=== PATIENT | female | born 1960 | race Two or more races ===

== ENCOUNTER 2020-02-29 15:39 | Inpatient (IN) | payer MEDICAID ==
[~2020-02-29] VITALS: Ht 154.9 cm; Wt 129.8 kg
[2020-02-29 15:54] VITALS: BP 136/92
--- NOTE | 2020-02-29 16:16 | Emergency Room Report ---
History of Present Illness General Chief Complaint: Skin Rash/Abscess Source: Patient, EMS Present Illness HPI Patient presents with complaints of increased swelling and redness to both of her feet and legs Patient is a poor historian reports that she has been having increased weakness over the past several days she tried to stand up and felt too weak Denies any fevers Denies any vomiting or diarrhea Patient reports recent hospitalization for similar Allergies: Coded Allergies: No Known Allergies (Unverified , 02/29/20) COVID-19 Screening Contact w/high risk pt: No Recent Travel to affected area: No Experienced COVID-19 symptoms?: No Patient History Past Medical History: see triage record Reviewed Nursing Documentation: PMH: Agreed; PSxH: Agreed Nursing Documentation-PMH Past Medical History: No History, Except For Review of Systems All Other Systems: negative except mentioned in HPI Physical Exam Vital Signs Date Time Temp Pulse Resp B/P (MAP) Pulse Ox O2 Delivery O2 Flow Rate FiO2 02/29/20 15:40 99.0 89 16 136/92 (107) 99 Room Air Sp02 EP Interpretation: reviewed, normal General Appearance: no apparent distress Head: normocephalic, atraumatic Eyes: bilateral eye PERRL, bilateral eye EOMI ENT: EOM grossly intact Neck: supple Respiratory: lungs clear, no respiratory distress, no retraction Cardiovascular #1: regular rate, rhythm Gastrointestinal: non tender, soft Musculoskeletal: other - Significant edema and erythema bilateral lower extremity, patient also has blistering on both feet given the edema Neurologic: alert, oriented x3 Skin: other - As above Lymphatic: no adenopathy Medical Decision Making Diagnostic Impression: Primary Impression: Cellulitis ER Course Given the patient's exam and presentation multiple differentials and consideration including but not limited to venous stasis Cellulitis, DVT, abscess Patient also on the work-up reveals no signs of anemia Started on IV antibiotics And will require further inpatient care Labs Test 02/29/20 16:32 White Blood Count 8.2 K/UL (4.8-10.8) Red Blood Count 2.26 M/UL (4.20-5.40) Hemoglobin 7.9 G/DL (12.0-16.0) Hematocrit 24.1 % (37.0-47.0) Mean Corpuscular Volume 107 FL (80-99) Mean Corpuscular Hemoglobin 35.1 PG (27.0-31.0) Mean Corpuscular Hemoglobin Concent 32.9 G/DL (32.0-36.0) Red Cell Distribution Width 16.0 % (11.6-14.8) Platelet Count 155 K/UL (150-450) Mean Platelet Volume 7.2 FL (6.5-10.1) Neutrophils (%) (Auto) % (45.0-75.0) Lymphocytes (%) (Auto) % (20.0-45.0) Monocytes (%) (Auto) % (1.0-10.0) Eosinophils (%) (Auto) % (0.0-3.0) Basophils (%) (Auto) % (0.0-2.0) Differential Total Cells Counted 100 Neutrophils % (Manual) 77 % (45-75) Lymphocytes % (Manual) 13 % (20-45) Monocytes % (Manual) 7 % (1-10) Eosinophils % (Manual) 3 % (0-3) Basophils % (Manual) 0 % (0-2) Band Neutrophils 0 % (0-8) Nucleated Red Blood Cells 10 /100 WBC Platelet Estimate Adequate Platelet Morphology Normal Hypochromasia 2+ Anisocytosis 1+ Macrocytosis 1+ Urine Color Yellow Urine Appearance Clear Urine pH 7 (4.5-8.0) Urine Specific [place] 1.010 (1.005-1.035) Urine Protein 2+ (NEGATIVE) Urine Glucose (UA) Negative (NEGATIVE) Urine Ketones 1+ (NEGATIVE) Urine Blood 1+ (NEGATIVE) Urine Nitrite Negative (NEGATIVE) Urine Bilirubin 2+ (NEGATIVE) Urine Ictotest Negative (NEGATIVE) Urine Urobilinogen 12 MG/DL (0.0-1.0) Urine Leukocyte Esterase 1+ (NEGATIVE) Urine RBC 2-4 /HPF (0 - 2) Urine WBC 5-10 /HPF (0 - 2) Urine Squamous Epithelial Cells Moderate /LPF (NONE/OCC) Urine Bacteria Few /HPF (NONE) Sodium Level 139 MMOL/L (136-145) Potassium Level 3.7 MMOL/L (3.5-5.1) Chloride Level 105 MMOL/L (98-107) Carbon Dioxide Level 28 MMOL/L (21-32) Anion Gap 6 mmol/L (5-15) Blood Urea Nitrogen 5 mg/dL (7-18) Creatinine 0.7 MG/DL (0.55-1.30) Estimat Glomerular Filtration Rate > 60 mL/min (>60) Glucose Level 97 MG/DL (74-106) Lactic Acid Level 1.80 mmol/L (0.4-2.0) Calcium Level 8.6 MG/DL (8.5-10.1) Total Bilirubin 1.1 MG/DL (0.2-1.0) Direct Bilirubin 0.5 MG/DL (0.0-0.3) Aspartate Amino Transf (AST/SGOT) 48 U/L (15-37) Alanine Aminotransferase (ALT/SGPT) 21 U/L (12-78) Alkaline Phosphatase 137 U/L (46-116) Total Creatine Kinase 244 U/L (26-308) Creatine Kinase MB 5.2 NG/ML (0.0-3.6) Creatine Kinase MB Relative Index 2.1 Troponin I 0.015 ng/mL (0.000-0.056) Pro-B-Type Natriuretic Peptide 968 pg/mL (0-125) Total Protein 7.7 G/DL (6.4-8.2) Albumin 2.0 G/DL (3.4-5.0) Globulin 5.7 g/dL Albumin/Globulin Ratio 0.4 (1.0-2.7) Lipase 99 U/L (73-393) Rhythm Strip Diag. Results EP Interpretation: yes Rate: 66 Rhythm: NSR, no PVC's, no ectopy Chest X-Ray Diagnostic Results Chest X-Ray Diagnostic Results : Chest X-Ray Ordered: Yes # of Views/Limited/Complete: 1 View Indication: Chest Pain EP Interpretation: Yes Interpretation: no pneumothorax, other - Cardiomegaly left lower lobe atelectasis versus effusion Impression: Other - Cardiomegaly left lower lobe atelectasis versus effusion Last Vital Signs Date Time Temp Pulse Resp B/P (MAP) Pulse Ox O2 Delivery O2 Flow Rate FiO2 02/29/20 15:54 99.0 87 16 136/92 99 Room Air Status: improved Disposition: ADMITTED INPATIENT Condition: Serious Celso Escalante Feb 29, 2020 16:16
[2020-02-29 16:48] LABS: APPEARANCE,URINE CLEAR; BILIRUBIN, URINE 2+ (NEGATIVE); GLUCOSE, URINE (UA) NEGATIVE (NEGATIVE); HEMATOCRIT 24.1 % (37.0-47.0); HEMOGLOBIN 7.9 G/DL (12.0-16.0); KETONES,URINE 1+ (NEGATIVE); MEAN CORPUSCULAR VOLUME 107 FL (80-99); NITRITE,URINE NEGATIVE (NEGATIVE); PH,URINE 7 (4.5-8.0); PLATELET COUNT 155 K/UL (150-450); PROTEIN,URINE 2+ (NEGATIVE); RED BLOOD COUNT 2.26 M/UL (4.20-5.40); UROBILINOGEN,URINE 12 MG/DL (0.0-1.0); WHITE BLOOD COUNT 8.2 K/UL (4.8-10.8)
--- NOTE | 2020-02-29 16:58 | Diagnostic Imaging Report ---
Indication: Chest pain Technique: One view of the chest Comparison: none Findings: Body habitus limits evaluation. The heart is enlarged. Before meals opacity at the left lung base may indicate some hazy infiltrate, although possibly exaggerated by overlying soft tissue. Impression: Cardiomegaly Possible left basilar infiltrate versus edema. Correlate with clinical findings
[2020-02-29 17:04] LABS: ANION GAP 6 mmol/L (5-15); BLOOD UREA NITROGEN 5 mg/dL (7-18); CALCIUM 8.6 MG/DL (8.5-10.1); CARBON DIOXIDE 28 MMOL/L (21-32); CHLORIDE 105 MMOL/L (98-107); CREATININE 0.7 MG/DL (0.55-1.30); POTASSIUM 3.7 MMOL/L (3.5-5.1); SODIUM 139 MMOL/L (136-145)
[2020-02-29 17:07] LABS: COLOR,URINE YELLOW
[2020-02-29 17:08] LABS: LEUKOCYTE ESTERASE ,URINE 1+ (NEGATIVE)
[2020-02-29 17:18] LABS: ALANINE AMINOTRANSFERASE 21 U/L (12-78); ALBUMIN/GLOBULIN RATIO 0.4 (1.0-2.7); ALKALINE PHOSPHATASE 137 U/L (46-116); ASPARTATE AMINO TRANSFERASE 48 U/L (15-37); BILIRUBIN,TOTAL 1.1 MG/DL (0.2-1.0); CKMB 5.2 NG/ML (0.0-3.6); CREATINE KINASE 244 U/L (26-308)
[2020-02-29 17:19] LABS: BILIRUBIN,DIRECT 0.5 MG/DL (0.0-0.3)
[2020-02-29] MEDS ORDERED: cefTRIAXone 1 GM in D5W 55 ML IVPB ONE (18:15)
[2020-02-29] MEDS ORDERED: Vancomycin 1.5gm/NS Premix 275 ML IVPB SCH (18:15)
[2020-02-29] MEDS ORDERED: Vancomycin 1.5 GM in NS 275 ML IVPB SCH (18:17)
[2020-02-29 18:34] VITALS: BP 135/90
[2020-02-29] MEDS ORDERED: SYNTHROID75 MCG ORAL (20:21)
[2020-02-29 20:36] VITALS: BP 103/53
[2020-03-01] VITALS: BP 92/57
[2020-03-01 04:20] VITALS: BP 107/44
[2020-03-01 06:26] LABS: HEMATOCRIT 19.4 % (37.0-47.0); MEAN CORPUSCULAR VOLUME 100 FL (80-99); PLATELET COUNT 136 K/UL (150-450); RED BLOOD COUNT 1.94 M/UL (4.20-5.40); RED CELL DISTRIBUTION WIDTH 14.7 % (11.6-14.8); WHITE BLOOD COUNT 6.5 K/UL (4.8-10.8)
[2020-03-01 06:46] LABS: ANION GAP 9 mmol/L (5-15); BLOOD UREA NITROGEN 5 mg/dL (7-18); CARBON DIOXIDE 25 MMOL/L (21-32); CHLORIDE 108 MMOL/L (98-107); CREATININE 0.9 MG/DL (0.55-1.30); POTASSIUM 3.6 MMOL/L (3.5-5.1); SODIUM 142 MMOL/L (136-145)
[2020-03-01 08:00] VITALS: BP 101/49
[2020-03-01 08:11] LABS: CALCIUM 8.1 MG/DL (8.5-10.1)
--- NOTE | 2020-03-01 09:30 | General Progress Note ---
Assessment/Plan Assessment/Plan: macrocytic anemia elevated LFTS ?cirrhosis cellulitis abd us anemia work up abx per id hepatitis panel will fu Subjective Allergies: Coded Allergies: No Known Allergies (Unverified , 02/29/20) Objective Last 24 Hour Vital Signs Date Time Temp Pulse Resp B/P (MAP) Pulse Ox O2 Delivery O2 Flow Rate FiO2 03/01/20 08:00 98.4 83 20 101/49 (66) 93 03/01/20 04:20 98.1 90 20 107/44 (65) 94 02/29/20 20:36 97.3 80 20 103/53 (70) 96 02/29/20 20:32 Nasal Cannula 2.0 02/29/20 20:03 Nasal Cannula 2.0 02/29/20 20:02 Nasal Cannula 2.0 02/29/20 18:42 98.9 89 18 140/90 99 Room Air 02/29/20 18:34 99.0 86 18 135/90 99 Room Air 02/29/20 15:54 99.0 87 16 136/92 99 Room Air 02/29/20 15:40 99.0 89 16 136/92 (107) 99 Room Air Intake and Output 02/29/20 03/01/20 19:00 07:00 Intake Total 275.0 ml Balance 275.0 ml Intake IV Total 275.0 ml # Voids 1 1 Laboratory Tests 02/29/20 16:32: White Blood Count 8.2, Red Blood Count 2.26L, Hemoglobin 7.9L, Hematocrit 24.1L , Mean Corpuscular Volume 107H, Mean Corpuscular Hemoglobin 35.1H, Mean Corpuscular Hemoglobin Concent 32.9, Red Cell Distribution Width 16.0H, Platelet Count 155, Mean Platelet Volume 7.2, Neutrophils (%) (Auto) , Lymphocytes (%) (Auto) , Monocytes (%) (Auto) , Eosinophils (%) (Auto) , Basophils (%) (Auto) , Differential Total Cells Counted 100, Neutrophils % ( Manual) 77H, Lymphocytes % (Manual) 13L, Monocytes % (Manual) 7, Eosinophils % ( Manual) 3, Basophils % (Manual) 0, Band Neutrophils 0, Nucleated Red Blood Cells 10, Platelet Estimate Adequate, Platelet Morphology Normal, Hypochromasia 2+, Anisocytosis 1+, Macrocytosis 1+, Urine Color Yellow, Urine Appearance Clear , Urine pH 7, Urine Specific [place] 1.010, Urine Protein 2+H, Urine Glucose (UA ) Negative, Urine Ketones 1+H, Urine Blood 1+H, Urine Nitrite Negative, Urine Bilirubin 2+H, Urine Ictotest Negative, Urine Urobilinogen 12H, Urine Leukocyte Esterase 1+H, Urine RBC 2-4H, Urine WBC 5-10H, Urine Squamous Epithelial Cells ModerateH, Urine Bacteria Few, Sodium Level 139, Potassium Level 3.7, Chloride Level 105, Carbon Dioxide Level 28, Anion Gap 6, Blood Urea Nitrogen 5L, Creatinine 0.7, Estimat Glomerular Filtration Rate > 60, Glucose Level 97, Lactic Acid Level 1.80, Calcium Level 8.6, Total Bilirubin 1.1H, Direct Bilirubin 0.5H, Aspartate Amino Transf (AST/SGOT) 48H, Alanine Aminotransferase (ALT/SGPT) 21, Alkaline Phosphatase 137H, Total Creatine Kinase 244, Creatine Kinase MB 5.2H, Creatine Kinase MB Relative Index 2.1, Troponin I 0.015, Pro-B- Type Natriuretic Peptide 968H, Total Protein 7.7, Albumin 2.0L, Globulin 5.7, Albumin/Globulin Ratio 0.4L, Lipase 99 03/01/20 05:20: White Blood Count 6.5, Red Blood Count 1.94L, Hemoglobin 7.0L, Hematocrit 19.4L , Mean Corpuscular Volume 100H, Mean Corpuscular Hemoglobin 36.0H, Mean Corpuscular Hemoglobin Concent 36.0, Red Cell Distribution Width 14.7, Platelet Count 136L, Mean Platelet Volume 6.2L, Neutrophils (%) (Auto) , Lymphocytes (%) (Auto) , Monocytes (%) (Auto) , Eosinophils (%) (Auto) , Basophils (%) (Auto) , Differential Total Cells Counted 100, Neutrophils % (Manual) 73, Lymphocytes % ( Manual) 13L, Monocytes % (Manual) 12H, Eosinophils % (Manual) 2, Basophils % ( Manual) 0, Band Neutrophils 0, Platelet Estimate DecreasedL, Platelet Morphology Normal, Hypochromasia 3+, Anisocytosis 1+, Sodium Level 142, Potassium Level 3.6, Chloride Level 108H, Carbon Dioxide Level 25, Anion Gap 9, Blood Urea Nitrogen 5L, Creatinine 0.9, Estimat Glomerular Filtration Rate > 60 , Glucose Level 106, Calcium Level 8.1L, Spherocytes 2+ Height (Feet): 5 Height (Inches): 1.00 Weight (Pounds): 289 General Appearance: alert EENT: normal ENT inspection Neck: supple Cardiovascular: normal rate Respiratory/Chest: decreased breath sounds Abdomen: normal bowel sounds, non tender, soft Extremities: non-tender Tam Spicer MD Mar 01, 2020 09:30
--- NOTE | 2020-03-01 11:58 | Consultation ---
History of Present Illness General Date patient seen: Mar 01, 2020 Reason for Hospitalization: Skin Rash/Abscess Present Illness HPI 59 year old morbidly obese female with multiple medical comorbidities presents to [facility] ED with complaints of increased swelling and redness to both of her feet and legs. Patient is a poor historian reports that she has been having increased weakness over the past several days she tried to stand up and felt too weak. Denies any fevers. Denies any vomiting or diarrhea. states pain in both legs as burning pain. no n/v/f/c. labs abnormal. admitted for care and management. surgery called to evaluate and assist with care. patient seen, chart reviewed patient examined. Allergies: Coded Allergies: No Known Allergies (Unverified , 02/29/20) COVID-19 Screening Contact w/high risk pt: No Recent Travel to affected area: No Experienced COVID-19 symptoms?: No Medication History Scheduled Levothyroxine Sodium* (Synthroid*), 75 MCG ORAL DAILY, (Reported) Patient History Limited by: medical condition History Provided By: Patient, Medical Record, PMD Healthcare decision maker Resuscitation status Advanced Directive on File No Past Medical/Surgical History Past Medical/Surgical History: (1) Cellulitis Review of Systems Review of Symptoms General ROS: no weight loss or fever Psychological ROS: no depression or mood changes, no memory loss Ophthalmic ROS: no visual changes or eye irritation ENT ROS: no nasal congestion, hearing loss, dizziness Allergy and Immunology ROS: no allergic symptoms or urticaria Hematological and Lymphatic ROS: no swollen glands, unusual bleeding or bruising Endocrine ROS: no polyuria, polydipsia, weight changes, temperature intolerance Respiratory ROS: no cough, shortness of breath, or wheezing Cardiovascular ROS: no chest pain or dyspnea on exertion Gastrointestinal ROS: denies abdominal pain, bright red blood in stool. Musculoskeletal ROS: ++ LE myalgias or arthralgias Neurological ROS: no TIA or stroke symptoms Dermatological ROS: no new or changing skin lesions, rashes or pruritis Physical Exam Physical Exam General appearance: alert, cooperative, no distress, appears stated age Head: Normocephalic, without obvious abnormality, atraumatic Eyes: conjunctivae/corneas clear. PERRL, EOM's intact. Fundi benign Throat: Lips, mucosa, and tongue normal. Teeth and gums normal Neck: supple, symmetrical, trachea midline, no adenopathy, thyroid: not enlarged, symmetric, no tenderness/mass/nodules, no carotid bruit and no JVD Lungs: clear to auscultation bilaterally Heart: regular rate and rhythm, S1, S2 normal, no murmur, click, rub or gallop Abdomen: soft, non-tender. Bowel sounds normal. No masses, no organomegaly Extremities: extremities normal, atraumatic, no cyanosis or edema Pulses: 2+ and symmetric Skin: Skin color, texture, turgor normal. No rashes or lesions Neurologic: Grossly normal Last 24 Hour Vital Signs Date Time Temp Pulse Resp B/P (MAP) Pulse Ox O2 Delivery O2 Flow Rate FiO2 03/01/20 09:00 Nasal Cannula 2.0 03/01/20 08:00 98.4 83 20 101/49 (66) 93 03/01/20 04:20 98.1 90 20 107/44 (65) 94 02/29/20 20:36 97.3 80 20 103/53 (70) 96 02/29/20 20:32 Nasal Cannula 2.0 02/29/20 20:03 Nasal Cannula 2.0 02/29/20 20:02 Nasal Cannula 2.0 02/29/20 18:42 98.9 89 18 140/90 99 Room Air 02/29/20 18:34 99.0 86 18 135/90 99 Room Air 02/29/20 15:54 99.0 87 16 136/92 99 Room Air 02/29/20 15:40 99.0 89 16 136/92 (107) 99 Room Air Intake and Output 02/29/20 03/01/20 19:00 07:00 Intake Total 275.0 ml Balance 275.0 ml Intake IV Total 275.0 ml # Voids 1 1 Laboratory Tests Test 02/29/20 16:32 03/01/20 05:20 White Blood Count 8.2 K/UL (4.8-10.8) 6.5 K/UL (4.8-10.8) Red Blood Count 2.26 M/UL (4.20-5.40) L 1.94 M/UL (4.20-5.40) L Hemoglobin 7.9 G/DL (12.0-16.0) L 7.0 G/DL (12.0-16.0) L Hematocrit 24.1 % (37.0-47.0) L 19.4 % (37.0-47.0) L Mean Corpuscular Volume 107 FL (80-99) H 100 FL (80-99) H Mean Corpuscular Hemoglobin 35.1 PG (27.0-31.0) H 36.0 PG (27.0-31.0) H Mean Corpuscular Hemoglobin Concent 32.9 G/DL (32.0-36.0) 36.0 G/DL (32.0-36.0) Red Cell Distribution Width 16.0 % (11.6-14.8) H 14.7 % (11.6-14.8) Platelet Count 155 K/UL (150-450) 136 K/UL (150-450) L Mean Platelet Volume 7.2 FL (6.5-10.1) 6.2 FL (6.5-10.1) L Neutrophils (%) (Auto) % (45.0-75.0) % (45.0-75.0) Lymphocytes (%) (Auto) % (20.0-45.0) % (20.0-45.0) Monocytes (%) (Auto) % (1.0-10.0) % (1.0-10.0) Eosinophils (%) (Auto) % (0.0-3.0) % (0.0-3.0) Basophils (%) (Auto) % (0.0-2.0) % (0.0-2.0) Differential Total Cells Counted 100 100 Neutrophils % (Manual) 77 % (45-75) H 73 % (45-75) Lymphocytes % (Manual) 13 % (20-45) L 13 % (20-45) L Monocytes % (Manual) 7 % (1-10) 12 % (1-10) H Eosinophils % (Manual) 3 % (0-3) 2 % (0-3) Basophils % (Manual) 0 % (0-2) 0 % (0-2) Band Neutrophils 0 % (0-8) 0 % (0-8) Nucleated Red Blood Cells 10 /100 WBC Platelet Estimate Adequate Decreased L Platelet Morphology Normal Normal Hypochromasia 2+ 3+ Anisocytosis 1+ 1+ Macrocytosis 1+ Urine Color Yellow Urine Appearance Clear Urine pH 7 (4.5-8.0) Urine Specific [place] 1.010 (1.005-1.035) Urine Protein 2+ (NEGATIVE) H Urine Glucose (UA) Negative (NEGATIVE) Urine Ketones 1+ (NEGATIVE) H Urine Blood 1+ (NEGATIVE) H Urine Nitrite Negative (NEGATIVE) Urine Bilirubin 2+ (NEGATIVE) H Urine Ictotest Negative (NEGATIVE) Urine Urobilinogen 12 MG/DL (0.0-1.0) H Urine Leukocyte Esterase 1+ (NEGATIVE) H Urine RBC 2-4 /HPF (0 - 2) H Urine WBC 5-10 /HPF (0 - 2) H Urine Squamous Epithelial Cells Moderate /LPF (NONE/OCC) H Urine Bacteria Few /HPF (NONE) Sodium Level 139 MMOL/L (136-145) 142 MMOL/L (136-145) Potassium Level 3.7 MMOL/L (3.5-5.1) 3.6 MMOL/L (3.5-5.1) Chloride Level 105 MMOL/L (98-107) 108 MMOL/L (98-107) H Carbon Dioxide Level 28 MMOL/L (21-32) 25 MMOL/L (21-32) Anion Gap 6 mmol/L (5-15) 9 mmol/L (5-15) Blood Urea Nitrogen 5 mg/dL (7-18) L 5 mg/dL (7-18) L Creatinine 0.7 MG/DL (0.55-1.30) 0.9 MG/DL (0.55-1.30) Estimat Glomerular Filtration Rate > 60 mL/min (>60) > 60 mL/min (>60) Glucose Level 97 MG/DL (74-106) 106 MG/DL (74-106) Lactic Acid Level 1.80 mmol/L (0.4-2.0) Calcium Level 8.6 MG/DL (8.5-10.1) 8.1 MG/DL (8.5-10.1) L Total Bilirubin 1.1 MG/DL (0.2-1.0) H Direct Bilirubin 0.5 MG/DL (0.0-0.3) H Aspartate Amino Transf (AST/SGOT) 48 U/L (15-37) H Alanine Aminotransferase (ALT/SGPT) 21 U/L (12-78) Alkaline Phosphatase 137 U/L (46-116) H Total Creatine Kinase 244 U/L (26-308) Creatine Kinase MB 5.2 NG/ML (0.0-3.6) H Creatine Kinase MB Relative Index 2.1 Troponin I 0.015 ng/mL (0.000-0.056) Pro-B-Type Natriuretic Peptide 968 pg/mL (0-125) H Total Protein 7.7 G/DL (6.4-8.2) Albumin 2.0 G/DL (3.4-5.0) L Globulin 5.7 g/dL Albumin/Globulin Ratio 0.4 (1.0-2.7) L Lipase 99 U/L (73-393) Spherocytes 2+ Height (Feet): 5 Height (Inches): 1.00 Weight (Pounds): 289 Medications Current Medications Medications (Trade) Dose Ordered Sig/Dolores Route PRN Reason Start Time Stop Time Status Last Admin Dose Admin Acetaminophen (Tylenol) 650 mg Q4H PRN ORAL Mild Pain (Pain Scale 1-3) 02/29/20 20:00 03/30/20 19:59 Diphenhydramine HCl (Benadryl) 25 mg Q4H PRN ORAL moderate itching 02/29/20 20:00 03/30/20 19:59 Diphenhydramine HCl (Benadryl) 50 mg Q4H PRN ORAL SEVERE ITCHING 02/29/20 20:00 03/30/20 19:59 Vancomycin HCl (Vanco rx to dose) 1 ea DAILY PRN MISC Per rx protocol 03/01/20 11:00 03/31/20 10:59 Vancomycin HCl 1 gm/Dextrose 275 ml @ 183.708 mls/hr Q12H IVPB 03/01/20 13:00 03/06/20 12:59 Assessment/Plan Problem List: (1) Cellulitis Assessment & Plan: bilateral lower extremity cellulitis / edema chronic venous status changes dermatitis no abscess no purulent drainage ulcerations forming. keep lower extremity elevated while in bed apply skin protectant / moisturizing cream daily okay to shower okay to wrap soft after cream abx as per ID for cellulitis okay for diet duplex ordered trend labs will follow with recs thank you ICD Codes: L03.90 - Cellulitis, unspecified SNOMED: [id number] Qualifiers: Qualified Codes: L03.119 - Cellulitis of unspecified part of limb Theron Sotomayor Mar 01, 2020 11:58
[2020-03-01 12:00] VITALS: BP 115/53
--- NOTE | 2020-03-01 12:50 | Diagnostic Imaging Report ---
Indication: Abdominal pain Technique: Multiplanar grayscale and duplex Doppler imaging of the abdomen Comparison: None Findings: Coarsened and increased hepatic echotexture with a subtle nodular contour suggesting cirrhotic change. There is trace free fluid/ascites about the liver. No focal hepatic mass lesion is appreciated sonographically. Imaged hepatic veins appear patent. Main portal vein appears patent with normal direction of flow. Gallbladder is not visualized and may be surgically absent. No appreciable intrahepatic biliary ductal dilatation. Common bile duct measures 4 mm diameter. Pancreas is suboptimally evaluated however the imaged portions of the pancreatic head appears grossly unremarkable. Kidneys demonstrate normal echogenicity. There is no hydronephrosis or sonographically appreciable renal stone. Spleen is mildly enlarged measuring 14 cm in length. The aorta is obscured by overlying bowel gas. IMPRESSION: * Coarsened liver echotexture and nodular contour suggesting cirrhosis. * Sequela of portal hypertension including mild splenomegaly and trace perihepatic ascites. * Gallbladder is not visualized and likely surgically absent. Correlate with surgical history. No biliary ductal dilatation.
[2020-03-01] MEDS: Vancomycin 1gm/D5W 275ml IVPB SCH ×2 (13:18)
--- NOTE | 2020-03-01 13:25 | Diagnostic Imaging Report ---
Indication:Leg pain and swelling Technique: Grayscale and duplex Doppler imaging of the veins in both lower extremities performed in real time utilizing compression and augmentation. Note that patient refused imaging of the right calf and left leg Comparison: None Findings: Duplex Doppler interrogation of the veins in right lower extremity is performed from the common femoral vein to the popliteal vein. Normal venous compressibility demonstrated throughout. No thrombus identified. Waveform analysis shows good respiratory phasicity and augmentation. Patient refused evaluation of the left leg. IMPRESSION: No evidence of deep venous thrombosis involving the visualized veins of the RIGHT lower extremity. Per ct technologist patient refused evaluation of the left leg.
--- NOTE | 2020-03-01 14:00 | Consultation ---
History of Present Illness General Chief Complaint: Skin Rash/Abscess Present Illness Allergies: Coded Allergies: No Known Allergies (Unverified , 02/29/20) Medication History Scheduled Levothyroxine Sodium* (Synthroid*), 75 MCG ORAL DAILY, (Reported) Patient History Healthcare decision maker Resuscitation status Advanced Directive on File No Physical Exam Last 24 Hour Vital Signs Date Time Temp Pulse Resp B/P (MAP) Pulse Ox O2 Delivery O2 Flow Rate FiO2 03/01/20 12:00 98.1 81 20 115/53 (73) 96 03/01/20 09:00 Nasal Cannula 2.0 03/01/20 08:00 98.4 83 20 101/49 (66) 93 03/01/20 04:20 98.1 90 20 107/44 (65) 94 02/29/20 20:36 97.3 80 20 103/53 (70) 96 02/29/20 20:32 Nasal Cannula 2.0 02/29/20 20:03 Nasal Cannula 2.0 02/29/20 20:02 Nasal Cannula 2.0 02/29/20 18:42 98.9 89 18 140/90 99 Room Air 02/29/20 18:34 99.0 86 18 135/90 99 Room Air 02/29/20 15:54 99.0 87 16 136/92 99 Room Air 02/29/20 15:40 99.0 89 16 136/92 (107) 99 Room Air Intake and Output 02/29/20 03/01/20 19:00 07:00 Intake Total 275.0 ml Balance 275.0 ml Intake IV Total 275.0 ml # Voids 1 1 Laboratory Tests Test 02/29/20 16:32 03/01/20 05:20 White Blood Count 8.2 K/UL (4.8-10.8) 6.5 K/UL (4.8-10.8) Red Blood Count 2.26 M/UL (4.20-5.40) L 1.94 M/UL (4.20-5.40) L Hemoglobin 7.9 G/DL (12.0-16.0) L 7.0 G/DL (12.0-16.0) L Hematocrit 24.1 % (37.0-47.0) L 19.4 % (37.0-47.0) L Mean Corpuscular Volume 107 FL (80-99) H 100 FL (80-99) H Mean Corpuscular Hemoglobin 35.1 PG (27.0-31.0) H 36.0 PG (27.0-31.0) H Mean Corpuscular Hemoglobin Concent 32.9 G/DL (32.0-36.0) 36.0 G/DL (32.0-36.0) Red Cell Distribution Width 16.0 % (11.6-14.8) H 14.7 % (11.6-14.8) Platelet Count 155 K/UL (150-450) 136 K/UL (150-450) L Mean Platelet Volume 7.2 FL (6.5-10.1) 6.2 FL (6.5-10.1) L Neutrophils (%) (Auto) % (45.0-75.0) % (45.0-75.0) Lymphocytes (%) (Auto) % (20.0-45.0) % (20.0-45.0) Monocytes (%) (Auto) % (1.0-10.0) % (1.0-10.0) Eosinophils (%) (Auto) % (0.0-3.0) % (0.0-3.0) Basophils (%) (Auto) % (0.0-2.0) % (0.0-2.0) Differential Total Cells Counted 100 100 Neutrophils % (Manual) 77 % (45-75) H 73 % (45-75) Lymphocytes % (Manual) 13 % (20-45) L 13 % (20-45) L Monocytes % (Manual) 7 % (1-10) 12 % (1-10) H Eosinophils % (Manual) 3 % (0-3) 2 % (0-3) Basophils % (Manual) 0 % (0-2) 0 % (0-2) Band Neutrophils 0 % (0-8) 0 % (0-8) Nucleated Red Blood Cells 10 /100 WBC Platelet Estimate Adequate Decreased L Platelet Morphology Normal Normal Hypochromasia 2+ 3+ Anisocytosis 1+ 1+ Macrocytosis 1+ Urine Color Yellow Urine Appearance Clear Urine pH 7 (4.5-8.0) Urine Specific Mcneal 1.010 (1.005-1.035) Urine Protein 2+ (NEGATIVE) H Urine Glucose (UA) Negative (NEGATIVE) Urine Ketones 1+ (NEGATIVE) H Urine Blood 1+ (NEGATIVE) H Urine Nitrite Negative (NEGATIVE) Urine Bilirubin 2+ (NEGATIVE) H Urine Ictotest Negative (NEGATIVE) Urine Urobilinogen 12 MG/DL (0.0-1.0) H Urine Leukocyte Esterase 1+ (NEGATIVE) H Urine RBC 2-4 /HPF (0 - 2) H Urine WBC 5-10 /HPF (0 - 2) H Urine Squamous Epithelial Cells Moderate /LPF (NONE/OCC) H Urine Bacteria Few /HPF (NONE) Sodium Level 139 MMOL/L (136-145) 142 MMOL/L (136-145) Potassium Level 3.7 MMOL/L (3.5-5.1) 3.6 MMOL/L (3.5-5.1) Chloride Level 105 MMOL/L (98-107) 108 MMOL/L (98-107) H Carbon Dioxide Level 28 MMOL/L (21-32) 25 MMOL/L (21-32) Anion Gap 6 mmol/L (5-15) 9 mmol/L (5-15) Blood Urea Nitrogen 5 mg/dL (7-18) L 5 mg/dL (7-18) L Creatinine 0.7 MG/DL (0.55-1.30) 0.9 MG/DL (0.55-1.30) Estimat Glomerular Filtration Rate > 60 mL/min (>60) > 60 mL/min (>60) Glucose Level 97 MG/DL (74-106) 106 MG/DL (74-106) Lactic Acid Level 1.80 mmol/L (0.4-2.0) Calcium Level 8.6 MG/DL (8.5-10.1) 8.1 MG/DL (8.5-10.1) L Total Bilirubin 1.1 MG/DL (0.2-1.0) H Direct Bilirubin 0.5 MG/DL (0.0-0.3) H Aspartate Amino Transf (AST/SGOT) 48 U/L (15-37) H Alanine Aminotransferase (ALT/SGPT) 21 U/L (12-78) Alkaline Phosphatase 137 U/L (46-116) H Total Creatine Kinase 244 U/L (26-308) Creatine Kinase MB 5.2 NG/ML (0.0-3.6) H Creatine Kinase MB Relative Index 2.1 Troponin I 0.015 ng/mL (0.000-0.056) Pro-B-Type Natriuretic Peptide 968 pg/mL (0-125) H Total Protein 7.7 G/DL (6.4-8.2) Albumin 2.0 G/DL (3.4-5.0) L Globulin 5.7 g/dL Albumin/Globulin Ratio 0.4 (1.0-2.7) L Lipase 99 U/L (73-393) Spherocytes 2+ Height (Feet): 5 Height (Inches): 1.00 Weight (Pounds): 289 Medications Current Medications Medications (Trade) Dose Ordered Sig/Dolores Route PRN Reason Start Time Stop Time Status Last Admin Dose Admin Acetaminophen (Tylenol) 650 mg Q4H PRN ORAL Mild Pain (Pain Scale 1-3) 02/29/20 20:00 03/30/20 19:59 Diphenhydramine HCl (Benadryl) 25 mg Q4H PRN ORAL moderate itching 02/29/20 20:00 03/30/20 19:59 Diphenhydramine HCl (Benadryl) 50 mg Q4H PRN ORAL SEVERE ITCHING 02/29/20 20:00 03/30/20 19:59 Vancomycin HCl (Vanco rx to dose) 1 ea DAILY PRN MISC Per rx protocol 03/01/20 11:00 03/31/20 10:59 Vancomycin HCl 1 gm/Dextrose 275 ml @ 183.708 mls/hr Q12H IVPB 03/01/20 13:00 03/06/20 12:59 03/01/20 13:18 Assessment/Plan Assessment/Plan: Hematology Consultation REQ : Sindi Blevins RFC: Pancytopenia, Anemia severe DOS: 03/01/2020 ID Patient presents with complaints of increased swelling and redness to both of her feet and legs Patient is a poor historian reports that she has been having increased weakness over the past several days she tried to stand up and felt too weak Denies any fevers Denies any vomiting or diarrhea Has been seen by gi and surg Patient reports recent hospitalization for similar Allergies: Coded Allergies: No Known Allergies (Unverified , 02/29/20) COVID-19 Screening Contact w/high risk pt: No Recent Travel to affected area: No Experienced COVID-19 symptoms?: No Patient History Past Medical History: see triage record Reviewed Nursing Documentation: PMH: Agreed; PSxH: Agreed Social hx: 6 kids, no Noris, is single Nursing Documentation-PMH Past Medical History: No History, Except For ROS (review of systems): Constitutional: No fever, no chills, no night sweats, no fatigue Skin: No rashes, lumps, itchiness, dryness HEENT: No CEDILLO, ear ache, visual changes, double vision, nosebleeds Breasts: No lumps, pain, discharge Pulmonary: No cough, sputum, shortness of breath, coughing up blood Cardiovascular: No chest pain, tightness, palpitations, syncope, PND GI: No nausea, vomiting, diarrhea, melena, hematochezia, change in appetite, : No dysuria, frequency, urgency, urinary incontinence, foamy urine Musculoskeletal: No joint swelling or muscle pain, trauma, back pain Neurologic: No dizziness, fainting, seizures, changes in smell or taste Psychiatric: No nervousness, stress, or depression, anxiety, hallucinations Endocrine: No weight change, heat or cold intolerance, tremor, insomnia Physical Exam: Vitals: reviewed General: NAD HEENT: nc, at Neck: supple Chest: clear breath sounds bilaterally Cardiovascular: RRR, no s3, s4 EXT ++ Significant edema and erythema bilateral lower extremity, patient also has blistering on both feet given the edema, whittish overcrust/crusting++ Neurologic: alert, oriented x3 Skin: other - As above labs: noted Imaging: reviewed Assessment and Recs # Pancytopenia -- multiple etiologies could be related to underlying liver disease, medication-induced, infection versus viral syndrome versus underlying bone marrow cause, in this case, has severe liver disease and cirrhosis --> peripheral smear has been ordered and does not show significant abnormalities --> Medications have been reviewed --> Continue to monitor for improvement, trend cbc --> Hep panel and HIV have been ordered --> US abd ordered to r/o cirrhosis and hepatosplenomegaly ->CIRRHOSIS IS NOTED , LARGE SPLEEN --> reverse isolation if ANC is <2000 --> Give neupogen if ANC <1000 --> Transfuse if hgb <7, with 1 unit prbc --> consider bone marrow biopsy if no other causes are found --> anemia panel ordered as well # Cellulitis of the lower extremitiies --> continue abx as needed as per id --> Started on IV antibiotics --> as per surg recs, wound care # Elevated LFTS The timing of this note does not necessarily reflect the time of the patient was seen. Greatly appreciate consultation. rBett Mcclain MD Mar 01, 2020 14:00
[2020-03-01 14:46] LABS: FERRITIN 792 NG/ML (8-388)
[2020-03-01 16:00] VITALS: BP 100/52
--- NOTE | 2020-03-01 19:30 | Consultation ---
DATE OF CONSULTATION: 03/01/2020 INFECTIOUS DISEASES CONSULTATION CONSULTING PHYSICIAN: Jonathon Shah MD. PRIMARY ATTENDING PHYSICIAN: Celso Moreno MD. REASON FOR CONSULTATION: Cellulitis of legs. HISTORY OF PRESENT ILLNESS: This is a 59-year-old female admitted yesterday complaining of pain in bilateral foot, cannot walk, has also swelling of the legs, developed blister in the area, some of them are broken. PAST MEDICAL HISTORY: The patient is obese, anemia. ALLERGIES: No known drug allergies. MEDICATIONS: Get a dose of vancomycin and ceftriaxone. In the ER getting Tylenol and diphenhydramine in the floor. SOCIAL HISTORY: Single. Says is homeless. Denies alcohol, drug abuse, smoking. REVIEW OF SYSTEMS: No fever. No chills. No shortness of breath. No coughing. No nausea. No vomiting. She has pain in the legs. PHYSICAL EXAMINATION: VITAL SIGNS: Temperature 98.4, pulse 83, blood pressure 101/49. GENERAL APPEARANCE: Seems obese. HEAD AND NECK: Pale conjunctiva. HEART: Normal rate. LUNGS: Clear. ABDOMEN: Obese and soft. EXTREMITIES: Edema of legs, likely chronic lymphedema. SKIN: Erythema in both lower extremities below-knee associated with chronic skin changes, has blisters in both feet, some of them are open. LABORATORY AND DIAGNOSTIC DATA: Sodium 142, potassium 3.6, chloride 108, bicarbonate 25, BUN 5, creatinine 0.9, glucose 106. WBC 6.5, hemoglobin 7, hematocrit 19.4, and platelets is 136. Chest x-ray showed cardiomegaly, possible left basilar infiltrate versus edema. IMPRESSION: 1. Bilateral leg cellulitis, seems to be purulent. 2. Anemia. 3. Slight elevation in transaminase level. 4. Thrombocytopenia. 5. Homeless 6. Morbid obesity. RECOMMENDATION: We will continue with IV vancomycin. We will ask for wound culture. We will check HIV status. At the end of my exam, I thank Dr. Moreno, for involving me in the care of this patient. Jonathon Shah M.D. : Jessica JOB#: [id number] CC: ROMAN
[2020-03-01 20:00] VITALS: BP 107/60
[2020-03-01] MEDS: Morphine Sulfate 2mg/ml Inj(IV/IM USE ONLY) IVP PRN (20:48)
[2020-03-02] VITALS (8 sets, daily range): BP systolic 92–118; BP diastolic 52–71
[2020-03-02] MEDS: Vancomycin 1gm/D5W 275ml IVPB SCH ×4 (01:21→15:58)
--- NOTE | 2020-03-02 04:14 | History and Physical Report ---
DATE OF ADMISSION: 02/29/2020 HISTORY OF PRESENT ILLNESS: The patient is here for bilateral leg cellulitis and anemia. The patient does have some leg pain as well. Denies nausea, vomiting, or diarrhea. The patient had increased swelling in the legs and redness of both legs, and is a poor historian, and is complaining of weakness. Denies shortness of breath. Denies cough. Admitted for lower extremity cellulitis as well as anemia. PAST MEDICAL HISTORY: None. PAST SURGICAL HISTORY: None. ALLERGIES: No known allergies. MEDICATIONS: None. FAMILY HISTORY: Noncontributory. SOCIAL HISTORY: Denies alcohol or illicit drugs. Has a history of smoking. REVIEW OF SYSTEMS: HEENT: Denies headaches. Respiratory: Denies shortness of breath. Denies cough. Cardiovascular: Denies chest pain. Gastrointestinal: Denies nausea, vomiting, or diarrhea. Extremities: Reports worsening leg edema and redness as well as weakness. Central Nervous System: No change in speech pattern. PHYSICAL EXAMINATION: VITAL SIGNS: Temperature is 98.1, pulse is 90, blood pressure 107/44. HEENT: PERRLA. NECK: Supple. No lymphadenopathy. CHEST: Clear to auscultation. CARDIOVASCULAR: Regular rate and rhythm. No murmurs or extra sounds. GASTROINTESTINAL: Soft, nontender, nondistended. No organomegaly. EXTREMITIES: Does have edema and redness. Warm to touch in the lower extremities. Able to moves all extremities. Reflexes equal on both sides. LABORATORY DATA: WBC of 8.3, hemoglobin 7.9, platelets of 155. Sodium 139, potassium 3.7. Troponin 0.015. ASSESSMENT AND PLAN: Cellulitis of lower extremities and anemia. I have consulted Dr. Brett Mcclain and Dr. Jonathon Shah as well as Dr. Barrientos and Dr. Case for leg pain as well as elevated LFTs as well as for anemia workup. Consult with those doctors for those reasons. We need to know why the patient is anemic as well. I have consulted Dr. Barrientos and Dr. Brett Mcclain for anemia workup as well as for possible transfusion. Antibiotics per Dr. Jonathon Shah. Ali Hadadz, M.D. DR: Cem JOB#: [id number] CC:
[2020-03-02 06:48] LABS: INR 1.5 (0.9-1.1)
[2020-03-02 06:58] LABS: ALANINE AMINOTRANSFERASE 26 U/L (12-78); ALBUMIN/GLOBULIN RATIO 0.4 (1.0-2.7); ALKALINE PHOSPHATASE 125 U/L (46-116); ANION GAP 9 mmol/L (5-15); ASPARTATE AMINO TRANSFERASE 53 U/L (15-37); BILIRUBIN,TOTAL 0.8 MG/DL (0.2-1.0); BLOOD UREA NITROGEN 6 mg/dL (7-18); CALCIUM 7.5 MG/DL (8.5-10.1); CARBON DIOXIDE 25 MMOL/L (21-32); CHLORIDE 106 MMOL/L (98-107); CREATININE 0.9 MG/DL (0.55-1.30); POTASSIUM 3.3 MMOL/L (3.5-5.1); SODIUM 140 MMOL/L (136-145)
[2020-03-02 06:59] LABS: HEMATOCRIT 20.5 % (37.0-47.0); HEMOGLOBIN 7.1 G/DL (12.0-16.0); MEAN CORPUSCULAR VOLUME 102 FL (80-99); PLATELET COUNT 137 K/UL (150-450); RED BLOOD COUNT 2.02 M/UL (4.20-5.40); RED CELL DISTRIBUTION WIDTH 16.5 % (11.6-14.8); WHITE BLOOD COUNT 3.3 K/UL (4.8-10.8)
[2020-03-02 07:11] LABS: AMMONIA 68 umol/L (11-32)
[2020-03-02 07:32] LABS: % IRON SATURATION 17 % (15-50); IRON 33 ug/dL (50-175); TOTAL IRON BINDING CAPACITY 194 ug/dL (250-450)
--- NOTE | 2020-03-02 10:15 | General Progress Note ---
Assessment/Plan Assessment/Plan: macrocytic anemia elevated LFTS cirrhosis cellulitis elevated Ammonia levels abd us>> reviewed add lactulose and Xifaxan fu stool ob GI procedures if needed abx per id hepatitis panel will fu Subjective Allergies: Coded Allergies: No Known Allergies (Unverified , 02/29/20) Objective Last 24 Hour Vital Signs Date Time Temp Pulse Resp B/P (MAP) Pulse Ox O2 Delivery O2 Flow Rate FiO2 03/02/20 08:00 98.0 75 18 107/59 (75) 95 03/02/20 04:00 98.2 74 18 96/63 (74) 93 03/02/20 00:00 98.6 72 20 92/57 (69) 95 03/01/20 21:00 Nasal Cannula 2.0 03/01/20 20:07 98.5 03/01/20 20:00 99.5 83 20 107/60 (76) 93 03/01/20 16:00 98.1 83 20 100/52 (68) 93 03/01/20 12:00 98.1 81 20 115/53 (73) 96 Intake and Output 03/01/20 03/02/20 19:00 07:00 Intake Total 635 ml 631.000 ml Balance 635 ml 631.000 ml Intake Oral 360 ml IV Total 275 ml 281.000 ml Other 350 ml # Voids 2 2 # Bowel Movements 1 Laboratory Tests 03/01/20 13:45: Reticulocyte Count 0.9, Ferritin 792H, Vitamin B12 Level 1784H 03/01/20 14:30: Stool Occult Blood [Pending] 03/02/20 05:50: White Blood Count 3.3L, Red Blood Count 2.02L, Hemoglobin 7.1L, Hematocrit 20.5L , Mean Corpuscular Volume 102H, Mean Corpuscular Hemoglobin 34.9H, Mean Corpuscular Hemoglobin Concent 34.4, Red Cell Distribution Width 16.5H, Platelet Count 137L, Mean Platelet Volume 6.2L, Neutrophils (%) (Auto) , Lymphocytes (%) (Auto) , Monocytes (%) (Auto) , Eosinophils (%) (Auto) , Basophils (%) (Auto) , Neutrophils % (Manual) [Pending], Lymphocytes % (Manual) [Pending], Platelet Estimate [Pending], Platelet Morphology [Pending], Prothrombin Time 15.7H, Prothromb Time International Ratio 1.5H, Sodium Level 140, Potassium Level 3.3L, Chloride Level 106, Carbon Dioxide Level 25, Anion Gap 9, Blood Urea Nitrogen 6L, Creatinine 0.9, Estimat Glomerular Filtration Rate > 60, Glucose Level 99, Calcium Level 7.5L, Iron Level 33L, Total Iron Binding Capacity 194L, Percent Iron Saturation 17, Unsaturated Iron Binding 161 , Total Bilirubin 0.8, Aspartate Amino Transf (AST/SGOT) 53H, Alanine Aminotransferase (ALT/SGPT) 26, Alkaline Phosphatase 125H, Ammonia 68H, Total Protein 7.7, Albumin 2.0L, Globulin 5.7, Albumin/Globulin Ratio 0.4L, Folate 15.4, Hepatitis A IgM Antibody [Pending], Hepatitis B Surface Antigen [Pending] , Hepatitis B Core IgM Antibody [Pending], Hepatitis C Antibody [Pending], HIV ( 1&2) Antibody Rapid Negative Height (Feet): 5 Height (Inches): 1.00 Weight (Pounds): 289 General Appearance: alert EENT: normal ENT inspection Neck: supple Cardiovascular: normal rate Respiratory/Chest: decreased breath sounds Abdomen: normal bowel sounds, non tender, soft Extremities: non-tender Tam Spicer MD Mar 02, 2020 10:15
--- NOTE | 2020-03-02 11:39 | Hematology/Onc Progress Note ---
Assessment/Plan Assessment/Plan Assessment and Recs # Pancytopenia -- multiple etiologies could be related to underlying liver disease, medication-induced, infection versus viral syndrome versus underlying bone marrow cause, in this case, has severe liver disease and cirrhosis --> peripheral smear has been ordered and does not show significant abnormalities and none noted --> Medications have been reviewed --> Continue to monitor for improvement, trend cbc --> Hep panel and HIV have been ordered --> US abd ordered to r/o cirrhosis and hepatosplenomegaly ->CIRRHOSIS IS NOTED , LARGE SPLEEN --> reverse isolation if ANC is <2000 --> Give neupogen if ANC <1000 --> Transfuse if hgb <7, with 1 unit prbc --> anemia panel ordered as well-->CW acd --> hgb trend 7-->7.1 # Cellulitis of the lower extremitiies --> continue abx as needed as per id --> Started on IV antibiotics --> as per surg recs, wound care # Elevated LFTS The timing of this note does not necessarily reflect the time of the patient was seen. Greatly appreciate consultation. Subjective HEENT: Denies: no symptoms, eye pain, blurred vision, tearing, double vision, ear pain, ear discharge, nose pain, nose congestion, throat pain, throat swelling, mouth pain, mouth swelling, other Cardiovascular: Denies: no symptoms, chest pain, edema, irregular heart rate, lightheadedness, palpitations, syncope, other Respiratory: Denies: no symptoms, cough, shortness of breath, SOB with excertion, SOB at rest, sputum, wheezing, other Gastrointestinal/Abdominal: Denies: no symptoms, abdomen distended, abdominal pain, black stools, tarry stools, blood in stool, constipated, diarrhea, difficulty swallowing, nausea, poor appetite, poor fluid intake, rectal bleeding , vomiting, other Genitourinary: Denies: no symptoms, burning, discharge, frequency, flank pain, hematuria, incontinence, pain, urgency, other Neurologic/Psychiatric: Denies: no symptoms, anxiety, depressed, emotional problems, headache, numbness, paresthesia, pre-existing deficit, seizure, tingling, tremors, weakness, other Endocrine: Denies: no symptoms, excessive sweating, flushing, intolerance to cold, intolerance to heat, increased hunger, increased thirst, increased urine, unexplained weight gain, unexplained weight loss, other Hematologic/Lymphatic: Denies: no symptoms, anemia, easy bleeding, easy bruising, adenopathy, other Allergies: Coded Allergies: No Known Allergies (Unverified , 02/29/20) Subjective 03/02 no events, no bleeding, hgb 7.1, no hemolysis Objective Objective Current Medications Medications (Trade) Dose Ordered Sig/Dolores Route PRN Reason Start Time Stop Time Status Last Admin Dose Admin Acetaminophen (Tylenol) 650 mg Q4H PRN ORAL Mild Pain (Pain Scale 1-3) 02/29/20 20:00 03/30/20 19:59 03/01/20 19:37 Diphenhydramine HCl (Benadryl) 25 mg Q4H PRN ORAL moderate itching 02/29/20 20:00 03/30/20 19:59 Diphenhydramine HCl (Benadryl) 50 mg Q4H PRN ORAL SEVERE ITCHING 02/29/20 20:00 03/30/20 19:59 Lactulose (Cephulac) 10 gm THREE TIMES A DAY ORAL 03/02/20 13:00 04/01/20 12:59 Morphine Sulfate (Morphine Sulfate) 2 mg Q4H PRN IVP For Pain 4-03/01/20 20:24 03/08/20 20:23 03/01/20 20:48 Phytonadione 1 mg/ Dextrose 55.5 ml @ 222 mls/hr ONCE ONCE IVPB 03/02/20 12:00 03/02/20 12:14 Potassium Chloride (K-Dur) 20 meq ONCE ORAL 03/02/20 10:15 03/02/20 12:00 Rifaximin (Xifaxan) 550 mg EVERY 12 HOURS ORAL 03/02/20 21:00 03/09/20 20:59 Vancomycin HCl (Vanco rx to dose) 1 ea DAILY PRN MISC Per rx protocol 03/01/20 11:00 03/31/20 10:59 Vancomycin HCl 1 gm/Dextrose 275 ml @ 183.708 mls/hr Q12H IVPB 03/01/20 13:00 03/06/20 12:59 03/02/20 01:21 Last 24 Hour Vital Signs Date Time Temp Pulse Resp B/P (MAP) Pulse Ox O2 Delivery O2 Flow Rate FiO2 03/02/20 08:00 98.0 75 18 107/59 (75) 95 03/02/20 04:00 98.2 74 18 96/63 (74) 93 03/02/20 00:00 98.6 72 20 92/57 (69) 95 03/01/20 21:00 Nasal Cannula 2.0 03/01/20 20:07 98.5 03/01/20 20:00 99.5 83 20 107/60 (76) 93 03/01/20 16:00 98.1 83 20 100/52 (68) 93 03/01/20 12:00 98.1 81 20 115/53 (73) 96 03/01/20 09:00 Nasal Cannula 2.0 03/01/20 08:00 98.4 83 20 101/49 (66) 93 03/01/20 04:20 98.1 90 20 107/44 (65) 94 03/01/20 00:00 98.6 72 20 92/57 (69) 95 02/29/20 20:36 97.3 80 20 103/53 (70) 96 02/29/20 20:32 Nasal Cannula 2.0 02/29/20 20:03 Nasal Cannula 2.0 02/29/20 20:02 Nasal Cannula 2.0 02/29/20 18:42 98.9 89 18 140/90 99 Room Air 02/29/20 18:34 99.0 86 18 135/90 99 Room Air 02/29/20 15:54 99.0 87 16 136/92 99 Room Air 02/29/20 15:40 99.0 89 16 136/92 (107) 99 Room Air Intake and Output 03/01/20 03/02/20 19:00 07:00 Intake Total 635 ml 631.000 ml Balance 635 ml 631.000 ml Intake Oral 360 ml IV Total 275 ml 281.000 ml Other 350 ml # Voids 2 2 # Bowel Movements 1 Labs Test 02/29/20 16:32 03/01/20 05:20 03/01/20 13:45 03/01/20 14:30 White Blood Count 8.2 K/UL (4.8-10.8) 6.5 K/UL (4.8-10.8) Red Blood Count 2.26 M/UL (4.20-5.40) 1.94 M/UL (4.20-5.40) Hemoglobin 7.9 G/DL (12.0-16.0) 7.0 G/DL (12.0-16.0) Hematocrit 24.1 % (37.0-47.0) 19.4 % (37.0-47.0) Mean Corpuscular Volume 107 FL (80-99) 100 FL (80-99) Mean Corpuscular Hemoglobin 35.1 PG (27.0-31.0) 36.0 PG (27.0-31.0) Mean Corpuscular Hemoglobin Concent 32.9 G/DL (32.0-36.0) 36.0 G/DL (32.0-36.0) Red Cell Distribution Width 16.0 % (11.6-14.8) 14.7 % (11.6-14.8) Platelet Count 155 K/UL (150-450) 136 K/UL (150-450) Mean Platelet Volume 7.2 FL (6.5-10.1) 6.2 FL (6.5-10.1) Neutrophils (%) (Auto) % (45.0-75.0) % (45.0-75.0) Lymphocytes (%) (Auto) % (20.0-45.0) % (20.0-45.0) Monocytes (%) (Auto) % (1.0-10.0) % (1.0-10.0) Eosinophils (%) (Auto) % (0.0-3.0) % (0.0-3.0) Basophils (%) (Auto) % (0.0-2.0) % (0.0-2.0) Differential Total Cells Counted 100 100 Neutrophils % (Manual) 77 % (45-75) 73 % (45-75) Lymphocytes % (Manual) 13 % (20-45) 13 % (20-45) Monocytes % (Manual) 7 % (1-10) 12 % (1-10) Eosinophils % (Manual) 3 % (0-3) 2 % (0-3) Basophils % (Manual) 0 % (0-2) 0 % (0-2) Band Neutrophils 0 % (0-8) 0 % (0-8) Nucleated Red Blood Cells 10 /100 WBC Platelet Estimate Adequate Decreased Platelet Morphology Normal Normal Hypochromasia 2+ 3+ Anisocytosis 1+ 1+ Macrocytosis 1+ Urine Color Yellow Urine Appearance Clear Urine pH 7 (4.5-8.0) Urine Specific [place] 1.010 (1.005-1.035) Urine Protein 2+ (NEGATIVE) Urine Glucose (UA) Negative (NEGATIVE) Urine Ketones 1+ (NEGATIVE) Urine Blood 1+ (NEGATIVE) Urine Nitrite Negative (NEGATIVE) Urine Bilirubin 2+ (NEGATIVE) Urine Ictotest Negative (NEGATIVE) Urine Urobilinogen 12 MG/DL (0.0-1.0) Urine Leukocyte Esterase 1+ (NEGATIVE) Urine RBC 2-4 /HPF (0 - 2) Urine WBC 5-10 /HPF (0 - 2) Urine Squamous Epithelial Cells Moderate /LPF (NONE/OCC) Urine Bacteria Few /HPF (NONE) Sodium Level 139 MMOL/L (136-145) 142 MMOL/L (136-145) Potassium Level 3.7 MMOL/L (3.5-5.1) 3.6 MMOL/L (3.5-5.1) Chloride Level 105 MMOL/L (98-107) 108 MMOL/L (98-107) Carbon Dioxide Level 28 MMOL/L (21-32) 25 MMOL/L (21-32) Anion Gap 6 mmol/L (5-15) 9 mmol/L (5-15) Blood Urea Nitrogen 5 mg/dL (7-18) 5 mg/dL (7-18) Creatinine 0.7 MG/DL (0.55-1.30) 0.9 MG/DL (0.55-1.30) Estimat Glomerular Filtration Rate > 60 mL/min (>60) > 60 mL/min (>60) Glucose Level 97 MG/DL (74-106) 106 MG/DL (74-106) Lactic Acid Level 1.80 mmol/L (0.4-2.0) Calcium Level 8.6 MG/DL (8.5-10.1) 8.1 MG/DL (8.5-10.1) Total Bilirubin 1.1 MG/DL (0.2-1.0) Direct Bilirubin 0.5 MG/DL (0.0-0.3) Aspartate Amino Transf (AST/SGOT) 48 U/L (15-37) Alanine Aminotransferase (ALT/SGPT) 21 U/L (12-78) Alkaline Phosphatase 137 U/L (46-116) Total Creatine Kinase 244 U/L (26-308) Creatine Kinase MB 5.2 NG/ML (0.0-3.6) Creatine Kinase MB Relative Index 2.1 Troponin I 0.015 ng/mL (0.000-0.056) Pro-B-Type Natriuretic Peptide 968 pg/mL (0-125) Total Protein 7.7 G/DL (6.4-8.2) Albumin 2.0 G/DL (3.4-5.0) Globulin 5.7 g/dL Albumin/Globulin Ratio 0.4 (1.0-2.7) Lipase 99 U/L (73-393) Spherocytes 2+ Reticulocyte Count 0.9 % (0.5-2.0) Ferritin 792 NG/ML (8-388) Vitamin B12 Level 1784 PG/ML (193-986) Test 03/02/20 05:50 White Blood Count 3.3 K/UL (4.8-10.8) Red Blood Count 2.02 M/UL (4.20-5.40) Hemoglobin 7.1 G/DL (12.0-16.0) Hematocrit 20.5 % (37.0-47.0) Mean Corpuscular Volume 102 FL (80-99) Mean Corpuscular Hemoglobin 34.9 PG (27.0-31.0) Mean Corpuscular Hemoglobin Concent 34.4 G/DL (32.0-36.0) Red Cell Distribution Width 16.5 % (11.6-14.8) Platelet Count 137 K/UL (150-450) Mean Platelet Volume 6.2 FL (6.5-10.1) Neutrophils (%) (Auto) % (45.0-75.0) Lymphocytes (%) (Auto) % (20.0-45.0) Monocytes (%) (Auto) % (1.0-10.0) Eosinophils (%) (Auto) % (0.0-3.0) Basophils (%) (Auto) % (0.0-2.0) Differential Total Cells Counted 100 Neutrophils % (Manual) 73 % (45-75) Lymphocytes % (Manual) 14 % (20-45) Monocytes % (Manual) 10 % (1-10) Eosinophils % (Manual) 2 % (0-3) Basophils % (Manual) 0 % (0-2) Band Neutrophils 1 % (0-8) Nucleated Red Blood Cells 3 /100 WBC Platelet Estimate Decreased Platelet Morphology Normal Hypochromasia 3+ Macrocytosis 1+ Spherocytes 2+ Prothrombin Time 15.7 SEC (9.30-11.50) Prothromb Time International Ratio 1.5 (0.9-1.1) Sodium Level 140 MMOL/L (136-145) Potassium Level 3.3 MMOL/L (3.5-5.1) Chloride Level 106 MMOL/L (98-107) Carbon Dioxide Level 25 MMOL/L (21-32) Anion Gap 9 mmol/L (5-15) Blood Urea Nitrogen 6 mg/dL (7-18) Creatinine 0.9 MG/DL (0.55-1.30) Estimat Glomerular Filtration Rate > 60 mL/min (>60) Glucose Level 99 MG/DL (74-106) Calcium Level 7.5 MG/DL (8.5-10.1) Iron Level 33 ug/dL (50-175) Total Iron Binding Capacity 194 ug/dL (250-450) Percent Iron Saturation 17 % (15-50) Unsaturated Iron Binding 161 ug/dL (112-346) Total Bilirubin 0.8 MG/DL (0.2-1.0) Aspartate Amino Transf (AST/SGOT) 53 U/L (15-37) Alanine Aminotransferase (ALT/SGPT) 26 U/L (12-78) Alkaline Phosphatase 125 U/L (46-116) Ammonia 68 umol/L (11-32) Total Protein 7.7 G/DL (6.4-8.2) Albumin 2.0 G/DL (3.4-5.0) Globulin 5.7 g/dL Albumin/Globulin Ratio 0.4 (1.0-2.7) Folate 15.4 NG/ML (8.6-58.9) HIV (1&2) Antibody Rapid Negative (NEGATIVE) Height (Feet): 5 Height (Inches): 1.00 Weight (Pounds): 289 Objective Physical Exam: Vitals: reviewed General: NAD HEENT: nc, at Neck: supple Chest: clear breath sounds bilaterally Cardiovascular: RRR, no s3, s4 EXT ++ Significant edema and erythema bilateral lower extremity, patient also has blistering on both feet given the edema, whittish overcrust/crusting++ Neurologic: alert, oriented x3 Skin: other - As above Brett Mcclain MD Mar 02, 2020 11:39
[2020-03-02] MEDS ORDERED: Phytonadione 1 MG in D5W 55 ML IVPB ONE (12:00)
--- NOTE | 2020-03-02 13:24 | Infectious Diseases Prog Note ---
Assessment/Plan Assessment/Plan IMPRESSION: 1. Bilateral leg cellulitis, seems to be purulent. 2. Anemia. 3. Slight elevation in transaminase level. 4. Thrombocytopenia. 5. Homeless 6. Morbid obesity. 7. Cirrhosis RECOMMENDATION: We will continue with IV vancomycin. Add IV Cefepime Will f/u wound culture. Subjective ROS Limited/Unobtainable: No Constitutional: Reports: no symptoms, other - feels better Respiratory: Reports: no symptoms Gastrointestinal/Abdominal: Reports: no symptoms Genitourinary: Reports: no symptoms Allergies: Coded Allergies: No Known Allergies (Unverified , 02/29/20) Objective Vital Signs Last 24 Hour Vital Signs Date Time Temp Pulse Resp B/P (MAP) Pulse Ox O2 Delivery O2 Flow Rate FiO2 03/02/20 08:00 98.0 75 18 107/59 (75) 95 03/02/20 04:00 98.2 74 18 96/63 (74) 93 03/02/20 00:00 98.6 72 20 92/57 (69) 95 03/01/20 21:00 Nasal Cannula 2.0 03/01/20 20:07 98.5 03/01/20 20:00 99.5 83 20 107/60 (76) 93 03/01/20 16:00 98.1 83 20 100/52 (68) 93 Height (Feet): 5 Height (Inches): 1.00 Weight (Pounds): 289 General Appearance: no acute distress HEENT: mucous membranes moist Respiratory/Chest: lungs clear Cardiovascular: normal rate Abdomen: soft, non tender, other - obese Extremities: other - edema of legs Skin: other - chronic skin changes of legs, pedal ulcerated blister Neurologic/Psychiatric: alert, oriented x 3, responsive Microbiology Date/Time Source Procedure Growth Status 02/29/20 16:32 Blood Blood Culture - Preliminary NO GROWTH AFTER 24 HOURS Resulted 02/29/20 16:17 Blood Blood Culture - Preliminary NO GROWTH AFTER 24 HOURS Resulted 03/01/20 11:15 Foot Left Gram Stain Pending Resulted 03/01/20 11:15 Foot Left Wound Culture - Preliminary NO GROWTH Resulted 03/01/20 11:15 Foot Right Gram Stain Pending Resulted 03/01/20 11:15 Wound Culture - Preliminary Gram Negative Bacillus 1 Resulted Laboratory Tests Test 03/01/20 13:45 4/15/20 14:30 03/02/20 05:50 Reticulocyte Count 0.9 % (0.5-2.0) Ferritin 792 NG/ML (8-388) H Vitamin B12 Level 1784 PG/ML (193-986) H Stool Occult Blood Negative (NEGATIVE) White Blood Count 3.3 K/UL (4.8-10.8) L Red Blood Count 2.02 M/UL (4.20-5.40) L Hemoglobin 7.1 G/DL (12.0-16.0) L Hematocrit 20.5 % (37.0-47.0) L Mean Corpuscular Volume 102 FL (80-99) H Mean Corpuscular Hemoglobin 34.9 PG (27.0-31.0) H Mean Corpuscular Hemoglobin Concent 34.4 G/DL (32.0-36.0) Red Cell Distribution Width 16.5 % (11.6-14.8) H Platelet Count 137 K/UL (150-450) L Mean Platelet Volume 6.2 FL (6.5-10.1) L Neutrophils (%) (Auto) % (45.0-75.0) Lymphocytes (%) (Auto) % (20.0-45.0) Monocytes (%) (Auto) % (1.0-10.0) Eosinophils (%) (Auto) % (0.0-3.0) Basophils (%) (Auto) % (0.0-2.0) Differential Total Cells Counted 100 Neutrophils % (Manual) 73 % (45-75) Lymphocytes % (Manual) 14 % (20-45) L Monocytes % (Manual) 10 % (1-10) Eosinophils % (Manual) 2 % (0-3) Basophils % (Manual) 0 % (0-2) Band Neutrophils 1 % (0-8) Nucleated Red Blood Cells 3 /100 WBC Platelet Estimate Decreased L Platelet Morphology Normal Hypochromasia 3+ Macrocytosis 1+ Spherocytes 2+ Prothrombin Time 15.7 SEC (9.30-11.50) H Prothromb Time International Ratio 1.5 (0.9-1.1) H Sodium Level 140 MMOL/L (136-145) Potassium Level 3.3 MMOL/L (3.5-5.1) L Chloride Level 106 MMOL/L (98-107) Carbon Dioxide Level 25 MMOL/L (21-32) Anion Gap 9 mmol/L (5-15) Blood Urea Nitrogen 6 mg/dL (7-18) L Creatinine 0.9 MG/DL (0.55-1.30) Estimat Glomerular Filtration Rate > 60 mL/min (>60) Glucose Level 99 MG/DL (74-106) Calcium Level 7.5 MG/DL (8.5-10.1) L Iron Level 33 ug/dL (50-175) L Total Iron Binding Capacity 194 ug/dL (250-450) L Percent Iron Saturation 17 % (15-50) Unsaturated Iron Binding 161 ug/dL (112-346) Total Bilirubin 0.8 MG/DL (0.2-1.0) Aspartate Amino Transf (AST/SGOT) 53 U/L (15-37) H Alanine Aminotransferase (ALT/SGPT) 26 U/L (12-78) Alkaline Phosphatase 125 U/L (46-116) H Ammonia 68 umol/L (11-32) H Total Protein 7.7 G/DL (6.4-8.2) Albumin 2.0 G/DL (3.4-5.0) L Globulin 5.7 g/dL Albumin/Globulin Ratio 0.4 (1.0-2.7) L Folate 15.4 NG/ML (8.6-58.9) Hepatitis A IgM Antibody Pending Hepatitis B Surface Antigen Pending Hepatitis B Core IgM Antibody Pending Hepatitis C Antibody Pending HIV (1&2) Antibody Rapid Negative (NEGATIVE) Current Medications Medications (Trade) Dose Ordered Sig/Dolores Route PRN Reason Start Time Stop Time Status Last Admin Dose Admin Acetaminophen (Tylenol) 650 mg Q4H PRN ORAL Mild Pain (Pain Scale 1-3) 02/29/20 20:00 03/30/20 19:59 03/01/20 19:37 Diphenhydramine HCl (Benadryl) 25 mg Q4H PRN ORAL moderate itching 02/29/20 20:00 03/30/20 19:59 Diphenhydramine HCl (Benadryl) 50 mg Q4H PRN ORAL SEVERE ITCHING 02/29/20 20:00 03/30/20 19:59 Lactulose (Cephulac) 10 gm THREE TIMES A DAY ORAL 03/02/20 13:00 04/01/20 12:59 Morphine Sulfate (Morphine Sulfate) 2 mg Q4H PRN IVP For Pain 4-10 03/01/20 20:24 03/08/20 20:23 03/01/20 20:48 Rifaximin (Xifaxan) 550 mg EVERY 12 HOURS ORAL 03/02/20 21:00 03/09/20 20:59 Vancomycin HCl (Vanco rx to dose) 1 ea DAILY PRN MISC Per rx protocol 03/01/20 11:00 03/31/20 10:59 Vancomycin HCl 1 gm/Dextrose 275 ml @ 183.708 mls/hr Q12H IVPB 03/01/20 13:00 03/06/20 12:59 03/02/20 01:21 Jonathon Shah MD Mar 02, 2020 13:24
[2020-03-02] MEDS ORDERED: Cefepime HCl 1 GM in D5W 55 ML IVPB ONE (13:45)
[2020-03-02] MEDS: Lactulose 10gm/15ml UDC ORAL SCH ×2 (14:19→18:11)
--- NOTE | 2020-03-02 14:34 | Surgery Progress Note ---
Surgery Progress Note Subjective Additional Comments gunjan cute events comfortable appearing US noted labs reviewed Objective Last 24 Hour Vital Signs Date Time Temp Pulse Resp B/P (MAP) Pulse Ox O2 Delivery O2 Flow Rate FiO2 03/02/20 08:00 98.0 75 18 107/59 (75) 95 03/02/20 04:00 98.2 74 18 96/63 (74) 93 03/02/20 00:00 98.6 72 20 92/57 (69) 95 03/01/20 21:00 Nasal Cannula 2.0 03/01/20 20:07 98.5 03/01/20 20:00 99.5 83 20 107/60 (76) 93 03/01/20 16:00 98.1 83 20 100/52 (68) 93 I&O Intake and Output 03/01/20 03/02/20 19:00 07:00 Intake Total 635 ml 631.000 ml Balance 635 ml 631.000 ml Intake Oral 360 ml IV Total 275 ml 281.000 ml Other 350 ml # Voids 2 2 # Bowel Movements 1 Dressing: dry Wound: clean Cardiovascular: RSR Respiratory: clear Abdomen: soft, flat, non-tender, present bowel sounds Extremities: edema, no tenderness, no cyanosis, other Laboratory Tests Test 03/02/20 05:50 White Blood Count 3.3 K/UL (4.8-10.8) L Red Blood Count 2.02 M/UL (4.20-5.40) L Hemoglobin 7.1 G/DL (12.0-16.0) L Hematocrit 20.5 % (37.0-47.0) L Mean Corpuscular Volume 102 FL (80-99) H Mean Corpuscular Hemoglobin 34.9 PG (27.0-31.0) H Mean Corpuscular Hemoglobin Concent 34.4 G/DL (32.0-36.0) Red Cell Distribution Width 16.5 % (11.6-14.8) H Platelet Count 137 K/UL (150-450) L Mean Platelet Volume 6.2 FL (6.5-10.1) L Neutrophils (%) (Auto) % (45.0-75.0) Lymphocytes (%) (Auto) % (20.0-45.0) Monocytes (%) (Auto) % (1.0-10.0) Eosinophils (%) (Auto) % (0.0-3.0) Basophils (%) (Auto) % (0.0-2.0) Differential Total Cells Counted 100 Neutrophils % (Manual) 73 % (45-75) Lymphocytes % (Manual) 14 % (20-45) L Monocytes % (Manual) 10 % (1-10) Eosinophils % (Manual) 2 % (0-3) Basophils % (Manual) 0 % (0-2) Band Neutrophils 1 % (0-8) Nucleated Red Blood Cells 3 /100 WBC Platelet Estimate Decreased L Platelet Morphology Normal Hypochromasia 3+ Macrocytosis 1+ Spherocytes 2+ Prothrombin Time 15.7 SEC (9.30-11.50) H Prothromb Time International Ratio 1.5 (0.9-1.1) H Sodium Level 140 MMOL/L (136-145) Potassium Level 3.3 MMOL/L (3.5-5.1) L Chloride Level 106 MMOL/L (98-107) Carbon Dioxide Level 25 MMOL/L (21-32) Anion Gap 9 mmol/L (5-15) Blood Urea Nitrogen 6 mg/dL (7-18) L Creatinine 0.9 MG/DL (0.55-1.30) Estimat Glomerular Filtration Rate > 60 mL/min (>60) Glucose Level 99 MG/DL (74-106) Calcium Level 7.5 MG/DL (8.5-10.1) L Iron Level 33 ug/dL (50-175) L Total Iron Binding Capacity 194 ug/dL (250-450) L Percent Iron Saturation 17 % (15-50) Unsaturated Iron Binding 161 ug/dL (112-346) Total Bilirubin 0.8 MG/DL (0.2-1.0) Aspartate Amino Transf (AST/SGOT) 53 U/L (15-37) H Alanine Aminotransferase (ALT/SGPT) 26 U/L (12-78) Alkaline Phosphatase 125 U/L (46-116) H Ammonia 68 umol/L (11-32) H Total Protein 7.7 G/DL (6.4-8.2) Albumin 2.0 G/DL (3.4-5.0) L Globulin 5.7 g/dL Albumin/Globulin Ratio 0.4 (1.0-2.7) L Folate 15.4 NG/ML (8.6-58.9) Hepatitis A IgM Antibody Pending Hepatitis B Surface Antigen Pending Hepatitis B Core IgM Antibody Pending Hepatitis C Antibody Pending HIV (1&2) Antibody Rapid Negative (NEGATIVE) Plan Problems: (1) Cellulitis Assessment & Plan: bilateral lower extremity cellulitis / edema chronic venous status changes dermatitis no abscess no purulent drainage ulcerations forming. keep lower extremity elevated while in bed apply skin protectant / moisturizing cream daily okay to shower okay to wrap soft after cream abx as per ID for cellulitis okay for diet duplex ordered trend labs will follow with recs thank you No evidence of deep venous thrombosis involving the visualized veins of the RIGHT lower extremity. refused eval of left Theron Sotomayor Mar 02, 2020 14:34
[2020-03-02] MEDS: Morphine Sulfate 2mg/ml Inj(IV/IM USE ONLY) IVP PRN (16:11)
[2020-03-02] MEDS ORDERED: LORazepam 1mg tab ORAL SCH (18:00)
[2020-03-02] MEDS ORDERED: LORazepam 1mg tab ORAL PRN (18:15)
--- NOTE | 2020-03-02 20:35 | General Progress Note ---
Assessment/Plan Problem List: (1) Cellulitis ICD Codes: L03.90 - Cellulitis, unspecified SNOMED: [id number] Qualifiers: Qualified Codes: L03.119 - Cellulitis of unspecified part of limb Assessment/Plan: bilat cellulitis leg pain afebrile abx per id Subjective ROS Limited/Unobtainable: Yes Allergies: Coded Allergies: No Known Allergies (Unverified , 02/29/20) Objective Last 24 Hour Vital Signs Date Time Temp Pulse Resp B/P (MAP) Pulse Ox O2 Delivery O2 Flow Rate FiO2 03/02/20 18:54 101.5 03/02/20 18:50 101.5 77 18 115/66 (82) 92 03/02/20 18:16 101.8 78 18 116/71 (86) 92 03/02/20 16:00 98.5 80 20 104/60 (75) 91 03/02/20 12:00 100.4 82 17 108/52 (70) 95 03/02/20 09:00 Nasal Cannula 2.0 03/02/20 08:00 98.0 75 18 107/59 (75) 95 03/02/20 04:00 98.2 74 18 96/63 (74) 93 03/02/20 00:00 98.6 72 20 92/57 (69) 95 03/01/20 21:00 Nasal Cannula 2.0 Intake and Output 03/01/20 03/02/20 19:00 07:00 Intake Total 635 ml 631.000 ml Balance 635 ml 631.000 ml Intake Oral 360 ml IV Total 275 ml 281.000 ml Other 350 ml # Voids 2 2 # Bowel Movements 1 Laboratory Tests 03/02/20 05:50: White Blood Count 3.3L, Red Blood Count 2.02L, Hemoglobin 7.1L, Hematocrit 20.5L , Mean Corpuscular Volume 102H, Mean Corpuscular Hemoglobin 34.9H, Mean Corpuscular Hemoglobin Concent 34.4, Red Cell Distribution Width 16.5H, Platelet Count 137L, Mean Platelet Volume 6.2L, Neutrophils (%) (Auto) , Lymphocytes (%) (Auto) , Monocytes (%) (Auto) , Eosinophils (%) (Auto) , Basophils (%) (Auto) , Differential Total Cells Counted 100, Neutrophils % ( Manual) 73, Lymphocytes % (Manual) 14L, Monocytes % (Manual) 10, Eosinophils % ( Manual) 2, Basophils % (Manual) 0, Band Neutrophils 1, Nucleated Red Blood Cells 3, Platelet Estimate DecreasedL, Platelet Morphology Normal, Hypochromasia 3+, Macrocytosis 1+, Spherocytes 2+, Prothrombin Time 15.7H, Prothromb Time International Ratio 1.5H, Sodium Level 140, Potassium Level 3.3L , Chloride Level 106, Carbon Dioxide Level 25, Anion Gap 9, Blood Urea Nitrogen 6L, Creatinine 0.9, Estimat Glomerular Filtration Rate > 60, Glucose Level 99, Calcium Level 7.5L, Iron Level 33L, Total Iron Binding Capacity 194L, Percent Iron Saturation 17, Unsaturated Iron Binding 161, Total Bilirubin 0.8, Aspartate Amino Transf (AST/SGOT) 53H, Alanine Aminotransferase (ALT/SGPT) 26, Alkaline Phosphatase 125H, Ammonia 68H, Total Protein 7.7, Albumin 2.0L, Globulin 5.7, Albumin/Globulin Ratio 0.4L, Folate 15.4, Hepatitis A IgM Antibody [Pending], Hepatitis B Surface Antigen [Pending], Hepatitis B Core IgM Antibody [Pending], Hepatitis C Antibody [Pending], HIV (1&2) Antibody Rapid Negative Height (Feet): 5 Height (Inches): 1.00 Weight (Pounds): 289 Celso Moreno MD Mar 02, 2020 20:35
[2020-03-03] VITALS: BP 105/49
[2020-03-03] MEDS ORDERED: Cefepime HCl 1 GM in D5W 55 ML IVPB SCH (02:00)
[2020-03-03 04:00] VITALS: BP 127/72
[2020-03-03 06:36] LABS: BASOPHILS % (AUTO) 1.3 % (0.0-2.0); EOSINOPHILS % (AUTO) 2.6 % (0.0-3.0); HEMATOCRIT 24.6 % (37.0-47.0); MEAN CORPUSCULAR VOLUME 100 FL (80-99); MONOCYTES % (AUTO) 12.7 % (1.0-10.0); NEUTROPHILS % (AUTO) 61.4 % (45.0-75.0); PLATELET COUNT 132 K/UL (150-450); RED BLOOD COUNT 2.47 M/UL (4.20-5.40); RED CELL DISTRIBUTION WIDTH 17.1 % (11.6-14.8); WHITE BLOOD COUNT 3.5 K/UL (4.8-10.8)
[2020-03-03 06:58] LABS: HEMOGLOBIN 8.4 G/DL (12.0-16.0)
[2020-03-03 07:23] LABS: ALANINE AMINOTRANSFERASE 26 U/L (12-78); ALBUMIN/GLOBULIN RATIO 0.3 (1.0-2.7); ALKALINE PHOSPHATASE 120 U/L (46-116); ANION GAP 9 mmol/L (5-15); ASPARTATE AMINO TRANSFERASE 52 U/L (15-37); BILIRUBIN,TOTAL 0.8 MG/DL (0.2-1.0); BLOOD UREA NITROGEN 7 mg/dL (7-18); CARBON DIOXIDE 26 MMOL/L (21-32); CHLORIDE 104 MMOL/L (98-107); CREATININE 0.8 MG/DL (0.55-1.30); POTASSIUM 3.5 MMOL/L (3.5-5.1); SODIUM 138 MMOL/L (136-145)
[2020-03-03 08:00] VITALS: BP 119/69
--- NOTE | 2020-03-03 08:03 | General Progress Note ---
Assessment/Plan Assessment/Plan: macrocytic anemia elevated LFTS cirrhosis cellulitis elevated Ammonia levels abd us>> reviewed lactulose and Xifaxan fu stool ob>>>neg s/p one unit PRBC GI procedures if needed abx per id hepatitis panel>>>>>positive for hep C>>> needs out patient fu will fu Subjective Allergies: Coded Allergies: No Known Allergies (Unverified , 02/29/20) Objective Last 24 Hour Vital Signs Date Time Temp Pulse Resp B/P (MAP) Pulse Ox O2 Delivery O2 Flow Rate FiO2 03/03/20 04:00 97.5 71 20 127/72 (90) 97 03/03/20 00:00 97.5 72 19 105/49 (67) 97 03/02/20 21:00 Nasal Cannula 2.0 03/02/20 20:00 98.4 77 21 118/55 (76) 91 03/02/20 18:54 101.5 03/02/20 18:50 101.5 77 18 115/66 (82) 92 03/02/20 18:16 101.8 78 18 116/71 (86) 92 03/02/20 16:00 98.5 80 20 104/60 (75) 91 03/02/20 12:00 100.4 82 17 108/52 (70) 95 03/02/20 09:00 Nasal Cannula 2.0 Intake and Output 03/02/20 03/03/20 19:00 07:00 Intake Total 260 ml 300 ml Balance 260 ml 300 ml Intake Oral 260 ml 300 ml # Voids 3 1 Laboratory Tests 03/03/20 00:15: Vancomycin Level Trough 27.2H 03/03/20 05:35: White Blood Count 3.5L, Red Blood Count 2.47L, Hemoglobin 8.4L, Hematocrit 24.6L , Mean Corpuscular Volume 100H, Mean Corpuscular Hemoglobin 34.0H, Mean Corpuscular Hemoglobin Concent 34.1, Red Cell Distribution Width 17.1H, Platelet Count 132L, Mean Platelet Volume 5.4L, Neutrophils (%) (Auto) 61.4, Lymphocytes (%) (Auto) 22.0, Monocytes (%) (Auto) 12.7H, Eosinophils (%) (Auto) 2.6, Basophils (%) (Auto) 1.3, Sodium Level 138, Potassium Level 3.5, Chloride Level 104, Carbon Dioxide Level 26, Anion Gap 9, Blood Urea Nitrogen 7, Creatinine 0.8, Estimat Glomerular Filtration Rate > 60, Glucose Level 110H, Calcium Level 7.0L, Total Bilirubin 0.8, Aspartate Amino Transf (AST/SGOT) 52H, Alanine Aminotransferase (ALT/SGPT) 26, Alkaline Phosphatase 120H, Total Protein 7.8, Albumin 2.0L, Globulin 5.8, Albumin/Globulin Ratio 0.3L Height (Feet): 5 Height (Inches): 1.00 Weight (Pounds): 289 General Appearance: no apparent distress EENT: normal ENT inspection Neck: supple Cardiovascular: normal rate Respiratory/Chest: decreased breath sounds Abdomen: normal bowel sounds, non tender, soft Extremities: normal range of motion, non-tender Tam Spicer MD Mar 03, 2020 08:03
--- NOTE | 2020-03-03 08:44 | Consultation ---
DATE OF CONSULTATION: HISTORY OF PRESENT ILLNESS: The patient is a 59-year-old female with a history of depression and anxiety, who has been admitted to the hospital for medical stabilization. The patient is having history of cellulitis. The patient has been more emotional, depressed, and anxious today. The patient is denying any suicidal or homicidal ideation. PAST PSYCHIATRIC HISTORY: Anxiety, depression. PAST MEDICAL HISTORY: Significant for cellulitis. ALLERGIES: No known drug allergies. SUBSTANCE ABUSE HISTORY: No history of illicit drug use or alcohol. MENTAL STATUS EXAMINATION: Alert and oriented to time, self, place, situation. Mood is anxious. Affect is constricted. Congruent mood. Thought process is concrete. Thought content, no suicidal or homicidal ideation. Cognition is intact. Insight and judgment fair. ASSESSMENT: [place] I: Anxiety disorder. AXIS II: Deferred. AXIS III: As above. AXIS IV: Low. AXIS V: 20. PLAN: 1. We will continue Ativan p.r.n. 2. We will reassess and readjust the medications. Justice Manriquez M.D. DR: Jessenia JOB#: [id number] CC: ROMAN
[2020-03-03] MEDS: Lactulose 10gm/15ml UDC ORAL SCH ×3 (09:52→17:47)
[2020-03-03 12:00] VITALS: BP 114/67
--- NOTE | 2020-03-03 12:48 | Infectious Diseases Prog Note ---
Assessment/Plan Assessment/Plan IMPRESSION: 1. Bilateral leg cellulitis,Pseudomonas in culture 2. Anemia. 3. Slight elevation in transaminase level. 4. Thrombocytopenia. 5. Homeless 6. Morbid obesity. 7. Cirrhosis RECOMMENDATION: Discontinue with IV vancomycin & IV Cefepime Start on Meropenem Will f/u wound culture. Subjective ROS Limited/Unobtainable: Yes Constitutional: Reports: fever, other - Dj=[id number] Allergies: Coded Allergies: No Known Allergies (Unverified , 02/29/20) Objective Vital Signs Last 24 Hour Vital Signs Date Time Temp Pulse Resp B/P (MAP) Pulse Ox O2 Delivery O2 Flow Rate FiO2 03/03/20 04:00 97.5 71 20 127/72 (90) 97 03/03/20 00:00 97.5 72 19 105/49 (67) 97 03/02/20 21:00 Nasal Cannula 2.0 03/02/20 20:00 98.4 77 21 118/55 (76) 91 03/02/20 18:54 101.5 03/02/20 18:50 101.5 77 18 115/66 (82) 92 03/02/20 18:16 101.8 78 18 116/71 (86) 92 03/02/20 16:00 98.5 80 20 104/60 (75) 91 Height (Feet): 5 Height (Inches): 1.00 Weight (Pounds): 289 General Appearance: no acute distress HEENT: mucous membranes moist Respiratory/Chest: lungs clear Cardiovascular: normal rate Abdomen: soft, non tender Extremities: other - edema of legs Skin: other - ulcers on feet Neurologic/Psychiatric: other - sleeping Microbiology Date/Time Source Procedure Growth Status 02/29/20 16:32 Blood Blood Culture - Preliminary NO GROWTH AFTER 24 HOURS Resulted 02/29/20 16:17 Blood Blood Culture - Preliminary NO GROWTH AFTER 24 HOURS Resulted 02/29/20 16:50 Nasal Nares MRSA Culture - Final NO METHICILLIN RESISTANT STAPH AUREUS... Complete 03/01/20 11:15 Foot Left Gram Stain - Final Resulted 03/01/20 11:15 Foot Left Wound Culture - Preliminary NO GROWTH AFTER 48 HOURS Resulted 03/01/20 11:15 Foot Right Gram Stain - Final Resulted 03/01/20 11:15 Wound Culture - Preliminary Pseudomonas Aeruginosa Resulted 02/29/20 16:50 Rectum - Final NO CARBAPENEM-RESISTANT ENTEROBACTERI... Complete 02/29/20 16:50 Rectum VRE Culture - Final NO VANCOMYCIN RESISTANT ENTEROCOCCUS ... Complete Laboratory Tests Test 03/03/20 00:15 03/03/20 05:35 Vancomycin Level Trough 27.2 ug/mL (5.0-12.0) H White Blood Count 3.5 K/UL (4.8-10.8) L Red Blood Count 2.47 M/UL (4.20-5.40) L Hemoglobin 8.4 G/DL (12.0-16.0) L Hematocrit 24.6 % (37.0-47.0) L Mean Corpuscular Volume 100 FL (80-99) H Mean Corpuscular Hemoglobin 34.0 PG (27.0-31.0) H Mean Corpuscular Hemoglobin Concent 34.1 G/DL (32.0-36.0) Red Cell Distribution Width 17.1 % (11.6-14.8) H Platelet Count 132 K/UL (150-450) L Mean Platelet Volume 5.4 FL (6.5-10.1) L Neutrophils (%) (Auto) 61.4 % (45.0-75.0) Lymphocytes (%) (Auto) 22.0 % (20.0-45.0) Monocytes (%) (Auto) 12.7 % (1.0-10.0) H Eosinophils (%) (Auto) 2.6 % (0.0-3.0) Basophils (%) (Auto) 1.3 % (0.0-2.0) Sodium Level 138 MMOL/L (136-145) Potassium Level 3.5 MMOL/L (3.5-5.1) Chloride Level 104 MMOL/L (98-107) Carbon Dioxide Level 26 MMOL/L (21-32) Anion Gap 9 mmol/L (5-15) Blood Urea Nitrogen 7 mg/dL (7-18) Creatinine 0.8 MG/DL (0.55-1.30) Estimat Glomerular Filtration Rate > 60 mL/min (>60) Glucose Level 110 MG/DL (74-106) H Calcium Level 7.0 MG/DL (8.5-10.1) L Total Bilirubin 0.8 MG/DL (0.2-1.0) Aspartate Amino Transf (AST/SGOT) 52 U/L (15-37) H Alanine Aminotransferase (ALT/SGPT) 26 U/L (12-78) Alkaline Phosphatase 120 U/L (46-116) H Total Protein 7.8 G/DL (6.4-8.2) Albumin 2.0 G/DL (3.4-5.0) L Globulin 5.8 g/dL Albumin/Globulin Ratio 0.3 (1.0-2.7) L Current Medications Medications (Trade) Dose Ordered Sig/Dolores Route PRN Reason Start Time Stop Time Status Last Admin Dose Admin Acetaminophen (Tylenol) 650 mg Q4H PRN ORAL Mild Pain (Pain Scale 1-3) 02/29/20 20:00 03/30/20 19:59 03/02/20 18:24 Acetaminophen (Tylenol) 650 mg Q4H PRN ORAL Temp >100 03/02/20 22:30 04/01/20 22:29 Cefepime HCl 1 gm/ Dextrose 55 ml @ 110 mls/hr Q24H IVPB 03/03/20 02:00 03/10/20 01:59 03/03/20 03:00 Diphenhydramine HCl (Benadryl) 25 mg Q4H PRN ORAL moderate itching 02/29/20 20:00 03/30/20 19:59 Diphenhydramine HCl (Benadryl) 50 mg Q4H PRN ORAL SEVERE ITCHING 02/29/20 20:00 03/30/20 19:59 Lactulose (Cephulac) 10 gm THREE TIMES A DAY ORAL 03/02/20 13:00 04/01/20 12:59 03/03/20 09:52 Lorazepam (Ativan) 2 mg Q6H PRN ORAL Anxiety 03/02/20 18:15 03/09/20 18:14 03/02/20 21:01 Mirtazapine (Remeron) 7.5 mg BEDTIME PRN ORAL SLEEP 03/02/20 18:00 05/31/20 17:59 Morphine Sulfate (Morphine Sulfate) 2 mg Q4H PRN IVP For Pain 4-10 03/01/20 20:24 03/08/20 20:23 03/02/20 16:11 Rifaximin (Xifaxan) 550 mg EVERY 12 HOURS ORAL 03/02/20:00 03/09/20 20:59 03/03/20 09:52 Vancomycin HCl (Vanco rx to dose) 1 ea DAILY PRN MISC Per rx protocol 03/01/20 11:00 03/31/20 10:59 Vancomycin HCl 1 gm/Dextrose 275 ml @ 183.708 mls/hr Q24H IVPB 03/03/20 16:00 03/08/20 15:59 Jonathon Shah MD Mar 03, 2020 12:48
--- NOTE | 2020-03-03 13:18 | Hematology/Onc Progress Note ---
Assessment/Plan Assessment/Plan Assessment and Recs # Pancytopenia -- multiple etiologies could be related to underlying liver disease, medication-induced, infection versus viral syndrome versus underlying bone marrow cause, in this case, has severe liver disease and cirrhosis --> peripheral smear has been ordered and does not show significant abnormalities and none noted --> Medications have been reviewed --> Continue to monitor for improvement, trend cbc --> Hep panel and HIV are both negative --> US abd ordered to r/o cirrhosis and hepatosplenomegaly ->CIRRHOSIS IS NOTED , LARGE SPLEEN --> reverse isolation if ANC is <2000 --> Give neupogen if ANC <1000 --> Transfuse if hgb <7, with 1 unit prbc --> anemia panel ordered as well-->CW acd --> hgb trend 7-->7.1-->8.4 --> abx: sameer/rifaximin # Cellulitis of the lower extremitiies --> continue abx as needed as per id --> Started on IV antibiotics --> as per surg recs, wound care # Elevated LFTS The timing of this note does not necessarily reflect the time of the patient was seen. Greatly appreciate consultation. Subjective Allergies: Coded Allergies: No Known Allergies (Unverified , 02/29/20) Subjective 03/02 no events, no bleeding, hgb 7.1, no hemolysis 03/03 s/p blood, hgb improved to 8.4, stool ob negtive, on abx Objective Objective Current Medications Medications (Trade) Dose Ordered Sig/Dolores Route PRN Reason Start Time Stop Time Status Last Admin Dose Admin Acetaminophen (Tylenol) 650 mg Q4H PRN ORAL Mild Pain (Pain Scale 1-3) 02/29/20 20:00 03/30/20 19:59 03/02/20 18:24 Acetaminophen (Tylenol) 650 mg Q4H PRN ORAL Temp >100 03/02/20 22:30 04/01/20 22:29 Diphenhydramine HCl (Benadryl) 25 mg Q4H PRN ORAL moderate itching 02/29/20 20:00 03/30/20 19:59 Diphenhydramine HCl (Benadryl) 50 mg Q4H PRN ORAL SEVERE ITCHING 02/29/20 20:00 03/30/20 19:59 Lactulose (Cephulac) 10 gm THREE TIMES A DAY ORAL 03/02/20 13:00 04/01/20 12:59 03/03/20 09:52 Lorazepam (Ativan) 2 mg Q6H PRN ORAL Anxiety 03/02/20 18:15 03/09/20 18:14 03/02/20 21:01 Meropenem 1 gm/ Sodium Chloride 55 ml @ 110 mls/hr Q8HR IVPB 03/03/20 14:00 03/08/20 13:59 Mirtazapine (Remeron) 7.5 mg BEDTIME PRN ORAL SLEEP 03/02/20 18:00 05/31/20 17:59 Morphine Sulfate (Morphine Sulfate) 2 mg Q4H PRN IVP For Pain 4-03/01/20 20:24 03/08/20 20:23 03/02/20 16:11 Rifaximin (Xifaxan) 550 mg EVERY 12 HOURS ORAL 03/02/20 21:00 03/09/20 20:59 03/03/20 09:52 Last 24 Hour Vital Signs Date Time Temp Pulse Resp B/P (MAP) Pulse Ox O2 Delivery O2 Flow Rate FiO2 03/03/20 04:00 97.5 71 20 127/72 (90) 97 03/03/20 00:00 97.5 72 19 105/49 (67) 97 03/02/20 21:00 Nasal Cannula 2.0 03/02/20 20:00 98.4 77 21 118/55 (76) 91 03/02/20 18:54 101.5 03/02/20 18:50 101.5 77 18 115/66 (82) 92 03/02/20 18:16 101.8 78 18 116/71 (86) 92 03/02/20 16:00 98.5 80 20 104/60 (75) 91 03/02/20 12:00 100.4 82 17 108/52 (70) 95 03/02/20 09:00 Nasal Cannula 2.0 03/02/20 08:00 98.0 75 18 107/59 (75) 95 03/02/20 04:00 98.2 74 18 96/63 (74) 93 03/02/20 00:00 98.6 72 20 92/57 (69) 95 03/01/20 21:00 Nasal Cannula 2.0 03/01/20 20:00 99.5 83 20 107/60 (76) 93 03/01/20 16:00 98.1 83 20 100/52 (68) 93 Intake and Output 03/02/20 03/03/20 19:00 07:00 Intake Total 260 ml 300 ml Balance 260 ml 300 ml Intake Oral 260 ml 300 ml # Voids 3 1 Labs Test 02/29/20 16:32 03/01/20 05:20 03/01/20 13:45 03/01/20 14:30 White Blood Count 8.2 K/UL (4.8-10.8) 6.5 K/UL (4.8-10.8) Red Blood Count 2.26 M/UL (4.20-5.40) 1.94 M/UL (4.20-5.40) Hemoglobin 7.9 G/DL (12.0-16.0) 7.0 G/DL (12.0-16.0) Hematocrit 24.1 % (37.0-47.0) 19.4 % (37.0-47.0) Mean Corpuscular Volume 107 FL (80-99) 100 FL (80-99) Mean Corpuscular Hemoglobin 35.1 PG (27.0-31.0) 36.0 PG (27.0-31.0) Mean Corpuscular Hemoglobin Concent 32.9 G/DL (32.0-36.0) 36.0 G/DL (32.0-36.0) Red Cell Distribution Width 16.0 % (11.6-14.8) 14.7 % (11.6-14.8) Platelet Count 155 K/UL (150-450) 136 K/UL (150-450) Mean Platelet Volume 7.2 FL (6.5-10.1) 6.2 FL (6.5-10.1) Neutrophils (%) (Auto) % (45.0-75.0) % (45.0-75.0) Lymphocytes (%) (Auto) % (20.0-45.0) % (20.0-45.0) Monocytes (%) (Auto) % (1.0-10.0) % (1.0-10.0) Eosinophils (%) (Auto) % (0.0-3.0) % (0.0-3.0) Basophils (%) (Auto) % (0.0-2.0) % (0.0-2.0) Differential Total Cells Counted 100 100 Neutrophils % (Manual) 77 % (45-75) 73 % (45-75) Lymphocytes % (Manual) 13 % (20-45) 13 % (20-45) Monocytes % (Manual) 7 % (1-10) 12 % (1-10) Eosinophils % (Manual) 3 % (0-3) 2 % (0-3) Basophils % (Manual) 0 % (0-2) 0 % (0-2) Band Neutrophils 0 % (0-8) 0 % (0-8) Nucleated Red Blood Cells 10 /100 WBC Platelet Estimate Adequate Decreased Platelet Morphology Normal Normal Hypochromasia 2+ 3+ Anisocytosis 1+ 1+ Macrocytosis 1+ Urine Color Yellow Urine Appearance Clear Urine pH 7 (4.5-8.0) Urine Specific [place] 1.010 (1.005-1.035) Urine Protein 2+ (NEGATIVE) Urine Glucose (UA) Negative (NEGATIVE) Urine Ketones 1+ (NEGATIVE) Urine Blood 1+ (NEGATIVE) Urine Nitrite Negative (NEGATIVE) Urine Bilirubin 2+ (NEGATIVE) Urine Ictotest Negative (NEGATIVE) Urine Urobilinogen 12 MG/DL (0.0-1.0) Urine Leukocyte Esterase 1+ (NEGATIVE) Urine RBC 2-4 /HPF (0 - 2) Urine WBC 5-10 /HPF (0 - 2) Urine Squamous Epithelial Cells Moderate /LPF (NONE/OCC) Urine Bacteria Few /HPF (NONE) Sodium Level 139 MMOL/L (136-145) 142 MMOL/L (136-145) Potassium Level 3.7 MMOL/L (3.5-5.1) 3.6 MMOL/L (3.5-5.1) Chloride Level 105 MMOL/L (98-107) 108 MMOL/L (98-107) Carbon Dioxide Level 28 MMOL/L (21-32) 25 MMOL/L (21-32) Anion Gap 6 mmol/L (5-15) 9 mmol/L (5-15) Blood Urea Nitrogen 5 mg/dL (7-18) 5 mg/dL (7-18) Creatinine 0.7 MG/DL (0.55-1.30) 0.9 MG/DL (0.55-1.30) Estimat Glomerular Filtration Rate > 60 mL/min (>60) > 60 mL/min (>60) Glucose Level 97 MG/DL (74-106) 106 MG/DL (74-106) Lactic Acid Level 1.80 mmol/L (0.4-2.0) Calcium Level 8.6 MG/DL (8.5-10.1) 8.1 MG/DL (8.5-10.1) Total Bilirubin 1.1 MG/DL (0.2-1.0) Direct Bilirubin 0.5 MG/DL (0.0-0.3) Aspartate Amino Transf (AST/SGOT) 48 U/L (15-37) Alanine Aminotransferase (ALT/SGPT) 21 U/L (12-78) Alkaline Phosphatase 137 U/L (46-116) Total Creatine Kinase 244 U/L (26-308) Creatine Kinase MB 5.2 NG/ML (0.0-3.6) Creatine Kinase MB Relative Index 2.1 Troponin I 0.015 ng/mL (0.000-0.056) Pro-B-Type Natriuretic Peptide 968 pg/mL (0-125) Total Protein 7.7 G/DL (6.4-8.2) Albumin 2.0 G/DL (3.4-5.0) Globulin 5.7 g/dL Albumin/Globulin Ratio 0.4 (1.0-2.7) Lipase 99 U/L (73-393) Spherocytes 2+ Reticulocyte Count 0.9 % (0.5-2.0) Ferritin 792 NG/ML (8-388) Vitamin B12 Level 1784 PG/ML (193-986) Stool Occult Blood Negative (NEGATIVE) Test 03/02/20 05:50 03/03/20 00:15 03/03/20 05:35 White Blood Count 3.3 K/UL (4.8-10.8) 3.5 K/UL (4.8-10.8) Red Blood Count 2.02 M/UL (4.20-5.40) 2.47 M/UL (4.20-5.40) Hemoglobin 7.1 G/DL (12.0-16.0) 8.4 G/DL (12.0-16.0) Hematocrit 20.5 % (37.0-47.0) 24.6 % (37.0-47.0) Mean Corpuscular Volume 102 FL (80-99) 100 FL (80-99) Mean Corpuscular Hemoglobin 34.9 PG (27.0-31.0) 34.0 PG (27.0-31.0) Mean Corpuscular Hemoglobin Concent 34.4 G/DL (32.0-36.0) 34.1 G/DL (32.0-36.0) Red Cell Distribution Width 16.5 % (11.6-14.8) 17.1 % (11.6-14.8) Platelet Count 137 K/UL (150-450) 132 K/UL (150-450) Mean Platelet Volume 6.2 FL (6.5-10.1) 5.4 FL (6.5-10.1) Neutrophils (%) (Auto) % (45.0-75.0) 61.4 % (45.0-75.0) Lymphocytes (%) (Auto) % (20.0-45.0) 22.0 % (20.0-45.0) Monocytes (%) (Auto) % (1.0-10.0) 12.7 % (1.0-10.0) Eosinophils (%) (Auto) % (0.0-3.0) 2.6 % (0.0-3.0) Basophils (%) (Auto) % (0.0-2.0) 1.3 % (0.0-2.0) Differential Total Cells Counted 100 Neutrophils % (Manual) 73 % (45-75) Lymphocytes % (Manual) 14 % (20-45) Monocytes % (Manual) 10 % (1-10) Eosinophils % (Manual) 2 % (0-3) Basophils % (Manual) 0 % (0-2) Band Neutrophils 1 % (0-8) Nucleated Red Blood Cells 3 /100 WBC Platelet Estimate Decreased Platelet Morphology Normal Hypochromasia 3+ Macrocytosis 1+ Spherocytes 2+ Prothrombin Time 15.7 SEC (9.30-11.50) Prothromb Time International Ratio 1.5 (0.9-1.1) Sodium Level 140 MMOL/L (136-145) 138 MMOL/L (136-145) Potassium Level 3.3 MMOL/L (3.5-5.1) 3.5 MMOL/L (3.5-5.1) Chloride Level 106 MMOL/L (98-107) 104 MMOL/L (98-107) Carbon Dioxide Level 25 MMOL/L (21-32) 26 MMOL/L (21-32) Anion Gap 9 mmol/L (5-15) 9 mmol/L (5-15) Blood Urea Nitrogen 6 mg/dL (7-18) 7 mg/dL (7-18) Creatinine 0.9 MG/DL (0.55-1.30) 0.8 MG/DL (0.55-1.30) Estimat Glomerular Filtration Rate > 60 mL/min (>60) > 60 mL/min (>60) Glucose Level 99 MG/DL (74-106) 110 MG/DL (74-106) Calcium Level 7.5 MG/DL (8.5-10.1) 7.0 MG/DL (8.5-10.1) Iron Level 33 ug/dL (50-175) Total Iron Binding Capacity 194 ug/dL (250-450) Percent Iron Saturation 17 % (15-50) Unsaturated Iron Binding 161 ug/dL (112-346) Total Bilirubin 0.8 MG/DL (0.2-1.0) 0.8 MG/DL (0.2-1.0) Aspartate Amino Transf (AST/SGOT) 53 U/L (15-37) 52 U/L (15-37) Alanine Aminotransferase (ALT/SGPT) 26 U/L (12-78) 26 U/L (12-78) Alkaline Phosphatase 125 U/L (46-116) 120 U/L (46-116) Ammonia 68 umol/L (11-32) Total Protein 7.7 G/DL (6.4-8.2) 7.8 G/DL (6.4-8.2) Albumin 2.0 G/DL (3.4-5.0) 2.0 G/DL (3.4-5.0) Globulin 5.7 g/dL 5.8 g/dL Albumin/Globulin Ratio 0.4 (1.0-2.7) 0.3 (1.0-2.7) Folate 15.4 NG/ML (8.6-58.9) Hepatitis A IgM Antibody Negative (Negative) Hepatitis B Surface Antigen Negative (Negative) Hepatitis B Core IgM Antibody Negative (Negative) Hepatitis C Antibody >11.0 s/co ratio HIV (1&2) Antibody Rapid Negative (NEGATIVE) Vancomycin Level Trough 27.2 ug/mL (5.0-12.0) Height (Feet): 5 Height (Inches): 1.00 Weight (Pounds): 289 Objective Physical Exam: Vitals: reviewed General: NAD HEENT: nc, at Neck: supple Chest: clear breath sounds bilaterally Cardiovascular: RRR, no s3, s4 EXT ++ Significant edema and erythema bilateral lower extremity, patient also has blistering on both feet given the edema, whittish overcrust/crusting++ Neurologic: alert, oriented x3 Skin: other - As above Brett Mcclain MD Mar 03, 2020 13:18
[2020-03-03] MEDS: Meropenem 1 GM in NS 55 ML IVPB SCH ×2 (14:38→22:49)
[2020-03-03 16:00] VITALS: BP 148/89
[2020-03-03] MEDS ORDERED: Vancomycin 1gm/D5W 275ml IVPB SCH ×2 (16:00)
--- NOTE | 2020-03-03 20:31 | Surgery Progress Note ---
Surgery Progress Note Subjective Additional Comments on abx micro noted not very talkative today no complaints Objective Last 24 Hour Vital Signs Date Time Temp Pulse Resp B/P (MAP) Pulse Ox O2 Delivery O2 Flow Rate FiO2 03/03/20 19:07 99.8 03/03/20 19:07 99.8 03/03/20 16:00 100.2 83 19 148/89 (108) 94 03/03/20 12:00 101.6 78 20 114/67 (83) 94 03/03/20 09:00 Nasal Cannula 2.0 03/03/20 08:00 99.3 72 20 119/69 (86) 99 03/03/20 04:00 97.5 71 20 127/72 (90) 97 03/03/20 00:00 97.5 72 19 105/49 (67) 97 03/02/20 21:00 Nasal Cannula 2.0 I&O Intake and Output 03/02/20 03/03/20 19:00 07:00 Intake Total 260 ml 300 ml Balance 260 ml 300 ml Intake Oral 260 ml 300 ml # Voids 3 1 Dressing: dry Wound: clean Cardiovascular: RSR Respiratory: clear Abdomen: soft, other - obese Extremities: edema, no tenderness, no cyanosis, other Laboratory Tests Test 03/03/20 00:15 03/03/20 05:35 Vancomycin Level Trough 27.2 ug/mL (5.0-12.0) H White Blood Count 3.5 K/UL (4.8-10.8) L Red Blood Count 2.47 M/UL (4.20-5.40) L Hemoglobin 8.4 G/DL (12.0-16.0) L Hematocrit 24.6 % (37.0-47.0) L Mean Corpuscular Volume 100 FL (80-99) H Mean Corpuscular Hemoglobin 34.0 PG (27.0-31.0) H Mean Corpuscular Hemoglobin Concent 34.1 G/DL (32.0-36.0) Red Cell Distribution Width 17.1 % (11.6-14.8) H Platelet Count 132 K/UL (150-450) L Mean Platelet Volume 5.4 FL (6.5-10.1) L Neutrophils (%) (Auto) 61.4 % (45.0-75.0) Lymphocytes (%) (Auto) 22.0 % (20.0-45.0) Monocytes (%) (Auto) 12.7 % (1.0-10.0) H Eosinophils (%) (Auto) 2.6 % (0.0-3.0) Basophils (%) (Auto) 1.3 % (0.0-2.0) Sodium Level 138 MMOL/L (136-145) Potassium Level 3.5 MMOL/L (3.5-5.1) Chloride Level 104 MMOL/L (98-107) Carbon Dioxide Level 26 MMOL/L (21-32) Anion Gap 9 mmol/L (5-15) Blood Urea Nitrogen 7 mg/dL (7-18) Creatinine 0.8 MG/DL (0.55-1.30) Estimat Glomerular Filtration Rate > 60 mL/min (>60) Glucose Level 110 MG/DL (74-106) H Calcium Level 7.0 MG/DL (8.5-10.1) L Total Bilirubin 0.8 MG/DL (0.2-1.0) Aspartate Amino Transf (AST/SGOT) 52 U/L (15-37) H Alanine Aminotransferase (ALT/SGPT) 26 U/L (12-78) Alkaline Phosphatase 120 U/L (46-116) H Total Protein 7.8 G/DL (6.4-8.2) Albumin 2.0 G/DL (3.4-5.0) L Globulin 5.8 g/dL Albumin/Globulin Ratio 0.3 (1.0-2.7) L Plan Problems: (1) Cellulitis Assessment & Plan: bilateral lower extremity cellulitis / edema chronic venous status changes dermatitis no abscess no purulent drainage ulcerations forming. keep lower extremity elevated while in bed apply skin protectant / moisturizing cream daily okay to shower okay to wrap soft after cream abx as per ID for cellulitis okay for diet duplex ordered trend labs will follow with recs thank you No evidence of deep venous thrombosis involving the visualized veins of the RIGHT lower extremity. refused eval of left Theron Sotomayor Mar 03, 2020 20:31
--- NOTE | 2020-03-03 21:36 | General Progress Note ---
Assessment/Plan Problem List: (1) Cellulitis ICD Codes: L03.90 - Cellulitis, unspecified SNOMED: [id number] Qualifiers: Qualified Codes: L03.119 - Cellulitis of unspecified part of limb Status: progressing Assessment/Plan: bilat cellulitis leg pain per id needs iv abx for psuedomonas afebrile Subjective ROS Limited/Unobtainable: Yes Allergies: Coded Allergies: No Known Allergies (Unverified , 02/29/20) Objective Last 24 Hour Vital Signs Date Time Temp Pulse Resp B/P (MAP) Pulse Ox O2 Delivery O2 Flow Rate FiO2 03/03/20 19:07 99.8 03/03/20 19:07 99.8 03/03/20 16:00 100.2 83 19 148/89 (108) 94 03/03/20 12:00 101.6 78 20 114/67 (83) 94 03/03/20 09:00 Nasal Cannula 2.0 03/03/20 08:00 99.3 72 20 119/69 (86) 99 03/03/20 04:00 97.5 71 20 127/72 (90) 97 03/03/20 00:00 97.5 72 19 105/49 (67) 97 Intake and Output 03/02/20 03/03/20 19:00 07:00 Intake Total 260 ml 300 ml Balance 260 ml 300 ml Intake Oral 260 ml 300 ml # Voids 3 1 Laboratory Tests 03/03/20 00:15: Vancomycin Level Trough 27.2H 03/03/20 05:35: White Blood Count 3.5L, Red Blood Count 2.47L, Hemoglobin 8.4L, Hematocrit 24.6L , Mean Corpuscular Volume 100H, Mean Corpuscular Hemoglobin 34.0H, Mean Corpuscular Hemoglobin Concent 34.1, Red Cell Distribution Width 17.1H, Platelet Count 132L, Mean Platelet Volume 5.4L, Neutrophils (%) (Auto) 61.4, Lymphocytes (%) (Auto) 22.0, Monocytes (%) (Auto) 12.7H, Eosinophils (%) (Auto) 2.6, Basophils (%) (Auto) 1.3, Sodium Level 138, Potassium Level 3.5, Chloride Level 104, Carbon Dioxide Level 26, Anion Gap 9, Blood Urea Nitrogen 7, Creatinine 0.8, Estimat Glomerular Filtration Rate > 60, Glucose Level 110H, Calcium Level 7.0L, Total Bilirubin 0.8, Aspartate Amino Transf (AST/SGOT) 52H, Alanine Aminotransferase (ALT/SGPT) 26, Alkaline Phosphatase 120H, Total Protein 7.8, Albumin 2.0L, Globulin 5.8, Albumin/Globulin Ratio 0.3L Height (Feet): 5 Height (Inches): 1.00 Weight (Pounds): 289 Celso Moreno MD Mar 03, 2020 21:36
--- NOTE | 2020-03-03 23:27 | Psych Consult Progress Note ---
Psychiatry Progress Note Psychiatry Progress Note Medications Current Medications Medications (Trade) Dose Ordered Sig/Dolores Route PRN Reason Start Time Stop Time Status Last Admin Dose Admin Acetaminophen (Tylenol) 650 mg Q4H PRN ORAL Mild Pain (Pain Scale 1-3) 02/29/20 20:00 03/30/20 19:59 03/02/20 18:24 Acetaminophen (Tylenol) 650 mg Q4H PRN ORAL Temp >100 03/02/20 22:30 04/01/20 22:29 03/03/20 22:49 Diphenhydramine HCl (Benadryl) 25 mg Q4H PRN ORAL moderate itching 02/29/20 20:00 03/30/20 19:59 Diphenhydramine HCl (Benadryl) 50 mg Q4H PRN ORAL SEVERE ITCHING 02/29/20 20:00 03/30/20 19:59 Lactulose (Cephulac) 10 gm THREE TIMES A DAY ORAL 03/02/20 13:00 04/01/20 12:59 03/03/20 17:47 Lorazepam (Ativan) 2 mg Q6H PRN ORAL Anxiety 03/02/20 18:15 03/09/20 18:14 03/02/20 21:01 Meropenem 1 gm/ Sodium Chloride 55 ml @ 110 mls/hr Q8HR IVPB 03/03/20 14:00 03/08/20 13:59 03/03/20 22:49 Mirtazapine (Remeron) 7.5 mg BEDTIME PRN ORAL SLEEP 03/02/20 18:00 05/31/20 17:59 03/03/20 22:57 Morphine Sulfate (Morphine Sulfate) 2 mg Q4H PRN IVP For Pain 4-03/01/20 20:24 03/08/20 20:23 03/02/20 16:11 Rifaximin (Xifaxan) 550 mg EVERY 12 HOURS ORAL 03/02/20 21:00 03/09/20 20:59 03/03/20 22:49 Neurological/Psychiatric: Reports: anxiety, depressed, emotional problems Allergies: Coded Allergies: No Known Allergies (Unverified , 02/29/20) Objective Data Height (Feet): 5 Height (Inches): 1.00 Weight (Pounds): 289 General Appearance: WD/WN, no apparent distress, alert, alert oriented x3 Additional Comments: MENTAL STATUS EXAMINATION: Alert and oriented to time, self, place, situation. Mood is anxious. Affect is constricted. Congruent mood. Thought process is concrete. Thought content, no suicidal or homicidal ideation. Cognition is intact. Insight and judgment fair. Assessment/Plan Franklin I: ASSESSMENT: Franklin I: Anxiety disorder. Status: progressing Assessment/Plan: ativan prn provided ro/Justice Walter MD Mar 03, 2020 23:27
[2020-03-04] VITALS: BP 106/72
[2020-03-04 04:00] VITALS: BP 114/69
[2020-03-04] MEDS: Meropenem 1 GM in NS 55 ML IVPB SCH ×3 (05:00→22:42)
--- NOTE | 2020-03-04 07:37 | General Progress Note ---
Assessment/Plan Status: progressing Assessment/Plan: macrocytic anemia elevated LFTS cirrhosis cellulitis elevated Ammonia levels abd us>> reviewed lactulose and Xifaxan fu stool ob>>>neg s/p one unit PRBC GI procedures if needed abx per id hepatitis panel>>>>>positive for hep C>>> needs out patient fu will fu Subjective ROS Limited/Unobtainable: Yes Allergies: Coded Allergies: No Known Allergies (Unverified , 02/29/20) Objective Last 24 Hour Vital Signs Date Time Temp Pulse Resp B/P (MAP) Pulse Ox O2 Delivery O2 Flow Rate FiO2 03/04/20 04:00 98.9 65 18 114/69 (84) 96 03/04/20 00:00 100.2 86 18 106/72 (83) 94 03/03/20 23:19 100.2 03/03/20 21:00 Nasal Cannula 2.0 03/03/20 19:07 99.8 03/03/20 16:00 100.2 83 19 148/89 (108) 94 03/03/20 12:00 101.6 78 20 114/67 (83) 94 03/03/20 09:00 Nasal Cannula 2.0 03/03/20 08:00 99.3 72 20 119/69 (86) 99 Intake and Output 03/03/20 03/04/20 19:00 07:00 Intake Total 840 ml Output Total 500 ml 600 ml Balance -500 ml 240 ml Intake Oral 840 ml Output Urine Total 500 ml 600 ml # Voids 4 # Bowel Movements 2 Height (Feet): 5 Height (Inches): 1.00 Weight (Pounds): 289 General Appearance: alert EENT: normal ENT inspection Neck: normal alignment Cardiovascular: normal rate Respiratory/Chest: decreased breath sounds Abdomen: normal bowel sounds, non tender, soft Extremities: non-tender Tam Spicer MD Mar 04, 2020 07:37
[2020-03-04 08:00] VITALS: BP 124/72
[2020-03-04] MEDS: Lactulose 10gm/15ml UDC ORAL SCH ×3 (08:29→17:05)
[2020-03-04 08:35] LABS: HEMATOCRIT 23.6 % (37.0-47.0); HEMOGLOBIN 8.1 G/DL (12.0-16.0); MEAN CORPUSCULAR VOLUME 99 FL (80-99); PLATELET COUNT 119 K/UL (150-450); RED BLOOD COUNT 2.38 M/UL (4.20-5.40); RED CELL DISTRIBUTION WIDTH 16.7 % (11.6-14.8); WHITE BLOOD COUNT 4.2 K/UL (4.8-10.8)
[2020-03-04 09:05] LABS: ALANINE AMINOTRANSFERASE 25 U/L (12-78); ALBUMIN 1.9 G/DL (3.4-5.0); ALBUMIN/GLOBULIN RATIO 0.3 (1.0-2.7); ALKALINE PHOSPHATASE 111 U/L (46-116); ANION GAP 5 mmol/L (5-15); ASPARTATE AMINO TRANSFERASE 51 U/L (15-37); BILIRUBIN,TOTAL 0.6 MG/DL (0.2-1.0); BLOOD UREA NITROGEN 7 mg/dL (7-18); CALCIUM 7.7 MG/DL (8.5-10.1); CARBON DIOXIDE 27 MMOL/L (21-32); CHLORIDE 103 MMOL/L (98-107); CREATININE 0.7 MG/DL (0.55-1.30); POTASSIUM 3.3 MMOL/L (3.5-5.1); SODIUM 135 MMOL/L (136-145)
--- NOTE | 2020-03-04 10:46 | General Progress Note ---
Assessment/Plan Problem List: (1) Cellulitis ICD Codes: L03.90 - Cellulitis, unspecified SNOMED: [id number] Qualifiers: Qualified Codes: L03.119 - Cellulitis of unspecified part of limb Status: progressing Assessment/Plan: bilat cellulitis leg pain per id needs iv abx for psuedomonas dc to any snf for iv abx Subjective ROS Limited/Unobtainable: Yes Allergies: Coded Allergies: No Known Allergies (Unverified , 02/29/20) Objective Last 24 Hour Vital Signs Date Time Temp Pulse Resp B/P (MAP) Pulse Ox O2 Delivery O2 Flow Rate FiO2 03/04/20 04:00 98.9 65 18 114/69 (84) 96 03/04/20 00:00 100.2 86 18 106/72 (83) 94 03/03/20 23:19 100.2 03/03/20 21:00 Nasal Cannula 2.0 03/03/20 19:07 99.8 03/03/20 16:00 100.2 83 19 148/89 (108) 94 03/03/20 12:00 101.6 78 20 114/67 (83) 94 Intake and Output 03/03/20 03/04/20 19:00 07:00 Intake Total 840 ml Output Total 500 ml 600 ml Balance -500 ml 240 ml Intake Oral 840 ml Output Urine Total 500 ml 600 ml # Voids 4 # Bowel Movements 2 Laboratory Tests 03/04/20 06:30: White Blood Count 4.2L, Red Blood Count 2.38L, Hemoglobin 8.1L, Hematocrit 23.6L , Mean Corpuscular Volume 99, Mean Corpuscular Hemoglobin 34.1H, Mean Corpuscular Hemoglobin Concent 34.5, Red Cell Distribution Width 16.7H, Platelet Count 119L, Mean Platelet Volume 5.4L, Neutrophils (%) (Auto) , Lymphocytes (%) (Auto) , Monocytes (%) (Auto) , Eosinophils (%) (Auto) , Basophils (%) (Auto) , Neutrophils % (Manual) [Pending], Lymphocytes % (Manual) [Pending], Platelet Estimate [Pending], Platelet Morphology [Pending], Sodium Level 135L, Potassium Level 3.3L, Chloride Level 103, Carbon Dioxide Level 27, Anion Gap 5, Blood Urea Nitrogen 7, Creatinine 0.7, Estimat Glomerular Filtration Rate > 60, Glucose Level 72L, Calcium Level 7.7L, Total Bilirubin 0.6 , Aspartate Amino Transf (AST/SGOT) 51H, Alanine Aminotransferase (ALT/SGPT) 25 , Alkaline Phosphatase 111, Total Protein 7.4, Albumin 1.9L, Globulin 5.5, Albumin/Globulin Ratio 0.3L, Hepatitis C Antibody [Pending], Hepatitis C RNA ( PCR) IUs/ml [Pending], Hepatitis C RNA (PCR) log IUs/ml [Pending] Height (Feet): 5 Height (Inches): 1.00 Weight (Pounds): 289 Celso Moreno MD Mar 04, 2020 10:46
[2020-03-04 12:00] VITALS: BP 119/66
--- NOTE | 2020-03-04 15:01 | Surgery Progress Note ---
Surgery Progress Note Subjective Additional Comments labs stable exam stable comfortable no acute events Objective Last 24 Hour Vital Signs Date Time Temp Pulse Resp B/P (MAP) Pulse Ox O2 Delivery O2 Flow Rate FiO2 03/04/20 04:00 98.9 65 18 114/69 (84) 96 03/04/20 00:00 100.2 86 18 106/72 (83) 94 03/03/20 23:19 100.2 03/03/20 21:00 Nasal Cannula 2.0 03/03/20 19:07 99.8 03/03/20 16:00 100.2 83 19 148/89 (108) 94 I&O Intake and Output 03/03/20 03/04/20 19:00 07:00 Intake Total 840 ml Output Total 500 ml 600 ml Balance -500 ml 240 ml Intake Oral 840 ml Output Urine Total 500 ml 600 ml # Voids 4 # Bowel Movements 2 Dressing: dry Wound: clean Cardiovascular: RSR Respiratory: clear, decreased breath sounds Abdomen: soft, non-tender, present bowel sounds Extremities: edema, no tenderness, no cyanosis, other Laboratory Tests Test 03/04/20 06:30 White Blood Count 4.2 K/UL (4.8-10.8) L Red Blood Count 2.38 M/UL (4.20-5.40) L Hemoglobin 8.1 G/DL (12.0-16.0) L Hematocrit 23.6 % (37.0-47.0) L Mean Corpuscular Volume 99 FL (80-99) Mean Corpuscular Hemoglobin 34.1 PG (27.0-31.0) H Mean Corpuscular Hemoglobin Concent 34.5 G/DL (32.0-36.0) Red Cell Distribution Width 16.7 % (11.6-14.8) H Platelet Count 119 K/UL (150-450) L Mean Platelet Volume 5.4 FL (6.5-10.1) L Neutrophils (%) (Auto) % (45.0-75.0) Lymphocytes (%) (Auto) % (20.0-45.0) Monocytes (%) (Auto) % (1.0-10.0) Eosinophils (%) (Auto) % (0.0-3.0) Basophils (%) (Auto) % (0.0-2.0) Differential Total Cells Counted 100 Neutrophils % (Manual) 86 % (45-75) H Lymphocytes % (Manual) 7 % (20-45) L Monocytes % (Manual) 7 % (1-10) Eosinophils % (Manual) 0 % (0-3) Basophils % (Manual) 0 % (0-2) Band Neutrophils 0 % (0-8) Platelet Estimate Decreased L Platelet Morphology Normal Anisocytosis 1+ Sodium Level 135 MMOL/L (136-145) L Potassium Level 3.3 MMOL/L (3.5-5.1) L Chloride Level 103 MMOL/L (98-107) Carbon Dioxide Level 27 MMOL/L (21-32) Anion Gap 5 mmol/L (5-15) Blood Urea Nitrogen 7 mg/dL (7-18) Creatinine 0.7 MG/DL (0.55-1.30) Estimat Glomerular Filtration Rate > 60 mL/min (>60) Glucose Level 72 MG/DL (74-106) L Calcium Level 7.7 MG/DL (8.5-10.1) L Total Bilirubin 0.6 MG/DL (0.2-1.0) Aspartate Amino Transf (AST/SGOT) 51 U/L (15-37) H Alanine Aminotransferase (ALT/SGPT) 25 U/L (12-78) Alkaline Phosphatase 111 U/L (46-116) Total Protein 7.4 G/DL (6.4-8.2) Albumin 1.9 G/DL (3.4-5.0) L Globulin 5.5 g/dL Albumin/Globulin Ratio 0.3 (1.0-2.7) L Hepatitis C Antibody Pending Hepatitis C RNA (PCR) IUs/ml Pending Hepatitis C RNA (PCR) log IUs/ml Pending Plan Problems: (1) Cellulitis Assessment & Plan: bilateral lower extremity cellulitis / edema chronic venous status changes dermatitis no abscess no purulent drainage ulcerations forming. keep lower extremity elevated while in bed apply skin protectant / moisturizing cream daily okay to shower okay to wrap soft after cream abx as per ID for cellulitis okay for diet duplex ordered trend labs will follow with recs thank you No evidence of deep venous thrombosis involving the visualized veins of the RIGHT lower extremity. refused eval of left Theron Sotomayor Mar 04, 2020 15:01
[2020-03-04 16:00] VITALS: BP 120/68
[2020-03-04] MEDS: Morphine Sulfate 2mg/ml Inj(IV/IM USE ONLY) IVP PRN (17:07)
[2020-03-04 20:00] VITALS: BP 118/50
[2020-03-05] VITALS: BP 130/72
--- NOTE | 2020-03-05 03:00 | Progress Note ---
DATE: 03/04/2020 SUBJECTIVE: The patient is in bed. Anxiety is controlled. Doing well. No behavior issues noted. Compliant with medications. MENTAL STATUS EXAMINATION: The patient is alert and oriented to time, self, place, and situation. Mood is neutral. Affect is constricted. Congruent mood. Thought process is concrete. Thought content, no suicidal or homicidal ideation. ASSESSMENT: Anxiety disorder. PLAN: 1. Continue the Ativan p.r.n. 2. Provide the patient with reality orientation and supportive therapy. Justice Marniquez M.D. DR: Praveen JOB#: [id number] CC:
[2020-03-05] MEDS: Morphine Sulfate 2mg/ml Inj(IV/IM USE ONLY) IVP PRN ×3 (03:37→21:41)
[2020-03-05] MEDS: DiphenhydrAMINE 25mg Tab ORAL PRN (03:37)
[2020-03-05 04:43] VITALS: BP 143/79
[2020-03-05] MEDS: Meropenem 1 GM in NS 55 ML IVPB SCH ×3 (05:29→21:40)
[2020-03-05 08:00] VITALS: BP 115/65
[2020-03-05] MEDS: Lactulose 10gm/15ml UDC ORAL SCH ×4 (08:34→17:16)
[2020-03-05 09:15] LABS: BASOPHILS % (AUTO) 1.2 % (0.0-2.0); EOSINOPHILS % (AUTO) 8.2 % (0.0-3.0); HEMOGLOBIN 8.2 G/DL (12.0-16.0); LYMPHOCYTES % (AUTO) 25.3 % (20.0-45.0); MEAN CORPUSCULAR VOLUME 100 FL (80-99); MONOCYTES % (AUTO) 8.3 % (1.0-10.0); PLATELET COUNT 149 K/UL (150-450); RED CELL DISTRIBUTION WIDTH 17.7 % (11.6-14.8); WHITE BLOOD COUNT 3.8 K/UL (4.8-10.8)
[2020-03-05 09:23] LABS: ANION GAP 7 mmol/L (5-15); BLOOD UREA NITROGEN 4 mg/dL (7-18); CALCIUM 7.2 MG/DL (8.5-10.1); CARBON DIOXIDE 26 MMOL/L (21-32); CHLORIDE 106 MMOL/L (98-107); CREATININE 0.7 MG/DL (0.55-1.30); POTASSIUM 3.2 MMOL/L (3.5-5.1); SODIUM 139 MMOL/L (136-145)
--- NOTE | 2020-03-05 09:52 | Hematology/Onc Progress Note ---
Assessment/Plan Assessment/Plan Assessment and Recs # Pancytopenia -- multiple etiologies could be related to underlying liver disease, medication-induced, infection versus viral syndrome versus underlying bone marrow cause, in this case, has severe liver disease and cirrhosis --> peripheral smear has been ordered and does not show significant abnormalities and none noted --> Medications have been reviewed --> Continue to monitor for improvement, trend cbc --> Hep panel and HIV are both negative --> US abd ordered to r/o cirrhosis and hepatosplenomegaly ->CIRRHOSIS IS NOTED , LARGE SPLEEN --> reverse isolation if ANC is <2000 --> Give neupogen if ANC <1000 --> Transfuse if hgb <7, with 1 unit prbc --> anemia panel ordered as well-->CW acd --> hgb trend 7-->7.1-->8.4-->8.2 --> abx: sameer/rifaximin # Cellulitis of the lower extremities --> continue abx as needed as per id --> Started on IV antibiotics --> as per surg recs, wound care # Elevated LFTS The timing of this note does not necessarily reflect the time of the patient was seen. Greatly appreciate consultation. Subjective Allergies: Coded Allergies: No Known Allergies (Unverified , 02/29/20) Subjective 03/02 no events, no bleeding, hgb 7.1, no hemolysis 03/03 s/p blood, hgb improved to 8.4, stool ob negtive, on abx 03/05 asleep, no acute distress, hgb 8.2 Objective Objective Current Medications Medications (Trade) Dose Ordered Sig/Dolores Route PRN Reason Start Time Stop Time Status Last Admin Dose Admin Acetaminophen (Tylenol) 650 mg Q4H PRN ORAL Mild Pain (Pain Scale 1-3) 02/29/20 20:00 03/30/20 19:59 03/02/20 18:24 Acetaminophen (Tylenol) 650 mg Q4H PRN ORAL Temp >100 03/02/20 22:30 04/01/20 22:29 03/05/20 03:43 Diphenhydramine HCl (Benadryl) 25 mg Q4H PRN ORAL moderate itching 02/29/20 20:00 03/30/20 19:59 03/05/20 03:37 Diphenhydramine HCl (Benadryl) 50 mg Q4H PRN ORAL SEVERE ITCHING 02/29/20 20:00 03/30/20 19:59 03/04/20 04:36 Lactulose (Cephulac) 10 gm THREE TIMES A DAY ORAL 03/02/20 13:00 04/01/20 12:59 03/05/20 08:34 Lorazepam (Ativan) 2 mg Q6H PRN ORAL Anxiety 03/02/20 18:15 03/09/20 18:14 03/02/20 21:01 Meropenem 1 gm/ Sodium Chloride 55 ml @ 110 mls/hr Q8HR IVPB 03/03/20 14:00 03/08/20 13:59 03/05/20 05:29 Mirtazapine (Remeron) 7.5 mg BEDTIME PRN ORAL SLEEP 03/02/20 18:00 05/31/20 17:59 03/03/20 22:57 Morphine Sulfate (Morphine Sulfate) 2 mg Q4H PRN IVP For Pain 4-03/01/20 20:24 03/08/20 20:23 03/05/20 03:37 Rifaximin (Xifaxan) 550 mg EVERY 12 HOURS ORAL 03/02/20 21:00 03/09/20 20:59 03/05/20 08:33 Last 24 Hour Vital Signs Date Time Temp Pulse Resp B/P (MAP) Pulse Ox O2 Delivery O2 Flow Rate FiO2 03/05/20 04:43 99.0 73 22 143/79 (100) 94 03/05/20 04:37 99.0 03/05/20 04:07 100.0 03/05/20 00:00 98.4 69 22 130/72 (91) 94 03/04/20 21:10 Nasal Cannula 2.0 03/04/20 20:00 97.7 70 18 118/50 (72) 97 03/04/20 16:00 98.6 64 20 120/68 (85) 94 03/04/20 12:00 97.9 64 20 119/66 (83) 93 03/04/20 09:00 Nasal Cannula 2.0 03/04/20 08:00 97.3 64 20 124/72 (89) 92 4/18/20 04:00 98.9 65 18 114/69 (84) 96 03/04/20 00:00 100.2 86 18 106/72 (83) 94 03/03/20 21:00 Nasal Cannula 2.0 03/03/20 19:07 99.8 03/03/20 16:00 100.2 83 19 148/89 (108) 94 03/03/20 12:00 101.6 78 20 114/67 (83) 94 Intake and Output 03/04/20 03/05/20 19:00 07:00 Intake Total 840 ml Balance 840 ml Intake Oral 840 ml Labs Test 03/03/20 00:15 03/03/20 05:35 03/04/20 06:30 03/05/20 07:18 Vancomycin Level Trough 27.2 ug/mL (5.0-12.0) White Blood Count 3.5 K/UL (4.8-10.8) 4.2 K/UL (4.8-10.8) 3.8 K/UL (4.8-10.8) Red Blood Count 2.47 M/UL (4.20-5.40) 2.38 M/UL (4.20-5.40) 2.40 M/UL (4.20-5.40) Hemoglobin 8.4 G/DL (12.0-16.0) 8.1 G/DL (12.0-16.0) 8.2 G/DL (12.0-16.0) Hematocrit 24.6 % (37.0-47.0) 23.6 % (37.0-47.0) 24.0 % (37.0-47.0) Mean Corpuscular Volume 100 FL (80-99) 99 FL (80-99) 100 FL (80-99) Mean Corpuscular Hemoglobin 34.0 PG (27.0-31.0) 34.1 PG (27.0-31.0) 34.3 PG (27.0-31.0) Mean Corpuscular Hemoglobin Concent 34.1 G/DL (32.0-36.0) 34.5 G/DL (32.0-36.0) 34.3 G/DL (32.0-36.0) Red Cell Distribution Width 17.1 % (11.6-14.8) 16.7 % (11.6-14.8) 17.7 % (11.6-14.8) Platelet Count 132 K/UL (150-450) 119 K/UL (150-450) 149 K/UL (150-450) Mean Platelet Volume 5.4 FL (6.5-10.1) 5.4 FL (6.5-10.1) 5.0 FL (6.5-10.1) Neutrophils (%) (Auto) 61.4 % (45.0-75.0) % (45.0-75.0) 57.0 % (45.0-75.0) Lymphocytes (%) (Auto) 22.0 % (20.0-45.0) % (20.0-45.0) 25.3 % (20.0-45.0) Monocytes (%) (Auto) 12.7 % (1.0-10.0) % (1.0-10.0) 8.3 % (1.0-10.0) Eosinophils (%) (Auto) 2.6 % (0.0-3.0) % (0.0-3.0) 8.2 % (0.0-3.0) Basophils (%) (Auto) 1.3 % (0.0-2.0) % (0.0-2.0) 1.2 % (0.0-2.0) Sodium Level 138 MMOL/L (136-145) 135 MMOL/L (136-145) 139 MMOL/L (136-145) Potassium Level 3.5 MMOL/L (3.5-5.1) 3.3 MMOL/L (3.5-5.1) 3.2 MMOL/L (3.5-5.1) Chloride Level 104 MMOL/L (98-107) 103 MMOL/L (98-107) 106 MMOL/L (98-107) Carbon Dioxide Level 26 MMOL/L (21-32) 27 MMOL/L (21-32) 26 MMOL/L (21-32) Anion Gap 9 mmol/L (5-15) 5 mmol/L (5-15) 7 mmol/L (5-15) Blood Urea Nitrogen 7 mg/dL (7-18) 7 mg/dL (7-18) 4 mg/dL (7-18) Creatinine 0.8 MG/DL (0.55-1.30) 0.7 MG/DL (0.55-1.30) 0.7 MG/DL (0.55-1.30) Estimat Glomerular Filtration Rate > 60 mL/min (>60) > 60 mL/min (>60) > 60 mL/min (>60) Glucose Level 110 MG/DL (74-106) 72 MG/DL (74-106) 91 MG/DL (74-106) Calcium Level 7.0 MG/DL (8.5-10.1) 7.7 MG/DL (8.5-10.1) 7.2 MG/DL (8.5-10.1) Total Bilirubin 0.8 MG/DL (0.2-1.0) 0.6 MG/DL (0.2-1.0) Aspartate Amino Transf (AST/SGOT) 52 U/L (15-37) 51 U/L (15-37) Alanine Aminotransferase (ALT/SGPT) 26 U/L (12-78) 25 U/L (12-78) Alkaline Phosphatase 120 U/L (46-116) 111 U/L (46-116) Total Protein 7.8 G/DL (6.4-8.2) 7.4 G/DL (6.4-8.2) Albumin 2.0 G/DL (3.4-5.0) 1.9 G/DL (3.4-5.0) Globulin 5.8 g/dL 5.5 g/dL Albumin/Globulin Ratio 0.3 (1.0-2.7) 0.3 (1.0-2.7) Differential Total Cells Counted 100 Neutrophils % (Manual) 86 % (45-75) Lymphocytes % (Manual) 7 % (20-45) Monocytes % (Manual) 7 % (1-10) Eosinophils % (Manual) 0 % (0-3) Basophils % (Manual) 0 % (0-2) Band Neutrophils 0 % (0-8) Platelet Estimate Decreased Platelet Morphology Normal Anisocytosis 1+ Height (Feet): 5 Height (Inches): 1.00 Weight (Pounds): 289 Objective Physical Exam: Vitals: reviewed General: NAD HEENT: nc, at Neck: supple Chest: clear breath sounds bilaterally Cardiovascular: RRR, no s3, s4 EXT ++ Significant edema and erythema bilateral lower extremity, patient also has blistering on both feet given the edema, whittish overcrust/crusting++ Neurologic: alert, oriented x3 Skin: other - As above Brett Mcclain MD Mar 05, 2020 09:52
--- NOTE | 2020-03-05 11:31 | General Progress Note ---
Assessment/Plan Status: progressing Assessment/Plan: macrocytic anemia elevated LFTS cirrhosis cellulitis elevated Ammonia levels abd us>> reviewed lactulose and Xifaxan fu stool ob>>>neg s/p one unit PRBC GI procedures if needed abx per id hepatitis panel>>>>>positive for hep C>>> needs out patient fu replace K will fu Subjective Allergies: Coded Allergies: No Known Allergies (Unverified , 02/29/20) Objective Last 24 Hour Vital Signs Date Time Temp Pulse Resp B/P (MAP) Pulse Ox O2 Delivery O2 Flow Rate FiO2 03/05/20 04:43 99.0 73 22 143/79 (100) 94 03/05/20 04:37 99.0 03/05/20 04:07 100.0 03/05/20 00:00 98.4 69 22 130/72 (91) 94 03/04/20 21:10 Nasal Cannula 2.0 03/04/20 20:00 97.7 70 18 118/50 (72) 97 03/04/20 16:00 98.6 64 20 120/68 (85) 94 03/04/20 12:00 97.9 64 20 119/66 (83) 93 Intake and Output 03/04/20 03/05/20 19:00 07:00 Intake Total 840 ml Balance 840 ml Intake Oral 840 ml Laboratory Tests 03/05/20 07:18: White Blood Count 3.8L, Red Blood Count 2.40L, Hemoglobin 8.2L, Hematocrit 24.0L , Mean Corpuscular Volume 100H, Mean Corpuscular Hemoglobin 34.3H, Mean Corpuscular Hemoglobin Concent 34.3, Red Cell Distribution Width 17.7H, Platelet Count 149L, Mean Platelet Volume 5.0L, Neutrophils (%) (Auto) 57.0, Lymphocytes (%) (Auto) 25.3, Monocytes (%) (Auto) 8.3, Eosinophils (%) (Auto) 8.2H, Basophils (%) (Auto) 1.2, Sodium Level 139, Potassium Level 3.2L, Chloride Level 106, Carbon Dioxide Level 26, Anion Gap 7, Blood Urea Nitrogen 4L , Creatinine 0.7, Estimat Glomerular Filtration Rate > 60, Glucose Level 91, Calcium Level 7.2L Height (Feet): 5 Height (Inches): 1.00 Weight (Pounds): 289 General Appearance: no apparent distress EENT: normal ENT inspection Neck: supple Cardiovascular: normal rate Respiratory/Chest: decreased breath sounds Abdomen: normal bowel sounds, non tender, soft Extremities: non-tender Tam Spicer MD Mar 05, 2020 11:31
[2020-03-05 12:00] VITALS: BP 140/80
--- NOTE | 2020-03-05 13:35 | Surgery Progress Note ---
Surgery Progress Note Subjective Additional Comments states she is well labs noted is worried about COVID Objective Last 24 Hour Vital Signs Date Time Temp Pulse Resp B/P (MAP) Pulse Ox O2 Delivery O2 Flow Rate FiO2 03/05/20 12:00 98.0 77 20 140/80 (100) 96 03/05/20 08:00 98.6 78 18 115/65 (82) 97 03/05/20 04:43 99.0 73 22 143/79 (100) 94 03/05/20 04:37 99.0 03/05/20 04:07 100.0 03/05/20 00:00 98.4 69 22 130/72 (91) 94 03/04/20 21:10 Nasal Cannula 2.0 03/04/20 20:00 97.7 70 18 118/50 (72) 97 03/04/20 16:00 98.6 64 20 120/68 (85) 94 I&O Intake and Output 03/04/20 03/05/20 19:00 07:00 Intake Total 840 ml Balance 840 ml Intake Oral 840 ml Dressing: dry Wound: clean Cardiovascular: RSR Respiratory: clear Abdomen: soft, non-tender, present bowel sounds Extremities: edema, no tenderness, no cyanosis Laboratory Tests Test 03/05/20 07:18 White Blood Count 3.8 K/UL (4.8-10.8) L Red Blood Count 2.40 M/UL (4.20-5.40) L Hemoglobin 8.2 G/DL (12.0-16.0) L Hematocrit 24.0 % (37.0-47.0) L Mean Corpuscular Volume 100 FL (80-99) H Mean Corpuscular Hemoglobin 34.3 PG (27.0-31.0) H Mean Corpuscular Hemoglobin Concent 34.3 G/DL (32.0-36.0) Red Cell Distribution Width 17.7 % (11.6-14.8) H Platelet Count 149 K/UL (150-450) L Mean Platelet Volume 5.0 FL (6.5-10.1) L Neutrophils (%) (Auto) 57.0 % (45.0-75.0) Lymphocytes (%) (Auto) 25.3 % (20.0-45.0) Monocytes (%) (Auto) 8.3 % (1.0-10.0) Eosinophils (%) (Auto) 8.2 % (0.0-3.0) H Basophils (%) (Auto) 1.2 % (0.0-2.0) Sodium Level 139 MMOL/L (136-145) Potassium Level 3.2 MMOL/L (3.5-5.1) L Chloride Level 106 MMOL/L (98-107) Carbon Dioxide Level 26 MMOL/L (21-32) Anion Gap 7 mmol/L (5-15) Blood Urea Nitrogen 4 mg/dL (7-18) L Creatinine 0.7 MG/DL (0.55-1.30) Estimat Glomerular Filtration Rate > 60 mL/min (>60) Glucose Level 91 MG/DL (74-106) Calcium Level 7.2 MG/DL (8.5-10.1) L Plan Problems: (1) Cellulitis Assessment & Plan: bilateral lower extremity cellulitis / edema chronic venous status changes dermatitis no abscess no purulent drainage ulcerations forming. keep lower extremity elevated while in bed apply skin protectant / moisturizing cream daily okay to shower okay to wrap soft after cream abx as per ID for cellulitis okay for diet duplex ordered trend labs will follow with recs thank you No evidence of deep venous thrombosis involving the visualized veins of the RIGHT lower extremity. refused eval of left JoséTheron palacios Mar 05, 2020 13:35
--- NOTE | 2020-03-05 15:31 | Infectious Diseases Prog Note ---
Assessment/Plan Assessment/Plan IMPRESSION: 1. Bilateral leg cellulitis,Pseudomonas in culture 2. Anemia. 3. Slight elevation in transaminase level. 4. Thrombocytopenia. 5. Homeless 6. Morbid obesity. 7. Cirrhosis RECOMMENDATION: continue Meropenem Subjective ROS Limited/Unobtainable: Yes Constitutional: Reports: fever, other - low grade in am Allergies: Coded Allergies: No Known Allergies (Unverified , 02/29/20) Objective Vital Signs Last 24 Hour Vital Signs Date Time Temp Pulse Resp B/P (MAP) Pulse Ox O2 Delivery O2 Flow Rate FiO2 03/05/20 12:00 98.0 77 20 140/80 (100) 96 03/05/20 09:00 Nasal Cannula 2.0 03/05/20 08:00 98.6 78 18 115/65 (82) 97 03/05/20 04:43 99.0 73 22 143/79 (100) 94 03/05/20 04:37 99.0 03/05/20 04:07 100.0 03/05/20 00:00 98.4 69 22 130/72 (91) 94 03/04/20 21:10 Nasal Cannula 2.0 03/04/20 20:00 97.7 70 18 118/50 (72) 97 03/04/20 16:00 98.6 64 20 120/68 (85) 94 Height (Feet): 5 Height (Inches): 1.00 Weight (Pounds): 289 HEENT: mucous membranes moist Respiratory/Chest: lungs clear Cardiovascular: normal rate Abdomen: soft, non tender Extremities: other - edema Skin: ulcers, other - feet Neurologic/Psychiatric: other - sleeping Laboratory Tests Test 03/05/20 07:18 White Blood Count 3.8 K/UL (4.8-10.8) L Red Blood Count 2.40 M/UL (4.20-5.40) L Hemoglobin 8.2 G/DL (12.0-16.0) L Hematocrit 24.0 % (37.0-47.0) L Mean Corpuscular Volume 100 FL (80-99) H Mean Corpuscular Hemoglobin 34.3 PG (27.0-31.0) H Mean Corpuscular Hemoglobin Concent 34.3 G/DL (32.0-36.0) Red Cell Distribution Width 17.7 % (11.6-14.8) H Platelet Count 149 K/UL (150-450) L Mean Platelet Volume 5.0 FL (6.5-10.1) L Neutrophils (%) (Auto) 57.0 % (45.0-75.0) Lymphocytes (%) (Auto) 25.3 % (20.0-45.0) Monocytes (%) (Auto) 8.3 % (1.0-10.0) Eosinophils (%) (Auto) 8.2 % (0.0-3.0) H Basophils (%) (Auto) 1.2 % (0.0-2.0) Sodium Level 139 MMOL/L (136-145) Potassium Level 3.2 MMOL/L (3.5-5.1) L Chloride Level 106 MMOL/L (98-107) Carbon Dioxide Level 26 MMOL/L (21-32) Anion Gap 7 mmol/L (5-15) Blood Urea Nitrogen 4 mg/dL (7-18) L Creatinine 0.7 MG/DL (0.55-1.30) Estimat Glomerular Filtration Rate > 60 mL/min (>60) Glucose Level 91 MG/DL (74-106) Calcium Level 7.2 MG/DL (8.5-10.1) L Current Medications Medications (Trade) Dose Ordered Sig/Dolores Route PRN Reason Start Time Stop Time Status Last Admin Dose Admin Acetaminophen (Tylenol) 650 mg Q4H PRN ORAL Mild Pain (Pain Scale 1-3) 02/29/20 20:00 03/30/20 19:59 03/02/20 18:24 Acetaminophen (Tylenol) 650 mg Q4H PRN ORAL Temp >100 03/02/20 22:30 04/01/20 22:29 03/05/20 03:43 Diphenhydramine HCl (Benadryl) 25 mg Q4H PRN ORAL moderate itching 02/29/20 20:00 03/30/20 19:59 03/05/20 03:37 Diphenhydramine HCl (Benadryl) 50 mg Q4H PRN ORAL SEVERE ITCHING 02/29/20 20:00 03/30/20 19:59 03/05/20 10:07 Lactulose (Cephulac) 10 gm THREE TIMES A DAY ORAL 03/02/20 13:00 04/01/20 12:59 03/04/20 17:05 Lorazepam (Ativan) 2 mg Q6H PRN ORAL Anxiety 03/02/20 18:15 03/09/20 18:14 03/02/20 21:01 Meropenem 1 gm/ Sodium Chloride 55 ml @ 110 mls/hr Q8HR IVPB 03/03/20 14:00 03/08/20 13:59 03/05/20 15:08 Mirtazapine (Remeron) 7.5 mg BEDTIME PRN ORAL SLEEP 03/02/20 18:00 05/31/20 17:59 03/03/20 22:57 Morphine Sulfate (Morphine Sulfate) 2 mg Q4H PRN IVP For Pain 4-03/01/20 20:24 03/08/20 20:23 03/05/20 13:07 Rifaximin (Xifaxan) 550 mg EVERY 12 HOURS ORAL 03/02/20 21:00 03/09/20 20:59 03/05/20 08:33 Jonathon Shah MD Mar 05, 2020 15:31
[2020-03-05 16:00] VITALS: BP 142/80
--- NOTE | 2020-03-05 18:46 | General Progress Note ---
Assessment/Plan Problem List: (1) Cellulitis ICD Codes: L03.90 - Cellulitis, unspecified SNOMED: [id number] Qualifiers: Qualified Codes: L03.119 - Cellulitis of unspecified part of limb Status: progressing Assessment/Plan: bilat cellulitis low k anemia vitals stable for psuedomonas dc to any snf for iv abx Subjective ROS Limited/Unobtainable: Yes Allergies: Coded Allergies: No Known Allergies (Unverified , 02/29/20) Objective Last 24 Hour Vital Signs Date Time Temp Pulse Resp B/P (MAP) Pulse Ox O2 Delivery O2 Flow Rate FiO2 03/05/20 16:00 97.5 71 16 142/80 (100) 93 03/05/20 12:00 98.0 77 20 140/80 (100) 96 03/05/20 09:00 Nasal Cannula 2.0 03/05/20 08:00 98.6 78 18 115/65 (82) 97 03/05/20 04:43 99.0 73 22 143/79 (100) 94 03/05/20 04:37 99.0 03/05/20 04:07 100.0 03/05/20 00:00 98.4 69 22 130/72 (91) 94 03/04/20 21:10 Nasal Cannula 2.0 03/04/20 20:00 97.7 70 18 118/50 (72) 97 Intake and Output 03/04/20 03/05/20 19:00 07:00 Intake Total 840 ml Balance 840 ml Intake Oral 840 ml Laboratory Tests 03/05/20 07:18: White Blood Count 3.8L, Red Blood Count 2.40L, Hemoglobin 8.2L, Hematocrit 24.0L , Mean Corpuscular Volume 100H, Mean Corpuscular Hemoglobin 34.3H, Mean Corpuscular Hemoglobin Concent 34.3, Red Cell Distribution Width 17.7H, Platelet Count 149L, Mean Platelet Volume 5.0L, Neutrophils (%) (Auto) 57.0, Lymphocytes (%) (Auto) 25.3, Monocytes (%) (Auto) 8.3, Eosinophils (%) (Auto) 8.2H, Basophils (%) (Auto) 1.2, Sodium Level 139, Potassium Level 3.2L, Chloride Level 106, Carbon Dioxide Level 26, Anion Gap 7, Blood Urea Nitrogen 4L , Creatinine 0.7, Estimat Glomerular Filtration Rate > 60, Glucose Level 91, Calcium Level 7.2L Height (Feet): 5 Height (Inches): 1.00 Weight (Pounds): 289 Celso Moreno MD Mar 05, 2020 18:46
[2020-03-05 20:00] VITALS: BP 139/68
--- NOTE | 2020-03-05 22:14 | Progress Note ---
DATE: 03/05/2020 SUBJECTIVE: Mental condition is unchanged since previous encounter. Compliant with medications, weak, and sleepy. No behavior issues noted. MENTAL STATUS EXAMINATION: The patient is alert, oriented. Mood is anxious. Affect is flat. Thought process, there is a paucity of thought content. Thought content, no suicidal or homicidal ideation. ASSESSMENT: Stable. PLAN: We will continue current psychotropic medications. Justice Manriquez M.D. DR: Jing JOB#: [id number] CC:
[2020-03-06] VITALS: BP 140/74
[2020-03-06 04:00] VITALS: BP 112/66
[2020-03-06] MEDS: DiphenhydrAMINE 25mg Tab ORAL PRN ×2 (05:03→18:45)
[2020-03-06] MEDS: Morphine Sulfate 2mg/ml Inj(IV/IM USE ONLY) IVP PRN ×2 (05:03→18:45)
[2020-03-06] MEDS: Meropenem 1 GM in NS 55 ML IVPB SCH ×3 (05:04→22:24)
[2020-03-06 07:11] LABS: HEMATOCRIT 25.2 % (37.0-47.0); HEMOGLOBIN 8.7 G/DL (12.0-16.0); MEAN CORPUSCULAR VOLUME 98 FL (80-99); PLATELET COUNT 145 K/UL (150-450); RED BLOOD COUNT 2.56 M/UL (4.20-5.40); RED CELL DISTRIBUTION WIDTH 16.9 % (11.6-14.8); WHITE BLOOD COUNT 3.4 K/UL (4.8-10.8)
[2020-03-06 07:13] LABS: ALANINE AMINOTRANSFERASE 23 U/L (12-78); ALBUMIN 1.8 G/DL (3.4-5.0); ALBUMIN/GLOBULIN RATIO 0.3 (1.0-2.7); ALKALINE PHOSPHATASE 104 U/L (46-116); ANION GAP 6 mmol/L (5-15); ASPARTATE AMINO TRANSFERASE 58 U/L (15-37); BILIRUBIN,TOTAL 0.6 MG/DL (0.2-1.0); BLOOD UREA NITROGEN 4 mg/dL (7-18); CALCIUM 7.3 MG/DL (8.5-10.1); CARBON DIOXIDE 26 MMOL/L (21-32); CHLORIDE 107 MMOL/L (98-107); CREATININE 0.7 MG/DL (0.55-1.30); POTASSIUM 3.6 MMOL/L (3.5-5.1); SODIUM 139 MMOL/L (136-145)
[2020-03-06 08:00] VITALS: BP 106/62
[2020-03-06] MEDS: Lactulose 10gm/15ml UDC ORAL SCH ×3 (09:00→18:00)
--- NOTE | 2020-03-06 09:04 | General Progress Note ---
Assessment/Plan Status: progressing Assessment/Plan: macrocytic anemia elevated LFTS cirrhosis cellulitis elevated Ammonia levels abd us>> reviewed lactulose and Xifaxan fu stool ob>>>neg s/p one unit PRBC GI procedures if needed abx per id hepatitis panel>>>>>positive for hep C>>> needs out patient fu nutrition eval appreciated>>> will change diet to cardiac will fu Subjective ROS Limited/Unobtainable: Yes Allergies: Coded Allergies: No Known Allergies (Unverified , 02/29/20) Objective Last 24 Hour Vital Signs Date Time Temp Pulse Resp B/P (MAP) Pulse Ox O2 Delivery O2 Flow Rate FiO2 03/06/20 04:00 98.6 71 18 112/66 (81) 91 03/06/20 00:56 99.6 03/06/20 00:00 100.6 70 18 140/74 (96) 91 03/05/20 21:00 Nasal Cannula 2.0 03/05/20 20:00 98.1 71 16 139/68 (91) 92 03/05/20 16:00 97.5 71 16 142/80 (100) 93 03/05/20 12:00 98.0 77 20 140/80 (100) 96 Intake and Output 03/05/20 03/06/20 19:00 07:00 Intake Total 400 ml Balance 400 ml Intake Oral 400 ml Laboratory Tests 03/06/20 05:30: White Blood Count 3.4L, Red Blood Count 2.56L, Hemoglobin 8.7L, Hematocrit 25.2L , Mean Corpuscular Volume 98, Mean Corpuscular Hemoglobin 34.1H, Mean Corpuscular Hemoglobin Concent 34.6, Red Cell Distribution Width 16.9H, Platelet Count 145L, Mean Platelet Volume 5.4L, Neutrophils (%) (Auto) , Lymphocytes (%) (Auto) , Monocytes (%) (Auto) , Eosinophils (%) (Auto) , Basophils (%) (Auto) , Differential Total Cells Counted 100, Neutrophils % ( Manual) 66, Lymphocytes % (Manual) 17L, Monocytes % (Manual) 10, Eosinophils % ( Manual) 6H, Basophils % (Manual) 1, Band Neutrophils 0, Platelet Estimate DecreasedL, Platelet Morphology Normal, Hypochromasia 2+, Anisocytosis 1+, Spherocytes 1+, Sodium Level 139, Potassium Level 3.6, Chloride Level 107, Carbon Dioxide Level 26, Anion Gap 6, Blood Urea Nitrogen 4L, Creatinine 0.7, Estimat Glomerular Filtration Rate > 60, Glucose Level 73L, Calcium Level 7.3L, Total Bilirubin 0.6, Aspartate Amino Transf (AST/SGOT) 58H, Alanine Aminotransferase (ALT/SGPT) 23, Alkaline Phosphatase 104, Total Protein 7.2, Albumin 1.8L, Globulin 5.4, Albumin/Globulin Ratio 0.3L Height (Feet): 5 Height (Inches): 1.00 Weight (Pounds): 289 General Appearance: no apparent distress EENT: normal ENT inspection Neck: supple Cardiovascular: regular rhythm Respiratory/Chest: decreased breath sounds Abdomen: normal bowel sounds, non tender, soft Tam Spicer MD Mar 06, 2020 09:04
--- NOTE | 2020-03-06 10:04 | Surgery Progress Note ---
Surgery Progress Note Subjective Additional Comments no acute events transferred to comfortable does not use pillows to elevate legs Objective Last 24 Hour Vital Signs Date Time Temp Pulse Resp B/P (MAP) Pulse Ox O2 Delivery O2 Flow Rate FiO2 03/06/20 04:00 98.6 71 18 112/66 (81) 91 03/06/20 00:56 99.6 03/06/20 00:00 100.6 70 18 140/74 (96) 91 03/05/20 21:00 Nasal Cannula 2.0 03/05/20 20:00 98.1 71 16 139/68 (91) 92 03/05/20 16:00 97.5 71 16 142/80 (100) 93 03/05/20 12:00 98.0 77 20 140/80 (100) 96 I&O Intake and Output 03/05/20 03/06/20 19:00 07:00 Intake Total 400 ml Balance 400 ml Intake Oral 400 ml Dressing: dry Wound: other Drains: other Cardiovascular: RSR Respiratory: decreased breath sounds Abdomen: soft, non-tender, present bowel sounds Extremities: no tenderness, no cyanosis Laboratory Tests Test 03/06/20 05:30 White Blood Count 3.4 K/UL (4.8-10.8) L Red Blood Count 2.56 M/UL (4.20-5.40) L Hemoglobin 8.7 G/DL (12.0-16.0) L Hematocrit 25.2 % (37.0-47.0) L Mean Corpuscular Volume 98 FL (80-99) Mean Corpuscular Hemoglobin 34.1 PG (27.0-31.0) H Mean Corpuscular Hemoglobin Concent 34.6 G/DL (32.0-36.0) Red Cell Distribution Width 16.9 % (11.6-14.8) H Platelet Count 145 K/UL (150-450) L Mean Platelet Volume 5.4 FL (6.5-10.1) L Neutrophils (%) (Auto) % (45.0-75.0) Lymphocytes (%) (Auto) % (20.0-45.0) Monocytes (%) (Auto) % (1.0-10.0) Eosinophils (%) (Auto) % (0.0-3.0) Basophils (%) (Auto) % (0.0-2.0) Differential Total Cells Counted 100 Neutrophils % (Manual) 66 % (45-75) Lymphocytes % (Manual) 17 % (20-45) L Monocytes % (Manual) 10 % (1-10) Eosinophils % (Manual) 6 % (0-3) H Basophils % (Manual) 1 % (0-2) Band Neutrophils 0 % (0-8) Platelet Estimate Decreased L Platelet Morphology Normal Hypochromasia 2+ Anisocytosis 1+ Spherocytes 1+ Sodium Level 139 MMOL/L (136-145) Potassium Level 3.6 MMOL/L (3.5-5.1) Chloride Level 107 MMOL/L (98-107) Carbon Dioxide Level 26 MMOL/L (21-32) Anion Gap 6 mmol/L (5-15) Blood Urea Nitrogen 4 mg/dL (7-18) L Creatinine 0.7 MG/DL (0.55-1.30) Estimat Glomerular Filtration Rate > 60 mL/min (>60) Glucose Level 73 MG/DL (74-106) L Calcium Level 7.3 MG/DL (8.5-10.1) L Total Bilirubin 0.6 MG/DL (0.2-1.0) Aspartate Amino Transf (AST/SGOT) 58 U/L (15-37) H Alanine Aminotransferase (ALT/SGPT) 23 U/L (12-78) Alkaline Phosphatase 104 U/L (46-116) Total Protein 7.2 G/DL (6.4-8.2) Albumin 1.8 G/DL (3.4-5.0) L Globulin 5.4 g/dL Albumin/Globulin Ratio 0.3 (1.0-2.7) L Plan Problems: (1) Cellulitis Assessment & Plan: bilateral lower extremity cellulitis / edema chronic venous status changes dermatitis no abscess no purulent drainage ulcerations forming. keep lower extremity elevated while in bed apply skin protectant / moisturizing cream daily okay to shower okay to wrap soft after cream abx as per ID for cellulitis okay for diet duplex ordered trend labs will follow with recs thank you No evidence of deep venous thrombosis involving the visualized veins of the RIGHT lower extremity. refused eval of left Theron Sotomayor Mar 06, 2020 10:04
[2020-03-06 12:00] VITALS: BP 127/65
--- NOTE | 2020-03-06 12:33 | Infectious Diseases Prog Note ---
Assessment/Plan Assessment/Plan IMPRESSION: 1. Bilateral leg cellulitis,Pseudomonas in culture 2. Anemia. 3. Slight elevation in transaminase level. 4. Thrombocytopenia. 5. Homeless 6. Morbid obesity. 7. Cirrhosis RECOMMENDATION: continue Meropenem Subjective ROS Limited/Unobtainable: No Constitutional: Reports: fever, other - low grade fever in am Allergies: Coded Allergies: No Known Allergies (Unverified , 02/29/20) Objective Vital Signs Last 24 Hour Vital Signs Date Time Temp Pulse Resp B/P (MAP) Pulse Ox O2 Delivery O2 Flow Rate FiO2 03/06/20 09:00 Nasal Cannula 2.0 03/06/20 08:00 97.7 62 18 106/62 (77) 92 03/06/20 04:00 98.6 71 18 112/66 (81) 91 03/06/20 00:56 99.6 03/06/20 00:00 100.6 70 18 140/74 (96) 91 03/05/20 21:00 Nasal Cannula 2.0 03/05/20 20:00 98.1 71 16 139/68 (91) 92 03/05/20 16:00 97.5 71 16 142/80 (100) 93 Height (Feet): 5 Height (Inches): 1.00 Weight (Pounds): 289 General Appearance: no acute distress HEENT: mucous membranes moist Respiratory/Chest: lungs clear Cardiovascular: normal rate Abdomen: soft, non tender Extremities: other - edema of legs Skin: ulcers, other - feet Neurologic/Psychiatric: alert, oriented x 3, responsive Laboratory Tests Test 03/06/20 05:30 White Blood Count 3.4 K/UL (4.8-10.8) L Red Blood Count 2.56 M/UL (4.20-5.40) L Hemoglobin 8.7 G/DL (12.0-16.0) L Hematocrit 25.2 % (37.0-47.0) L Mean Corpuscular Volume 98 FL (80-99) Mean Corpuscular Hemoglobin 34.1 PG (27.0-31.0) H Mean Corpuscular Hemoglobin Concent 34.6 G/DL (32.0-36.0) Red Cell Distribution Width 16.9 % (11.6-14.8) H Platelet Count 145 K/UL (150-450) L Mean Platelet Volume 5.4 FL (6.5-10.1) L Neutrophils (%) (Auto) % (45.0-75.0) Lymphocytes (%) (Auto) % (20.0-45.0) Monocytes (%) (Auto) % (1.0-10.0) Eosinophils (%) (Auto) % (0.0-3.0) Basophils (%) (Auto) % (0.0-2.0) Differential Total Cells Counted 100 Neutrophils % (Manual) 66 % (45-75) Lymphocytes % (Manual) 17 % (20-45) L Monocytes % (Manual) 10 % (1-10) Eosinophils % (Manual) 6 % (0-3) H Basophils % (Manual) 1 % (0-2) Band Neutrophils 0 % (0-8) Platelet Estimate Decreased L Platelet Morphology Normal Hypochromasia 2+ Anisocytosis 1+ Spherocytes 1+ Sodium Level 139 MMOL/L (136-145) Potassium Level 3.6 MMOL/L (3.5-5.1) Chloride Level 107 MMOL/L (98-107) Carbon Dioxide Level 26 MMOL/L (21-32) Anion Gap 6 mmol/L (5-15) Blood Urea Nitrogen 4 mg/dL (7-18) L Creatinine 0.7 MG/DL (0.55-1.30) Estimat Glomerular Filtration Rate > 60 mL/min (>60) Glucose Level 73 MG/DL (74-106) L Calcium Level 7.3 MG/DL (8.5-10.1) L Total Bilirubin 0.6 MG/DL (0.2-1.0) Aspartate Amino Transf (AST/SGOT) 58 U/L (15-37) H Alanine Aminotransferase (ALT/SGPT) 23 U/L (12-78) Alkaline Phosphatase 104 U/L (46-116) Total Protein 7.2 G/DL (6.4-8.2) Albumin 1.8 G/DL (3.4-5.0) L Globulin 5.4 g/dL Albumin/Globulin Ratio 0.3 (1.0-2.7) L Current Medications Medications (Trade) Dose Ordered Sig/Dolores Route PRN Reason Start Time Stop Time Status Last Admin Dose Admin Acetaminophen (Tylenol) 650 mg Q4H PRN ORAL Mild Pain (Pain Scale 1-3) 02/29/20 20:00 03/30/20 19:59 03/06/20 00:26 Acetaminophen (Tylenol) 650 mg Q4H PRN ORAL Temp >100 03/02/20 22:30 04/01/20 22:29 03/05/20 03:43 Diphenhydramine HCl (Benadryl) 25 mg Q4H PRN ORAL moderate itching 02/29/20 20:00 03/30/20 19:59 03/06/20 05:03 Diphenhydramine HCl (Benadryl) 50 mg Q4H PRN ORAL SEVERE ITCHING 02/29/20 20:00 03/30/20 19:59 03/05/20 10:07 Lactulose (Cephulac) 10 gm THREE TIMES A DAY ORAL 03/02/20 13:00 04/01/20 12:59 03/04/20 17:05 Lorazepam (Ativan) 2 mg Q6H PRN ORAL Anxiety 03/02/20 18:15 03/09/20 18:14 03/02/20 21:01 Meropenem 1 gm/ Sodium Chloride 55 ml @ 110 mls/hr Q8HR IVPB 03/03/20 14:00 03/08/20 13:59 03/06/20 05:04 Mirtazapine (Remeron) 7.5 mg BEDTIME PRN ORAL SLEEP 03/02/20 18:00 05/31/20 17:59 03/03/20 22:57 Morphine Sulfate (Morphine Sulfate) 2 mg Q4H PRN IVP For Pain 4-03/01/20 20:24 03/08/20 20:23 03/06/20 05:03 Rifaximin (Xifaxan) 550 mg EVERY 12 HOURS ORAL 03/02/20 21:00 03/09/20 20:59 03/06/20 09:07 Jonathon Shah MD Mar 06, 2020 12:33
--- NOTE | 2020-03-06 14:20 | Hematology/Onc Progress Note ---
Assessment/Plan Assessment/Plan Assessment and Recs # Pancytopenia -- multiple etiologies could be related to underlying liver disease, medication-induced, infection versus viral syndrome versus underlying bone marrow cause, in this case, has severe liver disease and cirrhosis --> peripheral smear has been ordered and does not show significant abnormalities and none noted --> Medications have been reviewed --> Continue to monitor for improvement, trend cbc --> Hep panel and HIV are both negative --> US abd ordered to r/o cirrhosis and hepatosplenomegaly ->CIRRHOSIS IS NOTED , LARGE SPLEEN --> reverse isolation if ANC is <2000 --> Give neupogen if ANC <1000 --> Transfuse if hgb <7, with 1 unit prbc --> anemia panel ordered as well-->CW acd --> hgb trend 7-->7.1-->8.4-->8.2 -->8.7 --> plt 145k --> abx: sameer/rifaximin # Cellulitis of the lower extremities --> continue abx as needed as per id --> Started on IV antibiotics --> as per surg recs, wound care # Elevated LFTS --> as per gi --> due to cirrhosis The timing of this note does not necessarily reflect the time of the patient was seen. Greatly appreciate consultation. Subjective Constitutional: Denies: no symptoms, chills, fever, malaise, weakness, other HEENT: Denies: no symptoms, eye pain, blurred vision, tearing, double vision, ear pain, ear discharge, nose pain, nose congestion, throat pain, throat swelling, mouth pain, mouth swelling, other Cardiovascular: Denies: no symptoms, chest pain, edema, irregular heart rate, lightheadedness, palpitations, syncope, other Respiratory: Denies: no symptoms, cough, shortness of breath, SOB with excertion, SOB at rest, sputum, wheezing, other Gastrointestinal/Abdominal: Denies: no symptoms, abdomen distended, abdominal pain, black stools, tarry stools, blood in stool, constipated, diarrhea, difficulty swallowing, nausea, poor appetite, poor fluid intake, rectal bleeding , vomiting, other Genitourinary: Denies: no symptoms, burning, discharge, frequency, flank pain, hematuria, incontinence, pain, urgency, other Neurologic/Psychiatric: Denies: no symptoms, anxiety, depressed, emotional problems, headache, numbness, paresthesia, pre-existing deficit, seizure, tingling, tremors, weakness, other Endocrine: Denies: no symptoms, excessive sweating, flushing, intolerance to cold, intolerance to heat, increased hunger, increased thirst, increased urine, unexplained weight gain, unexplained weight loss, other Allergies: Coded Allergies: No Known Allergies (Unverified , 02/29/20) Subjective 03/02 no events, no bleeding, hgb 7.1, no hemolysis 03/03 s/p blood, hgb improved to 8.4, stool ob negtive, on abx 03/05 asleep, no acute distress, hgb 8.2 03/06 remains comfortable, on abx, plt remains low Objective Objective Current Medications Medications (Trade) Dose Ordered Sig/Dolores Route PRN Reason Start Time Stop Time Status Last Admin Dose Admin Acetaminophen (Tylenol) 650 mg Q4H PRN ORAL Mild Pain (Pain Scale 1-3) 02/29/20 20:00 03/30/20 19:59 03/06/20 00:26 Acetaminophen (Tylenol) 650 mg Q4H PRN ORAL Temp >100 03/02/20 22:30 04/01/20 22:29 03/05/20 03:43 Diphenhydramine HCl (Benadryl) 25 mg Q4H PRN ORAL moderate itching 02/29/20 20:00 03/30/20 19:59 03/06/20 05:03 Diphenhydramine HCl (Benadryl) 50 mg Q4H PRN ORAL SEVERE ITCHING 02/29/20 20:00 03/30/20 19:59 03/05/20 10:07 Lactulose (Cephulac) 10 gm THREE TIMES A DAY ORAL 03/02/20 13:00 04/01/20 12:59 03/04/20 17:05 Lorazepam (Ativan) 2 mg Q6H PRN ORAL Anxiety 03/02/20 18:15 03/09/20 18:14 03/02/20 21:01 Meropenem 1 gm/ Sodium Chloride 55 ml @ 110 mls/hr Q8HR IVPB 03/03/20 14:00 03/08/20 13:59 03/06/20 14:10 Mirtazapine (Remeron) 7.5 mg BEDTIME PRN ORAL SLEEP 03/02/20 18:00 05/31/20 17:59 03/03/20 22:57 Morphine Sulfate (Morphine Sulfate) 2 mg Q4H PRN IVP For Pain 4-10 03/01/20 20:24 03/08/20 20:23 03/06/20 05:03 Rifaximin (Xifaxan) 550 mg EVERY 12 HOURS ORAL 03/02/20 21:00 03/09/20 20:59 03/06/20 09:07 Last 24 Hour Vital Signs Date Time Temp Pulse Resp B/P (MAP) Pulse Ox O2 Delivery O2 Flow Rate FiO2 03/06/20 12:00 97.9 64 20 127/65 (85) 90 03/06/20 09:00 Nasal Cannula 2.0 03/06/20 08:00 97.7 62 18 106/62 (77) 92 03/06/20 04:00 98.6 71 18 112/66 (81) 91 03/06/20 00:56 99.6 03/06/20 00:00 100.6 70 18 140/74 (96) 91 03/05/20 21:00 Nasal Cannula 2.0 03/05/20 20:00 98.1 71 16 139/68 (91) 92 03/05/20 16:00 97.5 71 16 142/80 (100) 93 03/05/20 12:00 98.0 77 20 140/80 (100) 96 03/05/20 09:00 Nasal Cannula 2.0 03/05/20 08:00 98.6 78 18 115/65 (82) 97 03/05/20 04:43 99.0 73 22 143/79 (100) 94 03/05/20 04:37 99.0 03/05/20 04:07 100.0 03/05/20 00:00 98.4 69 22 130/72 (91) 94 03/04/20 21:10 Nasal Cannula 2.0 03/04/20 20:00 97.7 70 18 118/50 (72) 97 03/04/20 16:00 98.6 64 20 120/68 (85) 94 Intake and Output 03/05/20 03/06/20 19:00 07:00 Intake Total 400 ml Balance 400 ml Intake Oral 400 ml Labs Test 03/04/20 06:30 03/05/20 07:18 03/06/20 05:30 White Blood Count 4.2 K/UL (4.8-10.8) 3.8 K/UL (4.8-10.8) 3.4 K/UL (4.8-10.8) Red Blood Count 2.38 M/UL (4.20-5.40) 2.40 M/UL (4.20-5.40) 2.56 M/UL (4.20-5.40) Hemoglobin 8.1 G/DL (12.0-16.0) 8.2 G/DL (12.0-16.0) 8.7 G/DL (12.0-16.0) Hematocrit 23.6 % (37.0-47.0) 24.0 % (37.0-47.0) 25.2 % (37.0-47.0) Mean Corpuscular Volume 99 FL (80-99) 100 FL (80-99) 98 FL (80-99) Mean Corpuscular Hemoglobin 34.1 PG (27.0-31.0) 34.3 PG (27.0-31.0) 34.1 PG (27.0-31.0) Mean Corpuscular Hemoglobin Concent 34.5 G/DL (32.0-36.0) 34.3 G/DL (32.0-36.0) 34.6 G/DL (32.0-36.0) Red Cell Distribution Width 16.7 % (11.6-14.8) 17.7 % (11.6-14.8) 16.9 % (11.6-14.8) Platelet Count 119 K/UL (150-450) 149 K/UL (150-450) 145 K/UL (150-450) Mean Platelet Volume 5.4 FL (6.5-10.1) 5.0 FL (6.5-10.1) 5.4 FL (6.5-10.1) Neutrophils (%) (Auto) % (45.0-75.0) 57.0 % (45.0-75.0) % (45.0-75.0) Lymphocytes (%) (Auto) % (20.0-45.0) 25.3 % (20.0-45.0) % (20.0-45.0) Monocytes (%) (Auto) % (1.0-10.0) 8.3 % (1.0-10.0) % (1.0-10.0) Eosinophils (%) (Auto) % (0.0-3.0) 8.2 % (0.0-3.0) % (0.0-3.0) Basophils (%) (Auto) % (0.0-2.0) 1.2 % (0.0-2.0) % (0.0-2.0) Differential Total Cells Counted 100 100 Neutrophils % (Manual) 86 % (45-75) 66 % (45-75) Lymphocytes % (Manual) 7 % (20-45) 17 % (20-45) Monocytes % (Manual) 7 % (1-10) 10 % (1-10) Eosinophils % (Manual) 0 % (0-3) 6 % (0-3) Basophils % (Manual) 0 % (0-2) 1 % (0-2) Band Neutrophils 0 % (0-8) 0 % (0-8) Platelet Estimate Decreased Decreased Platelet Morphology Normal Normal Anisocytosis 1+ 1+ Sodium Level 135 MMOL/L (136-145) 139 MMOL/L (136-145) 139 MMOL/L (136-145) Potassium Level 3.3 MMOL/L (3.5-5.1) 3.2 MMOL/L (3.5-5.1) 3.6 MMOL/L (3.5-5.1) Chloride Level 103 MMOL/L (98-107) 106 MMOL/L (98-107) 107 MMOL/L (98-107) Carbon Dioxide Level 27 MMOL/L (21-32) 26 MMOL/L (21-32) 26 MMOL/L (21-32) Anion Gap 5 mmol/L (5-15) 7 mmol/L (5-15) 6 mmol/L (5-15) Blood Urea Nitrogen 7 mg/dL (7-18) 4 mg/dL (7-18) 4 mg/dL (7-18) Creatinine 0.7 MG/DL (0.55-1.30) 0.7 MG/DL (0.55-1.30) 0.7 MG/DL (0.55-1.30) Estimat Glomerular Filtration Rate > 60 mL/min (>60) > 60 mL/min (>60) > 60 mL/min (>60) Glucose Level 72 MG/DL (74-106) 91 MG/DL (74-106) 73 MG/DL (74-106) Calcium Level 7.7 MG/DL (8.5-10.1) 7.2 MG/DL (8.5-10.1) 7.3 MG/DL (8.5-10.1) Total Bilirubin 0.6 MG/DL (0.2-1.0) 0.6 MG/DL (0.2-1.0) Aspartate Amino Transf (AST/SGOT) 51 U/L (15-37) 58 U/L (15-37) Alanine Aminotransferase (ALT/SGPT) 25 U/L (12-78) 23 U/L (12-78) Alkaline Phosphatase 111 U/L (46-116) 104 U/L (46-116) Total Protein 7.4 G/DL (6.4-8.2) 7.2 G/DL (6.4-8.2) Albumin 1.9 G/DL (3.4-5.0) 1.8 G/DL (3.4-5.0) Globulin 5.5 g/dL 5.4 g/dL Albumin/Globulin Ratio 0.3 (1.0-2.7) 0.3 (1.0-2.7) Hypochromasia 2+ Spherocytes 1+ Height (Feet): 5 Height (Inches): 1.00 Weight (Pounds): 289 Objective Physical Exam: Vitals: reviewed General: NAD HEENT: nc, at Neck: supple Chest: clear breath sounds bilaterally Cardiovascular: RRR, no s3, s4 EXT ++ Significant edema and erythema bilateral lower extremity, patient also has blistering on both feet given the edema, whittish overcrust/crusting++ Neurologic: alert, oriented x3 Skin: other - As above Brett Mcclain MD Mar 06, 2020 14:20
[2020-03-06 16:00] VITALS: BP 134/70
[2020-03-06 20:00] VITALS: BP 118/59
--- NOTE | 2020-03-06 21:56 | General Progress Note ---
Assessment/Plan Problem List: (1) Cellulitis ICD Codes: L03.90 - Cellulitis, unspecified SNOMED: [id number] Qualifiers: Qualified Codes: L03.119 - Cellulitis of unspecified part of limb Status: progressing Assessment/Plan: bilat cellulitis improving edema low k improved anemia for psuedomonas dc to any snf for iv abx Subjective ROS Limited/Unobtainable: Yes Allergies: Coded Allergies: No Known Allergies (Unverified , 02/29/20) Objective Last 24 Hour Vital Signs Date Time Temp Pulse Resp B/P (MAP) Pulse Ox O2 Delivery O2 Flow Rate FiO2 03/06/20 20:00 98.5 65 17 118/59 (78) 92 03/06/20 16:00 97.4 68 18 134/70 (91) 91 03/06/20 12:00 97.9 64 20 127/65 (85) 90 03/06/20 09:00 Nasal Cannula 2.0 03/06/20 08:00 97.7 62 18 106/62 (77) 92 03/06/20 04:00 98.6 71 18 112/66 (81) 91 03/06/20 00:56 99.6 03/06/20 00:00 100.6 70 18 140/74 (96) 91 Intake and Output 03/05/20 03/06/20 19:00 07:00 Intake Total 400 ml Balance 400 ml Intake Oral 400 ml Laboratory Tests 03/06/20 05:30: White Blood Count 3.4L, Red Blood Count 2.56L, Hemoglobin 8.7L, Hematocrit 25.2L , Mean Corpuscular Volume 98, Mean Corpuscular Hemoglobin 34.1H, Mean Corpuscular Hemoglobin Concent 34.6, Red Cell Distribution Width 16.9H, Platelet Count 145L, Mean Platelet Volume 5.4L, Neutrophils (%) (Auto) , Lymphocytes (%) (Auto) , Monocytes (%) (Auto) , Eosinophils (%) (Auto) , Basophils (%) (Auto) , Differential Total Cells Counted 100, Neutrophils % ( Manual) 66, Lymphocytes % (Manual) 17L, Monocytes % (Manual) 10, Eosinophils % ( Manual) 6H, Basophils % (Manual) 1, Band Neutrophils 0, Platelet Estimate DecreasedL, Platelet Morphology Normal, Hypochromasia 2+, Anisocytosis 1+, Spherocytes 1+, Sodium Level 139, Potassium Level 3.6, Chloride Level 107, Carbon Dioxide Level 26, Anion Gap 6, Blood Urea Nitrogen 4L, Creatinine 0.7, Estimat Glomerular Filtration Rate > 60, Glucose Level 73L, Calcium Level 7.3L, Total Bilirubin 0.6, Aspartate Amino Transf (AST/SGOT) 58H, Alanine Aminotransferase (ALT/SGPT) 23, Alkaline Phosphatase 104, Total Protein 7.2, Albumin 1.8L, Globulin 5.4, Albumin/Globulin Ratio 0.3L 03/06/20 21:25: Troponin I [Pending] Height (Feet): 5 Height (Inches): 1.00 Weight (Pounds): 289 Celso Moreno MD Mar 06, 2020 21:55
[2020-03-07 00:40] VITALS: BP 124/58
[2020-03-07 04:00] VITALS: BP 105/53
--- NOTE | 2020-03-07 04:00 | Progress Note ---
DATE: 02/29/2020 HISTORY OF PRESENT ILLNESS: The patient is doing well. No behavior issues noted. Sleeping adequately. Compliant. MENTAL STATUS EXAMINATION: Alert and oriented. Mood is neutral to anxious. Affect is flat. Thought process is concrete. Thought content, no suicidal or homicidal ideation. ASSESSMENT: Anxiety disorder. PLAN: 1. Continue mirtazapine. 2. Continue the Ativan. 3. Continue to follow and readjust the medications. Justice Manriquez M.D. DR: Marilynn JOB#: [id number] CC:
[2020-03-07] MEDS: Morphine Sulfate 2mg/ml Inj(IV/IM USE ONLY) IVP PRN ×3 (04:11→18:35)
--- NOTE | 2020-03-07 06:20 | Hematology/Onc Progress Note ---
Assessment/Plan Assessment/Plan Assessment and Recs # Pancytopenia -- multiple etiologies could be related to underlying liver disease, medication-induced, infection versus viral syndrome versus underlying bone marrow cause, in this case, has severe liver disease and cirrhosis --> peripheral smear has been ordered and does not show significant abnormalities and none noted --> Medications have been reviewed --> Continue to monitor for improvement, trend cbc --> Hep panel and HIV are both negative --> US abd ordered to r/o cirrhosis and hepatosplenomegaly ->CIRRHOSIS IS NOTED , LARGE SPLEEN --> reverse isolation if ANC is <2000 --> Give neupogen if ANC <1000 --> Transfuse if hgb <7, with 1 unit prbc --> anemia panel ordered as well-->CW acd --> hgb trend 7-->7.1-->8.4-->8.2 -->8.7 --> plt 145k --> wbc 3.4 --> abx: sameer/rifaximin # Cellulitis of the lower extremities --> continue abx as needed as per id --> Started on IV antibiotics --> as per surg recs, wound care # Elevated LFTS --> as per gi --> due to cirrhosis # Dvt ppx scds The timing of this note does not necessarily reflect the time of the patient was seen. Greatly appreciate consultation. Subjective Constitutional: Denies: no symptoms, chills, fever, malaise, weakness, other HEENT: Denies: no symptoms, eye pain, blurred vision, tearing, double vision, ear pain, ear discharge, nose pain, nose congestion, throat pain, throat swelling, mouth pain, mouth swelling, other Cardiovascular: Denies: no symptoms, chest pain, edema, irregular heart rate, lightheadedness, palpitations, syncope, other Respiratory: Denies: no symptoms, cough, shortness of breath, SOB with excertion, SOB at rest, sputum, wheezing, other Gastrointestinal/Abdominal: Denies: no symptoms, abdomen distended, abdominal pain, black stools, tarry stools, blood in stool, constipated, diarrhea, difficulty swallowing, nausea, poor appetite, poor fluid intake, rectal bleeding , vomiting, other Genitourinary: Denies: no symptoms, burning, discharge, frequency, flank pain, hematuria, incontinence, pain, urgency, other Neurologic/Psychiatric: Denies: no symptoms, anxiety, depressed, emotional problems, headache, numbness, paresthesia, pre-existing deficit, seizure, tingling, tremors, weakness, other Endocrine: Denies: no symptoms, excessive sweating, flushing, intolerance to cold, intolerance to heat, increased hunger, increased thirst, increased urine, unexplained weight gain, unexplained weight loss, other Allergies: Coded Allergies: No Known Allergies (Unverified , 02/29/20) Subjective 03/02 no events, no bleeding, hgb 7.1, no hemolysis 03/03 s/p blood, hgb improved to 8.4, stool ob negtive, on abx 03/05 asleep, no acute distress, hgb 8.2 03/06 remains comfortable, on abx, plt remains low 03/07 is on nonrebreather, no night sweats, labs are noted Objective Objective Current Medications Medications (Trade) Dose Ordered Sig/Dolores Route PRN Reason Start Time Stop Time Status Last Admin Dose Admin Acetaminophen (Tylenol) 650 mg Q4H PRN ORAL Mild Pain (Pain Scale 1-3) 02/29/20 20:00 03/30/20 19:59 03/07/20 01:37 Acetaminophen (Tylenol) 650 mg Q4H PRN ORAL Temp >100 03/02/20 22:30 04/01/20 22:29 03/05/20 03:43 Diphenhydramine HCl (Benadryl) 25 mg Q4H PRN ORAL moderate itching 02/29/20 20:00 03/30/20 19:59 03/06/20 18:45 Diphenhydramine HCl (Benadryl) 50 mg Q4H PRN ORAL SEVERE ITCHING 02/29/20 20:00 03/30/20 19:59 03/05/20 10:07 Lactulose (Cephulac) 10 gm THREE TIMES A DAY ORAL 03/02/20 13:00 04/01/20 12:59 03/04/20 17:05 Lorazepam (Ativan) 2 mg Q6H PRN ORAL Anxiety 03/02/20 18:15 03/09/20 18:14 03/02/20 21:01 Meropenem 1 gm/ Sodium Chloride 55 ml @ 110 mls/hr Q8HR IVPB 03/03/20 14:00 03/08/20 13:59 03/06/20 22:24 Mirtazapine (Remeron) 7.5 mg BEDTIME PRN ORAL SLEEP 03/02/20 18:00 05/31/20 17:59 03/03/20 22:57 Morphine Sulfate (Morphine Sulfate) 2 mg Q4H PRN IVP For Pain 4-03/01/20 20:24 03/08/20 20:23 03/07/20 04:11 Rifaximin (Xifaxan) 550 mg EVERY 12 HOURS ORAL 03/02/20 21:00 03/09/20 20:59 03/06/20 22:23 Last 24 Hour Vital Signs Date Time Temp Pulse Resp B/P (MAP) Pulse Ox O2 Delivery O2 Flow Rate FiO2 03/07/20 04:00 98.5 70 20 105/53 (70) 96 03/07/20 01:25 18 98 03/07/20 01:00 18 89 03/07/20 00:40 99.0 72 20 124/58 (80) 88 03/06/20 21:00 Nasal Cannula 3.0 03/06/20 20:00 98.5 65 17 118/59 (78) 92 03/06/20 16:00 97.4 68 18 134/70 (91) 91 03/06/20 12:00 97.9 64 20 127/65 (85) 90 03/06/20 09:00 Nasal Cannula 2.0 03/06/20 08:00 97.7 62 18 106/62 (77) 92 03/06/20 04:00 98.6 71 18 112/66 (81) 91 03/06/20 00:56 99.6 03/06/20 00:00 100.6 70 18 140/74 (96) 91 03/05/20 21:00 Nasal Cannula 2.0 03/05/20 20:00 98.1 71 16 139/68 (91) 92 03/05/20 16:00 97.5 71 16 142/80 (100) 93 03/05/20 12:00 98.0 77 20 140/80 (100) 96 03/05/20 09:00 Nasal Cannula 2.0 03/05/20 08:00 98.6 78 18 115/65 (82) 97 Intake and Output 03/06/20 03/07/20 19:00 07:00 Intake Total 300 ml Balance 300 ml Intake Oral 300 ml Labs Test 03/04/20 06:30 03/05/20 07:18 03/06/20 05:30 03/06/20 21:25 White Blood Count 4.2 K/UL (4.8-10.8) 3.8 K/UL (4.8-10.8) 3.4 K/UL (4.8-10.8) Red Blood Count 2.38 M/UL (4.20-5.40) 2.40 M/UL (4.20-5.40) 2.56 M/UL (4.20-5.40) Hemoglobin 8.1 G/DL (12.0-16.0) 8.2 G/DL (12.0-16.0) 8.7 G/DL (12.0-16.0) Hematocrit 23.6 % (37.0-47.0) 24.0 % (37.0-47.0) 25.2 % (37.0-47.0) Mean Corpuscular Volume 99 FL (80-99) 100 FL (80-99) 98 FL (80-99) Mean Corpuscular Hemoglobin 34.1 PG (27.0-31.0) 34.3 PG (27.0-31.0) 34.1 PG (27.0-31.0) Mean Corpuscular Hemoglobin Concent 34.5 G/DL (32.0-36.0) 34.3 G/DL (32.0-36.0) 34.6 G/DL (32.0-36.0) Red Cell Distribution Width 16.7 % (11.6-14.8) 17.7 % (11.6-14.8) 16.9 % (11.6-14.8) Platelet Count 119 K/UL (150-450) 149 K/UL (150-450) 145 K/UL (150-450) Mean Platelet Volume 5.4 FL (6.5-10.1) 5.0 FL (6.5-10.1) 5.4 FL (6.5-10.1) Neutrophils (%) (Auto) % (45.0-75.0) 57.0 % (45.0-75.0) % (45.0-75.0) Lymphocytes (%) (Auto) % (20.0-45.0) 25.3 % (20.0-45.0) % (20.0-45.0) Monocytes (%) (Auto) % (1.0-10.0) 8.3 % (1.0-10.0) % (1.0-10.0) Eosinophils (%) (Auto) % (0.0-3.0) 8.2 % (0.0-3.0) % (0.0-3.0) Basophils (%) (Auto) % (0.0-2.0) 1.2 % (0.0-2.0) % (0.0-2.0) Differential Total Cells Counted 100 100 Neutrophils % (Manual) 86 % (45-75) 66 % (45-75) Lymphocytes % (Manual) 7 % (20-45) 17 % (20-45) Monocytes % (Manual) 7 % (1-10) 10 % (1-10) Eosinophils % (Manual) 0 % (0-3) 6 % (0-3) Basophils % (Manual) 0 % (0-2) 1 % (0-2) Band Neutrophils 0 % (0-8) 0 % (0-8) Platelet Estimate Decreased Decreased Platelet Morphology Normal Normal Anisocytosis 1+ 1+ Sodium Level 135 MMOL/L (136-145) 139 MMOL/L (136-145) 139 MMOL/L (136-145) Potassium Level 3.3 MMOL/L (3.5-5.1) 3.2 MMOL/L (3.5-5.1) 3.6 MMOL/L (3.5-5.1) Chloride Level 103 MMOL/L (98-107) 106 MMOL/L (98-107) 107 MMOL/L (98-107) Carbon Dioxide Level 27 MMOL/L (21-32) 26 MMOL/L (21-32) 26 MMOL/L (21-32) Anion Gap 5 mmol/L (5-15) 7 mmol/L (5-15) 6 mmol/L (5-15) Blood Urea Nitrogen 7 mg/dL (7-18) 4 mg/dL (7-18) 4 mg/dL (7-18) Creatinine 0.7 MG/DL (0.55-1.30) 0.7 MG/DL (0.55-1.30) 0.7 MG/DL (0.55-1.30) Estimat Glomerular Filtration Rate > 60 mL/min (>60) > 60 mL/min (>60) > 60 mL/min (>60) Glucose Level 72 MG/DL (74-106) 91 MG/DL (74-106) 73 MG/DL (74-106) Calcium Level 7.7 MG/DL (8.5-10.1) 7.2 MG/DL (8.5-10.1) 7.3 MG/DL (8.5-10.1) Total Bilirubin 0.6 MG/DL (0.2-1.0) 0.6 MG/DL (0.2-1.0) Aspartate Amino Transf (AST/SGOT) 51 U/L (15-37) 58 U/L (15-37) Alanine Aminotransferase (ALT/SGPT) 25 U/L (12-78) 23 U/L (12-78) Alkaline Phosphatase 111 U/L (46-116) 104 U/L (46-116) Total Protein 7.4 G/DL (6.4-8.2) 7.2 G/DL (6.4-8.2) Albumin 1.9 G/DL (3.4-5.0) 1.8 G/DL (3.4-5.0) Globulin 5.5 g/dL 5.4 g/dL Albumin/Globulin Ratio 0.3 (1.0-2.7) 0.3 (1.0-2.7) Hypochromasia 2+ Spherocytes 1+ Troponin I 0.007 ng/mL (0.000-0.056) Test 03/07/20 05:15 Height (Feet): 5 Height (Inches): 1.00 Weight (Pounds): 289 Objective Physical Exam: Vitals: reviewed General: NAD HEENT: nc, at Neck: supple Chest: clear breath sounds bilaterally Cardiovascular: RRR, no s3, s4 EXT ++ Significant edema and erythema bilateral lower extremity, patient also has blistering on both feet given the edema, whittish overcrust/crusting++ Neurologic: alert, oriented x3 Skin: other - As above Brett Mcclain MD Mar 07, 2020 06:20
[2020-03-07 06:24] LABS: BASOPHILS % (AUTO) 1.1 % (0.0-2.0); EOSINOPHILS % (AUTO) 8.5 % (0.0-3.0); HEMATOCRIT 27.7 % (37.0-47.0); HEMOGLOBIN 9.3 G/DL (12.0-16.0); LYMPHOCYTES % (AUTO) 32.2 % (20.0-45.0); MEAN CORPUSCULAR VOLUME 100 FL (80-99); MONOCYTES % (AUTO) 6.9 % (1.0-10.0); NEUTROPHILS % (AUTO) 51.4 % (45.0-75.0); PLATELET COUNT 162 K/UL (150-450); RED BLOOD COUNT 2.78 M/UL (4.20-5.40); RED CELL DISTRIBUTION WIDTH 17.5 % (11.6-14.8); WHITE BLOOD COUNT 3.5 K/UL (4.8-10.8)
[2020-03-07] MEDS: Meropenem 1 GM in NS 55 ML IVPB SCH ×3 (06:32→21:36)
[2020-03-07 07:29] LABS: ANION GAP 6 mmol/L (5-15); BLOOD UREA NITROGEN 3 mg/dL (7-18); CALCIUM 7.7 MG/DL (8.5-10.1); CARBON DIOXIDE 27 MMOL/L (21-32); CHLORIDE 103 MMOL/L (98-107); CREATININE 0.6 MG/DL (0.55-1.30); POTASSIUM 3.6 MMOL/L (3.5-5.1); SODIUM 136 MMOL/L (136-145)
[2020-03-07 08:00] VITALS: BP 119/66
[2020-03-07] MEDS: DiphenhydrAMINE 25mg Tab ORAL PRN (09:22)
[2020-03-07] MEDS: Lactulose 10gm/15ml UDC ORAL SCH ×3 (09:22→18:21)
--- NOTE | 2020-03-07 09:44 | General Progress Note ---
Assessment/Plan Status: progressing Assessment/Plan: macrocytic anemia elevated LFTS cirrhosis cellulitis elevated Ammonia levels abd us>> reviewed lactulose and Xifaxan fu stool ob>>>neg s/p one unit PRBC in this admission GI procedures if needed abx per id hepatitis panel>>>>>positive for hep C>>> needs out patient fu nutrition eval appreciated>>> cardiac diet will fu Subjective ROS Limited/Unobtainable: No Allergies: Coded Allergies: No Known Allergies (Unverified , 02/29/20) Objective Last 24 Hour Vital Signs Date Time Temp Pulse Resp B/P (MAP) Pulse Ox O2 Delivery O2 Flow Rate FiO2 03/07/20 08:00 97.9 68 20 119/66 (83) 97 03/07/20 04:00 98.5 70 20 105/53 (70) 96 03/07/20 01:25 18 98 03/07/20 01:00 18 89 03/07/20 00:40 99.0 72 20 124/58 (80) 88 03/06/20 21:00 Nasal Cannula 3.0 03/06/20 20:00 98.5 65 17 118/59 (78) 92 03/06/20 16:00 97.4 68 18 134/70 (91) 91 03/06/20 12:00 97.9 64 20 127/65 (85) 90 Intake and Output 03/06/20 03/07/20 19:00 07:00 Intake Total 300 ml 240 ml Output Total 300 ml Balance 300 ml -60 ml Intake Oral 300 ml 240 ml Output Urine Total 300 ml # Voids 4 # Bowel Movements 1 Laboratory Tests 03/06/20 21:25: Troponin I 0.007 03/07/20 05:15: White Blood Count 3.5L, Red Blood Count 2.78L, Hemoglobin 9.3L, Hematocrit 27.7L , Mean Corpuscular Volume 100H, Mean Corpuscular Hemoglobin 33.4H, Mean Corpuscular Hemoglobin Concent 33.5, Red Cell Distribution Width 17.5H, Platelet Count 162, Mean Platelet Volume 6.2L, Neutrophils (%) (Auto) 51.4, Lymphocytes (%) (Auto) 32.2, Monocytes (%) (Auto) 6.9, Eosinophils (%) (Auto) 8.5H, Basophils (%) (Auto) 1.1, Sodium Level 136, Potassium Level 3.6, Chloride Level 103, Carbon Dioxide Level 27, Anion Gap 6, Blood Urea Nitrogen 3L, Creatinine 0.6, Estimat Glomerular Filtration Rate > 60, Glucose Level 83, Calcium Level 7.7L Height (Feet): 5 Height (Inches): 1.00 Weight (Pounds): 289 General Appearance: no apparent distress EENT: normal ENT inspection Neck: supple Cardiovascular: normal rate Respiratory/Chest: decreased breath sounds Abdomen: normal bowel sounds, non tender, soft Extremities: non-tender Tam Spicer MD Mar 07, 2020 09:44
[2020-03-07 12:00] VITALS: BP 127/74
--- NOTE | 2020-03-07 12:16 | Infectious Diseases Prog Note ---
Assessment/Plan Assessment/Plan IMPRESSION: 1. Bilateral leg cellulitis,Pseudomonas in culture 2. Anemia. 3. Hypoxemia 4. Thrombocytopenia. 5. Homeless 6. Morbid obesity. 7. Cirrhosis RECOMMENDATION: continue Meropenem Will try to R/O Covid19 Follow up CXR Will also have VQ scan Subjective ROS Limited/Unobtainable: Yes Respiratory: Reports: shortness of breath, productive cough Allergies: Coded Allergies: No Known Allergies (Unverified , 02/29/20) Objective Vital Signs Last 24 Hour Vital Signs Date Time Temp Pulse Resp B/P (MAP) Pulse Ox O2 Delivery O2 Flow Rate FiO2 03/07/20 09:00 Non-Rebreather 10.0 03/07/20 08:00 97.9 68 20 119/66 (83) 97 03/07/20 04:00 98.5 70 20 105/53 (70) 96 03/07/20 01:25 18 98 03/07/20 01:00 18 89 03/07/20 00:40 99.0 72 20 124/58 (80) 88 03/06/20 21:00 Nasal Cannula 3.0 03/06/20 20:00 98.5 65 17 118/59 (78) 92 03/06/20 16:00 97.4 68 18 134/70 (91) 91 Height (Feet): 5 Height (Inches): 1.00 Weight (Pounds): 289 HEENT: mucous membranes moist Respiratory/Chest: decreased breath sounds, other - oxygen by mask Cardiovascular: normal rate Abdomen: soft, non tender Extremities: other - edema of legs Skin: ulcers, other - feet Neurologic/Psychiatric: responsive Laboratory Tests Test 03/06/20 21:25 03/07/20 05:15 03/07/20 10:17 Troponin I 0.007 ng/mL (0.000-0.056) White Blood Count 3.5 K/UL (4.8-10.8) L Red Blood Count 2.78 M/UL (4.20-5.40) L Hemoglobin 9.3 G/DL (12.0-16.0) L Hematocrit 27.7 % (37.0-47.0) L Mean Corpuscular Volume 100 FL (80-99) H Mean Corpuscular Hemoglobin 33.4 PG (27.0-31.0) H Mean Corpuscular Hemoglobin Concent 33.5 G/DL (32.0-36.0) Red Cell Distribution Width 17.5 % (11.6-14.8) H Platelet Count 162 K/UL (150-450) Mean Platelet Volume 6.2 FL (6.5-10.1) L Neutrophils (%) (Auto) 51.4 % (45.0-75.0) Lymphocytes (%) (Auto) 32.2 % (20.0-45.0) Monocytes (%) (Auto) 6.9 % (1.0-10.0) Eosinophils (%) (Auto) 8.5 % (0.0-3.0) H Basophils (%) (Auto) 1.1 % (0.0-2.0) Sodium Level 136 MMOL/L (136-145) Potassium Level 3.6 MMOL/L (3.5-5.1) Chloride Level 103 MMOL/L (98-107) Carbon Dioxide Level 27 MMOL/L (21-32) Anion Gap 6 mmol/L (5-15) Blood Urea Nitrogen 3 mg/dL (7-18) L Creatinine 0.6 MG/DL (0.55-1.30) Estimat Glomerular Filtration Rate > 60 mL/min (>60) Glucose Level 83 MG/DL (74-106) Calcium Level 7.7 MG/DL (8.5-10.1) L Arterial Blood pH 7.379 (7.350-7.450) Arterial Blood Partial Pressure CO2 48.6 mmHg (35.0-45.0) H Arterial Blood Partial Pressure O2 72.4 mmHg (75.0-100.0) L Arterial Blood HCO3 28.0 mmol/L (22.0-26.0) H Arterial Blood Oxygen Saturation 93.9 % (95-100) L Arterial Blood Base Excess 2.4 (-2-2) H Joaquin Test Positive Current Medications Medications (Trade) Dose Ordered Sig/Dolores Route PRN Reason Start Time Stop Time Status Last Admin Dose Admin Acetaminophen (Tylenol) 650 mg Q4H PRN ORAL Mild Pain (Pain Scale 1-3) 02/29/20 20:00 03/30/20 19:59 03/07/20 01:37 Acetaminophen (Tylenol) 650 mg Q4H PRN ORAL Temp >100 03/02/20 22:30 04/01/20 22:29 03/05/20 03:43 Albuterol Sulfate (Proventil MDI) 2 puff Q6HRT INH 03/07/20 13:00 06/05/20 12:59 Diphenhydramine HCl (Benadryl) 25 mg Q4H PRN ORAL moderate itching 02/29/20 20:00 03/30/20 19:59 03/07/20 09:22 Diphenhydramine HCl (Benadryl) 50 mg Q4H PRN ORAL SEVERE ITCHING 02/29/20 20:00 03/30/20 19:59 03/05/20 10:07 Furosemide (Lasix) 20 mg BID IV 03/07/20 10:30 04/06/20 10:29 03/07/20 10:52 Lactulose (Cephulac) 10 gm THREE TIMES A DAY ORAL 03/02/20 13:00 04/01/20 12:59 03/07/20 09:22 Lorazepam (Ativan) 2 mg Q6H PRN ORAL Anxiety 03/02/20 18:15 03/09/20 18:14 03/02/20 21:01 Meropenem 1 gm/ Sodium Chloride 55 ml @ 110 mls/hr Q8HR IVPB 03/03/20 14:00 03/08/20 13:59 03/07/20 06:32 Mirtazapine (Remeron) 7.5 mg BEDTIME PRN ORAL SLEEP 03/02/20 18:00 05/31/20 17:59 03/03/20 22:57 Morphine Sulfate (Morphine Sulfate) 2 mg Q4H PRN IVP For Pain 4-03/01/20 20:24 03/08/20 20:23 03/07/20 10:52 Rifaximin (Xifaxan) 550 mg EVERY 12 HOURS ORAL 03/02/20 21:00 03/09/20 20:59 03/07/20 09:22 Jonathon Shah MD Mar 07, 2020 12:16
--- NOTE | 2020-03-07 13:43 | Diagnostic Imaging Report ---
Indication: Shortness of breath Technique: One view of the chest Comparison: 02/29/2020 Findings: Interim development or increase of bilateral interstitial and airspace infiltrates versus edema, diffuse, predominantly perihilar. There may be some pleural fluid on the left. The heart is borderline enlarged. Impression: Cardiomegaly Bilateral infiltrates versus edema new or markedly increased from prior study of 02/29/2020 Small left pleural effusion
[2020-03-07] MEDS: Albuterol 90mcg Inhaler 8gm INH SCH ×3 (15:12→18:22)
[2020-03-07 15:59] VITALS: BP 136/73
--- NOTE | 2020-03-07 16:53 | Pulmonology Progress Note ---
Assessment/Plan Assessment/Plan Pulmonary Consultation HPI Patient is a 59 year old woman with significant obesity, admitted with bilateral lower extremity cellulitis, had complained of increased swelling and redness to both of her feet and legs Had elevated BNP on admission, persistent edema since admission, worsening hypoxia, LE DVT (right) negative for DVT. Patient is a poor historian reports that she has been having increased weakness over the past several days she tried to stand up and felt too weak Denied any fevers, vomiting or diarrhea, has had previous hospitalizations for cellulitis. Currently being ruled out for COVID 19 Allergies: No Known Allergies Past Medical History: Obesity, Cirrhosis, Anemia, Anxiety, Cellulitis All Other Systems: negative except mentioned in HPI Physical Exam Vital Signs Noted General Appearance: Obese, no apparent distress Head: normocephalic, atraumatic Eyes: bilateral eye PERRL, bilateral eye EOMI ENT: EOM grossly intact, moist MM, no LN Respiratory: lungs clear, no respiratory distress, no retraction Cardiovascular: regular rate, rhythm, HS1, HS2 RRR Gastrointestinal: Obese, soft non tender, ND Musculoskeletal: Significant edema and erythema bilateral lower extremity, patient also has blistering/crusting on both feet, Neurologic: alert, oriented x3 Impression: Bilateral Lower Extremity Cellulitis Elevated NPA, severe bilateral edema Worsening hypoxia, elevated PCO2 of 48 Cirrhosis Splenomegaly Anemia Anxiety Plan IV Antibiotics per ID Surgery following for wounds Hematology following for anemia, observing for Neutropenia Diurese PRN Monitor labs Bronchodilators PPX - SCD Echocardiogram VQ scan Await COVID19 results O2 PRN (cannot use BiPAP as COVID R/O) Albuterol PRN Higher level of care Labs Noted Chest X-Ray: Cardiomegaly, left lower lobe atelectasis versus effusion, worsening infiltrates/congestion Subjective ROS Limited/Unobtainable: No Constitutional: Reports: fever, other - low grade fever in am Gastrointestinal/Abdominal: Reports: no symptoms Allergies: Coded Allergies: No Known Allergies (Unverified , 02/29/20) Objective Last 24 Hour Vital Signs Date Time Temp Pulse Resp B/P (MAP) Pulse Ox O2 Delivery O2 Flow Rate FiO2 03/07/20 15:59 97.6 75 20 136/73 (94) 96 03/07/20 12:00 98.4 71 20 127/74 (91) 96 03/07/20 09:00 Non-Rebreather 10.0 03/07/20 08:00 97.9 68 20 119/66 (83) 97 03/07/20 04:00 98.5 70 20 105/53 (70) 96 03/07/20 01:25 18 98 03/07/20 01:00 18 89 03/07/20 00:40 99.0 72 20 124/58 (80) 88 03/06/20 21:00 Nasal Cannula 3.0 03/06/20 20:00 98.5 65 17 118/59 (78) 92 Intake and Output 03/06/20 03/07/20 19:00 07:00 Intake Total 300 ml 240 ml Output Total 300 ml Balance 300 ml -60 ml Intake Oral 300 ml 240 ml Output Urine Total 300 ml # Voids 4 # Bowel Movements 1 General Appearance: no acute distress HEENT: mucous membranes moist Abdomen: soft, non tender Extremities: other - edema of legs Skin: ulcers, other - feet Neurologic/Psychiatric: responsive Laboratory Tests 03/06/20 21:25: Troponin I 0.007 03/07/20 05:15: White Blood Count 3.5L, Red Blood Count 2.78L, Hemoglobin 9.3L, Hematocrit 27.7L , Mean Corpuscular Volume 100H, Mean Corpuscular Hemoglobin 33.4H, Mean Corpuscular Hemoglobin Concent 33.5, Red Cell Distribution Width 17.5H, Platelet Count 162, Mean Platelet Volume 6.2L, Neutrophils (%) (Auto) 51.4, Lymphocytes (%) (Auto) 32.2, Monocytes (%) (Auto) 6.9, Eosinophils (%) (Auto) 8.5H, Basophils (%) (Auto) 1.1, Sodium Level 136, Potassium Level 3.6, Chloride Level 103, Carbon Dioxide Level 27, Anion Gap 6, Blood Urea Nitrogen 3L, Creatinine 0.6, Estimat Glomerular Filtration Rate > 60, Glucose Level 83, Calcium Level 7.7L 03/07/20 10:17: Arterial Blood pH 7.379, Arterial Blood Partial Pressure CO2 48.6H, Arterial Blood Partial Pressure O2 72.4L, Arterial Blood HCO3 28.0H, Arterial Blood Oxygen Saturation 93.9L, Arterial Blood Base Excess 2.4H, Joaquin Test Positive Current Medications Medications (Trade) Dose Ordered Sig/Dolores Route PRN Reason Start Time Stop Time Status Last Admin Dose Admin Acetaminophen (Tylenol) 650 mg Q4H PRN ORAL Mild Pain (Pain Scale 1-3) 02/29/20 20:00 03/30/20 19:59 03/07/20 01:37 Acetaminophen (Tylenol) 650 mg Q4H PRN ORAL Temp >100 03/02/20 22:30 04/01/20 22:29 03/05/20 03:43 Albuterol Sulfate (Proventil MDI) 2 puff Q6HRT INH 03/07/20 13:00 06/05/20 12:59 03/07/20 15:12 Diphenhydramine HCl (Benadryl) 25 mg Q4H PRN ORAL moderate itching 02/29/20 20:00 03/30/20 19:59 03/07/20 09:22 Diphenhydramine HCl (Benadryl) 50 mg Q4H PRN ORAL SEVERE ITCHING 02/29/20 20:00 03/30/20 19:59 03/05/20 10:07 Furosemide (Lasix) 20 mg BID IV 03/07/20 10:30 04/06/20 10:29 03/07/20 10:52 Lactulose (Cephulac) 10 gm THREE TIMES A DAY ORAL 03/02/20 13:00 04/01/20 12:59 03/07/20 14:13 Lorazepam (Ativan) 2 mg Q6H PRN ORAL Anxiety 03/02/20 18:15 03/09/20 18:14 03/02/20 21:01 Meropenem 1 gm/ Sodium Chloride 55 ml @ 110 mls/hr Q8HR IVPB 03/03/20 14:00 03/08/20 13:59 03/07/20 14:13 Mirtazapine (Remeron) 7.5 mg BEDTIME PRN ORAL SLEEP 03/02/20 18:00 05/31/20 17:59 03/03/20 22:57 Morphine Sulfate (Morphine Sulfate) 2 mg Q4H PRN IVP For Pain 4-03/01/20 20:24 03/08/20 20:23 03/07/20 10:52 Rifaximin (Xifaxan) 550 mg EVERY 12 HOURS ORAL 03/02/20 21:00 03/09/20 20:59 03/07/20 09:22 Doron Carrillo MD Mar 07, 2020 16:53
[2020-03-07] MEDS ORDERED: LORazepam 1mg tab ORAL PRN (18:15)
[2020-03-07 20:00] VITALS: BP 163/104
--- NOTE | 2020-03-07 21:16 | Surgery Progress Note ---
Surgery Progress Note Subjective Additional Comments sob on supplemental O2 isolation and COVID testing initiated Objective Last 24 Hour Vital Signs Date Time Temp Pulse Resp B/P (MAP) Pulse Ox O2 Delivery O2 Flow Rate FiO2 03/07/20 15:59 97.6 75 20 136/73 (94) 96 03/07/20 12:00 98.4 71 20 127/74 (91) 96 03/07/20 09:00 Non-Rebreather 10.0 03/07/20 08:00 97.9 68 20 119/66 (83) 97 03/07/20 04:00 98.5 70 20 105/53 (70) 96 03/07/20 01:25 18 98 03/07/20 01:00 18 89 03/07/20 00:40 99.0 72 20 124/58 (80) 88 I&O Intake and Output 03/06/20 03/07/20 19:00 07:00 Intake Total 300 ml 240 ml Output Total 300 ml Balance 300 ml -60 ml Intake Oral 300 ml 240 ml Output Urine Total 300 ml # Voids 4 # Bowel Movements 1 Dressing: dry Wound: clean Cardiovascular: RSR Respiratory: clear Abdomen: soft, flat, non-tender Extremities: edema, no tenderness, no cyanosis Laboratory Tests Test 03/06/20 21:25 03/07/20 05:15 03/07/20 10:17 Troponin I 0.007 ng/mL (0.000-0.056) White Blood Count 3.5 K/UL (4.8-10.8) L Red Blood Count 2.78 M/UL (4.20-5.40) L Hemoglobin 9.3 G/DL (12.0-16.0) L Hematocrit 27.7 % (37.0-47.0) L Mean Corpuscular Volume 100 FL (80-99) H Mean Corpuscular Hemoglobin 33.4 PG (27.0-31.0) H Mean Corpuscular Hemoglobin Concent 33.5 G/DL (32.0-36.0) Red Cell Distribution Width 17.5 % (11.6-14.8) H Platelet Count 162 K/UL (150-450) Mean Platelet Volume 6.2 FL (6.5-10.1) L Neutrophils (%) (Auto) 51.4 % (45.0-75.0) Lymphocytes (%) (Auto) 32.2 % (20.0-45.0) Monocytes (%) (Auto) 6.9 % (1.0-10.0) Eosinophils (%) (Auto) 8.5 % (0.0-3.0) H Basophils (%) (Auto) 1.1 % (0.0-2.0) Sodium Level 136 MMOL/L (136-145) Potassium Level 3.6 MMOL/L (3.5-5.1) Chloride Level 103 MMOL/L (98-107) Carbon Dioxide Level 27 MMOL/L (21-32) Anion Gap 6 mmol/L (5-15) Blood Urea Nitrogen 3 mg/dL (7-18) L Creatinine 0.6 MG/DL (0.55-1.30) Estimat Glomerular Filtration Rate > 60 mL/min (>60) Glucose Level 83 MG/DL (74-106) Calcium Level 7.7 MG/DL (8.5-10.1) L Arterial Blood pH 7.379 (7.350-7.450) Arterial Blood Partial Pressure CO2 48.6 mmHg (35.0-45.0) H Arterial Blood Partial Pressure O2 72.4 mmHg (75.0-100.0) L Arterial Blood HCO3 28.0 mmol/L (22.0-26.0) H Arterial Blood Oxygen Saturation 93.9 % (95-100) L Arterial Blood Base Excess 2.4 (-2-2) H Joaquin Test Positive Plan Problems: (1) Cellulitis Assessment & Plan: bilateral lower extremity cellulitis / edema chronic venous status changes dermatitis no abscess no purulent drainage ulcerations forming. keep lower extremity elevated while in bed apply skin protectant / moisturizing cream daily okay to shower okay to wrap soft after cream abx as per ID for cellulitis okay for diet duplex ordered trend labs will follow with recs thank you No evidence of deep venous thrombosis involving the visualized veins of the RIGHT lower extremity. refused eval of left COVID testing cxr noted pending results supportive care Theron Sotomayor Mar 07, 2020 21:16
--- NOTE | 2020-03-07 22:44 | General Progress Note ---
Assessment/Plan Problem List: (1) Cellulitis ICD Codes: L03.90 - Cellulitis, unspecified SNOMED: [id number] Qualifiers: Qualified Codes: L03.119 - Cellulitis of unspecified part of limb Status: progressing Assessment/Plan: hypoxic on oxygen noncompliant pulmonary is aware of desaturation for psuedomonas dc to any snf for iv abx Subjective ROS Limited/Unobtainable: Yes Allergies: Coded Allergies: No Known Allergies (Unverified , 02/29/20) Objective Last 24 Hour Vital Signs Date Time Temp Pulse Resp B/P (MAP) Pulse Ox O2 Delivery O2 Flow Rate FiO2 03/07/20 20:00 60 03/07/20 20:00 96.4 83 20 163/104 (123) 96 03/07/20 15:59 97.6 75 20 136/73 (94) 96 03/07/20 12:00 98.4 71 20 127/74 (91) 96 03/07/20 09:00 Non-Rebreather 10.0 03/07/20 08:00 97.9 68 20 119/66 (83) 97 03/07/20 04:00 98.5 70 20 105/53 (70) 96 03/07/20 01:25 18 98 03/07/20 01:00 18 89 03/07/20 00:40 99.0 72 20 124/58 (80) 88 Intake and Output 03/06/20 03/07/20 19:00 07:00 Intake Total 300 ml 240 ml Output Total 300 ml Balance 300 ml -60 ml Intake Oral 300 ml 240 ml Output Urine Total 300 ml # Voids 4 # Bowel Movements 1 Laboratory Tests 03/07/20 05:15: White Blood Count 3.5L, Red Blood Count 2.78L, Hemoglobin 9.3L, Hematocrit 27.7L , Mean Corpuscular Volume 100H, Mean Corpuscular Hemoglobin 33.4H, Mean Corpuscular Hemoglobin Concent 33.5, Red Cell Distribution Width 17.5H, Platelet Count 162, Mean Platelet Volume 6.2L, Neutrophils (%) (Auto) 51.4, Lymphocytes (%) (Auto) 32.2, Monocytes (%) (Auto) 6.9, Eosinophils (%) (Auto) 8.5H, Basophils (%) (Auto) 1.1, Sodium Level 136, Potassium Level 3.6, Chloride Level 103, Carbon Dioxide Level 27, Anion Gap 6, Blood Urea Nitrogen 3L, Creatinine 0.6, Estimat Glomerular Filtration Rate > 60, Glucose Level 83, Calcium Level 7.7L 03/07/20 10:17: Arterial Blood pH 7.379, Arterial Blood Partial Pressure CO2 48.6H, Arterial Blood Partial Pressure O2 72.4L, Arterial Blood HCO3 28.0H, Arterial Blood Oxygen Saturation 93.9L, Arterial Blood Base Excess 2.4H, Joaquin Test Positive Height (Feet): 5 Height (Inches): 1.00 Weight (Pounds): 289 General Appearance: confused Celso Moreno MD Mar 07, 2020 22:44
[2020-03-08] VITALS: BP 108/76
[2020-03-08] MEDS: Morphine Sulfate 2mg/ml Inj(IV/IM USE ONLY) IVP PRN ×4 (00:38→22:11)
[2020-03-08] MEDS: DiphenhydrAMINE 25mg Tab ORAL PRN ×4 (00:38→22:11)
--- NOTE | 2020-03-08 03:29 | Progress Note ---
DATE: 03/07/2020 SUBJECTIVE: The patient is on P2 now, transferred from P3 to P2. Able to answer the question, doing well. No behavior issues noted. MENTAL STATUS EXAMINATION: Alert, oriented times self, place, situation. Mood is neutral. Affect is flat. Thought process is concrete. Thought content, no suicidal or homicidal ideation. ASSESSMENT: Stable. PLAN: 1. We will continue current psychotropic medications. 2. Continue to follow and readjust the medication. Justice Manriquez M.D. DR: Jing JOB#: [id number] CC:
--- NOTE | 2020-03-08 03:45 | Consultation ---
DATE OF CONSULTATION: 03/07/2020 CARDIOLOGY CONSULTATION CONSULTING PHYSICIAN: Berto Gonzalez M.D. REFERRING PHYSICIAN: Celso Moreno M.D. REASON FOR CONSULTATION: Management of shortness of breath. HISTORY OF PRESENT ILLNESS: This is a very unfortunate 59-year-old lady, who initially was admitted on February 28 for bilateral lower extremity edema and cellulitis. The patient received antibiotics under supervision of Dr. Shah, however, the evening of March 06 started to have trouble with shortness of breath and chest pain. At the time of arrival to this facility on the , the vital signs were showing blood pressure 136/92 mmHg and heart rate of 89. She had been febrile throughout the course of the hospitalization and at the time of arrival to this facility, her temperature was 99.0 degrees Fahrenheit. The patient was initially admitted to med/surg for treatment of cellulitis. Due to emergence of chest pain and shortness of breath, cardiology consultation was made at request of Dr. Moreno. The patient at the time of arrival to this facility had a chest x-ray, which was suggestive of left basilar infiltrate versus edema as well as cardiomegaly. The laboratory findings was consistent with severe anemia with hemoglobin of 7.9 and evidence of UTI as well as elevation of proBNP at 968. She was ultimately transferred to telemetry for further evaluation and management. Cardiology consultation was made at the request of Dr. Moreno. PAST MEDICAL HISTORY: Includes, 1. Morbid obesity. 2. Liver cirrhosis. 3. Anemia. 4. Anxiety disorder. 5. Cellulitis. 6. History of hepatitis C virus infection. ALLERGIES: No known drug allergies. REVIEW OF SYSTEMS: A 12-system review was done, essentially negative except what was mentioned in the history of present illness. MEDICATIONS: List of medications, levothyroxine 75 mcg p.o. daily. SOCIAL HISTORY AND HABITS: Homeless. Denies any drug, alcohol, or tobacco use. PHYSICAL EXAMINATION: VITAL SIGNS: At the time of my evaluation, her blood pressure was 136/73 mmHg, heart rate was 75. She was afebrile with temperature 97.6 degrees Fahrenheit. GENERAL: The patient is a very unfortunate 59-year-old female in no apparent respiratory distress. Alert and oriented x4. Morbidly obese. HEENT: Atraumatic and normocephalic. Anicteric. Pupils are equal, round, and reactive to light and accommodation. Extraocular muscles intact. NECK: JVP cannot be assessed. No carotid bruit. Carotid upstroke is 2+ bilaterally. CARDIOVASCULAR: Normal S1, S2. Regular rate and rhythm. No murmurs, gallops, or rubs. PMI is at fourth intercostal space at left midclavicular line. LUNGS: Clear to auscultation bilaterally. ABDOMEN: Soft, nontender, and nondistended. No hepatosplenomegaly. Positive bowel sounds. EXTREMITIES: A 2+ edema bilaterally associated with erythema with blistering and crossing of both feet. LABORATORY AND DIAGNOSTIC FINDINGS: Sodium was 136, potassium is 3.6, chloride is 103, bicarbonate 27, BUN of 3, creatinine 0.6, glucose is 83 and calcium is 7.7. Troponin I was 0.007. WBC 3.5, hemoglobin 9.3, hematocrit of 27.7, platelet count is 162. INR is 1.5. A 12-lead electrocardiogram showed sinus rhythm at a rate of 70 with low voltage in the frontal leads likely due to obesity and nonspecific ST and T-wave abnormalities. QT interval borderline prolongation at 457 milliseconds. ASSESSMENT AND PLAN: The patient is a very unfortunate 59-year-old female seen in cardiology consultation. 1. Noncardiac chest pain, acute myocardial function is ruled out by two negative troponin I levels, one at the time of my admission and the other one on 03/06/2020. A 12-lead electrocardiogram does not show any acute ischemic changes. There is background history of anxiety disorder. The patient requires to be followed by the psychiatrist. A 2D echocardiography has been ordered in case of bilateral lower extremity edema and suspicious cardiomegaly on chest x-ray and elevated brain natriuretic peptide. Further therapeutic and diagnostic decision will be based on the results of the echocardiography. At this time, the patient will benefit from continuation of furosemide. 2. Bilateral lower extremity cellulitis with Pseudomonas aeruginosa in culture. 3. Pancytopenia, most likely due to hepatitis C virus infection/liver cirrhosis. 4. Homeless. I would like to thank, Dr. Moreno, for the courtesy of this consultation. Berto Gonzalez M.D. DR: JEM JOB#: [id number] CC:
[2020-03-08 04:00] VITALS: BP 140/79
[2020-03-08] MEDS: Meropenem 1 GM in NS 55 ML IVPB SCH ×3 (05:45→22:10)
[2020-03-08] MEDS: Albuterol 90mcg Inhaler 8gm INH SCH ×5 (05:55→18:24)
--- NOTE | 2020-03-08 06:03 | Hematology/Onc Progress Note ---
Assessment/Plan Assessment/Plan Assessment and Recs # Pancytopenia -- multiple etiologies could be related to underlying liver disease, medication-induced, infection versus viral syndrome versus underlying bone marrow cause, in this case, has severe liver disease and cirrhosis, HEP C++ --> peripheral smear has been ordered and does not show significant abnormalities and none noted --> Medications have been reviewed --> Continue to monitor for improvement, trend cbc --> Hep panel and HIV are both negative --> US abd ordered to r/o cirrhosis and hepatosplenomegaly ->CIRRHOSIS IS NOTED , LARGE SPLEEN --> reverse isolation if ANC is <2000 --> Give neupogen if ANC <1000 --> Transfuse if hgb <7, with 1 unit prbc --> anemia panel ordered as well-->CW acd --> hgb trend 7-->7.1-->8.4-->8.2 -->8.7 --> plt 145k-->152 --> wbc 3.4-->3.5 --> abx: sameer/rifaximin # Cellulitis of the lower extremities --> continue abx as needed as per id --> Started on IV antibiotics --> as per surg recs, wound care # Elevated LFTS --> as per gi --> due to cirrhosis # Dvt ppx scds The timing of this note does not necessarily reflect the time of the patient was seen. Greatly appreciate consultation. Subjective Constitutional: Denies: no symptoms, chills, fever, malaise, weakness, other Cardiovascular: Denies: no symptoms, chest pain, edema, irregular heart rate, lightheadedness, palpitations, syncope, other Respiratory: Denies: no symptoms, cough, shortness of breath, SOB with excertion, SOB at rest, sputum, wheezing, other Gastrointestinal/Abdominal: Denies: no symptoms, abdomen distended, abdominal pain, black stools, tarry stools, blood in stool, constipated, diarrhea, difficulty swallowing, nausea, poor appetite, poor fluid intake, rectal bleeding , vomiting, other Genitourinary: Denies: no symptoms, burning, discharge, frequency, flank pain, hematuria, incontinence, pain, urgency, other Neurologic/Psychiatric: Denies: no symptoms, anxiety, depressed, emotional problems, headache, numbness, paresthesia, pre-existing deficit, seizure, tingling, tremors, weakness, other Endocrine: Denies: no symptoms, excessive sweating, flushing, intolerance to cold, intolerance to heat, increased hunger, increased thirst, increased urine, unexplained weight gain, unexplained weight loss, other Allergies: Coded Allergies: No Known Allergies (Unverified , 02/29/20) Subjective 03/02 no events, no bleeding, hgb 7.1, no hemolysis 03/03 s/p blood, hgb improved to 8.4, stool ob negtive, on abx 03/05 asleep, no acute distress, hgb 8.2 03/06 remains comfortable, on abx, plt remains low 03/07 is on nonrebreather, no night sweats, labs are noted 03/08 labs reviewed, being diuresed, seen by cards, psych, labs noted Objective Objective Current Medications Medications (Trade) Dose Ordered Sig/Dolores Route PRN Reason Start Time Stop Time Status Last Admin Dose Admin Acetaminophen (Tylenol) 650 mg Q4H PRN ORAL Mild Pain (Pain Scale 1-3) 03/07/20 18:00 03/30/20 17:59 Acetaminophen (Tylenol) 650 mg Q4H PRN ORAL Temp >100 03/07/20 18:00 04/01/20 17:59 Albuterol Sulfate (Proventil MDI) 2 puff Q6HRT INH 03/07/20 19:00 06/05/20 12:59 03/07/20 18:22 Diphenhydramine HCl (Benadryl) 25 mg Q4H PRN ORAL moderate itching 03/07/20 18:00 03/30/20 17:59 03/08/20 05:58 Diphenhydramine HCl (Benadryl) 50 mg Q4H PRN ORAL SEVERE ITCHING 03/07/20 18:00 03/30/20 17:59 Furosemide (Lasix) 20 mg BID IV 03/07/20 18:00 04/06/20 10:29 03/07/20 18:21 Lactulose (Cephulac) 10 gm THREE TIMES A DAY ORAL 03/07/20 18:00 04/01/20 12:59 03/07/20 18:21 Lorazepam (Ativan) 2 mg Q6H PRN ORAL Anxiety 03/07/20 18:15 03/09/20 18:14 Meropenem 1 gm/ Sodium Chloride 55 ml @ 110 mls/hr Q8HR IVPB 03/07/20 22:00 03/08/20 13:59 03/08/20 05:45 Mirtazapine (Remeron) 7.5 mg BEDTIME PRN ORAL SLEEP 03/07/20 18:00 05/31/20 17:59 Morphine Sulfate (Morphine Sulfate) 2 mg Q4H PRN IVP For Pain 4-10 03/07/20 18:00 03/08/20 17:59 03/08/20 05:58 Rifaximin (Xifaxan) 550 mg EVERY 12 HOURS ORAL 03/07/20 21:00 03/09/20 20:59 03/07/20 21:36 Last 24 Hour Vital Signs Date Time Temp Pulse Resp B/P (MAP) Pulse Ox O2 Delivery O2 Flow Rate FiO2 03/08/20 04:00 97.9 88 19 140/79 (99) 95 03/08/20 02:30 67 03/08/20 00:00 98.0 90 19 108/76 (87) 96 03/07/20 21:00 Non-Rebreather 10.0 03/07/20 20:00 60 03/07/20 20:00 96.4 83 20 163/104 (123) 96 03/07/20 15:59 97.6 75 20 136/73 (94) 96 03/07/20 12:00 98.4 71 20 127/74 (91) 96 03/07/20 09:00 Non-Rebreather 10.0 03/07/20 08:00 97.9 68 20 119/66 (83) 97 03/07/20 04:00 98.5 70 20 105/53 (70) 96 03/07/20 01:25 18 98 03/07/20 01:00 18 89 03/07/20 00:40 99.0 72 20 124/58 (80) 88 03/06/20 21:00 Nasal Cannula 3.0 03/06/20 20:00 98.5 65 17 118/59 (78) 92 03/06/20 16:00 97.4 68 18 134/70 (91) 91 03/06/20 12:00 97.9 64 20 127/65 (85) 90 03/06/20 09:00 Nasal Cannula 2.0 03/06/20 08:00 97.7 62 18 106/62 (77) 92 Intake and Output 03/07/20 03/08/20 19:00 07:00 Intake Total 55 ml Output Total 1500 ml Balance -1500 ml 55 ml IV Total 55 ml Output Urine Total 1500 ml Labs Test 03/05/20 07:18 03/06/20 05:30 03/06/20 21:25 03/07/20 05:15 White Blood Count 3.8 K/UL (4.8-10.8) 3.4 K/UL (4.8-10.8) 3.5 K/UL (4.8-10.8) Red Blood Count 2.40 M/UL (4.20-5.40) 2.56 M/UL (4.20-5.40) 2.78 M/UL (4.20-5.40) Hemoglobin 8.2 G/DL (12.0-16.0) 8.7 G/DL (12.0-16.0) 9.3 G/DL (12.0-16.0) Hematocrit 24.0 % (37.0-47.0) 25.2 % (37.0-47.0) 27.7 % (37.0-47.0) Mean Corpuscular Volume 100 FL (80-99) 98 FL (80-99) 100 FL (80-99) Mean Corpuscular Hemoglobin 34.3 PG (27.0-31.0) 34.1 PG (27.0-31.0) 33.4 PG (27.0-31.0) Mean Corpuscular Hemoglobin Concent 34.3 G/DL (32.0-36.0) 34.6 G/DL (32.0-36.0) 33.5 G/DL (32.0-36.0) Red Cell Distribution Width 17.7 % (11.6-14.8) 16.9 % (11.6-14.8) 17.5 % (11.6-14.8) Platelet Count 149 K/UL (150-450) 145 K/UL (150-450) 162 K/UL (150-450) Mean Platelet Volume 5.0 FL (6.5-10.1) 5.4 FL (6.5-10.1) 6.2 FL (6.5-10.1) Neutrophils (%) (Auto) 57.0 % (45.0-75.0) % (45.0-75.0) 51.4 % (45.0-75.0) Lymphocytes (%) (Auto) 25.3 % (20.0-45.0) % (20.0-45.0) 32.2 % (20.0-45.0) Monocytes (%) (Auto) 8.3 % (1.0-10.0) % (1.0-10.0) 6.9 % (1.0-10.0) Eosinophils (%) (Auto) 8.2 % (0.0-3.0) % (0.0-3.0) 8.5 % (0.0-3.0) Basophils (%) (Auto) 1.2 % (0.0-2.0) % (0.0-2.0) 1.1 % (0.0-2.0) Sodium Level 139 MMOL/L (136-145) 139 MMOL/L (136-145) 136 MMOL/L (136-145) Potassium Level 3.2 MMOL/L (3.5-5.1) 3.6 MMOL/L (3.5-5.1) 3.6 MMOL/L (3.5-5.1) Chloride Level 106 MMOL/L (98-107) 107 MMOL/L (98-107) 103 MMOL/L (98-107) Carbon Dioxide Level 26 MMOL/L (21-32) 26 MMOL/L (21-32) 27 MMOL/L (21-32) Anion Gap 7 mmol/L (5-15) 6 mmol/L (5-15) 6 mmol/L (5-15) Blood Urea Nitrogen 4 mg/dL (7-18) 4 mg/dL (7-18) 3 mg/dL (7-18) Creatinine 0.7 MG/DL (0.55-1.30) 0.7 MG/DL (0.55-1.30) 0.6 MG/DL (0.55-1.30) Estimat Glomerular Filtration Rate > 60 mL/min (>60) > 60 mL/min (>60) > 60 mL/min (>60) Glucose Level 91 MG/DL (74-106) 73 MG/DL (74-106) 83 MG/DL (74-106) Calcium Level 7.2 MG/DL (8.5-10.1) 7.3 MG/DL (8.5-10.1) 7.7 MG/DL (8.5-10.1) Differential Total Cells Counted 100 Neutrophils % (Manual) 66 % (45-75) Lymphocytes % (Manual) 17 % (20-45) Monocytes % (Manual) 10 % (1-10) Eosinophils % (Manual) 6 % (0-3) Basophils % (Manual) 1 % (0-2) Band Neutrophils 0 % (0-8) Platelet Estimate Decreased Platelet Morphology Normal Hypochromasia 2+ Anisocytosis 1+ Spherocytes 1+ Total Bilirubin 0.6 MG/DL (0.2-1.0) Aspartate Amino Transf (AST/SGOT) 58 U/L (15-37) Alanine Aminotransferase (ALT/SGPT) 23 U/L (12-78) Alkaline Phosphatase 104 U/L (46-116) Total Protein 7.2 G/DL (6.4-8.2) Albumin 1.8 G/DL (3.4-5.0) Globulin 5.4 g/dL Albumin/Globulin Ratio 0.3 (1.0-2.7) Troponin I 0.007 ng/mL (0.000-0.056) Test 03/07/20 10:17 03/08/20 00:00 Arterial Blood pH 7.379 (7.350-7.450) Arterial Blood Partial Pressure CO2 48.6 mmHg (35.0-45.0) Arterial Blood Partial Pressure O2 72.4 mmHg (75.0-100.0) Arterial Blood HCO3 28.0 mmol/L (22.0-26.0) Arterial Blood Oxygen Saturation 93.9 % (95-100) Arterial Blood Base Excess 2.4 (-2-2) Joaquin Test Positive Urine Opiates Screen Negative (NEGATIVE) Urine Barbiturates Screen Negative (NEGATIVE) Phencyclidine (PCP) Screen Negative (NEGATIVE) Urine Amphetamines Screen Negative (NEGATIVE) Urine Benzodiazepines Screen Negative (NEGATIVE) Urine Cocaine Screen Negative (NEGATIVE) Urine Marijuana (THC) Screen Negative (NEGATIVE) Height (Feet): 5 Height (Inches): 1.00 Weight (Pounds): 289 Objective Physical Exam: Vitals: reviewed General: NAD HEENT: nc, at Neck: supple Chest: clear breath sounds bilaterally Cardiovascular: RRR, no s3, s4 EXT ++ Significant edema and erythema bilateral lower extremity, patient also has blistering on both feet given the edema, whittish overcrust/crusting++ Neurologic: alert, oriented x3 Skin: other - As above Brett Mcclain MD Mar 08, 2020 06:03
[2020-03-08 08:00] VITALS: BP 136/64
--- NOTE | 2020-03-08 08:02 | General Progress Note ---
Assessment/Plan Status: progressing Assessment/Plan: macrocytic anemia elevated LFTS cirrhosis cellulitis elevated Ammonia levels abd us>> reviewed lactulose and Xifaxan fu stool ob>>>neg s/p one unit PRBC in this admission GI procedures if needed abx per id hepatitis panel>>>>>positive for hep C>>> needs out patient fu nutrition eval appreciated>>> cardiac diet will fu Subjective ROS Limited/Unobtainable: No Allergies: Coded Allergies: No Known Allergies (Unverified , 02/29/20) Objective Last 24 Hour Vital Signs Date Time Temp Pulse Resp B/P (MAP) Pulse Ox O2 Delivery O2 Flow Rate FiO2 03/08/20 04:00 97.9 88 19 140/79 (99) 95 03/08/20 04:00 61 03/08/20 00:00 67 03/08/20 00:00 98.0 90 19 108/76 (87) 96 03/07/20 21:00 Non-Rebreather 10.0 03/07/20 20:00 60 03/07/20 20:00 96.4 83 20 163/104 (123) 96 03/07/20 15:59 97.6 75 20 136/73 (94) 96 03/07/20 12:00 98.4 71 20 127/74 (91) 96 03/07/20 09:00 Non-Rebreather 10.0 03/07/20 08:00 97.9 68 20 119/66 (83) 97 Intake and Output 03/07/20 03/08/20 19:00 07:00 Intake Total 350 ml Output Total 1500 ml 601 ml Balance -1500 ml -251 ml Intake Oral 240 ml IV Total 110 ml Output Urine Total 1500 ml 600 ml Stool Total 1 ml # Voids 3 Laboratory Tests 03/07/20 10:17: Arterial Blood pH 7.379, Arterial Blood Partial Pressure CO2 48.6H, Arterial Blood Partial Pressure O2 72.4L, Arterial Blood HCO3 28.0H, Arterial Blood Oxygen Saturation 93.9L, Arterial Blood Base Excess 2.4H, Joaquin Test Positive 03/08/20 00:00: Urine Opiates Screen Negative, Urine Barbiturates Screen Negative, Phencyclidine (PCP) Screen Negative, Urine Amphetamines Screen Negative, Urine Benzodiazepines Screen Negative, Urine Cocaine Screen Negative, Urine Marijuana (THC) Screen Negative Height (Feet): 5 Height (Inches): 1.00 Weight (Pounds): 289 General Appearance: no apparent distress EENT: normal ENT inspection Neck: supple Cardiovascular: normal rate Respiratory/Chest: decreased breath sounds Abdomen: normal bowel sounds, non tender, soft Extremities: non-tender Tam Spicer MD Mar 08, 2020 08:02
[2020-03-08] MEDS: Lactulose 10gm/15ml UDC ORAL SCH ×3 (09:07→17:20)
[2020-03-08 12:00] VITALS: BP 133/65
--- NOTE | 2020-03-08 12:01 | Surgery Progress Note ---
Surgery Progress Note Subjective Additional Comments on supplement comfortable resting HD stable Objective Last 24 Hour Vital Signs Date Time Temp Pulse Resp B/P (MAP) Pulse Ox O2 Delivery O2 Flow Rate FiO2 03/08/20 09:00 Non-Rebreather 10.0 03/08/20 08:00 66 03/08/20 08:00 98.0 66 20 136/64 (88) 98 03/08/20 04:00 97.9 88 19 140/79 (99) 95 03/08/20 04:00 61 03/08/20 00:00 67 03/08/20 00:00 98.0 90 19 108/76 (87) 96 03/07/20 21:00 Non-Rebreather 10.0 03/07/20 20:00 60 03/07/20 20:00 96.4 83 20 163/104 (123) 96 03/07/20 15:59 97.6 75 20 136/73 (94) 96 I&O Intake and Output 03/07/20 03/08/20 19:00 07:00 Intake Total 350 ml Output Total 1500 ml 601 ml Balance -1500 ml -251 ml Intake Oral 240 ml IV Total 110 ml Output Urine Total 1500 ml 600 ml Stool Total 1 ml # Voids 3 Dressing: dry Wound: clean Cardiovascular: RSR Respiratory: clear, decreased breath sounds Abdomen: soft, non-tender, present bowel sounds Extremities: edema, tenderness, no cyanosis Laboratory Tests Test 03/08/20 00:00 Urine Opiates Screen Negative (NEGATIVE) Urine Barbiturates Screen Negative (NEGATIVE) Phencyclidine (PCP) Screen Negative (NEGATIVE) Urine Amphetamines Screen Negative (NEGATIVE) Urine Benzodiazepines Screen Negative (NEGATIVE) Urine Cocaine Screen Negative (NEGATIVE) Urine Marijuana (THC) Screen Negative (NEGATIVE) Plan Problems: (1) Cellulitis Assessment & Plan: bilateral lower extremity cellulitis / edema chronic venous status changes dermatitis no abscess no purulent drainage ulcerations forming. keep lower extremity elevated while in bed apply skin protectant / moisturizing cream daily okay to shower okay to wrap soft after cream abx as per ID for cellulitis okay for diet duplex ordered trend labs will follow with recs thank you No evidence of deep venous thrombosis involving the visualized veins of the RIGHT lower extremity. refused eval of left COVID testing cxr noted pending results supportive care Theron Sotomayor Mar 08, 2020 12:01
--- NOTE | 2020-03-08 13:44 | Infectious Diseases Prog Note ---
Assessment/Plan Assessment/Plan IMPRESSION: 1. Bilateral leg cellulitis,Pseudomonas in culture 2. Anemia. 3. Hypoxemia 4. Thrombocytopenia. 5. Homeless 6. Morbid obesity. 7. Cirrhosis 8. New pneumonia RECOMMENDATION: continue Meropenem Will try to R/O Covid19 Will also have VQ scan Subjective ROS Limited/Unobtainable: No Constitutional: Reports: no symptoms Respiratory: Reports: shortness of breath, productive cough Genitourinary: Reports: no symptoms Musculoskeletal: Reports: other - decreased pain in legs Allergies: Coded Allergies: No Known Allergies (Unverified , 02/29/20) Objective Vital Signs Last 24 Hour Vital Signs Date Time Temp Pulse Resp B/P (MAP) Pulse Ox O2 Delivery O2 Flow Rate FiO2 03/08/20 12:00 98.3 65 20 133/65 (87) 96 03/08/20 12:00 65 03/08/20 09:00 Non-Rebreather 10.0 03/08/20 08:00 66 03/08/20 08:00 98.0 66 20 136/64 (88) 98 03/08/20 04:00 97.9 88 19 140/79 (99) 95 03/08/20 04:00 61 03/08/20 00:00 67 03/08/20 00:00 98.0 90 19 108/76 (87) 96 03/07/20 21:00 Non-Rebreather 10.0 03/07/20 20:00 60 03/07/20 20:00 96.4 83 20 163/104 (123) 96 03/07/20 15:59 97.6 75 20 136/73 (94) 96 Height (Feet): 5 Height (Inches): 1.00 Weight (Pounds): 289 General Appearance: no acute distress HEENT: mucous membranes moist Respiratory/Chest: lungs clear, other - oxygen by rebreathing mask Abdomen: soft, non tender Extremities: other - legs edea Skin: ulcers, other - feet Neurologic/Psychiatric: alert, responsive Laboratory Tests Test 03/08/20 00:00 Urine Opiates Screen Negative (NEGATIVE) Urine Barbiturates Screen Negative (NEGATIVE) Phencyclidine (PCP) Screen Negative (NEGATIVE) Urine Amphetamines Screen Negative (NEGATIVE) Urine Benzodiazepines Screen Negative (NEGATIVE) Urine Cocaine Screen Negative (NEGATIVE) Urine Marijuana (THC) Screen Negative (NEGATIVE) Current Medications Medications (Trade) Dose Ordered Sig/Dolores Route PRN Reason Start Time Stop Time Status Last Admin Dose Admin Acetaminophen (Tylenol) 650 mg Q4H PRN ORAL Mild Pain (Pain Scale 1-3) 03/07/20 18:00 03/30/20 17:59 Acetaminophen (Tylenol) 650 mg Q4H PRN ORAL Temp >100 03/07/20 18:00 04/01/20 17:59 Albuterol Sulfate (Proventil MDI) 2 puff Q6HRT INH 03/07/20 19:00 06/05/20 12:59 03/08/20 12:53 Diphenhydramine HCl (Benadryl) 25 mg Q4H PRN ORAL moderate itching 03/07/20 18:00 03/30/20 17:59 03/08/20 05:58 Diphenhydramine HCl (Benadryl) 50 mg Q4H PRN ORAL SEVERE ITCHING 03/07/20 18:00 03/30/20 17:59 Furosemide (Lasix) 20 mg BID IV 03/07/20 18:00 04/06/20 10:29 03/08/20 09:06 Lactulose (Cephulac) 10 gm THREE TIMES A DAY ORAL 03/07/20 18:00 04/01/20 12:59 03/08/20 12:53 Lorazepam (Ativan) 2 mg Q6H PRN ORAL Anxiety 03/07/20 18:15 03/09/20 18:14 Meropenem 1 gm/ Sodium Chloride 55 ml @ 110 mls/hr Q8HR IVPB 03/07/20 22:00 03/10/20 21:59 03/08/20 05:45 Mirtazapine (Remeron) 7.5 mg BEDTIME PRN ORAL SLEEP 03/07/20 18:00 05/31/20 17:59 Morphine Sulfate (Morphine Sulfate) 2 mg Q4H PRN IVP For Pain 4-03/07/20 18:00 03/08/20 17:59 03/08/20 05:58 Rifaximin (Xifaxan) 550 mg EVERY 12 HOURS ORAL 03/07/20 21:00 03/09/20 20:59 03/08/20 09:07 Jonathon Shah MD Mar 08, 2020 13:44
[2020-03-08 16:00] VITALS: BP 131/64
[2020-03-08 20:00] VITALS: BP 134/73
--- NOTE | 2020-03-08 20:12 | General Progress Note ---
Assessment/Plan Problem List: (1) Cellulitis ICD Codes: L03.90 - Cellulitis, unspecified SNOMED: 947879177 Qualifiers: Qualified Codes: L03.119 - Cellulitis of unspecified part of limb Status: progressing Assessment/Plan: pna resp insuff hypoxic afebrile cellulitis of legs iv abx per id s/p oxygen Subjective ROS Limited/Unobtainable: Yes Allergies: Coded Allergies: No Known Allergies (Unverified , 02/29/20) Objective Last 24 Hour Vital Signs Date Time Temp Pulse Resp B/P (MAP) Pulse Ox O2 Delivery O2 Flow Rate FiO2 03/08/20 16:00 67 03/08/20 16:00 98.1 63 20 131/64 (86) 96 03/08/20 12:00 98.3 65 20 133/65 (87) 96 03/08/20 12:00 65 03/08/20 09:00 Non-Rebreather 10.0 03/08/20 08:00 66 03/08/20 08:00 98.0 66 20 136/64 (88) 98 03/08/20 04:00 97.9 88 19 140/79 (99) 95 03/08/20 04:00 61 03/08/20 00:00 67 03/08/20 00:00 98.0 90 19 108/76 (87) 96 03/07/20 21:00 Non-Rebreather 10.0 Intake and Output 03/07/20 03/08/20 19:00 07:00 Intake Total 350 ml Output Total 1500 ml 601 ml Balance -1500 ml -251 ml Intake Oral 240 ml IV Total 110 ml Output Urine Total 1500 ml 600 ml Stool Total 1 ml # Voids 3 Laboratory Tests 03/08/20 00:00: Urine Opiates Screen Negative, Urine Barbiturates Screen Negative, Phencyclidine (PCP) Screen Negative, Urine Amphetamines Screen Negative, Urine Benzodiazepines Screen Negative, Urine Cocaine Screen Negative, Urine Marijuana (THC) Screen Negative Height (Feet): 5 Height (Inches): 1.00 Weight (Pounds): 289 Celso Moreno MD Mar 08, 2020 20:12
--- NOTE | 2020-03-08 23:28 | Pulmonology Progress Note ---
Assessment/Plan Assessment/Plan Pulmonary Progress Note HPI Patient is a 59 year old woman with significant obesity, admitted with bilateral lower extremity cellulitis, had complained of increased swelling and redness to both of her feet and legs Had elevated BNP on admission, persistent edema since admission, worsening hypoxia, LE DVT (right) negative for DVT. Patient is a poor historian reports that she has been having increased weakness over the past several days she tried to stand up and felt too weak Denied any fevers, vomiting or diarrhea, has had previous hospitalizations for cellulitis. Currently being ruled out for COVID 19 VQ pending Being diuresed Allergies: No Known Allergies Past Medical History: Obesity, Cirrhosis, Anemia, Anxiety, Cellulitis All Other Systems: negative except mentioned in HPI Physical Exam Vital Signs Noted General Appearance: Obese, no apparent distress Head: normocephalic, atraumatic Eyes: bilateral eye PERRL, bilateral eye EOMI ENT: EOM grossly intact, moist MM, no LN Respiratory: lungs clear, no respiratory distress, no retraction Cardiovascular: regular rate, rhythm, HS1, HS2 RRR Gastrointestinal: Obese, soft non tender, ND Musculoskeletal: Significant edema and erythema bilateral lower extremity, patient also has blistering/crusting on both feet, Neurologic: alert, oriented x3 Impression: Bilateral Lower Extremity Cellulitis Elevated NPA, severe bilateral edema Worsening hypoxia, elevated PCO2 of 48 Cirrhosis Splenomegaly Anemia Anxiety Plan IV Antibiotics per ID Surgery following for wounds Hematology following for anemia, observing for Neutropenia Diurese PRN Monitor labs Bronchodilators PPX - SCD Echocardiogram VQ scan Await COVID19 results O2 PRN (cannot use BiPAP as COVID R/O) Albuterol PRN Higher level of care Labs Noted Chest X-Ray: Cardiomegaly, left lower lobe atelectasis versus effusion, worsening infiltrates/congestion Subjective ROS Limited/Unobtainable: No Constitutional: Reports: no symptoms Gastrointestinal/Abdominal: Reports: no symptoms Musculoskeletal: Reports: other - decreased pain in legs Allergies: Coded Allergies: No Known Allergies (Unverified , 02/29/20) Objective Last 24 Hour Vital Signs Date Time Temp Pulse Resp B/P (MAP) Pulse Ox O2 Delivery O2 Flow Rate FiO2 03/08/20 16:00 67 03/08/20 16:00 98.1 63 20 131/64 (86) 96 03/08/20 12:00 98.3 65 20 133/65 (87) 96 03/08/20 12:00 65 03/08/20 09:00 Non-Rebreather 10.0 03/08/20 08:00 66 03/08/20 08:00 98.0 66 20 136/64 (88) 98 03/08/20 04:00 97.9 88 19 140/79 (99) 95 03/08/20 04:00 61 03/08/20 00:00 67 03/08/20 00:00 98.0 90 19 108/76 (87) 96 Intake and Output 03/07/20 03/08/20 19:00 07:00 Intake Total 350 ml Output Total 1500 ml 601 ml Balance -1500 ml -251 ml Intake Oral 240 ml IV Total 110 ml Output Urine Total 1500 ml 600 ml Stool Total 1 ml # Voids 3 General Appearance: no acute distress HEENT: mucous membranes moist Abdomen: soft, non tender Extremities: other - legs edea Skin: ulcers, other - feet Neurologic/Psychiatric: alert, responsive Laboratory Tests 03/08/20 00:00: Urine Opiates Screen Negative, Urine Barbiturates Screen Negative, Phencyclidine (PCP) Screen Negative, Urine Amphetamines Screen Negative, Urine Benzodiazepines Screen Negative, Urine Cocaine Screen Negative, Urine Marijuana (THC) Screen Negative Current Medications Medications (Trade) Dose Ordered Sig/Dolores Route PRN Reason Start Time Stop Time Status Last Admin Dose Admin Acetaminophen (Tylenol) 650 mg Q4H PRN ORAL Mild Pain (Pain Scale 1-3) 03/07/20 18:00 03/30/20 17:59 Acetaminophen (Tylenol) 650 mg Q4H PRN ORAL Temp >100 03/07/20 18:00 04/01/20 17:59 Albuterol Sulfate (Proventil MDI) 2 puff Q6HRT INH 03/07/20 19:00 06/05/20 12:59 03/08/20 18:24 Diphenhydramine HCl (Benadryl) 25 mg Q4H PRN ORAL moderate itching 03/07/20 18:00 03/30/20 17:59 03/08/20 22:11 Diphenhydramine HCl (Benadryl) 50 mg Q4H PRN ORAL SEVERE ITCHING 03/07/20 18:00 03/30/20 17:59 Furosemide (Lasix) 20 mg BID IV 03/07/20 18:00 04/06/20 10:29 03/08/20 17:20 Lactulose (Cephulac) 10 gm THREE TIMES A DAY ORAL 03/07/20 18:00 04/01/20 12:59 03/08/20 17:20 Lorazepam (Ativan) 2 mg Q6H PRN ORAL Anxiety 03/07/20 18:15 03/09/20 18:14 Meropenem 1 gm/ Sodium Chloride 55 ml @ 110 mls/hr Q8HR IVPB 03/07/20 22:00 03/10/20 21:59 03/08/20 22:10 Mirtazapine (Remeron) 7.5 mg BEDTIME PRN ORAL SLEEP 03/07/20 18:00 05/31/20 17:59 Morphine Sulfate (Morphine Sulfate) 2 mg Q4H PRN IVP FOR PAIN LEVEL OF 4-10 03/08/20 21:15 03/15/20 21:14 03/08/20 22:11 Rifaximin (Xifaxan) 550 mg EVERY 12 HOURS ORAL 03/07/20 21:00 03/09/20 20:59 03/08/20 22:10 Doron Carrillo MD Mar 08, 2020 23:28
--- NOTE | 2020-03-08 23:35 | Cardiology Progress Note ---
Assessment/Plan Assessment/Plan 1. Noncardiac chest pain, acute myocardial function is ruled out by two negative troponin I levels, 12-lead electrocardiogram does not show any acute ischemic changes. Continue furosemide, awaiting 2D echo to assess LV function. 2. Bilateral lower extremity cellulitis with Pseudomonas aeruginosa in culture. 3. Pancytopenia, most likely due to hepatitis C virus infection/liver cirrhosis. 4. Homeless. Subjective Subjective Sinus rhythm at rate of 67. Objective Last 24 Hour Vital Signs Date Time Temp Pulse Resp B/P (MAP) Pulse Ox O2 Delivery O2 Flow Rate FiO2 03/08/20 16:00 67 03/08/20 16:00 98.1 63 20 131/64 (86) 96 03/08/20 12:00 98.3 65 20 133/65 (87) 96 03/08/20 12:00 65 03/08/20 09:00 Non-Rebreather 10.0 03/08/20 08:00 66 03/08/20 08:00 98.0 66 20 136/64 (88) 98 03/08/20 04:00 97.9 88 19 140/79 (99) 95 03/08/20 04:00 61 03/08/20 00:00 67 03/08/20 00:00 98.0 90 19 108/76 (87) 96 Intake and Output 03/07/20 03/08/20 19:00 07:00 Intake Total 350 ml Output Total 1500 ml 601 ml Balance -1500 ml -251 ml Intake Oral 240 ml IV Total 110 ml Output Urine Total 1500 ml 600 ml Stool Total 1 ml # Voids 3 Laboratory Tests Test 03/08/20 00:00 Urine Opiates Screen Negative (NEGATIVE) Urine Barbiturates Screen Negative (NEGATIVE) Phencyclidine (PCP) Screen Negative (NEGATIVE) Urine Amphetamines Screen Negative (NEGATIVE) Urine Benzodiazepines Screen Negative (NEGATIVE) Urine Cocaine Screen Negative (NEGATIVE) Urine Marijuana (THC) Screen Negative (NEGATIVE) Objective HEENT: Atraumatic and normocephalic. Anicteric. Pupils are equal, round, and reactive to light and accommodation. Extraocular muscles intact. NECK: JVP cannot be assessed. No carotid bruit. Carotid upstroke is 2+ bilaterally. CARDIOVASCULAR: Normal S1, S2. Regular rate and rhythm. No murmurs, gallops, or rubs. PMI is at fourth intercostal space at left midclavicular line. LUNGS: Clear to auscultation bilaterally. ABDOMEN: Soft, nontender, and nondistended. No hepatosplenomegaly. Positive bowel sounds. EXTREMITIES: A 2+ edema bilaterally associated with erythema with blistering and crossing of both feet. Berto Gonzalez MD Mar 08, 2020 23:35
[2020-03-09] VITALS: BP 132/68
--- NOTE | 2020-03-09 00:29 | Progress Note ---
DATE: 03/08/2020 SUBJECTIVE: The patient is doing well. No behavior issues noted. Cooperative. Has anxiety. Compliant with medications. MENTAL STATUS EXAMINATION: The patient is alert and oriented to time, self, place, and situation. Mood is neutral. Affect is flat. Thought process is concrete. Thought content, no suicidal or homicidal ideation. ASSESSMENT: Anxiety disorder. PLAN: 1. We will continue current medications. 2. Provide the patient with reality orientation and supportive therapy. Justice Manriquez M.D. DR: SHO JOB#: [id number] CC:
[2020-03-09] MEDS: Albuterol 90mcg Inhaler 8gm INH SCH ×4 (01:01→18:42)
[2020-03-09] MEDS: Morphine Sulfate 2mg/ml Inj(IV/IM USE ONLY) IVP PRN ×4 (02:31→21:58)
[2020-03-09] MEDS: DiphenhydrAMINE 25mg Tab ORAL PRN ×4 (02:32→21:57)
[2020-03-09 04:00] VITALS: BP 142/69
[2020-03-09] MEDS: Meropenem 1 GM in NS 55 ML IVPB SCH ×3 (06:15→21:58)
[2020-03-09 07:26] LABS: BASOPHILS % (AUTO) 0.6 % (0.0-2.0); EOSINOPHILS % (AUTO) 6.3 % (0.0-3.0); HEMOGLOBIN 9.9 G/DL (12.0-16.0); LYMPHOCYTES % (AUTO) 27.6 % (20.0-45.0); MEAN CORPUSCULAR VOLUME 101 FL (80-99); MONOCYTES % (AUTO) 9.5 % (1.0-10.0); PLATELET COUNT 163 K/UL (150-450); RED BLOOD COUNT 2.98 M/UL (4.20-5.40); RED CELL DISTRIBUTION WIDTH 17.4 % (11.6-14.8); WHITE BLOOD COUNT 3.9 K/UL (4.8-10.8)
[2020-03-09 07:56] LABS: ANION GAP 6 mmol/L (5-15); BLOOD UREA NITROGEN 5 mg/dL (7-18); CALCIUM 8.1 MG/DL (8.5-10.1); CARBON DIOXIDE 28 MMOL/L (21-32); CHLORIDE 102 MMOL/L (98-107); CREATININE 0.6 MG/DL (0.55-1.30); POTASSIUM 3.7 MMOL/L (3.5-5.1); SODIUM 136 MMOL/L (136-145)
[2020-03-09 08:00] VITALS: BP 146/65
[2020-03-09] MEDS: Lactulose 10gm/15ml UDC ORAL SCH ×3 (09:00→17:03)
--- NOTE | 2020-03-09 10:54 | General Progress Note ---
Assessment/Plan Status: progressing Assessment/Plan: macrocytic anemia elevated LFTS cirrhosis cellulitis elevated Ammonia levels abd us>> reviewed lactulose and Xifaxan fu stool ob>>>neg s/p one unit PRBC in this admission GI procedures if needed abx per id hepatitis panel>>>>>positive for hep C>>> needs out patient fu nutrition eval appreciated>>> cardiac diet will fu now COVID 19 positive Subjective ROS Limited/Unobtainable: Yes Allergies: Coded Allergies: No Known Allergies (Unverified , 02/29/20) Objective Last 24 Hour Vital Signs Date Time Temp Pulse Resp B/P (MAP) Pulse Ox O2 Delivery O2 Flow Rate FiO2 03/09/20 08:00 97.4 88 19 146/65 (92) 98 03/09/20 04:00 67 03/09/20 04:00 98.0 70 20 142/69 (93) 94 03/09/20 00:00 72 03/09/20 00:00 97.0 71 22 132/68 (89) 95 03/08/20 21:00 Non-Rebreather 10.0 03/08/20 20:00 97.4 67 20 134/73 (93) 95 03/08/20 20:00 70 03/08/20 16:00 67 03/08/20 16:00 98.1 63 20 131/64 (86) 96 03/08/20 12:00 98.3 65 20 133/65 (87) 96 03/08/20 12:00 65 Intake and Output 03/08/20 03/09/20 19:00 07:00 Intake Total 460 ml Output Total 800 ml 400 ml Balance -800 ml 60 ml Intake Oral 350 ml IV Total 110 ml Output Urine Total 800 ml 400 ml # Voids 3 3 # Bowel Movements 1 2 Laboratory Tests 03/09/20 06:49: White Blood Count 3.9L, Red Blood Count 2.98L, Hemoglobin 9.9L, Hematocrit 30.0L , Mean Corpuscular Volume 101H, Mean Corpuscular Hemoglobin 33.2H, Mean Corpuscular Hemoglobin Concent 33.0, Red Cell Distribution Width 17.4H, Platelet Count 163, Mean Platelet Volume 5.6L, Neutrophils (%) (Auto) 56.0, Lymphocytes (%) (Auto) 27.6, Monocytes (%) (Auto) 9.5, Eosinophils (%) (Auto) 6.3H, Basophils (%) (Auto) 0.6, Sodium Level 136, Potassium Level 3.7, Chloride Level 102, Carbon Dioxide Level 28, Anion Gap 6, Blood Urea Nitrogen 5L, Creatinine 0.6, Estimat Glomerular Filtration Rate > 60, Glucose Level 71L, Calcium Level 8.1L Height (Feet): 5 Height (Inches): 1.00 Weight (Pounds): 264 General Appearance: no apparent distress EENT: normal ENT inspection Neck: normal alignment Cardiovascular: normal peripheral pulses Respiratory/Chest: decreased breath sounds Abdomen: normal bowel sounds, non tender, soft Extremities: non-tender Tam pSicer MD Mar 09, 2020 10:54
[2020-03-09 12:00] VITALS: BP 145/68
--- NOTE | 2020-03-09 12:18 | Infectious Diseases Prog Note ---
Assessment/Plan Assessment/Plan IMPRESSION: 1. Bilateral leg cellulitis,Pseudomonas in culture 2. Anemia. 3. Hypoxemia 4. Thrombocytopenia. 5. Homeless 6. Morbid obesity. 7. Cirrhosis 8. COVID19 pneumonia RECOMMENDATION: continue Meropenem X 1 Patient agreed to take Plaquenil Will f/u VQ scan Subjective ROS Limited/Unobtainable: Yes Constitutional: Denies: fever Allergies: Coded Allergies: No Known Allergies (Unverified , 02/29/20) Objective Vital Signs Last 24 Hour Vital Signs Date Time Temp Pulse Resp B/P (MAP) Pulse Ox O2 Delivery O2 Flow Rate FiO2 03/09/20 08:00 97.4 88 19 146/65 (92) 98 03/09/20 04:00 67 03/09/20 04:00 98.0 70 20 142/69 (93) 94 03/09/20 00:00 72 03/09/20 00:00 97.0 71 22 132/68 (89) 95 03/08/20 21:00 Non-Rebreather 10.0 03/08/20 20:00 97.4 67 20 134/73 (93) 95 03/08/20 20:00 70 03/08/20 16:00 67 03/08/20 16:00 98.1 63 20 131/64 (86) 96 Height (Feet): 5 Height (Inches): 1.00 Weight (Pounds): 264 General Appearance: no acute distress HEENT: mucous membranes moist Respiratory/Chest: other - oxygen by rebreathing mask Cardiovascular: normal rate Abdomen: soft, non tender Extremities: other - legs edema Skin: ulcers, other - feet Neurologic/Psychiatric: other - sleeping Microbiology Date/Time Source Procedure Growth Status 03/07/20 11:00 Nasopharynx Coronavirus COVID-19 PCR (DANIELLA) - Final Complete Laboratory Tests Test 03/09/20 06:49 White Blood Count 3.9 K/UL (4.8-10.8) L Red Blood Count 2.98 M/UL (4.20-5.40) L Hemoglobin 9.9 G/DL (12.0-16.0) L Hematocrit 30.0 % (37.0-47.0) L Mean Corpuscular Volume 101 FL (80-99) H Mean Corpuscular Hemoglobin 33.2 PG (27.0-31.0) H Mean Corpuscular Hemoglobin Concent 33.0 G/DL (32.0-36.0) Red Cell Distribution Width 17.4 % (11.6-14.8) H Platelet Count 163 K/UL (150-450) Mean Platelet Volume 5.6 FL (6.5-10.1) L Neutrophils (%) (Auto) 56.0 % (45.0-75.0) Lymphocytes (%) (Auto) 27.6 % (20.0-45.0) Monocytes (%) (Auto) 9.5 % (1.0-10.0) Eosinophils (%) (Auto) 6.3 % (0.0-3.0) H Basophils (%) (Auto) 0.6 % (0.0-2.0) Sodium Level 136 MMOL/L (136-145) Potassium Level 3.7 MMOL/L (3.5-5.1) Chloride Level 102 MMOL/L (98-107) Carbon Dioxide Level 28 MMOL/L (21-32) Anion Gap 6 mmol/L (5-15) Blood Urea Nitrogen 5 mg/dL (7-18) L Creatinine 0.6 MG/DL (0.55-1.30) Estimat Glomerular Filtration Rate > 60 mL/min (>60) Glucose Level 71 MG/DL (74-106) L Calcium Level 8.1 MG/DL (8.5-10.1) L Current Medications Medications (Trade) Dose Ordered Sig/Dolores Route PRN Reason Start Time Stop Time Status Last Admin Dose Admin Acetaminophen (Tylenol) 650 mg Q4H PRN ORAL Mild Pain (Pain Scale 1-3) 03/07/20 18:00 03/30/20 17:59 Acetaminophen (Tylenol) 650 mg Q4H PRN ORAL Temp >100 03/07/20 18:00 04/01/20 17:59 Albuterol Sulfate (Proventil MDI) 2 puff Q6HRT INH 03/07/20 19:00 06/05/20 12:59 03/09/20 01:01 Diphenhydramine HCl (Benadryl) 25 mg Q4H PRN ORAL moderate itching 03/07/20 18:00 03/30/20 17:59 03/09/20 10:30 Diphenhydramine HCl (Benadryl) 50 mg Q4H PRN ORAL SEVERE ITCHING 03/07/20 18:00 03/30/20 17:59 Furosemide (Lasix) 20 mg BID IV 03/07/20 18:00 04/06/20 10:29 03/09/20 09:07 Lactulose (Cephulac) 10 gm THREE TIMES A DAY ORAL 03/07/20 18:00 04/01/20 12:59 03/08/20 17:20 Lorazepam (Ativan) 2 mg Q6H PRN ORAL Anxiety 03/07/20 18:15 03/09/20 18:14 Meropenem 1 gm/ Sodium Chloride 55 ml @ 110 mls/hr Q8HR IVPB 03/07/20 22:00 03/10/20 21:59 03/09/20 06:15 Mirtazapine (Remeron) 7.5 mg BEDTIME PRN ORAL SLEEP 03/07/20 18:00 05/31/20 17:59 Morphine Sulfate (Morphine Sulfate) 2 mg Q4H PRN IVP FOR PAIN LEVEL OF 4-10 03/08/20 21:15 03/15/20 21:14 03/09/20 10:30 Rifaximin (Xifaxan) 550 mg EVERY 12 HOURS ORAL 03/07/20 21:00 03/09/20 20:59 03/09/20 09:07 Jonathon Shah MD Mar 09, 2020 12:18
[2020-03-09] MEDS ORDERED: Hydroxychloroquine Fact Sheet MISC ONE (12:30)
--- NOTE | 2020-03-09 12:57 | Diagnostic Imaging Report ---
Indications: Shortness of breath Technique: IV administration 5.5 mCi 99m technetium macroaggregated albumin. Images obtained over the lungs in multiple projections. No aerosol images obtained due to patient being COVID-19 positive. Images obtained over the lungs in multiple projections Comparison: Reference made to chest radiograph dated 03/07/2020 Findings: Tracer distribution is slightly heterogeneous, but no focal segmental or subsegmental perfusion defects are demonstrated. Impression: Limited exam, due to lack of aerosol images; unable to assign probability. However, there are no perfusion abnormalities that would suggest acute pulmonary embolus
[2020-03-09] MEDS: Hydroxychloroquine 400mg tab ORAL SCH ×2 (13:30→21:57)
--- NOTE | 2020-03-09 14:03 | Surgery Progress Note ---
Surgery Progress Note Subjective Symptoms: improved, tolerating diet, voiding well, passing flatus, BM Objective Last 24 Hour Vital Signs Date Time Temp Pulse Resp B/P (MAP) Pulse Ox O2 Delivery O2 Flow Rate FiO2 03/09/20 09:00 Non-Rebreather 15.0 03/09/20 08:03 67 03/09/20 08:00 97.4 88 19 146/65 (92) 98 03/09/20 04:00 67 03/09/20 04:00 98.0 70 20 142/69 (93) 94 03/09/20 00:00 72 03/09/20 00:00 97.0 71 22 132/68 (89) 95 03/08/20 21:00 Non-Rebreather 10.0 03/08/20 20:00 97.4 67 20 134/73 (93) 95 03/08/20 20:00 70 03/08/20 16:00 67 03/08/20 16:00 98.1 63 20 131/64 (86) 96 I&O Intake and Output 03/08/20 03/09/20 19:00 07:00 Intake Total 460 ml Output Total 800 ml 400 ml Balance -800 ml 60 ml Intake Oral 350 ml IV Total 110 ml Output Urine Total 800 ml 400 ml # Voids 3 3 # Bowel Movements 1 2 Dressing: dry Wound: clean Cardiovascular: RSR Respiratory: decreased breath sounds Abdomen: soft, non-tender, present bowel sounds Extremities: edema, tenderness, no cyanosis Laboratory Tests Test 03/09/20 06:49 White Blood Count 3.9 K/UL (4.8-10.8) L Red Blood Count 2.98 M/UL (4.20-5.40) L Hemoglobin 9.9 G/DL (12.0-16.0) L Hematocrit 30.0 % (37.0-47.0) L Mean Corpuscular Volume 101 FL (80-99) H Mean Corpuscular Hemoglobin 33.2 PG (27.0-31.0) H Mean Corpuscular Hemoglobin Concent 33.0 G/DL (32.0-36.0) Red Cell Distribution Width 17.4 % (11.6-14.8) H Platelet Count 163 K/UL (150-450) Mean Platelet Volume 5.6 FL (6.5-10.1) L Neutrophils (%) (Auto) 56.0 % (45.0-75.0) Lymphocytes (%) (Auto) 27.6 % (20.0-45.0) Monocytes (%) (Auto) 9.5 % (1.0-10.0) Eosinophils (%) (Auto) 6.3 % (0.0-3.0) H Basophils (%) (Auto) 0.6 % (0.0-2.0) Sodium Level 136 MMOL/L (136-145) Potassium Level 3.7 MMOL/L (3.5-5.1) Chloride Level 102 MMOL/L (98-107) Carbon Dioxide Level 28 MMOL/L (21-32) Anion Gap 6 mmol/L (5-15) Blood Urea Nitrogen 5 mg/dL (7-18) L Creatinine 0.6 MG/DL (0.55-1.30) Estimat Glomerular Filtration Rate > 60 mL/min (>60) Glucose Level 71 MG/DL (74-106) L Calcium Level 8.1 MG/DL (8.5-10.1) L Plan Problems: (1) Cellulitis Assessment & Plan: bilateral lower extremity cellulitis / edema chronic venous status changes dermatitis no abscess no purulent drainage ulcerations forming. keep lower extremity elevated while in bed apply skin protectant / moisturizing cream daily okay to shower okay to wrap soft after cream abx as per ID for cellulitis okay for diet duplex ordered trend labs will follow with recs thank you No evidence of deep venous thrombosis involving the visualized veins of the RIGHT lower extremity. refused eval of left COVID testing cxr noted pending results supportive care Theron Sotomayor Mar 09, 2020 14:03
[2020-03-09 16:00] VITALS: BP 138/86
[2020-03-09 20:00] VITALS: BP 103/58
--- NOTE | 2020-03-09 20:25 | General Progress Note ---
Assessment/Plan Problem List: (1) Cellulitis ICD Codes: L03.90 - Cellulitis, unspecified SNOMED: [id number] Qualifiers: Qualified Codes: L03.119 - Cellulitis of unspecified part of limb Status: progressing Assessment/Plan: pna cellulitis of legs iv antibiotic s check lab Subjective ROS Limited/Unobtainable: Yes Allergies: Coded Allergies: No Known Allergies (Unverified , 02/29/20) Objective Last 24 Hour Vital Signs Date Time Temp Pulse Resp B/P (MAP) Pulse Ox O2 Delivery O2 Flow Rate FiO2 03/09/20 20:00 71 03/09/20 16:34 69 03/09/20 16:00 98.6 59 18 138/86 (103) 97 03/09/20 12:00 98.2 60 19 145/68 (93) 99 03/09/20 11:46 68 03/09/20 09:00 Non-Rebreather 15.0 03/09/20 08:03 67 03/09/20 08:00 97.4 88 19 146/65 (92) 98 03/09/20 04:00 67 03/09/20 04:00 98.0 70 20 142/69 (93) 94 03/09/20 00:00 72 03/09/20 00:00 97.0 71 22 132/68 (89) 95 03/08/20 21:00 Non-Rebreather 10.0 Intake and Output 03/08/20 03/09/20 19:00 07:00 Intake Total 460 ml Output Total 800 ml 400 ml Balance -800 ml 60 ml Intake Oral 350 ml IV Total 110 ml Output Urine Total 800 ml 400 ml # Voids 3 3 # Bowel Movements 1 2 Laboratory Tests 03/09/20 06:49: White Blood Count 3.9L, Red Blood Count 2.98L, Hemoglobin 9.9L, Hematocrit 30.0L , Mean Corpuscular Volume 101H, Mean Corpuscular Hemoglobin 33.2H, Mean Corpuscular Hemoglobin Concent 33.0, Red Cell Distribution Width 17.4H, Platelet Count 163, Mean Platelet Volume 5.6L, Neutrophils (%) (Auto) 56.0, Lymphocytes (%) (Auto) 27.6, Monocytes (%) (Auto) 9.5, Eosinophils (%) (Auto) 6.3H, Basophils (%) (Auto) 0.6, Sodium Level 136, Potassium Level 3.7, Chloride Level 102, Carbon Dioxide Level 28, Anion Gap 6, Blood Urea Nitrogen 5L, Creatinine 0.6, Estimat Glomerular Filtration Rate > 60, Glucose Level 71L, Calcium Level 8.1L Height (Feet): 5 Height (Inches): 1.00 Weight (Pounds): 264 Celso Morneo MD Mar 09, 2020 20:25
--- NOTE | 2020-03-09 20:40 | Hematology/Onc Progress Note ---
Assessment/Plan Assessment/Plan Assessment and Recs # Pancytopenia -- multiple etiologies could be related to underlying liver disease, medication-induced, infection versus viral syndrome versus underlying bone marrow cause, in this case, has severe liver disease and cirrhosis, HEP C++ --> peripheral smear has been ordered and does not show significant abnormalities and none noted --> Medications have been reviewed --> Continue to monitor for improvement, trend cbc --> Hep panel and HIV are both negative --> US abd ordered to r/o cirrhosis and hepatosplenomegaly ->CIRRHOSIS IS NOTED , LARGE SPLEEN --> reverse isolation if ANC is <2000 --> Give neupogen if ANC <1000 --> Transfuse if hgb <7, with 1 unit prbc --> anemia panel ordered as well-->CW acd --> hgb trend 7-->7.1-->8.4-->8.2 -->8.7 --> plt 145k-->152 --> wbc 3.4-->3.5->3.9 --> abx: sameer/rifaximin # Cellulitis of the lower extremities --> continue abx as needed as per id --> Started on IV antibiotics --> as per surg recs, wound care # Elevated LFTS --> as per gi --> due to cirrhosis # Dvt ppx scds The timing of this note does not necessarily reflect the time of the patient was seen. Greatly appreciate consultation. Subjective Constitutional: Denies: no symptoms, chills, fever, malaise, weakness, other HEENT: Denies: no symptoms, eye pain, blurred vision, tearing, double vision, ear pain, ear discharge, nose pain, nose congestion, throat pain, throat swelling, mouth pain, mouth swelling, other Cardiovascular: Denies: no symptoms, chest pain, edema, irregular heart rate, lightheadedness, palpitations, syncope, other Respiratory: Denies: no symptoms, cough, shortness of breath, SOB with excertion, SOB at rest, sputum, wheezing, other Gastrointestinal/Abdominal: Denies: no symptoms, abdomen distended, abdominal pain, black stools, tarry stools, blood in stool, constipated, diarrhea, difficulty swallowing, nausea, poor appetite, poor fluid intake, rectal bleeding , vomiting, other Genitourinary: Denies: no symptoms, burning, discharge, frequency, flank pain, hematuria, incontinence, pain, urgency, other Neurologic/Psychiatric: Denies: no symptoms, anxiety, depressed, emotional problems, headache, numbness, paresthesia, pre-existing deficit, seizure, tingling, tremors, weakness, other Allergies: Coded Allergies: No Known Allergies (Unverified , 02/29/20) Subjective 03/02 no events, no bleeding, hgb 7.1, no hemolysis 03/03 s/p blood, hgb improved to 8.4, stool ob negtive, on abx 03/05 asleep, no acute distress, hgb 8.2 03/06 remains comfortable, on abx, plt remains low 03/07 is on nonrebreather, no night sweats, labs are noted 03/08 labs reviewed, being diuresed, seen by cards, psych, labs noted 03/09 lasix adjusted, wbc remains low at 3.9, reviewed meds, smear Objective Objective Current Medications Medications (Trade) Dose Ordered Sig/Dolores Route PRN Reason Start Time Stop Time Status Last Admin Dose Admin Acetaminophen (Tylenol) 650 mg Q4H PRN ORAL Mild Pain (Pain Scale 1-3) 03/07/20 18:00 03/30/20 17:59 Acetaminophen (Tylenol) 650 mg Q4H PRN ORAL Temp >100 03/07/20 18:00 04/01/20 17:59 Albuterol Sulfate (Proventil MDI) 2 puff Q6HRT INH 03/07/20 19:00 06/05/20 12:59 03/09/20 18:42 Diphenhydramine HCl (Benadryl) 25 mg Q4H PRN ORAL moderate itching 03/07/20 18:00 03/30/20 17:59 03/09/20 17:02 Diphenhydramine HCl (Benadryl) 50 mg Q4H PRN ORAL SEVERE ITCHING 03/07/20 18:00 03/30/20 17:59 Furosemide (Lasix) 40 mg BID IV 03/10/20 09:00 04/06/20 10:29 Hydroxychloroquine Sulfate (Plaquenil) 200 mg Q12HR ORAL 03/10/20 09:00 03/13/20 21:01 Hydroxychloroquine Sulfate (Plaquenil) 400 mg Q12HR ORAL 03/09/20 12:30 03/09/20 21:01 03/09/20 13:30 Lactulose (Cephulac) 10 gm THREE TIMES A DAY ORAL 03/07/20 18:00 04/01/20 12:59 03/09/20 17:03 Meropenem 1 gm/ Sodium Chloride 55 ml @ 110 mls/hr Q8HR IVPB 03/07/20 22:00 03/10/20 21:59 03/09/20 13:32 Mirtazapine (Remeron) 7.5 mg BEDTIME PRN ORAL SLEEP 03/07/20 18:00 05/31/20 17:59 Morphine Sulfate (Morphine Sulfate) 2 mg Q4H PRN IVP FOR PAIN LEVEL OF 4-10 03/08/20 21:15 03/15/20 21:14 03/09/20 17:03 Rifaximin (Xifaxan) 550 mg EVERY 12 HOURS ORAL 03/07/20 21:00 03/09/20 20:59 03/09/20 09:07 Last 24 Hour Vital Signs Date Time Temp Pulse Resp B/P (MAP) Pulse Ox O2 Delivery O2 Flow Rate FiO2 03/09/20 20:00 71 03/09/20 16:34 69 03/09/20 16:00 98.6 59 18 138/86 (103) 97 03/09/20 12:00 98.2 60 19 145/68 (93) 99 03/09/20 11:46 68 03/09/20 09:00 Non-Rebreather 15.0 03/09/20 08:03 67 03/09/20 08:00 97.4 88 19 146/65 (92) 98 03/09/20 04:00 67 03/09/20 04:00 98.0 70 20 142/69 (93) 94 03/09/20 00:00 72 03/09/20 00:00 97.0 71 22 132/68 (89) 95 03/08/20 21:00 Non-Rebreather 10.0 03/08/20 20:00 97.4 67 20 134/73 (93) 95 03/08/20 20:00 70 03/08/20 16:00 67 03/08/20 16:00 98.1 63 20 131/64 (86) 96 03/08/20 12:00 98.3 65 20 133/65 (87) 96 03/08/20 12:00 65 03/08/20 09:00 Non-Rebreather 10.0 03/08/20 08:00 66 03/08/20 08:00 98.0 66 20 136/64 (88) 98 03/08/20 04:00 97.9 88 19 140/79 (99) 95 03/08/20 04:00 61 03/08/20 00:00 67 03/08/20 00:00 98.0 90 19 108/76 (87) 96 03/07/20 21:00 Non-Rebreather 10.0 Intake and Output 03/08/20 03/09/20 19:00 07:00 Intake Total 460 ml Output Total 800 ml 400 ml Balance -800 ml 60 ml Intake Oral 350 ml IV Total 110 ml Output Urine Total 800 ml 400 ml # Voids 3 3 # Bowel Movements 1 2 Labs Test 03/06/20 21:25 03/07/20 05:15 03/07/20 10:17 03/08/20 00:00 Troponin I 0.007 ng/mL (0.000-0.056) White Blood Count 3.5 K/UL (4.8-10.8) Red Blood Count 2.78 M/UL (4.20-5.40) Hemoglobin 9.3 G/DL (12.0-16.0) Hematocrit 27.7 % (37.0-47.0) Mean Corpuscular Volume 100 FL (80-99) Mean Corpuscular Hemoglobin 33.4 PG (27.0-31.0) Mean Corpuscular Hemoglobin Concent 33.5 G/DL (32.0-36.0) Red Cell Distribution Width 17.5 % (11.6-14.8) Platelet Count 162 K/UL (150-450) Mean Platelet Volume 6.2 FL (6.5-10.1) Neutrophils (%) (Auto) 51.4 % (45.0-75.0) Lymphocytes (%) (Auto) 32.2 % (20.0-45.0) Monocytes (%) (Auto) 6.9 % (1.0-10.0) Eosinophils (%) (Auto) 8.5 % (0.0-3.0) Basophils (%) (Auto) 1.1 % (0.0-2.0) Sodium Level 136 MMOL/L (136-145) Potassium Level 3.6 MMOL/L (3.5-5.1) Chloride Level 103 MMOL/L (98-107) Carbon Dioxide Level 27 MMOL/L (21-32) Anion Gap 6 mmol/L (5-15) Blood Urea Nitrogen 3 mg/dL (7-18) Creatinine 0.6 MG/DL (0.55-1.30) Estimat Glomerular Filtration Rate > 60 mL/min (>60) Glucose Level 83 MG/DL (74-106) Calcium Level 7.7 MG/DL (8.5-10.1) Arterial Blood pH 7.379 (7.350-7.450) Arterial Blood Partial Pressure CO2 48.6 mmHg (35.0-45.0) Arterial Blood Partial Pressure O2 72.4 mmHg (75.0-100.0) Arterial Blood HCO3 28.0 mmol/L (22.0-26.0) Arterial Blood Oxygen Saturation 93.9 % (95-100) Arterial Blood Base Excess 2.4 (-2-2) Joaquin Test Positive Urine Opiates Screen Negative (NEGATIVE) Urine Barbiturates Screen Negative (NEGATIVE) Phencyclidine (PCP) Screen Negative (NEGATIVE) Urine Amphetamines Screen Negative (NEGATIVE) Urine Benzodiazepines Screen Negative (NEGATIVE) Urine Cocaine Screen Negative (NEGATIVE) Urine Marijuana (THC) Screen Negative (NEGATIVE) Test 03/09/20 06:49 White Blood Count 3.9 K/UL (4.8-10.8) Red Blood Count 2.98 M/UL (4.20-5.40) Hemoglobin 9.9 G/DL (12.0-16.0) Hematocrit 30.0 % (37.0-47.0) Mean Corpuscular Volume 101 FL (80-99) Mean Corpuscular Hemoglobin 33.2 PG (27.0-31.0) Mean Corpuscular Hemoglobin Concent 33.0 G/DL (32.0-36.0) Red Cell Distribution Width 17.4 % (11.6-14.8) Platelet Count 163 K/UL (150-450) Mean Platelet Volume 5.6 FL (6.5-10.1) Neutrophils (%) (Auto) 56.0 % (45.0-75.0) Lymphocytes (%) (Auto) 27.6 % (20.0-45.0) Monocytes (%) (Auto) 9.5 % (1.0-10.0) Eosinophils (%) (Auto) 6.3 % (0.0-3.0) Basophils (%) (Auto) 0.6 % (0.0-2.0) Sodium Level 136 MMOL/L (136-145) Potassium Level 3.7 MMOL/L (3.5-5.1) Chloride Level 102 MMOL/L (98-107) Carbon Dioxide Level 28 MMOL/L (21-32) Anion Gap 6 mmol/L (5-15) Blood Urea Nitrogen 5 mg/dL (7-18) Creatinine 0.6 MG/DL (0.55-1.30) Estimat Glomerular Filtration Rate > 60 mL/min (>60) Glucose Level 71 MG/DL (74-106) Calcium Level 8.1 MG/DL (8.5-10.1) Height (Feet): 5 Height (Inches): 1.00 Weight (Pounds): 264 Objective Physical Exam: Vitals: reviewed General: NAD HEENT: nc, at Neck: supple Chest: clear breath sounds bilaterally Cardiovascular: RRR, no s3, s4 EXT ++ Significant edema and erythema bilateral lower extremity, patient also has blistering on both feet given the edema, whittish overcrust/crusting++ Neurologic: alert, oriented x3 Skin: other - As above Brett Mcclain MD Mar 09, 2020 20:40
--- NOTE | 2020-03-09 21:00 | Cardiology Progress Note ---
Assessment/Plan Assessment/Plan 1. Noncardiac chest pain, acute myocardial function is ruled out by two negative troponin I levels, 12-lead electrocardiogram does not show any acute ischemic changes. Continue furosemide, awaiting 2D echo to assess LV function. 2. Bilateral lower extremity cellulitis with Pseudomonas aeruginosa in culture. 3. Pancytopenia, most likely due to hepatitis C virus infection/liver cirrhosis. 4. Homeless. Subjective Subjective Sinus rhythm at rate of 71. Objective Last 24 Hour Vital Signs Date Time Temp Pulse Resp B/P (MAP) Pulse Ox O2 Delivery O2 Flow Rate FiO2 03/09/20 20:00 71 03/09/20 16:34 69 03/09/20 16:00 98.6 59 18 138/86 (103) 97 03/09/20 12:00 98.2 60 19 145/68 (93) 99 03/09/20 11:46 68 03/09/20 09:00 Non-Rebreather 15.0 03/09/20 08:03 67 03/09/20 08:00 97.4 88 19 146/65 (92) 98 03/09/20 04:00 67 03/09/20 04:00 98.0 70 20 142/69 (93) 94 03/09/20 00:00 72 03/09/20 00:00 97.0 71 22 132/68 (89) 95 03/08/20 21:00 Non-Rebreather 10.0 Intake and Output 03/08/20 03/09/20 19:00 07:00 Intake Total 460 ml Output Total 800 ml 400 ml Balance -800 ml 60 ml Intake Oral 350 ml IV Total 110 ml Output Urine Total 800 ml 400 ml # Voids 3 3 # Bowel Movements 1 2 Laboratory Tests Test 03/09/20 06:49 White Blood Count 3.9 K/UL (4.8-10.8) L Red Blood Count 2.98 M/UL (4.20-5.40) L Hemoglobin 9.9 G/DL (12.0-16.0) L Hematocrit 30.0 % (37.0-47.0) L Mean Corpuscular Volume 101 FL (80-99) H Mean Corpuscular Hemoglobin 33.2 PG (27.0-31.0) H Mean Corpuscular Hemoglobin Concent 33.0 G/DL (32.0-36.0) Red Cell Distribution Width 17.4 % (11.6-14.8) H Platelet Count 163 K/UL (150-450) Mean Platelet Volume 5.6 FL (6.5-10.1) L Neutrophils (%) (Auto) 56.0 % (45.0-75.0) Lymphocytes (%) (Auto) 27.6 % (20.0-45.0) Monocytes (%) (Auto) 9.5 % (1.0-10.0) Eosinophils (%) (Auto) 6.3 % (0.0-3.0) H Basophils (%) (Auto) 0.6 % (0.0-2.0) Sodium Level 136 MMOL/L (136-145) Potassium Level 3.7 MMOL/L (3.5-5.1) Chloride Level 102 MMOL/L (98-107) Carbon Dioxide Level 28 MMOL/L (21-32) Anion Gap 6 mmol/L (5-15) Blood Urea Nitrogen 5 mg/dL (7-18) L Creatinine 0.6 MG/DL (0.55-1.30) Estimat Glomerular Filtration Rate > 60 mL/min (>60) Glucose Level 71 MG/DL (74-106) L Calcium Level 8.1 MG/DL (8.5-10.1) L Microbiology Date/Time Source Procedure Growth Status 03/07/20 11:00 Nasopharynx Coronavirus COVID-19 PCR ([facility]) - Final Complete Objective HEENT: Atraumatic and normocephalic. Anicteric. Pupils are equal, round, and reactive to light and accommodation. Extraocular muscles intact. NECK: JVP cannot be assessed. No carotid bruit. Carotid upstroke is 2+ bilaterally. CARDIOVASCULAR: Normal S1, S2. Regular rate and rhythm. No murmurs, gallops, or rubs. PMI is at fourth intercostal space at left midclavicular line. LUNGS: Clear to auscultation bilaterally. ABDOMEN: Soft, nontender, and nondistended. No hepatosplenomegaly. Positive bowel sounds. EXTREMITIES: A 2+ edema bilaterally associated with erythema with blistering and crossing of both feet. Berto Gonzalez MD Mar 09, 2020 21:00
--- NOTE | 2020-03-09 23:49 | Pulmonology Progress Note ---
Assessment/Plan Assessment/Plan Pulmonary Progress Note HPI Patient is a 59 year old woman with significant obesity, admitted with bilateral lower extremity cellulitis, had complained of increased swelling and redness to both of her feet and legs Had elevated BNP on admission, persistent edema since admission, worsening hypoxia, LE DVT (right) negative for DVT. Patient is a poor historian reports that she has been having increased weakness over the past several days she tried to stand up and felt too weak Denied any fevers, vomiting or diarrhea, has had previous hospitalizations for cellulitis. COVID 19 positive VQ no significant perfusion abnormality Being diuresed Allergies: No Known Allergies Past Medical History: Obesity, Cirrhosis, Anemia, Anxiety, Cellulitis All Other Systems: negative except mentioned in HPI Physical Exam Vital Signs Noted General Appearance: Obese, no apparent distress Head: normocephalic, atraumatic Eyes: bilateral eye PERRL, bilateral eye EOMI ENT: EOM grossly intact, moist MM, no LN Respiratory: lungs clear, no respiratory distress, no retraction Cardiovascular: regular rate, rhythm, HS1, HS2 RRR Gastrointestinal: Obese, soft non tender, ND Musculoskeletal: Significant edema and erythema bilateral lower extremity, patient also has blistering/crusting on both feet, Neurologic: alert, oriented x3 Impression: Bilateral Lower Extremity Cellulitis Elevated NPA, severe bilateral edema Covid Pneumonia Worsening hypoxia, elevated PCO2 of 48 Cirrhosis Splenomegaly Anemia Anxiety Plan IV Antibiotics per ID Surgery following for wounds Hematology following for anemia, observing for Neutropenia Diurese PRN Monitor labs Bronchodilators PPX - SCD Echocardiogram O2 PRN (cannot use BiPAP as COVID PNA) Albuterol PRN Labs Noted Chest X-Ray: Cardiomegaly, left lower lobe atelectasis versus effusion, worsening infiltrates/congestion Subjective ROS Limited/Unobtainable: No Constitutional: Denies: fever Gastrointestinal/Abdominal: Reports: no symptoms Musculoskeletal: Reports: other - decreased pain in legs Allergies: Coded Allergies: No Known Allergies (Unverified , 02/29/20) Objective Last 24 Hour Vital Signs Date Time Temp Pulse Resp B/P (MAP) Pulse Ox O2 Delivery O2 Flow Rate FiO2 03/09/20 22:28 98.6 03/09/20 20:00 97.6 72 20 103/58 (73) 96 03/09/20 20:00 71 03/09/20 16:34 69 03/09/20 16:00 98.6 59 18 138/86 (103) 97 03/09/20 12:00 98.2 60 19 145/68 (93) 99 03/09/20 11:46 68 03/09/20 09:00 Non-Rebreather 15.0 03/09/20 08:03 67 03/09/20 08:00 97.4 88 19 146/65 (92) 98 03/09/20 04:00 67 03/09/20 04:00 98.0 70 20 142/69 (93) 94 03/09/20 00:00 72 03/09/20 00:00 97.0 71 22 132/68 (89) 95 Intake and Output 03/08/20 03/09/20 19:00 07:00 Intake Total 460 ml Output Total 800 ml 400 ml Balance -800 ml 60 ml Intake Oral 350 ml IV Total 110 ml Output Urine Total 800 ml 400 ml # Voids 3 3 # Bowel Movements 1 2 General Appearance: no acute distress HEENT: mucous membranes moist Abdomen: soft, non tender Extremities: other - legs edema Skin: ulcers, other - feet Neurologic/Psychiatric: other - sleeping Microbiology Date/Time Source Procedure Growth Status 03/07/20 11:00 Nasopharynx Coronavirus COVID-19 PCR ([facility]) - Final Complete Laboratory Tests 03/09/20 06:49: White Blood Count 3.9L, Red Blood Count 2.98L, Hemoglobin 9.9L, Hematocrit 30.0L , Mean Corpuscular Volume 101H, Mean Corpuscular Hemoglobin 33.2H, Mean Corpuscular Hemoglobin Concent 33.0, Red Cell Distribution Width 17.4H, Platelet Count 163, Mean Platelet Volume 5.6L, Neutrophils (%) (Auto) 56.0, Lymphocytes (%) (Auto) 27.6, Monocytes (%) (Auto) 9.5, Eosinophils (%) (Auto) 6.3H, Basophils (%) (Auto) 0.6, Sodium Level 136, Potassium Level 3.7, Chloride Level 102, Carbon Dioxide Level 28, Anion Gap 6, Blood Urea Nitrogen 5L, Creatinine 0.6, Estimat Glomerular Filtration Rate > 60, Glucose Level 71L, Calcium Level 8.1L Current Medications Medications (Trade) Dose Ordered Sig/Dolores Route PRN Reason Start Time Stop Time Status Last Admin Dose Admin Acetaminophen (Tylenol) 650 mg Q4H PRN ORAL Mild Pain (Pain Scale 1-3) 03/07/20 18:00 03/30/20 17:59 Acetaminophen (Tylenol) 650 mg Q4H PRN ORAL Temp >100 03/07/20 18:00 04/01/20 17:59 Albuterol Sulfate (Proventil MDI) 2 puff Q6HRT INH 03/07/20 19:00 06/05/20 12:59 03/09/20 18:42 Diphenhydramine HCl (Benadryl) 25 mg Q4H PRN ORAL moderate itching 03/07/20 18:00 03/30/20 17:59 03/09/20 21:57 Diphenhydramine HCl (Benadryl) 50 mg Q4H PRN ORAL SEVERE ITCHING 03/07/20 18:00 03/30/20 17:59 Furosemide (Lasix) 40 mg BID IV 03/10/20 09:00 04/06/20 10:29 Hydroxychloroquine Sulfate (Plaquenil) 200 mg Q12HR ORAL 03/10/20 09:00 03/13/20 21:01 Lactulose (Cephulac) 10 gm THREE TIMES A DAY ORAL 03/07/20 18:00 04/01/20 12:59 03/09/20 17:03 Meropenem 1 gm/ Sodium Chloride 55 ml @ 110 mls/hr Q8HR IVPB 03/07/20 22:00 03/10/20 21:59 03/09/20 21:58 Mirtazapine (Remeron) 7.5 mg BEDTIME PRN ORAL SLEEP 03/07/20 18:00 05/31/20 17:59 Morphine Sulfate (Morphine Sulfate) 2 mg Q4H PRN IVP FOR PAIN LEVEL OF 4-10 03/08/20 21:15 03/15/20 21:14 03/09/20 21:58 Doron Carrillo MD Mar 09, 2020 23:49
[2020-03-10] VITALS: BP 110/62
[2020-03-10] MEDS: Albuterol 90mcg Inhaler 8gm INH SCH ×4 (01:00→19:07)
[2020-03-10] MEDS: DiphenhydrAMINE 25mg Tab ORAL PRN ×3 (03:50→14:17)
[2020-03-10] MEDS: Morphine Sulfate 2mg/ml Inj(IV/IM USE ONLY) IVP PRN ×4 (03:50→20:25)
[2020-03-10 04:00] VITALS: BP 123/76
--- NOTE | 2020-03-10 04:45 | Progress Note ---
DATE: 03/09/2020 SUBJECTIVE: The patient is in bed, no acute distress noted. Able to answer the questions. Has a history of anxiety. MENTAL STATUS EXAMINATION: Show alert and oriented to times self, place, and situation. Mood is anxious. Affect is constricted. Congruent mood. Thought process is concrete. Thought content, no suicidal or homicidal ideation. ASSESSMENT: Anxiety disorder. PLAN: Continue current psychotropic. Justice Manriquez M.D. DR: Praveen JOB#: [id number] CC:
[2020-03-10] MEDS: Meropenem 1 GM in NS 55 ML IVPB SCH ×2 (05:41→14:17)
--- NOTE | 2020-03-10 06:06 | Hematology/Onc Progress Note ---
Assessment/Plan Assessment/Plan Assessment and Recs # Pancytopenia -- multiple etiologies could be related to underlying liver disease, medication-induced, infection versus viral syndrome versus underlying bone marrow cause, in this case, has severe liver disease and cirrhosis, HEP C++ --> peripheral smear has been ordered and does not show significant abnormalities and none noted --> Medications have been reviewed --> Continue to monitor for improvement, trend cbc --> Hep panel and HIV are both negative --> US abd ordered to r/o cirrhosis and hepatosplenomegaly ->CIRRHOSIS IS NOTED , LARGE SPLEEN --> reverse isolation if ANC is <2000 --> Give neupogen if ANC <1000 --> Transfuse if hgb <7, with 1 unit prbc --> anemia panel ordered as well-->CW acd --> hgb trend 7-->7.1-->8.4-->8.2 -->8.7-->9.9 --> plt 145k-->152-->162k --> wbc 3.4-->3.5->3.9 --> abx: sameer/rifaximin # Cellulitis of the lower extremities --> continue abx as needed as per id --> Started on IV antibiotics --> as per surg recs, wound care # Ftt --> remains on mirtazapine # Elevated LFTS --> as per gi --> due to cirrhosis # Dvt ppx scds The timing of this note does not necessarily reflect the time of the patient was seen. Greatly appreciate consultation. Subjective HEENT: Denies: no symptoms, eye pain, blurred vision, tearing, double vision, ear pain, ear discharge, nose pain, nose congestion, throat pain, throat swelling, mouth pain, mouth swelling, other Cardiovascular: Denies: no symptoms, chest pain, edema, irregular heart rate, lightheadedness, palpitations, syncope, other Respiratory: Denies: no symptoms, cough, shortness of breath, SOB with excertion, SOB at rest, sputum, wheezing, other Gastrointestinal/Abdominal: Denies: no symptoms, abdomen distended, abdominal pain, black stools, tarry stools, blood in stool, constipated, diarrhea, difficulty swallowing, nausea, poor appetite, poor fluid intake, rectal bleeding , vomiting, other Genitourinary: Denies: no symptoms, burning, discharge, frequency, flank pain, hematuria, incontinence, pain, urgency, other Neurologic/Psychiatric: Denies: no symptoms, anxiety, depressed, emotional problems, headache, numbness, paresthesia, pre-existing deficit, seizure, tingling, tremors, weakness, other Endocrine: Denies: no symptoms, excessive sweating, flushing, intolerance to cold, intolerance to heat, increased hunger, increased thirst, increased urine, unexplained weight gain, unexplained weight loss, other Allergies: Coded Allergies: No Known Allergies (Unverified , 02/29/20) Subjective 03/02 no events, no bleeding, hgb 7.1, no hemolysis 03/03 s/p blood, hgb improved to 8.4, stool ob negtive, on abx 03/05 asleep, no acute distress, hgb 8.2 03/06 remains comfortable, on abx, plt remains low 03/07 is on nonrebreather, no night sweats, labs are noted 03/08 labs reviewed, being diuresed, seen by cards, psych, labs noted 03/09 lasix adjusted, wbc remains low at 3.9, reviewed meds, smear 03/10 no night sweats, no bleeding, labs noted, smear noted Objective Objective Current Medications Medications (Trade) Dose Ordered Sig/Dolores Route PRN Reason Start Time Stop Time Status Last Admin Dose Admin Acetaminophen (Tylenol) 650 mg Q4H PRN ORAL Mild Pain (Pain Scale 1-3) 03/07/20 18:00 03/30/20 17:59 Acetaminophen (Tylenol) 650 mg Q4H PRN ORAL Temp >100 03/07/20 18:00 04/01/20 17:59 Albuterol Sulfate (Proventil MDI) 2 puff Q6HRT INH 03/07/20 19:00 06/05/20 12:59 03/09/20 18:42 Diphenhydramine HCl (Benadryl) 25 mg Q4H PRN ORAL moderate itching 03/07/20 18:00 03/30/20 17:59 03/10/20 03:50 Diphenhydramine HCl (Benadryl) 50 mg Q4H PRN ORAL SEVERE ITCHING 03/07/20 18:00 03/30/20 17:59 Furosemide (Lasix) 40 mg BID IV 03/10/20 09:00 04/06/20 10:29 Hydroxychloroquine Sulfate (Plaquenil) 200 mg Q12HR ORAL 03/10/20 09:00 03/13/20 21:01 Lactulose (Cephulac) 10 gm THREE TIMES A DAY ORAL 03/07/20 18:00 04/01/20 12:59 03/09/20 17:03 Meropenem 1 gm/ Sodium Chloride 55 ml @ 110 mls/hr Q8HR IVPB 03/07/20 22:00 03/10/20 21:59 03/10/20 05:41 Mirtazapine (Remeron) 7.5 mg BEDTIME PRN ORAL SLEEP 03/07/20 18:00 05/31/20 17:59 Morphine Sulfate (Morphine Sulfate) 2 mg Q4H PRN IVP FOR PAIN LEVEL OF 4-10 03/08/20 21:15 03/15/20 21:14 03/10/20 03:50 Last 24 Hour Vital Signs Date Time Temp Pulse Resp B/P (MAP) Pulse Ox O2 Delivery O2 Flow Rate FiO2 03/10/20 04:33 97.5 03/10/20 04:00 65 03/10/20 04:00 97.3 76 20 123/76 (92) 98 03/10/20 00:00 97.5 79 20 110/62 (78) 96 03/10/20 00:00 71 03/09/20 21:00 Non-Rebreather 15.0 Non-Rebreather 15.0 03/09/20 20:00 97.6 72 20 103/58 (73) 96 03/09/20 20:00 71 03/09/20 16:34 69 03/09/20 16:00 98.6 59 18 138/86 (103) 97 03/09/20 12:00 98.2 60 19 145/68 (93) 99 03/09/20 11:46 68 03/09/20 09:00 Non-Rebreather 15.0 03/09/20 08:03 67 03/09/20 08:00 97.4 88 19 146/65 (92) 98 03/09/20 04:00 67 03/09/20 04:00 98.0 70 20 142/69 (93) 94 4/23/20 00:00 72 03/09/20 00:00 97.0 71 22 132/68 (89) 95 03/08/20 21:00 Non-Rebreather 10.0 03/08/20 20:00 97.4 67 20 134/73 (93) 95 03/08/20 20:00 70 03/08/20 16:00 67 03/08/20 16:00 98.1 63 20 131/64 (86) 96 03/08/20 12:00 98.3 65 20 133/65 (87) 96 03/08/20 12:00 65 03/08/20 09:00 Non-Rebreather 10.0 03/08/20 08:00 66 03/08/20 08:00 98.0 66 20 136/64 (88) 98 Intake and Output 03/09/20 03/10/20 19:00 07:00 Intake Total 140 ml Output Total 1400 ml Balance -1260 ml Intake Oral 140 ml Output Urine Total 1400 ml # Voids 3 Labs Test 03/07/20 10:17 03/08/20 00:00 03/09/20 06:49 Arterial Blood pH 7.379 (7.350-7.450) Arterial Blood Partial Pressure CO2 48.6 mmHg (35.0-45.0) Arterial Blood Partial Pressure O2 72.4 mmHg (75.0-100.0) Arterial Blood HCO3 28.0 mmol/L (22.0-26.0) Arterial Blood Oxygen Saturation 93.9 % (95-100) Arterial Blood Base Excess 2.4 (-2-2) Joaquin Test Positive Urine Opiates Screen Negative (NEGATIVE) Urine Barbiturates Screen Negative (NEGATIVE) Phencyclidine (PCP) Screen Negative (NEGATIVE) Urine Amphetamines Screen Negative (NEGATIVE) Urine Benzodiazepines Screen Negative (NEGATIVE) Urine Cocaine Screen Negative (NEGATIVE) Urine Marijuana (THC) Screen Negative (NEGATIVE) White Blood Count 3.9 K/UL (4.8-10.8) Red Blood Count 2.98 M/UL (4.20-5.40) Hemoglobin 9.9 G/DL (12.0-16.0) Hematocrit 30.0 % (37.0-47.0) Mean Corpuscular Volume 101 FL (80-99) Mean Corpuscular Hemoglobin 33.2 PG (27.0-31.0) Mean Corpuscular Hemoglobin Concent 33.0 G/DL (32.0-36.0) Red Cell Distribution Width 17.4 % (11.6-14.8) Platelet Count 163 K/UL (150-450) Mean Platelet Volume 5.6 FL (6.5-10.1) Neutrophils (%) (Auto) 56.0 % (45.0-75.0) Lymphocytes (%) (Auto) 27.6 % (20.0-45.0) Monocytes (%) (Auto) 9.5 % (1.0-10.0) Eosinophils (%) (Auto) 6.3 % (0.0-3.0) Basophils (%) (Auto) 0.6 % (0.0-2.0) Sodium Level 136 MMOL/L (136-145) Potassium Level 3.7 MMOL/L (3.5-5.1) Chloride Level 102 MMOL/L (98-107) Carbon Dioxide Level 28 MMOL/L (21-32) Anion Gap 6 mmol/L (5-15) Blood Urea Nitrogen 5 mg/dL (7-18) Creatinine 0.6 MG/DL (0.55-1.30) Estimat Glomerular Filtration Rate > 60 mL/min (>60) Glucose Level 71 MG/DL (74-106) Calcium Level 8.1 MG/DL (8.5-10.1) Height (Feet): 5 Height (Inches): 1.00 Weight (Pounds): 264 Objective Physical Exam: Vitals: reviewed General: NAD HEENT: nc, at Neck: supple Chest: clear breath sounds bilaterally Cardiovascular: RRR, no s3, s4 EXT ++ Significant edema and erythema bilateral lower extremity, patient also has blistering on both feet given the edema, whittish overcrust/crusting++ Neurologic: alert, oriented x3 Skin: other - As above Brett Mcclain MD Mar 10, 2020 06:06
[2020-03-10 08:00] VITALS: BP 133/64
[2020-03-10] MEDS: Lactulose 10gm/15ml UDC ORAL SCH ×4 (09:00→17:27)
--- NOTE | 2020-03-10 11:18 | Infectious Diseases Prog Note ---
Assessment/Plan Assessment/Plan IMPRESSION: 1. Bilateral leg cellulitis,Pseudomonas in culture 2. Anemia. 3. Hypoxemia 4. Thrombocytopenia. 5. Homeless 6. Morbid obesity. 7. Cirrhosis 8. COVID19 pneumonia RECOMMENDATION: continue Meropenem until tonight Continue Plaquenil Negative VQ scan Subjective ROS Limited/Unobtainable: Yes Constitutional: Denies: fever Allergies: Coded Allergies: No Known Allergies (Unverified , 02/29/20) Objective Vital Signs Last 24 Hour Vital Signs Date Time Temp Pulse Resp B/P (MAP) Pulse Ox O2 Delivery O2 Flow Rate FiO2 03/10/20 08:00 98.3 74 20 133/64 (87) 98 03/10/20 07:45 68 03/10/20 04:33 97.5 03/10/20 04:00 65 03/10/20 04:00 97.3 76 20 123/76 (92) 98 03/10/20 00:00 97.5 79 20 110/62 (78) 96 03/10/20 00:00 71 03/09/20 21:00 Non-Rebreather 15.0 Non-Rebreather 15.0 03/09/20 20:00 97.6 72 20 103/58 (73) 96 03/09/20 20:00 71 03/09/20 16:34 69 03/09/20 16:00 98.6 59 18 138/86 (103) 97 03/09/20 12:00 98.2 60 19 145/68 (93) 99 03/09/20 11:46 68 Height (Feet): 5 Height (Inches): 1.00 Weight (Pounds): 264 General Appearance: no acute distress HEENT: mucous membranes moist Respiratory/Chest: other - oxygen by rebreathing mask Cardiovascular: normal rate Abdomen: soft, non tender Extremities: other - legs edema Neurologic/Psychiatric: other - sleeping Laboratory Tests Test 03/10/20 08:22 Arterial Blood pH 7.403 (7.350-7.450) Arterial Blood Partial Pressure CO2 53.8 mmHg (35.0-45.0) H Arterial Blood Partial Pressure O2 56.2 mmHg (75.0-100.0) L Arterial Blood HCO3 32.8 mmol/L (22.0-26.0) H Arterial Blood Oxygen Saturation 88.5 % (95-100) *L Arterial Blood Base Excess 6.5 (-2-2) H Joaquin Test Positive Current Medications Medications (Trade) Dose Ordered Sig/Dolores Route PRN Reason Start Time Stop Time Status Last Admin Dose Admin Acetaminophen (Tylenol) 650 mg Q4H PRN ORAL Mild Pain (Pain Scale 1-3) 03/07/20 18:00 03/30/20 17:59 Acetaminophen (Tylenol) 650 mg Q4H PRN ORAL Temp >100 03/07/20 18:00 04/01/20 17:59 Albuterol Sulfate (Proventil MDI) 2 puff Q6HRT INH 03/07/20 19:00 06/05/20 12:59 03/10/20 06:41 Diphenhydramine HCl (Benadryl) 25 mg Q4H PRN ORAL moderate itching 03/07/20 18:00 03/30/20 17:59 03/10/20 09:10 Diphenhydramine HCl (Benadryl) 50 mg Q4H PRN ORAL SEVERE ITCHING 03/07/20 18:00 03/30/20 17:59 Furosemide (Lasix) 40 mg BID IV 03/10/20 09:00 04/06/20 10:29 03/10/20 09:10 Hydroxychloroquine Sulfate (Plaquenil) 200 mg Q12HR ORAL 03/10/20 09:00 03/13/20 21:01 03/10/20 09:10 Lactulose (Cephulac) 10 gm THREE TIMES A DAY ORAL 03/07/20 18:00 04/01/20 12:59 03/10/20 09:10 Meropenem 1 gm/ Sodium Chloride 55 ml @ 110 mls/hr Q8HR IVPB 03/07/20 22:00 03/10/20 21:59 03/10/20 05:41 Mirtazapine (Remeron) 7.5 mg BEDTIME PRN ORAL SLEEP 03/07/20 18:00 05/31/20 17:59 Morphine Sulfate (Morphine Sulfate) 2 mg Q4H PRN IVP FOR PAIN LEVEL OF 4-10 03/08/20 21:15 03/15/20 21:14 03/10/20 09:13 Jonathon Shah MD Mar 10, 2020 11:18
[2020-03-10 12:00] VITALS: BP 130/56
--- NOTE | 2020-03-10 13:14 | General Progress Note ---
Assessment/Plan Status: progressing Assessment/Plan: macrocytic anemia elevated LFTS cirrhosis cellulitis elevated Ammonia levels abd us>> reviewed lactulose and Xifaxan fu stool ob>>>neg s/p one unit PRBC in this admission GI procedures if needed abx per id hepatitis panel>>>>>positive for hep C>>> needs out patient fu nutrition eval appreciated>>> cardiac diet will fu now COVID 19 positive Subjective ROS Limited/Unobtainable: No Allergies: Coded Allergies: No Known Allergies (Unverified , 02/29/20) Objective Last 24 Hour Vital Signs Date Time Temp Pulse Resp B/P (MAP) Pulse Ox O2 Delivery O2 Flow Rate FiO2 03/10/20 12:00 96.6 71 19 130/56 (80) 96 03/10/20 12:00 72 03/10/20 09:00 Non-Rebreather 15.0 Non-Rebreather 15.0 03/10/20 08:00 98.3 74 20 133/64 (87) 98 03/10/20 07:45 68 03/10/20 04:33 97.5 03/10/20 04:00 65 03/10/20 04:00 97.3 76 20 123/76 (92) 98 03/10/20 00:00 97.5 79 20 110/62 (78) 96 03/10/20 00:00 71 03/09/20 21:00 Non-Rebreather 15.0 Non-Rebreather 15.0 03/09/20 20:00 97.6 72 20 103/58 (73) 96 03/09/20 20:00 71 03/09/20 16:34 69 03/09/20 16:00 98.6 59 18 138/86 (103) 97 Intake and Output 03/09/20 03/10/20 19:00 07:00 Intake Total 140 ml 240 ml Output Total 1400 ml 250 ml Balance -1260 ml -10 ml Intake Oral 140 ml 240 ml Output Urine Total 1400 ml 250 ml # Voids 3 Laboratory Tests 03/10/20 08:22: Arterial Blood pH 7.403, Arterial Blood Partial Pressure CO2 53.8H, Arterial Blood Partial Pressure O2 56.2L, Arterial Blood HCO3 32.8H, Arterial Blood Oxygen Saturation 88.5*L, Arterial Blood Base Excess 6.5H, Joaquin Test Positive Height (Feet): 5 Height (Inches): 1.00 Weight (Pounds): 264 General Appearance: no apparent distress EENT: normal ENT inspection Neck: supple Cardiovascular: normal rate Respiratory/Chest: decreased breath sounds Abdomen: normal bowel sounds, non tender, soft Extremities: non-tender Tam Spicer MD Mar 10, 2020 13:14
--- NOTE | 2020-03-10 13:24 | Surgery Progress Note ---
Surgery Progress Note Subjective Additional Comments no acute events labs reviewed exam stable no complaints Objective Last 24 Hour Vital Signs Date Time Temp Pulse Resp B/P (MAP) Pulse Ox O2 Delivery O2 Flow Rate FiO2 03/10/20 12:00 96.6 71 19 130/56 (80) 96 03/10/20 12:00 72 03/10/20 09:00 Non-Rebreather 15.0 Non-Rebreather 15.0 03/10/20 08:00 98.3 74 20 133/64 (87) 98 03/10/20 07:45 68 03/10/20 04:33 97.5 03/10/20 04:00 65 03/10/20 04:00 97.3 76 20 123/76 (92) 98 03/10/20 00:00 97.5 79 20 110/62 (78) 96 03/10/20 00:00 71 03/09/20 21:00 Non-Rebreather 15.0 Non-Rebreather 15.0 03/09/20 20:00 97.6 72 20 103/58 (73) 96 03/09/20 20:00 71 03/09/20 16:34 69 03/09/20 16:00 98.6 59 18 138/86 (103) 97 I&O Intake and Output 03/09/20 03/10/20 19:00 07:00 Intake Total 140 ml 240 ml Output Total 1400 ml 250 ml Balance -1260 ml -10 ml Intake Oral 140 ml 240 ml Output Urine Total 1400 ml 250 ml # Voids 3 Dressing: other Wound: other Drains: other Cardiovascular: RSR Respiratory: decreased breath sounds Abdomen: soft, non-tender, present bowel sounds Extremities: edema, tenderness, no cyanosis Laboratory Tests Test 03/10/20 08:22 Arterial Blood pH 7.403 (7.350-7.450) Arterial Blood Partial Pressure CO2 53.8 mmHg (35.0-45.0) H Arterial Blood Partial Pressure O2 56.2 mmHg (75.0-100.0) L Arterial Blood HCO3 32.8 mmol/L (22.0-26.0) H Arterial Blood Oxygen Saturation 88.5 % (95-100) *L Arterial Blood Base Excess 6.5 (-2-2) H Joaquin Test Positive Plan Problems: (1) Cellulitis Assessment & Plan: bilateral lower extremity cellulitis / edema chronic venous status changes dermatitis no abscess no purulent drainage ulcerations forming. keep lower extremity elevated while in bed apply skin protectant / moisturizing cream daily okay to shower okay to wrap soft after cream abx as per ID for cellulitis okay for diet duplex ordered trend labs will follow with recs thank you No evidence of deep venous thrombosis involving the visualized veins of the RIGHT lower extremity. refused eval of left COVID testing cxr noted pending results supportive care Theron Sotomayor Mar 10, 2020 13:24
[2020-03-10 16:00] VITALS: BP 132/88
[2020-03-10 20:00] VITALS: BP 136/64
--- NOTE | 2020-03-10 21:08 | General Progress Note ---
Assessment/Plan Problem List: (1) Cellulitis ICD Codes: L03.90 - Cellulitis, unspecified SNOMED: 978361425 Qualifiers: Qualified Codes: L03.119 - Cellulitis of unspecified part of limb Status: progressing Assessment/Plan: cellulitis of legs iv antibiotic afebrile s/p hypoxic sepsis reviewed chart Subjective ROS Limited/Unobtainable: Yes Allergies: Coded Allergies: No Known Allergies (Unverified , 02/29/20) Objective Last 24 Hour Vital Signs Date Time Temp Pulse Resp B/P (MAP) Pulse Ox O2 Delivery O2 Flow Rate FiO2 03/10/20 16:15 68 03/10/20 16:00 96.8 86 18 132/88 (103) 98 03/10/20 12:00 96.6 71 19 130/56 (80) 96 03/10/20 12:00 72 03/10/20 09:00 Non-Rebreather 15.0 Non-Rebreather 15.0 03/10/20 08:00 98.3 74 20 133/64 (87) 98 03/10/20 07:45 68 03/10/20 04:33 97.5 03/10/20 04:00 65 03/10/20 04:00 97.3 76 20 123/76 (92) 98 03/10/20 00:00 97.5 79 20 110/62 (78) 96 03/10/20 00:00 71 Intake and Output 03/09/20 03/10/20 19:00 07:00 Intake Total 140 ml 240 ml Output Total 1400 ml 250 ml Balance -1260 ml -10 ml Intake Oral 140 ml 240 ml Output Urine Total 1400 ml 250 ml # Voids 3 Laboratory Tests 03/10/20 08:22: Arterial Blood pH 7.403, Arterial Blood Partial Pressure CO2 53.8H, Arterial Blood Partial Pressure O2 56.2L, Arterial Blood HCO3 32.8H, Arterial Blood Oxygen Saturation 88.5*L, Arterial Blood Base Excess 6.5H, Joaquin Test Positive Height (Feet): 5 Height (Inches): 1.00 Weight (Pounds): 264 Celso Moreno MD Mar 10, 2020 21:08
[2020-03-11] VITALS: BP 124/67
[2020-03-11] MEDS: Albuterol 90mcg Inhaler 8gm INH SCH ×4 (00:38→18:13)
[2020-03-11] MEDS: Morphine Sulfate 2mg/ml Inj(IV/IM USE ONLY) IVP PRN ×5 (01:17→22:34)
[2020-03-11] MEDS: DiphenhydrAMINE 25mg Tab ORAL PRN ×2 (01:17→21:46)
--- NOTE | 2020-03-11 02:06 | Pulmonology Progress Note ---
Assessment/Plan Assessment/Plan Pulmonary Progress Note HPI Patient is a 59 year old woman with significant obesity, admitted with bilateral lower extremity cellulitis, had complained of increased swelling and redness to both of her feet and legs Had elevated BNP on admission, persistent edema since admission, worsening hypoxia, LE DVT (right) negative for DVT. 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 COVID 19 positive, Pneumonia VQ no significant perfusion abnormality Being diuresed, worsening infiltrates on CXR High oxygen requirements Seen on 03/10/2020 Allergies: No Known Allergies Past Medical History: Obesity, Cirrhosis, Anemia, Anxiety, Cellulitis All Other Systems: negative except mentioned in HPI Physical Exam Vital Signs Noted General Appearance: Obese, no apparent distress Head: normocephalic, atraumatic Eyes: bilateral eye PERRL, bilateral eye EOMI ENT: EOM grossly intact, moist MM, no LN Respiratory: lungs clear, no respiratory distress, no retraction Cardiovascular: regular rate, rhythm, HS1, HS2 RRR Gastrointestinal: Obese, soft non tender, ND Musculoskeletal: Significant edema and erythema bilateral lower extremity, patient also has blistering/crusting on both feet, Neurologic: alert, oriented x3 Impression: Bilateral Lower Extremity Cellulitis Elevated NPA, severe bilateral edema Covid Pneumonia Worsening hypoxia, elevated PCO2 of 48 Cirrhosis Splenomegaly Anemia Anxiety Plan IV Antibiotics per ID Surgery following for wounds Hematology following for anemia, observing for Neutropenia Diurese PRN Monitor labs Bronchodilators PPX - SCD Echocardiogram O2 PRN (cannot use BiPAP as COVID PNA) Albuterol PRN Labs Noted Chest X-Ray: Cardiomegaly, left lower lobe atelectasis versus effusion, worsening infiltrates/congestion Subjective ROS Limited/Unobtainable: No Constitutional: Denies: fever Gastrointestinal/Abdominal: Reports: no symptoms Musculoskeletal: Reports: other - decreased pain in legs Allergies: Coded Allergies: No Known Allergies (Unverified , 02/29/20) Objective Last 24 Hour Vital Signs Date Time Temp Pulse Resp B/P (MAP) Pulse Ox O2 Delivery O2 Flow Rate FiO2 03/11/20 01:47 96.8 03/11/20 00:00 75 03/11/20 00:00 97.9 78 18 124/67 (86) 94 03/10/20 21:00 Non-Rebreather 15.0 Non-Rebreather 15.0 03/10/20 20:00 97.9 77 20 136/64 (88) 92 03/10/20 20:00 72 03/10/20 16:15 68 03/10/20 16:00 96.8 86 18 132/88 (103) 98 03/10/20 12:00 96.6 71 19 130/56 (80) 96 03/10/20 12:00 72 03/10/20 09:00 Non-Rebreather 15.0 Non-Rebreather 15.0 03/10/20 08:00 98.3 74 20 133/64 (87) 98 03/10/20 07:45 68 03/10/20 04:00 65 03/10/20 04:00 97.3 76 20 123/76 (92) 98 Intake and Output 03/10/20 03/11/20 18:59 06:59 Intake Total 480 ml Balance 480 ml Intake Oral 480 ml # Voids 6 # Bowel Movements 1 General Appearance: no acute distress HEENT: mucous membranes moist Abdomen: soft, non tender Extremities: other - legs edema Skin: ulcers, other - feet Neurologic/Psychiatric: other - sleeping Laboratory Tests 03/10/20 08:22: Arterial Blood pH 7.403, Arterial Blood Partial Pressure CO2 53.8H, Arterial Blood Partial Pressure O2 56.2L, Arterial Blood HCO3 32.8H, Arterial Blood Oxygen Saturation 88.5*L, Arterial Blood Base Excess 6.5H, Joaquin Test Positive Current Medications Medications (Trade) Dose Ordered Sig/Dolores Route PRN Reason Start Time Stop Time Status Last Admin Dose Admin Acetaminophen (Tylenol) 650 mg Q4H PRN ORAL Mild Pain (Pain Scale 1-3) 03/07/20 18:00 03/30/20 17:59 Acetaminophen (Tylenol) 650 mg Q4H PRN ORAL Temp >100 03/07/20 18:00 04/01/20 17:59 Albuterol Sulfate (Proventil MDI) 2 puff Q6HRT INH 03/07/20 19:00 06/05/20 12:59 03/11/20 00:38 Diphenhydramine HCl (Benadryl) 25 mg Q4H PRN ORAL moderate itching 03/07/20 18:00 03/30/20 17:59 03/11/20 01:17 Diphenhydramine HCl (Benadryl) 50 mg Q4H PRN ORAL SEVERE ITCHING 03/07/20 18:00 03/30/20 17:59 Furosemide (Lasix) 40 mg BID IV 03/10/20 09:00 04/06/20 10:29 03/10/20 17:28 Hydroxychloroquine Sulfate (Plaquenil) 200 mg Q12HR ORAL 03/10/20 09:00 03/13/20 21:01 03/10/20 20:24 Lactulose (Cephulac) 10 gm THREE TIMES A DAY ORAL 03/07/20 18:00 04/01/20 12:59 03/09/20 17:03 Mirtazapine (Remeron) 7.5 mg BEDTIME PRN ORAL SLEEP 03/07/20 18:00 05/31/20 17:59 Morphine Sulfate (Morphine Sulfate) 2 mg Q4H PRN IVP FOR PAIN LEVEL OF 4-10 03/08/20 21:15 03/15/20 21:14 03/11/20 01:17 Doron Carrillo MD Mar 11, 2020 02:06
[2020-03-11 04:00] VITALS: BP 119/62
[2020-03-11 08:00] VITALS: BP 117/66
[2020-03-11] MEDS: Lactulose 10gm/15ml UDC ORAL SCH ×4 (08:42→18:12)
[2020-03-11 12:00] VITALS: BP 106/65
--- NOTE | 2020-03-11 12:42 | GI Progress Note ---
Assessment/Plan Problems: (1) Macrocytic anemia ICD Codes: D53.9 - Nutritional anemia, unspecified SNOMED: 55891259 (2) Respiratory distress ICD Codes: R06.03 - Acute respiratory distress SNOMED: 632160511 Status: unchanged Status Narrative Discussed with Dr. Spicer. Assessment/Plan macrocytic anemia elevated LFTS cirrhosis cellulitis elevated Ammonia levels abd us>> reviewed fu stool ob>>>neg now COVID 19 positive s/p one unit PRBC in this admission lactulose and Xifaxan GI procedures if needed abx per id hepatitis panel>>>>>positive for hep C>>> needs out patient fu nutrition eval appreciated>>> cardiac diet will fu The patient was seen and examined at bedside and all new and available data was reviewed in the patients chart. I agree with the above findings, impression and plan. (Patient seen earlier today. Signature stamp does not reflect patient encounter time.). - Tam Spicer MD Subjective Gastrointestinal/Abdominal: Reports: no symptoms Objective Last 24 Hour Vital Signs Date Time Temp Pulse Resp B/P (MAP) Pulse Ox O2 Delivery O2 Flow Rate FiO2 03/11/20 09:00 Non-Rebreather 15.0 Non-Rebreather 15.0 03/11/20 08:00 71 03/11/20 08:00 98.2 72 22 117/66 (83) 95 03/11/20 06:25 97.6 03/11/20 04:00 71 03/11/20 04:00 97.6 73 17 119/62 (81) 94 03/11/20 00:00 75 03/11/20 00:00 97.9 78 18 124/67 (86) 94 03/10/20 21:00 Non-Rebreather 15.0 Non-Rebreather 15.0 03/10/20 20:00 97.9 77 20 136/64 (88) 92 03/10/20 20:00 72 03/10/20 16:15 68 03/10/20 16:00 96.8 86 18 132/88 (103) 98 Intake and Output 03/10/20 03/11/20 19:00 07:00 Intake Total 480 ml Balance 480 ml Intake Oral 480 ml # Voids 6 5 # Bowel Movements 1 Height (Feet): 5 Height (Inches): 1.00 Weight (Pounds): 264 General Appearance: WD/WN, no apparent distress, alert Cardiovascular: normal rate Respiratory/Chest: normal breath sounds, no respiratory distress Abdominal Exam: normal bowel sounds, non tender, soft Extremities: non-tender Kym Snow NP Mar 11, 2020 12:42
[2020-03-11 16:00] VITALS: BP 107/64
--- NOTE | 2020-03-11 19:27 | Surgery Progress Note ---
Surgery Progress Note Subjective Additional Comments non rebreather no acute events Objective Last 24 Hour Vital Signs Date Time Temp Pulse Resp B/P (MAP) Pulse Ox O2 Delivery O2 Flow Rate FiO2 03/11/20 16:00 97.4 71 22 107/64 (78) 95 03/11/20 16:00 71 03/11/20 12:00 98.1 71 22 106/65 (79) 95 03/11/20 12:00 68 03/11/20 09:00 Non-Rebreather 15.0 Non-Rebreather 15.0 03/11/20 08:00 71 03/11/20 08:00 98.2 72 22 117/66 (83) 95 03/11/20 06:25 97.6 03/11/20 04:00 71 03/11/20 04:00 97.6 73 17 119/62 (81) 94 03/11/20 00:00 75 03/11/20 00:00 97.9 78 18 124/67 (86) 94 03/10/20 21:00 Non-Rebreather 15.0 Non-Rebreather 15.0 03/10/20 20:00 97.9 77 20 136/64 (88) 92 03/10/20 20:00 72 I&O Intake and Output 03/10/20 03/11/20 19:00 07:00 Intake Total 480 ml Balance 480 ml Intake Oral 480 ml # Voids 6 5 # Bowel Movements 1 Dressing: other Wound: other Drains: other Cardiovascular: RSR Respiratory: decreased breath sounds Abdomen: soft, non-tender, present bowel sounds Extremities: edema, no tenderness, no cyanosis Plan Problems: (1) Cellulitis Assessment & Plan: bilateral lower extremity cellulitis / edema chronic venous status changes dermatitis no abscess no purulent drainage ulcerations forming. keep lower extremity elevated while in bed apply skin protectant / moisturizing cream daily okay to shower okay to wrap soft after cream abx as per ID for cellulitis okay for diet duplex ordered trend labs will follow with recs thank you No evidence of deep venous thrombosis involving the visualized veins of the RIGHT lower extremity. refused eval of left COVID ++ cxr noted cont current supportive care Theron Sotomayor Mar 11, 2020 19:27
--- NOTE | 2020-03-11 19:58 | General Progress Note ---
Assessment/Plan Problem List: (1) Cellulitis ICD Codes: L03.90 - Cellulitis, unspecified SNOMED: 415789512 Qualifiers: Qualified Codes: L03.119 - Cellulitis of unspecified part of limb Status: progressing, unchanged Assessment/Plan: cellulitis of legs suportive therapy reivewd chart and labs s/p hypoxic sepsis Subjective ROS Limited/Unobtainable: Yes Allergies: Coded Allergies: No Known Allergies (Unverified , 02/29/20) Objective Last 24 Hour Vital Signs Date Time Temp Pulse Resp B/P (MAP) Pulse Ox O2 Delivery O2 Flow Rate FiO2 03/11/20 16:00 97.4 71 22 107/64 (78) 95 03/11/20 16:00 71 03/11/20 12:00 98.1 71 22 106/65 (79) 95 03/11/20 12:00 68 03/11/20 09:00 Non-Rebreather 15.0 Non-Rebreather 15.0 03/11/20 08:00 71 03/11/20 08:00 98.2 72 22 117/66 (83) 95 03/11/20 06:25 97.6 03/11/20 04:00 71 03/11/20 04:00 97.6 73 17 119/62 (81) 94 03/11/20 00:00 75 03/11/20 00:00 97.9 78 18 124/67 (86) 94 03/10/20 21:00 Non-Rebreather 15.0 Non-Rebreather 15.0 03/10/20 20:00 97.9 77 20 136/64 (88) 92 03/10/20 20:00 72 Intake and Output 03/10/20 03/11/20 19:00 07:00 Intake Total 480 ml Balance 480 ml Intake Oral 480 ml # Voids 6 5 # Bowel Movements 1 Height (Feet): 5 Height (Inches): 1.00 Weight (Pounds): 264 Celso Moreno MD Mar 11, 2020 19:58
[2020-03-11 20:00] VITALS: BP 109/58
--- NOTE | 2020-03-11 22:14 | Psych Consult Progress Note ---
Psychiatry Progress Note Psychiatry Progress Note Medications Current Medications Medications (Trade) Dose Ordered Sig/Dolores Route PRN Reason Start Time Stop Time Status Last Admin Dose Admin Acetaminophen (Tylenol) 650 mg Q4H PRN ORAL Mild Pain (Pain Scale 1-3) 03/07/20 18:00 03/30/20 17:59 Acetaminophen (Tylenol) 650 mg Q4H PRN ORAL Temp >100 03/07/20 18:00 04/01/20 17:59 Albuterol Sulfate (Proventil MDI) 2 puff Q6HRT INH 03/07/20 19:00 06/05/20 12:59 03/11/20 18:13 Diphenhydramine HCl (Benadryl) 25 mg Q4H PRN ORAL moderate itching 03/07/20 18:00 03/30/20 17:59 03/11/20 21:46 Diphenhydramine HCl (Benadryl) 50 mg Q4H PRN ORAL SEVERE ITCHING 03/07/20 18:00 03/30/20 17:59 Furosemide (Lasix) 40 mg BID IV 03/10/20 09:00 04/06/20 10:29 03/11/20 18:12 Hydroxychloroquine Sulfate (Plaquenil) 200 mg Q12HR ORAL 03/10/20 09:00 03/13/20 21:01 03/11/20 21:00 Lactulose (Cephulac) 10 gm THREE TIMES A DAY ORAL 03/07/20 18:00 04/01/20 12:59 03/11/20 18:12 Mirtazapine (Remeron) 7.5 mg BEDTIME PRN ORAL SLEEP 03/07/20 18:00 05/31/20 17:59 Morphine Sulfate (Morphine Sulfate) 2 mg Q4H PRN IVP FOR PAIN LEVEL OF 4-10 03/08/20 21:15 03/15/20 21:14 03/11/20 18:13 Allergies: Coded Allergies: No Known Allergies (Unverified , 02/29/20) Objective Data Height (Feet): 5 Height (Inches): 1.00 Weight (Pounds): 264 Assessment/Plan Status: progressing, unchanged Assessment/Plan: ativan prn provided ro/Justice Walter MD Mar 11, 2020 22:14
--- NOTE | 2020-03-11 22:30 | Progress Note ---
DATE: 03/11/2020 SUBJECTIVE: The patient is in no acute distress. She has some anxiety, overall improving. noted calm and cooperative. MENTAL STATUS EXAMINATION: Alert and oriented to times self, place, situation. Mood is neutral. Affect is flat. Thought process is concrete. Thought content, no suicidal or homicidal ideation. ASSESSMENT: Stable. PLAN: 1. We will continue current medications. 2. Provide the patient with reality orientation. Justice Manriquez M.D. DR: ANA JOB#: [id number] CC:
--- NOTE | 2020-03-11 23:09 | Cardiology Progress Note ---
Assessment/Plan Assessment/Plan 1. Noncardiac chest pain, acute myocardial function is ruled out by two negative troponin I levels, 12-lead electrocardiogram does not show any acute ischemic changes. Continue furosemide, 2D echo was rejected by the cardiology department due to positive COVID-19 status. 2. Bilateral lower extremity cellulitis with Pseudomonas aeruginosa in culture. 3. Pancytopenia, most likely due to hepatitis C virus infection/liver cirrhosis. 4. Homeless. Subjective Subjective Sinus rhythm at rate of 71. Objective Last 24 Hour Vital Signs Date Time Temp Pulse Resp B/P (MAP) Pulse Ox O2 Delivery O2 Flow Rate FiO2 03/11/20 16:00 97.4 71 22 107/64 (78) 95 03/11/20 16:00 71 03/11/20 12:00 98.1 71 22 106/65 (79) 95 03/11/20 12:00 68 03/11/20 09:00 Non-Rebreather 15.0 Non-Rebreather 15.0 03/11/20 08:00 71 03/11/20 08:00 98.2 72 22 117/66 (83) 95 03/11/20 06:25 97.6 03/11/20 04:00 71 03/11/20 04:00 97.6 73 17 119/62 (81) 94 03/11/20 00:00 75 03/11/20 00:00 97.9 78 18 124/67 (86) 94 Intake and Output 03/10/20 03/11/20 19:00 07:00 Intake Total 480 ml Balance 480 ml Intake Oral 480 ml # Voids 6 5 # Bowel Movements 1 Objective HEENT: Atraumatic and normocephalic. Anicteric. Pupils are equal, round, and reactive to light and accommodation. Extraocular muscles intact. NECK: JVP cannot be assessed. No carotid bruit. Carotid upstroke is 2+ bilaterally. CARDIOVASCULAR: Normal S1, S2. Regular rate and rhythm. No murmurs, gallops, or rubs. PMI is at fourth intercostal space at left midclavicular line. LUNGS: Clear to auscultation bilaterally. ABDOMEN: Soft, nontender, and nondistended. No hepatosplenomegaly. Positive bowel sounds. EXTREMITIES: A 2+ edema bilaterally associated with erythema with blistering and crossing of both feet. Berto Gonzalez MD Mar 11, 2020:09
--- NOTE | 2020-03-11 23:41 | Pulmonology Progress Note ---
Assessment/Plan Assessment/Plan Pulmonary Progress Note HPI Patient is a 59 year old woman with significant obesity, admitted with bilateral lower extremity cellulitis, had complained of increased swelling and redness to both of her feet and legs Had elevated BNP on admission, persistent edema since admission, worsening hypoxia, LE DVT (right) negative for DVT. Patient is a poor historian reports that she has been having increased weakness over the past several days [employer], enied any fevers, vomiting or diarrhea, has had previous hospitalizations for cellulitis. COVID 19 positive, Pneumonia VQ no significant perfusion abnormality Being diuresed, worsening infiltrates on CXR High oxygen requirements - on NRB Allergies: No Known Allergies Past Medical History: Obesity, Cirrhosis, Anemia, Anxiety, Cellulitis All Other Systems: negative except mentioned in HPI Physical Exam Vital Signs Noted General Appearance: Obese, no apparent distress Head: normocephalic, atraumatic Eyes: bilateral eye PERRL, bilateral eye EOMI ENT: EOM grossly intact, moist MM, no LN Respiratory: lungs clear, no respiratory distress, no retraction Cardiovascular: regular rate, rhythm, HS1, HS2 RRR Gastrointestinal: Obese, soft non tender, ND Musculoskeletal: Significant edema and erythema bilateral lower extremity, patient also has blistering/crusting on both feet, Neurologic: alert, oriented x3 Impression: Bilateral Lower Extremity Cellulitis Elevated NPA, severe bilateral edema Covid Pneumonia Worsening hypoxia, elevated PCO2 of 48 Cirrhosis Splenomegaly Anemia Anxiety Plan IV Antibiotics per ID Surgery following for wounds Hematology following for anemia, observing for Neutropenia Diurese PRN Monitor labs Bronchodilators PPX - SCD Echocardiogram O2 PRN (cannot use BiPAP as COVID PNA) Albuterol PRN Labs Noted Chest X-Ray: Cardiomegaly, left lower lobe atelectasis versus effusion, worsening infiltrates/congestion Subjective ROS Limited/Unobtainable: No Constitutional: Denies: fever Gastrointestinal/Abdominal: Reports: no symptoms Musculoskeletal: Reports: other - decreased pain in legs Allergies: Coded Allergies: No Known Allergies (Unverified , 02/29/20) Objective Last 24 Hour Vital Signs Date Time Temp Pulse Resp B/P (MAP) Pulse Ox O2 Delivery O2 Flow Rate FiO2 03/11/20 16:00 97.4 71 22 107/64 (78) 95 03/11/20 16:00 71 03/11/20 12:00 98.1 71 22 106/65 (79) 95 03/11/20 12:00 68 03/11/20 09:00 Non-Rebreather 15.0 Non-Rebreather 15.0 03/11/20 08:00 71 03/11/20 08:00 98.2 72 22 117/66 (83) 95 03/11/20 06:25 97.6 03/11/20 04:00 71 03/11/20 04:00 97.6 73 17 119/62 (81) 94 03/11/20 00:00 75 03/11/20 00:00 97.9 78 18 124/67 (86) 94 Intake and Output 03/10/20 03/11/20 19:00 07:00 Intake Total 480 ml Balance 480 ml Intake Oral 480 ml # Voids 6 5 # Bowel Movements 1 General Appearance: no acute distress HEENT: mucous membranes moist Abdomen: soft, non tender Extremities: other - legs edema Skin: ulcers, other - feet Neurologic/Psychiatric: other - sleeping Current Medications Medications (Trade) Dose Ordered Sig/Dolores Route PRN Reason Start Time Stop Time Status Last Admin Dose Admin Acetaminophen (Tylenol) 650 mg Q4H PRN ORAL Mild Pain (Pain Scale 1-3) 03/07/20 18:00 03/30/20 17:59 Acetaminophen (Tylenol) 650 mg Q4H PRN ORAL Temp >100 03/07/20 18:00 04/01/20 17:59 Albuterol Sulfate (Proventil MDI) 2 puff Q6HRT INH 03/07/20 19:00 06/05/20 12:59 03/11/20 18:13 Diphenhydramine HCl (Benadryl) 25 mg Q4H PRN ORAL moderate itching 03/07/20 18:00 03/30/20 17:59 03/11/20 21:46 Diphenhydramine HCl (Benadryl) 50 mg Q4H PRN ORAL SEVERE ITCHING 03/07/20 18:00 03/30/20 17:59 Furosemide (Lasix) 40 mg BID IV 03/10/20 09:00 04/06/20 10:29 03/11/20 18:12 Hydroxychloroquine Sulfate (Plaquenil) 200 mg Q12HR ORAL 03/10/20 09:00 03/13/20 21:01 03/11/20 21:00 Lactulose (Cephulac) 10 gm THREE TIMES A DAY ORAL 03/07/20 18:00 04/01/20 12:59 03/11/20 18:12 Mirtazapine (Remeron) 7.5 mg BEDTIME PRN ORAL SLEEP 03/07/20 18:00 05/31/20 17:59 Morphine Sulfate (Morphine Sulfate) 2 mg Q4H PRN IVP FOR PAIN LEVEL OF 4-10 03/08/20 21:15 03/15/20 21:14 03/11/20 22:34 Doron Carrillo MD Mar 11, 2020 23:41
[2020-03-12] VITALS: BP 114/61
[2020-03-12] MEDS: Albuterol 90mcg Inhaler 8gm INH SCH ×6 (01:21→19:01)
[2020-03-12 04:00] VITALS: BP 127/70
[2020-03-12] MEDS: Morphine Sulfate 2mg/ml Inj(IV/IM USE ONLY) IVP PRN ×3 (06:32→21:06)
--- NOTE | 2020-03-12 06:34 | Hematology/Onc Progress Note ---
Assessment/Plan Assessment/Plan Assessment and Recs # Pancytopenia -- multiple etiologies could be related to underlying liver disease, medication-induced, infection versus viral syndrome versus underlying bone marrow cause, in this case, has severe liver disease and cirrhosis, HEP C++ , also cellulitis --> peripheral smear has been ordered and does not show significant abnormalities and none noted --> Medications have been reviewed --> Continue to monitor for improvement, trend cbc --> Hep panel and HIV are both negative --> US abd ordered to r/o cirrhosis and hepatosplenomegaly ->CIRRHOSIS IS NOTED , LARGE SPLEEN --> reverse isolation if ANC is <2000 --> Give neupogen if ANC <1000 --> Transfuse if hgb <7, with 1 unit prbc --> anemia panel ordered as well-->CW acd --> hgb trend 7-->7.1-->8.4-->8.2 -->8.7-->9.9 --> plt 145k-->152-->162k --> wbc 3.4-->3.5->3.9 --> abx: sameer/rifaximin # Cellulitis of the lower extremities --> continue abx as needed as per id --> Started on IV antibiotics --> as per surg recs, wound care # Ftt --> remains on mirtazapine # Elevated LFTS --> as per gi --> due to cirrhosis # Dvt ppx lovenox sq The timing of this note does not necessarily reflect the time of the patient was seen. Greatly appreciate consultation. Subjective HEENT: Denies: no symptoms, eye pain, blurred vision, tearing, double vision, ear pain, ear discharge, nose pain, nose congestion, throat pain, throat swelling, mouth pain, mouth swelling, other Cardiovascular: Denies: no symptoms, chest pain, edema, irregular heart rate, lightheadedness, palpitations, syncope, other Respiratory: Denies: no symptoms, cough, shortness of breath, SOB with excertion, SOB at rest, sputum, wheezing, other Gastrointestinal/Abdominal: Denies: no symptoms, abdomen distended, abdominal pain, black stools, tarry stools, blood in stool, constipated, diarrhea, difficulty swallowing, nausea, poor appetite, poor fluid intake, rectal bleeding , vomiting, other Neurologic/Psychiatric: Denies: no symptoms, anxiety, depressed, emotional problems, headache, numbness, paresthesia, pre-existing deficit, seizure, tingling, tremors, weakness, other Endocrine: Denies: no symptoms, excessive sweating, flushing, intolerance to cold, intolerance to heat, increased hunger, increased thirst, increased urine, unexplained weight gain, unexplained weight loss, other Hematologic/Lymphatic: Denies: no symptoms, anemia, easy bleeding, easy bruising, adenopathy, other Allergies: Coded Allergies: No Known Allergies (Unverified , 02/29/20) Subjective 03/02 no events, no bleeding, hgb 7.1, no hemolysis 03/03 s/p blood, hgb improved to 8.4, stool ob negtive, on abx 03/05 asleep, no acute distress, hgb 8.2 03/06 remains comfortable, on abx, plt remains low 03/07 is on nonrebreather, no night sweats, labs are noted 03/08 labs reviewed, being diuresed, seen by cards, psych, labs noted 03/09 lasix adjusted, wbc remains low at 3.9, reviewed meds, smear 03/10 no night sweats, no bleeding, labs noted, smear noted 03/12 labs noted, none completed, have reordered, cellulitis better Objective Objective Current Medications Medications (Trade) Dose Ordered Sig/Dolores Route PRN Reason Start Time Stop Time Status Last Admin Dose Admin Acetaminophen (Tylenol) 650 mg Q4H PRN ORAL Mild Pain (Pain Scale 1-3) 03/07/20 18:00 03/30/20 17:59 Acetaminophen (Tylenol) 650 mg Q4H PRN ORAL Temp >100 03/07/20 18:00 04/01/20 17:59 Albuterol Sulfate (Proventil MDI) 2 puff Q6HRT INH 03/07/20 19:00 06/05/20 12:59 03/12/20 01:21 Diphenhydramine HCl (Benadryl) 25 mg Q4H PRN ORAL moderate itching 03/07/20 18:00 03/30/20 17:59 03/11/20 21:46 Diphenhydramine HCl (Benadryl) 50 mg Q4H PRN ORAL SEVERE ITCHING 03/07/20 18:00 03/30/20 17:59 Furosemide (Lasix) 40 mg BID IV 03/10/20 09:00 04/06/20 10:29 03/11/20 18:12 Hydroxychloroquine Sulfate (Plaquenil) 200 mg Q12HR ORAL 03/10/20 09:00 03/13/20 21:01 03/11/20 21:00 Lactulose (Cephulac) 10 gm THREE TIMES A DAY ORAL 03/07/20 18:00 04/01/20 12:59 03/11/20 18:12 Mirtazapine (Remeron) 7.5 mg BEDTIME PRN ORAL SLEEP 03/07/20 18:00 05/31/20 17:59 Morphine Sulfate (Morphine Sulfate) 2 mg Q4H PRN IVP FOR PAIN LEVEL OF 4-10 03/08/20 21:15 03/15/20 21:14 03/12/20 06:32 Last 24 Hour Vital Signs Date Time Temp Pulse Resp B/P (MAP) Pulse Ox O2 Delivery O2 Flow Rate FiO2 03/12/20 00:00 67 03/12/20 00:00 98.2 69 19 114/61 (78) 94 03/11/20 21:00 Non-Rebreather 15.0 Non-Rebreather 15.0 03/11/20 20:00 97.5 70 18 109/58 (75) 92 03/11/20 20:00 67 03/11/20 16:00 97.4 71 22 107/64 (78) 95 03/11/20 16:00 71 03/11/20 12:00 98.1 71 22 106/65 (79) 95 03/11/20 12:00 68 03/11/20 09:00 Non-Rebreather 15.0 Non-Rebreather 15.0 03/11/20 08:00 71 03/11/20 08:00 98.2 72 22 117/66 (83) 95 03/11/20 06:25 97.6 03/11/20 04:00 71 03/11/20 04:00 97.6 73 17 119/62 (81) 94 03/11/20 00:00 75 03/11/20 00:00 97.9 78 18 124/67 (86) 94 03/10/20 21:00 Non-Rebreather 15.0 Non-Rebreather 15.0 03/10/20 20:00 97.9 77 20 136/64 (88) 92 03/10/20 20:00 72 03/10/20 16:15 68 03/10/20 16:00 96.8 86 18 132/88 (103) 98 03/10/20 12:00 96.6 71 19 130/56 (80) 96 03/10/20 12:00 72 03/10/20 09:00 Non-Rebreather 15.0 Non-Rebreather 15.0 03/10/20 08:00 98.3 74 20 133/64 (87) 98 03/10/20 07:45 68 Intake and Output 03/11/20 03/12/20 19:00 07:00 Intake Total 324 ml Balance 324 ml Intake Oral 324 ml # Voids 3 1 # Bowel Movements 1 Labs Test 03/09/20 06:49 03/10/20 08:22 White Blood Count 3.9 K/UL (4.8-10.8) Red Blood Count 2.98 M/UL (4.20-5.40) Hemoglobin 9.9 G/DL (12.0-16.0) Hematocrit 30.0 % (37.0-47.0) Mean Corpuscular Volume 101 FL (80-99) Mean Corpuscular Hemoglobin 33.2 PG (27.0-31.0) Mean Corpuscular Hemoglobin Concent 33.0 G/DL (32.0-36.0) Red Cell Distribution Width 17.4 % (11.6-14.8) Platelet Count 163 K/UL (150-450) Mean Platelet Volume 5.6 FL (6.5-10.1) Neutrophils (%) (Auto) 56.0 % (45.0-75.0) Lymphocytes (%) (Auto) 27.6 % (20.0-45.0) Monocytes (%) (Auto) 9.5 % (1.0-10.0) Eosinophils (%) (Auto) 6.3 % (0.0-3.0) Basophils (%) (Auto) 0.6 % (0.0-2.0) Sodium Level 136 MMOL/L (136-145) Potassium Level 3.7 MMOL/L (3.5-5.1) Chloride Level 102 MMOL/L (98-107) Carbon Dioxide Level 28 MMOL/L (21-32) Anion Gap 6 mmol/L (5-15) Blood Urea Nitrogen 5 mg/dL (7-18) Creatinine 0.6 MG/DL (0.55-1.30) Estimat Glomerular Filtration Rate > 60 mL/min (>60) Glucose Level 71 MG/DL (74-106) Calcium Level 8.1 MG/DL (8.5-10.1) Arterial Blood pH 7.403 (7.350-7.450) Arterial Blood Partial Pressure CO2 53.8 mmHg (35.0-45.0) Arterial Blood Partial Pressure O2 56.2 mmHg (75.0-100.0) Arterial Blood HCO3 32.8 mmol/L (22.0-26.0) Arterial Blood Oxygen Saturation 88.5 % (95-100) Arterial Blood Base Excess 6.5 (-2-2) Joaquin Test Positive Height (Feet): 5 Height (Inches): 1.00 Weight (Pounds): 264 Objective Physical Exam: Vitals: reviewed General: NAD HEENT: nc, at Neck: supple Chest: clear breath sounds bilaterally Cardiovascular: RRR, no s3, s4 EXT ++ Significant edema and erythema bilateral lower extremity, patient also has blistering on both feet given the edema, whittish overcrust/crusting++ Neurologic: alert, oriented x3 Skin: other - As above Brett Mcclain MD Mar 12, 2020 06:34
[2020-03-12 07:00] VITALS: BP 123/64
[2020-03-12 08:04] LABS: BASOPHILS % (AUTO) 0.4 % (0.0-2.0); EOSINOPHILS % (AUTO) 4.8 % (0.0-3.0); HEMATOCRIT 32.6 % (37.0-47.0); HEMOGLOBIN 10.6 G/DL (12.0-16.0); LYMPHOCYTES % (AUTO) 15.9 % (20.0-45.0); MEAN CORPUSCULAR VOLUME 101 FL (80-99); MONOCYTES % (AUTO) 6.2 % (1.0-10.0); NEUTROPHILS % (AUTO) 72.7 % (45.0-75.0); PLATELET COUNT 149 K/UL (150-450); RED BLOOD COUNT 3.22 M/UL (4.20-5.40); WHITE BLOOD COUNT 4.4 K/UL (4.8-10.8)
[2020-03-12 08:56] LABS: ANION GAP 3 mmol/L (5-15); BLOOD UREA NITROGEN 6 mg/dL (7-18); CALCIUM 8.2 MG/DL (8.5-10.1); CARBON DIOXIDE 37 MMOL/L (21-32); CHLORIDE 99 MMOL/L (98-107); CREATININE 0.6 MG/DL (0.55-1.30); SODIUM 139 MMOL/L (136-145)
[2020-03-12] MEDS: Lactulose 10gm/15ml UDC ORAL SCH ×3 (09:42→17:24)
[2020-03-12] MEDS: Enoxaparin 40mg Inj SUBQ SCH (09:45)
--- NOTE | 2020-03-12 10:59 | GI Progress Note ---
Assessment/Plan Problems: (1) Macrocytic anemia ICD Codes: D53.9 - Nutritional anemia, unspecified SNOMED: 58036632 (2) Respiratory distress ICD Codes: R06.03 - Acute respiratory distress SNOMED: 176284933 Status: unchanged Status Narrative Discussed with Dr. Spicer. Assessment/Plan macrocytic anemia elevated LFTS cirrhosis cellulitis elevated Ammonia levels abd us>> reviewed fu stool ob>>>neg now COVID 19 positive s/p one unit PRBC in this admission lactulose and Xifaxan GI procedures if needed abx per id hepatitis panel>>>>>positive for hep C>>> needs out patient fu nutrition eval appreciated>>> cardiac diet will fu The patient was seen and examined at bedside and all new and available data was reviewed in the patients chart. I agree with the above findings, impression and plan. (Patient seen earlier today. Signature stamp does not reflect patient encounter time.). - Tam Spicer MD Subjective Gastrointestinal/Abdominal: Reports: no symptoms Objective Last 24 Hour Vital Signs Date Time Temp Pulse Resp B/P (MAP) Pulse Ox O2 Delivery O2 Flow Rate FiO2 03/12/20 09:00 Non-Rebreather 15.0 Non-Rebreather 15.0 03/12/20 08:00 67 03/12/20 07:00 97.5 72 20 123/64 (83) 89 03/12/20 04:00 97.5 72 19 127/70 (89) 92 03/12/20 04:00 76 03/12/20 00:00 67 03/12/20 00:00 98.2 69 19 114/61 (78) 94 03/11/20 21:00 Non-Rebreather 15.0 Non-Rebreather 15.0 03/11/20 20:00 97.5 70 18 109/58 (75) 92 03/11/20 20:00 67 03/11/20 16:00 97.4 71 22 107/64 (78) 95 03/11/20 16:00 71 03/11/20 12:00 98.1 71 22 106/65 (79) 95 03/11/20 12:00 68 Intake and Output 03/11/20 03/12/20 19:00 07:00 Intake Total 324 ml Balance 324 ml Intake Oral 324 ml # Voids 3 1 # Bowel Movements 1 Laboratory Tests Test 03/12/20 06:28 White Blood Count 4.4 K/UL (4.8-10.8) L Red Blood Count 3.22 M/UL (4.20-5.40) L Hemoglobin 10.6 G/DL (12.0-16.0) L Hematocrit 32.6 % (37.0-47.0) L Mean Corpuscular Volume 101 FL (80-99) H Mean Corpuscular Hemoglobin 33.0 PG (27.0-31.0) H Mean Corpuscular Hemoglobin Concent 32.7 G/DL (32.0-36.0) Red Cell Distribution Width 17.0 % (11.6-14.8) H Platelet Count 149 K/UL (150-450) L Mean Platelet Volume 5.2 FL (6.5-10.1) L Neutrophils (%) (Auto) 72.7 % (45.0-75.0) Lymphocytes (%) (Auto) 15.9 % (20.0-45.0) L Monocytes (%) (Auto) 6.2 % (1.0-10.0) Eosinophils (%) (Auto) 4.8 % (0.0-3.0) H Basophils (%) (Auto) 0.4 % (0.0-2.0) Sodium Level 139 MMOL/L (136-145) Potassium Level 3.0 MMOL/L (3.5-5.1) L Chloride Level 99 MMOL/L (98-107) Carbon Dioxide Level 37 MMOL/L (21-32) H Anion Gap 3 mmol/L (5-15) L Blood Urea Nitrogen 6 mg/dL (7-18) L Creatinine 0.6 MG/DL (0.55-1.30) Estimat Glomerular Filtration Rate > 60 mL/min (>60) Glucose Level 66 MG/DL (74-106) L Calcium Level 8.2 MG/DL (8.5-10.1) L Height (Feet): 5 Height (Inches): 1.00 Weight (Pounds): 264 General Appearance: WD/WN, no apparent distress, alert Cardiovascular: normal rate Respiratory/Chest: normal breath sounds, no respiratory distress Abdominal Exam: normal bowel sounds, non tender, soft Extremities: normal range of motion, non-tender 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
[2020-03-12] MEDS ORDERED: Sodium Chloride for KCL Premix x 2hrs IV SCH (11:00)
[2020-03-12 12:00] VITALS: BP 116/62
--- NOTE | 2020-03-12 12:29 | Infectious Diseases Prog Note ---
Assessment/Plan Assessment/Plan IMPRESSION: 1. Bilateral leg cellulitis,Pseudomonas in culture 2. Anemia. 3. Hypoxemia 4. Thrombocytopenia. 5. Homeless 6. Morbid obesity. 7. Cirrhosis 8. COVID19 pneumonia RECOMMENDATION: Repeat CXR & COVID19 test Continue Plaquenil X 1 day Negative VQ scan Subjective ROS Limited/Unobtainable: No Constitutional: Reports: no symptoms Respiratory: Reports: dry cough, other - occasional Gastrointestinal/Abdominal: Reports: no symptoms Genitourinary: Reports: no symptoms Allergies: Coded Allergies: No Known Allergies (Unverified , 02/29/20) Objective Vital Signs Last 24 Hour Vital Signs Date Time Temp Pulse Resp B/P (MAP) Pulse Ox O2 Delivery O2 Flow Rate FiO2 03/12/20 09:00 Non-Rebreather 15.0 Non-Rebreather 15.0 03/12/20 08:00 67 03/12/20 07:00 97.5 72 20 123/64 (83) 89 03/12/20 04:00 97.5 72 19 127/70 (89) 92 03/12/20 04:00 76 03/12/20 00:00 67 03/12/20 00:00 98.2 69 19 114/61 (78) 94 03/11/20 21:00 Non-Rebreather 15.0 Non-Rebreather 15.0 03/11/20 20:00 97.5 70 18 109/58 (75) 92 03/11/20 20:00 67 03/11/20 16:00 97.4 71 22 107/64 (78) 95 03/11/20 16:00 71 Height (Feet): 5 Height (Inches): 1.00 Weight (Pounds): 264 General Appearance: no acute distress HEENT: mucous membranes moist Respiratory/Chest: lungs clear, other - oxygen by rebreathing mask Cardiovascular: normal rate Abdomen: soft, non tender Extremities: other - legs edema Skin: other - stasis dermatitis of legs Neurologic/Psychiatric: alert, oriented x 3, responsive Laboratory Tests Test 03/12/20 06:28 White Blood Count 4.4 K/UL (4.8-10.8) L Red Blood Count 3.22 M/UL (4.20-5.40) L Hemoglobin 10.6 G/DL (12.0-16.0) L Hematocrit 32.6 % (37.0-47.0) L Mean Corpuscular Volume 101 FL (80-99) H Mean Corpuscular Hemoglobin 33.0 PG (27.0-31.0) H Mean Corpuscular Hemoglobin Concent 32.7 G/DL (32.0-36.0) Red Cell Distribution Width 17.0 % (11.6-14.8) H Platelet Count 149 K/UL (150-450) L Mean Platelet Volume 5.2 FL (6.5-10.1) L Neutrophils (%) (Auto) 72.7 % (45.0-75.0) Lymphocytes (%) (Auto) 15.9 % (20.0-45.0) L Monocytes (%) (Auto) 6.2 % (1.0-10.0) Eosinophils (%) (Auto) 4.8 % (0.0-3.0) H Basophils (%) (Auto) 0.4 % (0.0-2.0) Sodium Level 139 MMOL/L (136-145) Potassium Level 3.0 MMOL/L (3.5-5.1) L Chloride Level 99 MMOL/L (98-107) Carbon Dioxide Level 37 MMOL/L (21-32) H Anion Gap 3 mmol/L (5-15) L Blood Urea Nitrogen 6 mg/dL (7-18) L Creatinine 0.6 MG/DL (0.55-1.30) Estimat Glomerular Filtration Rate > 60 mL/min (>60) Glucose Level 66 MG/DL (74-106) L Calcium Level 8.2 MG/DL (8.5-10.1) L Current Medications Medications (Trade) Dose Ordered Sig/Dolores Route PRN Reason Start Time Stop Time Status Last Admin Dose Admin Acetaminophen (Tylenol) 650 mg Q4H PRN ORAL Mild Pain (Pain Scale 1-3) 03/07/20 18:00 03/30/20 17:59 Acetaminophen (Tylenol) 650 mg Q4H PRN ORAL Temp >100 03/07/20 18:00 04/01/20 17:59 Albuterol Sulfate (Proventil MDI) 2 puff Q6HRT INH 03/07/20 19:00 06/05/20 12:59 03/12/20 01:21 Diphenhydramine HCl (Benadryl) 25 mg Q4H PRN ORAL moderate itching 03/07/20 18:00 03/30/20 17:59 03/11/20 21:46 Diphenhydramine HCl (Benadryl) 50 mg Q4H PRN ORAL SEVERE ITCHING 03/07/20 18:00 03/30/20 17:59 Enoxaparin Sodium (Lovenox) 40 mg DAILY SUBQ 03/12/20 09:00 06/10/20 08:59 03/12/20 09:45 Furosemide (Lasix) 40 mg BID IV 03/10/20 09:00 04/06/20 10:29 03/12/20 09:43 Hydroxychloroquine Sulfate (Plaquenil) 200 mg Q12HR ORAL 03/10/20 09:00 03/13/20 21:01 03/12/20 09:43 Lactulose (Cephulac) 10 gm THREE TIMES A DAY ORAL 03/07/20 18:00 04/01/20 12:59 03/12/20 12:10 Mirtazapine (Remeron) 7.5 mg BEDTIME PRN ORAL SLEEP 03/07/20 18:00 05/31/20 17:59 Morphine Sulfate (Morphine Sulfate) 2 mg Q4H PRN IVP FOR PAIN LEVEL OF 4-10 03/08/20 21:15 03/15/20 21:14 03/12/20 06:32 Potassium Chloride (K-Dur) 20 meq DAILY ORAL 03/13/20 09:00 06/11/20 08:59 Potassium Chloride (K-Dur) 40 meq ONCE ORAL 03/12/20 12:15 03/12/20 13:30 03/12/20 12:10 Jonathon Shah MD Mar 12, 2020 12:29
[2020-03-12] MEDS ORDERED: Potassium Chloride 20 MEQ in D5W 275 ML IVPB SCH (13:00)
[2020-03-12] MEDS: DiphenhydrAMINE 25mg Tab ORAL PRN (13:37)
[2020-03-12 16:00] VITALS: BP 116/69
--- NOTE | 2020-03-12 19:54 | Surgery Progress Note ---
Surgery Progress Note Subjective Symptoms: improved, tolerating diet, voiding well, passing flatus, BM, pain decreased Objective Last 24 Hour Vital Signs Date Time Temp Pulse Resp B/P (MAP) Pulse Ox O2 Delivery O2 Flow Rate FiO2 03/12/20 16:00 71 03/12/20 16:00 97.5 74 20 116/69 (85) 90 03/12/20 12:00 97.1 72 20 116/62 (80) 90 03/12/20 12:00 70 03/12/20 09:00 Non-Rebreather 15.0 Non-Rebreather 15.0 03/12/20 08:00 67 03/12/20 07:00 97.5 72 20 123/64 (83) 89 03/12/20 04:00 97.5 72 19 127/70 (89) 92 03/12/20 04:00 76 03/12/20 00:00 67 03/12/20 00:00 98.2 69 19 114/61 (78) 94 03/11/20 21:00 Non-Rebreather 15.0 Non-Rebreather 15.0 03/11/20 20:00 97.5 70 18 109/58 (75) 92 03/11/20 20:00 67 I&O Intake and Output 03/11/20 03/12/20 19:00 07:00 Intake Total 324 ml Balance 324 ml Intake Oral 324 ml # Voids 3 1 # Bowel Movements 1 Dressing: dry Wound: clean Cardiovascular: RSR Respiratory: clear Abdomen: soft, non-tender, present bowel sounds, non-distended Extremities: no cyanosis Laboratory Tests Test 03/12/20 06:28 White Blood Count 4.4 K/UL (4.8-10.8) L Red Blood Count 3.22 M/UL (4.20-5.40) L Hemoglobin 10.6 G/DL (12.0-16.0) L Hematocrit 32.6 % (37.0-47.0) L Mean Corpuscular Volume 101 FL (80-99) H Mean Corpuscular Hemoglobin 33.0 PG (27.0-31.0) H Mean Corpuscular Hemoglobin Concent 32.7 G/DL (32.0-36.0) Red Cell Distribution Width 17.0 % (11.6-14.8) H Platelet Count 149 K/UL (150-450) L Mean Platelet Volume 5.2 FL (6.5-10.1) L Neutrophils (%) (Auto) 72.7 % (45.0-75.0) Lymphocytes (%) (Auto) 15.9 % (20.0-45.0) L Monocytes (%) (Auto) 6.2 % (1.0-10.0) Eosinophils (%) (Auto) 4.8 % (0.0-3.0) H Basophils (%) (Auto) 0.4 % (0.0-2.0) Sodium Level 139 MMOL/L (136-145) Potassium Level 3.0 MMOL/L (3.5-5.1) L Chloride Level 99 MMOL/L (98-107) Carbon Dioxide Level 37 MMOL/L (21-32) H Anion Gap 3 mmol/L (5-15) L Blood Urea Nitrogen 6 mg/dL (7-18) L Creatinine 0.6 MG/DL (0.55-1.30) Estimat Glomerular Filtration Rate > 60 mL/min (>60) Glucose Level 66 MG/DL (74-106) L Calcium Level 8.2 MG/DL (8.5-10.1) L Plan Problems: (1) Cellulitis Assessment & Plan: bilateral lower extremity cellulitis / edema chronic venous status changes dermatitis no abscess no purulent drainage ulcerations forming. keep lower extremity elevated while in bed apply skin protectant / moisturizing cream daily okay to shower okay to wrap soft after cream abx as per ID for cellulitis okay for diet duplex ordered trend labs will follow with recs thank you No evidence of deep venous thrombosis involving the visualized veins of the RIGHT lower extremity. refused eval of left COVID ++ cxr noted cont current supportive care improving labs stable NobleTheron rodriguez Mar 12, 2020 19:54
[2020-03-12 20:00] VITALS: BP 115/60
--- NOTE | 2020-03-12 22:15 | General Progress Note ---
Assessment/Plan Problem List: (1) Cellulitis ICD Codes: L03.90 - Cellulitis, unspecified SNOMED: 747021151 Qualifiers: Qualified Codes: L03.119 - Cellulitis of unspecified part of limb Status: progressing, unchanged Assessment/Plan: cellulitis of legs low k abx per id no fever no change s/p hypoxic sepsis Subjective ROS Limited/Unobtainable: Yes Allergies: Coded Allergies: No Known Allergies (Unverified , 02/29/20) Objective Last 24 Hour Vital Signs Date Time Temp Pulse Resp B/P (MAP) Pulse Ox O2 Delivery O2 Flow Rate FiO2 03/12/20 21:00 Non-Rebreather 15.0 Non-Rebreather 15.0 03/12/20 20:00 97.7 19 115/60 (78) 94 03/12/20 16:00 71 03/12/20 16:00 97.5 74 20 116/69 (85) 90 03/12/20 12:00 97.1 72 20 116/62 (80) 90 03/12/20 12:00 70 03/12/20 09:00 Non-Rebreather 15.0 Non-Rebreather 15.0 03/12/20 08:00 67 03/12/20 07:00 97.5 72 20 123/64 (83) 89 03/12/20 04:00 97.5 72 19 127/70 (89) 92 03/12/20 04:00 76 03/12/20 00:00 67 03/12/20 00:00 98.2 69 19 114/61 (78) 94 Intake and Output 03/11/20 03/12/20 19:00 07:00 Intake Total 324 ml Balance 324 ml Intake Oral 324 ml # Voids 3 1 # Bowel Movements 1 Laboratory Tests 03/12/20 06:28: White Blood Count 4.4L, Red Blood Count 3.22L, Hemoglobin 10.6L, Hematocrit 32.6L, Mean Corpuscular Volume 101H, Mean Corpuscular Hemoglobin 33.0H, Mean Corpuscular Hemoglobin Concent 32.7, Red Cell Distribution Width 17.0H, Platelet Count 149L, Mean Platelet Volume 5.2L, Neutrophils (%) (Auto) 72.7, Lymphocytes (%) (Auto) 15.9L, Monocytes (%) (Auto) 6.2, Eosinophils (%) (Auto) 4.8H, Basophils (%) (Auto) 0.4, Sodium Level 139, Potassium Level 3.0L, Chloride Level 99, Carbon Dioxide Level 37H, Anion Gap 3L, Blood Urea Nitrogen 6L, Creatinine 0.6, Estimat Glomerular Filtration Rate > 60, Glucose Level 66L, Calcium Level 8.2L Height (Feet): 5 Height (Inches): 1.00 Weight (Pounds): 264 Celso Moreno MD Mar 12, 2020 22:15
--- NOTE | 2020-03-12 22:17 | General Progress Note ---
Assessment/Plan Problem List: (1) Cellulitis ICD Codes: L03.90 - Cellulitis, unspecified SNOMED: [id number] Qualifiers: Qualified Codes: L03.119 - Cellulitis of unspecified part of limb Status: progressing, unchanged Assessment/Plan: cellulitis of legs low k abx per id no fever s/p hypoxic sepsis weak no cp Subjective Allergies: Coded Allergies: No Known Allergies (Unverified , 02/29/20) Objective Last 24 Hour Vital Signs Date Time Temp Pulse Resp B/P (MAP) Pulse Ox O2 Delivery O2 Flow Rate FiO2 03/12/20 21:00 Non-Rebreather 15.0 Non-Rebreather 15.0 03/12/20 20:00 97.7 19 115/60 (78) 94 03/12/20 16:00 71 03/12/20 16:00 97.5 74 20 116/69 (85) 90 03/12/20 12:00 97.1 72 20 116/62 (80) 90 03/12/20 12:00 70 03/12/20 09:00 Non-Rebreather 15.0 Non-Rebreather 15.0 03/12/20 08:00 67 03/12/20 07:00 97.5 72 20 123/64 (83) 89 03/12/20 04:00 97.5 72 19 127/70 (89) 92 03/12/20 04:00 76 03/12/20 00:00 67 03/12/20 00:00 98.2 69 19 114/61 (78) 94 Intake and Output 03/11/20 03/12/20 19:00 07:00 Intake Total 324 ml Balance 324 ml Intake Oral 324 ml # Voids 3 1 # Bowel Movements 1 Laboratory Tests 03/12/20 06:28: White Blood Count 4.4L, Red Blood Count 3.22L, Hemoglobin 10.6L, Hematocrit 32.6L, Mean Corpuscular Volume 101H, Mean Corpuscular Hemoglobin 33.0H, Mean Corpuscular Hemoglobin Concent 32.7, Red Cell Distribution Width 17.0H, Platelet Count 149L, Mean Platelet Volume 5.2L, Neutrophils (%) (Auto) 72.7, Lymphocytes (%) (Auto) 15.9L, Monocytes (%) (Auto) 6.2, Eosinophils (%) (Auto) 4.8H, Basophils (%) (Auto) 0.4, Sodium Level 139, Potassium Level 3.0L, Chloride Level 99, Carbon Dioxide Level 37H, Anion Gap 3L, Blood Urea Nitrogen 6L, Creatinine 0.6, Estimat Glomerular Filtration Rate > 60, Glucose Level 66L, Calcium Level 8.2L Height (Feet): 5 Height (Inches): 1.00 Weight (Pounds): 264 Celso Moreno MD Mar 12, 2020 22:17
--- NOTE | 2020-03-12 23:50 | Cardiology Progress Note ---
Assessment/Plan Assessment/Plan 1. Noncardiac chest pain, acute myocardial function is ruled out by two negative troponin I levels, 12-lead electrocardiogram does not show any acute ischemic changes. Continue furosemide, 2D echo was rejected by the cardiology department due to positive COVID-19 status. 2. Bilateral lower extremity cellulitis with Pseudomonas aeruginosa in culture. 3. Pancytopenia, most likely due to hepatitis C virus infection/liver cirrhosis. 4. Homeless. Subjective Subjective Sinus rhythm at rate of 74. Objective Last 24 Hour Vital Signs Date Time Temp Pulse Resp B/P (MAP) Pulse Ox O2 Delivery O2 Flow Rate FiO2 03/12/20 21:00 Non-Rebreather 15.0 Non-Rebreather 15.0 03/12/20 20:00 97.7 19 115/60 (78) 94 03/12/20 16:00 71 03/12/20 16:00 97.5 74 20 116/69 (85) 90 03/12/20 12:00 97.1 72 20 116/62 (80) 90 03/12/20 12:00 70 03/12/20 09:00 Non-Rebreather 15.0 Non-Rebreather 15.0 03/12/20 08:00 67 03/12/20 07:00 97.5 72 20 123/64 (83) 89 03/12/20 04:00 97.5 72 19 127/70 (89) 92 03/12/20 04:00 76 03/12/20 00:00 67 03/12/20 00:00 98.2 69 19 114/61 (78) 94 Intake and Output 03/11/20 03/12/20 19:00 07:00 Intake Total 324 ml Balance 324 ml Intake Oral 324 ml # Voids 3 1 # Bowel Movements 1 Laboratory Tests Test 03/12/20 06:28 White Blood Count 4.4 K/UL (4.8-10.8) L Red Blood Count 3.22 M/UL (4.20-5.40) L Hemoglobin 10.6 G/DL (12.0-16.0) L Hematocrit 32.6 % (37.0-47.0) L Mean Corpuscular Volume 101 FL (80-99) H Mean Corpuscular Hemoglobin 33.0 PG (27.0-31.0) H Mean Corpuscular Hemoglobin Concent 32.7 G/DL (32.0-36.0) Red Cell Distribution Width 17.0 % (11.6-14.8) H Platelet Count 149 K/UL (150-450) L Mean Platelet Volume 5.2 FL (6.5-10.1) L Neutrophils (%) (Auto) 72.7 % (45.0-75.0) Lymphocytes (%) (Auto) 15.9 % (20.0-45.0) L Monocytes (%) (Auto) 6.2 % (1.0-10.0) Eosinophils (%) (Auto) 4.8 % (0.0-3.0) H Basophils (%) (Auto) 0.4 % (0.0-2.0) Sodium Level 139 MMOL/L (136-145) Potassium Level 3.0 MMOL/L (3.5-5.1) L Chloride Level 99 MMOL/L (98-107) Carbon Dioxide Level 37 MMOL/L (21-32) H Anion Gap 3 mmol/L (5-15) L Blood Urea Nitrogen 6 mg/dL (7-18) L Creatinine 0.6 MG/DL (0.55-1.30) Estimat Glomerular Filtration Rate > 60 mL/min (>60) Glucose Level 66 MG/DL (74-106) L Calcium Level 8.2 MG/DL (8.5-10.1) L Objective HEENT: Atraumatic and normocephalic. Anicteric. Pupils are equal, round, and reactive to light and accommodation. Extraocular muscles intact. NECK: JVP cannot be assessed. No carotid bruit. Carotid upstroke is 2+ bilaterally. CARDIOVASCULAR: Normal S1, S2. Regular rate and rhythm. No murmurs, gallops, or rubs. PMI is at fourth intercostal space at left midclavicular line. LUNGS: Clear to auscultation bilaterally. ABDOMEN: Soft, nontender, and nondistended. No hepatosplenomegaly. Positive bowel sounds. EXTREMITIES: A 2+ edema bilaterally associated with erythema with blistering and crossing of both feet. Berto Gonzalez MD Mar 12, 2020 23:50
--- NOTE | 2020-03-12 23:57 | Pulmonology Progress Note ---
Assessment/Plan Assessment/Plan Pulmonary Progress Note HPI Patient is a 59 year old woman with significant obesity, admitted with bilateral lower extremity cellulitis, had complained of increased swelling and redness to both of her feet and legs Had elevated BNP on admission, persistent edema since admission, worsening hypoxia, LE DVT (right) negative for DVT. Patient is a poor historian reports that she has been having increased weakness over the past several days [employer], enied any fevers, vomiting or diarrhea, has had previous hospitalizations for cellulitis. COVID 19 positive, Pneumonia VQ no significant perfusion abnormality Being diuresed, worsening infiltrates on CXR High oxygen requirements - on NRB Allergies: No Known Allergies Past Medical History: Obesity, Cirrhosis, Anemia, Anxiety, Cellulitis All Other Systems: negative except mentioned in HPI Physical Exam Vital Signs Noted General Appearance: Obese, no apparent distress Head: normocephalic, atraumatic Eyes: bilateral eye PERRL, bilateral eye EOMI ENT: EOM grossly intact, moist MM, no LN Respiratory: lungs clear, no respiratory distress, no retraction Cardiovascular: regular rate, rhythm, HS1, HS2 RRR Gastrointestinal: Obese, soft non tender, ND Musculoskeletal: Significant edema and erythema bilateral lower extremity, patient also has blistering/crusting on both feet, Neurologic: alert, oriented x3 Impression: Bilateral Lower Extremity Cellulitis Elevated NPA, severe bilateral edema Covid Pneumonia Worsening hypoxia, elevated PCO2 of 48 Cirrhosis Splenomegaly Anemia Anxiety Plan IV Antibiotics per ID Surgery following for wounds Hematology following for anemia, observing for Neutropenia Diurese PRN Monitor labs Bronchodilators PPX - SCD Echocardiogram O2 PRN (cannot use BiPAP as COVID PNA) Albuterol PRN Labs Noted Chest X-Ray: Cardiomegaly, left lower lobe atelectasis versus effusion, worsening infiltrates/congestion Subjective ROS Limited/Unobtainable: No Constitutional: Reports: no symptoms Gastrointestinal/Abdominal: Reports: no symptoms Musculoskeletal: Reports: other - decreased pain in legs Allergies: Coded Allergies: No Known Allergies (Unverified , 02/29/20) Objective Last 24 Hour Vital Signs Date Time Temp Pulse Resp B/P (MAP) Pulse Ox O2 Delivery O2 Flow Rate FiO2 03/12/20 21:00 Non-Rebreather 15.0 Non-Rebreather 15.0 03/12/20 20:00 97.7 19 115/60 (78) 94 03/12/20 16:00 71 03/12/20 16:00 97.5 74 20 116/69 (85) 90 03/12/20 12:00 97.1 72 20 116/62 (80) 90 03/12/20 12:00 70 03/12/20 09:00 Non-Rebreather 15.0 Non-Rebreather 15.0 03/12/20 08:00 67 03/12/20 07:00 97.5 72 20 123/64 (83) 89 03/12/20 04:00 97.5 72 19 127/70 (89) 92 03/12/20 04:00 76 03/12/20 00:00 67 03/12/20 00:00 98.2 69 19 114/61 (78) 94 Intake and Output 03/11/20 03/12/20 19:00 07:00 Intake Total 324 ml Balance 324 ml Intake Oral 324 ml # Voids 3 1 # Bowel Movements 1 General Appearance: no acute distress HEENT: mucous membranes moist Abdomen: soft, non tender Extremities: other - legs edema Skin: other - stasis dermatitis of legs Neurologic/Psychiatric: alert, oriented x 3, responsive Laboratory Tests 03/12/20 06:28: White Blood Count 4.4L, Red Blood Count 3.22L, Hemoglobin 10.6L, Hematocrit 32.6L, Mean Corpuscular Volume 101H, Mean Corpuscular Hemoglobin 33.0H, Mean Corpuscular Hemoglobin Concent 32.7, Red Cell Distribution Width 17.0H, Platelet Count 149L, Mean Platelet Volume 5.2L, Neutrophils (%) (Auto) 72.7, Lymphocytes (%) (Auto) 15.9L, Monocytes (%) (Auto) 6.2, Eosinophils (%) (Auto) 4.8H, Basophils (%) (Auto) 0.4, Sodium Level 139, Potassium Level 3.0L, Chloride Level 99, Carbon Dioxide Level 37H, Anion Gap 3L, Blood Urea Nitrogen 6L, Creatinine 0.6, Estimat Glomerular Filtration Rate > 60, Glucose Level 66L, Calcium Level 8.2L Current Medications Medications (Trade) Dose Ordered Sig/Dolores Route PRN Reason Start Time Stop Time Status Last Admin Dose Admin Acetaminophen (Tylenol) 650 mg Q4H PRN ORAL Mild Pain (Pain Scale 1-3) 03/07/20 18:00 03/30/20 17:59 Acetaminophen (Tylenol) 650 mg Q4H PRN ORAL Temp >100 03/07/20 18:00 04/01/20 17:59 Albuterol Sulfate (Proventil MDI) 2 puff Q6HRT INH 03/07/20 19:00 06/05/20 12:59 03/12/20 19:01 Diphenhydramine HCl (Benadryl) 25 mg Q4H PRN ORAL moderate itching 03/07/20 18:00 03/30/20 17:59 03/12/20 13:37 Diphenhydramine HCl (Benadryl) 50 mg Q4H PRN ORAL SEVERE ITCHING 03/07/20 18:00 03/30/20 17:59 Enoxaparin Sodium (Lovenox) 40 mg DAILY SUBQ 03/12/20 09:00 06/10/20 08:59 03/12/20 09:45 Furosemide (Lasix) 40 mg BID IV 03/10/20 09:00 04/06/20 10:29 03/12/20 17:24 Hydroxychloroquine Sulfate (Plaquenil) 200 mg Q12HR ORAL 03/10/20 09:00 03/13/20 21:01 03/12/20 20:47 Lactulose (Cephulac) 10 gm THREE TIMES A DAY ORAL 03/07/20 18:00 04/01/20 12:59 03/12/20 17:24 Mirtazapine (Remeron) 7.5 mg BEDTIME PRN ORAL SLEEP 03/07/20 18:00 05/31/20 17:59 Morphine Sulfate (Morphine Sulfate) 2 mg Q4H PRN IVP FOR PAIN LEVEL OF 4-10 03/08/20 21:15 03/15/20 21:14 03/12/20 21:06 Potassium Chloride (K-Dur) 20 meq DAILY ORAL 03/13/20 09:00 06/11/20 08:59 Doron Carrillo MD Mar 12, 2020 23:57
[2020-03-13] VITALS (17 sets, daily range): BP systolic 89–137; BP diastolic 34–76
[2020-03-13] MEDS: Albuterol 90mcg Inhaler 8gm INH SCH ×3 (01:00→19:42)
--- NOTE | 2020-03-13 06:28 | Hematology/Onc Progress Note ---
Assessment/Plan Assessment/Plan Assessment and Recs # Pancytopenia -- multiple etiologies could be related to underlying liver disease, medication-induced, infection versus viral syndrome versus underlying bone marrow cause, in this case, has severe liver disease and cirrhosis, HEP C++ , also cellulitis --> peripheral smear has been ordered and does not show significant abnormalities and none noted --> Medications have been reviewed --> Continue to monitor for improvement, trend cbc --> Hep panel and HIV are both negative --> US abd ordered to r/o cirrhosis and hepatosplenomegaly ->CIRRHOSIS IS NOTED , LARGE SPLEEN --> reverse isolation if ANC is <2000 --> Give neupogen if ANC <1000 --> Transfuse if hgb <7, with 1 unit prbc --> anemia panel ordered as well-->CW acd --> hgb trend 7-->7.1-->8.4-->8.2 -->8.7-->9.9 --> plt 145k-->152-->162k-->149k --> wbc 3.4-->3.5->3.9->4.4 --> abx: sameer/rifaximin # Cellulitis of the lower extremities --> continue abx as needed as per id --> Started on IV antibiotics --> as per surg recs, wound care # Ftt --> remains on mirtazapine # Elevated LFTS --> as per gi --> due to cirrhosis # Dvt ppx lovenox sq The timing of this note does not necessarily reflect the time of the patient was seen. Greatly appreciate consultation. Subjective Constitutional: Denies: no symptoms, chills, fever, malaise, weakness, other HEENT: Denies: no symptoms, eye pain, blurred vision, tearing, double vision, ear pain, ear discharge, nose pain, nose congestion, throat pain, throat swelling, mouth pain, mouth swelling, other Cardiovascular: Denies: no symptoms, chest pain, edema, irregular heart rate, lightheadedness, palpitations, syncope, other Respiratory: Denies: no symptoms, cough, shortness of breath, SOB with excertion, SOB at rest, sputum, wheezing, other Gastrointestinal/Abdominal: Denies: no symptoms, abdomen distended, abdominal pain, black stools, tarry stools, blood in stool, constipated, diarrhea, difficulty swallowing, nausea, poor appetite, poor fluid intake, rectal bleeding , vomiting, other Genitourinary: Denies: no symptoms, burning, discharge, frequency, flank pain, hematuria, incontinence, pain, urgency, other Endocrine: Denies: no symptoms, excessive sweating, flushing, intolerance to cold, intolerance to heat, increased hunger, increased thirst, increased urine, unexplained weight gain, unexplained weight loss, other Allergies: Coded Allergies: No Known Allergies (Unverified , 02/29/20) Subjective 03/02 no events, no bleeding, hgb 7.1, no hemolysis 03/03 s/p blood, hgb improved to 8.4, stool ob negtive, on abx 03/05 asleep, no acute distress, hgb 8.2 03/06 remains comfortable, on abx, plt remains low 03/07 is on nonrebreather, no night sweats, labs are noted 03/08 labs reviewed, being diuresed, seen by cards, psych, labs noted 03/09 lasix adjusted, wbc remains low at 3.9, reviewed meds, smear 03/10 no night sweats, no bleeding, labs noted, smear noted 03/12 labs noted, none completed, have reordered, cellulitis better 03/13 is continuing with chest pain, cards aware, no further studies until covid neg Objective Objective Current Medications Medications (Trade) Dose Ordered Sig/Dolores Route PRN Reason Start Time Stop Time Status Last Admin Dose Admin Acetaminophen (Tylenol) 650 mg Q4H PRN ORAL Mild Pain (Pain Scale 1-3) 03/07/20 18:00 03/30/20 17:59 Acetaminophen (Tylenol) 650 mg Q4H PRN ORAL Temp >100 03/07/20 18:00 04/01/20 17:59 Albuterol Sulfate (Proventil MDI) 2 puff Q6HRT INH 03/07/20 19:00 06/05/20 12:59 03/13/20 01:00 Diphenhydramine HCl (Benadryl) 25 mg Q4H PRN ORAL moderate itching 03/07/20 18:00 03/30/20 17:59 03/12/20 13:37 Diphenhydramine HCl (Benadryl) 50 mg Q4H PRN ORAL SEVERE ITCHING 03/07/20 18:00 03/30/20 17:59 03/13/20 00:49 Enoxaparin Sodium (Lovenox) 40 mg DAILY SUBQ 03/12/20 09:00 06/10/20 08:59 03/12/20 09:45 Furosemide (Lasix) 40 mg BID IV 03/10/20 09:00 04/06/20 10:29 03/12/20 17:24 Hydroxychloroquine Sulfate (Plaquenil) 200 mg Q12HR ORAL 03/10/20 09:00 03/13/20 21:01 03/12/20 20:47 Lactulose (Cephulac) 10 gm THREE TIMES A DAY ORAL 03/07/20 18:00 04/01/20 12:59 03/12/20 17:24 Mirtazapine (Remeron) 7.5 mg BEDTIME PRN ORAL SLEEP 03/07/20 18:00 05/31/20 17:59 Morphine Sulfate (Morphine Sulfate) 2 mg Q4H PRN IVP FOR PAIN LEVEL OF 4-10 03/08/20 21:15 03/15/20 21:14 03/12/20 21:06 Potassium Chloride (K-Dur) 20 meq DAILY ORAL 03/13/20 09:00 06/11/20 08:59 Last 24 Hour Vital Signs Date Time Temp Pulse Resp B/P (MAP) Pulse Ox O2 Delivery O2 Flow Rate FiO2 03/13/20 04:00 70 03/13/20 00:00 71 03/13/20 00:00 97.5 20 137/76 (96) 92 03/12/20 21:00 Non-Rebreather 15.0 Non-Rebreather 15.0 03/12/20 20:00 69 03/12/20 20:00 97.7 19 115/60 (78) 94 03/12/20 16:00 71 03/12/20 16:00 97.5 74 20 116/69 (85) 90 03/12/20 12:00 97.1 72 20 116/62 (80) 90 03/12/20 12:00 70 03/12/20 09:00 Non-Rebreather 15.0 Non-Rebreather 15.0 03/12/20 08:00 67 03/12/20 07:00 97.5 72 20 123/64 (83) 89 03/12/20 04:00 97.5 72 19 127/70 (89) 92 03/12/20 04:00 76 03/12/20 00:00 67 03/12/20 00:00 98.2 69 19 114/61 (78) 94 03/11/20 21:00 Non-Rebreather 15.0 Non-Rebreather 15.0 03/11/20 20:00 97.5 70 18 109/58 (75) 92 03/11/20 20:00 67 03/11/20 16:00 97.4 71 22 107/64 (78) 95 03/11/20 16:00 71 03/11/20 12:00 98.1 71 22 106/65 (79) 95 03/11/20 12:00 68 03/11/20 09:00 Non-Rebreather 15.0 Non-Rebreather 15.0 03/11/20 08:00 71 03/11/20 08:00 98.2 72 22 117/66 (83) 95 Intake and Output 03/12/20 03/13/20 19:00 07:00 Intake Total 500 ml Output Total 1400 ml Balance -900 ml Intake Oral 500 ml Output Urine Total 1400 ml # Voids 4 # Bowel Movements 1 1 Labs Test 03/10/20 08:22 03/12/20 06:28 Arterial Blood pH 7.403 (7.350-7.450) Arterial Blood Partial Pressure CO2 53.8 mmHg (35.0-45.0) Arterial Blood Partial Pressure O2 56.2 mmHg (75.0-100.0) Arterial Blood HCO3 32.8 mmol/L (22.0-26.0) Arterial Blood Oxygen Saturation 88.5 % (95-100) Arterial Blood Base Excess 6.5 (-2-2) Joaquin Test Positive White Blood Count 4.4 K/UL (4.8-10.8) Red Blood Count 3.22 M/UL (4.20-5.40) Hemoglobin 10.6 G/DL (12.0-16.0) Hematocrit 32.6 % (37.0-47.0) Mean Corpuscular Volume 101 FL (80-99) Mean Corpuscular Hemoglobin 33.0 PG (27.0-31.0) Mean Corpuscular Hemoglobin Concent 32.7 G/DL (32.0-36.0) Red Cell Distribution Width 17.0 % (11.6-14.8) Platelet Count 149 K/UL (150-450) Mean Platelet Volume 5.2 FL (6.5-10.1) Neutrophils (%) (Auto) 72.7 % (45.0-75.0) Lymphocytes (%) (Auto) 15.9 % (20.0-45.0) Monocytes (%) (Auto) 6.2 % (1.0-10.0) Eosinophils (%) (Auto) 4.8 % (0.0-3.0) Basophils (%) (Auto) 0.4 % (0.0-2.0) Sodium Level 139 MMOL/L (136-145) Potassium Level 3.0 MMOL/L (3.5-5.1) Chloride Level 99 MMOL/L (98-107) Carbon Dioxide Level 37 MMOL/L (21-32) Anion Gap 3 mmol/L (5-15) Blood Urea Nitrogen 6 mg/dL (7-18) Creatinine 0.6 MG/DL (0.55-1.30) Estimat Glomerular Filtration Rate > 60 mL/min (>60) Glucose Level 66 MG/DL (74-106) Calcium Level 8.2 MG/DL (8.5-10.1) Height (Feet): 5 Height (Inches): 1.00 Weight (Pounds): 264 Objective Physical Exam: Vitals: reviewed General: NAD HEENT: nc, at Neck: supple Chest: clear breath sounds bilaterally Cardiovascular: RRR, no s3, s4 EXT ++ Significant edema and erythema bilateral lower extremity, patient also has blistering on both feet given the edema, whittish overcrust/crusting++ Neurologic: alert, oriented x3 Skin: other - As above Brett Mcclain MD Mar 13, 2020 06:28
[2020-03-13 07:04] LABS: BASOPHILS % (AUTO) 0.2 % (0.0-2.0); EOSINOPHILS % (AUTO) 2.3 % (0.0-3.0); HEMATOCRIT 32.3 % (37.0-47.0); HEMOGLOBIN 10.6 G/DL (12.0-16.0); MEAN CORPUSCULAR VOLUME 100 FL (80-99); NEUTROPHILS % (AUTO) 76.5 % (45.0-75.0); PLATELET COUNT 156 K/UL (150-450); RED BLOOD COUNT 3.22 M/UL (4.20-5.40); RED CELL DISTRIBUTION WIDTH 16.3 % (11.6-14.8); WHITE BLOOD COUNT 4.8 K/UL (4.8-10.8)
[2020-03-13 07:40] LABS: ANION GAP 5 mmol/L (5-15); BLOOD UREA NITROGEN 7 mg/dL (7-18); CALCIUM 8.1 MG/DL (8.5-10.1); CARBON DIOXIDE 36 MMOL/L (21-32); CHLORIDE 97 MMOL/L (98-107); CREATININE 0.6 MG/DL (0.55-1.30); SODIUM 138 MMOL/L (136-145)
--- NOTE | 2020-03-13 08:29 | General Progress Note ---
Assessment/Plan Status: progressing, unchanged Assessment/Plan: macrocytic anemia elevated LFTS cirrhosis cellulitis elevated Ammonia levels abd us>> reviewed lactulose and Xifaxan fu stool ob>>>neg s/p one unit PRBC in this admission GI procedures if needed abx per id hepatitis panel>>>>>positive for hep C>>> needs out patient fu nutrition eval appreciated>>> cardiac diet will fu now COVID 19 positive Subjective ROS Limited/Unobtainable: No Allergies: Coded Allergies: No Known Allergies (Unverified , 02/29/20) Objective Last 24 Hour Vital Signs Date Time Temp Pulse Resp B/P (MAP) Pulse Ox O2 Delivery O2 Flow Rate FiO2 03/13/20 08:00 96.7 73 18 114/60 (78) 91 03/13/20 04:00 97.3 20 122/68 (86) 92 03/13/20 04:00 70 03/13/20 00:00 71 03/13/20 00:00 97.5 20 137/76 (96) 92 03/12/20 21:00 Non-Rebreather 15.0 Non-Rebreather 15.0 03/12/20 20:00 69 03/12/20 20:00 97.7 19 115/60 (78) 94 03/12/20 16:00 71 03/12/20 16:00 97.5 74 20 116/69 (85) 90 03/12/20 12:00 97.1 72 20 116/62 (80) 90 03/12/20 12:00 70 03/12/20 09:00 Non-Rebreather 15.0 Non-Rebreather 15.0 Intake and Output 03/12/20 03/13/20 19:00 07:00 Intake Total 500 ml Output Total 1400 ml Balance -900 ml Intake Oral 500 ml Output Urine Total 1400 ml # Voids 4 # Bowel Movements 1 1 Laboratory Tests 03/13/20 06:17: White Blood Count 4.8, Red Blood Count 3.22L, Hemoglobin 10.6L, Hematocrit 32.3L , Mean Corpuscular Volume 100H, Mean Corpuscular Hemoglobin 33.0H, Mean Corpuscular Hemoglobin Concent 32.9, Red Cell Distribution Width 16.3H, Platelet Count 156, Mean Platelet Volume 5.3L, Neutrophils (%) (Auto) 76.5H, Lymphocytes (%) (Auto) 17.0L, Monocytes (%) (Auto) 4.0, Eosinophils (%) (Auto) 2.3, Basophils (%) (Auto) 0.2, Sodium Level 138, Potassium Level 3.0L, Chloride Level 97L, Carbon Dioxide Level 36H, Anion Gap 5, Blood Urea Nitrogen 7, Creatinine 0.6, Estimat Glomerular Filtration Rate > 60, Glucose Level 67L, Calcium Level 8.1L Height (Feet): 5 Height (Inches): 1.00 Weight (Pounds): 264 General Appearance: no apparent distress EENT: TMs normal Neck: supple Cardiovascular: normal rate Respiratory/Chest: chest wall non-tender Abdomen: normal bowel sounds, non tender, soft Extremities: normal range of motion, non-tender Tam Spicer MD Mar 13, 2020 08:29
[2020-03-13] MEDS: Lactulose 10gm/15ml UDC ORAL SCH ×2 (08:49→12:50)
[2020-03-13] MEDS: Enoxaparin 40mg Inj SUBQ SCH (08:51)
--- NOTE | 2020-03-13 10:28 | Diagnostic Imaging Report ---
Indication: Shortness of breath Technique: One view of the chest Comparison: For 06/12/2019 Findings: Bilateral infiltrates have increased somewhat, with increased hazy airspace disease bilaterally. The heart size is upper limits of normal. Impression: Worsening bilateral diffuse hazy airspace infiltrates bilaterally on background of interstitial and airspace disease, since prior exam of 6 days earlier
--- NOTE | 2020-03-13 10:47 | Infectious Diseases Prog Note ---
Assessment/Plan Assessment/Plan IMPRESSION: 1. Bilateral leg cellulitis,Pseudomonas in culture 2. Anemia. 3. Hypoxemia 4. Thrombocytopenia. 5. Homeless 6. Morbid obesity. 7. Cirrhosis 8. COVID19 pneumonia RECOMMENDATION: Will f/u COVID19 test Continue Plaquenil until tonight Start on Cefepime & Zithromax Negative VQ scan Subjective ROS Limited/Unobtainable: Yes Constitutional: Denies: fever Respiratory: Reports: other - transferred to ICU because of respiratory distress Allergies: Coded Allergies: No Known Allergies (Unverified , 02/29/20) Objective Vital Signs Last 24 Hour Vital Signs Date Time Temp Pulse Resp B/P (MAP) Pulse Ox O2 Delivery O2 Flow Rate FiO2 03/13/20 10:37 74 03/13/20 10:30 97.3 74 18 114/55 (74) 86 03/13/20 08:00 96.7 73 18 114/60 (78) 91 03/13/20 04:00 97.3 20 122/68 (86) 92 03/13/20 04:00 70 03/13/20 00:00 71 03/13/20 00:00 97.5 20 137/76 (96) 92 03/12/20 21:00 Non-Rebreather 15.0 Non-Rebreather 15.0 03/12/20 20:00 69 03/12/20 20:00 97.7 19 115/60 (78) 94 03/12/20 16:00 71 03/12/20 16:00 97.5 74 20 116/69 (85) 90 03/12/20 12:00 97.1 72 20 116/62 (80) 90 03/12/20 12:00 70 Height (Feet): 5 Height (Inches): 1.00 Weight (Pounds): 264 HEENT: mucous membranes moist Respiratory/Chest: other - oxygen by mask Cardiovascular: normal rate Abdomen: soft, non tender Extremities: other - legs edema Skin: other - stasis dematitis Neurologic/Psychiatric: alert, responsive Laboratory Tests Test 03/13/20 06:17 03/13/20 09:16 White Blood Count 4.8 K/UL (4.8-10.8) Red Blood Count 3.22 M/UL (4.20-5.40) L Hemoglobin 10.6 G/DL (12.0-16.0) L Hematocrit 32.3 % (37.0-47.0) L Mean Corpuscular Volume 100 FL (80-99) H Mean Corpuscular Hemoglobin 33.0 PG (27.0-31.0) H Mean Corpuscular Hemoglobin Concent 32.9 G/DL (32.0-36.0) Red Cell Distribution Width 16.3 % (11.6-14.8) H Platelet Count 156 K/UL (150-450) Mean Platelet Volume 5.3 FL (6.5-10.1) L Neutrophils (%) (Auto) 76.5 % (45.0-75.0) H Lymphocytes (%) (Auto) 17.0 % (20.0-45.0) L Monocytes (%) (Auto) 4.0 % (1.0-10.0) Eosinophils (%) (Auto) 2.3 % (0.0-3.0) Basophils (%) (Auto) 0.2 % (0.0-2.0) Sodium Level 138 MMOL/L (136-145) Potassium Level 3.0 MMOL/L (3.5-5.1) L Chloride Level 97 MMOL/L (98-107) L Carbon Dioxide Level 36 MMOL/L (21-32) H Anion Gap 5 mmol/L (5-15) Blood Urea Nitrogen 7 mg/dL (7-18) Creatinine 0.6 MG/DL (0.55-1.30) Estimat Glomerular Filtration Rate > 60 mL/min (>60) Glucose Level 67 MG/DL (74-106) L Calcium Level 8.1 MG/DL (8.5-10.1) L Arterial Blood pH 7.502 (7.350-7.450) Arterial Blood Partial Pressure CO2 46.3 mmHg (35.0-45.0) H Arterial Blood Partial Pressure O2 58.3 mmHg (75.0-100.0) L Arterial Blood HCO3 33.5 mmol/L (22.0-26.0) H Arterial Blood Oxygen Saturation 90.1 % (95-100) L Arterial Blood Base Excess 11 (-2-2) *H Joaquin Test Positive Current Medications Medications (Trade) Dose Ordered Sig/Dolores Route PRN Reason Start Time Stop Time Status Last Admin Dose Admin Acetaminophen (Tylenol) 650 mg Q4H PRN ORAL Mild Pain (Pain Scale 1-3) 03/07/20 18:00 03/30/20 17:59 Acetaminophen (Tylenol) 650 mg Q4H PRN ORAL Temp >100 03/07/20 18:00 04/01/20 17:59 Albuterol Sulfate (Proventil MDI) 2 puff Q6HRT INH 03/07/20 19:00 06/05/20 12:59 03/13/20 07:00 Diphenhydramine HCl (Benadryl) 25 mg Q4H PRN ORAL moderate itching 03/07/20 18:00 03/30/20 17:59 03/12/20 13:37 Diphenhydramine HCl (Benadryl) 50 mg Q4H PRN ORAL SEVERE ITCHING 03/07/20 18:00 03/30/20 17:59 03/13/20 00:49 Enoxaparin Sodium (Lovenox) 40 mg DAILY SUBQ 03/12/20 09:00 06/10/20 08:59 03/13/20 08:51 Furosemide (Lasix) 40 mg BID IV 03/10/20 09:00 04/06/20 10:29 03/13/20 08:48 Hydroxychloroquine Sulfate (Plaquenil) 200 mg Q12HR ORAL 03/10/20 09:00 03/13/20 21:01 03/13/20 08:49 Lactulose (Cephulac) 10 gm THREE TIMES A DAY ORAL 03/07/20 18:00 04/01/20 12:59 03/12/20 17:24 Mirtazapine (Remeron) 7.5 mg BEDTIME PRN ORAL SLEEP 03/07/20 18:00 05/31/20 17:59 Morphine Sulfate (Morphine Sulfate) 2 mg Q4H PRN IVP FOR PAIN LEVEL OF 4-10 03/08/20 21:15 03/15/20 21:14 03/12/20 21:06 Potassium Chloride (K-Dur) 20 meq DAILY ORAL 03/13/20 09:00 06/11/20 08:59 03/13/20 08:48 Jonathon Shah MD Mar 13, 2020 10:47
[2020-03-13] MEDS ORDERED: Cefepime HCl 1 GM in D5W 55 ML IVPB SCH (11:00)
[2020-03-13] MEDS ORDERED: Azithromycin 250mg tab ORAL SCH (11:00)
[2020-03-13] MEDS ORDERED: Lidocaine 1% Plain 30 ml INJ PRN ×2 (12:00→14:30)
[2020-03-13] MEDS ORDERED: Heparin1,000 units/500ml Premix(Conc:2 units/ml) IV PRN ×2 (12:00→14:54)
[2020-03-13] MEDS ORDERED: Sodium Chloride for KCL Premix x 2hrs IV SCH (12:30)
[2020-03-13] MEDS: Morphine Sulfate 2mg/ml Inj(IV/IM USE ONLY) IVP PRN ×2 (12:47→20:41)
[2020-03-13] MEDS ORDERED: DiphenhydrAMINE 25mg Tab ORAL PRN (14:54)
[2020-03-13] MEDS: D5 1/2NS 1,000 ML IV SCH (15:46)
--- NOTE | 2020-03-13 16:44 | Surgery Progress Note ---
Surgery Progress Note Subjective Additional Comments no acute events labs noted ill appearing Objective Last 24 Hour Vital Signs Date Time Temp Pulse Resp B/P (MAP) Pulse Ox O2 Delivery O2 Flow Rate FiO2 03/13/20 14:00 76 24 105/53 (70) 88 03/13/20 13:00 75 17 113/57 (75) 87 03/13/20 12:00 97.8 74 26 102/49 (66) 84 03/13/20 12:00 Non-Rebreather 15.0 03/13/20 11:00 75 20 89/34 (52) 81 03/13/20 10:43 Non-Rebreather 15.0 Non-Rebreather 15.0 03/13/20 10:37 74 03/13/20 10:30 97.3 74 18 114/55 (74) 86 03/13/20 08:00 96.7 73 18 114/60 (78) 91 03/13/20 04:00 97.3 20 122/68 (86) 92 03/13/20 04:00 70 03/13/20 00:00 71 03/13/20 00:00 97.5 20 137/76 (96) 92 03/12/20 21:00 Non-Rebreather 15.0 Non-Rebreather 15.0 03/12/20 20:00 69 03/12/20 20:00 97.7 19 115/60 (78) 94 I&O Intake and Output 03/12/20 03/13/20 19:00 07:00 Intake Total 500 ml Output Total 1400 ml Balance -900 ml Intake Oral 500 ml Output Urine Total 1400 ml # Voids 4 # Bowel Movements 1 1 Dressing: other Wound: other Drains: other Cardiovascular: RSR Respiratory: decreased breath sounds Abdomen: non-tender, present bowel sounds Extremities: edema, tenderness, no cyanosis Laboratory Tests Test 03/13/20 06:17 03/13/20 09:16 White Blood Count 4.8 K/UL (4.8-10.8) Red Blood Count 3.22 M/UL (4.20-5.40) L Hemoglobin 10.6 G/DL (12.0-16.0) L Hematocrit 32.3 % (37.0-47.0) L Mean Corpuscular Volume 100 FL (80-99) H Mean Corpuscular Hemoglobin 33.0 PG (27.0-31.0) H Mean Corpuscular Hemoglobin Concent 32.9 G/DL (32.0-36.0) Red Cell Distribution Width 16.3 % (11.6-14.8) H Platelet Count 156 K/UL (150-450) Mean Platelet Volume 5.3 FL (6.5-10.1) L Neutrophils (%) (Auto) 76.5 % (45.0-75.0) H Lymphocytes (%) (Auto) 17.0 % (20.0-45.0) L Monocytes (%) (Auto) 4.0 % (1.0-10.0) Eosinophils (%) (Auto) 2.3 % (0.0-3.0) Basophils (%) (Auto) 0.2 % (0.0-2.0) Sodium Level 138 MMOL/L (136-145) Potassium Level 3.0 MMOL/L (3.5-5.1) L Chloride Level 97 MMOL/L (98-107) L Carbon Dioxide Level 36 MMOL/L (21-32) H Anion Gap 5 mmol/L (5-15) Blood Urea Nitrogen 7 mg/dL (7-18) Creatinine 0.6 MG/DL (0.55-1.30) Estimat Glomerular Filtration Rate > 60 mL/min (>60) Glucose Level 67 MG/DL (74-106) L Calcium Level 8.1 MG/DL (8.5-10.1) L Arterial Blood pH 7.502 (7.350-7.450) Arterial Blood Partial Pressure CO2 46.3 mmHg (35.0-45.0) H Arterial Blood Partial Pressure O2 58.3 mmHg (75.0-100.0) L Arterial Blood HCO3 33.5 mmol/L (22.0-26.0) H Arterial Blood Oxygen Saturation 90.1 % (95-100) L Arterial Blood Base Excess 11 (-2-2) *H Joaquin Test Positive Plan Problems: (1) Cellulitis Assessment & Plan: bilateral lower extremity cellulitis / edema chronic venous status changes dermatitis no abscess no purulent drainage ulcerations forming. keep lower extremity elevated while in bed apply skin protectant / moisturizing cream daily okay to shower okay to wrap soft after cream abx as per ID for cellulitis okay for diet duplex ordered trend labs will follow with recs thank you No evidence of deep venous thrombosis involving the visualized veins of the RIGHT lower extremity. refused eval of left COVID ++ cxr noted cont current supportive care improving labs stable Theron Sotomayor Mar 13, 2020 16:44
--- NOTE | 2020-03-13 17:00 | Pre-Procedure Note/Attestation ---
Pre-Procedure Note/Attestation Complete Prior to Procedure Planned Procedure: not applicable Procedure Narrative: PICC Indications for Procedure Pre-Operative Diagnosis: needs terminal clerk IV access Attestation I attest that I discussed the nature of the procedure; its benefits; risks and complications; and alternatives (and the risks and benefits of such alternatives ), prior to the procedure, with the patient (or the patient's legal textile designs sales representative). I attest that, if there was a reasonable possibility of needing a blood transfusion, the patient (or the patient's legal textile designs sales representative) was given the [facility] standardized written summary, pursuant to the Mart Megha Blood Safety Act ([place] Health and Safety Code # 1645, as amended). I attest that I re-evaluated the patient just prior to the surgery and that there has been no change in the patient's H&P, except as documented below: Ollie Barriga MD Mar 13, 2020 17:00
--- NOTE | 2020-03-13 17:01 | Brief Operative Note ---
Immediate Post Operative Note Operative Note Pre-op Diagnosis: needs termination clerk IV access Procedure: PICC Post-op Diagnosis: same as pre-op Surgeon: ariana kulkarni Anesthesia: local Specimen: none Complications: none Fluids: none Implant(s) used?: No Ollie Kulkarni MD Mar 13, 2020 17:01
--- NOTE | 2020-03-13 17:09 | Diagnostic Imaging Report ---
Indications: Needs long-term IV access Technique: Procedure performed at bedside. Procedural timeout performed. Ultrasound confirms patent compressible left basilic vein. Total sterile technique, including sterile probe cover and sterile gel, sterile gloves, hand hygiene, hat, mask,, sterile gown, large sterile drape, and preparation with 2% chlorhexidine utilized. Local anesthesia with 1% lidocaine. Under real-time ultrasound guidance, puncture basilic vein using 21-gauge needle, passage 0.018 guidewire, exchange for 4 Syriac peel-away sheath. 4 Syriac Bard dual-lumen power PICC cut to 47 cm. It was inserted through the peel-away sheath. Peel-away sheath and guidewire removed. Catheter fixed to the skin. Both catheter ports aspirated and flushed. Patient tolerated procedure well, without immediate complication. Followup chest x-ray obtained, documents catheter tip position at the cavoatrial junction Impression: Successful bedside placement of left arm PICC under sonographic guidance, as described above.
[2020-03-13] MEDS ORDERED: Lactulose 10gm/15ml UDC ORAL SCH (18:00)
[2020-03-13] MEDS: Dyna-Hex 2% Top Sol 2oz TOPIC SCH (19:41)
[2020-03-13] MEDS ORDERED: Dyna-Hex 2% Top Sol 2oz TOPIC SCH (20:00)
[2020-03-13] MEDS: Cefepime HCl 1 GM in D5W 55 ML IVPB SCH (20:39)
--- NOTE | 2020-03-13 22:04 | General Progress Note ---
Assessment/Plan Problem List: (1) Cellulitis ICD Codes: L03.90 - Cellulitis, unspecified SNOMED: [id number] Qualifiers: Qualified Codes: L03.119 - Cellulitis of unspecified part of limb Status: progressing, unchanged Assessment/Plan: cellulitis of legs low k coivd positive resps insuff pna sepsis anemia cirrhosis obese Subjective ROS Limited/Unobtainable: Yes Allergies: Coded Allergies: No Known Allergies (Unverified , 02/29/20) Objective Last 24 Hour Vital Signs Date Time Temp Pulse Resp B/P (MAP) Pulse Ox O2 Delivery O2 Flow Rate FiO2 03/13/20 21:51 98.3 03/13/20 19:00 70 17 116/60 (78) 97 03/13/20 18:00 70 23 100/58 (72) 97 03/13/20 17:00 72 17 101/52 (68) 91 03/13/20 16:00 71 16 101/53 (69) 96 03/13/20 16:00 97.9 03/13/20 16:00 Non-Rebreather 15.0 03/13/20 16:00 74 03/13/20 15:00 70 21 124/59 (80) 92 03/13/20 14:00 76 24 105/53 (70) 88 03/13/20 13:00 75 17 113/57 (75) 87 03/13/20 12:00 97.8 74 26 102/49 (66) 84 03/13/20 12:00 Non-Rebreather 15.0 03/13/20 12:00 76 03/13/20 11:00 75 20 89/34 (52) 81 03/13/20 10:43 Non-Rebreather 15.0 Non-Rebreather 15.0 03/13/20 10:37 74 03/13/20 10:30 97.3 74 18 114/55 (74) 86 03/13/20 08:00 96.7 73 18 114/60 (78) 91 03/13/20 04:00 97.3 20 122/68 (86) 92 03/13/20 04:00 70 03/13/20 00:00 71 03/13/20 00:00 97.5 20 137/76 (96) 92 Intake and Output 03/12/20 03/13/20 19:00 07:00 Intake Total 500 ml Output Total 1400 ml Balance -900 ml Intake Oral 500 ml Output Urine Total 1400 ml # Voids 4 # Bowel Movements 1 1 Laboratory Tests 03/13/20 06:17: White Blood Count 4.8, Red Blood Count 3.22L, Hemoglobin 10.6L, Hematocrit 32.3L , Mean Corpuscular Volume 100H, Mean Corpuscular Hemoglobin 33.0H, Mean Corpuscular Hemoglobin Concent 32.9, Red Cell Distribution Width 16.3H, Platelet Count 156, Mean Platelet Volume 5.3L, Neutrophils (%) (Auto) 76.5H, Lymphocytes (%) (Auto) 17.0L, Monocytes (%) (Auto) 4.0, Eosinophils (%) (Auto) 2.3, Basophils (%) (Auto) 0.2, Sodium Level 138, Potassium Level 3.0L, Chloride Level 97L, Carbon Dioxide Level 36H, Anion Gap 5, Blood Urea Nitrogen 7, Creatinine 0.6, Estimat Glomerular Filtration Rate > 60, Glucose Level 67L, Calcium Level 8.1L 03/13/20 09:16: Arterial Blood pH 7.502H, Arterial Blood Partial Pressure CO2 46.3H, Arterial Blood Partial Pressure O2 58.3L, Arterial Blood HCO3 33.5H, Arterial Blood Oxygen Saturation 90.1L, Arterial Blood Base Excess 11*H, Joaquin Test Positive Height (Feet): 5 Height (Inches): 1.00 Weight (Pounds): 264 Celso Moreno MD Mar 13, 2020 22:04
--- NOTE | 2020-03-13 23:59 | Cardiology Progress Note ---
Assessment/Plan Assessment/Plan 1. Noncardiac chest pain, acute myocardial function is ruled out by two negative troponin I levels, 12-lead electrocardiogram does not show any acute ischemic changes. Continue furosemide. 2. Bilateral lower extremity cellulitis with Pseudomonas aeruginosa in culture. 3. Pancytopenia, most likely due to hepatitis C virus infection/liver cirrhosis. 4. Homeless. Subjective Subjective Sinus rhythm at rate of 64. Objective Last 24 Hour Vital Signs Date Time Temp Pulse Resp B/P (MAP) Pulse Ox O2 Delivery O2 Flow Rate FiO2 03/13/20 22:00 67 20 114/57 (76) 92 03/13/20 21:51 98.3 03/13/20 21:00 66 22 106/54 (71) 88 03/13/20 20:00 Non-Rebreather 15.0 03/13/20 20:00 98.0 71 22 96/61 (73) 92 03/13/20 19:00 70 17 116/60 (78) 97 03/13/20 18:00 70 23 100/58 (72) 97 03/13/20 17:00 72 17 101/52 (68) 91 03/13/20 16:00 71 16 101/53 (69) 96 03/13/20 16:00 97.9 03/13/20 16:00 Non-Rebreather 15.0 03/13/20 16:00 74 03/13/20 15:00 70 21 124/59 (80) 92 03/13/20 14:00 76 24 105/53 (70) 88 03/13/20 13:00 75 17 113/57 (75) 87 03/13/20 12:00 97.8 74 26 102/49 (66) 84 03/13/20 12:00 Non-Rebreather 15.0 03/13/20 12:00 76 03/13/20 11:00 75 20 89/34 (52) 81 03/13/20 10:43 Non-Rebreather 15.0 Non-Rebreather 15.0 03/13/20 10:37 74 03/13/20 10:30 97.3 74 18 114/55 (74) 86 03/13/20 08:00 96.7 73 18 114/60 (78) 91 03/13/20 04:00 97.3 20 122/68 (86) 92 03/13/20 04:00 70 03/13/20 00:00 71 03/13/20 00:00 97.5 20 137/76 (96) 92 Intake and Output 03/12/20 03/13/20 19:00 07:00 Intake Total 500 ml Output Total 1400 ml Balance -900 ml Intake Oral 500 ml Output Urine Total 1400 ml # Voids 4 # Bowel Movements 1 1 Laboratory Tests Test 03/13/20 06:17 03/13/20 09:16 White Blood Count 4.8 K/UL (4.8-10.8) Red Blood Count 3.22 M/UL (4.20-5.40) L Hemoglobin 10.6 G/DL (12.0-16.0) L Hematocrit 32.3 % (37.0-47.0) L Mean Corpuscular Volume 100 FL (80-99) H Mean Corpuscular Hemoglobin 33.0 PG (27.0-31.0) H Mean Corpuscular Hemoglobin Concent 32.9 G/DL (32.0-36.0) Red Cell Distribution Width 16.3 % (11.6-14.8) H Platelet Count 156 K/UL (150-450) Mean Platelet Volume 5.3 FL (6.5-10.1) L Neutrophils (%) (Auto) 76.5 % (45.0-75.0) H Lymphocytes (%) (Auto) 17.0 % (20.0-45.0) L Monocytes (%) (Auto) 4.0 % (1.0-10.0) Eosinophils (%) (Auto) 2.3 % (0.0-3.0) Basophils (%) (Auto) 0.2 % (0.0-2.0) Sodium Level 138 MMOL/L (136-145) Potassium Level 3.0 MMOL/L (3.5-5.1) L Chloride Level 97 MMOL/L (98-107) L Carbon Dioxide Level 36 MMOL/L (21-32) H Anion Gap 5 mmol/L (5-15) Blood Urea Nitrogen 7 mg/dL (7-18) Creatinine 0.6 MG/DL (0.55-1.30) Estimat Glomerular Filtration Rate > 60 mL/min (>60) Glucose Level 67 MG/DL (74-106) L Calcium Level 8.1 MG/DL (8.5-10.1) L Arterial Blood pH 7.502 (7.350-7.450) Arterial Blood Partial Pressure CO2 46.3 mmHg (35.0-45.0) H Arterial Blood Partial Pressure O2 58.3 mmHg (75.0-100.0) L Arterial Blood HCO3 33.5 mmol/L (22.0-26.0) H Arterial Blood Oxygen Saturation 90.1 % (95-100) L Arterial Blood Base Excess 11 (-2-2) *H Joaquin Test Positive Objective HEENT: Atraumatic and normocephalic. Anicteric. Pupils are equal, round, and reactive to light and accommodation. Extraocular muscles intact. NECK: JVP cannot be assessed. No carotid bruit. Carotid upstroke is 2+ bilaterally. CARDIOVASCULAR: Normal S1, S2. Regular rate and rhythm. No murmurs, gallops, or rubs. PMI is at fourth intercostal space at left midclavicular line. LUNGS: Clear to auscultation bilaterally. ABDOMEN: Soft, nontender, and nondistended. No hepatosplenomegaly. Positive bowel sounds. EXTREMITIES: A 2+ edema bilaterally associated with erythema with blistering and crossing of both feet. Berto Gonzalez MD Mar 13, 2020 23:59
[2020-03-14] VITALS (44 sets, daily range): BP systolic 75–134; BP diastolic 35–80
[2020-03-14] MEDS: Albuterol 90mcg Inhaler 8gm INH SCH ×4 (01:23→17:19)
--- NOTE | 2020-03-14 01:38 | Pulmonolgy Critical Care Note ---
Critical Care - Asmt/Plan Assessment/Plan: Pulmonary CCM Progress Note HPI Patient is a 59 year old woman with significant obesity, admitted with bilateral lower extremity cellulitis, had complained of increased swelling and redness to both of her feet and legs Had elevated BNP on admission, persistent edema since admission, worsening hypoxia, LE DVT (right) negative for DVT. Patient is a poor historian reports that she has been having increased weakness over the past several days [employer], enied any fevers, vomiting or diarrhea, has had previous hospitalizations for cellulitis. COVID 19 positive, Pneumonia VQ no significant perfusion abnormality Despite being diuresed, worsening infiltrates on CXR, worsening hypoxia High oxygen requirements - on NRB, now in ICU, NPO Seen on 03/13/2020 Allergies: No Known Allergies Past Medical History: Obesity, Cirrhosis, Anemia, Anxiety, Cellulitis All Other Systems: negative except mentioned in HPI Physical Exam Vital Signs Noted General Appearance: Obese, no apparent distress Head: normocephalic, atraumatic Eyes: bilateral eye PERRL, bilateral eye EOMI ENT: EOM grossly intact, moist MM, no LN Respiratory: lungs clear, no respiratory distress, no retraction Cardiovascular: regular rate, rhythm, HS1, HS2 RRR Gastrointestinal: Obese, soft non tender, ND Musculoskeletal: Significant edema and erythema bilateral lower extremity, patient also has crusting on both feet, Neurologic: alert, oriented x3 Impression: Bilateral Lower Extremity Cellulitis Elevated NPA, severe bilateral edema Covid Pneumonia Worsening hypoxia, elevated PCO2 of 48 Cirrhosis Splenomegaly Anemia Anxiety Plan IV Antibiotics per ID Surgery following for wounds Hematology following for anemia, observing for Neutropenia Diurese PRN Monitor labs Bronchodilators PPX - SCD Echocardiogram O2 PRN (cannot use BiPAP as COVID PNA) NPO as will need intubation if deterioration continues Albuterol PRN Labs Noted Chest X-Ray: Cardiomegaly, left lower lobe atelectasis versus effusion, worsening infiltrates/congestion Subjective ROS Limited/Unobtainable: No Constitutional: Reports: no symptoms Gastrointestinal/Abdominal: Reports: no symptoms Musculoskeletal: Reports: other - SOB Allergies: Coded Allergies: No Known Allergies (Unverified , 02/29/20) ICU time 50 minutes Critical Care - Objective Last 24 Hour Vital Signs Date Time Temp Pulse Resp B/P (MAP) Pulse Ox O2 Delivery O2 Flow Rate FiO2 03/14/20 00:00 Non-Rebreather 15.0 03/14/20 00:00 98.0 71 23 107/56 (73) 92 03/13/20 23:00 70 21 104/53 (70) 96 03/13/20 22:00 67 20 114/57 (76) 92 03/13/20 21:51 98.3 03/13/20 21:00 66 22 106/54 (71) 88 03/13/20 20:00 Non-Rebreather 15.0 03/13/20 20:00 98.0 71 22 96/61 (73) 92 03/13/20 19:00 70 17 116/60 (78) 97 03/13/20 18:00 70 23 100/58 (72) 97 03/13/20 17:00 72 17 101/52 (68) 91 03/13/20 16:00 71 16 101/53 (69) 96 03/13/20 16:00 97.9 03/13/20 16:00 Non-Rebreather 15.0 03/13/20 16:00 74 03/13/20 15:00 70 21 124/59 (80) 92 03/13/20 14:00 76 24 105/53 (70) 88 03/13/20 13:00 75 17 113/57 (75) 87 03/13/20 12:00 97.8 74 26 102/49 (66) 84 03/13/20 12:00 Non-Rebreather 15.0 03/13/20 12:00 76 03/13/20 11:00 75 20 89/34 (52) 81 03/13/20 10:43 Non-Rebreather 15.0 Non-Rebreather 15.0 03/13/20 10:37 74 03/13/20 10:30 97.3 74 18 114/55 (74) 86 03/13/20 08:00 96.7 73 18 114/60 (78) 91 03/13/20 04:00 97.3 20 122/68 (86) 92 03/13/20 04:00 70 Critical Care - Subjective ROS Limited/Unobtainable: No Condition: critical IV Access: PICC EKG Rhythm: Sinus Rhythm I&O: Intake and Output 03/13/20 03/14/20 19:00 07:00 Intake Total 250 ml 100 ml Output Total 700 ml 1050 ml Balance -450 ml -950 ml Intake Oral 120 ml 100 ml IV Total 130 ml Output Urine Total 700 ml 1050 ml # Voids 2 # Bowel Movements 8 2 Doron Carrillo MD Mar 14, 2020 01:38
--- NOTE | 2020-03-14 02:00 | Progress Note ---
DATE: 03/13/2020 HISTORY OF PRESENT ILLNESS: The patient is doing well. The patient's pain has improved. She is now in ICU. The patient is able to answer the questions. Anxiety, depressed mood, anhedonia, and worthlessness. MENTAL STATUS EXAMINATION: Alert and oriented to times self, place, and situation. Mood is neutral. Affect is flat. Thought process is concrete. Thought content, no suicidal or homicidal ideation. Cognition is intact. Insight and judgment intact. ASSESSMENT: Anxiety disorder. PLAN: No medication changes. Justice Manriquez M.D. DR: Praveen JOB#: [id number] CC:
[2020-03-14 06:19] LABS: BASOPHILS % (AUTO) 0.7 % (0.0-2.0); EOSINOPHILS % (AUTO) 4.1 % (0.0-3.0); HEMATOCRIT 29.3 % (37.0-47.0); HEMOGLOBIN 9.6 G/DL (12.0-16.0); LYMPHOCYTES % (AUTO) 12.2 % (20.0-45.0); MEAN CORPUSCULAR VOLUME 100 FL (80-99); MONOCYTES % (AUTO) 8.5 % (1.0-10.0); NEUTROPHILS % (AUTO) 74.4 % (45.0-75.0); PLATELET COUNT 118 K/UL (150-450); RED BLOOD COUNT 2.92 M/UL (4.20-5.40); RED CELL DISTRIBUTION WIDTH 16.7 % (11.6-14.8); WHITE BLOOD COUNT 4.5 K/UL (4.8-10.8)
[2020-03-14 06:43] LABS: ALANINE AMINOTRANSFERASE 19 U/L (12-78); ALBUMIN 1.8 G/DL (3.4-5.0); ALBUMIN/GLOBULIN RATIO 0.3 (1.0-2.7); ALKALINE PHOSPHATASE 97 U/L (46-116); ANION GAP 3 mmol/L (5-15); ASPARTATE AMINO TRANSFERASE 71 U/L (15-37); BILIRUBIN,TOTAL 1.4 MG/DL (0.2-1.0); BLOOD UREA NITROGEN 6 mg/dL (7-18); CALCIUM 7.6 MG/DL (8.5-10.1); CARBON DIOXIDE 39 MMOL/L (21-32); CHLORIDE 98 MMOL/L (98-107); CREATININE 0.6 MG/DL (0.55-1.30); SODIUM 139 MMOL/L (136-145)
--- NOTE | 2020-03-14 06:51 | General Progress Note ---
Assessment/Plan Status: progressing, unchanged Assessment/Plan: macrocytic anemia elevated LFTS cirrhosis cellulitis elevated Ammonia levels respiratory distress COVID positive feeding on hold since last night given respiratory distress>>> will resume when more stable patietn on 100% non breather abd us>> reviewed lactulose and Xifaxan fu stool ob>>>neg s/p one unit PRBC in this admission GI procedures if needed abx per id hepatitis panel>>>>>positive for hep C>>> needs out patient fu nutrition eval appreciated>>> cardiac diet will fu Subjective ROS Limited/Unobtainable: No Allergies: Coded Allergies: No Known Allergies (Unverified , 02/29/20) Objective Last 24 Hour Vital Signs Date Time Temp Pulse Resp B/P (MAP) Pulse Ox O2 Delivery O2 Flow Rate FiO2 03/14/20 06:00 70 25 98/52 (67) 90 03/14/20 05:00 72 30 95/57 (70) 87 03/14/20 04:00 98.3 75 19 116/62 (80) 95 03/14/20 04:00 69 03/14/20 04:00 Non-Rebreather 15.0 03/14/20 03:00 72 24 118/54 (75) 89 03/14/20 02:00 70 26 105/48 (67) 88 03/14/20 01:00 74 20 108/56 (73) 86 03/14/20 00:00 Non-Rebreather 15.0 03/14/20 00:00 67 03/14/20 00:00 Non-Rebreather 15.0 03/14/20 00:00 98.0 71 23 107/56 (73) 92 03/13/20 23:00 70 21 104/53 (70) 96 03/13/20 22:00 67 20 114/57 (76) 92 03/13/20 21:51 98.3 03/13/20 21:00 66 22 106/54 (71) 88 03/13/20 20:00 Non-Rebreather 15.0 03/13/20 20:00 68 03/13/20 20:00 98.0 71 22 96/61 (73) 92 03/13/20 19:00 70 17 116/60 (78) 97 03/13/20 18:00 70 23 100/58 (72) 97 4/27/20 17:00 72 17 101/52 (68) 91 03/13/20 16:00 71 16 101/53 (69) 96 03/13/20 16:00 97.9 03/13/20 16:00 Non-Rebreather 15.0 03/13/20 16:00 74 03/13/20 15:00 70 21 124/59 (80) 92 03/13/20 14:00 76 24 105/53 (70) 88 03/13/20 13:00 75 17 113/57 (75) 87 03/13/20 12:00 97.8 74 26 102/49 (66) 84 03/13/20 12:00 Non-Rebreather 15.0 03/13/20 12:00 76 03/13/20 11:00 75 20 89/34 (52) 81 03/13/20 10:43 Non-Rebreather 15.0 Non-Rebreather 15.0 03/13/20 10:37 74 03/13/20 10:30 97.3 74 18 114/55 (74) 86 03/13/20 08:00 96.7 73 18 114/60 (78) 91 Intake and Output 03/13/20 03/14/20 19:00 07:00 Intake Total 250 ml 540 ml Output Total 700 ml 1450 ml Balance -450 ml -910 ml Intake Oral 120 ml 100 ml IV Total 130 ml 440 ml Output Urine Total 700 ml 1450 ml # Voids 2 # Bowel Movements 8 2 Laboratory Tests 03/13/20 09:16: Arterial Blood pH 7.502H, Arterial Blood Partial Pressure CO2 46.3H, Arterial Blood Partial Pressure O2 58.3L, Arterial Blood HCO3 33.5H, Arterial Blood Oxygen Saturation 90.1L, Arterial Blood Base Excess 11*H, Joaquin Test Positive 03/14/20 00:28: Arterial Blood pH 7.495H, Arterial Blood Partial Pressure CO2 50.3H, Arterial Blood Partial Pressure O2 52.1L, Arterial Blood HCO3 37.9H, Arterial Blood Oxygen Saturation 86.3*L, Arterial Blood Base Excess 13.0*H, Joaquin Test Positive 03/14/20 03:30: White Blood Count [Pending], Red Blood Count [Pending], Hemoglobin [Pending], Hematocrit [Pending], Mean Corpuscular Volume [Pending], Mean Corpuscular Hemoglobin [Pending], Mean Corpuscular Hemoglobin Concent [Pending], Red Cell Distribution Width [Pending], Platelet Count [Pending], Mean Platelet Volume [ Pending], Neutrophils (%) (Auto) [Pending], Lymphocytes (%) (Auto) [Pending], Monocytes (%) (Auto) [Pending], Eosinophils (%) (Auto) [Pending], Basophils (%) (Auto) [Pending], Sodium Level [Pending], Potassium Level [Pending], Chloride Level [Pending], Carbon Dioxide Level [Pending], Blood Urea Nitrogen [Pending], Creatinine [Pending], Estimat Glomerular Filtration Rate [Pending], Glucose Level [Pending], Calcium Level [Pending], Total Bilirubin [Pending], Aspartate Amino Transf (AST/SGOT) [Pending], Alanine Aminotransferase (ALT/SGPT) [Pending] , Alkaline Phosphatase [Pending], Total Protein [Pending], Albumin [Pending], Globulin [Pending] Height (Feet): 5 Height (Inches): 1.00 Weight (Pounds): 238 General Appearance: lethargic EENT: normal ENT inspection Neck: supple Cardiovascular: normal rate Respiratory/Chest: decreased breath sounds Abdomen: normal bowel sounds, non tender, soft Extremities: non-tender Tam Spicer MD Mar 14, 2020 06:50
--- NOTE | 2020-03-14 06:55 | Hematology/Onc Progress Note ---
Assessment/Plan Assessment/Plan Assessment and Recs # Pancytopenia -- multiple etiologies could be related to underlying liver disease, medication-induced, infection versus viral syndrome versus underlying bone marrow cause, in this case, has severe liver disease and cirrhosis, HEP C++ , also cellulitis --> peripheral smear has been ordered and does not show significant abnormalities and none noted --> Medications have been reviewed --> Continue to monitor for improvement, trend cbc --> Hep panel and HIV are both negative --> US abd ordered to r/o cirrhosis and hepatosplenomegaly ->CIRRHOSIS IS NOTED , LARGE SPLEEN --> reverse isolation if ANC is <2000 --> Give neupogen if ANC <1000 --> Transfuse if hgb <7, with 1 unit prbc --> anemia panel ordered as well-->CW acd --> hgb trend 7-->7.1-->8.4-->8.2 -->8.7-->9.9 --> plt 145k-->152-->162k-->149k --> wbc 3.4-->3.5->3.9->4.4 --> abx: sameer/rifaximin # Cellulitis of the lower extremities --> continue abx as needed as per id --> Started on IV antibiotics --> as per surg recs, wound care # Ftt --> remains on mirtazapine # Elevated LFTS --> as per gi --> due to cirrhosis # Dvt ppx lovenox sq The timing of this note does not necessarily reflect the time of the patient was seen. Greatly appreciate consultation. Subjective Constitutional: Denies: no symptoms, chills, fever, malaise, weakness, other HEENT: Denies: no symptoms, eye pain, blurred vision, tearing, double vision, ear pain, ear discharge, nose pain, nose congestion, throat pain, throat swelling, mouth pain, mouth swelling, other Cardiovascular: Denies: no symptoms, chest pain, edema, irregular heart rate, lightheadedness, palpitations, syncope, other Respiratory: Denies: no symptoms, cough, shortness of breath, SOB with excertion, SOB at rest, sputum, wheezing, other Gastrointestinal/Abdominal: Denies: no symptoms, abdomen distended, abdominal pain, black stools, tarry stools, blood in stool, constipated, diarrhea, difficulty swallowing, nausea, poor appetite, poor fluid intake, rectal bleeding , vomiting, other Genitourinary: Denies: no symptoms, burning, discharge, frequency, flank pain, hematuria, incontinence, pain, urgency, other Neurologic/Psychiatric: Denies: no symptoms, anxiety, depressed, emotional problems, headache, numbness, paresthesia, pre-existing deficit, seizure, tingling, tremors, weakness, other Endocrine: Denies: no symptoms, excessive sweating, flushing, intolerance to cold, intolerance to heat, increased hunger, increased thirst, increased urine, unexplained weight gain, unexplained weight loss, other Hematologic/Lymphatic: Denies: no symptoms, anemia, easy bleeding, easy bruising, adenopathy, other Allergies: Coded Allergies: No Known Allergies (Unverified , 02/29/20) Subjective 03/02 no events, no bleeding, hgb 7.1, no hemolysis 03/03 s/p blood, hgb improved to 8.4, stool ob negtive, on abx 03/05 asleep, no acute distress, hgb 8.2 03/06 remains comfortable, on abx, plt remains low 03/07 is on nonrebreather, no night sweats, labs are noted 03/08 labs reviewed, being diuresed, seen by cards, psych, labs noted 03/09 lasix adjusted, wbc remains low at 3.9, reviewed meds, smear 03/10 no night sweats, no bleeding, labs noted, smear noted 03/12 labs noted, none completed, have reordered, cellulitis better 03/13 is continuing with chest pain, cards aware, no further studies until covid neg 03/14 labs noted, no bleeding, diuresis as needed, hgb stable Objective Objective Current Medications Medications (Trade) Dose Ordered Sig/Dolores Route PRN Reason Start Time Stop Time Status Last Admin Dose Admin Acetaminophen (Tylenol) 650 mg Q4H PRN ORAL Mild Pain (Pain Scale 1-3) 03/13/20 14:53 04/12/20 14:52 Acetaminophen (Tylenol) 650 mg Q4H PRN ORAL Temp >100 03/13/20 14:53 04/12/20 14:52 Albuterol Sulfate (Proventil MDI) 2 puff Q6HRT INH 03/13/20 19:00 06/05/20 12:59 03/14/20 06:19 Azithromycin (Zithromax) 500 mg DAILY ORAL 03/14/20 09:00 03/20/20 10:59 Cefepime HCl 1 gm/ Dextrose 55 ml @ 110 mls/hr EVERY 12 HOURS IVPB 03/13/20 21:00 03/20/20 10:59 03/13/20 20:39 Chlorhexidine Gluconate (Lucretia-Hex 2%) 1 applic DAILY@2000 TOPIC 03/13/20 20:00 06/11/20 19:59 03/13/20 19:41 Dextrose/Sodium Chloride 1,000 ml @ 40 mls/hr Q24H IV 03/13/20 14:55 04/12/20 14:54 03/13/20 15:46 Diphenhydramine HCl (Benadryl) 25 mg Q4H PRN ORAL moderate itching 03/13/20 14:54 04/12/20 14:53 Diphenhydramine HCl (Benadryl) 50 mg Q4H PRN ORAL SEVERE ITCHING 03/13/20 14:53 04/12/20 14:52 Enoxaparin Sodium (Lovenox) 40 mg DAILY SUBQ 03/14/20 09:00 06/10/20 08:59 Furosemide (Lasix) 40 mg BID IV 03/13/20 18:00 04/06/20 10:29 03/13/20 17:46 Mirtazapine (Remeron) 7.5 mg BEDTIME PRN ORAL SLEEP 03/13/20 14:55 06/11/20 14:54 Morphine Sulfate (Morphine Sulfate) 1 mg Q4H PRN IVP For Pain 03/13/20 14:55 03/20/20 14:54 03/13/20 20:41 Norepinephrine Bitartrate 4 mg/ Dextrose 250 ml @ 0 mls/hr Q24H PRN IV For hypotension 03/13/20 14:53 04/12/20 14:52 Potassium Chloride (K-Dur) 20 meq DAILY ORAL 03/14/20 09:00 06/11/20 08:59 Last 24 Hour Vital Signs Date Time Temp Pulse Resp B/P (MAP) Pulse Ox O2 Delivery O2 Flow Rate FiO2 03/14/20 06:00 70 25 98/52 (67) 90 03/14/20 05:00 72 30 95/57 (70) 87 03/14/20 04:00 98.3 75 19 116/62 (80) 95 03/14/20 04:00 69 03/14/20 04:00 Non-Rebreather 15.0 03/14/20 03:00 72 24 118/54 (75) 89 03/14/20 02:00 70 26 105/48 (67) 88 03/14/20 01:00 74 20 108/56 (73) 86 03/14/20 00:00 Non-Rebreather 15.0 03/14/20 00:00 67 03/14/20 00:00 Non-Rebreather 15.0 03/14/20 00:00 98.0 71 23 107/56 (73) 92 03/13/20 23:00 70 21 104/53 (70) 96 03/13/20 22:00 67 20 114/57 (76) 92 03/13/20 21:51 98.3 03/13/20 21:00 66 22 106/54 (71) 88 03/13/20 20:00 Non-Rebreather 15.0 03/13/20 20:00 68 03/13/20 20:00 98.0 71 22 96/61 (73) 92 03/13/20 19:00 70 17 116/60 (78) 97 03/13/20 18:00 70 23 100/58 (72) 97 03/13/20 17:00 72 17 101/52 (68) 91 03/13/20 16:00 71 16 101/53 (69) 96 03/13/20 16:00 97.9 03/13/20 16:00 Non-Rebreather 15.0 03/13/20 16:00 74 03/13/20 15:00 70 21 124/59 (80) 92 03/13/20 14:00 76 24 105/53 (70) 88 03/13/20 13:00 75 17 113/57 (75) 87 03/13/20 12:00 97.8 74 26 102/49 (66) 84 03/13/20 12:00 Non-Rebreather 15.0 03/13/20 12:00 76 03/13/20 11:00 75 20 89/34 (52) 81 03/13/20 10:43 Non-Rebreather 15.0 Non-Rebreather 15.0 03/13/20 10:37 74 03/13/20 10:30 97.3 74 18 114/55 (74) 86 03/13/20 08:00 96.7 73 18 114/60 (78) 91 03/13/20 04:00 97.3 20 122/68 (86) 92 03/13/20 04:00 70 03/13/20 00:00 71 03/13/20 00:00 97.5 20 137/76 (96) 92 03/12/20 21:00 Non-Rebreather 15.0 Non-Rebreather 15.0 03/12/20 20:00 69 03/12/20 20:00 97.7 19 115/60 (78) 94 03/12/20 16:00 71 03/12/20 16:00 97.5 74 20 116/69 (85) 90 03/12/20 12:00 97.1 72 20 116/62 (80) 90 03/12/20 12:00 70 03/12/20 09:00 Non-Rebreather 15.0 Non-Rebreather 15.0 03/12/20 08:00 67 03/12/20 07:00 97.5 72 20 123/64 (83) 89 Intake and Output 03/13/20 03/14/20 19:00 07:00 Intake Total 250 ml 540 ml Output Total 700 ml 1450 ml Balance -450 ml -910 ml Intake Oral 120 ml 100 ml IV Total 130 ml 440 ml Output Urine Total 700 ml 1450 ml # Voids 2 # Bowel Movements 8 2 Labs Test 03/12/20 06:28 03/13/20 06:17 03/13/20 09:16 03/14/20 00:28 White Blood Count 4.4 K/UL (4.8-10.8) 4.8 K/UL (4.8-10.8) Red Blood Count 3.22 M/UL (4.20-5.40) 3.22 M/UL (4.20-5.40) Hemoglobin 10.6 G/DL (12.0-16.0) 10.6 G/DL (12.0-16.0) Hematocrit 32.6 % (37.0-47.0) 32.3 % (37.0-47.0) Mean Corpuscular Volume 101 FL (80-99) 100 FL (80-99) Mean Corpuscular Hemoglobin 33.0 PG (27.0-31.0) 33.0 PG (27.0-31.0) Mean Corpuscular Hemoglobin Concent 32.7 G/DL (32.0-36.0) 32.9 G/DL (32.0-36.0) Red Cell Distribution Width 17.0 % (11.6-14.8) 16.3 % (11.6-14.8) Platelet Count 149 K/UL (150-450) 156 K/UL (150-450) Mean Platelet Volume 5.2 FL (6.5-10.1) 5.3 FL (6.5-10.1) Neutrophils (%) (Auto) 72.7 % (45.0-75.0) 76.5 % (45.0-75.0) Lymphocytes (%) (Auto) 15.9 % (20.0-45.0) 17.0 % (20.0-45.0) Monocytes (%) (Auto) 6.2 % (1.0-10.0) 4.0 % (1.0-10.0) Eosinophils (%) (Auto) 4.8 % (0.0-3.0) 2.3 % (0.0-3.0) Basophils (%) (Auto) 0.4 % (0.0-2.0) 0.2 % (0.0-2.0) Sodium Level 139 MMOL/L (136-145) 138 MMOL/L (136-145) Potassium Level 3.0 MMOL/L (3.5-5.1) 3.0 MMOL/L (3.5-5.1) Chloride Level 99 MMOL/L (98-107) 97 MMOL/L (98-107) Carbon Dioxide Level 37 MMOL/L (21-32) 36 MMOL/L (21-32) Anion Gap 3 mmol/L (5-15) 5 mmol/L (5-15) Blood Urea Nitrogen 6 mg/dL (7-18) 7 mg/dL (7-18) Creatinine 0.6 MG/DL (0.55-1.30) 0.6 MG/DL (0.55-1.30) Estimat Glomerular Filtration Rate > 60 mL/min (>60) > 60 mL/min (>60) Glucose Level 66 MG/DL (74-106) 67 MG/DL (74-106) Calcium Level 8.2 MG/DL (8.5-10.1) 8.1 MG/DL (8.5-10.1) Arterial Blood pH 7.502 (7.350-7.450) 7.495 (7.350-7.450) Arterial Blood Partial Pressure CO2 46.3 mmHg (35.0-45.0) 50.3 mmHg (35.0-45.0) Arterial Blood Partial Pressure O2 58.3 mmHg (75.0-100.0) 52.1 mmHg (75.0-100.0) Arterial Blood HCO3 33.5 mmol/L (22.0-26.0) 37.9 mmol/L (22.0-26.0) Arterial Blood Oxygen Saturation 90.1 % (95-100) 86.3 % (95-100) Arterial Blood Base Excess 11 (-2-2) 13.0 (-2-2) Joaquin Test Positive Positive Test 03/14/20 03:30 Height (Feet): 5 Height (Inches): 1.00 Weight (Pounds): 238 Objective Physical Exam: Vitals: reviewed General: NAD HEENT: nc, at Neck: supple Chest: clear breath sounds bilaterally Cardiovascular: RRR, no s3, s4 EXT ++ Significant edema and erythema bilateral lower extremity, patient also has blistering on both feet given the edema, whittish overcrust/crusting++ Neurologic: alert, oriented x3 Skin: other - As above Brett Mcclain MD Mar 14, 2020 06:55
[2020-03-14 07:31] LABS: BILIRUBIN,DIRECT 0.5 MG/DL (0.0-0.3); POTASSIUM 2.6 MMOL/L (3.5-5.1)
[2020-03-14] MEDS: Morphine Sulfate 2mg/ml Inj(IV/IM USE ONLY) IVP PRN ×3 (07:41→21:42)
[2020-03-14] MEDS: Cefepime HCl 1 GM in D5W 55 ML IVPB SCH ×2 (08:56→20:12)
[2020-03-14] MEDS: Azithromycin 250mg tab ORAL SCH (08:57)
[2020-03-14] MEDS: Enoxaparin 40mg Inj SUBQ SCH (08:59)
[2020-03-14 10:44] LABS: ALANINE AMINOTRANSFERASE 17 U/L (12-78); ALBUMIN 1.7 G/DL (3.4-5.0); ALKALINE PHOSPHATASE 94 U/L (46-116); ASPARTATE AMINO TRANSFERASE 69 U/L (15-37); BILIRUBIN,DIRECT 0.5 MG/DL (0.0-0.3); BILIRUBIN,TOTAL 1.3 MG/DL (0.2-1.0); FERRITIN 835 NG/ML (8-388); LACTATE DEHYDROGENASE 415 U/L (81-234)
--- NOTE | 2020-03-14 10:49 | Infectious Diseases Prog Note ---
Assessment/Plan Assessment/Plan IMPRESSION: 1. Bilateral leg cellulitis,Pseudomonas in culture 2. Anemia. 3. Hypoxemia 4. Thrombocytopenia. 5. Homeless 6. Morbid obesity. 7. Cirrhosis 8. COVID19 pneumonia RECOMMENDATION: Will f/u COVID19 test Continue Plaquenil until tonight Continue Cefepime & Zithromax Negative VQ scan Subjective ROS Limited/Unobtainable: Yes Constitutional: Denies: fever Respiratory: Reports: dry cough Allergies: Coded Allergies: No Known Allergies (Unverified , 02/29/20) Objective Vital Signs Last 24 Hour Vital Signs Date Time Temp Pulse Resp B/P (MAP) Pulse Ox O2 Delivery O2 Flow Rate FiO2 03/14/20 07:00 74 25 103/51 (68) 89 03/14/20 06:00 70 25 98/52 (67) 90 03/14/20 05:00 72 30 95/57 (70) 87 03/14/20 04:00 98.3 75 19 116/62 (80) 95 03/14/20 04:00 69 03/14/20 04:00 Non-Rebreather 15.0 03/14/20 03:00 72 24 118/54 (75) 89 03/14/20 02:00 70 26 105/48 (67) 88 03/14/20 01:00 74 20 108/56 (73) 86 03/14/20 00:00 Non-Rebreather 15.0 03/14/20 00:00 67 03/14/20 00:00 Non-Rebreather 15.0 03/14/20 00:00 98.0 71 23 107/56 (73) 92 03/13/20 23:00 70 21 104/53 (70) 96 03/13/20 22:00 67 20 114/57 (76) 92 03/13/20 21:51 98.3 03/13/20 21:00 66 22 106/54 (71) 88 03/13/20 20:00 Non-Rebreather 15.0 03/13/20 20:00 68 03/13/20 20:00 98.0 71 22 96/61 (73) 92 03/13/20 19:00 70 17 116/60 (78) 97 03/13/20 18:00 70 23 100/58 (72) 97 03/13/20 17:00 72 17 101/52 (68) 91 03/13/20 16:00 71 16 101/53 (69) 96 03/13/20 16:00 97.9 03/13/20 16:00 Non-Rebreather 15.0 03/13/20 16:00 74 03/13/20 15:00 70 21 124/59 (80) 92 03/13/20 14:00 76 24 105/53 (70) 88 03/13/20 13:00 75 17 113/57 (75) 87 03/13/20 12:00 97.8 74 26 102/49 (66) 84 03/13/20 12:00 Non-Rebreather 15.0 03/13/20 12:00 76 03/13/20 11:00 75 20 89/34 (52) 81 Height (Feet): 5 Height (Inches): 1.00 Weight (Pounds): 238 General Appearance: other - obese HEENT: mucous membranes moist Respiratory/Chest: other - oxygen by rebreathing mask Cardiovascular: normal rate, other - PICC line Abdomen: soft, non tender Extremities: other - legs edema Skin: ulcers, other - feet Neurologic/Psychiatric: alert, responsive Laboratory Tests Test 03/14/20 00:28 03/14/20 03:30 03/14/20 07:58 03/14/20 09:15 Arterial Blood pH 7.495 (7.350-7.450) 7.499 (7.350-7.450) Arterial Blood Partial Pressure CO2 50.3 mmHg (35.0-45.0) H 50.2 mmHg (35.0-45.0) H Arterial Blood Partial Pressure O2 52.1 mmHg (75.0-100.0) L 51.1 mmHg (75.0-100.0) L Arterial Blood HCO3 37.9 mmol/L (22.0-26.0) H 38.2 mmol/L (22.0-26.0) H Arterial Blood Oxygen Saturation 86.3 % (95-100) *L 86.9 % (95-100) *L Arterial Blood Base Excess 13.0 (-2-2) *H 12.9 (-2-2) *H Joaquin Test Positive Positive White Blood Count 4.5 K/UL (4.8-10.8) L Red Blood Count 2.92 M/UL (4.20-5.40) L Hemoglobin 9.6 G/DL (12.0-16.0) L Hematocrit 29.3 % (37.0-47.0) L Mean Corpuscular Volume 100 FL (80-99) H Mean Corpuscular Hemoglobin 32.7 PG (27.0-31.0) H Mean Corpuscular Hemoglobin Concent 32.6 G/DL (32.0-36.0) Red Cell Distribution Width 16.7 % (11.6-14.8) H Platelet Count 118 K/UL (150-450) L Mean Platelet Volume 5.9 FL (6.5-10.1) L Neutrophils (%) (Auto) 74.4 % (45.0-75.0) Lymphocytes (%) (Auto) 12.2 % (20.0-45.0) L Monocytes (%) (Auto) 8.5 % (1.0-10.0) Eosinophils (%) (Auto) 4.1 % (0.0-3.0) H Basophils (%) (Auto) 0.7 % (0.0-2.0) Sodium Level 139 MMOL/L (136-145) Potassium Level 2.6 MMOL/L (3.5-5.1) *L Chloride Level 98 MMOL/L (98-107) Carbon Dioxide Level 39 MMOL/L (21-32) H Anion Gap 3 mmol/L (5-15) L Blood Urea Nitrogen 6 mg/dL (7-18) L Creatinine 0.6 MG/DL (0.55-1.30) Estimat Glomerular Filtration Rate > 60 mL/min (>60) Glucose Level 92 MG/DL (74-106) Calcium Level 7.6 MG/DL (8.5-10.1) L Total Bilirubin 1.4 MG/DL (0.2-1.0) H 1.3 MG/DL (0.2-1.0) H Direct Bilirubin 0.5 MG/DL (0.0-0.3) H 0.5 MG/DL (0.0-0.3) H Aspartate Amino Transf (AST/SGOT) 71 U/L (15-37) H 69 U/L (15-37) H Alanine Aminotransferase (ALT/SGPT) 19 U/L (12-78) 17 U/L (12-78) Alkaline Phosphatase 97 U/L (46-116) 94 U/L (46-116) Total Protein 7.9 G/DL (6.4-8.2) 7.7 G/DL (6.4-8.2) Albumin 1.8 G/DL (3.4-5.0) L 1.7 G/DL (3.4-5.0) L Globulin 6.1 g/dL Albumin/Globulin Ratio 0.3 (1.0-2.7) L D-Dimer 8.06 mg/L FEU (0.00-0.49) H Magnesium Level 1.4 MG/DL (1.8-2.4) L Ferritin 835 NG/ML (8-388) H Lactate Dehydrogenase 415 U/L (81-234) H Troponin I Pending C-Reactive Protein, Quantitative 16.2 mg/dL (0.00-0.90) H Pro-B-Type Natriuretic Peptide 624 pg/mL (0-125) H Interleukin 6 (IL-6) Pending Current Medications Medications (Trade) Dose Ordered Sig/Dolroes Route PRN Reason Start Time Stop Time Status Last Admin Dose Admin Acetaminophen (Tylenol) 650 mg Q4H PRN ORAL Mild Pain (Pain Scale 1-3) 03/13/20 14:53 04/12/20 14:52 03/14/20 08:58 Acetaminophen (Tylenol) 650 mg Q4H PRN ORAL Temp >100 03/13/20 14:53 04/12/20 14:52 Albuterol Sulfate (Proventil MDI) 2 puff Q6HRT INH 03/13/20 19:00 06/05/20 12:59 03/14/20 06:19 Azithromycin (Zithromax) 500 mg DAILY ORAL 03/14/20 09:00 03/20/20 10:59 03/14/20 08:57 Cefepime HCl 1 gm/ Dextrose 55 ml @ 110 mls/hr EVERY 12 HOURS IVPB 03/13/20 21:00 03/20/20 10:59 03/14/20 08:56 Chlorhexidine Gluconate (Lucretia-Hex 2%) 1 applic DAILY@2000 TOPIC 03/13/20 20:00 06/11/20 19:59 03/13/20 19:41 Dextrose/Sodium Chloride 1,000 ml @ 40 mls/hr Q24H IV 03/13/20 14:55 04/12/20 14:54 03/13/20 15:46 Diphenhydramine HCl (Benadryl) 25 mg Q4H PRN ORAL moderate itching 03/13/20 14:54 04/12/20 14:53 Diphenhydramine HCl (Benadryl) 50 mg Q4H PRN ORAL SEVERE ITCHING 03/13/20 14:53 04/12/20 14:52 Enoxaparin Sodium (Lovenox) 40 mg DAILY SUBQ 03/14/20 09:00 06/10/20 08:59 Furosemide (Lasix) 40 mg BID IV 03/13/20 18:00 04/06/20 10:29 03/14/20 08:58 Mirtazapine (Remeron) 7.5 mg BEDTIME PRN ORAL SLEEP 03/13/20 14:55 06/11/20 14:54 Morphine Sulfate (Morphine Sulfate) 1 mg Q4H PRN IVP For Pain 03/13/20 14:55 03/20/20 14:54 03/14/20 07:41 Norepinephrine Bitartrate 4 mg/ Dextrose 250 ml @ 0 mls/hr Q24H PRN IV For hypotension 03/13/20 14:53 04/12/20 14:52 Potassium Chloride 100 ml @ 50 mls/hr Q2H IVPB 03/14/20 09:15 03/14/20 13:14 Potassium Chloride (K-Dur) 20 meq BID ORAL 03/14/20 09:00 06/11/20 08:59 03/14/20 08:57 Jonathon Shah MD Mar 14, 2020 10:49
[2020-03-14] MEDS: D5 1/2NS 1,000 ML IV SCH ×2 (14:12→20:13)
--- NOTE | 2020-03-14 14:33 | Surgery Progress Note ---
Surgery Progress Note Subjective Additional Comments on levo labs noted exam stable no acute events edema improved Objective Last 24 Hour Vital Signs Date Time Temp Pulse Resp B/P (MAP) Pulse Ox O2 Delivery O2 Flow Rate FiO2 03/14/20 13:03 92 Non-Rebreather 15.0 100 03/14/20 11:54 84/44 03/14/20 11:00 71 21 75/41 (52) 89 03/14/20 10:00 77 24 104/61 (75) 84 03/14/20 09:00 70 25 92/48 (63) 91 03/14/20 08:00 Non-Rebreather 15.0 03/14/20 08:00 98.5 74 26 112/44 (66) 96 03/14/20 07:00 74 25 103/51 (68) 89 03/14/20 06:00 70 25 98/52 (67) 90 03/14/20 05:00 72 30 95/57 (70) 87 03/14/20 04:00 98.3 75 19 116/62 (80) 95 03/14/20 04:00 69 03/14/20 04:00 Non-Rebreather 15.0 03/14/20 03:00 72 24 118/54 (75) 89 03/14/20 02:00 70 26 105/48 (67) 88 03/14/20 01:00 74 20 108/56 (73) 86 03/14/20 00:00 Non-Rebreather 15.0 03/14/20 00:00 67 03/14/20 00:00 Non-Rebreather 15.0 03/14/20 00:00 98.0 71 23 107/56 (73) 92 03/13/20 23:00 70 21 104/53 (70) 96 03/13/20 22:00 67 20 114/57 (76) 92 03/13/20 21:51 98.3 03/13/20 21:00 66 22 106/54 (71) 88 03/13/20 20:00 Non-Rebreather 15.0 03/13/20 20:00 68 03/13/20 20:00 98.0 71 22 96/61 (73) 92 03/13/20 19:00 70 17 116/60 (78) 97 03/13/20 18:00 70 23 100/58 (72) 97 03/13/20 17:00 72 17 101/52 (68) 91 03/13/20 16:00 71 16 101/53 (69) 96 03/13/20 16:00 97.9 03/13/20 16:00 Non-Rebreather 15.0 03/13/20 16:00 74 03/13/20 15:00 70 21 124/59 (80) 92 I&O Intake and Output 03/13/20 03/14/20 19:00 07:00 Intake Total 250 ml 580 ml Output Total 700 ml 1450 ml Balance -450 ml -870 ml Intake Oral 120 ml 100 ml IV Total 130 ml 480 ml Output Urine Total 700 ml 1450 ml # Voids 2 # Bowel Movements 8 2 Dressing: other Wound: other Drains: other Cardiovascular: RSR Respiratory: decreased breath sounds Abdomen: soft, non-tender, present bowel sounds Extremities: no cyanosis Laboratory Tests Test 03/14/20 00:28 03/14/20 03:30 03/14/20 07:58 03/14/20 09:15 Arterial Blood pH 7.495 (7.350-7.450) 7.499 (7.350-7.450) Arterial Blood Partial Pressure CO2 50.3 mmHg (35.0-45.0) H 50.2 mmHg (35.0-45.0) H Arterial Blood Partial Pressure O2 52.1 mmHg (75.0-100.0) L 51.1 mmHg (75.0-100.0) L Arterial Blood HCO3 37.9 mmol/L (22.0-26.0) H 38.2 mmol/L (22.0-26.0) H Arterial Blood Oxygen Saturation 86.3 % (95-100) *L 86.9 % (95-100) *L Arterial Blood Base Excess 13.0 (-2-2) *H 12.9 (-2-2) *H Joaquin Test Positive Positive White Blood Count 4.5 K/UL (4.8-10.8) L Red Blood Count 2.92 M/UL (4.20-5.40) L Hemoglobin 9.6 G/DL (12.0-16.0) L Hematocrit 29.3 % (37.0-47.0) L Mean Corpuscular Volume 100 FL (80-99) H Mean Corpuscular Hemoglobin 32.7 PG (27.0-31.0) H Mean Corpuscular Hemoglobin Concent 32.6 G/DL (32.0-36.0) Red Cell Distribution Width 16.7 % (11.6-14.8) H Platelet Count 118 K/UL (150-450) L Mean Platelet Volume 5.9 FL (6.5-10.1) L Neutrophils (%) (Auto) 74.4 % (45.0-75.0) Lymphocytes (%) (Auto) 12.2 % (20.0-45.0) L Monocytes (%) (Auto) 8.5 % (1.0-10.0) Eosinophils (%) (Auto) 4.1 % (0.0-3.0) H Basophils (%) (Auto) 0.7 % (0.0-2.0) Sodium Level 139 MMOL/L (136-145) Potassium Level 2.6 MMOL/L (3.5-5.1) *L Chloride Level 98 MMOL/L (98-107) Carbon Dioxide Level 39 MMOL/L (21-32) H Anion Gap 3 mmol/L (5-15) L Blood Urea Nitrogen 6 mg/dL (7-18) L Creatinine 0.6 MG/DL (0.55-1.30) Estimat Glomerular Filtration Rate > 60 mL/min (>60) Glucose Level 92 MG/DL (74-106) Calcium Level 7.6 MG/DL (8.5-10.1) L Total Bilirubin 1.4 MG/DL (0.2-1.0) H 1.3 MG/DL (0.2-1.0) H Direct Bilirubin 0.5 MG/DL (0.0-0.3) H 0.5 MG/DL (0.0-0.3) H Aspartate Amino Transf (AST/SGOT) 71 U/L (15-37) H 69 U/L (15-37) H Alanine Aminotransferase (ALT/SGPT) 19 U/L (12-78) 17 U/L (12-78) Alkaline Phosphatase 97 U/L (46-116) 94 U/L (46-116) Total Protein 7.9 G/DL (6.4-8.2) 7.7 G/DL (6.4-8.2) Albumin 1.8 G/DL (3.4-5.0) L 1.7 G/DL (3.4-5.0) L Globulin 6.1 g/dL Albumin/Globulin Ratio 0.3 (1.0-2.7) L D-Dimer 8.06 mg/L FEU (0.00-0.49) H Magnesium Level 1.4 MG/DL (1.8-2.4) L Ferritin 835 NG/ML (8-388) H Lactate Dehydrogenase 415 U/L (81-234) H Troponin I 0.009 ng/mL (0.000-0.056) C-Reactive Protein, Quantitative 16.2 mg/dL (0.00-0.90) H Pro-B-Type Natriuretic Peptide 624 pg/mL (0-125) H Interleukin 6 (IL-6) Pending Plan Problems: (1) Cellulitis Assessment & Plan: bilateral lower extremity cellulitis / edema chronic venous status changes dermatitis no abscess no purulent drainage ulcerations forming. keep lower extremity elevated while in bed apply skin protectant / moisturizing cream daily okay to shower okay to wrap soft after cream abx as per ID for cellulitis okay for diet duplex ordered trend labs will follow with recs thank you No evidence of deep venous thrombosis involving the visualized veins of the RIGHT lower extremity. refused eval of left COVID ++ cxr noted cont current supportive care improving labs stable Theron Sotomayor Mar 14, 2020 14:33
[2020-03-14] MEDS: Dyna-Hex 2% Top Sol 2oz TOPIC SCH (20:12)
--- NOTE | 2020-03-14 20:30 | General Progress Note ---
Assessment/Plan Problem List: (1) Cellulitis ICD Codes: L03.90 - Cellulitis, unspecified SNOMED: [id number] Qualifiers: Qualified Codes: L03.119 - Cellulitis of unspecified part of limb Status: progressing, unchanged Assessment/Plan: afebrile no wheezing check h/h check lytes coivd positive resps insuff pna sepsis anemia cirrhosis obese Subjective ROS Limited/Unobtainable: Yes Allergies: Coded Allergies: No Known Allergies (Unverified , 02/29/20) Objective Last 24 Hour Vital Signs Date Time Temp Pulse Resp B/P (MAP) Pulse Ox O2 Delivery O2 Flow Rate FiO2 03/14/20 19:00 122/53 03/14/20 19:00 65 26 114/51 (72) 90 03/14/20 18:00 72 19 130/61 (84) 91 03/14/20 18:00 116/64 03/14/20 17:30 67 20 127/61 (83) 99 03/14/20 17:00 69 19 134/80 (98) 97 03/14/20 17:00 114/57 03/14/20 16:30 69 19 109/72 (84) 97 03/14/20 16:00 Non-Rebreather 15.0 03/14/20 16:00 64 19 97/50 (66) 92 03/14/20 16:00 98.6 03/14/20 16:00 95/53 03/14/20 16:00 66 03/14/20 15:00 65 19 95/54 (68) 90 03/14/20 15:00 107/56 03/14/20 14:45 63 25 105/47 (66) 88 03/14/20 14:30 70 23 100/49 (66) 88 03/14/20 14:15 68 21 99/46 (63) 88 03/14/20 14:00 73 17 128/63 (84) 86 03/14/20 14:00 99/46 03/14/20 13:45 128/62 03/14/20 13:45 62 22 120/60 (80) 91 03/14/20 13:30 120/60 03/14/20 13:30 62 23 109/56 (73) 91 03/14/20 13:15 106/55 03/14/20 13:15 69 20 106/55 (72) 94 03/14/20 13:03 92 Non-Rebreather 15.0 100 03/14/20 13:00 64 24 129/65 (86) 94 03/14/20 13:00 106/55 03/14/20 12:51 65 21 119/64 (82) 96 03/14/20 12:45 75/51 03/14/20 12:42 63 22 106/46 (66) 94 03/14/20 12:30 89/59 03/14/20 12:30 62 21 89/59 (69) 93 03/14/20 12:15 93/44 03/14/20 12:00 Non-Rebreather 15.0 03/14/20 12:00 98.6 70 21 82/35 (51) 93 03/14/20 12:00 69 03/14/20 11:54 84/44 03/14/20 11:00 71 21 75/41 (52) 89 03/14/20 10:00 77 24 104/61 (75) 84 03/14/20 09:00 70 25 92/48 (63) 91 03/14/20 08:00 Non-Rebreather 15.0 03/14/20 08:00 98.5 74 26 112/44 (66) 96 03/14/20 08:00 74 03/14/20 07:00 74 25 103/51 (68) 89 03/14/20 06:00 70 25 98/52 (67) 90 03/14/20 05:00 72 30 95/57 (70) 87 03/14/20 04:00 98.3 75 19 116/62 (80) 95 03/14/20 04:00 69 03/14/20 04:00 Non-Rebreather 15.0 03/14/20 03:00 72 24 118/54 (75) 89 03/14/20 02:00 70 26 105/48 (67) 88 03/14/20 01:00 74 20 108/56 (73) 86 03/14/20 00:00 Non-Rebreather 15.0 03/14/20 00:00 67 03/14/20 00:00 Non-Rebreather 15.0 03/14/20 00:00 98.0 71 23 107/56 (73) 92 03/13/20 23:00 70 21 104/53 (70) 96 03/13/20 22:00 67 20 114/57 (76) 92 03/13/20 21:51 98.3 03/13/20 21:00 66 22 106/54 (71) 88 Intake and Output 03/13/20 03/14/20 19:00 07:00 Intake Total 250 ml 580 ml Output Total 700 ml 1525 ml Balance -450 ml -945 ml Intake Oral 120 ml 100 ml IV Total 130 ml 480 ml Output Urine Total 700 ml 1525 ml # Voids 2 # Bowel Movements 8 2 Laboratory Tests 03/14/20 00:28: Arterial Blood pH 7.495H, Arterial Blood Partial Pressure CO2 50.3H, Arterial Blood Partial Pressure O2 52.1L, Arterial Blood HCO3 37.9H, Arterial Blood Oxygen Saturation 86.3*L, Arterial Blood Base Excess 13.0*H, Joaquin Test Positive 03/14/20 03:30: White Blood Count 4.5L, Red Blood Count 2.92L, Hemoglobin 9.6L, Hematocrit 29.3L , Mean Corpuscular Volume 100H, Mean Corpuscular Hemoglobin 32.7H, Mean Corpuscular Hemoglobin Concent 32.6, Red Cell Distribution Width 16.7H, Platelet Count 118L, Mean Platelet Volume 5.9L, Neutrophils (%) (Auto) 74.4, Lymphocytes (%) (Auto) 12.2L, Monocytes (%) (Auto) 8.5, Eosinophils (%) (Auto) 4.1H, Basophils (%) (Auto) 0.7, Sodium Level 139, Potassium Level 2.6*L, Chloride Level 98, Carbon Dioxide Level 39H, Anion Gap 3L, Blood Urea Nitrogen 6L, Creatinine 0.6, Estimat Glomerular Filtration Rate > 60, Glucose Level 92, Calcium Level 7.6L, Total Bilirubin 1.4H, Direct Bilirubin 0.5H, Aspartate Amino Transf (AST/SGOT) 71H, Alanine Aminotransferase (ALT/SGPT) 19, Alkaline Phosphatase 97, Total Protein 7.9, Albumin 1.8L, Globulin 6.1, Albumin/Globulin Ratio 0.3L 03/14/20 07:58: Arterial Blood pH 7.499H, Arterial Blood Partial Pressure CO2 50.2H, Arterial Blood Partial Pressure O2 51.1L, Arterial Blood HCO3 38.2H, Arterial Blood Oxygen Saturation 86.9*L, Arterial Blood Base Excess 12.9*H, Joaquin Test Positive 03/14/20 09:15: Total Bilirubin 1.3H, Direct Bilirubin 0.5H, Aspartate Amino Transf (AST/SGOT) 69H, Alanine Aminotransferase (ALT/SGPT) 17, Alkaline Phosphatase 94, Total Protein 7.7, Albumin 1.7L, D-Dimer 8.06H, Magnesium Level 1.4L, Ferritin 835H, Lactate Dehydrogenase 415H, Troponin I 0.009, C-Reactive Protein, Quantitative 16.2H, Pro-B-Type Natriuretic Peptide 624H, Interleukin 6 (IL-6) [Pending] Height (Feet): 5 Height (Inches): 1.00 Weight (Pounds): 238 Celso Moreno MD Mar 14, 2020 20:30
--- NOTE | 2020-03-14 21:40 | Pulmonolgy Critical Care Note ---
Critical Care - Asmt/Plan Assessment/Plan: Pulmonary CCM Progress Note HPI Patient is a 59 year old woman with significant obesity, admitted with bilateral lower extremity cellulitis, had complained of increased swelling and redness to both of her feet and legs Had elevated BNP on admission, persistent edema since admission, worsening hypoxia, LE DVT (right) negative for DVT. 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 COVID 19 positive, Pneumonia VQ no significant perfusion abnormality Prev LE dupplex negative High D Dimer level Despite being diuresed, worsening infiltrates on CXR, worsening hypoxia High oxygen requirements - on NRB, now in ICU, NPO, PaO2 <60 Seen earlier Allergies: No Known Allergies Past Medical History: Obesity, Cirrhosis, Anemia, Anxiety, Cellulitis All Other Systems: negative except mentioned in HPI Physical Exam Vital Signs Noted General Appearance: Obese, no apparent distress Head: normocephalic, atraumatic Eyes: bilateral eye PERRL, bilateral eye EOMI ENT: EOM grossly intact, moist MM, no LN Respiratory: lungs clear, no respiratory distress, no retraction Cardiovascular: regular rate, rhythm, HS1, HS2 RRR Gastrointestinal: Obese, soft non tender, ND Musculoskeletal: Significant edema and erythema bilateral lower extremity, patient also has crusting on both feet, Neurologic: alert, oriented x3 Impression: Bilateral Lower Extremity Cellulitis Elevated NPA, severe bilateral edema Covid Pneumonia Worsening hypoxia, PaO2 less than 60 on 100%, elevated PCO2 of 48 Cirrhosis Splenomegaly Anemia Anxiety Plan IV Antibiotics per ID Surgery following for wounds Hematology following for anemia, observing for Neutropenia Diurese PRN Monitor labs Bronchodilators PPX - SCD, Lovenox Echocardiogram O2 PRN (cannot use BiPAP as COVID PNA) NPO as will need intubation if deterioration continues IV mainenance fluids Supplement electrolytes Albuterol PRN Labs Noted Chest X-Ray: Cardiomegaly, left lower lobe atelectasis versus effusion, worsening infiltrates/congestion Subjective ROS Limited/Unobtainable: No Constitutional: Reports: no symptoms Gastrointestinal/Abdominal: Reports: no symptoms Musculoskeletal: Reports: other - SOB Allergies: Coded Allergies: No Known Allergies (Unverified , 02/29/20) ICU time 50 minutes Critical Care - Objective Last 24 Hour Vital Signs Date Time Temp Pulse Resp B/P (MAP) Pulse Ox O2 Delivery O2 Flow Rate FiO2 03/14/20 20:40 98 Non-Rebreather 15.0 100 03/14/20 20:00 Non-Rebreather 15.0 03/14/20 19:00 122/53 03/14/20 19:00 65 26 114/51 (72) 90 03/14/20 18:00 72 19 130/61 (84) 91 03/14/20 18:00 116/64 03/14/20 17:30 67 20 127/61 (83) 99 03/14/20 17:00 69 19 134/80 (98) 97 03/14/20 17:00 114/57 03/14/20 16:30 69 19 109/72 (84) 97 03/14/20 16:00 Non-Rebreather 15.0 03/14/20 16:00 64 19 97/50 (66) 92 03/14/20 16:00 98.6 03/14/20 16:00 95/53 03/14/20 16:00 66 03/14/20 15:00 65 19 95/54 (68) 90 03/14/20 15:00 107/56 03/14/20 14:45 63 25 105/47 (66) 88 03/14/20 14:30 70 23 100/49 (66) 88 03/14/20 14:15 68 21 99/46 (63) 88 03/14/20 14:00 73 17 128/63 (84) 86 03/14/20 14:00 99/46 03/14/20 13:45 128/62 03/14/20 13:45 62 22 120/60 (80) 91 03/14/20 13:30 120/60 03/14/20 13:30 62 23 109/56 (73) 91 03/14/20 13:15 106/55 03/14/20 13:15 69 20 106/55 (72) 94 03/14/20 13:03 92 Non-Rebreather 15.0 100 03/14/20 13:00 64 24 129/65 (86) 94 03/14/20 13:00 106/55 03/14/20 12:51 65 21 119/64 (82) 96 03/14/20 12:45 75/51 03/14/20 12:42 63 22 106/46 (66) 94 03/14/20 12:30 89/59 03/14/20 12:30 62 21 89/59 (69) 93 03/14/20 12:15 93/44 03/14/20 12:00 Non-Rebreather 15.0 03/14/20 12:00 98.6 70 21 82/35 (51) 93 03/14/20 12:00 69 03/14/20 11:54 84/44 03/14/20 11:00 71 21 75/41 (52) 89 03/14/20 10:00 77 24 104/61 (75) 84 03/14/20 09:00 70 25 92/48 (63) 91 03/14/20 08:00 Non-Rebreather 15.0 03/14/20 08:00 98.5 74 26 112/44 (66) 96 03/14/20 08:00 74 03/14/20 07:00 74 25 103/51 (68) 89 03/14/20 06:00 70 25 98/52 (67) 90 03/14/20 05:00 72 30 95/57 (70) 87 03/14/20 04:00 98.3 75 19 116/62 (80) 95 03/14/20 04:00 69 03/14/20 04:00 Non-Rebreather 15.0 03/14/20 03:00 72 24 118/54 (75) 89 03/14/20 02:00 70 26 105/48 (67) 88 03/14/20 01:00 74 20 108/56 (73) 86 03/14/20 00:00 Non-Rebreather 15.0 03/14/20 00:00 67 03/14/20 00:00 Non-Rebreather 15.0 03/14/20 00:00 98.0 71 23 107/56 (73) 92 03/13/20 23:00 70 21 104/53 (70) 96 03/13/20 22:00 67 20 114/57 (76) 92 03/13/20 21:51 98.3 Critical Care - Subjective ROS Limited/Unobtainable: No FI02: 100 I&O: Intake and Output 03/13/20 03/14/20 19:00 07:00 Intake Total 250 ml 580 ml Output Total 700 ml 1525 ml Balance -450 ml -945 ml Intake Oral 120 ml 100 ml IV Total 130 ml 480 ml Output Urine Total 700 ml 1525 ml # Voids 2 # Bowel Movements 8 2 Doron Carrillo MD Mar 14, 2020 21:40
--- NOTE | 2020-03-14 21:46 | Cardiology Progress Note ---
Assessment/Plan Assessment/Plan 1. Noncardiac chest pain, acute myocardial function is ruled out by two negative troponin I levels, 12-lead electrocardiogram does not show any acute ischemic changes. Continue furosemide. 2. Bilateral lower extremity cellulitis with Pseudomonas aeruginosa in culture. 3. Pancytopenia, most likely due to hepatitis C virus infection/liver cirrhosis. 4. COVID-19 pneumonia. Subjective Subjective Sinus rhythm at rate of 65 Objective Last 24 Hour Vital Signs Date Time Temp Pulse Resp B/P (MAP) Pulse Ox O2 Delivery O2 Flow Rate FiO2 03/14/20 20:40 98 Non-Rebreather 15.0 100 03/14/20 20:00 Non-Rebreather 15.0 03/14/20 19:00 122/53 03/14/20 19:00 65 26 114/51 (72) 90 03/14/20 18:00 72 19 130/61 (84) 91 03/14/20 18:00 116/64 03/14/20 17:30 67 20 127/61 (83) 99 03/14/20 17:00 69 19 134/80 (98) 97 03/14/20 17:00 114/57 03/14/20 16:30 69 19 109/72 (84) 97 03/14/20 16:00 Non-Rebreather 15.0 03/14/20 16:00 64 19 97/50 (66) 92 03/14/20 16:00 98.6 03/14/20 16:00 95/53 03/14/20 16:00 66 03/14/20 15:00 65 19 95/54 (68) 90 03/14/20 15:00 107/56 03/14/20 14:45 63 25 105/47 (66) 88 03/14/20 14:30 70 23 100/49 (66) 88 03/14/20 14:15 68 21 99/46 (63) 88 03/14/20 14:00 73 17 128/63 (84) 86 03/14/20 14:00 99/46 03/14/20 13:45 128/62 03/14/20 13:45 62 22 120/60 (80) 91 03/14/20 13:30 120/60 03/14/20 13:30 62 23 109/56 (73) 91 03/14/20 13:15 106/55 03/14/20 13:15 69 20 106/55 (72) 94 03/14/20 13:03 92 Non-Rebreather 15.0 100 03/14/20 13:00 64 24 129/65 (86) 94 03/14/20 13:00 106/55 03/14/20 12:51 65 21 119/64 (82) 96 03/14/20 12:45 75/51 03/14/20 12:42 63 22 106/46 (66) 94 03/14/20 12:30 89/59 03/14/20 12:30 62 21 89/59 (69) 93 03/14/20 12:15 93/44 03/14/20 12:00 Non-Rebreather 15.0 03/14/20 12:00 98.6 70 21 82/35 (51) 93 03/14/20 12:00 69 03/14/20 11:54 84/44 03/14/20 11:00 71 21 75/41 (52) 89 03/14/20 10:00 77 24 104/61 (75) 84 03/14/20 09:00 70 25 92/48 (63) 91 03/14/20 08:00 Non-Rebreather 15.0 03/14/20 08:00 98.5 74 26 112/44 (66) 96 03/14/20 08:00 74 03/14/20 07:00 74 25 103/51 (68) 89 03/14/20 06:00 70 25 98/52 (67) 90 03/14/20 05:00 72 30 95/57 (70) 87 03/14/20 04:00 98.3 75 19 116/62 (80) 95 03/14/20 04:00 69 03/14/20 04:00 Non-Rebreather 15.0 03/14/20 03:00 72 24 118/54 (75) 89 03/14/20 02:00 70 26 105/48 (67) 88 03/14/20 01:00 74 20 108/56 (73) 86 03/14/20 00:00 Non-Rebreather 15.0 03/14/20 00:00 67 03/14/20 00:00 Non-Rebreather 15.0 03/14/20 00:00 98.0 71 23 107/56 (73) 92 03/13/20 23:00 70 21 104/53 (70) 96 03/13/20 22:00 67 20 114/57 (76) 92 03/13/20 21:51 98.3 Intake and Output 03/13/20 03/14/20 19:00 07:00 Intake Total 250 ml 580 ml Output Total 700 ml 1525 ml Balance -450 ml -945 ml Intake Oral 120 ml 100 ml IV Total 130 ml 480 ml Output Urine Total 700 ml 1525 ml # Voids 2 # Bowel Movements 8 2 Laboratory Tests Test 03/14/20 00:28 03/14/20 03:30 03/14/20 07:58 03/14/20 09:15 Arterial Blood pH 7.495 (7.350-7.450) 7.499 (7.350-7.450) Arterial Blood Partial Pressure CO2 50.3 mmHg (35.0-45.0) H 50.2 mmHg (35.0-45.0) H Arterial Blood Partial Pressure O2 52.1 mmHg (75.0-100.0) L 51.1 mmHg (75.0-100.0) L Arterial Blood HCO3 37.9 mmol/L (22.0-26.0) H 38.2 mmol/L (22.0-26.0) H Arterial Blood Oxygen Saturation 86.3 % (95-100) *L 86.9 % (95-100) *L Arterial Blood Base Excess 13.0 (-2-2) *H 12.9 (-2-2) *H Joaquin Test Positive Positive White Blood Count 4.5 K/UL (4.8-10.8) L Red Blood Count 2.92 M/UL (4.20-5.40) L Hemoglobin 9.6 G/DL (12.0-16.0) L Hematocrit 29.3 % (37.0-47.0) L Mean Corpuscular Volume 100 FL (80-99) H Mean Corpuscular Hemoglobin 32.7 PG (27.0-31.0) H Mean Corpuscular Hemoglobin Concent 32.6 G/DL (32.0-36.0) Red Cell Distribution Width 16.7 % (11.6-14.8) H Platelet Count 118 K/UL (150-450) L Mean Platelet Volume 5.9 FL (6.5-10.1) L Neutrophils (%) (Auto) 74.4 % (45.0-75.0) Lymphocytes (%) (Auto) 12.2 % (20.0-45.0) L Monocytes (%) (Auto) 8.5 % (1.0-10.0) Eosinophils (%) (Auto) 4.1 % (0.0-3.0) H Basophils (%) (Auto) 0.7 % (0.0-2.0) Sodium Level 139 MMOL/L (136-145) Potassium Level 2.6 MMOL/L (3.5-5.1) *L Chloride Level 98 MMOL/L (98-107) Carbon Dioxide Level 39 MMOL/L (21-32) H Anion Gap 3 mmol/L (5-15) L Blood Urea Nitrogen 6 mg/dL (7-18) L Creatinine 0.6 MG/DL (0.55-1.30) Estimat Glomerular Filtration Rate > 60 mL/min (>60) Glucose Level 92 MG/DL (74-106) Calcium Level 7.6 MG/DL (8.5-10.1) L Total Bilirubin 1.4 MG/DL (0.2-1.0) H 1.3 MG/DL (0.2-1.0) H Direct Bilirubin 0.5 MG/DL (0.0-0.3) H 0.5 MG/DL (0.0-0.3) H Aspartate Amino Transf (AST/SGOT) 71 U/L (15-37) H 69 U/L (15-37) H Alanine Aminotransferase (ALT/SGPT) 19 U/L (12-78) 17 U/L (12-78) Alkaline Phosphatase 97 U/L (46-116) 94 U/L (46-116) Total Protein 7.9 G/DL (6.4-8.2) 7.7 G/DL (6.4-8.2) Albumin 1.8 G/DL (3.4-5.0) L 1.7 G/DL (3.4-5.0) L Globulin 6.1 g/dL Albumin/Globulin Ratio 0.3 (1.0-2.7) L D-Dimer 8.06 mg/L FEU (0.00-0.49) H Magnesium Level 1.4 MG/DL (1.8-2.4) L Ferritin 835 NG/ML (8-388) H Lactate Dehydrogenase 415 U/L (81-234) H Troponin I 0.009 ng/mL (0.000-0.056) C-Reactive Protein, Quantitative 16.2 mg/dL (0.00-0.90) H Pro-B-Type Natriuretic Peptide 624 pg/mL (0-125) H Interleukin 6 (IL-6) Pending Objective HEENT: Atraumatic and normocephalic. Anicteric. Pupils are equal, round, and reactive to light and accommodation. Extraocular muscles intact. NECK: JVP cannot be assessed. No carotid bruit. Carotid upstroke is 2+ bilaterally. CARDIOVASCULAR: Normal S1, S2. Regular rate and rhythm. No murmurs, gallops, or rubs. PMI is at fourth intercostal space at left midclavicular line. LUNGS: Clear to auscultation bilaterally. ABDOMEN: Soft, nontender, and nondistended. No hepatosplenomegaly. Positive bowel sounds. EXTREMITIES: A 2+ edema bilaterally associated with erythema with blistering and crossing of both feet. Berto Gonzalez MD Mar 14, 2020 21:46
[2020-03-15] VITALS (71 sets, daily range): BP systolic 60–163; BP diastolic 31–79
--- NOTE | 2020-03-15 00:26 | Psych Consult Progress Note ---
Psychiatry Progress Note Psychiatry Progress Note Subjective the pt is in icu anxious. desat Medications Current Medications Medications (Trade) Dose Ordered Sig/Dolores Route PRN Reason Start Time Stop Time Status Last Admin Dose Admin Acetaminophen (Tylenol) 650 mg Q4H PRN ORAL Mild Pain (Pain Scale 1-3) 03/13/20 14:53 04/12/20 14:52 03/14/20 08:58 Acetaminophen (Tylenol) 650 mg Q4H PRN ORAL Temp >100 03/13/20 14:53 04/12/20 14:52 Albuterol Sulfate (Proventil MDI) 2 puff Q6HRT INH 03/13/20 19:00 06/05/20 12:59 03/14/20 17:19 Azithromycin (Zithromax) 500 mg DAILY ORAL 03/14/20 09:00 03/20/20 10:59 03/14/20 08:57 Cefepime HCl 1 gm/ Dextrose 55 ml @ 110 mls/hr EVERY 12 HOURS IVPB 03/13/20 21:00 03/20/20 10:59 03/14/20 20:12 Chlorhexidine Gluconate (Lucretia-Hex 2%) 1 applic DAILY@2000 TOPIC 03/13/20 20:00 06/11/20 19:59 03/14/20 20:12 Dextrose/Sodium Chloride 1,000 ml @ 50 mls/hr Q20H IV 03/15/20 01:00 04/14/20 00:59 Diphenhydramine HCl (Benadryl) 25 mg Q4H PRN ORAL moderate itching 03/13/20 14:54 04/12/20 14:53 Diphenhydramine HCl (Benadryl) 50 mg Q4H PRN ORAL SEVERE ITCHING 03/13/20 14:53 04/12/20 14:52 Enoxaparin Sodium (Lovenox) 40 mg DAILY SUBQ 03/14/20 09:00 06/10/20 08:59 Furosemide (Lasix) 20 mg BID IV 03/15/20 09:00 04/14/20 08:59 Mirtazapine (Remeron) 7.5 mg BEDTIME PRN ORAL SLEEP 03/13/20 14:55 06/11/20 14:54 Morphine Sulfate (Morphine Sulfate) 1 mg Q4H PRN IVP For Pain 03/13/20 14:55 03/20/20 14:54 03/14/20 21:42 Norepinephrine Bitartrate 4 mg/ Dextrose 250 ml @ 0 mls/hr Q24H PRN IV For hypotension 03/13/20 14:53 04/12/20 14:52 03/14/20 23:55 Potassium Chloride (K-Dur) 20 meq BID ORAL 03/14/20 09:00 06/11/20 08:59 03/14/20 17:19 Neurological/Psychiatric: Reports: anxiety Allergies: Coded Allergies: No Known Allergies (Unverified , 02/29/20) Objective Data Height (Feet): 5 Height (Inches): 1.00 Weight (Pounds): 238 General Appearance: no apparent distress, alert, alert oriented x3 Additional Comments: alert and oriented to times self, place, and situation. Mood is neutral. Affect is flat. Thought process is concrete. Thought content, no suicidal or homicidal ideation. Cognition is intact. Insight and judgment intact. Assessment/Plan Julian I: Anxiety disorder. Status: progressing, unchanged Assessment/Plan: ativan prn was dced provided ro/st remeron prn Justice Manriquez MD Mar 15, 2020 00:26
[2020-03-15] MEDS: D5 1/2NS 1,000 ML IV SCH ×2 (01:00→18:58)
[2020-03-15] MEDS: Albuterol 90mcg Inhaler 8gm INH SCH ×4 (01:00→18:30)
[2020-03-15] MEDS: Morphine Sulfate 2mg/ml Inj(IV/IM USE ONLY) IVP PRN ×3 (04:23→14:55)
[2020-03-15 05:54] LABS: BASOPHILS % (AUTO) 0.6 % (0.0-2.0); EOSINOPHILS % (AUTO) 3.7 % (0.0-3.0); HEMOGLOBIN 9.8 G/DL (12.0-16.0); LYMPHOCYTES % (AUTO) 11.6 % (20.0-45.0); MEAN CORPUSCULAR VOLUME 100 FL (80-99); MONOCYTES % (AUTO) 7.4 % (1.0-10.0); NEUTROPHILS % (AUTO) 76.7 % (45.0-75.0); PLATELET COUNT 105 K/UL (150-450); RED BLOOD COUNT 3.01 M/UL (4.20-5.40); RED CELL DISTRIBUTION WIDTH 16.5 % (11.6-14.8); WHITE BLOOD COUNT 6.6 K/UL (4.8-10.8)
[2020-03-15 06:13] LABS: ALANINE AMINOTRANSFERASE 19 U/L (12-78); ALBUMIN 1.7 G/DL (3.4-5.0); ALBUMIN/GLOBULIN RATIO 0.3 (1.0-2.7); ALKALINE PHOSPHATASE 98 U/L (46-116); ANION GAP -1 mmol/L (5-15); ASPARTATE AMINO TRANSFERASE 74 U/L (15-37); BILIRUBIN,TOTAL 1.5 MG/DL (0.2-1.0); BLOOD UREA NITROGEN 7 mg/dL (7-18); CALCIUM 7.2 MG/DL (8.5-10.1); CARBON DIOXIDE 39 MMOL/L (21-32); CHLORIDE 99 MMOL/L (98-107); CREATININE 0.7 MG/DL (0.55-1.30); POTASSIUM 3.6 MMOL/L (3.5-5.1); SODIUM 137 MMOL/L (136-145)
[2020-03-15 06:43] LABS: BILIRUBIN,DIRECT 0.4 MG/DL (0.0-0.3)
--- NOTE | 2020-03-15 07:40 | Hematology/Onc Progress Note ---
Assessment/Plan Assessment/Plan Assessment and Recs # Pancytopenia -- multiple etiologies could be related to underlying liver disease, medication-induced, infection versus viral syndrome versus underlying bone marrow cause, in this case, has severe liver disease and cirrhosis, HEP C++ , also cellulitis --> peripheral smear has been ordered and does not show significant abnormalities and none noted --> Medications have been reviewed --> Continue to monitor for improvement, trend cbc --> Hep panel and HIV are both negative --> US abd ordered to r/o cirrhosis and hepatosplenomegaly ->CIRRHOSIS IS NOTED , LARGE SPLEEN --> reverse isolation if ANC is <2000 --> Give neupogen if ANC <1000 --> Transfuse if hgb <7, with 1 unit prbc --> anemia panel ordered as well-->CW acd --> hgb trend 7-->7.1-->8.4-->8.2 -->8.7-->9.9 --> plt 145k-->152-->162k-->149k --> wbc 3.4-->3.5->3.9->4.4 --> abx: sameer/rifaximin # Cellulitis of the lower extremities --> continue abx as needed as per id --> Started on IV antibiotics-->azithro/cefepime --> as per surg recs, wound care # Ftt --> remains on mirtazapine # Elevated LFTS --> as per gi --> due to cirrhosis # Dvt ppx lovenox sq The timing of this note does not necessarily reflect the time of the patient was seen. Greatly appreciate consultation. Subjective HEENT: Denies: no symptoms, eye pain, blurred vision, tearing, double vision, ear pain, ear discharge, nose pain, nose congestion, throat pain, throat swelling, mouth pain, mouth swelling, other Cardiovascular: Denies: no symptoms, chest pain, edema, irregular heart rate, lightheadedness, palpitations, syncope, other Respiratory: Denies: no symptoms, cough, shortness of breath, SOB with excertion, SOB at rest, sputum, wheezing, other Gastrointestinal/Abdominal: Denies: no symptoms, abdomen distended, abdominal pain, black stools, tarry stools, blood in stool, constipated, diarrhea, difficulty swallowing, nausea, poor appetite, poor fluid intake, rectal bleeding , vomiting, other Genitourinary: Denies: no symptoms, burning, discharge, frequency, flank pain, hematuria, incontinence, pain, urgency, other Neurologic/Psychiatric: Denies: no symptoms, anxiety, depressed, emotional problems, headache, numbness, paresthesia, pre-existing deficit, seizure, tingling, tremors, weakness, other Endocrine: Denies: no symptoms, excessive sweating, flushing, intolerance to cold, intolerance to heat, increased hunger, increased thirst, increased urine, unexplained weight gain, unexplained weight loss, other Allergies: Coded Allergies: No Known Allergies (Unverified , 02/29/20) Subjective 03/02 no events, no bleeding, hgb 7.1, no hemolysis 03/03 s/p blood, hgb improved to 8.4, stool ob negtive, on abx 03/05 asleep, no acute distress, hgb 8.2 03/06 remains comfortable, on abx, plt remains low 03/07 is on nonrebreather, no night sweats, labs are noted 03/08 labs reviewed, being diuresed, seen by cards, psych, labs noted 03/09 lasix adjusted, wbc remains low at 3.9, reviewed meds, smear 03/10 no night sweats, no bleeding, labs noted, smear noted 03/12 labs noted, none completed, have reordered, cellulitis better 03/13 is continuing with chest pain, cards aware, no further studies until covid neg 03/14 labs noted, no bleeding, diuresis as needed, hgb stable 03/15 alseep is cooperative, no bleeding, meds noted Objective Objective Current Medications Medications (Trade) Dose Ordered Sig/Dolores Route PRN Reason Start Time Stop Time Status Last Admin Dose Admin Acetaminophen (Tylenol) 650 mg Q4H PRN ORAL Mild Pain (Pain Scale 1-3) 03/13/20 14:53 04/12/20 14:52 03/14/20 08:58 Acetaminophen (Tylenol) 650 mg Q4H PRN ORAL Temp >100 03/13/20 14:53 04/12/20 14:52 Albuterol Sulfate (Proventil MDI) 2 puff Q6HRT INH 03/13/20 19:00 06/05/20 12:59 03/15/20 05:50 Azithromycin (Zithromax) 500 mg DAILY ORAL 03/14/20 09:00 03/20/20 10:59 03/14/20 08:57 Cefepime HCl 1 gm/ Dextrose 55 ml @ 110 mls/hr EVERY 12 HOURS IVPB 03/13/20 21:00 03/20/20 10:59 03/14/20 20:12 Chlorhexidine Gluconate (Lucretia-Hex 2%) 1 applic DAILY@2000 TOPIC 03/13/20 20:00 06/11/20 19:59 03/14/20 20:12 Dextrose/Sodium Chloride 1,000 ml @ 50 mls/hr Q20H IV 03/15/20 01:00 04/14/20 00:59 03/15/20 01:00 Diphenhydramine HCl (Benadryl) 25 mg Q4H PRN ORAL moderate itching 03/13/20 14:54 04/12/20 14:53 Diphenhydramine HCl (Benadryl) 50 mg Q4H PRN ORAL SEVERE ITCHING 03/13/20 14:53 04/12/20 14:52 Enoxaparin Sodium (Lovenox) 40 mg DAILY SUBQ 03/14/20 09:00 06/10/20 08:59 Furosemide (Lasix) 20 mg BID IV 03/15/20 09:00 04/14/20 08:59 Mirtazapine (Remeron) 7.5 mg BEDTIME PRN ORAL SLEEP 03/13/20 14:55 06/11/20 14:54 Morphine Sulfate (Morphine Sulfate) 1 mg Q4H PRN IVP For Pain 03/13/20 14:55 03/20/20 14:54 03/15/20 04:23 Norepinephrine Bitartrate 4 mg/ Dextrose 250 ml @ 0 mls/hr Q24H PRN IV For hypotension 03/13/20 14:53 04/12/20 14:52 03/14/20 23:55 Potassium Chloride (K-Dur) 20 meq BID ORAL 03/14/20 09:00 06/11/20 08:59 03/14/20 17:19 Last 24 Hour Vital Signs Date Time Temp Pulse Resp B/P (MAP) Pulse Ox O2 Delivery O2 Flow Rate FiO2 03/15/20 07:00 70 96/41 (59) 91 03/15/20 07:00 109/51 03/15/20 06:45 72 107/50 (69) 92 03/15/20 06:30 72 99/45 (63) 90 03/15/20 06:00 67 109/40 (63) 90 03/15/20 06:00 109/40 03/15/20 05:45 73 111/56 (74) 93 03/15/20 05:30 75 18 111/56 (74) 89 03/15/20 05:15 69 27 102/55 (71) 90 03/15/20 05:03 97.9 03/15/20 05:00 70 23 99/51 (67) 90 03/15/20 05:00 102/55 03/15/20 04:45 72 17 108/55 (72) 95 03/15/20 04:30 70 18 104/54 (71) 97 03/15/20 04:15 71 17 113/54 (73) 100 03/15/20 04:00 98.3 72 15 116/57 (76) 97 03/15/20 04:00 69 03/15/20 04:00 116/57 03/15/20 04:00 Non-Rebreather 15.0 03/15/20 03:45 68 21 101/40 (60) 98 03/15/20 03:30 68 29 95/39 (57) 93 03/15/20 03:15 67 28 97/41 (59) 92 03/15/20 03:00 66 28 102/47 (65) 94 03/15/20 03:00 97/41 03/15/20 02:45 67 26 97/39 (58) 95 03/15/20 02:30 67 29 102/47 (65) 96 03/15/20 02:15 71 20 103/44 (63) 97 03/15/20 02:00 103/44 03/15/20 02:00 69 23 112/76 (88) 93 03/15/20 01:45 67 28 106/45 (65) 90 03/15/20 01:30 73 21 117/61 (79) 91 03/15/20 01:15 69 20 106/55 (72) 90 03/15/20 01:00 70 21 127/55 (79) 90 03/15/20 01:00 106/55 03/15/20 00:45 68 23 105/49 (67) 90 03/15/20 00:30 71 17 110/68 (82) 92 03/15/20 00:15 66 25 99/53 (68) 89 03/15/20 00:00 Non-Rebreather 15.0 03/15/20 00:00 70 03/15/20 00:00 97.9 73 18 95/47 (63) 90 03/14/20 23:55 73/46 03/14/20 23:45 71 27 83/45 (58) 89 03/14/20 23:00 73 21 108/60 (76) 90 03/14/20 22:00 99/60 03/14/20 21:45 71 27 99/56 (70) 94 03/14/20 21:30 70 24 99/59 (72) 96 03/14/20 21:19 77 19 96/64 (75) 84 03/14/20 21:15 74 19 88/55 (66) 97 03/14/20 21:00 74 23 96/35 (55) 98 03/14/20 21:00 88/55 03/14/20 20:45 74 18 97/54 (68) 98 03/14/20 20:40 98 Non-Rebreather 15.0 100 03/14/20 20:30 74 17 98/44 (62) 97 03/14/20 20:15 75 17 105/61 (76) 95 03/14/20 20:00 69 03/14/20 20:00 76 23 100/40 (60) 97 03/14/20 20:00 Non-Rebreather 15.0 03/14/20 20:00 105/61 03/14/20 19:45 64 25 112/63 (79) 96 03/14/20 19:30 62 22 101/62 (75) 92 03/14/20 19:00 122/53 03/14/20 19:00 65 26 114/51 (72) 90 03/14/20 18:00 72 19 130/61 (84) 91 03/14/20 18:00 116/64 03/14/20 17:30 67 20 127/61 (83) 99 03/14/20 17:00 69 19 134/80 (98) 97 03/14/20 17:00 114/57 03/14/20 16:30 69 19 109/72 (84) 97 03/14/20 16:00 Non-Rebreather 15.0 03/14/20 16:00 64 19 97/50 (66) 92 03/14/20 16:00 98.6 03/14/20 16:00 95/53 03/14/20 16:00 66 03/14/20 15:00 65 19 95/54 (68) 90 03/14/20 15:00 107/56 03/14/20 14:45 63 25 105/47 (66) 88 03/14/20 14:30 70 23 100/49 (66) 88 03/14/20 14:15 68 21 99/46 (63) 88 03/14/20 14:00 73 17 128/63 (84) 86 03/14/20 14:00 99/46 03/14/20 13:45 128/62 03/14/20 13:45 62 22 120/60 (80) 91 03/14/20 13:30 120/60 03/14/20 13:30 62 23 109/56 (73) 91 03/14/20 13:15 106/55 03/14/20 13:15 69 20 106/55 (72) 94 03/14/20 13:03 92 Non-Rebreather 15.0 100 03/14/20 13:00 64 24 129/65 (86) 94 03/14/20 13:00 106/55 03/14/20 12:51 65 21 119/64 (82) 96 03/14/20 12:45 75/51 03/14/20 12:42 63 22 106/46 (66) 94 03/14/20 12:30 89/59 03/14/20 12:30 62 21 89/59 (69) 93 03/14/20 12:15 93/44 03/14/20 12:00 Non-Rebreather 15.0 03/14/20 12:00 98.6 70 21 82/35 (51) 93 03/14/20 12:00 69 03/14/20 11:54 84/44 03/14/20 11:00 71 21 75/41 (52) 89 03/14/20 10:00 77 24 104/61 (75) 84 03/14/20 09:00 70 25 92/48 (63) 91 03/14/20 08:00 Non-Rebreather 15.0 03/14/20 08:00 98.5 74 26 112/44 (66) 96 03/14/20 08:00 74 03/14/20 07:00 74 25 103/51 (68) 89 03/14/20 06:00 70 25 98/52 (67) 90 03/14/20 05:00 72 30 95/57 (70) 87 03/14/20 04:00 98.3 75 19 116/62 (80) 95 03/14/20 04:00 69 03/14/20 04:00 Non-Rebreather 15.0 03/14/20 03:00 72 24 118/54 (75) 89 03/14/20 02:00 70 26 105/48 (67) 88 03/14/20 01:00 74 20 108/56 (73) 86 03/14/20 00:00 Non-Rebreather 15.0 03/14/20 00:00 67 03/14/20 00:00 Non-Rebreather 15.0 03/14/20 00:00 98.0 71 23 107/56 (73) 92 03/13/20 23:00 70 21 104/53 (70) 96 03/13/20 22:00 67 20 114/57 (76) 92 03/13/20 21:00 66 22 106/54 (71) 88 03/13/20 20:00 Non-Rebreather 15.0 03/13/20 20:00 68 03/13/20 20:00 98.0 71 22 96/61 (73) 92 03/13/20 19:00 70 17 116/60 (78) 97 03/13/20 18:00 70 23 100/58 (72) 97 03/13/20 17:00 72 17 101/52 (68) 91 03/13/20 16:00 71 16 101/53 (69) 96 03/13/20 16:00 97.9 03/13/20 16:00 Non-Rebreather 15.0 03/13/20 16:00 74 03/13/20 15:00 70 21 124/59 (80) 92 03/13/20 14:00 76 24 105/53 (70) 88 03/13/20 13:00 75 17 113/57 (75) 87 03/13/20 12:00 97.8 74 26 102/49 (66) 84 03/13/20 12:00 Non-Rebreather 15.0 03/13/20 12:00 76 03/13/20 11:00 75 20 89/34 (52) 81 03/13/20 10:43 Non-Rebreather 15.0 Non-Rebreather 15.0 03/13/20 10:37 74 03/13/20 10:30 97.3 74 18 114/55 (74) 86 03/13/20 08:00 96.7 73 18 114/60 (78) 91 Intake and Output 03/14/20 03/15/20 19:00 07:00 Intake Total 793.125 ml 635.0 ml Output Total 775 ml 760 ml Balance 18.125 ml -125.0 ml IV Total 793.125 ml 635.0 ml Output Urine Total 775 ml 760 ml Labs Test 03/13/20 06:17 03/13/20 09:16 03/14/20 00:28 03/14/20 03:30 White Blood Count 4.8 K/UL (4.8-10.8) 4.5 K/UL (4.8-10.8) Red Blood Count 3.22 M/UL (4.20-5.40) 2.92 M/UL (4.20-5.40) Hemoglobin 10.6 G/DL (12.0-16.0) 9.6 G/DL (12.0-16.0) Hematocrit 32.3 % (37.0-47.0) 29.3 % (37.0-47.0) Mean Corpuscular Volume 100 FL (80-99) 100 FL (80-99) Mean Corpuscular Hemoglobin 33.0 PG (27.0-31.0) 32.7 PG (27.0-31.0) Mean Corpuscular Hemoglobin Concent 32.9 G/DL (32.0-36.0) 32.6 G/DL (32.0-36.0) Red Cell Distribution Width 16.3 % (11.6-14.8) 16.7 % (11.6-14.8) Platelet Count 156 K/UL (150-450) 118 K/UL (150-450) Mean Platelet Volume 5.3 FL (6.5-10.1) 5.9 FL (6.5-10.1) Neutrophils (%) (Auto) 76.5 % (45.0-75.0) 74.4 % (45.0-75.0) Lymphocytes (%) (Auto) 17.0 % (20.0-45.0) 12.2 % (20.0-45.0) Monocytes (%) (Auto) 4.0 % (1.0-10.0) 8.5 % (1.0-10.0) Eosinophils (%) (Auto) 2.3 % (0.0-3.0) 4.1 % (0.0-3.0) Basophils (%) (Auto) 0.2 % (0.0-2.0) 0.7 % (0.0-2.0) Sodium Level 138 MMOL/L (136-145) 139 MMOL/L (136-145) Potassium Level 3.0 MMOL/L (3.5-5.1) 2.6 MMOL/L (3.5-5.1) Chloride Level 97 MMOL/L (98-107) 98 MMOL/L (98-107) Carbon Dioxide Level 36 MMOL/L (21-32) 39 MMOL/L (21-32) Anion Gap 5 mmol/L (5-15) 3 mmol/L (5-15) Blood Urea Nitrogen 7 mg/dL (7-18) 6 mg/dL (7-18) Creatinine 0.6 MG/DL (0.55-1.30) 0.6 MG/DL (0.55-1.30) Estimat Glomerular Filtration Rate > 60 mL/min (>60) > 60 mL/min (>60) Glucose Level 67 MG/DL (74-106) 92 MG/DL (74-106) Calcium Level 8.1 MG/DL (8.5-10.1) 7.6 MG/DL (8.5-10.1) Arterial Blood pH 7.502 (7.350-7.450) 7.495 (7.350-7.450) Arterial Blood Partial Pressure CO2 46.3 mmHg (35.0-45.0) 50.3 mmHg (35.0-45.0) Arterial Blood Partial Pressure O2 58.3 mmHg (75.0-100.0) 52.1 mmHg (75.0-100.0) Arterial Blood HCO3 33.5 mmol/L (22.0-26.0) 37.9 mmol/L (22.0-26.0) Arterial Blood Oxygen Saturation 90.1 % (95-100) 86.3 % (95-100) Arterial Blood Base Excess 11 (-2-2) 13.0 (-2-2) Joaquin Test Positive Positive Total Bilirubin 1.4 MG/DL (0.2-1.0) Direct Bilirubin 0.5 MG/DL (0.0-0.3) Aspartate Amino Transf (AST/SGOT) 71 U/L (15-37) Alanine Aminotransferase (ALT/SGPT) 19 U/L (12-78) Alkaline Phosphatase 97 U/L (46-116) Total Protein 7.9 G/DL (6.4-8.2) Albumin 1.8 G/DL (3.4-5.0) Globulin 6.1 g/dL Albumin/Globulin Ratio 0.3 (1.0-2.7) Test 03/14/20 07:58 03/14/20 09:15 03/15/20 04:00 Arterial Blood pH 7.499 (7.350-7.450) Arterial Blood Partial Pressure CO2 50.2 mmHg (35.0-45.0) Arterial Blood Partial Pressure O2 51.1 mmHg (75.0-100.0) Arterial Blood HCO3 38.2 mmol/L (22.0-26.0) Arterial Blood Oxygen Saturation 86.9 % (95-100) Arterial Blood Base Excess 12.9 (-2-2) Joaquin Test Positive D-Dimer 8.06 mg/L FEU (0.00-0.49) Magnesium Level 1.4 MG/DL (1.8-2.4) 1.6 MG/DL (1.8-2.4) Ferritin 835 NG/ML (8-388) Total Bilirubin 1.3 MG/DL (0.2-1.0) 1.5 MG/DL (0.2-1.0) Direct Bilirubin 0.5 MG/DL (0.0-0.3) 0.4 MG/DL (0.0-0.3) Aspartate Amino Transf (AST/SGOT) 69 U/L (15-37) 74 U/L (15-37) Alanine Aminotransferase (ALT/SGPT) 17 U/L (12-78) 19 U/L (12-78) Alkaline Phosphatase 94 U/L (46-116) 98 U/L (46-116) Lactate Dehydrogenase 415 U/L (81-234) Troponin I 0.009 ng/mL (0.000-0.056) C-Reactive Protein, Quantitative 16.2 mg/dL (0.00-0.90) Pro-B-Type Natriuretic Peptide 624 pg/mL (0-125) Total Protein 7.7 G/DL (6.4-8.2) 8.0 G/DL (6.4-8.2) Albumin 1.7 G/DL (3.4-5.0) 1.7 G/DL (3.4-5.0) White Blood Count 6.6 K/UL (4.8-10.8) Red Blood Count 3.01 M/UL (4.20-5.40) Hemoglobin 9.8 G/DL (12.0-16.0) Hematocrit 30.0 % (37.0-47.0) Mean Corpuscular Volume 100 FL (80-99) Mean Corpuscular Hemoglobin 32.5 PG (27.0-31.0) Mean Corpuscular Hemoglobin Concent 32.5 G/DL (32.0-36.0) Red Cell Distribution Width 16.5 % (11.6-14.8) Platelet Count 105 K/UL (150-450) Mean Platelet Volume 6.4 FL (6.5-10.1) Neutrophils (%) (Auto) 76.7 % (45.0-75.0) Lymphocytes (%) (Auto) 11.6 % (20.0-45.0) Monocytes (%) (Auto) 7.4 % (1.0-10.0) Eosinophils (%) (Auto) 3.7 % (0.0-3.0) Basophils (%) (Auto) 0.6 % (0.0-2.0) Sodium Level 137 MMOL/L (136-145) Potassium Level 3.6 MMOL/L (3.5-5.1) Chloride Level 99 MMOL/L (98-107) Carbon Dioxide Level 39 MMOL/L (21-32) Anion Gap -1 mmol/L (5-15) Blood Urea Nitrogen 7 mg/dL (7-18) Creatinine 0.7 MG/DL (0.55-1.30) Estimat Glomerular Filtration Rate > 60 mL/min (>60) Glucose Level 94 MG/DL (74-106) Calcium Level 7.2 MG/DL (8.5-10.1) Globulin 6.3 g/dL Albumin/Globulin Ratio 0.3 (1.0-2.7) Height (Feet): 5 Height (Inches): 1.00 Weight (Pounds): 236 Objective Physical Exam: Vitals: reviewed General: NAD HEENT: nc, at Neck: supple Chest: clear breath sounds bilaterally Cardiovascular: RRR, no s3, s4 EXT ++ Significant edema and erythema bilateral lower extremity, patient also has blistering on both feet given the edema, whittish overcrust/crusting++ Neurologic: alert, oriented x3 Skin: other - As above Brett Mcclain MD Mar 15, 2020 07:40
--- NOTE | 2020-03-15 09:33 | General Progress Note ---
Assessment/Plan Status: progressing, unchanged Assessment/Plan: macrocytic anemia elevated LFTS cirrhosis cellulitis elevated Ammonia levels respiratory distress COVID positive pna feeding on hold given respiratory distress>>> will resume when more stable patietn on 100% non breather abd us>> reviewed lactulose and Xifaxan fu stool ob>>>neg s/p one unit PRBC in this admission GI procedures if needed abx per id hepatitis panel>>>>>positive for hep C>>> needs out patient fu nutrition eval appreciated>>> cardiac diet will fu Subjective ROS Limited/Unobtainable: No Allergies: Coded Allergies: No Known Allergies (Unverified , 02/29/20) Objective Last 24 Hour Vital Signs Date Time Temp Pulse Resp B/P (MAP) Pulse Ox O2 Delivery O2 Flow Rate FiO2 03/15/20 07:00 70 96/41 (59) 91 03/15/20 07:00 109/51 03/15/20 06:45 72 107/50 (69) 92 03/15/20 06:30 72 99/45 (63) 90 03/15/20 06:00 67 109/40 (63) 90 03/15/20 06:00 109/40 03/15/20 05:45 73 111/56 (74) 93 03/15/20 05:30 75 18 111/56 (74) 89 03/15/20 05:15 69 27 102/55 (71) 90 03/15/20 05:03 97.9 03/15/20 05:00 70 23 99/51 (67) 90 03/15/20 05:00 102/55 03/15/20 04:45 72 17 108/55 (72) 95 03/15/20 04:30 70 18 104/54 (71) 97 03/15/20 04:15 71 17 113/54 (73) 100 03/15/20 04:00 98.3 72 15 116/57 (76) 97 03/15/20 04:00 69 03/15/20 04:00 116/57 03/15/20 04:00 Non-Rebreather 15.0 03/15/20 03:45 68 21 101/40 (60) 98 03/15/20 03:30 68 29 95/39 (57) 93 03/15/20 03:15 67 28 97/41 (59) 92 03/15/20 03:00 66 28 102/47 (65) 94 03/15/20 03:00 97/41 03/15/20 02:45 67 26 97/39 (58) 95 03/15/20 02:30 67 29 102/47 (65) 96 03/15/20 02:15 71 20 103/44 (63) 97 03/15/20 02:00 103/44 03/15/20 02:00 69 23 112/76 (88) 93 03/15/20 01:45 67 28 106/45 (65) 90 03/15/20 01:30 73 21 117/61 (79) 91 03/15/20 01:15 69 20 106/55 (72) 90 03/15/20 01:00 70 21 127/55 (79) 90 03/15/20 01:00 106/55 03/15/20 00:45 68 23 105/49 (67) 90 03/15/20 00:30 71 17 110/68 (82) 92 03/15/20 00:15 66 25 99/53 (68) 89 03/15/20 00:00 Non-Rebreather 15.0 03/15/20 00:00 70 03/15/20 00:00 97.9 73 18 95/47 (63) 90 03/14/20 23:55 73/46 03/14/20 23:45 71 27 83/45 (58) 89 03/14/20 23:00 73 21 108/60 (76) 90 03/14/20 22:00 99/60 03/14/20 21:45 71 27 99/56 (70) 94 03/14/20 21:30 70 24 99/59 (72) 96 03/14/20 21:19 77 19 96/64 (75) 84 03/14/20 21:15 74 19 88/55 (66) 97 03/14/20 21:00 74 23 96/35 (55) 98 03/14/20 21:00 88/55 03/14/20 20:45 74 18 97/54 (68) 98 03/14/20 20:40 98 Non-Rebreather 15.0 100 03/14/20 20:30 74 17 98/44 (62) 97 03/14/20 20:15 75 17 105/61 (76) 95 03/14/20 20:00 69 03/14/20 20:00 76 23 100/40 (60) 97 03/14/20 20:00 Non-Rebreather 15.0 03/14/20 20:00 105/61 03/14/20 19:45 64 25 112/63 (79) 96 03/14/20 19:30 62 22 101/62 (75) 92 03/14/20 19:00 122/53 03/14/20 19:00 65 26 114/51 (72) 90 03/14/20 18:00 72 19 130/61 (84) 91 03/14/20 18:00 116/64 03/14/20 17:30 67 20 127/61 (83) 99 03/14/20 17:00 69 19 134/80 (98) 97 03/14/20 17:00 114/57 03/14/20 16:30 69 19 109/72 (84) 97 03/14/20 16:00 Non-Rebreather 15.0 03/14/20 16:00 64 19 97/50 (66) 92 03/14/20 16:00 98.6 03/14/20 16:00 95/53 03/14/20 16:00 66 03/14/20 15:00 65 19 95/54 (68) 90 03/14/20 15:00 107/56 03/14/20 14:45 63 25 105/47 (66) 88 03/14/20 14:30 70 23 100/49 (66) 88 03/14/20 14:15 68 21 99/46 (63) 88 03/14/20 14:00 73 17 128/63 (84) 86 03/14/20 14:00 99/46 03/14/20 13:45 128/62 03/14/20 13:45 62 22 120/60 (80) 91 03/14/20 13:30 120/60 03/14/20 13:30 62 23 109/56 (73) 91 03/14/20 13:15 106/55 03/14/20 13:15 69 20 106/55 (72) 94 03/14/20 13:03 92 Non-Rebreather 15.0 100 03/14/20 13:00 64 24 129/65 (86) 94 03/14/20 13:00 106/55 03/14/20 12:51 65 21 119/64 (82) 96 03/14/20 12:45 75/51 03/14/20 12:42 63 22 106/46 (66) 94 03/14/20 12:30 89/59 03/14/20 12:30 62 21 89/59 (69) 93 03/14/20 12:15 93/44 03/14/20 12:00 Non-Rebreather 15.0 03/14/20 12:00 98.6 70 21 82/35 (51) 93 03/14/20 12:00 69 03/14/20 11:54 84/44 03/14/20 11:00 71 21 75/41 (52) 89 03/14/20 10:00 77 24 104/61 (75) 84 Intake and Output 03/14/20 03/15/20 19:00 07:00 Intake Total 793.125 ml 635.0 ml Output Total 775 ml 760 ml Balance 18.125 ml -125.0 ml IV Total 793.125 ml 635.0 ml Output Urine Total 775 ml 760 ml Laboratory Tests 03/15/20 04:00: White Blood Count 6.6, Red Blood Count 3.01L, Hemoglobin 9.8L, Hematocrit 30.0L , Mean Corpuscular Volume 100H, Mean Corpuscular Hemoglobin 32.5H, Mean Corpuscular Hemoglobin Concent 32.5, Red Cell Distribution Width 16.5H, Platelet Count 105L, Mean Platelet Volume 6.4L, Neutrophils (%) (Auto) 76.7H, Lymphocytes (%) (Auto) 11.6L, Monocytes (%) (Auto) 7.4, Eosinophils (%) (Auto) 3.7H, Basophils (%) (Auto) 0.6, Sodium Level 137, Potassium Level 3.6, Chloride Level 99, Carbon Dioxide Level 39H, Anion Gap -1L, Blood Urea Nitrogen 7, Creatinine 0.7, Estimat Glomerular Filtration Rate > 60, Glucose Level 94, Calcium Level 7.2L, Magnesium Level 1.6L, Total Bilirubin 1.5H, Direct Bilirubin 0.4H, Aspartate Amino Transf (AST/SGOT) 74H, Alanine Aminotransferase (ALT/SGPT) 19, Alkaline Phosphatase 98, Total Protein 8.0, Albumin 1.7L, Globulin 6.3, Albumin/Globulin Ratio 0.3L 03/15/20 08:31: Arterial Blood pH 7.463H, Arterial Blood Partial Pressure CO2 49.2H, Arterial Blood Partial Pressure O2 52.1L, Arterial Blood HCO3 34.4H, Arterial Blood Oxygen Saturation 85.6*L, Arterial Blood Base Excess 9.5*H, Joaquin Test Positive Height (Feet): 5 Height (Inches): 1.00 Weight (Pounds): 236 General Appearance: lethargic EENT: normal ENT inspection Neck: supple Cardiovascular: tachycardia Respiratory/Chest: decreased breath sounds Abdomen: normal bowel sounds, non tender, soft Extremities: non-tender Tam Spicer MD Mar 15, 2020 09:33
[2020-03-15] MEDS: Azithromycin 250mg tab ORAL SCH (09:45)
[2020-03-15] MEDS: Cefepime HCl 1 GM in D5W 55 ML IVPB SCH ×2 (09:45→21:17)
[2020-03-15] MEDS: Enoxaparin 40mg Inj SUBQ SCH (09:49)
--- NOTE | 2020-03-15 11:37 | Infectious Diseases Prog Note ---
Assessment/Plan Assessment/Plan IMPRESSION: 1. Bilateral leg cellulitis,Pseudomonas in culture 2. Anemia. 3. Hypoxemia 4. Thrombocytopenia. 5. Homeless 6. Morbid obesity. 7. Cirrhosis 8. COVID19 pneumonia Positive03/07-03/12 9. Hepatitis C Worsening LFT RECOMMENDATION: Will f/u COVID19 test Finished Plaquenil course Continue Cefepime & Zithromax Repeat CXR Negative VQ scan Subjective ROS Limited/Unobtainable: Yes Constitutional: Denies: fever Respiratory: Reports: dry cough Cardiovascular: Reports: other - hyponstive on low dose Levophed Allergies: Coded Allergies: No Known Allergies (Unverified , 02/29/20) Objective Vital Signs Last 24 Hour Vital Signs Date Time Temp Pulse Resp B/P (MAP) Pulse Ox O2 Delivery O2 Flow Rate FiO2 03/15/20 10:30 81 22 111/56 (74) 85 03/15/20 10:00 78 22 112/52 (72) 89 03/15/20 10:00 112/52 03/15/20 09:30 77 18 116/61 (79) 90 03/15/20 09:00 88/69 03/15/20 09:00 79 18 88/69 (75) 85 03/15/20 08:30 74 18 105/54 (71) 88 03/15/20 08:00 Non-Rebreather 15.0 03/15/20 08:00 108/59 03/15/20 08:00 99.0 74 18 108/59 (75) 87 03/15/20 07:30 73 18 102/43 (62) 88 03/15/20 07:00 70 96/41 (59) 91 03/15/20 07:00 109/51 03/15/20 06:45 72 107/50 (69) 92 03/15/20 06:30 72 99/45 (63) 90 03/15/20 06:00 67 109/40 (63) 90 03/15/20 06:00 109/40 03/15/20 05:45 73 111/56 (74) 93 03/15/20 05:30 75 18 111/56 (74) 89 03/15/20 05:15 69 27 102/55 (71) 90 03/15/20 05:03 97.9 03/15/20 05:00 70 23 99/51 (67) 90 03/15/20 05:00 102/55 03/15/20 04:45 72 17 108/55 (72) 95 03/15/20 04:30 70 18 104/54 (71) 97 03/15/20 04:15 71 17 113/54 (73) 100 03/15/20 04:00 98.3 72 15 116/57 (76) 97 03/15/20 04:00 69 03/15/20 04:00 116/57 03/15/20 04:00 Non-Rebreather 15.0 03/15/20 03:45 68 21 101/40 (60) 98 03/15/20 03:30 68 29 95/39 (57) 93 03/15/20 03:15 67 28 97/41 (59) 92 03/15/20 03:00 66 28 102/47 (65) 94 03/15/20 03:00 97/41 03/15/20 02:45 67 26 97/39 (58) 95 03/15/20 02:30 67 29 102/47 (65) 96 03/15/20 02:15 71 20 103/44 (63) 97 03/15/20 02:00 103/44 03/15/20 02:00 69 23 112/76 (88) 93 03/15/20 01:45 67 28 106/45 (65) 90 03/15/20 01:30 73 21 117/61 (79) 91 03/15/20 01:15 69 20 106/55 (72) 90 03/15/20 01:00 70 21 127/55 (79) 90 03/15/20 01:00 106/55 03/15/20 00:45 68 23 105/49 (67) 90 03/15/20 00:30 71 17 110/68 (82) 92 03/15/20 00:15 66 25 99/53 (68) 89 03/15/20 00:00 Non-Rebreather 15.0 03/15/20 00:00 70 03/15/20 00:00 97.9 73 18 95/47 (63) 90 03/14/20 23:55 73/46 03/14/20 23:45 71 27 83/45 (58) 89 03/14/20 23:00 73 21 108/60 (76) 90 03/14/20 22:00 99/60 03/14/20 21:45 71 27 99/56 (70) 94 03/14/20 21:30 70 24 99/59 (72) 96 03/14/20 21:19 77 19 96/64 (75) 84 03/14/20 21:15 74 19 88/55 (66) 97 03/14/20 21:00 74 23 96/35 (55) 98 03/14/20 21:00 88/55 03/14/20 20:45 74 18 97/54 (68) 98 03/14/20 20:40 98 Non-Rebreather 15.0 100 03/14/20 20:30 74 17 98/44 (62) 97 03/14/20 20:15 75 17 105/61 (76) 95 03/14/20 20:00 69 03/14/20 20:00 76 23 100/40 (60) 97 03/14/20 20:00 Non-Rebreather 15.0 03/14/20 20:00 105/61 03/14/20 19:45 64 25 112/63 (79) 96 03/14/20 19:30 62 22 101/62 (75) 92 03/14/20 19:00 122/53 03/14/20 19:00 65 26 114/51 (72) 90 03/14/20 18:00 72 19 130/61 (84) 91 03/14/20 18:00 116/64 03/14/20 17:30 67 20 127/61 (83) 99 03/14/20 17:00 69 19 134/80 (98) 97 03/14/20 17:00 114/57 03/14/20 16:30 69 19 109/72 (84) 97 03/14/20 16:00 Non-Rebreather 15.0 03/14/20 16:00 64 19 97/50 (66) 92 03/14/20 16:00 98.6 03/14/20 16:00 95/53 03/14/20 16:00 66 03/14/20 15:00 65 19 95/54 (68) 90 03/14/20 15:00 107/56 03/14/20 14:45 63 25 105/47 (66) 88 03/14/20 14:30 70 23 100/49 (66) 88 03/14/20 14:15 68 21 99/46 (63) 88 03/14/20 14:00 73 17 128/63 (84) 86 03/14/20 14:00 99/46 03/14/20 13:45 128/62 03/14/20 13:45 62 22 120/60 (80) 91 03/14/20 13:30 120/60 03/14/20 13:30 62 23 109/56 (73) 91 03/14/20 13:15 106/55 03/14/20 13:15 69 20 106/55 (72) 94 03/14/20 13:03 92 Non-Rebreather 15.0 100 03/14/20 13:00 64 24 129/65 (86) 94 03/14/20 13:00 106/55 03/14/20 12:51 65 21 119/64 (82) 96 03/14/20 12:45 75/51 03/14/20 12:42 63 22 106/46 (66) 94 03/14/20 12:30 89/59 03/14/20 12:30 62 21 89/59 (69) 93 03/14/20 12:15 93/44 03/14/20 12:00 Non-Rebreather 15.0 03/14/20 12:00 98.6 70 21 82/35 (51) 93 03/14/20 12:00 69 03/14/20 11:54 84/44 Height (Feet): 5 Height (Inches): 1.00 Weight (Pounds): 236 General Appearance: other - obese Respiratory/Chest: other - oxygen by rebreathing mask Cardiovascular: normal rate Abdomen: soft, non tender Extremities: other - edema of legs Skin: ulcers, other - feet Neurologic/Psychiatric: alert, responsive Microbiology Date/Time Source Procedure Growth Status 03/12/20 17:35 Nasopharynx Coronavirus COVID-19 PCR ([facility]ANIELLA) - Final Complete Laboratory Tests Test 03/15/20 04:00 03/15/20 08:31 White Blood Count 6.6 K/UL (4.8-10.8) Red Blood Count 3.01 M/UL (4.20-5.40) L Hemoglobin 9.8 G/DL (12.0-16.0) L Hematocrit 30.0 % (37.0-47.0) L Mean Corpuscular Volume 100 FL (80-99) H Mean Corpuscular Hemoglobin 32.5 PG (27.0-31.0) H Mean Corpuscular Hemoglobin Concent 32.5 G/DL (32.0-36.0) Red Cell Distribution Width 16.5 % (11.6-14.8) H Platelet Count 105 K/UL (150-450) L Mean Platelet Volume 6.4 FL (6.5-10.1) L Neutrophils (%) (Auto) 76.7 % (45.0-75.0) H Lymphocytes (%) (Auto) 11.6 % (20.0-45.0) L Monocytes (%) (Auto) 7.4 % (1.0-10.0) Eosinophils (%) (Auto) 3.7 % (0.0-3.0) H Basophils (%) (Auto) 0.6 % (0.0-2.0) Sodium Level 137 MMOL/L (136-145) Potassium Level 3.6 MMOL/L (3.5-5.1) Chloride Level 99 MMOL/L (98-107) Carbon Dioxide Level 39 MMOL/L (21-32) H Anion Gap -1 mmol/L (5-15) L Blood Urea Nitrogen 7 mg/dL (7-18) Creatinine 0.7 MG/DL (0.55-1.30) Estimat Glomerular Filtration Rate > 60 mL/min (>60) Glucose Level 94 MG/DL (74-106) Calcium Level 7.2 MG/DL (8.5-10.1) L Magnesium Level 1.6 MG/DL (1.8-2.4) L Total Bilirubin 1.5 MG/DL (0.2-1.0) H Direct Bilirubin 0.4 MG/DL (0.0-0.3) H Aspartate Amino Transf (AST/SGOT) 74 U/L (15-37) H Alanine Aminotransferase (ALT/SGPT) 19 U/L (12-78) Alkaline Phosphatase 98 U/L (46-116) Total Protein 8.0 G/DL (6.4-8.2) Albumin 1.7 G/DL (3.4-5.0) L Globulin 6.3 g/dL Albumin/Globulin Ratio 0.3 (1.0-2.7) L Arterial Blood pH 7.463 (7.350-7.450) Arterial Blood Partial Pressure CO2 49.2 mmHg (35.0-45.0) H Arterial Blood Partial Pressure O2 52.1 mmHg (75.0-100.0) L Arterial Blood HCO3 34.4 mmol/L (22.0-26.0) H Arterial Blood Oxygen Saturation 85.6 % (95-100) *L Arterial Blood Base Excess 9.5 (-2-2) *H Joaquin Test Positive Current Medications Medications (Trade) Dose Ordered Sig/Dolores Route PRN Reason Start Time Stop Time Status Last Admin Dose Admin Acetaminophen (Tylenol) 650 mg Q4H PRN ORAL Mild Pain (Pain Scale 1-3) 03/13/20 14:53 04/12/20 14:52 03/14/20 08:58 Acetaminophen (Tylenol) 650 mg Q4H PRN ORAL Temp >100 03/13/20 14:53 04/12/20 14:52 Albuterol Sulfate (Proventil MDI) 2 puff Q6HRT INH 03/13/20 19:00 06/05/20 12:59 03/15/20 05:50 Azithromycin (Zithromax) 500 mg DAILY ORAL 03/14/20 09:00 03/20/20 10:59 03/15/20 09:45 Cefepime HCl 1 gm/ Dextrose 55 ml @ 110 mls/hr EVERY 12 HOURS IVPB 03/13/20 21:00 03/20/20 10:59 03/15/20 09:45 Chlorhexidine Gluconate (Lucretia-Hex 2%) 1 applic DAILY@2000 TOPIC 03/13/20 20:00 06/11/20 19:59 03/14/20 20:12 Dextrose/Sodium Chloride 1,000 ml @ 50 mls/hr Q20H IV 03/15/20 01:00 04/14/20 00:59 03/15/20 01:00 Diphenhydramine HCl (Benadryl) 25 mg Q4H PRN ORAL moderate itching 03/13/20 14:54 04/12/20 14:53 Diphenhydramine HCl (Benadryl) 50 mg Q4H PRN ORAL SEVERE ITCHING 03/13/20 14:53 04/12/20 14:52 Enoxaparin Sodium (Lovenox) 40 mg DAILY SUBQ 03/14/20 09:00 06/10/20 08:59 03/15/20 09:49 Furosemide (Lasix) 20 mg BID IV 03/15/20 09:00 04/14/20 08:59 03/15/20 09:47 Mirtazapine (Remeron) 7.5 mg BEDTIME PRN ORAL SLEEP 03/13/20 14:55 06/11/20 14:54 Morphine Sulfate (Morphine Sulfate) 1 mg Q4H PRN IVP For Pain 03/13/20 14:55 03/20/20 14:54 03/15/20 10:10 Norepinephrine Bitartrate 4 mg/ Dextrose 250 ml @ 0 mls/hr Q24H PRN IV For hypotension 03/13/20 14:53 04/12/20 14:52 03/14/20 23:55 Potassium Chloride (K-Dur) 20 meq BID ORAL 03/14/20 09:00 06/11/20 08:59 03/15/20 09:47 Jonathon Shah MD Mar 15, 2020 11:37
--- NOTE | 2020-03-15 15:48 | Surgery Progress Note ---
Surgery Progress Note Subjective Additional Comments still on pressors no n/v/f/c ill appearing dressings okay labs noted Objective Last 24 Hour Vital Signs Date Time Temp Pulse Resp B/P (MAP) Pulse Ox O2 Delivery O2 Flow Rate FiO2 03/15/20 15:00 74 19 98/43 (61) 93 03/15/20 15:00 98/43 03/15/20 14:30 77 18 101/46 (64) 94 03/15/20 14:00 73 27 97/44 (61) 84 03/15/20 14:00 97/44 03/15/20 13:30 79 20 113/57 (75) 93 03/15/20 13:00 113/57 03/15/20 13:00 75 25 90/34 (52) 91 03/15/20 12:30 81 17 104/48 (66) 87 03/15/20 12:15 72 22 90/52 (65) 91 03/15/20 12:00 Non-Rebreather 15.0 03/15/20 12:00 109/53 03/15/20 12:00 99.1 78 24 109/53 (71) 91 03/15/20 11:49 78 03/15/20 11:30 73 20 106/45 (65) 93 03/15/20 11:00 76 20 60/42 (48) 87 03/15/20 11:00 60/42 03/15/20 10:30 81 22 111/56 (74) 85 03/15/20 10:00 78 22 112/52 (72) 89 03/15/20 10:00 112/52 03/15/20 09:30 77 18 116/61 (79) 90 03/15/20 09:00 88/69 03/15/20 09:00 79 18 88/69 (75) 85 03/15/20 08:30 74 18 105/54 (71) 88 03/15/20 08:00 Non-Rebreather 15.0 03/15/20 08:00 108/59 03/15/20 08:00 99.0 74 18 108/59 (75) 87 03/15/20 07:48 70 03/15/20 07:30 73 18 102/43 (62) 88 03/15/20 07:00 70 96/41 (59) 91 03/15/20 07:00 109/51 03/15/20 06:45 72 107/50 (69) 92 03/15/20 06:30 72 99/45 (63) 90 03/15/20 06:00 67 109/40 (63) 90 03/15/20 06:00 109/40 03/15/20 05:45 73 111/56 (74) 93 03/15/20 05:30 75 18 111/56 (74) 89 03/15/20 05:15 69 27 102/55 (71) 90 03/15/20 05:03 97.9 03/15/20 05:00 70 23 99/51 (67) 90 03/15/20 05:00 102/55 03/15/20 04:45 72 17 108/55 (72) 95 03/15/20 04:30 70 18 104/54 (71) 97 03/15/20 04:15 71 17 113/54 (73) 100 03/15/20 04:00 98.3 72 15 116/57 (76) 97 03/15/20 04:00 69 03/15/20 04:00 116/57 03/15/20 04:00 Non-Rebreather 15.0 03/15/20 03:45 68 21 101/40 (60) 98 03/15/20 03:30 68 29 95/39 (57) 93 03/15/20 03:15 67 28 97/41 (59) 92 03/15/20 03:00 66 28 102/47 (65) 94 03/15/20 03:00 97/41 03/15/20 02:45 67 26 97/39 (58) 95 03/15/20 02:30 67 29 102/47 (65) 96 03/15/20 02:15 71 20 103/44 (63) 97 03/15/20 02:00 103/44 03/15/20 02:00 69 23 112/76 (88) 93 03/15/20 01:45 67 28 106/45 (65) 90 03/15/20 01:30 73 21 117/61 (79) 91 03/15/20 01:15 69 20 106/55 (72) 90 03/15/20 01:00 70 21 127/55 (79) 90 03/15/20 01:00 106/55 03/15/20 00:45 68 23 105/49 (67) 90 03/15/20 00:30 71 17 110/68 (82) 92 03/15/20 00:15 66 25 99/53 (68) 89 03/15/20 00:00 Non-Rebreather 15.0 03/15/20 00:00 70 03/15/20 00:00 97.9 73 18 95/47 (63) 90 03/14/20 23:55 73/46 03/14/20 23:45 71 27 83/45 (58) 89 03/14/20 23:00 73 21 108/60 (76) 90 03/14/20 22:00 99/60 03/14/20 21:45 71 27 99/56 (70) 94 03/14/20 21:30 70 24 99/59 (72) 96 03/14/20 21:19 77 19 96/64 (75) 84 03/14/20 21:15 74 19 88/55 (66) 97 03/14/20 21:00 74 23 96/35 (55) 98 03/14/20 21:00 88/55 03/14/20 20:45 74 18 97/54 (68) 98 03/14/20 20:40 98 Non-Rebreather 15.0 100 03/14/20 20:30 74 17 98/44 (62) 97 03/14/20 20:15 75 17 105/61 (76) 95 03/14/20 20:00 69 03/14/20 20:00 76 23 100/40 (60) 97 03/14/20 20:00 Non-Rebreather 15.0 03/14/20 20:00 105/61 03/14/20 19:45 64 25 112/63 (79) 96 03/14/20 19:30 62 22 101/62 (75) 92 03/14/20 19:00 122/53 03/14/20 19:00 65 26 114/51 (72) 90 03/14/20 18:00 72 19 130/61 (84) 91 03/14/20 18:00 116/64 03/14/20 17:30 67 20 127/61 (83) 99 03/14/20 17:00 69 19 134/80 (98) 97 03/14/20 17:00 114/57 4/28/20 16:30 69 19 109/72 (84) 97 03/14/20 16:00 Non-Rebreather 15.0 03/14/20 16:00 64 19 97/50 (66) 92 03/14/20 16:00 98.6 03/14/20 16:00 95/53 03/14/20 16:00 66 I&O Intake and Output 03/14/20 03/15/20 19:00 07:00 Intake Total 793.125 ml 635.0 ml Output Total 775 ml 760 ml Balance 18.125 ml -125.0 ml IV Total 793.125 ml 635.0 ml Output Urine Total 775 ml 760 ml Dressing: dry Wound: clean Cardiovascular: RSR Respiratory: clear Abdomen: soft, non-tender, present bowel sounds Extremities: edema, tenderness, no cyanosis, pulses, other Laboratory Tests Test 03/15/20 04:00 03/15/20 08:31 White Blood Count 6.6 K/UL (4.8-10.8) Red Blood Count 3.01 M/UL (4.20-5.40) L Hemoglobin 9.8 G/DL (12.0-16.0) L Hematocrit 30.0 % (37.0-47.0) L Mean Corpuscular Volume 100 FL (80-99) H Mean Corpuscular Hemoglobin 32.5 PG (27.0-31.0) H Mean Corpuscular Hemoglobin Concent 32.5 G/DL (32.0-36.0) Red Cell Distribution Width 16.5 % (11.6-14.8) H Platelet Count 105 K/UL (150-450) L Mean Platelet Volume 6.4 FL (6.5-10.1) L Neutrophils (%) (Auto) 76.7 % (45.0-75.0) H Lymphocytes (%) (Auto) 11.6 % (20.0-45.0) L Monocytes (%) (Auto) 7.4 % (1.0-10.0) Eosinophils (%) (Auto) 3.7 % (0.0-3.0) H Basophils (%) (Auto) 0.6 % (0.0-2.0) Sodium Level 137 MMOL/L (136-145) Potassium Level 3.6 MMOL/L (3.5-5.1) Chloride Level 99 MMOL/L (98-107) Carbon Dioxide Level 39 MMOL/L (21-32) H Anion Gap -1 mmol/L (5-15) L Blood Urea Nitrogen 7 mg/dL (7-18) Creatinine 0.7 MG/DL (0.55-1.30) Estimat Glomerular Filtration Rate > 60 mL/min (>60) Glucose Level 94 MG/DL (74-106) Calcium Level 7.2 MG/DL (8.5-10.1) L Magnesium Level 1.6 MG/DL (1.8-2.4) L Total Bilirubin 1.5 MG/DL (0.2-1.0) H Direct Bilirubin 0.4 MG/DL (0.0-0.3) H Aspartate Amino Transf (AST/SGOT) 74 U/L (15-37) H Alanine Aminotransferase (ALT/SGPT) 19 U/L (12-78) Alkaline Phosphatase 98 U/L (46-116) Total Protein 8.0 G/DL (6.4-8.2) Albumin 1.7 G/DL (3.4-5.0) L Globulin 6.3 g/dL Albumin/Globulin Ratio 0.3 (1.0-2.7) L Arterial Blood pH 7.463 (7.350-7.450) Arterial Blood Partial Pressure CO2 49.2 mmHg (35.0-45.0) H Arterial Blood Partial Pressure O2 52.1 mmHg (75.0-100.0) L Arterial Blood HCO3 34.4 mmol/L (22.0-26.0) H Arterial Blood Oxygen Saturation 85.6 % (95-100) *L Arterial Blood Base Excess 9.5 (-2-2) *H Joaquin Test Positive Plan Problems: (1) Cellulitis Assessment & Plan: bilateral lower extremity cellulitis / edema chronic venous status changes dermatitis no abscess no purulent drainage ulcerations forming. keep lower extremity elevated while in bed apply skin protectant / moisturizing cream daily okay to shower okay to wrap soft after cream abx as per ID for cellulitis okay for diet duplex ordered trend labs will follow with recs thank you No evidence of deep venous thrombosis involving the visualized veins of the RIGHT lower extremity. refused eval of left COVID ++ cxr noted cont current supportive care improving labs stable improving slowly wean pressors as tolerated Theron Sotomayor Mar 15, 2020 15:48
[2020-03-15] MEDS: propofoL 1,000mg/100ml 100 ML IV SCH (18:00)
--- NOTE | 2020-03-15 18:04 | Emergency Room Report ---
History of Present Illness General Chief Complaint: Skin Rash/Abscess Source: Patient, Medical Record, PMD Present Illness HPI 59-year-old female presents with respiratory distress, worsening over the past 48 hours, patient's CO2 has been increasing as well as patient has become hypoxic, I was called by Dr. Carrillo to intubate patient. Allergies: Coded Allergies: No Known Allergies (Unverified , 02/29/20) COVID-19 Screening Contact w/high risk pt: No Recent Travel to affected area: No Experienced COVID-19 symptoms?: No Patient History Limited by: medical condition - In respiratory distressed Past Medical History: see triage record Now: No Reviewed Nursing Documentation: PMH: Agreed; PSxH: Agreed Nursing Documentation-PMH Past Medical History: No History, Except For Review of Systems All Other Systems: limited - In respiratory distress Physical Exam Vital Signs Date Time Temp Pulse Resp B/P (MAP) Pulse Ox O2 Delivery O2 Flow Rate FiO2 03/11/20 08:00 98.2 72 22 117/66 (83) 95 03/11/20 09:00 Non-Rebreather 15.0 Non-Rebreather 15.0 03/14/20 13:03 100 Sp02 EP Interpretation: abnormal - Hypoxic General Appearance: severe distress Head: normocephalic, atraumatic ENT: hearing grossly normal, normal voice Neck: full range of motion, supple Respiratory: respiratory distress, accessory muscle use Neurologic: alert, responsive Psychiatric: anxious Skin: no rash Procedures Critical Care Time Critical Care Time Given the critical condition in which the patient arrived, the patient was immediately assessed by myself and the nurse, and cardiac monitoring initiated due to the potential for rapid decompensation of the patient's clinical condition. During the course of the patient's stay, I spent a considerable amount of time at the bedside performing serial re-evaluations of the patient's hemodynamic and clinical status because of the recognized potential threat to life or limb in this condition. I then had a chance to review not only all of the available current laboratory and radiographic studies obtained today, but I also reviewed old records available to me at the time. Additionally, any ancillary information available including [employer] records were reviewed. Sequential vital signs were obtained. Critical Care time of 15 minutes was performed exclusive of billable procedures. Intubation Intubation : Consent: Emergent Time of Intubation: 17:35 Intubation Method: orotracheal Tube Size (cm): 7.5 Medications: Etomidate, Rocuronium Intubation Complications: no complications Post Intubation Xray: Yes Progress/Xray Impression: Endotracheal tube well-seated Attempts: One Patient Tolerated: Well Complications: None Medical Decision Making Diagnostic Impression: Primary Impression: Cellulitis Qualified Codes: L03.119 - Cellulitis of unspecified part of limb Additional Impressions: Respiratory distress Respiratory failure with hypoxia Qualified Codes: J96.01 - Acute respiratory failure with hypoxia ER Course 59-year-old female presents with acute respiratory distress, spoke with patient patient was okay with intubation counseled patient on the risks and benefits aware that she is undergoing respiratory failure with worsening blood gas Patient intubated Laboratory Tests Test 03/14/20 00:28 03/14/20 03:30 03/14/20 07:58 03/14/20 09:15 Arterial Blood pH 7.495 (7.350-7.450) 7.499 (7.350-7.450) Arterial Blood Partial Pressure CO2 50.3 mmHg (35.0-45.0) H 50.2 mmHg (35.0-45.0) H Arterial Blood Partial Pressure O2 52.1 mmHg (75.0-100.0) L 51.1 mmHg (75.0-100.0) L Arterial Blood HCO3 37.9 mmol/L (22.0-26.0) H 38.2 mmol/L (22.0-26.0) H Arterial Blood Oxygen Saturation 86.3 % (95-100) *L 86.9 % (95-100) *L Arterial Blood Base Excess 13.0 (-2-2) *H 12.9 (-2-2) *H Joaquin Test Positive Positive White Blood Count 4.5 K/UL (4.8-10.8) L Red Blood Count 2.92 M/UL (4.20-5.40) L Hemoglobin 9.6 G/DL (12.0-16.0) L Hematocrit 29.3 % (37.0-47.0) L Mean Corpuscular Volume 100 FL (80-99) H Mean Corpuscular Hemoglobin 32.7 PG (27.0-31.0) H Mean Corpuscular Hemoglobin Concent 32.6 G/DL (32.0-36.0) Red Cell Distribution Width 16.7 % (11.6-14.8) H Platelet Count 118 K/UL (150-450) L Mean Platelet Volume 5.9 FL (6.5-10.1) L Neutrophils (%) (Auto) 74.4 % (45.0-75.0) Lymphocytes (%) (Auto) 12.2 % (20.0-45.0) L Monocytes (%) (Auto) 8.5 % (1.0-10.0) Eosinophils (%) (Auto) 4.1 % (0.0-3.0) H Basophils (%) (Auto) 0.7 % (0.0-2.0) Sodium Level 139 MMOL/L (136-145) Potassium Level 2.6 MMOL/L (3.5-5.1) *L Chloride Level 98 MMOL/L (98-107) Carbon Dioxide Level 39 MMOL/L (21-32) H Anion Gap 3 mmol/L (5-15) L Blood Urea Nitrogen 6 mg/dL (7-18) L Creatinine 0.6 MG/DL (0.55-1.30) Estimated Glomerular Filtration Rate > 60 mL/min (>60) Glucose Level 92 MG/DL (74-106) Calcium Level 7.6 MG/DL (8.5-10.1) L Total Bilirubin 1.4 MG/DL (0.2-1.0) H 1.3 MG/DL (0.2-1.0) H Direct Bilirubin 0.5 MG/DL (0.0-0.3) H 0.5 MG/DL (0.0-0.3) H Aspartate Amino Transferase (AST) 71 U/L (15-37) H 69 U/L (15-37) H Alanine Aminotransferase (ALT) 19 U/L (12-78) 17 U/L (12-78) Alkaline Phosphatase 97 U/L (46-116) 94 U/L (46-116) Total Protein 7.9 G/DL (6.4-8.2) 7.7 G/DL (6.4-8.2) Albumin 1.8 G/DL (3.4-5.0) L 1.7 G/DL (3.4-5.0) L Globulin 6.1 g/dL Albumin/Globulin Ratio 0.3 (1.0-2.7) L D-Dimer 8.06 mg/L FEU (0.00-0.49) H Magnesium Level 1.4 MG/DL (1.8-2.4) L Ferritin 835 NG/ML (8-388) H Lactate Dehydrogenase 415 U/L (81-234) H Troponin I 0.009 ng/mL (0.000-0.056) C-Reactive Protein, Quantitative 16.2 mg/dL (0.00-0.90) H Pro-B-Type Natriuretic Peptide 624 pg/mL (0-125) H Interleukin 6 (IL-6) Pending Test 03/15/20 04:00 03/15/20 08:31 03/15/20 15:56 03/15/20 18:39 White Blood Count 6.6 K/UL (4.8-10.8) Red Blood Count 3.01 M/UL (4.20-5.40) L Hemoglobin 9.8 G/DL (12.0-16.0) L Hematocrit 30.0 % (37.0-47.0) L Mean Corpuscular Volume 100 FL (80-99) H Mean Corpuscular Hemoglobin 32.5 PG (27.0-31.0) H Mean Corpuscular Hemoglobin Concent 32.5 G/DL (32.0-36.0) Red Cell Distribution Width 16.5 % (11.6-14.8) H Platelet Count 105 K/UL (150-450) L Mean Platelet Volume 6.4 FL (6.5-10.1) L Neutrophils (%) (Auto) 76.7 % (45.0-75.0) H Lymphocytes (%) (Auto) 11.6 % (20.0-45.0) L Monocytes (%) (Auto) 7.4 % (1.0-10.0) Eosinophils (%) (Auto) 3.7 % (0.0-3.0) H Basophils (%) (Auto) 0.6 % (0.0-2.0) Sodium Level 137 MMOL/L (136-145) Potassium Level 3.6 MMOL/L (3.5-5.1) Chloride Level 99 MMOL/L (98-107) Carbon Dioxide Level 39 MMOL/L (21-32) H Anion Gap -1 mmol/L (5-15) L Blood Urea Nitrogen 7 mg/dL (7-18) Creatinine 0.7 MG/DL (0.55-1.30) Estimated Glomerular Filtration Rate > 60 mL/min (>60) Glucose Level 94 MG/DL (74-106) Calcium Level 7.2 MG/DL (8.5-10.1) L Magnesium Level 1.6 MG/DL (1.8-2.4) L Total Bilirubin 1.5 MG/DL (0.2-1.0) H Direct Bilirubin 0.4 MG/DL (0.0-0.3) H Aspartate Amino Transferase (AST) 74 U/L (15-37) H Alanine Aminotransferase (ALT) 19 U/L (12-78) Alkaline Phosphatase 98 U/L (46-116) Total Protein 8.0 G/DL (6.4-8.2) Albumin 1.7 G/DL (3.4-5.0) L Globulin 6.3 g/dL Albumin/Globulin Ratio 0.3 (1.0-2.7) L Arterial Blood pH 7.463 (7.350-7.450) 7.416 (7.350-7.450) 7.450 (7.350-7.450) Arterial Blood Partial Pressure CO2 49.2 mmHg (35.0-45.0) H 57.4 mmHg (35.0-45.0) *H 51.6 mmHg (35.0-45.0) H Arterial Blood Partial Pressure O2 52.1 mmHg (75.0-100.0) L 50.3 mmHg (75.0-100.0) L 110.9 mmHg (75.0-100.0) H Arterial Blood HCO3 34.4 mmol/L (22.0-26.0) H 36.1 mmol/L (22.0-26.0) H 35.5 mmol/L (22.0-26.0) H Arterial Blood Oxygen Saturation 85.6 % (95-100) *L 83.3 % (95-100) *L 98.1 % (95-100) Arterial Blood Base Excess 9.5 (-2-2) *H 10.0 (-2-2) *H 10.2 (-2-2) *H Joaquin Test Positive N/a Positive Chest X-Ray Diagnostic Results Chest X-Ray Diagnostic Results : Chest X-Ray Ordered: Yes # of Views/Limited/Complete: 1 View Indication: Other - Status post intubation EP Interpretation: Yes Interpretation: other - Bilateral opacities, endotracheal tube well-seated Impression: Other - Bilateral opacities, endotracheal tube well-seated Electronically Signed by: Wes Brito MD Last Vital Signs Date Time Temp Pulse Resp B/P (MAP) Pulse Ox O2 Delivery O2 Flow Rate FiO2 03/15/20 18:00 22 135/98 100 03/15/20 17:56 98 93 Mechanical Ventilator 03/15/20 16:00 100.0 03/15/20 16:00 15.0 Disposition: ADMITTED INPATIENT Condition: Critical Referrals: NON PHYSICIAN (PCP) Wes Brito MD Mar 15, 2020 18:03
[2020-03-15] MEDS: fentaNYL Citrate 2,500 MCG in NS 200 ML IV SCH ×2 (18:10→20:30)
--- NOTE | 2020-03-15 19:21 | Diagnostic Imaging Report ---
EXAM: XR Chest, 1 View CLINICAL HISTORY: LINE TECHNIQUE: Frontal view of the chest. COMPARISON: 03/13/2020 FINDINGS: Lungs: Increasing diffuse bilateral patchy consolidative opacities with more pronounced involvement of the left lung than right concerning for diffuse multifocal pneumonia or ARDS. Some component of superimposed left lung atelectasis could also be present given right mainstem intubation. Pleural space: No pleural effusions definitively seen. No pneumothorax. Heart: Likely normal cardiomediastinal silhouettes size given portable technique and low lung volumes. Mediastinum: See above. Bones/joints: Unremarkable. Tubes, lines and devices: ETT placement, right mainstem bronchus intubation, tip 1.2 cm below the mike. Recommend retraction of ET tube approximately 3-4 centimeters and recommend repeat imaging to assess for optimal positioning. Left upper extremity PICC with tip in the region of the mid SVC. IMPRESSION: 1. ETT placement, right mainstem bronchus intubation, tip 1.2 cm below the mike. 2. Recommend retraction of ET tube approximately 3-4 centimeters and recommend repeat imaging to assess for optimal positioning. 3. Increasing diffuse bilateral patchy consolidative opacities with more pronounced involvement of the left lung than right concerning for diffuse multifocal pneumonia or ARDS. Some component of superimposed left lung atelectasis could also be present given right mainstem intubation. 4. No pleural effusions definitively seen. 5. Likely normal cardiomediastinal silhouettes size given portable technique and low lung volumes. 6. Left upper extremity PICC with tip in the region of the mid SVC. <MYCVCSECTION> Communications: 03/15/20 19:24 Call Doctor Regarding Other, called Alisha ANN on 03/15 19:24 (-07:00)
[2020-03-15] MEDS: Dyna-Hex 2% Top Sol 2oz TOPIC SCH (19:45)
--- NOTE | 2020-03-15 20:36 | Diagnostic Imaging Report ---
EXAM: XR Abdomen, 2 Views CLINICAL HISTORY: NGT TECHNIQUE: Frontal view of the abdomen/pelvis with upright view of the abdomen. COMPARISON: Prior study 2h previously FINDINGS: Lower thorax: Unchanged severe bilateral diffuse airspace opacities could represent multifocal pneumonia or ARDS. Intraperitoneal space: No free air. Gastrointestinal tract: Unremarkable. No dilation. Bones/joints: Unremarkable. Tubes, lines and devices: Repositioned ETT, tip now 2.1cm above mike. Unchanged left upper extremity PICC, tip at the mid SVC. Enteric tube with tip and proximal sideport below the gastroesophageal junction. IMPRESSION: 1. Repositioned ETT, tip now 2.1cm above mike. 2. Unchanged left upper extremity PICC, tip at the mid SVC. 3. Enteric tube with tip and proximal sideport below the gastroesophageal junction. 4. Unchanged severe bilateral diffuse airspace opacities could represent multifocal pneumonia or ARDS.
--- NOTE | 2020-03-15 20:44 | Diagnostic Imaging Report ---
EXAM: XR chest, 1 view CLINICAL HISTORY: NGT TECHNIQUE: Frontal view of the abdomen/pelvis with upright view of the abdomen. COMPARISON: Prior study 2h previously FINDINGS: Lower thorax: Unchanged severe bilateral diffuse airspace opacities could represent multifocal pneumonia or ARDS. Intraperitoneal space: No free air. Gastrointestinal tract: Unremarkable. No dilation. Bones/joints: Unremarkable. Tubes, lines and devices: Repositioned ETT, tip now 2.1cm above mike. Unchanged left upper extremity PICC, tip at the mid SVC. Enteric tube with tip and proximal sideport below the gastroesophageal junction. IMPRESSION: 1. Repositioned ETT, tip now 2.1cm above mike. 2. Unchanged left upper extremity PICC, tip at the mid SVC. 3. Enteric tube with tip and proximal sideport below the gastroesophageal junction. 4. Unchanged severe bilateral diffuse airspace opacities could represent multifocal pneumonia or ARDS.
--- NOTE | 2020-03-15 21:37 | General Progress Note ---
Assessment/Plan Problem List: (1) Cellulitis ICD Codes: L03.90 - Cellulitis, unspecified SNOMED: [id number] Qualifiers: Qualified Codes: L03.119 - Cellulitis of unspecified part of limb Status: progressing, unchanged Assessment/Plan: weak reviewed chart and labs no wheezing abx per id coivd positive resps insuff pna sepsis anemia cirrhosis obese Subjective ROS Limited/Unobtainable: Yes Allergies: Coded Allergies: No Known Allergies (Unverified , 02/29/20) Objective Last 24 Hour Vital Signs Date Time Temp Pulse Resp B/P (MAP) Pulse Ox O2 Delivery O2 Flow Rate FiO2 03/15/20 21:17 99.0 03/15/20 21:16 112/65 03/15/20 20:30 22 Mechanical Ventilator 100 03/15/20 19:00 22 76/43 Mechanical Ventilator 100 03/15/20 19:00 76/43 03/15/20 19:00 74 22 76/43 (54) 100 03/15/20 18:58 100 22 100 03/15/20 18:30 77 22 91/52 (65) 100 03/15/20 18:15 84 22 105/63 (77) 97 03/15/20 18:00 98.5 94 22 163/79 (107) 94 03/15/20 18:00 100 03/15/20 18:00 22 135/98 100 03/15/20 18:00 163/79 03/15/20 17:56 98 22 93 Mechanical Ventilator 100 03/15/20 17:49 98 22 100 03/15/20 17:30 77 17 105/45 (65) 93 03/15/20 17:00 77 17 108/53 (71) 82 03/15/20 17:00 108/53 03/15/20 16:30 69 26 105/42 (63) 86 03/15/20 16:00 100.0 74 18 98/31 (53) 89 03/15/20 16:00 74 03/15/20 16:00 98/31 03/15/20 16:00 Non-Rebreather 15.0 03/15/20 15:00 74 19 98/43 (61) 93 03/15/20 15:00 98/43 03/15/20 14:30 77 18 101/46 (64) 94 03/15/20 14:00 73 27 97/44 (61) 84 03/15/20 14:00 97/44 03/15/20 13:30 79 20 113/57 (75) 93 03/15/20 13:00 113/57 03/15/20 13:00 75 25 90/34 (52) 91 03/15/20 12:30 81 17 104/48 (66) 87 03/15/20 12:15 72 22 90/52 (65) 91 03/15/20 12:00 Non-Rebreather 15.0 03/15/20 12:00 109/53 03/15/20 12:00 99.1 78 24 109/53 (71) 91 03/15/20 11:49 78 03/15/20 11:30 73 20 106/45 (65) 93 03/15/20 11:00 76 20 60/42 (48) 87 03/15/20 11:00 60/42 03/15/20 10:30 81 22 111/56 (74) 85 03/15/20 10:00 78 22 112/52 (72) 89 03/15/20 10:00 112/52 03/15/20 09:30 77 18 116/61 (79) 90 03/15/20 09:00 88/69 03/15/20 09:00 79 18 88/69 (75) 85 03/15/20 08:30 74 18 105/54 (71) 88 03/15/20 08:00 Non-Rebreather 15.0 03/15/20 08:00 108/59 03/15/20 08:00 99.0 74 18 108/59 (75) 87 03/15/20 07:48 70 03/15/20 07:30 73 18 102/43 (62) 88 03/15/20 07:00 70 96/41 (59) 91 03/15/20 07:00 109/51 03/15/20 06:45 72 107/50 (69) 92 03/15/20 06:30 72 99/45 (63) 90 03/15/20 06:00 67 109/40 (63) 90 03/15/20 06:00 109/40 03/15/20 05:45 73 111/56 (74) 93 03/15/20 05:30 75 18 111/56 (74) 89 03/15/20 05:15 69 27 102/55 (71) 90 03/15/20 05:03 97.9 03/15/20 05:00 70 23 99/51 (67) 90 03/15/20 05:00 102/55 03/15/20 04:45 72 17 108/55 (72) 95 03/15/20 04:30 70 18 104/54 (71) 97 03/15/20 04:15 71 17 113/54 (73) 100 03/15/20 04:00 98.3 72 15 116/57 (76) 97 03/15/20 04:00 69 03/15/20 04:00 116/57 03/15/20 04:00 Non-Rebreather 15.0 03/15/20 03:45 68 21 101/40 (60) 98 03/15/20 03:30 68 29 95/39 (57) 93 03/15/20 03:15 67 28 97/41 (59) 92 03/15/20 03:00 66 28 102/47 (65) 94 03/15/20 03:00 97/41 03/15/20 02:45 67 26 97/39 (58) 95 03/15/20 02:30 67 29 102/47 (65) 96 03/15/20 02:15 71 20 103/44 (63) 97 03/15/20 02:00 103/44 03/15/20 02:00 69 23 112/76 (88) 93 03/15/20 01:45 67 28 106/45 (65) 90 03/15/20 01:30 73 21 117/61 (79) 91 03/15/20 01:15 69 20 106/55 (72) 90 03/15/20 01:00 70 21 127/55 (79) 90 03/15/20 01:00 106/55 03/15/20 00:45 68 23 105/49 (67) 90 03/15/20 00:30 71 17 110/68 (82) 92 03/15/20 00:15 66 25 99/53 (68) 89 03/15/20 00:00 Non-Rebreather 15.0 03/15/20 00:00 70 03/15/20 00:00 97.9 73 18 95/47 (63) 90 03/14/20 23:55 73/46 03/14/20 23:45 71 27 83/45 (58) 89 03/14/20 23:00 73 21 108/60 (76) 90 03/14/20 22:00 99/60 03/14/20 21:45 71 27 99/56 (70) 94 Intake and Output 03/14/20 03/15/20 19:00 07:00 Intake Total 793.125 ml 635.0 ml Output Total 775 ml 760 ml Balance 18.125 ml -125.0 ml IV Total 793.125 ml 635.0 ml Output Urine Total 775 ml 760 ml Laboratory Tests 03/15/20 04:00: White Blood Count 6.6, Red Blood Count 3.01L, Hemoglobin 9.8L, Hematocrit 30.0L , Mean Corpuscular Volume 100H, Mean Corpuscular Hemoglobin 32.5H, Mean Corpuscular Hemoglobin Concent 32.5, Red Cell Distribution Width 16.5H, Platelet Count 105L, Mean Platelet Volume 6.4L, Neutrophils (%) (Auto) 76.7H, Lymphocytes (%) (Auto) 11.6L, Monocytes (%) (Auto) 7.4, Eosinophils (%) (Auto) 3.7H, Basophils (%) (Auto) 0.6, Sodium Level 137, Potassium Level 3.6, Chloride Level 99, Carbon Dioxide Level 39H, Anion Gap -1L, Blood Urea Nitrogen 7, Creatinine 0.7, Estimat Glomerular Filtration Rate > 60, Glucose Level 94, Calcium Level 7.2L, Magnesium Level 1.6L, Total Bilirubin 1.5H, Direct Bilirubin 0.4H, Aspartate Amino Transf (AST/SGOT) 74H, Alanine Aminotransferase (ALT/SGPT) 19, Alkaline Phosphatase 98, Total Protein 8.0, Albumin 1.7L, Globulin 6.3, Albumin/Globulin Ratio 0.3L 03/15/20 08:31: Arterial Blood pH 7.463H, Arterial Blood Partial Pressure CO2 49.2H, Arterial Blood Partial Pressure O2 52.1L, Arterial Blood HCO3 34.4H, Arterial Blood Oxygen Saturation 85.6*L, Arterial Blood Base Excess 9.5*H, Joaquin Test Positive 03/15/20 15:56: Arterial Blood pH 7.416, Arterial Blood Partial Pressure CO2 57.4*H, Arterial Blood Partial Pressure O2 50.3L, Arterial Blood HCO3 36.1H, Arterial Blood Oxygen Saturation 83.3*L, Arterial Blood Base Excess 10.0*H, Joaquin Test N/a 03/15/20 18:39: Arterial Blood pH 7.450, Arterial Blood Partial Pressure CO2 51.6H, Arterial Blood Partial Pressure O2 110.9H, Arterial Blood HCO3 35.5H, Arterial Blood Oxygen Saturation 98.1, Arterial Blood Base Excess 10.2*H, Joaquin Test Positive Height (Feet): 5 Height (Inches): 1.00 Weight (Pounds): 236 Celso Moreno MD Mar 15, 2020 21:37
--- NOTE | 2020-03-15 22:50 | Cardiology Progress Note ---
Assessment/Plan Assessment/Plan 1. Noncardiac chest pain, acute myocardial function is ruled out by two negative troponin I levels, 12-lead electrocardiogram does not show any acute ischemic changes. Continue furosemide. 2. Bilateral lower extremity cellulitis with Pseudomonas aeruginosa in culture. 3. Pancytopenia, most likely due to hepatitis C virus infection/liver cirrhosis. 4. Hypomagnesemia, Mg sulfate given. Subjective Subjective Sinus rhythm at rate of 64. Objective Last 24 Hour Vital Signs Date Time Temp Pulse Resp B/P (MAP) Pulse Ox O2 Delivery O2 Flow Rate FiO2 03/15/20 22:00 99/52 03/15/20 22:00 20 99/52 Mechanical Ventilator 100 03/15/20 22:00 20 Mechanical Ventilator 100 03/15/20 21:45 20 100/56 Mechanical Ventilator 100 03/15/20 21:30 20 107/59 Mechanical Ventilator 100 03/15/20 21:17 99.0 03/15/20 21:16 112/65 03/15/20 21:15 20 105/62 Mechanical Ventilator 100 03/15/20 21:00 20 116/65 Mechanical Ventilator 100 03/15/20 21:00 20 Mechanical Ventilator 100 03/15/20 20:45 20 100/46 Mechanical Ventilator 100 03/15/20 20:30 22 100/56 Mechanical Ventilator 100 03/15/20 20:30 22 Mechanical Ventilator 100 03/15/20 20:00 22 67/51 Mechanical Ventilator 100 03/15/20 19:00 22 76/43 Mechanical Ventilator 100 03/15/20 19:00 76/43 03/15/20 19:00 74 22 76/43 (54) 100 03/15/20 18:58 100 22 100 03/15/20 18:30 77 22 91/52 (65) 100 03/15/20 18:15 84 22 105/63 (77) 97 03/15/20 18:00 98.5 94 22 163/79 (107) 94 03/15/20 18:00 100 03/15/20 18:00 22 135/98 100 03/15/20 18:00 163/79 03/15/20 17:56 98 22 93 Mechanical Ventilator 100 03/15/20 17:49 98 22 100 03/15/20 17:30 77 17 105/45 (65) 93 03/15/20 17:00 77 17 108/53 (71) 82 03/15/20 17:00 108/53 03/15/20 16:30 69 26 105/42 (63) 86 03/15/20 16:00 100.0 74 18 98/31 (53) 89 03/15/20 16:00 74 03/15/20 16:00 98/31 03/15/20 16:00 Non-Rebreather 15.0 03/15/20 15:00 74 19 98/43 (61) 93 03/15/20 15:00 98/43 03/15/20 14:30 77 18 101/46 (64) 94 03/15/20 14:00 73 27 97/44 (61) 84 03/15/20 14:00 97/44 03/15/20 13:30 79 20 113/57 (75) 93 03/15/20 13:00 113/57 03/15/20 13:00 75 25 90/34 (52) 91 03/15/20 12:30 81 17 104/48 (66) 87 03/15/20 12:15 72 22 90/52 (65) 91 03/15/20 12:00 Non-Rebreather 15.0 03/15/20 12:00 109/53 03/15/20 12:00 99.1 78 24 109/53 (71) 91 03/15/20 11:49 78 03/15/20 11:30 73 20 106/45 (65) 93 03/15/20 11:00 76 20 60/42 (48) 87 03/15/20 11:00 60/42 03/15/20 10:30 81 22 111/56 (74) 85 03/15/20 10:00 78 22 112/52 (72) 89 03/15/20 10:00 112/52 03/15/20 09:30 77 18 116/61 (79) 90 03/15/20 09:00 88/69 03/15/20 09:00 79 18 88/69 (75) 85 03/15/20 08:30 74 18 105/54 (71) 88 03/15/20 08:00 Non-Rebreather 15.0 03/15/20 08:00 108/59 03/15/20 08:00 99.0 74 18 108/59 (75) 87 03/15/20 07:48 70 03/15/20 07:30 73 18 102/43 (62) 88 03/15/20 07:00 70 96/41 (59) 91 03/15/20 07:00 109/51 03/15/20 06:45 72 107/50 (69) 92 03/15/20 06:30 72 99/45 (63) 90 03/15/20 06:00 67 109/40 (63) 90 03/15/20 06:00 109/40 03/15/20 05:45 73 111/56 (74) 93 03/15/20 05:30 75 18 111/56 (74) 89 03/15/20 05:15 69 27 102/55 (71) 90 03/15/20 05:03 97.9 03/15/20 05:00 70 23 99/51 (67) 90 03/15/20 05:00 102/55 03/15/20 04:45 72 17 108/55 (72) 95 03/15/20 04:30 70 18 104/54 (71) 97 03/15/20 04:15 71 17 113/54 (73) 100 03/15/20 04:00 98.3 72 15 116/57 (76) 97 03/15/20 04:00 69 03/15/20 04:00 116/57 03/15/20 04:00 Non-Rebreather 15.0 03/15/20 03:45 68 21 101/40 (60) 98 03/15/20 03:30 68 29 95/39 (57) 93 03/15/20 03:15 67 28 97/41 (59) 92 03/15/20 03:00 66 28 102/47 (65) 94 03/15/20 03:00 97/41 03/15/20 02:45 67 26 97/39 (58) 95 03/15/20 02:30 67 29 102/47 (65) 96 03/15/20 02:15 71 20 103/44 (63) 97 03/15/20 02:00 103/44 03/15/20 02:00 69 23 112/76 (88) 93 03/15/20 01:45 67 28 106/45 (65) 90 03/15/20 01:30 73 21 117/61 (79) 91 03/15/20 01:15 69 20 106/55 (72) 90 03/15/20 01:00 70 21 127/55 (79) 90 03/15/20 01:00 106/55 03/15/20 00:45 68 23 105/49 (67) 90 03/15/20 00:30 71 17 110/68 (82) 92 03/15/20 00:15 66 25 99/53 (68) 89 03/15/20 00:00 Non-Rebreather 15.0 03/15/20 00:00 70 03/15/20 00:00 97.9 73 18 95/47 (63) 90 03/14/20 23:55 73/46 03/14/20 23:45 71 27 83/45 (58) 89 03/14/20 23:00 73 21 108/60 (76) 90 Intake and Output 03/14/20 03/15/20 19:00 07:00 Intake Total 793.125 ml 635.0 ml Output Total 775 ml 760 ml Balance 18.125 ml -125.0 ml IV Total 793.125 ml 635.0 ml Output Urine Total 775 ml 760 ml Laboratory Tests Test 03/15/20 04:00 03/15/20 08:31 03/15/20 15:56 03/15/20 18:39 White Blood Count 6.6 K/UL (4.8-10.8) Red Blood Count 3.01 M/UL (4.20-5.40) L Hemoglobin 9.8 G/DL (12.0-16.0) L Hematocrit 30.0 % (37.0-47.0) L Mean Corpuscular Volume 100 FL (80-99) H Mean Corpuscular Hemoglobin 32.5 PG (27.0-31.0) H Mean Corpuscular Hemoglobin Concent 32.5 G/DL (32.0-36.0) Red Cell Distribution Width 16.5 % (11.6-14.8) H Platelet Count 105 K/UL (150-450) L Mean Platelet Volume 6.4 FL (6.5-10.1) L Neutrophils (%) (Auto) 76.7 % (45.0-75.0) H Lymphocytes (%) (Auto) 11.6 % (20.0-45.0) L Monocytes (%) (Auto) 7.4 % (1.0-10.0) Eosinophils (%) (Auto) 3.7 % (0.0-3.0) H Basophils (%) (Auto) 0.6 % (0.0-2.0) Sodium Level 137 MMOL/L (136-145) Potassium Level 3.6 MMOL/L (3.5-5.1) Chloride Level 99 MMOL/L (98-107) Carbon Dioxide Level 39 MMOL/L (21-32) H Anion Gap -1 mmol/L (5-15) L Blood Urea Nitrogen 7 mg/dL (7-18) Creatinine 0.7 MG/DL (0.55-1.30) Estimat Glomerular Filtration Rate > 60 mL/min (>60) Glucose Level 94 MG/DL (74-106) Calcium Level 7.2 MG/DL (8.5-10.1) L Magnesium Level 1.6 MG/DL (1.8-2.4) L Total Bilirubin 1.5 MG/DL (0.2-1.0) H Direct Bilirubin 0.4 MG/DL (0.0-0.3) H Aspartate Amino Transf (AST/SGOT) 74 U/L (15-37) H Alanine Aminotransferase (ALT/SGPT) 19 U/L (12-78) Alkaline Phosphatase 98 U/L (46-116) Total Protein 8.0 G/DL (6.4-8.2) Albumin 1.7 G/DL (3.4-5.0) L Globulin 6.3 g/dL Albumin/Globulin Ratio 0.3 (1.0-2.7) L Arterial Blood pH 7.463 (7.350-7.450) 7.416 (7.350-7.450) 7.450 (7.350-7.450) Arterial Blood Partial Pressure CO2 49.2 mmHg (35.0-45.0) H 57.4 mmHg (35.0-45.0) *H 51.6 mmHg (35.0-45.0) H Arterial Blood Partial Pressure O2 52.1 mmHg (75.0-100.0) L 50.3 mmHg (75.0-100.0) L 110.9 mmHg (75.0-100.0) H Arterial Blood HCO3 34.4 mmol/L (22.0-26.0) H 36.1 mmol/L (22.0-26.0) H 35.5 mmol/L (22.0-26.0) H Arterial Blood Oxygen Saturation 85.6 % (95-100) *L 83.3 % (95-100) *L 98.1 % (95-100) Arterial Blood Base Excess 9.5 (-2-2) *H 10.0 (-2-2) *H 10.2 (-2-2) *H Joaquin Test Positive N/a Positive Objective HEENT: Atraumatic and normocephalic. Anicteric. Pupils are equal, round, and reactive to light and accommodation. Extraocular muscles intact. NECK: JVP cannot be assessed. No carotid bruit. Carotid upstroke is 2+ bilaterally. CARDIOVASCULAR: Normal S1, S2. Regular rate and rhythm. No murmurs, gallops, or rubs. PMI is at fourth intercostal space at left midclavicular line. LUNGS: Clear to auscultation bilaterally. ABDOMEN: Soft, nontender, and nondistended. No hepatosplenomegaly. Positive bowel sounds. EXTREMITIES: A 2+ edema bilaterally associated with erythema with blistering and crossing of both feet. Berto Gonzalez MD Mar 15, 2020 22:50
--- NOTE | 2020-03-15 23:58 | Pulmonolgy Critical Care Note ---
Critical Care - Asmt/Plan Assessment/Plan: Pulmonary CCM Progress Note HPI Patient is a 59 year old woman with significant obesity, admitted with bilateral lower extremity cellulitis, had complained of increased swelling and redness to both of her feet and legs Had elevated BNP on admission, persistent edema since admission, worsening hypoxia, LE DVT (right) negative for DVT. Patient is a poor historian reports that she has been having increased weakness over several days [employer], had denied any fevers, vomiting or diarrhea [employer], had previous hospitalizations for cellulitis. COVID 19 positive, Pneumonia VQ no significant perfusion abnormality Prev LE dupplex negative High D Dimer level Despite being diuresed, worsening infiltrates on CXR, worsening hypoxia Intubated, PEEP 12 Seen earlier Allergies: No Known Allergies Past Medical History: Obesity, Cirrhosis, Anemia, Anxiety, Cellulitis All Other Systems: negative except mentioned in HPI Physical Exam Vital Signs Noted General Appearance: Obese, Sedated,intubated Head: normocephalic, atraumatic Eyes: bilateral eye PERRL, bilateral eye EOMI ENT: EOM grossly intact, moist MM, no LN Respiratory: lungs clear, bilateral rhonchi Cardiovascular: regular rate, rhythm, HS1, HS2 RRR Gastrointestinal: Obese, soft non tender, ND Musculoskeletal: Significant edema and erythema bilateral lower extremity, patient also has crusting on both feet, Neurologic: seadted, no focalsigns Impression: Bilateral Lower Extremity Cellulitis Elevated NPA, severe bilateral edema Covid Pneumonia Worsening hypoxia, PaO2 less than 60 on 100%, elevated PCO2 of 48, no intubated Cirrhosis Splenomegaly Anemia Anxiety Plan IV Antibiotics per ID Surgery following for wounds Hematology following for anemia, observing for Neutropenia Diurese PRN Monitor labs Bronchodilators PPX - SCD, Lovenox Echocardiogram AC VC Proning NPO as will need intubation if deterioration continues IV mainenance fluids Supplement electrolytes Albuterol PRN Labs Noted Chest X-Ray: Cardiomegaly, left lower lobe atelectasis versus effusion, worsening infiltrates/congestion Subjective ROS Limited/Unobtainable: No Constitutional: Reports: no symptoms Gastrointestinal/Abdominal: Reports: no symptoms Musculoskeletal: Reports: other - SOB Allergies: Coded Allergies: No Known Allergies (Unverified , 02/29/20) ICU time 50 minutes Critical Care - Objective Last 24 Hour Vital Signs Date Time Temp Pulse Resp B/P (MAP) Pulse Ox O2 Delivery O2 Flow Rate FiO2 03/15/20 23:20 100 23 100 03/15/20 22:00 99/52 03/15/20 22:00 20 99/52 Mechanical Ventilator 100 03/15/20 22:00 20 Mechanical Ventilator 100 03/15/20 21:45 20 100/56 Mechanical Ventilator 100 03/15/20 21:30 20 107/59 Mechanical Ventilator 100 03/15/20 21:17 99.0 03/15/20 21:16 112/65 03/15/20 21:15 20 105/62 Mechanical Ventilator 100 03/15/20 21:00 100 03/15/20 21:00 20 116/65 Mechanical Ventilator 100 03/15/20 21:00 20 Mechanical Ventilator 100 03/15/20 20:59 100 22 100 03/15/20 20:45 20 100/46 Mechanical Ventilator 100 03/15/20 20:30 22 100/56 Mechanical Ventilator 100 03/15/20 20:30 22 Mechanical Ventilator 100 03/15/20 20:00 Mechanical Ventilator 03/15/20 20:00 22 67/51 Mechanical Ventilator 100 03/15/20 20:00 100 03/15/20 19:00 22 76/43 Mechanical Ventilator 100 03/15/20 19:00 76/43 03/15/20 19:00 74 22 76/43 (54) 100 03/15/20 18:58 100 22 100 03/15/20 18:30 77 22 91/52 (65) 100 03/15/20 18:15 84 22 105/63 (77) 97 03/15/20 18:00 98.5 94 22 163/79 (107) 94 03/15/20 18:00 100 03/15/20 18:00 22 135/98 100 03/15/20 18:00 163/79 03/15/20 17:56 98 22 93 Mechanical Ventilator 100 03/15/20 17:49 98 22 100 03/15/20 17:30 77 17 105/45 (65) 93 03/15/20 17:00 77 17 108/53 (71) 82 03/15/20 17:00 108/53 03/15/20 16:30 69 26 105/42 (63) 86 03/15/20 16:00 100.0 74 18 98/31 (53) 89 03/15/20 16:00 74 03/15/20 16:00 98/31 03/15/20 16:00 Non-Rebreather 15.0 03/15/20 15:00 74 19 98/43 (61) 93 03/15/20 15:00 98/43 03/15/20 14:30 77 18 101/46 (64) 94 03/15/20 14:00 73 27 97/44 (61) 84 03/15/20 14:00 97/44 03/15/20 13:30 79 20 113/57 (75) 93 03/15/20 13:00 113/57 03/15/20 13:00 75 25 90/34 (52) 91 03/15/20 12:30 81 17 104/48 (66) 87 03/15/20 12:15 72 22 90/52 (65) 91 03/15/20 12:00 Non-Rebreather 15.0 03/15/20 12:00 109/53 03/15/20 12:00 99.1 78 24 109/53 (71) 91 03/15/20 11:49 78 03/15/20 11:30 73 20 106/45 (65) 93 03/15/20 11:00 76 20 60/42 (48) 87 03/15/20 11:00 60/42 03/15/20 10:30 81 22 111/56 (74) 85 03/15/20 10:00 78 22 112/52 (72) 89 03/15/20 10:00 112/52 03/15/20 09:30 77 18 116/61 (79) 90 03/15/20 09:00 88/69 03/15/20 09:00 79 18 88/69 (75) 85 03/15/20 08:30 74 18 105/54 (71) 88 03/15/20 08:00 Non-Rebreather 15.0 03/15/20 08:00 108/59 03/15/20 08:00 99.0 74 18 108/59 (75) 87 03/15/20 07:48 70 03/15/20 07:30 73 18 102/43 (62) 88 03/15/20 07:00 70 96/41 (59) 91 03/15/20 07:00 109/51 03/15/20 06:45 72 107/50 (69) 92 03/15/20 06:30 72 99/45 (63) 90 03/15/20 06:00 67 109/40 (63) 90 03/15/20 06:00 109/40 03/15/20 05:45 73 111/56 (74) 93 03/15/20 05:30 75 18 111/56 (74) 89 03/15/20 05:15 69 27 102/55 (71) 90 03/15/20 05:03 97.9 03/15/20 05:00 70 23 99/51 (67) 90 03/15/20 05:00 102/55 03/15/20 04:45 72 17 108/55 (72) 95 03/15/20 04:30 70 18 104/54 (71) 97 03/15/20 04:15 71 17 113/54 (73) 100 03/15/20 04:00 98.3 72 15 116/57 (76) 97 03/15/20 04:00 69 03/15/20 04:00 116/57 03/15/20 04:00 Non-Rebreather 15.0 03/15/20 03:45 68 21 101/40 (60) 98 03/15/20 03:30 68 29 95/39 (57) 93 03/15/20 03:15 67 28 97/41 (59) 92 03/15/20 03:00 66 28 102/47 (65) 94 03/15/20 03:00 97/41 03/15/20 02:45 67 26 97/39 (58) 95 03/15/20 02:30 67 29 102/47 (65) 96 03/15/20 02:15 71 20 103/44 (63) 97 03/15/20 02:00 103/44 03/15/20 02:00 69 23 112/76 (88) 93 03/15/20 01:45 67 28 106/45 (65) 90 03/15/20 01:30 73 21 117/61 (79) 91 03/15/20 01:15 69 20 106/55 (72) 90 03/15/20 01:00 70 21 127/55 (79) 90 03/15/20 01:00 106/55 03/15/20 00:45 68 23 105/49 (67) 90 03/15/20 00:30 71 17 110/68 (82) 92 03/15/20 00:15 66 25 99/53 (68) 89 03/15/20 00:00 Non-Rebreather 15.0 03/15/20 00:00 70 03/15/20 00:00 97.9 73 18 95/47 (63) 90 Critical Care - Subjective ROS Limited/Unobtainable: No Condition: critical IV Access: PICC EKG Rhythm: Sinus Rhythm FI02: 100 Vent Support Breath Rate: 22 Vent Support Mode: AC Vent Tidal Volume: 450 PEEP: 12.0 PIP: 31 I&O: Intake and Output 03/14/20 03/15/20 19:00 07:00 Intake Total 793.125 ml 635.0 ml Output Total 775 ml 760 ml Balance 18.125 ml -125.0 ml IV Total 793.125 ml 635.0 ml Output Urine Total 775 ml 760 ml ET-Tube: 7.5 ET Position: 21 Doron Carrillo MD Mar 15, 2020 23:58
[2020-03-16] VITALS (86 sets, daily range): BP systolic 68–138; BP diastolic 27–96
--- NOTE | 2020-03-16 00:15 | Progress Note ---
DATE: 03/15/2020 SUBJECTIVE: Patient is in bed. No behavior issues noted. Has anxiety. Now in ICU. MENTAL STATUS EXAMINATION: Alert, oriented times self, place, situation. Mood is neutral. Affect is flat. Thought process is concrete. Thought content, no suicidal or homicidal ideation. Cognition is intact. ASSESSMENT: Anxiety disorder. PLAN: 1. Continue Remeron. 2. Discussed with the nurse. Justice Manriquez M.D. DR: GERARDO JOB#: [id number] CC:
[2020-03-16] MEDS: Albuterol 90mcg Inhaler 8gm INH SCH ×2 (01:00→06:19)
[2020-03-16] MEDS: propofoL 1,000mg/100ml 100 ML IV SCH ×5 (01:08→17:12)
[2020-03-16 05:50] LABS: BASOPHILS % (AUTO) 0.7 % (0.0-2.0); EOSINOPHILS % (AUTO) 5.4 % (0.0-3.0); HEMATOCRIT 32.3 % (37.0-47.0); HEMOGLOBIN 10.8 G/DL (12.0-16.0); LYMPHOCYTES % (AUTO) 13.6 % (20.0-45.0); MEAN CORPUSCULAR VOLUME 100 FL (80-99); MONOCYTES % (AUTO) 5.2 % (1.0-10.0); NEUTROPHILS % (AUTO) 75.1 % (45.0-75.0); PLATELET COUNT 118 K/UL (150-450); RED BLOOD COUNT 3.24 M/UL (4.20-5.40); RED CELL DISTRIBUTION WIDTH 16.9 % (11.6-14.8); WHITE BLOOD COUNT 13.1 K/UL (4.8-10.8)
[2020-03-16 06:56] LABS: ALANINE AMINOTRANSFERASE 10 U/L (12-78); ALBUMIN 1.8 G/DL (3.4-5.0); ALBUMIN/GLOBULIN RATIO 0.3 (1.0-2.7); ALKALINE PHOSPHATASE 105 U/L (46-116); ANION GAP 3 mmol/L (5-15); ASPARTATE AMINO TRANSFERASE 73 U/L (15-37); BILIRUBIN,TOTAL 1.7 MG/DL (0.2-1.0); BLOOD UREA NITROGEN 8 mg/dL (7-18); CALCIUM 7.9 MG/DL (8.5-10.1); CARBON DIOXIDE 34 MMOL/L (21-32); CHLORIDE 95 MMOL/L (98-107); CREATININE 0.9 MG/DL (0.55-1.30); POTASSIUM 3.5 MMOL/L (3.5-5.1); SODIUM 132 MMOL/L (136-145)
[2020-03-16 06:58] LABS: BILIRUBIN,DIRECT 0.8 MG/DL (0.0-0.3)
[2020-03-16] MEDS: Cefepime HCl 1 GM in D5W 55 ML IVPB SCH (08:37)
[2020-03-16] MEDS: Azithromycin 250mg tab ORAL SCH (08:37)
[2020-03-16] MEDS: Enoxaparin 40mg Inj SUBQ SCH (08:38)
[2020-03-16] MEDS: D5NS 1,000 ML IV SCH (10:00)
--- NOTE | 2020-03-16 10:11 | General Progress Note ---
Assessment/Plan Status: progressing, unchanged Assessment/Plan: macrocytic anemia elevated LFTS cirrhosis cellulitis elevated Ammonia levels respiratory distress>>> now failure COVID positive pna will start NGTF now that patient is intubated abd us>> reviewed lactulose and Xifaxan fu stool ob>>>neg s/p one unit PRBC in this admission GI procedures if needed abx per id hepatitis panel>>>>>positive for hep C>>> needs out patient fu will fu Subjective ROS Limited/Unobtainable: No Allergies: Coded Allergies: No Known Allergies (Unverified , 02/29/20) Objective Last 24 Hour Vital Signs Date Time Temp Pulse Resp B/P (MAP) Pulse Ox O2 Delivery O2 Flow Rate FiO2 03/16/20 10:00 85/34 03/16/20 09:30 59 22 89/39 (56) 96 03/16/20 09:00 62 22 91/44 (60) 95 03/16/20 08:40 22 98/46 Mechanical Ventilator 100 03/16/20 08:30 64 22 98/46 (63) 98 03/16/20 08:00 Mechanical Ventilator 03/16/20 08:00 100 03/16/20 08:00 100.2 62 22 97/43 (61) 96 03/16/20 07:30 63 22 96/43 (60) 97 03/16/20 07:08 97 22 100 03/16/20 07:00 103/53 03/16/20 07:00 22 103/53 Mechanical Ventilator 100 03/16/20 07:00 22 Mechanical Ventilator 100 03/16/20 07:00 60 103/50 (67) 03/16/20 06:45 59 22 103/50 (67) 97 03/16/20 06:30 58 22 102/48 (66) 96 03/16/20 06:15 58 22 99/50 (66) 95 03/16/20 06:00 58 22 102/48 (66) 95 03/16/20 06:00 102/48 03/16/20 06:00 22 102/48 Mechanical Ventilator 100 03/16/20 06:00 22 Mechanical Ventilator 100 03/16/20 05:45 58 22 102/49 (66) 96 03/16/20 05:30 58 22 99/51 (67) 96 03/16/20 05:23 102/49 03/16/20 05:23 22 102/49 Mechanical Ventilator 100 03/16/20 05:15 22 99/51 Mechanical Ventilator 100 03/16/20 05:15 59 22 102/49 (66) 96 03/16/20 05:00 102/47 03/16/20 05:00 22 102/47 Mechanical Ventilator 100 03/16/20 05:00 22 Mechanical Ventilator 100 03/16/20 05:00 59 22 102/47 (65) 98 03/16/20 04:45 59 22 98/43 (61) 97 03/16/20 04:45 22 102/47 Mechanical Ventilator 100 03/16/20 04:42 92 26 100 03/16/20 04:33 68 21 106/54 (71) 91 03/16/20 04:30 22 106/54 Mechanical Ventilator 100 03/16/20 04:30 67 22 89/56 (67) 87 03/16/20 04:15 22 89/56 Mechanical Ventilator 100 03/16/20 04:15 62 22 110/54 (72) 92 03/16/20 04:00 100 03/16/20 04:00 66 03/16/20 04:00 110/54 03/16/20 04:00 22 110/54 Mechanical Ventilator 100 03/16/20 04:00 22 Mechanical Ventilator 100 03/16/20 04:00 Mechanical Ventilator 03/16/20 04:00 98.9 59 22 111/48 (69) 91 03/16/20 03:45 22 111/48 Mechanical Ventilator 100 03/16/20 03:45 58 22 114/51 (72) 95 03/16/20 03:30 22 114/51 Mechanical Ventilator 100 03/16/20 03:30 57 22 113/48 (69) 96 03/16/20 03:22 57 22 104/50 (68) 96 03/16/20 03:15 22 104/50 Mechanical Ventilator 100 03/16/20 03:15 60 21 81/37 (52) 97 03/16/20 03:00 63 22 79/40 (53) 98 03/16/20 03:00 82/37 03/16/20 03:00 22 82/37 Mechanical Ventilator 100 03/16/20 03:00 22 Mechanical Ventilator 100 03/16/20 02:57 91 24 100 03/16/20 02:54 66 22 72/31 (45) 96 03/16/20 02:51 67 22 68/35 (46) 97 03/16/20 02:30 67 22 68/35 (46) 97 03/16/20 02:15 62 22 97/55 (69) 91 03/16/20 02:00 104/55 03/16/20 02:00 22 104/55 Mechanical Ventilator 100 03/16/20 02:00 22 Mechanical Ventilator 100 03/16/20 02:00 59 23 104/55 (71) 97 03/16/20 01:45 62 21 105/60 (75) 99 03/16/20 01:30 64 22 103/59 (74) 94 03/16/20 01:15 67 19 96/56 (69) 95 03/16/20 01:12 89 24 100 03/16/20 01:08 91/46 03/16/20 01:08 22 91/46 Mechanical Ventilator 100 03/16/20 01:00 65 22 91/46 (61) 95 03/16/20 01:00 96/56 03/16/20 01:00 22 96/56 Mechanical Ventilator 100 03/16/20 01:00 22 Mechanical Ventilator 100 03/16/20 00:45 67 21 94/50 (65) 93 03/16/20 00:30 65 22 90/51 (64) 96 03/16/20 00:15 65 22 93/51 (65) 95 03/16/20 00:00 66 22 100/56 (71) 96 03/16/20 00:00 Mechanical Ventilator 03/16/20 00:00 100 03/16/20 00:00 93/51 03/16/20 00:00 22 93/51 Mechanical Ventilator 100 03/16/20 00:00 22 Mechanical Ventilator 100 03/16/20 00:00 65 03/15/20 23:45 62 22 91/54 (66) 98 03/15/20 23:30 67 22 100/50 (67) 95 03/15/20 23:20 100 23 100 03/15/20 23:15 65 22 90/52 (65) 98 03/15/20 23:00 90/52 03/15/20 23:00 22 90/52 Mechanical Ventilator 100 03/15/20 23:00 22 Mechanical Ventilator 100 03/15/20 23:00 67 17 105/59 (74) 99 03/15/20 22:45 63 13 96/57 (70) 99 03/15/20 22:30 60 22 92/46 (61) 100 03/15/20 22:15 64 22 99/52 (68) 100 03/15/20 22:00 62 22 100/56 (71) 100 03/15/20 22:00 99/52 03/15/20 22:00 20 99/52 Mechanical Ventilator 100 03/15/20 22:00 20 Mechanical Ventilator 100 03/15/20 21:45 20 100/56 Mechanical Ventilator 100 03/15/20 21:45 72 21 107/59 (75) 99 03/15/20 21:30 63 19 105/62 (76) 99 03/15/20 21:30 20 107/59 Mechanical Ventilator 100 03/15/20 21:17 99.0 03/15/20 21:16 112/65 03/15/20 21:15 20 105/62 Mechanical Ventilator 100 03/15/20 21:15 63 3 101/61 (74) 99 03/15/20 21:00 100 03/15/20 21:00 20 116/65 Mechanical Ventilator 100 03/15/20 21:00 20 Mechanical Ventilator 100 03/15/20 21:00 74 23 112/65 (81) 95 03/15/20 20:59 100 22 100 03/15/20 20:45 20 100/46 Mechanical Ventilator 100 03/15/20 20:45 67 22 100/56 (71) 100 03/15/20 20:30 22 100/56 Mechanical Ventilator 100 03/15/20 20:30 22 Mechanical Ventilator 100 03/15/20 20:30 68 22 99/58 (72) 100 03/15/20 20:15 77 28 67/51 (56) 100 03/15/20 20:00 99.0 79 22 96/68 (77) 100 03/15/20 20:00 Mechanical Ventilator 03/15/20 20:00 22 67/51 Mechanical Ventilator 100 03/15/20 20:00 69 03/15/20 20:00 100 03/15/20 19:45 69 22 91/54 (66) 100 03/15/20 19:30 70 22 95/50 (65) 100 03/15/20 19:00 22 76/43 Mechanical Ventilator 100 03/15/20 19:00 76/43 03/15/20 19:00 74 22 76/43 (54) 100 03/15/20 18:58 100 22 100 03/15/20 18:30 77 22 91/52 (65) 100 03/15/20 18:15 84 22 105/63 (77) 97 03/15/20 18:00 98.5 94 22 163/79 (107) 94 03/15/20 18:00 100 03/15/20 18:00 22 135/98 100 03/15/20 18:00 163/79 03/15/20 17:56 98 22 93 Mechanical Ventilator 100 03/15/20 17:49 98 22 100 03/15/20 17:30 77 17 105/45 (65) 93 03/15/20 17:00 77 17 108/53 (71) 82 03/15/20 17:00 108/53 03/15/20 16:30 69 26 105/42 (63) 86 03/15/20 16:00 100.0 74 18 98/31 (53) 89 03/15/20 16:00 74 03/15/20 16:00 98/31 03/15/20 16:00 Non-Rebreather 15.0 03/15/20 15:00 74 19 98/43 (61) 93 03/15/20 15:00 98/43 03/15/20 14:30 77 18 101/46 (64) 94 03/15/20 14:00 73 27 97/44 (61) 84 03/15/20 14:00 97/44 03/15/20 13:30 79 20 113/57 (75) 93 03/15/20 13:00 113/57 03/15/20 13:00 75 25 90/34 (52) 91 03/15/20 12:30 81 17 104/48 (66) 87 03/15/20 12:15 72 22 90/52 (65) 91 03/15/20 12:00 Non-Rebreather 15.0 03/15/20 12:00 109/53 03/15/20 12:00 99.1 78 24 109/53 (71) 91 03/15/20 11:49 78 03/15/20 11:30 73 20 106/45 (65) 93 03/15/20 11:00 76 20 60/42 (48) 87 03/15/20 11:00 60/42 03/15/20 10:30 81 22 111/56 (74) 85 Intake and Output 03/15/20 03/16/20 19:00 07:00 Intake Total 751.423 ml 1831.321 ml Output Total 715 ml 150 ml Balance 36.423 ml 1681.321 ml IV Total 751.423 ml 1811.321 ml Tube Feeding 20 ml Output Urine Total 715 ml 150 ml Laboratory Tests 03/15/20 15:56: Arterial Blood pH 7.416, Arterial Blood Partial Pressure CO2 57.4*H, Arterial Blood Partial Pressure O2 50.3L, Arterial Blood HCO3 36.1H, Arterial Blood Oxygen Saturation 83.3*L, Arterial Blood Base Excess 10.0*H, Joaquin Test N/a 03/15/20 18:39: Arterial Blood pH 7.450, Arterial Blood Partial Pressure CO2 51.6H, Arterial Blood Partial Pressure O2 110.9H, Arterial Blood HCO3 35.5H, Arterial Blood Oxygen Saturation 98.1, Arterial Blood Base Excess 10.2*H, Joaquin Test Positive 03/16/20 04:54: White Blood Count 13.1#H, Red Blood Count 3.24L, Hemoglobin 10.8L, Hematocrit 32.3L, Mean Corpuscular Volume 100H, Mean Corpuscular Hemoglobin 33.5H, Mean Corpuscular Hemoglobin Concent 33.6, Red Cell Distribution Width 16.9H, Platelet Count 118L, Mean Platelet Volume 6.6, Neutrophils (%) (Auto) 75.1H, Lymphocytes (%) (Auto) 13.6L, Monocytes (%) (Auto) 5.2, Eosinophils (%) (Auto) 5.4H, Basophils (%) (Auto) 0.7, Sodium Level 132L, Potassium Level 3.5, Chloride Level 95L, Carbon Dioxide Level 34H, Anion Gap 3L, Blood Urea Nitrogen 8, Creatinine 0.9, Estimat Glomerular Filtration Rate > 60, Glucose Level 140H, Calcium Level 7.9L, Magnesium Level 1.9, Total Bilirubin 1.7H, Direct Bilirubin 0.8H, Aspartate Amino Transf (AST/SGOT) 73H, Alanine Aminotransferase (ALT/SGPT ) 10L, Alkaline Phosphatase 105, Total Protein 8.3H, Albumin 1.8L, Globulin 6.5 , Albumin/Globulin Ratio 0.3L, Triglycerides Level 116 03/16/20 07:22: Arterial Blood pH 7.401, Arterial Blood Partial Pressure CO2 54.4H, Arterial Blood Partial Pressure O2 72.6L, Arterial Blood HCO3 33.0H, Arterial Blood Oxygen Saturation 94.0L, Arterial Blood Base Excess 7.0H, Joaquin Test Positive Height (Feet): 5 Height (Inches): 1.00 Weight (Pounds): 239 General Appearance: lethargic EENT: normal ENT inspection Neck: supple Cardiovascular: tachycardia Respiratory/Chest: decreased breath sounds Abdomen: normal bowel sounds, non tender, soft Extremities: non-tender Tam Spicer MD Mar 16, 2020 10:10
[2020-03-16] MEDS: Vasopressin 100 UNITS in NS 95 ML IV PRN (10:31)
--- NOTE | 2020-03-16 10:38 | Infectious Diseases Prog Note ---
Assessment/Plan Assessment/Plan IMPRESSION: 1. Bilateral leg cellulitis,Pseudomonas in culture 2. Anemia. 3. Hypoxemia 4. Thrombocytopenia. 5. Homeless 6. Morbid obesity. 7. Cirrhosis 8. COVID19 pneumonia Positive03/07-03/12 9. Hepatitis C Worsening LFT RECOMMENDATION: Will f/u COVID19 test Finished Plaquenil course Change Cefepime to Meropenem Continue Zithromax Sputum culture Negative VQ scan Case was D/W pharmacy Subjective ROS Limited/Unobtainable: Yes Constitutional: Reports: fever, other - T=100.2 Respiratory: Reports: other - intubated yesterday Cardiovascular: Reports: other - on Levophed Allergies: Coded Allergies: No Known Allergies (Unverified , 02/29/20) Objective Vital Signs Last 24 Hour Vital Signs Date Time Temp Pulse Resp B/P (MAP) Pulse Ox O2 Delivery O2 Flow Rate FiO2 03/16/20 10:00 85/34 03/16/20 09:30 59 22 89/39 (56) 96 03/16/20 09:00 62 22 91/44 (60) 95 03/16/20 08:40 22 98/46 Mechanical Ventilator 100 03/16/20 08:30 64 22 98/46 (63) 98 03/16/20 08:00 Mechanical Ventilator 03/16/20 08:00 100 03/16/20 08:00 100.2 62 22 97/43 (61) 96 03/16/20 07:30 63 22 96/43 (60) 97 03/16/20 07:08 97 22 100 03/16/20 07:00 103/53 03/16/20 07:00 22 103/53 Mechanical Ventilator 100 03/16/20 07:00 22 Mechanical Ventilator 100 03/16/20 07:00 60 103/50 (67) 03/16/20 06:45 59 22 103/50 (67) 97 03/16/20 06:30 58 22 102/48 (66) 96 03/16/20 06:15 58 22 99/50 (66) 95 03/16/20 06:00 58 22 102/48 (66) 95 03/16/20 06:00 102/48 03/16/20 06:00 22 102/48 Mechanical Ventilator 100 03/16/20 06:00 22 Mechanical Ventilator 100 03/16/20 05:45 58 22 102/49 (66) 96 03/16/20 05:30 58 22 99/51 (67) 96 03/16/20 05:23 102/49 03/16/20 05:23 22 102/49 Mechanical Ventilator 100 03/16/20 05:15 22 99/51 Mechanical Ventilator 100 03/16/20 05:15 59 22 102/49 (66) 96 03/16/20 05:00 102/47 03/16/20 05:00 22 102/47 Mechanical Ventilator 100 03/16/20 05:00 22 Mechanical Ventilator 100 03/16/20 05:00 59 22 102/47 (65) 98 03/16/20 04:45 59 22 98/43 (61) 97 03/16/20 04:45 22 102/47 Mechanical Ventilator 100 03/16/20 04:42 92 26 100 03/16/20 04:33 68 21 106/54 (71) 91 03/16/20 04:30 22 106/54 Mechanical Ventilator 100 03/16/20 04:30 67 22 89/56 (67) 87 03/16/20 04:15 22 89/56 Mechanical Ventilator 100 03/16/20 04:15 62 22 110/54 (72) 92 03/16/20 04:00 100 03/16/20 04:00 66 03/16/20 04:00 110/54 03/16/20 04:00 22 110/54 Mechanical Ventilator 100 03/16/20 04:00 22 Mechanical Ventilator 100 03/16/20 04:00 Mechanical Ventilator 03/16/20 04:00 98.9 59 22 111/48 (69) 91 03/16/20 03:45 22 111/48 Mechanical Ventilator 100 03/16/20 03:45 58 22 114/51 (72) 95 03/16/20 03:30 22 114/51 Mechanical Ventilator 100 03/16/20 03:30 57 22 113/48 (69) 96 03/16/20 03:22 57 22 104/50 (68) 96 03/16/20 03:15 22 104/50 Mechanical Ventilator 100 03/16/20 03:15 60 21 81/37 (52) 97 03/16/20 03:00 63 22 79/40 (53) 98 03/16/20 03:00 82/37 03/16/20 03:00 22 82/37 Mechanical Ventilator 100 03/16/20 03:00 22 Mechanical Ventilator 100 03/16/20 02:57 91 24 100 03/16/20 02:54 66 22 72/31 (45) 96 03/16/20 02:51 67 22 68/35 (46) 97 03/16/20 02:30 67 22 68/35 (46) 97 03/16/20 02:15 62 22 97/55 (69) 91 03/16/20 02:00 104/55 03/16/20 02:00 22 104/55 Mechanical Ventilator 100 03/16/20 02:00 22 Mechanical Ventilator 100 03/16/20 02:00 59 23 104/55 (71) 97 03/16/20 01:45 62 21 105/60 (75) 99 03/16/20 01:30 64 22 103/59 (74) 94 03/16/20 01:15 67 19 96/56 (69) 95 03/16/20 01:12 89 24 100 03/16/20 01:08 91/46 03/16/20 01:08 22 91/46 Mechanical Ventilator 100 03/16/20 01:00 65 22 91/46 (61) 95 03/16/20 01:00 96/56 03/16/20 01:00 22 96/56 Mechanical Ventilator 100 03/16/20 01:00 22 Mechanical Ventilator 100 03/16/20 00:45 67 21 94/50 (65) 93 03/16/20 00:30 65 22 90/51 (64) 96 03/16/20 00:15 65 22 93/51 (65) 95 03/16/20 00:00 66 22 100/56 (71) 96 03/16/20 00:00 Mechanical Ventilator 03/16/20 00:00 100 03/16/20 00:00 93/51 03/16/20 00:00 22 93/51 Mechanical Ventilator 100 03/16/20 00:00 22 Mechanical Ventilator 100 03/16/20 00:00 65 03/15/20 23:45 62 22 91/54 (66) 98 03/15/20 23:30 67 22 100/50 (67) 95 03/15/20 23:20 100 23 100 03/15/20 23:15 65 22 90/52 (65) 98 03/15/20 23:00 90/52 03/15/20 23:00 22 90/52 Mechanical Ventilator 100 03/15/20 23:00 22 Mechanical Ventilator 100 03/15/20 23:00 67 17 105/59 (74) 99 03/15/20 22:45 63 13 96/57 (70) 99 03/15/20 22:30 60 22 92/46 (61) 100 03/15/20 22:15 64 22 99/52 (68) 100 03/15/20 22:00 62 22 100/56 (71) 100 03/15/20 22:00 99/52 03/15/20 22:00 20 99/52 Mechanical Ventilator 100 03/15/20 22:00 20 Mechanical Ventilator 100 03/15/20 21:45 20 100/56 Mechanical Ventilator 100 03/15/20 21:45 72 21 107/59 (75) 99 03/15/20 21:30 63 19 105/62 (76) 99 03/15/20 21:30 20 107/59 Mechanical Ventilator 100 03/15/20 21:17 99.0 03/15/20 21:16 112/65 03/15/20 21:15 20 105/62 Mechanical Ventilator 100 03/15/20 21:15 63 3 101/61 (74) 99 03/15/20 21:00 100 03/15/20 21:00 20 116/65 Mechanical Ventilator 100 03/15/20 21:00 20 Mechanical Ventilator 100 03/15/20 21:00 74 23 112/65 (81) 95 03/15/20 20:59 100 22 100 03/15/20 20:45 20 100/46 Mechanical Ventilator 100 03/15/20 20:45 67 22 100/56 (71) 100 03/15/20 20:30 22 100/56 Mechanical Ventilator 100 03/15/20 20:30 22 Mechanical Ventilator 100 03/15/20 20:30 68 22 99/58 (72) 100 03/15/20 20:15 77 28 67/51 (56) 100 03/15/20 20:00 99.0 79 22 96/68 (77) 100 03/15/20 20:00 Mechanical Ventilator 03/15/20 20:00 22 67/51 Mechanical Ventilator 100 03/15/20 20:00 69 03/15/20 20:00 100 03/15/20 19:45 69 22 91/54 (66) 100 03/15/20 19:30 70 22 95/50 (65) 100 03/15/20 19:00 22 76/43 Mechanical Ventilator 100 03/15/20 19:00 76/43 03/15/20 19:00 74 22 76/43 (54) 100 03/15/20 18:58 100 22 100 03/15/20 18:30 77 22 91/52 (65) 100 03/15/20 18:15 84 22 105/63 (77) 97 03/15/20 18:00 98.5 94 22 163/79 (107) 94 03/15/20 18:00 100 03/15/20 18:00 22 135/98 100 03/15/20 18:00 163/79 03/15/20 17:56 98 22 93 Mechanical Ventilator 100 03/15/20 17:49 98 22 100 03/15/20 17:30 77 17 105/45 (65) 93 03/15/20 17:00 77 17 108/53 (71) 82 03/15/20 17:00 108/53 03/15/20 16:30 69 26 105/42 (63) 86 03/15/20 16:00 100.0 74 18 98/31 (53) 89 03/15/20 16:00 74 03/15/20 16:00 98/31 03/15/20 16:00 Non-Rebreather 15.0 03/15/20 15:00 74 19 98/43 (61) 93 03/15/20 15:00 98/43 03/15/20 14:30 77 18 101/46 (64) 94 03/15/20 14:00 73 27 97/44 (61) 84 03/15/20 14:00 97/44 03/15/20 13:30 79 20 113/57 (75) 93 03/15/20 13:00 113/57 03/15/20 13:00 75 25 90/34 (52) 91 03/15/20 12:30 81 17 104/48 (66) 87 03/15/20 12:15 72 22 90/52 (65) 91 03/15/20 12:00 Non-Rebreather 15.0 03/15/20 12:00 109/53 03/15/20 12:00 99.1 78 24 109/53 (71) 91 03/15/20 11:49 78 03/15/20 11:30 73 20 106/45 (65) 93 03/15/20 11:00 76 20 60/42 (48) 87 03/15/20 11:00 60/42 Height (Feet): 5 Height (Inches): 1.00 Weight (Pounds): 239 General Appearance: other - obese HEENT: mucous membranes moist Respiratory/Chest: other - on ventilator, prone position Cardiovascular: bradycardia Abdomen: soft, non tender Extremities: other - legs edema Skin: ulcers Neurologic/Psychiatric: other - sedated Laboratory Tests Test 03/15/20 15:56 03/15/20 18:39 03/16/20 04:54 03/16/20 07:22 Arterial Blood pH 7.416 (7.350-7.450) 7.450 (7.350-7.450) 7.401 (7.350-7.450) Arterial Blood Partial Pressure CO2 57.4 mmHg (35.0-45.0) *H 51.6 mmHg (35.0-45.0) H 54.4 mmHg (35.0-45.0) H Arterial Blood Partial Pressure O2 50.3 mmHg (75.0-100.0) L 110.9 mmHg (75.0-100.0) H 72.6 mmHg (75.0-100.0) L Arterial Blood HCO3 36.1 mmol/L (22.0-26.0) H 35.5 mmol/L (22.0-26.0) H 33.0 mmol/L (22.0-26.0) H Arterial Blood Oxygen Saturation 83.3 % (95-100) *L 98.1 % (95-100) 94.0 % (95-100) L Arterial Blood Base Excess 10.0 (-2-2) *H 10.2 (-2-2) *H 7.0 (-2-2) H Joaquin Test N/a Positive Positive White Blood Count 13.1 K/UL (4.8-10.8) #H Red Blood Count 3.24 M/UL (4.20-5.40) L Hemoglobin 10.8 G/DL (12.0-16.0) L Hematocrit 32.3 % (37.0-47.0) L Mean Corpuscular Volume 100 FL (80-99) H Mean Corpuscular Hemoglobin 33.5 PG (27.0-31.0) H Mean Corpuscular Hemoglobin Concent 33.6 G/DL (32.0-36.0) Red Cell Distribution Width 16.9 % (11.6-14.8) H Platelet Count 118 K/UL (150-450) L Mean Platelet Volume 6.6 FL (6.5-10.1) Neutrophils (%) (Auto) 75.1 % (45.0-75.0) H Lymphocytes (%) (Auto) 13.6 % (20.0-45.0) L Monocytes (%) (Auto) 5.2 % (1.0-10.0) Eosinophils (%) (Auto) 5.4 % (0.0-3.0) H Basophils (%) (Auto) 0.7 % (0.0-2.0) Sodium Level 132 MMOL/L (136-145) L Potassium Level 3.5 MMOL/L (3.5-5.1) Chloride Level 95 MMOL/L (98-107) L Carbon Dioxide Level 34 MMOL/L (21-32) H Anion Gap 3 mmol/L (5-15) L Blood Urea Nitrogen 8 mg/dL (7-18) Creatinine 0.9 MG/DL (0.55-1.30) Estimat Glomerular Filtration Rate > 60 mL/min (>60) Glucose Level 140 MG/DL (74-106) H Calcium Level 7.9 MG/DL (8.5-10.1) L Magnesium Level 1.9 MG/DL (1.8-2.4) Total Bilirubin 1.7 MG/DL (0.2-1.0) H Direct Bilirubin 0.8 MG/DL (0.0-0.3) H Aspartate Amino Transf (AST/SGOT) 73 U/L (15-37) H Alanine Aminotransferase (ALT/SGPT) 10 U/L (12-78) L Alkaline Phosphatase 105 U/L (46-116) Total Protein 8.3 G/DL (6.4-8.2) H Albumin 1.8 G/DL (3.4-5.0) L Globulin 6.5 g/dL Albumin/Globulin Ratio 0.3 (1.0-2.7) L Triglycerides Level 116 MG/DL (30-150) Current Medications Medications (Trade) Dose Ordered Sig/Dolores Route PRN Reason Start Time Stop Time Status Last Admin Dose Admin Acetaminophen (Tylenol) 650 mg Q4H PRN ORAL Mild Pain (Pain Scale 1-3) 03/13/20 14:53 04/12/20 14:52 03/14/20 08:58 Acetaminophen (Tylenol) 650 mg Q4H PRN ORAL Temp >100 03/13/20 14:53 04/12/20 14:52 Azithromycin (Zithromax) 500 mg DAILY ORAL 03/14/20 09:00 03/20/20 10:59 03/16/20 08:37 Cefepime HCl 1 gm/ Dextrose 55 ml @ 110 mls/hr EVERY 12 HOURS IVPB 03/13/20 21:00 03/20/20 10:59 03/16/20 08:37 Chlorhexidine Gluconate (Lucretia-Hex 2%) 1 applic DAILY@2000 TOPIC 03/13/20 20:00 06/11/20 19:59 03/15/20 19:45 Dextrose (Dextrose 50%) 25 ml Q30M PRN IV Hypoglycemia 03/16/20 09:30 06/14/20 09:29 Dextrose (Dextrose 50%) 50 ml Q30M PRN IV Hypoglycemia 03/16/20 09:30 06/14/20 09:29 Dextrose/Sodium Chloride 1,000 ml @ 60 mls/hr [id number] IV 03/16/20 10:00 04/15/20 09:59 03/16/20 10:00 Diphenhydramine HCl (Benadryl) 25 mg Q4H PRN ORAL moderate itching 03/13/20 14:54 04/12/20 14:53 Diphenhydramine HCl (Benadryl) 50 mg Q4H PRN ORAL SEVERE ITCHING 03/13/20 14:53 04/12/20 14:52 Enoxaparin Sodium (Lovenox) 40 mg DAILY SUBQ 03/14/20 09:00 06/10/20 08:59 03/16/20 08:38 Fentanyl Citrate 2500 mcg/Sodium Chloride 250 ml @ 0 mls/hr Q24H IV 03/15/20 18:30 03/22/20 18:29 03/15/20 20:30 Furosemide (Lasix) 20 mg BID IV 03/15/20 09:00 04/14/20 08:59 03/16/20 08:37 Insulin Aspart (NovoLOG) Q6HR SUBQ 03/16/20 12:00 06/14/20 11:59 Magnesium Sulfate 100 ml @ 100 mls/hr ONCE ONCE IVPB 03/16/20 14:00 03/16/20 14:59 Mirtazapine (Remeron) 7.5 mg BEDTIME PRN ORAL SLEEP 03/13/20 14:55 06/11/20 14:54 Norepinephrine Bitartrate 8 mg/ Dextrose 508 ml @ 0 mls/hr Q24H IV 03/15/20 21:00 04/14/20 20:59 03/16/20 10:00 Potassium Chloride 100 ml @ 50 mls/hr Q2H IVPB 03/16/20 10:00 03/16/20 13:59 03/16/20 09:57 Potassium Chloride (K-Dur) 20 meq BID ORAL 03/14/20 09:00 06/11/20 08:59 03/16/20 08:37 Propofol 100 ml @ 0 mls/hr Q24H IV 03/15/20 18:00 03/17/20 17:59 03/16/20 08:40 Vasopressin 100 units/Sodium Chloride 100 ml @ 0 mls/hr Q24H PRN IV For hypotension 03/16/20 11:00 04/15/20 10:59 Jonathon Shah MD Mar 16, 2020 10:38
[2020-03-16] MEDS: NovoLOG Insulin Flexpen SUBQ SCH ×3 (12:36→23:13)
--- NOTE | 2020-03-16 12:52 | Hematology/Onc Progress Note ---
Assessment/Plan Assessment/Plan Assessment and Recs # Pancytopenia -- multiple etiologies could be related to underlying liver disease, medication-induced, infection versus viral syndrome versus underlying bone marrow cause, in this case, has severe liver disease and cirrhosis, HEP C++ , also cellulitis --> peripheral smear has been ordered and does not show significant abnormalities and none noted --> Medications have been reviewed --> Continue to monitor for improvement, trend cbc --> Hep panel and HIV are both negative --> US abd ordered to r/o cirrhosis and hepatosplenomegaly ->CIRRHOSIS IS NOTED , LARGE SPLEEN --> reverse isolation if ANC is <2000 --> Give neupogen if ANC <1000 --> Transfuse if hgb <7, with 1 unit prbc --> anemia panel ordered as well-->CW acd --> hgb trend 7-->7.1-->8.4-->8.2 -->8.7-->9.9 --> plt 145k-->152-->162k-->149k --> wbc 3.4-->3.5->3.9->4.4 --> abx: sameer/rifaximin # Cellulitis of the lower extremities --> continue abx as needed as per id --> Started on IV antibiotics-->azithro/cefepime --> as per surg recs, wound care # Ftt --> remains on mirtazapine # Elevated LFTS --> as per gi --> due to cirrhosis # Dvt ppx lovenox sq The timing of this note does not necessarily reflect the time of the patient was seen. Greatly appreciate consultation. Subjective Constitutional: Denies: no symptoms, chills, fever, malaise, weakness, other HEENT: Denies: no symptoms, eye pain, blurred vision, tearing, double vision, ear pain, ear discharge, nose pain, nose congestion, throat pain, throat swelling, mouth pain, mouth swelling, other Cardiovascular: Denies: no symptoms, chest pain, edema, irregular heart rate, lightheadedness, palpitations, syncope, other Respiratory: Denies: no symptoms, cough, shortness of breath, SOB with excertion, SOB at rest, sputum, wheezing, other Gastrointestinal/Abdominal: Denies: no symptoms, abdomen distended, abdominal pain, black stools, tarry stools, blood in stool, constipated, diarrhea, difficulty swallowing, nausea, poor appetite, poor fluid intake, rectal bleeding , vomiting, other Genitourinary: Denies: no symptoms, burning, discharge, frequency, flank pain, hematuria, incontinence, pain, urgency, other Neurologic/Psychiatric: Denies: no symptoms, anxiety, depressed, emotional problems, headache, numbness, paresthesia, pre-existing deficit, seizure, tingling, tremors, weakness, other Endocrine: Denies: no symptoms, excessive sweating, flushing, intolerance to cold, intolerance to heat, increased hunger, increased thirst, increased urine, unexplained weight gain, unexplained weight loss, other Allergies: Coded Allergies: No Known Allergies (Unverified , 02/29/20) Subjective 03/02 no events, no bleeding, hgb 7.1, no hemolysis 03/03 s/p blood, hgb improved to 8.4, stool ob negtive, on abx 03/05 asleep, no acute distress, hgb 8.2 03/06 remains comfortable, on abx, plt remains low 03/07 is on nonrebreather, no night sweats, labs are noted 03/08 labs reviewed, being diuresed, seen by cards, psych, labs noted 03/09 lasix adjusted, wbc remains low at 3.9, reviewed meds, smear 03/10 no night sweats, no bleeding, labs noted, smear noted 03/12 labs noted, none completed, have reordered, cellulitis better 03/13 is continuing with chest pain, cards aware, no further studies until covid neg 03/14 labs noted, no bleeding, diuresis as needed, hgb stable 03/15 alseep is cooperative, no bleeding, meds noted 03/16 no bleeding or chills, hgb 10.8, no night sweats, no major events Objective Objective Current Medications Medications (Trade) Dose Ordered Sig/Dolores Route PRN Reason Start Time Stop Time Status Last Admin Dose Admin Acetaminophen (Tylenol) 650 mg Q4H PRN ORAL Mild Pain (Pain Scale 1-3) 03/13/20 14:53 04/12/20 14:52 03/14/20 08:58 Acetaminophen (Tylenol) 650 mg Q4H PRN ORAL Temp >100 03/13/20 14:53 04/12/20 14:52 Azithromycin (Zithromax) 500 mg DAILY ORAL 03/14/20 09:00 03/20/20 10:59 03/16/20 08:37 Chlorhexidine Gluconate (Lcuretia-Hex 2%) 1 applic DAILY@2000 TOPIC 03/13/20 20:00 06/11/20 19:59 03/15/20 19:45 Dextrose (Dextrose 50%) 25 ml Q30M PRN IV Hypoglycemia 03/16/20 09:30 06/14/20 09:29 Dextrose (Dextrose 50%) 50 ml Q30M PRN IV Hypoglycemia 03/16/20 09:30 06/14/20 09:29 Dextrose/Sodium Chloride 1,000 ml @ 60 mls/hr [id number] IV 03/16/20 10:00 04/15/20 09:59 03/16/20 10:00 Diphenhydramine HCl (Benadryl) 25 mg Q4H PRN ORAL moderate itching 03/13/20 14:54 04/12/20 14:53 Diphenhydramine HCl (Benadryl) 50 mg Q4H PRN ORAL SEVERE ITCHING 03/13/20 14:53 04/12/20 14:52 Enoxaparin Sodium (Lovenox) 40 mg DAILY SUBQ 03/14/20 09:00 06/10/20 08:59 03/16/20 08:38 Fentanyl Citrate 2500 mcg/Sodium Chloride 250 ml @ 0 mls/hr Q24H IV 03/15/20 18:30 03/22/20 18:29 03/15/20 20:30 Furosemide (Lasix) 20 mg BID IV 03/15/20 09:00 04/14/20 08:59 03/16/20 08:37 Insulin Aspart (NovoLOG) Q6HR SUBQ 03/16/20 12:00 06/14/20 11:59 03/16/20 12:36 Magnesium Sulfate 100 ml @ 100 mls/hr ONCE ONCE IVPB 03/16/20 14:00 03/16/20 14:59 Meropenem 1 gm/ Sodium Chloride 55 ml @ 110 mls/hr Q8HR IVPB 03/16/20 14:00 03/21/20 13:59 Mirtazapine (Remeron) 7.5 mg BEDTIME PRN ORAL SLEEP 03/13/20 14:55 06/11/20 14:54 Norepinephrine Bitartrate 8 mg/ Dextrose 508 ml @ 0 mls/hr Q24H IV 03/15/20 21:00 04/14/20 20:59 03/16/20 10:00 Potassium Chloride 100 ml @ 50 mls/hr Q2H IVPB 03/16/20 10:00 03/16/20 13:59 03/16/20 12:11 Potassium Chloride (K-Dur) 20 meq BID ORAL 03/14/20 09:00 06/11/20 08:59 03/16/20 08:37 Propofol 100 ml @ 0 mls/hr Q24H IV 03/15/20 18:00 03/17/20 17:59 03/16/20 12:10 Vasopressin 100 units/Sodium Chloride 100 ml @ 0 mls/hr Q24H PRN IV For hypotension 03/16/20 11:00 04/15/20 10:59 03/16/20 10:31 Last 24 Hour Vital Signs Date Time Temp Pulse Resp B/P (MAP) Pulse Ox O2 Delivery O2 Flow Rate FiO2 03/16/20 12:30 57 22 87/54 (65) 74 03/16/20 12:15 58 22 91/51 (64) 73 03/16/20 12:10 22 91/49 Mechanical Ventilator 100 03/16/20 12:00 100 03/16/20 12:00 99.8 56 22 91/49 (63) 80 03/16/20 11:45 58 22 91/47 (62) 67 03/16/20 11:30 55 22 96/50 (65) 77 03/16/20 11:09 55 22 100 03/16/20 11:00 54 22 106/59 (75) 92 03/16/20 11:00 109/64 03/16/20 11:00 22 109/64 Mechanical Ventilator 100 03/16/20 11:00 22 Mechanical Ventilator 100 03/16/20 10:30 62 22 89/42 (58) 92 03/16/20 10:15 60 22 89/44 (59) 97 03/16/20 10:07 60 22 81/38 (52) 93 03/16/20 10:00 62 22 68/27 (41) 93 03/16/20 10:00 85/34 03/16/20 10:00 22 81/38 Mechanical Ventilator 100 03/16/20 10:00 22 Mechanical Ventilator 100 03/16/20 09:30 59 22 89/39 (56) 96 03/16/20 09:00 62 22 91/44 (60) 95 03/16/20 09:00 91/44 03/16/20 09:00 22 91/44 Mechanical Ventilator 100 03/16/20 09:00 22 Mechanical Ventilator 100 03/16/20 08:40 22 98/46 Mechanical Ventilator 100 03/16/20 08:30 64 22 98/46 (63) 98 03/16/20 08:00 Mechanical Ventilator 03/16/20 08:00 100 03/16/20 08:00 97/43 03/16/20 08:00 22 97/43 Mechanical Ventilator 100 03/16/20 08:00 22 Mechanical Ventilator 100 03/16/20 08:00 63 03/16/20 08:00 100.2 62 22 97/43 (61) 96 03/16/20 07:30 63 22 96/43 (60) 97 03/16/20 07:08 97 22 100 03/16/20 07:00 103/53 03/16/20 07:00 22 103/53 Mechanical Ventilator 100 03/16/20 07:00 22 Mechanical Ventilator 100 03/16/20 07:00 60 103/50 (67) 03/16/20 06:45 59 22 103/50 (67) 97 03/16/20 06:30 58 22 102/48 (66) 96 03/16/20 06:15 58 22 99/50 (66) 95 03/16/20 06:00 58 22 102/48 (66) 95 03/16/20 06:00 102/48 03/16/20 06:00 22 102/48 Mechanical Ventilator 100 03/16/20 06:00 22 Mechanical Ventilator 100 03/16/20 05:45 58 22 102/49 (66) 96 03/16/20 05:30 58 22 99/51 (67) 96 03/16/20 05:23 102/49 03/16/20 05:23 22 102/49 Mechanical Ventilator 100 03/16/20 05:15 22 99/51 Mechanical Ventilator 100 03/16/20 05:15 59 22 102/49 (66) 96 03/16/20 05:00 102/47 03/16/20 05:00 22 102/47 Mechanical Ventilator 100 03/16/20 05:00 22 Mechanical Ventilator 100 03/16/20 05:00 59 22 102/47 (65) 98 03/16/20 04:45 59 22 98/43 (61) 97 03/16/20 04:45 22 102/47 Mechanical Ventilator 100 03/16/20 04:42 92 26 100 03/16/20 04:33 68 21 106/54 (71) 91 03/16/20 04:30 22 106/54 Mechanical Ventilator 100 03/16/20 04:30 67 22 89/56 (67) 87 03/16/20 04:15 22 89/56 Mechanical Ventilator 100 03/16/20 04:15 62 22 110/54 (72) 92 03/16/20 04:00 100 03/16/20 04:00 66 03/16/20 04:00 110/54 03/16/20 04:00 22 110/54 Mechanical Ventilator 100 03/16/20 04:00 22 Mechanical Ventilator 100 03/16/20 04:00 Mechanical Ventilator 03/16/20 04:00 98.9 59 22 111/48 (69) 91 03/16/20 03:45 22 111/48 Mechanical Ventilator 100 03/16/20 03:45 58 22 114/51 (72) 95 03/16/20 03:30 22 114/51 Mechanical Ventilator 100 03/16/20 03:30 57 22 113/48 (69) 96 03/16/20 03:22 57 22 104/50 (68) 96 03/16/20 03:15 22 104/50 Mechanical Ventilator 100 03/16/20 03:15 60 21 81/37 (52) 97 03/16/20 03:00 63 22 79/40 (53) 98 03/16/20 03:00 82/37 03/16/20 03:00 22 82/37 Mechanical Ventilator 100 03/16/20 03:00 22 Mechanical Ventilator 100 03/16/20 02:57 91 24 100 03/16/20 02:54 66 22 72/31 (45) 96 03/16/20 02:51 67 22 68/35 (46) 97 03/16/20 02:30 67 22 68/35 (46) 97 03/16/20 02:15 62 22 97/55 (69) 91 03/16/20 02:00 104/55 03/16/20 02:00 22 104/55 Mechanical Ventilator 100 03/16/20 02:00 22 Mechanical Ventilator 100 03/16/20 02:00 59 23 104/55 (71) 97 03/16/20 01:45 62 21 105/60 (75) 99 03/16/20 01:30 64 22 103/59 (74) 94 03/16/20 01:15 67 19 96/56 (69) 95 03/16/20 01:12 89 24 100 03/16/20 01:08 91/46 03/16/20 01:08 22 91/46 Mechanical Ventilator 100 03/16/20 01:00 65 22 91/46 (61) 95 03/16/20 01:00 96/56 03/16/20 01:00 22 96/56 Mechanical Ventilator 100 03/16/20 01:00 22 Mechanical Ventilator 100 03/16/20 00:45 67 21 94/50 (65) 93 03/16/20 00:30 65 22 90/51 (64) 96 03/16/20 00:15 65 22 93/51 (65) 95 03/16/20 00:00 66 22 100/56 (71) 96 03/16/20 00:00 Mechanical Ventilator 03/16/20 00:00 100 03/16/20 00:00 93/51 03/16/20 00:00 22 93/51 Mechanical Ventilator 100 03/16/20 00:00 22 Mechanical Ventilator 100 03/16/20 00:00 65 03/15/20 23:45 62 22 91/54 (66) 98 03/15/20 23:30 67 22 100/50 (67) 95 03/15/20 23:20 100 23 100 03/15/20 23:15 65 22 90/52 (65) 98 03/15/20 23:00 90/52 03/15/20 23:00 22 90/52 Mechanical Ventilator 100 03/15/20 23:00 22 Mechanical Ventilator 100 03/15/20 23:00 67 17 105/59 (74) 99 03/15/20 22:45 63 13 96/57 (70) 99 03/15/20 22:30 60 22 92/46 (61) 100 03/15/20 22:15 64 22 99/52 (68) 100 03/15/20 22:00 62 22 100/56 (71) 100 03/15/20 22:00 99/52 03/15/20 22:00 20 99/52 Mechanical Ventilator 100 03/15/20 22:00 20 Mechanical Ventilator 100 03/15/20 21:45 20 100/56 Mechanical Ventilator 100 03/15/20 21:45 72 21 107/59 (75) 99 03/15/20 21:30 63 19 105/62 (76) 99 03/15/20 21:30 20 107/59 Mechanical Ventilator 100 03/15/20 21:17 99.0 03/15/20 21:16 112/65 03/15/20 21:15 20 105/62 Mechanical Ventilator 100 03/15/20 21:15 63 3 101/61 (74) 99 03/15/20 21:00 100 03/15/20 21:00 20 116/65 Mechanical Ventilator 100 03/15/20 21:00 20 Mechanical Ventilator 100 03/15/20 21:00 74 23 112/65 (81) 95 03/15/20 20:59 100 22 100 03/15/20 20:45 20 100/46 Mechanical Ventilator 100 03/15/20 20:45 67 22 100/56 (71) 100 03/15/20 20:30 22 100/56 Mechanical Ventilator 100 03/15/20 20:30 22 Mechanical Ventilator 100 03/15/20 20:30 68 22 99/58 (72) 100 03/15/20 20:15 77 28 67/51 (56) 100 03/15/20 20:00 99.0 79 22 96/68 (77) 100 03/15/20 20:00 Mechanical Ventilator 03/15/20 20:00 22 67/51 Mechanical Ventilator 100 03/15/20 20:00 69 03/15/20 20:00 100 03/15/20 19:45 69 22 91/54 (66) 100 03/15/20 19:30 70 22 95/50 (65) 100 03/15/20 19:00 22 76/43 Mechanical Ventilator 100 03/15/20 19:00 76/43 03/15/20 19:00 74 22 76/43 (54) 100 03/15/20 18:58 100 22 100 03/15/20 18:30 77 22 91/52 (65) 100 03/15/20 18:15 84 22 105/63 (77) 97 03/15/20 18:00 98.5 94 22 163/79 (107) 94 03/15/20 18:00 100 03/15/20 18:00 22 135/98 100 03/15/20 18:00 163/79 03/15/20 17:56 98 22 93 Mechanical Ventilator 100 03/15/20 17:49 98 22 100 03/15/20 17:30 77 17 105/45 (65) 93 03/15/20 17:00 77 17 108/53 (71) 82 03/15/20 17:00 108/53 03/15/20 16:30 69 26 105/42 (63) 86 03/15/20 16:00 100.0 74 18 98/31 (53) 89 03/15/20 16:00 74 03/15/20 16:00 98/31 03/15/20 16:00 Non-Rebreather 15.0 03/15/20 15:00 74 19 98/43 (61) 93 03/15/20 15:00 98/43 03/15/20 14:30 77 18 101/46 (64) 94 03/15/20 14:00 73 27 97/44 (61) 84 03/15/20 14:00 97/44 03/15/20 13:30 79 20 113/57 (75) 93 03/15/20 13:00 113/57 03/15/20 13:00 75 25 90/34 (52) 91 03/15/20 12:30 81 17 104/48 (66) 87 03/15/20 12:15 72 22 90/52 (65) 91 03/15/20 12:00 Non-Rebreather 15.0 03/15/20 12:00 109/53 03/15/20 12:00 99.1 78 24 109/53 (71) 91 03/15/20 11:49 78 03/15/20 11:30 73 20 106/45 (65) 93 03/15/20 11:00 76 20 60/42 (48) 87 03/15/20 11:00 60/42 03/15/20 10:30 81 22 111/56 (74) 85 03/15/20 10:00 78 22 112/52 (72) 89 03/15/20 10:00 112/52 03/15/20 09:30 77 18 116/61 (79) 90 03/15/20 09:00 88/69 03/15/20 09:00 79 18 88/69 (75) 85 03/15/20 08:30 74 18 105/54 (71) 88 03/15/20 08:00 Non-Rebreather 15.0 03/15/20 08:00 108/59 03/15/20 08:00 99.0 74 18 108/59 (75) 87 03/15/20 07:48 70 03/15/20 07:30 73 18 102/43 (62) 88 03/15/20 07:00 70 96/41 (59) 91 03/15/20 07:00 109/51 03/15/20 06:45 72 107/50 (69) 92 03/15/20 06:30 72 99/45 (63) 90 03/15/20 06:00 67 109/40 (63) 90 03/15/20 06:00 109/40 03/15/20 05:45 73 111/56 (74) 93 03/15/20 05:30 75 18 111/56 (74) 89 03/15/20 05:15 69 27 102/55 (71) 90 03/15/20 05:03 97.9 03/15/20 05:00 70 23 99/51 (67) 90 03/15/20 05:00 102/55 03/15/20 04:45 72 17 108/55 (72) 95 03/15/20 04:30 70 18 104/54 (71) 97 03/15/20 04:15 71 17 113/54 (73) 100 03/15/20 04:00 98.3 72 15 116/57 (76) 97 03/15/20 04:00 69 03/15/20 04:00 116/57 03/15/20 04:00 Non-Rebreather 15.0 03/15/20 03:45 68 21 101/40 (60) 98 03/15/20 03:30 68 29 95/39 (57) 93 03/15/20 03:15 67 28 97/41 (59) 92 03/15/20 03:00 66 28 102/47 (65) 94 03/15/20 03:00 97/41 03/15/20 02:45 67 26 97/39 (58) 95 03/15/20 02:30 67 29 102/47 (65) 96 03/15/20 02:15 71 20 103/44 (63) 97 03/15/20 02:00 103/44 03/15/20 02:00 69 23 112/76 (88) 93 03/15/20 01:45 67 28 106/45 (65) 90 03/15/20 01:30 73 21 117/61 (79) 91 03/15/20 01:15 69 20 106/55 (72) 90 03/15/20 01:00 70 21 127/55 (79) 90 03/15/20 01:00 106/55 03/15/20 00:45 68 23 105/49 (67) 90 03/15/20 00:30 71 17 110/68 (82) 92 03/15/20 00:15 66 25 99/53 (68) 89 03/15/20 00:00 Non-Rebreather 15.0 03/15/20 00:00 70 03/15/20 00:00 97.9 73 18 95/47 (63) 90 03/14/20 23:55 73/46 03/14/20 23:45 71 27 83/45 (58) 89 03/14/20 23:00 73 21 108/60 (76) 90 03/14/20 22:00 99/60 03/14/20 21:45 71 27 99/56 (70) 94 03/14/20 21:30 70 24 99/59 (72) 96 03/14/20 21:19 77 19 96/64 (75) 84 03/14/20 21:15 74 19 88/55 (66) 97 03/14/20 21:00 74 23 96/35 (55) 98 03/14/20 21:00 88/55 03/14/20 20:45 74 18 97/54 (68) 98 03/14/20 20:40 98 Non-Rebreather 15.0 100 03/14/20 20:30 74 17 98/44 (62) 97 03/14/20 20:15 75 17 105/61 (76) 95 03/14/20 20:00 69 03/14/20 20:00 76 23 100/40 (60) 97 03/14/20 20:00 Non-Rebreather 15.0 03/14/20 20:00 105/61 03/14/20 19:45 64 25 112/63 (79) 96 03/14/20 19:30 62 22 101/62 (75) 92 03/14/20 19:00 122/53 03/14/20 19:00 65 26 114/51 (72) 90 03/14/20 18:00 72 19 130/61 (84) 91 03/14/20 18:00 116/64 03/14/20 17:30 67 20 127/61 (83) 99 03/14/20 17:00 69 19 134/80 (98) 97 03/14/20 17:00 114/57 03/14/20 16:30 69 19 109/72 (84) 97 03/14/20 16:00 Non-Rebreather 15.0 03/14/20 16:00 64 19 97/50 (66) 92 03/14/20 16:00 98.6 03/14/20 16:00 95/53 03/14/20 16:00 66 03/14/20 15:00 65 19 95/54 (68) 90 03/14/20 15:00 107/56 03/14/20 14:45 63 25 105/47 (66) 88 03/14/20 14:30 70 23 100/49 (66) 88 03/14/20 14:15 68 21 99/46 (63) 88 03/14/20 14:00 73 17 128/63 (84) 86 03/14/20 14:00 99/46 03/14/20 13:45 128/62 03/14/20 13:45 62 22 120/60 (80) 91 03/14/20 13:30 120/60 03/14/20 13:30 62 23 109/56 (73) 91 03/14/20 13:15 106/55 03/14/20 13:15 69 20 106/55 (72) 94 03/14/20 13:03 92 Non-Rebreather 15.0 100 03/14/20 13:00 64 24 129/65 (86) 94 4/28/20 13:00 106/55 Intake and Output 03/15/20 03/16/20 19:00 07:00 Intake Total 751.423 ml 1831.321 ml Output Total 715 ml 150 ml Balance 36.423 ml 1681.321 ml IV Total 751.423 ml 1811.321 ml Tube Feeding 20 ml Output Urine Total 715 ml 150 ml Labs Test 03/14/20 00:28 03/14/20 03:30 03/14/20 07:58 03/14/20 09:15 Arterial Blood pH 7.495 (7.350-7.450) 7.499 (7.350-7.450) Arterial Blood Partial Pressure CO2 50.3 mmHg (35.0-45.0) 50.2 mmHg (35.0-45.0) Arterial Blood Partial Pressure O2 52.1 mmHg (75.0-100.0) 51.1 mmHg (75.0-100.0) Arterial Blood HCO3 37.9 mmol/L (22.0-26.0) 38.2 mmol/L (22.0-26.0) Arterial Blood Oxygen Saturation 86.3 % (95-100) 86.9 % (95-100) Arterial Blood Base Excess 13.0 (-2-2) 12.9 (-2-2) Joaquin Test Positive Positive White Blood Count 4.5 K/UL (4.8-10.8) Red Blood Count 2.92 M/UL (4.20-5.40) Hemoglobin 9.6 G/DL (12.0-16.0) Hematocrit 29.3 % (37.0-47.0) Mean Corpuscular Volume 100 FL (80-99) Mean Corpuscular Hemoglobin 32.7 PG (27.0-31.0) Mean Corpuscular Hemoglobin Concent 32.6 G/DL (32.0-36.0) Red Cell Distribution Width 16.7 % (11.6-14.8) Platelet Count 118 K/UL (150-450) Mean Platelet Volume 5.9 FL (6.5-10.1) Neutrophils (%) (Auto) 74.4 % (45.0-75.0) Lymphocytes (%) (Auto) 12.2 % (20.0-45.0) Monocytes (%) (Auto) 8.5 % (1.0-10.0) Eosinophils (%) (Auto) 4.1 % (0.0-3.0) Basophils (%) (Auto) 0.7 % (0.0-2.0) Sodium Level 139 MMOL/L (136-145) Potassium Level 2.6 MMOL/L (3.5-5.1) Chloride Level 98 MMOL/L (98-107) Carbon Dioxide Level 39 MMOL/L (21-32) Anion Gap 3 mmol/L (5-15) Blood Urea Nitrogen 6 mg/dL (7-18) Creatinine 0.6 MG/DL (0.55-1.30) Estimat Glomerular Filtration Rate > 60 mL/min (>60) Glucose Level 92 MG/DL (74-106) Calcium Level 7.6 MG/DL (8.5-10.1) Total Bilirubin 1.4 MG/DL (0.2-1.0) 1.3 MG/DL (0.2-1.0) Direct Bilirubin 0.5 MG/DL (0.0-0.3) 0.5 MG/DL (0.0-0.3) Aspartate Amino Transf (AST/SGOT) 71 U/L (15-37) 69 U/L (15-37) Alanine Aminotransferase (ALT/SGPT) 19 U/L (12-78) 17 U/L (12-78) Alkaline Phosphatase 97 U/L (46-116) 94 U/L (46-116) Total Protein 7.9 G/DL (6.4-8.2) 7.7 G/DL (6.4-8.2) Albumin 1.8 G/DL (3.4-5.0) 1.7 G/DL (3.4-5.0) Globulin 6.1 g/dL Albumin/Globulin Ratio 0.3 (1.0-2.7) D-Dimer 8.06 mg/L FEU (0.00-0.49) Magnesium Level 1.4 MG/DL (1.8-2.4) Ferritin 835 NG/ML (8-388) Lactate Dehydrogenase 415 U/L (81-234) Troponin I 0.009 ng/mL (0.000-0.056) C-Reactive Protein, Quantitative 16.2 mg/dL (0.00-0.90) Pro-B-Type Natriuretic Peptide 624 pg/mL (0-125) Test 03/15/20 04:00 03/15/20 08:31 03/15/20 15:56 03/15/20 18:39 White Blood Count 6.6 K/UL (4.8-10.8) Red Blood Count 3.01 M/UL (4.20-5.40) Hemoglobin 9.8 G/DL (12.0-16.0) Hematocrit 30.0 % (37.0-47.0) Mean Corpuscular Volume 100 FL (80-99) Mean Corpuscular Hemoglobin 32.5 PG (27.0-31.0) Mean Corpuscular Hemoglobin Concent 32.5 G/DL (32.0-36.0) Red Cell Distribution Width 16.5 % (11.6-14.8) Platelet Count 105 K/UL (150-450) Mean Platelet Volume 6.4 FL (6.5-10.1) Neutrophils (%) (Auto) 76.7 % (45.0-75.0) Lymphocytes (%) (Auto) 11.6 % (20.0-45.0) Monocytes (%) (Auto) 7.4 % (1.0-10.0) Eosinophils (%) (Auto) 3.7 % (0.0-3.0) Basophils (%) (Auto) 0.6 % (0.0-2.0) Sodium Level 137 MMOL/L (136-145) Potassium Level 3.6 MMOL/L (3.5-5.1) Chloride Level 99 MMOL/L (98-107) Carbon Dioxide Level 39 MMOL/L (21-32) Anion Gap -1 mmol/L (5-15) Blood Urea Nitrogen 7 mg/dL (7-18) Creatinine 0.7 MG/DL (0.55-1.30) Estimat Glomerular Filtration Rate > 60 mL/min (>60) Glucose Level 94 MG/DL (74-106) Calcium Level 7.2 MG/DL (8.5-10.1) Magnesium Level 1.6 MG/DL (1.8-2.4) Total Bilirubin 1.5 MG/DL (0.2-1.0) Direct Bilirubin 0.4 MG/DL (0.0-0.3) Aspartate Amino Transf (AST/SGOT) 74 U/L (15-37) Alanine Aminotransferase (ALT/SGPT) 19 U/L (12-78) Alkaline Phosphatase 98 U/L (46-116) Total Protein 8.0 G/DL (6.4-8.2) Albumin 1.7 G/DL (3.4-5.0) Globulin 6.3 g/dL Albumin/Globulin Ratio 0.3 (1.0-2.7) Arterial Blood pH 7.463 (7.350-7.450) 7.416 (7.350-7.450) 7.450 (7.350-7.450) Arterial Blood Partial Pressure CO2 49.2 mmHg (35.0-45.0) 57.4 mmHg (35.0-45.0) 51.6 mmHg (35.0-45.0) Arterial Blood Partial Pressure O2 52.1 mmHg (75.0-100.0) 50.3 mmHg (75.0-100.0) 110.9 mmHg (75.0-100.0) Arterial Blood HCO3 34.4 mmol/L (22.0-26.0) 36.1 mmol/L (22.0-26.0) 35.5 mmol/L (22.0-26.0) Arterial Blood Oxygen Saturation 85.6 % (95-100) 83.3 % (95-100) 98.1 % (95-100) Arterial Blood Base Excess 9.5 (-2-2) 10.0 (-2-2) 10.2 (-2-2) Joaquin Test Positive N/a Positive Test 03/16/20 04:54 03/16/20 07:22 White Blood Count 13.1 K/UL (4.8-10.8) Red Blood Count 3.24 M/UL (4.20-5.40) Hemoglobin 10.8 G/DL (12.0-16.0) Hematocrit 32.3 % (37.0-47.0) Mean Corpuscular Volume 100 FL (80-99) Mean Corpuscular Hemoglobin 33.5 PG (27.0-31.0) Mean Corpuscular Hemoglobin Concent 33.6 G/DL (32.0-36.0) Red Cell Distribution Width 16.9 % (11.6-14.8) Platelet Count 118 K/UL (150-450) Mean Platelet Volume 6.6 FL (6.5-10.1) Neutrophils (%) (Auto) 75.1 % (45.0-75.0) Lymphocytes (%) (Auto) 13.6 % (20.0-45.0) Monocytes (%) (Auto) 5.2 % (1.0-10.0) Eosinophils (%) (Auto) 5.4 % (0.0-3.0) Basophils (%) (Auto) 0.7 % (0.0-2.0) Sodium Level 132 MMOL/L (136-145) Potassium Level 3.5 MMOL/L (3.5-5.1) Chloride Level 95 MMOL/L (98-107) Carbon Dioxide Level 34 MMOL/L (21-32) Anion Gap 3 mmol/L (5-15) Blood Urea Nitrogen 8 mg/dL (7-18) Creatinine 0.9 MG/DL (0.55-1.30) Estimat Glomerular Filtration Rate > 60 mL/min (>60) Glucose Level 140 MG/DL (74-106) Calcium Level 7.9 MG/DL (8.5-10.1) Magnesium Level 1.9 MG/DL (1.8-2.4) Total Bilirubin 1.7 MG/DL (0.2-1.0) Direct Bilirubin 0.8 MG/DL (0.0-0.3) Aspartate Amino Transf (AST/SGOT) 73 U/L (15-37) Alanine Aminotransferase (ALT/SGPT) 10 U/L (12-78) Alkaline Phosphatase 105 U/L (46-116) Total Protein 8.3 G/DL (6.4-8.2) Albumin 1.8 G/DL (3.4-5.0) Globulin 6.5 g/dL Albumin/Globulin Ratio 0.3 (1.0-2.7) Triglycerides Level 116 MG/DL (30-150) Arterial Blood pH 7.401 (7.350-7.450) Arterial Blood Partial Pressure CO2 54.4 mmHg (35.0-45.0) Arterial Blood Partial Pressure O2 72.6 mmHg (75.0-100.0) Arterial Blood HCO3 33.0 mmol/L (22.0-26.0) Arterial Blood Oxygen Saturation 94.0 % (95-100) Arterial Blood Base Excess 7.0 (-2-2) Joaquin Test Positive Height (Feet): 5 Height (Inches): 1.00 Weight (Pounds): 239 Objective Physical Exam: Vitals: reviewed General: NAD HEENT: nc, at Neck: supple Chest: clear breath sounds bilaterally Cardiovascular: RRR, no s3, s4 EXT ++ Significant edema and erythema bilateral lower extremity, patient also has blistering on both feet given the edema, whittish overcrust/crusting++ Neurologic: alert, oriented x3 Skin: other - As above Brett Mcclain MD Mar 16, 2020 12:52
[2020-03-16] MEDS: Meropenem 1 GM in NS 55 ML IVPB SCH ×2 (14:13→22:15)
--- NOTE | 2020-03-16 17:24 | Surgery Progress Note ---
Surgery Progress Note Subjective Additional Comments Patient is acutely worsened. On 2 pressors intubated on vent support. Prognosis guarded. Leukocytosis. Abnormal labs. She is deteriorating fairly rapidly. Objective Last 24 Hour Vital Signs Date Time Temp Pulse Resp B/P (MAP) Pulse Ox O2 Delivery O2 Flow Rate FiO2 03/16/20 17:12 26 104/74 Mechanical Ventilator 100 03/16/20 16:00 Mechanical Ventilator 03/16/20 16:00 100 03/16/20 16:00 108/49 03/16/20 16:00 26 108/49 Mechanical Ventilator 100 03/16/20 16:00 26 Mechanical Ventilator 100 03/16/20 16:00 53 03/16/20 16:00 98.4 52 26 108/49 (68) 94 03/16/20 15:30 117/96 03/16/20 15:30 26 Mechanical Ventilator 100 03/16/20 15:30 72 16 117/96 (103) 96 03/16/20 15:15 54 21 134/65 (88) 97 03/16/20 15:00 134/64 03/16/20 15:00 26 134/64 Mechanical Ventilator 100 03/16/20 15:00 26 Mechanical Ventilator 100 03/16/20 15:00 53 19 134/64 (87) 95 03/16/20 14:52 53 26 100 03/16/20 14:45 53 19 133/67 (89) 99 03/16/20 14:30 53 23 129/65 (86) 98 03/16/20 14:30 26 Mechanical Ventilator 100 03/16/20 14:19 122/60 03/16/20 14:15 52 25 122/60 (80) 95 03/16/20 14:13 100 03/16/20 14:00 117/62 03/16/20 14:00 26 117/62 Mechanical Ventilator 100 03/16/20 14:00 26 Mechanical Ventilator 100 03/16/20 14:00 52 15 117/62 (80) 98 03/16/20 13:45 53 19 102/57 (72) 97 03/16/20 13:30 98.3 55 12 89/51 (64) 87 03/16/20 13:30 22 89/51 Mechanical Ventilator 100 03/16/20 13:15 56 22 82/47 (59) 79 4/30/20 13:00 88/50 03/16/20 13:00 22 88/50 Mechanical Ventilator 100 03/16/20 13:00 22 Mechanical Ventilator 100 03/16/20 13:00 56 22 88/50 (63) 80 03/16/20 12:30 57 22 87/54 (65) 74 03/16/20 12:15 58 22 91/51 (64) 73 03/16/20 12:10 22 91/49 Mechanical Ventilator 100 03/16/20 12:00 53 03/16/20 12:00 91/51 03/16/20 12:00 22 91/51 Mechanical Ventilator 100.0 03/16/20 12:00 22 Mechanical Ventilator 100 03/16/20 12:00 Mechanical Ventilator 03/16/20 12:00 100 03/16/20 12:00 99.8 56 22 91/49 (63) 80 03/16/20 11:45 58 22 91/47 (62) 67 03/16/20 11:30 55 22 96/50 (65) 77 03/16/20 11:09 55 22 100 03/16/20 11:00 54 22 106/59 (75) 92 03/16/20 11:00 109/64 03/16/20 11:00 22 109/64 Mechanical Ventilator 100 03/16/20 11:00 22 Mechanical Ventilator 100 03/16/20 10:30 62 22 89/42 (58) 92 03/16/20 10:15 60 22 89/44 (59) 97 03/16/20 10:07 60 22 81/38 (52) 93 03/16/20 10:00 62 22 68/27 (41) 93 03/16/20 10:00 85/34 03/16/20 10:00 22 81/38 Mechanical Ventilator 100 03/16/20 10:00 22 Mechanical Ventilator 100 03/16/20 09:30 59 22 89/39 (56) 96 03/16/20 09:00 62 22 91/44 (60) 95 03/16/20 09:00 91/44 03/16/20 09:00 22 91/44 Mechanical Ventilator 100 03/16/20 09:00 22 Mechanical Ventilator 100 03/16/20 08:40 22 98/46 Mechanical Ventilator 100 03/16/20 08:30 64 22 98/46 (63) 98 03/16/20 08:00 Mechanical Ventilator 03/16/20 08:00 100 03/16/20 08:00 97/43 03/16/20 08:00 22 97/43 Mechanical Ventilator 100 03/16/20 08:00 22 Mechanical Ventilator 100 03/16/20 08:00 63 03/16/20 08:00 100.2 62 22 97/43 (61) 96 03/16/20 07:30 63 22 96/43 (60) 97 03/16/20 07:08 97 22 100 03/16/20 07:00 103/53 03/16/20 07:00 22 103/53 Mechanical Ventilator 100 03/16/20 07:00 22 Mechanical Ventilator 100 03/16/20 07:00 60 103/50 (67) 03/16/20 06:45 59 22 103/50 (67) 97 03/16/20 06:30 58 22 102/48 (66) 96 03/16/20 06:15 58 22 99/50 (66) 95 03/16/20 06:00 58 22 102/48 (66) 95 03/16/20 06:00 102/48 03/16/20 06:00 22 102/48 Mechanical Ventilator 100 03/16/20 06:00 22 Mechanical Ventilator 100 03/16/20 05:45 58 22 102/49 (66) 96 03/16/20 05:30 58 22 99/51 (67) 96 03/16/20 05:23 102/49 03/16/20 05:23 22 102/49 Mechanical Ventilator 100 03/16/20 05:15 22 99/51 Mechanical Ventilator 100 03/16/20 05:15 59 22 102/49 (66) 96 03/16/20 05:00 102/47 03/16/20 05:00 22 102/47 Mechanical Ventilator 100 03/16/20 05:00 22 Mechanical Ventilator 100 03/16/20 05:00 59 22 102/47 (65) 98 03/16/20 04:45 59 22 98/43 (61) 97 03/16/20 04:45 22 102/47 Mechanical Ventilator 100 03/16/20 04:42 92 26 100 03/16/20 04:33 68 21 106/54 (71) 91 03/16/20 04:30 22 106/54 Mechanical Ventilator 100 03/16/20 04:30 67 22 89/56 (67) 87 03/16/20 04:15 22 89/56 Mechanical Ventilator 100 03/16/20 04:15 62 22 110/54 (72) 92 03/16/20 04:00 100 03/16/20 04:00 66 03/16/20 04:00 110/54 03/16/20 04:00 22 110/54 Mechanical Ventilator 100 03/16/20 04:00 22 Mechanical Ventilator 100 03/16/20 04:00 Mechanical Ventilator 03/16/20 04:00 98.9 59 22 111/48 (69) 91 03/16/20 03:45 22 111/48 Mechanical Ventilator 100 03/16/20 03:45 58 22 114/51 (72) 95 03/16/20 03:30 22 114/51 Mechanical Ventilator 100 03/16/20 03:30 57 22 113/48 (69) 96 03/16/20 03:22 57 22 104/50 (68) 96 03/16/20 03:15 22 104/50 Mechanical Ventilator 100 03/16/20 03:15 60 21 81/37 (52) 97 03/16/20 03:00 63 22 79/40 (53) 98 03/16/20 03:00 82/37 03/16/20 03:00 22 82/37 Mechanical Ventilator 100 03/16/20 03:00 22 Mechanical Ventilator 100 03/16/20 02:57 91 24 100 03/16/20 02:54 66 22 72/31 (45) 96 03/16/20 02:51 67 22 68/35 (46) 97 03/16/20 02:30 67 22 68/35 (46) 97 03/16/20 02:15 62 22 97/55 (69) 91 03/16/20 02:00 104/55 03/16/20 02:00 22 104/55 Mechanical Ventilator 100 03/16/20 02:00 22 Mechanical Ventilator 100 03/16/20 02:00 59 23 104/55 (71) 97 03/16/20 01:45 62 21 105/60 (75) 99 03/16/20 01:30 64 22 103/59 (74) 94 03/16/20 01:15 67 19 96/56 (69) 95 03/16/20 01:12 89 24 100 03/16/20 01:08 91/46 03/16/20 01:08 22 91/46 Mechanical Ventilator 100 03/16/20 01:00 65 22 91/46 (61) 95 03/16/20 01:00 96/56 03/16/20 01:00 22 96/56 Mechanical Ventilator 100 03/16/20 01:00 22 Mechanical Ventilator 100 03/16/20 00:45 67 21 94/50 (65) 93 03/16/20 00:30 65 22 90/51 (64) 96 03/16/20 00:15 65 22 93/51 (65) 95 03/16/20 00:00 66 22 100/56 (71) 96 03/16/20 00:00 Mechanical Ventilator 03/16/20 00:00 100 03/16/20 00:00 93/51 03/16/20 00:00 22 93/51 Mechanical Ventilator 100 03/16/20 00:00 22 Mechanical Ventilator 100 03/16/20 00:00 65 03/15/20 23:45 62 22 91/54 (66) 98 03/15/20 23:30 67 22 100/50 (67) 95 03/15/20 23:20 100 23 100 03/15/20 23:15 65 22 90/52 (65) 98 03/15/20 23:00 90/52 03/15/20 23:00 22 90/52 Mechanical Ventilator 100 03/15/20 23:00 22 Mechanical Ventilator 100 03/15/20 23:00 67 17 105/59 (74) 99 03/15/20 22:45 63 13 96/57 (70) 99 03/15/20 22:30 60 22 92/46 (61) 100 03/15/20 22:15 64 22 99/52 (68) 100 03/15/20 22:00 62 22 100/56 (71) 100 03/15/20 22:00 99/52 03/15/20 22:00 20 99/52 Mechanical Ventilator 100 03/15/20 22:00 20 Mechanical Ventilator 100 03/15/20 21:45 20 100/56 Mechanical Ventilator 100 03/15/20 21:45 72 21 107/59 (75) 99 03/15/20 21:30 63 19 105/62 (76) 99 03/15/20 21:30 20 107/59 Mechanical Ventilator 100 03/15/20 21:17 99.0 03/15/20 21:16 112/65 03/15/20 21:15 20 105/62 Mechanical Ventilator 100 03/15/20 21:15 63 3 101/61 (74) 99 03/15/20 21:00 100 03/15/20 21:00 20 116/65 Mechanical Ventilator 100 03/15/20 21:00 20 Mechanical Ventilator 100 03/15/20 21:00 74 23 112/65 (81) 95 03/15/20 20:59 100 22 100 03/15/20 20:45 20 100/46 Mechanical Ventilator 100 03/15/20 20:45 67 22 100/56 (71) 100 03/15/20 20:30 22 100/56 Mechanical Ventilator 100 03/15/20 20:30 22 Mechanical Ventilator 100 03/15/20 20:30 68 22 99/58 (72) 100 03/15/20 20:15 77 28 67/51 (56) 100 03/15/20 20:00 99.0 79 22 96/68 (77) 100 03/15/20 20:00 Mechanical Ventilator 03/15/20 20:00 22 67/51 Mechanical Ventilator 100 03/15/20 20:00 69 03/15/20 20:00 100 03/15/20 19:45 69 22 91/54 (66) 100 03/15/20 19:30 70 22 95/50 (65) 100 03/15/20 19:00 22 76/43 Mechanical Ventilator 100 03/15/20 19:00 76/43 03/15/20 19:00 74 22 76/43 (54) 100 03/15/20 18:58 100 22 100 03/15/20 18:30 77 22 91/52 (65) 100 03/15/20 18:15 84 22 105/63 (77) 97 03/15/20 18:00 98.5 94 22 163/79 (107) 94 03/15/20 18:00 100 03/15/20 18:00 22 135/98 100 03/15/20 18:00 163/79 03/15/20 17:56 98 22 93 Mechanical Ventilator 100 03/15/20 17:49 98 22 100 03/15/20 17:30 77 17 105/45 (65) 93 I&O Intake and Output 4/29/20 4/30/20 19:00 07:00 Intake Total 751.423 ml 1831.321 ml Output Total 715 ml 150 ml Balance 36.423 ml 1681.321 ml IV Total 751.423 ml 1811.321 ml Tube Feeding 20 ml Output Urine Total 715 ml 150 ml Dressing: other Wound: other Drains: other Cardiovascular: RSR, other Respiratory: decreased breath sounds Abdomen: soft, other - Obese no bowel sounds nondistended, non-distended, decreased bowel sounds Extremities: edema, no cyanosis, pulses, other Laboratory Tests Test 03/15/20 18:39 03/16/20 04:54 03/16/20 07:22 03/16/20 15:43 Arterial Blood pH 7.450 (7.350-7.450) 7.401 (7.350-7.450) 7.400 (7.350-7.450) Arterial Blood Partial Pressure CO2 51.6 mmHg (35.0-45.0) H 54.4 mmHg (35.0-45.0) H 46.8 mmHg (35.0-45.0) H Arterial Blood Partial Pressure O2 110.9 mmHg (75.0-100.0) H 72.6 mmHg (75.0-100.0) L 69.6 mmHg (75.0-100.0) L Arterial Blood HCO3 35.5 mmol/L (22.0-26.0) H 33.0 mmol/L (22.0-26.0) H 28.3 mmol/L (22.0-26.0) H Arterial Blood Oxygen Saturation 98.1 % (95-100) 94.0 % (95-100) L 93.0 % (95-100) L Arterial Blood Base Excess 10.2 (-2-2) *H 7.0 (-2-2) H 3 (-2-2) H Joaquin Test Positive Positive Positive White Blood Count 13.1 K/UL (4.8-10.8) #H Red Blood Count 3.24 M/UL (4.20-5.40) L Hemoglobin 10.8 G/DL (12.0-16.0) L Hematocrit 32.3 % (37.0-47.0) L Mean Corpuscular Volume 100 FL (80-99) H Mean Corpuscular Hemoglobin 33.5 PG (27.0-31.0) H Mean Corpuscular Hemoglobin Concent 33.6 G/DL (32.0-36.0) Red Cell Distribution Width 16.9 % (11.6-14.8) H Platelet Count 118 K/UL (150-450) L Mean Platelet Volume 6.6 FL (6.5-10.1) Neutrophils (%) (Auto) 75.1 % (45.0-75.0) H Lymphocytes (%) (Auto) 13.6 % (20.0-45.0) L Monocytes (%) (Auto) 5.2 % (1.0-10.0) Eosinophils (%) (Auto) 5.4 % (0.0-3.0) H Basophils (%) (Auto) 0.7 % (0.0-2.0) Sodium Level 132 MMOL/L (136-145) L Potassium Level 3.5 MMOL/L (3.5-5.1) Chloride Level 95 MMOL/L (98-107) L Carbon Dioxide Level 34 MMOL/L (21-32) H Anion Gap 3 mmol/L (5-15) L Blood Urea Nitrogen 8 mg/dL (7-18) Creatinine 0.9 MG/DL (0.55-1.30) Estimat Glomerular Filtration Rate > 60 mL/min (>60) Glucose Level 140 MG/DL (74-106) H Calcium Level 7.9 MG/DL (8.5-10.1) L Magnesium Level 1.9 MG/DL (1.8-2.4) Total Bilirubin 1.7 MG/DL (0.2-1.0) H Direct Bilirubin 0.8 MG/DL (0.0-0.3) H Aspartate Amino Transf (AST/SGOT) 73 U/L (15-37) H Alanine Aminotransferase (ALT/SGPT) 10 U/L (12-78) L Alkaline Phosphatase 105 U/L (46-116) Total Protein 8.3 G/DL (6.4-8.2) H Albumin 1.8 G/DL (3.4-5.0) L Globulin 6.5 g/dL Albumin/Globulin Ratio 0.3 (1.0-2.7) L Triglycerides Level 116 MG/DL (30-150) Plan Problems: (1) Cellulitis Assessment & Plan: bilateral lower extremity cellulitis / edema chronic venous status changes dermatitis no abscess no purulent drainage ulcerations forming. keep lower extremity elevated while in bed apply skin protectant / moisturizing cream daily okay to shower okay to wrap soft after cream abx as per ID for cellulitis okay for diet duplex ordered trend labs will follow with recs thank you No evidence of deep venous thrombosis involving the visualized veins of the RIGHT lower extremity. refused eval of left COVID ++ cxr noted cont current supportive care improving labs stable improving slowly wean pressors as tolerated Patient is acutely worsened intubated on vent support 2 pressors now worsening labs worsening Prognosis is guarded we will continue with maximal support efforts (2) COVID-19 Assessment & Plan: see above Theron Sotomayor Mar 16, 2020 17:24
[2020-03-16] MEDS: fentaNYL Citrate 2,500 MCG in NS 200 ML IV SCH (18:15)
--- NOTE | 2020-03-16 19:14 | Cardiology Progress Note ---
Assessment/Plan Assessment/Plan 1. Acute respiratory failure with hypoxic hypercapnea due to bilateral PNA caused by COVID-19 infection, pulmonary and ID f/u. 2. Septic shock on levophed gtt, keep MAP at 65 mmHg and above. 3. Noncardiac chest pain on presentation, acute myocardial function is ruled out by two negative troponin I levels, 12-lead electrocardiogram does not show any acute ischemic changes. 4. Bilateral lower extremity cellulitis with Pseudomonas aeruginosa in culture. 5. Pancytopenia, most likely due to hepatitis C virus infection/liver cirrhosis. Subjective Subjective Transferred to the ICU due to respiratory failure requiring intubation. Sinus bradycardia at rate of 54. Objective Last 24 Hour Vital Signs Date Time Temp Pulse Resp B/P (MAP) Pulse Ox O2 Delivery O2 Flow Rate FiO2 03/16/20 18:21 112/56 03/16/20 18:15 26 Mechanical Ventilator 100 03/16/20 18:15 54 26 112/56 (74) 95 03/16/20 18:00 54 26 108/56 (73) 95 03/16/20 18:00 108/56 03/16/20 18:00 26 108/56 Mechanical Ventilator 100 03/16/20 18:00 26 Mechanical Ventilator 100 03/16/20 17:45 54 26 105/59 (74) 93 03/16/20 17:30 54 26 86/72 (77) 93 03/16/20 17:22 58 26 100 03/16/20 17:15 55 26 104/72 (83) 91 03/16/20 17:12 26 104/74 Mechanical Ventilator 100 03/16/20 17:00 55 26 104/74 (84) 88 03/16/20 17:00 104/74 03/16/20 17:00 26 104/74 Mechanical Ventilator 100 03/16/20 17:00 26 Mechanical Ventilator 100 03/16/20 16:00 Mechanical Ventilator 03/16/20 16:00 100 03/16/20 16:00 108/49 03/16/20 16:00 26 108/49 Mechanical Ventilator 100 03/16/20 16:00 26 Mechanical Ventilator 100 03/16/20 16:00 53 03/16/20 16:00 98.4 52 26 108/49 (68) 94 03/16/20 15:30 117/96 03/16/20 15:30 26 Mechanical Ventilator 100 03/16/20 15:30 72 16 117/96 (103) 96 03/16/20 15:15 54 21 134/65 (88) 97 03/16/20 15:00 134/64 03/16/20 15:00 26 134/64 Mechanical Ventilator 100 03/16/20 15:00 26 Mechanical Ventilator 100 03/16/20 15:00 53 19 134/64 (87) 95 03/16/20 14:52 53 26 100 03/16/20 14:45 53 19 133/67 (89) 99 03/16/20 14:30 53 23 129/65 (86) 98 03/16/20 14:30 26 Mechanical Ventilator 100 03/16/20 14:19 122/60 03/16/20 14:15 52 25 122/60 (80) 95 03/16/20 14:13 100 03/16/20 14:00 117/62 03/16/20 14:00 26 117/62 Mechanical Ventilator 100 03/16/20 14:00 26 Mechanical Ventilator 100 03/16/20 14:00 52 15 117/62 (80) 98 03/16/20 13:45 53 19 102/57 (72) 97 03/16/20 13:30 98.3 55 12 89/51 (64) 87 03/16/20 13:30 22 89/51 Mechanical Ventilator 100 03/16/20 13:15 56 22 82/47 (59) 79 03/16/20 13:00 88/50 03/16/20 13:00 22 88/50 Mechanical Ventilator 100 03/16/20 13:00 22 Mechanical Ventilator 100 03/16/20 13:00 56 22 88/50 (63) 80 03/16/20 12:30 57 22 87/54 (65) 74 03/16/20 12:15 58 22 91/51 (64) 73 03/16/20 12:10 22 91/49 Mechanical Ventilator 100 03/16/20 12:00 53 03/16/20 12:00 91/51 03/16/20 12:00 22 91/51 Mechanical Ventilator 100.0 03/16/20 12:00 22 Mechanical Ventilator 100 03/16/20 12:00 Mechanical Ventilator 03/16/20 12:00 100 03/16/20 12:00 99.8 56 22 91/49 (63) 80 03/16/20 11:45 58 22 91/47 (62) 67 03/16/20 11:30 55 22 96/50 (65) 77 03/16/20 11:09 55 22 100 03/16/20 11:00 54 22 106/59 (75) 92 03/16/20 11:00 109/64 03/16/20 11:00 22 109/64 Mechanical Ventilator 100 03/16/20 11:00 22 Mechanical Ventilator 100 03/16/20 10:30 62 22 89/42 (58) 92 03/16/20 10:15 60 22 89/44 (59) 97 03/16/20 10:07 60 22 81/38 (52) 93 03/16/20 10:00 62 22 68/27 (41) 93 03/16/20 10:00 85/34 03/16/20 10:00 22 81/38 Mechanical Ventilator 100 03/16/20 10:00 22 Mechanical Ventilator 100 03/16/20 09:30 59 22 89/39 (56) 96 03/16/20 09:00 62 22 91/44 (60) 95 03/16/20 09:00 91/44 03/16/20 09:00 22 91/44 Mechanical Ventilator 100 03/16/20 09:00 22 Mechanical Ventilator 100 03/16/20 08:40 22 98/46 Mechanical Ventilator 100 03/16/20 08:30 64 22 98/46 (63) 98 03/16/20 08:00 Mechanical Ventilator 03/16/20 08:00 100 03/16/20 08:00 97/43 03/16/20 08:00 22 97/43 Mechanical Ventilator 100 03/16/20 08:00 22 Mechanical Ventilator 100 03/16/20 08:00 63 03/16/20 08:00 100.2 62 22 97/43 (61) 96 03/16/20 07:30 63 22 96/43 (60) 97 03/16/20 07:08 97 22 100 03/16/20 07:00 103/53 03/16/20 07:00 22 103/53 Mechanical Ventilator 100 03/16/20 07:00 22 Mechanical Ventilator 100 03/16/20 07:00 60 103/50 (67) 03/16/20 06:45 59 22 103/50 (67) 97 03/16/20 06:30 58 22 102/48 (66) 96 03/16/20 06:15 58 22 99/50 (66) 95 03/16/20 06:00 58 22 102/48 (66) 95 03/16/20 06:00 102/48 03/16/20 06:00 22 102/48 Mechanical Ventilator 100 03/16/20 06:00 22 Mechanical Ventilator 100 03/16/20 05:45 58 22 102/49 (66) 96 03/16/20 05:30 58 22 99/51 (67) 96 03/16/20 05:23 102/49 03/16/20 05:23 22 102/49 Mechanical Ventilator 100 03/16/20 05:15 22 99/51 Mechanical Ventilator 100 03/16/20 05:15 59 22 102/49 (66) 96 03/16/20 05:00 102/47 03/16/20 05:00 22 102/47 Mechanical Ventilator 100 03/16/20 05:00 22 Mechanical Ventilator 100 03/16/20 05:00 59 22 102/47 (65) 98 03/16/20 04:45 59 22 98/43 (61) 97 03/16/20 04:45 22 102/47 Mechanical Ventilator 100 03/16/20 04:42 92 26 100 03/16/20 04:33 68 21 106/54 (71) 91 03/16/20 04:30 22 106/54 Mechanical Ventilator 100 03/16/20 04:30 67 22 89/56 (67) 87 03/16/20 04:15 22 89/56 Mechanical Ventilator 100 03/16/20 04:15 62 22 110/54 (72) 92 03/16/20 04:00 100 03/16/20 04:00 66 03/16/20 04:00 110/54 03/16/20 04:00 22 110/54 Mechanical Ventilator 100 03/16/20 04:00 22 Mechanical Ventilator 100 03/16/20 04:00 Mechanical Ventilator 03/16/20 04:00 98.9 59 22 111/48 (69) 91 03/16/20 03:45 22 111/48 Mechanical Ventilator 100 03/16/20 03:45 58 22 114/51 (72) 95 03/16/20 03:30 22 114/51 Mechanical Ventilator 100 03/16/20 03:30 57 22 113/48 (69) 96 03/16/20 03:22 57 22 104/50 (68) 96 03/16/20 03:15 22 104/50 Mechanical Ventilator 100 03/16/20 03:15 60 21 81/37 (52) 97 03/16/20 03:00 63 22 79/40 (53) 98 03/16/20 03:00 82/37 03/16/20 03:00 22 82/37 Mechanical Ventilator 100 03/16/20 03:00 22 Mechanical Ventilator 100 03/16/20 02:57 91 24 100 03/16/20 02:54 66 22 72/31 (45) 96 03/16/20 02:51 67 22 68/35 (46) 97 03/16/20 02:30 67 22 68/35 (46) 97 03/16/20 02:15 62 22 97/55 (69) 91 03/16/20 02:00 104/55 03/16/20 02:00 22 104/55 Mechanical Ventilator 100 03/16/20 02:00 22 Mechanical Ventilator 100 03/16/20 02:00 59 23 104/55 (71) 97 03/16/20 01:45 62 21 105/60 (75) 99 03/16/20 01:30 64 22 103/59 (74) 94 03/16/20 01:15 67 19 96/56 (69) 95 03/16/20 01:12 89 24 100 03/16/20 01:08 91/46 03/16/20 01:08 22 91/46 Mechanical Ventilator 100 03/16/20 01:00 65 22 91/46 (61) 95 03/16/20 01:00 96/56 03/16/20 01:00 22 96/56 Mechanical Ventilator 100 03/16/20 01:00 22 Mechanical Ventilator 100 03/16/20 00:45 67 21 94/50 (65) 93 03/16/20 00:30 65 22 90/51 (64) 96 03/16/20 00:15 65 22 93/51 (65) 95 03/16/20 00:00 66 22 100/56 (71) 96 03/16/20 00:00 Mechanical Ventilator 03/16/20 00:00 100 03/16/20 00:00 93/51 03/16/20 00:00 22 93/51 Mechanical Ventilator 100 4/30/20 00:00 22 Mechanical Ventilator 100 03/16/20 00:00 65 03/15/20 23:45 62 22 91/54 (66) 98 03/15/20 23:30 67 22 100/50 (67) 95 03/15/20 23:20 100 23 100 03/15/20 23:15 65 22 90/52 (65) 98 03/15/20 23:00 90/52 03/15/20 23:00 22 90/52 Mechanical Ventilator 100 03/15/20 23:00 22 Mechanical Ventilator 100 03/15/20 23:00 67 17 105/59 (74) 99 03/15/20 22:45 63 13 96/57 (70) 99 03/15/20 22:30 60 22 92/46 (61) 100 03/15/20 22:15 64 22 99/52 (68) 100 03/15/20 22:00 62 22 100/56 (71) 100 03/15/20 22:00 99/52 03/15/20 22:00 20 99/52 Mechanical Ventilator 100 03/15/20 22:00 20 Mechanical Ventilator 100 03/15/20 21:45 20 100/56 Mechanical Ventilator 100 03/15/20 21:45 72 21 107/59 (75) 99 03/15/20 21:30 63 19 105/62 (76) 99 03/15/20 21:30 20 107/59 Mechanical Ventilator 100 03/15/20 21:17 99.0 03/15/20 21:16 112/65 03/15/20 21:15 20 105/62 Mechanical Ventilator 100 03/15/20 21:15 63 3 101/61 (74) 99 03/15/20 21:00 100 03/15/20 21:00 20 116/65 Mechanical Ventilator 100 03/15/20 21:00 20 Mechanical Ventilator 100 03/15/20 21:00 74 23 112/65 (81) 95 03/15/20 20:59 100 22 100 03/15/20 20:45 20 100/46 Mechanical Ventilator 100 03/15/20 20:45 67 22 100/56 (71) 100 03/15/20 20:30 22 100/56 Mechanical Ventilator 100 03/15/20 20:30 22 Mechanical Ventilator 100 03/15/20 20:30 68 22 99/58 (72) 100 03/15/20 20:15 77 28 67/51 (56) 100 03/15/20 20:00 99.0 79 22 96/68 (77) 100 03/15/20 20:00 Mechanical Ventilator 03/15/20 20:00 22 67/51 Mechanical Ventilator 100 03/15/20 20:00 69 03/15/20 20:00 100 03/15/20 19:45 69 22 91/54 (66) 100 03/15/20 19:30 70 22 95/50 (65) 100 Intake and Output 03/15/20 03/16/20 19:00 07:00 Intake Total 751.423 ml 1831.321 ml Output Total 715 ml 150 ml Balance 36.423 ml 1681.321 ml IV Total 751.423 ml 1811.321 ml Tube Feeding 20 ml Output Urine Total 715 ml 150 ml Laboratory Tests Test 03/16/20 04:54 03/16/20 07:22 03/16/20 15:43 White Blood Count 13.1 K/UL (4.8-10.8) #H Red Blood Count 3.24 M/UL (4.20-5.40) L Hemoglobin 10.8 G/DL (12.0-16.0) L Hematocrit 32.3 % (37.0-47.0) L Mean Corpuscular Volume 100 FL (80-99) H Mean Corpuscular Hemoglobin 33.5 PG (27.0-31.0) H Mean Corpuscular Hemoglobin Concent 33.6 G/DL (32.0-36.0) Red Cell Distribution Width 16.9 % (11.6-14.8) H Platelet Count 118 K/UL (150-450) L Mean Platelet Volume 6.6 FL (6.5-10.1) Neutrophils (%) (Auto) 75.1 % (45.0-75.0) H Lymphocytes (%) (Auto) 13.6 % (20.0-45.0) L Monocytes (%) (Auto) 5.2 % (1.0-10.0) Eosinophils (%) (Auto) 5.4 % (0.0-3.0) H Basophils (%) (Auto) 0.7 % (0.0-2.0) Sodium Level 132 MMOL/L (136-145) L Potassium Level 3.5 MMOL/L (3.5-5.1) Chloride Level 95 MMOL/L (98-107) L Carbon Dioxide Level 34 MMOL/L (21-32) H Anion Gap 3 mmol/L (5-15) L Blood Urea Nitrogen 8 mg/dL (7-18) Creatinine 0.9 MG/DL (0.55-1.30) Estimat Glomerular Filtration Rate > 60 mL/min (>60) Glucose Level 140 MG/DL (74-106) H Calcium Level 7.9 MG/DL (8.5-10.1) L Magnesium Level 1.9 MG/DL (1.8-2.4) Total Bilirubin 1.7 MG/DL (0.2-1.0) H Direct Bilirubin 0.8 MG/DL (0.0-0.3) H Aspartate Amino Transf (AST/SGOT) 73 U/L (15-37) H Alanine Aminotransferase (ALT/SGPT) 10 U/L (12-78) L Alkaline Phosphatase 105 U/L (46-116) Total Protein 8.3 G/DL (6.4-8.2) H Albumin 1.8 G/DL (3.4-5.0) L Globulin 6.5 g/dL Albumin/Globulin Ratio 0.3 (1.0-2.7) L Triglycerides Level 116 MG/DL (30-150) Arterial Blood pH 7.401 (7.350-7.450) 7.400 (7.350-7.450) Arterial Blood Partial Pressure CO2 54.4 mmHg (35.0-45.0) H 46.8 mmHg (35.0-45.0) H Arterial Blood Partial Pressure O2 72.6 mmHg (75.0-100.0) L 69.6 mmHg (75.0-100.0) L Arterial Blood HCO3 33.0 mmol/L (22.0-26.0) H 28.3 mmol/L (22.0-26.0) H Arterial Blood Oxygen Saturation 94.0 % (95-100) L 93.0 % (95-100) L Arterial Blood Base Excess 7.0 (-2-2) H 3 (-2-2) H Joaquin Test Positive Positive Objective HEENT: Atraumatic and normocephalic. Anicteric. Pupils are equal, round, and reactive to light and accommodation. Extraocular muscles intact. NECK: JVP cannot be assessed. No carotid bruit. Carotid upstroke is 2+ bilaterally. CARDIOVASCULAR: Normal S1, S2. Regular rate and rhythm. No murmurs, gallops, or rubs. PMI is at fourth intercostal space at left midclavicular line. LUNGS: Bibasilar crackles. ABDOMEN: Soft, nontender, and nondistended. No hepatosplenomegaly. Positive bowel sounds. EXTREMITIES: A 2+ edema bilaterally associated with erythema with blistering and crust formation of both feet. Berto Gonzalez MD Mar 16, 2020 19:14
[2020-03-16] MEDS: DOPamine 400mg/250ml 250 ML IV SCH (19:56)
[2020-03-16] MEDS: Dyna-Hex 2% Top Sol 2oz TOPIC SCH (19:56)
--- NOTE | 2020-03-16 20:23 | Diagnostic Imaging Report ---
Indication: Shortness of breath Technique: One view of the chest Comparison: 03/15/2020 Findings: Stable satisfactory positions of endotracheal and orogastric tubes, left arm PICC. Bilateral diffuse interstitial and airspace infiltrates appear stable or perhaps slightly improved. Impression: Slight improvement of still-extensive bilateral infiltrates, over one day
--- NOTE | 2020-03-16 20:29 | General Progress Note ---
Assessment/Plan Problem List: (1) Cellulitis ICD Codes: L03.90 - Cellulitis, unspecified SNOMED: [id number] Qualifiers: Qualified Codes: L03.119 - Cellulitis of unspecified part of limb Status: progressing, unchanged Assessment/Plan: leukocytosis afebrile abx per id celluitis improve coivd positive resps insuff pna sepsis anemia cirrhosis Subjective ROS Limited/Unobtainable: Yes Allergies: Coded Allergies: No Known Allergies (Unverified , 02/29/20) Objective Last 24 Hour Vital Signs Date Time Temp Pulse Resp B/P (MAP) Pulse Ox O2 Delivery O2 Flow Rate FiO2 03/16/20 19:56 102/57 03/16/20 19:06 64 26 100 03/16/20 19:00 55 26 121/51 (74) 96 03/16/20 19:00 121/51 03/16/20 19:00 26 121/51 Mechanical Ventilator 100 03/16/20 19:00 26 Mechanical Ventilator 100 03/16/20 18:45 55 26 118/78 (91) 95 03/16/20 18:30 55 26 113/45 (67) 95 03/16/20 18:21 112/56 03/16/20 18:15 26 Mechanical Ventilator 100 03/16/20 18:15 54 26 112/56 (74) 95 03/16/20 18:00 54 26 108/56 (73) 95 03/16/20 18:00 108/56 03/16/20 18:00 26 108/56 Mechanical Ventilator 100 03/16/20 18:00 26 Mechanical Ventilator 100 03/16/20 17:45 54 26 105/59 (74) 93 03/16/20 17:30 54 26 86/72 (77) 93 03/16/20 17:22 58 26 100 03/16/20 17:15 55 26 104/72 (83) 91 03/16/20 17:12 26 104/74 Mechanical Ventilator 100 03/16/20 17:00 55 26 104/74 (84) 88 03/16/20 17:00 104/74 03/16/20 17:00 26 104/74 Mechanical Ventilator 100 03/16/20 17:00 26 Mechanical Ventilator 100 03/16/20 16:00 Mechanical Ventilator 03/16/20 16:00 100 4/30/20 16:00 108/49 03/16/20 16:00 26 108/49 Mechanical Ventilator 100 03/16/20 16:00 26 Mechanical Ventilator 100 03/16/20 16:00 53 03/16/20 16:00 98.4 52 26 108/49 (68) 94 03/16/20 15:30 117/96 03/16/20 15:30 26 Mechanical Ventilator 100 03/16/20 15:30 72 16 117/96 (103) 96 03/16/20 15:15 54 21 134/65 (88) 97 03/16/20 15:00 134/64 03/16/20 15:00 26 134/64 Mechanical Ventilator 100 03/16/20 15:00 26 Mechanical Ventilator 100 03/16/20 15:00 53 19 134/64 (87) 95 03/16/20 14:52 53 26 100 03/16/20 14:45 53 19 133/67 (89) 99 03/16/20 14:30 53 23 129/65 (86) 98 03/16/20 14:30 26 Mechanical Ventilator 100 03/16/20 14:19 122/60 03/16/20 14:15 52 25 122/60 (80) 95 03/16/20 14:13 100 03/16/20 14:00 117/62 03/16/20 14:00 26 117/62 Mechanical Ventilator 100 03/16/20 14:00 26 Mechanical Ventilator 100 03/16/20 14:00 52 15 117/62 (80) 98 03/16/20 13:45 53 19 102/57 (72) 97 03/16/20 13:30 98.3 55 12 89/51 (64) 87 03/16/20 13:30 22 89/51 Mechanical Ventilator 100 03/16/20 13:15 56 22 82/47 (59) 79 03/16/20 13:00 88/50 03/16/20 13:00 22 88/50 Mechanical Ventilator 100 03/16/20 13:00 22 Mechanical Ventilator 100 03/16/20 13:00 56 22 88/50 (63) 80 03/16/20 12:30 57 22 87/54 (65) 74 03/16/20 12:15 58 22 91/51 (64) 73 03/16/20 12:10 22 91/49 Mechanical Ventilator 100 03/16/20 12:00 53 03/16/20 12:00 91/51 03/16/20 12:00 22 91/51 Mechanical Ventilator 100.0 03/16/20 12:00 22 Mechanical Ventilator 100 03/16/20 12:00 Mechanical Ventilator 03/16/20 12:00 100 03/16/20 12:00 99.8 56 22 91/49 (63) 80 03/16/20 11:45 58 22 91/47 (62) 67 03/16/20 11:30 55 22 96/50 (65) 77 03/16/20 11:09 55 22 100 03/16/20 11:00 54 22 106/59 (75) 92 03/16/20 11:00 109/64 03/16/20 11:00 22 109/64 Mechanical Ventilator 100 03/16/20 11:00 22 Mechanical Ventilator 100 03/16/20 10:30 62 22 89/42 (58) 92 03/16/20 10:15 60 22 89/44 (59) 97 03/16/20 10:07 60 22 81/38 (52) 93 03/16/20 10:00 62 22 68/27 (41) 93 03/16/20 10:00 85/34 03/16/20 10:00 22 81/38 Mechanical Ventilator 100 03/16/20 10:00 22 Mechanical Ventilator 100 03/16/20 09:30 59 22 89/39 (56) 96 03/16/20 09:00 62 22 91/44 (60) 95 03/16/20 09:00 91/44 03/16/20 09:00 22 91/44 Mechanical Ventilator 100 03/16/20 09:00 22 Mechanical Ventilator 100 03/16/20 08:40 22 98/46 Mechanical Ventilator 100 03/16/20 08:30 64 22 98/46 (63) 98 03/16/20 08:00 Mechanical Ventilator 03/16/20 08:00 100 03/16/20 08:00 97/43 03/16/20 08:00 22 97/43 Mechanical Ventilator 100 03/16/20 08:00 22 Mechanical Ventilator 100 03/16/20 08:00 63 03/16/20 08:00 100.2 62 22 97/43 (61) 96 03/16/20 07:30 63 22 96/43 (60) 97 03/16/20 07:08 97 22 100 4/30/20 07:00 103/53 03/16/20 07:00 22 103/53 Mechanical Ventilator 100 03/16/20 07:00 22 Mechanical Ventilator 100 03/16/20 07:00 60 103/50 (67) 03/16/20 06:45 59 22 103/50 (67) 97 03/16/20 06:30 58 22 102/48 (66) 96 03/16/20 06:15 58 22 99/50 (66) 95 03/16/20 06:00 58 22 102/48 (66) 95 03/16/20 06:00 102/48 03/16/20 06:00 22 102/48 Mechanical Ventilator 100 03/16/20 06:00 22 Mechanical Ventilator 100 03/16/20 05:45 58 22 102/49 (66) 96 03/16/20 05:30 58 22 99/51 (67) 96 03/16/20 05:23 102/49 03/16/20 05:23 22 102/49 Mechanical Ventilator 100 03/16/20 05:15 22 99/51 Mechanical Ventilator 100 03/16/20 05:15 59 22 102/49 (66) 96 03/16/20 05:00 102/47 03/16/20 05:00 22 102/47 Mechanical Ventilator 100 03/16/20 05:00 22 Mechanical Ventilator 100 03/16/20 05:00 59 22 102/47 (65) 98 03/16/20 04:45 59 22 98/43 (61) 97 03/16/20 04:45 22 102/47 Mechanical Ventilator 100 03/16/20 04:42 92 26 100 03/16/20 04:33 68 21 106/54 (71) 91 03/16/20 04:30 22 106/54 Mechanical Ventilator 100 03/16/20 04:30 67 22 89/56 (67) 87 03/16/20 04:15 22 89/56 Mechanical Ventilator 100 03/16/20 04:15 62 22 110/54 (72) 92 03/16/20 04:00 100 03/16/20 04:00 66 03/16/20 04:00 110/54 03/16/20 04:00 22 110/54 Mechanical Ventilator 100 03/16/20 04:00 22 Mechanical Ventilator 100 03/16/20 04:00 Mechanical Ventilator 03/16/20 04:00 98.9 59 22 111/48 (69) 91 03/16/20 03:45 22 111/48 Mechanical Ventilator 100 03/16/20 03:45 58 22 114/51 (72) 95 03/16/20 03:30 22 114/51 Mechanical Ventilator 100 03/16/20 03:30 57 22 113/48 (69) 96 03/16/20 03:22 57 22 104/50 (68) 96 03/16/20 03:15 22 104/50 Mechanical Ventilator 100 03/16/20 03:15 60 21 81/37 (52) 97 03/16/20 03:00 63 22 79/40 (53) 98 03/16/20 03:00 82/37 03/16/20 03:00 22 82/37 Mechanical Ventilator 100 03/16/20 03:00 22 Mechanical Ventilator 100 03/16/20 02:57 91 24 100 03/16/20 02:54 66 22 72/31 (45) 96 03/16/20 02:51 67 22 68/35 (46) 97 03/16/20 02:30 67 22 68/35 (46) 97 03/16/20 02:15 62 22 97/55 (69) 91 03/16/20 02:00 104/55 03/16/20 02:00 22 104/55 Mechanical Ventilator 100 03/16/20 02:00 22 Mechanical Ventilator 100 03/16/20 02:00 59 23 104/55 (71) 97 03/16/20 01:45 62 21 105/60 (75) 99 03/16/20 01:30 64 22 103/59 (74) 94 03/16/20 01:15 67 19 96/56 (69) 95 03/16/20 01:12 89 24 100 03/16/20 01:08 91/46 03/16/20 01:08 22 91/46 Mechanical Ventilator 100 03/16/20 01:00 65 22 91/46 (61) 95 03/16/20 01:00 96/56 03/16/20 01:00 22 96/56 Mechanical Ventilator 100 03/16/20 01:00 22 Mechanical Ventilator 100 03/16/20 00:45 67 21 94/50 (65) 93 03/16/20 00:30 65 22 90/51 (64) 96 03/16/20 00:15 65 22 93/51 (65) 95 03/16/20 00:00 66 22 100/56 (71) 96 03/16/20 00:00 Mechanical Ventilator 03/16/20 00:00 100 03/16/20 00:00 93/51 03/16/20 00:00 22 93/51 Mechanical Ventilator 100 03/16/20 00:00 22 Mechanical Ventilator 100 03/16/20 00:00 65 03/15/20 23:45 62 22 91/54 (66) 98 03/15/20 23:30 67 22 100/50 (67) 95 03/15/20 23:20 100 23 100 03/15/20 23:15 65 22 90/52 (65) 98 03/15/20 23:00 90/52 03/15/20 23:00 22 90/52 Mechanical Ventilator 100 03/15/20 23:00 22 Mechanical Ventilator 100 03/15/20 23:00 67 17 105/59 (74) 99 03/15/20 22:45 63 13 96/57 (70) 99 03/15/20 22:30 60 22 92/46 (61) 100 03/15/20 22:15 64 22 99/52 (68) 100 03/15/20 22:00 62 22 100/56 (71) 100 03/15/20 22:00 99/52 03/15/20 22:00 20 99/52 Mechanical Ventilator 100 03/15/20 22:00 20 Mechanical Ventilator 100 03/15/20 21:45 20 100/56 Mechanical Ventilator 100 03/15/20 21:45 72 21 107/59 (75) 99 03/15/20 21:30 63 19 105/62 (76) 99 03/15/20 21:30 20 107/59 Mechanical Ventilator 100 03/15/20 21:17 99.0 03/15/20 21:16 112/65 03/15/20 21:15 20 105/62 Mechanical Ventilator 100 03/15/20 21:15 63 3 101/61 (74) 99 03/15/20 21:00 100 03/15/20 21:00 20 116/65 Mechanical Ventilator 100 03/15/20 21:00 20 Mechanical Ventilator 100 03/15/20 21:00 74 23 112/65 (81) 95 03/15/20 20:59 100 22 100 4/29/20 20:45 20 100/46 Mechanical Ventilator 100 03/15/20 20:45 67 22 100/56 (71) 100 03/15/20 20:30 22 100/56 Mechanical Ventilator 100 03/15/20 20:30 22 Mechanical Ventilator 100 03/15/20 20:30 68 22 99/58 (72) 100 Intake and Output 03/15/20 03/16/20 19:00 07:00 Intake Total 751.423 ml 1831.321 ml Output Total 715 ml 150 ml Balance 36.423 ml 1681.321 ml IV Total 751.423 ml 1811.321 ml Tube Feeding 20 ml Output Urine Total 715 ml 150 ml Laboratory Tests 03/16/20 04:54: White Blood Count 13.1#H, Red Blood Count 3.24L, Hemoglobin 10.8L, Hematocrit 32.3L, Mean Corpuscular Volume 100H, Mean Corpuscular Hemoglobin 33.5H, Mean Corpuscular Hemoglobin Concent 33.6, Red Cell Distribution Width 16.9H, Platelet Count 118L, Mean Platelet Volume 6.6, Neutrophils (%) (Auto) 75.1H, Lymphocytes (%) (Auto) 13.6L, Monocytes (%) (Auto) 5.2, Eosinophils (%) (Auto) 5.4H, Basophils (%) (Auto) 0.7, Sodium Level 132L, Potassium Level 3.5, Chloride Level 95L, Carbon Dioxide Level 34H, Anion Gap 3L, Blood Urea Nitrogen 8, Creatinine 0.9, Estimat Glomerular Filtration Rate > 60, Glucose Level 140H, Calcium Level 7.9L, Magnesium Level 1.9, Total Bilirubin 1.7H, Direct Bilirubin 0.8H, Aspartate Amino Transf (AST/SGOT) 73H, Alanine Aminotransferase (ALT/SGPT ) 10L, Alkaline Phosphatase 105, Total Protein 8.3H, Albumin 1.8L, Globulin 6.5 , Albumin/Globulin Ratio 0.3L, Triglycerides Level 116 03/16/20 07:22: Arterial Blood pH 7.401, Arterial Blood Partial Pressure CO2 54.4H, Arterial Blood Partial Pressure O2 72.6L, Arterial Blood HCO3 33.0H, Arterial Blood Oxygen Saturation 94.0L, Arterial Blood Base Excess 7.0H, Joaquin Test Positive 03/16/20 15:43: Arterial Blood pH 7.400, Arterial Blood Partial Pressure CO2 46.8H, Arterial Blood Partial Pressure O2 69.6L, Arterial Blood HCO3 28.3H, Arterial Blood Oxygen Saturation 93.0L, Arterial Blood Base Excess 3H, Joaquin Test Positive Height (Feet): 5 Height (Inches): 1.00 Weight (Pounds): 239 Celso Moreno MD Mar 16, 2020 20:29
--- NOTE | 2020-03-16 23:52 | Pulmonolgy Critical Care Note ---
Critical Care - Asmt/Plan Assessment/Plan: Pulmonary CCM Progress Note HPI Patient is a 59 year old woman with significant obesity, admitted with bilateral lower extremity cellulitis, had complained of increased swelling and redness to both of her feet and legs Had elevated BNP on admission, persistent edema since admission, worsening hypoxia, LE DVT (right) negative for DVT. 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 COVID 19 positive, Pneumonia VQ no significant perfusion abnormality Prev LE dupplex negative High D Dimer level Despite being diuresed, improving infiltrates on CXR, on ACPC,Proned Intubated, PEEP 14 Seen earlier Allergies: No Known Allergies Past Medical History: Obesity, Cirrhosis, Anemia, Anxiety, Cellulitis All Other Systems: negative except mentioned in HPI Physical Exam Vital Signs Noted General Appearance: Obese, Sedated,intubated Head: normocephalic, atraumatic Eyes: bilateral eye PERRL, bilateral eye EOMI ENT: EOM grossly intact, moist MM, no LN Respiratory: lungs clear, bilateral rhonchi Cardiovascular: regular rate, rhythm, HS1, HS2 RRR Gastrointestinal: Obese, soft non tender, ND Musculoskeletal: Significant edema and erythema bilateral lower extremity, patient also has crusting on both feet, Neurologic: seadted, no focalsigns Impression: Bilateral Lower Extremity Cellulitis Elevated NPA, severe bilateral edema Covid Pneumonia Worsening hypoxia, PaO2 less than 60 on 100%, elevated PCO2 of 48, no intubated Cirrhosis Splenomegaly Anemia Anxiety Plan IV Antibiotics per ID Surgery following for wounds Hematology following for anemia, observing for Neutropenia Diurese PRN Monitor labs Bronchodilators PPX - SCD, Lovenox Echocardiogram AC PC Proning NPO as will need intubation if deterioration continues IV mainenance fluids Supplement electrolytes Albuterol PRN SW Patients daughter Tri - discussed grave prognosis, suggested DNAR - will consider DW Phamacist - Remdesavir not available on compassionate basis Labs Noted Chest X-Ray: Cardiomegaly, left lower lobe atelectasis versus effusion, worsening infiltrates/congestion Subjective ROS Limited/Unobtainable: No Constitutional: Reports: no symptoms Gastrointestinal/Abdominal: Reports: no symptoms Musculoskeletal: Reports: other - SOB Allergies: Coded Allergies: No Known Allergies (Unverified , 02/29/20) ICU time 50 minutes Critical Care - Objective Last 24 Hour Vital Signs Date Time Temp Pulse Resp B/P (MAP) Pulse Ox O2 Delivery O2 Flow Rate FiO2 03/16/20 23:00 120/55 03/16/20 23:00 120/55 03/16/20 23:00 20 120/55 Mechanical Ventilator 100 03/16/20 23:00 20 Mechanical Ventilator 100 03/16/20 22:54 91/54 03/16/20 22:31 77 26 100 03/16/20 22:30 15 111/62 Mechanical Ventilator 100 03/16/20 22:00 20 Mechanical Ventilator 100 03/16/20 21:30 72 19 138/57 (84) 82 03/16/20 21:15 74 23 137/71 (93) 82 03/16/20 21:00 75 18 133/66 (88) 81 03/16/20 21:00 133/66 03/16/20 21:00 20 133/66 Mechanical Ventilator 100 03/16/20 21:00 20 Mechanical Ventilator 100 03/16/20 20:45 76 22 128/72 (90) 82 03/16/20 20:30 61 26 119/63 (81) 93 03/16/20 20:15 63 26 90/58 (69) 85 03/16/20 20:00 Mechanical Ventilator 03/16/20 20:00 100 03/16/20 20:00 98/55 03/16/20 20:00 22 98/55 Mechanical Ventilator 100 03/16/20 20:00 22 Mechanical Ventilator 100 03/16/20 20:00 98.9 56 9 98/55 (69) 72 03/16/20 19:56 102/57 03/16/20 19:45 56 5 102/57 (72) 78 03/16/20 19:30 60 0 94/52 (66) 68 03/16/20 19:15 55 26 99/57 (71) 89 03/16/20 19:06 64 26 100 03/16/20 19:00 55 26 121/51 (74) 96 03/16/20 19:00 121/51 03/16/20 19:00 26 121/51 Mechanical Ventilator 100 03/16/20 19:00 26 Mechanical Ventilator 100 03/16/20 18:45 55 26 118/78 (91) 95 03/16/20 18:30 55 26 113/45 (67) 95 03/16/20 18:21 112/56 03/16/20 18:15 26 Mechanical Ventilator 100 03/16/20 18:15 54 26 112/56 (74) 95 03/16/20 18:00 54 26 108/56 (73) 95 03/16/20 18:00 108/56 03/16/20 18:00 26 108/56 Mechanical Ventilator 100 03/16/20 18:00 26 Mechanical Ventilator 100 03/16/20 17:45 54 26 105/59 (74) 93 03/16/20 17:30 54 26 86/72 (77) 93 03/16/20 17:22 58 26 100 03/16/20 17:15 55 26 104/72 (83) 91 03/16/20 17:12 26 104/74 Mechanical Ventilator 100 03/16/20 17:00 55 26 104/74 (84) 88 03/16/20 17:00 104/74 03/16/20 17:00 26 104/74 Mechanical Ventilator 100 03/16/20 17:00 26 Mechanical Ventilator 100 03/16/20 16:00 Mechanical Ventilator 03/16/20 16:00 100 03/16/20 16:00 108/49 03/16/20 16:00 26 108/49 Mechanical Ventilator 100 03/16/20 16:00 26 Mechanical Ventilator 100 03/16/20 16:00 53 03/16/20 16:00 98.4 52 26 108/49 (68) 94 03/16/20 15:30 117/96 03/16/20 15:30 26 Mechanical Ventilator 100 03/16/20 15:30 72 16 117/96 (103) 96 03/16/20 15:15 54 21 134/65 (88) 97 03/16/20 15:00 134/64 03/16/20 15:00 26 134/64 Mechanical Ventilator 100 03/16/20 15:00 26 Mechanical Ventilator 100 03/16/20 15:00 53 19 134/64 (87) 95 03/16/20 14:52 53 26 100 03/16/20 14:45 53 19 133/67 (89) 99 03/16/20 14:30 53 23 129/65 (86) 98 03/16/20 14:30 26 Mechanical Ventilator 100 03/16/20 14:19 122/60 03/16/20 14:15 52 25 122/60 (80) 95 03/16/20 14:13 100 03/16/20 14:00 117/62 03/16/20 14:00 26 117/62 Mechanical Ventilator 100 03/16/20 14:00 26 Mechanical Ventilator 100 03/16/20 14:00 52 15 117/62 (80) 98 03/16/20 13:45 53 19 102/57 (72) 97 03/16/20 13:30 98.3 55 12 89/51 (64) 87 03/16/20 13:30 22 89/51 Mechanical Ventilator 100 03/16/20 13:15 56 22 82/47 (59) 79 03/16/20 13:00 88/50 03/16/20 13:00 22 88/50 Mechanical Ventilator 100 03/16/20 13:00 22 Mechanical Ventilator 100 03/16/20 13:00 56 22 88/50 (63) 80 03/16/20 12:30 57 22 87/54 (65) 74 03/16/20 12:15 58 22 91/51 (64) 73 03/16/20 12:10 22 91/49 Mechanical Ventilator 100 03/16/20 12:00 53 03/16/20 12:00 91/51 03/16/20 12:00 22 91/51 Mechanical Ventilator 100.0 03/16/20 12:00 22 Mechanical Ventilator 100 03/16/20 12:00 Mechanical Ventilator 03/16/20 12:00 100 03/16/20 12:00 99.8 56 22 91/49 (63) 80 03/16/20 11:45 58 22 91/47 (62) 67 03/16/20 11:30 55 22 96/50 (65) 77 03/16/20 11:09 55 22 100 03/16/20 11:00 54 22 106/59 (75) 92 03/16/20 11:00 109/64 03/16/20 11:00 22 109/64 Mechanical Ventilator 100 03/16/20 11:00 22 Mechanical Ventilator 100 03/16/20 10:30 62 22 89/42 (58) 92 03/16/20 10:15 60 22 89/44 (59) 97 03/16/20 10:07 60 22 81/38 (52) 93 03/16/20 10:00 62 22 68/27 (41) 93 03/16/20 10:00 85/34 03/16/20 10:00 22 81/38 Mechanical Ventilator 100 03/16/20 10:00 22 Mechanical Ventilator 100 03/16/20 09:30 59 22 89/39 (56) 96 03/16/20 09:00 62 22 91/44 (60) 95 03/16/20 09:00 91/44 03/16/20 09:00 22 91/44 Mechanical Ventilator 100 03/16/20 09:00 22 Mechanical Ventilator 100 03/16/20 08:40 22 98/46 Mechanical Ventilator 100 03/16/20 08:30 64 22 98/46 (63) 98 03/16/20 08:00 Mechanical Ventilator 03/16/20 08:00 100 03/16/20 08:00 97/43 03/16/20 08:00 22 97/43 Mechanical Ventilator 100 03/16/20 08:00 22 Mechanical Ventilator 100 03/16/20 08:00 63 03/16/20 08:00 100.2 62 22 97/43 (61) 96 03/16/20 07:30 63 22 96/43 (60) 97 03/16/20 07:08 97 22 100 03/16/20 07:00 103/53 03/16/20 07:00 22 103/53 Mechanical Ventilator 100 03/16/20 07:00 22 Mechanical Ventilator 100 03/16/20 07:00 60 103/50 (67) 03/16/20 06:45 59 22 103/50 (67) 97 03/16/20 06:30 58 22 102/48 (66) 96 03/16/20 06:15 58 22 99/50 (66) 95 03/16/20 06:00 58 22 102/48 (66) 95 03/16/20 06:00 102/48 03/16/20 06:00 22 102/48 Mechanical Ventilator 100 03/16/20 06:00 22 Mechanical Ventilator 100 03/16/20 05:45 58 22 102/49 (66) 96 03/16/20 05:30 58 22 99/51 (67) 96 03/16/20 05:23 102/49 03/16/20 05:23 22 102/49 Mechanical Ventilator 100 03/16/20 05:15 22 99/51 Mechanical Ventilator 100 03/16/20 05:15 59 22 102/49 (66) 96 03/16/20 05:00 102/47 03/16/20 05:00 22 102/47 Mechanical Ventilator 100 03/16/20 05:00 22 Mechanical Ventilator 100 03/16/20 05:00 59 22 102/47 (65) 98 03/16/20 04:45 59 22 98/43 (61) 97 03/16/20 04:45 22 102/47 Mechanical Ventilator 100 03/16/20 04:42 92 26 100 03/16/20 04:33 68 21 106/54 (71) 91 03/16/20 04:30 22 106/54 Mechanical Ventilator 100 03/16/20 04:30 67 22 89/56 (67) 87 03/16/20 04:15 22 89/56 Mechanical Ventilator 100 03/16/20 04:15 62 22 110/54 (72) 92 03/16/20 04:00 100 03/16/20 04:00 66 03/16/20 04:00 110/54 03/16/20 04:00 22 110/54 Mechanical Ventilator 100 03/16/20 04:00 22 Mechanical Ventilator 100 03/16/20 04:00 Mechanical Ventilator 03/16/20 04:00 98.9 59 22 111/48 (69) 91 03/16/20 03:45 22 111/48 Mechanical Ventilator 100 03/16/20 03:45 58 22 114/51 (72) 95 03/16/20 03:30 22 114/51 Mechanical Ventilator 100 03/16/20 03:30 57 22 113/48 (69) 96 03/16/20 03:22 57 22 104/50 (68) 96 03/16/20 03:15 22 104/50 Mechanical Ventilator 100 03/16/20 03:15 60 21 81/37 (52) 97 03/16/20 03:00 63 22 79/40 (53) 98 03/16/20 03:00 82/37 03/16/20 03:00 22 82/37 Mechanical Ventilator 100 03/16/20 03:00 22 Mechanical Ventilator 100 03/16/20 02:57 91 24 100 03/16/20 02:54 66 22 72/31 (45) 96 03/16/20 02:51 67 22 68/35 (46) 97 03/16/20 02:30 67 22 68/35 (46) 97 03/16/20 02:15 62 22 97/55 (69) 91 03/16/20 02:00 104/55 03/16/20 02:00 22 104/55 Mechanical Ventilator 100 03/16/20 02:00 22 Mechanical Ventilator 100 03/16/20 02:00 59 23 104/55 (71) 97 03/16/20 01:45 62 21 105/60 (75) 99 03/16/20 01:30 64 22 103/59 (74) 94 03/16/20 01:15 67 19 96/56 (69) 95 03/16/20 01:12 89 24 100 03/16/20 01:08 91/46 03/16/20 01:08 22 91/46 Mechanical Ventilator 100 03/16/20 01:00 65 22 91/46 (61) 95 03/16/20 01:00 96/56 03/16/20 01:00 22 96/56 Mechanical Ventilator 100 03/16/20 01:00 22 Mechanical Ventilator 100 03/16/20 00:45 67 21 94/50 (65) 93 03/16/20 00:30 65 22 90/51 (64) 96 03/16/20 00:15 65 22 93/51 (65) 95 03/16/20 00:00 66 22 100/56 (71) 96 03/16/20 00:00 Mechanical Ventilator 03/16/20 00:00 100 03/16/20 00:00 93/51 03/16/20 00:00 22 93/51 Mechanical Ventilator 100 03/16/20 00:00 22 Mechanical Ventilator 100 03/16/20 00:00 65 Accucheck: 180 Critical Care - Subjective ROS Limited/Unobtainable: No Condition: critical EKG Rhythm: Sinus Bradycardia FI02: 100 Vent Support Breath Rate: 26 Vent Support Mode: AC Vent Tidal Volume: 400 Sputum Amount: Small PEEP: 14.0 PIP: 37 Tube Feeding Amount: 10 I&O: Intake and Output 03/15/20 03/16/20 19:00 07:00 Intake Total 751.423 ml 1831.321 ml Output Total 715 ml 150 ml Balance 36.423 ml 1681.321 ml IV Total 751.423 ml 1811.321 ml Tube Feeding 20 ml Output Urine Total 715 ml 150 ml ET-Tube: 7.5 ET Position: 21 Doron Carrillo MD Mar 16, 2020 23:52
[2020-03-17] VITALS (93 sets, daily range): BP systolic 82–159; BP diastolic 49–77
[2020-03-17] MEDS: D5NS 1,000 ML IV SCH ×3 (02:25→21:45)
[2020-03-17] MEDS: propofoL 1,000mg/100ml 100 ML IV SCH ×3 (02:32→19:10)
--- NOTE | 2020-03-17 04:00 | Progress Note ---
DATE: 03/16/2020 SUBJECTIVE: The patient is now in the ICU. She has been having waxing and waning of consciousness and is feverish. Blood pressure is high. The patient has episodes of agitation this morning, however, manageable. She is now deteriorating, congruent mood, unable to be engaged. ASSESSMENT: Acute encephalopathy. PLAN: Going to be intubated. Justice Manriquez M.D. DR: Praveen JOB#: [id number] CC:
[2020-03-17] MEDS: NovoLOG Insulin Flexpen SUBQ SCH ×3 (05:26→17:53)
[2020-03-17] MEDS: Meropenem 1 GM in NS 55 ML IVPB SCH ×3 (05:26→21:46)
--- NOTE | 2020-03-17 07:13 | Hematology/Onc Progress Note ---
Assessment/Plan Assessment/Plan Assessment and Recs # Pancytopenia -- multiple etiologies could be related to underlying liver disease, medication-induced, infection versus viral syndrome versus underlying bone marrow cause, in this case, has severe liver disease and cirrhosis, HEP C++ , also cellulitis --> peripheral smear has been ordered and does not show significant abnormalities and none noted --> Medications have been reviewed --> Continue to monitor for improvement, trend cbc --> Hep panel and HIV are both negative --> US abd ordered to r/o cirrhosis and hepatosplenomegaly ->CIRRHOSIS IS NOTED , LARGE SPLEEN --> reverse isolation if ANC is <2000 --> Give neupogen if ANC <1000 --> Transfuse if hgb <7, with 1 unit prbc --> anemia panel ordered as well-->CW acd --> hgb trend 7-->7.1-->8.4-->8.2 -->8.7-->9.9 --> plt 145k-->152-->162k-->149k --> wbc 3.4-->3.5->3.9->4.4 --> abx: sameer/rifaximin # Cellulitis of the lower extremities --> continue abx as needed as per id --> Started on IV antibiotics-->azithro/cefepime --> as per surg recs, wound care # Ftt --> remains on mirtazapine # Elevated LFTS --> as per gi --> due to cirrhosis # respiratory failure --> s/p intubation 03/16 # Dvt ppx lovenox sq The timing of this note does not necessarily reflect the time of the patient was seen. Greatly appreciate consultation. Subjective Allergies: Coded Allergies: No Known Allergies (Unverified , 02/29/20) All Systems: reviewed and negative except above Subjective 03/02 no events, no bleeding, hgb 7.1, no hemolysis 03/03 s/p blood, hgb improved to 8.4, stool ob negtive, on abx 03/05 asleep, no acute distress, hgb 8.2 03/06 remains comfortable, on abx, plt remains low 03/07 is on nonrebreather, no night sweats, labs are noted 03/08 labs reviewed, being diuresed, seen by cards, psych, labs noted 03/09 lasix adjusted, wbc remains low at 3.9, reviewed meds, smear 03/10 no night sweats, no bleeding, labs noted, smear noted 03/12 labs noted, none completed, have reordered, cellulitis better 03/13 is continuing with chest pain, cards aware, no further studies until covid neg 03/14 labs noted, no bleeding, diuresis as needed, hgb stable 03/15 alseep is cooperative, no bleeding, meds noted 03/16 no bleeding or chills, hgb 10.8, no night sweats, no major events 03/17 now intubated, no bleeding, labs noted, dw rn Objective Objective Current Medications Medications (Trade) Dose Ordered Sig/Dolores Route PRN Reason Start Time Stop Time Status Last Admin Dose Admin Acetaminophen (Tylenol) 650 mg Q4H PRN ORAL Mild Pain (Pain Scale 1-3) 03/13/20 14:53 04/12/20 14:52 03/17/20 02:33 Acetaminophen (Tylenol) 650 mg Q4H PRN ORAL Temp >100 03/13/20 14:53 04/12/20 14:52 Azithromycin (Zithromax) 500 mg DAILY ORAL 03/14/20 09:00 03/20/20 10:59 03/16/20 08:37 Chlorhexidine Gluconate (Lucretia-Hex 2%) 1 applic DAILY@2000 TOPIC 03/13/20 20:00 06/11/20 19:59 03/16/20 19:56 Dextrose (Dextrose 50%) 25 ml Q30M PRN IV Hypoglycemia 03/16/20 09:30 06/14/20 09:29 Dextrose (Dextrose 50%) 50 ml Q30M PRN IV Hypoglycemia 03/16/20 09:30 06/14/20 09:29 Dextrose/Sodium Chloride 1,000 ml @ 60 mls/hr [id number] IV 03/16/20 10:00 04/15/20 09:59 03/17/20 02:25 Diphenhydramine HCl (Benadryl) 25 mg Q4H PRN ORAL moderate itching 03/13/20 14:54 04/12/20 14:53 Diphenhydramine HCl (Benadryl) 50 mg Q4H PRN ORAL SEVERE ITCHING 03/13/20 14:53 04/12/20 14:52 Dopamine HCl/ Dextrose 250 ml @ 0 mls/hr Q24H IV 03/16/20 19:30 06/14/20 19:29 03/16/20 19:56 Enoxaparin Sodium (Lovenox) 40 mg DAILY SUBQ 03/14/20 09:00 06/10/20 08:59 03/16/20 08:38 Fentanyl Citrate 2500 mcg/Sodium Chloride 250 ml @ 0 mls/hr Q24H IV 03/15/20 18:30 03/22/20 18:29 03/16/20 18:15 Furosemide (Lasix) 20 mg BID IV 03/15/20 09:00 04/14/20 08:59 03/16/20 17:13 Insulin Aspart (NovoLOG) Q6HR SUBQ 03/16/20 12:00 06/14/20 11:59 03/17/20 05:26 Magnesium Sulfate 100 ml @ 100 mls/hr ONCE ONCE IVPB 03/17/20 12:00 03/17/20 12:59 Meropenem 1 gm/ Sodium Chloride 55 ml @ 110 mls/hr Q8HR IVPB 03/16/20 14:00 03/21/20 13:59 03/17/20 05:26 Mirtazapine (Remeron) 7.5 mg BEDTIME PRN ORAL SLEEP 03/13/20 14:55 06/11/20 14:54 Norepinephrine Bitartrate 8 mg/ Dextrose 508 ml @ 0 mls/hr Q24H IV 03/15/20 21:00 04/14/20 20:59 03/17/20 03:30 Potassium Chloride (K-Dur) 20 meq BID ORAL 03/14/20 09:00 06/11/20 08:59 03/16/20 17:13 Propofol 100 ml @ 0 mls/hr Q24H IV 03/15/20 18:00 03/17/20 17:59 03/17/20 02:32 Vasopressin 100 units/Sodium Chloride 100 ml @ 0 mls/hr Q24H PRN IV For hypotension 03/16/20 11:00 04/15/20 10:59 03/16/20 10:31 Last 24 Hour Vital Signs Date Time Temp Pulse Resp B/P (MAP) Pulse Ox O2 Delivery O2 Flow Rate FiO2 03/17/20 06:30 70 22 123/56 (78) 91 03/17/20 06:15 99.8 71 19 127/73 (91) 89 03/17/20 06:00 72 19 119/60 (79) 92 03/17/20 06:00 119/60 03/17/20 06:00 119/60 03/17/20 06:00 19 119/60 Mechanical Ventilator 100 03/17/20 06:00 19 Mechanical Ventilator 100 03/17/20 05:45 75 20 123/68 (86) 92 03/17/20 05:30 71 20 128/72 (90) 90 03/17/20 05:15 75 23 122/63 (82) 89 03/17/20 05:00 127/65 03/17/20 05:00 127/65 03/17/20 05:00 19 127/65 Mechanical Ventilator 100 03/17/20 05:00 19 Mechanical Ventilator 100 03/17/20 05:00 71 23 127/65 (85) 88 03/17/20 04:45 70 24 138/75 (96) 94 03/17/20 04:41 71 27 100 03/17/20 04:30 70 18 137/73 (94) 91 03/17/20 04:15 69 22 139/76 (97) 92 03/17/20 04:00 Mechanical Ventilator 03/17/20 04:00 139/76 03/17/20 04:00 139/76 03/17/20 04:00 19 139/76 Mechanical Ventilator 100 03/17/20 04:00 20 Mechanical Ventilator 100 03/17/20 04:00 100 03/17/20 04:00 100.1 70 24 132/64 (86) 92 03/17/20 03:45 69 18 123/70 (87) 88 03/17/20 03:35 100.0 03/17/20 03:30 82 23 100/57 (71) 89 03/17/20 03:30 137/68 03/17/20 03:15 70 22 137/68 (91) 90 03/17/20 03:01 70 03/17/20 03:00 70 23 136/70 (92) 91 03/17/20 03:00 137/68 03/17/20 03:00 137/68 03/17/20 03:00 26 136/70 Mechanical Ventilator 100 03/17/20 03:00 21 Mechanical Ventilator 100 03/17/20 02:45 66 19 137/68 (91) 91 03/17/20 02:32 26 114/65 Mechanical Ventilator 100 03/17/20 02:30 66 22 124/64 (84) 90 03/17/20 02:30 124/64 03/17/20 02:30 124/64 03/17/20 02:25 74 26 100 03/17/20 02:15 80 24 114/65 (81) 82 03/17/20 02:00 124/63 03/17/20 02:00 124/63 03/17/20 02:00 21 124/63 Mechanical Ventilator 100 03/17/20 02:00 21 Mechanical Ventilator 100 03/17/20 02:00 67 20 124/63 (83) 73 03/17/20 01:45 66 20 132/77 (95) 80 03/17/20 01:30 66 17 137/66 (89) 83 03/17/20 01:15 67 18 135/67 (89) 84 03/17/20 01:00 131/73 03/17/20 01:00 131/73 03/17/20 01:00 20 131/73 Mechanical Ventilator 100 03/17/20 01:00 20 Mechanical Ventilator 100 03/17/20 01:00 68 17 131/73 (92) 78 03/17/20 00:45 67 13 131/70 (90) 85 03/17/20 00:30 65 22 130/66 (87) 84 03/17/20 00:15 76 19 121/57 (78) 85 03/17/20 00:09 75 03/17/20 00:00 100.1 73 12 124/68 (86) 93 03/17/20 00:00 124/68 03/17/20 00:00 124/68 03/17/20 00:00 20 124/68 Mechanical Ventilator 100 03/17/20 00:00 21 Mechanical Ventilator 100 03/17/20 00:00 Mechanical Ventilator 03/17/20 00:00 100 03/16/20 23:45 65 18 125/55 (78) 96 03/16/20 23:30 66 19 122/58 (79) 95 03/16/20 23:15 68 14 116/60 (78) 93 03/16/20 23:00 67 19 120/55 (76) 63 03/16/20 23:00 120/55 03/16/20 23:00 120/55 03/16/20 23:00 20 120/55 Mechanical Ventilator 100 03/16/20 23:00 20 Mechanical Ventilator 100 03/16/20 22:54 91/54 03/16/20 22:45 68 14 91/45 (60) 79 03/16/20 22:45 19 125/55 Mechanical Ventilator 100 03/16/20 22:31 77 26 100 03/16/20 22:30 15 111/62 Mechanical Ventilator 100 03/16/20 22:30 85 13 86/40 (55) 73 03/16/20 22:15 66 21 137/65 (89) 82 03/16/20 22:00 20 Mechanical Ventilator 100 03/16/20 22:00 67 20 138/69 (92) 87 03/16/20 21:30 72 19 138/57 (84) 82 03/16/20 21:15 74 23 137/71 (93) 82 03/16/20 21:00 75 18 133/66 (88) 81 03/16/20 21:00 133/66 03/16/20 21:00 20 133/66 Mechanical Ventilator 100 03/16/20 21:00 20 Mechanical Ventilator 100 03/16/20 20:45 76 22 128/72 (90) 82 03/16/20 20:30 61 26 119/63 (81) 93 03/16/20 20:15 63 26 90/58 (69) 85 03/16/20 20:00 Mechanical Ventilator 03/16/20 20:00 100 03/16/20 20:00 98/55 03/16/20 20:00 22 98/55 Mechanical Ventilator 100 03/16/20 20:00 22 Mechanical Ventilator 100 03/16/20 20:00 98.9 56 9 98/55 (69) 72 03/16/20 19:56 102/57 03/16/20 19:45 56 5 102/57 (72) 78 03/16/20 19:40 55 03/16/20 19:30 60 0 94/52 (66) 68 03/16/20 19:15 55 26 99/57 (71) 89 03/16/20 19:06 64 26 100 03/16/20 19:00 55 26 121/51 (74) 96 03/16/20 19:00 121/51 03/16/20 19:00 26 121/51 Mechanical Ventilator 100 03/16/20 19:00 26 Mechanical Ventilator 100 03/16/20 18:45 55 26 118/78 (91) 95 03/16/20 18:30 55 26 113/45 (67) 95 03/16/20 18:21 112/56 03/16/20 18:15 26 Mechanical Ventilator 100 03/16/20 18:15 54 26 112/56 (74) 95 03/16/20 18:00 54 26 108/56 (73) 95 03/16/20 18:00 108/56 03/16/20 18:00 26 108/56 Mechanical Ventilator 100 03/16/20 18:00 26 Mechanical Ventilator 100 03/16/20 17:45 54 26 105/59 (74) 93 03/16/20 17:30 54 26 86/72 (77) 93 03/16/20 17:22 58 26 100 03/16/20 17:15 55 26 104/72 (83) 91 03/16/20 17:12 26 104/74 Mechanical Ventilator 100 03/16/20 17:00 55 26 104/74 (84) 88 03/16/20 17:00 104/74 03/16/20 17:00 26 104/74 Mechanical Ventilator 100 03/16/20 17:00 26 Mechanical Ventilator 100 03/16/20 16:00 Mechanical Ventilator 03/16/20 16:00 100 03/16/20 16:00 108/49 03/16/20 16:00 26 108/49 Mechanical Ventilator 100 03/16/20 16:00 26 Mechanical Ventilator 100 03/16/20 16:00 53 03/16/20 16:00 98.4 52 26 108/49 (68) 94 03/16/20 15:30 117/96 03/16/20 15:30 26 Mechanical Ventilator 100 03/16/20 15:30 72 16 117/96 (103) 96 03/16/20 15:15 54 21 134/65 (88) 97 03/16/20 15:00 134/64 03/16/20 15:00 26 134/64 Mechanical Ventilator 100 03/16/20 15:00 26 Mechanical Ventilator 100 03/16/20 15:00 53 19 134/64 (87) 95 03/16/20 14:52 53 26 100 03/16/20 14:45 53 19 133/67 (89) 99 03/16/20 14:30 53 23 129/65 (86) 98 03/16/20 14:30 26 Mechanical Ventilator 100 03/16/20 14:19 122/60 03/16/20 14:15 52 25 122/60 (80) 95 03/16/20 14:13 100 03/16/20 14:00 117/62 03/16/20 14:00 26 117/62 Mechanical Ventilator 100 03/16/20 14:00 26 Mechanical Ventilator 100 03/16/20 14:00 52 15 117/62 (80) 98 03/16/20 13:45 53 19 102/57 (72) 97 03/16/20 13:30 98.3 55 12 89/51 (64) 87 03/16/20 13:30 22 89/51 Mechanical Ventilator 100 03/16/20 13:15 56 22 82/47 (59) 79 03/16/20 13:00 88/50 03/16/20 13:00 22 88/50 Mechanical Ventilator 100 03/16/20 13:00 22 Mechanical Ventilator 100 03/16/20 13:00 56 22 88/50 (63) 80 03/16/20 12:30 57 22 87/54 (65) 74 03/16/20 12:15 58 22 91/51 (64) 73 03/16/20 12:10 22 91/49 Mechanical Ventilator 100 03/16/20 12:00 53 03/16/20 12:00 91/51 03/16/20 12:00 22 91/51 Mechanical Ventilator 100.0 03/16/20 12:00 22 Mechanical Ventilator 100 03/16/20 12:00 Mechanical Ventilator 03/16/20 12:00 100 03/16/20 12:00 99.8 56 22 91/49 (63) 80 03/16/20 11:45 58 22 91/47 (62) 67 03/16/20 11:30 55 22 96/50 (65) 77 03/16/20 11:09 55 22 100 03/16/20 11:00 54 22 106/59 (75) 92 03/16/20 11:00 109/64 03/16/20 11:00 22 109/64 Mechanical Ventilator 100 03/16/20 11:00 22 Mechanical Ventilator 100 03/16/20 10:30 62 22 89/42 (58) 92 03/16/20 10:15 60 22 89/44 (59) 97 03/16/20 10:07 60 22 81/38 (52) 93 03/16/20 10:00 62 22 68/27 (41) 93 03/16/20 10:00 85/34 03/16/20 10:00 22 81/38 Mechanical Ventilator 100 03/16/20 10:00 22 Mechanical Ventilator 100 03/16/20 09:30 59 22 89/39 (56) 96 03/16/20 09:00 62 22 91/44 (60) 95 03/16/20 09:00 91/44 03/16/20 09:00 22 91/44 Mechanical Ventilator 100 03/16/20 09:00 22 Mechanical Ventilator 100 03/16/20 08:40 22 98/46 Mechanical Ventilator 100 03/16/20 08:30 64 22 98/46 (63) 98 03/16/20 08:00 Mechanical Ventilator 03/16/20 08:00 100 03/16/20 08:00 97/43 03/16/20 08:00 22 97/43 Mechanical Ventilator 100 03/16/20 08:00 22 Mechanical Ventilator 100 03/16/20 08:00 63 03/16/20 08:00 100.2 62 22 97/43 (61) 96 03/16/20 07:30 63 22 96/43 (60) 97 03/16/20 07:08 97 22 100 03/16/20 07:00 103/53 03/16/20 07:00 22 103/53 Mechanical Ventilator 100 03/16/20 07:00 22 Mechanical Ventilator 100 03/16/20 07:00 60 103/50 (67) 03/16/20 06:45 59 22 103/50 (67) 97 03/16/20 06:30 58 22 102/48 (66) 96 03/16/20 06:15 58 22 99/50 (66) 95 03/16/20 06:00 58 22 102/48 (66) 95 03/16/20 06:00 102/48 03/16/20 06:00 22 102/48 Mechanical Ventilator 100 03/16/20 06:00 22 Mechanical Ventilator 100 03/16/20 05:45 58 22 102/49 (66) 96 03/16/20 05:30 58 22 99/51 (67) 96 03/16/20 05:23 102/49 03/16/20 05:23 22 102/49 Mechanical Ventilator 100 03/16/20 05:15 22 99/51 Mechanical Ventilator 100 03/16/20 05:15 59 22 102/49 (66) 96 03/16/20 05:00 102/47 03/16/20 05:00 22 102/47 Mechanical Ventilator 100 03/16/20 05:00 22 Mechanical Ventilator 100 03/16/20 05:00 59 22 102/47 (65) 98 03/16/20 04:45 59 22 98/43 (61) 97 03/16/20 04:45 22 102/47 Mechanical Ventilator 100 03/16/20 04:42 92 26 100 03/16/20 04:33 68 21 106/54 (71) 91 03/16/20 04:30 22 106/54 Mechanical Ventilator 100 03/16/20 04:30 67 22 89/56 (67) 87 03/16/20 04:15 22 89/56 Mechanical Ventilator 100 03/16/20 04:15 62 22 110/54 (72) 92 03/16/20 04:00 100 03/16/20 04:00 66 03/16/20 04:00 110/54 03/16/20 04:00 22 110/54 Mechanical Ventilator 100 03/16/20 04:00 22 Mechanical Ventilator 100 03/16/20 04:00 Mechanical Ventilator 03/16/20 04:00 98.9 59 22 111/48 (69) 91 03/16/20 03:45 22 111/48 Mechanical Ventilator 100 03/16/20 03:45 58 22 114/51 (72) 95 03/16/20 03:30 22 114/51 Mechanical Ventilator 100 03/16/20 03:30 57 22 113/48 (69) 96 03/16/20 03:22 57 22 104/50 (68) 96 03/16/20 03:15 22 104/50 Mechanical Ventilator 100 03/16/20 03:15 60 21 81/37 (52) 97 03/16/20 03:00 63 22 79/40 (53) 98 03/16/20 03:00 82/37 03/16/20 03:00 22 82/37 Mechanical Ventilator 100 03/16/20 03:00 22 Mechanical Ventilator 100 03/16/20 02:57 91 24 100 03/16/20 02:54 66 22 72/31 (45) 96 03/16/20 02:51 67 22 68/35 (46) 97 03/16/20 02:30 67 22 68/35 (46) 97 03/16/20 02:15 62 22 97/55 (69) 91 03/16/20 02:00 104/55 03/16/20 02:00 22 104/55 Mechanical Ventilator 100 03/16/20 02:00 22 Mechanical Ventilator 100 03/16/20 02:00 59 23 104/55 (71) 97 03/16/20 01:45 62 21 105/60 (75) 99 03/16/20 01:30 64 22 103/59 (74) 94 03/16/20 01:15 67 19 96/56 (69) 95 03/16/20 01:12 89 24 100 03/16/20 01:08 91/46 03/16/20 01:08 22 91/46 Mechanical Ventilator 100 03/16/20 01:00 65 22 91/46 (61) 95 03/16/20 01:00 96/56 03/16/20 01:00 22 96/56 Mechanical Ventilator 100 03/16/20 01:00 22 Mechanical Ventilator 100 03/16/20 00:45 67 21 94/50 (65) 93 03/16/20 00:30 65 22 90/51 (64) 96 03/16/20 00:15 65 22 93/51 (65) 95 03/16/20 00:00 66 22 100/56 (71) 96 03/16/20 00:00 Mechanical Ventilator 03/16/20 00:00 100 03/16/20 00:00 93/51 03/16/20 00:00 22 93/51 Mechanical Ventilator 100 03/16/20 00:00 22 Mechanical Ventilator 100 03/16/20 00:00 65 03/15/20 23:45 62 22 91/54 (66) 98 03/15/20 23:30 67 22 100/50 (67) 95 03/15/20 23:20 100 23 100 03/15/20 23:15 65 22 90/52 (65) 98 03/15/20 23:00 90/52 03/15/20 23:00 22 90/52 Mechanical Ventilator 100 03/15/20 23:00 22 Mechanical Ventilator 100 03/15/20 23:00 67 17 105/59 (74) 99 03/15/20 22:45 63 13 96/57 (70) 99 03/15/20 22:30 60 22 92/46 (61) 100 03/15/20 22:15 64 22 99/52 (68) 100 03/15/20 22:00 62 22 100/56 (71) 100 03/15/20 22:00 99/52 03/15/20 22:00 20 99/52 Mechanical Ventilator 100 03/15/20 22:00 20 Mechanical Ventilator 100 03/15/20 21:45 20 100/56 Mechanical Ventilator 100 03/15/20 21:45 72 21 107/59 (75) 99 03/15/20 21:30 63 19 105/62 (76) 99 03/15/20 21:30 20 107/59 Mechanical Ventilator 100 03/15/20 21:17 99.0 03/15/20 21:16 112/65 03/15/20 21:15 20 105/62 Mechanical Ventilator 100 03/15/20 21:15 63 3 101/61 (74) 99 03/15/20 21:00 100 03/15/20 21:00 20 116/65 Mechanical Ventilator 100 03/15/20 21:00 20 Mechanical Ventilator 100 03/15/20 21:00 74 23 112/65 (81) 95 03/15/20 20:59 100 22 100 03/15/20 20:45 20 100/46 Mechanical Ventilator 100 03/15/20 20:45 67 22 100/56 (71) 100 03/15/20 20:30 22 100/56 Mechanical Ventilator 100 03/15/20 20:30 22 Mechanical Ventilator 100 03/15/20 20:30 68 22 99/58 (72) 100 03/15/20 20:15 77 28 67/51 (56) 100 03/15/20 20:00 99.0 79 22 96/68 (77) 100 03/15/20 20:00 Mechanical Ventilator 03/15/20 20:00 22 67/51 Mechanical Ventilator 100 03/15/20 20:00 69 03/15/20 20:00 100 03/15/20 19:45 69 22 91/54 (66) 100 03/15/20 19:30 70 22 95/50 (65) 100 03/15/20 19:00 22 76/43 Mechanical Ventilator 100 03/15/20 19:00 76/43 03/15/20 19:00 74 22 76/43 (54) 100 03/15/20 18:58 100 22 100 03/15/20 18:30 77 22 91/52 (65) 100 03/15/20 18:15 84 22 105/63 (77) 97 03/15/20 18:00 98.5 94 22 163/79 (107) 94 03/15/20 18:00 100 03/15/20 18:00 22 135/98 100 03/15/20 18:00 163/79 03/15/20 17:56 98 22 93 Mechanical Ventilator 100 03/15/20 17:49 98 22 100 03/15/20 17:30 77 17 105/45 (65) 93 03/15/20 17:00 77 17 108/53 (71) 82 03/15/20 17:00 108/53 03/15/20 16:30 69 26 105/42 (63) 86 03/15/20 16:00 100.0 74 18 98/31 (53) 89 03/15/20 16:00 74 03/15/20 16:00 98/31 03/15/20 16:00 Non-Rebreather 15.0 03/15/20 15:00 74 19 98/43 (61) 93 03/15/20 15:00 98/43 03/15/20 14:30 77 18 101/46 (64) 94 03/15/20 14:00 73 27 97/44 (61) 84 03/15/20 14:00 97/44 03/15/20 13:30 79 20 113/57 (75) 93 03/15/20 13:00 113/57 03/15/20 13:00 75 25 90/34 (52) 91 03/15/20 12:30 81 17 104/48 (66) 87 03/15/20 12:15 72 22 90/52 (65) 91 03/15/20 12:00 Non-Rebreather 15.0 03/15/20 12:00 109/53 03/15/20 12:00 99.1 78 24 109/53 (71) 91 03/15/20 11:49 78 03/15/20 11:30 73 20 106/45 (65) 93 03/15/20 11:00 76 20 60/42 (48) 87 03/15/20 11:00 60/42 03/15/20 10:30 81 22 111/56 (74) 85 03/15/20 10:00 78 22 112/52 (72) 89 03/15/20 10:00 112/52 03/15/20 09:30 77 18 116/61 (79) 90 03/15/20 09:00 88/69 03/15/20 09:00 79 18 88/69 (75) 85 03/15/20 08:30 74 18 105/54 (71) 88 03/15/20 08:00 Non-Rebreather 15.0 03/15/20 08:00 108/59 03/15/20 08:00 99.0 74 18 108/59 (75) 87 03/15/20 07:48 70 03/15/20 07:30 73 18 102/43 (62) 88 Intake and Output 03/16/20 03/17/20 19:00 07:00 Intake Total 2766.731 ml 2478.6683 ml Output Total 360 ml 655 ml Balance 2406.731 ml 1823.6683 ml IV Total 2606.731 ml 2248.6683 ml Tube Feeding 40 ml 230 ml Other 120 ml Output Urine Total 360 ml 655 ml Labs Test 03/14/20 07:58 03/14/20 09:15 03/15/20 04:00 03/15/20 08:31 Arterial Blood pH 7.499 (7.350-7.450) 7.463 (7.350-7.450) Arterial Blood Partial Pressure CO2 50.2 mmHg (35.0-45.0) 49.2 mmHg (35.0-45.0) Arterial Blood Partial Pressure O2 51.1 mmHg (75.0-100.0) 52.1 mmHg (75.0-100.0) Arterial Blood HCO3 38.2 mmol/L (22.0-26.0) 34.4 mmol/L (22.0-26.0) Arterial Blood Oxygen Saturation 86.9 % (95-100) 85.6 % (95-100) Arterial Blood Base Excess 12.9 (-2-2) 9.5 (-2-2) Joaquin Test Positive Positive D-Dimer 8.06 mg/L FEU (0.00-0.49) Magnesium Level 1.4 MG/DL (1.8-2.4) 1.6 MG/DL (1.8-2.4) Ferritin 835 NG/ML (8-388) Total Bilirubin 1.3 MG/DL (0.2-1.0) 1.5 MG/DL (0.2-1.0) Direct Bilirubin 0.5 MG/DL (0.0-0.3) 0.4 MG/DL (0.0-0.3) Aspartate Amino Transf (AST/SGOT) 69 U/L (15-37) 74 U/L (15-37) Alanine Aminotransferase (ALT/SGPT) 17 U/L (12-78) 19 U/L (12-78) Alkaline Phosphatase 94 U/L (46-116) 98 U/L (46-116) Lactate Dehydrogenase 415 U/L (81-234) Troponin I 0.009 ng/mL (0.000-0.056) C-Reactive Protein, Quantitative 16.2 mg/dL (0.00-0.90) Pro-B-Type Natriuretic Peptide 624 pg/mL (0-125) Total Protein 7.7 G/DL (6.4-8.2) 8.0 G/DL (6.4-8.2) Albumin 1.7 G/DL (3.4-5.0) 1.7 G/DL (3.4-5.0) Interleukin 6 (IL-6) 522.5 pg/mL (0.0-12.2) White Blood Count 6.6 K/UL (4.8-10.8) Red Blood Count 3.01 M/UL (4.20-5.40) Hemoglobin 9.8 G/DL (12.0-16.0) Hematocrit 30.0 % (37.0-47.0) Mean Corpuscular Volume 100 FL (80-99) Mean Corpuscular Hemoglobin 32.5 PG (27.0-31.0) Mean Corpuscular Hemoglobin Concent 32.5 G/DL (32.0-36.0) Red Cell Distribution Width 16.5 % (11.6-14.8) Platelet Count 105 K/UL (150-450) Mean Platelet Volume 6.4 FL (6.5-10.1) Neutrophils (%) (Auto) 76.7 % (45.0-75.0) Lymphocytes (%) (Auto) 11.6 % (20.0-45.0) Monocytes (%) (Auto) 7.4 % (1.0-10.0) Eosinophils (%) (Auto) 3.7 % (0.0-3.0) Basophils (%) (Auto) 0.6 % (0.0-2.0) Sodium Level 137 MMOL/L (136-145) Potassium Level 3.6 MMOL/L (3.5-5.1) Chloride Level 99 MMOL/L (98-107) Carbon Dioxide Level 39 MMOL/L (21-32) Anion Gap -1 mmol/L (5-15) Blood Urea Nitrogen 7 mg/dL (7-18) Creatinine 0.7 MG/DL (0.55-1.30) Estimat Glomerular Filtration Rate > 60 mL/min (>60) Glucose Level 94 MG/DL (74-106) Calcium Level 7.2 MG/DL (8.5-10.1) Globulin 6.3 g/dL Albumin/Globulin Ratio 0.3 (1.0-2.7) Test 03/15/20 15:56 03/15/20 18:39 03/16/20 04:54 03/16/20 07:22 Arterial Blood pH 7.416 (7.350-7.450) 7.450 (7.350-7.450) 7.401 (7.350-7.450) Arterial Blood Partial Pressure CO2 57.4 mmHg (35.0-45.0) 51.6 mmHg (35.0-45.0) 54.4 mmHg (35.0-45.0) Arterial Blood Partial Pressure O2 50.3 mmHg (75.0-100.0) 110.9 mmHg (75.0-100.0) 72.6 mmHg (75.0-100.0) Arterial Blood HCO3 36.1 mmol/L (22.0-26.0) 35.5 mmol/L (22.0-26.0) 33.0 mmol/L (22.0-26.0) Arterial Blood Oxygen Saturation 83.3 % (95-100) 98.1 % (95-100) 94.0 % (95-100) Arterial Blood Base Excess 10.0 (-2-2) 10.2 (-2-2) 7.0 (-2-2) Joaquin Test N/a Positive Positive White Blood Count 13.1 K/UL (4.8-10.8) Red Blood Count 3.24 M/UL (4.20-5.40) Hemoglobin 10.8 G/DL (12.0-16.0) Hematocrit 32.3 % (37.0-47.0) Mean Corpuscular Volume 100 FL (80-99) Mean Corpuscular Hemoglobin 33.5 PG (27.0-31.0) Mean Corpuscular Hemoglobin Concent 33.6 G/DL (32.0-36.0) Red Cell Distribution Width 16.9 % (11.6-14.8) Platelet Count 118 K/UL (150-450) Mean Platelet Volume 6.6 FL (6.5-10.1) Neutrophils (%) (Auto) 75.1 % (45.0-75.0) Lymphocytes (%) (Auto) 13.6 % (20.0-45.0) Monocytes (%) (Auto) 5.2 % (1.0-10.0) Eosinophils (%) (Auto) 5.4 % (0.0-3.0) Basophils (%) (Auto) 0.7 % (0.0-2.0) Sodium Level 132 MMOL/L (136-145) Potassium Level 3.5 MMOL/L (3.5-5.1) Chloride Level 95 MMOL/L (98-107) Carbon Dioxide Level 34 MMOL/L (21-32) Anion Gap 3 mmol/L (5-15) Blood Urea Nitrogen 8 mg/dL (7-18) Creatinine 0.9 MG/DL (0.55-1.30) Estimat Glomerular Filtration Rate > 60 mL/min (>60) Glucose Level 140 MG/DL (74-106) Calcium Level 7.9 MG/DL (8.5-10.1) Magnesium Level 1.9 MG/DL (1.8-2.4) Total Bilirubin 1.7 MG/DL (0.2-1.0) Direct Bilirubin 0.8 MG/DL (0.0-0.3) Aspartate Amino Transf (AST/SGOT) 73 U/L (15-37) Alanine Aminotransferase (ALT/SGPT) 10 U/L (12-78) Alkaline Phosphatase 105 U/L (46-116) Total Protein 8.3 G/DL (6.4-8.2) Albumin 1.8 G/DL (3.4-5.0) Globulin 6.5 g/dL Albumin/Globulin Ratio 0.3 (1.0-2.7) Triglycerides Level 116 MG/DL (30-150) Test 03/16/20 15:43 Arterial Blood pH 7.400 (7.350-7.450) Arterial Blood Partial Pressure CO2 46.8 mmHg (35.0-45.0) Arterial Blood Partial Pressure O2 69.6 mmHg (75.0-100.0) Arterial Blood HCO3 28.3 mmol/L (22.0-26.0) Arterial Blood Oxygen Saturation 93.0 % (95-100) Arterial Blood Base Excess 3 (-2-2) Joaquin Test Positive Micro Microbiology Date/Time Source Procedure Growth Status 03/16/20 20:50 Sputum Gram Stain - Final Resulted 03/16/20 20:50 Sputum Sputum Culture Pending Resulted Height (Feet): 5 Height (Inches): 1.00 Weight (Pounds): 237 Objective Physical Exam: Vitals: reviewed General: NAD HEENT: nc, at Neck: supple Chest: crackles b/l, mech breath sounds ++intubated Cardiovascular: RRR, no s3, s4 EXT ++ Significant edema and erythema bilateral lower extremity, patient also has blistering on both feet given the edema, whittish overcrust/crusting++ Neurologic: sedated Skin: other - As above Brett Mcclain MD March 17, 2020 07:13
[2020-03-17] MEDS: DOPamine 400mg/250ml 250 ML IV SCH ×2 (08:47→17:54)
[2020-03-17] MEDS: Azithromycin 250mg tab ORAL SCH (08:48)
[2020-03-17 09:18] LABS: BASOPHILS % (AUTO) 0.8 % (0.0-2.0); EOSINOPHILS % (AUTO) 4.7 % (0.0-3.0); HEMATOCRIT 32.1 % (37.0-47.0); HEMOGLOBIN 10.6 G/DL (12.0-16.0); LYMPHOCYTES % (AUTO) 11.7 % (20.0-45.0); MEAN CORPUSCULAR VOLUME 100 FL (80-99); MONOCYTES % (AUTO) 6.4 % (1.0-10.0); NEUTROPHILS % (AUTO) 76.4 % (45.0-75.0); PLATELET COUNT 103 K/UL (150-450); RED BLOOD COUNT 3.23 M/UL (4.20-5.40); RED CELL DISTRIBUTION WIDTH 16.8 % (11.6-14.8)
[2020-03-17 09:47] LABS: ALANINE AMINOTRANSFERASE 19 U/L (12-78); ALBUMIN 1.6 G/DL (3.4-5.0); ALBUMIN/GLOBULIN RATIO 0.2 (1.0-2.7); ALKALINE PHOSPHATASE 116 U/L (46-116); ANION GAP 3 mmol/L (5-15); ASPARTATE AMINO TRANSFERASE 73 U/L (15-37); BILIRUBIN,TOTAL 1.7 MG/DL (0.2-1.0); BLOOD UREA NITROGEN 9 mg/dL (7-18); CALCIUM 7.2 MG/DL (8.5-10.1); CARBON DIOXIDE 30 MMOL/L (21-32); CHLORIDE 93 MMOL/L (98-107); CREATININE 0.8 MG/DL (0.55-1.30); POTASSIUM 3.6 MMOL/L (3.5-5.1); SODIUM 126 MMOL/L (136-145)
--- NOTE | 2020-03-17 09:48 | Infectious Diseases Prog Note ---
Assessment/Plan Assessment/Plan IMPRESSION: 1. Bilateral leg cellulitis,Pseudomonas in culture 2. Anemia. 3. Hypoxemic respiratory failure 4. Thrombocytopenia. 5. Homeless 6. Morbid obesity. 7. Cirrhosis 8. COVID19 pneumonia Positive03/07-03/12 9. Hepatitis C Worsening LFT RECOMMENDATION: Will f/u COVID19 test Finished Plaquenil course Continue Meropenem & Zithromax Will f/u Sputum culture Will give a dose of Ivermectin Negative VQ scan Case was D/W pharmacy Subjective ROS Limited/Unobtainable: Yes Cardiovascular: Reports: other - on three vasopressor now Allergies: Coded Allergies: No Known Allergies (Unverified , 02/29/20) Objective Vital Signs Last 24 Hour Vital Signs Date Time Temp Pulse Resp B/P (MAP) Pulse Ox O2 Delivery O2 Flow Rate FiO2 03/17/20 09:07 83 30 100 03/17/20 08:47 62/39 03/17/20 08:42 63/39 03/17/20 07:15 67 17 134/60 (84) 97 03/17/20 07:10 74 29 100 03/17/20 07:00 70 19 132/66 (88) 92 03/17/20 07:00 134/60 03/17/20 07:00 134/60 03/17/20 07:00 16 134/60 Mechanical Ventilator 100 03/17/20 07:00 19 Mechanical Ventilator 100 03/17/20 06:45 69 20 125/67 (86) 90 03/17/20 06:30 70 22 123/56 (78) 91 03/17/20 06:15 99.8 71 19 127/73 (91) 89 03/17/20 06:00 72 19 119/60 (79) 92 03/17/20 06:00 119/60 03/17/20 06:00 119/60 03/17/20 06:00 19 119/60 Mechanical Ventilator 100 03/17/20 06:00 19 Mechanical Ventilator 100 03/17/20 05:45 75 20 123/68 (86) 92 03/17/20 05:30 71 20 128/72 (90) 90 03/17/20 05:15 75 23 122/63 (82) 89 03/17/20 05:00 127/65 03/17/20 05:00 127/65 03/17/20 05:00 19 127/65 Mechanical Ventilator 100 03/17/20 05:00 19 Mechanical Ventilator 100 03/17/20 05:00 71 23 127/65 (85) 88 03/17/20 04:45 70 24 138/75 (96) 94 03/17/20 04:41 71 27 100 03/17/20 04:30 70 18 137/73 (94) 91 03/17/20 04:15 69 22 139/76 (97) 92 03/17/20 04:00 Mechanical Ventilator 03/17/20 04:00 139/76 03/17/20 04:00 139/76 03/17/20 04:00 19 139/76 Mechanical Ventilator 100 03/17/20 04:00 20 Mechanical Ventilator 100 03/17/20 04:00 100 03/17/20 04:00 100.1 70 24 132/64 (86) 92 03/17/20 03:45 69 18 123/70 (87) 88 03/17/20 03:35 100.0 03/17/20 03:30 82 23 100/57 (71) 89 03/17/20 03:30 137/68 03/17/20 03:15 70 22 137/68 (91) 90 03/17/20 03:01 70 03/17/20 03:00 70 23 136/70 (92) 91 03/17/20 03:00 137/68 03/17/20 03:00 137/68 03/17/20 03:00 26 136/70 Mechanical Ventilator 100 03/17/20 03:00 21 Mechanical Ventilator 100 03/17/20 02:45 66 19 137/68 (91) 91 03/17/20 02:32 26 114/65 Mechanical Ventilator 100 03/17/20 02:30 66 22 124/64 (84) 90 03/17/20 02:30 124/64 03/17/20 02:30 124/64 03/17/20 02:25 74 26 100 03/17/20 02:15 80 24 114/65 (81) 82 03/17/20 02:00 124/63 03/17/20 02:00 124/63 03/17/20 02:00 21 124/63 Mechanical Ventilator 100 03/17/20 02:00 21 Mechanical Ventilator 100 03/17/20 02:00 67 20 124/63 (83) 73 03/17/20 01:45 66 20 132/77 (95) 80 03/17/20 01:30 66 17 137/66 (89) 83 03/17/20 01:15 67 18 135/67 (89) 84 03/17/20 01:00 131/73 03/17/20 01:00 131/73 03/17/20 01:00 20 131/73 Mechanical Ventilator 100 03/17/20 01:00 20 Mechanical Ventilator 100 03/17/20 01:00 68 17 131/73 (92) 78 03/17/20 00:45 67 13 131/70 (90) 85 03/17/20 00:30 65 22 130/66 (87) 84 03/17/20 00:15 76 19 121/57 (78) 85 03/17/20 00:09 75 03/17/20 00:00 100.1 73 12 124/68 (86) 93 03/17/20 00:00 124/68 03/17/20 00:00 124/68 03/17/20 00:00 20 124/68 Mechanical Ventilator 100 03/17/20 00:00 21 Mechanical Ventilator 100 03/17/20 00:00 Mechanical Ventilator 03/17/20 00:00 100 03/16/20 23:45 65 18 125/55 (78) 96 03/16/20 23:30 66 19 122/58 (79) 95 03/16/20 23:15 68 14 116/60 (78) 93 03/16/20 23:00 67 19 120/55 (76) 63 03/16/20 23:00 120/55 03/16/20 23:00 120/55 03/16/20 23:00 20 120/55 Mechanical Ventilator 100 03/16/20 23:00 20 Mechanical Ventilator 100 03/16/20 22:54 91/54 03/16/20 22:45 68 14 91/45 (60) 79 03/16/20 22:45 19 125/55 Mechanical Ventilator 100 03/16/20 22:31 77 26 100 03/16/20 22:30 15 111/62 Mechanical Ventilator 100 03/16/20 22:30 85 13 86/40 (55) 73 03/16/20 22:15 66 21 137/65 (89) 82 03/16/20 22:00 20 Mechanical Ventilator 100 03/16/20 22:00 67 20 138/69 (92) 87 03/16/20 21:30 72 19 138/57 (84) 82 03/16/20 21:15 74 23 137/71 (93) 82 03/16/20 21:00 75 18 133/66 (88) 81 03/16/20 21:00 133/66 03/16/20 21:00 20 133/66 Mechanical Ventilator 100 03/16/20 21:00 20 Mechanical Ventilator 100 03/16/20 20:45 76 22 128/72 (90) 82 03/16/20 20:30 61 26 119/63 (81) 93 03/16/20 20:15 63 26 90/58 (69) 85 03/16/20 20:00 Mechanical Ventilator 03/16/20 20:00 100 03/16/20 20:00 98/55 03/16/20 20:00 22 98/55 Mechanical Ventilator 100 03/16/20 20:00 22 Mechanical Ventilator 100 03/16/20 20:00 98.9 56 9 98/55 (69) 72 03/16/20 19:56 102/57 03/16/20 19:45 56 5 102/57 (72) 78 03/16/20 19:40 55 03/16/20 19:30 60 0 94/52 (66) 68 03/16/20 19:15 55 26 99/57 (71) 89 03/16/20 19:06 64 26 100 03/16/20 19:00 55 26 121/51 (74) 96 03/16/20 19:00 121/51 03/16/20 19:00 26 121/51 Mechanical Ventilator 100 03/16/20 19:00 26 Mechanical Ventilator 100 03/16/20 18:45 55 26 118/78 (91) 95 03/16/20 18:30 55 26 113/45 (67) 95 03/16/20 18:21 112/56 03/16/20 18:15 26 Mechanical Ventilator 100 03/16/20 18:15 54 26 112/56 (74) 95 03/16/20 18:00 54 26 108/56 (73) 95 03/16/20 18:00 108/56 03/16/20 18:00 26 108/56 Mechanical Ventilator 100 03/16/20 18:00 26 Mechanical Ventilator 100 03/16/20 17:45 54 26 105/59 (74) 93 03/16/20 17:30 54 26 86/72 (77) 93 03/16/20 17:22 58 26 100 03/16/20 17:15 55 26 104/72 (83) 91 03/16/20 17:12 26 104/74 Mechanical Ventilator 100 03/16/20 17:00 55 26 104/74 (84) 88 03/16/20 17:00 104/74 03/16/20 17:00 26 104/74 Mechanical Ventilator 100 03/16/20 17:00 26 Mechanical Ventilator 100 03/16/20 16:00 Mechanical Ventilator 03/16/20 16:00 100 03/16/20 16:00 108/49 03/16/20 16:00 26 108/49 Mechanical Ventilator 100 03/16/20 16:00 26 Mechanical Ventilator 100 03/16/20 16:00 53 03/16/20 16:00 98.4 52 26 108/49 (68) 94 03/16/20 15:30 117/96 03/16/20 15:30 26 Mechanical Ventilator 100 03/16/20 15:30 72 16 117/96 (103) 96 03/16/20 15:15 54 21 134/65 (88) 97 03/16/20 15:00 134/64 03/16/20 15:00 26 134/64 Mechanical Ventilator 100 03/16/20 15:00 26 Mechanical Ventilator 100 03/16/20 15:00 53 19 134/64 (87) 95 03/16/20 14:52 53 26 100 03/16/20 14:45 53 19 133/67 (89) 99 03/16/20 14:30 53 23 129/65 (86) 98 03/16/20 14:30 26 Mechanical Ventilator 100 03/16/20 14:19 122/60 03/16/20 14:15 52 25 122/60 (80) 95 03/16/20 14:13 100 03/16/20 14:00 117/62 03/16/20 14:00 26 117/62 Mechanical Ventilator 100 03/16/20 14:00 26 Mechanical Ventilator 100 03/16/20 14:00 52 15 117/62 (80) 98 03/16/20 13:45 53 19 102/57 (72) 97 03/16/20 13:30 98.3 55 12 89/51 (64) 87 03/16/20 13:30 22 89/51 Mechanical Ventilator 100 03/16/20 13:15 56 22 82/47 (59) 79 03/16/20 13:00 88/50 03/16/20 13:00 22 88/50 Mechanical Ventilator 100 03/16/20 13:00 22 Mechanical Ventilator 100 03/16/20 13:00 56 22 88/50 (63) 80 03/16/20 12:30 57 22 87/54 (65) 74 03/16/20 12:15 58 22 91/51 (64) 73 03/16/20 12:10 22 91/49 Mechanical Ventilator 100 03/16/20 12:00 53 03/16/20 12:00 91/51 03/16/20 12:00 22 91/51 Mechanical Ventilator 100.0 03/16/20 12:00 22 Mechanical Ventilator 100 03/16/20 12:00 Mechanical Ventilator 03/16/20 12:00 100 03/16/20 12:00 99.8 56 22 91/49 (63) 80 03/16/20 11:45 58 22 91/47 (62) 67 03/16/20 11:30 55 22 96/50 (65) 77 03/16/20 11:09 55 22 100 03/16/20 11:00 54 22 106/59 (75) 92 03/16/20 11:00 109/64 03/16/20 11:00 22 109/64 Mechanical Ventilator 100 03/16/20 11:00 22 Mechanical Ventilator 100 03/16/20 10:30 62 22 89/42 (58) 92 03/16/20 10:15 60 22 89/44 (59) 97 03/16/20 10:07 60 22 81/38 (52) 93 03/16/20 10:00 62 22 68/27 (41) 93 03/16/20 10:00 85/34 03/16/20 10:00 22 81/38 Mechanical Ventilator 100 03/16/20 10:00 22 Mechanical Ventilator 100 Height (Feet): 5 Height (Inches): 1.00 Weight (Pounds): 237 HEENT: mucous membranes moist, other - orally intubated Respiratory/Chest: other - on ventilator, tachypneic Cardiovascular: normal rate, other - left arm PICC line Extremities: other - edema Neurologic/Psychiatric: other - sedatd Microbiology Date/Time Source Procedure Growth Status 03/16/20 20:50 Sputum Gram Stain - Final Resulted 03/16/20 20:50 Sputum Sputum Culture Pending Resulted Laboratory Tests Test 03/16/20 15:43 03/17/20 09:00 Arterial Blood pH 7.400 (7.350-7.450) Arterial Blood Partial Pressure CO2 46.8 mmHg (35.0-45.0) H Arterial Blood Partial Pressure O2 69.6 mmHg (75.0-100.0) L Arterial Blood HCO3 28.3 mmol/L (22.0-26.0) H Arterial Blood Oxygen Saturation 93.0 % (95-100) L Arterial Blood Base Excess 3 (-2-2) H Joaquin Test Positive White Blood Count 13.0 K/UL (4.8-10.8) H Red Blood Count 3.23 M/UL (4.20-5.40) L Hemoglobin 10.6 G/DL (12.0-16.0) L Hematocrit 32.1 % (37.0-47.0) L Mean Corpuscular Volume 100 FL (80-99) H Mean Corpuscular Hemoglobin 33.0 PG (27.0-31.0) H Mean Corpuscular Hemoglobin Concent 33.1 G/DL (32.0-36.0) Red Cell Distribution Width 16.8 % (11.6-14.8) H Platelet Count 103 K/UL (150-450) L Mean Platelet Volume 6.8 FL (6.5-10.1) Neutrophils (%) (Auto) 76.4 % (45.0-75.0) H Lymphocytes (%) (Auto) 11.7 % (20.0-45.0) L Monocytes (%) (Auto) 6.4 % (1.0-10.0) Eosinophils (%) (Auto) 4.7 % (0.0-3.0) H Basophils (%) (Auto) 0.8 % (0.0-2.0) Sodium Level Pending Potassium Level Pending Chloride Level Pending Carbon Dioxide Level Pending Blood Urea Nitrogen Pending Creatinine Pending Estimat Glomerular Filtration Rate Pending Glucose Level Pending Calcium Level Pending Magnesium Level Pending Total Bilirubin Pending Aspartate Amino Transf (AST/SGOT) Pending Alanine Aminotransferase (ALT/SGPT) Pending Alkaline Phosphatase Pending Total Protein Pending Albumin Pending Globulin Pending Thyroid Stimulating Hormone (TSH) Pending Cortisol Pending Current Medications Medications (Trade) Dose Ordered Sig/Dolores Route PRN Reason Start Time Stop Time Status Last Admin Dose Admin Acetaminophen (Tylenol) 650 mg Q4H PRN ORAL Mild Pain (Pain Scale 1-3) 03/13/20 14:53 04/12/20 14:52 03/17/20 02:33 Acetaminophen (Tylenol) 650 mg Q4H PRN ORAL Temp >100 03/13/20 14:53 04/12/20 14:52 Azithromycin (Zithromax) 500 mg DAILY ORAL 03/14/20 09:00 03/20/20 10:59 03/17/20 08:48 Chlorhexidine Gluconate (Lucretia-Hex 2%) 1 applic DAILY@2000 TOPIC 03/13/20 20:00 06/11/20 19:59 03/16/20 19:56 Dextrose (Dextrose 50%) 25 ml Q30M PRN IV Hypoglycemia 03/16/20 09:30 06/14/20 09:29 Dextrose (Dextrose 50%) 50 ml Q30M PRN IV Hypoglycemia 03/16/20 09:30 06/14/20 09:29 Dextrose/Sodium Chloride 1,000 ml @ 60 mls/hr [id number] IV 03/16/20 10:00 04/15/20 09:59 03/17/20 02:25 Diphenhydramine HCl (Benadryl) 25 mg Q4H PRN ORAL moderate itching 03/13/20 14:54 04/12/20 14:53 Diphenhydramine HCl (Benadryl) 50 mg Q4H PRN ORAL SEVERE ITCHING 03/13/20 14:53 04/12/20 14:52 Dopamine HCl/ Dextrose 250 ml @ 0 mls/hr Q24H IV 03/16/20 19:30 06/14/20 19:29 03/17/20 08:47 Enoxaparin Sodium (Lovenox) 40 mg DAILY SUBQ 03/14/20 09:00 06/10/20 08:59 03/16/20 08:38 Fentanyl Citrate 2500 mcg/Sodium Chloride 250 ml @ 0 mls/hr Q24H IV 03/15/20 18:30 03/22/20 18:29 03/16/20 18:15 Furosemide (Lasix) 20 mg BID IV 03/15/20 09:00 04/14/20 08:59 03/17/20 09:12 Insulin Aspart (NovoLOG) Q6HR SUBQ 03/16/20 12:00 06/14/20 11:59 03/17/20 05:26 Magnesium Sulfate 100 ml @ 100 mls/hr ONCE ONCE IVPB 03/17/20 12:00 03/17/20 12:59 Meropenem 1 gm/ Sodium Chloride 55 ml @ 110 mls/hr Q8HR IVPB 03/16/20 14:00 03/21/20 13:59 03/17/20 05:26 Mirtazapine (Remeron) 7.5 mg BEDTIME PRN ORAL SLEEP 03/13/20 14:55 06/11/20 14:54 Norepinephrine Bitartrate 8 mg/ Dextrose 508 ml @ 0 mls/hr Q24H IV 03/15/20 21:00 04/14/20 20:59 03/17/20 08:42 Potassium Chloride (K-Dur) 20 meq BID ORAL 03/14/20 09:00 06/11/20 08:59 03/17/20 08:47 Propofol 100 ml @ 0 mls/hr Q24H IV 03/15/20 18:00 03/17/20 17:59 03/17/20 02:32 Vasopressin 100 units/Sodium Chloride 100 ml @ 0 mls/hr Q24H PRN IV For hypotension 03/16/20 11:00 04/15/20 10:59 03/16/20 10:31 Jonathon Shah MD March 17, 2020 09:48
[2020-03-17 09:52] LABS: BILIRUBIN,DIRECT 0.9 MG/DL (0.0-0.3)
--- NOTE | 2020-03-17 10:25 | General Progress Note ---
Assessment/Plan Status: progressing, unchanged Assessment/Plan: macrocytic anemia elevated LFTS cirrhosis cellulitis elevated Ammonia levels respiratory distress>>> now failure COVID positive pna NGTF on hold given elevated residuals add reglan abd us>> reviewed lactulose and Xifaxan fu stool ob>>>neg s/p one unit PRBC in this admission GI procedures if needed abx per id hepatitis panel>>>>>positive for hep C>>> needs out patient fu poor prognosis will fu Subjective ROS Limited/Unobtainable: No Allergies: Coded Allergies: No Known Allergies (Unverified , 02/29/20) Objective Last 24 Hour Vital Signs Date Time Temp Pulse Resp B/P (MAP) Pulse Ox O2 Delivery O2 Flow Rate FiO2 03/17/20 09:07 83 30 100 03/17/20 08:47 62/39 03/17/20 08:42 63/39 03/17/20 07:15 67 17 134/60 (84) 97 03/17/20 07:10 74 29 100 03/17/20 07:00 70 19 132/66 (88) 92 03/17/20 07:00 134/60 03/17/20 07:00 134/60 03/17/20 07:00 16 134/60 Mechanical Ventilator 100 03/17/20 07:00 19 Mechanical Ventilator 100 03/17/20 06:45 69 20 125/67 (86) 90 03/17/20 06:30 70 22 123/56 (78) 91 03/17/20 06:15 99.8 71 19 127/73 (91) 89 03/17/20 06:00 72 19 119/60 (79) 92 03/17/20 06:00 119/60 03/17/20 06:00 119/60 03/17/20 06:00 19 119/60 Mechanical Ventilator 100 03/17/20 06:00 19 Mechanical Ventilator 100 03/17/20 05:45 75 20 123/68 (86) 92 03/17/20 05:30 71 20 128/72 (90) 90 03/17/20 05:15 75 23 122/63 (82) 89 03/17/20 05:00 127/65 03/17/20 05:00 127/65 03/17/20 05:00 19 127/65 Mechanical Ventilator 100 03/17/20 05:00 19 Mechanical Ventilator 100 03/17/20 05:00 71 23 127/65 (85) 88 03/17/20 04:45 70 24 138/75 (96) 94 03/17/20 04:41 71 27 100 03/17/20 04:30 70 18 137/73 (94) 91 03/17/20 04:15 69 22 139/76 (97) 92 03/17/20 04:00 Mechanical Ventilator 03/17/20 04:00 139/76 03/17/20 04:00 139/76 03/17/20 04:00 19 139/76 Mechanical Ventilator 100 03/17/20 04:00 20 Mechanical Ventilator 100 03/17/20 04:00 100 03/17/20 04:00 100.1 70 24 132/64 (86) 92 03/17/20 03:45 69 18 123/70 (87) 88 03/17/20 03:35 100.0 03/17/20 03:30 82 23 100/57 (71) 89 03/17/20 03:30 137/68 03/17/20 03:15 70 22 137/68 (91) 90 03/17/20 03:01 70 03/17/20 03:00 70 23 136/70 (92) 91 03/17/20 03:00 137/68 03/17/20 03:00 137/68 03/17/20 03:00 26 136/70 Mechanical Ventilator 100 03/17/20 03:00 21 Mechanical Ventilator 100 03/17/20 02:45 66 19 137/68 (91) 91 03/17/20 02:32 26 114/65 Mechanical Ventilator 100 03/17/20 02:30 66 22 124/64 (84) 90 03/17/20 02:30 124/64 03/17/20 02:30 124/64 03/17/20 02:25 74 26 100 03/17/20 02:15 80 24 114/65 (81) 82 03/17/20 02:00 124/63 03/17/20 02:00 124/63 03/17/20 02:00 21 124/63 Mechanical Ventilator 100 03/17/20 02:00 21 Mechanical Ventilator 100 03/17/20 02:00 67 20 124/63 (83) 73 03/17/20 01:45 66 20 132/77 (95) 80 03/17/20 01:30 66 17 137/66 (89) 83 03/17/20 01:15 67 18 135/67 (89) 84 03/17/20 01:00 131/73 03/17/20 01:00 131/73 03/17/20 01:00 20 131/73 Mechanical Ventilator 100 03/17/20 01:00 20 Mechanical Ventilator 100 03/17/20 01:00 68 17 131/73 (92) 78 03/17/20 00:45 67 13 131/70 (90) 85 03/17/20 00:30 65 22 130/66 (87) 84 03/17/20 00:15 76 19 121/57 (78) 85 03/17/20 00:09 75 03/17/20 00:00 100.1 73 12 124/68 (86) 93 03/17/20 00:00 124/68 03/17/20 00:00 124/68 03/17/20 00:00 20 124/68 Mechanical Ventilator 100 03/17/20 00:00 21 Mechanical Ventilator 100 03/17/20 00:00 Mechanical Ventilator 03/17/20 00:00 100 03/16/20 23:45 65 18 125/55 (78) 96 03/16/20 23:30 66 19 122/58 (79) 95 03/16/20 23:15 68 14 116/60 (78) 93 03/16/20 23:00 67 19 120/55 (76) 63 03/16/20 23:00 120/55 03/16/20 23:00 120/55 03/16/20 23:00 20 120/55 Mechanical Ventilator 100 03/16/20 23:00 20 Mechanical Ventilator 100 03/16/20 22:54 91/54 03/16/20 22:45 68 14 91/45 (60) 79 03/16/20 22:45 19 125/55 Mechanical Ventilator 100 03/16/20 22:31 77 26 100 03/16/20 22:30 15 111/62 Mechanical Ventilator 100 03/16/20 22:30 85 13 86/40 (55) 73 03/16/20 22:15 66 21 137/65 (89) 82 03/16/20 22:00 20 Mechanical Ventilator 100 03/16/20 22:00 67 20 138/69 (92) 87 03/16/20 21:30 72 19 138/57 (84) 82 03/16/20 21:15 74 23 137/71 (93) 82 03/16/20 21:00 75 18 133/66 (88) 81 03/16/20 21:00 133/66 03/16/20 21:00 20 133/66 Mechanical Ventilator 100 03/16/20 21:00 20 Mechanical Ventilator 100 03/16/20 20:45 76 22 128/72 (90) 82 03/16/20 20:30 61 26 119/63 (81) 93 03/16/20 20:15 63 26 90/58 (69) 85 03/16/20 20:00 Mechanical Ventilator 03/16/20 20:00 100 03/16/20 20:00 98/55 03/16/20 20:00 22 98/55 Mechanical Ventilator 100 03/16/20 20:00 22 Mechanical Ventilator 100 03/16/20 20:00 98.9 56 9 98/55 (69) 72 03/16/20 19:56 102/57 03/16/20 19:45 56 5 102/57 (72) 78 03/16/20 19:40 55 03/16/20 19:30 60 0 94/52 (66) 68 03/16/20 19:15 55 26 99/57 (71) 89 03/16/20 19:06 64 26 100 03/16/20 19:00 55 26 121/51 (74) 96 03/16/20 19:00 121/51 03/16/20 19:00 26 121/51 Mechanical Ventilator 100 03/16/20 19:00 26 Mechanical Ventilator 100 03/16/20 18:45 55 26 118/78 (91) 95 03/16/20 18:30 55 26 113/45 (67) 95 03/16/20 18:21 112/56 03/16/20 18:15 26 Mechanical Ventilator 100 03/16/20 18:15 54 26 112/56 (74) 95 03/16/20 18:00 54 26 108/56 (73) 95 03/16/20 18:00 108/56 03/16/20 18:00 26 108/56 Mechanical Ventilator 100 03/16/20 18:00 26 Mechanical Ventilator 100 03/16/20 17:45 54 26 105/59 (74) 93 03/16/20 17:30 54 26 86/72 (77) 93 03/16/20 17:22 58 26 100 03/16/20 17:15 55 26 104/72 (83) 91 03/16/20 17:12 26 104/74 Mechanical Ventilator 100 03/16/20 17:00 55 26 104/74 (84) 88 03/16/20 17:00 104/74 03/16/20 17:00 26 104/74 Mechanical Ventilator 100 03/16/20 17:00 26 Mechanical Ventilator 100 03/16/20 16:00 Mechanical Ventilator 03/16/20 16:00 100 03/16/20 16:00 108/49 03/16/20 16:00 26 108/49 Mechanical Ventilator 100 03/16/20 16:00 26 Mechanical Ventilator 100 03/16/20 16:00 53 03/16/20 16:00 98.4 52 26 108/49 (68) 94 03/16/20 15:30 117/96 03/16/20 15:30 26 Mechanical Ventilator 100 03/16/20 15:30 72 16 117/96 (103) 96 03/16/20 15:15 54 21 134/65 (88) 97 03/16/20 15:00 134/64 03/16/20 15:00 26 134/64 Mechanical Ventilator 100 03/16/20 15:00 26 Mechanical Ventilator 100 03/16/20 15:00 53 19 134/64 (87) 95 03/16/20 14:52 53 26 100 03/16/20 14:45 53 19 133/67 (89) 99 03/16/20 14:30 53 23 129/65 (86) 98 03/16/20 14:30 26 Mechanical Ventilator 100 03/16/20 14:19 122/60 03/16/20 14:15 52 25 122/60 (80) 95 03/16/20 14:13 100 03/16/20 14:00 117/62 03/16/20 14:00 26 117/62 Mechanical Ventilator 100 03/16/20 14:00 26 Mechanical Ventilator 100 03/16/20 14:00 52 15 117/62 (80) 98 03/16/20 13:45 53 19 102/57 (72) 97 03/16/20 13:30 98.3 55 12 89/51 (64) 87 03/16/20 13:30 22 89/51 Mechanical Ventilator 100 03/16/20 13:15 56 22 82/47 (59) 79 03/16/20 13:00 88/50 03/16/20 13:00 22 88/50 Mechanical Ventilator 100 03/16/20 13:00 22 Mechanical Ventilator 100 03/16/20 13:00 56 22 88/50 (63) 80 03/16/20 12:30 57 22 87/54 (65) 74 03/16/20 12:15 58 22 91/51 (64) 73 03/16/20 12:10 22 91/49 Mechanical Ventilator 100 03/16/20 12:00 53 03/16/20 12:00 91/51 03/16/20 12:00 22 91/51 Mechanical Ventilator 100.0 03/16/20 12:00 22 Mechanical Ventilator 100 03/16/20 12:00 Mechanical Ventilator 03/16/20 12:00 100 03/16/20 12:00 99.8 56 22 91/49 (63) 80 03/16/20 11:45 58 22 91/47 (62) 67 03/16/20 11:30 55 22 96/50 (65) 77 03/16/20 11:09 55 22 100 03/16/20 11:00 54 22 106/59 (75) 92 03/16/20 11:00 109/64 03/16/20 11:00 22 109/64 Mechanical Ventilator 100 03/16/20 11:00 22 Mechanical Ventilator 100 03/16/20 10:30 62 22 89/42 (58) 92 03/16/20 10:15 60 22 89/44 (59) 97 Intake and Output 03/16/20 03/17/20 19:00 07:00 Intake Total 2766.731 ml 2722.9863 ml Output Total 360 ml 675 ml Balance 2406.731 ml 2047.9863 ml IV Total 2606.731 ml 2462.9863 ml Tube Feeding 40 ml 260 ml Other 120 ml Output Urine Total 360 ml 675 ml Laboratory Tests 03/16/20 15:43: Arterial Blood pH 7.400, Arterial Blood Partial Pressure CO2 46.8H, Arterial Blood Partial Pressure O2 69.6L, Arterial Blood HCO3 28.3H, Arterial Blood Oxygen Saturation 93.0L, Arterial Blood Base Excess 3H, Joaquin Test Positive 03/17/20 09:00: White Blood Count 13.0H, Red Blood Count 3.23L, Hemoglobin 10.6L, Hematocrit 32.1L, Mean Corpuscular Volume 100H, Mean Corpuscular Hemoglobin 33.0H, Mean Corpuscular Hemoglobin Concent 33.1, Red Cell Distribution Width 16.8H, Platelet Count 103L, Mean Platelet Volume 6.8, Neutrophils (%) (Auto) 76.4H, Lymphocytes (%) (Auto) 11.7L, Monocytes (%) (Auto) 6.4, Eosinophils (%) (Auto) 4.7H, Basophils (%) (Auto) 0.8, Sodium Level 126L, Potassium Level 3.6, Chloride Level 93L, Carbon Dioxide Level 30, Anion Gap 3L, Blood Urea Nitrogen 9 , Creatinine 0.8, Estimat Glomerular Filtration Rate > 60, Glucose Level 150H, Calcium Level 7.2L, Magnesium Level 1.7L, Total Bilirubin 1.7H, Direct Bilirubin 0.9H, Aspartate Amino Transf (AST/SGOT) 73H, Alanine Aminotransferase (ALT/SGPT) 19, Alkaline Phosphatase 116, Total Protein 8.2, Albumin 1.6L, Globulin 6.6, Albumin/Globulin Ratio 0.2L, Thyroid Stimulating Hormone (TSH) [ Pending], Cortisol [Pending] Height (Feet): 5 Height (Inches): 1.00 Weight (Pounds): 237 General Appearance: lethargic EENT: normal ENT inspection Neck: supple Cardiovascular: normal rate Respiratory/Chest: decreased breath sounds Abdomen: normal bowel sounds, non tender, soft Extremities: non-tender Tam Spicer MD March 17, 2020 10:25
[2020-03-17] MEDS: Enoxaparin 40mg Inj SUBQ SCH (11:02)
[2020-03-17] MEDS: Metoclopramide 10mg/2ml Inj IVP SCH ×3 (11:04→21:44)
[2020-03-17] MEDS: Solu-MEDROL 125mg Inj IVP SCH ×2 (11:05→21:45)
--- NOTE | 2020-03-17 11:45 | Surgery Progress Note ---
Surgery Progress Note Subjective Additional Comments worse peep 14 fi02 100% on pressors Objective Last 24 Hour Vital Signs Date Time Temp Pulse Resp B/P (MAP) Pulse Ox O2 Delivery O2 Flow Rate FiO2 03/17/20 11:04 31 104/61 Mechanical Ventilator 100 03/17/20 09:45 80 19 109/62 (78) 94 03/17/20 09:30 73 18 121/65 (83) 98 03/17/20 09:15 80 17 128/74 (92) 97 03/17/20 09:07 83 30 100 03/17/20 09:00 87 15 137/56 (83) 89 03/17/20 08:47 62/39 03/17/20 08:45 66 16 125/72 (89) 87 03/17/20 08:42 63/39 03/17/20 08:30 69 17 82/49 (60) 88 03/17/20 08:15 68 16 118/56 (76) 88 03/17/20 08:00 100 03/17/20 08:00 Mechanical Ventilator 03/17/20 08:00 100.2 68 23 130/62 (84) 89 03/17/20 08:00 68 03/17/20 07:45 68 19 137/63 (87) 89 03/17/20 07:30 67 24 130/65 (86) 90 03/17/20 07:15 67 17 134/60 (84) 97 03/17/20 07:10 74 29 100 03/17/20 07:00 70 19 132/66 (88) 92 03/17/20 07:00 134/60 03/17/20 07:00 134/60 03/17/20 07:00 16 134/60 Mechanical Ventilator 100 03/17/20 07:00 19 Mechanical Ventilator 100 03/17/20 06:45 69 20 125/67 (86) 90 03/17/20 06:30 70 22 123/56 (78) 91 03/17/20 06:15 99.8 71 19 127/73 (91) 89 03/17/20 06:00 72 19 119/60 (79) 92 03/17/20 06:00 119/60 03/17/20 06:00 119/60 03/17/20 06:00 19 119/60 Mechanical Ventilator 100 03/17/20 06:00 19 Mechanical Ventilator 100 03/17/20 05:45 75 20 123/68 (86) 92 03/17/20 05:30 71 20 128/72 (90) 90 03/17/20 05:15 75 23 122/63 (82) 89 03/17/20 05:00 127/65 03/17/20 05:00 127/65 03/17/20 05:00 19 127/65 Mechanical Ventilator 100 03/17/20 05:00 19 Mechanical Ventilator 100 03/17/20 05:00 71 23 127/65 (85) 88 03/17/20 04:45 70 24 138/75 (96) 94 03/17/20 04:41 71 27 100 03/17/20 04:30 70 18 137/73 (94) 91 03/17/20 04:15 69 22 139/76 (97) 92 03/17/20 04:00 Mechanical Ventilator 03/17/20 04:00 139/76 03/17/20 04:00 139/76 03/17/20 04:00 19 139/76 Mechanical Ventilator 100 03/17/20 04:00 20 Mechanical Ventilator 100 03/17/20 04:00 100 03/17/20 04:00 100.1 70 24 132/64 (86) 92 03/17/20 03:45 69 18 123/70 (87) 88 03/17/20 03:35 100.0 03/17/20 03:30 82 23 100/57 (71) 89 03/17/20 03:30 137/68 03/17/20 03:15 70 22 137/68 (91) 90 03/17/20 03:01 70 03/17/20 03:00 70 23 136/70 (92) 91 03/17/20 03:00 137/68 03/17/20 03:00 137/68 03/17/20 03:00 26 136/70 Mechanical Ventilator 100 03/17/20 03:00 21 Mechanical Ventilator 100 03/17/20 02:45 66 19 137/68 (91) 91 03/17/20 02:32 26 114/65 Mechanical Ventilator 100 03/17/20 02:30 66 22 124/64 (84) 90 03/17/20 02:30 124/64 03/17/20 02:30 124/64 03/17/20 02:25 74 26 100 03/17/20 02:15 80 24 114/65 (81) 82 03/17/20 02:00 124/63 03/17/20 02:00 124/63 03/17/20 02:00 21 124/63 Mechanical Ventilator 100 03/17/20 02:00 21 Mechanical Ventilator 100 03/17/20 02:00 67 20 124/63 (83) 73 03/17/20 01:45 66 20 132/77 (95) 80 03/17/20 01:30 66 17 137/66 (89) 83 03/17/20 01:15 67 18 135/67 (89) 84 03/17/20 01:00 131/73 03/17/20 01:00 131/73 03/17/20 01:00 20 131/73 Mechanical Ventilator 100 03/17/20 01:00 20 Mechanical Ventilator 100 03/17/20 01:00 68 17 131/73 (92) 78 03/17/20 00:45 67 13 131/70 (90) 85 03/17/20 00:30 65 22 130/66 (87) 84 03/17/20 00:15 76 19 121/57 (78) 85 03/17/20 00:09 75 03/17/20 00:00 100.1 73 12 124/68 (86) 93 03/17/20 00:00 124/68 03/17/20 00:00 124/68 03/17/20 00:00 20 124/68 Mechanical Ventilator 100 03/17/20 00:00 21 Mechanical Ventilator 100 03/17/20 00:00 Mechanical Ventilator 03/17/20 00:00 100 03/16/20 23:45 65 18 125/55 (78) 96 03/16/20 23:30 66 19 122/58 (79) 95 03/16/20 23:15 68 14 116/60 (78) 93 03/16/20 23:00 67 19 120/55 (76) 63 03/16/20 23:00 120/55 03/16/20 23:00 120/55 03/16/20 23:00 20 120/55 Mechanical Ventilator 100 03/16/20 23:00 20 Mechanical Ventilator 100 03/16/20 22:54 91/54 03/16/20 22:45 68 14 91/45 (60) 79 03/16/20 22:45 19 125/55 Mechanical Ventilator 100 03/16/20 22:31 77 26 100 03/16/20 22:30 15 111/62 Mechanical Ventilator 100 03/16/20 22:30 85 13 86/40 (55) 73 03/16/20 22:15 66 21 137/65 (89) 82 03/16/20 22:00 20 Mechanical Ventilator 100 03/16/20 22:00 67 20 138/69 (92) 87 03/16/20 21:30 72 19 138/57 (84) 82 03/16/20 21:15 74 23 137/71 (93) 82 03/16/20 21:00 75 18 133/66 (88) 81 03/16/20 21:00 133/66 03/16/20 21:00 20 133/66 Mechanical Ventilator 100 03/16/20 21:00 20 Mechanical Ventilator 100 03/16/20 20:45 76 22 128/72 (90) 82 03/16/20 20:30 61 26 119/63 (81) 93 03/16/20 20:15 63 26 90/58 (69) 85 03/16/20 20:00 Mechanical Ventilator 03/16/20 20:00 100 03/16/20 20:00 98/55 03/16/20 20:00 22 98/55 Mechanical Ventilator 100 03/16/20 20:00 22 Mechanical Ventilator 100 03/16/20 20:00 98.9 56 9 98/55 (69) 72 03/16/20 19:56 102/57 03/16/20 19:45 56 5 102/57 (72) 78 03/16/20 19:40 55 03/16/20 19:30 60 0 94/52 (66) 68 03/16/20 19:15 55 26 99/57 (71) 89 03/16/20 19:06 64 26 100 03/16/20 19:00 55 26 121/51 (74) 96 03/16/20 19:00 121/51 03/16/20 19:00 26 121/51 Mechanical Ventilator 100 03/16/20 19:00 26 Mechanical Ventilator 100 03/16/20 18:45 55 26 118/78 (91) 95 03/16/20 18:30 55 26 113/45 (67) 95 03/16/20 18:21 112/56 03/16/20 18:15 26 Mechanical Ventilator 100 03/16/20 18:15 54 26 112/56 (74) 95 03/16/20 18:00 54 26 108/56 (73) 95 03/16/20 18:00 108/56 03/16/20 18:00 26 108/56 Mechanical Ventilator 100 03/16/20 18:00 26 Mechanical Ventilator 100 03/16/20 17:45 54 26 105/59 (74) 93 03/16/20 17:30 54 26 86/72 (77) 93 03/16/20 17:22 58 26 100 03/16/20 17:15 55 26 104/72 (83) 91 03/16/20 17:12 26 104/74 Mechanical Ventilator 100 03/16/20 17:00 55 26 104/74 (84) 88 03/16/20 17:00 104/74 03/16/20 17:00 26 104/74 Mechanical Ventilator 100 03/16/20 17:00 26 Mechanical Ventilator 100 03/16/20 16:00 Mechanical Ventilator 03/16/20 16:00 100 03/16/20 16:00 108/49 03/16/20 16:00 26 108/49 Mechanical Ventilator 100 03/16/20 16:00 26 Mechanical Ventilator 100 03/16/20 16:00 53 03/16/20 16:00 98.4 52 26 108/49 (68) 94 03/16/20 15:30 117/96 03/16/20 15:30 26 Mechanical Ventilator 100 03/16/20 15:30 72 16 117/96 (103) 96 03/16/20 15:15 54 21 134/65 (88) 97 03/16/20 15:00 134/64 03/16/20 15:00 26 134/64 Mechanical Ventilator 100 03/16/20 15:00 26 Mechanical Ventilator 100 03/16/20 15:00 53 19 134/64 (87) 95 03/16/20 14:52 53 26 100 03/16/20 14:45 53 19 133/67 (89) 99 03/16/20 14:30 53 23 129/65 (86) 98 03/16/20 14:30 26 Mechanical Ventilator 100 03/16/20 14:19 122/60 03/16/20 14:15 52 25 122/60 (80) 95 03/16/20 14:13 100 03/16/20 14:00 117/62 03/16/20 14:00 26 117/62 Mechanical Ventilator 100 03/16/20 14:00 26 Mechanical Ventilator 100 03/16/20 14:00 52 15 117/62 (80) 98 03/16/20 13:45 53 19 102/57 (72) 97 03/16/20 13:30 98.3 55 12 89/51 (64) 87 03/16/20 13:30 22 89/51 Mechanical Ventilator 100 03/16/20 13:15 56 22 82/47 (59) 79 03/16/20 13:00 88/50 03/16/20 13:00 22 88/50 Mechanical Ventilator 100 03/16/20 13:00 22 Mechanical Ventilator 100 03/16/20 13:00 56 22 88/50 (63) 80 03/16/20 12:30 57 22 87/54 (65) 74 03/16/20 12:15 58 22 91/51 (64) 73 03/16/20 12:10 22 91/49 Mechanical Ventilator 100 03/16/20 12:00 53 03/16/20 12:00 91/51 03/16/20 12:00 22 91/51 Mechanical Ventilator 100.0 03/16/20 12:00 22 Mechanical Ventilator 100 03/16/20 12:00 Mechanical Ventilator 03/16/20 12:00 100 03/16/20 12:00 99.8 56 22 91/49 (63) 80 03/16/20 11:45 58 22 91/47 (62) 67 I&O Intake and Output 03/16/20 03/17/20 19:00 07:00 Intake Total 2766.731 ml 2722.9863 ml Output Total 360 ml 675 ml Balance 2406.731 ml 2047.9863 ml IV Total 2606.731 ml 2462.9863 ml Tube Feeding 40 ml 260 ml Other 120 ml Output Urine Total 360 ml 675 ml Dressing: other Wound: other Drains: other Cardiovascular: RSR Respiratory: decreased breath sounds Abdomen: soft, non-distended Extremities: edema, no cyanosis Laboratory Tests Test 03/16/20 15:43 03/17/20 09:00 Arterial Blood pH 7.400 (7.350-7.450) Arterial Blood Partial Pressure CO2 46.8 mmHg (35.0-45.0) H Arterial Blood Partial Pressure O2 69.6 mmHg (75.0-100.0) L Arterial Blood HCO3 28.3 mmol/L (22.0-26.0) H Arterial Blood Oxygen Saturation 93.0 % (95-100) L Arterial Blood Base Excess 3 (-2-2) H Joaquin Test Positive White Blood Count 13.0 K/UL (4.8-10.8) H Red Blood Count 3.23 M/UL (4.20-5.40) L Hemoglobin 10.6 G/DL (12.0-16.0) L Hematocrit 32.1 % (37.0-47.0) L Mean Corpuscular Volume 100 FL (80-99) H Mean Corpuscular Hemoglobin 33.0 PG (27.0-31.0) H Mean Corpuscular Hemoglobin Concent 33.1 G/DL (32.0-36.0) Red Cell Distribution Width 16.8 % (11.6-14.8) H Platelet Count 103 K/UL (150-450) L Mean Platelet Volume 6.8 FL (6.5-10.1) Neutrophils (%) (Auto) 76.4 % (45.0-75.0) H Lymphocytes (%) (Auto) 11.7 % (20.0-45.0) L Monocytes (%) (Auto) 6.4 % (1.0-10.0) Eosinophils (%) (Auto) 4.7 % (0.0-3.0) H Basophils (%) (Auto) 0.8 % (0.0-2.0) Sodium Level 126 MMOL/L (136-145) L Potassium Level 3.6 MMOL/L (3.5-5.1) Chloride Level 93 MMOL/L (98-107) L Carbon Dioxide Level 30 MMOL/L (21-32) Anion Gap 3 mmol/L (5-15) L Blood Urea Nitrogen 9 mg/dL (7-18) Creatinine 0.8 MG/DL (0.55-1.30) Estimat Glomerular Filtration Rate > 60 mL/min (>60) Glucose Level 150 MG/DL (74-106) H Calcium Level 7.2 MG/DL (8.5-10.1) L Magnesium Level 1.7 MG/DL (1.8-2.4) L Total Bilirubin 1.7 MG/DL (0.2-1.0) H Direct Bilirubin 0.9 MG/DL (0.0-0.3) H Aspartate Amino Transf (AST/SGOT) 73 U/L (15-37) H Alanine Aminotransferase (ALT/SGPT) 19 U/L (12-78) Alkaline Phosphatase 116 U/L (46-116) Total Protein 8.2 G/DL (6.4-8.2) Albumin 1.6 G/DL (3.4-5.0) L Globulin 6.6 g/dL Albumin/Globulin Ratio 0.2 (1.0-2.7) L Thyroid Stimulating Hormone (TSH) 14.208 uiU/mL (0.358-3.740) Cortisol Pending Plan Problems: (1) Cellulitis Assessment & Plan: bilateral lower extremity cellulitis / edema chronic venous status changes dermatitis no abscess no purulent drainage ulcerations forming. keep lower extremity elevated while in bed apply skin protectant / moisturizing cream daily okay to shower okay to wrap soft after cream abx as per ID for cellulitis okay for diet duplex ordered trend labs will follow with recs thank you No evidence of deep venous thrombosis involving the visualized veins of the RIGHT lower extremity. refused eval of left COVID ++ cxr noted cont current supportive care improving labs stable improving slowly wean pressors as tolerated Patient is acutely worsened intubated on vent support 2 pressors now worsening labs worsening Prognosis is guarded we will continue with maximal support efforts (2) COVID-19 Assessment & Plan: see above Theron Sotomayor March 17, 2020 11:45
--- NOTE | 2020-03-17 16:45 | General Progress Note ---
Assessment/Plan Problem List: (1) Cellulitis ICD Codes: L03.90 - Cellulitis, unspecified SNOMED: [id number] Qualifiers: Qualified Codes: L03.119 - Cellulitis of unspecified part of limb Status: progressing, unchanged Assessment/Plan: leukocytosis hyponatremia consulted dr valera elevated tsh consulted dr khanna afebrile abx per id celluitis improve coivd positive resps insuff pna sepsis anemia cirrhosis Subjective ROS Limited/Unobtainable: Yes Allergies: Coded Allergies: No Known Allergies (Unverified , 02/29/20) Objective Last 24 Hour Vital Signs Date Time Temp Pulse Resp B/P (MAP) Pulse Ox O2 Delivery O2 Flow Rate FiO2 03/17/20 16:40 67 30 100 03/17/20 16:00 100 03/17/20 16:00 91 03/17/20 16:00 Mechanical Ventilator 03/17/20 15:01 107/57 03/17/20 15:01 107/57 03/17/20 15:01 29 107/57 Mechanical Ventilator 100 03/17/20 15:01 30 Mechanical Ventilator 100 03/17/20 14:58 66 29 100 03/17/20 14:45 80 26 105/52 (69) 90 03/17/20 14:30 89 26 109/58 (75) 91 03/17/20 14:15 72 18 124/72 (89) 95 03/17/20 14:00 127/69 03/17/20 14:00 127/69 03/17/20 14:00 30 127/69 Mechanical Ventilator 100 03/17/20 14:00 30 Non-Rebreather 100 03/17/20 14:00 70 11 127/69 (88) 96 03/17/20 13:45 69 16 130/70 (90) 96 03/17/20 13:42 122/62 03/17/20 13:42 122/62 03/17/20 13:30 73 15 122/62 (82) 96 03/17/20 13:15 81 17 124/57 (79) 98 03/17/20 13:00 118/62 03/17/20 13:00 118/62 03/17/20 13:00 31 118/62 Mechanical Ventilator 100 03/17/20 13:00 30 Mechanical Ventilator 100 03/17/20 13:00 65 14 118/62 (80) 95 03/17/20 12:59 66 29 100 03/17/20 12:45 66 14 117/64 (81) 96 03/17/20 12:30 67 18 118/66 (83) 96 03/17/20 12:15 82 16 110/64 (79) 93 03/17/20 12:00 100 03/17/20 12:00 98.9 69 19 107/58 (74) 90 03/17/20 12:00 107/58 03/17/20 12:00 118/66 03/17/20 12:00 31 107/58 Mechanical Ventilator 100 03/17/20 12:00 35 Mechanical Ventilator 100 03/17/20 12:00 Mechanical Ventilator 03/17/20 12:00 83 03/17/20 11:45 69 14 96/51 (66) 91 03/17/20 11:37 98.9 03/17/20 11:30 78 16 105/57 (73) 85 03/17/20 11:15 72 12 104/66 (79) 96 03/17/20 11:04 31 104/61 Mechanical Ventilator 100 03/17/20 11:00 104/61 03/17/20 11:00 104/61 03/17/20 11:00 30 104/61 Mechanical Ventilator 100 03/17/20 11:00 30 Mechanical Ventilator 100 03/17/20 11:00 73 16 104/61 (75) 94 03/17/20 10:58 68 29 100 03/17/20 10:45 100.5 67 17 113/62 (79) 91 03/17/20 10:30 67 18 105/58 (74) 95 03/17/20 10:15 67 20 117/64 (81) 92 03/17/20 10:00 113/63 03/17/20 10:00 113/63 03/17/20 10:00 31 113/63 Mechanical Ventilator 100 03/17/20 10:00 30 Mechanical Ventilator 100 03/17/20 10:00 71 20 113/63 (80) 94 03/17/20 09:45 80 19 109/62 (78) 94 03/17/20 09:30 121/65 03/17/20 09:30 73 18 121/65 (83) 98 03/17/20 09:15 80 17 128/74 (92) 97 03/17/20 09:07 83 30 100 03/17/20 09:00 87 15 137/56 (83) 89 03/17/20 09:00 137/56 03/17/20 09:00 137/56 03/17/20 09:00 31 137/56 Mechanical Ventilator 100 03/17/20 09:00 31 Mechanical Ventilator 100 03/17/20 08:47 62/39 03/17/20 08:45 66 16 125/72 (89) 87 03/17/20 08:45 137/56 03/17/20 08:42 63/39 03/17/20 08:40 118/56 03/17/20 08:30 69 17 82/49 (60) 88 03/17/20 08:30 31 118/56 Mechanical Ventilator 100 03/17/20 08:15 68 16 118/56 (76) 88 03/17/20 08:00 100 03/17/20 08:00 Mechanical Ventilator 03/17/20 08:00 100.2 68 23 130/62 (84) 89 03/17/20 08:00 130/62 03/17/20 08:00 130/62 03/17/20 08:00 22 130/62 Mechanical Ventilator 100 03/17/20 08:00 31 Mechanical Ventilator 100 03/17/20 08:00 68 03/17/20 07:45 68 19 137/63 (87) 89 03/17/20 07:30 67 24 130/65 (86) 90 03/17/20 07:15 67 17 134/60 (84) 97 03/17/20 07:10 74 29 100 03/17/20 07:00 70 19 132/66 (88) 92 03/17/20 07:00 134/60 03/17/20 07:00 134/60 03/17/20 07:00 16 134/60 Mechanical Ventilator 100 03/17/20 07:00 19 Mechanical Ventilator 100 03/17/20 06:45 69 20 125/67 (86) 90 03/17/20 06:30 70 22 123/56 (78) 91 03/17/20 06:15 99.8 71 19 127/73 (91) 89 03/17/20 06:00 72 19 119/60 (79) 92 03/17/20 06:00 119/60 03/17/20 06:00 119/60 03/17/20 06:00 19 119/60 Mechanical Ventilator 100 03/17/20 06:00 19 Mechanical Ventilator 100 03/17/20 05:45 75 20 123/68 (86) 92 03/17/20 05:30 71 20 128/72 (90) 90 03/17/20 05:15 75 23 122/63 (82) 89 03/17/20 05:00 127/65 03/17/20 05:00 127/65 03/17/20 05:00 19 127/65 Mechanical Ventilator 100 03/17/20 05:00 19 Mechanical Ventilator 100 03/17/20 05:00 71 23 127/65 (85) 88 03/17/20 04:45 70 24 138/75 (96) 94 03/17/20 04:41 71 27 100 03/17/20 04:30 70 18 137/73 (94) 91 03/17/20 04:15 69 22 139/76 (97) 92 03/17/20 04:00 Mechanical Ventilator 03/17/20 04:00 139/76 03/17/20 04:00 139/76 03/17/20 04:00 19 139/76 Mechanical Ventilator 100 03/17/20 04:00 20 Mechanical Ventilator 100 03/17/20 04:00 100 03/17/20 04:00 100.1 70 24 132/64 (86) 92 03/17/20 03:45 69 18 123/70 (87) 88 03/17/20 03:30 82 23 100/57 (71) 89 03/17/20 03:30 137/68 03/17/20 03:15 70 22 137/68 (91) 90 03/17/20 03:01 70 03/17/20 03:00 70 23 136/70 (92) 91 03/17/20 03:00 137/68 03/17/20 03:00 137/68 03/17/20 03:00 26 136/70 Mechanical Ventilator 100 03/17/20 03:00 21 Mechanical Ventilator 100 03/17/20 02:45 66 19 137/68 (91) 91 03/17/20 02:32 26 114/65 Mechanical Ventilator 100 03/17/20 02:30 66 22 124/64 (84) 90 03/17/20 02:30 124/64 03/17/20 02:30 124/64 03/17/20 02:25 74 26 100 03/17/20 02:15 80 24 114/65 (81) 82 03/17/20 02:00 124/63 03/17/20 02:00 124/63 03/17/20 02:00 21 124/63 Mechanical Ventilator 100 03/17/20 02:00 21 Mechanical Ventilator 100 03/17/20 02:00 67 20 124/63 (83) 73 03/17/20 01:45 66 20 132/77 (95) 80 03/17/20 01:30 66 17 137/66 (89) 83 03/17/20 01:15 67 18 135/67 (89) 84 03/17/20 01:00 131/73 03/17/20 01:00 131/73 03/17/20 01:00 20 131/73 Mechanical Ventilator 100 03/17/20 01:00 20 Mechanical Ventilator 100 03/17/20 01:00 68 17 131/73 (92) 78 03/17/20 00:45 67 13 131/70 (90) 85 03/17/20 00:30 65 22 130/66 (87) 84 03/17/20 00:15 76 19 121/57 (78) 85 03/17/20 00:09 75 03/17/20 00:00 100.1 73 12 124/68 (86) 93 03/17/20 00:00 124/68 03/17/20 00:00 124/68 03/17/20 00:00 20 124/68 Mechanical Ventilator 100 03/17/20 00:00 21 Mechanical Ventilator 100 03/17/20 00:00 Mechanical Ventilator 03/17/20 00:00 100 03/16/20 23:45 65 18 125/55 (78) 96 03/16/20 23:30 66 19 122/58 (79) 95 03/16/20 23:15 68 14 116/60 (78) 93 03/16/20 23:00 67 19 120/55 (76) 63 03/16/20 23:00 120/55 03/16/20 23:00 120/55 03/16/20 23:00 20 120/55 Mechanical Ventilator 100 03/16/20 23:00 20 Mechanical Ventilator 100 03/16/20 22:54 91/54 03/16/20 22:45 68 14 91/45 (60) 79 03/16/20 22:45 19 125/55 Mechanical Ventilator 100 03/16/20 22:31 77 26 100 03/16/20 22:30 15 111/62 Mechanical Ventilator 100 03/16/20 22:30 85 13 86/40 (55) 73 03/16/20 22:15 66 21 137/65 (89) 82 03/16/20 22:00 20 Mechanical Ventilator 100 03/16/20 22:00 67 20 138/69 (92) 87 03/16/20 21:30 72 19 138/57 (84) 82 03/16/20 21:15 74 23 137/71 (93) 82 03/16/20 21:00 75 18 133/66 (88) 81 03/16/20 21:00 133/66 03/16/20 21:00 20 133/66 Mechanical Ventilator 100 03/16/20 21:00 20 Mechanical Ventilator 100 03/16/20 20:45 76 22 128/72 (90) 82 03/16/20 20:30 61 26 119/63 (81) 93 03/16/20 20:15 63 26 90/58 (69) 85 03/16/20 20:00 Mechanical Ventilator 03/16/20 20:00 100 03/16/20 20:00 98/55 03/16/20 20:00 22 98/55 Mechanical Ventilator 100 03/16/20 20:00 22 Mechanical Ventilator 100 03/16/20 20:00 98.9 56 9 98/55 (69) 72 03/16/20 19:56 102/57 03/16/20 19:45 56 5 102/57 (72) 78 03/16/20 19:40 55 03/16/20 19:30 60 0 94/52 (66) 68 03/16/20 19:15 55 26 99/57 (71) 89 03/16/20 19:06 64 26 100 03/16/20 19:00 55 26 121/51 (74) 96 03/16/20 19:00 121/51 03/16/20 19:00 26 121/51 Mechanical Ventilator 100 03/16/20 19:00 26 Mechanical Ventilator 100 03/16/20 18:45 55 26 118/78 (91) 95 03/16/20 18:30 55 26 113/45 (67) 95 03/16/20 18:21 112/56 03/16/20 18:15 26 Mechanical Ventilator 100 03/16/20 18:15 54 26 112/56 (74) 95 03/16/20 18:00 54 26 108/56 (73) 95 03/16/20 18:00 108/56 03/16/20 18:00 26 108/56 Mechanical Ventilator 100 03/16/20 18:00 26 Mechanical Ventilator 100 03/16/20 17:45 54 26 105/59 (74) 93 03/16/20 17:30 54 26 86/72 (77) 93 03/16/20 17:22 58 26 100 03/16/20 17:15 55 26 104/72 (83) 91 03/16/20 17:12 26 104/74 Mechanical Ventilator 100 03/16/20 17:00 55 26 104/74 (84) 88 03/16/20 17:00 104/74 03/16/20 17:00 26 104/74 Mechanical Ventilator 100 03/16/20 17:00 26 Mechanical Ventilator 100 Intake and Output 03/16/20 03/17/20 19:00 07:00 Intake Total 2766.731 ml 2722.9863 ml Output Total 360 ml 675 ml Balance 2406.731 ml 2047.9863 ml IV Total 2606.731 ml 2462.9863 ml Tube Feeding 40 ml 260 ml Other 120 ml Output Urine Total 360 ml 675 ml Laboratory Tests 03/17/20 09:00: White Blood Count 13.0H, Red Blood Count 3.23L, Hemoglobin 10.6L, Hematocrit 32.1L, Mean Corpuscular Volume 100H, Mean Corpuscular Hemoglobin 33.0H, Mean Corpuscular Hemoglobin Concent 33.1, Red Cell Distribution Width 16.8H, Platelet Count 103L, Mean Platelet Volume 6.8, Neutrophils (%) (Auto) 76.4H, Lymphocytes (%) (Auto) 11.7L, Monocytes (%) (Auto) 6.4, Eosinophils (%) (Auto) 4.7H, Basophils (%) (Auto) 0.8, Sodium Level 126L, Potassium Level 3.6, Chloride Level 93L, Carbon Dioxide Level 30, Anion Gap 3L, Blood Urea Nitrogen 9 , Creatinine 0.8, Estimat Glomerular Filtration Rate > 60, Glucose Level 150H, Calcium Level 7.2L, Magnesium Level 1.7L, Total Bilirubin 1.7H, Direct Bilirubin 0.9H, Aspartate Amino Transf (AST/SGOT) 73H, Alanine Aminotransferase (ALT/SGPT) 19, Alkaline Phosphatase 116, Total Protein 8.2, Albumin 1.6L, Globulin 6.6, Albumin/Globulin Ratio 0.2L, Thyroid Stimulating Hormone (TSH) 14.208H, Cortisol [Pending] Height (Feet): 5 Height (Inches): 1.00 Weight (Pounds): 237 Celso Mroeno MD March 17, 2020 16:45
[2020-03-17] MEDS ORDERED: Sterile Water Irrig 2000ml IRRIG ONE (17:22)
[2020-03-17] MEDS ORDERED: NS 275ml ONE (17:22)
[2020-03-17] MEDS ORDERED: NS 500ML ONE (17:22)
[2020-03-17] MEDS ORDERED: Tubing IV Secondary IV ONE (17:22)
[2020-03-17] MEDS: fentaNYL Citrate 2,500 MCG in NS 200 ML IV SCH (18:30)
[2020-03-17] MEDS: Norepinephrine Bitartrate 16 MG in D5W 500ml 484 ML IV SCH ×2 (19:00→21:00)
[2020-03-17] MEDS: Dyna-Hex 2% Top Sol 2oz TOPIC SCH (21:44)
[2020-03-17] MEDS: Vasopressin 100 UNITS in NS 95 ML IV PRN (23:56)
--- NOTE | 2020-03-17 23:59 | Cardiology Progress Note ---
Assessment/Plan Assessment/Plan 1. Acute respiratory failure with hypoxic hypercapnea due to bilateral PNA caused by COVID-19 infection, pulmonary and ID f/u. 2. Septic shock on dopamine and levophed gtt, keep MAP at 65 mmHg and above. 3. Noncardiac chest pain on presentation, acute myocardial function is ruled out by two negative troponin I levels, 12-lead electrocardiogram does not show any acute ischemic changes. 4. Bilateral lower extremity cellulitis with Pseudomonas aeruginosa in culture. 5. Pancytopenia, most likely due to hepatitis C virus infection/liver cirrhosis. Subjective Subjective Sinus bradycardia at rate of 78. Was started on dopamine gtt. Objective Last 24 Hour Vital Signs Date Time Temp Pulse Resp B/P (MAP) Pulse Ox O2 Delivery O2 Flow Rate FiO2 03/17/20 22:10 26 159/77 Mechanical Ventilator 100 03/17/20 22:00 78 26 159/77 (104) 96 03/17/20 22:00 159/77 03/17/20 22:00 159/77 03/17/20 22:00 26 Mechanical Ventilator 100 03/17/20 21:45 74 35 148/72 (97) 96 03/17/20 21:30 63 31 136/68 (90) 96 03/17/20 21:15 68 26 124/60 (81) 93 03/17/20 21:10 24 150/70 Mechanical Ventilator 100 03/17/20 21:00 69 21 150/70 (96) 94 03/17/20 21:00 150/70 03/17/20 21:00 136/68 03/17/20 21:00 150/70 03/17/20 21:00 24 Mechanical Ventilator 100 03/17/20 20:45 69 23 152/71 (98) 94 03/17/20 20:44 67 26 100 03/17/20 20:30 68 22 152/70 (97) 94 03/17/20 20:15 68 21 148/72 (97) 94 03/17/20 20:10 22 152/69 Mechanical Ventilator 100 03/17/20 20:00 100 03/17/20 20:00 152/74 03/17/20 20:00 152/74 03/17/20 20:00 22 Mechanical Ventilator 100 03/17/20 20:00 Mechanical Ventilator 03/17/20 20:00 98.2 69 22 152/74 (100) 93 03/17/20 19:45 69 22 149/72 (97) 93 03/17/20 19:30 70 22 147/72 (97) 93 03/17/20 19:15 68 23 155/77 (103) 92 03/17/20 19:10 21 152/69 Mechanical Ventilator 100 03/17/20 19:00 66 22 152/69 (96) 94 03/17/20 19:00 152/69 03/17/20 19:00 152/69 03/17/20 19:00 152/69 03/17/20 19:00 30 152/69 Mechanical Ventilator 100 03/17/20 19:00 30 Mechanical Ventilator 100 03/17/20 18:45 68 29 100 03/17/20 18:30 30 Mechanical Ventilator 100 03/17/20 18:00 69 22 130/66 (87) 93 03/17/20 18:00 130/66 03/17/20 18:00 30 130/66 Mechanical Ventilator 100 03/17/20 18:00 30 Mechanical Ventilator 100 03/17/20 17:54 134/63 03/17/20 17:50 130/66 03/17/20 17:45 72 21 134/63 (86) 91 03/17/20 17:30 68 24 138/67 (90) 94 03/17/20 17:30 138/67 03/17/20 17:29 138/67 03/17/20 17:15 70 24 113/58 (76) 93 03/17/20 17:00 68 20 141/69 (93) 93 03/17/20 17:00 141/69 03/17/20 17:00 141/69 03/17/20 17:00 30 141/69 Mechanical Ventilator 100 03/17/20 17:00 30 Mechanical Ventilator 100 03/17/20 16:45 68 16 139/66 (90) 93 03/17/20 16:40 67 30 100 03/17/20 16:30 68 18 138/66 (90) 93 03/17/20 16:15 70 17 135/62 (86) 93 03/17/20 16:00 100 03/17/20 16:00 98.2 68 25 131/69 (89) 91 03/17/20 16:00 131/69 03/17/20 16:00 131/69 03/17/20 16:00 30 131/69 Mechanical Ventilator 100 03/17/20 16:00 30 Mechanical Ventilator 100 03/17/20 16:00 91 03/17/20 16:00 Mechanical Ventilator 03/17/20 15:45 66 31 133/63 (86) 92 03/17/20 15:30 66 24 133/67 (89) 92 03/17/20 15:15 65 27 120/62 (81) 92 03/17/20 15:01 107/57 03/17/20 15:01 107/57 03/17/20 15:01 29 107/57 Mechanical Ventilator 100 03/17/20 15:01 30 Mechanical Ventilator 100 03/17/20 15:00 68 31 107/57 (74) 92 03/17/20 14:58 66 29 100 03/17/20 14:45 80 26 105/52 (69) 90 03/17/20 14:30 89 26 109/58 (75) 91 03/17/20 14:15 72 18 124/72 (89) 95 03/17/20 14:00 127/69 03/17/20 14:00 127/69 03/17/20 14:00 30 127/69 Mechanical Ventilator 100 03/17/20 14:00 30 Non-Rebreather 100 03/17/20 14:00 70 11 127/69 (88) 96 03/17/20 13:45 69 16 130/70 (90) 96 03/17/20 13:42 122/62 03/17/20 13:42 122/62 03/17/20 13:30 73 15 122/62 (82) 96 03/17/20 13:15 81 17 124/57 (79) 98 03/17/20 13:00 118/62 03/17/20 13:00 118/62 03/17/20 13:00 31 118/62 Mechanical Ventilator 100 03/17/20 13:00 30 Mechanical Ventilator 100 03/17/20 13:00 65 14 118/62 (80) 95 03/17/20 12:59 66 29 100 03/17/20 12:45 66 14 117/64 (81) 96 03/17/20 12:30 67 18 118/66 (83) 96 03/17/20 12:15 82 16 110/64 (79) 93 03/17/20 12:00 100 03/17/20 12:00 98.9 69 19 107/58 (74) 90 03/17/20 12:00 107/58 03/17/20 12:00 118/66 03/17/20 12:00 31 107/58 Mechanical Ventilator 100 03/17/20 12:00 35 Mechanical Ventilator 100 03/17/20 12:00 Mechanical Ventilator 03/17/20 12:00 83 03/17/20 11:45 69 14 96/51 (66) 91 03/17/20 11:37 98.9 03/17/20 11:30 78 16 105/57 (73) 85 03/17/20 11:15 72 12 104/66 (79) 96 03/17/20 11:04 31 104/61 Mechanical Ventilator 100 03/17/20 11:00 104/61 03/17/20 11:00 104/61 03/17/20 11:00 30 104/61 Mechanical Ventilator 100 03/17/20 11:00 30 Mechanical Ventilator 100 03/17/20 11:00 73 16 104/61 (75) 94 03/17/20 10:58 68 29 100 03/17/20 10:45 100.5 67 17 113/62 (79) 91 03/17/20 10:30 67 18 105/58 (74) 95 03/17/20 10:15 67 20 117/64 (81) 92 03/17/20 10:00 113/63 03/17/20 10:00 113/63 03/17/20 10:00 31 113/63 Mechanical Ventilator 100 03/17/20 10:00 30 Mechanical Ventilator 100 03/17/20 10:00 71 20 113/63 (80) 94 03/17/20 09:45 80 19 109/62 (78) 94 03/17/20 09:30 121/65 03/17/20 09:30 73 18 121/65 (83) 98 03/17/20 09:15 80 17 128/74 (92) 97 03/17/20 09:07 83 30 100 03/17/20 09:00 87 15 137/56 (83) 89 03/17/20 09:00 137/56 03/17/20 09:00 137/56 03/17/20 09:00 31 137/56 Mechanical Ventilator 100 03/17/20 09:00 31 Mechanical Ventilator 100 03/17/20 08:47 62/39 03/17/20 08:45 66 16 125/72 (89) 87 03/17/20 08:45 137/56 03/17/20 08:42 63/39 03/17/20 08:40 118/56 03/17/20 08:30 69 17 82/49 (60) 88 03/17/20 08:30 31 118/56 Mechanical Ventilator 100 03/17/20 08:15 68 16 118/56 (76) 88 03/17/20 08:00 100 03/17/20 08:00 Mechanical Ventilator 03/17/20 08:00 100.2 68 23 130/62 (84) 89 03/17/20 08:00 130/62 03/17/20 08:00 130/62 03/17/20 08:00 22 130/62 Mechanical Ventilator 100 03/17/20 08:00 31 Mechanical Ventilator 100 03/17/20 08:00 68 03/17/20 07:45 68 19 137/63 (87) 89 03/17/20 07:30 67 24 130/65 (86) 90 03/17/20 07:15 67 17 134/60 (84) 97 03/17/20 07:10 74 29 100 03/17/20 07:00 70 19 132/66 (88) 92 03/17/20 07:00 134/60 03/17/20 07:00 134/60 03/17/20 07:00 16 134/60 Mechanical Ventilator 100 03/17/20 07:00 19 Mechanical Ventilator 100 03/17/20 06:45 69 20 125/67 (86) 90 03/17/20 06:30 70 22 123/56 (78) 91 03/17/20 06:15 99.8 71 19 127/73 (91) 89 03/17/20 06:00 72 19 119/60 (79) 92 03/17/20 06:00 119/60 03/17/20 06:00 119/60 03/17/20 06:00 19 119/60 Mechanical Ventilator 100 03/17/20 06:00 19 Mechanical Ventilator 100 03/17/20 05:45 75 20 123/68 (86) 92 03/17/20 05:30 71 20 128/72 (90) 90 03/17/20 05:15 75 23 122/63 (82) 89 03/17/20 05:00 127/65 03/17/20 05:00 127/65 03/17/20 05:00 19 127/65 Mechanical Ventilator 100 03/17/20 05:00 19 Mechanical Ventilator 100 03/17/20 05:00 71 23 127/65 (85) 88 03/17/20 04:45 70 24 138/75 (96) 94 03/17/20 04:41 71 27 100 03/17/20 04:30 70 18 137/73 (94) 91 03/17/20 04:15 69 22 139/76 (97) 92 03/17/20 04:00 100 03/17/20 04:00 Mechanical Ventilator 03/17/20 04:00 139/76 03/17/20 04:00 139/76 03/17/20 04:00 19 139/76 Mechanical Ventilator 100 03/17/20 04:00 20 Mechanical Ventilator 100 03/17/20 04:00 100.1 70 24 132/64 (86) 92 03/17/20 03:45 69 18 123/70 (87) 88 03/17/20 03:30 82 23 100/57 (71) 89 03/17/20 03:30 137/68 03/17/20 03:15 70 22 137/68 (91) 90 03/17/20 03:01 70 03/17/20 03:00 70 23 136/70 (92) 91 03/17/20 03:00 137/68 03/17/20 03:00 137/68 03/17/20 03:00 26 136/70 Mechanical Ventilator 100 03/17/20 03:00 21 Mechanical Ventilator 100 03/17/20 02:45 66 19 137/68 (91) 91 03/17/20 02:32 26 114/65 Mechanical Ventilator 100 03/17/20 02:30 66 22 124/64 (84) 90 03/17/20 02:30 124/64 03/17/20 02:30 124/64 03/17/20 02:25 74 26 100 03/17/20 02:15 80 24 114/65 (81) 82 03/17/20 02:00 124/63 03/17/20 02:00 124/63 03/17/20 02:00 21 124/63 Mechanical Ventilator 100 03/17/20 02:00 21 Mechanical Ventilator 100 03/17/20 02:00 67 20 124/63 (83) 73 03/17/20 01:45 66 20 132/77 (95) 80 03/17/20 01:30 66 17 137/66 (89) 83 03/17/20 01:15 67 18 135/67 (89) 84 03/17/20 01:00 131/73 03/17/20 01:00 131/73 03/17/20 01:00 20 131/73 Mechanical Ventilator 100 03/17/20 01:00 20 Mechanical Ventilator 100 03/17/20 01:00 68 17 131/73 (92) 78 03/17/20 00:45 67 13 131/70 (90) 85 03/17/20 00:30 65 22 130/66 (87) 84 03/17/20 00:15 76 19 121/57 (78) 85 03/17/20 00:09 75 03/17/20 00:00 100.1 73 12 124/68 (86) 93 03/17/20 00:00 100 03/17/20 00:00 124/68 03/17/20 00:00 124/68 03/17/20 00:00 20 124/68 Mechanical Ventilator 100 03/17/20 00:00 21 Mechanical Ventilator 100 03/17/20 00:00 Mechanical Ventilator Intake and Output 03/16/20 03/17/20 19:00 07:00 Intake Total 2766.731 ml 2722.9863 ml Output Total 360 ml 675 ml Balance 2406.731 ml 2047.9863 ml IV Total 2606.731 ml 2462.9863 ml Tube Feeding 40 ml 260 ml Other 120 ml Output Urine Total 360 ml 675 ml Laboratory Tests Test 03/17/20 09:00 White Blood Count 13.0 K/UL (4.8-10.8) H Red Blood Count 3.23 M/UL (4.20-5.40) L Hemoglobin 10.6 G/DL (12.0-16.0) L Hematocrit 32.1 % (37.0-47.0) L Mean Corpuscular Volume 100 FL (80-99) H Mean Corpuscular Hemoglobin 33.0 PG (27.0-31.0) H Mean Corpuscular Hemoglobin Concent 33.1 G/DL (32.0-36.0) Red Cell Distribution Width 16.8 % (11.6-14.8) H Platelet Count 103 K/UL (150-450) L Mean Platelet Volume 6.8 FL (6.5-10.1) Neutrophils (%) (Auto) 76.4 % (45.0-75.0) H Lymphocytes (%) (Auto) 11.7 % (20.0-45.0) L Monocytes (%) (Auto) 6.4 % (1.0-10.0) Eosinophils (%) (Auto) 4.7 % (0.0-3.0) H Basophils (%) (Auto) 0.8 % (0.0-2.0) Sodium Level 126 MMOL/L (136-145) L Potassium Level 3.6 MMOL/L (3.5-5.1) Chloride Level 93 MMOL/L (98-107) L Carbon Dioxide Level 30 MMOL/L (21-32) Anion Gap 3 mmol/L (5-15) L Blood Urea Nitrogen 9 mg/dL (7-18) Creatinine 0.8 MG/DL (0.55-1.30) Estimat Glomerular Filtration Rate > 60 mL/min (>60) Glucose Level 150 MG/DL (74-106) H Calcium Level 7.2 MG/DL (8.5-10.1) L Magnesium Level 1.7 MG/DL (1.8-2.4) L Total Bilirubin 1.7 MG/DL (0.2-1.0) H Direct Bilirubin 0.9 MG/DL (0.0-0.3) H Aspartate Amino Transf (AST/SGOT) 73 U/L (15-37) H Alanine Aminotransferase (ALT/SGPT) 19 U/L (12-78) Alkaline Phosphatase 116 U/L (46-116) Total Protein 8.2 G/DL (6.4-8.2) Albumin 1.6 G/DL (3.4-5.0) L Globulin 6.6 g/dL Albumin/Globulin Ratio 0.2 (1.0-2.7) L Thyroid Stimulating Hormone (TSH) 14.208 uiU/mL (0.358-3.740) Cortisol Pending Microbiology Date/Time Source Procedure Growth Status 03/16/20 20:50 Sputum Gram Stain - Final Resulted 03/16/20 20:50 Sputum Sputum Culture Pending Resulted Objective HEENT: Atraumatic and normocephalic. Anicteric. Intubated. NECK: JVP cannot be assessed. No carotid bruit. + ETT. CARDIOVASCULAR: Normal S1, S2. Regular rate and rhythm. No murmurs, gallops, or rubs. PMI is at fourth intercostal space at left midclavicular line. LUNGS: Bibasilar crackles. ABDOMEN: Soft, nontender, and nondistended. No hepatosplenomegaly. Positive bowel sounds. EXTREMITIES: A 2+ edema bilaterally associated with erythema with blistering and crust formation of both feet. Berto Gonzalez MD March 17, 2020 23:59
[2020-03-18] VITALS (57 sets, daily range): BP systolic 87–146; BP diastolic 50–80
[2020-03-18] MEDS: NovoLOG Insulin Flexpen SUBQ SCH ×4 (00:01→18:00)
--- NOTE | 2020-03-18 02:30 | Pulmonolgy Critical Care Note ---
Critical Care - Asmt/Plan Assessment/Plan: Pulmonary CCM Progress Note HPI Patient is a 59 year old woman with significant obesity, admitted with bilateral lower extremity cellulitis, had complained of increased swelling and redness to both of her feet and legs Had elevated BNP on admission, persistent edema since admission, worsening hypoxia, LE DVT (right) negative for DVT. Patient is a poor historian reports that she has been having increased weakness over several days [employer]OR OF [employer], had denied any fevers, vomiting or diarrhea [employer], had previous hospitalizations for cellulitis. COVID 19 positive, Pneumonia VQ no significant perfusion abnormality Prev LE dupplex negative High D Dimer level, on Lovenox PPX Being diuresed, slightly improving infiltrates on CXR, on ACPC,Proned as tolerated Intubated, PEEP 14 Seen earlier Seen on 03/17/2020 Allergies: No Known Allergies Past Medical History: Obesity, Cirrhosis, Anemia, Anxiety, Cellulitis All Other Systems: negative except mentioned in HPI Physical Exam Vital Signs Noted General Appearance: Obese, Sedated,intubated Head: normocephalic, atraumatic Eyes: bilateral eye PERRL, bilateral eye EOMI ENT: EOM grossly intact, moist MM, no LN Respiratory: lungs clear, bilateral rhonchi Cardiovascular: regular rate, rhythm, HS1, HS2 RRR Gastrointestinal: Obese, soft non tender, ND Musculoskeletal: Significant edema and erythema bilateral lower extremity, patient also has crusting on both feet, Neurologic: seadted, no focalsigns Impression: Bilateral Lower Extremity Cellulitis Elevated NPA, severe bilateral edema Covid Pneumonia Worsening hypoxia, PaO2 less than 60 on 100%, elevated PCO2 of 48, no intubated Cirrhosis Splenomegaly Anemia Anxiety Plan IV Antibiotics per ID Surgery following for wounds Hematology following for anemia, observing for Neutropenia Diurese PRN Monitor labs Bronchodilators PPX - SCD, Lovenox Echocardiogram AC PC Proning NPO as will need intubation if deterioration continues IV mainenance fluids Supplement electrolytes Albuterol PRN SW Patients daughter Tri - discussed grave prognosis, suggested DNAR - will consider DW Phamacist - Remdesavir ordered Labs Noted Chest X-Ray: Cardiomegaly, left lower lobe atelectasis versus effusion, worsening infiltrates/congestion Subjective ROS Limited/Unobtainable: No Constitutional: Reports: no symptoms Gastrointestinal/Abdominal: Reports: no symptoms Musculoskeletal: Reports: other - SOB Allergies: Coded Allergies: No Known Allergies (Unverified , 02/29/20) ICU time 50 minutes Critical Care - Objective Last 24 Hour Vital Signs Date Time Temp Pulse Resp B/P (MAP) Pulse Ox O2 Delivery O2 Flow Rate FiO2 03/18/20 01:45 142/69 03/18/20 01:30 67 26 142/68 (92) 96 03/18/20 01:15 67 26 141/68 (92) 96 03/18/20 01:15 26 Mechanical Ventilator 100 03/18/20 01:10 26 141/69 Mechanical Ventilator 100 03/18/20 01:00 68 26 141/69 (93) 96 03/18/20 01:00 141/69 03/18/20 01:00 141/69 03/18/20 01:00 26 Mechanical Ventilator 100 03/18/20 00:45 69 26 142/69 (93) 96 03/18/20 00:35 68 27 100 03/18/20 00:30 68 26 143/69 (93) 96 03/18/20 00:15 68 26 143/69 (93) 96 03/18/20 00:10 26 146/72 Mechanical Ventilator 100 03/18/20 00:10 26 146/72 Mechanical Ventilator 100 03/18/20 00:00 Mechanical Ventilator 03/18/20 00:00 97.8 68 28 146/72 (96) 96 03/18/20 00:00 146/72 03/18/20 00:00 146/72 03/18/20 00:00 26 Mechanical Ventilator 100 03/17/20 23:45 69 26 146/70 (95) 96 03/17/20 23:30 69 26 145/70 (95) 96 03/17/20 23:15 69 27 147/70 (95) 96 03/17/20 23:15 69 28 100 03/17/20 23:10 27 147/70 Mechanical Ventilator 100 03/17/20 23:00 147/70 03/17/20 23:00 147/70 03/17/20 23:00 27 Mechanical Ventilator 100 03/17/20 23:00 69 27 147/70 (95) 96 03/17/20 22:45 69 26 145/70 (95) 96 03/17/20 22:30 69 27 146/70 (95) 96 03/17/20 22:15 72 26 149/71 (97) 96 03/17/20 22:10 26 159/77 Mechanical Ventilator 100 03/17/20 22:00 78 26 159/77 (104) 96 03/17/20 22:00 159/77 03/17/20 22:00 159/77 03/17/20 22:00 26 Mechanical Ventilator 100 03/17/20 21:45 74 35 148/72 (97) 96 03/17/20 21:30 63 31 136/68 (90) 96 03/17/20 21:15 68 26 124/60 (81) 93 03/17/20 21:10 24 150/70 Mechanical Ventilator 100 03/17/20 21:00 69 21 150/70 (96) 94 03/17/20 21:00 150/70 03/17/20 21:00 136/68 03/17/20 21:00 150/70 03/17/20 21:00 24 Mechanical Ventilator 100 03/17/20 20:45 69 23 152/71 (98) 94 03/17/20 20:44 67 26 100 03/17/20 20:30 68 22 152/70 (97) 94 03/17/20 20:15 68 21 148/72 (97) 94 03/17/20 20:10 22 152/69 Mechanical Ventilator 100 03/17/20 20:00 100 03/17/20 20:00 152/74 03/17/20 20:00 152/74 03/17/20 20:00 22 Mechanical Ventilator 100 03/17/20 20:00 Mechanical Ventilator 03/17/20 20:00 98.2 69 22 152/74 (100) 93 03/17/20 19:45 69 22 149/72 (97) 93 03/17/20 19:30 70 22 147/72 (97) 93 03/17/20 19:15 68 23 155/77 (103) 92 03/17/20 19:10 21 152/69 Mechanical Ventilator 100 03/17/20 19:00 66 22 152/69 (96) 94 03/17/20 19:00 152/69 03/17/20 19:00 152/69 03/17/20 19:00 152/69 03/17/20 19:00 30 152/69 Mechanical Ventilator 100 03/17/20 19:00 30 Mechanical Ventilator 100 5/1/20 18:45 68 29 100 03/17/20 18:30 30 Mechanical Ventilator 100 03/17/20 18:00 69 22 130/66 (87) 93 03/17/20 18:00 130/66 03/17/20 18:00 30 130/66 Mechanical Ventilator 100 03/17/20 18:00 30 Mechanical Ventilator 100 03/17/20 17:54 134/63 03/17/20 17:50 130/66 03/17/20 17:45 72 21 134/63 (86) 91 03/17/20 17:30 68 24 138/67 (90) 94 03/17/20 17:30 138/67 03/17/20 17:29 138/67 03/17/20 17:15 70 24 113/58 (76) 93 03/17/20 17:00 68 20 141/69 (93) 93 03/17/20 17:00 141/69 03/17/20 17:00 141/69 03/17/20 17:00 30 141/69 Mechanical Ventilator 100 03/17/20 17:00 30 Mechanical Ventilator 100 03/17/20 16:45 68 16 139/66 (90) 93 03/17/20 16:40 67 30 100 03/17/20 16:30 68 18 138/66 (90) 93 03/17/20 16:15 70 17 135/62 (86) 93 03/17/20 16:00 100 03/17/20 16:00 98.2 68 25 131/69 (89) 91 03/17/20 16:00 131/69 03/17/20 16:00 131/69 03/17/20 16:00 30 131/69 Mechanical Ventilator 100 03/17/20 16:00 30 Mechanical Ventilator 100 03/17/20 16:00 91 03/17/20 16:00 Mechanical Ventilator 03/17/20 15:45 66 31 133/63 (86) 92 03/17/20 15:30 66 24 133/67 (89) 92 03/17/20 15:15 65 27 120/62 (81) 92 03/17/20 15:01 107/57 03/17/20 15:01 107/57 03/17/20 15:01 29 107/57 Mechanical Ventilator 100 03/17/20 15:01 30 Mechanical Ventilator 100 03/17/20 15:00 68 31 107/57 (74) 92 03/17/20 14:58 66 29 100 03/17/20 14:45 80 26 105/52 (69) 90 03/17/20 14:30 89 26 109/58 (75) 91 03/17/20 14:15 72 18 124/72 (89) 95 03/17/20 14:00 127/69 03/17/20 14:00 127/69 03/17/20 14:00 30 127/69 Mechanical Ventilator 100 03/17/20 14:00 30 Non-Rebreather 100 03/17/20 14:00 70 11 127/69 (88) 96 03/17/20 13:45 69 16 130/70 (90) 96 03/17/20 13:42 122/62 03/17/20 13:42 122/62 03/17/20 13:30 73 15 122/62 (82) 96 03/17/20 13:15 81 17 124/57 (79) 98 03/17/20 13:00 118/62 03/17/20 13:00 118/62 03/17/20 13:00 31 118/62 Mechanical Ventilator 100 03/17/20 13:00 30 Mechanical Ventilator 100 03/17/20 13:00 65 14 118/62 (80) 95 03/17/20 12:59 66 29 100 03/17/20 12:45 66 14 117/64 (81) 96 03/17/20 12:30 67 18 118/66 (83) 96 03/17/20 12:15 82 16 110/64 (79) 93 03/17/20 12:00 100 03/17/20 12:00 98.9 69 19 107/58 (74) 90 03/17/20 12:00 107/58 03/17/20 12:00 118/66 03/17/20 12:00 31 107/58 Mechanical Ventilator 100 03/17/20 12:00 35 Mechanical Ventilator 100 03/17/20 12:00 Mechanical Ventilator 03/17/20 12:00 83 03/17/20 11:45 69 14 96/51 (66) 91 03/17/20 11:37 98.9 03/17/20 11:30 78 16 105/57 (73) 85 03/17/20 11:15 72 12 104/66 (79) 96 03/17/20 11:04 31 104/61 Mechanical Ventilator 100 03/17/20 11:00 104/61 03/17/20 11:00 104/61 03/17/20 11:00 30 104/61 Mechanical Ventilator 100 03/17/20 11:00 30 Mechanical Ventilator 100 03/17/20 11:00 73 16 104/61 (75) 94 03/17/20 10:58 68 29 100 03/17/20 10:45 100.5 67 17 113/62 (79) 91 03/17/20 10:30 67 18 105/58 (74) 95 03/17/20 10:15 67 20 117/64 (81) 92 03/17/20 10:00 113/63 03/17/20 10:00 113/63 03/17/20 10:00 31 113/63 Mechanical Ventilator 100 03/17/20 10:00 30 Mechanical Ventilator 100 03/17/20 10:00 71 20 113/63 (80) 94 03/17/20 09:45 80 19 109/62 (78) 94 03/17/20 09:30 121/65 03/17/20 09:30 73 18 121/65 (83) 98 03/17/20 09:15 80 17 128/74 (92) 97 03/17/20 09:07 83 30 100 03/17/20 09:00 87 15 137/56 (83) 89 03/17/20 09:00 137/56 03/17/20 09:00 137/56 03/17/20 09:00 31 137/56 Mechanical Ventilator 100 03/17/20 09:00 31 Mechanical Ventilator 100 03/17/20 08:47 62/39 03/17/20 08:45 66 16 125/72 (89) 87 03/17/20 08:45 137/56 03/17/20 08:42 63/39 03/17/20 08:40 118/56 03/17/20 08:30 69 17 82/49 (60) 88 03/17/20 08:30 31 118/56 Mechanical Ventilator 100 03/17/20 08:15 68 16 118/56 (76) 88 03/17/20 08:00 100 03/17/20 08:00 Mechanical Ventilator 03/17/20 08:00 100.2 68 23 130/62 (84) 89 03/17/20 08:00 130/62 03/17/20 08:00 130/62 03/17/20 08:00 22 130/62 Mechanical Ventilator 100 03/17/20 08:00 31 Mechanical Ventilator 100 03/17/20 08:00 68 03/17/20 07:45 68 19 137/63 (87) 89 03/17/20 07:30 67 24 130/65 (86) 90 03/17/20 07:15 67 17 134/60 (84) 97 03/17/20 07:10 74 29 100 03/17/20 07:00 70 19 132/66 (88) 92 03/17/20 07:00 134/60 03/17/20 07:00 134/60 03/17/20 07:00 16 134/60 Mechanical Ventilator 100 03/17/20 07:00 19 Mechanical Ventilator 100 03/17/20 06:45 69 20 125/67 (86) 90 03/17/20 06:30 70 22 123/56 (78) 91 03/17/20 06:15 99.8 71 19 127/73 (91) 89 03/17/20 06:00 72 19 119/60 (79) 92 03/17/20 06:00 119/60 03/17/20 06:00 119/60 03/17/20 06:00 19 119/60 Mechanical Ventilator 100 03/17/20 06:00 19 Mechanical Ventilator 100 03/17/20 05:45 75 20 123/68 (86) 92 03/17/20 05:30 71 20 128/72 (90) 90 03/17/20 05:15 75 23 122/63 (82) 89 03/17/20 05:00 127/65 03/17/20 05:00 127/65 03/17/20 05:00 19 127/65 Mechanical Ventilator 100 03/17/20 05:00 19 Mechanical Ventilator 100 03/17/20 05:00 71 23 127/65 (85) 88 03/17/20 04:45 70 24 138/75 (96) 94 03/17/20 04:41 71 27 100 03/17/20 04:30 70 18 137/73 (94) 91 03/17/20 04:15 69 22 139/76 (97) 92 03/17/20 04:00 100 03/17/20 04:00 Mechanical Ventilator 03/17/20 04:00 139/76 03/17/20 04:00 139/76 03/17/20 04:00 19 139/76 Mechanical Ventilator 100 03/17/20 04:00 20 Mechanical Ventilator 100 03/17/20 04:00 100.1 70 24 132/64 (86) 92 03/17/20 03:45 69 18 123/70 (87) 88 03/17/20 03:30 82 23 100/57 (71) 89 03/17/20 03:30 137/68 03/17/20 03:15 70 22 137/68 (91) 90 03/17/20 03:01 70 03/17/20 03:00 70 23 136/70 (92) 91 03/17/20 03:00 137/68 03/17/20 03:00 137/68 03/17/20 03:00 26 136/70 Mechanical Ventilator 100 03/17/20 03:00 21 Mechanical Ventilator 100 03/17/20 02:45 66 19 137/68 (91) 91 03/17/20 02:32 26 114/65 Mechanical Ventilator 100 03/17/20 02:30 66 22 124/64 (84) 90 03/17/20 02:30 124/64 03/17/20 02:30 124/64 Micro: Microbiology Date/Time Source Procedure Growth Status 03/16/20 20:50 Sputum Gram Stain - Final Resulted 03/16/20 20:50 Sputum Sputum Culture Pending Resulted Accucheck: 190 Critical Care - Subjective ROS Limited/Unobtainable: No Condition: critical FI02: 100 Vent Support Breath Rate: 26 Vent Support Mode: AC Vent Tidal Volume: 400 Sputum Amount: Small PEEP: 14.0 PIP: 30 Tube Feeding Amount: 15 I&O: Intake and Output 03/17/20 03/18/20 19:00 07:00 Intake Total 2662.9405 ml 951.032 ml Output Total 925 ml 900 ml Balance 1737.9405 ml 51.032 ml IV Total 2492.9405 ml 881.032 ml Tube Feeding 120 ml 70 ml Other 50 ml Output Urine Total 925 ml 900 ml ET-Tube: 7.5 ET Position: 21 Doron Carrillo MD March 18, 2020 02:30
[2020-03-18] MEDS: fentaNYL Citrate 2,500 MCG in NS 200 ML IV SCH (03:03)
[2020-03-18] MEDS: DOPamine 400mg/250ml 250 ML IV SCH ×2 (04:36→13:50)
[2020-03-18] MEDS: propofoL 1,000mg/100ml 100 ML IV SCH ×3 (04:37→20:30)
[2020-03-18] MEDS: Metoclopramide 10mg/2ml Inj IVP SCH ×4 (04:37→22:12)
[2020-03-18] MEDS: Meropenem 1 GM in NS 55 ML IVPB SCH ×3 (05:41→22:12)
[2020-03-18 07:29] LABS: HEMATOCRIT 30.2 % (37.0-47.0); HEMOGLOBIN 10.2 G/DL (12.0-16.0); MEAN CORPUSCULAR VOLUME 99 FL (80-99); PLATELET COUNT 87 K/UL (150-450); RED BLOOD COUNT 3.06 M/UL (4.20-5.40); RED CELL DISTRIBUTION WIDTH 17.4 % (11.6-14.8); WHITE BLOOD COUNT 10.8 K/UL (4.8-10.8)
--- NOTE | 2020-03-18 07:30 | General Progress Note ---
Assessment/Plan Status: progressing, unchanged Assessment/Plan: macrocytic anemia elevated LFTS cirrhosis cellulitis elevated Ammonia levels respiratory distress>>> now failure COVID positive pna NGTF reglan abd us>> reviewed lactulose and Xifaxan fu stool ob>>>neg s/p one unit PRBC in this admission GI procedures if needed abx per id hepatitis panel>>>>>positive for hep C>>> needs out patient fu poor prognosis will fu Subjective ROS Limited/Unobtainable: No Allergies: Coded Allergies: No Known Allergies (Unverified , 02/29/20) Objective Last 24 Hour Vital Signs Date Time Temp Pulse Resp B/P (MAP) Pulse Ox O2 Delivery O2 Flow Rate FiO2 03/18/20 07:15 68 45 129/68 (88) 95 03/18/20 07:00 66 32 130/69 (89) 96 03/18/20 07:00 129/68 03/18/20 07:00 129/68 03/18/20 06:37 35 125/64 Mechanical Ventilator 100 03/18/20 06:00 132/69 03/18/20 06:00 132/69 03/18/20 06:00 67 48 132/69 (90) 97 03/18/20 05:45 65 30 137/75 (95) 98 03/18/20 05:37 25 127/70 Mechanical Ventilator 100 03/18/20 05:30 65 26 127/70 (89) 97 03/18/20 05:15 66 24 129/70 (89) 97 03/18/20 05:00 125/66 03/18/20 05:00 123/66 03/18/20 05:00 65 23 123/66 (85) 97 03/18/20 04:45 72 22 122/65 (84) 98 03/18/20 04:39 68 26 100 03/18/20 04:37 26 114/56 Mechanical Ventilator 100 03/18/20 04:36 114/56 03/18/20 04:30 85 32 114/56 (75) 88 03/18/20 04:26 84 39 116/64 (81) 84 03/18/20 04:15 66 61 139/80 (99) 93 03/18/20 04:00 98.4 84 28 89/50 (63) 83 03/18/20 04:00 100 03/18/20 04:00 89/50 03/18/20 04:00 Mechanical Ventilator 03/18/20 03:45 64 27 91/51 (64) 96 03/18/20 03:30 68 28 87/50 (62) 96 03/18/20 03:30 87/50 03/18/20 03:20 69 26 100 03/18/20 03:15 66 26 125/63 (83) 97 03/18/20 03:10 26 135/69 Mechanical Ventilator 100 03/18/20 03:03 26 Mechanical Ventilator 100 03/18/20 03:01 66 03/18/20 03:00 66 26 135/69 (91) 97 03/18/20 03:00 135/69 03/18/20 02:45 66 26 135/67 (89) 97 03/18/20 02:30 65 26 135/66 (89) 97 03/18/20 02:15 65 26 135/66 (89) 97 03/18/20 02:10 26 134/67 Mechanical Ventilator 100 03/18/20 02:00 66 26 134/67 (89) 97 03/18/20 02:00 134/67 03/18/20 01:45 67 26 142/69 (93) 96 03/18/20 01:45 142/69 03/18/20 01:30 67 26 142/68 (92) 96 03/18/20 01:15 67 26 141/68 (92) 96 03/18/20 01:15 26 Mechanical Ventilator 100 03/18/20 01:10 26 141/69 Mechanical Ventilator 100 03/18/20 01:00 68 26 141/69 (93) 96 03/18/20 01:00 141/69 03/18/20 01:00 141/69 03/18/20 01:00 26 Mechanical Ventilator 100 03/18/20 00:45 69 26 142/69 (93) 96 03/18/20 00:35 68 27 100 03/18/20 00:30 68 26 143/69 (93) 96 03/18/20 00:15 68 26 143/69 (93) 96 03/18/20 00:10 26 146/72 Mechanical Ventilator 100 03/18/20 00:10 26 146/72 Mechanical Ventilator 100 03/18/20 00:00 Mechanical Ventilator 03/18/20 00:00 97.8 68 28 146/72 (96) 96 03/18/20 00:00 146/72 03/18/20 00:00 146/72 03/18/20 00:00 26 Mechanical Ventilator 100 03/17/20 23:45 69 26 146/70 (95) 96 03/17/20 23:30 69 26 145/70 (95) 96 03/17/20 23:18 68 03/17/20 23:15 69 27 147/70 (95) 96 03/17/20 23:15 69 28 100 03/17/20 23:10 27 147/70 Mechanical Ventilator 100 03/17/20 23:00 147/70 03/17/20 23:00 147/70 03/17/20 23:00 27 Mechanical Ventilator 100 03/17/20 23:00 69 27 147/70 (95) 96 03/17/20 22:45 69 26 145/70 (95) 96 03/17/20 22:30 69 27 146/70 (95) 96 03/17/20 22:15 72 26 149/71 (97) 96 03/17/20 22:10 26 159/77 Mechanical Ventilator 100 03/17/20 22:00 78 26 159/77 (104) 96 03/17/20 22:00 159/77 03/17/20 22:00 159/77 03/17/20 22:00 26 Mechanical Ventilator 100 03/17/20 21:45 74 35 148/72 (97) 96 03/17/20 21:30 63 31 136/68 (90) 96 03/17/20 21:15 68 26 124/60 (81) 93 03/17/20 21:10 24 150/70 Mechanical Ventilator 100 03/17/20 21:00 69 21 150/70 (96) 94 03/17/20 21:00 150/70 03/17/20 21:00 136/68 03/17/20 21:00 150/70 03/17/20 21:00 24 Mechanical Ventilator 100 03/17/20 20:45 69 23 152/71 (98) 94 03/17/20 20:44 67 26 100 03/17/20 20:30 68 22 152/70 (97) 94 03/17/20 20:15 68 21 148/72 (97) 94 03/17/20 20:10 22 152/69 Mechanical Ventilator 100 03/17/20 20:00 100 03/17/20 20:00 152/74 03/17/20 20:00 152/74 03/17/20 20:00 22 Mechanical Ventilator 100 03/17/20 20:00 Mechanical Ventilator 03/17/20 20:00 98.2 69 22 152/74 (100) 93 03/17/20 19:45 69 22 149/72 (97) 93 03/17/20 19:30 70 22 147/72 (97) 93 03/17/20 19:15 68 23 155/77 (103) 92 03/17/20 19:11 61 03/17/20 19:10 21 152/69 Mechanical Ventilator 100 03/17/20 19:00 66 22 152/69 (96) 94 03/17/20 19:00 152/69 03/17/20 19:00 152/69 03/17/20 19:00 152/69 03/17/20 19:00 30 152/69 Mechanical Ventilator 100 03/17/20 19:00 30 Mechanical Ventilator 100 03/17/20 18:45 68 29 100 03/17/20 18:30 30 Mechanical Ventilator 100 03/17/20 18:00 69 22 130/66 (87) 93 03/17/20 18:00 130/66 03/17/20 18:00 30 130/66 Mechanical Ventilator 100 03/17/20 18:00 30 Mechanical Ventilator 100 03/17/20 17:54 134/63 03/17/20 17:50 130/66 03/17/20 17:45 72 21 134/63 (86) 91 03/17/20 17:30 68 24 138/67 (90) 94 03/17/20 17:30 138/67 03/17/20 17:29 138/67 03/17/20 17:15 70 24 113/58 (76) 93 03/17/20 17:00 68 20 141/69 (93) 93 03/17/20 17:00 141/69 03/17/20 17:00 141/69 03/17/20 17:00 30 141/69 Mechanical Ventilator 100 03/17/20 17:00 30 Mechanical Ventilator 100 03/17/20 16:45 68 16 139/66 (90) 93 03/17/20 16:40 67 30 100 03/17/20 16:30 68 18 138/66 (90) 93 03/17/20 16:15 70 17 135/62 (86) 93 03/17/20 16:00 100 03/17/20 16:00 98.2 68 25 131/69 (89) 91 03/17/20 16:00 131/69 03/17/20 16:00 131/69 03/17/20 16:00 30 131/69 Mechanical Ventilator 100 03/17/20 16:00 30 Mechanical Ventilator 100 03/17/20 16:00 91 03/17/20 16:00 Mechanical Ventilator 03/17/20 15:45 66 31 133/63 (86) 92 03/17/20 15:30 66 24 133/67 (89) 92 03/17/20 15:15 65 27 120/62 (81) 92 03/17/20 15:01 107/57 03/17/20 15:01 107/57 03/17/20 15:01 29 107/57 Mechanical Ventilator 100 03/17/20 15:01 30 Mechanical Ventilator 100 03/17/20 15:00 68 31 107/57 (74) 92 03/17/20 14:58 66 29 100 03/17/20 14:45 80 26 105/52 (69) 90 03/17/20 14:30 89 26 109/58 (75) 91 03/17/20 14:15 72 18 124/72 (89) 95 03/17/20 14:00 127/69 03/17/20 14:00 127/69 03/17/20 14:00 30 127/69 Mechanical Ventilator 100 03/17/20 14:00 30 Non-Rebreather 100 03/17/20 14:00 70 11 127/69 (88) 96 03/17/20 13:45 69 16 130/70 (90) 96 03/17/20 13:42 122/62 03/17/20 13:42 122/62 03/17/20 13:30 73 15 122/62 (82) 96 03/17/20 13:15 81 17 124/57 (79) 98 03/17/20 13:00 118/62 03/17/20 13:00 118/62 03/17/20 13:00 31 118/62 Mechanical Ventilator 100 03/17/20 13:00 30 Mechanical Ventilator 100 03/17/20 13:00 65 14 118/62 (80) 95 03/17/20 12:59 66 29 100 03/17/20 12:45 66 14 117/64 (81) 96 03/17/20 12:30 67 18 118/66 (83) 96 03/17/20 12:15 82 16 110/64 (79) 93 03/17/20 12:00 100 03/17/20 12:00 98.9 69 19 107/58 (74) 90 03/17/20 12:00 107/58 03/17/20 12:00 118/66 03/17/20 12:00 31 107/58 Mechanical Ventilator 100 03/17/20 12:00 35 Mechanical Ventilator 100 03/17/20 12:00 Mechanical Ventilator 03/17/20 12:00 83 03/17/20 11:45 69 14 96/51 (66) 91 03/17/20 11:37 98.9 03/17/20 11:30 78 16 105/57 (73) 85 03/17/20 11:15 72 12 104/66 (79) 96 03/17/20 11:04 31 104/61 Mechanical Ventilator 100 03/17/20 11:00 104/61 03/17/20 11:00 104/61 03/17/20 11:00 30 104/61 Mechanical Ventilator 100 03/17/20 11:00 30 Mechanical Ventilator 100 03/17/20 11:00 73 16 104/61 (75) 94 03/17/20 10:58 68 29 100 03/17/20 10:45 100.5 67 17 113/62 (79) 91 03/17/20 10:30 67 18 105/58 (74) 95 03/17/20 10:15 67 20 117/64 (81) 92 03/17/20 10:00 113/63 03/17/20 10:00 113/63 03/17/20 10:00 31 113/63 Mechanical Ventilator 100 03/17/20 10:00 30 Mechanical Ventilator 100 03/17/20 10:00 71 20 113/63 (80) 94 03/17/20 09:45 80 19 109/62 (78) 94 03/17/20 09:30 121/65 03/17/20 09:30 73 18 121/65 (83) 98 03/17/20 09:15 80 17 128/74 (92) 97 03/17/20 09:07 83 30 100 03/17/20 09:00 87 15 137/56 (83) 89 03/17/20 09:00 137/56 03/17/20 09:00 137/56 03/17/20 09:00 31 137/56 Mechanical Ventilator 100 03/17/20 09:00 31 Mechanical Ventilator 100 03/17/20 08:47 62/39 03/17/20 08:45 66 16 125/72 (89) 87 03/17/20 08:45 137/56 03/17/20 08:42 63/39 03/17/20 08:40 118/56 03/17/20 08:30 69 17 82/49 (60) 88 03/17/20 08:30 31 118/56 Mechanical Ventilator 100 03/17/20 08:15 68 16 118/56 (76) 88 03/17/20 08:00 100 03/17/20 08:00 Mechanical Ventilator 03/17/20 08:00 100.2 68 23 130/62 (84) 89 03/17/20 08:00 130/62 03/17/20 08:00 130/62 03/17/20 08:00 22 130/62 Mechanical Ventilator 100 03/17/20 08:00 31 Mechanical Ventilator 100 03/17/20 08:00 68 03/17/20 07:45 68 19 137/63 (87) 89 03/17/20 07:30 67 24 130/65 (86) 90 Intake and Output 03/17/20 03/18/20 19:00 07:00 Intake Total 2662.9405 ml 1759.7103 ml Output Total 925 ml 1110 ml Balance 1737.9405 ml 649.7103 ml IV Total 2492.9405 ml 1589.7103 ml Tube Feeding 120 ml 170 ml Other 50 ml Output Urine Total 925 ml 1110 ml Laboratory Tests 03/17/20 09:00: White Blood Count 13.0H, Red Blood Count 3.23L, Hemoglobin 10.6L, Hematocrit 32.1L, Mean Corpuscular Volume 100H, Mean Corpuscular Hemoglobin 33.0H, Mean Corpuscular Hemoglobin Concent 33.1, Red Cell Distribution Width 16.8H, Platelet Count 103L, Mean Platelet Volume 6.8, Neutrophils (%) (Auto) 76.4H, Lymphocytes (%) (Auto) 11.7L, Monocytes (%) (Auto) 6.4, Eosinophils (%) (Auto) 4.7H, Basophils (%) (Auto) 0.8, Sodium Level 126L, Potassium Level 3.6, Chloride Level 93L, Carbon Dioxide Level 30, Anion Gap 3L, Blood Urea Nitrogen 9 , Creatinine 0.8, Estimat Glomerular Filtration Rate > 60, Glucose Level 150H, Calcium Level 7.2L, Magnesium Level 1.7L, Total Bilirubin 1.7H, Direct Bilirubin 0.9H, Aspartate Amino Transf (AST/SGOT) 73H, Alanine Aminotransferase (ALT/SGPT) 19, Alkaline Phosphatase 116, Total Protein 8.2, Albumin 1.6L, Globulin 6.6, Albumin/Globulin Ratio 0.2L, Thyroid Stimulating Hormone (TSH) 14.208H, Cortisol [Pending] 03/18/20 06:50: White Blood Count [Pending], Red Blood Count [Pending], Hemoglobin [Pending], Hematocrit [Pending], Mean Corpuscular Volume [Pending], Mean Corpuscular Hemoglobin [Pending], Mean Corpuscular Hemoglobin Concent [Pending], Red Cell Distribution Width [Pending], Platelet Count [Pending], Mean Platelet Volume [ Pending], Neutrophils (%) (Auto) [Pending], Lymphocytes (%) (Auto) [Pending], Monocytes (%) (Auto) [Pending], Eosinophils (%) (Auto) [Pending], Basophils (%) (Auto) [Pending], Sodium Level [Pending], Potassium Level [Pending], Chloride Level [Pending], Carbon Dioxide Level [Pending], Blood Urea Nitrogen [Pending], Creatinine [Pending], Estimat Glomerular Filtration Rate [Pending], Glucose Level [Pending], Calcium Level [Pending], Triglycerides Level [Pending] Height (Feet): 5 Height (Inches): 1.00 Weight (Pounds): 238 General Appearance: lethargic EENT: normal ENT inspection Neck: supple Cardiovascular: tachycardia Respiratory/Chest: decreased breath sounds Abdomen: normal bowel sounds, non tender, soft Extremities: non-tender Tam Spicer MD March 18, 2020 07:30
[2020-03-18 07:47] LABS: ANION GAP 4 mmol/L (5-15); BLOOD UREA NITROGEN 9 mg/dL (7-18); CALCIUM 7.7 MG/DL (8.5-10.1); CARBON DIOXIDE 30 MMOL/L (21-32); CHLORIDE 89 MMOL/L (98-107); CREATININE 0.7 MG/DL (0.55-1.30); POTASSIUM 4.1 MMOL/L (3.5-5.1); SODIUM 123 MMOL/L (136-145); TRIGLYCERIDES 80 MG/DL (30-150)
[2020-03-18] MEDS: Enoxaparin 40mg Inj SUBQ SCH (09:00)
[2020-03-18] MEDS: Azithromycin 250mg tab ORAL SCH (09:08)
[2020-03-18] MEDS: Solu-MEDROL 125mg Inj IVP SCH ×2 (09:09→20:30)
--- NOTE | 2020-03-18 10:26 | Surgery Progress Note ---
Surgery Progress Note Subjective Additional Comments Na worse peep 14 fio2 100 levo vaso ill appearing Objective Last 24 Hour Vital Signs Date Time Temp Pulse Resp B/P (MAP) Pulse Ox O2 Delivery O2 Flow Rate FiO2 03/18/20 09:12 97 26 100 03/18/20 07:15 68 45 129/68 (88) 95 03/18/20 07:10 67 26 100 03/18/20 07:00 66 32 130/69 (89) 96 03/18/20 07:00 129/68 03/18/20 07:00 129/68 03/18/20 06:37 35 125/64 Mechanical Ventilator 100 03/18/20 06:00 132/69 03/18/20 06:00 132/69 03/18/20 06:00 67 48 132/69 (90) 97 03/18/20 05:45 65 30 137/75 (95) 98 03/18/20 05:37 25 127/70 Mechanical Ventilator 100 03/18/20 05:30 65 26 127/70 (89) 97 03/18/20 05:15 66 24 129/70 (89) 97 03/18/20 05:00 125/66 03/18/20 05:00 123/66 03/18/20 05:00 65 23 123/66 (85) 97 03/18/20 04:45 72 22 122/65 (84) 98 03/18/20 04:39 68 26 100 03/18/20 04:37 26 114/56 Mechanical Ventilator 100 03/18/20 04:36 114/56 03/18/20 04:30 85 32 114/56 (75) 88 03/18/20 04:26 84 39 116/64 (81) 84 03/18/20 04:15 66 61 139/80 (99) 93 03/18/20 04:00 98.4 84 28 89/50 (63) 83 03/18/20 04:00 100 03/18/20 04:00 89/50 03/18/20 04:00 Mechanical Ventilator 03/18/20 03:45 64 27 91/51 (64) 96 03/18/20 03:30 68 28 87/50 (62) 96 03/18/20 03:30 87/50 03/18/20 03:20 69 26 100 03/18/20 03:15 66 26 125/63 (83) 97 03/18/20 03:10 26 135/69 Mechanical Ventilator 100 03/18/20 03:03 26 Mechanical Ventilator 100 03/18/20 03:01 66 03/18/20 03:00 66 26 135/69 (91) 97 03/18/20 03:00 135/69 03/18/20 02:45 66 26 135/67 (89) 97 03/18/20 02:30 65 26 135/66 (89) 97 03/18/20 02:15 65 26 135/66 (89) 97 03/18/20 02:10 26 134/67 Mechanical Ventilator 100 03/18/20 02:00 66 26 134/67 (89) 97 03/18/20 02:00 134/67 03/18/20 01:45 67 26 142/69 (93) 96 03/18/20 01:45 142/69 03/18/20 01:30 67 26 142/68 (92) 96 03/18/20 01:15 67 26 141/68 (92) 96 03/18/20 01:15 26 Mechanical Ventilator 100 03/18/20 01:10 26 141/69 Mechanical Ventilator 100 03/18/20 01:00 68 26 141/69 (93) 96 03/18/20 01:00 141/69 03/18/20 01:00 141/69 03/18/20 01:00 26 Mechanical Ventilator 100 03/18/20 00:45 69 26 142/69 (93) 96 03/18/20 00:35 68 27 100 03/18/20 00:30 68 26 143/69 (93) 96 03/18/20 00:15 68 26 143/69 (93) 96 03/18/20 00:10 26 146/72 Mechanical Ventilator 100 03/18/20 00:10 26 146/72 Mechanical Ventilator 100 03/18/20 00:00 Mechanical Ventilator 03/18/20 00:00 97.8 68 28 146/72 (96) 96 03/18/20 00:00 146/72 03/18/20 00:00 146/72 03/18/20 00:00 26 Mechanical Ventilator 100 03/17/20 23:45 69 26 146/70 (95) 96 03/17/20 23:30 69 26 145/70 (95) 96 03/17/20 23:18 68 03/17/20 23:15 69 27 147/70 (95) 96 03/17/20 23:15 69 28 100 03/17/20 23:10 27 147/70 Mechanical Ventilator 100 03/17/20 23:00 147/70 03/17/20 23:00 147/70 03/17/20 23:00 27 Mechanical Ventilator 100 03/17/20 23:00 69 27 147/70 (95) 96 03/17/20 22:45 69 26 145/70 (95) 96 03/17/20 22:30 69 27 146/70 (95) 96 03/17/20 22:15 72 26 149/71 (97) 96 03/17/20 22:10 26 159/77 Mechanical Ventilator 100 03/17/20 22:00 78 26 159/77 (104) 96 03/17/20 22:00 159/77 03/17/20 22:00 159/77 03/17/20 22:00 26 Mechanical Ventilator 100 03/17/20 21:45 74 35 148/72 (97) 96 03/17/20 21:30 63 31 136/68 (90) 96 03/17/20 21:15 68 26 124/60 (81) 93 03/17/20 21:10 24 150/70 Mechanical Ventilator 100 03/17/20 21:00 69 21 150/70 (96) 94 03/17/20 21:00 150/70 03/17/20 21:00 136/68 03/17/20 21:00 150/70 03/17/20 21:00 24 Mechanical Ventilator 100 03/17/20 20:45 69 23 152/71 (98) 94 03/17/20 20:44 67 26 100 03/17/20 20:30 68 22 152/70 (97) 94 03/17/20 20:15 68 21 148/72 (97) 94 03/17/20 20:10 22 152/69 Mechanical Ventilator 100 03/17/20 20:00 100 03/17/20 20:00 152/74 03/17/20 20:00 152/74 03/17/20 20:00 22 Mechanical Ventilator 100 03/17/20 20:00 Mechanical Ventilator 03/17/20 20:00 98.2 69 22 152/74 (100) 93 03/17/20 19:45 69 22 149/72 (97) 93 03/17/20 19:30 70 22 147/72 (97) 93 03/17/20 19:15 68 23 155/77 (103) 92 03/17/20 19:11 61 03/17/20 19:10 21 152/69 Mechanical Ventilator 100 03/17/20 19:00 66 22 152/69 (96) 94 03/17/20 19:00 152/69 03/17/20 19:00 152/69 03/17/20 19:00 152/69 03/17/20 19:00 30 152/69 Mechanical Ventilator 100 03/17/20 19:00 30 Mechanical Ventilator 100 03/17/20 18:45 68 29 100 03/17/20 18:30 30 Mechanical Ventilator 100 03/17/20 18:00 69 22 130/66 (87) 93 03/17/20 18:00 130/66 03/17/20 18:00 30 130/66 Mechanical Ventilator 100 03/17/20 18:00 30 Mechanical Ventilator 100 03/17/20 17:54 134/63 03/17/20 17:50 130/66 03/17/20 17:45 72 21 134/63 (86) 91 03/17/20 17:30 68 24 138/67 (90) 94 03/17/20 17:30 138/67 03/17/20 17:29 138/67 03/17/20 17:15 70 24 113/58 (76) 93 03/17/20 17:00 68 20 141/69 (93) 93 03/17/20 17:00 141/69 03/17/20 17:00 141/69 03/17/20 17:00 30 141/69 Mechanical Ventilator 100 03/17/20 17:00 30 Mechanical Ventilator 100 03/17/20 16:45 68 16 139/66 (90) 93 03/17/20 16:40 67 30 100 03/17/20 16:30 68 18 138/66 (90) 93 03/17/20 16:15 70 17 135/62 (86) 93 03/17/20 16:00 100 03/17/20 16:00 98.2 68 25 131/69 (89) 91 03/17/20 16:00 131/69 03/17/20 16:00 131/69 03/17/20 16:00 30 131/69 Mechanical Ventilator 100 03/17/20 16:00 30 Mechanical Ventilator 100 03/17/20 16:00 91 03/17/20 16:00 Mechanical Ventilator 03/17/20 15:45 66 31 133/63 (86) 92 03/17/20 15:30 66 24 133/67 (89) 92 03/17/20 15:15 65 27 120/62 (81) 92 03/17/20 15:01 107/57 03/17/20 15:01 107/57 03/17/20 15:01 29 107/57 Mechanical Ventilator 100 03/17/20 15:01 30 Mechanical Ventilator 100 03/17/20 15:00 68 31 107/57 (74) 92 03/17/20 14:58 66 29 100 03/17/20 14:45 80 26 105/52 (69) 90 03/17/20 14:30 89 26 109/58 (75) 91 03/17/20 14:15 72 18 124/72 (89) 95 03/17/20 14:00 127/69 03/17/20 14:00 127/69 03/17/20 14:00 30 127/69 Mechanical Ventilator 100 03/17/20 14:00 30 Non-Rebreather 100 03/17/20 14:00 70 11 127/69 (88) 96 03/17/20 13:45 69 16 130/70 (90) 96 03/17/20 13:42 122/62 03/17/20 13:42 122/62 03/17/20 13:30 73 15 122/62 (82) 96 03/17/20 13:15 81 17 124/57 (79) 98 03/17/20 13:00 118/62 03/17/20 13:00 118/62 03/17/20 13:00 31 118/62 Mechanical Ventilator 100 03/17/20 13:00 30 Mechanical Ventilator 100 03/17/20 13:00 65 14 118/62 (80) 95 03/17/20 12:59 66 29 100 03/17/20 12:45 66 14 117/64 (81) 96 03/17/20 12:30 67 18 118/66 (83) 96 03/17/20 12:15 82 16 110/64 (79) 93 03/17/20 12:00 100 03/17/20 12:00 98.9 69 19 107/58 (74) 90 03/17/20 12:00 107/58 03/17/20 12:00 118/66 03/17/20 12:00 31 107/58 Mechanical Ventilator 100 03/17/20 12:00 35 Mechanical Ventilator 100 03/17/20 12:00 Mechanical Ventilator 03/17/20 12:00 83 03/17/20 11:45 69 14 96/51 (66) 91 03/17/20 11:37 98.9 03/17/20 11:30 78 16 105/57 (73) 85 03/17/20 11:15 72 12 104/66 (79) 96 03/17/20 11:04 31 104/61 Mechanical Ventilator 100 03/17/20 11:00 104/61 03/17/20 11:00 104/61 03/17/20 11:00 30 104/61 Mechanical Ventilator 100 03/17/20 11:00 30 Mechanical Ventilator 100 03/17/20 11:00 73 16 104/61 (75) 94 03/17/20 10:58 68 29 100 03/17/20 10:45 100.5 67 17 113/62 (79) 91 03/17/20 10:30 67 18 105/58 (74) 95 I&O Intake and Output 03/17/20 03/18/20 19:00 07:00 Intake Total 2662.9405 ml 1759.7103 ml Output Total 925 ml 1110 ml Balance 1737.9405 ml 649.7103 ml IV Total 2492.9405 ml 1589.7103 ml Tube Feeding 120 ml 170 ml Other 50 ml Output Urine Total 925 ml 1110 ml Dressing: dry Cardiovascular: RSR Respiratory: decreased breath sounds Abdomen: soft, non-tender, non-distended Extremities: edema, no tenderness, no cyanosis Laboratory Tests Test 03/18/20 06:50 White Blood Count 10.8 K/UL (4.8-10.8) Red Blood Count 3.06 M/UL (4.20-5.40) L Hemoglobin 10.2 G/DL (12.0-16.0) L Hematocrit 30.2 % (37.0-47.0) L Mean Corpuscular Volume 99 FL (80-99) Mean Corpuscular Hemoglobin 33.2 PG (27.0-31.0) H Mean Corpuscular Hemoglobin Concent 33.6 G/DL (32.0-36.0) Red Cell Distribution Width 17.4 % (11.6-14.8) H Platelet Count 87 K/UL (150-450) L Mean Platelet Volume 8.5 FL (6.5-10.1) Neutrophils (%) (Auto) % (45.0-75.0) Lymphocytes (%) (Auto) % (20.0-45.0) Monocytes (%) (Auto) % (1.0-10.0) Eosinophils (%) (Auto) % (0.0-3.0) Basophils (%) (Auto) % (0.0-2.0) Neutrophils % (Manual) Pending Lymphocytes % (Manual) Pending Platelet Estimate Pending Platelet Morphology Pending Sodium Level 123 MMOL/L (136-145) L Potassium Level 4.1 MMOL/L (3.5-5.1) Chloride Level 89 MMOL/L (98-107) L Carbon Dioxide Level 30 MMOL/L (21-32) Anion Gap 4 mmol/L (5-15) L Blood Urea Nitrogen 9 mg/dL (7-18) Creatinine 0.7 MG/DL (0.55-1.30) Estimat Glomerular Filtration Rate > 60 mL/min (>60) Glucose Level 176 MG/DL (74-106) H Calcium Level 7.7 MG/DL (8.5-10.1) L Triglycerides Level 80 MG/DL (30-150) Plan Problems: (1) Cellulitis Assessment & Plan: bilateral lower extremity cellulitis / edema chronic venous status changes dermatitis no abscess no purulent drainage ulcerations forming. keep lower extremity elevated while in bed apply skin protectant / moisturizing cream daily okay to shower okay to wrap soft after cream abx as per ID for cellulitis okay for diet duplex ordered trend labs will follow with recs thank you No evidence of deep venous thrombosis involving the visualized veins of the RIGHT lower extremity. refused eval of left COVID ++ cxr noted cont current supportive care improving labs stable improving slowly wean pressors as tolerated Patient is acutely worsened intubated on vent support 2 pressors now worsening labs worsening Prognosis is guarded we will continue with maximal support efforts (2) COVID-19 Assessment & Plan: see above Theron Sotomayor March 18, 2020 10:26
--- NOTE | 2020-03-18 11:44 | Cardiology Progress Note ---
Assessment/Plan Assessment/Plan 1. Acute respiratory failure with hypoxic hypercapnea due to bilateral PNA caused by COVID-19 infection, pulmonary and ID f/u. 2. Septic shock on dopamine and levophed gtt, keep MAP at 65 mmHg and above. 3. Hyponatremia, DC IV fluid. Continue lasix given CXR findings of pulmonary edema. 4. Bilateral lower extremity cellulitis with Pseudomonas aeruginosa in culture. 5. Pancytopenia, most likely due to hepatitis C virus infection/liver cirrhosis. Subjective Subjective Sinus rhythm at rate of 78. On levophed and dopamine gtt as well as IVF. Intubated. Objective Last 24 Hour Vital Signs Date Time Temp Pulse Resp B/P (MAP) Pulse Ox O2 Delivery O2 Flow Rate FiO2 03/18/20 11:12 30 129/84 Mechanical Ventilator 100 03/18/20 10:00 67 34 125/60 (81) 96 03/18/20 10:00 125/60 03/18/20 10:00 30 125/60 Mechanical Ventilator 100 03/18/20 10:00 125/60 03/18/20 09:30 67 41 132/66 (88) 97 03/18/20 09:12 97 26 100 03/18/20 09:00 66 50 130/66 (87) 97 03/18/20 09:00 130/66 03/18/20 09:00 30 130/66 Mechanical Ventilator 100 03/18/20 09:00 130/66 03/18/20 08:30 67 50 132/65 (87) 96 03/18/20 08:00 100 03/18/20 08:00 129/69 03/18/20 08:00 30 129/69 Mechanical Ventilator 100 03/18/20 08:00 129/69 03/18/20 08:00 98.4 66 38 132/69 (90) 97 03/18/20 08:00 Mechanical Ventilator 03/18/20 08:00 68 03/18/20 07:15 68 45 129/68 (88) 95 03/18/20 07:10 67 26 100 03/18/20 07:00 66 32 130/69 (89) 96 03/18/20 07:00 129/68 03/18/20 07:00 129/68 03/18/20 06:37 35 125/64 Mechanical Ventilator 100 03/18/20 06:00 132/69 03/18/20 06:00 132/69 03/18/20 06:00 67 48 132/69 (90) 97 03/18/20 05:45 65 30 137/75 (95) 98 03/18/20 05:37 25 127/70 Mechanical Ventilator 100 03/18/20 05:30 65 26 127/70 (89) 97 03/18/20 05:15 66 24 129/70 (89) 97 03/18/20 05:00 125/66 03/18/20 05:00 123/66 03/18/20 05:00 65 23 123/66 (85) 97 03/18/20 04:45 72 22 122/65 (84) 98 03/18/20 04:39 68 26 100 03/18/20 04:37 26 114/56 Mechanical Ventilator 100 03/18/20 04:36 114/56 03/18/20 04:30 85 32 114/56 (75) 88 03/18/20 04:26 84 39 116/64 (81) 84 03/18/20 04:15 66 61 139/80 (99) 93 03/18/20 04:00 98.4 84 28 89/50 (63) 83 03/18/20 04:00 100 03/18/20 04:00 89/50 03/18/20 04:00 Mechanical Ventilator 03/18/20 03:45 64 27 91/51 (64) 96 03/18/20 03:30 68 28 87/50 (62) 96 03/18/20 03:30 87/50 03/18/20 03:20 69 26 100 03/18/20 03:15 66 26 125/63 (83) 97 03/18/20 03:10 26 135/69 Mechanical Ventilator 100 03/18/20 03:03 26 Mechanical Ventilator 100 03/18/20 03:01 66 03/18/20 03:00 66 26 135/69 (91) 97 03/18/20 03:00 135/69 03/18/20 02:45 66 26 135/67 (89) 97 03/18/20 02:30 65 26 135/66 (89) 97 03/18/20 02:15 65 26 135/66 (89) 97 03/18/20 02:10 26 134/67 Mechanical Ventilator 100 03/18/20 02:00 66 26 134/67 (89) 97 03/18/20 02:00 134/67 03/18/20 01:45 67 26 142/69 (93) 96 03/18/20 01:45 142/69 03/18/20 01:30 67 26 142/68 (92) 96 03/18/20 01:15 67 26 141/68 (92) 96 03/18/20 01:15 26 Mechanical Ventilator 100 03/18/20 01:10 26 141/69 Mechanical Ventilator 100 03/18/20 01:00 68 26 141/69 (93) 96 03/18/20 01:00 141/69 03/18/20 01:00 141/69 03/18/20 01:00 26 Mechanical Ventilator 100 03/18/20 00:45 69 26 142/69 (93) 96 03/18/20 00:35 68 27 100 03/18/20 00:30 68 26 143/69 (93) 96 03/18/20 00:15 68 26 143/69 (93) 96 03/18/20 00:10 26 146/72 Mechanical Ventilator 100 03/18/20 00:10 26 146/72 Mechanical Ventilator 100 03/18/20 00:00 Mechanical Ventilator 03/18/20 00:00 97.8 68 28 146/72 (96) 96 03/18/20 00:00 146/72 03/18/20 00:00 146/72 03/18/20 00:00 26 Mechanical Ventilator 100 03/17/20 23:45 69 26 146/70 (95) 96 03/17/20 23:30 69 26 145/70 (95) 96 03/17/20 23:18 68 03/17/20 23:15 69 27 147/70 (95) 96 03/17/20 23:15 69 28 100 03/17/20 23:10 27 147/70 Mechanical Ventilator 100 03/17/20 23:00 147/70 03/17/20 23:00 147/70 03/17/20 23:00 27 Mechanical Ventilator 100 03/17/20 23:00 69 27 147/70 (95) 96 03/17/20 22:45 69 26 145/70 (95) 96 03/17/20 22:30 69 27 146/70 (95) 96 03/17/20 22:15 72 26 149/71 (97) 96 03/17/20 22:10 26 159/77 Mechanical Ventilator 100 03/17/20 22:00 78 26 159/77 (104) 96 03/17/20 22:00 159/77 03/17/20 22:00 159/77 03/17/20 22:00 26 Mechanical Ventilator 100 03/17/20 21:45 74 35 148/72 (97) 96 03/17/20 21:30 63 31 136/68 (90) 96 03/17/20 21:15 68 26 124/60 (81) 93 03/17/20 21:10 24 150/70 Mechanical Ventilator 100 03/17/20 21:00 69 21 150/70 (96) 94 03/17/20 21:00 150/70 03/17/20 21:00 136/68 03/17/20 21:00 150/70 03/17/20 21:00 24 Mechanical Ventilator 100 03/17/20 20:45 69 23 152/71 (98) 94 03/17/20 20:44 67 26 100 03/17/20 20:30 68 22 152/70 (97) 94 03/17/20 20:15 68 21 148/72 (97) 94 03/17/20 20:10 22 152/69 Mechanical Ventilator 100 03/17/20 20:00 100 03/17/20 20:00 152/74 03/17/20 20:00 152/74 03/17/20 20:00 22 Mechanical Ventilator 100 03/17/20 20:00 Mechanical Ventilator 03/17/20 20:00 98.2 69 22 152/74 (100) 93 03/17/20 19:45 69 22 149/72 (97) 93 03/17/20 19:30 70 22 147/72 (97) 93 03/17/20 19:15 68 23 155/77 (103) 92 03/17/20 19:11 61 03/17/20 19:10 21 152/69 Mechanical Ventilator 100 03/17/20 19:00 66 22 152/69 (96) 94 03/17/20 19:00 152/69 03/17/20 19:00 152/69 03/17/20 19:00 152/69 03/17/20 19:00 30 152/69 Mechanical Ventilator 100 03/17/20 19:00 30 Mechanical Ventilator 100 03/17/20 18:45 68 29 100 03/17/20 18:30 30 Mechanical Ventilator 100 03/17/20 18:00 69 22 130/66 (87) 93 03/17/20 18:00 130/66 03/17/20 18:00 30 130/66 Mechanical Ventilator 100 03/17/20 18:00 30 Mechanical Ventilator 100 03/17/20 17:54 134/63 03/17/20 17:50 130/66 03/17/20 17:45 72 21 134/63 (86) 91 03/17/20 17:30 68 24 138/67 (90) 94 03/17/20 17:30 138/67 03/17/20 17:29 138/67 03/17/20 17:15 70 24 113/58 (76) 93 03/17/20 17:00 68 20 141/69 (93) 93 03/17/20 17:00 141/69 03/17/20 17:00 141/69 03/17/20 17:00 30 141/69 Mechanical Ventilator 100 03/17/20 17:00 30 Mechanical Ventilator 100 03/17/20 16:45 68 16 139/66 (90) 93 03/17/20 16:40 67 30 100 03/17/20 16:30 68 18 138/66 (90) 93 03/17/20 16:15 70 17 135/62 (86) 93 03/17/20 16:00 100 03/17/20 16:00 98.2 68 25 131/69 (89) 91 03/17/20 16:00 131/69 03/17/20 16:00 131/69 03/17/20 16:00 30 131/69 Mechanical Ventilator 100 03/17/20 16:00 30 Mechanical Ventilator 100 03/17/20 16:00 91 03/17/20 16:00 Mechanical Ventilator 03/17/20 15:45 66 31 133/63 (86) 92 03/17/20 15:30 66 24 133/67 (89) 92 03/17/20 15:15 65 27 120/62 (81) 92 03/17/20 15:01 107/57 03/17/20 15:01 107/57 03/17/20 15:01 29 107/57 Mechanical Ventilator 100 03/17/20 15:01 30 Mechanical Ventilator 100 03/17/20 15:00 68 31 107/57 (74) 92 03/17/20 14:58 66 29 100 03/17/20 14:45 80 26 105/52 (69) 90 03/17/20 14:30 89 26 109/58 (75) 91 03/17/20 14:15 72 18 124/72 (89) 95 03/17/20 14:00 127/69 03/17/20 14:00 127/69 03/17/20 14:00 30 127/69 Mechanical Ventilator 100 03/17/20 14:00 30 Non-Rebreather 100 03/17/20 14:00 70 11 127/69 (88) 96 03/17/20 13:45 69 16 130/70 (90) 96 03/17/20 13:42 122/62 03/17/20 13:42 122/62 03/17/20 13:30 73 15 122/62 (82) 96 03/17/20 13:15 81 17 124/57 (79) 98 03/17/20 13:00 118/62 03/17/20 13:00 118/62 03/17/20 13:00 31 118/62 Mechanical Ventilator 100 03/17/20 13:00 30 Mechanical Ventilator 100 03/17/20 13:00 65 14 118/62 (80) 95 03/17/20 12:59 66 29 100 03/17/20 12:45 66 14 117/64 (81) 96 03/17/20 12:30 67 18 118/66 (83) 96 03/17/20 12:15 82 16 110/64 (79) 93 03/17/20 12:00 100 03/17/20 12:00 98.9 69 19 107/58 (74) 90 03/17/20 12:00 107/58 03/17/20 12:00 118/66 03/17/20 12:00 31 107/58 Mechanical Ventilator 100 03/17/20 12:00 35 Mechanical Ventilator 100 03/17/20 12:00 Mechanical Ventilator 03/17/20 12:00 83 03/17/20 11:45 69 14 96/51 (66) 91 Intake and Output 03/17/20 03/18/20 19:00 07:00 Intake Total 2662.9405 ml 1759.7103 ml Output Total 925 ml 1110 ml Balance 1737.9405 ml 649.7103 ml IV Total 2492.9405 ml 1589.7103 ml Tube Feeding 120 ml 170 ml Other 50 ml Output Urine Total 925 ml 1110 ml Laboratory Tests Test 03/18/20 06:50 White Blood Count 10.8 K/UL (4.8-10.8) Red Blood Count 3.06 M/UL (4.20-5.40) L Hemoglobin 10.2 G/DL (12.0-16.0) L Hematocrit 30.2 % (37.0-47.0) L Mean Corpuscular Volume 99 FL (80-99) Mean Corpuscular Hemoglobin 33.2 PG (27.0-31.0) H Mean Corpuscular Hemoglobin Concent 33.6 G/DL (32.0-36.0) Red Cell Distribution Width 17.4 % (11.6-14.8) H Platelet Count 87 K/UL (150-450) L Mean Platelet Volume 8.5 FL (6.5-10.1) Neutrophils (%) (Auto) % (45.0-75.0) Lymphocytes (%) (Auto) % (20.0-45.0) Monocytes (%) (Auto) % (1.0-10.0) Eosinophils (%) (Auto) % (0.0-3.0) Basophils (%) (Auto) % (0.0-2.0) Neutrophils % (Manual) Pending Lymphocytes % (Manual) Pending Platelet Estimate Pending Platelet Morphology Pending Sodium Level 123 MMOL/L (136-145) L Potassium Level 4.1 MMOL/L (3.5-5.1) Chloride Level 89 MMOL/L (98-107) L Carbon Dioxide Level 30 MMOL/L (21-32) Anion Gap 4 mmol/L (5-15) L Blood Urea Nitrogen 9 mg/dL (7-18) Creatinine 0.7 MG/DL (0.55-1.30) Estimat Glomerular Filtration Rate > 60 mL/min (>60) Glucose Level 176 MG/DL (74-106) H Calcium Level 7.7 MG/DL (8.5-10.1) L Triglycerides Level 80 MG/DL (30-150) Microbiology Date/Time Source Procedure Growth Status 03/16/20 20:50 Sputum Gram Stain - Final Resulted 03/16/20 20:50 Sputum Sputum Culture - Preliminary NORMAL UPPER RESPIRATORY TRACY AT 24 ... Resulted Objective HEENT: Atraumatic and normocephalic. Anicteric. Intubated. NECK: JVP cannot be assessed. No carotid bruit. + ETT. CARDIOVASCULAR: Normal S1, S2. Regular rate and rhythm. No murmurs, gallops, or rubs. PMI is at fourth intercostal space at left midclavicular line. LUNGS: Bibasilar crackles. ABDOMEN: Soft, nontender, and nondistended. No hepatosplenomegaly. Positive bowel sounds. EXTREMITIES: A 2+ edema bilaterally associated with erythema with blistering and crust formation of both feet. Berto Gonzalez MD March 18, 2020 11:44
[2020-03-18] MEDS ORDERED: D5NS 1000ml IV ONE (15:56)
[2020-03-18] MEDS ORDERED: NS 275ml ONE (15:56)
--- NOTE | 2020-03-18 19:22 | Pulmonolgy Critical Care Note ---
Critical Care - Asmt/Plan Assessment/Plan: Pulmonary CCM Progress Note HPI Patient is a 59 year old woman with significant obesity, admitted with bilateral lower extremity cellulitis, had complained of increased swelling and redness to both of her feet and legs Had elevated BNP on admission, persistent edema since admission, worsening hypoxia, LE DVT (right) negative for DVT. 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 COVID 19 positive, Pneumonia VQ no significant perfusion abnormality Prev LE dupplex negative High D Dimer level, on Lovenox PPX Being diuresed, slightly improving infiltrates on CXR, on ACPC,Proned as tolerated Hyponatremia Intubated, PEEP 14 Seen earlier Seen on 03/17/2020 Allergies: No Known Allergies Past Medical History: Obesity, Cirrhosis, Anemia, Anxiety, Cellulitis All Other Systems: negative except mentioned in HPI Physical Exam Vital Signs Noted General Appearance: Obese, Sedated,intubated Head: normocephalic, atraumatic Eyes: bilateral eye PERRL, bilateral eye EOMI ENT: EOM grossly intact, moist MM, no LN Respiratory: lungs clear, bilateral rhonchi Cardiovascular: regular rate, rhythm, HS1, HS2 RRR Gastrointestinal: Obese, soft non tender, ND Musculoskeletal: Significant edema and erythema bilateral lower extremity, patient also has crusting on both feet, Neurologic: seadted, no focalsigns Impression: Bilateral Lower Extremity Cellulitis Elevated NPA, severe bilateral edema Covid Pneumonia Worsening hypoxia, PaO2 less than 60 on 100%, elevated PCO2 of 48, no intubated Cirrhosis Splenomegaly Anemia Anxiety Plan IV Antibiotics per ID Surgery following for wounds Hematology following for anemia, observing for Neutropenia Diurese PRN Monitor labs Bronchodilators PPX - SCD, Lovenox Echocardiogram AC PC Proning PRN NS DC free water NPO as will need intubation if deterioration continues IV mainenance fluids Supplement electrolytes Albuterol PRN SW Patients daughter Tri - discussed grave prognosis, suggested DNAR - will consider DW Phamacist - Remdesavir ordered Labs Noted Chest X-Ray: Cardiomegaly, left lower lobe atelectasis versus effusion, worsening infiltrates/congestion Subjective ROS Limited/Unobtainable: No Constitutional: Reports: no symptoms Gastrointestinal/Abdominal: Reports: no symptoms Musculoskeletal: Reports: other - SOB Allergies: Coded Allergies: No Known Allergies (Unverified , 02/29/20) ICU time 50 minutes Critical Care - Objective Last 24 Hour Vital Signs Date Time Temp Pulse Resp B/P (MAP) Pulse Ox O2 Delivery O2 Flow Rate FiO2 03/18/20 18:30 70 26 121/57 (78) 97 03/18/20 18:00 21 121/62 Mechanical Ventilator 100 03/18/20 18:00 121/62 03/18/20 18:00 70 26 124/60 (81) 96 03/18/20 17:30 70 21 125/62 (83) 96 03/18/20 17:00 22 120/61 Mechanical Ventilator 100 03/18/20 17:00 120/61 03/18/20 17:00 69 22 124/64 (84) 96 03/18/20 16:55 69 26 100 03/18/20 16:30 69 43 126/63 (84) 96 03/18/20 16:00 100 03/18/20 16:00 Mechanical Ventilator 03/18/20 16:00 70 03/18/20 16:00 70 40 122/64 (83) 96 03/18/20 15:30 71 41 122/65 (84) 95 03/18/20 15:04 70 26 100 03/18/20 15:00 71 43 124/63 (83) 95 03/18/20 15:00 120/60 03/18/20 15:00 30 120/60 Mechanical Ventilator 100 03/18/20 15:00 120/60 03/18/20 15:00 24 Mechanical Ventilator 100 03/18/20 14:30 70 44 120/59 (79) 96 03/18/20 14:00 129/67 03/18/20 14:00 30 126/62 Mechanical Ventilator 100 03/18/20 14:00 126/60 03/18/20 14:00 26 Mechanical Ventilator 100 03/18/20 14:00 71 49 126/67 (86) 96 03/18/20 13:50 126/67 03/18/20 13:30 71 50 124/63 (83) 95 03/18/20 13:09 70 26 100 03/18/20 13:00 129/66 03/18/20 13:00 30 129/66 Mechanical Ventilator 100 03/18/20 13:00 129/66 03/18/20 13:00 71 46 129/64 (85) 95 03/18/20 12:00 98.6 71 51 126/67 (86) 95 03/18/20 12:00 100 03/18/20 12:00 129/66 03/18/20 12:00 30 129/66 Mechanical Ventilator 100 03/18/20 12:00 129/66 03/18/20 12:00 69 03/18/20 12:00 Mechanical Ventilator 03/18/20 11:30 69 48 126/66 (86) 95 03/18/20 11:13 69 26 100 03/18/20 11:12 30 129/84 Mechanical Ventilator 100 03/18/20 11:00 70 47 129/64 (85) 95 03/18/20 11:00 120/62 03/18/20 11:00 120/62 03/18/20 11:00 120/62 03/18/20 11:00 30 120/62 Mechanical Ventilator 100 03/18/20 11:00 30 120/62 Mechanical Ventilator 100 03/18/20 11:00 30 120/62 Mechanical Ventilator 100 03/18/20 11:00 120/62 03/18/20 11:00 120/62 03/18/20 11:00 120/62 03/18/20 10:00 67 34 125/60 (81) 96 03/18/20 10:00 125/60 03/18/20 10:00 30 125/60 Mechanical Ventilator 100 03/18/20 10:00 125/60 03/18/20 09:30 67 41 132/66 (88) 97 03/18/20 09:12 97 26 100 03/18/20 09:00 66 50 130/66 (87) 97 03/18/20 09:00 130/66 03/18/20 09:00 30 130/66 Mechanical Ventilator 100 03/18/20 09:00 130/66 03/18/20 08:30 67 50 132/65 (87) 96 03/18/20 08:00 100 03/18/20 08:00 129/69 03/18/20 08:00 30 129/69 Mechanical Ventilator 100 03/18/20 08:00 129/69 03/18/20 08:00 98.4 66 38 132/69 (90) 97 03/18/20 08:00 Mechanical Ventilator 03/18/20 08:00 68 03/18/20 07:15 68 45 129/68 (88) 95 03/18/20 07:10 67 26 100 03/18/20 07:00 66 32 130/69 (89) 96 03/18/20 07:00 129/68 03/18/20 07:00 129/68 03/18/20 06:37 35 125/64 Mechanical Ventilator 100 03/18/20 06:00 132/69 03/18/20 06:00 132/69 03/18/20 06:00 67 48 132/69 (90) 97 03/18/20 05:45 65 30 137/75 (95) 98 03/18/20 05:37 25 127/70 Mechanical Ventilator 100 03/18/20 05:30 65 26 127/70 (89) 97 03/18/20 05:15 66 24 129/70 (89) 97 03/18/20 05:00 125/66 03/18/20 05:00 123/66 03/18/20 05:00 65 23 123/66 (85) 97 03/18/20 04:45 72 22 122/65 (84) 98 03/18/20 04:39 68 26 100 03/18/20 04:37 26 114/56 Mechanical Ventilator 100 03/18/20 04:36 114/56 03/18/20 04:30 85 32 114/56 (75) 88 03/18/20 04:26 84 39 116/64 (81) 84 03/18/20 04:15 66 61 139/80 (99) 93 03/18/20 04:00 98.4 84 28 89/50 (63) 83 03/18/20 04:00 100 03/18/20 04:00 89/50 03/18/20 04:00 Mechanical Ventilator 03/18/20 03:45 64 27 91/51 (64) 96 03/18/20 03:30 68 28 87/50 (62) 96 03/18/20 03:30 87/50 03/18/20 03:20 69 26 100 03/18/20 03:15 66 26 125/63 (83) 97 03/18/20 03:10 26 135/69 Mechanical Ventilator 100 03/18/20 03:03 26 Mechanical Ventilator 100 03/18/20 03:01 66 03/18/20 03:00 66 26 135/69 (91) 97 03/18/20 03:00 135/69 03/18/20 02:45 66 26 135/67 (89) 97 03/18/20 02:30 65 26 135/66 (89) 97 03/18/20 02:15 65 26 135/66 (89) 97 03/18/20 02:10 26 134/67 Mechanical Ventilator 100 03/18/20 02:00 66 26 134/67 (89) 97 03/18/20 02:00 134/67 03/18/20 01:45 67 26 142/69 (93) 96 03/18/20 01:45 142/69 03/18/20 01:30 67 26 142/68 (92) 96 03/18/20 01:15 67 26 141/68 (92) 96 03/18/20 01:15 26 Mechanical Ventilator 100 03/18/20 01:10 26 141/69 Mechanical Ventilator 100 03/18/20 01:00 68 26 141/69 (93) 96 03/18/20 01:00 141/69 03/18/20 01:00 141/69 03/18/20 01:00 26 Mechanical Ventilator 100 03/18/20 00:45 69 26 142/69 (93) 96 03/18/20 00:35 68 27 100 03/18/20 00:30 68 26 143/69 (93) 96 03/18/20 00:15 68 26 143/69 (93) 96 03/18/20 00:10 26 146/72 Mechanical Ventilator 100 03/18/20 00:10 26 146/72 Mechanical Ventilator 100 03/18/20 00:00 Mechanical Ventilator 03/18/20 00:00 97.8 68 28 146/72 (96) 96 03/18/20 00:00 146/72 03/18/20 00:00 146/72 03/18/20 00:00 26 Mechanical Ventilator 100 03/17/20 23:45 69 26 146/70 (95) 96 03/17/20 23:30 69 26 145/70 (95) 96 03/17/20 23:18 68 03/17/20 23:15 69 27 147/70 (95) 96 03/17/20 23:15 69 28 100 03/17/20 23:10 27 147/70 Mechanical Ventilator 100 03/17/20 23:00 147/70 03/17/20 23:00 147/70 03/17/20 23:00 27 Mechanical Ventilator 100 03/17/20 23:00 69 27 147/70 (95) 96 03/17/20 22:45 69 26 145/70 (95) 96 03/17/20 22:30 69 27 146/70 (95) 96 03/17/20 22:15 72 26 149/71 (97) 96 03/17/20 22:10 26 159/77 Mechanical Ventilator 100 03/17/20 22:00 78 26 159/77 (104) 96 03/17/20 22:00 159/77 03/17/20 22:00 159/77 03/17/20 22:00 26 Mechanical Ventilator 100 03/17/20 21:45 74 35 148/72 (97) 96 03/17/20 21:30 63 31 136/68 (90) 96 03/17/20 21:15 68 26 124/60 (81) 93 03/17/20 21:10 24 150/70 Mechanical Ventilator 100 03/17/20 21:00 69 21 150/70 (96) 94 03/17/20 21:00 150/70 03/17/20 21:00 136/68 03/17/20 21:00 150/70 03/17/20 21:00 24 Mechanical Ventilator 100 03/17/20 20:45 69 23 152/71 (98) 94 03/17/20 20:44 67 26 100 03/17/20 20:30 68 22 152/70 (97) 94 03/17/20 20:15 68 21 148/72 (97) 94 03/17/20 20:10 22 152/69 Mechanical Ventilator 100 03/17/20 20:00 100 03/17/20 20:00 152/74 03/17/20 20:00 152/74 03/17/20 20:00 22 Mechanical Ventilator 100 03/17/20 20:00 Mechanical Ventilator 03/17/20 20:00 98.2 69 22 152/74 (100) 93 03/17/20 19:45 69 22 149/72 (97) 93 03/17/20 19:30 70 22 147/72 (97) 93 Micro: Microbiology Date/Time Source Procedure Growth Status 03/16/20 20:50 Sputum Gram Stain - Final Resulted 03/16/20 20:50 Sputum Sputum Culture - Preliminary NORMAL UPPER RESPIRATORY TRACY AT 24 ... Resulted Accucheck: 186 Critical Care - Subjective ROS Limited/Unobtainable: No Condition: critical IV Access: PICC FI02: 100 Vent Support Breath Rate: 26 Vent Support Mode: AC Vent Tidal Volume: 400 Sputum Amount: Scant PEEP: 14.0 PIP: 35 Tube Feeding Amount: 20 I&O: Intake and Output 03/17/20 03/18/20 19:00 07:00 Intake Total 2662.9405 ml 1759.7103 ml Output Total 925 ml 1110 ml Balance 1737.9405 ml 649.7103 ml IV Total 2492.9405 ml 1589.7103 ml Tube Feeding 120 ml 170 ml Other 50 ml Output Urine Total 925 ml 1110 ml ET-Tube: 7.5 ET Position: 21 Doron Carrillo MD March 18, 2020 19:22
--- NOTE | 2020-03-18 20:24 | General Progress Note ---
Assessment/Plan Problem List: (1) Cellulitis ICD Codes: L03.90 - Cellulitis, unspecified SNOMED: [id number] Qualifiers: Qualified Codes: L03.119 - Cellulitis of unspecified part of limb Status: progressing, unchanged Assessment/Plan: leukocytosis improved afebrile poor prognosis hyponatramia is getting worse.treatment per dr valera elevated tsh consulted dr khnana resps insuff pna sepsis anemia cirrhosis Subjective ROS Limited/Unobtainable: Yes Allergies: Coded Allergies: No Known Allergies (Unverified , 02/29/20) Objective Last 24 Hour Vital Signs Date Time Temp Pulse Resp B/P (MAP) Pulse Ox O2 Delivery O2 Flow Rate FiO2 03/18/20 20:00 72 27 100 03/18/20 19:00 111/58 03/18/20 19:00 26 111/58 Mechanical Ventilator 100 03/18/20 19:00 111/58 03/18/20 19:00 26 Mechanical Ventilator 100 03/18/20 19:00 69 26 111/58 (75) 97 03/18/20 18:30 70 26 121/57 (78) 97 03/18/20 18:00 121/62 03/18/20 18:00 21 121/62 Mechanical Ventilator 100 03/18/20 18:00 121/62 03/18/20 18:00 21 Mechanical Ventilator 100 03/18/20 18:00 70 26 124/60 (81) 96 03/18/20 17:30 70 21 125/62 (83) 96 03/18/20 17:00 120/61 03/18/20 17:00 22 120/61 Mechanical Ventilator 100 03/18/20 17:00 120/61 03/18/20 17:00 21 Mechanical Ventilator 100 03/18/20 17:00 69 22 124/64 (84) 96 03/18/20 16:55 69 26 100 03/18/20 16:30 69 43 126/63 (84) 96 03/18/20 16:00 100 03/18/20 16:00 Mechanical Ventilator 03/18/20 16:00 122/64 03/18/20 16:00 26 122/64 Mechanical Ventilator 100 03/18/20 16:00 122/64 03/18/20 16:00 26 Mechanical Ventilator 100 03/18/20 16:00 70 03/18/20 16:00 70 40 122/64 (83) 96 03/18/20 15:30 71 41 122/65 (84) 95 03/18/20 15:04 70 26 100 03/18/20 15:00 71 43 124/63 (83) 95 03/18/20 15:00 120/60 03/18/20 15:00 30 120/60 Mechanical Ventilator 100 03/18/20 15:00 120/60 03/18/20 15:00 24 Mechanical Ventilator 100 03/18/20 14:30 70 44 120/59 (79) 96 03/18/20 14:00 129/67 03/18/20 14:00 30 126/62 Mechanical Ventilator 100 03/18/20 14:00 126/60 03/18/20 14:00 26 Mechanical Ventilator 100 03/18/20 14:00 71 49 126/67 (86) 96 03/18/20 13:50 126/67 03/18/20 13:30 71 50 124/63 (83) 95 03/18/20 13:09 70 26 100 03/18/20 13:00 129/66 03/18/20 13:00 30 129/66 Mechanical Ventilator 100 03/18/20 13:00 129/66 03/18/20 13:00 71 46 129/64 (85) 95 03/18/20 12:00 98.6 71 51 126/67 (86) 95 03/18/20 12:00 100 03/18/20 12:00 129/66 03/18/20 12:00 30 129/66 Mechanical Ventilator 100 03/18/20 12:00 129/66 03/18/20 12:00 69 03/18/20 12:00 Mechanical Ventilator 03/18/20 11:30 69 48 126/66 (86) 95 03/18/20 11:13 69 26 100 03/18/20 11:12 30 129/84 Mechanical Ventilator 100 03/18/20 11:00 70 47 129/64 (85) 95 03/18/20 11:00 120/62 03/18/20 11:00 120/62 03/18/20 11:00 120/62 03/18/20 11:00 30 120/62 Mechanical Ventilator 100 03/18/20 11:00 30 120/62 Mechanical Ventilator 100 03/18/20 11:00 30 120/62 Mechanical Ventilator 100 03/18/20 11:00 120/62 03/18/20 11:00 120/62 03/18/20 11:00 120/62 03/18/20 10:00 67 34 125/60 (81) 96 03/18/20 10:00 125/60 03/18/20 10:00 30 125/60 Mechanical Ventilator 100 03/18/20 10:00 125/60 03/18/20 09:30 67 41 132/66 (88) 97 03/18/20 09:12 97 26 100 03/18/20 09:00 66 50 130/66 (87) 97 03/18/20 09:00 130/66 03/18/20 09:00 30 130/66 Mechanical Ventilator 100 03/18/20 09:00 130/66 03/18/20 08:30 67 50 132/65 (87) 96 03/18/20 08:00 100 03/18/20 08:00 129/69 03/18/20 08:00 30 129/69 Mechanical Ventilator 100 03/18/20 08:00 129/69 03/18/20 08:00 98.4 66 38 132/69 (90) 97 03/18/20 08:00 Mechanical Ventilator 03/18/20 08:00 68 03/18/20 07:15 68 45 129/68 (88) 95 03/18/20 07:10 67 26 100 03/18/20 07:00 66 32 130/69 (89) 96 03/18/20 07:00 129/68 03/18/20 07:00 129/68 03/18/20 06:37 35 125/64 Mechanical Ventilator 100 03/18/20 06:00 132/69 03/18/20 06:00 132/69 03/18/20 06:00 67 48 132/69 (90) 97 03/18/20 05:45 65 30 137/75 (95) 98 03/18/20 05:37 25 127/70 Mechanical Ventilator 100 03/18/20 05:30 65 26 127/70 (89) 97 03/18/20 05:15 66 24 129/70 (89) 97 03/18/20 05:00 125/66 03/18/20 05:00 123/66 03/18/20 05:00 65 23 123/66 (85) 97 03/18/20 04:45 72 22 122/65 (84) 98 03/18/20 04:39 68 26 100 03/18/20 04:37 26 114/56 Mechanical Ventilator 100 03/18/20 04:36 114/56 03/18/20 04:30 85 32 114/56 (75) 88 03/18/20 04:26 84 39 116/64 (81) 84 03/18/20 04:15 66 61 139/80 (99) 93 03/18/20 04:00 98.4 84 28 89/50 (63) 83 03/18/20 04:00 100 03/18/20 04:00 89/50 03/18/20 04:00 Mechanical Ventilator 03/18/20 03:45 64 27 91/51 (64) 96 03/18/20 03:30 68 28 87/50 (62) 96 03/18/20 03:30 87/50 03/18/20 03:20 69 26 100 03/18/20 03:15 66 26 125/63 (83) 97 03/18/20 03:10 26 135/69 Mechanical Ventilator 100 03/18/20 03:03 26 Mechanical Ventilator 100 03/18/20 03:01 66 03/18/20 03:00 66 26 135/69 (91) 97 03/18/20 03:00 135/69 03/18/20 02:45 66 26 135/67 (89) 97 03/18/20 02:30 65 26 135/66 (89) 97 03/18/20 02:15 65 26 135/66 (89) 97 03/18/20 02:10 26 134/67 Mechanical Ventilator 100 03/18/20 02:00 66 26 134/67 (89) 97 03/18/20 02:00 134/67 03/18/20 01:45 67 26 142/69 (93) 96 03/18/20 01:45 142/69 03/18/20 01:30 67 26 142/68 (92) 96 03/18/20 01:15 67 26 141/68 (92) 96 03/18/20 01:15 26 Mechanical Ventilator 100 03/18/20 01:10 26 141/69 Mechanical Ventilator 100 03/18/20 01:00 68 26 141/69 (93) 96 03/18/20 01:00 141/69 03/18/20 01:00 141/69 03/18/20 01:00 26 Mechanical Ventilator 100 03/18/20 00:45 69 26 142/69 (93) 96 03/18/20 00:35 68 27 100 03/18/20 00:30 68 26 143/69 (93) 96 03/18/20 00:15 68 26 143/69 (93) 96 03/18/20 00:10 26 146/72 Mechanical Ventilator 100 03/18/20 00:10 26 146/72 Mechanical Ventilator 100 03/18/20 00:00 Mechanical Ventilator 03/18/20 00:00 97.8 68 28 146/72 (96) 96 03/18/20 00:00 146/72 03/18/20 00:00 146/72 03/18/20 00:00 26 Mechanical Ventilator 100 03/17/20 23:45 69 26 146/70 (95) 96 03/17/20 23:30 69 26 145/70 (95) 96 03/17/20 23:18 68 03/17/20 23:15 69 27 147/70 (95) 96 03/17/20 23:15 69 28 100 03/17/20 23:10 27 147/70 Mechanical Ventilator 100 03/17/20 23:00 147/70 03/17/20 23:00 147/70 03/17/20 23:00 27 Mechanical Ventilator 100 03/17/20 23:00 69 27 147/70 (95) 96 03/17/20 22:45 69 26 145/70 (95) 96 03/17/20 22:30 69 27 146/70 (95) 96 03/17/20 22:15 72 26 149/71 (97) 96 03/17/20 22:10 26 159/77 Mechanical Ventilator 100 03/17/20 22:00 78 26 159/77 (104) 96 03/17/20 22:00 159/77 03/17/20 22:00 159/77 03/17/20 22:00 26 Mechanical Ventilator 100 03/17/20 21:45 74 35 148/72 (97) 96 03/17/20 21:30 63 31 136/68 (90) 96 03/17/20 21:15 68 26 124/60 (81) 93 03/17/20 21:10 24 150/70 Mechanical Ventilator 100 03/17/20 21:00 69 21 150/70 (96) 94 03/17/20 21:00 150/70 03/17/20 21:00 136/68 03/17/20 21:00 150/70 03/17/20 21:00 24 Mechanical Ventilator 100 03/17/20 20:45 69 23 152/71 (98) 94 03/17/20 20:44 67 26 100 03/17/20 20:30 68 22 152/70 (97) 94 Intake and Output 03/17/20 03/18/20 19:00 07:00 Intake Total 2662.9405 ml 1759.7103 ml Output Total 925 ml 1110 ml Balance 1737.9405 ml 649.7103 ml IV Total 2492.9405 ml 1589.7103 ml Tube Feeding 120 ml 170 ml Other 50 ml Output Urine Total 925 ml 1110 ml Laboratory Tests 03/18/20 06:50: White Blood Count 10.8, Red Blood Count 3.06L, Hemoglobin 10.2L, Hematocrit 30.2L, Mean Corpuscular Volume 99, Mean Corpuscular Hemoglobin 33.2H, Mean Corpuscular Hemoglobin Concent 33.6, Red Cell Distribution Width 17.4H, Platelet Count 87L, Mean Platelet Volume 8.5, Neutrophils (%) (Auto) , Lymphocytes (%) (Auto) , Monocytes (%) (Auto) , Eosinophils (%) (Auto) , Basophils (%) (Auto) , Differential Total Cells Counted 100, Neutrophils % ( Manual) 88H, Lymphocytes % (Manual) 8L, Monocytes % (Manual) 4, Eosinophils % ( Manual) 0, Basophils % (Manual) 0, Band Neutrophils 0, Platelet Estimate DecreasedL, Platelet Morphology Normal, Anisocytosis 1+, Macrocytosis 1+, Sodium Level 123L, Potassium Level 4.1, Chloride Level 89L, Carbon Dioxide Level 30, Anion Gap 4L, Blood Urea Nitrogen 9, Creatinine 0.7, Estimat Glomerular Filtration Rate > 60, Glucose Level 176H, Calcium Level 7.7L, Triglycerides Level 80 Height (Feet): 5 Height (Inches): 1.00 Weight (Pounds): 238 Celso Moreno MD March 18, 2020 20:24
[2020-03-18] MEDS: Dyna-Hex 2% Top Sol 2oz TOPIC SCH (20:31)
[2020-03-18] MEDS: Norepinephrine Bitartrate 16 MG in D5W 500ml 484 ML IV SCH (22:12)
[2020-03-19] VITALS (57 sets, daily range): BP systolic 82–168; BP diastolic 47–130
[2020-03-19] MEDS: DOPamine 400mg/250ml 250 ML IV SCH ×3 (00:17→21:37)
[2020-03-19] MEDS: NovoLOG Insulin Flexpen SUBQ SCH ×5 (00:19→23:23)
[2020-03-19] MEDS: Metoclopramide 10mg/2ml Inj IVP SCH ×4 (04:29→20:56)
[2020-03-19] MEDS: propofoL 1,000mg/100ml 100 ML IV SCH ×3 (04:30→23:39)
[2020-03-19] MEDS: Meropenem 1 GM in NS 55 ML IVPB SCH ×3 (05:43→21:35)
[2020-03-19 06:38] LABS: HEMATOCRIT 30.3 % (37.0-47.0); MEAN CORPUSCULAR VOLUME 99 FL (80-99); PLATELET COUNT 121 K/UL (150-450); RED BLOOD COUNT 3.05 M/UL (4.20-5.40); RED CELL DISTRIBUTION WIDTH 16.6 % (11.6-14.8); WHITE BLOOD COUNT 11.2 K/UL (4.8-10.8)
[2020-03-19 06:47] LABS: AMMONIA 96 umol/L (11-32)
--- NOTE | 2020-03-19 06:54 | General Progress Note ---
Assessment/Plan Status: progressing, unchanged Assessment/Plan: macrocytic anemia elevated LFTS cirrhosis cellulitis elevated Ammonia levels respiratory distress>>> now failure COVID positive pna NGTF reglan abd us>> reviewed lactulose and Xifaxan fu stool ob>>>neg s/p one unit PRBC in this admission GI procedures if needed abx per id hepatitis panel>>>>>positive for hep C>>> needs out patient fu poor prognosis add laxatives will fu Subjective ROS Limited/Unobtainable: No Allergies: Coded Allergies: No Known Allergies (Unverified , 02/29/20) Objective Last 24 Hour Vital Signs Date Time Temp Pulse Resp B/P (MAP) Pulse Ox O2 Delivery O2 Flow Rate FiO2 03/19/20 06:00 100.5 76 24 136/74 (94) 97 03/19/20 06:00 131/74 03/19/20 06:00 24 136/74 Mechanical Ventilator 100 03/19/20 06:00 131/74 03/19/20 06:00 24 Mechanical Ventilator 100 03/19/20 05:30 75 24 129/73 (91) 97 03/19/20 05:07 75 26 100 03/19/20 05:00 76 23 134/73 (93) 97 03/19/20 05:00 131/73 03/19/20 05:00 23 131/67 Mechanical Ventilator 100 03/19/20 05:00 131/73 03/19/20 05:00 23 Mechanical Ventilator 100 03/19/20 04:30 73 22 137/72 (93) 99 03/19/20 04:30 22 137/72 Mechanical Ventilator 100 03/19/20 04:00 100 03/19/20 04:00 75 03/19/20 04:00 101.0 75 27 131/67 (88) 99 03/19/20 04:00 131/67 03/19/20 04:00 27 131/67 Mechanical Ventilator 100 03/19/20 04:00 131/67 03/19/20 04:00 25 Mechanical Ventilator 100 03/19/20 04:00 Mechanical Ventilator 03/19/20 03:43 76 31 100 03/19/20 03:30 83 26 132/73 (92) 95 03/19/20 03:00 76 24 132/66 (88) 96 03/19/20 03:00 132/66 03/19/20 03:00 24 132/66 Mechanical Ventilator 100 03/19/20 03:00 132/66 03/19/20 03:00 24 Mechanical Ventilator 100 03/19/20 02:00 131/69 03/19/20 02:00 25 131/69 Mechanical Ventilator 100 03/19/20 02:00 131/69 03/19/20 02:00 25 Mechanical Ventilator 100 03/19/20 02:00 75 25 131/69 (89) 96 03/19/20 01:30 76 24 137/74 (95) 96 03/19/20 01:11 74 30 100 03/19/20 01:03 100.5 03/19/20 01:00 75 23 128/70 (89) 96 03/19/20 01:00 128/70 03/19/20 01:00 23 128/70 Mechanical Ventilator 100 03/19/20 01:00 128/70 03/19/20 01:00 23 Mechanical Ventilator 100 03/19/20 00:30 73 24 134/70 (91) 94 03/19/20 00:17 130/70 03/19/20 00:00 72 03/19/20 00:00 101.0 72 23 130/70 (90) 96 03/19/20 00:00 130/70 03/19/20 00:00 23 130/70 Mechanical Ventilator 100 03/19/20 00:00 130/70 03/19/20 00:00 23 Mechanical Ventilator 100 03/19/20 00:00 100 03/19/20 00:00 Mechanical Ventilator 03/18/20 23:30 73 25 136/70 (92) 95 03/18/20 23:11 73 27 100 03/18/20 23:00 72 22 134/65 (88) 95 03/18/20 23:00 134/65 03/18/20 23:00 22 134/65 Mechanical Ventilator 100 03/18/20 23:00 134/65 03/18/20 23:00 22 Mechanical Ventilator 100 03/18/20 22:30 72 25 124/72 (89) 95 03/18/20 22:12 113/63 03/18/20 22:00 73 25 113/63 (80) 95 03/18/20 22:00 113/63 03/18/20 22:00 25 113/63 Mechanical Ventilator 100 03/18/20 22:00 113/63 03/18/20 22:00 25 Mechanical Ventilator 100 03/18/20 21:05 70 26 100 03/18/20 21:00 70 25 122/68 (86) 98 20 21:00 122/68 20 21:00 25 122/68 Mechanical Ventilator 100 03/18/20 21:00 122/68 03/18/20 21:00 25 Mechanical Ventilator 100 03/18/20 20:30 22 105/55 Mechanical Ventilator 100 03/18/20 20:30 87 23 114/60 (78) 96 03/18/20 20:00 100 03/18/20 20:00 72 27 100 03/18/20 20:00 100.1 73 25 107/58 (74) 94 03/18/20 20:00 107/58 03/18/20 20:00 25 107/58 Mechanical Ventilator 100 03/18/20 20:00 107/58 03/18/20 20:00 25 Mechanical Ventilator 100 03/18/20 20:00 73 03/18/20 20:00 Mechanical Ventilator 03/18/20 19:30 72 26 112/63 (79) 96 03/18/20 19:00 111/58 03/18/20 19:00 26 111/58 Mechanical Ventilator 100 03/18/20 19:00 111/58 03/18/20 19:00 26 Mechanical Ventilator 100 03/18/20 19:00 69 26 111/58 (75) 97 03/18/20 18:30 70 26 121/57 (78) 97 03/18/20 18:00 121/62 03/18/20 18:00 21 121/62 Mechanical Ventilator 100 03/18/20 18:00 121/62 03/18/20 18:00 21 Mechanical Ventilator 100 03/18/20 18:00 70 26 124/60 (81) 96 03/18/20 17:30 70 21 125/62 (83) 96 03/18/20 17:00 120/61 20 17:00 22 120/61 Mechanical Ventilator 100 03/18/20 17:00 120/61 20 17:00 21 Mechanical Ventilator 100 03/18/20 17:00 69 22 124/64 (84) 96 03/18/20 16:55 69 26 100 03/18/20 16:30 69 43 126/63 (84) 96 03/18/20 16:00 100 03/18/20 16:00 Mechanical Ventilator 03/18/20 16:00 122/64 03/18/20 16:00 26 122/64 Mechanical Ventilator 100 03/18/20 16:00 122/64 03/18/20 16:00 26 Mechanical Ventilator 100 03/18/20 16:00 70 03/18/20 16:00 70 40 122/64 (83) 96 03/18/20 15:30 71 41 122/65 (84) 95 03/18/20 15:04 70 26 100 03/18/20 15:00 71 43 124/63 (83) 95 03/18/20 15:00 120/60 03/18/20 15:00 30 120/60 Mechanical Ventilator 100 03/18/20 15:00 120/60 03/18/20 15:00 24 Mechanical Ventilator 100 03/18/20 14:30 70 44 120/59 (79) 96 03/18/20 14:00 129/67 03/18/20 14:00 30 126/62 Mechanical Ventilator 100 03/18/20 14:00 126/60 03/18/20 14:00 26 Mechanical Ventilator 100 03/18/20 14:00 71 49 126/67 (86) 96 03/18/20 13:50 126/67 03/18/20 13:30 71 50 124/63 (83) 95 03/18/20 13:09 70 26 100 03/18/20 13:00 129/66 03/18/20 13:00 30 129/66 Mechanical Ventilator 100 03/18/20 13:00 129/66 03/18/20 13:00 71 46 129/64 (85) 95 03/18/20 12:00 98.6 71 51 126/67 (86) 95 03/18/20 12:00 100 03/18/20 12:00 129/66 03/18/20 12:00 30 129/66 Mechanical Ventilator 100 03/18/20 12:00 129/66 03/18/20 12:00 69 03/18/20 12:00 Mechanical Ventilator 03/18/20 11:30 69 48 126/66 (86) 95 03/18/20 11:13 69 26 100 03/18/20 11:12 30 129/84 Mechanical Ventilator 100 03/18/20 11:00 70 47 129/64 (85) 95 03/18/20 11:00 120/62 03/18/20 11:00 120/62 03/18/20 11:00 120/62 03/18/20 11:00 30 120/62 Mechanical Ventilator 100 03/18/20 11:00 30 120/62 Mechanical Ventilator 100 03/18/20 11:00 30 120/62 Mechanical Ventilator 100 03/18/20 11:00 120/62 03/18/20 11:00 120/62 03/18/20 11:00 120/62 03/18/20 10:00 67 34 125/60 (81) 96 03/18/20 10:00 125/60 03/18/20 10:00 30 125/60 Mechanical Ventilator 100 03/18/20 10:00 125/60 03/18/20 09:30 67 41 132/66 (88) 97 03/18/20 09:12 97 26 100 03/18/20 09:00 66 50 130/66 (87) 97 03/18/20 09:00 130/66 03/18/20 09:00 30 130/66 Mechanical Ventilator 100 03/18/20 09:00 130/66 03/18/20 08:30 67 50 132/65 (87) 96 03/18/20 08:00 100 03/18/20 08:00 129/69 03/18/20 08:00 30 129/69 Mechanical Ventilator 100 03/18/20 08:00 129/69 03/18/20 08:00 98.4 66 38 132/69 (90) 97 03/18/20 08:00 Mechanical Ventilator 03/18/20 08:00 68 03/18/20 07:15 68 45 129/68 (88) 95 03/18/20 07:10 67 26 100 03/18/20 07:00 66 32 130/69 (89) 96 03/18/20 07:00 129/68 03/18/20 07:00 129/68 Intake and Output 03/18/20 03/19/20 19:00 07:00 Intake Total 1586.499 ml 1707.77424 ml Output Total 420 ml 750 ml Balance 1166.499 ml 957.12971 ml Free Water 120 ml IV Total 1126.499 ml 1277.96514 ml Tube Feeding 240 ml 250 ml Other 100 ml 180 ml Output Urine Total 420 ml 750 ml Laboratory Tests 03/19/20 05:15: White Blood Count [Pending], Red Blood Count [Pending], Hemoglobin [Pending], Hematocrit [Pending], Mean Corpuscular Volume [Pending], Mean Corpuscular Hemoglobin [Pending], Mean Corpuscular Hemoglobin Concent [Pending], Red Cell Distribution Width [Pending], Platelet Count [Pending], Mean Platelet Volume [ Pending], Neutrophils (%) (Auto) [Pending], Lymphocytes (%) (Auto) [Pending], Monocytes (%) (Auto) [Pending], Eosinophils (%) (Auto) [Pending], Basophils (%) (Auto) [Pending], Sodium Level [Pending], Potassium Level [Pending], Chloride Level [Pending], Carbon Dioxide Level [Pending], Blood Urea Nitrogen [Pending], Creatinine [Pending], Estimat Glomerular Filtration Rate [Pending], Glucose Level [Pending], Calcium Level [Pending], Magnesium Level [Pending], Total Bilirubin [Pending], Aspartate Amino Transf (AST/SGOT) [Pending], Alanine Aminotransferase (ALT/SGPT) [Pending], Alkaline Phosphatase [Pending], Ammonia [ Pending], Total Protein [Pending], Albumin [Pending], Globulin [Pending] Height (Feet): 5 Height (Inches): 1.00 Weight (Pounds): 237 General Appearance: lethargic EENT: normal ENT inspection Neck: supple Cardiovascular: tachycardia Respiratory/Chest: decreased breath sounds Abdomen: normal bowel sounds, non tender, soft Extremities: non-tender Tam Spicer MD March 19, 2020 06:54
[2020-03-19 07:04] LABS: ALANINE AMINOTRANSFERASE 24 U/L (12-78); ALBUMIN 1.7 G/DL (3.4-5.0); ALBUMIN/GLOBULIN RATIO 0.2 (1.0-2.7); ALKALINE PHOSPHATASE 145 U/L (46-116); ANION GAP 1 mmol/L (5-15); ASPARTATE AMINO TRANSFERASE 66 U/L (15-37); BILIRUBIN,TOTAL 1.3 MG/DL (0.2-1.0); BLOOD UREA NITROGEN 11 mg/dL (7-18); CALCIUM 7.2 MG/DL (8.5-10.1); CARBON DIOXIDE 32 MMOL/L (21-32); CHLORIDE 92 MMOL/L (98-107); CREATININE 0.7 MG/DL (0.55-1.30); POTASSIUM 5.3 MMOL/L (3.5-5.1); SODIUM 124 MMOL/L (136-145)
[2020-03-19 07:57] LABS: BILIRUBIN,DIRECT 0.7 MG/DL (0.0-0.3)
[2020-03-19] MEDS: Azithromycin 250mg tab ORAL SCH (08:39)
[2020-03-19] MEDS: Docusate 100mg cap ORAL SCH ×2 (08:39→17:39)
[2020-03-19] MEDS: Solu-MEDROL 125mg Inj IVP SCH (08:39)
[2020-03-19] MEDS: Enoxaparin 40mg Inj SUBQ SCH (08:40)
[2020-03-19] MEDS ORDERED: Lactulose 20gm/30ml UDC ORAL SCH (09:00)
[2020-03-19] MEDS: fentaNYL Citrate 2,500 MCG in NS 200 ML IV SCH ×2 (09:15→22:28)
--- NOTE | 2020-03-19 09:47 | Consultation ---
Consult Note Consult Note I am asked to evaluate the patient at the request of Dr. Blevins for hyperkalemia and hyponatremia. Patient is in intensive care unit room B. Patient is intubated on ventilator. Has an NG tube and Tyson. Patient is on 2 pressors. It is day 19 of her hospitalization. Record's data reviewed. Preliminary tests ordered Patient seen in ICU Discussed with RN Intubated on pressors . Assessment/Plan Hyponatremia. Serum sodium started drifting down from March 16. Hyperkalemia. Septic shock. Acute respiratory failure. Respiratory failure and COVID pneumonia. History of cirrhosis/splenomegaly Anemia Bilateral lower extremity cellulitis Suggestions: At this time will order urine spot sodium and urine osmolality Also will check calcium phosphorus magnesium uric acid and serum osmolality Will give a trial of 3% saline, pending above results According to what the lab results are will make the proper changes in our future management Cristhian Granados MD March 19, 2020 09:47
[2020-03-19] MEDS ORDERED: NaCl 3% 500ml 250 ML IV ONE (10:30)
[2020-03-19 11:18] LABS: PHOSPHORUS 3.4 MG/DL (2.5-4.9)
--- NOTE | 2020-03-19 11:54 | Infectious Diseases Prog Note ---
Assessment/Plan Assessment/Plan IMPRESSION: 1. Bilateral leg cellulitis,Pseudomonas in culture 2. Anemia. 3. Hypoxemic respiratory failure 4. Thrombocytopenia. 5. Homeless 6. Morbid obesity. 7. Cirrhosis 8. COVID19 pneumonia Positive03/07-03/12 9. Hepatitis C 10.septic shock RECOMMENDATION: Will f/u COVID19 test Finished Plaquenil course Continue Meropenem & Zithromax Will f/u Sputum culture Will give a dose of Ivermectin Negative VQ scan Subjective ROS Limited/Unobtainable: Yes Constitutional: Reports: fever, other - Vm=[id number] Cardiovascular: Reports: other - on pressors Allergies: Coded Allergies: No Known Allergies (Unverified , 02/29/20) Objective Vital Signs Last 24 Hour Vital Signs Date Time Temp Pulse Resp B/P (MAP) Pulse Ox O2 Delivery O2 Flow Rate FiO2 03/19/20 11:30 115 20 142/66 (91) 92 03/19/20 11:18 85 19 145/90 (108) 93 03/19/20 11:00 100.0 85 19 145/90 (108) 93 03/19/20 10:30 97 30 100 03/19/20 10:00 96 47 154/82 (106) 86 03/19/20 09:30 72 26 154/82 (106) 98 03/19/20 09:23 75 28 100 03/19/20 09:15 22 Mechanical Ventilator 03/19/20 09:00 72 26 129/71 (90) 98 03/19/20 08:30 72 26 136/67 (90) 98 03/19/20 08:00 100 03/19/20 08:00 100 03/19/20 08:00 131/71 03/19/20 08:00 22 131/71 Mechanical Ventilator 03/19/20 08:00 131/71 03/19/20 08:00 22 Mechanical Ventilator 03/19/20 08:00 74 22 131/71 (91) 97 03/19/20 07:48 75 28 100 03/19/20 07:00 75 23 134/73 (93) 97 03/19/20 07:00 134/73 03/19/20 07:00 23 134/73 Mechanical Ventilator 100 03/19/20 07:00 134/73 03/19/20 07:00 23 Mechanical Ventilator 100 03/19/20 06:55 100.0 03/19/20 06:30 75 25 137/74 (95) 97 03/19/20 06:00 100.5 76 24 136/74 (94) 97 03/19/20 06:00 131/74 03/19/20 06:00 24 136/74 Mechanical Ventilator 100 03/19/20 06:00 131/74 03/19/20 06:00 24 Mechanical Ventilator 100 03/19/20 05:30 75 24 129/73 (91) 97 03/19/20 05:07 75 26 100 03/19/20 05:00 76 23 134/73 (93) 97 03/19/20 05:00 131/73 03/19/20 05:00 23 131/67 Mechanical Ventilator 100 03/19/20 05:00 131/73 03/19/20 05:00 23 Mechanical Ventilator 100 03/19/20 04:30 73 22 137/72 (93) 99 03/19/20 04:30 22 137/72 Mechanical Ventilator 100 03/19/20 04:00 100 03/19/20 04:00 75 03/19/20 04:00 101.0 75 27 131/67 (88) 99 03/19/20 04:00 131/67 03/19/20 04:00 27 131/67 Mechanical Ventilator 100 03/19/20 04:00 131/67 03/19/20 04:00 25 Mechanical Ventilator 100 03/19/20 04:00 Mechanical Ventilator 03/19/20 03:43 76 31 100 03/19/20 03:30 83 26 132/73 (92) 95 03/19/20 03:00 76 24 132/66 (88) 96 03/19/20 03:00 132/66 03/19/20 03:00 24 132/66 Mechanical Ventilator 100 03/19/20 03:00 132/66 03/19/20 03:00 24 Mechanical Ventilator 100 03/19/20 02:00 131/69 03/19/20 02:00 25 131/69 Mechanical Ventilator 100 03/19/20 02:00 131/69 03/19/20 02:00 25 Mechanical Ventilator 100 03/19/20 02:00 75 25 131/69 (89) 96 03/19/20 01:30 76 24 137/74 (95) 96 5/3/20 01:11 74 30 100 03/19/20 01:03 100.5 03/19/20 01:00 75 23 128/70 (89) 96 03/19/20 01:00 128/70 03/19/20 01:00 23 128/70 Mechanical Ventilator 100 03/19/20 01:00 128/70 03/19/20 01:00 23 Mechanical Ventilator 100 03/19/20 00:30 73 24 134/70 (91) 94 03/19/20 00:17 130/70 03/19/20 00:00 72 03/19/20 00:00 101.0 72 23 130/70 (90) 96 03/19/20 00:00 130/70 03/19/20 00:00 23 130/70 Mechanical Ventilator 100 03/19/20 00:00 130/70 03/19/20 00:00 23 Mechanical Ventilator 100 03/19/20 00:00 100 03/19/20 00:00 Mechanical Ventilator 03/18/20 23:30 73 25 136/70 (92) 95 03/18/20 23:11 73 27 100 03/18/20 23:00 72 22 134/65 (88) 95 03/18/20 23:00 134/65 03/18/20 23:00 22 134/65 Mechanical Ventilator 100 03/18/20 23:00 134/65 03/18/20 23:00 22 Mechanical Ventilator 100 03/18/20 22:30 72 25 124/72 (89) 95 03/18/20 22:12 113/63 03/18/20 22:00 73 25 113/63 (80) 95 03/18/20 22:00 113/63 03/18/20 22:00 25 113/63 Mechanical Ventilator 100 03/18/20 22:00 113/63 03/18/20 22:00 25 Mechanical Ventilator 100 03/18/20 21:05 70 26 100 03/18/20 21:00 70 25 122/68 (86) 98 03/18/20 21:00 122/68 03/18/20 21:00 25 122/68 Mechanical Ventilator 100 03/18/20 21:00 122/68 03/18/20 21:00 25 Mechanical Ventilator 100 03/18/20 20:30 22 105/55 Mechanical Ventilator 100 03/18/20 20:30 87 23 114/60 (78) 96 20 20:00 100 20 20:00 72 27 100 20 20:00 100.1 73 25 107/58 (74) 94 20 20:00 107/58 520 20:00 25 107/58 Mechanical Ventilator 100 20 20:00 107/58 520 20:00 25 Mechanical Ventilator 100 03/18/20 20:00 73 20 20:00 Mechanical Ventilator 03/18/20 19:30 72 26 112/63 (79) 96 03/18/20 19:00 111/58 20 19:00 26 111/58 Mechanical Ventilator 100 03/18/20 19:00 111/58 03/18/20 19:00 26 Mechanical Ventilator 100 03/18/20 19:00 69 26 111/58 (75) 97 03/18/20 18:30 70 26 121/57 (78) 97 03/18/20 18:00 121/62 03/18/20 18:00 21 121/62 Mechanical Ventilator 100 03/18/20 18:00 121/62 03/18/20 18:00 21 Mechanical Ventilator 100 03/18/20 18:00 70 26 124/60 (81) 96 03/18/20 17:30 70 21 125/62 (83) 96 03/18/20 17:00 120/61 03/18/20 17:00 22 120/61 Mechanical Ventilator 100 03/18/20 17:00 120/61 03/18/20 17:00 21 Mechanical Ventilator 100 03/18/20 17:00 69 22 124/64 (84) 96 03/18/20 16:55 69 26 100 03/18/20 16:30 69 43 126/63 (84) 96 03/18/20 16:00 100 03/18/20 16:00 Mechanical Ventilator 03/18/20 16:00 122/64 03/18/20 16:00 26 122/64 Mechanical Ventilator 100 03/18/20 16:00 122/64 03/18/20 16:00 26 Mechanical Ventilator 100 03/18/20 16:00 70 03/18/20 16:00 70 40 122/64 (83) 96 03/18/20 15:30 71 41 122/65 (84) 95 03/18/20 15:04 70 26 100 03/18/20 15:00 71 43 124/63 (83) 95 03/18/20 15:00 120/60 03/18/20 15:00 30 120/60 Mechanical Ventilator 100 03/18/20 15:00 120/60 03/18/20 15:00 24 Mechanical Ventilator 100 03/18/20 14:30 70 44 120/59 (79) 96 03/18/20 14:00 129/67 03/18/20 14:00 30 126/62 Mechanical Ventilator 100 03/18/20 14:00 126/60 03/18/20 14:00 26 Mechanical Ventilator 100 03/18/20 14:00 71 49 126/67 (86) 96 03/18/20 13:50 126/67 03/18/20 13:30 71 50 124/63 (83) 95 03/18/20 13:09 70 26 100 03/18/20 13:00 129/66 03/18/20 13:00 30 129/66 Mechanical Ventilator 100 03/18/20 13:00 129/66 03/18/20 13:00 71 46 129/64 (85) 95 03/18/20 12:00 98.6 71 51 126/67 (86) 95 03/18/20 12:00 100 03/18/20 12:00 129/66 03/18/20 12:00 30 129/66 Mechanical Ventilator 100 03/18/20 12:00 129/66 03/18/20 12:00 69 03/18/20 12:00 Mechanical Ventilator Height (Feet): 5 Height (Inches): 1.00 Weight (Pounds): 237 General Appearance: other - obese HEENT: other - orally intubated Respiratory/Chest: other - on ventilator, QZX9=372% Cardiovascular: tachycardia, other - PICC line Abdomen: soft, non tender, other Extremities: other - edema Skin: ulcers Neurologic/Psychiatric: unresponsiveness Microbiology Date/Time Source Procedure Growth Status 03/16/20 20:50 Sputum Gram Stain - Final Resulted 03/16/20 20:50 Sputum Culture - Preliminary Gram Negative Bacillus 1 Gram Negative Bacillus 2 Nidhi Albicans Resulted Laboratory Tests Test 03/19/20 05:15 03/19/20 09:45 03/19/20 10:18 03/19/20 10:20 White Blood Count 11.2 K/UL (4.8-10.8) H Red Blood Count 3.05 M/UL (4.20-5.40) L Hemoglobin 10.0 G/DL (12.0-16.0) L Hematocrit 30.3 % (37.0-47.0) L Mean Corpuscular Volume 99 FL (80-99) Mean Corpuscular Hemoglobin 32.9 PG (27.0-31.0) H Mean Corpuscular Hemoglobin Concent 33.2 G/DL (32.0-36.0) Red Cell Distribution Width 16.6 % (11.6-14.8) H Platelet Count 121 K/UL (150-450) L Mean Platelet Volume 6.8 FL (6.5-10.1) Neutrophils (%) (Auto) % (45.0-75.0) Lymphocytes (%) (Auto) % (20.0-45.0) Monocytes (%) (Auto) % (1.0-10.0) Eosinophils (%) (Auto) % (0.0-3.0) Basophils (%) (Auto) % (0.0-2.0) Neutrophils % (Manual) Pending Lymphocytes % (Manual) Pending Platelet Estimate Pending Platelet Morphology Pending Sodium Level 124 MMOL/L (136-145) L Potassium Level 5.3 MMOL/L (3.5-5.1) H Chloride Level 92 MMOL/L (98-107) L Carbon Dioxide Level 32 MMOL/L (21-32) Anion Gap 1 mmol/L (5-15) L Blood Urea Nitrogen 11 mg/dL (7-18) Creatinine 0.7 MG/DL (0.55-1.30) Estimat Glomerular Filtration Rate > 60 mL/min (>60) Glucose Level 162 MG/DL (74-106) H Calcium Level 7.2 MG/DL (8.5-10.1) L Magnesium Level 1.9 MG/DL (1.8-2.4) Total Bilirubin 1.3 MG/DL (0.2-1.0) H Direct Bilirubin 0.7 MG/DL (0.0-0.3) H Aspartate Amino Transf (AST/SGOT) 66 U/L (15-37) H Alanine Aminotransferase (ALT/SGPT) 24 U/L (12-78) Alkaline Phosphatase 145 U/L (46-116) H Ammonia 96 umol/L (11-32) H Total Protein 8.9 G/DL (6.4-8.2) H Albumin 1.7 G/DL (3.4-5.0) L Globulin 7.2 g/dL Albumin/Globulin Ratio 0.2 (1.0-2.7) L Urine Osmolality 457 mOsm/kg (429-449) H Urine Random Sodium < 20 mmol/L (20-110) L Arterial Blood pH 7.257 (7.350-7.450) Arterial Blood Partial Pressure CO2 67.6 mmHg (35.0-45.0) *H Arterial Blood Partial Pressure O2 65.4 mmHg (75.0-100.0) L Arterial Blood HCO3 29.4 mmol/L (22.0-26.0) H Arterial Blood Oxygen Saturation 89.8 % (95-100) *L Arterial Blood Base Excess 1.2 (-2-2) Joaquin Test Positive Osmolality 277 mOsm/kg (297-317) L Uric Acid 3.6 MG/DL (2.6-7.2) Phosphorus Level 3.4 MG/DL (2.5-4.9) Current Medications Medications (Trade) Dose Ordered Sig/Dolores Route PRN Reason Start Time Stop Time Status Last Admin Dose Admin Acetaminophen (Tylenol) 650 mg Q4H PRN ORAL Mild Pain (Pain Scale 1-3) 03/13/20 14:53 04/12/20 14:52 03/19/20 00:33 Acetaminophen (Tylenol) 650 mg Q4H PRN ORAL Temp >100 03/13/20 14:53 04/12/20 14:52 03/19/20 06:25 Azithromycin (Zithromax) 500 mg DAILY ORAL 03/14/20 09:00 03/20/20 10:59 03/19/20 08:39 Chlorhexidine Gluconate (Lucretia-Hex 2%) 1 applic DAILY@1999 TOPIC 03/13/20 20:00 06/11/20 19:59 03/18/20 20:31 Dextrose (Dextrose 50%) 25 ml Q30M PRN IV Hypoglycemia 03/16/20 09:30 06/14/20 09:29 Dextrose (Dextrose 50%) 50 ml Q30M PRN IV Hypoglycemia 03/16/20 09:30 7/29/20 09:29 Diphenhydramine HCl (Benadryl) 25 mg Q4H PRN ORAL moderate itching 03/13/20 14:54 04/12/20 14:53 Diphenhydramine HCl (Benadryl) 50 mg Q4H PRN ORAL SEVERE ITCHING 03/13/20 14:53 04/12/20 14:52 Docusate Sodium (Colace) 100 mg TWICE A DAY ORAL 03/19/20 09:00 04/18/20 08:59 03/19/20 08:39 Dopamine HCl/ Dextrose 250 ml @ 0 mls/hr Q24H IV 03/16/20 19:30 06/14/20 19:29 03/19/20 00:17 Enoxaparin Sodium (Lovenox) 40 mg DAILY SUBQ 03/19/20 09:00 04/03/20 08:59 03/19/20 08:40 Fentanyl Citrate 2500 mcg/Sodium Chloride 250 ml @ 0 mls/hr Q24H IV 03/15/20 18:30 03/22/20 18:29 03/19/20 09:15 Insulin Aspart (NovoLOG) Q6HR SUBQ 03/16/20 12:00 06/14/20 11:59 03/19/20 11:09 Levothyroxine Sodium (Synthroid) 100 mcg DAILY IV 03/18/20 12:00 04/17/20 11:59 Meropenem 1 gm/ Sodium Chloride 55 ml @ 110 mls/hr Q8HR IVPB 03/16/20 14:00 03/21/20 13:59 03/19/20 05:43 Methylprednisolone Sodium Succinate (Solu-MEDROL) 60 mg EVERY 12 HOURS IVP 03/17/20 11:00 06/15/20 10:59 03/19/20 08:39 Metoclopramide HCl (Reglan) 10 mg Q6H IVP 03/17/20 10:15 04/16/20 10:14 03/19/20 10:53 Mirtazapine (Remeron) 7.5 mg BEDTIME PRN ORAL SLEEP 03/13/20 14:55 06/11/20 14:54 Non-Formulary Medication (Non-Formulary Med) 1 ea DAILY IV 03/18/20 09:00 04/17/20 08:59 UNV Norepinephrine Bitartrate 16 mg/ Dextrose 500 ml @ 0 mls/hr Q24H IV 03/17/20 21:00 04/16/20 13:02 03/18/20 22:12 Polyethylene Glycol (Miralax) 17 gm BEDTIME ORAL 03/19/20 21:00 04/18/20 20:59 Propofol 100 ml @ 0 mls/hr Q24H IV 03/17/20 19:06 03/19/20 19:05 03/19/20 04:30 Rifaximin (Xifaxan) 550 mg EVERY 12 HOURS ORAL 03/18/20 09:00 03/25/20 08:59 03/19/20 08:39 Sodium Chloride 250 ml @ 30 mls/hr ONCE ONCE IV 03/19/20 10:30 03/19/20 18:49 03/19/20 10:53 Vasopressin 100 units/Sodium Chloride 100 ml @ 0 mls/hr Q24H PRN IV For hypotension 03/16/20 11:00 04/15/20 10:59 03/17/20 23:56 Jonathon Shah MD March 19, 2020 11:54
[2020-03-19] MEDS ORDERED: D5NS 1000ml IV ONE (14:07)
[2020-03-19] MEDS ORDERED: NS 275ml ONE ×3 (14:07→16:05)
[2020-03-19] MEDS ORDERED: Tubing IV Secondary IV ONE ×4 (14:07→16:05)
[2020-03-19] MEDS ORDERED: D5W 275ml ONE (14:21)
[2020-03-19] MEDS ORDERED: D5 1/2NS 1000ml IV ONE (14:21)
[2020-03-19] MEDS: Hydrocortisone 100mg Inj IV SCH ×2 (14:58→20:56)
[2020-03-19] MEDS: Vasopressin 100 UNITS in NS 95 ML IV PRN (18:03)
--- NOTE | 2020-03-19 18:49 | Pulmonolgy Critical Care Note ---
Critical Care - Asmt/Plan Assessment/Plan: Pulmonary CCM Progress Note HPI Patient is a 59 year old woman with significant obesity, admitted with bilateral lower extremity cellulitis, had complained of increased swelling and redness to both of her feet and legs Had elevated BNP on admission, persistent edema since admission, worsening hypoxia, LE DVT (right) negative for DVT. 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 COVID 19 positive, Pneumonia VQ no significant perfusion abnormality Prev LE dupplex negative High D Dimer level, on Lovenox PPX Being diuresed, persistent infiltrates on CXR, on ACPC, no tolerating Proning Worsening PaO2/PaO2, PC settings adjusted Hyponatremia, renal following Intubated, PEEP 16 Allergies: No Known Allergies Past Medical History: Obesity, Cirrhosis, Anemia, Anxiety, Cellulitis All Other Systems: negative except mentioned in HPI Physical Exam Vital Signs Noted General Appearance: Obese, Sedated,intubated Head: normocephalic, atraumatic Eyes: bilateral eye PERRL, bilateral eye EOMI ENT: EOM grossly intact, moist MM, no LN Respiratory: lungs clear, bilateral rhonchi Cardiovascular: regular rate, rhythm, HS1, HS2 RRR Gastrointestinal: Obese, soft non tender, ND Musculoskeletal: Significant edema and erythema bilateral lower extremity, patient also has crusting on both feet, Neurologic: seadted, no focalsigns Impression: Bilateral Lower Extremity Cellulitis Elevated NPA, severe bilateral edema Covid Pneumonia Worsening hypoxia, PaO2 less than 60 on 100%, elevated PCO2 Cirrhosis Splenomegaly Anemia Anxiety Plan IV Antibiotics per ID Dw ID - on trial of steroids Surgery following for wounds Hematology following for anemia, observing for Neutropenia Diurese PRN Renal following for hyponatremia Monitor labs Bronchodilators PPX - SCD, Lovenox Echocardiogram AC PC Proning PRN NS DC free water Supplement electrolytes Albuterol PRN SW Patients daughter Tri - discussed grave prognosis, suggested DNAR - will consider DW Phamacist - Remdesavir ordered Labs Noted Chest X-Ray: Cardiomegaly, left lower lobe atelectasis versus effusion, worsening infiltrates/congestion Subjective ROS Limited/Unobtainable: No Constitutional: Reports: no symptoms Gastrointestinal/Abdominal: Reports: no symptoms Musculoskeletal: Reports: other - SOB Allergies: Coded Allergies: No Known Allergies (Unverified , 02/29/20) ICU time 50 minutes Critical Care - Objective Last 24 Hour Vital Signs Date Time Temp Pulse Resp B/P (MAP) Pulse Ox O2 Delivery O2 Flow Rate FiO2 03/19/20 18:15 104 20 105/68 (80) 89 03/19/20 18:00 105/65 03/19/20 18:00 19 105/65 Mechanical Ventilator 03/19/20 18:00 105/65 03/19/20 18:00 19 Mechanical Ventilator 03/19/20 18:00 100.0 105 19 105/65 (78) 89 03/19/20 17:30 106 18 115/64 (81) 89 03/19/20 17:00 109/69 03/19/20 17:00 12 109/69 Mechanical Ventilator 03/19/20 17:00 109/69 03/19/20 17:00 12 Mechanical Ventilator 03/19/20 17:00 106 12 109/69 (82) 89 03/19/20 16:53 28 113/65 Mechanical Ventilator 03/19/20 16:44 100.0 03/19/20 16:30 107 12 118/70 (86) 89 03/19/20 16:30 106 28 100 03/19/20 16:15 110 13 117/74 (88) 88 03/19/20 16:11 100.5 122 29 126/86 (99) 89 03/19/20 16:00 100 03/19/20 16:00 Mechanical Ventilator 03/19/20 16:00 106 03/19/20 16:00 126/86 03/19/20 16:00 29 126/86 Mechanical Ventilator 03/19/20 16:00 126/86 03/19/20 16:00 29 Mechanical Ventilator 03/19/20 15:30 116 24 156/88 (110) 91 03/19/20 15:15 121 31 168/127 (141) 88 03/19/20 15:00 168/127 03/19/20 15:00 31 168/127 Mechanical Ventilator 03/19/20 15:00 168/127 03/19/20 15:00 31 Mechanical Ventilator 03/19/20 15:00 125 33 100 03/19/20 14:30 124 31 149/80 (103) 86 03/19/20 14:00 156/130 03/19/20 14:00 30 156/130 Mechanical Ventilator 03/19/20 14:00 156/130 03/19/20 14:00 30 Mechanical Ventilator 03/19/20 14:00 123 30 156/130 (139) 90 03/19/20 13:30 124 41 149/92 (111) 92 03/19/20 13:00 120 23 141/77 (98) 92 03/19/20 13:00 141/77 03/19/20 13:00 141/77 03/19/20 13:00 23 Mechanical Ventilator 03/19/20 12:30 117 28 150/60 (90) 91 03/19/20 12:17 122 35 100 03/19/20 12:00 100 03/19/20 12:00 146/103 03/19/20 12:00 146/103 03/19/20 12:00 26 Mechanical Ventilator 03/19/20 12:00 117 03/19/20 12:00 117 26 146/103 (117) 90 03/19/20 12:00 Mechanical Ventilator 03/19/20 11:48 132/79 03/19/20 11:30 115 20 142/66 (91) 92 03/19/20 11:18 85 19 145/90 (108) 93 03/19/20 11:00 145/90 03/19/20 11:00 145/90 03/19/20 11:00 19 Mechanical Ventilator 03/19/20 11:00 100.0 85 19 145/90 (108) 93 03/19/20 10:30 97 30 100 03/19/20 10:00 96 47 154/82 (106) 86 03/19/20 10:00 154/82 03/19/20 10:00 26 154/82 Mechanical Ventilator 03/19/20 10:00 154/82 03/19/20 10:00 26 Mechanical Ventilator 03/19/20 09:30 72 26 154/82 (106) 98 03/19/20 09:23 75 28 100 03/19/20 09:15 22 Mechanical Ventilator 03/19/20 09:00 72 26 129/71 (90) 98 03/19/20 09:00 129/71 03/19/20 09:00 26 129/71 Mechanical Ventilator 03/19/20 09:00 129/71 03/19/20 09:00 26 Mechanical Ventilator 03/19/20 08:30 72 26 136/67 (90) 98 03/19/20 08:00 100 03/19/20 08:00 100 03/19/20 08:00 131/71 03/19/20 08:00 22 131/71 Mechanical Ventilator 03/19/20 08:00 131/71 03/19/20 08:00 22 Mechanical Ventilator 03/19/20 08:00 74 22 131/71 (91) 97 03/19/20 08:00 Mechanical Ventilator 03/19/20 07:48 75 28 100 03/19/20 07:00 75 23 134/73 (93) 97 03/19/20 07:00 134/73 03/19/20 07:00 23 134/73 Mechanical Ventilator 100 03/19/20 07:00 134/73 03/19/20 07:00 23 Mechanical Ventilator 100 03/19/20 06:55 100.0 03/19/20 06:30 75 25 137/74 (95) 97 03/19/20 06:00 100.5 76 24 136/74 (94) 97 03/19/20 06:00 131/74 03/19/20 06:00 24 136/74 Mechanical Ventilator 100 03/19/20 06:00 131/74 03/19/20 06:00 24 Mechanical Ventilator 100 03/19/20 05:30 75 24 129/73 (91) 97 03/19/20 05:07 75 26 100 03/19/20 05:00 76 23 134/73 (93) 97 03/19/20 05:00 131/73 03/19/20 05:00 23 131/67 Mechanical Ventilator 100 03/19/20 05:00 131/73 03/19/20 05:00 23 Mechanical Ventilator 100 03/19/20 04:30 73 22 137/72 (93) 99 03/19/20 04:30 22 137/72 Mechanical Ventilator 100 03/19/20 04:00 100 03/19/20 04:00 75 03/19/20 04:00 101.0 75 27 131/67 (88) 99 03/19/20 04:00 131/67 03/19/20 04:00 27 131/67 Mechanical Ventilator 100 03/19/20 04:00 131/67 03/19/20 04:00 25 Mechanical Ventilator 100 03/19/20 04:00 Mechanical Ventilator 03/19/20 03:43 76 31 100 03/19/20 03:30 83 26 132/73 (92) 95 03/19/20 03:00 76 24 132/66 (88) 96 03/19/20 03:00 132/66 03/19/20 03:00 24 132/66 Mechanical Ventilator 100 03/19/20 03:00 132/66 03/19/20 03:00 24 Mechanical Ventilator 100 03/19/20 02:00 131/69 03/19/20 02:00 25 131/69 Mechanical Ventilator 100 03/19/20 02:00 131/69 03/19/20 02:00 25 Mechanical Ventilator 100 03/19/20 02:00 75 25 131/69 (89) 96 03/19/20 01:30 76 24 137/74 (95) 96 03/19/20 01:11 74 30 100 03/19/20 01:00 75 23 128/70 (89) 96 03/19/20 01:00 128/70 03/19/20 01:00 23 128/70 Mechanical Ventilator 100 03/19/20 01:00 128/70 03/19/20 01:00 23 Mechanical Ventilator 100 03/19/20 00:30 73 24 134/70 (91) 94 03/19/20 00:17 130/70 03/19/20 00:00 72 03/19/20 00:00 101.0 72 23 130/70 (90) 96 03/19/20 00:00 130/70 03/19/20 00:00 23 130/70 Mechanical Ventilator 100 03/19/20 00:00 130/70 03/19/20 00:00 23 Mechanical Ventilator 100 03/19/20 00:00 100 03/19/20 00:00 Mechanical Ventilator 03/18/20 23:30 73 25 136/70 (92) 95 03/18/20 23:11 73 27 100 03/18/20 23:00 72 22 134/65 (88) 95 03/18/20 23:00 134/65 03/18/20 23:00 22 134/65 Mechanical Ventilator 100 03/18/20 23:00 134/65 03/18/20 23:00 22 Mechanical Ventilator 100 03/18/20 22:30 72 25 124/72 (89) 95 03/18/20 22:12 113/63 03/18/20 22:00 73 25 113/63 (80) 95 03/18/20 22:00 113/63 03/18/20 22:00 25 113/63 Mechanical Ventilator 100 03/18/20 22:00 113/63 03/18/20 22:00 25 Mechanical Ventilator 100 03/18/20 21:05 70 26 100 03/18/20 21:00 70 25 122/68 (86) 98 03/18/20 21:00 122/68 03/18/20 21:00 25 122/68 Mechanical Ventilator 100 03/18/20 21:00 122/68 03/18/20 21:00 25 Mechanical Ventilator 100 03/18/20 20:30 22 105/55 Mechanical Ventilator 100 03/18/20 20:30 87 23 114/60 (78) 96 03/18/20 20:00 100 03/18/20 20:00 72 27 100 03/18/20 20:00 100.1 73 25 107/58 (74) 94 03/18/20 20:00 107/58 03/18/20 20:00 25 107/58 Mechanical Ventilator 100 03/18/20 20:00 107/58 03/18/20 20:00 25 Mechanical Ventilator 100 03/18/20 20:00 73 03/18/20 20:00 Mechanical Ventilator 03/18/20 19:30 72 26 112/63 (79) 96 03/18/20 19:00 111/58 03/18/20 19:00 26 111/58 Mechanical Ventilator 100 03/18/20 19:00 111/58 03/18/20 19:00 26 Mechanical Ventilator 100 03/18/20 19:00 69 26 111/58 (75) 97 Micro: Microbiology Date/Time Source Procedure Growth Status 03/16/20 20:50 Sputum Gram Stain - Final Resulted 03/16/20 20:50 Sputum Culture - Preliminary Gram Negative Bacillus 1 Gram Negative Bacillus 2 Nidhi Albicans Resulted Accucheck: 152 Critical Care - Subjective ROS Limited/Unobtainable: No Condition: critical Vent Support Breath Rate: 28 Vent Support Mode: AC Vent Tidal Volume: 400 Sputum Amount: Small PEEP: 16.0 PIP: 37 Tube Feeding Amount: 30 I&O: Intake and Output 03/18/20 03/19/20 19:00 07:00 Intake Total 1586.499 ml 1844.88801 ml Output Total 420 ml 800 ml Balance 1166.499 ml 1044.17643 ml Free Water 120 ml IV Total 1126.499 ml 1384.59996 ml Tube Feeding 240 ml 280 ml Other 100 ml 180 ml Output Urine Total 420 ml 800 ml ET-Tube: 7.5 ET Position: 21 Doron Carrillo MD March 19, 2020 18:49
[2020-03-19] MEDS: Dyna-Hex 2% Top Sol 2oz TOPIC SCH (20:56)
[2020-03-19] MEDS: Miralax 17gm pkt ORAL SCH (20:57)
[2020-03-19] MEDS: Solu-MEDROL 40mg Inj IVP SCH (20:57)
--- NOTE | 2020-03-19 21:07 | Hematology/Onc Progress Note ---
Assessment/Plan Assessment/Plan Assessment and Recs # Pancytopenia -- multiple etiologies could be related to underlying liver disease, medication-induced, infection versus viral syndrome versus underlying bone marrow cause, in this case, has severe liver disease and cirrhosis, HEP C++ , also cellulitis --> peripheral smear has been ordered and does not show significant abnormalities and none noted --> Medications have been reviewed --> Continue to monitor for improvement, trend cbc --> Hep panel and HIV are both negative --> US abd ordered to r/o cirrhosis and hepatosplenomegaly ->CIRRHOSIS IS NOTED , LARGE SPLEEN --> reverse isolation if ANC is <2000 --> Give neupogen if ANC <1000 --> Transfuse if hgb <7, with 1 unit prbc --> anemia panel ordered as well-->CW acd --> hgb trend 7-->7.1-->8.4-->8.2 -->8.7-->9.9 --> plt 145k-->152-->162k-->149k-->121k --> wbc 3.4-->3.5->3.9->4.4 --> abx: sameer/rifaximin # Cellulitis of the lower extremities --> continue abx as needed as per id --> Started on IV antibiotics-->azithro/cefepime --> as per surg recs, wound care # Ftt --> remains on mirtazapine # Elevated LFTS --> as per gi --> due to cirrhosis # respiratory failure --> s/p intubation 03/16 # Dvt ppx lovenox sq The timing of this note does not necessarily reflect the time of the patient was seen. Greatly appreciate consultation. Subjective Constitutional: Denies: no symptoms, chills, fever, malaise, weakness, other HEENT: Denies: no symptoms, eye pain, blurred vision, tearing, double vision, ear pain, ear discharge, nose pain, nose congestion, throat pain, throat swelling, mouth pain, mouth swelling, other Respiratory: Denies: no symptoms, cough, shortness of breath, SOB with excertion, SOB at rest, sputum, wheezing, other Gastrointestinal/Abdominal: Denies: no symptoms, abdomen distended, abdominal pain, black stools, tarry stools, blood in stool, constipated, diarrhea, difficulty swallowing, nausea, poor appetite, poor fluid intake, rectal bleeding , vomiting, other Genitourinary: Denies: no symptoms, burning, discharge, frequency, flank pain, hematuria, incontinence, pain, urgency, other Neurologic/Psychiatric: Denies: no symptoms, anxiety, depressed, emotional problems, headache, numbness, paresthesia, pre-existing deficit, seizure, tingling, tremors, weakness, other Endocrine: Denies: no symptoms, excessive sweating, flushing, intolerance to cold, intolerance to heat, increased hunger, increased thirst, increased urine, unexplained weight gain, unexplained weight loss, other Hematologic/Lymphatic: Denies: no symptoms, anemia, easy bleeding, easy bruising, adenopathy, other Allergies: Coded Allergies: No Known Allergies (Unverified , 02/29/20) Subjective 03/02 no events, no bleeding, hgb 7.1, no hemolysis 03/03 s/p blood, hgb improved to 8.4, stool ob negtive, on abx 03/05 asleep, no acute distress, hgb 8.2 03/06 remains comfortable, on abx, plt remains low 03/07 is on nonrebreather, no night sweats, labs are noted 03/08 labs reviewed, being diuresed, seen by cards, psych, labs noted 03/09 lasix adjusted, wbc remains low at 3.9, reviewed meds, smear 03/10 no night sweats, no bleeding, labs noted, smear noted 03/12 labs noted, none completed, have reordered, cellulitis better 03/13 is continuing with chest pain, cards aware, no further studies until covid neg 03/14 labs noted, no bleeding, diuresis as needed, hgb stable 03/15 alseep is cooperative, no bleeding, meds noted 03/16 no bleeding or chills, hgb 10.8, no night sweats, no major events 03/17 now intubated, no bleeding, labs noted, dw rn 03/19 remains intubated, no bleeding, labs noted, on pressors Objective Objective Current Medications Medications (Trade) Dose Ordered Sig/Dolores Route PRN Reason Start Time Stop Time Status Last Admin Dose Admin Acetaminophen (Tylenol) 650 mg Q4H PRN ORAL Temp >100 03/13/20 14:53 04/12/20 14:52 03/19/20 06:25 Acetaminophen (Tylenol) 650 mg Q4H PRN ORAL Mild Pain (Pain Scale 1-3) 03/13/20 14:53 04/12/20 14:52 03/19/20 16:14 Azithromycin (Zithromax) 500 mg DAILY ORAL 03/14/20 09:00 03/20/20 10:59 03/19/20 08:39 Chlorhexidine Gluconate (Lucretia-Hex 2%) 1 applic DAILY@2000 TOPIC 03/13/20 20:00 06/11/20 19:59 03/19/20 20:56 Dextrose (Dextrose 50%) 25 ml Q30M PRN IV Hypoglycemia 03/16/20 09:30 06/14/20 09:29 Dextrose (Dextrose 50%) 50 ml Q30M PRN IV Hypoglycemia 03/16/20 09:30 06/14/20 09:29 Diphenhydramine HCl (Benadryl) 25 mg Q4H PRN ORAL moderate itching 03/13/20 14:54 04/12/20 14:53 Diphenhydramine HCl (Benadryl) 50 mg Q4H PRN ORAL SEVERE ITCHING 03/13/20 14:53 04/12/20 14:52 Docusate Sodium (Colace) 100 mg TWICE A DAY ORAL 03/19/20 09:00 04/18/20 08:59 03/19/20 17:39 Dopamine HCl/ Dextrose 250 ml @ 0 mls/hr Q24H IV 03/16/20 19:30 06/14/20 19:29 03/19/20 11:48 Enoxaparin Sodium (Lovenox) 40 mg DAILY SUBQ 03/19/20 09:00 04/03/20 08:59 03/19/20 08:40 Fentanyl Citrate 2500 mcg/Sodium Chloride 250 ml @ 0 mls/hr Q24H IV 03/15/20 18:30 03/22/20 18:29 03/19/20 09:15 Hydrocortisone (Solu-CORTEF) 50 mg EVERY 8 HOURS IV 03/19/20 14:00 06/17/20 13:59 03/19/20 20:56 Insulin Aspart (NovoLOG) Q6HR SUBQ 03/16/20 12:00 06/14/20 11:59 03/19/20 17:40 Levothyroxine Sodium (Synthroid) 100 mcg DAILY IV 03/18/20 12:00 04/17/20 11:59 Meropenem 1 gm/ Sodium Chloride 55 ml @ 110 mls/hr Q8HR IVPB 03/16/20 14:00 03/21/20 13:59 03/19/20 14:59 Methylprednisolone Sodium Succinate (Solu-MEDROL) 50 mg EVERY 12 HOURS IVP 03/19/20 21:00 06/17/20 20:59 03/19/20 20:57 Metoclopramide HCl (Reglan) 10 mg Q6H IVP 03/17/20 10:15 04/16/20 10:14 03/19/20 20:56 Mirtazapine (Remeron) 7.5 mg BEDTIME PRN ORAL SLEEP 03/13/20 14:55 06/11/20 14:54 Non-Formulary Medication (Non-Formulary Med) 1 ea DAILY IV 03/18/20 09:00 04/17/20 08:59 UNV Norepinephrine Bitartrate 16 mg/ Dextrose 500 ml @ 0 mls/hr Q24H IV 03/17/20 21:00 04/16/20 13:02 03/18/20 22:12 Polyethylene Glycol (Miralax) 17 gm BEDTIME ORAL 03/19/20 21:00 04/18/20 20:59 03/19/20 20:57 Rifaximin (Xifaxan) 550 mg EVERY 12 HOURS ORAL 03/18/20 09:00 03/25/20 08:59 03/19/20 20:57 Vasopressin 100 units/Sodium Chloride 100 ml @ 0 mls/hr Q24H PRN IV For hypotension 03/16/20 11:00 04/15/20 10:59 03/19/20 18:03 Last 24 Hour Vital Signs Date Time Temp Pulse Resp B/P (MAP) Pulse Ox O2 Delivery O2 Flow Rate FiO2 03/19/20 20:00 100 03/19/20 20:00 Mechanical Ventilator 03/19/20 20:00 102 26 110/69 (83) 90 03/19/20 19:30 102 20 112/72 (85) 90 03/19/20 19:30 97 31 100 03/19/20 19:00 103 19 108/68 (81) 89 03/19/20 19:00 103 19 108/68 (81) 89 03/19/20 19:00 108/68 03/19/20 19:00 19 108/68 Mechanical Ventilator 03/19/20 19:00 108/68 03/19/20 19:00 19 Mechanical Ventilator 03/19/20 18:45 103 26 109/75 (86) 89 03/19/20 18:30 104 24 106/71 (83) 90 03/19/20 18:30 104 24 106/71 (83) 90 03/19/20 18:15 104 20 105/68 (80) 89 03/19/20 18:00 105/65 03/19/20 18:00 19 105/65 Mechanical Ventilator 03/19/20 18:00 105/65 03/19/20 18:00 19 Mechanical Ventilator 03/19/20 18:00 100.0 105 19 105/65 (78) 89 03/19/20 17:30 106 18 115/64 (81) 89 03/19/20 17:00 109/69 03/19/20 17:00 12 109/69 Mechanical Ventilator 03/19/20 17:00 109/69 03/19/20 17:00 12 Mechanical Ventilator 03/19/20 17:00 106 12 109/69 (82) 89 03/19/20 16:53 28 113/65 Mechanical Ventilator 03/19/20 16:44 100.0 03/19/20 16:30 107 12 118/70 (86) 89 03/19/20 16:30 106 28 100 03/19/20 16:15 110 13 117/74 (88) 88 03/19/20 16:11 100.5 122 29 126/86 (99) 89 03/19/20 16:00 100 03/19/20 16:00 Mechanical Ventilator 03/19/20 16:00 106 03/19/20 16:00 126/86 03/19/20 16:00 29 126/86 Mechanical Ventilator 03/19/20 16:00 126/86 03/19/20 16:00 29 Mechanical Ventilator 03/19/20 15:30 116 24 156/88 (110) 91 03/19/20 15:15 121 31 168/127 (141) 88 03/19/20 15:00 168/127 03/19/20 15:00 31 168/127 Mechanical Ventilator 03/19/20 15:00 168/127 03/19/20 15:00 31 Mechanical Ventilator 03/19/20 15:00 125 33 100 03/19/20 14:30 124 31 149/80 (103) 86 03/19/20 14:00 156/130 03/19/20 14:00 30 156/130 Mechanical Ventilator 03/19/20 14:00 156/130 03/19/20 14:00 30 Mechanical Ventilator 03/19/20 14:00 123 30 156/130 (139) 90 03/19/20 13:30 124 41 149/92 (111) 92 03/19/20 13:00 120 23 141/77 (98) 92 03/19/20 13:00 141/77 03/19/20 13:00 141/77 03/19/20 13:00 23 Mechanical Ventilator 03/19/20 12:30 117 28 150/60 (90) 91 03/19/20 12:17 122 35 100 03/19/20 12:00 100 03/19/20 12:00 146/103 03/19/20 12:00 146/103 03/19/20 12:00 26 Mechanical Ventilator 03/19/20 12:00 117 03/19/20 12:00 117 26 146/103 (117) 90 03/19/20 12:00 Mechanical Ventilator 03/19/20 11:48 132/79 03/19/20 11:30 115 20 142/66 (91) 92 03/19/20 11:18 85 19 145/90 (108) 93 03/19/20 11:00 145/90 03/19/20 11:00 145/90 03/19/20 11:00 19 Mechanical Ventilator 03/19/20 11:00 100.0 85 19 145/90 (108) 93 03/19/20 10:30 97 30 100 03/19/20 10:00 96 47 154/82 (106) 86 03/19/20 10:00 154/82 03/19/20 10:00 26 154/82 Mechanical Ventilator 03/19/20 10:00 154/82 03/19/20 10:00 26 Mechanical Ventilator 03/19/20 09:30 72 26 154/82 (106) 98 03/19/20 09:23 75 28 100 03/19/20 09:15 22 Mechanical Ventilator 03/19/20 09:00 72 26 129/71 (90) 98 03/19/20 09:00 129/71 03/19/20 09:00 26 129/71 Mechanical Ventilator 03/19/20 09:00 129/71 03/19/20 09:00 26 Mechanical Ventilator 03/19/20 08:30 72 26 136/67 (90) 98 03/19/20 08:00 100 03/19/20 08:00 100 03/19/20 08:00 131/71 03/19/20 08:00 22 131/71 Mechanical Ventilator 03/19/20 08:00 131/71 03/19/20 08:00 22 Mechanical Ventilator 03/19/20 08:00 74 22 131/71 (91) 97 03/19/20 08:00 Mechanical Ventilator 03/19/20 07:48 75 28 100 03/19/20 07:00 75 23 134/73 (93) 97 03/19/20 07:00 134/73 03/19/20 07:00 23 134/73 Mechanical Ventilator 100 03/19/20 07:00 134/73 03/19/20 07:00 23 Mechanical Ventilator 100 03/19/20 06:55 100.0 03/19/20 06:30 75 25 137/74 (95) 97 03/19/20 06:00 100.5 76 24 136/74 (94) 97 03/19/20 06:00 131/74 03/19/20 06:00 24 136/74 Mechanical Ventilator 100 03/19/20 06:00 131/74 03/19/20 06:00 24 Mechanical Ventilator 100 03/19/20 05:30 75 24 129/73 (91) 97 03/19/20 05:07 75 26 100 03/19/20 05:00 76 23 134/73 (93) 97 03/19/20 05:00 131/73 03/19/20 05:00 23 131/67 Mechanical Ventilator 100 03/19/20 05:00 131/73 03/19/20 05:00 23 Mechanical Ventilator 100 03/19/20 04:30 73 22 137/72 (93) 99 03/19/20 04:30 22 137/72 Mechanical Ventilator 100 03/19/20 04:00 100 03/19/20 04:00 75 03/19/20 04:00 101.0 75 27 131/67 (88) 99 03/19/20 04:00 131/67 03/19/20 04:00 27 131/67 Mechanical Ventilator 100 03/19/20 04:00 131/67 03/19/20 04:00 25 Mechanical Ventilator 100 03/19/20 04:00 Mechanical Ventilator 03/19/20 03:43 76 31 100 03/19/20 03:30 83 26 132/73 (92) 95 03/19/20 03:00 76 24 132/66 (88) 96 03/19/20 03:00 132/66 03/19/20 03:00 24 132/66 Mechanical Ventilator 100 03/19/20 03:00 132/66 03/19/20 03:00 24 Mechanical Ventilator 100 03/19/20 02:00 131/69 03/19/20 02:00 25 131/69 Mechanical Ventilator 100 03/19/20 02:00 131/69 03/19/20 02:00 25 Mechanical Ventilator 100 03/19/20 02:00 75 25 131/69 (89) 96 03/19/20 01:30 76 24 137/74 (95) 96 03/19/20 01:11 74 30 100 03/19/20 01:00 75 23 128/70 (89) 96 03/19/20 01:00 128/70 03/19/20 01:00 23 128/70 Mechanical Ventilator 100 03/19/20 01:00 128/70 03/19/20 01:00 23 Mechanical Ventilator 100 03/19/20 00:30 73 24 134/70 (91) 94 03/19/20 00:17 130/70 03/19/20 00:00 72 03/19/20 00:00 101.0 72 23 130/70 (90) 96 03/19/20 00:00 130/70 03/19/20 00:00 23 130/70 Mechanical Ventilator 100 03/19/20 00:00 130/70 03/19/20 00:00 23 Mechanical Ventilator 100 03/19/20 00:00 100 03/19/20 00:00 Mechanical Ventilator 03/18/20 23:30 73 25 136/70 (92) 95 03/18/20 23:11 73 27 100 03/18/20 23:00 72 22 134/65 (88) 95 03/18/20 23:00 134/65 03/18/20 23:00 22 134/65 Mechanical Ventilator 100 03/18/20 23:00 134/65 20 23:00 22 Mechanical Ventilator 100 03/18/20 22:30 72 25 124/72 (89) 95 03/18/20 22:12 113/63 03/18/20 22:00 73 25 113/63 (80) 95 20 22:00 113/63 03/18/20 22:00 25 113/63 Mechanical Ventilator 100 03/18/20 22:00 113/63 03/18/20 22:00 25 Mechanical Ventilator 100 03/18/20 21:05 70 26 100 03/18/20 21:00 70 25 122/68 (86) 98 03/18/20 21:00 122/68 03/18/20 21:00 25 122/68 Mechanical Ventilator 100 03/18/20 21:00 122/68 03/18/20 21:00 25 Mechanical Ventilator 100 03/18/20 20:30 22 105/55 Mechanical Ventilator 100 03/18/20 20:30 87 23 114/60 (78) 96 03/18/20 20:00 100 03/18/20 20:00 72 27 100 03/18/20 20:00 100.1 73 25 107/58 (74) 94 03/18/20 20:00 107/58 20 20:00 25 107/58 Mechanical Ventilator 100 03/18/20 20:00 107/58 03/18/20 20:00 25 Mechanical Ventilator 100 03/18/20 20:00 73 03/18/20 20:00 Mechanical Ventilator 03/18/20 19:30 72 26 112/63 (79) 96 03/18/20 19:00 111/58 20 19:00 26 111/58 Mechanical Ventilator 100 03/18/20 19:00 111/58 20 19:00 26 Mechanical Ventilator 100 03/18/20 19:00 69 26 111/58 (75) 97 20 18:30 70 26 121/57 (78) 97 20 18:00 121/62 5/2/20 18:00 21 121/62 Mechanical Ventilator 100 03/18/20 18:00 121/62 03/18/20 18:00 21 Mechanical Ventilator 100 03/18/20 18:00 70 26 124/60 (81) 96 03/18/20 17:30 70 21 125/62 (83) 96 03/18/20 17:00 120/61 03/18/20 17:00 22 120/61 Mechanical Ventilator 100 03/18/20 17:00 120/61 03/18/20 17:00 21 Mechanical Ventilator 100 03/18/20 17:00 69 22 124/64 (84) 96 03/18/20 16:55 69 26 100 03/18/20 16:30 69 43 126/63 (84) 96 03/18/20 16:00 100 03/18/20 16:00 Mechanical Ventilator 03/18/20 16:00 122/64 03/18/20 16:00 26 122/64 Mechanical Ventilator 100 03/18/20 16:00 122/64 03/18/20 16:00 26 Mechanical Ventilator 100 03/18/20 16:00 70 03/18/20 16:00 70 40 122/64 (83) 96 03/18/20 15:30 71 41 122/65 (84) 95 03/18/20 15:04 70 26 100 03/18/20 15:00 71 43 124/63 (83) 95 03/18/20 15:00 120/60 03/18/20 15:00 30 120/60 Mechanical Ventilator 100 03/18/20 15:00 120/60 03/18/20 15:00 24 Mechanical Ventilator 100 03/18/20 14:30 70 44 120/59 (79) 96 03/18/20 14:00 129/67 03/18/20 14:00 30 126/62 Mechanical Ventilator 100 03/18/20 14:00 126/60 03/18/20 14:00 26 Mechanical Ventilator 100 03/18/20 14:00 71 49 126/67 (86) 96 03/18/20 13:50 126/67 03/18/20 13:30 71 50 124/63 (83) 95 03/18/20 13:09 70 26 100 03/18/20 13:00 129/66 03/18/20 13:00 30 129/66 Mechanical Ventilator 100 03/18/20 13:00 129/66 03/18/20 13:00 71 46 129/64 (85) 95 03/18/20 12:00 98.6 71 51 126/67 (86) 95 03/18/20 12:00 100 03/18/20 12:00 129/66 03/18/20 12:00 30 129/66 Mechanical Ventilator 100 03/18/20 12:00 129/66 03/18/20 12:00 69 03/18/20 12:00 Mechanical Ventilator 03/18/20 11:30 69 48 126/66 (86) 95 03/18/20 11:13 69 26 100 03/18/20 11:12 30 129/84 Mechanical Ventilator 100 03/18/20 11:00 70 47 129/64 (85) 95 03/18/20 11:00 120/62 03/18/20 11:00 120/62 03/18/20 11:00 120/62 03/18/20 11:00 30 120/62 Mechanical Ventilator 100 03/18/20 11:00 30 120/62 Mechanical Ventilator 100 03/18/20 11:00 30 120/62 Mechanical Ventilator 100 03/18/20 11:00 120/62 03/18/20 11:00 120/62 03/18/20 11:00 120/62 03/18/20 10:00 67 34 125/60 (81) 96 03/18/20 10:00 125/60 03/18/20 10:00 30 125/60 Mechanical Ventilator 100 03/18/20 10:00 125/60 03/18/20 09:30 67 41 132/66 (88) 97 03/18/20 09:12 97 26 100 03/18/20 09:00 66 50 130/66 (87) 97 03/18/20 09:00 130/66 03/18/20 09:00 30 130/66 Mechanical Ventilator 100 03/18/20 09:00 130/66 03/18/20 08:30 67 50 132/65 (87) 96 03/18/20 08:00 100 03/18/20 08:00 129/69 03/18/20 08:00 30 129/69 Mechanical Ventilator 100 03/18/20 08:00 129/69 03/18/20 08:00 98.4 66 38 132/69 (90) 97 03/18/20 08:00 Mechanical Ventilator 03/18/20 08:00 68 03/18/20 07:15 68 45 129/68 (88) 95 03/18/20 07:10 67 26 100 03/18/20 07:00 66 32 130/69 (89) 96 03/18/20 07:00 129/68 03/18/20 07:00 129/68 03/18/20 06:37 35 125/64 Mechanical Ventilator 100 03/18/20 06:00 132/69 03/18/20 06:00 132/69 03/18/20 06:00 67 48 132/69 (90) 97 03/18/20 05:45 65 30 137/75 (95) 98 03/18/20 05:37 25 127/70 Mechanical Ventilator 100 03/18/20 05:30 65 26 127/70 (89) 97 03/18/20 05:15 66 24 129/70 (89) 97 03/18/20 05:00 125/66 03/18/20 05:00 123/66 03/18/20 05:00 65 23 123/66 (85) 97 03/18/20 04:45 72 22 122/65 (84) 98 03/18/20 04:39 68 26 100 03/18/20 04:37 26 114/56 Mechanical Ventilator 100 03/18/20 04:36 114/56 03/18/20 04:30 85 32 114/56 (75) 88 03/18/20 04:26 84 39 116/64 (81) 84 03/18/20 04:15 66 61 139/80 (99) 93 03/18/20 04:00 98.4 84 28 89/50 (63) 83 03/18/20 04:00 100 03/18/20 04:00 89/50 03/18/20 04:00 Mechanical Ventilator 03/18/20 03:45 64 27 91/51 (64) 96 03/18/20 03:30 68 28 87/50 (62) 96 03/18/20 03:30 87/50 03/18/20 03:20 69 26 100 03/18/20 03:15 66 26 125/63 (83) 97 03/18/20 03:10 26 135/69 Mechanical Ventilator 100 03/18/20 03:03 26 Mechanical Ventilator 100 03/18/20 03:01 66 03/18/20 03:00 66 26 135/69 (91) 97 03/18/20 03:00 135/69 03/18/20 02:45 66 26 135/67 (89) 97 03/18/20 02:30 65 26 135/66 (89) 97 03/18/20 02:15 65 26 135/66 (89) 97 03/18/20 02:10 26 134/67 Mechanical Ventilator 100 03/18/20 02:00 66 26 134/67 (89) 97 03/18/20 02:00 134/67 03/18/20 01:45 67 26 142/69 (93) 96 03/18/20 01:45 142/69 03/18/20 01:30 67 26 142/68 (92) 96 03/18/20 01:15 67 26 141/68 (92) 96 03/18/20 01:15 26 Mechanical Ventilator 100 03/18/20 01:10 26 141/69 Mechanical Ventilator 100 03/18/20 01:00 68 26 141/69 (93) 96 03/18/20 01:00 141/69 03/18/20 01:00 141/69 03/18/20 01:00 26 Mechanical Ventilator 100 03/18/20 00:45 69 26 142/69 (93) 96 03/18/20 00:35 68 27 100 03/18/20 00:30 68 26 143/69 (93) 96 03/18/20 00:15 68 26 143/69 (93) 96 03/18/20 00:10 26 146/72 Mechanical Ventilator 100 03/18/20 00:10 26 146/72 Mechanical Ventilator 100 03/18/20 00:00 Mechanical Ventilator 03/18/20 00:00 97.8 68 28 146/72 (96) 96 03/18/20 00:00 146/72 03/18/20 00:00 146/72 03/18/20 00:00 26 Mechanical Ventilator 100 03/17/20 23:45 69 26 146/70 (95) 96 03/17/20 23:30 69 26 145/70 (95) 96 03/17/20 23:18 68 03/17/20 23:15 69 27 147/70 (95) 96 03/17/20 23:15 69 28 100 03/17/20 23:10 27 147/70 Mechanical Ventilator 100 03/17/20 23:00 147/70 03/17/20 23:00 147/70 03/17/20 23:00 27 Mechanical Ventilator 100 03/17/20 23:00 69 27 147/70 (95) 96 03/17/20 22:45 69 26 145/70 (95) 96 03/17/20 22:30 69 27 146/70 (95) 96 03/17/20 22:15 72 26 149/71 (97) 96 03/17/20 22:10 26 159/77 Mechanical Ventilator 100 03/17/20 22:00 78 26 159/77 (104) 96 03/17/20 22:00 159/77 03/17/20 22:00 159/77 03/17/20 22:00 26 Mechanical Ventilator 100 03/17/20 21:45 74 35 148/72 (97) 96 03/17/20 21:30 63 31 136/68 (90) 96 03/17/20 21:15 68 26 124/60 (81) 93 03/17/20 21:10 24 150/70 Mechanical Ventilator 100 Intake and Output 03/18/20 03/19/20 19:00 07:00 Intake Total 1586.499 ml 1844.46467 ml Output Total 420 ml 800 ml Balance 1166.499 ml 1044.32754 ml Free Water 120 ml IV Total 1126.499 ml 1384.16319 ml Tube Feeding 240 ml 280 ml Other 100 ml 180 ml Output Urine Total 420 ml 800 ml Labs Test 03/17/20 09:00 03/18/20 06:50 03/19/20 05:15 03/19/20 09:45 White Blood Count 13.0 K/UL (4.8-10.8) 10.8 K/UL (4.8-10.8) 11.2 K/UL (4.8-10.8) Red Blood Count 3.23 M/UL (4.20-5.40) 3.06 M/UL (4.20-5.40) 3.05 M/UL (4.20-5.40) Hemoglobin 10.6 G/DL (12.0-16.0) 10.2 G/DL (12.0-16.0) 10.0 G/DL (12.0-16.0) Hematocrit 32.1 % (37.0-47.0) 30.2 % (37.0-47.0) 30.3 % (37.0-47.0) Mean Corpuscular Volume 100 FL (80-99) 99 FL (80-99) 99 FL (80-99) Mean Corpuscular Hemoglobin 33.0 PG (27.0-31.0) 33.2 PG (27.0-31.0) 32.9 PG (27.0-31.0) Mean Corpuscular Hemoglobin Concent 33.1 G/DL (32.0-36.0) 33.6 G/DL (32.0-36.0) 33.2 G/DL (32.0-36.0) Red Cell Distribution Width 16.8 % (11.6-14.8) 17.4 % (11.6-14.8) 16.6 % (11.6-14.8) Platelet Count 103 K/UL (150-450) 87 K/UL (150-450) 121 K/UL (150-450) Mean Platelet Volume 6.8 FL (6.5-10.1) 8.5 FL (6.5-10.1) 6.8 FL (6.5-10.1) Neutrophils (%) (Auto) 76.4 % (45.0-75.0) % (45.0-75.0) % (45.0-75.0) Lymphocytes (%) (Auto) 11.7 % (20.0-45.0) % (20.0-45.0) % (20.0-45.0) Monocytes (%) (Auto) 6.4 % (1.0-10.0) % (1.0-10.0) % (1.0-10.0) Eosinophils (%) (Auto) 4.7 % (0.0-3.0) % (0.0-3.0) % (0.0-3.0) Basophils (%) (Auto) 0.8 % (0.0-2.0) % (0.0-2.0) % (0.0-2.0) Sodium Level 126 MMOL/L (136-145) 123 MMOL/L (136-145) 124 MMOL/L (136-145) Potassium Level 3.6 MMOL/L (3.5-5.1) 4.1 MMOL/L (3.5-5.1) 5.3 MMOL/L (3.5-5.1) Chloride Level 93 MMOL/L (98-107) 89 MMOL/L (98-107) 92 MMOL/L (98-107) Carbon Dioxide Level 30 MMOL/L (21-32) 30 MMOL/L (21-32) 32 MMOL/L (21-32) Anion Gap 3 mmol/L (5-15) 4 mmol/L (5-15) 1 mmol/L (5-15) Blood Urea Nitrogen 9 mg/dL (7-18) 9 mg/dL (7-18) 11 mg/dL (7-18) Creatinine 0.8 MG/DL (0.55-1.30) 0.7 MG/DL (0.55-1.30) 0.7 MG/DL (0.55-1.30) Estimat Glomerular Filtration Rate > 60 mL/min (>60) > 60 mL/min (>60) > 60 mL/min (>60) Glucose Level 150 MG/DL (74-106) 176 MG/DL (74-106) 162 MG/DL (74-106) Calcium Level 7.2 MG/DL (8.5-10.1) 7.7 MG/DL (8.5-10.1) 7.2 MG/DL (8.5-10.1) Magnesium Level 1.7 MG/DL (1.8-2.4) 1.9 MG/DL (1.8-2.4) Total Bilirubin 1.7 MG/DL (0.2-1.0) 1.3 MG/DL (0.2-1.0) Direct Bilirubin 0.9 MG/DL (0.0-0.3) 0.7 MG/DL (0.0-0.3) Aspartate Amino Transf (AST/SGOT) 73 U/L (15-37) 66 U/L (15-37) Alanine Aminotransferase (ALT/SGPT) 19 U/L (12-78) 24 U/L (12-78) Alkaline Phosphatase 116 U/L (46-116) 145 U/L (46-116) Total Protein 8.2 G/DL (6.4-8.2) 8.9 G/DL (6.4-8.2) Albumin 1.6 G/DL (3.4-5.0) 1.7 G/DL (3.4-5.0) Globulin 6.6 g/dL 7.2 g/dL Albumin/Globulin Ratio 0.2 (1.0-2.7) 0.2 (1.0-2.7) Thyroid Stimulating Hormone (TSH) 14.208 uiU/mL (0.358-3.740) Differential Total Cells Counted 100 100 Neutrophils % (Manual) 88 % (45-75) 83 % (45-75) Lymphocytes % (Manual) 8 % (20-45) 12 % (20-45) Monocytes % (Manual) 4 % (1-10) 5 % (1-10) Eosinophils % (Manual) 0 % (0-3) 0 % (0-3) Basophils % (Manual) 0 % (0-2) 0 % (0-2) Band Neutrophils 0 % (0-8) 0 % (0-8) Platelet Estimate Decreased Decreased Platelet Morphology Normal Normal Anisocytosis 1+ 1+ Macrocytosis 1+ 1+ Triglycerides Level 80 MG/DL (30-150) Ammonia 96 umol/L (11-32) Urine Osmolality 457 mOsm/kg (429-449) Urine Random Sodium < 20 mmol/L (20-110) Test 03/19/20 10:18 03/19/20 10:20 03/19/20 15:00 03/19/20 18:30 Arterial Blood pH 7.257 (7.350-7.450) 7.406 (7.350-7.450) 7.340 (7.350-7.450) Arterial Blood Partial Pressure CO2 67.6 mmHg (35.0-45.0) 41.1 mmHg (35.0-45.0) 58.5 mmHg (35.0-45.0) Arterial Blood Partial Pressure O2 65.4 mmHg (75.0-100.0) 50.2 mmHg (75.0-100.0) 62.5 mmHg (75.0-100.0) Arterial Blood HCO3 29.4 mmol/L (22.0-26.0) 25.2 mmol/L (22.0-26.0) 30.9 mmol/L (22.0-26.0) Arterial Blood Oxygen Saturation 89.8 % (95-100) 85.6 % (95-100) 90.1 % (95-100) Arterial Blood Base Excess 1.2 (-2-2) 0.5 (-2-2) 4.1 (-2-2) Joaquin Test Positive Positive Positive Osmolality 277 mOsm/kg (297-317) Uric Acid 3.6 MG/DL (2.6-7.2) Phosphorus Level 3.4 MG/DL (2.5-4.9) Height (Feet): 5 Height (Inches): 1.00 Weight (Pounds): 237 Objective Physical Exam: Vitals: reviewed General: NAD HEENT: nc, at Neck: supple Chest: crackles b/l, mech breath sounds ++intubated Cardiovascular: RRR, no s3, s4 EXT ++ Significant edema and erythema bilateral lower extremity, patient also has blistering on both feet given the edema, whittish overcrust/crusting++ Neurologic: sedated Skin: other - As above Brett Mcclain MD March 19, 2020 21:07
--- NOTE | 2020-03-19 21:33 | Cardiology Progress Note ---
Assessment/Plan Assessment/Plan 1. Acute respiratory failure with hypoxic hypercapnea due to bilateral PNA caused by COVID-19 infection. 2. Septic shock on dopamine and levophed gtt, keep MAP at 65 mmHg and above. Normal LV function with LVEF at 60%. 3. Hyponatremia, serum Na up slightly. Continue lasix. 4. Bilateral lower extremity cellulitis with Pseudomonas aeruginosa in culture. 5. Pancytopenia, most likely due to hepatitis C virus infection/liver cirrhosis. Subjective Subjective Sinus rhythm at rate of 93. On levophed and dopamine gtt. Objective Last 24 Hour Vital Signs Date Time Temp Pulse Resp B/P (MAP) Pulse Ox O2 Delivery O2 Flow Rate FiO2 03/19/20 21:00 93 26 89/55 (66) 94 03/19/20 21:00 89/55 03/19/20 21:00 89/55 03/19/20 21:00 26 Mechanical Ventilator 100 03/19/20 20:30 96 19 89/51 (64) 78 03/19/20 20:00 100 03/19/20 20:00 110/61 03/19/20 20:00 110/61 03/19/20 20:00 26 Mechanical Ventilator 100 03/19/20 20:00 Mechanical Ventilator 03/19/20 20:00 102 26 110/69 (83) 90 03/19/20 19:30 102 20 112/72 (85) 90 03/19/20 19:30 97 31 100 03/19/20 19:00 103 19 108/68 (81) 89 03/19/20 19:00 103 19 108/68 (81) 89 03/19/20 19:00 108/68 03/19/20 19:00 19 108/68 Mechanical Ventilator 03/19/20 19:00 108/68 03/19/20 19:00 19 Mechanical Ventilator 03/19/20 18:45 103 26 109/75 (86) 89 03/19/20 18:30 104 24 106/71 (83) 90 03/19/20 18:30 104 24 106/71 (83) 90 03/19/20 18:15 104 20 105/68 (80) 89 03/19/20 18:00 105/65 03/19/20 18:00 19 105/65 Mechanical Ventilator 03/19/20 18:00 105/65 03/19/20 18:00 19 Mechanical Ventilator 03/19/20 18:00 100.0 105 19 105/65 (78) 89 03/19/20 17:30 106 18 115/64 (81) 89 03/19/20 17:00 109/69 03/19/20 17:00 12 109/69 Mechanical Ventilator 03/19/20 17:00 109/69 03/19/20 17:00 12 Mechanical Ventilator 03/19/20 17:00 106 12 109/69 (82) 89 03/19/20 16:53 28 113/65 Mechanical Ventilator 03/19/20 16:44 100.0 03/19/20 16:30 107 12 118/70 (86) 89 03/19/20 16:30 106 28 100 03/19/20 16:15 110 13 117/74 (88) 88 03/19/20 16:11 100.5 122 29 126/86 (99) 89 03/19/20 16:00 100 03/19/20 16:00 Mechanical Ventilator 03/19/20 16:00 106 03/19/20 16:00 126/86 03/19/20 16:00 29 126/86 Mechanical Ventilator 03/19/20 16:00 126/86 03/19/20 16:00 29 Mechanical Ventilator 03/19/20 15:30 116 24 156/88 (110) 91 03/19/20 15:15 121 31 168/127 (141) 88 03/19/20 15:00 168/127 03/19/20 15:00 31 168/127 Mechanical Ventilator 03/19/20 15:00 168/127 03/19/20 15:00 31 Mechanical Ventilator 03/19/20 15:00 125 33 100 03/19/20 14:30 124 31 149/80 (103) 86 03/19/20 14:00 156/130 03/19/20 14:00 30 156/130 Mechanical Ventilator 03/19/20 14:00 156/130 03/19/20 14:00 30 Mechanical Ventilator 03/19/20 14:00 123 30 156/130 (139) 90 03/19/20 13:30 124 41 149/92 (111) 92 03/19/20 13:00 120 23 141/77 (98) 92 03/19/20 13:00 141/77 03/19/20 13:00 141/77 03/19/20 13:00 23 Mechanical Ventilator 03/19/20 12:30 117 28 150/60 (90) 91 03/19/20 12:17 122 35 100 03/19/20 12:00 100 03/19/20 12:00 146/103 03/19/20 12:00 146/103 03/19/20 12:00 26 Mechanical Ventilator 03/19/20 12:00 117 03/19/20 12:00 117 26 146/103 (117) 90 03/19/20 12:00 Mechanical Ventilator 03/19/20 11:48 132/79 03/19/20 11:30 115 20 142/66 (91) 92 03/19/20 11:18 85 19 145/90 (108) 93 03/19/20 11:00 145/90 03/19/20 11:00 145/90 03/19/20 11:00 19 Mechanical Ventilator 03/19/20 11:00 100.0 85 19 145/90 (108) 93 03/19/20 10:30 97 30 100 03/19/20 10:00 96 47 154/82 (106) 86 03/19/20 10:00 154/82 03/19/20 10:00 26 154/82 Mechanical Ventilator 03/19/20 10:00 154/82 03/19/20 10:00 26 Mechanical Ventilator 03/19/20 09:30 72 26 154/82 (106) 98 03/19/20 09:23 75 28 100 03/19/20 09:15 22 Mechanical Ventilator 03/19/20 09:00 72 26 129/71 (90) 98 03/19/20 09:00 129/71 03/19/20 09:00 26 129/71 Mechanical Ventilator 03/19/20 09:00 129/71 03/19/20 09:00 26 Mechanical Ventilator 03/19/20 08:30 72 26 136/67 (90) 98 03/19/20 08:00 100 03/19/20 08:00 100 03/19/20 08:00 131/71 03/19/20 08:00 22 131/71 Mechanical Ventilator 03/19/20 08:00 131/71 03/19/20 08:00 22 Mechanical Ventilator 03/19/20 08:00 74 22 131/71 (91) 97 03/19/20 08:00 Mechanical Ventilator 03/19/20 07:48 75 28 100 03/19/20 07:00 75 23 134/73 (93) 97 03/19/20 07:00 134/73 03/19/20 07:00 23 134/73 Mechanical Ventilator 100 03/19/20 07:00 134/73 03/19/20 07:00 23 Mechanical Ventilator 100 03/19/20 06:55 100.0 03/19/20 06:30 75 25 137/74 (95) 97 03/19/20 06:00 100.5 76 24 136/74 (94) 97 03/19/20 06:00 131/74 03/19/20 06:00 24 136/74 Mechanical Ventilator 100 03/19/20 06:00 131/74 03/19/20 06:00 24 Mechanical Ventilator 100 03/19/20 05:30 75 24 129/73 (91) 97 03/19/20 05:07 75 26 100 03/19/20 05:00 76 23 134/73 (93) 97 03/19/20 05:00 131/73 03/19/20 05:00 23 131/67 Mechanical Ventilator 100 03/19/20 05:00 131/73 03/19/20 05:00 23 Mechanical Ventilator 100 03/19/20 04:30 73 22 137/72 (93) 99 03/19/20 04:30 22 137/72 Mechanical Ventilator 100 03/19/20 04:00 100 03/19/20 04:00 75 03/19/20 04:00 101.0 75 27 131/67 (88) 99 03/19/20 04:00 131/67 03/19/20 04:00 27 131/67 Mechanical Ventilator 100 03/19/20 04:00 131/67 03/19/20 04:00 25 Mechanical Ventilator 100 03/19/20 04:00 Mechanical Ventilator 03/19/20 03:43 76 31 100 03/19/20 03:30 83 26 132/73 (92) 95 03/19/20 03:00 76 24 132/66 (88) 96 03/19/20 03:00 132/66 03/19/20 03:00 24 132/66 Mechanical Ventilator 100 03/19/20 03:00 132/66 03/19/20 03:00 24 Mechanical Ventilator 100 03/19/20 02:00 131/69 03/19/20 02:00 25 131/69 Mechanical Ventilator 100 03/19/20 02:00 131/69 03/19/20 02:00 25 Mechanical Ventilator 100 03/19/20 02:00 75 25 131/69 (89) 96 03/19/20 01:30 76 24 137/74 (95) 96 03/19/20 01:11 74 30 100 03/19/20 01:00 75 23 128/70 (89) 96 03/19/20 01:00 128/70 03/19/20 01:00 23 128/70 Mechanical Ventilator 100 03/19/20 01:00 128/70 03/19/20 01:00 23 Mechanical Ventilator 100 03/19/20 00:30 73 24 134/70 (91) 94 03/19/20 00:17 130/70 03/19/20 00:00 72 03/19/20 00:00 101.0 72 23 130/70 (90) 96 03/19/20 00:00 130/70 03/19/20 00:00 23 130/70 Mechanical Ventilator 100 03/19/20 00:00 130/70 03/19/20 00:00 23 Mechanical Ventilator 100 03/19/20 00:00 100 03/19/20 00:00 Mechanical Ventilator 03/18/20 23:30 73 25 136/70 (92) 95 03/18/20 23:11 73 27 100 03/18/20 23:00 72 22 134/65 (88) 95 03/18/20 23:00 134/65 03/18/20 23:00 22 134/65 Mechanical Ventilator 100 03/18/20 23:00 134/65 03/18/20 23:00 22 Mechanical Ventilator 100 03/18/20 22:30 72 25 124/72 (89) 95 03/18/20 22:12 113/63 03/18/20 22:00 73 25 113/63 (80) 95 03/18/20 22:00 113/63 03/18/20 22:00 25 113/63 Mechanical Ventilator 100 03/18/20 22:00 113/63 03/18/20 22:00 25 Mechanical Ventilator 100 Intake and Output 03/18/20 03/19/20 19:00 07:00 Intake Total 1586.499 ml 1844.72002 ml Output Total 420 ml 800 ml Balance 1166.499 ml 1044.01376 ml Free Water 120 ml IV Total 1126.499 ml 1384.73193 ml Tube Feeding 240 ml 280 ml Other 100 ml 180 ml Output Urine Total 420 ml 800 ml 2D Echo: LVEF 60%, Mild LVH, Mild LAE, RVSP 44 mmHg, Mild MR, Normal LV Diast. Fxn Laboratory Tests Test 03/19/20 05:15 03/19/20 09:45 03/19/20 10:18 03/19/20 10:20 White Blood Count 11.2 K/UL (4.8-10.8) H Red Blood Count 3.05 M/UL (4.20-5.40) L Hemoglobin 10.0 G/DL (12.0-16.0) L Hematocrit 30.3 % (37.0-47.0) L Mean Corpuscular Volume 99 FL (80-99) Mean Corpuscular Hemoglobin 32.9 PG (27.0-31.0) H Mean Corpuscular Hemoglobin Concent 33.2 G/DL (32.0-36.0) Red Cell Distribution Width 16.6 % (11.6-14.8) H Platelet Count 121 K/UL (150-450) L Mean Platelet Volume 6.8 FL (6.5-10.1) Neutrophils (%) (Auto) % (45.0-75.0) Lymphocytes (%) (Auto) % (20.0-45.0) Monocytes (%) (Auto) % (1.0-10.0) Eosinophils (%) (Auto) % (0.0-3.0) Basophils (%) (Auto) % (0.0-2.0) Differential Total Cells Counted 100 Neutrophils % (Manual) 83 % (45-75) H Lymphocytes % (Manual) 12 % (20-45) L Monocytes % (Manual) 5 % (1-10) Eosinophils % (Manual) 0 % (0-3) Basophils % (Manual) 0 % (0-2) Band Neutrophils 0 % (0-8) Platelet Estimate Decreased L Platelet Morphology Normal Anisocytosis 1+ Macrocytosis 1+ Sodium Level 124 MMOL/L (136-145) L Potassium Level 5.3 MMOL/L (3.5-5.1) H Chloride Level 92 MMOL/L (98-107) L Carbon Dioxide Level 32 MMOL/L (21-32) Anion Gap 1 mmol/L (5-15) L Blood Urea Nitrogen 11 mg/dL (7-18) Creatinine 0.7 MG/DL (0.55-1.30) Estimat Glomerular Filtration Rate > 60 mL/min (>60) Glucose Level 162 MG/DL (74-106) H Calcium Level 7.2 MG/DL (8.5-10.1) L Magnesium Level 1.9 MG/DL (1.8-2.4) Total Bilirubin 1.3 MG/DL (0.2-1.0) H Direct Bilirubin 0.7 MG/DL (0.0-0.3) H Aspartate Amino Transf (AST/SGOT) 66 U/L (15-37) H Alanine Aminotransferase (ALT/SGPT) 24 U/L (12-78) Alkaline Phosphatase 145 U/L (46-116) H Ammonia 96 umol/L (11-32) H Total Protein 8.9 G/DL (6.4-8.2) H Albumin 1.7 G/DL (3.4-5.0) L Globulin 7.2 g/dL Albumin/Globulin Ratio 0.2 (1.0-2.7) L Urine Osmolality 457 mOsm/kg (429-449) H Urine Random Sodium < 20 mmol/L (20-110) L Arterial Blood pH 7.257 (7.350-7.450) Arterial Blood Partial Pressure CO2 67.6 mmHg (35.0-45.0) *H Arterial Blood Partial Pressure O2 65.4 mmHg (75.0-100.0) L Arterial Blood HCO3 29.4 mmol/L (22.0-26.0) H Arterial Blood Oxygen Saturation 89.8 % (95-100) *L Arterial Blood Base Excess 1.2 (-2-2) Joaquin Test Positive Osmolality 277 mOsm/kg (297-317) L Uric Acid 3.6 MG/DL (2.6-7.2) Phosphorus Level 3.4 MG/DL (2.5-4.9) Test 03/19/20 15:00 03/19/20 18:30 Arterial Blood pH 7.406 (7.350-7.450) 7.340 (7.350-7.450) Arterial Blood Partial Pressure CO2 41.1 mmHg (35.0-45.0) 58.5 mmHg (35.0-45.0) *H Arterial Blood Partial Pressure O2 50.2 mmHg (75.0-100.0) L 62.5 mmHg (75.0-100.0) L Arterial Blood HCO3 25.2 mmol/L (22.0-26.0) 30.9 mmol/L (22.0-26.0) H Arterial Blood Oxygen Saturation 85.6 % (95-100) *L 90.1 % (95-100) L Arterial Blood Base Excess 0.5 (-2-2) 4.1 (-2-2) H Joaquin Test Positive Positive Objective HEENT: Atraumatic and normocephalic. Anicteric. Intubated. NECK: JVP cannot be assessed. No carotid bruit. + ETT. CARDIOVASCULAR: Normal S1, S2. Regular rate and rhythm. No murmurs, gallops, or rubs. PMI is at fourth intercostal space at left midclavicular line. LUNGS: Bibasilar crackles. ABDOMEN: Soft, nontender, and nondistended. No hepatosplenomegaly. Positive bowel sounds. EXTREMITIES: A 2+ edema bilaterally associated with erythema with blistering and crust formation of both feet. Berto Gonzalez MD March 19, 2020 21:33
--- NOTE | 2020-03-19 21:43 | Surgery Progress Note ---
Surgery Progress Note Subjective Additional Comments Leukocytosis. Hemoglobin stable. Respiratory status worsening. PEEP 16 FiO2 100% Tube feeds Ill-appearing nonresponsive on support Objective Last 24 Hour Vital Signs Date Time Temp Pulse Resp B/P (MAP) Pulse Ox O2 Delivery O2 Flow Rate FiO2 03/19/20 21:37 119/64 03/19/20 21:00 93 26 89/55 (66) 94 03/19/20 21:00 89/55 03/19/20 21:00 89/55 03/19/20 21:00 26 Mechanical Ventilator 100 03/19/20 20:30 96 19 89/51 (64) 78 03/19/20 20:00 100 03/19/20 20:00 110/61 03/19/20 20:00 110/61 03/19/20 20:00 26 Mechanical Ventilator 100 03/19/20 20:00 Mechanical Ventilator 03/19/20 20:00 102 26 110/69 (83) 90 03/19/20 19:30 102 20 112/72 (85) 90 03/19/20 19:30 97 31 100 03/19/20 19:00 103 19 108/68 (81) 89 03/19/20 19:00 103 19 108/68 (81) 89 03/19/20 19:00 108/68 03/19/20 19:00 19 108/68 Mechanical Ventilator 03/19/20 19:00 108/68 03/19/20 19:00 19 Mechanical Ventilator 03/19/20 18:45 103 26 109/75 (86) 89 03/19/20 18:30 104 24 106/71 (83) 90 03/19/20 18:30 104 24 106/71 (83) 90 03/19/20 18:15 104 20 105/68 (80) 89 03/19/20 18:00 105/65 03/19/20 18:00 19 105/65 Mechanical Ventilator 03/19/20 18:00 105/65 03/19/20 18:00 19 Mechanical Ventilator 03/19/20 18:00 100.0 105 19 105/65 (78) 89 03/19/20 17:30 106 18 115/64 (81) 89 03/19/20 17:00 109/69 03/19/20 17:00 12 109/69 Mechanical Ventilator 03/19/20 17:00 109/69 03/19/20 17:00 12 Mechanical Ventilator 03/19/20 17:00 106 12 109/69 (82) 89 03/19/20 16:53 28 113/65 Mechanical Ventilator 03/19/20 16:44 100.0 03/19/20 16:30 107 12 118/70 (86) 89 03/19/20 16:30 106 28 100 03/19/20 16:15 110 13 117/74 (88) 88 03/19/20 16:11 100.5 122 29 126/86 (99) 89 03/19/20 16:00 100 03/19/20 16:00 Mechanical Ventilator 03/19/20 16:00 106 03/19/20 16:00 126/86 03/19/20 16:00 29 126/86 Mechanical Ventilator 03/19/20 16:00 126/86 03/19/20 16:00 29 Mechanical Ventilator 03/19/20 15:30 116 24 156/88 (110) 91 03/19/20 15:15 121 31 168/127 (141) 88 03/19/20 15:00 168/127 03/19/20 15:00 31 168/127 Mechanical Ventilator 03/19/20 15:00 168/127 03/19/20 15:00 31 Mechanical Ventilator 03/19/20 15:00 125 33 100 03/19/20 14:30 124 31 149/80 (103) 86 03/19/20 14:00 156/130 03/19/20 14:00 30 156/130 Mechanical Ventilator 03/19/20 14:00 156/130 03/19/20 14:00 30 Mechanical Ventilator 03/19/20 14:00 123 30 156/130 (139) 90 03/19/20 13:30 124 41 149/92 (111) 92 03/19/20 13:00 120 23 141/77 (98) 92 03/19/20 13:00 141/77 03/19/20 13:00 141/77 03/19/20 13:00 23 Mechanical Ventilator 03/19/20 12:30 117 28 150/60 (90) 91 03/19/20 12:17 122 35 100 03/19/20 12:00 100 03/19/20 12:00 146/103 03/19/20 12:00 146/103 03/19/20 12:00 26 Mechanical Ventilator 03/19/20 12:00 117 03/19/20 12:00 117 26 146/103 (117) 90 03/19/20 12:00 Mechanical Ventilator 03/19/20 11:48 132/79 03/19/20 11:30 115 20 142/66 (91) 92 03/19/20 11:18 85 19 145/90 (108) 93 03/19/20 11:00 145/90 03/19/20 11:00 145/90 03/19/20 11:00 19 Mechanical Ventilator 03/19/20 11:00 100.0 85 19 145/90 (108) 93 03/19/20 10:30 97 30 100 03/19/20 10:00 96 47 154/82 (106) 86 03/19/20 10:00 154/82 03/19/20 10:00 26 154/82 Mechanical Ventilator 03/19/20 10:00 154/82 03/19/20 10:00 26 Mechanical Ventilator 03/19/20 09:30 72 26 154/82 (106) 98 03/19/20 09:23 75 28 100 03/19/20 09:15 22 Mechanical Ventilator 03/19/20 09:00 72 26 129/71 (90) 98 03/19/20 09:00 129/71 03/19/20 09:00 26 129/71 Mechanical Ventilator 03/19/20 09:00 129/71 03/19/20 09:00 26 Mechanical Ventilator 03/19/20 08:30 72 26 136/67 (90) 98 03/19/20 08:00 100 03/19/20 08:00 100 03/19/20 08:00 131/71 03/19/20 08:00 22 131/71 Mechanical Ventilator 03/19/20 08:00 131/71 03/19/20 08:00 22 Mechanical Ventilator 03/19/20 08:00 74 22 131/71 (91) 97 03/19/20 08:00 Mechanical Ventilator 03/19/20 07:48 75 28 100 03/19/20 07:00 75 23 134/73 (93) 97 03/19/20 07:00 134/73 03/19/20 07:00 23 134/73 Mechanical Ventilator 100 03/19/20 07:00 134/73 03/19/20 07:00 23 Mechanical Ventilator 100 03/19/20 06:55 100.0 03/19/20 06:30 75 25 137/74 (95) 97 03/19/20 06:00 100.5 76 24 136/74 (94) 97 03/19/20 06:00 131/74 03/19/20 06:00 24 136/74 Mechanical Ventilator 100 03/19/20 06:00 131/74 03/19/20 06:00 24 Mechanical Ventilator 100 03/19/20 05:30 75 24 129/73 (91) 97 03/19/20 05:07 75 26 100 03/19/20 05:00 76 23 134/73 (93) 97 03/19/20 05:00 131/73 03/19/20 05:00 23 131/67 Mechanical Ventilator 100 03/19/20 05:00 131/73 03/19/20 05:00 23 Mechanical Ventilator 100 03/19/20 04:30 73 22 137/72 (93) 99 03/19/20 04:30 22 137/72 Mechanical Ventilator 100 03/19/20 04:00 100 03/19/20 04:00 75 03/19/20 04:00 101.0 75 27 131/67 (88) 99 03/19/20 04:00 131/67 03/19/20 04:00 27 131/67 Mechanical Ventilator 100 03/19/20 04:00 131/67 03/19/20 04:00 25 Mechanical Ventilator 100 03/19/20 04:00 Mechanical Ventilator 03/19/20 03:43 76 31 100 03/19/20 03:30 83 26 132/73 (92) 95 03/19/20 03:00 76 24 132/66 (88) 96 03/19/20 03:00 132/66 03/19/20 03:00 24 132/66 Mechanical Ventilator 100 03/19/20 03:00 132/66 03/19/20 03:00 24 Mechanical Ventilator 100 03/19/20 02:00 131/69 03/19/20 02:00 25 131/69 Mechanical Ventilator 100 03/19/20 02:00 131/69 03/19/20 02:00 25 Mechanical Ventilator 100 03/19/20 02:00 75 25 131/69 (89) 96 03/19/20 01:30 76 24 137/74 (95) 96 03/19/20 01:11 74 30 100 03/19/20 01:00 75 23 128/70 (89) 96 03/19/20 01:00 128/70 03/19/20 01:00 23 128/70 Mechanical Ventilator 100 03/19/20 01:00 128/70 03/19/20 01:00 23 Mechanical Ventilator 100 03/19/20 00:30 73 24 134/70 (91) 94 03/19/20 00:17 130/70 03/19/20 00:00 72 03/19/20 00:00 101.0 72 23 130/70 (90) 96 03/19/20 00:00 130/70 03/19/20 00:00 23 130/70 Mechanical Ventilator 100 03/19/20 00:00 130/70 03/19/20 00:00 23 Mechanical Ventilator 100 03/19/20 00:00 100 03/19/20 00:00 Mechanical Ventilator 03/18/20 23:30 73 25 136/70 (92) 95 03/18/20 23:11 73 27 100 03/18/20 23:00 72 22 134/65 (88) 95 03/18/20 23:00 134/65 03/18/20 23:00 22 134/65 Mechanical Ventilator 100 03/18/20 23:00 134/65 03/18/20 23:00 22 Mechanical Ventilator 100 03/18/20 22:30 72 25 124/72 (89) 95 03/18/20 22:12 113/63 03/18/20 22:00 73 25 113/63 (80) 95 03/18/20 22:00 113/63 03/18/20 22:00 25 113/63 Mechanical Ventilator 100 03/18/20 22:00 113/63 03/18/20 22:00 25 Mechanical Ventilator 100 I&O Intake and Output 03/18/20 03/19/20 19:00 07:00 Intake Total 1586.499 ml 1844.41658 ml Output Total 420 ml 800 ml Balance 1166.499 ml 1044.35721 ml Free Water 120 ml IV Total 1126.499 ml 1384.28212 ml Tube Feeding 240 ml 280 ml Other 100 ml 180 ml Output Urine Total 420 ml 800 ml Dressing: dry Wound: other Drains: other Cardiovascular: RSR Respiratory: decreased breath sounds Abdomen: soft, non-distended, decreased bowel sounds Extremities: edema, no cyanosis, other Laboratory Tests Test 03/19/20 05:15 03/19/20 09:45 03/19/20 10:18 03/19/20 10:20 White Blood Count 11.2 K/UL (4.8-10.8) H Red Blood Count 3.05 M/UL (4.20-5.40) L Hemoglobin 10.0 G/DL (12.0-16.0) L Hematocrit 30.3 % (37.0-47.0) L Mean Corpuscular Volume 99 FL (80-99) Mean Corpuscular Hemoglobin 32.9 PG (27.0-31.0) H Mean Corpuscular Hemoglobin Concent 33.2 G/DL (32.0-36.0) Red Cell Distribution Width 16.6 % (11.6-14.8) H Platelet Count 121 K/UL (150-450) L Mean Platelet Volume 6.8 FL (6.5-10.1) Neutrophils (%) (Auto) % (45.0-75.0) Lymphocytes (%) (Auto) % (20.0-45.0) Monocytes (%) (Auto) % (1.0-10.0) Eosinophils (%) (Auto) % (0.0-3.0) Basophils (%) (Auto) % (0.0-2.0) Differential Total Cells Counted 100 Neutrophils % (Manual) 83 % (45-75) H Lymphocytes % (Manual) 12 % (20-45) L Monocytes % (Manual) 5 % (1-10) Eosinophils % (Manual) 0 % (0-3) Basophils % (Manual) 0 % (0-2) Band Neutrophils 0 % (0-8) Platelet Estimate Decreased L Platelet Morphology Normal Anisocytosis 1+ Macrocytosis 1+ Sodium Level 124 MMOL/L (136-145) L Potassium Level 5.3 MMOL/L (3.5-5.1) H Chloride Level 92 MMOL/L (98-107) L Carbon Dioxide Level 32 MMOL/L (21-32) Anion Gap 1 mmol/L (5-15) L Blood Urea Nitrogen 11 mg/dL (7-18) Creatinine 0.7 MG/DL (0.55-1.30) Estimat Glomerular Filtration Rate > 60 mL/min (>60) Glucose Level 162 MG/DL (74-106) H Calcium Level 7.2 MG/DL (8.5-10.1) L Magnesium Level 1.9 MG/DL (1.8-2.4) Total Bilirubin 1.3 MG/DL (0.2-1.0) H Direct Bilirubin 0.7 MG/DL (0.0-0.3) H Aspartate Amino Transf (AST/SGOT) 66 U/L (15-37) H Alanine Aminotransferase (ALT/SGPT) 24 U/L (12-78) Alkaline Phosphatase 145 U/L (46-116) H Ammonia 96 umol/L (11-32) H Total Protein 8.9 G/DL (6.4-8.2) H Albumin 1.7 G/DL (3.4-5.0) L Globulin 7.2 g/dL Albumin/Globulin Ratio 0.2 (1.0-2.7) L Urine Osmolality 457 mOsm/kg (429-449) H Urine Random Sodium < 20 mmol/L (20-110) L Arterial Blood pH 7.257 (7.350-7.450) Arterial Blood Partial Pressure CO2 67.6 mmHg (35.0-45.0) *H Arterial Blood Partial Pressure O2 65.4 mmHg (75.0-100.0) L Arterial Blood HCO3 29.4 mmol/L (22.0-26.0) H Arterial Blood Oxygen Saturation 89.8 % (95-100) *L Arterial Blood Base Excess 1.2 (-2-2) Joaquin Test Positive Osmolality 277 mOsm/kg (297-317) L Uric Acid 3.6 MG/DL (2.6-7.2) Phosphorus Level 3.4 MG/DL (2.5-4.9) Test 03/19/20 15:00 03/19/20 18:30 Arterial Blood pH 7.406 (7.350-7.450) 7.340 (7.350-7.450) Arterial Blood Partial Pressure CO2 41.1 mmHg (35.0-45.0) 58.5 mmHg (35.0-45.0) *H Arterial Blood Partial Pressure O2 50.2 mmHg (75.0-100.0) L 62.5 mmHg (75.0-100.0) L Arterial Blood HCO3 25.2 mmol/L (22.0-26.0) 30.9 mmol/L (22.0-26.0) H Arterial Blood Oxygen Saturation 85.6 % (95-100) *L 90.1 % (95-100) L Arterial Blood Base Excess 0.5 (-2-2) 4.1 (-2-2) H Joaquin Test Positive Positive Plan Problems: (1) Cellulitis Assessment & Plan: bilateral lower extremity cellulitis / edema chronic venous status changes dermatitis no abscess no purulent drainage ulcerations forming. keep lower extremity elevated while in bed apply skin protectant / moisturizing cream daily okay to shower okay to wrap soft after cream abx as per ID for cellulitis okay for diet duplex ordered trend labs will follow with recs thank you No evidence of deep venous thrombosis involving the visualized veins of the RIGHT lower extremity. refused eval of left COVID ++ cxr noted cont current supportive care improving labs stable improving slowly wean pressors as tolerated Patient is acutely worsened intubated on vent support 2 pressors now worsening labs worsening Prognosis is guarded we will continue with maximal support efforts (2) COVID-19 Assessment & Plan: see above Theron Sotomayor March 19, 2020 21:43
--- NOTE | 2020-03-19 22:24 | General Progress Note ---
Assessment/Plan Problem List: (1) Cellulitis ICD Codes: L03.90 - Cellulitis, unspecified SNOMED: 587690047 Qualifiers: Qualified Codes: L03.119 - Cellulitis of unspecified part of limb Status: progressing, unchanged Assessment/Plan: no change no fever still low na poor prognosis hyponatramia is getting worse.treatment per dr valera elevated tsh pna sepsis anemia cirrhosis Subjective ROS Limited/Unobtainable: Yes Allergies: Coded Allergies: No Known Allergies (Unverified , 02/29/20) Objective Last 24 Hour Vital Signs Date Time Temp Pulse Resp B/P (MAP) Pulse Ox O2 Delivery O2 Flow Rate FiO2 03/19/20 21:37 119/64 03/19/20 21:00 93 26 89/55 (66) 94 03/19/20 21:00 89/55 03/19/20 21:00 89/55 03/19/20 21:00 26 Mechanical Ventilator 100 03/19/20 20:30 96 19 89/51 (64) 78 03/19/20 20:00 100 03/19/20 20:00 110/61 03/19/20 20:00 110/61 03/19/20 20:00 26 Mechanical Ventilator 100 03/19/20 20:00 Mechanical Ventilator 03/19/20 20:00 102 26 110/69 (83) 90 03/19/20 19:30 102 20 112/72 (85) 90 03/19/20 19:30 97 31 100 03/19/20 19:00 103 19 108/68 (81) 89 03/19/20 19:00 103 19 108/68 (81) 89 03/19/20 19:00 108/68 03/19/20 19:00 19 108/68 Mechanical Ventilator 03/19/20 19:00 108/68 03/19/20 19:00 19 Mechanical Ventilator 03/19/20 18:45 103 26 109/75 (86) 89 03/19/20 18:30 104 24 106/71 (83) 90 03/19/20 18:30 104 24 106/71 (83) 90 03/19/20 18:15 104 20 105/68 (80) 89 03/19/20 18:00 105/65 03/19/20 18:00 19 105/65 Mechanical Ventilator 03/19/20 18:00 105/65 03/19/20 18:00 19 Mechanical Ventilator 03/19/20 18:00 100.0 105 19 105/65 (78) 89 03/19/20 17:30 106 18 115/64 (81) 89 03/19/20 17:00 109/69 03/19/20 17:00 12 109/69 Mechanical Ventilator 03/19/20 17:00 109/69 03/19/20 17:00 12 Mechanical Ventilator 03/19/20 17:00 106 12 109/69 (82) 89 03/19/20 16:53 28 113/65 Mechanical Ventilator 03/19/20 16:44 100.0 03/19/20 16:30 107 12 118/70 (86) 89 03/19/20 16:30 106 28 100 03/19/20 16:15 110 13 117/74 (88) 88 03/19/20 16:11 100.5 122 29 126/86 (99) 89 03/19/20 16:00 100 03/19/20 16:00 Mechanical Ventilator 03/19/20 16:00 106 03/19/20 16:00 126/86 03/19/20 16:00 29 126/86 Mechanical Ventilator 03/19/20 16:00 126/86 03/19/20 16:00 29 Mechanical Ventilator 03/19/20 15:30 116 24 156/88 (110) 91 03/19/20 15:15 121 31 168/127 (141) 88 03/19/20 15:00 168/127 03/19/20 15:00 31 168/127 Mechanical Ventilator 03/19/20 15:00 168/127 03/19/20 15:00 31 Mechanical Ventilator 03/19/20 15:00 125 33 100 03/19/20 14:30 124 31 149/80 (103) 86 03/19/20 14:00 156/130 03/19/20 14:00 30 156/130 Mechanical Ventilator 03/19/20 14:00 156/130 03/19/20 14:00 30 Mechanical Ventilator 03/19/20 14:00 123 30 156/130 (139) 90 03/19/20 13:30 124 41 149/92 (111) 92 03/19/20 13:00 120 23 141/77 (98) 92 03/19/20 13:00 141/77 03/19/20 13:00 141/77 03/19/20 13:00 23 Mechanical Ventilator 03/19/20 12:30 117 28 150/60 (90) 91 03/19/20 12:17 122 35 100 03/19/20 12:00 100 03/19/20 12:00 146/103 03/19/20 12:00 146/103 03/19/20 12:00 26 Mechanical Ventilator 03/19/20 12:00 117 03/19/20 12:00 117 26 146/103 (117) 90 03/19/20 12:00 Mechanical Ventilator 03/19/20 11:48 132/79 03/19/20 11:30 115 20 142/66 (91) 92 03/19/20 11:18 85 19 145/90 (108) 93 03/19/20 11:00 145/90 03/19/20 11:00 145/90 03/19/20 11:00 19 Mechanical Ventilator 03/19/20 11:00 100.0 85 19 145/90 (108) 93 03/19/20 10:30 97 30 100 03/19/20 10:00 96 47 154/82 (106) 86 03/19/20 10:00 154/82 03/19/20 10:00 26 154/82 Mechanical Ventilator 03/19/20 10:00 154/82 03/19/20 10:00 26 Mechanical Ventilator 03/19/20 09:30 72 26 154/82 (106) 98 03/19/20 09:23 75 28 100 03/19/20 09:15 22 Mechanical Ventilator 03/19/20 09:00 72 26 129/71 (90) 98 03/19/20 09:00 129/71 03/19/20 09:00 26 129/71 Mechanical Ventilator 03/19/20 09:00 129/71 03/19/20 09:00 26 Mechanical Ventilator 03/19/20 08:30 72 26 136/67 (90) 98 03/19/20 08:00 100 03/19/20 08:00 100 03/19/20 08:00 131/71 03/19/20 08:00 22 131/71 Mechanical Ventilator 03/19/20 08:00 131/71 03/19/20 08:00 22 Mechanical Ventilator 03/19/20 08:00 74 22 131/71 (91) 97 03/19/20 08:00 Mechanical Ventilator 03/19/20 07:48 75 28 100 03/19/20 07:00 75 23 134/73 (93) 97 03/19/20 07:00 134/73 03/19/20 07:00 23 134/73 Mechanical Ventilator 100 03/19/20 07:00 134/73 03/19/20 07:00 23 Mechanical Ventilator 100 03/19/20 06:55 100.0 03/19/20 06:30 75 25 137/74 (95) 97 03/19/20 06:00 100.5 76 24 136/74 (94) 97 03/19/20 06:00 131/74 03/19/20 06:00 24 136/74 Mechanical Ventilator 100 03/19/20 06:00 131/74 03/19/20 06:00 24 Mechanical Ventilator 100 03/19/20 05:30 75 24 129/73 (91) 97 03/19/20 05:07 75 26 100 03/19/20 05:00 76 23 134/73 (93) 97 03/19/20 05:00 131/73 03/19/20 05:00 23 131/67 Mechanical Ventilator 100 03/19/20 05:00 131/73 03/19/20 05:00 23 Mechanical Ventilator 100 03/19/20 04:30 73 22 137/72 (93) 99 03/19/20 04:30 22 137/72 Mechanical Ventilator 100 03/19/20 04:00 100 03/19/20 04:00 75 03/19/20 04:00 101.0 75 27 131/67 (88) 99 03/19/20 04:00 131/67 03/19/20 04:00 27 131/67 Mechanical Ventilator 100 03/19/20 04:00 131/67 03/19/20 04:00 25 Mechanical Ventilator 100 03/19/20 04:00 Mechanical Ventilator 03/19/20 03:43 76 31 100 03/19/20 03:30 83 26 132/73 (92) 95 03/19/20 03:00 76 24 132/66 (88) 96 03/19/20 03:00 132/66 03/19/20 03:00 24 132/66 Mechanical Ventilator 100 03/19/20 03:00 132/66 03/19/20 03:00 24 Mechanical Ventilator 100 03/19/20 02:00 131/69 03/19/20 02:00 25 131/69 Mechanical Ventilator 100 03/19/20 02:00 131/69 03/19/20 02:00 25 Mechanical Ventilator 100 03/19/20 02:00 75 25 131/69 (89) 96 03/19/20 01:30 76 24 137/74 (95) 96 03/19/20 01:11 74 30 100 03/19/20 01:00 75 23 128/70 (89) 96 03/19/20 01:00 128/70 03/19/20 01:00 23 128/70 Mechanical Ventilator 100 03/19/20 01:00 128/70 03/19/20 01:00 23 Mechanical Ventilator 100 03/19/20 00:30 73 24 134/70 (91) 94 03/19/20 00:17 130/70 03/19/20 00:00 72 03/19/20 00:00 101.0 72 23 130/70 (90) 96 03/19/20 00:00 130/70 03/19/20 00:00 23 130/70 Mechanical Ventilator 100 03/19/20 00:00 130/70 03/19/20 00:00 23 Mechanical Ventilator 100 03/19/20 00:00 100 03/19/20 00:00 Mechanical Ventilator 03/18/20 23:30 73 25 136/70 (92) 95 03/18/20 23:11 73 27 100 03/18/20 23:00 72 22 134/65 (88) 95 03/18/20 23:00 134/65 03/18/20 23:00 22 134/65 Mechanical Ventilator 100 03/18/20 23:00 134/65 03/18/20 23:00 22 Mechanical Ventilator 100 03/18/20 22:30 72 25 124/72 (89) 95 Intake and Output 03/18/20 03/19/20 19:00 07:00 Intake Total 1586.499 ml 1844.90533 ml Output Total 420 ml 800 ml Balance 1166.499 ml 1044.92067 ml Free Water 120 ml IV Total 1126.499 ml 1384.55148 ml Tube Feeding 240 ml 280 ml Other 100 ml 180 ml Output Urine Total 420 ml 800 ml Laboratory Tests 03/19/20 05:15: White Blood Count 11.2H, Red Blood Count 3.05L, Hemoglobin 10.0L, Hematocrit 30.3L, Mean Corpuscular Volume 99, Mean Corpuscular Hemoglobin 32.9H, Mean Corpuscular Hemoglobin Concent 33.2, Red Cell Distribution Width 16.6H, Platelet Count 121L, Mean Platelet Volume 6.8, Neutrophils (%) (Auto) , Lymphocytes (%) (Auto) , Monocytes (%) (Auto) , Eosinophils (%) (Auto) , Basophils (%) (Auto) , Differential Total Cells Counted 100, Neutrophils % ( Manual) 83H, Lymphocytes % (Manual) 12L, Monocytes % (Manual) 5, Eosinophils % ( Manual) 0, Basophils % (Manual) 0, Band Neutrophils 0, Platelet Estimate DecreasedL, Platelet Morphology Normal, Anisocytosis 1+, Macrocytosis 1+, Sodium Level 124L, Potassium Level 5.3H, Chloride Level 92L, Carbon Dioxide Level 32, Anion Gap 1L, Blood Urea Nitrogen 11, Creatinine 0.7, Estimat Glomerular Filtration Rate > 60, Glucose Level 162H, Calcium Level 7.2L, Magnesium Level 1.9, Total Bilirubin 1.3H, Direct Bilirubin 0.7H, Aspartate Amino Transf (AST/SGOT) 66H, Alanine Aminotransferase (ALT/SGPT) 24, Alkaline Phosphatase 145H, Ammonia 96H, Total Protein 8.9H, Albumin 1.7L, Globulin 7.2, Albumin/Globulin Ratio 0.2L 03/19/20 09:45: Urine Osmolality 457H, Urine Random Sodium < 20L 03/19/20 10:18: Arterial Blood pH 7.257L, Arterial Blood Partial Pressure CO2 67.6*H, Arterial Blood Partial Pressure O2 65.4L, Arterial Blood HCO3 29.4H, Arterial Blood Oxygen Saturation 89.8*L, Arterial Blood Base Excess 1.2, Joaquin Test Positive 03/19/20 10:20: Osmolality 277L, Uric Acid 3.6, Phosphorus Level 3.4 03/19/20 15:00: Arterial Blood pH 7.406, Arterial Blood Partial Pressure CO2 41.1, Arterial Blood Partial Pressure O2 50.2L, Arterial Blood HCO3 25.2, Arterial Blood Oxygen Saturation 85.6*L, Arterial Blood Base Excess 0.5, Joaquin Test Positive 03/19/20 18:30: Arterial Blood pH 7.340L, Arterial Blood Partial Pressure CO2 58.5*H, Arterial Blood Partial Pressure O2 62.5L, Arterial Blood HCO3 30.9H, Arterial Blood Oxygen Saturation 90.1L, Arterial Blood Base Excess 4.1H, Joaquin Test Positive Height (Feet): 5 Height (Inches): 1.00 Weight (Pounds): 237 Celso Moreno MD March 19, 2020 22:24
[2020-03-20] VITALS (89 sets, daily range): BP systolic 41–166; BP diastolic 17–102
[2020-03-20] MEDS: propofoL 1,000mg/100ml 100 ML IV SCH ×2 (03:29→06:21)
[2020-03-20] MEDS: Metoclopramide 10mg/2ml Inj IVP SCH ×4 (04:09→21:38)
[2020-03-20] MEDS: Meropenem 1 GM in NS 55 ML IVPB SCH (05:38)
[2020-03-20] MEDS: Hydrocortisone 100mg Inj IV SCH (05:43)
[2020-03-20] MEDS: NovoLOG Insulin Flexpen SUBQ SCH ×3 (05:56→18:03)
[2020-03-20] MEDS: Norepinephrine Bitartrate 16 MG in D5W 500ml 484 ML IV SCH (06:57)
[2020-03-20] MEDS: fentaNYL Citrate 2,500 MCG in NS 200 ML IV SCH ×3 (07:12→22:17)
[2020-03-20 07:26] LABS: BASOPHILS % (AUTO) 0.8 % (0.0-2.0); HEMATOCRIT 30.7 % (37.0-47.0); HEMOGLOBIN 10.1 G/DL (12.0-16.0); LYMPHOCYTES % (AUTO) 10.6 % (20.0-45.0); MEAN CORPUSCULAR VOLUME 101 FL (80-99); NEUTROPHILS % (AUTO) 77.5 % (45.0-75.0); PLATELET COUNT 162 K/UL (150-450); RED BLOOD COUNT 3.03 M/UL (4.20-5.40); RED CELL DISTRIBUTION WIDTH 17.3 % (11.6-14.8); WHITE BLOOD COUNT 11.7 K/UL (4.8-10.8)
--- NOTE | 2020-03-20 07:30 | General Progress Note ---
Assessment/Plan Problem List: (1) Hypothyroid ICD Codes: E03.9 - Hypothyroidism, unspecified SNOMED: 15655559 (2) COVID-19 ICD Codes: U07.1 - COVID-19 SNOMED: 256244789 (3) Respiratory failure with hypoxia ICD Codes: J96.91 - Respiratory failure, unspecified with hypoxia SNOMED: [id number] Qualifiers: Qualified Codes: J96.01 - Acute respiratory failure with hypoxia (4) Respiratory distress ICD Codes: R06.03 - Acute respiratory distress SNOMED: 437215142 (5) Cellulitis ICD Codes: L03.90 - Cellulitis, unspecified SNOMED: 287937581 Qualifiers: Qualified Codes: L03.119 - Cellulitis of unspecified part of limb (6) Macrocytic anemia ICD Codes: D53.9 - Nutritional anemia, unspecified SNOMED: 06638320 Status: progressing, unchanged Assessment/Plan: Levothyroxine IV was ordered on 03/18 and has not been administered so far RN will notify the pharmacy Subjective Allergies: Coded Allergies: No Known Allergies (Unverified , 02/29/20) Subjective events noted IV levothyroxine has not been administered intubated in ICU on pressors Objective Last 24 Hour Vital Signs Date Time Temp Pulse Resp B/P (MAP) Pulse Ox O2 Delivery O2 Flow Rate FiO2 03/20/20 07:12 40 Mechanical Ventilator 100 03/20/20 07:00 67 41 88/52 (64) 96 03/20/20 07:00 40 88/52 Mechanical Ventilator 100 03/20/20 07:00 88/52 03/20/20 07:00 87/54 03/20/20 07:00 40 Mechanical Ventilator 100 03/20/20 06:57 87/54 03/20/20 06:45 68 48 87/54 (65) 95 03/20/20 06:45 87/54 03/20/20 06:30 103/63 03/20/20 06:30 71 50 103/63 (76) 95 03/20/20 06:21 47 141/87 Mechanical Ventilator 100 03/20/20 06:15 89 53 141/87 (105) 93 03/20/20 06:15 141/87 03/20/20 06:00 92 42 159/92 (114) 92 03/20/20 06:00 42 159/92 Mechanical Ventilator 100 03/20/20 06:00 159/92 03/20/20 06:00 159/92 03/20/20 06:00 42 Mechanical Ventilator 100 03/20/20 05:45 160/93 03/20/20 05:45 160/93 03/20/20 05:45 88 48 160/93 (115) 94 03/20/20 05:30 146/82 03/20/20 05:30 146/82 03/20/20 05:30 91 46 146/82 (103) 94 03/20/20 05:24 93 25 100 03/20/20 05:15 147/85 03/20/20 05:15 147/85 03/20/20 05:15 94 39 147/85 (105) 93 03/20/20 05:00 25 149/85 Mechanical Ventilator 100 03/20/20 05:00 149/85 03/20/20 05:00 149/85 03/20/20 05:00 25 Mechanical Ventilator 100 03/20/20 05:00 95 25 149/85 (106) 92 03/20/20 04:45 95 25 150/87 (108) 92 03/20/20 04:45 25 150/87 Mechanical Ventilator 100 03/20/20 04:39 100.9 03/20/20 04:30 26 147/86 Mechanical Ventilator 100 03/20/20 04:30 96 26 147/86 (106) 92 03/20/20 04:15 93 27 145/84 (104) 91 03/20/20 04:15 29 147/86 Mechanical Ventilator 100 03/20/20 04:00 101.8 91 25 125/75 (92) 94 03/20/20 04:00 26 145/84 Mechanical Ventilator 100 03/20/20 04:00 145/84 03/20/20 04:00 145/84 03/20/20 04:00 26 Mechanical Ventilator 100 03/20/20 04:00 80 03/20/20 04:00 Mechanical Ventilator 03/20/20 04:00 100 03/20/20 03:48 77 26 87/49 (62) 94 03/20/20 03:45 79 25 89/48 (62) 94 03/20/20 03:42 76 25 100 03/20/20 03:30 76 27 82/44 (57) 93 03/20/20 03:29 22 109/58 Mechanical Ventilator 100 03/20/20 03:15 95 19 109/58 (75) 94 03/20/20 03:15 96 31 100 03/20/20 03:00 97 42 135/73 (93) 92 03/20/20 02:45 38 135/73 Mechanical Ventilator 100 03/20/20 02:45 99 35 115/78 (90) 91 03/20/20 02:30 34 115/78 Mechanical Ventilator 100 03/20/20 02:30 99 30 126/63 (84) 91 03/20/20 02:15 32 126/63 Mechanical Ventilator 100 03/20/20 02:15 99 35 125/74 (91) 91 03/20/20 02:00 100 32 123/83 (96) 90 03/20/20 02:00 32 123/83 Mechanical Ventilator 100 03/20/20 02:00 123/83 03/20/20 02:00 123/83 03/20/20 02:00 32 Mechanical Ventilator 100 03/20/20 01:45 38 133/78 Mechanical Ventilator 100 03/20/20 01:45 38 Mechanical Ventilator 100 03/20/20 01:45 100 28 133/78 (96) 90 03/20/20 01:30 100 28 133/80 (97) 90 03/20/20 01:30 30 133/78 Mechanical Ventilator 100 03/20/20 01:30 30 Mechanical Ventilator 100 03/20/20 01:30 98 30 100 03/20/20 01:15 100 32 124/74 (91) 90 03/20/20 01:15 23 133/80 Mechanical Ventilator 100 03/20/20 01:15 23 Mechanical Ventilator 100 03/20/20 01:00 99 24 132/75 (94) 90 03/20/20 01:00 29 124/75 Mechanical Ventilator 100 03/20/20 01:00 124/74 03/20/20 01:00 124/74 03/20/20 01:00 29 Mechanical Ventilator 100 03/20/20 00:45 28 131/84 Mechanical Ventilator 100 03/20/20 00:45 100 24 131/84 (100) 89 03/20/20 00:30 100 20 133/95 (108) 89 03/20/20 00:30 29 131/84 Mechanical Ventilator 100 03/20/20 00:15 25 133/95 Mechanical Ventilator 100 03/20/20 00:00 96 03/20/20 00:00 99.6 98 14 114/65 (81) 96 03/20/20 00:00 14 114/65 Mechanical Ventilator 100 03/20/20 00:00 114/65 03/20/20 00:00 114/65 03/20/20 00:00 14 Mechanical Ventilator 100 03/20/20 00:00 100 03/20/20 00:00 Mechanical Ventilator 03/19/20 23:45 91 23 110/59 (76) 86 03/19/20 23:45 114/65 03/19/20 23:40 100 25 137/90 (106) 90 03/19/20 23:39 17 123/81 Mechanical Ventilator 100 03/19/20 23:30 100 20 123/81 (95) 93 03/19/20 23:30 110/59 03/19/20 23:30 99 31 100 03/19/20 23:15 123/81 03/19/20 23:15 103 24 131/70 (90) 91 03/19/20 23:00 96/55 03/19/20 23:00 35 131/70 Mechanical Ventilator 100 03/19/20 23:00 96/55 03/19/20 23:00 27 Mechanical Ventilator 100 03/19/20 23:00 100.5 83 28 95/55 (68) 85 03/19/20 22:45 82/47 03/19/20 22:45 80 21 82/47 (59) 91 03/19/20 22:30 99 34 120/73 (89) 88 03/19/20 22:28 27 Mechanical Ventilator 100 03/19/20 22:15 96 19 115/75 (88) 88 03/19/20 22:07 95 25 119/78 (92) 87 03/19/20 22:00 119/78 03/19/20 22:00 23 119/78 Mechanical Ventilator 100 03/19/20 22:00 119/78 03/19/20 22:00 23 Mechanical Ventilator 100 03/19/20 22:00 100.0 82 25 82/49 (60) 91 03/19/20 21:45 98 21 89/51 (64) 92 03/19/20 21:45 119/78 03/19/20 21:45 82/49 03/19/20 21:37 119/64 03/19/20 21:30 100 23 119/64 (82) 92 03/19/20 21:30 99 30 100 03/19/20 21:30 89/51 03/19/20 21:15 96 22 92/70 (77) 92 03/19/20 21:15 119/64 20 21:00 93 26 89/55 (66) 94 03/19/20 21:00 89/55 03/19/20 21:00 21 89/51 Mechanical Ventilator 100 03/19/20 21:00 89/55 03/19/20 21:00 26 Mechanical Ventilator 100 03/19/20 20:30 96 19 89/51 (64) 78 03/19/20 20:00 100 03/19/20 20:00 110/61 03/19/20 20:00 22 117/64 Mechanical Ventilator 100 03/19/20 20:00 110/61 03/19/20 20:00 26 Mechanical Ventilator 100 03/19/20 20:00 102 03/19/20 20:00 Mechanical Ventilator 03/19/20 20:00 102 26 110/69 (83) 90 03/19/20 19:30 102 20 112/72 (85) 90 03/19/20 19:30 97 31 100 03/19/20 19:00 103 19 108/68 (81) 89 03/19/20 19:00 103 19 108/68 (81) 89 03/19/20 19:00 108/68 03/19/20 19:00 19 108/68 Mechanical Ventilator 03/19/20 19:00 108/68 03/19/20 19:00 19 Mechanical Ventilator 03/19/20 18:45 103 26 109/75 (86) 89 03/19/20 18:30 104 24 106/71 (83) 90 03/19/20 18:30 104 24 106/71 (83) 90 03/19/20 18:15 104 20 105/68 (80) 89 03/19/20 18:00 105/65 03/19/20 18:00 19 105/65 Mechanical Ventilator 03/19/20 18:00 105/65 03/19/20 18:00 19 Mechanical Ventilator 03/19/20 18:00 100.0 105 19 105/65 (78) 89 5/3/20 17:30 106 18 115/64 (81) 89 03/19/20 17:00 109/69 03/19/20 17:00 12 109/69 Mechanical Ventilator 03/19/20 17:00 109/69 03/19/20 17:00 12 Mechanical Ventilator 03/19/20 17:00 106 12 109/69 (82) 89 03/19/20 16:53 28 113/65 Mechanical Ventilator 03/19/20 16:30 107 12 118/70 (86) 89 03/19/20 16:30 106 28 100 03/19/20 16:15 110 13 117/74 (88) 88 03/19/20 16:11 100.5 122 29 126/86 (99) 89 03/19/20 16:00 100 03/19/20 16:00 Mechanical Ventilator 03/19/20 16:00 106 03/19/20 16:00 126/86 03/19/20 16:00 29 126/86 Mechanical Ventilator 03/19/20 16:00 126/86 03/19/20 16:00 29 Mechanical Ventilator 03/19/20 15:30 116 24 156/88 (110) 91 03/19/20 15:15 121 31 168/127 (141) 88 03/19/20 15:00 168/127 03/19/20 15:00 31 168/127 Mechanical Ventilator 03/19/20 15:00 168/127 03/19/20 15:00 31 Mechanical Ventilator 03/19/20 15:00 125 33 100 03/19/20 14:30 124 31 149/80 (103) 86 03/19/20 14:00 156/130 03/19/20 14:00 30 156/130 Mechanical Ventilator 03/19/20 14:00 156/130 03/19/20 14:00 30 Mechanical Ventilator 03/19/20 14:00 123 30 156/130 (139) 90 03/19/20 13:30 124 41 149/92 (111) 92 03/19/20 13:00 120 23 141/77 (98) 92 03/19/20 13:00 141/77 03/19/20 13:00 141/77 03/19/20 13:00 23 Mechanical Ventilator 03/19/20 12:30 117 28 150/60 (90) 91 03/19/20 12:17 122 35 100 03/19/20 12:00 100 03/19/20 12:00 146/103 03/19/20 12:00 146/103 03/19/20 12:00 26 Mechanical Ventilator 03/19/20 12:00 117 03/19/20 12:00 117 26 146/103 (117) 90 03/19/20 12:00 Mechanical Ventilator 03/19/20 11:48 132/79 03/19/20 11:30 115 20 142/66 (91) 92 03/19/20 11:18 85 19 145/90 (108) 93 03/19/20 11:00 145/90 03/19/20 11:00 145/90 03/19/20 11:00 19 Mechanical Ventilator 03/19/20 11:00 100.0 85 19 145/90 (108) 93 03/19/20 10:30 97 30 100 03/19/20 10:00 96 47 154/82 (106) 86 03/19/20 10:00 154/82 03/19/20 10:00 26 154/82 Mechanical Ventilator 03/19/20 10:00 154/82 03/19/20 10:00 26 Mechanical Ventilator 03/19/20 09:30 72 26 154/82 (106) 98 03/19/20 09:23 75 28 100 03/19/20 09:15 22 Mechanical Ventilator 03/19/20 09:00 72 26 129/71 (90) 98 03/19/20 09:00 129/71 03/19/20 09:00 26 129/71 Mechanical Ventilator 03/19/20 09:00 129/71 03/19/20 09:00 26 Mechanical Ventilator 03/19/20 08:30 72 26 136/67 (90) 98 03/19/20 08:00 100 03/19/20 08:00 100 03/19/20 08:00 131/71 03/19/20 08:00 22 131/71 Mechanical Ventilator 03/19/20 08:00 131/71 03/19/20 08:00 22 Mechanical Ventilator 03/19/20 08:00 74 22 131/71 (91) 97 03/19/20 08:00 Mechanical Ventilator 03/19/20 07:48 75 28 100 Intake and Output 03/19/20 03/20/20 19:00 07:00 Intake Total 1608.4004 ml 1635.86168 ml Output Total 620 ml 370 ml Balance 988.4004 ml 1265.34391 ml IV Total 1128.4004 ml 1205.23072 ml Tube Feeding 360 ml 250 ml Other 120 ml 180 ml Output Urine Total 620 ml 370 ml # Bowel Movements 1 3 Laboratory Tests 03/19/20 09:45: Urine Osmolality 457H, Urine Random Sodium < 20L 03/19/20 10:18: Arterial Blood pH 7.257L, Arterial Blood Partial Pressure CO2 67.6*H, Arterial Blood Partial Pressure O2 65.4L, Arterial Blood HCO3 29.4H, Arterial Blood Oxygen Saturation 89.8*L, Arterial Blood Base Excess 1.2, Joaquin Test Positive 03/19/20 10:20: Osmolality 277L, Uric Acid 3.6, Phosphorus Level 3.4 03/19/20 15:00: Arterial Blood pH 7.406, Arterial Blood Partial Pressure CO2 41.1, Arterial Blood Partial Pressure O2 50.2L, Arterial Blood HCO3 25.2, Arterial Blood Oxygen Saturation 85.6*L, Arterial Blood Base Excess 0.5, Joaquin Test Positive 03/19/20 18:30: Arterial Blood pH 7.340L, Arterial Blood Partial Pressure CO2 58.5*H, Arterial Blood Partial Pressure O2 62.5L, Arterial Blood HCO3 30.9H, Arterial Blood Oxygen Saturation 90.1L, Arterial Blood Base Excess 4.1H, Joaquin Test Positive 03/20/20 05:37: White Blood Count [Pending], Red Blood Count [Pending], Hemoglobin [Pending], Hematocrit [Pending], Mean Corpuscular Volume [Pending], Mean Corpuscular Hemoglobin [Pending], Mean Corpuscular Hemoglobin Concent [Pending], Red Cell Distribution Width [Pending], Platelet Count [Pending], Mean Platelet Volume [ Pending], Neutrophils (%) (Auto) [Pending], Lymphocytes (%) (Auto) [Pending], Monocytes (%) (Auto) [Pending], Eosinophils (%) (Auto) [Pending], Basophils (%) (Auto) [Pending], D-Dimer [Pending], Sodium Level [Pending], Potassium Level [ Pending], Chloride Level [Pending], Carbon Dioxide Level [Pending], Blood Urea Nitrogen [Pending], Creatinine [Pending], Estimat Glomerular Filtration Rate [ Pending], Glucose Level [Pending], Hemoglobin A1c [Pending], Uric Acid [Pending] , Calcium Level [Pending], Phosphorus Level [Pending], Magnesium Level [Pending] , Total Bilirubin [Pending], Gamma Glutamyl Transpeptidase [Pending], Aspartate Amino Transf (AST/SGOT) [Pending], Alanine Aminotransferase (ALT/SGPT) [Pending] , Alkaline Phosphatase [Pending], Ammonia [Pending], Lactate Dehydrogenase [ Pending], Troponin I [Pending], C-Reactive Protein, Quantitative [Pending], Pro- B-Type Natriuretic Peptide [Pending], Total Protein [Pending], Albumin [Pending] , Globulin [Pending], Triglycerides Level [Pending], Cholesterol Level [Pending] , LDL Cholesterol [Pending], HDL Cholesterol [Pending], Cholesterol/HDL Ratio [ Pending], Thyroid Stimulating Hormone (TSH) [Pending] Height (Feet): 5 Height (Inches): 1.00 Weight (Pounds): 238 General Appearance: other - intubated EENT: other - ETT Cardiovascular: normal rate Respiratory/Chest: decreased breath sounds Abdomen: normal bowel sounds Pelvis: normal external exam Objective Current Medications Medications (Trade) Dose Ordered Sig/Dolores Route PRN Reason Start Time Stop Time Status Last Admin Dose Admin Acetaminophen (Tylenol) 650 mg Q4H PRN ORAL Temp >100 03/13/20 14:53 04/12/20 14:52 03/19/20 06:25 Acetaminophen (Tylenol) 650 mg Q4H PRN ORAL Mild Pain (Pain Scale 1-3) 03/13/20 14:53 04/12/20 14:52 03/20/20 04:09 Azithromycin (Zithromax) 500 mg DAILY ORAL 03/14/20 09:00 03/20/20 10:59 03/19/20 08:39 Chlorhexidine Gluconate (Lucretia-Hex 2%) 1 applic DAILY@1999 TOPIC 03/13/20 20:00 06/11/20 19:59 03/19/20 20:56 Dextrose (Dextrose 50%) 25 ml Q30M PRN IV Hypoglycemia 03/16/20 09:30 06/14/20 09:29 Dextrose (Dextrose 50%) 50 ml Q30M PRN IV Hypoglycemia 03/16/20 09:30 06/14/20 09:29 Diphenhydramine HCl (Benadryl) 25 mg Q4H PRN ORAL moderate itching 03/13/20 14:54 04/12/20 14:53 Diphenhydramine HCl (Benadryl) 50 mg Q4H PRN ORAL SEVERE ITCHING 03/13/20 14:53 04/12/20 14:52 Docusate Sodium (Colace) 100 mg TWICE A DAY ORAL 03/19/20 09:00 04/18/20 08:59 03/19/20 17:39 Dopamine HCl/ Dextrose 250 ml @ 0 mls/hr Q24H IV 03/16/20 19:30 06/14/20 19:29 03/19/20 21:37 Enoxaparin Sodium (Lovenox) 40 mg DAILY SUBQ 03/19/20 09:00 04/03/20 08:59 03/19/20 08:40 Fentanyl Citrate 2500 mcg/Sodium Chloride 250 ml @ 0 mls/hr Q24H IV 03/15/20 18:30 03/22/20 18:29 03/20/20 07:12 Hydrocortisone (Solu-CORTEF) 50 mg EVERY 8 HOURS IV 03/19/20 14:00 06/17/20 13:59 03/20/20 05:43 Insulin Aspart (NovoLOG) Q6HR SUBQ 03/16/20 12:00 06/14/20 11:59 03/20/20 05:56 Levothyroxine Sodium (Synthroid) 100 mcg DAILY IV 03/18/20 12:00 04/17/20 11:59 Meropenem 1 gm/ Sodium Chloride 55 ml @ 110 mls/hr Q8HR IVPB 03/16/20 14:00 03/21/20 13:59 03/20/20 05:38 Methylprednisolone Sodium Succinate (Solu-MEDROL) 50 mg EVERY 12 HOURS IVP 03/19/20 21:00 06/17/20 20:59 03/19/20 20:57 Metoclopramide HCl (Reglan) 10 mg Q6H IVP 03/17/20 10:15 04/16/20 10:14 03/20/20 04:09 Mirtazapine (Remeron) 7.5 mg BEDTIME PRN ORAL SLEEP 03/13/20 14:55 06/11/20 14:54 Non-Formulary Medication (Non-Formulary Med) 1 ea DAILY IV 03/18/20 09:00 04/17/20 08:59 UNV Norepinephrine Bitartrate 16 mg/ Dextrose 500 ml @ 0 mls/hr Q24H IV 03/17/20 21:00 04/16/20 13:02 03/20/20 06:57 Polyethylene Glycol (Miralax) 17 gm BEDTIME ORAL 03/19/20 21:00 04/18/20 20:59 03/19/20 20:57 Propofol 100 ml @ 0 mls/hr Q24H IV 03/19/20 23:30 03/21/20 23:29 03/20/20 06:21 Rifaximin (Xifaxan) 550 mg EVERY 12 HOURS ORAL 03/18/20 09:00 03/25/20 08:59 03/19/20 20:57 Vasopressin 100 units/Sodium Chloride 100 ml @ 0 mls/hr Q24H PRN IV For hypotension 03/16/20 11:00 04/15/20 10:59 03/19/20 18:03 Johan Christopher MD March 20, 2020 07:30
[2020-03-20 07:33] LABS: AMMONIA 116 umol/L (11-32)
[2020-03-20 07:47] LABS: CHOLESTEROL 74 MG/DL (< 200); GAMMA GLUTAMYL TRANSPEPTIDASE 106 U/L (5-85); HDL CHOLESTEROL 8 MG/DL (40-60); LACTATE DEHYDROGENASE 625 U/L (81-234); PHOSPHORUS 3.4 MG/DL (2.5-4.9); TRIGLYCERIDES 284 MG/DL (30-150)
[2020-03-20 08:08] LABS: ALANINE AMINOTRANSFERASE 25 U/L (12-78); ALBUMIN 2.4 G/DL (3.4-5.0); ALBUMIN/GLOBULIN RATIO 0.3 (1.0-2.7); ALKALINE PHOSPHATASE 142 U/L (46-116); ANION GAP 5 mmol/L (5-15); ASPARTATE AMINO TRANSFERASE 96 U/L (15-37); BILIRUBIN,TOTAL 2.1 MG/DL (0.2-1.0); BLOOD UREA NITROGEN 20 mg/dL (7-18); CALCIUM 7.9 MG/DL (8.5-10.1); CARBON DIOXIDE 28 MMOL/L (21-32); CHLORIDE 90 MMOL/L (98-107); CREATININE 0.8 MG/DL (0.55-1.30); SODIUM 123 MMOL/L (136-145)
[2020-03-20 08:10] LABS: BILIRUBIN,DIRECT 1.1 MG/DL (0.0-0.3)
[2020-03-20] MEDS ORDERED: Docusate 100mg/10ml Liq NG SCH (09:15)
--- NOTE | 2020-03-20 09:15 | Consultation ---
DATE OF CONSULTATION: 03/18/2020 CONSULTING PHYSICIAN: Johan hCristopher MD REFERRING PHYSICIAN: Celso Moreno MD HISTORY OF PRESENT ILLNESS: The patient is a 59-year-old female with history of obesity, bilateral lower extremities found to be COVID-19 positive, also has elevated glucose and lower extremity DVT. Patient has hyponatremia. PAST MEDICAL HISTORY: 1. Hypothyroidism. 2. Morbid obesity. 3. Liver cirrhosis. 4. Anemia. 5. Anxiety disorder. 6. Cellulitis. ALLERGIES TO MEDICATIONS: None. MEDICATIONS: Reviewed and reconciled. SOCIAL HISTORY: She is homeless. No smoking, alcohol, or drug use. REVIEW OF SYSTEMS: Difficult to obtain. PHYSICAL EXAMINATION: VITAL SIGNS: Blood pressure is 125/60, pulse is 67 and temperature of 98. HEENT: Pupils are equal and reactive to light. Sclerae are anicteric. NECK: No JVD. HEART: Regular. LUNGS: Clear. ABDOMEN: Positive bowel sounds. Abdomen distended. EXTREMITIES: edema. LABORATORY VALUES: WBC 10, hemoglobin 10, hematocrit 30, platelets of 87. DIAGNOSES: 1. Hypothyroidism. 2. Hyperglycemia 3. COVID. PLAN: Start the patient on IV Synthroid, repeat TSH, free T4 in one week. continue Glucose monitoring and Novolog coverage q 6hrs Thank you, Dr. Moreno, for the courtesy of this consultation. Johan Christopher M.D. DR: Tom JOB#: [id number] CC: ROMAN
[2020-03-20] MEDS: Solu-MEDROL 40mg Inj IVP SCH (09:25)
[2020-03-20] MEDS: Enoxaparin 40mg Inj SUBQ SCH (09:32)
[2020-03-20] MEDS: Azithromycin 250mg tab ORAL SCH (09:36)
--- NOTE | 2020-03-20 09:41 | Nephrology Progress Note ---
Assessment/Plan Problem List: (1) Electrolyte imbalance Assessment: Hyponatremia persist-hyperkalemia resolved (2) COVID-19 (3) Respiratory failure with hypoxia (4) Cellulitis (5) Hypothyroid Assessment Hyponatremia. Serum sodium started drifting down from March 16. Hyperkalemia. Septic shock. Acute respiratory failure. Respiratory failure and COVID pneumonia. History of cirrhosis/splenomegaly Anemia Bilateral lower extremity cellulitis Plan 3% saline 500 cc 1 time Urine sodium is below 20 Serum ammonia is elevated will start lactulose Patient on Solu-Medrol and Solu-Cortef will discontinue Solu-Cortef Will try to gently diurese for severe edema meanwhile administering albumin 25% as needed Monitor electrolytes and renal parameters We will add midodrine 10 mg 3 times a day via NG tube Decrease dosage of IV Synthroid Discussed with DAO Starr Subjective ROS Limited/Unobtainable: Yes Objective Objective Last 24 Hour Vital Signs Date Time Temp Pulse Resp B/P (MAP) Pulse Ox O2 Delivery O2 Flow Rate FiO2 03/20/20 07:12 40 Mechanical Ventilator 100 03/20/20 07:08 82 25 100 03/20/20 07:00 67 41 88/52 (64) 96 03/20/20 07:00 40 88/52 Mechanical Ventilator 100 03/20/20 07:00 88/52 03/20/20 07:00 87/54 03/20/20 07:00 40 Mechanical Ventilator 03/20/20 06:57 87/54 03/20/20 06:45 68 48 87/54 (65) 95 03/20/20 06:45 87/54 03/20/20 06:30 103/63 03/20/20 06:30 71 50 103/63 (76) 95 03/20/20 06:21 47 141/87 Mechanical Ventilator 100 03/20/20 06:15 89 53 141/87 (105) 93 03/20/20 06:15 141/87 03/20/20 06:00 92 42 159/92 (114) 92 03/20/20 06:00 42 159/92 Mechanical Ventilator 100 03/20/20 06:00 159/92 03/20/20 06:00 159/92 03/20/20 06:00 42 Mechanical Ventilator 100 03/20/20 05:45 160/93 03/20/20 05:45 160/93 03/20/20 05:45 88 48 160/93 (115) 94 03/20/20 05:30 146/82 03/20/20 05:30 146/82 03/20/20 05:30 91 46 146/82 (103) 94 03/20/20 05:24 93 25 100 03/20/20 05:15 147/85 03/20/20 05:15 147/85 03/20/20 05:15 94 39 147/85 (105) 93 03/20/20 05:00 25 149/85 Mechanical Ventilator 100 03/20/20 05:00 149/85 03/20/20 05:00 149/85 03/20/20 05:00 25 Mechanical Ventilator 100 03/20/20 05:00 95 25 149/85 (106) 92 03/20/20 04:45 95 25 150/87 (108) 92 03/20/20 04:45 25 150/87 Mechanical Ventilator 100 03/20/20 04:39 100.9 03/20/20 04:30 26 147/86 Mechanical Ventilator 100 03/20/20 04:30 96 26 147/86 (106) 92 03/20/20 04:15 93 27 145/84 (104) 91 03/20/20 04:15 29 147/86 Mechanical Ventilator 100 03/20/20 04:00 101.8 91 25 125/75 (92) 94 03/20/20 04:00 26 145/84 Mechanical Ventilator 100 03/20/20 04:00 145/84 03/20/20 04:00 145/84 03/20/20 04:00 26 Mechanical Ventilator 100 03/20/20 04:00 80 03/20/20 04:00 Mechanical Ventilator 03/20/20 04:00 100 03/20/20 03:48 77 26 87/49 (62) 94 03/20/20 03:45 79 25 89/48 (62) 94 03/20/20 03:42 76 25 100 03/20/20 03:30 76 27 82/44 (57) 93 03/20/20 03:29 22 109/58 Mechanical Ventilator 100 03/20/20 03:15 95 19 109/58 (75) 94 03/20/20 03:15 96 31 100 03/20/20 03:00 97 42 135/73 (93) 92 03/20/20 02:45 38 135/73 Mechanical Ventilator 100 03/20/20 02:45 99 35 115/78 (90) 91 03/20/20 02:30 34 115/78 Mechanical Ventilator 100 03/20/20 02:30 99 30 126/63 (84) 91 03/20/20 02:15 32 126/63 Mechanical Ventilator 100 03/20/20 02:15 99 35 125/74 (91) 91 03/20/20 02:00 100 32 123/83 (96) 90 03/20/20 02:00 32 123/83 Mechanical Ventilator 100 03/20/20 02:00 123/83 03/20/20 02:00 123/83 03/20/20 02:00 32 Mechanical Ventilator 100 03/20/20 01:45 38 133/78 Mechanical Ventilator 100 03/20/20 01:45 38 Mechanical Ventilator 100 03/20/20 01:45 100 28 133/78 (96) 90 03/20/20 01:30 100 28 133/80 (97) 90 03/20/20 01:30 30 133/78 Mechanical Ventilator 100 03/20/20 01:30 30 Mechanical Ventilator 100 03/20/20 01:30 98 30 100 03/20/20 01:15 100 32 124/74 (91) 90 03/20/20 01:15 23 133/80 Mechanical Ventilator 100 03/20/20 01:15 23 Mechanical Ventilator 100 03/20/20 01:00 99 24 132/75 (94) 90 03/20/20 01:00 29 124/75 Mechanical Ventilator 100 03/20/20 01:00 124/74 03/20/20 01:00 124/74 03/20/20 01:00 29 Mechanical Ventilator 100 03/20/20 00:45 28 131/84 Mechanical Ventilator 100 03/20/20 00:45 100 24 131/84 (100) 89 03/20/20 00:30 100 20 133/95 (108) 89 03/20/20 00:30 29 131/84 Mechanical Ventilator 100 03/20/20 00:15 25 133/95 Mechanical Ventilator 100 03/20/20 00:00 96 03/20/20 00:00 99.6 98 14 114/65 (81) 96 03/20/20 00:00 14 114/65 Mechanical Ventilator 100 5/4/20 00:00 114/65 03/20/20 00:00 114/65 03/20/20 00:00 14 Mechanical Ventilator 100 03/20/20 00:00 100 03/20/20 00:00 Mechanical Ventilator 03/19/20 23:45 91 23 110/59 (76) 86 03/19/20 23:45 114/65 03/19/20 23:40 100 25 137/90 (106) 90 03/19/20 23:39 17 123/81 Mechanical Ventilator 100 03/19/20 23:30 100 20 123/81 (95) 93 03/19/20 23:30 110/59 03/19/20 23:30 99 31 100 03/19/20 23:15 123/81 03/19/20 23:15 103 24 131/70 (90) 91 03/19/20 23:00 96/55 03/19/20 23:00 35 131/70 Mechanical Ventilator 100 03/19/20 23:00 96/55 03/19/20 23:00 27 Mechanical Ventilator 100 03/19/20 23:00 100.5 83 28 95/55 (68) 85 03/19/20 22:45 82/47 03/19/20 22:45 80 21 82/47 (59) 91 03/19/20 22:30 99 34 120/73 (89) 88 03/19/20 22:28 27 Mechanical Ventilator 100 03/19/20 22:15 96 19 115/75 (88) 88 03/19/20 22:07 95 25 119/78 (92) 87 03/19/20 22:00 119/78 03/19/20 22:00 23 119/78 Mechanical Ventilator 100 03/19/20 22:00 119/78 03/19/20 22:00 23 Mechanical Ventilator 100 03/19/20 22:00 100.0 82 25 82/49 (60) 91 03/19/20 21:45 98 21 89/51 (64) 92 03/19/20 21:45 119/78 03/19/20 21:45 82/49 03/19/20 21:37 119/64 03/19/20 21:30 100 23 119/64 (82) 92 03/19/20 21:30 99 30 100 03/19/20 21:30 89/51 03/19/20 21:15 96 22 92/70 (77) 92 03/19/20 21:15 119/64 03/19/20 21:00 93 26 89/55 (66) 94 03/19/20 21:00 89/55 03/19/20 21:00 21 89/51 Mechanical Ventilator 100 03/19/20 21:00 89/55 03/19/20 21:00 26 Mechanical Ventilator 100 03/19/20 20:30 96 19 89/51 (64) 78 03/19/20 20:00 100 03/19/20 20:00 110/61 03/19/20 20:00 22 117/64 Mechanical Ventilator 100 03/19/20 20:00 110/61 03/19/20 20:00 26 Mechanical Ventilator 100 03/19/20 20:00 102 03/19/20 20:00 Mechanical Ventilator 03/19/20 20:00 102 26 110/69 (83) 90 03/19/20 19:30 102 20 112/72 (85) 90 03/19/20 19:30 97 31 100 03/19/20 19:00 103 19 108/68 (81) 89 03/19/20 19:00 103 19 108/68 (81) 89 03/19/20 19:00 108/68 03/19/20 19:00 19 108/68 Mechanical Ventilator 03/19/20 19:00 108/68 03/19/20 19:00 19 Mechanical Ventilator 03/19/20 18:45 103 26 109/75 (86) 89 03/19/20 18:30 104 24 106/71 (83) 90 03/19/20 18:30 104 24 106/71 (83) 90 03/19/20 18:15 104 20 105/68 (80) 89 03/19/20 18:00 105/65 03/19/20 18:00 19 105/65 Mechanical Ventilator 03/19/20 18:00 105/65 03/19/20 18:00 19 Mechanical Ventilator 03/19/20 18:00 100.0 105 19 105/65 (78) 89 03/19/20 17:30 106 18 115/64 (81) 89 03/19/20 17:00 109/69 03/19/20 17:00 12 109/69 Mechanical Ventilator 03/19/20 17:00 109/69 5/3/20 17:00 12 Mechanical Ventilator 03/19/20 17:00 106 12 109/69 (82) 89 03/19/20 16:53 28 113/65 Mechanical Ventilator 03/19/20 16:30 107 12 118/70 (86) 89 03/19/20 16:30 106 28 100 03/19/20 16:15 110 13 117/74 (88) 88 03/19/20 16:11 100.5 122 29 126/86 (99) 89 03/19/20 16:00 100 03/19/20 16:00 Mechanical Ventilator 03/19/20 16:00 106 03/19/20 16:00 126/86 03/19/20 16:00 29 126/86 Mechanical Ventilator 03/19/20 16:00 126/86 03/19/20 16:00 29 Mechanical Ventilator 03/19/20 15:30 116 24 156/88 (110) 91 03/19/20 15:15 121 31 168/127 (141) 88 03/19/20 15:00 168/127 03/19/20 15:00 31 168/127 Mechanical Ventilator 03/19/20 15:00 168/127 03/19/20 15:00 31 Mechanical Ventilator 03/19/20 15:00 125 33 100 03/19/20 14:30 124 31 149/80 (103) 86 03/19/20 14:00 156/130 03/19/20 14:00 30 156/130 Mechanical Ventilator 03/19/20 14:00 156/130 03/19/20 14:00 30 Mechanical Ventilator 03/19/20 14:00 123 30 156/130 (139) 90 03/19/20 13:30 124 41 149/92 (111) 92 03/19/20 13:00 120 23 141/77 (98) 92 03/19/20 13:00 141/77 03/19/20 13:00 141/77 03/19/20 13:00 23 Mechanical Ventilator 03/19/20 12:30 117 28 150/60 (90) 91 03/19/20 12:17 122 35 100 03/19/20 12:00 100 03/19/20 12:00 146/103 03/19/20 12:00 146/103 03/19/20 12:00 26 Mechanical Ventilator 03/19/20 12:00 117 03/19/20 12:00 117 26 146/103 (117) 90 03/19/20 12:00 Mechanical Ventilator 03/19/20 11:48 132/79 03/19/20 11:30 115 20 142/66 (91) 92 03/19/20 11:18 85 19 145/90 (108) 93 03/19/20 11:00 145/90 03/19/20 11:00 145/90 03/19/20 11:00 19 Mechanical Ventilator 03/19/20 11:00 100.0 85 19 145/90 (108) 93 03/19/20 10:30 97 30 100 03/19/20 10:00 96 47 154/82 (106) 86 03/19/20 10:00 154/82 03/19/20 10:00 26 154/82 Mechanical Ventilator 03/19/20 10:00 154/82 03/19/20 10:00 26 Mechanical Ventilator Intake and Output 03/19/20 03/20/20 19:00 07:00 Intake Total 1608.4004 ml 1635.36234 ml Output Total 620 ml 370 ml Balance 988.4004 ml 1265.25199 ml IV Total 1128.4004 ml 1205.45378 ml Tube Feeding 360 ml 250 ml Other 120 ml 180 ml Output Urine Total 620 ml 370 ml # Bowel Movements 1 3 Laboratory Tests 03/19/20 09:45: Urine Osmolality 457H, Urine Random Sodium < 20L 03/19/20 10:18: Arterial Blood pH 7.257L, Arterial Blood Partial Pressure CO2 67.6*H, Arterial Blood Partial Pressure O2 65.4L, Arterial Blood HCO3 29.4H, Arterial Blood Oxygen Saturation 89.8*L, Arterial Blood Base Excess 1.2, Joaquin Test Positive 03/19/20 10:20: Osmolality 277L, Uric Acid 3.6, Phosphorus Level 3.4 03/19/20 15:00: Arterial Blood pH 7.406, Arterial Blood Partial Pressure CO2 41.1, Arterial Blood Partial Pressure O2 50.2L, Arterial Blood HCO3 25.2, Arterial Blood Oxygen Saturation 85.6*L, Arterial Blood Base Excess 0.5, Joaquin Test Positive 03/19/20 18:30: Arterial Blood pH 7.340L, Arterial Blood Partial Pressure CO2 58.5*H, Arterial Blood Partial Pressure O2 62.5L, Arterial Blood HCO3 30.9H, Arterial Blood Oxygen Saturation 90.1L, Arterial Blood Base Excess 4.1H, Joaquin Test Positive 03/20/20 05:37: White Blood Count 11.7H, Red Blood Count 3.03L, Hemoglobin 10.1L, Hematocrit 30.7L, Mean Corpuscular Volume 101H, Mean Corpuscular Hemoglobin 33.4H, Mean Corpuscular Hemoglobin Concent 32.9, Red Cell Distribution Width 17.3H, Platelet Count 162, Mean Platelet Volume 5.8L, Neutrophils (%) (Auto) 77.5H, Lymphocytes (%) (Auto) 10.6L, Monocytes (%) (Auto) 11.0H, Eosinophils (%) (Auto ) 0.0, Basophils (%) (Auto) 0.8, D-Dimer 9.71H, Sodium Level 123L, Potassium Level 5.0, Chloride Level 90L, Carbon Dioxide Level 28, Anion Gap 5, Blood Urea Nitrogen 20H, Creatinine 0.8, Estimat Glomerular Filtration Rate > 60, Glucose Level 193H, Hemoglobin A1c 5.4, Uric Acid 4.5, Calcium Level 7.9L, Phosphorus Level 3.4, Magnesium Level 2.1, Total Bilirubin 2.1H, Direct Bilirubin 1.1H, Gamma Glutamyl Transpeptidase 106H, Aspartate Amino Transf (AST/SGOT) 96H, Alanine Aminotransferase (ALT/SGPT) 25, Alkaline Phosphatase 142H, Ammonia 116H , Lactate Dehydrogenase 625H, Troponin I 0.409H, C-Reactive Protein, Quantitative 8.8H, Pro-B-Type Natriuretic Peptide > 68100K, Total Protein 9.4H, Albumin 2.4L, Globulin 7.0, Albumin/Globulin Ratio 0.3L, Triglycerides Level 284H, Cholesterol Level 74, LDL Cholesterol 52, HDL Cholesterol 8L, Cholesterol/ HDL Ratio 9.3H, Thyroid Stimulating Hormone (TSH) 4.026H 03/20/20 08:24: Arterial Blood pH 7.296L, Arterial Blood Partial Pressure CO2 51.5H, Arterial Blood Partial Pressure O2 65.7L, Arterial Blood HCO3 24.5, Arterial Blood Oxygen Saturation 89.8*L, Arterial Blood Base Excess -2.3L, Joaquin Test N/a Height (Feet): 5 Height (Inches): 1.00 Weight (Pounds): 238 General Appearance: no apparent distress EENT: other - Intubated on mechanical ventilation Cardiovascular: normal rate Respiratory/Chest: decreased breath sounds Abdomen: distended Extremities: other - Edematous Cristhian Granados MD March 20, 2020 09:41
[2020-03-20] MEDS ORDERED: NaCl 3% 500ml 500 ML IV ONE (10:00)
--- NOTE | 2020-03-20 10:22 | General Progress Note ---
Assessment/Plan Status: progressing, unchanged Assessment/Plan: macrocytic anemia elevated LFTS cirrhosis cellulitis elevated Ammonia levels respiratory distress>>> now failure COVID positive pna NGTF reglan abd us>> reviewed lactulose and Xifaxan fu stool ob>>>neg s/p one unit PRBC in this admission GI procedures if needed abx per id hepatitis panel>>>>>positive for hep C>>> needs out patient fu poor prognosis on laxatives will fu Subjective ROS Limited/Unobtainable: No Allergies: Coded Allergies: No Known Allergies (Unverified , 02/29/20) Objective Last 24 Hour Vital Signs Date Time Temp Pulse Resp B/P (MAP) Pulse Ox O2 Delivery O2 Flow Rate FiO2 03/20/20 07:12 40 Mechanical Ventilator 100 03/20/20 07:08 82 25 100 03/20/20 07:00 67 41 88/52 (64) 96 03/20/20 07:00 40 88/52 Mechanical Ventilator 100 03/20/20 07:00 88/52 03/20/20 07:00 87/54 03/20/20 07:00 40 Mechanical Ventilator 100 03/20/20 06:57 87/54 03/20/20 06:45 68 48 87/54 (65) 95 03/20/20 06:45 87/54 03/20/20 06:30 103/63 03/20/20 06:30 71 50 103/63 (76) 95 03/20/20 06:21 47 141/87 Mechanical Ventilator 100 03/20/20 06:15 89 53 141/87 (105) 93 03/20/20 06:15 141/87 03/20/20 06:00 92 42 159/92 (114) 92 03/20/20 06:00 42 159/92 Mechanical Ventilator 100 03/20/20 06:00 159/92 03/20/20 06:00 159/92 03/20/20 06:00 42 Mechanical Ventilator 100 03/20/20 05:45 160/93 03/20/20 05:45 160/93 03/20/20 05:45 88 48 160/93 (115) 94 03/20/20 05:30 146/82 03/20/20 05:30 146/82 03/20/20 05:30 91 46 146/82 (103) 94 03/20/20 05:24 93 25 100 03/20/20 05:15 147/85 03/20/20 05:15 147/85 03/20/20 05:15 94 39 147/85 (105) 93 03/20/20 05:00 25 149/85 Mechanical Ventilator 100 03/20/20 05:00 149/85 03/20/20 05:00 149/85 03/20/20 05:00 25 Mechanical Ventilator 100 03/20/20 05:00 95 25 149/85 (106) 92 03/20/20 04:45 95 25 150/87 (108) 92 03/20/20 04:45 25 150/87 Mechanical Ventilator 100 03/20/20 04:39 100.9 03/20/20 04:30 26 147/86 Mechanical Ventilator 100 03/20/20 04:30 96 26 147/86 (106) 92 03/20/20 04:15 93 27 145/84 (104) 91 03/20/20 04:15 29 147/86 Mechanical Ventilator 100 03/20/20 04:00 101.8 91 25 125/75 (92) 94 03/20/20 04:00 26 145/84 Mechanical Ventilator 100 03/20/20 04:00 145/84 03/20/20 04:00 145/84 03/20/20 04:00 26 Mechanical Ventilator 100 03/20/20 04:00 80 03/20/20 04:00 Mechanical Ventilator 03/20/20 04:00 100 03/20/20 03:48 77 26 87/49 (62) 94 03/20/20 03:45 79 25 89/48 (62) 94 03/20/20 03:42 76 25 100 03/20/20 03:30 76 27 82/44 (57) 93 03/20/20 03:29 22 109/58 Mechanical Ventilator 100 03/20/20 03:15 95 19 109/58 (75) 94 03/20/20 03:15 96 31 100 03/20/20 03:00 97 42 135/73 (93) 92 03/20/20 02:45 38 135/73 Mechanical Ventilator 100 03/20/20 02:45 99 35 115/78 (90) 91 03/20/20 02:30 34 115/78 Mechanical Ventilator 100 03/20/20 02:30 99 30 126/63 (84) 91 03/20/20 02:15 32 126/63 Mechanical Ventilator 100 03/20/20 02:15 99 35 125/74 (91) 91 03/20/20 02:00 100 32 123/83 (96) 90 03/20/20 02:00 32 123/83 Mechanical Ventilator 100 03/20/20 02:00 123/83 03/20/20 02:00 123/83 03/20/20 02:00 32 Mechanical Ventilator 100 03/20/20 01:45 38 133/78 Mechanical Ventilator 100 03/20/20 01:45 38 Mechanical Ventilator 100 03/20/20 01:45 100 28 133/78 (96) 90 03/20/20 01:30 100 28 133/80 (97) 90 03/20/20 01:30 30 133/78 Mechanical Ventilator 100 03/20/20 01:30 30 Mechanical Ventilator 100 03/20/20 01:30 98 30 100 03/20/20 01:15 100 32 124/74 (91) 90 03/20/20 01:15 23 133/80 Mechanical Ventilator 100 03/20/20 01:15 23 Mechanical Ventilator 100 03/20/20 01:00 99 24 132/75 (94) 90 03/20/20 01:00 29 124/75 Mechanical Ventilator 100 03/20/20 01:00 124/74 03/20/20 01:00 124/74 03/20/20 01:00 29 Mechanical Ventilator 100 03/20/20 00:45 28 131/84 Mechanical Ventilator 100 03/20/20 00:45 100 24 131/84 (100) 89 03/20/20 00:30 100 20 133/95 (108) 89 03/20/20 00:30 29 131/84 Mechanical Ventilator 100 03/20/20 00:15 25 133/95 Mechanical Ventilator 100 03/20/20 00:00 96 03/20/20 00:00 99.6 98 14 114/65 (81) 96 03/20/20 00:00 14 114/65 Mechanical Ventilator 100 03/20/20 00:00 114/65 03/20/20 00:00 114/65 03/20/20 00:00 14 Mechanical Ventilator 100 03/20/20 00:00 100 03/20/20 00:00 Mechanical Ventilator 03/19/20 23:45 91 23 110/59 (76) 86 03/19/20 23:45 114/65 03/19/20 23:40 100 25 137/90 (106) 90 03/19/20 23:39 17 123/81 Mechanical Ventilator 100 03/19/20 23:30 100 20 123/81 (95) 93 03/19/20 23:30 110/59 03/19/20 23:30 99 31 100 03/19/20 23:15 123/81 03/19/20 23:15 103 24 131/70 (90) 91 03/19/20 23:00 96/55 03/19/20 23:00 35 131/70 Mechanical Ventilator 100 03/19/20 23:00 96/55 03/19/20 23:00 27 Mechanical Ventilator 100 03/19/20 23:00 100.5 83 28 95/55 (68) 85 03/19/20 22:45 82/47 03/19/20 22:45 80 21 82/47 (59) 91 03/19/20 22:30 99 34 120/73 (89) 88 03/19/20 22:28 27 Mechanical Ventilator 100 03/19/20 22:15 96 19 115/75 (88) 88 03/19/20 22:07 95 25 119/78 (92) 87 03/19/20 22:00 119/78 03/19/20 22:00 23 119/78 Mechanical Ventilator 100 03/19/20 22:00 119/78 03/19/20 22:00 23 Mechanical Ventilator 100 03/19/20 22:00 100.0 82 25 82/49 (60) 91 03/19/20 21:45 98 21 89/51 (64) 92 03/19/20 21:45 119/78 03/19/20 21:45 82/49 03/19/20 21:37 119/64 03/19/20 21:30 100 23 119/64 (82) 92 03/19/20 21:30 99 30 100 03/19/20 21:30 89/51 03/19/20 21:15 96 22 92/70 (77) 92 03/19/20 21:15 119/64 03/19/20 21:00 93 26 89/55 (66) 94 03/19/20 21:00 89/55 03/19/20 21:00 21 89/51 Mechanical Ventilator 100 03/19/20 21:00 89/55 03/19/20 21:00 26 Mechanical Ventilator 100 03/19/20 20:30 96 19 89/51 (64) 78 03/19/20 20:00 100 03/19/20 20:00 110/61 03/19/20 20:00 22 117/64 Mechanical Ventilator 100 03/19/20 20:00 110/61 03/19/20 20:00 26 Mechanical Ventilator 100 03/19/20 20:00 102 03/19/20 20:00 Mechanical Ventilator 03/19/20 20:00 102 26 110/69 (83) 90 03/19/20 19:30 102 20 112/72 (85) 90 03/19/20 19:30 97 31 100 03/19/20 19:00 103 19 108/68 (81) 89 03/19/20 19:00 103 19 108/68 (81) 89 03/19/20 19:00 108/68 03/19/20 19:00 19 108/68 Mechanical Ventilator 03/19/20 19:00 108/68 03/19/20 19:00 19 Mechanical Ventilator 03/19/20 18:45 103 26 109/75 (86) 89 03/19/20 18:30 104 24 106/71 (83) 90 03/19/20 18:30 104 24 106/71 (83) 90 03/19/20 18:15 104 20 105/68 (80) 89 03/19/20 18:00 105/65 03/19/20 18:00 19 105/65 Mechanical Ventilator 03/19/20 18:00 105/65 03/19/20 18:00 19 Mechanical Ventilator 03/19/20 18:00 100.0 105 19 105/65 (78) 89 03/19/20 17:30 106 18 115/64 (81) 89 03/19/20 17:00 109/69 03/19/20 17:00 12 109/69 Mechanical Ventilator 03/19/20 17:00 109/69 03/19/20 17:00 12 Mechanical Ventilator 03/19/20 17:00 106 12 109/69 (82) 89 03/19/20 16:53 28 113/65 Mechanical Ventilator 03/19/20 16:30 107 12 118/70 (86) 89 03/19/20 16:30 106 28 100 03/19/20 16:15 110 13 117/74 (88) 88 03/19/20 16:11 100.5 122 29 126/86 (99) 89 03/19/20 16:00 100 03/19/20 16:00 Mechanical Ventilator 03/19/20 16:00 106 03/19/20 16:00 126/86 03/19/20 16:00 29 126/86 Mechanical Ventilator 03/19/20 16:00 126/86 03/19/20 16:00 29 Mechanical Ventilator 03/19/20 15:30 116 24 156/88 (110) 91 03/19/20 15:15 121 31 168/127 (141) 88 03/19/20 15:00 168/127 03/19/20 15:00 31 168/127 Mechanical Ventilator 03/19/20 15:00 168/127 03/19/20 15:00 31 Mechanical Ventilator 03/19/20 15:00 125 33 100 03/19/20 14:30 124 31 149/80 (103) 86 03/19/20 14:00 156/130 03/19/20 14:00 30 156/130 Mechanical Ventilator 03/19/20 14:00 156/130 03/19/20 14:00 30 Mechanical Ventilator 03/19/20 14:00 123 30 156/130 (139) 90 03/19/20 13:30 124 41 149/92 (111) 92 03/19/20 13:00 120 23 141/77 (98) 92 03/19/20 13:00 141/77 03/19/20 13:00 141/77 03/19/20 13:00 23 Mechanical Ventilator 03/19/20 12:30 117 28 150/60 (90) 91 03/19/20 12:17 122 35 100 03/19/20 12:00 100 03/19/20 12:00 146/103 03/19/20 12:00 146/103 03/19/20 12:00 26 Mechanical Ventilator 03/19/20 12:00 117 03/19/20 12:00 117 26 146/103 (117) 90 03/19/20 12:00 Mechanical Ventilator 03/19/20 11:48 132/79 03/19/20 11:30 115 20 142/66 (91) 92 03/19/20 11:18 85 19 145/90 (108) 93 03/19/20 11:00 145/90 03/19/20 11:00 145/90 03/19/20 11:00 19 Mechanical Ventilator 03/19/20 11:00 100.0 85 19 145 (108) 93 03/19/20 10:30 97 30 100 Intake and Output 03/19/20 03/20/20 19:00 07:00 Intake Total 1608.4004 ml 1635.39559 ml Output Total 620 ml 370 ml Balance 988.4004 ml 1265.49177 ml IV Total 1128.4004 ml 1205.85573 ml Tube Feeding 360 ml 250 ml Other 120 ml 180 ml Output Urine Total 620 ml 370 ml # Bowel Movements 1 3 Laboratory Tests 03/19/20 15:00: Arterial Blood pH 7.406, Arterial Blood Partial Pressure CO2 41.1, Arterial Blood Partial Pressure O2 50.2L, Arterial Blood HCO3 25.2, Arterial Blood Oxygen Saturation 85.6*L, Arterial Blood Base Excess 0.5, Joaquin Test Positive 03/19/20 18:30: Arterial Blood pH 7.340L, Arterial Blood Partial Pressure CO2 58.5*H, Arterial Blood Partial Pressure O2 62.5L, Arterial Blood HCO3 30.9H, Arterial Blood Oxygen Saturation 90.1L, Arterial Blood Base Excess 4.1H, Joaquin Test Positive 03/20/20 05:37: White Blood Count 11.7H, Red Blood Count 3.03L, Hemoglobin 10.1L, Hematocrit 30.7L, Mean Corpuscular Volume 101H, Mean Corpuscular Hemoglobin 33.4H, Mean Corpuscular Hemoglobin Concent 32.9, Red Cell Distribution Width 17.3H, Platelet Count 162, Mean Platelet Volume 5.8L, Neutrophils (%) (Auto) 77.5H, Lymphocytes (%) (Auto) 10.6L, Monocytes (%) (Auto) 11.0H, Eosinophils (%) (Auto ) 0.0, Basophils (%) (Auto) 0.8, D-Dimer 9.71H, Sodium Level 123L, Potassium Level 5.0, Chloride Level 90L, Carbon Dioxide Level 28, Anion Gap 5, Blood Urea Nitrogen 20H, Creatinine 0.8, Estimat Glomerular Filtration Rate > 60, Glucose Level 193H, Hemoglobin A1c 5.4, Uric Acid 4.5, Calcium Level 7.9L, Phosphorus Level 3.4, Magnesium Level 2.1, Total Bilirubin 2.1H, Direct Bilirubin 1.1H, Gamma Glutamyl Transpeptidase 106H, Aspartate Amino Transf (AST/SGOT) 96H, Alanine Aminotransferase (ALT/SGPT) 25, Alkaline Phosphatase 142H, Ammonia 116H , Lactate Dehydrogenase 625H, Troponin I 0.409H, C-Reactive Protein, Quantitative 8.8H, Pro-B-Type Natriuretic Peptide > 04042B, Total Protein 9.4H, Albumin 2.4L, Globulin 7.0, Albumin/Globulin Ratio 0.3L, Triglycerides Level 284H, Cholesterol Level 74, LDL Cholesterol 52, HDL Cholesterol 8L, Cholesterol/ HDL Ratio 9.3H, Thyroid Stimulating Hormone (TSH) 4.026H 03/20/20 08:24: Arterial Blood pH 7.296L, Arterial Blood Partial Pressure CO2 51.5H, Arterial Blood Partial Pressure O2 65.7L, Arterial Blood HCO3 24.5, Arterial Blood Oxygen Saturation 89.8*L, Arterial Blood Base Excess -2.3L, Joaquin Test N/a Height (Feet): 5 Height (Inches): 1.00 Weight (Pounds): 238 General Appearance: no apparent distress EENT: normal ENT inspection Neck: supple Cardiovascular: normal rate Respiratory/Chest: decreased breath sounds Abdomen: normal bowel sounds, non tender, soft Extremities: non-tender Tam Spicer MD March 20, 2020 10:22
[2020-03-20] MEDS: DOPamine 400mg/250ml 250 ML IV SCH (11:00)
--- NOTE | 2020-03-20 11:13 | Hematology/Onc Progress Note ---
Assessment/Plan Assessment/Plan Assessment and Recs # Pancytopenia -- multiple etiologies could be related to underlying liver disease, medication-induced, infection versus viral syndrome versus underlying bone marrow cause, in this case, has severe liver disease and cirrhosis, HEP C++ , also cellulitis --> peripheral smear has been ordered and does not show significant abnormalities and none noted --> Medications have been reviewed --> Continue to monitor for improvement, trend cbc --> Hep panel and HIV are both negative --> US abd ordered to r/o cirrhosis and hepatosplenomegaly ->CIRRHOSIS IS NOTED , LARGE SPLEEN --> reverse isolation if ANC is <2000 --> Give neupogen if ANC <1000 --> Transfuse if hgb <7, with 1 unit prbc --> anemia panel ordered as well-->CW acd --> hgb trend 7-->7.1-->8.4-->8.2 -->8.7-->9.9 --> plt 145k-->152-->162k-->149k-->121k->171k --> wbc 3.4-->3.5->3.9->4.4 --> abx: sameer/rifaximin # Cellulitis of the lower extremities --> continue abx as needed as per id --> Started on IV antibiotics-->azithro/cefepime --> as per surg recs, wound care # Ftt --> remains on mirtazapine # Elevated LFTS --> as per gi --> due to cirrhosis # Respiratory failure --> s/p intubation 03/16 --> prone positioning as needed by pulm # Dvt ppx lovenox sq The timing of this note does not necessarily reflect the time of the patient was seen. Greatly appreciate consultation. Subjective HEENT: Denies: no symptoms, eye pain, blurred vision, tearing, double vision, ear pain, ear discharge, nose pain, nose congestion, throat pain, throat swelling, mouth pain, mouth swelling, other Cardiovascular: Denies: no symptoms, chest pain, edema, irregular heart rate, lightheadedness, palpitations, syncope, other Respiratory: Denies: no symptoms, cough, shortness of breath, SOB with excertion, SOB at rest, sputum, wheezing, other Gastrointestinal/Abdominal: Denies: no symptoms, abdomen distended, abdominal pain, black stools, tarry stools, blood in stool, constipated, diarrhea, difficulty swallowing, nausea, poor appetite, poor fluid intake, rectal bleeding , vomiting, other Allergies: Coded Allergies: No Known Allergies (Unverified , 02/29/20) Subjective 03/02 no events, no bleeding, hgb 7.1, no hemolysis 03/03 s/p blood, hgb improved to 8.4, stool ob negtive, on abx 03/05 asleep, no acute distress, hgb 8.2 03/06 remains comfortable, on abx, plt remains low 03/07 is on nonrebreather, no night sweats, labs are noted 03/08 labs reviewed, being diuresed, seen by cards, psych, labs noted 03/09 lasix adjusted, wbc remains low at 3.9, reviewed meds, smear 03/10 no night sweats, no bleeding, labs noted, smear noted 03/12 labs noted, none completed, have reordered, cellulitis better 03/13 is continuing with chest pain, cards aware, no further studies until covid neg 03/14 labs noted, no bleeding, diuresis as needed, hgb stable 03/15 alseep is cooperative, no bleeding, meds noted 03/16 no bleeding or chills, hgb 10.8, no night sweats, no major events 03/17 now intubated, no bleeding, labs noted, dw rn 03/19 remains intubated, no bleeding, labs noted, on pressors 03/20 prone posiition, seen by gi and renal, nob leeding, hgb 10.1 Objective Objective Current Medications Medications (Trade) Dose Ordered Sig/Dolores Route PRN Reason Start Time Stop Time Status Last Admin Dose Admin Acetaminophen (Tylenol) 650 mg Q4H PRN ORAL Temp >100 03/13/20 14:53 04/12/20 14:52 03/19/20 06:25 Acetaminophen (Tylenol) 650 mg Q4H PRN ORAL Mild Pain (Pain Scale 1-3) 03/13/20 14:53 04/12/20 14:52 03/20/20 04:09 Chlorhexidine Gluconate (Lucretia-Hex 2%) 1 applic DAILY@1999 TOPIC 03/13/20 20:00 06/11/20 19:59 03/19/20 20:56 Dextrose (Dextrose 50%) 25 ml Q30M PRN IV Hypoglycemia 03/16/20 09:30 06/14/20 09:29 Dextrose (Dextrose 50%) 50 ml Q30M PRN IV Hypoglycemia 03/16/20 09:30 06/14/20 09:29 Dopamine HCl/ Dextrose 250 ml @ 0 mls/hr Q24H IV 03/16/20 19:30 06/14/20 19:29 03/19/20 21:37 Enoxaparin Sodium (Lovenox) 40 mg DAILY SUBQ 03/19/20 09:00 04/03/20 08:59 03/20/20 09:32 Fentanyl Citrate 2500 mcg/Sodium Chloride 250 ml @ 0 mls/hr Q24H IV 03/15/20 18:30 03/22/20 18:29 03/20/20 07:12 Insulin Aspart (NovoLOG) Q6HR SUBQ 03/16/20 12:00 06/14/20 11:59 03/20/20 05:56 Lactulose (Cephulac) 30 gm THREE TIMES A DAY NG 03/20/20 13:00 04/19/20 12:59 Levothyroxine Sodium (Synthroid) 50 mcg DAILY IV 03/21/20 09:00 04/17/20 11:59 Levothyroxine Sodium (Synthroid) 50 mcg ONCE IV 03/20/20 11:30 03/20/20 12:30 Meropenem 1 gm/ Sodium Chloride 55 ml @ 110 mls/hr Q8HR IVPB 03/16/20 14:00 03/21/20 13:59 03/20/20 05:38 Methylprednisolone Sodium Succinate (Solu-MEDROL) 50 mg EVERY 12 HOURS IVP 03/20/20 21:00 06/17/20 20:59 Metoclopramide HCl (Reglan) 10 mg Q6H IVP 03/17/20 10:15 04/16/20 10:14 03/20/20 09:37 Midodrine (Pro-Amatine) 10 mg THREE TIMES A DAY NG 03/20/20 13:00 06/18/20 12:59 Mirtazapine (Remeron) 7.5 mg BEDTIME PRN ORAL SLEEP 03/13/20 14:55 06/11/20 14:54 Non-Formulary Medication (Non-Formulary Med) 1 ea DAILY IV 03/18/20 09:00 04/17/20 08:59 UNV Norepinephrine Bitartrate 16 mg/ Dextrose 500 ml @ 0 mls/hr Q24H IV 03/17/20 21:00 04/16/20 13:02 03/20/20 06:57 Polyethylene Glycol (Miralax) 17 gm BEDTIME ORAL 03/19/20 21:00 04/18/20 20:59 03/19/20 20:57 Propofol 100 ml @ 0 mls/hr Q24H IV 03/19/20 23:30 03/21/20 23:29 03/20/20 06:21 Rifaximin (Xifaxan) 550 mg EVERY 12 HOURS ORAL 03/18/20 09:00 03/25/20 08:59 03/20/20 09:30 Sodium Chloride 500 ml @ 30 mls/hr ONCE ONCE IV 03/20/20 10:00 03/21/20 02:39 Tocilizumab 400 mg/Sodium Chloride 130 ml @ 110 mls/hr ONCE IV 03/20/20 12:00 03/20/20 13:30 Vasopressin 100 units/Sodium Chloride 100 ml @ 0 mls/hr Q24H PRN IV For hypotension 03/16/20 11:00 04/15/20 10:59 03/19/20 18:03 Last 24 Hour Vital Signs Date Time Temp Pulse Resp B/P (MAP) Pulse Ox O2 Delivery O2 Flow Rate FiO2 03/20/20 10:34 59 25 100 03/20/20 07:12 40 Mechanical Ventilator 100 03/20/20 07:08 82 25 100 03/20/20 07:00 67 41 88/52 (64) 96 03/20/20 07:00 40 88/52 Mechanical Ventilator 100 03/20/20 07:00 88/52 03/20/20 07:00 87/54 03/20/20 07:00 40 Mechanical Ventilator 100 03/20/20 06:57 87/54 03/20/20 06:45 68 48 87/54 (65) 95 03/20/20 06:45 87/54 03/20/20 06:30 103/63 03/20/20 06:30 71 50 103/63 (76) 95 03/20/20 06:21 47 141/87 Mechanical Ventilator 100 03/20/20 06:15 89 53 141/87 (105) 93 03/20/20 06:15 141/87 03/20/20 06:00 92 42 159/92 (114) 92 03/20/20 06:00 42 159/92 Mechanical Ventilator 100 03/20/20 06:00 159/92 03/20/20 06:00 159/92 03/20/20 06:00 42 Mechanical Ventilator 100 03/20/20 05:45 160/93 03/20/20 05:45 160/93 03/20/20 05:45 88 48 160/93 (115) 94 03/20/20 05:30 146/82 03/20/20 05:30 146/82 03/20/20 05:30 91 46 146/82 (103) 94 03/20/20 05:24 93 25 100 03/20/20 05:15 147/85 03/20/20 05:15 147/85 03/20/20 05:15 94 39 147/85 (105) 93 03/20/20 05:00 25 149/85 Mechanical Ventilator 100 03/20/20 05:00 149/85 03/20/20 05:00 149/85 03/20/20 05:00 25 Mechanical Ventilator 100 03/20/20 05:00 95 25 149/85 (106) 92 03/20/20 04:45 95 25 150/87 (108) 92 03/20/20 04:45 25 150/87 Mechanical Ventilator 100 03/20/20 04:39 100.9 03/20/20 04:30 26 147/86 Mechanical Ventilator 100 03/20/20 04:30 96 26 147/86 (106) 92 03/20/20 04:15 93 27 145/84 (104) 91 03/20/20 04:15 29 147/86 Mechanical Ventilator 100 03/20/20 04:00 101.8 91 25 125/75 (92) 94 03/20/20 04:00 26 145/84 Mechanical Ventilator 100 03/20/20 04:00 145/84 03/20/20 04:00 145/84 03/20/20 04:00 26 Mechanical Ventilator 100 03/20/20 04:00 80 5/4/20 04:00 Mechanical Ventilator 03/20/20 04:00 100 03/20/20 03:48 77 26 87/49 (62) 94 03/20/20 03:45 79 25 89/48 (62) 94 03/20/20 03:42 76 25 100 03/20/20 03:30 76 27 82/44 (57) 93 03/20/20 03:29 22 109/58 Mechanical Ventilator 100 03/20/20 03:15 95 19 109/58 (75) 94 03/20/20 03:15 96 31 100 03/20/20 03:00 97 42 135/73 (93) 92 03/20/20 02:45 38 135/73 Mechanical Ventilator 100 03/20/20 02:45 99 35 115/78 (90) 91 03/20/20 02:30 34 115/78 Mechanical Ventilator 100 03/20/20 02:30 99 30 126/63 (84) 03/20/20 02:15 32 126/63 Mechanical Ventilator 100 03/20/20 02:15 99 35 125/74 (91) 91 03/20/20 02:00 100 32 123/83 (96) 03/20/20 02:00 32 123/83 Mechanical Ventilator 100 03/20/20 02:00 123/83 03/20/20 02:00 123/83 03/20/20 02:00 32 Mechanical Ventilator 100 03/20/20 01:45 38 133/78 Mechanical Ventilator 100 03/20/20 01:45 38 Mechanical Ventilator 03/20/20 01:45 100 28 133/78 (96) 03/20/20 01:30 100 28 133/80 (97) 03/20/20 01:30 30 133/78 Mechanical Ventilator 100 03/20/20 01:30 30 Mechanical Ventilator 100 03/20/20 01:30 98 30 100 03/20/20 01:15 100 32 124/74 (91) 03/20/20 01:15 23 133/80 Mechanical Ventilator 100 03/20/20 01:15 23 Mechanical Ventilator 100 03/20/20 01:00 99 24 132/75 (94) 90 03/20/20 01:00 29 124/75 Mechanical Ventilator 100 03/20/20 01:00 124/74 03/20/20 01:00 124/74 5/4/20 01:00 29 Mechanical Ventilator 100 03/20/20 00:45 28 131/84 Mechanical Ventilator 100 03/20/20 00:45 100 24 131/84 (100) 89 03/20/20 00:30 100 20 133/95 (108) 89 03/20/20 00:30 29 131/84 Mechanical Ventilator 100 03/20/20 00:15 25 133/95 Mechanical Ventilator 100 03/20/20 00:00 96 03/20/20 00:00 99.6 98 14 114/65 (81) 96 03/20/20 00:00 14 114/65 Mechanical Ventilator 100 03/20/20 00:00 114/65 03/20/20 00:00 114/65 03/20/20 00:00 14 Mechanical Ventilator 100 03/20/20 00:00 100 03/20/20 00:00 Mechanical Ventilator 03/19/20 23:45 91 23 110/59 (76) 86 03/19/20 23:45 114/65 03/19/20 23:40 100 25 137/90 (106) 90 03/19/20 23:39 17 123/81 Mechanical Ventilator 100 03/19/20 23:30 100 20 123/81 (95) 93 03/19/20 23:30 110/59 03/19/20 23:30 99 31 100 03/19/20 23:15 123/81 03/19/20 23:15 103 24 131/70 (90) 91 03/19/20 23:00 96/55 03/19/20 23:00 35 131/70 Mechanical Ventilator 100 03/19/20 23:00 96/55 03/19/20 23:00 27 Mechanical Ventilator 100 03/19/20 23:00 100.5 83 28 95/55 (68) 85 03/19/20 22:45 82/47 03/19/20 22:45 80 21 82/47 (59) 91 03/19/20 22:30 99 34 120/73 (89) 88 03/19/20 22:28 27 Mechanical Ventilator 100 03/19/20 22:15 96 19 115/75 (88) 88 03/19/20 22:07 95 25 119/78 (92) 87 03/19/20 22:00 119/78 03/19/20 22:00 23 119/78 Mechanical Ventilator 100 03/19/20 22:00 119/78 03/19/20 22:00 23 Mechanical Ventilator 100 03/19/20 22:00 100.0 82 25 82/49 (60) 91 03/19/20 21:45 98 21 89/51 (64) 92 03/19/20 21:45 119/78 03/19/20 21:45 82/49 03/19/20 21:37 119/64 03/19/20 21:30 100 23 119/64 (82) 92 03/19/20 21:30 99 30 100 03/19/20 21:30 89/51 03/19/20 21:15 96 22 92/70 (77) 92 03/19/20 21:15 119/64 03/19/20 21:00 93 26 89/55 (66) 94 03/19/20 21:00 89/55 03/19/20 21:00 21 89/51 Mechanical Ventilator 100 03/19/20 21:00 89/55 03/19/20 21:00 26 Mechanical Ventilator 100 03/19/20 20:30 96 19 89/51 (64) 78 03/19/20 20:00 100 03/19/20 20:00 110/61 03/19/20 20:00 22 117/64 Mechanical Ventilator 100 03/19/20 20:00 110/61 03/19/20 20:00 26 Mechanical Ventilator 100 03/19/20 20:00 102 03/19/20 20:00 Mechanical Ventilator 03/19/20 20:00 102 26 110/69 (83) 90 03/19/20 19:30 102 20 112/72 (85) 90 03/19/20 19:30 97 31 100 03/19/20 19:00 103 19 108/68 (81) 89 03/19/20 19:00 103 19 108/68 (81) 89 03/19/20 19:00 108/68 03/19/20 19:00 19 108/68 Mechanical Ventilator 03/19/20 19:00 108/68 03/19/20 19:00 19 Mechanical Ventilator 03/19/20 18:45 103 26 109/75 (86) 89 03/19/20 18:30 104 24 106/71 (83) 90 03/19/20 18:30 104 24 106/71 (83) 90 03/19/20 18:15 104 20 105/68 (80) 89 03/19/20 18:00 105/65 03/19/20 18:00 19 105/65 Mechanical Ventilator 03/19/20 18:00 105/65 03/19/20 18:00 19 Mechanical Ventilator 03/19/20 18:00 100.0 105 19 105/65 (78) 89 03/19/20 17:30 106 18 115/64 (81) 89 03/19/20 17:00 109/69 03/19/20 17:00 12 109/69 Mechanical Ventilator 03/19/20 17:00 109/69 03/19/20 17:00 12 Mechanical Ventilator 03/19/20 17:00 106 12 109/69 (82) 89 03/19/20 16:53 28 113/65 Mechanical Ventilator 03/19/20 16:30 107 12 118/70 (86) 89 03/19/20 16:30 106 28 100 03/19/20 16:15 110 13 117/74 (88) 88 03/19/20 16:11 100.5 122 29 126/86 (99) 89 03/19/20 16:00 100 03/19/20 16:00 Mechanical Ventilator 03/19/20 16:00 106 03/19/20 16:00 126/86 03/19/20 16:00 29 126/86 Mechanical Ventilator 03/19/20 16:00 126/86 03/19/20 16:00 29 Mechanical Ventilator 03/19/20 15:30 116 24 156/88 (110) 91 03/19/20 15:15 121 31 168/127 (141) 88 03/19/20 15:00 168/127 03/19/20 15:00 31 168/127 Mechanical Ventilator 03/19/20 15:00 168/127 03/19/20 15:00 31 Mechanical Ventilator 03/19/20 15:00 125 33 100 03/19/20 14:30 124 31 149/80 (103) 86 03/19/20 14:00 156/130 03/19/20 14:00 30 156/130 Mechanical Ventilator 03/19/20 14:00 156/130 03/19/20 14:00 30 Mechanical Ventilator 03/19/20 14:00 123 30 156/130 (139) 90 03/19/20 13:30 124 41 149/92 (111) 92 03/19/20 13:00 120 23 141/77 (98) 92 03/19/20 13:00 141/77 03/19/20 13:00 141/77 03/19/20 13:00 23 Mechanical Ventilator 03/19/20 12:30 117 28 150/60 (90) 91 03/19/20 12:17 122 35 100 03/19/20 12:00 100 03/19/20 12:00 146/103 03/19/20 12:00 146/103 03/19/20 12:00 26 Mechanical Ventilator 03/19/20 12:00 117 03/19/20 12:00 117 26 146/103 (117) 90 03/19/20 12:00 Mechanical Ventilator 03/19/20 11:48 132/79 03/19/20 11:30 115 20 142/66 (91) 92 03/19/20 11:18 85 19 145/90 (108) 93 03/19/20 11:00 145/90 03/19/20 11:00 145/90 03/19/20 11:00 19 Mechanical Ventilator 03/19/20 11:00 100.0 85 19 145/90 (108) 93 03/19/20 10:30 97 30 100 03/19/20 10:00 96 47 154/82 (106) 86 03/19/20 10:00 154/82 03/19/20 10:00 26 154/82 Mechanical Ventilator 03/19/20 10:00 154/82 03/19/20 10:00 26 Mechanical Ventilator 03/19/20 09:30 72 26 154/82 (106) 98 03/19/20 09:23 75 28 100 03/19/20 09:15 22 Mechanical Ventilator 03/19/20 09:00 72 26 129/71 (90) 98 03/19/20 09:00 129/71 03/19/20 09:00 26 129/71 Mechanical Ventilator 03/19/20 09:00 129/71 03/19/20 09:00 26 Mechanical Ventilator 03/19/20 08:30 72 26 136/67 (90) 98 03/19/20 08:00 100 03/19/20 08:00 100 03/19/20 08:00 131/71 03/19/20 08:00 22 131/71 Mechanical Ventilator 03/19/20 08:00 131/71 03/19/20 08:00 22 Mechanical Ventilator 03/19/20 08:00 74 22 131/71 (91) 97 03/19/20 08:00 Mechanical Ventilator 03/19/20 07:48 75 28 100 03/19/20 07:00 75 23 134/73 (93) 97 03/19/20 07:00 134/73 03/19/20 07:00 23 134/73 Mechanical Ventilator 100 03/19/20 07:00 134/73 03/19/20 07:00 23 Mechanical Ventilator 100 03/19/20 06:55 100.0 03/19/20 06:30 75 25 137/74 (95) 97 03/19/20 06:00 100.5 76 24 136/74 (94) 97 03/19/20 06:00 131/74 03/19/20 06:00 24 136/74 Mechanical Ventilator 100 03/19/20 06:00 131/74 03/19/20 06:00 24 Mechanical Ventilator 100 03/19/20 05:30 75 24 129/73 (91) 97 03/19/20 05:07 75 26 100 03/19/20 05:00 76 23 134/73 (93) 97 03/19/20 05:00 131/73 03/19/20 05:00 23 131/67 Mechanical Ventilator 100 03/19/20 05:00 131/73 03/19/20 05:00 23 Mechanical Ventilator 100 03/19/20 04:30 73 22 137/72 (93) 99 03/19/20 04:30 22 137/72 Mechanical Ventilator 100 03/19/20 04:00 100 03/19/20 04:00 75 03/19/20 04:00 101.0 75 27 131/67 (88) 99 03/19/20 04:00 131/67 03/19/20 04:00 27 131/67 Mechanical Ventilator 100 03/19/20 04:00 131/67 03/19/20 04:00 25 Mechanical Ventilator 100 03/19/20 04:00 Mechanical Ventilator 03/19/20 03:43 76 31 100 03/19/20 03:30 83 26 132/73 (92) 95 03/19/20 03:00 76 24 132/66 (88) 96 03/19/20 03:00 132/66 5/3/20 03:00 24 132/66 Mechanical Ventilator 100 03/19/20 03:00 132/66 03/19/20 03:00 24 Mechanical Ventilator 100 03/19/20 02:00 131/69 03/19/20 02:00 25 131/69 Mechanical Ventilator 100 03/19/20 02:00 131/69 03/19/20 02:00 25 Mechanical Ventilator 100 03/19/20 02:00 75 25 131/69 (89) 96 03/19/20 01:30 76 24 137/74 (95) 96 03/19/20 01:11 74 30 100 03/19/20 01:00 75 23 128/70 (89) 96 03/19/20 01:00 128/70 03/19/20 01:00 23 128/70 Mechanical Ventilator 100 03/19/20 01:00 128/70 03/19/20 01:00 23 Mechanical Ventilator 100 03/19/20 00:30 73 24 134/70 (91) 94 03/19/20 00:17 130/70 03/19/20 00:00 72 03/19/20 00:00 101.0 72 23 130/70 (90) 96 03/19/20 00:00 130/70 03/19/20 00:00 23 130/70 Mechanical Ventilator 100 03/19/20 00:00 130/70 03/19/20 00:00 23 Mechanical Ventilator 100 03/19/20 00:00 100 03/19/20 00:00 Mechanical Ventilator 03/18/20 23:30 73 25 136/70 (92) 95 03/18/20 23:11 73 27 100 03/18/20 23:00 72 22 134/65 (88) 95 03/18/20 23:00 134/65 03/18/20 23:00 22 134/65 Mechanical Ventilator 100 03/18/20 23:00 134/65 03/18/20 23:00 22 Mechanical Ventilator 100 03/18/20 22:30 72 25 124/72 (89) 95 03/18/20 22:12 113/63 03/18/20 22:00 73 25 113/63 (80) 95 03/18/20 22:00 113/63 03/18/20 22:00 25 113/63 Mechanical Ventilator 100 5/2/20 22:00 113/63 03/18/20 22:00 25 Mechanical Ventilator 100 03/18/20 21:05 70 26 100 03/18/20 21:00 70 25 122/68 (86) 98 03/18/20 21:00 122/68 03/18/20 21:00 25 122/68 Mechanical Ventilator 100 03/18/20 21:00 122/68 03/18/20 21:00 25 Mechanical Ventilator 100 03/18/20 20:30 22 105/55 Mechanical Ventilator 100 03/18/20 20:30 87 23 114/60 (78) 96 03/18/20 20:00 100 03/18/20 20:00 72 27 100 03/18/20 20:00 100.1 73 25 107/58 (74) 94 03/18/20 20:00 107/58 03/18/20 20:00 25 107/58 Mechanical Ventilator 100 03/18/20 20:00 107/58 03/18/20 20:00 25 Mechanical Ventilator 100 03/18/20 20:00 73 03/18/20 20:00 Mechanical Ventilator 03/18/20 19:30 72 26 112/63 (79) 96 03/18/20 19:00 111/58 03/18/20 19:00 26 111/58 Mechanical Ventilator 100 03/18/20 19:00 111/58 03/18/20 19:00 26 Mechanical Ventilator 100 03/18/20 19:00 69 26 111/58 (75) 97 03/18/20 18:30 70 26 121/57 (78) 97 03/18/20 18:00 121/62 03/18/20 18:00 21 121/62 Mechanical Ventilator 100 03/18/20 18:00 121/62 03/18/20 18:00 21 Mechanical Ventilator 100 03/18/20 18:00 70 26 124/60 (81) 96 03/18/20 17:30 70 21 125/62 (83) 96 03/18/20 17:00 120/61 03/18/20 17:00 22 120/61 Mechanical Ventilator 100 03/18/20 17:00 120/61 03/18/20 17:00 21 Mechanical Ventilator 100 03/18/20 17:00 69 22 124/64 (84) 96 03/18/20 16:55 69 26 100 03/18/20 16:30 69 43 126/63 (84) 96 03/18/20 16:00 100 03/18/20 16:00 Mechanical Ventilator 03/18/20 16:00 122/64 03/18/20 16:00 26 122/64 Mechanical Ventilator 100 03/18/20 16:00 122/64 03/18/20 16:00 26 Mechanical Ventilator 100 03/18/20 16:00 70 03/18/20 16:00 70 40 122/64 (83) 96 03/18/20 15:30 71 41 122/65 (84) 95 03/18/20 15:04 70 26 100 03/18/20 15:00 71 43 124/63 (83) 95 03/18/20 15:00 120/60 03/18/20 15:00 30 120/60 Mechanical Ventilator 100 03/18/20 15:00 120/60 03/18/20 15:00 24 Mechanical Ventilator 100 03/18/20 14:30 70 44 120/59 (79) 96 03/18/20 14:00 129/67 03/18/20 14:00 30 126/62 Mechanical Ventilator 100 03/18/20 14:00 126/60 03/18/20 14:00 26 Mechanical Ventilator 100 03/18/20 14:00 71 49 126/67 (86) 96 03/18/20 13:50 126/67 03/18/20 13:30 71 50 124/63 (83) 95 03/18/20 13:09 70 26 100 03/18/20 13:00 129/66 03/18/20 13:00 30 129/66 Mechanical Ventilator 100 03/18/20 13:00 129/66 03/18/20 13:00 71 46 129/64 (85) 95 03/18/20 12:00 98.6 71 51 126/67 (86) 95 03/18/20 12:00 100 03/18/20 12:00 129/66 03/18/20 12:00 30 129/66 Mechanical Ventilator 100 03/18/20 12:00 129/66 03/18/20 12:00 69 03/18/20 12:00 Mechanical Ventilator 03/18/20 11:30 69 48 126/66 (86) 95 03/18/20 11:13 69 26 100 Intake and Output 03/19/20 03/20/20 19:00 07:00 Intake Total 1608.4004 ml 1635.23074 ml Output Total 620 ml 370 ml Balance 988.4004 ml 1265.74509 ml IV Total 1128.4004 ml 1205.19340 ml Tube Feeding 360 ml 250 ml Other 120 ml 180 ml Output Urine Total 620 ml 370 ml # Bowel Movements 1 3 Labs Test 03/18/20 06:50 03/19/20 05:15 03/19/20 09:45 03/19/20 10:18 White Blood Count 10.8 K/UL (4.8-10.8) 11.2 K/UL (4.8-10.8) Red Blood Count 3.06 M/UL (4.20-5.40) 3.05 M/UL (4.20-5.40) Hemoglobin 10.2 G/DL (12.0-16.0) 10.0 G/DL (12.0-16.0) Hematocrit 30.2 % (37.0-47.0) 30.3 % (37.0-47.0) Mean Corpuscular Volume 99 FL (80-99) 99 FL (80-99) Mean Corpuscular Hemoglobin 33.2 PG (27.0-31.0) 32.9 PG (27.0-31.0) Mean Corpuscular Hemoglobin Concent 33.6 G/DL (32.0-36.0) 33.2 G/DL (32.0-36.0) Red Cell Distribution Width 17.4 % (11.6-14.8) 16.6 % (11.6-14.8) Platelet Count 87 K/UL (150-450) 121 K/UL (150-450) Mean Platelet Volume 8.5 FL (6.5-10.1) 6.8 FL (6.5-10.1) Neutrophils (%) (Auto) % (45.0-75.0) % (45.0-75.0) Lymphocytes (%) (Auto) % (20.0-45.0) % (20.0-45.0) Monocytes (%) (Auto) % (1.0-10.0) % (1.0-10.0) Eosinophils (%) (Auto) % (0.0-3.0) % (0.0-3.0) Basophils (%) (Auto) % (0.0-2.0) % (0.0-2.0) Differential Total Cells Counted 100 100 Neutrophils % (Manual) 88 % (45-75) 83 % (45-75) Lymphocytes % (Manual) 8 % (20-45) 12 % (20-45) Monocytes % (Manual) 4 % (1-10) 5 % (1-10) Eosinophils % (Manual) 0 % (0-3) 0 % (0-3) Basophils % (Manual) 0 % (0-2) 0 % (0-2) Band Neutrophils 0 % (0-8) 0 % (0-8) Platelet Estimate Decreased Decreased Platelet Morphology Normal Normal Anisocytosis 1+ 1+ Macrocytosis 1+ 1+ Sodium Level 123 MMOL/L (136-145) 124 MMOL/L (136-145) Potassium Level 4.1 MMOL/L (3.5-5.1) 5.3 MMOL/L (3.5-5.1) Chloride Level 89 MMOL/L (98-107) 92 MMOL/L (98-107) Carbon Dioxide Level 30 MMOL/L (21-32) 32 MMOL/L (21-32) Anion Gap 4 mmol/L (5-15) 1 mmol/L (5-15) Blood Urea Nitrogen 9 mg/dL (7-18) 11 mg/dL (7-18) Creatinine 0.7 MG/DL (0.55-1.30) 0.7 MG/DL (0.55-1.30) Estimat Glomerular Filtration Rate > 60 mL/min (>60) > 60 mL/min (>60) Glucose Level 176 MG/DL (74-106) 162 MG/DL (74-106) Calcium Level 7.7 MG/DL (8.5-10.1) 7.2 MG/DL (8.5-10.1) Triglycerides Level 80 MG/DL (30-150) Magnesium Level 1.9 MG/DL (1.8-2.4) Total Bilirubin 1.3 MG/DL (0.2-1.0) Direct Bilirubin 0.7 MG/DL (0.0-0.3) Aspartate Amino Transf (AST/SGOT) 66 U/L (15-37) Alanine Aminotransferase (ALT/SGPT) 24 U/L (12-78) Alkaline Phosphatase 145 U/L (46-116) Ammonia 96 umol/L (11-32) Total Protein 8.9 G/DL (6.4-8.2) Albumin 1.7 G/DL (3.4-5.0) Globulin 7.2 g/dL Albumin/Globulin Ratio 0.2 (1.0-2.7) Urine Osmolality 457 mOsm/kg (429-449) Urine Random Sodium < 20 mmol/L (20-110) Arterial Blood pH 7.257 (7.350-7.450) Arterial Blood Partial Pressure CO2 67.6 mmHg (35.0-45.0) Arterial Blood Partial Pressure O2 65.4 mmHg (75.0-100.0) Arterial Blood HCO3 29.4 mmol/L (22.0-26.0) Arterial Blood Oxygen Saturation 89.8 % (95-100) Arterial Blood Base Excess 1.2 (-2-2) Joaquin Test Positive Test 03/19/20 10:20 03/19/20 15:00 03/19/20 18:30 03/20/20 05:37 Osmolality 277 mOsm/kg (297-317) Uric Acid 3.6 MG/DL (2.6-7.2) 4.5 MG/DL (2.6-7.2) Phosphorus Level 3.4 MG/DL (2.5-4.9) 3.4 MG/DL (2.5-4.9) Arterial Blood pH 7.406 (7.350-7.450) 7.340 (7.350-7.450) Arterial Blood Partial Pressure CO2 41.1 mmHg (35.0-45.0) 58.5 mmHg (35.0-45.0) Arterial Blood Partial Pressure O2 50.2 mmHg (75.0-100.0) 62.5 mmHg (75.0-100.0) Arterial Blood HCO3 25.2 mmol/L (22.0-26.0) 30.9 mmol/L (22.0-26.0) Arterial Blood Oxygen Saturation 85.6 % (95-100) 90.1 % (95-100) Arterial Blood Base Excess 0.5 (-2-2) 4.1 (-2-2) Joaquin Test Positive Positive White Blood Count 11.7 K/UL (4.8-10.8) Red Blood Count 3.03 M/UL (4.20-5.40) Hemoglobin 10.1 G/DL (12.0-16.0) Hematocrit 30.7 % (37.0-47.0) Mean Corpuscular Volume 101 FL (80-99) Mean Corpuscular Hemoglobin 33.4 PG (27.0-31.0) Mean Corpuscular Hemoglobin Concent 32.9 G/DL (32.0-36.0) Red Cell Distribution Width 17.3 % (11.6-14.8) Platelet Count 162 K/UL (150-450) Mean Platelet Volume 5.8 FL (6.5-10.1) Neutrophils (%) (Auto) 77.5 % (45.0-75.0) Lymphocytes (%) (Auto) 10.6 % (20.0-45.0) Monocytes (%) (Auto) 11.0 % (1.0-10.0) Eosinophils (%) (Auto) 0.0 % (0.0-3.0) Basophils (%) (Auto) 0.8 % (0.0-2.0) D-Dimer 9.71 mg/L FEU (0.00-0.49) Sodium Level 123 MMOL/L (136-145) Potassium Level 5.0 MMOL/L (3.5-5.1) Chloride Level 90 MMOL/L (98-107) Carbon Dioxide Level 28 MMOL/L (21-32) Anion Gap 5 mmol/L (5-15) Blood Urea Nitrogen 20 mg/dL (7-18) Creatinine 0.8 MG/DL (0.55-1.30) Estimat Glomerular Filtration Rate > 60 mL/min (>60) Glucose Level 193 MG/DL (74-106) Hemoglobin A1c 5.4 % (4.3-6.0) Calcium Level 7.9 MG/DL (8.5-10.1) Magnesium Level 2.1 MG/DL (1.8-2.4) Total Bilirubin 2.1 MG/DL (0.2-1.0) Direct Bilirubin 1.1 MG/DL (0.0-0.3) Gamma Glutamyl Transpeptidase 106 U/L (5-85) Aspartate Amino Transf (AST/SGOT) 96 U/L (15-37) Alanine Aminotransferase (ALT/SGPT) 25 U/L (12-78) Alkaline Phosphatase 142 U/L (46-116) Ammonia 116 umol/L (11-32) Lactate Dehydrogenase 625 U/L (81-234) Troponin I 0.409 ng/mL (0.000-0.056) C-Reactive Protein, Quantitative 8.8 mg/dL (0.00-0.90) Pro-B-Type Natriuretic Peptide > 01076 pg/mL (0-125) Total Protein 9.4 G/DL (6.4-8.2) Albumin 2.4 G/DL (3.4-5.0) Globulin 7.0 g/dL Albumin/Globulin Ratio 0.3 (1.0-2.7) Triglycerides Level 284 MG/DL (30-150) Cholesterol Level 74 MG/DL (< 200) LDL Cholesterol 52 mg/dL (<100) HDL Cholesterol 8 MG/DL (40-60) Cholesterol/HDL Ratio 9.3 (3.3-4.4) Thyroid Stimulating Hormone (TSH) 4.026 uiU/mL (0.358-3.740) Test 03/20/20 08:24 Arterial Blood pH 7.296 (7.350-7.450) Arterial Blood Partial Pressure CO2 51.5 mmHg (35.0-45.0) Arterial Blood Partial Pressure O2 65.7 mmHg (75.0-100.0) Arterial Blood HCO3 24.5 mmol/L (22.0-26.0) Arterial Blood Oxygen Saturation 89.8 % (95-100) Arterial Blood Base Excess -2.3 (-2-2) Joaquin Test N/a Height (Feet): 5 Height (Inches): 1.00 Weight (Pounds): 238 Objective Physical Exam: Vitals: reviewed General: NAD HEENT: nc, at Neck: supple Chest: crackles b/l, mech breath sounds ++intubated Cardiovascular: RRR, no s3, s4 EXT ++ Significant edema and erythema bilateral lower extremity, patient also has blistering on both feet given the edema, whittish overcrust/crusting++ Neurologic: sedated Skin: other - As above Brett Mcclain MD March 20, 2020 11:13
--- NOTE | 2020-03-20 11:23 | Infectious Diseases Prog Note ---
Assessment/Plan Assessment/Plan IMPRESSION: 1. Bilateral leg cellulitis,Pseudomonas in culture 2. Anemia. 3. Hypoxemic respiratory failure 4. Thrombocytopenia. 5. Homeless 6. Morbid obesity. 7. Cirrhosis 8. COVID19 pneumonia Positive03/07-03/12 9. Hepatitis C 10.septic shock 11. Pneumonia with Stenotrophomonas RECOMMENDATION: Will f/u COVID19 test Finished Plaquenil & Zithromax course Change Meropenem to Levaquin Will f/u Sputum culture Will give a dose of Ivermectin Negative VQ scan Subjective ROS Limited/Unobtainable: Yes Constitutional: Reports: fever, other - As=327.8 Allergies: Coded Allergies: No Known Allergies (Unverified , 02/29/20) Objective Vital Signs Last 24 Hour Vital Signs Date Time Temp Pulse Resp B/P (MAP) Pulse Ox O2 Delivery O2 Flow Rate FiO2 03/20/20 10:34 59 25 100 03/20/20 07:12 40 Mechanical Ventilator 100 03/20/20 07:08 82 25 100 03/20/20 07:00 67 41 88/52 (64) 96 03/20/20 07:00 40 88/52 Mechanical Ventilator 03/20/20 07:00 88/52 03/20/20 07:00 87/54 03/20/20 07:00 40 Mechanical Ventilator 03/20/20 06:57 87/54 03/20/20 06:45 68 48 87/54 (65) 95 03/20/20 06:45 87/54 03/20/20 06:30 103/63 03/20/20 06:30 71 50 103/63 (76) 95 03/20/20 06:21 47 141/87 Mechanical Ventilator 100 03/20/20 06:15 89 53 141/87 (105) 93 03/20/20 06:15 141/87 03/20/20 06:00 92 42 159/92 (114) 92 03/20/20 06:00 42 159/92 Mechanical Ventilator 100 03/20/20 06:00 159/92 03/20/20 06:00 159/92 03/20/20 06:00 42 Mechanical Ventilator 100 03/20/20 05:45 160/93 03/20/20 05:45 160/93 03/20/20 05:45 88 48 160/93 (115) 94 03/20/20 05:30 146/82 03/20/20 05:30 146/82 03/20/20 05:30 91 46 146/82 (103) 94 03/20/20 05:24 93 25 100 03/20/20 05:15 147/85 03/20/20 05:15 147/85 03/20/20 05:15 94 39 147/85 (105) 93 03/20/20 05:00 25 149/85 Mechanical Ventilator 100 03/20/20 05:00 149/85 03/20/20 05:00 149/85 03/20/20 05:00 25 Mechanical Ventilator 100 03/20/20 05:00 95 25 149/85 (106) 92 03/20/20 04:45 95 25 150/87 (108) 92 03/20/20 04:45 25 150/87 Mechanical Ventilator 100 03/20/20 04:39 100.9 03/20/20 04:30 26 147/86 Mechanical Ventilator 100 03/20/20 04:30 96 26 147/86 (106) 92 03/20/20 04:15 93 27 145/84 (104) 91 03/20/20 04:15 29 147/86 Mechanical Ventilator 100 03/20/20 04:00 101.8 91 25 125/75 (92) 94 03/20/20 04:00 26 145/84 Mechanical Ventilator 100 03/20/20 04:00 145/84 03/20/20 04:00 145/84 03/20/20 04:00 26 Mechanical Ventilator 100 03/20/20 04:00 80 03/20/20 04:00 Mechanical Ventilator 03/20/20 04:00 100 03/20/20 03:48 77 26 87/49 (62) 94 03/20/20 03:45 79 25 89/48 (62) 94 03/20/20 03:42 76 25 100 03/20/20 03:30 76 27 82/44 (57) 93 03/20/20 03:29 22 109/58 Mechanical Ventilator 100 03/20/20 03:15 95 19 109/58 (75) 94 03/20/20 03:15 96 31 100 03/20/20 03:00 97 42 135/73 (93) 92 03/20/20 02:45 38 135/73 Mechanical Ventilator 100 03/20/20 02:45 99 35 115/78 (90) 91 03/20/20 02:30 34 115/78 Mechanical Ventilator 100 03/20/20 02:30 99 30 126/63 (84) 91 03/20/20 02:15 32 126/63 Mechanical Ventilator 100 03/20/20 02:15 99 35 125/74 (91) 91 03/20/20 02:00 100 32 123/83 (96) 90 03/20/20 02:00 32 123/83 Mechanical Ventilator 100 03/20/20 02:00 123/83 03/20/20 02:00 123/83 03/20/20 02:00 32 Mechanical Ventilator 100 03/20/20 01:45 38 133/78 Mechanical Ventilator 100 03/20/20 01:45 38 Mechanical Ventilator 100 03/20/20 01:45 100 28 133/78 (96) 90 03/20/20 01:30 100 28 133/80 (97) 90 03/20/20 01:30 30 133/78 Mechanical Ventilator 100 03/20/20 01:30 30 Mechanical Ventilator 100 03/20/20 01:30 98 30 100 03/20/20 01:15 100 32 124/74 (91) 90 03/20/20 01:15 23 133/80 Mechanical Ventilator 100 03/20/20 01:15 23 Mechanical Ventilator 100 03/20/20 01:00 99 24 132/75 (94) 90 03/20/20 01:00 29 124/75 Mechanical Ventilator 100 03/20/20 01:00 124/74 03/20/20 01:00 124/74 03/20/20 01:00 29 Mechanical Ventilator 100 03/20/20 00:45 28 131/84 Mechanical Ventilator 100 03/20/20 00:45 100 24 131/84 (100) 89 03/20/20 00:30 100 20 133/95 (108) 89 03/20/20 00:30 29 131/84 Mechanical Ventilator 100 03/20/20 00:15 25 133/95 Mechanical Ventilator 100 03/20/20 00:00 96 03/20/20 00:00 99.6 98 14 114/65 (81) 96 03/20/20 00:00 14 114/65 Mechanical Ventilator 100 03/20/20 00:00 114/65 03/20/20 00:00 114/65 03/20/20 00:00 14 Mechanical Ventilator 100 03/20/20 00:00 100 03/20/20 00:00 Mechanical Ventilator 03/19/20 23:45 91 23 110/59 (76) 86 03/19/20 23:45 114/65 03/19/20 23:40 100 25 137/90 (106) 90 03/19/20 23:39 17 123/81 Mechanical Ventilator 100 03/19/20 23:30 100 20 123/81 (95) 93 03/19/20 23:30 110/59 03/19/20 23:30 99 31 100 03/19/20 23:15 123/81 03/19/20 23:15 103 24 131/70 (90) 91 03/19/20 23:00 96/55 03/19/20 23:00 35 131/70 Mechanical Ventilator 100 03/19/20 23:00 96/55 03/19/20 23:00 27 Mechanical Ventilator 100 03/19/20 23:00 100.5 83 28 95/55 (68) 85 03/19/20 22:45 82/47 03/19/20 22:45 80 21 82/47 (59) 91 03/19/20 22:30 99 34 120/73 (89) 88 03/19/20 22:28 27 Mechanical Ventilator 100 03/19/20 22:15 96 19 115/75 (88) 88 03/19/20 22:07 95 25 119/78 (92) 87 03/19/20 22:00 119/78 03/19/20 22:00 23 119/78 Mechanical Ventilator 100 03/19/20 22:00 119/78 03/19/20 22:00 23 Mechanical Ventilator 100 03/19/20 22:00 100.0 82 25 82/49 (60) 91 03/19/20 21:45 98 21 89/51 (64) 92 03/19/20 21:45 119/78 03/19/20 21:45 82/49 03/19/20 21:37 119/64 03/19/20 21:30 100 23 119/64 (82) 92 03/19/20 21:30 99 30 100 03/19/20 21:30 89/51 03/19/20 21:15 96 22 92/70 (77) 92 03/19/20 21:15 119/64 03/19/20 21:00 93 26 89/55 (66) 94 03/19/20 21:00 89/55 03/19/20 21:00 21 89/51 Mechanical Ventilator 100 03/19/20 21:00 89/55 03/19/20 21:00 26 Mechanical Ventilator 100 03/19/20 20:30 96 19 89/51 (64) 78 03/19/20 20:00 100 03/19/20 20:00 110/61 03/19/20 20:00 22 117/64 Mechanical Ventilator 100 03/19/20 20:00 110/61 03/19/20 20:00 26 Mechanical Ventilator 100 03/19/20 20:00 102 03/19/20 20:00 Mechanical Ventilator 03/19/20 20:00 102 26 110/69 (83) 90 03/19/20 19:30 102 20 112/72 (85) 90 03/19/20 19:30 97 31 100 03/19/20 19:00 103 19 108/68 (81) 89 03/19/20 19:00 103 19 108/68 (81) 89 03/19/20 19:00 108/68 03/19/20 19:00 19 108/68 Mechanical Ventilator 03/19/20 19:00 108/68 03/19/20 19:00 19 Mechanical Ventilator 03/19/20 18:45 103 26 109/75 (86) 89 03/19/20 18:30 104 24 106/71 (83) 90 03/19/20 18:30 104 24 106/71 (83) 90 03/19/20 18:15 104 20 105/68 (80) 89 03/19/20 18:00 105/65 03/19/20 18:00 19 105/65 Mechanical Ventilator 03/19/20 18:00 105/65 03/19/20 18:00 19 Mechanical Ventilator 03/19/20 18:00 100.0 105 19 105/65 (78) 89 03/19/20 17:30 106 18 115/64 (81) 89 03/19/20 17:00 109/69 03/19/20 17:00 12 109/69 Mechanical Ventilator 03/19/20 17:00 109/69 03/19/20 17:00 12 Mechanical Ventilator 03/19/20 17:00 106 12 109/69 (82) 89 03/19/20 16:53 28 113/65 Mechanical Ventilator 03/19/20 16:30 107 12 118/70 (86) 89 03/19/20 16:30 106 28 100 03/19/20 16:15 110 13 117/74 (88) 88 03/19/20 16:11 100.5 122 29 126/86 (99) 89 03/19/20 16:00 100 03/19/20 16:00 Mechanical Ventilator 03/19/20 16:00 106 03/19/20 16:00 126/86 03/19/20 16:00 29 126/86 Mechanical Ventilator 03/19/20 16:00 126/86 03/19/20 16:00 29 Mechanical Ventilator 03/19/20 15:30 116 24 156/88 (110) 91 03/19/20 15:15 121 31 168/127 (141) 88 03/19/20 15:00 168/127 03/19/20 15:00 31 168/127 Mechanical Ventilator 03/19/20 15:00 168/127 03/19/20 15:00 31 Mechanical Ventilator 03/19/20 15:00 125 33 100 03/19/20 14:30 124 31 149/80 (103) 86 03/19/20 14:00 156/130 03/19/20 14:00 30 156/130 Mechanical Ventilator 03/19/20 14:00 156/130 03/19/20 14:00 30 Mechanical Ventilator 03/19/20 14:00 123 30 156/130 (139) 90 03/19/20 13:30 124 41 149/92 (111) 92 03/19/20 13:00 120 23 141/77 (98) 92 03/19/20 13:00 141/77 03/19/20 13:00 141/77 03/19/20 13:00 23 Mechanical Ventilator 03/19/20 12:30 117 28 150/60 (90) 91 03/19/20 12:17 122 35 100 03/19/20 12:00 100 03/19/20 12:00 146/103 03/19/20 12:00 146/103 03/19/20 12:00 26 Mechanical Ventilator 03/19/20 12:00 117 03/19/20 12:00 117 26 146/103 (117) 90 03/19/20 12:00 Mechanical Ventilator 03/19/20 11:48 132/79 03/19/20 11:30 115 20 142/66 (91) 92 03/19/20 11:18 85 19 145/90 (108) 93 Height (Feet): 5 Height (Inches): 1.00 Weight (Pounds): 238 HEENT: other - orally intubated Respiratory/Chest: other - on ventiltor Cardiovascular: normal rate, other - PICC line Abdomen: other - NG tube Extremities: other - edema Neurologic/Psychiatric: other - sedated Laboratory Tests Test 03/19/20 15:00 03/19/20 18:30 03/20/20 05:37 03/20/20 08:24 Arterial Blood pH 7.406 (7.350-7.450) 7.340 (7.350-7.450) 7.296 (7.350-7.450) Arterial Blood Partial Pressure CO2 41.1 mmHg (35.0-45.0) 58.5 mmHg (35.0-45.0) *H 51.5 mmHg (35.0-45.0) H Arterial Blood Partial Pressure O2 50.2 mmHg (75.0-100.0) L 62.5 mmHg (75.0-100.0) L 65.7 mmHg (75.0-100.0) L Arterial Blood HCO3 25.2 mmol/L (22.0-26.0) 30.9 mmol/L (22.0-26.0) H 24.5 mmol/L (22.0-26.0) Arterial Blood Oxygen Saturation 85.6 % (95-100) *L 90.1 % (95-100) L 89.8 % (95-100) *L Arterial Blood Base Excess 0.5 (-2-2) 4.1 (-2-2) H -2.3 (-2-2) L Joaquin Test Positive Positive N/a White Blood Count 11.7 K/UL (4.8-10.8) H Red Blood Count 3.03 M/UL (4.20-5.40) L Hemoglobin 10.1 G/DL (12.0-16.0) L Hematocrit 30.7 % (37.0-47.0) L Mean Corpuscular Volume 101 FL (80-99) H Mean Corpuscular Hemoglobin 33.4 PG (27.0-31.0) H Mean Corpuscular Hemoglobin Concent 32.9 G/DL (32.0-36.0) Red Cell Distribution Width 17.3 % (11.6-14.8) H Platelet Count 162 K/UL (150-450) Mean Platelet Volume 5.8 FL (6.5-10.1) L Neutrophils (%) (Auto) 77.5 % (45.0-75.0) H Lymphocytes (%) (Auto) 10.6 % (20.0-45.0) L Monocytes (%) (Auto) 11.0 % (1.0-10.0) H Eosinophils (%) (Auto) 0.0 % (0.0-3.0) Basophils (%) (Auto) 0.8 % (0.0-2.0) D-Dimer 9.71 mg/L FEU (0.00-0.49) H Sodium Level 123 MMOL/L (136-145) L Potassium Level 5.0 MMOL/L (3.5-5.1) Chloride Level 90 MMOL/L (98-107) L Carbon Dioxide Level 28 MMOL/L (21-32) Anion Gap 5 mmol/L (5-15) Blood Urea Nitrogen 20 mg/dL (7-18) H Creatinine 0.8 MG/DL (0.55-1.30) Estimat Glomerular Filtration Rate > 60 mL/min (>60) Glucose Level 193 MG/DL (74-106) H Hemoglobin A1c 5.4 % (4.3-6.0) Uric Acid 4.5 MG/DL (2.6-7.2) Calcium Level 7.9 MG/DL (8.5-10.1) L Phosphorus Level 3.4 MG/DL (2.5-4.9) Magnesium Level 2.1 MG/DL (1.8-2.4) Total Bilirubin 2.1 MG/DL (0.2-1.0) H Direct Bilirubin 1.1 MG/DL (0.0-0.3) H Gamma Glutamyl Transpeptidase 106 U/L (5-85) H Aspartate Amino Transf (AST/SGOT) 96 U/L (15-37) H Alanine Aminotransferase (ALT/SGPT) 25 U/L (12-78) Alkaline Phosphatase 142 U/L (46-116) H Ammonia 116 umol/L (11-32) H Lactate Dehydrogenase 625 U/L (81-234) H Troponin I 0.409 ng/mL (0.000-0.056) C-Reactive Protein, Quantitative 8.8 mg/dL (0.00-0.90) H Pro-B-Type Natriuretic Peptide > 58829 pg/mL (0-125) H Total Protein 9.4 G/DL (6.4-8.2) H Albumin 2.4 G/DL (3.4-5.0) L Globulin 7.0 g/dL Albumin/Globulin Ratio 0.3 (1.0-2.7) L Triglycerides Level 284 MG/DL (30-150) H Cholesterol Level 74 MG/DL (< 200) LDL Cholesterol 52 mg/dL (<100) HDL Cholesterol 8 MG/DL (40-60) L Cholesterol/HDL Ratio 9.3 (3.3-4.4) H Thyroid Stimulating Hormone (TSH) 4.026 uiU/mL (0.358-3.740) Current Medications Medications (Trade) Dose Ordered Sig/Dolores Route PRN Reason Start Time Stop Time Status Last Admin Dose Admin Acetaminophen (Tylenol) 650 mg Q4H PRN ORAL Temp >100 03/13/20 14:53 04/12/20 14:52 03/19/20 06:25 Acetaminophen (Tylenol) 650 mg Q4H PRN ORAL Mild Pain (Pain Scale 1-3) 03/13/20 14:53 04/12/20 14:52 03/20/20 04:09 Chlorhexidine Gluconate (Lucretia-Hex 2%) 1 applic DAILY@2000 TOPIC 03/13/20 20:00 06/11/20 19:59 03/19/20 20:56 Dextrose (Dextrose 50%) 25 ml Q30M PRN IV Hypoglycemia 03/16/20 09:30 06/14/20 09:29 Dextrose (Dextrose 50%) 50 ml Q30M PRN IV Hypoglycemia 03/16/20 09:30 06/14/20 09:29 Dopamine HCl/ Dextrose 250 ml @ 0 mls/hr Q24H IV 03/16/20 19:30 06/14/20 19:29 03/19/20 21:37 Enoxaparin Sodium (Lovenox) 40 mg DAILY SUBQ 03/19/20 09:00 04/03/20 08:59 03/20/20 09:32 Fentanyl Citrate 2500 mcg/Sodium Chloride 250 ml @ 0 mls/hr Q24H IV 03/15/20 18:30 03/22/20 18:29 03/20/20 07:12 Insulin Aspart (NovoLOG) Q6HR SUBQ 03/16/20 12:00 06/14/20 11:59 03/20/20 05:56 Lactulose (Cephulac) 30 gm THREE TIMES A DAY NG 03/20/20 13:00 04/19/20 12:59 Levothyroxine Sodium (Synthroid) 50 mcg DAILY IV 03/21/20 09:00 04/17/20 11:59 Levothyroxine Sodium (Synthroid) 50 mcg ONCE IV 03/20/20 11:30 03/20/20 12:30 Meropenem 1 gm/ Sodium Chloride 55 ml @ 110 mls/hr Q8HR IVPB 03/16/20 14:00 03/21/20 13:59 03/20/20 05:38 Methylprednisolone Sodium Succinate (Solu-MEDROL) 50 mg EVERY 12 HOURS IVP 03/20/20 21:00 06/17/20 20:59 Metoclopramide HCl (Reglan) 10 mg Q6H IVP 03/17/20 10:15 04/16/20 10:14 03/20/20 09:37 Midodrine (Pro-Amatine) 10 mg THREE TIMES A DAY NG 03/20/20 13:00 06/18/20 12:59 Mirtazapine (Remeron) 7.5 mg BEDTIME PRN ORAL SLEEP 03/13/20 14:55 06/11/20 14:54 Non-Formulary Medication (Non-Formulary Med) 1 ea DAILY IV 03/18/20 09:00 04/17/20 08:59 UNV Norepinephrine Bitartrate 16 mg/ Dextrose 500 ml @ 0 mls/hr Q24H IV 03/17/20 21:00 04/16/20 13:02 03/20/20 06:57 Polyethylene Glycol (Miralax) 17 gm BEDTIME ORAL 03/19/20 21:00 04/18/20 20:59 03/19/20 20:57 Propofol 100 ml @ 0 mls/hr Q24H IV 03/19/20 23:30 03/21/20 23:29 03/20/20 06:21 Rifaximin (Xifaxan) 550 mg EVERY 12 HOURS ORAL 03/18/20 09:00 03/25/20 08:59 03/20/20 09:30 Sodium Chloride 500 ml @ 30 mls/hr ONCE ONCE IV 03/20/20 10:00 03/21/20 02:39 Tocilizumab 400 mg/Sodium Chloride 130 ml @ 110 mls/hr ONCE IV 03/20/20 12:00 03/20/20 13:30 Vasopressin 100 units/Sodium Chloride 100 ml @ 0 mls/hr Q24H PRN IV For hypotension 03/16/20 11:00 04/15/20 10:59 03/19/20 18:03 Jonathon Shah MD March 20, 2020 11:23
[2020-03-20] MEDS: Levofloxacin 750mg tab NG SCH (11:47)
[2020-03-20] MEDS ORDERED: Tocilizumab 400 MG in NS 110 ML IV SCH (12:00)
[2020-03-20] MEDS: Midodrine 10mg tab NG SCH ×2 (12:09→18:03)
[2020-03-20] MEDS: Lactulose 20gm/30ml UDC NG SCH ×2 (12:09→18:03)
--- NOTE | 2020-03-20 13:14 | Diagnostic Imaging Report ---
Indication: Shortness of breath Technique: One view of the chest Comparison: 03/16/2020 Findings: Stable satisfactory positions of endotracheal tube, orogastric tube, left arm PICC. Allowing for differences in technique, bilateral diffuse infiltrates are probably unchanged. No definite effusions. Upper limits of normal heart size. Irregular density projects in the midline, unchanged, etiology uncertain, may indicate prior vertebral augmentation procedure. Impression: Unchanged, over 4 days, findings as above.
[2020-03-20] MEDS ORDERED: Hydrocortisone 100mg Inj IV SCH (14:00)
--- NOTE | 2020-03-20 15:08 | Surgery Progress Note ---
Surgery Progress Note Subjective Additional Comments ill appearing sedated saturations better today cxr noted stable labs reviewed Objective Last 24 Hour Vital Signs Date Time Temp Pulse Resp B/P (MAP) Pulse Ox O2 Delivery O2 Flow Rate FiO2 03/20/20 14:30 76 25 92/56 (68) 100 03/20/20 14:15 102 23 105/61 (76) 94 03/20/20 14:00 106 26 123/68 (86) 88 03/20/20 14:00 100 03/20/20 13:54 104 24 119/74 (89) 98 03/20/20 13:45 85 22 112/69 (83) 100 03/20/20 13:30 79 23 90/54 (66) 100 03/20/20 13:15 100 18 114/71 (85) 87 03/20/20 13:00 100 03/20/20 13:00 102 24 125/75 (92) 86 03/20/20 12:45 101 23 139/88 (105) 94 03/20/20 12:30 99 24 124/75 (91) 83 03/20/20 12:15 97 22 152/80 (104) 89 03/20/20 12:00 98.8 93 26 137/100 (112) 93 03/20/20 12:00 100 03/20/20 11:45 89 19 144/93 (110) 94 03/20/20 11:30 89 19 150/97 (114) 94 03/20/20 11:15 86 26 156/102 (120) 96 03/20/20 11:00 112/71 03/20/20 11:00 72 25 153/93 (113) 93 03/20/20 10:45 74 26 162/94 (116) 93 03/20/20 10:34 59 25 100 03/20/20 10:30 57 25 90/63 (72) 95 03/20/20 10:15 56 26 123/72 (89) 97 03/20/20 10:00 58 28 118/69 (85) 97 03/20/20 09:45 60 26 109/66 (80) 96 03/20/20 09:30 65 25 122/72 (89) 94 03/20/20 09:15 69 25 151/85 (107) 93 03/20/20 09:00 77 25 157/91 (113) 91 03/20/20 08:45 78 26 166/97 (120) 91 03/20/20 08:30 78 29 163/92 (115) 91 03/20/20 08:15 81 40 158/95 (116) 93 03/20/20 08:00 97.7 81 47 161/92 (115) 95 03/20/20 08:00 100 03/20/20 07:45 82 47 158/89 (112) 95 03/20/20 07:30 82 45 149/87 (107) 95 03/20/20 07:15 74 44 130/77 (94) 96 03/20/20 07:12 40 Mechanical Ventilator 100 03/20/20 07:08 82 25 100 03/20/20 07:00 67 41 88/52 (64) 96 03/20/20 07:00 40 88/52 Mechanical Ventilator 100 03/20/20 07:00 88/52 03/20/20 07:00 87/54 03/20/20 07:00 40 Mechanical Ventilator 03/20/20 06:57 87/54 03/20/20 06:45 68 48 87/54 (65) 95 03/20/20 06:45 87/54 03/20/20 06:30 103/63 03/20/20 06:30 71 50 103/63 (76) 95 03/20/20 06:21 47 141/87 Mechanical Ventilator 03/20/20 06:15 89 53 141/87 (105) 93 03/20/20 06:15 141/87 03/20/20 06:00 92 42 159/92 (114) 92 03/20/20 06:00 42 159/92 Mechanical Ventilator 100 03/20/20 06:00 159/92 03/20/20 06:00 159/92 03/20/20 06:00 42 Mechanical Ventilator 03/20/20 05:45 160/93 03/20/20 05:45 160/93 03/20/20 05:45 88 48 160/93 (115) 94 03/20/20 05:30 146/82 03/20/20 05:30 146/82 03/20/20 05:30 91 46 146/82 (103) 94 03/20/20 05:24 93 25 100 03/20/20 05:15 147/85 03/20/20 05:15 147/85 03/20/20 05:15 94 39 147/85 (105) 93 03/20/20 05:00 25 149/85 Mechanical Ventilator 100 03/20/20 05:00 149/85 03/20/20 05:00 149/85 03/20/20 05:00 25 Mechanical Ventilator 100 03/20/20 05:00 95 25 149/85 (106) 92 03/20/20 04:45 95 25 150/87 (108) 92 03/20/20 04:45 25 150/87 Mechanical Ventilator 100 03/20/20 04:39 100.9 03/20/20 04:30 26 147/86 Mechanical Ventilator 100 03/20/20 04:30 96 26 147/86 (106) 92 03/20/20 04:15 93 27 145/84 (104) 91 03/20/20 04:15 29 147/86 Mechanical Ventilator 100 03/20/20 04:00 101.8 91 25 125/75 (92) 94 03/20/20 04:00 26 145/84 Mechanical Ventilator 100 03/20/20 04:00 145/84 03/20/20 04:00 145/84 03/20/20 04:00 26 Mechanical Ventilator 100 03/20/20 04:00 80 03/20/20 04:00 Mechanical Ventilator 03/20/20 04:00 100 03/20/20 03:48 77 26 87/49 (62) 94 03/20/20 03:45 79 25 89/48 (62) 94 03/20/20 03:42 76 25 100 03/20/20 03:30 76 27 82/44 (57) 93 03/20/20 03:29 22 109/58 Mechanical Ventilator 100 03/20/20 03:15 95 19 109/58 (75) 94 03/20/20 03:15 96 31 100 03/20/20 03:00 97 42 135/73 (93) 92 03/20/20 02:45 38 135/73 Mechanical Ventilator 100 03/20/20 02:45 99 35 115/78 (90) 91 03/20/20 02:30 34 115/78 Mechanical Ventilator 100 03/20/20 02:30 99 30 126/63 (84) 91 03/20/20 02:15 32 126/63 Mechanical Ventilator 100 03/20/20 02:15 99 35 125/74 (91) 91 03/20/20 02:00 100 32 123/83 (96) 90 03/20/20 02:00 32 123/83 Mechanical Ventilator 100 03/20/20 02:00 123/83 03/20/20 02:00 123/83 03/20/20 02:00 32 Mechanical Ventilator 100 03/20/20 01:45 38 133/78 Mechanical Ventilator 100 03/20/20 01:45 38 Mechanical Ventilator 100 03/20/20 01:45 100 28 133/78 (96) 90 03/20/20 01:30 100 28 133/80 (97) 90 03/20/20 01:30 30 133/78 Mechanical Ventilator 100 03/20/20 01:30 30 Mechanical Ventilator 100 03/20/20 01:30 98 30 100 03/20/20 01:15 100 32 124/74 (91) 90 03/20/20 01:15 23 133/80 Mechanical Ventilator 100 03/20/20 01:15 23 Mechanical Ventilator 100 03/20/20 01:00 99 24 132/75 (94) 90 03/20/20 01:00 29 124/75 Mechanical Ventilator 100 03/20/20 01:00 124/74 03/20/20 01:00 124/74 03/20/20 01:00 29 Mechanical Ventilator 100 03/20/20 00:45 28 131/84 Mechanical Ventilator 100 03/20/20 00:45 100 24 131/84 (100) 89 03/20/20 00:30 100 20 133/95 (108) 89 03/20/20 00:30 29 131/84 Mechanical Ventilator 100 03/20/20 00:15 25 133/95 Mechanical Ventilator 100 03/20/20 00:00 96 03/20/20 00:00 99.6 98 14 114/65 (81) 96 03/20/20 00:00 14 114/65 Mechanical Ventilator 100 03/20/20 00:00 114/65 03/20/20 00:00 114/65 03/20/20 00:00 14 Mechanical Ventilator 100 03/20/20 00:00 100 03/20/20 00:00 Mechanical Ventilator 03/19/20 23:45 91 23 110/59 (76) 86 03/19/20 23:45 114/65 03/19/20 23:40 100 25 137/90 (106) 90 03/19/20 23:39 17 123/81 Mechanical Ventilator 100 03/19/20 23:30 100 20 123/81 (95) 93 03/19/20 23:30 110/59 03/19/20 23:30 99 31 100 03/19/20 23:15 123/81 03/19/20 23:15 103 24 131/70 (90) 91 03/19/20 23:00 96/55 03/19/20 23:00 35 131/70 Mechanical Ventilator 100 03/19/20 23:00 96/55 03/19/20 23:00 27 Mechanical Ventilator 100 03/19/20 23:00 100.5 83 28 95/55 (68) 85 03/19/20 22:45 82/47 03/19/20 22:45 80 21 82/47 (59) 91 03/19/20 22:30 99 34 120/73 (89) 88 03/19/20 22:28 27 Mechanical Ventilator 100 03/19/20 22:15 96 19 115/75 (88) 88 03/19/20 22:07 95 25 119/78 (92) 87 03/19/20 22:00 119/78 03/19/20 22:00 23 119/78 Mechanical Ventilator 100 03/19/20 22:00 119/78 03/19/20 22:00 23 Mechanical Ventilator 100 03/19/20 22:00 100.0 82 25 82/49 (60) 91 03/19/20 21:45 98 21 89/51 (64) 92 03/19/20 21:45 119/78 03/19/20 21:45 82/49 03/19/20 21:37 119/64 03/19/20 21:30 100 23 119/64 (82) 92 03/19/20 21:30 99 30 100 03/19/20 21:30 89/51 03/19/20 21:15 96 22 92/70 (77) 92 03/19/20 21:15 119/64 03/19/20 21:00 93 26 89/55 (66) 94 03/19/20 21:00 89/55 03/19/20 21:00 21 89/51 Mechanical Ventilator 100 03/19/20 21:00 89/55 5/3/20 21:00 26 Mechanical Ventilator 100 03/19/20 20:30 96 19 89/51 (64) 78 03/19/20 20:00 100 03/19/20 20:00 110/61 03/19/20 20:00 22 117/64 Mechanical Ventilator 100 03/19/20 20:00 110/61 03/19/20 20:00 26 Mechanical Ventilator 100 03/19/20 20:00 102 03/19/20 20:00 Mechanical Ventilator 03/19/20 20:00 102 26 110/69 (83) 90 03/19/20 19:30 102 20 112/72 (85) 90 03/19/20 19:30 97 31 100 03/19/20 19:00 103 19 108/68 (81) 89 03/19/20 19:00 103 19 108/68 (81) 89 03/19/20 19:00 108/68 03/19/20 19:00 19 108/68 Mechanical Ventilator 03/19/20 19:00 108/68 03/19/20 19:00 19 Mechanical Ventilator 03/19/20 18:45 103 26 109/75 (86) 89 03/19/20 18:30 104 24 106/71 (83) 90 03/19/20 18:30 104 24 106/71 (83) 90 03/19/20 18:15 104 20 105/68 (80) 89 03/19/20 18:00 105/65 03/19/20 18:00 19 105/65 Mechanical Ventilator 03/19/20 18:00 105/65 03/19/20 18:00 19 Mechanical Ventilator 03/19/20 18:00 100.0 105 19 105/65 (78) 89 03/19/20 17:30 106 18 115/64 (81) 89 03/19/20 17:00 109/69 03/19/20 17:00 12 109/69 Mechanical Ventilator 03/19/20 17:00 109/69 03/19/20 17:00 12 Mechanical Ventilator 03/19/20 17:00 106 12 109/69 (82) 89 03/19/20 16:53 28 113/65 Mechanical Ventilator 03/19/20 16:30 107 12 118/70 (86) 89 03/19/20 16:30 106 28 100 03/19/20 16:15 110 13 117/74 (88) 88 03/19/20 16:11 100.5 122 29 126/86 (99) 89 03/19/20 16:00 100 03/19/20 16:00 Mechanical Ventilator 03/19/20 16:00 106 03/19/20 16:00 126/86 03/19/20 16:00 29 126/86 Mechanical Ventilator 03/19/20 16:00 126/86 03/19/20 16:00 29 Mechanical Ventilator 03/19/20 15:30 116 24 156/88 (110) 91 03/19/20 15:15 121 31 168/127 (141) 88 I&O Intake and Output 03/19/20 03/20/20 19:00 07:00 Intake Total 1608.4004 ml 1635.79152 ml Output Total 620 ml 370 ml Balance 988.4004 ml 1265.53258 ml IV Total 1128.4004 ml 1205.62482 ml Tube Feeding 360 ml 250 ml Other 120 ml 180 ml Output Urine Total 620 ml 370 ml # Bowel Movements 1 3 Dressing: other Wound: other Drains: other Cardiovascular: RSR Respiratory: decreased breath sounds Abdomen: soft, non-tender, present bowel sounds, non-distended Extremities: edema, no cyanosis, other Laboratory Tests Test 03/19/20 18:30 03/20/20 05:37 03/20/20 08:24 Arterial Blood pH 7.340 (7.350-7.450) 7.296 (7.350-7.450) Arterial Blood Partial Pressure CO2 58.5 mmHg (35.0-45.0) *H 51.5 mmHg (35.0-45.0) H Arterial Blood Partial Pressure O2 62.5 mmHg (75.0-100.0) L 65.7 mmHg (75.0-100.0) L Arterial Blood HCO3 30.9 mmol/L (22.0-26.0) H 24.5 mmol/L (22.0-26.0) Arterial Blood Oxygen Saturation 90.1 % (95-100) L 89.8 % (95-100) *L Arterial Blood Base Excess 4.1 (-2-2) H -2.3 (-2-2) L Joaquin Test Positive N/a White Blood Count 11.7 K/UL (4.8-10.8) H Red Blood Count 3.03 M/UL (4.20-5.40) L Hemoglobin 10.1 G/DL (12.0-16.0) L Hematocrit 30.7 % (37.0-47.0) L Mean Corpuscular Volume 101 FL (80-99) H Mean Corpuscular Hemoglobin 33.4 PG (27.0-31.0) H Mean Corpuscular Hemoglobin Concent 32.9 G/DL (32.0-36.0) Red Cell Distribution Width 17.3 % (11.6-14.8) H Platelet Count 162 K/UL (150-450) Mean Platelet Volume 5.8 FL (6.5-10.1) L Neutrophils (%) (Auto) 77.5 % (45.0-75.0) H Lymphocytes (%) (Auto) 10.6 % (20.0-45.0) L Monocytes (%) (Auto) 11.0 % (1.0-10.0) H Eosinophils (%) (Auto) 0.0 % (0.0-3.0) Basophils (%) (Auto) 0.8 % (0.0-2.0) D-Dimer 9.71 mg/L FEU (0.00-0.49) H Sodium Level 123 MMOL/L (136-145) L Potassium Level 5.0 MMOL/L (3.5-5.1) Chloride Level 90 MMOL/L (98-107) L Carbon Dioxide Level 28 MMOL/L (21-32) Anion Gap 5 mmol/L (5-15) Blood Urea Nitrogen 20 mg/dL (7-18) H Creatinine 0.8 MG/DL (0.55-1.30) Estimat Glomerular Filtration Rate > 60 mL/min (>60) Glucose Level 193 MG/DL (74-106) H Hemoglobin A1c 5.4 % (4.3-6.0) Uric Acid 4.5 MG/DL (2.6-7.2) Calcium Level 7.9 MG/DL (8.5-10.1) L Phosphorus Level 3.4 MG/DL (2.5-4.9) Magnesium Level 2.1 MG/DL (1.8-2.4) Total Bilirubin 2.1 MG/DL (0.2-1.0) H Direct Bilirubin 1.1 MG/DL (0.0-0.3) H Gamma Glutamyl Transpeptidase 106 U/L (5-85) H Aspartate Amino Transf (AST/SGOT) 96 U/L (15-37) H Alanine Aminotransferase (ALT/SGPT) 25 U/L (12-78) Alkaline Phosphatase 142 U/L (46-116) H Ammonia 116 umol/L (11-32) H Lactate Dehydrogenase 625 U/L (81-234) H Troponin I 0.409 ng/mL (0.000-0.056) C-Reactive Protein, Quantitative 8.8 mg/dL (0.00-0.90) H Pro-B-Type Natriuretic Peptide > 11987 pg/mL (0-125) H Total Protein 9.4 G/DL (6.4-8.2) H Albumin 2.4 G/DL (3.4-5.0) L Globulin 7.0 g/dL Albumin/Globulin Ratio 0.3 (1.0-2.7) L Triglycerides Level 284 MG/DL (30-150) H Cholesterol Level 74 MG/DL (< 200) LDL Cholesterol 52 mg/dL (<100) HDL Cholesterol 8 MG/DL (40-60) L Cholesterol/HDL Ratio 9.3 (3.3-4.4) H Thyroid Stimulating Hormone (TSH) 4.026 uiU/mL (0.358-3.740) Plan Problems: (1) Cellulitis Assessment & Plan: bilateral lower extremity cellulitis / edema chronic venous status changes dermatitis no abscess no purulent drainage ulcerations forming. keep lower extremity elevated while in bed apply skin protectant / moisturizing cream daily okay to shower okay to wrap soft after cream abx as per ID for cellulitis okay for diet duplex ordered trend labs will follow with recs thank you No evidence of deep venous thrombosis involving the visualized veins of the RIGHT lower extremity. refused eval of left COVID ++ cxr noted cont current supportive care improving labs stable improving slowly wean pressors as tolerated Patient is acutely worsened intubated on vent support 2 pressors now worsening labs worsening Prognosis is guarded we will continue with maximal support efforts (2) COVID-19 Assessment & Plan: see above Theron Sotomayor March 20, 2020 15:08
--- NOTE | 2020-03-20 17:24 | General Progress Note ---
Assessment/Plan Problem List: (1) Cellulitis ICD Codes: L03.90 - Cellulitis, unspecified SNOMED: [id number] Qualifiers: Qualified Codes: L03.119 - Cellulitis of unspecified part of limb Status: progressing, unchanged Assessment/Plan: resp failure stable h/h afebrile still low na hyponatramia is getting worse.treatment per dr valera elevated tsh pna sepsis anemia cirrhosis Subjective ROS Limited/Unobtainable: Yes Allergies: Coded Allergies: No Known Allergies (Unverified , 02/29/20) Objective Last 24 Hour Vital Signs Date Time Temp Pulse Resp B/P (MAP) Pulse Ox O2 Delivery O2 Flow Rate FiO2 03/20/20 16:58 64 26 96 Mechanical Ventilator 100 03/20/20 16:45 64 26 97/62 (74) 99 03/20/20 16:30 64 26 97/61 (73) 97 03/20/20 16:19 26 Mechanical Ventilator 100 03/20/20 16:15 66 26 93/57 (69) 91 03/20/20 16:00 97.7 68 26 97/54 (68) 94 03/20/20 16:00 69 03/20/20 15:45 71 26 96/53 (67) 80 03/20/20 15:30 68 26 41/17 (25) 99 03/20/20 15:15 70 26 95/54 (68) 99 03/20/20 15:07 64 26 100 03/20/20 15:00 74 26 91/59 (70) 98 03/20/20 14:45 76 26 94/55 (68) 100 03/20/20 14:30 76 25 92/56 (68) 100 03/20/20 14:15 102 23 105/61 (76) 94 03/20/20 14:00 106 26 123/68 (86) 88 03/20/20 14:00 100 03/20/20 13:54 104 24 119/74 (89) 98 03/20/20 13:45 85 22 112/69 (83) 100 03/20/20 13:30 79 23 90/54 (66) 100 03/20/20 13:15 100 18 114/71 (85) 87 03/20/20 13:00 100 03/20/20 13:00 102 24 125/75 (92) 86 03/20/20 12:45 101 23 139/88 (105) 94 03/20/20 12:30 99 24 124/75 (91) 83 03/20/20 12:15 97 22 152/80 (104) 89 03/20/20 12:00 98.8 93 26 137/100 (112) 93 03/20/20 12:00 82 03/20/20 12:00 100 03/20/20 11:45 89 19 144/93 (110) 94 03/20/20 11:30 89 19 150/97 (114) 94 03/20/20 11:15 86 26 156/102 (120) 96 03/20/20 11:00 112/71 03/20/20 11:00 72 25 153/93 (113) 93 03/20/20 10:45 74 26 162/94 (116) 93 03/20/20 10:34 59 25 100 03/20/20 10:30 57 25 90/63 (72) 95 03/20/20 10:15 56 26 123/72 (89) 97 03/20/20 10:00 58 28 118/69 (85) 97 03/20/20 09:45 60 26 109/66 (80) 96 03/20/20 09:30 65 25 122/72 (89) 94 03/20/20 09:15 69 25 151/85 (107) 93 03/20/20 09:00 77 25 157/91 (113) 91 03/20/20 08:45 78 26 166/97 (120) 91 03/20/20 08:30 78 29 163/92 (115) 91 03/20/20 08:15 81 40 158/95 (116) 93 03/20/20 08:00 97.7 81 47 161/92 (115) 95 03/20/20 08:00 69 03/20/20 08:00 100 03/20/20 07:45 82 47 158/89 (112) 95 03/20/20 07:30 82 45 149/87 (107) 95 03/20/20 07:15 74 44 130/77 (94) 96 03/20/20 07:12 40 Mechanical Ventilator 100 03/20/20 07:08 82 25 100 03/20/20 07:00 67 41 88/52 (64) 96 03/20/20 07:00 40 88/52 Mechanical Ventilator 100 03/20/20 07:00 88/52 03/20/20 07:00 87/54 03/20/20 07:00 40 Mechanical Ventilator 100 03/20/20 06:57 87/54 03/20/20 06:45 68 48 87/54 (65) 95 03/20/20 06:45 87/54 03/20/20 06:30 103/63 03/20/20 06:30 71 50 103/63 (76) 95 03/20/20 06:21 47 141/87 Mechanical Ventilator 100 03/20/20 06:15 89 53 141/87 (105) 93 03/20/20 06:15 141/87 03/20/20 06:00 92 42 159/92 (114) 92 03/20/20 06:00 42 159/92 Mechanical Ventilator 100 03/20/20 06:00 159/92 03/20/20 06:00 159/92 03/20/20 06:00 42 Mechanical Ventilator 03/20/20 05:45 160/93 03/20/20 05:45 160/93 03/20/20 05:45 88 48 160/93 (115) 94 03/20/20 05:30 146/82 03/20/20 05:30 146/82 03/20/20 05:30 91 46 146/82 (103) 94 03/20/20 05:24 93 25 100 03/20/20 05:15 147/85 03/20/20 05:15 147/85 03/20/20 05:15 94 39 147/85 (105) 93 03/20/20 05:00 25 149/85 Mechanical Ventilator 03/20/20 05:00 149/85 03/20/20 05:00 149/85 03/20/20 05:00 25 Mechanical Ventilator 03/20/20 05:00 95 25 149/85 (106) 92 03/20/20 04:45 95 25 150/87 (108) 92 03/20/20 04:45 25 150/87 Mechanical Ventilator 03/20/20 04:39 100.9 03/20/20 04:30 26 147/86 Mechanical Ventilator 03/20/20 04:30 96 26 147/86 (106) 92 03/20/20 04:15 93 27 145/84 (104) 91 03/20/20 04:15 29 147/86 Mechanical Ventilator 100 03/20/20 04:00 101.8 91 25 125/75 (92) 94 03/20/20 04:00 26 145/84 Mechanical Ventilator 100 03/20/20 04:00 145/84 03/20/20 04:00 145/84 03/20/20 04:00 26 Mechanical Ventilator 100 03/20/20 04:00 80 03/20/20 04:00 Mechanical Ventilator 03/20/20 04:00 100 03/20/20 03:48 77 26 87/49 (62) 94 03/20/20 03:45 79 25 89/48 (62) 94 03/20/20 03:42 76 25 100 03/20/20 03:30 76 27 82/44 (57) 93 03/20/20 03:29 22 109/58 Mechanical Ventilator 100 03/20/20 03:15 95 19 109/58 (75) 94 03/20/20 03:15 96 31 100 03/20/20 03:00 97 42 135/73 (93) 92 03/20/20 02:45 38 135/73 Mechanical Ventilator 100 03/20/20 02:45 99 35 115/78 (90) 91 03/20/20 02:30 34 115/78 Mechanical Ventilator 100 03/20/20 02:30 99 30 126/63 (84) 91 03/20/20 02:15 32 126/63 Mechanical Ventilator 100 03/20/20 02:15 99 35 125/74 (91) 91 03/20/20 02:00 100 32 123/83 (96) 03/20/20 02:00 32 123/83 Mechanical Ventilator 100 03/20/20 02:00 123/83 03/20/20 02:00 123/83 03/20/20 02:00 32 Mechanical Ventilator 100 03/20/20 01:45 38 133/78 Mechanical Ventilator 100 03/20/20 01:45 38 Mechanical Ventilator 100 03/20/20 01:45 100 28 133/78 (96) 90 03/20/20 01:30 100 28 133/80 (97) 90 03/20/20 01:30 30 133/78 Mechanical Ventilator 100 03/20/20 01:30 30 Mechanical Ventilator 100 03/20/20 01:30 98 30 100 03/20/20 01:15 100 32 124/74 (91) 90 03/20/20 01:15 23 133/80 Mechanical Ventilator 100 03/20/20 01:15 23 Mechanical Ventilator 100 03/20/20 01:00 99 24 132/75 (94) 90 03/20/20 01:00 29 124/75 Mechanical Ventilator 100 03/20/20 01:00 124/74 03/20/20 01:00 124/74 03/20/20 01:00 29 Mechanical Ventilator 100 03/20/20 00:45 28 131/84 Mechanical Ventilator 100 03/20/20 00:45 100 24 131/84 (100) 89 03/20/20 00:30 100 20 133/95 (108) 89 03/20/20 00:30 29 131/84 Mechanical Ventilator 100 03/20/20 00:15 25 133/95 Mechanical Ventilator 100 03/20/20 00:00 96 03/20/20 00:00 99.6 98 14 114/65 (81) 96 03/20/20 00:00 14 114/65 Mechanical Ventilator 100 03/20/20 00:00 114/65 03/20/20 00:00 114/65 03/20/20 00:00 14 Mechanical Ventilator 100 03/20/20 00:00 100 03/20/20 00:00 Mechanical Ventilator 03/19/20 23:45 91 23 110/59 (76) 86 03/19/20 23:45 114/65 03/19/20 23:40 100 25 137/90 (106) 90 03/19/20 23:39 17 123/81 Mechanical Ventilator 100 03/19/20 23:30 100 20 123/81 (95) 93 03/19/20 23:30 110/59 03/19/20 23:30 99 31 100 03/19/20 23:15 123/81 03/19/20 23:15 103 24 131/70 (90) 91 03/19/20 23:00 96/55 03/19/20 23:00 35 131/70 Mechanical Ventilator 100 03/19/20 23:00 96/55 03/19/20 23:00 27 Mechanical Ventilator 100 03/19/20 23:00 100.5 83 28 95/55 (68) 85 03/19/20 22:45 82/47 03/19/20 22:45 80 21 82/47 (59) 91 03/19/20 22:30 99 34 120/73 (89) 88 03/19/20 22:28 27 Mechanical Ventilator 100 03/19/20 22:15 96 19 115/75 (88) 88 03/19/20 22:07 95 25 119/78 (92) 87 03/19/20 22:00 119/78 03/19/20 22:00 23 119/78 Mechanical Ventilator 100 03/19/20 22:00 119/78 03/19/20 22:00 23 Mechanical Ventilator 100 03/19/20 22:00 100.0 82 25 82/49 (60) 91 03/19/20 21:45 98 21 89/51 (64) 92 03/19/20 21:45 119/78 03/19/20 21:45 82/49 03/19/20 21:37 119/64 03/19/20 21:30 100 23 119/64 (82) 92 03/19/20 21:30 99 30 100 03/19/20 21:30 89/51 03/19/20 21:15 96 22 92/70 (77) 92 03/19/20 21:15 119/64 03/19/20 21:00 93 26 89/55 (66) 94 03/19/20 21:00 89/55 03/19/20 21:00 21 89/51 Mechanical Ventilator 100 03/19/20 21:00 89/55 03/19/20 21:00 26 Mechanical Ventilator 100 03/19/20 20:30 96 19 89/51 (64) 78 03/19/20 20:00 100 03/19/20 20:00 110/61 03/19/20 20:00 22 117/64 Mechanical Ventilator 100 03/19/20 20:00 110/61 03/19/20 20:00 26 Mechanical Ventilator 100 03/19/20 20:00 102 03/19/20 20:00 Mechanical Ventilator 03/19/20 20:00 102 26 110/69 (83) 90 03/19/20 19:30 102 20 112/72 (85) 90 03/19/20 19:30 97 31 100 03/19/20 19:00 103 19 108/68 (81) 89 03/19/20 19:00 103 19 108/68 (81) 89 03/19/20 19:00 108/68 03/19/20 19:00 19 108/68 Mechanical Ventilator 03/19/20 19:00 108/68 03/19/20 19:00 19 Mechanical Ventilator 03/19/20 18:45 103 26 109/75 (86) 89 03/19/20 18:30 104 24 106/71 (83) 90 03/19/20 18:30 104 24 106/71 (83) 90 03/19/20 18:15 104 20 105/68 (80) 89 03/19/20 18:00 105/65 03/19/20 18:00 19 105/65 Mechanical Ventilator 03/19/20 18:00 105/65 03/19/20 18:00 19 Mechanical Ventilator 03/19/20 18:00 100.0 105 19 105/65 (78) 89 03/19/20 17:30 106 18 115/64 (81) 89 Intake and Output 03/19/20 03/20/20 19:00 07:00 Intake Total 1608.4004 ml 1635.20983 ml Output Total 620 ml 370 ml Balance 988.4004 ml 1265.79509 ml IV Total 1128.4004 ml 1205.16565 ml Tube Feeding 360 ml 250 ml Other 120 ml 180 ml Output Urine Total 620 ml 370 ml # Bowel Movements 1 3 Laboratory Tests 03/19/20 18:30: Arterial Blood pH 7.340L, Arterial Blood Partial Pressure CO2 58.5*H, Arterial Blood Partial Pressure O2 62.5L, Arterial Blood HCO3 30.9H, Arterial Blood Oxygen Saturation 90.1L, Arterial Blood Base Excess 4.1H, Joaquin Test Positive 03/20/20 05:37: White Blood Count 11.7H, Red Blood Count 3.03L, Hemoglobin 10.1L, Hematocrit 30.7L, Mean Corpuscular Volume 101H, Mean Corpuscular Hemoglobin 33.4H, Mean Corpuscular Hemoglobin Concent 32.9, Red Cell Distribution Width 17.3H, Platelet Count 162, Mean Platelet Volume 5.8L, Neutrophils (%) (Auto) 77.5H, Lymphocytes (%) (Auto) 10.6L, Monocytes (%) (Auto) 11.0H, Eosinophils (%) (Auto ) 0.0, Basophils (%) (Auto) 0.8, D-Dimer 9.71H, Sodium Level 123L, Potassium Level 5.0, Chloride Level 90L, Carbon Dioxide Level 28, Anion Gap 5, Blood Urea Nitrogen 20H, Creatinine 0.8, Estimat Glomerular Filtration Rate > 60, Glucose Level 193H, Hemoglobin A1c 5.4, Uric Acid 4.5, Calcium Level 7.9L, Phosphorus Level 3.4, Magnesium Level 2.1, Total Bilirubin 2.1H, Direct Bilirubin 1.1H, Gamma Glutamyl Transpeptidase 106H, Aspartate Amino Transf (AST/SGOT) 96H, Alanine Aminotransferase (ALT/SGPT) 25, Alkaline Phosphatase 142H, Ammonia 116H , Lactate Dehydrogenase 625H, Troponin I 0.409H, C-Reactive Protein, Quantitative 8.8H, Pro-B-Type Natriuretic Peptide > 63253A, Total Protein 9.4H, Albumin 2.4L, Globulin 7.0, Albumin/Globulin Ratio 0.3L, Triglycerides Level 284H, Cholesterol Level 74, LDL Cholesterol 52, HDL Cholesterol 8L, Cholesterol/ HDL Ratio 9.3H, Thyroid Stimulating Hormone (TSH) 4.026H 03/20/20 08:24: Arterial Blood pH 7.296L, Arterial Blood Partial Pressure CO2 51.5H, Arterial Blood Partial Pressure O2 65.7L, Arterial Blood HCO3 24.5, Arterial Blood Oxygen Saturation 89.8*L, Arterial Blood Base Excess -2.3L, Joaquin Test N/a 03/20/20 15:43: Arterial Blood pH 7.287L, Arterial Blood Partial Pressure CO2 56.5*H, Arterial Blood Partial Pressure O2 76.9, Arterial Blood HCO3 26.4H, Arterial Blood Oxygen Saturation 93.2L, Arterial Blood Base Excess -0.6, Joaquin Test Positive Height (Feet): 5 Height (Inches): 1.00 Weight (Pounds): 238 Celso Moreno MD March 20, 2020 17:24
[2020-03-20] MEDS: Dyna-Hex 2% Top Sol 2oz TOPIC SCH (20:16)
[2020-03-20] MEDS: Miralax 17gm pkt ORAL SCH (21:37)
[2020-03-20] MEDS: Solu-MEDROL 125mg Inj IVP SCH (21:37)
--- NOTE | 2020-03-20 22:21 | Pulmonolgy Critical Care Note ---
Critical Care - Asmt/Plan Assessment/Plan: Pulmonary CCM Progress Note HPI Patient is a 59 year old woman with significant obesity, admitted with bilateral lower extremity cellulitis, had complained of increased swelling and redness to both of her feet and legs Had elevated BNP on admission, persistent edema since admission, worsening hypoxia, LE DVT (right) negative for DVT. Patient had previous hospitalizations for cellulitis, PMH Hypothyroidism, Obesity, Cirrhosis, Anemia, Anxiety, Cellulitis COVID 19 positive, Pneumonia VQ no significant perfusion abnormality Prev LE dupplex negative High D Dimer level, on Lovenox PPX Being diuresed, persistent infiltrates on CXR, on ACPC, no tolerating Proning Worsening PaO2/PaO2, PC settings adjusted, P 16 Hyponatremia, renal following Hypothyroidism Awaiting Remdasovir Received IL6 inhibitor, on steroids Intubated, PEEP 16 Allergies: No Known Allergies Past Medical History: Obesity, Cirrhosis, Anemia, Anxiety, Cellulitis, Hypothyroidism All Other Systems: negative except mentioned in HPI Physical Exam Vital Signs Noted General Appearance: Obese, Sedated,intubated Head: normocephalic, atraumatic Eyes: bilateral eye PERRL, bilateral eye EOMI ENT: EOM grossly intact, moist MM, no LN Respiratory: Bilateral crackles, bilateral rhonchi Cardiovascular: regular rate, rhythm, HS1, HS2 RRR Gastrointestinal: Obese, soft non tender, ND Musculoskeletal: Significant edema and erythema bilateral lower extremity, patient also has crusting on both feet, Neurologic: seadted, no focalsigns Impression: Bilateral Lower Extremity Cellulitis Elevated NPA, severe bilateral edema Covid Pneumonia, s/p IL6 inhibitor, sp Hydroxychloroquine, Ivermectin Worsening hypoxia, PaO2 >60 100%, elevated PCO2 Cirrhosis Splenomegaly Anemia Anxiety Plan IV Antibiotics per ID On trial of steroids Surgery following for wounds Hematology following for anemia, observing for Neutropenia/thrombocytopenia Diurese PRN Renal following for hyponatremia Endocrine following Monitor labs Bronchodilators PPX - SCD, Lovenox Echocardiogram AC PC Proning PRN 3% saline PRN per renal DC free water Supplement electrolytes Albuterol PRN R[employer] Medications SW Patients daughter Tri - discussed grave prognosis, suggested DNAR - will consider DW Phamacist - Remdesavir ordered, awaiting supply Labs Noted Chest X-Ray: Cardiomegaly, left lower lobe atelectasis versus effusion, worsening infiltrates/congestion Subjective ROS Limited/Unobtainable: No Constitutional: Reports: no symptoms Gastrointestinal/Abdominal: Reports: no symptoms Musculoskeletal: Reports: other - SOB Allergies: Coded Allergies: No Known Allergies (Unverified , 02/29/20) ICU time 50 minutes Critical Care - Objective Last 24 Hour Vital Signs Date Time Temp Pulse Resp B/P (MAP) Pulse Ox O2 Delivery O2 Flow Rate FiO2 03/20/20 21:30 62 55 106/65 (79) 99 03/20/20 21:02 68 26 100 03/20/20 21:00 63 50 100/63 (75) 99 03/20/20 20:30 68 48 95/60 (72) 98 03/20/20 20:00 98.6 72 48 91/61 (71) 86 03/20/20 19:30 73 42 90/57 (68) 91 03/20/20 19:20 69 26 100 03/20/20 19:15 74 50 91/56 (68) 93 03/20/20 19:00 91/56 03/20/20 19:00 26 Mechanical Ventilator 100 03/20/20 19:00 75 53 91/59 (70) 95 03/20/20 18:45 76 51 92/59 (70) 94 03/20/20 18:30 76 51 90/57 (68) 93 03/20/20 18:23 76 49 85/53 (64) 93 03/20/20 18:15 74 34 79/65 (70) 85 03/20/20 18:00 67 26 102/67 (79) 100 03/20/20 18:00 85/53 03/20/20 18:00 26 Mechanical Ventilator 100 03/20/20 17:45 65 26 104/64 (77) 100 03/20/20 17:30 63 26 101/66 (78) 100 03/20/20 17:15 63 26 100/63 (75) 100 03/20/20 17:00 100/63 03/20/20 17:00 26 Mechanical Ventilator 100 03/20/20 17:00 63 26 98/65 (76) 100 03/20/20 16:58 64 26 96 Mechanical Ventilator 100 03/20/20 16:45 64 26 97/62 (74) 99 03/20/20 16:30 64 26 97/61 (73) 97 03/20/20 16:19 26 Mechanical Ventilator 100 5/4/20 16:18 26 Mechanical Ventilator 100 03/20/20 16:15 66 26 93/57 (69) 91 03/20/20 16:05 26 Mechanical Ventilator 100 03/20/20 16:00 Mechanical Ventilator Mechanical Ventilator 03/20/20 16:00 93/57 03/20/20 16:00 26 Mechanical Ventilator 100 03/20/20 16:00 97.7 68 26 97/54 (68) 94 03/20/20 16:00 69 03/20/20 15:55 26 Mechanical Ventilator 100 03/20/20 15:50 26 Mechanical Ventilator 100 03/20/20 15:45 26 Mechanical Ventilator 100 03/20/20 15:45 71 26 96/53 (67) 80 03/20/20 15:40 26 Mechanical Ventilator 100 03/20/20 15:35 26 Mechanical Ventilator 100 03/20/20 15:30 26 Mechanical Ventilator 100 03/20/20 15:30 68 26 41/17 (25) 99 03/20/20 15:25 26 Mechanical Ventilator 100 03/20/20 15:20 26 Mechanical Ventilator 100 03/20/20 15:15 70 26 95/54 (68) 99 03/20/20 15:15 26 Mechanical Ventilator 100 03/20/20 15:10 26 Mechanical Ventilator 100 03/20/20 15:07 64 26 100 03/20/20 15:05 26 Mechanical Ventilator 100 03/20/20 15:00 74 26 91/59 (70) 98 03/20/20 15:00 95/53 03/20/20 15:00 26 Mechanical Ventilator 100 03/20/20 14:45 26 Mechanical Ventilator 100 03/20/20 14:45 76 26 94/55 (68) 100 03/20/20 14:30 76 25 92/56 (68) 100 03/20/20 14:30 25 Mechanical Ventilator 100 03/20/20 14:15 102 23 105/61 (76) 94 03/20/20 14:15 23 Mechanical Ventilator 100 03/20/20 14:00 110/73 03/20/20 14:00 22 Mechanical Ventilator 100 03/20/20 14:00 106 26 123/68 (86) 88 03/20/20 14:00 100 03/20/20 13:54 104 24 119/74 (89) 98 03/20/20 13:45 85 22 112/69 (83) 100 03/20/20 13:45 22 Mechanical Ventilator 100 03/20/20 13:30 23 Mechanical Ventilator 100 03/20/20 13:30 79 23 90/54 (66) 100 03/20/20 13:15 100 18 114/71 (85) 87 03/20/20 13:15 20 Mechanical Ventilator 100 03/20/20 13:00 100 03/20/20 13:00 114/71 03/20/20 13:00 20 Mechanical Ventilator 100 03/20/20 13:00 102 24 125/75 (92) 86 03/20/20 12:45 101 23 139/88 (105) 94 03/20/20 12:45 24 Mechanical Ventilator 100 03/20/20 12:30 99 24 124/75 (91) 83 03/20/20 12:30 23 Mechanical Ventilator 100 03/20/20 12:15 97 22 152/80 (104) 89 03/20/20 12:15 21 Mechanical Ventilator 100 03/20/20 12:00 98.8 93 26 137/100 (112) 93 03/20/20 12:00 82 03/20/20 12:00 100 03/20/20 12:00 152/80 03/20/20 12:00 152/80 03/20/20 12:00 23 Mechanical Ventilator 100 03/20/20 12:00 Mechanical Ventilator Mechanical Ventilator 03/20/20 11:45 89 19 144/93 (110) 94 03/20/20 11:45 24 Mechanical Ventilator 100 03/20/20 11:30 89 19 150/97 (114) 94 03/20/20 11:30 25 Mechanical Ventilator 100 03/20/20 11:15 86 26 156/102 (120) 96 03/20/20 11:15 23 Mechanical Ventilator 100 03/20/20 11:00 112/71 03/20/20 11:00 112/71 03/20/20 11:00 22 Mechanical Ventilator 100 03/20/20 11:00 72 25 153/93 (113) 93 03/20/20 10:45 74 26 162/94 (116) 93 03/20/20 10:34 59 25 100 03/20/20 10:30 57 25 90/63 (72) 95 03/20/20 10:30 90/63 03/20/20 10:15 56 26 123/72 (89) 97 03/20/20 10:00 27 118/69 Mechanical Ventilator 100 03/20/20 10:00 118/69 03/20/20 10:00 27 Mechanical Ventilator 100 03/20/20 10:00 58 28 118/69 (85) 97 03/20/20 09:45 60 26 109/66 (80) 96 03/20/20 09:30 65 25 122/72 (89) 94 03/20/20 09:15 69 25 151/85 (107) 93 03/20/20 09:00 26 151/85 Mechanical Ventilator 93.0 03/20/20 09:00 151/85 03/20/20 09:00 26 Mechanical Ventilator 100 03/20/20 09:00 77 25 157/91 (113) 91 03/20/20 08:45 78 26 166/97 (120) 91 03/20/20 08:30 78 29 163/92 (115) 91 03/20/20 08:15 81 40 158/95 (116) 93 03/20/20 08:00 97.7 81 47 161/92 (115) 95 03/20/20 08:00 69 03/20/20 08:00 40 158/95 Mechanical Ventilator 100 03/20/20 08:00 158/95 03/20/20 08:00 158/95 03/20/20 08:00 44 Mechanical Ventilator 100 03/20/20 08:00 100 03/20/20 08:00 Mechanical Ventilator Mechanical Ventilator 03/20/20 07:45 82 47 158/89 (112) 95 03/20/20 07:30 82 45 149/87 (107) 95 03/20/20 07:15 74 44 130/77 (94) 96 03/20/20 07:12 40 Mechanical Ventilator 100 03/20/20 07:08 82 25 100 03/20/20 07:00 67 41 88/52 (64) 96 03/20/20 07:00 40 88/52 Mechanical Ventilator 100 03/20/20 07:00 88/52 03/20/20 07:00 87/54 03/20/20 07:00 40 Mechanical Ventilator 100 03/20/20 06:57 87/54 03/20/20 06:45 68 48 87/54 (65) 95 03/20/20 06:45 87/54 03/20/20 06:30 103/63 03/20/20 06:30 71 50 103/63 (76) 95 03/20/20 06:21 47 141/87 Mechanical Ventilator 100 03/20/20 06:15 89 53 141/87 (105) 93 03/20/20 06:15 141/87 03/20/20 06:00 92 42 159/92 (114) 92 03/20/20 06:00 42 159/92 Mechanical Ventilator 100 03/20/20 06:00 159/92 03/20/20 06:00 159/92 03/20/20 06:00 42 Mechanical Ventilator 100 03/20/20 05:45 160/93 03/20/20 05:45 160/93 03/20/20 05:45 88 48 160/93 (115) 94 03/20/20 05:30 146/82 03/20/20 05:30 146/82 03/20/20 05:30 91 46 146/82 (103) 94 03/20/20 05:24 93 25 100 03/20/20 05:15 147/85 03/20/20 05:15 147/85 03/20/20 05:15 94 39 147/85 (105) 93 03/20/20 05:00 25 149/85 Mechanical Ventilator 100 03/20/20 05:00 149/85 03/20/20 05:00 149/85 03/20/20 05:00 25 Mechanical Ventilator 100 03/20/20 05:00 95 25 149/85 (106) 92 03/20/20 04:45 95 25 150/87 (108) 92 03/20/20 04:45 25 150/87 Mechanical Ventilator 03/20/20 04:39 100.9 03/20/20 04:30 26 147/86 Mechanical Ventilator 100 03/20/20 04:30 96 26 147/86 (106) 92 03/20/20 04:15 93 27 145/84 (104) 91 03/20/20 04:15 29 147/86 Mechanical Ventilator 100 03/20/20 04:00 101.8 91 25 125/75 (92) 94 03/20/20 04:00 26 145/84 Mechanical Ventilator 100 03/20/20 04:00 145/84 03/20/20 04:00 145/84 03/20/20 04:00 26 Mechanical Ventilator 100 03/20/20 04:00 80 03/20/20 04:00 Mechanical Ventilator 03/20/20 04:00 100 03/20/20 03:48 77 26 87/49 (62) 94 03/20/20 03:45 79 25 89/48 (62) 94 03/20/20 03:42 76 25 100 03/20/20 03:30 76 27 82/44 (57) 93 03/20/20 03:29 22 109/58 Mechanical Ventilator 100 03/20/20 03:15 95 19 109/58 (75) 94 03/20/20 03:15 96 31 100 03/20/20 03:00 97 42 135/73 (93) 92 03/20/20 02:45 38 135/73 Mechanical Ventilator 100 03/20/20 02:45 99 35 115/78 (90) 91 03/20/20 02:30 34 115/78 Mechanical Ventilator 100 03/20/20 02:30 99 30 126/63 (84) 91 03/20/20 02:15 32 126/63 Mechanical Ventilator 100 03/20/20 02:15 99 35 125/74 (91) 91 03/20/20 02:00 100 32 123/83 (96) 03/20/20 02:00 32 123/83 Mechanical Ventilator 100 03/20/20 02:00 123/83 03/20/20 02:00 123/83 03/20/20 02:00 32 Mechanical Ventilator 100 03/20/20 01:45 38 133/78 Mechanical Ventilator 100 03/20/20 01:45 38 Mechanical Ventilator 100 03/20/20 01:45 100 28 133/78 (96) 90 03/20/20 01:30 100 28 133/80 (97) 90 03/20/20 01:30 30 133/78 Mechanical Ventilator 100 03/20/20 01:30 30 Mechanical Ventilator 100 03/20/20 01:30 98 30 100 03/20/20 01:15 100 32 124/74 (91) 90 03/20/20 01:15 23 133/80 Mechanical Ventilator 100 03/20/20 01:15 23 Mechanical Ventilator 100 03/20/20 01:00 99 24 132/75 (94) 90 03/20/20 01:00 29 124/75 Mechanical Ventilator 100 03/20/20 01:00 124/74 03/20/20 01:00 124/74 03/20/20 01:00 29 Mechanical Ventilator 100 03/20/20 00:45 28 131/84 Mechanical Ventilator 100 03/20/20 00:45 100 24 131/84 (100) 89 03/20/20 00:30 100 20 133/95 (108) 89 03/20/20 00:30 29 131/84 Mechanical Ventilator 100 03/20/20 00:15 25 133/95 Mechanical Ventilator 100 03/20/20 00:00 96 03/20/20 00:00 99.6 98 14 114/65 (81) 96 03/20/20 00:00 14 114/65 Mechanical Ventilator 100 03/20/20 00:00 114/65 03/20/20 00:00 114/65 03/20/20 00:00 14 Mechanical Ventilator 100 03/20/20 00:00 100 03/20/20 00:00 Mechanical Ventilator 03/19/20 23:45 91 23 110/59 (76) 86 03/19/20 23:45 114/65 03/19/20 23:40 100 25 137/90 (106) 90 03/19/20 23:39 17 123/81 Mechanical Ventilator 100 03/19/20 23:30 100 20 123/81 (95) 93 03/19/20 23:30 110/59 03/19/20 23:30 99 31 100 03/19/20 23:15 123/81 03/19/20 23:15 103 24 131/70 (90) 91 03/19/20 23:00 96/55 03/19/20 23:00 35 131/70 Mechanical Ventilator 100 03/19/20 23:00 96/55 03/19/20 23:00 27 Mechanical Ventilator 100 03/19/20 23:00 100.5 83 28 95/55 (68) 85 03/19/20 22:45 82/47 03/19/20 22:45 80 21 82/47 (59) 91 03/19/20 22:30 99 34 120/73 (89) 88 03/19/20 22:28 27 Mechanical Ventilator 100 Accucheck: 198 Critical Care - Subjective ROS Limited/Unobtainable: No Condition: critical IV Access: PICC FI02: 100 Vent Support Breath Rate: 26 Vent Support Mode: AC Vent Tidal Volume: 450 Sputum Amount: Small PEEP: 16.0 PIP: 50 Tube Feeding Amount: 45 I&O: Intake and Output 03/19/20 03/20/20 19:00 07:00 Intake Total 1608.4004 ml 1635.60202 ml Output Total 620 ml 370 ml Balance 988.4004 ml 1265.63560 ml IV Total 1128.4004 ml 1205.85220 ml Tube Feeding 360 ml 250 ml Other 120 ml 180 ml Output Urine Total 620 ml 370 ml # Bowel Movements 1 3 ET-Tube: 7.5 ET Position: 21 Doron Carrillo MD March 20, 2020 22:21
--- NOTE | 2020-03-20 23:58 | Cardiology Progress Note ---
Assessment/Plan Assessment/Plan 1. Acute respiratory failure with hypoxic hypercapnea due to bilateral PNA caused by COVID-19 infection. 2. Septic shock on dopamine gtt only, off vasopressin and levophed drips, keep MAP at 65 mmHg and above. Normal LV function with LVEF at 60%. 3. Hyponatremia, serum Na almost normal limits, continue lasix. 4. Bilateral lower extremity cellulitis with Pseudomonas aeruginosa in culture. 5. Pancytopenia, most likely due to hepatitis C virus infection/liver cirrhosis. Subjective Subjective Sinus rhythm at rate of 63. Off levophed gtt, dopamine gtt on taper. Objective Last 24 Hour Vital Signs Date Time Temp Pulse Resp B/P (MAP) Pulse Ox O2 Delivery O2 Flow Rate FiO2 03/20/20 23:00 63 26 125/70 (88) 97 03/20/20 22:44 71 27 100 03/20/20 22:30 59 28 120/72 (88) 99 03/20/20 22:17 28 Mechanical Ventilator 100 03/20/20 22:00 59 26 110/68 (82) 99 03/20/20 21:30 62 55 106/65 (79) 99 03/20/20 21:02 68 26 100 03/20/20 21:00 63 50 100/63 (75) 99 03/20/20 20:30 68 48 95/60 (72) 98 03/20/20 20:00 Mechanical Ventilator Mechanical Ventilator 03/20/20 20:00 100 03/20/20 20:00 98.6 72 48 91/61 (71) 86 03/20/20 19:30 73 42 90/57 (68) 91 03/20/20 19:20 69 26 100 03/20/20 19:15 74 50 91/56 (68) 93 03/20/20 19:00 91/56 03/20/20 19:00 26 Mechanical Ventilator 100 03/20/20 19:00 75 53 91/59 (70) 95 03/20/20 18:45 76 51 92/59 (70) 94 03/20/20 18:30 76 51 90/57 (68) 93 03/20/20 18:23 76 49 85/53 (64) 93 03/20/20 18:15 74 34 79/65 (70) 85 03/20/20 18:00 67 26 102/67 (79) 100 03/20/20 18:00 85/53 03/20/20 18:00 26 Mechanical Ventilator 100 03/20/20 17:45 65 26 104/64 (77) 100 03/20/20 17:30 63 26 101/66 (78) 100 03/20/20 17:15 63 26 100/63 (75) 100 03/20/20 17:00 100/63 03/20/20 17:00 26 Mechanical Ventilator 100 03/20/20 17:00 63 26 98/65 (76) 100 03/20/20 16:58 64 26 96 Mechanical Ventilator 100 03/20/20 16:45 64 26 97/62 (74) 99 03/20/20 16:30 64 26 97/61 (73) 97 03/20/20 16:19 26 Mechanical Ventilator 100 03/20/20 16:18 26 Mechanical Ventilator 100 03/20/20 16:15 66 26 93/57 (69) 91 03/20/20 16:05 26 Mechanical Ventilator 100 03/20/20 16:00 Mechanical Ventilator Mechanical Ventilator 03/20/20 16:00 93/57 03/20/20 16:00 26 Mechanical Ventilator 100 03/20/20 16:00 97.7 68 26 97/54 (68) 94 03/20/20 16:00 69 03/20/20 15:55 26 Mechanical Ventilator 100 03/20/20 15:50 26 Mechanical Ventilator 100 03/20/20 15:45 26 Mechanical Ventilator 100 03/20/20 15:45 71 26 96/53 (67) 80 03/20/20 15:40 26 Mechanical Ventilator 100 03/20/20 15:35 26 Mechanical Ventilator 100 03/20/20 15:30 26 Mechanical Ventilator 100 03/20/20 15:30 68 26 41/17 (25) 99 03/20/20 15:25 26 Mechanical Ventilator 100 03/20/20 15:20 26 Mechanical Ventilator 100 03/20/20 15:15 70 26 95/54 (68) 99 03/20/20 15:15 26 Mechanical Ventilator 100 03/20/20 15:10 26 Mechanical Ventilator 100 03/20/20 15:07 64 26 100 03/20/20 15:05 26 Mechanical Ventilator 100 03/20/20 15:00 74 26 91/59 (70) 98 03/20/20 15:00 95/53 03/20/20 15:00 26 Mechanical Ventilator 100 03/20/20 14:45 26 Mechanical Ventilator 100 03/20/20 14:45 76 26 94/55 (68) 100 03/20/20 14:30 76 25 92/56 (68) 100 03/20/20 14:30 25 Mechanical Ventilator 100 03/20/20 14:15 102 23 105/61 (76) 94 03/20/20 14:15 23 Mechanical Ventilator 100 03/20/20 14:00 110/73 03/20/20 14:00 22 Mechanical Ventilator 100 03/20/20 14:00 106 26 123/68 (86) 88 03/20/20 14:00 100 03/20/20 13:54 104 24 119/74 (89) 98 03/20/20 13:45 85 22 112/69 (83) 100 03/20/20 13:45 22 Mechanical Ventilator 100 03/20/20 13:30 23 Mechanical Ventilator 100 03/20/20 13:30 79 23 90/54 (66) 100 03/20/20 13:15 100 18 114/71 (85) 87 03/20/20 13:15 20 Mechanical Ventilator 100 03/20/20 13:00 100 03/20/20 13:00 114/71 03/20/20 13:00 20 Mechanical Ventilator 100 03/20/20 13:00 102 24 125/75 (92) 86 03/20/20 12:45 101 23 139/88 (105) 94 03/20/20 12:45 24 Mechanical Ventilator 100 03/20/20 12:30 99 24 124/75 (91) 83 03/20/20 12:30 23 Mechanical Ventilator 100 03/20/20 12:15 97 22 152/80 (104) 89 03/20/20 12:15 21 Mechanical Ventilator 100 03/20/20 12:00 98.8 93 26 137/100 (112) 93 03/20/20 12:00 82 03/20/20 12:00 100 03/20/20 12:00 152/80 03/20/20 12:00 152/80 03/20/20 12:00 23 Mechanical Ventilator 100 03/20/20 12:00 Mechanical Ventilator Mechanical Ventilator 03/20/20 11:45 89 19 144/93 (110) 94 03/20/20 11:45 24 Mechanical Ventilator 100 03/20/20 11:30 89 19 150/97 (114) 94 03/20/20 11:30 25 Mechanical Ventilator 100 03/20/20 11:15 86 26 156/102 (120) 96 03/20/20 11:15 23 Mechanical Ventilator 100 03/20/20 11:00 112/71 03/20/20 11:00 112/71 03/20/20 11:00 22 Mechanical Ventilator 100 03/20/20 11:00 72 25 153/93 (113) 93 03/20/20 10:45 74 26 162/94 (116) 93 03/20/20 10:34 59 25 100 03/20/20 10:30 57 25 90/63 (72) 95 03/20/20 10:30 90/63 03/20/20 10:15 56 26 123/72 (89) 97 03/20/20 10:00 27 118/69 Mechanical Ventilator 100 03/20/20 10:00 118/69 03/20/20 10:00 27 Mechanical Ventilator 100 03/20/20 10:00 58 28 118/69 (85) 97 03/20/20 09:45 60 26 109/66 (80) 96 03/20/20 09:30 65 25 122/72 (89) 94 03/20/20 09:15 69 25 151/85 (107) 93 03/20/20 09:00 26 151/85 Mechanical Ventilator 93.0 03/20/20 09:00 151/85 03/20/20 09:00 26 Mechanical Ventilator 100 03/20/20 09:00 77 25 157/91 (113) 91 03/20/20 08:45 78 26 166/97 (120) 91 03/20/20 08:30 78 29 163/92 (115) 91 03/20/20 08:15 81 40 158/95 (116) 93 03/20/20 08:00 97.7 81 47 161/92 (115) 95 03/20/20 08:00 69 03/20/20 08:00 40 158/95 Mechanical Ventilator 100 03/20/20 08:00 158/95 03/20/20 08:00 158/95 03/20/20 08:00 44 Mechanical Ventilator 100 03/20/20 08:00 100 03/20/20 08:00 Mechanical Ventilator Mechanical Ventilator 03/20/20 07:45 82 47 158/89 (112) 95 03/20/20 07:30 82 45 149/87 (107) 95 03/20/20 07:15 74 44 130/77 (94) 96 03/20/20 07:12 40 Mechanical Ventilator 100 03/20/20 07:08 82 25 100 03/20/20 07:00 67 41 88/52 (64) 96 03/20/20 07:00 40 88/52 Mechanical Ventilator 100 03/20/20 07:00 88/52 03/20/20 07:00 87/54 03/20/20 07:00 40 Mechanical Ventilator 100 03/20/20 06:57 87/54 03/20/20 06:45 68 48 87/54 (65) 95 03/20/20 06:45 87/54 03/20/20 06:30 103/63 03/20/20 06:30 71 50 103/63 (76) 95 03/20/20 06:21 47 141/87 Mechanical Ventilator 100 03/20/20 06:15 89 53 141/87 (105) 93 03/20/20 06:15 141/87 03/20/20 06:00 92 42 159/92 (114) 92 03/20/20 06:00 42 159/92 Mechanical Ventilator 03/20/20 06:00 159/92 03/20/20 06:00 159/92 03/20/20 06:00 42 Mechanical Ventilator 03/20/20 05:45 160/93 03/20/20 05:45 160/93 03/20/20 05:45 88 48 160/93 (115) 94 03/20/20 05:30 146/82 03/20/20 05:30 146/82 03/20/20 05:30 91 46 146/82 (103) 94 03/20/20 05:24 93 25 100 03/20/20 05:15 147/85 03/20/20 05:15 147/85 03/20/20 05:15 94 39 147/85 (105) 93 03/20/20 05:00 25 149/85 Mechanical Ventilator 100 03/20/20 05:00 149/85 03/20/20 05:00 149/85 03/20/20 05:00 25 Mechanical Ventilator 100 03/20/20 05:00 95 25 149/85 (106) 92 03/20/20 04:45 95 25 150/87 (108) 92 03/20/20 04:45 25 150/87 Mechanical Ventilator 100 03/20/20 04:39 100.9 03/20/20 04:30 26 147/86 Mechanical Ventilator 100 03/20/20 04:30 96 26 147/86 (106) 92 03/20/20 04:15 93 27 145/84 (104) 91 03/20/20 04:15 29 147/86 Mechanical Ventilator 100 03/20/20 04:00 101.8 91 25 125/75 (92) 94 03/20/20 04:00 26 145/84 Mechanical Ventilator 100 03/20/20 04:00 145/84 03/20/20 04:00 145/84 03/20/20 04:00 26 Mechanical Ventilator 100 03/20/20 04:00 80 03/20/20 04:00 Mechanical Ventilator 03/20/20 04:00 100 03/20/20 03:48 77 26 87/49 (62) 94 03/20/20 03:45 79 25 89/48 (62) 94 03/20/20 03:42 76 25 100 03/20/20 03:30 76 27 82/44 (57) 93 03/20/20 03:29 22 109/58 Mechanical Ventilator 100 03/20/20 03:15 95 19 109/58 (75) 94 03/20/20 03:15 96 31 100 03/20/20 03:00 97 42 135/73 (93) 92 03/20/20 02:45 38 135/73 Mechanical Ventilator 100 03/20/20 02:45 99 35 115/78 (90) 91 03/20/20 02:30 34 115/78 Mechanical Ventilator 100 03/20/20 02:30 99 30 126/63 (84) 91 03/20/20 02:15 32 126/63 Mechanical Ventilator 100 03/20/20 02:15 99 35 125/74 (91) 91 03/20/20 02:00 100 32 123/83 (96) 90 03/20/20 02:00 32 123/83 Mechanical Ventilator 100 03/20/20 02:00 123/83 03/20/20 02:00 123/83 03/20/20 02:00 32 Mechanical Ventilator 100 03/20/20 01:45 38 133/78 Mechanical Ventilator 100 03/20/20 01:45 38 Mechanical Ventilator 100 03/20/20 01:45 100 28 133/78 (96) 90 03/20/20 01:30 100 28 133/80 (97) 90 03/20/20 01:30 30 133/78 Mechanical Ventilator 100 03/20/20 01:30 30 Mechanical Ventilator 100 03/20/20 01:30 98 30 100 03/20/20 01:15 100 32 124/74 (91) 90 03/20/20 01:15 23 133/80 Mechanical Ventilator 100 03/20/20 01:15 23 Mechanical Ventilator 100 03/20/20 01:00 99 24 132/75 (94) 90 03/20/20 01:00 29 124/75 Mechanical Ventilator 100 03/20/20 01:00 124/74 03/20/20 01:00 124/74 03/20/20 01:00 29 Mechanical Ventilator 100 03/20/20 00:45 28 131/84 Mechanical Ventilator 100 03/20/20 00:45 100 24 131/84 (100) 89 03/20/20 00:30 100 20 133/95 (108) 89 03/20/20 00:30 29 131/84 Mechanical Ventilator 100 03/20/20 00:15 25 133/95 Mechanical Ventilator 100 03/20/20 00:00 96 03/20/20 00:00 99.6 98 14 114/65 (81) 96 03/20/20 00:00 14 114/65 Mechanical Ventilator 100 03/20/20 00:00 114/65 03/20/20 00:00 114/65 03/20/20 00:00 14 Mechanical Ventilator 100 03/20/20 00:00 100 03/20/20 00:00 Mechanical Ventilator Intake and Output 03/19/20 03/20/20 19:00 07:00 Intake Total 1608.4004 ml 1635.66117 ml Output Total 620 ml 370 ml Balance 988.4004 ml 1265.09947 ml IV Total 1128.4004 ml 1205.74805 ml Tube Feeding 360 ml 250 ml Other 120 ml 180 ml Output Urine Total 620 ml 370 ml # Bowel Movements 1 3 2D Echo: LVEF 60%, Mild LVH, Mild LAE, RVSP 44 mmHg, Mild MR, Normal LV Diast. Fxn Laboratory Tests Test 03/20/20 05:37 03/20/20 08:24 03/20/20 15:43 White Blood Count 11.7 K/UL (4.8-10.8) H Red Blood Count 3.03 M/UL (4.20-5.40) L Hemoglobin 10.1 G/DL (12.0-16.0) L Hematocrit 30.7 % (37.0-47.0) L Mean Corpuscular Volume 101 FL (80-99) H Mean Corpuscular Hemoglobin 33.4 PG (27.0-31.0) H Mean Corpuscular Hemoglobin Concent 32.9 G/DL (32.0-36.0) Red Cell Distribution Width 17.3 % (11.6-14.8) H Platelet Count 162 K/UL (150-450) Mean Platelet Volume 5.8 FL (6.5-10.1) L Neutrophils (%) (Auto) 77.5 % (45.0-75.0) H Lymphocytes (%) (Auto) 10.6 % (20.0-45.0) L Monocytes (%) (Auto) 11.0 % (1.0-10.0) H Eosinophils (%) (Auto) 0.0 % (0.0-3.0) Basophils (%) (Auto) 0.8 % (0.0-2.0) D-Dimer 9.71 mg/L FEU (0.00-0.49) H Sodium Level 123 MMOL/L (136-145) L Potassium Level 5.0 MMOL/L (3.5-5.1) Chloride Level 90 MMOL/L (98-107) L Carbon Dioxide Level 28 MMOL/L (21-32) Anion Gap 5 mmol/L (5-15) Blood Urea Nitrogen 20 mg/dL (7-18) H Creatinine 0.8 MG/DL (0.55-1.30) Estimat Glomerular Filtration Rate > 60 mL/min (>60) Glucose Level 193 MG/DL (74-106) H Hemoglobin A1c 5.4 % (4.3-6.0) Uric Acid 4.5 MG/DL (2.6-7.2) Calcium Level 7.9 MG/DL (8.5-10.1) L Phosphorus Level 3.4 MG/DL (2.5-4.9) Magnesium Level 2.1 MG/DL (1.8-2.4) Total Bilirubin 2.1 MG/DL (0.2-1.0) H Direct Bilirubin 1.1 MG/DL (0.0-0.3) H Gamma Glutamyl Transpeptidase 106 U/L (5-85) H Aspartate Amino Transf (AST/SGOT) 96 U/L (15-37) H Alanine Aminotransferase (ALT/SGPT) 25 U/L (12-78) Alkaline Phosphatase 142 U/L (46-116) H Ammonia 116 umol/L (11-32) H Lactate Dehydrogenase 625 U/L (81-234) H Troponin I 0.409 ng/mL (0.000-0.056) C-Reactive Protein, Quantitative 8.8 mg/dL (0.00-0.90) H Pro-B-Type Natriuretic Peptide > 16249 pg/mL (0-125) H Total Protein 9.4 G/DL (6.4-8.2) H Albumin 2.4 G/DL (3.4-5.0) L Globulin 7.0 g/dL Albumin/Globulin Ratio 0.3 (1.0-2.7) L Triglycerides Level 284 MG/DL (30-150) H Cholesterol Level 74 MG/DL (< 200) LDL Cholesterol 52 mg/dL (<100) HDL Cholesterol 8 MG/DL (40-60) L Cholesterol/HDL Ratio 9.3 (3.3-4.4) H Thyroid Stimulating Hormone (TSH) 4.026 uiU/mL (0.358-3.740) Arterial Blood pH 7.296 (7.350-7.450) 7.287 (7.350-7.450) Arterial Blood Partial Pressure CO2 51.5 mmHg (35.0-45.0) H 56.5 mmHg (35.0-45.0) *H Arterial Blood Partial Pressure O2 65.7 mmHg (75.0-100.0) L 76.9 mmHg (75.0-100.0) Arterial Blood HCO3 24.5 mmol/L (22.0-26.0) 26.4 mmol/L (22.0-26.0) H Arterial Blood Oxygen Saturation 89.8 % (95-100) *L 93.2 % (95-100) L Arterial Blood Base Excess -2.3 (-2-2) L -0.6 (-2-2) Joaquin Test N/a Positive Objective HEENT: Atraumatic and normocephalic. Anicteric. Intubated. NECK: JVP cannot be assessed. No carotid bruit. + ETT. CARDIOVASCULAR: Normal S1, S2. Regular rate and rhythm. No murmurs, gallops, or rubs. PMI is at fourth intercostal space at left midclavicular line. LUNGS: Bibasilar crackles. ABDOMEN: Soft, nontender, and nondistended. No hepatosplenomegaly. Positive bowel sounds. EXTREMITIES: A 2+ edema bilaterally associated with erythema with blistering and crust formation of both feet. Berto Gonzalez MD March 20, 2020 23:58
[2020-03-21] VITALS (48 sets, daily range): BP systolic 102–168; BP diastolic 61–90
[2020-03-21] MEDS: NovoLOG Insulin Flexpen SUBQ SCH ×4 (00:02→18:44)
[2020-03-21] MEDS: Metoclopramide 10mg/2ml Inj IVP SCH ×3 (04:00→17:43)
[2020-03-21] MEDS: fentaNYL Citrate 2,500 MCG in NS 200 ML IV SCH ×3 (05:02→18:44)
[2020-03-21] MEDS: Norepinephrine Bitartrate 16 MG in D5W 500ml 484 ML IV SCH ×2 (05:03→21:00)
[2020-03-21 06:49] LABS: BASOPHILS % (AUTO) 0.9 % (0.0-2.0); HEMATOCRIT 27.9 % (37.0-47.0); HEMOGLOBIN 9.2 G/DL (12.0-16.0); LYMPHOCYTES % (AUTO) 5.6 % (20.0-45.0); MEAN CORPUSCULAR VOLUME 101 FL (80-99); MONOCYTES % (AUTO) 14.4 % (1.0-10.0); NEUTROPHILS % (AUTO) 79.2 % (45.0-75.0); PLATELET COUNT 161 K/UL (150-450); RED BLOOD COUNT 2.76 M/UL (4.20-5.40); RED CELL DISTRIBUTION WIDTH 17.3 % (11.6-14.8); WHITE BLOOD COUNT 11.2 K/UL (4.8-10.8)
--- NOTE | 2020-03-21 07:17 | Hematology/Onc Progress Note ---
Assessment/Plan Assessment/Plan Assessment and Recs # Pancytopenia -- multiple etiologies could be related to underlying liver disease, medication-induced, infection versus viral syndrome versus underlying bone marrow cause, in this case, has severe liver disease and cirrhosis, HEP C++ , also cellulitis --> peripheral smear has been ordered and does not show significant abnormalities and none noted --> Medications have been reviewed --> Continue to monitor for improvement, trend cbc --> Hep panel and HIV are both negative --> US abd ordered to r/o cirrhosis and hepatosplenomegaly ->CIRRHOSIS IS NOTED , LARGE SPLEEN --> reverse isolation if ANC is <2000 --> Give neupogen if ANC <1000 --> Transfuse if hgb <7, with 1 unit prbc --> anemia panel ordered as well-->CW acd --> hgb trend 7-->7.1-->8.4-->8.2 -->8.7-->9.9-->9.2 --> plt 145k-->152-->162k-->149k-->121k->171k --> wbc 3.4-->3.5->3.9->4.4-->11 --> abx: sameer/rifaximin # Cellulitis of the lower extremities --> continue abx as needed as per id --> Started on IV antibiotics-->azithro/cefepime-->levaquin --> as per surg recs, wound care # Ftt --> remains on mirtazapine # Elevated LFTS --> as per gi --> due to cirrhosis # Respiratory failure --> s/p intubation 03/16 --> prone positioning as needed by pulm # Dvt ppx lovenox sq The timing of this note does not necessarily reflect the time of the patient was seen. Greatly appreciate consultation. Subjective Constitutional: Denies: no symptoms, chills, fever, malaise, weakness, other HEENT: Denies: no symptoms, eye pain, blurred vision, tearing, double vision, ear pain, ear discharge, nose pain, nose congestion, throat pain, throat swelling, mouth pain, mouth swelling, other Cardiovascular: Denies: no symptoms, chest pain, edema, irregular heart rate, lightheadedness, palpitations, syncope, other Gastrointestinal/Abdominal: Denies: no symptoms, abdomen distended, abdominal pain, black stools, tarry stools, blood in stool, constipated, diarrhea, difficulty swallowing, nausea, poor appetite, poor fluid intake, rectal bleeding , vomiting, other Neurologic/Psychiatric: Denies: no symptoms, anxiety, depressed, emotional problems, headache, numbness, paresthesia, pre-existing deficit, seizure, tingling, tremors, weakness, other Allergies: Coded Allergies: No Known Allergies (Unverified , 02/29/20) Subjective 03/02 no events, no bleeding, hgb 7.1, no hemolysis 03/03 s/p blood, hgb improved to 8.4, stool ob negtive, on abx 03/05 asleep, no acute distress, hgb 8.2 03/06 remains comfortable, on abx, plt remains low 03/07 is on nonrebreather, no night sweats, labs are noted 03/08 labs reviewed, being diuresed, seen by cards, psych, labs noted 03/09 lasix adjusted, wbc remains low at 3.9, reviewed meds, smear 03/10 no night sweats, no bleeding, labs noted, smear noted 03/12 labs noted, none completed, have reordered, cellulitis better 03/13 is continuing with chest pain, cards aware, no further studies until covid neg 03/14 labs noted, no bleeding, diuresis as needed, hgb stable 03/15 alseep is cooperative, no bleeding, meds noted 03/16 no bleeding or chills, hgb 10.8, no night sweats, no major events 03/17 now intubated, no bleeding, labs noted, dw rn 03/19 remains intubated, no bleeding, labs noted, on pressors 03/20 prone posiition, seen by gi and renal, nob leeding, hgb 10.1 03/21 sedated, remains agitated, pulling on 2p restraints, no bleeding Objective Objective Current Medications Medications (Trade) Dose Ordered Sig/Dolores Route PRN Reason Start Time Stop Time Status Last Admin Dose Admin Acetaminophen (Tylenol) 650 mg Q4H PRN ORAL Temp >100 03/13/20 14:53 04/12/20 14:52 03/19/20 06:25 Acetaminophen (Tylenol) 650 mg Q4H PRN ORAL Mild Pain (Pain Scale 1-3) 03/13/20 14:53 04/12/20 14:52 03/20/20 04:09 Chlorhexidine Gluconate (Lucretia-Hex 2%) 1 applic DAILY@2000 TOPIC 03/13/20 20:00 06/11/20 19:59 03/20/20 20:16 Dextrose (Dextrose 50%) 25 ml Q30M PRN IV Hypoglycemia 03/16/20 09:30 06/14/20 09:29 Dextrose (Dextrose 50%) 50 ml Q30M PRN IV Hypoglycemia 03/16/20 09:30 06/14/20 09:29 Dopamine HCl/ Dextrose 250 ml @ 0 mls/hr Q24H IV 03/16/20 19:30 06/14/20 19:29 03/20/20 11:00 Enoxaparin Sodium (Lovenox) 40 mg DAILY SUBQ 03/19/20 09:00 04/03/20 08:59 03/20/20 09:32 Fentanyl Citrate 2500 mcg/Sodium Chloride 250 ml @ 0 mls/hr Q24H IV 03/15/20 18:30 03/22/20 18:29 03/21/20 05:02 Insulin Aspart (NovoLOG) Q6HR SUBQ 03/16/20 12:00 06/14/20 11:59 03/21/20 05:36 Lactulose (Cephulac) 30 gm THREE TIMES A DAY NG 03/20/20 13:00 04/19/20 12:59 03/20/20 18:03 Levofloxacin (Levaquin) 750 mg DAILY NG 03/20/20 12:00 03/27/20 11:59 03/20/20 11:47 Levothyroxine Sodium (Synthroid) 50 mcg DAILY IV 03/21/20 09:00 04/17/20 11:59 Methylprednisolone Sodium Succinate (Solu-MEDROL) 50 mg EVERY 12 HOURS IVP 03/20/20 21:00 06/17/20 20:59 03/20/20 21:37 Metoclopramide HCl (Reglan) 10 mg Q6H IVP 03/17/20 10:15 04/16/20 10:14 03/21/20 04:00 Midodrine (Pro-Amatine) 10 mg THREE TIMES A DAY NG 03/20/20 13:00 06/18/20 12:59 03/20/20 18:03 Mirtazapine (Remeron) 7.5 mg BEDTIME PRN ORAL SLEEP 03/13/20 14:55 06/11/20 14:54 Non-Formulary Medication (Non-Formulary Med) 1 ea DAILY IV 03/18/20 09:00 04/17/20 08:59 UNV Norepinephrine Bitartrate 16 mg/ Dextrose 500 ml @ 0 mls/hr Q24H IV 03/17/20 21:00 04/16/20 13:02 03/21/20 05:03 Polyethylene Glycol (Miralax) 17 gm BEDTIME ORAL 03/19/20 21:00 04/18/20 20:59 03/20/20 21:37 Propofol 100 ml @ 0 mls/hr Q24H IV 03/19/20 23:30 03/21/20 23:29 03/20/20 06:21 Rifaximin (Xifaxan) 550 mg EVERY 12 HOURS ORAL 03/18/20 09:00 03/25/20 08:59 03/20/20 21:37 Vasopressin 100 units/Sodium Chloride 100 ml @ 0 mls/hr Q24H PRN IV For hypotension 03/16/20 11:00 04/15/20 10:59 03/19/20 18:03 Last 24 Hour Vital Signs Date Time Temp Pulse Resp B/P (MAP) Pulse Ox O2 Delivery O2 Flow Rate FiO2 03/21/20 06:00 59 26 127/73 (91) 99 03/21/20 06:00 127/73 03/21/20 06:00 26 Mechanical Ventilator 100 03/21/20 05:30 57 26 126/77 (93) 99 03/21/20 05:03 126/76 03/21/20 05:02 28 Mechanical Ventilator 100 03/21/20 05:00 126/76 03/21/20 05:00 28 Mechanical Ventilator 100 03/21/20 05:00 58 26 126/76 (93) 97 03/21/20 04:30 97.6 60 26 118/71 (87) 99 03/21/20 04:00 100 03/21/20 04:00 Mechanical Ventilator Mechanical Ventilator 03/21/20 04:00 109/69 03/21/20 04:00 26 Mechanical Ventilator 100 03/21/20 04:00 66 26 109/69 (82) 95 03/21/20 04:00 62 03/21/20 03:30 63 31 105/64 (78) 99 03/21/20 03:00 64 28 102/61 (75) 98 03/21/20 03:00 102/61 03/21/20 03:00 28 Mechanical Ventilator 100 03/21/20 02:36 81 28 100 03/21/20 02:30 72 28 104/64 (77) 97 03/21/20 02:00 68 27 106/63 (77) 99 03/21/20 02:00 106/63 03/21/20 02:00 27 Mechanical Ventilator 100 03/21/20 01:30 65 27 112/65 (81) 99 03/21/20 01:00 63 32 118/69 (85) 99 03/21/20 01:00 118/69 03/21/20 01:00 32 Mechanical Ventilator 100 03/21/20 00:44 78 26 100 03/21/20 00:30 61 32 120/70 (87) 99 03/21/20 00:00 Mechanical Ventilator Mechanical Ventilator 03/21/20 00:00 63 03/21/20 00:00 125/73 03/21/20 00:00 26 Mechanical Ventilator 100 03/21/20 00:00 97.9 64 26 125/73 (90) 98 03/20/20 23:30 63 28 123/73 (90) 98 03/20/20 23:00 63 26 125/70 (88) 97 03/20/20 23:00 125/70 03/20/20 23:00 26 Mechanical Ventilator 100 03/20/20 22:44 71 27 100 03/20/20 22:30 59 28 120/72 (88) 99 03/20/20 22:17 28 Mechanical Ventilator 100 03/20/20 22:00 110/68 03/20/20 22:00 26 Mechanical Ventilator 100 03/20/20 22:00 59 26 110/68 (82) 99 03/20/20 21:30 62 55 106/65 (79) 99 03/20/20 21:02 68 26 100 03/20/20 21:00 63 50 100/63 (75) 99 03/20/20 21:00 100/63 03/20/20 21:00 26 Mechanical Ventilator 100 03/20/20 20:30 68 48 95/60 (72) 98 03/20/20 20:00 72 03/20/20 20:00 91/61 03/20/20 20:00 28 Mechanical Ventilator 100 03/20/20 20:00 Mechanical Ventilator Mechanical Ventilator 03/20/20 20:00 100 03/20/20 20:00 98.6 72 48 91/61 (71) 86 03/20/20 19:30 73 42 90/57 (68) 91 03/20/20 19:20 69 26 100 03/20/20 19:15 74 50 91/56 (68) 93 03/20/20 19:00 91/56 03/20/20 19:00 26 Mechanical Ventilator 100 03/20/20 19:00 75 53 91/59 (70) 95 03/20/20 18:45 76 51 92/59 (70) 94 03/20/20 18:30 76 51 90/57 (68) 93 03/20/20 18:23 76 49 85/53 (64) 93 03/20/20 18:15 74 34 79/65 (70) 85 03/20/20 18:00 67 26 102/67 (79) 100 03/20/20 18:00 85/53 03/20/20 18:00 26 Mechanical Ventilator 100 03/20/20 17:45 65 26 104/64 (77) 100 03/20/20 17:30 63 26 101/66 (78) 100 03/20/20 17:15 63 26 100/63 (75) 100 03/20/20 17:00 100/63 03/20/20 17:00 26 Mechanical Ventilator 100 03/20/20 17:00 63 26 98/65 (76) 100 03/20/20 16:58 64 26 96 Mechanical Ventilator 100 03/20/20 16:45 64 26 97/62 (74) 99 03/20/20 16:30 64 26 97/61 (73) 97 03/20/20 16:19 26 Mechanical Ventilator 100 03/20/20 16:18 26 Mechanical Ventilator 100 03/20/20 16:15 66 26 93/57 (69) 91 03/20/20 16:05 26 Mechanical Ventilator 100 03/20/20 16:00 Mechanical Ventilator Mechanical Ventilator 03/20/20 16:00 93/57 03/20/20 16:00 26 Mechanical Ventilator 100 03/20/20 16:00 97.7 68 26 97/54 (68) 94 03/20/20 16:00 69 03/20/20 15:55 26 Mechanical Ventilator 100 03/20/20 15:50 26 Mechanical Ventilator 100 03/20/20 15:45 26 Mechanical Ventilator 100 03/20/20 15:45 71 26 96/53 (67) 80 03/20/20 15:40 26 Mechanical Ventilator 100 03/20/20 15:35 26 Mechanical Ventilator 100 03/20/20 15:30 26 Mechanical Ventilator 100 03/20/20 15:30 68 26 41/17 (25) 99 03/20/20 15:25 26 Mechanical Ventilator 100 03/20/20 15:20 26 Mechanical Ventilator 100 03/20/20 15:15 70 26 95/54 (68) 99 03/20/20 15:15 26 Mechanical Ventilator 100 03/20/20 15:10 26 Mechanical Ventilator 100 03/20/20 15:07 64 26 100 03/20/20 15:05 26 Mechanical Ventilator 100 03/20/20 15:00 74 26 91/59 (70) 98 03/20/20 15:00 95/53 03/20/20 15:00 26 Mechanical Ventilator 100 03/20/20 14:45 26 Mechanical Ventilator 100 03/20/20 14:45 76 26 94/55 (68) 100 03/20/20 14:30 76 25 92/56 (68) 100 03/20/20 14:30 25 Mechanical Ventilator 100 03/20/20 14:15 102 23 105/61 (76) 94 03/20/20 14:15 23 Mechanical Ventilator 100 03/20/20 14:00 110/73 03/20/20 14:00 22 Mechanical Ventilator 100 03/20/20 14:00 106 26 123/68 (86) 88 03/20/20 14:00 100 03/20/20 13:54 104 24 119/74 (89) 98 03/20/20 13:45 85 22 112/69 (83) 100 03/20/20 13:45 22 Mechanical Ventilator 100 03/20/20 13:30 23 Mechanical Ventilator 100 5/4/20 13:30 79 23 90/54 (66) 100 03/20/20 13:15 100 18 114/71 (85) 87 03/20/20 13:15 20 Mechanical Ventilator 100 03/20/20 13:00 100 03/20/20 13:00 114/71 03/20/20 13:00 20 Mechanical Ventilator 100 03/20/20 13:00 102 24 125/75 (92) 86 03/20/20 12:45 101 23 139/88 (105) 94 03/20/20 12:45 24 Mechanical Ventilator 100 03/20/20 12:30 99 24 124/75 (91) 83 03/20/20 12:30 23 Mechanical Ventilator 100 03/20/20 12:15 97 22 152/80 (104) 89 03/20/20 12:15 21 Mechanical Ventilator 100 03/20/20 12:00 98.8 93 26 137/100 (112) 93 03/20/20 12:00 82 03/20/20 12:00 100 03/20/20 12:00 152/80 03/20/20 12:00 152/80 03/20/20 12:00 23 Mechanical Ventilator 100 03/20/20 12:00 Mechanical Ventilator Mechanical Ventilator 03/20/20 11:45 89 19 144/93 (110) 94 03/20/20 11:45 24 Mechanical Ventilator 100 03/20/20 11:30 89 19 150/97 (114) 94 03/20/20 11:30 25 Mechanical Ventilator 100 03/20/20 11:15 86 26 156/102 (120) 96 03/20/20 11:15 23 Mechanical Ventilator 100 03/20/20 11:00 112/71 03/20/20 11:00 112/71 03/20/20 11:00 22 Mechanical Ventilator 100 03/20/20 11:00 72 25 153/93 (113) 93 03/20/20 10:45 74 26 162/94 (116) 93 03/20/20 10:34 59 25 100 03/20/20 10:30 57 25 90/63 (72) 95 03/20/20 10:30 90/63 03/20/20 10:15 56 26 123/72 (89) 97 03/20/20 10:00 27 118/69 Mechanical Ventilator 100 03/20/20 10:00 118/69 03/20/20 10:00 27 Mechanical Ventilator 100 03/20/20 10:00 58 28 118/69 (85) 97 03/20/20 09:45 60 26 109/66 (80) 96 03/20/20 09:30 65 25 122/72 (89) 94 03/20/20 09:15 69 25 151/85 (107) 93 03/20/20 09:00 26 151/85 Mechanical Ventilator 93.0 03/20/20 09:00 151/85 03/20/20 09:00 26 Mechanical Ventilator 100 03/20/20 09:00 77 25 157/91 (113) 91 03/20/20 08:45 78 26 166/97 (120) 91 03/20/20 08:30 78 29 163/92 (115) 91 03/20/20 08:15 81 40 158/95 (116) 93 03/20/20 08:00 97.7 81 47 161/92 (115) 95 03/20/20 08:00 69 03/20/20 08:00 40 158/95 Mechanical Ventilator 100 03/20/20 08:00 158/95 03/20/20 08:00 158/95 03/20/20 08:00 44 Mechanical Ventilator 100 03/20/20 08:00 100 03/20/20 08:00 Mechanical Ventilator Mechanical Ventilator 03/20/20 07:45 82 47 158/89 (112) 95 03/20/20 07:30 82 45 149/87 (107) 95 03/20/20 07:15 74 44 130/77 (94) 96 03/20/20 07:12 40 Mechanical Ventilator 100 03/20/20 07:08 82 25 100 03/20/20 07:00 67 41 88/52 (64) 96 03/20/20 07:00 40 88/52 Mechanical Ventilator 100 03/20/20 07:00 88/52 03/20/20 07:00 87/54 03/20/20 07:00 40 Mechanical Ventilator 100 03/20/20 06:57 87/54 03/20/20 06:45 68 48 87/54 (65) 95 03/20/20 06:45 87/54 03/20/20 06:30 103/63 03/20/20 06:30 71 50 103/63 (76) 95 03/20/20 06:21 47 141/87 Mechanical Ventilator 100 03/20/20 06:15 89 53 141/87 (105) 93 03/20/20 06:15 141/87 03/20/20 06:00 92 42 159/92 (114) 92 03/20/20 06:00 42 159/92 Mechanical Ventilator 100 03/20/20 06:00 159/92 03/20/20 06:00 159/92 03/20/20 06:00 42 Mechanical Ventilator 100 03/20/20 05:45 160/93 03/20/20 05:45 160/93 03/20/20 05:45 88 48 160/93 (115) 94 03/20/20 05:30 146/82 03/20/20 05:30 146/82 03/20/20 05:30 91 46 146/82 (103) 94 03/20/20 05:24 93 25 100 03/20/20 05:15 147/85 03/20/20 05:15 147/85 03/20/20 05:15 94 39 147/85 (105) 93 03/20/20 05:00 25 149/85 Mechanical Ventilator 100 03/20/20 05:00 149/85 03/20/20 05:00 149/85 03/20/20 05:00 25 Mechanical Ventilator 100 03/20/20 05:00 95 25 149/85 (106) 92 03/20/20 04:45 95 25 150/87 (108) 92 03/20/20 04:45 25 150/87 Mechanical Ventilator 100 03/20/20 04:39 100.9 03/20/20 04:30 26 147/86 Mechanical Ventilator 100 03/20/20 04:30 96 26 147/86 (106) 92 03/20/20 04:15 93 27 145/84 (104) 91 03/20/20 04:15 29 147/86 Mechanical Ventilator 100 03/20/20 04:00 101.8 91 25 125/75 (92) 94 03/20/20 04:00 26 145/84 Mechanical Ventilator 100 03/20/20 04:00 145/84 03/20/20 04:00 145/84 03/20/20 04:00 26 Mechanical Ventilator 100 03/20/20 04:00 80 03/20/20 04:00 Mechanical Ventilator 03/20/20 04:00 100 03/20/20 03:48 77 26 87/49 (62) 94 03/20/20 03:45 79 25 89/48 (62) 94 03/20/20 03:42 76 25 100 03/20/20 03:30 76 27 82/44 (57) 93 03/20/20 03:29 22 109/58 Mechanical Ventilator 100 03/20/20 03:15 95 19 109/58 (75) 94 03/20/20 03:15 96 31 100 03/20/20 03:00 97 42 135/73 (93) 92 03/20/20 02:45 38 135/73 Mechanical Ventilator 100 03/20/20 02:45 99 35 115/78 (90) 91 03/20/20 02:30 34 115/78 Mechanical Ventilator 100 03/20/20 02:30 99 30 126/63 (84) 91 03/20/20 02:15 32 126/63 Mechanical Ventilator 100 03/20/20 02:15 99 35 125/74 (91) 91 03/20/20 02:00 100 32 123/83 (96) 03/20/20 02:00 32 123/83 Mechanical Ventilator 100 03/20/20 02:00 123/83 03/20/20 02:00 123/83 03/20/20 02:00 32 Mechanical Ventilator 100 03/20/20 01:45 38 133/78 Mechanical Ventilator 100 03/20/20 01:45 38 Mechanical Ventilator 100 03/20/20 01:45 100 28 133/78 (96) 90 03/20/20 01:30 100 28 133/80 (97) 90 03/20/20 01:30 30 133/78 Mechanical Ventilator 100 03/20/20 01:30 30 Mechanical Ventilator 100 03/20/20 01:30 98 30 100 03/20/20 01:15 100 32 124/74 (91) 90 03/20/20 01:15 23 133/80 Mechanical Ventilator 100 03/20/20 01:15 23 Mechanical Ventilator 100 03/20/20 01:00 99 24 132/75 (94) 90 03/20/20 01:00 29 124/75 Mechanical Ventilator 100 03/20/20 01:00 124/74 03/20/20 01:00 124/74 03/20/20 01:00 29 Mechanical Ventilator 100 03/20/20 00:45 28 131/84 Mechanical Ventilator 100 03/20/20 00:45 100 24 131/84 (100) 89 03/20/20 00:30 100 20 133/95 (108) 89 03/20/20 00:30 29 131/84 Mechanical Ventilator 100 03/20/20 00:15 25 133/95 Mechanical Ventilator 100 03/20/20 00:00 96 03/20/20 00:00 99.6 98 14 114/65 (81) 96 03/20/20 00:00 14 114/65 Mechanical Ventilator 100 03/20/20 00:00 114/65 03/20/20 00:00 114/65 03/20/20 00:00 14 Mechanical Ventilator 100 03/20/20 00:00 100 03/20/20 00:00 Mechanical Ventilator 03/19/20 23:45 91 23 110/59 (76) 86 03/19/20 23:45 114/65 03/19/20 23:40 100 25 137/90 (106) 90 03/19/20 23:39 17 123/81 Mechanical Ventilator 100 03/19/20 23:30 100 20 123/81 (95) 93 03/19/20 23:30 110/59 03/19/20 23:30 99 31 100 03/19/20 23:15 123/81 03/19/20 23:15 103 24 131/70 (90) 91 03/19/20 23:00 96/55 03/19/20 23:00 35 131/70 Mechanical Ventilator 100 03/19/20 23:00 96/55 03/19/20 23:00 27 Mechanical Ventilator 100 03/19/20 23:00 100.5 83 28 95/55 (68) 85 03/19/20 22:45 82/47 03/19/20 22:45 80 21 82/47 (59) 91 03/19/20 22:30 99 34 120/73 (89) 88 03/19/20 22:28 27 Mechanical Ventilator 100 03/19/20 22:15 96 19 115/75 (88) 88 03/19/20 22:07 95 25 119/78 (92) 87 03/19/20 22:00 119/78 03/19/20 22:00 23 119/78 Mechanical Ventilator 100 03/19/20 22:00 119/78 03/19/20 22:00 23 Mechanical Ventilator 100 03/19/20 22:00 100.0 82 25 82/49 (60) 91 03/19/20 21:45 98 21 89/51 (64) 92 03/19/20 21:45 119/78 03/19/20 21:45 82/49 03/19/20 21:37 119/64 03/19/20 21:30 100 23 119/64 (82) 92 03/19/20 21:30 99 30 100 03/19/20 21:30 89/51 03/19/20 21:15 96 22 92/70 (77) 92 03/19/20 21:15 119/64 03/19/20 21:00 93 26 89/55 (66) 94 03/19/20 21:00 89/55 03/19/20 21:00 21 89/51 Mechanical Ventilator 100 03/19/20 21:00 89/55 03/19/20 21:00 26 Mechanical Ventilator 100 03/19/20 20:30 96 19 89/51 (64) 78 03/19/20 20:00 100 03/19/20 20:00 110/61 03/19/20 20:00 22 117/64 Mechanical Ventilator 100 03/19/20 20:00 110/61 03/19/20 20:00 26 Mechanical Ventilator 100 03/19/20 20:00 102 03/19/20 20:00 Mechanical Ventilator 03/19/20 20:00 102 26 110/69 (83) 90 03/19/20 19:30 102 20 112/72 (85) 90 03/19/20 19:30 97 31 100 03/19/20 19:00 103 19 108/68 (81) 89 03/19/20 19:00 103 19 108/68 (81) 89 03/19/20 19:00 108/68 03/19/20 19:00 19 108/68 Mechanical Ventilator 03/19/20 19:00 108/68 03/19/20 19:00 19 Mechanical Ventilator 03/19/20 18:45 103 26 109/75 (86) 89 03/19/20 18:30 104 24 106/71 (83) 90 03/19/20 18:30 104 24 106/71 (83) 90 03/19/20 18:15 104 20 105/68 (80) 89 5/3/20 18:00 105/65 03/19/20 18:00 19 105/65 Mechanical Ventilator 03/19/20 18:00 105/65 03/19/20 18:00 19 Mechanical Ventilator 03/19/20 18:00 100.0 105 19 105/65 (78) 89 03/19/20 17:30 106 18 115/64 (81) 89 03/19/20 17:00 109/69 03/19/20 17:00 12 109/69 Mechanical Ventilator 03/19/20 17:00 109/69 03/19/20 17:00 12 Mechanical Ventilator 03/19/20 17:00 106 12 109/69 (82) 89 03/19/20 16:53 28 113/65 Mechanical Ventilator 03/19/20 16:30 107 12 118/70 (86) 89 03/19/20 16:30 106 28 100 03/19/20 16:15 110 13 117/74 (88) 88 03/19/20 16:11 100.5 122 29 126/86 (99) 89 03/19/20 16:00 100 03/19/20 16:00 Mechanical Ventilator 03/19/20 16:00 106 03/19/20 16:00 126/86 03/19/20 16:00 29 126/86 Mechanical Ventilator 03/19/20 16:00 126/86 03/19/20 16:00 29 Mechanical Ventilator 03/19/20 15:30 116 24 156/88 (110) 91 03/19/20 15:15 121 31 168/127 (141) 88 03/19/20 15:00 168/127 03/19/20 15:00 31 168/127 Mechanical Ventilator 03/19/20 15:00 168/127 03/19/20 15:00 31 Mechanical Ventilator 03/19/20 15:00 125 33 100 03/19/20 14:30 124 31 149/80 (103) 86 03/19/20 14:00 156/130 03/19/20 14:00 30 156/130 Mechanical Ventilator 03/19/20 14:00 156/130 03/19/20 14:00 30 Mechanical Ventilator 03/19/20 14:00 123 30 156/130 (139) 90 03/19/20 13:30 124 41 149/92 (111) 92 03/19/20 13:00 120 23 141/77 (98) 92 03/19/20 13:00 141/77 03/19/20 13:00 141/77 03/19/20 13:00 23 Mechanical Ventilator 03/19/20 12:30 117 28 150/60 (90) 91 03/19/20 12:17 122 35 100 03/19/20 12:00 100 03/19/20 12:00 146/103 03/19/20 12:00 146/103 03/19/20 12:00 26 Mechanical Ventilator 03/19/20 12:00 117 03/19/20 12:00 117 26 146/103 (117) 90 03/19/20 12:00 Mechanical Ventilator 03/19/20 11:48 132/79 03/19/20 11:30 115 20 142/66 (91) 92 03/19/20 11:18 85 19 145/90 (108) 93 03/19/20 11:00 145/90 03/19/20 11:00 145/90 03/19/20 11:00 19 Mechanical Ventilator 03/19/20 11:00 100.0 85 19 145/90 (108) 93 03/19/20 10:30 97 30 100 03/19/20 10:00 96 47 154/82 (106) 86 03/19/20 10:00 154/82 03/19/20 10:00 26 154/82 Mechanical Ventilator 03/19/20 10:00 154/82 03/19/20 10:00 26 Mechanical Ventilator 03/19/20 09:30 72 26 154/82 (106) 98 03/19/20 09:23 75 28 100 03/19/20 09:15 22 Mechanical Ventilator 03/19/20 09:00 72 26 129/71 (90) 98 03/19/20 09:00 129/71 03/19/20 09:00 26 129/71 Mechanical Ventilator 03/19/20 09:00 129/71 03/19/20 09:00 26 Mechanical Ventilator 03/19/20 08:30 72 26 136/67 (90) 98 03/19/20 08:00 100 03/19/20 08:00 100 03/19/20 08:00 131/71 03/19/20 08:00 22 131/71 Mechanical Ventilator 03/19/20 08:00 131/71 03/19/20 08:00 22 Mechanical Ventilator 03/19/20 08:00 74 22 131/71 (91) 97 03/19/20 08:00 Mechanical Ventilator 03/19/20 07:48 75 28 100 Intake and Output 03/20/20 03/21/20 19:00 07:00 Intake Total 1804.01702 ml 1703.75 ml Output Total 910 ml 980 ml Balance 894.09586 ml 723.75 ml Free Water 20 ml IV Total 1159.33561 ml 988.75 ml Tube Feeding 445 ml 495 ml Other 180 ml 220 ml Output Urine Total 910 ml 980 ml Labs Test 03/19/20 05:15 03/19/20 09:45 03/19/20 10:18 03/19/20 10:20 White Blood Count 11.2 K/UL (4.8-10.8) Red Blood Count 3.05 M/UL (4.20-5.40) Hemoglobin 10.0 G/DL (12.0-16.0) Hematocrit 30.3 % (37.0-47.0) Mean Corpuscular Volume 99 FL (80-99) Mean Corpuscular Hemoglobin 32.9 PG (27.0-31.0) Mean Corpuscular Hemoglobin Concent 33.2 G/DL (32.0-36.0) Red Cell Distribution Width 16.6 % (11.6-14.8) Platelet Count 121 K/UL (150-450) Mean Platelet Volume 6.8 FL (6.5-10.1) Neutrophils (%) (Auto) % (45.0-75.0) Lymphocytes (%) (Auto) % (20.0-45.0) Monocytes (%) (Auto) % (1.0-10.0) Eosinophils (%) (Auto) % (0.0-3.0) Basophils (%) (Auto) % (0.0-2.0) Differential Total Cells Counted 100 Neutrophils % (Manual) 83 % (45-75) Lymphocytes % (Manual) 12 % (20-45) Monocytes % (Manual) 5 % (1-10) Eosinophils % (Manual) 0 % (0-3) Basophils % (Manual) 0 % (0-2) Band Neutrophils 0 % (0-8) Platelet Estimate Decreased Platelet Morphology Normal Anisocytosis 1+ Macrocytosis 1+ Sodium Level 124 MMOL/L (136-145) Potassium Level 5.3 MMOL/L (3.5-5.1) Chloride Level 92 MMOL/L (98-107) Carbon Dioxide Level 32 MMOL/L (21-32) Anion Gap 1 mmol/L (5-15) Blood Urea Nitrogen 11 mg/dL (7-18) Creatinine 0.7 MG/DL (0.55-1.30) Estimat Glomerular Filtration Rate > 60 mL/min (>60) Glucose Level 162 MG/DL (74-106) Calcium Level 7.2 MG/DL (8.5-10.1) Magnesium Level 1.9 MG/DL (1.8-2.4) Total Bilirubin 1.3 MG/DL (0.2-1.0) Direct Bilirubin 0.7 MG/DL (0.0-0.3) Aspartate Amino Transf (AST/SGOT) 66 U/L (15-37) Alanine Aminotransferase (ALT/SGPT) 24 U/L (12-78) Alkaline Phosphatase 145 U/L (46-116) Ammonia 96 umol/L (11-32) Total Protein 8.9 G/DL (6.4-8.2) Albumin 1.7 G/DL (3.4-5.0) Globulin 7.2 g/dL Albumin/Globulin Ratio 0.2 (1.0-2.7) Urine Osmolality 457 mOsm/kg (429-449) Urine Random Sodium < 20 mmol/L (20-110) Arterial Blood pH 7.257 (7.350-7.450) Arterial Blood Partial Pressure CO2 67.6 mmHg (35.0-45.0) Arterial Blood Partial Pressure O2 65.4 mmHg (75.0-100.0) Arterial Blood HCO3 29.4 mmol/L (22.0-26.0) Arterial Blood Oxygen Saturation 89.8 % (95-100) Arterial Blood Base Excess 1.2 (-2-2) Joaquin Test Positive Osmolality 277 mOsm/kg (297-317) Uric Acid 3.6 MG/DL (2.6-7.2) Phosphorus Level 3.4 MG/DL (2.5-4.9) Test 03/19/20 15:00 03/19/20 18:30 03/20/20 05:37 03/20/20 08:24 Arterial Blood pH 7.406 (7.350-7.450) 7.340 (7.350-7.450) 7.296 (7.350-7.450) Arterial Blood Partial Pressure CO2 41.1 mmHg (35.0-45.0) 58.5 mmHg (35.0-45.0) 51.5 mmHg (35.0-45.0) Arterial Blood Partial Pressure O2 50.2 mmHg (75.0-100.0) 62.5 mmHg (75.0-100.0) 65.7 mmHg (75.0-100.0) Arterial Blood HCO3 25.2 mmol/L (22.0-26.0) 30.9 mmol/L (22.0-26.0) 24.5 mmol/L (22.0-26.0) Arterial Blood Oxygen Saturation 85.6 % (95-100) 90.1 % (95-100) 89.8 % (95-100) Arterial Blood Base Excess 0.5 (-2-2) 4.1 (-2-2) -2.3 (-2-2) Joaquin Test Positive Positive N/a White Blood Count 11.7 K/UL (4.8-10.8) Red Blood Count 3.03 M/UL (4.20-5.40) Hemoglobin 10.1 G/DL (12.0-16.0) Hematocrit 30.7 % (37.0-47.0) Mean Corpuscular Volume 101 FL (80-99) Mean Corpuscular Hemoglobin 33.4 PG (27.0-31.0) Mean Corpuscular Hemoglobin Concent 32.9 G/DL (32.0-36.0) Red Cell Distribution Width 17.3 % (11.6-14.8) Platelet Count 162 K/UL (150-450) Mean Platelet Volume 5.8 FL (6.5-10.1) Neutrophils (%) (Auto) 77.5 % (45.0-75.0) Lymphocytes (%) (Auto) 10.6 % (20.0-45.0) Monocytes (%) (Auto) 11.0 % (1.0-10.0) Eosinophils (%) (Auto) 0.0 % (0.0-3.0) Basophils (%) (Auto) 0.8 % (0.0-2.0) D-Dimer 9.71 mg/L FEU (0.00-0.49) Sodium Level 123 MMOL/L (136-145) Potassium Level 5.0 MMOL/L (3.5-5.1) Chloride Level 90 MMOL/L (98-107) Carbon Dioxide Level 28 MMOL/L (21-32) Anion Gap 5 mmol/L (5-15) Blood Urea Nitrogen 20 mg/dL (7-18) Creatinine 0.8 MG/DL (0.55-1.30) Estimat Glomerular Filtration Rate > 60 mL/min (>60) Glucose Level 193 MG/DL (74-106) Hemoglobin A1c 5.4 % (4.3-6.0) Uric Acid 4.5 MG/DL (2.6-7.2) Calcium Level 7.9 MG/DL (8.5-10.1) Phosphorus Level 3.4 MG/DL (2.5-4.9) Magnesium Level 2.1 MG/DL (1.8-2.4) Total Bilirubin 2.1 MG/DL (0.2-1.0) Direct Bilirubin 1.1 MG/DL (0.0-0.3) Gamma Glutamyl Transpeptidase 106 U/L (5-85) Aspartate Amino Transf (AST/SGOT) 96 U/L (15-37) Alanine Aminotransferase (ALT/SGPT) 25 U/L (12-78) Alkaline Phosphatase 142 U/L (46-116) Ammonia 116 umol/L (11-32) Lactate Dehydrogenase 625 U/L (81-234) Troponin I 0.409 ng/mL (0.000-0.056) C-Reactive Protein, Quantitative 8.8 mg/dL (0.00-0.90) Pro-B-Type Natriuretic Peptide > 41086 pg/mL (0-125) Total Protein 9.4 G/DL (6.4-8.2) Albumin 2.4 G/DL (3.4-5.0) Globulin 7.0 g/dL Albumin/Globulin Ratio 0.3 (1.0-2.7) Triglycerides Level 284 MG/DL (30-150) Cholesterol Level 74 MG/DL (< 200) LDL Cholesterol 52 mg/dL (<100) HDL Cholesterol 8 MG/DL (40-60) Cholesterol/HDL Ratio 9.3 (3.3-4.4) Thyroid Stimulating Hormone (TSH) 4.026 uiU/mL (0.358-3.740) Test 03/20/20 15:43 03/21/20 05:18 Arterial Blood pH 7.287 (7.350-7.450) Arterial Blood Partial Pressure CO2 56.5 mmHg (35.0-45.0) Arterial Blood Partial Pressure O2 76.9 mmHg (75.0-100.0) Arterial Blood HCO3 26.4 mmol/L (22.0-26.0) Arterial Blood Oxygen Saturation 93.2 % (95-100) Arterial Blood Base Excess -0.6 (-2-2) Joaquin Test Positive White Blood Count 11.2 K/UL (4.8-10.8) Red Blood Count 2.76 M/UL (4.20-5.40) Hemoglobin 9.2 G/DL (12.0-16.0) Hematocrit 27.9 % (37.0-47.0) Mean Corpuscular Volume 101 FL (80-99) Mean Corpuscular Hemoglobin 33.5 PG (27.0-31.0) Mean Corpuscular Hemoglobin Concent 33.1 G/DL (32.0-36.0) Red Cell Distribution Width 17.3 % (11.6-14.8) Platelet Count 161 K/UL (150-450) Mean Platelet Volume 7.4 FL (6.5-10.1) Neutrophils (%) (Auto) 79.2 % (45.0-75.0) Lymphocytes (%) (Auto) 5.6 % (20.0-45.0) Monocytes (%) (Auto) 14.4 % (1.0-10.0) Eosinophils (%) (Auto) 0.0 % (0.0-3.0) Basophils (%) (Auto) 0.9 % (0.0-2.0) Height (Feet): 5 Height (Inches): 1.00 Weight (Pounds): 240 Objective Physical Exam: Vitals: reviewed General: NAD HEENT: nc, at Neck: supple Chest: crackles b/l, mech breath sounds ++intubated Cardiovascular: RRR, no s3, s4 EXT ++ Significant edema and erythema bilateral lower extremity, patient also has blistering on both feet given the edema, whittish overcrust/crusting++ Neurologic: sedated Skin: other - As above Brett Mcclain MD March 21, 2020 07:17
--- NOTE | 2020-03-21 07:26 | General Progress Note ---
Assessment/Plan Problem List: (1) Hypothyroid ICD Codes: E03.9 - Hypothyroidism, unspecified SNOMED: 65637910 (2) COVID-19 ICD Codes: U07.1 - COVID-19 SNOMED: 817271029 (3) Respiratory failure with hypoxia ICD Codes: J96.91 - Respiratory failure, unspecified with hypoxia SNOMED: [id number] Qualifiers: Qualified Codes: J96.01 - Acute respiratory failure with hypoxia (4) Respiratory distress ICD Codes: R06.03 - Acute respiratory distress SNOMED: 761642867 (5) Cellulitis ICD Codes: L03.90 - Cellulitis, unspecified SNOMED: 139116789 Qualifiers: Qualified Codes: L03.119 - Cellulitis of unspecified part of limb (6) Macrocytic anemia ICD Codes: D53.9 - Nutritional anemia, unspecified SNOMED: 50319123 Status: progressing, unchanged Assessment/Plan: continue Levothyroxine 50 mcg IV daily continue Novolog sliding scale every 6 hours Subjective ROS Limited/Unobtainable: Yes Allergies: Coded Allergies: No Known Allergies (Unverified , 02/29/20) Subjective events noted Item Value Date Time Bedside Blood Glucose 183 mg/dl H 03/21/20 0540 Bedside Blood Glucose 186 mg/dl H 03/21/20 0002 Bedside Blood Glucose 198 mg/dl H 03/20/20 1803 Bedside Blood Glucose 214 mg/dl H 03/20/20 1212 Bedside Blood Glucose 194 mg/dl H 03/20/20 0556 Bedside Blood Glucose 151 mg/dl H 03/19/20 2324 Objective Last 24 Hour Vital Signs Date Time Temp Pulse Resp B/P (MAP) Pulse Ox O2 Delivery O2 Flow Rate FiO2 03/21/20 06:00 59 26 127/73 (91) 99 03/21/20 06:00 127/73 03/21/20 06:00 26 Mechanical Ventilator 100 03/21/20 05:30 57 26 126/77 (93) 99 03/21/20 05:03 126/76 03/21/20 05:02 28 Mechanical Ventilator 100 03/21/20 05:00 126/76 03/21/20 05:00 28 Mechanical Ventilator 100 03/21/20 05:00 58 26 126/76 (93) 97 03/21/20 04:30 97.6 60 26 118/71 (87) 99 03/21/20 04:00 100 03/21/20 04:00 Mechanical Ventilator Mechanical Ventilator 03/21/20 04:00 109/69 03/21/20 04:00 26 Mechanical Ventilator 100 03/21/20 04:00 66 26 109/69 (82) 95 03/21/20 04:00 62 03/21/20 03:30 63 31 105/64 (78) 99 03/21/20 03:00 64 28 102/61 (75) 98 03/21/20 03:00 102/61 03/21/20 03:00 28 Mechanical Ventilator 100 03/21/20 02:36 81 28 100 03/21/20 02:30 72 28 104/64 (77) 97 03/21/20 02:00 68 27 106/63 (77) 99 03/21/20 02:00 106/63 03/21/20 02:00 27 Mechanical Ventilator 100 03/21/20 01:30 65 27 112/65 (81) 99 03/21/20 01:00 63 32 118/69 (85) 99 03/21/20 01:00 118/69 03/21/20 01:00 32 Mechanical Ventilator 100 03/21/20 00:44 78 26 100 03/21/20 00:30 61 32 120/70 (87) 99 03/21/20 00:00 Mechanical Ventilator Mechanical Ventilator 03/21/20 00:00 63 03/21/20 00:00 125/73 03/21/20 00:00 26 Mechanical Ventilator 100 03/21/20 00:00 97.9 64 26 125/73 (90) 98 03/20/20 23:30 63 28 123/73 (90) 98 03/20/20 23:00 63 26 125/70 (88) 97 03/20/20 23:00 125/70 03/20/20 23:00 26 Mechanical Ventilator 100 03/20/20 22:44 71 27 100 03/20/20 22:30 59 28 120/72 (88) 99 03/20/20 22:17 28 Mechanical Ventilator 100 03/20/20 22:00 110/68 03/20/20 22:00 26 Mechanical Ventilator 100 03/20/20 22:00 59 26 110/68 (82) 99 03/20/20 21:30 62 55 106/65 (79) 99 03/20/20 21:02 68 26 100 03/20/20 21:00 63 50 100/63 (75) 99 03/20/20 21:00 100/63 03/20/20 21:00 26 Mechanical Ventilator 100 03/20/20 20:30 68 48 95/60 (72) 98 03/20/20 20:00 72 03/20/20 20:00 91/61 03/20/20 20:00 28 Mechanical Ventilator 100 03/20/20 20:00 Mechanical Ventilator Mechanical Ventilator 03/20/20 20:00 100 03/20/20 20:00 98.6 72 48 91/61 (71) 86 03/20/20 19:30 73 42 90/57 (68) 91 03/20/20 19:20 69 26 100 03/20/20 19:15 74 50 91/56 (68) 93 03/20/20 19:00 91/56 03/20/20 19:00 26 Mechanical Ventilator 100 03/20/20 19:00 75 53 91/59 (70) 95 03/20/20 18:45 76 51 92/59 (70) 94 03/20/20 18:30 76 51 90/57 (68) 93 03/20/20 18:23 76 49 85/53 (64) 93 03/20/20 18:15 74 34 79/65 (70) 85 03/20/20 18:00 67 26 102/67 (79) 100 03/20/20 18:00 85/53 03/20/20 18:00 26 Mechanical Ventilator 100 03/20/20 17:45 65 26 104/64 (77) 100 03/20/20 17:30 63 26 101/66 (78) 100 03/20/20 17:15 63 26 100/63 (75) 100 03/20/20 17:00 100/63 03/20/20 17:00 26 Mechanical Ventilator 100 03/20/20 17:00 63 26 98/65 (76) 100 03/20/20 16:58 64 26 96 Mechanical Ventilator 100 03/20/20 16:45 64 26 97/62 (74) 99 03/20/20 16:30 64 26 97/61 (73) 97 03/20/20 16:19 26 Mechanical Ventilator 100 03/20/20 16:18 26 Mechanical Ventilator 100 03/20/20 16:15 66 26 93/57 (69) 91 03/20/20 16:05 26 Mechanical Ventilator 100 03/20/20 16:00 Mechanical Ventilator Mechanical Ventilator 03/20/20 16:00 93/57 03/20/20 16:00 26 Mechanical Ventilator 100 03/20/20 16:00 97.7 68 26 97/54 (68) 94 03/20/20 16:00 69 03/20/20 15:55 26 Mechanical Ventilator 100 03/20/20 15:50 26 Mechanical Ventilator 100 03/20/20 15:45 26 Mechanical Ventilator 100 03/20/20 15:45 71 26 96/53 (67) 80 03/20/20 15:40 26 Mechanical Ventilator 100 03/20/20 15:35 26 Mechanical Ventilator 100 03/20/20 15:30 26 Mechanical Ventilator 100 03/20/20 15:30 68 26 41/17 (25) 99 03/20/20 15:25 26 Mechanical Ventilator 100 03/20/20 15:20 26 Mechanical Ventilator 100 03/20/20 15:15 70 26 95/54 (68) 99 03/20/20 15:15 26 Mechanical Ventilator 100 03/20/20 15:10 26 Mechanical Ventilator 100 03/20/20 15:07 64 26 100 03/20/20 15:05 26 Mechanical Ventilator 100 03/20/20 15:00 74 26 91/59 (70) 98 03/20/20 15:00 95/53 03/20/20 15:00 26 Mechanical Ventilator 100 03/20/20 14:45 26 Mechanical Ventilator 100 03/20/20 14:45 76 26 94/55 (68) 100 03/20/20 14:30 76 25 92/56 (68) 100 03/20/20 14:30 25 Mechanical Ventilator 100 03/20/20 14:15 102 23 105/61 (76) 94 03/20/20 14:15 23 Mechanical Ventilator 100 03/20/20 14:00 110/73 03/20/20 14:00 22 Mechanical Ventilator 100 03/20/20 14:00 106 26 123/68 (86) 88 03/20/20 14:00 100 03/20/20 13:54 104 24 119/74 (89) 98 03/20/20 13:45 85 22 112/69 (83) 100 03/20/20 13:45 22 Mechanical Ventilator 100 03/20/20 13:30 23 Mechanical Ventilator 100 03/20/20 13:30 79 23 90/54 (66) 100 03/20/20 13:15 100 18 114/71 (85) 87 03/20/20 13:15 20 Mechanical Ventilator 100 03/20/20 13:00 100 03/20/20 13:00 114/71 03/20/20 13:00 20 Mechanical Ventilator 100 03/20/20 13:00 102 24 125/75 (92) 86 03/20/20 12:45 101 23 139/88 (105) 94 03/20/20 12:45 24 Mechanical Ventilator 100 03/20/20 12:30 99 24 124/75 (91) 83 03/20/20 12:30 23 Mechanical Ventilator 100 03/20/20 12:15 97 22 152/80 (104) 89 03/20/20 12:15 21 Mechanical Ventilator 100 03/20/20 12:00 98.8 93 26 137/100 (112) 93 03/20/20 12:00 82 03/20/20 12:00 100 03/20/20 12:00 152/80 03/20/20 12:00 152/80 03/20/20 12:00 23 Mechanical Ventilator 100 03/20/20 12:00 Mechanical Ventilator Mechanical Ventilator 03/20/20 11:45 89 19 144/93 (110) 94 03/20/20 11:45 24 Mechanical Ventilator 100 03/20/20 11:30 89 19 150/97 (114) 94 03/20/20 11:30 25 Mechanical Ventilator 100 03/20/20 11:15 86 26 156/102 (120) 96 03/20/20 11:15 23 Mechanical Ventilator 100 03/20/20 11:00 112/71 03/20/20 11:00 112/71 03/20/20 11:00 22 Mechanical Ventilator 100 03/20/20 11:00 72 25 153/93 (113) 93 03/20/20 10:45 74 26 162/94 (116) 93 03/20/20 10:34 59 25 100 03/20/20 10:30 57 25 90/63 (72) 95 03/20/20 10:30 90/63 03/20/20 10:15 56 26 123/72 (89) 97 03/20/20 10:00 27 118/69 Mechanical Ventilator 100 03/20/20 10:00 118/69 03/20/20 10:00 27 Mechanical Ventilator 100 03/20/20 10:00 58 28 118/69 (85) 97 03/20/20 09:45 60 26 109/66 (80) 96 03/20/20 09:30 65 25 122/72 (89) 94 03/20/20 09:15 69 25 151/85 (107) 93 03/20/20 09:00 26 151/85 Mechanical Ventilator 93.0 03/20/20 09:00 151/85 03/20/20 09:00 26 Mechanical Ventilator 100 03/20/20 09:00 77 25 157/91 (113) 91 03/20/20 08:45 78 26 166/97 (120) 91 03/20/20 08:30 78 29 163/92 (115) 91 03/20/20 08:15 81 40 158/95 (116) 93 03/20/20 08:00 97.7 81 47 161/92 (115) 95 03/20/20 08:00 69 03/20/20 08:00 40 158/95 Mechanical Ventilator 100 03/20/20 08:00 158/95 03/20/20 08:00 158/95 03/20/20 08:00 44 Mechanical Ventilator 100 03/20/20 08:00 100 03/20/20 08:00 Mechanical Ventilator Mechanical Ventilator 03/20/20 07:45 82 47 158/89 (112) 95 03/20/20 07:30 82 45 149/87 (107) 95 Intake and Output 03/20/20 03/21/20 19:00 07:00 Intake Total 1804.58968 ml 1703.75 ml Output Total 910 ml 980 ml Balance 894.67153 ml 723.75 ml Free Water 20 ml IV Total 1159.02577 ml 988.75 ml Tube Feeding 445 ml 495 ml Other 180 ml 220 ml Output Urine Total 910 ml 980 ml Laboratory Tests 03/20/20 08:24: Arterial Blood pH 7.296L, Arterial Blood Partial Pressure CO2 51.5H, Arterial Blood Partial Pressure O2 65.7L, Arterial Blood HCO3 24.5, Arterial Blood Oxygen Saturation 89.8*L, Arterial Blood Base Excess -2.3L, Joaquin Test N/a 03/20/20 15:43: Arterial Blood pH 7.287L, Arterial Blood Partial Pressure CO2 56.5*H, Arterial Blood Partial Pressure O2 76.9, Arterial Blood HCO3 26.4H, Arterial Blood Oxygen Saturation 93.2L, Arterial Blood Base Excess -0.6, Joaquin Test Positive 03/21/20 05:18: White Blood Count 11.2H, Red Blood Count 2.76L, Hemoglobin 9.2L, Hematocrit 27.9L, Mean Corpuscular Volume 101H, Mean Corpuscular Hemoglobin 33.5H, Mean Corpuscular Hemoglobin Concent 33.1, Red Cell Distribution Width 17.3H, Platelet Count 161, Mean Platelet Volume 7.4, Neutrophils (%) (Auto) 79.2H, Lymphocytes (%) (Auto) 5.6L, Monocytes (%) (Auto) 14.4H, Eosinophils (%) (Auto) 0.0, Basophils (%) (Auto) 0.9, Sodium Level [Pending], Potassium Level [Pending] , Chloride Level [Pending], Carbon Dioxide Level [Pending], Blood Urea Nitrogen [Pending], Creatinine [Pending], Estimat Glomerular Filtration Rate [Pending], Glucose Level [Pending], Uric Acid [Pending], Calcium Level [Pending], Phosphorus Level [Pending], Magnesium Level [Pending], Iron Level [Pending], Unsaturated Iron Binding [Pending], Ferritin [Pending], Total Bilirubin [Pending ], Aspartate Amino Transf (AST/SGOT) [Pending], Alanine Aminotransferase (ALT/ SGPT) [Pending], Alkaline Phosphatase [Pending], C-Reactive Protein, Quantitative [Pending], Pro-B-Type Natriuretic Peptide [Pending], Total Protein [Pending], Albumin [Pending], Globulin [Pending], Vitamin B12 Level [Pending], Folate [Pending] Height (Feet): 5 Height (Inches): 1.00 Weight (Pounds): 240 General Appearance: severe distress Neck: normal alignment Cardiovascular: tachycardia Respiratory/Chest: decreased breath sounds Abdomen: normal bowel sounds Objective Current Medications Medications (Trade) Dose Ordered Sig/Dolores Route PRN Reason Start Time Stop Time Status Last Admin Dose Admin Acetaminophen (Tylenol) 650 mg Q4H PRN ORAL Temp >100 03/13/20 14:53 04/12/20 14:52 03/19/20 06:25 Acetaminophen (Tylenol) 650 mg Q4H PRN ORAL Mild Pain (Pain Scale 1-3) 03/13/20 14:53 04/12/20 14:52 03/20/20 04:09 Chlorhexidine Gluconate (Lucretia-Hex 2%) 1 applic DAILY@2000 TOPIC 03/13/20 20:00 06/11/20 19:59 03/20/20 20:16 Dextrose (Dextrose 50%) 25 ml Q30M PRN IV Hypoglycemia 03/16/20 09:30 06/14/20 09:29 Dextrose (Dextrose 50%) 50 ml Q30M PRN IV Hypoglycemia 03/16/20 09:30 06/14/20 09:29 Dopamine HCl/ Dextrose 250 ml @ 0 mls/hr Q24H IV 03/16/20 19:30 06/14/20 19:29 03/20/20 11:00 Enoxaparin Sodium (Lovenox) 40 mg DAILY SUBQ 03/19/20 09:00 04/03/20 08:59 03/20/20 09:32 Fentanyl Citrate 2500 mcg/Sodium Chloride 250 ml @ 0 mls/hr Q24H IV 03/15/20 18:30 03/22/20 18:29 03/21/20 05:02 Insulin Aspart (NovoLOG) Q6HR SUBQ 03/16/20 12:00 06/14/20 11:59 03/21/20 05:36 Lactulose (Cephulac) 30 gm THREE TIMES A DAY NG 03/20/20 13:00 04/19/20 12:59 03/20/20 18:03 Levofloxacin (Levaquin) 750 mg DAILY NG 03/20/20 12:00 03/27/20 11:59 03/20/20 11:47 Levothyroxine Sodium (Synthroid) 50 mcg DAILY IV 03/21/20 09:00 04/17/20 11:59 Methylprednisolone Sodium Succinate (Solu-MEDROL) 50 mg EVERY 12 HOURS IVP 03/20/20 21:00 06/17/20 20:59 03/20/20 21:37 Metoclopramide HCl (Reglan) 10 mg Q6H IVP 03/17/20 10:15 04/16/20 10:14 03/21/20 04:00 Midodrine (Pro-Amatine) 10 mg THREE TIMES A DAY NG 03/20/20 13:00 06/18/20 12:59 03/20/20 18:03 Mirtazapine (Remeron) 7.5 mg BEDTIME PRN ORAL SLEEP 03/13/20 14:55 06/11/20 14:54 Non-Formulary Medication (Non-Formulary Med) 1 ea DAILY IV 03/18/20 09:00 04/17/20 08:59 UNV Norepinephrine Bitartrate 16 mg/ Dextrose 500 ml @ 0 mls/hr Q24H IV 03/17/20 21:00 04/16/20 13:02 03/21/20 05:03 Polyethylene Glycol (Miralax) 17 gm BEDTIME ORAL 03/19/20 21:00 04/18/20 20:59 03/20/20 21:37 Propofol 100 ml @ 0 mls/hr Q24H IV 03/19/20 23:30 03/21/20 23:29 03/20/20 06:21 Rifaximin (Xifaxan) 550 mg EVERY 12 HOURS ORAL 03/18/20 09:00 03/25/20 08:59 03/20/20 21:37 Vasopressin 100 units/Sodium Chloride 100 ml @ 0 mls/hr Q24H PRN IV For hypotension 03/16/20 11:00 04/15/20 10:59 03/19/20 18:03 Johan Christopher MD March 21, 2020 07:26
[2020-03-21 07:57] LABS: ALANINE AMINOTRANSFERASE 26 U/L (12-78); ALBUMIN 2.4 G/DL (3.4-5.0); ALBUMIN/GLOBULIN RATIO 0.4 (1.0-2.7); ALKALINE PHOSPHATASE 122 U/L (46-116); ANION GAP 4 mmol/L (5-15); ASPARTATE AMINO TRANSFERASE 66 U/L (15-37); BILIRUBIN,TOTAL 1.6 MG/DL (0.2-1.0); BLOOD UREA NITROGEN 22 mg/dL (7-18); CALCIUM 8.1 MG/DL (8.5-10.1); CARBON DIOXIDE 30 MMOL/L (21-32); CHLORIDE 100 MMOL/L (98-107); CREATININE 0.8 MG/DL (0.55-1.30); FERRITIN 1310 NG/ML (8-388); PHOSPHORUS 3.2 MG/DL (2.5-4.9); POTASSIUM 4.5 MMOL/L (3.5-5.1); SODIUM 134 MMOL/L (136-145)
[2020-03-21 08:02] LABS: BILIRUBIN,DIRECT 0.8 MG/DL (0.0-0.3)
[2020-03-21 08:07] LABS: % IRON SATURATION 91 % (15-50); IRON 126 ug/dL (50-175); TOTAL IRON BINDING CAPACITY 138 ug/dL (250-450)
[2020-03-21] MEDS: Solu-MEDROL 125mg Inj IVP SCH ×2 (08:54→19:55)
[2020-03-21] MEDS: Enoxaparin 40mg Inj SUBQ SCH (08:55)
[2020-03-21] MEDS: Levofloxacin 750mg tab NG SCH (08:55)
[2020-03-21] MEDS: Midodrine 10mg tab NG SCH ×3 (08:55→17:44)
[2020-03-21] MEDS: Lactulose 20gm/30ml UDC NG SCH (08:56)
--- NOTE | 2020-03-21 09:55 | Nephrology Progress Note ---
Assessment/Plan Problem List: (1) Electrolyte imbalance Assessment: Hyponatremia resolved -hyperkalemia resolved (2) COVID-19 (3) Respiratory failure with hypoxia (4) Cellulitis (5) Hypothyroid Assessment Hyponatremia. Serum sodium started drifting down from March 16. Hyperkalemia. Septic shock. Acute respiratory failure. Respiratory failure and COVID pneumonia. 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 to spikemaking supervisor Urine sodium is below 20 Serum ammonia is elevated will start lactulose Patient on Solu-Medrol and Solu-Cortef will discontinue Solu-Cortef Will try to gently diurese for severe edema meanwhile administering albumin 25% as needed Monitor electrolytes and renal parameters We will add midodrine 10 mg 3 times a day via NG tube Decrease dosage of IV Synthroid Discussed with DAO Starr Subjective ROS Limited/Unobtainable: Yes Objective Objective Last 24 Hour Vital Signs Date Time Temp Pulse Resp B/P (MAP) Pulse Ox O2 Delivery O2 Flow Rate FiO2 03/21/20 07:18 69 26 100 03/21/20 07:00 123/70 03/21/20 07:00 26 Mechanical Ventilator 100 03/21/20 07:00 61 26 123/70 (87) 97 03/21/20 06:30 62 26 129/75 (93) 98 03/21/20 06:00 59 26 127/73 (91) 99 03/21/20 06:00 127/73 03/21/20 06:00 26 Mechanical Ventilator 100 03/21/20 05:30 57 26 126/77 (93) 99 03/21/20 05:03 126/76 03/21/20 05:02 28 Mechanical Ventilator 100 03/21/20 05:00 126/76 03/21/20 05:00 28 Mechanical Ventilator 100 03/21/20 05:00 58 26 126/76 (93) 97 03/21/20 04:30 97.6 60 26 118/71 (87) 99 03/21/20 04:00 100 03/21/20 04:00 Mechanical Ventilator Mechanical Ventilator 03/21/20 04:00 109/69 03/21/20 04:00 26 Mechanical Ventilator 100 03/21/20 04:00 66 26 109/69 (82) 95 03/21/20 04:00 62 03/21/20 03:30 63 31 105/64 (78) 99 03/21/20 03:00 64 28 102/61 (75) 98 03/21/20 03:00 102/61 03/21/20 03:00 28 Mechanical Ventilator 100 03/21/20 02:36 81 28 100 03/21/20 02:30 72 28 104/64 (77) 97 03/21/20 02:00 68 27 106/63 (77) 99 03/21/20 02:00 106/63 03/21/20 02:00 27 Mechanical Ventilator 100 03/21/20 01:30 65 27 112/65 (81) 99 03/21/20 01:00 63 32 118/69 (85) 99 03/21/20 01:00 118/69 03/21/20 01:00 32 Mechanical Ventilator 100 03/21/20 00:44 78 26 100 03/21/20 00:30 61 32 120/70 (87) 99 03/21/20 00:00 Mechanical Ventilator Mechanical Ventilator 03/21/20 00:00 63 03/21/20 00:00 125/73 03/21/20 00:00 26 Mechanical Ventilator 100 03/21/20 00:00 97.9 64 26 125/73 (90) 98 03/20/20 23:30 63 28 123/73 (90) 98 03/20/20 23:00 63 26 125/70 (88) 97 03/20/20 23:00 125/70 03/20/20 23:00 26 Mechanical Ventilator 100 03/20/20 22:44 71 27 100 03/20/20 22:30 59 28 120/72 (88) 99 03/20/20 22:17 28 Mechanical Ventilator 100 03/20/20 22:00 110/68 03/20/20 22:00 26 Mechanical Ventilator 100 03/20/20 22:00 59 26 110/68 (82) 99 03/20/20 21:30 62 55 106/65 (79) 99 03/20/20 21:02 68 26 100 03/20/20 21:00 63 50 100/63 (75) 99 03/20/20 21:00 100/63 03/20/20 21:00 26 Mechanical Ventilator 100 03/20/20 20:30 68 48 95/60 (72) 98 03/20/20 20:00 72 03/20/20 20:00 91/61 03/20/20 20:00 28 Mechanical Ventilator 100 03/20/20 20:00 Mechanical Ventilator Mechanical Ventilator 03/20/20 20:00 100 03/20/20 20:00 98.6 72 48 91/61 (71) 86 03/20/20 19:30 73 42 90/57 (68) 91 03/20/20 19:20 69 26 100 03/20/20 19:15 74 50 91/56 (68) 93 03/20/20 19:00 91/56 03/20/20 19:00 26 Mechanical Ventilator 100 03/20/20 19:00 75 53 91/59 (70) 95 03/20/20 18:45 76 51 92/59 (70) 94 03/20/20 18:30 76 51 90/57 (68) 93 03/20/20 18:23 76 49 85/53 (64) 93 03/20/20 18:15 74 34 79/65 (70) 85 03/20/20 18:00 67 26 102/67 (79) 100 03/20/20 18:00 85/53 03/20/20 18:00 26 Mechanical Ventilator 100 03/20/20 17:45 65 26 104/64 (77) 100 03/20/20 17:30 63 26 101/66 (78) 100 03/20/20 17:15 63 26 100/63 (75) 100 03/20/20 17:00 100/63 03/20/20 17:00 26 Mechanical Ventilator 100 03/20/20 17:00 63 26 98/65 (76) 100 03/20/20 16:58 64 26 96 Mechanical Ventilator 100 03/20/20 16:45 64 26 97/62 (74) 99 03/20/20 16:30 64 26 97/61 (73) 97 03/20/20 16:19 26 Mechanical Ventilator 100 03/20/20 16:18 26 Mechanical Ventilator 100 03/20/20 16:15 66 26 93/57 (69) 91 03/20/20 16:05 26 Mechanical Ventilator 100 03/20/20 16:00 Mechanical Ventilator Mechanical Ventilator 03/20/20 16:00 93/57 03/20/20 16:00 26 Mechanical Ventilator 100 03/20/20 16:00 97.7 68 26 97/54 (68) 94 03/20/20 16:00 69 03/20/20 15:55 26 Mechanical Ventilator 100 03/20/20 15:50 26 Mechanical Ventilator 100 03/20/20 15:45 26 Mechanical Ventilator 100 03/20/20 15:45 71 26 96/53 (67) 80 03/20/20 15:40 26 Mechanical Ventilator 100 03/20/20 15:35 26 Mechanical Ventilator 100 03/20/20 15:30 26 Mechanical Ventilator 100 03/20/20 15:30 68 26 41/17 (25) 99 03/20/20 15:25 26 Mechanical Ventilator 100 03/20/20 15:20 26 Mechanical Ventilator 100 03/20/20 15:15 70 26 95/54 (68) 99 03/20/20 15:15 26 Mechanical Ventilator 100 03/20/20 15:10 26 Mechanical Ventilator 100 03/20/20 15:07 64 26 100 03/20/20 15:05 26 Mechanical Ventilator 100 03/20/20 15:00 74 26 91/59 (70) 98 03/20/20 15:00 95/53 03/20/20 15:00 26 Mechanical Ventilator 100 03/20/20 14:45 26 Mechanical Ventilator 100 03/20/20 14:45 76 26 94/55 (68) 100 03/20/20 14:30 76 25 92/56 (68) 100 03/20/20 14:30 25 Mechanical Ventilator 100 03/20/20 14:15 102 23 105/61 (76) 94 03/20/20 14:15 23 Mechanical Ventilator 100 03/20/20 14:00 110/73 03/20/20 14:00 22 Mechanical Ventilator 100 03/20/20 14:00 106 26 123/68 (86) 88 03/20/20 14:00 100 03/20/20 13:54 104 24 119/74 (89) 98 03/20/20 13:45 85 22 112/69 (83) 100 03/20/20 13:45 22 Mechanical Ventilator 100 03/20/20 13:30 23 Mechanical Ventilator 100 03/20/20 13:30 79 23 90/54 (66) 100 03/20/20 13:15 100 18 114/71 (85) 87 03/20/20 13:15 20 Mechanical Ventilator 100 03/20/20 13:00 100 03/20/20 13:00 114/71 03/20/20 13:00 20 Mechanical Ventilator 100 03/20/20 13:00 102 24 125/75 (92) 86 03/20/20 12:45 101 23 139/88 (105) 94 03/20/20 12:45 24 Mechanical Ventilator 100 03/20/20 12:30 99 24 124/75 (91) 83 03/20/20 12:30 23 Mechanical Ventilator 100 03/20/20 12:15 97 22 152/80 (104) 89 03/20/20 12:15 21 Mechanical Ventilator 100 03/20/20 12:00 98.8 93 26 137/100 (112) 93 03/20/20 12:00 82 03/20/20 12:00 100 03/20/20 12:00 152/80 03/20/20 12:00 152/80 03/20/20 12:00 23 Mechanical Ventilator 100 03/20/20 12:00 Mechanical Ventilator Mechanical Ventilator 03/20/20 11:45 89 19 144/93 (110) 94 03/20/20 11:45 24 Mechanical Ventilator 100 03/20/20 11:30 89 19 150/97 (114) 94 03/20/20 11:30 25 Mechanical Ventilator 100 03/20/20 11:15 86 26 156/102 (120) 96 03/20/20 11:15 23 Mechanical Ventilator 100 03/20/20 11:00 112/71 03/20/20 11:00 112/71 03/20/20 11:00 22 Mechanical Ventilator 100 03/20/20 11:00 72 25 153/93 (113) 93 03/20/20 10:45 74 26 162/94 (116) 93 03/20/20 10:34 59 25 100 03/20/20 10:30 57 25 90/63 (72) 95 03/20/20 10:30 90/63 03/20/20 10:15 56 26 123/72 (89) 97 03/20/20 10:00 27 118/69 Mechanical Ventilator 100 03/20/20 10:00 118/69 03/20/20 10:00 27 Mechanical Ventilator 100 03/20/20 10:00 58 28 118/69 (85) 97 Intake and Output 03/20/20 03/21/20 19:00 07:00 Intake Total 1804.44085 ml 1813.00 ml Output Total 910 ml 1060 ml Balance 894.12710 ml 753.00 ml Free Water 20 ml IV Total 1159.68644 ml 1053.00 ml Tube Feeding 445 ml 540 ml Other 180 ml 220 ml Output Urine Total 910 ml 1060 ml Laboratory Tests 03/20/20 15:43: Arterial Blood pH 7.287L, Arterial Blood Partial Pressure CO2 56.5*H, Arterial Blood Partial Pressure O2 76.9, Arterial Blood HCO3 26.4H, Arterial Blood Oxygen Saturation 93.2L, Arterial Blood Base Excess -0.6, Joaquin Test Positive 03/21/20 05:18: White Blood Count 11.2H, Red Blood Count 2.76L, Hemoglobin 9.2L, Hematocrit 27.9L, Mean Corpuscular Volume 101H, Mean Corpuscular Hemoglobin 33.5H, Mean Corpuscular Hemoglobin Concent 33.1, Red Cell Distribution Width 17.3H, Platelet Count 161, Mean Platelet Volume 7.4, Neutrophils (%) (Auto) 79.2H, Lymphocytes (%) (Auto) 5.6L, Monocytes (%) (Auto) 14.4H, Eosinophils (%) (Auto) 0.0, Basophils (%) (Auto) 0.9, Sodium Level 134#L, Potassium Level 4.5, Chloride Level 100, Carbon Dioxide Level 30, Anion Gap 4L, Blood Urea Nitrogen 22H, Creatinine 0.8, Estimat Glomerular Filtration Rate > 60, Glucose Level 191H , Uric Acid 4.5, Calcium Level 8.1L, Phosphorus Level 3.2, Magnesium Level 2.3, Iron Level 126, Total Iron Binding Capacity 138L, Percent Iron Saturation 91H, Unsaturated Iron Binding 12L, Ferritin 1310H, Total Bilirubin 1.6H, Direct Bilirubin 0.8H, Aspartate Amino Transf (AST/SGOT) 66H, Alanine Aminotransferase (ALT/SGPT) 26, Alkaline Phosphatase 122H, C-Reactive Protein, Quantitative 7.5H , Pro-B-Type Natriuretic Peptide 14164Y, Total Protein 8.4H, Albumin 2.4L, Globulin 6.0, Albumin/Globulin Ratio 0.4L, Vitamin B12 Level 1597H, Folate 10.0 Height (Feet): 5 Height (Inches): 1.00 Weight (Pounds): 240 General Appearance: no apparent distress EENT: other - Remains intubated on ventilator Cardiovascular: normal rate Respiratory/Chest: decreased breath sounds Abdomen: soft Extremities: other - Edematous Cristhian Granados MD March 21, 2020 09:55
[2020-03-21] MEDS ORDERED: NaCl 3% 500ml 250 ML IV ONE (11:00)
--- NOTE | 2020-03-21 11:26 | General Progress Note ---
Assessment/Plan Status: progressing, unchanged Assessment/Plan: macrocytic anemia elevated LFTS cirrhosis cellulitis elevated Ammonia levels respiratory distress>>> now failure COVID positive pna NGTF abd us>> reviewed Xifaxan fu stool ob>>>neg s/p one unit PRBC in this admission GI procedures if needed abx per id hepatitis panel>>>>>positive for hep C>>> needs out patient fu poor prognosis given diarrhea will dc lactulose and miralax for now will fu Subjective ROS Limited/Unobtainable: No Allergies: Coded Allergies: No Known Allergies (Unverified , 02/29/20) Objective Last 24 Hour Vital Signs Date Time Temp Pulse Resp B/P (MAP) Pulse Ox O2 Delivery O2 Flow Rate FiO2 03/21/20 10:30 66 25 128/74 (92) 90 03/21/20 10:00 60 26 124/71 (88) 97 03/21/20 09:30 62 26 121/73 (89) 96 03/21/20 09:00 64 26 112/67 (82) 97 03/21/20 08:30 68 26 112/66 (81) 95 03/21/20 08:00 100 03/21/20 08:00 97.4 71 26 114/71 (85) 99 03/21/20 08:00 Mechanical Ventilator Mechanical Ventilator 03/21/20 07:18 69 26 100 03/21/20 07:00 123/70 03/21/20 07:00 26 Mechanical Ventilator 100 03/21/20 07:00 61 26 123/70 (87) 97 03/21/20 06:30 62 26 129/75 (93) 98 03/21/20 06:00 59 26 127/73 (91) 99 03/21/20 06:00 127/73 03/21/20 06:00 26 Mechanical Ventilator 100 03/21/20 05:30 57 26 126/77 (93) 99 03/21/20 05:03 126/76 03/21/20 05:02 28 Mechanical Ventilator 100 03/21/20 05:00 126/76 03/21/20 05:00 28 Mechanical Ventilator 100 03/21/20 05:00 58 26 126/76 (93) 97 03/21/20 04:30 97.6 60 26 118/71 (87) 99 03/21/20 04:00 100 03/21/20 04:00 Mechanical Ventilator Mechanical Ventilator 03/21/20 04:00 109/69 03/21/20 04:00 26 Mechanical Ventilator 100 03/21/20 04:00 66 26 109/69 (82) 95 03/21/20 04:00 62 03/21/20 03:30 63 31 105/64 (78) 99 03/21/20 03:00 64 28 102/61 (75) 98 03/21/20 03:00 102/61 03/21/20 03:00 28 Mechanical Ventilator 100 03/21/20 02:36 81 28 100 03/21/20 02:30 72 28 104/64 (77) 97 03/21/20 02:00 68 27 106/63 (77) 99 03/21/20 02:00 106/63 03/21/20 02:00 27 Mechanical Ventilator 100 03/21/20 01:30 65 27 112/65 (81) 99 03/21/20 01:00 63 32 118/69 (85) 99 03/21/20 01:00 118/69 03/21/20 01:00 32 Mechanical Ventilator 100 03/21/20 00:44 78 26 100 03/21/20 00:30 61 32 120/70 (87) 99 03/21/20 00:00 Mechanical Ventilator Mechanical Ventilator 03/21/20 00:00 63 03/21/20 00:00 125/73 03/21/20 00:00 26 Mechanical Ventilator 100 03/21/20 00:00 97.9 64 26 125/73 (90) 98 03/20/20 23:30 63 28 123/73 (90) 98 03/20/20 23:00 63 26 125/70 (88) 97 03/20/20 23:00 125/70 03/20/20 23:00 26 Mechanical Ventilator 100 03/20/20 22:44 71 27 100 03/20/20 22:30 59 28 120/72 (88) 99 03/20/20 22:17 28 Mechanical Ventilator 100 03/20/20 22:00 110/68 03/20/20 22:00 26 Mechanical Ventilator 100 03/20/20 22:00 59 26 110/68 (82) 99 03/20/20 21:30 62 55 106/65 (79) 99 03/20/20 21:02 68 26 100 03/20/20 21:00 63 50 100/63 (75) 99 03/20/20 21:00 100/63 03/20/20 21:00 26 Mechanical Ventilator 100 03/20/20 20:30 68 48 95/60 (72) 98 03/20/20 20:00 72 03/20/20 20:00 91/61 03/20/20 20:00 28 Mechanical Ventilator 100 03/20/20 20:00 Mechanical Ventilator Mechanical Ventilator 03/20/20 20:00 100 03/20/20 20:00 98.6 72 48 91/61 (71) 86 03/20/20 19:30 73 42 90/57 (68) 91 03/20/20 19:20 69 26 100 03/20/20 19:15 74 50 91/56 (68) 93 03/20/20 19:00 91/56 03/20/20 19:00 26 Mechanical Ventilator 100 03/20/20 19:00 75 53 91/59 (70) 95 03/20/20 18:45 76 51 92/59 (70) 94 03/20/20 18:30 76 51 90/57 (68) 93 03/20/20 18:23 76 49 85/53 (64) 93 03/20/20 18:15 74 34 79/65 (70) 85 03/20/20 18:00 67 26 102/67 (79) 100 03/20/20 18:00 85/53 03/20/20 18:00 26 Mechanical Ventilator 100 03/20/20 17:45 65 26 104/64 (77) 100 03/20/20 17:30 63 26 101/66 (78) 100 03/20/20 17:15 63 26 100/63 (75) 100 03/20/20 17:00 100/63 03/20/20 17:00 26 Mechanical Ventilator 100 03/20/20 17:00 63 26 98/65 (76) 100 03/20/20 16:58 64 26 96 Mechanical Ventilator 100 03/20/20 16:45 64 26 97/62 (74) 99 03/20/20 16:30 64 26 97/61 (73) 97 03/20/20 16:19 26 Mechanical Ventilator 100 03/20/20 16:18 26 Mechanical Ventilator 100 03/20/20 16:15 66 26 93/57 (69) 91 03/20/20 16:05 26 Mechanical Ventilator 100 03/20/20 16:00 Mechanical Ventilator Mechanical Ventilator 03/20/20 16:00 93/57 03/20/20 16:00 26 Mechanical Ventilator 100 03/20/20 16:00 97.7 68 26 97/54 (68) 94 03/20/20 16:00 69 03/20/20 15:55 26 Mechanical Ventilator 100 03/20/20 15:50 26 Mechanical Ventilator 100 03/20/20 15:45 26 Mechanical Ventilator 100 03/20/20 15:45 71 26 96/53 (67) 80 03/20/20 15:40 26 Mechanical Ventilator 100 03/20/20 15:35 26 Mechanical Ventilator 100 03/20/20 15:30 26 Mechanical Ventilator 100 03/20/20 15:30 68 26 41/17 (25) 99 03/20/20 15:25 26 Mechanical Ventilator 100 03/20/20 15:20 26 Mechanical Ventilator 100 03/20/20 15:15 70 26 95/54 (68) 99 03/20/20 15:15 26 Mechanical Ventilator 100 03/20/20 15:10 26 Mechanical Ventilator 100 03/20/20 15:07 64 26 100 03/20/20 15:05 26 Mechanical Ventilator 100 03/20/20 15:00 74 26 91/59 (70) 98 03/20/20 15:00 95/53 03/20/20 15:00 26 Mechanical Ventilator 100 03/20/20 14:45 26 Mechanical Ventilator 100 03/20/20 14:45 76 26 94/55 (68) 100 03/20/20 14:30 76 25 92/56 (68) 100 03/20/20 14:30 25 Mechanical Ventilator 100 03/20/20 14:15 102 23 105/61 (76) 94 03/20/20 14:15 23 Mechanical Ventilator 100 03/20/20 14:00 110/73 03/20/20 14:00 22 Mechanical Ventilator 100 03/20/20 14:00 106 26 123/68 (86) 88 03/20/20 14:00 100 03/20/20 13:54 104 24 119/74 (89) 98 03/20/20 13:45 85 22 112/69 (83) 100 03/20/20 13:45 22 Mechanical Ventilator 100 03/20/20 13:30 23 Mechanical Ventilator 100 03/20/20 13:30 79 23 90/54 (66) 100 03/20/20 13:15 100 18 114/71 (85) 87 03/20/20 13:15 20 Mechanical Ventilator 100 03/20/20 13:00 100 03/20/20 13:00 114/71 03/20/20 13:00 20 Mechanical Ventilator 100 03/20/20 13:00 102 24 125/75 (92) 86 03/20/20 12:45 101 23 139/88 (105) 94 03/20/20 12:45 24 Mechanical Ventilator 100 03/20/20 12:30 99 24 124/75 (91) 83 03/20/20 12:30 23 Mechanical Ventilator 100 03/20/20 12:15 97 22 152/80 (104) 89 03/20/20 12:15 21 Mechanical Ventilator 100 03/20/20 12:00 98.8 93 26 137/100 (112) 93 03/20/20 12:00 82 03/20/20 12:00 100 03/20/20 12:00 152/80 03/20/20 12:00 152/80 03/20/20 12:00 23 Mechanical Ventilator 100 03/20/20 12:00 Mechanical Ventilator Mechanical Ventilator 03/20/20 11:45 89 19 144/93 (110) 94 03/20/20 11:45 24 Mechanical Ventilator 100 03/20/20 11:30 89 19 150/97 (114) 94 03/20/20 11:30 25 Mechanical Ventilator 100 Intake and Output 03/20/20 03/21/20 19:00 07:00 Intake Total 1804.86714 ml 1813.00 ml Output Total 910 ml 1060 ml Balance 894.97436 ml 753.00 ml Free Water 20 ml IV Total 1159.44194 ml 1053.00 ml Tube Feeding 445 ml 540 ml Other 180 ml 220 ml Output Urine Total 910 ml 1060 ml Laboratory Tests 03/20/20 15:43: Arterial Blood pH 7.287L, Arterial Blood Partial Pressure CO2 56.5*H, Arterial Blood Partial Pressure O2 76.9, Arterial Blood HCO3 26.4H, Arterial Blood Oxygen Saturation 93.2L, Arterial Blood Base Excess -0.6, Joaquin Test Positive 03/21/20 05:18: White Blood Count 11.2H, Red Blood Count 2.76L, Hemoglobin 9.2L, Hematocrit 27.9L, Mean Corpuscular Volume 101H, Mean Corpuscular Hemoglobin 33.5H, Mean Corpuscular Hemoglobin Concent 33.1, Red Cell Distribution Width 17.3H, Platelet Count 161, Mean Platelet Volume 7.4, Neutrophils (%) (Auto) 79.2H, Lymphocytes (%) (Auto) 5.6L, Monocytes (%) (Auto) 14.4H, Eosinophils (%) (Auto) 0.0, Basophils (%) (Auto) 0.9, Sodium Level 134#L, Potassium Level 4.5, Chloride Level 100, Carbon Dioxide Level 30, Anion Gap 4L, Blood Urea Nitrogen 22H, Creatinine 0.8, Estimat Glomerular Filtration Rate > 60, Glucose Level 191H , Uric Acid 4.5, Calcium Level 8.1L, Phosphorus Level 3.2, Magnesium Level 2.3, Iron Level 126, Total Iron Binding Capacity 138L, Percent Iron Saturation 91H, Unsaturated Iron Binding 12L, Ferritin 1310H, Total Bilirubin 1.6H, Direct Bilirubin 0.8H, Aspartate Amino Transf (AST/SGOT) 66H, Alanine Aminotransferase (ALT/SGPT) 26, Alkaline Phosphatase 122H, C-Reactive Protein, Quantitative 7.5H , Pro-B-Type Natriuretic Peptide 14383O, Total Protein 8.4H, Albumin 2.4L, Globulin 6.0, Albumin/Globulin Ratio 0.4L, Vitamin B12 Level 1597H, Folate 10.0 Height (Feet): 5 Height (Inches): 1.00 Weight (Pounds): 240 General Appearance: lethargic EENT: normal ENT inspection Neck: supple Cardiovascular: tachycardia Respiratory/Chest: decreased breath sounds Abdomen: soft, hypoactive bowel sounds Extremities: non-tender Tam Spicer MD March 21, 2020 11:26
--- NOTE | 2020-03-21 13:21 | Infectious Diseases Prog Note ---
Assessment/Plan Assessment/Plan IMPRESSION: 1. Bilateral leg cellulitis,Pseudomonas in culture 2. Anemia. 3. Hypoxemic respiratory failure 4. Thrombocytopenia. 5. Homeless 6. Morbid obesity. 7. Cirrhosis 8. COVID19 pneumonia Positive03/07-03/12 9. Hepatitis C 10.septic shock 11. Pneumonia with Stenotrophomonas & Achromobacter RECOMMENDATION: Will f/u COVID19 test Finished Plaquenil & Zithromax course Received a dose of Actemra & Ivermectin Continue Levaquin Subjective ROS Limited/Unobtainable: Yes Constitutional: Denies: fever Cardiovascular: Reports: other - on Levophed Allergies: Coded Allergies: No Known Allergies (Unverified , 02/29/20) Objective Vital Signs Last 24 Hour Vital Signs Date Time Temp Pulse Resp B/P (MAP) Pulse Ox O2 Delivery O2 Flow Rate FiO2 03/21/20 12:30 75 26 123/70 (87) 93 03/21/20 12:22 20 Mechanical Ventilator 100 03/21/20 12:00 76 28 119/72 (88) 93 03/21/20 12:00 100 03/21/20 12:00 Mechanical Ventilator Mechanical Ventilator 03/21/20 12:00 62 03/21/20 11:30 60 28 131/75 (93) 92 03/21/20 11:14 58 28 100 03/21/20 11:00 59 28 118/70 (86) 90 03/21/20 10:30 66 25 128/74 (92) 90 03/21/20 10:00 60 26 124/71 (88) 97 03/21/20 09:30 62 26 121/73 (89) 96 03/21/20 09:00 64 26 112/67 (82) 97 03/21/20 08:30 68 26 112/66 (81) 95 03/21/20 08:00 100 03/21/20 08:00 97.4 71 26 114/71 (85) 99 03/21/20 08:00 Mechanical Ventilator Mechanical Ventilator 03/21/20 08:00 70 03/21/20 07:18 69 26 100 03/21/20 07:00 123/70 03/21/20 07:00 26 Mechanical Ventilator 100 03/21/20 07:00 61 26 123/70 (87) 97 03/21/20 06:30 62 26 129/75 (93) 98 03/21/20 06:00 59 26 127/73 (91) 99 03/21/20 06:00 127/73 03/21/20 06:00 26 Mechanical Ventilator 100 03/21/20 05:30 57 26 126/77 (93) 99 03/21/20 05:03 126/76 03/21/20 05:02 28 Mechanical Ventilator 100 03/21/20 05:00 126/76 03/21/20 05:00 28 Mechanical Ventilator 100 03/21/20 05:00 58 26 126/76 (93) 97 03/21/20 04:30 97.6 60 26 118/71 (87) 99 03/21/20 04:00 100 03/21/20 04:00 Mechanical Ventilator Mechanical Ventilator 03/21/20 04:00 109/69 03/21/20 04:00 26 Mechanical Ventilator 100 03/21/20 04:00 66 26 109/69 (82) 95 03/21/20 04:00 62 03/21/20 03:30 63 31 105/64 (78) 99 03/21/20 03:00 64 28 102/61 (75) 98 03/21/20 03:00 102/61 03/21/20 03:00 28 Mechanical Ventilator 100 03/21/20 02:36 81 28 100 03/21/20 02:30 72 28 104/64 (77) 97 03/21/20 02:00 68 27 106/63 (77) 99 03/21/20 02:00 106/63 03/21/20 02:00 27 Mechanical Ventilator 100 03/21/20 01:30 65 27 112/65 (81) 99 03/21/20 01:00 63 32 118/69 (85) 99 03/21/20 01:00 118/69 03/21/20 01:00 32 Mechanical Ventilator 100 03/21/20 00:44 78 26 100 03/21/20 00:30 61 32 120/70 (87) 99 03/21/20 00:00 Mechanical Ventilator Mechanical Ventilator 03/21/20 00:00 63 03/21/20 00:00 125/73 03/21/20 00:00 26 Mechanical Ventilator 100 03/21/20 00:00 97.9 64 26 125/73 (90) 98 03/20/20 23:30 63 28 123/73 (90) 98 03/20/20 23:00 63 26 125/70 (88) 97 03/20/20 23:00 125/70 03/20/20 23:00 26 Mechanical Ventilator 100 03/20/20 22:44 71 27 100 20 22:30 59 28 120/72 (88) 99 20 22:17 28 Mechanical Ventilator 100 03/20/20 22:00 110/68 03/20/20 22:00 26 Mechanical Ventilator 100 03/20/20 22:00 59 26 110/68 (82) 99 20 21:30 62 55 106/65 (79) 99 03/20/20 21:02 68 26 100 03/20/20 21:00 63 50 100/63 (75) 99 03/20/20 21:00 100/63 03/20/20 21:00 26 Mechanical Ventilator 100 03/20/20 20:30 68 48 95/60 (72) 98 03/20/20 20:00 72 03/20/20 20:00 91/61 03/20/20 20:00 28 Mechanical Ventilator 100 03/20/20 20:00 Mechanical Ventilator Mechanical Ventilator 03/20/20 20:00 100 03/20/20 20:00 98.6 72 48 91/61 (71) 86 03/20/20 19:30 73 42 90/57 (68) 91 03/20/20 19:20 69 26 100 03/20/20 19:15 74 50 91/56 (68) 93 03/20/20 19:00 91/56 03/20/20 19:00 26 Mechanical Ventilator 100 03/20/20 19:00 75 53 91/59 (70) 95 03/20/20 18:45 76 51 92/59 (70) 94 20 18:30 76 51 90/57 (68) 93 03/20/20 18:23 76 49 85/53 (64) 93 03/20/20 18:15 74 34 79/65 (70) 85 20 18:00 67 26 102/67 (79) 100 03/20/20 18:00 85/53 03/20/20 18:00 26 Mechanical Ventilator 100 03/20/20 17:45 65 26 104/64 (77) 100 03/20/20 17:30 63 26 101/66 (78) 100 03/20/20 17:15 63 26 100/63 (75) 100 03/20/20 17:00 100/63 03/20/20 17:00 26 Mechanical Ventilator 100 03/20/20 17:00 63 26 98/65 (76) 100 03/20/20 16:58 64 26 96 Mechanical Ventilator 100 03/20/20 16:45 64 26 97/62 (74) 99 03/20/20 16:30 64 26 97/61 (73) 97 03/20/20 16:19 26 Mechanical Ventilator 100 03/20/20 16:18 26 Mechanical Ventilator 100 03/20/20 16:15 66 26 93/57 (69) 91 03/20/20 16:05 26 Mechanical Ventilator 100 03/20/20 16:00 Mechanical Ventilator Mechanical Ventilator 03/20/20 16:00 93/57 03/20/20 16:00 26 Mechanical Ventilator 100 03/20/20 16:00 97.7 68 26 97/54 (68) 94 03/20/20 16:00 69 03/20/20 15:55 26 Mechanical Ventilator 100 03/20/20 15:50 26 Mechanical Ventilator 100 03/20/20 15:45 26 Mechanical Ventilator 100 03/20/20 15:45 71 26 96/53 (67) 80 03/20/20 15:40 26 Mechanical Ventilator 100 03/20/20 15:35 26 Mechanical Ventilator 100 03/20/20 15:30 26 Mechanical Ventilator 100 03/20/20 15:30 68 26 41/17 (25) 99 03/20/20 15:25 26 Mechanical Ventilator 100 03/20/20 15:20 26 Mechanical Ventilator 100 03/20/20 15:15 70 26 95/54 (68) 99 03/20/20 15:15 26 Mechanical Ventilator 100 03/20/20 15:10 26 Mechanical Ventilator 100 03/20/20 15:07 64 26 100 03/20/20 15:05 26 Mechanical Ventilator 100 03/20/20 15:00 74 26 91/59 (70) 98 03/20/20 15:00 95/53 03/20/20 15:00 26 Mechanical Ventilator 100 03/20/20 14:45 26 Mechanical Ventilator 100 03/20/20 14:45 76 26 94/55 (68) 100 03/20/20 14:30 76 25 92/56 (68) 100 03/20/20 14:30 25 Mechanical Ventilator 100 03/20/20 14:15 102 23 105/61 (76) 94 03/20/20 14:15 23 Mechanical Ventilator 100 03/20/20 14:00 110/73 03/20/20 14:00 22 Mechanical Ventilator 100 03/20/20 14:00 106 26 123/68 (86) 88 03/20/20 14:00 100 03/20/20 13:54 104 24 119/74 (89) 98 03/20/20 13:45 85 22 112/69 (83) 100 03/20/20 13:45 22 Mechanical Ventilator 100 03/20/20 13:30 23 Mechanical Ventilator 100 03/20/20 13:30 79 23 90/54 (66) 100 Height (Feet): 5 Height (Inches): 1.00 Weight (Pounds): 240 HEENT: other - orally intubated Respiratory/Chest: other - on ventilator, WXF9=384% Cardiovascular: normal rate, other - PICC line Abdomen: other - NG tube Extremities: other - peace Laboratory Tests Test 03/20/20 15:43 03/21/20 05:18 Arterial Blood pH 7.287 (7.350-7.450) Arterial Blood Partial Pressure CO2 56.5 mmHg (35.0-45.0) *H Arterial Blood Partial Pressure O2 76.9 mmHg (75.0-100.0) Arterial Blood HCO3 26.4 mmol/L (22.0-26.0) H Arterial Blood Oxygen Saturation 93.2 % (95-100) L Arterial Blood Base Excess -0.6 (-2-2) Joaquin Test Positive White Blood Count 11.2 K/UL (4.8-10.8) H Red Blood Count 2.76 M/UL (4.20-5.40) L Hemoglobin 9.2 G/DL (12.0-16.0) L Hematocrit 27.9 % (37.0-47.0) L Mean Corpuscular Volume 101 FL (80-99) H Mean Corpuscular Hemoglobin 33.5 PG (27.0-31.0) H Mean Corpuscular Hemoglobin Concent 33.1 G/DL (32.0-36.0) Red Cell Distribution Width 17.3 % (11.6-14.8) H Platelet Count 161 K/UL (150-450) Mean Platelet Volume 7.4 FL (6.5-10.1) Neutrophils (%) (Auto) 79.2 % (45.0-75.0) H Lymphocytes (%) (Auto) 5.6 % (20.0-45.0) L Monocytes (%) (Auto) 14.4 % (1.0-10.0) H Eosinophils (%) (Auto) 0.0 % (0.0-3.0) Basophils (%) (Auto) 0.9 % (0.0-2.0) Sodium Level 134 MMOL/L (136-145) #L Potassium Level 4.5 MMOL/L (3.5-5.1) Chloride Level 100 MMOL/L (98-107) Carbon Dioxide Level 30 MMOL/L (21-32) Anion Gap 4 mmol/L (5-15) L Blood Urea Nitrogen 22 mg/dL (7-18) H Creatinine 0.8 MG/DL (0.55-1.30) Estimat Glomerular Filtration Rate > 60 mL/min (>60) Glucose Level 191 MG/DL (74-106) H Uric Acid 4.5 MG/DL (2.6-7.2) Calcium Level 8.1 MG/DL (8.5-10.1) L Phosphorus Level 3.2 MG/DL (2.5-4.9) Magnesium Level 2.3 MG/DL (1.8-2.4) Iron Level 126 ug/dL (50-175) Total Iron Binding Capacity 138 ug/dL (250-450) L Percent Iron Saturation 91 % (15-50) H Unsaturated Iron Binding 12 ug/dL (112-346) L Ferritin 1310 NG/ML (8-388) H Total Bilirubin 1.6 MG/DL (0.2-1.0) H Direct Bilirubin 0.8 MG/DL (0.0-0.3) H Aspartate Amino Transf (AST/SGOT) 66 U/L (15-37) H Alanine Aminotransferase (ALT/SGPT) 26 U/L (12-78) Alkaline Phosphatase 122 U/L (46-116) H C-Reactive Protein, Quantitative 7.5 mg/dL (0.00-0.90) H Pro-B-Type Natriuretic Peptide 95882 pg/mL (0-125) H Total Protein 8.4 G/DL (6.4-8.2) H Albumin 2.4 G/DL (3.4-5.0) L Globulin 6.0 g/dL Albumin/Globulin Ratio 0.4 (1.0-2.7) L Vitamin B12 Level 1597 PG/ML (193-986) H Folate 10.0 NG/ML (8.6-58.9) Current Medications Medications (Trade) Dose Ordered Sig/Dolores Route PRN Reason Start Time Stop Time Status Last Admin Dose Admin Acetaminophen (Tylenol) 650 mg Q4H PRN ORAL Temp >100 03/13/20 14:53 04/12/20 14:52 03/19/20 06:25 Acetaminophen (Tylenol) 650 mg Q4H PRN ORAL Mild Pain (Pain Scale 1-3) 03/13/20 14:53 04/12/20 14:52 03/20/20 04:09 Chlorhexidine Gluconate (Lucretia-Hex 2%) 1 applic DAILY@2000 TOPIC 03/13/20 20:00 06/11/20 19:59 03/20/20 20:16 Dextrose (Dextrose 50%) 25 ml Q30M PRN IV Hypoglycemia 03/16/20 09:30 06/14/20 09:29 Dextrose (Dextrose 50%) 50 ml Q30M PRN IV Hypoglycemia 03/16/20 09:30 06/14/20 09:29 Dopamine HCl/ Dextrose 250 ml @ 0 mls/hr Q24H IV 03/16/20 19:30 06/14/20 19:29 03/20/20 11:00 Enoxaparin Sodium (Lovenox) 40 mg DAILY SUBQ 03/19/20 09:00 04/03/20 08:59 03/21/20 08:55 Fentanyl Citrate 2500 mcg/Sodium Chloride 250 ml @ 0 mls/hr Q24H IV 03/15/20 18:30 03/22/20 18:29 03/21/20 12:22 Insulin Aspart (NovoLOG) Q6HR SUBQ 03/16/20 12:00 06/14/20 11:59 03/21/20 12:17 Levofloxacin (Levaquin) 750 mg DAILY NG 03/20/20 12:00 03/27/20 11:59 03/21/20 08:55 Levothyroxine Sodium (Synthroid) 50 mcg DAILY IV 03/21/20 09:00 04/17/20 11:59 03/21/20 08:54 Methylprednisolone Sodium Succinate (Solu-MEDROL) 50 mg EVERY 12 HOURS IVP 03/20/20 21:00 06/17/20 20:59 03/21/20 08:54 Metoclopramide HCl (Reglan) 10 mg Q6HR IVP 03/21/20 12:00 04/20/20 11:59 03/21/20 11:52 Midodrine (Pro-Amatine) 10 mg THREE TIMES A DAY NG 03/20/20 13:00 06/18/20 12:59 03/21/20 12:18 Mirtazapine (Remeron) 7.5 mg BEDTIME PRN ORAL SLEEP 03/13/20 14:55 06/11/20 14:54 Non-Formulary Medication (Non-Formulary Med) 1 ea DAILY IV 03/18/20 09:00 04/17/20 08:59 UNV Norepinephrine Bitartrate 16 mg/ Dextrose 500 ml @ 0 mls/hr Q24H IV 03/17/20 21:00 04/16/20 13:02 03/21/20 05:03 Propofol 100 ml @ 0 mls/hr Q24H IV 03/19/20 23:30 03/21/20 23:29 03/20/20 06:21 Rifaximin (Xifaxan) 550 mg EVERY 12 HOURS ORAL 03/18/20 09:00 03/25/20 08:59 03/21/20 08:56 Sodium Chloride 250 ml @ 30 mls/hr ONCE ONCE IV 03/21/20 11:00 03/21/20 19:19 03/21/20 11:34 Vasopressin 100 units/Sodium Chloride 100 ml @ 0 mls/hr Q24H PRN IV For hypotension 03/16/20 11:00 04/15/20 10:59 03/19/20 18:03 Jonathon Shah MD March 21, 2020 13:21
--- NOTE | 2020-03-21 16:21 | Surgery Progress Note ---
Surgery Progress Note Subjective Symptoms: worse Additional Comments orsening pep 16 fio2 100 levo / vaso Objective Last 24 Hour Vital Signs Date Time Temp Pulse Resp B/P (MAP) Pulse Ox O2 Delivery O2 Flow Rate FiO2 03/21/20 15:00 56 25 122/74 (90) 96 03/21/20 14:30 61 27 118/69 (85) 65 03/21/20 14:00 62 27 121/70 (87) 96 03/21/20 13:30 68 27 127/70 (89) 98 03/21/20 13:00 69 26 109/67 (81) 96 03/21/20 13:00 109/67 03/21/20 13:00 26 Mechanical Ventilator 100 03/21/20 12:30 75 26 123/70 (87) 93 03/21/20 12:22 20 Mechanical Ventilator 100 03/21/20 12:00 76 28 119/72 (88) 93 03/21/20 12:00 100 03/21/20 12:00 119/72 03/21/20 12:00 26 Mechanical Ventilator 100 03/21/20 12:00 Mechanical Ventilator Mechanical Ventilator 03/21/20 12:00 62 03/21/20 11:45 129/74 03/21/20 11:30 131/75 03/21/20 11:30 60 28 131/75 (93) 92 03/21/20 11:15 133/77 03/21/20 11:14 58 28 100 03/21/20 11:00 59 28 118/70 (86) 90 03/21/20 11:00 118/70 03/21/20 11:00 26 Mechanical Ventilator 100 03/21/20 10:30 66 25 128/74 (92) 90 03/21/20 10:00 60 26 124/71 (88) 97 03/21/20 10:00 150/100 03/21/20 10:00 26 Mechanical Ventilator 100 03/21/20 09:30 62 26 121/73 (89) 96 03/21/20 09:00 64 26 112/67 (82) 97 03/21/20 09:00 118/70 03/21/20 09:00 26 Mechanical Ventilator 100 03/21/20 08:30 68 26 112/66 (81) 95 03/21/20 08:00 100 03/21/20 08:00 97.4 71 26 114/71 (85) 99 03/21/20 08:00 Mechanical Ventilator Mechanical Ventilator 03/21/20 08:00 70 03/21/20 08:00 112/69 03/21/20 08:00 26 Mechanical Ventilator 100 03/21/20 07:18 69 26 100 03/21/20 07:00 123/70 03/21/20 07:00 26 Mechanical Ventilator 100 03/21/20 07:00 61 26 123/70 (87) 97 03/21/20 06:30 62 26 129/75 (93) 98 03/21/20 06:00 59 26 127/73 (91) 99 03/21/20 06:00 127/73 03/21/20 06:00 26 Mechanical Ventilator 100 03/21/20 05:30 57 26 126/77 (93) 99 03/21/20 05:03 126/76 03/21/20 05:02 28 Mechanical Ventilator 100 03/21/20 05:00 126/76 03/21/20 05:00 28 Mechanical Ventilator 100 03/21/20 05:00 58 26 126/76 (93) 97 03/21/20 04:30 97.6 60 26 118/71 (87) 99 03/21/20 04:00 100 03/21/20 04:00 Mechanical Ventilator Mechanical Ventilator 03/21/20 04:00 109/69 03/21/20 04:00 26 Mechanical Ventilator 100 03/21/20 04:00 66 26 109/69 (82) 95 03/21/20 04:00 62 03/21/20 03:30 63 31 105/64 (78) 99 03/21/20 03:00 64 28 102/61 (75) 98 03/21/20 03:00 102/61 03/21/20 03:00 28 Mechanical Ventilator 100 03/21/20 02:36 81 28 100 03/21/20 02:30 72 28 104/64 (77) 97 03/21/20 02:00 68 27 106/63 (77) 99 03/21/20 02:00 106/63 03/21/20 02:00 27 Mechanical Ventilator 100 03/21/20 01:30 65 27 112/65 (81) 99 03/21/20 01:00 63 32 118/69 (85) 99 03/21/20 01:00 118/69 03/21/20 01:00 32 Mechanical Ventilator 100 03/21/20 00:44 78 26 100 03/21/20 00:30 61 32 120/70 (87) 99 03/21/20 00:00 Mechanical Ventilator Mechanical Ventilator 03/21/20 00:00 63 03/21/20 00:00 125/73 03/21/20 00:00 26 Mechanical Ventilator 100 03/21/20 00:00 97.9 64 26 125/73 (90) 98 03/20/20 23:30 63 28 123/73 (90) 98 03/20/20 23:00 63 26 125/70 (88) 97 03/20/20 23:00 125/70 03/20/20 23:00 26 Mechanical Ventilator 100 03/20/20 22:44 71 27 100 03/20/20 22:30 59 28 120/72 (88) 99 03/20/20 22:17 28 Mechanical Ventilator 100 03/20/20 22:00 110/68 03/20/20 22:00 26 Mechanical Ventilator 100 03/20/20 22:00 59 26 110/68 (82) 99 03/20/20 21:30 62 55 106/65 (79) 99 03/20/20 21:02 68 26 100 03/20/20 21:00 63 50 100/63 (75) 99 03/20/20 21:00 100/63 03/20/20 21:00 26 Mechanical Ventilator 100 03/20/20 20:30 68 48 95/60 (72) 98 03/20/20 20:00 72 03/20/20 20:00 91/61 03/20/20 20:00 28 Mechanical Ventilator 100 03/20/20 20:00 Mechanical Ventilator Mechanical Ventilator 03/20/20 20:00 100 03/20/20 20:00 98.6 72 48 91/61 (71) 86 03/20/20 19:30 73 42 90/57 (68) 91 03/20/20 19:20 69 26 100 03/20/20 19:15 74 50 91/56 (68) 93 03/20/20 19:00 91/56 03/20/20 19:00 26 Mechanical Ventilator 100 03/20/20 19:00 75 53 91/59 (70) 95 03/20/20 18:45 76 51 92/59 (70) 94 03/20/20 18:30 76 51 90/57 (68) 93 03/20/20 18:23 76 49 85/53 (64) 93 03/20/20 18:15 74 34 79/65 (70) 85 03/20/20 18:00 67 26 102/67 (79) 100 03/20/20 18:00 85/53 03/20/20 18:00 26 Mechanical Ventilator 100 03/20/20 17:45 65 26 104/64 (77) 100 03/20/20 17:30 63 26 101/66 (78) 100 03/20/20 17:15 63 26 100/63 (75) 100 03/20/20 17:00 100/63 03/20/20 17:00 26 Mechanical Ventilator 100 03/20/20 17:00 63 26 98/65 (76) 100 03/20/20 16:58 64 26 96 Mechanical Ventilator 100 03/20/20 16:45 64 26 97/62 (74) 99 03/20/20 16:30 64 26 97/61 (73) 97 I&O Intake and Output 03/20/20 03/21/20 19:00 07:00 Intake Total 1804.25772 ml 1813.00 ml Output Total 910 ml 1060 ml Balance 894.16906 ml 753.00 ml Free Water 20 ml IV Total 1159.45588 ml 1053.00 ml Tube Feeding 445 ml 540 ml Other 180 ml 220 ml Output Urine Total 910 ml 1060 ml Dressing: other Wound: other Drains: other Cardiovascular: RSR Respiratory: decreased breath sounds Abdomen: soft, non-tender, present bowel sounds Extremities: no cyanosis, other Laboratory Tests Test 03/21/20 05:18 White Blood Count 11.2 K/UL (4.8-10.8) H Red Blood Count 2.76 M/UL (4.20-5.40) L Hemoglobin 9.2 G/DL (12.0-16.0) L Hematocrit 27.9 % (37.0-47.0) L Mean Corpuscular Volume 101 FL (80-99) H Mean Corpuscular Hemoglobin 33.5 PG (27.0-31.0) H Mean Corpuscular Hemoglobin Concent 33.1 G/DL (32.0-36.0) Red Cell Distribution Width 17.3 % (11.6-14.8) H Platelet Count 161 K/UL (150-450) Mean Platelet Volume 7.4 FL (6.5-10.1) Neutrophils (%) (Auto) 79.2 % (45.0-75.0) H Lymphocytes (%) (Auto) 5.6 % (20.0-45.0) L Monocytes (%) (Auto) 14.4 % (1.0-10.0) H Eosinophils (%) (Auto) 0.0 % (0.0-3.0) Basophils (%) (Auto) 0.9 % (0.0-2.0) Sodium Level 134 MMOL/L (136-145) #L Potassium Level 4.5 MMOL/L (3.5-5.1) Chloride Level 100 MMOL/L (98-107) Carbon Dioxide Level 30 MMOL/L (21-32) Anion Gap 4 mmol/L (5-15) L Blood Urea Nitrogen 22 mg/dL (7-18) H Creatinine 0.8 MG/DL (0.55-1.30) Estimat Glomerular Filtration Rate > 60 mL/min (>60) Glucose Level 191 MG/DL (74-106) H Uric Acid 4.5 MG/DL (2.6-7.2) Calcium Level 8.1 MG/DL (8.5-10.1) L Phosphorus Level 3.2 MG/DL (2.5-4.9) Magnesium Level 2.3 MG/DL (1.8-2.4) Iron Level 126 ug/dL (50-175) Total Iron Binding Capacity 138 ug/dL (250-450) L Percent Iron Saturation 91 % (15-50) H Unsaturated Iron Binding 12 ug/dL (112-346) L Ferritin 1310 NG/ML (8-388) H Total Bilirubin 1.6 MG/DL (0.2-1.0) H Direct Bilirubin 0.8 MG/DL (0.0-0.3) H Aspartate Amino Transf (AST/SGOT) 66 U/L (15-37) H Alanine Aminotransferase (ALT/SGPT) 26 U/L (12-78) Alkaline Phosphatase 122 U/L (46-116) H C-Reactive Protein, Quantitative 7.5 mg/dL (0.00-0.90) H Pro-B-Type Natriuretic Peptide 49347 pg/mL (0-125) H Total Protein 8.4 G/DL (6.4-8.2) H Albumin 2.4 G/DL (3.4-5.0) L Globulin 6.0 g/dL Albumin/Globulin Ratio 0.4 (1.0-2.7) L Vitamin B12 Level 1597 PG/ML (193-986) H Folate 10.0 NG/ML (8.6-58.9) Plan Problems: (1) Cellulitis Assessment & Plan: bilateral lower extremity cellulitis / edema chronic venous status changes dermatitis no abscess no purulent drainage ulcerations forming. keep lower extremity elevated while in bed apply skin protectant / moisturizing cream daily okay to shower okay to wrap soft after cream abx as per ID for cellulitis okay for diet duplex ordered trend labs will follow with recs thank you No evidence of deep venous thrombosis involving the visualized veins of the RIGHT lower extremity. refused eval of left COVID ++ cxr noted cont current supportive care improving labs stable improving slowly wean pressors as tolerated Patient is acutely worsened intubated on vent support 2 pressors now worsening labs worsening Prognosis is guarded we will continue with maximal support efforts (2) COVID-19 Assessment & Plan: see above Theron Sotomayor March 21, 2020 16:21
--- NOTE | 2020-03-21 16:52 | General Progress Note ---
Assessment/Plan Problem List: (1) Cellulitis ICD Codes: L03.90 - Cellulitis, unspecified SNOMED: [id number] Qualifiers: Qualified Codes: L03.119 - Cellulitis of unspecified part of limb Status: progressing, unchanged Assessment/Plan: consulted dr hall for rx of elevated ammonia hyponatramia is getting worse.treatment per dr valera elevated tsh pna sepsis anemia cirrhosis reviewed chart and labs Subjective ROS Limited/Unobtainable: Yes Allergies: Coded Allergies: No Known Allergies (Unverified , 02/29/20) Objective Last 24 Hour Vital Signs Date Time Temp Pulse Resp B/P (MAP) Pulse Ox O2 Delivery O2 Flow Rate FiO2 03/21/20 16:00 62 03/21/20 16:00 132/70 03/21/20 16:00 26 Mechanical Ventilator 100 03/21/20 15:00 56 25 122/74 (90) 96 03/21/20 15:00 122/74 03/21/20 15:00 26 Mechanical Ventilator 100 03/21/20 14:30 61 27 118/69 (85) 65 03/21/20 14:00 62 27 121/70 (87) 96 03/21/20 14:00 121/70 03/21/20 14:00 26 Mechanical Ventilator 100 03/21/20 13:30 68 27 127/70 (89) 98 03/21/20 13:00 69 26 109/67 (81) 96 03/21/20 13:00 109/67 03/21/20 13:00 26 Mechanical Ventilator 100 03/21/20 12:30 75 26 123/70 (87) 93 03/21/20 12:22 20 Mechanical Ventilator 100 03/21/20 12:00 76 28 119/72 (88) 93 03/21/20 12:00 100 03/21/20 12:00 119/72 03/21/20 12:00 26 Mechanical Ventilator 100 03/21/20 12:00 Mechanical Ventilator Mechanical Ventilator 03/21/20 12:00 62 03/21/20 11:45 129/74 03/21/20 11:30 131/75 03/21/20 11:30 60 28 131/75 (93) 92 03/21/20 11:15 133/77 03/21/20 11:14 58 28 100 5/5/20 11:00 59 28 118/70 (86) 90 03/21/20 11:00 118/70 03/21/20 11:00 26 Mechanical Ventilator 100 03/21/20 10:30 66 25 128/74 (92) 90 03/21/20 10:00 60 26 124/71 (88) 97 03/21/20 10:00 150/100 03/21/20 10:00 26 Mechanical Ventilator 100 03/21/20 09:30 62 26 121/73 (89) 96 03/21/20 09:00 64 26 112/67 (82) 97 03/21/20 09:00 118/70 03/21/20 09:00 26 Mechanical Ventilator 100 03/21/20 08:30 68 26 112/66 (81) 95 03/21/20 08:00 100 03/21/20 08:00 97.4 71 26 114/71 (85) 99 03/21/20 08:00 Mechanical Ventilator Mechanical Ventilator 03/21/20 08:00 70 03/21/20 08:00 112/69 03/21/20 08:00 26 Mechanical Ventilator 100 03/21/20 07:18 69 26 100 03/21/20 07:00 123/70 03/21/20 07:00 26 Mechanical Ventilator 100 03/21/20 07:00 61 26 123/70 (87) 97 03/21/20 06:30 62 26 129/75 (93) 98 03/21/20 06:00 59 26 127/73 (91) 99 03/21/20 06:00 127/73 03/21/20 06:00 26 Mechanical Ventilator 100 03/21/20 05:30 57 26 126/77 (93) 99 03/21/20 05:03 126/76 03/21/20 05:02 28 Mechanical Ventilator 100 03/21/20 05:00 126/76 03/21/20 05:00 28 Mechanical Ventilator 100 03/21/20 05:00 58 26 126/76 (93) 97 03/21/20 04:30 97.6 60 26 118/71 (87) 99 03/21/20 04:00 100 03/21/20 04:00 Mechanical Ventilator Mechanical Ventilator 03/21/20 04:00 109/69 03/21/20 04:00 26 Mechanical Ventilator 100 03/21/20 04:00 66 26 109/69 (82) 95 03/21/20 04:00 62 03/21/20 03:30 63 31 105/64 (78) 99 03/21/20 03:00 64 28 102/61 (75) 98 03/21/20 03:00 102/61 03/21/20 03:00 28 Mechanical Ventilator 100 03/21/20 02:36 81 28 100 03/21/20 02:30 72 28 104/64 (77) 97 03/21/20 02:00 68 27 106/63 (77) 99 03/21/20 02:00 106/63 03/21/20 02:00 27 Mechanical Ventilator 100 03/21/20 01:30 65 27 112/65 (81) 99 03/21/20 01:00 63 32 118/69 (85) 99 03/21/20 01:00 118/69 03/21/20 01:00 32 Mechanical Ventilator 100 03/21/20 00:44 78 26 100 03/21/20 00:30 61 32 120/70 (87) 99 03/21/20 00:00 Mechanical Ventilator Mechanical Ventilator 03/21/20 00:00 63 03/21/20 00:00 125/73 03/21/20 00:00 26 Mechanical Ventilator 100 03/21/20 00:00 97.9 64 26 125/73 (90) 98 03/20/20 23:30 63 28 123/73 (90) 98 03/20/20 23:00 63 26 125/70 (88) 97 03/20/20 23:00 125/70 03/20/20 23:00 26 Mechanical Ventilator 100 03/20/20 22:44 71 27 100 03/20/20 22:30 59 28 120/72 (88) 99 03/20/20 22:17 28 Mechanical Ventilator 100 03/20/20 22:00 110/68 03/20/20 22:00 26 Mechanical Ventilator 100 03/20/20 22:00 59 26 110/68 (82) 99 03/20/20 21:30 62 55 106/65 (79) 99 03/20/20 21:02 68 26 100 03/20/20 21:00 63 50 100/63 (75) 99 03/20/20 21:00 100/63 03/20/20 21:00 26 Mechanical Ventilator 100 03/20/20 20:30 68 48 95/60 (72) 98 03/20/20 20:00 72 03/20/20 20:00 91/61 03/20/20 20:00 28 Mechanical Ventilator 100 03/20/20 20:00 Mechanical Ventilator Mechanical Ventilator 03/20/20 20:00 100 03/20/20 20:00 98.6 72 48 91/61 (71) 86 03/20/20 19:30 73 42 90/57 (68) 91 03/20/20 19:20 69 26 100 03/20/20 19:15 74 50 91/56 (68) 93 03/20/20 19:00 91/56 03/20/20 19:00 26 Mechanical Ventilator 100 03/20/20 19:00 75 53 91/59 (70) 95 03/20/20 18:45 76 51 92/59 (70) 94 03/20/20 18:30 76 51 90/57 (68) 93 03/20/20 18:23 76 49 85/53 (64) 93 03/20/20 18:15 74 34 79/65 (70) 85 03/20/20 18:00 67 26 102/67 (79) 100 03/20/20 18:00 85/53 03/20/20 18:00 26 Mechanical Ventilator 100 03/20/20 17:45 65 26 104/64 (77) 100 03/20/20 17:30 63 26 101/66 (78) 100 03/20/20 17:15 63 26 100/63 (75) 100 03/20/20 17:00 100/63 03/20/20 17:00 26 Mechanical Ventilator 100 03/20/20 17:00 63 26 98/65 (76) 100 03/20/20 16:58 64 26 96 Mechanical Ventilator 100 Intake and Output 03/20/20 03/21/20 19:00 07:00 Intake Total 1804.01882 ml 1813.00 ml Output Total 910 ml 1060 ml Balance 894.23924 ml 753.00 ml Free Water 20 ml IV Total 1159.53033 ml 1053.00 ml Tube Feeding 445 ml 540 ml Other 180 ml 220 ml Output Urine Total 910 ml 1060 ml Laboratory Tests 03/21/20 05:18: White Blood Count 11.2H, Red Blood Count 2.76L, Hemoglobin 9.2L, Hematocrit 27.9L, Mean Corpuscular Volume 101H, Mean Corpuscular Hemoglobin 33.5H, Mean Corpuscular Hemoglobin Concent 33.1, Red Cell Distribution Width 17.3H, Platelet Count 161, Mean Platelet Volume 7.4, Neutrophils (%) (Auto) 79.2H, Lymphocytes (%) (Auto) 5.6L, Monocytes (%) (Auto) 14.4H, Eosinophils (%) (Auto) 0.0, Basophils (%) (Auto) 0.9, Sodium Level 134#L, Potassium Level 4.5, Chloride Level 100, Carbon Dioxide Level 30, Anion Gap 4L, Blood Urea Nitrogen 22H, Creatinine 0.8, Estimat Glomerular Filtration Rate > 60, Glucose Level 191H , Uric Acid 4.5, Calcium Level 8.1L, Phosphorus Level 3.2, Magnesium Level 2.3, Iron Level 126, Total Iron Binding Capacity 138L, Percent Iron Saturation 91H, Unsaturated Iron Binding 12L, Ferritin 1310H, Total Bilirubin 1.6H, Direct Bilirubin 0.8H, Aspartate Amino Transf (AST/SGOT) 66H, Alanine Aminotransferase (ALT/SGPT) 26, Alkaline Phosphatase 122H, C-Reactive Protein, Quantitative 7.5H , Pro-B-Type Natriuretic Peptide 09335R, Total Protein 8.4H, Albumin 2.4L, Globulin 6.0, Albumin/Globulin Ratio 0.4L, Vitamin B12 Level 1597H, Folate 10.0 Height (Feet): 5 Height (Inches): 1.00 Weight (Pounds): 240 Celso Moreno MD March 21, 2020 16:52
[2020-03-21] MEDS: DOPamine 400mg/250ml 250 ML IV SCH ×2 (19:30→21:00)
[2020-03-21] MEDS: Dyna-Hex 2% Top Sol 2oz TOPIC SCH (19:54)
--- NOTE | 2020-03-21 23:45 | Cardiology Progress Note ---
Assessment/Plan Assessment/Plan 1. Acute respiratory failure with hypoxic hypercapnea due to bilateral PNA caused by COVID-19 infection. 2. Septic shock on dopamine gtt only, off vasopressin and levophed drips, keep MAP at 65 mmHg and above. Normal LV function with LVEF at 60%. 3. Hyponatremia, serum Na almost normal limits, continue lasix. 4. Bilateral lower extremity cellulitis with Pseudomonas aeruginosa in culture. 5. Pancytopenia, most likely due to hepatitis C virus infection/liver cirrhosis. Subjective Subjective Sinus rhythm at rate of 67. Objective Last 24 Hour Vital Signs Date Time Temp Pulse Resp B/P (MAP) Pulse Ox O2 Delivery O2 Flow Rate FiO2 03/21/20 23:02 67 28 100 03/21/20 23:00 67 29 150/88 (108) 99 03/21/20 22:30 73 26 136/90 (105) 100 03/21/20 22:00 75 25 163/88 (113) 99 03/21/20 21:30 70 33 168/87 (114) 99 03/21/20 21:00 150/88 03/21/20 21:00 120/68 03/21/20 21:00 150/88 03/21/20 21:00 54 24 110/64 (79) 100 03/21/20 20:45 58 32 110/74 (86) 99 03/21/20 20:30 66 29 104/63 (77) 88 03/21/20 20:00 100 03/21/20 20:00 Mechanical Ventilator Mechanical Ventilator 03/21/20 20:00 49 03/21/20 20:00 100/58 03/21/20 20:00 98.5 58 27 122/74 (90) 98 03/21/20 19:30 120/68 03/21/20 19:30 59 28 121/65 (83) 98 03/21/20 19:00 67 25 120/68 (85) 97 03/21/20 19:00 109/61 03/21/20 18:59 61 26 100 03/21/20 18:44 26 Mechanical Ventilator 100 03/21/20 18:43 26 Mechanical Ventilator 100 03/21/20 18:00 58 26 111/62 (78) 98 03/21/20 18:00 122/69 03/21/20 18:00 26 Mechanical Ventilator 100 03/21/20 17:30 61 27 129/70 (89) 98 03/21/20 17:00 60 27 131/75 (93) 95 03/21/20 17:00 131/75 03/21/20 17:00 26 Mechanical Ventilator 100 03/21/20 16:30 61 28 138/73 (94) 99 03/21/20 16:00 Mechanical Ventilator Mechanical Ventilator 03/21/20 16:00 62 03/21/20 16:00 100 03/21/20 16:00 57 26 132/70 (90) 99 03/21/20 16:00 132/70 03/21/20 16:00 26 Mechanical Ventilator 100 03/21/20 15:30 59 28 138/80 (99) 96 03/21/20 15:09 58 26 100 03/21/20 15:00 56 25 122/74 (90) 96 03/21/20 15:00 122/74 03/21/20 15:00 26 Mechanical Ventilator 100 03/21/20 14:30 61 27 118/69 (85) 65 03/21/20 14:00 62 27 121/70 (87) 96 03/21/20 14:00 121/70 03/21/20 14:00 26 Mechanical Ventilator 100 03/21/20 13:30 68 27 127/70 (89) 98 03/21/20 13:00 69 26 109/67 (81) 96 03/21/20 13:00 109/67 03/21/20 13:00 26 Mechanical Ventilator 100 03/21/20 12:30 75 26 123/70 (87) 93 03/21/20 12:22 20 Mechanical Ventilator 100 03/21/20 12:00 76 28 119/72 (88) 93 03/21/20 12:00 100 03/21/20 12:00 119/72 03/21/20 12:00 26 Mechanical Ventilator 100 03/21/20 12:00 Mechanical Ventilator Mechanical Ventilator 03/21/20 12:00 62 03/21/20 11:45 129/74 03/21/20 11:30 131/75 03/21/20 11:30 60 28 131/75 (93) 92 03/21/20 11:15 133/77 03/21/20 11:14 58 28 100 03/21/20 11:00 59 28 118/70 (86) 90 03/21/20 11:00 118/70 03/21/20 11:00 26 Mechanical Ventilator 100 03/21/20 10:30 66 25 128/74 (92) 90 03/21/20 10:00 60 26 124/71 (88) 97 03/21/20 10:00 150/100 03/21/20 10:00 26 Mechanical Ventilator 100 03/21/20 09:30 62 26 121/73 (89) 96 03/21/20 09:00 64 26 112/67 (82) 97 03/21/20 09:00 118/70 03/21/20 09:00 26 Mechanical Ventilator 100 03/21/20 08:30 68 26 112/66 (81) 95 03/21/20 08:00 100 03/21/20 08:00 97.4 71 26 114/71 (85) 99 03/21/20 08:00 Mechanical Ventilator Mechanical Ventilator 03/21/20 08:00 70 03/21/20 08:00 112/69 03/21/20 08:00 26 Mechanical Ventilator 100 03/21/20 07:18 69 26 100 03/21/20 07:00 123/70 03/21/20 07:00 26 Mechanical Ventilator 100 03/21/20 07:00 61 26 123/70 (87) 97 03/21/20 06:30 62 26 129/75 (93) 98 03/21/20 06:00 59 26 127/73 (91) 99 03/21/20 06:00 127/73 03/21/20 06:00 26 Mechanical Ventilator 100 03/21/20 05:30 57 26 126/77 (93) 99 03/21/20 05:03 126/76 03/21/20 05:02 28 Mechanical Ventilator 100 03/21/20 05:00 126/76 03/21/20 05:00 28 Mechanical Ventilator 100 03/21/20 05:00 58 26 126/76 (93) 97 03/21/20 04:30 97.6 60 26 118/71 (87) 99 03/21/20 04:00 100 03/21/20 04:00 Mechanical Ventilator Mechanical Ventilator 03/21/20 04:00 109/69 03/21/20 04:00 26 Mechanical Ventilator 100 03/21/20 04:00 66 26 109/69 (82) 95 03/21/20 04:00 62 03/21/20 03:30 63 31 105/64 (78) 99 03/21/20 03:00 64 28 102/61 (75) 98 03/21/20 03:00 102/61 03/21/20 03:00 28 Mechanical Ventilator 100 03/21/20 02:36 81 28 100 03/21/20 02:30 72 28 104/64 (77) 97 03/21/20 02:00 68 27 106/63 (77) 99 03/21/20 02:00 106/63 03/21/20 02:00 27 Mechanical Ventilator 100 03/21/20 01:30 65 27 112/65 (81) 99 03/21/20 01:00 63 32 118/69 (85) 99 03/21/20 01:00 118/69 03/21/20 01:00 32 Mechanical Ventilator 100 03/21/20 00:44 78 26 100 03/21/20 00:30 61 32 120/70 (87) 99 03/21/20 00:00 Mechanical Ventilator Mechanical Ventilator 03/21/20 00:00 63 03/21/20 00:00 125/73 03/21/20 00:00 26 Mechanical Ventilator 100 03/21/20 00:00 97.9 64 26 125/73 (90) 98 Intake and Output 03/20/20 03/21/20 19:00 07:00 Intake Total 1804.90442 ml 1813.00 ml Output Total 910 ml 1060 ml Balance 894.84437 ml 753.00 ml Free Water 20 ml IV Total 1159.32012 ml 1053.00 ml Tube Feeding 445 ml 540 ml Other 180 ml 220 ml Output Urine Total 910 ml 1060 ml 2D Echo: LVEF 60%, Mild LVH, Mild LAE, RVSP 44 mmHg, Mild MR, Normal LV Diast. Fxn Laboratory Tests Test 03/21/20 05:18 03/21/20 21:30 White Blood Count 11.2 K/UL (4.8-10.8) H Red Blood Count 2.76 M/UL (4.20-5.40) L Hemoglobin 9.2 G/DL (12.0-16.0) L Hematocrit 27.9 % (37.0-47.0) L Mean Corpuscular Volume 101 FL (80-99) H Mean Corpuscular Hemoglobin 33.5 PG (27.0-31.0) H Mean Corpuscular Hemoglobin Concent 33.1 G/DL (32.0-36.0) Red Cell Distribution Width 17.3 % (11.6-14.8) H Platelet Count 161 K/UL (150-450) Mean Platelet Volume 7.4 FL (6.5-10.1) Neutrophils (%) (Auto) 79.2 % (45.0-75.0) H Lymphocytes (%) (Auto) 5.6 % (20.0-45.0) L Monocytes (%) (Auto) 14.4 % (1.0-10.0) H Eosinophils (%) (Auto) 0.0 % (0.0-3.0) Basophils (%) (Auto) 0.9 % (0.0-2.0) Sodium Level 134 MMOL/L (136-145) #L Potassium Level 4.5 MMOL/L (3.5-5.1) Chloride Level 100 MMOL/L (98-107) Carbon Dioxide Level 30 MMOL/L (21-32) Anion Gap 4 mmol/L (5-15) L Blood Urea Nitrogen 22 mg/dL (7-18) H Creatinine 0.8 MG/DL (0.55-1.30) Estimat Glomerular Filtration Rate > 60 mL/min (>60) Glucose Level 191 MG/DL (74-106) H Uric Acid 4.5 MG/DL (2.6-7.2) Calcium Level 8.1 MG/DL (8.5-10.1) L Phosphorus Level 3.2 MG/DL (2.5-4.9) Magnesium Level 2.3 MG/DL (1.8-2.4) Iron Level 126 ug/dL (50-175) Total Iron Binding Capacity 138 ug/dL (250-450) L Percent Iron Saturation 91 % (15-50) H Unsaturated Iron Binding 12 ug/dL (112-346) L Ferritin 1310 NG/ML (8-388) H Total Bilirubin 1.6 MG/DL (0.2-1.0) H Direct Bilirubin 0.8 MG/DL (0.0-0.3) H Aspartate Amino Transf (AST/SGOT) 66 U/L (15-37) H Alanine Aminotransferase (ALT/SGPT) 26 U/L (12-78) Alkaline Phosphatase 122 U/L (46-116) H C-Reactive Protein, Quantitative 7.5 mg/dL (0.00-0.90) H Pro-B-Type Natriuretic Peptide 74780 pg/mL (0-125) H Total Protein 8.4 G/DL (6.4-8.2) H Albumin 2.4 G/DL (3.4-5.0) L Globulin 6.0 g/dL Albumin/Globulin Ratio 0.4 (1.0-2.7) L Vitamin B12 Level 1597 PG/ML (193-986) H Folate 10.0 NG/ML (8.6-58.9) Arterial Blood pH 7.325 (7.350-7.450) Arterial Blood Partial Pressure CO2 58.3 mmHg (35.0-45.0) *H Arterial Blood Partial Pressure O2 148.4 mmHg (75.0-100.0) H Arterial Blood HCO3 29.7 mmol/L (22.0-26.0) H Arterial Blood Oxygen Saturation 98.6 % (95-100) Arterial Blood Base Excess 2.7 (-2-2) H Joaquin Test Positive Objective HEENT: Atraumatic and normocephalic. Anicteric. Intubated. NECK: JVP cannot be assessed. No carotid bruit. + ETT. CARDIOVASCULAR: Normal S1, S2. Regular rate and rhythm. No murmurs, gallops, or rubs. PMI is at fourth intercostal space at left midclavicular line. LUNGS: Bibasilar crackles. ABDOMEN: Soft, nontender, and nondistended. No hepatosplenomegaly. Positive bowel sounds. EXTREMITIES: A 2+ edema bilaterally associated with erythema with blistering and crust formation of both feet. Berto Gonzalez MD March 21, 2020 23:45
--- NOTE | 2020-03-21 23:57 | Pulmonolgy Critical Care Note ---
Critical Care - Asmt/Plan Assessment/Plan: Pulmonary CCM Progress Note HPI Patient is a 59 year old woman with significant obesity, admitted with bilateral lower extremity cellulitis, had complained of increased swelling and redness to both of her feet and legs Had elevated BNP on admission, persistent edema since admission, worsening hypoxia, LE DVT (right) negative for DVT. Patient had previous hospitalizations for cellulitis, PMH Hypothyroidism, Obesity, Cirrhosis, Anemia, Anxiety, Cellulitis COVID 19 positive, Pneumonia VQ no significant perfusion abnormality, prev LE dupplex negative High D Dimer level, on Lovenox PPX Being diuresed, persistent infiltrates on CXR, on ACVC, no tolerating Proning Some improvement in PaO2/FIO2, VC settings adjusted,, P 16 Hyponatremia improving, renal following Hypothyroidism Awaiting Remdasovir, [facility] - Remdesavir requested for when available, [facility] - not available as yet Received IL6 inhibitor inititial dose (4mg/Kg - all that was available), subsequent dose pending, d/w Pharmacy, on steroids - being weaned Allergies: No Known Allergies Past Medical History: Obesity, Cirrhosis, Anemia, Anxiety, Cellulitis, Hypothyroidism All Other Systems: negative except mentioned in HPI Physical Exam Vital Signs Noted General Appearance: Obese, Sedated,intubated Head: normocephalic, atraumatic Eyes: bilateral eye PERRL, bilateral eye EOMI ENT: EOM grossly intact, moist MM, no LN Respiratory: Bilateral crackles, bilateral rhonchi Cardiovascular: regular rate, rhythm, HS1, HS2 RRR Gastrointestinal: Obese, soft non tender, ND Musculoskeletal: Mild to moderate edema and erythema bilateral lower extremity , patient also has crusting on both feet, Neurologic: sedated, no focalsigns Impression: Covid Pneumonia, s/p IL6 inhibitor, sp Hydroxychloroquine, Ivermectin Significant hypoxia, PaO2 >60 100%, elevated PCO2 Bilateral Lower Extremity Cellulitis Elevated NPA, severe bilateral edema Cirrhosis Splenomegaly Anemia Anxiety Hyponatremia Hypothyroidism Plan IV Antibiotics per ID On trial of steroids, on IL6 inhibitor Diurese as tolerated, note persistently elevated BNP Surgery following for wounds Hematology following for anemia, observing for Neutropenia/thrombocytopenia Diurese PRN Renal following for hyponatremia Endocrine following for Hypothyroidism, on ISS Monitor labs Bronchodilators PPX - Lovenox Echocardiogram once Covid negative AC PC Proning PRN 3% saline PRN per renal PRN Supplement electrolytes PRN Albuterol PRN MDI 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 MOLDER Medications Previously Patients daughter Tri - discussed grave prognosis, suggested DNAR - will consider [facility] - Remdesavir ordered, awaiting supply, awaiting next dose on IL6 inhibitor once supply available Labs Noted Chest X-Ray: Cardiomegaly, left lower lobe atelectasis versus effusion, worsening infiltrates/congestion Subjective ROS Limited/Unobtainable: No Constitutional: Reports: no symptoms Gastrointestinal/Abdominal: Reports: no symptoms Musculoskeletal: Reports: other - SOB Allergies: Coded Allergies: No Known Allergies (Unverified , 02/29/20) ICU time 50 minutes Critical Care - Objective Last 24 Hour Vital Signs Date Time Temp Pulse Resp B/P (MAP) Pulse Ox O2 Delivery O2 Flow Rate FiO2 03/21/20 23:02 67 28 100 03/21/20 23:00 67 29 150/88 (108) 99 03/21/20 22:30 73 26 136/90 (105) 100 03/21/20 22:00 75 25 163/88 (113) 99 03/21/20 21:30 70 33 168/87 (114) 99 03/21/20 21:00 150/88 03/21/20 21:00 120/68 03/21/20 21:00 150/88 03/21/20 21:00 54 24 110/64 (79) 100 03/21/20 20:45 58 32 110/74 (86) 99 03/21/20 20:30 66 29 104/63 (77) 88 03/21/20 20:00 100 03/21/20 20:00 Mechanical Ventilator Mechanical Ventilator 03/21/20 20:00 49 03/21/20 20:00 100/58 03/21/20 20:00 98.5 58 27 122/74 (90) 98 03/21/20 19:30 120/68 03/21/20 19:30 59 28 121/65 (83) 98 03/21/20 19:00 67 25 120/68 (85) 97 03/21/20 19:00 109/61 03/21/20 18:59 61 26 100 03/21/20 18:44 26 Mechanical Ventilator 100 03/21/20 18:43 26 Mechanical Ventilator 100 03/21/20 18:00 58 26 111/62 (78) 98 03/21/20 18:00 122/69 03/21/20 18:00 26 Mechanical Ventilator 100 03/21/20 17:30 61 27 129/70 (89) 98 03/21/20 17:00 60 27 131/75 (93) 95 03/21/20 17:00 131/75 03/21/20 17:00 26 Mechanical Ventilator 100 03/21/20 16:30 61 28 138/73 (94) 99 03/21/20 16:00 Mechanical Ventilator Mechanical Ventilator 03/21/20 16:00 62 03/21/20 16:00 100 03/21/20 16:00 57 26 132/70 (90) 99 03/21/20 16:00 132/70 03/21/20 16:00 26 Mechanical Ventilator 100 03/21/20 15:30 59 28 138/80 (99) 96 03/21/20 15:09 58 26 100 03/21/20 15:00 56 25 122/74 (90) 96 03/21/20 15:00 122/74 03/21/20 15:00 26 Mechanical Ventilator 100 03/21/20 14:30 61 27 118/69 (85) 65 03/21/20 14:00 62 27 121/70 (87) 96 03/21/20 14:00 121/70 03/21/20 14:00 26 Mechanical Ventilator 100 03/21/20 13:30 68 27 127/70 (89) 98 03/21/20 13:00 69 26 109/67 (81) 96 03/21/20 13:00 109/67 03/21/20 13:00 26 Mechanical Ventilator 100 03/21/20 12:30 75 26 123/70 (87) 93 03/21/20 12:22 20 Mechanical Ventilator 100 03/21/20 12:00 76 28 119/72 (88) 93 03/21/20 12:00 100 03/21/20 12:00 119/72 03/21/20 12:00 26 Mechanical Ventilator 100 03/21/20 12:00 Mechanical Ventilator Mechanical Ventilator 03/21/20 12:00 62 03/21/20 11:45 129/74 03/21/20 11:30 131/75 03/21/20 11:30 60 28 131/75 (93) 92 03/21/20 11:15 133/77 03/21/20 11:14 58 28 100 03/21/20 11:00 59 28 118/70 (86) 90 03/21/20 11:00 118/70 03/21/20 11:00 26 Mechanical Ventilator 100 03/21/20 10:30 66 25 128/74 (92) 90 03/21/20 10:00 60 26 124/71 (88) 97 03/21/20 10:00 150/100 03/21/20 10:00 26 Mechanical Ventilator 100 03/21/20 09:30 62 26 121/73 (89) 96 03/21/20 09:00 64 26 112/67 (82) 97 03/21/20 09:00 118/70 03/21/20 09:00 26 Mechanical Ventilator 100 03/21/20 08:30 68 26 112/66 (81) 95 03/21/20 08:00 100 03/21/20 08:00 97.4 71 26 114/71 (85) 99 03/21/20 08:00 Mechanical Ventilator Mechanical Ventilator 03/21/20 08:00 70 03/21/20 08:00 112/69 03/21/20 08:00 26 Mechanical Ventilator 100 03/21/20 07:18 69 26 100 03/21/20 07:00 123/70 03/21/20 07:00 26 Mechanical Ventilator 100 03/21/20 07:00 61 26 123/70 (87) 97 03/21/20 06:30 62 26 129/75 (93) 98 03/21/20 06:00 59 26 127/73 (91) 99 03/21/20 06:00 127/73 03/21/20 06:00 26 Mechanical Ventilator 100 03/21/20 05:30 57 26 126/77 (93) 99 03/21/20 05:03 126/76 03/21/20 05:02 28 Mechanical Ventilator 100 03/21/20 05:00 126/76 03/21/20 05:00 28 Mechanical Ventilator 100 03/21/20 05:00 58 26 126/76 (93) 97 03/21/20 04:30 97.6 60 26 118/71 (87) 99 03/21/20 04:00 100 03/21/20 04:00 Mechanical Ventilator Mechanical Ventilator 03/21/20 04:00 109/69 03/21/20 04:00 26 Mechanical Ventilator 100 03/21/20 04:00 66 26 109/69 (82) 95 03/21/20 04:00 62 03/21/20 03:30 63 31 105/64 (78) 99 03/21/20 03:00 64 28 102/61 (75) 98 03/21/20 03:00 102/61 03/21/20 03:00 28 Mechanical Ventilator 100 03/21/20 02:36 81 28 100 03/21/20 02:30 72 28 104/64 (77) 97 03/21/20 02:00 68 27 106/63 (77) 99 03/21/20 02:00 106/63 03/21/20 02:00 27 Mechanical Ventilator 100 03/21/20 01:30 65 27 112/65 (81) 99 03/21/20 01:00 63 32 118/69 (85) 99 03/21/20 01:00 118/69 03/21/20 01:00 32 Mechanical Ventilator 100 03/21/20 00:44 78 26 100 03/21/20 00:30 61 32 120/70 (87) 99 03/21/20 00:00 Mechanical Ventilator Mechanical Ventilator 03/21/20 00:00 63 03/21/20 00:00 125/73 03/21/20 00:00 26 Mechanical Ventilator 100 03/21/20 00:00 97.9 64 26 125/73 (90) 98 Accucheck: 224 Critical Care - Subjective ROS Limited/Unobtainable: No Condition: critical FI02: 100 Vent Support Breath Rate: 26 Vent Support Mode: AC Vent Tidal Volume: 450 Sputum Amount: Small PEEP: 16.0 PIP: 46 Tube Feeding Amount: 45 I&O: Intake and Output 03/20/20 03/21/20 19:00 07:00 Intake Total 1804.83447 ml 1813.00 ml Output Total 910 ml 1060 ml Balance 894.71092 ml 753.00 ml Free Water 20 ml IV Total 1159.82851 ml 1053.00 ml Tube Feeding 445 ml 540 ml Other 180 ml 220 ml Output Urine Total 910 ml 1060 ml ET-Tube: 7.5 ET Position: 21 Doron Carrillo MD March 21, 2020 23:57
[2020-03-22] VITALS (45 sets, daily range): BP systolic 102–169; BP diastolic 52–93
[2020-03-22] MEDS: Metoclopramide 10mg/2ml Inj IVP SCH ×5 (00:07→23:36)
[2020-03-22] MEDS: NovoLOG Insulin Flexpen SUBQ SCH ×5 (00:08→23:37)
[2020-03-22] MEDS: fentaNYL Citrate 2,500 MCG in NS 200 ML IV SCH ×3 (04:21→19:30)
[2020-03-22 06:29] LABS: HEMATOCRIT 28.9 % (37.0-47.0); HEMOGLOBIN 9.5 G/DL (12.0-16.0); LYMPHOCYTES % (AUTO) 8.2 % (20.0-45.0); MEAN CORPUSCULAR VOLUME 103 FL (80-99); MONOCYTES % (AUTO) 9.1 % (1.0-10.0); NEUTROPHILS % (AUTO) 81.6 % (45.0-75.0); PLATELET COUNT 149 K/UL (150-450); RED BLOOD COUNT 2.82 M/UL (4.20-5.40); WHITE BLOOD COUNT 10.8 K/UL (4.8-10.8)
[2020-03-22 06:49] LABS: ALANINE AMINOTRANSFERASE 36 U/L (12-78); ALBUMIN 2.5 G/DL (3.4-5.0); ALBUMIN/GLOBULIN RATIO 0.4 (1.0-2.7); ALKALINE PHOSPHATASE 183 U/L (46-116); ANION GAP 2 mmol/L (5-15); ASPARTATE AMINO TRANSFERASE 83 U/L (15-37); BILIRUBIN,TOTAL 1.6 MG/DL (0.2-1.0); BLOOD UREA NITROGEN 25 mg/dL (7-18); CALCIUM 8.6 MG/DL (8.5-10.1); CARBON DIOXIDE 34 MMOL/L (21-32); CHLORIDE 102 MMOL/L (98-107); CREATININE 0.8 MG/DL (0.55-1.30); PHOSPHORUS 2.7 MG/DL (2.5-4.9); POTASSIUM 4.1 MMOL/L (3.5-5.1); SODIUM 138 MMOL/L (136-145)
[2020-03-22 06:52] LABS: BILIRUBIN,DIRECT 0.8 MG/DL (0.0-0.3)
[2020-03-22 07:20] LABS: AMMONIA 104 umol/L (11-32)
[2020-03-22] MEDS: Solu-MEDROL 125mg Inj IVP SCH (08:56)
[2020-03-22] MEDS: Levofloxacin 750mg tab NG SCH (08:56)
[2020-03-22] MEDS: Midodrine 10mg tab NG SCH ×2 (08:56→12:06)
[2020-03-22] MEDS: Enoxaparin 40mg Inj SUBQ SCH (08:59)
--- NOTE | 2020-03-22 09:29 | General Progress Note ---
Assessment/Plan Status: progressing, unchanged Assessment/Plan: macrocytic anemia elevated LFTS cirrhosis cellulitis elevated Ammonia levels respiratory distress>>> now failure COVID positive pna NGTF abd us>> reviewed Xifaxan fu stool ob>>>neg GI procedures if needed abx per id hepatitis panel>>>>>positive for hep C>>> needs out patient fu poor prognosis resume lactulose BID ammonia level in am will fu Subjective ROS Limited/Unobtainable: No Allergies: Coded Allergies: No Known Allergies (Unverified , 02/29/20) Objective Last 24 Hour Vital Signs Date Time Temp Pulse Resp B/P (MAP) Pulse Ox O2 Delivery O2 Flow Rate FiO2 03/22/20 06:40 76 28 100 03/22/20 06:00 130/76 03/22/20 06:00 26 Mechanical Ventilator 100 03/22/20 05:45 76 26 138/72 (94) 95 03/22/20 05:30 78 25 134/70 (91) 96 03/22/20 05:00 92/48 03/22/20 05:00 26 Mechanical Ventilator 100 03/22/20 05:00 86 25 102/52 (69) 95 03/22/20 04:58 68 29 100 03/22/20 04:30 111 21 140/80 (100) 97 03/22/20 04:21 26 Mechanical Ventilator 100 03/22/20 04:00 112 03/22/20 04:00 100 03/22/20 04:00 98.9 111 19 140/81 (100) 99 03/22/20 04:00 100/49 03/22/20 04:00 26 Mechanical Ventilator 100 03/22/20 04:00 Mechanical Ventilator Mechanical Ventilator 03/22/20 03:30 108 26 131/72 (91) 99 03/22/20 03:00 109 24 145/86 (105) 99 03/22/20 03:00 120/60 03/22/20 03:00 26 Mechanical Ventilator 100 03/22/20 02:30 108 26 151/78 (102) 99 03/22/20 02:00 104 27 144/74 (97) 99 03/22/20 02:00 135/75 03/22/20 02:00 26 Mechanical Ventilator 100 03/22/20 01:30 101 23 147/80 (102) 99 03/22/20 01:10 69 27 100 03/22/20 01:00 105/75 03/22/20 01:00 26 Mechanical Ventilator 100 03/22/20 01:00 95 27 146/80 (102) 100 03/22/20 00:30 72 26 145/73 (97) 100 03/22/20 00:15 92 24 148/91 (110) 99 03/22/20 00:00 Mechanical Ventilator Mechanical Ventilator 03/22/20 00:00 145/73 03/22/20 00:00 26 Mechanical Ventilator 100 03/22/20 00:00 100 03/22/20 00:00 97.1 88 23 153/93 (113) 100 03/21/20 23:45 97 23 144/90 (108) 99 03/21/20 23:30 96 21 154/83 (106) 98 03/21/20 23:25 68 03/21/20 23:02 67 28 100 03/21/20 23:00 150/70 03/21/20 23:00 26 Mechanical Ventilator 100 03/21/20 23:00 67 29 150/88 (108) 99 03/21/20 22:30 73 26 136/90 (105) 100 03/21/20 22:00 145/69 03/21/20 22:00 26 Mechanical Ventilator 100 03/21/20 22:00 75 25 163/88 (113) 99 03/21/20 21:30 70 33 168/87 (114) 99 03/21/20 21:00 150/88 03/21/20 21:00 120/68 03/21/20 21:00 150/88 03/21/20 21:00 26 Mechanical Ventilator 100 03/21/20 21:00 54 24 110/64 (79) 100 03/21/20 20:45 58 32 110/74 (86) 99 03/21/20 20:30 66 29 104/63 (77) 88 03/21/20 20:00 100 03/21/20 20:00 Mechanical Ventilator Mechanical Ventilator 03/21/20 20:00 49 20 20:00 100/58 20 20:00 26 Mechanical Ventilator 100 03/21/20 20:00 98.5 58 27 122/74 (90) 98 03/21/20 19:30 120/68 5/5/20 19:30 59 28 121/65 (83) 98 03/21/20 19:00 67 25 120/68 (85) 97 03/21/20 19:00 109/61 03/21/20 19:00 26 Mechanical Ventilator 100 03/21/20 18:59 61 26 100 03/21/20 18:44 26 Mechanical Ventilator 100 03/21/20 18:43 26 Mechanical Ventilator 100 03/21/20 18:00 58 26 111/62 (78) 98 03/21/20 18:00 122/69 03/21/20 18:00 26 Mechanical Ventilator 100 03/21/20 17:30 61 27 129/70 (89) 98 03/21/20 17:00 60 27 131/75 (93) 95 03/21/20 17:00 131/75 03/21/20 17:00 26 Mechanical Ventilator 100 03/21/20 16:30 61 28 138/73 (94) 99 03/21/20 16:00 Mechanical Ventilator Mechanical Ventilator 03/21/20 16:00 62 03/21/20 16:00 100 03/21/20 16:00 57 26 132/70 (90) 99 03/21/20 16:00 132/70 03/21/20 16:00 26 Mechanical Ventilator 100 03/21/20 15:30 59 28 138/80 (99) 96 03/21/20 15:09 58 26 100 03/21/20 15:00 56 25 122/74 (90) 96 03/21/20 15:00 122/74 03/21/20 15:00 26 Mechanical Ventilator 100 03/21/20 14:30 61 27 118/69 (85) 65 03/21/20 14:00 62 27 121/70 (87) 96 03/21/20 14:00 121/70 03/21/20 14:00 26 Mechanical Ventilator 100 03/21/20 13:30 68 27 127/70 (89) 98 03/21/20 13:00 69 26 109/67 (81) 96 03/21/20 13:00 109/67 03/21/20 13:00 26 Mechanical Ventilator 100 03/21/20 12:30 75 26 123/70 (87) 93 03/21/20 12:22 20 Mechanical Ventilator 100 03/21/20 12:00 76 28 119/72 (88) 93 03/21/20 12:00 100 5/5/20 12:00 119/72 03/21/20 12:00 26 Mechanical Ventilator 100 03/21/20 12:00 Mechanical Ventilator Mechanical Ventilator 03/21/20 12:00 62 03/21/20 11:45 129/74 03/21/20 11:30 131/75 03/21/20 11:30 60 28 131/75 (93) 92 03/21/20 11:15 133/77 03/21/20 11:14 58 28 100 03/21/20 11:00 59 28 118/70 (86) 90 03/21/20 11:00 118/70 03/21/20 11:00 26 Mechanical Ventilator 100 03/21/20 10:30 66 25 128/74 (92) 90 03/21/20 10:00 60 26 124/71 (88) 97 03/21/20 10:00 150/100 03/21/20 10:00 26 Mechanical Ventilator 100 03/21/20 09:30 62 26 121/73 (89) 96 Intake and Output 03/21/20 03/22/20 19:00 07:00 Intake Total 1496.250 ml 979.841 ml Output Total 1275 ml 1050 ml Balance 221.250 ml -70.159 ml Free Water 90 ml 60 ml IV Total 866.250 ml 424.841 ml Tube Feeding 540 ml 495 ml Output Urine Total 1275 ml 1050 ml Laboratory Tests 03/21/20 21:30: Arterial Blood pH 7.325L, Arterial Blood Partial Pressure CO2 58.3*H, Arterial Blood Partial Pressure O2 148.4H, Arterial Blood HCO3 29.7H, Arterial Blood Oxygen Saturation 98.6, Arterial Blood Base Excess 2.7H, Joaquin Test Positive 03/22/20 04:00: White Blood Count 10.8, Red Blood Count 2.82L, Hemoglobin 9.5L, Hematocrit 28.9L , Mean Corpuscular Volume 103H, Mean Corpuscular Hemoglobin 33.6H, Mean Corpuscular Hemoglobin Concent 32.8, Red Cell Distribution Width 17.0H, Platelet Count 149L, Mean Platelet Volume 6.2L, Neutrophils (%) (Auto) 81.6H, Lymphocytes (%) (Auto) 8.2L, Monocytes (%) (Auto) 9.1, Eosinophils (%) (Auto) 0.0, Basophils (%) (Auto) 1.0, Sodium Level 138, Potassium Level 4.1, Chloride Level 102, Carbon Dioxide Level 34H, Anion Gap 2L, Blood Urea Nitrogen 25H, Creatinine 0.8, Estimat Glomerular Filtration Rate > 60, Glucose Level 208H, Calcium Level 8.6, Phosphorus Level 2.7, Magnesium Level 2.4, Total Bilirubin 1.6H, Direct Bilirubin 0.8H, Aspartate Amino Transf (AST/SGOT) 83H, Alanine Aminotransferase (ALT/SGPT) 36, Alkaline Phosphatase 183H, Ammonia 104H, C- Reactive Protein, Quantitative 6.2H, Pro-B-Type Natriuretic Peptide 57208M, Total Protein 8.5H, Albumin 2.5L, Globulin 6.0, Albumin/Globulin Ratio 0.4L 03/22/20 06:55: Arterial Blood pH 7.295L, Arterial Blood Partial Pressure CO2 68.5*H, Arterial Blood Partial Pressure O2 117.9H, Arterial Blood HCO3 32.6H, Arterial Blood Oxygen Saturation 99.1, Arterial Blood Base Excess 4.6H, Joaquin Test Positive Height (Feet): 5 Height (Inches): 1.00 Weight (Pounds): 237 General Appearance: no apparent distress EENT: normal ENT inspection Neck: supple Cardiovascular: normal rate Respiratory/Chest: decreased breath sounds Abdomen: normal bowel sounds, non tender, soft Extremities: non-tender Tam Spicer MD March 22, 2020 09:29
--- NOTE | 2020-03-22 09:51 | Surgery Progress Note ---
Surgery Progress Note Subjective Additional Comments fi02 90% peep 16 saturation 80's% ill appearing labs pending exam unchanged Objective Last 24 Hour Vital Signs Date Time Temp Pulse Resp B/P (MAP) Pulse Ox O2 Delivery O2 Flow Rate FiO2 03/22/20 09:30 79 26 90 03/22/20 06:40 76 28 100 03/22/20 06:00 130/76 03/22/20 06:00 26 Mechanical Ventilator 100 03/22/20 05:45 76 26 138/72 (94) 95 03/22/20 05:30 78 25 134/70 (91) 96 03/22/20 05:00 92/48 03/22/20 05:00 26 Mechanical Ventilator 100 03/22/20 05:00 86 25 102/52 (69) 95 03/22/20 04:58 68 29 100 03/22/20 04:30 111 21 140/80 (100) 97 03/22/20 04:21 26 Mechanical Ventilator 100 03/22/20 04:00 112 03/22/20 04:00 100 03/22/20 04:00 98.9 111 19 140/81 (100) 99 03/22/20 04:00 100/49 03/22/20 04:00 26 Mechanical Ventilator 100 03/22/20 04:00 Mechanical Ventilator Mechanical Ventilator 03/22/20 03:30 108 26 131/72 (91) 99 03/22/20 03:00 109 24 145/86 (105) 99 03/22/20 03:00 120/60 03/22/20 03:00 26 Mechanical Ventilator 100 03/22/20 02:30 108 26 151/78 (102) 99 03/22/20 02:00 104 27 144/74 (97) 99 03/22/20 02:00 135/75 03/22/20 02:00 26 Mechanical Ventilator 100 03/22/20 01:30 101 23 147/80 (102) 99 03/22/20 01:10 69 27 100 03/22/20 01:00 105/75 03/22/20 01:00 26 Mechanical Ventilator 100 03/22/20 01:00 95 27 146/80 (102) 100 03/22/20 00:30 72 26 145/73 (97) 100 03/22/20 00:15 92 24 148/91 (110) 99 03/22/20 00:00 Mechanical Ventilator Mechanical Ventilator 03/22/20 00:00 145/73 03/22/20 00:00 26 Mechanical Ventilator 100 03/22/20 00:00 100 03/22/20 00:00 97.1 88 23 153/93 (113) 100 03/21/20 23:45 97 23 144/90 (108) 99 03/21/20 23:30 96 21 154/83 (106) 98 03/21/20 23:25 68 03/21/20 23:02 67 28 100 03/21/20 23:00 150/70 03/21/20 23:00 26 Mechanical Ventilator 100 03/21/20 23:00 67 29 150/88 (108) 99 03/21/20 22:30 73 26 136/90 (105) 100 03/21/20 22:00 145/69 03/21/20 22:00 26 Mechanical Ventilator 100 03/21/20 22:00 75 25 163/88 (113) 99 03/21/20 21:30 70 33 168/87 (114) 99 03/21/20 21:00 150/88 03/21/20 21:00 120/68 03/21/20 21:00 150/88 03/21/20 21:00 26 Mechanical Ventilator 100 03/21/20 21:00 54 24 110/64 (79) 100 03/21/20 20:45 58 32 110/74 (86) 99 03/21/20 20:30 66 29 104/63 (77) 88 03/21/20 20:00 100 03/21/20 20:00 Mechanical Ventilator Mechanical Ventilator 03/21/20 20:00 49 03/21/20 20:00 100/58 03/21/20 20:00 26 Mechanical Ventilator 100 03/21/20 20:00 98.5 58 27 122/74 (90) 98 03/21/20 19:30 120/68 03/21/20 19:30 59 28 121/65 (83) 98 03/21/20 19:00 67 25 120/68 (85) 97 03/21/20 19:00 109/61 03/21/20 19:00 26 Mechanical Ventilator 100 03/21/20 18:59 61 26 100 03/21/20 18:44 26 Mechanical Ventilator 100 03/21/20 18:43 26 Mechanical Ventilator 100 03/21/20 18:00 58 26 111/62 (78) 98 03/21/20 18:00 122/69 03/21/20 18:00 26 Mechanical Ventilator 100 03/21/20 17:30 61 27 129/70 (89) 98 03/21/20 17:00 60 27 131/75 (93) 95 03/21/20 17:00 131/75 03/21/20 17:00 26 Mechanical Ventilator 100 03/21/20 16:30 61 28 138/73 (94) 99 03/21/20 16:00 Mechanical Ventilator Mechanical Ventilator 03/21/20 16:00 62 03/21/20 16:00 100 03/21/20 16:00 57 26 132/70 (90) 99 03/21/20 16:00 132/70 03/21/20 16:00 26 Mechanical Ventilator 100 03/21/20 15:30 59 28 138/80 (99) 96 03/21/20 15:09 58 26 100 03/21/20 15:00 56 25 122/74 (90) 96 03/21/20 15:00 122/74 03/21/20 15:00 26 Mechanical Ventilator 100 03/21/20 14:30 61 27 118/69 (85) 65 03/21/20 14:00 62 27 121/70 (87) 96 03/21/20 14:00 121/70 03/21/20 14:00 26 Mechanical Ventilator 100 03/21/20 13:30 68 27 127/70 (89) 98 03/21/20 13:00 69 26 109/67 (81) 96 03/21/20 13:00 109/67 03/21/20 13:00 26 Mechanical Ventilator 100 03/21/20 12:30 75 26 123/70 (87) 93 03/21/20 12:22 20 Mechanical Ventilator 100 03/21/20 12:00 76 28 119/72 (88) 93 03/21/20 12:00 100 03/21/20 12:00 119/72 03/21/20 12:00 26 Mechanical Ventilator 100 03/21/20 12:00 Mechanical Ventilator Mechanical Ventilator 03/21/20 12:00 62 03/21/20 11:45 129/74 03/21/20 11:30 131/75 03/21/20 11:30 60 28 131/75 (93) 92 03/21/20 11:15 133/77 03/21/20 11:14 58 28 100 03/21/20 11:00 59 28 118/70 (86) 90 03/21/20 11:00 118/70 03/21/20 11:00 26 Mechanical Ventilator 100 03/21/20 10:30 66 25 128/74 (92) 90 03/21/20 10:00 60 26 124/71 (88) 97 03/21/20 10:00 150/100 03/21/20 10:00 26 Mechanical Ventilator 100 I&O Intake and Output 03/21/20 03/22/20 19:00 07:00 Intake Total 1496.250 ml 979.841 ml Output Total 1275 ml 1050 ml Balance 221.250 ml -70.159 ml Free Water 90 ml 60 ml IV Total 866.250 ml 424.841 ml Tube Feeding 540 ml 495 ml Output Urine Total 1275 ml 1050 ml Dressing: other Wound: other Drains: other Cardiovascular: RSR Respiratory: decreased breath sounds Abdomen: soft, non-tender, present bowel sounds Extremities: edema, tenderness, no cyanosis Laboratory Tests Test 03/21/20 21:30 03/22/20 04:00 03/22/20 06:55 Arterial Blood pH 7.325 (7.350-7.450) 7.295 (7.350-7.450) Arterial Blood Partial Pressure CO2 58.3 mmHg (35.0-45.0) *H 68.5 mmHg (35.0-45.0) *H Arterial Blood Partial Pressure O2 148.4 mmHg (75.0-100.0) H 117.9 mmHg (75.0-100.0) H Arterial Blood HCO3 29.7 mmol/L (22.0-26.0) H 32.6 mmol/L (22.0-26.0) H Arterial Blood Oxygen Saturation 98.6 % (95-100) 99.1 % (95-100) Arterial Blood Base Excess 2.7 (-2-2) H 4.6 (-2-2) H Joaquin Test Positive Positive White Blood Count 10.8 K/UL (4.8-10.8) Red Blood Count 2.82 M/UL (4.20-5.40) L Hemoglobin 9.5 G/DL (12.0-16.0) L Hematocrit 28.9 % (37.0-47.0) L Mean Corpuscular Volume 103 FL (80-99) H Mean Corpuscular Hemoglobin 33.6 PG (27.0-31.0) H Mean Corpuscular Hemoglobin Concent 32.8 G/DL (32.0-36.0) Red Cell Distribution Width 17.0 % (11.6-14.8) H Platelet Count 149 K/UL (150-450) L Mean Platelet Volume 6.2 FL (6.5-10.1) L Neutrophils (%) (Auto) 81.6 % (45.0-75.0) H Lymphocytes (%) (Auto) 8.2 % (20.0-45.0) L Monocytes (%) (Auto) 9.1 % (1.0-10.0) Eosinophils (%) (Auto) 0.0 % (0.0-3.0) Basophils (%) (Auto) 1.0 % (0.0-2.0) Sodium Level 138 MMOL/L (136-145) Potassium Level 4.1 MMOL/L (3.5-5.1) Chloride Level 102 MMOL/L (98-107) Carbon Dioxide Level 34 MMOL/L (21-32) H Anion Gap 2 mmol/L (5-15) L Blood Urea Nitrogen 25 mg/dL (7-18) H Creatinine 0.8 MG/DL (0.55-1.30) Estimat Glomerular Filtration Rate > 60 mL/min (>60) Glucose Level 208 MG/DL (74-106) H Calcium Level 8.6 MG/DL (8.5-10.1) Phosphorus Level 2.7 MG/DL (2.5-4.9) Magnesium Level 2.4 MG/DL (1.8-2.4) Total Bilirubin 1.6 MG/DL (0.2-1.0) H Direct Bilirubin 0.8 MG/DL (0.0-0.3) H Aspartate Amino Transf (AST/SGOT) 83 U/L (15-37) H Alanine Aminotransferase (ALT/SGPT) 36 U/L (12-78) Alkaline Phosphatase 183 U/L (46-116) H Ammonia 104 umol/L (11-32) H C-Reactive Protein, Quantitative 6.2 mg/dL (0.00-0.90) H Pro-B-Type Natriuretic Peptide 62914 pg/mL (0-125) H Total Protein 8.5 G/DL (6.4-8.2) H Albumin 2.5 G/DL (3.4-5.0) L Globulin 6.0 g/dL Albumin/Globulin Ratio 0.4 (1.0-2.7) L Plan Problems: (1) Cellulitis Assessment & Plan: bilateral lower extremity cellulitis / edema chronic venous status changes dermatitis no abscess no purulent drainage ulcerations forming. keep lower extremity elevated while in bed apply skin protectant / moisturizing cream daily okay to shower okay to wrap soft after cream abx as per ID for cellulitis okay for diet duplex ordered trend labs will follow with recs thank you No evidence of deep venous thrombosis involving the visualized veins of the RIGHT lower extremity. refused eval of left COVID ++ cxr noted cont current supportive care improving labs stable improving slowly wean pressors as tolerated Patient is acutely worsened intubated on vent support 2 pressors now worsening labs worsening Prognosis is guarded we will continue with maximal support efforts (2) COVID-19 Assessment & Plan: see above Theron Sotomayor March 22, 2020 09:51
--- NOTE | 2020-03-22 10:26 | Infectious Diseases Prog Note ---
Assessment/Plan Assessment/Plan IMPRESSION: 1. Bilateral leg cellulitis,Pseudomonas in culture 2. Anemia. 3. Hypoxemic respiratory failure 4. Thrombocytopenia. 5. Homeless 6. Morbid obesity. 7. Cirrhosis 8. COVID19 pneumonia Positive03/07-03/12 9. Hepatitis C 10.septic shock 11. Pneumonia with Stenotrophomonas & Achromobacter RECOMMENDATION: Will f/u COVID19 test Finished Plaquenil & Zithromax course Received a dose of Actemra & Ivermectin Continue Levaquin Subjective ROS Limited/Unobtainable: Yes Constitutional: Denies: fever Neurologic: Reports: other - on restraint Allergies: Coded Allergies: No Known Allergies (Unverified , 02/29/20) Objective Vital Signs Last 24 Hour Vital Signs Date Time Temp Pulse Resp B/P (MAP) Pulse Ox O2 Delivery O2 Flow Rate FiO2 03/22/20 09:30 79 26 90 03/22/20 08:00 100 03/22/20 06:40 76 28 100 03/22/20 06:00 130/76 03/22/20 06:00 26 Mechanical Ventilator 100 03/22/20 05:45 76 26 138/72 (94) 95 03/22/20 05:30 78 25 134/70 (91) 96 03/22/20 05:00 92/48 03/22/20 05:00 26 Mechanical Ventilator 100 03/22/20 05:00 86 25 102/52 (69) 95 03/22/20 04:58 68 29 100 03/22/20 04:30 111 21 140/80 (100) 97 03/22/20 04:21 26 Mechanical Ventilator 100 03/22/20 04:00 112 03/22/20 04:00 100 03/22/20 04:00 98.9 111 19 140/81 (100) 99 03/22/20 04:00 100/49 03/22/20 04:00 26 Mechanical Ventilator 100 03/22/20 04:00 Mechanical Ventilator Mechanical Ventilator 03/22/20 03:30 108 26 131/72 (91) 99 03/22/20 03:00 109 24 145/86 (105) 99 03/22/20 03:00 120/60 03/22/20 03:00 26 Mechanical Ventilator 100 03/22/20 02:30 108 26 151/78 (102) 99 03/22/20 02:00 104 27 144/74 (97) 99 20 02:00 135/75 20 02:00 26 Mechanical Ventilator 100 03/22/20 01:30 101 23 147/80 (102) 99 20 01:10 69 27 100 20 01:00 105/75 520 01:00 26 Mechanical Ventilator 100 03/22/20 01:00 95 27 146/80 (102) 100 03/22/20 00:30 72 26 145/73 (97) 100 03/22/20 00:15 92 24 148/91 (110) 99 03/22/20 00:00 Mechanical Ventilator Mechanical Ventilator 03/22/20 00:00 145/73 03/22/20 00:00 26 Mechanical Ventilator 100 03/22/20 00:00 100 03/22/20 00:00 97.1 88 23 153/93 (113) 100 03/21/20 23:45 97 23 144/90 (108) 99 03/21/20 23:30 96 21 154/83 (106) 98 03/21/20 23:25 68 03/21/20 23:02 67 28 100 03/21/20 23:00 150/70 20 23:00 26 Mechanical Ventilator 100 03/21/20 23:00 67 29 150/88 (108) 99 03/21/20 22:30 73 26 136/90 (105) 100 03/21/20 22:00 145/69 20 22:00 26 Mechanical Ventilator 100 03/21/20 22:00 75 25 163/88 (113) 99 03/21/20 21:30 70 33 168/87 (114) 99 20 21:00 150/88 520 21:00 120/68 520 21:00 150/88 20 21:00 26 Mechanical Ventilator 100 03/21/20 21:00 54 24 110/64 (79) 100 20 20:45 58 32 110/74 (86) 99 20 20:30 66 29 104/63 (77) 88 20 20:00 100 20 20:00 Mechanical Ventilator Mechanical Ventilator 03/21/20 20:00 49 5/5/20 20:00 100/58 03/21/20 20:00 26 Mechanical Ventilator 100 03/21/20 20:00 98.5 58 27 122/74 (90) 98 03/21/20 19:30 120/68 03/21/20 19:30 59 28 121/65 (83) 98 03/21/20 19:00 67 25 120/68 (85) 97 03/21/20 19:00 109/61 03/21/20 19:00 26 Mechanical Ventilator 100 03/21/20 18:59 61 26 100 03/21/20 18:44 26 Mechanical Ventilator 100 03/21/20 18:43 26 Mechanical Ventilator 100 03/21/20 18:00 58 26 111/62 (78) 98 03/21/20 18:00 122/69 03/21/20 18:00 26 Mechanical Ventilator 100 03/21/20 17:30 61 27 129/70 (89) 98 03/21/20 17:00 60 27 131/75 (93) 95 03/21/20 17:00 131/75 03/21/20 17:00 26 Mechanical Ventilator 100 03/21/20 16:30 61 28 138/73 (94) 99 03/21/20 16:00 Mechanical Ventilator Mechanical Ventilator 03/21/20 16:00 62 03/21/20 16:00 100 03/21/20 16:00 57 26 132/70 (90) 99 03/21/20 16:00 132/70 03/21/20 16:00 26 Mechanical Ventilator 100 03/21/20 15:30 59 28 138/80 (99) 96 03/21/20 15:09 58 26 100 03/21/20 15:00 56 25 122/74 (90) 96 03/21/20 15:00 122/74 03/21/20 15:00 26 Mechanical Ventilator 100 03/21/20 14:30 61 27 118/69 (85) 65 03/21/20 14:00 62 27 121/70 (87) 96 03/21/20 14:00 121/70 03/21/20 14:00 26 Mechanical Ventilator 100 03/21/20 13:30 68 27 127/70 (89) 98 03/21/20 13:00 69 26 109/67 (81) 96 03/21/20 13:00 109/67 03/21/20 13:00 26 Mechanical Ventilator 100 03/21/20 12:30 75 26 123/70 (87) 93 03/21/20 12:22 20 Mechanical Ventilator 100 03/21/20 12:00 76 28 119/72 (88) 93 03/21/20 12:00 100 03/21/20 12:00 119/72 03/21/20 12:00 26 Mechanical Ventilator 100 03/21/20 12:00 Mechanical Ventilator Mechanical Ventilator 03/21/20 12:00 62 03/21/20 11:45 129/74 03/21/20 11:30 131/75 03/21/20 11:30 60 28 131/75 (93) 92 03/21/20 11:15 133/77 03/21/20 11:14 58 28 100 03/21/20 11:00 59 28 118/70 (86) 90 03/21/20 11:00 118/70 03/21/20 11:00 26 Mechanical Ventilator 100 03/21/20 10:30 66 25 128/74 (92) 90 Height (Feet): 5 Height (Inches): 1.00 Weight (Pounds): 237 HEENT: other - orally intubated Respiratory/Chest: pleural rub - on ventilator Cardiovascular: normal rate, other - PICC line Abdomen: other - NG tube Extremities: other - edema Neurologic/Psychiatric: unresponsiveness Laboratory Tests Test 03/21/20 21:30 03/22/20 04:00 03/22/20 06:55 Arterial Blood pH 7.325 (7.350-7.450) 7.295 (7.350-7.450) Arterial Blood Partial Pressure CO2 58.3 mmHg (35.0-45.0) *H 68.5 mmHg (35.0-45.0) *H Arterial Blood Partial Pressure O2 148.4 mmHg (75.0-100.0) H 117.9 mmHg (75.0-100.0) H Arterial Blood HCO3 29.7 mmol/L (22.0-26.0) H 32.6 mmol/L (22.0-26.0) H Arterial Blood Oxygen Saturation 98.6 % (95-100) 99.1 % (95-100) Arterial Blood Base Excess 2.7 (-2-2) H 4.6 (-2-2) H Joaquin Test Positive Positive White Blood Count 10.8 K/UL (4.8-10.8) Red Blood Count 2.82 M/UL (4.20-5.40) L Hemoglobin 9.5 G/DL (12.0-16.0) L Hematocrit 28.9 % (37.0-47.0) L Mean Corpuscular Volume 103 FL (80-99) H Mean Corpuscular Hemoglobin 33.6 PG (27.0-31.0) H Mean Corpuscular Hemoglobin Concent 32.8 G/DL (32.0-36.0) Red Cell Distribution Width 17.0 % (11.6-14.8) H Platelet Count 149 K/UL (150-450) L Mean Platelet Volume 6.2 FL (6.5-10.1) L Neutrophils (%) (Auto) 81.6 % (45.0-75.0) H Lymphocytes (%) (Auto) 8.2 % (20.0-45.0) L Monocytes (%) (Auto) 9.1 % (1.0-10.0) Eosinophils (%) (Auto) 0.0 % (0.0-3.0) Basophils (%) (Auto) 1.0 % (0.0-2.0) Sodium Level 138 MMOL/L (136-145) Potassium Level 4.1 MMOL/L (3.5-5.1) Chloride Level 102 MMOL/L (98-107) Carbon Dioxide Level 34 MMOL/L (21-32) H Anion Gap 2 mmol/L (5-15) L Blood Urea Nitrogen 25 mg/dL (7-18) H Creatinine 0.8 MG/DL (0.55-1.30) Estimat Glomerular Filtration Rate > 60 mL/min (>60) Glucose Level 208 MG/DL (74-106) H Calcium Level 8.6 MG/DL (8.5-10.1) Phosphorus Level 2.7 MG/DL (2.5-4.9) Magnesium Level 2.4 MG/DL (1.8-2.4) Total Bilirubin 1.6 MG/DL (0.2-1.0) H Direct Bilirubin 0.8 MG/DL (0.0-0.3) H Aspartate Amino Transf (AST/SGOT) 83 U/L (15-37) H Alanine Aminotransferase (ALT/SGPT) 36 U/L (12-78) Alkaline Phosphatase 183 U/L (46-116) H Ammonia 104 umol/L (11-32) H C-Reactive Protein, Quantitative 6.2 mg/dL (0.00-0.90) H Pro-B-Type Natriuretic Peptide 49587 pg/mL (0-125) H Total Protein 8.5 G/DL (6.4-8.2) H Albumin 2.5 G/DL (3.4-5.0) L Globulin 6.0 g/dL Albumin/Globulin Ratio 0.4 (1.0-2.7) L Current Medications Medications (Trade) Dose Ordered Sig/Dolores Route PRN Reason Start Time Stop Time Status Last Admin Dose Admin Acetaminophen (Tylenol) 650 mg Q4H PRN ORAL Temp >100 03/13/20 14:53 04/12/20 14:52 03/19/20 06:25 Acetaminophen (Tylenol) 650 mg Q4H PRN ORAL Mild Pain (Pain Scale 1-3) 03/13/20 14:53 04/12/20 14:52 03/20/20 04:09 Chlorhexidine Gluconate (Lucretia-Hex 2%) 1 applic DAILY@2000 TOPIC 03/13/20 20:00 06/11/20 19:59 03/21/20 19:54 Dextrose (Dextrose 50%) 25 ml Q30M PRN IV Hypoglycemia 03/16/20 09:30 06/14/20 09:29 Dextrose (Dextrose 50%) 50 ml Q30M PRN IV Hypoglycemia 03/16/20 09:30 06/14/20 09:29 Dopamine HCl/ Dextrose 250 ml @ 0 mls/hr Q24H IV 03/16/20 19:30 06/14/20 19:29 03/21/20 21:00 Enoxaparin Sodium (Lovenox) 40 mg DAILY SUBQ 03/19/20 09:00 04/03/20 08:59 03/22/20 08:59 Fentanyl Citrate 2500 mcg/Sodium Chloride 250 ml @ 0 mls/hr Q24H IV 03/15/20 18:30 03/22/20 18:29 03/22/20 04:21 Insulin Aspart (NovoLOG) Q6HR SUBQ 03/16/20 12:00 06/14/20 11:59 5/6/20 04:50 Lactulose (Cephulac) 20 gm BID ORAL 03/22/20 18:00 04/21/20 17:59 Levofloxacin (Levaquin) 750 mg DAILY NG 03/20/20 12:00 03/27/20 11:59 03/22/20 08:56 Levothyroxine Sodium (Synthroid) 50 mcg DAILY IV 03/21/20 09:00 04/17/20 11:59 03/22/20 08:58 Methylprednisolone Sodium Succinate (Solu-MEDROL) 50 mg EVERY 12 HOURS IVP 03/20/20 21:00 06/17/20 20:59 03/22/20 08:56 Metoclopramide HCl (Reglan) 10 mg Q6HR IVP 03/21/20 12:00 04/20/20 11:59 03/22/20 04:49 Midodrine (Pro-Amatine) 10 mg THREE TIMES A DAY NG 03/20/20 13:00 06/18/20 12:59 03/22/20 08:56 Mirtazapine (Remeron) 7.5 mg BEDTIME PRN ORAL SLEEP 03/13/20 14:55 06/11/20 14:54 Non-Formulary Medication (Non-Formulary Med) 1 ea DAILY IV 03/18/20 09:00 04/17/20 08:59 UNV Norepinephrine Bitartrate 16 mg/ Dextrose 500 ml @ 0 mls/hr Q24H IV 03/17/20 21:00 04/16/20 13:02 03/21/20 05:03 Rifaximin (Xifaxan) 550 mg EVERY 12 HOURS ORAL 03/18/20 09:00 03/25/20 08:59 03/22/20 08:56 Vasopressin 100 units/Sodium Chloride 100 ml @ 0 mls/hr Q24H PRN IV For hypotension 03/16/20 11:00 04/15/20 10:59 03/19/20 18:03 [email or web address] Shah MD March 22, 2020 10:26
[2020-03-22] MEDS: DOPamine 400mg/250ml 250 ML IV SCH ×2 (11:17→20:26)
--- NOTE | 2020-03-22 11:51 | Hematology/Onc Progress Note ---
Assessment/Plan Assessment/Plan Assessment and Recs # Pancytopenia -- multiple etiologies could be related to underlying liver disease, medication-induced, infection versus viral syndrome versus underlying bone marrow cause, in this case, has severe liver disease and cirrhosis, HEP C++ , also cellulitis --> peripheral smear has been ordered and does not show significant abnormalities and none noted --> Medications have been reviewed --> Continue to monitor for improvement, trend cbc --> Hep panel and HIV are both negative --> US abd ordered to r/o cirrhosis and hepatosplenomegaly ->CIRRHOSIS IS NOTED , LARGE SPLEEN --> reverse isolation if ANC is <2000 --> Give neupogen if ANC <1000 --> Transfuse if hgb <7, with 1 unit prbc --> anemia panel ordered as well-->CW acd --> hgb trend 7-->7.1-->8.4-->8.2 -->8.7-->9.9-->9.2-->9.5 --> plt 145k-->152-->162k-->149k-->121k-->171k-->149 --> wbc 3.4-->3.5->3.9->4.4-->11-->10.8 --> abx: sameer/rifaximin-->levaquin # Cellulitis of the lower extremities --> continue abx as needed as per id --> Started on IV antibiotics-->azithro/cefepime-->levaquin --> as per surg recs, wound care # Ftt --> remains on mirtazapine # Elevated LFTS --> as per gi --> due to cirrhosis # Respiratory failure --> s/p intubation 03/16 --> prone positioning as needed by pulm # Dvt ppx lovenox sq The timing of this note does not necessarily reflect the time of the patient was seen. Greatly appreciate consultation. Subjective Allergies: Coded Allergies: No Known Allergies (Unverified , 02/29/20) Subjective 03/02 no events, no bleeding, hgb 7.1, no hemolysis 03/03 s/p blood, hgb improved to 8.4, stool ob negtive, on abx 03/05 asleep, no acute distress, hgb 8.2 03/06 remains comfortable, on abx, plt remains low 03/07 is on nonrebreather, no night sweats, labs are noted 03/08 labs reviewed, being diuresed, seen by cards, psych, labs noted 03/09 lasix adjusted, wbc remains low at 3.9, reviewed meds, smear 03/10 no night sweats, no bleeding, labs noted, smear noted 03/12 labs noted, none completed, have reordered, cellulitis better 03/13 is continuing with chest pain, cards aware, no further studies until covid neg 03/14 labs noted, no bleeding, diuresis as needed, hgb stable 03/15 alseep is cooperative, no bleeding, meds noted 03/16 no bleeding or chills, hgb 10.8, no night sweats, no major events 03/17 now intubated, no bleeding, labs noted, dw rn 03/19 remains intubated, no bleeding, labs noted, on pressors 03/20 prone posiition, seen by gi and renal, nob leeding, hgb 10.1 03/21 sedated, remains agitated, pulling on 2p restraints, no bleeding 03/22 icu, h/h stable, finished plaq/zithro, no acute distress Objective Objective Current Medications Medications (Trade) Dose Ordered Sig/Dolores Route PRN Reason Start Time Stop Time Status Last Admin Dose Admin Acetaminophen (Tylenol) 650 mg Q4H PRN ORAL Temp >100 03/13/20 14:53 04/12/20 14:52 03/19/20 06:25 Acetaminophen (Tylenol) 650 mg Q4H PRN ORAL Mild Pain (Pain Scale 1-3) 03/13/20 14:53 04/12/20 14:52 03/20/20 04:09 Chlorhexidine Gluconate (Lucretia-Hex 2%) 1 applic DAILY@1999 TOPIC 03/13/20 20:00 06/11/20 19:59 03/21/20 19:54 Dextrose (Dextrose 50%) 25 ml Q30M PRN IV Hypoglycemia 03/16/20 09:30 06/14/20 09:29 Dextrose (Dextrose 50%) 50 ml Q30M PRN IV Hypoglycemia 03/16/20 09:30 06/14/20 09:29 Dopamine HCl/ Dextrose 250 ml @ 0 mls/hr Q24H IV 03/16/20 19:30 06/14/20 19:29 03/22/20 11:17 Enoxaparin Sodium (Lovenox) 40 mg DAILY SUBQ 03/19/20 09:00 04/03/20 08:59 03/22/20 08:59 Fentanyl Citrate 2500 mcg/Sodium Chloride 250 ml @ 0 mls/hr Q24H IV 03/15/20 18:30 03/22/20 18:29 03/22/20 04:21 Insulin Aspart (NovoLOG) Q6HR SUBQ 03/16/20 12:00 06/14/20 11:59 03/22/20 04:50 Lactulose (Cephulac) 20 gm BID ORAL 03/22/20 18:00 04/21/20 17:59 Levofloxacin (Levaquin) 750 mg DAILY NG 03/20/20 12:00 03/27/20 11:59 03/22/20 08:56 Levothyroxine Sodium (Synthroid) 50 mcg DAILY IV 03/21/20 09:00 04/17/20 11:59 03/22/20 08:58 Methylprednisolone Sodium Succinate (Solu-MEDROL) 50 mg EVERY 12 HOURS IVP 03/20/20 21:00 06/17/20 20:59 03/22/20 08:56 Metoclopramide HCl (Reglan) 10 mg Q6HR IVP 03/21/20 12:00 04/20/20 11:59 03/22/20 11:17 Midodrine (Pro-Amatine) 10 mg THREE TIMES A DAY NG 03/20/20 13:00 06/18/20 12:59 03/22/20 08:56 Mirtazapine (Remeron) 7.5 mg BEDTIME PRN ORAL SLEEP 03/13/20 14:55 06/11/20 14:54 Non-Formulary Medication (Non-Formulary Med) 1 ea DAILY IV 03/18/20 09:00 04/17/20 08:59 UNV Norepinephrine Bitartrate 16 mg/ Dextrose 500 ml @ 0 mls/hr Q24H IV 03/17/20 21:00 04/16/20 13:02 03/21/20 05:03 Rifaximin (Xifaxan) 550 mg EVERY 12 HOURS ORAL 03/18/20 09:00 03/25/20 08:59 03/22/20 08:56 Vasopressin 100 units/Sodium Chloride 100 ml @ 0 mls/hr Q24H PRN IV For hypotension 03/16/20 11:00 04/15/20 10:59 03/19/20 18:03 Last 24 Hour Vital Signs Date Time Temp Pulse Resp B/P (MAP) Pulse Ox O2 Delivery O2 Flow Rate FiO2 03/22/20 11:17 141/73 03/22/20 10:30 66 26 150/85 (106) 99 03/22/20 10:00 67 25 142/84 (103) 98 03/22/20 10:00 90 03/22/20 09:30 79 26 90 03/22/20 09:30 80 25 146/82 (103) 93 03/22/20 09:00 69 26 153/88 (109) 96 03/22/20 08:30 73 33 150/81 (104) 91 03/22/20 08:00 Mechanical Ventilator Mechanical Ventilator 03/22/20 08:00 100 03/22/20 08:00 96.8 73 26 153/86 (108) 97 03/22/20 07:30 75 27 152/86 (108) 95 03/22/20 07:00 77 24 146/76 (99) 94 03/22/20 06:40 76 28 100 03/22/20 06:00 130/76 03/22/20 06:00 26 Mechanical Ventilator 100 03/22/20 05:45 76 26 138/72 (94) 95 03/22/20 05:30 78 25 134/70 (91) 96 03/22/20 05:00 92/48 03/22/20 05:00 26 Mechanical Ventilator 100 03/22/20 05:00 86 25 102/52 (69) 95 03/22/20 04:58 68 29 100 03/22/20 04:30 111 21 140/80 (100) 97 03/22/20 04:21 26 Mechanical Ventilator 100 03/22/20 04:00 112 03/22/20 04:00 100 03/22/20 04:00 98.9 111 19 140/81 (100) 99 03/22/20 04:00 100/49 03/22/20 04:00 26 Mechanical Ventilator 100 03/22/20 04:00 Mechanical Ventilator Mechanical Ventilator 03/22/20 03:30 108 26 131/72 (91) 99 03/22/20 03:00 109 24 145/86 (105) 99 03/22/20 03:00 120/60 03/22/20 03:00 26 Mechanical Ventilator 100 03/22/20 02:30 108 26 151/78 (102) 99 03/22/20 02:00 104 27 144/74 (97) 99 03/22/20 02:00 135/75 03/22/20 02:00 26 Mechanical Ventilator 100 03/22/20 01:30 101 23 147/80 (102) 99 03/22/20 01:10 69 27 100 03/22/20 01:00 105/75 03/22/20 01:00 26 Mechanical Ventilator 100 03/22/20 01:00 95 27 146/80 (102) 100 03/22/20 00:30 72 26 145/73 (97) 100 03/22/20 00:15 92 24 148/91 (110) 99 03/22/20 00:00 Mechanical Ventilator Mechanical Ventilator 03/22/20 00:00 145/73 03/22/20 00:00 26 Mechanical Ventilator 100 03/22/20 00:00 100 03/22/20 00:00 97.1 88 23 153/93 (113) 100 03/21/20 23:45 97 23 144/90 (108) 99 03/21/20 23:30 96 21 154/83 (106) 98 03/21/20 23:25 68 03/21/20 23:02 67 28 100 03/21/20 23:00 150/70 03/21/20 23:00 26 Mechanical Ventilator 100 03/21/20 23:00 67 29 150/88 (108) 99 03/21/20 22:30 73 26 136/90 (105) 100 03/21/20 22:00 145/69 03/21/20 22:00 26 Mechanical Ventilator 100 03/21/20 22:00 75 25 163/88 (113) 99 03/21/20 21:30 70 33 168/87 (114) 99 03/21/20 21:00 150/88 03/21/20 21:00 120/68 03/21/20 21:00 150/88 5/5/20 21:00 26 Mechanical Ventilator 100 03/21/20 21:00 54 24 110/64 (79) 100 03/21/20 20:45 58 32 110/74 (86) 99 03/21/20 20:30 66 29 104/63 (77) 88 03/21/20 20:00 100 03/21/20 20:00 Mechanical Ventilator Mechanical Ventilator 03/21/20 20:00 49 03/21/20 20:00 100/58 03/21/20 20:00 26 Mechanical Ventilator 100 03/21/20 20:00 98.5 58 27 122/74 (90) 98 03/21/20 19:30 120/68 03/21/20 19:30 59 28 121/65 (83) 98 03/21/20 19:00 67 25 120/68 (85) 97 03/21/20 19:00 109/61 03/21/20 19:00 26 Mechanical Ventilator 100 03/21/20 18:59 61 26 100 03/21/20 18:44 26 Mechanical Ventilator 100 03/21/20 18:43 26 Mechanical Ventilator 100 03/21/20 18:00 58 26 111/62 (78) 98 03/21/20 18:00 122/69 03/21/20 18:00 26 Mechanical Ventilator 100 03/21/20 17:30 61 27 129/70 (89) 98 03/21/20 17:00 60 27 131/75 (93) 95 03/21/20 17:00 131/75 03/21/20 17:00 26 Mechanical Ventilator 100 03/21/20 16:30 61 28 138/73 (94) 99 03/21/20 16:00 Mechanical Ventilator Mechanical Ventilator 03/21/20 16:00 62 03/21/20 16:00 100 03/21/20 16:00 57 26 132/70 (90) 99 03/21/20 16:00 132/70 03/21/20 16:00 26 Mechanical Ventilator 100 03/21/20 15:30 59 28 138/80 (99) 96 03/21/20 15:09 58 26 100 03/21/20 15:00 56 25 122/74 (90) 96 03/21/20 15:00 122/74 03/21/20 15:00 26 Mechanical Ventilator 100 03/21/20 14:30 61 27 118/69 (85) 65 03/21/20 14:00 62 27 121/70 (87) 96 03/21/20 14:00 121/70 03/21/20 14:00 26 Mechanical Ventilator 100 03/21/20 13:30 68 27 127/70 (89) 98 03/21/20 13:00 69 26 109/67 (81) 96 03/21/20 13:00 109/67 03/21/20 13:00 26 Mechanical Ventilator 100 03/21/20 12:30 75 26 123/70 (87) 93 03/21/20 12:22 20 Mechanical Ventilator 100 03/21/20 12:00 76 28 119/72 (88) 93 03/21/20 12:00 100 03/21/20 12:00 119/72 03/21/20 12:00 26 Mechanical Ventilator 100 03/21/20 12:00 Mechanical Ventilator Mechanical Ventilator 03/21/20 12:00 62 03/21/20 11:45 129/74 03/21/20 11:30 131/75 03/21/20 11:30 60 28 131/75 (93) 92 03/21/20 11:15 133/77 03/21/20 11:14 58 28 100 03/21/20 11:00 59 28 118/70 (86) 90 03/21/20 11:00 118/70 03/21/20 11:00 26 Mechanical Ventilator 100 03/21/20 10:30 66 25 128/74 (92) 90 03/21/20 10:00 60 26 124/71 (88) 97 03/21/20 10:00 150/100 03/21/20 10:00 26 Mechanical Ventilator 100 03/21/20 09:30 62 26 121/73 (89) 96 03/21/20 09:00 64 26 112/67 (82) 97 03/21/20 09:00 118/70 03/21/20 09:00 26 Mechanical Ventilator 100 03/21/20 08:30 68 26 112/66 (81) 95 03/21/20 08:00 100 03/21/20 08:00 97.4 71 26 114/71 (85) 99 03/21/20 08:00 Mechanical Ventilator Mechanical Ventilator 03/21/20 08:00 70 03/21/20 08:00 112/69 03/21/20 08:00 26 Mechanical Ventilator 100 03/21/20 07:18 69 26 100 03/21/20 07:00 123/70 03/21/20 07:00 26 Mechanical Ventilator 100 03/21/20 07:00 61 26 123/70 (87) 97 03/21/20 06:30 62 26 129/75 (93) 98 03/21/20 06:00 59 26 127/73 (91) 99 03/21/20 06:00 127/73 03/21/20 06:00 26 Mechanical Ventilator 100 03/21/20 05:30 57 26 126/77 (93) 99 03/21/20 05:03 126/76 03/21/20 05:02 28 Mechanical Ventilator 100 03/21/20 05:00 126/76 03/21/20 05:00 28 Mechanical Ventilator 100 03/21/20 05:00 58 26 126/76 (93) 97 03/21/20 04:30 97.6 60 26 118/71 (87) 99 03/21/20 04:00 100 03/21/20 04:00 Mechanical Ventilator Mechanical Ventilator 03/21/20 04:00 109/69 03/21/20 04:00 26 Mechanical Ventilator 100 03/21/20 04:00 66 26 109/69 (82) 95 03/21/20 04:00 62 03/21/20 03:30 63 31 105/64 (78) 99 03/21/20 03:00 64 28 102/61 (75) 98 03/21/20 03:00 102/61 03/21/20 03:00 28 Mechanical Ventilator 100 03/21/20 02:36 81 28 100 03/21/20 02:30 72 28 104/64 (77) 97 03/21/20 02:00 68 27 106/63 (77) 99 03/21/20 02:00 106/63 03/21/20 02:00 27 Mechanical Ventilator 100 03/21/20 01:30 65 27 112/65 (81) 99 03/21/20 01:00 63 32 118/69 (85) 99 03/21/20 01:00 118/69 03/21/20 01:00 32 Mechanical Ventilator 100 03/21/20 00:44 78 26 100 03/21/20 00:30 61 32 120/70 (87) 99 03/21/20 00:00 Mechanical Ventilator Mechanical Ventilator 03/21/20 00:00 63 03/21/20 00:00 125/73 03/21/20 00:00 26 Mechanical Ventilator 100 03/21/20 00:00 97.9 64 26 125/73 (90) 98 03/20/20 23:30 63 28 123/73 (90) 98 03/20/20 23:00 63 26 125/70 (88) 97 03/20/20 23:00 125/70 03/20/20 23:00 26 Mechanical Ventilator 100 03/20/20 22:44 71 27 100 03/20/20 22:30 59 28 120/72 (88) 99 03/20/20 22:17 28 Mechanical Ventilator 100 03/20/20 22:00 110/68 03/20/20 22:00 26 Mechanical Ventilator 100 03/20/20 22:00 59 26 110/68 (82) 99 03/20/20 21:30 62 55 106/65 (79) 99 03/20/20 21:02 68 26 100 03/20/20 21:00 63 50 100/63 (75) 99 03/20/20 21:00 100/63 03/20/20 21:00 26 Mechanical Ventilator 100 03/20/20 20:30 68 48 95/60 (72) 98 03/20/20 20:00 72 03/20/20 20:00 91/61 03/20/20 20:00 28 Mechanical Ventilator 100 03/20/20 20:00 Mechanical Ventilator Mechanical Ventilator 03/20/20 20:00 100 03/20/20 20:00 98.6 72 48 91/61 (71) 86 03/20/20 19:30 73 42 90/57 (68) 91 03/20/20 19:20 69 26 100 03/20/20 19:15 74 50 91/56 (68) 93 03/20/20 19:00 91/56 03/20/20 19:00 26 Mechanical Ventilator 100 03/20/20 19:00 75 53 91/59 (70) 95 03/20/20 18:45 76 51 92/59 (70) 94 03/20/20 18:30 76 51 90/57 (68) 93 03/20/20 18:23 76 49 85/53 (64) 93 03/20/20 18:15 74 34 79/65 (70) 85 03/20/20 18:00 67 26 102/67 (79) 100 03/20/20 18:00 85/53 03/20/20 18:00 26 Mechanical Ventilator 100 03/20/20 17:45 65 26 104/64 (77) 100 03/20/20 17:30 63 26 101/66 (78) 100 03/20/20 17:15 63 26 100/63 (75) 100 03/20/20 17:00 100/63 03/20/20 17:00 26 Mechanical Ventilator 100 03/20/20 17:00 63 26 98/65 (76) 100 03/20/20 16:58 64 26 96 Mechanical Ventilator 100 03/20/20 16:45 64 26 97/62 (74) 99 03/20/20 16:30 64 26 97/61 (73) 97 03/20/20 16:19 26 Mechanical Ventilator 100 03/20/20 16:18 26 Mechanical Ventilator 100 03/20/20 16:15 66 26 93/57 (69) 91 03/20/20 16:05 26 Mechanical Ventilator 100 03/20/20 16:00 Mechanical Ventilator Mechanical Ventilator 03/20/20 16:00 93/57 03/20/20 16:00 26 Mechanical Ventilator 100 03/20/20 16:00 97.7 68 26 97/54 (68) 94 03/20/20 16:00 69 03/20/20 15:55 26 Mechanical Ventilator 100 03/20/20 15:50 26 Mechanical Ventilator 100 03/20/20 15:45 26 Mechanical Ventilator 100 03/20/20 15:45 71 26 96/53 (67) 80 03/20/20 15:40 26 Mechanical Ventilator 100 03/20/20 15:35 26 Mechanical Ventilator 100 03/20/20 15:30 26 Mechanical Ventilator 100 03/20/20 15:30 68 26 41/17 (25) 99 03/20/20 15:25 26 Mechanical Ventilator 100 03/20/20 15:20 26 Mechanical Ventilator 100 03/20/20 15:15 70 26 95/54 (68) 99 03/20/20 15:15 26 Mechanical Ventilator 100 03/20/20 15:10 26 Mechanical Ventilator 100 03/20/20 15:07 64 26 100 5/4/20 15:05 26 Mechanical Ventilator 100 03/20/20 15:00 74 26 91/59 (70) 98 03/20/20 15:00 95/53 03/20/20 15:00 26 Mechanical Ventilator 100 03/20/20 14:45 26 Mechanical Ventilator 100 03/20/20 14:45 76 26 94/55 (68) 100 03/20/20 14:30 76 25 92/56 (68) 100 03/20/20 14:30 25 Mechanical Ventilator 100 03/20/20 14:15 102 23 105/61 (76) 94 03/20/20 14:15 23 Mechanical Ventilator 100 03/20/20 14:00 110/73 03/20/20 14:00 22 Mechanical Ventilator 100 03/20/20 14:00 106 26 123/68 (86) 88 03/20/20 14:00 100 03/20/20 13:54 104 24 119/74 (89) 98 03/20/20 13:45 85 22 112/69 (83) 100 03/20/20 13:45 22 Mechanical Ventilator 100 03/20/20 13:30 23 Mechanical Ventilator 100 03/20/20 13:30 79 23 90/54 (66) 100 03/20/20 13:15 100 18 114/71 (85) 87 03/20/20 13:15 20 Mechanical Ventilator 100 03/20/20 13:00 100 03/20/20 13:00 114/71 03/20/20 13:00 20 Mechanical Ventilator 100 03/20/20 13:00 102 24 125/75 (92) 86 03/20/20 12:45 101 23 139/88 (105) 94 03/20/20 12:45 24 Mechanical Ventilator 100 03/20/20 12:30 99 24 124/75 (91) 83 03/20/20 12:30 23 Mechanical Ventilator 100 03/20/20 12:15 97 22 152/80 (104) 89 03/20/20 12:15 21 Mechanical Ventilator 100 03/20/20 12:00 98.8 93 26 137/100 (112) 93 03/20/20 12:00 82 03/20/20 12:00 100 03/20/20 12:00 152/80 03/20/20 12:00 152/80 03/20/20 12:00 23 Mechanical Ventilator 100 5/4/20 12:00 Mechanical Ventilator Mechanical Ventilator Intake and Output 03/21/20 03/22/20 19:00 07:00 Intake Total 1496.250 ml 1024.841 ml Output Total 1275 ml 1175 ml Balance 221.250 ml -150.159 ml Free Water 90 ml 60 ml IV Total 866.250 ml 424.841 ml Tube Feeding 540 ml 540 ml Output Urine Total 1275 ml 1175 ml Labs Test 03/19/20 15:00 03/19/20 18:30 03/20/20 05:37 03/20/20 08:24 Arterial Blood pH 7.406 (7.350-7.450) 7.340 (7.350-7.450) 7.296 (7.350-7.450) Arterial Blood Partial Pressure CO2 41.1 mmHg (35.0-45.0) 58.5 mmHg (35.0-45.0) 51.5 mmHg (35.0-45.0) Arterial Blood Partial Pressure O2 50.2 mmHg (75.0-100.0) 62.5 mmHg (75.0-100.0) 65.7 mmHg (75.0-100.0) Arterial Blood HCO3 25.2 mmol/L (22.0-26.0) 30.9 mmol/L (22.0-26.0) 24.5 mmol/L (22.0-26.0) Arterial Blood Oxygen Saturation 85.6 % (95-100) 90.1 % (95-100) 89.8 % (95-100) Arterial Blood Base Excess 0.5 (-2-2) 4.1 (-2-2) -2.3 (-2-2) Joaquin Test Positive Positive N/a White Blood Count 11.7 K/UL (4.8-10.8) Red Blood Count 3.03 M/UL (4.20-5.40) Hemoglobin 10.1 G/DL (12.0-16.0) Hematocrit 30.7 % (37.0-47.0) Mean Corpuscular Volume 101 FL (80-99) Mean Corpuscular Hemoglobin 33.4 PG (27.0-31.0) Mean Corpuscular Hemoglobin Concent 32.9 G/DL (32.0-36.0) Red Cell Distribution Width 17.3 % (11.6-14.8) Platelet Count 162 K/UL (150-450) Mean Platelet Volume 5.8 FL (6.5-10.1) Neutrophils (%) (Auto) 77.5 % (45.0-75.0) Lymphocytes (%) (Auto) 10.6 % (20.0-45.0) Monocytes (%) (Auto) 11.0 % (1.0-10.0) Eosinophils (%) (Auto) 0.0 % (0.0-3.0) Basophils (%) (Auto) 0.8 % (0.0-2.0) D-Dimer 9.71 mg/L FEU (0.00-0.49) Sodium Level 123 MMOL/L (136-145) Potassium Level 5.0 MMOL/L (3.5-5.1) Chloride Level 90 MMOL/L (98-107) Carbon Dioxide Level 28 MMOL/L (21-32) Anion Gap 5 mmol/L (5-15) Blood Urea Nitrogen 20 mg/dL (7-18) Creatinine 0.8 MG/DL (0.55-1.30) Estimat Glomerular Filtration Rate > 60 mL/min (>60) Glucose Level 193 MG/DL (74-106) Hemoglobin A1c 5.4 % (4.3-6.0) Uric Acid 4.5 MG/DL (2.6-7.2) Calcium Level 7.9 MG/DL (8.5-10.1) Phosphorus Level 3.4 MG/DL (2.5-4.9) Magnesium Level 2.1 MG/DL (1.8-2.4) Total Bilirubin 2.1 MG/DL (0.2-1.0) Direct Bilirubin 1.1 MG/DL (0.0-0.3) Gamma Glutamyl Transpeptidase 106 U/L (5-85) Aspartate Amino Transf (AST/SGOT) 96 U/L (15-37) Alanine Aminotransferase (ALT/SGPT) 25 U/L (12-78) Alkaline Phosphatase 142 U/L (46-116) Ammonia 116 umol/L (11-32) Lactate Dehydrogenase 625 U/L (81-234) Troponin I 0.409 ng/mL (0.000-0.056) C-Reactive Protein, Quantitative 8.8 mg/dL (0.00-0.90) Pro-B-Type Natriuretic Peptide > 71448 pg/mL (0-125) Total Protein 9.4 G/DL (6.4-8.2) Albumin 2.4 G/DL (3.4-5.0) Globulin 7.0 g/dL Albumin/Globulin Ratio 0.3 (1.0-2.7) Triglycerides Level 284 MG/DL (30-150) Cholesterol Level 74 MG/DL (< 200) LDL Cholesterol 52 mg/dL (<100) HDL Cholesterol 8 MG/DL (40-60) Cholesterol/HDL Ratio 9.3 (3.3-4.4) Thyroid Stimulating Hormone (TSH) 4.026 uiU/mL (0.358-3.740) Test 03/20/20 15:43 03/21/20 05:18 03/21/20 21:30 03/22/20 04:00 Arterial Blood pH 7.287 (7.350-7.450) 7.325 (7.350-7.450) Arterial Blood Partial Pressure CO2 56.5 mmHg (35.0-45.0) 58.3 mmHg (35.0-45.0) Arterial Blood Partial Pressure O2 76.9 mmHg (75.0-100.0) 148.4 mmHg (75.0-100.0) Arterial Blood HCO3 26.4 mmol/L (22.0-26.0) 29.7 mmol/L (22.0-26.0) Arterial Blood Oxygen Saturation 93.2 % (95-100) 98.6 % (95-100) Arterial Blood Base Excess -0.6 (-2-2) 2.7 (-2-2) Joaquin Test Positive Positive White Blood Count 11.2 K/UL (4.8-10.8) 10.8 K/UL (4.8-10.8) Red Blood Count 2.76 M/UL (4.20-5.40) 2.82 M/UL (4.20-5.40) Hemoglobin 9.2 G/DL (12.0-16.0) 9.5 G/DL (12.0-16.0) Hematocrit 27.9 % (37.0-47.0) 28.9 % (37.0-47.0) Mean Corpuscular Volume 101 FL (80-99) 103 FL (80-99) Mean Corpuscular Hemoglobin 33.5 PG (27.0-31.0) 33.6 PG (27.0-31.0) Mean Corpuscular Hemoglobin Concent 33.1 G/DL (32.0-36.0) 32.8 G/DL (32.0-36.0) Red Cell Distribution Width 17.3 % (11.6-14.8) 17.0 % (11.6-14.8) Platelet Count 161 K/UL (150-450) 149 K/UL (150-450) Mean Platelet Volume 7.4 FL (6.5-10.1) 6.2 FL (6.5-10.1) Neutrophils (%) (Auto) 79.2 % (45.0-75.0) 81.6 % (45.0-75.0) Lymphocytes (%) (Auto) 5.6 % (20.0-45.0) 8.2 % (20.0-45.0) Monocytes (%) (Auto) 14.4 % (1.0-10.0) 9.1 % (1.0-10.0) Eosinophils (%) (Auto) 0.0 % (0.0-3.0) 0.0 % (0.0-3.0) Basophils (%) (Auto) 0.9 % (0.0-2.0) 1.0 % (0.0-2.0) Sodium Level 134 MMOL/L (136-145) 138 MMOL/L (136-145) Potassium Level 4.5 MMOL/L (3.5-5.1) 4.1 MMOL/L (3.5-5.1) Chloride Level 100 MMOL/L (98-107) 102 MMOL/L (98-107) Carbon Dioxide Level 30 MMOL/L (21-32) 34 MMOL/L (21-32) Anion Gap 4 mmol/L (5-15) 2 mmol/L (5-15) Blood Urea Nitrogen 22 mg/dL (7-18) 25 mg/dL (7-18) Creatinine 0.8 MG/DL (0.55-1.30) 0.8 MG/DL (0.55-1.30) Estimat Glomerular Filtration Rate > 60 mL/min (>60) > 60 mL/min (>60) Glucose Level 191 MG/DL (74-106) 208 MG/DL (74-106) Uric Acid 4.5 MG/DL (2.6-7.2) Calcium Level 8.1 MG/DL (8.5-10.1) 8.6 MG/DL (8.5-10.1) Phosphorus Level 3.2 MG/DL (2.5-4.9) 2.7 MG/DL (2.5-4.9) Magnesium Level 2.3 MG/DL (1.8-2.4) 2.4 MG/DL (1.8-2.4) Iron Level 126 ug/dL (50-175) Total Iron Binding Capacity 138 ug/dL (250-450) Percent Iron Saturation 91 % (15-50) Unsaturated Iron Binding 12 ug/dL (112-346) Ferritin 1310 NG/ML (8-388) Total Bilirubin 1.6 MG/DL (0.2-1.0) 1.6 MG/DL (0.2-1.0) Direct Bilirubin 0.8 MG/DL (0.0-0.3) 0.8 MG/DL (0.0-0.3) Aspartate Amino Transf (AST/SGOT) 66 U/L (15-37) 83 U/L (15-37) Alanine Aminotransferase (ALT/SGPT) 26 U/L (12-78) 36 U/L (12-78) Alkaline Phosphatase 122 U/L (46-116) 183 U/L (46-116) C-Reactive Protein, Quantitative 7.5 mg/dL (0.00-0.90) 6.2 mg/dL (0.00-0.90) Pro-B-Type Natriuretic Peptide 46520 pg/mL (0-125) 94968 pg/mL (0-125) Total Protein 8.4 G/DL (6.4-8.2) 8.5 G/DL (6.4-8.2) Albumin 2.4 G/DL (3.4-5.0) 2.5 G/DL (3.4-5.0) Globulin 6.0 g/dL 6.0 g/dL Albumin/Globulin Ratio 0.4 (1.0-2.7) 0.4 (1.0-2.7) Vitamin B12 Level 1597 PG/ML (193-986) Folate 10.0 NG/ML (8.6-58.9) Ammonia 104 umol/L (11-32) Test 03/22/20 06:55 Arterial Blood pH 7.295 (7.350-7.450) Arterial Blood Partial Pressure CO2 68.5 mmHg (35.0-45.0) Arterial Blood Partial Pressure O2 117.9 mmHg (75.0-100.0) Arterial Blood HCO3 32.6 mmol/L (22.0-26.0) Arterial Blood Oxygen Saturation 99.1 % (95-100) Arterial Blood Base Excess 4.6 (-2-2) Joaquin Test Positive Height (Feet): 5 Height (Inches): 1.00 Weight (Pounds): 237 Objective Physical Exam: Vitals: reviewed General: NAD HEENT: nc, at Neck: supple Chest: crackles b/l, mech breath sounds ++intubated Cardiovascular: RRR, no s3, s4 EXT ++ Significant edema and erythema bilateral lower extremity, patient also has blistering on both feet given the edema, whittish overcrust/crusting++ Neurologic: sedated Skin: other - As above Brett Mcclain MD March 22, 2020 11:51
--- NOTE | 2020-03-22 12:44 | Nephrology Progress Note ---
Assessment/Plan Problem List: (1) Electrolyte imbalance Assessment: Hyponatremia resolved -hyperkalemia resolved (2) COVID-19 (3) Respiratory failure with hypoxia (4) Cellulitis (5) Hypothyroid Assessment Hyponatremia. Serum sodium started drifting down from March 16. Hyperkalemia. Septic shock. Acute respiratory failure. Respiratory failure and COVID pneumonia. 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 Urine sodium is below 20 Serum ammonia is elevated will start lactulose Patient on Solu-Medrol and Solu-Cortef will discontinue Solu-Cortef Will try to gently diurese for severe edema meanwhile administering albumin 25% as needed Monitor electrolytes and renal parameters We will add midodrine 10 mg 3 times a day via NG tube Decrease dosage of IV Synthroid Discussed with DAO Starr Subjective ROS Limited/Unobtainable: Yes Objective Objective Last 24 Hour Vital Signs Date Time Temp Pulse Resp B/P (MAP) Pulse Ox O2 Delivery O2 Flow Rate FiO2 03/22/20 12:26 84 26 80 03/22/20 12:00 96.8 64 27 152/77 (102) 98 03/22/20 12:00 Mechanical Ventilator Mechanical Ventilator 03/22/20 12:00 72 03/22/20 11:30 64 26 150/78 (102) 96 03/22/20 11:17 141/73 03/22/20 11:00 65 26 141/82 (101) 96 03/22/20 10:30 66 26 150/85 (106) 99 03/22/20 10:00 67 25 142/84 (103) 98 03/22/20 10:00 90 03/22/20 09:30 79 26 90 03/22/20 09:30 80 25 146/82 (103) 93 03/22/20 09:00 69 26 153/88 (109) 96 03/22/20 08:30 73 33 150/81 (104) 91 03/22/20 08:00 Mechanical Ventilator Mechanical Ventilator 03/22/20 08:00 100 03/22/20 08:00 101 03/22/20 08:00 96.8 73 26 153/86 (108) 97 03/22/20 07:30 75 27 152/86 (108) 95 03/22/20 07:00 77 24 146/76 (99) 94 03/22/20 06:40 76 28 100 03/22/20 06:00 130/76 03/22/20 06:00 26 Mechanical Ventilator 100 03/22/20 05:45 76 26 138/72 (94) 95 03/22/20 05:30 78 25 134/70 (91) 96 03/22/20 05:00 92/48 03/22/20 05:00 26 Mechanical Ventilator 100 03/22/20 05:00 86 25 102/52 (69) 95 03/22/20 04:58 68 29 100 03/22/20 04:30 111 21 140/80 (100) 97 03/22/20 04:21 26 Mechanical Ventilator 100 03/22/20 04:00 112 03/22/20 04:00 100 03/22/20 04:00 98.9 111 19 140/81 (100) 99 03/22/20 04:00 100/49 03/22/20 04:00 26 Mechanical Ventilator 100 03/22/20 04:00 Mechanical Ventilator Mechanical Ventilator 03/22/20 03:30 108 26 131/72 (91) 99 03/22/20 03:00 109 24 145/86 (105) 99 03/22/20 03:00 120/60 03/22/20 03:00 26 Mechanical Ventilator 100 03/22/20 02:30 108 26 151/78 (102) 99 03/22/20 02:00 104 27 144/74 (97) 99 03/22/20 02:00 135/75 03/22/20 02:00 26 Mechanical Ventilator 100 03/22/20 01:30 101 23 147/80 (102) 99 03/22/20 01:10 69 27 100 03/22/20 01:00 105/75 03/22/20 01:00 26 Mechanical Ventilator 100 03/22/20 01:00 95 27 146/80 (102) 100 03/22/20 00:30 72 26 145/73 (97) 100 03/22/20 00:15 92 24 148/91 (110) 99 03/22/20 00:00 Mechanical Ventilator Mechanical Ventilator 03/22/20 00:00 145/73 03/22/20 00:00 26 Mechanical Ventilator 100 03/22/20 00:00 100 03/22/20 00:00 97.1 88 23 153/93 (113) 100 03/21/20 23:45 97 23 144/90 (108) 99 03/21/20 23:30 96 21 154/83 (106) 98 20 23:25 68 03/21/20 23:02 67 28 100 03/21/20 23:00 150/70 03/21/20 23:00 26 Mechanical Ventilator 100 03/21/20 23:00 67 29 150/88 (108) 99 03/21/20 22:30 73 26 136/90 (105) 100 03/21/20 22:00 145/69 03/21/20 22:00 26 Mechanical Ventilator 100 03/21/20 22:00 75 25 163/88 (113) 99 03/21/20 21:30 70 33 168/87 (114) 99 03/21/20 21:00 150/88 03/21/20 21:00 120/68 03/21/20 21:00 150/88 03/21/20 21:00 26 Mechanical Ventilator 100 03/21/20 21:00 54 24 110/64 (79) 100 03/21/20 20:45 58 32 110/74 (86) 99 03/21/20 20:30 66 29 104/63 (77) 88 03/21/20 20:00 100 03/21/20 20:00 Mechanical Ventilator Mechanical Ventilator 03/21/20 20:00 49 03/21/20 20:00 100/58 03/21/20 20:00 26 Mechanical Ventilator 100 03/21/20 20:00 98.5 58 27 122/74 (90) 98 20 19:30 120/68 03/21/20 19:30 59 28 121/65 (83) 98 20 19:00 67 25 120/68 (85) 97 03/21/20 19:00 109/61 03/21/20 19:00 26 Mechanical Ventilator 100 03/21/20 18:59 61 26 100 20 18:44 26 Mechanical Ventilator 100 03/21/20 18:43 26 Mechanical Ventilator 100 03/21/20 18:00 58 26 111/62 (78) 98 20 18:00 122/69 03/21/20 18:00 26 Mechanical Ventilator 100 03/21/20 17:30 61 27 129/70 (89) 98 03/21/20 17:00 60 27 131/75 (93) 95 03/21/20 17:00 131/75 03/21/20 17:00 26 Mechanical Ventilator 100 03/21/20 16:30 61 28 138/73 (94) 99 03/21/20 16:00 Mechanical Ventilator Mechanical Ventilator 03/21/20 16:00 62 03/21/20 16:00 100 03/21/20 16:00 57 26 132/70 (90) 99 03/21/20 16:00 132/70 03/21/20 16:00 26 Mechanical Ventilator 100 03/21/20 15:30 59 28 138/80 (99) 96 03/21/20 15:09 58 26 100 03/21/20 15:00 56 25 122/74 (90) 96 03/21/20 15:00 122/74 03/21/20 15:00 26 Mechanical Ventilator 100 03/21/20 14:30 61 27 118/69 (85) 65 03/21/20 14:00 62 27 121/70 (87) 96 03/21/20 14:00 121/70 03/21/20 14:00 26 Mechanical Ventilator 100 03/21/20 13:30 68 27 127/70 (89) 98 03/21/20 13:00 69 26 109/67 (81) 96 03/21/20 13:00 109/67 03/21/20 13:00 26 Mechanical Ventilator 100 Intake and Output 03/21/20 03/22/20 19:00 07:00 Intake Total 1496.250 ml 1024.841 ml Output Total 1275 ml 1175 ml Balance 221.250 ml -150.159 ml Free Water 90 ml 60 ml IV Total 866.250 ml 424.841 ml Tube Feeding 540 ml 540 ml Output Urine Total 1275 ml 1175 ml Laboratory Tests 03/21/20 21:30: Arterial Blood pH 7.325L, Arterial Blood Partial Pressure CO2 58.3*H, Arterial Blood Partial Pressure O2 148.4H, Arterial Blood HCO3 29.7H, Arterial Blood Oxygen Saturation 98.6, Arterial Blood Base Excess 2.7H, Joaquin Test Positive 03/22/20 04:00: White Blood Count 10.8, Red Blood Count 2.82L, Hemoglobin 9.5L, Hematocrit 28.9L , Mean Corpuscular Volume 103H, Mean Corpuscular Hemoglobin 33.6H, Mean Corpuscular Hemoglobin Concent 32.8, Red Cell Distribution Width 17.0H, Platelet Count 149L, Mean Platelet Volume 6.2L, Neutrophils (%) (Auto) 81.6H, Lymphocytes (%) (Auto) 8.2L, Monocytes (%) (Auto) 9.1, Eosinophils (%) (Auto) 0.0, Basophils (%) (Auto) 1.0, Sodium Level 138, Potassium Level 4.1, Chloride Level 102, Carbon Dioxide Level 34H, Anion Gap 2L, Blood Urea Nitrogen 25H, Creatinine 0.8, Estimat Glomerular Filtration Rate > 60, Glucose Level 208H, Calcium Level 8.6, Phosphorus Level 2.7, Magnesium Level 2.4, Total Bilirubin 1.6H, Direct Bilirubin 0.8H, Aspartate Amino Transf (AST/SGOT) 83H, Alanine Aminotransferase (ALT/SGPT) 36, Alkaline Phosphatase 183H, Ammonia 104H, C- Reactive Protein, Quantitative 6.2H, Pro-B-Type Natriuretic Peptide 14626F, Total Protein 8.5H, Albumin 2.5L, Globulin 6.0, Albumin/Globulin Ratio 0.4L 03/22/20 06:55: Arterial Blood pH 7.295L, Arterial Blood Partial Pressure CO2 68.5*H, Arterial Blood Partial Pressure O2 117.9H, Arterial Blood HCO3 32.6H, Arterial Blood Oxygen Saturation 99.1, Arterial Blood Base Excess 4.6H, Joaquin Test Positive Height (Feet): 5 Height (Inches): 1.00 Weight (Pounds): 237 General Appearance: no apparent distress EENT: other - Remains intubated on ventilator Cardiovascular: other - Variable rate Respiratory/Chest: decreased breath sounds Cristhian Granados MD March 22, 2020 12:44
[2020-03-22] MEDS: Lactulose 20gm/30ml UDC ORAL SCH ×2 (13:11→17:09)
[2020-03-22] MEDS: propofoL 1,000mg/100ml 100 ML IV SCH (17:12)
--- NOTE | 2020-03-22 17:37 | General Progress Note ---
Assessment/Plan Problem List: (1) Cellulitis ICD Codes: L03.90 - Cellulitis, unspecified SNOMED: 236562549 Qualifiers: Qualified Codes: L03.119 - Cellulitis of unspecified part of limb Status: progressing, unchanged Assessment/Plan: consulted dr hall for rx of elevated ammonia lyte abnormality sepsis anemia cirrhosis reviewed chart and labs elevated trop 0.[address] [place] per [place] Subjective ROS Limited/Unobtainable: Yes Allergies: Coded Allergies: No Known Allergies (Unverified , 02/29/20) Objective Last 24 Hour Vital Signs Date Time Temp Pulse Resp B/P (MAP) Pulse Ox O2 Delivery O2 Flow Rate FiO2 03/22/20 17:12 26 133/70 Mechanical Ventilator 03/22/20 16:00 70 03/22/20 16:00 26 Mechanical Ventilator 03/22/20 16:00 Mechanical Ventilator Mechanical Ventilator 03/22/20 15:59 26 Mechanical Ventilator 03/22/20 15:00 118/68 03/22/20 15:00 26 Mechanical Ventilator 03/22/20 14:00 61 26 150/80 (103) 96 03/22/20 14:00 139/80 03/22/20 14:00 26 Mechanical Ventilator 03/22/20 13:09 80 03/22/20 13:00 144/77 03/22/20 13:00 26 Mechanical Ventilator 03/22/20 13:00 65 26 149/82 (104) 96 03/22/20 12:30 66 25 139/80 (99) 96 03/22/20 12:26 84 26 80 03/22/20 12:00 96.8 64 27 152/77 (102) 98 03/22/20 12:00 Mechanical Ventilator Mechanical Ventilator 03/22/20 12:00 147/78 03/22/20 12:00 26 Mechanical Ventilator 03/22/20 12:00 72 03/22/20 11:30 64 26 150/78 (102) 96 03/22/20 11:17 141/73 03/22/20 11:00 65 26 141/82 (101) 96 03/22/20 11:00 118/70 03/22/20 11:00 25 Mechanical Ventilator 03/22/20 10:30 66 26 150/85 (106) 99 03/22/20 10:00 67 25 142/84 (103) 98 03/22/20 10:00 90 03/22/20 10:00 137/83 03/22/20 10:00 25 Mechanical Ventilator 03/22/20 09:30 79 26 90 03/22/20 09:30 80 25 146/82 (103) 93 03/22/20 09:00 69 26 153/88 (109) 96 03/22/20 09:00 152/80 03/22/20 09:00 26 Mechanical Ventilator 03/22/20 08:30 73 33 150/81 (104) 91 03/22/20 08:00 Mechanical Ventilator Mechanical Ventilator 03/22/20 08:00 100 03/22/20 08:00 151/80 03/22/20 08:00 26 Mechanical Ventilator 03/22/20 08:00 101 03/22/20 08:00 96.8 73 26 153/86 (108) 97 03/22/20 07:30 75 27 152/86 (108) 95 03/22/20 07:00 145/80 03/22/20 07:00 25 Mechanical Ventilator 03/22/20 07:00 77 24 146/76 (99) 94 03/22/20 06:40 76 28 100 03/22/20 06:00 130/76 03/22/20 06:00 26 Mechanical Ventilator 100 03/22/20 05:45 76 26 138/72 (94) 95 03/22/20 05:30 78 25 134/70 (91) 96 03/22/20 05:00 92/48 03/22/20 05:00 26 Mechanical Ventilator 100 03/22/20 05:00 86 25 102/52 (69) 95 03/22/20 04:58 68 29 100 03/22/20 04:30 111 21 140/80 (100) 97 03/22/20 04:21 26 Mechanical Ventilator 100 03/22/20 04:00 112 03/22/20 04:00 100 03/22/20 04:00 98.9 111 19 140/81 (100) 99 03/22/20 04:00 100/49 03/22/20 04:00 26 Mechanical Ventilator 100 03/22/20 04:00 Mechanical Ventilator Mechanical Ventilator 03/22/20 03:30 108 26 131/72 (91) 99 03/22/20 03:00 109 24 145/86 (105) 99 03/22/20 03:00 120/60 03/22/20 03:00 26 Mechanical Ventilator 100 03/22/20 02:30 108 26 151/78 (102) 99 03/22/20 02:00 104 27 144/74 (97) 99 03/22/20 02:00 135/75 03/22/20 02:00 26 Mechanical Ventilator 100 03/22/20 01:30 101 23 147/80 (102) 99 03/22/20 01:10 69 27 100 03/22/20 01:00 105/75 03/22/20 01:00 26 Mechanical Ventilator 100 03/22/20 01:00 95 27 146/80 (102) 100 03/22/20 00:30 72 26 145/73 (97) 100 03/22/20 00:15 92 24 148/91 (110) 99 03/22/20 00:00 Mechanical Ventilator Mechanical Ventilator 03/22/20 00:00 145/73 03/22/20 00:00 26 Mechanical Ventilator 100 03/22/20 00:00 100 03/22/20 00:00 97.1 88 23 153/93 (113) 100 03/21/20 23:45 97 23 144/90 (108) 99 03/21/20 23:30 96 21 154/83 (106) 98 03/21/20 23:25 68 03/21/20 23:02 67 28 100 03/21/20 23:00 150/70 03/21/20 23:00 26 Mechanical Ventilator 100 03/21/20 23:00 67 29 150/88 (108) 99 03/21/20 22:30 73 26 136/90 (105) 100 03/21/20 22:00 145/69 03/21/20 22:00 26 Mechanical Ventilator 100 03/21/20 22:00 75 25 163/88 (113) 99 03/21/20 21:30 70 33 168/87 (114) 99 03/21/20 21:00 150/88 03/21/20 21:00 120/68 03/21/20 21:00 150/88 03/21/20 21:00 26 Mechanical Ventilator 100 03/21/20 21:00 54 24 110/64 (79) 100 03/21/20 20:45 58 32 110/74 (86) 99 03/21/20 20:30 66 29 104/63 (77) 88 03/21/20 20:00 100 03/21/20 20:00 Mechanical Ventilator Mechanical Ventilator 03/21/20 20:00 49 03/21/20 20:00 100/58 03/21/20 20:00 26 Mechanical Ventilator 100 03/21/20 20:00 98.5 58 27 122/74 (90) 98 03/21/20 19:30 120/68 03/21/20 19:30 59 28 121/65 (83) 98 03/21/20 19:00 67 25 120/68 (85) 97 03/21/20 19:00 109/61 03/21/20 19:00 26 Mechanical Ventilator 100 03/21/20 18:59 61 26 100 03/21/20 18:44 26 Mechanical Ventilator 100 03/21/20 18:43 26 Mechanical Ventilator 100 03/21/20 18:00 58 26 111/62 (78) 98 03/21/20 18:00 122/69 03/21/20 18:00 26 Mechanical Ventilator 100 Intake and Output 03/21/20 03/22/20 19:00 07:00 Intake Total 1496.250 ml 1069.233 ml Output Total 1275 ml 1175 ml Balance 221.250 ml -105.767 ml Free Water 90 ml 60 ml IV Total 866.250 ml 469.233 ml Tube Feeding 540 ml 540 ml Output Urine Total 1275 ml 1175 ml Laboratory Tests 03/21/20 21:30: Arterial Blood pH 7.325L, Arterial Blood Partial Pressure CO2 58.3*H, Arterial Blood Partial Pressure O2 148.4H, Arterial Blood HCO3 29.7H, Arterial Blood Oxygen Saturation 98.6, Arterial Blood Base Excess 2.7H, Joaquin Test Positive 03/22/20 04:00: White Blood Count 10.8, Red Blood Count 2.82L, Hemoglobin 9.5L, Hematocrit 28.9L , Mean Corpuscular Volume 103H, Mean Corpuscular Hemoglobin 33.6H, Mean Corpuscular Hemoglobin Concent 32.8, Red Cell Distribution Width 17.0H, Platelet Count 149L, Mean Platelet Volume 6.2L, Neutrophils (%) (Auto) 81.6H, Lymphocytes (%) (Auto) 8.2L, Monocytes (%) (Auto) 9.1, Eosinophils (%) (Auto) 0.0, Basophils (%) (Auto) 1.0, Sodium Level 138, Potassium Level 4.1, Chloride Level 102, Carbon Dioxide Level 34H, Anion Gap 2L, Blood Urea Nitrogen 25H, Creatinine 0.8, Estimat Glomerular Filtration Rate > 60, Glucose Level 208H, Calcium Level 8.6, Phosphorus Level 2.7, Magnesium Level 2.4, Total Bilirubin 1.6H, Direct Bilirubin 0.8H, Aspartate Amino Transf (AST/SGOT) 83H, Alanine Aminotransferase (ALT/SGPT) 36, Alkaline Phosphatase 183H, Ammonia 104H, C- Reactive Protein, Quantitative 6.2H, Pro-B-Type Natriuretic Peptide 31079G, Total Protein 8.5H, Albumin 2.5L, Globulin 6.0, Albumin/Globulin Ratio 0.4L 03/22/20 06:55: Arterial Blood pH 7.295L, Arterial Blood Partial Pressure CO2 68.5*H, Arterial Blood Partial Pressure O2 117.9H, Arterial Blood HCO3 32.6H, Arterial Blood Oxygen Saturation 99.1, Arterial Blood Base Excess 4.6H, Joaquin Test Positive Height (Feet): 5 Height (Inches): 1.00 Weight (Pounds): 237 Celso Moreno MD March 22, 2020 17:37
[2020-03-22] MEDS ORDERED: Lactulose 20gm/30ml UDC ORAL SCH (18:00)
--- NOTE | 2020-03-22 18:03 | General Progress Note ---
Assessment/Plan Problem List: (1) Hypothyroid ICD Codes: E03.9 - Hypothyroidism, unspecified SNOMED: 36239726 (2) COVID-19 ICD Codes: U07.1 - COVID-19 SNOMED: 694515330 (3) Respiratory failure with hypoxia ICD Codes: J96.91 - Respiratory failure, unspecified with hypoxia SNOMED: [id number] Qualifiers: Qualified Codes: J96.01 - Acute respiratory failure with hypoxia (4) Respiratory distress ICD Codes: R06.03 - Acute respiratory distress SNOMED: 378038622 (5) Cellulitis ICD Codes: L03.90 - Cellulitis, unspecified SNOMED: 211948204 Qualifiers: Qualified Codes: L03.119 - Cellulitis of unspecified part of limb (6) Macrocytic anemia ICD Codes: D53.9 - Nutritional anemia, unspecified SNOMED: 88968780 Status: progressing, unchanged Assessment/Plan: add Levemir 8 units bid continue Levothyroxine 50 mcg IV daily continue Novolog sliding scale every 6 hours Subjective ROS Limited/Unobtainable: Yes Allergies: Coded Allergies: No Known Allergies (Unverified , 02/29/20) Subjective events noted glucose values are elevated Item Value Date Time Bedside Blood Glucose 227 mg/dl H 03/22/20 1755 Bedside Blood Glucose 256 mg/dl H 03/22/20 1208 Bedside Blood Glucose 208 mg/dl H 03/22/20 0600 Bedside Blood Glucose 211 mg/dl H 03/22/20 0008 Bedside Blood Glucose 224 mg/dl H 03/21/20 1844 Bedside Blood Glucose 199 mg/dl H 03/21/20 1217 Objective Last 24 Hour Vital Signs Date Time Temp Pulse Resp B/P (MAP) Pulse Ox O2 Delivery O2 Flow Rate FiO2 03/22/20 17:30 91 38 132/70 (90) 99 03/22/20 17:12 26 133/70 Mechanical Ventilator 03/22/20 17:00 87 36 133/70 (91) 98 03/22/20 16:30 87 24 130/69 (89) 97 03/22/20 16:00 70 03/22/20 16:00 26 Mechanical Ventilator 03/22/20 16:00 97.4 87 25 123/72 (89) 98 03/22/20 16:00 Mechanical Ventilator Mechanical Ventilator 03/22/20 15:59 26 Mechanical Ventilator 03/22/20 15:30 77 28 108/59 (75) 93 03/22/20 15:12 70 26 80 03/22/20 15:00 68 27 118/69 (85) 96 03/22/20 15:00 118/68 03/22/20 15:00 26 Mechanical Ventilator 03/22/20 14:00 61 26 150/80 (103) 96 03/22/20 14:00 139/80 03/22/20 14:00 26 Mechanical Ventilator 03/22/20 13:09 80 03/22/20 13:00 144/77 03/22/20 13:00 26 Mechanical Ventilator 03/22/20 13:00 65 26 149/82 (104) 96 03/22/20 12:30 66 25 139/80 (99) 96 03/22/20 12:26 84 26 80 03/22/20 12:00 96.8 64 27 152/77 (102) 98 03/22/20 12:00 Mechanical Ventilator Mechanical Ventilator 03/22/20 12:00 147/78 03/22/20 12:00 26 Mechanical Ventilator 03/22/20 12:00 72 03/22/20 11:30 64 26 150/78 (102) 96 03/22/20 11:17 141/73 03/22/20 11:00 65 26 141/82 (101) 96 03/22/20 11:00 118/70 03/22/20 11:00 25 Mechanical Ventilator 03/22/20 10:30 66 26 150/85 (106) 99 03/22/20 10:00 67 25 142/84 (103) 98 03/22/20 10:00 90 03/22/20 10:00 137/83 03/22/20 10:00 25 Mechanical Ventilator 03/22/20 09:30 79 26 90 03/22/20 09:30 80 25 146/82 (103) 93 03/22/20 09:00 69 26 153/88 (109) 96 03/22/20 09:00 152/80 03/22/20 09:00 26 Mechanical Ventilator 03/22/20 08:30 73 33 150/81 (104) 91 03/22/20 08:00 Mechanical Ventilator Mechanical Ventilator 03/22/20 08:00 100 03/22/20 08:00 151/80 03/22/20 08:00 26 Mechanical Ventilator 03/22/20 08:00 101 03/22/20 08:00 96.8 73 26 153/86 (108) 97 03/22/20 07:30 75 27 152/86 (108) 95 03/22/20 07:00 145/80 03/22/20 07:00 25 Mechanical Ventilator 03/22/20 07:00 77 24 146/76 (99) 94 03/22/20 06:40 76 28 100 03/22/20 06:00 130/76 03/22/20 06:00 26 Mechanical Ventilator 100 03/22/20 05:45 76 26 138/72 (94) 95 03/22/20 05:30 78 25 134/70 (91) 96 03/22/20 05:00 92/48 03/22/20 05:00 26 Mechanical Ventilator 100 03/22/20 05:00 86 25 102/52 (69) 95 03/22/20 04:58 68 29 100 03/22/20 04:30 111 21 140/80 (100) 97 03/22/20 04:21 26 Mechanical Ventilator 100 03/22/20 04:00 112 03/22/20 04:00 100 03/22/20 04:00 98.9 111 19 140/81 (100) 99 03/22/20 04:00 100/49 03/22/20 04:00 26 Mechanical Ventilator 100 03/22/20 04:00 Mechanical Ventilator Mechanical Ventilator 03/22/20 03:30 108 26 131/72 (91) 99 03/22/20 03:00 109 24 145/86 (105) 99 03/22/20 03:00 120/60 03/22/20 03:00 26 Mechanical Ventilator 100 03/22/20 02:30 108 26 151/78 (102) 99 03/22/20 02:00 104 27 144/74 (97) 99 03/22/20 02:00 135/75 03/22/20 02:00 26 Mechanical Ventilator 100 03/22/20 01:30 101 23 147/80 (102) 99 03/22/20 01:10 69 27 100 03/22/20 01:00 105/75 03/22/20 01:00 26 Mechanical Ventilator 100 03/22/20 01:00 95 27 146/80 (102) 100 03/22/20 00:30 72 26 145/73 (97) 100 03/22/20 00:15 92 24 148/91 (110) 99 03/22/20 00:00 Mechanical Ventilator Mechanical Ventilator 03/22/20 00:00 145/73 03/22/20 00:00 26 Mechanical Ventilator 100 03/22/20 00:00 100 03/22/20 00:00 97.1 88 23 153/93 (113) 100 03/21/20 23:45 97 23 144/90 (108) 99 03/21/20 23:30 96 21 154/83 (106) 98 03/21/20 23:25 68 03/21/20 23:02 67 28 100 03/21/20 23:00 150/70 03/21/20 23:00 26 Mechanical Ventilator 100 03/21/20 23:00 67 29 150/88 (108) 99 03/21/20 22:30 73 26 136/90 (105) 100 03/21/20 22:00 145/69 03/21/20 22:00 26 Mechanical Ventilator 100 03/21/20 22:00 75 25 163/88 (113) 99 03/21/20 21:30 70 33 168/87 (114) 99 03/21/20 21:00 150/88 03/21/20 21:00 120/68 03/21/20 21:00 150/88 03/21/20 21:00 26 Mechanical Ventilator 100 03/21/20 21:00 54 24 110/64 (79) 100 03/21/20 20:45 58 32 110/74 (86) 99 03/21/20 20:30 66 29 104/63 (77) 88 03/21/20 20:00 100 03/21/20 20:00 Mechanical Ventilator Mechanical Ventilator 03/21/20 20:00 49 20 20:00 100/58 20 20:00 26 Mechanical Ventilator 100 03/21/20 20:00 98.5 58 27 122/74 (90) 98 20 19:30 120/68 20 19:30 59 28 121/65 (83) 98 20 19:00 67 25 120/68 (85) 97 03/21/20 19:00 109/61 03/21/20 19:00 26 Mechanical Ventilator 100 03/21/20 18:59 61 26 100 03/21/20 18:44 26 Mechanical Ventilator 100 03/21/20 18:43 26 Mechanical Ventilator 100 Intake and Output 03/21/20 03/22/20 19:00 07:00 Intake Total 1496.250 ml 1069.233 ml Output Total 1275 ml 1175 ml Balance 221.250 ml -105.767 ml Free Water 90 ml 60 ml IV Total 866.250 ml 469.233 ml Tube Feeding 540 ml 540 ml Output Urine Total 1275 ml 1175 ml Laboratory Tests 03/21/20 21:30: Arterial Blood pH 7.325L, Arterial Blood Partial Pressure CO2 58.3*H, Arterial Blood Partial Pressure O2 148.4H, Arterial Blood HCO3 29.7H, Arterial Blood Oxygen Saturation 98.6, Arterial Blood Base Excess 2.7H, Joaquin Test Positive 03/22/20 04:00: White Blood Count 10.8, Red Blood Count 2.82L, Hemoglobin 9.5L, Hematocrit 28.9L , Mean Corpuscular Volume 103H, Mean Corpuscular Hemoglobin 33.6H, Mean Corpuscular Hemoglobin Concent 32.8, Red Cell Distribution Width 17.0H, Platelet Count 149L, Mean Platelet Volume 6.2L, Neutrophils (%) (Auto) 81.6H, Lymphocytes (%) (Auto) 8.2L, Monocytes (%) (Auto) 9.1, Eosinophils (%) (Auto) 0.0, Basophils (%) (Auto) 1.0, Sodium Level 138, Potassium Level 4.1, Chloride Level 102, Carbon Dioxide Level 34H, Anion Gap 2L, Blood Urea Nitrogen 25H, Creatinine 0.8, Estimat Glomerular Filtration Rate > 60, Glucose Level 208H, Calcium Level 8.6, Phosphorus Level 2.7, Magnesium Level 2.4, Total Bilirubin 1.6H, Direct Bilirubin 0.8H, Aspartate Amino Transf (AST/SGOT) 83H, Alanine Aminotransferase (ALT/SGPT) 36, Alkaline Phosphatase 183H, Ammonia 104H, C- Reactive Protein, Quantitative 6.2H, Pro-B-Type Natriuretic Peptide 18983C, Total Protein 8.5H, Albumin 2.5L, Globulin 6.0, Albumin/Globulin Ratio 0.4L 03/22/20 06:55: Arterial Blood pH 7.295L, Arterial Blood Partial Pressure CO2 68.5*H, Arterial Blood Partial Pressure O2 117.9H, Arterial Blood HCO3 32.6H, Arterial Blood Oxygen Saturation 99.1, Arterial Blood Base Excess 4.6H, Joaquin Test Positive Height (Feet): 5 Height (Inches): 1.00 Weight (Pounds): 237 General Appearance: moderate distress Neck: normal alignment Respiratory/Chest: decreased breath sounds Abdomen: normal bowel sounds Pelvis: normal external exam Objective Current Medications Medications (Trade) Dose Ordered Sig/Dolores Route PRN Reason Start Time Stop Time Status Last Admin Dose Admin Acetaminophen (Tylenol) 650 mg Q4H PRN ORAL Temp >100 03/13/20 14:53 04/12/20 14:52 03/19/20 06:25 Acetaminophen (Tylenol) 650 mg Q4H PRN ORAL Mild Pain (Pain Scale 1-3) 03/13/20 14:53 04/12/20 14:52 03/20/20 04:09 Chlorhexidine Gluconate (Lucretia-Hex 2%) 1 applic DAILY@2000 TOPIC 03/13/20 20:00 06/11/20 19:59 03/21/20 19:54 Dextrose (Dextrose 50%) 25 ml Q30M PRN IV Hypoglycemia 03/16/20 09:30 06/14/20 09:29 Dextrose (Dextrose 50%) 50 ml Q30M PRN IV Hypoglycemia 03/16/20 09:30 06/14/20 09:29 Dopamine HCl/ Dextrose 250 ml @ 0 mls/hr Q24H IV 03/16/20 19:30 06/14/20 19:29 03/22/20 11:17 Enoxaparin Sodium (Lovenox) 40 mg DAILY SUBQ 03/19/20 09:00 04/03/20 08:59 03/22/20 08:59 Fentanyl Citrate 2500 mcg/Sodium Chloride 250 ml @ 0 mls/hr Q24H IV 03/15/20 18:30 03/22/20 18:29 03/22/20 16:00 Furosemide (Lasix) 20 mg EVERY 12 HOURS IV 03/22/20 21:00 04/21/20 20:59 Insulin Aspart (NovoLOG) Q6HR SUBQ 03/16/20 12:00 06/14/20 11:59 03/22/20 17:55 Lactulose (Cephulac) 30 gm TID ORAL 03/22/20 13:00 04/21/20 17:59 03/22/20 17:09 Levofloxacin (Levaquin) 750 mg DAILY NG 03/20/20 12:00 03/27/20 11:59 03/22/20 08:56 Levothyroxine Sodium (Synthroid) 50 mcg DAILY IV 03/21/20 09:00 04/17/20 11:59 03/22/20 08:58 Methylprednisolone Sodium Succinate (Solu-MEDROL) 40 mg EVERY 12 HOURS IVP 03/22/20 21:00 06/17/20 20:59 Metoclopramide HCl (Reglan) 10 mg Q6HR IVP 03/21/20 12:00 04/20/20 11:59 03/22/20 17:09 Midodrine (Pro-Amatine) 5 mg THREE TIMES A DAY NG 03/22/20 18:00 06/20/20 17:59 03/22/20 17:09 Mirtazapine (Remeron) 7.5 mg BEDTIME PRN ORAL SLEEP 03/13/20 14:55 06/11/20 14:54 Non-Formulary Medication (Non-Formulary Med) 1 ea DAILY IV 03/18/20 09:00 04/17/20 08:59 UNV Norepinephrine Bitartrate 16 mg/ Dextrose 500 ml @ 0 mls/hr Q24H IV 03/17/20 21:00 04/16/20 13:02 03/21/20 05:03 Propofol 100 ml @ 0 mls/hr Q24H IV 03/22/20 16:30 03/24/20 16:29 03/22/20 17:12 Rifaximin (Xifaxan) 550 mg EVERY 12 HOURS ORAL 03/18/20 09:00 03/25/20 08:59 03/22/20 08:56 Vasopressin 100 units/Sodium Chloride 100 ml @ 0 mls/hr Q24H PRN IV For hypotension 03/16/20 11:00 04/15/20 10:59 03/19/20 18:03 Johan Christopher MD March 22, 2020 18:03
[2020-03-22] MEDS: Dyna-Hex 2% Top Sol 2oz TOPIC SCH (20:25)
[2020-03-22] MEDS: Levemir Flexpen SUBQ SCH (20:25)
[2020-03-22] MEDS: Norepinephrine Bitartrate 16 MG in D5W 500ml 484 ML IV SCH (21:00)
[2020-03-22] MEDS: Solu-MEDROL 40mg Inj IVP SCH (21:20)
--- NOTE | 2020-03-22 23:15 | Cardiology Progress Note ---
Assessment/Plan Assessment/Plan 1. Acute respiratory failure with hypoxic hypercapnea due to bilateral PNA caused by COVID-19 infection. 2. Septic shock on dopamine gtt only, off vasopressin and levophed drips, keep MAP at 65 mmHg and above. Normal LV function with LVEF at 60%. 3. Hyponatremia, serum Na almost normal limits, continue lasix. 4. Bilateral lower extremity cellulitis with Pseudomonas aeruginosa in culture. 5. Pancytopenia, most likely due to hepatitis C virus infection/liver cirrhosis. Subjective Subjective Sinus rhythm at rate of 67. On dopamine gtt at 10mcg/min Objective Last 24 Hour Vital Signs Date Time Temp Pulse Resp B/P (MAP) Pulse Ox O2 Delivery O2 Flow Rate FiO2 03/22/20 21:00 138/74 03/22/20 20:26 70/35 03/22/20 19:34 67 26 80 03/22/20 19:30 21 Mechanical Ventilator 03/22/20 19:00 70 22 139/74 (95) 94 03/22/20 19:00 26 139/74 Mechanical Ventilator 03/22/20 19:00 139/74 03/22/20 18:30 91/55 03/22/20 18:00 76 26 110/63 (79) 100 03/22/20 18:00 32 110/63 Mechanical Ventilator 03/22/20 18:00 110/63 03/22/20 18:00 26 Mechanical Ventilator 03/22/20 17:30 91 38 132/70 (90) 99 03/22/20 17:12 26 133/70 Mechanical Ventilator 03/22/20 17:00 133/70 03/22/20 17:00 29 Mechanical Ventilator 03/22/20 17:00 87 36 133/70 (91) 98 03/22/20 16:30 87 24 130/69 (89) 97 03/22/20 16:00 70 03/22/20 16:00 130/69 03/22/20 16:00 26 Mechanical Ventilator 03/22/20 16:00 97.4 87 25 123/72 (89) 98 03/22/20 16:00 77 03/22/20 16:00 Mechanical Ventilator Mechanical Ventilator 03/22/20 15:59 26 Mechanical Ventilator 03/22/20 15:30 77 28 108/59 (75) 93 03/22/20 15:12 70 26 80 03/22/20 15:00 68 27 118/69 (85) 96 03/22/20 15:00 118/68 03/22/20 15:00 26 Mechanical Ventilator 03/22/20 14:00 61 26 150/80 (103) 96 03/22/20 14:00 139/80 03/22/20 14:00 26 Mechanical Ventilator 03/22/20 13:09 80 03/22/20 13:00 144/77 03/22/20 13:00 26 Mechanical Ventilator 03/22/20 13:00 65 26 149/82 (104) 96 03/22/20 12:30 66 25 139/80 (99) 96 03/22/20 12:26 84 26 80 03/22/20 12:00 96.8 64 27 152/77 (102) 98 03/22/20 12:00 Mechanical Ventilator Mechanical Ventilator 03/22/20 12:00 147/78 03/22/20 12:00 26 Mechanical Ventilator 03/22/20 12:00 72 03/22/20 11:30 64 26 150/78 (102) 96 03/22/20 11:17 141/73 03/22/20 11:00 65 26 141/82 (101) 96 03/22/20 11:00 118/70 03/22/20 11:00 25 Mechanical Ventilator 03/22/20 10:30 66 26 150/85 (106) 99 03/22/20 10:00 67 25 142/84 (103) 98 03/22/20 10:00 90 03/22/20 10:00 137/83 03/22/20 10:00 25 Mechanical Ventilator 03/22/20 09:30 79 26 90 03/22/20 09:30 80 25 146/82 (103) 93 03/22/20 09:00 69 26 153/88 (109) 96 03/22/20 09:00 152/80 03/22/20 09:00 26 Mechanical Ventilator 03/22/20 08:30 73 33 150/81 (104) 91 03/22/20 08:00 Mechanical Ventilator Mechanical Ventilator 03/22/20 08:00 100 03/22/20 08:00 151/80 03/22/20 08:00 26 Mechanical Ventilator 03/22/20 08:00 101 03/22/20 08:00 96.8 73 26 153/86 (108) 97 03/22/20 07:30 75 27 152/86 (108) 95 03/22/20 07:00 145/80 03/22/20 07:00 25 Mechanical Ventilator 03/22/20 07:00 77 24 146/76 (99) 94 03/22/20 06:40 76 28 100 03/22/20 06:00 130/76 03/22/20 06:00 26 Mechanical Ventilator 100 03/22/20 05:45 76 26 138/72 (94) 95 03/22/20 05:30 78 25 134/70 (91) 96 03/22/20 05:00 92/48 03/22/20 05:00 26 Mechanical Ventilator 100 03/22/20 05:00 86 25 102/52 (69) 95 03/22/20 04:58 68 29 100 03/22/20 04:30 111 21 140/80 (100) 97 03/22/20 04:21 26 Mechanical Ventilator 100 03/22/20 04:00 112 03/22/20 04:00 100 03/22/20 04:00 98.9 111 19 140/81 (100) 99 03/22/20 04:00 100/49 03/22/20 04:00 26 Mechanical Ventilator 100 03/22/20 04:00 Mechanical Ventilator Mechanical Ventilator 03/22/20 03:30 108 26 131/72 (91) 99 03/22/20 03:00 109 24 145/86 (105) 99 03/22/20 03:00 120/60 03/22/20 03:00 26 Mechanical Ventilator 100 03/22/20 02:30 108 26 151/78 (102) 99 03/22/20 02:00 104 27 144/74 (97) 99 03/22/20 02:00 135/75 03/22/20 02:00 26 Mechanical Ventilator 100 03/22/20 01:30 101 23 147/80 (102) 99 03/22/20 01:10 69 27 100 03/22/20 01:00 105/75 03/22/20 01:00 26 Mechanical Ventilator 100 03/22/20 01:00 95 27 146/80 (102) 100 03/22/20 00:30 72 26 145/73 (97) 100 03/22/20 00:15 92 24 148/91 (110) 99 03/22/20 00:00 Mechanical Ventilator Mechanical Ventilator 03/22/20 00:00 145/73 03/22/20 00:00 26 Mechanical Ventilator 100 03/22/20 00:00 100 03/22/20 00:00 97.1 88 23 153/93 (113) 100 03/21/20 23:45 97 23 144/90 (108) 99 03/21/20 23:30 96 21 154/83 (106) 98 03/21/20 23:25 68 Intake and Output 03/21/20 03/22/20 19:00 07:00 Intake Total 1496.250 ml 1069.233 ml Output Total 1275 ml 1175 ml Balance 221.250 ml -105.767 ml Free Water 90 ml 60 ml IV Total 866.250 ml 469.233 ml Tube Feeding 540 ml 540 ml Output Urine Total 1275 ml 1175 ml Laboratory Tests Test 03/22/20 04:00 03/22/20 06:55 White Blood Count 10.8 K/UL (4.8-10.8) Red Blood Count 2.82 M/UL (4.20-5.40) L Hemoglobin 9.5 G/DL (12.0-16.0) L Hematocrit 28.9 % (37.0-47.0) L Mean Corpuscular Volume 103 FL (80-99) H Mean Corpuscular Hemoglobin 33.6 PG (27.0-31.0) H Mean Corpuscular Hemoglobin Concent 32.8 G/DL (32.0-36.0) Red Cell Distribution Width 17.0 % (11.6-14.8) H Platelet Count 149 K/UL (150-450) L Mean Platelet Volume 6.2 FL (6.5-10.1) L Neutrophils (%) (Auto) 81.6 % (45.0-75.0) H Lymphocytes (%) (Auto) 8.2 % (20.0-45.0) L Monocytes (%) (Auto) 9.1 % (1.0-10.0) Eosinophils (%) (Auto) 0.0 % (0.0-3.0) Basophils (%) (Auto) 1.0 % (0.0-2.0) Sodium Level 138 MMOL/L (136-145) Potassium Level 4.1 MMOL/L (3.5-5.1) Chloride Level 102 MMOL/L (98-107) Carbon Dioxide Level 34 MMOL/L (21-32) H Anion Gap 2 mmol/L (5-15) L Blood Urea Nitrogen 25 mg/dL (7-18) H Creatinine 0.8 MG/DL (0.55-1.30) Estimat Glomerular Filtration Rate > 60 mL/min (>60) Glucose Level 208 MG/DL (74-106) H Calcium Level 8.6 MG/DL (8.5-10.1) Phosphorus Level 2.7 MG/DL (2.5-4.9) Magnesium Level 2.4 MG/DL (1.8-2.4) Total Bilirubin 1.6 MG/DL (0.2-1.0) H Direct Bilirubin 0.8 MG/DL (0.0-0.3) H Aspartate Amino Transf (AST/SGOT) 83 U/L (15-37) H Alanine Aminotransferase (ALT/SGPT) 36 U/L (12-78) Alkaline Phosphatase 183 U/L (46-116) H Ammonia 104 umol/L (11-32) H C-Reactive Protein, Quantitative 6.2 mg/dL (0.00-0.90) H Pro-B-Type Natriuretic Peptide 69463 pg/mL (0-125) H Total Protein 8.5 G/DL (6.4-8.2) H Albumin 2.5 G/DL (3.4-5.0) L Globulin 6.0 g/dL Albumin/Globulin Ratio 0.4 (1.0-2.7) L Arterial Blood pH 7.295 (7.350-7.450) Arterial Blood Partial Pressure CO2 68.5 mmHg (35.0-45.0) *H Arterial Blood Partial Pressure O2 117.9 mmHg (75.0-100.0) H Arterial Blood HCO3 32.6 mmol/L (22.0-26.0) H Arterial Blood Oxygen Saturation 99.1 % (95-100) Arterial Blood Base Excess 4.6 (-2-2) H Joaquin Test Positive Objective HEENT: Atraumatic and normocephalic. Anicteric. Intubated. NECK: JVP cannot be assessed. No carotid bruit. + ETT. CARDIOVASCULAR: Normal S1, S2. Regular rate and rhythm. No murmurs, gallops, or rubs. PMI is at fourth intercostal space at left midclavicular line. LUNGS: Bibasilar crackles. ABDOMEN: Soft, nontender, and nondistended. No hepatosplenomegaly. Positive bowel sounds. EXTREMITIES: A 2+ edema bilaterally associated with erythema with blistering and crust formation of both feet. Berto Gonzalez MD March 22, 2020 23:15
--- NOTE | 2020-03-22 23:50 | Pulmonolgy Critical Care Note ---
Critical Care - Asmt/Plan Assessment/Plan: Pulmonary CCM Progress Note HPI Patient is a 59 year old woman with significant obesity, admitted with bilateral lower extremity cellulitis, had complained of increased swelling and redness to both of her feet and legs Had elevated BNP on admission, persistent edema since admission, worsening hypoxia, LE DVT (right) negative for DVT. Patient had previous hospitalizations for cellulitis, PMH Hypothyroidism, Obesity, Cirrhosis, Anemia, Anxiety, Cellulitis COVID 19 positive, Pneumonia VQ no significant perfusion abnormality, prev LE dupplex negative High D Dimer level, on Lovenox PPX Being diuresed, persistent infiltrates on CXR, on ACVC, no tolerating Proning Some improvement in PaO2/FIO2, VC settings adjusted,, P 16 Hyponatremia improving, renal following Hypothyroidism Awaiting Remdasovir, [facility] - Remdesavir requested for when available, [facility] - not available as yet Received IL6 inhibitor inititial dose (4mg/Kg - all that was available), subsequent dose pending, d/w Pharmacy, on steroids - being weaned Allergies: No Known Allergies Past Medical History: Obesity, Cirrhosis, Anemia, Anxiety, Cellulitis, Hypothyroidism All Other Systems: negative except mentioned in HPI Physical Exam Vital Signs Noted General Appearance: Obese, Sedated,intubated Head: normocephalic, atraumatic Eyes: bilateral eye PERRL, bilateral eye EOMI ENT: EOM grossly intact, moist MM, no LN Respiratory: Bilateral crackles, bilateral rhonchi Cardiovascular: regular rate, rhythm, HS1, HS2 RRR Gastrointestinal: Obese, soft non tender, ND Musculoskeletal: Mild to moderate edema and erythema bilateral lower extremity , patient also has crusting on both feet, Neurologic: sedated, no focalsigns Impression: Covid Pneumonia, s/p IL6 inhibitor, sp Hydroxychloroquine, Ivermectin Significant hypoxia, PaO2 >60 100%, elevated PCO2 Bilateral Lower Extremity Cellulitis Elevated NPA, severe bilateral edema Cirrhosis Splenomegaly Anemia Anxiety Hyponatremia Hypothyroidism Plan IV Antibiotics per ID On trial of steroids, on IL6 inhibitor Diurese as tolerated, note persistently elevated BNP Surgery following for wounds Hematology following for anemia, observing for Neutropenia/thrombocytopenia Diurese PRN Renal following for hyponatremia Endocrine following for Hypothyroidism, on ISS Monitor labs Bronchodilators PPX - Lovenox Echocardiogram once Covid negative AC PC Proning PRN 3% saline PRN per renal PRN Supplement electrolytes PRN Albuterol PRN MDI 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 [employer]ER Medications Previously Patients daughter Tri - discussed grave prognosis, suggested DNAR - will consider [facility] - Remdesavir ordered, awaiting supply, awaiting next dose on IL6 inhibitor once supply available Labs Noted Chest X-Ray: Cardiomegaly, left lower lobe atelectasis versus effusion, worsening infiltrates/congestion Subjective ROS Limited/Unobtainable: No Constitutional: Reports: no symptoms Gastrointestinal/Abdominal: Reports: no symptoms Musculoskeletal: Reports: other - SOB Allergies: Coded Allergies: No Known Allergies (Unverified , 02/29/20) ICU time 50 minutes Critical Care - Objective Last 24 Hour Vital Signs Date Time Temp Pulse Resp B/P (MAP) Pulse Ox O2 Delivery O2 Flow Rate FiO2 03/22/20 23:24 108 33 80 03/22/20 21:00 138/74 03/22/20 20:26 70/35 03/22/20 19:34 67 26 80 03/22/20 19:30 21 Mechanical Ventilator 03/22/20 19:00 70 22 139/74 (95) 94 03/22/20 19:00 26 139/74 Mechanical Ventilator 03/22/20 19:00 139/74 03/22/20 18:30 91/55 03/22/20 18:00 76 26 110/63 (79) 100 03/22/20 18:00 32 110/63 Mechanical Ventilator 03/22/20 18:00 110/63 03/22/20 18:00 26 Mechanical Ventilator 03/22/20 17:30 91 38 132/70 (90) 99 03/22/20 17:12 26 133/70 Mechanical Ventilator 03/22/20 17:00 133/70 03/22/20 17:00 29 Mechanical Ventilator 03/22/20 17:00 87 36 133/70 (91) 98 03/22/20 16:30 87 24 130/69 (89) 97 03/22/20 16:00 70 03/22/20 16:00 130/69 03/22/20 16:00 26 Mechanical Ventilator 03/22/20 16:00 97.4 87 25 123/72 (89) 98 03/22/20 16:00 77 03/22/20 16:00 Mechanical Ventilator Mechanical Ventilator 03/22/20 15:59 26 Mechanical Ventilator 03/22/20 15:30 77 28 108/59 (75) 93 03/22/20 15:12 70 26 80 03/22/20 15:00 68 27 118/69 (85) 96 03/22/20 15:00 118/68 03/22/20 15:00 26 Mechanical Ventilator 03/22/20 14:00 61 26 150/80 (103) 96 03/22/20 14:00 139/80 03/22/20 14:00 26 Mechanical Ventilator 03/22/20 13:09 80 03/22/20 13:00 144/77 03/22/20 13:00 26 Mechanical Ventilator 03/22/20 13:00 65 26 149/82 (104) 96 03/22/20 12:30 66 25 139/80 (99) 96 03/22/20 12:26 84 26 80 03/22/20 12:00 96.8 64 27 152/77 (102) 98 03/22/20 12:00 Mechanical Ventilator Mechanical Ventilator 03/22/20 12:00 147/78 03/22/20 12:00 26 Mechanical Ventilator 03/22/20 12:00 72 03/22/20 11:30 64 26 150/78 (102) 96 03/22/20 11:17 141/73 03/22/20 11:00 65 26 141/82 (101) 96 03/22/20 11:00 118/70 03/22/20 11:00 25 Mechanical Ventilator 03/22/20 10:30 66 26 150/85 (106) 99 03/22/20 10:00 67 25 142/84 (103) 98 03/22/20 10:00 90 03/22/20 10:00 137/83 03/22/20 10:00 25 Mechanical Ventilator 03/22/20 09:30 79 26 90 03/22/20 09:30 80 25 146/82 (103) 93 03/22/20 09:00 69 26 153/88 (109) 96 03/22/20 09:00 152/80 03/22/20 09:00 26 Mechanical Ventilator 03/22/20 08:30 73 33 150/81 (104) 91 03/22/20 08:00 Mechanical Ventilator Mechanical Ventilator 03/22/20 08:00 100 03/22/20 08:00 151/80 03/22/20 08:00 26 Mechanical Ventilator 03/22/20 08:00 101 03/22/20 08:00 96.8 73 26 153/86 (108) 97 03/22/20 07:30 75 27 152/86 (108) 95 03/22/20 07:00 145/80 03/22/20 07:00 25 Mechanical Ventilator 03/22/20 07:00 77 24 146/76 (99) 94 03/22/20 06:40 76 28 100 03/22/20 06:00 130/76 03/22/20 06:00 26 Mechanical Ventilator 100 03/22/20 05:45 76 26 138/72 (94) 95 03/22/20 05:30 78 25 134/70 (91) 96 03/22/20 05:00 92/48 03/22/20 05:00 26 Mechanical Ventilator 100 03/22/20 05:00 86 25 102/52 (69) 95 03/22/20 04:58 68 29 100 03/22/20 04:30 111 21 140/80 (100) 97 03/22/20 04:21 26 Mechanical Ventilator 100 03/22/20 04:00 112 03/22/20 04:00 100 03/22/20 04:00 98.9 111 19 140/81 (100) 99 03/22/20 04:00 100/49 03/22/20 04:00 26 Mechanical Ventilator 100 03/22/20 04:00 Mechanical Ventilator Mechanical Ventilator 03/22/20 03:30 108 26 131/72 (91) 99 03/22/20 03:00 109 24 145/86 (105) 99 03/22/20 03:00 120/60 03/22/20 03:00 26 Mechanical Ventilator 100 03/22/20 02:30 108 26 151/78 (102) 99 03/22/20 02:00 104 27 144/74 (97) 99 03/22/20 02:00 135/75 03/22/20 02:00 26 Mechanical Ventilator 100 03/22/20 01:30 101 23 147/80 (102) 99 03/22/20 01:10 69 27 100 03/22/20 01:00 105/75 03/22/20 01:00 26 Mechanical Ventilator 100 03/22/20 01:00 95 27 146/80 (102) 100 03/22/20 00:30 72 26 145/73 (97) 100 03/22/20 00:15 92 24 148/91 (110) 99 03/22/20 00:00 Mechanical Ventilator Mechanical Ventilator 03/22/20 00:00 145/73 03/22/20 00:00 26 Mechanical Ventilator 100 03/22/20 00:00 100 03/22/20 00:00 97.1 88 23 153/93 (113) 100 Accucheck: 231 Critical Care - Subjective ROS Limited/Unobtainable: No FI02: 80 Vent Support Breath Rate: 26 Vent Support Mode: AC Vent Tidal Volume: 450 Sputum Amount: Small PEEP: 16.0 PIP: 34 Tube Feeding Amount: 45 I&O: Intake and Output 03/21/20 03/22/20 19:00 07:00 Intake Total 1496.250 ml 1069.233 ml Output Total 1275 ml 1175 ml Balance 221.250 ml -105.767 ml Free Water 90 ml 60 ml IV Total 866.250 ml 469.233 ml Tube Feeding 540 ml 540 ml Output Urine Total 1275 ml 1175 ml ET-Tube: 7.5 ET Position: 21 Doron Carrillo MD March 22, 2020 23:50
[2020-03-23] VITALS (50 sets, daily range): BP systolic 71–177; BP diastolic 31–111
[2020-03-23] MEDS: fentaNYL Citrate 2,500 MCG in NS 200 ML IV SCH ×2 (03:13→14:53)
[2020-03-23] MEDS: Metoclopramide 10mg/2ml Inj IVP SCH ×4 (05:34→23:53)
[2020-03-23] MEDS: NovoLOG Insulin Flexpen SUBQ SCH ×3 (05:35→17:46)
[2020-03-23 05:59] LABS: HEMATOCRIT 27.7 % (37.0-47.0); HEMOGLOBIN 9.1 G/DL (12.0-16.0); MEAN CORPUSCULAR VOLUME 102 FL (80-99); PLATELET COUNT 178 K/UL (150-450); RED BLOOD COUNT 2.73 M/UL (4.20-5.40); RED CELL DISTRIBUTION WIDTH 17.1 % (11.6-14.8); WHITE BLOOD COUNT 11.8 K/UL (4.8-10.8)
[2020-03-23 06:33] LABS: ALANINE AMINOTRANSFERASE 60 U/L (12-78); ALBUMIN 2.4 G/DL (3.4-5.0); ALBUMIN/GLOBULIN RATIO 0.4 (1.0-2.7); ALKALINE PHOSPHATASE 255 U/L (46-116); ANION GAP 5 mmol/L (5-15); ASPARTATE AMINO TRANSFERASE 127 U/L (15-37); BILIRUBIN,TOTAL 1.5 MG/DL (0.2-1.0); BLOOD UREA NITROGEN 25 mg/dL (7-18); CALCIUM 8.8 MG/DL (8.5-10.1); CARBON DIOXIDE 36 MMOL/L (21-32); CHLORIDE 103 MMOL/L (98-107); CREATININE 0.8 MG/DL (0.55-1.30); POTASSIUM 3.6 MMOL/L (3.5-5.1); SODIUM 143 MMOL/L (136-145); TRIGLYCERIDES 161 MG/DL (30-150)
[2020-03-23 06:34] LABS: AMMONIA 105 umol/L (11-32)
[2020-03-23 07:11] LABS: BILIRUBIN,DIRECT 0.8 MG/DL (0.0-0.3)
--- NOTE | 2020-03-23 07:36 | General Progress Note ---
Assessment/Plan Problem List: (1) Hypothyroid ICD Codes: E03.9 - Hypothyroidism, unspecified SNOMED: 63236756 (2) COVID-19 ICD Codes: U07.1 - COVID-19 SNOMED: 676266971 (3) Respiratory failure with hypoxia ICD Codes: J96.91 - Respiratory failure, unspecified with hypoxia SNOMED: [id number] Qualifiers: Qualified Codes: J96.01 - Acute respiratory failure with hypoxia (4) Respiratory distress ICD Codes: R06.03 - Acute respiratory distress SNOMED: 852128151 (5) Cellulitis ICD Codes: L03.90 - Cellulitis, unspecified SNOMED: 510807453 Qualifiers: Qualified Codes: L03.119 - Cellulitis of unspecified part of limb (6) Macrocytic anemia ICD Codes: D53.9 - Nutritional anemia, unspecified SNOMED: 39531378 Status: progressing, unchanged Assessment/Plan: continue Levemir 8 units bid continue Levothyroxine 50 mcg IV daily continue Novolog sliding scale every 6 hours Subjective ROS Limited/Unobtainable: Yes Allergies: Coded Allergies: No Known Allergies (Unverified , 02/29/20) Subjective events noted glucose values are elevated Item Value Date Time Bedside Blood Glucose 198 mg/dl H 03/23/20 0600 Bedside Blood Glucose 231 mg/dl H 03/23/20 0000 Bedside Blood Glucose 208 mg/dl H 03/22/20 2025 Bedside Blood Glucose 227 mg/dl H 03/22/20 1755 Bedside Blood Glucose 256 mg/dl H 03/22/20 1208 Bedside Blood Glucose 208 mg/dl H 03/22/20 0600 Objective Last 24 Hour Vital Signs Date Time Temp Pulse Resp B/P (MAP) Pulse Ox O2 Delivery O2 Flow Rate FiO2 03/23/20 07:24 90 03/23/20 07:17 108 37 80 03/23/20 06:00 100.0 105 132/58 (82) 94 03/23/20 06:00 26 Mechanical Ventilator 70 03/23/20 06:00 26 121/64 Mechanical Ventilator 70 03/23/20 06:00 121/64 03/23/20 05:30 114 24 123/63 (83) 94 03/23/20 05:00 115 24 115/54 (74) 95 03/23/20 05:00 26 Mechanical Ventilator 70 03/23/20 05:00 25 109/54 Mechanical Ventilator 70 03/23/20 05:00 109/54 03/23/20 04:30 114 26 123/60 (81) 94 03/23/20 04:00 Mechanical Ventilator Mechanical Ventilator 03/23/20 04:00 24 Mechanical Ventilator 70 03/23/20 04:00 23 96/63 Mechanical Ventilator 70 03/23/20 04:00 96/63 03/23/20 04:00 99.0 111 19 102/62 (75) 96 03/23/20 04:00 70 03/23/20 04:00 107 03/23/20 03:30 112 31 97/75 (82) 96 03/23/20 03:22 117 31 80 03/23/20 03:13 28 Mechanical Ventilator 03/23/20 03:13 121/64 03/23/20 03:00 118 22 147/76 (99) 98 03/23/20 03:00 24 Mechanical Ventilator 70 03/23/20 03:00 24 134/66 Mechanical Ventilator 70 03/23/20 03:00 134/66 03/23/20 02:30 115 22 132/70 (90) 96 03/23/20 02:00 115 18 111/68 (82) 97 03/23/20 02:00 28 Mechanical Ventilator 70 03/23/20 02:00 28 108/77 Mechanical Ventilator 70 03/23/20 02:00 108/77 03/23/20 01:30 117 21 117/65 (82) 97 03/23/20 01:15 117 21 147/82 (103) 97 03/23/20 01:00 108 22 170/75 (106) 96 03/23/20 01:00 24 Mechanical Ventilator 70 03/23/20 01:00 28 147/82 Mechanical Ventilator 70 03/23/20 01:00 147/82 03/23/20 00:45 115 16 167/84 (111) 98 03/23/20 00:30 114 21 177/85 (115) 69 03/23/20 00:28 113 19 168/90 (116) 03/23/20 00:15 112 21 161/81 (107) 95 03/23/20 00:00 98.8 105 26 159/85 (109) 95 03/23/20 00:00 Mechanical Ventilator Mechanical Ventilator 03/23/20 00:00 28 Mechanical Ventilator 70 03/23/20 00:00 28 161/81 Mechanical Ventilator 70 03/23/20 00:00 161/81 03/23/20 00:00 112 03/23/20 00:00 70 03/22/20 23:30 108 22 160/92 (114) 98 03/22/20 23:24 108 33 80 03/22/20 23:00 107 20 169/81 (110) 100 03/22/20 23:00 28 Mechanical Ventilator 70 03/22/20 23:00 26 148/95 Mechanical Ventilator 70 03/22/20 23:00 148/95 03/22/20 22:30 106 16 152/88 (109) 100 03/22/20 22:00 28 Mechanical Ventilator 70 03/22/20 22:00 28 150/82 Mechanical Ventilator 70 03/22/20 22:00 150/88 03/22/20 22:00 97 24 138/82 (100) 98 03/22/20 21:45 28 122/55 Mechanical Ventilator 70 03/22/20 21:30 28 129/70 Mechanical Ventilator 70 03/22/20 21:30 129/70 03/22/20 21:30 96 23 143/83 (103) 100 03/22/20 21:15 28 120/70 Mechanical Ventilator 70 03/22/20 21:15 130/73 03/22/20 21:00 28 Mechanical Ventilator 70 03/22/20 21:00 26 136/74 Mechanical Ventilator 70 03/22/20 21:00 138/74 20 21:00 81 25 142/76 (98) 95 03/22/20 20:30 76 30 128/70 (89) 99 20 20:26 70/35 20 20:00 98.0 75 23 131/66 (87) 99 03/22/20 20:00 Mechanical Ventilator Mechanical Ventilator 03/22/20 20:00 76 6 20:00 26 Mechanical Ventilator 70 20 20:00 26 100/50 Mechanical Ventilator 70 20 20:00 100/50 5/6/20 20:00 70 20 19:34 67 26 80 5/620 19:30 77 25 138/70 (92) 98 5/6/20 19:30 21 Mechanical Ventilator 03/22/20 19:00 70 22 139/74 (95) 94 03/22/20 19:00 26 139/74 Mechanical Ventilator 03/22/20 19:00 139/74 03/22/20 18:30 91/55 03/22/20 18:00 76 26 110/63 (79) 100 03/22/20 18:00 32 110/63 Mechanical Ventilator 03/22/20 18:00 110/63 03/22/20 18:00 26 Mechanical Ventilator 03/22/20 17:30 91 38 132/70 (90) 99 03/22/20 17:12 26 133/70 Mechanical Ventilator 03/22/20 17:00 133/70 03/22/20 17:00 29 Mechanical Ventilator 03/22/20 17:00 87 36 133/70 (91) 98 03/22/20 16:30 87 24 130/69 (89) 97 03/22/20 16:00 70 03/22/20 16:00 130/69 03/22/20 16:00 26 Mechanical Ventilator 03/22/20 16:00 97.4 87 25 123/72 (89) 98 03/22/20 16:00 77 03/22/20 16:00 Mechanical Ventilator Mechanical Ventilator 03/22/20 15:59 26 Mechanical Ventilator 03/22/20 15:30 77 28 108/59 (75) 93 03/22/20 15:12 70 26 80 03/22/20 15:00 68 27 118/69 (85) 96 03/22/20 15:00 118/68 03/22/20 15:00 26 Mechanical Ventilator 03/22/20 14:00 61 26 150/80 (103) 96 03/22/20 14:00 139/80 03/22/20 14:00 26 Mechanical Ventilator 03/22/20 13:09 80 03/22/20 13:00 144/77 03/22/20 13:00 26 Mechanical Ventilator 03/22/20 13:00 65 26 149/82 (104) 96 03/22/20 12:30 66 25 139/80 (99) 96 03/22/20 12:26 84 26 80 03/22/20 12:00 96.8 64 27 152/77 (102) 98 03/22/20 12:00 Mechanical Ventilator Mechanical Ventilator 03/22/20 12:00 147/78 5/6/20 12:00 26 Mechanical Ventilator 03/22/20 12:00 72 03/22/20 11:30 64 26 150/78 (102) 96 03/22/20 11:17 141/73 03/22/20 11:00 65 26 141/82 (101) 96 03/22/20 11:00 118/70 03/22/20 11:00 25 Mechanical Ventilator 03/22/20 10:30 66 26 150/85 (106) 99 03/22/20 10:00 67 25 142/84 (103) 98 03/22/20 10:00 90 03/22/20 10:00 137/83 03/22/20 10:00 25 Mechanical Ventilator 03/22/20 09:30 79 26 90 03/22/20 09:30 80 25 146/82 (103) 93 03/22/20 09:00 69 26 153/88 (109) 96 03/22/20 09:00 152/80 03/22/20 09:00 26 Mechanical Ventilator 03/22/20 08:30 73 33 150/81 (104) 91 03/22/20 08:00 Mechanical Ventilator Mechanical Ventilator 03/22/20 08:00 100 03/22/20 08:00 151/80 03/22/20 08:00 26 Mechanical Ventilator 03/22/20 08:00 101 03/22/20 08:00 96.8 73 26 153/86 (108) 97 Intake and Output 03/22/20 03/23/20 19:00 07:00 Intake Total 1112.346 ml 991.096 ml Output Total 1480 ml 1820 ml Balance -367.654 ml -828.904 ml Free Water 90 ml 60 ml IV Total 482.346 ml 436.096 ml Tube Feeding 540 ml 495 ml Output Urine Total 1470 ml 1760 ml Stool Total 10 ml 60 ml Laboratory Tests 03/23/20 03:34: White Blood Count 11.8H, Red Blood Count 2.73L, Hemoglobin 9.1L, Hematocrit 27.7L, Mean Corpuscular Volume 102H, Mean Corpuscular Hemoglobin 33.5H, Mean Corpuscular Hemoglobin Concent 33.0, Red Cell Distribution Width 17.1H, Platelet Count 178, Mean Platelet Volume 6.4L, Neutrophils (%) (Auto) , Lymphocytes (%) (Auto) , Monocytes (%) (Auto) , Eosinophils (%) (Auto) , Basophils (%) (Auto) , Sodium Level 143, Potassium Level 3.6, Chloride Level 103 , Carbon Dioxide Level 36H, Anion Gap 5, Blood Urea Nitrogen 25H, Creatinine 0.8 , Estimat Glomerular Filtration Rate > 60, Glucose Level 205H, Calcium Level 8.8 , Total Bilirubin 1.5H, Direct Bilirubin 0.8H, Aspartate Amino Transf (AST/SGOT ) 127H, Alanine Aminotransferase (ALT/SGPT) 60, Alkaline Phosphatase 255H, Ammonia 105H, Total Protein 8.1, Albumin 2.4L, Globulin 5.7, Albumin/Globulin Ratio 0.4L, Triglycerides Level 161H Height (Feet): 5 Height (Inches): 1.00 Weight (Pounds): 239 General Appearance: severe distress Neck: normal alignment Respiratory/Chest: decreased breath sounds Abdomen: normal bowel sounds Pelvis: normal external exam Objective Current Medications Medications (Trade) Dose Ordered Sig/Dolores Route PRN Reason Start Time Stop Time Status Last Admin Dose Admin Acetaminophen (Tylenol) 650 mg Q4H PRN ORAL Temp >100 03/13/20 14:53 04/12/20 14:52 03/19/20 06:25 Acetaminophen (Tylenol) 650 mg Q4H PRN ORAL Mild Pain (Pain Scale 1-3) 03/13/20 14:53 04/12/20 14:52 03/20/20 04:09 Chlorhexidine Gluconate (Lucretia-Hex 2%) 1 applic DAILY@2000 TOPIC 03/13/20 20:00 06/11/20 19:59 03/22/20 20:25 Dextrose (Dextrose 50%) 25 ml Q30M PRN IV Hypoglycemia 03/22/20 18:15 06/20/20 18:14 Dextrose (Dextrose 50%) 50 ml Q30M PRN IV Hypoglycemia 03/22/20 18:15 06/20/20 18:14 Dopamine HCl/ Dextrose 250 ml @ 0 mls/hr Q24H IV 03/16/20 19:30 06/14/20 19:29 03/22/20 20:26 Enoxaparin Sodium (Lovenox) 40 mg DAILY SUBQ 03/19/20 09:00 04/03/20 08:59 03/22/20 08:59 Fentanyl Citrate 2500 mcg/Sodium Chloride 250 ml @ 0 mls/hr Q24H IV 03/22/20 19:30 03/29/20 19:29 03/23/20 03:13 Furosemide (Lasix) 20 mg EVERY 12 HOURS IV 03/22/20 21:00 04/21/20 20:59 03/22/20 21:20 Insulin Aspart (NovoLOG) Q6HR SUBQ 03/16/20 12:00 06/14/20 11:59 03/23/20 05:35 Insulin Detemir (Levemir) 8 units BID SUBQ 03/22/20 19:00 06/20/20 18:59 03/22/20 20:25 Lactulose (Cephulac) 30 gm TID ORAL 03/22/20 13:00 04/21/20 17:59 03/22/20 17:09 Levofloxacin (Levaquin) 750 mg DAILY NG 03/20/20 12:00 03/27/20 11:59 03/22/20 08:56 Levothyroxine Sodium (Synthroid) 50 mcg DAILY IV 03/21/20 09:00 04/17/20 11:59 03/22/20 08:58 Methylprednisolone Sodium Succinate (Solu-MEDROL) 40 mg EVERY 12 HOURS IVP 03/22/20 21:00 06/17/20 20:59 03/22/20 21:20 Metoclopramide HCl (Reglan) 10 mg Q6HR IVP 03/21/20 12:00 04/20/20 11:59 03/23/20 05:34 Midodrine (Pro-Amatine) 5 mg THREE TIMES A DAY NG 03/22/20 18:00 06/20/20 17:59 03/22/20 17:09 Mirtazapine (Remeron) 7.5 mg BEDTIME PRN ORAL SLEEP 03/13/20 14:55 06/11/20 14:54 Non-Formulary Medication (Non-Formulary Med) 1 ea DAILY IV 03/18/20 09:00 04/17/20 08:59 UNV Norepinephrine Bitartrate 16 mg/ Dextrose 500 ml @ 0 mls/hr Q24H IV 03/17/20 21:00 04/16/20 13:02 03/21/20 05:03 Propofol 100 ml @ 0 mls/hr Q24H IV 03/22/20 16:30 03/24/20 16:29 03/22/20 17:12 Rifaximin (Xifaxan) 550 mg EVERY 12 HOURS ORAL 03/18/20 09:00 03/25/20 08:59 03/22/20 21:21 Vasopressin 100 units/Sodium Chloride 100 ml @ 0 mls/hr Q24H PRN IV For hypotension 03/16/20 11:00 04/15/20 10:59 03/19/20 18:03 Johan Christopher MD March 23, 2020 07:36
[2020-03-23] MEDS: propofoL 1,000mg/100ml 100 ML IV SCH ×3 (08:28→19:47)
[2020-03-23] MEDS: Lactulose 20gm/30ml UDC ORAL SCH ×3 (08:51→17:44)
--- NOTE | 2020-03-23 08:51 | Infectious Diseases Prog Note ---
Assessment/Plan Assessment/Plan IMPRESSION: 1. Bilateral leg cellulitis,Pseudomonas in culture 2. Anemia. 3. Hypoxemic respiratory failure 4. Thrombocytopenia. 5. Homeless 6. Morbid obesity. 7. Cirrhosis 8. COVID19 pneumonia Positive03/07-03/12 9. Hepatitis C 10.septic shock 11. Pneumonia with Stenotrophomonas & Achromobacter RECOMMENDATION: Will f/u COVID19 test Finished Plaquenil & Zithromax course Received a dose of Actemra & Ivermectin Continue Levaquin Case was D/W RN Subjective ROS Limited/Unobtainable: Yes Constitutional: Reports: fever, other - T=100 Cardiovascular: Reports: other - on Dopamine Neurologic: Reports: other - on restraint Allergies: Coded Allergies: No Known Allergies (Unverified , 02/29/20) Objective Vital Signs Last 24 Hour Vital Signs Date Time Temp Pulse Resp B/P (MAP) Pulse Ox O2 Delivery O2 Flow Rate FiO2 03/23/20 08:28 26 125/85 Mechanical Ventilator 90 03/23/20 07:24 90 03/23/20 07:17 108 37 80 03/23/20 06:00 100.0 105 132/58 (82) 94 03/23/20 06:00 26 Mechanical Ventilator 70 03/23/20 06:00 26 121/64 Mechanical Ventilator 70 03/23/20 06:00 121/64 03/23/20 05:30 114 24 123/63 (83) 94 03/23/20 05:00 115 24 115/54 (74) 95 03/23/20 05:00 26 Mechanical Ventilator 70 03/23/20 05:00 25 109/54 Mechanical Ventilator 70 03/23/20 05:00 109/54 03/23/20 04:30 114 26 123/60 (81) 94 03/23/20 04:00 Mechanical Ventilator Mechanical Ventilator 03/23/20 04:00 24 Mechanical Ventilator 70 03/23/20 04:00 23 96/63 Mechanical Ventilator 70 03/23/20 04:00 96/63 03/23/20 04:00 99.0 111 19 102/62 (75) 96 03/23/20 04:00 70 03/23/20 04:00 107 03/23/20 03:30 112 31 97/75 (82) 96 03/23/20 03:22 117 31 80 03/23/20 03:13 28 Mechanical Ventilator 03/23/20 03:13 121/64 03/23/20 03:00 118 22 147/76 (99) 98 03/23/20 03:00 24 Mechanical Ventilator 70 03/23/20 03:00 24 134/66 Mechanical Ventilator 70 03/23/20 03:00 134/66 03/23/20 02:30 115 22 132/70 (90) 96 03/23/20 02:00 115 18 111/68 (82) 97 03/23/20 02:00 28 Mechanical Ventilator 70 03/23/20 02:00 28 108/77 Mechanical Ventilator 70 03/23/20 02:00 108/77 03/23/20 01:30 117 21 117/65 (82) 97 03/23/20 01:15 117 21 147/82 (103) 97 03/23/20 01:00 108 22 170/75 (106) 96 03/23/20 01:00 24 Mechanical Ventilator 70 03/23/20 01:00 28 147/82 Mechanical Ventilator 70 03/23/20 01:00 147/82 03/23/20 00:45 115 16 167/84 (111) 98 03/23/20 00:30 114 21 177/85 (115) 69 03/23/20 00:28 113 19 168/90 (116) 03/23/20 00:15 112 21 161/81 (107) 95 03/23/20 00:00 98.8 105 26 159/85 (109) 95 03/23/20 00:00 Mechanical Ventilator Mechanical Ventilator 03/23/20 00:00 28 Mechanical Ventilator 70 03/23/20 00:00 28 161/81 Mechanical Ventilator 70 03/23/20 00:00 161/81 03/23/20 00:00 112 03/23/20 00:00 70 03/22/20 23:30 108 22 160/92 (114) 98 03/22/20 23:24 108 33 80 03/22/20 23:00 107 20 169/81 (110) 100 03/22/20 23:00 28 Mechanical Ventilator 70 03/22/20 23:00 26 148/95 Mechanical Ventilator 70 03/22/20 23:00 148/95 03/22/20 22:30 106 16 152/88 (109) 100 03/22/20 22:00 28 Mechanical Ventilator 70 20 22:00 28 150/82 Mechanical Ventilator 70 6/20 22:00 150/88 5/620 22:00 97 24 138/82 (100) 98 /6/20 21:45 28 122/55 Mechanical Ventilator 70 /6/20 21:30 28 129/70 Mechanical Ventilator 70 /6/20 21:30 129/70 5/6/20 21:30 96 23 143/83 (103) 100 6/20 21:15 28 120/70 Mechanical Ventilator 70 6/20 21:15 130/73 5/6/20 21:00 28 Mechanical Ventilator 70 /6/20 21:00 26 136/74 Mechanical Ventilator 70 20 21:00 138/74 /6/20 21:00 81 25 142/76 (98) 95 6/20 20:30 76 30 128/70 (89) 99 /6/20 20:26 70/35 5/6/20 20:00 98.0 75 23 131/66 (87) 99 20 20:00 Mechanical Ventilator Mechanical Ventilator 20 20:00 76 5/6/20 20:00 26 Mechanical Ventilator 70 6/20 20:00 26 100/50 Mechanical Ventilator 70 620 20:00 100/50 5/6/20 20:00 70 //20 19:34 67 26 80 5/6/20 19:30 77 25 138/70 (92) 98 /6/20 19:30 21 Mechanical Ventilator 20 19:00 70 22 139/74 (95) 94 20 19:00 26 139/74 Mechanical Ventilator 620 19:00 139/74 5/6/20 18:30 91/55 5/6/20 18:00 76 26 110/63 (79) 100 520 18:00 32 110/63 Mechanical Ventilator 620 18:00 110/63 5/6/20 18:00 26 Mechanical Ventilator 620 17:30 91 38 132/70 (90) 99 5/6/20 17:12 26 133/70 Mechanical Ventilator 620 17:00 133/70 5/6/20 17:00 29 Mechanical Ventilator 5/6/20 17:00 87 36 133/70 (91) 98 03/22/20 16:30 87 24 130/69 (89) 97 03/22/20 16:00 70 03/22/20 16:00 130/69 03/22/20 16:00 26 Mechanical Ventilator 03/22/20 16:00 97.4 87 25 123/72 (89) 98 03/22/20 16:00 77 03/22/20 16:00 Mechanical Ventilator Mechanical Ventilator 03/22/20 15:59 26 Mechanical Ventilator 03/22/20 15:30 77 28 108/59 (75) 93 03/22/20 15:12 70 26 80 03/22/20 15:00 68 27 118/69 (85) 96 03/22/20 15:00 118/68 03/22/20 15:00 26 Mechanical Ventilator 03/22/20 14:00 61 26 150/80 (103) 96 03/22/20 14:00 139/80 03/22/20 14:00 26 Mechanical Ventilator 03/22/20 13:09 80 03/22/20 13:00 144/77 03/22/20 13:00 26 Mechanical Ventilator 03/22/20 13:00 65 26 149/82 (104) 96 03/22/20 12:30 66 25 139/80 (99) 96 03/22/20 12:26 84 26 80 03/22/20 12:00 96.8 64 27 152/77 (102) 98 03/22/20 12:00 Mechanical Ventilator Mechanical Ventilator 03/22/20 12:00 147/78 03/22/20 12:00 26 Mechanical Ventilator 03/22/20 12:00 72 03/22/20 11:30 64 26 150/78 (102) 96 03/22/20 11:17 141/73 03/22/20 11:00 65 26 141/82 (101) 96 03/22/20 11:00 118/70 03/22/20 11:00 25 Mechanical Ventilator 03/22/20 10:30 66 26 150/85 (106) 99 03/22/20 10:00 67 25 142/84 (103) 98 03/22/20 10:00 90 03/22/20 10:00 137/83 03/22/20 10:00 25 Mechanical Ventilator 5/6/20 09:30 79 26 90 03/22/20 09:30 80 25 146/82 (103) 93 03/22/20 09:00 69 26 153/88 (109) 96 03/22/20 09:00 152/80 03/22/20 09:00 26 Mechanical Ventilator Height (Feet): 5 Height (Inches): 1.00 Weight (Pounds): 239 HEENT: other - orally intubated Respiratory/Chest: other Cardiovascular: tachycardia, other - PICC line Abdomen: other - NG tube Extremities: other - legs edema Neurologic/Psychiatric: unresponsiveness Microbiology Date/Time Source Procedure Growth Status 03/22/20 00:15 Sputum Gram Stain - Final Resulted 03/22/20 00:15 Sputum Sputum Culture Pending Resulted Laboratory Tests Test 03/23/20 03:34 White Blood Count 11.8 K/UL (4.8-10.8) H Red Blood Count 2.73 M/UL (4.20-5.40) L Hemoglobin 9.1 G/DL (12.0-16.0) L Hematocrit 27.7 % (37.0-47.0) L Mean Corpuscular Volume 102 FL (80-99) H Mean Corpuscular Hemoglobin 33.5 PG (27.0-31.0) H Mean Corpuscular Hemoglobin Concent 33.0 G/DL (32.0-36.0) Red Cell Distribution Width 17.1 % (11.6-14.8) H Platelet Count 178 K/UL (150-450) Mean Platelet Volume 6.4 FL (6.5-10.1) L Neutrophils (%) (Auto) % (45.0-75.0) Lymphocytes (%) (Auto) % (20.0-45.0) Monocytes (%) (Auto) % (1.0-10.0) Eosinophils (%) (Auto) % (0.0-3.0) Basophils (%) (Auto) % (0.0-2.0) Sodium Level 143 MMOL/L (136-145) Potassium Level 3.6 MMOL/L (3.5-5.1) Chloride Level 103 MMOL/L (98-107) Carbon Dioxide Level 36 MMOL/L (21-32) H Anion Gap 5 mmol/L (5-15) Blood Urea Nitrogen 25 mg/dL (7-18) H Creatinine 0.8 MG/DL (0.55-1.30) Estimat Glomerular Filtration Rate > 60 mL/min (>60) Glucose Level 205 MG/DL (74-106) H Calcium Level 8.8 MG/DL (8.5-10.1) Total Bilirubin 1.5 MG/DL (0.2-1.0) H Direct Bilirubin 0.8 MG/DL (0.0-0.3) H Aspartate Amino Transf (AST/SGOT) 127 U/L (15-37) H Alanine Aminotransferase (ALT/SGPT) 60 U/L (12-78) Alkaline Phosphatase 255 U/L (46-116) H Ammonia 105 umol/L (11-32) H Total Protein 8.1 G/DL (6.4-8.2) Albumin 2.4 G/DL (3.4-5.0) L Globulin 5.7 g/dL Albumin/Globulin Ratio 0.4 (1.0-2.7) L Triglycerides Level 161 MG/DL (30-150) H Current Medications Medications (Trade) Dose Ordered Sig/Dolores Route PRN Reason Start Time Stop Time Status Last Admin Dose Admin Acetaminophen (Tylenol) 650 mg Q4H PRN ORAL Temp >100 03/13/20 14:53 04/12/20 14:52 03/19/20 06:25 Acetaminophen (Tylenol) 650 mg Q4H PRN ORAL Mild Pain (Pain Scale 1-3) 03/13/20 14:53 04/12/20 14:52 03/20/20 04:09 Chlorhexidine Gluconate (Lucretia-Hex 2%) 1 applic DAILY@2000 TOPIC 03/13/20 20:00 06/11/20 19:59 03/22/20 20:25 Dextrose (Dextrose 50%) 25 ml Q30M PRN IV Hypoglycemia 03/22/20 18:15 06/20/20 18:14 Dextrose (Dextrose 50%) 50 ml Q30M PRN IV Hypoglycemia 03/22/20 18:15 06/20/20 18:14 Dopamine HCl/ Dextrose 250 ml @ 0 mls/hr Q24H IV 03/16/20 19:30 06/14/20 19:29 03/22/20 20:26 Enoxaparin Sodium (Lovenox) 40 mg DAILY SUBQ 03/19/20 09:00 04/03/20 08:59 03/22/20 08:59 Fentanyl Citrate 2500 mcg/Sodium Chloride 250 ml @ 0 mls/hr Q24H IV 03/22/20 19:30 03/29/20 19:29 03/23/20 03:13 Furosemide (Lasix) 20 mg EVERY 12 HOURS IV 03/22/20 21:00 04/21/20 20:59 03/22/20 21:20 Insulin Aspart (NovoLOG) Q6HR SUBQ 03/16/20 12:00 06/14/20 11:59 03/23/20 05:35 Insulin Detemir (Levemir) 8 units BID SUBQ 03/22/20 19:00 06/20/20 18:59 03/22/20 20:25 Lactulose (Cephulac) 30 gm TID ORAL 03/22/20 13:00 04/21/20 17:59 03/22/20 17:09 Levofloxacin (Levaquin) 750 mg DAILY NG 03/20/20 12:00 03/27/20 11:59 03/22/20 08:56 Levothyroxine Sodium (Synthroid) 50 mcg DAILY IV 03/21/20 09:00 04/17/20 11:59 03/22/20 08:58 Methylprednisolone Sodium Succinate (Solu-MEDROL) 40 mg EVERY 12 HOURS IVP 03/22/20 21:00 06/17/20 20:59 03/22/20 21:20 Metoclopramide HCl (Reglan) 10 mg Q6HR IVP 03/21/20 12:00 04/20/20 11:59 03/23/20 05:34 Midodrine (Pro-Amatine) 5 mg THREE TIMES A DAY NG 03/22/20 18:00 06/20/20 17:59 03/22/20 17:09 Mirtazapine (Remeron) 7.5 mg BEDTIME PRN ORAL SLEEP 03/13/20 14:55 06/11/20 14:54 Non-Formulary Medication (Non-Formulary Med) 1 ea DAILY IV 03/18/20 09:00 04/17/20 08:59 UNV Norepinephrine Bitartrate 16 mg/ Dextrose 500 ml @ 0 mls/hr Q24H IV 03/17/20 21:00 04/16/20 13:02 03/21/20 05:03 Propofol 100 ml @ 0 mls/hr Q24H IV 03/22/20 16:30 03/24/20 16:29 03/23/20 08:28 Rifaximin (Xifaxan) 550 mg EVERY 12 HOURS ORAL 03/18/20 09:00 03/25/20 08:59 03/22/20 21:21 Vasopressin 100 units/Sodium Chloride 100 ml @ 0 mls/hr Q24H PRN IV For hypotension 03/16/20 11:00 04/15/20 10:59 03/19/20 18:03 Jonathon Shah MD March 23, 2020 08:51
[2020-03-23] MEDS: Levofloxacin 750mg tab NG SCH (08:52)
[2020-03-23] MEDS: Solu-MEDROL 40mg Inj IVP SCH ×2 (08:52→20:51)
[2020-03-23] MEDS: Enoxaparin 40mg Inj SUBQ SCH (08:53)
[2020-03-23] MEDS: Levemir Flexpen SUBQ SCH ×2 (08:59→17:45)
--- NOTE | 2020-03-23 09:28 | Nephrology Progress Note ---
Assessment/Plan Problem List: (1) Electrolyte imbalance Assessment: Hyponatremia resolved -hyperkalemia resolved (2) COVID-19 (3) Respiratory failure with hypoxia (4) Cellulitis (5) Hypothyroid Assessment Hyponatremia. Serum sodium started drifting down from March 16. Hyperkalemia. Septic shock. Acute respiratory failure. Respiratory failure and COVID pneumonia. 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 to enterprise systems engineer Urine sodium is below 20 Serum ammonia is elevated will start lactulose Patient on Solu-Medrol and Solu-Cortef will discontinue Solu-Cortef Will try to gently diurese for severe edema meanwhile administering albumin 25% as needed Monitor electrolytes and renal parameters We will add midodrine 10 mg 3 times a day via NG tube Decrease dosage of IV Synthroid Discussed with DAO Starr Subjective ROS Limited/Unobtainable: Yes Objective Objective Last 24 Hour Vital Signs Date Time Temp Pulse Resp B/P (MAP) Pulse Ox O2 Delivery O2 Flow Rate FiO2 03/23/20 08:28 26 125/85 Mechanical Ventilator 90 03/23/20 07:24 90 03/23/20 07:17 108 37 80 03/23/20 06:00 100.0 105 132/58 (82) 94 03/23/20 06:00 26 Mechanical Ventilator 70 03/23/20 06:00 26 121/64 Mechanical Ventilator 70 03/23/20 06:00 121/64 03/23/20 05:30 114 24 123/63 (83) 94 03/23/20 05:00 115 24 115/54 (74) 95 03/23/20 05:00 26 Mechanical Ventilator 70 03/23/20 05:00 25 109/54 Mechanical Ventilator 70 03/23/20 05:00 109/54 03/23/20 04:30 114 26 123/60 (81) 94 03/23/20 04:00 Mechanical Ventilator Mechanical Ventilator 03/23/20 04:00 24 Mechanical Ventilator 70 03/23/20 04:00 23 96/63 Mechanical Ventilator 70 03/23/20 04:00 96/63 03/23/20 04:00 99.0 111 19 102/62 (75) 96 03/23/20 04:00 70 03/23/20 04:00 107 03/23/20 03:30 112 31 97/75 (82) 96 03/23/20 03:22 117 31 80 03/23/20 03:13 28 Mechanical Ventilator 03/23/20 03:13 121/64 03/23/20 03:00 118 22 147/76 (99) 98 03/23/20 03:00 24 Mechanical Ventilator 70 03/23/20 03:00 24 134/66 Mechanical Ventilator 70 03/23/20 03:00 134/66 03/23/20 02:30 115 22 132/70 (90) 96 03/23/20 02:00 115 18 111/68 (82) 97 03/23/20 02:00 28 Mechanical Ventilator 70 03/23/20 02:00 28 108/77 Mechanical Ventilator 70 03/23/20 02:00 108/77 03/23/20 01:30 117 21 117/65 (82) 97 03/23/20 01:15 117 21 147/82 (103) 97 03/23/20 01:00 108 22 170/75 (106) 96 03/23/20 01:00 24 Mechanical Ventilator 70 03/23/20 01:00 28 147/82 Mechanical Ventilator 70 03/23/20 01:00 147/82 03/23/20 00:45 115 16 167/84 (111) 98 03/23/20 00:30 114 21 177/85 (115) 69 03/23/20 00:28 113 19 168/90 (116) 03/23/20 00:15 112 21 161/81 (107) 95 03/23/20 00:00 98.8 105 26 159/85 (109) 95 03/23/20 00:00 Mechanical Ventilator Mechanical Ventilator 03/23/20 00:00 28 Mechanical Ventilator 70 03/23/20 00:00 28 161/81 Mechanical Ventilator 70 03/23/20 00:00 161/81 03/23/20 00:00 112 03/23/20 00:00 70 03/22/20 23:30 108 22 160/92 (114) 98 03/22/20 23:24 108 33 80 03/22/20 23:00 107 20 169/81 (110) 100 03/22/20 23:00 28 Mechanical Ventilator 70 03/22/20 23:00 26 148/95 Mechanical Ventilator 70 20 23:00 148/95 20 22:30 106 16 152/88 (109) 100 20 22:00 28 Mechanical Ventilator 70 20 22:00 28 150/82 Mechanical Ventilator 70 620 22:00 150/88 20 22:00 97 24 138/82 (100) 98 6/20 21:45 28 122/55 Mechanical Ventilator 70 20 21:30 28 129/70 Mechanical Ventilator 70 20 21:30 129/70 /6/20 21:30 96 23 143/83 (103) 100 20 21:15 28 120/70 Mechanical Ventilator 70 20 21:15 130/73 /620 21:00 28 Mechanical Ventilator 70 20 21:00 26 136/74 Mechanical Ventilator 70 20 21:00 138/74 5/6/20 21:00 81 25 142/76 (98) 95 20 20:30 76 30 128/70 (89) 99 03/22/20 20:26 70/35 5//20 20:00 98.0 75 23 131/66 (87) 99 03/22/20 20:00 Mechanical Ventilator Mechanical Ventilator 03/22/20 20:00 76 20 20:00 26 Mechanical Ventilator 70 20 20:00 26 100/50 Mechanical Ventilator 70 20 20:00 100/50 5/6/20 20:00 70 20 19:34 67 26 80 5/6/20 19:30 77 25 138/70 (92) 98 6/20 19:30 21 Mechanical Ventilator 20 19:00 70 22 139/74 (95) 94 56/20 19:00 26 139/74 Mechanical Ventilator 20 19:00 139/74 5/6/20 18:30 91/55 5/620 18:00 76 26 110/63 (79) 100 5/6/20 18:00 32 110/63 Mechanical Ventilator 620 18:00 110/63 5/6/20 18:00 26 Mechanical Ventilator 20 17:30 91 38 132/70 (90) 99 5/6/20 17:12 26 133/70 Mechanical Ventilator 03/22/20 17:00 133/70 03/22/20 17:00 29 Mechanical Ventilator 03/22/20 17:00 87 36 133/70 (91) 98 03/22/20 16:30 87 24 130/69 (89) 97 03/22/20 16:00 70 03/22/20 16:00 130/69 03/22/20 16:00 26 Mechanical Ventilator 03/22/20 16:00 97.4 87 25 123/72 (89) 98 03/22/20 16:00 77 03/22/20 16:00 Mechanical Ventilator Mechanical Ventilator 03/22/20 15:59 26 Mechanical Ventilator 03/22/20 15:30 77 28 108/59 (75) 93 03/22/20 15:12 70 26 80 03/22/20 15:00 68 27 118/69 (85) 96 03/22/20 15:00 118/68 03/22/20 15:00 26 Mechanical Ventilator 03/22/20 14:00 61 26 150/80 (103) 96 03/22/20 14:00 139/80 03/22/20 14:00 26 Mechanical Ventilator 03/22/20 13:09 80 03/22/20 13:00 144/77 03/22/20 13:00 26 Mechanical Ventilator 03/22/20 13:00 65 26 149/82 (104) 96 03/22/20 12:30 66 25 139/80 (99) 96 03/22/20 12:26 84 26 80 03/22/20 12:00 96.8 64 27 152/77 (102) 98 03/22/20 12:00 Mechanical Ventilator Mechanical Ventilator 03/22/20 12:00 147/78 03/22/20 12:00 26 Mechanical Ventilator 03/22/20 12:00 72 03/22/20 11:30 64 26 150/78 (102) 96 03/22/20 11:17 141/73 03/22/20 11:00 65 26 141/82 (101) 96 03/22/20 11:00 118/70 03/22/20 11:00 25 Mechanical Ventilator 03/22/20 10:30 66 26 150/85 (106) 99 03/22/20 10:00 67 25 142/84 (103) 98 03/22/20 10:00 90 03/22/20 10:00 137/83 03/22/20 10:00 25 Mechanical Ventilator 03/22/20 09:30 79 26 90 03/22/20 09:30 80 25 146/82 (103) 93 Intake and Output 03/22/20 03/23/20 19:00 07:00 Intake Total 1112.346 ml 991.096 ml Output Total 1480 ml 1820 ml Balance -367.654 ml -828.904 ml Free Water 90 ml 60 ml IV Total 482.346 ml 436.096 ml Tube Feeding 540 ml 495 ml Output Urine Total 1470 ml 1760 ml Stool Total 10 ml 60 ml Laboratory Tests 03/23/20 03:34: White Blood Count 11.8H, Red Blood Count 2.73L, Hemoglobin 9.1L, Hematocrit 27.7L, Mean Corpuscular Volume 102H, Mean Corpuscular Hemoglobin 33.5H, Mean Corpuscular Hemoglobin Concent 33.0, Red Cell Distribution Width 17.1H, Platelet Count 178, Mean Platelet Volume 6.4L, Neutrophils (%) (Auto) , Lymphocytes (%) (Auto) , Monocytes (%) (Auto) , Eosinophils (%) (Auto) , Basophils (%) (Auto) , Sodium Level 143, Potassium Level 3.6, Chloride Level 103 , Carbon Dioxide Level 36H, Anion Gap 5, Blood Urea Nitrogen 25H, Creatinine 0.8 , Estimat Glomerular Filtration Rate > 60, Glucose Level 205H, Calcium Level 8.8 , Total Bilirubin 1.5H, Direct Bilirubin 0.8H, Aspartate Amino Transf (AST/SGOT ) 127H, Alanine Aminotransferase (ALT/SGPT) 60, Alkaline Phosphatase 255H, Ammonia 105H, Total Protein 8.1, Albumin 2.4L, Globulin 5.7, Albumin/Globulin Ratio 0.4L, Triglycerides Level 161H Height (Feet): 5 Height (Inches): 1.00 Weight (Pounds): 239 General Appearance: no apparent distress EENT: other - Intubated on ventilator Cardiovascular: tachycardia Respiratory/Chest: decreased breath sounds Cristhian Granados MD March 23, 2020 09:28
--- NOTE | 2020-03-23 09:33 | Hematology/Onc Progress Note ---
Assessment/Plan Assessment/Plan Assessment and Recs # Pancytopenia -- multiple etiologies could be related to underlying liver disease, medication-induced, infection versus viral syndrome versus underlying bone marrow cause, in this case, has severe liver disease and cirrhosis, HEP C++ , also cellulitis --> peripheral smear has been ordered and does not show significant abnormalities and none noted --> Medications have been reviewed --> Continue to monitor for improvement, trend cbc --> Hep panel and HIV are both negative --> US abd ordered to r/o cirrhosis and hepatosplenomegaly ->CIRRHOSIS IS NOTED , LARGE SPLEEN --> reverse isolation if ANC is <2000 --> Give neupogen if ANC <1000 --> Transfuse if hgb <7, with 1 unit prbc --> anemia panel ordered as well-->CW acd --> hgb trend 7-->7.1-->8.4-->8.2 -->8.7-->9.9-->9.2-->9.5-->9.1 --> plt 145k-->152-->162k-->149k-->121k-->171k-->149 --> wbc 3.4-->3.5->3.9->4.4-->11-->10.8 --> abx: sameer/rifaximin-->levaquin # Cellulitis of the lower extremities --> continue abx as needed as per id --> Started on IV antibiotics-->azithro/cefepime-->levaquin --> as per surg recs, wound care # Ftt --> remains on mirtazapine # Elevated LFTS --> as per gi --> due to cirrhosis # Respiratory failure --> s/p intubation 03/16 --> prone positioning as needed by pulm # Dvt ppx lovenox sq The timing of this note does not necessarily reflect the time of the patient was seen. Greatly appreciate consultation. Subjective Allergies: Coded Allergies: No Known Allergies (Unverified , 02/29/20) All Systems: reviewed and negative except above Subjective 03/02 no events, no bleeding, hgb 7.1, no hemolysis 03/03 s/p blood, hgb improved to 8.4, stool ob negtive, on abx 03/05 asleep, no acute distress, hgb 8.2 03/06 remains comfortable, on abx, plt remains low 03/07 is on nonrebreather, no night sweats, labs are noted 03/08 labs reviewed, being diuresed, seen by cards, psych, labs noted 03/09 lasix adjusted, wbc remains low at 3.9, reviewed meds, smear 03/10 no night sweats, no bleeding, labs noted, smear noted 03/12 labs noted, none completed, have reordered, cellulitis better 03/13 is continuing with chest pain, cards aware, no further studies until covid neg 03/14 labs noted, no bleeding, diuresis as needed, hgb stable 03/15 alseep is cooperative, no bleeding, meds noted 03/16 no bleeding or chills, hgb 10.8, no night sweats, no major events 03/17 now intubated, no bleeding, labs noted, dw rn 03/19 remains intubated, no bleeding, labs noted, on pressors 03/20 prone posiition, seen by gi and renal, nob leeding, hgb 10.1 03/21 sedated, remains agitated, pulling on 2p restraints, no bleeding 03/22 icu, h/h stable, finished plaq/zithro, no acute distress 03/23 in icu, remains restless no bleeding, labs noted, no bleeding Objective Objective Current Medications Medications (Trade) Dose Ordered Sig/Dolores Route PRN Reason Start Time Stop Time Status Last Admin Dose Admin Acetaminophen (Tylenol) 650 mg Q4H PRN ORAL Temp >100 03/13/20 14:53 04/12/20 14:52 03/19/20 06:25 Acetaminophen (Tylenol) 650 mg Q4H PRN ORAL Mild Pain (Pain Scale 1-3) 03/13/20 14:53 04/12/20 14:52 03/20/20 04:09 Chlorhexidine Gluconate (Lucretia-Hex 2%) 1 applic DAILY@1999 TOPIC 03/13/20 20:00 06/11/20 19:59 03/22/20 20:25 Dextrose (Dextrose 50%) 25 ml Q30M PRN IV Hypoglycemia 03/22/20 18:15 06/20/20 18:14 Dextrose (Dextrose 50%) 50 ml Q30M PRN IV Hypoglycemia 03/22/20 18:15 06/20/20 18:14 Dopamine HCl/ Dextrose 250 ml @ 0 mls/hr Q24H IV 03/16/20 19:30 06/14/20 19:29 03/22/20 20:26 Enoxaparin Sodium (Lovenox) 40 mg DAILY SUBQ 03/19/20 09:00 04/03/20 08:59 03/23/20 08:53 Fentanyl Citrate 2500 mcg/Sodium Chloride 250 ml @ 0 mls/hr Q24H IV 03/22/20 19:30 03/29/20 19:29 03/23/20 03:13 Furosemide (Lasix) 20 mg EVERY 12 HOURS IV 03/22/20 21:00 04/21/20 20:59 03/23/20 08:52 Insulin Aspart (NovoLOG) Q6HR SUBQ 03/16/20 12:00 06/14/20 11:59 03/23/20 05:35 Insulin Detemir (Levemir) 8 units BID SUBQ 03/22/20 19:00 06/20/20 18:59 03/23/20 08:59 Lactulose (Cephulac) 30 gm TID ORAL 03/22/20 13:00 04/21/20 17:59 03/23/20 08:51 Levofloxacin (Levaquin) 750 mg DAILY NG 03/20/20 12:00 03/27/20 11:59 03/23/20 08:52 Levothyroxine Sodium (Synthroid) 50 mcg DAILY IV 03/21/20 09:00 04/17/20 11:59 03/23/20 08:59 Methylprednisolone Sodium Succinate (Solu-MEDROL) 40 mg EVERY 12 HOURS IVP 03/22/20 21:00 06/17/20 20:59 03/23/20 08:52 Metoclopramide HCl (Reglan) 10 mg Q6HR IVP 03/21/20 12:00 04/20/20 11:59 03/23/20 05:34 Midodrine (Pro-Amatine) 5 mg THREE TIMES A DAY NG 03/22/20 18:00 06/20/20 17:59 03/23/20 08:52 Mirtazapine (Remeron) 7.5 mg BEDTIME PRN ORAL SLEEP 03/13/20 14:55 06/11/20 14:54 Non-Formulary Medication (Non-Formulary Med) 1 ea DAILY IV 03/18/20 09:00 04/17/20 08:59 UNV Norepinephrine Bitartrate 16 mg/ Dextrose 500 ml @ 0 mls/hr Q24H IV 03/17/20 21:00 04/16/20 13:02 03/21/20 05:03 Potassium Chloride (K-Dur) 20 meq TWICE A DAY NG 03/23/20 09:30 06/21/20 09:29 Propofol 100 ml @ 0 mls/hr Q24H IV 03/22/20 16:30 03/24/20 16:29 03/23/20 08:28 Rifaximin (Xifaxan) 550 mg EVERY 12 HOURS ORAL 03/18/20 09:00 03/25/20 08:59 03/23/20 08:52 Vasopressin 100 units/Sodium Chloride 100 ml @ 0 mls/hr Q24H PRN IV For hypotension 03/16/20 11:00 04/15/20 10:59 03/19/20 18:03 Last 24 Hour Vital Signs Date Time Temp Pulse Resp B/P (MAP) Pulse Ox O2 Delivery O2 Flow Rate FiO2 03/23/20 08:28 26 125/85 Mechanical Ventilator 90 03/23/20 07:24 90 03/23/20 07:17 108 37 80 03/23/20 06:00 100.0 105 132/58 (82) 94 03/23/20 06:00 26 Mechanical Ventilator 70 03/23/20 06:00 26 121/64 Mechanical Ventilator 70 03/23/20 06:00 121/64 03/23/20 05:30 114 24 123/63 (83) 94 03/23/20 05:00 115 24 115/54 (74) 95 03/23/20 05:00 26 Mechanical Ventilator 70 03/23/20 05:00 25 109/54 Mechanical Ventilator 70 03/23/20 05:00 109/54 03/23/20 04:30 114 26 123/60 (81) 94 03/23/20 04:00 Mechanical Ventilator Mechanical Ventilator 03/23/20 04:00 24 Mechanical Ventilator 70 03/23/20 04:00 23 96/63 Mechanical Ventilator 70 03/23/20 04:00 96/63 03/23/20 04:00 99.0 111 19 102/62 (75) 96 03/23/20 04:00 70 03/23/20 04:00 107 03/23/20 03:30 112 31 97/75 (82) 96 03/23/20 03:22 117 31 80 03/23/20 03:13 28 Mechanical Ventilator 03/23/20 03:13 121/64 03/23/20 03:00 118 22 147/76 (99) 98 03/23/20 03:00 24 Mechanical Ventilator 70 03/23/20 03:00 24 134/66 Mechanical Ventilator 70 03/23/20 03:00 134/66 03/23/20 02:30 115 22 132/70 (90) 96 03/23/20 02:00 115 18 111/68 (82) 97 03/23/20 02:00 28 Mechanical Ventilator 70 03/23/20 02:00 28 108/77 Mechanical Ventilator 70 03/23/20 02:00 108/77 03/23/20 01:30 117 21 117/65 (82) 97 03/23/20 01:15 117 21 147/82 (103) 97 03/23/20 01:00 108 22 170/75 (106) 96 03/23/20 01:00 24 Mechanical Ventilator 70 03/23/20 01:00 28 147/82 Mechanical Ventilator 70 03/23/20 01:00 147/82 03/23/20 00:45 115 16 167/84 (111) 98 03/23/20 00:30 114 21 177/85 (115) 69 03/23/20 00:28 113 19 168/90 (116) 03/23/20 00:15 112 21 161/81 (107) 95 03/23/20 00:00 98.8 105 26 159/85 (109) 95 03/23/20 00:00 Mechanical Ventilator Mechanical Ventilator 03/23/20 00:00 28 Mechanical Ventilator 70 03/23/20 00:00 28 161/81 Mechanical Ventilator 70 03/23/20 00:00 161/81 03/23/20 00:00 112 03/23/20 00:00 70 03/22/20 23:30 108 22 160/92 (114) 98 5/6/20 23:24 108 33 80 5/6/20 23:00 107 20 169/81 (110) 100 20 23:00 28 Mechanical Ventilator 70 20 23:00 26 148/95 Mechanical Ventilator 70 20 23:00 148/95 620 22:30 106 16 152/88 (109) 100 620 22:00 28 Mechanical Ventilator 70 20 22:00 28 150/82 Mechanical Ventilator 70 20 22:00 150/88 620 22:00 97 24 138/82 (100) 98 20 21:45 28 122/55 Mechanical Ventilator 70 20 21:30 28 129/70 Mechanical Ventilator 70 20 21:30 129/70 /20 21:30 96 23 143/83 (103) 100 03/22/20 21:15 28 120/70 Mechanical Ventilator 70 20 21:15 130/73 620 21:00 28 Mechanical Ventilator 70 20 21:00 26 136/74 Mechanical Ventilator 70 20 21:00 138/74 /6/20 21:00 81 25 142/76 (98) 95 20 20:30 76 30 128/70 (89) 99 03/22/20 20:26 70/35 5/6/20 20:00 98.0 75 23 131/66 (87) 99 6/20 20:00 Mechanical Ventilator Mechanical Ventilator 20 20:00 76 5/6/20 20:00 26 Mechanical Ventilator 70 20 20:00 26 100/50 Mechanical Ventilator 70 56/20 20:00 100/50 5/6/20 20:00 70 5/6/20 19:34 67 26 80 5/6/20 19:30 77 25 138/70 (92) 98 6/20 19:30 21 Mechanical Ventilator 620 19:00 70 22 139/74 (95) 94 /6/20 19:00 26 139/74 Mechanical Ventilator 6/20 19:00 139/74 5/6/20 18:30 91/55 5/6/20 18:00 76 26 110/63 (79) 100 5/6/20 18:00 32 110/63 Mechanical Ventilator 03/22/20 18:00 110/63 03/22/20 18:00 26 Mechanical Ventilator 03/22/20 17:30 91 38 132/70 (90) 99 03/22/20 17:12 26 133/70 Mechanical Ventilator 03/22/20 17:00 133/70 03/22/20 17:00 29 Mechanical Ventilator 03/22/20 17:00 87 36 133/70 (91) 98 03/22/20 16:30 87 24 130/69 (89) 97 03/22/20 16:00 70 03/22/20 16:00 130/69 03/22/20 16:00 26 Mechanical Ventilator 03/22/20 16:00 97.4 87 25 123/72 (89) 98 03/22/20 16:00 77 03/22/20 16:00 Mechanical Ventilator Mechanical Ventilator 03/22/20 15:59 26 Mechanical Ventilator 03/22/20 15:30 77 28 108/59 (75) 93 03/22/20 15:12 70 26 80 03/22/20 15:00 68 27 118/69 (85) 96 03/22/20 15:00 118/68 03/22/20 15:00 26 Mechanical Ventilator 03/22/20 14:00 61 26 150/80 (103) 96 03/22/20 14:00 139/80 03/22/20 14:00 26 Mechanical Ventilator 03/22/20 13:09 80 03/22/20 13:00 144/77 03/22/20 13:00 26 Mechanical Ventilator 03/22/20 13:00 65 26 149/82 (104) 96 03/22/20 12:30 66 25 139/80 (99) 96 03/22/20 12:26 84 26 80 03/22/20 12:00 96.8 64 27 152/77 (102) 98 03/22/20 12:00 Mechanical Ventilator Mechanical Ventilator 03/22/20 12:00 147/78 03/22/20 12:00 26 Mechanical Ventilator 03/22/20 12:00 72 03/22/20 11:30 64 26 150/78 (102) 96 03/22/20 11:17 141/73 03/22/20 11:00 65 26 141/82 (101) 96 03/22/20 11:00 118/70 03/22/20 11:00 25 Mechanical Ventilator 03/22/20 10:30 66 26 150/85 (106) 99 03/22/20 10:00 67 25 142/84 (103) 98 03/22/20 10:00 90 03/22/20 10:00 137/83 03/22/20 10:00 25 Mechanical Ventilator 03/22/20 09:30 79 26 90 03/22/20 09:30 80 25 146/82 (103) 93 03/22/20 09:00 69 26 153/88 (109) 96 03/22/20 09:00 152/80 03/22/20 09:00 26 Mechanical Ventilator 03/22/20 08:30 73 33 150/81 (104) 91 03/22/20 08:00 Mechanical Ventilator Mechanical Ventilator 03/22/20 08:00 100 03/22/20 08:00 151/80 03/22/20 08:00 26 Mechanical Ventilator 03/22/20 08:00 101 03/22/20 08:00 96.8 73 26 153/86 (108) 97 03/22/20 07:30 75 27 152/86 (108) 95 03/22/20 07:00 145/80 03/22/20 07:00 25 Mechanical Ventilator 03/22/20 07:00 77 24 146/76 (99) 94 03/22/20 06:40 76 28 100 03/22/20 06:00 130/76 03/22/20 06:00 26 Mechanical Ventilator 100 03/22/20 05:45 76 26 138/72 (94) 95 03/22/20 05:30 78 25 134/70 (91) 96 03/22/20 05:00 92/48 03/22/20 05:00 26 Mechanical Ventilator 100 03/22/20 05:00 86 25 102/52 (69) 95 03/22/20 04:58 68 29 100 03/22/20 04:30 111 21 140/80 (100) 97 03/22/20 04:21 26 Mechanical Ventilator 100 03/22/20 04:00 112 03/22/20 04:00 100 03/22/20 04:00 98.9 111 19 140/81 (100) 99 03/22/20 04:00 100/49 5/6/20 04:00 26 Mechanical Ventilator 100 03/22/20 04:00 Mechanical Ventilator Mechanical Ventilator 03/22/20 03:30 108 26 131/72 (91) 99 03/22/20 03:00 109 24 145/86 (105) 99 03/22/20 03:00 120/60 03/22/20 03:00 26 Mechanical Ventilator 100 03/22/20 02:30 108 26 151/78 (102) 99 03/22/20 02:00 104 27 144/74 (97) 99 03/22/20 02:00 135/75 03/22/20 02:00 26 Mechanical Ventilator 100 03/22/20 01:30 101 23 147/80 (102) 99 03/22/20 01:10 69 27 100 03/22/20 01:00 105/75 03/22/20 01:00 26 Mechanical Ventilator 100 03/22/20 01:00 95 27 146/80 (102) 100 03/22/20 00:30 72 26 145/73 (97) 100 03/22/20 00:15 92 24 148/91 (110) 99 03/22/20 00:00 Mechanical Ventilator Mechanical Ventilator 03/22/20 00:00 145/73 03/22/20 00:00 26 Mechanical Ventilator 100 03/22/20 00:00 100 03/22/20 00:00 97.1 88 23 153/93 (113) 100 03/21/20 23:45 97 23 144/90 (108) 99 03/21/20 23:30 96 21 154/83 (106) 98 03/21/20 23:25 68 03/21/20 23:02 67 28 100 03/21/20 23:00 150/70 03/21/20 23:00 26 Mechanical Ventilator 100 03/21/20 23:00 67 29 150/88 (108) 99 03/21/20 22:30 73 26 136/90 (105) 100 03/21/20 22:00 145/69 03/21/20 22:00 26 Mechanical Ventilator 100 03/21/20 22:00 75 25 163/88 (113) 99 03/21/20 21:30 70 33 168/87 (114) 99 03/21/20 21:00 150/88 03/21/20 21:00 120/68 03/21/20 21:00 150/88 03/21/20 21:00 26 Mechanical Ventilator 100 03/21/20 21:00 54 24 110/64 (79) 100 03/21/20 20:45 58 32 110/74 (86) 99 03/21/20 20:30 66 29 104/63 (77) 88 03/21/20 20:00 100 03/21/20 20:00 Mechanical Ventilator Mechanical Ventilator 03/21/20 20:00 49 03/21/20 20:00 100/58 03/21/20 20:00 26 Mechanical Ventilator 100 03/21/20 20:00 98.5 58 27 122/74 (90) 98 03/21/20 19:30 120/68 03/21/20 19:30 59 28 121/65 (83) 98 03/21/20 19:00 67 25 120/68 (85) 97 03/21/20 19:00 109/61 03/21/20 19:00 26 Mechanical Ventilator 100 03/21/20 18:59 61 26 100 03/21/20 18:44 26 Mechanical Ventilator 100 03/21/20 18:43 26 Mechanical Ventilator 100 03/21/20 18:00 58 26 111/62 (78) 98 03/21/20 18:00 122/69 03/21/20 18:00 26 Mechanical Ventilator 100 03/21/20 17:30 61 27 129/70 (89) 98 03/21/20 17:00 60 27 131/75 (93) 95 03/21/20 17:00 131/75 03/21/20 17:00 26 Mechanical Ventilator 100 03/21/20 16:30 61 28 138/73 (94) 99 03/21/20 16:00 Mechanical Ventilator Mechanical Ventilator 03/21/20 16:00 62 03/21/20 16:00 100 03/21/20 16:00 57 26 132/70 (90) 99 03/21/20 16:00 132/70 03/21/20 16:00 26 Mechanical Ventilator 100 03/21/20 15:30 59 28 138/80 (99) 96 03/21/20 15:09 58 26 100 03/21/20 15:00 56 25 122/74 (90) 96 03/21/20 15:00 122/74 03/21/20 15:00 26 Mechanical Ventilator 100 03/21/20 14:30 61 27 118/69 (85) 65 5/5/20 14:00 62 27 121/70 (87) 96 03/21/20 14:00 121/70 03/21/20 14:00 26 Mechanical Ventilator 100 03/21/20 13:30 68 27 127/70 (89) 98 03/21/20 13:00 69 26 109/67 (81) 96 03/21/20 13:00 109/67 03/21/20 13:00 26 Mechanical Ventilator 100 03/21/20 12:30 75 26 123/70 (87) 93 03/21/20 12:22 20 Mechanical Ventilator 100 03/21/20 12:00 76 28 119/72 (88) 93 03/21/20 12:00 100 03/21/20 12:00 119/72 03/21/20 12:00 26 Mechanical Ventilator 100 03/21/20 12:00 Mechanical Ventilator Mechanical Ventilator 03/21/20 12:00 62 03/21/20 11:45 129/74 03/21/20 11:30 131/75 03/21/20 11:30 60 28 131/75 (93) 92 03/21/20 11:15 133/77 03/21/20 11:14 58 28 100 03/21/20 11:00 59 28 118/70 (86) 90 03/21/20 11:00 118/70 03/21/20 11:00 26 Mechanical Ventilator 100 03/21/20 10:30 66 25 128/74 (92) 90 03/21/20 10:00 60 26 124/71 (88) 97 03/21/20 10:00 150/100 03/21/20 10:00 26 Mechanical Ventilator 100 Intake and Output 03/22/20 03/23/20 19:00 07:00 Intake Total 1112.346 ml 991.096 ml Output Total 1480 ml 1820 ml Balance -367.654 ml -828.904 ml Free Water 90 ml 60 ml IV Total 482.346 ml 436.096 ml Tube Feeding 540 ml 495 ml Output Urine Total 1470 ml 1760 ml Stool Total 10 ml 60 ml Labs Test 03/20/20 15:43 03/21/20 05:18 03/21/20 21:30 03/22/20 04:00 Arterial Blood pH 7.287 (7.350-7.450) 7.325 (7.350-7.450) Arterial Blood Partial Pressure CO2 56.5 mmHg (35.0-45.0) 58.3 mmHg (35.0-45.0) Arterial Blood Partial Pressure O2 76.9 mmHg (75.0-100.0) 148.4 mmHg (75.0-100.0) Arterial Blood HCO3 26.4 mmol/L (22.0-26.0) 29.7 mmol/L (22.0-26.0) Arterial Blood Oxygen Saturation 93.2 % (95-100) 98.6 % (95-100) Arterial Blood Base Excess -0.6 (-2-2) 2.7 (-2-2) Joaquin Test Positive Positive White Blood Count 11.2 K/UL (4.8-10.8) 10.8 K/UL (4.8-10.8) Red Blood Count 2.76 M/UL (4.20-5.40) 2.82 M/UL (4.20-5.40) Hemoglobin 9.2 G/DL (12.0-16.0) 9.5 G/DL (12.0-16.0) Hematocrit 27.9 % (37.0-47.0) 28.9 % (37.0-47.0) Mean Corpuscular Volume 101 FL (80-99) 103 FL (80-99) Mean Corpuscular Hemoglobin 33.5 PG (27.0-31.0) 33.6 PG (27.0-31.0) Mean Corpuscular Hemoglobin Concent 33.1 G/DL (32.0-36.0) 32.8 G/DL (32.0-36.0) Red Cell Distribution Width 17.3 % (11.6-14.8) 17.0 % (11.6-14.8) Platelet Count 161 K/UL (150-450) 149 K/UL (150-450) Mean Platelet Volume 7.4 FL (6.5-10.1) 6.2 FL (6.5-10.1) Neutrophils (%) (Auto) 79.2 % (45.0-75.0) 81.6 % (45.0-75.0) Lymphocytes (%) (Auto) 5.6 % (20.0-45.0) 8.2 % (20.0-45.0) Monocytes (%) (Auto) 14.4 % (1.0-10.0) 9.1 % (1.0-10.0) Eosinophils (%) (Auto) 0.0 % (0.0-3.0) 0.0 % (0.0-3.0) Basophils (%) (Auto) 0.9 % (0.0-2.0) 1.0 % (0.0-2.0) Sodium Level 134 MMOL/L (136-145) 138 MMOL/L (136-145) Potassium Level 4.5 MMOL/L (3.5-5.1) 4.1 MMOL/L (3.5-5.1) Chloride Level 100 MMOL/L (98-107) 102 MMOL/L (98-107) Carbon Dioxide Level 30 MMOL/L (21-32) 34 MMOL/L (21-32) Anion Gap 4 mmol/L (5-15) 2 mmol/L (5-15) Blood Urea Nitrogen 22 mg/dL (7-18) 25 mg/dL (7-18) Creatinine 0.8 MG/DL (0.55-1.30) 0.8 MG/DL (0.55-1.30) Estimat Glomerular Filtration Rate > 60 mL/min (>60) > 60 mL/min (>60) Glucose Level 191 MG/DL (74-106) 208 MG/DL (74-106) Uric Acid 4.5 MG/DL (2.6-7.2) Calcium Level 8.1 MG/DL (8.5-10.1) 8.6 MG/DL (8.5-10.1) Phosphorus Level 3.2 MG/DL (2.5-4.9) 2.7 MG/DL (2.5-4.9) Magnesium Level 2.3 MG/DL (1.8-2.4) 2.4 MG/DL (1.8-2.4) Iron Level 126 ug/dL (50-175) Total Iron Binding Capacity 138 ug/dL (250-450) Percent Iron Saturation 91 % (15-50) Unsaturated Iron Binding 12 ug/dL (112-346) Ferritin 1310 NG/ML (8-388) Total Bilirubin 1.6 MG/DL (0.2-1.0) 1.6 MG/DL (0.2-1.0) Direct Bilirubin 0.8 MG/DL (0.0-0.3) 0.8 MG/DL (0.0-0.3) Aspartate Amino Transf (AST/SGOT) 66 U/L (15-37) 83 U/L (15-37) Alanine Aminotransferase (ALT/SGPT) 26 U/L (12-78) 36 U/L (12-78) Alkaline Phosphatase 122 U/L (46-116) 183 U/L (46-116) C-Reactive Protein, Quantitative 7.5 mg/dL (0.00-0.90) 6.2 mg/dL (0.00-0.90) Pro-B-Type Natriuretic Peptide 47174 pg/mL (0-125) 62525 pg/mL (0-125) Total Protein 8.4 G/DL (6.4-8.2) 8.5 G/DL (6.4-8.2) Albumin 2.4 G/DL (3.4-5.0) 2.5 G/DL (3.4-5.0) Globulin 6.0 g/dL 6.0 g/dL Albumin/Globulin Ratio 0.4 (1.0-2.7) 0.4 (1.0-2.7) Vitamin B12 Level 1597 PG/ML (193-986) Folate 10.0 NG/ML (8.6-58.9) Ammonia 104 umol/L (11-32) Test 03/22/20 06:55 03/23/20 03:34 Arterial Blood pH 7.295 (7.350-7.450) Arterial Blood Partial Pressure CO2 68.5 mmHg (35.0-45.0) Arterial Blood Partial Pressure O2 117.9 mmHg (75.0-100.0) Arterial Blood HCO3 32.6 mmol/L (22.0-26.0) Arterial Blood Oxygen Saturation 99.1 % (95-100) Arterial Blood Base Excess 4.6 (-2-2) Joaquin Test Positive White Blood Count 11.8 K/UL (4.8-10.8) Red Blood Count 2.73 M/UL (4.20-5.40) Hemoglobin 9.1 G/DL (12.0-16.0) Hematocrit 27.7 % (37.0-47.0) Mean Corpuscular Volume 102 FL (80-99) Mean Corpuscular Hemoglobin 33.5 PG (27.0-31.0) Mean Corpuscular Hemoglobin Concent 33.0 G/DL (32.0-36.0) Red Cell Distribution Width 17.1 % (11.6-14.8) Platelet Count 178 K/UL (150-450) Mean Platelet Volume 6.4 FL (6.5-10.1) Neutrophils (%) (Auto) % (45.0-75.0) Lymphocytes (%) (Auto) % (20.0-45.0) Monocytes (%) (Auto) % (1.0-10.0) Eosinophils (%) (Auto) % (0.0-3.0) Basophils (%) (Auto) % (0.0-2.0) Sodium Level 143 MMOL/L (136-145) Potassium Level 3.6 MMOL/L (3.5-5.1) Chloride Level 103 MMOL/L (98-107) Carbon Dioxide Level 36 MMOL/L (21-32) Anion Gap 5 mmol/L (5-15) Blood Urea Nitrogen 25 mg/dL (7-18) Creatinine 0.8 MG/DL (0.55-1.30) Estimat Glomerular Filtration Rate > 60 mL/min (>60) Glucose Level 205 MG/DL (74-106) Calcium Level 8.8 MG/DL (8.5-10.1) Total Bilirubin 1.5 MG/DL (0.2-1.0) Direct Bilirubin 0.8 MG/DL (0.0-0.3) Aspartate Amino Transf (AST/SGOT) 127 U/L (15-37) Alanine Aminotransferase (ALT/SGPT) 60 U/L (12-78) Alkaline Phosphatase 255 U/L (46-116) Ammonia 105 umol/L (11-32) Total Protein 8.1 G/DL (6.4-8.2) Albumin 2.4 G/DL (3.4-5.0) Globulin 5.7 g/dL Albumin/Globulin Ratio 0.4 (1.0-2.7) Triglycerides Level 161 MG/DL (30-150) Height (Feet): 5 Height (Inches): 1.00 Weight (Pounds): 239 Objective Physical Exam: Vitals: reviewed General: NAD HEENT: nc, at Neck: supple Chest: crackles b/l, mech breath sounds ++intubated Cardiovascular: RRR, no s3, s4 EXT ++ Significant edema and erythema bilateral lower extremity, patient also has blistering on both feet given the edema, whittish overcrust/crusting++ Neurologic: sedated Skin: other - As above Brett Mcclain MD March 23, 2020 09:33
--- NOTE | 2020-03-23 11:20 | General Progress Note ---
Assessment/Plan Status: progressing, unchanged Assessment/Plan: macrocytic anemia elevated LFTS cirrhosis cellulitis elevated Ammonia levels respiratory distress>>> now failure COVID positive pna NGTF abd us>> reviewed Xifaxan fu stool ob>>>neg GI procedures if needed abx per id hepatitis panel>>>>>positive for hep C>>> needs out patient fu poor prognosis resume lactulose BID ammonia level in am will fu Subjective ROS Limited/Unobtainable: No Allergies: Coded Allergies: No Known Allergies (Unverified , 02/29/20) Objective Last 24 Hour Vital Signs Date Time Temp Pulse Resp B/P (MAP) Pulse Ox O2 Delivery O2 Flow Rate FiO2 03/23/20 11:05 95 32 70 03/23/20 10:00 80 03/23/20 09:56 90 27 80 03/23/20 08:28 26 125/85 Mechanical Ventilator 90 03/23/20 08:00 90 03/23/20 07:24 90 03/23/20 07:17 108 37 80 03/23/20 06:00 100.0 105 132/58 (82) 94 03/23/20 06:00 26 Mechanical Ventilator 70 03/23/20 06:00 26 121/64 Mechanical Ventilator 70 03/23/20 06:00 121/64 03/23/20 05:30 114 24 123/63 (83) 94 03/23/20 05:00 115 24 115/54 (74) 95 03/23/20 05:00 26 Mechanical Ventilator 70 03/23/20 05:00 25 109/54 Mechanical Ventilator 70 03/23/20 05:00 109/54 03/23/20 04:30 114 26 123/60 (81) 94 03/23/20 04:00 Mechanical Ventilator Mechanical Ventilator 03/23/20 04:00 24 Mechanical Ventilator 70 03/23/20 04:00 23 96/63 Mechanical Ventilator 70 03/23/20 04:00 96/63 03/23/20 04:00 99.0 111 19 102/62 (75) 96 03/23/20 04:00 70 03/23/20 04:00 107 03/23/20 03:30 112 31 97/75 (82) 96 03/23/20 03:22 117 31 80 03/23/20 03:13 28 Mechanical Ventilator 03/23/20 03:13 121/64 03/23/20 03:00 118 22 147/76 (99) 98 03/23/20 03:00 24 Mechanical Ventilator 70 03/23/20 03:00 24 134/66 Mechanical Ventilator 70 03/23/20 03:00 134/66 03/23/20 02:30 115 22 132/70 (90) 96 03/23/20 02:00 115 18 111/68 (82) 97 03/23/20 02:00 28 Mechanical Ventilator 70 03/23/20 02:00 28 108/77 Mechanical Ventilator 70 03/23/20 02:00 108/77 03/23/20 01:30 117 21 117/65 (82) 97 03/23/20 01:15 117 21 147/82 (103) 97 03/23/20 01:00 108 22 170/75 (106) 96 03/23/20 01:00 24 Mechanical Ventilator 70 03/23/20 01:00 28 147/82 Mechanical Ventilator 70 03/23/20 01:00 147/82 03/23/20 00:45 115 16 167/84 (111) 98 03/23/20 00:30 114 21 177/85 (115) 69 03/23/20 00:28 113 19 168/90 (116) 03/23/20 00:15 112 21 161/81 (107) 95 03/23/20 00:00 98.8 105 26 159/85 (109) 95 03/23/20 00:00 Mechanical Ventilator Mechanical Ventilator 03/23/20 00:00 28 Mechanical Ventilator 70 03/23/20 00:00 28 161/81 Mechanical Ventilator 70 03/23/20 00:00 161/81 03/23/20 00:00 112 03/23/20 00:00 70 03/22/20 23:30 108 22 160/92 (114) 98 03/22/20 23:24 108 33 80 03/22/20 23:00 107 20 169/81 (110) 100 03/22/20 23:00 28 Mechanical Ventilator 70 03/22/20 23:00 26 148/95 Mechanical Ventilator 70 03/22/20 23:00 148/95 03/22/20 22:30 106 16 152/88 (109) 100 03/22/20 22:00 28 Mechanical Ventilator 70 03/22/20 22:00 28 150/82 Mechanical Ventilator 70 5/6/20 22:00 150/88 5/6/20 22:00 97 24 138/82 (100) 98 /6/20 21:45 28 122/55 Mechanical Ventilator 70 5/6/20 21:30 28 129/70 Mechanical Ventilator 70 5/6/20 21:30 129/70 5/6/20 21:30 96 23 143/83 (103) 100 6/20 21:15 28 120/70 Mechanical Ventilator 70 6/20 21:15 130/73 5/6/20 21:00 28 Mechanical Ventilator 70 /6/20 21:00 26 136/74 Mechanical Ventilator 70 6/20 21:00 138/74 5/6/20 21:00 81 25 142/76 (98) 95 20 20:30 76 30 128/70 (89) 99 /6/20 20:26 70/35 5/6/20 20:00 98.0 75 23 131/66 (87) 99 20 20:00 Mechanical Ventilator Mechanical Ventilator 20 20:00 76 620 20:00 26 Mechanical Ventilator 70 20 20:00 26 100/50 Mechanical Ventilator 70 56/20 20:00 100/50 5/6/20 20:00 70 20 19:34 67 26 80 5/6/20 19:30 77 25 138/70 (92) 98 6/20 19:30 21 Mechanical Ventilator 20 19:00 70 22 139/74 (95) 94 520 19:00 26 139/74 Mechanical Ventilator 20 19:00 139/74 5/6/20 18:30 91/55 5/6/20 18:00 76 26 110/63 (79) 100 5/6/20 18:00 32 110/63 Mechanical Ventilator 620 18:00 110/63 5/6/20 18:00 26 Mechanical Ventilator 20 17:30 91 38 132/70 (90) 99 /6/20 17:12 26 133/70 Mechanical Ventilator 620 17:00 133/70 5/6/20 17:00 29 Mechanical Ventilator 620 17:00 87 36 133/70 (91) 98 5/6/20 16:30 87 24 130/69 (89) 97 03/22/20 16:00 70 03/22/20 16:00 130/69 03/22/20 16:00 26 Mechanical Ventilator 03/22/20 16:00 97.4 87 25 123/72 (89) 98 03/22/20 16:00 77 03/22/20 16:00 Mechanical Ventilator Mechanical Ventilator 03/22/20 15:59 26 Mechanical Ventilator 03/22/20 15:30 77 28 108/59 (75) 93 03/22/20 15:12 70 26 80 03/22/20 15:00 68 27 118/69 (85) 96 03/22/20 15:00 118/68 03/22/20 15:00 26 Mechanical Ventilator 03/22/20 14:00 61 26 150/80 (103) 96 03/22/20 14:00 139/80 03/22/20 14:00 26 Mechanical Ventilator 03/22/20 13:09 80 03/22/20 13:00 144/77 03/22/20 13:00 26 Mechanical Ventilator 03/22/20 13:00 65 26 149/82 (104) 96 03/22/20 12:30 66 25 139/80 (99) 96 03/22/20 12:26 84 26 80 03/22/20 12:00 96.8 64 27 152/77 (102) 98 03/22/20 12:00 Mechanical Ventilator Mechanical Ventilator 03/22/20 12:00 147/78 03/22/20 12:00 26 Mechanical Ventilator 03/22/20 12:00 72 03/22/20 11:30 64 26 150/78 (102) 96 Intake and Output 03/22/20 03/23/20 19:00 07:00 Intake Total 1112.346 ml 991.096 ml Output Total 1480 ml 1820 ml Balance -367.654 ml -828.904 ml Free Water 90 ml 60 ml IV Total 482.346 ml 436.096 ml Tube Feeding 540 ml 495 ml Output Urine Total 1470 ml 1760 ml Stool Total 10 ml 60 ml Laboratory Tests 03/23/20 03:34: White Blood Count 11.8H, Red Blood Count 2.73L, Hemoglobin 9.1L, Hematocrit 27.7L, Mean Corpuscular Volume 102H, Mean Corpuscular Hemoglobin 33.5H, Mean Corpuscular Hemoglobin Concent 33.0, Red Cell Distribution Width 17.1H, Platelet Count 178, Mean Platelet Volume 6.4L, Neutrophils (%) (Auto) , Lymphocytes (%) (Auto) , Monocytes (%) (Auto) , Eosinophils (%) (Auto) , Basophils (%) (Auto) , Sodium Level 143, Potassium Level 3.6, Chloride Level 103 , Carbon Dioxide Level 36H, Anion Gap 5, Blood Urea Nitrogen 25H, Creatinine 0.8 , Estimat Glomerular Filtration Rate > 60, Glucose Level 205H, Calcium Level 8.8 , Total Bilirubin 1.5H, Direct Bilirubin 0.8H, Aspartate Amino Transf (AST/SGOT ) 127H, Alanine Aminotransferase (ALT/SGPT) 60, Alkaline Phosphatase 255H, Ammonia 105H, Total Protein 8.1, Albumin 2.4L, Globulin 5.7, Albumin/Globulin Ratio 0.4L, Triglycerides Level 161H 03/23/20 09:31: Arterial Blood pH 7.358, Arterial Blood Partial Pressure CO2 66.7*H, Arterial Blood Partial Pressure O2 106.3H, Arterial Blood HCO3 36.7H, Arterial Blood Oxygen Saturation 97.4, Arterial Blood Base Excess 9.3*H, Joaquin Test Positive Height (Feet): 5 Height (Inches): 1.00 Weight (Pounds): 239 General Appearance: no apparent distress EENT: normal ENT inspection Neck: supple Cardiovascular: normal rate Respiratory/Chest: decreased breath sounds Abdomen: normal bowel sounds, non tender, soft Extremities: non-tender Tam Spicer MD March 23, 2020 11:20
[2020-03-23] MEDS: DOPamine 400mg/250ml 250 ML IV SCH ×2 (11:41→23:51)
--- NOTE | 2020-03-23 16:40 | General Progress Note ---
Assessment/Plan Problem List: (1) Cellulitis ICD Codes: L03.90 - Cellulitis, unspecified SNOMED: [id number] Qualifiers: Qualified Codes: L03.119 - Cellulitis of unspecified part of limb Status: progressing, unchanged Assessment/Plan: consulted dr hall for rx of elevated ammonia cellulitis lower extremity afebrile sepsis anemia cirrhosis reviewed chart and labs elevated trop 0.4 .i Subjective ROS Limited/Unobtainable: Yes Allergies: Coded Allergies: No Known Allergies (Unverified , 02/29/20) Objective Last 24 Hour Vital Signs Date Time Temp Pulse Resp B/P (MAP) Pulse Ox O2 Delivery O2 Flow Rate FiO2 03/23/20 16:03 75 03/23/20 16:00 Mechanical Ventilator Mechanical Ventilator 03/23/20 16:00 97.7 76 29 127/63 (84) 97 03/23/20 15:30 76 26 120/61 (80) 97 03/23/20 15:04 85 26 50 03/23/20 15:00 26 Mechanical Ventilator 03/23/20 15:00 24 124/72 Mechanical Ventilator 03/23/20 15:00 124/72 03/23/20 15:00 96 26 124/72 (89) 97 03/23/20 14:53 26 Mechanical Ventilator 03/23/20 14:51 27 123/79 Mechanical Ventilator 03/23/20 14:30 106 18 107/73 (84) 97 03/23/20 14:00 98 26 126/75 (92) 96 03/23/20 14:00 25 Mechanical Ventilator 03/23/20 14:00 26 114/52 Mechanical Ventilator 03/23/20 14:00 114/52 03/23/20 13:30 90 26 120/57 (78) 100 03/23/20 13:29 60 03/23/20 13:24 107 36 60 03/23/20 13:00 25 Mechanical Ventilator 03/23/20 13:00 25 120/57 Mechanical Ventilator 03/23/20 13:00 120/57 03/23/20 13:00 90 26 120/57 (78) 100 03/23/20 12:30 100 119/65 (83) 99 03/23/20 12:00 Mechanical Ventilator Mechanical Ventilator 03/23/20 12:00 89 108/61 (77) 99 03/23/20 12:00 26 Mechanical Ventilator 03/23/20 12:00 28 117/52 Mechanical Ventilator 03/23/20 12:00 117/52 03/23/20 12:00 96 03/23/20 12:00 70 03/23/20 12:00 98.2 03/23/20 11:41 118/81 03/23/20 11:40 109/51 03/23/20 11:30 103 109/51 (70) 99 03/23/20 11:05 95 32 70 03/23/20 11:00 26 Mechanical Ventilator 03/23/20 11:00 26 109/59 Mechanical Ventilator 03/23/20 11:00 109/59 03/23/20 11:00 104 109/59 (76) 99 03/23/20 10:00 80 03/23/20 10:00 96 143/73 (96) 100 03/23/20 10:00 25 Mechanical Ventilator 03/23/20 10:00 26 143/73 Mechanical Ventilator 03/23/20 10:00 143/73 03/23/20 09:56 90 27 80 03/23/20 09:30 78 139/64 (89) 99 03/23/20 09:30 139/64 03/23/20 09:00 76 161/80 (107) 99 03/23/20 09:00 26 Mechanical Ventilator 03/23/20 09:00 26 75/31 Mechanical Ventilator 03/23/20 09:00 75/31 03/23/20 08:45 82/42 03/23/20 08:30 79 75/31 (46) 100 03/23/20 08:28 26 125/85 Mechanical Ventilator 90 03/23/20 08:27 26 98/41 Mechanical Ventilator 03/23/20 08:15 26 134/85 Mechanical Ventilator 03/23/20 08:00 98.9 106 134/85 (101) 99 03/23/20 08:00 Mechanical Ventilator Mechanical Ventilator 03/23/20 08:00 96 03/23/20 08:00 26 Mechanical Ventilator 03/23/20 08:00 26 132/62 Mechanical Ventilator 03/23/20 08:00 90 03/23/20 07:30 104 134/64 (87) 81 03/23/20 07:24 90 03/23/20 07:17 108 37 80 03/23/20 07:00 108 121/64 (83) 93 03/23/20 07:00 26 Mechanical Ventilator 03/23/20 07:00 26 121/64 Mechanical Ventilator 03/23/20 06:00 100.0 105 132/58 (82) 94 03/23/20 06:00 26 Mechanical Ventilator 70 03/23/20 06:00 26 121/64 Mechanical Ventilator 70 03/23/20 06:00 121/64 03/23/20 05:30 114 24 123/63 (83) 94 03/23/20 05:00 115 24 115/54 (74) 95 03/23/20 05:00 26 Mechanical Ventilator 70 03/23/20 05:00 25 109/54 Mechanical Ventilator 70 03/23/20 05:00 109/54 03/23/20 04:30 114 26 123/60 (81) 94 03/23/20 04:00 Mechanical Ventilator Mechanical Ventilator 03/23/20 04:00 24 Mechanical Ventilator 70 03/23/20 04:00 23 96/63 Mechanical Ventilator 70 03/23/20 04:00 96/63 03/23/20 04:00 99.0 111 19 102/62 (75) 96 03/23/20 04:00 70 03/23/20 04:00 107 03/23/20 03:30 112 31 97/75 (82) 96 03/23/20 03:22 117 31 80 03/23/20 03:13 28 Mechanical Ventilator 03/23/20 03:13 121/64 03/23/20 03:00 118 22 147/76 (99) 98 03/23/20 03:00 24 Mechanical Ventilator 70 03/23/20 03:00 24 134/66 Mechanical Ventilator 70 03/23/20 03:00 134/66 03/23/20 02:30 115 22 132/70 (90) 96 03/23/20 02:00 115 18 111/68 (82) 97 03/23/20 02:00 28 Mechanical Ventilator 70 03/23/20 02:00 28 108/77 Mechanical Ventilator 70 03/23/20 02:00 108/77 03/23/20 01:30 117 21 117/65 (82) 97 03/23/20 01:15 117 21 147/82 (103) 97 03/23/20 01:00 108 22 170/75 (106) 96 03/23/20 01:00 24 Mechanical Ventilator 70 03/23/20 01:00 28 147/82 Mechanical Ventilator 70 03/23/20 01:00 147/82 03/23/20 00:45 115 16 167/84 (111) 98 03/23/20 00:30 114 21 177/85 (115) 69 03/23/20 00:28 113 19 168/90 (116) 03/23/20 00:15 112 21 161/81 (107) 95 03/23/20 00:00 98.8 105 26 159/85 (109) 95 03/23/20 00:00 Mechanical Ventilator Mechanical Ventilator 03/23/20 00:00 28 Mechanical Ventilator 70 03/23/20 00:00 28 161/81 Mechanical Ventilator 70 03/23/20 00:00 161/81 03/23/20 00:00 112 03/23/20 00:00 70 03/22/20 23:30 108 22 160/92 (114) 98 03/22/20 23:24 108 33 80 03/22/20 23:00 107 20 169/81 (110) 100 03/22/20 23:00 28 Mechanical Ventilator 70 03/22/20 23:00 26 148/95 Mechanical Ventilator 70 03/22/20 23:00 148/95 03/22/20 22:30 106 16 152/88 (109) 100 03/22/20 22:00 28 Mechanical Ventilator 70 03/22/20 22:00 28 150/82 Mechanical Ventilator 70 03/22/20 22:00 150/88 03/22/20 22:00 97 24 138/82 (100) 98 03/22/20 21:45 28 122/55 Mechanical Ventilator 70 03/22/20 21:30 28 129/70 Mechanical Ventilator 70 03/22/20 21:30 129/70 03/22/20 21:30 96 23 143/83 (103) 100 03/22/20 21:15 28 120/70 Mechanical Ventilator 70 03/22/20 21:15 130/73 03/22/20 21:00 28 Mechanical Ventilator 70 03/22/20 21:00 26 136/74 Mechanical Ventilator 70 03/22/20 21:00 138/74 03/22/20 21:00 81 25 142/76 (98) 95 03/22/20 20:30 76 30 128/70 (89) 99 03/22/20 20:26 70/35 03/22/20 20:00 98.0 75 23 131/66 (87) 99 03/22/20 20:00 Mechanical Ventilator Mechanical Ventilator 03/22/20 20:00 76 03/22/20 20:00 26 Mechanical Ventilator 70 03/22/20 20:00 26 100/50 Mechanical Ventilator 70 03/22/20 20:00 100/50 03/22/20 20:00 70 03/22/20 19:34 67 26 80 03/22/20 19:30 77 25 138/70 (92) 98 03/22/20 19:30 21 Mechanical Ventilator 03/22/20 19:00 70 22 139/74 (95) 94 03/22/20 19:00 26 139/74 Mechanical Ventilator 03/22/20 19:00 139/74 03/22/20 18:30 91/55 03/22/20 18:00 76 26 110/63 (79) 100 03/22/20 18:00 32 110/63 Mechanical Ventilator 03/22/20 18:00 110/63 03/22/20 18:00 26 Mechanical Ventilator 03/22/20 17:30 91 38 132/70 (90) 99 03/22/20 17:12 26 133/70 Mechanical Ventilator 03/22/20 17:00 133/70 03/22/20 17:00 29 Mechanical Ventilator 03/22/20 17:00 87 36 133/70 (91) 98 Intake and Output 03/22/20 03/23/20 19:00 07:00 Intake Total 1112.346 ml 1024.842 ml Output Total 1480 ml 1820 ml Balance -367.654 ml -795.158 ml Free Water 90 ml 60 ml IV Total 482.346 ml 469.842 ml Tube Feeding 540 ml 495 ml Output Urine Total 1470 ml 1760 ml Stool Total 10 ml 60 ml Laboratory Tests 03/23/20 03:34: White Blood Count 11.8H, Red Blood Count 2.73L, Hemoglobin 9.1L, Hematocrit 27.7L, Mean Corpuscular Volume 102H, Mean Corpuscular Hemoglobin 33.5H, Mean Corpuscular Hemoglobin Concent 33.0, Red Cell Distribution Width 17.1H, Platelet Count 178, Mean Platelet Volume 6.4L, Neutrophils (%) (Auto) , Lymphocytes (%) (Auto) , Monocytes (%) (Auto) , Eosinophils (%) (Auto) , Basophils (%) (Auto) , Sodium Level 143, Potassium Level 3.6, Chloride Level 103 , Carbon Dioxide Level 36H, Anion Gap 5, Blood Urea Nitrogen 25H, Creatinine 0.8 , Estimat Glomerular Filtration Rate > 60, Glucose Level 205H, Calcium Level 8.8 , Total Bilirubin 1.5H, Direct Bilirubin 0.8H, Aspartate Amino Transf (AST/SGOT ) 127H, Alanine Aminotransferase (ALT/SGPT) 60, Alkaline Phosphatase 255H, Ammonia 105H, Total Protein 8.1, Albumin 2.4L, Globulin 5.7, Albumin/Globulin Ratio 0.4L, Triglycerides Level 161H 03/23/20 09:31: Arterial Blood pH 7.358, Arterial Blood Partial Pressure CO2 66.7*H, Arterial Blood Partial Pressure O2 106.3H, Arterial Blood HCO3 36.7H, Arterial Blood Oxygen Saturation 97.4, Arterial Blood Base Excess 9.3*H, Joaquin Test Positive Height (Feet): 5 Height (Inches): 1.00 Weight (Pounds): 239 Celso Moreno MD March 23, 2020 16:40
--- NOTE | 2020-03-23 18:26 | Surgery Progress Note ---
Surgery Progress Note Subjective Additional Comments slightly improved 70% peep 16 tolerating tube feeds Objective Last 24 Hour Vital Signs Date Time Temp Pulse Resp B/P (MAP) Pulse Ox O2 Delivery O2 Flow Rate FiO2 03/23/20 18:00 77 26 124/76 (92) 95 03/23/20 18:00 24 Mechanical Ventilator 03/23/20 18:00 24 124/71 Mechanical Ventilator 03/23/20 18:00 124/71 03/23/20 17:35 82 25 142/70 (94) 97 03/23/20 17:09 60 03/23/20 17:00 26 Mechanical Ventilator 03/23/20 17:00 26 125/68 Mechanical Ventilator 03/23/20 17:00 125/68 03/23/20 17:00 80 25 125/68 (87) 94 03/23/20 16:54 77 26 40 03/23/20 16:30 76 26 131/66 (87) 96 03/23/20 16:03 75 03/23/20 16:00 60 03/23/20 16:00 25 Mechanical Ventilator 03/23/20 16:00 25 127/63 Mechanical Ventilator 03/23/20 16:00 127/63 03/23/20 16:00 Mechanical Ventilator Mechanical Ventilator 03/23/20 16:00 97.7 76 29 127/63 (84) 97 03/23/20 15:30 76 26 120/61 (80) 97 03/23/20 15:30 74/32 03/23/20 15:04 85 26 50 03/23/20 15:00 26 Mechanical Ventilator 03/23/20 15:00 24 124/72 Mechanical Ventilator 03/23/20 15:00 124/72 03/23/20 15:00 96 26 124/72 (89) 97 03/23/20 14:53 26 Mechanical Ventilator 03/23/20 14:51 27 123/79 Mechanical Ventilator 03/23/20 14:30 106 18 107/73 (84) 97 03/23/20 14:00 98 26 126/75 (92) 96 03/23/20 14:00 25 Mechanical Ventilator 03/23/20 14:00 26 114/52 Mechanical Ventilator 03/23/20 14:00 114/52 03/23/20 13:30 90 26 120/57 (78) 100 03/23/20 13:29 60 03/23/20 13:24 107 36 60 03/23/20 13:00 25 Mechanical Ventilator 03/23/20 13:00 25 120/57 Mechanical Ventilator 03/23/20 13:00 120/57 03/23/20 13:00 90 26 120/57 (78) 100 03/23/20 12:30 100 119/65 (83) 99 03/23/20 12:00 Mechanical Ventilator Mechanical Ventilator 03/23/20 12:00 89 108/61 (77) 99 03/23/20 12:00 26 Mechanical Ventilator 03/23/20 12:00 28 117/52 Mechanical Ventilator 03/23/20 12:00 117/52 03/23/20 12:00 96 03/23/20 12:00 70 03/23/20 12:00 98.2 03/23/20 11:41 118/81 03/23/20 11:40 109/51 03/23/20 11:30 103 109/51 (70) 99 03/23/20 11:05 95 32 70 03/23/20 11:00 26 Mechanical Ventilator 03/23/20 11:00 26 109/59 Mechanical Ventilator 03/23/20 11:00 109/59 03/23/20 11:00 104 109/59 (76) 99 03/23/20 10:00 80 03/23/20 10:00 96 143/73 (96) 100 03/23/20 10:00 25 Mechanical Ventilator 03/23/20 10:00 26 143/73 Mechanical Ventilator 03/23/20 10:00 143/73 03/23/20 09:56 90 27 80 03/23/20 09:30 78 139/64 (89) 99 03/23/20 09:30 139/64 03/23/20 09:00 76 161/80 (107) 99 03/23/20 09:00 26 Mechanical Ventilator 03/23/20 09:00 26 75/31 Mechanical Ventilator 03/23/20 09:00 75/31 03/23/20 08:45 82/42 03/23/20 08:30 79 75/31 (46) 100 03/23/20 08:28 26 125/85 Mechanical Ventilator 90 03/23/20 08:27 26 98/41 Mechanical Ventilator 03/23/20 08:15 26 134/85 Mechanical Ventilator 03/23/20 08:00 98.9 106 134/85 (101) 99 03/23/20 08:00 Mechanical Ventilator Mechanical Ventilator 03/23/20 08:00 96 03/23/20 08:00 26 Mechanical Ventilator 03/23/20 08:00 26 132/62 Mechanical Ventilator 03/23/20 08:00 90 03/23/20 07:30 104 134/64 (87) 81 03/23/20 07:24 90 03/23/20 07:17 108 37 80 03/23/20 07:00 108 121/64 (83) 93 03/23/20 07:00 26 Mechanical Ventilator 03/23/20 07:00 26 121/64 Mechanical Ventilator 03/23/20 06:00 100.0 105 132/58 (82) 94 03/23/20 06:00 26 Mechanical Ventilator 70 03/23/20 06:00 26 121/64 Mechanical Ventilator 70 03/23/20 06:00 121/64 03/23/20 05:30 114 24 123/63 (83) 94 03/23/20 05:00 115 24 115/54 (74) 95 03/23/20 05:00 26 Mechanical Ventilator 70 03/23/20 05:00 25 109/54 Mechanical Ventilator 70 03/23/20 05:00 109/54 03/23/20 04:30 114 26 123/60 (81) 94 03/23/20 04:00 Mechanical Ventilator Mechanical Ventilator 03/23/20 04:00 24 Mechanical Ventilator 70 03/23/20 04:00 23 96/63 Mechanical Ventilator 70 03/23/20 04:00 96/63 03/23/20 04:00 99.0 111 19 102/62 (75) 96 03/23/20 04:00 70 03/23/20 04:00 107 03/23/20 03:30 112 31 97/75 (82) 96 03/23/20 03:22 117 31 80 03/23/20 03:13 28 Mechanical Ventilator 03/23/20 03:13 121/64 03/23/20 03:00 118 22 147/76 (99) 98 03/23/20 03:00 24 Mechanical Ventilator 70 03/23/20 03:00 24 134/66 Mechanical Ventilator 70 03/23/20 03:00 134/66 03/23/20 02:30 115 22 132/70 (90) 96 03/23/20 02:00 115 18 111/68 (82) 97 03/23/20 02:00 28 Mechanical Ventilator 70 03/23/20 02:00 28 108/77 Mechanical Ventilator 70 03/23/20 02:00 108/77 03/23/20 01:30 117 21 117/65 (82) 97 03/23/20 01:15 117 21 147/82 (103) 97 03/23/20 01:00 108 22 170/75 (106) 96 03/23/20 01:00 24 Mechanical Ventilator 70 03/23/20 01:00 28 147/82 Mechanical Ventilator 70 03/23/20 01:00 147/82 03/23/20 00:45 115 16 167/84 (111) 98 03/23/20 00:30 114 21 177/85 (115) 69 03/23/20 00:28 113 19 168/90 (116) 03/23/20 00:15 112 21 161/81 (107) 95 03/23/20 00:00 98.8 105 26 159/85 (109) 95 03/23/20 00:00 Mechanical Ventilator Mechanical Ventilator 03/23/20 00:00 28 Mechanical Ventilator 70 03/23/20 00:00 28 161/81 Mechanical Ventilator 70 03/23/20 00:00 161/81 03/23/20 00:00 112 03/23/20 00:00 70 03/22/20 23:30 108 22 160/92 (114) 98 03/22/20 23:24 108 33 80 03/22/20 23:00 107 20 169/81 (110) 100 03/22/20 23:00 28 Mechanical Ventilator 70 03/22/20 23:00 26 148/95 Mechanical Ventilator 70 03/22/20 23:00 148/95 03/22/20 22:30 106 16 152/88 (109) 100 03/22/20 22:00 28 Mechanical Ventilator 70 03/22/20 22:00 28 150/82 Mechanical Ventilator 70 03/22/20 22:00 150/88 03/22/20 22:00 97 24 138/82 (100) 98 03/22/20 21:45 28 122/55 Mechanical Ventilator 70 03/22/20 21:30 28 129/70 Mechanical Ventilator 70 03/22/20 21:30 129/70 03/22/20 21:30 96 23 143/83 (103) 100 03/22/20 21:15 28 120/70 Mechanical Ventilator 70 03/22/20 21:15 130/73 03/22/20 21:00 28 Mechanical Ventilator 70 03/22/20 21:00 26 136/74 Mechanical Ventilator 70 03/22/20 21:00 138/74 03/22/20 21:00 81 25 142/76 (98) 95 03/22/20 20:30 76 30 128/70 (89) 99 03/22/20 20:26 70/35 03/22/20 20:00 98.0 75 23 131/66 (87) 99 03/22/20 20:00 Mechanical Ventilator Mechanical Ventilator 03/22/20 20:00 76 03/22/20 20:00 26 Mechanical Ventilator 70 03/22/20 20:00 26 100/50 Mechanical Ventilator 70 03/22/20 20:00 100/50 03/22/20 20:00 70 03/22/20 19:34 67 26 80 03/22/20 19:30 77 25 138/70 (92) 98 03/22/20 19:30 21 Mechanical Ventilator 03/22/20 19:00 70 22 139/74 (95) 94 03/22/20 19:00 26 139/74 Mechanical Ventilator 03/22/20 19:00 139/74 03/22/20 18:30 91/55 I&O Intake and Output 03/22/20 03/23/20 19:00 07:00 Intake Total 1112.346 ml 1024.842 ml Output Total 1480 ml 1820 ml Balance -367.654 ml -795.158 ml Free Water 90 ml 60 ml IV Total 482.346 ml 469.842 ml Tube Feeding 540 ml 495 ml Output Urine Total 1470 ml 1760 ml Stool Total 10 ml 60 ml Dressing: dry, other Wound: clean Cardiovascular: RSR Respiratory: decreased breath sounds Abdomen: soft, non-tender, present bowel sounds Extremities: edema, no cyanosis, other Laboratory Tests Test 03/23/20 03:34 03/23/20 09:31 White Blood Count 11.8 K/UL (4.8-10.8) H Red Blood Count 2.73 M/UL (4.20-5.40) L Hemoglobin 9.1 G/DL (12.0-16.0) L Hematocrit 27.7 % (37.0-47.0) L Mean Corpuscular Volume 102 FL (80-99) H Mean Corpuscular Hemoglobin 33.5 PG (27.0-31.0) H Mean Corpuscular Hemoglobin Concent 33.0 G/DL (32.0-36.0) Red Cell Distribution Width 17.1 % (11.6-14.8) H Platelet Count 178 K/UL (150-450) Mean Platelet Volume 6.4 FL (6.5-10.1) L Neutrophils (%) (Auto) % (45.0-75.0) Lymphocytes (%) (Auto) % (20.0-45.0) Monocytes (%) (Auto) % (1.0-10.0) Eosinophils (%) (Auto) % (0.0-3.0) Basophils (%) (Auto) % (0.0-2.0) Sodium Level 143 MMOL/L (136-145) Potassium Level 3.6 MMOL/L (3.5-5.1) Chloride Level 103 MMOL/L (98-107) Carbon Dioxide Level 36 MMOL/L (21-32) H Anion Gap 5 mmol/L (5-15) Blood Urea Nitrogen 25 mg/dL (7-18) H Creatinine 0.8 MG/DL (0.55-1.30) Estimat Glomerular Filtration Rate > 60 mL/min (>60) Glucose Level 205 MG/DL (74-106) H Calcium Level 8.8 MG/DL (8.5-10.1) Total Bilirubin 1.5 MG/DL (0.2-1.0) H Direct Bilirubin 0.8 MG/DL (0.0-0.3) H Aspartate Amino Transf (AST/SGOT) 127 U/L (15-37) H Alanine Aminotransferase (ALT/SGPT) 60 U/L (12-78) Alkaline Phosphatase 255 U/L (46-116) H Ammonia 105 umol/L (11-32) H Total Protein 8.1 G/DL (6.4-8.2) Albumin 2.4 G/DL (3.4-5.0) L Globulin 5.7 g/dL Albumin/Globulin Ratio 0.4 (1.0-2.7) L Triglycerides Level 161 MG/DL (30-150) H Arterial Blood pH 7.358 (7.350-7.450) Arterial Blood Partial Pressure CO2 66.7 mmHg (35.0-45.0) *H Arterial Blood Partial Pressure O2 106.3 mmHg (75.0-100.0) H Arterial Blood HCO3 36.7 mmol/L (22.0-26.0) H Arterial Blood Oxygen Saturation 97.4 % (95-100) Arterial Blood Base Excess 9.3 (-2-2) *H Joaquin Test Positive Plan Problems: (1) Cellulitis Assessment & Plan: bilateral lower extremity cellulitis / edema chronic venous status changes dermatitis no abscess no purulent drainage ulcerations forming. keep lower extremity elevated while in bed apply skin protectant / moisturizing cream daily okay to shower okay to wrap soft after cream abx as per ID for cellulitis okay for diet duplex ordered trend labs will follow with recs thank you No evidence of deep venous thrombosis involving the visualized veins of the RIGHT lower extremity. refused eval of left COVID ++ cxr noted cont current supportive care improving labs stable improving slowly wean pressors as tolerated Patient is acutely worsened intubated on vent support 2 pressors now worsening labs worsening Prognosis is guarded we will continue with maximal support efforts (2) COVID-19 Assessment & Plan: see above Theron Sotomayor March 23, 2020 18:26
[2020-03-23] MEDS: Dyna-Hex 2% Top Sol 2oz TOPIC SCH (19:47)
[2020-03-23] MEDS: Norepinephrine Bitartrate 16 MG in D5W 500ml 484 ML IV SCH (20:52)
[2020-03-23] MEDS: Enoxaparin 100mg Inj SUBQ SCH (21:09)
--- NOTE | 2020-03-23 23:38 | Cardiology Progress Note ---
Assessment/Plan Assessment/Plan 1. Acute respiratory failure with hypoxic hypercapnea due to bilateral PNA caused by COVID-19 infection. 2. Septic shock on dopamine gtt and midodrine, keep MAP at 65 mmHg. Normal LV function with LVEF at 60%. 3. Hyponatremia, resolved. 4. Bilateral lower extremity cellulitis with Pseudomonas aeruginosa in culture. 5. Pancytopenia, most likely due to hepatitis C virus infection/liver cirrhosis. Subjective Subjective Sinus rhythm at rate of 99. On dopamine gtt at 10mcg/min Objective Last 24 Hour Vital Signs Date Time Temp Pulse Resp B/P (MAP) Pulse Ox O2 Delivery O2 Flow Rate FiO2 03/23/20 23:21 99 33 60 03/23/20 20:52 136/80 03/23/20 19:47 28 128/63 60 03/23/20 19:43 70 26 60 03/23/20 19:00 79 26 124/66 (85) 99 03/23/20 18:00 77 26 124/76 (92) 95 03/23/20 18:00 24 Mechanical Ventilator 03/23/20 18:00 24 124/71 Mechanical Ventilator 03/23/20 18:00 124/71 03/23/20 17:35 82 25 142/70 (94) 97 03/23/20 17:09 60 03/23/20 17:00 26 Mechanical Ventilator 03/23/20 17:00 26 125/68 Mechanical Ventilator 03/23/20 17:00 125/68 03/23/20 17:00 80 25 125/68 (87) 94 03/23/20 16:54 77 26 40 03/23/20 16:30 76 26 131/66 (87) 96 03/23/20 16:03 75 03/23/20 16:00 60 03/23/20 16:00 25 Mechanical Ventilator 03/23/20 16:00 25 127/63 Mechanical Ventilator 03/23/20 16:00 127/63 03/23/20 16:00 Mechanical Ventilator Mechanical Ventilator 03/23/20 16:00 97.7 76 29 127/63 (84) 97 03/23/20 15:30 76 26 120/61 (80) 97 03/23/20 15:30 74/32 03/23/20 15:04 85 26 50 03/23/20 15:00 26 Mechanical Ventilator 03/23/20 15:00 24 124/72 Mechanical Ventilator 03/23/20 15:00 124/72 03/23/20 15:00 96 26 124/72 (89) 97 03/23/20 14:53 26 Mechanical Ventilator 03/23/20 14:51 27 123/79 Mechanical Ventilator 03/23/20 14:30 106 18 107/73 (84) 97 03/23/20 14:00 98 26 126/75 (92) 96 03/23/20 14:00 25 Mechanical Ventilator 03/23/20 14:00 26 114/52 Mechanical Ventilator 03/23/20 14:00 114/52 03/23/20 13:30 90 26 120/57 (78) 100 03/23/20 13:29 60 03/23/20 13:24 107 36 60 03/23/20 13:00 25 Mechanical Ventilator 03/23/20 13:00 25 120/57 Mechanical Ventilator 03/23/20 13:00 120/57 03/23/20 13:00 90 26 120/57 (78) 100 03/23/20 12:30 100 119/65 (83) 99 03/23/20 12:00 Mechanical Ventilator Mechanical Ventilator 03/23/20 12:00 89 108/61 (77) 99 03/23/20 12:00 26 Mechanical Ventilator 03/23/20 12:00 28 117/52 Mechanical Ventilator 03/23/20 12:00 117/52 03/23/20 12:00 96 03/23/20 12:00 70 03/23/20 12:00 98.2 03/23/20 11:41 118/81 03/23/20 11:40 109/51 03/23/20 11:30 103 109/51 (70) 99 03/23/20 11:05 95 32 70 03/23/20 11:00 26 Mechanical Ventilator 03/23/20 11:00 26 109/59 Mechanical Ventilator 03/23/20 11:00 109/59 03/23/20 11:00 104 109/59 (76) 99 03/23/20 10:00 80 03/23/20 10:00 96 143/73 (96) 100 03/23/20 10:00 25 Mechanical Ventilator 03/23/20 10:00 26 143/73 Mechanical Ventilator 03/23/20 10:00 143/73 03/23/20 09:56 90 27 80 03/23/20 09:30 78 139/64 (89) 99 03/23/20 09:30 139/64 03/23/20 09:00 76 161/80 (107) 99 03/23/20 09:00 26 Mechanical Ventilator 03/23/20 09:00 26 75/31 Mechanical Ventilator 03/23/20 09:00 75/31 03/23/20 08:45 82/42 03/23/20 08:30 79 75/31 (46) 100 03/23/20 08:28 26 125/85 Mechanical Ventilator 90 03/23/20 08:27 26 98/41 Mechanical Ventilator 03/23/20 08:15 26 134/85 Mechanical Ventilator 03/23/20 08:00 98.9 106 134/85 (101) 99 03/23/20 08:00 Mechanical Ventilator Mechanical Ventilator 03/23/20 08:00 96 03/23/20 08:00 26 Mechanical Ventilator 03/23/20 08:00 26 132/62 Mechanical Ventilator 03/23/20 08:00 90 03/23/20 07:30 104 134/64 (87) 81 03/23/20 07:24 90 03/23/20 07:17 108 37 80 03/23/20 07:00 108 121/64 (83) 93 03/23/20 07:00 26 Mechanical Ventilator 03/23/20 07:00 26 121/64 Mechanical Ventilator 03/23/20 06:00 100.0 105 132/58 (82) 94 03/23/20 06:00 26 Mechanical Ventilator 70 03/23/20 06:00 26 121/64 Mechanical Ventilator 70 03/23/20 06:00 121/64 03/23/20 05:30 114 24 123/63 (83) 94 03/23/20 05:00 115 24 115/54 (74) 95 03/23/20 05:00 26 Mechanical Ventilator 70 03/23/20 05:00 25 109/54 Mechanical Ventilator 70 03/23/20 05:00 109/54 03/23/20 04:30 114 26 123/60 (81) 94 03/23/20 04:00 Mechanical Ventilator Mechanical Ventilator 03/23/20 04:00 24 Mechanical Ventilator 70 03/23/20 04:00 23 96/63 Mechanical Ventilator 70 03/23/20 04:00 96/63 03/23/20 04:00 99.0 111 19 102/62 (75) 96 03/23/20 04:00 70 03/23/20 04:00 107 03/23/20 03:30 112 31 97/75 (82) 96 03/23/20 03:22 117 31 80 03/23/20 03:13 28 Mechanical Ventilator 03/23/20 03:13 121/64 03/23/20 03:00 118 22 147/76 (99) 98 03/23/20 03:00 24 Mechanical Ventilator 70 03/23/20 03:00 24 134/66 Mechanical Ventilator 70 03/23/20 03:00 134/66 03/23/20 02:30 115 22 132/70 (90) 96 03/23/20 02:00 115 18 111/68 (82) 97 03/23/20 02:00 28 Mechanical Ventilator 70 03/23/20 02:00 28 108/77 Mechanical Ventilator 70 03/23/20 02:00 108/77 03/23/20 01:30 117 21 117/65 (82) 97 03/23/20 01:15 117 21 147/82 (103) 97 03/23/20 01:00 108 22 170/75 (106) 96 03/23/20 01:00 24 Mechanical Ventilator 70 03/23/20 01:00 28 147/82 Mechanical Ventilator 70 03/23/20 01:00 147/82 03/23/20 00:45 115 16 167/84 (111) 98 03/23/20 00:30 114 21 177/85 (115) 69 03/23/20 00:28 113 19 168/90 (116) 03/23/20 00:15 112 21 161/81 (107) 95 03/23/20 00:00 98.8 105 26 159/85 (109) 95 03/23/20 00:00 Mechanical Ventilator Mechanical Ventilator 03/23/20 00:00 28 Mechanical Ventilator 70 03/23/20 00:00 28 161/81 Mechanical Ventilator 70 03/23/20 00:00 161/81 03/23/20 00:00 112 03/23/20 00:00 70 Intake and Output 03/22/20 03/23/20 19:00 07:00 Intake Total 1112.346 ml 1024.842 ml Output Total 1480 ml 1820 ml Balance -367.654 ml -795.158 ml Free Water 90 ml 60 ml IV Total 482.346 ml 469.842 ml Tube Feeding 540 ml 495 ml Output Urine Total 1470 ml 1760 ml Stool Total 10 ml 60 ml Laboratory Tests Test 03/23/20 03:34 03/23/20 09:31 White Blood Count 11.8 K/UL (4.8-10.8) H Red Blood Count 2.73 M/UL (4.20-5.40) L Hemoglobin 9.1 G/DL (12.0-16.0) L Hematocrit 27.7 % (37.0-47.0) L Mean Corpuscular Volume 102 FL (80-99) H Mean Corpuscular Hemoglobin 33.5 PG (27.0-31.0) H Mean Corpuscular Hemoglobin Concent 33.0 G/DL (32.0-36.0) Red Cell Distribution Width 17.1 % (11.6-14.8) H Platelet Count 178 K/UL (150-450) Mean Platelet Volume 6.4 FL (6.5-10.1) L Neutrophils (%) (Auto) % (45.0-75.0) Lymphocytes (%) (Auto) % (20.0-45.0) Monocytes (%) (Auto) % (1.0-10.0) Eosinophils (%) (Auto) % (0.0-3.0) Basophils (%) (Auto) % (0.0-2.0) Sodium Level 143 MMOL/L (136-145) Potassium Level 3.6 MMOL/L (3.5-5.1) Chloride Level 103 MMOL/L (98-107) Carbon Dioxide Level 36 MMOL/L (21-32) H Anion Gap 5 mmol/L (5-15) Blood Urea Nitrogen 25 mg/dL (7-18) H Creatinine 0.8 MG/DL (0.55-1.30) Estimat Glomerular Filtration Rate > 60 mL/min (>60) Glucose Level 205 MG/DL (74-106) H Calcium Level 8.8 MG/DL (8.5-10.1) Total Bilirubin 1.5 MG/DL (0.2-1.0) H Direct Bilirubin 0.8 MG/DL (0.0-0.3) H Aspartate Amino Transf (AST/SGOT) 127 U/L (15-37) H Alanine Aminotransferase (ALT/SGPT) 60 U/L (12-78) Alkaline Phosphatase 255 U/L (46-116) H Ammonia 105 umol/L (11-32) H Total Protein 8.1 G/DL (6.4-8.2) Albumin 2.4 G/DL (3.4-5.0) L Globulin 5.7 g/dL Albumin/Globulin Ratio 0.4 (1.0-2.7) L Triglycerides Level 161 MG/DL (30-150) H Arterial Blood pH 7.358 (7.350-7.450) Arterial Blood Partial Pressure CO2 66.7 mmHg (35.0-45.0) *H Arterial Blood Partial Pressure O2 106.3 mmHg (75.0-100.0) H Arterial Blood HCO3 36.7 mmol/L (22.0-26.0) H Arterial Blood Oxygen Saturation 97.4 % (95-100) Arterial Blood Base Excess 9.3 (-2-2) *H Joaquin Test Positive Microbiology Date/Time Source Procedure Growth Status 03/22/20 00:15 Sputum Gram Stain - Final Resulted 03/22/20 00:15 Sputum Sputum Culture Pending Resulted Objective HEENT: Atraumatic and normocephalic. Anicteric. Intubated. NECK: JVP cannot be assessed. No carotid bruit. + ETT. CARDIOVASCULAR: Normal S1, S2. Regular rate and rhythm. No murmurs, gallops, or rubs. PMI is at fourth intercostal space at left midclavicular line. LUNGS: Bibasilar crackles. ABDOMEN: Soft, nontender, and nondistended. No hepatosplenomegaly. Positive bowel sounds. EXTREMITIES: A 2+ edema bilaterally associated with erythema with blistering and crust formation of both feet. Berto Gonzalez MD March 23, 2020 23:38
[2020-03-24] VITALS (71 sets, daily range): BP systolic 54–179; BP diastolic 24–142
[2020-03-24] MEDS: NovoLOG Insulin Flexpen SUBQ SCH ×4 (00:23→17:41)
--- NOTE | 2020-03-24 00:44 | Pulmonolgy Critical Care Note ---
Critical Care - Asmt/Plan Assessment/Plan: Pulmonary CCM Progress Note HPI Patient is a 59 year old woman with significant obesity, admitted with bilateral lower extremity cellulitis, had complained of increased swelling and redness to both of her feet and legs Had elevated BNP on admission, persistent edema since admission, worsening hypoxia, LE DVT (right) negative for DVT. Patient had previous hospitalizations for cellulitis, PMH Hypothyroidism, Obesity, Cirrhosis, Anemia, Anxiety, Cellulitis COVID 19 positive, Pneumonia VQ no significant perfusion abnormality, prev LE dupplex negative High D Dimer level, on Lovenox PPX Being diuresed, persistent infiltrates on CXR, on ACVC, no tolerating Proning Some improvement in PaO2/FIO2, VC settings adjusted,, P 16, FIO2 60% Hyponatremia improving, renal following Hypothyroidism Awaiting Remdasovir, [facility] - Remdesavir requested for when available, [facility] - not available as yet Received IL6 inhibitor inititial dose (4mg/Kg - all that was available), subsequent dose pending, d/w Pharmacy, on steroids - being weaned On therapeutic dose Lovenox - incr D dimer Seen earlier Seen on 03/23/2020 Allergies: No Known Allergies Past Medical History: Obesity, Cirrhosis, Anemia, Anxiety, Cellulitis, Hypothyroidism All Other Systems: negative except mentioned in HPI Physical Exam Vital Signs Noted General Appearance: Obese, Sedated,intubated Head: normocephalic, atraumatic Eyes: bilateral eye PERRL, bilateral eye EOMI ENT: EOM grossly intact, moist MM, no LN Respiratory: Bilateral crackles, bilateral rhonchi Cardiovascular: regular rate, rhythm, HS1, HS2 RRR Gastrointestinal: Obese, soft non tender, ND Musculoskeletal: Mild to moderate edema and erythema bilateral lower extremity , patient also has crusting on both feet, Neurologic: sedated, no focalsigns Impression: Covid Pneumonia, s/p IL6 inhibitor, sp Hydroxychloroquine, Ivermectin Significant hypoxia, PaO2 >60 100%, elevated PCO2 Bilateral Lower Extremity Cellulitis Elevated NPA, severe bilateral edema Cirrhosis Splenomegaly Anemia Anxiety Hyponatremia Hypothyroidism Plan IV Antibiotics per ID On trial of steroids - currently 40 mg bid, on IL6 inhibitor Diurese as tolerated, note persistently elevated BNP Surgery following for wounds Hematology following for anemia, observing for Neutropenia/thrombocytopenia Diurese PRN Renal following for hyponatremia Endocrine following for Hypothyroidism, on ISS Monitor labs Bronchodilators PPX - Lovenox - theapeutic dose Echocardiogram once Covid negative AC VC Proning PRN 3% saline PRN per renal PRN Supplement electrolytes PRN Albuterol PRN MDI [employer] Medications Previously Patients daughter Tri - discussed grave prognosis, suggested DNAR - will consider [facility] - Remdesavir ordered, awaiting supply, awaiting next dose on IL6 inhibitor once supply available Labs Noted Chest X-Ray: Cardiomegaly, left lower lobe atelectasis versus effusion, worsening infiltrates/congestion Subjective ROS Limited/Unobtainable: No Constitutional: Reports: no symptoms Gastrointestinal/Abdominal: Reports: no symptoms Musculoskeletal: Reports: other - SOB Allergies: Coded Allergies: No Known Allergies (Unverified , 02/29/20) ICU time 50 minutes Critical Care - Objective Last 24 Hour Vital Signs Date Time Temp Pulse Resp B/P (MAP) Pulse Ox O2 Delivery O2 Flow Rate FiO2 03/23/20 23:51 100/50 03/23/20 23:21 99 33 60 03/23/20 23:00 57 36 163/82 (109) 100 03/23/20 22:30 63 26 71/32 (45) 98 03/23/20 22:00 62 34 137/79 (98) 99 03/23/20 21:30 63 27 125/62 (83) 99 03/23/20 21:00 82 22 141/70 (93) 98 03/23/20 20:52 136/80 03/23/20 20:30 84 23 130/84 (99) 99 03/23/20 20:15 89 24 131/64 (86) 99 03/23/20 20:00 Mechanical Ventilator Mechanical Ventilator 03/23/20 20:00 98.0 87 21 146/68 (94) 99 03/23/20 19:47 28 128/63 60 03/23/20 19:43 70 26 60 03/23/20 19:30 73 24 128/63 (84) 97 03/23/20 19:00 79 26 124/66 (85) 99 03/23/20 18:00 77 26 124/76 (92) 95 03/23/20 18:00 24 Mechanical Ventilator 03/23/20 18:00 24 124/71 Mechanical Ventilator 03/23/20 18:00 124/71 03/23/20 17:35 82 25 142/70 (94) 97 03/23/20 17:09 60 03/23/20 17:00 26 Mechanical Ventilator 03/23/20 17:00 26 125/68 Mechanical Ventilator 03/23/20 17:00 125/68 03/23/20 17:00 80 25 125/68 (87) 94 03/23/20 16:54 77 26 40 03/23/20 16:30 76 26 131/66 (87) 96 03/23/20 16:03 75 03/23/20 16:00 60 03/23/20 16:00 25 Mechanical Ventilator 03/23/20 16:00 25 127/63 Mechanical Ventilator 03/23/20 16:00 127/63 03/23/20 16:00 Mechanical Ventilator Mechanical Ventilator 03/23/20 16:00 97.7 76 29 127/63 (84) 97 03/23/20 15:30 76 26 120/61 (80) 97 03/23/20 15:30 74/32 03/23/20 15:04 85 26 50 03/23/20 15:00 26 Mechanical Ventilator 03/23/20 15:00 24 124/72 Mechanical Ventilator 03/23/20 15:00 124/72 03/23/20 15:00 96 26 124/72 (89) 97 03/23/20 14:53 26 Mechanical Ventilator 03/23/20 14:51 27 123/79 Mechanical Ventilator 03/23/20 14:30 106 18 107/73 (84) 97 03/23/20 14:00 98 26 126/75 (92) 96 03/23/20 14:00 25 Mechanical Ventilator 03/23/20 14:00 26 114/52 Mechanical Ventilator 03/23/20 14:00 114/52 03/23/20 13:30 90 26 120/57 (78) 100 03/23/20 13:29 60 03/23/20 13:24 107 36 60 03/23/20 13:00 25 Mechanical Ventilator 03/23/20 13:00 25 120/57 Mechanical Ventilator 03/23/20 13:00 120/57 03/23/20 13:00 90 26 120/57 (78) 100 03/23/20 12:30 100 119/65 (83) 99 03/23/20 12:00 Mechanical Ventilator Mechanical Ventilator 03/23/20 12:00 89 108/61 (77) 99 03/23/20 12:00 26 Mechanical Ventilator 03/23/20 12:00 28 117/52 Mechanical Ventilator 03/23/20 12:00 117/52 03/23/20 12:00 96 03/23/20 12:00 70 03/23/20 12:00 98.2 03/23/20 11:41 118/81 03/23/20 11:40 109/51 03/23/20 11:30 103 109/51 (70) 99 03/23/20 11:05 95 32 70 03/23/20 11:00 26 Mechanical Ventilator 03/23/20 11:00 26 109/59 Mechanical Ventilator 03/23/20 11:00 109/59 03/23/20 11:00 104 109/59 (76) 99 03/23/20 10:00 80 03/23/20 10:00 96 143/73 (96) 100 03/23/20 10:00 25 Mechanical Ventilator 03/23/20 10:00 26 143/73 Mechanical Ventilator 03/23/20 10:00 143/73 03/23/20 09:56 90 27 80 03/23/20 09:30 78 139/64 (89) 99 03/23/20 09:30 139/64 03/23/20 09:00 76 161/80 (107) 99 03/23/20 09:00 26 Mechanical Ventilator 03/23/20 09:00 26 75/31 Mechanical Ventilator 03/23/20 09:00 75/31 03/23/20 08:45 82/42 03/23/20 08:30 79 75/31 (46) 100 03/23/20 08:28 26 125/85 Mechanical Ventilator 90 03/23/20 08:27 26 98/41 Mechanical Ventilator 03/23/20 08:15 26 134/85 Mechanical Ventilator 03/23/20 08:00 98.9 106 134/85 (101) 99 03/23/20 08:00 Mechanical Ventilator Mechanical Ventilator 03/23/20 08:00 96 03/23/20 08:00 26 Mechanical Ventilator 03/23/20 08:00 26 132/62 Mechanical Ventilator 03/23/20 08:00 90 03/23/20 07:30 104 134/64 (87) 81 03/23/20 07:24 90 03/23/20 07:17 108 37 80 03/23/20 07:00 108 121/64 (83) 93 03/23/20 07:00 26 Mechanical Ventilator 03/23/20 07:00 26 121/64 Mechanical Ventilator 03/23/20 06:00 100.0 105 132/58 (82) 94 03/23/20 06:00 26 Mechanical Ventilator 70 03/23/20 06:00 26 121/64 Mechanical Ventilator 70 03/23/20 06:00 121/64 03/23/20 05:30 114 24 123/63 (83) 94 03/23/20 05:00 115 24 115/54 (74) 95 03/23/20 05:00 26 Mechanical Ventilator 70 03/23/20 05:00 25 109/54 Mechanical Ventilator 70 03/23/20 05:00 109/54 03/23/20 04:30 114 26 123/60 (81) 94 03/23/20 04:00 Mechanical Ventilator Mechanical Ventilator 03/23/20 04:00 24 Mechanical Ventilator 70 03/23/20 04:00 23 96/63 Mechanical Ventilator 70 03/23/20 04:00 96/63 03/23/20 04:00 99.0 111 19 102/62 (75) 96 03/23/20 04:00 70 03/23/20 04:00 107 03/23/20 03:30 112 31 97/75 (82) 96 03/23/20 03:22 117 31 80 03/23/20 03:13 28 Mechanical Ventilator 03/23/20 03:13 121/64 03/23/20 03:00 118 22 147/76 (99) 98 03/23/20 03:00 24 Mechanical Ventilator 70 03/23/20 03:00 24 134/66 Mechanical Ventilator 70 03/23/20 03:00 134/66 03/23/20 02:30 115 22 132/70 (90) 96 03/23/20 02:00 115 18 111/68 (82) 97 03/23/20 02:00 28 Mechanical Ventilator 70 03/23/20 02:00 28 108/77 Mechanical Ventilator 70 03/23/20 02:00 108/77 03/23/20 01:30 117 21 117/65 (82) 97 03/23/20 01:15 117 21 147/82 (103) 97 03/23/20 01:00 108 22 170/75 (106) 96 03/23/20 01:00 24 Mechanical Ventilator 70 03/23/20 01:00 28 147/82 Mechanical Ventilator 70 03/23/20 01:00 147/82 03/23/20 00:45 115 16 167/84 (111) 98 Micro: Microbiology Date/Time Source Procedure Growth Status 03/22/20 00:15 Sputum Gram Stain - Final Resulted 03/22/20 00:15 Sputum Sputum Culture Pending Resulted Accucheck: 237 Critical Care - Subjective ROS Limited/Unobtainable: No Condition: critical IV Access: PICC EKG Rhythm: Sinus Rhythm FI02: 60 Vent Support Breath Rate: 26 Vent Support Mode: AC Vent Tidal Volume: 400 Sputum Amount: Scant PEEP: 16.0 PIP: 28 Tube Feeding Amount: 45 I&O: Intake and Output 03/23/20 03/24/20 19:00 07:00 Intake Total 1107.2885 ml 210 ml Output Total 1885 ml 540 ml Balance -777.7115 ml -330 ml Free Water 60 ml 30 ml IV Total 552.2885 ml Tube Feeding 495 ml 180 ml Output Urine Total 1485 ml 540 ml Stool Total 400 ml ET-Tube: 7.5 ET Position: 21 Doron Carrillo MD March 24, 2020 00:44
[2020-03-24] MEDS: fentaNYL Citrate 2,500 MCG in NS 200 ML IV SCH ×2 (02:21→12:29)
[2020-03-24] MEDS: propofoL 1,000mg/100ml 100 ML IV SCH ×3 (02:31→17:38)
[2020-03-24 05:38] LABS: HEMATOCRIT 30.4 % (37.0-47.0); HEMOGLOBIN 10.2 G/DL (12.0-16.0); MEAN CORPUSCULAR VOLUME 101 FL (80-99); PLATELET COUNT 192 K/UL (150-450); RED CELL DISTRIBUTION WIDTH 16.7 % (11.6-14.8); WHITE BLOOD COUNT 13.6 K/UL (4.8-10.8)
[2020-03-24] MEDS: Metoclopramide 10mg/2ml Inj IVP SCH ×3 (05:49→17:29)
[2020-03-24] MEDS: DOPamine 400mg/250ml 250 ML IV SCH ×3 (06:02→21:57)
[2020-03-24 06:08] LABS: ALANINE AMINOTRANSFERASE 129 U/L (12-78); ALBUMIN 2.7 G/DL (3.4-5.0); ALBUMIN/GLOBULIN RATIO 0.4 (1.0-2.7); ALKALINE PHOSPHATASE 371 U/L (46-116); ANION GAP 1 mmol/L (5-15); ASPARTATE AMINO TRANSFERASE 206 U/L (15-37); BILIRUBIN,TOTAL 2.1 MG/DL (0.2-1.0); BLOOD UREA NITROGEN 22 mg/dL (7-18); CALCIUM 8.9 MG/DL (8.5-10.1); CHLORIDE 100 MMOL/L (98-107); CREATININE 0.7 MG/DL (0.55-1.30); POTASSIUM 3.4 MMOL/L (3.5-5.1); SODIUM 143 MMOL/L (136-145); TRIGLYCERIDES 203 MG/DL (30-150)
[2020-03-24 06:09] LABS: CARBON DIOXIDE 40 MMOL/L (21-32)
[2020-03-24 06:10] LABS: BILIRUBIN,DIRECT 1.2 MG/DL (0.0-0.3)
--- NOTE | 2020-03-24 06:56 | General Progress Note ---
Assessment/Plan Problem List: (1) Hypothyroid (2) COVID-19 (3) Respiratory failure with hypoxia (4) Cellulitis (5) Hyperglycemia Status: progressing, unchanged Assessment/Plan: increase Levemir 8 to 14 units bid continue Novolog sliding scale every 6 hours continue Levothyroxine 50 mcg IV daily Subjective ROS Limited/Unobtainable: Yes Allergies: Coded Allergies: No Known Allergies (Unverified , 02/29/20) Subjective events noted - interval notes reviewed intubated in ICU - on pressors glucose values are elevated Item Value Date Time Bedside Blood Glucose 238 mg/dl H 03/24/20 0600 Bedside Blood Glucose 237 mg/dl H 03/24/20 0023 Bedside Blood Glucose 287 mg/dl H 03/23/20 1746 Bedside Blood Glucose 247 mg/dl H 03/23/20 1238 Bedside Blood Glucose 202 mg/dl H 03/23/20 0859 Bedside Blood Glucose 198 mg/dl H 03/23/20 0600 Bedside Blood Glucose 231 mg/dl H 03/23/20 0000 Objective Last 24 Hour Vital Signs Date Time Temp Pulse Resp B/P (MAP) Pulse Ox O2 Delivery O2 Flow Rate FiO2 03/24/20 06:30 111 19 159/84 (109) 98 03/24/20 06:02 110/60 03/24/20 06:00 113 21 140/78 (98) 97 03/24/20 05:45 109 20 147/95 (112) 98 03/24/20 05:30 102 25 158/81 (106) 96 03/24/20 05:00 110 17 159/81 (107) 98 03/24/20 05:00 20 Mechanical Ventilator 60 03/24/20 05:00 26 155/88 Mechanical Ventilator 60 03/24/20 05:00 163/88 03/24/20 04:30 109 15 164/90 (114) 98 03/24/20 04:00 90 03/24/20 04:00 Mechanical Ventilator Mechanical Ventilator 03/24/20 04:00 60 03/24/20 04:00 98.2 106 23 165/89 (114) 97 03/24/20 04:00 28 Mechanical Ventilator 60 03/24/20 04:00 20 163/86 Mechanical Ventilator 60 03/24/20 04:00 163/86 03/24/20 03:36 112 36 60 03/24/20 03:30 104 18 157/95 (115) 95 03/24/20 03:00 106 25 174/107 (129) 95 03/24/20 03:00 26 Mechanical Ventilator 60 03/24/20 03:00 26 160/80 Mechanical Ventilator 60 03/24/20 03:00 158/60 03/24/20 02:31 28 167/102 60 03/24/20 02:30 103 19 156/109 (125) 03/24/20 02:21 28 Mechanical Ventilator 60 03/24/20 02:15 99 20 167/102 (123) 03/24/20 02:00 108 20 170/87 (114) 81 03/24/20 02:00 26 Mechanical Ventilator 60 03/24/20 02:00 26 160/80 Mechanical Ventilator 60 03/24/20 02:00 160/80 03/24/20 01:45 94 24 172/90 (117) 94 03/24/20 01:30 96 24 170/89 (116) 93 03/24/20 01:15 102 22 164/119 (134) 95 03/24/20 01:00 26 Mechanical Ventilator 60 03/24/20 01:00 26 160/80 Mechanical Ventilator 60 03/24/20 01:00 160/80 03/24/20 01:00 98 23 158/142 (147) 95 03/24/20 00:30 91 19 165/93 (117) 93 03/24/20 00:00 Mechanical Ventilator Mechanical Ventilator 03/24/20 00:00 60 03/24/20 00:00 60 03/24/20 00:00 99.0 96 22 110/58 (75) 95 03/24/20 00:00 28 Mechanical Ventilator 60 03/24/20 00:00 28 159/81 Mechanical Ventilator 60 03/24/20 00:00 159/81 03/24/20 00:00 82 03/23/20 23:51 100/50 03/23/20 23:30 98 15 140/111 (121) 92 03/23/20 23:21 99 33 60 03/23/20 23:00 57 36 163/82 (109) 100 03/23/20 23:00 28 Mechanical Ventilator 60 03/23/20 23:00 26 120/62 Mechanical Ventilator 60 03/23/20 23:00 138/60 03/23/20 22:30 63 26 71/32 (45) 98 03/23/20 22:00 26 Mechanical Ventilator 60 03/23/20 22:00 137/79 03/23/20 22:00 62 34 137/79 (98) 99 03/23/20 21:30 63 27 125/62 (83) 99 03/23/20 21:00 82 22 141/70 (93) 98 03/23/20 21:00 26 Mechanical Ventilator 60 03/23/20 21:00 26 141/70 Mechanical Ventilator 60 03/23/20 21:00 141/70 03/23/20 20:52 136/80 03/23/20 20:30 84 23 130/84 (99) 99 03/23/20 20:15 89 24 131/64 (86) 99 03/23/20 20:00 Mechanical Ventilator Mechanical Ventilator 03/23/20 20:00 26 Mechanical Ventilator 60 03/23/20 20:00 26 Mechanical Ventilator 60 03/23/20 20:00 26 146/68 Mechanical Ventilator 60 03/23/20 20:00 146/68 03/23/20 20:00 98.0 87 21 146/68 (94) 99 03/23/20 20:00 60 03/23/20 19:47 28 128/63 60 03/23/20 19:43 70 26 60 03/23/20 19:30 73 24 128/63 (84) 97 03/23/20 19:00 79 26 124/66 (85) 99 03/23/20 18:00 77 26 124/76 (92) 95 03/23/20 18:00 24 Mechanical Ventilator 03/23/20 18:00 24 124/71 Mechanical Ventilator 03/23/20 18:00 124/71 03/23/20 17:35 82 25 142/70 (94) 97 03/23/20 17:09 60 03/23/20 17:00 26 Mechanical Ventilator 03/23/20 17:00 26 125/68 Mechanical Ventilator 03/23/20 17:00 125/68 03/23/20 17:00 80 25 125/68 (87) 94 03/23/20 16:54 77 26 40 03/23/20 16:30 76 26 131/66 (87) 96 03/23/20 16:03 75 03/23/20 16:00 60 03/23/20 16:00 25 Mechanical Ventilator 03/23/20 16:00 25 127/63 Mechanical Ventilator 03/23/20 16:00 127/63 03/23/20 16:00 Mechanical Ventilator Mechanical Ventilator 03/23/20 16:00 97.7 76 29 127/63 (84) 97 03/23/20 15:30 76 26 120/61 (80) 97 03/23/20 15:30 74/32 03/23/20 15:04 85 26 50 03/23/20 15:00 26 Mechanical Ventilator 03/23/20 15:00 24 124/72 Mechanical Ventilator 03/23/20 15:00 124/72 03/23/20 15:00 96 26 124/72 (89) 97 03/23/20 14:53 26 Mechanical Ventilator 03/23/20 14:51 27 123/79 Mechanical Ventilator 03/23/20 14:30 106 18 107/73 (84) 97 03/23/20 14:00 98 26 126/75 (92) 96 03/23/20 14:00 25 Mechanical Ventilator 03/23/20 14:00 26 114/52 Mechanical Ventilator 03/23/20 14:00 114/52 03/23/20 13:30 90 26 120/57 (78) 100 03/23/20 13:29 60 03/23/20 13:24 107 36 60 03/23/20 13:00 25 Mechanical Ventilator 03/23/20 13:00 25 120/57 Mechanical Ventilator 03/23/20 13:00 120/57 03/23/20 13:00 90 26 120/57 (78) 100 03/23/20 12:30 100 119/65 (83) 99 03/23/20 12:00 Mechanical Ventilator Mechanical Ventilator 03/23/20 12:00 89 108/61 (77) 99 03/23/20 12:00 26 Mechanical Ventilator 03/23/20 12:00 28 117/52 Mechanical Ventilator 03/23/20 12:00 117/52 03/23/20 12:00 96 03/23/20 12:00 70 03/23/20 12:00 98.2 03/23/20 11:41 118/81 03/23/20 11:40 109/51 03/23/20 11:30 103 109/51 (70) 99 03/23/20 11:05 95 32 70 03/23/20 11:00 26 Mechanical Ventilator 03/23/20 11:00 26 109/59 Mechanical Ventilator 03/23/20 11:00 109/59 03/23/20 11:00 104 109/59 (76) 99 03/23/20 10:00 80 03/23/20 10:00 96 143/73 (96) 100 03/23/20 10:00 25 Mechanical Ventilator 03/23/20 10:00 26 143/73 Mechanical Ventilator 03/23/20 10:00 143/73 03/23/20 09:56 90 27 80 03/23/20 09:30 78 139/64 (89) 99 03/23/20 09:30 139/64 03/23/20 09:00 76 161/80 (107) 99 03/23/20 09:00 26 Mechanical Ventilator 03/23/20 09:00 26 75/31 Mechanical Ventilator 03/23/20 09:00 75/31 03/23/20 08:45 82/42 03/23/20 08:30 79 75/31 (46) 100 03/23/20 08:28 26 125/85 Mechanical Ventilator 90 03/23/20 08:27 26 98/41 Mechanical Ventilator 03/23/20 08:15 26 134/85 Mechanical Ventilator 03/23/20 08:00 98.9 106 134/85 (101) 99 03/23/20 08:00 Mechanical Ventilator Mechanical Ventilator 03/23/20 08:00 96 03/23/20 08:00 26 Mechanical Ventilator 03/23/20 08:00 26 132/62 Mechanical Ventilator 03/23/20 08:00 90 03/23/20 07:30 104 134/64 (87) 81 03/23/20 07:24 90 03/23/20 07:17 108 37 80 03/23/20 07:00 108 121/64 (83) 93 03/23/20 07:00 26 Mechanical Ventilator 03/23/20 07:00 26 121/64 Mechanical Ventilator Intake and Output 03/23/20 03/24/20 19:00 07:00 Intake Total 1107.2885 ml 1289.21 ml Output Total 1885 ml 2140 ml Balance -777.7115 ml -850.79 ml Free Water 60 ml 90 ml IV Total 552.2885 ml 704.21 ml Tube Feeding 495 ml 495 ml Output Urine Total 1485 ml 1540 ml Stool Total 400 ml 600 ml Laboratory Tests 03/23/20 09:31: Arterial Blood pH 7.358, Arterial Blood Partial Pressure CO2 66.7*H, Arterial Blood Partial Pressure O2 106.3H, Arterial Blood HCO3 36.7H, Arterial Blood Oxygen Saturation 97.4, Arterial Blood Base Excess 9.3*H, Joaquin Test Positive 03/24/20 05:10: White Blood Count 13.6H, Red Blood Count 3.00L, Hemoglobin 10.2L, Hematocrit 30.4L, Mean Corpuscular Volume 101H, Mean Corpuscular Hemoglobin 34.0H, Mean Corpuscular Hemoglobin Concent 33.6, Red Cell Distribution Width 16.7H, Platelet Count 192, Mean Platelet Volume 6.3L, Neutrophils (%) (Auto) , Lymphocytes (%) (Auto) , Monocytes (%) (Auto) , Eosinophils (%) (Auto) , Basophils (%) (Auto) , Sodium Level 143, Potassium Level 3.4L, Chloride Level 100, Carbon Dioxide Level 40H, Anion Gap 1L, Blood Urea Nitrogen 22H, Creatinine 0.7, Estimat Glomerular Filtration Rate > 60, Glucose Level 249H, Calcium Level 8.9, Total Bilirubin 2.1H, Direct Bilirubin 1.2H, Aspartate Amino Transf (AST/SGOT) 206H, Alanine Aminotransferase (ALT/SGPT) 129H, Alkaline Phosphatase 371H, Ammonia 108H, Total Protein 8.8H, Albumin 2.7L, Globulin 6.1, Albumin/Globulin Ratio 0.4L, Triglycerides Level 203H, Lipase 361 Height (Feet): 5 Height (Inches): 1.00 Weight (Pounds): 237 General Appearance: severe distress, other - intubated EENT: other - ETT Neck: normal alignment Cardiovascular: tachycardia Respiratory/Chest: decreased breath sounds Abdomen: normal bowel sounds Pelvis: normal external exam Objective Current Medications Medications (Trade) Dose Ordered Sig/Dolores Route PRN Reason Start Time Stop Time Status Last Admin Dose Admin Acetaminophen (Tylenol) 650 mg Q4H PRN ORAL Temp >100 03/13/20 14:53 04/12/20 14:52 03/19/20 06:25 Acetaminophen (Tylenol) 650 mg Q4H PRN ORAL Mild Pain (Pain Scale 1-3) 03/13/20 14:53 04/12/20 14:52 03/20/20 04:09 Chlorhexidine Gluconate (Lucretia-Hex 2%) 1 applic DAILY@2000 TOPIC 03/13/20 20:00 06/11/20 19:59 03/23/20 19:47 Dextrose (Dextrose 50%) 25 ml Q30M PRN IV Hypoglycemia 03/22/20 18:15 06/20/20 18:14 Dextrose (Dextrose 50%) 50 ml Q30M PRN IV Hypoglycemia 03/22/20 18:15 06/20/20 18:14 Dopamine HCl/ Dextrose 250 ml @ 0 mls/hr Q24H IV 03/16/20 19:30 06/14/20 19:29 03/24/20 06:02 Enoxaparin Sodium (Lovenox) 100 mg EVERY 12 HOURS SUBQ 03/23/20 21:00 06/21/20 20:59 03/23/20 21:09 Fentanyl Citrate 2500 mcg/Sodium Chloride 250 ml @ 0 mls/hr Q24H IV 03/22/20 19:30 03/29/20 19:29 03/24/20 02:21 Furosemide (Lasix) 20 mg EVERY 12 HOURS IV 03/22/20 21:00 04/21/20 20:59 03/23/20 20:52 Insulin Aspart (NovoLOG) Q6HR SUBQ 03/16/20 12:00 06/14/20 11:59 03/24/20 05:51 Insulin Detemir (Levemir) 8 units BID SUBQ 03/22/20 19:00 06/20/20 18:59 03/23/20 17:45 Lactulose (Cephulac) 30 gm TID ORAL 03/22/20 13:00 04/21/20 17:59 03/23/20 17:44 Levofloxacin (Levaquin) 750 mg DAILY NG 03/20/20 12:00 03/27/20 11:59 03/23/20 08:52 Levothyroxine Sodium (Synthroid) 50 mcg DAILY IV 03/21/20 09:00 04/17/20 11:59 03/23/20 08:59 Methylprednisolone Sodium Succinate (Solu-MEDROL) 40 mg EVERY 12 HOURS IVP 03/22/20 21:00 06/17/20 20:59 03/23/20 20:51 Metoclopramide HCl (Reglan) 10 mg Q6HR IVP 03/21/20 12:00 04/20/20 11:59 03/24/20 05:49 Midodrine (Pro-Amatine) 5 mg THREE TIMES A DAY NG 03/22/20 18:00 06/20/20 17:59 03/23/20 17:44 Mirtazapine (Remeron) 7.5 mg BEDTIME PRN ORAL SLEEP 03/13/20 14:55 06/11/20 14:54 Non-Formulary Medication (Non-Formulary Med) 1 ea DAILY IV 03/18/20 09:00 04/17/20 08:59 UNV Norepinephrine Bitartrate 16 mg/ Dextrose 500 ml @ 0 mls/hr Q24H IV 03/17/20 21:00 04/16/20 13:02 03/21/20 05:03 Potassium Chloride (K-Dur) 20 meq TWICE A DAY NG 03/23/20 09:30 06/21/20 09:29 03/23/20 17:44 Propofol 100 ml @ 0 mls/hr Q24H IV 03/22/20 16:30 03/24/20 16:29 03/24/20 02:31 Rifaximin (Xifaxan) 550 mg EVERY 12 HOURS ORAL 03/18/20 09:00 03/25/20 08:59 03/23/20 20:51 Vasopressin 100 units/Sodium Chloride 100 ml @ 0 mls/hr Q24H PRN IV For hypotension 03/16/20 11:00 04/15/20 10:59 03/19/20 18:03 Johan Christopher MD March 24, 2020 06:56
[2020-03-24] MEDS ORDERED: Sodium Chloride for KCL Premix X 1hr IV SCH ×2 (08:15→12:00)
[2020-03-24] MEDS: Levofloxacin 750mg tab NG SCH (08:44)
[2020-03-24] MEDS: Solu-MEDROL 40mg Inj IVP SCH ×2 (08:45→21:11)
[2020-03-24] MEDS: Lactulose 20gm/30ml UDC ORAL SCH ×3 (08:46→17:29)
[2020-03-24] MEDS: Enoxaparin 100mg Inj SUBQ SCH ×2 (08:47→21:12)
[2020-03-24] MEDS: Levemir Flexpen SUBQ SCH ×2 (09:07→17:40)
--- NOTE | 2020-03-24 11:36 | Nephrology Progress Note ---
Assessment/Plan Problem List: (1) Electrolyte imbalance Assessment: Hyponatremia resolved -hyperkalemia resolved (2) COVID-19 (3) Respiratory failure with hypoxia (4) Cellulitis (5) Hypothyroid Assessment Hyponatremia. Serum sodium started drifting down from March 16. Hyperkalemia. Septic shock. Acute respiratory failure. Respiratory failure and COVID pneumonia. History of cirrhosis/splenomegaly Anemia Bilateral lower extremity cellulitis Plan Potassium supplement as needed Trial of diuretics per lighting adviser Taper steroids's deferred to gluing machine operator electronic Urine sodium is below 20 Serum ammonia is elevated will start lactulose Patient on Solu-Medrol and Solu-Cortef will discontinue Solu-Cortef Will try to gently diurese for severe edema meanwhile administering albumin 25% as needed Monitor electrolytes and renal parameters We will add midodrine 10 mg 3 times a day via NG tube Decrease dosage of IV Synthroid Discussed with DAO Starr Subjective ROS Limited/Unobtainable: Yes Objective Objective Last 24 Hour Vital Signs Date Time Temp Pulse Resp B/P (MAP) Pulse Ox O2 Delivery O2 Flow Rate FiO2 03/24/20 11:00 26 Mechanical Ventilator 50 03/24/20 11:00 26 132/80 Mechanical Ventilator 50 03/24/20 11:00 132/80 03/24/20 10:45 26 Mechanical Ventilator 50 03/24/20 10:00 26 Mechanical Ventilator 50 03/24/20 10:00 26 138/83 Mechanical Ventilator 50 03/24/20 10:00 138/84 03/24/20 09:53 22 136/83 Mechanical Ventilator 93.0 50 03/24/20 09:45 155/70 03/24/20 09:45 101.5 111 22 136/83 (100) 99 03/24/20 09:30 111 19 158/78 (104) 98 03/24/20 09:30 136/83 03/24/20 09:15 114 22 152/85 (107) 99 03/24/20 09:00 116 23 151/82 (105) 98 03/24/20 09:00 26 Mechanical Ventilator 50 03/24/20 09:00 26 151/82 Mechanical Ventilator 50 03/24/20 09:00 151/82 03/24/20 08:45 114 18 148/80 (102) 98 03/24/20 08:30 113 22 147/74 (98) 97 03/24/20 08:30 116 32 50 03/24/20 08:15 113 17 160/82 (108) 97 03/24/20 08:00 102.0 116 18 147/91 (109) 98 03/24/20 08:00 50 03/24/20 08:00 50 03/24/20 08:00 26 Non-Rebreather 50 03/24/20 08:00 26 147/91 Mechanical Ventilator 50 03/24/20 08:00 147/91 03/24/20 08:00 Mechanical Ventilator Mechanical Ventilator 03/24/20 07:00 120 19 132/63 (86) 98 03/24/20 07:00 26 Mechanical Ventilator 60 03/24/20 07:00 26 166/97 Mechanical Ventilator 60 03/24/20 07:00 166/97 03/24/20 06:49 116 28 60 03/24/20 06:30 111 19 159/84 (109) 98 03/24/20 06:02 21 Mechanical Ventilator 60 03/24/20 06:02 21 150/69 Mechanical Ventilator 03/24/20 06:02 110/60 03/24/20 06:00 113 21 140/78 (98) 97 03/24/20 05:45 109 20 147/95 (112) 98 03/24/20 05:30 102 25 158/81 (106) 96 03/24/20 05:00 110 17 159/81 (107) 98 03/24/20 05:00 20 Mechanical Ventilator 60 03/24/20 05:00 26 155/88 Mechanical Ventilator 60 03/24/20 05:00 163/88 03/24/20 04:30 109 15 164/90 (114) 98 03/24/20 04:00 90 03/24/20 04:00 Mechanical Ventilator Mechanical Ventilator 03/24/20 04:00 60 03/24/20 04:00 98.2 106 23 165/89 (114) 97 03/24/20 04:00 28 Mechanical Ventilator 60 03/24/20 04:00 20 163/86 Mechanical Ventilator 60 03/24/20 04:00 163/86 03/24/20 03:36 112 36 60 03/24/20 03:30 104 18 157/95 (115) 95 03/24/20 03:00 106 25 174/107 (129) 95 03/24/20 03:00 26 Mechanical Ventilator 60 03/24/20 03:00 26 160/80 Mechanical Ventilator 60 03/24/20 03:00 158/60 03/24/20 02:31 28 167/102 60 03/24/20 02:30 103 19 156/109 (125) 03/24/20 02:21 28 Mechanical Ventilator 60 03/24/20 02:15 99 20 167/102 (123) 03/24/20 02:00 108 20 170/87 (114) 81 03/24/20 02:00 26 Mechanical Ventilator 60 03/24/20 02:00 26 160/80 Mechanical Ventilator 60 03/24/20 02:00 160/80 03/24/20 01:45 94 24 172/90 (117) 94 03/24/20 01:30 96 24 170/89 (116) 93 03/24/20 01:15 102 22 164/119 (134) 95 03/24/20 01:00 26 Mechanical Ventilator 60 03/24/20 01:00 26 160/80 Mechanical Ventilator 60 03/24/20 01:00 160/80 03/24/20 01:00 98 23 158/142 (147) 95 03/24/20 00:30 91 19 165/93 (117) 93 03/24/20 00:00 Mechanical Ventilator Mechanical Ventilator 03/24/20 00:00 60 03/24/20 00:00 60 03/24/20 00:00 99.0 96 22 110/58 (75) 95 03/24/20 00:00 28 Mechanical Ventilator 60 03/24/20 00:00 28 159/81 Mechanical Ventilator 60 03/24/20 00:00 159/81 03/24/20 00:00 82 03/23/20 23:51 100/50 03/23/20 23:30 98 15 140/111 (121) 92 03/23/20 23:21 99 33 60 03/23/20 23:00 57 36 163/82 (109) 100 03/23/20 23:00 28 Mechanical Ventilator 60 03/23/20 23:00 26 120/62 Mechanical Ventilator 60 03/23/20 23:00 138/60 03/23/20 22:30 63 26 71/32 (45) 98 03/23/20 22:00 26 Mechanical Ventilator 60 03/23/20 22:00 137/79 03/23/20 22:00 62 34 137/79 (98) 99 03/23/20 21:30 63 27 125/62 (83) 99 03/23/20 21:00 82 22 141/70 (93) 98 03/23/20 21:00 26 Mechanical Ventilator 60 03/23/20 21:00 26 141/70 Mechanical Ventilator 60 03/23/20 21:00 141/70 03/23/20 20:52 136/80 03/23/20 20:30 84 23 130/84 (99) 99 03/23/20 20:15 89 24 131/64 (86) 99 03/23/20 20:00 Mechanical Ventilator Mechanical Ventilator 03/23/20 20:00 26 Mechanical Ventilator 60 03/23/20 20:00 26 Mechanical Ventilator 60 03/23/20 20:00 26 146/68 Mechanical Ventilator 60 03/23/20 20:00 146/68 03/23/20 20:00 98.0 87 21 146/68 (94) 99 03/23/20 20:00 60 03/23/20 19:47 28 128/63 60 03/23/20 19:43 70 26 60 03/23/20 19:30 73 24 128/63 (84) 97 03/23/20 19:00 79 26 124/66 (85) 99 03/23/20 18:00 77 26 124/76 (92) 95 03/23/20 18:00 24 Mechanical Ventilator 03/23/20 18:00 24 124/71 Mechanical Ventilator 03/23/20 18:00 124/71 03/23/20 17:35 82 25 142/70 (94) 97 03/23/20 17:09 60 03/23/20 17:00 26 Mechanical Ventilator 03/23/20 17:00 26 125/68 Mechanical Ventilator 03/23/20 17:00 125/68 03/23/20 17:00 80 25 125/68 (87) 94 03/23/20 16:54 77 26 40 03/23/20 16:30 76 26 131/66 (87) 96 03/23/20 16:03 75 03/23/20 16:00 60 03/23/20 16:00 25 Mechanical Ventilator 03/23/20 16:00 25 127/63 Mechanical Ventilator 03/23/20 16:00 127/63 03/23/20 16:00 Mechanical Ventilator Mechanical Ventilator 03/23/20 16:00 97.7 76 29 127/63 (84) 97 03/23/20 15:30 76 26 120/61 (80) 97 03/23/20 15:30 74/32 03/23/20 15:04 85 26 50 03/23/20 15:00 26 Mechanical Ventilator 03/23/20 15:00 24 124/72 Mechanical Ventilator 03/23/20 15:00 124/72 03/23/20 15:00 96 26 124/72 (89) 97 03/23/20 14:53 26 Mechanical Ventilator 03/23/20 14:51 27 123/79 Mechanical Ventilator 03/23/20 14:30 106 18 107/73 (84) 97 03/23/20 14:00 98 26 126/75 (92) 96 03/23/20 14:00 25 Mechanical Ventilator 03/23/20 14:00 26 114/52 Mechanical Ventilator 03/23/20 14:00 114/52 03/23/20 13:30 90 26 120/57 (78) 100 03/23/20 13:29 60 03/23/20 13:24 107 36 60 03/23/20 13:00 25 Mechanical Ventilator 03/23/20 13:00 25 120/57 Mechanical Ventilator 03/23/20 13:00 120/57 03/23/20 13:00 90 26 120/57 (78) 100 03/23/20 12:30 100 119/65 (83) 99 03/23/20 12:00 Mechanical Ventilator Mechanical Ventilator 03/23/20 12:00 89 108/61 (77) 99 03/23/20 12:00 26 Mechanical Ventilator 03/23/20 12:00 28 117/52 Mechanical Ventilator 03/23/20 12:00 117/52 03/23/20 12:00 96 03/23/20 12:00 70 03/23/20 12:00 98.2 03/23/20 11:41 118/81 03/23/20 11:40 109/51 Intake and Output 03/23/20 03/24/20 19:00 07:00 Intake Total 1107.2885 ml 1448.814 ml Output Total 1885 ml 2240 ml Balance -777.7115 ml -791.186 ml Free Water 60 ml 90 ml IV Total 552.2885 ml 818.814 ml Tube Feeding 495 ml 540 ml Output Urine Total 1485 ml 1640 ml Stool Total 400 ml 600 ml Laboratory Tests 03/24/20 05:00: Magnesium Level 2.4 03/24/20 05:10: White Blood Count 13.6H, Red Blood Count 3.00L, Hemoglobin 10.2L, Hematocrit 30.4L, Mean Corpuscular Volume 101H, Mean Corpuscular Hemoglobin 34.0H, Mean Corpuscular Hemoglobin Concent 33.6, Red Cell Distribution Width 16.7H, Platelet Count 192, Mean Platelet Volume 6.3L, Neutrophils (%) (Auto) , Lymphocytes (%) (Auto) , Monocytes (%) (Auto) , Eosinophils (%) (Auto) , Basophils (%) (Auto) , Sodium Level 143, Potassium Level 3.4L, Chloride Level 100, Carbon Dioxide Level 40H, Anion Gap 1L, Blood Urea Nitrogen 22H, Creatinine 0.7, Estimat Glomerular Filtration Rate > 60, Glucose Level 249H, Calcium Level 8.9, Total Bilirubin 2.1H, Direct Bilirubin 1.2H, Aspartate Amino Transf (AST/SGOT) 206H, Alanine Aminotransferase (ALT/SGPT) 129H, Alkaline Phosphatase 371H, Ammonia 108H, Total Protein 8.8H, Albumin 2.7L, Globulin 6.1, Albumin/Globulin Ratio 0.4L, Triglycerides Level 203H, Lipase 361 Height (Feet): 5 Height (Inches): 1.00 Weight (Pounds): 237 General Appearance: no apparent distress EENT: other - Intubated on ventilator Cardiovascular: tachycardia Respiratory/Chest: decreased breath sounds Abdomen: soft Cristhian Granados MD March 24, 2020 11:36
--- NOTE | 2020-03-24 11:39 | Infectious Diseases Prog Note ---
Assessment/Plan Assessment/Plan IMPRESSION: 1. Bilateral leg cellulitis,Pseudomonas in culture 2. Anemia. 3. Hypoxemic respiratory failure 4. Thrombocytopenia. 5. Homeless 6. Morbid obesity. 7. Cirrhosis 8. COVID19 pneumonia Positive03/07-03/12 9. Hepatitis C 10.septic shock 11. Pneumonia with Stenotrophomonas & Achromobacter RECOMMENDATION: Will f/u COVID19 test Finished Plaquenil & Zithromax course Received a dose of Actemra & Ivermectin Continue Levaquin, Add IV Vancomycin Blood culture Repeat COVID19 test Case was D/W RN Subjective ROS Limited/Unobtainable: Yes Constitutional: Reports: fever, other - Rr=[id number] Cardiovascular: Reports: other - on Dopamine 6 meche/kg/min Neurologic: Reports: confusion, other - on restraint Allergies: Coded Allergies: No Known Allergies (Unverified , 02/29/20) Objective Vital Signs Last 24 Hour Vital Signs Date Time Temp Pulse Resp B/P (MAP) Pulse Ox O2 Delivery O2 Flow Rate FiO2 03/24/20 11:00 26 Mechanical Ventilator 50 03/24/20 11:00 26 132/80 Mechanical Ventilator 50 03/24/20 11:00 132/80 03/24/20 10:45 26 Mechanical Ventilator 50 03/24/20 10:00 26 Mechanical Ventilator 50 03/24/20 10:00 26 138/83 Mechanical Ventilator 50 03/24/20 10:00 138/84 03/24/20 09:53 22 136/83 Mechanical Ventilator 93.0 50 03/24/20 09:45 155/70 03/24/20 09:45 101.5 111 22 136/83 (100) 99 03/24/20 09:30 111 19 158/78 (104) 98 03/24/20 09:30 136/83 03/24/20 09:15 114 22 152/85 (107) 99 03/24/20 09:00 116 23 151/82 (105) 98 03/24/20 09:00 26 Mechanical Ventilator 50 03/24/20 09:00 26 151/82 Mechanical Ventilator 50 03/24/20 09:00 151/82 03/24/20 08:45 114 18 148/80 (102) 98 03/24/20 08:30 113 22 147/74 (98) 97 03/24/20 08:30 116 32 50 03/24/20 08:15 113 17 160/82 (108) 97 03/24/20 08:00 102.0 116 18 147/91 (109) 98 03/24/20 08:00 50 03/24/20 08:00 50 03/24/20 08:00 26 Non-Rebreather 50 03/24/20 08:00 26 147/91 Mechanical Ventilator 50 03/24/20 08:00 147/91 03/24/20 08:00 Mechanical Ventilator Mechanical Ventilator 03/24/20 07:00 120 19 132/63 (86) 98 03/24/20 07:00 26 Mechanical Ventilator 60 03/24/20 07:00 26 166/97 Mechanical Ventilator 60 03/24/20 07:00 166/97 03/24/20 06:49 116 28 60 03/24/20 06:30 111 19 159/84 (109) 98 03/24/20 06:02 21 Mechanical Ventilator 60 03/24/20 06:02 21 150/69 Mechanical Ventilator 03/24/20 06:02 110/60 03/24/20 06:00 113 21 140/78 (98) 97 03/24/20 05:45 109 20 147/95 (112) 98 03/24/20 05:30 102 25 158/81 (106) 96 03/24/20 05:00 110 17 159/81 (107) 98 03/24/20 05:00 20 Mechanical Ventilator 60 03/24/20 05:00 26 155/88 Mechanical Ventilator 60 03/24/20 05:00 163/88 03/24/20 04:30 109 15 164/90 (114) 98 03/24/20 04:00 90 03/24/20 04:00 Mechanical Ventilator Mechanical Ventilator 03/24/20 04:00 60 03/24/20 04:00 98.2 106 23 165/89 (114) 97 03/24/20 04:00 28 Mechanical Ventilator 60 03/24/20 04:00 20 163/86 Mechanical Ventilator 60 03/24/20 04:00 163/86 03/24/20 03:36 112 36 60 03/24/20 03:30 104 18 157/95 (115) 95 03/24/20 03:00 106 25 174/107 (129) 95 03/24/20 03:00 26 Mechanical Ventilator 60 03/24/20 03:00 26 160/80 Mechanical Ventilator 60 03/24/20 03:00 158/60 03/24/20 02:31 28 167/102 60 03/24/20 02:30 103 19 156/109 (125) 03/24/20 02:21 28 Mechanical Ventilator 60 03/24/20 02:15 99 20 167/102 (123) 03/24/20 02:00 108 20 170/87 (114) 81 03/24/20 02:00 26 Mechanical Ventilator 60 03/24/20 02:00 26 160/80 Mechanical Ventilator 60 03/24/20 02:00 160/80 03/24/20 01:45 94 24 172/90 (117) 94 03/24/20 01:30 96 24 170/89 (116) 93 03/24/20 01:15 102 22 164/119 (134) 95 03/24/20 01:00 26 Mechanical Ventilator 60 03/24/20 01:00 26 160/80 Mechanical Ventilator 60 03/24/20 01:00 160/80 03/24/20 01:00 98 23 158/142 (147) 95 03/24/20 00:30 91 19 165/93 (117) 93 03/24/20 00:00 Mechanical Ventilator Mechanical Ventilator 03/24/20 00:00 60 03/24/20 00:00 60 03/24/20 00:00 99.0 96 22 110/58 (75) 95 03/24/20 00:00 28 Mechanical Ventilator 60 03/24/20 00:00 28 159/81 Mechanical Ventilator 60 03/24/20 00:00 159/81 03/24/20 00:00 82 03/23/20 23:51 100/50 03/23/20 23:30 98 15 140/111 (121) 92 03/23/20 23:21 99 33 60 03/23/20 23:00 57 36 163/82 (109) 100 03/23/20 23:00 28 Mechanical Ventilator 60 03/23/20 23:00 26 120/62 Mechanical Ventilator 60 03/23/20 23:00 138/60 03/23/20 22:30 63 26 71/32 (45) 98 03/23/20 22:00 26 Mechanical Ventilator 60 03/23/20 22:00 137/79 03/23/20 22:00 62 34 137/79 (98) 99 03/23/20 21:30 63 27 125/62 (83) 99 03/23/20 21:00 82 22 141/70 (93) 98 03/23/20 21:00 26 Mechanical Ventilator 60 03/23/20 21:00 26 141/70 Mechanical Ventilator 60 03/23/20 21:00 141/70 03/23/20 20:52 136/80 03/23/20 20:30 84 23 130/84 (99) 99 03/23/20 20:15 89 24 131/64 (86) 99 03/23/20 20:00 Mechanical Ventilator Mechanical Ventilator 03/23/20 20:00 26 Mechanical Ventilator 60 03/23/20 20:00 26 Mechanical Ventilator 60 03/23/20 20:00 26 146/68 Mechanical Ventilator 60 03/23/20 20:00 146/68 03/23/20 20:00 98.0 87 21 146/68 (94) 99 03/23/20 20:00 60 03/23/20 19:47 28 128/63 60 03/23/20 19:43 70 26 60 03/23/20 19:30 73 24 128/63 (84) 97 03/23/20 19:00 79 26 124/66 (85) 99 03/23/20 18:00 77 26 124/76 (92) 95 03/23/20 18:00 24 Mechanical Ventilator 03/23/20 18:00 24 124/71 Mechanical Ventilator 03/23/20 18:00 124/71 03/23/20 17:35 82 25 142/70 (94) 97 03/23/20 17:09 60 03/23/20 17:00 26 Mechanical Ventilator 03/23/20 17:00 26 125/68 Mechanical Ventilator 03/23/20 17:00 125/68 03/23/20 17:00 80 25 125/68 (87) 94 03/23/20 16:54 77 26 40 03/23/20 16:30 76 26 131/66 (87) 96 03/23/20 16:03 75 03/23/20 16:00 60 03/23/20 16:00 25 Mechanical Ventilator 03/23/20 16:00 25 127/63 Mechanical Ventilator 03/23/20 16:00 127/63 03/23/20 16:00 Mechanical Ventilator Mechanical Ventilator 03/23/20 16:00 97.7 76 29 127/63 (84) 97 03/23/20 15:30 76 26 120/61 (80) 97 03/23/20 15:30 74/32 03/23/20 15:04 85 26 50 03/23/20 15:00 26 Mechanical Ventilator 03/23/20 15:00 24 124/72 Mechanical Ventilator 03/23/20 15:00 124/72 03/23/20 15:00 96 26 124/72 (89) 97 03/23/20 14:53 26 Mechanical Ventilator 03/23/20 14:51 27 123/79 Mechanical Ventilator 03/23/20 14:30 106 18 107/73 (84) 97 03/23/20 14:00 98 26 126/75 (92) 96 03/23/20 14:00 25 Mechanical Ventilator 03/23/20 14:00 26 114/52 Mechanical Ventilator 03/23/20 14:00 114/52 03/23/20 13:30 90 26 120/57 (78) 100 03/23/20 13:29 60 03/23/20 13:24 107 36 60 03/23/20 13:00 25 Mechanical Ventilator 03/23/20 13:00 25 120/57 Mechanical Ventilator 03/23/20 13:00 120/57 03/23/20 13:00 90 26 120/57 (78) 100 03/23/20 12:30 100 119/65 (83) 99 03/23/20 12:00 Mechanical Ventilator Mechanical Ventilator 03/23/20 12:00 89 108/61 (77) 99 03/23/20 12:00 26 Mechanical Ventilator 03/23/20 12:00 28 117/52 Mechanical Ventilator 03/23/20 12:00 117/52 03/23/20 12:00 96 03/23/20 12:00 70 03/23/20 12:00 98.2 03/23/20 11:41 118/81 03/23/20 11:40 109/51 Height (Feet): 5 Height (Inches): 1.00 Weight (Pounds): 237 HEENT: mucous membranes moist Respiratory/Chest: other - on ventilator Cardiovascular: tachycardia, other - PICC line Abdomen: soft, non tender, other - NG tube Extremities: other - edema Skin: ulcers Neurologic/Psychiatric: other - sedated Microbiology Date/Time Source Procedure Growth Status 03/22/20 00:15 Sputum Gram Stain - Final Resulted 03/22/20 00:15 Sputum Culture - Preliminary Gram Negative Bacillus 1 Resulted Laboratory Tests Test 03/24/20 05:00 03/24/20 05:10 Magnesium Level 2.4 MG/DL (1.8-2.4) White Blood Count 13.6 K/UL (4.8-10.8) H Red Blood Count 3.00 M/UL (4.20-5.40) L Hemoglobin 10.2 G/DL (12.0-16.0) L Hematocrit 30.4 % (37.0-47.0) L Mean Corpuscular Volume 101 FL (80-99) H Mean Corpuscular Hemoglobin 34.0 PG (27.0-31.0) H Mean Corpuscular Hemoglobin Concent 33.6 G/DL (32.0-36.0) Red Cell Distribution Width 16.7 % (11.6-14.8) H Platelet Count 192 K/UL (150-450) Mean Platelet Volume 6.3 FL (6.5-10.1) L Neutrophils (%) (Auto) % (45.0-75.0) Lymphocytes (%) (Auto) % (20.0-45.0) Monocytes (%) (Auto) % (1.0-10.0) Eosinophils (%) (Auto) % (0.0-3.0) Basophils (%) (Auto) % (0.0-2.0) Sodium Level 143 MMOL/L (136-145) Potassium Level 3.4 MMOL/L (3.5-5.1) L Chloride Level 100 MMOL/L (98-107) Carbon Dioxide Level 40 MMOL/L (21-32) H Anion Gap 1 mmol/L (5-15) L Blood Urea Nitrogen 22 mg/dL (7-18) H Creatinine 0.7 MG/DL (0.55-1.30) Estimat Glomerular Filtration Rate > 60 mL/min (>60) Glucose Level 249 MG/DL (74-106) H Calcium Level 8.9 MG/DL (8.5-10.1) Total Bilirubin 2.1 MG/DL (0.2-1.0) H Direct Bilirubin 1.2 MG/DL (0.0-0.3) H Aspartate Amino Transf (AST/SGOT) 206 U/L (15-37) H Alanine Aminotransferase (ALT/SGPT) 129 U/L (12-78) H Alkaline Phosphatase 371 U/L (46-116) H Ammonia 108 umol/L (11-32) H Total Protein 8.8 G/DL (6.4-8.2) H Albumin 2.7 G/DL (3.4-5.0) L Globulin 6.1 g/dL Albumin/Globulin Ratio 0.4 (1.0-2.7) L Triglycerides Level 203 MG/DL (30-150) H Lipase 361 U/L (73-393) Current Medications Medications (Trade) Dose Ordered Sig/Dolores Route PRN Reason Start Time Stop Time Status Last Admin Dose Admin Acetaminophen (Tylenol) 650 mg Q4H PRN ORAL Temp >100 03/13/20 14:53 04/12/20 14:52 03/19/20 06:25 Acetaminophen (Tylenol) 650 mg Q4H PRN ORAL Mild Pain (Pain Scale 1-3) 03/13/20 14:53 04/12/20 14:52 03/24/20 09:53 Atorvastatin Calcium (Lipitor) 20 mg BEDTIME ORAL 03/24/20 21:00 06/22/20 20:59 Chlorhexidine Gluconate (Lucretia-Hex 2%) 1 applic DAILY@2000 TOPIC 03/13/20 20:00 06/11/20 19:59 03/23/20 19:47 Dextrose (Dextrose 50%) 25 ml Q30M PRN IV Hypoglycemia 03/22/20 18:15 06/20/20 18:14 Dextrose (Dextrose 50%) 50 ml Q30M PRN IV Hypoglycemia 03/22/20 18:15 06/20/20 18:14 Dopamine HCl/ Dextrose 250 ml @ 0 mls/hr Q24H IV 03/16/20 19:30 06/14/20 19:29 03/24/20 06:02 Enoxaparin Sodium (Lovenox) 100 mg EVERY 12 HOURS SUBQ 03/23/20 21:00 06/21/20 20:59 03/24/20 08:47 Fentanyl Citrate 2500 mcg/Sodium Chloride 250 ml @ 0 mls/hr Q24H IV 03/22/20 19:30 03/24/20 12:29 03/24/20 02:21 Fentanyl Citrate 2500 mcg/Sodium Chloride 250 ml @ 0 mls/hr Q24H IV 03/24/20 12:30 03/31/20 12:29 Furosemide (Lasix) 20 mg EVERY 12 HOURS IV 03/22/20 21:00 04/21/20 20:59 03/24/20 08:46 Insulin Aspart (NovoLOG) Q6HR SUBQ 03/16/20 12:00 06/14/20 11:59 03/24/20 05:51 Insulin Detemir (Levemir) 14 units BID SUBQ 03/24/20 09:00 06/20/20 18:59 03/24/20 09:07 Lactulose (Cephulac) 30 gm TID ORAL 03/22/20 13:00 04/21/20 17:59 03/24/20 08:46 Levofloxacin (Levaquin) 750 mg DAILY NG 03/20/20 12:00 03/27/20 11:59 03/24/20 08:44 Levothyroxine Sodium (Synthroid) 50 mcg DAILY IV 03/21/20 09:00 04/17/20 11:59 03/24/20 09:06 Methylprednisolone Sodium Succinate (Solu-MEDROL) 40 mg EVERY 12 HOURS IVP 03/22/20 21:00 06/17/20 20:59 03/24/20 08:45 Metoclopramide HCl (Reglan) 10 mg Q6HR IVP 03/21/20 12:00 04/20/20 11:59 03/24/20 05:49 Midodrine (Pro-Amatine) 5 mg THREE TIMES A DAY NG 03/22/20 18:00 06/20/20 17:59 03/24/20 08:44 Mirtazapine (Remeron) 7.5 mg BEDTIME PRN ORAL SLEEP 03/13/20 14:55 06/11/20 14:54 Non-Formulary Medication (Non-Formulary Med) 1 ea DAILY IV 03/18/20 09:00 04/17/20 08:59 UNV Norepinephrine Bitartrate 16 mg/ Dextrose 500 ml @ 0 mls/hr Q24H IV 03/17/20 21:00 04/16/20 13:02 03/21/20 05:03 Potassium Chloride 100 ml @ 50 mls/hr ONCE ONCE IVPB 03/24/20 12:00 03/24/20 13:59 Potassium Chloride (K-Dur) 40 meq TWICE A DAY NG 03/24/20 18:00 06/21/20 09:29 Propofol 100 ml @ 0 mls/hr Q24H IV 03/22/20 16:30 03/24/20 16:29 03/24/20 09:53 Rifaximin (Xifaxan) 550 mg EVERY 12 HOURS ORAL 03/18/20 09:00 03/25/20 08:59 03/24/20 08:44 Sodium Chloride 100 ml @ 100 mls/hr Q1H IV 03/24/20 12:00 03/24/20 12:59 Vasopressin 100 units/Sodium Chloride 100 ml @ 0 mls/hr Q24H PRN IV For hypotension 03/16/20 11:00 04/15/20 10:59 03/19/20 18:03 Jonathon Shah MD March 24, 2020 11:39
--- NOTE | 2020-03-24 11:39 | General Progress Note ---
Assessment/Plan Status: progressing, unchanged Assessment/Plan: macrocytic anemia elevated LFTS cirrhosis cellulitis elevated Ammonia levels respiratory distress>>> now failure COVID positive pna NGTF abd us>> reviewed Xifaxan fu stool ob>>>neg GI procedures if needed abx per id hepatitis panel>>>>>positive for hep C>>> needs out patient fu poor prognosis decrease lactulose and reglan by half ammonia level in am will fu Subjective ROS Limited/Unobtainable: No Allergies: Coded Allergies: No Known Allergies (Unverified , 02/29/20) Objective Last 24 Hour Vital Signs Date Time Temp Pulse Resp B/P (MAP) Pulse Ox O2 Delivery O2 Flow Rate FiO2 03/24/20 11:00 26 Mechanical Ventilator 50 03/24/20 11:00 26 132/80 Mechanical Ventilator 50 03/24/20 11:00 132/80 03/24/20 10:45 26 Mechanical Ventilator 50 03/24/20 10:00 26 Mechanical Ventilator 50 03/24/20 10:00 26 138/83 Mechanical Ventilator 50 03/24/20 10:00 138/84 03/24/20 09:53 22 136/83 Mechanical Ventilator 93.0 50 03/24/20 09:45 155/70 03/24/20 09:45 101.5 111 22 136/83 (100) 99 03/24/20 09:30 111 19 158/78 (104) 98 03/24/20 09:30 136/83 03/24/20 09:15 114 22 152/85 (107) 99 03/24/20 09:00 116 23 151/82 (105) 98 03/24/20 09:00 26 Mechanical Ventilator 50 03/24/20 09:00 26 151/82 Mechanical Ventilator 50 03/24/20 09:00 151/82 03/24/20 08:45 114 18 148/80 (102) 98 03/24/20 08:30 113 22 147/74 (98) 97 03/24/20 08:30 116 32 50 03/24/20 08:15 113 17 160/82 (108) 97 03/24/20 08:00 102.0 116 18 147/91 (109) 98 03/24/20 08:00 50 03/24/20 08:00 50 03/24/20 08:00 26 Non-Rebreather 50 03/24/20 08:00 26 147/91 Mechanical Ventilator 50 03/24/20 08:00 147/91 03/24/20 08:00 Mechanical Ventilator Mechanical Ventilator 03/24/20 07:00 120 19 132/63 (86) 98 03/24/20 07:00 26 Mechanical Ventilator 60 03/24/20 07:00 26 166/97 Mechanical Ventilator 60 03/24/20 07:00 166/97 03/24/20 06:49 116 28 60 03/24/20 06:30 111 19 159/84 (109) 98 03/24/20 06:02 21 Mechanical Ventilator 60 03/24/20 06:02 21 150/69 Mechanical Ventilator 03/24/20 06:02 110/60 03/24/20 06:00 113 21 140/78 (98) 97 03/24/20 05:45 109 20 147/95 (112) 98 03/24/20 05:30 102 25 158/81 (106) 96 03/24/20 05:00 110 17 159/81 (107) 98 03/24/20 05:00 20 Mechanical Ventilator 60 03/24/20 05:00 26 155/88 Mechanical Ventilator 60 03/24/20 05:00 163/88 03/24/20 04:30 109 15 164/90 (114) 98 03/24/20 04:00 90 03/24/20 04:00 Mechanical Ventilator Mechanical Ventilator 03/24/20 04:00 60 03/24/20 04:00 98.2 106 23 165/89 (114) 97 03/24/20 04:00 28 Mechanical Ventilator 60 03/24/20 04:00 20 163/86 Mechanical Ventilator 60 03/24/20 04:00 163/86 03/24/20 03:36 112 36 60 03/24/20 03:30 104 18 157/95 (115) 95 03/24/20 03:00 106 25 174/107 (129) 95 03/24/20 03:00 26 Mechanical Ventilator 60 03/24/20 03:00 26 160/80 Mechanical Ventilator 60 03/24/20 03:00 158/60 03/24/20 02:31 28 167/102 60 03/24/20 02:30 103 19 156/109 (125) 03/24/20 02:21 28 Mechanical Ventilator 60 03/24/20 02:15 99 20 167/102 (123) 03/24/20 02:00 108 20 170/87 (114) 81 03/24/20 02:00 26 Mechanical Ventilator 60 03/24/20 02:00 26 160/80 Mechanical Ventilator 60 03/24/20 02:00 160/80 03/24/20 01:45 94 24 172/90 (117) 94 03/24/20 01:30 96 24 170/89 (116) 93 03/24/20 01:15 102 22 164/119 (134) 95 03/24/20 01:00 26 Mechanical Ventilator 60 03/24/20 01:00 26 160/80 Mechanical Ventilator 60 03/24/20 01:00 160/80 03/24/20 01:00 98 23 158/142 (147) 95 03/24/20 00:30 91 19 165/93 (117) 93 03/24/20 00:00 Mechanical Ventilator Mechanical Ventilator 03/24/20 00:00 60 03/24/20 00:00 60 03/24/20 00:00 99.0 96 22 110/58 (75) 95 03/24/20 00:00 28 Mechanical Ventilator 60 03/24/20 00:00 28 159/81 Mechanical Ventilator 60 03/24/20 00:00 159/81 03/24/20 00:00 82 03/23/20 23:51 100/50 03/23/20 23:30 98 15 140/111 (121) 92 03/23/20 23:21 99 33 60 03/23/20 23:00 57 36 163/82 (109) 100 03/23/20 23:00 28 Mechanical Ventilator 60 03/23/20 23:00 26 120/62 Mechanical Ventilator 60 03/23/20 23:00 138/60 03/23/20 22:30 63 26 71/32 (45) 98 03/23/20 22:00 26 Mechanical Ventilator 60 03/23/20 22:00 137/79 03/23/20 22:00 62 34 137/79 (98) 99 03/23/20 21:30 63 27 125/62 (83) 99 03/23/20 21:00 82 22 141/70 (93) 98 03/23/20 21:00 26 Mechanical Ventilator 60 03/23/20 21:00 26 141/70 Mechanical Ventilator 60 03/23/20 21:00 141/70 5/7/20 20:52 136/80 03/23/20 20:30 84 23 130/84 (99) 99 03/23/20 20:15 89 24 131/64 (86) 99 03/23/20 20:00 Mechanical Ventilator Mechanical Ventilator 03/23/20 20:00 26 Mechanical Ventilator 60 03/23/20 20:00 26 Mechanical Ventilator 60 03/23/20 20:00 26 146/68 Mechanical Ventilator 60 03/23/20 20:00 146/68 03/23/20 20:00 98.0 87 21 146/68 (94) 99 03/23/20 20:00 60 03/23/20 19:47 28 128/63 60 03/23/20 19:43 70 26 60 03/23/20 19:30 73 24 128/63 (84) 97 03/23/20 19:00 79 26 124/66 (85) 99 03/23/20 18:00 77 26 124/76 (92) 95 03/23/20 18:00 24 Mechanical Ventilator 03/23/20 18:00 24 124/71 Mechanical Ventilator 03/23/20 18:00 124/71 03/23/20 17:35 82 25 142/70 (94) 97 03/23/20 17:09 60 03/23/20 17:00 26 Mechanical Ventilator 03/23/20 17:00 26 125/68 Mechanical Ventilator 03/23/20 17:00 125/68 03/23/20 17:00 80 25 125/68 (87) 94 03/23/20 16:54 77 26 40 03/23/20 16:30 76 26 131/66 (87) 96 03/23/20 16:03 75 03/23/20 16:00 60 03/23/20 16:00 25 Mechanical Ventilator 03/23/20 16:00 25 127/63 Mechanical Ventilator 03/23/20 16:00 127/63 03/23/20 16:00 Mechanical Ventilator Mechanical Ventilator 03/23/20 16:00 97.7 76 29 127/63 (84) 97 03/23/20 15:30 76 26 120/61 (80) 97 03/23/20 15:30 74/32 03/23/20 15:04 85 26 50 03/23/20 15:00 26 Mechanical Ventilator 03/23/20 15:00 24 124/72 Mechanical Ventilator 03/23/20 15:00 124/72 03/23/20 15:00 96 26 124/72 (89) 97 03/23/20 14:53 26 Mechanical Ventilator 03/23/20 14:51 27 123/79 Mechanical Ventilator 03/23/20 14:30 106 18 107/73 (84) 97 03/23/20 14:00 98 26 126/75 (92) 96 03/23/20 14:00 25 Mechanical Ventilator 03/23/20 14:00 26 114/52 Mechanical Ventilator 03/23/20 14:00 114/52 03/23/20 13:30 90 26 120/57 (78) 100 03/23/20 13:29 60 03/23/20 13:24 107 36 60 03/23/20 13:00 25 Mechanical Ventilator 03/23/20 13:00 25 120/57 Mechanical Ventilator 03/23/20 13:00 120/57 03/23/20 13:00 90 26 120/57 (78) 100 03/23/20 12:30 100 119/65 (83) 99 03/23/20 12:00 Mechanical Ventilator Mechanical Ventilator 03/23/20 12:00 89 108/61 (77) 99 03/23/20 12:00 26 Mechanical Ventilator 03/23/20 12:00 28 117/52 Mechanical Ventilator 03/23/20 12:00 117/52 03/23/20 12:00 96 03/23/20 12:00 70 03/23/20 12:00 98.2 03/23/20 11:41 118/81 03/23/20 11:40 109/51 Intake and Output 03/23/20 03/24/20 19:00 07:00 Intake Total 1107.2885 ml 1448.814 ml Output Total 1885 ml 2240 ml Balance -777.7115 ml -791.186 ml Free Water 60 ml 90 ml IV Total 552.2885 ml 818.814 ml Tube Feeding 495 ml 540 ml Output Urine Total 1485 ml 1640 ml Stool Total 400 ml 600 ml Laboratory Tests 03/24/20 05:00: Magnesium Level 2.4 03/24/20 05:10: White Blood Count 13.6H, Red Blood Count 3.00L, Hemoglobin 10.2L, Hematocrit 30.4L, Mean Corpuscular Volume 101H, Mean Corpuscular Hemoglobin 34.0H, Mean Corpuscular Hemoglobin Concent 33.6, Red Cell Distribution Width 16.7H, Platelet Count 192, Mean Platelet Volume 6.3L, Neutrophils (%) (Auto) , Lymphocytes (%) (Auto) , Monocytes (%) (Auto) , Eosinophils (%) (Auto) , Basophils (%) (Auto) , Sodium Level 143, Potassium Level 3.4L, Chloride Level 100, Carbon Dioxide Level 40H, Anion Gap 1L, Blood Urea Nitrogen 22H, Creatinine 0.7, Estimat Glomerular Filtration Rate > 60, Glucose Level 249H, Calcium Level 8.9, Total Bilirubin 2.1H, Direct Bilirubin 1.2H, Aspartate Amino Transf (AST/SGOT) 206H, Alanine Aminotransferase (ALT/SGPT) 129H, Alkaline Phosphatase 371H, Ammonia 108H, Total Protein 8.8H, Albumin 2.7L, Globulin 6.1, Albumin/Globulin Ratio 0.4L, Triglycerides Level 203H, Lipase 361 Height (Feet): 5 Height (Inches): 1.00 Weight (Pounds): 237 General Appearance: no apparent distress EENT: normal ENT inspection Neck: supple Cardiovascular: normal rate Respiratory/Chest: decreased breath sounds Abdomen: normal bowel sounds, non tender, soft Extremities: non-tender Tam Spicer MD March 24, 2020 11:39
--- NOTE | 2020-03-24 12:04 | Hematology/Onc Progress Note ---
Assessment/Plan Assessment/Plan Assessment and Recs # Pancytopenia -- multiple etiologies could be related to underlying liver disease, medication-induced, infection versus viral syndrome versus underlying bone marrow cause, in this case, has severe liver disease and cirrhosis, HEP C++ , also cellulitis --> peripheral smear has been ordered and does not show significant abnormalities and none noted --> Medications have been reviewed --> Continue to monitor for improvement, trend cbc --> Hep panel and HIV are both negative --> US abd ordered to r/o cirrhosis and hepatosplenomegaly ->CIRRHOSIS IS NOTED , LARGE SPLEEN --> reverse isolation if ANC is <2000 --> Give neupogen if ANC <1000 --> Transfuse if hgb <7, with 1 unit prbc --> anemia panel ordered as well-->CW acd --> hgb trend 7-->7.1-->8.4-->8.2 -->8.7-->9.9-->9.2-->9.5-->9.1 --> plt 145k-->152-->162k-->149k-->121k-->171k-->149 --> wbc 3.4-->3.5->3.9->4.4-->11-->10.8 --> abx: sameer/rifaximin-->levaquin /vanc # Cellulitis of the lower extremities --> continue abx as needed as per id --> Started on IV antibiotics-->azithro/cefepime-->levaquin --> as per surg recs, wound care # Ftt --> remains on mirtazapine # Elevated LFTS --> as per gi --> due to cirrhosis # Respiratory failure --> s/p intubation 03/16 --> prone positioning as needed by pulm # Dvt ppx lovenox sq The timing of this note does not necessarily reflect the time of the patient was seen. Greatly appreciate consultation. Subjective HEENT: Denies: no symptoms, eye pain, blurred vision, tearing, double vision, ear pain, ear discharge, nose pain, nose congestion, throat pain, throat swelling, mouth pain, mouth swelling, other Cardiovascular: Denies: no symptoms, chest pain, edema, irregular heart rate, lightheadedness, palpitations, syncope, other Gastrointestinal/Abdominal: Denies: no symptoms, abdomen distended, abdominal pain, black stools, tarry stools, blood in stool, constipated, diarrhea, difficulty swallowing, nausea, poor appetite, poor fluid intake, rectal bleeding , vomiting, other Genitourinary: Denies: no symptoms, burning, discharge, frequency, flank pain, hematuria, incontinence, pain, urgency, other Neurologic/Psychiatric: Denies: no symptoms, anxiety, depressed, emotional problems, headache, numbness, paresthesia, pre-existing deficit, seizure, tingling, tremors, weakness, other Endocrine: Denies: no symptoms, excessive sweating, flushing, intolerance to cold, intolerance to heat, increased hunger, increased thirst, increased urine, unexplained weight gain, unexplained weight loss, other Hematologic/Lymphatic: Denies: no symptoms, anemia, easy bleeding, easy bruising, adenopathy, other Allergies: Coded Allergies: No Known Allergies (Unverified , 02/29/20) Subjective 03/02 no events, no bleeding, hgb 7.1, no hemolysis 03/03 s/p blood, hgb improved to 8.4, stool ob negtive, on abx 03/05 asleep, no acute distress, hgb 8.2 03/06 remains comfortable, on abx, plt remains low 03/07 is on nonrebreather, no night sweats, labs are noted 03/08 labs reviewed, being diuresed, seen by cards, psych, labs noted 03/09 lasix adjusted, wbc remains low at 3.9, reviewed meds, smear 03/10 no night sweats, no bleeding, labs noted, smear noted 03/12 labs noted, none completed, have reordered, cellulitis better 03/13 is continuing with chest pain, cards aware, no further studies until covid neg 03/14 labs noted, no bleeding, diuresis as needed, hgb stable 03/15 alseep is cooperative, no bleeding, meds noted 03/16 no bleeding or chills, hgb 10.8, no night sweats, no major events 03/17 now intubated, no bleeding, labs noted, dw rn 03/19 remains intubated, no bleeding, labs noted, on pressors 03/20 prone posiition, seen by gi and renal, nob leeding, hgb 10.1 03/21 sedated, remains agitated, pulling on 2p restraints, no bleeding 03/22 icu, h/h stable, finished plaq/zithro, no acute distress 03/23 in icu, remains restless no bleeding, labs noted, no bleeding 03/24 in icu, poor prognosis, no night sweats, no fc Objective Objective Current Medications Medications (Trade) Dose Ordered Sig/Dolores Route PRN Reason Start Time Stop Time Status Last Admin Dose Admin Acetaminophen (Tylenol) 650 mg Q4H PRN ORAL Temp >100 03/13/20 14:53 04/12/20 14:52 03/19/20 06:25 Acetaminophen (Tylenol) 650 mg Q4H PRN ORAL Mild Pain (Pain Scale 1-3) 03/13/20 14:53 04/12/20 14:52 03/24/20 09:53 Atorvastatin Calcium (Lipitor) 20 mg BEDTIME ORAL 03/24/20 21:00 06/22/20 20:59 Chlorhexidine Gluconate (Lucretia-Hex 2%) 1 applic DAILY@2000 TOPIC 03/13/20 20:00 06/11/20 19:59 03/23/20 19:47 Dextrose (Dextrose 50%) 25 ml Q30M PRN IV Hypoglycemia 03/22/20 18:15 06/20/20 18:14 Dextrose (Dextrose 50%) 50 ml Q30M PRN IV Hypoglycemia 03/22/20 18:15 06/20/20 18:14 Dopamine HCl/ Dextrose 250 ml @ 0 mls/hr Q24H IV 03/16/20 19:30 06/14/20 19:29 03/24/20 06:02 Enoxaparin Sodium (Lovenox) 100 mg EVERY 12 HOURS SUBQ 03/23/20 21:00 06/21/20 20:59 03/24/20 08:47 Fentanyl Citrate 2500 mcg/Sodium Chloride 250 ml @ 0 mls/hr Q24H IV 03/22/20 19:30 03/24/20 12:29 03/24/20 02:21 Fentanyl Citrate 2500 mcg/Sodium Chloride 250 ml @ 0 mls/hr Q24H IV 03/24/20 12:30 03/31/20 12:29 Furosemide (Lasix) 20 mg EVERY 12 HOURS IV 03/22/20 21:00 04/21/20 20:59 03/24/20 08:46 Insulin Aspart (NovoLOG) Q6HR SUBQ 03/16/20 12:00 06/14/20 11:59 03/24/20 05:51 Insulin Detemir (Levemir) 14 units BID SUBQ 03/24/20 09:00 06/20/20 18:59 03/24/20 09:07 Lactulose (Cephulac) 15 gm TID ORAL 03/24/20 13:00 04/23/20 12:59 Levofloxacin (Levaquin) 750 mg DAILY NG 03/20/20 12:00 03/27/20 11:59 03/24/20 08:44 Levothyroxine Sodium (Synthroid) 50 mcg DAILY IV 03/21/20 09:00 04/17/20 11:59 03/24/20 09:06 Methylprednisolone Sodium Succinate (Solu-MEDROL) 40 mg EVERY 12 HOURS IVP 03/22/20 21:00 06/17/20 20:59 03/24/20 08:45 Metoclopramide HCl (Reglan) 5 mg Q6HR IVP 03/24/20 12:00 04/23/20 11:59 Midodrine (Pro-Amatine) 5 mg THREE TIMES A DAY NG 03/22/20 18:00 06/20/20 17:59 03/24/20 08:44 Mirtazapine (Remeron) 7.5 mg BEDTIME PRN ORAL SLEEP 03/13/20 14:55 06/11/20 14:54 Non-Formulary Medication (Non-Formulary Med) 1 ea DAILY IV 03/18/20 09:00 04/17/20 08:59 UNV Norepinephrine Bitartrate 16 mg/ Dextrose 500 ml @ 0 mls/hr Q24H IV 03/17/20 21:00 04/16/20 13:02 03/21/20 05:03 Potassium Chloride 100 ml @ 50 mls/hr ONCE ONCE IVPB 03/24/20 12:00 03/24/20 13:59 Potassium Chloride (K-Dur) 40 meq TWICE A DAY NG 03/24/20 18:00 06/21/20 09:29 Propofol 100 ml @ 0 mls/hr Q24H IV 03/22/20 16:30 03/24/20 16:29 03/24/20 09:53 Rifaximin (Xifaxan) 550 mg EVERY 12 HOURS ORAL 03/18/20 09:00 03/25/20 08:59 03/24/20 08:44 Sodium Chloride 100 ml @ 100 mls/hr Q1H IV 03/24/20 12:00 03/24/20 12:59 Vancomycin HCl (Vanco rx to dose) 1 ea DAILY PRN MISC Per rx protocol 03/24/20 11:45 04/23/20 11:44 UNV Vasopressin 100 units/Sodium Chloride 100 ml @ 0 mls/hr Q24H PRN IV For hypotension 03/16/20 11:00 04/15/20 10:59 03/19/20 18:03 Last 24 Hour Vital Signs Date Time Temp Pulse Resp B/P (MAP) Pulse Ox O2 Delivery O2 Flow Rate FiO2 03/24/20 11:45 101 24 122/70 (87) 95 03/24/20 11:30 112 16 137/87 (104) 98 03/24/20 11:15 110 16 152/80 (104) 96 03/24/20 11:00 110 19 132/80 (97) 98 03/24/20 11:00 26 Mechanical Ventilator 50 03/24/20 11:00 26 132/80 Mechanical Ventilator 50 03/24/20 11:00 132/80 03/24/20 10:45 111 17 134/85 (101) 99 03/24/20 10:45 26 Mechanical Ventilator 50 03/24/20 10:30 91 27 92/49 (63) 98 03/24/20 10:23 100.0 03/24/20 10:15 113 19 138/84 (102) 97 03/24/20 10:00 26 Mechanical Ventilator 50 03/24/20 10:00 26 138/83 Mechanical Ventilator 50 03/24/20 10:00 138/84 03/24/20 10:00 117 18 155/70 (98) 97 03/24/20 09:53 22 136/83 Mechanical Ventilator 93.0 50 03/24/20 09:45 155/70 03/24/20 09:45 101.5 111 22 136/83 (100) 99 03/24/20 09:30 111 19 158/78 (104) 98 03/24/20 09:30 136/83 03/24/20 09:15 114 22 152/85 (107) 99 03/24/20 09:00 116 23 151/82 (105) 98 03/24/20 09:00 26 Mechanical Ventilator 50 03/24/20 09:00 26 151/82 Mechanical Ventilator 50 03/24/20 09:00 151/82 03/24/20 08:45 114 18 148/80 (102) 98 03/24/20 08:30 113 22 147/74 (98) 97 03/24/20 08:30 116 32 50 03/24/20 08:15 113 17 160/82 (108) 97 03/24/20 08:00 102.0 116 18 147/91 (109) 98 03/24/20 08:00 50 03/24/20 08:00 50 03/24/20 08:00 26 Non-Rebreather 50 03/24/20 08:00 26 147/91 Mechanical Ventilator 50 03/24/20 08:00 147/91 03/24/20 08:00 117 03/24/20 08:00 Mechanical Ventilator Mechanical Ventilator 03/24/20 07:00 120 19 132/63 (86) 98 03/24/20 07:00 26 Mechanical Ventilator 60 03/24/20 07:00 26 166/97 Mechanical Ventilator 60 03/24/20 07:00 166/97 03/24/20 06:49 116 28 60 03/24/20 06:30 111 19 159/84 (109) 98 03/24/20 06:02 21 Mechanical Ventilator 60 03/24/20 06:02 21 150/69 Mechanical Ventilator 03/24/20 06:02 110/60 03/24/20 06:00 113 21 140/78 (98) 97 03/24/20 05:45 109 20 147/95 (112) 98 03/24/20 05:30 102 25 158/81 (106) 96 03/24/20 05:00 110 17 159/81 (107) 98 03/24/20 05:00 20 Mechanical Ventilator 60 03/24/20 05:00 26 155/88 Mechanical Ventilator 60 03/24/20 05:00 163/88 03/24/20 04:30 109 15 164/90 (114) 98 03/24/20 04:00 90 03/24/20 04:00 Mechanical Ventilator Mechanical Ventilator 03/24/20 04:00 60 03/24/20 04:00 98.2 106 23 165/89 (114) 97 03/24/20 04:00 28 Mechanical Ventilator 60 03/24/20 04:00 20 163/86 Mechanical Ventilator 60 03/24/20 04:00 163/86 03/24/20 03:36 112 36 60 03/24/20 03:30 104 18 157/95 (115) 95 03/24/20 03:00 106 25 174/107 (129) 95 03/24/20 03:00 26 Mechanical Ventilator 60 03/24/20 03:00 26 160/80 Mechanical Ventilator 60 03/24/20 03:00 158/60 03/24/20 02:31 28 167/102 60 03/24/20 02:30 103 19 156/109 (125) 03/24/20 02:21 28 Mechanical Ventilator 60 03/24/20 02:15 99 20 167/102 (123) 03/24/20 02:00 108 20 170/87 (114) 81 03/24/20 02:00 26 Mechanical Ventilator 60 03/24/20 02:00 26 160/80 Mechanical Ventilator 60 03/24/20 02:00 160/80 03/24/20 01:45 94 24 172/90 (117) 94 03/24/20 01:30 96 24 170/89 (116) 93 03/24/20 01:15 102 22 164/119 (134) 95 03/24/20 01:00 26 Mechanical Ventilator 60 03/24/20 01:00 26 160/80 Mechanical Ventilator 60 03/24/20 01:00 160/80 03/24/20 01:00 98 23 158/142 (147) 95 03/24/20 00:30 91 19 165/93 (117) 93 03/24/20 00:00 Mechanical Ventilator Mechanical Ventilator 03/24/20 00:00 60 03/24/20 00:00 60 03/24/20 00:00 99.0 96 22 110/58 (75) 95 03/24/20 00:00 28 Mechanical Ventilator 60 03/24/20 00:00 28 159/81 Mechanical Ventilator 60 03/24/20 00:00 159/81 03/24/20 00:00 82 03/23/20 23:51 100/50 03/23/20 23:30 98 15 140/111 (121) 92 03/23/20 23:21 99 33 60 03/23/20 23:00 57 36 163/82 (109) 100 03/23/20 23:00 28 Mechanical Ventilator 60 03/23/20 23:00 26 120/62 Mechanical Ventilator 60 03/23/20 23:00 138/60 03/23/20 22:30 63 26 71/32 (45) 98 03/23/20 22:00 26 Mechanical Ventilator 60 03/23/20 22:00 137/79 03/23/20 22:00 62 34 137/79 (98) 99 03/23/20 21:30 63 27 125/62 (83) 99 03/23/20 21:00 82 22 141/70 (93) 98 03/23/20 21:00 26 Mechanical Ventilator 60 03/23/20 21:00 26 141/70 Mechanical Ventilator 60 03/23/20 21:00 141/70 03/23/20 20:52 136/80 03/23/20 20:30 84 23 130/84 (99) 99 03/23/20 20:15 89 24 131/64 (86) 99 03/23/20 20:00 Mechanical Ventilator Mechanical Ventilator 03/23/20 20:00 26 Mechanical Ventilator 60 03/23/20 20:00 26 Mechanical Ventilator 60 03/23/20 20:00 26 146/68 Mechanical Ventilator 60 03/23/20 20:00 146/68 03/23/20 20:00 98.0 87 21 146/68 (94) 99 03/23/20 20:00 60 03/23/20 19:47 28 128/63 60 03/23/20 19:43 70 26 60 03/23/20 19:30 73 24 128/63 (84) 97 03/23/20 19:00 79 26 124/66 (85) 99 03/23/20 18:00 77 26 124/76 (92) 95 03/23/20 18:00 24 Mechanical Ventilator 03/23/20 18:00 24 124/71 Mechanical Ventilator 03/23/20 18:00 124/71 03/23/20 17:35 82 25 142/70 (94) 97 03/23/20 17:09 60 03/23/20 17:00 26 Mechanical Ventilator 03/23/20 17:00 26 125/68 Mechanical Ventilator 03/23/20 17:00 125/68 03/23/20 17:00 80 25 125/68 (87) 94 03/23/20 16:54 77 26 40 03/23/20 16:30 76 26 131/66 (87) 96 03/23/20 16:03 75 03/23/20 16:00 60 03/23/20 16:00 25 Mechanical Ventilator 03/23/20 16:00 25 127/63 Mechanical Ventilator 03/23/20 16:00 127/63 03/23/20 16:00 Mechanical Ventilator Mechanical Ventilator 03/23/20 16:00 97.7 76 29 127/63 (84) 97 03/23/20 15:30 76 26 120/61 (80) 97 03/23/20 15:30 74/32 03/23/20 15:04 85 26 50 03/23/20 15:00 26 Mechanical Ventilator 03/23/20 15:00 24 124/72 Mechanical Ventilator 03/23/20 15:00 124/72 03/23/20 15:00 96 26 124/72 (89) 97 03/23/20 14:53 26 Mechanical Ventilator 03/23/20 14:51 27 123/79 Mechanical Ventilator 03/23/20 14:30 106 18 107/73 (84) 97 03/23/20 14:00 98 26 126/75 (92) 96 03/23/20 14:00 25 Mechanical Ventilator 03/23/20 14:00 26 114/52 Mechanical Ventilator 03/23/20 14:00 114/52 03/23/20 13:30 90 26 120/57 (78) 100 03/23/20 13:29 60 03/23/20 13:24 107 36 60 03/23/20 13:00 25 Mechanical Ventilator 03/23/20 13:00 25 120/57 Mechanical Ventilator 03/23/20 13:00 120/57 03/23/20 13:00 90 26 120/57 (78) 100 03/23/20 12:30 100 119/65 (83) 99 03/23/20 12:00 Mechanical Ventilator Mechanical Ventilator 03/23/20 12:00 89 108/61 (77) 99 03/23/20 12:00 26 Mechanical Ventilator 03/23/20 12:00 28 117/52 Mechanical Ventilator 03/23/20 12:00 117/52 03/23/20 12:00 96 03/23/20 12:00 70 03/23/20 12:00 98.2 03/23/20 11:41 118/81 03/23/20 11:40 109/51 03/23/20 11:30 103 109/51 (70) 99 03/23/20 11:05 95 32 70 03/23/20 11:00 26 Mechanical Ventilator 03/23/20 11:00 26 109/59 Mechanical Ventilator 03/23/20 11:00 109/59 03/23/20 11:00 104 109/59 (76) 99 03/23/20 10:00 80 03/23/20 10:00 96 143/73 (96) 100 03/23/20 10:00 25 Mechanical Ventilator 03/23/20 10:00 26 143/73 Mechanical Ventilator 03/23/20 10:00 143/73 03/23/20 09:56 90 27 80 03/23/20 09:30 78 139/64 (89) 99 03/23/20 09:30 139/64 03/23/20 09:00 76 161/80 (107) 99 03/23/20 09:00 26 Mechanical Ventilator 03/23/20 09:00 26 75/31 Mechanical Ventilator 03/23/20 09:00 75/31 03/23/20 08:45 82/42 03/23/20 08:30 79 75/31 (46) 100 03/23/20 08:28 26 125/85 Mechanical Ventilator 90 03/23/20 08:27 26 98/41 Mechanical Ventilator 03/23/20 08:15 26 134/85 Mechanical Ventilator 03/23/20 08:00 98.9 106 134/85 (101) 99 03/23/20 08:00 Mechanical Ventilator Mechanical Ventilator 03/23/20 08:00 96 03/23/20 08:00 26 Mechanical Ventilator 03/23/20 08:00 26 132/62 Mechanical Ventilator 03/23/20 08:00 90 03/23/20 07:30 104 134/64 (87) 81 03/23/20 07:24 90 03/23/20 07:17 108 37 80 03/23/20 07:00 108 121/64 (83) 93 03/23/20 07:00 26 Mechanical Ventilator 03/23/20 07:00 26 121/64 Mechanical Ventilator 03/23/20 06:00 100.0 105 132/58 (82) 94 03/23/20 06:00 26 Mechanical Ventilator 70 03/23/20 06:00 26 121/64 Mechanical Ventilator 70 03/23/20 06:00 121/64 03/23/20 05:30 114 24 123/63 (83) 94 03/23/20 05:00 115 24 115/54 (74) 95 03/23/20 05:00 26 Mechanical Ventilator 70 03/23/20 05:00 25 109/54 Mechanical Ventilator 70 03/23/20 05:00 109/54 03/23/20 04:30 114 26 123/60 (81) 94 03/23/20 04:00 Mechanical Ventilator Mechanical Ventilator 03/23/20 04:00 24 Mechanical Ventilator 70 03/23/20 04:00 23 96/63 Mechanical Ventilator 70 03/23/20 04:00 96/63 03/23/20 04:00 99.0 111 19 102/62 (75) 96 03/23/20 04:00 70 03/23/20 04:00 107 03/23/20 03:30 112 31 97/75 (82) 96 03/23/20 03:22 117 31 80 03/23/20 03:13 28 Mechanical Ventilator 03/23/20 03:13 121/64 03/23/20 03:00 118 22 147/76 (99) 98 03/23/20 03:00 24 Mechanical Ventilator 70 03/23/20 03:00 24 134/66 Mechanical Ventilator 70 03/23/20 03:00 134/66 03/23/20 02:30 115 22 132/70 (90) 96 03/23/20 02:00 115 18 111/68 (82) 97 03/23/20 02:00 28 Mechanical Ventilator 70 03/23/20 02:00 28 108/77 Mechanical Ventilator 70 03/23/20 02:00 108/77 03/23/20 01:30 117 21 117/65 (82) 97 03/23/20 01:15 117 21 147/82 (103) 97 03/23/20 01:00 108 22 170/75 (106) 96 03/23/20 01:00 24 Mechanical Ventilator 70 03/23/20 01:00 28 147/82 Mechanical Ventilator 70 03/23/20 01:00 147/82 03/23/20 00:45 115 16 167/84 (111) 98 03/23/20 00:30 114 21 177/85 (115) 69 03/23/20 00:28 113 19 168/90 (116) 03/23/20 00:15 112 21 161/81 (107) 95 03/23/20 00:00 98.8 105 26 159/85 (109) 95 03/23/20 00:00 Mechanical Ventilator Mechanical Ventilator 03/23/20 00:00 28 Mechanical Ventilator 70 03/23/20 00:00 28 161/81 Mechanical Ventilator 70 03/23/20 00:00 161/81 03/23/20 00:00 112 03/23/20 00:00 70 03/22/20 23:30 108 22 160/92 (114) 98 03/22/20 23:24 108 33 80 03/22/20 23:00 107 20 169/81 (110) 100 03/22/20 23:00 28 Mechanical Ventilator 70 03/22/20 23:00 26 148/95 Mechanical Ventilator 70 03/22/20 23:00 148/95 03/22/20 22:30 106 16 152/88 (109) 100 03/22/20 22:00 28 Mechanical Ventilator 70 03/22/20 22:00 28 150/82 Mechanical Ventilator 70 03/22/20 22:00 150/88 03/22/20 22:00 97 24 138/82 (100) 98 03/22/20 21:45 28 122/55 Mechanical Ventilator 70 03/22/20 21:30 28 129/70 Mechanical Ventilator 70 03/22/20 21:30 129/70 03/22/20 21:30 96 23 143/83 (103) 100 03/22/20 21:15 28 120/70 Mechanical Ventilator 70 03/22/20 21:15 130/73 03/22/20 21:00 28 Mechanical Ventilator 70 03/22/20 21:00 26 136/74 Mechanical Ventilator 70 03/22/20 21:00 138/74 03/22/20 21:00 81 25 142/76 (98) 95 03/22/20 20:30 76 30 128/70 (89) 99 03/22/20 20:26 70/35 5/20 20:00 98.0 75 23 131/66 (87) 99 20 20:00 Mechanical Ventilator Mechanical Ventilator 03/22/20 20:00 76 20 20:00 26 Mechanical Ventilator 70 20 20:00 26 100/50 Mechanical Ventilator 70 20 20:00 100/50 520 20:00 70 03/22/20 19:34 67 26 80 5/20 19:30 77 25 138/70 (92) 98 20 19:30 21 Mechanical Ventilator 03/22/20 19:00 70 22 139/74 (95) 94 03/22/20 19:00 26 139/74 Mechanical Ventilator 03/22/20 19:00 139/74 03/22/20 18:30 91/55 03/22/20 18:00 76 26 110/63 (79) 100 03/22/20 18:00 32 110/63 Mechanical Ventilator 03/22/20 18:00 110/63 03/22/20 18:00 26 Mechanical Ventilator 03/22/20 17:30 91 38 132/70 (90) 99 03/22/20 17:12 26 133/70 Mechanical Ventilator 03/22/20 17:00 133/70 03/22/20 17:00 29 Mechanical Ventilator 03/22/20 17:00 87 36 133/70 (91) 98 20 16:30 87 24 130/69 (89) 97 03/22/20 16:00 70 03/22/20 16:00 130/69 03/22/20 16:00 26 Mechanical Ventilator 03/22/20 16:00 97.4 87 25 123/72 (89) 98 03/22/20 16:00 77 03/22/20 16:00 Mechanical Ventilator Mechanical Ventilator 03/22/20 15:59 26 Mechanical Ventilator 03/22/20 15:30 77 28 108/59 (75) 93 20 15:12 70 26 80 5/20 15:00 68 27 118/69 (85) 96 20 15:00 118/68 03/22/20 15:00 26 Mechanical Ventilator 03/22/20 14:00 61 26 150/80 (103) 96 20 14:00 139/80 03/22/20 14:00 26 Mechanical Ventilator 03/22/20 13:09 80 03/22/20 13:00 144/77 03/22/20 13:00 26 Mechanical Ventilator 03/22/20 13:00 65 26 149/82 (104) 96 03/22/20 12:30 66 25 139/80 (99) 96 03/22/20 12:26 84 26 80 Intake and Output 03/23/20 03/24/20 19:00 07:00 Intake Total 1107.2885 ml 1448.814 ml Output Total 1885 ml 2240 ml Balance -777.7115 ml -791.186 ml Free Water 60 ml 90 ml IV Total 552.2885 ml 818.814 ml Tube Feeding 495 ml 540 ml Output Urine Total 1485 ml 1640 ml Stool Total 400 ml 600 ml Labs Test 03/21/20 21:30 03/22/20 04:00 03/22/20 06:55 03/23/20 03:34 Arterial Blood pH 7.325 (7.350-7.450) 7.295 (7.350-7.450) Arterial Blood Partial Pressure CO2 58.3 mmHg (35.0-45.0) 68.5 mmHg (35.0-45.0) Arterial Blood Partial Pressure O2 148.4 mmHg (75.0-100.0) 117.9 mmHg (75.0-100.0) Arterial Blood HCO3 29.7 mmol/L (22.0-26.0) 32.6 mmol/L (22.0-26.0) Arterial Blood Oxygen Saturation 98.6 % (95-100) 99.1 % (95-100) Arterial Blood Base Excess 2.7 (-2-2) 4.6 (-2-2) Joaquin Test Positive Positive White Blood Count 10.8 K/UL (4.8-10.8) 11.8 K/UL (4.8-10.8) Red Blood Count 2.82 M/UL (4.20-5.40) 2.73 M/UL (4.20-5.40) Hemoglobin 9.5 G/DL (12.0-16.0) 9.1 G/DL (12.0-16.0) Hematocrit 28.9 % (37.0-47.0) 27.7 % (37.0-47.0) Mean Corpuscular Volume 103 FL (80-99) 102 FL (80-99) Mean Corpuscular Hemoglobin 33.6 PG (27.0-31.0) 33.5 PG (27.0-31.0) Mean Corpuscular Hemoglobin Concent 32.8 G/DL (32.0-36.0) 33.0 G/DL (32.0-36.0) Red Cell Distribution Width 17.0 % (11.6-14.8) 17.1 % (11.6-14.8) Platelet Count 149 K/UL (150-450) 178 K/UL (150-450) Mean Platelet Volume 6.2 FL (6.5-10.1) 6.4 FL (6.5-10.1) Neutrophils (%) (Auto) 81.6 % (45.0-75.0) % (45.0-75.0) Lymphocytes (%) (Auto) 8.2 % (20.0-45.0) % (20.0-45.0) Monocytes (%) (Auto) 9.1 % (1.0-10.0) % (1.0-10.0) Eosinophils (%) (Auto) 0.0 % (0.0-3.0) % (0.0-3.0) Basophils (%) (Auto) 1.0 % (0.0-2.0) % (0.0-2.0) Sodium Level 138 MMOL/L (136-145) 143 MMOL/L (136-145) Potassium Level 4.1 MMOL/L (3.5-5.1) 3.6 MMOL/L (3.5-5.1) Chloride Level 102 MMOL/L (98-107) 103 MMOL/L (98-107) Carbon Dioxide Level 34 MMOL/L (21-32) 36 MMOL/L (21-32) Anion Gap 2 mmol/L (5-15) 5 mmol/L (5-15) Blood Urea Nitrogen 25 mg/dL (7-18) 25 mg/dL (7-18) Creatinine 0.8 MG/DL (0.55-1.30) 0.8 MG/DL (0.55-1.30) Estimat Glomerular Filtration Rate > 60 mL/min (>60) > 60 mL/min (>60) Glucose Level 208 MG/DL (74-106) 205 MG/DL (74-106) Calcium Level 8.6 MG/DL (8.5-10.1) 8.8 MG/DL (8.5-10.1) Phosphorus Level 2.7 MG/DL (2.5-4.9) Magnesium Level 2.4 MG/DL (1.8-2.4) Total Bilirubin 1.6 MG/DL (0.2-1.0) 1.5 MG/DL (0.2-1.0) Direct Bilirubin 0.8 MG/DL (0.0-0.3) 0.8 MG/DL (0.0-0.3) Aspartate Amino Transf (AST/SGOT) 83 U/L (15-37) 127 U/L (15-37) Alanine Aminotransferase (ALT/SGPT) 36 U/L (12-78) 60 U/L (12-78) Alkaline Phosphatase 183 U/L (46-116) 255 U/L (46-116) Ammonia 104 umol/L (11-32) 105 umol/L (11-32) C-Reactive Protein, Quantitative 6.2 mg/dL (0.00-0.90) Pro-B-Type Natriuretic Peptide 06609 pg/mL (0-125) Total Protein 8.5 G/DL (6.4-8.2) 8.1 G/DL (6.4-8.2) Albumin 2.5 G/DL (3.4-5.0) 2.4 G/DL (3.4-5.0) Globulin 6.0 g/dL 5.7 g/dL Albumin/Globulin Ratio 0.4 (1.0-2.7) 0.4 (1.0-2.7) Triglycerides Level 161 MG/DL (30-150) Test 03/23/20 09:31 03/24/20 05:00 03/24/20 05:10 Arterial Blood pH 7.358 (7.350-7.450) Arterial Blood Partial Pressure CO2 66.7 mmHg (35.0-45.0) Arterial Blood Partial Pressure O2 106.3 mmHg (75.0-100.0) Arterial Blood HCO3 36.7 mmol/L (22.0-26.0) Arterial Blood Oxygen Saturation 97.4 % (95-100) Arterial Blood Base Excess 9.3 (-2-2) Joaquin Test Positive Magnesium Level 2.4 MG/DL (1.8-2.4) White Blood Count 13.6 K/UL (4.8-10.8) Red Blood Count 3.00 M/UL (4.20-5.40) Hemoglobin 10.2 G/DL (12.0-16.0) Hematocrit 30.4 % (37.0-47.0) Mean Corpuscular Volume 101 FL (80-99) Mean Corpuscular Hemoglobin 34.0 PG (27.0-31.0) Mean Corpuscular Hemoglobin Concent 33.6 G/DL (32.0-36.0) Red Cell Distribution Width 16.7 % (11.6-14.8) Platelet Count 192 K/UL (150-450) Mean Platelet Volume 6.3 FL (6.5-10.1) Neutrophils (%) (Auto) % (45.0-75.0) Lymphocytes (%) (Auto) % (20.0-45.0) Monocytes (%) (Auto) % (1.0-10.0) Eosinophils (%) (Auto) % (0.0-3.0) Basophils (%) (Auto) % (0.0-2.0) Sodium Level 143 MMOL/L (136-145) Potassium Level 3.4 MMOL/L (3.5-5.1) Chloride Level 100 MMOL/L (98-107) Carbon Dioxide Level 40 MMOL/L (21-32) Anion Gap 1 mmol/L (5-15) Blood Urea Nitrogen 22 mg/dL (7-18) Creatinine 0.7 MG/DL (0.55-1.30) Estimat Glomerular Filtration Rate > 60 mL/min (>60) Glucose Level 249 MG/DL (74-106) Calcium Level 8.9 MG/DL (8.5-10.1) Total Bilirubin 2.1 MG/DL (0.2-1.0) Direct Bilirubin 1.2 MG/DL (0.0-0.3) Aspartate Amino Transf (AST/SGOT) 206 U/L (15-37) Alanine Aminotransferase (ALT/SGPT) 129 U/L (12-78) Alkaline Phosphatase 371 U/L (46-116) Ammonia 108 umol/L (11-32) Total Protein 8.8 G/DL (6.4-8.2) Albumin 2.7 G/DL (3.4-5.0) Globulin 6.1 g/dL Albumin/Globulin Ratio 0.4 (1.0-2.7) Triglycerides Level 203 MG/DL (30-150) Lipase 361 U/L (73-393) Height (Feet): 5 Height (Inches): 1.00 Weight (Pounds): 237 Objective Physical Exam: Vitals: reviewed General: NAD HEENT: nc, at Neck: supple Chest: crackles b/l, mech breath sounds ++intubated Cardiovascular: RRR, no s3, s4 EXT ++ Significant edema and erythema bilateral lower extremity, patient also has blistering on both feet given the edema, whittish overcrust/crusting++ Neurologic: sedated Skin: other - As above Brett Mcclain MD March 24, 2020 12:04
--- NOTE | 2020-03-24 14:43 | Surgery Progress Note ---
Surgery Progress Note Subjective Additional Comments worsening leukocytosis and lft's went setting and pressors improved / weaning Objective Last 24 Hour Vital Signs Date Time Temp Pulse Resp B/P (MAP) Pulse Ox O2 Delivery O2 Flow Rate FiO2 03/24/20 13:45 106 19 168/73 (104) 82 03/24/20 13:30 107 22 152/80 (104) 94 03/24/20 13:15 107 18 131/68 (89) 97 03/24/20 13:02 111 32 50 03/24/20 13:00 106 23 137/90 (106) 97 03/24/20 12:45 107 29 150/74 (99) 95 03/24/20 12:30 110 18 132/80 (97) 97 03/24/20 12:29 26 Mechanical Ventilator 50 03/24/20 12:27 129/76 03/24/20 12:15 110 18 129/76 (93) 97 03/24/20 12:00 50 03/24/20 12:00 100.1 109 23 160/72 (101) 96 03/24/20 12:00 Mechanical Ventilator Mechanical Ventilator 03/24/20 12:00 112 03/24/20 11:45 101 24 122/70 (87) 95 03/24/20 11:30 112 16 137/87 (104) 98 03/24/20 11:30 109 30 50 03/24/20 11:15 110 16 152/80 (104) 96 03/24/20 11:00 110 19 132/80 (97) 98 03/24/20 11:00 26 Mechanical Ventilator 50 03/24/20 11:00 26 132/80 Mechanical Ventilator 50 03/24/20 11:00 132/80 03/24/20 10:45 111 17 134/85 (101) 99 03/24/20 10:45 26 Mechanical Ventilator 50 03/24/20 10:30 91 27 92/49 (63) 98 03/24/20 10:23 100.0 03/24/20 10:15 113 19 138/84 (102) 97 03/24/20 10:00 26 Mechanical Ventilator 50 03/24/20 10:00 26 138/83 Mechanical Ventilator 50 03/24/20 10:00 138/84 03/24/20 10:00 117 18 155/70 (98) 97 03/24/20 09:53 22 136/83 Mechanical Ventilator 93.0 50 03/24/20 09:45 155/70 03/24/20 09:45 101.5 111 22 136/83 (100) 99 03/24/20 09:30 111 19 158/78 (104) 98 03/24/20 09:30 136/83 03/24/20 09:15 114 22 152/85 (107) 99 03/24/20 09:00 116 23 151/82 (105) 98 03/24/20 09:00 26 Mechanical Ventilator 50 03/24/20 09:00 26 151/82 Mechanical Ventilator 50 03/24/20 09:00 151/82 03/24/20 08:45 114 18 148/80 (102) 98 03/24/20 08:30 113 22 147/74 (98) 97 03/24/20 08:30 116 32 50 03/24/20 08:15 113 17 160/82 (108) 97 03/24/20 08:00 102.0 116 18 147/91 (109) 98 03/24/20 08:00 50 03/24/20 08:00 50 03/24/20 08:00 26 Non-Rebreather 50 03/24/20 08:00 26 147/91 Mechanical Ventilator 50 03/24/20 08:00 147/91 03/24/20 08:00 117 03/24/20 08:00 Mechanical Ventilator Mechanical Ventilator 03/24/20 07:00 120 19 132/63 (86) 98 03/24/20 07:00 26 Mechanical Ventilator 60 03/24/20 07:00 26 166/97 Mechanical Ventilator 60 03/24/20 07:00 166/97 03/24/20 06:49 116 28 60 03/24/20 06:30 111 19 159/84 (109) 98 03/24/20 06:02 21 Mechanical Ventilator 60 03/24/20 06:02 21 150/69 Mechanical Ventilator 03/24/20 06:02 110/60 03/24/20 06:00 113 21 140/78 (98) 97 03/24/20 05:45 109 20 147/95 (112) 98 03/24/20 05:30 102 25 158/81 (106) 96 03/24/20 05:00 110 17 159/81 (107) 98 5/8/20 05:00 20 Mechanical Ventilator 60 03/24/20 05:00 26 155/88 Mechanical Ventilator 60 03/24/20 05:00 163/88 03/24/20 04:30 109 15 164/90 (114) 98 03/24/20 04:00 90 03/24/20 04:00 Mechanical Ventilator Mechanical Ventilator 03/24/20 04:00 60 03/24/20 04:00 98.2 106 23 165/89 (114) 97 03/24/20 04:00 28 Mechanical Ventilator 60 03/24/20 04:00 20 163/86 Mechanical Ventilator 60 03/24/20 04:00 163/86 03/24/20 03:36 112 36 60 03/24/20 03:30 104 18 157/95 (115) 95 03/24/20 03:00 106 25 174/107 (129) 95 03/24/20 03:00 26 Mechanical Ventilator 60 03/24/20 03:00 26 160/80 Mechanical Ventilator 60 03/24/20 03:00 158/60 03/24/20 02:31 28 167/102 60 03/24/20 02:30 103 19 156/109 (125) 03/24/20 02:21 28 Mechanical Ventilator 60 03/24/20 02:15 99 20 167/102 (123) 03/24/20 02:00 108 20 170/87 (114) 81 03/24/20 02:00 26 Mechanical Ventilator 60 03/24/20 02:00 26 160/80 Mechanical Ventilator 60 03/24/20 02:00 160/80 03/24/20 01:45 94 24 172/90 (117) 94 03/24/20 01:30 96 24 170/89 (116) 93 03/24/20 01:15 102 22 164/119 (134) 95 03/24/20 01:00 26 Mechanical Ventilator 60 03/24/20 01:00 26 160/80 Mechanical Ventilator 60 03/24/20 01:00 160/80 03/24/20 01:00 98 23 158/142 (147) 95 03/24/20 00:30 91 19 165/93 (117) 93 03/24/20 00:00 Mechanical Ventilator Mechanical Ventilator 03/24/20 00:00 60 03/24/20 00:00 60 03/24/20 00:00 99.0 96 22 110/58 (75) 95 03/24/20 00:00 28 Mechanical Ventilator 60 03/24/20 00:00 28 159/81 Mechanical Ventilator 60 03/24/20 00:00 159/81 03/24/20 00:00 82 03/23/20 23:51 100/50 03/23/20 23:30 98 15 140/111 (121) 92 03/23/20 23:21 99 33 60 03/23/20 23:00 57 36 163/82 (109) 100 03/23/20 23:00 28 Mechanical Ventilator 60 03/23/20 23:00 26 120/62 Mechanical Ventilator 60 03/23/20 23:00 138/60 03/23/20 22:30 63 26 71/32 (45) 98 03/23/20 22:00 26 Mechanical Ventilator 60 03/23/20 22:00 137/79 03/23/20 22:00 62 34 137/79 (98) 99 03/23/20 21:30 63 27 125/62 (83) 99 03/23/20 21:00 82 22 141/70 (93) 98 03/23/20 21:00 26 Mechanical Ventilator 60 03/23/20 21:00 26 141/70 Mechanical Ventilator 60 03/23/20 21:00 141/70 03/23/20 20:52 136/80 03/23/20 20:30 84 23 130/84 (99) 99 03/23/20 20:15 89 24 131/64 (86) 99 03/23/20 20:00 Mechanical Ventilator Mechanical Ventilator 03/23/20 20:00 26 Mechanical Ventilator 60 03/23/20 20:00 26 Mechanical Ventilator 60 03/23/20 20:00 26 146/68 Mechanical Ventilator 60 03/23/20 20:00 146/68 03/23/20 20:00 98.0 87 21 146/68 (94) 99 03/23/20 20:00 60 03/23/20 19:47 28 128/63 60 03/23/20 19:43 70 26 60 03/23/20 19:30 73 24 128/63 (84) 97 03/23/20 19:00 79 26 124/66 (85) 99 03/23/20 18:00 77 26 124/76 (92) 95 03/23/20 18:00 24 Mechanical Ventilator 03/23/20 18:00 24 124/71 Mechanical Ventilator 03/23/20 18:00 124/71 03/23/20 17:35 82 25 142/70 (94) 97 03/23/20 17:09 60 03/23/20 17:00 26 Mechanical Ventilator 03/23/20 17:00 26 125/68 Mechanical Ventilator 03/23/20 17:00 125/68 03/23/20 17:00 80 25 125/68 (87) 94 03/23/20 16:54 77 26 40 03/23/20 16:30 76 26 131/66 (87) 96 03/23/20 16:03 75 03/23/20 16:00 60 03/23/20 16:00 25 Mechanical Ventilator 03/23/20 16:00 25 127/63 Mechanical Ventilator 03/23/20 16:00 127/63 03/23/20 16:00 Mechanical Ventilator Mechanical Ventilator 03/23/20 16:00 97.7 76 29 127/63 (84) 97 03/23/20 15:30 76 26 120/61 (80) 97 03/23/20 15:30 74/32 03/23/20 15:04 85 26 50 03/23/20 15:00 26 Mechanical Ventilator 03/23/20 15:00 24 124/72 Mechanical Ventilator 03/23/20 15:00 124/72 03/23/20 15:00 96 26 124/72 (89) 97 03/23/20 14:53 26 Mechanical Ventilator 03/23/20 14:51 27 123/79 Mechanical Ventilator I&O Intake and Output 03/23/20 03/24/20 19:00 07:00 Intake Total 1107.2885 ml 1448.814 ml Output Total 1885 ml 2240 ml Balance -777.7115 ml -791.186 ml Free Water 60 ml 90 ml IV Total 552.2885 ml 818.814 ml Tube Feeding 495 ml 540 ml Output Urine Total 1485 ml 1640 ml Stool Total 400 ml 600 ml Dressing: dry Wound: clean Cardiovascular: RSR Respiratory: decreased breath sounds Abdomen: soft, non-tender, present bowel sounds, decreased bowel sounds Extremities: edema, no tenderness, no cyanosis, other Laboratory Tests Test 03/24/20 05:00 03/24/20 05:10 Magnesium Level 2.4 MG/DL (1.8-2.4) White Blood Count 13.6 K/UL (4.8-10.8) H Red Blood Count 3.00 M/UL (4.20-5.40) L Hemoglobin 10.2 G/DL (12.0-16.0) L Hematocrit 30.4 % (37.0-47.0) L Mean Corpuscular Volume 101 FL (80-99) H Mean Corpuscular Hemoglobin 34.0 PG (27.0-31.0) H Mean Corpuscular Hemoglobin Concent 33.6 G/DL (32.0-36.0) Red Cell Distribution Width 16.7 % (11.6-14.8) H Platelet Count 192 K/UL (150-450) Mean Platelet Volume 6.3 FL (6.5-10.1) L Neutrophils (%) (Auto) % (45.0-75.0) Lymphocytes (%) (Auto) % (20.0-45.0) Monocytes (%) (Auto) % (1.0-10.0) Eosinophils (%) (Auto) % (0.0-3.0) Basophils (%) (Auto) % (0.0-2.0) Sodium Level 143 MMOL/L (136-145) Potassium Level 3.4 MMOL/L (3.5-5.1) L Chloride Level 100 MMOL/L (98-107) Carbon Dioxide Level 40 MMOL/L (21-32) H Anion Gap 1 mmol/L (5-15) L Blood Urea Nitrogen 22 mg/dL (7-18) H Creatinine 0.7 MG/DL (0.55-1.30) Estimat Glomerular Filtration Rate > 60 mL/min (>60) Glucose Level 249 MG/DL (74-106) H Calcium Level 8.9 MG/DL (8.5-10.1) Total Bilirubin 2.1 MG/DL (0.2-1.0) H Direct Bilirubin 1.2 MG/DL (0.0-0.3) H Aspartate Amino Transf (AST/SGOT) 206 U/L (15-37) H Alanine Aminotransferase (ALT/SGPT) 129 U/L (12-78) H Alkaline Phosphatase 371 U/L (46-116) H Ammonia 108 umol/L (11-32) H Total Protein 8.8 G/DL (6.4-8.2) H Albumin 2.7 G/DL (3.4-5.0) L Globulin 6.1 g/dL Albumin/Globulin Ratio 0.4 (1.0-2.7) L Triglycerides Level 203 MG/DL (30-150) H Lipase 361 U/L (73-393) Plan Problems: (1) Cellulitis Assessment & Plan: bilateral lower extremity cellulitis / edema chronic venous status changes dermatitis no abscess no purulent drainage ulcerations forming. keep lower extremity elevated while in bed apply skin protectant / moisturizing cream daily okay to shower okay to wrap soft after cream abx as per ID for cellulitis okay for diet duplex ordered trend labs will follow with recs thank you No evidence of deep venous thrombosis involving the visualized veins of the RIGHT lower extremity. refused eval of left COVID ++ cxr noted cont current supportive care improving labs stable improving slowly wean pressors as tolerated Patient is acutely worsened intubated on vent support 2 pressors now worsening labs worsening Prognosis is guarded we will continue with maximal support efforts weaning vent weaning pressors leukocytosis trend lft's (2) COVID-19 Assessment & Plan: see above Theron Sotomayor March 24, 2020 14:43
--- NOTE | 2020-03-24 16:46 | General Progress Note ---
Assessment/Plan Problem List: (1) Cellulitis ICD Codes: L03.90 - Cellulitis, unspecified SNOMED: [id number] Qualifiers: Qualified Codes: L03.119 - Cellulitis of unspecified part of limb Status: progressing, unchanged Assessment/Plan: r hopesodavid for rx of elevated ammonia cellulitis lower extremity worsening leukocytosis elev LFT low k/borderline sepsis anemia.stable h/h cirrhosis elevated trop 0.4 .i Subjective ROS Limited/Unobtainable: Yes Allergies: Coded Allergies: No Known Allergies (Unverified , 02/29/20) Objective Last 24 Hour Vital Signs Date Time Temp Pulse Resp B/P (MAP) Pulse Ox O2 Delivery O2 Flow Rate FiO2 03/24/20 16:00 26 Mechanical Ventilator 60 03/24/20 16:00 26 172/73 Mechanical Ventilator 60 03/24/20 16:00 172/73 03/24/20 15:53 60 03/24/20 15:45 101 25 172/73 (106) 92 03/24/20 15:30 105 21 123/63 (83) 93 03/24/20 15:15 102 21 172/75 (107) 86 03/24/20 15:02 99 29 60 03/24/20 15:00 106 18 153/70 (97) 03/24/20 15:00 26 Mechanical Ventilator 50 03/24/20 15:00 26 172/75 Mechanical Ventilator 50 03/24/20 15:00 172/75 03/24/20 14:45 106 18 155/73 (100) 03/24/20 14:30 106 21 170/77 (108) 03/24/20 14:15 107 18 157/64 (95) 03/24/20 14:00 106 18 154/86 (108) 98 03/24/20 14:00 26 Mechanical Ventilator 50 03/24/20 14:00 26 154/86 Mechanical Ventilator 50 03/24/20 14:00 154/86 03/24/20 13:45 106 19 168/73 (104) 82 03/24/20 13:30 107 22 152/80 (104) 94 03/24/20 13:15 107 18 131/68 (89) 97 03/24/20 13:02 111 32 50 03/24/20 13:00 26 Mechanical Ventilator 50 03/24/20 13:00 26 137/90 Mechanical Ventilator 50 03/24/20 13:00 152/80 03/24/20 13:00 106 23 137/90 (106) 97 03/24/20 12:45 107 29 150/74 (99) 95 03/24/20 12:30 110 18 132/80 (97) 97 03/24/20 12:29 26 Mechanical Ventilator 50 03/24/20 12:27 26 Mechanical Ventilator 50 03/24/20 12:27 129/76 03/24/20 12:26 150/74 03/24/20 12:15 110 18 129/76 (93) 97 03/24/20 12:00 50 03/24/20 12:00 100.1 109 23 160/72 (101) 96 03/24/20 12:00 Mechanical Ventilator Mechanical Ventilator 03/24/20 12:00 26 Mechanical Ventilator 50 03/24/20 12:00 122/70 03/24/20 12:00 112 03/24/20 11:45 101 24 122/70 (87) 95 03/24/20 11:30 112 16 137/87 (104) 98 03/24/20 11:30 109 30 50 03/24/20 11:15 110 16 152/80 (104) 96 03/24/20 11:00 110 19 132/80 (97) 98 03/24/20 11:00 26 Mechanical Ventilator 50 03/24/20 11:00 26 132/80 Mechanical Ventilator 50 03/24/20 11:00 132/80 03/24/20 10:45 111 17 134/85 (101) 99 03/24/20 10:45 26 Mechanical Ventilator 50 03/24/20 10:30 91 27 92/49 (63) 98 03/24/20 10:23 100.0 03/24/20 10:15 113 19 138/84 (102) 97 03/24/20 10:00 26 Mechanical Ventilator 50 03/24/20 10:00 26 138/83 Mechanical Ventilator 50 03/24/20 10:00 138/84 03/24/20 10:00 117 18 155/70 (98) 97 03/24/20 09:53 22 136/83 Mechanical Ventilator 93.0 50 03/24/20 09:45 155/70 03/24/20 09:45 101.5 111 22 136/83 (100) 99 03/24/20 09:30 111 19 158/78 (104) 98 03/24/20 09:30 136/83 03/24/20 09:15 114 22 152/85 (107) 99 03/24/20 09:00 116 23 151/82 (105) 98 03/24/20 09:00 26 Mechanical Ventilator 50 03/24/20 09:00 26 151/82 Mechanical Ventilator 50 03/24/20 09:00 151/82 03/24/20 08:45 114 18 148/80 (102) 98 03/24/20 08:30 113 22 147/74 (98) 97 03/24/20 08:30 116 32 50 03/24/20 08:15 113 17 160/82 (108) 97 03/24/20 08:00 102.0 116 18 147/91 (109) 98 03/24/20 08:00 50 03/24/20 08:00 50 03/24/20 08:00 26 Non-Rebreather 50 03/24/20 08:00 26 147/91 Mechanical Ventilator 50 03/24/20 08:00 147/91 03/24/20 08:00 117 03/24/20 08:00 Mechanical Ventilator Mechanical Ventilator 03/24/20 07:00 120 19 132/63 (86) 98 03/24/20 07:00 26 Mechanical Ventilator 60 03/24/20 07:00 26 166/97 Mechanical Ventilator 60 03/24/20 07:00 166/97 03/24/20 06:49 116 28 60 03/24/20 06:30 111 19 159/84 (109) 98 03/24/20 06:02 21 Mechanical Ventilator 60 03/24/20 06:02 21 150/69 Mechanical Ventilator 03/24/20 06:02 110/60 03/24/20 06:00 113 21 140/78 (98) 97 03/24/20 05:45 109 20 147/95 (112) 98 03/24/20 05:30 102 25 158/81 (106) 96 03/24/20 05:00 110 17 159/81 (107) 98 03/24/20 05:00 20 Mechanical Ventilator 60 03/24/20 05:00 26 155/88 Mechanical Ventilator 60 03/24/20 05:00 163/88 03/24/20 04:30 109 15 164/90 (114) 98 03/24/20 04:00 90 03/24/20 04:00 Mechanical Ventilator Mechanical Ventilator 03/24/20 04:00 60 03/24/20 04:00 98.2 106 23 165/89 (114) 97 03/24/20 04:00 28 Mechanical Ventilator 60 03/24/20 04:00 20 163/86 Mechanical Ventilator 60 03/24/20 04:00 163/86 03/24/20 03:36 112 36 60 03/24/20 03:30 104 18 157/95 (115) 95 03/24/20 03:00 106 25 174/107 (129) 95 03/24/20 03:00 26 Mechanical Ventilator 60 03/24/20 03:00 26 160/80 Mechanical Ventilator 60 03/24/20 03:00 158/60 03/24/20 02:31 28 167/102 60 03/24/20 02:30 103 19 156/109 (125) 03/24/20 02:21 28 Mechanical Ventilator 60 03/24/20 02:15 99 20 167/102 (123) 03/24/20 02:00 108 20 170/87 (114) 81 03/24/20 02:00 26 Mechanical Ventilator 60 03/24/20 02:00 26 160/80 Mechanical Ventilator 60 03/24/20 02:00 160/80 03/24/20 01:45 94 24 172/90 (117) 94 03/24/20 01:30 96 24 170/89 (116) 93 03/24/20 01:15 102 22 164/119 (134) 95 03/24/20 01:00 26 Mechanical Ventilator 60 03/24/20 01:00 26 160/80 Mechanical Ventilator 60 03/24/20 01:00 160/80 03/24/20 01:00 98 23 158/142 (147) 95 03/24/20 00:30 91 19 165/93 (117) 93 03/24/20 00:00 Mechanical Ventilator Mechanical Ventilator 03/24/20 00:00 60 03/24/20 00:00 60 03/24/20 00:00 99.0 96 22 110/58 (75) 95 03/24/20 00:00 28 Mechanical Ventilator 60 03/24/20 00:00 28 159/81 Mechanical Ventilator 60 03/24/20 00:00 159/81 03/24/20 00:00 82 5/7/20 23:51 100/50 03/23/20 23:30 98 15 140/111 (121) 92 03/23/20 23:21 99 33 60 03/23/20 23:00 57 36 163/82 (109) 100 03/23/20 23:00 28 Mechanical Ventilator 60 03/23/20 23:00 26 120/62 Mechanical Ventilator 60 03/23/20 23:00 138/60 03/23/20 22:30 63 26 71/32 (45) 98 03/23/20 22:00 26 Mechanical Ventilator 60 03/23/20 22:00 137/79 03/23/20 22:00 62 34 137/79 (98) 99 03/23/20 21:30 63 27 125/62 (83) 99 03/23/20 21:00 82 22 141/70 (93) 98 03/23/20 21:00 26 Mechanical Ventilator 60 03/23/20 21:00 26 141/70 Mechanical Ventilator 60 03/23/20 21:00 141/70 03/23/20 20:52 136/80 03/23/20 20:30 84 23 130/84 (99) 99 03/23/20 20:15 89 24 131/64 (86) 99 03/23/20 20:00 Mechanical Ventilator Mechanical Ventilator 03/23/20 20:00 26 Mechanical Ventilator 60 03/23/20 20:00 26 Mechanical Ventilator 60 03/23/20 20:00 26 146/68 Mechanical Ventilator 60 03/23/20 20:00 146/68 03/23/20 20:00 98.0 87 21 146/68 (94) 99 03/23/20 20:00 60 03/23/20 19:47 28 128/63 60 03/23/20 19:43 70 26 60 03/23/20 19:30 73 24 128/63 (84) 97 03/23/20 19:00 79 26 124/66 (85) 99 03/23/20 18:00 77 26 124/76 (92) 95 03/23/20 18:00 24 Mechanical Ventilator 03/23/20 18:00 24 124/71 Mechanical Ventilator 03/23/20 18:00 124/71 03/23/20 17:35 82 25 142/70 (94) 97 5/7/20 17:09 60 03/23/20 17:00 26 Mechanical Ventilator 03/23/20 17:00 26 125/68 Mechanical Ventilator 03/23/20 17:00 125/68 03/23/20 17:00 80 25 125/68 (87) 94 03/23/20 16:54 77 26 40 Intake and Output 03/23/20 03/24/20 19:00 07:00 Intake Total 1107.2885 ml 1448.814 ml Output Total 1885 ml 2240 ml Balance -777.7115 ml -791.186 ml Free Water 60 ml 90 ml IV Total 552.2885 ml 818.814 ml Tube Feeding 495 ml 540 ml Output Urine Total 1485 ml 1640 ml Stool Total 400 ml 600 ml Laboratory Tests 03/24/20 05:00: Magnesium Level 2.4 03/24/20 05:10: White Blood Count 13.6H, Red Blood Count 3.00L, Hemoglobin 10.2L, Hematocrit 30.4L, Mean Corpuscular Volume 101H, Mean Corpuscular Hemoglobin 34.0H, Mean Corpuscular Hemoglobin Concent 33.6, Red Cell Distribution Width 16.7H, Platelet Count 192, Mean Platelet Volume 6.3L, Neutrophils (%) (Auto) , Lymphocytes (%) (Auto) , Monocytes (%) (Auto) , Eosinophils (%) (Auto) , Basophils (%) (Auto) , Sodium Level 143, Potassium Level 3.4L, Chloride Level 100, Carbon Dioxide Level 40H, Anion Gap 1L, Blood Urea Nitrogen 22H, Creatinine 0.7, Estimat Glomerular Filtration Rate > 60, Glucose Level 249H, Calcium Level 8.9, Total Bilirubin 2.1H, Direct Bilirubin 1.2H, Aspartate Amino Transf (AST/SGOT) 206H, Alanine Aminotransferase (ALT/SGPT) 129H, Alkaline Phosphatase 371H, Ammonia 108H, Total Protein 8.8H, Albumin 2.7L, Globulin 6.1, Albumin/Globulin Ratio 0.4L, Triglycerides Level 203H, Lipase 361 Height (Feet): 5 Height (Inches): 1.00 Weight (Pounds): 237 Celso Moreno MD March 24, 2020 16:46
[2020-03-24] MEDS: LORazepam Inj 2mg/ml 1ml IV PRN (17:29)
[2020-03-24] MEDS: Dyna-Hex 2% Top Sol 2oz TOPIC SCH (19:55)
[2020-03-24] MEDS: Norepinephrine Bitartrate 16 MG in D5W 500ml 484 ML IV SCH (21:00)
[2020-03-24] MEDS: Atorvastatin 20mg tab ORAL SCH (21:12)
[2020-03-24] MEDS: Vancomycin 500 MG in NS 110 ML IVPB SCH (21:25)
--- NOTE | 2020-03-24 23:19 | Pulmonolgy Critical Care Note ---
Critical Care - Asmt/Plan Assessment/Plan: Pulmonary CCM Progress Note HPI Patient is a 59 year old woman with significant obesity, admitted with bilateral lower extremity cellulitis, had complained of increased swelling and redness to both of her feet and legs Had elevated BNP on admission, persistent edema since admission, worsening hypoxia, LE DVT (right) negative for DVT. Patient had previous hospitalizations for cellulitis, PMH Hypothyroidism, Obesity, Cirrhosis, Anemia, Anxiety, Cellulitis COVID 19 positive, Pneumonia VQ no significant perfusion abnormality, prev LE dupplex negative High D Dimer level, on Lovenox PPX Being diuresed, persistent infiltrates on CXR, on ACVC, no tolerating Proning Some improvement in PaO2/FIO2, VC settings adjusted, P 14, FIO2 60% Hyponatremia improving, renal following Hypothyroidism Awaiting Remdasovir, [facility] - Remdesavir requested for when available, [facility] - not available as yet Received IL6 inhibitor inititial dose (4mg/Kg - all that was available), subsequent dose pending, d/w Pharmacy, on steroids - being weaned On therapeutic dose Lovenox - incr D dimer Seen earlier Allergies: No Known Allergies Past Medical History: Obesity, Cirrhosis, Anemia, Anxiety, Cellulitis, Hypothyroidism All Other Systems: negative except mentioned in HPI Physical Exam Vital Signs Noted General Appearance: Obese, Sedated,intubated Head: normocephalic, atraumatic Eyes: bilateral eye PERRL, bilateral eye EOMI ENT: EOM grossly intact, moist MM, no LN Respiratory: Bilateral crackles, bilateral rhonchi Cardiovascular: regular rate, rhythm, HS1, HS2 RRR Gastrointestinal: Obese, soft non tender, ND Musculoskeletal: Mild to moderate edema and erythema bilateral lower extremity , patient also has crusting on both feet, Neurologic: sedated, no focalsigns Impression: Covid Pneumonia, s/p IL6 inhibitor, sp Hydroxychloroquine, Ivermectin Significant hypoxia, elevated PCO2 Bilateral Lower Extremity Cellulitis Elevated NPA, severe bilateral edema - improving Cirrhosis Splenomegaly Anemia Anxiety Hyponatremia Hypothyroidism Plan IV Antibiotics per ID On trial of steroids - currently 40 mg bid, s/p IL6 inhibitor Diurese as tolerated, note persistently elevated BNP Surgery following for wounds Hematology following for anemia, observing for Neutropenia/thrombocytopenia Diurese PRN Renal following for hyponatremia Endocrine following for Hypothyroidism, on ISS Monitor labs Bronchodilators PPX - Lovenox - therapeutic dose AC VC Proning PRN 3% saline PRN per renal PRN Supplement electrolytes PRN Albuterol PRN MDI RN CRITICAL CARE Medications Previously Patients daughter Tri - discussed grave prognosis, suggested DNAR - will consider [facility] - Remdesavir ordered, awaiting supply, awaiting next dose on IL6 inhibitor once supply available Labs Noted Chest X-Ray: Cardiomegaly, left lower lobe atelectasis versus effusion, worsening infiltrates/congestion Subjective ROS Limited/Unobtainable: No Constitutional: Reports: no symptoms Gastrointestinal/Abdominal: Reports: no symptoms Musculoskeletal: Reports: other - SOB Allergies: Coded Allergies: No Known Allergies (Unverified , 02/29/20) ICU time 50 minutes Critical Care - Objective Last 24 Hour Vital Signs Date Time Temp Pulse Resp B/P (MAP) Pulse Ox O2 Delivery O2 Flow Rate FiO2 03/24/20 21:57 76/49 03/24/20 21:00 180/89 03/24/20 20:00 26 178/86 Mechanical Ventilator 60 03/24/20 20:00 178/86 03/24/20 19:23 59 26 60 03/24/20 19:00 26 113/60 Mechanical Ventilator 60 03/24/20 19:00 113/60 03/24/20 18:45 60 26 54/24 (34) 95 03/24/20 18:30 26 Mechanical Ventilator 60 03/24/20 18:30 54/24 03/24/20 18:30 63 26 58/25 (36) 94 03/24/20 18:15 81 26 118/55 (76) 91 03/24/20 18:00 93 24 120/56 (77) 90 03/24/20 18:00 26 120/56 Mechanical Ventilator 60 03/24/20 18:00 26 Mechanical Ventilator 60 03/24/20 17:45 100 22 165/82 (109) 92 03/24/20 17:38 26 174/72 Mechanical Ventilator 60 03/24/20 17:30 26 165/82 Mechanical Ventilator 60 03/24/20 17:30 99 20 174/72 (106) 89 03/24/20 17:15 100 19 179/85 (116) 91 03/24/20 17:00 26 Mechanical Ventilator 60 03/24/20 17:00 26 166/88 Mechanical Ventilator 60 03/24/20 17:00 174/85 03/24/20 17:00 100 19 166/88 (114) 92 03/24/20 16:56 98 29 60 03/24/20 16:45 91 21 172/85 (114) 88 03/24/20 16:30 104 21 173/100 (124) 92 03/24/20 16:15 96 21 163/98 (119) 90 03/24/20 16:00 90 03/24/20 16:00 Mechanical Ventilator Mechanical Ventilator 03/24/20 16:00 26 Mechanical Ventilator 60 03/24/20 16:00 26 172/73 Mechanical Ventilator 60 03/24/20 16:00 172/73 03/24/20 16:00 99.5 103 18 173/87 (115) 90 03/24/20 15:53 60 03/24/20 15:45 101 25 172/73 (106) 92 03/24/20 15:30 105 21 123/63 (83) 93 03/24/20 15:15 102 21 172/75 (107) 86 03/24/20 15:02 99 29 60 03/24/20 15:00 106 18 153/70 (97) 03/24/20 15:00 26 Mechanical Ventilator 50 03/24/20 15:00 26 172/75 Mechanical Ventilator 50 03/24/20 15:00 172/75 03/24/20 14:45 106 18 155/73 (100) 03/24/20 14:30 106 21 170/77 (108) 03/24/20 14:15 107 18 157/64 (95) 03/24/20 14:00 106 18 154/86 (108) 98 03/24/20 14:00 26 Mechanical Ventilator 50 03/24/20 14:00 26 154/86 Mechanical Ventilator 50 03/24/20 14:00 154/86 03/24/20 13:45 106 19 168/73 (104) 82 03/24/20 13:30 107 22 152/80 (104) 94 03/24/20 13:15 107 18 131/68 (89) 97 03/24/20 13:02 111 32 50 03/24/20 13:00 26 Mechanical Ventilator 50 03/24/20 13:00 26 137/90 Mechanical Ventilator 50 03/24/20 13:00 152/80 03/24/20 13:00 106 23 137/90 (106) 97 5/8/20 12:45 107 29 150/74 (99) 95 03/24/20 12:30 110 18 132/80 (97) 97 03/24/20 12:29 26 Mechanical Ventilator 50 03/24/20 12:27 26 Mechanical Ventilator 50 03/24/20 12:27 129/76 03/24/20 12:26 150/74 03/24/20 12:15 110 18 129/76 (93) 97 03/24/20 12:00 50 03/24/20 12:00 100.1 109 23 160/72 (101) 96 03/24/20 12:00 Mechanical Ventilator Mechanical Ventilator 03/24/20 12:00 26 Mechanical Ventilator 50 03/24/20 12:00 122/70 03/24/20 12:00 112 03/24/20 11:45 101 24 122/70 (87) 95 03/24/20 11:30 112 16 137/87 (104) 98 03/24/20 11:30 109 30 50 03/24/20 11:15 110 16 152/80 (104) 96 03/24/20 11:00 110 19 132/80 (97) 98 03/24/20 11:00 26 Mechanical Ventilator 50 03/24/20 11:00 26 132/80 Mechanical Ventilator 50 03/24/20 11:00 132/80 03/24/20 10:45 111 17 134/85 (101) 99 03/24/20 10:45 26 Mechanical Ventilator 50 03/24/20 10:30 91 27 92/49 (63) 98 03/24/20 10:23 100.0 03/24/20 10:15 113 19 138/84 (102) 97 03/24/20 10:00 26 Mechanical Ventilator 50 03/24/20 10:00 26 138/83 Mechanical Ventilator 50 03/24/20 10:00 138/84 03/24/20 10:00 117 18 155/70 (98) 97 03/24/20 09:53 22 136/83 Mechanical Ventilator 93.0 50 03/24/20 09:45 155/70 03/24/20 09:45 101.5 111 22 136/83 (100) 99 03/24/20 09:30 111 19 158/78 (104) 98 03/24/20 09:30 136/83 03/24/20 09:15 114 22 152/85 (107) 99 03/24/20 09:00 116 23 151/82 (105) 98 03/24/20 09:00 26 Mechanical Ventilator 50 03/24/20 09:00 26 151/82 Mechanical Ventilator 50 03/24/20 09:00 151/82 03/24/20 08:45 114 18 148/80 (102) 98 03/24/20 08:30 113 22 147/74 (98) 97 03/24/20 08:30 116 32 50 03/24/20 08:15 113 17 160/82 (108) 97 03/24/20 08:00 102.0 116 18 147/91 (109) 98 03/24/20 08:00 50 03/24/20 08:00 50 03/24/20 08:00 26 Non-Rebreather 50 03/24/20 08:00 26 147/91 Mechanical Ventilator 50 03/24/20 08:00 147/91 03/24/20 08:00 117 03/24/20 08:00 Mechanical Ventilator Mechanical Ventilator 03/24/20 07:00 120 19 132/63 (86) 98 03/24/20 07:00 26 Mechanical Ventilator 60 03/24/20 07:00 26 166/97 Mechanical Ventilator 60 03/24/20 07:00 166/97 03/24/20 06:49 116 28 60 03/24/20 06:30 111 19 159/84 (109) 98 03/24/20 06:02 21 Mechanical Ventilator 60 03/24/20 06:02 21 150/69 Mechanical Ventilator 03/24/20 06:02 110/60 03/24/20 06:00 113 21 140/78 (98) 97 03/24/20 05:45 109 20 147/95 (112) 98 03/24/20 05:30 102 25 158/81 (106) 96 03/24/20 05:00 110 17 159/81 (107) 98 03/24/20 05:00 20 Mechanical Ventilator 60 03/24/20 05:00 26 155/88 Mechanical Ventilator 60 03/24/20 05:00 163/88 03/24/20 04:30 109 15 164/90 (114) 98 03/24/20 04:00 90 03/24/20 04:00 Mechanical Ventilator Mechanical Ventilator 03/24/20 04:00 60 5/8/20 04:00 98.2 106 23 165/89 (114) 97 03/24/20 04:00 28 Mechanical Ventilator 60 03/24/20 04:00 20 163/86 Mechanical Ventilator 60 03/24/20 04:00 163/86 03/24/20 03:36 112 36 60 03/24/20 03:30 104 18 157/95 (115) 95 03/24/20 03:00 106 25 174/107 (129) 95 03/24/20 03:00 26 Mechanical Ventilator 60 03/24/20 03:00 26 160/80 Mechanical Ventilator 60 03/24/20 03:00 158/60 03/24/20 02:31 28 167/102 60 03/24/20 02:30 103 19 156/109 (125) 03/24/20 02:21 28 Mechanical Ventilator 60 03/24/20 02:15 99 20 167/102 (123) 03/24/20 02:00 108 20 170/87 (114) 81 03/24/20 02:00 26 Mechanical Ventilator 60 03/24/20 02:00 26 160/80 Mechanical Ventilator 60 03/24/20 02:00 160/80 03/24/20 01:45 94 24 172/90 (117) 94 03/24/20 01:30 96 24 170/89 (116) 93 03/24/20 01:15 102 22 164/119 (134) 95 03/24/20 01:00 26 Mechanical Ventilator 60 03/24/20 01:00 26 160/80 Mechanical Ventilator 60 03/24/20 01:00 160/80 03/24/20 01:00 98 23 158/142 (147) 95 03/24/20 00:30 91 19 165/93 (117) 93 03/24/20 00:00 Mechanical Ventilator Mechanical Ventilator 03/24/20 00:00 60 03/24/20 00:00 60 03/24/20 00:00 99.0 96 22 110/58 (75) 95 03/24/20 00:00 28 Mechanical Ventilator 60 03/24/20 00:00 28 159/81 Mechanical Ventilator 60 03/24/20 00:00 159/81 03/24/20 00:00 82 03/23/20 23:51 100/50 03/23/20 23:30 98 15 140/111 (121) 92 03/23/20 23:21 99 33 60 Micro: Microbiology Date/Time Source Procedure Growth Status 03/22/20 00:15 Sputum Gram Stain - Final Resulted 03/22/20 00:15 Sputum Culture - Preliminary Gram Negative Bacillus 1 Resulted Accucheck: 259 Critical Care - Subjective ROS Limited/Unobtainable: No Condition: critical FI02: 60 Vent Support Breath Rate: 26 Vent Support Mode: AC Vent Tidal Volume: 400 Sputum Amount: Small PEEP: 14.0 PIP: 34 Tube Feeding Amount: 35 I&O: Intake and Output 03/23/20 03/24/20 19:00 07:00 Intake Total 1107.2885 ml 1448.814 ml Output Total 1885 ml 2240 ml Balance -777.7115 ml -791.186 ml Free Water 60 ml 90 ml IV Total 552.2885 ml 818.814 ml Tube Feeding 495 ml 540 ml Output Urine Total 1485 ml 1640 ml Stool Total 400 ml 600 ml ET-Tube: 7.5 ET Position: 21 Doron Carrillo MD March 24, 2020 23:18
[2020-03-25] VITALS (58 sets, daily range): BP systolic 74–172; BP diastolic 27–115
[2020-03-25] MEDS: Metoclopramide 10mg/2ml Inj IVP SCH ×5 (00:12→23:39)
[2020-03-25] MEDS: NovoLOG Insulin Flexpen SUBQ SCH ×5 (00:13→23:56)
[2020-03-25] MEDS: propofoL 1,000mg/100ml 100 ML IV SCH ×3 (00:28→13:07)
[2020-03-25] MEDS: DOPamine 400mg/250ml 250 ML IV SCH ×6 (00:46→20:11)
[2020-03-25] MEDS: LORazepam Inj 2mg/ml 1ml IV PRN ×3 (00:46→23:39)
[2020-03-25 04:45] LABS: MEAN CORPUSCULAR VOLUME 103 FL (80-99); PLATELET COUNT 187 K/UL (150-450); RED CELL DISTRIBUTION WIDTH 19.3 % (11.6-14.8); WHITE BLOOD COUNT 21.1 K/UL (4.8-10.8)
[2020-03-25 05:38] LABS: ALANINE AMINOTRANSFERASE 143 U/L (12-78); ALBUMIN 2.7 G/DL (3.4-5.0); ALBUMIN/GLOBULIN RATIO 0.5 (1.0-2.7); ALKALINE PHOSPHATASE 297 U/L (46-116); ANION GAP 5 mmol/L (5-15); ASPARTATE AMINO TRANSFERASE 192 U/L (15-37); BILIRUBIN,TOTAL 2.7 MG/DL (0.2-1.0); BLOOD UREA NITROGEN 20 mg/dL (7-18); CALCIUM 8.7 MG/DL (8.5-10.1); CHLORIDE 98 MMOL/L (98-107); CREATININE 0.7 MG/DL (0.55-1.30); PHOSPHORUS 2.3 MG/DL (2.5-4.9); POTASSIUM 3.6 MMOL/L (3.5-5.1); SODIUM 144 MMOL/L (136-145)
[2020-03-25 05:39] LABS: BILIRUBIN,DIRECT 1.4 MG/DL (0.0-0.3)
[2020-03-25 05:52] LABS: CARBON DIOXIDE 41 MMOL/L (21-32)
[2020-03-25] MEDS: Levofloxacin 750mg tab NG SCH (09:00)
[2020-03-25] MEDS: Vancomycin 500 MG in NS 110 ML IVPB SCH ×2 (09:00→20:11)
[2020-03-25] MEDS: Lactulose 20gm/30ml UDC ORAL SCH ×3 (09:01→18:20)
[2020-03-25] MEDS: Solu-MEDROL 40mg Inj IVP SCH ×2 (09:01→20:09)
[2020-03-25] MEDS: Enoxaparin 100mg Inj SUBQ SCH ×2 (09:02→20:10)
[2020-03-25] MEDS: Levemir Flexpen SUBQ SCH (09:03)
[2020-03-25] MEDS ORDERED: Potassium Phosphate 20 MM in NS 275 ML IV ONE ×2 (11:00→12:30)
--- NOTE | 2020-03-25 12:13 | Nephrology Progress Note ---
Assessment/Plan Problem List: (1) Electrolyte imbalance Assessment: Hyponatremia resolved -hyperkalemia resolved (2) COVID-19 (3) Respiratory failure with hypoxia (4) Cellulitis (5) Hypothyroid Assessment Hyponatremia. Serum sodium started drifting down from March 16. Hyperkalemia. Septic shock. Acute respiratory failure. Respiratory failure and COVID pneumonia. History of cirrhosis/splenomegaly Anemia Bilateral lower extremity cellulitis Plan 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 per control room helper Taper steroids's deferred to assignment desk assistant Urine sodium is below 20 Serum ammonia is elevated will start lactulose Patient on Solu-Medrol and Solu-Cortef will discontinue Solu-Cortef Will try to gently diurese for severe edema meanwhile administering albumin 25% as needed Monitor electrolytes and renal parameters We will add midodrine 10 mg 3 times a day via NG tube Decrease dosage of IV Synthroid Discussed with DAO Starr Subjective ROS Limited/Unobtainable: Yes Objective Objective Last 24 Hour Vital Signs Date Time Temp Pulse Resp B/P (MAP) Pulse Ox O2 Delivery O2 Flow Rate FiO2 03/25/20 11:51 147/76 03/25/20 11:35 69 23 147/76 (99) 100 03/25/20 11:02 71 26 143/78 (99) 100 03/25/20 10:30 73 26 143/82 (102) 100 03/25/20 10:30 75 137/81 (99) 100 03/25/20 10:00 79 143/82 (102) 100 03/25/20 10:00 26 143/82 Endotracheal Tube 90 03/25/20 10:00 143/82 03/25/20 09:30 73 161/84 (109) 100 03/25/20 09:00 69 155/78 (103) 100 03/25/20 09:00 26 161/84 Endotracheal Tube 90 03/25/20 08:59 96/60 03/25/20 08:30 72 96/60 (72) 100 03/25/20 08:00 90 03/25/20 08:00 Mechanical Ventilator Mechanical Ventilator 03/25/20 08:00 26 96/60 Endotracheal Tube 90 03/25/20 08:00 96/60 03/25/20 08:00 98.7 73 126/68 (87) 100 03/25/20 07:34 70 03/25/20 07:12 63 26 90 03/25/20 07:00 70 148/71 (96) 100 03/25/20 06:30 73 169/82 (111) 100 03/25/20 06:30 26 169/82 Mechanical Ventilator 90 03/25/20 06:30 169/82 03/25/20 06:00 72 166/88 (114) 100 03/25/20 05:44 26 164/85 Mechanical Ventilator 90 03/25/20 05:44 164/85 03/25/20 05:30 78 164/85 (111) 100 03/25/20 05:00 76 162/82 (108) 99 03/25/20 04:30 70 127/67 (87) 98 03/25/20 04:19 26 127/67 Mechanical Ventilator 90 03/25/20 04:19 163/83 03/25/20 04:00 72 03/25/20 04:00 Mechanical Ventilator Mechanical Ventilator 03/25/20 04:00 90 03/25/20 04:00 99.0 73 163/83 (109) 96 03/25/20 03:30 76 166/80 (108) 97 03/25/20 03:09 75 28 90 03/25/20 03:00 26 166/80 Mechanical Ventilator 90 03/25/20 03:00 166/80 03/25/20 03:00 75 26 164/82 (109) 96 03/25/20 02:30 75 164/82 (109) 96 03/25/20 02:00 26 161/80 Mechanical Ventilator 90 03/25/20 02:00 161/80 03/25/20 02:00 75 162/83 (109) 96 03/25/20 01:30 74 162/79 (106) 96 03/25/20 01:00 96 158/85 (109) 92 03/25/20 01:00 26 162/79 Mechanical Ventilator 80 03/25/20 01:00 162/79 03/25/20 00:46 110/80 03/25/20 00:30 103 15 159/90 (113) 89 03/25/20 00:28 26 140/85 Mechanical Ventilator 80 03/25/20 00:00 90 03/25/20 00:00 Mechanical Ventilator Mechanical Ventilator 03/25/20 00:00 77 03/25/20 00:00 100.2 102 30 137/115 (122) 86 03/25/20 00:00 26 147/101 Mechanical Ventilator 80 03/25/20 00:00 147/101 03/24/20 23:30 96 25 138/114 (122) 89 03/24/20 23:22 102 27 60 03/24/20 23:00 25 111/93 Mechanical Ventilator 80 03/24/20 23:00 111/93 03/24/20 23:00 94 23 120/50 (73) 93 03/24/20 22:30 105 24 93/38 (56) 88 03/24/20 22:00 26 157/98 Mechanical Ventilator 80 03/24/20 22:00 157/98 03/24/20 22:00 80 03/24/20 22:00 89 18 146/91 (109) 95 03/24/20 21:57 76/49 03/24/20 21:30 63 26 176/90 (118) 91 03/24/20 21:00 26 177/86 Mechanical Ventilator 60 03/24/20 21:00 180/89 03/24/20 21:00 177/86 03/24/20 21:00 66 26 176/91 (119) 93 03/24/20 20:30 70 25 178/89 (118) 94 03/24/20 20:00 98.4 67 26 169/81 (110) 89 03/24/20 20:00 98 03/24/20 20:00 26 178/86 Mechanical Ventilator 60 03/24/20 20:00 178/86 03/24/20 20:00 Mechanical Ventilator Mechanical Ventilator 03/24/20 20:00 70 03/24/20 19:23 59 26 60 03/24/20 19:00 26 113/60 Mechanical Ventilator 60 03/24/20 19:00 113/60 03/24/20 18:45 60 26 54/24 (34) 95 03/24/20 18:30 26 Mechanical Ventilator 60 03/24/20 18:30 54/24 03/24/20 18:30 63 26 58/25 (36) 94 03/24/20 18:15 81 26 118/55 (76) 91 03/24/20 18:00 93 24 120/56 (77) 90 03/24/20 18:00 26 120/56 Mechanical Ventilator 60 03/24/20 18:00 26 Mechanical Ventilator 60 03/24/20 17:45 100 22 165/82 (109) 92 03/24/20 17:38 26 174/72 Mechanical Ventilator 60 03/24/20 17:30 26 165/82 Mechanical Ventilator 60 03/24/20 17:30 99 20 174/72 (106) 89 03/24/20 17:15 100 19 179/85 (116) 91 03/24/20 17:00 26 Mechanical Ventilator 60 03/24/20 17:00 26 166/88 Mechanical Ventilator 60 03/24/20 17:00 174/85 03/24/20 17:00 100 19 166/88 (114) 92 03/24/20 16:56 98 29 60 03/24/20 16:45 91 21 172/85 (114) 88 03/24/20 16:30 104 21 173/100 (124) 92 03/24/20 16:15 96 21 163/98 (119) 90 03/24/20 16:00 90 03/24/20 16:00 Mechanical Ventilator Mechanical Ventilator 03/24/20 16:00 26 Mechanical Ventilator 60 03/24/20 16:00 26 172/73 Mechanical Ventilator 60 03/24/20 16:00 172/73 03/24/20 16:00 99.5 103 18 173/87 (115) 90 03/24/20 15:53 60 03/24/20 15:45 101 25 172/73 (106) 92 03/24/20 15:30 105 21 123/63 (83) 93 03/24/20 15:15 102 21 172/75 (107) 86 03/24/20 15:02 99 29 60 03/24/20 15:00 106 18 153/70 (97) 03/24/20 15:00 26 Mechanical Ventilator 50 03/24/20 15:00 26 172/75 Mechanical Ventilator 50 03/24/20 15:00 172/75 03/24/20 14:45 106 18 155/73 (100) 03/24/20 14:30 106 21 170/77 (108) 03/24/20 14:15 107 18 157/64 (95) 03/24/20 14:00 106 18 154/86 (108) 98 03/24/20 14:00 26 Mechanical Ventilator 50 03/24/20 14:00 26 154/86 Mechanical Ventilator 50 03/24/20 14:00 154/86 03/24/20 13:45 106 19 168/73 (104) 82 03/24/20 13:30 107 22 152/80 (104) 94 03/24/20 13:15 107 18 131/68 (89) 97 03/24/20 13:02 111 32 50 03/24/20 13:00 26 Mechanical Ventilator 50 03/24/20 13:00 26 137/90 Mechanical Ventilator 50 03/24/20 13:00 152/80 03/24/20 13:00 106 23 137/90 (106) 97 03/24/20 12:45 107 29 150/74 (99) 95 03/24/20 12:30 110 18 132/80 (97) 97 03/24/20 12:29 26 Mechanical Ventilator 50 03/24/20 12:27 26 Mechanical Ventilator 50 03/24/20 12:27 129/76 03/24/20 12:26 150/74 03/24/20 12:15 110 18 129/76 (93) 97 Intake and Output 03/24/20 03/25/20 19:00 07:00 Intake Total 1684.9235 ml 1089.179 ml Output Total 2025 ml 1940 ml Balance -340.0765 ml -850.821 ml Free Water 140 ml 90 ml IV Total 1124.9235 ml 929.179 ml Tube Feeding 420 ml 70 ml Output Urine Total 1975 ml 1840 ml Stool Total 50 ml 100 ml Laboratory Tests 03/25/20 04:00: White Blood Count 21.1#H, Red Blood Count 2.90L, Hemoglobin 10.0L, Hematocrit 30.0L, Mean Corpuscular Volume 103H, Mean Corpuscular Hemoglobin 34.6H, Mean Corpuscular Hemoglobin Concent 33.4, Red Cell Distribution Width 19.3H, Platelet Count 187, Mean Platelet Volume 5.7L, Neutrophils (%) (Auto) , Lymphocytes (%) (Auto) , Monocytes (%) (Auto) , Eosinophils (%) (Auto) , Basophils (%) (Auto) , Differential Total Cells Counted 100, Neutrophils % ( Manual) 89H, Lymphocytes % (Manual) 3L, Monocytes % (Manual) 8, Eosinophils % ( Manual) 0, Basophils % (Manual) 0, Band Neutrophils 0, Platelet Estimate Adequate, Platelet Morphology Normal, Hypochromasia 1+, Anisocytosis 2+, Macrocytosis 1+, Sodium Level 144, Potassium Level 3.6, Chloride Level 98, Carbon Dioxide Level 41*H, Anion Gap 5, Blood Urea Nitrogen 20H, Creatinine 0.7 , Estimat Glomerular Filtration Rate > 60, Glucose Level 268H, Calcium Level 8.7 , Phosphorus Level 2.3L, Magnesium Level 2.1, Total Bilirubin 2.7H, Direct Bilirubin 1.4H, Aspartate Amino Transf (AST/SGOT) 192H, Alanine Aminotransferase (ALT/SGPT) 143H, Alkaline Phosphatase 297H, C-Reactive Protein , Quantitative 4.1H, Pro-B-Type Natriuretic Peptide 26890D, Total Protein 8.5H, Albumin 2.7L, Globulin 5.8, Albumin/Globulin Ratio 0.5L Height (Feet): 5 Height (Inches): 1.00 Weight (Pounds): 235 General Appearance: no apparent distress EENT: other Cardiovascular: normal rate Respiratory/Chest: decreased breath sounds Cristhian Granados MD March 25, 2020 12:13
--- NOTE | 2020-03-25 12:14 | Diagnostic Imaging Report ---
EXAM: XR Chest, 1 View CLINICAL HISTORY: INFECT TECHNIQUE: Frontal view of the chest. COMPARISON: Chest x-ray dated 03/20/20 FINDINGS: Lungs: Diffuse bilateral interstitial and airspace opacities, mildly improved compared to the prior exam. Pleural space: Unremarkable. The costophrenic angles are sharp. No visible pneumothorax. Heart: Unremarkable. No cardiomegaly. Mediastinum: Unremarkable. Bones/joints: Unremarkable. Vasculature: Atherosclerotic calcifications are noted within the aortic arch. Tubes, lines and devices: Stable positioning of endotracheal tube and left arm PICC. NG tube extends below the diaphragm and its tip is not visualized. Telemetry leads overlie the thorax. IMPRESSION: Diffuse bilateral interstitial and airspace opacities, mildly improved compared to the prior exam.
[2020-03-25] MEDS: fentaNYL Citrate 2,500 MCG in NS 200 ML IV SCH ×2 (12:30→22:06)
--- NOTE | 2020-03-25 12:32 | General Progress Note ---
Assessment/Plan Problem List: (1) Hypothyroid ICD Codes: E03.9 - Hypothyroidism, unspecified SNOMED: 44683296 (2) COVID-19 ICD Codes: U07.1 - COVID-19 SNOMED: 777678697 (3) Respiratory failure with hypoxia ICD Codes: J96.91 - Respiratory failure, unspecified with hypoxia SNOMED: [id number] Qualifiers: Qualified Codes: J96.01 - Acute respiratory failure with hypoxia (4) Cellulitis ICD Codes: L03.90 - Cellulitis, unspecified SNOMED: 036499373 Qualifiers: Qualified Codes: L03.119 - Cellulitis of unspecified part of limb (5) Hyperglycemia ICD Codes: R73.9 - Hyperglycemia, unspecified SNOMED: [id number] Status: progressing, unchanged Assessment/Plan: increase Levemir 14 to 20 units bid continue Novolog sliding scale every 6 hours continue Levothyroxine 50 mcg IV daily Subjective ROS Limited/Unobtainable: Yes Allergies: Coded Allergies: No Known Allergies (Unverified , 02/29/20) Subjective events noted - interval notes reviewed intubated in ICU - on pressors glucose values are still high Item Value Date Time Bedside Blood Glucose 255 mg/dl H 03/25/20 1147 Bedside Blood Glucose 251 mg/dl H 03/25/20 0903 Bedside Blood Glucose 291 mg/dl H 03/25/20 0600 Bedside Blood Glucose 271 mg/dl H 03/25/20 0013 Bedside Blood Glucose 259 mg/dl H 03/24/20 1800 Bedside Blood Glucose 225 mg/dl H 03/24/20 1259 Bedside Blood Glucose 212 mg/dl H 03/24/20 0907 Objective Last 24 Hour Vital Signs Date Time Temp Pulse Resp B/P (MAP) Pulse Ox O2 Delivery O2 Flow Rate FiO2 03/25/20 12:00 66 23 116/61 (79) 100 03/25/20 12:00 66 03/25/20 12:00 26 116/61 Endotracheal Tube 90 03/25/20 12:00 116/61 03/25/20 11:51 147/76 03/25/20 11:35 69 23 147/76 (99) 100 03/25/20 11:02 71 26 143/78 (99) 100 03/25/20 11:00 26 147/76 Endotracheal Tube 90 03/25/20 11:00 147/76 03/25/20 10:30 73 26 143/82 (102) 100 03/25/20 10:30 75 137/81 (99) 100 03/25/20 10:00 79 143/82 (102) 100 03/25/20 10:00 26 143/82 Endotracheal Tube 90 03/25/20 10:00 143/82 03/25/20 09:30 73 161/84 (109) 100 03/25/20 09:00 69 155/78 (103) 100 03/25/20 09:00 26 161/84 Endotracheal Tube 90 03/25/20 08:59 96/60 03/25/20 08:30 72 96/60 (72) 100 03/25/20 08:00 90 03/25/20 08:00 Mechanical Ventilator Mechanical Ventilator 03/25/20 08:00 26 96/60 Endotracheal Tube 90 03/25/20 08:00 96/60 03/25/20 08:00 98.7 73 126/68 (87) 100 03/25/20 07:34 70 03/25/20 07:12 63 26 90 03/25/20 07:00 70 148/71 (96) 100 03/25/20 06:30 73 169/82 (111) 100 03/25/20 06:30 26 169/82 Mechanical Ventilator 90 03/25/20 06:30 169/82 03/25/20 06:00 72 166/88 (114) 100 03/25/20 05:44 26 164/85 Mechanical Ventilator 90 03/25/20 05:44 164/85 03/25/20 05:30 78 164/85 (111) 100 03/25/20 05:00 76 162/82 (108) 99 03/25/20 04:30 70 127/67 (87) 98 03/25/20 04:19 26 127/67 Mechanical Ventilator 90 03/25/20 04:19 163/83 03/25/20 04:00 72 03/25/20 04:00 Mechanical Ventilator Mechanical Ventilator 03/25/20 04:00 90 03/25/20 04:00 99.0 73 163/83 (109) 96 03/25/20 03:30 76 166/80 (108) 97 03/25/20 03:09 75 28 90 5/9/20 03:00 26 166/80 Mechanical Ventilator 90 03/25/20 03:00 166/80 03/25/20 03:00 75 26 164/82 (109) 96 03/25/20 02:30 75 164/82 (109) 96 03/25/20 02:00 26 161/80 Mechanical Ventilator 90 03/25/20 02:00 161/80 03/25/20 02:00 75 162/83 (109) 96 03/25/20 01:30 74 162/79 (106) 96 03/25/20 01:00 96 158/85 (109) 92 03/25/20 01:00 26 162/79 Mechanical Ventilator 80 03/25/20 01:00 162/79 03/25/20 00:46 110/80 03/25/20 00:30 103 15 159/90 (113) 89 03/25/20 00:28 26 140/85 Mechanical Ventilator 80 03/25/20 00:00 90 03/25/20 00:00 Mechanical Ventilator Mechanical Ventilator 03/25/20 00:00 77 03/25/20 00:00 100.2 102 30 137/115 (122) 86 03/25/20 00:00 26 147/101 Mechanical Ventilator 80 03/25/20 00:00 147/101 03/24/20 23:30 96 25 138/114 (122) 89 03/24/20 23:22 102 27 60 03/24/20 23:00 25 111/93 Mechanical Ventilator 80 03/24/20 23:00 111/93 03/24/20 23:00 94 23 120/50 (73) 93 03/24/20 22:30 105 24 93/38 (56) 88 03/24/20 22:00 26 157/98 Mechanical Ventilator 80 03/24/20 22:00 157/98 03/24/20 22:00 80 03/24/20 22:00 89 18 146/91 (109) 95 03/24/20 21:57 76/49 03/24/20 21:30 63 26 176/90 (118) 91 03/24/20 21:00 26 177/86 Mechanical Ventilator 60 03/24/20 21:00 180/89 03/24/20 21:00 177/86 03/24/20 21:00 66 26 176/91 (119) 93 5/8/20 20:30 70 25 178/89 (118) 94 03/24/20 20:00 98.4 67 26 169/81 (110) 89 03/24/20 20:00 98 03/24/20 20:00 26 178/86 Mechanical Ventilator 60 03/24/20 20:00 178/86 03/24/20 20:00 Mechanical Ventilator Mechanical Ventilator 03/24/20 20:00 70 03/24/20 19:23 59 26 60 03/24/20 19:00 26 113/60 Mechanical Ventilator 60 03/24/20 19:00 113/60 03/24/20 18:45 60 26 54/24 (34) 95 03/24/20 18:30 26 Mechanical Ventilator 60 03/24/20 18:30 54/24 03/24/20 18:30 63 26 58/25 (36) 94 03/24/20 18:15 81 26 118/55 (76) 91 03/24/20 18:00 93 24 120/56 (77) 90 03/24/20 18:00 26 120/56 Mechanical Ventilator 60 03/24/20 18:00 26 Mechanical Ventilator 60 03/24/20 17:45 100 22 165/82 (109) 92 03/24/20 17:38 26 174/72 Mechanical Ventilator 60 03/24/20 17:30 26 165/82 Mechanical Ventilator 60 03/24/20 17:30 99 20 174/72 (106) 89 03/24/20 17:15 100 19 179/85 (116) 91 03/24/20 17:00 26 Mechanical Ventilator 60 03/24/20 17:00 26 166/88 Mechanical Ventilator 60 03/24/20 17:00 174/85 03/24/20 17:00 100 19 166/88 (114) 92 03/24/20 16:56 98 29 60 03/24/20 16:45 91 21 172/85 (114) 88 03/24/20 16:30 104 21 173/100 (124) 92 03/24/20 16:15 96 21 163/98 (119) 90 03/24/20 16:00 90 03/24/20 16:00 Mechanical Ventilator Mechanical Ventilator 03/24/20 16:00 26 Mechanical Ventilator 60 03/24/20 16:00 26 172/73 Mechanical Ventilator 60 03/24/20 16:00 172/73 03/24/20 16:00 99.5 103 18 173/87 (115) 90 03/24/20 15:53 60 03/24/20 15:45 101 25 172/73 (106) 92 03/24/20 15:30 105 21 123/63 (83) 93 03/24/20 15:15 102 21 172/75 (107) 86 03/24/20 15:02 99 29 60 03/24/20 15:00 106 18 153/70 (97) 03/24/20 15:00 26 Mechanical Ventilator 50 03/24/20 15:00 26 172/75 Mechanical Ventilator 50 03/24/20 15:00 172/75 03/24/20 14:45 106 18 155/73 (100) 03/24/20 14:30 106 21 170/77 (108) 03/24/20 14:15 107 18 157/64 (95) 03/24/20 14:00 106 18 154/86 (108) 98 03/24/20 14:00 26 Mechanical Ventilator 50 03/24/20 14:00 26 154/86 Mechanical Ventilator 50 03/24/20 14:00 154/86 03/24/20 13:45 106 19 168/73 (104) 82 03/24/20 13:30 107 22 152/80 (104) 94 03/24/20 13:15 107 18 131/68 (89) 97 03/24/20 13:02 111 32 50 03/24/20 13:00 26 Mechanical Ventilator 50 03/24/20 13:00 26 137/90 Mechanical Ventilator 50 03/24/20 13:00 152/80 03/24/20 13:00 106 23 137/90 (106) 97 03/24/20 12:45 107 29 150/74 (99) 95 Intake and Output 03/24/20 03/25/20 19:00 07:00 Intake Total 1684.9235 ml 1089.179 ml Output Total 2025 ml 1940 ml Balance -340.0765 ml -850.821 ml Free Water 140 ml 90 ml IV Total 1124.9235 ml 929.179 ml Tube Feeding 420 ml 70 ml Output Urine Total 1975 ml 1840 ml Stool Total 50 ml 100 ml Laboratory Tests 03/25/20 04:00: White Blood Count 21.1#H, Red Blood Count 2.90L, Hemoglobin 10.0L, Hematocrit 30.0L, Mean Corpuscular Volume 103H, Mean Corpuscular Hemoglobin 34.6H, Mean Corpuscular Hemoglobin Concent 33.4, Red Cell Distribution Width 19.3H, Platelet Count 187, Mean Platelet Volume 5.7L, Neutrophils (%) (Auto) , Lymphocytes (%) (Auto) , Monocytes (%) (Auto) , Eosinophils (%) (Auto) , Basophils (%) (Auto) , Differential Total Cells Counted 100, Neutrophils % ( Manual) 89H, Lymphocytes % (Manual) 3L, Monocytes % (Manual) 8, Eosinophils % ( Manual) 0, Basophils % (Manual) 0, Band Neutrophils 0, Platelet Estimate Adequate, Platelet Morphology Normal, Hypochromasia 1+, Anisocytosis 2+, Macrocytosis 1+, Sodium Level 144, Potassium Level 3.6, Chloride Level 98, Carbon Dioxide Level 41*H, Anion Gap 5, Blood Urea Nitrogen 20H, Creatinine 0.7 , Estimat Glomerular Filtration Rate > 60, Glucose Level 268H, Calcium Level 8.7 , Phosphorus Level 2.3L, Magnesium Level 2.1, Total Bilirubin 2.7H, Direct Bilirubin 1.4H, Aspartate Amino Transf (AST/SGOT) 192H, Alanine Aminotransferase (ALT/SGPT) 143H, Alkaline Phosphatase 297H, C-Reactive Protein , Quantitative 4.1H, Pro-B-Type Natriuretic Peptide 13850G, Total Protein 8.5H, Albumin 2.7L, Globulin 5.8, Albumin/Globulin Ratio 0.5L 03/25/20 11:54: Arterial Blood pH 7.500H, Arterial Blood Partial Pressure CO2 56.0*H, Arterial Blood Partial Pressure O2 234.9H, Arterial Blood HCO3 42.7*H, Arterial Blood Oxygen Saturation 99.2, Arterial Blood Base Excess 17.3*H, Joaquin Test Positive Height (Feet): 5 Height (Inches): 1.00 Weight (Pounds): 235 General Appearance: moderate distress Cardiovascular: tachycardia Respiratory/Chest: decreased breath sounds Abdomen: normal bowel sounds Objective Current Medications Medications (Trade) Dose Ordered Sig/Dolores Route PRN Reason Start Time Stop Time Status Last Admin Dose Admin Acetaminophen (Tylenol) 650 mg Q4H PRN ORAL Temp >100 03/13/20 14:53 04/12/20 14:52 03/19/20 06:25 Acetaminophen (Tylenol) 650 mg Q4H PRN ORAL Mild Pain (Pain Scale 1-3) 03/13/20 14:53 04/12/20 14:52 03/24/20 09:53 Atorvastatin Calcium (Lipitor) 20 mg BEDTIME ORAL 03/24/20 21:00 06/22/20 20:59 03/24/20 21:12 Chlorhexidine Gluconate (Lucretia-Hex 2%) 1 applic DAILY@2000 TOPIC 03/13/20 20:00 06/11/20 19:59 03/24/20 19:55 Dextrose (Dextrose 50%) 25 ml Q30M PRN IV Hypoglycemia 03/22/20 18:15 06/20/20 18:14 Dextrose (Dextrose 50%) 50 ml Q30M PRN IV Hypoglycemia 03/22/20 18:15 06/20/20 18:14 Dopamine HCl/ Dextrose 250 ml @ 0 mls/hr Q24H IV 03/16/20 19:30 06/14/20 19:29 03/25/20 11:51 Enoxaparin Sodium (Lovenox) 100 mg EVERY 12 HOURS SUBQ 03/23/20 21:00 06/21/20 20:59 03/25/20 09:02 Fentanyl Citrate 2500 mcg/Sodium Chloride 250 ml @ 0 mls/hr Q24H IV 03/24/20 12:30 03/31/20 12:29 03/24/20 12:29 Furosemide (Lasix) 20 mg EVERY 12 HOURS IV 03/22/20 21:00 04/21/20 20:59 03/25/20 09:02 Hydralazine HCl (Apresoline) 10 mg Q6H PRN IV For High Blood Pressure 03/24/20 16:45 06/22/20 16:44 Insulin Aspart (NovoLOG) Q6HR SUBQ 03/16/20 12:00 06/14/20 11:59 03/25/20 11:47 Insulin Detemir (Levemir) 14 units BID SUBQ 03/24/20 09:00 06/20/20 18:59 03/25/20 09:03 Lactulose (Cephulac) 15 gm TID ORAL 03/24/20 13:00 04/23/20 12:59 03/25/20 09:01 Levofloxacin (Levaquin) 750 mg DAILY NG 03/20/20 12:00 03/27/20 11:59 03/25/20 09:00 Levothyroxine Sodium (Synthroid) 50 mcg DAILY IV 03/21/20 09:00 04/17/20 11:59 03/25/20 09:00 Lorazepam (Ativan 2mg/ml 1ml) 1 mg Q4H PRN IV For Anxiety 03/24/20 16:45 03/31/20 16:44 03/25/20 00:46 Methylprednisolone Sodium Succinate (Solu-MEDROL) 30 mg EVERY 12 HOURS IVP 03/25/20 21:00 06/17/20 20:59 Metoclopramide HCl (Reglan) 5 mg Q6HR IVP 03/24/20 12:00 04/23/20 11:59 03/25/20 11:46 Midodrine (Pro-Amatine) 2.5 mg THREE TIMES A DAY PRN NG For BP 100 systolic and below 03/25/20 12:30 06/20/20 12:29 Mirtazapine (Remeron) 7.5 mg BEDTIME PRN ORAL SLEEP 03/13/20 14:55 06/11/20 14:54 Non-Formulary Medication (Non-Formulary Med) 1 ea DAILY IV 03/18/20 09:00 04/17/20 08:59 UNV Norepinephrine Bitartrate 16 mg/ Dextrose 500 ml @ 0 mls/hr Q24H IV 03/17/20 21:00 04/16/20 13:02 03/21/20 05:03 Potassium Phosphate 20 mm/ Sodium Chloride 281.6667 ml @ 46.944 m... ONCE ONCE IV 03/25/20 11:00 03/25/20 16:59 03/25/20 11:10 Potassium Phosphate 20 mm/ Sodium Chloride 281.6667 ml @ 46.944 m... ONCE ONCE IV 03/25/20 12:30 03/25/20 18:29 Potassium Chloride (K-Dur) 40 meq TWICE A DAY NG 03/24/20 18:00 06/21/20 09:29 03/25/20 09:00 Propofol 100 ml @ 0 mls/hr Q24H IV 03/24/20 17:32 03/26/20 17:31 03/25/20 05:44 Vancomycin HCl (Vanco rx to dose) 1 ea DAILY PRN MISC Per rx protocol 03/24/20 11:45 04/23/20 11:44 Vancomycin HCl 500 mg/Sodium Chloride 110 ml @ 110 mls/hr Q12HR IVPB 03/24/20 21:00 03/29/20 20:59 03/25/20 09:00 Vasopressin 100 units/Sodium Chloride 100 ml @ 0 mls/hr Q24H PRN IV For hypotension 03/16/20 11:00 04/15/20 10:59 03/19/20 18:03 Johan Christopher MD March 25, 2020 12:32
[2020-03-25] MEDS ORDERED: NS 275ml ONE ×4 (14:01→22:51)
[2020-03-25] MEDS ORDERED: Tubing IV Secondary IV ONE ×2 (14:01→17:44)
--- NOTE | 2020-03-25 16:44 | General Progress Note ---
Assessment/Plan Problem List: (1) Cellulitis ICD Codes: L03.90 - Cellulitis, unspecified SNOMED: 859993796 Qualifiers: Qualified Codes: L03.119 - Cellulitis of unspecified part of limb Status: progressing, unchanged Assessment/Plan: elevated co2 metabolic conctraction cellulitis lower extremity worsening leukocytosis elev LFT low k/borderline sepsis anemia.stable h/h cirrhosis elevated trop 0.4 Subjective ROS Limited/Unobtainable: Yes Allergies: Coded Allergies: No Known Allergies (Unverified , 02/29/20) Objective Last 24 Hour Vital Signs Date Time Temp Pulse Resp B/P (MAP) Pulse Ox O2 Delivery O2 Flow Rate FiO2 03/25/20 16:00 70 03/25/20 15:09 71 30 40 03/25/20 15:00 76 26 135/61 (85) 95 03/25/20 14:30 71 26 90/38 (55) 96 03/25/20 14:00 72 24 79/34 (49) 100 03/25/20 13:30 69 26 130/74 (92) 100 03/25/20 13:07 26 127/73 Endotracheal Tube 93.0 90 03/25/20 13:05 100.1 03/25/20 13:00 100.5 68 26 127/73 (91) 100 03/25/20 13:00 26 123/73 Endotracheal Tube 90 03/25/20 13:00 26 130/74 Endotracheal Tube 03/25/20 13:00 130/74 03/25/20 13:00 130/74 03/25/20 12:00 66 23 116/61 (79) 100 03/25/20 12:00 90 03/25/20 12:00 66 03/25/20 12:00 26 116/61 Endotracheal Tube 90 03/25/20 12:00 116/61 03/25/20 12:00 Mechanical Ventilator Mechanical Ventilator 03/25/20 11:51 147/76 03/25/20 11:35 69 23 147/76 (99) 100 03/25/20 11:23 71 31 90 03/25/20 11:02 71 26 143/78 (99) 100 03/25/20 11:00 26 147/76 Endotracheal Tube 90 03/25/20 11:00 147/76 03/25/20 10:30 73 26 143/82 (102) 100 03/25/20 10:30 75 137/81 (99) 100 03/25/20 10:00 79 143/82 (102) 100 03/25/20 10:00 26 143/82 Endotracheal Tube 90 03/25/20 10:00 143/82 03/25/20 09:30 73 161/84 (109) 100 03/25/20 09:00 69 155/78 (103) 100 03/25/20 09:00 26 161/84 Endotracheal Tube 90 03/25/20 08:59 96/60 03/25/20 08:30 72 96/60 (72) 100 03/25/20 08:00 90 03/25/20 08:00 Mechanical Ventilator Mechanical Ventilator 03/25/20 08:00 26 96/60 Endotracheal Tube 90 03/25/20 08:00 96/60 03/25/20 08:00 98.7 73 126/68 (87) 100 03/25/20 07:34 70 03/25/20 07:12 63 26 90 03/25/20 07:00 70 148/71 (96) 100 03/25/20 06:30 73 169/82 (111) 100 03/25/20 06:30 26 169/82 Mechanical Ventilator 90 03/25/20 06:30 169/82 03/25/20 06:00 72 166/88 (114) 100 03/25/20 05:44 26 164/85 Mechanical Ventilator 90 03/25/20 05:44 164/85 03/25/20 05:30 78 164/85 (111) 100 03/25/20 05:00 76 162/82 (108) 99 03/25/20 04:30 70 127/67 (87) 98 03/25/20 04:19 26 127/67 Mechanical Ventilator 90 03/25/20 04:19 163/83 03/25/20 04:00 72 03/25/20 04:00 Mechanical Ventilator Mechanical Ventilator 03/25/20 04:00 90 03/25/20 04:00 99.0 73 163/83 (109) 96 03/25/20 03:30 76 166/80 (108) 97 03/25/20 03:09 75 28 90 03/25/20 03:00 26 166/80 Mechanical Ventilator 90 03/25/20 03:00 166/80 03/25/20 03:00 75 26 164/82 (109) 96 03/25/20 02:30 75 164/82 (109) 96 03/25/20 02:00 26 161/80 Mechanical Ventilator 90 03/25/20 02:00 161/80 03/25/20 02:00 75 162/83 (109) 96 03/25/20 01:30 74 162/79 (106) 96 03/25/20 01:00 96 158/85 (109) 92 03/25/20 01:00 26 162/79 Mechanical Ventilator 80 03/25/20 01:00 162/79 03/25/20 00:46 110/80 03/25/20 00:30 103 15 159/90 (113) 89 03/25/20 00:28 26 140/85 Mechanical Ventilator 80 03/25/20 00:00 90 03/25/20 00:00 Mechanical Ventilator Mechanical Ventilator 03/25/20 00:00 77 03/25/20 00:00 100.2 102 30 137/115 (122) 86 03/25/20 00:00 26 147/101 Mechanical Ventilator 80 03/25/20 00:00 147/101 03/24/20 23:30 96 25 138/114 (122) 89 03/24/20 23:22 102 27 60 03/24/20 23:00 25 111/93 Mechanical Ventilator 80 03/24/20 23:00 111/93 03/24/20 23:00 94 23 120/50 (73) 93 03/24/20 22:30 105 24 93/38 (56) 88 03/24/20 22:00 26 157/98 Mechanical Ventilator 80 03/24/20 22:00 157/98 03/24/20 22:00 80 03/24/20 22:00 89 18 146/91 (109) 95 03/24/20 21:57 76/49 03/24/20 21:30 63 26 176/90 (118) 91 03/24/20 21:00 26 177/86 Mechanical Ventilator 60 03/24/20 21:00 180/89 03/24/20 21:00 177/86 03/24/20 21:00 66 26 176/91 (119) 93 03/24/20 20:30 70 25 178/89 (118) 94 03/24/20 20:00 98.4 67 26 169/81 (110) 89 03/24/20 20:00 98 03/24/20 20:00 26 178/86 Mechanical Ventilator 60 03/24/20 20:00 178/86 03/24/20 20:00 Mechanical Ventilator Mechanical Ventilator 03/24/20 20:00 70 03/24/20 19:23 59 26 60 03/24/20 19:00 26 113/60 Mechanical Ventilator 60 03/24/20 19:00 113/60 03/24/20 18:45 60 26 54/24 (34) 95 03/24/20 18:30 26 Mechanical Ventilator 60 03/24/20 18:30 54/24 03/24/20 18:30 63 26 58/25 (36) 94 03/24/20 18:15 81 26 118/55 (76) 91 03/24/20 18:00 93 24 120/56 (77) 90 03/24/20 18:00 26 120/56 Mechanical Ventilator 60 03/24/20 18:00 26 Mechanical Ventilator 60 03/24/20 17:45 100 22 165/82 (109) 92 03/24/20 17:38 26 174/72 Mechanical Ventilator 60 03/24/20 17:30 26 165/82 Mechanical Ventilator 60 03/24/20 17:30 99 20 174/72 (106) 89 03/24/20 17:15 100 19 179/85 (116) 91 03/24/20 17:00 26 Mechanical Ventilator 60 03/24/20 17:00 26 166/88 Mechanical Ventilator 60 03/24/20 17:00 174/85 03/24/20 17:00 100 19 166/88 (114) 92 03/24/20 16:56 98 29 60 03/24/20 16:45 91 21 172/85 (114) 88 Intake and Output 03/24/20 03/25/20 19:00 07:00 Intake Total 1684.9235 ml 1089.179 ml Output Total 2025 ml 1940 ml Balance -340.0765 ml -850.821 ml Free Water 140 ml 90 ml IV Total 1124.9235 ml 929.179 ml Tube Feeding 420 ml 70 ml Output Urine Total 1975 ml 1840 ml Stool Total 50 ml 100 ml Laboratory Tests 03/25/20 04:00: White Blood Count 21.1#H, Red Blood Count 2.90L, Hemoglobin 10.0L, Hematocrit 30.0L, Mean Corpuscular Volume 103H, Mean Corpuscular Hemoglobin 34.6H, Mean Corpuscular Hemoglobin Concent 33.4, Red Cell Distribution Width 19.3H, Platelet Count 187, Mean Platelet Volume 5.7L, Neutrophils (%) (Auto) , Lymphocytes (%) (Auto) , Monocytes (%) (Auto) , Eosinophils (%) (Auto) , Basophils (%) (Auto) , Differential Total Cells Counted 100, Neutrophils % ( Manual) 89H, Lymphocytes % (Manual) 3L, Monocytes % (Manual) 8, Eosinophils % ( Manual) 0, Basophils % (Manual) 0, Band Neutrophils 0, Platelet Estimate Adequate, Platelet Morphology Normal, Hypochromasia 1+, Anisocytosis 2+, Macrocytosis 1+, Sodium Level 144, Potassium Level 3.6, Chloride Level 98, Carbon Dioxide Level 41*H, Anion Gap 5, Blood Urea Nitrogen 20H, Creatinine 0.7 , Estimat Glomerular Filtration Rate > 60, Glucose Level 268H, Calcium Level 8.7 , Phosphorus Level 2.3L, Magnesium Level 2.1, Total Bilirubin 2.7H, Direct Bilirubin 1.4H, Aspartate Amino Transf (AST/SGOT) 192H, Alanine Aminotransferase (ALT/SGPT) 143H, Alkaline Phosphatase 297H, C-Reactive Protein , Quantitative 4.1H, Pro-B-Type Natriuretic Peptide 90707K, Total Protein 8.5H, Albumin 2.7L, Globulin 5.8, Albumin/Globulin Ratio 0.5L 03/25/20 11:54: Arterial Blood pH 7.500H, Arterial Blood Partial Pressure CO2 56.0*H, Arterial Blood Partial Pressure O2 234.9H, Arterial Blood HCO3 42.7*H, Arterial Blood Oxygen Saturation 99.2, Arterial Blood Base Excess 17.3*H, Joaquin Test Positive Height (Feet): 5 Height (Inches): 1.00 Weight (Pounds): 235 Celso Moreno MD March 25, 2020 16:44
--- NOTE | 2020-03-25 16:52 | GI Progress Note ---
Assessment/Plan Problems: (1) Macrocytic anemia ICD Codes: D53.9 - Nutritional anemia, unspecified SNOMED: [id number] (2) Respiratory distress ICD Codes: R06.03 - Acute respiratory distress SNOMED: 689898799 Status: unchanged Status Narrative Discussed with Dr. Spicer. Assessment/Plan macrocytic anemia elevated LFTS cirrhosis cellulitis elevated Ammonia levels respiratory distress>>> now failure COVID positive pna NGTF abd us>> reviewed fu stool ob>>>neg GI procedures if needed abx per id hepatitis panel>>>>>positive for hep C>>> needs out patient fu poor prognosis continue lactulose + Xifaxan reglan will fu The patient was seen and examined at bedside and all new and available data was reviewed in the patients chart. I agree with the above findings, impression and plan. (Patient seen earlier today. Signature stamp does not reflect patient encounter time.). - Tam Spicer MD Subjective Subjective limited Objective Last 24 Hour Vital Signs Date Time Temp Pulse Resp B/P (MAP) Pulse Ox O2 Delivery O2 Flow Rate FiO2 03/25/20 16:30 78 21 157/75 (102) 97 03/25/20 16:00 70 21 97/27 (50) 96 03/25/20 16:00 70 03/25/20 15:30 76 20 135/61 (85) 95 03/25/20 15:09 71 30 40 03/25/20 15:00 76 26 135/61 (85) 95 03/25/20 14:30 71 26 90/38 (55) 96 03/25/20 14:00 72 24 79/34 (49) 100 03/25/20 13:30 69 26 130/74 (92) 100 03/25/20 13:07 26 127/73 Endotracheal Tube 93.0 90 03/25/20 13:05 100.1 03/25/20 13:00 100.5 68 26 127/73 (91) 100 03/25/20 13:00 26 123/73 Endotracheal Tube 90 03/25/20 13:00 26 130/74 Endotracheal Tube 03/25/20 13:00 130/74 03/25/20 13:00 130/74 03/25/20 12:00 66 23 116/61 (79) 100 03/25/20 12:00 90 03/25/20 12:00 66 03/25/20 12:00 26 116/61 Endotracheal Tube 90 03/25/20 12:00 116/61 03/25/20 12:00 Mechanical Ventilator Mechanical Ventilator 03/25/20 11:51 147/76 03/25/20 11:35 69 23 147/76 (99) 100 03/25/20 11:23 71 31 90 03/25/20 11:02 71 26 143/78 (99) 100 03/25/20 11:00 26 147/76 Endotracheal Tube 90 03/25/20 11:00 147/76 03/25/20 10:30 73 26 143/82 (102) 100 03/25/20 10:30 75 137/81 (99) 100 03/25/20 10:00 79 143/82 (102) 100 03/25/20 10:00 26 143/82 Endotracheal Tube 90 03/25/20 10:00 143/82 03/25/20 09:30 73 161/84 (109) 100 03/25/20 09:00 69 155/78 (103) 100 03/25/20 09:00 26 161/84 Endotracheal Tube 90 03/25/20 08:59 96/60 03/25/20 08:30 72 96/60 (72) 100 03/25/20 08:00 90 03/25/20 08:00 Mechanical Ventilator Mechanical Ventilator 03/25/20 08:00 26 96/60 Endotracheal Tube 90 03/25/20 08:00 96/60 03/25/20 08:00 98.7 73 126/68 (87) 100 03/25/20 07:34 70 03/25/20 07:12 63 26 90 03/25/20 07:00 70 148/71 (96) 100 03/25/20 06:30 73 169/82 (111) 100 03/25/20 06:30 26 169/82 Mechanical Ventilator 90 03/25/20 06:30 169/82 03/25/20 06:00 72 166/88 (114) 100 03/25/20 05:44 26 164/85 Mechanical Ventilator 90 03/25/20 05:44 164/85 03/25/20 05:30 78 164/85 (111) 100 03/25/20 05:00 76 162/82 (108) 99 03/25/20 04:30 70 127/67 (87) 98 03/25/20 04:19 26 127/67 Mechanical Ventilator 90 03/25/20 04:19 163/83 03/25/20 04:00 72 03/25/20 04:00 Mechanical Ventilator Mechanical Ventilator 03/25/20 04:00 90 03/25/20 04:00 99.0 73 163/83 (109) 96 03/25/20 03:30 76 166/80 (108) 97 03/25/20 03:09 75 28 90 03/25/20 03:00 26 166/80 Mechanical Ventilator 90 03/25/20 03:00 166/80 03/25/20 03:00 75 26 164/82 (109) 96 03/25/20 02:30 75 164/82 (109) 96 03/25/20 02:00 26 161/80 Mechanical Ventilator 90 03/25/20 02:00 161/80 03/25/20 02:00 75 162/83 (109) 96 03/25/20 01:30 74 162/79 (106) 96 03/25/20 01:00 96 158/85 (109) 92 03/25/20 01:00 26 162/79 Mechanical Ventilator 80 03/25/20 01:00 162/79 03/25/20 00:46 110/80 03/25/20 00:30 103 15 159/90 (113) 89 03/25/20 00:28 26 140/85 Mechanical Ventilator 80 03/25/20 00:00 90 03/25/20 00:00 Mechanical Ventilator Mechanical Ventilator 03/25/20 00:00 77 03/25/20 00:00 100.2 102 30 137/115 (122) 86 03/25/20 00:00 26 147/101 Mechanical Ventilator 80 03/25/20 00:00 147/101 03/24/20 23:30 96 25 138/114 (122) 89 03/24/20 23:22 102 27 60 03/24/20 23:00 25 111/93 Mechanical Ventilator 80 03/24/20 23:00 111/93 03/24/20 23:00 94 23 120/50 (73) 93 03/24/20 22:30 105 24 93/38 (56) 88 03/24/20 22:00 26 157/98 Mechanical Ventilator 80 03/24/20 22:00 157/98 03/24/20 22:00 80 03/24/20 22:00 89 18 146/91 (109) 95 03/24/20 21:57 76/49 03/24/20 21:30 63 26 176/90 (118) 91 03/24/20 21:00 26 177/86 Mechanical Ventilator 60 03/24/20 21:00 180/89 03/24/20 21:00 177/86 03/24/20 21:00 66 26 176/91 (119) 93 03/24/20 20:30 70 25 178/89 (118) 94 03/24/20 20:00 98.4 67 26 169/81 (110) 89 03/24/20 20:00 98 03/24/20 20:00 26 178/86 Mechanical Ventilator 60 03/24/20 20:00 178/86 03/24/20 20:00 Mechanical Ventilator Mechanical Ventilator 03/24/20 20:00 70 03/24/20 19:23 59 26 60 03/24/20 19:00 26 113/60 Mechanical Ventilator 60 03/24/20 19:00 113/60 03/24/20 18:45 60 26 54/24 (34) 95 03/24/20 18:30 26 Mechanical Ventilator 60 03/24/20 18:30 54/24 03/24/20 18:30 63 26 58/25 (36) 94 03/24/20 18:15 81 26 118/55 (76) 91 03/24/20 18:00 93 24 120/56 (77) 90 03/24/20 18:00 26 120/56 Mechanical Ventilator 60 03/24/20 18:00 26 Mechanical Ventilator 60 03/24/20 17:45 100 22 165/82 (109) 92 03/24/20 17:38 26 174/72 Mechanical Ventilator 60 03/24/20 17:30 26 165/82 Mechanical Ventilator 60 03/24/20 17:30 99 20 174/72 (106) 89 03/24/20 17:15 100 19 179/85 (116) 91 03/24/20 17:00 26 Mechanical Ventilator 60 03/24/20 17:00 26 166/88 Mechanical Ventilator 60 03/24/20 17:00 174/85 03/24/20 17:00 100 19 166/88 (114) 92 03/24/20 16:56 98 29 60 Intake and Output 03/24/20 03/25/20 19:00 07:00 Intake Total 1684.9235 ml 1089.179 ml Output Total 2025 ml 1940 ml Balance -340.0765 ml -850.821 ml Free Water 140 ml 90 ml IV Total 1124.9235 ml 929.179 ml Tube Feeding 420 ml 70 ml Output Urine Total 1975 ml 1840 ml Stool Total 50 ml 100 ml Laboratory Tests Test 03/25/20 04:00 03/25/20 11:54 White Blood Count 21.1 K/UL (4.8-10.8) #H Red Blood Count 2.90 M/UL (4.20-5.40) L Hemoglobin 10.0 G/DL (12.0-16.0) L Hematocrit 30.0 % (37.0-47.0) L Mean Corpuscular Volume 103 FL (80-99) H Mean Corpuscular Hemoglobin 34.6 PG (27.0-31.0) H Mean Corpuscular Hemoglobin Concent 33.4 G/DL (32.0-36.0) Red Cell Distribution Width 19.3 % (11.6-14.8) H Platelet Count 187 K/UL (150-450) Mean Platelet Volume 5.7 FL (6.5-10.1) L Neutrophils (%) (Auto) % (45.0-75.0) Lymphocytes (%) (Auto) % (20.0-45.0) Monocytes (%) (Auto) % (1.0-10.0) Eosinophils (%) (Auto) % (0.0-3.0) Basophils (%) (Auto) % (0.0-2.0) Differential Total Cells Counted 100 Neutrophils % (Manual) 89 % (45-75) H Lymphocytes % (Manual) 3 % (20-45) L Monocytes % (Manual) 8 % (1-10) Eosinophils % (Manual) 0 % (0-3) Basophils % (Manual) 0 % (0-2) Band Neutrophils 0 % (0-8) Platelet Estimate Adequate Platelet Morphology Normal Hypochromasia 1+ Anisocytosis 2+ Macrocytosis 1+ Sodium Level 144 MMOL/L (136-145) Potassium Level 3.6 MMOL/L (3.5-5.1) Chloride Level 98 MMOL/L (98-107) Carbon Dioxide Level 41 MMOL/L (21-32) *H Anion Gap 5 mmol/L (5-15) Blood Urea Nitrogen 20 mg/dL (7-18) H Creatinine 0.7 MG/DL (0.55-1.30) Estimat Glomerular Filtration Rate > 60 mL/min (>60) Glucose Level 268 MG/DL (74-106) H Calcium Level 8.7 MG/DL (8.5-10.1) Phosphorus Level 2.3 MG/DL (2.5-4.9) L Magnesium Level 2.1 MG/DL (1.8-2.4) Total Bilirubin 2.7 MG/DL (0.2-1.0) H Direct Bilirubin 1.4 MG/DL (0.0-0.3) H Aspartate Amino Transf (AST/SGOT) 192 U/L (15-37) H Alanine Aminotransferase (ALT/SGPT) 143 U/L (12-78) H Alkaline Phosphatase 297 U/L (46-116) H C-Reactive Protein, Quantitative 4.1 mg/dL (0.00-0.90) H Pro-B-Type Natriuretic Peptide 10743 pg/mL (0-125) H Total Protein 8.5 G/DL (6.4-8.2) H Albumin 2.7 G/DL (3.4-5.0) L Globulin 5.8 g/dL Albumin/Globulin Ratio 0.5 (1.0-2.7) L Arterial Blood pH 7.500 (7.350-7.450) Arterial Blood Partial Pressure CO2 56.0 mmHg (35.0-45.0) *H Arterial Blood Partial Pressure O2 234.9 mmHg (75.0-100.0) H Arterial Blood HCO3 42.7 mmol/L (22.0-26.0) *H Arterial Blood Oxygen Saturation 99.2 % (95-100) Arterial Blood Base Excess 17.3 (-2-2) *H Joaquin Test Positive Height (Feet): 5 Height (Inches): 1.00 Weight (Pounds): 235 General Appearance: no apparent distress Cardiovascular: regular rhythm Respiratory/Chest: no respiratory distress Abdominal Exam: soft Kym Snow [employer] March 25, 2020 16:52
[2020-03-25] MEDS ORDERED: Sterile Water Irrig 1000ml IRRIG ONE ×2 (17:43→17:44)
[2020-03-25] MEDS ORDERED: NS 500ML ONE (17:44)
[2020-03-25] MEDS ORDERED: D5W 550ml IV ONE (17:44)
[2020-03-25] MEDS ORDERED: NS Irrig 1000ml ONE (17:44)
[2020-03-25] MEDS ORDERED: Levemir Flexpen SUBQ SCH (18:00)
[2020-03-25] MEDS: Dyna-Hex 2% Top Sol 2oz TOPIC SCH (20:08)
[2020-03-25] MEDS: Atorvastatin 20mg tab ORAL SCH (20:10)
--- NOTE | 2020-03-25 20:26 | Surgery Progress Note ---
Surgery Progress Note Subjective Additional Comments off dopa ill appearing non responsive Objective Last 24 Hour Vital Signs Date Time Temp Pulse Resp B/P (MAP) Pulse Ox O2 Delivery O2 Flow Rate FiO2 03/25/20 20:11 147/77 03/25/20 19:17 57 28 100 Mechanical Ventilator 40 03/25/20 19:16 57 28 40 03/25/20 19:00 20 147/77 Endotracheal Tube 40 03/25/20 19:00 147/77 03/25/20 19:00 56 28 147/77 (100) 97 03/25/20 18:45 58 153/66 (95) 99 03/25/20 18:30 58 12 139/69 (92) 98 03/25/20 18:15 61 20 138/71 (93) 98 03/25/20 18:00 62 21 137/70 (92) 99 03/25/20 18:00 20 138/68 Endotracheal Tube 40 03/25/20 18:00 138/68 03/25/20 17:46 99.8 03/25/20 17:30 61 21 138/68 (91) 98 03/25/20 17:29 122/67 03/25/20 17:00 100.9 76 28 122/67 (85) 100 03/25/20 17:00 20 122/67 Endotracheal Tube 40 03/25/20 16:30 78 21 157/75 (102) 97 03/25/20 16:00 40 03/25/20 16:00 20 111/53 Endotracheal Tube 40 03/25/20 16:00 Mechanical Ventilator Mechanical Ventilator 03/25/20 16:00 70 21 97/27 (50) 96 03/25/20 16:00 70 03/25/20 15:30 76 20 135/61 (85) 95 03/25/20 15:09 71 30 40 03/25/20 15:00 21 135/61 Endotracheal Tube 40 03/25/20 15:00 135/61 03/25/20 15:00 76 26 135/61 (85) 95 03/25/20 14:30 71 26 90/38 (55) 96 03/25/20 14:00 72 24 79/34 (49) 100 03/25/20 14:00 28 79/34 Endotracheal Tube 40 03/25/20 14:00 79/34 03/25/20 13:30 69 26 130/74 (92) 100 03/25/20 13:07 26 127/73 Endotracheal Tube 93.0 90 03/25/20 13:05 100.1 03/25/20 13:00 100.5 68 26 127/73 (91) 100 03/25/20 13:00 26 123/73 Endotracheal Tube 90 03/25/20 13:00 26 130/74 Endotracheal Tube 03/25/20 13:00 130/74 03/25/20 13:00 130/74 03/25/20 12:00 66 23 116/61 (79) 100 03/25/20 12:00 90 03/25/20 12:00 66 03/25/20 12:00 26 116/61 Endotracheal Tube 90 03/25/20 12:00 116/61 03/25/20 12:00 Mechanical Ventilator Mechanical Ventilator 03/25/20 11:51 147/76 03/25/20 11:35 69 23 147/76 (99) 100 03/25/20 11:23 71 31 90 03/25/20 11:02 71 26 143/78 (99) 100 03/25/20 11:00 26 147/76 Endotracheal Tube 90 03/25/20 11:00 147/76 03/25/20 10:30 73 26 143/82 (102) 100 03/25/20 10:30 75 137/81 (99) 100 03/25/20 10:00 79 143/82 (102) 100 03/25/20 10:00 26 143/82 Endotracheal Tube 90 03/25/20 10:00 143/82 03/25/20 09:30 73 161/84 (109) 100 03/25/20 09:00 69 155/78 (103) 100 03/25/20 09:00 26 161/84 Endotracheal Tube 90 03/25/20 08:59 96/60 03/25/20 08:30 72 96/60 (72) 100 03/25/20 08:00 90 03/25/20 08:00 Mechanical Ventilator Mechanical Ventilator 03/25/20 08:00 26 96/60 Endotracheal Tube 90 03/25/20 08:00 96/60 03/25/20 08:00 98.7 73 126/68 (87) 100 03/25/20 07:34 70 03/25/20 07:12 63 26 90 03/25/20 07:00 70 148/71 (96) 100 03/25/20 06:30 73 169/82 (111) 100 03/25/20 06:30 26 169/82 Mechanical Ventilator 90 03/25/20 06:30 169/82 03/25/20 06:00 72 166/88 (114) 100 03/25/20 05:44 26 164/85 Mechanical Ventilator 90 03/25/20 05:44 164/85 03/25/20 05:30 78 164/85 (111) 100 03/25/20 05:00 76 162/82 (108) 99 03/25/20 04:30 70 127/67 (87) 98 03/25/20 04:19 26 127/67 Mechanical Ventilator 90 03/25/20 04:19 163/83 03/25/20 04:00 72 03/25/20 04:00 Mechanical Ventilator Mechanical Ventilator 03/25/20 04:00 90 03/25/20 04:00 99.0 73 163/83 (109) 96 03/25/20 03:30 76 166/80 (108) 97 03/25/20 03:09 75 28 90 03/25/20 03:00 26 166/80 Mechanical Ventilator 90 03/25/20 03:00 166/80 03/25/20 03:00 75 26 164/82 (109) 96 03/25/20 02:30 75 164/82 (109) 96 03/25/20 02:00 26 161/80 Mechanical Ventilator 90 03/25/20 02:00 161/80 03/25/20 02:00 75 162/83 (109) 96 03/25/20 01:30 74 162/79 (106) 96 03/25/20 01:00 96 158/85 (109) 92 03/25/20 01:00 26 162/79 Mechanical Ventilator 80 03/25/20 01:00 162/79 03/25/20 00:46 110/80 03/25/20 00:30 103 15 159/90 (113) 89 03/25/20 00:28 26 140/85 Mechanical Ventilator 80 03/25/20 00:00 90 03/25/20 00:00 Mechanical Ventilator Mechanical Ventilator 03/25/20 00:00 77 03/25/20 00:00 100.2 102 30 137/115 (122) 86 03/25/20 00:00 26 147/101 Mechanical Ventilator 80 03/25/20 00:00 147/101 03/24/20 23:30 96 25 138/114 (122) 89 03/24/20 23:22 102 27 60 03/24/20 23:00 25 111/93 Mechanical Ventilator 80 03/24/20 23:00 111/93 03/24/20 23:00 94 23 120/50 (73) 93 03/24/20 22:30 105 24 93/38 (56) 88 03/24/20 22:00 26 157/98 Mechanical Ventilator 80 03/24/20 22:00 157/98 03/24/20 22:00 80 03/24/20 22:00 89 18 146/91 (109) 95 03/24/20 21:57 76/49 03/24/20 21:30 63 26 176/90 (118) 91 03/24/20 21:00 26 177/86 Mechanical Ventilator 60 03/24/20 21:00 180/89 03/24/20 21:00 177/86 03/24/20 21:00 66 26 176/91 (119) 93 03/24/20 20:30 70 25 178/89 (118) 94 I&O Intake and Output 03/24/20 03/25/20 19:00 07:00 Intake Total 1684.9235 ml 1089.179 ml Output Total 2025 ml 1940 ml Balance -340.0765 ml -850.821 ml Free Water 140 ml 90 ml IV Total 1124.9235 ml 929.179 ml Tube Feeding 420 ml 70 ml Output Urine Total 1975 ml 1840 ml Stool Total 50 ml 100 ml Dressing: dry Cardiovascular: RSR Respiratory: decreased breath sounds Abdomen: soft, present bowel sounds Extremities: edema, no cyanosis Laboratory Tests Test 03/25/20 04:00 03/25/20 11:54 White Blood Count 21.1 K/UL (4.8-10.8) #H Red Blood Count 2.90 M/UL (4.20-5.40) L Hemoglobin 10.0 G/DL (12.0-16.0) L Hematocrit 30.0 % (37.0-47.0) L Mean Corpuscular Volume 103 FL (80-99) H Mean Corpuscular Hemoglobin 34.6 PG (27.0-31.0) H Mean Corpuscular Hemoglobin Concent 33.4 G/DL (32.0-36.0) Red Cell Distribution Width 19.3 % (11.6-14.8) H Platelet Count 187 K/UL (150-450) Mean Platelet Volume 5.7 FL (6.5-10.1) L Neutrophils (%) (Auto) % (45.0-75.0) Lymphocytes (%) (Auto) % (20.0-45.0) Monocytes (%) (Auto) % (1.0-10.0) Eosinophils (%) (Auto) % (0.0-3.0) Basophils (%) (Auto) % (0.0-2.0) Differential Total Cells Counted 100 Neutrophils % (Manual) 89 % (45-75) H Lymphocytes % (Manual) 3 % (20-45) L Monocytes % (Manual) 8 % (1-10) Eosinophils % (Manual) 0 % (0-3) Basophils % (Manual) 0 % (0-2) Band Neutrophils 0 % (0-8) Platelet Estimate Adequate Platelet Morphology Normal Hypochromasia 1+ Anisocytosis 2+ Macrocytosis 1+ Sodium Level 144 MMOL/L (136-145) Potassium Level 3.6 MMOL/L (3.5-5.1) Chloride Level 98 MMOL/L (98-107) Carbon Dioxide Level 41 MMOL/L (21-32) *H Anion Gap 5 mmol/L (5-15) Blood Urea Nitrogen 20 mg/dL (7-18) H Creatinine 0.7 MG/DL (0.55-1.30) Estimat Glomerular Filtration Rate > 60 mL/min (>60) Glucose Level 268 MG/DL (74-106) H Calcium Level 8.7 MG/DL (8.5-10.1) Phosphorus Level 2.3 MG/DL (2.5-4.9) L Magnesium Level 2.1 MG/DL (1.8-2.4) Total Bilirubin 2.7 MG/DL (0.2-1.0) H Direct Bilirubin 1.4 MG/DL (0.0-0.3) H Aspartate Amino Transf (AST/SGOT) 192 U/L (15-37) H Alanine Aminotransferase (ALT/SGPT) 143 U/L (12-78) H Alkaline Phosphatase 297 U/L (46-116) H C-Reactive Protein, Quantitative 4.1 mg/dL (0.00-0.90) H Pro-B-Type Natriuretic Peptide 33945 pg/mL (0-125) H Total Protein 8.5 G/DL (6.4-8.2) H Albumin 2.7 G/DL (3.4-5.0) L Globulin 5.8 g/dL Albumin/Globulin Ratio 0.5 (1.0-2.7) L Arterial Blood pH 7.500 (7.350-7.450) Arterial Blood Partial Pressure CO2 56.0 mmHg (35.0-45.0) *H Arterial Blood Partial Pressure O2 234.9 mmHg (75.0-100.0) H Arterial Blood HCO3 42.7 mmol/L (22.0-26.0) *H Arterial Blood Oxygen Saturation 99.2 % (95-100) Arterial Blood Base Excess 17.3 (-2-2) *H Joaquin Test Positive Plan Problems: (1) Cellulitis Assessment & Plan: bilateral lower extremity cellulitis / edema chronic venous status changes dermatitis no abscess no purulent drainage ulcerations forming. keep lower extremity elevated while in bed apply skin protectant / moisturizing cream daily okay to shower okay to wrap soft after cream abx as per ID for cellulitis okay for diet duplex ordered trend labs will follow with recs thank you No evidence of deep venous thrombosis involving the visualized veins of the RIGHT lower extremity. refused eval of left COVID ++ cxr noted cont current supportive care improving labs stable improving slowly wean pressors as tolerated Patient is acutely worsened intubated on vent support 2 pressors now worsening labs worsening Prognosis is guarded we will continue with maximal support efforts weaning vent weaning pressors leukocytosis trend lft's (2) COVID-19 Assessment & Plan: see above Theron Sotomayor March 25, 2020 20:26
[2020-03-26] VITALS (56 sets, daily range): BP systolic 67–141; BP diastolic 40–84
--- NOTE | 2020-03-26 00:30 | Pulmonolgy Critical Care Note ---
Critical Care - Asmt/Plan Assessment/Plan: Pulmonary CCM Progress Note HPI Patient is a 59 year old woman with significant obesity, admitted with bilateral lower extremity cellulitis, had complained of increased swelling and redness to both of her feet and legs Had elevated BNP on admission, persistent edema since admission, worsening hypoxia, LE DVT (right) negative for DVT. Patient had previous hospitalizations for cellulitis, PMH Hypothyroidism, Obesity, Cirrhosis, Anemia, Anxiety, Cellulitis COVID 19 positive, Pneumonia VQ no significant perfusion abnormality, prev LE dupplex negative High D Dimer level, on Lovenox treatment dose Being diuresed, slightly inproving infiltrates on CXR, on ACVC, no tolerating Proning Some improvement in PaO2/FIO2, VC settings adjusted, P 12, FIO2 40% Hyponatremia improving, renal following Hypothyroidism Awaiting Remdasovir, [facility] - Remdesavir requested for when available, [facility] - not available as yet Received IL6 inhibitor inititial dose (4mg/Kg - all that was available), subsequent dose pending, d/w Pharmacy, on steroids - being weaned 30 mg bid On therapeutic dose Lovenox - incr D dimer Seen earlier on 03/25/2020 Allergies: No Known Allergies Past Medical History: Obesity, Cirrhosis, Anemia, Anxiety, Cellulitis, Hypothyroidism All Other Systems: negative except mentioned in HPI Physical Exam Vital Signs Noted General Appearance: Obese, Sedated,intubated Head: normocephalic, atraumatic Eyes: bilateral eye PERRL, bilateral eye EOMI ENT: EOM grossly intact, moist MM, no LN Respiratory: Bilateral crackles, bilateral rhonchi Cardiovascular: regular rate, rhythm, HS1, HS2 RRR Gastrointestinal: Obese, soft non tender, ND Musculoskeletal: Mild to moderate edema and erythema bilateral lower extremity , patient also has crusting on both feet, Neurologic: sedated, no focalsigns Impression: Covid Pneumonia, s/p IL6 inhibitor, sp Hydroxychloroquine, Ivermectin Improving infiltrates and hypoxia, elevated PCO2 Increased WCC - possible secondary to steroids Bilateral Lower Extremity Cellulitis Elevated NPA, severe bilateral edema - improving Cirrhosis Splenomegaly Anemia Anxiety Hyponatremia Hypothyroidism Plan IV Antibiotics per ID On trial of steroids - currently 30 mg bid, s/p IL6 inhibitor Diurese as tolerated, note persistently elevated BNP Surgery following for wounds Hematology following for anemia, observing for Neutropenia/thrombocytopenia Diurese PRN Renal following for hyponatremia Endocrine following for Hypothyroidism, on ISS Monitor labs Bronchodilators PPX - Lovenox - therapeutic dose AC VC Proning PRN 3% saline PRN per renal PRN Supplement electrolytes PRN Albuterol PRN 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 Previously Patients daughter Tri - discussed grave prognosis, suggested DNAR - will consider [facility] - Remdesavir ordered, awaiting supply, awaiting next dose on IL6 inhibitor once supply available Labs Noted Chest X-Ray: Cardiomegaly, left lower lobe atelectasis versus effusion, worsening infiltrates/congestion Subjective ROS Limited/Unobtainable: No Constitutional: Reports: no symptoms Gastrointestinal/Abdominal: Reports: no symptoms Musculoskeletal: Reports: other - SOB Allergies: Coded Allergies: No Known Allergies (Unverified , 02/29/20) ICU time 50 minutes Critical Care - Objective Last 24 Hour Vital Signs Date Time Temp Pulse Resp B/P (MAP) Pulse Ox O2 Delivery O2 Flow Rate FiO2 03/25/20 23:15 74 24 113/54 (73) 100 03/25/20 23:00 64 24 110/57 (74) 100 03/25/20 23:00 24 Mechanical Ventilator 40 03/25/20 23:00 132/62 03/25/20 22:52 62 26 40 03/25/20 22:30 62 24 106/47 (66) 100 03/25/20 22:15 61 24 101/50 (67) 100 03/25/20 22:06 24 Mechanical Ventilator 40 03/25/20 22:00 98.1 60 24 102/50 (67) 97 03/25/20 22:00 99/49 03/25/20 21:45 58 24 102/56 (71) 97 03/25/20 21:30 59 24 109/59 (76) 97 03/25/20 21:15 77 24 106/53 (70) 95 03/25/20 21:00 76 24 95/52 (66) 93 03/25/20 21:00 104/59 03/25/20 20:45 69 24 96/49 (65) 95 03/25/20 20:30 63 24 97/49 (65) 98 03/25/20 20:15 58 24 128/71 (90) 98 03/25/20 20:11 147/77 03/25/20 20:00 61 03/25/20 20:00 40 03/25/20 20:00 97.3 62 24 163/84 (110) 98 03/25/20 20:00 Mechanical Ventilator Mechanical Ventilator 03/25/20 19:45 56 24 172/91 (118) 97 03/25/20 19:34 49 24 132/63 (86) 96 03/25/20 19:30 62 24 74/34 (47) 96 03/25/20 19:17 57 28 100 Mechanical Ventilator 40 03/25/20 19:16 57 28 40 03/25/20 19:15 76 24 86/45 (59) 98 03/25/20 19:00 20 147/77 Endotracheal Tube 40 03/25/20 19:00 147/77 03/25/20 19:00 56 28 147/77 (100) 97 03/25/20 18:45 58 153/66 (95) 99 03/25/20 18:30 58 12 139/69 (92) 98 03/25/20 18:15 61 20 138/71 (93) 98 03/25/20 18:00 62 21 137/70 (92) 99 03/25/20 18:00 20 138/68 Endotracheal Tube 40 03/25/20 18:00 138/68 03/25/20 17:46 99.8 03/25/20 17:30 61 21 138/68 (91) 98 03/25/20 17:29 122/67 03/25/20 17:00 100.9 76 28 122/67 (85) 100 03/25/20 17:00 20 122/67 Endotracheal Tube 40 03/25/20 16:30 78 21 157/75 (102) 97 03/25/20 16:00 40 03/25/20 16:00 20 111/53 Endotracheal Tube 40 03/25/20 16:00 Mechanical Ventilator Mechanical Ventilator 03/25/20 16:00 70 21 97/27 (50) 96 03/25/20 16:00 70 03/25/20 15:30 76 20 135/61 (85) 95 03/25/20 15:09 71 30 40 03/25/20 15:00 21 135/61 Endotracheal Tube 40 03/25/20 15:00 135/61 03/25/20 15:00 76 26 135/61 (85) 95 03/25/20 14:30 71 26 90/38 (55) 96 03/25/20 14:00 72 24 79/34 (49) 100 03/25/20 14:00 28 79/34 Endotracheal Tube 40 03/25/20 14:00 79/34 03/25/20 13:30 69 26 130/74 (92) 100 03/25/20 13:07 26 127/73 Endotracheal Tube 93.0 90 03/25/20 13:05 100.1 03/25/20 13:00 100.5 68 26 127/73 (91) 100 03/25/20 13:00 26 123/73 Endotracheal Tube 90 03/25/20 13:00 26 130/74 Endotracheal Tube 03/25/20 13:00 130/74 03/25/20 13:00 130/74 03/25/20 12:00 66 23 116/61 (79) 100 03/25/20 12:00 90 03/25/20 12:00 66 03/25/20 12:00 26 116/61 Endotracheal Tube 90 03/25/20 12:00 116/61 03/25/20 12:00 Mechanical Ventilator Mechanical Ventilator 03/25/20 11:51 147/76 03/25/20 11:35 69 23 147/76 (99) 100 03/25/20 11:23 71 31 90 03/25/20 11:02 71 26 143/78 (99) 100 03/25/20 11:00 26 147/76 Endotracheal Tube 90 03/25/20 11:00 147/76 03/25/20 10:30 73 26 143/82 (102) 100 03/25/20 10:30 75 137/81 (99) 100 03/25/20 10:00 79 143/82 (102) 100 03/25/20 10:00 26 143/82 Endotracheal Tube 90 03/25/20 10:00 143/82 03/25/20 09:30 73 161/84 (109) 100 03/25/20 09:00 69 155/78 (103) 100 03/25/20 09:00 26 161/84 Endotracheal Tube 90 03/25/20 08:59 96/60 03/25/20 08:30 72 96/60 (72) 100 03/25/20 08:00 90 03/25/20 08:00 Mechanical Ventilator Mechanical Ventilator 03/25/20 08:00 26 96/60 Endotracheal Tube 90 03/25/20 08:00 96/60 03/25/20 08:00 98.7 73 126/68 (87) 100 03/25/20 07:34 70 03/25/20 07:12 63 26 90 03/25/20 07:00 70 148/71 (96) 100 03/25/20 06:30 73 169/82 (111) 100 03/25/20 06:30 26 169/82 Mechanical Ventilator 90 03/25/20 06:30 169/82 03/25/20 06:00 72 166/88 (114) 100 03/25/20 05:44 26 164/85 Mechanical Ventilator 90 03/25/20 05:44 164/85 03/25/20 05:30 78 164/85 (111) 100 03/25/20 05:00 76 162/82 (108) 99 03/25/20 04:30 70 127/67 (87) 98 03/25/20 04:19 26 127/67 Mechanical Ventilator 90 03/25/20 04:19 163/83 03/25/20 04:00 72 03/25/20 04:00 Mechanical Ventilator Mechanical Ventilator 03/25/20 04:00 90 03/25/20 04:00 99.0 73 163/83 (109) 96 03/25/20 03:30 76 166/80 (108) 97 03/25/20 03:09 75 28 90 03/25/20 03:00 26 166/80 Mechanical Ventilator 90 03/25/20 03:00 166/80 03/25/20 03:00 75 26 164/82 (109) 96 03/25/20 02:30 75 164/82 (109) 96 03/25/20 02:00 26 161/80 Mechanical Ventilator 90 03/25/20 02:00 161/80 03/25/20 02:00 75 162/83 (109) 96 03/25/20 01:30 74 162/79 (106) 96 03/25/20 01:00 96 158/85 (109) 92 03/25/20 01:00 26 162/79 Mechanical Ventilator 80 03/25/20 01:00 162/79 03/25/20 00:46 110/80 03/25/20 00:30 103 15 159/90 (113) 89 03/25/20 00:28 26 140/85 Mechanical Ventilator 80 Accucheck: 233 Critical Care - Subjective ROS Limited/Unobtainable: No Condition: improving IV Access: PICC EKG Rhythm: Sinus Rhythm FI02: 40 Vent Support Breath Rate: 24 Vent Support Mode: AC Vent Tidal Volume: 400 Sputum Amount: Small PEEP: 12.0 PIP: 30 Tube Feeding Amount: 35 I&O: Intake and Output 03/25/20 03/26/20 19:00 07:00 Intake Total 1442.140 ml 417.568 ml Output Total 2325 ml 650 ml Balance -882.860 ml -232.432 ml Free Water 60 ml IV Total 1022.140 ml 217.568 ml Tube Feeding 420 ml 140 ml Output Urine Total 2225 ml 650 ml Stool Total 100 ml ET-Tube: 7.5 ET Position: 21 Doron Carrillo MD March 26, 2020 00:30
[2020-03-26] MEDS: DOPamine 400mg/250ml 250 ML IV SCH ×4 (04:38→23:00)
[2020-03-26 06:05] LABS: HEMATOCRIT 29.1 % (37.0-47.0); HEMOGLOBIN 9.5 G/DL (12.0-16.0); MEAN CORPUSCULAR VOLUME 104 FL (80-99); PLATELET COUNT 166 K/UL (150-450); RED BLOOD COUNT 2.79 M/UL (4.20-5.40); RED CELL DISTRIBUTION WIDTH 19.7 % (11.6-14.8); WHITE BLOOD COUNT 14.6 K/UL (4.8-10.8)
[2020-03-26] MEDS: Metoclopramide 10mg/2ml Inj IVP SCH ×4 (06:45→23:04)
[2020-03-26] MEDS: NovoLOG Insulin Flexpen SUBQ SCH ×5 (06:45→20:13)
[2020-03-26 06:54] LABS: ALANINE AMINOTRANSFERASE 161 U/L (12-78); ALBUMIN 2.4 G/DL (3.4-5.0); ALBUMIN/GLOBULIN RATIO 0.5 (1.0-2.7); ALKALINE PHOSPHATASE 223 U/L (46-116); ASPARTATE AMINO TRANSFERASE 203 U/L (15-37); BILIRUBIN,TOTAL 2.6 MG/DL (0.2-1.0); BLOOD UREA NITROGEN 25 mg/dL (7-18); CALCIUM 8.7 MG/DL (8.5-10.1); CHLORIDE 109 MMOL/L (98-107); CREATININE 0.8 MG/DL (0.55-1.30); PHOSPHORUS 3.3 MG/DL (2.5-4.9); POTASSIUM 4.5 MMOL/L (3.5-5.1); SODIUM 154 MMOL/L (136-145)
[2020-03-26 06:56] LABS: CARBON DIOXIDE > 45 MMOL/L (21-32)
[2020-03-26 06:57] LABS: BILIRUBIN,DIRECT 1.6 MG/DL (0.0-0.3)
--- NOTE | 2020-03-26 08:34 | General Progress Note ---
Assessment/Plan Problem List: (1) Hypothyroid ICD Codes: E03.9 - Hypothyroidism, unspecified SNOMED: 30916373 (2) COVID-19 ICD Codes: U07.1 - COVID-19 SNOMED: 597142257 (3) Respiratory failure with hypoxia ICD Codes: J96.91 - Respiratory failure, unspecified with hypoxia SNOMED: 54297970006237714 Qualifiers: Qualified Codes: J96.01 - Acute respiratory failure with hypoxia (4) Cellulitis ICD Codes: L03.90 - Cellulitis, unspecified SNOMED: 348398712 Qualifiers: Qualified Codes: L03.119 - Cellulitis of unspecified part of limb (5) Hyperglycemia ICD Codes: R73.9 - Hyperglycemia, unspecified SNOMED: 35665814 Status: unchanged Assessment/Plan: increase Levemir 20 to 24 units bid change Novolog sliding scale every 6 to every 4 hours and increase dosage continue Levothyroxine 50 mcg IV daily Subjective ROS Limited/Unobtainable: Yes Allergies: Coded Allergies: No Known Allergies (Unverified , 02/29/20) Subjective events noted - interval notes reviewed intubated in ICU - on pressors glucose values are still elevated in 200 mg/dL range Item Value Date Time Bedside Blood Glucose 212 mg/dl H 03/26/20 0645 Bedside Blood Glucose 233 mg/dl H 03/26/20 0000 Bedside Blood Glucose 223 mg/dl H 03/25/20 1819 Bedside Blood Glucose 255 mg/dl H 03/25/20 1200 Bedside Blood Glucose 251 mg/dl H 03/25/20 0903 Bedside Blood Glucose 291 mg/dl H 03/25/20 0600 Objective Last 24 Hour Vital Signs Date Time Temp Pulse Resp B/P (MAP) Pulse Ox O2 Delivery O2 Flow Rate FiO2 03/26/20 06:45 93 24 91/54 (66) 90 03/26/20 06:36 93 24 87/51 (63) 90 03/26/20 06:35 94 24 85/50 (62) 90 03/26/20 06:30 94 24 85/49 (61) 90 03/26/20 06:15 94 24 89/51 (64) 90 03/26/20 06:00 94 24 107/69 (82) 97 03/26/20 05:30 95 24 112/69 (83) 97 03/26/20 05:00 95 24 119/71 (87) 98 03/26/20 05:00 24 Mechanical Ventilator 60 03/26/20 05:00 112/69 03/26/20 04:38 109/63 03/26/20 04:30 95 24 119/67 (84) 98 03/26/20 04:00 98.1 95 24 110/68 (82) 96 03/26/20 04:00 85 03/26/20 04:00 Mechanical Ventilator Mechanical Ventilator 03/26/20 04:00 24 Mechanical Ventilator 60 03/26/20 04:00 112/63 03/26/20 04:00 60 03/26/20 03:00 97 24 110/69 (83) 91 03/26/20 03:00 24 Mechanical Ventilator 60 03/26/20 03:00 136/69 03/26/20 02:30 97 24 120/73 (89) 90 03/26/20 02:00 98 25 128/72 (90) 90 03/26/20 02:00 24 Mechanical Ventilator 40 03/26/20 02:00 125/63 03/26/20 01:39 100 24 40 03/26/20 01:30 99 24 123/73 (90) 90 03/26/20 01:00 101 24 111/64 (80) 89 03/26/20 01:00 24 Mechanical Ventilator 40 03/26/20 01:00 100/56 03/26/20 00:45 101 24 109/63 (78) 96 03/26/20 00:38 102 24 91/49 (63) 96 03/26/20 00:36 101 24 74/41 (52) 96 03/26/20 00:30 101 24 67/40 (49) 92 03/26/20 00:15 87 24 90/43 (59) 96 03/26/20 00:00 97.5 71 24 95/44 (61) 96 03/26/20 00:00 Mechanical Ventilator Mechanical Ventilator 03/26/20 00:00 24 Mechanical Ventilator 40 03/26/20 00:00 77/39 03/26/20 00:00 40 03/26/20 00:00 102 03/25/20 23:45 72 24 120/59 (79) 92 03/25/20 23:30 73 24 132/62 (85) 96 03/25/20 23:15 74 24 113/54 (73) 100 03/25/20 23:00 64 24 110/57 (74) 100 03/25/20 23:00 24 Mechanical Ventilator 40 03/25/20 23:00 132/62 03/25/20 22:52 62 26 40 03/25/20 22:30 62 24 106/47 (66) 100 03/25/20 22:15 61 24 101/50 (67) 100 03/25/20 22:06 24 Mechanical Ventilator 40 03/25/20 22:00 98.1 60 24 102/50 (67) 97 03/25/20 22:00 99/49 03/25/20 21:45 58 24 102/56 (71) 97 03/25/20 21:30 59 24 109/59 (76) 97 03/25/20 21:15 77 24 106/53 (70) 95 03/25/20 21:00 76 24 95/52 (66) 93 03/25/20 21:00 104/59 03/25/20 20:45 69 24 96/49 (65) 95 03/25/20 20:30 63 24 97/49 (65) 98 03/25/20 20:15 58 24 128/71 (90) 98 03/25/20 20:11 147/77 03/25/20 20:00 61 03/25/20 20:00 40 03/25/20 20:00 97.3 62 24 163/84 (110) 98 03/25/20 20:00 Mechanical Ventilator Mechanical Ventilator 03/25/20 19:45 56 24 172/91 (118) 97 03/25/20 19:34 49 24 132/63 (86) 96 03/25/20 19:30 62 24 74/34 (47) 96 03/25/20 19:17 57 28 100 Mechanical Ventilator 40 03/25/20 19:16 57 28 40 03/25/20 19:15 76 24 86/45 (59) 98 03/25/20 19:00 20 147/77 Endotracheal Tube 40 03/25/20 19:00 147/77 03/25/20 19:00 56 28 147/77 (100) 97 03/25/20 18:45 58 153/66 (95) 99 03/25/20 18:30 58 12 139/69 (92) 98 03/25/20 18:15 61 20 138/71 (93) 98 03/25/20 18:00 62 21 137/70 (92) 99 03/25/20 18:00 20 138/68 Endotracheal Tube 40 03/25/20 18:00 138/68 03/25/20 17:46 99.8 03/25/20 17:30 61 21 138/68 (91) 98 03/25/20 17:29 122/67 03/25/20 17:00 100.9 76 28 122/67 (85) 100 03/25/20 17:00 20 122/67 Endotracheal Tube 40 03/25/20 16:30 78 21 157/75 (102) 97 03/25/20 16:00 40 03/25/20 16:00 20 111/53 Endotracheal Tube 40 03/25/20 16:00 Mechanical Ventilator Mechanical Ventilator 03/25/20 16:00 70 21 97/27 (50) 96 03/25/20 16:00 70 03/25/20 15:30 76 20 135/61 (85) 95 03/25/20 15:09 71 30 40 03/25/20 15:00 21 135/61 Endotracheal Tube 40 03/25/20 15:00 135/61 03/25/20 15:00 76 26 135/61 (85) 95 03/25/20 14:30 71 26 90/38 (55) 96 03/25/20 14:00 72 24 79/34 (49) 100 03/25/20 14:00 28 79/34 Endotracheal Tube 40 03/25/20 14:00 79/34 03/25/20 13:30 69 26 130/74 (92) 100 03/25/20 13:07 26 127/73 Endotracheal Tube 93.0 90 03/25/20 13:05 100.1 03/25/20 13:00 100.5 68 26 127/73 (91) 100 03/25/20 13:00 26 123/73 Endotracheal Tube 90 03/25/20 13:00 26 130/74 Endotracheal Tube 03/25/20 13:00 130/74 03/25/20 13:00 130/74 03/25/20 12:00 66 23 116/61 (79) 100 03/25/20 12:00 90 03/25/20 12:00 66 03/25/20 12:00 26 116/61 Endotracheal Tube 90 03/25/20 12:00 116/61 03/25/20 12:00 Mechanical Ventilator Mechanical Ventilator 03/25/20 11:51 147/76 03/25/20 11:35 69 23 147/76 (99) 100 03/25/20 11:23 71 31 90 03/25/20 11:02 71 26 143/78 (99) 100 03/25/20 11:00 26 147/76 Endotracheal Tube 90 03/25/20 11:00 147/76 03/25/20 10:30 73 26 143/82 (102) 100 03/25/20 10:30 75 137/81 (99) 100 03/25/20 10:00 79 143/82 (102) 100 03/25/20 10:00 26 143/82 Endotracheal Tube 90 03/25/20 10:00 143/82 03/25/20 09:30 73 161/84 (109) 100 03/25/20 09:00 69 155/78 (103) 100 03/25/20 09:00 26 161/84 Endotracheal Tube 90 03/25/20 08:59 96/60 Intake and Output 03/25/20 03/26/20 19:00 07:00 Intake Total 1442.140 ml 958.310 ml Output Total 2325 ml 2050 ml Balance -882.860 ml -1091.690 ml Free Water 120 ml IV Total 1022.140 ml 418.310 ml Tube Feeding 420 ml 420 ml Output Urine Total 2225 ml 2050 ml Stool Total 100 ml Laboratory Tests 03/25/20 11:54: Arterial Blood pH 7.500H, Arterial Blood Partial Pressure CO2 56.0*H, Arterial Blood Partial Pressure O2 234.9H, Arterial Blood HCO3 42.7*H, Arterial Blood Oxygen Saturation 99.2, Arterial Blood Base Excess 17.3*H, Joaquin Test Positive 03/26/20 04:00: White Blood Count 14.6H, Red Blood Count 2.79L, Hemoglobin 9.5L, Hematocrit 29.1L, Mean Corpuscular Volume 104H, Mean Corpuscular Hemoglobin 34.1H, Mean Corpuscular Hemoglobin Concent 32.7, Red Cell Distribution Width 19.7H, Platelet Count 166, Mean Platelet Volume 7.1, Neutrophils (%) (Auto) , Lymphocytes (%) (Auto) , Monocytes (%) (Auto) , Eosinophils (%) (Auto) , Basophils (%) (Auto) , Neutrophils % (Manual) [Pending], Lymphocytes % (Manual) [Pending], Platelet Estimate [Pending], Platelet Morphology [Pending], Sodium Level 154#H, Potassium Level 4.5, Chloride Level 109H, Carbon Dioxide Level > 45 *H, Blood Urea Nitrogen 25H, Creatinine 0.8, Estimat Glomerular Filtration Rate > 60, Glucose Level 310H, Calcium Level 8.7, Phosphorus Level 3.3, Magnesium Level 2.4, Total Bilirubin 2.6H, Direct Bilirubin 1.6H, Aspartate Amino Transf ( AST/SGOT) 203H, Alanine Aminotransferase (ALT/SGPT) 161H, Alkaline Phosphatase 223H, C-Reactive Protein, Quantitative 2.8H, Pro-B-Type Natriuretic Peptide 61534D, Total Protein 7.6, Albumin 2.4L, Globulin 5.2, Albumin/Globulin Ratio 0.5L 03/26/20 07:32: Arterial Blood pH 7.439, Arterial Blood Partial Pressure CO2 67.6*H, Arterial Blood Partial Pressure O2 104.7H, Arterial Blood HCO3 44.7*H, Arterial Blood Oxygen Saturation 96.6, Arterial Blood Base Excess 17.8*H, Joaquin Test Positive Height (Feet): 5 Height (Inches): 1.00 Weight (Pounds): 225 General Appearance: severe distress EENT: other - ETT Neck: normal alignment Cardiovascular: tachycardia Respiratory/Chest: decreased breath sounds Abdomen: normal bowel sounds Objective Current Medications Medications (Trade) Dose Ordered Sig/Dolores Route PRN Reason Start Time Stop Time Status Last Admin Dose Admin Acetaminophen (Tylenol) 650 mg Q4H PRN ORAL Mild Pain (Pain Scale 1-3) 03/13/20 14:53 04/12/20 14:52 03/25/20 12:35 Acetaminophen (Tylenol) 650 mg Q4H PRN ORAL Temp >100 03/13/20 14:53 04/12/20 14:52 03/25/20 17:16 Atorvastatin Calcium (Lipitor) 20 mg BEDTIME ORAL 03/24/20 21:00 06/22/20 20:59 03/25/20 20:10 Chlorhexidine Gluconate (Lucretia-Hex 2%) 1 applic DAILY@1999 TOPIC 03/13/20 20:00 06/11/20 19:59 03/25/20 20:08 Dextrose (Dextrose 50%) 25 ml Q30M PRN IV Hypoglycemia 03/22/20 18:15 06/20/20 18:14 Dextrose (Dextrose 50%) 50 ml Q30M PRN IV Hypoglycemia 03/22/20 18:15 06/20/20 18:14 Dopamine HCl/ Dextrose 250 ml @ 0 mls/hr Q24H IV 03/16/20 19:30 06/14/20 19:29 03/26/20 04:38 Enoxaparin Sodium (Lovenox) 100 mg EVERY 12 HOURS SUBQ 03/23/20 21:00 06/21/20 20:59 03/25/20 20:10 Fentanyl Citrate 2500 mcg/Sodium Chloride 250 ml @ 0 mls/hr Q24H IV 03/24/20 12:30 03/31/20 12:29 03/25/20 22:06 Hydralazine HCl (Apresoline) 10 mg Q6H PRN IV For High Blood Pressure 03/24/20 16:45 06/22/20 16:44 Insulin Aspart (NovoLOG) Q6HR SUBQ 03/16/20 12:00 06/14/20 11:59 03/26/20 06:45 Insulin Detemir (Levemir) 20 units BID SUBQ 03/25/20 18:00 06/20/20 18:59 03/25/20 18:19 Lactulose (Cephulac) 15 gm TID ORAL 03/24/20 13:00 04/23/20 12:59 03/25/20 18:20 Levofloxacin (Levaquin) 750 mg DAILY NG 03/20/20 12:00 03/27/20 11:59 03/25/20 09:00 Levothyroxine Sodium (Synthroid) 50 mcg DAILY IV 03/21/20 09:00 04/17/20 11:59 03/25/20 09:00 Lorazepam (Ativan 2mg/ml 1ml) 1 mg Q2H PRN IV For Anxiety 03/25/20 16:30 04/01/20 16:29 03/25/20 23:39 Methylprednisolone Sodium Succinate (Solu-MEDROL) 30 mg EVERY 12 HOURS IVP 03/25/20 21:00 06/17/20 20:59 03/25/20 20:09 Metoclopramide HCl (Reglan) 5 mg Q6HR IVP 03/24/20 12:00 04/23/20 11:59 03/26/20 06:45 Midodrine (Pro-Amatine) 2.5 mg THREE TIMES A DAY PRN NG For BP 100 systolic and below 03/25/20 12:30 06/20/20 12:29 Mirtazapine (Remeron) 7.5 mg BEDTIME PRN ORAL SLEEP 03/13/20 14:55 06/11/20 14:54 Non-Formulary Medication (Non-Formulary Med) 1 ea DAILY IV 03/18/20 09:00 04/17/20 08:59 UNV Norepinephrine Bitartrate 4 mg/ Dextrose 250 ml @ 0 mls/hr Q24H PRN IV For hypotension 03/25/20 16:30 04/24/20 16:29 Propofol 100 ml @ 0 mls/hr Q24H IV 03/24/20 17:32 03/26/20 17:31 03/25/20 13:07 Vancomycin HCl (Vanco rx to dose) 1 ea DAILY PRN MISC Per rx protocol 03/24/20 11:45 04/23/20 11:44 Vancomycin HCl 500 mg/Sodium Chloride 110 ml @ 110 mls/hr Q12HR IVPB 03/24/20 21:00 03/29/20 20:59 03/25/20 20:11 Vasopressin 100 units/Sodium Chloride 100 ml @ 0 mls/hr Q24H PRN IV For hypotension 03/16/20 11:00 04/15/20 10:59 03/19/20 18:03 Johan Christopher MD March 26, 2020 08:34
[2020-03-26] MEDS: Lactulose 20gm/30ml UDC ORAL SCH ×3 (08:39→17:56)
[2020-03-26] MEDS: Vancomycin 500 MG in NS 110 ML IVPB SCH (08:40)
[2020-03-26] MEDS: Solu-MEDROL 40mg Inj IVP SCH ×2 (08:40→19:49)
[2020-03-26] MEDS: Levofloxacin 750mg tab NG SCH (08:41)
[2020-03-26] MEDS: Enoxaparin 100mg Inj SUBQ SCH ×2 (08:42→19:50)
[2020-03-26] MEDS: Levemir Flexpen SUBQ SCH ×2 (08:46→17:57)
--- NOTE | 2020-03-26 09:06 | Nephrology Progress Note ---
Assessment/Plan Problem List: (1) Electrolyte imbalance Assessment: Hyponatremia resolved -hyperkalemia resolved (2) COVID-19 (3) Respiratory failure with hypoxia (4) Cellulitis (5) Hypothyroid Assessment Hyponatremia. Serum sodium started drifting down from March 16. Hyperkalemia. Septic shock. Acute respiratory failure. Respiratory failure and COVID pneumonia. History of cirrhosis/splenomegaly Anemia Bilateral lower extremity cellulitis Plan March 26: Remains unstable. Lasix and potassium chloride discontinued. IV Diamox initiated. ABG noted. Midodrine initiated. Continue per pulmonary and ID. Statins discontinued due to elevated liver enzymes. Continue to monitor electrolytes and renal parameters and ABG. Patient remains full code. 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 Taper steroids's deferred to data warehouse developer Urine sodium is below 20 Serum ammonia is elevated will start lactulose Patient on Solu-Medrol and Solu-Cortef will discontinue Solu-Cortef Will try to gently diurese for severe edema meanwhile administering albumin 25% as needed Monitor electrolytes and renal parameters We will add midodrine 10 mg 3 times a day via NG tube Decrease dosage of IV Synthroid Discussed with DAO Starr Subjective ROS Limited/Unobtainable: Yes Objective Objective Last 24 Hour Vital Signs Date Time Temp Pulse Resp B/P (MAP) Pulse Ox O2 Delivery O2 Flow Rate FiO2 03/26/20 07:05 94 24 40 03/26/20 06:45 93 24 91/54 (66) 90 03/26/20 06:36 93 24 87/51 (63) 90 03/26/20 06:35 94 24 85/50 (62) 90 03/26/20 06:30 94 24 85/49 (61) 90 03/26/20 06:15 94 24 89/51 (64) 90 03/26/20 06:00 94 24 107/69 (82) 97 03/26/20 05:30 95 24 112/69 (83) 97 03/26/20 05:00 95 24 119/71 (87) 98 03/26/20 05:00 24 Mechanical Ventilator 60 03/26/20 05:00 112/69 5/10/20 04:38 109/63 03/26/20 04:30 95 24 119/67 (84) 98 03/26/20 04:00 98.1 95 24 110/68 (82) 96 03/26/20 04:00 85 03/26/20 04:00 Mechanical Ventilator Mechanical Ventilator 03/26/20 04:00 24 Mechanical Ventilator 60 03/26/20 04:00 112/63 03/26/20 04:00 60 03/26/20 03:00 97 24 110/69 (83) 91 03/26/20 03:00 24 Mechanical Ventilator 60 03/26/20 03:00 136/69 03/26/20 02:30 97 24 120/73 (89) 90 03/26/20 02:00 98 25 128/72 (90) 90 03/26/20 02:00 24 Mechanical Ventilator 40 03/26/20 02:00 125/63 03/26/20 01:39 100 24 40 03/26/20 01:30 99 24 123/73 (90) 90 03/26/20 01:00 101 24 111/64 (80) 89 03/26/20 01:00 24 Mechanical Ventilator 40 03/26/20 01:00 100/56 03/26/20 00:45 101 24 109/63 (78) 96 03/26/20 00:38 102 24 91/49 (63) 96 03/26/20 00:36 101 24 74/41 (52) 96 03/26/20 00:30 101 24 67/40 (49) 92 03/26/20 00:15 87 24 90/43 (59) 96 03/26/20 00:00 97.5 71 24 95/44 (61) 96 03/26/20 00:00 Mechanical Ventilator Mechanical Ventilator 03/26/20 00:00 24 Mechanical Ventilator 40 03/26/20 00:00 77/39 03/26/20 00:00 40 03/26/20 00:00 102 03/25/20 23:45 72 24 120/59 (79) 92 03/25/20 23:30 73 24 132/62 (85) 96 03/25/20 23:15 74 24 113/54 (73) 100 03/25/20 23:00 64 24 110/57 (74) 100 03/25/20 23:00 24 Mechanical Ventilator 40 03/25/20 23:00 132/62 03/25/20 22:52 62 26 40 03/25/20 22:30 62 24 106/47 (66) 100 03/25/20 22:15 61 24 101/50 (67) 100 03/25/20 22:06 24 Mechanical Ventilator 40 03/25/20 22:00 98.1 60 24 102/50 (67) 97 03/25/20 22:00 99/49 03/25/20 21:45 58 24 102/56 (71) 97 03/25/20 21:30 59 24 109/59 (76) 97 03/25/20 21:15 77 24 106/53 (70) 95 03/25/20 21:00 76 24 95/52 (66) 93 03/25/20 21:00 104/59 03/25/20 20:45 69 24 96/49 (65) 95 03/25/20 20:30 63 24 97/49 (65) 98 03/25/20 20:15 58 24 128/71 (90) 98 03/25/20 20:11 147/77 03/25/20 20:00 61 03/25/20 20:00 40 03/25/20 20:00 97.3 62 24 163/84 (110) 98 03/25/20 20:00 Mechanical Ventilator Mechanical Ventilator 03/25/20 19:45 56 24 172/91 (118) 97 03/25/20 19:34 49 24 132/63 (86) 96 03/25/20 19:30 62 24 74/34 (47) 96 03/25/20 19:17 57 28 100 Mechanical Ventilator 40 03/25/20 19:16 57 28 40 03/25/20 19:15 76 24 86/45 (59) 98 03/25/20 19:00 20 147/77 Endotracheal Tube 40 03/25/20 19:00 147/77 03/25/20 19:00 56 28 147/77 (100) 97 03/25/20 18:45 58 153/66 (95) 99 03/25/20 18:30 58 12 139/69 (92) 98 03/25/20 18:15 61 20 138/71 (93) 98 03/25/20 18:00 62 21 137/70 (92) 99 03/25/20 18:00 20 138/68 Endotracheal Tube 40 03/25/20 18:00 138/68 03/25/20 17:46 99.8 03/25/20 17:30 61 21 138/68 (91) 98 03/25/20 17:29 122/67 03/25/20 17:00 100.9 76 28 122/67 (85) 100 03/25/20 17:00 20 122/67 Endotracheal Tube 40 03/25/20 16:30 78 21 157/75 (102) 97 03/25/20 16:00 40 03/25/20 16:00 20 111/53 Endotracheal Tube 40 03/25/20 16:00 Mechanical Ventilator Mechanical Ventilator 03/25/20 16:00 70 21 97/27 (50) 96 03/25/20 16:00 70 03/25/20 15:30 76 20 135/61 (85) 95 03/25/20 15:09 71 30 40 03/25/20 15:00 21 135/61 Endotracheal Tube 40 03/25/20 15:00 135/61 03/25/20 15:00 76 26 135/61 (85) 95 03/25/20 14:30 71 26 90/38 (55) 96 03/25/20 14:00 72 24 79/34 (49) 100 03/25/20 14:00 28 79/34 Endotracheal Tube 40 03/25/20 14:00 79/34 03/25/20 13:30 69 26 130/74 (92) 100 03/25/20 13:07 26 127/73 Endotracheal Tube 93.0 90 03/25/20 13:05 100.1 03/25/20 13:00 100.5 68 26 127/73 (91) 100 03/25/20 13:00 26 123/73 Endotracheal Tube 90 03/25/20 13:00 26 130/74 Endotracheal Tube 03/25/20 13:00 130/74 03/25/20 13:00 130/74 03/25/20 12:00 66 23 116/61 (79) 100 03/25/20 12:00 90 03/25/20 12:00 66 03/25/20 12:00 26 116/61 Endotracheal Tube 90 03/25/20 12:00 116/61 03/25/20 12:00 Mechanical Ventilator Mechanical Ventilator 03/25/20 11:51 147/76 03/25/20 11:35 69 23 147/76 (99) 100 03/25/20 11:23 71 31 90 03/25/20 11:02 71 26 143/78 (99) 100 03/25/20 11:00 26 147/76 Endotracheal Tube 90 03/25/20 11:00 147/76 03/25/20 10:30 73 26 143/82 (102) 100 03/25/20 10:30 75 137/81 (99) 100 03/25/20 10:00 79 143/82 (102) 100 03/25/20 10:00 26 143/82 Endotracheal Tube 90 03/25/20 10:00 143/82 03/25/20 09:30 73 161/84 (109) 100 Intake and Output 03/25/20 03/26/20 19:00 07:00 Intake Total 1442.140 ml 958.310 ml Output Total 2325 ml 2050 ml Balance -882.860 ml -1091.690 ml Free Water 120 ml IV Total 1022.140 ml 418.310 ml Tube Feeding 420 ml 420 ml Output Urine Total 2225 ml 2050 ml Stool Total 100 ml Laboratory Tests 03/25/20 11:54: Arterial Blood pH 7.500H, Arterial Blood Partial Pressure CO2 56.0*H, Arterial Blood Partial Pressure O2 234.9H, Arterial Blood HCO3 42.7*H, Arterial Blood Oxygen Saturation 99.2, Arterial Blood Base Excess 17.3*H, Joaquin Test Positive 03/26/20 04:00: White Blood Count 14.6H, Red Blood Count 2.79L, Hemoglobin 9.5L, Hematocrit 29.1L, Mean Corpuscular Volume 104H, Mean Corpuscular Hemoglobin 34.1H, Mean Corpuscular Hemoglobin Concent 32.7, Red Cell Distribution Width 19.7H, Platelet Count 166, Mean Platelet Volume 7.1, Neutrophils (%) (Auto) , Lymphocytes (%) (Auto) , Monocytes (%) (Auto) , Eosinophils (%) (Auto) , Basophils (%) (Auto) , Neutrophils % (Manual) [Pending], Lymphocytes % (Manual) [Pending], Platelet Estimate [Pending], Platelet Morphology [Pending], Sodium Level 154#H, Potassium Level 4.5, Chloride Level 109H, Carbon Dioxide Level > 45 *H, Blood Urea Nitrogen 25H, Creatinine 0.8, Estimat Glomerular Filtration Rate > 60, Glucose Level 310H, Calcium Level 8.7, Phosphorus Level 3.3, Magnesium Level 2.4, Total Bilirubin 2.6H, Direct Bilirubin 1.6H, Aspartate Amino Transf ( AST/SGOT) 203H, Alanine Aminotransferase (ALT/SGPT) 161H, Alkaline Phosphatase 223H, C-Reactive Protein, Quantitative 2.8H, Pro-B-Type Natriuretic Peptide 90537T, Total Protein 7.6, Albumin 2.4L, Globulin 5.2, Albumin/Globulin Ratio 0.5L 03/26/20 07:32: Arterial Blood pH 7.439, Arterial Blood Partial Pressure CO2 67.6*H, Arterial Blood Partial Pressure O2 104.7H, Arterial Blood HCO3 44.7*H, Arterial Blood Oxygen Saturation 96.6, Arterial Blood Base Excess 17.8*H, Joaquin Test Positive 03/26/20 08:30: Vancomycin Level Trough [Pending] Height (Feet): 5 Height (Inches): 1.00 Weight (Pounds): 225 General Appearance: no apparent distress EENT: other - Intubated on ventilator Cardiovascular: tachycardia Respiratory/Chest: decreased breath sounds Cristhian Granados MD March 26, 2020 09:06
--- NOTE | 2020-03-26 10:34 | Infectious Diseases Prog Note ---
Assessment/Plan Assessment/Plan IMPRESSION: 1. Bilateral leg cellulitis,Pseudomonas in culture 2. Anemia. 3. Hypoxemic respiratory failure 4. Thrombocytopenia. 5. Homeless 6. Morbid obesity. 7. Cirrhosis 8. COVID19 pneumonia Positive03/07-03/12 9. Hepatitis C 10.septic shock 11. Pneumonia with Pseudomonas RECOMMENDATION: Will f/u COVID19 test Finished Plaquenil & Zithromax course Received a dose of Actemra & Ivermectin Continue Levaquin, Discontinue IV Vancomycin Blood culture is negative so far Repeat COVID19 test Case was D/W RN Subjective ROS Limited/Unobtainable: Yes Constitutional: Reports: other - today; Denies: fever Cardiovascular: Reports: other - on Dopamine Allergies: Coded Allergies: No Known Allergies (Unverified , 02/29/20) Objective Vital Signs Last 24 Hour Vital Signs Date Time Temp Pulse Resp B/P (MAP) Pulse Ox O2 Delivery O2 Flow Rate FiO2 03/26/20 10:15 93 24 133/75 (94) 99 03/26/20 10:07 85/47 03/26/20 10:00 92 24 85/47 (60) 97 03/26/20 09:30 93 24 97/59 (72) 98 03/26/20 09:00 24 Endotracheal Tube 60 03/26/20 09:00 95/58 03/26/20 09:00 94 24 117/72 (87) 99 03/26/20 08:30 94 25 101/76 (84) 98 03/26/20 08:00 Mechanical Ventilator Mechanical Ventilator 03/26/20 08:00 99.2 94 24 94/58 (70) 98 03/26/20 08:00 24 Endotracheal Tube 60 03/26/20 08:00 97/60 03/26/20 08:00 60 03/26/20 08:00 94 03/26/20 07:30 94 25 100/66 (77) 98 03/26/20 07:05 94 24 40 03/26/20 07:00 93 24 114/66 (82) 98 03/26/20 07:00 24 Endotracheal Tube 60 03/26/20 07:00 102/62 03/26/20 06:45 93 24 91/54 (66) 90 03/26/20 06:36 93 24 87/51 (63) 90 03/26/20 06:35 94 24 85/50 (62) 90 03/26/20 06:30 94 24 85/49 (61) 90 03/26/20 06:15 94 24 89/51 (64) 90 03/26/20 06:00 94 24 107/69 (82) 97 03/26/20 05:30 95 24 112/69 (83) 97 03/26/20 05:00 95 24 119/71 (87) 98 03/26/20 05:00 24 Mechanical Ventilator 60 03/26/20 05:00 112/69 03/26/20 04:38 109/63 03/26/20 04:30 95 24 119/67 (84) 98 03/26/20 04:00 98.1 95 24 110/68 (82) 96 03/26/20 04:00 85 03/26/20 04:00 Mechanical Ventilator Mechanical Ventilator 03/26/20 04:00 24 Mechanical Ventilator 60 03/26/20 04:00 112/63 03/26/20 04:00 60 03/26/20 03:00 97 24 110/69 (83) 91 03/26/20 03:00 24 Mechanical Ventilator 60 03/26/20 03:00 136/69 03/26/20 02:30 97 24 120/73 (89) 90 03/26/20 02:00 98 25 128/72 (90) 90 03/26/20 02:00 24 Mechanical Ventilator 40 03/26/20 02:00 125/63 03/26/20 01:39 100 24 40 03/26/20 01:30 99 24 123/73 (90) 90 03/26/20 01:00 101 24 111/64 (80) 89 03/26/20 01:00 24 Mechanical Ventilator 40 03/26/20 01:00 100/56 03/26/20 00:45 101 24 109/63 (78) 96 03/26/20 00:38 102 24 91/49 (63) 96 03/26/20 00:36 101 24 74/41 (52) 96 03/26/20 00:30 101 24 67/40 (49) 92 03/26/20 00:15 87 24 90/43 (59) 96 03/26/20 00:00 97.5 71 24 95/44 (61) 96 03/26/20 00:00 Mechanical Ventilator Mechanical Ventilator 03/26/20 00:00 24 Mechanical Ventilator 40 03/26/20 00:00 77/39 03/26/20 00:00 40 03/26/20 00:00 102 03/25/20 23:45 72 24 120/59 (79) 92 03/25/20 23:30 73 24 132/62 (85) 96 03/25/20 23:15 74 24 113/54 (73) 100 03/25/20 23:00 64 24 110/57 (74) 100 03/25/20 23:00 24 Mechanical Ventilator 40 03/25/20 23:00 132/62 03/25/20 22:52 62 26 40 03/25/20 22:30 62 24 106/47 (66) 100 03/25/20 22:15 61 24 101/50 (67) 100 03/25/20 22:06 24 Mechanical Ventilator 40 03/25/20 22:00 98.1 60 24 102/50 (67) 97 03/25/20 22:00 99/49 03/25/20 21:45 58 24 102/56 (71) 97 03/25/20 21:30 59 24 109/59 (76) 97 03/25/20 21:15 77 24 106/53 (70) 95 03/25/20 21:00 76 24 95/52 (66) 93 03/25/20 21:00 104/59 03/25/20 20:45 69 24 96/49 (65) 95 03/25/20 20:30 63 24 97/49 (65) 98 03/25/20 20:15 58 24 128/71 (90) 98 03/25/20 20:11 147/77 03/25/20 20:00 61 03/25/20 20:00 40 03/25/20 20:00 97.3 62 24 163/84 (110) 98 03/25/20 20:00 Mechanical Ventilator Mechanical Ventilator 03/25/20 19:45 56 24 172/91 (118) 97 03/25/20 19:34 49 24 132/63 (86) 96 03/25/20 19:30 62 24 74/34 (47) 96 03/25/20 19:17 57 28 100 Mechanical Ventilator 40 03/25/20 19:16 57 28 40 03/25/20 19:15 76 24 86/45 (59) 98 03/25/20 19:00 20 147/77 Endotracheal Tube 40 03/25/20 19:00 147/77 03/25/20 19:00 56 28 147/77 (100) 97 03/25/20 18:45 58 153/66 (95) 99 03/25/20 18:30 58 12 139/69 (92) 98 03/25/20 18:15 61 20 138/71 (93) 98 03/25/20 18:00 62 21 137/70 (92) 99 03/25/20 18:00 20 138/68 Endotracheal Tube 40 03/25/20 18:00 138/68 03/25/20 17:46 99.8 03/25/20 17:30 61 21 138/68 (91) 98 03/25/20 17:29 122/67 03/25/20 17:00 100.9 76 28 122/67 (85) 100 03/25/20 17:00 20 122/67 Endotracheal Tube 40 03/25/20 16:30 78 21 157/75 (102) 97 03/25/20 16:00 40 03/25/20 16:00 20 111/53 Endotracheal Tube 40 03/25/20 16:00 Mechanical Ventilator Mechanical Ventilator 03/25/20 16:00 70 21 97/27 (50) 96 03/25/20 16:00 70 03/25/20 15:30 76 20 135/61 (85) 95 03/25/20 15:09 71 30 40 03/25/20 15:00 21 135/61 Endotracheal Tube 40 03/25/20 15:00 135/61 03/25/20 15:00 76 26 135/61 (85) 95 03/25/20 14:30 71 26 90/38 (55) 96 03/25/20 14:00 72 24 79/34 (49) 100 03/25/20 14:00 28 79/34 Endotracheal Tube 40 03/25/20 14:00 79/34 03/25/20 13:30 69 26 130/74 (92) 100 03/25/20 13:07 26 127/73 Endotracheal Tube 93.0 90 03/25/20 13:05 100.1 03/25/20 13:00 100.5 68 26 127/73 (91) 100 03/25/20 13:00 26 123/73 Endotracheal Tube 90 03/25/20 13:00 26 130/74 Endotracheal Tube 03/25/20 13:00 130/74 03/25/20 13:00 130/74 03/25/20 12:00 66 23 116/61 (79) 100 03/25/20 12:00 90 03/25/20 12:00 66 03/25/20 12:00 26 116/61 Endotracheal Tube 90 03/25/20 12:00 116/61 03/25/20 12:00 Mechanical Ventilator Mechanical Ventilator 03/25/20 11:51 147/76 03/25/20 11:35 69 23 147/76 (99) 100 03/25/20 11:23 71 31 90 03/25/20 11:02 71 26 143/78 (99) 100 03/25/20 11:00 26 147/76 Endotracheal Tube 90 03/25/20 11:00 147/76 Height (Feet): 5 Height (Inches): 1.00 Weight (Pounds): 225 HEENT: mucous membranes moist, other - orally intubated Respiratory/Chest: other - on Ventilator, FIO2=60% Cardiovascular: normal rate, other - PICC line Abdomen: soft, non tender, other - NG tube Extremities: other - edema Neurologic/Psychiatric: other - sedated Microbiology Date/Time Source Procedure Growth Status 03/24/20 12:30 Blood Blood Culture - Preliminary NO GROWTH AFTER 24 HOURS Resulted 03/24/20 12:30 Blood Blood Culture - Preliminary NO GROWTH AFTER 24 HOURS Resulted 03/24/20 13:32 Nasopharynx Coronavirus COVID-19 PCR (DANIELLA) - Final Complete Laboratory Tests Test 03/25/20 11:54 03/26/20 04:00 03/26/20 07:32 03/26/20 08:30 Arterial Blood pH 7.500 (7.350-7.450) 7.439 (7.350-7.450) Arterial Blood Partial Pressure CO2 56.0 mmHg (35.0-45.0) *H 67.6 mmHg (35.0-45.0) *H Arterial Blood Partial Pressure O2 234.9 mmHg (75.0-100.0) H 104.7 mmHg (75.0-100.0) H Arterial Blood HCO3 42.7 mmol/L (22.0-26.0) *H 44.7 mmol/L (22.0-26.0) *H Arterial Blood Oxygen Saturation 99.2 % (95-100) 96.6 % (95-100) Arterial Blood Base Excess 17.3 (-2-2) *H 17.8 (-2-2) *H Joaquin Test Positive Positive White Blood Count 14.6 K/UL (4.8-10.8) H Red Blood Count 2.79 M/UL (4.20-5.40) L Hemoglobin 9.5 G/DL (12.0-16.0) L Hematocrit 29.1 % (37.0-47.0) L Mean Corpuscular Volume 104 FL (80-99) H Mean Corpuscular Hemoglobin 34.1 PG (27.0-31.0) H Mean Corpuscular Hemoglobin Concent 32.7 G/DL (32.0-36.0) Red Cell Distribution Width 19.7 % (11.6-14.8) H Platelet Count 166 K/UL (150-450) Mean Platelet Volume 7.1 FL (6.5-10.1) Neutrophils (%) (Auto) % (45.0-75.0) Lymphocytes (%) (Auto) % (20.0-45.0) Monocytes (%) (Auto) % (1.0-10.0) Eosinophils (%) (Auto) % (0.0-3.0) Basophils (%) (Auto) % (0.0-2.0) Differential Total Cells Counted 100 Neutrophils % (Manual) 90 % (45-75) H Lymphocytes % (Manual) 5 % (20-45) L Monocytes % (Manual) 5 % (1-10) Eosinophils % (Manual) 0 % (0-3) Basophils % (Manual) 0 % (0-2) Band Neutrophils 0 % (0-8) Platelet Estimate Adequate Platelet Morphology Normal Hypochromasia 1+ Anisocytosis 1+ Macrocytosis 1+ Sodium Level 154 MMOL/L (136-145) #H Potassium Level 4.5 MMOL/L (3.5-5.1) Chloride Level 109 MMOL/L (98-107) H Carbon Dioxide Level > 45 MMOL/L (21-32) *H Blood Urea Nitrogen 25 mg/dL (7-18) H Creatinine 0.8 MG/DL (0.55-1.30) Estimat Glomerular Filtration Rate > 60 mL/min (>60) Glucose Level 310 MG/DL (74-106) H Calcium Level 8.7 MG/DL (8.5-10.1) Phosphorus Level 3.3 MG/DL (2.5-4.9) Magnesium Level 2.4 MG/DL (1.8-2.4) Total Bilirubin 2.6 MG/DL (0.2-1.0) H Direct Bilirubin 1.6 MG/DL (0.0-0.3) H Aspartate Amino Transf (AST/SGOT) 203 U/L (15-37) H Alanine Aminotransferase (ALT/SGPT) 161 U/L (12-78) H Alkaline Phosphatase 223 U/L (46-116) H C-Reactive Protein, Quantitative 2.8 mg/dL (0.00-0.90) H Pro-B-Type Natriuretic Peptide 86091 pg/mL (0-125) H Total Protein 7.6 G/DL (6.4-8.2) Albumin 2.4 G/DL (3.4-5.0) L Globulin 5.2 g/dL Albumin/Globulin Ratio 0.5 (1.0-2.7) L Vancomycin Level Trough 17.1 ug/mL (5.0-12.0) H Current Medications Medications (Trade) Dose Ordered Sig/Dolores Route PRN Reason Start Time Stop Time Status Last Admin Dose Admin Acetaminophen (Tylenol) 650 mg Q4H PRN ORAL Mild Pain (Pain Scale 1-3) 03/13/20 14:53 04/12/20 14:52 03/25/20 12:35 Acetaminophen (Tylenol) 650 mg Q4H PRN ORAL Temp >100 03/13/20 14:53 04/12/20 14:52 03/25/20 17:16 Acetazolamide (Diamox 500mg Inj) 250 mg Q12H IVP 03/26/20 12:00 04/25/20 11:59 Chlorhexidine Gluconate (Lucretia-Hex 2%) 1 applic DAILY@1999 TOPIC 03/13/20 20:00 06/11/20 19:59 03/25/20 20:08 Dextrose (Dextrose 50%) 25 ml Q30M PRN IV Hypoglycemia 03/26/20 08:45 06/24/20 08:44 Dextrose (Dextrose 50%) 50 ml Q30M PRN IV Hypoglycemia 03/26/20 08:45 06/24/20 08:44 Dopamine HCl/ Dextrose 250 ml @ 0 mls/hr Q24H IV 03/16/20 19:30 06/14/20 19:29 03/26/20 10:07 Enoxaparin Sodium (Lovenox) 100 mg EVERY 12 HOURS SUBQ 03/23/20 21:00 06/21/20 20:59 03/26/20 08:42 Fentanyl Citrate 2500 mcg/Sodium Chloride 250 ml @ 0 mls/hr Q24H IV 03/24/20 12:30 03/31/20 12:29 03/25/20 22:06 Hydralazine HCl (Apresoline) 10 mg Q6H PRN IV For High Blood Pressure 03/24/20 16:45 06/22/20 16:44 Insulin Aspart (NovoLOG) EVERY 4 HOURS SUBQ 03/26/20 09:00 06/24/20 08:59 03/26/20 08:44 Insulin Detemir (Levemir) 24 units BID SUBQ 03/26/20 09:00 06/20/20 18:59 03/26/20 08:46 Lactulose (Cephulac) 15 gm TID ORAL 03/24/20 13:00 04/23/20 12:59 03/26/20 08:39 Levofloxacin (Levaquin) 750 mg DAILY NG 03/20/20 12:00 03/27/20 11:59 03/26/20 08:41 Levothyroxine Sodium (Synthroid) 50 mcg DAILY IV 03/21/20 09:00 04/17/20 11:59 03/26/20 08:40 Lorazepam (Ativan 2mg/ml 1ml) 1 mg Q2H PRN IV For Anxiety 03/25/20 16:30 04/01/20 16:29 03/25/20 23:39 Methylprednisolone Sodium Succinate (Solu-MEDROL) 30 mg EVERY 12 HOURS IVP 03/25/20 21:00 06/17/20 20:59 03/26/20 08:40 Metoclopramide HCl (Reglan) 5 mg Q6HR IVP 03/24/20 12:00 04/23/20 11:59 03/26/20 06:45 Midodrine (Pro-Amatine) 5 mg THREE TIMES A DAY NG 03/26/20 13:00 06/20/20 12:29 Mirtazapine (Remeron) 7.5 mg BEDTIME PRN ORAL SLEEP 03/13/20 14:55 06/11/20 14:54 Non-Formulary Medication (Non-Formulary Med) 1 ea DAILY IV 03/18/20 09:00 04/17/20 08:59 UNV Norepinephrine Bitartrate 4 mg/ Dextrose 250 ml @ 0 mls/hr Q24H PRN IV For hypotension 03/25/20 16:30 04/24/20 16:29 Propofol 100 ml @ 0 mls/hr Q24H IV 03/24/20 17:32 03/26/20 17:31 03/25/20 13:07 Vancomycin HCl (Vanco rx to dose) 1 ea DAILY PRN MISC Per rx protocol 03/24/20 11:45 04/23/20 11:44 Vancomycin HCl 500 mg/Sodium Chloride 110 ml @ 110 mls/hr Q12HR IVPB 03/24/20 21:00 03/29/20 20:59 03/26/20 08:40 Vasopressin 100 units/Sodium Chloride 100 ml @ 0 mls/hr Q24H PRN IV For hypotension 03/16/20 11:00 04/15/20 10:59 03/19/20 18:03 Jonathon Shah MD March 26, 2020 10:34
[2020-03-26] MEDS: acetaZOLAMIDE 500mg Inj IVP SCH ×2 (12:36→23:04)
--- NOTE | 2020-03-26 12:45 | Hematology/Onc Progress Note ---
Assessment/Plan Assessment/Plan Assessment and Recs # Pancytopenia -- multiple etiologies could be related to underlying liver disease, medication-induced, infection versus viral syndrome versus underlying bone marrow cause, in this case, has severe liver disease and cirrhosis, HEP C++ , also cellulitis --> peripheral smear has been ordered and does not show significant abnormalities and none noted --> Medications have been reviewed --> Continue to monitor for improvement, trend cbc --> Hep panel and HIV are both negative --> US abd ordered to r/o cirrhosis and hepatosplenomegaly ->CIRRHOSIS IS NOTED , LARGE SPLEEN --> reverse isolation if ANC is <2000 --> Give neupogen if ANC <1000 --> Transfuse if hgb <7, with 1 unit prbc --> anemia panel ordered as well-->CW acd --> hgb trend 7-->7.1-->8.4-->8.2 -->8.7-->9.9-->9.2-->9.5-->9.1 --> plt 145k-->152-->162k-->149k-->121k-->171k-->149-->163 --> wbc 3.4-->3.5->3.9->4.4-->11-->10.8 -->15 --> abx: sameer/rifaximin-->levaquin /vanc # Cellulitis of the lower extremities --> continue abx as needed as per id --> Started on IV antibiotics-->azithro/cefepime-->levaquin --> as per surg recs, wound care # Ftt --> remains on mirtazapine # Elevated LFTS --> as per gi --> due to cirrhosis # Respiratory failure --> s/p intubation 03/16 --> prone positioning as needed by pulm # Dvt ppx lovenox sq The timing of this note does not necessarily reflect the time of the patient was seen. Greatly appreciate consultation. Subjective Genitourinary: Denies: no symptoms, burning, discharge, frequency, flank pain, hematuria, incontinence, pain, urgency, other Neurologic/Psychiatric: Denies: no symptoms, anxiety, depressed, emotional problems, headache, numbness, paresthesia, pre-existing deficit, seizure, tingling, tremors, weakness, other Endocrine: Denies: no symptoms, excessive sweating, flushing, intolerance to cold, intolerance to heat, increased hunger, increased thirst, increased urine, unexplained weight gain, unexplained weight loss, other Allergies: Coded Allergies: No Known Allergies (Unverified , 02/29/20) All Systems: reviewed and negative except above Subjective 03/02 no events, no bleeding, hgb 7.1, no hemolysis 03/03 s/p blood, hgb improved to 8.4, stool ob negtive, on abx 03/05 asleep, no acute distress, hgb 8.2 03/06 remains comfortable, on abx, plt remains low 03/07 is on nonrebreather, no night sweats, labs are noted 03/08 labs reviewed, being diuresed, seen by cards, psych, labs noted 03/09 lasix adjusted, wbc remains low at 3.9, reviewed meds, smear 03/10 no night sweats, no bleeding, labs noted, smear noted 03/12 labs noted, none completed, have reordered, cellulitis better 03/13 is continuing with chest pain, cards aware, no further studies until covid neg 03/14 labs noted, no bleeding, diuresis as needed, hgb stable 03/15 alseep is cooperative, no bleeding, meds noted 03/16 no bleeding or chills, hgb 10.8, no night sweats, no major events 03/17 now intubated, no bleeding, labs noted, dw rn 03/19 remains intubated, no bleeding, labs noted, on pressors 03/20 prone posiition, seen by gi and renal, nob leeding, hgb 10.1 03/21 sedated, remains agitated, pulling on 2p restraints, no bleeding 03/22 icu, h/h stable, finished plaq/zithro, no acute distress 03/23 in icu, remains restless no bleeding, labs noted, no bleeding 03/24 in icu, poor prognosis, no night sweats, no fc 03/26 on vent, unresponsive, no bleeding, wbc high is on abx and steriods Objective Objective Current Medications Medications (Trade) Dose Ordered Sig/Dolores Route PRN Reason Start Time Stop Time Status Last Admin Dose Admin Acetaminophen (Tylenol) 650 mg Q4H PRN ORAL Mild Pain (Pain Scale 1-3) 03/13/20 14:53 04/12/20 14:52 03/25/20 12:35 Acetaminophen (Tylenol) 650 mg Q4H PRN ORAL Temp >100 03/13/20 14:53 04/12/20 14:52 03/25/20 17:16 Acetazolamide (Diamox 500mg Inj) 250 mg Q12H IVP 03/26/20 12:00 04/25/20 11:59 03/26/20 12:36 Chlorhexidine Gluconate (Lucretia-Hex 2%) 1 applic DAILY@2000 TOPIC 03/13/20 20:00 06/11/20 19:59 03/25/20 20:08 Dextrose (Dextrose 50%) 25 ml Q30M PRN IV Hypoglycemia 03/26/20 08:45 06/24/20 08:44 Dextrose (Dextrose 50%) 50 ml Q30M PRN IV Hypoglycemia 03/26/20 08:45 06/24/20 08:44 Dopamine HCl/ Dextrose 250 ml @ 0 mls/hr Q24H IV 03/16/20 19:30 06/14/20 19:29 03/26/20 10:07 Enoxaparin Sodium (Lovenox) 100 mg EVERY 12 HOURS SUBQ 03/23/20 21:00 06/21/20 20:59 03/26/20 08:42 Fentanyl Citrate 2500 mcg/Sodium Chloride 250 ml @ 0 mls/hr Q24H IV 03/24/20 12:30 03/31/20 12:29 03/25/20 22:06 Hydralazine HCl (Apresoline) 10 mg Q6H PRN IV For High Blood Pressure 03/24/20 16:45 06/22/20 16:44 Insulin Aspart (NovoLOG) EVERY 4 HOURS SUBQ 03/26/20 09:00 06/24/20 08:59 03/26/20 12:37 Insulin Detemir (Levemir) 24 units BID SUBQ 03/26/20 09:00 06/20/20 18:59 03/26/20 08:46 Lactulose (Cephulac) 15 gm TID ORAL 03/24/20 13:00 04/23/20 12:59 03/26/20 12:34 Levofloxacin (Levaquin) 750 mg DAILY NG 03/20/20 12:00 03/27/20 11:59 03/26/20 08:41 Levothyroxine Sodium (Synthroid) 50 mcg DAILY IV 03/21/20 09:00 04/17/20 11:59 03/26/20 08:40 Lorazepam (Ativan 2mg/ml 1ml) 1 mg Q2H PRN IV For Anxiety 03/25/20 16:30 04/01/20 16:29 03/25/20 23:39 Methylprednisolone Sodium Succinate (Solu-MEDROL) 30 mg EVERY 12 HOURS IVP 03/25/20 21:00 06/17/20 20:59 03/26/20 08:40 Metoclopramide HCl (Reglan) 5 mg Q6HR IVP 03/24/20 12:00 04/23/20 11:59 03/26/20 12:34 Midodrine (Pro-Amatine) 5 mg THREE TIMES A DAY NG 03/26/20 13:00 06/20/20 12:29 03/26/20 12:34 Mirtazapine (Remeron) 7.5 mg BEDTIME PRN ORAL SLEEP 03/13/20 14:55 06/11/20 14:54 Non-Formulary Medication (Non-Formulary Med) 1 ea DAILY IV 03/18/20 09:00 04/17/20 08:59 UNV Norepinephrine Bitartrate 4 mg/ Dextrose 250 ml @ 0 mls/hr Q24H PRN IV For hypotension 03/25/20 16:30 04/24/20 16:29 Propofol 100 ml @ 0 mls/hr Q24H IV 03/24/20 17:32 03/26/20 17:31 03/25/20 13:07 Vasopressin 100 units/Sodium Chloride 100 ml @ 0 mls/hr Q24H PRN IV For hypotension 03/16/20 11:00 04/15/20 10:59 03/19/20 18:03 Last 24 Hour Vital Signs Date Time Temp Pulse Resp B/P (MAP) Pulse Ox O2 Delivery O2 Flow Rate FiO2 03/26/20 12:30 93 31 123/70 (87) 99 03/26/20 12:00 94 03/26/20 12:00 94 24 116/69 (85) 99 03/26/20 11:30 94 24 123/70 (87) 99 03/26/20 11:00 95 24 119/73 (88) 99 03/26/20 11:00 95 31 119/73 (88) 99 03/26/20 11:00 24 Endotracheal Tube 60 03/26/20 11:00 116/69 03/26/20 10:45 94 24 117/67 (84) 99 03/26/20 10:40 93 24 40 03/26/20 10:30 94 24 123/71 (88) 99 03/26/20 10:15 93 24 133/75 (94) 99 03/26/20 10:07 85/47 03/26/20 10:00 24 Endotracheal Tube 60 03/26/20 10:00 92 24 85/47 (60) 97 03/26/20 09:30 93 24 97/59 (72) 98 03/26/20 09:00 24 Endotracheal Tube 60 03/26/20 09:00 95/58 03/26/20 09:00 94 24 117/72 (87) 99 03/26/20 08:30 94 25 101/76 (84) 98 03/26/20 08:00 Mechanical Ventilator Mechanical Ventilator 03/26/20 08:00 99.2 94 24 94/58 (70) 98 03/26/20 08:00 24 Endotracheal Tube 60 03/26/20 08:00 97/60 03/26/20 08:00 60 03/26/20 08:00 94 03/26/20 07:30 94 25 100/66 (77) 98 03/26/20 07:05 94 24 40 03/26/20 07:00 93 24 114/66 (82) 98 03/26/20 07:00 24 Endotracheal Tube 60 03/26/20 07:00 102/62 03/26/20 06:45 93 24 91/54 (66) 90 03/26/20 06:36 93 24 87/51 (63) 90 03/26/20 06:35 94 24 85/50 (62) 90 03/26/20 06:30 94 24 85/49 (61) 90 03/26/20 06:15 94 24 89/51 (64) 90 03/26/20 06:00 94 24 107/69 (82) 97 03/26/20 05:30 95 24 112/69 (83) 97 03/26/20 05:00 95 24 119/71 (87) 98 03/26/20 05:00 24 Mechanical Ventilator 60 03/26/20 05:00 112/69 03/26/20 04:38 109/63 03/26/20 04:30 95 24 119/67 (84) 98 03/26/20 04:00 98.1 95 24 110/68 (82) 96 03/26/20 04:00 85 03/26/20 04:00 Mechanical Ventilator Mechanical Ventilator 03/26/20 04:00 24 Mechanical Ventilator 60 03/26/20 04:00 112/63 03/26/20 04:00 60 03/26/20 03:00 97 24 110/69 (83) 91 03/26/20 03:00 24 Mechanical Ventilator 60 03/26/20 03:00 136/69 03/26/20 02:30 97 24 120/73 (89) 90 03/26/20 02:00 98 25 128/72 (90) 90 03/26/20 02:00 24 Mechanical Ventilator 40 03/26/20 02:00 125/63 03/26/20 01:39 100 24 40 03/26/20 01:30 99 24 123/73 (90) 90 03/26/20 01:00 101 24 111/64 (80) 89 03/26/20 01:00 24 Mechanical Ventilator 40 03/26/20 01:00 100/56 03/26/20 00:45 101 24 109/63 (78) 96 03/26/20 00:38 102 24 91/49 (63) 96 03/26/20 00:36 101 24 74/41 (52) 96 03/26/20 00:30 101 24 67/40 (49) 92 03/26/20 00:15 87 24 90/43 (59) 96 03/26/20 00:00 97.5 71 24 95/44 (61) 96 03/26/20 00:00 Mechanical Ventilator Mechanical Ventilator 03/26/20 00:00 24 Mechanical Ventilator 40 03/26/20 00:00 77/39 03/26/20 00:00 40 03/26/20 00:00 102 03/25/20 23:45 72 24 120/59 (79) 92 03/25/20 23:30 73 24 132/62 (85) 96 03/25/20 23:15 74 24 113/54 (73) 100 03/25/20 23:00 64 24 110/57 (74) 100 03/25/20 23:00 24 Mechanical Ventilator 40 03/25/20 23:00 132/62 03/25/20 22:52 62 26 40 03/25/20 22:30 62 24 106/47 (66) 100 03/25/20 22:15 61 24 101/50 (67) 100 03/25/20 22:06 24 Mechanical Ventilator 40 03/25/20 22:00 98.1 60 24 102/50 (67) 97 03/25/20 22:00 99/49 03/25/20 21:45 58 24 102/56 (71) 97 03/25/20 21:30 59 24 109/59 (76) 97 03/25/20 21:15 77 24 106/53 (70) 95 03/25/20 21:00 76 24 95/52 (66) 93 03/25/20 21:00 104/59 03/25/20 20:45 69 24 96/49 (65) 95 03/25/20 20:30 63 24 97/49 (65) 98 03/25/20 20:15 58 24 128/71 (90) 98 03/25/20 20:11 147/77 03/25/20 20:00 61 03/25/20 20:00 40 03/25/20 20:00 97.3 62 24 163/84 (110) 98 03/25/20 20:00 Mechanical Ventilator Mechanical Ventilator 03/25/20 19:45 56 24 172/91 (118) 97 03/25/20 19:34 49 24 132/63 (86) 96 03/25/20 19:30 62 24 74/34 (47) 96 03/25/20 19:17 57 28 100 Mechanical Ventilator 40 03/25/20 19:16 57 28 40 03/25/20 19:15 76 24 86/45 (59) 98 03/25/20 19:00 20 147/77 Endotracheal Tube 40 03/25/20 19:00 147/77 03/25/20 19:00 56 28 147/77 (100) 97 03/25/20 18:45 58 153/66 (95) 99 03/25/20 18:30 58 12 139/69 (92) 98 03/25/20 18:15 61 20 138/71 (93) 98 03/25/20 18:00 62 21 137/70 (92) 99 03/25/20 18:00 20 138/68 Endotracheal Tube 40 03/25/20 18:00 138/68 03/25/20 17:46 99.8 03/25/20 17:30 61 21 138/68 (91) 98 03/25/20 17:29 122/67 03/25/20 17:00 100.9 76 28 122/67 (85) 100 03/25/20 17:00 20 122/67 Endotracheal Tube 40 03/25/20 16:30 78 21 157/75 (102) 97 03/25/20 16:00 40 03/25/20 16:00 20 111/53 Endotracheal Tube 40 03/25/20 16:00 Mechanical Ventilator Mechanical Ventilator 03/25/20 16:00 70 21 97/27 (50) 96 03/25/20 16:00 70 03/25/20 15:30 76 20 135/61 (85) 95 03/25/20 15:09 71 30 40 03/25/20 15:00 21 135/61 Endotracheal Tube 40 03/25/20 15:00 135/61 03/25/20 15:00 76 26 135/61 (85) 95 03/25/20 14:30 71 26 90/38 (55) 96 03/25/20 14:00 72 24 79/34 (49) 100 03/25/20 14:00 28 79/34 Endotracheal Tube 40 03/25/20 14:00 79/34 03/25/20 13:30 69 26 130/74 (92) 100 03/25/20 13:07 26 127/73 Endotracheal Tube 93.0 90 03/25/20 13:05 100.1 03/25/20 13:00 100.5 68 26 127/73 (91) 100 03/25/20 13:00 26 123/73 Endotracheal Tube 90 03/25/20 13:00 26 130/74 Endotracheal Tube 03/25/20 13:00 130/74 03/25/20 13:00 130/74 03/25/20 12:00 66 23 116/61 (79) 100 03/25/20 12:00 90 03/25/20 12:00 66 03/25/20 12:00 26 116/61 Endotracheal Tube 90 03/25/20 12:00 116/61 03/25/20 12:00 Mechanical Ventilator Mechanical Ventilator 03/25/20 11:51 147/76 03/25/20 11:35 69 23 147/76 (99) 100 03/25/20 11:23 71 31 90 03/25/20 11:02 71 26 143/78 (99) 100 03/25/20 11:00 26 147/76 Endotracheal Tube 90 03/25/20 11:00 147/76 03/25/20 10:30 73 26 143/82 (102) 100 03/25/20 10:30 75 137/81 (99) 100 03/25/20 10:00 79 143/82 (102) 100 03/25/20 10:00 26 143/82 Endotracheal Tube 90 03/25/20 10:00 143/82 03/25/20 09:30 73 161/84 (109) 100 03/25/20 09:00 69 155/78 (103) 100 03/25/20 09:00 26 161/84 Endotracheal Tube 90 03/25/20 08:59 96/60 03/25/20 08:30 72 96/60 (72) 100 03/25/20 08:00 90 03/25/20 08:00 Mechanical Ventilator Mechanical Ventilator 03/25/20 08:00 26 96/60 Endotracheal Tube 90 03/25/20 08:00 96/60 03/25/20 08:00 98.7 73 126/68 (87) 100 03/25/20 07:34 70 03/25/20 07:12 63 26 90 03/25/20 07:00 70 148/71 (96) 100 03/25/20 06:30 73 169/82 (111) 100 03/25/20 06:30 26 169/82 Mechanical Ventilator 90 03/25/20 06:30 169/82 03/25/20 06:00 72 166/88 (114) 100 03/25/20 05:44 26 164/85 Mechanical Ventilator 90 03/25/20 05:44 164/85 03/25/20 05:30 78 164/85 (111) 100 03/25/20 05:00 76 162/82 (108) 99 03/25/20 04:30 70 127/67 (87) 98 03/25/20 04:19 26 127/67 Mechanical Ventilator 90 03/25/20 04:19 163/83 03/25/20 04:00 72 03/25/20 04:00 Mechanical Ventilator Mechanical Ventilator 03/25/20 04:00 90 03/25/20 04:00 99.0 73 163/83 (109) 96 03/25/20 03:30 76 166/80 (108) 97 03/25/20 03:09 75 28 90 03/25/20 03:00 26 166/80 Mechanical Ventilator 90 03/25/20 03:00 166/80 03/25/20 03:00 75 26 164/82 (109) 96 03/25/20 02:30 75 164/82 (109) 96 03/25/20 02:00 26 161/80 Mechanical Ventilator 90 03/25/20 02:00 161/80 03/25/20 02:00 75 162/83 (109) 96 03/25/20 01:30 74 162/79 (106) 96 03/25/20 01:00 96 158/85 (109) 92 03/25/20 01:00 26 162/79 Mechanical Ventilator 80 03/25/20 01:00 162/79 03/25/20 00:46 110/80 03/25/20 00:30 103 15 159/90 (113) 89 03/25/20 00:28 26 140/85 Mechanical Ventilator 80 03/25/20 00:00 90 03/25/20 00:00 Mechanical Ventilator Mechanical Ventilator 03/25/20 00:00 77 03/25/20 00:00 100.2 102 30 137/115 (122) 86 03/25/20 00:00 26 147/101 Mechanical Ventilator 80 03/25/20 00:00 147/101 03/24/20 23:30 96 25 138/114 (122) 89 03/24/20 23:22 102 27 60 03/24/20 23:00 25 111/93 Mechanical Ventilator 80 03/24/20 23:00 111/93 03/24/20 23:00 94 23 120/50 (73) 93 03/24/20 22:30 105 24 93/38 (56) 88 03/24/20 22:00 26 157/98 Mechanical Ventilator 80 03/24/20 22:00 157/98 03/24/20 22:00 80 03/24/20 22:00 89 18 146/91 (109) 95 03/24/20 21:57 76/49 03/24/20 21:30 63 26 176/90 (118) 91 03/24/20 21:00 26 177/86 Mechanical Ventilator 60 03/24/20 21:00 180/89 03/24/20 21:00 177/86 03/24/20 21:00 66 26 176/91 (119) 93 03/24/20 20:30 70 25 178/89 (118) 94 03/24/20 20:00 98.4 67 26 169/81 (110) 89 03/24/20 20:00 98 03/24/20 20:00 26 178/86 Mechanical Ventilator 60 03/24/20 20:00 178/86 03/24/20 20:00 Mechanical Ventilator Mechanical Ventilator 03/24/20 20:00 70 03/24/20 19:23 59 26 60 03/24/20 19:00 26 113/60 Mechanical Ventilator 60 03/24/20 19:00 113/60 03/24/20 18:45 60 26 54/24 (34) 95 03/24/20 18:30 26 Mechanical Ventilator 60 03/24/20 18:30 54/24 03/24/20 18:30 63 26 58/25 (36) 94 03/24/20 18:15 81 26 118/55 (76) 91 03/24/20 18:00 93 24 120/56 (77) 90 03/24/20 18:00 26 120/56 Mechanical Ventilator 60 03/24/20 18:00 26 Mechanical Ventilator 60 03/24/20 17:45 100 22 165/82 (109) 92 03/24/20 17:38 26 174/72 Mechanical Ventilator 60 03/24/20 17:30 26 165/82 Mechanical Ventilator 60 03/24/20 17:30 99 20 174/72 (106) 89 03/24/20 17:15 100 19 179/85 (116) 91 03/24/20 17:00 26 Mechanical Ventilator 60 03/24/20 17:00 26 166/88 Mechanical Ventilator 60 03/24/20 17:00 174/85 03/24/20 17:00 100 19 166/88 (114) 92 03/24/20 16:56 98 29 60 03/24/20 16:45 91 21 172/85 (114) 88 03/24/20 16:30 104 21 173/100 (124) 92 03/24/20 16:15 96 21 163/98 (119) 90 03/24/20 16:00 90 03/24/20 16:00 Mechanical Ventilator Mechanical Ventilator 03/24/20 16:00 26 Mechanical Ventilator 60 03/24/20 16:00 26 172/73 Mechanical Ventilator 60 03/24/20 16:00 172/73 03/24/20 16:00 99.5 103 18 173/87 (115) 90 03/24/20 15:53 60 03/24/20 15:45 101 25 172/73 (106) 92 03/24/20 15:30 105 21 123/63 (83) 93 03/24/20 15:15 102 21 172/75 (107) 86 03/24/20 15:02 99 29 60 03/24/20 15:00 106 18 153/70 (97) 03/24/20 15:00 26 Mechanical Ventilator 50 03/24/20 15:00 26 172/75 Mechanical Ventilator 50 03/24/20 15:00 172/75 03/24/20 14:45 106 18 155/73 (100) 03/24/20 14:30 106 21 170/77 (108) 03/24/20 14:15 107 18 157/64 (95) 03/24/20 14:00 106 18 154/86 (108) 98 03/24/20 14:00 26 Mechanical Ventilator 50 03/24/20 14:00 26 154/86 Mechanical Ventilator 50 03/24/20 14:00 154/86 03/24/20 13:45 106 19 168/73 (104) 82 03/24/20 13:30 107 22 152/80 (104) 94 03/24/20 13:15 107 18 131/68 (89) 97 03/24/20 13:02 111 32 50 03/24/20 13:00 26 Mechanical Ventilator 50 03/24/20 13:00 26 137/90 Mechanical Ventilator 50 03/24/20 13:00 152/80 03/24/20 13:00 106 23 137/90 (106) 97 03/24/20 12:45 107 29 150/74 (99) 95 Intake and Output 03/25/20 03/26/20 19:00 07:00 Intake Total 1442.140 ml 1003.963 ml Output Total 2325 ml 2050 ml Balance -882.860 ml -1046.037 ml Free Water 120 ml IV Total 1022.140 ml 463.963 ml Tube Feeding 420 ml 420 ml Output Urine Total 2225 ml 2050 ml Stool Total 100 ml Labs Test 03/24/20 05:00 03/24/20 05:10 03/25/20 04:00 03/25/20 11:54 Magnesium Level 2.4 MG/DL (1.8-2.4) 2.1 MG/DL (1.8-2.4) White Blood Count 13.6 K/UL (4.8-10.8) 21.1 K/UL (4.8-10.8) Red Blood Count 3.00 M/UL (4.20-5.40) 2.90 M/UL (4.20-5.40) Hemoglobin 10.2 G/DL (12.0-16.0) 10.0 G/DL (12.0-16.0) Hematocrit 30.4 % (37.0-47.0) 30.0 % (37.0-47.0) Mean Corpuscular Volume 101 FL (80-99) 103 FL (80-99) Mean Corpuscular Hemoglobin 34.0 PG (27.0-31.0) 34.6 PG (27.0-31.0) Mean Corpuscular Hemoglobin Concent 33.6 G/DL (32.0-36.0) 33.4 G/DL (32.0-36.0) Red Cell Distribution Width 16.7 % (11.6-14.8) 19.3 % (11.6-14.8) Platelet Count 192 K/UL (150-450) 187 K/UL (150-450) Mean Platelet Volume 6.3 FL (6.5-10.1) 5.7 FL (6.5-10.1) Neutrophils (%) (Auto) % (45.0-75.0) % (45.0-75.0) Lymphocytes (%) (Auto) % (20.0-45.0) % (20.0-45.0) Monocytes (%) (Auto) % (1.0-10.0) % (1.0-10.0) Eosinophils (%) (Auto) % (0.0-3.0) % (0.0-3.0) Basophils (%) (Auto) % (0.0-2.0) % (0.0-2.0) Sodium Level 143 MMOL/L (136-145) 144 MMOL/L (136-145) Potassium Level 3.4 MMOL/L (3.5-5.1) 3.6 MMOL/L (3.5-5.1) Chloride Level 100 MMOL/L (98-107) 98 MMOL/L (98-107) Carbon Dioxide Level 40 MMOL/L (21-32) 41 MMOL/L (21-32) Anion Gap 1 mmol/L (5-15) 5 mmol/L (5-15) Blood Urea Nitrogen 22 mg/dL (7-18) 20 mg/dL (7-18) Creatinine 0.7 MG/DL (0.55-1.30) 0.7 MG/DL (0.55-1.30) Estimat Glomerular Filtration Rate > 60 mL/min (>60) > 60 mL/min (>60) Glucose Level 249 MG/DL (74-106) 268 MG/DL (74-106) Calcium Level 8.9 MG/DL (8.5-10.1) 8.7 MG/DL (8.5-10.1) Total Bilirubin 2.1 MG/DL (0.2-1.0) 2.7 MG/DL (0.2-1.0) Direct Bilirubin 1.2 MG/DL (0.0-0.3) 1.4 MG/DL (0.0-0.3) Aspartate Amino Transf (AST/SGOT) 206 U/L (15-37) 192 U/L (15-37) Alanine Aminotransferase (ALT/SGPT) 129 U/L (12-78) 143 U/L (12-78) Alkaline Phosphatase 371 U/L (46-116) 297 U/L (46-116) Ammonia 108 umol/L (11-32) Total Protein 8.8 G/DL (6.4-8.2) 8.5 G/DL (6.4-8.2) Albumin 2.7 G/DL (3.4-5.0) 2.7 G/DL (3.4-5.0) Globulin 6.1 g/dL 5.8 g/dL Albumin/Globulin Ratio 0.4 (1.0-2.7) 0.5 (1.0-2.7) Triglycerides Level 203 MG/DL (30-150) Lipase 361 U/L (73-393) Differential Total Cells Counted 100 Neutrophils % (Manual) 89 % (45-75) Lymphocytes % (Manual) 3 % (20-45) Monocytes % (Manual) 8 % (1-10) Eosinophils % (Manual) 0 % (0-3) Basophils % (Manual) 0 % (0-2) Band Neutrophils 0 % (0-8) Platelet Estimate Adequate Platelet Morphology Normal Hypochromasia 1+ Anisocytosis 2+ Macrocytosis 1+ Phosphorus Level 2.3 MG/DL (2.5-4.9) C-Reactive Protein, Quantitative 4.1 mg/dL (0.00-0.90) Pro-B-Type Natriuretic Peptide 28233 pg/mL (0-125) Arterial Blood pH 7.500 (7.350-7.450) Arterial Blood Partial Pressure CO2 56.0 mmHg (35.0-45.0) Arterial Blood Partial Pressure O2 234.9 mmHg (75.0-100.0) Arterial Blood HCO3 42.7 mmol/L (22.0-26.0) Arterial Blood Oxygen Saturation 99.2 % (95-100) Arterial Blood Base Excess 17.3 (-2-2) Joaquin Test Positive Test 03/26/20 04:00 03/26/20 07:32 03/26/20 08:30 White Blood Count 14.6 K/UL (4.8-10.8) Red Blood Count 2.79 M/UL (4.20-5.40) Hemoglobin 9.5 G/DL (12.0-16.0) Hematocrit 29.1 % (37.0-47.0) Mean Corpuscular Volume 104 FL (80-99) Mean Corpuscular Hemoglobin 34.1 PG (27.0-31.0) Mean Corpuscular Hemoglobin Concent 32.7 G/DL (32.0-36.0) Red Cell Distribution Width 19.7 % (11.6-14.8) Platelet Count 166 K/UL (150-450) Mean Platelet Volume 7.1 FL (6.5-10.1) Neutrophils (%) (Auto) % (45.0-75.0) Lymphocytes (%) (Auto) % (20.0-45.0) Monocytes (%) (Auto) % (1.0-10.0) Eosinophils (%) (Auto) % (0.0-3.0) Basophils (%) (Auto) % (0.0-2.0) Differential Total Cells Counted 100 Neutrophils % (Manual) 90 % (45-75) Lymphocytes % (Manual) 5 % (20-45) Monocytes % (Manual) 5 % (1-10) Eosinophils % (Manual) 0 % (0-3) Basophils % (Manual) 0 % (0-2) Band Neutrophils 0 % (0-8) Platelet Estimate Adequate Platelet Morphology Normal Hypochromasia 1+ Anisocytosis 1+ Macrocytosis 1+ Sodium Level 154 MMOL/L (136-145) Potassium Level 4.5 MMOL/L (3.5-5.1) Chloride Level 109 MMOL/L (98-107) Carbon Dioxide Level > 45 MMOL/L (21-32) Blood Urea Nitrogen 25 mg/dL (7-18) Creatinine 0.8 MG/DL (0.55-1.30) Estimat Glomerular Filtration Rate > 60 mL/min (>60) Glucose Level 310 MG/DL (74-106) Calcium Level 8.7 MG/DL (8.5-10.1) Phosphorus Level 3.3 MG/DL (2.5-4.9) Magnesium Level 2.4 MG/DL (1.8-2.4) Total Bilirubin 2.6 MG/DL (0.2-1.0) Direct Bilirubin 1.6 MG/DL (0.0-0.3) Aspartate Amino Transf (AST/SGOT) 203 U/L (15-37) Alanine Aminotransferase (ALT/SGPT) 161 U/L (12-78) Alkaline Phosphatase 223 U/L (46-116) C-Reactive Protein, Quantitative 2.8 mg/dL (0.00-0.90) Pro-B-Type Natriuretic Peptide 22429 pg/mL (0-125) Total Protein 7.6 G/DL (6.4-8.2) Albumin 2.4 G/DL (3.4-5.0) Globulin 5.2 g/dL Albumin/Globulin Ratio 0.5 (1.0-2.7) Arterial Blood pH 7.439 (7.350-7.450) Arterial Blood Partial Pressure CO2 67.6 mmHg (35.0-45.0) Arterial Blood Partial Pressure O2 104.7 mmHg (75.0-100.0) Arterial Blood HCO3 44.7 mmol/L (22.0-26.0) Arterial Blood Oxygen Saturation 96.6 % (95-100) Arterial Blood Base Excess 17.8 (-2-2) Joaquin Test Positive Vancomycin Level Trough 17.1 ug/mL (5.0-12.0) Height (Feet): 5 Height (Inches): 1.00 Weight (Pounds): 225 Objective Physical Exam: Vitals: reviewed General: NAD HEENT: nc, at Neck: supple Chest: crackles b/l, mech breath sounds ++intubated Cardiovascular: RRR, no s3, s4 EXT ++ Significant edema and erythema bilateral lower extremity, patient also has blistering on both feet given the edema, whittish overcrust/crusting++ Neurologic: sedated Skin: other - As above Brett Mcclain MD March 26, 2020 12:45
--- NOTE | 2020-03-26 12:55 | GI Progress Note ---
Assessment/Plan Problems: (1) Macrocytic anemia ICD Codes: D53.9 - Nutritional anemia, unspecified SNOMED: [id number] (2) Respiratory distress ICD Codes: R06.03 - Acute respiratory distress SNOMED: 557591363 Status: unchanged Status Narrative Discussed with Dr. Spicer. Assessment/Plan macrocytic anemia elevated LFTS cirrhosis cellulitis elevated Ammonia levels respiratory distress>>> now failure COVID positive pna NGTF abd us>> reviewed fu stool ob>>>neg GI procedures if needed abx per id hepatitis panel>>>>>positive for hep C>>> needs out patient fu poor prognosis continue lactulose + Xifaxan reglan will fu The patient was seen and examined at bedside and all new and available data was reviewed in the patients chart. I agree with the above findings, impression and plan. (Patient seen earlier today. Signature stamp does not reflect patient encounter time.). - Tam Spicer MD Subjective Subjective limited Objective Last 24 Hour Vital Signs Date Time Temp Pulse Resp B/P (MAP) Pulse Ox O2 Delivery O2 Flow Rate FiO2 03/26/20 12:30 93 31 123/70 (87) 99 03/26/20 12:00 94 03/26/20 12:00 94 24 116/69 (85) 99 03/26/20 11:30 94 24 123/70 (87) 99 03/26/20 11:00 95 24 119/73 (88) 99 03/26/20 11:00 95 31 119/73 (88) 99 03/26/20 11:00 24 Endotracheal Tube 60 03/26/20 11:00 116/69 03/26/20 10:45 94 24 117/67 (84) 99 03/26/20 10:40 93 24 40 03/26/20 10:30 94 24 123/71 (88) 99 03/26/20 10:15 93 24 133/75 (94) 99 03/26/20 10:07 85/47 03/26/20 10:00 24 Endotracheal Tube 60 03/26/20 10:00 92 24 85/47 (60) 97 03/26/20 09:30 93 24 97/59 (72) 98 03/26/20 09:00 24 Endotracheal Tube 60 03/26/20 09:00 95/58 03/26/20 09:00 94 24 117/72 (87) 99 03/26/20 08:30 94 25 101/76 (84) 98 03/26/20 08:00 Mechanical Ventilator Mechanical Ventilator 03/26/20 08:00 99.2 94 24 94/58 (70) 98 03/26/20 08:00 24 Endotracheal Tube 60 03/26/20 08:00 97/60 03/26/20 08:00 60 03/26/20 08:00 94 03/26/20 07:30 94 25 100/66 (77) 98 03/26/20 07:05 94 24 40 03/26/20 07:00 93 24 114/66 (82) 98 03/26/20 07:00 24 Endotracheal Tube 60 03/26/20 07:00 102/62 03/26/20 06:45 93 24 91/54 (66) 90 03/26/20 06:36 93 24 87/51 (63) 90 03/26/20 06:35 94 24 85/50 (62) 90 03/26/20 06:30 94 24 85/49 (61) 90 03/26/20 06:15 94 24 89/51 (64) 90 03/26/20 06:00 94 24 107/69 (82) 97 03/26/20 05:30 95 24 112/69 (83) 97 03/26/20 05:00 95 24 119/71 (87) 98 03/26/20 05:00 24 Mechanical Ventilator 60 03/26/20 05:00 112/69 03/26/20 04:38 109/63 03/26/20 04:30 95 24 119/67 (84) 98 03/26/20 04:00 98.1 95 24 110/68 (82) 96 03/26/20 04:00 85 03/26/20 04:00 Mechanical Ventilator Mechanical Ventilator 03/26/20 04:00 24 Mechanical Ventilator 60 03/26/20 04:00 112/63 03/26/20 04:00 60 03/26/20 03:00 97 24 110/69 (83) 91 03/26/20 03:00 24 Mechanical Ventilator 60 03/26/20 03:00 136/69 03/26/20 02:30 97 24 120/73 (89) 90 03/26/20 02:00 98 25 128/72 (90) 90 03/26/20 02:00 24 Mechanical Ventilator 40 03/26/20 02:00 125/63 03/26/20 01:39 100 24 40 03/26/20 01:30 99 24 123/73 (90) 90 03/26/20 01:00 101 24 111/64 (80) 89 03/26/20 01:00 24 Mechanical Ventilator 40 03/26/20 01:00 100/56 03/26/20 00:45 101 24 109/63 (78) 96 03/26/20 00:38 102 24 91/49 (63) 96 03/26/20 00:36 101 24 74/41 (52) 96 03/26/20 00:30 101 24 67/40 (49) 92 03/26/20 00:15 87 24 90/43 (59) 96 03/26/20 00:00 97.5 71 24 95/44 (61) 96 03/26/20 00:00 Mechanical Ventilator Mechanical Ventilator 03/26/20 00:00 24 Mechanical Ventilator 40 03/26/20 00:00 77/39 03/26/20 00:00 40 03/26/20 00:00 102 03/25/20 23:45 72 24 120/59 (79) 92 03/25/20 23:30 73 24 132/62 (85) 96 03/25/20 23:15 74 24 113/54 (73) 100 03/25/20 23:00 64 24 110/57 (74) 100 03/25/20 23:00 24 Mechanical Ventilator 40 03/25/20 23:00 132/62 03/25/20 22:52 62 26 40 03/25/20 22:30 62 24 106/47 (66) 100 03/25/20 22:15 61 24 101/50 (67) 100 03/25/20 22:06 24 Mechanical Ventilator 40 03/25/20 22:00 98.1 60 24 102/50 (67) 97 03/25/20 22:00 99/49 03/25/20 21:45 58 24 102/56 (71) 97 03/25/20 21:30 59 24 109/59 (76) 97 03/25/20 21:15 77 24 106/53 (70) 95 03/25/20 21:00 76 24 95/52 (66) 93 03/25/20 21:00 104/59 03/25/20 20:45 69 24 96/49 (65) 95 03/25/20 20:30 63 24 97/49 (65) 98 03/25/20 20:15 58 24 128/71 (90) 98 03/25/20 20:11 147/77 03/25/20 20:00 61 03/25/20 20:00 40 03/25/20 20:00 97.3 62 24 163/84 (110) 98 03/25/20 20:00 Mechanical Ventilator Mechanical Ventilator 03/25/20 19:45 56 24 172/91 (118) 97 03/25/20 19:34 49 24 132/63 (86) 96 03/25/20 19:30 62 24 74/34 (47) 96 03/25/20 19:17 57 28 100 Mechanical Ventilator 40 03/25/20 19:16 57 28 40 03/25/20 19:15 76 24 86/45 (59) 98 03/25/20 19:00 20 147/77 Endotracheal Tube 40 03/25/20 19:00 147/77 03/25/20 19:00 56 28 147/77 (100) 97 03/25/20 18:45 58 153/66 (95) 99 03/25/20 18:30 58 12 139/69 (92) 98 03/25/20 18:15 61 20 138/71 (93) 98 03/25/20 18:00 62 21 137/70 (92) 99 03/25/20 18:00 20 138/68 Endotracheal Tube 40 03/25/20 18:00 138/68 03/25/20 17:46 99.8 03/25/20 17:30 61 21 138/68 (91) 98 03/25/20 17:29 122/67 03/25/20 17:00 100.9 76 28 122/67 (85) 100 03/25/20 17:00 20 122/67 Endotracheal Tube 40 03/25/20 16:30 78 21 157/75 (102) 97 03/25/20 16:00 40 03/25/20 16:00 20 111/53 Endotracheal Tube 40 03/25/20 16:00 Mechanical Ventilator Mechanical Ventilator 03/25/20 16:00 70 21 97/27 (50) 96 03/25/20 16:00 70 03/25/20 15:30 76 20 135/61 (85) 95 03/25/20 15:09 71 30 40 03/25/20 15:00 21 135/61 Endotracheal Tube 40 03/25/20 15:00 135/61 03/25/20 15:00 76 26 135/61 (85) 95 03/25/20 14:30 71 26 90/38 (55) 96 03/25/20 14:00 72 24 79/34 (49) 100 03/25/20 14:00 28 79/34 Endotracheal Tube 40 03/25/20 14:00 79/34 03/25/20 13:30 69 26 130/74 (92) 100 03/25/20 13:07 26 127/73 Endotracheal Tube 93.0 90 03/25/20 13:05 100.1 03/25/20 13:00 100.5 68 26 127/73 (91) 100 03/25/20 13:00 26 123/73 Endotracheal Tube 90 03/25/20 13:00 26 130/74 Endotracheal Tube 03/25/20 13:00 130/74 03/25/20 13:00 130/74 Intake and Output 03/25/20 03/26/20 19:00 07:00 Intake Total 1442.140 ml 1003.963 ml Output Total 2325 ml 2050 ml Balance -882.860 ml -1046.037 ml Free Water 120 ml IV Total 1022.140 ml 463.963 ml Tube Feeding 420 ml 420 ml Output Urine Total 2225 ml 2050 ml Stool Total 100 ml Laboratory Tests Test 03/26/20 04:00 03/26/20 07:32 03/26/20 08:30 White Blood Count 14.6 K/UL (4.8-10.8) H Red Blood Count 2.79 M/UL (4.20-5.40) L Hemoglobin 9.5 G/DL (12.0-16.0) L Hematocrit 29.1 % (37.0-47.0) L Mean Corpuscular Volume 104 FL (80-99) H Mean Corpuscular Hemoglobin 34.1 PG (27.0-31.0) H Mean Corpuscular Hemoglobin Concent 32.7 G/DL (32.0-36.0) Red Cell Distribution Width 19.7 % (11.6-14.8) H Platelet Count 166 K/UL (150-450) Mean Platelet Volume 7.1 FL (6.5-10.1) Neutrophils (%) (Auto) % (45.0-75.0) Lymphocytes (%) (Auto) % (20.0-45.0) Monocytes (%) (Auto) % (1.0-10.0) Eosinophils (%) (Auto) % (0.0-3.0) Basophils (%) (Auto) % (0.0-2.0) Differential Total Cells Counted 100 Neutrophils % (Manual) 90 % (45-75) H Lymphocytes % (Manual) 5 % (20-45) L Monocytes % (Manual) 5 % (1-10) Eosinophils % (Manual) 0 % (0-3) Basophils % (Manual) 0 % (0-2) Band Neutrophils 0 % (0-8) Platelet Estimate Adequate Platelet Morphology Normal Hypochromasia 1+ Anisocytosis 1+ Macrocytosis 1+ Sodium Level 154 MMOL/L (136-145) #H Potassium Level 4.5 MMOL/L (3.5-5.1) Chloride Level 109 MMOL/L (98-107) H Carbon Dioxide Level > 45 MMOL/L (21-32) *H Blood Urea Nitrogen 25 mg/dL (7-18) H Creatinine 0.8 MG/DL (0.55-1.30) Estimat Glomerular Filtration Rate > 60 mL/min (>60) Glucose Level 310 MG/DL (74-106) H Calcium Level 8.7 MG/DL (8.5-10.1) Phosphorus Level 3.3 MG/DL (2.5-4.9) Magnesium Level 2.4 MG/DL (1.8-2.4) Total Bilirubin 2.6 MG/DL (0.2-1.0) H Direct Bilirubin 1.6 MG/DL (0.0-0.3) H Aspartate Amino Transf (AST/SGOT) 203 U/L (15-37) H Alanine Aminotransferase (ALT/SGPT) 161 U/L (12-78) H Alkaline Phosphatase 223 U/L (46-116) H C-Reactive Protein, Quantitative 2.8 mg/dL (0.00-0.90) H Pro-B-Type Natriuretic Peptide 07691 pg/mL (0-125) H Total Protein 7.6 G/DL (6.4-8.2) Albumin 2.4 G/DL (3.4-5.0) L Globulin 5.2 g/dL Albumin/Globulin Ratio 0.5 (1.0-2.7) L Arterial Blood pH 7.439 (7.350-7.450) Arterial Blood Partial Pressure CO2 67.6 mmHg (35.0-45.0) *H Arterial Blood Partial Pressure O2 104.7 mmHg (75.0-100.0) H Arterial Blood HCO3 44.7 mmol/L (22.0-26.0) *H Arterial Blood Oxygen Saturation 96.6 % (95-100) Arterial Blood Base Excess 17.8 (-2-2) *H Joaquin Test Positive Vancomycin Level Trough 17.1 ug/mL (5.0-12.0) H Height (Feet): 5 Height (Inches): 1.00 Weight (Pounds): 225 General Appearance: no apparent distress Cardiovascular: normal rate Respiratory/Chest: no respiratory distress Abdominal Exam: soft Kym Snow [employer] March 26, 2020 12:55
--- NOTE | 2020-03-26 17:14 | Surgery Progress Note ---
Surgery Progress Note Subjective Additional Comments weaning vent edema significantly improved slowly showing signs of improvement Objective Last 24 Hour Vital Signs Date Time Temp Pulse Resp B/P (MAP) Pulse Ox O2 Delivery O2 Flow Rate FiO2 03/26/20 17:04 91 24 104/68 (80) 99 03/26/20 16:40 117/75 03/26/20 16:30 98.5 89 27 112/72 (85) 99 03/26/20 16:00 Mechanical Ventilator Mechanical Ventilator 03/26/20 16:00 24 Endotracheal Tube 60 03/26/20 16:00 117/75 03/26/20 16:00 60 03/26/20 16:00 89 27 117/75 (89) 99 03/26/20 16:00 89 03/26/20 15:45 89 24 124/84 (97) 99 03/26/20 15:30 90 24 111/69 (83) 99 03/26/20 15:30 89 24 124/84 (97) 99 03/26/20 15:15 90 24 106/66 (79) 99 03/26/20 15:05 88 24 40 03/26/20 15:00 24 Endotracheal Tube 60 03/26/20 15:00 106/66 03/26/20 15:00 91 24 141/84 (103) 100 03/26/20 14:30 91 24 139/81 (100) 100 03/26/20 14:00 24 Endotracheal Tube 60 03/26/20 14:00 135/42 03/26/20 14:00 91 24 141/79 (99) 99 03/26/20 13:30 92 24 125/76 (92) 100 03/26/20 13:00 24 Endotracheal Tube 60 03/26/20 13:00 124/74 03/26/20 13:00 93 24 124/73 (90) 99 03/26/20 12:30 93 31 123/70 (87) 99 03/26/20 12:00 Mechanical Ventilator Mechanical Ventilator 03/26/20 12:00 94 03/26/20 12:00 24 Endotracheal Tube 60 03/26/20 12:00 112/63 03/26/20 12:00 60 03/26/20 12:00 94 24 116/69 (85) 99 03/26/20 11:30 94 24 123/70 (87) 99 03/26/20 11:00 95 24 119/73 (88) 99 03/26/20 11:00 95 31 119/73 (88) 99 03/26/20 11:00 24 Endotracheal Tube 60 03/26/20 11:00 116/69 03/26/20 10:45 94 24 117/67 (84) 99 03/26/20 10:40 93 24 40 03/26/20 10:30 94 24 123/71 (88) 99 03/26/20 10:15 93 24 133/75 (94) 99 03/26/20 10:07 85/47 03/26/20 10:00 24 Endotracheal Tube 60 03/26/20 10:00 92 24 85/47 (60) 97 03/26/20 09:30 93 24 97/59 (72) 98 03/26/20 09:00 24 Endotracheal Tube 60 03/26/20 09:00 95/58 03/26/20 09:00 94 24 117/72 (87) 99 03/26/20 08:30 94 25 101/76 (84) 98 03/26/20 08:00 Mechanical Ventilator Mechanical Ventilator 03/26/20 08:00 99.2 94 24 94/58 (70) 98 03/26/20 08:00 24 Endotracheal Tube 60 03/26/20 08:00 97/60 03/26/20 08:00 60 03/26/20 08:00 94 03/26/20 07:30 94 25 100/66 (77) 98 03/26/20 07:05 94 24 40 03/26/20 07:00 93 24 114/66 (82) 98 03/26/20 07:00 24 Endotracheal Tube 60 03/26/20 07:00 102/62 03/26/20 06:45 93 24 91/54 (66) 90 03/26/20 06:36 93 24 87/51 (63) 90 03/26/20 06:35 94 24 85/50 (62) 90 03/26/20 06:30 94 24 85/49 (61) 90 03/26/20 06:15 94 24 89/51 (64) 90 03/26/20 06:00 94 24 107/69 (82) 97 03/26/20 05:30 95 24 112/69 (83) 97 03/26/20 05:00 95 24 119/71 (87) 98 03/26/20 05:00 24 Mechanical Ventilator 60 03/26/20 05:00 112/69 03/26/20 04:38 109/63 03/26/20 04:30 95 24 119/67 (84) 98 03/26/20 04:00 98.1 95 24 110/68 (82) 96 03/26/20 04:00 85 03/26/20 04:00 Mechanical Ventilator Mechanical Ventilator 03/26/20 04:00 24 Mechanical Ventilator 60 03/26/20 04:00 112/63 03/26/20 04:00 60 03/26/20 03:00 97 24 110/69 (83) 91 03/26/20 03:00 24 Mechanical Ventilator 60 03/26/20 03:00 136/69 03/26/20 02:30 97 24 120/73 (89) 90 03/26/20 02:00 98 25 128/72 (90) 90 03/26/20 02:00 24 Mechanical Ventilator 40 03/26/20 02:00 125/63 03/26/20 01:39 100 24 40 03/26/20 01:30 99 24 123/73 (90) 90 03/26/20 01:00 101 24 111/64 (80) 89 03/26/20 01:00 24 Mechanical Ventilator 40 03/26/20 01:00 100/56 03/26/20 00:45 101 24 109/63 (78) 96 03/26/20 00:38 102 24 91/49 (63) 96 03/26/20 00:36 101 24 74/41 (52) 96 03/26/20 00:30 101 24 67/40 (49) 92 03/26/20 00:15 87 24 90/43 (59) 96 03/26/20 00:00 97.5 71 24 95/44 (61) 96 03/26/20 00:00 Mechanical Ventilator Mechanical Ventilator 03/26/20 00:00 24 Mechanical Ventilator 40 03/26/20 00:00 77/39 03/26/20 00:00 40 03/26/20 00:00 102 03/25/20 23:45 72 24 120/59 (79) 92 03/25/20 23:30 73 24 132/62 (85) 96 03/25/20 23:15 74 24 113/54 (73) 100 03/25/20 23:00 64 24 110/57 (74) 100 03/25/20 23:00 24 Mechanical Ventilator 40 03/25/20 23:00 132/62 03/25/20 22:52 62 26 40 03/25/20 22:30 62 24 106/47 (66) 100 03/25/20 22:15 61 24 101/50 (67) 100 03/25/20 22:06 24 Mechanical Ventilator 40 03/25/20 22:00 98.1 60 24 102/50 (67) 97 03/25/20 22:00 99/49 03/25/20 21:45 58 24 102/56 (71) 97 03/25/20 21:30 59 24 109/59 (76) 97 03/25/20 21:15 77 24 106/53 (70) 95 03/25/20 21:00 76 24 95/52 (66) 93 03/25/20 21:00 104/59 03/25/20 20:45 69 24 96/49 (65) 95 03/25/20 20:30 63 24 97/49 (65) 98 03/25/20 20:15 58 24 128/71 (90) 98 03/25/20 20:11 147/77 03/25/20 20:00 61 03/25/20 20:00 40 03/25/20 20:00 97.3 62 24 163/84 (110) 98 03/25/20 20:00 Mechanical Ventilator Mechanical Ventilator 03/25/20 19:45 56 24 172/91 (118) 97 03/25/20 19:34 49 24 132/63 (86) 96 03/25/20 19:30 62 24 74/34 (47) 96 03/25/20 19:17 57 28 100 Mechanical Ventilator 40 03/25/20 19:16 57 28 40 03/25/20 19:15 76 24 86/45 (59) 98 03/25/20 19:00 20 147/77 Endotracheal Tube 40 03/25/20 19:00 147/77 03/25/20 19:00 56 28 147/77 (100) 97 03/25/20 18:45 58 153/66 (95) 99 03/25/20 18:30 58 12 139/69 (92) 98 03/25/20 18:15 61 20 138/71 (93) 98 03/25/20 18:00 62 21 137/70 (92) 99 03/25/20 18:00 20 138/68 Endotracheal Tube 40 03/25/20 18:00 138/68 03/25/20 17:46 99.8 03/25/20 17:30 61 21 138/68 (91) 98 03/25/20 17:29 122/67 I&O Intake and Output 03/25/20 03/26/20 19:00 07:00 Intake Total 1442.140 ml 1003.963 ml Output Total 2325 ml 2050 ml Balance -882.860 ml -1046.037 ml Free Water 120 ml IV Total 1022.140 ml 463.963 ml Tube Feeding 420 ml 420 ml Output Urine Total 2225 ml 2050 ml Stool Total 100 ml Dressing: dry Wound: clean Cardiovascular: RSR Respiratory: decreased breath sounds Abdomen: soft, non-tender, present bowel sounds, non-distended Extremities: edema, no cyanosis, other Laboratory Tests Test 03/26/20 04:00 03/26/20 07:32 03/26/20 08:30 White Blood Count 14.6 K/UL (4.8-10.8) H Red Blood Count 2.79 M/UL (4.20-5.40) L Hemoglobin 9.5 G/DL (12.0-16.0) L Hematocrit 29.1 % (37.0-47.0) L Mean Corpuscular Volume 104 FL (80-99) H Mean Corpuscular Hemoglobin 34.1 PG (27.0-31.0) H Mean Corpuscular Hemoglobin Concent 32.7 G/DL (32.0-36.0) Red Cell Distribution Width 19.7 % (11.6-14.8) H Platelet Count 166 K/UL (150-450) Mean Platelet Volume 7.1 FL (6.5-10.1) Neutrophils (%) (Auto) % (45.0-75.0) Lymphocytes (%) (Auto) % (20.0-45.0) Monocytes (%) (Auto) % (1.0-10.0) Eosinophils (%) (Auto) % (0.0-3.0) Basophils (%) (Auto) % (0.0-2.0) Differential Total Cells Counted 100 Neutrophils % (Manual) 90 % (45-75) H Lymphocytes % (Manual) 5 % (20-45) L Monocytes % (Manual) 5 % (1-10) Eosinophils % (Manual) 0 % (0-3) Basophils % (Manual) 0 % (0-2) Band Neutrophils 0 % (0-8) Platelet Estimate Adequate Platelet Morphology Normal Hypochromasia 1+ Anisocytosis 1+ Macrocytosis 1+ Sodium Level 154 MMOL/L (136-145) #H Potassium Level 4.5 MMOL/L (3.5-5.1) Chloride Level 109 MMOL/L (98-107) H Carbon Dioxide Level > 45 MMOL/L (21-32) *H Blood Urea Nitrogen 25 mg/dL (7-18) H Creatinine 0.8 MG/DL (0.55-1.30) Estimat Glomerular Filtration Rate > 60 mL/min (>60) Glucose Level 310 MG/DL (74-106) H Calcium Level 8.7 MG/DL (8.5-10.1) Phosphorus Level 3.3 MG/DL (2.5-4.9) Magnesium Level 2.4 MG/DL (1.8-2.4) Total Bilirubin 2.6 MG/DL (0.2-1.0) H Direct Bilirubin 1.6 MG/DL (0.0-0.3) H Aspartate Amino Transf (AST/SGOT) 203 U/L (15-37) H Alanine Aminotransferase (ALT/SGPT) 161 U/L (12-78) H Alkaline Phosphatase 223 U/L (46-116) H C-Reactive Protein, Quantitative 2.8 mg/dL (0.00-0.90) H Pro-B-Type Natriuretic Peptide 14034 pg/mL (0-125) H Total Protein 7.6 G/DL (6.4-8.2) Albumin 2.4 G/DL (3.4-5.0) L Globulin 5.2 g/dL Albumin/Globulin Ratio 0.5 (1.0-2.7) L Arterial Blood pH 7.439 (7.350-7.450) Arterial Blood Partial Pressure CO2 67.6 mmHg (35.0-45.0) *H Arterial Blood Partial Pressure O2 104.7 mmHg (75.0-100.0) H Arterial Blood HCO3 44.7 mmol/L (22.0-26.0) *H Arterial Blood Oxygen Saturation 96.6 % (95-100) Arterial Blood Base Excess 17.8 (-2-2) *H Joaquin Test Positive Vancomycin Level Trough 17.1 ug/mL (5.0-12.0) H Plan Problems: (1) Cellulitis Assessment & Plan: bilateral lower extremity cellulitis / edema chronic venous status changes dermatitis no abscess no purulent drainage ulcerations forming. keep lower extremity elevated while in bed apply skin protectant / moisturizing cream daily okay to shower okay to wrap soft after cream abx as per ID for cellulitis okay for diet duplex ordered trend labs will follow with recs thank you No evidence of deep venous thrombosis involving the visualized veins of the RIGHT lower extremity. refused eval of left COVID ++ cxr noted cont current supportive care improving labs stable improving slowly wean pressors as tolerated Patient is acutely worsened intubated on vent support 2 pressors now worsening labs worsening Prognosis is guarded we will continue with maximal support efforts weaning vent weaning pressors leukocytosis trend lft's (2) COVID-19 Assessment & Plan: see above Theron Sotomayor March 26, 2020 17:14
[2020-03-26] MEDS: Dyna-Hex 2% Top Sol 2oz TOPIC SCH (19:49)
--- NOTE | 2020-03-26 20:30 | General Progress Note ---
Assessment/Plan Problem List: (1) Cellulitis ICD Codes: L03.90 - Cellulitis, unspecified SNOMED: 134660980 Qualifiers: Qualified Codes: L03.119 - Cellulitis of unspecified part of limb Status: progressing, unchanged Assessment/Plan: dehydration malnutrtion reviewed chart afebrile metabolic conctraction cellulitis lower extremity leukocytosis elev LFT sepsis anemia.stable h/h cirrhosis elevated trop Subjective ROS Limited/Unobtainable: Yes Allergies: Coded Allergies: No Known Allergies (Unverified , 02/29/20) Objective Last 24 Hour Vital Signs Date Time Temp Pulse Resp B/P (MAP) Pulse Ox O2 Delivery O2 Flow Rate FiO2 03/26/20 20:00 60 03/26/20 20:00 Mechanical Ventilator Mechanical Ventilator 03/26/20 20:00 24 Mechanical Ventilator 60 03/26/20 20:00 105/68 03/26/20 20:00 97.7 89 24 105/68 (80) 96 03/26/20 20:00 88 03/26/20 19:30 88 24 105/64 (78) 95 03/26/20 19:10 87 24 40 03/26/20 19:00 88 24 108/65 (79) 96 03/26/20 19:00 24 Endotracheal Tube 40 03/26/20 19:00 108/65 03/26/20 18:15 88 24 94/50 (65) 94 03/26/20 18:00 24 Endotracheal Tube 40 03/26/20 18:00 94/50 03/26/20 18:00 91 24 92/54 (67) 92 03/26/20 17:34 91 24 90/54 (66) 92 03/26/20 17:04 91 24 104/68 (80) 99 03/26/20 17:00 25 Endotracheal Tube 40 03/26/20 17:00 102/64 03/26/20 16:40 117/75 03/26/20 16:30 98.5 89 27 112/72 (85) 99 03/26/20 16:00 Mechanical Ventilator Mechanical Ventilator 03/26/20 16:00 24 Endotracheal Tube 60 03/26/20 16:00 117/75 03/26/20 16:00 60 03/26/20 16:00 89 27 117/75 (89) 99 03/26/20 16:00 89 03/26/20 15:45 89 24 124/84 (97) 99 03/26/20 15:30 90 24 111/69 (83) 99 03/26/20 15:30 89 24 124/84 (97) 99 03/26/20 15:15 90 24 106/66 (79) 99 03/26/20 15:05 88 24 40 03/26/20 15:00 24 Endotracheal Tube 60 03/26/20 15:00 106/66 03/26/20 15:00 91 24 141/84 (103) 100 03/26/20 14:30 91 24 139/81 (100) 100 03/26/20 14:00 24 Endotracheal Tube 60 03/26/20 14:00 135/42 03/26/20 14:00 91 24 141/79 (99) 99 03/26/20 13:30 92 24 125/76 (92) 100 03/26/20 13:00 24 Endotracheal Tube 60 03/26/20 13:00 124/74 03/26/20 13:00 93 24 124/73 (90) 99 03/26/20 12:30 93 31 123/70 (87) 99 03/26/20 12:00 Mechanical Ventilator Mechanical Ventilator 03/26/20 12:00 94 03/26/20 12:00 24 Endotracheal Tube 60 03/26/20 12:00 112/63 03/26/20 12:00 60 03/26/20 12:00 94 24 116/69 (85) 99 03/26/20 11:30 94 24 123/70 (87) 99 03/26/20 11:00 95 24 119/73 (88) 99 03/26/20 11:00 95 31 119/73 (88) 99 03/26/20 11:00 24 Endotracheal Tube 60 03/26/20 11:00 116/69 03/26/20 10:45 94 24 117/67 (84) 99 03/26/20 10:40 93 24 40 03/26/20 10:30 94 24 123/71 (88) 99 03/26/20 10:15 93 24 133/75 (94) 99 03/26/20 10:07 85/47 03/26/20 10:00 24 Endotracheal Tube 60 03/26/20 10:00 92 24 85/47 (60) 97 03/26/20 09:30 93 24 97/59 (72) 98 03/26/20 09:00 24 Endotracheal Tube 60 03/26/20 09:00 95/58 03/26/20 09:00 94 24 117/72 (87) 99 03/26/20 08:30 94 25 101/76 (84) 98 03/26/20 08:00 Mechanical Ventilator Mechanical Ventilator 03/26/20 08:00 99.2 94 24 94/58 (70) 98 03/26/20 08:00 24 Endotracheal Tube 60 03/26/20 08:00 97/60 03/26/20 08:00 60 03/26/20 08:00 94 03/26/20 07:30 94 25 100/66 (77) 98 03/26/20 07:05 94 24 40 03/26/20 07:00 93 24 114/66 (82) 98 03/26/20 07:00 24 Endotracheal Tube 60 03/26/20 07:00 102/62 03/26/20 06:45 93 24 91/54 (66) 90 03/26/20 06:36 93 24 87/51 (63) 90 03/26/20 06:35 94 24 85/50 (62) 90 03/26/20 06:30 94 24 85/49 (61) 90 03/26/20 06:15 94 24 89/51 (64) 90 03/26/20 06:00 94 24 107/69 (82) 97 03/26/20 05:30 95 24 112/69 (83) 97 03/26/20 05:00 95 24 119/71 (87) 98 03/26/20 05:00 24 Mechanical Ventilator 60 03/26/20 05:00 112/69 03/26/20 04:38 109/63 03/26/20 04:30 95 24 119/67 (84) 98 03/26/20 04:00 98.1 95 24 110/68 (82) 96 03/26/20 04:00 85 03/26/20 04:00 Mechanical Ventilator Mechanical Ventilator 03/26/20 04:00 24 Mechanical Ventilator 60 03/26/20 04:00 112/63 03/26/20 04:00 60 03/26/20 03:00 97 24 110/69 (83) 91 03/26/20 03:00 24 Mechanical Ventilator 60 03/26/20 03:00 136/69 03/26/20 02:30 97 24 120/73 (89) 90 03/26/20 02:00 98 25 128/72 (90) 90 03/26/20 02:00 24 Mechanical Ventilator 40 03/26/20 02:00 125/63 03/26/20 01:39 100 24 40 03/26/20 01:30 99 24 123/73 (90) 90 03/26/20 01:00 101 24 111/64 (80) 89 03/26/20 01:00 24 Mechanical Ventilator 40 03/26/20 01:00 100/56 03/26/20 00:45 101 24 109/63 (78) 96 03/26/20 00:38 102 24 91/49 (63) 96 03/26/20 00:36 101 24 74/41 (52) 96 03/26/20 00:30 101 24 67/40 (49) 92 03/26/20 00:15 87 24 90/43 (59) 96 03/26/20 00:00 97.5 71 24 95/44 (61) 96 03/26/20 00:00 Mechanical Ventilator Mechanical Ventilator 03/26/20 00:00 24 Mechanical Ventilator 40 03/26/20 00:00 77/39 03/26/20 00:00 40 03/26/20 00:00 102 03/25/20 23:45 72 24 120/59 (79) 92 03/25/20 23:30 73 24 132/62 (85) 96 03/25/20 23:15 74 24 113/54 (73) 100 03/25/20 23:00 64 24 110/57 (74) 100 03/25/20 23:00 24 Mechanical Ventilator 40 03/25/20 23:00 132/62 03/25/20 22:52 62 26 40 03/25/20 22:30 62 24 106/47 (66) 100 03/25/20 22:15 61 24 101/50 (67) 100 03/25/20 22:06 24 Mechanical Ventilator 40 03/25/20 22:00 98.1 60 24 102/50 (67) 97 03/25/20 22:00 99/49 03/25/20 21:45 58 24 102/56 (71) 97 03/25/20 21:30 59 24 109/59 (76) 97 03/25/20 21:15 77 24 106/53 (70) 95 03/25/20 21:00 76 24 95/52 (66) 93 03/25/20 21:00 104/59 03/25/20 20:45 69 24 96/49 (65) 95 03/25/20 20:30 63 24 97/49 (65) 98 Intake and Output 03/25/20 03/26/20 19:00 07:00 Intake Total 1442.140 ml 1003.963 ml Output Total 2325 ml 2050 ml Balance -882.860 ml -1046.037 ml Free Water 120 ml IV Total 1022.140 ml 463.963 ml Tube Feeding 420 ml 420 ml Output Urine Total 2225 ml 2050 ml Stool Total 100 ml Laboratory Tests 03/26/20 04:00: White Blood Count 14.6H, Red Blood Count 2.79L, Hemoglobin 9.5L, Hematocrit 29.1L, Mean Corpuscular Volume 104H, Mean Corpuscular Hemoglobin 34.1H, Mean Corpuscular Hemoglobin Concent 32.7, Red Cell Distribution Width 19.7H, Platelet Count 166, Mean Platelet Volume 7.1, Neutrophils (%) (Auto) , Lymphocytes (%) (Auto) , Monocytes (%) (Auto) , Eosinophils (%) (Auto) , Basophils (%) (Auto) , Differential Total Cells Counted 100, Neutrophils % ( Manual) 90H, Lymphocytes % (Manual) 5L, Monocytes % (Manual) 5, Eosinophils % ( Manual) 0, Basophils % (Manual) 0, Band Neutrophils 0, Platelet Estimate Adequate, Platelet Morphology Normal, Hypochromasia 1+, Anisocytosis 1+, Macrocytosis 1+, Sodium Level 154#H, Potassium Level 4.5, Chloride Level 109H, Carbon Dioxide Level > 45*H, Blood Urea Nitrogen 25H, Creatinine 0.8, Estimat Glomerular Filtration Rate > 60, Glucose Level 310H, Calcium Level 8.7, Phosphorus Level 3.3, Magnesium Level 2.4, Total Bilirubin 2.6H, Direct Bilirubin 1.6H, Aspartate Amino Transf (AST/SGOT) 203H, Alanine Aminotransferase (ALT/SGPT) 161H, Alkaline Phosphatase 223H, C-Reactive Protein , Quantitative 2.8H, Pro-B-Type Natriuretic Peptide 78502A, Total Protein 7.6, Albumin 2.4L, Globulin 5.2, Albumin/Globulin Ratio 0.5L 03/26/20 07:32: Arterial Blood pH 7.439, Arterial Blood Partial Pressure CO2 67.6*H, Arterial Blood Partial Pressure O2 104.7H, Arterial Blood HCO3 44.7*H, Arterial Blood Oxygen Saturation 96.6, Arterial Blood Base Excess 17.8*H, Joaquin Test Positive 03/26/20 08:30: Vancomycin Level Trough 17.1H Height (Feet): 5 Height (Inches): 1.00 Weight (Pounds): 225 Celso Moreno MD March 26, 2020 20:30
[2020-03-27] VITALS (40 sets, daily range): BP systolic 88–126; BP diastolic 44–74
[2020-03-27] MEDS: NovoLOG Insulin Flexpen SUBQ SCH ×6 (00:47→21:10)
[2020-03-27] MEDS: DOPamine 400mg/250ml 250 ML IV SCH ×4 (04:15→18:07)
--- NOTE | 2020-03-27 04:20 | Pulmonolgy Critical Care Note ---
Critical Care - Asmt/Plan Assessment/Plan: Pulmonary CCM Progress Note HPI Patient is a 59 year old woman with significant obesity, admitted with bilateral lower extremity cellulitis, had complained of increased swelling and redness to both of her feet and legs Had elevated BNP on admission, persistent edema since admission, worsening hypoxia, LE DVT (right) negative for DVT. Patient had previous hospitalizations for cellulitis, PMH Hypothyroidism, Obesity, Cirrhosis, Anemia, Anxiety, Cellulitis COVID 19 positive, Pneumonia VQ no significant perfusion abnormality, prev LE dupplex negative High D Dimer level, on Lovenox treatment dose Being diuresed, slightly inproving infiltrates on CXR, on ACVC, no tolerating Proning Some improvement in PaO2/FIO2, VC settings adjusted, P 12, FIO2 60% Hyponatremia improving, renal following Hypothyroidism Awaiting Remdasovir, [facility] - Remdesavir requested for when available, [facility] - not available as yet Received IL6 inhibitor inititial dose (4mg/Kg - all that was available), subsequent dose pending, d/w Pharmacy, on steroids - being weaned 30 mg bid On therapeutic dose Lovenox - incr D dimer Seen earlier on 03/26/2020 Allergies: No Known Allergies Past Medical History: Obesity, Cirrhosis, Anemia, Anxiety, Cellulitis, Hypothyroidism All Other Systems: negative except mentioned in HPI Physical Exam Vital Signs Noted General Appearance: Obese, Sedated,intubated Head: normocephalic, atraumatic Eyes: bilateral eye PERRL, bilateral eye EOMI ENT: EOM grossly intact, moist MM, no LN Respiratory: Bilateral crackles, bilateral rhonchi Cardiovascular: regular rate, rhythm, HS1, HS2 RRR Gastrointestinal: Obese, soft non tender, ND Musculoskeletal: Mild to moderate edema and erythema bilateral lower extremity , patient also has crusting on both feet, Neurologic: sedated, no focalsigns Impression: Covid Pneumonia, s/p IL6 inhibitor, sp Hydroxychloroquine, Ivermectin Improving infiltrates and hypoxia, elevated PCO2 Increased WCC - possible secondary to steroids Bilateral Lower Extremity Cellulitis Elevated NPA, severe bilateral edema - improving Cirrhosis Splenomegaly Anemia Anxiety Hyponatremia Hypothyroidism Plan IV Antibiotics per ID On trial of steroids - currently 30 mg bid, s/p IL6 inhibitor Diurese as tolerated, note persistently elevated BNP Surgery following for wounds Hematology following for anemia, observing for Neutropenia/thrombocytopenia Diurese PRN Renal following for hyponatremia Endocrine following for Hypothyroidism, on ISS Monitor labs Bronchodilators PPX - Lovenox - therapeutic dose AC VC Proning PRN 3% saline PRN per renal PRN Supplement electrolytes PRN Albuterol PRN MDI [employer] Medications Previously Patients daughter Tri - discussed grave prognosis, suggested DNAR - will consider [facility] - Remdesavir ordered, awaiting supply, awaiting next dose on IL6 inhibitor once supply available Labs Noted Chest X-Ray: Cardiomegaly, left lower lobe atelectasis versus effusion, worsening infiltrates/congestion Subjective ROS Limited/Unobtainable: No Constitutional: Reports: no symptoms Gastrointestinal/Abdominal: Reports: no symptoms Musculoskeletal: Reports: other - SOB Allergies: Coded Allergies: No Known Allergies (Unverified , 02/29/20) ICU time 50 minutes Critical Care - Objective Last 24 Hour Vital Signs Date Time Temp Pulse Resp B/P (MAP) Pulse Ox O2 Delivery O2 Flow Rate FiO2 03/27/20 04:15 92/48 03/27/20 03:00 24 Mechanical Ventilator 40 03/27/20 03:00 103/62 03/27/20 03:00 88 24 103/62 (76) 95 03/27/20 02:00 87 24 119/74 (89) 97 03/27/20 02:00 24 Mechanical Ventilator 40 03/27/20 02:00 107/63 03/27/20 01:00 88 24 116/73 (87) 97 03/27/20 01:00 24 Mechanical Ventilator 40 03/27/20 01:00 116/73 03/27/20 00:00 99.8 92 24 113/66 (82) 94 03/27/20 00:00 Mechanical Ventilator Mechanical Ventilator 03/27/20 00:00 24 Mechanical Ventilator 40 03/27/20 00:00 113/66 03/26/20 23:15 88 23 40 03/26/20 23:00 24 Mechanical Ventilator 40 03/26/20 23:00 118/72 03/26/20 23:00 118/72 03/26/20 23:00 89 24 118/72 (87) 95 03/26/20 22:30 87 24 124/73 (90) 96 03/26/20 22:00 89 24 104/60 (75) 95 03/26/20 22:00 24 Mechanical Ventilator 40 03/26/20 22:00 125/80 03/26/20 21:00 24 Mechanical Ventilator 60 03/26/20 21:00 95/58 03/26/20 21:00 91 24 91/52 (65) 93 03/26/20 20:00 60 03/26/20 20:00 Mechanical Ventilator Mechanical Ventilator 03/26/20 20:00 24 Mechanical Ventilator 60 03/26/20 20:00 105/68 03/26/20 20:00 97.7 89 24 105/68 (80) 96 03/26/20 20:00 88 03/26/20 19:30 88 24 105/64 (78) 95 03/26/20 19:10 87 24 40 03/26/20 19:00 88 24 108/65 (79) 96 03/26/20 19:00 24 Endotracheal Tube 40 03/26/20 19:00 108/65 03/26/20 18:15 88 24 94/50 (65) 94 03/26/20 18:00 24 Endotracheal Tube 40 03/26/20 18:00 94/50 03/26/20 18:00 91 24 92/54 (67) 92 03/26/20 17:34 91 24 90/54 (66) 92 03/26/20 17:04 91 24 104/68 (80) 99 03/26/20 17:00 25 Endotracheal Tube 40 03/26/20 17:00 102/64 03/26/20 16:40 117/75 03/26/20 16:30 98.5 89 27 112/72 (85) 99 03/26/20 16:00 Mechanical Ventilator Mechanical Ventilator 03/26/20 16:00 24 Endotracheal Tube 60 03/26/20 16:00 117/75 03/26/20 16:00 60 03/26/20 16:00 89 27 117/75 (89) 99 03/26/20 16:00 89 03/26/20 15:45 89 24 124/84 (97) 99 03/26/20 15:30 90 24 111/69 (83) 99 03/26/20 15:30 89 24 124/84 (97) 99 03/26/20 15:15 90 24 106/66 (79) 99 03/26/20 15:05 88 24 40 03/26/20 15:00 24 Endotracheal Tube 60 03/26/20 15:00 106/66 5/10/20 15:00 91 24 141/84 (103) 100 03/26/20 14:30 91 24 139/81 (100) 100 03/26/20 14:00 24 Endotracheal Tube 60 03/26/20 14:00 135/42 03/26/20 14:00 91 24 141/79 (99) 99 03/26/20 13:30 92 24 125/76 (92) 100 03/26/20 13:00 24 Endotracheal Tube 60 03/26/20 13:00 124/74 03/26/20 13:00 93 24 124/73 (90) 99 03/26/20 12:30 93 31 123/70 (87) 99 03/26/20 12:00 Mechanical Ventilator Mechanical Ventilator 03/26/20 12:00 94 03/26/20 12:00 24 Endotracheal Tube 60 03/26/20 12:00 112/63 03/26/20 12:00 60 03/26/20 12:00 94 24 116/69 (85) 99 03/26/20 11:30 94 24 123/70 (87) 99 03/26/20 11:00 95 24 119/73 (88) 99 03/26/20 11:00 95 31 119/73 (88) 99 03/26/20 11:00 24 Endotracheal Tube 60 03/26/20 11:00 116/69 03/26/20 10:45 94 24 117/67 (84) 99 03/26/20 10:40 93 24 40 03/26/20 10:30 94 24 123/71 (88) 99 03/26/20 10:15 93 24 133/75 (94) 99 03/26/20 10:07 85/47 03/26/20 10:00 24 Endotracheal Tube 60 03/26/20 10:00 92 24 85/47 (60) 97 03/26/20 09:30 93 24 97/59 (72) 98 03/26/20 09:00 24 Endotracheal Tube 60 03/26/20 09:00 95/58 03/26/20 09:00 94 24 117/72 (87) 99 03/26/20 08:30 94 25 101/76 (84) 98 03/26/20 08:00 Mechanical Ventilator Mechanical Ventilator 03/26/20 08:00 99.2 94 24 94/58 (70) 98 5/10/20 08:00 24 Endotracheal Tube 60 03/26/20 08:00 97/60 03/26/20 08:00 60 03/26/20 08:00 94 03/26/20 07:30 94 25 100/66 (77) 98 03/26/20 07:05 94 24 40 03/26/20 07:00 93 24 114/66 (82) 98 03/26/20 07:00 24 Endotracheal Tube 60 03/26/20 07:00 102/62 03/26/20 06:45 93 24 91/54 (66) 90 03/26/20 06:36 93 24 87/51 (63) 90 03/26/20 06:35 94 24 85/50 (62) 90 03/26/20 06:30 94 24 85/49 (61) 90 03/26/20 06:15 94 24 89/51 (64) 90 03/26/20 06:00 94 24 107/69 (82) 97 03/26/20 05:30 95 24 112/69 (83) 97 03/26/20 05:00 95 24 119/71 (87) 98 03/26/20 05:00 24 Mechanical Ventilator 60 03/26/20 05:00 112/69 03/26/20 04:38 109/63 03/26/20 04:30 95 24 119/67 (84) 98 Micro: Microbiology Date/Time Source Procedure Growth Status 03/24/20 12:30 Blood Blood Culture - Preliminary NO GROWTH AFTER 24 HOURS Resulted 03/24/20 12:30 Blood Blood Culture - Preliminary NO GROWTH AFTER 24 HOURS Resulted 03/24/20 13:32 Nasopharynx Coronavirus COVID-19 PCR ([facility]) - Final Complete Accucheck: 200 Critical Care - Subjective ROS Limited/Unobtainable: No Condition: critical FI02: 40 Vent Support Breath Rate: 24 Vent Support Mode: AC Vent Tidal Volume: 400 Sputum Amount: Moderate PEEP: 12.0 PIP: 27 Tube Feeding Amount: 35 I&O: Intake and Output 03/26/20 03/27/20 19:00 07:00 Intake Total 1855.969 ml 795.224 ml Output Total 3500 ml 800 ml Balance -1644.031 ml -4.776 ml Free Water 800 ml 150 ml IV Total 635.969 ml 365.224 ml Tube Feeding 420 ml 280 ml Output Urine Total 3500 ml 800 ml ET-Tube: 7.5 ET Position: 21 Doron Carrillo MD March 27, 2020 04:20
[2020-03-27] MEDS: Metoclopramide 10mg/2ml Inj IVP SCH ×3 (05:15→17:44)
[2020-03-27 05:44] LABS: HEMATOCRIT 32.4 % (37.0-47.0); HEMOGLOBIN 10.3 G/DL (12.0-16.0); MEAN CORPUSCULAR VOLUME 110 FL (80-99); PLATELET COUNT 154 K/UL (150-450); RED BLOOD COUNT 2.95 M/UL (4.20-5.40); RED CELL DISTRIBUTION WIDTH 22.7 % (11.6-14.8)
[2020-03-27 06:19] LABS: AMMONIA 65 umol/L (11-32)
[2020-03-27 06:29] LABS: ALANINE AMINOTRANSFERASE 210 U/L (12-78); ALBUMIN 2.4 G/DL (3.4-5.0); ALBUMIN/GLOBULIN RATIO 0.5 (1.0-2.7); ALKALINE PHOSPHATASE 200 U/L (46-116); ASPARTATE AMINO TRANSFERASE 261 U/L (15-37); BILIRUBIN,TOTAL 2.3 MG/DL (0.2-1.0); BLOOD UREA NITROGEN 29 mg/dL (7-18); CALCIUM 9.5 MG/DL (8.5-10.1); CHLORIDE 122 MMOL/L (98-107); CREATININE 0.8 MG/DL (0.55-1.30); PHOSPHORUS 3.7 MG/DL (2.5-4.9); POTASSIUM 3.6 MMOL/L (3.5-5.1)
[2020-03-27 06:33] LABS: CARBON DIOXIDE > 45 MMOL/L (21-32); SODIUM 171 MMOL/L (136-145)
[2020-03-27 06:34] LABS: BILIRUBIN,DIRECT 1.6 MG/DL (0.0-0.3)
--- NOTE | 2020-03-27 07:18 | General Progress Note ---
Assessment/Plan Problem List: (1) Hypothyroid ICD Codes: E03.9 - Hypothyroidism, unspecified SNOMED: 75795639 (2) COVID-19 ICD Codes: U07.1 - COVID-19 SNOMED: 816438738 (3) Respiratory failure with hypoxia ICD Codes: J96.91 - Respiratory failure, unspecified with hypoxia SNOMED: 93202286352253984 Qualifiers: Qualified Codes: J96.01 - Acute respiratory failure with hypoxia (4) Cellulitis ICD Codes: L03.90 - Cellulitis, unspecified SNOMED: 120432480 Qualifiers: Qualified Codes: L03.119 - Cellulitis of unspecified part of limb (5) Hyperglycemia ICD Codes: R73.9 - Hyperglycemia, unspecified SNOMED: 80282180 Status: progressing, unchanged Assessment/Plan: increase Levemir 24 to 30 units bid continue Novolog sliding scale every 4 hours high dose continue Levothyroxine 50 mcg IV daily Subjective ROS Limited/Unobtainable: Yes Allergies: Coded Allergies: No Known Allergies (Unverified , 02/29/20) Subjective events noted - interval notes reviewed intubated in ICU glucose values improved but still on higher side Na is up to 171 today TSH improved Item Value Date Time Bedside Blood Glucose 284 mg/dl H 03/27/20 0515 Bedside Blood Glucose 200 mg/dl H 03/27/20 0047 Bedside Blood Glucose 197 mg/dl H 03/26/20 2013 Bedside Blood Glucose 200 mg/dl H 03/26/20 1757 Bedside Blood Glucose 221 mg/dl H 03/26/20 1237 Bedside Blood Glucose 249 mg/dl H 03/26/20 0846 Objective Last 24 Hour Vital Signs Date Time Temp Pulse Resp B/P (MAP) Pulse Ox O2 Delivery O2 Flow Rate FiO2 03/27/20 07:00 24 Mechanical Ventilator 35 03/27/20 07:00 95/52 03/27/20 07:00 91 24 95/52 (66) 93 03/27/20 06:45 93/53 03/27/20 06:30 90/50 03/27/20 06:15 94/56 03/27/20 06:00 24 Mechanical Ventilator 35 03/27/20 06:00 104/60 03/27/20 06:00 88 24 104/60 (75) 94 03/27/20 05:45 104/60 03/27/20 05:30 105/66 03/27/20 05:15 109/68 03/27/20 05:00 88 24 116/70 (85) 98 03/27/20 05:00 24 Mechanical Ventilator 35 03/27/20 05:00 116/70 03/27/20 04:45 119/69 03/27/20 04:30 105/63 03/27/20 04:15 92/48 03/27/20 04:00 25 Mechanical Ventilator 40 03/27/20 04:00 98/57 03/27/20 04:00 87 03/27/20 04:00 Mechanical Ventilator Mechanical Ventilator 03/27/20 04:00 40 03/27/20 04:00 99.0 87 25 98/57 (71) 97 03/27/20 03:36 87 23 40 03/27/20 03:00 24 Mechanical Ventilator 40 03/27/20 03:00 103/62 03/27/20 03:00 88 24 103/62 (76) 95 03/27/20 02:00 87 24 119/74 (89) 97 03/27/20 02:00 24 Mechanical Ventilator 40 03/27/20 02:00 107/63 03/27/20 01:00 88 24 116/73 (87) 97 03/27/20 01:00 24 Mechanical Ventilator 40 03/27/20 01:00 116/73 03/27/20 00:00 99.8 92 24 113/66 (82) 94 03/27/20 00:00 Mechanical Ventilator Mechanical Ventilator 03/27/20 00:00 92 03/27/20 00:00 24 Mechanical Ventilator 40 03/27/20 00:00 113/66 03/26/20 23:15 88 23 40 03/26/20 23:00 24 Mechanical Ventilator 40 03/26/20 23:00 118/72 03/26/20 23:00 118/72 03/26/20 23:00 89 24 118/72 (87) 95 03/26/20 22:30 87 24 124/73 (90) 96 03/26/20 22:00 89 24 104/60 (75) 95 03/26/20 22:00 24 Mechanical Ventilator 40 03/26/20 22:00 125/80 03/26/20 21:00 24 Mechanical Ventilator 60 03/26/20 21:00 95/58 03/26/20 21:00 91 24 91/52 (65) 93 03/26/20 20:00 60 03/26/20 20:00 Mechanical Ventilator Mechanical Ventilator 03/26/20 20:00 24 Mechanical Ventilator 60 03/26/20 20:00 105/68 03/26/20 20:00 97.7 89 24 105/68 (80) 96 03/26/20 20:00 88 03/26/20 19:30 88 24 105/64 (78) 95 03/26/20 19:10 87 24 40 03/26/20 19:00 88 24 108/65 (79) 96 03/26/20 19:00 24 Endotracheal Tube 40 03/26/20 19:00 108/65 03/26/20 18:15 88 24 94/50 (65) 94 03/26/20 18:00 24 Endotracheal Tube 40 03/26/20 18:00 94/50 03/26/20 18:00 91 24 92/54 (67) 92 03/26/20 17:34 91 24 90/54 (66) 92 03/26/20 17:04 91 24 104/68 (80) 99 03/26/20 17:00 25 Endotracheal Tube 40 03/26/20 17:00 102/64 03/26/20 16:40 117/75 03/26/20 16:30 98.5 89 27 112/72 (85) 99 03/26/20 16:00 Mechanical Ventilator Mechanical Ventilator 03/26/20 16:00 24 Endotracheal Tube 60 03/26/20 16:00 117/75 03/26/20 16:00 60 03/26/20 16:00 89 27 117/75 (89) 99 03/26/20 16:00 89 03/26/20 15:45 89 24 124/84 (97) 99 03/26/20 15:30 90 24 111/69 (83) 99 03/26/20 15:30 89 24 124/84 (97) 99 03/26/20 15:15 90 24 106/66 (79) 99 03/26/20 15:05 88 24 40 03/26/20 15:00 24 Endotracheal Tube 60 03/26/20 15:00 106/66 03/26/20 15:00 91 24 141/84 (103) 100 03/26/20 14:30 91 24 139/81 (100) 100 03/26/20 14:00 24 Endotracheal Tube 60 03/26/20 14:00 135/42 03/26/20 14:00 91 24 141/79 (99) 99 03/26/20 13:30 92 24 125/76 (92) 100 03/26/20 13:00 24 Endotracheal Tube 60 03/26/20 13:00 124/74 03/26/20 13:00 93 24 124/73 (90) 99 03/26/20 12:30 93 31 123/70 (87) 99 03/26/20 12:00 Mechanical Ventilator Mechanical Ventilator 03/26/20 12:00 94 03/26/20 12:00 24 Endotracheal Tube 60 03/26/20 12:00 112/63 03/26/20 12:00 60 03/26/20 12:00 94 24 116/69 (85) 99 03/26/20 11:30 94 24 123/70 (87) 99 03/26/20 11:00 95 24 119/73 (88) 99 03/26/20 11:00 95 31 119/73 (88) 99 03/26/20 11:00 24 Endotracheal Tube 60 03/26/20 11:00 116/69 03/26/20 10:45 94 24 117/67 (84) 99 03/26/20 10:40 93 24 40 03/26/20 10:30 94 24 123/71 (88) 99 03/26/20 10:15 93 24 133/75 (94) 99 03/26/20 10:07 85/47 03/26/20 10:00 24 Endotracheal Tube 60 03/26/20 10:00 92 24 85/47 (60) 97 03/26/20 09:30 93 24 97/59 (72) 98 03/26/20 09:00 24 Endotracheal Tube 60 03/26/20 09:00 95/58 03/26/20 09:00 94 24 117/72 (87) 99 03/26/20 08:30 94 25 101/76 (84) 98 03/26/20 08:00 Mechanical Ventilator Mechanical Ventilator 03/26/20 08:00 99.2 94 24 94/58 (70) 98 03/26/20 08:00 24 Endotracheal Tube 60 03/26/20 08:00 97/60 5/10/20 08:00 60 03/26/20 08:00 94 03/26/20 07:30 94 25 100/66 (77) 98 Intake and Output 03/26/20 03/27/20 19:00 07:00 Intake Total 1855.969 ml 1285.75205 ml Output Total 3500 ml 1600 ml Balance -1644.031 ml -314.32903 ml Free Water 800 ml 300 ml IV Total 635.969 ml 565.87834 ml Tube Feeding 420 ml 420 ml Output Urine Total 3500 ml 1600 ml # Bowel Movements 50 Laboratory Tests 03/26/20 07:32: Arterial Blood pH 7.439, Arterial Blood Partial Pressure CO2 67.6*H, Arterial Blood Partial Pressure O2 104.7H, Arterial Blood HCO3 44.7*H, Arterial Blood Oxygen Saturation 96.6, Arterial Blood Base Excess 17.8*H, Joaquin Test Positive 03/26/20 08:30: Vancomycin Level Trough 17.1H 03/27/20 04:46: White Blood Count 18.0H, Red Blood Count 2.95L, Hemoglobin 10.3L, Hematocrit 32.4L, Mean Corpuscular Volume 110H, Mean Corpuscular Hemoglobin 34.8H, Mean Corpuscular Hemoglobin Concent 31.7L, Red Cell Distribution Width 22.7H, Platelet Count 154, Mean Platelet Volume 6.9, Neutrophils (%) (Auto) , Lymphocytes (%) (Auto) , Monocytes (%) (Auto) , Eosinophils (%) (Auto) , Basophils (%) (Auto) , Neutrophils % (Manual) [Pending], Lymphocytes % (Manual) [Pending], Platelet Estimate [Pending], Platelet Morphology [Pending], Sodium Level 171*H, Potassium Level 3.6, Chloride Level 122H, Carbon Dioxide Level > 45 *H, Blood Urea Nitrogen 29H, Creatinine 0.8, Estimat Glomerular Filtration Rate > 60, Glucose Level 304H, Uric Acid 5.7, Calcium Level 9.5, Phosphorus Level 3.7 , Magnesium Level 3.0H, Total Bilirubin 2.3H, Direct Bilirubin 1.6H, Aspartate Amino Transf (AST/SGOT) 261H, Alanine Aminotransferase (ALT/SGPT) 210H, Alkaline Phosphatase 200H, Ammonia 65H, C-Reactive Protein, Quantitative 2.6H, Pro-B-Type Natriuretic Peptide 4916H, Total Protein 7.4, Albumin 2.4L, Globulin 5.0, Albumin/Globulin Ratio 0.5L, Thyroid Stimulating Hormone (TSH) 3.769H Height (Feet): 5 Height (Inches): 1.00 Weight (Pounds): 229 General Appearance: severe distress, other - intubated EENT: other - ETT Neck: normal alignment Cardiovascular: tachycardia Respiratory/Chest: decreased breath sounds Abdomen: normal bowel sounds Edema: 1+ Arm (L), 1+ Arm (R), 1+ Leg (L), 1+ Leg (R), 1+ Pedal (L), 1+ Pedal ( R), 1+ Generalized Objective Current Medications Medications (Trade) Dose Ordered Sig/Dolores Route PRN Reason Start Time Stop Time Status Last Admin Dose Admin Acetaminophen (Tylenol) 650 mg Q4H PRN ORAL Mild Pain (Pain Scale 1-3) 03/13/20 14:53 04/12/20 14:52 03/25/20 12:35 Acetaminophen (Tylenol) 650 mg Q4H PRN ORAL Temp >100 03/13/20 14:53 04/12/20 14:52 03/25/20 17:16 Acetazolamide (Diamox 500mg Inj) 250 mg Q12H IVP 03/26/20 12:00 04/25/20 11:59 03/26/20 23:04 Chlorhexidine Gluconate (Lucretia-Hex 2%) 1 applic DAILY@2000 TOPIC 03/13/20 20:00 06/11/20 19:59 03/26/20 19:49 Dextrose 500 ml @ 500 mls/hr ONCE ONCE IV 03/27/20 07:00 03/27/20 07:59 Dextrose 1,000 ml @ 100 mls/hr Q10H IV 03/27/20 08:00 04/26/20 07:59 Dextrose (Dextrose 50%) 25 ml Q30M PRN IV Hypoglycemia 03/26/20 08:45 06/24/20 08:44 Dextrose (Dextrose 50%) 50 ml Q30M PRN IV Hypoglycemia 03/26/20 08:45 06/24/20 08:44 Dopamine HCl/ Dextrose 250 ml @ 0 mls/hr Q24H IV 03/16/20 19:30 7/29/20 19:29 03/27/20 04:15 Enoxaparin Sodium (Lovenox) 100 mg EVERY 12 HOURS SUBQ 03/23/20 21:00 06/21/20 20:59 03/26/20 19:50 Fentanyl Citrate 2500 mcg/Sodium Chloride 250 ml @ 0 mls/hr Q24H IV 03/24/20 12:30 03/31/20 12:29 03/25/20 22:06 Hydralazine HCl (Apresoline) 10 mg Q6H PRN IV For High Blood Pressure 03/24/20 16:45 06/22/20 16:44 Insulin Aspart (NovoLOG) EVERY 4 HOURS SUBQ 03/26/20 09:00 06/24/20 08:59 03/27/20 05:15 Insulin Detemir (Levemir) 24 units BID SUBQ 03/26/20 09:00 06/20/20 18:59 03/26/20 17:57 Lactulose (Cephulac) 15 gm TID ORAL 03/24/20 13:00 04/23/20 12:59 03/26/20 17:56 Levofloxacin (Levaquin) 750 mg DAILY NG 03/20/20 12:00 03/27/20 11:59 03/26/20 08:41 Levothyroxine Sodium (Synthroid) 50 mcg DAILY IV 03/21/20 09:00 04/17/20 11:59 03/26/20 08:40 Lorazepam (Ativan 2mg/ml 1ml) 1 mg Q2H PRN IV For Anxiety 03/25/20 16:30 04/01/20 16:29 03/25/20 23:39 Methylprednisolone Sodium Succinate (Solu-MEDROL) 20 mg EVERY 12 HOURS IVP 03/27/20 09:00 06/17/20 20:59 Metoclopramide HCl (Reglan) 5 mg Q6HR IVP 03/24/20 12:00 04/23/20 11:59 03/27/20 05:15 Midodrine (Pro-Amatine) 5 mg THREE TIMES A DAY NG 03/26/20 13:00 06/20/20 12:29 03/26/20 17:56 Mirtazapine (Remeron) 7.5 mg BEDTIME PRN ORAL SLEEP 03/13/20 14:55 06/11/20 14:54 Non-Formulary Medication (Non-Formulary Med) 1 ea DAILY IV 03/18/20 09:00 04/17/20 08:59 UNV Norepinephrine Bitartrate 4 mg/ Dextrose 250 ml @ 0 mls/hr Q24H PRN IV For hypotension 03/25/20 16:30 04/24/20 16:29 Vasopressin 100 units/Sodium Chloride 100 ml @ 0 mls/hr Q24H PRN IV For hypotension 03/16/20 11:00 04/15/20 10:59 03/19/20 18:03 Johan Christopher MD March 27, 2020 07:18
--- NOTE | 2020-03-27 08:39 | Nephrology Progress Note ---
Assessment/Plan Problem List: (1) Electrolyte imbalance Assessment: Hyponatremia resolved -hyperkalemia resolved (2) COVID-19 (3) Respiratory failure with hypoxia (4) Cellulitis (5) Hypothyroid Assessment Hyponatremia. Serum sodium started drifting down from March 16. Hyperkalemia. Septic shock. Acute respiratory failure. Respiratory failure and COVID pneumonia. History of cirrhosis/splenomegaly Anemia Bilateral lower extremity cellulitis Plan March 27: Serum sodium vahe Patient retaining CO2 Will start D5W IV fluid Hold Diamox for now until further comments from chemistry instructor Continue to monitor electrolytes Midodrine dose increased March 26: Remains unstable. Lasix and potassium chloride discontinued. IV Diamox initiated. ABG noted. Midodrine initiated. Continue per pulmonary and ID. Statins discontinued due to elevated liver enzymes. Continue to monitor electrolytes and renal parameters and ABG. Patient remains full code. 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 per area mechanic Taper steroids's deferred to chemistry instructor Urine sodium is below 20 Serum ammonia is elevated will start lactulose Patient on Solu-Medrol and Solu-Cortef will discontinue Solu-Cortef Will try to gently diurese for severe edema meanwhile administering albumin 25% as needed Monitor electrolytes and renal parameters We will add midodrine 10 mg 3 times a day via NG tube Decrease dosage of IV Synthroid Discussed with DAO Starr Subjective ROS Limited/Unobtainable: Yes Objective Objective Last 24 Hour Vital Signs Date Time Temp Pulse Resp B/P (MAP) Pulse Ox O2 Delivery O2 Flow Rate FiO2 03/27/20 08:09 86 24 40 03/27/20 07:00 24 Mechanical Ventilator 35 03/27/20 07:00 95/52 03/27/20 07:00 91 24 95/52 (66) 93 03/27/20 06:45 93/53 03/27/20 06:30 90/50 03/27/20 06:15 94/56 03/27/20 06:00 24 Mechanical Ventilator 35 03/27/20 06:00 104/60 03/27/20 06:00 88 24 104/60 (75) 94 03/27/20 05:45 104/60 03/27/20 05:30 105/66 03/27/20 05:15 109/68 03/27/20 05:00 88 24 116/70 (85) 98 03/27/20 05:00 24 Mechanical Ventilator 35 03/27/20 05:00 116/70 03/27/20 04:45 119/69 03/27/20 04:30 105/63 03/27/20 04:15 92/48 03/27/20 04:00 25 Mechanical Ventilator 40 03/27/20 04:00 98/57 03/27/20 04:00 87 03/27/20 04:00 Mechanical Ventilator Mechanical Ventilator 03/27/20 04:00 40 03/27/20 04:00 99.0 87 25 98/57 (71) 97 03/27/20 03:36 87 23 40 03/27/20 03:00 24 Mechanical Ventilator 40 03/27/20 03:00 103/62 03/27/20 03:00 88 24 103/62 (76) 95 03/27/20 02:00 87 24 119/74 (89) 97 03/27/20 02:00 24 Mechanical Ventilator 40 03/27/20 02:00 107/63 03/27/20 01:00 88 24 116/73 (87) 97 03/27/20 01:00 24 Mechanical Ventilator 40 03/27/20 01:00 116/73 03/27/20 00:00 99.8 92 24 113/66 (82) 94 03/27/20 00:00 Mechanical Ventilator Mechanical Ventilator 03/27/20 00:00 92 03/27/20 00:00 24 Mechanical Ventilator 40 03/27/20 00:00 113/66 03/26/20 23:15 88 23 40 03/26/20 23:00 24 Mechanical Ventilator 40 03/26/20 23:00 118/72 03/26/20 23:00 118/72 03/26/20 23:00 89 24 118/72 (87) 95 03/26/20 22:30 87 24 124/73 (90) 96 03/26/20 22:00 89 24 104/60 (75) 95 03/26/20 22:00 24 Mechanical Ventilator 40 03/26/20 22:00 125/80 03/26/20 21:00 24 Mechanical Ventilator 60 03/26/20 21:00 95/58 03/26/20 21:00 91 24 91/52 (65) 93 03/26/20 20:00 60 03/26/20 20:00 Mechanical Ventilator Mechanical Ventilator 03/26/20 20:00 24 Mechanical Ventilator 60 03/26/20 20:00 105/68 03/26/20 20:00 97.7 89 24 105/68 (80) 96 03/26/20 20:00 88 03/26/20 19:30 88 24 105/64 (78) 95 03/26/20 19:10 87 24 40 03/26/20 19:00 88 24 108/65 (79) 96 03/26/20 19:00 24 Endotracheal Tube 40 03/26/20 19:00 108/65 03/26/20 18:15 88 24 94/50 (65) 94 03/26/20 18:00 24 Endotracheal Tube 40 03/26/20 18:00 94/50 03/26/20 18:00 91 24 92/54 (67) 92 03/26/20 17:34 91 24 90/54 (66) 92 03/26/20 17:04 91 24 104/68 (80) 99 03/26/20 17:00 25 Endotracheal Tube 40 03/26/20 17:00 102/64 03/26/20 16:40 117/75 03/26/20 16:30 98.5 89 27 112/72 (85) 99 03/26/20 16:00 Mechanical Ventilator Mechanical Ventilator 03/26/20 16:00 24 Endotracheal Tube 60 03/26/20 16:00 117/75 03/26/20 16:00 60 03/26/20 16:00 89 27 117/75 (89) 99 03/26/20 16:00 89 03/26/20 15:45 89 24 124/84 (97) 99 03/26/20 15:30 90 24 111/69 (83) 99 03/26/20 15:30 89 24 124/84 (97) 99 03/26/20 15:15 90 24 106/66 (79) 99 03/26/20 15:05 88 24 40 03/26/20 15:00 24 Endotracheal Tube 60 03/26/20 15:00 106/66 03/26/20 15:00 91 24 141/84 (103) 100 03/26/20 14:30 91 24 139/81 (100) 100 03/26/20 14:00 24 Endotracheal Tube 60 03/26/20 14:00 135/42 03/26/20 14:00 91 24 141/79 (99) 99 03/26/20 13:30 92 24 125/76 (92) 100 03/26/20 13:00 24 Endotracheal Tube 60 03/26/20 13:00 124/74 03/26/20 13:00 93 24 124/73 (90) 99 03/26/20 12:30 93 31 123/70 (87) 99 03/26/20 12:00 Mechanical Ventilator Mechanical Ventilator 03/26/20 12:00 94 03/26/20 12:00 24 Endotracheal Tube 60 03/26/20 12:00 112/63 03/26/20 12:00 60 03/26/20 12:00 94 24 116/69 (85) 99 03/26/20 11:30 94 24 123/70 (87) 99 03/26/20 11:00 95 24 119/73 (88) 99 03/26/20 11:00 95 31 119/73 (88) 99 03/26/20 11:00 24 Endotracheal Tube 60 03/26/20 11:00 116/69 03/26/20 10:45 94 24 117/67 (84) 99 03/26/20 10:40 93 24 40 03/26/20 10:30 94 24 123/71 (88) 99 03/26/20 10:15 93 24 133/75 (94) 99 03/26/20 10:07 85/47 03/26/20 10:00 24 Endotracheal Tube 60 03/26/20 10:00 92 24 85/47 (60) 97 03/26/20 09:30 93 24 97/59 (72) 98 03/26/20 09:00 24 Endotracheal Tube 60 03/26/20 09:00 95/58 03/26/20 09:00 94 24 117/72 (87) 99 Intake and Output 03/26/20 03/27/20 19:00 07:00 Intake Total 1855.969 ml 1285.62529 ml Output Total 3500 ml 1600 ml Balance -1644.031 ml -314.82644 ml Free Water 800 ml 300 ml IV Total 635.969 ml 565.62359 ml Tube Feeding 420 ml 420 ml Output Urine Total 3500 ml 1600 ml # Bowel Movements 50 Laboratory Tests 03/27/20 04:46: White Blood Count 18.0H, Red Blood Count 2.95L, Hemoglobin 10.3L, Hematocrit 32.4L, Mean Corpuscular Volume 110H, Mean Corpuscular Hemoglobin 34.8H, Mean Corpuscular Hemoglobin Concent 31.7L, Red Cell Distribution Width 22.7H, Platelet Count 154, Mean Platelet Volume 6.9, Neutrophils (%) (Auto) , Lymphocytes (%) (Auto) , Monocytes (%) (Auto) , Eosinophils (%) (Auto) , Basophils (%) (Auto) , Differential Total Cells Counted 100, Neutrophils % ( Manual) 83H, Lymphocytes % (Manual) 8L, Monocytes % (Manual) 9, Eosinophils % ( Manual) 0, Basophils % (Manual) 0, Band Neutrophils 0, Nucleated Red Blood Cells 3, Platelet Estimate Adequate, Platelet Morphology Normal, Hypochromasia 1 +, Anisocytosis 3+, Macrocytosis 2+, Sodium Level 171*H, Potassium Level 3.6, Chloride Level 122H, Carbon Dioxide Level > 45*H, Blood Urea Nitrogen 29H, Creatinine 0.8, Estimat Glomerular Filtration Rate > 60, Glucose Level 304H, Uric Acid 5.7, Calcium Level 9.5, Phosphorus Level 3.7, Magnesium Level 3.0H, Total Bilirubin 2.3H, Direct Bilirubin 1.6H, Aspartate Amino Transf (AST/SGOT) 261H, Alanine Aminotransferase (ALT/SGPT) 210H, Alkaline Phosphatase 200H, Ammonia 65H, C-Reactive Protein, Quantitative 2.6H, Pro-B-Type Natriuretic Peptide 4916H, Total Protein 7.4, Albumin 2.4L, Globulin 5.0, Albumin/Globulin Ratio 0.5L, Thyroid Stimulating Hormone (TSH) 3.769H 03/27/20 08:05: Arterial Blood pH 7.402, Arterial Blood Partial Pressure CO2 75.4*H, Arterial Blood Partial Pressure O2 72.1L, Arterial Blood HCO3 45.9*H, Arterial Blood Oxygen Saturation 92.1L, Arterial Blood Base Excess 18.0*H, Joaquin Test Positive Height (Feet): 5 Height (Inches): 1.00 Weight (Pounds): 229 General Appearance: no apparent distress, lethargic EENT: other - Intubated on ventilator Cardiovascular: tachycardia Respiratory/Chest: decreased breath sounds Cristhian Granados MD March 27, 2020 08:39
[2020-03-27] MEDS ORDERED: Levemir Flexpen SUBQ SCH (09:00)
[2020-03-27] MEDS: Lactulose 20gm/30ml UDC ORAL SCH ×3 (09:01→17:44)
[2020-03-27] MEDS: Levofloxacin 750mg tab NG SCH (09:02)
[2020-03-27] MEDS: Solu-MEDROL 40mg Inj IVP SCH ×2 (09:02→20:47)
[2020-03-27] MEDS: Enoxaparin 100mg Inj SUBQ SCH ×2 (09:03→20:47)
[2020-03-27] MEDS: Midodrine 10mg tab NG SCH ×3 (09:10→17:44)
--- NOTE | 2020-03-27 09:39 | Infectious Diseases Prog Note ---
Assessment/Plan Assessment/Plan IMPRESSION: 1. Bilateral leg cellulitis,Pseudomonas in culture 2. Anemia. 3. Hypoxemic respiratory failure 4. Thrombocytopenia. 5. Homeless 6. Morbid obesity. 7. Cirrhosis 8. COVID19 pneumonia Positive03/07-03/12 9. Hepatitis C 10.septic shock 11. Pneumonia with Pseudomonas RECOMMENDATION: Will f/u COVID19 test Finished Plaquenil & Zithromax course Received a dose of Actemra & Ivermectin Continue Levaquin, Discontinue IV Vancomycin Blood culture is negative so far Repeat COVID19 test Case was D/W RN Subjective ROS Limited/Unobtainable: Yes Constitutional: Denies: fever Cardiovascular: Reports: other - on Dopamin Allergies: Coded Allergies: No Known Allergies (Unverified , 02/29/20) Objective Vital Signs Last 24 Hour Vital Signs Date Time Temp Pulse Resp B/P (MAP) Pulse Ox O2 Delivery O2 Flow Rate FiO2 03/27/20 08:09 86 24 40 03/27/20 07:00 24 Mechanical Ventilator 35 03/27/20 07:00 95/52 03/27/20 07:00 91 24 95/52 (66) 93 03/27/20 06:45 93/53 03/27/20 06:30 90/50 03/27/20 06:15 94/56 03/27/20 06:00 24 Mechanical Ventilator 35 03/27/20 06:00 104/60 03/27/20 06:00 88 24 104/60 (75) 94 03/27/20 05:45 104/60 03/27/20 05:30 105/66 03/27/20 05:15 109/68 03/27/20 05:00 88 24 116/70 (85) 98 03/27/20 05:00 24 Mechanical Ventilator 35 03/27/20 05:00 116/70 03/27/20 04:45 119/69 03/27/20 04:30 105/63 03/27/20 04:15 92/48 03/27/20 04:00 25 Mechanical Ventilator 40 03/27/20 04:00 98/57 03/27/20 04:00 87 03/27/20 04:00 Mechanical Ventilator Mechanical Ventilator 03/27/20 04:00 40 03/27/20 04:00 99.0 87 25 98/57 (71) 97 03/27/20 03:36 87 23 40 03/27/20 03:00 24 Mechanical Ventilator 40 03/27/20 03:00 103/62 03/27/20 03:00 88 24 103/62 (76) 95 03/27/20 02:00 87 24 119/74 (89) 97 03/27/20 02:00 24 Mechanical Ventilator 40 03/27/20 02:00 107/63 03/27/20 01:00 88 24 116/73 (87) 97 03/27/20 01:00 24 Mechanical Ventilator 40 03/27/20 01:00 116/73 03/27/20 00:00 99.8 92 24 113/66 (82) 94 03/27/20 00:00 Mechanical Ventilator Mechanical Ventilator 03/27/20 00:00 92 03/27/20 00:00 24 Mechanical Ventilator 40 03/27/20 00:00 113/66 03/26/20 23:15 88 23 40 03/26/20 23:00 24 Mechanical Ventilator 40 03/26/20 23:00 118/72 03/26/20 23:00 118/72 03/26/20 23:00 89 24 118/72 (87) 95 03/26/20 22:30 87 24 124/73 (90) 96 03/26/20 22:00 89 24 104/60 (75) 95 03/26/20 22:00 24 Mechanical Ventilator 40 03/26/20 22:00 125/80 03/26/20 21:00 24 Mechanical Ventilator 60 03/26/20 21:00 95/58 03/26/20 21:00 91 24 91/52 (65) 93 03/26/20 20:00 60 03/26/20 20:00 Mechanical Ventilator Mechanical Ventilator 03/26/20 20:00 24 Mechanical Ventilator 60 03/26/20 20:00 105/68 03/26/20 20:00 97.7 89 24 105/68 (80) 96 03/26/20 20:00 88 03/26/20 19:30 88 24 105/64 (78) 95 03/26/20 19:10 87 24 40 03/26/20 19:00 88 24 108/65 (79) 96 03/26/20 19:00 24 Endotracheal Tube 40 03/26/20 19:00 108/65 03/26/20 18:15 88 24 94/50 (65) 94 03/26/20 18:00 24 Endotracheal Tube 40 03/26/20 18:00 94/50 03/26/20 18:00 91 24 92/54 (67) 92 03/26/20 17:34 91 24 90/54 (66) 92 03/26/20 17:04 91 24 104/68 (80) 99 03/26/20 17:00 25 Endotracheal Tube 40 03/26/20 17:00 102/64 03/26/20 16:40 117/75 03/26/20 16:30 98.5 89 27 112/72 (85) 99 03/26/20 16:00 Mechanical Ventilator Mechanical Ventilator 03/26/20 16:00 24 Endotracheal Tube 60 03/26/20 16:00 117/75 03/26/20 16:00 60 03/26/20 16:00 89 27 117/75 (89) 99 03/26/20 16:00 89 03/26/20 15:45 89 24 124/84 (97) 99 03/26/20 15:30 90 24 111/69 (83) 99 03/26/20 15:30 89 24 124/84 (97) 99 03/26/20 15:15 90 24 106/66 (79) 99 03/26/20 15:05 88 24 40 03/26/20 15:00 24 Endotracheal Tube 60 03/26/20 15:00 106/66 03/26/20 15:00 91 24 141/84 (103) 100 03/26/20 14:30 91 24 139/81 (100) 100 03/26/20 14:00 24 Endotracheal Tube 60 03/26/20 14:00 135/42 03/26/20 14:00 91 24 141/79 (99) 99 03/26/20 13:30 92 24 125/76 (92) 100 03/26/20 13:00 24 Endotracheal Tube 60 03/26/20 13:00 124/74 03/26/20 13:00 93 24 124/73 (90) 99 03/26/20 12:30 93 31 123/70 (87) 99 03/26/20 12:00 Mechanical Ventilator Mechanical Ventilator 03/26/20 12:00 94 03/26/20 12:00 24 Endotracheal Tube 60 5/10/20 12:00 112/63 03/26/20 12:00 60 03/26/20 12:00 94 24 116/69 (85) 99 03/26/20 11:30 94 24 123/70 (87) 99 03/26/20 11:00 95 24 119/73 (88) 99 03/26/20 11:00 95 31 119/73 (88) 99 03/26/20 11:00 24 Endotracheal Tube 60 03/26/20 11:00 116/69 03/26/20 10:45 94 24 117/67 (84) 99 03/26/20 10:40 93 24 40 03/26/20 10:30 94 24 123/71 (88) 99 03/26/20 10:15 93 24 133/75 (94) 99 03/26/20 10:07 85/47 03/26/20 10:00 24 Endotracheal Tube 60 03/26/20 10:00 92 24 85/47 (60) 97 Height (Feet): 5 Height (Inches): 1.00 Weight (Pounds): 229 HEENT: mucous membranes moist, other - orally intubated Respiratory/Chest: other - on Ventilator, FIO2=35% Cardiovascular: normal rate, other Abdomen: soft, non tender Extremities: other - edema Neurologic/Psychiatric: other - sedated Microbiology Date/Time Source Procedure Growth Status 03/24/20 12:30 Blood Blood Culture - Preliminary NO GROWTH AFTER 48 HOURS Resulted 03/24/20 12:30 Blood Blood Culture - Preliminary NO GROWTH AFTER 48 HOURS Resulted 03/24/20 13:32 Nasopharynx Coronavirus COVID-19 PCR ([facility]) - Final Complete Laboratory Tests Test 03/27/20 04:46 03/27/20 08:05 White Blood Count 18.0 K/UL (4.8-10.8) H Red Blood Count 2.95 M/UL (4.20-5.40) L Hemoglobin 10.3 G/DL (12.0-16.0) L Hematocrit 32.4 % (37.0-47.0) L Mean Corpuscular Volume 110 FL (80-99) H Mean Corpuscular Hemoglobin 34.8 PG (27.0-31.0) H Mean Corpuscular Hemoglobin Concent 31.7 G/DL (32.0-36.0) L Red Cell Distribution Width 22.7 % (11.6-14.8) H Platelet Count 154 K/UL (150-450) Mean Platelet Volume 6.9 FL (6.5-10.1) Neutrophils (%) (Auto) % (45.0-75.0) Lymphocytes (%) (Auto) % (20.0-45.0) Monocytes (%) (Auto) % (1.0-10.0) Eosinophils (%) (Auto) % (0.0-3.0) Basophils (%) (Auto) % (0.0-2.0) Differential Total Cells Counted 100 Neutrophils % (Manual) 83 % (45-75) H Lymphocytes % (Manual) 8 % (20-45) L Monocytes % (Manual) 9 % (1-10) Eosinophils % (Manual) 0 % (0-3) Basophils % (Manual) 0 % (0-2) Band Neutrophils 0 % (0-8) Nucleated Red Blood Cells 3 /100 WBC Platelet Estimate Adequate Platelet Morphology Normal Hypochromasia 1+ Anisocytosis 3+ Macrocytosis 2+ Sodium Level 171 MMOL/L (136-145) *H Potassium Level 3.6 MMOL/L (3.5-5.1) Chloride Level 122 MMOL/L (98-107) H Carbon Dioxide Level > 45 MMOL/L (21-32) *H Blood Urea Nitrogen 29 mg/dL (7-18) H Creatinine 0.8 MG/DL (0.55-1.30) Estimat Glomerular Filtration Rate > 60 mL/min (>60) Glucose Level 304 MG/DL (74-106) H Uric Acid 5.7 MG/DL (2.6-7.2) Calcium Level 9.5 MG/DL (8.5-10.1) Phosphorus Level 3.7 MG/DL (2.5-4.9) Magnesium Level 3.0 MG/DL (1.8-2.4) H Total Bilirubin 2.3 MG/DL (0.2-1.0) H Direct Bilirubin 1.6 MG/DL (0.0-0.3) H Aspartate Amino Transf (AST/SGOT) 261 U/L (15-37) H Alanine Aminotransferase (ALT/SGPT) 210 U/L (12-78) H Alkaline Phosphatase 200 U/L (46-116) H Ammonia 65 umol/L (11-32) H C-Reactive Protein, Quantitative 2.6 mg/dL (0.00-0.90) H Pro-B-Type Natriuretic Peptide 4916 pg/mL (0-125) H Total Protein 7.4 G/DL (6.4-8.2) Albumin 2.4 G/DL (3.4-5.0) L Globulin 5.0 g/dL Albumin/Globulin Ratio 0.5 (1.0-2.7) L Thyroid Stimulating Hormone (TSH) 3.769 uiU/mL (0.358-3.740) Arterial Blood pH 7.402 (7.350-7.450) Arterial Blood Partial Pressure CO2 75.4 mmHg (35.0-45.0) *H Arterial Blood Partial Pressure O2 72.1 mmHg (75.0-100.0) L Arterial Blood HCO3 45.9 mmol/L (22.0-26.0) *H Arterial Blood Oxygen Saturation 92.1 % (95-100) L Arterial Blood Base Excess 18.0 (-2-2) *H Joaquin Test Positive Current Medications Medications (Trade) Dose Ordered Sig/Dolores Route PRN Reason Start Time Stop Time Status Last Admin Dose Admin Acetaminophen (Tylenol) 650 mg Q4H PRN ORAL Mild Pain (Pain Scale 1-3) 03/13/20 14:53 04/12/20 14:52 03/25/20 12:35 Acetaminophen (Tylenol) 650 mg Q4H PRN ORAL Temp >100 03/13/20 14:53 04/12/20 14:52 03/25/20 17:16 Chlorhexidine Gluconate (Lucretia-Hex 2%) 1 applic DAILY@2000 TOPIC 03/13/20 20:00 06/11/20 19:59 03/26/20 19:49 Dextrose 1,000 ml @ 100 mls/hr Q10H IV 03/27/20 08:00 04/26/20 07:59 03/27/20 09:01 Dextrose (Dextrose 50%) 25 ml Q30M PRN IV Hypoglycemia 03/26/20 08:45 06/24/20 08:44 Dextrose (Dextrose 50%) 50 ml Q30M PRN IV Hypoglycemia 03/26/20 08:45 06/24/20 08:44 Dopamine HCl/ Dextrose 250 ml @ 0 mls/hr Q24H IV 03/16/20 19:30 06/14/20 19:29 03/27/20 04:15 Enoxaparin Sodium (Lovenox) 100 mg EVERY 12 HOURS SUBQ 03/23/20 21:00 06/21/20 20:59 03/27/20 09:03 Fentanyl Citrate 2500 mcg/Sodium Chloride 250 ml @ 0 mls/hr Q24H IV 03/24/20 12:30 03/31/20 12:29 03/25/20 22:06 Hydralazine HCl (Apresoline) 10 mg Q6H PRN IV For High Blood Pressure 03/24/20 16:45 06/22/20 16:44 Insulin Aspart (NovoLOG) EVERY 4 HOURS SUBQ 03/26/20 09:00 06/24/20 08:59 03/27/20 09:04 Insulin Detemir (Levemir) 30 units BID SUBQ 03/27/20 09:00 06/20/20 18:59 03/27/20 09:04 Lactulose (Cephulac) 15 gm TID ORAL 03/24/20 13:00 04/23/20 12:59 03/27/20 09:01 Levofloxacin (Levaquin) 750 mg DAILY NG 03/20/20 12:00 03/27/20 11:59 03/27/20 09:02 Levothyroxine Sodium (Synthroid) 50 mcg DAILY IV 03/21/20 09:00 04/17/20 11:59 03/27/20 09:01 Lorazepam (Ativan 2mg/ml 1ml) 1 mg Q2H PRN IV For Anxiety 03/25/20 16:30 04/01/20 16:29 03/25/20 23:39 Methylprednisolone Sodium Succinate (Solu-MEDROL) 20 mg EVERY 12 HOURS IVP 03/27/20 09:00 06/17/20 20:59 03/27/20 09:02 Metoclopramide HCl (Reglan) 5 mg Q6HR IVP 03/24/20 12:00 04/23/20 11:59 03/27/20 05:15 Midodrine (Pro-Amatine) 10 mg THREE TIMES A DAY NG 03/27/20 09:00 06/20/20 12:29 03/27/20 09:10 Mirtazapine (Remeron) 7.5 mg BEDTIME PRN ORAL SLEEP 03/13/20 14:55 06/11/20 14:54 Non-Formulary Medication (Non-Formulary Med) 1 ea DAILY IV 03/18/20 09:00 04/17/20 08:59 UNV Norepinephrine Bitartrate 4 mg/ Dextrose 250 ml @ 0 mls/hr Q24H PRN IV For hypotension 03/25/20 16:30 04/24/20 16:29 Vasopressin 100 units/Sodium Chloride 100 ml @ 0 mls/hr Q24H PRN IV For hypotension 03/16/20 11:00 04/15/20 10:59 03/19/20 18:03 Jonathon Shah MD March 27, 2020 09:39
--- NOTE | 2020-03-27 10:20 | Cardiology Progress Note ---
Assessment/Plan Assessment/Plan 1. Acute hypoxic hypercapnic respiratory failure, due to bilateral PNA caused by COVID-19 infection. 2. Septic shock on dopamine gtt and midodrine, keep MAP at 65 mmHg. Normal LV function with LVEF at 60%. 3. Hyponatremia, resolved. 4. Bilateral lower extremity cellulitis with Pseudomonas aeruginosa in culture. Subjective Subjective Sinus rhythm at rate of 85. Objective Last 24 Hour Vital Signs Date Time Temp Pulse Resp B/P (MAP) Pulse Ox O2 Delivery O2 Flow Rate FiO2 03/27/20 09:45 85 24 110/66 (81) 96 03/27/20 09:34 126/69 03/27/20 09:30 85 24 126/69 (88) 98 03/27/20 09:15 84 23 90/50 (63) 95 03/27/20 09:00 85 24 115/71 (86) 97 03/27/20 08:30 86 24 126/70 (88) 98 03/27/20 08:09 86 24 40 03/27/20 08:00 98.9 87 24 114/64 (81) 97 03/27/20 08:00 Mechanical Ventilator Mechanical Ventilator 03/27/20 08:00 40 03/27/20 07:00 24 Mechanical Ventilator 35 03/27/20 07:00 95/52 03/27/20 07:00 91 24 95/52 (66) 93 03/27/20 06:45 93/53 03/27/20 06:30 90/50 03/27/20 06:15 94/56 03/27/20 06:00 24 Mechanical Ventilator 35 03/27/20 06:00 104/60 03/27/20 06:00 88 24 104/60 (75) 94 03/27/20 05:45 104/60 03/27/20 05:30 105/66 03/27/20 05:15 109/68 03/27/20 05:00 88 24 116/70 (85) 98 03/27/20 05:00 24 Mechanical Ventilator 35 03/27/20 05:00 116/70 03/27/20 04:45 119/69 03/27/20 04:30 105/63 03/27/20 04:15 92/48 03/27/20 04:00 25 Mechanical Ventilator 40 03/27/20 04:00 98/57 03/27/20 04:00 87 03/27/20 04:00 Mechanical Ventilator Mechanical Ventilator 03/27/20 04:00 40 03/27/20 04:00 99.0 87 25 98/57 (71) 97 03/27/20 03:36 87 23 40 03/27/20 03:00 24 Mechanical Ventilator 40 03/27/20 03:00 103/62 03/27/20 03:00 88 24 103/62 (76) 95 03/27/20 02:00 87 24 119/74 (89) 97 03/27/20 02:00 24 Mechanical Ventilator 40 03/27/20 02:00 107/63 03/27/20 01:00 88 24 116/73 (87) 97 03/27/20 01:00 24 Mechanical Ventilator 40 03/27/20 01:00 116/73 03/27/20 00:00 99.8 92 24 113/66 (82) 94 03/27/20 00:00 Mechanical Ventilator Mechanical Ventilator 03/27/20 00:00 92 03/27/20 00:00 24 Mechanical Ventilator 40 03/27/20 00:00 113/66 03/26/20 23:15 88 23 40 03/26/20 23:00 24 Mechanical Ventilator 40 03/26/20 23:00 118/72 03/26/20 23:00 118/72 03/26/20 23:00 89 24 118/72 (87) 95 03/26/20 22:30 87 24 124/73 (90) 96 03/26/20 22:00 89 24 104/60 (75) 95 03/26/20 22:00 24 Mechanical Ventilator 40 03/26/20 22:00 125/80 03/26/20 21:00 24 Mechanical Ventilator 60 03/26/20 21:00 95/58 03/26/20 21:00 91 24 91/52 (65) 93 03/26/20 20:00 60 03/26/20 20:00 Mechanical Ventilator Mechanical Ventilator 03/26/20 20:00 24 Mechanical Ventilator 60 03/26/20 20:00 105/68 03/26/20 20:00 97.7 89 24 105/68 (80) 96 03/26/20 20:00 88 03/26/20 19:30 88 24 105/64 (78) 95 03/26/20 19:10 87 24 40 03/26/20 19:00 88 24 108/65 (79) 96 03/26/20 19:00 24 Endotracheal Tube 40 03/26/20 19:00 108/65 03/26/20 18:15 88 24 94/50 (65) 94 03/26/20 18:00 24 Endotracheal Tube 40 03/26/20 18:00 94/50 03/26/20 18:00 91 24 92/54 (67) 92 03/26/20 17:34 91 24 90/54 (66) 92 03/26/20 17:04 91 24 104/68 (80) 99 03/26/20 17:00 25 Endotracheal Tube 40 03/26/20 17:00 102/64 03/26/20 16:40 117/75 03/26/20 16:30 98.5 89 27 112/72 (85) 99 03/26/20 16:00 Mechanical Ventilator Mechanical Ventilator 03/26/20 16:00 24 Endotracheal Tube 60 03/26/20 16:00 117/75 03/26/20 16:00 60 03/26/20 16:00 89 27 117/75 (89) 99 03/26/20 16:00 89 03/26/20 15:45 89 24 124/84 (97) 99 03/26/20 15:30 90 24 111/69 (83) 99 03/26/20 15:30 89 24 124/84 (97) 99 03/26/20 15:15 90 24 106/66 (79) 99 03/26/20 15:05 88 24 40 03/26/20 15:00 24 Endotracheal Tube 60 03/26/20 15:00 106/66 03/26/20 15:00 91 24 141/84 (103) 100 03/26/20 14:30 91 24 139/81 (100) 100 03/26/20 14:00 24 Endotracheal Tube 60 03/26/20 14:00 135/42 03/26/20 14:00 91 24 141/79 (99) 99 03/26/20 13:30 92 24 125/76 (92) 100 03/26/20 13:00 24 Endotracheal Tube 60 03/26/20 13:00 124/74 03/26/20 13:00 93 24 124/73 (90) 99 03/26/20 12:30 93 31 123/70 (87) 99 5/10/20 12:00 Mechanical Ventilator Mechanical Ventilator 03/26/20 12:00 94 03/26/20 12:00 24 Endotracheal Tube 60 03/26/20 12:00 112/63 03/26/20 12:00 60 03/26/20 12:00 94 24 116/69 (85) 99 03/26/20 11:30 94 24 123/70 (87) 99 03/26/20 11:00 95 24 119/73 (88) 99 03/26/20 11:00 95 31 119/73 (88) 99 03/26/20 11:00 24 Endotracheal Tube 60 03/26/20 11:00 116/69 03/26/20 10:45 94 24 117/67 (84) 99 03/26/20 10:40 93 24 40 03/26/20 10:30 94 24 123/71 (88) 99 Intake and Output 03/26/20 03/27/20 19:00 07:00 Intake Total 1855.969 ml 1285.71631 ml Output Total 3500 ml 1600 ml Balance -1644.031 ml -314.60412 ml Free Water 800 ml 300 ml IV Total 635.969 ml 565.55656 ml Tube Feeding 420 ml 420 ml Output Urine Total 3500 ml 1600 ml # Bowel Movements 50 Laboratory Tests Test 03/27/20 04:46 03/27/20 08:05 White Blood Count 18.0 K/UL (4.8-10.8) H Red Blood Count 2.95 M/UL (4.20-5.40) L Hemoglobin 10.3 G/DL (12.0-16.0) L Hematocrit 32.4 % (37.0-47.0) L Mean Corpuscular Volume 110 FL (80-99) H Mean Corpuscular Hemoglobin 34.8 PG (27.0-31.0) H Mean Corpuscular Hemoglobin Concent 31.7 G/DL (32.0-36.0) L Red Cell Distribution Width 22.7 % (11.6-14.8) H Platelet Count 154 K/UL (150-450) Mean Platelet Volume 6.9 FL (6.5-10.1) Neutrophils (%) (Auto) % (45.0-75.0) Lymphocytes (%) (Auto) % (20.0-45.0) Monocytes (%) (Auto) % (1.0-10.0) Eosinophils (%) (Auto) % (0.0-3.0) Basophils (%) (Auto) % (0.0-2.0) Differential Total Cells Counted 100 Neutrophils % (Manual) 83 % (45-75) H Lymphocytes % (Manual) 8 % (20-45) L Monocytes % (Manual) 9 % (1-10) Eosinophils % (Manual) 0 % (0-3) Basophils % (Manual) 0 % (0-2) Band Neutrophils 0 % (0-8) Nucleated Red Blood Cells 3 /100 WBC Platelet Estimate Adequate Platelet Morphology Normal Hypochromasia 1+ Anisocytosis 3+ Macrocytosis 2+ Sodium Level 171 MMOL/L (136-145) *H Potassium Level 3.6 MMOL/L (3.5-5.1) Chloride Level 122 MMOL/L (98-107) H Carbon Dioxide Level > 45 MMOL/L (21-32) *H Blood Urea Nitrogen 29 mg/dL (7-18) H Creatinine 0.8 MG/DL (0.55-1.30) Estimat Glomerular Filtration Rate > 60 mL/min (>60) Glucose Level 304 MG/DL (74-106) H Uric Acid 5.7 MG/DL (2.6-7.2) Calcium Level 9.5 MG/DL (8.5-10.1) Phosphorus Level 3.7 MG/DL (2.5-4.9) Magnesium Level 3.0 MG/DL (1.8-2.4) H Total Bilirubin 2.3 MG/DL (0.2-1.0) H Direct Bilirubin 1.6 MG/DL (0.0-0.3) H Aspartate Amino Transf (AST/SGOT) 261 U/L (15-37) H Alanine Aminotransferase (ALT/SGPT) 210 U/L (12-78) H Alkaline Phosphatase 200 U/L (46-116) H Ammonia 65 umol/L (11-32) H C-Reactive Protein, Quantitative 2.6 mg/dL (0.00-0.90) H Pro-B-Type Natriuretic Peptide 4916 pg/mL (0-125) H Total Protein 7.4 G/DL (6.4-8.2) Albumin 2.4 G/DL (3.4-5.0) L Globulin 5.0 g/dL Albumin/Globulin Ratio 0.5 (1.0-2.7) L Thyroid Stimulating Hormone (TSH) 3.769 uiU/mL (0.358-3.740) Arterial Blood pH 7.402 (7.350-7.450) Arterial Blood Partial Pressure CO2 75.4 mmHg (35.0-45.0) *H Arterial Blood Partial Pressure O2 72.1 mmHg (75.0-100.0) L Arterial Blood HCO3 45.9 mmol/L (22.0-26.0) *H Arterial Blood Oxygen Saturation 92.1 % (95-100) L Arterial Blood Base Excess 18.0 (-2-2) *H Joaquin Test Positive Microbiology Date/Time Source Procedure Growth Status 03/24/20 12:30 Blood Blood Culture - Preliminary NO GROWTH AFTER 48 HOURS Resulted 03/24/20 12:30 Blood Blood Culture - Preliminary NO GROWTH AFTER 48 HOURS Resulted 03/24/20 13:32 Nasopharynx Coronavirus COVID-19 PCR ([facility]A) - Final Complete Objective HEENT: Atraumatic and normocephalic. Anicteric. Intubated. NECK: JVP cannot be assessed. No carotid bruit. + ETT. CARDIOVASCULAR: Normal S1, S2. Regular rate and rhythm. No murmurs, gallops, or rubs. PMI is at fourth intercostal space at left midclavicular line. LUNGS: Bibasilar crackles. ABDOMEN: Soft, nontender, and nondistended. No hepatosplenomegaly. Positive bowel sounds. EXTREMITIES: A 2+ edema bilaterally associated with erythema with blistering and crust formation of both feet. Berto Gonzalez MD March 27, 2020 10:20
--- NOTE | 2020-03-27 11:29 | General Progress Note ---
Assessment/Plan Status: progressing, unchanged Assessment/Plan: macrocytic anemia elevated LFTS cirrhosis cellulitis elevated Ammonia levels respiratory distress>>> now failure COVID positive pna NGTF abd us>> reviewed Xifaxan fu stool ob>>>neg GI procedures if needed abx per id hepatitis panel>>>>>positive for hep C>>> needs out patient fu poor prognosis ammonia level in am will fu Subjective ROS Limited/Unobtainable: No Allergies: Coded Allergies: No Known Allergies (Unverified , 02/29/20) Objective Last 24 Hour Vital Signs Date Time Temp Pulse Resp B/P (MAP) Pulse Ox O2 Delivery O2 Flow Rate FiO2 03/27/20 11:00 88 24 92/49 (63) 94 03/27/20 10:30 87 24 101/56 (71) 94 03/27/20 10:00 86 24 106/64 (78) 95 03/27/20 09:45 85 24 110/66 (81) 96 03/27/20 09:34 126/69 03/27/20 09:30 85 24 126/69 (88) 98 03/27/20 09:15 84 23 90/50 (63) 95 03/27/20 09:00 85 24 115/71 (86) 97 03/27/20 09:00 24 Endotracheal Tube 35 03/27/20 08:30 86 24 126/70 (88) 98 03/27/20 08:09 86 24 40 03/27/20 08:00 98.9 87 24 114/64 (81) 97 03/27/20 08:00 Mechanical Ventilator Mechanical Ventilator 03/27/20 08:00 24 Endotracheal Tube 35 03/27/20 08:00 116/65 03/27/20 08:00 40 03/27/20 07:00 24 Mechanical Ventilator 35 03/27/20 07:00 95/52 03/27/20 07:00 91 24 95/52 (66) 93 03/27/20 06:45 93/53 03/27/20 06:30 90/50 03/27/20 06:15 94/56 03/27/20 06:00 24 Mechanical Ventilator 35 03/27/20 06:00 104/60 03/27/20 06:00 88 24 104/60 (75) 94 03/27/20 05:45 104/60 03/27/20 05:30 105/66 03/27/20 05:15 109/68 03/27/20 05:00 88 24 116/70 (85) 98 03/27/20 05:00 24 Mechanical Ventilator 35 03/27/20 05:00 116/70 03/27/20 04:45 119/69 03/27/20 04:30 105/63 03/27/20 04:15 92/48 03/27/20 04:00 25 Mechanical Ventilator 40 03/27/20 04:00 98/57 03/27/20 04:00 87 03/27/20 04:00 Mechanical Ventilator Mechanical Ventilator 03/27/20 04:00 40 03/27/20 04:00 99.0 87 25 98/57 (71) 97 03/27/20 03:36 87 23 40 03/27/20 03:00 24 Mechanical Ventilator 40 03/27/20 03:00 103/62 03/27/20 03:00 88 24 103/62 (76) 95 03/27/20 02:00 87 24 119/74 (89) 97 03/27/20 02:00 24 Mechanical Ventilator 40 03/27/20 02:00 107/63 03/27/20 01:00 88 24 116/73 (87) 97 03/27/20 01:00 24 Mechanical Ventilator 40 03/27/20 01:00 116/73 03/27/20 00:00 99.8 92 24 113/66 (82) 94 03/27/20 00:00 Mechanical Ventilator Mechanical Ventilator 03/27/20 00:00 92 03/27/20 00:00 24 Mechanical Ventilator 40 03/27/20 00:00 113/66 03/26/20 23:15 88 23 40 03/26/20 23:00 24 Mechanical Ventilator 40 03/26/20 23:00 118/72 03/26/20 23:00 118/72 03/26/20 23:00 89 24 118/72 (87) 95 03/26/20 22:30 87 24 124/73 (90) 96 03/26/20 22:00 89 24 104/60 (75) 95 03/26/20 22:00 24 Mechanical Ventilator 40 03/26/20 22:00 125/80 03/26/20 21:00 24 Mechanical Ventilator 60 03/26/20 21:00 95/58 03/26/20 21:00 91 24 91/52 (65) 93 03/26/20 20:00 60 03/26/20 20:00 Mechanical Ventilator Mechanical Ventilator 03/26/20 20:00 24 Mechanical Ventilator 60 03/26/20 20:00 105/68 03/26/20 20:00 97.7 89 24 105/68 (80) 96 03/26/20 20:00 88 03/26/20 19:30 88 24 105/64 (78) 95 03/26/20 19:10 87 24 40 03/26/20 19:00 88 24 108/65 (79) 96 03/26/20 19:00 24 Endotracheal Tube 40 03/26/20 19:00 108/65 03/26/20 18:15 88 24 94/50 (65) 94 03/26/20 18:00 24 Endotracheal Tube 40 03/26/20 18:00 94/50 03/26/20 18:00 91 24 92/54 (67) 92 03/26/20 17:34 91 24 90/54 (66) 92 03/26/20 17:04 91 24 104/68 (80) 99 03/26/20 17:00 25 Endotracheal Tube 40 03/26/20 17:00 102/64 03/26/20 16:40 117/75 03/26/20 16:30 98.5 89 27 112/72 (85) 99 03/26/20 16:00 Mechanical Ventilator Mechanical Ventilator 03/26/20 16:00 24 Endotracheal Tube 60 03/26/20 16:00 117/75 03/26/20 16:00 60 03/26/20 16:00 89 27 117/75 (89) 99 03/26/20 16:00 89 03/26/20 15:45 89 24 124/84 (97) 99 03/26/20 15:30 90 24 111/69 (83) 99 03/26/20 15:30 89 24 124/84 (97) 99 03/26/20 15:15 90 24 106/66 (79) 99 03/26/20 15:05 88 24 40 03/26/20 15:00 24 Endotracheal Tube 60 03/26/20 15:00 106/66 03/26/20 15:00 91 24 141/84 (103) 100 03/26/20 14:30 91 24 139/81 (100) 100 03/26/20 14:00 24 Endotracheal Tube 60 03/26/20 14:00 135/42 03/26/20 14:00 91 24 141/79 (99) 99 03/26/20 13:30 92 24 125/76 (92) 100 03/26/20 13:00 24 Endotracheal Tube 60 03/26/20 13:00 124/74 03/26/20 13:00 93 24 124/73 (90) 99 03/26/20 12:30 93 31 123/70 (87) 99 03/26/20 12:00 Mechanical Ventilator Mechanical Ventilator 03/26/20 12:00 94 03/26/20 12:00 24 Endotracheal Tube 60 03/26/20 12:00 112/63 03/26/20 12:00 60 03/26/20 12:00 94 24 116/69 (85) 99 03/26/20 11:30 94 24 123/70 (87) 99 Intake and Output 03/26/20 03/27/20 19:00 07:00 Intake Total 1855.969 ml 1285.84538 ml Output Total 3500 ml 1600 ml Balance -1644.031 ml -314.65580 ml Free Water 800 ml 300 ml IV Total 635.969 ml 565.11308 ml Tube Feeding 420 ml 420 ml Output Urine Total 3500 ml 1600 ml # Bowel Movements 50 Laboratory Tests 03/27/20 04:46: White Blood Count 18.0H, Red Blood Count 2.95L, Hemoglobin 10.3L, Hematocrit 32.4L, Mean Corpuscular Volume 110H, Mean Corpuscular Hemoglobin 34.8H, Mean Corpuscular Hemoglobin Concent 31.7L, Red Cell Distribution Width 22.7H, Platelet Count 154, Mean Platelet Volume 6.9, Neutrophils (%) (Auto) , Lymphocytes (%) (Auto) , Monocytes (%) (Auto) , Eosinophils (%) (Auto) , Basophils (%) (Auto) , Differential Total Cells Counted 100, Neutrophils % ( Manual) 83H, Lymphocytes % (Manual) 8L, Monocytes % (Manual) 9, Eosinophils % ( Manual) 0, Basophils % (Manual) 0, Band Neutrophils 0, Nucleated Red Blood Cells 3, Platelet Estimate Adequate, Platelet Morphology Normal, Hypochromasia 1 +, Anisocytosis 3+, Macrocytosis 2+, Sodium Level 171*H, Potassium Level 3.6, Chloride Level 122H, Carbon Dioxide Level > 45*H, Blood Urea Nitrogen 29H, Creatinine 0.8, Estimat Glomerular Filtration Rate > 60, Glucose Level 304H, Uric Acid 5.7, Calcium Level 9.5, Phosphorus Level 3.7, Magnesium Level 3.0H, Total Bilirubin 2.3H, Direct Bilirubin 1.6H, Aspartate Amino Transf (AST/SGOT) 261H, Alanine Aminotransferase (ALT/SGPT) 210H, Alkaline Phosphatase 200H, Ammonia 65H, C-Reactive Protein, Quantitative 2.6H, Pro-B-Type Natriuretic Peptide 4916H, Total Protein 7.4, Albumin 2.4L, Globulin 5.0, Albumin/Globulin Ratio 0.5L, Thyroid Stimulating Hormone (TSH) 3.769H 03/27/20 08:05: Arterial Blood pH 7.402, Arterial Blood Partial Pressure CO2 75.4*H, Arterial Blood Partial Pressure O2 72.1L, Arterial Blood HCO3 45.9*H, Arterial Blood Oxygen Saturation 92.1L, Arterial Blood Base Excess 18.0*H, Joaquin Test Positive Height (Feet): 5 Height (Inches): 1.00 Weight (Pounds): 229 General Appearance: no apparent distress EENT: normal ENT inspection Neck: supple Cardiovascular: tachycardia Respiratory/Chest: decreased breath sounds Abdomen: soft, hypoactive bowel sounds Extremities: non-tender Tam Spicer MD March 27, 2020 11:29
--- NOTE | 2020-03-27 11:59 | Hematology/Onc Progress Note ---
Assessment/Plan Assessment/Plan Assessment and Recs # Pancytopenia -- multiple etiologies could be related to underlying liver disease, medication-induced, infection versus viral syndrome versus underlying bone marrow cause, in this case, has severe liver disease and cirrhosis, HEP C++ , also cellulitis, COVID19++ --> peripheral smear has been ordered and does not show significant abnormalities and none noted --> Medications have been reviewed --> Continue to monitor for improvement, trend cbc --> Hep panel and HIV are both negative --> US abd ordered to r/o cirrhosis and hepatosplenomegaly ->CIRRHOSIS IS NOTED , LARGE SPLEEN --> reverse isolation if ANC is <2000 --> Give neupogen if ANC <1000 --> Transfuse if hgb <7, with 1 unit prbc --> anemia panel ordered as well-->CW acd --> hgb trend 7-->7.1-->8.4-->8.2 -->8.7-->9.9-->9.2-->9.5-->9.1 --> plt 145k-->152-->162k-->149k-->121k-->171k-->149-->163 --> wbc 3.4-->3.5->3.9->4.4-->11-->10.8 -->15 --> abx: sameer/rifaximin-->levaquin /vanc # Leukocytosis with Cellulitis of the lower extremities --> continue abx as needed as per id --> Started on IV antibiotics-->azithro/cefepime-->levaquin --> as per surg recs, wound care --> also is aon steriods # Ftt --> remains on mirtazapine # Elevated LFTS --> as per gi --> due to cirrhosis # Respiratory failure --> s/p intubation 03/16 --> prone positioning as needed by pulm # Dvt ppx lovenox sq The timing of this note does not necessarily reflect the time of the patient was seen. Greatly appreciate consultation. Subjective Allergies: Coded Allergies: No Known Allergies (Unverified , 02/29/20) Subjective 03/02 no events, no bleeding, hgb 7.1, no hemolysis 03/03 s/p blood, hgb improved to 8.4, stool ob negtive, on abx 03/05 asleep, no acute distress, hgb 8.2 03/06 remains comfortable, on abx, plt remains low 03/07 is on nonrebreather, no night sweats, labs are noted 03/08 labs reviewed, being diuresed, seen by cards, psych, labs noted 03/09 lasix adjusted, wbc remains low at 3.9, reviewed meds, smear 03/10 no night sweats, no bleeding, labs noted, smear noted 03/12 labs noted, none completed, have reordered, cellulitis better 03/13 is continuing with chest pain, cards aware, no further studies until covid neg 03/14 labs noted, no bleeding, diuresis as needed, hgb stable 03/15 alseep is cooperative, no bleeding, meds noted 03/16 no bleeding or chills, hgb 10.8, no night sweats, no major events 03/17 now intubated, no bleeding, labs noted, dw rn 03/19 remains intubated, no bleeding, labs noted, on pressors 03/20 prone posiition, seen by gi and renal, nob leeding, hgb 10.1 03/21 sedated, remains agitated, pulling on 2p restraints, no bleeding 03/22 icu, h/h stable, finished plaq/zithro, no acute distress 03/23 in icu, remains restless no bleeding, labs noted, no bleeding 03/24 in icu, poor prognosis, no night sweats, no fc 03/26 on vent, unresponsive, no bleeding, wbc high is on abx and steriods 03/27 remains on vent, ngt, no bleeding, already on abx on steriods Objective Objective Current Medications Medications (Trade) Dose Ordered Sig/Dolores Route PRN Reason Start Time Stop Time Status Last Admin Dose Admin Acetaminophen (Tylenol) 650 mg Q4H PRN ORAL Mild Pain (Pain Scale 1-3) 03/13/20 14:53 04/12/20 14:52 03/25/20 12:35 Acetaminophen (Tylenol) 650 mg Q4H PRN ORAL Temp >100 03/13/20 14:53 04/12/20 14:52 03/25/20 17:16 Chlorhexidine Gluconate (Lucretia-Hex 2%) 1 applic DAILY@2000 TOPIC 03/13/20 20:00 06/11/20 19:59 03/26/20 19:49 Dextrose 1,000 ml @ 100 mls/hr Q10H IV 03/27/20 08:00 04/26/20 07:59 03/27/20 09:01 Dextrose (Dextrose 50%) 25 ml Q30M PRN IV Hypoglycemia 03/26/20 08:45 06/24/20 08:44 Dextrose (Dextrose 50%) 50 ml Q30M PRN IV Hypoglycemia 03/26/20 08:45 06/24/20 08:44 Dopamine HCl/ Dextrose 250 ml @ 0 mls/hr Q24H IV 03/16/20 19:30 06/14/20 19:29 03/27/20 09:34 Enoxaparin Sodium (Lovenox) 100 mg EVERY 12 HOURS SUBQ 03/23/20 21:00 06/21/20 20:59 03/27/20 09:03 Fentanyl Citrate 2500 mcg/Sodium Chloride 250 ml @ 0 mls/hr Q24H IV 03/24/20 12:30 03/31/20 12:29 03/25/20 22:06 Hydralazine HCl (Apresoline) 10 mg Q6H PRN IV For High Blood Pressure 03/24/20 16:45 06/22/20 16:44 Insulin Aspart (NovoLOG) EVERY 4 HOURS SUBQ 03/26/20 09:00 06/24/20 08:59 03/27/20 09:04 Insulin Detemir (Levemir) 30 units BID SUBQ 03/27/20 09:00 06/20/20 18:59 03/27/20 09:04 Lactulose (Cephulac) 15 gm TID ORAL 03/24/20 13:00 04/23/20 12:59 03/27/20 09:01 Levofloxacin (Levaquin) 750 mg DAILY NG 03/28/20 09:00 04/04/20 08:59 Levothyroxine Sodium (Synthroid) 50 mcg DAILY IV 03/21/20 09:00 04/17/20 11:59 03/27/20 09:01 Lorazepam (Ativan 2mg/ml 1ml) 1 mg Q2H PRN IV For Anxiety 03/25/20 16:30 04/01/20 16:29 03/25/20 23:39 Methylprednisolone Sodium Succinate (Solu-MEDROL) 20 mg EVERY 12 HOURS IVP 03/27/20 09:00 06/17/20 20:59 03/27/20 09:02 Metoclopramide HCl (Reglan) 5 mg Q6HR IVP 03/24/20 12:00 04/23/20 11:59 03/27/20 05:15 Midodrine (Pro-Amatine) 10 mg THREE TIMES A DAY NG 03/27/20 09:00 06/20/20 12:29 03/27/20 09:10 Mirtazapine (Remeron) 7.5 mg BEDTIME PRN ORAL SLEEP 03/13/20 14:55 06/11/20 14:54 Non-Formulary Medication (Non-Formulary Med) 1 ea DAILY IV 03/18/20 09:00 04/17/20 08:59 UNV Norepinephrine Bitartrate 4 mg/ Dextrose 250 ml @ 0 mls/hr Q24H PRN IV For hypotension 03/25/20 16:30 04/24/20 16:29 Vasopressin 100 units/Sodium Chloride 100 ml @ 0 mls/hr Q24H PRN IV For hypotension 03/16/20 11:00 04/15/20 10:59 03/19/20 18:03 Last 24 Hour Vital Signs Date Time Temp Pulse Resp B/P (MAP) Pulse Ox O2 Delivery O2 Flow Rate FiO2 03/27/20 11:00 88 24 92/49 (63) 94 03/27/20 10:52 87 24 40 03/27/20 10:30 87 24 101/56 (71) 94 03/27/20 10:00 86 24 106/64 (78) 95 03/27/20 09:45 85 24 110/66 (81) 96 03/27/20 09:34 126/69 03/27/20 09:30 85 24 126/69 (88) 98 03/27/20 09:15 84 23 90/50 (63) 95 03/27/20 09:00 85 24 115/71 (86) 97 03/27/20 09:00 24 Endotracheal Tube 35 03/27/20 08:30 86 24 126/70 (88) 98 03/27/20 08:09 86 24 40 03/27/20 08:00 98.9 87 24 114/64 (81) 97 03/27/20 08:00 Mechanical Ventilator Mechanical Ventilator 03/27/20 08:00 24 Endotracheal Tube 35 03/27/20 08:00 116/65 03/27/20 08:00 40 03/27/20 07:13 91 03/27/20 07:00 24 Mechanical Ventilator 35 03/27/20 07:00 95/52 03/27/20 07:00 91 24 95/52 (66) 93 03/27/20 06:45 93/53 03/27/20 06:30 90/50 03/27/20 06:15 94/56 03/27/20 06:00 24 Mechanical Ventilator 35 03/27/20 06:00 104/60 03/27/20 06:00 88 24 104/60 (75) 94 03/27/20 05:45 104/60 03/27/20 05:30 105/66 03/27/20 05:15 109/68 03/27/20 05:00 88 24 116/70 (85) 98 03/27/20 05:00 24 Mechanical Ventilator 35 03/27/20 05:00 116/70 03/27/20 04:45 119/69 03/27/20 04:30 105/63 03/27/20 04:15 92/48 03/27/20 04:00 25 Mechanical Ventilator 40 03/27/20 04:00 98/57 03/27/20 04:00 87 03/27/20 04:00 Mechanical Ventilator Mechanical Ventilator 03/27/20 04:00 40 03/27/20 04:00 99.0 87 25 98/57 (71) 97 03/27/20 03:36 87 23 40 03/27/20 03:00 24 Mechanical Ventilator 40 03/27/20 03:00 103/62 03/27/20 03:00 88 24 103/62 (76) 95 03/27/20 02:00 87 24 119/74 (89) 97 03/27/20 02:00 24 Mechanical Ventilator 40 03/27/20 02:00 107/63 03/27/20 01:00 88 24 116/73 (87) 97 03/27/20 01:00 24 Mechanical Ventilator 40 03/27/20 01:00 116/73 03/27/20 00:00 99.8 92 24 113/66 (82) 94 03/27/20 00:00 Mechanical Ventilator Mechanical Ventilator 03/27/20 00:00 92 03/27/20 00:00 24 Mechanical Ventilator 40 03/27/20 00:00 113/66 03/26/20 23:15 88 23 40 03/26/20 23:00 24 Mechanical Ventilator 40 03/26/20 23:00 118/72 03/26/20 23:00 118/72 03/26/20 23:00 89 24 118/72 (87) 95 03/26/20 22:30 87 24 124/73 (90) 96 03/26/20 22:00 89 24 104/60 (75) 95 03/26/20 22:00 24 Mechanical Ventilator 40 03/26/20 22:00 125/80 03/26/20 21:00 24 Mechanical Ventilator 60 03/26/20 21:00 95/58 03/26/20 21:00 91 24 91/52 (65) 93 03/26/20 20:00 60 03/26/20 20:00 Mechanical Ventilator Mechanical Ventilator 03/26/20 20:00 24 Mechanical Ventilator 60 03/26/20 20:00 105/68 03/26/20 20:00 97.7 89 24 105/68 (80) 96 03/26/20 20:00 88 03/26/20 19:30 88 24 105/64 (78) 95 03/26/20 19:10 87 24 40 03/26/20 19:00 88 24 108/65 (79) 96 03/26/20 19:00 24 Endotracheal Tube 40 03/26/20 19:00 108/65 03/26/20 18:15 88 24 94/50 (65) 94 03/26/20 18:00 24 Endotracheal Tube 40 03/26/20 18:00 94/50 03/26/20 18:00 91 24 92/54 (67) 92 03/26/20 17:34 91 24 90/54 (66) 92 03/26/20 17:04 91 24 104/68 (80) 99 03/26/20 17:00 25 Endotracheal Tube 40 03/26/20 17:00 102/64 03/26/20 16:40 117/75 03/26/20 16:30 98.5 89 27 112/72 (85) 99 03/26/20 16:00 Mechanical Ventilator Mechanical Ventilator 03/26/20 16:00 24 Endotracheal Tube 60 03/26/20 16:00 117/75 03/26/20 16:00 60 03/26/20 16:00 89 27 117/75 (89) 99 03/26/20 16:00 89 03/26/20 15:45 89 24 124/84 (97) 99 03/26/20 15:30 90 24 111/69 (83) 99 03/26/20 15:30 89 24 124/84 (97) 99 03/26/20 15:15 90 24 106/66 (79) 99 03/26/20 15:05 88 24 40 03/26/20 15:00 24 Endotracheal Tube 60 03/26/20 15:00 106/66 03/26/20 15:00 91 24 141/84 (103) 100 03/26/20 14:30 91 24 139/81 (100) 100 03/26/20 14:00 24 Endotracheal Tube 60 03/26/20 14:00 135/42 03/26/20 14:00 91 24 141/79 (99) 99 03/26/20 13:30 92 24 125/76 (92) 100 03/26/20 13:00 24 Endotracheal Tube 60 03/26/20 13:00 124/74 03/26/20 13:00 93 24 124/73 (90) 99 03/26/20 12:30 93 31 123/70 (87) 99 03/26/20 12:00 Mechanical Ventilator Mechanical Ventilator 03/26/20 12:00 94 03/26/20 12:00 24 Endotracheal Tube 60 03/26/20 12:00 112/63 03/26/20 12:00 60 03/26/20 12:00 94 24 116/69 (85) 99 03/26/20 11:30 94 24 123/70 (87) 99 03/26/20 11:00 95 24 119/73 (88) 99 03/26/20 11:00 95 31 119/73 (88) 99 03/26/20 11:00 24 Endotracheal Tube 60 03/26/20 11:00 116/69 03/26/20 10:45 94 24 117/67 (84) 99 03/26/20 10:40 93 24 40 03/26/20 10:30 94 24 123/71 (88) 99 03/26/20 10:15 93 24 133/75 (94) 99 03/26/20 10:07 85/47 03/26/20 10:00 24 Endotracheal Tube 60 03/26/20 10:00 92 24 85/47 (60) 97 03/26/20 09:30 93 24 97/59 (72) 98 03/26/20 09:00 24 Endotracheal Tube 60 03/26/20 09:00 95/58 03/26/20 09:00 94 24 117/72 (87) 99 03/26/20 08:30 94 25 101/76 (84) 98 03/26/20 08:00 Mechanical Ventilator Mechanical Ventilator 03/26/20 08:00 99.2 94 24 94/58 (70) 98 03/26/20 08:00 24 Endotracheal Tube 60 03/26/20 08:00 97/60 03/26/20 08:00 60 03/26/20 08:00 94 03/26/20 07:30 94 25 100/66 (77) 98 03/26/20 07:05 94 24 40 03/26/20 07:00 93 24 114/66 (82) 98 03/26/20 07:00 24 Endotracheal Tube 60 03/26/20 07:00 102/62 03/26/20 06:45 93 24 91/54 (66) 90 03/26/20 06:36 93 24 87/51 (63) 90 03/26/20 06:35 94 24 85/50 (62) 90 03/26/20 06:30 94 24 85/49 (61) 90 03/26/20 06:15 94 24 89/51 (64) 90 03/26/20 06:00 94 24 107/69 (82) 97 03/26/20 05:30 95 24 112/69 (83) 97 03/26/20 05:00 95 24 119/71 (87) 98 03/26/20 05:00 24 Mechanical Ventilator 60 03/26/20 05:00 112/69 03/26/20 04:38 109/63 03/26/20 04:30 95 24 119/67 (84) 98 03/26/20 04:00 98.1 95 24 110/68 (82) 96 03/26/20 04:00 85 03/26/20 04:00 Mechanical Ventilator Mechanical Ventilator 03/26/20 04:00 24 Mechanical Ventilator 60 03/26/20 04:00 112/63 03/26/20 04:00 60 03/26/20 03:00 97 24 110/69 (83) 91 03/26/20 03:00 24 Mechanical Ventilator 60 03/26/20 03:00 136/69 03/26/20 02:30 97 24 120/73 (89) 90 03/26/20 02:00 98 25 128/72 (90) 90 03/26/20 02:00 24 Mechanical Ventilator 40 03/26/20 02:00 125/63 03/26/20 01:39 100 24 40 03/26/20 01:30 99 24 123/73 (90) 90 03/26/20 01:00 101 24 111/64 (80) 89 03/26/20 01:00 24 Mechanical Ventilator 40 03/26/20 01:00 100/56 03/26/20 00:45 101 24 109/63 (78) 96 03/26/20 00:38 102 24 91/49 (63) 96 03/26/20 00:36 101 24 74/41 (52) 96 03/26/20 00:30 101 24 67/40 (49) 92 03/26/20 00:15 87 24 90/43 (59) 96 03/26/20 00:00 97.5 71 24 95/44 (61) 96 03/26/20 00:00 Mechanical Ventilator Mechanical Ventilator 03/26/20 00:00 24 Mechanical Ventilator 40 03/26/20 00:00 77/39 03/26/20 00:00 40 03/26/20 00:00 102 03/25/20 23:45 72 24 120/59 (79) 92 03/25/20 23:30 73 24 132/62 (85) 96 03/25/20 23:15 74 24 113/54 (73) 100 03/25/20 23:00 64 24 110/57 (74) 100 03/25/20 23:00 24 Mechanical Ventilator 40 03/25/20 23:00 132/62 03/25/20 22:52 62 26 40 03/25/20 22:30 62 24 106/47 (66) 100 03/25/20 22:15 61 24 101/50 (67) 100 03/25/20 22:06 24 Mechanical Ventilator 40 03/25/20 22:00 98.1 60 24 102/50 (67) 97 03/25/20 22:00 99/49 03/25/20 21:45 58 24 102/56 (71) 97 03/25/20 21:30 59 24 109/59 (76) 97 03/25/20 21:15 77 24 106/53 (70) 95 03/25/20 21:00 76 24 95/52 (66) 93 03/25/20 21:00 104/59 03/25/20 20:45 69 24 96/49 (65) 95 03/25/20 20:30 63 24 97/49 (65) 98 03/25/20 20:15 58 24 128/71 (90) 98 03/25/20 20:11 147/77 03/25/20 20:00 61 03/25/20 20:00 40 03/25/20 20:00 97.3 62 24 163/84 (110) 98 03/25/20 20:00 Mechanical Ventilator Mechanical Ventilator 03/25/20 19:45 56 24 172/91 (118) 97 03/25/20 19:34 49 24 132/63 (86) 96 03/25/20 19:30 62 24 74/34 (47) 96 03/25/20 19:17 57 28 100 Mechanical Ventilator 40 03/25/20 19:16 57 28 40 03/25/20 19:15 76 24 86/45 (59) 98 03/25/20 19:00 20 147/77 Endotracheal Tube 40 03/25/20 19:00 147/77 03/25/20 19:00 56 28 147/77 (100) 97 03/25/20 18:45 58 153/66 (95) 99 03/25/20 18:30 58 12 139/69 (92) 98 03/25/20 18:15 61 20 138/71 (93) 98 03/25/20 18:00 62 21 137/70 (92) 99 03/25/20 18:00 20 138/68 Endotracheal Tube 40 03/25/20 18:00 138/68 03/25/20 17:46 99.8 03/25/20 17:30 61 21 138/68 (91) 98 03/25/20 17:29 122/67 03/25/20 17:00 100.9 76 28 122/67 (85) 100 03/25/20 17:00 20 122/67 Endotracheal Tube 40 03/25/20 16:30 78 21 157/75 (102) 97 03/25/20 16:00 40 03/25/20 16:00 20 111/53 Endotracheal Tube 40 03/25/20 16:00 Mechanical Ventilator Mechanical Ventilator 03/25/20 16:00 70 21 97/27 (50) 96 03/25/20 16:00 70 03/25/20 15:30 76 20 135/61 (85) 95 03/25/20 15:09 71 30 40 03/25/20 15:00 21 135/61 Endotracheal Tube 40 03/25/20 15:00 135/61 03/25/20 15:00 76 26 135/61 (85) 95 03/25/20 14:30 71 26 90/38 (55) 96 03/25/20 14:00 72 24 79/34 (49) 100 03/25/20 14:00 28 79/34 Endotracheal Tube 40 03/25/20 14:00 79/34 03/25/20 13:30 69 26 130/74 (92) 100 03/25/20 13:07 26 127/73 Endotracheal Tube 93.0 90 03/25/20 13:05 100.1 03/25/20 13:00 100.5 68 26 127/73 (91) 100 03/25/20 13:00 26 123/73 Endotracheal Tube 90 03/25/20 13:00 26 130/74 Endotracheal Tube 03/25/20 13:00 130/74 03/25/20 13:00 130/74 03/25/20 12:00 66 23 116/61 (79) 100 03/25/20 12:00 90 03/25/20 12:00 66 03/25/20 12:00 26 116/61 Endotracheal Tube 90 03/25/20 12:00 116/61 03/25/20 12:00 Mechanical Ventilator Mechanical Ventilator Intake and Output 03/26/20 03/27/20 19:00 07:00 Intake Total 1855.969 ml 1285.27676 ml Output Total 3500 ml 1600 ml Balance -1644.031 ml -314.93429 ml Free Water 800 ml 300 ml IV Total 635.969 ml 565.38170 ml Tube Feeding 420 ml 420 ml Output Urine Total 3500 ml 1600 ml # Bowel Movements 50 Labs Test 03/25/20 04:00 03/25/20 11:54 03/26/20 04:00 03/26/20 07:32 White Blood Count 21.1 K/UL (4.8-10.8) 14.6 K/UL (4.8-10.8) Red Blood Count 2.90 M/UL (4.20-5.40) 2.79 M/UL (4.20-5.40) Hemoglobin 10.0 G/DL (12.0-16.0) 9.5 G/DL (12.0-16.0) Hematocrit 30.0 % (37.0-47.0) 29.1 % (37.0-47.0) Mean Corpuscular Volume 103 FL (80-99) 104 FL (80-99) Mean Corpuscular Hemoglobin 34.6 PG (27.0-31.0) 34.1 PG (27.0-31.0) Mean Corpuscular Hemoglobin Concent 33.4 G/DL (32.0-36.0) 32.7 G/DL (32.0-36.0) Red Cell Distribution Width 19.3 % (11.6-14.8) 19.7 % (11.6-14.8) Platelet Count 187 K/UL (150-450) 166 K/UL (150-450) Mean Platelet Volume 5.7 FL (6.5-10.1) 7.1 FL (6.5-10.1) Neutrophils (%) (Auto) % (45.0-75.0) % (45.0-75.0) Lymphocytes (%) (Auto) % (20.0-45.0) % (20.0-45.0) Monocytes (%) (Auto) % (1.0-10.0) % (1.0-10.0) Eosinophils (%) (Auto) % (0.0-3.0) % (0.0-3.0) Basophils (%) (Auto) % (0.0-2.0) % (0.0-2.0) Differential Total Cells Counted 100 100 Neutrophils % (Manual) 89 % (45-75) 90 % (45-75) Lymphocytes % (Manual) 3 % (20-45) 5 % (20-45) Monocytes % (Manual) 8 % (1-10) 5 % (1-10) Eosinophils % (Manual) 0 % (0-3) 0 % (0-3) Basophils % (Manual) 0 % (0-2) 0 % (0-2) Band Neutrophils 0 % (0-8) 0 % (0-8) Platelet Estimate Adequate Adequate Platelet Morphology Normal Normal Hypochromasia 1+ 1+ Anisocytosis 2+ 1+ Macrocytosis 1+ 1+ Sodium Level 144 MMOL/L (136-145) 154 MMOL/L (136-145) Potassium Level 3.6 MMOL/L (3.5-5.1) 4.5 MMOL/L (3.5-5.1) Chloride Level 98 MMOL/L (98-107) 109 MMOL/L (98-107) Carbon Dioxide Level 41 MMOL/L (21-32) > 45 MMOL/L (21-32) Anion Gap 5 mmol/L (5-15) Blood Urea Nitrogen 20 mg/dL (7-18) 25 mg/dL (7-18) Creatinine 0.7 MG/DL (0.55-1.30) 0.8 MG/DL (0.55-1.30) Estimat Glomerular Filtration Rate > 60 mL/min (>60) > 60 mL/min (>60) Glucose Level 268 MG/DL (74-106) 310 MG/DL (74-106) Calcium Level 8.7 MG/DL (8.5-10.1) 8.7 MG/DL (8.5-10.1) Phosphorus Level 2.3 MG/DL (2.5-4.9) 3.3 MG/DL (2.5-4.9) Magnesium Level 2.1 MG/DL (1.8-2.4) 2.4 MG/DL (1.8-2.4) Total Bilirubin 2.7 MG/DL (0.2-1.0) 2.6 MG/DL (0.2-1.0) Direct Bilirubin 1.4 MG/DL (0.0-0.3) 1.6 MG/DL (0.0-0.3) Aspartate Amino Transf (AST/SGOT) 192 U/L (15-37) 203 U/L (15-37) Alanine Aminotransferase (ALT/SGPT) 143 U/L (12-78) 161 U/L (12-78) Alkaline Phosphatase 297 U/L (46-116) 223 U/L (46-116) C-Reactive Protein, Quantitative 4.1 mg/dL (0.00-0.90) 2.8 mg/dL (0.00-0.90) Pro-B-Type Natriuretic Peptide 54436 pg/mL (0-125) 94779 pg/mL (0-125) Total Protein 8.5 G/DL (6.4-8.2) 7.6 G/DL (6.4-8.2) Albumin 2.7 G/DL (3.4-5.0) 2.4 G/DL (3.4-5.0) Globulin 5.8 g/dL 5.2 g/dL Albumin/Globulin Ratio 0.5 (1.0-2.7) 0.5 (1.0-2.7) Arterial Blood pH 7.500 (7.350-7.450) 7.439 (7.350-7.450) Arterial Blood Partial Pressure CO2 56.0 mmHg (35.0-45.0) 67.6 mmHg (35.0-45.0) Arterial Blood Partial Pressure O2 234.9 mmHg (75.0-100.0) 104.7 mmHg (75.0-100.0) Arterial Blood HCO3 42.7 mmol/L (22.0-26.0) 44.7 mmol/L (22.0-26.0) Arterial Blood Oxygen Saturation 99.2 % (95-100) 96.6 % (95-100) Arterial Blood Base Excess 17.3 (-2-2) 17.8 (-2-2) Joaquin Test Positive Positive Test 03/26/20 08:30 03/27/20 04:46 03/27/20 08:05 Vancomycin Level Trough 17.1 ug/mL (5.0-12.0) White Blood Count 18.0 K/UL (4.8-10.8) Red Blood Count 2.95 M/UL (4.20-5.40) Hemoglobin 10.3 G/DL (12.0-16.0) Hematocrit 32.4 % (37.0-47.0) Mean Corpuscular Volume 110 FL (80-99) Mean Corpuscular Hemoglobin 34.8 PG (27.0-31.0) Mean Corpuscular Hemoglobin Concent 31.7 G/DL (32.0-36.0) Red Cell Distribution Width 22.7 % (11.6-14.8) Platelet Count 154 K/UL (150-450) Mean Platelet Volume 6.9 FL (6.5-10.1) Neutrophils (%) (Auto) % (45.0-75.0) Lymphocytes (%) (Auto) % (20.0-45.0) Monocytes (%) (Auto) % (1.0-10.0) Eosinophils (%) (Auto) % (0.0-3.0) Basophils (%) (Auto) % (0.0-2.0) Differential Total Cells Counted 100 Neutrophils % (Manual) 83 % (45-75) Lymphocytes % (Manual) 8 % (20-45) Monocytes % (Manual) 9 % (1-10) Eosinophils % (Manual) 0 % (0-3) Basophils % (Manual) 0 % (0-2) Band Neutrophils 0 % (0-8) Nucleated Red Blood Cells 3 /100 WBC Platelet Estimate Adequate Platelet Morphology Normal Hypochromasia 1+ Anisocytosis 3+ Macrocytosis 2+ Sodium Level 171 MMOL/L (136-145) Potassium Level 3.6 MMOL/L (3.5-5.1) Chloride Level 122 MMOL/L (98-107) Carbon Dioxide Level > 45 MMOL/L (21-32) Blood Urea Nitrogen 29 mg/dL (7-18) Creatinine 0.8 MG/DL (0.55-1.30) Estimat Glomerular Filtration Rate > 60 mL/min (>60) Glucose Level 304 MG/DL (74-106) Uric Acid 5.7 MG/DL (2.6-7.2) Calcium Level 9.5 MG/DL (8.5-10.1) Phosphorus Level 3.7 MG/DL (2.5-4.9) Magnesium Level 3.0 MG/DL (1.8-2.4) Total Bilirubin 2.3 MG/DL (0.2-1.0) Direct Bilirubin 1.6 MG/DL (0.0-0.3) Aspartate Amino Transf (AST/SGOT) 261 U/L (15-37) Alanine Aminotransferase (ALT/SGPT) 210 U/L (12-78) Alkaline Phosphatase 200 U/L (46-116) Ammonia 65 umol/L (11-32) C-Reactive Protein, Quantitative 2.6 mg/dL (0.00-0.90) Pro-B-Type Natriuretic Peptide 4916 pg/mL (0-125) Total Protein 7.4 G/DL (6.4-8.2) Albumin 2.4 G/DL (3.4-5.0) Globulin 5.0 g/dL Albumin/Globulin Ratio 0.5 (1.0-2.7) Thyroid Stimulating Hormone (TSH) 3.769 uiU/mL (0.358-3.740) Arterial Blood pH 7.402 (7.350-7.450) Arterial Blood Partial Pressure CO2 75.4 mmHg (35.0-45.0) Arterial Blood Partial Pressure O2 72.1 mmHg (75.0-100.0) Arterial Blood HCO3 45.9 mmol/L (22.0-26.0) Arterial Blood Oxygen Saturation 92.1 % (95-100) Arterial Blood Base Excess 18.0 (-2-2) Joaquin Test Positive Height (Feet): 5 Height (Inches): 1.00 Weight (Pounds): 229 Objective Physical Exam: Vitals: reviewed General: NAD HEENT: nc, at Neck: supple Chest: crackles b/l, mech breath sounds ++intubated Cardiovascular: RRR, no s3, s4 EXT ++ Significant edema and erythema bilateral lower extremity, patient also has blistering on both feet given the edema, whittish overcrust/crusting++ Neurologic: sedated Skin: other - As above Brett Mcclain MD March 27, 2020 11:59
[2020-03-27] MEDS: fentaNYL Citrate 2,500 MCG in NS 200 ML IV SCH (12:30)
--- NOTE | 2020-03-27 13:38 | Surgery Progress Note ---
Surgery Progress Note Subjective Additional Comments worsening leukocytosis worsening lft's ill appearing overall on support cxr with slight improvement Objective Last 24 Hour Vital Signs Date Time Temp Pulse Resp B/P (MAP) Pulse Ox O2 Delivery O2 Flow Rate FiO2 03/27/20 11:00 88 24 92/49 (63) 94 03/27/20 10:52 87 24 40 03/27/20 10:30 87 24 101/56 (71) 94 03/27/20 10:00 86 24 106/64 (78) 95 03/27/20 09:45 85 24 110/66 (81) 96 03/27/20 09:34 126/69 03/27/20 09:30 85 24 126/69 (88) 98 03/27/20 09:15 84 23 90/50 (63) 95 03/27/20 09:00 85 24 115/71 (86) 97 03/27/20 09:00 24 Endotracheal Tube 35 03/27/20 08:30 86 24 126/70 (88) 98 03/27/20 08:09 86 24 40 03/27/20 08:00 98.9 87 24 114/64 (81) 97 03/27/20 08:00 Mechanical Ventilator Mechanical Ventilator 03/27/20 08:00 24 Endotracheal Tube 35 03/27/20 08:00 116/65 03/27/20 08:00 40 03/27/20 07:13 91 03/27/20 07:00 24 Mechanical Ventilator 35 03/27/20 07:00 95/52 03/27/20 07:00 91 24 95/52 (66) 93 03/27/20 06:45 93/53 03/27/20 06:30 90/50 03/27/20 06:15 94/56 03/27/20 06:00 24 Mechanical Ventilator 35 03/27/20 06:00 104/60 03/27/20 06:00 88 24 104/60 (75) 94 03/27/20 05:45 104/60 03/27/20 05:30 105/66 03/27/20 05:15 109/68 03/27/20 05:00 88 24 116/70 (85) 98 03/27/20 05:00 24 Mechanical Ventilator 35 03/27/20 05:00 116/70 03/27/20 04:45 119/69 03/27/20 04:30 105/63 03/27/20 04:15 92/48 03/27/20 04:00 25 Mechanical Ventilator 40 03/27/20 04:00 98/57 03/27/20 04:00 87 03/27/20 04:00 Mechanical Ventilator Mechanical Ventilator 03/27/20 04:00 40 03/27/20 04:00 99.0 87 25 98/57 (71) 97 03/27/20 03:36 87 23 40 03/27/20 03:00 24 Mechanical Ventilator 40 03/27/20 03:00 103/62 03/27/20 03:00 88 24 103/62 (76) 95 03/27/20 02:00 87 24 119/74 (89) 97 03/27/20 02:00 24 Mechanical Ventilator 40 03/27/20 02:00 107/63 03/27/20 01:00 88 24 116/73 (87) 97 03/27/20 01:00 24 Mechanical Ventilator 40 03/27/20 01:00 116/73 03/27/20 00:00 99.8 92 24 113/66 (82) 94 03/27/20 00:00 Mechanical Ventilator Mechanical Ventilator 03/27/20 00:00 92 03/27/20 00:00 24 Mechanical Ventilator 40 03/27/20 00:00 113/66 03/26/20 23:15 88 23 40 03/26/20 23:00 24 Mechanical Ventilator 40 03/26/20 23:00 118/72 03/26/20 23:00 118/72 03/26/20 23:00 89 24 118/72 (87) 95 03/26/20 22:30 87 24 124/73 (90) 96 03/26/20 22:00 89 24 104/60 (75) 95 03/26/20 22:00 24 Mechanical Ventilator 40 03/26/20 22:00 125/80 03/26/20 21:00 24 Mechanical Ventilator 60 03/26/20 21:00 95/58 03/26/20 21:00 91 24 91/52 (65) 93 03/26/20 20:00 60 03/26/20 20:00 Mechanical Ventilator Mechanical Ventilator 03/26/20 20:00 24 Mechanical Ventilator 60 03/26/20 20:00 105/68 03/26/20 20:00 97.7 89 24 105/68 (80) 96 03/26/20 20:00 88 03/26/20 19:30 88 24 105/64 (78) 95 03/26/20 19:10 87 24 40 03/26/20 19:00 88 24 108/65 (79) 96 03/26/20 19:00 24 Endotracheal Tube 40 03/26/20 19:00 108/65 03/26/20 18:15 88 24 94/50 (65) 94 03/26/20 18:00 24 Endotracheal Tube 40 03/26/20 18:00 94/50 03/26/20 18:00 91 24 92/54 (67) 92 03/26/20 17:34 91 24 90/54 (66) 92 03/26/20 17:04 91 24 104/68 (80) 99 03/26/20 17:00 25 Endotracheal Tube 40 03/26/20 17:00 102/64 03/26/20 16:40 117/75 03/26/20 16:30 98.5 89 27 112/72 (85) 99 03/26/20 16:00 Mechanical Ventilator Mechanical Ventilator 03/26/20 16:00 24 Endotracheal Tube 60 03/26/20 16:00 117/75 03/26/20 16:00 60 03/26/20 16:00 89 27 117/75 (89) 99 03/26/20 16:00 89 03/26/20 15:45 89 24 124/84 (97) 99 03/26/20 15:30 90 24 111/69 (83) 99 03/26/20 15:30 89 24 124/84 (97) 99 03/26/20 15:15 90 24 106/66 (79) 99 03/26/20 15:05 88 24 40 03/26/20 15:00 24 Endotracheal Tube 60 03/26/20 15:00 106/66 03/26/20 15:00 91 24 141/84 (103) 100 03/26/20 14:30 91 24 139/81 (100) 100 03/26/20 14:00 24 Endotracheal Tube 60 03/26/20 14:00 135/42 03/26/20 14:00 91 24 141/79 (99) 99 I&O Intake and Output 03/26/20 03/27/20 18:59 06:59 Intake Total 1855.969 ml 1311.35981 ml Output Total 3550 ml 1450 ml Balance -1694.031 ml -138.80830 ml Free Water 800 ml 300 ml IV Total 635.969 ml 591.28468 ml Tube Feeding 420 ml 420 ml Output Urine Total 3550 ml 1450 ml # Bowel Movements 50 Dressing: dry Wound: clean Cardiovascular: RSR Respiratory: decreased breath sounds Abdomen: soft, non-tender, present bowel sounds, non-distended Extremities: edema, no cyanosis, other Laboratory Tests Test 03/27/20 04:46 03/27/20 08:05 White Blood Count 18.0 K/UL (4.8-10.8) H Red Blood Count 2.95 M/UL (4.20-5.40) L Hemoglobin 10.3 G/DL (12.0-16.0) L Hematocrit 32.4 % (37.0-47.0) L Mean Corpuscular Volume 110 FL (80-99) H Mean Corpuscular Hemoglobin 34.8 PG (27.0-31.0) H Mean Corpuscular Hemoglobin Concent 31.7 G/DL (32.0-36.0) L Red Cell Distribution Width 22.7 % (11.6-14.8) H Platelet Count 154 K/UL (150-450) Mean Platelet Volume 6.9 FL (6.5-10.1) Neutrophils (%) (Auto) % (45.0-75.0) Lymphocytes (%) (Auto) % (20.0-45.0) Monocytes (%) (Auto) % (1.0-10.0) Eosinophils (%) (Auto) % (0.0-3.0) Basophils (%) (Auto) % (0.0-2.0) Differential Total Cells Counted 100 Neutrophils % (Manual) 83 % (45-75) H Lymphocytes % (Manual) 8 % (20-45) L Monocytes % (Manual) 9 % (1-10) Eosinophils % (Manual) 0 % (0-3) Basophils % (Manual) 0 % (0-2) Band Neutrophils 0 % (0-8) Nucleated Red Blood Cells 3 /100 WBC Platelet Estimate Adequate Platelet Morphology Normal Hypochromasia 1+ Anisocytosis 3+ Macrocytosis 2+ Sodium Level 171 MMOL/L (136-145) *H Potassium Level 3.6 MMOL/L (3.5-5.1) Chloride Level 122 MMOL/L (98-107) H Carbon Dioxide Level > 45 MMOL/L (21-32) *H Blood Urea Nitrogen 29 mg/dL (7-18) H Creatinine 0.8 MG/DL (0.55-1.30) Estimat Glomerular Filtration Rate > 60 mL/min (>60) Glucose Level 304 MG/DL (74-106) H Uric Acid 5.7 MG/DL (2.6-7.2) Calcium Level 9.5 MG/DL (8.5-10.1) Phosphorus Level 3.7 MG/DL (2.5-4.9) Magnesium Level 3.0 MG/DL (1.8-2.4) H Total Bilirubin 2.3 MG/DL (0.2-1.0) H Direct Bilirubin 1.6 MG/DL (0.0-0.3) H Aspartate Amino Transf (AST/SGOT) 261 U/L (15-37) H Alanine Aminotransferase (ALT/SGPT) 210 U/L (12-78) H Alkaline Phosphatase 200 U/L (46-116) H Ammonia 65 umol/L (11-32) H C-Reactive Protein, Quantitative 2.6 mg/dL (0.00-0.90) H Pro-B-Type Natriuretic Peptide 4916 pg/mL (0-125) H Total Protein 7.4 G/DL (6.4-8.2) Albumin 2.4 G/DL (3.4-5.0) L Globulin 5.0 g/dL Albumin/Globulin Ratio 0.5 (1.0-2.7) L Thyroid Stimulating Hormone (TSH) 3.769 uiU/mL (0.358-3.740) Arterial Blood pH 7.402 (7.350-7.450) Arterial Blood Partial Pressure CO2 75.4 mmHg (35.0-45.0) *H Arterial Blood Partial Pressure O2 72.1 mmHg (75.0-100.0) L Arterial Blood HCO3 45.9 mmol/L (22.0-26.0) *H Arterial Blood Oxygen Saturation 92.1 % (95-100) L Arterial Blood Base Excess 18.0 (-2-2) *H Joaquin Test Positive Plan Problems: (1) Cellulitis Assessment & Plan: bilateral lower extremity cellulitis / edema chronic venous status changes dermatitis no abscess no purulent drainage ulcerations forming. keep lower extremity elevated while in bed apply skin protectant / moisturizing cream daily okay to shower okay to wrap soft after cream abx as per ID for cellulitis okay for diet duplex ordered trend labs will follow with recs thank you No evidence of deep venous thrombosis involving the visualized veins of the RIGHT lower extremity. refused eval of left COVID ++ cxr noted cont current supportive care improving labs stable improving slowly wean pressors as tolerated Patient is acutely worsened intubated on vent support 2 pressors now worsening labs worsening Prognosis is guarded we will continue with maximal support efforts weaning vent weaning pressors leukocytosis trend lft's Diffuse bilateral interstitial and airspace opacities (2) COVID-19 Assessment & Plan: see above Theron Sotomayor March 27, 2020 13:38
[2020-03-27] MEDS ORDERED: NS 275ml ONE (17:08)
[2020-03-27] MEDS ORDERED: D5W 550ml IV ONE (17:08)
[2020-03-27] MEDS: Dyna-Hex 2% Top Sol 2oz TOPIC SCH (20:46)
[2020-03-27] MEDS: Levemir Flexpen SUBQ SCH (21:09)
--- NOTE | 2020-03-27 21:40 | General Progress Note ---
Assessment/Plan Problem List: (1) Cellulitis ICD Codes: L03.90 - Cellulitis, unspecified SNOMED: 409501713 Qualifiers: Qualified Codes: L03.119 - Cellulitis of unspecified part of limb Status: progressing, unchanged Assessment/Plan: hypernatrmia very dehydrated worsening hypernatremia arf poor prognosis covid positvie sepsis metabolic conctraction cellulitis lower extremity worsening leukocytosis elev LFT sepsis anemia.stable h/h cirrhosis elevated trop Subjective ROS Limited/Unobtainable: Yes Allergies: Coded Allergies: No Known Allergies (Unverified , 02/29/20) Objective Last 24 Hour Vital Signs Date Time Temp Pulse Resp B/P (MAP) Pulse Ox O2 Delivery O2 Flow Rate FiO2 03/27/20 21:00 83 24 104/54 (71) 100 03/27/20 20:00 82 03/27/20 20:00 Mechanical Ventilator Mechanical Ventilator 03/27/20 20:00 50 03/27/20 20:00 97.7 82 24 113/60 (77) 100 03/27/20 19:54 82 24 50 03/27/20 19:45 82 24 112/58 (76) 100 03/27/20 19:30 83 24 107/55 (72) 100 03/27/20 19:15 84 24 105/54 (71) 100 03/27/20 19:00 24 Endotracheal Tube 50 03/27/20 19:00 89/47 03/27/20 19:00 86 24 89/47 (61) 99 03/27/20 18:30 85 24 88/45 (59) 99 03/27/20 18:07 91/50 03/27/20 18:00 84 24 91/50 (64) 98 03/27/20 18:00 24 Endotracheal Tube 50 03/27/20 18:00 86/44 03/27/20 17:30 83 25 91/44 (60) 100 03/27/20 17:00 82 24 99/54 (69) 100 03/27/20 17:00 24 Endotracheal Tube 50 03/27/20 17:00 101/53 03/27/20 16:30 82 24 102/57 (72) 100 03/27/20 16:00 97.2 82 24 100/56 (71) 100 03/27/20 16:00 Mechanical Ventilator Mechanical Ventilator 03/27/20 16:00 40 5/11/20 16:00 23 Endotracheal Tube 50 03/27/20 16:00 82/46 03/27/20 15:30 85 24 94/46 (62) 100 03/27/20 15:29 84 03/27/20 15:15 86 24 50 03/27/20 15:00 24 Endotracheal Tube 50 03/27/20 15:00 127/63 03/27/20 15:00 87 24 91/45 (60) 92 03/27/20 14:30 99.3 86 24 97/51 (66) 92 03/27/20 14:01 102/50 03/27/20 14:00 24 Endotracheal Tube 35 03/27/20 14:00 102/50 03/27/20 14:00 85 24 104/55 (71) 93 03/27/20 13:30 83 24 107/62 (77) 95 03/27/20 13:00 24 Endotracheal Tube 35 03/27/20 13:00 105/60 03/27/20 13:00 83 24 105/60 (75) 96 03/27/20 12:30 84 24 117/68 (84) 97 03/27/20 12:00 40 03/27/20 12:00 24 Endotracheal Tube 35 03/27/20 12:00 104/64 03/27/20 12:00 98.2 85 24 109/64 (79) 96 03/27/20 12:00 Mechanical Ventilator Mechanical Ventilator 03/27/20 11:35 86 03/27/20 11:30 87 24 97/48 (64) 94 03/27/20 11:00 24 Endotracheal Tube 35 03/27/20 11:00 92/49 03/27/20 11:00 88 24 92/49 (63) 94 03/27/20 10:52 87 24 40 03/27/20 10:30 87 24 101/56 (71) 94 03/27/20 10:00 24 Endotracheal Tube 35 03/27/20 10:00 86 24 106/64 (78) 95 03/27/20 09:45 85 24 110/66 (81) 96 03/27/20 09:34 126/69 03/27/20 09:30 85 24 126/69 (88) 98 03/27/20 09:15 84 23 90/50 (63) 95 03/27/20 09:00 85 24 115/71 (86) 97 03/27/20 09:00 24 Endotracheal Tube 35 03/27/20 09:00 115/71 03/27/20 08:30 86 24 126/70 (88) 98 03/27/20 08:09 86 24 40 03/27/20 08:00 98.9 87 24 114/64 (81) 97 03/27/20 08:00 Mechanical Ventilator Mechanical Ventilator 03/27/20 08:00 24 Endotracheal Tube 35 03/27/20 08:00 116/65 03/27/20 08:00 40 03/27/20 07:13 91 03/27/20 07:00 24 Mechanical Ventilator 35 03/27/20 07:00 95/52 03/27/20 07:00 91 24 95/52 (66) 93 03/27/20 06:45 93/53 03/27/20 06:30 90/50 03/27/20 06:15 94/56 03/27/20 06:00 24 Mechanical Ventilator 35 03/27/20 06:00 104/60 03/27/20 06:00 88 24 104/60 (75) 94 03/27/20 05:45 104/60 03/27/20 05:30 105/66 03/27/20 05:15 109/68 03/27/20 05:00 88 24 116/70 (85) 98 03/27/20 05:00 24 Mechanical Ventilator 35 03/27/20 05:00 116/70 03/27/20 04:45 119/69 03/27/20 04:30 105/63 03/27/20 04:15 92/48 03/27/20 04:00 25 Mechanical Ventilator 40 03/27/20 04:00 98/57 03/27/20 04:00 87 03/27/20 04:00 Mechanical Ventilator Mechanical Ventilator 03/27/20 04:00 40 03/27/20 04:00 99.0 87 25 98/57 (71) 97 03/27/20 03:36 87 23 40 03/27/20 03:00 24 Mechanical Ventilator 40 03/27/20 03:00 103/62 03/27/20 03:00 88 24 103/62 (76) 95 03/27/20 02:00 87 24 119/74 (89) 97 03/27/20 02:00 24 Mechanical Ventilator 40 03/27/20 02:00 107/63 03/27/20 01:00 88 24 116/73 (87) 97 03/27/20 01:00 24 Mechanical Ventilator 40 03/27/20 01:00 116/73 03/27/20 00:00 99.8 92 24 113/66 (82) 94 03/27/20 00:00 Mechanical Ventilator Mechanical Ventilator 03/27/20 00:00 92 03/27/20 00:00 24 Mechanical Ventilator 40 03/27/20 00:00 113/66 03/26/20 23:15 88 23 40 03/26/20 23:00 24 Mechanical Ventilator 40 03/26/20 23:00 118/72 03/26/20 23:00 118/72 03/26/20 23:00 89 24 118/72 (87) 95 03/26/20 22:30 87 24 124/73 (90) 96 03/26/20 22:00 89 24 104/60 (75) 95 03/26/20 22:00 24 Mechanical Ventilator 40 03/26/20 22:00 125/80 Intake and Output 03/26/20 03/27/20 19:00 07:00 Intake Total 1855.969 ml 1285.91001 ml Output Total 3500 ml 1600 ml Balance -1644.031 ml -314.43278 ml Free Water 800 ml 300 ml IV Total 635.969 ml 565.69690 ml Tube Feeding 420 ml 420 ml Output Urine Total 3500 ml 1600 ml # Bowel Movements 50 Laboratory Tests 03/27/20 04:46: White Blood Count 18.0H, Red Blood Count 2.95L, Hemoglobin 10.3L, Hematocrit 32.4L, Mean Corpuscular Volume 110H, Mean Corpuscular Hemoglobin 34.8H, Mean Corpuscular Hemoglobin Concent 31.7L, Red Cell Distribution Width 22.7H, Platelet Count 154, Mean Platelet Volume 6.9, Neutrophils (%) (Auto) , Lymphocytes (%) (Auto) , Monocytes (%) (Auto) , Eosinophils (%) (Auto) , Basophils (%) (Auto) , Differential Total Cells Counted 100, Neutrophils % ( Manual) 83H, Lymphocytes % (Manual) 8L, Monocytes % (Manual) 9, Eosinophils % ( Manual) 0, Basophils % (Manual) 0, Band Neutrophils 0, Nucleated Red Blood Cells 3, Platelet Estimate Adequate, Platelet Morphology Normal, Hypochromasia 1 +, Anisocytosis 3+, Macrocytosis 2+, Sodium Level 171*H, Potassium Level 3.6, Chloride Level 122H, Carbon Dioxide Level > 45*H, Blood Urea Nitrogen 29H, Creatinine 0.8, Estimat Glomerular Filtration Rate > 60, Glucose Level 304H, Uric Acid 5.7, Calcium Level 9.5, Phosphorus Level 3.7, Magnesium Level 3.0H, Total Bilirubin 2.3H, Direct Bilirubin 1.6H, Aspartate Amino Transf (AST/SGOT) 261H, Alanine Aminotransferase (ALT/SGPT) 210H, Alkaline Phosphatase 200H, Ammonia 65H, C-Reactive Protein, Quantitative 2.6H, Pro-B-Type Natriuretic Peptide 4916H, Total Protein 7.4, Albumin 2.4L, Globulin 5.0, Albumin/Globulin Ratio 0.5L, Thyroid Stimulating Hormone (TSH) 3.769H 03/27/20 08:05: Arterial Blood pH 7.402, Arterial Blood Partial Pressure CO2 75.4*H, Arterial Blood Partial Pressure O2 72.1L, Arterial Blood HCO3 45.9*H, Arterial Blood Oxygen Saturation 92.1L, Arterial Blood Base Excess 18.0*H, Joaquin Test Positive 03/27/20 17:12: Arterial Blood pH 7.380, Arterial Blood Partial Pressure CO2 77.8*H, Arterial Blood Partial Pressure O2 101.9H, Arterial Blood HCO3 45.0*H, Arterial Blood Oxygen Saturation 96.4, Arterial Blood Base Excess 17.0*H, Joaquin Test Positive Height (Feet): 5 Height (Inches): 1.00 Weight (Pounds): 229 Celso Moreno MD March 27, 2020 21:40
[2020-03-27] MEDS: fentaNYL Citrate 1000 MCG in NS 100ml IV SCH (22:56)
--- NOTE | 2020-03-27 23:34 | Pulmonolgy Critical Care Note ---
Critical Care - Asmt/Plan Assessment/Plan: Pulmonary CCM Progress Note HPI Patient is a 59 year old woman with significant obesity, admitted with bilateral lower extremity cellulitis, had complained of increased swelling and redness to both of her feet and legs Had elevated BNP on admission, persistent edema since admission, worsening hypoxia, LE DVT (right) negative for DVT. Patient had previous hospitalizations for cellulitis, PMH Hypothyroidism, Obesity, Cirrhosis, Anemia, Anxiety, Cellulitis COVID 19 positive, Pneumonia VQ no significant perfusion abnormality, prev LE dupplex negative High D Dimer level, on Lovenox treatment dose Being diuresed, slightly inproving infiltrates on CXR, on ACVC, did not tolerating Proning Some improvement in PaO2/FIO2, VC settings adjusted, P 10, FIO2 50%, has increased PaCO2 Now Hypernatremic - receiving free water, renal following Hypothyroidism Awaiting Remdasovir, [facility] - Remdesavir requested for when available, [facility] - not available as yet Received IL6 inhibitor inititial dose (4mg/Kg - all that was available), subsequent dose pending, d/w Pharmacy, on steroids - being weaned 30 mg bid On therapeutic dose Lovenox - incr D dimer Seen earlier Allergies: No Known Allergies Past Medical History: Obesity, Cirrhosis, Anemia, Anxiety, Cellulitis, Hypothyroidism All Other Systems: negative except mentioned in HPI Physical Exam Vital Signs Noted General Appearance: Obese, Sedated,intubated Head: normocephalic, atraumatic Eyes: bilateral eye PERRL, bilateral eye EOMI ENT: EOM grossly intact, moist MM, no LN Respiratory: Bilateral crackles, bilateral rhonchi Cardiovascular: regular rate, rhythm, HS1, HS2 RRR Gastrointestinal: Obese, soft non tender, ND Musculoskeletal: Mild to moderate edema and erythema bilateral lower extremity , patient also has crusting on both feet, Neurologic: sedated, no focalsigns Impression: Covid Pneumonia, s/p IL6 inhibitor, sp Hydroxychloroquine, Ivermectin Improving infiltrates and hypoxia, elevated PCO2 Increased WCC - possible secondary to steroids Bilateral Lower Extremity Cellulitis Elevated NPA, severe bilateral edema - improving Cirrhosis, elevated transaminases/ammonia Splenomegaly Anemia Anxiety Hyponatremia Hypothyroidism Plan IV Antibiotics per ID On trial of steroids - currently 30 mg bid, s/p IL6 inhibitor Diurese as tolerated, note persistently elevated BNP Surgery following for wounds Hematology following for anemia, observing for Neutropenia/thrombocytopenia Diuresed previously Renal following for hypernatremia Endocrine following for Hypothyroidism, on ISS Monitor labs Bronchodilators PPX - Lovenox - therapeutic dose AC VC Proning PRN Supplement electrolytes PRN Albuterol PRN 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 Previously d/w Patients daughter Tri - discussed grave prognosis, suggested DNAR - will consider [facility] - Remdesavir ordered, awaiting supply, awaiting next dose on IL6 inhibitor once supply available Labs Noted Chest X-Ray: Cardiomegaly, left lower lobe atelectasis versus effusion, worsening infiltrates/congestion Subjective ROS Limited/Unobtainable: No Constitutional: Reports: no symptoms Gastrointestinal/Abdominal: Reports: no symptoms Musculoskeletal: Reports: other - SOB Allergies: Coded Allergies: No Known Allergies (Unverified , 02/29/20) ICU time 50 minutes Critical Care - Objective Last 24 Hour Vital Signs Date Time Temp Pulse Resp B/P (MAP) Pulse Ox O2 Delivery O2 Flow Rate FiO2 03/27/20 22:56 24 Mechanical Ventilator 50 03/27/20 22:00 87 24 94/46 (62) 100 03/27/20 21:00 83 24 104/54 (71) 100 03/27/20 21:00 24 Mechanical Ventilator 50 03/27/20 21:00 100/51 03/27/20 20:00 82 03/27/20 20:00 Mechanical Ventilator Mechanical Ventilator 03/27/20 20:00 50 03/27/20 20:00 97.7 82 24 113/60 (77) 100 03/27/20 19:54 82 24 50 03/27/20 19:45 82 24 112/58 (76) 100 03/27/20 19:30 83 24 107/55 (72) 100 03/27/20 19:15 84 24 105/54 (71) 100 03/27/20 19:00 24 Endotracheal Tube 50 03/27/20 19:00 89/47 03/27/20 19:00 86 24 89/47 (61) 99 03/27/20 18:30 85 24 88/45 (59) 99 03/27/20 18:07 91/50 03/27/20 18:00 84 24 91/50 (64) 98 03/27/20 18:00 24 Endotracheal Tube 50 03/27/20 18:00 86/44 03/27/20 17:30 83 25 91/44 (60) 100 03/27/20 17:00 82 24 99/54 (69) 100 03/27/20 17:00 24 Endotracheal Tube 50 03/27/20 17:00 101/53 03/27/20 16:30 82 24 102/57 (72) 100 03/27/20 16:00 97.2 82 24 100/56 (71) 100 03/27/20 16:00 Mechanical Ventilator Mechanical Ventilator 03/27/20 16:00 40 03/27/20 16:00 23 Endotracheal Tube 50 03/27/20 16:00 82/46 03/27/20 15:30 85 24 94/46 (62) 100 03/27/20 15:29 84 03/27/20 15:15 86 24 50 03/27/20 15:00 24 Endotracheal Tube 50 03/27/20 15:00 127/63 03/27/20 15:00 87 24 91/45 (60) 92 03/27/20 14:30 99.3 86 24 97/51 (66) 92 03/27/20 14:01 102/50 03/27/20 14:00 24 Endotracheal Tube 35 03/27/20 14:00 102/50 03/27/20 14:00 85 24 104/55 (71) 93 03/27/20 13:30 83 24 107/62 (77) 95 03/27/20 13:00 24 Endotracheal Tube 35 03/27/20 13:00 105/60 03/27/20 13:00 83 24 105/60 (75) 96 03/27/20 12:30 84 24 117/68 (84) 97 03/27/20 12:00 40 03/27/20 12:00 24 Endotracheal Tube 35 03/27/20 12:00 104/64 03/27/20 12:00 98.2 85 24 109/64 (79) 96 03/27/20 12:00 Mechanical Ventilator Mechanical Ventilator 03/27/20 11:35 86 03/27/20 11:30 87 24 97/48 (64) 94 03/27/20 11:00 24 Endotracheal Tube 35 03/27/20 11:00 92/49 03/27/20 11:00 88 24 92/49 (63) 94 03/27/20 10:52 87 24 40 03/27/20 10:30 87 24 101/56 (71) 94 03/27/20 10:00 24 Endotracheal Tube 35 03/27/20 10:00 86 24 106/64 (78) 95 03/27/20 09:45 85 24 110/66 (81) 96 03/27/20 09:34 126/69 03/27/20 09:30 85 24 126/69 (88) 98 03/27/20 09:15 84 23 90/50 (63) 95 03/27/20 09:00 85 24 115/71 (86) 97 03/27/20 09:00 24 Endotracheal Tube 35 03/27/20 09:00 115/71 03/27/20 08:30 86 24 126/70 (88) 98 03/27/20 08:09 86 24 40 03/27/20 08:00 98.9 87 24 114/64 (81) 97 03/27/20 08:00 Mechanical Ventilator Mechanical Ventilator 03/27/20 08:00 24 Endotracheal Tube 35 03/27/20 08:00 116/65 03/27/20 08:00 40 03/27/20 07:13 91 03/27/20 07:00 24 Mechanical Ventilator 35 03/27/20 07:00 95/52 03/27/20 07:00 91 24 95/52 (66) 93 03/27/20 06:45 93/53 03/27/20 06:30 90/50 03/27/20 06:15 94/56 03/27/20 06:00 24 Mechanical Ventilator 35 03/27/20 06:00 104/60 03/27/20 06:00 88 24 104/60 (75) 94 03/27/20 05:45 104/60 03/27/20 05:30 105/66 03/27/20 05:15 109/68 03/27/20 05:00 88 24 116/70 (85) 98 03/27/20 05:00 24 Mechanical Ventilator 35 03/27/20 05:00 116/70 03/27/20 04:45 119/69 03/27/20 04:30 105/63 03/27/20 04:15 92/48 03/27/20 04:00 25 Mechanical Ventilator 40 03/27/20 04:00 98/57 03/27/20 04:00 87 03/27/20 04:00 Mechanical Ventilator Mechanical Ventilator 03/27/20 04:00 40 03/27/20 04:00 99.0 87 25 98/57 (71) 97 03/27/20 03:36 87 23 40 03/27/20 03:00 24 Mechanical Ventilator 40 03/27/20 03:00 103/62 03/27/20 03:00 88 24 103/62 (76) 95 03/27/20 02:00 87 24 119/74 (89) 97 03/27/20 02:00 24 Mechanical Ventilator 40 03/27/20 02:00 107/63 03/27/20 01:00 88 24 116/73 (87) 97 03/27/20 01:00 24 Mechanical Ventilator 40 03/27/20 01:00 116/73 03/27/20 00:00 99.8 92 24 113/66 (82) 94 03/27/20 00:00 Mechanical Ventilator Mechanical Ventilator 03/27/20 00:00 92 03/27/20 00:00 24 Mechanical Ventilator 40 03/27/20 00:00 113/66 Accucheck: 362 Critical Care - Subjective ROS Limited/Unobtainable: No Condition: critical IV Access: PICC FI02: 50 Vent Support Breath Rate: 24 Vent Support Mode: AC Vent Tidal Volume: 400 Sputum Amount: Small PEEP: 10.0 PIP: 26 Tube Feeding Amount: 35 I&O: Intake and Output 03/26/20 03/27/20 19:00 07:00 Intake Total 1855.969 ml 1285.44595 ml Output Total 3500 ml 1600 ml Balance -1644.031 ml -314.22258 ml Free Water 800 ml 300 ml IV Total 635.969 ml 565.51519 ml Tube Feeding 420 ml 420 ml Output Urine Total 3500 ml 1600 ml # Bowel Movements 50 ET-Tube: 7.5 ET Position: 21 Doron Carrillo MD March 27, 2020 23:34
[2020-03-28] VITALS (49 sets, daily range): BP systolic 66–166; BP diastolic 34–76
[2020-03-28] MEDS: Metoclopramide 10mg/2ml Inj IVP SCH ×2 (00:33→05:30)
[2020-03-28] MEDS: NovoLOG Insulin Flexpen SUBQ SCH ×10 (00:50→21:30)
[2020-03-28] MEDS: DOPamine 400mg/250ml 250 ML IV SCH ×7 (02:44→21:30)
--- NOTE | 2020-03-28 06:35 | General Progress Note ---
Assessment/Plan Problem List: (1) Hypothyroid ICD Codes: E03.9 - Hypothyroidism, unspecified SNOMED: 90392121 (2) COVID-19 ICD Codes: U07.1 - COVID-19 SNOMED: 908452692 (3) Respiratory failure with hypoxia ICD Codes: J96.91 - Respiratory failure, unspecified with hypoxia SNOMED: [id number] Qualifiers: Qualified Codes: J96.01 - Acute respiratory failure with hypoxia (4) Cellulitis ICD Codes: L03.90 - Cellulitis, unspecified SNOMED: 875367223 Qualifiers: Qualified Codes: L03.119 - Cellulitis of unspecified part of limb (5) Hyperglycemia ICD Codes: R73.9 - Hyperglycemia, unspecified SNOMED: [id number] Status: progressing, unchanged Assessment/Plan: continue Levemir 40 units bid add Novolog 10 units every 4 hours in addition to sliding scale continue Novolog sliding scale every 4 hours high dose continue Levothyroxine 50 mcg IV daily Subjective ROS Limited/Unobtainable: Yes Allergies: Coded Allergies: No Known Allergies (Unverified , 02/29/20) Subjective events noted - interval notes reviewed intubated in ICU glucose values very high after dextrose started Item Value Date Time Bedside Blood Glucose 382 mg/dl H 03/28/20 0530 Bedside Blood Glucose 384 mg/dl H 03/28/20 0050 Bedside Blood Glucose 362 mg/dl H 03/27/20 2110 Bedside Blood Glucose 363 mg/dl H 03/27/20 1700 Bedside Blood Glucose 235 mg/dl H 03/27/20 1244 Objective Last 24 Hour Vital Signs Date Time Temp Pulse Resp B/P (MAP) Pulse Ox O2 Delivery O2 Flow Rate FiO2 03/28/20 06:00 24 Mechanical Ventilator 50 03/28/20 06:00 120/68 03/28/20 06:00 88 24 120/68 (85) 100 03/28/20 05:36 115/57 03/28/20 05:00 89 24 115/57 (76) 97 03/28/20 05:00 24 Mechanical Ventilator 50 03/28/20 05:00 115/57 03/28/20 04:00 86 03/28/20 04:00 98.0 86 24 125/53 (77) 98 03/28/20 04:00 24 Mechanical Ventilator 50 03/28/20 04:00 125/53 03/28/20 04:00 Mechanical Ventilator Mechanical Ventilator 03/28/20 04:00 50 03/28/20 03:32 86 24 50 03/28/20 03:00 24 Mechanical Ventilator 50 03/28/20 03:00 153/68 03/28/20 03:00 85 24 143/69 (93) 100 03/28/20 02:44 110/55 03/28/20 02:00 87 24 110/55 (73) 100 03/28/20 02:00 24 Mechanical Ventilator 50 03/28/20 02:00 110/55 03/28/20 01:00 86 24 115/60 (78) 100 03/28/20 01:00 24 Mechanical Ventilator 50 03/28/20 01:00 115/60 03/28/20 00:00 98.8 84 24 130/66 (87) 100 03/28/20 00:00 84 03/28/20 00:00 24 Mechanical Ventilator 50 03/28/20 00:00 24 Mechanical Ventilator 50 03/28/20 00:00 122/84 03/28/20 00:00 122/84 03/28/20 00:00 50 03/28/20 00:00 Mechanical Ventilator Mechanical Ventilator 03/27/20 23:51 84 24 50 03/27/20 23:00 85 24 117/62 (80) 100 03/27/20 23:00 24 Mechanical Ventilator 50 03/27/20 23:00 126/65 03/27/20 22:56 24 Mechanical Ventilator 50 03/27/20 22:30 110/56 03/27/20 22:15 102/50 03/27/20 22:00 24 Mechanical Ventilator 50 03/27/20 22:00 94/44 03/27/20 22:00 87 24 94/46 (62) 100 03/27/20 21:30 24 Mechanical Ventilator 50 03/27/20 21:30 94/47 03/27/20 21:00 83 24 104/54 (71) 100 03/27/20 21:00 24 Mechanical Ventilator 50 03/27/20 21:00 100/51 03/27/20 20:00 82 03/27/20 20:00 Mechanical Ventilator Mechanical Ventilator 03/27/20 20:00 50 03/27/20 20:00 99/48 03/27/20 20:00 97.7 82 24 113/60 (77) 100 03/27/20 19:54 82 24 50 03/27/20 19:45 82 24 112/58 (76) 100 03/27/20 19:30 83 24 107/55 (72) 100 03/27/20 19:15 84 24 105/54 (71) 100 03/27/20 19:00 24 Endotracheal Tube 50 03/27/20 19:00 89/47 03/27/20 19:00 86 24 89/47 (61) 99 03/27/20 18:30 85 24 88/45 (59) 99 03/27/20 18:07 91/50 03/27/20 18:00 84 24 91/50 (64) 98 03/27/20 18:00 24 Endotracheal Tube 50 03/27/20 18:00 86/44 03/27/20 17:30 83 25 91/44 (60) 100 03/27/20 17:00 82 24 99/54 (69) 100 03/27/20 17:00 24 Endotracheal Tube 50 03/27/20 17:00 101/53 03/27/20 16:30 82 24 102/57 (72) 100 03/27/20 16:00 97.2 82 24 100/56 (71) 100 03/27/20 16:00 Mechanical Ventilator Mechanical Ventilator 03/27/20 16:00 40 03/27/20 16:00 23 Endotracheal Tube 50 03/27/20 16:00 82/46 03/27/20 15:30 85 24 94/46 (62) 100 03/27/20 15:29 84 03/27/20 15:15 86 24 50 03/27/20 15:00 24 Endotracheal Tube 50 03/27/20 15:00 127/63 03/27/20 15:00 87 24 91/45 (60) 92 03/27/20 14:30 99.3 86 24 97/51 (66) 92 03/27/20 14:01 102/50 03/27/20 14:00 24 Endotracheal Tube 35 03/27/20 14:00 102/50 03/27/20 14:00 85 24 104/55 (71) 93 03/27/20 13:30 83 24 107/62 (77) 95 03/27/20 13:00 24 Endotracheal Tube 35 03/27/20 13:00 105/60 03/27/20 13:00 83 24 105/60 (75) 96 03/27/20 12:30 84 24 117/68 (84) 97 03/27/20 12:00 40 03/27/20 12:00 24 Endotracheal Tube 35 03/27/20 12:00 104/64 03/27/20 12:00 98.2 85 24 109/64 (79) 96 03/27/20 12:00 Mechanical Ventilator Mechanical Ventilator 03/27/20 11:35 86 03/27/20 11:30 87 24 97/48 (64) 94 03/27/20 11:00 24 Endotracheal Tube 35 03/27/20 11:00 92/49 03/27/20 11:00 88 24 92/49 (63) 94 03/27/20 10:52 87 24 40 03/27/20 10:30 87 24 101/56 (71) 94 03/27/20 10:00 24 Endotracheal Tube 35 03/27/20 10:00 86 24 106/64 (78) 95 03/27/20 09:45 85 24 110/66 (81) 96 03/27/20 09:34 126/69 03/27/20 09:30 85 24 126/69 (88) 98 03/27/20 09:15 84 23 90/50 (63) 95 03/27/20 09:00 85 24 115/71 (86) 97 03/27/20 09:00 24 Endotracheal Tube 35 03/27/20 09:00 115/71 03/27/20 08:30 86 24 126/70 (88) 98 03/27/20 08:09 86 24 40 03/27/20 08:00 98.9 87 24 114/64 (81) 97 03/27/20 08:00 Mechanical Ventilator Mechanical Ventilator 03/27/20 08:00 24 Endotracheal Tube 35 03/27/20 08:00 116/65 03/27/20 08:00 40 03/27/20 07:13 91 03/27/20 07:00 24 Mechanical Ventilator 35 03/27/20 07:00 95/52 03/27/20 07:00 91 24 95/52 (66) 93 03/27/20 06:45 93/53 Intake and Output 03/27/20 03/28/20 19:00 07:00 Intake Total 2215.070 ml 2713.19858 ml Output Total 1875 ml 685 ml Balance 340.070 ml 2028.33227 ml Free Water 200 ml 300 ml IV Total 1595.070 ml 8.43039 ml Tube Feeding 420 ml 385 ml Output Urine Total 1725 ml 685 ml Stool Total 150 ml # Bowel Movements 100 Laboratory Tests 03/27/20 08:05: Arterial Blood pH 7.402, Arterial Blood Partial Pressure CO2 75.4*H, Arterial Blood Partial Pressure O2 72.1L, Arterial Blood HCO3 45.9*H, Arterial Blood Oxygen Saturation 92.1L, Arterial Blood Base Excess 18.0*H, Joaquin Test Positive 03/27/20 17:12: Arterial Blood pH 7.380, Arterial Blood Partial Pressure CO2 77.8*H, Arterial Blood Partial Pressure O2 101.9H, Arterial Blood HCO3 45.0*H, Arterial Blood Oxygen Saturation 96.4, Arterial Blood Base Excess 17.0*H, Joaquin Test Positive 03/28/20 05:09: White Blood Count [Pending], Red Blood Count [Pending], Hemoglobin [Pending], Hematocrit [Pending], Mean Corpuscular Volume [Pending], Mean Corpuscular Hemoglobin [Pending], Mean Corpuscular Hemoglobin Concent [Pending], Red Cell Distribution Width [Pending], Platelet Count [Pending], Mean Platelet Volume [ Pending], Neutrophils (%) (Auto) [Pending], Lymphocytes (%) (Auto) [Pending], Monocytes (%) (Auto) [Pending], Eosinophils (%) (Auto) [Pending], Basophils (%) (Auto) [Pending], Sodium Level [Pending], Potassium Level [Pending], Chloride Level [Pending], Carbon Dioxide Level [Pending], Blood Urea Nitrogen [Pending], Creatinine [Pending], Estimat Glomerular Filtration Rate [Pending], Glucose Level [Pending], Uric Acid [Pending], Calcium Level [Pending], Phosphorus Level [Pending], Magnesium Level [Pending], Total Bilirubin [Pending], Gamma Glutamyl Transpeptidase [Pending], Aspartate Amino Transf (AST/SGOT) [Pending], Alanine Aminotransferase (ALT/SGPT) [Pending], Alkaline Phosphatase [Pending], Ammonia [ Pending], Total Creatine Kinase [Pending], C-Reactive Protein, Quantitative [ Pending], Pro-B-Type Natriuretic Peptide [Pending], Total Protein [Pending], Albumin [Pending], Globulin [Pending] Height (Feet): 5 Height (Inches): 1.00 Weight (Pounds): 227 General Appearance: other - intubated EENT: other - ETT Neck: normal alignment Cardiovascular: tachycardia Respiratory/Chest: decreased breath sounds Abdomen: normal bowel sounds Edema: 1+ Arm (L), 1+ Arm (R), 1+ Leg (L), 1+ Leg (R), 1+ Pedal (L), 1+ Pedal ( R), 1+ Generalized Objective Current Medications Medications (Trade) Dose Ordered Sig/Dolores Route PRN Reason Start Time Stop Time Status Last Admin Dose Admin Acetaminophen (Tylenol) 650 mg Q4H PRN ORAL Mild Pain (Pain Scale 1-3) 03/13/20 14:53 04/12/20 14:52 03/25/20 12:35 Acetaminophen (Tylenol) 650 mg Q4H PRN ORAL Temp >100 03/13/20 14:53 04/12/20 14:52 03/25/20 17:16 Chlorhexidine Gluconate (Lucretia-Hex 2%) 1 applic DAILY@2000 TOPIC 03/13/20 20:00 06/11/20 19:59 03/27/20 20:46 Dextrose 1,000 ml @ 100 mls/hr Q10H IV 03/27/20 08:00 04/26/20 07:59 03/28/20 02:44 Dextrose (Dextrose 50%) 25 ml Q30M PRN IV Hypoglycemia 03/26/20 08:45 06/24/20 08:44 Dextrose (Dextrose 50%) 50 ml Q30M PRN IV Hypoglycemia 03/26/20 08:45 06/24/20 08:44 Dopamine HCl/ Dextrose 250 ml @ 0 mls/hr Q24H IV 03/16/20 19:30 06/14/20 19:29 03/28/20 05:36 Enoxaparin Sodium (Lovenox) 100 mg EVERY 12 HOURS SUBQ 03/23/20 21:00 06/21/20 20:59 03/27/20 20:47 Fentanyl Citrate 1000 mcg/Sodium Chloride 100 ml @ 0 mls/hr Q24H IV 03/27/20 22:30 04/03/20 22:29 03/27/20 22:56 Hydralazine HCl (Apresoline) 10 mg Q6H PRN IV For High Blood Pressure 03/24/20 16:45 06/22/20 16:44 Insulin Aspart (NovoLOG) EVERY 4 HOURS SUBQ 03/26/20 09:00 06/24/20 08:59 03/28/20 05:30 Insulin Detemir (Levemir) 40 units Q12HR SUBQ 03/27/20 21:00 06/20/20 18:59 03/27/20 21:09 Lactulose (Cephulac) 15 gm TID ORAL 03/24/20 13:00 04/23/20 12:59 03/27/20 17:44 Levofloxacin (Levaquin) 750 mg DAILY NG 03/28/20 09:00 04/04/20 08:59 Levothyroxine Sodium (Synthroid) 50 mcg DAILY IV 03/21/20 09:00 04/17/20 11:59 03/27/20 09:01 Lorazepam (Ativan 2mg/ml 1ml) 1 mg Q2H PRN IV For Anxiety 03/25/20 16:30 04/01/20 16:29 03/25/20 23:39 Methylprednisolone Sodium Succinate (Solu-MEDROL) 20 mg DAILY IVP 03/28/20 09:00 03/30/20 08:59 Metoclopramide HCl (Reglan) 5 mg Q6HR IVP 03/24/20 12:00 04/23/20 11:59 03/28/20 05:30 Midodrine (Pro-Amatine) 10 mg THREE TIMES A DAY NG 03/27/20 09:00 06/20/20 12:29 03/27/20 17:44 Mirtazapine (Remeron) 7.5 mg BEDTIME PRN ORAL SLEEP 03/13/20 14:55 06/11/20 14:54 Non-Formulary Medication (Non-Formulary Med) 1 ea DAILY IV 03/18/20 09:00 04/17/20 08:59 UNV Norepinephrine Bitartrate 4 mg/ Dextrose 250 ml @ 0 mls/hr Q24H PRN IV For hypotension 03/25/20 16:30 04/24/20 16:29 Vasopressin 100 units/Sodium Chloride 100 ml @ 0 mls/hr Q24H PRN IV For hypotension 03/16/20 11:00 04/15/20 10:59 03/19/20 18:03 Johan Christopher MD March 28, 2020 06:34
[2020-03-28 07:19] LABS: HEMATOCRIT 30.6 % (37.0-47.0); HEMOGLOBIN 9.8 G/DL (12.0-16.0); MEAN CORPUSCULAR VOLUME 112 FL (80-99); PLATELET COUNT 140 K/UL (150-450); RED BLOOD COUNT 2.74 M/UL (4.20-5.40); RED CELL DISTRIBUTION WIDTH 22.4 % (11.6-14.8)
[2020-03-28 07:20] LABS: ALANINE AMINOTRANSFERASE 296 U/L (12-78); ALBUMIN 2.3 G/DL (3.4-5.0); ALBUMIN/GLOBULIN RATIO 0.5 (1.0-2.7); ALKALINE PHOSPHATASE 279 U/L (46-116); ASPARTATE AMINO TRANSFERASE 354 U/L (15-37); BILIRUBIN,TOTAL 1.8 MG/DL (0.2-1.0); BLOOD UREA NITROGEN 38 mg/dL (7-18); CALCIUM 9.4 MG/DL (8.5-10.1); CHLORIDE 117 MMOL/L (98-107); CREATININE 0.9 MG/DL (0.55-1.30); PHOSPHORUS 4.1 MG/DL (2.5-4.9); POTASSIUM 4.3 MMOL/L (3.5-5.1); SODIUM 160 MMOL/L (136-145)
--- NOTE | 2020-03-28 07:27 | General Progress Note ---
Assessment/Plan Status: progressing, unchanged Assessment/Plan: macrocytic anemia elevated LFTS cirrhosis cellulitis elevated Ammonia levels respiratory distress>>> now failure COVID positive pna NGTF>> will increase to 50 cc abd us>> reviewed Xifaxan fu stool ob>>>neg GI procedures if needed abx per id hepatitis panel>>>>>positive for hep C>>> needs out patient fu poor prognosis will fu Subjective ROS Limited/Unobtainable: No Allergies: Coded Allergies: No Known Allergies (Unverified , 02/29/20) Objective Last 24 Hour Vital Signs Date Time Temp Pulse Resp B/P (MAP) Pulse Ox O2 Delivery O2 Flow Rate FiO2 03/28/20 07:00 24 Mechanical Ventilator 50 03/28/20 07:00 129/58 03/28/20 07:00 86 24 129/58 (81) 100 03/28/20 06:00 24 Mechanical Ventilator 50 03/28/20 06:00 120/68 03/28/20 06:00 88 24 120/68 (85) 100 03/28/20 05:36 115/57 03/28/20 05:00 89 24 115/57 (76) 97 03/28/20 05:00 24 Mechanical Ventilator 50 03/28/20 05:00 115/57 03/28/20 04:00 86 03/28/20 04:00 98.0 86 24 125/53 (77) 98 03/28/20 04:00 24 Mechanical Ventilator 50 03/28/20 04:00 125/53 03/28/20 04:00 Mechanical Ventilator Mechanical Ventilator 03/28/20 04:00 50 03/28/20 03:32 86 24 50 03/28/20 03:00 24 Mechanical Ventilator 50 03/28/20 03:00 153/68 03/28/20 03:00 85 24 143/69 (93) 100 03/28/20 02:44 110/55 03/28/20 02:00 87 24 110/55 (73) 100 03/28/20 02:00 24 Mechanical Ventilator 50 03/28/20 02:00 110/55 03/28/20 01:00 86 24 115/60 (78) 100 03/28/20 01:00 24 Mechanical Ventilator 50 03/28/20 01:00 115/60 03/28/20 00:00 98.8 84 24 130/66 (87) 100 03/28/20 00:00 84 03/28/20 00:00 24 Mechanical Ventilator 50 03/28/20 00:00 24 Mechanical Ventilator 50 03/28/20 00:00 122/84 03/28/20 00:00 122/84 03/28/20 00:00 50 03/28/20 00:00 Mechanical Ventilator Mechanical Ventilator 03/27/20 23:51 84 24 50 03/27/20 23:00 85 24 117/62 (80) 100 03/27/20 23:00 24 Mechanical Ventilator 50 03/27/20 23:00 126/65 03/27/20 22:56 24 Mechanical Ventilator 50 03/27/20 22:30 110/56 03/27/20 22:15 102/50 03/27/20 22:00 24 Mechanical Ventilator 50 03/27/20 22:00 94/44 03/27/20 22:00 87 24 94/46 (62) 100 03/27/20 21:30 24 Mechanical Ventilator 50 03/27/20 21:30 94/47 03/27/20 21:00 83 24 104/54 (71) 100 03/27/20 21:00 24 Mechanical Ventilator 50 03/27/20 21:00 100/51 03/27/20 20:00 82 03/27/20 20:00 Mechanical Ventilator Mechanical Ventilator 03/27/20 20:00 50 03/27/20 20:00 99/48 03/27/20 20:00 97.7 82 24 113/60 (77) 100 03/27/20 19:54 82 24 50 03/27/20 19:45 82 24 112/58 (76) 100 03/27/20 19:30 83 24 107/55 (72) 100 03/27/20 19:15 84 24 105/54 (71) 100 03/27/20 19:00 24 Endotracheal Tube 50 03/27/20 19:00 89/47 03/27/20 19:00 86 24 89/47 (61) 99 03/27/20 18:30 85 24 88/45 (59) 99 03/27/20 18:07 91/50 03/27/20 18:00 84 24 91/50 (64) 98 03/27/20 18:00 24 Endotracheal Tube 50 03/27/20 18:00 86/44 03/27/20 17:30 83 25 91/44 (60) 100 03/27/20 17:00 82 24 99/54 (69) 100 03/27/20 17:00 24 Endotracheal Tube 50 03/27/20 17:00 101/53 03/27/20 16:30 82 24 102/57 (72) 100 03/27/20 16:00 97.2 82 24 100/56 (71) 100 03/27/20 16:00 Mechanical Ventilator Mechanical Ventilator 03/27/20 16:00 40 03/27/20 16:00 23 Endotracheal Tube 50 03/27/20 16:00 82/46 03/27/20 15:30 85 24 94/46 (62) 100 03/27/20 15:29 84 03/27/20 15:15 86 24 50 03/27/20 15:00 24 Endotracheal Tube 50 03/27/20 15:00 127/63 03/27/20 15:00 87 24 91/45 (60) 92 03/27/20 14:30 99.3 86 24 97/51 (66) 92 03/27/20 14:01 102/50 03/27/20 14:00 24 Endotracheal Tube 35 03/27/20 14:00 102/50 03/27/20 14:00 85 24 104/55 (71) 93 03/27/20 13:30 83 24 107/62 (77) 95 03/27/20 13:00 24 Endotracheal Tube 35 03/27/20 13:00 105/60 03/27/20 13:00 83 24 105/60 (75) 96 03/27/20 12:30 84 24 117/68 (84) 97 03/27/20 12:00 40 03/27/20 12:00 24 Endotracheal Tube 35 03/27/20 12:00 104/64 03/27/20 12:00 98.2 85 24 109/64 (79) 96 03/27/20 12:00 Mechanical Ventilator Mechanical Ventilator 03/27/20 11:35 86 03/27/20 11:30 87 24 97/48 (64) 94 03/27/20 11:00 24 Endotracheal Tube 35 03/27/20 11:00 92/49 03/27/20 11:00 88 24 92/49 (63) 94 5/11/20 10:52 87 24 40 03/27/20 10:30 87 24 101/56 (71) 94 03/27/20 10:00 24 Endotracheal Tube 35 03/27/20 10:00 86 24 106/64 (78) 95 03/27/20 09:45 85 24 110/66 (81) 96 03/27/20 09:34 126/69 03/27/20 09:30 85 24 126/69 (88) 98 03/27/20 09:15 84 23 90/50 (63) 95 03/27/20 09:00 85 24 115/71 (86) 97 03/27/20 09:00 24 Endotracheal Tube 35 03/27/20 09:00 115/71 03/27/20 08:30 86 24 126/70 (88) 98 03/27/20 08:09 86 24 40 03/27/20 08:00 98.9 87 24 114/64 (81) 97 03/27/20 08:00 Mechanical Ventilator Mechanical Ventilator 03/27/20 08:00 24 Endotracheal Tube 35 03/27/20 08:00 116/65 03/27/20 08:00 40 Intake and Output 03/27/20 03/28/20 19:00 07:00 Intake Total 2215.070 ml 2926.38229 ml Output Total 1875 ml 715 ml Balance 340.070 ml 2211.06767 ml Free Water 200 ml 300 ml IV Total 1595.070 ml 2206.39487 ml Tube Feeding 420 ml 420 ml Output Urine Total 1725 ml 715 ml Stool Total 150 ml # Bowel Movements 100 Laboratory Tests 03/27/20 08:05: Arterial Blood pH 7.402, Arterial Blood Partial Pressure CO2 75.4*H, Arterial Blood Partial Pressure O2 72.1L, Arterial Blood HCO3 45.9*H, Arterial Blood Oxygen Saturation 92.1L, Arterial Blood Base Excess 18.0*H, Joaquin Test Positive 03/27/20 17:12: Arterial Blood pH 7.380, Arterial Blood Partial Pressure CO2 77.8*H, Arterial Blood Partial Pressure O2 101.9H, Arterial Blood HCO3 45.0*H, Arterial Blood Oxygen Saturation 96.4, Arterial Blood Base Excess 17.0*H, Joaquin Test Positive 03/28/20 05:09: White Blood Count [Pending], Red Blood Count [Pending], Hemoglobin [Pending], Hematocrit [Pending], Mean Corpuscular Volume [Pending], Mean Corpuscular Hemoglobin [Pending], Mean Corpuscular Hemoglobin Concent [Pending], Red Cell Distribution Width [Pending], Platelet Count [Pending], Mean Platelet Volume [ Pending], Neutrophils (%) (Auto) [Pending], Lymphocytes (%) (Auto) [Pending], Monocytes (%) (Auto) [Pending], Eosinophils (%) (Auto) [Pending], Basophils (%) (Auto) [Pending], Sodium Level [Pending], Potassium Level [Pending], Chloride Level [Pending], Carbon Dioxide Level [Pending], Blood Urea Nitrogen [Pending], Creatinine [Pending], Estimat Glomerular Filtration Rate [Pending], Glucose Level [Pending], Uric Acid [Pending], Calcium Level [Pending], Phosphorus Level [Pending], Magnesium Level [Pending], Total Bilirubin [Pending], Gamma Glutamyl Transpeptidase [Pending], Aspartate Amino Transf (AST/SGOT) [Pending], Alanine Aminotransferase (ALT/SGPT) [Pending], Alkaline Phosphatase [Pending], Ammonia [ Pending], Total Creatine Kinase [Pending], C-Reactive Protein, Quantitative [ Pending], Pro-B-Type Natriuretic Peptide [Pending], Total Protein [Pending], Albumin [Pending], Globulin [Pending] Height (Feet): 5 Height (Inches): 1.00 Weight (Pounds): 227 General Appearance: lethargic EENT: normal ENT inspection Neck: supple Cardiovascular: normal rate Respiratory/Chest: decreased breath sounds Abdomen: normal bowel sounds, non tender, soft Extremities: non-tender Tam Spicer MD March 28, 2020 07:27
[2020-03-28 07:31] LABS: CARBON DIOXIDE 44 MMOL/L (21-32); WHITE BLOOD COUNT 22.5 K/UL (4.8-10.8)
[2020-03-28 08:04] LABS: AMMONIA 75 umol/L (11-32)
[2020-03-28 08:06] LABS: CREATINE KINASE 62 U/L (26-308); GAMMA GLUTAMYL TRANSPEPTIDASE 599 U/L (5-85)
[2020-03-28] MEDS: Midodrine 10mg tab NG SCH ×3 (08:11→17:44)
[2020-03-28] MEDS: Levofloxacin 750mg tab NG SCH (08:12)
[2020-03-28 08:13] LABS: BILIRUBIN,DIRECT 1.1 MG/DL (0.0-0.3)
[2020-03-28] MEDS: Enoxaparin 100mg Inj SUBQ SCH ×2 (08:13→21:30)
[2020-03-28] MEDS: Solu-MEDROL 40mg Inj IVP SCH (08:13)
[2020-03-28] MEDS: Levemir Flexpen SUBQ SCH ×2 (08:56→21:30)
--- NOTE | 2020-03-28 11:11 | Hematology/Onc Progress Note ---
Assessment/Plan Assessment/Plan Assessment and Recs # Pancytopenia -- multiple etiologies could be related to underlying liver disease, medication-induced, infection versus viral syndrome versus underlying bone marrow cause, in this case, has severe liver disease and cirrhosis, HEP C++ , also cellulitis, COVID19++ --> peripheral smear has been ordered and does not show significant abnormalities and none noted --> Medications have been reviewed --> Continue to monitor for improvement, trend cbc --> Hep panel and HIV are both negative --> US abd ordered to r/o cirrhosis and hepatosplenomegaly ->CIRRHOSIS IS NOTED , LARGE SPLEEN --> reverse isolation if ANC is <2000 --> Give neupogen if ANC <1000 --> Transfuse if hgb <7, with 1 unit prbc --> anemia panel ordered as well-->CW acd --> hgb trend 7-->7.1-->8.4-->8.2 -->8.7-->9.9-->9.2-->9.5-->9.1 --> plt 145k-->152-->162k-->149k-->121k-->171k-->149-->163 --> wbc 3.4-->3.5->3.9->4.4-->11-->10.8 -->15->23 --> abx: sameer/rifaximin-->levaquin /vanc # Leukocytosis with Cellulitis of the lower extremities --> continue abx as needed as per id --> Started on IV antibiotics-->azithro/cefepime-->levaquin --> as per surg recs, wound care --> on steriods at this time, likely contributor # Ftt --> remains on mirtazapine # Elevated LFTS --> as per gi --> due to cirrhosis # Respiratory failure --> s/p intubation 03/16 --> prone positioning as needed by pulm # Dvt ppx lovenox sq The timing of this note does not necessarily reflect the time of the patient was seen. Greatly appreciate consultation. Subjective Allergies: Coded Allergies: No Known Allergies (Unverified , 02/29/20) All Systems: reviewed and negative except above Subjective 03/02 no events, no bleeding, hgb 7.1, no hemolysis 03/03 s/p blood, hgb improved to 8.4, stool ob negtive, on abx 03/05 asleep, no acute distress, hgb 8.2 03/06 remains comfortable, on abx, plt remains low 03/07 is on nonrebreather, no night sweats, labs are noted 03/08 labs reviewed, being diuresed, seen by cards, psych, labs noted 03/09 lasix adjusted, wbc remains low at 3.9, reviewed meds, smear 03/10 no night sweats, no bleeding, labs noted, smear noted 03/12 labs noted, none completed, have reordered, cellulitis better 03/13 is continuing with chest pain, cards aware, no further studies until covid neg 03/14 labs noted, no bleeding, diuresis as needed, hgb stable 03/15 alseep is cooperative, no bleeding, meds noted 03/16 no bleeding or chills, hgb 10.8, no night sweats, no major events 03/17 now intubated, no bleeding, labs noted, dw rn 03/19 remains intubated, no bleeding, labs noted, on pressors 03/20 prone posiition, seen by gi and renal, nob leeding, hgb 10.1 03/21 sedated, remains agitated, pulling on 2p restraints, no bleeding 03/22 icu, h/h stable, finished plaq/zithro, no acute distress 03/23 in icu, remains restless no bleeding, labs noted, no bleeding 03/24 in icu, poor prognosis, no night sweats, no fc 03/26 on vent, unresponsive, no bleeding, wbc high is on abx and steriods 03/27 remains on vent, ngt, no bleeding, already on abx on steriods 03/28 labs noted, no bleeding, wbc 23k, hgb 9, still with ongoing leukocytosis, ngt feeds Objective Objective Current Medications Medications (Trade) Dose Ordered Sig/Dolores Route PRN Reason Start Time Stop Time Status Last Admin Dose Admin Acetaminophen (Tylenol) 650 mg Q4H PRN ORAL Mild Pain (Pain Scale 1-3) 03/13/20 14:53 04/12/20 14:52 03/25/20 12:35 Acetaminophen (Tylenol) 650 mg Q4H PRN ORAL Temp >100 03/13/20 14:53 04/12/20 14:52 03/25/20 17:16 Chlorhexidine Gluconate (Lucretia-Hex 2%) 1 applic DAILY@2000 TOPIC 03/13/20 20:00 06/11/20 19:59 03/27/20 20:46 Dextrose 1,000 ml @ 100 mls/hr Q10H IV 03/27/20 08:00 04/26/20 07:59 03/28/20 02:44 Dextrose (Dextrose 50%) 25 ml Q30M PRN IV Hypoglycemia 03/28/20 06:45 06/26/20 06:44 Dextrose (Dextrose 50%) 50 ml Q30M PRN IV Hypoglycemia 03/28/20 06:45 06/26/20 06:44 Dopamine HCl/ Dextrose 250 ml @ 0 mls/hr Q24H IV 03/16/20 19:30 06/14/20 19:29 03/28/20 08:59 Enoxaparin Sodium (Lovenox) 100 mg EVERY 12 HOURS SUBQ 03/23/20 21:00 06/21/20 20:59 03/28/20 08:13 Fentanyl Citrate 1000 mcg/Sodium Chloride 100 ml @ 0 mls/hr Q24H IV 03/27/20 22:30 04/03/20 22:29 03/27/20 22:56 Hydralazine HCl (Apresoline) 10 mg Q6H PRN IV For High Blood Pressure 03/24/20 16:45 06/22/20 16:44 Insulin Aspart (NovoLOG) EVERY 4 HOURS SUBQ 03/26/20 09:00 06/24/20 08:59 03/28/20 08:57 Insulin Aspart (NovoLOG) 10 units EVERY 4 HOURS SUBQ 03/28/20 09:00 06/26/20 08:59 03/28/20 08:58 Insulin Detemir (Levemir) 40 units Q12HR SUBQ 03/27/20 21:00 06/20/20 18:59 03/28/20 08:56 Levofloxacin (Levaquin) 750 mg DAILY NG 03/28/20 09:00 04/04/20 08:59 03/28/20 08:12 Levothyroxine Sodium (Synthroid) 50 mcg DAILY IV 03/21/20 09:00 04/17/20 11:59 03/28/20 08:11 Lorazepam (Ativan 2mg/ml 1ml) 1 mg Q2H PRN IV For Anxiety 03/25/20 16:30 04/01/20 16:29 03/25/20 23:39 Methylprednisolone Sodium Succinate (Solu-MEDROL) 20 mg DAILY IVP 03/28/20 09:00 03/30/20 08:59 03/28/20 08:13 Midodrine (Pro-Amatine) 10 mg THREE TIMES A DAY NG 03/27/20 09:00 06/20/20 12:29 03/28/20 08:11 Non-Formulary Medication (Non-Formulary Med) 1 ea DAILY IV 03/18/20 09:00 04/17/20 08:59 UNV Norepinephrine Bitartrate 4 mg/ Dextrose 250 ml @ 0 mls/hr Q24H PRN IV For hypotension 03/25/20 16:30 04/24/20 16:29 Vasopressin 100 units/Sodium Chloride 100 ml @ 0 mls/hr Q24H PRN IV For hypotension 03/16/20 11:00 04/15/20 10:59 03/19/20 18:03 Last 24 Hour Vital Signs Date Time Temp Pulse Resp B/P (MAP) Pulse Ox O2 Delivery O2 Flow Rate FiO2 03/28/20 10:49 85 24 50 03/28/20 10:00 24 Mechanical Ventilator 50 03/28/20 10:00 146/68 03/28/20 10:00 88 24 72/34 (47) 97 03/28/20 09:00 88 24 99/48 (65) 100 03/28/20 09:00 24 Mechanical Ventilator 50 03/28/20 09:00 99/48 03/28/20 08:59 113/50 03/28/20 08:30 88 24 118/51 (73) 99 03/28/20 08:00 98.8 86 24 118/63 (81) 99 03/28/20 08:00 Mechanical Ventilator Mechanical Ventilator 03/28/20 08:00 24 Mechanical Ventilator 50 03/28/20 08:00 118/63 03/28/20 08:00 88 03/28/20 08:00 50 03/28/20 07:30 86 24 50 03/28/20 07:30 86 24 132/60 (84) 100 03/28/20 07:00 24 Mechanical Ventilator 50 03/28/20 07:00 129/58 03/28/20 07:00 86 24 129/58 (81) 100 03/28/20 06:00 24 Mechanical Ventilator 50 03/28/20 06:00 120/68 03/28/20 06:00 88 24 120/68 (85) 100 03/28/20 05:36 115/57 03/28/20 05:00 89 24 115/57 (76) 97 03/28/20 05:00 24 Mechanical Ventilator 50 03/28/20 05:00 115/57 03/28/20 04:00 86 03/28/20 04:00 98.0 86 24 125/53 (77) 98 03/28/20 04:00 24 Mechanical Ventilator 50 03/28/20 04:00 125/53 03/28/20 04:00 Mechanical Ventilator Mechanical Ventilator 03/28/20 04:00 50 03/28/20 03:32 86 24 50 03/28/20 03:00 24 Mechanical Ventilator 50 03/28/20 03:00 153/68 03/28/20 03:00 85 24 143/69 (93) 100 03/28/20 02:44 110/55 03/28/20 02:00 87 24 110/55 (73) 100 03/28/20 02:00 24 Mechanical Ventilator 50 03/28/20 02:00 110/55 03/28/20 01:00 86 24 115/60 (78) 100 03/28/20 01:00 24 Mechanical Ventilator 50 03/28/20 01:00 115/60 03/28/20 00:00 98.8 84 24 130/66 (87) 100 03/28/20 00:00 84 03/28/20 00:00 24 Mechanical Ventilator 50 03/28/20 00:00 24 Mechanical Ventilator 50 03/28/20 00:00 122/84 03/28/20 00:00 122/84 03/28/20 00:00 50 03/28/20 00:00 Mechanical Ventilator Mechanical Ventilator 03/27/20 23:51 84 24 50 03/27/20 23:00 85 24 117/62 (80) 100 03/27/20 23:00 24 Mechanical Ventilator 50 03/27/20 23:00 126/65 03/27/20 22:56 24 Mechanical Ventilator 50 03/27/20 22:30 110/56 03/27/20 22:15 102/50 03/27/20 22:00 24 Mechanical Ventilator 50 03/27/20 22:00 94/44 03/27/20 22:00 87 24 94/46 (62) 100 03/27/20 21:30 24 Mechanical Ventilator 50 03/27/20 21:30 94/47 03/27/20 21:00 83 24 104/54 (71) 100 03/27/20 21:00 24 Mechanical Ventilator 50 03/27/20 21:00 100/51 03/27/20 20:00 82 03/27/20 20:00 Mechanical Ventilator Mechanical Ventilator 03/27/20 20:00 50 03/27/20 20:00 99/48 03/27/20 20:00 97.7 82 24 113/60 (77) 100 03/27/20 19:54 82 24 50 03/27/20 19:45 82 24 112/58 (76) 100 03/27/20 19:30 83 24 107/55 (72) 100 03/27/20 19:15 84 24 105/54 (71) 100 03/27/20 19:00 24 Endotracheal Tube 50 03/27/20 19:00 89/47 03/27/20 19:00 86 24 89/47 (61) 99 03/27/20 18:30 85 24 88/45 (59) 99 03/27/20 18:07 91/50 03/27/20 18:00 84 24 91/50 (64) 98 03/27/20 18:00 24 Endotracheal Tube 50 03/27/20 18:00 86/44 03/27/20 17:30 83 25 91/44 (60) 100 03/27/20 17:00 82 24 99/54 (69) 100 03/27/20 17:00 24 Endotracheal Tube 50 03/27/20 17:00 101/53 03/27/20 16:30 82 24 102/57 (72) 100 03/27/20 16:00 97.2 82 24 100/56 (71) 100 03/27/20 16:00 Mechanical Ventilator Mechanical Ventilator 03/27/20 16:00 40 03/27/20 16:00 23 Endotracheal Tube 50 03/27/20 16:00 82/46 03/27/20 15:30 85 24 94/46 (62) 100 03/27/20 15:29 84 03/27/20 15:15 86 24 50 03/27/20 15:00 24 Endotracheal Tube 50 03/27/20 15:00 127/63 03/27/20 15:00 87 24 91/45 (60) 92 03/27/20 14:30 99.3 86 24 97/51 (66) 92 03/27/20 14:01 102/50 03/27/20 14:00 24 Endotracheal Tube 35 03/27/20 14:00 102/50 03/27/20 14:00 85 24 104/55 (71) 93 03/27/20 13:30 83 24 107/62 (77) 95 03/27/20 13:00 24 Endotracheal Tube 35 03/27/20 13:00 105/60 03/27/20 13:00 83 24 105/60 (75) 96 03/27/20 12:30 84 24 117/68 (84) 97 03/27/20 12:00 40 03/27/20 12:00 24 Endotracheal Tube 35 03/27/20 12:00 104/64 03/27/20 12:00 98.2 85 24 109/64 (79) 96 03/27/20 12:00 Mechanical Ventilator Mechanical Ventilator 03/27/20 11:35 86 03/27/20 11:30 87 24 97/48 (64) 94 03/27/20 11:00 24 Endotracheal Tube 35 03/27/20 11:00 92/49 03/27/20 11:00 88 24 92/49 (63) 94 03/27/20 10:52 87 24 40 03/27/20 10:30 87 24 101/56 (71) 94 03/27/20 10:00 24 Endotracheal Tube 35 03/27/20 10:00 86 24 106/64 (78) 95 03/27/20 09:45 85 24 110/66 (81) 96 03/27/20 09:34 126/69 03/27/20 09:30 85 24 126/69 (88) 98 03/27/20 09:15 84 23 90/50 (63) 95 03/27/20 09:00 85 24 115/71 (86) 97 03/27/20 09:00 24 Endotracheal Tube 35 03/27/20 09:00 115/71 03/27/20 08:30 86 24 126/70 (88) 98 03/27/20 08:09 86 24 40 03/27/20 08:00 98.9 87 24 114/64 (81) 97 03/27/20 08:00 Mechanical Ventilator Mechanical Ventilator 03/27/20 08:00 24 Endotracheal Tube 35 03/27/20 08:00 116/65 03/27/20 08:00 40 03/27/20 07:13 91 03/27/20 07:00 24 Mechanical Ventilator 35 03/27/20 07:00 95/52 03/27/20 07:00 91 24 95/52 (66) 93 03/27/20 06:45 93/53 03/27/20 06:30 90/50 03/27/20 06:15 94/56 03/27/20 06:00 24 Mechanical Ventilator 35 03/27/20 06:00 104/60 03/27/20 06:00 88 24 104/60 (75) 94 03/27/20 05:45 104/60 03/27/20 05:30 105/66 03/27/20 05:15 109/68 03/27/20 05:00 88 24 116/70 (85) 98 03/27/20 05:00 24 Mechanical Ventilator 35 03/27/20 05:00 116/70 03/27/20 04:45 119/69 03/27/20 04:30 105/63 03/27/20 04:15 92/48 03/27/20 04:00 25 Mechanical Ventilator 40 03/27/20 04:00 98/57 03/27/20 04:00 87 03/27/20 04:00 Mechanical Ventilator Mechanical Ventilator 03/27/20 04:00 40 03/27/20 04:00 99.0 87 25 98/57 (71) 97 03/27/20 03:36 87 23 40 03/27/20 03:00 24 Mechanical Ventilator 40 03/27/20 03:00 103/62 03/27/20 03:00 88 24 103/62 (76) 95 03/27/20 02:00 87 24 119/74 (89) 97 03/27/20 02:00 24 Mechanical Ventilator 40 03/27/20 02:00 107/63 03/27/20 01:00 88 24 116/73 (87) 97 03/27/20 01:00 24 Mechanical Ventilator 40 03/27/20 01:00 116/73 03/27/20 00:00 99.8 92 24 113/66 (82) 94 03/27/20 00:00 Mechanical Ventilator Mechanical Ventilator 03/27/20 00:00 92 03/27/20 00:00 24 Mechanical Ventilator 40 03/27/20 00:00 113/66 03/26/20 23:15 88 23 40 03/26/20 23:00 24 Mechanical Ventilator 40 03/26/20 23:00 118/72 03/26/20 23:00 118/72 03/26/20 23:00 89 24 118/72 (87) 95 03/26/20 22:30 87 24 124/73 (90) 96 03/26/20 22:00 89 24 104/60 (75) 95 03/26/20 22:00 24 Mechanical Ventilator 40 03/26/20 22:00 125/80 03/26/20 21:00 24 Mechanical Ventilator 60 03/26/20 21:00 95/58 03/26/20 21:00 91 24 91/52 (65) 93 03/26/20 20:00 60 03/26/20 20:00 Mechanical Ventilator Mechanical Ventilator 03/26/20 20:00 24 Mechanical Ventilator 60 03/26/20 20:00 105/68 03/26/20 20:00 97.7 89 24 105/68 (80) 96 03/26/20 20:00 88 03/26/20 19:30 88 24 105/64 (78) 95 03/26/20 19:10 87 24 40 03/26/20 19:00 88 24 108/65 (79) 96 03/26/20 19:00 24 Endotracheal Tube 40 03/26/20 19:00 108/65 03/26/20 18:15 88 24 94/50 (65) 94 03/26/20 18:00 24 Endotracheal Tube 40 03/26/20 18:00 94/50 03/26/20 18:00 91 24 92/54 (67) 92 03/26/20 17:34 91 24 90/54 (66) 92 03/26/20 17:04 91 24 104/68 (80) 99 03/26/20 17:00 25 Endotracheal Tube 40 03/26/20 17:00 102/64 03/26/20 16:40 117/75 03/26/20 16:30 98.5 89 27 112/72 (85) 99 03/26/20 16:00 Mechanical Ventilator Mechanical Ventilator 03/26/20 16:00 24 Endotracheal Tube 60 03/26/20 16:00 117/75 03/26/20 16:00 60 03/26/20 16:00 89 27 117/75 (89) 99 03/26/20 16:00 89 03/26/20 15:45 89 24 124/84 (97) 99 03/26/20 15:30 90 24 111/69 (83) 99 03/26/20 15:30 89 24 124/84 (97) 99 03/26/20 15:15 90 24 106/66 (79) 99 03/26/20 15:05 88 24 40 03/26/20 15:00 24 Endotracheal Tube 60 03/26/20 15:00 106/66 03/26/20 15:00 91 24 141/84 (103) 100 03/26/20 14:30 91 24 139/81 (100) 100 03/26/20 14:00 24 Endotracheal Tube 60 03/26/20 14:00 135/42 03/26/20 14:00 91 24 141/79 (99) 99 03/26/20 13:30 92 24 125/76 (92) 100 03/26/20 13:00 24 Endotracheal Tube 60 03/26/20 13:00 124/74 03/26/20 13:00 93 24 124/73 (90) 99 03/26/20 12:30 93 31 123/70 (87) 99 03/26/20 12:00 Mechanical Ventilator Mechanical Ventilator 03/26/20 12:00 94 03/26/20 12:00 24 Endotracheal Tube 60 03/26/20 12:00 112/63 03/26/20 12:00 60 03/26/20 12:00 94 24 116/69 (85) 99 03/26/20 11:30 94 24 123/70 (87) 99 Intake and Output 5/11/20 5/12/20 19:00 07:00 Intake Total 2215.070 ml 2926.75205 ml Output Total 1875 ml 715 ml Balance 340.070 ml 2211.18761 ml Free Water 200 ml 300 ml IV Total 1595.070 ml 2206.04679 ml Tube Feeding 420 ml 420 ml Output Urine Total 1725 ml 715 ml Stool Total 150 ml # Bowel Movements 100 Labs Test 03/25/20 11:54 03/26/20 04:00 03/26/20 07:32 03/26/20 08:30 Arterial Blood pH 7.500 (7.350-7.450) 7.439 (7.350-7.450) Arterial Blood Partial Pressure CO2 56.0 mmHg (35.0-45.0) 67.6 mmHg (35.0-45.0) Arterial Blood Partial Pressure O2 234.9 mmHg (75.0-100.0) 104.7 mmHg (75.0-100.0) Arterial Blood HCO3 42.7 mmol/L (22.0-26.0) 44.7 mmol/L (22.0-26.0) Arterial Blood Oxygen Saturation 99.2 % (95-100) 96.6 % (95-100) Arterial Blood Base Excess 17.3 (-2-2) 17.8 (-2-2) Joaquin Test Positive Positive White Blood Count 14.6 K/UL (4.8-10.8) Red Blood Count 2.79 M/UL (4.20-5.40) Hemoglobin 9.5 G/DL (12.0-16.0) Hematocrit 29.1 % (37.0-47.0) Mean Corpuscular Volume 104 FL (80-99) Mean Corpuscular Hemoglobin 34.1 PG (27.0-31.0) Mean Corpuscular Hemoglobin Concent 32.7 G/DL (32.0-36.0) Red Cell Distribution Width 19.7 % (11.6-14.8) Platelet Count 166 K/UL (150-450) Mean Platelet Volume 7.1 FL (6.5-10.1) Neutrophils (%) (Auto) % (45.0-75.0) Lymphocytes (%) (Auto) % (20.0-45.0) Monocytes (%) (Auto) % (1.0-10.0) Eosinophils (%) (Auto) % (0.0-3.0) Basophils (%) (Auto) % (0.0-2.0) Differential Total Cells Counted 100 Neutrophils % (Manual) 90 % (45-75) Lymphocytes % (Manual) 5 % (20-45) Monocytes % (Manual) 5 % (1-10) Eosinophils % (Manual) 0 % (0-3) Basophils % (Manual) 0 % (0-2) Band Neutrophils 0 % (0-8) Platelet Estimate Adequate Platelet Morphology Normal Hypochromasia 1+ Anisocytosis 1+ Macrocytosis 1+ Sodium Level 154 MMOL/L (136-145) Potassium Level 4.5 MMOL/L (3.5-5.1) Chloride Level 109 MMOL/L (98-107) Carbon Dioxide Level > 45 MMOL/L (21-32) Blood Urea Nitrogen 25 mg/dL (7-18) Creatinine 0.8 MG/DL (0.55-1.30) Estimat Glomerular Filtration Rate > 60 mL/min (>60) Glucose Level 310 MG/DL (74-106) Calcium Level 8.7 MG/DL (8.5-10.1) Phosphorus Level 3.3 MG/DL (2.5-4.9) Magnesium Level 2.4 MG/DL (1.8-2.4) Total Bilirubin 2.6 MG/DL (0.2-1.0) Direct Bilirubin 1.6 MG/DL (0.0-0.3) Aspartate Amino Transf (AST/SGOT) 203 U/L (15-37) Alanine Aminotransferase (ALT/SGPT) 161 U/L (12-78) Alkaline Phosphatase 223 U/L (46-116) C-Reactive Protein, Quantitative 2.8 mg/dL (0.00-0.90) Pro-B-Type Natriuretic Peptide 29833 pg/mL (0-125) Total Protein 7.6 G/DL (6.4-8.2) Albumin 2.4 G/DL (3.4-5.0) Globulin 5.2 g/dL Albumin/Globulin Ratio 0.5 (1.0-2.7) Vancomycin Level Trough 17.1 ug/mL (5.0-12.0) Test 03/27/20 04:46 03/27/20 08:05 03/27/20 17:12 03/28/20 05:09 White Blood Count 18.0 K/UL (4.8-10.8) 22.5 K/UL (4.8-10.8) Red Blood Count 2.95 M/UL (4.20-5.40) 2.74 M/UL (4.20-5.40) Hemoglobin 10.3 G/DL (12.0-16.0) 9.8 G/DL (12.0-16.0) Hematocrit 32.4 % (37.0-47.0) 30.6 % (37.0-47.0) Mean Corpuscular Volume 110 FL (80-99) 112 FL (80-99) Mean Corpuscular Hemoglobin 34.8 PG (27.0-31.0) 35.8 PG (27.0-31.0) Mean Corpuscular Hemoglobin Concent 31.7 G/DL (32.0-36.0) 32.1 G/DL (32.0-36.0) Red Cell Distribution Width 22.7 % (11.6-14.8) 22.4 % (11.6-14.8) Platelet Count 154 K/UL (150-450) 140 K/UL (150-450) Mean Platelet Volume 6.9 FL (6.5-10.1) 7.1 FL (6.5-10.1) Neutrophils (%) (Auto) % (45.0-75.0) % (45.0-75.0) Lymphocytes (%) (Auto) % (20.0-45.0) % (20.0-45.0) Monocytes (%) (Auto) % (1.0-10.0) % (1.0-10.0) Eosinophils (%) (Auto) % (0.0-3.0) % (0.0-3.0) Basophils (%) (Auto) % (0.0-2.0) % (0.0-2.0) Differential Total Cells Counted 100 100 Neutrophils % (Manual) 83 % (45-75) 87 % (45-75) Lymphocytes % (Manual) 8 % (20-45) 5 % (20-45) Monocytes % (Manual) 9 % (1-10) 7 % (1-10) Eosinophils % (Manual) 0 % (0-3) 1 % (0-3) Basophils % (Manual) 0 % (0-2) 0 % (0-2) Band Neutrophils 0 % (0-8) 0 % (0-8) Nucleated Red Blood Cells 3 /100 WBC Platelet Estimate Adequate Decreased Platelet Morphology Normal Normal Hypochromasia 1+ Anisocytosis 3+ 2+ Macrocytosis 2+ 2+ Sodium Level 171 MMOL/L (136-145) 160 MMOL/L (136-145) Potassium Level 3.6 MMOL/L (3.5-5.1) 4.3 MMOL/L (3.5-5.1) Chloride Level 122 MMOL/L (98-107) 117 MMOL/L (98-107) Carbon Dioxide Level > 45 MMOL/L (21-32) 44 MMOL/L (21-32) Blood Urea Nitrogen 29 mg/dL (7-18) 38 mg/dL (7-18) Creatinine 0.8 MG/DL (0.55-1.30) 0.9 MG/DL (0.55-1.30) Estimat Glomerular Filtration Rate > 60 mL/min (>60) > 60 mL/min (>60) Glucose Level 304 MG/DL (74-106) 446 MG/DL (74-106) Uric Acid 5.7 MG/DL (2.6-7.2) 5.5 MG/DL (2.6-7.2) Calcium Level 9.5 MG/DL (8.5-10.1) 9.4 MG/DL (8.5-10.1) Phosphorus Level 3.7 MG/DL (2.5-4.9) 4.1 MG/DL (2.5-4.9) Magnesium Level 3.0 MG/DL (1.8-2.4) 2.9 MG/DL (1.8-2.4) Total Bilirubin 2.3 MG/DL (0.2-1.0) 1.8 MG/DL (0.2-1.0) Direct Bilirubin 1.6 MG/DL (0.0-0.3) 1.1 MG/DL (0.0-0.3) Aspartate Amino Transf (AST/SGOT) 261 U/L (15-37) 354 U/L (15-37) Alanine Aminotransferase (ALT/SGPT) 210 U/L (12-78) 296 U/L (12-78) Alkaline Phosphatase 200 U/L (46-116) 279 U/L (46-116) Ammonia 65 umol/L (11-32) 75 umol/L (11-32) C-Reactive Protein, Quantitative 2.6 mg/dL (0.00-0.90) 2.1 mg/dL (0.00-0.90) Pro-B-Type Natriuretic Peptide 4916 pg/mL (0-125) 1806 pg/mL (0-125) Total Protein 7.4 G/DL (6.4-8.2) 7.0 G/DL (6.4-8.2) Albumin 2.4 G/DL (3.4-5.0) 2.3 G/DL (3.4-5.0) Globulin 5.0 g/dL 4.7 g/dL Albumin/Globulin Ratio 0.5 (1.0-2.7) 0.5 (1.0-2.7) Thyroid Stimulating Hormone (TSH) 3.769 uiU/mL (0.358-3.740) Arterial Blood pH 7.402 (7.350-7.450) 7.380 (7.350-7.450) Arterial Blood Partial Pressure CO2 75.4 mmHg (35.0-45.0) 77.8 mmHg (35.0-45.0) Arterial Blood Partial Pressure O2 72.1 mmHg (75.0-100.0) 101.9 mmHg (75.0-100.0) Arterial Blood HCO3 45.9 mmol/L (22.0-26.0) 45.0 mmol/L (22.0-26.0) Arterial Blood Oxygen Saturation 92.1 % (95-100) 96.4 % (95-100) Arterial Blood Base Excess 18.0 (-2-2) 17.0 (-2-2) Joaquin Test Positive Positive Gamma Glutamyl Transpeptidase 599 U/L (5-85) Total Creatine Kinase 62 U/L (26-308) Height (Feet): 5 Height (Inches): 1.00 Weight (Pounds): 227 Objective Physical Exam: Vitals: reviewed General: NAD HEENT: nc, at++ngt Neck: supple Chest: crackles b/l, mech breath sounds ++intubated Cardiovascular: RRR, no s3, s4 EXT ++ Significant edema and erythema bilateral lower extremity, patient also has blistering on both feet Neurologic: sedated Skin: other - As above Brett Mcclain MD March 28, 2020 11:11
--- NOTE | 2020-03-28 11:50 | Nephrology Progress Note ---
Assessment/Plan Problem List: (1) Electrolyte imbalance Assessment: Hyponatremia resolved -hyperkalemia resolved (2) COVID-19 (3) Respiratory failure with hypoxia (4) Cellulitis (5) Hypothyroid Assessment Hyponatremia. Serum sodium started drifting down from March 16. Hyperkalemia. Septic shock. Acute respiratory failure. Respiratory failure and COVID pneumonia. History of cirrhosis/splenomegaly Anemia Bilateral lower extremity cellulitis Plan March 28: Serum sodium down to 160 Continue with D5W Continue per pulmonary March 27: Serum sodium vahe Patient retaining CO2 Will start D5W IV fluid Hold Diamox for now until further comments from security management specialist Continue to monitor electrolytes Midodrine dose increased March 26: Remains unstable. Lasix and potassium chloride discontinued. IV Diamox initiated. ABG noted. Midodrine initiated. Continue per pulmonary and ID. Statins discontinued due to elevated liver enzymes. Continue to monitor electrolytes and renal parameters and ABG. Patient remains full code. 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 per brick chimney supervisor Taper steroids's deferred to security management specialist Urine sodium is below 20 Serum ammonia is elevated will start lactulose Patient on Solu-Medrol and Solu-Cortef will discontinue Solu-Cortef Will try to gently diurese for severe edema meanwhile administering albumin 25% as needed Monitor electrolytes and renal parameters We will add midodrine 10 mg 3 times a day via NG tube Decrease dosage of IV Synthroid Discussed with DAO Starr Subjective ROS Limited/Unobtainable: Yes Objective Objective Last 24 Hour Vital Signs Date Time Temp Pulse Resp B/P (MAP) Pulse Ox O2 Delivery O2 Flow Rate FiO2 03/28/20 11:00 86 24 133/68 (89) 98 03/28/20 10:49 85 24 50 03/28/20 10:00 24 Mechanical Ventilator 50 03/28/20 10:00 146/68 03/28/20 10:00 88 24 72/34 (47) 97 03/28/20 09:00 88 24 99/48 (65) 100 03/28/20 09:00 24 Mechanical Ventilator 50 03/28/20 09:00 99/48 03/28/20 08:59 113/50 5/12/20 08:30 88 24 118/51 (73) 99 03/28/20 08:00 98.8 86 24 118/63 (81) 99 03/28/20 08:00 Mechanical Ventilator Mechanical Ventilator 03/28/20 08:00 24 Mechanical Ventilator 50 03/28/20 08:00 118/63 03/28/20 08:00 88 03/28/20 08:00 50 03/28/20 07:30 86 24 50 03/28/20 07:30 86 24 132/60 (84) 100 03/28/20 07:00 24 Mechanical Ventilator 50 03/28/20 07:00 129/58 03/28/20 07:00 86 24 129/58 (81) 100 03/28/20 06:00 24 Mechanical Ventilator 50 03/28/20 06:00 120/68 03/28/20 06:00 88 24 120/68 (85) 100 03/28/20 05:36 115/57 03/28/20 05:00 89 24 115/57 (76) 97 03/28/20 05:00 24 Mechanical Ventilator 50 03/28/20 05:00 115/57 03/28/20 04:00 86 03/28/20 04:00 98.0 86 24 125/53 (77) 98 03/28/20 04:00 24 Mechanical Ventilator 50 03/28/20 04:00 125/53 03/28/20 04:00 Mechanical Ventilator Mechanical Ventilator 03/28/20 04:00 50 03/28/20 03:32 86 24 50 03/28/20 03:00 24 Mechanical Ventilator 50 03/28/20 03:00 153/68 03/28/20 03:00 85 24 143/69 (93) 100 03/28/20 02:44 110/55 03/28/20 02:00 87 24 110/55 (73) 100 03/28/20 02:00 24 Mechanical Ventilator 50 03/28/20 02:00 110/55 03/28/20 01:00 86 24 115/60 (78) 100 03/28/20 01:00 24 Mechanical Ventilator 50 03/28/20 01:00 115/60 03/28/20 00:00 98.8 84 24 130/66 (87) 100 03/28/20 00:00 84 03/28/20 00:00 24 Mechanical Ventilator 50 03/28/20 00:00 24 Mechanical Ventilator 50 03/28/20 00:00 122/84 03/28/20 00:00 122/84 03/28/20 00:00 50 03/28/20 00:00 Mechanical Ventilator Mechanical Ventilator 03/27/20 23:51 84 24 50 03/27/20 23:00 85 24 117/62 (80) 100 03/27/20 23:00 24 Mechanical Ventilator 50 03/27/20 23:00 126/65 03/27/20 22:56 24 Mechanical Ventilator 50 03/27/20 22:30 110/56 03/27/20 22:15 102/50 03/27/20 22:00 24 Mechanical Ventilator 50 03/27/20 22:00 94/44 03/27/20 22:00 87 24 94/46 (62) 100 03/27/20 21:30 24 Mechanical Ventilator 50 03/27/20 21:30 94/47 03/27/20 21:00 83 24 104/54 (71) 100 03/27/20 21:00 24 Mechanical Ventilator 50 03/27/20 21:00 100/51 03/27/20 20:00 82 03/27/20 20:00 Mechanical Ventilator Mechanical Ventilator 03/27/20 20:00 50 03/27/20 20:00 99/48 03/27/20 20:00 97.7 82 24 113/60 (77) 100 03/27/20 19:54 82 24 50 03/27/20 19:45 82 24 112/58 (76) 100 03/27/20 19:30 83 24 107/55 (72) 100 03/27/20 19:15 84 24 105/54 (71) 100 03/27/20 19:00 24 Endotracheal Tube 50 03/27/20 19:00 89/47 03/27/20 19:00 86 24 89/47 (61) 99 03/27/20 18:30 85 24 88/45 (59) 99 03/27/20 18:07 91/50 03/27/20 18:00 84 24 91/50 (64) 98 03/27/20 18:00 24 Endotracheal Tube 50 03/27/20 18:00 86/44 03/27/20 17:30 83 25 91/44 (60) 100 03/27/20 17:00 82 24 99/54 (69) 100 03/27/20 17:00 24 Endotracheal Tube 50 03/27/20 17:00 101/53 03/27/20 16:30 82 24 102/57 (72) 100 03/27/20 16:00 97.2 82 24 100/56 (71) 100 03/27/20 16:00 Mechanical Ventilator Mechanical Ventilator 03/27/20 16:00 40 03/27/20 16:00 23 Endotracheal Tube 50 03/27/20 16:00 82/46 03/27/20 15:30 85 24 94/46 (62) 100 03/27/20 15:29 84 03/27/20 15:15 86 24 50 03/27/20 15:00 24 Endotracheal Tube 50 03/27/20 15:00 127/63 03/27/20 15:00 87 24 91/45 (60) 92 03/27/20 14:30 99.3 86 24 97/51 (66) 92 03/27/20 14:01 102/50 03/27/20 14:00 24 Endotracheal Tube 35 03/27/20 14:00 102/50 03/27/20 14:00 85 24 104/55 (71) 93 03/27/20 13:30 83 24 107/62 (77) 95 03/27/20 13:00 24 Endotracheal Tube 35 03/27/20 13:00 105/60 03/27/20 13:00 83 24 105/60 (75) 96 03/27/20 12:30 84 24 117/68 (84) 97 03/27/20 12:00 40 03/27/20 12:00 24 Endotracheal Tube 35 03/27/20 12:00 104/64 03/27/20 12:00 98.2 85 24 109/64 (79) 96 03/27/20 12:00 Mechanical Ventilator Mechanical Ventilator Intake and Output 03/27/20 03/28/20 19:00 07:00 Intake Total 2215.070 ml 2926.24171 ml Output Total 1875 ml 715 ml Balance 340.070 ml 2211.78425 ml Free Water 200 ml 300 ml IV Total 1595.070 ml 2206.03929 ml Tube Feeding 420 ml 420 ml Output Urine Total 1725 ml 715 ml Stool Total 150 ml # Bowel Movements 100 Laboratory Tests 03/27/20 17:12: Arterial Blood pH 7.380, Arterial Blood Partial Pressure CO2 77.8*H, Arterial Blood Partial Pressure O2 101.9H, Arterial Blood HCO3 45.0*H, Arterial Blood Oxygen Saturation 96.4, Arterial Blood Base Excess 17.0*H, Joaquin Test Positive 03/28/20 05:09: White Blood Count 22.5*H, Red Blood Count 2.74L, Hemoglobin 9.8L, Hematocrit 30.6L, Mean Corpuscular Volume 112H, Mean Corpuscular Hemoglobin 35.8H, Mean Corpuscular Hemoglobin Concent 32.1, Red Cell Distribution Width 22.4H, Platelet Count 140L, Mean Platelet Volume 7.1, Neutrophils (%) (Auto) , Lymphocytes (%) (Auto) , Monocytes (%) (Auto) , Eosinophils (%) (Auto) , Basophils (%) (Auto) , Differential Total Cells Counted 100, Neutrophils % ( Manual) 87H, Lymphocytes % (Manual) 5L, Monocytes % (Manual) 7, Eosinophils % ( Manual) 1, Basophils % (Manual) 0, Band Neutrophils 0, Platelet Estimate DecreasedL, Platelet Morphology Normal, Anisocytosis 2+, Macrocytosis 2+, Sodium Level 160H, Potassium Level 4.3, Chloride Level 117H, Carbon Dioxide Level 44*H, Blood Urea Nitrogen 38H, Creatinine 0.9, Estimat Glomerular Filtration Rate > 60, Glucose Level 446#H, Uric Acid 5.5, Calcium Level 9.4, Phosphorus Level 4.1, Magnesium Level 2.9H, Total Bilirubin 1.8H, Direct Bilirubin 1.1H, Gamma Glutamyl Transpeptidase 599H, Aspartate Amino Transf (AST/ SGOT) 354H, Alanine Aminotransferase (ALT/SGPT) 296H, Alkaline Phosphatase 279H , Ammonia 75H, Total Creatine Kinase 62, C-Reactive Protein, Quantitative 2.1H, Pro-B-Type Natriuretic Peptide 1806H, Total Protein 7.0, Albumin 2.3L, Globulin 4.7, Albumin/Globulin Ratio 0.5L Height (Feet): 5 Height (Inches): 1.00 Weight (Pounds): 227 General Appearance: no apparent distress EENT: other - Intubated and vented Cardiovascular: tachycardia Respiratory/Chest: decreased breath sounds Abdomen: soft Fouladian,Cristhian MD March 28, 2020 11:50
--- NOTE | 2020-03-28 12:24 | Surgery Progress Note ---
Surgery Progress Note Subjective Additional Comments leukocytosis - likely steroid related AC 24 TV 400 PEEP 10 FiO2 50% tolerating tube feeds Objective Last 24 Hour Vital Signs Date Time Temp Pulse Resp B/P (MAP) Pulse Ox O2 Delivery O2 Flow Rate FiO2 03/28/20 12:00 89 03/28/20 11:00 86 24 133/68 (89) 98 03/28/20 10:49 85 24 50 03/28/20 10:00 24 Mechanical Ventilator 50 03/28/20 10:00 146/68 03/28/20 10:00 88 24 72/34 (47) 97 03/28/20 09:00 88 24 99/48 (65) 100 03/28/20 09:00 24 Mechanical Ventilator 50 03/28/20 09:00 99/48 03/28/20 08:59 113/50 03/28/20 08:30 88 24 118/51 (73) 99 03/28/20 08:00 98.8 86 24 118/63 (81) 99 03/28/20 08:00 Mechanical Ventilator Mechanical Ventilator 03/28/20 08:00 24 Mechanical Ventilator 50 03/28/20 08:00 118/63 03/28/20 08:00 88 03/28/20 08:00 50 03/28/20 07:30 86 24 50 03/28/20 07:30 86 24 132/60 (84) 100 03/28/20 07:00 24 Mechanical Ventilator 50 03/28/20 07:00 129/58 03/28/20 07:00 86 24 129/58 (81) 100 03/28/20 06:00 24 Mechanical Ventilator 50 03/28/20 06:00 120/68 03/28/20 06:00 88 24 120/68 (85) 100 03/28/20 05:36 115/57 03/28/20 05:00 89 24 115/57 (76) 97 03/28/20 05:00 24 Mechanical Ventilator 50 03/28/20 05:00 115/57 03/28/20 04:00 86 03/28/20 04:00 98.0 86 24 125/53 (77) 98 03/28/20 04:00 24 Mechanical Ventilator 50 03/28/20 04:00 125/53 03/28/20 04:00 Mechanical Ventilator Mechanical Ventilator 03/28/20 04:00 50 03/28/20 03:32 86 24 50 03/28/20 03:00 24 Mechanical Ventilator 50 03/28/20 03:00 153/68 03/28/20 03:00 85 24 143/69 (93) 100 03/28/20 02:44 110/55 03/28/20 02:00 87 24 110/55 (73) 100 03/28/20 02:00 24 Mechanical Ventilator 50 03/28/20 02:00 110/55 03/28/20 01:00 86 24 115/60 (78) 100 03/28/20 01:00 24 Mechanical Ventilator 50 03/28/20 01:00 115/60 03/28/20 00:00 98.8 84 24 130/66 (87) 100 03/28/20 00:00 84 03/28/20 00:00 24 Mechanical Ventilator 50 03/28/20 00:00 24 Mechanical Ventilator 50 03/28/20 00:00 122/84 03/28/20 00:00 122/84 03/28/20 00:00 50 03/28/20 00:00 Mechanical Ventilator Mechanical Ventilator 03/27/20 23:51 84 24 50 03/27/20 23:00 85 24 117/62 (80) 100 03/27/20 23:00 24 Mechanical Ventilator 50 03/27/20 23:00 126/65 03/27/20 22:56 24 Mechanical Ventilator 50 03/27/20 22:30 110/56 03/27/20 22:15 102/50 03/27/20 22:00 24 Mechanical Ventilator 50 03/27/20 22:00 94/44 03/27/20 22:00 87 24 94/46 (62) 100 03/27/20 21:30 24 Mechanical Ventilator 50 03/27/20 21:30 94/47 03/27/20 21:00 83 24 104/54 (71) 100 03/27/20 21:00 24 Mechanical Ventilator 50 03/27/20 21:00 100/51 03/27/20 20:00 82 03/27/20 20:00 Mechanical Ventilator Mechanical Ventilator 03/27/20 20:00 50 03/27/20 20:00 99/48 03/27/20 20:00 97.7 82 24 113/60 (77) 100 03/27/20 19:54 82 24 50 03/27/20 19:45 82 24 112/58 (76) 100 03/27/20 19:30 83 24 107/55 (72) 100 03/27/20 19:15 84 24 105/54 (71) 100 03/27/20 19:00 24 Endotracheal Tube 50 03/27/20 19:00 89/47 03/27/20 19:00 86 24 89/47 (61) 99 03/27/20 18:30 85 24 88/45 (59) 99 03/27/20 18:07 91/50 03/27/20 18:00 84 24 91/50 (64) 98 03/27/20 18:00 24 Endotracheal Tube 50 03/27/20 18:00 86/44 03/27/20 17:30 83 25 91/44 (60) 100 03/27/20 17:00 82 24 99/54 (69) 100 03/27/20 17:00 24 Endotracheal Tube 50 03/27/20 17:00 101/53 03/27/20 16:30 82 24 102/57 (72) 100 03/27/20 16:00 97.2 82 24 100/56 (71) 100 03/27/20 16:00 Mechanical Ventilator Mechanical Ventilator 03/27/20 16:00 40 03/27/20 16:00 23 Endotracheal Tube 50 03/27/20 16:00 82/46 03/27/20 15:30 85 24 94/46 (62) 100 03/27/20 15:29 84 03/27/20 15:15 86 24 50 03/27/20 15:00 24 Endotracheal Tube 50 03/27/20 15:00 127/63 03/27/20 15:00 87 24 91/45 (60) 92 03/27/20 14:30 99.3 86 24 97/51 (66) 92 03/27/20 14:01 102/50 03/27/20 14:00 24 Endotracheal Tube 35 03/27/20 14:00 102/50 03/27/20 14:00 85 24 104/55 (71) 93 03/27/20 13:30 83 24 107/62 (77) 95 03/27/20 13:00 24 Endotracheal Tube 35 03/27/20 13:00 105/60 03/27/20 13:00 83 24 105/60 (75) 96 03/27/20 12:30 84 24 117/68 (73) 97 I&O Intake and Output 03/27/20 03/28/20 19:00 07:00 Intake Total 2215.070 ml 2926.72328 ml Output Total 1875 ml 715 ml Balance 340.070 ml 2211.73401 ml Free Water 200 ml 300 ml IV Total 1595.070 ml 2206.56253 ml Tube Feeding 420 ml 420 ml Output Urine Total 1725 ml 715 ml Stool Total 150 ml # Bowel Movements 100 Dressing: other Wound: other Drains: other Cardiovascular: RSR Respiratory: decreased breath sounds Abdomen: soft, non-tender, present bowel sounds, non-distended Extremities: edema, no cyanosis, pulses Laboratory Tests Test 03/27/20 17:12 03/28/20 05:09 Arterial Blood pH 7.380 (7.350-7.450) Arterial Blood Partial Pressure CO2 77.8 mmHg (35.0-45.0) *H Arterial Blood Partial Pressure O2 101.9 mmHg (75.0-100.0) H Arterial Blood HCO3 45.0 mmol/L (22.0-26.0) *H Arterial Blood Oxygen Saturation 96.4 % (95-100) Arterial Blood Base Excess 17.0 (-2-2) *H Joaquin Test Positive White Blood Count 22.5 K/UL (4.8-10.8) *H Red Blood Count 2.74 M/UL (4.20-5.40) L Hemoglobin 9.8 G/DL (12.0-16.0) L Hematocrit 30.6 % (37.0-47.0) L Mean Corpuscular Volume 112 FL (80-99) H Mean Corpuscular Hemoglobin 35.8 PG (27.0-31.0) H Mean Corpuscular Hemoglobin Concent 32.1 G/DL (32.0-36.0) Red Cell Distribution Width 22.4 % (11.6-14.8) H Platelet Count 140 K/UL (150-450) L Mean Platelet Volume 7.1 FL (6.5-10.1) Neutrophils (%) (Auto) % (45.0-75.0) Lymphocytes (%) (Auto) % (20.0-45.0) Monocytes (%) (Auto) % (1.0-10.0) Eosinophils (%) (Auto) % (0.0-3.0) Basophils (%) (Auto) % (0.0-2.0) Differential Total Cells Counted 100 Neutrophils % (Manual) 87 % (45-75) H Lymphocytes % (Manual) 5 % (20-45) L Monocytes % (Manual) 7 % (1-10) Eosinophils % (Manual) 1 % (0-3) Basophils % (Manual) 0 % (0-2) Band Neutrophils 0 % (0-8) Platelet Estimate Decreased L Platelet Morphology Normal Anisocytosis 2+ Macrocytosis 2+ Sodium Level 160 MMOL/L (136-145) H Potassium Level 4.3 MMOL/L (3.5-5.1) Chloride Level 117 MMOL/L (98-107) H Carbon Dioxide Level 44 MMOL/L (21-32) *H Blood Urea Nitrogen 38 mg/dL (7-18) H Creatinine 0.9 MG/DL (0.55-1.30) Estimat Glomerular Filtration Rate > 60 mL/min (>60) Glucose Level 446 MG/DL (74-106) #H Uric Acid 5.5 MG/DL (2.6-7.2) Calcium Level 9.4 MG/DL (8.5-10.1) Phosphorus Level 4.1 MG/DL (2.5-4.9) Magnesium Level 2.9 MG/DL (1.8-2.4) H Total Bilirubin 1.8 MG/DL (0.2-1.0) H Direct Bilirubin 1.1 MG/DL (0.0-0.3) H Gamma Glutamyl Transpeptidase 599 U/L (5-85) H Aspartate Amino Transf (AST/SGOT) 354 U/L (15-37) H Alanine Aminotransferase (ALT/SGPT) 296 U/L (12-78) H Alkaline Phosphatase 279 U/L (46-116) H Ammonia 75 umol/L (11-32) H Total Creatine Kinase 62 U/L (26-308) C-Reactive Protein, Quantitative 2.1 mg/dL (0.00-0.90) H Pro-B-Type Natriuretic Peptide 1806 pg/mL (0-125) H Total Protein 7.0 G/DL (6.4-8.2) Albumin 2.3 G/DL (3.4-5.0) L Globulin 4.7 g/dL Albumin/Globulin Ratio 0.5 (1.0-2.7) L Plan Problems: (1) Cellulitis Assessment & Plan: bilateral lower extremity cellulitis / edema chronic venous status changes dermatitis no abscess no purulent drainage ulcerations forming. keep lower extremity elevated while in bed apply skin protectant / moisturizing cream daily okay to shower okay to wrap soft after cream abx as per ID for cellulitis okay for diet duplex ordered trend labs will follow with recs thank you No evidence of deep venous thrombosis involving the visualized veins of the RIGHT lower extremity. refused eval of left COVID ++ cxr noted cont current supportive care improving labs stable improving slowly wean pressors as tolerated Patient is acutely worsened intubated on vent support 2 pressors now worsening labs worsening Prognosis is guarded we will continue with maximal support efforts weaning vent weaning pressors leukocytosis trend lft's Diffuse bilateral interstitial and airspace opacities (2) COVID-19 Assessment & Plan: see above Theron Sotomayor March 28, 2020 12:24
--- NOTE | 2020-03-28 12:28 | Infectious Diseases Prog Note ---
Assessment/Plan Assessment/Plan IMPRESSION: 1. Bilateral leg cellulitis,Pseudomonas in culture 2. Anemia. 3. Hypoxemic respiratory failure 4. Thrombocytopenia. 5. Homeless 6. Morbid obesity. 7. Cirrhosis 8. COVID19 pneumonia Positive03/07-03/12 9. Hepatitis C 10.septic shock 11. Pneumonia with Pseudomonas 12. DM & hyperglycemia 1. Diarrhea, lactulose was stopped today RECOMMENDATION: Will f/u COVID19 test Finished Plaquenil & Zithromax course Received a dose of Actemra & Ivermectin Continue Levaquin, Taper steroids Blood culture is negative so far Repeat COVID19 test Case was D/W RN Subjective ROS Limited/Unobtainable: Yes Constitutional: Denies: fever Cardiovascular: Reports: other - on Dopamin Gastrointestinal/Abdominal: Reports: diarrhea Allergies: Coded Allergies: No Known Allergies (Unverified , 02/29/20) Objective Vital Signs Last 24 Hour Vital Signs Date Time Temp Pulse Resp B/P (MAP) Pulse Ox O2 Delivery O2 Flow Rate FiO2 03/28/20 12:00 89 03/28/20 11:00 86 24 133/68 (89) 98 03/28/20 10:49 85 24 50 03/28/20 10:00 24 Mechanical Ventilator 50 03/28/20 10:00 146/68 03/28/20 10:00 88 24 72/34 (47) 97 03/28/20 09:00 88 24 99/48 (65) 100 03/28/20 09:00 24 Mechanical Ventilator 50 03/28/20 09:00 99/48 03/28/20 08:59 113/50 03/28/20 08:30 88 24 118/51 (73) 99 03/28/20 08:00 98.8 86 24 118/63 (81) 99 03/28/20 08:00 Mechanical Ventilator Mechanical Ventilator 03/28/20 08:00 24 Mechanical Ventilator 50 03/28/20 08:00 118/63 03/28/20 08:00 88 03/28/20 08:00 50 03/28/20 07:30 86 24 50 03/28/20 07:30 86 24 132/60 (84) 100 03/28/20 07:00 24 Mechanical Ventilator 50 03/28/20 07:00 129/58 03/28/20 07:00 86 24 129/58 (81) 100 03/28/20 06:00 24 Mechanical Ventilator 50 03/28/20 06:00 120/68 03/28/20 06:00 88 24 120/68 (85) 100 03/28/20 05:36 115/57 03/28/20 05:00 89 24 115/57 (76) 97 03/28/20 05:00 24 Mechanical Ventilator 50 03/28/20 05:00 115/57 03/28/20 04:00 86 03/28/20 04:00 98.0 86 24 125/53 (77) 98 03/28/20 04:00 24 Mechanical Ventilator 50 03/28/20 04:00 125/53 03/28/20 04:00 Mechanical Ventilator Mechanical Ventilator 03/28/20 04:00 50 03/28/20 03:32 86 24 50 03/28/20 03:00 24 Mechanical Ventilator 50 03/28/20 03:00 153/68 03/28/20 03:00 85 24 143/69 (93) 100 03/28/20 02:44 110/55 03/28/20 02:00 87 24 110/55 (73) 100 03/28/20 02:00 24 Mechanical Ventilator 50 03/28/20 02:00 110/55 03/28/20 01:00 86 24 115/60 (78) 100 03/28/20 01:00 24 Mechanical Ventilator 50 03/28/20 01:00 115/60 03/28/20 00:00 98.8 84 24 130/66 (87) 100 03/28/20 00:00 84 03/28/20 00:00 24 Mechanical Ventilator 50 03/28/20 00:00 24 Mechanical Ventilator 50 03/28/20 00:00 122/84 03/28/20 00:00 122/84 03/28/20 00:00 50 03/28/20 00:00 Mechanical Ventilator Mechanical Ventilator 03/27/20 23:51 84 24 50 03/27/20 23:00 85 24 117/62 (80) 100 03/27/20 23:00 24 Mechanical Ventilator 50 03/27/20 23:00 126/65 03/27/20 22:56 24 Mechanical Ventilator 50 03/27/20 22:30 110/56 03/27/20 22:15 102/50 03/27/20 22:00 24 Mechanical Ventilator 50 03/27/20 22:00 94/44 03/27/20 22:00 87 24 94/46 (62) 100 03/27/20 21:30 24 Mechanical Ventilator 50 03/27/20 21:30 94/47 03/27/20 21:00 83 24 104/54 (71) 100 03/27/20 21:00 24 Mechanical Ventilator 50 03/27/20 21:00 100/51 03/27/20 20:00 82 03/27/20 20:00 Mechanical Ventilator Mechanical Ventilator 03/27/20 20:00 50 03/27/20 20:00 99/48 03/27/20 20:00 97.7 82 24 113/60 (77) 100 03/27/20 19:54 82 24 50 03/27/20 19:45 82 24 112/58 (76) 100 03/27/20 19:30 83 24 107/55 (72) 100 03/27/20 19:15 84 24 105/54 (71) 100 03/27/20 19:00 24 Endotracheal Tube 50 03/27/20 19:00 89/47 03/27/20 19:00 86 24 89/47 (61) 99 03/27/20 18:30 85 24 88/45 (59) 99 03/27/20 18:07 91/50 03/27/20 18:00 84 24 91/50 (64) 98 03/27/20 18:00 24 Endotracheal Tube 50 03/27/20 18:00 86/44 03/27/20 17:30 83 25 91/44 (60) 100 03/27/20 17:00 82 24 99/54 (69) 100 03/27/20 17:00 24 Endotracheal Tube 50 03/27/20 17:00 101/53 03/27/20 16:30 82 24 102/57 (72) 100 03/27/20 16:00 97.2 82 24 100/56 (71) 100 03/27/20 16:00 Mechanical Ventilator Mechanical Ventilator 03/27/20 16:00 40 03/27/20 16:00 23 Endotracheal Tube 50 03/27/20 16:00 82/46 03/27/20 15:30 85 24 94/46 (62) 100 03/27/20 15:29 84 03/27/20 15:15 86 24 50 03/27/20 15:00 24 Endotracheal Tube 50 03/27/20 15:00 127/63 03/27/20 15:00 87 24 91/45 (60) 92 03/27/20 14:30 99.3 86 24 97/51 (66) 92 03/27/20 14:01 102/50 03/27/20 14:00 24 Endotracheal Tube 35 03/27/20 14:00 102/50 03/27/20 14:00 85 24 104/55 (71) 93 03/27/20 13:30 83 24 107/62 (77) 95 03/27/20 13:00 24 Endotracheal Tube 35 03/27/20 13:00 105/60 03/27/20 13:00 83 24 105/60 (75) 96 03/27/20 12:30 84 24 117/68 (84) 97 Height (Feet): 5 Height (Inches): 1.00 Weight (Pounds): 227 HEENT: other - orally intubated Respiratory/Chest: other - on Ventilator, FIO2=50% Cardiovascular: normal rate Abdomen: soft, non tender, other - NG & Rectal tubes Extremities: other - legs peace Neurologic/Psychiatric: other - sedated Laboratory Tests Test 03/27/20 17:12 03/28/20 05:09 Arterial Blood pH 7.380 (7.350-7.450) Arterial Blood Partial Pressure CO2 77.8 mmHg (35.0-45.0) *H Arterial Blood Partial Pressure O2 101.9 mmHg (75.0-100.0) H Arterial Blood HCO3 45.0 mmol/L (22.0-26.0) *H Arterial Blood Oxygen Saturation 96.4 % (95-100) Arterial Blood Base Excess 17.0 (-2-2) *H Joaquin Test Positive White Blood Count 22.5 K/UL (4.8-10.8) *H Red Blood Count 2.74 M/UL (4.20-5.40) L Hemoglobin 9.8 G/DL (12.0-16.0) L Hematocrit 30.6 % (37.0-47.0) L Mean Corpuscular Volume 112 FL (80-99) H Mean Corpuscular Hemoglobin 35.8 PG (27.0-31.0) H Mean Corpuscular Hemoglobin Concent 32.1 G/DL (32.0-36.0) Red Cell Distribution Width 22.4 % (11.6-14.8) H Platelet Count 140 K/UL (150-450) L Mean Platelet Volume 7.1 FL (6.5-10.1) Neutrophils (%) (Auto) % (45.0-75.0) Lymphocytes (%) (Auto) % (20.0-45.0) Monocytes (%) (Auto) % (1.0-10.0) Eosinophils (%) (Auto) % (0.0-3.0) Basophils (%) (Auto) % (0.0-2.0) Differential Total Cells Counted 100 Neutrophils % (Manual) 87 % (45-75) H Lymphocytes % (Manual) 5 % (20-45) L Monocytes % (Manual) 7 % (1-10) Eosinophils % (Manual) 1 % (0-3) Basophils % (Manual) 0 % (0-2) Band Neutrophils 0 % (0-8) Platelet Estimate Decreased L Platelet Morphology Normal Anisocytosis 2+ Macrocytosis 2+ Sodium Level 160 MMOL/L (136-145) H Potassium Level 4.3 MMOL/L (3.5-5.1) Chloride Level 117 MMOL/L (98-107) H Carbon Dioxide Level 44 MMOL/L (21-32) *H Blood Urea Nitrogen 38 mg/dL (7-18) H Creatinine 0.9 MG/DL (0.55-1.30) Estimat Glomerular Filtration Rate > 60 mL/min (>60) Glucose Level 446 MG/DL (74-106) #H Uric Acid 5.5 MG/DL (2.6-7.2) Calcium Level 9.4 MG/DL (8.5-10.1) Phosphorus Level 4.1 MG/DL (2.5-4.9) Magnesium Level 2.9 MG/DL (1.8-2.4) H Total Bilirubin 1.8 MG/DL (0.2-1.0) H Direct Bilirubin 1.1 MG/DL (0.0-0.3) H Gamma Glutamyl Transpeptidase 599 U/L (5-85) H Aspartate Amino Transf (AST/SGOT) 354 U/L (15-37) H Alanine Aminotransferase (ALT/SGPT) 296 U/L (12-78) H Alkaline Phosphatase 279 U/L (46-116) H Ammonia 75 umol/L (11-32) H Total Creatine Kinase 62 U/L (26-308) C-Reactive Protein, Quantitative 2.1 mg/dL (0.00-0.90) H Pro-B-Type Natriuretic Peptide 1806 pg/mL (0-125) H Total Protein 7.0 G/DL (6.4-8.2) Albumin 2.3 G/DL (3.4-5.0) L Globulin 4.7 g/dL Albumin/Globulin Ratio 0.5 (1.0-2.7) L Current Medications Medications (Trade) Dose Ordered Sig/Dolores Route PRN Reason Start Time Stop Time Status Last Admin Dose Admin Acetaminophen (Tylenol) 650 mg Q4H PRN ORAL Mild Pain (Pain Scale 1-3) 03/13/20 14:53 04/12/20 14:52 03/25/20 12:35 Acetaminophen (Tylenol) 650 mg Q4H PRN ORAL Temp >100 03/13/20 14:53 04/12/20 14:52 03/25/20 17:16 Chlorhexidine Gluconate (Lucretia-Hex 2%) 1 applic DAILY@2000 TOPIC 03/13/20 20:00 06/11/20 19:59 03/27/20 20:46 Dextrose 1,000 ml @ 100 mls/hr Q10H IV 03/27/20 08:00 04/26/20 07:59 03/28/20 02:44 Dextrose (Dextrose 50%) 25 ml Q30M PRN IV Hypoglycemia 03/28/20 06:45 06/26/20 06:44 Dextrose (Dextrose 50%) 50 ml Q30M PRN IV Hypoglycemia 03/28/20 06:45 06/26/20 06:44 Dopamine HCl/ Dextrose 250 ml @ 0 mls/hr Q24H IV 03/16/20 19:30 06/14/20 19:29 03/28/20 08:59 Enoxaparin Sodium (Lovenox) 100 mg EVERY 12 HOURS SUBQ 03/23/20 21:00 06/21/20 20:59 03/28/20 08:13 Fentanyl Citrate 1000 mcg/Sodium Chloride 100 ml @ 0 mls/hr Q24H IV 03/27/20 22:30 04/03/20 22:29 03/27/20 22:56 Hydralazine HCl (Apresoline) 10 mg Q6H PRN IV For High Blood Pressure 03/24/20 16:45 06/22/20 16:44 Insulin Aspart (NovoLOG) EVERY 4 HOURS SUBQ 03/26/20 09:00 06/24/20 08:59 03/28/20 08:57 Insulin Aspart (NovoLOG) 10 units EVERY 4 HOURS SUBQ 03/28/20 09:00 06/26/20 08:59 03/28/20 08:58 Insulin Detemir (Levemir) 40 units Q12HR SUBQ 03/27/20 21:00 06/20/20 18:59 03/28/20 08:56 Levofloxacin (Levaquin) 750 mg DAILY NG 03/28/20 09:00 04/04/20 08:59 03/28/20 08:12 Levothyroxine Sodium (Synthroid) 50 mcg DAILY IV 03/21/20 09:00 04/17/20 11:59 03/28/20 08:11 Lorazepam (Ativan 2mg/ml 1ml) 1 mg Q2H PRN IV For Anxiety 03/25/20 16:30 04/01/20 16:29 03/25/20 23:39 Methylprednisolone Sodium Succinate (Solu-MEDROL) 20 mg DAILY IVP 03/28/20 09:00 03/30/20 08:59 03/28/20 08:13 Midodrine (Pro-Amatine) 10 mg THREE TIMES A DAY NG 03/27/20 09:00 06/20/20 12:29 03/28/20 08:11 Non-Formulary Medication (Non-Formulary Med) 1 ea DAILY IV 03/18/20 09:00 04/17/20 08:59 UNV Norepinephrine Bitartrate 4 mg/ Dextrose 250 ml @ 0 mls/hr Q24H PRN IV For hypotension 03/25/20 16:30 04/24/20 16:29 Vasopressin 100 units/Sodium Chloride 100 ml @ 0 mls/hr Q24H PRN IV For hypotension 03/16/20 11:00 04/15/20 10:59 03/19/20 18:03 Jonathon Shah MD March 28, 2020 12:28
--- NOTE | 2020-03-28 21:23 | General Progress Note ---
Assessment/Plan Problem List: (1) Cellulitis ICD Codes: L03.90 - Cellulitis, unspecified SNOMED: [id number] Qualifiers: Qualified Codes: L03.119 - Cellulitis of unspecified part of limb Status: unchanged, deteriorating Assessment/Plan: hypernatrmia very dehydrated arf poor prognosis covid positvie sepsis metabolic conctraction cellulitis lower extremity worsening leukocytosis elev LFT shock liver sepsis anemia. h/h is stable cirrhosis elevated trop Subjective ROS Limited/Unobtainable: Yes Allergies: Coded Allergies: No Known Allergies (Unverified , 02/29/20) Objective Last 24 Hour Vital Signs Date Time Temp Pulse Resp B/P (MAP) Pulse Ox O2 Delivery O2 Flow Rate FiO2 03/28/20 20:15 86 24 122/64 (83) 100 03/28/20 20:00 50 03/28/20 20:00 98.0 87 24 120/64 (82) 100 03/28/20 20:00 Mechanical Ventilator Mechanical Ventilator 03/28/20 20:00 126/64 03/28/20 19:45 88 24 120/63 (82) 100 03/28/20 19:42 88 24 50 03/28/20 19:00 108/59 03/28/20 19:00 89 24 108/59 (75) 99 03/28/20 18:30 88 24 122/62 (82) 99 03/28/20 18:00 87 24 118/56 (76) 99 03/28/20 18:00 118/56 03/28/20 17:42 153/69 03/28/20 17:30 86 24 110/64 (79) 99 03/28/20 17:00 86 24 146/72 (96) 99 03/28/20 17:00 146/72 03/28/20 16:30 86 24 153/69 (97) 99 03/28/20 16:00 Mechanical Ventilator Mechanical Ventilator 03/28/20 16:00 50 03/28/20 16:00 88 03/28/20 16:00 24 166/73 Mechanical Ventilator 24 03/28/20 16:00 166/73 03/28/20 16:00 97.8 89 24 166/73 (104) 99 03/28/20 15:30 90 24 157/76 (103) 99 03/28/20 15:13 84 24 50 03/28/20 15:00 24 155/73 Mechanical Ventilator 50 03/28/20 15:00 155/73 03/28/20 15:00 90 24 155/73 (100) 99 03/28/20 14:30 91 24 140/70 (93) 99 03/28/20 14:00 24 136/69 Mechanical Ventilator 50 03/28/20 14:00 136/69 03/28/20 14:00 91 24 136/69 (91) 98 03/28/20 13:33 59/31 03/28/20 13:30 93 24 148/74 (98) 97 03/28/20 13:00 93 24 79/37 (51) 97 03/28/20 13:00 24 79/37 Mechanical Ventilator 50 03/28/20 13:00 79/37 03/28/20 12:30 98 24 94/42 (59) 95 03/28/20 12:00 24 129/59 Mechanical Ventilator 50 03/28/20 12:00 129/59 03/28/20 12:00 50 03/28/20 12:00 99.0 88 24 123/51 (75) 98 03/28/20 12:00 89 03/28/20 12:00 Mechanical Ventilator Mechanical Ventilator 03/28/20 11:30 86 24 133/68 (89) 99 03/28/20 11:00 24 132/62 Mechanical Ventilator 50 03/28/20 11:00 132/67 03/28/20 11:00 86 24 133/68 (89) 98 03/28/20 10:49 85 24 50 03/28/20 10:00 24 146/68 Mechanical Ventilator 50 03/28/20 10:00 146/68 03/28/20 10:00 88 24 72/34 (47) 97 03/28/20 09:00 88 24 99/48 (65) 100 03/28/20 09:00 24 99/48 Mechanical Ventilator 50 03/28/20 09:00 99/48 03/28/20 08:59 113/50 03/28/20 08:30 88 24 118/51 (73) 99 03/28/20 08:00 98.8 86 24 118/63 (81) 99 03/28/20 08:00 Mechanical Ventilator Mechanical Ventilator 03/28/20 08:00 24 118/63 Mechanical Ventilator 50 03/28/20 08:00 118/63 03/28/20 08:00 88 03/28/20 08:00 50 03/28/20 07:30 86 24 50 03/28/20 07:30 86 24 132/60 (84) 100 03/28/20 07:00 24 Mechanical Ventilator 50 03/28/20 07:00 129/58 03/28/20 07:00 86 24 129/58 (81) 100 03/28/20 06:00 24 Mechanical Ventilator 50 03/28/20 06:00 120/68 03/28/20 06:00 88 24 120/68 (85) 100 03/28/20 05:36 115/57 03/28/20 05:00 89 24 115/57 (76) 97 03/28/20 05:00 24 Mechanical Ventilator 50 03/28/20 05:00 115/57 03/28/20 04:00 86 03/28/20 04:00 98.0 86 24 125/53 (77) 98 03/28/20 04:00 24 Mechanical Ventilator 50 03/28/20 04:00 125/53 03/28/20 04:00 Mechanical Ventilator Mechanical Ventilator 03/28/20 04:00 50 03/28/20 03:32 86 24 50 03/28/20 03:00 24 Mechanical Ventilator 50 03/28/20 03:00 153/68 03/28/20 03:00 85 24 143/69 (93) 100 03/28/20 02:44 110/55 03/28/20 02:00 87 24 110/55 (73) 100 03/28/20 02:00 24 Mechanical Ventilator 50 03/28/20 02:00 110/55 03/28/20 01:00 86 24 115/60 (78) 100 03/28/20 01:00 24 Mechanical Ventilator 50 03/28/20 01:00 115/60 03/28/20 00:00 98.8 84 24 130/66 (87) 100 03/28/20 00:00 84 03/28/20 00:00 24 Mechanical Ventilator 50 03/28/20 00:00 24 Mechanical Ventilator 50 03/28/20 00:00 122/84 03/28/20 00:00 122/84 03/28/20 00:00 50 03/28/20 00:00 Mechanical Ventilator Mechanical Ventilator 03/27/20 23:51 84 24 50 03/27/20 23:00 85 24 117/62 (80) 100 03/27/20 23:00 24 Mechanical Ventilator 50 03/27/20 23:00 126/65 03/27/20 22:56 24 Mechanical Ventilator 50 03/27/20 22:30 110/56 03/27/20 22:15 102/50 03/27/20 22:00 24 Mechanical Ventilator 50 03/27/20 22:00 94/44 03/27/20 22:00 87 24 94/46 (62) 100 03/27/20 21:30 24 Mechanical Ventilator 50 03/27/20 21:30 94/47 Intake and Output 03/27/20 03/28/20 19:00 07:00 Intake Total 2215.070 ml 2926.69451 ml Output Total 1875 ml 715 ml Balance 340.070 ml 2211.86991 ml Free Water 200 ml 300 ml IV Total 1595.070 ml 2206.76820 ml Tube Feeding 420 ml 420 ml Output Urine Total 1725 ml 715 ml Stool Total 150 ml # Bowel Movements 100 Laboratory Tests 03/28/20 05:09: White Blood Count 22.5*H, Red Blood Count 2.74L, Hemoglobin 9.8L, Hematocrit 30.6L, Mean Corpuscular Volume 112H, Mean Corpuscular Hemoglobin 35.8H, Mean Corpuscular Hemoglobin Concent 32.1, Red Cell Distribution Width 22.4H, Platelet Count 140L, Mean Platelet Volume 7.1, Neutrophils (%) (Auto) , Lymphocytes (%) (Auto) , Monocytes (%) (Auto) , Eosinophils (%) (Auto) , Basophils (%) (Auto) , Differential Total Cells Counted 100, Neutrophils % ( Manual) 87H, Lymphocytes % (Manual) 5L, Monocytes % (Manual) 7, Eosinophils % ( Manual) 1, Basophils % (Manual) 0, Band Neutrophils 0, Platelet Estimate DecreasedL, Platelet Morphology Normal, Anisocytosis 2+, Macrocytosis 2+, Sodium Level 160H, Potassium Level 4.3, Chloride Level 117H, Carbon Dioxide Level 44*H, Blood Urea Nitrogen 38H, Creatinine 0.9, Estimat Glomerular Filtration Rate > 60, Glucose Level 446#H, Uric Acid 5.5, Calcium Level 9.4, Phosphorus Level 4.1, Magnesium Level 2.9H, Total Bilirubin 1.8H, Direct Bilirubin 1.1H, Gamma Glutamyl Transpeptidase 599H, Aspartate Amino Transf (AST/ SGOT) 354H, Alanine Aminotransferase (ALT/SGPT) 296H, Alkaline Phosphatase 279H , Ammonia 75H, Total Creatine Kinase 62, C-Reactive Protein, Quantitative 2.1H, Pro-B-Type Natriuretic Peptide 1806H, Total Protein 7.0, Albumin 2.3L, Globulin 4.7, Albumin/Globulin Ratio 0.5L Height (Feet): 5 Height (Inches): 1.00 Weight (Pounds): 227 Celso Moreno MD March 28, 2020 21:22
[2020-03-28] MEDS: Dyna-Hex 2% Top Sol 2oz TOPIC SCH (21:30)
[2020-03-28] MEDS: fentaNYL Citrate 1000 MCG in NS 100ml IV SCH (22:30)
--- NOTE | 2020-03-28 23:22 | Cardiology Progress Note ---
Assessment/Plan Assessment/Plan 1. Acute hypoxic hypercapnic respiratory failure, due to bilateral PNA caused by COVID-19 infection. 2. Septic shock on dopamine gtt and midodrine, keep MAP at 65 mmHg. Normal LV function with LVEF at 60%. 3. Hyponatremia, resolved. 4. Bilateral lower extremity cellulitis with Pseudomonas aeruginosa in culture. 5. Hypernatremia. Subjective Subjective Sinus rhythm at rate of 87. Objective Last 24 Hour Vital Signs Date Time Temp Pulse Resp B/P (MAP) Pulse Ox O2 Delivery O2 Flow Rate FiO2 03/28/20 23:11 87 24 50 03/28/20 22:30 24 106/56 Mechanical Ventilator 50 03/28/20 21:30 126/64 03/28/20 20:15 86 24 122/64 (83) 100 03/28/20 20:00 50 03/28/20 20:00 98.0 87 24 120/64 (82) 100 03/28/20 20:00 Mechanical Ventilator Mechanical Ventilator 03/28/20 20:00 126/64 03/28/20 19:45 88 24 120/63 (82) 100 03/28/20 19:42 88 24 50 03/28/20 19:00 108/59 03/28/20 19:00 89 24 108/59 (75) 99 03/28/20 18:30 88 24 122/62 (82) 99 03/28/20 18:00 87 24 118/56 (76) 99 03/28/20 18:00 118/56 03/28/20 17:42 153/69 03/28/20 17:30 86 24 110/64 (79) 99 03/28/20 17:00 86 24 146/72 (96) 99 03/28/20 17:00 146/72 03/28/20 16:30 86 24 153/69 (97) 99 03/28/20 16:00 Mechanical Ventilator Mechanical Ventilator 03/28/20 16:00 50 03/28/20 16:00 88 03/28/20 16:00 24 166/73 Mechanical Ventilator 24 03/28/20 16:00 166/73 03/28/20 16:00 97.8 89 24 166/73 (104) 99 03/28/20 15:30 90 24 157/76 (103) 99 03/28/20 15:13 84 24 50 03/28/20 15:00 24 155/73 Mechanical Ventilator 50 03/28/20 15:00 155/73 03/28/20 15:00 90 24 155/73 (100) 99 03/28/20 14:30 91 24 140/70 (93) 99 03/28/20 14:00 24 136/69 Mechanical Ventilator 50 03/28/20 14:00 136/69 03/28/20 14:00 91 24 136/69 (91) 98 03/28/20 13:33 59/31 03/28/20 13:30 93 24 148/74 (98) 97 03/28/20 13:00 93 24 79/37 (51) 97 03/28/20 13:00 24 79/37 Mechanical Ventilator 50 03/28/20 13:00 79/37 03/28/20 12:30 98 24 94/42 (59) 95 03/28/20 12:00 24 129/59 Mechanical Ventilator 50 03/28/20 12:00 129/59 03/28/20 12:00 50 03/28/20 12:00 99.0 88 24 123/51 (75) 98 03/28/20 12:00 89 03/28/20 12:00 Mechanical Ventilator Mechanical Ventilator 03/28/20 11:30 86 24 133/68 (89) 99 03/28/20 11:00 24 132/62 Mechanical Ventilator 50 03/28/20 11:00 132/67 03/28/20 11:00 86 24 133/68 (89) 98 03/28/20 10:49 85 24 50 03/28/20 10:00 24 146/68 Mechanical Ventilator 50 03/28/20 10:00 146/68 03/28/20 10:00 88 24 72/34 (47) 97 03/28/20 09:00 88 24 99/48 (65) 100 03/28/20 09:00 24 99/48 Mechanical Ventilator 50 03/28/20 09:00 99/48 03/28/20 08:59 113/50 03/28/20 08:30 88 24 118/51 (73) 99 03/28/20 08:00 98.8 86 24 118/63 (81) 99 03/28/20 08:00 Mechanical Ventilator Mechanical Ventilator 03/28/20 08:00 24 118/63 Mechanical Ventilator 50 03/28/20 08:00 118/63 03/28/20 08:00 88 03/28/20 08:00 50 03/28/20 07:30 86 24 50 03/28/20 07:30 86 24 132/60 (84) 100 03/28/20 07:00 24 Mechanical Ventilator 50 03/28/20 07:00 129/58 03/28/20 07:00 86 24 129/58 (81) 100 03/28/20 06:00 24 Mechanical Ventilator 50 03/28/20 06:00 120/68 03/28/20 06:00 88 24 120/68 (85) 100 03/28/20 05:36 115/57 03/28/20 05:00 89 24 115/57 (76) 97 03/28/20 05:00 24 Mechanical Ventilator 50 03/28/20 05:00 115/57 03/28/20 04:00 86 03/28/20 04:00 98.0 86 24 125/53 (77) 98 03/28/20 04:00 24 Mechanical Ventilator 50 03/28/20 04:00 125/53 03/28/20 04:00 Mechanical Ventilator Mechanical Ventilator 03/28/20 04:00 50 03/28/20 03:32 86 24 50 03/28/20 03:00 24 Mechanical Ventilator 50 03/28/20 03:00 153/68 03/28/20 03:00 85 24 143/69 (93) 100 03/28/20 02:44 110/55 03/28/20 02:00 87 24 110/55 (73) 100 03/28/20 02:00 24 Mechanical Ventilator 50 03/28/20 02:00 110/55 03/28/20 01:00 86 24 115/60 (78) 100 03/28/20 01:00 24 Mechanical Ventilator 50 03/28/20 01:00 115/60 03/28/20 00:00 98.8 84 24 130/66 (87) 100 03/28/20 00:00 84 03/28/20 00:00 24 Mechanical Ventilator 50 03/28/20 00:00 24 Mechanical Ventilator 50 03/28/20 00:00 122/84 03/28/20 00:00 122/84 03/28/20 00:00 50 03/28/20 00:00 Mechanical Ventilator Mechanical Ventilator 03/27/20 23:51 84 24 50 Intake and Output 03/27/20 03/28/20 19:00 07:00 Intake Total 2215.070 ml 2926.80217 ml Output Total 1875 ml 715 ml Balance 340.070 ml 2211.51505 ml Free Water 200 ml 300 ml IV Total 1595.070 ml 2206.47293 ml Tube Feeding 420 ml 420 ml Output Urine Total 1725 ml 715 ml Stool Total 150 ml # Bowel Movements 100 2D Echo: EF 60%, Mild LVH, Mild MR. RVSP 44 mmHg, Normal LVD Fxn Laboratory Tests Test 03/28/20 05:09 White Blood Count 22.5 K/UL (4.8-10.8) *H Red Blood Count 2.74 M/UL (4.20-5.40) L Hemoglobin 9.8 G/DL (12.0-16.0) L Hematocrit 30.6 % (37.0-47.0) L Mean Corpuscular Volume 112 FL (80-99) H Mean Corpuscular Hemoglobin 35.8 PG (27.0-31.0) H Mean Corpuscular Hemoglobin Concent 32.1 G/DL (32.0-36.0) Red Cell Distribution Width 22.4 % (11.6-14.8) H Platelet Count 140 K/UL (150-450) L Mean Platelet Volume 7.1 FL (6.5-10.1) Neutrophils (%) (Auto) % (45.0-75.0) Lymphocytes (%) (Auto) % (20.0-45.0) Monocytes (%) (Auto) % (1.0-10.0) Eosinophils (%) (Auto) % (0.0-3.0) Basophils (%) (Auto) % (0.0-2.0) Differential Total Cells Counted 100 Neutrophils % (Manual) 87 % (45-75) H Lymphocytes % (Manual) 5 % (20-45) L Monocytes % (Manual) 7 % (1-10) Eosinophils % (Manual) 1 % (0-3) Basophils % (Manual) 0 % (0-2) Band Neutrophils 0 % (0-8) Platelet Estimate Decreased L Platelet Morphology Normal Anisocytosis 2+ Macrocytosis 2+ Sodium Level 160 MMOL/L (136-145) H Potassium Level 4.3 MMOL/L (3.5-5.1) Chloride Level 117 MMOL/L (98-107) H Carbon Dioxide Level 44 MMOL/L (21-32) *H Blood Urea Nitrogen 38 mg/dL (7-18) H Creatinine 0.9 MG/DL (0.55-1.30) Estimat Glomerular Filtration Rate > 60 mL/min (>60) Glucose Level 446 MG/DL (74-106) #H Uric Acid 5.5 MG/DL (2.6-7.2) Calcium Level 9.4 MG/DL (8.5-10.1) Phosphorus Level 4.1 MG/DL (2.5-4.9) Magnesium Level 2.9 MG/DL (1.8-2.4) H Total Bilirubin 1.8 MG/DL (0.2-1.0) H Direct Bilirubin 1.1 MG/DL (0.0-0.3) H Gamma Glutamyl Transpeptidase 599 U/L (5-85) H Aspartate Amino Transf (AST/SGOT) 354 U/L (15-37) H Alanine Aminotransferase (ALT/SGPT) 296 U/L (12-78) H Alkaline Phosphatase 279 U/L (46-116) H Ammonia 75 umol/L (11-32) H Total Creatine Kinase 62 U/L (26-308) C-Reactive Protein, Quantitative 2.1 mg/dL (0.00-0.90) H Pro-B-Type Natriuretic Peptide 1806 pg/mL (0-125) H Total Protein 7.0 G/DL (6.4-8.2) Albumin 2.3 G/DL (3.4-5.0) L Globulin 4.7 g/dL Albumin/Globulin Ratio 0.5 (1.0-2.7) L Objective HEENT: Atraumatic and normocephalic. Anicteric. Intubated. NECK: JVP cannot be assessed. No carotid bruit. + ETT. CARDIOVASCULAR: Normal S1, S2. Regular rate and rhythm. No murmurs, gallops, or rubs. PMI is at fourth intercostal space at left midclavicular line. LUNGS: Bibasilar crackles. ABDOMEN: Soft, nontender, and nondistended. No hepatosplenomegaly. Positive bowel sounds. EXTREMITIES: A 2+ edema bilaterally associated with erythema with blistering and crust formation of both feet. Berto Gonzalez MD March 28, 2020 23:22
--- NOTE | 2020-03-28 23:29 | Pulmonolgy Critical Care Note ---
Critical Care - Asmt/Plan Assessment/Plan: Pulmonary CCM Progress Note HPI Patient is a 59 year old woman with significant obesity, admitted with bilateral lower extremity cellulitis, had complained of increased swelling and redness to both of her feet and legs Had elevated BNP on admission, persistent edema since admission, worsening hypoxia, LE DVT (right) negative for DVT. Patient had previous hospitalizations for cellulitis, PMH Hypothyroidism, Obesity, Cirrhosis, Anemia, Anxiety, Cellulitis COVID 19 positive, Pneumonia VQ no significant perfusion abnormality, prev LE dupplex negative High D Dimer level, on Lovenox treatment dose Being diuresed, slightly inproving infiltrates on CXR, on ACVC, did not tolerating Proning Some improvement in PaO2/FIO2, VC settings adjusted, P 10, FIO2 40-50%, has increased PaCO2 Now Hypernatremic - receiving free water, renal following Hypothyroidism Elevted glucose Awaiting Remdasovir, [facility] - Remdesavir requested for when available, [facility] - not available as yet Received IL6 inhibitor inititial dose (4mg/Kg - all that was available), subsequent dose pending, d/w Pharmacy, on steroids - being weaned 30 mg bid On therapeutic dose Lovenox - incr D dimer Seen earlier Allergies: No Known Allergies Past Medical History: Obesity, Cirrhosis, Anemia, Anxiety, Cellulitis, Hypothyroidism All Other Systems: negative except mentioned in HPI Physical Exam Vital Signs Noted General Appearance: Obese, Sedated,intubated Head: normocephalic, atraumatic Eyes: bilateral eye PERRL, bilateral eye EOMI ENT: EOM grossly intact, moist MM, no LN Respiratory: Bilateral crackles, bilateral rhonchi Cardiovascular: regular rate, rhythm, HS1, HS2 RRR Gastrointestinal: Obese, soft non tender, ND Musculoskeletal: Mild to moderate edema and erythema bilateral lower extremity , patient also has crusting on both feet, Neurologic: sedated, no focalsigns Impression: Covid Pneumonia, s/p IL6 inhibitor, sp Hydroxychloroquine, Ivermectin Improving infiltrates and hypoxia, elevated PCO2 Increased WCC - possible secondary to steroids Bilateral Lower Extremity Cellulitis Elevated NPA, severe bilateral edema - improving Cirrhosis, elevated transaminases/ammonia Splenomegaly Anemia Anxiety Hyponatremia Hypothyroidism Plan IV Antibiotics per ID On trial of steroids - currently 30 mg bid, s/p IL6 inhibitor Diurese as tolerated, note persistently elevated BNP Surgery following for wounds Hematology following for anemia, observing for Neutropenia/thrombocytopenia Diuresed previously Renal following for hypernatremia Endocrine following for Hypothyroidism, on ISS Monitor labs Bronchodilators PPX - Lovenox - therapeutic dose AC VC Proning PRN Supplement electrolytes PRN Albuterol PRN 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 Previously d/w Patients daughter Tri - discussed grave prognosis, suggested DNAR - will consider [facility] - Remdesavir ordered, awaiting supply, awaiting next dose on IL6 inhibitor once supply available Labs Noted Chest X-Ray: Cardiomegaly, left lower lobe atelectasis versus effusion, worsening infiltrates/congestion Subjective ROS Limited/Unobtainable: No Constitutional: Reports: no symptoms Gastrointestinal/Abdominal: Reports: no symptoms Musculoskeletal: Reports: other - SOB Allergies: Coded Allergies: No Known Allergies (Unverified , 02/29/20) ICU time 50 minutes Critical Care - Objective Last 24 Hour Vital Signs Date Time Temp Pulse Resp B/P (MAP) Pulse Ox O2 Delivery O2 Flow Rate FiO2 03/28/20 23:11 87 24 50 03/28/20 22:30 24 106/56 Mechanical Ventilator 50 03/28/20 21:30 126/64 03/28/20 20:15 86 24 122/64 (83) 100 03/28/20 20:00 50 03/28/20 20:00 98.0 87 24 120/64 (82) 100 03/28/20 20:00 Mechanical Ventilator Mechanical Ventilator 03/28/20 20:00 126/64 03/28/20 19:45 88 24 120/63 (82) 100 03/28/20 19:42 88 24 50 03/28/20 19:00 108/59 03/28/20 19:00 89 24 108/59 (75) 99 03/28/20 18:30 88 24 122/62 (82) 99 03/28/20 18:00 87 24 118/56 (76) 99 03/28/20 18:00 118/56 03/28/20 17:42 153/69 03/28/20 17:30 86 24 110/64 (79) 99 03/28/20 17:00 86 24 146/72 (96) 99 03/28/20 17:00 146/72 03/28/20 16:30 86 24 153/69 (97) 99 03/28/20 16:00 Mechanical Ventilator Mechanical Ventilator 03/28/20 16:00 50 03/28/20 16:00 88 03/28/20 16:00 24 166/73 Mechanical Ventilator 24 03/28/20 16:00 166/73 03/28/20 16:00 97.8 89 24 166/73 (104) 99 03/28/20 15:30 90 24 157/76 (103) 99 03/28/20 15:13 84 24 50 03/28/20 15:00 24 155/73 Mechanical Ventilator 50 03/28/20 15:00 155/73 03/28/20 15:00 90 24 155/73 (100) 99 03/28/20 14:30 91 24 140/70 (93) 99 03/28/20 14:00 24 136/69 Mechanical Ventilator 50 03/28/20 14:00 136/69 03/28/20 14:00 91 24 136/69 (91) 98 03/28/20 13:33 59/31 03/28/20 13:30 93 24 148/74 (98) 97 03/28/20 13:00 93 24 79/37 (51) 97 03/28/20 13:00 24 79/37 Mechanical Ventilator 50 03/28/20 13:00 79/37 03/28/20 12:30 98 24 94/42 (59) 95 03/28/20 12:00 24 129/59 Mechanical Ventilator 50 03/28/20 12:00 129/59 03/28/20 12:00 50 03/28/20 12:00 99.0 88 24 123/51 (75) 98 03/28/20 12:00 89 03/28/20 12:00 Mechanical Ventilator Mechanical Ventilator 03/28/20 11:30 86 24 133/68 (89) 99 03/28/20 11:00 24 132/62 Mechanical Ventilator 50 03/28/20 11:00 132/67 03/28/20 11:00 86 24 133/68 (89) 98 03/28/20 10:49 85 24 50 03/28/20 10:00 24 146/68 Mechanical Ventilator 50 03/28/20 10:00 146/68 03/28/20 10:00 88 24 72/34 (47) 97 03/28/20 09:00 88 24 99/48 (65) 100 03/28/20 09:00 24 99/48 Mechanical Ventilator 50 03/28/20 09:00 99/48 03/28/20 08:59 113/50 03/28/20 08:30 88 24 118/51 (73) 99 03/28/20 08:00 98.8 86 24 118/63 (81) 99 03/28/20 08:00 Mechanical Ventilator Mechanical Ventilator 03/28/20 08:00 24 118/63 Mechanical Ventilator 50 03/28/20 08:00 118/63 03/28/20 08:00 88 03/28/20 08:00 50 03/28/20 07:30 86 24 50 03/28/20 07:30 86 24 132/60 (84) 100 03/28/20 07:00 24 Mechanical Ventilator 50 03/28/20 07:00 129/58 03/28/20 07:00 86 24 129/58 (81) 100 03/28/20 06:00 24 Mechanical Ventilator 50 03/28/20 06:00 120/68 03/28/20 06:00 88 24 120/68 (85) 100 03/28/20 05:36 115/57 03/28/20 05:00 89 24 115/57 (76) 97 03/28/20 05:00 24 Mechanical Ventilator 50 03/28/20 05:00 115/57 03/28/20 04:00 86 03/28/20 04:00 98.0 86 24 125/53 (77) 98 03/28/20 04:00 24 Mechanical Ventilator 50 03/28/20 04:00 125/53 03/28/20 04:00 Mechanical Ventilator Mechanical Ventilator 03/28/20 04:00 50 03/28/20 03:32 86 24 50 03/28/20 03:00 24 Mechanical Ventilator 50 03/28/20 03:00 153/68 03/28/20 03:00 85 24 143/69 (93) 100 03/28/20 02:44 110/55 03/28/20 02:00 87 24 110/55 (73) 100 03/28/20 02:00 24 Mechanical Ventilator 50 03/28/20 02:00 110/55 03/28/20 01:00 86 24 115/60 (78) 100 03/28/20 01:00 24 Mechanical Ventilator 50 03/28/20 01:00 115/60 03/28/20 00:00 98.8 84 24 130/66 (87) 100 03/28/20 00:00 84 03/28/20 00:00 24 Mechanical Ventilator 50 03/28/20 00:00 24 Mechanical Ventilator 50 03/28/20 00:00 122/84 03/28/20 00:00 122/84 03/28/20 00:00 50 03/28/20 00:00 Mechanical Ventilator Mechanical Ventilator 03/27/20 23:51 84 24 50 Accucheck: 386 Critical Care - Subjective ROS Limited/Unobtainable: No Condition: critical FI02: 50 Vent Support Breath Rate: 24 Vent Support Mode: AC Vent Tidal Volume: 400 Sputum Amount: Scant PEEP: 10.0 PIP: 28 Tube Feeding Amount: 50 I&O: Intake and Output 03/27/20 03/28/20 19:00 07:00 Intake Total 2215.070 ml 2926.66127 ml Output Total 1875 ml 715 ml Balance 340.070 ml 2211.55200 ml Free Water 200 ml 300 ml IV Total 1595.070 ml 2206.89087 ml Tube Feeding 420 ml 420 ml Output Urine Total 1725 ml 715 ml Stool Total 150 ml # Bowel Movements 100 ET-Tube: 7.5 ET Position: 21 Doron Carrillo MD March 28, 2020 23:29
[2020-03-29] VITALS (75 sets, daily range): BP systolic 76–149; BP diastolic 34–75
[2020-03-29] MEDS: NovoLOG Insulin Flexpen SUBQ SCH ×12 (00:39→21:21)
[2020-03-29] MEDS: DOPamine 400mg/250ml 250 ML IV SCH ×7 (01:35→21:29)
[2020-03-29 05:28] LABS: HEMATOCRIT 31.7 % (37.0-47.0); HEMOGLOBIN 10.1 G/DL (12.0-16.0); MEAN CORPUSCULAR VOLUME 111 FL (80-99); PLATELET COUNT 135 K/UL (150-450); RED BLOOD COUNT 2.85 M/UL (4.20-5.40); RED CELL DISTRIBUTION WIDTH 22.1 % (11.6-14.8)
[2020-03-29 05:43] LABS: WHITE BLOOD COUNT 26.4 K/UL (4.8-10.8)
[2020-03-29 06:04] LABS: ALANINE AMINOTRANSFERASE 269 U/L (12-78); ALBUMIN 2.2 G/DL (3.4-5.0); ALBUMIN/GLOBULIN RATIO 0.5 (1.0-2.7); ALKALINE PHOSPHATASE 341 U/L (46-116); ANION GAP 0 mmol/L (5-15); ASPARTATE AMINO TRANSFERASE 356 U/L (15-37); BILIRUBIN,TOTAL 1.8 MG/DL (0.2-1.0); BLOOD UREA NITROGEN 48 mg/dL (7-18); CALCIUM 9.6 MG/DL (8.5-10.1); CHLORIDE 110 MMOL/L (98-107); CREATININE 0.9 MG/DL (0.55-1.30); POTASSIUM 4.4 MMOL/L (3.5-5.1); SODIUM 154 MMOL/L (136-145)
[2020-03-29 06:08] LABS: CARBON DIOXIDE 43 MMOL/L (21-32)
[2020-03-29 06:09] LABS: BILIRUBIN,DIRECT 1.1 MG/DL (0.0-0.3)
[2020-03-29 06:28] LABS: PHOSPHORUS 3.4 MG/DL (2.5-4.9)
[2020-03-29] MEDS: Levofloxacin 750mg tab NG SCH (08:08)
[2020-03-29] MEDS: Solu-MEDROL 40mg Inj IVP SCH (08:08)
[2020-03-29] MEDS: Midodrine 10mg tab NG SCH ×3 (08:08→17:42)
[2020-03-29] MEDS: Enoxaparin 100mg Inj SUBQ SCH (08:09)
--- NOTE | 2020-03-29 08:14 | General Progress Note ---
Assessment/Plan Problem List: (1) Hypothyroid ICD Codes: E03.9 - Hypothyroidism, unspecified SNOMED: 33291531 (2) COVID-19 ICD Codes: U07.1 - COVID-19 SNOMED: 766154297 (3) Respiratory failure with hypoxia ICD Codes: J96.91 - Respiratory failure, unspecified with hypoxia SNOMED: 13236462565652103 Qualifiers: Qualified Codes: J96.01 - Acute respiratory failure with hypoxia (4) Cellulitis ICD Codes: L03.90 - Cellulitis, unspecified SNOMED: 780144709 Qualifiers: Qualified Codes: L03.119 - Cellulitis of unspecified part of limb (5) Hyperglycemia ICD Codes: R73.9 - Hyperglycemia, unspecified SNOMED: 33956128 Status: unchanged, deteriorating Assessment/Plan: continue Levemir 50 units bid - increased from 40 units bid increase Novolog 20 to 28 units every 4 hours in addition to sliding scale continue Novolog sliding scale every 4 hours high dose continue Levothyroxine 50 mcg IV daily Subjective ROS Limited/Unobtainable: Yes Allergies: Coded Allergies: No Known Allergies (Unverified , 02/29/20) Subjective events noted - interval notes reviewed intubated in ICU glucose values still elevated despite aggressive insulin dose adjustment Item Value Date Time Bedside Blood Glucose 322 mg/dl H 03/29/20 0532 Bedside Blood Glucose 381 mg/dl H 03/29/20 0100 Bedside Blood Glucose 386 mg/dl H 03/28/20 2130 Bedside Blood Glucose 411 mg/dl H 03/28/20 1832 Bedside Blood Glucose 423 mg/dl H 03/28/20 1351 Bedside Blood Glucose 359 mg/dl H 03/28/20 0923 Objective Last 24 Hour Vital Signs Date Time Temp Pulse Resp B/P (MAP) Pulse Ox O2 Delivery O2 Flow Rate FiO2 03/29/20 08:00 99.1 88 24 86/47 (60) 94 03/29/20 07:30 92 24 107/48 (67) 94 03/29/20 07:07 92 24 50 03/29/20 07:00 86 24 89/47 (61) 88 03/29/20 07:00 102/54 03/29/20 06:45 82 24 102/54 (70) 94 03/29/20 06:30 82 24 105/52 (69) 95 03/29/20 06:15 82 24 107/54 (71) 95 03/29/20 06:00 107/54 03/29/20 06:00 82 24 111/60 (77) 95 03/29/20 05:45 83 24 110/57 (74) 95 03/29/20 05:30 131/59 03/29/20 05:30 84 24 131/59 (83) 96 03/29/20 05:15 83 24 96/50 (65) 96 03/29/20 05:13 127/64 03/29/20 05:00 86 24 127/64 (85) 95 03/29/20 05:00 96/50 03/29/20 04:45 87 24 116/65 (82) 94 03/29/20 04:30 88 24 112/54 (73) 93 03/29/20 04:15 89 24 112/55 (74) 93 03/29/20 04:00 117/55 03/29/20 04:00 50 03/29/20 04:00 98.5 88 24 117/55 (75) 94 03/29/20 04:00 Mechanical Ventilator Mechanical Ventilator 03/29/20 03:55 88 24 50 03/29/20 03:45 87 24 120/60 (80) 94 03/29/20 03:30 86 24 126/64 (84) 94 03/29/20 03:20 84 24 112/55 (74) 94 03/29/20 03:17 83 25 76/60 (65) 95 03/29/20 03:15 76/55 03/29/20 03:15 83 26 89/43 (58) 100 03/29/20 03:01 81 03/29/20 03:00 101/50 03/29/20 03:00 82 24 101/50 (67) 99 03/29/20 02:45 81 24 99/54 (69) 100 03/29/20 02:30 81 24 110/47 (68) 100 03/29/20 02:15 81 24 109/62 (78) 100 03/29/20 02:00 110/57 03/29/20 02:00 81 24 110/57 (74) 100 03/29/20 01:45 82 24 116/56 (76) 100 03/29/20 01:35 113/54 03/29/20 01:30 82 24 113/54 (73) 100 03/29/20 01:15 83 24 111/53 (72) 100 03/29/20 01:00 83 24 108/57 (74) 100 03/29/20 01:00 111/53 03/29/20 00:45 84 24 108/54 (72) 100 03/29/20 00:30 85 24 115/56 (75) 100 03/29/20 00:15 85 24 106/54 (71) 99 03/29/20 00:00 98.3 86 24 103/51 (68) 99 03/29/20 00:00 106/54 03/29/20 00:00 Mechanical Ventilator Mechanical Ventilator 03/29/20 00:00 50 03/28/20 23:45 87 24 100/54 (69) 98 03/28/20 23:37 88 24 91/49 (63) 98 03/28/20 23:30 88 24 91/47 (62) 98 03/28/20 23:19 88 03/28/20 23:15 88 24 94/53 (67) 99 03/28/20 23:11 87 24 50 03/28/20 23:00 87 24 106/56 (73) 99 03/28/20 23:00 94/53 03/28/20 22:45 86 24 111/61 (78) 99 03/28/20 22:30 24 106/56 Mechanical Ventilator 50 03/28/20 22:30 85 24 113/60 (77) 99 03/28/20 22:15 85 24 124/63 (83) 99 03/28/20 22:00 124/63 03/28/20 22:00 85 24 126/64 (84) 98 03/28/20 21:51 89 24 81/47 (58) 95 03/28/20 21:45 90 24 66/47 (53) 95 03/28/20 21:30 84 24 129/53 (78) 99 03/28/20 21:30 126/64 03/28/20 21:15 85 24 132/64 (86) 100 03/28/20 21:00 85 24 132/59 (83) 100 03/28/20 21:00 132/64 03/28/20 20:45 85 24 128/64 (85) 100 03/28/20 20:30 85 24 122/67 (85) 100 03/28/20 20:15 86 24 122/64 (83) 100 03/28/20 20:00 50 03/28/20 20:00 98.0 87 24 120/64 (82) 100 03/28/20 20:00 Mechanical Ventilator Mechanical Ventilator 03/28/20 20:00 126/64 03/28/20 19:45 88 24 120/63 (82) 100 03/28/20 19:42 88 24 50 03/28/20 19:29 89 03/28/20 19:00 108/59 03/28/20 19:00 89 24 108/59 (75) 99 03/28/20 18:30 88 24 122/62 (82) 99 03/28/20 18:00 87 24 118/56 (76) 99 03/28/20 18:00 118/56 03/28/20 17:42 153/69 03/28/20 17:30 86 24 110/64 (79) 99 03/28/20 17:00 86 24 146/72 (96) 99 03/28/20 17:00 146/72 03/28/20 16:30 86 24 153/69 (97) 99 03/28/20 16:00 Mechanical Ventilator Mechanical Ventilator 03/28/20 16:00 50 03/28/20 16:00 88 03/28/20 16:00 24 166/73 Mechanical Ventilator 24 03/28/20 16:00 166/73 03/28/20 16:00 97.8 89 24 166/73 (104) 99 03/28/20 15:30 90 24 157/76 (103) 99 03/28/20 15:13 84 24 50 03/28/20 15:00 24 155/73 Mechanical Ventilator 50 03/28/20 15:00 155/73 03/28/20 15:00 90 24 155/73 (100) 99 03/28/20 14:30 91 24 140/70 (93) 99 03/28/20 14:00 24 136/69 Mechanical Ventilator 50 03/28/20 14:00 136/69 03/28/20 14:00 91 24 136/69 (91) 98 03/28/20 13:33 59/31 03/28/20 13:30 93 24 148/74 (98) 97 5/12/20 13:00 93 24 79/37 (51) 97 03/28/20 13:00 24 79/37 Mechanical Ventilator 50 03/28/20 13:00 79/37 03/28/20 12:30 98 24 94/42 (59) 95 03/28/20 12:00 24 129/59 Mechanical Ventilator 50 03/28/20 12:00 129/59 03/28/20 12:00 50 03/28/20 12:00 99.0 88 24 123/51 (75) 98 03/28/20 12:00 89 03/28/20 12:00 Mechanical Ventilator Mechanical Ventilator 03/28/20 11:30 86 24 133/68 (89) 99 03/28/20 11:00 24 132/62 Mechanical Ventilator 50 03/28/20 11:00 132/67 03/28/20 11:00 86 24 133/68 (89) 98 03/28/20 10:49 85 24 50 03/28/20 10:00 24 146/68 Mechanical Ventilator 50 03/28/20 10:00 146/68 03/28/20 10:00 88 24 72/34 (47) 97 03/28/20 09:00 88 24 99/48 (65) 100 03/28/20 09:00 24 99/48 Mechanical Ventilator 50 03/28/20 09:00 99/48 03/28/20 08:59 113/50 03/28/20 08:30 88 24 118/51 (73) 99 Intake and Output 03/28/20 03/29/20 19:00 07:00 Intake Total 2871.799 ml 2581.41999 ml Output Total 1180 ml 725 ml Balance 1691.799 ml 1856.97770 ml Free Water 300 ml 150 ml IV Total 1821.799 ml 1831.47632 ml Tube Feeding 570 ml 600 ml Other 180 ml Output Urine Total 1180 ml 675 ml Stool Total 50 ml Laboratory Tests 03/29/20 04:05: White Blood Count 26.4*H, Red Blood Count 2.85L, Hemoglobin 10.1L, Hematocrit 31.7L, Mean Corpuscular Volume 111H, Mean Corpuscular Hemoglobin 35.3H, Mean Corpuscular Hemoglobin Concent 31.7L, Red Cell Distribution Width 22.1H, Platelet Count 135L, Mean Platelet Volume 7.5, Neutrophils (%) (Auto) , Lymphocytes (%) (Auto) , Monocytes (%) (Auto) , Eosinophils (%) (Auto) , Basophils (%) (Auto) , Neutrophils % (Manual) [Pending], Lymphocytes % (Manual) [Pending], Platelet Estimate [Pending], Platelet Morphology [Pending], Sodium Level 154H, Potassium Level 4.4, Chloride Level 110H, Carbon Dioxide Level 43*H , Anion Gap 0L, Blood Urea Nitrogen 48H, Creatinine 0.9, Estimat Glomerular Filtration Rate > 60, Glucose Level 402H, Uric Acid 5.9, Calcium Level 9.6, Phosphorus Level 3.4, Magnesium Level 2.7H, Total Bilirubin 1.8H, Direct Bilirubin 1.1H, Aspartate Amino Transf (AST/SGOT) 356H, Alanine Aminotransferase (ALT/SGPT) 269H, Alkaline Phosphatase 341H, Total Protein 6.6, Albumin 2.2L, Globulin 4.4, Albumin/Globulin Ratio 0.5L Height (Feet): 5 Height (Inches): 1.00 Weight (Pounds): 225 General Appearance: severe distress, other - intubated EENT: other Cardiovascular: tachycardia Respiratory/Chest: decreased breath sounds Abdomen: normal bowel sounds Objective Current Medications Medications (Trade) Dose Ordered Sig/Dolores Route PRN Reason Start Time Stop Time Status Last Admin Dose Admin Acetaminophen (Tylenol) 650 mg Q4H PRN ORAL Mild Pain (Pain Scale 1-3) 03/13/20 14:53 04/12/20 14:52 03/25/20 12:35 Acetaminophen (Tylenol) 650 mg Q4H PRN ORAL Temp >100 03/13/20 14:53 04/12/20 14:52 03/25/20 17:16 Chlorhexidine Gluconate (Lucretia-Hex 2%) 1 applic DAILY@2000 TOPIC 03/13/20 20:00 06/11/20 19:59 03/28/20 21:30 Dextrose 1,000 ml @ 100 mls/hr Q10H IV 03/27/20 08:00 04/26/20 07:59 03/28/20 23:24 Dextrose (Dextrose 50%) 25 ml Q30M PRN IV Hypoglycemia 03/28/20 06:45 06/26/20 06:44 Dextrose (Dextrose 50%) 50 ml Q30M PRN IV Hypoglycemia 03/28/20 06:45 06/26/20 06:44 Dopamine HCl/ Dextrose 250 ml @ 0 mls/hr Q24H IV 03/16/20 19:30 06/14/20 19:29 03/29/20 05:13 Enoxaparin Sodium (Lovenox) 100 mg EVERY 12 HOURS SUBQ 03/23/20 21:00 06/21/20 20:59 03/28/20 21:30 Fentanyl Citrate 1000 mcg/Sodium Chloride 100 ml @ 0 mls/hr Q24H IV 03/27/20 22:30 04/03/20 22:29 03/27/20 22:56 Hydralazine HCl (Apresoline) 10 mg Q6H PRN IV For High Blood Pressure 03/24/20 16:45 06/22/20 16:44 Insulin Aspart (NovoLOG) EVERY 4 HOURS SUBQ 03/26/20 09:00 06/24/20 08:59 03/29/20 05:32 Insulin Aspart (NovoLOG) 20 units EVERY 4 HOURS SUBQ 03/28/20 21:00 06/26/20 08:59 03/29/20 05:31 Insulin Detemir (Levemir) 50 units Q12HR SUBQ 03/29/20 09:00 06/20/20 18:59 UNV Levofloxacin (Levaquin) 750 mg DAILY NG 03/28/20 09:00 04/04/20 08:59 03/28/20 08:12 Levothyroxine Sodium (Synthroid) 50 mcg DAILY IV 03/21/20 09:00 04/17/20 11:59 03/28/20 08:11 Lorazepam (Ativan 2mg/ml 1ml) 1 mg Q2H PRN IV For Anxiety 03/25/20 16:30 04/01/20 16:29 03/25/20 23:39 Methylprednisolone Sodium Succinate (Solu-MEDROL) 20 mg DAILY IVP 03/28/20 09:00 03/30/20 08:59 03/28/20 08:13 Midodrine (Pro-Amatine) 10 mg THREE TIMES A DAY NG 03/27/20 09:00 06/20/20 12:29 03/28/20 17:44 Non-Formulary Medication (Non-Formulary Med) 1 ea DAILY IV 03/18/20 09:00 04/17/20 08:59 UNV Norepinephrine Bitartrate 4 mg/ Dextrose 250 ml @ 0 mls/hr Q24H PRN IV For hypotension 03/25/20 16:30 04/24/20 16:29 Vasopressin 100 units/Sodium Chloride 100 ml @ 0 mls/hr Q24H PRN IV For hypotension 03/16/20 11:00 04/15/20 10:59 03/19/20 18:03 Johan Christopher MD March 29, 2020 08:14
[2020-03-29] MEDS: Levemir Flexpen SUBQ SCH ×2 (08:43→21:20)
--- NOTE | 2020-03-29 09:41 | General Progress Note ---
Assessment/Plan Status: unchanged, deteriorating Assessment/Plan: macrocytic anemia elevated LFTS cirrhosis cellulitis elevated Ammonia levels respiratory distress>>> now failure COVID positive pna NGTF abd us>> reviewed Xifaxan fu stool ob>>>neg GI procedures if needed abx per id hepatitis panel>>>>>positive for hep C>>> needs out patient fu poor prognosis still has loose stools>>> off lactulose will fu Subjective ROS Limited/Unobtainable: No Allergies: Coded Allergies: No Known Allergies (Unverified , 02/29/20) Objective Last 24 Hour Vital Signs Date Time Temp Pulse Resp B/P (MAP) Pulse Ox O2 Delivery O2 Flow Rate FiO2 03/29/20 09:10 109/44 03/29/20 09:01 60 03/29/20 08:30 60 03/29/20 08:00 99.1 88 24 86/47 (60) 94 03/29/20 08:00 50 03/29/20 08:00 Mechanical Ventilator Mechanical Ventilator 03/29/20 07:30 92 24 107/48 (67) 94 03/29/20 07:07 92 24 50 03/29/20 07:00 86 24 89/47 (61) 88 03/29/20 07:00 102/54 03/29/20 06:45 82 24 102/54 (70) 94 03/29/20 06:30 82 24 105/52 (69) 95 03/29/20 06:15 82 24 107/54 (71) 95 03/29/20 06:00 107/54 03/29/20 06:00 82 24 111/60 (77) 95 03/29/20 05:45 83 24 110/57 (74) 95 03/29/20 05:30 131/59 03/29/20 05:30 84 24 131/59 (83) 96 03/29/20 05:15 83 24 96/50 (65) 96 03/29/20 05:13 127/64 03/29/20 05:00 86 24 127/64 (85) 95 03/29/20 05:00 96/50 03/29/20 04:45 87 24 116/65 (82) 94 03/29/20 04:30 88 24 112/54 (73) 93 03/29/20 04:15 89 24 112/55 (74) 93 03/29/20 04:00 117/55 03/29/20 04:00 50 03/29/20 04:00 98.5 88 24 117/55 (75) 94 03/29/20 04:00 Mechanical Ventilator Mechanical Ventilator 03/29/20 03:55 88 24 50 03/29/20 03:45 87 24 120/60 (80) 94 03/29/20 03:30 86 24 126/64 (84) 94 03/29/20 03:20 84 24 112/55 (74) 94 03/29/20 03:17 83 25 76/60 (65) 95 03/29/20 03:15 76/55 03/29/20 03:15 83 26 89/43 (58) 100 03/29/20 03:01 81 03/29/20 03:00 101/50 03/29/20 03:00 82 24 101/50 (67) 99 03/29/20 02:45 81 24 99/54 (69) 100 03/29/20 02:30 81 24 110/47 (68) 100 03/29/20 02:15 81 24 109/62 (78) 100 03/29/20 02:00 110/57 03/29/20 02:00 81 24 110/57 (74) 100 03/29/20 01:45 82 24 116/56 (76) 100 03/29/20 01:35 113/54 03/29/20 01:30 82 24 113/54 (73) 100 03/29/20 01:15 83 24 111/53 (72) 100 03/29/20 01:00 83 24 108/57 (74) 100 03/29/20 01:00 111/53 03/29/20 00:45 84 24 108/54 (72) 100 03/29/20 00:30 85 24 115/56 (75) 100 03/29/20 00:15 85 24 106/54 (71) 99 03/29/20 00:00 98.3 86 24 103/51 (68) 99 03/29/20 00:00 106/54 03/29/20 00:00 Mechanical Ventilator Mechanical Ventilator 03/29/20 00:00 50 03/28/20 23:45 87 24 100/54 (69) 98 03/28/20 23:37 88 24 91/49 (63) 98 5/12/20 23:30 88 24 91/47 (62) 98 03/28/20 23:19 88 03/28/20 23:15 88 24 94/53 (67) 99 03/28/20 23:11 87 24 50 03/28/20 23:00 87 24 106/56 (73) 99 03/28/20 23:00 94/53 03/28/20 22:45 86 24 111/61 (78) 99 03/28/20 22:30 24 106/56 Mechanical Ventilator 50 03/28/20 22:30 85 24 113/60 (77) 99 03/28/20 22:15 85 24 124/63 (83) 99 03/28/20 22:00 124/63 03/28/20 22:00 85 24 126/64 (84) 98 03/28/20 21:51 89 24 81/47 (58) 95 03/28/20 21:45 90 24 66/47 (53) 95 03/28/20 21:30 84 24 129/53 (78) 99 03/28/20 21:30 126/64 03/28/20 21:15 85 24 132/64 (86) 100 03/28/20 21:00 85 24 132/59 (83) 100 03/28/20 21:00 132/64 03/28/20 20:45 85 24 128/64 (85) 100 03/28/20 20:30 85 24 122/67 (85) 100 03/28/20 20:15 86 24 122/64 (83) 100 03/28/20 20:00 50 03/28/20 20:00 98.0 87 24 120/64 (82) 100 03/28/20 20:00 Mechanical Ventilator Mechanical Ventilator 03/28/20 20:00 126/64 03/28/20 19:45 88 24 120/63 (82) 100 03/28/20 19:42 88 24 50 03/28/20 19:29 89 03/28/20 19:00 108/59 03/28/20 19:00 89 24 108/59 (75) 99 03/28/20 18:30 88 24 122/62 (82) 99 03/28/20 18:00 87 24 118/56 (76) 99 03/28/20 18:00 118/56 03/28/20 17:42 153/69 03/28/20 17:30 86 24 110/64 (79) 99 03/28/20 17:00 86 24 146/72 (96) 99 03/28/20 17:00 146/72 03/28/20 16:30 86 24 153/69 (97) 99 03/28/20 16:00 Mechanical Ventilator Mechanical Ventilator 03/28/20 16:00 50 03/28/20 16:00 88 03/28/20 16:00 24 166/73 Mechanical Ventilator 24 03/28/20 16:00 166/73 03/28/20 16:00 97.8 89 24 166/73 (104) 99 03/28/20 15:30 90 24 157/76 (103) 99 03/28/20 15:13 84 24 50 03/28/20 15:00 24 155/73 Mechanical Ventilator 50 03/28/20 15:00 155/73 03/28/20 15:00 90 24 155/73 (100) 99 03/28/20 14:30 91 24 140/70 (93) 99 03/28/20 14:00 24 136/69 Mechanical Ventilator 50 03/28/20 14:00 136/69 03/28/20 14:00 91 24 136/69 (91) 98 03/28/20 13:33 59/31 03/28/20 13:30 93 24 148/74 (98) 97 03/28/20 13:00 93 24 79/37 (51) 97 03/28/20 13:00 24 79/37 Mechanical Ventilator 50 03/28/20 13:00 79/37 03/28/20 12:30 98 24 94/42 (59) 95 03/28/20 12:00 24 129/59 Mechanical Ventilator 50 03/28/20 12:00 129/59 03/28/20 12:00 50 03/28/20 12:00 99.0 88 24 123/51 (75) 98 03/28/20 12:00 89 03/28/20 12:00 Mechanical Ventilator Mechanical Ventilator 03/28/20 11:30 86 24 133/68 (89) 99 03/28/20 11:00 24 132/62 Mechanical Ventilator 50 03/28/20 11:00 132/67 03/28/20 11:00 86 24 133/68 (89) 98 5/12/20 10:49 85 24 50 03/28/20 10:00 24 146/68 Mechanical Ventilator 50 03/28/20 10:00 146/68 03/28/20 10:00 88 24 72/34 (47) 97 Intake and Output 03/28/20 03/29/20 19:00 07:00 Intake Total 2871.799 ml 2581.82177 ml Output Total 1180 ml 725 ml Balance 1691.799 ml 1856.40953 ml Free Water 300 ml 150 ml IV Total 1821.799 ml 1831.74956 ml Tube Feeding 570 ml 600 ml Other 180 ml Output Urine Total 1180 ml 675 ml Stool Total 50 ml Laboratory Tests 03/29/20 04:05: White Blood Count 26.4*H, Red Blood Count 2.85L, Hemoglobin 10.1L, Hematocrit 31.7L, Mean Corpuscular Volume 111H, Mean Corpuscular Hemoglobin 35.3H, Mean Corpuscular Hemoglobin Concent 31.7L, Red Cell Distribution Width 22.1H, Platelet Count 135L, Mean Platelet Volume 7.5, Neutrophils (%) (Auto) , Lymphocytes (%) (Auto) , Monocytes (%) (Auto) , Eosinophils (%) (Auto) , Basophils (%) (Auto) , Differential Total Cells Counted 100, Neutrophils % ( Manual) 88H, Lymphocytes % (Manual) 3L, Monocytes % (Manual) 9, Eosinophils % ( Manual) 0, Basophils % (Manual) 0, Band Neutrophils 0, Platelet Estimate DecreasedL, Platelet Morphology Normal, Hypochromasia 1+, Anisocytosis 3+, Macrocytosis 2+, Sodium Level 154H, Potassium Level 4.4, Chloride Level 110H, Carbon Dioxide Level 43*H, Anion Gap 0L, Blood Urea Nitrogen 48H, Creatinine 0.9 , Estimat Glomerular Filtration Rate > 60, Glucose Level 402H, Uric Acid 5.9, Calcium Level 9.6, Phosphorus Level 3.4, Magnesium Level 2.7H, Total Bilirubin 1.8H, Direct Bilirubin 1.1H, Aspartate Amino Transf (AST/SGOT) 356H, Alanine Aminotransferase (ALT/SGPT) 269H, Alkaline Phosphatase 341H, Total Protein 6.6, Albumin 2.2L, Globulin 4.4, Albumin/Globulin Ratio 0.5L 03/29/20 08:05: Arterial Blood pH 7.371, Arterial Blood Partial Pressure CO2 73.5*H, Arterial Blood Partial Pressure O2 64.5L, Arterial Blood HCO3 41.6*H, Arterial Blood Oxygen Saturation 87.9*L, Arterial Blood Base Excess 14*H, Joaquin Test N/a Height (Feet): 5 Height (Inches): 1.00 Weight (Pounds): 225 General Appearance: lethargic EENT: normal ENT inspection Neck: supple Cardiovascular: tachycardia Respiratory/Chest: decreased breath sounds Abdomen: soft, hypoactive bowel sounds Extremities: non-tender Tam Spicer MD March 29, 2020 09:41
--- NOTE | 2020-03-29 10:10 | Infectious Diseases Prog Note ---
Assessment/Plan Assessment/Plan IMPRESSION: 1. Bilateral leg cellulitis,Pseudomonas in culture 2. Anemia. 3. Hypoxemic respiratory failure 4. Thrombocytopenia. 5. Homeless 6. Morbid obesity. 7. Cirrhosis 8. COVID19 pneumonia Positive03/07-03/12 9. Hepatitis C 10.septic shock 11. Pneumonia with Pseudomonas 12. DM & hyperglycemia 13. Diarrhea, 14. Leukocytosis RECOMMENDATION: Will f/u COVID19 test Finished Plaquenil ,Actemra & Ivermectin CXR, UA & urine culture, C. difficile test Discontinue Levaquin, Start on Meropenem Taper steroids Blood culture is negative so far Repeat COVID19 test Case was D/W RN Subjective ROS Limited/Unobtainable: Yes Constitutional: Denies: fever Respiratory: Reports: other - FIO2 increased to 60% Cardiovascular: Reports: other - on Dopamin Gastrointestinal/Abdominal: Reports: diarrhea Allergies: Coded Allergies: No Known Allergies (Unverified , 02/29/20) Objective Vital Signs Last 24 Hour Vital Signs Date Time Temp Pulse Resp B/P (MAP) Pulse Ox O2 Delivery O2 Flow Rate FiO2 03/29/20 09:10 109/44 03/29/20 09:01 60 03/29/20 08:30 60 03/29/20 08:00 99.1 88 24 86/47 (60) 94 03/29/20 08:00 50 03/29/20 08:00 Mechanical Ventilator Mechanical Ventilator 03/29/20 07:30 92 24 107/48 (67) 94 03/29/20 07:07 92 24 50 03/29/20 07:00 86 24 89/47 (61) 88 03/29/20 07:00 102/54 03/29/20 06:45 82 24 102/54 (70) 94 03/29/20 06:30 82 24 105/52 (69) 95 03/29/20 06:15 82 24 107/54 (71) 95 03/29/20 06:00 107/54 03/29/20 06:00 82 24 111/60 (77) 95 03/29/20 05:45 83 24 110/57 (74) 95 03/29/20 05:30 131/59 03/29/20 05:30 84 24 131/59 (83) 96 03/29/20 05:15 83 24 96/50 (65) 96 03/29/20 05:13 127/64 03/29/20 05:00 86 24 127/64 (85) 95 03/29/20 05:00 96/50 03/29/20 04:45 87 24 116/65 (82) 94 03/29/20 04:30 88 24 112/54 (73) 93 03/29/20 04:15 89 24 112/55 (74) 93 03/29/20 04:00 117/55 03/29/20 04:00 50 03/29/20 04:00 98.5 88 24 117/55 (75) 94 03/29/20 04:00 Mechanical Ventilator Mechanical Ventilator 03/29/20 03:55 88 24 50 03/29/20 03:45 87 24 120/60 (80) 94 03/29/20 03:30 86 24 126/64 (84) 94 03/29/20 03:20 84 24 112/55 (74) 94 03/29/20 03:17 83 25 76/60 (65) 95 03/29/20 03:15 76/55 03/29/20 03:15 83 26 89/43 (58) 100 03/29/20 03:01 81 03/29/20 03:00 101/50 03/29/20 03:00 82 24 101/50 (67) 99 03/29/20 02:45 81 24 99/54 (69) 100 03/29/20 02:30 81 24 110/47 (68) 100 03/29/20 02:15 81 24 109/62 (78) 100 03/29/20 02:00 110/57 03/29/20 02:00 81 24 110/57 (74) 100 03/29/20 01:45 82 24 116/56 (76) 100 03/29/20 01:35 113/54 03/29/20 01:30 82 24 113/54 (73) 100 03/29/20 01:15 83 24 111/53 (72) 100 03/29/20 01:00 83 24 108/57 (74) 100 03/29/20 01:00 111/53 03/29/20 00:45 84 24 108/54 (72) 100 03/29/20 00:30 85 24 115/56 (75) 100 03/29/20 00:15 85 24 106/54 (71) 99 03/29/20 00:00 98.3 86 24 103/51 (68) 99 03/29/20 00:00 106/54 03/29/20 00:00 Mechanical Ventilator Mechanical Ventilator 03/29/20 00:00 50 03/28/20 23:45 87 24 100/54 (69) 98 03/28/20 23:37 88 24 91/49 (63) 98 03/28/20 23:30 88 24 91/47 (62) 98 03/28/20 23:19 88 03/28/20 23:15 88 24 94/53 (67) 99 03/28/20 23:11 87 24 50 03/28/20 23:00 87 24 106/56 (73) 99 03/28/20 23:00 94/53 03/28/20 22:45 86 24 111/61 (78) 99 03/28/20 22:30 24 106/56 Mechanical Ventilator 50 03/28/20 22:30 85 24 113/60 (77) 99 03/28/20 22:15 85 24 124/63 (83) 99 03/28/20 22:00 124/63 03/28/20 22:00 85 24 126/64 (84) 98 03/28/20 21:51 89 24 81/47 (58) 95 03/28/20 21:45 90 24 66/47 (53) 95 03/28/20 21:30 84 24 129/53 (78) 99 03/28/20 21:30 126/64 03/28/20 21:15 85 24 132/64 (86) 100 03/28/20 21:00 85 24 132/59 (83) 100 03/28/20 21:00 132/64 03/28/20 20:45 85 24 128/64 (85) 100 03/28/20 20:30 85 24 122/67 (85) 100 03/28/20 20:15 86 24 122/64 (83) 100 03/28/20 20:00 50 03/28/20 20:00 98.0 87 24 120/64 (82) 100 03/28/20 20:00 Mechanical Ventilator Mechanical Ventilator 03/28/20 20:00 126/64 03/28/20 19:45 88 24 120/63 (82) 100 03/28/20 19:42 88 24 50 03/28/20 19:29 89 03/28/20 19:00 108/59 03/28/20 19:00 89 24 108/59 (75) 99 03/28/20 18:30 88 24 122/62 (82) 99 03/28/20 18:00 87 24 118/56 (76) 99 03/28/20 18:00 118/56 03/28/20 17:42 153/69 03/28/20 17:30 86 24 110/64 (79) 99 03/28/20 17:00 86 24 146/72 (96) 99 03/28/20 17:00 146/72 03/28/20 16:30 86 24 153/69 (97) 99 03/28/20 16:00 Mechanical Ventilator Mechanical Ventilator 03/28/20 16:00 50 03/28/20 16:00 88 03/28/20 16:00 24 166/73 Mechanical Ventilator 24 03/28/20 16:00 166/73 03/28/20 16:00 97.8 89 24 166/73 (104) 99 03/28/20 15:30 90 24 157/76 (103) 99 03/28/20 15:13 84 24 50 03/28/20 15:00 24 155/73 Mechanical Ventilator 50 03/28/20 15:00 155/73 03/28/20 15:00 90 24 155/73 (100) 99 03/28/20 14:30 91 24 140/70 (93) 99 03/28/20 14:00 24 136/69 Mechanical Ventilator 50 03/28/20 14:00 136/69 03/28/20 14:00 91 24 136/69 (91) 98 03/28/20 13:33 59/31 03/28/20 13:30 93 24 148/74 (98) 97 03/28/20 13:00 93 24 79/37 (51) 97 03/28/20 13:00 24 79/37 Mechanical Ventilator 50 03/28/20 13:00 79/37 03/28/20 12:30 98 24 94/42 (59) 95 03/28/20 12:00 24 129/59 Mechanical Ventilator 50 03/28/20 12:00 129/59 03/28/20 12:00 50 5/12/20 12:00 99.0 88 24 123/51 (75) 98 03/28/20 12:00 89 03/28/20 12:00 Mechanical Ventilator Mechanical Ventilator 03/28/20 11:30 86 24 133/68 (89) 99 03/28/20 11:00 24 132/62 Mechanical Ventilator 50 03/28/20 11:00 132/67 03/28/20 11:00 86 24 133/68 (89) 98 03/28/20 10:49 85 24 50 Height (Feet): 5 Height (Inches): 1.00 Weight (Pounds): 225 HEENT: mucous membranes moist, other - orally intubated Respiratory/Chest: other - on ventilator Cardiovascular: normal rate, other - PICC line Abdomen: soft, non tender, other - NG & rectal tube Extremities: other - generalized edema Neurologic/Psychiatric: other - sedated Laboratory Tests Test 03/29/20 04:05 03/29/20 08:05 White Blood Count 26.4 K/UL (4.8-10.8) *H Red Blood Count 2.85 M/UL (4.20-5.40) L Hemoglobin 10.1 G/DL (12.0-16.0) L Hematocrit 31.7 % (37.0-47.0) L Mean Corpuscular Volume 111 FL (80-99) H Mean Corpuscular Hemoglobin 35.3 PG (27.0-31.0) H Mean Corpuscular Hemoglobin Concent 31.7 G/DL (32.0-36.0) L Red Cell Distribution Width 22.1 % (11.6-14.8) H Platelet Count 135 K/UL (150-450) L Mean Platelet Volume 7.5 FL (6.5-10.1) Neutrophils (%) (Auto) % (45.0-75.0) Lymphocytes (%) (Auto) % (20.0-45.0) Monocytes (%) (Auto) % (1.0-10.0) Eosinophils (%) (Auto) % (0.0-3.0) Basophils (%) (Auto) % (0.0-2.0) Differential Total Cells Counted 100 Neutrophils % (Manual) 88 % (45-75) H Lymphocytes % (Manual) 3 % (20-45) L Monocytes % (Manual) 9 % (1-10) Eosinophils % (Manual) 0 % (0-3) Basophils % (Manual) 0 % (0-2) Band Neutrophils 0 % (0-8) Platelet Estimate Decreased L Platelet Morphology Normal Hypochromasia 1+ Anisocytosis 3+ Macrocytosis 2+ Sodium Level 154 MMOL/L (136-145) H Potassium Level 4.4 MMOL/L (3.5-5.1) Chloride Level 110 MMOL/L (98-107) H Carbon Dioxide Level 43 MMOL/L (21-32) *H Anion Gap 0 mmol/L (5-15) L Blood Urea Nitrogen 48 mg/dL (7-18) H Creatinine 0.9 MG/DL (0.55-1.30) Estimat Glomerular Filtration Rate > 60 mL/min (>60) Glucose Level 402 MG/DL (74-106) H Uric Acid 5.9 MG/DL (2.6-7.2) Calcium Level 9.6 MG/DL (8.5-10.1) Phosphorus Level 3.4 MG/DL (2.5-4.9) Magnesium Level 2.7 MG/DL (1.8-2.4) H Total Bilirubin 1.8 MG/DL (0.2-1.0) H Direct Bilirubin 1.1 MG/DL (0.0-0.3) H Aspartate Amino Transf (AST/SGOT) 356 U/L (15-37) H Alanine Aminotransferase (ALT/SGPT) 269 U/L (12-78) H Alkaline Phosphatase 341 U/L (46-116) H Total Protein 6.6 G/DL (6.4-8.2) Albumin 2.2 G/DL (3.4-5.0) L Globulin 4.4 g/dL Albumin/Globulin Ratio 0.5 (1.0-2.7) L Arterial Blood pH 7.371 (7.350-7.450) Arterial Blood Partial Pressure CO2 73.5 mmHg (35.0-45.0) *H Arterial Blood Partial Pressure O2 64.5 mmHg (75.0-100.0) L Arterial Blood HCO3 41.6 mmol/L (22.0-26.0) *H Arterial Blood Oxygen Saturation 87.9 % (95-100) *L Arterial Blood Base Excess 14 (-2-2) *H Joaquin Test N/a Current Medications Medications (Trade) Dose Ordered Sig/Dolores Route PRN Reason Start Time Stop Time Status Last Admin Dose Admin Acetaminophen (Tylenol) 650 mg Q4H PRN ORAL Mild Pain (Pain Scale 1-3) 03/13/20 14:53 04/12/20 14:52 03/25/20 12:35 Acetaminophen (Tylenol) 650 mg Q4H PRN ORAL Temp >100 03/13/20 14:53 04/12/20 14:52 03/25/20 17:16 Chlorhexidine Gluconate (Lucretia-Hex 2%) 1 applic DAILY@2000 TOPIC 03/13/20 20:00 06/11/20 19:59 03/28/20 21:30 Dextrose 1,000 ml @ 100 mls/hr Q10H IV 03/27/20 08:00 04/26/20 07:59 03/29/20 08:43 Dextrose (Dextrose 50%) 25 ml Q30M PRN IV Hypoglycemia 03/28/20 06:45 06/26/20 06:44 Dextrose (Dextrose 50%) 50 ml Q30M PRN IV Hypoglycemia 03/28/20 06:45 06/26/20 06:44 Dopamine HCl/ Dextrose 250 ml @ 0 mls/hr Q24H IV 03/16/20 19:30 06/14/20 19:29 03/29/20 09:10 Enoxaparin Sodium (Lovenox) 100 mg EVERY 12 HOURS SUBQ 03/23/20 21:00 06/21/20 20:59 03/29/20 08:09 Fentanyl Citrate 1000 mcg/Sodium Chloride 100 ml @ 0 mls/hr Q24H IV 03/27/20 22:30 04/03/20 22:29 03/27/20 22:56 Hydralazine HCl (Apresoline) 10 mg Q6H PRN IV For High Blood Pressure 03/24/20 16:45 06/22/20 16:44 Insulin Aspart (NovoLOG) EVERY 4 HOURS SUBQ 03/26/20 09:00 06/24/20 08:59 03/29/20 08:44 Insulin Aspart (NovoLOG) 28 units EVERY 4 HOURS SUBQ 03/29/20 09:00 06/26/20 08:59 03/29/20 08:44 Insulin Detemir (Levemir) 50 units Q12HR SUBQ 03/29/20 09:00 06/20/20 18:59 03/29/20 08:43 Levofloxacin (Levaquin) 750 mg DAILY NG 03/28/20 09:00 04/04/20 08:59 03/29/20 08:08 Levothyroxine Sodium (Synthroid) 50 mcg DAILY IV 03/21/20 09:00 04/17/20 11:59 03/29/20 08:43 Lorazepam (Ativan 2mg/ml 1ml) 1 mg Q2H PRN IV For Anxiety 03/25/20 16:30 04/01/20 16:29 03/25/20 23:39 Methylprednisolone Sodium Succinate (Solu-MEDROL) 20 mg DAILY IVP 03/28/20 09:00 03/30/20 08:59 03/29/20 08:08 Midodrine (Pro-Amatine) 10 mg THREE TIMES A DAY NG 03/27/20 09:00 06/20/20 12:29 03/29/20 08:08 Non-Formulary Medication (Non-Formulary Med) 1 ea DAILY IV 03/18/20 09:00 04/17/20 08:59 UNV Norepinephrine Bitartrate 4 mg/ Dextrose 250 ml @ 0 mls/hr Q24H PRN IV For hypotension 03/25/20 16:30 04/24/20 16:29 Vasopressin 100 units/Sodium Chloride 100 ml @ 0 mls/hr Q24H PRN IV For hypotension 03/16/20 11:00 04/15/20 10:59 03/19/20 18:03 Jonathon Shah MD March 29, 2020 10:10
--- NOTE | 2020-03-29 11:25 | Nephrology Progress Note ---
Assessment/Plan Problem List: (1) Electrolyte imbalance Assessment: Hyponatremia resolved -hyperkalemia resolved (2) COVID-19 (3) Respiratory failure with hypoxia (4) Cellulitis (5) Hypothyroid Assessment Hyponatremia. Serum sodium started drifting down from March 16. Hyperkalemia. Septic shock. Acute respiratory failure. Respiratory failure and COVID pneumonia. History of cirrhosis/splenomegaly Anemia Bilateral lower extremity cellulitis Plan March 29: Worsening leukocytosis Serum sodium lowering Blood sugar still elevated need insulin adjustment Continue to monitor electrolytes and renal parameters Continue per pulmonary Discussed with DAO Sarkar March 28: Serum sodium down to 160 Continue with D5W Continue per pulmonary March 27: Serum sodium vahe Patient retaining CO2 Will start D5W IV fluid Hold Diamox for now until further comments from anode builder Continue to monitor electrolytes Midodrine dose increased March 26: Remains unstable. Lasix and potassium chloride discontinued. IV Diamox initiated. ABG noted. Midodrine initiated. Continue per pulmonary and ID. Statins discontinued due to elevated liver enzymes. Continue to monitor electrolytes and renal parameters and ABG. Patient remains full code. 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 per curing pickling packer Taper steroids's deferred to anode builder Urine sodium is below 20 Serum ammonia is elevated will start lactulose Patient on Solu-Medrol and Solu-Cortef will discontinue Solu-Cortef Will try to gently diurese for severe edema meanwhile administering albumin 25% as needed Monitor electrolytes and renal parameters We will add midodrine 10 mg 3 times a day via NG tube Decrease dosage of IV Synthroid Discussed with DAO Starr Subjective ROS Limited/Unobtainable: Yes Objective Objective Last 24 Hour Vital Signs Date Time Temp Pulse Resp B/P (MAP) Pulse Ox O2 Delivery O2 Flow Rate FiO2 03/29/20 11:00 101/47 03/29/20 11:00 86 24 101/47 (65) 92 03/29/20 10:30 84 24 104/45 (64) 93 03/29/20 10:00 112/42 03/29/20 10:00 82 24 112/42 (65) 95 03/29/20 09:30 82 24 110/39 (62) 96 03/29/20 09:10 109/44 03/29/20 09:01 60 03/29/20 09:00 83 24 109/44 (65) 97 03/29/20 09:00 109/44 03/29/20 08:30 84 25 82/34 (50) 97 03/29/20 08:30 60 03/29/20 08:00 99.1 88 24 86/47 (60) 94 03/29/20 08:00 50 03/29/20 08:00 86/47 03/29/20 08:00 87 03/29/20 08:00 Mechanical Ventilator Mechanical Ventilator 03/29/20 07:30 92 24 107/48 (67) 94 03/29/20 07:07 92 24 50 03/29/20 07:00 86 24 89/47 (61) 88 03/29/20 07:00 102/54 03/29/20 06:45 82 24 102/54 (70) 94 03/29/20 06:30 82 24 105/52 (69) 95 03/29/20 06:15 82 24 107/54 (71) 95 03/29/20 06:00 107/54 03/29/20 06:00 82 24 111/60 (77) 95 03/29/20 05:45 83 24 110/57 (74) 95 03/29/20 05:30 131/59 03/29/20 05:30 84 24 131/59 (83) 96 03/29/20 05:15 83 24 96/50 (65) 96 03/29/20 05:13 127/64 03/29/20 05:00 86 24 127/64 (85) 95 03/29/20 05:00 96/50 03/29/20 04:45 87 24 116/65 (82) 94 03/29/20 04:30 88 24 112/54 (73) 93 03/29/20 04:15 89 24 112/55 (74) 93 03/29/20 04:00 117/55 03/29/20 04:00 50 03/29/20 04:00 98.5 88 24 117/55 (75) 94 03/29/20 04:00 Mechanical Ventilator Mechanical Ventilator 03/29/20 03:55 88 24 50 5/13/20 03:45 87 24 120/60 (80) 94 03/29/20 03:30 86 24 126/64 (84) 94 03/29/20 03:20 84 24 112/55 (74) 94 03/29/20 03:17 83 25 76/60 (65) 95 03/29/20 03:15 76/55 03/29/20 03:15 83 26 89/43 (58) 100 03/29/20 03:01 81 03/29/20 03:00 101/50 03/29/20 03:00 82 24 101/50 (67) 99 03/29/20 02:45 81 24 99/54 (69) 100 03/29/20 02:30 81 24 110/47 (68) 100 03/29/20 02:15 81 24 109/62 (78) 100 03/29/20 02:00 110/57 03/29/20 02:00 81 24 110/57 (74) 100 03/29/20 01:45 82 24 116/56 (76) 100 03/29/20 01:35 113/54 03/29/20 01:30 82 24 113/54 (73) 100 03/29/20 01:15 83 24 111/53 (72) 100 03/29/20 01:00 83 24 108/57 (74) 100 03/29/20 01:00 111/53 03/29/20 00:45 84 24 108/54 (72) 100 03/29/20 00:30 85 24 115/56 (75) 100 03/29/20 00:15 85 24 106/54 (71) 99 03/29/20 00:00 98.3 86 24 103/51 (68) 99 03/29/20 00:00 106/54 03/29/20 00:00 Mechanical Ventilator Mechanical Ventilator 03/29/20 00:00 50 03/28/20 23:45 87 24 100/54 (69) 98 03/28/20 23:37 88 24 91/49 (63) 98 03/28/20 23:30 88 24 91/47 (62) 98 03/28/20 23:19 88 03/28/20 23:15 88 24 94/53 (67) 99 03/28/20 23:11 87 24 50 03/28/20 23:00 87 24 106/56 (73) 99 03/28/20 23:00 94/53 03/28/20 22:45 86 24 111/61 (78) 99 03/28/20 22:30 24 106/56 Mechanical Ventilator 50 03/28/20 22:30 85 24 113/60 (77) 99 03/28/20 22:15 85 24 124/63 (83) 99 03/28/20 22:00 124/63 03/28/20 22:00 85 24 126/64 (84) 98 03/28/20 21:51 89 24 81/47 (58) 95 03/28/20 21:45 90 24 66/47 (53) 95 03/28/20 21:30 84 24 129/53 (78) 99 03/28/20 21:30 126/64 03/28/20 21:15 85 24 132/64 (86) 100 03/28/20 21:00 85 24 132/59 (83) 100 03/28/20 21:00 132/64 03/28/20 20:45 85 24 128/64 (85) 100 03/28/20 20:30 85 24 122/67 (85) 100 03/28/20 20:15 86 24 122/64 (83) 100 03/28/20 20:00 50 03/28/20 20:00 98.0 87 24 120/64 (82) 100 03/28/20 20:00 Mechanical Ventilator Mechanical Ventilator 03/28/20 20:00 126/64 03/28/20 19:45 88 24 120/63 (82) 100 03/28/20 19:42 88 24 50 03/28/20 19:29 89 03/28/20 19:00 108/59 03/28/20 19:00 89 24 108/59 (75) 99 03/28/20 18:30 88 24 122/62 (82) 99 03/28/20 18:00 87 24 118/56 (76) 99 03/28/20 18:00 118/56 03/28/20 17:42 153/69 03/28/20 17:30 86 24 110/64 (79) 99 03/28/20 17:00 86 24 146/72 (96) 99 03/28/20 17:00 146/72 03/28/20 16:30 86 24 153/69 (97) 99 03/28/20 16:00 Mechanical Ventilator Mechanical Ventilator 03/28/20 16:00 50 03/28/20 16:00 88 03/28/20 16:00 24 166/73 Mechanical Ventilator 24 03/28/20 16:00 166/73 03/28/20 16:00 97.8 89 24 166/73 (104) 99 03/28/20 15:30 90 24 157/76 (103) 99 03/28/20 15:13 84 24 50 03/28/20 15:00 24 155/73 Mechanical Ventilator 50 03/28/20 15:00 155/73 03/28/20 15:00 90 24 155/73 (100) 99 03/28/20 14:30 91 24 140/70 (93) 99 03/28/20 14:00 24 136/69 Mechanical Ventilator 50 03/28/20 14:00 136/69 03/28/20 14:00 91 24 136/69 (91) 98 03/28/20 13:33 59/31 03/28/20 13:30 93 24 148/74 (98) 97 03/28/20 13:00 93 24 79/37 (51) 97 03/28/20 13:00 24 79/37 Mechanical Ventilator 50 03/28/20 13:00 79/37 03/28/20 12:30 98 24 94/42 (59) 95 03/28/20 12:00 24 129/59 Mechanical Ventilator 50 03/28/20 12:00 129/59 03/28/20 12:00 50 03/28/20 12:00 99.0 88 24 123/51 (75) 98 03/28/20 12:00 89 03/28/20 12:00 Mechanical Ventilator Mechanical Ventilator 03/28/20 11:30 86 24 133/68 (89) 99 Intake and Output 03/28/20 03/29/20 19:00 07:00 Intake Total 2871.799 ml 2581.04202 ml Output Total 1180 ml 725 ml Balance 1691.799 ml 1856.30493 ml Free Water 300 ml 150 ml IV Total 1821.799 ml 1831.25596 ml Tube Feeding 570 ml 600 ml Other 180 ml Output Urine Total 1180 ml 675 ml Stool Total 50 ml Laboratory Tests 03/29/20 04:05: White Blood Count 26.4*H, Red Blood Count 2.85L, Hemoglobin 10.1L, Hematocrit 31.7L, Mean Corpuscular Volume 111H, Mean Corpuscular Hemoglobin 35.3H, Mean Corpuscular Hemoglobin Concent 31.7L, Red Cell Distribution Width 22.1H, Platelet Count 135L, Mean Platelet Volume 7.5, Neutrophils (%) (Auto) , Lymphocytes (%) (Auto) , Monocytes (%) (Auto) , Eosinophils (%) (Auto) , Basophils (%) (Auto) , Differential Total Cells Counted 100, Neutrophils % ( Manual) 88H, Lymphocytes % (Manual) 3L, Monocytes % (Manual) 9, Eosinophils % ( Manual) 0, Basophils % (Manual) 0, Band Neutrophils 0, Platelet Estimate DecreasedL, Platelet Morphology Normal, Hypochromasia 1+, Anisocytosis 3+, Macrocytosis 2+, Sodium Level 154H, Potassium Level 4.4, Chloride Level 110H, Carbon Dioxide Level 43*H, Anion Gap 0L, Blood Urea Nitrogen 48H, Creatinine 0.9 , Estimat Glomerular Filtration Rate > 60, Glucose Level 402H, Uric Acid 5.9, Calcium Level 9.6, Phosphorus Level 3.4, Magnesium Level 2.7H, Total Bilirubin 1.8H, Direct Bilirubin 1.1H, Aspartate Amino Transf (AST/SGOT) 356H, Alanine Aminotransferase (ALT/SGPT) 269H, Alkaline Phosphatase 341H, Total Protein 6.6, Albumin 2.2L, Globulin 4.4, Albumin/Globulin Ratio 0.5L 03/29/20 08:05: Arterial Blood pH 7.371, Arterial Blood Partial Pressure CO2 73.5*H, Arterial Blood Partial Pressure O2 64.5L, Arterial Blood HCO3 41.6*H, Arterial Blood Oxygen Saturation 87.9*L, Arterial Blood Base Excess 14*H, Joaquin Test N/a Height (Feet): 5 Height (Inches): 1.00 Weight (Pounds): 225 General Appearance: no apparent distress EENT: other - Remains intubated on ventilator Cardiovascular: tachycardia - Mid 80s Respiratory/Chest: decreased breath sounds Cristhian Granados MD March 29, 2020 11:25
--- NOTE | 2020-03-29 11:53 | Hematology/Onc Progress Note ---
Assessment/Plan Assessment/Plan Assessment and Recs # Pancytopenia -- multiple etiologies could be related to underlying liver disease, medication-induced, infection versus viral syndrome versus underlying bone marrow cause, in this case, has severe liver disease and cirrhosis, HEP C++ , also cellulitis, COVID19++ --> peripheral smear has been ordered and does not show significant abnormalities and none noted --> Medications have been reviewed --> Continue to monitor for improvement, trend cbc --> Hep panel and HIV are both negative --> US abd ordered to r/o cirrhosis and hepatosplenomegaly ->CIRRHOSIS IS NOTED , LARGE SPLEEN --> reverse isolation if ANC is <2000 --> Give neupogen if ANC <1000 --> Transfuse if hgb <7, with 1 unit prbc --> anemia panel ordered as well-->CW acd --> hgb trend 7-->7.1-->8.4-->8.2 -->8.7-->9.9-->9.2-->9.5-->9.1-->10.1 --> plt 145k-->152-->162k-->149k-->121k-->171k-->149-->163-->135 --> wbc 3.4-->3.5->3.9->4.4-->11-->10.8 -->15->23-->26 --> abx: sameer/rifaximin-->levaquin /vanc-->sameer # Leukocytosis with Cellulitis of the lower extremities --> continue abx as needed as per id --> Started on IV antibiotics-->azithro/cefepime-->levaquin-->sameer --> as per surg recs, wound care --> on steriods at this time, likely contributor # Ftt --> remains on mirtazapine # Elevated LFTS --> as per gi --> due to cirrhosis # Respiratory failure --> s/p intubation 03/16 --> prone positioning as needed by pulm # Dvt ppx lovenox sq The timing of this note does not necessarily reflect the time of the patient was seen. Greatly appreciate consultation. Subjective Allergies: Coded Allergies: No Known Allergies (Unverified , 02/29/20) Subjective 03/02 no events, no bleeding, hgb 7.1, no hemolysis 03/03 s/p blood, hgb improved to 8.4, stool ob negtive, on abx 03/05 asleep, no acute distress, hgb 8.2 03/06 remains comfortable, on abx, plt remains low 03/07 is on nonrebreather, no night sweats, labs are noted 03/08 labs reviewed, being diuresed, seen by cards, psych, labs noted 03/09 lasix adjusted, wbc remains low at 3.9, reviewed meds, smear 03/10 no night sweats, no bleeding, labs noted, smear noted 03/12 labs noted, none completed, have reordered, cellulitis better 03/13 is continuing with chest pain, cards aware, no further studies until covid neg 03/14 labs noted, no bleeding, diuresis as needed, hgb stable 03/15 alseep is cooperative, no bleeding, meds noted 03/16 no bleeding or chills, hgb 10.8, no night sweats, no major events 03/17 now intubated, no bleeding, labs noted, dw rn 03/19 remains intubated, no bleeding, labs noted, on pressors 03/20 prone posiition, seen by gi and renal, nob leeding, hgb 10.1 03/21 sedated, remains agitated, pulling on 2p restraints, no bleeding 03/22 icu, h/h stable, finished plaq/zithro, no acute distress 03/23 in icu, remains restless no bleeding, labs noted, no bleeding 03/24 in icu, poor prognosis, no night sweats, no fc 03/26 on vent, unresponsive, no bleeding, wbc high is on abx and steriods 03/27 remains on vent, ngt, no bleeding, already on abx on steriods 03/28 labs noted, no bleeding, wbc 23k, hgb 9, still with ongoing leukocytosis, ngt feeds 03/29vicu, started on sameer, steroids being tapered, wbc 26.4, no sob Objective Objective Current Medications Medications (Trade) Dose Ordered Sig/Dolores Route PRN Reason Start Time Stop Time Status Last Admin Dose Admin Acetaminophen (Tylenol) 650 mg Q4H PRN ORAL Mild Pain (Pain Scale 1-3) 03/13/20 14:53 04/12/20 14:52 03/25/20 12:35 Acetaminophen (Tylenol) 650 mg Q4H PRN ORAL Temp >100 03/13/20 14:53 04/12/20 14:52 03/25/20 17:16 Chlorhexidine Gluconate (Lucretia-Hex 2%) 1 applic DAILY@2000 TOPIC 03/13/20 20:00 06/11/20 19:59 03/28/20 21:30 Dextrose 1,000 ml @ 100 mls/hr Q10H IV 03/27/20 08:00 04/26/20 07:59 03/29/20 08:43 Dextrose (Dextrose 50%) 25 ml Q30M PRN IV Hypoglycemia 03/28/20 06:45 06/26/20 06:44 Dextrose (Dextrose 50%) 50 ml Q30M PRN IV Hypoglycemia 03/28/20 06:45 06/26/20 06:44 Dopamine HCl/ Dextrose 250 ml @ 0 mls/hr Q24H IV 03/16/20 19:30 06/14/20 19:29 03/29/20 09:10 Enoxaparin Sodium (Lovenox) 100 mg EVERY 12 HOURS SUBQ 03/23/20 21:00 06/21/20 20:59 03/29/20 08:09 Fentanyl Citrate 1000 mcg/Sodium Chloride 100 ml @ 0 mls/hr Q24H IV 03/27/20 22:30 04/03/20 22:29 03/27/20 22:56 Hydralazine HCl (Apresoline) 10 mg Q6H PRN IV For High Blood Pressure 03/24/20 16:45 06/22/20 16:44 Insulin Aspart (NovoLOG) EVERY 4 HOURS SUBQ 03/26/20 09:00 06/24/20 08:59 03/29/20 08:44 Insulin Aspart (NovoLOG) 28 units EVERY 4 HOURS SUBQ 03/29/20 09:00 06/26/20 08:59 03/29/20 08:44 Insulin Detemir (Levemir) 50 units Q12HR SUBQ 03/29/20 09:00 06/20/20 18:59 03/29/20 08:43 Levothyroxine Sodium (Synthroid) 50 mcg DAILY IV 03/21/20 09:00 04/17/20 11:59 03/29/20 08:43 Lorazepam (Ativan 2mg/ml 1ml) 1 mg Q2H PRN IV For Anxiety 03/25/20 16:30 04/01/20 16:29 03/25/20 23:39 Meropenem 1 gm/ Sodium Chloride 55 ml @ 110 mls/hr Q8HR IVPB 03/29/20 14:00 04/03/20 13:59 Methylprednisolone Sodium Succinate (Solu-MEDROL) 20 mg DAILY IVP 03/28/20 09:00 03/30/20 08:59 03/29/20 08:08 Midodrine (Pro-Amatine) 10 mg THREE TIMES A DAY NG 03/27/20 09:00 06/20/20 12:29 03/29/20 08:08 Non-Formulary Medication (Non-Formulary Med) 1 ea DAILY IV 03/18/20 09:00 04/17/20 08:59 UNV Norepinephrine Bitartrate 4 mg/ Dextrose 250 ml @ 0 mls/hr Q24H PRN IV For hypotension 03/25/20 16:30 04/24/20 16:29 Vasopressin 100 units/Sodium Chloride 100 ml @ 0 mls/hr Q24H PRN IV For hypotension 03/16/20 11:00 04/15/20 10:59 03/19/20 18:03 Last 24 Hour Vital Signs Date Time Temp Pulse Resp B/P (MAP) Pulse Ox O2 Delivery O2 Flow Rate FiO2 03/29/20 11:00 101/47 03/29/20 11:00 86 24 101/47 (65) 92 03/29/20 10:58 86 24 60 03/29/20 10:30 84 24 104/45 (64) 93 03/29/20 10:00 112/42 03/29/20 10:00 82 24 112/42 (65) 95 03/29/20 09:30 82 24 110/39 (62) 96 03/29/20 09:10 109/44 03/29/20 09:01 60 03/29/20 09:00 83 24 109/44 (65) 97 5/13/20 09:00 109/44 03/29/20 08:30 84 25 82/34 (50) 97 03/29/20 08:30 60 03/29/20 08:00 99.1 88 24 86/47 (60) 94 03/29/20 08:00 50 03/29/20 08:00 86/47 03/29/20 08:00 87 03/29/20 08:00 Mechanical Ventilator Mechanical Ventilator 03/29/20 07:30 92 24 107/48 (67) 94 03/29/20 07:07 92 24 50 03/29/20 07:00 86 24 89/47 (61) 88 03/29/20 07:00 102/54 03/29/20 06:45 82 24 102/54 (70) 94 03/29/20 06:30 82 24 105/52 (69) 95 03/29/20 06:15 82 24 107/54 (71) 95 03/29/20 06:00 107/54 03/29/20 06:00 82 24 111/60 (77) 95 03/29/20 05:45 83 24 110/57 (74) 95 03/29/20 05:30 131/59 03/29/20 05:30 84 24 131/59 (83) 96 03/29/20 05:15 83 24 96/50 (65) 96 03/29/20 05:13 127/64 03/29/20 05:00 86 24 127/64 (85) 95 03/29/20 05:00 96/50 03/29/20 04:45 87 24 116/65 (82) 94 03/29/20 04:30 88 24 112/54 (73) 93 03/29/20 04:15 89 24 112/55 (74) 93 03/29/20 04:00 117/55 03/29/20 04:00 50 03/29/20 04:00 98.5 88 24 117/55 (75) 94 03/29/20 04:00 Mechanical Ventilator Mechanical Ventilator 03/29/20 03:55 88 24 50 03/29/20 03:45 87 24 120/60 (80) 94 03/29/20 03:30 86 24 126/64 (84) 94 03/29/20 03:20 84 24 112/55 (74) 94 03/29/20 03:17 83 25 76/60 (65) 95 03/29/20 03:15 76/55 03/29/20 03:15 83 26 89/43 (58) 100 03/29/20 03:01 81 03/29/20 03:00 101/50 03/29/20 03:00 82 24 101/50 (67) 99 03/29/20 02:45 81 24 99/54 (69) 100 03/29/20 02:30 81 24 110/47 (68) 100 03/29/20 02:15 81 24 109/62 (78) 100 03/29/20 02:00 110/57 03/29/20 02:00 81 24 110/57 (74) 100 03/29/20 01:45 82 24 116/56 (76) 100 03/29/20 01:35 113/54 03/29/20 01:30 82 24 113/54 (73) 100 03/29/20 01:15 83 24 111/53 (72) 100 03/29/20 01:00 83 24 108/57 (74) 100 03/29/20 01:00 111/53 03/29/20 00:45 84 24 108/54 (72) 100 03/29/20 00:30 85 24 115/56 (75) 100 03/29/20 00:15 85 24 106/54 (71) 99 03/29/20 00:00 98.3 86 24 103/51 (68) 99 03/29/20 00:00 106/54 03/29/20 00:00 Mechanical Ventilator Mechanical Ventilator 03/29/20 00:00 50 03/28/20 23:45 87 24 100/54 (69) 98 03/28/20 23:37 88 24 91/49 (63) 98 03/28/20 23:30 88 24 91/47 (62) 98 03/28/20 23:19 88 03/28/20 23:15 88 24 94/53 (67) 99 03/28/20 23:11 87 24 50 03/28/20 23:00 87 24 106/56 (73) 99 03/28/20 23:00 94/53 03/28/20 22:45 86 24 111/61 (78) 99 03/28/20 22:30 24 106/56 Mechanical Ventilator 50 03/28/20 22:30 85 24 113/60 (77) 99 03/28/20 22:15 85 24 124/63 (83) 99 03/28/20 22:00 124/63 03/28/20 22:00 85 24 126/64 (84) 98 03/28/20 21:51 89 24 81/47 (58) 95 03/28/20 21:45 90 24 66/47 (53) 95 03/28/20 21:30 84 24 129/53 (78) 99 03/28/20 21:30 126/64 03/28/20 21:15 85 24 132/64 (86) 100 03/28/20 21:00 85 24 132/59 (83) 100 03/28/20 21:00 132/64 03/28/20 20:45 85 24 128/64 (85) 100 03/28/20 20:30 85 24 122/67 (85) 100 03/28/20 20:15 86 24 122/64 (83) 100 03/28/20 20:00 50 03/28/20 20:00 98.0 87 24 120/64 (82) 100 03/28/20 20:00 Mechanical Ventilator Mechanical Ventilator 03/28/20 20:00 126/64 03/28/20 19:45 88 24 120/63 (82) 100 03/28/20 19:42 88 24 50 03/28/20 19:29 89 03/28/20 19:00 108/59 03/28/20 19:00 89 24 108/59 (75) 99 03/28/20 18:30 88 24 122/62 (82) 99 03/28/20 18:00 87 24 118/56 (76) 99 03/28/20 18:00 118/56 03/28/20 17:42 153/69 03/28/20 17:30 86 24 110/64 (79) 99 03/28/20 17:00 86 24 146/72 (96) 99 03/28/20 17:00 146/72 03/28/20 16:30 86 24 153/69 (97) 99 03/28/20 16:00 Mechanical Ventilator Mechanical Ventilator 03/28/20 16:00 50 03/28/20 16:00 88 03/28/20 16:00 24 166/73 Mechanical Ventilator 24 03/28/20 16:00 166/73 5/12/20 16:00 97.8 89 24 166/73 (104) 99 03/28/20 15:30 90 24 157/76 (103) 99 03/28/20 15:13 84 24 50 03/28/20 15:00 24 155/73 Mechanical Ventilator 50 03/28/20 15:00 155/73 03/28/20 15:00 90 24 155/73 (100) 99 03/28/20 14:30 91 24 140/70 (93) 99 03/28/20 14:00 24 136/69 Mechanical Ventilator 50 03/28/20 14:00 136/69 03/28/20 14:00 91 24 136/69 (91) 98 03/28/20 13:33 59/31 03/28/20 13:30 93 24 148/74 (98) 97 03/28/20 13:00 93 24 79/37 (51) 97 03/28/20 13:00 24 79/37 Mechanical Ventilator 50 03/28/20 13:00 79/37 03/28/20 12:30 98 24 94/42 (59) 95 03/28/20 12:00 24 129/59 Mechanical Ventilator 50 03/28/20 12:00 129/59 03/28/20 12:00 50 03/28/20 12:00 99.0 88 24 123/51 (75) 98 03/28/20 12:00 89 03/28/20 12:00 Mechanical Ventilator Mechanical Ventilator 03/28/20 11:30 86 24 133/68 (89) 99 03/28/20 11:00 24 132/62 Mechanical Ventilator 50 03/28/20 11:00 132/67 03/28/20 11:00 86 24 133/68 (89) 98 03/28/20 10:49 85 24 50 03/28/20 10:00 24 146/68 Mechanical Ventilator 50 03/28/20 10:00 146/68 03/28/20 10:00 88 24 72/34 (47) 97 03/28/20 09:00 88 24 99/48 (65) 100 03/28/20 09:00 24 99/48 Mechanical Ventilator 50 03/28/20 09:00 99/48 03/28/20 08:59 113/50 03/28/20 08:30 88 24 118/51 (73) 99 03/28/20 08:00 98.8 86 24 118/63 (81) 99 03/28/20 08:00 Mechanical Ventilator Mechanical Ventilator 03/28/20 08:00 24 118/63 Mechanical Ventilator 50 03/28/20 08:00 118/63 03/28/20 08:00 88 03/28/20 08:00 50 03/28/20 07:30 86 24 50 03/28/20 07:30 86 24 132/60 (84) 100 03/28/20 07:00 24 Mechanical Ventilator 50 03/28/20 07:00 129/58 03/28/20 07:00 86 24 129/58 (81) 100 03/28/20 06:00 24 Mechanical Ventilator 50 03/28/20 06:00 120/68 03/28/20 06:00 88 24 120/68 (85) 100 03/28/20 05:36 115/57 03/28/20 05:00 89 24 115/57 (76) 97 03/28/20 05:00 24 Mechanical Ventilator 50 03/28/20 05:00 115/57 03/28/20 04:00 86 03/28/20 04:00 98.0 86 24 125/53 (77) 98 03/28/20 04:00 24 Mechanical Ventilator 50 03/28/20 04:00 125/53 03/28/20 04:00 Mechanical Ventilator Mechanical Ventilator 03/28/20 04:00 50 03/28/20 03:32 86 24 50 03/28/20 03:00 24 Mechanical Ventilator 50 03/28/20 03:00 153/68 03/28/20 03:00 85 24 143/69 (93) 100 03/28/20 02:44 110/55 03/28/20 02:00 87 24 110/55 (73) 100 03/28/20 02:00 24 Mechanical Ventilator 50 03/28/20 02:00 110/55 03/28/20 01:00 86 24 115/60 (78) 100 03/28/20 01:00 24 Mechanical Ventilator 50 03/28/20 01:00 115/60 03/28/20 00:00 98.8 84 24 130/66 (87) 100 03/28/20 00:00 84 03/28/20 00:00 24 Mechanical Ventilator 50 03/28/20 00:00 24 Mechanical Ventilator 50 03/28/20 00:00 122/84 03/28/20 00:00 122/84 03/28/20 00:00 50 03/28/20 00:00 Mechanical Ventilator Mechanical Ventilator 03/27/20 23:51 84 24 50 03/27/20 23:00 85 24 117/62 (80) 100 03/27/20 23:00 24 Mechanical Ventilator 50 03/27/20 23:00 126/65 03/27/20 22:56 24 Mechanical Ventilator 50 03/27/20 22:30 110/56 03/27/20 22:15 102/50 03/27/20 22:00 24 Mechanical Ventilator 50 03/27/20 22:00 94/44 03/27/20 22:00 87 24 94/46 (62) 100 03/27/20 21:30 24 Mechanical Ventilator 50 03/27/20 21:30 94/47 03/27/20 21:00 83 24 104/54 (71) 100 03/27/20 21:00 24 Mechanical Ventilator 50 03/27/20 21:00 100/51 03/27/20 20:00 82 03/27/20 20:00 Mechanical Ventilator Mechanical Ventilator 03/27/20 20:00 50 03/27/20 20:00 99/48 03/27/20 20:00 97.7 82 24 113/60 (77) 100 03/27/20 19:54 82 24 50 03/27/20 19:45 82 24 112/58 (76) 100 03/27/20 19:30 83 24 107/55 (72) 100 03/27/20 19:15 84 24 105/54 (71) 100 03/27/20 19:00 24 Endotracheal Tube 50 03/27/20 19:00 89/47 03/27/20 19:00 86 24 89/47 (61) 99 03/27/20 18:30 85 24 88/45 (59) 99 03/27/20 18:07 91/50 03/27/20 18:00 84 24 91/50 (64) 98 03/27/20 18:00 24 Endotracheal Tube 50 03/27/20 18:00 86/44 03/27/20 17:30 83 25 91/44 (60) 100 03/27/20 17:00 82 24 99/54 (69) 100 03/27/20 17:00 24 Endotracheal Tube 50 03/27/20 17:00 101/53 03/27/20 16:30 82 24 102/57 (72) 100 03/27/20 16:00 97.2 82 24 100/56 (71) 100 03/27/20 16:00 Mechanical Ventilator Mechanical Ventilator 03/27/20 16:00 40 03/27/20 16:00 23 Endotracheal Tube 50 03/27/20 16:00 82/46 03/27/20 15:30 85 24 94/46 (62) 100 03/27/20 15:29 84 03/27/20 15:15 86 24 50 03/27/20 15:00 24 Endotracheal Tube 50 03/27/20 15:00 127/63 03/27/20 15:00 87 24 91/45 (60) 92 03/27/20 14:30 99.3 86 24 97/51 (66) 92 03/27/20 14:01 102/50 03/27/20 14:00 24 Endotracheal Tube 35 03/27/20 14:00 102/50 03/27/20 14:00 85 24 104/55 (71) 93 03/27/20 13:30 83 24 107/62 (77) 95 03/27/20 13:00 24 Endotracheal Tube 35 03/27/20 13:00 105/60 03/27/20 13:00 83 24 105/60 (75) 96 03/27/20 12:30 84 24 117/68 (84) 97 03/27/20 12:00 40 03/27/20 12:00 24 Endotracheal Tube 35 03/27/20 12:00 104/64 03/27/20 12:00 98.2 85 24 109/64 (79) 96 03/27/20 12:00 Mechanical Ventilator Mechanical Ventilator Intake and Output 03/28/20 03/29/20 19:00 07:00 Intake Total 2871.799 ml 2581.33632 ml Output Total 1180 ml 725 ml Balance 1691.799 ml 1856.62169 ml Free Water 300 ml 150 ml IV Total 1821.799 ml 1831.00289 ml Tube Feeding 570 ml 600 ml Other 180 ml Output Urine Total 1180 ml 675 ml Stool Total 50 ml Labs Test 03/27/20 04:46 03/27/20 08:05 03/27/20 17:12 03/28/20 05:09 White Blood Count 18.0 K/UL (4.8-10.8) 22.5 K/UL (4.8-10.8) Red Blood Count 2.95 M/UL (4.20-5.40) 2.74 M/UL (4.20-5.40) Hemoglobin 10.3 G/DL (12.0-16.0) 9.8 G/DL (12.0-16.0) Hematocrit 32.4 % (37.0-47.0) 30.6 % (37.0-47.0) Mean Corpuscular Volume 110 FL (80-99) 112 FL (80-99) Mean Corpuscular Hemoglobin 34.8 PG (27.0-31.0) 35.8 PG (27.0-31.0) Mean Corpuscular Hemoglobin Concent 31.7 G/DL (32.0-36.0) 32.1 G/DL (32.0-36.0) Red Cell Distribution Width 22.7 % (11.6-14.8) 22.4 % (11.6-14.8) Platelet Count 154 K/UL (150-450) 140 K/UL (150-450) Mean Platelet Volume 6.9 FL (6.5-10.1) 7.1 FL (6.5-10.1) Neutrophils (%) (Auto) % (45.0-75.0) % (45.0-75.0) Lymphocytes (%) (Auto) % (20.0-45.0) % (20.0-45.0) Monocytes (%) (Auto) % (1.0-10.0) % (1.0-10.0) Eosinophils (%) (Auto) % (0.0-3.0) % (0.0-3.0) Basophils (%) (Auto) % (0.0-2.0) % (0.0-2.0) Differential Total Cells Counted 100 100 Neutrophils % (Manual) 83 % (45-75) 87 % (45-75) Lymphocytes % (Manual) 8 % (20-45) 5 % (20-45) Monocytes % (Manual) 9 % (1-10) 7 % (1-10) Eosinophils % (Manual) 0 % (0-3) 1 % (0-3) Basophils % (Manual) 0 % (0-2) 0 % (0-2) Band Neutrophils 0 % (0-8) 0 % (0-8) Nucleated Red Blood Cells 3 /100 WBC Platelet Estimate Adequate Decreased Platelet Morphology Normal Normal Hypochromasia 1+ Anisocytosis 3+ 2+ Macrocytosis 2+ 2+ Sodium Level 171 MMOL/L (136-145) 160 MMOL/L (136-145) Potassium Level 3.6 MMOL/L (3.5-5.1) 4.3 MMOL/L (3.5-5.1) Chloride Level 122 MMOL/L (98-107) 117 MMOL/L (98-107) Carbon Dioxide Level > 45 MMOL/L (21-32) 44 MMOL/L (21-32) Blood Urea Nitrogen 29 mg/dL (7-18) 38 mg/dL (7-18) Creatinine 0.8 MG/DL (0.55-1.30) 0.9 MG/DL (0.55-1.30) Estimat Glomerular Filtration Rate > 60 mL/min (>60) > 60 mL/min (>60) Glucose Level 304 MG/DL (74-106) 446 MG/DL (74-106) Uric Acid 5.7 MG/DL (2.6-7.2) 5.5 MG/DL (2.6-7.2) Calcium Level 9.5 MG/DL (8.5-10.1) 9.4 MG/DL (8.5-10.1) Phosphorus Level 3.7 MG/DL (2.5-4.9) 4.1 MG/DL (2.5-4.9) Magnesium Level 3.0 MG/DL (1.8-2.4) 2.9 MG/DL (1.8-2.4) Total Bilirubin 2.3 MG/DL (0.2-1.0) 1.8 MG/DL (0.2-1.0) Direct Bilirubin 1.6 MG/DL (0.0-0.3) 1.1 MG/DL (0.0-0.3) Aspartate Amino Transf (AST/SGOT) 261 U/L (15-37) 354 U/L (15-37) Alanine Aminotransferase (ALT/SGPT) 210 U/L (12-78) 296 U/L (12-78) Alkaline Phosphatase 200 U/L (46-116) 279 U/L (46-116) Ammonia 65 umol/L (11-32) 75 umol/L (11-32) C-Reactive Protein, Quantitative 2.6 mg/dL (0.00-0.90) 2.1 mg/dL (0.00-0.90) Pro-B-Type Natriuretic Peptide 4916 pg/mL (0-125) 1806 pg/mL (0-125) Total Protein 7.4 G/DL (6.4-8.2) 7.0 G/DL (6.4-8.2) Albumin 2.4 G/DL (3.4-5.0) 2.3 G/DL (3.4-5.0) Globulin 5.0 g/dL 4.7 g/dL Albumin/Globulin Ratio 0.5 (1.0-2.7) 0.5 (1.0-2.7) Thyroid Stimulating Hormone (TSH) 3.769 uiU/mL (0.358-3.740) Arterial Blood pH 7.402 (7.350-7.450) 7.380 (7.350-7.450) Arterial Blood Partial Pressure CO2 75.4 mmHg (35.0-45.0) 77.8 mmHg (35.0-45.0) Arterial Blood Partial Pressure O2 72.1 mmHg (75.0-100.0) 101.9 mmHg (75.0-100.0) Arterial Blood HCO3 45.9 mmol/L (22.0-26.0) 45.0 mmol/L (22.0-26.0) Arterial Blood Oxygen Saturation 92.1 % (95-100) 96.4 % (95-100) Arterial Blood Base Excess 18.0 (-2-2) 17.0 (-2-2) Joaquin Test Positive Positive Gamma Glutamyl Transpeptidase 599 U/L (5-85) Total Creatine Kinase 62 U/L (26-308) Test 03/29/20 04:05 03/29/20 08:05 White Blood Count 26.4 K/UL (4.8-10.8) Red Blood Count 2.85 M/UL (4.20-5.40) Hemoglobin 10.1 G/DL (12.0-16.0) Hematocrit 31.7 % (37.0-47.0) Mean Corpuscular Volume 111 FL (80-99) Mean Corpuscular Hemoglobin 35.3 PG (27.0-31.0) Mean Corpuscular Hemoglobin Concent 31.7 G/DL (32.0-36.0) Red Cell Distribution Width 22.1 % (11.6-14.8) Platelet Count 135 K/UL (150-450) Mean Platelet Volume 7.5 FL (6.5-10.1) Neutrophils (%) (Auto) % (45.0-75.0) Lymphocytes (%) (Auto) % (20.0-45.0) Monocytes (%) (Auto) % (1.0-10.0) Eosinophils (%) (Auto) % (0.0-3.0) Basophils (%) (Auto) % (0.0-2.0) Differential Total Cells Counted 100 Neutrophils % (Manual) 88 % (45-75) Lymphocytes % (Manual) 3 % (20-45) Monocytes % (Manual) 9 % (1-10) Eosinophils % (Manual) 0 % (0-3) Basophils % (Manual) 0 % (0-2) Band Neutrophils 0 % (0-8) Platelet Estimate Decreased Platelet Morphology Normal Hypochromasia 1+ Anisocytosis 3+ Macrocytosis 2+ Sodium Level 154 MMOL/L (136-145) Potassium Level 4.4 MMOL/L (3.5-5.1) Chloride Level 110 MMOL/L (98-107) Carbon Dioxide Level 43 MMOL/L (21-32) Anion Gap 0 mmol/L (5-15) Blood Urea Nitrogen 48 mg/dL (7-18) Creatinine 0.9 MG/DL (0.55-1.30) Estimat Glomerular Filtration Rate > 60 mL/min (>60) Glucose Level 402 MG/DL (74-106) Uric Acid 5.9 MG/DL (2.6-7.2) Calcium Level 9.6 MG/DL (8.5-10.1) Phosphorus Level 3.4 MG/DL (2.5-4.9) Magnesium Level 2.7 MG/DL (1.8-2.4) Total Bilirubin 1.8 MG/DL (0.2-1.0) Direct Bilirubin 1.1 MG/DL (0.0-0.3) Aspartate Amino Transf (AST/SGOT) 356 U/L (15-37) Alanine Aminotransferase (ALT/SGPT) 269 U/L (12-78) Alkaline Phosphatase 341 U/L (46-116) Total Protein 6.6 G/DL (6.4-8.2) Albumin 2.2 G/DL (3.4-5.0) Globulin 4.4 g/dL Albumin/Globulin Ratio 0.5 (1.0-2.7) Arterial Blood pH 7.371 (7.350-7.450) Arterial Blood Partial Pressure CO2 73.5 mmHg (35.0-45.0) Arterial Blood Partial Pressure O2 64.5 mmHg (75.0-100.0) Arterial Blood HCO3 41.6 mmol/L (22.0-26.0) Arterial Blood Oxygen Saturation 87.9 % (95-100) Arterial Blood Base Excess 14 (-2-2) Joaquin Test N/a Height (Feet): 5 Height (Inches): 1.00 Weight (Pounds): 225 Objective Physical Exam: Vitals: reviewed General: NAD HEENT: nc, at++ngt Neck: supple Chest: crackles b/l, mech breath sounds ++intubated Cardiovascular: RRR, no s3, s4 EXT ++ Significant edema and erythema bilateral lower extremity, patient also has blistering on both feet Neurologic: sedated Skin: other - As above Brett Mcclain MD March 29, 2020 11:53
[2020-03-29] MEDS: Meropenem 1 GM in NS 55 ML IVPB SCH ×2 (12:16→21:19)
[2020-03-29 13:07] LABS: APPEARANCE,URINE CLOUDY; BILIRUBIN, URINE NEGATIVE (NEGATIVE); GLUCOSE, URINE (UA) NEGATIVE (NEGATIVE); KETONES,URINE NEGATIVE (NEGATIVE); LEUKOCYTE ESTERASE ,URINE 2+ (NEGATIVE); NITRITE,URINE NEGATIVE (NEGATIVE); PH,URINE 5 (4.5-8.0); PROTEIN,URINE NEGATIVE (NEGATIVE); UROBILINOGEN,URINE NORMAL MG/DL (0.0-1.0)
[2020-03-29 13:11] LABS: COLOR,URINE YELLOW
--- NOTE | 2020-03-29 17:41 | Pulmonolgy Critical Care Note ---
Critical Care - Asmt/Plan Assessment/Plan: Pulmonary CCM Progress Note HPI Patient is a 59 year old woman with significant obesity, admitted with bilateral lower extremity cellulitis, had complained of increased swelling and redness to both of her feet and legs Had elevated BNP on admission, persistent edema since admission, worsening hypoxia, LE DVT (right) negative for DVT. Patient had previous hospitalizations for cellulitis, PMH Hypothyroidism, Obesity, Cirrhosis, Anemia, Anxiety, Cellulitis Significant Neurological deterioration noted today COVID 19 positive, Pneumonia VQ no significant perfusion abnormality, prev LE dupplex negative on one leg High D Dimer level, on Lovenox treatment dose Being diuresedPRN, slightly inproving infiltrates on CXR, on ACVC, did not tolerating Proning Some improvement in PaO2/FIO2, VC settings adjusted, P 10, FIO2 40-50%, has increased PaCO2 which is increasing Renal following Hypothyroidism, elevated glucose, Endocrine following Awaiting Remdasovir, [facility] - Remdesavir requested for when available, [facility] - not available as yet Received IL6 inhibitor inititial dose (4mg/Kg - all that was available), subsequent dose pending, on steroids - being weaned 20 mg daily Seen earlier Allergies: No Known Allergies Past Medical History: Obesity, Cirrhosis, Anemia, Anxiety, Cellulitis, Hypothyroidism All Other Systems: negative except mentioned in HPI Physical Exam Vital Signs Noted General Appearance: Obese, non reative despite no sedation,intubated Head: normocephalic, atraumatic Eyes: pupils dilated and non responsive to light bilaterally, bilateral eye EOMI ENT: moist MM, no LN Respiratory: Bilateral crackles, bilateral rhonchi, not overbreathing the ventilator Cardiovascular: regular rate, rhythm, HS1, HS2 RRR Gastrointestinal: Obese, soft non tender, ND Musculoskeletal: Mild to moderate edema and erythema bilateral lower extremity , patient has crusting on both feet, Neurologic: sedated, no focal signs noted, no seizures, no response to pain Impression: Covid Pneumonia, s/p IL6 inhibitor, sp Hydroxychloroquine, Ivermectin Improving infiltrates and hypoxia, worsening PCO2 Bilateral dilated non reactive pupils, patient unresponsive despite no sedation Not triggering ventilator No response to pain Increased WCC - possible secondary to steroids Bilateral Lower Extremity Cellulitis Elevated NPA, severe bilateral edema - improving Cirrhosis, elevated transaminases/ammonia Splenomegaly Anemia Anxiety Hyponatremia Hypothyroidism Plan [facility] PMD - stat Neurology Consultation IV Antibiotics per ID On trial of steroids - currently 20 mg daily, being weaned, s/p IL6 inhibitor Diurese as tolerated, note persistently elevated BNP Surgery following for wounds Hematology following for anemia, observing for Neutropenia/thrombocytopenia Diuresed previously Renal following for hypernatremia Endocrine following for Hypothyroidism, on ISS Monitor labs Bronchodilators PPX - SCD AC VC Proning PRN Supplement electrolytes PRN Albuterol PRN [employer]I [employer] Medications Previously d/w Patients daughter Tri - discussed grave prognosis, suggested DNAR - will consider Case d/w MARIA TERESA, RN Previously [facility] - Remdesavir ordered, awaiting supply, awaiting next dose on IL6 inhibitor once supply available Labs Noted Chest X-Ray: Cardiomegaly, left lower lobe atelectasis versus effusion, worsening infiltrates/congestion Subjective ROS Limited/Unobtainable: No Constitutional: Reports: no symptoms Gastrointestinal/Abdominal: Reports: no symptoms Musculoskeletal: Reports: other - SOB Allergies: Coded Allergies: No Known Allergies (Unverified , 02/29/20) ICU time 50 minutes Critical Care - Objective Last 24 Hour Vital Signs Date Time Temp Pulse Resp B/P (MAP) Pulse Ox O2 Delivery O2 Flow Rate FiO2 03/29/20 17:00 83 24 134/49 (77) 96 03/29/20 17:00 134/49 03/29/20 16:15 86 24 107/45 (65) 93 03/29/20 16:00 86 03/29/20 16:00 97.9 87 24 114/49 (70) 93 03/29/20 16:00 114/49 03/29/20 16:00 60 03/29/20 16:00 Mechanical Ventilator Mechanical Ventilator 03/29/20 15:45 86 24 120/54 (76) 93 03/29/20 15:31 130/57 03/29/20 15:30 86 24 129/56 (80) 94 03/29/20 15:15 90 29 130/57 (81) 83 03/29/20 15:07 86 24 60 03/29/20 15:00 83 24 124/58 (80) 94 03/29/20 15:00 124/58 03/29/20 14:30 82 24 137/74 (95) 93 03/29/20 14:00 82 24 149/63 (91) 94 03/29/20 14:00 149/63 5/13/20 13:30 83 24 146/56 (86) 94 03/29/20 13:00 128/62 03/29/20 13:00 84 24 128/62 (84) 94 03/29/20 12:30 85 24 135/75 (95) 100 03/29/20 12:16 122/53 03/29/20 12:00 Mechanical Ventilator Mechanical Ventilator 03/29/20 12:00 88 03/29/20 12:00 97.7 85 24 122/53 (76) 93 03/29/20 12:00 122/53 03/29/20 11:30 88 24 104/43 (63) 90 03/29/20 11:00 101/47 03/29/20 11:00 86 24 101/47 (65) 92 03/29/20 10:58 86 24 60 03/29/20 10:30 84 24 104/45 (64) 93 03/29/20 10:00 112/42 03/29/20 10:00 82 24 112/42 (65) 95 03/29/20 09:30 82 24 110/39 (62) 96 03/29/20 09:10 109/44 03/29/20 09:01 60 03/29/20 09:00 83 24 109/44 (65) 97 03/29/20 09:00 109/44 03/29/20 08:30 84 25 82/34 (50) 97 03/29/20 08:30 60 03/29/20 08:00 99.1 88 24 86/47 (60) 94 03/29/20 08:00 50 03/29/20 08:00 86/47 03/29/20 08:00 87 03/29/20 08:00 Mechanical Ventilator Mechanical Ventilator 03/29/20 07:30 92 24 107/48 (67) 94 03/29/20 07:07 92 24 50 03/29/20 07:00 86 24 89/47 (61) 88 03/29/20 07:00 102/54 03/29/20 06:45 82 24 102/54 (70) 94 03/29/20 06:30 82 24 105/52 (69) 95 03/29/20 06:15 82 24 107/54 (71) 95 03/29/20 06:00 107/54 03/29/20 06:00 82 24 111/60 (77) 95 03/29/20 05:45 83 24 110/57 (74) 95 03/29/20 05:30 131/59 03/29/20 05:30 84 24 131/59 (83) 96 03/29/20 05:15 83 24 96/50 (65) 96 03/29/20 05:13 127/64 03/29/20 05:00 86 24 127/64 (85) 95 03/29/20 05:00 96/50 03/29/20 04:45 87 24 116/65 (82) 94 03/29/20 04:30 88 24 112/54 (73) 93 03/29/20 04:15 89 24 112/55 (74) 93 03/29/20 04:00 117/55 03/29/20 04:00 50 03/29/20 04:00 98.5 88 24 117/55 (75) 94 03/29/20 04:00 Mechanical Ventilator Mechanical Ventilator 03/29/20 03:55 88 24 50 03/29/20 03:45 87 24 120/60 (80) 94 03/29/20 03:30 86 24 126/64 (84) 94 03/29/20 03:20 84 24 112/55 (74) 94 03/29/20 03:17 83 25 76/60 (65) 95 03/29/20 03:15 76/55 03/29/20 03:15 83 26 89/43 (58) 100 03/29/20 03:01 81 03/29/20 03:00 101/50 03/29/20 03:00 82 24 101/50 (67) 99 03/29/20 02:45 81 24 99/54 (69) 100 03/29/20 02:30 81 24 110/47 (68) 100 03/29/20 02:15 81 24 109/62 (78) 100 03/29/20 02:00 110/57 03/29/20 02:00 81 24 110/57 (74) 100 03/29/20 01:45 82 24 116/56 (76) 100 03/29/20 01:35 113/54 03/29/20 01:30 82 24 113/54 (73) 100 03/29/20 01:15 83 24 111/53 (72) 100 03/29/20 01:00 83 24 108/57 (74) 100 03/29/20 01:00 111/53 03/29/20 00:45 84 24 108/54 (72) 100 03/29/20 00:30 85 24 115/56 (75) 100 03/29/20 00:15 85 24 106/54 (71) 99 03/29/20 00:00 98.3 86 24 103/51 (68) 99 03/29/20 00:00 106/54 03/29/20 00:00 Mechanical Ventilator Mechanical Ventilator 03/29/20 00:00 50 03/28/20 23:45 87 24 100/54 (69) 98 03/28/20 23:37 88 24 91/49 (63) 98 03/28/20 23:30 88 24 91/47 (62) 98 03/28/20 23:19 88 03/28/20 23:15 88 24 94/53 (67) 99 03/28/20 23:11 87 24 50 03/28/20 23:00 87 24 106/56 (73) 99 03/28/20 23:00 94/53 03/28/20 22:45 86 24 111/61 (78) 99 03/28/20 22:30 24 106/56 Mechanical Ventilator 50 03/28/20 22:30 85 24 113/60 (77) 99 03/28/20 22:15 85 24 124/63 (83) 99 03/28/20 22:00 124/63 03/28/20 22:00 85 24 126/64 (84) 98 03/28/20 21:51 89 24 81/47 (58) 95 03/28/20 21:45 90 24 66/47 (53) 95 03/28/20 21:30 84 24 129/53 (78) 99 03/28/20 21:30 126/64 03/28/20 21:15 85 24 132/64 (86) 100 03/28/20 21:00 85 24 132/59 (83) 100 03/28/20 21:00 132/64 03/28/20 20:45 85 24 128/64 (85) 100 03/28/20 20:30 85 24 122/67 (85) 100 03/28/20 20:15 86 24 122/64 (83) 100 5/12/20 20:00 50 03/28/20 20:00 98.0 87 24 120/64 (82) 100 03/28/20 20:00 Mechanical Ventilator Mechanical Ventilator 03/28/20 20:00 126/64 03/28/20 19:45 88 24 120/63 (82) 100 03/28/20 19:42 88 24 50 03/28/20 19:29 89 03/28/20 19:00 108/59 03/28/20 19:00 89 24 108/59 (75) 99 03/28/20 18:30 88 24 122/62 (82) 99 03/28/20 18:00 87 24 118/56 (76) 99 03/28/20 18:00 118/56 03/28/20 17:42 153/69 Accucheck: 241 Critical Care - Subjective ROS Limited/Unobtainable: No FI02: 60 Vent Support Breath Rate: 24 Vent Support Mode: AC Vent Tidal Volume: 400 Sputum Amount: Small PEEP: 10.0 PIP: 29 Tube Feeding Amount: 50 I&O: Intake and Output 03/28/20 03/29/20 19:00 07:00 Intake Total 2871.799 ml 2581.50477 ml Output Total 1180 ml 725 ml Balance 1691.799 ml 1856.55465 ml Free Water 300 ml 150 ml IV Total 1821.799 ml 1831.07999 ml Tube Feeding 570 ml 600 ml Other 180 ml Output Urine Total 1180 ml 675 ml Stool Total 50 ml ET-Tube: 7.5 ET Position: 21 Doron Carrillo MD March 29, 2020 17:41
--- NOTE | 2020-03-29 20:49 | Surgery Progress Note ---
Surgery Progress Note Subjective Additional Comments on support on pressors ill appearing off sedation and not responsive Objective Last 24 Hour Vital Signs Date Time Temp Pulse Resp B/P (MAP) Pulse Ox O2 Delivery O2 Flow Rate FiO2 03/29/20 20:30 83 24 110/54 (72) 97 03/29/20 20:15 83 24 125/50 (75) 97 03/29/20 20:00 97.7 83 24 131/50 (77) 98 03/29/20 20:00 Mechanical Ventilator Mechanical Ventilator 03/29/20 20:00 60 03/29/20 19:45 83 24 129/58 (81) 97 03/29/20 19:30 84 24 132/50 (77) 97 03/29/20 19:15 84 24 130/49 (76) 97 03/29/20 19:08 84 24 60 03/29/20 19:00 128/48 03/29/20 19:00 84 24 128/48 (74) 96 03/29/20 18:30 84 24 120/43 (68) 96 03/29/20 18:19 112/51 03/29/20 18:00 99/46 03/29/20 18:00 83 24 99/46 (63) 95 03/29/20 17:00 83 24 134/49 (77) 96 03/29/20 17:00 134/49 03/29/20 16:15 86 24 107/45 (65) 93 03/29/20 16:00 86 03/29/20 16:00 97.9 87 24 114/49 (70) 93 03/29/20 16:00 114/49 03/29/20 16:00 60 03/29/20 16:00 Mechanical Ventilator Mechanical Ventilator 03/29/20 15:45 86 24 120/54 (76) 93 03/29/20 15:31 130/57 03/29/20 15:30 86 24 129/56 (80) 94 03/29/20 15:15 90 29 130/57 (81) 83 03/29/20 15:07 86 24 60 03/29/20 15:00 83 24 124/58 (80) 94 03/29/20 15:00 124/58 03/29/20 14:30 82 24 137/74 (95) 93 03/29/20 14:00 82 24 149/63 (91) 94 03/29/20 14:00 149/63 03/29/20 13:30 83 24 146/56 (86) 94 03/29/20 13:00 128/62 03/29/20 13:00 84 24 128/62 (84) 94 03/29/20 12:30 85 24 135/75 (95) 100 03/29/20 12:16 122/53 03/29/20 12:00 Mechanical Ventilator Mechanical Ventilator 03/29/20 12:00 88 03/29/20 12:00 97.7 85 24 122/53 (76) 93 03/29/20 12:00 122/53 03/29/20 11:30 88 24 104/43 (63) 90 03/29/20 11:00 101/47 03/29/20 11:00 86 24 101/47 (65) 92 03/29/20 10:58 86 24 60 03/29/20 10:30 84 24 104/45 (64) 93 03/29/20 10:00 112/42 03/29/20 10:00 82 24 112/42 (65) 95 03/29/20 09:30 82 24 110/39 (62) 96 03/29/20 09:10 109/44 03/29/20 09:01 60 03/29/20 09:00 83 24 109/44 (65) 97 03/29/20 09:00 109/44 03/29/20 08:30 84 25 82/34 (50) 97 03/29/20 08:30 60 03/29/20 08:00 99.1 88 24 86/47 (60) 94 03/29/20 08:00 50 03/29/20 08:00 86/47 03/29/20 08:00 87 03/29/20 08:00 Mechanical Ventilator Mechanical Ventilator 03/29/20 07:30 92 24 107/48 (67) 94 03/29/20 07:07 92 24 50 03/29/20 07:00 86 24 89/47 (61) 88 03/29/20 07:00 102/54 03/29/20 06:45 82 24 102/54 (70) 94 03/29/20 06:30 82 24 105/52 (69) 95 03/29/20 06:15 82 24 107/54 (71) 95 03/29/20 06:00 107/54 03/29/20 06:00 82 24 111/60 (77) 95 03/29/20 05:45 83 24 110/57 (74) 95 03/29/20 05:30 131/59 03/29/20 05:30 84 24 131/59 (83) 96 03/29/20 05:15 83 24 96/50 (65) 96 03/29/20 05:13 127/64 03/29/20 05:00 86 24 127/64 (85) 95 03/29/20 05:00 96/50 03/29/20 04:45 87 24 116/65 (82) 94 03/29/20 04:30 88 24 112/54 (73) 93 03/29/20 04:15 89 24 112/55 (74) 93 03/29/20 04:00 117/55 03/29/20 04:00 50 03/29/20 04:00 98.5 88 24 117/55 (75) 94 03/29/20 04:00 Mechanical Ventilator Mechanical Ventilator 03/29/20 03:55 88 24 50 03/29/20 03:45 87 24 120/60 (80) 94 03/29/20 03:30 86 24 126/64 (84) 94 03/29/20 03:20 84 24 112/55 (74) 94 03/29/20 03:17 83 25 76/60 (65) 95 03/29/20 03:15 76/55 03/29/20 03:15 83 26 89/43 (58) 100 03/29/20 03:01 81 03/29/20 03:00 101/50 03/29/20 03:00 82 24 101/50 (67) 99 03/29/20 02:45 81 24 99/54 (69) 100 03/29/20 02:30 81 24 110/47 (68) 100 03/29/20 02:15 81 24 109/62 (78) 100 03/29/20 02:00 110/57 03/29/20 02:00 81 24 110/57 (74) 100 03/29/20 01:45 82 24 116/56 (76) 100 03/29/20 01:35 113/54 03/29/20 01:30 82 24 113/54 (73) 100 03/29/20 01:15 83 24 111/53 (72) 100 03/29/20 01:00 83 24 108/57 (74) 100 03/29/20 01:00 111/53 03/29/20 00:45 84 24 108/54 (72) 100 03/29/20 00:30 85 24 115/56 (75) 100 03/29/20 00:15 85 24 106/54 (71) 99 03/29/20 00:00 98.3 86 24 103/51 (68) 99 03/29/20 00:00 106/54 03/29/20 00:00 Mechanical Ventilator Mechanical Ventilator 03/29/20 00:00 50 03/28/20 23:45 87 24 100/54 (69) 98 03/28/20 23:37 88 24 91/49 (63) 98 03/28/20 23:30 88 24 91/47 (62) 98 03/28/20 23:19 88 03/28/20 23:15 88 24 94/53 (67) 99 03/28/20 23:11 87 24 50 03/28/20 23:00 87 24 106/56 (73) 99 03/28/20 23:00 94/53 03/28/20 22:45 86 24 111/61 (78) 99 03/28/20 22:30 24 106/56 Mechanical Ventilator 50 03/28/20 22:30 85 24 113/60 (77) 99 03/28/20 22:15 85 24 124/63 (83) 99 03/28/20 22:00 124/63 03/28/20 22:00 85 24 126/64 (84) 98 03/28/20 21:51 89 24 81/47 (58) 95 03/28/20 21:45 90 24 66/47 (53) 95 03/28/20 21:30 84 24 129/53 (78) 99 03/28/20 21:30 126/64 03/28/20 21:15 85 24 132/64 (86) 100 03/28/20 21:00 85 24 132/59 (83) 100 03/28/20 21:00 132/64 I&O Intake and Output 03/28/20 03/29/20 19:00 07:00 Intake Total 2871.799 ml 2581.44292 ml Output Total 1180 ml 725 ml Balance 1691.799 ml 1856.54266 ml Free Water 300 ml 150 ml IV Total 1821.799 ml 1831.72090 ml Tube Feeding 570 ml 600 ml Other 180 ml Output Urine Total 1180 ml 675 ml Stool Total 50 ml Wound: dry Cardiovascular: RSR Respiratory: decreased breath sounds Abdomen: soft, decreased bowel sounds Extremities: edema, no cyanosis Laboratory Tests Test 03/29/20 04:05 03/29/20 08:05 03/29/20 12:30 White Blood Count 26.4 K/UL (4.8-10.8) *H Red Blood Count 2.85 M/UL (4.20-5.40) L Hemoglobin 10.1 G/DL (12.0-16.0) L Hematocrit 31.7 % (37.0-47.0) L Mean Corpuscular Volume 111 FL (80-99) H Mean Corpuscular Hemoglobin 35.3 PG (27.0-31.0) H Mean Corpuscular Hemoglobin Concent 31.7 G/DL (32.0-36.0) L Red Cell Distribution Width 22.1 % (11.6-14.8) H Platelet Count 135 K/UL (150-450) L Mean Platelet Volume 7.5 FL (6.5-10.1) Neutrophils (%) (Auto) % (45.0-75.0) Lymphocytes (%) (Auto) % (20.0-45.0) Monocytes (%) (Auto) % (1.0-10.0) Eosinophils (%) (Auto) % (0.0-3.0) Basophils (%) (Auto) % (0.0-2.0) Differential Total Cells Counted 100 Neutrophils % (Manual) 88 % (45-75) H Lymphocytes % (Manual) 3 % (20-45) L Monocytes % (Manual) 9 % (1-10) Eosinophils % (Manual) 0 % (0-3) Basophils % (Manual) 0 % (0-2) Band Neutrophils 0 % (0-8) Platelet Estimate Decreased L Platelet Morphology Normal Hypochromasia 1+ Anisocytosis 3+ Macrocytosis 2+ Sodium Level 154 MMOL/L (136-145) H Potassium Level 4.4 MMOL/L (3.5-5.1) Chloride Level 110 MMOL/L (98-107) H Carbon Dioxide Level 43 MMOL/L (21-32) *H Anion Gap 0 mmol/L (5-15) L Blood Urea Nitrogen 48 mg/dL (7-18) H Creatinine 0.9 MG/DL (0.55-1.30) Estimat Glomerular Filtration Rate > 60 mL/min (>60) Glucose Level 402 MG/DL (74-106) H Uric Acid 5.9 MG/DL (2.6-7.2) Calcium Level 9.6 MG/DL (8.5-10.1) Phosphorus Level 3.4 MG/DL (2.5-4.9) Magnesium Level 2.7 MG/DL (1.8-2.4) H Total Bilirubin 1.8 MG/DL (0.2-1.0) H Direct Bilirubin 1.1 MG/DL (0.0-0.3) H Aspartate Amino Transf (AST/SGOT) 356 U/L (15-37) H Alanine Aminotransferase (ALT/SGPT) 269 U/L (12-78) H Alkaline Phosphatase 341 U/L (46-116) H Total Protein 6.6 G/DL (6.4-8.2) Albumin 2.2 G/DL (3.4-5.0) L Globulin 4.4 g/dL Albumin/Globulin Ratio 0.5 (1.0-2.7) L Arterial Blood pH 7.371 (7.350-7.450) Arterial Blood Partial Pressure CO2 73.5 mmHg (35.0-45.0) *H Arterial Blood Partial Pressure O2 64.5 mmHg (75.0-100.0) L Arterial Blood HCO3 41.6 mmol/L (22.0-26.0) *H Arterial Blood Oxygen Saturation 87.9 % (95-100) *L Arterial Blood Base Excess 14 (-2-2) *H [place] Test N/a Urine Color Yellow Urine Appearance Cloudy Urine pH 5 (4.5-8.0) Urine Specific [place] 1.010 (1.005-1.035) Urine Protein Negative (NEGATIVE) Urine Glucose (UA) Negative (NEGATIVE) Urine Ketones Negative (NEGATIVE) Urine Blood 1+ (NEGATIVE) H Urine Nitrite Negative (NEGATIVE) Urine Bilirubin Negative (NEGATIVE) Urine Urobilinogen Normal MG/DL (0.0-1.0) Urine Leukocyte Esterase 2+ (NEGATIVE) H Urine RBC 0-2 /HPF (0 - 2) Urine WBC 0-2 /HPF (0 - 2) Urine Squamous Epithelial Cells Few /LPF (NONE/OCC) Urine Bacteria Occasional /HPF (NONE) Urine Yeast Many /HPF (NONE) H Plan Problems: (1) Cellulitis Assessment & Plan: bilateral lower extremity cellulitis / edema chronic venous status changes dermatitis no abscess no purulent drainage ulcerations forming. keep lower extremity elevated while in bed apply skin protectant / moisturizing cream daily okay to shower okay to wrap soft after cream abx as per ID for cellulitis okay for diet duplex ordered trend labs will follow with recs thank you No evidence of deep venous thrombosis involving the visualized veins of the RIGHT lower extremity. refused eval of left COVID ++ cxr noted cont current supportive care improving labs stable improving slowly wean pressors as tolerated Patient is acutely worsened intubated on vent support 2 pressors now worsening labs worsening Prognosis is guarded we will continue with maximal support efforts weaning vent weaning pressors leukocytosis trend lft's Diffuse bilateral interstitial and airspace opacities (2) COVID-19 Assessment & Plan: see above Theron Sotomayor March 29, 2020 20:48
[2020-03-29] MEDS: Dyna-Hex 2% Top Sol 2oz TOPIC SCH (21:18)
--- NOTE | 2020-03-29 21:27 | General Progress Note ---
Assessment/Plan Problem List: (1) Cellulitis ICD Codes: L03.90 - Cellulitis, unspecified SNOMED: [id number] Qualifiers: Qualified Codes: L03.119 - Cellulitis of unspecified part of limb Status: unchanged, deteriorating Assessment/Plan: hypernatrmia very dehydrated arf pupils dilated.consulted dr luis resp failure renal failure covid positvie sepsis metabolic conctraction cellulitis lower extremity worsening leukocytosis elev LFT shock liver sepsis anemia. h/h is stable cirrhosis elevated trop Subjective ROS Limited/Unobtainable: Yes Allergies: Coded Allergies: No Known Allergies (Unverified , 02/29/20) Objective Last 24 Hour Vital Signs Date Time Temp Pulse Resp B/P (MAP) Pulse Ox O2 Delivery O2 Flow Rate FiO2 03/29/20 21:00 84 24 112/50 (70) 96 03/29/20 20:45 83 24 110/53 (72) 96 03/29/20 20:30 83 24 110/54 (72) 97 03/29/20 20:15 83 24 125/50 (75) 97 03/29/20 20:00 97.7 83 24 131/50 (77) 98 03/29/20 20:00 Mechanical Ventilator Mechanical Ventilator 03/29/20 20:00 60 03/29/20 19:45 83 24 129/58 (81) 97 03/29/20 19:30 84 24 132/50 (77) 97 03/29/20 19:15 84 24 130/49 (76) 97 03/29/20 19:08 84 24 60 03/29/20 19:00 128/48 03/29/20 19:00 84 24 128/48 (74) 96 03/29/20 18:30 84 24 120/43 (68) 96 03/29/20 18:19 112/51 03/29/20 18:00 99/46 03/29/20 18:00 83 24 99/46 (63) 95 03/29/20 17:00 83 24 134/49 (77) 96 03/29/20 17:00 134/49 03/29/20 16:15 86 24 107/45 (65) 93 03/29/20 16:00 86 03/29/20 16:00 97.9 87 24 114/49 (70) 93 03/29/20 16:00 114/49 03/29/20 16:00 60 03/29/20 16:00 Mechanical Ventilator Mechanical Ventilator 03/29/20 15:45 86 24 120/54 (76) 93 03/29/20 15:31 130/57 03/29/20 15:30 86 24 129/56 (80) 94 03/29/20 15:15 90 29 130/57 (81) 83 03/29/20 15:07 86 24 60 03/29/20 15:00 83 24 124/58 (80) 94 03/29/20 15:00 124/58 03/29/20 14:30 82 24 137/74 (95) 93 03/29/20 14:00 82 24 149/63 (91) 94 03/29/20 14:00 149/63 03/29/20 13:30 83 24 146/56 (86) 94 03/29/20 13:00 128/62 03/29/20 13:00 84 24 128/62 (84) 94 03/29/20 12:30 85 24 135/75 (95) 100 03/29/20 12:16 122/53 03/29/20 12:00 Mechanical Ventilator Mechanical Ventilator 03/29/20 12:00 88 03/29/20 12:00 97.7 85 24 122/53 (76) 93 03/29/20 12:00 122/53 03/29/20 11:30 88 24 104/43 (63) 90 03/29/20 11:00 101/47 03/29/20 11:00 86 24 101/47 (65) 92 03/29/20 10:58 86 24 60 03/29/20 10:30 84 24 104/45 (64) 93 03/29/20 10:00 112/42 03/29/20 10:00 82 24 112/42 (65) 95 03/29/20 09:30 82 24 110/39 (62) 96 03/29/20 09:10 109/44 03/29/20 09:01 60 03/29/20 09:00 83 24 109/44 (65) 97 03/29/20 09:00 109/44 03/29/20 08:30 84 25 82/34 (50) 97 03/29/20 08:30 60 03/29/20 08:00 99.1 88 24 86/47 (60) 94 5/13/20 08:00 50 03/29/20 08:00 86/47 03/29/20 08:00 87 03/29/20 08:00 Mechanical Ventilator Mechanical Ventilator 03/29/20 07:30 92 24 107/48 (67) 94 03/29/20 07:07 92 24 50 03/29/20 07:00 86 24 89/47 (61) 88 03/29/20 07:00 102/54 03/29/20 06:45 82 24 102/54 (70) 94 03/29/20 06:30 82 24 105/52 (69) 95 03/29/20 06:15 82 24 107/54 (71) 95 03/29/20 06:00 107/54 03/29/20 06:00 82 24 111/60 (77) 95 03/29/20 05:45 83 24 110/57 (74) 95 03/29/20 05:30 131/59 03/29/20 05:30 84 24 131/59 (83) 96 03/29/20 05:15 83 24 96/50 (65) 96 03/29/20 05:13 127/64 03/29/20 05:00 86 24 127/64 (85) 95 03/29/20 05:00 96/50 03/29/20 04:45 87 24 116/65 (82) 94 03/29/20 04:30 88 24 112/54 (73) 93 03/29/20 04:15 89 24 112/55 (74) 93 03/29/20 04:00 117/55 03/29/20 04:00 50 03/29/20 04:00 98.5 88 24 117/55 (75) 94 03/29/20 04:00 Mechanical Ventilator Mechanical Ventilator 03/29/20 03:55 88 24 50 03/29/20 03:45 87 24 120/60 (80) 94 03/29/20 03:30 86 24 126/64 (84) 94 03/29/20 03:20 84 24 112/55 (74) 94 03/29/20 03:17 83 25 76/60 (65) 95 03/29/20 03:15 76/55 03/29/20 03:15 83 26 89/43 (58) 100 03/29/20 03:01 81 03/29/20 03:00 101/50 03/29/20 03:00 82 24 101/50 (67) 99 03/29/20 02:45 81 24 99/54 (69) 100 03/29/20 02:30 81 24 110/47 (68) 100 03/29/20 02:15 81 24 109/62 (78) 100 03/29/20 02:00 110/57 03/29/20 02:00 81 24 110/57 (74) 100 03/29/20 01:45 82 24 116/56 (76) 100 03/29/20 01:35 113/54 03/29/20 01:30 82 24 113/54 (73) 100 03/29/20 01:15 83 24 111/53 (72) 100 03/29/20 01:00 83 24 108/57 (74) 100 03/29/20 01:00 111/53 03/29/20 00:45 84 24 108/54 (72) 100 03/29/20 00:30 85 24 115/56 (75) 100 03/29/20 00:15 85 24 106/54 (71) 99 03/29/20 00:00 98.3 86 24 103/51 (68) 99 03/29/20 00:00 106/54 03/29/20 00:00 Mechanical Ventilator Mechanical Ventilator 03/29/20 00:00 50 03/28/20 23:45 87 24 100/54 (69) 98 03/28/20 23:37 88 24 91/49 (63) 98 03/28/20 23:30 88 24 91/47 (62) 98 03/28/20 23:19 88 03/28/20 23:15 88 24 94/53 (67) 99 03/28/20 23:11 87 24 50 03/28/20 23:00 87 24 106/56 (73) 99 03/28/20 23:00 94/53 03/28/20 22:45 86 24 111/61 (78) 99 03/28/20 22:30 24 106/56 Mechanical Ventilator 50 03/28/20 22:30 85 24 113/60 (77) 99 03/28/20 22:15 85 24 124/63 (83) 99 03/28/20 22:00 124/63 03/28/20 22:00 85 24 126/64 (84) 98 03/28/20 21:51 89 24 81/47 (58) 95 03/28/20 21:45 90 24 66/47 (53) 95 03/28/20 21:30 84 24 129/53 (78) 99 03/28/20 21:30 126/64 Intake and Output 03/28/20 03/29/20 19:00 07:00 Intake Total 2871.799 ml 2581.41053 ml Output Total 1180 ml 725 ml Balance 1691.799 ml 1856.92636 ml Free Water 300 ml 150 ml IV Total 1821.799 ml 1831.34527 ml Tube Feeding 570 ml 600 ml Other 180 ml Output Urine Total 1180 ml 675 ml Stool Total 50 ml Laboratory Tests 03/29/20 04:05: White Blood Count 26.4*H, Red Blood Count 2.85L, Hemoglobin 10.1L, Hematocrit 31.7L, Mean Corpuscular Volume 111H, Mean Corpuscular Hemoglobin 35.3H, Mean Corpuscular Hemoglobin Concent 31.7L, Red Cell Distribution Width 22.1H, Platelet Count 135L, Mean Platelet Volume 7.5, Neutrophils (%) (Auto) , Lymphocytes (%) (Auto) , Monocytes (%) (Auto) , Eosinophils (%) (Auto) , Basophils (%) (Auto) , Differential Total Cells Counted 100, Neutrophils % ( Manual) 88H, Lymphocytes % (Manual) 3L, Monocytes % (Manual) 9, Eosinophils % ( Manual) 0, Basophils % (Manual) 0, Band Neutrophils 0, Platelet Estimate DecreasedL, Platelet Morphology Normal, Hypochromasia 1+, Anisocytosis 3+, Macrocytosis 2+, Sodium Level 154H, Potassium Level 4.4, Chloride Level 110H, Carbon Dioxide Level 43*H, Anion Gap 0L, Blood Urea Nitrogen 48H, Creatinine 0.9 , Estimat Glomerular Filtration Rate > 60, Glucose Level 402H, Uric Acid 5.9, Calcium Level 9.6, Phosphorus Level 3.4, Magnesium Level 2.7H, Total Bilirubin 1.8H, Direct Bilirubin 1.1H, Aspartate Amino Transf (AST/SGOT) 356H, Alanine Aminotransferase (ALT/SGPT) 269H, Alkaline Phosphatase 341H, Total Protein 6.6, Albumin 2.2L, Globulin 4.4, Albumin/Globulin Ratio 0.5L 03/29/20 08:05: Arterial Blood pH 7.371, Arterial Blood Partial Pressure CO2 73.5*H, Arterial Blood Partial Pressure O2 64.5L, Arterial Blood HCO3 41.6*H, Arterial Blood Oxygen Saturation 87.9*L, Arterial Blood Base Excess 14*H, Joaquin Test N/a 03/29/20 12:30: Urine Color Yellow, Urine Appearance Cloudy, Urine pH 5, Urine Specific [place] 1.010, Urine Protein Negative, Urine Glucose (UA) Negative, Urine Ketones Negative, Urine Blood 1+H, Urine Nitrite Negative, Urine Bilirubin Negative, Urine Urobilinogen Normal, Urine Leukocyte Esterase 2+H, Urine RBC 0-2, Urine WBC 0-2, Urine Squamous Epithelial Cells Few, Urine Bacteria Occasional, Urine Yeast ManyH Height (Feet): 5 Height (Inches): 1.00 Weight (Pounds): 225 Celso Moreno MD March 29, 2020 21:27
[2020-03-29] MEDS: fentaNYL Citrate 1000 MCG in NS 100ml IV SCH (22:30)
--- NOTE | 2020-03-29 22:31 | Cardiology Progress Note ---
Assessment/Plan Assessment/Plan 1. Acute hypoxic hypercapnic respiratory failure, due to bilateral PNA caused by COVID-19 infection, awaiting remdesivir. 2. Septic shock with bradycardia, on dopamine gtt and midodrine, keep MAP at 65 mmHg. Normal LV function with LVEF at 60%. 3. Hyponatremia, resolved. 4. Bilateral lower extremity cellulitis with Pseudomonas aeruginosa in culture. 5. Hypernatremia. Subjective Subjective Sinus rhythm at rate of 84. Objective Last 24 Hour Vital Signs Date Time Temp Pulse Resp B/P (MAP) Pulse Ox O2 Delivery O2 Flow Rate FiO2 03/29/20 22:00 84 24 117/40 (65) 98 03/29/20 21:45 85 24 113/34 (60) 97 03/29/20 21:30 85 24 116/47 (70) 96 03/29/20 21:29 113/45 03/29/20 21:15 84 24 113/45 (67) 96 03/29/20 21:00 84 24 112/50 (70) 96 03/29/20 21:00 113/45 03/29/20 20:45 83 24 110/53 (72) 96 03/29/20 20:30 83 24 110/54 (72) 97 03/29/20 20:15 83 24 125/50 (75) 97 03/29/20 20:00 97.7 83 24 131/50 (77) 98 03/29/20 20:00 Mechanical Ventilator Mechanical Ventilator 03/29/20 20:00 125/50 03/29/20 20:00 60 03/29/20 19:45 83 24 129/58 (81) 97 03/29/20 19:30 84 24 132/50 (77) 97 03/29/20 19:15 84 24 130/49 (76) 97 03/29/20 19:08 84 24 60 03/29/20 19:00 128/48 03/29/20 19:00 84 24 128/48 (74) 96 03/29/20 18:30 84 24 120/43 (68) 96 03/29/20 18:19 112/51 03/29/20 18:00 99/46 03/29/20 18:00 83 24 99/46 (63) 95 03/29/20 17:00 83 24 134/49 (77) 96 03/29/20 17:00 134/49 5/13/20 16:15 86 24 107/45 (65) 93 03/29/20 16:00 86 03/29/20 16:00 97.9 87 24 114/49 (70) 93 03/29/20 16:00 114/49 03/29/20 16:00 60 03/29/20 16:00 Mechanical Ventilator Mechanical Ventilator 03/29/20 15:45 86 24 120/54 (76) 93 03/29/20 15:31 130/57 03/29/20 15:30 86 24 129/56 (80) 94 03/29/20 15:15 90 29 130/57 (81) 83 03/29/20 15:07 86 24 60 03/29/20 15:00 83 24 124/58 (80) 94 03/29/20 15:00 124/58 03/29/20 14:30 82 24 137/74 (95) 93 03/29/20 14:00 82 24 149/63 (91) 94 03/29/20 14:00 149/63 03/29/20 13:30 83 24 146/56 (86) 94 03/29/20 13:00 128/62 03/29/20 13:00 84 24 128/62 (84) 94 03/29/20 12:30 85 24 135/75 (95) 100 03/29/20 12:16 122/53 03/29/20 12:00 Mechanical Ventilator Mechanical Ventilator 03/29/20 12:00 88 03/29/20 12:00 97.7 85 24 122/53 (76) 93 03/29/20 12:00 122/53 03/29/20 11:30 88 24 104/43 (63) 90 03/29/20 11:00 101/47 03/29/20 11:00 86 24 101/47 (65) 92 03/29/20 10:58 86 24 60 03/29/20 10:30 84 24 104/45 (64) 93 03/29/20 10:00 112/42 03/29/20 10:00 82 24 112/42 (65) 95 03/29/20 09:30 82 24 110/39 (62) 96 03/29/20 09:10 109/44 03/29/20 09:01 60 5/13/20 09:00 83 24 109/44 (65) 97 03/29/20 09:00 109/44 03/29/20 08:30 84 25 82/34 (50) 97 03/29/20 08:30 60 03/29/20 08:00 99.1 88 24 86/47 (60) 94 03/29/20 08:00 50 03/29/20 08:00 86/47 03/29/20 08:00 87 03/29/20 08:00 Mechanical Ventilator Mechanical Ventilator 03/29/20 07:30 92 24 107/48 (67) 94 03/29/20 07:07 92 24 50 03/29/20 07:00 86 24 89/47 (61) 88 03/29/20 07:00 102/54 03/29/20 06:45 82 24 102/54 (70) 94 03/29/20 06:30 82 24 105/52 (69) 95 03/29/20 06:15 82 24 107/54 (71) 95 03/29/20 06:00 107/54 03/29/20 06:00 82 24 111/60 (77) 95 03/29/20 05:45 83 24 110/57 (74) 95 03/29/20 05:30 131/59 03/29/20 05:30 84 24 131/59 (83) 96 03/29/20 05:15 83 24 96/50 (65) 96 03/29/20 05:13 127/64 03/29/20 05:00 86 24 127/64 (85) 95 03/29/20 05:00 96/50 03/29/20 04:45 87 24 116/65 (82) 94 03/29/20 04:30 88 24 112/54 (73) 93 03/29/20 04:15 89 24 112/55 (74) 93 03/29/20 04:00 117/55 03/29/20 04:00 50 03/29/20 04:00 98.5 88 24 117/55 (75) 94 03/29/20 04:00 Mechanical Ventilator Mechanical Ventilator 03/29/20 03:55 88 24 50 03/29/20 03:45 87 24 120/60 (80) 94 03/29/20 03:30 86 24 126/64 (84) 94 03/29/20 03:20 84 24 112/55 (74) 94 03/29/20 03:17 83 25 76/60 (65) 95 03/29/20 03:15 76/55 03/29/20 03:15 83 26 89/43 (58) 100 03/29/20 03:01 81 03/29/20 03:00 101/50 03/29/20 03:00 82 24 101/50 (67) 99 03/29/20 02:45 81 24 99/54 (69) 100 03/29/20 02:30 81 24 110/47 (68) 100 03/29/20 02:15 81 24 109/62 (78) 100 03/29/20 02:00 110/57 03/29/20 02:00 81 24 110/57 (74) 100 03/29/20 01:45 82 24 116/56 (76) 100 03/29/20 01:35 113/54 03/29/20 01:30 82 24 113/54 (73) 100 03/29/20 01:15 83 24 111/53 (72) 100 03/29/20 01:00 83 24 108/57 (74) 100 03/29/20 01:00 111/53 03/29/20 00:45 84 24 108/54 (72) 100 03/29/20 00:30 85 24 115/56 (75) 100 03/29/20 00:15 85 24 106/54 (71) 99 03/29/20 00:00 98.3 86 24 103/51 (68) 99 03/29/20 00:00 106/54 03/29/20 00:00 Mechanical Ventilator Mechanical Ventilator 03/29/20 00:00 50 03/28/20 23:45 87 24 100/54 (69) 98 03/28/20 23:37 88 24 91/49 (63) 98 03/28/20 23:30 88 24 91/47 (62) 98 03/28/20 23:19 88 03/28/20 23:15 88 24 94/53 (67) 99 03/28/20 23:11 87 24 50 03/28/20 23:00 87 24 106/56 (73) 99 03/28/20 23:00 94/53 03/28/20 22:45 86 24 111/61 (78) 99 03/28/20 22:30 24 106/56 Mechanical Ventilator 50 03/28/20 22:30 85 24 113/60 (77) 99 Intake and Output 03/28/20 03/29/20 19:00 07:00 Intake Total 2871.799 ml 2581.33882 ml Output Total 1180 ml 725 ml Balance 1691.799 ml 1856.58160 ml Free Water 300 ml 150 ml IV Total 1821.799 ml 1831.56714 ml Tube Feeding 570 ml 600 ml Other 180 ml Output Urine Total 1180 ml 675 ml Stool Total 50 ml 2D Echo: EF 60%, Mild LVH, Mild MR. RVSP 44 mmHg, Normal LVD Fxn Laboratory Tests Test 03/29/20 04:05 03/29/20 08:05 03/29/20 12:30 White Blood Count 26.4 K/UL (4.8-10.8) *H Red Blood Count 2.85 M/UL (4.20-5.40) L Hemoglobin 10.1 G/DL (12.0-16.0) L Hematocrit 31.7 % (37.0-47.0) L Mean Corpuscular Volume 111 FL (80-99) H Mean Corpuscular Hemoglobin 35.3 PG (27.0-31.0) H Mean Corpuscular Hemoglobin Concent 31.7 G/DL (32.0-36.0) L Red Cell Distribution Width 22.1 % (11.6-14.8) H Platelet Count 135 K/UL (150-450) L Mean Platelet Volume 7.5 FL (6.5-10.1) Neutrophils (%) (Auto) % (45.0-75.0) Lymphocytes (%) (Auto) % (20.0-45.0) Monocytes (%) (Auto) % (1.0-10.0) Eosinophils (%) (Auto) % (0.0-3.0) Basophils (%) (Auto) % (0.0-2.0) Differential Total Cells Counted 100 Neutrophils % (Manual) 88 % (45-75) H Lymphocytes % (Manual) 3 % (20-45) L Monocytes % (Manual) 9 % (1-10) Eosinophils % (Manual) 0 % (0-3) Basophils % (Manual) 0 % (0-2) Band Neutrophils 0 % (0-8) Platelet Estimate Decreased L Platelet Morphology Normal Hypochromasia 1+ Anisocytosis 3+ Macrocytosis 2+ Sodium Level 154 MMOL/L (136-145) H Potassium Level 4.4 MMOL/L (3.5-5.1) Chloride Level 110 MMOL/L (98-107) H Carbon Dioxide Level 43 MMOL/L (21-32) *H Anion Gap 0 mmol/L (5-15) L Blood Urea Nitrogen 48 mg/dL (7-18) H Creatinine 0.9 MG/DL (0.55-1.30) Estimat Glomerular Filtration Rate > 60 mL/min (>60) Glucose Level 402 MG/DL (74-106) H Uric Acid 5.9 MG/DL (2.6-7.2) Calcium Level 9.6 MG/DL (8.5-10.1) Phosphorus Level 3.4 MG/DL (2.5-4.9) Magnesium Level 2.7 MG/DL (1.8-2.4) H Total Bilirubin 1.8 MG/DL (0.2-1.0) H Direct Bilirubin 1.1 MG/DL (0.0-0.3) H Aspartate Amino Transf (AST/SGOT) 356 U/L (15-37) H Alanine Aminotransferase (ALT/SGPT) 269 U/L (12-78) H Alkaline Phosphatase 341 U/L (46-116) H Total Protein 6.6 G/DL (6.4-8.2) Albumin 2.2 G/DL (3.4-5.0) L Globulin 4.4 g/dL Albumin/Globulin Ratio 0.5 (1.0-2.7) L Arterial Blood pH 7.371 (7.350-7.450) Arterial Blood Partial Pressure CO2 73.5 mmHg (35.0-45.0) *H Arterial Blood Partial Pressure O2 64.5 mmHg (75.0-100.0) L Arterial Blood HCO3 41.6 mmol/L (22.0-26.0) *H Arterial Blood Oxygen Saturation 87.9 % (95-100) *L Arterial Blood Base Excess 14 (-2-2) *H Joaquin Test N/a Urine Color Yellow Urine Appearance Cloudy Urine pH 5 (4.5-8.0) Urine Specific [place] 1.010 (1.005-1.035) Urine Protein Negative (NEGATIVE) Urine Glucose (UA) Negative (NEGATIVE) Urine Ketones Negative (NEGATIVE) Urine Blood 1+ (NEGATIVE) H Urine Nitrite Negative (NEGATIVE) Urine Bilirubin Negative (NEGATIVE) Urine Urobilinogen Normal MG/DL (0.0-1.0) Urine Leukocyte Esterase 2+ (NEGATIVE) H Urine RBC 0-2 /HPF (0 - 2) Urine WBC 0-2 /HPF (0 - 2) Urine Squamous Epithelial Cells Few /LPF (NONE/OCC) Urine Bacteria Occasional /HPF (NONE) Urine Yeast Many /HPF (NONE) H Objective HEENT: Atraumatic and normocephalic. Anicteric. Intubated. NECK: JVP cannot be assessed. No carotid bruit. + ETT. CARDIOVASCULAR: Normal S1, S2. Regular rate and rhythm. No murmurs, gallops, or rubs. PMI is at fourth intercostal space at left midclavicular line. LUNGS: Bibasilar crackles. ABDOMEN: Soft, nontender, and nondistended. No hepatosplenomegaly. Positive bowel sounds. EXTREMITIES: A 2+ edema bilaterally associated with erythema with blistering and crust formation of both feet. Berto Gonzalez MD March 29, 2020 22:31
[2020-03-30] VITALS (73 sets, daily range): BP systolic 75–130; BP diastolic 24–81
[2020-03-30] MEDS: NovoLOG Insulin Flexpen SUBQ SCH ×12 (01:22→21:20)
[2020-03-30] MEDS: DOPamine 400mg/250ml 250 ML IV SCH ×7 (01:25→21:53)
[2020-03-30] MEDS: Meropenem 1 GM in NS 55 ML IVPB SCH ×3 (05:05→21:21)
--- NOTE | 2020-03-30 07:16 | General Progress Note ---
Assessment/Plan Problem List: (1) Hypothyroid ICD Codes: E03.9 - Hypothyroidism, unspecified SNOMED: 14019191 (2) COVID-19 ICD Codes: U07.1 - COVID-19 SNOMED: 776799123 (3) Respiratory failure with hypoxia ICD Codes: J96.91 - Respiratory failure, unspecified with hypoxia SNOMED: 58302526142927490 Qualifiers: Qualified Codes: J96.01 - Acute respiratory failure with hypoxia (4) Cellulitis ICD Codes: L03.90 - Cellulitis, unspecified SNOMED: 091736659 Qualifiers: Qualified Codes: L03.119 - Cellulitis of unspecified part of limb (5) Hyperglycemia ICD Codes: R73.9 - Hyperglycemia, unspecified SNOMED: [id number] Status: unchanged, deteriorating Assessment/Plan: continue Levemir 50 units bid - increased from 40 units bid increase Novolog 28 to 30 units every 4 hours in addition to sliding scale continue Novolog sliding scale every 4 hours high dose continue Levothyroxine 50 mcg IV daily Subjective ROS Limited/Unobtainable: Yes Allergies: Coded Allergies: No Known Allergies (Unverified , 02/29/20) Subjective events noted - interval notes reviewed intubated in ICU glucose values are trending down - still not controlled Item Value Date Time Bedside Blood Glucose 214 mg/dl H 03/30/20 0506 Bedside Blood Glucose 227 mg/dl H 03/30/20 0123 Bedside Blood Glucose 301 mg/dl H 03/29/20 2121 Bedside Blood Glucose 290 mg/dl H 03/29/20 1820 Bedside Blood Glucose 241 mg/dl H 03/29/20 1301 Bedside Blood Glucose 266 mg/dl H 03/29/20 0844 Bedside Blood Glucose 322 mg/dl H 03/29/20 0532 Objective Last 24 Hour Vital Signs Date Time Temp Pulse Resp B/P (MAP) Pulse Ox O2 Delivery O2 Flow Rate FiO2 03/30/20 07:00 88/39 03/30/20 07:00 80 25 88/39 (55) 94 03/30/20 06:48 79 24 92/43 (59) 95 03/30/20 06:45 80 24 89/35 (53) 95 03/30/20 06:30 80 25 99/52 (68) 96 03/30/20 06:15 80 24 103/48 (66) 96 03/30/20 06:00 99/45 03/30/20 06:00 80 24 99/45 (63) 95 03/30/20 05:45 82 24 97/47 (64) 95 03/30/20 05:30 81 24 101/41 (61) 95 03/30/20 05:15 83 24 101/45 (63) 93 03/30/20 05:07 97/43 03/30/20 05:00 83 24 97/43 (61) 93 03/30/20 04:45 84 24 84/37 (53) 91 03/30/20 04:30 82 24 85/42 (56) 92 03/30/20 04:30 84/37 03/30/20 04:26 82 24 92/41 (58) 92 03/30/20 04:15 80 24 86/39 (55) 92 03/30/20 04:00 Mechanical Ventilator Mechanical Ventilator 03/30/20 04:00 86/39 03/30/20 04:00 98.4 80 24 89/36 (53) 93 03/30/20 04:00 60 03/30/20 03:49 78 24 93/39 (57) 93 03/30/20 03:45 78 24 87/39 (55) 94 03/30/20 03:34 76 03/30/20 03:30 79 24 88/41 (57) 92 03/30/20 03:29 79 24 60 03/30/20 03:15 79 24 100/42 (61) 94 03/30/20 03:00 100/42 03/30/20 03:00 78 24 100/24 (49) 94 03/30/20 02:45 81 27 97/32 (53) 90 03/30/20 02:30 79 24 112/45 (67) 98 03/30/20 02:15 79 24 103/53 (70) 98 03/30/20 02:00 103/53 03/30/20 02:00 80 24 106/44 (64) 98 03/30/20 01:45 80 24 103/39 (60) 98 03/30/20 01:30 81 24 102/36 (58) 96 03/30/20 01:25 107/51 03/30/20 01:15 81 24 107/51 (69) 97 03/30/20 01:00 81 24 104/40 (61) 97 03/30/20 01:00 107/51 03/30/20 00:45 82 24 101/46 (64) 96 03/30/20 00:30 81 24 98/42 (60) 95 03/30/20 00:15 78 24 96/46 (63) 96 03/30/20 00:00 Mechanical Ventilator Mechanical Ventilator 03/30/20 00:00 96/46 03/30/20 00:00 97.6 79 24 102/42 (62) 96 03/29/20 23:45 78 24 111/46 (67) 97 03/29/20 23:30 78 24 112/39 (63) 98 03/29/20 23:23 78 03/29/20 23:15 76 24 116/38 (64) 98 03/29/20 23:06 78 24 60 03/29/20 23:00 76 24 116/46 (69) 98 03/29/20 23:00 116/38 03/29/20 22:45 77 24 113/57 (75) 98 03/29/20 22:30 73 24 110/50 (70) 98 03/29/20 22:15 84 24 120/50 (73) 98 03/29/20 22:00 120/50 03/29/20 22:00 84 24 117/40 (65) 98 03/29/20 21:45 85 24 113/34 (60) 97 03/29/20 21:30 85 24 116/47 (70) 96 03/29/20 21:29 113/45 03/29/20 21:15 84 24 113/45 (67) 96 03/29/20 21:00 84 24 112/50 (70) 96 03/29/20 21:00 113/45 03/29/20 20:45 83 24 110/53 (72) 96 03/29/20 20:30 83 24 110/54 (72) 97 03/29/20 20:15 83 24 125/50 (75) 97 03/29/20 20:00 97.7 83 24 131/50 (77) 98 03/29/20 20:00 Mechanical Ventilator Mechanical Ventilator 03/29/20 20:00 125/50 03/29/20 20:00 60 5/13/20 19:45 83 24 129/58 (81) 97 03/29/20 19:39 84 03/29/20 19:30 84 24 132/50 (77) 97 03/29/20 19:15 84 24 130/49 (76) 97 03/29/20 19:08 84 24 60 03/29/20 19:00 128/48 03/29/20 19:00 84 24 128/48 (74) 96 03/29/20 18:30 84 24 120/43 (68) 96 03/29/20 18:19 112/51 03/29/20 18:00 99/46 03/29/20 18:00 83 24 99/46 (63) 95 03/29/20 17:00 83 24 134/49 (77) 96 03/29/20 17:00 134/49 03/29/20 16:15 86 24 107/45 (65) 93 03/29/20 16:00 86 03/29/20 16:00 97.9 87 24 114/49 (70) 93 03/29/20 16:00 114/49 03/29/20 16:00 60 03/29/20 16:00 Mechanical Ventilator Mechanical Ventilator 03/29/20 15:45 86 24 120/54 (76) 93 03/29/20 15:31 130/57 03/29/20 15:30 86 24 129/56 (80) 94 03/29/20 15:15 90 29 130/57 (81) 83 03/29/20 15:07 86 24 60 03/29/20 15:00 83 24 124/58 (80) 94 03/29/20 15:00 124/58 03/29/20 14:30 82 24 137/74 (95) 93 03/29/20 14:00 82 24 149/63 (91) 94 03/29/20 14:00 149/63 03/29/20 13:30 83 24 146/56 (86) 94 03/29/20 13:00 128/62 03/29/20 13:00 84 24 128/62 (84) 94 03/29/20 12:30 85 24 135/75 (95) 100 03/29/20 12:16 122/53 03/29/20 12:00 Mechanical Ventilator Mechanical Ventilator 03/29/20 12:00 88 03/29/20 12:00 97.7 85 24 122/53 (76) 93 03/29/20 12:00 122/53 03/29/20 11:30 88 24 104/43 (63) 90 03/29/20 11:00 101/47 03/29/20 11:00 86 24 101/47 (65) 92 03/29/20 10:58 86 24 60 03/29/20 10:30 84 24 104/45 (64) 93 03/29/20 10:00 112/42 03/29/20 10:00 82 24 112/42 (65) 95 03/29/20 09:30 82 24 110/39 (62) 96 03/29/20 09:10 109/44 03/29/20 09:01 60 03/29/20 09:00 83 24 109/44 (65) 97 03/29/20 09:00 109/44 03/29/20 08:30 84 25 82/34 (50) 97 03/29/20 08:30 60 03/29/20 08:00 99.1 88 24 86/47 (60) 94 03/29/20 08:00 50 03/29/20 08:00 86/47 03/29/20 08:00 87 03/29/20 08:00 Mechanical Ventilator Mechanical Ventilator 03/29/20 07:30 92 24 107/48 (67) 94 Intake and Output 03/29/20 03/30/20 19:00 07:00 Intake Total 2764.563 ml 3112.0523 ml Output Total 905 ml 1200 ml Balance 1859.563 ml 1912.0523 ml Free Water 200 ml 450 ml IV Total 1964.563 ml 2062.0523 ml Tube Feeding 500 ml 600 ml Other 100 ml Output Urine Total 905 ml 1200 ml # Bowel Movements 1 Laboratory Tests 03/29/20 08:05: Arterial Blood pH 7.371, Arterial Blood Partial Pressure CO2 73.5*H, Arterial Blood Partial Pressure O2 64.5L, Arterial Blood HCO3 41.6*H, Arterial Blood Oxygen Saturation 87.9*L, Arterial Blood Base Excess 14*H, Joaquin Test N/a 03/29/20 12:30: Urine Color Yellow, Urine Appearance Cloudy, Urine pH 5, Urine Specific [place] 1.010, Urine Protein Negative, Urine Glucose (UA) Negative, Urine Ketones Negative, Urine Blood 1+H, Urine Nitrite Negative, Urine Bilirubin Negative, Urine Urobilinogen Normal, Urine Leukocyte Esterase 2+H, Urine RBC 0-2, Urine WBC 0-2, Urine Squamous Epithelial Cells Few, Urine Bacteria Occasional, Urine Yeast ManyH Height (Feet): 5 Height (Inches): 1.00 Weight (Pounds): 225 General Appearance: severe distress Neck: normal alignment Cardiovascular: tachycardia Respiratory/Chest: decreased breath sounds Abdomen: normal bowel sounds Objective Current Medications Medications (Trade) Dose Ordered Sig/Dolores Route PRN Reason Start Time Stop Time Status Last Admin Dose Admin Acetaminophen (Tylenol) 650 mg Q4H PRN ORAL Mild Pain (Pain Scale 1-3) 03/13/20 14:53 04/12/20 14:52 03/25/20 12:35 Acetaminophen (Tylenol) 650 mg Q4H PRN ORAL Temp >100 03/13/20 14:53 04/12/20 14:52 03/25/20 17:16 Chlorhexidine Gluconate (Lucretia-Hex 2%) 1 applic DAILY@2000 TOPIC 03/13/20 20:00 06/11/20 19:59 03/29/20 21:18 Dextrose 1,000 ml @ 100 mls/hr Q10H IV 03/27/20 08:00 04/26/20 07:59 03/30/20 03:57 Dextrose (Dextrose 50%) 25 ml Q30M PRN IV Hypoglycemia 03/28/20 06:45 06/26/20 06:44 Dextrose (Dextrose 50%) 50 ml Q30M PRN IV Hypoglycemia 03/28/20 06:45 06/26/20 06:44 Dopamine HCl/ Dextrose 250 ml @ 0 mls/hr Q24H IV 03/16/20 19:30 06/14/20 19:29 03/30/20 05:07 Fentanyl Citrate 1000 mcg/Sodium Chloride 100 ml @ 0 mls/hr Q24H IV 03/27/20 22:30 04/03/20 22:29 03/27/20 22:56 Hydralazine HCl (Apresoline) 10 mg Q6H PRN IV For High Blood Pressure 03/24/20 16:45 06/22/20 16:44 Insulin Aspart (NovoLOG) EVERY 4 HOURS SUBQ 03/26/20 09:00 06/24/20 08:59 03/30/20 05:06 Insulin Aspart (NovoLOG) 28 units EVERY 4 HOURS SUBQ 03/29/20 09:00 06/26/20 08:59 03/30/20 05:06 Insulin Detemir (Levemir) 50 units Q12HR SUBQ 03/29/20 09:00 06/20/20 18:59 03/29/20 21:20 Levothyroxine Sodium (Synthroid) 50 mcg DAILY IV 03/21/20 09:00 04/17/20 11:59 03/29/20 08:43 Lorazepam (Ativan 2mg/ml 1ml) 1 mg Q2H PRN IV For Anxiety 03/25/20 16:30 04/01/20 16:29 03/25/20 23:39 Meropenem 1 gm/ Sodium Chloride 55 ml @ 110 mls/hr Q8HR IVPB 03/29/20 14:00 04/03/20 13:59 03/30/20 05:05 Methylprednisolone Sodium Succinate (Solu-MEDROL) 10 mg DAILY IVP 03/30/20 09:00 04/02/20 08:59 Midodrine (Pro-Amatine) 10 mg THREE TIMES A DAY NG 03/27/20 09:00 06/20/20 12:29 03/29/20 17:42 Non-Formulary Medication (Non-Formulary Med) 1 ea DAILY IV 03/18/20 09:00 04/17/20 08:59 UNV Norepinephrine Bitartrate 4 mg/ Dextrose 250 ml @ 0 mls/hr Q24H PRN IV For hypotension 03/25/20 16:30 04/24/20 16:29 Vasopressin 100 units/Sodium Chloride 100 ml @ 0 mls/hr Q24H PRN IV For hypotension 03/16/20 11:00 04/15/20 10:59 03/19/20 18:03 Johan Christopher MD March 30, 2020 07:16
[2020-03-30] MEDS: Midodrine 10mg tab NG SCH ×3 (09:06→18:17)
[2020-03-30] MEDS: Solu-MEDROL 40mg Inj IVP SCH (09:06)
[2020-03-30 09:31] LABS: HEMATOCRIT 28.2 % (37.0-47.0); HEMOGLOBIN 9.3 G/DL (12.0-16.0); MEAN CORPUSCULAR VOLUME 107 FL (80-99); PLATELET COUNT 68 K/UL (150-450); RED BLOOD COUNT 2.62 M/UL (4.20-5.40); RED CELL DISTRIBUTION WIDTH 21.6 % (11.6-14.8)
--- NOTE | 2020-03-30 09:34 | Infectious Diseases Prog Note ---
Assessment/Plan Assessment/Plan IMPRESSION: 1. Bilateral leg cellulitis,Pseudomonas in culture 2. Anemia. 3. Hypoxemic respiratory failure 4. Thrombocytopenia. 5. Homeless 6. Morbid obesity. 7. Cirrhosis 8. COVID19 pneumonia Positive03/07-03/12, 03/24, 03/27 9. Hepatitis C 10.septic shock 11. Pneumonia with Pseudomonas 12. DM & hyperglycemia 13. Diarrhea, 14. Leukocytosis RECOMMENDATION: Will f/u COVID19 test Finished Plaquenil ,Actemra & Ivermectin Will f/u cultures & CBC continue Meropenem Taper steroids Blood culture is negative so far Repeat COVID19 test Case was D/W RN Subjective ROS Limited/Unobtainable: Yes Constitutional: Denies: fever Respiratory: Reports: other - on Dopamin Allergies: Coded Allergies: No Known Allergies (Unverified , 02/29/20) Objective Vital Signs Last 24 Hour Vital Signs Date Time Temp Pulse Resp B/P (MAP) Pulse Ox O2 Delivery O2 Flow Rate FiO2 03/30/20 09:07 98/26 03/30/20 07:05 83 24 60 03/30/20 07:00 88/39 03/30/20 07:00 80 25 88/39 (55) 94 03/30/20 06:48 79 24 92/43 (59) 95 03/30/20 06:45 80 24 89/35 (53) 95 03/30/20 06:30 80 25 99/52 (68) 96 03/30/20 06:15 80 24 103/48 (66) 96 03/30/20 06:00 99/45 03/30/20 06:00 80 24 99/45 (63) 95 03/30/20 05:45 82 24 97/47 (64) 95 03/30/20 05:30 81 24 101/41 (61) 95 03/30/20 05:15 83 24 101/45 (63) 93 03/30/20 05:07 97/43 03/30/20 05:00 83 24 97/43 (61) 93 03/30/20 04:45 84 24 84/37 (53) 91 03/30/20 04:30 82 24 85/42 (56) 92 03/30/20 04:30 84/37 03/30/20 04:26 82 24 92/41 (58) 92 03/30/20 04:15 80 24 86/39 (55) 92 03/30/20 04:00 Mechanical Ventilator Mechanical Ventilator 03/30/20 04:00 86/39 03/30/20 04:00 98.4 80 24 89/36 (53) 93 03/30/20 04:00 60 03/30/20 03:49 78 24 93/39 (57) 93 03/30/20 03:45 78 24 87/39 (55) 94 03/30/20 03:34 76 03/30/20 03:30 79 24 88/41 (57) 92 03/30/20 03:29 79 24 60 03/30/20 03:15 79 24 100/42 (61) 94 03/30/20 03:00 100/42 03/30/20 03:00 78 24 100/24 (49) 94 03/30/20 02:45 81 27 97/32 (53) 90 03/30/20 02:30 79 24 112/45 (67) 98 03/30/20 02:15 79 24 103/53 (70) 98 03/30/20 02:00 103/53 03/30/20 02:00 80 24 106/44 (64) 98 03/30/20 01:45 80 24 103/39 (60) 98 03/30/20 01:30 81 24 102/36 (58) 96 03/30/20 01:25 107/51 03/30/20 01:15 81 24 107/51 (69) 97 03/30/20 01:00 81 24 104/40 (61) 97 03/30/20 01:00 107/51 03/30/20 00:45 82 24 101/46 (64) 96 03/30/20 00:30 81 24 98/42 (60) 95 03/30/20 00:15 78 24 96/46 (63) 96 03/30/20 00:00 Mechanical Ventilator Mechanical Ventilator 03/30/20 00:00 96/46 03/30/20 00:00 97.6 79 24 102/42 (62) 96 03/29/20 23:45 78 24 111/46 (67) 97 03/29/20 23:30 78 24 112/39 (63) 98 03/29/20 23:23 78 03/29/20 23:15 76 24 116/38 (64) 98 03/29/20 23:06 78 24 60 03/29/20 23:00 76 24 116/46 (69) 98 03/29/20 23:00 116/38 03/29/20 22:45 77 24 113/57 (75) 98 03/29/20 22:30 73 24 110/50 (70) 98 03/29/20 22:15 84 24 120/50 (73) 98 03/29/20 22:00 120/50 03/29/20 22:00 84 24 117/40 (65) 98 03/29/20 21:45 85 24 113/34 (60) 97 03/29/20 21:30 85 24 116/47 (70) 96 03/29/20 21:29 113/45 03/29/20 21:15 84 24 113/45 (67) 96 03/29/20 21:00 84 24 112/50 (70) 96 03/29/20 21:00 113/45 03/29/20 20:45 83 24 110/53 (72) 96 03/29/20 20:30 83 24 110/54 (72) 97 03/29/20 20:15 83 24 125/50 (75) 97 03/29/20 20:00 97.7 83 24 131/50 (77) 98 03/29/20 20:00 Mechanical Ventilator Mechanical Ventilator 03/29/20 20:00 125/50 03/29/20 20:00 60 03/29/20 19:45 83 24 129/58 (81) 97 03/29/20 19:39 84 03/29/20 19:30 84 24 132/50 (77) 97 03/29/20 19:15 84 24 130/49 (76) 97 03/29/20 19:08 84 24 60 03/29/20 19:00 128/48 03/29/20 19:00 84 24 128/48 (74) 96 03/29/20 18:30 84 24 120/43 (68) 96 03/29/20 18:19 112/51 03/29/20 18:00 99/46 03/29/20 18:00 83 24 99/46 (63) 95 03/29/20 17:00 83 24 134/49 (77) 96 03/29/20 17:00 134/49 03/29/20 16:15 86 24 107/45 (65) 93 03/29/20 16:00 86 03/29/20 16:00 97.9 87 24 114/49 (70) 93 03/29/20 16:00 114/49 03/29/20 16:00 60 03/29/20 16:00 Mechanical Ventilator Mechanical Ventilator 03/29/20 15:45 86 24 120/54 (76) 93 03/29/20 15:31 130/57 03/29/20 15:30 86 24 129/56 (80) 94 03/29/20 15:15 90 29 130/57 (81) 83 03/29/20 15:07 86 24 60 03/29/20 15:00 83 24 124/58 (80) 94 03/29/20 15:00 124/58 03/29/20 14:30 82 24 137/74 (95) 93 03/29/20 14:00 82 24 149/63 (91) 94 03/29/20 14:00 149/63 03/29/20 13:30 83 24 146/56 (86) 94 03/29/20 13:00 128/62 03/29/20 13:00 84 24 128/62 (84) 94 03/29/20 12:30 85 24 135/75 (95) 100 03/29/20 12:16 122/53 03/29/20 12:00 Mechanical Ventilator Mechanical Ventilator 03/29/20 12:00 88 03/29/20 12:00 97.7 85 24 122/53 (76) 93 03/29/20 12:00 122/53 03/29/20 11:30 88 24 104/43 (63) 90 03/29/20 11:00 101/47 03/29/20 11:00 86 24 101/47 (65) 92 03/29/20 10:58 86 24 60 03/29/20 10:30 84 24 104/45 (64) 93 03/29/20 10:00 112/42 03/29/20 10:00 82 24 112/42 (65) 95 Height (Feet): 5 Height (Inches): 1.00 Weight (Pounds): 225 HEENT: other Respiratory/Chest: other - on Ventilator Cardiovascular: normal rate, other - PICC line Abdomen: soft, non tender, other - NG tube Extremities: other - edema Neurologic/Psychiatric: other - fixed dilated pupils, off of sedation Microbiology Date/Time Source Procedure Growth Status 03/27/20 21:30 Nasopharynx Coronavirus COVID-19 PCR (DANIELLA) - Final Complete 03/29/20 12:30 Indwelling Cath Urine Culture - Preliminary Resulted Laboratory Tests Test 03/29/20 12:30 03/30/20 09:10 Urine Color Yellow Urine Appearance Cloudy Urine pH 5 (4.5-8.0) Urine Specific [place] 1.010 (1.005-1.035) Urine Protein Negative (NEGATIVE) Urine Glucose (UA) Negative (NEGATIVE) Urine Ketones Negative (NEGATIVE) Urine Blood 1+ (NEGATIVE) H Urine Nitrite Negative (NEGATIVE) Urine Bilirubin Negative (NEGATIVE) Urine Urobilinogen Normal MG/DL (0.0-1.0) Urine Leukocyte Esterase 2+ (NEGATIVE) H Urine RBC 0-2 /HPF (0 - 2) Urine WBC 0-2 /HPF (0 - 2) Urine Squamous Epithelial Cells Few /LPF (NONE/OCC) Urine Bacteria Occasional /HPF (NONE) Urine Yeast Many /HPF (NONE) H White Blood Count Pending Red Blood Count Pending Hemoglobin Pending Hematocrit Pending Mean Corpuscular Volume Pending Mean Corpuscular Hemoglobin Pending Mean Corpuscular Hemoglobin Concent Pending Red Cell Distribution Width Pending Platelet Count Pending Mean Platelet Volume Pending Neutrophils (%) (Auto) Pending Lymphocytes (%) (Auto) Pending Monocytes (%) (Auto) Pending Eosinophils (%) (Auto) Pending Basophils (%) (Auto) Pending Sodium Level Pending Potassium Level Pending Chloride Level Pending Carbon Dioxide Level Pending Blood Urea Nitrogen Pending Creatinine Pending Estimat Glomerular Filtration Rate Pending Glucose Level Pending Calcium Level Pending Phosphorus Level Pending Magnesium Level Pending Total Bilirubin Pending Aspartate Amino Transf (AST/SGOT) Pending Alanine Aminotransferase (ALT/SGPT) Pending Alkaline Phosphatase Pending Total Protein Pending Albumin Pending Globulin Pending Current Medications Medications (Trade) Dose Ordered Sig/Dolores Route PRN Reason Start Time Stop Time Status Last Admin Dose Admin Acetaminophen (Tylenol) 650 mg Q4H PRN ORAL Mild Pain (Pain Scale 1-3) 03/13/20 14:53 04/12/20 14:52 03/25/20 12:35 Acetaminophen (Tylenol) 650 mg Q4H PRN ORAL Temp >100 03/13/20 14:53 04/12/20 14:52 03/25/20 17:16 Chlorhexidine Gluconate (Lucretia-Hex 2%) 1 applic DAILY@2000 TOPIC 03/13/20 20:00 06/11/20 19:59 03/29/20 21:18 Dextrose 1,000 ml @ 100 mls/hr Q10H IV 03/27/20 08:00 04/26/20 07:59 03/30/20 03:57 Dextrose (Dextrose 50%) 25 ml Q30M PRN IV Hypoglycemia 03/28/20 06:45 06/26/20 06:44 Dextrose (Dextrose 50%) 50 ml Q30M PRN IV Hypoglycemia 03/28/20 06:45 06/26/20 06:44 Dopamine HCl/ Dextrose 250 ml @ 0 mls/hr Q24H IV 03/16/20 19:30 06/14/20 19:29 03/30/20 09:07 Fentanyl Citrate 1000 mcg/Sodium Chloride 100 ml @ 0 mls/hr Q24H IV 03/27/20 22:30 04/03/20 22:29 03/27/20 22:56 Hydralazine HCl (Apresoline) 10 mg Q6H PRN IV For High Blood Pressure 03/24/20 16:45 06/22/20 16:44 Insulin Aspart (NovoLOG) EVERY 4 HOURS SUBQ 03/26/20 09:00 06/24/20 08:59 03/30/20 05:06 Insulin Aspart (NovoLOG) 30 units EVERY 4 HOURS SUBQ 03/30/20 09:00 06/26/20 08:59 Insulin Detemir (Levemir) 50 units Q12HR SUBQ 03/29/20 09:00 06/20/20 18:59 03/29/20 21:20 Levothyroxine Sodium (Synthroid) 50 mcg DAILY IV 03/21/20 09:00 04/17/20 11:59 03/30/20 09:06 Lorazepam (Ativan 2mg/ml 1ml) 1 mg Q2H PRN IV For Anxiety 03/25/20 16:30 04/01/20 16:29 03/25/20 23:39 Meropenem 1 gm/ Sodium Chloride 55 ml @ 110 mls/hr Q8HR IVPB 03/29/20 14:00 04/03/20 13:59 03/30/20 05:05 Methylprednisolone Sodium Succinate (Solu-MEDROL) 10 mg DAILY IVP 03/30/20 09:00 04/02/20 08:59 03/30/20 09:06 Midodrine (Pro-Amatine) 10 mg THREE TIMES A DAY NG 03/27/20 09:00 06/20/20 12:29 03/30/20 09:06 Non-Formulary Medication (Non-Formulary Med) 1 ea DAILY IV 03/18/20 09:00 04/17/20 08:59 UNV Norepinephrine Bitartrate 4 mg/ Dextrose 250 ml @ 0 mls/hr Q24H PRN IV For hypotension 03/25/20 16:30 04/24/20 16:29 Vasopressin 100 units/Sodium Chloride 100 ml @ 0 mls/hr Q24H PRN IV For hypotension 03/16/20 11:00 04/15/20 10:59 03/19/20 18:03 Jonathon Shah MD March 30, 2020 09:34
[2020-03-30 09:36] LABS: BLOOD UREA NITROGEN 53 mg/dL (7-18); CALCIUM 9.3 MG/DL (8.5-10.1); CARBON DIOXIDE 40 MMOL/L (21-32); CHLORIDE 103 MMOL/L (98-107); CREATININE 0.9 MG/DL (0.55-1.30); SODIUM 142 MMOL/L (136-145)
[2020-03-30 09:42] LABS: WHITE BLOOD COUNT 26.8 K/UL (4.8-10.8)
[2020-03-30 09:47] LABS: ALANINE AMINOTRANSFERASE 281 U/L (12-78); ALBUMIN 1.9 G/DL (3.4-5.0); ALBUMIN/GLOBULIN RATIO 0.5 (1.0-2.7); ALKALINE PHOSPHATASE 343 U/L (46-116); ANION GAP -1 mmol/L (5-15); ASPARTATE AMINO TRANSFERASE 535 U/L (15-37); BILIRUBIN,DIRECT 0.9 MG/DL (0.0-0.3); BILIRUBIN,TOTAL 1.7 MG/DL (0.2-1.0); PHOSPHORUS 4.2 MG/DL (2.5-4.9)
[2020-03-30] MEDS: Levemir Flexpen SUBQ SCH ×2 (09:59→21:19)
--- NOTE | 2020-03-30 10:22 | General Progress Note ---
Assessment/Plan Status: unchanged, deteriorating Assessment/Plan: macrocytic anemia elevated LFTS cirrhosis cellulitis elevated Ammonia levels respiratory distress>>> now failure COVID positive pna NGTF abd us>> reordered>>>>pending Xifaxan fu stool ob>>>neg GI procedures if needed abx per id hepatitis panel>>>>>positive for hep C>>> needs out patient fu poor prognosis still has loose stools>>> off lactulose will fu Subjective ROS Limited/Unobtainable: No Allergies: Coded Allergies: No Known Allergies (Unverified , 02/29/20) Objective Last 24 Hour Vital Signs Date Time Temp Pulse Resp B/P (MAP) Pulse Ox O2 Delivery O2 Flow Rate FiO2 03/30/20 09:07 98/26 03/30/20 07:05 83 24 60 03/30/20 07:00 88/39 03/30/20 07:00 80 25 88/39 (55) 94 03/30/20 06:48 79 24 92/43 (59) 95 03/30/20 06:45 80 24 89/35 (53) 95 03/30/20 06:30 80 25 99/52 (68) 96 03/30/20 06:15 80 24 103/48 (66) 96 03/30/20 06:00 99/45 03/30/20 06:00 80 24 99/45 (63) 95 03/30/20 05:45 82 24 97/47 (64) 95 03/30/20 05:30 81 24 101/41 (61) 95 03/30/20 05:15 83 24 101/45 (63) 93 03/30/20 05:07 97/43 03/30/20 05:00 83 24 97/43 (61) 93 03/30/20 04:45 84 24 84/37 (53) 91 03/30/20 04:30 82 24 85/42 (56) 92 03/30/20 04:30 84/37 03/30/20 04:26 82 24 92/41 (58) 92 03/30/20 04:15 80 24 86/39 (55) 92 03/30/20 04:00 Mechanical Ventilator Mechanical Ventilator 03/30/20 04:00 86/39 03/30/20 04:00 98.4 80 24 89/36 (53) 93 03/30/20 04:00 60 03/30/20 03:49 78 24 93/39 (57) 93 03/30/20 03:45 78 24 87/39 (55) 94 03/30/20 03:34 76 03/30/20 03:30 79 24 88/41 (57) 92 03/30/20 03:29 79 24 60 03/30/20 03:15 79 24 100/42 (61) 94 03/30/20 03:00 100/42 03/30/20 03:00 78 24 100/24 (49) 94 03/30/20 02:45 81 27 97/32 (53) 90 03/30/20 02:30 79 24 112/45 (67) 98 03/30/20 02:15 79 24 103/53 (70) 98 03/30/20 02:00 103/53 03/30/20 02:00 80 24 106/44 (64) 98 03/30/20 01:45 80 24 103/39 (60) 98 03/30/20 01:30 81 24 102/36 (58) 96 03/30/20 01:25 107/51 03/30/20 01:15 81 24 107/51 (69) 97 03/30/20 01:00 81 24 104/40 (61) 97 03/30/20 01:00 107/51 03/30/20 00:45 82 24 101/46 (64) 96 03/30/20 00:30 81 24 98/42 (60) 95 03/30/20 00:15 78 24 96/46 (63) 96 03/30/20 00:00 Mechanical Ventilator Mechanical Ventilator 03/30/20 00:00 96/46 03/30/20 00:00 97.6 79 24 102/42 (62) 96 03/29/20 23:45 78 24 111/46 (67) 97 03/29/20 23:30 78 24 112/39 (63) 98 03/29/20 23:23 78 03/29/20 23:15 76 24 116/38 (64) 98 03/29/20 23:06 78 24 60 03/29/20 23:00 76 24 116/46 (69) 98 03/29/20 23:00 116/38 03/29/20 22:45 77 24 113/57 (75) 98 03/29/20 22:30 73 24 110/50 (70) 98 03/29/20 22:15 84 24 120/50 (73) 98 03/29/20 22:00 120/50 03/29/20 22:00 84 24 117/40 (65) 98 03/29/20 21:45 85 24 113/34 (60) 97 03/29/20 21:30 85 24 116/47 (70) 96 03/29/20 21:29 113/45 03/29/20 21:15 84 24 113/45 (67) 96 03/29/20 21:00 84 24 112/50 (70) 96 03/29/20 21:00 113/45 03/29/20 20:45 83 24 110/53 (72) 96 03/29/20 20:30 83 24 110/54 (72) 97 03/29/20 20:15 83 24 125/50 (75) 97 03/29/20 20:00 97.7 83 24 131/50 (77) 98 03/29/20 20:00 Mechanical Ventilator Mechanical Ventilator 03/29/20 20:00 125/50 03/29/20 20:00 60 03/29/20 19:45 83 24 129/58 (81) 97 03/29/20 19:39 84 03/29/20 19:30 84 24 132/50 (77) 97 03/29/20 19:15 84 24 130/49 (76) 97 03/29/20 19:08 84 24 60 03/29/20 19:00 128/48 03/29/20 19:00 84 24 128/48 (74) 96 03/29/20 18:30 84 24 120/43 (68) 96 03/29/20 18:19 112/51 03/29/20 18:00 99/46 03/29/20 18:00 83 24 99/46 (63) 95 03/29/20 17:00 83 24 134/49 (77) 96 03/29/20 17:00 134/49 03/29/20 16:15 86 24 107/45 (65) 93 03/29/20 16:00 86 03/29/20 16:00 97.9 87 24 114/49 (70) 93 03/29/20 16:00 114/49 03/29/20 16:00 60 03/29/20 16:00 Mechanical Ventilator Mechanical Ventilator 03/29/20 15:45 86 24 120/54 (76) 93 03/29/20 15:31 130/57 03/29/20 15:30 86 24 129/56 (80) 94 03/29/20 15:15 90 29 130/57 (81) 83 03/29/20 15:07 86 24 60 03/29/20 15:00 83 24 124/58 (80) 94 03/29/20 15:00 124/58 03/29/20 14:30 82 24 137/74 (95) 93 03/29/20 14:00 82 24 149/63 (91) 94 03/29/20 14:00 149/63 03/29/20 13:30 83 24 146/56 (86) 94 03/29/20 13:00 128/62 03/29/20 13:00 84 24 128/62 (84) 94 03/29/20 12:30 85 24 135/75 (95) 100 03/29/20 12:16 122/53 03/29/20 12:00 Mechanical Ventilator Mechanical Ventilator 03/29/20 12:00 88 03/29/20 12:00 97.7 85 24 122/53 (76) 93 03/29/20 12:00 122/53 03/29/20 11:30 88 24 104/43 (63) 90 03/29/20 11:00 101/47 03/29/20 11:00 86 24 101/47 (65) 92 03/29/20 10:58 86 24 60 03/29/20 10:30 84 24 104/45 (64) 93 Intake and Output 03/29/20 03/30/20 19:00 07:00 Intake Total 2764.563 ml 3112.0523 ml Output Total 905 ml 1200 ml Balance 1859.563 ml 1912.0523 ml Free Water 200 ml 450 ml IV Total 1964.563 ml 2062.0523 ml Tube Feeding 500 ml 600 ml Other 100 ml Output Urine Total 905 ml 1200 ml # Bowel Movements 1 Laboratory Tests 03/29/20 12:30: Urine Color Yellow, Urine Appearance Cloudy, Urine pH 5, Urine Specific [place] 1.010, Urine Protein Negative, Urine Glucose (UA) Negative, Urine Ketones Negative, Urine Blood 1+H, Urine Nitrite Negative, Urine Bilirubin Negative, Urine Urobilinogen Normal, Urine Leukocyte Esterase 2+H, Urine RBC 0-2, Urine WBC 0-2, Urine Squamous Epithelial Cells Few, Urine Bacteria Occasional, Urine Yeast ManyH 03/30/20 09:10: White Blood Count 26.8*H, Red Blood Count 2.62L, Hemoglobin 9.3L, Hematocrit 28.2L, Mean Corpuscular Volume 107H, Mean Corpuscular Hemoglobin 35.4H, Mean Corpuscular Hemoglobin Concent 33.0, Red Cell Distribution Width 21.6H, Platelet Count 68L, Mean Platelet Volume 8.6, Neutrophils (%) (Auto) , Lymphocytes (%) (Auto) , Monocytes (%) (Auto) , Eosinophils (%) (Auto) , Basophils (%) (Auto) , Neutrophils % (Manual) [Pending], Lymphocytes % (Manual) [Pending], Platelet Estimate [Pending], Platelet Morphology [Pending], Sodium Level 142, Potassium Level 5.0, Chloride Level 103, Carbon Dioxide Level 40H, Anion Gap -1L, Blood Urea Nitrogen 53H, Creatinine 0.9, Estimat Glomerular Filtration Rate > 60, Glucose Level 171#H, Calcium Level 9.3, Phosphorus Level 4.2, Magnesium Level 2.6H, Total Bilirubin 1.7H, Direct Bilirubin 0.9H, Aspartate Amino Transf (AST/SGOT) 535H, Alanine Aminotransferase (ALT/SGPT) 281H , Alkaline Phosphatase 343H, Total Protein 5.9L, Albumin 1.9L, Globulin 4.0, Albumin/Globulin Ratio 0.5L Height (Feet): 5 Height (Inches): 1.00 Weight (Pounds): 225 General Appearance: no apparent distress EENT: normal ENT inspection Neck: supple Cardiovascular: normal rate Respiratory/Chest: decreased breath sounds Abdomen: normal bowel sounds, non tender, soft Extremities: non-tender Tam Spicer MD March 30, 2020 10:22
--- NOTE | 2020-03-30 13:29 | Nephrology Progress Note ---
Assessment/Plan Problem List: (1) Electrolyte imbalance Assessment: Hyponatremia resolved -hyperkalemia resolved (2) COVID-19 (3) Respiratory failure with hypoxia (4) Cellulitis (5) Hypothyroid Assessment Hyponatremia. Serum sodium started drifting down from March 16. Hyperkalemia. Septic shock. Acute respiratory failure. Respiratory failure and COVID pneumonia. History of cirrhosis/splenomegaly Anemia Bilateral lower extremity cellulitis Plan March 30 Electrolytes and bicarb improved We will cut down D5W IV fluid Blood sugar better controlled Liver enzymes still remains elevated Discussed with DAO March 29: Worsening leukocytosis Serum sodium lowering Blood sugar still elevated need insulin adjustment Continue to monitor electrolytes and renal parameters Continue per pulmonary Discussed with DAO Sarkar March 28: Serum sodium down to 160 Continue with D5W Continue per pulmonary March 27: Serum sodium vahe Patient retaining CO2 Will start D5W IV fluid Hold Diamox for now until further comments from metal wire coating operator Continue to monitor electrolytes Midodrine dose increased March 26: Remains unstable. Lasix and potassium chloride discontinued. IV Diamox initiated. ABG noted. Midodrine initiated. Continue per pulmonary and ID. Statins discontinued due to elevated liver enzymes. Continue to monitor electrolytes and renal parameters and ABG. Patient remains full code. 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 per costumer Taper steroids's deferred to metal wire coating operator Urine sodium is below 20 Serum ammonia is elevated will start lactulose Patient on Solu-Medrol and Solu-Cortef will discontinue Solu-Cortef Will try to gently diurese for severe edema meanwhile administering albumin 25% as needed Monitor electrolytes and renal parameters We will add midodrine 10 mg 3 times a day via NG tube Decrease dosage of IV Synthroid Discussed with DAO Starr Subjective ROS Limited/Unobtainable: Yes Objective Objective Last 24 Hour Vital Signs Date Time Temp Pulse Resp B/P (MAP) Pulse Ox O2 Delivery O2 Flow Rate FiO2 03/30/20 12:45 84 24 116/47 (70) 95 03/30/20 12:30 85 24 75/29 (44) 95 03/30/20 12:22 103/52 03/30/20 12:00 75 03/30/20 12:00 Mechanical Ventilator Mechanical Ventilator 03/30/20 12:00 98.5 84 24 103/52 (69) 96 03/30/20 11:30 93/46 03/30/20 11:30 85 24 93/46 (62) 90 03/30/20 11:05 83 24 60 03/30/20 11:00 84 24 87/36 (53) 92 03/30/20 10:30 82 24 92/30 (50) 93 03/30/20 10:00 82 24 90/40 (57) 94 03/30/20 09:30 83 24 90/40 (57) 91 03/30/20 09:07 98/26 03/30/20 09:00 85 24 76/61 (66) 97 03/30/20 08:30 86 24 91/39 (56) 92 03/30/20 08:00 Mechanical Ventilator Mechanical Ventilator 03/30/20 08:00 60 03/30/20 08:00 98.6 83 24 91/35 (53) 93 03/30/20 08:00 83 03/30/20 07:30 81 24 85/41 (56) 94 03/30/20 07:05 83 24 60 03/30/20 07:00 88/39 03/30/20 07:00 80 25 88/39 (55) 94 03/30/20 06:48 79 24 92/43 (59) 95 03/30/20 06:45 80 24 89/35 (53) 95 03/30/20 06:30 80 25 99/52 (68) 96 03/30/20 06:15 80 24 103/48 (66) 96 03/30/20 06:00 99/45 03/30/20 06:00 80 24 99/45 (63) 95 03/30/20 05:45 82 24 97/47 (64) 95 03/30/20 05:30 81 24 101/41 (61) 95 03/30/20 05:15 83 24 101/45 (63) 93 03/30/20 05:07 97/43 03/30/20 05:00 83 24 97/43 (61) 93 03/30/20 04:45 84 24 84/37 (53) 91 03/30/20 04:30 82 24 85/42 (56) 92 03/30/20 04:30 84/37 03/30/20 04:26 82 24 92/41 (58) 92 03/30/20 04:15 80 24 86/39 (55) 92 03/30/20 04:00 Mechanical Ventilator Mechanical Ventilator 03/30/20 04:00 86/39 03/30/20 04:00 98.4 80 24 89/36 (53) 93 03/30/20 04:00 60 03/30/20 03:49 78 24 93/39 (57) 93 03/30/20 03:45 78 24 87/39 (55) 94 03/30/20 03:34 76 03/30/20 03:30 79 24 88/41 (57) 92 03/30/20 03:29 79 24 60 03/30/20 03:15 79 24 100/42 (61) 94 03/30/20 03:00 100/42 03/30/20 03:00 78 24 100/24 (49) 94 03/30/20 02:45 81 27 97/32 (53) 90 03/30/20 02:30 79 24 112/45 (67) 98 03/30/20 02:15 79 24 103/53 (70) 98 03/30/20 02:00 103/53 03/30/20 02:00 80 24 106/44 (64) 98 03/30/20 01:45 80 24 103/39 (60) 98 03/30/20 01:30 81 24 102/36 (58) 96 03/30/20 01:25 107/51 03/30/20 01:15 81 24 107/51 (69) 97 03/30/20 01:00 81 24 104/40 (61) 97 03/30/20 01:00 107/51 03/30/20 00:45 82 24 101/46 (64) 96 03/30/20 00:30 81 24 98/42 (60) 95 03/30/20 00:15 78 24 96/46 (63) 96 03/30/20 00:00 Mechanical Ventilator Mechanical Ventilator 03/30/20 00:00 96/46 03/30/20 00:00 97.6 79 24 102/42 (62) 96 03/29/20 23:45 78 24 111/46 (67) 97 03/29/20 23:30 78 24 112/39 (63) 98 03/29/20 23:23 78 03/29/20 23:15 76 24 116/38 (64) 98 03/29/20 23:06 78 24 60 03/29/20 23:00 76 24 116/46 (69) 98 03/29/20 23:00 116/38 03/29/20 22:45 77 24 113/57 (75) 98 03/29/20 22:30 73 24 110/50 (70) 98 03/29/20 22:15 84 24 120/50 (73) 98 03/29/20 22:00 120/50 03/29/20 22:00 84 24 117/40 (65) 98 03/29/20 21:45 85 24 113/34 (60) 97 03/29/20 21:30 85 24 116/47 (70) 96 03/29/20 21:29 113/45 03/29/20 21:15 84 24 113/45 (67) 96 03/29/20 21:00 84 24 112/50 (70) 96 03/29/20 21:00 113/45 03/29/20 20:45 83 24 110/53 (72) 96 03/29/20 20:30 83 24 110/54 (72) 97 03/29/20 20:15 83 24 125/50 (75) 97 03/29/20 20:00 97.7 83 24 131/50 (77) 98 03/29/20 20:00 Mechanical Ventilator Mechanical Ventilator 03/29/20 20:00 125/50 03/29/20 20:00 60 03/29/20 19:45 83 24 129/58 (81) 97 03/29/20 19:39 84 03/29/20 19:30 84 24 132/50 (77) 97 03/29/20 19:15 84 24 130/49 (76) 97 03/29/20 19:08 84 24 60 03/29/20 19:00 128/48 03/29/20 19:00 84 24 128/48 (74) 96 03/29/20 18:30 84 24 120/43 (68) 96 03/29/20 18:19 112/51 03/29/20 18:00 99/46 03/29/20 18:00 83 24 99/46 (63) 95 03/29/20 17:00 83 24 134/49 (77) 96 03/29/20 17:00 134/49 03/29/20 16:15 86 24 107/45 (65) 93 03/29/20 16:00 86 03/29/20 16:00 97.9 87 24 114/49 (70) 93 03/29/20 16:00 114/49 03/29/20 16:00 60 03/29/20 16:00 Mechanical Ventilator Mechanical Ventilator 03/29/20 15:45 86 24 120/54 (76) 93 03/29/20 15:31 130/57 03/29/20 15:30 86 24 129/56 (80) 94 03/29/20 15:15 90 29 130/57 (81) 83 03/29/20 15:07 86 24 60 03/29/20 15:00 83 24 124/58 (80) 94 03/29/20 15:00 124/58 03/29/20 14:30 82 24 137/74 (95) 93 03/29/20 14:00 82 24 149/63 (91) 94 03/29/20 14:00 149/63 03/29/20 13:30 83 24 146/56 (86) 94 Intake and Output 03/29/20 03/30/20 19:00 07:00 Intake Total 2764.563 ml 3112.0523 ml Output Total 905 ml 1200 ml Balance 1859.563 ml 1912.0523 ml Free Water 200 ml 450 ml IV Total 1964.563 ml 2062.0523 ml Tube Feeding 500 ml 600 ml Other 100 ml Output Urine Total 905 ml 1200 ml # Bowel Movements 1 Laboratory Tests 03/30/20 09:10: White Blood Count 26.8*H, Red Blood Count 2.62L, Hemoglobin 9.3L, Hematocrit 28.2L, Mean Corpuscular Volume 107H, Mean Corpuscular Hemoglobin 35.4H, Mean Corpuscular Hemoglobin Concent 33.0, Red Cell Distribution Width 21.6H, Platelet Count 68L, Mean Platelet Volume 8.6, Neutrophils (%) (Auto) , Lymphocytes (%) (Auto) , Monocytes (%) (Auto) , Eosinophils (%) (Auto) , Basophils (%) (Auto) , Differential Total Cells Counted 100, Neutrophils % ( Manual) 81H, Lymphocytes % (Manual) 10L, Monocytes % (Manual) 5, Eosinophils % ( Manual) 2, Basophils % (Manual) 0, Band Neutrophils 2, Nucleated Red Blood Cells 3, Platelet Estimate DecreasedL, Platelet Morphology Normal, Hypochromasia 2+, Anisocytosis 3+, Macrocytosis 1+, Spherocytes 1+, Sodium Level 142, Potassium Level 5.0, Chloride Level 103, Carbon Dioxide Level 40H, Anion Gap -1L, Blood Urea Nitrogen 53H, Creatinine 0.9, Estimat Glomerular Filtration Rate > 60, Glucose Level 171#H, Calcium Level 9.3, Phosphorus Level 4.2, Magnesium Level 2.6H, Total Bilirubin 1.7H, Direct Bilirubin 0.9H, Aspartate Amino Transf (AST/SGOT) 535H, Alanine Aminotransferase (ALT/SGPT) 281H , Alkaline Phosphatase 343H, Total Protein 5.9L, Albumin 1.9L, Globulin 4.0, Albumin/Globulin Ratio 0.5L Height (Feet): 5 Height (Inches): 1.00 Weight (Pounds): 225 General Appearance: no apparent distress Cardiovascular: tachycardia Respiratory/Chest: decreased breath sounds Objective No change Cristhian Granados MD March 30, 2020 13:29
--- NOTE | 2020-03-30 14:51 | Hematology/Onc Progress Note ---
Assessment/Plan Assessment/Plan Assessment and Recs # Pancytopenia -- multiple etiologies could be related to underlying liver disease, medication-induced, infection versus viral syndrome versus underlying bone marrow cause, in this case, has severe liver disease and cirrhosis, HEP C++ , also cellulitis, COVID19++ --> peripheral smear has been ordered and does not show significant abnormalities and none noted --> Medications have been reviewed --> Continue to monitor for improvement, trend cbc --> Hep panel and HIV are both negative --> US abd ordered to r/o cirrhosis and hepatosplenomegaly ->CIRRHOSIS IS NOTED , LARGE SPLEEN --> reverse isolation if ANC is <2000 --> Give neupogen if ANC <1000 --> Transfuse if hgb <7, with 1 unit prbc --> anemia panel ordered as well-->CW acd --> hgb trend 7-->7.1-->8.4-->8.2 -->8.7-->9.9-->9.2-->9.5-->9.1-->10.1 -->9 --> plt 145k-->152-->162k-->149k-->121k-->171k-->149-->163-->135 --> wbc 3.4-->3.5->3.9->4.4-->11-->10.8 -->15->23-->26-->27 --> abx: sameer/rifaximin-->levaquin /vanc-->sameer # Leukocytosis with Cellulitis of the lower extremities --> continue abx as needed as per id --> Started on IV antibiotics-->azithro/cefepime-->levaquin-->sameer --> as per surg recs, wound care --> on steriods at this time, likely contributor # Ftt --> remains on mirtazapine --> daily weights # Elevated LFTS --> as per gi --> due to cirrhosis # Respiratory failure --> s/p intubation 03/16 --> prone positioning as needed by pulm # Dvt ppx lovenox sq The timing of this note does not necessarily reflect the time of the patient was seen. Greatly appreciate consultation. Subjective Genitourinary: Denies: no symptoms, burning, discharge, frequency, flank pain, hematuria, incontinence, pain, urgency, other Endocrine: Denies: no symptoms, excessive sweating, flushing, intolerance to cold, intolerance to heat, increased hunger, increased thirst, increased urine, unexplained weight gain, unexplained weight loss, other Allergies: Coded Allergies: No Known Allergies (Unverified , 02/29/20) All Systems: reviewed and negative except above Subjective 03/02 no events, no bleeding, hgb 7.1, no hemolysis 03/03 s/p blood, hgb improved to 8.4, stool ob negtive, on abx 03/05 asleep, no acute distress, hgb 8.2 03/06 remains comfortable, on abx, plt remains low 03/07 is on nonrebreather, no night sweats, labs are noted 03/08 labs reviewed, being diuresed, seen by cards, psych, labs noted 03/09 lasix adjusted, wbc remains low at 3.9, reviewed meds, smear 03/10 no night sweats, no bleeding, labs noted, smear noted 03/12 labs noted, none completed, have reordered, cellulitis better 03/13 is continuing with chest pain, cards aware, no further studies until covid neg 03/14 labs noted, no bleeding, diuresis as needed, hgb stable 03/15 alseep is cooperative, no bleeding, meds noted 03/16 no bleeding or chills, hgb 10.8, no night sweats, no major events 03/17 now intubated, no bleeding, labs noted, dw rn 03/19 remains intubated, no bleeding, labs noted, on pressors 03/20 prone posiition, seen by gi and renal, nob leeding, hgb 10.1 03/21 sedated, remains agitated, pulling on 2p restraints, no bleeding 03/22 icu, h/h stable, finished plaq/zithro, no acute distress 03/23 in icu, remains restless no bleeding, labs noted, no bleeding 03/24 in icu, poor prognosis, no night sweats, no fc 03/26 on vent, unresponsive, no bleeding, wbc high is on abx and steriods 03/27 remains on vent, ngt, no bleeding, already on abx on steriods 03/28 labs noted, no bleeding, wbc 23k, hgb 9, still with ongoing leukocytosis, ngt feeds 03/29 icu, started on sameer, steroids being tapered, wbc 26.4, no sob 03/30 no major changes, in icu, resp distress, on vent, wbc remains elevated Objective Objective Current Medications Medications (Trade) Dose Ordered Sig/Dolores Route PRN Reason Start Time Stop Time Status Last Admin Dose Admin Acetaminophen (Tylenol) 650 mg Q4H PRN ORAL Mild Pain (Pain Scale 1-3) 03/13/20 14:53 04/12/20 14:52 03/25/20 12:35 Acetaminophen (Tylenol) 650 mg Q4H PRN ORAL Temp >100 03/13/20 14:53 04/12/20 14:52 03/25/20 17:16 Chlorhexidine Gluconate (Lucretia-Hex 2%) 1 applic DAILY@2000 TOPIC 03/13/20 20:00 06/11/20 19:59 03/29/20 21:18 Dextrose 1,000 ml @ 50 mls/hr Q20H IV 03/30/20 14:00 04/29/20 13:59 03/30/20 13:43 Dextrose (Dextrose 50%) 25 ml Q30M PRN IV Hypoglycemia 03/28/20 06:45 06/26/20 06:44 Dextrose (Dextrose 50%) 50 ml Q30M PRN IV Hypoglycemia 03/28/20 06:45 06/26/20 06:44 Dopamine HCl/ Dextrose 250 ml @ 0 mls/hr Q24H IV 03/16/20 19:30 06/14/20 19:29 03/30/20 12:22 Fentanyl Citrate 1000 mcg/Sodium Chloride 100 ml @ 0 mls/hr Q24H IV 03/27/20 22:30 04/03/20 22:29 03/27/20 22:56 Hydralazine HCl (Apresoline) 10 mg Q6H PRN IV For High Blood Pressure 03/24/20 16:45 06/22/20 16:44 Insulin Aspart (NovoLOG) EVERY 4 HOURS SUBQ 03/26/20 09:00 06/24/20 08:59 03/30/20 13:44 Insulin Aspart (NovoLOG) 30 units EVERY 4 HOURS SUBQ 03/30/20 09:00 06/26/20 08:59 03/30/20 13:45 Insulin Detemir (Levemir) 50 units Q12HR SUBQ 03/29/20 09:00 06/20/20 18:59 03/30/20 09:59 Levothyroxine Sodium (Synthroid) 50 mcg DAILY IV 03/21/20 09:00 04/17/20 11:59 03/30/20 09:06 Lorazepam (Ativan 2mg/ml 1ml) 1 mg Q2H PRN IV For Anxiety 03/25/20 16:30 04/01/20 16:29 03/25/20 23:39 Meropenem 1 gm/ Sodium Chloride 55 ml @ 110 mls/hr Q8HR IVPB 03/29/20 14:00 04/03/20 13:59 03/30/20 13:43 Methylprednisolone Sodium Succinate (Solu-MEDROL) 10 mg DAILY IVP 03/30/20 09:00 04/02/20 08:59 03/30/20 09:06 Midodrine (Pro-Amatine) 10 mg THREE TIMES A DAY NG 03/27/20 09:00 06/20/20 12:29 03/30/20 13:43 Non-Formulary Medication (Non-Formulary Med) 1 ea DAILY IV 03/18/20 09:00 04/17/20 08:59 UNV Norepinephrine Bitartrate 4 mg/ Dextrose 250 ml @ 0 mls/hr Q24H PRN IV For hypotension 03/25/20 16:30 04/24/20 16:29 Vasopressin 100 units/Sodium Chloride 100 ml @ 0 mls/hr Q24H PRN IV For hypotension 03/16/20 11:00 04/15/20 10:59 03/19/20 18:03 Last 24 Hour Vital Signs Date Time Temp Pulse Resp B/P (MAP) Pulse Ox O2 Delivery O2 Flow Rate FiO2 03/30/20 12:45 84 24 116/47 (70) 95 03/30/20 12:30 85 24 75/29 (44) 95 03/30/20 12:22 103/52 03/30/20 12:00 75 03/30/20 12:00 Mechanical Ventilator Mechanical Ventilator 03/30/20 12:00 98.5 84 24 103/52 (69) 96 03/30/20 12:00 83 03/30/20 11:30 93/46 03/30/20 11:30 85 24 93/46 (62) 90 03/30/20 11:05 83 24 60 03/30/20 11:00 84 24 87/36 (53) 92 03/30/20 10:30 82 24 92/30 (50) 93 03/30/20 10:00 82 24 90/40 (57) 94 03/30/20 09:30 83 24 90/40 (57) 91 03/30/20 09:07 98/26 03/30/20 09:00 85 24 76/61 (66) 97 03/30/20 08:30 86 24 91/39 (56) 92 03/30/20 08:00 Mechanical Ventilator Mechanical Ventilator 03/30/20 08:00 60 03/30/20 08:00 98.6 83 24 91/35 (53) 93 03/30/20 08:00 83 03/30/20 07:30 81 24 85/41 (56) 94 03/30/20 07:05 83 24 60 03/30/20 07:00 88/39 03/30/20 07:00 80 25 88/39 (55) 94 03/30/20 06:48 79 24 92/43 (59) 95 03/30/20 06:45 80 24 89/35 (53) 95 03/30/20 06:30 80 25 99/52 (68) 96 03/30/20 06:15 80 24 103/48 (66) 96 03/30/20 06:00 99/45 03/30/20 06:00 80 24 99/45 (63) 95 03/30/20 05:45 82 24 97/47 (64) 95 03/30/20 05:30 81 24 101/41 (61) 95 03/30/20 05:15 83 24 101/45 (63) 93 03/30/20 05:07 97/43 03/30/20 05:00 83 24 97/43 (61) 93 03/30/20 04:45 84 24 84/37 (53) 91 03/30/20 04:30 82 24 85/42 (56) 92 03/30/20 04:30 84/37 5/14/20 04:26 82 24 92/41 (58) 92 03/30/20 04:15 80 24 86/39 (55) 92 03/30/20 04:00 Mechanical Ventilator Mechanical Ventilator 03/30/20 04:00 86/39 03/30/20 04:00 98.4 80 24 89/36 (53) 93 03/30/20 04:00 60 03/30/20 03:49 78 24 93/39 (57) 93 03/30/20 03:45 78 24 87/39 (55) 94 03/30/20 03:34 76 03/30/20 03:30 79 24 88/41 (57) 92 03/30/20 03:29 79 24 60 03/30/20 03:15 79 24 100/42 (61) 94 03/30/20 03:00 100/42 03/30/20 03:00 78 24 100/24 (49) 94 03/30/20 02:45 81 27 97/32 (53) 90 03/30/20 02:30 79 24 112/45 (67) 98 03/30/20 02:15 79 24 103/53 (70) 98 03/30/20 02:00 103/53 03/30/20 02:00 80 24 106/44 (64) 98 03/30/20 01:45 80 24 103/39 (60) 98 03/30/20 01:30 81 24 102/36 (58) 96 03/30/20 01:25 107/51 03/30/20 01:15 81 24 107/51 (69) 97 03/30/20 01:00 81 24 104/40 (61) 97 03/30/20 01:00 107/51 03/30/20 00:45 82 24 101/46 (64) 96 03/30/20 00:30 81 24 98/42 (60) 95 03/30/20 00:15 78 24 96/46 (63) 96 03/30/20 00:00 Mechanical Ventilator Mechanical Ventilator 03/30/20 00:00 96/46 03/30/20 00:00 97.6 79 24 102/42 (62) 96 03/29/20 23:45 78 24 111/46 (67) 97 03/29/20 23:30 78 24 112/39 (63) 98 03/29/20 23:23 78 03/29/20 23:15 76 24 116/38 (64) 98 03/29/20 23:06 78 24 60 03/29/20 23:00 76 24 116/46 (69) 98 03/29/20 23:00 116/38 03/29/20 22:45 77 24 113/57 (75) 98 03/29/20 22:30 73 24 110/50 (70) 98 03/29/20 22:15 84 24 120/50 (73) 98 03/29/20 22:00 120/50 03/29/20 22:00 84 24 117/40 (65) 98 03/29/20 21:45 85 24 113/34 (60) 97 03/29/20 21:30 85 24 116/47 (70) 96 03/29/20 21:29 113/45 03/29/20 21:15 84 24 113/45 (67) 96 03/29/20 21:00 84 24 112/50 (70) 96 03/29/20 21:00 113/45 03/29/20 20:45 83 24 110/53 (72) 96 03/29/20 20:30 83 24 110/54 (72) 97 03/29/20 20:15 83 24 125/50 (75) 97 03/29/20 20:00 97.7 83 24 131/50 (77) 98 03/29/20 20:00 Mechanical Ventilator Mechanical Ventilator 03/29/20 20:00 125/50 03/29/20 20:00 60 03/29/20 19:45 83 24 129/58 (81) 97 03/29/20 19:39 84 03/29/20 19:30 84 24 132/50 (77) 97 03/29/20 19:15 84 24 130/49 (76) 97 03/29/20 19:08 84 24 60 03/29/20 19:00 128/48 03/29/20 19:00 84 24 128/48 (74) 96 03/29/20 18:30 84 24 120/43 (68) 96 03/29/20 18:19 112/51 03/29/20 18:00 99/46 03/29/20 18:00 83 24 99/46 (63) 95 03/29/20 17:00 83 24 134/49 (77) 96 03/29/20 17:00 134/49 03/29/20 16:15 86 24 107/45 (65) 93 03/29/20 16:00 86 03/29/20 16:00 97.9 87 24 114/49 (70) 93 03/29/20 16:00 114/49 03/29/20 16:00 60 03/29/20 16:00 Mechanical Ventilator Mechanical Ventilator 03/29/20 15:45 86 24 120/54 (76) 93 03/29/20 15:31 130/57 03/29/20 15:30 86 24 129/56 (80) 94 03/29/20 15:15 90 29 130/57 (81) 83 03/29/20 15:07 86 24 60 03/29/20 15:00 83 24 124/58 (80) 94 03/29/20 15:00 124/58 03/29/20 14:30 82 24 137/74 (95) 93 03/29/20 14:00 82 24 149/63 (91) 94 03/29/20 14:00 149/63 03/29/20 13:30 83 24 146/56 (86) 94 03/29/20 13:00 128/62 03/29/20 13:00 84 24 128/62 (84) 94 03/29/20 12:30 85 24 135/75 (95) 100 03/29/20 12:16 122/53 03/29/20 12:00 Mechanical Ventilator Mechanical Ventilator 03/29/20 12:00 88 03/29/20 12:00 97.7 85 24 122/53 (76) 93 03/29/20 12:00 122/53 03/29/20 11:30 88 24 104/43 (63) 90 03/29/20 11:00 101/47 03/29/20 11:00 86 24 101/47 (65) 92 03/29/20 10:58 86 24 60 03/29/20 10:30 84 24 104/45 (64) 93 03/29/20 10:00 112/42 03/29/20 10:00 82 24 112/42 (65) 95 03/29/20 09:30 82 24 110/39 (62) 96 03/29/20 09:10 109/44 03/29/20 09:01 60 03/29/20 09:00 83 24 109/44 (65) 97 03/29/20 09:00 109/44 03/29/20 08:30 84 25 82/34 (50) 97 03/29/20 08:30 60 03/29/20 08:00 99.1 88 24 86/47 (60) 94 03/29/20 08:00 50 03/29/20 08:00 86/47 03/29/20 08:00 87 03/29/20 08:00 Mechanical Ventilator Mechanical Ventilator 03/29/20 07:30 92 24 107/48 (67) 94 03/29/20 07:07 92 24 50 03/29/20 07:00 86 24 89/47 (61) 88 03/29/20 07:00 102/54 03/29/20 06:45 82 24 102/54 (70) 94 03/29/20 06:30 82 24 105/52 (69) 95 03/29/20 06:15 82 24 107/54 (71) 95 03/29/20 06:00 107/54 03/29/20 06:00 82 24 111/60 (77) 95 03/29/20 05:45 83 24 110/57 (74) 95 03/29/20 05:30 131/59 03/29/20 05:30 84 24 131/59 (83) 96 03/29/20 05:15 83 24 96/50 (65) 96 03/29/20 05:13 127/64 03/29/20 05:00 86 24 127/64 (85) 95 03/29/20 05:00 96/50 03/29/20 04:45 87 24 116/65 (82) 94 03/29/20 04:30 88 24 112/54 (73) 93 03/29/20 04:15 89 24 112/55 (74) 93 03/29/20 04:00 117/55 03/29/20 04:00 50 03/29/20 04:00 98.5 88 24 117/55 (75) 94 03/29/20 04:00 Mechanical Ventilator Mechanical Ventilator 03/29/20 03:55 88 24 50 03/29/20 03:45 87 24 120/60 (80) 94 03/29/20 03:30 86 24 126/64 (84) 94 03/29/20 03:20 84 24 112/55 (74) 94 03/29/20 03:17 83 25 76/60 (65) 95 03/29/20 03:15 76/55 03/29/20 03:15 83 26 89/43 (58) 100 03/29/20 03:01 81 03/29/20 03:00 101/50 03/29/20 03:00 82 24 101/50 (67) 99 03/29/20 02:45 81 24 99/54 (69) 100 03/29/20 02:30 81 24 110/47 (68) 100 03/29/20 02:15 81 24 109/62 (78) 100 03/29/20 02:00 110/57 03/29/20 02:00 81 24 110/57 (74) 100 03/29/20 01:45 82 24 116/56 (76) 100 03/29/20 01:35 113/54 03/29/20 01:30 82 24 113/54 (73) 100 03/29/20 01:15 83 24 111/53 (72) 100 03/29/20 01:00 83 24 108/57 (74) 100 03/29/20 01:00 111/53 03/29/20 00:45 84 24 108/54 (72) 100 03/29/20 00:30 85 24 115/56 (75) 100 03/29/20 00:15 85 24 106/54 (71) 99 03/29/20 00:00 98.3 86 24 103/51 (68) 99 03/29/20 00:00 106/54 03/29/20 00:00 Mechanical Ventilator Mechanical Ventilator 03/29/20 00:00 50 03/28/20 23:45 87 24 100/54 (69) 98 03/28/20 23:37 88 24 91/49 (63) 98 03/28/20 23:30 88 24 91/47 (62) 98 03/28/20 23:19 88 03/28/20 23:15 88 24 94/53 (67) 99 03/28/20 23:11 87 24 50 03/28/20 23:00 87 24 106/56 (73) 99 03/28/20 23:00 94/53 03/28/20 22:45 86 24 111/61 (78) 99 03/28/20 22:30 24 106/56 Mechanical Ventilator 50 03/28/20 22:30 85 24 113/60 (77) 99 03/28/20 22:15 85 24 124/63 (83) 99 03/28/20 22:00 124/63 03/28/20 22:00 85 24 126/64 (84) 98 03/28/20 21:51 89 24 81/47 (58) 95 03/28/20 21:45 90 24 66/47 (53) 95 03/28/20 21:30 84 24 129/53 (78) 99 03/28/20 21:30 126/64 03/28/20 21:15 85 24 132/64 (86) 100 03/28/20 21:00 85 24 132/59 (83) 100 03/28/20 21:00 132/64 03/28/20 20:45 85 24 128/64 (85) 100 03/28/20 20:30 85 24 122/67 (85) 100 03/28/20 20:15 86 24 122/64 (83) 100 03/28/20 20:00 50 03/28/20 20:00 98.0 87 24 120/64 (82) 100 03/28/20 20:00 Mechanical Ventilator Mechanical Ventilator 03/28/20 20:00 126/64 03/28/20 19:45 88 24 120/63 (82) 100 03/28/20 19:42 88 24 50 03/28/20 19:29 89 03/28/20 19:00 108/59 03/28/20 19:00 89 24 108/59 (75) 99 03/28/20 18:30 88 24 122/62 (82) 99 03/28/20 18:00 87 24 118/56 (76) 99 03/28/20 18:00 118/56 03/28/20 17:42 153/69 03/28/20 17:30 86 24 110/64 (79) 99 03/28/20 17:00 86 24 146/72 (96) 99 03/28/20 17:00 146/72 03/28/20 16:30 86 24 153/69 (97) 99 03/28/20 16:00 Mechanical Ventilator Mechanical Ventilator 03/28/20 16:00 50 5/12/20 16:00 88 03/28/20 16:00 24 166/73 Mechanical Ventilator 24 03/28/20 16:00 166/73 03/28/20 16:00 97.8 89 24 166/73 (104) 99 03/28/20 15:30 90 24 157/76 (103) 99 03/28/20 15:13 84 24 50 03/28/20 15:00 24 155/73 Mechanical Ventilator 50 03/28/20 15:00 155/73 03/28/20 15:00 90 24 155/73 (100) 99 Intake and Output 03/29/20 03/30/20 19:00 07:00 Intake Total 2764.563 ml 3112.0523 ml Output Total 905 ml 1200 ml Balance 1859.563 ml 1912.0523 ml Free Water 200 ml 450 ml IV Total 1964.563 ml 2062.0523 ml Tube Feeding 500 ml 600 ml Other 100 ml Output Urine Total 905 ml 1200 ml # Bowel Movements 1 Labs Test 03/27/20 17:12 03/28/20 05:09 03/29/20 04:05 03/29/20 08:05 Arterial Blood pH 7.380 (7.350-7.450) 7.371 (7.350-7.450) Arterial Blood Partial Pressure CO2 77.8 mmHg (35.0-45.0) 73.5 mmHg (35.0-45.0) Arterial Blood Partial Pressure O2 101.9 mmHg (75.0-100.0) 64.5 mmHg (75.0-100.0) Arterial Blood HCO3 45.0 mmol/L (22.0-26.0) 41.6 mmol/L (22.0-26.0) Arterial Blood Oxygen Saturation 96.4 % (95-100) 87.9 % (95-100) Arterial Blood Base Excess 17.0 (-2-2) 14 (-2-2) [place] Test Positive N/a White Blood Count 22.5 K/UL (4.8-10.8) 26.4 K/UL (4.8-10.8) Red Blood Count 2.74 M/UL (4.20-5.40) 2.85 M/UL (4.20-5.40) Hemoglobin 9.8 G/DL (12.0-16.0) 10.1 G/DL (12.0-16.0) Hematocrit 30.6 % (37.0-47.0) 31.7 % (37.0-47.0) Mean Corpuscular Volume 112 FL (80-99) 111 FL (80-99) Mean Corpuscular Hemoglobin 35.8 PG (27.0-31.0) 35.3 PG (27.0-31.0) Mean Corpuscular Hemoglobin Concent 32.1 G/DL (32.0-36.0) 31.7 G/DL (32.0-36.0) Red Cell Distribution Width 22.4 % (11.6-14.8) 22.1 % (11.6-14.8) Platelet Count 140 K/UL (150-450) 135 K/UL (150-450) Mean Platelet Volume 7.1 FL (6.5-10.1) 7.5 FL (6.5-10.1) Neutrophils (%) (Auto) % (45.0-75.0) % (45.0-75.0) Lymphocytes (%) (Auto) % (20.0-45.0) % (20.0-45.0) Monocytes (%) (Auto) % (1.0-10.0) % (1.0-10.0) Eosinophils (%) (Auto) % (0.0-3.0) % (0.0-3.0) Basophils (%) (Auto) % (0.0-2.0) % (0.0-2.0) Differential Total Cells Counted 100 100 Neutrophils % (Manual) 87 % (45-75) 88 % (45-75) Lymphocytes % (Manual) 5 % (20-45) 3 % (20-45) Monocytes % (Manual) 7 % (1-10) 9 % (1-10) Eosinophils % (Manual) 1 % (0-3) 0 % (0-3) Basophils % (Manual) 0 % (0-2) 0 % (0-2) Band Neutrophils 0 % (0-8) 0 % (0-8) Platelet Estimate Decreased Decreased Platelet Morphology Normal Normal Anisocytosis 2+ 3+ Macrocytosis 2+ 2+ Sodium Level 160 MMOL/L (136-145) 154 MMOL/L (136-145) Potassium Level 4.3 MMOL/L (3.5-5.1) 4.4 MMOL/L (3.5-5.1) Chloride Level 117 MMOL/L (98-107) 110 MMOL/L (98-107) Carbon Dioxide Level 44 MMOL/L (21-32) 43 MMOL/L (21-32) Blood Urea Nitrogen 38 mg/dL (7-18) 48 mg/dL (7-18) Creatinine 0.9 MG/DL (0.55-1.30) 0.9 MG/DL (0.55-1.30) Estimat Glomerular Filtration Rate > 60 mL/min (>60) > 60 mL/min (>60) Glucose Level 446 MG/DL (74-106) 402 MG/DL (74-106) Uric Acid 5.5 MG/DL (2.6-7.2) 5.9 MG/DL (2.6-7.2) Calcium Level 9.4 MG/DL (8.5-10.1) 9.6 MG/DL (8.5-10.1) Phosphorus Level 4.1 MG/DL (2.5-4.9) 3.4 MG/DL (2.5-4.9) Magnesium Level 2.9 MG/DL (1.8-2.4) 2.7 MG/DL (1.8-2.4) Total Bilirubin 1.8 MG/DL (0.2-1.0) 1.8 MG/DL (0.2-1.0) Direct Bilirubin 1.1 MG/DL (0.0-0.3) 1.1 MG/DL (0.0-0.3) Gamma Glutamyl Transpeptidase 599 U/L (5-85) Aspartate Amino Transf (AST/SGOT) 354 U/L (15-37) 356 U/L (15-37) Alanine Aminotransferase (ALT/SGPT) 296 U/L (12-78) 269 U/L (12-78) Alkaline Phosphatase 279 U/L (46-116) 341 U/L (46-116) Ammonia 75 umol/L (11-32) Total Creatine Kinase 62 U/L (26-308) C-Reactive Protein, Quantitative 2.1 mg/dL (0.00-0.90) Pro-B-Type Natriuretic Peptide 1806 pg/mL (0-125) Total Protein 7.0 G/DL (6.4-8.2) 6.6 G/DL (6.4-8.2) Albumin 2.3 G/DL (3.4-5.0) 2.2 G/DL (3.4-5.0) Globulin 4.7 g/dL 4.4 g/dL Albumin/Globulin Ratio 0.5 (1.0-2.7) 0.5 (1.0-2.7) Hypochromasia 1+ Anion Gap 0 mmol/L (5-15) Test 03/29/20 12:30 03/30/20 09:10 Urine Color Yellow Urine Appearance Cloudy Urine pH 5 (4.5-8.0) Urine Specific [place] 1.010 (1.005-1.035) Urine Protein Negative (NEGATIVE) Urine Glucose (UA) Negative (NEGATIVE) Urine Ketones Negative (NEGATIVE) Urine Blood 1+ (NEGATIVE) Urine Nitrite Negative (NEGATIVE) Urine Bilirubin Negative (NEGATIVE) Urine Urobilinogen Normal MG/DL (0.0-1.0) Urine Leukocyte Esterase 2+ (NEGATIVE) Urine RBC 0-2 /HPF (0 - 2) Urine WBC 0-2 /HPF (0 - 2) Urine Squamous Epithelial Cells Few /LPF (NONE/OCC) Urine Bacteria Occasional /HPF (NONE) Urine Yeast Many /HPF (NONE) White Blood Count 26.8 K/UL (4.8-10.8) Red Blood Count 2.62 M/UL (4.20-5.40) Hemoglobin 9.3 G/DL (12.0-16.0) Hematocrit 28.2 % (37.0-47.0) Mean Corpuscular Volume 107 FL (80-99) Mean Corpuscular Hemoglobin 35.4 PG (27.0-31.0) Mean Corpuscular Hemoglobin Concent 33.0 G/DL (32.0-36.0) Red Cell Distribution Width 21.6 % (11.6-14.8) Platelet Count 68 K/UL (150-450) Mean Platelet Volume 8.6 FL (6.5-10.1) Neutrophils (%) (Auto) % (45.0-75.0) Lymphocytes (%) (Auto) % (20.0-45.0) Monocytes (%) (Auto) % (1.0-10.0) Eosinophils (%) (Auto) % (0.0-3.0) Basophils (%) (Auto) % (0.0-2.0) Differential Total Cells Counted 100 Neutrophils % (Manual) 81 % (45-75) Lymphocytes % (Manual) 10 % (20-45) Monocytes % (Manual) 5 % (1-10) Eosinophils % (Manual) 2 % (0-3) Basophils % (Manual) 0 % (0-2) Band Neutrophils 2 % (0-8) Nucleated Red Blood Cells 3 /100 WBC Platelet Estimate Decreased Platelet Morphology Normal Hypochromasia 2+ Anisocytosis 3+ Macrocytosis 1+ Spherocytes 1+ Sodium Level 142 MMOL/L (136-145) Potassium Level 5.0 MMOL/L (3.5-5.1) Chloride Level 103 MMOL/L (98-107) Carbon Dioxide Level 40 MMOL/L (21-32) Anion Gap -1 mmol/L (5-15) Blood Urea Nitrogen 53 mg/dL (7-18) Creatinine 0.9 MG/DL (0.55-1.30) Estimat Glomerular Filtration Rate > 60 mL/min (>60) Glucose Level 171 MG/DL (74-106) Calcium Level 9.3 MG/DL (8.5-10.1) Phosphorus Level 4.2 MG/DL (2.5-4.9) Magnesium Level 2.6 MG/DL (1.8-2.4) Total Bilirubin 1.7 MG/DL (0.2-1.0) Direct Bilirubin 0.9 MG/DL (0.0-0.3) Aspartate Amino Transf (AST/SGOT) 535 U/L (15-37) Alanine Aminotransferase (ALT/SGPT) 281 U/L (12-78) Alkaline Phosphatase 343 U/L (46-116) Total Protein 5.9 G/DL (6.4-8.2) Albumin 1.9 G/DL (3.4-5.0) Globulin 4.0 g/dL Albumin/Globulin Ratio 0.5 (1.0-2.7) Height (Feet): 5 Height (Inches): 1.00 Weight (Pounds): 225 Objective Physical Exam: Vitals: reviewed General: NAD HEENT: nc, at++ngt Neck: supple Chest: crackles b/l, mech breath sounds ++intubated Cardiovascular: RRR, no s3, s4 EXT ++ Significant edema and erythema bilateral lower extremity, patient also has blistering on both feet Neurologic: sedated Skin: other - As above Brett Mcclain MD March 30, 2020 14:51
--- NOTE | 2020-03-30 19:35 | Surgery Progress Note ---
Surgery Progress Note Subjective Symptoms: worse Objective Last 24 Hour Vital Signs Date Time Temp Pulse Resp B/P (MAP) Pulse Ox O2 Delivery O2 Flow Rate FiO2 03/30/20 19:22 80 24 95 Mechanical Ventilator 75 03/30/20 19:22 80 24 60 03/30/20 19:00 80 24 109/58 (75) 95 03/30/20 18:30 80 24 114/57 (76) 95 03/30/20 18:14 125/60 03/30/20 18:00 80 24 125/60 (81) 96 03/30/20 17:30 80 24 127/54 (78) 96 03/30/20 17:00 80 24 130/51 (77) 96 03/30/20 16:30 81 24 124/71 (88) 96 03/30/20 16:00 82 03/30/20 16:00 75 03/30/20 16:00 Mechanical Ventilator Mechanical Ventilator 03/30/20 16:00 81 24 128/61 (83) 95 03/30/20 15:25 110/62 03/30/20 15:05 102 24 60 03/30/20 15:00 80 24 113/54 (73) 93 03/30/20 14:30 83 24 120/51 (74) 94 03/30/20 14:00 83 24 123/56 (78) 95 03/30/20 13:30 82 24 109/42 (64) 96 03/30/20 13:00 83 24 120/47 (71) 97 03/30/20 12:45 84 24 116/47 (70) 95 03/30/20 12:30 85 24 75/29 (44) 95 03/30/20 12:22 103/52 03/30/20 12:00 75 03/30/20 12:00 Mechanical Ventilator Mechanical Ventilator 03/30/20 12:00 98.5 84 24 103/52 (69) 96 03/30/20 12:00 83 03/30/20 11:30 93/46 03/30/20 11:30 85 24 93/46 (62) 90 03/30/20 11:05 83 24 60 03/30/20 11:00 84 24 87/36 (53) 92 03/30/20 10:30 82 24 92/30 (50) 93 03/30/20 10:00 82 24 90/40 (57) 94 03/30/20 09:30 83 24 90/40 (57) 91 03/30/20 09:07 98/26 03/30/20 09:00 85 24 76/61 (66) 97 03/30/20 08:30 86 24 91/39 (56) 92 03/30/20 08:00 Mechanical Ventilator Mechanical Ventilator 03/30/20 08:00 60 03/30/20 08:00 98.6 83 24 91/35 (53) 93 03/30/20 08:00 83 03/30/20 07:30 81 24 85/41 (56) 94 03/30/20 07:05 83 24 60 03/30/20 07:00 88/39 03/30/20 07:00 80 25 88/39 (55) 94 03/30/20 06:48 79 24 92/43 (59) 95 03/30/20 06:45 80 24 89/35 (53) 95 03/30/20 06:30 80 25 99/52 (68) 96 03/30/20 06:15 80 24 103/48 (66) 96 03/30/20 06:00 99/45 03/30/20 06:00 80 24 99/45 (63) 95 03/30/20 05:45 82 24 97/47 (64) 95 03/30/20 05:30 81 24 101/41 (61) 95 03/30/20 05:15 83 24 101/45 (63) 93 03/30/20 05:07 97/43 03/30/20 05:00 83 24 97/43 (61) 93 03/30/20 04:45 84 24 84/37 (53) 91 03/30/20 04:30 82 24 85/42 (56) 92 03/30/20 04:30 84/37 03/30/20 04:26 82 24 92/41 (58) 92 03/30/20 04:15 80 24 86/39 (55) 92 03/30/20 04:00 Mechanical Ventilator Mechanical Ventilator 03/30/20 04:00 86/39 03/30/20 04:00 98.4 80 24 89/36 (53) 93 03/30/20 04:00 60 03/30/20 03:49 78 24 93/39 (57) 93 03/30/20 03:45 78 24 87/39 (55) 94 03/30/20 03:34 76 03/30/20 03:30 79 24 88/41 (57) 92 03/30/20 03:29 79 24 60 03/30/20 03:15 79 24 100/42 (61) 94 03/30/20 03:00 100/42 03/30/20 03:00 78 24 100/24 (49) 94 03/30/20 02:45 81 27 97/32 (53) 90 03/30/20 02:30 79 24 112/45 (67) 98 03/30/20 02:15 79 24 103/53 (70) 98 03/30/20 02:00 103/53 03/30/20 02:00 80 24 106/44 (64) 98 03/30/20 01:45 80 24 103/39 (60) 98 03/30/20 01:30 81 24 102/36 (58) 96 03/30/20 01:25 107/51 03/30/20 01:15 81 24 107/51 (69) 97 03/30/20 01:00 81 24 104/40 (61) 97 03/30/20 01:00 107/51 03/30/20 00:45 82 24 101/46 (64) 96 03/30/20 00:30 81 24 98/42 (60) 95 03/30/20 00:15 78 24 96/46 (63) 96 03/30/20 00:00 Mechanical Ventilator Mechanical Ventilator 03/30/20 00:00 96/46 03/30/20 00:00 97.6 79 24 102/42 (62) 96 03/29/20 23:45 78 24 111/46 (67) 97 03/29/20 23:30 78 24 112/39 (63) 98 03/29/20 23:23 78 03/29/20 23:15 76 24 116/38 (64) 98 03/29/20 23:06 78 24 60 03/29/20 23:00 76 24 116/46 (69) 98 03/29/20 23:00 116/38 03/29/20 22:45 77 24 113/57 (75) 98 03/29/20 22:30 73 24 110/50 (70) 98 5/13/20 22:15 84 24 120/50 (73) 98 03/29/20 22:00 120/50 03/29/20 22:00 84 24 117/40 (65) 98 03/29/20 21:45 85 24 113/34 (60) 97 03/29/20 21:30 85 24 116/47 (70) 96 03/29/20 21:29 113/45 03/29/20 21:15 84 24 113/45 (67) 96 03/29/20 21:00 84 24 112/50 (70) 96 03/29/20 21:00 113/45 03/29/20 20:45 83 24 110/53 (72) 96 03/29/20 20:30 83 24 110/54 (72) 97 03/29/20 20:15 83 24 125/50 (75) 97 03/29/20 20:00 97.7 83 24 131/50 (77) 98 03/29/20 20:00 Mechanical Ventilator Mechanical Ventilator 03/29/20 20:00 125/50 03/29/20 20:00 60 03/29/20 19:45 83 24 129/58 (81) 97 03/29/20 19:39 84 I&O Intake and Output 03/29/20 03/30/20 19:00 07:00 Intake Total 2764.563 ml 3112.0523 ml Output Total 905 ml 1200 ml Balance 1859.563 ml 1912.0523 ml Free Water 200 ml 450 ml IV Total 1964.563 ml 2062.0523 ml Tube Feeding 500 ml 600 ml Other 100 ml Output Urine Total 905 ml 1200 ml # Bowel Movements 1 Dressing: dry Respiratory: decreased breath sounds Abdomen: present bowel sounds Extremities: edema Laboratory Tests Test 03/30/20 09:10 White Blood Count 26.8 K/UL (4.8-10.8) *H Red Blood Count 2.62 M/UL (4.20-5.40) L Hemoglobin 9.3 G/DL (12.0-16.0) L Hematocrit 28.2 % (37.0-47.0) L Mean Corpuscular Volume 107 FL (80-99) H Mean Corpuscular Hemoglobin 35.4 PG (27.0-31.0) H Mean Corpuscular Hemoglobin Concent 33.0 G/DL (32.0-36.0) Red Cell Distribution Width 21.6 % (11.6-14.8) H Platelet Count 68 K/UL (150-450) L Mean Platelet Volume 8.6 FL (6.5-10.1) Neutrophils (%) (Auto) % (45.0-75.0) Lymphocytes (%) (Auto) % (20.0-45.0) Monocytes (%) (Auto) % (1.0-10.0) Eosinophils (%) (Auto) % (0.0-3.0) Basophils (%) (Auto) % (0.0-2.0) Differential Total Cells Counted 100 Neutrophils % (Manual) 81 % (45-75) H Lymphocytes % (Manual) 10 % (20-45) L Monocytes % (Manual) 5 % (1-10) Eosinophils % (Manual) 2 % (0-3) Basophils % (Manual) 0 % (0-2) Band Neutrophils 2 % (0-8) Nucleated Red Blood Cells 3 /100 WBC Platelet Estimate Decreased L Platelet Morphology Normal Hypochromasia 2+ Anisocytosis 3+ Macrocytosis 1+ Spherocytes 1+ Sodium Level 142 MMOL/L (136-145) Potassium Level 5.0 MMOL/L (3.5-5.1) Chloride Level 103 MMOL/L (98-107) Carbon Dioxide Level 40 MMOL/L (21-32) H Anion Gap -1 mmol/L (5-15) L Blood Urea Nitrogen 53 mg/dL (7-18) H Creatinine 0.9 MG/DL (0.55-1.30) Estimat Glomerular Filtration Rate > 60 mL/min (>60) Glucose Level 171 MG/DL (74-106) #H Calcium Level 9.3 MG/DL (8.5-10.1) Phosphorus Level 4.2 MG/DL (2.5-4.9) Magnesium Level 2.6 MG/DL (1.8-2.4) H Total Bilirubin 1.7 MG/DL (0.2-1.0) H Direct Bilirubin 0.9 MG/DL (0.0-0.3) H Aspartate Amino Transf (AST/SGOT) 535 U/L (15-37) H Alanine Aminotransferase (ALT/SGPT) 281 U/L (12-78) H Alkaline Phosphatase 343 U/L (46-116) H Total Protein 5.9 G/DL (6.4-8.2) L Albumin 1.9 G/DL (3.4-5.0) L Globulin 4.0 g/dL Albumin/Globulin Ratio 0.5 (1.0-2.7) L Plan Problems: (1) Cellulitis Assessment & Plan: bilateral lower extremity cellulitis / edema chronic venous status changes dermatitis no abscess no purulent drainage ulcerations forming. keep lower extremity elevated while in bed apply skin protectant / moisturizing cream daily okay to shower okay to wrap soft after cream abx as per ID for cellulitis okay for diet duplex ordered trend labs will follow with recs thank you No evidence of deep venous thrombosis involving the visualized veins of the RIGHT lower extremity. refused eval of left COVID ++ cxr noted cont current supportive care improving labs stable improving slowly wean pressors as tolerated Patient is acutely worsened intubated on vent support 2 pressors now worsening labs worsening Prognosis is guarded we will continue with maximal support efforts weaning vent weaning pressors leukocytosis trend lft's Diffuse bilateral interstitial and airspace opacities (2) COVID-19 Assessment & Plan: see above Theron Sotomayor March 30, 2020 19:35
--- NOTE | 2020-03-30 20:44 | Pulmonolgy Critical Care Note ---
Critical Care - Asmt/Plan Assessment/Plan: Pulmonary CCM Progress Note HPI Patient is a 59 year old woman with significant obesity, admitted with bilateral lower extremity cellulitis, had complained of increased swelling and redness to both of her feet and legs Had elevated BNP on admission, persistent edema since admission, worsening hypoxia. Patient had previous hospitalizations for cellulitis, PMH Hypothyroidism, Obesity, Cirrhosis, Anemia, Anxiety, Cellulitis Remains unresponsive off sedation > 24 hours, pupils dilated, non reactive, not triggering ventilator, CT/Neuro consult pending COVID 19 positive, Pneumonia, Respiratory failure VQ no significant perfusion abnormality, prev LE dupplex negative on one leg Being diuresed PRN, slightly improving infiltrates on CXR, on ACVC, did not tolerating Proning Some improvement in PaO2/FIO2, VC settings adjusted, P 10, FIO2 now 75%%, has elevated PaCO2 which is increasing Renal following Hypothyroidism, elevated glucose, Endocrine following Awaiting Remdasovir, [facility] - [facility] requested for when available, [facility] - not available as yet Received IL6 inhibitor inititial dose (4mg/Kg - all that was available), subsequent dose pending, on steroids - being weaned 20 mg daily Seen earlier Allergies: No Known Allergies Past Medical History: Obesity, Cirrhosis, Anemia, Anxiety, Cellulitis, Hypothyroidism All Other Systems: negative except mentioned in HPI Physical Exam Vital Signs Noted General Appearance: Obese, no reaction to pain despite no sedation, intubated Head: normocephalic, atraumatic Eyes: pupils dilated and non responsive to light bilaterally ENT: moist MM, no LN Respiratory: Bilateral crackles, bilateral rhonchi, not overbreathing the ventilator Cardiovascular: regular rate, rhythm, HS1, HS2 RRR Gastrointestinal: Obese, soft non tender, ND Musculoskeletal: Mild edema and erythema bilateral lower extremity, patient has crusting on both feet, Neurologic: non responsive, no focal signs noted, no seizures, no response to pain Impression: Covid Pneumonia, s/p IL6 inhibitor, sp Hydroxychloroquine, Ivermectin Worsening hypoxia, worsening PCO2 Bilateral dilated non reactive pupils, patient unresponsive despite no sedation Not triggering ventilator No response to pain Increased WCC - possible secondary to steroids ID following Bilateral Lower Extremity Cellulitis Elevated NPA, severe bilateral edema - improving Cirrhosis, elevated transaminases/ammonia Splenomegaly Anemia Anxiety Hyponatremia Hypothyroidism Plan Neurology Consultation/CT head pending IV Antibiotics per ID On trial of steroids - currently 10 mg daily, being weaned, s/p IL6 inhibitor Diurese as tolerated, note persistently elevated BNP Surgery following for wounds Hematology following for anemia, observing for Neutropenia/thrombocytopenia Diuresed previously Renal following for hypernatremia Endocrine following for Hypothyroidism, on ISS Monitor labs Bronchodilators PPX - SCD AC VC Proning PRN Supplement electrolytes PRN Albuterol PRN [facility] C[facility] CONSULTANT Medications Again d/w Patients daughter Tri - discussed grave prognosis, possibility of patient having had possible stroke/IC event, suggested DNAR - wants full code Case d/w RN Previously [facility] - Remdesavir ordered, awaiting supply, awaiting next dose on IL6 inhibitor once supply available Labs Noted Chest X-Ray: Cardiomegaly, left lower lobe atelectasis versus effusion, worsening infiltrates/congestion Subjective ROS Limited/Unobtainable: No Constitutional: Reports: no symptoms Gastrointestinal/Abdominal: Reports: no symptoms Musculoskeletal: Reports: other - SOB Allergies: Coded Allergies: No Known Allergies (Unverified , 02/29/20) ICU time 50 minutes Critical Care - Objective Last 24 Hour Vital Signs Date Time Temp Pulse Resp B/P (MAP) Pulse Ox O2 Delivery O2 Flow Rate FiO2 03/30/20 20:00 Mechanical Ventilator Mechanical Ventilator 03/30/20 20:00 98.3 81 24 109/81 (90) 95 03/30/20 20:00 75 03/30/20 19:30 81 24 115/56 (75) 94 03/30/20 19:22 80 24 95 Mechanical Ventilator 75 03/30/20 19:22 80 24 75 03/30/20 19:00 80 24 109/58 (75) 95 03/30/20 18:30 80 24 114/57 (76) 95 03/30/20 18:14 125/60 03/30/20 18:00 80 24 125/60 (81) 96 03/30/20 17:30 80 24 127/54 (78) 96 03/30/20 17:00 80 24 130/51 (77) 96 03/30/20 16:30 81 24 124/71 (88) 96 03/30/20 16:00 82 03/30/20 16:00 75 03/30/20 16:00 Mechanical Ventilator Mechanical Ventilator 03/30/20 16:00 81 24 128/61 (83) 95 03/30/20 15:25 110/62 03/30/20 15:05 102 24 60 03/30/20 15:00 80 24 113/54 (73) 93 03/30/20 14:30 83 24 120/51 (74) 94 03/30/20 14:00 83 24 123/56 (78) 95 03/30/20 13:30 82 24 109/42 (64) 96 03/30/20 13:00 83 24 120/47 (71) 97 03/30/20 12:45 84 24 116/47 (70) 95 03/30/20 12:30 85 24 75/29 (44) 95 03/30/20 12:22 103/52 03/30/20 12:00 75 03/30/20 12:00 Mechanical Ventilator Mechanical Ventilator 03/30/20 12:00 98.5 84 24 103/52 (69) 96 03/30/20 12:00 83 03/30/20 11:30 93/46 03/30/20 11:30 85 24 93/46 (62) 90 03/30/20 11:05 83 24 60 03/30/20 11:00 84 24 87/36 (53) 92 03/30/20 10:30 82 24 92/30 (50) 93 03/30/20 10:00 82 24 90/40 (57) 94 03/30/20 09:30 83 24 90/40 (57) 91 03/30/20 09:07 98/26 03/30/20 09:00 85 24 76/61 (66) 97 03/30/20 08:30 86 24 91/39 (56) 92 03/30/20 08:00 Mechanical Ventilator Mechanical Ventilator 03/30/20 08:00 60 03/30/20 08:00 98.6 83 24 91/35 (53) 93 03/30/20 08:00 83 03/30/20 07:30 81 24 85/41 (56) 94 03/30/20 07:05 83 24 60 03/30/20 07:00 88/39 03/30/20 07:00 80 25 88/39 (55) 94 03/30/20 06:48 79 24 92/43 (59) 95 03/30/20 06:45 80 24 89/35 (53) 95 03/30/20 06:30 80 25 99/52 (68) 96 03/30/20 06:15 80 24 103/48 (66) 96 03/30/20 06:00 99/45 03/30/20 06:00 80 24 99/45 (63) 95 03/30/20 05:45 82 24 97/47 (64) 95 03/30/20 05:30 81 24 101/41 (61) 95 03/30/20 05:15 83 24 101/45 (63) 93 03/30/20 05:07 97/43 03/30/20 05:00 83 24 97/43 (61) 93 03/30/20 04:45 84 24 84/37 (53) 91 03/30/20 04:30 82 24 85/42 (56) 92 03/30/20 04:30 84/37 03/30/20 04:26 82 24 92/41 (58) 92 03/30/20 04:15 80 24 86/39 (55) 92 03/30/20 04:00 Mechanical Ventilator Mechanical Ventilator 03/30/20 04:00 86/39 03/30/20 04:00 98.4 80 24 89/36 (53) 93 03/30/20 04:00 60 03/30/20 03:49 78 24 93/39 (57) 93 03/30/20 03:45 78 24 87/39 (55) 94 03/30/20 03:34 76 03/30/20 03:30 79 24 88/41 (57) 92 03/30/20 03:29 79 24 60 03/30/20 03:15 79 24 100/42 (61) 94 03/30/20 03:00 100/42 03/30/20 03:00 78 24 100/24 (49) 94 03/30/20 02:45 81 27 97/32 (53) 90 03/30/20 02:30 79 24 112/45 (67) 98 03/30/20 02:15 79 24 103/53 (70) 98 03/30/20 02:00 103/53 03/30/20 02:00 80 24 106/44 (64) 98 03/30/20 01:45 80 24 103/39 (60) 98 03/30/20 01:30 81 24 102/36 (58) 96 03/30/20 01:25 107/51 5/14/20 01:15 81 24 107/51 (69) 97 03/30/20 01:00 81 24 104/40 (61) 97 03/30/20 01:00 107/51 03/30/20 00:45 82 24 101/46 (64) 96 03/30/20 00:30 81 24 98/42 (60) 95 03/30/20 00:15 78 24 96/46 (63) 96 03/30/20 00:00 Mechanical Ventilator Mechanical Ventilator 03/30/20 00:00 96/46 03/30/20 00:00 97.6 79 24 102/42 (62) 96 03/29/20 23:45 78 24 111/46 (67) 97 03/29/20 23:30 78 24 112/39 (63) 98 03/29/20 23:23 78 03/29/20 23:15 76 24 116/38 (64) 98 03/29/20 23:06 78 24 60 03/29/20 23:00 76 24 116/46 (69) 98 03/29/20 23:00 116/38 03/29/20 22:45 77 24 113/57 (75) 98 03/29/20 22:30 73 24 110/50 (70) 98 03/29/20 22:15 84 24 120/50 (73) 98 03/29/20 22:00 120/50 03/29/20 22:00 84 24 117/40 (65) 98 03/29/20 21:45 85 24 113/34 (60) 97 03/29/20 21:30 85 24 116/47 (70) 96 03/29/20 21:29 113/45 03/29/20 21:15 84 24 113/45 (67) 96 03/29/20 21:00 84 24 112/50 (70) 96 03/29/20 21:00 113/45 03/29/20 20:45 83 24 110/53 (72) 96 Micro: Microbiology Date/Time Source Procedure Growth Status 03/29/20 12:30 Sputum Gram Stain - Final Resulted 03/29/20 12:30 Sputum Sputum Culture Pending Resulted 03/27/20 21:30 Nasopharynx Coronavirus COVID-19 PCR ([facility]ANIELLA) - Final Complete 03/29/20 12:30 Stool Clostridium difficile Toxin Assay - Final Complete 03/29/20 12:30 Indwelling Cath Urine Culture - Preliminary Resulted Accucheck: 201 Critical Care - Subjective ROS Limited/Unobtainable: No Condition: critical IV Access: PICC EKG Rhythm: Sinus Rhythm FI02: 75 Vent Support Breath Rate: 24 Vent Support Mode: AC Vent Tidal Volume: 400 Sputum Amount: Small PEEP: 10.0 PIP: 30 Tube Feeding Amount: 50 I&O: Intake and Output 03/29/20 03/30/20 19:00 07:00 Intake Total 2764.563 ml 3112.0523 ml Output Total 905 ml 1200 ml Balance 1859.563 ml 1912.0523 ml Free Water 200 ml 450 ml IV Total 1964.563 ml 2062.0523 ml Tube Feeding 500 ml 600 ml Other 100 ml Output Urine Total 905 ml 1200 ml # Bowel Movements 1 ET-Tube: 7.5 ET Position: 21 Doron Carrillo MD March 30, 2020 20:44
[2020-03-30] MEDS: Dyna-Hex 2% Top Sol 2oz TOPIC SCH (21:18)
--- NOTE | 2020-03-30 21:20 | General Progress Note ---
Assessment/Plan Problem List: (1) Cellulitis ICD Codes: L03.90 - Cellulitis, unspecified SNOMED: [id number] Qualifiers: Qualified Codes: L03.119 - Cellulitis of unspecified part of limb Status: progressing, unchanged, deteriorating Assessment/Plan: hypernatrmia arf resp failure renal failure covid positvie sepsis metabolic conctraction cellulitis lower extremity persistent leukocytosis elev LFT shock liver sepsis anemia. h/h is stable cirrhosis poor prognosis Subjective ROS Limited/Unobtainable: Yes Allergies: Coded Allergies: No Known Allergies (Unverified , 02/29/20) Objective Last 24 Hour Vital Signs Date Time Temp Pulse Resp B/P (MAP) Pulse Ox O2 Delivery O2 Flow Rate FiO2 03/30/20 21:00 86 24 119/58 (78) 97 03/30/20 20:45 85 24 110/55 (73) 96 03/30/20 20:30 87 24 108/55 (72) 95 03/30/20 20:15 87 24 100/42 (61) 90 03/30/20 20:00 Mechanical Ventilator Mechanical Ventilator 03/30/20 20:00 98.3 81 24 109/81 (90) 95 03/30/20 20:00 75 03/30/20 19:30 81 24 115/56 (75) 94 03/30/20 19:22 80 24 95 Mechanical Ventilator 75 03/30/20 19:22 80 24 75 03/30/20 19:00 80 24 109/58 (75) 95 03/30/20 18:30 80 24 114/57 (76) 95 03/30/20 18:14 125/60 03/30/20 18:00 80 24 125/60 (81) 96 03/30/20 17:30 80 24 127/54 (78) 96 03/30/20 17:00 80 24 130/51 (77) 96 03/30/20 16:30 81 24 124/71 (88) 96 03/30/20 16:00 82 03/30/20 16:00 75 03/30/20 16:00 Mechanical Ventilator Mechanical Ventilator 03/30/20 16:00 81 24 128/61 (83) 95 03/30/20 15:25 110/62 03/30/20 15:05 102 24 60 03/30/20 15:00 80 24 113/54 (73) 93 03/30/20 14:30 83 24 120/51 (74) 94 03/30/20 14:00 83 24 123/56 (78) 95 03/30/20 13:30 82 24 109/42 (64) 96 03/30/20 13:00 83 24 120/47 (71) 97 03/30/20 12:45 84 24 116/47 (70) 95 03/30/20 12:30 85 24 75/29 (44) 95 03/30/20 12:22 103/52 03/30/20 12:00 75 03/30/20 12:00 Mechanical Ventilator Mechanical Ventilator 03/30/20 12:00 98.5 84 24 103/52 (69) 96 03/30/20 12:00 83 03/30/20 11:30 93/46 03/30/20 11:30 85 24 93/46 (62) 90 03/30/20 11:05 83 24 60 03/30/20 11:00 84 24 87/36 (53) 92 03/30/20 10:30 82 24 92/30 (50) 93 03/30/20 10:00 82 24 90/40 (57) 94 03/30/20 09:30 83 24 90/40 (57) 91 03/30/20 09:07 98/26 03/30/20 09:00 85 24 76/61 (66) 97 03/30/20 08:30 86 24 91/39 (56) 92 03/30/20 08:00 Mechanical Ventilator Mechanical Ventilator 03/30/20 08:00 60 03/30/20 08:00 98.6 83 24 91/35 (53) 93 03/30/20 08:00 83 03/30/20 07:30 81 24 85/41 (56) 94 03/30/20 07:05 83 24 60 03/30/20 07:00 88/39 03/30/20 07:00 80 25 88/39 (55) 94 03/30/20 06:48 79 24 92/43 (59) 95 03/30/20 06:45 80 24 89/35 (53) 95 03/30/20 06:30 80 25 99/52 (68) 96 03/30/20 06:15 80 24 103/48 (66) 96 03/30/20 06:00 99/45 5/14/20 06:00 80 24 99/45 (63) 95 03/30/20 05:45 82 24 97/47 (64) 95 03/30/20 05:30 81 24 101/41 (61) 95 03/30/20 05:15 83 24 101/45 (63) 93 03/30/20 05:07 97/43 03/30/20 05:00 83 24 97/43 (61) 93 03/30/20 04:45 84 24 84/37 (53) 91 03/30/20 04:30 82 24 85/42 (56) 92 03/30/20 04:30 84/37 03/30/20 04:26 82 24 92/41 (58) 92 03/30/20 04:15 80 24 86/39 (55) 92 03/30/20 04:00 Mechanical Ventilator Mechanical Ventilator 03/30/20 04:00 86/39 03/30/20 04:00 98.4 80 24 89/36 (53) 93 03/30/20 04:00 60 03/30/20 03:49 78 24 93/39 (57) 93 03/30/20 03:45 78 24 87/39 (55) 94 03/30/20 03:34 76 03/30/20 03:30 79 24 88/41 (57) 92 03/30/20 03:29 79 24 60 03/30/20 03:15 79 24 100/42 (61) 94 03/30/20 03:00 100/42 03/30/20 03:00 78 24 100/24 (49) 94 03/30/20 02:45 81 27 97/32 (53) 90 03/30/20 02:30 79 24 112/45 (67) 98 03/30/20 02:15 79 24 103/53 (70) 98 03/30/20 02:00 103/53 03/30/20 02:00 80 24 106/44 (64) 98 03/30/20 01:45 80 24 103/39 (60) 98 03/30/20 01:30 81 24 102/36 (58) 96 03/30/20 01:25 107/51 03/30/20 01:15 81 24 107/51 (69) 97 03/30/20 01:00 81 24 104/40 (61) 97 5/14/20 01:00 107/51 03/30/20 00:45 82 24 101/46 (64) 96 03/30/20 00:30 81 24 98/42 (60) 95 03/30/20 00:15 78 24 96/46 (63) 96 03/30/20 00:00 Mechanical Ventilator Mechanical Ventilator 03/30/20 00:00 96/46 03/30/20 00:00 97.6 79 24 102/42 (62) 96 03/29/20 23:45 78 24 111/46 (67) 97 03/29/20 23:30 78 24 112/39 (63) 98 03/29/20 23:23 78 03/29/20 23:15 76 24 116/38 (64) 98 03/29/20 23:06 78 24 60 03/29/20 23:00 76 24 116/46 (69) 98 03/29/20 23:00 116/38 03/29/20 22:45 77 24 113/57 (75) 98 03/29/20 22:30 73 24 110/50 (70) 98 03/29/20 22:15 84 24 120/50 (73) 98 03/29/20 22:00 120/50 03/29/20 22:00 84 24 117/40 (65) 98 03/29/20 21:45 85 24 113/34 (60) 97 03/29/20 21:30 85 24 116/47 (70) 96 03/29/20 21:29 113/45 Intake and Output 03/29/20 03/30/20 19:00 07:00 Intake Total 2764.563 ml 3112.0523 ml Output Total 905 ml 1200 ml Balance 1859.563 ml 1912.0523 ml Free Water 200 ml 450 ml IV Total 1964.563 ml 2062.0523 ml Tube Feeding 500 ml 600 ml Other 100 ml Output Urine Total 905 ml 1200 ml # Bowel Movements 1 Laboratory Tests 03/30/20 09:10: White Blood Count 26.8*H, Red Blood Count 2.62L, Hemoglobin 9.3L, Hematocrit 28.2L, Mean Corpuscular Volume 107H, Mean Corpuscular Hemoglobin 35.4H, Mean Corpuscular Hemoglobin Concent 33.0, Red Cell Distribution Width 21.6H, Platelet Count 68L, Mean Platelet Volume 8.6, Neutrophils (%) (Auto) , Lymphocytes (%) (Auto) , Monocytes (%) (Auto) , Eosinophils (%) (Auto) , Basophils (%) (Auto) , Differential Total Cells Counted 100, Neutrophils % ( Manual) 81H, Lymphocytes % (Manual) 10L, Monocytes % (Manual) 5, Eosinophils % ( Manual) 2, Basophils % (Manual) 0, Band Neutrophils 2, Nucleated Red Blood Cells 3, Platelet Estimate DecreasedL, Platelet Morphology Normal, Hypochromasia 2+, Anisocytosis 3+, Macrocytosis 1+, Spherocytes 1+, Sodium Level 142, Potassium Level 5.0, Chloride Level 103, Carbon Dioxide Level 40H, Anion Gap -1L, Blood Urea Nitrogen 53H, Creatinine 0.9, Estimat Glomerular Filtration Rate > 60, Glucose Level 171#H, Calcium Level 9.3, Phosphorus Level 4.2, Magnesium Level 2.6H, Total Bilirubin 1.7H, Direct Bilirubin 0.9H, Aspartate Amino Transf (AST/SGOT) 535H, Alanine Aminotransferase (ALT/SGPT) 281H , Alkaline Phosphatase 343H, Total Protein 5.9L, Albumin 1.9L, Globulin 4.0, Albumin/Globulin Ratio 0.5L Height (Feet): 5 Height (Inches): 1.00 Weight (Pounds): 225 Celso Moreno MD March 30, 2020 21:20
[2020-03-30] MEDS: fentaNYL Citrate 1000 MCG in NS 100ml IV SCH (22:30)
[2020-03-31] VITALS (62 sets, daily range): BP systolic 80–143; BP diastolic 38–82
[2020-03-31] MEDS: NovoLOG Insulin Flexpen SUBQ SCH ×12 (01:08→22:07)
[2020-03-31] MEDS: DOPamine 400mg/250ml 250 ML IV SCH ×7 (01:10→22:27)
[2020-03-31] MEDS: Meropenem 1 GM in NS 55 ML IVPB SCH ×3 (05:13→22:08)
--- NOTE | 2020-03-31 08:04 | General Progress Note ---
Assessment/Plan Problem List: (1) Hypothyroid ICD Codes: E03.9 - Hypothyroidism, unspecified SNOMED: 06759042 (2) COVID-19 ICD Codes: U07.1 - COVID-19 SNOMED: 811698382 (3) Respiratory failure with hypoxia ICD Codes: J96.91 - Respiratory failure, unspecified with hypoxia SNOMED: [id number] Qualifiers: Qualified Codes: J96.01 - Acute respiratory failure with hypoxia (4) Cellulitis ICD Codes: L03.90 - Cellulitis, unspecified SNOMED: 430796079 Qualifiers: Qualified Codes: L03.119 - Cellulitis of unspecified part of limb (5) Hyperglycemia ICD Codes: R73.9 - Hyperglycemia, unspecified SNOMED: [id number] Status: progressing, unchanged, deteriorating Assessment/Plan: continue Levemir 50 units bid continue Novolog 30 units every 4 hours in addition to sliding scale continue Novolog sliding scale every 4 hours high dose continue Levothyroxine 50 mcg IV daily Subjective ROS Limited/Unobtainable: Yes Allergies: Coded Allergies: No Known Allergies (Unverified , 02/29/20) Subjective events noted - interval notes reviewed intubated in ICU glucose values are controlled without hypoglycemia Item Value Date Time Bedside Blood Glucose 176 mg/dl H 03/31/20 0500 Bedside Blood Glucose 159 mg/dl H 03/31/20 0109 Bedside Blood Glucose 159 mg/dl H 03/30/20 2120 Bedside Blood Glucose 201 mg/dl H 03/30/20 1816 Bedside Blood Glucose 155 mg/dl H 03/30/20 1345 Bedside Blood Glucose 143 mg/dl H 03/30/20 0959 Bedside Blood Glucose 214 mg/dl H 03/30/20 0506 Objective Last 24 Hour Vital Signs Date Time Temp Pulse Resp B/P (MAP) Pulse Ox O2 Delivery O2 Flow Rate FiO2 03/31/20 07:00 101/47 03/31/20 07:00 80 24 101/47 (65) 95 03/31/20 06:45 81 24 104/48 (66) 95 03/31/20 06:30 81 24 103/52 (69) 95 03/31/20 06:15 81 24 100/46 (64) 93 03/31/20 06:00 100/46 03/31/20 06:00 82 23 94/45 (61) 93 03/31/20 05:45 82 24 95/47 (63) 93 03/31/20 05:30 81 24 88/40 (56) 93 03/31/20 05:15 81 24 96/45 (62) 95 03/31/20 05:00 81 24 97/42 (60) 95 03/31/20 04:45 81 24 80/45 (57) 94 03/31/20 04:37 106/51 03/31/20 04:37 106/51 03/31/20 04:30 82 24 109/46 (67) 96 03/31/20 04:15 82 24 106/51 (69) 96 03/31/20 04:00 100 03/31/20 04:00 106/51 03/31/20 04:00 Mechanical Ventilator Mechanical Ventilator 03/31/20 04:00 98.2 82 25 105/50 (68) 95 03/31/20 03:45 82 25 100/45 (63) 95 03/31/20 03:30 82 03/31/20 03:30 82 24 97/43 (61) 94 03/31/20 03:19 82 24 100 03/31/20 03:15 82 24 94/45 (61) 94 03/31/20 03:00 94/45 03/31/20 03:00 81 24 100/48 (65) 94 03/31/20 02:45 81 24 102/48 (66) 94 03/31/20 02:30 82 24 106/51 (69) 95 03/31/20 02:15 82 24 112/60 (77) 95 03/31/20 02:00 112/60 03/31/20 02:00 81 24 101/48 (65) 92 03/31/20 01:45 83 24 95/65 (75) 95 03/31/20 01:30 81 24 112/54 (73) 99 03/31/20 01:15 81 24 110/55 (73) 98 03/31/20 01:10 111/58 03/31/20 01:00 112/60 03/31/20 01:00 81 24 111/58 (75) 98 03/31/20 00:45 81 24 108/55 (72) 98 03/31/20 00:30 78 24 104/50 (68) 98 03/31/20 00:15 82 24 113/53 (73) 98 03/31/20 00:00 100 03/31/20 00:00 113/53 03/31/20 00:00 Mechanical Ventilator Mechanical Ventilator 03/31/20 00:00 98.2 83 24 118/56 (76) 98 03/30/20 23:45 83 24 115/59 (77) 98 03/30/20 23:30 84 24 119/52 (74) 99 03/30/20 23:28 84 03/30/20 23:15 83 24 116/50 (72) 99 03/30/20 23:12 84 24 100 03/30/20 23:00 116/50 03/30/20 23:00 83 24 112/56 (74) 98 03/30/20 22:45 84 24 115/51 (72) 98 03/30/20 22:30 84 24 120/49 (72) 99 03/30/20 22:15 84 24 126/62 (83) 99 03/30/20 22:00 126/62 03/30/20 22:00 83 23 122/53 (76) 97 03/30/20 21:53 113/55 03/30/20 21:45 83 24 113/55 (74) 98 03/30/20 21:30 84 24 111/51 (71) 98 03/30/20 21:15 85 24 109/58 (75) 98 03/30/20 21:00 86 24 119/58 (78) 97 03/30/20 21:00 109/58 03/30/20 20:45 85 24 110/55 (73) 96 03/30/20 20:30 87 24 108/55 (72) 95 03/30/20 20:15 87 24 100/42 (61) 90 03/30/20 20:00 Mechanical Ventilator Mechanical Ventilator 03/30/20 20:00 98.3 81 24 109/81 (90) 95 03/30/20 20:00 100/58 03/30/20 20:00 75 03/30/20 19:31 81 03/30/20 19:30 81 24 115/56 (75) 94 03/30/20 19:22 80 24 95 Mechanical Ventilator 75 03/30/20 19:22 80 24 75 03/30/20 19:00 80 24 109/58 (75) 95 03/30/20 18:30 80 24 114/57 (76) 95 03/30/20 18:14 125/60 03/30/20 18:00 80 24 125/60 (81) 96 03/30/20 17:30 80 24 127/54 (78) 96 03/30/20 17:00 80 24 130/51 (77) 96 03/30/20 16:30 81 24 124/71 (88) 96 03/30/20 16:00 82 03/30/20 16:00 75 03/30/20 16:00 Mechanical Ventilator Mechanical Ventilator 03/30/20 16:00 81 24 128/61 (83) 95 03/30/20 15:25 110/62 03/30/20 15:05 102 24 60 03/30/20 15:00 80 24 113/54 (73) 93 03/30/20 14:30 83 24 120/51 (74) 94 03/30/20 14:00 83 24 123/56 (78) 95 03/30/20 13:30 82 24 109/42 (64) 96 03/30/20 13:00 83 24 120/47 (71) 97 03/30/20 12:45 84 24 116/47 (70) 95 03/30/20 12:30 85 24 75/29 (44) 95 03/30/20 12:22 103/52 03/30/20 12:00 75 03/30/20 12:00 Mechanical Ventilator Mechanical Ventilator 03/30/20 12:00 98.5 84 24 103/52 (69) 96 03/30/20 12:00 83 03/30/20 11:30 93/46 03/30/20 11:30 85 24 93/46 (62) 90 03/30/20 11:05 83 24 60 03/30/20 11:00 84 24 87/36 (53) 92 03/30/20 10:30 82 24 92/30 (50) 93 03/30/20 10:00 82 24 90/40 (57) 94 03/30/20 09:30 83 24 90/40 (57) 91 03/30/20 09:07 98/26 03/30/20 09:00 85 24 76/61 (66) 97 03/30/20 08:30 86 24 91/39 (56) 92 Intake and Output 03/30/20 03/31/20 19:00 07:00 Intake Total 2701.23931 ml 2366.1520 ml Output Total 530 ml 735 ml Balance 2171.76068 ml 1631.1520 ml Free Water 300 ml 300 ml IV Total 1801.05849 ml 1466.1520 ml Tube Feeding 600 ml 600 ml Output Urine Total 530 ml 735 ml # Bowel Movements 2 Laboratory Tests 03/30/20 09:10: White Blood Count 26.8*H, Red Blood Count 2.62L, Hemoglobin 9.3L, Hematocrit 28.2L, Mean Corpuscular Volume 107H, Mean Corpuscular Hemoglobin 35.4H, Mean Corpuscular Hemoglobin Concent 33.0, Red Cell Distribution Width 21.6H, Platelet Count 68L, Mean Platelet Volume 8.6, Neutrophils (%) (Auto) , Lymphocytes (%) (Auto) , Monocytes (%) (Auto) , Eosinophils (%) (Auto) , Basophils (%) (Auto) , Differential Total Cells Counted 100, Neutrophils % ( Manual) 81H, Lymphocytes % (Manual) 10L, Monocytes % (Manual) 5, Eosinophils % ( Manual) 2, Basophils % (Manual) 0, Band Neutrophils 2, Nucleated Red Blood Cells 3, Platelet Estimate DecreasedL, Platelet Morphology Normal, Hypochromasia 2+, Anisocytosis 3+, Macrocytosis 1+, Spherocytes 1+, Sodium Level 142, Potassium Level 5.0, Chloride Level 103, Carbon Dioxide Level 40H, Anion Gap -1L, Blood Urea Nitrogen 53H, Creatinine 0.9, Estimat Glomerular Filtration Rate > 60, Glucose Level 171#H, Calcium Level 9.3, Phosphorus Level 4.2, Magnesium Level 2.6H, Total Bilirubin 1.7H, Direct Bilirubin 0.9H, Aspartate Amino Transf (AST/SGOT) 535H, Alanine Aminotransferase (ALT/SGPT) 281H , Alkaline Phosphatase 343H, Total Protein 5.9L, Albumin 1.9L, Globulin 4.0, Albumin/Globulin Ratio 0.5L Height (Feet): 5 Height (Inches): 1.00 Weight (Pounds): 223 General Appearance: severe distress, other - intubated EENT: other - ETT Neck: normal alignment Cardiovascular: tachycardia Respiratory/Chest: decreased breath sounds Abdomen: normal bowel sounds Edema: 1+ Arm (L), 1+ Arm (R), 1+ Leg (L), 1+ Leg (R), 1+ Pedal (L), 1+ Pedal ( R), 1+ Generalized Objective Current Medications Medications (Trade) Dose Ordered Sig/Dolores Route PRN Reason Start Time Stop Time Status Last Admin Dose Admin Acetaminophen (Tylenol) 650 mg Q4H PRN ORAL Mild Pain (Pain Scale 1-3) 03/13/20 14:53 04/12/20 14:52 03/25/20 12:35 Acetaminophen (Tylenol) 650 mg Q4H PRN ORAL Temp >100 03/13/20 14:53 04/12/20 14:52 03/25/20 17:16 Chlorhexidine Gluconate (Lucretia-Hex 2%) 1 applic DAILY@2000 TOPIC 03/13/20 20:00 06/11/20 19:59 03/30/20 21:18 Dextrose 1,000 ml @ 50 mls/hr Q20H IV 03/30/20 14:00 04/29/20 13:59 03/30/20 13:43 Dextrose (Dextrose 50%) 25 ml Q30M PRN IV Hypoglycemia 03/28/20 06:45 06/26/20 06:44 Dextrose (Dextrose 50%) 50 ml Q30M PRN IV Hypoglycemia 03/28/20 06:45 06/26/20 06:44 Dopamine HCl/ Dextrose 250 ml @ 0 mls/hr Q24H IV 03/16/20 19:30 06/14/20 19:29 03/31/20 04:37 Fentanyl Citrate 1000 mcg/Sodium Chloride 100 ml @ 0 mls/hr Q24H IV 03/27/20 22:30 04/03/20 22:29 03/27/20 22:56 Hydralazine HCl (Apresoline) 10 mg Q6H PRN IV For High Blood Pressure 03/24/20 16:45 06/22/20 16:44 Insulin Aspart (NovoLOG) EVERY 4 HOURS SUBQ 03/26/20 09:00 06/24/20 08:59 03/31/20 04:36 Insulin Aspart (NovoLOG) 30 units EVERY 4 HOURS SUBQ 03/30/20 09:00 06/26/20 08:59 03/31/20 04:37 Insulin Detemir (Levemir) 50 units Q12HR SUBQ 03/29/20 09:00 06/20/20 18:59 03/30/20 21:19 Levothyroxine Sodium (Synthroid) 50 mcg DAILY IV 03/21/20 09:00 04/17/20 11:59 03/30/20 09:06 Lorazepam (Ativan 2mg/ml 1ml) 1 mg Q2H PRN IV For Anxiety 03/25/20 16:30 04/01/20 16:29 03/25/20 23:39 Meropenem 1 gm/ Sodium Chloride 55 ml @ 110 mls/hr Q8HR IVPB 03/29/20 14:00 04/03/20 13:59 03/31/20 05:13 Methylprednisolone Sodium Succinate (Solu-MEDROL) 10 mg DAILY IVP 03/30/20 09:00 04/02/20 08:59 03/30/20 09:06 Midodrine (Pro-Amatine) 10 mg THREE TIMES A DAY NG 03/27/20 09:00 06/20/20 12:29 03/30/20 18:17 Non-Formulary Medication (Non-Formulary Med) 1 ea DAILY IV 03/18/20 09:00 04/17/20 08:59 UNV Norepinephrine Bitartrate 4 mg/ Dextrose 250 ml @ 0 mls/hr Q24H PRN IV For hypotension 03/25/20 16:30 04/24/20 16:29 Vasopressin 100 units/Sodium Chloride 100 ml @ 0 mls/hr Q24H PRN IV For hypotension 03/16/20 11:00 04/15/20 10:59 03/19/20 18:03 Johan Christopher MD March 31, 2020 08:04
[2020-03-31] MEDS: Solu-MEDROL 40mg Inj IVP SCH (08:06)
[2020-03-31] MEDS: Midodrine 10mg tab NG SCH ×3 (08:06→18:25)
[2020-03-31 08:10] LABS: HEMOGLOBIN 9.1 G/DL (12.0-16.0); MEAN CORPUSCULAR VOLUME 106 FL (80-99); PLATELET COUNT 115 K/UL (150-450); RED BLOOD COUNT 2.54 M/UL (4.20-5.40); RED CELL DISTRIBUTION WIDTH 22.8 % (11.6-14.8)
[2020-03-31 08:23] LABS: WHITE BLOOD COUNT 26.7 K/UL (4.8-10.8)
[2020-03-31 09:02] LABS: AMMONIA 106 umol/L (11-32)
[2020-03-31 09:05] LABS: CREATINE KINASE 81 U/L (26-308); PHOSPHORUS 4.5 MG/DL (2.5-4.9)
[2020-03-31 09:10] LABS: ALANINE AMINOTRANSFERASE 310 U/L (12-78); ALBUMIN 2.1 G/DL (3.4-5.0); ALBUMIN/GLOBULIN RATIO 0.6 (1.0-2.7); ALKALINE PHOSPHATASE 391 U/L (46-116); ANION GAP 1 mmol/L (5-15); ASPARTATE AMINO TRANSFERASE 654 U/L (15-37); BILIRUBIN,TOTAL 1.7 MG/DL (0.2-1.0); BLOOD UREA NITROGEN 59 mg/dL (7-18); CALCIUM 9.1 MG/DL (8.5-10.1); CARBON DIOXIDE 37 MMOL/L (21-32); CHLORIDE 98 MMOL/L (98-107); CREATININE 0.8 MG/DL (0.55-1.30); POTASSIUM 5.3 MMOL/L (3.5-5.1); SODIUM 136 MMOL/L (136-145)
[2020-03-31 09:23] LABS: BILIRUBIN,DIRECT 1.2 MG/DL (0.0-0.3)
[2020-03-31] MEDS: Levemir Flexpen SUBQ SCH ×2 (09:25→22:08)
--- NOTE | 2020-03-31 09:57 | Infectious Diseases Prog Note ---
Assessment/Plan Assessment/Plan IMPRESSION: 1. Bilateral leg cellulitis,Pseudomonas in culture 2. Anemia. 3. Hypoxemic respiratory failure 4. Thrombocytopenia. 5. Homeless 6. Morbid obesity. 7. Cirrhosis 8. COVID19 pneumonia Positive03/07-03/12, 03/24, 03/27 9. Hepatitis C 10.septic shock 11. Pneumonia with Pseudomonas 12. DM & hyperglycemia 13. Diarrhea, C. difficile negative 14. Leukocytosis RECOMMENDATION: Will f/u COVID19 test Finished Plaquenil ,Actemra & Ivermectin continue Meropenem Add Fluconazole Taper steroids Blood culture is negative so far Repeat COVID19 test Case was D/W RN Subjective ROS Limited/Unobtainable: Yes Constitutional: Denies: fever Cardiovascular: Reports: other - on Dopamine Allergies: Coded Allergies: No Known Allergies (Unverified , 02/29/20) Objective Vital Signs Last 24 Hour Vital Signs Date Time Temp Pulse Resp B/P (MAP) Pulse Ox O2 Delivery O2 Flow Rate FiO2 03/31/20 08:07 90/42 03/31/20 08:00 79 03/31/20 08:00 100 03/31/20 08:00 Mechanical Ventilator Mechanical Ventilator 03/31/20 07:30 80 24 100 03/31/20 07:00 101/47 03/31/20 07:00 80 24 101/47 (65) 95 03/31/20 06:45 81 24 104/48 (66) 95 03/31/20 06:30 81 24 103/52 (69) 95 03/31/20 06:15 81 24 100/46 (64) 93 03/31/20 06:00 100/46 03/31/20 06:00 82 23 94/45 (61) 93 03/31/20 05:45 82 24 95/47 (63) 93 03/31/20 05:30 81 24 88/40 (56) 93 03/31/20 05:15 81 24 96/45 (62) 95 03/31/20 05:00 81 24 97/42 (60) 95 03/31/20 04:45 81 24 80/45 (57) 94 03/31/20 04:37 106/51 03/31/20 04:37 106/51 03/31/20 04:30 82 24 109/46 (67) 96 03/31/20 04:15 82 24 106/51 (69) 96 03/31/20 04:00 100 03/31/20 04:00 106/51 03/31/20 04:00 Mechanical Ventilator Mechanical Ventilator 03/31/20 04:00 98.2 82 25 105/50 (68) 95 03/31/20 03:45 82 25 100/45 (63) 95 03/31/20 03:30 82 03/31/20 03:30 82 24 97/43 (61) 94 03/31/20 03:19 82 24 100 03/31/20 03:15 82 24 94/45 (61) 94 03/31/20 03:00 94/45 03/31/20 03:00 81 24 100/48 (65) 94 03/31/20 02:45 81 24 102/48 (66) 94 03/31/20 02:30 82 24 106/51 (69) 95 03/31/20 02:15 82 24 112/60 (77) 95 03/31/20 02:00 112/60 03/31/20 02:00 81 24 101/48 (65) 92 03/31/20 01:45 83 24 95/65 (75) 95 03/31/20 01:30 81 24 112/54 (73) 99 03/31/20 01:15 81 24 110/55 (73) 98 03/31/20 01:10 111/58 03/31/20 01:00 112/60 03/31/20 01:00 81 24 111/58 (75) 98 03/31/20 00:45 81 24 108/55 (72) 98 03/31/20 00:30 78 24 104/50 (68) 98 03/31/20 00:15 82 24 113/53 (73) 98 03/31/20 00:00 100 03/31/20 00:00 113/53 03/31/20 00:00 Mechanical Ventilator Mechanical Ventilator 03/31/20 00:00 98.2 83 24 118/56 (76) 98 03/30/20 23:45 83 24 115/59 (77) 98 03/30/20 23:30 84 24 119/52 (74) 99 03/30/20 23:28 84 03/30/20 23:15 83 24 116/50 (72) 99 03/30/20 23:12 84 24 100 5/14/20 23:00 116/50 03/30/20 23:00 83 24 112/56 (74) 98 03/30/20 22:45 84 24 115/51 (72) 98 03/30/20 22:30 84 24 120/49 (72) 99 03/30/20 22:15 84 24 126/62 (83) 99 03/30/20 22:00 126/62 03/30/20 22:00 83 23 122/53 (76) 97 03/30/20 21:53 113/55 03/30/20 21:45 83 24 113/55 (74) 98 03/30/20 21:30 84 24 111/51 (71) 98 03/30/20 21:15 85 24 109/58 (75) 98 03/30/20 21:00 86 24 119/58 (78) 97 03/30/20 21:00 109/58 03/30/20 20:45 85 24 110/55 (73) 96 03/30/20 20:30 87 24 108/55 (72) 95 03/30/20 20:15 87 24 100/42 (61) 90 03/30/20 20:00 Mechanical Ventilator Mechanical Ventilator 03/30/20 20:00 98.3 81 24 109/81 (90) 95 03/30/20 20:00 100/58 03/30/20 20:00 75 03/30/20 19:31 81 03/30/20 19:30 81 24 115/56 (75) 94 03/30/20 19:22 80 24 95 Mechanical Ventilator 75 03/30/20 19:22 80 24 75 03/30/20 19:00 80 24 109/58 (75) 95 03/30/20 18:30 80 24 114/57 (76) 95 03/30/20 18:14 125/60 03/30/20 18:00 80 24 125/60 (81) 96 03/30/20 17:30 80 24 127/54 (78) 96 03/30/20 17:00 80 24 130/51 (77) 96 03/30/20 16:30 81 24 124/71 (88) 96 03/30/20 16:00 82 03/30/20 16:00 75 03/30/20 16:00 Mechanical Ventilator Mechanical Ventilator 03/30/20 16:00 81 24 128/61 (83) 95 03/30/20 15:25 110/62 03/30/20 15:05 102 24 60 03/30/20 15:00 80 24 113/54 (73) 93 03/30/20 14:30 83 24 120/51 (74) 94 03/30/20 14:00 83 24 123/56 (78) 95 03/30/20 13:30 82 24 109/42 (64) 96 03/30/20 13:00 83 24 120/47 (71) 97 03/30/20 12:45 84 24 116/47 (70) 95 03/30/20 12:30 85 24 75/29 (44) 95 03/30/20 12:22 103/52 03/30/20 12:00 75 03/30/20 12:00 Mechanical Ventilator Mechanical Ventilator 03/30/20 12:00 98.5 84 24 103/52 (69) 96 03/30/20 12:00 83 03/30/20 11:30 93/46 03/30/20 11:30 85 24 93/46 (62) 90 03/30/20 11:05 83 24 60 03/30/20 11:00 84 24 87/36 (53) 92 03/30/20 10:30 82 24 92/30 (50) 93 03/30/20 10:00 82 24 90/40 (57) 94 Height (Feet): 5 Height (Inches): 1.00 Weight (Pounds): 223 HEENT: other - orally intubated Respiratory/Chest: other - on Ventilator Cardiovascular: normal rate, other - PICC line Abdomen: soft, non tender, other - NG tube Extremities: other - generalized edema Neurologic/Psychiatric: unresponsiveness, other Microbiology Date/Time Source Procedure Growth Status 03/29/20 12:30 Sputum Gram Stain - Final Resulted 03/29/20 12:30 Sputum Culture - Preliminary Gram Negative Bacillus 1 Resulted 03/29/20 12:30 Stool Clostridium difficile Toxin Assay - Final Complete 03/29/20 12:30 Indwelling Cath Urine Culture - Preliminary Yeast Species Resulted Laboratory Tests Test 03/31/20 07:55 White Blood Count 26.7 K/UL (4.8-10.8) *H Red Blood Count 2.54 M/UL (4.20-5.40) L Hemoglobin 9.1 G/DL (12.0-16.0) L Hematocrit 27.0 % (37.0-47.0) L Mean Corpuscular Volume 106 FL (80-99) H Mean Corpuscular Hemoglobin 35.9 PG (27.0-31.0) H Mean Corpuscular Hemoglobin Concent 33.8 G/DL (32.0-36.0) Red Cell Distribution Width 22.8 % (11.6-14.8) H Platelet Count 115 K/UL (150-450) #L Mean Platelet Volume 8.8 FL (6.5-10.1) Neutrophils (%) (Auto) % (45.0-75.0) Lymphocytes (%) (Auto) % (20.0-45.0) Monocytes (%) (Auto) % (1.0-10.0) Eosinophils (%) (Auto) % (0.0-3.0) Basophils (%) (Auto) % (0.0-2.0) Neutrophils % (Manual) Pending Lymphocytes % (Manual) Pending Platelet Estimate Pending Platelet Morphology Pending Sodium Level 136 MMOL/L (136-145) Potassium Level 5.3 MMOL/L (3.5-5.1) H Chloride Level 98 MMOL/L (98-107) Carbon Dioxide Level 37 MMOL/L (21-32) H Anion Gap 1 mmol/L (5-15) L Blood Urea Nitrogen 59 mg/dL (7-18) H Creatinine 0.8 MG/DL (0.55-1.30) Estimat Glomerular Filtration Rate > 60 mL/min (>60) Glucose Level 151 MG/DL (74-106) H Uric Acid 6.5 MG/DL (2.6-7.2) Calcium Level 9.1 MG/DL (8.5-10.1) Phosphorus Level 4.5 MG/DL (2.5-4.9) Magnesium Level 2.6 MG/DL (1.8-2.4) H Total Bilirubin 1.7 MG/DL (0.2-1.0) H Direct Bilirubin 1.2 MG/DL (0.0-0.3) H Aspartate Amino Transf (AST/SGOT) 654 U/L (15-37) H Alanine Aminotransferase (ALT/SGPT) 310 U/L (12-78) H Alkaline Phosphatase 391 U/L (46-116) H Ammonia 106 umol/L (11-32) H Total Creatine Kinase 81 U/L (26-308) C-Reactive Protein, Quantitative 1.7 mg/dL (0.00-0.90) H Total Protein 5.8 G/DL (6.4-8.2) L Albumin 2.1 G/DL (3.4-5.0) L Globulin 3.7 g/dL Albumin/Globulin Ratio 0.6 (1.0-2.7) L Current Medications Medications (Trade) Dose Ordered Sig/Dolores Route PRN Reason Start Time Stop Time Status Last Admin Dose Admin Acetaminophen (Tylenol) 650 mg Q4H PRN ORAL Mild Pain (Pain Scale 1-3) 03/13/20 14:53 04/12/20 14:52 03/25/20 12:35 Acetaminophen (Tylenol) 650 mg Q4H PRN ORAL Temp >100 03/13/20 14:53 04/12/20 14:52 03/25/20 17:16 Chlorhexidine Gluconate (Lucretia-Hex 2%) 1 applic DAILY@2000 TOPIC 03/13/20 20:00 06/11/20 19:59 03/30/20 21:18 Dextrose 1,000 ml @ 50 mls/hr Q20H IV 03/30/20 14:00 04/29/20 13:59 03/31/20 08:08 Dextrose (Dextrose 50%) 25 ml Q30M PRN IV Hypoglycemia 03/28/20 06:45 06/26/20 06:44 Dextrose (Dextrose 50%) 50 ml Q30M PRN IV Hypoglycemia 03/28/20 06:45 06/26/20 06:44 Dopamine HCl/ Dextrose 250 ml @ 0 mls/hr Q24H IV 03/16/20 19:30 06/14/20 19:29 03/31/20 08:07 Fentanyl Citrate 1000 mcg/Sodium Chloride 100 ml @ 0 mls/hr Q24H IV 03/27/20 22:30 04/03/20 22:29 03/27/20 22:56 Hydralazine HCl (Apresoline) 10 mg Q6H PRN IV For High Blood Pressure 03/24/20 16:45 06/22/20 16:44 Insulin Aspart (NovoLOG) EVERY 4 HOURS SUBQ 03/26/20 09:00 06/24/20 08:59 03/31/20 04:36 Insulin Aspart (NovoLOG) 30 units EVERY 4 HOURS SUBQ 03/30/20 09:00 06/26/20 08:59 03/31/20 09:24 Insulin Detemir (Levemir) 50 units Q12HR SUBQ 03/29/20 09:00 06/20/20 18:59 03/31/20 09:25 Levothyroxine Sodium (Synthroid) 50 mcg DAILY IV 03/21/20 09:00 04/17/20 11:59 03/31/20 09:25 Lorazepam (Ativan 2mg/ml 1ml) 1 mg Q2H PRN IV For Anxiety 03/25/20 16:30 04/01/20 16:29 03/25/20 23:39 Meropenem 1 gm/ Sodium Chloride 55 ml @ 110 mls/hr Q8HR IVPB 03/29/20 14:00 04/03/20 13:59 03/31/20 05:13 Methylprednisolone Sodium Succinate (Solu-MEDROL) 10 mg DAILY IVP 03/30/20 09:00 04/02/20 08:59 03/31/20 08:06 Midodrine (Pro-Amatine) 10 mg THREE TIMES A DAY NG 03/27/20 09:00 06/20/20 12:29 03/31/20 08:06 Non-Formulary Medication (Non-Formulary Med) 1 ea DAILY IV 03/18/20 09:00 04/17/20 08:59 UNV Norepinephrine Bitartrate 4 mg/ Dextrose 250 ml @ 0 mls/hr Q24H PRN IV For hypotension 03/25/20 16:30 04/24/20 16:29 Vasopressin 100 units/Sodium Chloride 100 ml @ 0 mls/hr Q24H PRN IV For hypotension 03/16/20 11:00 04/15/20 10:59 03/19/20 18:03 Jonathon Shah MD March 31, 2020 09:57
--- NOTE | 2020-03-31 10:18 | General Progress Note ---
Assessment/Plan Status: progressing, unchanged, deteriorating Assessment/Plan: macrocytic anemia elevated LFTS cirrhosis cellulitis elevated Ammonia levels respiratory distress>>> now failure COVID positive pna NGTF abd us>> reordered>>>>pending Xifaxan fu stool ob>>>neg GI procedures if needed abx per id hepatitis panel>>>>>positive for hep C>>> needs out patient fu poor prognosis still has loose stools>>> off lactulose will fu Subjective ROS Limited/Unobtainable: No Allergies: Coded Allergies: No Known Allergies (Unverified , 02/29/20) Objective Last 24 Hour Vital Signs Date Time Temp Pulse Resp B/P (MAP) Pulse Ox O2 Delivery O2 Flow Rate FiO2 03/31/20 08:07 90/42 03/31/20 08:00 79 03/31/20 08:00 100 03/31/20 08:00 Mechanical Ventilator Mechanical Ventilator 03/31/20 07:30 80 24 100 03/31/20 07:00 101/47 03/31/20 07:00 80 24 101/47 (65) 95 03/31/20 06:45 81 24 104/48 (66) 95 03/31/20 06:30 81 24 103/52 (69) 95 03/31/20 06:15 81 24 100/46 (64) 93 03/31/20 06:00 100/46 03/31/20 06:00 82 23 94/45 (61) 93 03/31/20 05:45 82 24 95/47 (63) 93 03/31/20 05:30 81 24 88/40 (56) 93 03/31/20 05:15 81 24 96/45 (62) 95 03/31/20 05:00 81 24 97/42 (60) 95 03/31/20 04:45 81 24 80/45 (57) 94 03/31/20 04:37 106/51 03/31/20 04:37 106/51 03/31/20 04:30 82 24 109/46 (67) 96 03/31/20 04:15 82 24 106/51 (69) 96 03/31/20 04:00 100 03/31/20 04:00 106/51 03/31/20 04:00 Mechanical Ventilator Mechanical Ventilator 03/31/20 04:00 98.2 82 25 105/50 (68) 95 03/31/20 03:45 82 25 100/45 (63) 95 03/31/20 03:30 82 03/31/20 03:30 82 24 97/43 (61) 94 03/31/20 03:19 82 24 100 03/31/20 03:15 82 24 94/45 (61) 94 03/31/20 03:00 94/45 03/31/20 03:00 81 24 100/48 (65) 94 03/31/20 02:45 81 24 102/48 (66) 94 03/31/20 02:30 82 24 106/51 (69) 95 03/31/20 02:15 82 24 112/60 (77) 95 03/31/20 02:00 112/60 03/31/20 02:00 81 24 101/48 (65) 92 03/31/20 01:45 83 24 95/65 (75) 95 03/31/20 01:30 81 24 112/54 (73) 99 03/31/20 01:15 81 24 110/55 (73) 98 03/31/20 01:10 111/58 03/31/20 01:00 112/60 03/31/20 01:00 81 24 111/58 (75) 98 03/31/20 00:45 81 24 108/55 (72) 98 03/31/20 00:30 78 24 104/50 (68) 98 03/31/20 00:15 82 24 113/53 (73) 98 03/31/20 00:00 100 03/31/20 00:00 113/53 03/31/20 00:00 Mechanical Ventilator Mechanical Ventilator 03/31/20 00:00 98.2 83 24 118/56 (76) 98 03/30/20 23:45 83 24 115/59 (77) 98 03/30/20 23:30 84 24 119/52 (74) 99 03/30/20 23:28 84 03/30/20 23:15 83 24 116/50 (72) 99 03/30/20 23:12 84 24 100 03/30/20 23:00 116/50 03/30/20 23:00 83 24 112/56 (74) 98 03/30/20 22:45 84 24 115/51 (72) 98 03/30/20 22:30 84 24 120/49 (72) 99 03/30/20 22:15 84 24 126/62 (83) 99 03/30/20 22:00 126/62 03/30/20 22:00 83 23 122/53 (76) 97 03/30/20 21:53 113/55 03/30/20 21:45 83 24 113/55 (74) 98 03/30/20 21:30 84 24 111/51 (71) 98 03/30/20 21:15 85 24 109/58 (75) 98 03/30/20 21:00 86 24 119/58 (78) 97 03/30/20 21:00 109/58 03/30/20 20:45 85 24 110/55 (73) 96 03/30/20 20:30 87 24 108/55 (72) 95 03/30/20 20:15 87 24 100/42 (61) 90 03/30/20 20:00 Mechanical Ventilator Mechanical Ventilator 03/30/20 20:00 98.3 81 24 109/81 (90) 95 03/30/20 20:00 100/58 03/30/20 20:00 75 03/30/20 19:31 81 03/30/20 19:30 81 24 115/56 (75) 94 03/30/20 19:22 80 24 95 Mechanical Ventilator 75 03/30/20 19:22 80 24 75 03/30/20 19:00 80 24 109/58 (75) 95 03/30/20 18:30 80 24 114/57 (76) 95 03/30/20 18:14 125/60 03/30/20 18:00 80 24 125/60 (81) 96 03/30/20 17:30 80 24 127/54 (78) 96 03/30/20 17:00 80 24 130/51 (77) 96 03/30/20 16:30 81 24 124/71 (88) 96 03/30/20 16:00 82 03/30/20 16:00 75 03/30/20 16:00 Mechanical Ventilator Mechanical Ventilator 03/30/20 16:00 81 24 128/61 (83) 95 03/30/20 15:25 110/62 03/30/20 15:05 102 24 60 03/30/20 15:00 80 24 113/54 (73) 93 03/30/20 14:30 83 24 120/51 (74) 94 03/30/20 14:00 83 24 123/56 (78) 95 03/30/20 13:30 82 24 109/42 (64) 96 03/30/20 13:00 83 24 120/47 (71) 97 03/30/20 12:45 84 24 116/47 (70) 95 03/30/20 12:30 85 24 75/29 (44) 95 03/30/20 12:22 103/52 03/30/20 12:00 75 03/30/20 12:00 Mechanical Ventilator Mechanical Ventilator 03/30/20 12:00 98.5 84 24 103/52 (69) 96 03/30/20 12:00 83 03/30/20 11:30 93/46 03/30/20 11:30 85 24 93/46 (62) 90 03/30/20 11:05 83 24 60 03/30/20 11:00 84 24 87/36 (53) 92 03/30/20 10:30 82 24 92/30 (50) 93 Intake and Output 03/30/20 03/31/20 19:00 07:00 Intake Total 2701.46139 ml 2366.1520 ml Output Total 530 ml 735 ml Balance 2171.60209 ml 1631.1520 ml Free Water 300 ml 300 ml IV Total 1801.39729 ml 1466.1520 ml Tube Feeding 600 ml 600 ml Output Urine Total 530 ml 735 ml # Bowel Movements 2 Laboratory Tests 03/31/20 07:55: White Blood Count 26.7*H, Red Blood Count 2.54L, Hemoglobin 9.1L, Hematocrit 27.0L, Mean Corpuscular Volume 106H, Mean Corpuscular Hemoglobin 35.9H, Mean Corpuscular Hemoglobin Concent 33.8, Red Cell Distribution Width 22.8H, Platelet Count 115#L, Mean Platelet Volume 8.8, Neutrophils (%) (Auto) , Lymphocytes (%) (Auto) , Monocytes (%) (Auto) , Eosinophils (%) (Auto) , Basophils (%) (Auto) , Neutrophils % (Manual) [Pending], Lymphocytes % (Manual) [Pending], Platelet Estimate [Pending], Platelet Morphology [Pending], Sodium Level 136, Potassium Level 5.3H, Chloride Level 98, Carbon Dioxide Level 37H, Anion Gap 1L, Blood Urea Nitrogen 59H, Creatinine 0.8, Estimat Glomerular Filtration Rate > 60, Glucose Level 151H, Uric Acid 6.5, Calcium Level 9.1, Phosphorus Level 4.5, Magnesium Level 2.6H, Total Bilirubin 1.7H, Direct Bilirubin 1.2H, Aspartate Amino Transf (AST/SGOT) 654H, Alanine Aminotransferase (ALT/SGPT) 310H, Alkaline Phosphatase 391H, Ammonia 106H, Total Creatine Kinase 81, C-Reactive Protein, Quantitative 1.7H, Total Protein 5.8L, Albumin 2.1L, Globulin 3.7, Albumin/Globulin Ratio 0.6L Height (Feet): 5 Height (Inches): 1.00 Weight (Pounds): 223 General Appearance: lethargic EENT: normal ENT inspection Neck: supple Cardiovascular: tachycardia Respiratory/Chest: decreased breath sounds Abdomen: soft, hypoactive bowel sounds Extremities: non-tender Tam Spicer MD March 31, 2020 10:18
[2020-03-31] MEDS ORDERED: Sodium Polystyrene Sulfonate 15gm Powder NG SCH (12:15)
--- NOTE | 2020-03-31 12:18 | Nephrology Progress Note ---
Assessment/Plan Problem List: (1) Respiratory failure with hypoxia (2) Electrolyte imbalance Assessment: Hyponatremia resolved -hyperkalemia resolved (3) COVID-19 (4) Cellulitis (5) Hypothyroid Assessment Hyponatremia. Serum sodium started drifting down from March 16. Hyperkalemia. Septic shock. Acute respiratory failure. Respiratory failure and COVID pneumonia. History of cirrhosis/splenomegaly Anemia Bilateral lower extremity cellulitis Plan March 31: Increase lactulose dose 1 dose of Kayexalate Continue to monitor liver enzymes Patient unresponsive despite discontinuation of all mind altering medications Neuro eval? March 30 Electrolytes and bicarb improved We will cut down D5W IV fluid Blood sugar better controlled Liver enzymes still remains elevated Discussed with DAO March 29: Worsening leukocytosis Serum sodium lowering Blood sugar still elevated need insulin adjustment Continue to monitor electrolytes and renal parameters Continue per pulmonary Discussed with DAO Sarkar March 28: Serum sodium down to 160 Continue with D5W Continue per pulmonary March 27: Serum sodium vahe Patient retaining CO2 Will start D5W IV fluid Hold Diamox for now until further comments from senior clinical research scientist Continue to monitor electrolytes Midodrine dose increased March 26: Remains unstable. Lasix and potassium chloride discontinued. IV Diamox initiated. ABG noted. Midodrine initiated. Continue per pulmonary and ID. Statins discontinued due to elevated liver enzymes. Continue to monitor electrolytes and renal parameters and ABG. Patient remains full code. 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 per magnetic resonance imaging director Taper steroids's deferred to senior clinical research scientist Urine sodium is below 20 Serum ammonia is elevated will start lactulose Patient on Solu-Medrol and Solu-Cortef will discontinue Solu-Cortef Will try to gently diurese for severe edema meanwhile administering albumin 25% as needed Monitor electrolytes and renal parameters We will add midodrine 10 mg 3 times a day via NG tube Decrease dosage of IV Synthroid Discussed with DAO Starr Subjective ROS Limited/Unobtainable: Yes Objective Objective Last 24 Hour Vital Signs Date Time Temp Pulse Resp B/P (MAP) Pulse Ox O2 Delivery O2 Flow Rate FiO2 03/31/20 12:01 100 03/31/20 12:00 Mechanical Ventilator Mechanical Ventilator 03/31/20 12:00 97.9 79 24 111/59 (76) 92 03/31/20 11:30 80 24 116/48 (70) 90 03/31/20 11:26 111/57 03/31/20 11:19 80 24 100 03/31/20 11:00 80 24 114/64 (81) 91 03/31/20 10:30 81 24 109/55 (73) 92 03/31/20 10:00 81 24 106/46 (66) 93 03/31/20 09:30 82 24 97/43 (61) 93 03/31/20 09:00 80 24 89/39 (56) 92 03/31/20 08:30 81 24 87/38 (54) 91 03/31/20 08:07 90/42 03/31/20 08:00 79 03/31/20 08:00 98.2 79 24 90/42 (58) 94 03/31/20 08:00 100 03/31/20 08:00 Mechanical Ventilator Mechanical Ventilator 03/31/20 07:30 80 24 100 03/31/20 07:30 80 24 100/40 (60) 95 03/31/20 07:00 101/47 03/31/20 07:00 80 24 101/47 (65) 95 03/31/20 06:45 81 24 104/48 (66) 95 03/31/20 06:30 81 24 103/52 (69) 95 03/31/20 06:15 81 24 100/46 (64) 93 03/31/20 06:00 100/46 03/31/20 06:00 82 23 94/45 (61) 93 03/31/20 05:45 82 24 95/47 (63) 93 03/31/20 05:30 81 24 88/40 (56) 93 03/31/20 05:15 81 24 96/45 (62) 95 03/31/20 05:00 81 24 97/42 (60) 95 03/31/20 04:45 81 24 80/45 (57) 94 03/31/20 04:37 106/51 03/31/20 04:37 106/51 03/31/20 04:30 82 24 109/46 (67) 96 03/31/20 04:15 82 24 106/51 (69) 96 03/31/20 04:00 100 5/15/20 04:00 106/51 03/31/20 04:00 Mechanical Ventilator Mechanical Ventilator 03/31/20 04:00 98.2 82 25 105/50 (68) 95 03/31/20 03:45 82 25 100/45 (63) 95 03/31/20 03:30 82 03/31/20 03:30 82 24 97/43 (61) 94 03/31/20 03:19 82 24 100 03/31/20 03:15 82 24 94/45 (61) 94 03/31/20 03:00 94/45 03/31/20 03:00 81 24 100/48 (65) 94 03/31/20 02:45 81 24 102/48 (66) 94 03/31/20 02:30 82 24 106/51 (69) 95 03/31/20 02:15 82 24 112/60 (77) 95 03/31/20 02:00 112/60 03/31/20 02:00 81 24 101/48 (65) 92 03/31/20 01:45 83 24 95/65 (75) 95 03/31/20 01:30 81 24 112/54 (73) 99 03/31/20 01:15 81 24 110/55 (73) 98 03/31/20 01:10 111/58 03/31/20 01:00 112/60 03/31/20 01:00 81 24 111/58 (75) 98 03/31/20 00:45 81 24 108/55 (72) 98 03/31/20 00:30 78 24 104/50 (68) 98 03/31/20 00:15 82 24 113/53 (73) 98 03/31/20 00:00 100 03/31/20 00:00 113/53 03/31/20 00:00 Mechanical Ventilator Mechanical Ventilator 03/31/20 00:00 98.2 83 24 118/56 (76) 98 03/30/20 23:45 83 24 115/59 (77) 98 03/30/20 23:30 84 24 119/52 (74) 99 03/30/20 23:28 84 03/30/20 23:15 83 24 116/50 (72) 99 03/30/20 23:12 84 24 100 03/30/20 23:00 116/50 03/30/20 23:00 83 24 112/56 (74) 98 03/30/20 22:45 84 24 115/51 (72) 98 03/30/20 22:30 84 24 120/49 (72) 99 03/30/20 22:15 84 24 126/62 (83) 99 03/30/20 22:00 126/62 03/30/20 22:00 83 23 122/53 (76) 97 03/30/20 21:53 113/55 03/30/20 21:45 83 24 113/55 (74) 98 03/30/20 21:30 84 24 111/51 (71) 98 03/30/20 21:15 85 24 109/58 (75) 98 03/30/20 21:00 86 24 119/58 (78) 97 03/30/20 21:00 109/58 03/30/20 20:45 85 24 110/55 (73) 96 03/30/20 20:30 87 24 108/55 (72) 95 03/30/20 20:15 87 24 100/42 (61) 90 03/30/20 20:00 Mechanical Ventilator Mechanical Ventilator 03/30/20 20:00 98.3 81 24 109/81 (90) 95 03/30/20 20:00 100/58 03/30/20 20:00 75 03/30/20 19:31 81 03/30/20 19:30 81 24 115/56 (75) 94 03/30/20 19:22 80 24 95 Mechanical Ventilator 75 03/30/20 19:22 80 24 75 03/30/20 19:00 80 24 109/58 (75) 95 03/30/20 18:30 80 24 114/57 (76) 95 03/30/20 18:14 125/60 03/30/20 18:00 80 24 125/60 (81) 96 03/30/20 17:30 80 24 127/54 (78) 96 03/30/20 17:00 80 24 130/51 (77) 96 03/30/20 16:30 81 24 124/71 (88) 96 03/30/20 16:00 82 03/30/20 16:00 75 03/30/20 16:00 Mechanical Ventilator Mechanical Ventilator 03/30/20 16:00 81 24 128/61 (83) 95 03/30/20 15:25 110/62 03/30/20 15:05 102 24 60 03/30/20 15:00 80 24 113/54 (73) 93 03/30/20 14:30 83 24 120/51 (74) 94 03/30/20 14:00 83 24 123/56 (78) 95 03/30/20 13:30 82 24 109/42 (64) 96 03/30/20 13:00 83 24 120/47 (71) 97 03/30/20 12:45 84 24 116/47 (70) 95 03/30/20 12:30 85 24 75/29 (44) 95 03/30/20 12:22 103/52 Intake and Output 03/30/20 03/31/20 19:00 07:00 Intake Total 2701.58753 ml 2366.1520 ml Output Total 530 ml 735 ml Balance 2171.26441 ml 1631.1520 ml Free Water 300 ml 300 ml IV Total 1801.99552 ml 1466.1520 ml Tube Feeding 600 ml 600 ml Output Urine Total 530 ml 735 ml # Bowel Movements 2 Laboratory Tests 03/31/20 07:55: White Blood Count 26.7*H, Red Blood Count 2.54L, Hemoglobin 9.1L, Hematocrit 27.0L, Mean Corpuscular Volume 106H, Mean Corpuscular Hemoglobin 35.9H, Mean Corpuscular Hemoglobin Concent 33.8, Red Cell Distribution Width 22.8H, Platelet Count 115#L, Mean Platelet Volume 8.8, Neutrophils (%) (Auto) , Lymphocytes (%) (Auto) , Monocytes (%) (Auto) , Eosinophils (%) (Auto) , Basophils (%) (Auto) , Differential Total Cells Counted 100, Neutrophils % ( Manual) 88H, Lymphocytes % (Manual) 2L, Monocytes % (Manual) 7, Eosinophils % ( Manual) 3, Basophils % (Manual) 0, Band Neutrophils 0, Platelet Estimate DecreasedL, Platelet Morphology Normal, Polychromasia 1+, Hypochromasia 1+, Anisocytosis 2+, Macrocytosis 1+, Sodium Level 136, Potassium Level 5.3H, Chloride Level 98, Carbon Dioxide Level 37H, Anion Gap 1L, Blood Urea Nitrogen 59H, Creatinine 0.8, Estimat Glomerular Filtration Rate > 60, Glucose Level 151H , Uric Acid 6.5, Calcium Level 9.1, Phosphorus Level 4.5, Magnesium Level 2.6H, Total Bilirubin 1.7H, Direct Bilirubin 1.2H, Aspartate Amino Transf (AST/SGOT) 654H, Alanine Aminotransferase (ALT/SGPT) 310H, Alkaline Phosphatase 391H, Ammonia 106H, Total Creatine Kinase 81, C-Reactive Protein, Quantitative 1.7H, Total Protein 5.8L, Albumin 2.1L, Globulin 3.7, Albumin/Globulin Ratio 0.6L Height (Feet): 5 Height (Inches): 1.00 Weight (Pounds): 223 General Appearance: no apparent distress, other - Unresponsive EENT: other - On ventilator Cardiovascular: tachycardia - Rate 80s Respiratory/Chest: decreased breath sounds Objective No change Cristhian Granados MD March 31, 2020 12:18
[2020-03-31] MEDS: Fluconazole 100mg tab NG SCH (13:11)
--- NOTE | 2020-03-31 13:17 | Diagnostic Imaging Report ---
Procedure: XRAY Chest 1v Reason for study: Shortness of breath. Comparison films: 03/25/2020. FINDINGS: Endotracheal tube, NG tube and left PICC line remain in place. There are multiple overlying artifacts. Bilateral alveolar densities unchanged. Cardiac and mediastinal silhouette are within normal limits. Small effusions unchanged patient is status post vertebroplasty in the mid thoracic spine IMPRESSION: NO SIGNIFICANT CHANGE COMPARED TO PREVIOUS EXAM.
--- NOTE | 2020-03-31 14:00 | Surgery Progress Note ---
Surgery Progress Note Subjective Additional Comments ill appearing worsening vent settings back up Objective Last 24 Hour Vital Signs Date Time Temp Pulse Resp B/P (MAP) Pulse Ox O2 Delivery O2 Flow Rate FiO2 03/31/20 12:01 100 03/31/20 12:00 Mechanical Ventilator Mechanical Ventilator 03/31/20 12:00 97.9 79 24 111/59 (76) 92 03/31/20 11:30 80 24 116/48 (70) 90 03/31/20 11:26 111/57 03/31/20 11:19 80 24 100 03/31/20 11:00 80 24 114/64 (81) 91 03/31/20 10:30 81 24 109/55 (73) 92 03/31/20 10:00 81 24 106/46 (66) 93 03/31/20 09:30 82 24 97/43 (61) 93 03/31/20 09:00 80 24 89/39 (56) 92 03/31/20 08:30 81 24 87/38 (54) 91 03/31/20 08:07 90/42 03/31/20 08:00 79 03/31/20 08:00 98.2 79 24 90/42 (58) 94 03/31/20 08:00 100 03/31/20 08:00 Mechanical Ventilator Mechanical Ventilator 03/31/20 07:30 80 24 100 03/31/20 07:30 80 24 100/40 (60) 95 03/31/20 07:00 101/47 03/31/20 07:00 80 24 101/47 (65) 95 03/31/20 06:45 81 24 104/48 (66) 95 03/31/20 06:30 81 24 103/52 (69) 95 03/31/20 06:15 81 24 100/46 (64) 93 03/31/20 06:00 100/46 03/31/20 06:00 82 23 94/45 (61) 93 03/31/20 05:45 82 24 95/47 (63) 93 03/31/20 05:30 81 24 88/40 (56) 93 03/31/20 05:15 81 24 96/45 (62) 95 03/31/20 05:00 81 24 97/42 (60) 95 03/31/20 04:45 81 24 80/45 (57) 94 03/31/20 04:37 106/51 03/31/20 04:37 106/51 03/31/20 04:30 82 24 109/46 (67) 96 03/31/20 04:15 82 24 106/51 (69) 96 03/31/20 04:00 100 03/31/20 04:00 106/51 03/31/20 04:00 Mechanical Ventilator Mechanical Ventilator 03/31/20 04:00 98.2 82 25 105/50 (68) 95 03/31/20 03:45 82 25 100/45 (63) 95 03/31/20 03:30 82 03/31/20 03:30 82 24 97/43 (61) 94 03/31/20 03:19 82 24 100 03/31/20 03:15 82 24 94/45 (61) 94 03/31/20 03:00 94/45 03/31/20 03:00 81 24 100/48 (65) 94 03/31/20 02:45 81 24 102/48 (66) 94 03/31/20 02:30 82 24 106/51 (69) 95 03/31/20 02:15 82 24 112/60 (77) 95 03/31/20 02:00 112/60 03/31/20 02:00 81 24 101/48 (65) 92 03/31/20 01:45 83 24 95/65 (75) 95 03/31/20 01:30 81 24 112/54 (73) 99 03/31/20 01:15 81 24 110/55 (73) 98 03/31/20 01:10 111/58 03/31/20 01:00 112/60 03/31/20 01:00 81 24 111/58 (75) 98 03/31/20 00:45 81 24 108/55 (72) 98 03/31/20 00:30 78 24 104/50 (68) 98 03/31/20 00:15 82 24 113/53 (73) 98 03/31/20 00:00 100 03/31/20 00:00 113/53 03/31/20 00:00 Mechanical Ventilator Mechanical Ventilator 03/31/20 00:00 98.2 83 24 118/56 (76) 98 03/30/20 23:45 83 24 115/59 (77) 98 03/30/20 23:30 84 24 119/52 (74) 99 03/30/20 23:28 84 03/30/20 23:15 83 24 116/50 (72) 99 03/30/20 23:12 84 24 100 03/30/20 23:00 116/50 03/30/20 23:00 83 24 112/56 (74) 98 03/30/20 22:45 84 24 115/51 (72) 98 03/30/20 22:30 84 24 120/49 (72) 99 03/30/20 22:15 84 24 126/62 (83) 99 03/30/20 22:00 126/62 03/30/20 22:00 83 23 122/53 (76) 97 03/30/20 21:53 113/55 03/30/20 21:45 83 24 113/55 (74) 98 03/30/20 21:30 84 24 111/51 (71) 98 03/30/20 21:15 85 24 109/58 (75) 98 03/30/20 21:00 86 24 119/58 (78) 97 03/30/20 21:00 109/58 03/30/20 20:45 85 24 110/55 (73) 96 03/30/20 20:30 87 24 108/55 (72) 95 03/30/20 20:15 87 24 100/42 (61) 90 03/30/20 20:00 Mechanical Ventilator Mechanical Ventilator 03/30/20 20:00 98.3 81 24 109/81 (90) 95 03/30/20 20:00 100/58 03/30/20 20:00 75 03/30/20 19:31 81 03/30/20 19:30 81 24 115/56 (75) 94 03/30/20 19:22 80 24 95 Mechanical Ventilator 75 03/30/20 19:22 80 24 75 03/30/20 19:00 80 24 109/58 (75) 95 03/30/20 18:30 80 24 114/57 (76) 95 03/30/20 18:14 125/60 03/30/20 18:00 80 24 125/60 (81) 96 03/30/20 17:30 80 24 127/54 (78) 96 03/30/20 17:00 80 24 130/51 (77) 96 03/30/20 16:30 81 24 124/71 (88) 96 03/30/20 16:00 82 03/30/20 16:00 75 03/30/20 16:00 Mechanical Ventilator Mechanical Ventilator 03/30/20 16:00 81 24 128/61 (83) 95 03/30/20 15:25 110/62 03/30/20 15:05 102 24 60 03/30/20 15:00 80 24 113/54 (73) 93 03/30/20 14:30 83 24 120/51 (74) 94 I&O Intake and Output 03/30/20 03/31/20 19:00 07:00 Intake Total 2701.96224 ml 2366.1520 ml Output Total 530 ml 735 ml Balance 2171.36622 ml 1631.1520 ml Free Water 300 ml 300 ml IV Total 1801.36020 ml 1466.1520 ml Tube Feeding 600 ml 600 ml Output Urine Total 530 ml 735 ml # Bowel Movements 2 Cardiovascular: RSR Respiratory: decreased breath sounds Abdomen: soft, non-tender, present bowel sounds Extremities: no cyanosis Laboratory Tests Test 03/31/20 07:55 White Blood Count 26.7 K/UL (4.8-10.8) *H Red Blood Count 2.54 M/UL (4.20-5.40) L Hemoglobin 9.1 G/DL (12.0-16.0) L Hematocrit 27.0 % (37.0-47.0) L Mean Corpuscular Volume 106 FL (80-99) H Mean Corpuscular Hemoglobin 35.9 PG (27.0-31.0) H Mean Corpuscular Hemoglobin Concent 33.8 G/DL (32.0-36.0) Red Cell Distribution Width 22.8 % (11.6-14.8) H Platelet Count 115 K/UL (150-450) #L Mean Platelet Volume 8.8 FL (6.5-10.1) Neutrophils (%) (Auto) % (45.0-75.0) Lymphocytes (%) (Auto) % (20.0-45.0) Monocytes (%) (Auto) % (1.0-10.0) Eosinophils (%) (Auto) % (0.0-3.0) Basophils (%) (Auto) % (0.0-2.0) Differential Total Cells Counted 100 Neutrophils % (Manual) 88 % (45-75) H Lymphocytes % (Manual) 2 % (20-45) L Monocytes % (Manual) 7 % (1-10) Eosinophils % (Manual) 3 % (0-3) Basophils % (Manual) 0 % (0-2) Band Neutrophils 0 % (0-8) Platelet Estimate Decreased L Platelet Morphology Normal Polychromasia 1+ Hypochromasia 1+ Anisocytosis 2+ Macrocytosis 1+ Sodium Level 136 MMOL/L (136-145) Potassium Level 5.3 MMOL/L (3.5-5.1) H Chloride Level 98 MMOL/L (98-107) Carbon Dioxide Level 37 MMOL/L (21-32) H Anion Gap 1 mmol/L (5-15) L Blood Urea Nitrogen 59 mg/dL (7-18) H Creatinine 0.8 MG/DL (0.55-1.30) Estimat Glomerular Filtration Rate > 60 mL/min (>60) Glucose Level 151 MG/DL (74-106) H Uric Acid 6.5 MG/DL (2.6-7.2) Calcium Level 9.1 MG/DL (8.5-10.1) Phosphorus Level 4.5 MG/DL (2.5-4.9) Magnesium Level 2.6 MG/DL (1.8-2.4) H Total Bilirubin 1.7 MG/DL (0.2-1.0) H Direct Bilirubin 1.2 MG/DL (0.0-0.3) H Aspartate Amino Transf (AST/SGOT) 654 U/L (15-37) H Alanine Aminotransferase (ALT/SGPT) 310 U/L (12-78) H Alkaline Phosphatase 391 U/L (46-116) H Ammonia 106 umol/L (11-32) H Total Creatine Kinase 81 U/L (26-308) C-Reactive Protein, Quantitative 1.7 mg/dL (0.00-0.90) H Total Protein 5.8 G/DL (6.4-8.2) L Albumin 2.1 G/DL (3.4-5.0) L Globulin 3.7 g/dL Albumin/Globulin Ratio 0.6 (1.0-2.7) L Plan Problems: (1) Cellulitis Assessment & Plan: bilateral lower extremity cellulitis / edema chronic venous status changes dermatitis no abscess no purulent drainage ulcerations forming. keep lower extremity elevated while in bed apply skin protectant / moisturizing cream daily okay to shower okay to wrap soft after cream abx as per ID for cellulitis okay for diet duplex ordered trend labs will follow with recs thank you No evidence of deep venous thrombosis involving the visualized veins of the RIGHT lower extremity. refused eval of left COVID ++ cxr noted cont current supportive care improving labs stable improving slowly wean pressors as tolerated Patient is acutely worsened intubated on vent support 2 pressors now worsening labs worsening Prognosis is guarded we will continue with maximal support efforts weaning vent weaning pressors leukocytosis trend lft's Diffuse bilateral interstitial and airspace opacities (2) COVID-19 Assessment & Plan: see above Theron Sotomayor March 31, 2020 14:00
[2020-03-31] MEDS: Lactulose 20gm/30ml UDC ORAL SCH ×2 (15:13→22:09)
--- NOTE | 2020-03-31 16:06 | Hematology/Onc Progress Note ---
Assessment/Plan Assessment/Plan Assessment and Recs # Pancytopenia -- multiple etiologies could be related to underlying liver disease, medication-induced, infection versus viral syndrome versus underlying bone marrow cause, in this case, has severe liver disease and cirrhosis, HEP C++ , also cellulitis, COVID19++ --> peripheral smear has been ordered and does not show significant abnormalities and none noted --> Medications have been reviewed --> Continue to monitor for improvement, trend cbc --> Hep panel and HIV are both negative --> US abd ordered to r/o cirrhosis and hepatosplenomegaly ->CIRRHOSIS IS NOTED , LARGE SPLEEN --> reverse isolation if ANC is <2000 --> Give neupogen if ANC <1000 --> Transfuse if hgb <7, with 1 unit prbc --> anemia panel ordered as well-->CW acd --> hgb trend 7-->7.1-->8.4-->8.2 -->8.7-->9.9-->9.2-->9.5-->9.1-->10.1 -->9 --> plt 145k-->152-->162k-->149k-->121k-->171k-->149-->163-->135 --> wbc 3.4-->3.5->3.9->4.4-->11-->10.8 -->15->23-->26-->27-->26.7 --> abx: sameer/rifaximin-->levaquin /vanc-->sameer # Leukocytosis with Cellulitis of the lower extremities --> continue abx as needed as per id --> Started on IV antibiotics-->azithro/cefepime-->levaquin-->sameer --> as per surg recs, wound care --> on steriods at this time, likely contributor # Ftt --> remains on mirtazapine --> daily weights # Elevated LFTS --> as per gi --> due to cirrhosis # Respiratory failure --> s/p intubation 03/16 --> prone positioning as needed by pulm # Dvt ppx lovenox sq The timing of this note does not necessarily reflect the time of the patient was seen. Greatly appreciate consultation. Subjective Allergies: Coded Allergies: No Known Allergies (Unverified , 02/29/20) Subjective 03/02 no events, no bleeding, hgb 7.1, no hemolysis 03/03 s/p blood, hgb improved to 8.4, stool ob negtive, on abx 03/05 asleep, no acute distress, hgb 8.2 03/06 remains comfortable, on abx, plt remains low 03/07 is on nonrebreather, no night sweats, labs are noted 03/08 labs reviewed, being diuresed, seen by cards, psych, labs noted 03/09 lasix adjusted, wbc remains low at 3.9, reviewed meds, smear 03/10 no night sweats, no bleeding, labs noted, smear noted 03/12 labs noted, none completed, have reordered, cellulitis better 03/13 is continuing with chest pain, cards aware, no further studies until covid neg 03/14 labs noted, no bleeding, diuresis as needed, hgb stable 03/15 alseep is cooperative, no bleeding, meds noted 03/16 no bleeding or chills, hgb 10.8, no night sweats, no major events 03/17 now intubated, no bleeding, labs noted, dw rn 03/19 remains intubated, no bleeding, labs noted, on pressors 03/20 prone posiition, seen by gi and renal, nob leeding, hgb 10.1 03/21 sedated, remains agitated, pulling on 2p restraints, no bleeding 03/22 icu, h/h stable, finished plaq/zithro, no acute distress 03/23 in icu, remains restless no bleeding, labs noted, no bleeding 03/24 in icu, poor prognosis, no night sweats, no fc 03/26 on vent, unresponsive, no bleeding, wbc high is on abx and steriods 03/27 remains on vent, ngt, no bleeding, already on abx on steriods 03/28 labs noted, no bleeding, wbc 23k, hgb 9, still with ongoing leukocytosis, ngt feeds 03/29 icu, started on sameer, steroids being tapered, wbc 26.4, no sob 03/30 no major changes, in icu, resp distress, on vent, wbc remains elevated 03/31 picc intact, wbc 26, amonia 104, no sob, continues on steroids Objective Objective Current Medications Medications (Trade) Dose Ordered Sig/Dolores Route PRN Reason Start Time Stop Time Status Last Admin Dose Admin Acetaminophen (Tylenol) 650 mg Q4H PRN ORAL Mild Pain (Pain Scale 1-3) 03/13/20 14:53 04/12/20 14:52 03/25/20 12:35 Acetaminophen (Tylenol) 650 mg Q4H PRN ORAL Temp >100 03/13/20 14:53 04/12/20 14:52 03/25/20 17:16 Chlorhexidine Gluconate (Lucretia-Hex 2%) 1 applic DAILY@2000 TOPIC 03/13/20 20:00 06/11/20 19:59 03/30/20 21:18 Dextrose 1,000 ml @ 50 mls/hr Q20H IV 03/30/20 14:00 04/29/20 13:59 03/31/20 08:08 Dextrose (Dextrose 50%) 25 ml Q30M PRN IV Hypoglycemia 03/28/20 06:45 06/26/20 06:44 Dextrose (Dextrose 50%) 50 ml Q30M PRN IV Hypoglycemia 03/28/20 06:45 06/26/20 06:44 Dopamine HCl/ Dextrose 250 ml @ 0 mls/hr Q24H IV 03/16/20 19:30 06/14/20 19:29 03/31/20 15:14 Fentanyl Citrate 1000 mcg/Sodium Chloride 100 ml @ 0 mls/hr Q24H IV 03/27/20 22:30 04/03/20 22:29 03/27/20 22:56 Fluconazole (Diflucan) 200 mg DAILY NG 03/31/20 11:00 04/07/20 10:59 03/31/20 13:11 Hydralazine HCl (Apresoline) 10 mg Q6H PRN IV For High Blood Pressure 03/24/20 16:45 06/22/20 16:44 Insulin Aspart (NovoLOG) EVERY 4 HOURS SUBQ 03/26/20 09:00 06/24/20 08:59 03/31/20 13:40 Insulin Aspart (NovoLOG) 30 units EVERY 4 HOURS SUBQ 03/30/20 09:00 06/26/20 08:59 03/31/20 13:40 Insulin Detemir (Levemir) 50 units Q12HR SUBQ 03/29/20 09:00 06/20/20 18:59 03/31/20 09:25 Lactulose (Cephulac) 30 gm Q8HR ORAL 03/31/20 14:00 04/30/20 17:59 03/31/20 15:13 Levothyroxine Sodium (Synthroid) 50 mcg DAILY IV 03/21/20 09:00 04/17/20 11:59 03/31/20 09:25 Lorazepam (Ativan 2mg/ml 1ml) 1 mg Q2H PRN IV For Anxiety 03/25/20 16:30 04/01/20 16:29 03/25/20 23:39 Meropenem 1 gm/ Sodium Chloride 55 ml @ 110 mls/hr Q8HR IVPB 03/29/20 14:00 04/03/20 13:59 03/31/20 13:12 Methylprednisolone Sodium Succinate (Solu-MEDROL) 10 mg DAILY IVP 03/30/20 09:00 04/02/20 08:59 03/31/20 08:06 Midodrine (Pro-Amatine) 10 mg THREE TIMES A DAY NG 03/27/20 09:00 06/20/20 12:29 03/31/20 13:11 Non-Formulary Medication (Non-Formulary Med) 1 ea DAILY IV 03/18/20 09:00 04/17/20 08:59 UNV Norepinephrine Bitartrate 4 mg/ Dextrose 250 ml @ 0 mls/hr Q24H PRN IV For hypotension 03/25/20 16:30 04/24/20 16:29 Vasopressin 100 units/Sodium Chloride 100 ml @ 0 mls/hr Q24H PRN IV For hypotension 03/16/20 11:00 04/15/20 10:59 03/19/20 18:03 Last 24 Hour Vital Signs Date Time Temp Pulse Resp B/P (MAP) Pulse Ox O2 Delivery O2 Flow Rate FiO2 03/31/20 15:19 80 24 100 03/31/20 15:14 110/46 03/31/20 12:01 100 03/31/20 12:00 Mechanical Ventilator Mechanical Ventilator 03/31/20 12:00 97.9 79 24 111/59 (76) 92 03/31/20 11:30 80 24 116/48 (70) 90 03/31/20 11:26 111/57 03/31/20 11:19 80 24 100 03/31/20 11:00 80 24 114/64 (81) 91 03/31/20 10:30 81 24 109/55 (73) 92 03/31/20 10:00 81 24 106/46 (66) 93 03/31/20 09:30 82 24 97/43 (61) 93 03/31/20 09:00 80 24 89/39 (56) 92 03/31/20 08:30 81 24 87/38 (54) 91 03/31/20 08:07 90/42 03/31/20 08:00 79 03/31/20 08:00 98.2 79 24 90/42 (58) 94 03/31/20 08:00 100 03/31/20 08:00 Mechanical Ventilator Mechanical Ventilator 03/31/20 07:30 80 24 100 03/31/20 07:30 80 24 100/40 (60) 95 03/31/20 07:00 101/47 03/31/20 07:00 80 24 101/47 (65) 95 03/31/20 06:45 81 24 104/48 (66) 95 03/31/20 06:30 81 24 103/52 (69) 95 03/31/20 06:15 81 24 100/46 (64) 93 03/31/20 06:00 100/46 03/31/20 06:00 82 23 94/45 (61) 93 03/31/20 05:45 82 24 95/47 (63) 93 03/31/20 05:30 81 24 88/40 (56) 93 03/31/20 05:15 81 24 96/45 (62) 95 03/31/20 05:00 81 24 97/42 (60) 95 03/31/20 04:45 81 24 80/45 (57) 94 03/31/20 04:37 106/51 03/31/20 04:37 106/51 03/31/20 04:30 82 24 109/46 (67) 96 03/31/20 04:15 82 24 106/51 (69) 96 03/31/20 04:00 100 03/31/20 04:00 106/51 03/31/20 04:00 Mechanical Ventilator Mechanical Ventilator 03/31/20 04:00 98.2 82 25 105/50 (68) 95 03/31/20 03:45 82 25 100/45 (63) 95 03/31/20 03:30 82 03/31/20 03:30 82 24 97/43 (61) 94 03/31/20 03:19 82 24 100 03/31/20 03:15 82 24 94/45 (61) 94 03/31/20 03:00 94/45 03/31/20 03:00 81 24 100/48 (65) 94 03/31/20 02:45 81 24 102/48 (66) 94 03/31/20 02:30 82 24 106/51 (69) 95 03/31/20 02:15 82 24 112/60 (77) 95 03/31/20 02:00 112/60 03/31/20 02:00 81 24 101/48 (65) 92 03/31/20 01:45 83 24 95/65 (75) 95 03/31/20 01:30 81 24 112/54 (73) 99 03/31/20 01:15 81 24 110/55 (73) 98 03/31/20 01:10 111/58 03/31/20 01:00 112/60 03/31/20 01:00 81 24 111/58 (75) 98 03/31/20 00:45 81 24 108/55 (72) 98 03/31/20 00:30 78 24 104/50 (68) 98 03/31/20 00:15 82 24 113/53 (73) 98 03/31/20 00:00 100 03/31/20 00:00 113/53 03/31/20 00:00 Mechanical Ventilator Mechanical Ventilator 03/31/20 00:00 98.2 83 24 118/56 (76) 98 03/30/20 23:45 83 24 115/59 (77) 98 03/30/20 23:30 84 24 119/52 (74) 99 03/30/20 23:28 84 03/30/20 23:15 83 24 116/50 (72) 99 03/30/20 23:12 84 24 100 03/30/20 23:00 116/50 03/30/20 23:00 83 24 112/56 (74) 98 03/30/20 22:45 84 24 115/51 (72) 98 03/30/20 22:30 84 24 120/49 (72) 99 03/30/20 22:15 84 24 126/62 (83) 99 03/30/20 22:00 126/62 03/30/20 22:00 83 23 122/53 (76) 97 03/30/20 21:53 113/55 03/30/20 21:45 83 24 113/55 (74) 98 03/30/20 21:30 84 24 111/51 (71) 98 03/30/20 21:15 85 24 109/58 (75) 98 03/30/20 21:00 86 24 119/58 (78) 97 03/30/20 21:00 109/58 03/30/20 20:45 85 24 110/55 (73) 96 03/30/20 20:30 87 24 108/55 (72) 95 03/30/20 20:15 87 24 100/42 (61) 90 03/30/20 20:00 Mechanical Ventilator Mechanical Ventilator 03/30/20 20:00 98.3 81 24 109/81 (90) 95 03/30/20 20:00 100/58 03/30/20 20:00 75 03/30/20 19:31 81 03/30/20 19:30 81 24 115/56 (75) 94 03/30/20 19:22 80 24 95 Mechanical Ventilator 75 03/30/20 19:22 80 24 75 03/30/20 19:00 80 24 109/58 (75) 95 03/30/20 18:30 80 24 114/57 (76) 95 03/30/20 18:14 125/60 03/30/20 18:00 80 24 125/60 (81) 96 03/30/20 17:30 80 24 127/54 (78) 96 03/30/20 17:00 80 24 130/51 (77) 96 03/30/20 16:30 81 24 124/71 (88) 96 03/30/20 16:00 82 03/30/20 16:00 75 03/30/20 16:00 Mechanical Ventilator Mechanical Ventilator 03/30/20 16:00 81 24 128/61 (83) 95 03/30/20 15:25 110/62 03/30/20 15:05 102 24 60 03/30/20 15:00 80 24 113/54 (73) 93 03/30/20 14:30 83 24 120/51 (74) 94 03/30/20 14:00 83 24 123/56 (78) 95 03/30/20 13:30 82 24 109/42 (64) 96 03/30/20 13:00 83 24 120/47 (71) 97 03/30/20 12:45 84 24 116/47 (70) 95 03/30/20 12:30 85 24 75/29 (44) 95 03/30/20 12:22 103/52 03/30/20 12:00 75 03/30/20 12:00 Mechanical Ventilator Mechanical Ventilator 03/30/20 12:00 98.5 84 24 103/52 (69) 96 03/30/20 12:00 83 03/30/20 11:30 93/46 03/30/20 11:30 85 24 93/46 (62) 90 03/30/20 11:05 83 24 60 03/30/20 11:00 84 24 87/36 (53) 92 03/30/20 10:30 82 24 92/30 (50) 93 03/30/20 10:00 82 24 90/40 (57) 94 03/30/20 09:30 83 24 90/40 (57) 91 03/30/20 09:07 98/26 03/30/20 09:00 85 24 76/61 (66) 97 03/30/20 08:30 86 24 91/39 (56) 92 03/30/20 08:00 Mechanical Ventilator Mechanical Ventilator 03/30/20 08:00 60 03/30/20 08:00 98.6 83 24 91/35 (53) 93 03/30/20 08:00 83 03/30/20 07:30 81 24 85/41 (56) 94 03/30/20 07:05 83 24 60 03/30/20 07:00 88/39 03/30/20 07:00 80 25 88/39 (55) 94 03/30/20 06:48 79 24 92/43 (59) 95 03/30/20 06:45 80 24 89/35 (53) 95 03/30/20 06:30 80 25 99/52 (68) 96 03/30/20 06:15 80 24 103/48 (66) 96 03/30/20 06:00 99/45 03/30/20 06:00 80 24 99/45 (63) 95 03/30/20 05:45 82 24 97/47 (64) 95 03/30/20 05:30 81 24 101/41 (61) 95 03/30/20 05:15 83 24 101/45 (63) 93 03/30/20 05:07 97/43 03/30/20 05:00 83 24 97/43 (61) 93 03/30/20 04:45 84 24 84/37 (53) 91 03/30/20 04:30 82 24 85/42 (56) 92 03/30/20 04:30 84/37 03/30/20 04:26 82 24 92/41 (58) 92 03/30/20 04:15 80 24 86/39 (55) 92 03/30/20 04:00 Mechanical Ventilator Mechanical Ventilator 03/30/20 04:00 86/39 03/30/20 04:00 98.4 80 24 89/36 (53) 93 03/30/20 04:00 60 03/30/20 03:49 78 24 93/39 (57) 93 03/30/20 03:45 78 24 87/39 (55) 94 03/30/20 03:34 76 03/30/20 03:30 79 24 88/41 (57) 92 03/30/20 03:29 79 24 60 03/30/20 03:15 79 24 100/42 (61) 94 03/30/20 03:00 100/42 03/30/20 03:00 78 24 100/24 (49) 94 03/30/20 02:45 81 27 97/32 (53) 90 03/30/20 02:30 79 24 112/45 (67) 98 03/30/20 02:15 79 24 103/53 (70) 98 03/30/20 02:00 103/53 03/30/20 02:00 80 24 106/44 (64) 98 03/30/20 01:45 80 24 103/39 (60) 98 03/30/20 01:30 81 24 102/36 (58) 96 03/30/20 01:25 107/51 03/30/20 01:15 81 24 107/51 (69) 97 03/30/20 01:00 81 24 104/40 (61) 97 03/30/20 01:00 107/51 03/30/20 00:45 82 24 101/46 (64) 96 03/30/20 00:30 81 24 98/42 (60) 95 03/30/20 00:15 78 24 96/46 (63) 96 03/30/20 00:00 Mechanical Ventilator Mechanical Ventilator 03/30/20 00:00 96/46 03/30/20 00:00 97.6 79 24 102/42 (62) 96 03/29/20 23:45 78 24 111/46 (67) 97 03/29/20 23:30 78 24 112/39 (63) 98 03/29/20 23:23 78 03/29/20 23:15 76 24 116/38 (64) 98 03/29/20 23:06 78 24 60 03/29/20 23:00 76 24 116/46 (69) 98 03/29/20 23:00 116/38 03/29/20 22:45 77 24 113/57 (75) 98 03/29/20 22:30 73 24 110/50 (70) 98 03/29/20 22:15 84 24 120/50 (73) 98 03/29/20 22:00 120/50 03/29/20 22:00 84 24 117/40 (65) 98 03/29/20 21:45 85 24 113/34 (60) 97 03/29/20 21:30 85 24 116/47 (70) 96 03/29/20 21:29 113/45 03/29/20 21:15 84 24 113/45 (67) 96 03/29/20 21:00 84 24 112/50 (70) 96 03/29/20 21:00 113/45 03/29/20 20:45 83 24 110/53 (72) 96 03/29/20 20:30 83 24 110/54 (72) 97 03/29/20 20:15 83 24 125/50 (75) 97 03/29/20 20:00 97.7 83 24 131/50 (77) 98 03/29/20 20:00 Mechanical Ventilator Mechanical Ventilator 5/13/20 20:00 125/50 03/29/20 20:00 60 03/29/20 19:45 83 24 129/58 (81) 97 03/29/20 19:39 84 03/29/20 19:30 84 24 132/50 (77) 97 03/29/20 19:15 84 24 130/49 (76) 97 03/29/20 19:08 84 24 60 03/29/20 19:00 128/48 03/29/20 19:00 84 24 128/48 (74) 96 03/29/20 18:30 84 24 120/43 (68) 96 03/29/20 18:19 112/51 03/29/20 18:00 99/46 03/29/20 18:00 83 24 99/46 (63) 95 03/29/20 17:00 83 24 134/49 (77) 96 03/29/20 17:00 134/49 03/29/20 16:15 86 24 107/45 (65) 93 Intake and Output 03/30/20 03/31/20 19:00 07:00 Intake Total 2701.40009 ml 2366.1520 ml Output Total 530 ml 735 ml Balance 2171.32796 ml 1631.1520 ml Free Water 300 ml 300 ml IV Total 1801.05447 ml 1466.1520 ml Tube Feeding 600 ml 600 ml Output Urine Total 530 ml 735 ml # Bowel Movements 2 Labs Test 03/29/20 04:05 03/29/20 08:05 03/29/20 12:30 03/30/20 09:10 White Blood Count 26.4 K/UL (4.8-10.8) 26.8 K/UL (4.8-10.8) Red Blood Count 2.85 M/UL (4.20-5.40) 2.62 M/UL (4.20-5.40) Hemoglobin 10.1 G/DL (12.0-16.0) 9.3 G/DL (12.0-16.0) Hematocrit 31.7 % (37.0-47.0) 28.2 % (37.0-47.0) Mean Corpuscular Volume 111 FL (80-99) 107 FL (80-99) Mean Corpuscular Hemoglobin 35.3 PG (27.0-31.0) 35.4 PG (27.0-31.0) Mean Corpuscular Hemoglobin Concent 31.7 G/DL (32.0-36.0) 33.0 G/DL (32.0-36.0) Red Cell Distribution Width 22.1 % (11.6-14.8) 21.6 % (11.6-14.8) Platelet Count 135 K/UL (150-450) 68 K/UL (150-450) Mean Platelet Volume 7.5 FL (6.5-10.1) 8.6 FL (6.5-10.1) Neutrophils (%) (Auto) % (45.0-75.0) % (45.0-75.0) Lymphocytes (%) (Auto) % (20.0-45.0) % (20.0-45.0) Monocytes (%) (Auto) % (1.0-10.0) % (1.0-10.0) Eosinophils (%) (Auto) % (0.0-3.0) % (0.0-3.0) Basophils (%) (Auto) % (0.0-2.0) % (0.0-2.0) Differential Total Cells Counted 100 100 Neutrophils % (Manual) 88 % (45-75) 81 % (45-75) Lymphocytes % (Manual) 3 % (20-45) 10 % (20-45) Monocytes % (Manual) 9 % (1-10) 5 % (1-10) Eosinophils % (Manual) 0 % (0-3) 2 % (0-3) Basophils % (Manual) 0 % (0-2) 0 % (0-2) Band Neutrophils 0 % (0-8) 2 % (0-8) Platelet Estimate Decreased Decreased Platelet Morphology Normal Normal Hypochromasia 1+ 2+ Anisocytosis 3+ 3+ Macrocytosis 2+ 1+ Sodium Level 154 MMOL/L (136-145) 142 MMOL/L (136-145) Potassium Level 4.4 MMOL/L (3.5-5.1) 5.0 MMOL/L (3.5-5.1) Chloride Level 110 MMOL/L (98-107) 103 MMOL/L (98-107) Carbon Dioxide Level 43 MMOL/L (21-32) 40 MMOL/L (21-32) Anion Gap 0 mmol/L (5-15) -1 mmol/L (5-15) Blood Urea Nitrogen 48 mg/dL (7-18) 53 mg/dL (7-18) Creatinine 0.9 MG/DL (0.55-1.30) 0.9 MG/DL (0.55-1.30) Estimat Glomerular Filtration Rate > 60 mL/min (>60) > 60 mL/min (>60) Glucose Level 402 MG/DL (74-106) 171 MG/DL (74-106) Uric Acid 5.9 MG/DL (2.6-7.2) Calcium Level 9.6 MG/DL (8.5-10.1) 9.3 MG/DL (8.5-10.1) Phosphorus Level 3.4 MG/DL (2.5-4.9) 4.2 MG/DL (2.5-4.9) Magnesium Level 2.7 MG/DL (1.8-2.4) 2.6 MG/DL (1.8-2.4) Total Bilirubin 1.8 MG/DL (0.2-1.0) 1.7 MG/DL (0.2-1.0) Direct Bilirubin 1.1 MG/DL (0.0-0.3) 0.9 MG/DL (0.0-0.3) Aspartate Amino Transf (AST/SGOT) 356 U/L (15-37) 535 U/L (15-37) Alanine Aminotransferase (ALT/SGPT) 269 U/L (12-78) 281 U/L (12-78) Alkaline Phosphatase 341 U/L (46-116) 343 U/L (46-116) Total Protein 6.6 G/DL (6.4-8.2) 5.9 G/DL (6.4-8.2) Albumin 2.2 G/DL (3.4-5.0) 1.9 G/DL (3.4-5.0) Globulin 4.4 g/dL 4.0 g/dL Albumin/Globulin Ratio 0.5 (1.0-2.7) 0.5 (1.0-2.7) Arterial Blood pH 7.371 (7.350-7.450) Arterial Blood Partial Pressure CO2 73.5 mmHg (35.0-45.0) Arterial Blood Partial Pressure O2 64.5 mmHg (75.0-100.0) Arterial Blood HCO3 41.6 mmol/L (22.0-26.0) Arterial Blood Oxygen Saturation 87.9 % (95-100) Arterial Blood Base Excess 14 (-2-2) [place] Test N/a Urine Color Yellow Urine Appearance Cloudy Urine pH 5 (4.5-8.0) Urine Specific [place] 1.010 (1.005-1.035) Urine Protein Negative (NEGATIVE) Urine Glucose (UA) Negative (NEGATIVE) Urine Ketones Negative (NEGATIVE) Urine Blood 1+ (NEGATIVE) Urine Nitrite Negative (NEGATIVE) Urine Bilirubin Negative (NEGATIVE) Urine Urobilinogen Normal MG/DL (0.0-1.0) Urine Leukocyte Esterase 2+ (NEGATIVE) Urine RBC 0-2 /HPF (0 - 2) Urine WBC 0-2 /HPF (0 - 2) Urine Squamous Epithelial Cells Few /LPF (NONE/OCC) Urine Bacteria Occasional /HPF (NONE) Urine Yeast Many /HPF (NONE) Nucleated Red Blood Cells 3 /100 WBC Spherocytes 1+ Test 03/31/20 07:55 White Blood Count 26.7 K/UL (4.8-10.8) Red Blood Count 2.54 M/UL (4.20-5.40) Hemoglobin 9.1 G/DL (12.0-16.0) Hematocrit 27.0 % (37.0-47.0) Mean Corpuscular Volume 106 FL (80-99) Mean Corpuscular Hemoglobin 35.9 PG (27.0-31.0) Mean Corpuscular Hemoglobin Concent 33.8 G/DL (32.0-36.0) Red Cell Distribution Width 22.8 % (11.6-14.8) Platelet Count 115 K/UL (150-450) Mean Platelet Volume 8.8 FL (6.5-10.1) Neutrophils (%) (Auto) % (45.0-75.0) Lymphocytes (%) (Auto) % (20.0-45.0) Monocytes (%) (Auto) % (1.0-10.0) Eosinophils (%) (Auto) % (0.0-3.0) Basophils (%) (Auto) % (0.0-2.0) Differential Total Cells Counted 100 Neutrophils % (Manual) 88 % (45-75) Lymphocytes % (Manual) 2 % (20-45) Monocytes % (Manual) 7 % (1-10) Eosinophils % (Manual) 3 % (0-3) Basophils % (Manual) 0 % (0-2) Band Neutrophils 0 % (0-8) Platelet Estimate Decreased Platelet Morphology Normal Polychromasia 1+ Hypochromasia 1+ Anisocytosis 2+ Macrocytosis 1+ Sodium Level 136 MMOL/L (136-145) Potassium Level 5.3 MMOL/L (3.5-5.1) Chloride Level 98 MMOL/L (98-107) Carbon Dioxide Level 37 MMOL/L (21-32) Anion Gap 1 mmol/L (5-15) Blood Urea Nitrogen 59 mg/dL (7-18) Creatinine 0.8 MG/DL (0.55-1.30) Estimat Glomerular Filtration Rate > 60 mL/min (>60) Glucose Level 151 MG/DL (74-106) Uric Acid 6.5 MG/DL (2.6-7.2) Calcium Level 9.1 MG/DL (8.5-10.1) Phosphorus Level 4.5 MG/DL (2.5-4.9) Magnesium Level 2.6 MG/DL (1.8-2.4) Total Bilirubin 1.7 MG/DL (0.2-1.0) Direct Bilirubin 1.2 MG/DL (0.0-0.3) Aspartate Amino Transf (AST/SGOT) 654 U/L (15-37) Alanine Aminotransferase (ALT/SGPT) 310 U/L (12-78) Alkaline Phosphatase 391 U/L (46-116) Ammonia 106 umol/L (11-32) Total Creatine Kinase 81 U/L (26-308) C-Reactive Protein, Quantitative 1.7 mg/dL (0.00-0.90) Total Protein 5.8 G/DL (6.4-8.2) Albumin 2.1 G/DL (3.4-5.0) Globulin 3.7 g/dL Albumin/Globulin Ratio 0.6 (1.0-2.7) Height (Feet): 5 Height (Inches): 1.00 Weight (Pounds): 223 Objective Physical Exam: Vitals: reviewed General: NAD HEENT: nc, at++ngt Neck: supple Chest: crackles b/l, mech breath sounds ++intubated Cardiovascular: RRR, no s3, s4 EXT ++ Significant edema and erythema bilateral lower extremity, patient also has blistering on both feet Neurologic: sedated Skin: other - As above Brett Mcclain MD March 31, 2020 16:05
--- NOTE | 2020-03-31 16:48 | General Progress Note ---
Assessment/Plan Problem List: (1) Cellulitis ICD Codes: L03.90 - Cellulitis, unspecified SNOMED: [id number] Qualifiers: Qualified Codes: L03.119 - Cellulitis of unspecified part of limb Status: progressing, unchanged Assessment/Plan: had extensive and long conversation w daughter re code status and end of life and futile care also reminded dr luis to see pt for consult critical condiation dialeted pupil intubated on pressors told daughter how sick she is and her condition is critical and terminal and to consider changing to dnr.for now she wanted to continue doing everything also asked dr morris and dr vail to see in case dr luis unable to see \hypernatrmia arf resp failure renal failure covid positvie sepsis metabolic conctraction cellulitis lower extremity persistent leukocytosis elev LFT shock liver sepsis anemia. h/h is stable cirrhosis poor prognosis Subjective ROS Limited/Unobtainable: Yes Allergies: Coded Allergies: No Known Allergies (Unverified , 02/29/20) Objective Last 24 Hour Vital Signs Date Time Temp Pulse Resp B/P (MAP) Pulse Ox O2 Delivery O2 Flow Rate FiO2 03/31/20 15:19 80 24 100 03/31/20 15:14 110/46 03/31/20 12:01 100 03/31/20 12:00 Mechanical Ventilator Mechanical Ventilator 03/31/20 12:00 97.9 79 24 111/59 (76) 92 03/31/20 11:30 80 24 116/48 (70) 90 03/31/20 11:26 111/57 03/31/20 11:19 80 24 100 03/31/20 11:00 80 24 114/64 (81) 91 03/31/20 10:30 81 24 109/55 (73) 92 03/31/20 10:00 81 24 106/46 (66) 93 03/31/20 09:30 82 24 97/43 (61) 93 03/31/20 09:00 80 24 89/39 (56) 92 03/31/20 08:30 81 24 87/38 (54) 91 03/31/20 08:07 90/42 03/31/20 08:00 79 03/31/20 08:00 98.2 79 24 90/42 (58) 94 03/31/20 08:00 100 03/31/20 08:00 Mechanical Ventilator Mechanical Ventilator 03/31/20 07:30 80 24 100 03/31/20 07:30 80 24 100/40 (60) 95 03/31/20 07:00 101/47 03/31/20 07:00 80 24 101/47 (65) 95 03/31/20 06:45 81 24 104/48 (66) 95 03/31/20 06:30 81 24 103/52 (69) 95 03/31/20 06:15 81 24 100/46 (64) 93 03/31/20 06:00 100/46 03/31/20 06:00 82 23 94/45 (61) 93 03/31/20 05:45 82 24 95/47 (63) 93 03/31/20 05:30 81 24 88/40 (56) 93 03/31/20 05:15 81 24 96/45 (62) 95 03/31/20 05:00 81 24 97/42 (60) 95 03/31/20 04:45 81 24 80/45 (57) 94 03/31/20 04:37 106/51 03/31/20 04:37 106/51 03/31/20 04:30 82 24 109/46 (67) 96 03/31/20 04:15 82 24 106/51 (69) 96 03/31/20 04:00 100 03/31/20 04:00 106/51 03/31/20 04:00 Mechanical Ventilator Mechanical Ventilator 03/31/20 04:00 98.2 82 25 105/50 (68) 95 03/31/20 03:45 82 25 100/45 (63) 95 03/31/20 03:30 82 03/31/20 03:30 82 24 97/43 (61) 94 03/31/20 03:19 82 24 100 03/31/20 03:15 82 24 94/45 (61) 94 03/31/20 03:00 94/45 03/31/20 03:00 81 24 100/48 (65) 94 03/31/20 02:45 81 24 102/48 (66) 94 03/31/20 02:30 82 24 106/51 (69) 95 03/31/20 02:15 82 24 112/60 (77) 95 03/31/20 02:00 112/60 03/31/20 02:00 81 24 101/48 (65) 92 03/31/20 01:45 83 24 95/65 (75) 95 03/31/20 01:30 81 24 112/54 (73) 99 03/31/20 01:15 81 24 110/55 (73) 98 03/31/20 01:10 111/58 03/31/20 01:00 112/60 03/31/20 01:00 81 24 111/58 (75) 98 03/31/20 00:45 81 24 108/55 (72) 98 03/31/20 00:30 78 24 104/50 (68) 98 03/31/20 00:15 82 24 113/53 (73) 98 03/31/20 00:00 100 03/31/20 00:00 113/53 03/31/20 00:00 Mechanical Ventilator Mechanical Ventilator 03/31/20 00:00 98.2 83 24 118/56 (76) 98 03/30/20 23:45 83 24 115/59 (77) 98 03/30/20 23:30 84 24 119/52 (74) 99 03/30/20 23:28 84 03/30/20 23:15 83 24 116/50 (72) 99 03/30/20 23:12 84 24 100 03/30/20 23:00 116/50 03/30/20 23:00 83 24 112/56 (74) 98 03/30/20 22:45 84 24 115/51 (72) 98 03/30/20 22:30 84 24 120/49 (72) 99 03/30/20 22:15 84 24 126/62 (83) 99 03/30/20 22:00 126/62 03/30/20 22:00 83 23 122/53 (76) 97 03/30/20 21:53 113/55 03/30/20 21:45 83 24 113/55 (74) 98 03/30/20 21:30 84 24 111/51 (71) 98 03/30/20 21:15 85 24 109/58 (75) 98 03/30/20 21:00 86 24 119/58 (78) 97 03/30/20 21:00 109/58 03/30/20 20:45 85 24 110/55 (73) 96 5/14/20 20:30 87 24 108/55 (72) 95 03/30/20 20:15 87 24 100/42 (61) 90 03/30/20 20:00 Mechanical Ventilator Mechanical Ventilator 03/30/20 20:00 98.3 81 24 109/81 (90) 95 03/30/20 20:00 100/58 03/30/20 20:00 75 03/30/20 19:31 81 03/30/20 19:30 81 24 115/56 (75) 94 03/30/20 19:22 80 24 95 Mechanical Ventilator 75 03/30/20 19:22 80 24 75 03/30/20 19:00 80 24 109/58 (75) 95 03/30/20 18:30 80 24 114/57 (76) 95 03/30/20 18:14 125/60 03/30/20 18:00 80 24 125/60 (81) 96 03/30/20 17:30 80 24 127/54 (78) 96 03/30/20 17:00 80 24 130/51 (77) 96 Intake and Output 03/30/20 03/31/20 19:00 07:00 Intake Total 2701.04470 ml 2366.1520 ml Output Total 530 ml 735 ml Balance 2171.65909 ml 1631.1520 ml Free Water 300 ml 300 ml IV Total 1801.46453 ml 1466.1520 ml Tube Feeding 600 ml 600 ml Output Urine Total 530 ml 735 ml # Bowel Movements 2 Laboratory Tests 03/31/20 07:55: White Blood Count 26.7*H, Red Blood Count 2.54L, Hemoglobin 9.1L, Hematocrit 27.0L, Mean Corpuscular Volume 106H, Mean Corpuscular Hemoglobin 35.9H, Mean Corpuscular Hemoglobin Concent 33.8, Red Cell Distribution Width 22.8H, Platelet Count 115#L, Mean Platelet Volume 8.8, Neutrophils (%) (Auto) , Lymphocytes (%) (Auto) , Monocytes (%) (Auto) , Eosinophils (%) (Auto) , Basophils (%) (Auto) , Differential Total Cells Counted 100, Neutrophils % ( Manual) 88H, Lymphocytes % (Manual) 2L, Monocytes % (Manual) 7, Eosinophils % ( Manual) 3, Basophils % (Manual) 0, Band Neutrophils 0, Platelet Estimate DecreasedL, Platelet Morphology Normal, Polychromasia 1+, Hypochromasia 1+, Anisocytosis 2+, Macrocytosis 1+, Sodium Level 136, Potassium Level 5.3H, Chloride Level 98, Carbon Dioxide Level 37H, Anion Gap 1L, Blood Urea Nitrogen 59H, Creatinine 0.8, Estimat Glomerular Filtration Rate > 60, Glucose Level 151H , Uric Acid 6.5, Calcium Level 9.1, Phosphorus Level 4.5, Magnesium Level 2.6H, Total Bilirubin 1.7H, Direct Bilirubin 1.2H, Aspartate Amino Transf (AST/SGOT) 654H, Alanine Aminotransferase (ALT/SGPT) 310H, Alkaline Phosphatase 391H, Ammonia 106H, Total Creatine Kinase 81, C-Reactive Protein, Quantitative 1.7H, Total Protein 5.8L, Albumin 2.1L, Globulin 3.7, Albumin/Globulin Ratio 0.6L Height (Feet): 5 Height (Inches): 1.00 Weight (Pounds): 223 Celso Moreno MD March 31, 2020 16:48
[2020-03-31] MEDS ORDERED: Lactulose 20gm/30ml UDC ORAL SCH (18:00)
--- NOTE | 2020-03-31 19:28 | Cardiology Progress Note ---
Assessment/Plan Assessment/Plan 1. Acute hypoxic hypercapnic respiratory failure, due to bilateral PNA caused by COVID-19 infection, on steroids. 2. Septic shock with bradycardia, on dopamine gtt and midodrine, keep MAP at 65 mmHg. Normal LV function with LVEF at 60%. 3. Hyponatremia, resolved. 4. Bilateral lower extremity cellulitis with Pseudomonas aeruginosa. 5. Hypernatremia, resolved. 6. HCV infection with liver cirrhosis. Subjective Subjective Sinus rhythm at rate of 81. On dopamine gtt. Objective Last 24 Hour Vital Signs Date Time Temp Pulse Resp B/P (MAP) Pulse Ox O2 Delivery O2 Flow Rate FiO2 03/31/20 19:00 81 26 102/54 (70) 90 03/31/20 18:30 80 24 107/57 (74) 90 03/31/20 18:26 101/51 03/31/20 18:00 79 24 96/47 (63) 83 03/31/20 17:30 79 25 93/49 (64) 86 03/31/20 17:14 100 03/31/20 17:00 78 24 100/59 (73) 89 03/31/20 16:30 80 24 96/54 (68) 89 03/31/20 16:00 Mechanical Ventilator Mechanical Ventilator 03/31/20 16:00 100 03/31/20 16:00 97.5 80 24 113/54 (73) 92 03/31/20 16:00 80 03/31/20 15:30 80 24 106/54 (71) 95 03/31/20 15:19 80 24 100 03/31/20 15:14 110/46 03/31/20 15:00 80 24 110/46 (67) 95 03/31/20 14:30 80 24 111/58 (75) 95 03/31/20 14:00 81 24 114/48 (70) 90 03/31/20 13:30 80 27 111/52 (71) 91 03/31/20 13:00 79 24 113/52 (72) 90 03/31/20 12:55 100 03/31/20 12:30 80 24 110/53 (72) 90 03/31/20 12:01 100 03/31/20 12:00 79 03/31/20 12:00 Mechanical Ventilator Mechanical Ventilator 03/31/20 12:00 97.9 79 24 111/59 (76) 92 03/31/20 11:30 80 24 116/48 (70) 90 03/31/20 11:26 111/57 03/31/20 11:19 80 24 100 03/31/20 11:00 80 24 114/64 (81) 91 03/31/20 10:30 81 24 109/55 (73) 92 03/31/20 10:00 81 24 106/46 (66) 93 03/31/20 09:30 82 24 97/43 (61) 93 03/31/20 09:00 80 24 89/39 (56) 92 03/31/20 08:30 81 24 87/38 (54) 91 03/31/20 08:07 90/42 03/31/20 08:00 79 03/31/20 08:00 98.2 79 24 90/42 (58) 94 03/31/20 08:00 100 03/31/20 08:00 Mechanical Ventilator Mechanical Ventilator 03/31/20 07:30 80 24 100 03/31/20 07:30 80 24 100/40 (60) 95 03/31/20 07:00 101/47 03/31/20 07:00 80 24 101/47 (65) 95 03/31/20 06:45 81 24 104/48 (66) 95 03/31/20 06:30 81 24 103/52 (69) 95 03/31/20 06:15 81 24 100/46 (64) 93 03/31/20 06:00 100/46 03/31/20 06:00 82 23 94/45 (61) 93 03/31/20 05:45 82 24 95/47 (63) 93 03/31/20 05:30 81 24 88/40 (56) 93 03/31/20 05:15 81 24 96/45 (62) 95 03/31/20 05:00 81 24 97/42 (60) 95 03/31/20 04:45 81 24 80/45 (57) 94 03/31/20 04:37 106/51 03/31/20 04:37 106/51 03/31/20 04:30 82 24 109/46 (67) 96 03/31/20 04:15 82 24 106/51 (69) 96 03/31/20 04:00 100 03/31/20 04:00 106/51 03/31/20 04:00 Mechanical Ventilator Mechanical Ventilator 03/31/20 04:00 98.2 82 25 105/50 (68) 95 03/31/20 03:45 82 25 100/45 (63) 95 03/31/20 03:30 82 03/31/20 03:30 82 24 97/43 (61) 94 03/31/20 03:19 82 24 100 03/31/20 03:15 82 24 94/45 (61) 94 03/31/20 03:00 94/45 03/31/20 03:00 81 24 100/48 (65) 94 03/31/20 02:45 81 24 102/48 (66) 94 03/31/20 02:30 82 24 106/51 (69) 95 03/31/20 02:15 82 24 112/60 (77) 95 03/31/20 02:00 112/60 03/31/20 02:00 81 24 101/48 (65) 92 03/31/20 01:45 83 24 95/65 (75) 95 03/31/20 01:30 81 24 112/54 (73) 99 03/31/20 01:15 81 24 110/55 (73) 98 03/31/20 01:10 111/58 03/31/20 01:00 112/60 03/31/20 01:00 81 24 111/58 (75) 98 03/31/20 00:45 81 24 108/55 (72) 98 03/31/20 00:30 78 24 104/50 (68) 98 03/31/20 00:15 82 24 113/53 (73) 98 03/31/20 00:00 100 03/31/20 00:00 113/53 03/31/20 00:00 Mechanical Ventilator Mechanical Ventilator 03/31/20 00:00 98.2 83 24 118/56 (76) 98 03/30/20 23:45 83 24 115/59 (77) 98 03/30/20 23:30 84 24 119/52 (74) 99 03/30/20 23:28 84 03/30/20 23:15 83 24 116/50 (72) 99 03/30/20 23:12 84 24 100 03/30/20 23:00 116/50 03/30/20 23:00 83 24 112/56 (74) 98 03/30/20 22:45 84 24 115/51 (72) 98 03/30/20 22:30 84 24 120/49 (72) 99 03/30/20 22:15 84 24 126/62 (83) 99 03/30/20 22:00 126/62 03/30/20 22:00 83 23 122/53 (76) 97 03/30/20 21:53 113/55 03/30/20 21:45 83 24 113/55 (74) 98 03/30/20 21:30 84 24 111/51 (71) 98 03/30/20 21:15 85 24 109/58 (75) 98 03/30/20 21:00 86 24 119/58 (78) 97 03/30/20 21:00 109/58 03/30/20 20:45 85 24 110/55 (73) 96 03/30/20 20:30 87 24 108/55 (72) 95 03/30/20 20:15 87 24 100/42 (61) 90 03/30/20 20:00 Mechanical Ventilator Mechanical Ventilator 03/30/20 20:00 98.3 81 24 109/81 (90) 95 03/30/20 20:00 100/58 03/30/20 20:00 75 03/30/20 19:31 81 03/30/20 19:30 81 24 115/56 (75) 94 Intake and Output 03/30/20 03/31/20 19:00 07:00 Intake Total 2701.16257 ml 2366.1520 ml Output Total 530 ml 735 ml Balance 2171.89134 ml 1631.1520 ml Free Water 300 ml 300 ml IV Total 1801.69826 ml 1466.1520 ml Tube Feeding 600 ml 600 ml Output Urine Total 530 ml 735 ml # Bowel Movements 2 2D Echo: EF 60%, Mild LVH, Mild MR. RVSP 44 mmHg, Normal LVD Fxn Laboratory Tests Test 03/31/20 07:55 White Blood Count 26.7 K/UL (4.8-10.8) *H Red Blood Count 2.54 M/UL (4.20-5.40) L Hemoglobin 9.1 G/DL (12.0-16.0) L Hematocrit 27.0 % (37.0-47.0) L Mean Corpuscular Volume 106 FL (80-99) H Mean Corpuscular Hemoglobin 35.9 PG (27.0-31.0) H Mean Corpuscular Hemoglobin Concent 33.8 G/DL (32.0-36.0) Red Cell Distribution Width 22.8 % (11.6-14.8) H Platelet Count 115 K/UL (150-450) #L Mean Platelet Volume 8.8 FL (6.5-10.1) Neutrophils (%) (Auto) % (45.0-75.0) Lymphocytes (%) (Auto) % (20.0-45.0) Monocytes (%) (Auto) % (1.0-10.0) Eosinophils (%) (Auto) % (0.0-3.0) Basophils (%) (Auto) % (0.0-2.0) Differential Total Cells Counted 100 Neutrophils % (Manual) 88 % (45-75) H Lymphocytes % (Manual) 2 % (20-45) L Monocytes % (Manual) 7 % (1-10) Eosinophils % (Manual) 3 % (0-3) Basophils % (Manual) 0 % (0-2) Band Neutrophils 0 % (0-8) Platelet Estimate Decreased L Platelet Morphology Normal Polychromasia 1+ Hypochromasia 1+ Anisocytosis 2+ Macrocytosis 1+ Sodium Level 136 MMOL/L (136-145) Potassium Level 5.3 MMOL/L (3.5-5.1) H Chloride Level 98 MMOL/L (98-107) Carbon Dioxide Level 37 MMOL/L (21-32) H Anion Gap 1 mmol/L (5-15) L Blood Urea Nitrogen 59 mg/dL (7-18) H Creatinine 0.8 MG/DL (0.55-1.30) Estimat Glomerular Filtration Rate > 60 mL/min (>60) Glucose Level 151 MG/DL (74-106) H Uric Acid 6.5 MG/DL (2.6-7.2) Calcium Level 9.1 MG/DL (8.5-10.1) Phosphorus Level 4.5 MG/DL (2.5-4.9) Magnesium Level 2.6 MG/DL (1.8-2.4) H Total Bilirubin 1.7 MG/DL (0.2-1.0) H Direct Bilirubin 1.2 MG/DL (0.0-0.3) H Aspartate Amino Transf (AST/SGOT) 654 U/L (15-37) H Alanine Aminotransferase (ALT/SGPT) 310 U/L (12-78) H Alkaline Phosphatase 391 U/L (46-116) H Ammonia 106 umol/L (11-32) H Total Creatine Kinase 81 U/L (26-308) C-Reactive Protein, Quantitative 1.7 mg/dL (0.00-0.90) H Total Protein 5.8 G/DL (6.4-8.2) L Albumin 2.1 G/DL (3.4-5.0) L Globulin 3.7 g/dL Albumin/Globulin Ratio 0.6 (1.0-2.7) L Microbiology Date/Time Source Procedure Growth Status 03/29/20 12:30 Sputum Gram Stain - Final Resulted 03/29/20 12:30 Sputum Culture - Preliminary Gram Negative Bacillus 1 Resulted 03/29/20 12:30 Stool Clostridium difficile Toxin Assay - Final Complete 03/29/20 12:30 Indwelling Cath Urine Culture - Preliminary Yeast Species Resulted Objective HEENT: Atraumatic and normocephalic. Anicteric. Intubated. NECK: JVP cannot be assessed. No carotid bruit. + ETT. CARDIOVASCULAR: Normal S1, S2. Regular rate and rhythm. No murmurs, gallops, or rubs. PMI is at fourth intercostal space at left midclavicular line. LUNGS: Bibasilar crackles. ABDOMEN: Soft, nontender, and nondistended. No hepatosplenomegaly. Positive bowel sounds. EXTREMITIES: A 2+ edema bilaterally associated with erythema with blistering and crust formation of both feet. Berto Gonzalez MD March 31, 2020 19:28
[2020-03-31] MEDS: Dyna-Hex 2% Top Sol 2oz TOPIC SCH (19:58)
[2020-03-31] MEDS: fentaNYL Citrate 1000 MCG in NS 100ml IV SCH (22:30)
[2020-04-01] VITALS (65 sets, daily range): BP systolic 86–134; BP diastolic 36–69
[2020-04-01] MEDS: NovoLOG Insulin Flexpen SUBQ SCH ×10 (01:02→21:28)
[2020-04-01] MEDS: DOPamine 400mg/250ml 250 ML IV SCH ×5 (02:35→18:43)
[2020-04-01] MEDS: Meropenem 1 GM in NS 55 ML IVPB SCH ×3 (05:10→21:00)
[2020-04-01] MEDS: Lactulose 20gm/30ml UDC ORAL SCH ×3 (05:11→20:59)
--- NOTE | 2020-04-01 06:19 | Pulmonolgy Critical Care Note ---
Critical Care - Asmt/Plan Assessment/Plan: Pulmonary CCM Progress Note HPI Patient is a 59 year old woman with significant obesity, admitted with bilateral lower extremity cellulitis, had complained of increased swelling and redness to both of her feet and legs Had elevated BNP on admission, persistent edema since admission, worsening hypoxia. Patient had previous hospitalizations for cellulitis, PMH Hypothyroidism, Obesity, Cirrhosis, Anemia, Anxiety, Cellulitis Remains unresponsive off sedation > 48 hours, pupils dilated, non reactive, not triggering ventilator, CT/Neuro consult pending COVID 19 positive, Pneumonia, Respiratory failure VQ no significant perfusion abnormality, prev LE dupplex negative on one leg Did not tolerating Proning previously Worsening PaO2/FIO2, VC settings adjusted, P 16, FIO2 now 100%%, has elevated PaCO2 Renal following Hypothyroidism, elevated glucose, Endocrine following [facility] previously - Remdesavir requested for when available, [facility] - not available as yet Previously received IL6 inhibitor inititial dose (4mg/Kg - all that was available), subsequent dose pending, on steroids - being weaned 10 mg daily Seen earlier Seen on 03/31/2020 Allergies: No Known Allergies Past Medical History: Obesity, Cirrhosis, Anemia, Anxiety, Cellulitis, Hypothyroidism All Other Systems: negative except mentioned in HPI Physical Exam Vital Signs Noted General Appearance: Obese, no reaction to pain despite no sedation, intubated Head: normocephalic, atraumatic Eyes: pupils dilated and non responsive to light bilaterally ENT: moist MM, no LN Respiratory: Bilateral crackles, bilateral rhonchi, not overbreathing the ventilator Cardiovascular: regular rate, rhythm, HS1, HS2 RRR Gastrointestinal: Obese, soft non tender, ND Musculoskeletal: Mild edema and erythema bilateral lower extremity, patient has crusting on both feet, Neurologic: non responsive, no focal signs noted, no seizures, no response to pain Impression: Covid Pneumonia, s/p IL6 inhibitor, sp Hydroxychloroquine, Ivermectin Worsening hypoxia, worsening PCO2 Bilateral dilated non reactive pupils, patient unresponsive despite no sedation Not triggering ventilator No response to pain Increased WCC - possible secondary to steroids ID following Bilateral Lower Extremity Cellulitis Elevated NPA, severe bilateral edema - improving Cirrhosis, elevated transaminases/ammonia Splenomegaly Anemia Anxiety Hyponatremia Hypothyroidism Plan Neurology Consultation/CT head pending IV Antibiotics per ID On trial of steroids - currently 10 mg daily, being weaned to off, s/p IL6 inhibitor Surgery following for wounds Hematology following for anemia, observing for Neutropenia/thrombocytopenia Renal following for hypernatremia/volume status Endocrine following for Hypothyroidism, on ISS Monitor labs Bronchodilators PPX - SCD AC VC Proning PRN Supplement electrolytes PRN Albuterol PRN MDI [employer] Medications Previously d/w Patients daughter Tri - discussed grave prognosis, possibility of patient having had possible stroke/IC event, suggested DNAR - wants full code Case d/w RN Previously [facility] - Remdesavir ordered, awaiting supply Labs Noted Chest X-Ray: Cardiomegaly, left lower lobe atelectasis versus effusion, worsening infiltrates/congestion Subjective ROS Limited/Unobtainable: No Constitutional: Reports: no symptoms Gastrointestinal/Abdominal: Reports: no symptoms Musculoskeletal: Reports: other - SOB Allergies: Coded Allergies: No Known Allergies (Unverified , 02/29/20) ICU time 50 minutes Critical Care - Objective Last 24 Hour Vital Signs Date Time Temp Pulse Resp B/P (MAP) Pulse Ox O2 Delivery O2 Flow Rate FiO2 04/01/20 06:00 98/58 04/01/20 06:00 80 32 98/43 (61) 93 04/01/20 05:30 80 27 98/53 (68) 93 04/01/20 05:00 80 29 108/44 (65) 95 04/01/20 05:00 108/44 04/01/20 04:30 81 24 111/50 (70) 97 04/01/20 04:00 100 04/01/20 04:00 Mechanical Ventilator Mechanical Ventilator 04/01/20 04:00 98.1 85 29 100/56 (71) 94 04/01/20 04:00 79 04/01/20 04:00 100/56 04/01/20 03:30 79 26 110/56 (74) 93 04/01/20 03:21 78 24 100 04/01/20 03:00 79 25 117/67 (84) 93 04/01/20 03:00 117/67 04/01/20 02:35 119/63 04/01/20 02:34 119/63 04/01/20 02:30 79 27 119/63 (81) 92 04/01/20 02:00 119/64 04/01/20 02:00 78 25 119/64 (82) 93 04/01/20 01:30 77 26 127/60 (82) 96 04/01/20 01:00 124/53 04/01/20 01:00 77 25 124/53 (76) 94 04/01/20 00:30 78 24 125/69 (87) 92 04/01/20 00:00 76 04/01/20 00:00 122/60 04/01/20 00:00 100 04/01/20 00:00 Mechanical Ventilator Mechanical Ventilator 04/01/20 00:00 97.5 77 24 122/60 (80) 90 03/31/20 23:30 76 25 125/66 (85) 91 03/31/20 23:15 89 23 100 03/31/20 23:00 77 25 126/54 (78) 92 03/31/20 23:00 126/54 03/31/20 22:30 77 24 135/64 (87) 90 03/31/20 22:27 142/62 03/31/20 22:00 143/52 03/31/20 22:00 78 24 143/52 (82) 92 03/31/20 21:30 78 25 122/76 (91) 90 03/31/20 21:00 136/82 03/31/20 21:00 79 27 136/82 (100) 88 03/31/20 20:30 81 27 128/66 (86) 90 03/31/20 20:00 98.7 82 25 135/68 (90) 90 03/31/20 20:00 100 03/31/20 20:00 Mechanical Ventilator Mechanical Ventilator 03/31/20 20:00 135/68 03/31/20 20:00 81 03/31/20 19:30 81 24 100 03/31/20 19:30 82 26 112/69 (83) 90 03/31/20 19:00 81 26 102/54 (70) 90 03/31/20 18:30 80 24 107/57 (74) 90 03/31/20 18:26 101/51 03/31/20 18:00 79 24 96/47 (63) 83 03/31/20 17:30 79 25 93/49 (64) 86 03/31/20 17:14 100 03/31/20 17:00 78 24 100/59 (73) 89 03/31/20 16:30 80 24 96/54 (68) 89 03/31/20 16:00 Mechanical Ventilator Mechanical Ventilator 03/31/20 16:00 100 03/31/20 16:00 97.5 80 24 113/54 (73) 92 03/31/20 16:00 80 03/31/20 15:30 80 24 106/54 (71) 95 03/31/20 15:19 80 24 100 03/31/20 15:14 110/46 03/31/20 15:00 80 24 110/46 (67) 95 03/31/20 14:30 80 24 111/58 (75) 95 03/31/20 14:00 81 24 114/48 (70) 90 03/31/20 13:30 80 27 111/52 (71) 91 03/31/20 13:00 79 24 113/52 (72) 90 03/31/20 12:55 100 03/31/20 12:30 80 24 110/53 (72) 90 03/31/20 12:01 100 03/31/20 12:00 79 03/31/20 12:00 Mechanical Ventilator Mechanical Ventilator 03/31/20 12:00 97.9 79 24 111/59 (76) 92 03/31/20 11:30 80 24 116/48 (70) 90 03/31/20 11:26 111/57 03/31/20 11:19 80 24 100 03/31/20 11:00 80 24 114/64 (81) 91 03/31/20 10:30 81 24 109/55 (73) 92 03/31/20 10:00 81 24 106/46 (66) 93 03/31/20 09:30 82 24 97/43 (61) 93 03/31/20 09:00 80 24 89/39 (56) 92 03/31/20 08:30 81 24 87/38 (54) 91 03/31/20 08:07 90/42 03/31/20 08:00 79 03/31/20 08:00 98.2 79 24 90/42 (58) 94 03/31/20 08:00 100 03/31/20 08:00 Mechanical Ventilator Mechanical Ventilator 03/31/20 07:30 80 24 100 03/31/20 07:30 80 24 100/40 (60) 95 03/31/20 07:00 101/47 03/31/20 07:00 80 24 101/47 (65) 95 03/31/20 06:45 81 24 104/48 (66) 95 03/31/20 06:30 81 24 103/52 (69) 95 Micro: Microbiology Date/Time Source Procedure Growth Status 03/29/20 12:30 Sputum Gram Stain - Final Complete 03/29/20 12:30 Sputum Culture - Final Pseudomonas Aeruginosa Complete 03/29/20 12:30 Stool Clostridium difficile Toxin Assay - Final Complete 03/29/20 12:30 Indwelling Cath Urine Culture - Final Nidhi Albicans Complete Accucheck: 94 Critical Care - Subjective ROS Limited/Unobtainable: Yes Condition: critical IV Access: PICC FI02: 100 Vent Support Breath Rate: 24 Vent Support Mode: AC Vent Tidal Volume: 400 Sputum Amount: Small PEEP: 16.0 PIP: 32 Tube Feeding Amount: 50 I&O: Intake and Output 03/31/20 04/01/20 19:00 07:00 Intake Total 2335.5222 ml 1627.876 ml Output Total 710 ml 930 ml Balance 1625.5222 ml 697.876 ml Free Water 300 ml IV Total 1435.5222 ml 1077.876 ml Tube Feeding 600 ml 550 ml Output Urine Total 710 ml 930 ml # Bowel Movements 1 ET-Tube: 7.5 ET Position: 21 Doron Carrillo MD April 01, 2020 06:19
--- NOTE | 2020-04-01 07:14 | General Progress Note ---
Assessment/Plan Status: progressing, unchanged Assessment/Plan: macrocytic anemia elevated LFTS cirrhosis cellulitis elevated Ammonia levels respiratory distress>>> now failure COVID positive pna NGTF abd us>> reordered>>>>pending Xifaxan and lactulose monitor ammonia level fu stool ob>>>neg GI procedures if needed abx per id hepatitis panel>>>>>positive for hep C>>> needs out patient fu poor prognosis will fu Subjective ROS Limited/Unobtainable: No Allergies: Coded Allergies: No Known Allergies (Unverified , 02/29/20) Objective Last 24 Hour Vital Signs Date Time Temp Pulse Resp B/P (MAP) Pulse Ox O2 Delivery O2 Flow Rate FiO2 04/01/20 06:33 98/46 04/01/20 06:30 81 35 105/47 (66) 92 04/01/20 06:00 98/58 04/01/20 06:00 80 32 98/43 (61) 93 04/01/20 05:30 80 27 98/53 (68) 93 04/01/20 05:00 80 29 108/44 (65) 95 04/01/20 05:00 108/44 04/01/20 04:30 81 24 111/50 (70) 97 04/01/20 04:00 100 04/01/20 04:00 Mechanical Ventilator Mechanical Ventilator 04/01/20 04:00 98.1 85 29 100/56 (71) 94 04/01/20 04:00 79 04/01/20 04:00 100/56 04/01/20 03:30 79 26 110/56 (74) 93 04/01/20 03:21 78 24 100 04/01/20 03:00 79 25 117/67 (84) 93 04/01/20 03:00 117/67 04/01/20 02:35 119/63 04/01/20 02:34 119/63 04/01/20 02:30 79 27 119/63 (81) 92 04/01/20 02:00 119/64 04/01/20 02:00 78 25 119/64 (82) 93 04/01/20 01:30 77 26 127/60 (82) 96 04/01/20 01:00 124/53 04/01/20 01:00 77 25 124/53 (76) 94 04/01/20 00:30 78 24 125/69 (87) 92 04/01/20 00:00 76 04/01/20 00:00 122/60 04/01/20 00:00 100 04/01/20 00:00 Mechanical Ventilator Mechanical Ventilator 04/01/20 00:00 97.5 77 24 122/60 (80) 90 03/31/20 23:30 76 25 125/66 (85) 91 03/31/20 23:15 89 23 100 03/31/20 23:00 77 25 126/54 (78) 92 03/31/20 23:00 126/54 03/31/20 22:30 77 24 135/64 (87) 90 03/31/20 22:27 142/62 03/31/20 22:00 143/52 03/31/20 22:00 78 24 143/52 (82) 92 03/31/20 21:30 78 25 122/76 (91) 90 03/31/20 21:00 136/82 03/31/20 21:00 79 27 136/82 (100) 88 03/31/20 20:30 81 27 128/66 (86) 90 03/31/20 20:00 98.7 82 25 135/68 (90) 90 03/31/20 20:00 100 03/31/20 20:00 Mechanical Ventilator Mechanical Ventilator 03/31/20 20:00 135/68 03/31/20 20:00 81 03/31/20 19:30 81 24 100 03/31/20 19:30 82 26 112/69 (83) 90 03/31/20 19:00 81 26 102/54 (70) 90 03/31/20 18:30 80 24 107/57 (74) 90 03/31/20 18:26 101/51 03/31/20 18:00 79 24 96/47 (63) 83 03/31/20 17:30 79 25 93/49 (64) 86 03/31/20 17:14 100 03/31/20 17:00 78 24 100/59 (73) 89 03/31/20 16:30 80 24 96/54 (68) 89 03/31/20 16:00 Mechanical Ventilator Mechanical Ventilator 03/31/20 16:00 100 03/31/20 16:00 97.5 80 24 113/54 (73) 92 03/31/20 16:00 80 03/31/20 15:30 80 24 106/54 (71) 95 03/31/20 15:19 80 24 100 03/31/20 15:14 110/46 03/31/20 15:00 80 24 110/46 (67) 95 03/31/20 14:30 80 24 111/58 (75) 95 03/31/20 14:00 81 24 114/48 (70) 90 03/31/20 13:30 80 27 111/52 (71) 91 03/31/20 13:00 79 24 113/52 (72) 90 03/31/20 12:55 100 03/31/20 12:30 80 24 110/53 (72) 90 03/31/20 12:01 100 03/31/20 12:00 79 03/31/20 12:00 Mechanical Ventilator Mechanical Ventilator 03/31/20 12:00 97.9 79 24 111/59 (76) 92 03/31/20 11:30 80 24 116/48 (70) 90 03/31/20 11:26 111/57 03/31/20 11:19 80 24 100 03/31/20 11:00 80 24 114/64 (81) 91 03/31/20 10:30 81 24 109/55 (73) 92 03/31/20 10:00 81 24 106/46 (66) 93 03/31/20 09:30 82 24 97/43 (61) 93 03/31/20 09:00 80 24 89/39 (56) 92 03/31/20 08:30 81 24 87/38 (54) 91 03/31/20 08:07 90/42 03/31/20 08:00 79 03/31/20 08:00 98.2 79 24 90/42 (58) 94 03/31/20 08:00 100 03/31/20 08:00 Mechanical Ventilator Mechanical Ventilator 03/31/20 07:30 80 24 100 03/31/20 07:30 80 24 100/40 (60) 95 Intake and Output 03/31/20 04/01/20 19:00 07:00 Intake Total 2335.5222 ml 1813.226 ml Output Total 710 ml 930 ml Balance 1625.5222 ml 883.226 ml Free Water 300 ml IV Total 1435.5222 ml 1263.226 ml Tube Feeding 600 ml 550 ml Output Urine Total 710 ml 930 ml # Bowel Movements 1 Laboratory Tests 03/31/20 07:55: White Blood Count 26.7*H, Red Blood Count 2.54L, Hemoglobin 9.1L, Hematocrit 27.0L, Mean Corpuscular Volume 106H, Mean Corpuscular Hemoglobin 35.9H, Mean Corpuscular Hemoglobin Concent 33.8, Red Cell Distribution Width 22.8H, Platelet Count 115#L, Mean Platelet Volume 8.8, Neutrophils (%) (Auto) , Lymphocytes (%) (Auto) , Monocytes (%) (Auto) , Eosinophils (%) (Auto) , Basophils (%) (Auto) , Differential Total Cells Counted 100, Neutrophils % ( Manual) 88H, Lymphocytes % (Manual) 2L, Monocytes % (Manual) 7, Eosinophils % ( Manual) 3, Basophils % (Manual) 0, Band Neutrophils 0, Platelet Estimate DecreasedL, Platelet Morphology Normal, Polychromasia 1+, Hypochromasia 1+, Anisocytosis 2+, Macrocytosis 1+, Sodium Level 136, Potassium Level 5.3H, Chloride Level 98, Carbon Dioxide Level 37H, Anion Gap 1L, Blood Urea Nitrogen 59H, Creatinine 0.8, Estimat Glomerular Filtration Rate > 60, Glucose Level 151H , Uric Acid 6.5, Calcium Level 9.1, Phosphorus Level 4.5, Magnesium Level 2.6H, Total Bilirubin 1.7H, Direct Bilirubin 1.2H, Aspartate Amino Transf (AST/SGOT) 654H, Alanine Aminotransferase (ALT/SGPT) 310H, Alkaline Phosphatase 391H, Ammonia 106H, Total Creatine Kinase 81, C-Reactive Protein, Quantitative 1.7H, Total Protein 5.8L, Albumin 2.1L, Globulin 3.7, Albumin/Globulin Ratio 0.6L 03/31/20 18:30: Arterial Blood pH 7.496H, Arterial Blood Partial Pressure CO2 44.9, Arterial Blood Partial Pressure O2 97.1, Arterial Blood HCO3 33.9H, Arterial Blood Oxygen Saturation 97.6, Arterial Blood Base Excess 9.7*H, Joaquin Test Positive Height (Feet): 5 Height (Inches): 1.00 Weight (Pounds): 225 General Appearance: lethargic EENT: normal ENT inspection Neck: supple Cardiovascular: tachycardia Respiratory/Chest: decreased breath sounds Abdomen: soft, hypoactive bowel sounds Extremities: non-tender Tam Spicer MD April 01, 2020 07:13
[2020-04-01 08:33] LABS: HEMATOCRIT 27.2 % (37.0-47.0); HEMOGLOBIN 9.2 G/DL (12.0-16.0); MEAN CORPUSCULAR VOLUME 106 FL (80-99); PLATELET COUNT 116 K/UL (150-450); RED BLOOD COUNT 2.58 M/UL (4.20-5.40); RED CELL DISTRIBUTION WIDTH 23.1 % (11.6-14.8)
[2020-04-01 08:37] LABS: WHITE BLOOD COUNT 23.1 K/UL (4.8-10.8)
[2020-04-01] MEDS: Solu-MEDROL 40mg Inj IVP SCH (08:40)
[2020-04-01] MEDS: Midodrine 10mg tab NG SCH ×3 (08:41→17:20)
[2020-04-01] MEDS: Fluconazole 100mg tab NG SCH (08:41)
[2020-04-01 08:51] LABS: CREATINE KINASE 127 U/L (26-308); GAMMA GLUTAMYL TRANSPEPTIDASE 746 U/L (5-85); PHOSPHORUS 5.2 MG/DL (2.5-4.9)
[2020-04-01 08:53] LABS: AMMONIA 104 umol/L (11-32)
[2020-04-01 08:57] LABS: ALANINE AMINOTRANSFERASE 314 U/L (12-78); ALBUMIN 2.1 G/DL (3.4-5.0); ALBUMIN/GLOBULIN RATIO 0.5 (1.0-2.7); ALKALINE PHOSPHATASE 408 U/L (46-116); ANION GAP -1 mmol/L (5-15); ASPARTATE AMINO TRANSFERASE 744 U/L (15-37); BILIRUBIN,TOTAL 1.6 MG/DL (0.2-1.0); BLOOD UREA NITROGEN 65 mg/dL (7-18); CARBON DIOXIDE 39 MMOL/L (21-32); CHLORIDE 94 MMOL/L (98-107); CREATININE 0.8 MG/DL (0.55-1.30); POTASSIUM 5.7 MMOL/L (3.5-5.1); SODIUM 132 MMOL/L (136-145)
[2020-04-01] MEDS: Levemir Flexpen SUBQ SCH (09:00)
[2020-04-01 09:14] LABS: BILIRUBIN,DIRECT 0.8 MG/DL (0.0-0.3)
--- NOTE | 2020-04-01 12:11 | Nephrology Progress Note ---
Assessment/Plan Problem List: (1) Respiratory failure with hypoxia (2) Electrolyte imbalance Assessment: Hyponatremia resolved -hyperkalemia resolved (3) COVID-19 (4) Cellulitis (5) Hypothyroid Assessment Hyponatremia. Serum sodium started drifting down from March 16. Hyperkalemia. Septic shock. Acute respiratory failure. Respiratory failure and COVID pneumonia. History of cirrhosis/splenomegaly Anemia Bilateral lower extremity cellulitis Plan April 01: Patient became hypoglycemic so long-acting insulin is held Potassium is 5.7 so albumin and Lasix in addition to Kayexalate is ordered Increase D5W to 100 cc an hour Blood sugar management per Endo Discussed with DAO Gabriel EEG ordered results pending Overall prognosis poor March 31: Increase lactulose dose 1 dose of Kayexalate Continue to monitor liver enzymes Patient unresponsive despite discontinuation of all mind altering medications Neuro eval? March 30 Electrolytes and bicarb improved We will cut down D5W IV fluid Blood sugar better controlled Liver enzymes still remains elevated Discussed with DAO March 29: Worsening leukocytosis Serum sodium lowering Blood sugar still elevated need insulin adjustment Continue to monitor electrolytes and renal parameters Continue per pulmonary Discussed with DAO Sarkar March 28: Serum sodium down to 160 Continue with D5W Continue per pulmonary March 27: Serum sodium vahe Patient retaining CO2 Will start D5W IV fluid Hold Diamox for now until further comments from fur mixer Continue to monitor electrolytes Midodrine dose increased March 26: Remains unstable. Lasix and potassium chloride discontinued. IV Diamox initiated. ABG noted. Midodrine initiated. Continue per pulmonary and ID. Statins discontinued due to elevated liver enzymes. Continue to monitor electrolytes and renal parameters and ABG. Patient remains full code. 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 per ripening room attendant Taper steroids's deferred to fur mixer Urine sodium is below 20 Serum ammonia is elevated will start lactulose Patient on Solu-Medrol and Solu-Cortef will discontinue Solu-Cortef Will try to gently diurese for severe edema meanwhile administering albumin 25% as needed Monitor electrolytes and renal parameters We will add midodrine 10 mg 3 times a day via NG tube Decrease dosage of IV Synthroid Discussed with DAO Starr Subjective ROS Limited/Unobtainable: Yes Objective Objective Last 24 Hour Vital Signs Date Time Temp Pulse Resp B/P (MAP) Pulse Ox O2 Delivery O2 Flow Rate FiO2 04/01/20 11:20 127/49 04/01/20 11:15 86 37 127/49 (75) 92 04/01/20 11:15 127/49 04/01/20 11:00 86 37 119/60 (79) 92 04/01/20 11:00 119/60 04/01/20 11:00 119/60 04/01/20 10:45 86 38 115/61 (79) 93 04/01/20 10:42 86 24 100 04/01/20 10:30 86 41 134/46 (75) 95 04/01/20 10:16 90/48 04/01/20 10:15 83 40 94/44 (61) 89 04/01/20 10:15 82/33 04/01/20 10:00 90/36 04/01/20 10:00 83 43 86/45 (59) 92 04/01/20 09:45 83 46 95/49 (64) 94 04/01/20 09:30 84 32 105/57 (73) 96 04/01/20 09:15 84 46 118/50 (72) 96 04/01/20 09:00 83 36 104/41 (62) 93 04/01/20 09:00 118/50 04/01/20 08:45 82 36 91/44 (60) 93 04/01/20 08:30 82 35 93/40 (57) 93 04/01/20 08:15 82 34 100/39 (59) 92 04/01/20 08:00 98.6 81 38 93/41 (58) 92 04/01/20 08:00 100 04/01/20 08:00 81 04/01/20 08:00 Mechanical Ventilator Mechanical Ventilator 04/01/20 08:00 100/39 04/01/20 07:45 81 29 97/47 (64) 91 04/01/20 07:30 97/47 04/01/20 07:30 81 36 103/44 (63) 90 04/01/20 07:20 81 24 100 04/01/20 07:00 108/49 04/01/20 07:00 80 35 108/49 (68) 90 04/01/20 06:33 98/46 04/01/20 06:30 81 35 105/47 (66) 92 04/01/20 06:00 98/58 04/01/20 06:00 80 32 98/43 (61) 93 04/01/20 05:30 80 27 98/53 (68) 93 04/01/20 05:00 80 29 108/44 (65) 95 04/01/20 05:00 108/44 04/01/20 04:30 81 24 111/50 (70) 97 04/01/20 04:00 100 04/01/20 04:00 Mechanical Ventilator Mechanical Ventilator 04/01/20 04:00 98.1 85 29 100/56 (71) 94 04/01/20 04:00 79 04/01/20 04:00 100/56 04/01/20 03:30 79 26 110/56 (74) 93 04/01/20 03:21 78 24 100 04/01/20 03:00 79 25 117/67 (84) 93 04/01/20 03:00 117/67 04/01/20 02:35 119/63 04/01/20 02:34 119/63 04/01/20 02:30 79 27 119/63 (81) 92 04/01/20 02:00 119/64 04/01/20 02:00 78 25 119/64 (82) 93 04/01/20 01:30 77 26 127/60 (82) 96 04/01/20 01:00 124/53 04/01/20 01:00 77 25 124/53 (76) 94 04/01/20 00:30 78 24 125/69 (87) 92 04/01/20 00:00 76 04/01/20 00:00 122/60 04/01/20 00:00 100 04/01/20 00:00 Mechanical Ventilator Mechanical Ventilator 04/01/20 00:00 97.5 77 24 122/60 (80) 90 03/31/20 23:30 76 25 125/66 (85) 91 03/31/20 23:15 89 23 100 03/31/20 23:00 77 25 126/54 (78) 92 03/31/20 23:00 126/54 03/31/20 22:30 77 24 135/64 (87) 90 03/31/20 22:27 142/62 03/31/20 22:00 143/52 03/31/20 22:00 78 24 143/52 (82) 92 03/31/20 21:30 78 25 122/76 (91) 90 03/31/20 21:00 136/82 03/31/20 21:00 79 27 136/82 (100) 88 03/31/20 20:30 81 27 128/66 (86) 90 03/31/20 20:00 98.7 82 25 135/68 (90) 90 03/31/20 20:00 100 03/31/20 20:00 Mechanical Ventilator Mechanical Ventilator 03/31/20 20:00 135/68 03/31/20 20:00 81 03/31/20 19:30 81 24 100 03/31/20 19:30 82 26 112/69 (83) 90 03/31/20 19:00 81 26 102/54 (70) 90 03/31/20 18:30 80 24 107/57 (74) 90 03/31/20 18:26 101/51 03/31/20 18:00 79 24 96/47 (63) 83 03/31/20 17:30 79 25 93/49 (64) 86 03/31/20 17:14 100 03/31/20 17:00 78 24 100/59 (73) 89 03/31/20 16:30 80 24 96/54 (68) 89 03/31/20 16:00 Mechanical Ventilator Mechanical Ventilator 03/31/20 16:00 100 03/31/20 16:00 97.5 80 24 113/54 (73) 92 03/31/20 16:00 80 03/31/20 15:30 80 24 106/54 (71) 95 03/31/20 15:19 80 24 100 03/31/20 15:14 110/46 03/31/20 15:00 80 24 110/46 (67) 95 03/31/20 14:30 80 24 111/58 (75) 95 03/31/20 14:00 81 24 114/48 (70) 90 03/31/20 13:30 80 27 111/52 (71) 91 03/31/20 13:00 79 24 113/52 (72) 90 03/31/20 12:55 100 03/31/20 12:30 80 24 110/53 (72) 90 Intake and Output 03/31/20 04/01/20 19:00 07:00 Intake Total 2335.5222 ml 1970.141 ml Output Total 710 ml 960 ml Balance 1625.5222 ml 1010.141 ml Free Water 300 ml IV Total 1435.5222 ml 1370.141 ml Tube Feeding 600 ml 600 ml Output Urine Total 710 ml 960 ml # Bowel Movements 1 Laboratory Tests 03/31/20 18:30: Arterial Blood pH 7.496H, Arterial Blood Partial Pressure CO2 44.9, Arterial Blood Partial Pressure O2 97.1, Arterial Blood HCO3 33.9H, Arterial Blood Oxygen Saturation 97.6, Arterial Blood Base Excess 9.7*H, Joaquin Test Positive 04/01/20 07:00: White Blood Count 23.1*H, Red Blood Count 2.58L, Hemoglobin 9.2L, Hematocrit 27.2L, Mean Corpuscular Volume 106H, Mean Corpuscular Hemoglobin 35.9H, Mean Corpuscular Hemoglobin Concent 34.0, Red Cell Distribution Width 23.1H, Platelet Count 116L, Mean Platelet Volume 9.5, Neutrophils (%) (Auto) , Lymphocytes (%) (Auto) , Monocytes (%) (Auto) , Eosinophils (%) (Auto) , Basophils (%) (Auto) , Differential Total Cells Counted 100, Neutrophils % ( Manual) 88H, Lymphocytes % (Manual) 6L, Monocytes % (Manual) 5, Eosinophils % ( Manual) 1, Basophils % (Manual) 0, Band Neutrophils 0, Nucleated Red Blood Cells 2, Platelet Estimate DecreasedL, Platelet Morphology Normal, Polychromasia 1+, Hypochromasia 1+, Anisocytosis 2+, Macrocytosis 1+, Sodium Level 132L, Potassium Level 5.7H, Chloride Level 94L, Carbon Dioxide Level 39H, Anion Gap -1L, Blood Urea Nitrogen 65H, Creatinine 0.8, Estimat Glomerular Filtration Rate > 60, Glucose Level 72L, Uric Acid 7.6H, Calcium Level 9.0, Phosphorus Level 5.2H, Magnesium Level 2.7H, Total Bilirubin 1.6H, Direct Bilirubin 0.8H, Gamma Glutamyl Transpeptidase 746H, Aspartate Amino Transf (AST/ SGOT) 744H, Alanine Aminotransferase (ALT/SGPT) 314H, Alkaline Phosphatase 408H , Ammonia 104H, Total Creatine Kinase 127, Total Protein 6.1L, Albumin 2.1L, Globulin 4.0, Albumin/Globulin Ratio 0.5L Height (Feet): 5 Height (Inches): 1.00 Weight (Pounds): 225 General Appearance: no apparent distress EENT: other - Remains intubated on ventilator Respiratory/Chest: decreased breath sounds Neurologic: other - Poorly responsive Objective No change Cristhian Granados MD April 01, 2020 12:11
[2020-04-01] MEDS ORDERED: Sodium Polystyrene Sulfonate 15gm Powder GT SCH (12:15)
[2020-04-01] MEDS ORDERED: Sterile Water Irrig 1000ml IRRIG ONE (14:07)
[2020-04-01] MEDS ORDERED: NS 275ml ONE (14:07)
--- NOTE | 2020-04-01 14:41 | Surgery Progress Note ---
Surgery Progress Note Subjective Symptoms: worse Additional Comments vent settings worse / 16 Objective Last 24 Hour Vital Signs Date Time Temp Pulse Resp B/P (MAP) Pulse Ox O2 Delivery O2 Flow Rate FiO2 04/01/20 14:06 117/60 04/01/20 14:00 99.3 87 26 117/60 (79) 90 04/01/20 14:00 125/66 04/01/20 14:00 125/66 04/01/20 13:45 87 29 117/60 (79) 93 04/01/20 13:30 88 26 116/57 (76) 93 04/01/20 13:00 87 44 127/60 (82) 92 04/01/20 13:00 129/52 04/01/20 13:00 129/52 04/01/20 12:30 86 44 120/58 (78) 91 04/01/20 12:15 87 48 128/63 (84) 93 04/01/20 12:00 98.6 87 48 128/63 (84) 93 04/01/20 12:00 86 04/01/20 12:00 100 04/01/20 12:00 128/63 04/01/20 12:00 128/63 04/01/20 12:00 Mechanical Ventilator Mechanical Ventilator 04/01/20 11:45 86 40 117/61 (79) 90 04/01/20 11:20 127/49 04/01/20 11:15 86 37 127/49 (75) 92 04/01/20 11:15 127/49 04/01/20 11:00 86 37 119/60 (79) 92 04/01/20 11:00 119/60 04/01/20 11:00 119/60 04/01/20 10:45 86 38 115/61 (79) 93 04/01/20 10:42 86 24 100 04/01/20 10:30 86 41 134/46 (75) 95 04/01/20 10:16 90/48 04/01/20 10:15 83 40 94/44 (61) 89 04/01/20 10:15 82/33 04/01/20 10:00 90/36 04/01/20 10:00 83 43 86/45 (59) 92 04/01/20 09:45 83 46 95/49 (64) 94 04/01/20 09:30 84 32 105/57 (73) 96 04/01/20 09:15 84 46 118/50 (72) 96 04/01/20 09:00 83 36 104/41 (62) 93 04/01/20 09:00 118/50 04/01/20 08:45 82 36 91/44 (60) 93 04/01/20 08:30 82 35 93/40 (57) 93 04/01/20 08:15 82 34 100/39 (59) 92 04/01/20 08:00 98.6 81 38 93/41 (58) 92 04/01/20 08:00 100 04/01/20 08:00 81 04/01/20 08:00 Mechanical Ventilator Mechanical Ventilator 04/01/20 08:00 100/39 04/01/20 07:45 81 29 97/47 (64) 91 04/01/20 07:30 97/47 04/01/20 07:30 81 36 103/44 (63) 90 04/01/20 07:20 81 24 100 04/01/20 07:00 108/49 04/01/20 07:00 80 35 108/49 (68) 90 04/01/20 06:33 98/46 04/01/20 06:30 81 35 105/47 (66) 92 04/01/20 06:00 98/58 04/01/20 06:00 80 32 98/43 (61) 93 04/01/20 05:30 80 27 98/53 (68) 93 04/01/20 05:00 80 29 108/44 (65) 95 04/01/20 05:00 108/44 04/01/20 04:30 81 24 111/50 (70) 97 04/01/20 04:00 100 04/01/20 04:00 Mechanical Ventilator Mechanical Ventilator 04/01/20 04:00 98.1 85 29 100/56 (71) 94 04/01/20 04:00 79 04/01/20 04:00 100/56 04/01/20 03:30 79 26 110/56 (74) 93 04/01/20 03:21 78 24 100 04/01/20 03:00 79 25 117/67 (84) 93 04/01/20 03:00 117/67 04/01/20 02:35 119/63 04/01/20 02:34 119/63 04/01/20 02:30 79 27 119/63 (81) 92 04/01/20 02:00 119/64 04/01/20 02:00 78 25 119/64 (82) 93 04/01/20 01:30 77 26 127/60 (82) 96 04/01/20 01:00 124/53 04/01/20 01:00 77 25 124/53 (76) 94 04/01/20 00:30 78 24 125/69 (87) 92 04/01/20 00:00 76 04/01/20 00:00 122/60 04/01/20 00:00 100 04/01/20 00:00 Mechanical Ventilator Mechanical Ventilator 04/01/20 00:00 97.5 77 24 122/60 (80) 90 03/31/20 23:30 76 25 125/66 (85) 91 03/31/20 23:15 89 23 100 03/31/20 23:00 77 25 126/54 (78) 92 03/31/20 23:00 126/54 03/31/20 22:30 77 24 135/64 (87) 90 03/31/20 22:27 142/62 03/31/20 22:00 143/52 03/31/20 22:00 78 24 143/52 (82) 92 03/31/20 21:30 78 25 122/76 (91) 90 03/31/20 21:00 136/82 03/31/20 21:00 79 27 136/82 (100) 88 03/31/20 20:30 81 27 128/66 (86) 90 03/31/20 20:00 98.7 82 25 135/68 (90) 90 03/31/20 20:00 100 03/31/20 20:00 Mechanical Ventilator Mechanical Ventilator 03/31/20 20:00 135/68 03/31/20 20:00 81 03/31/20 19:30 81 24 100 03/31/20 19:30 82 26 112/69 (83) 90 03/31/20 19:00 81 26 102/54 (70) 90 03/31/20 18:30 80 24 107/57 (74) 90 03/31/20 18:26 101/51 03/31/20 18:00 79 24 96/47 (63) 83 03/31/20 17:30 79 25 93/49 (64) 86 03/31/20 17:14 100 03/31/20 17:00 78 24 100/59 (73) 89 03/31/20 16:30 80 24 96/54 (68) 89 03/31/20 16:00 Mechanical Ventilator Mechanical Ventilator 03/31/20 16:00 100 03/31/20 16:00 97.5 80 24 113/54 (73) 92 03/31/20 16:00 80 03/31/20 15:30 80 24 106/54 (71) 95 03/31/20 15:19 80 24 100 03/31/20 15:14 110/46 03/31/20 15:00 80 24 110/46 (67) 95 I&O Intake and Output 03/31/20 04/01/20 19:00 07:00 Intake Total 2335.5222 ml 1970.141 ml Output Total 710 ml 960 ml Balance 1625.5222 ml 1010.141 ml Free Water 300 ml IV Total 1435.5222 ml 1370.141 ml Tube Feeding 600 ml 600 ml Output Urine Total 710 ml 960 ml # Bowel Movements 1 Dressing: other Wound: other Drains: other Cardiovascular: RSR Respiratory: decreased breath sounds Abdomen: soft, non-distended, decreased bowel sounds Extremities: edema, no tenderness, no cyanosis Laboratory Tests Test 03/31/20 18:30 04/01/20 07:00 Arterial Blood pH 7.496 (7.350-7.450) Arterial Blood Partial Pressure CO2 44.9 mmHg (35.0-45.0) Arterial Blood Partial Pressure O2 97.1 mmHg (75.0-100.0) Arterial Blood HCO3 33.9 mmol/L (22.0-26.0) H Arterial Blood Oxygen Saturation 97.6 % (95-100) Arterial Blood Base Excess 9.7 (-2-2) *H Joaquin Test Positive White Blood Count 23.1 K/UL (4.8-10.8) *H Red Blood Count 2.58 M/UL (4.20-5.40) L Hemoglobin 9.2 G/DL (12.0-16.0) L Hematocrit 27.2 % (37.0-47.0) L Mean Corpuscular Volume 106 FL (80-99) H Mean Corpuscular Hemoglobin 35.9 PG (27.0-31.0) H Mean Corpuscular Hemoglobin Concent 34.0 G/DL (32.0-36.0) Red Cell Distribution Width 23.1 % (11.6-14.8) H Platelet Count 116 K/UL (150-450) L Mean Platelet Volume 9.5 FL (6.5-10.1) Neutrophils (%) (Auto) % (45.0-75.0) Lymphocytes (%) (Auto) % (20.0-45.0) Monocytes (%) (Auto) % (1.0-10.0) Eosinophils (%) (Auto) % (0.0-3.0) Basophils (%) (Auto) % (0.0-2.0) Differential Total Cells Counted 100 Neutrophils % (Manual) 88 % (45-75) H Lymphocytes % (Manual) 6 % (20-45) L Monocytes % (Manual) 5 % (1-10) Eosinophils % (Manual) 1 % (0-3) Basophils % (Manual) 0 % (0-2) Band Neutrophils 0 % (0-8) Nucleated Red Blood Cells 2 /100 WBC Platelet Estimate Decreased L Platelet Morphology Normal Polychromasia 1+ Hypochromasia 1+ Anisocytosis 2+ Macrocytosis 1+ Sodium Level 132 MMOL/L (136-145) L Potassium Level 5.7 MMOL/L (3.5-5.1) H Chloride Level 94 MMOL/L (98-107) L Carbon Dioxide Level 39 MMOL/L (21-32) H Anion Gap -1 mmol/L (5-15) L Blood Urea Nitrogen 65 mg/dL (7-18) H Creatinine 0.8 MG/DL (0.55-1.30) Estimat Glomerular Filtration Rate > 60 mL/min (>60) Glucose Level 72 MG/DL (74-106) L Uric Acid 7.6 MG/DL (2.6-7.2) H Calcium Level 9.0 MG/DL (8.5-10.1) Phosphorus Level 5.2 MG/DL (2.5-4.9) H Magnesium Level 2.7 MG/DL (1.8-2.4) H Total Bilirubin 1.6 MG/DL (0.2-1.0) H Direct Bilirubin 0.8 MG/DL (0.0-0.3) H Gamma Glutamyl Transpeptidase 746 U/L (5-85) H Aspartate Amino Transf (AST/SGOT) 744 U/L (15-37) H Alanine Aminotransferase (ALT/SGPT) 314 U/L (12-78) H Alkaline Phosphatase 408 U/L (46-116) H Ammonia 104 umol/L (11-32) H Total Creatine Kinase 127 U/L (26-308) Total Protein 6.1 G/DL (6.4-8.2) L Albumin 2.1 G/DL (3.4-5.0) L Globulin 4.0 g/dL Albumin/Globulin Ratio 0.5 (1.0-2.7) L Plan Problems: (1) Cellulitis Assessment & Plan: bilateral lower extremity cellulitis / edema chronic venous status changes dermatitis no abscess no purulent drainage ulcerations forming. keep lower extremity elevated while in bed apply skin protectant / moisturizing cream daily okay to shower okay to wrap soft after cream abx as per ID for cellulitis okay for diet duplex ordered trend labs will follow with recs thank you No evidence of deep venous thrombosis involving the visualized veins of the RIGHT lower extremity. refused eval of left COVID ++ cxr noted cont current supportive care improving labs stable improving slowly wean pressors as tolerated Patient is acutely worsened intubated on vent support 2 pressors now worsening labs worsening Prognosis is guarded we will continue with maximal support efforts weaning vent weaning pressors leukocytosis trend lft's Diffuse bilateral interstitial and airspace opacities worsening again vent settings high on pressors (2) COVID-19 Assessment & Plan: see above Theron Sotomayor April 01, 2020 14:41
[2020-04-01] MEDS ORDERED: D5W 550ml IV ONE (16:00)
[2020-04-01] MEDS ORDERED: Tubing IV Secondary IV ONE (16:00)
[2020-04-01] MEDS: Dyna-Hex 2% Top Sol 2oz TOPIC SCH (20:01)
--- NOTE | 2020-04-01 20:22 | General Progress Note ---
Assessment/Plan Problem List: (1) Cellulitis ICD Codes: L03.90 - Cellulitis, unspecified SNOMED: [id number] Qualifiers: Qualified Codes: L03.119 - Cellulitis of unspecified part of limb Status: progressing, unchanged Assessment/Plan: respiratory failure eeg ordered i aske all 3 neurologist to see her for neurology consult including dr vail and dr freeman and dr luis sepsis anemia. h/h is stable cirrhosis poor prognosis pressor support Subjective ROS Limited/Unobtainable: Yes Allergies: Coded Allergies: No Known Allergies (Unverified , 02/29/20) Objective Last 24 Hour Vital Signs Date Time Temp Pulse Resp B/P (MAP) Pulse Ox O2 Delivery O2 Flow Rate FiO2 04/01/20 20:04 88 24 100 04/01/20 20:00 112/46 04/01/20 20:00 112/46 04/01/20 19:00 101/40 04/01/20 19:00 101/40 04/01/20 18:43 122/56 04/01/20 15:02 86 24 100 04/01/20 14:06 117/60 04/01/20 14:00 99.3 87 26 117/60 (79) 90 04/01/20 14:00 125/66 04/01/20 14:00 125/66 04/01/20 13:45 87 29 117/60 (79) 93 04/01/20 13:30 88 26 116/57 (76) 93 04/01/20 13:00 87 44 127/60 (82) 92 04/01/20 13:00 129/52 04/01/20 13:00 129/52 04/01/20 12:30 86 44 120/58 (78) 91 04/01/20 12:15 87 48 128/63 (84) 93 04/01/20 12:00 98.6 87 48 128/63 (84) 93 04/01/20 12:00 86 04/01/20 12:00 100 04/01/20 12:00 128/63 04/01/20 12:00 128/63 04/01/20 12:00 Mechanical Ventilator Mechanical Ventilator 04/01/20 11:45 86 40 117/61 (79) 90 04/01/20 11:20 127/49 04/01/20 11:15 86 37 127/49 (75) 92 04/01/20 11:15 127/49 04/01/20 11:00 86 37 119/60 (79) 92 04/01/20 11:00 119/60 04/01/20 11:00 119/60 04/01/20 10:45 86 38 115/61 (79) 93 04/01/20 10:42 86 24 100 04/01/20 10:30 86 41 134/46 (75) 95 04/01/20 10:16 90/48 04/01/20 10:15 83 40 94/44 (61) 89 04/01/20 10:15 82/33 04/01/20 10:00 90/36 04/01/20 10:00 83 43 86/45 (59) 92 04/01/20 09:45 83 46 95/49 (64) 94 04/01/20 09:30 84 32 105/57 (73) 96 04/01/20 09:15 84 46 118/50 (72) 96 04/01/20 09:00 83 36 104/41 (62) 93 04/01/20 09:00 118/50 04/01/20 08:45 82 36 91/44 (60) 93 04/01/20 08:30 82 35 93/40 (57) 93 04/01/20 08:15 82 34 100/39 (59) 92 04/01/20 08:00 98.6 81 38 93/41 (58) 92 04/01/20 08:00 100 04/01/20 08:00 81 04/01/20 08:00 Mechanical Ventilator Mechanical Ventilator 04/01/20 08:00 100/39 04/01/20 07:45 81 29 97/47 (64) 91 04/01/20 07:30 97/47 04/01/20 07:30 81 36 103/44 (63) 90 04/01/20 07:20 81 24 100 04/01/20 07:00 108/49 04/01/20 07:00 80 35 108/49 (68) 90 04/01/20 06:33 98/46 04/01/20 06:30 81 35 105/47 (66) 92 04/01/20 06:00 98/58 04/01/20 06:00 80 32 98/43 (61) 93 04/01/20 05:30 80 27 98/53 (68) 93 04/01/20 05:00 80 29 108/44 (65) 95 04/01/20 05:00 108/44 04/01/20 04:30 81 24 111/50 (70) 97 04/01/20 04:00 100 04/01/20 04:00 Mechanical Ventilator Mechanical Ventilator 04/01/20 04:00 98.1 85 29 100/56 (71) 94 04/01/20 04:00 79 04/01/20 04:00 100/56 04/01/20 03:30 79 26 110/56 (74) 93 04/01/20 03:21 78 24 100 04/01/20 03:00 79 25 117/67 (84) 93 04/01/20 03:00 117/67 04/01/20 02:35 119/63 04/01/20 02:34 119/63 04/01/20 02:30 79 27 119/63 (81) 92 04/01/20 02:00 119/64 04/01/20 02:00 78 25 119/64 (82) 93 04/01/20 01:30 77 26 127/60 (82) 96 04/01/20 01:00 124/53 04/01/20 01:00 77 25 124/53 (76) 94 04/01/20 00:30 78 24 125/69 (87) 92 04/01/20 00:00 76 04/01/20 00:00 122/60 04/01/20 00:00 100 04/01/20 00:00 Mechanical Ventilator Mechanical Ventilator 04/01/20 00:00 97.5 77 24 122/60 (80) 90 03/31/20 23:30 76 25 125/66 (85) 91 03/31/20 23:15 89 23 100 03/31/20 23:00 77 25 126/54 (78) 92 03/31/20 23:00 126/54 03/31/20 22:30 77 24 135/64 (87) 90 03/31/20 22:27 142/62 03/31/20 22:00 143/52 03/31/20 22:00 78 24 143/52 (82) 92 03/31/20 21:30 78 25 122/76 (91) 90 03/31/20 21:00 136/82 03/31/20 21:00 79 27 136/82 (100) 88 03/31/20 20:30 81 27 128/66 (86) 90 Intake and Output 03/31/20 04/01/20 19:00 07:00 Intake Total 2335.5222 ml 1970.141 ml Output Total 710 ml 960 ml Balance 1625.5222 ml 1010.141 ml Free Water 300 ml IV Total 1435.5222 ml 1370.141 ml Tube Feeding 600 ml 600 ml Output Urine Total 710 ml 960 ml # Bowel Movements 1 Laboratory Tests 04/01/20 07:00: White Blood Count 23.1*H, Red Blood Count 2.58L, Hemoglobin 9.2L, Hematocrit 27.2L, Mean Corpuscular Volume 106H, Mean Corpuscular Hemoglobin 35.9H, Mean Corpuscular Hemoglobin Concent 34.0, Red Cell Distribution Width 23.1H, Platelet Count 116L, Mean Platelet Volume 9.5, Neutrophils (%) (Auto) , Lymphocytes (%) (Auto) , Monocytes (%) (Auto) , Eosinophils (%) (Auto) , Basophils (%) (Auto) , Differential Total Cells Counted 100, Neutrophils % ( Manual) 88H, Lymphocytes % (Manual) 6L, Monocytes % (Manual) 5, Eosinophils % ( Manual) 1, Basophils % (Manual) 0, Band Neutrophils 0, Nucleated Red Blood Cells 2, Platelet Estimate DecreasedL, Platelet Morphology Normal, Polychromasia 1+, Hypochromasia 1+, Anisocytosis 2+, Macrocytosis 1+, Sodium Level 132L, Potassium Level 5.7H, Chloride Level 94L, Carbon Dioxide Level 39H, Anion Gap -1L, Blood Urea Nitrogen 65H, Creatinine 0.8, Estimat Glomerular Filtration Rate > 60, Glucose Level 72L, Uric Acid 7.6H, Calcium Level 9.0, Phosphorus Level 5.2H, Magnesium Level 2.7H, Total Bilirubin 1.6H, Direct Bilirubin 0.8H, Gamma Glutamyl Transpeptidase 746H, Aspartate Amino Transf (AST/ SGOT) 744H, Alanine Aminotransferase (ALT/SGPT) 314H, Alkaline Phosphatase 408H , Ammonia 104H, Total Creatine Kinase 127, Total Protein 6.1L, Albumin 2.1L, Globulin 4.0, Albumin/Globulin Ratio 0.5L 04/01/20 15:35: Fibrinogen 195L, Fibrin Degradation Products, Quant [Pending], D-Dimer 5.44H, Emfc-qddd-2-Glycoprotein I IgG Ab [Pending], Wcmv-umst-2-Glycoprotein I IgA Ab [ Pending], Pyad-idln-3-Glycoprotein I IgM Ab [Pending], Anti-Cardiolipin IgG Antibody [Pending], Anti-Cardiolipin IgA Antibody [Pending], Anti-Cardiolipin IgM Antibody [Pending] Height (Feet): 5 Height (Inches): 1.00 Weight (Pounds): 225 Celso Moreno MD April 01, 2020 20:22
[2020-04-01] MEDS: fentaNYL Citrate 1000 MCG in NS 100ml IV SCH (22:30)
--- NOTE | 2020-04-01 23:44 | Electroencephalogram ---
DATE OF PROCEDURE: 03/31/2020 REQUESTING PHYSICIANS: Cristhian Granados MD, and Celso Moreno MD READING PHYSICIAN: Chris Jacob MD PROCEDURE PERFORMED: Electroencephalogram. DATE OF TRACIN03/31/2020 HISTORY: This EEG was performed on a 59-year-old lady with a history of COVID-19 infection associated with respiratory failure, renal failure, and sepsis. The purpose of this EEG was to evaluate the patient for the degree and type of cerebral dysfunction as she has been unresponsive for quite some time. TECHNICAL NOTE: This EEG was performed on a [employer] with electrodes placed on the scalp according to the International 10-20 system. A special montage with double distance electrodes was utilized. The EEG was technically satisfactory and was performed while the patient was in an unresponsive state. OBSERVATIONS: In the unresponsive state, the background activity consisted of very low amplitude, slow activity in the theta and delta range. When the patient was stimulated with eye opening, eye closure, and painful stimuli, no significant change in the EEG background was noted. No definite focal abnormalities or epileptiform discharges were seen. IMPRESSION: This is a severely abnormal EEG characterized by very low amplitude, slow activity with no reactivity to external stimulation. COMMENT: This study is consistent with severe encephalopathy. Clinical correlation is recommended. Chris Jacob M.D.,. M.S.P.H. Clinical Neurophysiologist DR: HUSAM JOB#: [id number] ROMAN
--- NOTE | 2020-04-01 23:53 | Cardiology Progress Note ---
Assessment/Plan Assessment/Plan 1. Acute hypoxic hypercapnic respiratory failure, due to bilateral PNA caused by COVID-19 infection, on steroids. 2. Septic shock with bradycardia, on dopamine gtt and midodrine, keep MAP at 65 mmHg. Normal LV function with LVEF at 60%. 3. Hyponatremia, resolved. 4. Bilateral lower extremity cellulitis with Pseudomonas aeruginosa. 5. Hypernatremia, resolved. 6. HCV infection with liver cirrhosis. Subjective Subjective Sinus rhythm at rate of 89. On higher dose of dopamine gtt. No gag reflex according to the nurse. O2 saturation is low despite high FiO2 rate. Objective Last 24 Hour Vital Signs Date Time Temp Pulse Resp B/P (MAP) Pulse Ox O2 Delivery O2 Flow Rate FiO2 04/01/20 23:00 89 33 123/50 (74) 97 04/01/20 23:00 123/50 04/01/20 23:00 123/50 04/01/20 22:59 89 24 80 04/01/20 22:00 89 31 114/50 (71) 96 04/01/20 22:00 114/50 04/01/20 22:00 114/50 04/01/20 21:00 89 29 119/53 (75) 96 04/01/20 21:00 119/53 04/01/20 21:00 119/53 04/01/20 20:30 88 30 119/48 (71) 95 04/01/20 20:04 88 24 100 04/01/20 20:00 100 04/01/20 20:00 Mechanical Ventilator Mechanical Ventilator 04/01/20 20:00 112/46 04/01/20 20:00 112/46 04/01/20 20:00 100.0 88 28 112/46 (68) 96 04/01/20 20:00 88 04/01/20 19:00 86 27 98/41 (60) 92 04/01/20 19:00 101/40 04/01/20 19:00 101/40 04/01/20 18:56 86 33 93/38 (56) 92 04/01/20 18:45 83 29 89/36 (53) 90 04/01/20 18:43 122/56 04/01/20 18:40 93/38 04/01/20 18:30 87 30 122/56 (78) 93 04/01/20 18:15 86 27 111/51 (71) 94 04/01/20 18:00 86 31 105/47 (66) 93 04/01/20 18:00 111/51 04/01/20 18:00 111/51 04/01/20 17:45 86 25 99/48 (65) 92 04/01/20 17:30 87 28 113/53 (73) 93 04/01/20 17:15 88 26 132/59 (83) 94 04/01/20 17:00 132/59 04/01/20 17:00 132/59 04/01/20 17:00 88 26 132/66 (88) 93 04/01/20 16:45 88 26 128/63 (84) 93 04/01/20 16:30 88 26 134/62 (86) 93 04/01/20 16:15 88 26 133/64 (87) 93 04/01/20 16:00 99.3 88 28 131/65 (87) 93 04/01/20 16:00 Mechanical Ventilator Mechanical Ventilator 04/01/20 16:00 85 04/01/20 16:00 133/64 04/01/20 16:00 133/64 04/01/20 16:00 100 04/01/20 15:45 88 27 129/68 (88) 93 04/01/20 15:30 88 26 127/58 (81) 94 04/01/20 15:15 88 26 134/64 (87) 95 04/01/20 15:02 86 24 100 04/01/20 15:00 86 26 131/68 (89) 94 04/01/20 15:00 134/64 04/01/20 15:00 134/64 04/01/20 14:45 88 26 129/64 (85) 93 04/01/20 14:30 87 27 129/66 (87) 92 04/01/20 14:15 87 27 125/66 (85) 91 04/01/20 14:06 117/60 04/01/20 14:00 99.3 87 26 117/60 (79) 90 04/01/20 14:00 125/66 04/01/20 14:00 125/66 04/01/20 13:45 87 29 117/60 (79) 93 04/01/20 13:30 88 26 116/57 (76) 93 04/01/20 13:00 87 44 127/60 (82) 92 04/01/20 13:00 129/52 04/01/20 13:00 129/52 04/01/20 12:30 86 44 120/58 (78) 91 04/01/20 12:15 87 48 128/63 (84) 93 04/01/20 12:00 98.6 87 48 128/63 (84) 93 04/01/20 12:00 86 04/01/20 12:00 100 04/01/20 12:00 128/63 04/01/20 12:00 128/63 04/01/20 12:00 Mechanical Ventilator Mechanical Ventilator 04/01/20 11:45 86 40 117/61 (79) 90 04/01/20 11:20 127/49 04/01/20 11:15 86 37 127/49 (75) 92 04/01/20 11:15 127/49 04/01/20 11:00 86 37 119/60 (79) 92 04/01/20 11:00 119/60 04/01/20 11:00 119/60 04/01/20 10:45 86 38 115/61 (79) 93 04/01/20 10:42 86 24 100 04/01/20 10:30 86 41 134/46 (75) 95 04/01/20 10:16 90/48 04/01/20 10:15 83 40 94/44 (61) 89 04/01/20 10:15 82/33 04/01/20 10:00 90/36 04/01/20 10:00 83 43 86/45 (59) 92 04/01/20 09:45 83 46 95/49 (64) 94 04/01/20 09:30 84 32 105/57 (73) 96 04/01/20 09:15 84 46 118/50 (72) 96 04/01/20 09:00 83 36 104/41 (62) 93 04/01/20 09:00 118/50 04/01/20 08:45 82 36 91/44 (60) 93 04/01/20 08:30 82 35 93/40 (57) 93 04/01/20 08:15 82 34 100/39 (59) 92 04/01/20 08:00 98.6 81 38 93/41 (58) 92 04/01/20 08:00 100 04/01/20 08:00 81 04/01/20 08:00 Mechanical Ventilator Mechanical Ventilator 04/01/20 08:00 100/39 04/01/20 07:45 81 29 97/47 (64) 91 04/01/20 07:30 97/47 04/01/20 07:30 81 36 103/44 (63) 90 04/01/20 07:20 81 24 100 04/01/20 07:00 108/49 04/01/20 07:00 80 35 108/49 (68) 90 04/01/20 06:33 98/46 04/01/20 06:30 81 35 105/47 (66) 92 04/01/20 06:00 98/58 04/01/20 06:00 80 32 98/43 (61) 93 04/01/20 05:30 80 27 98/53 (68) 93 04/01/20 05:00 80 29 108/44 (65) 95 04/01/20 05:00 108/44 04/01/20 04:30 81 24 111/50 (70) 97 04/01/20 04:00 100 04/01/20 04:00 Mechanical Ventilator Mechanical Ventilator 04/01/20 04:00 98.1 85 29 100/56 (71) 94 04/01/20 04:00 79 04/01/20 04:00 100/56 04/01/20 03:30 79 26 110/56 (74) 93 04/01/20 03:21 78 24 100 04/01/20 03:00 79 25 117/67 (84) 93 04/01/20 03:00 117/67 04/01/20 02:35 119/63 04/01/20 02:34 119/63 04/01/20 02:30 79 27 119/63 (81) 92 04/01/20 02:00 119/64 04/01/20 02:00 78 25 119/64 (82) 93 04/01/20 01:30 77 26 127/60 (82) 96 04/01/20 01:00 124/53 04/01/20 01:00 77 25 124/53 (76) 94 04/01/20 00:30 78 24 125/69 (87) 92 04/01/20 00:00 76 04/01/20 00:00 122/60 04/01/20 00:00 100 04/01/20 00:00 Mechanical Ventilator Mechanical Ventilator 04/01/20 00:00 97.5 77 24 122/60 (80) 90 Intake and Output 03/31/20 04/01/20 19:00 07:00 Intake Total 2335.5222 ml 1970.141 ml Output Total 710 ml 960 ml Balance 1625.5222 ml 1010.141 ml Free Water 300 ml IV Total 1435.5222 ml 1370.141 ml Tube Feeding 600 ml 600 ml Output Urine Total 710 ml 960 ml # Bowel Movements 1 2D Echo: EF 60%, Mild LVH, Mild MR. RVSP 44 mmHg, Normal LVD Fxn Laboratory Tests Test 04/01/20 07:00 04/01/20 15:35 White Blood Count 23.1 K/UL (4.8-10.8) *H Red Blood Count 2.58 M/UL (4.20-5.40) L Hemoglobin 9.2 G/DL (12.0-16.0) L Hematocrit 27.2 % (37.0-47.0) L Mean Corpuscular Volume 106 FL (80-99) H Mean Corpuscular Hemoglobin 35.9 PG (27.0-31.0) H Mean Corpuscular Hemoglobin Concent 34.0 G/DL (32.0-36.0) Red Cell Distribution Width 23.1 % (11.6-14.8) H Platelet Count 116 K/UL (150-450) L Mean Platelet Volume 9.5 FL (6.5-10.1) Neutrophils (%) (Auto) % (45.0-75.0) Lymphocytes (%) (Auto) % (20.0-45.0) Monocytes (%) (Auto) % (1.0-10.0) Eosinophils (%) (Auto) % (0.0-3.0) Basophils (%) (Auto) % (0.0-2.0) Differential Total Cells Counted 100 Neutrophils % (Manual) 88 % (45-75) H Lymphocytes % (Manual) 6 % (20-45) L Monocytes % (Manual) 5 % (1-10) Eosinophils % (Manual) 1 % (0-3) Basophils % (Manual) 0 % (0-2) Band Neutrophils 0 % (0-8) Nucleated Red Blood Cells 2 /100 WBC Platelet Estimate Decreased L Platelet Morphology Normal Polychromasia 1+ Hypochromasia 1+ Anisocytosis 2+ Macrocytosis 1+ Sodium Level 132 MMOL/L (136-145) L Potassium Level 5.7 MMOL/L (3.5-5.1) H Chloride Level 94 MMOL/L (98-107) L Carbon Dioxide Level 39 MMOL/L (21-32) H Anion Gap -1 mmol/L (5-15) L Blood Urea Nitrogen 65 mg/dL (7-18) H Creatinine 0.8 MG/DL (0.55-1.30) Estimat Glomerular Filtration Rate > 60 mL/min (>60) Glucose Level 72 MG/DL (74-106) L Uric Acid 7.6 MG/DL (2.6-7.2) H Calcium Level 9.0 MG/DL (8.5-10.1) Phosphorus Level 5.2 MG/DL (2.5-4.9) H Magnesium Level 2.7 MG/DL (1.8-2.4) H Total Bilirubin 1.6 MG/DL (0.2-1.0) H Direct Bilirubin 0.8 MG/DL (0.0-0.3) H Gamma Glutamyl Transpeptidase 746 U/L (5-85) H Aspartate Amino Transf (AST/SGOT) 744 U/L (15-37) H Alanine Aminotransferase (ALT/SGPT) 314 U/L (12-78) H Alkaline Phosphatase 408 U/L (46-116) H Ammonia 104 umol/L (11-32) H Total Creatine Kinase 127 U/L (26-308) Total Protein 6.1 G/DL (6.4-8.2) L Albumin 2.1 G/DL (3.4-5.0) L Globulin 4.0 g/dL Albumin/Globulin Ratio 0.5 (1.0-2.7) L Fibrinogen 195 mg/dL (200-400) L Fibrin Degradation Products, Quant Pending D-Dimer 5.44 mg/L FEU (0.00-0.49) H Zlsj-dxuh-5-Glycoprotein I IgG Ab Pending Wpah-qbme-3-Glycoprotein I IgA Ab Pending Qtac-bmmc-8-Glycoprotein I IgM Ab Pending Anti-Cardiolipin IgG Antibody Pending Anti-Cardiolipin IgA Antibody Pending Anti-Cardiolipin IgM Antibody Pending Objective HEENT: Atraumatic and normocephalic. Anicteric. Intubated. NECK: JVP cannot be assessed. No carotid bruit. + ETT. CARDIOVASCULAR: Normal S1, S2. Regular rate and rhythm. No murmurs, gallops, or rubs. PMI is at fourth intercostal space at left midclavicular line. LUNGS: Bibasilar crackles. ABDOMEN: Soft, nontender, and nondistended. No hepatosplenomegaly. Positive bowel sounds. EXTREMITIES: A 2+ edema bilaterally associated with erythema with blistering and crust formation of both feet. Berto Gonzalez MD April 01, 2020 23:52
[2020-04-02] VITALS (38 sets, daily range): BP systolic 96–127; BP diastolic 38–60
--- NOTE | 2020-04-02 00:30 | Pulmonolgy Critical Care Note ---
Critical Care - Asmt/Plan Assessment/Plan: Pulmonary CCM Progress Note HPI Patient is a 59 year old woman with significant obesity, admitted with bilateral lower extremity cellulitis, had complained of increased swelling and redness to both of her feet and legs Had elevated BNP on admission, persistent edema since admission, worsening hypoxia. Patient had previous hospitalizations for cellulitis, PMH Hypothyroidism, Obesity, Cirrhosis, Anemia, Anxiety, Cellulitis Remains unresponsive off sedation > 48 hours, pupils dilated, minimally reactive , occasionally triggering ventilator, CT/Neuro consult pending. EEG severe encephalopathy COVID 19 positive, Pneumonia, Respiratory failure VQ no significant perfusion abnormality, prev LE dupplex negative on one leg Did not tolerating Proning previously Worsening PaO2/FIO2, VC settings adjusted, P 16, FIO2 now 100%%, has elevated PaCO2 Renal following Hypothyroidism, elevated glucose, Endocrine following [facility] previously - Remdesavir requested for when available, [facility] - not available as yet Previously received IL6 inhibitor inititial dose (4mg/Kg - all that was available), subsequent dose pending, on steroids - being weaned 10 mg daily Seen earlier Seen on 04/01/2020 Allergies: No Known Allergies Past Medical History: Obesity, Cirrhosis, Anemia, Anxiety, Cellulitis, Hypothyroidism All Other Systems: negative except mentioned in HPI Physical Exam Vital Signs Noted General Appearance: Obese, no reaction to pain despite no sedation, intubated Head: normocephalic, atraumatic Eyes: pupils dilated and non responsive to light bilaterally ENT: moist MM, no LN Respiratory: Bilateral crackles, bilateral rhonchi, not overbreathing the ventilator Cardiovascular: regular rate, rhythm, HS1, HS2 RRR Gastrointestinal: Obese, soft non tender, ND Musculoskeletal: Mild edema and erythema bilateral lower extremity, patient has crusting on both feet, Neurologic: non responsive, no focal signs noted, no seizures, no response to pain Impression: Covid Pneumonia, s/p IL6 inhibitor, sp Hydroxychloroquine, Ivermectin Worsening hypoxia, worsening PCO2 Bilateral dilated non reactive pupils, patient unresponsive despite no sedation Not triggering ventilator No response to pain Increased WCC - possible secondary to steroids ID following Bilateral Lower Extremity Cellulitis Elevated NPA, severe bilateral edema - improving Cirrhosis, elevated transaminases/ammonia Splenomegaly Anemia Anxiety Hyponatremia Hypothyroidism Plan Neurology Consultation/CT head pending IV Antibiotics per ID On trial of steroids - currently 10 mg daily, being weaned to off, s/p IL6 inhibitor Surgery following for wounds Hematology following for anemia, observing for Neutropenia/thrombocytopenia Renal following for hypernatremia/volume status Endocrine following for Hypothyroidism, on ISS Monitor labs Bronchodilators PPX - SCD AC VC Proning PRN Supplement electrolytes PRN Albuterol PRN MDI [facility]ENTION SPECIALIST Medications Previously d/w Patients daughter Tri - discussed grave prognosis, possibility of patient having had possible stroke/IC event, suggested DNAR - wants full code Case d/w RN Previously [facility] - Remdesavir ordered, awaiting supply Labs Noted Chest X-Ray: Cardiomegaly, left lower lobe atelectasis versus effusion, worsening infiltrates/congestion Subjective ROS Limited/Unobtainable: No Constitutional: Reports: no symptoms Gastrointestinal/Abdominal: Reports: no symptoms Musculoskeletal: Reports: other - SOB Allergies: Coded Allergies: No Known Allergies (Unverified , 02/29/20) ICU time 50 minutes Critical Care - Objective Last 24 Hour Vital Signs Date Time Temp Pulse Resp B/P (MAP) Pulse Ox O2 Delivery O2 Flow Rate FiO2 04/02/20 00:00 Mechanical Ventilator Mechanical Ventilator 04/02/20 00:00 80 04/01/20 23:00 89 33 123/50 (74) 97 04/01/20 23:00 123/50 04/01/20 23:00 123/50 04/01/20 22:59 89 24 80 04/01/20 22:00 89 31 114/50 (71) 96 04/01/20 22:00 114/50 04/01/20 22:00 114/50 04/01/20 21:56 100.7 04/01/20 21:00 89 29 119/53 (75) 96 04/01/20 21:00 119/53 04/01/20 21:00 119/53 04/01/20 20:30 88 30 119/48 (71) 95 04/01/20 20:04 88 24 100 04/01/20 20:00 100 04/01/20 20:00 Mechanical Ventilator Mechanical Ventilator 04/01/20 20:00 112/46 04/01/20 20:00 112/46 04/01/20 20:00 100.0 88 28 112/46 (68) 96 04/01/20 20:00 88 04/01/20 19:00 86 27 98/41 (60) 92 04/01/20 19:00 101/40 04/01/20 19:00 101/40 04/01/20 18:56 86 33 93/38 (56) 92 04/01/20 18:45 83 29 89/36 (53) 90 04/01/20 18:43 122/56 04/01/20 18:40 93/38 04/01/20 18:30 87 30 122/56 (78) 93 04/01/20 18:15 86 27 111/51 (71) 94 04/01/20 18:00 86 31 105/47 (66) 93 04/01/20 18:00 111/51 04/01/20 18:00 111/51 04/01/20 17:45 86 25 99/48 (65) 92 04/01/20 17:30 87 28 113/53 (73) 93 04/01/20 17:15 88 26 132/59 (83) 94 04/01/20 17:00 132/59 04/01/20 17:00 132/59 04/01/20 17:00 88 26 132/66 (88) 93 04/01/20 16:45 88 26 128/63 (84) 93 04/01/20 16:30 88 26 134/62 (86) 93 04/01/20 16:15 88 26 133/64 (87) 93 04/01/20 16:00 99.3 88 28 131/65 (87) 93 04/01/20 16:00 Mechanical Ventilator Mechanical Ventilator 04/01/20 16:00 85 04/01/20 16:00 133/64 04/01/20 16:00 133/64 04/01/20 16:00 100 04/01/20 15:45 88 27 129/68 (88) 93 04/01/20 15:30 88 26 127/58 (81) 94 04/01/20 15:15 88 26 134/64 (87) 95 04/01/20 15:02 86 24 100 04/01/20 15:00 86 26 131/68 (89) 94 04/01/20 15:00 134/64 04/01/20 15:00 134/64 04/01/20 14:45 88 26 129/64 (85) 93 04/01/20 14:30 87 27 129/66 (87) 92 04/01/20 14:15 87 27 125/66 (85) 91 04/01/20 14:06 117/60 04/01/20 14:00 99.3 87 26 117/60 (79) 90 04/01/20 14:00 125/66 04/01/20 14:00 125/66 04/01/20 13:45 87 29 117/60 (79) 93 04/01/20 13:30 88 26 116/57 (76) 93 04/01/20 13:00 87 44 127/60 (82) 92 04/01/20 13:00 129/52 04/01/20 13:00 129/52 04/01/20 12:30 86 44 120/58 (78) 91 04/01/20 12:15 87 48 128/63 (84) 93 04/01/20 12:00 98.6 87 48 128/63 (84) 93 04/01/20 12:00 86 04/01/20 12:00 100 04/01/20 12:00 128/63 04/01/20 12:00 128/63 04/01/20 12:00 Mechanical Ventilator Mechanical Ventilator 04/01/20 11:45 86 40 117/61 (79) 90 04/01/20 11:20 127/49 04/01/20 11:15 86 37 127/49 (75) 92 04/01/20 11:15 127/49 04/01/20 11:00 86 37 119/60 (79) 92 04/01/20 11:00 119/60 04/01/20 11:00 119/60 04/01/20 10:45 86 38 115/61 (79) 93 04/01/20 10:42 86 24 100 04/01/20 10:30 86 41 134/46 (75) 95 04/01/20 10:16 90/48 04/01/20 10:15 83 40 94/44 (61) 89 04/01/20 10:15 82/33 04/01/20 10:00 90/36 04/01/20 10:00 83 43 86/45 (59) 92 04/01/20 09:45 83 46 95/49 (64) 94 04/01/20 09:30 84 32 105/57 (73) 96 04/01/20 09:15 84 46 118/50 (72) 96 04/01/20 09:00 83 36 104/41 (62) 93 04/01/20 09:00 118/50 04/01/20 08:45 82 36 91/44 (60) 93 04/01/20 08:30 82 35 93/40 (57) 93 04/01/20 08:15 82 34 100/39 (59) 92 04/01/20 08:00 98.6 81 38 93/41 (58) 92 04/01/20 08:00 100 04/01/20 08:00 81 04/01/20 08:00 Mechanical Ventilator Mechanical Ventilator 04/01/20 08:00 100/39 04/01/20 07:45 81 29 97/47 (64) 91 04/01/20 07:30 97/47 04/01/20 07:30 81 36 103/44 (63) 90 04/01/20 07:20 81 24 100 04/01/20 07:00 108/49 04/01/20 07:00 80 35 108/49 (68) 90 04/01/20 06:33 98/46 04/01/20 06:30 81 35 105/47 (66) 92 04/01/20 06:00 98/58 04/01/20 06:00 80 32 98/43 (61) 93 04/01/20 05:30 80 27 98/53 (68) 93 04/01/20 05:00 80 29 108/44 (65) 95 04/01/20 05:00 108/44 04/01/20 04:30 81 24 111/50 (70) 97 04/01/20 04:00 100 04/01/20 04:00 Mechanical Ventilator Mechanical Ventilator 04/01/20 04:00 98.1 85 29 100/56 (71) 94 04/01/20 04:00 79 04/01/20 04:00 100/56 04/01/20 03:30 79 26 110/56 (74) 93 04/01/20 03:21 78 24 100 04/01/20 03:00 79 25 117/67 (84) 93 04/01/20 03:00 117/67 04/01/20 02:35 119/63 04/01/20 02:34 119/63 04/01/20 02:30 79 27 119/63 (81) 92 04/01/20 02:00 119/64 04/01/20 02:00 78 25 119/64 (82) 93 04/01/20 01:30 77 26 127/60 (82) 96 04/01/20 01:00 124/53 04/01/20 01:00 77 25 124/53 (76) 94 04/01/20 00:30 78 24 125/69 (87) 92 Accucheck: 149 Critical Care - Subjective ROS Limited/Unobtainable: Yes Condition: critical IV Access: PICC FI02: 80 Vent Support Breath Rate: 24 Vent Support Mode: AC Vent Tidal Volume: 400 Sputum Amount: Scant PEEP: 16.0 PIP: 35 Tube Feeding Amount: 0 I&O: Intake and Output 04/01/20 04/02/20 19:00 07:00 Intake Total 2243.342 ml 645.092 ml Output Total 360 ml 110 ml Balance 1883.342 ml 535.092 ml Free Water 30 ml IV Total 1863.342 ml 645.092 ml Tube Feeding 350 ml 0 ml Output Urine Total 360 ml 110 ml # Bowel Movements 3 ET-Tube: 7.5 ET Position: 21 Doron Carrillo MD April 02, 2020 00:30
[2020-04-02] MEDS: NovoLOG Insulin Flexpen SUBQ SCH ×6 (01:00→21:00)
[2020-04-02] MEDS: DOPamine 400mg/250ml 250 ML IV SCH ×3 (02:30→21:00)
[2020-04-02] MEDS: Lactulose 20gm/30ml UDC ORAL SCH ×3 (05:47→21:12)
[2020-04-02] MEDS: Meropenem 1 GM in NS 55 ML IVPB SCH ×3 (05:47→21:12)
--- NOTE | 2020-04-02 07:33 | Hematology/Onc Progress Note ---
Assessment/Plan Assessment/Plan Assessment and Recs # Pancytopenia -- multiple etiologies could be related to underlying liver disease, medication-induced, infection versus viral syndrome versus underlying bone marrow cause, in this case, has severe liver disease and cirrhosis, HEP C++ , also cellulitis, COVID19++ --> peripheral smear has been ordered and does not show significant abnormalities and none noted --> Medications have been reviewed --> Continue to monitor for improvement, trend cbc --> Hep panel and HIV are both negative --> US abd ordered to r/o cirrhosis and hepatosplenomegaly ->CIRRHOSIS IS NOTED , LARGE SPLEEN --> reverse isolation if ANC is <2000 --> Give neupogen if ANC <1000 --> Transfuse if hgb <7, with 1 unit prbc --> anemia panel ordered as well-->CW acd --> hgb trend 7-->7.1-->8.4-->8.2 -->8.7-->9.9-->9.2-->9.5-->9.1-->10.1 -->9 --> plt 145k-->152-->162k-->149k-->121k-->171k-->149-->163-->135 --> wbc 3.4-->3.5->3.9->4.4-->11-->10.8 -->15->23-->26-->27-->26.7 --> abx: sameer/rifaximin-->levaquin /vanc-->sameer # Leukocytosis with Cellulitis of the lower extremities --> continue abx as needed as per id --> Started on IV antibiotics-->azithro/cefepime-->levaquin-->sameer --> as per surg recs, wound care --> on steriods at this time, likely contributor # Ftt --> remains on mirtazapine --> daily weights # Elevated LFTS --> as per gi --> due to cirrhosis # Respiratory failure --> s/p intubation 03/16 --> prone positioning as needed by pulm # Dvt ppx lovenox sq The timing of this note does not necessarily reflect the time of the patient was seen. Greatly appreciate consultation. Subjective Allergies: Coded Allergies: No Known Allergies (Unverified , 02/29/20) Subjective 03/02 no events, no bleeding, hgb 7.1, no hemolysis 03/03 s/p blood, hgb improved to 8.4, stool ob negtive, on abx 03/05 asleep, no acute distress, hgb 8.2 03/06 remains comfortable, on abx, plt remains low 03/07 is on nonrebreather, no night sweats, labs are noted 03/08 labs reviewed, being diuresed, seen by cards, psych, labs noted 03/09 lasix adjusted, wbc remains low at 3.9, reviewed meds, smear 03/10 no night sweats, no bleeding, labs noted, smear noted 03/12 labs noted, none completed, have reordered, cellulitis better 03/13 is continuing with chest pain, cards aware, no further studies until covid neg 03/14 labs noted, no bleeding, diuresis as needed, hgb stable 03/15 alseep is cooperative, no bleeding, meds noted 03/16 no bleeding or chills, hgb 10.8, no night sweats, no major events 03/17 now intubated, no bleeding, labs noted, dw rn 03/19 remains intubated, no bleeding, labs noted, on pressors 03/20 prone posiition, seen by gi and renal, nob leeding, hgb 10.1 03/21 sedated, remains agitated, pulling on 2p restraints, no bleeding 03/22 icu, h/h stable, finished plaq/zithro, no acute distress 03/23 in icu, remains restless no bleeding, labs noted, no bleeding 03/24 in icu, poor prognosis, no night sweats, no fc 03/26 on vent, unresponsive, no bleeding, wbc high is on abx and steriods 03/27 remains on vent, ngt, no bleeding, already on abx on steriods 03/28 labs noted, no bleeding, wbc 23k, hgb 9, still with ongoing leukocytosis, ngt feeds 03/29 icu, started on sameer, steroids being tapered, wbc 26.4, no sob 03/30 no major changes, in icu, resp distress, on vent, wbc remains elevated 03/31 picc intact, wbc 26, amonia 104, no sob, continues on steroids 04/02 icu, nonverbal, vent, no distress Objective Objective Current Medications Medications (Trade) Dose Ordered Sig/Dolores Route PRN Reason Start Time Stop Time Status Last Admin Dose Admin Acetaminophen (Tylenol) 650 mg Q4H PRN NG Temp >100.5 04/01/20 22:00 05/01/20 21:59 Acetaminophen (Tylenol) 650 mg Q4H PRN ORAL Mild Pain (Pain Scale 1-3) 03/13/20 14:53 04/12/20 14:52 04/01/20 21:26 Chlorhexidine Gluconate (Lucretia-Hex 2%) 1 applic DAILY@2000 TOPIC 03/13/20 20:00 06/11/20 19:59 04/01/20 20:01 Dextrose 1,000 ml @ 100 mls/hr Q10H IV 04/01/20 12:09 05/01/20 12:08 04/01/20 20:59 Dextrose (Dextrose 50%) 25 ml Q30M PRN IV Hypoglycemia 03/28/20 06:45 06/26/20 06:44 Dextrose (Dextrose 50%) 50 ml Q30M PRN IV Hypoglycemia 03/28/20 06:45 06/26/20 06:44 04/01/20 08:57 Dopamine HCl/ Dextrose 250 ml @ 0 mls/hr Q24H IV 03/16/20 19:30 06/14/20 19:29 04/02/20 02:30 Fentanyl Citrate 1000 mcg/Sodium Chloride 100 ml @ 0 mls/hr Q24H IV 03/27/20 22:30 04/03/20 22:29 03/27/20 22:56 Fluconazole (Diflucan) 200 mg DAILY NG 03/31/20 11:00 04/07/20 10:59 04/01/20 08:41 Hydralazine HCl (Apresoline) 10 mg Q6H PRN IV For High Blood Pressure 03/24/20 16:45 06/22/20 16:44 Insulin Aspart (NovoLOG) EVERY 4 HOURS SUBQ 03/26/20 09:00 06/24/20 08:59 04/02/20 05:00 Lactulose (Cephulac) 40 gm Q8HR ORAL 04/01/20 14:00 04/30/20 17:59 04/02/20 05:47 Levothyroxine Sodium (Synthroid) 50 mcg DAILY IV 03/21/20 09:00 04/17/20 11:59 04/01/20 08:40 Meropenem 1 gm/ Sodium Chloride 55 ml @ 110 mls/hr Q8HR IVPB 03/29/20 14:00 04/07/20 13:59 04/02/20 05:47 Methylprednisolone Sodium Succinate (Solu-MEDROL) 10 mg DAILY IVP 03/30/20 09:00 04/02/20 08:59 04/01/20 08:40 Midodrine (Pro-Amatine) 10 mg THREE TIMES A DAY NG 03/27/20 09:00 06/20/20 12:29 04/01/20 17:20 Norepinephrine Bitartrate 4 mg/ Dextrose 250 ml @ 0 mls/hr Q24H PRN IV For hypotension 03/25/20 16:30 04/24/20 16:29 04/02/20 03:55 Vasopressin 100 units/Sodium Chloride 100 ml @ 0 mls/hr Q24H PRN IV For hypotension 03/16/20 11:00 04/15/20 10:59 03/19/20 18:03 Last 24 Hour Vital Signs Date Time Temp Pulse Resp B/P (MAP) Pulse Ox O2 Delivery O2 Flow Rate FiO2 04/02/20 07:00 91 24 118/56 (76) 96 04/02/20 07:00 118/56 04/02/20 07:00 118/56 04/02/20 06:00 125/56 04/02/20 06:00 125/56 04/02/20 06:00 93 25 125/56 (79) 97 04/02/20 05:45 125/56 04/02/20 05:45 125/56 04/02/20 05:30 83/35 04/02/20 05:30 83/35 04/02/20 05:00 86 26 114/50 (71) 96 04/02/20 05:00 114/50 04/02/20 05:00 114/50 04/02/20 04:00 Mechanical Ventilator Mechanical Ventilator 04/02/20 04:00 116/48 04/02/20 04:00 116/48 04/02/20 04:00 80 04/02/20 04:00 87 04/02/20 04:00 99.4 87 24 116/48 (70) 96 04/02/20 03:55 125/52 04/02/20 03:00 88 33 120/55 (76) 97 04/02/20 03:00 120/55 04/02/20 03:00 120/55 04/02/20 02:59 89 24 80 04/02/20 02:30 90 31 127/58 (81) 96 04/02/20 02:30 121/60 04/02/20 02:00 121/60 04/02/20 02:00 121/60 04/02/20 02:00 90 32 121/60 (80) 96 04/02/20 01:00 90 26 126/58 (80) 95 04/02/20 01:00 126/58 04/02/20 01:00 126/58 04/02/20 00:00 Mechanical Ventilator Mechanical Ventilator 04/02/20 00:00 100.5 91 25 124/60 (81) 96 04/02/20 00:00 91 04/02/20 00:00 124/60 04/02/20 00:00 124/60 04/02/20 00:00 80 04/01/20 23:00 89 33 123/50 (74) 97 04/01/20 23:00 123/50 04/01/20 23:00 123/50 04/01/20 22:59 89 24 80 04/01/20 22:00 89 31 114/50 (71) 96 04/01/20 22:00 114/50 04/01/20 22:00 114/50 04/01/20 21:56 100.7 04/01/20 21:00 89 29 119/53 (75) 96 04/01/20 21:00 119/53 04/01/20 21:00 119/53 04/01/20 20:30 88 30 119/48 (71) 95 04/01/20 20:04 88 24 100 04/01/20 20:00 100 04/01/20 20:00 Mechanical Ventilator Mechanical Ventilator 04/01/20 20:00 112/46 04/01/20 20:00 112/46 04/01/20 20:00 100.0 88 28 112/46 (68) 96 04/01/20 20:00 88 04/01/20 19:00 86 27 98/41 (60) 92 04/01/20 19:00 101/40 04/01/20 19:00 101/40 04/01/20 18:56 86 33 93/38 (56) 92 04/01/20 18:45 83 29 89/36 (53) 90 04/01/20 18:43 122/56 04/01/20 18:40 93/38 04/01/20 18:30 87 30 122/56 (78) 93 04/01/20 18:15 86 27 111/51 (71) 94 04/01/20 18:00 86 31 105/47 (66) 93 04/01/20 18:00 111/51 04/01/20 18:00 111/51 04/01/20 17:45 86 25 99/48 (65) 92 04/01/20 17:30 87 28 113/53 (73) 93 04/01/20 17:15 88 26 132/59 (83) 94 04/01/20 17:00 132/59 04/01/20 17:00 132/59 04/01/20 17:00 88 26 132/66 (88) 93 04/01/20 16:45 88 26 128/63 (84) 93 04/01/20 16:30 88 26 134/62 (86) 93 04/01/20 16:15 88 26 133/64 (87) 93 04/01/20 16:00 99.3 88 28 131/65 (87) 93 04/01/20 16:00 Mechanical Ventilator Mechanical Ventilator 04/01/20 16:00 85 04/01/20 16:00 133/64 04/01/20 16:00 133/64 04/01/20 16:00 100 04/01/20 15:45 88 27 129/68 (88) 93 04/01/20 15:30 88 26 127/58 (81) 94 04/01/20 15:15 88 26 134/64 (87) 95 04/01/20 15:02 86 24 100 04/01/20 15:00 86 26 131/68 (89) 94 04/01/20 15:00 134/64 04/01/20 15:00 134/64 04/01/20 14:45 88 26 129/64 (85) 93 04/01/20 14:30 87 27 129/66 (87) 92 04/01/20 14:15 87 27 125/66 (85) 91 04/01/20 14:06 117/60 04/01/20 14:00 99.3 87 26 117/60 (79) 90 04/01/20 14:00 125/66 04/01/20 14:00 125/66 04/01/20 13:45 87 29 117/60 (79) 93 04/01/20 13:30 88 26 116/57 (76) 93 04/01/20 13:00 87 44 127/60 (82) 92 04/01/20 13:00 129/52 04/01/20 13:00 129/52 04/01/20 12:30 86 44 120/58 (78) 91 04/01/20 12:15 87 48 128/63 (84) 93 04/01/20 12:00 98.6 87 48 128/63 (84) 93 04/01/20 12:00 86 04/01/20 12:00 100 04/01/20 12:00 128/63 04/01/20 12:00 128/63 04/01/20 12:00 Mechanical Ventilator Mechanical Ventilator 04/01/20 11:45 86 40 117/61 (79) 90 04/01/20 11:20 127/49 04/01/20 11:15 86 37 127/49 (75) 92 04/01/20 11:15 127/49 04/01/20 11:00 86 37 119/60 (79) 92 04/01/20 11:00 119/60 04/01/20 11:00 119/60 04/01/20 10:45 86 38 115/61 (79) 93 04/01/20 10:42 86 24 100 04/01/20 10:30 86 41 134/46 (75) 95 04/01/20 10:16 90/48 04/01/20 10:15 83 40 94/44 (61) 89 04/01/20 10:15 82/33 04/01/20 10:00 90/36 04/01/20 10:00 83 43 86/45 (59) 92 04/01/20 09:45 83 46 95/49 (64) 94 04/01/20 09:30 84 32 105/57 (73) 96 04/01/20 09:15 84 46 118/50 (72) 96 04/01/20 09:00 83 36 104/41 (62) 93 04/01/20 09:00 118/50 04/01/20 08:45 82 36 91/44 (60) 93 04/01/20 08:30 82 35 93/40 (57) 93 04/01/20 08:15 82 34 100/39 (59) 92 04/01/20 08:00 98.6 81 38 93/41 (58) 92 04/01/20 08:00 100 04/01/20 08:00 81 04/01/20 08:00 Mechanical Ventilator Mechanical Ventilator 04/01/20 08:00 100/39 04/01/20 07:45 81 29 97/47 (64) 91 04/01/20 07:30 97/47 04/01/20 07:30 81 36 103/44 (63) 90 04/01/20 07:20 81 24 100 04/01/20 07:00 108/49 04/01/20 07:00 80 35 108/49 (68) 90 04/01/20 06:33 98/46 04/01/20 06:30 81 35 105/47 (66) 92 04/01/20 06:00 98/58 04/01/20 06:00 80 32 98/43 (61) 93 04/01/20 05:30 80 27 98/53 (68) 93 04/01/20 05:00 80 29 108/44 (65) 95 04/01/20 05:00 108/44 04/01/20 04:30 81 24 111/50 (70) 97 04/01/20 04:00 100 04/01/20 04:00 Mechanical Ventilator Mechanical Ventilator 04/01/20 04:00 98.1 85 29 100/56 (71) 94 04/01/20 04:00 79 04/01/20 04:00 100/56 04/01/20 03:30 79 26 110/56 (74) 93 04/01/20 03:21 78 24 100 04/01/20 03:00 79 25 117/67 (84) 93 04/01/20 03:00 117/67 04/01/20 02:35 119/63 04/01/20 02:34 119/63 04/01/20 02:30 79 27 119/63 (81) 92 04/01/20 02:00 119/64 04/01/20 02:00 78 25 119/64 (82) 93 04/01/20 01:30 77 26 127/60 (82) 96 04/01/20 01:00 124/53 04/01/20 01:00 77 25 124/53 (76) 94 04/01/20 00:30 78 24 125/69 (87) 92 04/01/20 00:00 76 04/01/20 00:00 122/60 04/01/20 00:00 100 04/01/20 00:00 Mechanical Ventilator Mechanical Ventilator 04/01/20 00:00 97.5 77 24 122/60 (80) 90 03/31/20 23:30 76 25 125/66 (85) 91 03/31/20 23:15 89 23 100 03/31/20 23:00 77 25 126/54 (78) 92 03/31/20 23:00 126/54 03/31/20 22:30 77 24 135/64 (87) 90 03/31/20 22:27 142/62 03/31/20 22:00 143/52 03/31/20 22:00 78 24 143/52 (82) 92 03/31/20 21:30 78 25 122/76 (91) 90 03/31/20 21:00 136/82 03/31/20 21:00 79 27 136/82 (100) 88 03/31/20 20:30 81 27 128/66 (86) 90 03/31/20 20:00 98.7 82 25 135/68 (90) 90 03/31/20 20:00 100 03/31/20 20:00 Mechanical Ventilator Mechanical Ventilator 03/31/20 20:00 135/68 03/31/20 20:00 81 03/31/20 19:30 81 24 100 03/31/20 19:30 82 26 112/69 (83) 90 03/31/20 19:00 81 26 102/54 (70) 90 03/31/20 18:30 80 24 107/57 (74) 90 03/31/20 18:26 101/51 03/31/20 18:00 79 24 96/47 (63) 83 03/31/20 17:30 79 25 93/49 (64) 86 03/31/20 17:14 100 03/31/20 17:00 78 24 100/59 (73) 89 03/31/20 16:30 80 24 96/54 (68) 89 03/31/20 16:00 Mechanical Ventilator Mechanical Ventilator 03/31/20 16:00 100 03/31/20 16:00 97.5 80 24 113/54 (73) 92 03/31/20 16:00 80 03/31/20 15:30 80 24 106/54 (71) 95 03/31/20 15:19 80 24 100 03/31/20 15:14 110/46 03/31/20 15:00 80 24 110/46 (67) 95 03/31/20 14:30 80 24 111/58 (75) 95 03/31/20 14:00 81 24 114/48 (70) 90 03/31/20 13:30 80 27 111/52 (71) 91 03/31/20 13:00 79 24 113/52 (72) 90 03/31/20 12:55 100 03/31/20 12:30 80 24 110/53 (72) 90 03/31/20 12:01 100 03/31/20 12:00 79 03/31/20 12:00 Mechanical Ventilator Mechanical Ventilator 03/31/20 12:00 97.9 79 24 111/59 (76) 92 03/31/20 11:30 80 24 116/48 (70) 90 03/31/20 11:26 111/57 03/31/20 11:19 80 24 100 03/31/20 11:00 80 24 114/64 (81) 91 03/31/20 10:30 81 24 109/55 (73) 92 03/31/20 10:00 81 24 106/46 (66) 93 03/31/20 09:30 82 24 97/43 (61) 93 03/31/20 09:00 80 24 89/39 (56) 92 03/31/20 08:30 81 24 87/38 (54) 91 03/31/20 08:07 90/42 03/31/20 08:00 79 03/31/20 08:00 98.2 79 24 90/42 (58) 94 03/31/20 08:00 100 03/31/20 08:00 Mechanical Ventilator Mechanical Ventilator Intake and Output 04/01/20 04/02/20 19:00 07:00 Intake Total 2243.342 ml 1884.714 ml Output Total 360 ml 340 ml Balance 1883.342 ml 1544.714 ml Free Water 30 ml IV Total 1863.342 ml 1844.714 ml Tube Feeding 350 ml 40 ml Output Urine Total 360 ml 340 ml # Bowel Movements 3 Labs Test 03/30/20 09:10 03/31/20 07:55 03/31/20 18:30 04/01/20 07:00 White Blood Count 26.8 K/UL (4.8-10.8) 26.7 K/UL (4.8-10.8) 23.1 K/UL (4.8-10.8) Red Blood Count 2.62 M/UL (4.20-5.40) 2.54 M/UL (4.20-5.40) 2.58 M/UL (4.20-5.40) Hemoglobin 9.3 G/DL (12.0-16.0) 9.1 G/DL (12.0-16.0) 9.2 G/DL (12.0-16.0) Hematocrit 28.2 % (37.0-47.0) 27.0 % (37.0-47.0) 27.2 % (37.0-47.0) Mean Corpuscular Volume 107 FL (80-99) 106 FL (80-99) 106 FL (80-99) Mean Corpuscular Hemoglobin 35.4 PG (27.0-31.0) 35.9 PG (27.0-31.0) 35.9 PG (27.0-31.0) Mean Corpuscular Hemoglobin Concent 33.0 G/DL (32.0-36.0) 33.8 G/DL (32.0-36.0) 34.0 G/DL (32.0-36.0) Red Cell Distribution Width 21.6 % (11.6-14.8) 22.8 % (11.6-14.8) 23.1 % (11.6-14.8) Platelet Count 68 K/UL (150-450) 115 K/UL (150-450) 116 K/UL (150-450) Mean Platelet Volume 8.6 FL (6.5-10.1) 8.8 FL (6.5-10.1) 9.5 FL (6.5-10.1) Neutrophils (%) (Auto) % (45.0-75.0) % (45.0-75.0) % (45.0-75.0) Lymphocytes (%) (Auto) % (20.0-45.0) % (20.0-45.0) % (20.0-45.0) Monocytes (%) (Auto) % (1.0-10.0) % (1.0-10.0) % (1.0-10.0) Eosinophils (%) (Auto) % (0.0-3.0) % (0.0-3.0) % (0.0-3.0) Basophils (%) (Auto) % (0.0-2.0) % (0.0-2.0) % (0.0-2.0) Differential Total Cells Counted 100 100 100 Neutrophils % (Manual) 81 % (45-75) 88 % (45-75) 88 % (45-75) Lymphocytes % (Manual) 10 % (20-45) 2 % (20-45) 6 % (20-45) Monocytes % (Manual) 5 % (1-10) 7 % (1-10) 5 % (1-10) Eosinophils % (Manual) 2 % (0-3) 3 % (0-3) 1 % (0-3) Basophils % (Manual) 0 % (0-2) 0 % (0-2) 0 % (0-2) Band Neutrophils 2 % (0-8) 0 % (0-8) 0 % (0-8) Nucleated Red Blood Cells 3 /100 WBC 2 /100 WBC Platelet Estimate Decreased Decreased Decreased Platelet Morphology Normal Normal Normal Hypochromasia 2+ 1+ 1+ Anisocytosis 3+ 2+ 2+ Macrocytosis 1+ 1+ 1+ Spherocytes 1+ Sodium Level 142 MMOL/L (136-145) 136 MMOL/L (136-145) 132 MMOL/L (136-145) Potassium Level 5.0 MMOL/L (3.5-5.1) 5.3 MMOL/L (3.5-5.1) 5.7 MMOL/L (3.5-5.1) Chloride Level 103 MMOL/L (98-107) 98 MMOL/L (98-107) 94 MMOL/L (98-107) Carbon Dioxide Level 40 MMOL/L (21-32) 37 MMOL/L (21-32) 39 MMOL/L (21-32) Anion Gap -1 mmol/L (5-15) 1 mmol/L (5-15) -1 mmol/L (5-15) Blood Urea Nitrogen 53 mg/dL (7-18) 59 mg/dL (7-18) 65 mg/dL (7-18) Creatinine 0.9 MG/DL (0.55-1.30) 0.8 MG/DL (0.55-1.30) 0.8 MG/DL (0.55-1.30) Estimat Glomerular Filtration Rate > 60 mL/min (>60) > 60 mL/min (>60) > 60 mL/min (>60) Glucose Level 171 MG/DL (74-106) 151 MG/DL (74-106) 72 MG/DL (74-106) Calcium Level 9.3 MG/DL (8.5-10.1) 9.1 MG/DL (8.5-10.1) 9.0 MG/DL (8.5-10.1) Phosphorus Level 4.2 MG/DL (2.5-4.9) 4.5 MG/DL (2.5-4.9) 5.2 MG/DL (2.5-4.9) Magnesium Level 2.6 MG/DL (1.8-2.4) 2.6 MG/DL (1.8-2.4) 2.7 MG/DL (1.8-2.4) Total Bilirubin 1.7 MG/DL (0.2-1.0) 1.7 MG/DL (0.2-1.0) 1.6 MG/DL (0.2-1.0) Direct Bilirubin 0.9 MG/DL (0.0-0.3) 1.2 MG/DL (0.0-0.3) 0.8 MG/DL (0.0-0.3) Aspartate Amino Transf (AST/SGOT) 535 U/L (15-37) 654 U/L (15-37) 744 U/L (15-37) Alanine Aminotransferase (ALT/SGPT) 281 U/L (12-78) 310 U/L (12-78) 314 U/L (12-78) Alkaline Phosphatase 343 U/L (46-116) 391 U/L (46-116) 408 U/L (46-116) Total Protein 5.9 G/DL (6.4-8.2) 5.8 G/DL (6.4-8.2) 6.1 G/DL (6.4-8.2) Albumin 1.9 G/DL (3.4-5.0) 2.1 G/DL (3.4-5.0) 2.1 G/DL (3.4-5.0) Globulin 4.0 g/dL 3.7 g/dL 4.0 g/dL Albumin/Globulin Ratio 0.5 (1.0-2.7) 0.6 (1.0-2.7) 0.5 (1.0-2.7) Polychromasia 1+ 1+ Uric Acid 6.5 MG/DL (2.6-7.2) 7.6 MG/DL (2.6-7.2) Ammonia 106 umol/L (11-32) 104 umol/L (11-32) Total Creatine Kinase 81 U/L (26-308) 127 U/L (26-308) C-Reactive Protein, Quantitative 1.7 mg/dL (0.00-0.90) Arterial Blood pH 7.496 (7.350-7.450) Arterial Blood Partial Pressure CO2 44.9 mmHg (35.0-45.0) Arterial Blood Partial Pressure O2 97.1 mmHg (75.0-100.0) Arterial Blood HCO3 33.9 mmol/L (22.0-26.0) Arterial Blood Oxygen Saturation 97.6 % (95-100) Arterial Blood Base Excess 9.7 (-2-2) Joaquin Test Positive Gamma Glutamyl Transpeptidase 746 U/L (5-85) Test 04/01/20 15:35 Fibrinogen 195 mg/dL (200-400) D-Dimer 5.44 mg/L FEU (0.00-0.49) Height (Feet): 5 Height (Inches): 1.00 Weight (Pounds): 224 Objective Physical Exam: Vitals: reviewed General: NAD HEENT: nc, at++ngt Neck: supple Chest: crackles b/l, mech breath sounds ++intubated Cardiovascular: RRR, no s3, s4 EXT ++ Significant edema and erythema bilateral lower extremity, patient also has blistering on both feet Neurologic: sedated Skin: other - As above Brett Mcclain MD April 02, 2020 07:33
--- NOTE | 2020-04-02 07:39 | General Progress Note ---
Assessment/Plan Status: progressing, unchanged Assessment/Plan: macrocytic anemia elevated LFTS cirrhosis cellulitis elevated Ammonia levels respiratory distress>>> now failure COVID positive pna NGTF abd us>> reordered>>>>pending Xifaxan and lactulose monitor ammonia level fu stool ob>>>neg GI procedures if needed abx per id hepatitis panel>>>>>positive for hep C>>> needs out patient fu poor prognosis will fu Subjective ROS Limited/Unobtainable: No Allergies: Coded Allergies: No Known Allergies (Unverified , 02/29/20) Objective Last 24 Hour Vital Signs Date Time Temp Pulse Resp B/P (MAP) Pulse Ox O2 Delivery O2 Flow Rate FiO2 04/02/20 07:00 91 24 118/56 (76) 96 04/02/20 07:00 118/56 04/02/20 07:00 118/56 04/02/20 06:00 125/56 04/02/20 06:00 125/56 04/02/20 06:00 93 25 125/56 (79) 97 04/02/20 05:45 125/56 04/02/20 05:45 125/56 04/02/20 05:30 83/35 04/02/20 05:30 83/35 04/02/20 05:00 86 26 114/50 (71) 96 04/02/20 05:00 114/50 04/02/20 05:00 114/50 04/02/20 04:00 Mechanical Ventilator Mechanical Ventilator 04/02/20 04:00 116/48 04/02/20 04:00 116/48 04/02/20 04:00 80 04/02/20 04:00 87 04/02/20 04:00 99.4 87 24 116/48 (70) 96 04/02/20 03:55 125/52 04/02/20 03:00 88 33 120/55 (76) 97 04/02/20 03:00 120/55 04/02/20 03:00 120/55 04/02/20 02:59 89 24 80 04/02/20 02:30 90 31 127/58 (81) 96 04/02/20 02:30 121/60 04/02/20 02:00 121/60 04/02/20 02:00 121/60 5/17/20 02:00 90 32 121/60 (80) 96 04/02/20 01:00 90 26 126/58 (80) 95 04/02/20 01:00 126/58 04/02/20 01:00 126/58 04/02/20 00:00 Mechanical Ventilator Mechanical Ventilator 04/02/20 00:00 100.5 91 25 124/60 (81) 96 04/02/20 00:00 91 04/02/20 00:00 124/60 04/02/20 00:00 124/60 04/02/20 00:00 80 04/01/20 23:00 89 33 123/50 (74) 97 04/01/20 23:00 123/50 04/01/20 23:00 123/50 04/01/20 22:59 89 24 80 04/01/20 22:00 89 31 114/50 (71) 96 04/01/20 22:00 114/50 04/01/20 22:00 114/50 04/01/20 21:56 100.7 04/01/20 21:00 89 29 119/53 (75) 96 04/01/20 21:00 119/53 04/01/20 21:00 119/53 04/01/20 20:30 88 30 119/48 (71) 95 04/01/20 20:04 88 24 100 04/01/20 20:00 100 04/01/20 20:00 Mechanical Ventilator Mechanical Ventilator 04/01/20 20:00 112/46 04/01/20 20:00 112/46 04/01/20 20:00 100.0 88 28 112/46 (68) 96 04/01/20 20:00 88 04/01/20 19:00 86 27 98/41 (60) 92 04/01/20 19:00 101/40 04/01/20 19:00 101/40 04/01/20 18:56 86 33 93/38 (56) 92 04/01/20 18:45 83 29 89/36 (53) 90 04/01/20 18:43 122/56 04/01/20 18:40 93/38 04/01/20 18:30 87 30 122/56 (78) 93 04/01/20 18:15 86 27 111/51 (71) 94 04/01/20 18:00 86 31 105/47 (66) 93 5/16/20 18:00 111/51 04/01/20 18:00 111/51 04/01/20 17:45 86 25 99/48 (65) 92 04/01/20 17:30 87 28 113/53 (73) 93 04/01/20 17:15 88 26 132/59 (83) 94 04/01/20 17:00 132/59 04/01/20 17:00 132/59 04/01/20 17:00 88 26 132/66 (88) 93 04/01/20 16:45 88 26 128/63 (84) 93 04/01/20 16:30 88 26 134/62 (86) 93 04/01/20 16:15 88 26 133/64 (87) 93 04/01/20 16:00 99.3 88 28 131/65 (87) 93 04/01/20 16:00 Mechanical Ventilator Mechanical Ventilator 04/01/20 16:00 85 04/01/20 16:00 133/64 04/01/20 16:00 133/64 04/01/20 16:00 100 04/01/20 15:45 88 27 129/68 (88) 93 04/01/20 15:30 88 26 127/58 (81) 94 04/01/20 15:15 88 26 134/64 (87) 95 04/01/20 15:02 86 24 100 04/01/20 15:00 86 26 131/68 (89) 94 04/01/20 15:00 134/64 04/01/20 15:00 134/64 04/01/20 14:45 88 26 129/64 (85) 93 04/01/20 14:30 87 27 129/66 (87) 92 04/01/20 14:15 87 27 125/66 (85) 91 04/01/20 14:06 117/60 04/01/20 14:00 99.3 87 26 117/60 (79) 90 04/01/20 14:00 125/66 04/01/20 14:00 125/66 04/01/20 13:45 87 29 117/60 (79) 93 04/01/20 13:30 88 26 116/57 (76) 93 04/01/20 13:00 87 44 127/60 (82) 92 04/01/20 13:00 129/52 04/01/20 13:00 129/52 04/01/20 12:30 86 44 120/58 (78) 91 04/01/20 12:15 87 48 128/63 (84) 93 04/01/20 12:00 98.6 87 48 128/63 (84) 93 04/01/20 12:00 86 04/01/20 12:00 100 04/01/20 12:00 128/63 04/01/20 12:00 128/63 04/01/20 12:00 Mechanical Ventilator Mechanical Ventilator 04/01/20 11:45 86 40 117/61 (79) 90 04/01/20 11:20 127/49 04/01/20 11:15 86 37 127/49 (75) 92 04/01/20 11:15 127/49 04/01/20 11:00 86 37 119/60 (79) 92 04/01/20 11:00 119/60 04/01/20 11:00 119/60 04/01/20 10:45 86 38 115/61 (79) 93 04/01/20 10:42 86 24 100 04/01/20 10:30 86 41 134/46 (75) 95 04/01/20 10:16 90/48 04/01/20 10:15 83 40 94/44 (61) 89 04/01/20 10:15 82/33 04/01/20 10:00 90/36 04/01/20 10:00 83 43 86/45 (59) 92 04/01/20 09:45 83 46 95/49 (64) 94 04/01/20 09:30 84 32 105/57 (73) 96 04/01/20 09:15 84 46 118/50 (72) 96 04/01/20 09:00 83 36 104/41 (62) 93 04/01/20 09:00 118/50 04/01/20 08:45 82 36 91/44 (60) 93 04/01/20 08:30 82 35 93/40 (57) 93 04/01/20 08:15 82 34 100/39 (59) 92 04/01/20 08:00 98.6 81 38 93/41 (58) 92 04/01/20 08:00 100 04/01/20 08:00 81 04/01/20 08:00 Mechanical Ventilator Mechanical Ventilator 04/01/20 08:00 100/39 04/01/20 07:45 81 29 97/47 (64 91 Intake and Output 04/01/20 04/02/20 19:00 07:00 Intake Total 2243.342 ml 1884.714 ml Output Total 360 ml 340 ml Balance 1883.342 ml 1544.714 ml Free Water 30 ml IV Total 1863.342 ml 1844.714 ml Tube Feeding 350 ml 40 ml Output Urine Total 360 ml 340 ml # Bowel Movements 3 Laboratory Tests 04/01/20 15:35: Fibrinogen 195L, Fibrin Degradation Products, Quant [Pending], D-Dimer 5.44H, [id number]-Glycoprotein I IgG Ab [Pending], Cmhf-glhc-7-Glycoprotein I IgA Ab [ Pending], Rggj-fiim-5-Glycoprotein I IgM Ab [Pending], Anti-Cardiolipin IgG Antibody [Pending], Anti-Cardiolipin IgA Antibody [Pending], Anti-Cardiolipin IgM Antibody [Pending] Height (Feet): 5 Height (Inches): 1.00 Weight (Pounds): 224 General Appearance: lethargic EENT: normal ENT inspection Neck: supple Cardiovascular: tachycardia Respiratory/Chest: decreased breath sounds Abdomen: soft, hypoactive bowel sounds Extremities: non-tender Tam Spicer MD April 02, 2020 07:39
[2020-04-02 08:28] LABS: HEMATOCRIT 23.3 % (37.0-47.0); HEMOGLOBIN 8.1 G/DL (12.0-16.0); MEAN CORPUSCULAR VOLUME 107 FL (80-99); PLATELET COUNT 108 K/UL (150-450); RED BLOOD COUNT 2.18 M/UL (4.20-5.40); RED CELL DISTRIBUTION WIDTH 23.8 % (11.6-14.8); WHITE BLOOD COUNT 23.5 K/UL (4.8-10.8)
[2020-04-02 08:52] LABS: CREATINE KINASE 126 U/L (26-308); PHOSPHORUS 5.3 MG/DL (2.5-4.9)
[2020-04-02 08:57] LABS: ALANINE AMINOTRANSFERASE 275 U/L (12-78); ALBUMIN 2.4 G/DL (3.4-5.0); ALBUMIN/GLOBULIN RATIO 0.7 (1.0-2.7); ALKALINE PHOSPHATASE 378 U/L (46-116); ANION GAP 3 mmol/L (5-15); ASPARTATE AMINO TRANSFERASE 726 U/L (15-37); BLOOD UREA NITROGEN 69 mg/dL (7-18); CALCIUM 8.8 MG/DL (8.5-10.1); CARBON DIOXIDE 35 MMOL/L (21-32); CHLORIDE 91 MMOL/L (98-107); CREATININE 0.8 MG/DL (0.55-1.30); POTASSIUM 5.2 MMOL/L (3.5-5.1); SODIUM 129 MMOL/L (136-145)
[2020-04-02] MEDS: Midodrine 10mg tab NG SCH ×3 (09:00→18:00)
[2020-04-02] MEDS: Fluconazole 100mg tab NG SCH (09:32)
--- NOTE | 2020-04-02 10:58 | Infectious Diseases Prog Note ---
Assessment/Plan Assessment/Plan IMPRESSION: 1. Bilateral leg cellulitis,Pseudomonas in culture 2. Anemia. 3. Hypoxemic respiratory failure 4. Thrombocytopenia. 5. Homeless 6. Morbid obesity. 7. Cirrhosis 8. COVID19 pneumonia Positive03/07-03/12, 03/24, 03/27 9. Hepatitis C 10.septic shock 11. Pneumonia with Pseudomonas 12. DM & hyperglycemia 13. Diarrhea, C. difficile negative 14. Leukocytosis 15. Severe encephalopathy RECOMMENDATION: Will f/u COVID19 test Finished Plaquenil ,Actemra & Ivermectin continue Meropenem & Fluconazole repeat CXR Taper steroids Poor prognosis Repeat COVID19 test Case was D/W RN Subjective ROS Limited/Unobtainable: Yes Constitutional: Reports: fever, other - Ir=828.7 last night Cardiovascular: Reports: other - on Levohed & Dopamin Gastrointestinal/Abdominal: Reports: other - high residual Allergies: Coded Allergies: No Known Allergies (Unverified , 02/29/20) Objective Vital Signs Last 24 Hour Vital Signs Date Time Temp Pulse Resp B/P (MAP) Pulse Ox O2 Delivery O2 Flow Rate FiO2 04/02/20 10:50 112/56 04/02/20 10:49 112/56 04/02/20 10:00 110/52 04/02/20 10:00 110/52 04/02/20 10:00 90 24 110/52 (71) 95 04/02/20 09:30 90 25 112/51 (71) 96 04/02/20 09:09 90 24 80 04/02/20 09:00 116/50 04/02/20 09:00 116/50 04/02/20 09:00 99.3 90 25 116/50 (72) 96 04/02/20 08:30 90 26 113/51 (71) 95 04/02/20 08:00 Mechanical Ventilator Mechanical Ventilator 04/02/20 08:00 80 04/02/20 08:00 90 24 114/53 (73) 95 04/02/20 08:00 114/53 04/02/20 08:00 114/53 04/02/20 08:00 82 04/02/20 07:30 91 27 117/55 (75) 95 04/02/20 07:00 91 24 118/56 (76) 96 04/02/20 07:00 118/56 04/02/20 07:00 118/56 04/02/20 06:56 92 24 80 04/02/20 06:00 125/56 04/02/20 06:00 125/56 04/02/20 06:00 93 25 125/56 (79) 97 04/02/20 05:45 125/56 04/02/20 05:45 125/56 04/02/20 05:30 83/35 04/02/20 05:30 83/35 04/02/20 05:00 86 26 114/50 (71) 96 04/02/20 05:00 114/50 04/02/20 05:00 114/50 04/02/20 04:00 Mechanical Ventilator Mechanical Ventilator 04/02/20 04:00 116/48 04/02/20 04:00 116/48 04/02/20 04:00 80 04/02/20 04:00 87 04/02/20 04:00 99.4 87 24 116/48 (70) 96 04/02/20 03:55 125/52 04/02/20 03:00 88 33 120/55 (76) 97 04/02/20 03:00 120/55 04/02/20 03:00 120/55 04/02/20 02:59 89 24 80 04/02/20 02:30 90 31 127/58 (81) 96 04/02/20 02:30 121/60 04/02/20 02:00 121/60 04/02/20 02:00 121/60 04/02/20 02:00 90 32 121/60 (80) 96 04/02/20 01:00 90 26 126/58 (80) 95 04/02/20 01:00 126/58 04/02/20 01:00 126/58 04/02/20 00:00 Mechanical Ventilator Mechanical Ventilator 04/02/20 00:00 100.5 91 25 124/60 (81) 96 04/02/20 00:00 91 04/02/20 00:00 124/60 04/02/20 00:00 124/60 04/02/20 00:00 80 04/01/20 23:00 89 33 123/50 (74) 97 04/01/20 23:00 123/50 04/01/20 23:00 123/50 5/16/20 22:59 89 24 80 04/01/20 22:00 89 31 114/50 (71) 96 04/01/20 22:00 114/50 04/01/20 22:00 114/50 04/01/20 21:56 100.7 04/01/20 21:00 89 29 119/53 (75) 96 04/01/20 21:00 119/53 04/01/20 21:00 119/53 04/01/20 20:30 88 30 119/48 (71) 95 04/01/20 20:04 88 24 100 04/01/20 20:00 100 04/01/20 20:00 Mechanical Ventilator Mechanical Ventilator 04/01/20 20:00 112/46 04/01/20 20:00 112/46 04/01/20 20:00 100.0 88 28 112/46 (68) 96 04/01/20 20:00 88 04/01/20 19:00 86 27 98/41 (60) 92 04/01/20 19:00 101/40 04/01/20 19:00 101/40 04/01/20 18:56 86 33 93/38 (56) 92 04/01/20 18:45 83 29 89/36 (53) 90 04/01/20 18:43 122/56 04/01/20 18:40 93/38 04/01/20 18:30 87 30 122/56 (78) 93 04/01/20 18:15 86 27 111/51 (71) 94 04/01/20 18:00 86 31 105/47 (66) 93 04/01/20 18:00 111/51 04/01/20 18:00 111/51 04/01/20 17:45 86 25 99/48 (65) 92 04/01/20 17:30 87 28 113/53 (73) 93 04/01/20 17:15 88 26 132/59 (83) 94 04/01/20 17:00 132/59 04/01/20 17:00 132/59 04/01/20 17:00 88 26 132/66 (88) 93 04/01/20 16:45 88 26 128/63 (84) 93 04/01/20 16:30 88 26 134/62 (86) 93 04/01/20 16:15 88 26 133/64 (87) 93 04/01/20 16:00 99.3 88 28 131/65 (87) 93 04/01/20 16:00 Mechanical Ventilator Mechanical Ventilator 04/01/20 16:00 85 04/01/20 16:00 133/64 04/01/20 16:00 133/64 04/01/20 16:00 100 04/01/20 15:45 88 27 129/68 (88) 93 04/01/20 15:30 88 26 127/58 (81) 94 04/01/20 15:15 88 26 134/64 (87) 95 04/01/20 15:02 86 24 100 04/01/20 15:00 86 26 131/68 (89) 94 04/01/20 15:00 134/64 04/01/20 15:00 134/64 04/01/20 14:45 88 26 129/64 (85) 93 04/01/20 14:30 87 27 129/66 (87) 92 04/01/20 14:15 87 27 125/66 (85) 91 04/01/20 14:06 117/60 04/01/20 14:00 99.3 87 26 117/60 (79) 90 04/01/20 14:00 125/66 04/01/20 14:00 125/66 04/01/20 13:45 87 29 117/60 (79) 93 04/01/20 13:30 88 26 116/57 (76) 93 04/01/20 13:00 87 44 127/60 (82) 92 04/01/20 13:00 129/52 04/01/20 13:00 129/52 04/01/20 12:30 86 44 120/58 (78) 91 04/01/20 12:15 87 48 128/63 (84) 93 04/01/20 12:00 98.6 87 48 128/63 (84) 93 04/01/20 12:00 86 04/01/20 12:00 100 04/01/20 12:00 128/63 04/01/20 12:00 128/63 04/01/20 12:00 Mechanical Ventilator Mechanical Ventilator 04/01/20 11:45 86 40 117/61 (79) 90 04/01/20 11:20 127/49 04/01/20 11:15 86 37 127/49 (75) 92 04/01/20 11:15 127/49 04/01/20 11:00 86 37 119/60 (79) 92 04/01/20 11:00 119/60 04/01/20 11:00 119/60 Height (Feet): 5 Height (Inches): 1.00 Weight (Pounds): 224 HEENT: other - orally intubated Respiratory/Chest: other - on Ventilator, Fio2=80% Cardiovascular: normal rate, other - PICC line Extremities: other Neurologic/Psychiatric: unresponsiveness Laboratory Tests Test 04/01/20 15:35 04/02/20 06:30 Fibrinogen 195 mg/dL (200-400) L Fibrin Degradation Products, Quant Pending D-Dimer 5.44 mg/L FEU (0.00-0.49) H Dbgv-hlez-7-Glycoprotein I IgG Ab Pending Dhws-qdhi-4-Glycoprotein I IgA Ab Pending Eczo-qilh-5-Glycoprotein I IgM Ab Pending Anti-Cardiolipin IgG Antibody Pending Anti-Cardiolipin IgA Antibody Pending Anti-Cardiolipin IgM Antibody Pending White Blood Count 23.5 K/UL (4.8-10.8) *H Red Blood Count 2.18 M/UL (4.20-5.40) L Hemoglobin 8.1 G/DL (12.0-16.0) L Hematocrit 23.3 % (37.0-47.0) L Mean Corpuscular Volume 107 FL (80-99) H Mean Corpuscular Hemoglobin 37.0 PG (27.0-31.0) H Mean Corpuscular Hemoglobin Concent 34.6 G/DL (32.0-36.0) Red Cell Distribution Width 23.8 % (11.6-14.8) H Platelet Count 108 K/UL (150-450) L Mean Platelet Volume 9.3 FL (6.5-10.1) Neutrophils (%) (Auto) % (45.0-75.0) Lymphocytes (%) (Auto) % (20.0-45.0) Monocytes (%) (Auto) % (1.0-10.0) Eosinophils (%) (Auto) % (0.0-3.0) Basophils (%) (Auto) % (0.0-2.0) Differential Total Cells Counted 100 Neutrophils % (Manual) 75 % (45-75) Lymphocytes % (Manual) 10 % (20-45) L Monocytes % (Manual) 10 % (1-10) Eosinophils % (Manual) 3 % (0-3) Basophils % (Manual) 0 % (0-2) Band Neutrophils 2 % (0-8) Nucleated Red Blood Cells 5 /100 WBC Platelet Estimate Decreased L Platelet Morphology Normal Polychromasia 1+ Hypochromasia 1+ Anisocytosis 3+ Macrocytosis 2+ Sodium Level 129 MMOL/L (136-145) L Potassium Level 5.2 MMOL/L (3.5-5.1) H Chloride Level 91 MMOL/L (98-107) L Carbon Dioxide Level 35 MMOL/L (21-32) H Anion Gap 3 mmol/L (5-15) L Blood Urea Nitrogen 69 mg/dL (7-18) H Creatinine 0.8 MG/DL (0.55-1.30) Estimat Glomerular Filtration Rate > 60 mL/min (>60) Glucose Level 123 MG/DL (74-106) H Calcium Level 8.8 MG/DL (8.5-10.1) Phosphorus Level 5.3 MG/DL (2.5-4.9) H Magnesium Level 2.7 MG/DL (1.8-2.4) H Total Bilirubin 2.0 MG/DL (0.2-1.0) H Direct Bilirubin 1.0 MG/DL (0.0-0.3) H Aspartate Amino Transf (AST/SGOT) 726 U/L (15-37) H Alanine Aminotransferase (ALT/SGPT) 275 U/L (12-78) H Alkaline Phosphatase 378 U/L (46-116) H Ammonia 80 umol/L (11-32) H Total Creatine Kinase 126 U/L (26-308) C-Reactive Protein, Quantitative 1.5 mg/dL (0.00-0.90) H Pro-B-Type Natriuretic Peptide 2840 pg/mL (0-125) H Total Protein 6.0 G/DL (6.4-8.2) L Albumin 2.4 G/DL (3.4-5.0) L Globulin 3.6 g/dL Albumin/Globulin Ratio 0.7 (1.0-2.7) L Current Medications Medications (Trade) Dose Ordered Sig/Dolores Route PRN Reason Start Time Stop Time Status Last Admin Dose Admin Acetaminophen (Tylenol) 650 mg Q4H PRN NG Temp >100.5 04/01/20 22:00 05/01/20 21:59 Acetaminophen (Tylenol) 650 mg Q4H PRN ORAL Mild Pain (Pain Scale 1-3) 03/13/20 14:53 04/12/20 14:52 04/01/20 21:26 Chlorhexidine Gluconate (Lucretia-Hex 2%) 1 applic DAILY@2000 TOPIC 03/13/20 20:00 06/11/20 19:59 04/01/20 20:01 Dextrose 1,000 ml @ 100 mls/hr Q10H IV 04/01/20 12:09 05/01/20 12:08 04/02/20 09:32 Dextrose (Dextrose 50%) 25 ml Q30M PRN IV Hypoglycemia 03/28/20 06:45 06/26/20 06:44 Dextrose (Dextrose 50%) 50 ml Q30M PRN IV Hypoglycemia 03/28/20 06:45 06/26/20 06:44 04/01/20 08:57 Dopamine HCl/ Dextrose 250 ml @ 0 mls/hr Q24H IV 03/16/20 19:30 06/14/20 19:29 04/02/20 10:50 Fentanyl Citrate 1000 mcg/Sodium Chloride 100 ml @ 0 mls/hr Q24H IV 03/27/20 22:30 04/03/20 22:29 03/27/20 22:56 Fluconazole (Diflucan) 200 mg DAILY NG 03/31/20 11:00 04/07/20 10:59 04/02/20 09:32 Hydralazine HCl (Apresoline) 10 mg Q6H PRN IV For High Blood Pressure 03/24/20 16:45 06/22/20 16:44 Insulin Aspart (NovoLOG) EVERY 4 HOURS SUBQ 03/26/20 09:00 06/24/20 08:59 04/02/20 05:00 Lactulose (Cephulac) 40 gm Q8HR ORAL 04/01/20 14:00 04/30/20 17:59 04/02/20 05:47 Levothyroxine Sodium (Synthroid) 50 mcg DAILY IV 03/21/20 09:00 04/17/20 11:59 04/02/20 09:32 Meropenem 1 gm/ Sodium Chloride 55 ml @ 110 mls/hr Q8HR IVPB 03/29/20 14:00 04/07/20 13:59 04/02/20 05:47 Midodrine (Pro-Amatine) 10 mg THREE TIMES A DAY NG 03/27/20 09:00 06/20/20 12:29 04/01/20 17:20 Norepinephrine Bitartrate 4 mg/ Dextrose 250 ml @ 0 mls/hr Q24H PRN IV For hypotension 03/25/20 16:30 04/24/20 16:29 04/02/20 10:49 Vasopressin 100 units/Sodium Chloride 100 ml @ 0 mls/hr Q24H PRN IV For hypotension 03/16/20 11:00 04/15/20 10:59 03/19/20 18:03 Jonathon Shah MD April 02, 2020 10:58
--- NOTE | 2020-04-02 11:39 | Nephrology Progress Note ---
Assessment/Plan Problem List: (1) Respiratory failure with hypoxia (2) Electrolyte imbalance Assessment: Hyponatremia resolved -hyperkalemia resolved (3) COVID-19 (4) Cellulitis (5) Hypothyroid Assessment Hyponatremia. Serum sodium started drifting down from March 16. Hyperkalemia. Septic shock. Acute respiratory failure. Respiratory failure and COVID pneumonia. History of cirrhosis/splenomegaly Anemia Bilateral lower extremity cellulitis Plan EEG: This is a severely abnormal EEG characterized by very low amplitude, slow activity with no reactivity to external stimulation. COMMENT: The study is consistent with severe encephalopathy. Clinical correlation is recommended. April 02: Blood pressure is maintained on pressors Remains unresponsive Today's lab reviewed 3% saline ordered EEG is severely abnormal Remains full code however prognosis is poor Discussed with DAO Huber ED April 01: Patient became hypoglycemic so long-acting insulin is held Potassium is 5.7 so albumin and Lasix in addition to Kayexalate is ordered Increase D5W to 100 cc an hour Blood sugar management per Endo Discussed with DAO Gabriel EEG ordered results pending Overall prognosis poor March 31: Increase lactulose dose 1 dose of Kayexalate Continue to monitor liver enzymes Patient unresponsive despite discontinuation of all mind altering medications Neuro eval? March 30 Electrolytes and bicarb improved We will cut down D5W IV fluid Blood sugar better controlled Liver enzymes still remains elevated Discussed with DAO March 29: Worsening leukocytosis Serum sodium lowering Blood sugar still elevated need insulin adjustment Continue to monitor electrolytes and renal parameters Continue per pulmonary Discussed with DAO Sarkar March 28: Serum sodium down to 160 Continue with D5W Continue per pulmonary March 27: Serum sodium vahe Patient retaining CO2 Will start D5W IV fluid Hold Diamox for now until further comments from systems consultant Continue to monitor electrolytes Midodrine dose increased March 26: Remains unstable. Lasix and potassium chloride discontinued. IV Diamox initiated. ABG noted. Midodrine initiated. Continue per pulmonary and ID. Statins discontinued due to elevated liver enzymes. Continue to monitor electrolytes and renal parameters and ABG. Patient remains full code. 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 Taper steroids's deferred to systems consultant Urine sodium is below 20 Serum ammonia is elevated will start lactulose Patient on Solu-Medrol and Solu-Cortef will discontinue Solu-Cortef Will try to gently diurese for severe edema meanwhile administering albumin 25% as needed Monitor electrolytes and renal parameters We will add midodrine 10 mg 3 times a day via NG tube Decrease dosage of IV Synthroid Discussed with ADO Starr Subjective ROS Limited/Unobtainable: Yes Objective Objective Last 24 Hour Vital Signs Date Time Temp Pulse Resp B/P (MAP) Pulse Ox O2 Delivery O2 Flow Rate FiO2 04/02/20 11:00 90 25 112/54 (73) 96 04/02/20 10:50 112/56 04/02/20 10:49 112/56 04/02/20 10:30 90 27 111/51 (71) 96 04/02/20 10:00 110/52 04/02/20 10:00 110/52 04/02/20 10:00 90 24 110/52 (71) 95 04/02/20 09:30 90 25 112/51 (71) 96 04/02/20 09:09 90 24 80 04/02/20 09:00 116/50 04/02/20 09:00 116/50 04/02/20 09:00 99.3 90 25 116/50 (72) 96 04/02/20 08:30 90 26 113/51 (71) 95 04/02/20 08:00 Mechanical Ventilator Mechanical Ventilator 04/02/20 08:00 80 04/02/20 08:00 90 24 114/53 (73) 95 04/02/20 08:00 114/53 04/02/20 08:00 114/53 04/02/20 08:00 82 04/02/20 07:30 91 27 117/55 (75) 95 04/02/20 07:00 91 24 118/56 (76) 96 04/02/20 07:00 118/56 04/02/20 07:00 118/56 04/02/20 06:56 92 24 80 04/02/20 06:00 125/56 04/02/20 06:00 125/56 04/02/20 06:00 93 25 125/56 (79) 97 04/02/20 05:45 125/56 04/02/20 05:45 125/56 04/02/20 05:30 83/35 04/02/20 05:30 83/35 04/02/20 05:00 86 26 114/50 (71) 96 04/02/20 05:00 114/50 04/02/20 05:00 114/50 04/02/20 04:00 Mechanical Ventilator Mechanical Ventilator 04/02/20 04:00 116/48 04/02/20 04:00 116/48 04/02/20 04:00 80 04/02/20 04:00 87 04/02/20 04:00 99.4 87 24 116/48 (70) 96 04/02/20 03:55 125/52 04/02/20 03:00 88 33 120/55 (76) 97 04/02/20 03:00 120/55 04/02/20 03:00 120/55 04/02/20 02:59 89 24 80 04/02/20 02:30 90 31 127/58 (81) 96 04/02/20 02:30 121/60 04/02/20 02:00 121/60 04/02/20 02:00 121/60 04/02/20 02:00 90 32 121/60 (80) 96 04/02/20 01:00 90 26 126/58 (80) 95 04/02/20 01:00 126/58 04/02/20 01:00 126/58 04/02/20 00:00 Mechanical Ventilator Mechanical Ventilator 04/02/20 00:00 100.5 91 25 124/60 (81) 96 04/02/20 00:00 91 04/02/20 00:00 124/60 04/02/20 00:00 124/60 04/02/20 00:00 80 04/01/20 23:00 89 33 123/50 (74) 97 04/01/20 23:00 123/50 04/01/20 23:00 123/50 04/01/20 22:59 89 24 80 04/01/20 22:00 89 31 114/50 (71) 96 04/01/20 22:00 114/50 04/01/20 22:00 114/50 04/01/20 21:56 100.7 04/01/20 21:00 89 29 119/53 (75) 96 04/01/20 21:00 119/53 04/01/20 21:00 119/53 04/01/20 20:30 88 30 119/48 (71) 95 04/01/20 20:04 88 24 100 04/01/20 20:00 100 04/01/20 20:00 Mechanical Ventilator Mechanical Ventilator 04/01/20 20:00 112/46 04/01/20 20:00 112/46 04/01/20 20:00 100.0 88 28 112/46 (68) 96 04/01/20 20:00 88 04/01/20 19:00 86 27 98/41 (60) 92 04/01/20 19:00 101/40 04/01/20 19:00 101/40 04/01/20 18:56 86 33 93/38 (56) 92 04/01/20 18:45 83 29 89/36 (53) 90 04/01/20 18:43 122/56 04/01/20 18:40 93/38 04/01/20 18:30 87 30 122/56 (78) 93 04/01/20 18:15 86 27 111/51 (71) 94 04/01/20 18:00 86 31 105/47 (66) 93 04/01/20 18:00 111/51 04/01/20 18:00 111/51 04/01/20 17:45 86 25 99/48 (65) 92 04/01/20 17:30 87 28 113/53 (73) 93 04/01/20 17:15 88 26 132/59 (83) 94 04/01/20 17:00 132/59 04/01/20 17:00 132/59 04/01/20 17:00 88 26 132/66 (88) 93 04/01/20 16:45 88 26 128/63 (84) 93 04/01/20 16:30 88 26 134/62 (86) 93 04/01/20 16:15 88 26 133/64 (87) 93 04/01/20 16:00 99.3 88 28 131/65 (87) 93 04/01/20 16:00 Mechanical Ventilator Mechanical Ventilator 04/01/20 16:00 85 04/01/20 16:00 133/64 04/01/20 16:00 133/64 04/01/20 16:00 100 04/01/20 15:45 88 27 129/68 (88) 93 04/01/20 15:30 88 26 127/58 (81) 94 04/01/20 15:15 88 26 134/64 (87) 95 04/01/20 15:02 86 24 100 04/01/20 15:00 86 26 131/68 (89) 94 04/01/20 15:00 134/64 04/01/20 15:00 134/64 04/01/20 14:45 88 26 129/64 (85) 93 04/01/20 14:30 87 27 129/66 (87) 92 04/01/20 14:15 87 27 125/66 (85) 91 04/01/20 14:06 117/60 04/01/20 14:00 99.3 87 26 117/60 (79) 90 04/01/20 14:00 125/66 04/01/20 14:00 125/66 04/01/20 13:45 87 29 117/60 (79) 93 04/01/20 13:30 88 26 116/57 (76) 93 04/01/20 13:00 87 44 127/60 (82) 92 04/01/20 13:00 129/52 04/01/20 13:00 129/52 04/01/20 12:30 86 44 120/58 (78) 91 04/01/20 12:15 87 48 128/63 (84) 93 04/01/20 12:00 98.6 87 48 128/63 (84) 93 04/01/20 12:00 86 04/01/20 12:00 100 04/01/20 12:00 128/63 04/01/20 12:00 128/63 04/01/20 12:00 Mechanical Ventilator Mechanical Ventilator 04/01/20 11:45 86 40 117/61 (79) 90 Intake and Output 04/01/20 04/02/20 18:59 06:59 Intake Total 2257.234 ml 1855.845 ml Output Total 380 ml 310 ml Balance 1877.234 ml 1545.845 ml Free Water 30 ml IV Total 1827.234 ml 1825.845 ml Tube Feeding 400 ml 30 ml Output Urine Total 380 ml 310 ml # Bowel Movements 3 Laboratory Tests 04/01/20 15:35: Fibrinogen 195L, Fibrin Degradation Products, Quant [Pending], D-Dimer 5.44H, Hpgb-sgux-4-Glycoprotein I IgG Ab [Pending], Xonr-wkwj-3-Glycoprotein I IgA Ab [ Pending], Kxmj-juml-7-Glycoprotein I IgM Ab [Pending], Anti-Cardiolipin IgG Antibody [Pending], Anti-Cardiolipin IgA Antibody [Pending], Anti-Cardiolipin IgM Antibody [Pending] 04/02/20 06:30: White Blood Count 23.5*H, Red Blood Count 2.18L, Hemoglobin 8.1L, Hematocrit 23.3L, Mean Corpuscular Volume 107H, Mean Corpuscular Hemoglobin 37.0H, Mean Corpuscular Hemoglobin Concent 34.6, Red Cell Distribution Width 23.8H, Platelet Count 108L, Mean Platelet Volume 9.3, Neutrophils (%) (Auto) , Lymphocytes (%) (Auto) , Monocytes (%) (Auto) , Eosinophils (%) (Auto) , Basophils (%) (Auto) , Differential Total Cells Counted 100, Neutrophils % ( Manual) 75, Lymphocytes % (Manual) 10L, Monocytes % (Manual) 10, Eosinophils % ( Manual) 3, Basophils % (Manual) 0, Band Neutrophils 2, Nucleated Red Blood Cells 5, Platelet Estimate DecreasedL, Platelet Morphology Normal, Polychromasia 1+, Hypochromasia 1+, Anisocytosis 3+, Macrocytosis 2+, Sodium Level 129L, Potassium Level 5.2H, Chloride Level 91L, Carbon Dioxide Level 35H, Anion Gap 3L, Blood Urea Nitrogen 69H, Creatinine 0.8, Estimat Glomerular Filtration Rate > 60, Glucose Level 123H, Calcium Level 8.8, Phosphorus Level 5.3H, Magnesium Level 2.7H, Total Bilirubin 2.0H, Direct Bilirubin 1.0H, Aspartate Amino Transf (AST/SGOT) 726H, Alanine Aminotransferase (ALT/SGPT) 275H , Alkaline Phosphatase 378H, Ammonia 80H, Total Creatine Kinase 126, C-Reactive Protein, Quantitative 1.5H, Pro-B-Type Natriuretic Peptide 2840H, Total Protein 6.0L, Albumin 2.4L, Globulin 3.6, Albumin/Globulin Ratio 0.7L Height (Feet): 5 Height (Inches): 1.00 Weight (Pounds): 224 General Appearance: no apparent distress, lethargic EENT: other - Intubated on ventilator Cardiovascular: tachycardia Respiratory/Chest: decreased breath sounds Objective No change Cristhian Granados MD April 02, 2020 11:39
[2020-04-02] MEDS ORDERED: NaCl 3% 500ml 500 ML IV ONE (13:00)
--- NOTE | 2020-04-02 13:01 | Surgery Progress Note ---
Surgery Progress Note Subjective Symptoms: worse, other Objective Last 24 Hour Vital Signs Date Time Temp Pulse Resp B/P (MAP) Pulse Ox O2 Delivery O2 Flow Rate FiO2 04/02/20 11:11 89 24 80 04/02/20 11:00 90 25 112/54 (73) 96 04/02/20 10:50 112/56 04/02/20 10:49 112/56 04/02/20 10:30 90 27 111/51 (71) 96 04/02/20 10:00 110/52 04/02/20 10:00 110/52 04/02/20 10:00 90 24 110/52 (71) 95 04/02/20 09:30 90 25 112/51 (71) 96 04/02/20 09:09 90 24 80 04/02/20 09:00 116/50 04/02/20 09:00 116/50 04/02/20 09:00 99.3 90 25 116/50 (72) 96 04/02/20 08:30 90 26 113/51 (71) 95 04/02/20 08:00 Mechanical Ventilator Mechanical Ventilator 04/02/20 08:00 80 04/02/20 08:00 90 24 114/53 (73) 95 04/02/20 08:00 114/53 04/02/20 08:00 114/53 04/02/20 08:00 82 04/02/20 07:30 91 27 117/55 (75) 95 04/02/20 07:00 91 24 118/56 (76) 96 04/02/20 07:00 118/56 04/02/20 07:00 118/56 04/02/20 06:56 92 24 80 04/02/20 06:00 125/56 04/02/20 06:00 125/56 04/02/20 06:00 93 25 125/56 (79) 97 04/02/20 05:45 125/56 04/02/20 05:45 125/56 04/02/20 05:30 83/35 04/02/20 05:30 83/35 04/02/20 05:00 86 26 114/50 (71) 96 04/02/20 05:00 114/50 04/02/20 05:00 114/50 04/02/20 04:00 Mechanical Ventilator Mechanical Ventilator 04/02/20 04:00 116/48 5/17/20 04:00 116/48 04/02/20 04:00 80 04/02/20 04:00 87 04/02/20 04:00 99.4 87 24 116/48 (70) 96 04/02/20 03:55 125/52 04/02/20 03:00 88 33 120/55 (76) 97 04/02/20 03:00 120/55 04/02/20 03:00 120/55 04/02/20 02:59 89 24 80 04/02/20 02:30 90 31 127/58 (81) 96 04/02/20 02:30 121/60 04/02/20 02:00 121/60 04/02/20 02:00 121/60 04/02/20 02:00 90 32 121/60 (80) 96 04/02/20 01:00 90 26 126/58 (80) 95 04/02/20 01:00 126/58 04/02/20 01:00 126/58 04/02/20 00:00 Mechanical Ventilator Mechanical Ventilator 04/02/20 00:00 100.5 91 25 124/60 (81) 96 04/02/20 00:00 91 04/02/20 00:00 124/60 04/02/20 00:00 124/60 04/02/20 00:00 80 04/01/20 23:00 89 33 123/50 (74) 97 04/01/20 23:00 123/50 04/01/20 23:00 123/50 04/01/20 22:59 89 24 80 04/01/20 22:00 89 31 114/50 (71) 96 04/01/20 22:00 114/50 04/01/20 22:00 114/50 04/01/20 21:56 100.7 04/01/20 21:00 89 29 119/53 (75) 96 04/01/20 21:00 119/53 04/01/20 21:00 119/53 04/01/20 20:30 88 30 119/48 (71) 95 04/01/20 20:04 88 24 100 04/01/20 20:00 100 04/01/20 20:00 Mechanical Ventilator Mechanical Ventilator 04/01/20 20:00 112/46 5/16/20 20:00 112/46 04/01/20 20:00 100.0 88 28 112/46 (68) 96 04/01/20 20:00 88 04/01/20 19:00 86 27 98/41 (60) 92 04/01/20 19:00 101/40 04/01/20 19:00 101/40 04/01/20 18:56 86 33 93/38 (56) 92 04/01/20 18:45 83 29 89/36 (53) 90 04/01/20 18:43 122/56 04/01/20 18:40 93/38 04/01/20 18:30 87 30 122/56 (78) 93 04/01/20 18:15 86 27 111/51 (71) 94 04/01/20 18:00 86 31 105/47 (66) 93 04/01/20 18:00 111/51 04/01/20 18:00 111/51 04/01/20 17:45 86 25 99/48 (65) 92 04/01/20 17:30 87 28 113/53 (73) 93 04/01/20 17:15 88 26 132/59 (83) 94 04/01/20 17:00 132/59 04/01/20 17:00 132/59 04/01/20 17:00 88 26 132/66 (88) 93 04/01/20 16:45 88 26 128/63 (84) 93 04/01/20 16:30 88 26 134/62 (86) 93 04/01/20 16:15 88 26 133/64 (87) 93 04/01/20 16:00 99.3 88 28 131/65 (87) 93 04/01/20 16:00 Mechanical Ventilator Mechanical Ventilator 04/01/20 16:00 85 04/01/20 16:00 133/64 04/01/20 16:00 133/64 04/01/20 16:00 100 04/01/20 15:45 88 27 129/68 (88) 93 04/01/20 15:30 88 26 127/58 (81) 94 04/01/20 15:15 88 26 134/64 (87) 95 04/01/20 15:02 86 24 100 04/01/20 15:00 86 26 131/68 (89) 94 5/16/20 15:00 134/64 04/01/20 15:00 134/64 04/01/20 14:45 88 26 129/64 (85) 93 04/01/20 14:30 87 27 129/66 (87) 92 04/01/20 14:15 87 27 125/66 (85) 91 04/01/20 14:06 117/60 04/01/20 14:00 99.3 87 26 117/60 (79) 90 04/01/20 14:00 125/66 04/01/20 14:00 125/66 04/01/20 13:45 87 29 117/60 (79) 93 04/01/20 13:30 88 26 116/57 (76) 93 I&O Intake and Output 04/01/20 04/02/20 19:00 07:00 Intake Total 2243.342 ml 1884.714 ml Output Total 360 ml 340 ml Balance 1883.342 ml 1544.714 ml Free Water 30 ml IV Total 1863.342 ml 1844.714 ml Tube Feeding 350 ml 40 ml Output Urine Total 360 ml 340 ml # Bowel Movements 3 Dressing: dry Cardiovascular: RSR Respiratory: decreased breath sounds Abdomen: soft, present bowel sounds, non-distended Extremities: edema, no tenderness, no cyanosis Laboratory Tests Test 04/01/20 15:35 04/02/20 06:30 Fibrinogen 195 mg/dL (200-400) L Fibrin Degradation Products, Quant Pending D-Dimer 5.44 mg/L FEU (0.00-0.49) H Qscv-dzru-0-Glycoprotein I IgG Ab Pending Znoz-ldio-0-Glycoprotein I IgA Ab Pending Fore-pand-3-Glycoprotein I IgM Ab Pending Anti-Cardiolipin IgG Antibody Pending Anti-Cardiolipin IgA Antibody Pending Anti-Cardiolipin IgM Antibody Pending White Blood Count 23.5 K/UL (4.8-10.8) *H Red Blood Count 2.18 M/UL (4.20-5.40) L Hemoglobin 8.1 G/DL (12.0-16.0) L Hematocrit 23.3 % (37.0-47.0) L Mean Corpuscular Volume 107 FL (80-99) H Mean Corpuscular Hemoglobin 37.0 PG (27.0-31.0) H Mean Corpuscular Hemoglobin Concent 34.6 G/DL (32.0-36.0) Red Cell Distribution Width 23.8 % (11.6-14.8) H Platelet Count 108 K/UL (150-450) L Mean Platelet Volume 9.3 FL (6.5-10.1) Neutrophils (%) (Auto) % (45.0-75.0) Lymphocytes (%) (Auto) % (20.0-45.0) Monocytes (%) (Auto) % (1.0-10.0) Eosinophils (%) (Auto) % (0.0-3.0) Basophils (%) (Auto) % (0.0-2.0) Differential Total Cells Counted 100 Neutrophils % (Manual) 75 % (45-75) Lymphocytes % (Manual) 10 % (20-45) L Monocytes % (Manual) 10 % (1-10) Eosinophils % (Manual) 3 % (0-3) Basophils % (Manual) 0 % (0-2) Band Neutrophils 2 % (0-8) Nucleated Red Blood Cells 5 /100 WBC Platelet Estimate Decreased L Platelet Morphology Normal Polychromasia 1+ Hypochromasia 1+ Anisocytosis 3+ Macrocytosis 2+ Sodium Level 129 MMOL/L (136-145) L Potassium Level 5.2 MMOL/L (3.5-5.1) H Chloride Level 91 MMOL/L (98-107) L Carbon Dioxide Level 35 MMOL/L (21-32) H Anion Gap 3 mmol/L (5-15) L Blood Urea Nitrogen 69 mg/dL (7-18) H Creatinine 0.8 MG/DL (0.55-1.30) Estimat Glomerular Filtration Rate > 60 mL/min (>60) Glucose Level 123 MG/DL (74-106) H Calcium Level 8.8 MG/DL (8.5-10.1) Phosphorus Level 5.3 MG/DL (2.5-4.9) H Magnesium Level 2.7 MG/DL (1.8-2.4) H Total Bilirubin 2.0 MG/DL (0.2-1.0) H Direct Bilirubin 1.0 MG/DL (0.0-0.3) H Aspartate Amino Transf (AST/SGOT) 726 U/L (15-37) H Alanine Aminotransferase (ALT/SGPT) 275 U/L (12-78) H Alkaline Phosphatase 378 U/L (46-116) H Ammonia 80 umol/L (11-32) H Total Creatine Kinase 126 U/L (26-308) C-Reactive Protein, Quantitative 1.5 mg/dL (0.00-0.90) H Pro-B-Type Natriuretic Peptide 2840 pg/mL (0-125) H Total Protein 6.0 G/DL (6.4-8.2) L Albumin 2.4 G/DL (3.4-5.0) L Globulin 3.6 g/dL Albumin/Globulin Ratio 0.7 (1.0-2.7) L Plan Problems: (1) Cellulitis Assessment & Plan: bilateral lower extremity cellulitis / edema chronic venous status changes dermatitis no abscess no purulent drainage ulcerations forming. keep lower extremity elevated while in bed apply skin protectant / moisturizing cream daily okay to shower okay to wrap soft after cream abx as per ID for cellulitis okay for diet duplex ordered trend labs will follow with recs thank you No evidence of deep venous thrombosis involving the visualized veins of the RIGHT lower extremity. refused eval of left COVID ++ cxr noted cont current supportive care improving labs stable improving slowly wean pressors as tolerated Patient is acutely worsened intubated on vent support 2 pressors now worsening labs worsening Prognosis is guarded we will continue with maximal support efforts weaning vent weaning pressors leukocytosis trend lft's Diffuse bilateral interstitial and airspace opacities worsening again vent settings high on pressors (2) COVID-19 Assessment & Plan: see above Theron Sotomayor April 02, 2020 13:00
--- NOTE | 2020-04-02 16:44 | General Progress Note ---
Assessment/Plan Problem List: (1) Cellulitis ICD Codes: L03.90 - Cellulitis, unspecified SNOMED: [id number] Qualifiers: Qualified Codes: L03.119 - Cellulitis of unspecified part of limb Status: progressing, unchanged Assessment/Plan: respiratory failure eeg ordered uti pna positive sputum cx hyperkalemia hyponatremia ARF persistent leukocytosis sepsis anemia. h/h is stable cirrhosis poor prognosis Subjective ROS Limited/Unobtainable: Yes Allergies: Coded Allergies: No Known Allergies (Unverified , 02/29/20) Objective Last 24 Hour Vital Signs Date Time Temp Pulse Resp B/P (MAP) Pulse Ox O2 Delivery O2 Flow Rate FiO2 04/02/20 16:00 99.1 86 26 97/39 (58) 97 04/02/20 16:00 80 04/02/20 16:00 Mechanical Ventilator Mechanical Ventilator 04/02/20 15:30 87 24 107/50 (69) 96 04/02/20 15:04 88 24 80 04/02/20 15:00 88 25 108/48 (68) 97 04/02/20 15:00 108/48 04/02/20 15:00 108/48 04/02/20 14:30 87 24 107/48 (67) 95 04/02/20 14:00 88 25 111/53 (72) 95 04/02/20 14:00 88 24 111/53 (72) 95 04/02/20 14:00 109/50 04/02/20 14:00 109/50 04/02/20 13:30 88 24 111/52 (71) 95 04/02/20 13:30 88 25 112/53 (72) 95 04/02/20 13:00 88 25 109/50 (69) 95 04/02/20 13:00 88 26 109/51 (70) 95 04/02/20 13:00 109/50 04/02/20 13:00 109/50 04/02/20 12:30 88 25 112/51 (71) 95 04/02/20 12:30 89 26 108/50 (69) 95 04/02/20 12:00 89 25 106/50 (68) 95 04/02/20 12:00 80 04/02/20 12:00 99.1 89 26 107/52 (70) 96 04/02/20 12:00 106/50 04/02/20 12:00 106/50 04/02/20 12:00 88 04/02/20 12:00 80 04/02/20 12:00 Mechanical Ventilator Mechanical Ventilator 04/02/20 11:30 89 25 108/51 (70) 96 04/02/20 11:30 89 26 110/51 (70) 95 04/02/20 11:11 89 24 80 04/02/20 11:00 90 25 112/54 (73) 96 04/02/20 11:00 114/50 04/02/20 11:00 114/50 04/02/20 10:50 112/56 04/02/20 10:49 112/56 04/02/20 10:30 90 27 111/51 (71) 96 04/02/20 10:00 110/52 04/02/20 10:00 110/52 04/02/20 10:00 90 24 110/52 (71) 95 04/02/20 09:30 90 25 112/51 (71) 96 04/02/20 09:09 90 24 80 04/02/20 09:00 116/50 04/02/20 09:00 116/50 04/02/20 09:00 99.3 90 25 116/50 (72) 96 04/02/20 08:30 90 26 113/51 (71) 95 04/02/20 08:00 Mechanical Ventilator Mechanical Ventilator 04/02/20 08:00 80 04/02/20 08:00 90 24 114/53 (73) 95 04/02/20 08:00 114/53 04/02/20 08:00 114/53 04/02/20 08:00 82 04/02/20 07:30 91 27 117/55 (75) 95 04/02/20 07:00 91 24 118/56 (76) 96 04/02/20 07:00 118/56 04/02/20 07:00 118/56 04/02/20 06:56 92 24 80 04/02/20 06:00 125/56 04/02/20 06:00 125/56 04/02/20 06:00 93 25 125/56 (79) 97 04/02/20 05:45 125/56 04/02/20 05:45 125/56 04/02/20 05:30 83/35 04/02/20 05:30 83/35 04/02/20 05:00 86 26 114/50 (71) 96 04/02/20 05:00 114/50 04/02/20 05:00 114/50 04/02/20 04:00 Mechanical Ventilator Mechanical Ventilator 04/02/20 04:00 116/48 04/02/20 04:00 116/48 04/02/20 04:00 80 04/02/20 04:00 87 04/02/20 04:00 99.4 87 24 116/48 (70) 96 04/02/20 03:55 125/52 04/02/20 03:00 88 33 120/55 (76) 97 04/02/20 03:00 120/55 04/02/20 03:00 120/55 04/02/20 02:59 89 24 80 04/02/20 02:30 90 31 127/58 (81) 96 04/02/20 02:30 121/60 04/02/20 02:00 121/60 04/02/20 02:00 121/60 04/02/20 02:00 90 32 121/60 (80) 96 04/02/20 01:00 90 26 126/58 (80) 95 04/02/20 01:00 126/58 04/02/20 01:00 126/58 04/02/20 00:00 Mechanical Ventilator Mechanical Ventilator 04/02/20 00:00 100.5 91 25 124/60 (81) 96 04/02/20 00:00 91 04/02/20 00:00 124/60 04/02/20 00:00 124/60 04/02/20 00:00 80 04/01/20 23:00 89 33 123/50 (74) 97 04/01/20 23:00 123/50 04/01/20 23:00 123/50 04/01/20 22:59 89 24 80 04/01/20 22:00 89 31 114/50 (71) 96 04/01/20 22:00 114/50 04/01/20 22:00 114/50 04/01/20 21:56 100.7 04/01/20 21:00 89 29 119/53 (75) 96 04/01/20 21:00 119/53 04/01/20 21:00 119/53 04/01/20 20:30 88 30 119/48 (71) 95 04/01/20 20:04 88 24 100 04/01/20 20:00 100 04/01/20 20:00 Mechanical Ventilator Mechanical Ventilator 04/01/20 20:00 112/46 04/01/20 20:00 112/46 04/01/20 20:00 100.0 88 28 112/46 (68) 96 04/01/20 20:00 88 04/01/20 19:00 86 27 98/41 (60) 92 04/01/20 19:00 101/40 04/01/20 19:00 101/40 04/01/20 18:56 86 33 93/38 (56) 92 04/01/20 18:45 83 29 89/36 (53) 90 04/01/20 18:43 122/56 04/01/20 18:40 93/38 04/01/20 18:30 87 30 122/56 (78) 93 04/01/20 18:15 86 27 111/51 (71) 94 04/01/20 18:00 86 31 105/47 (66) 93 04/01/20 18:00 111/51 04/01/20 18:00 111/51 04/01/20 17:45 86 25 99/48 (65) 92 04/01/20 17:30 87 28 113/53 (73) 93 04/01/20 17:15 88 26 132/59 (83) 94 04/01/20 17:00 132/59 04/01/20 17:00 132/59 04/01/20 17:00 88 26 132/66 (88) 93 04/01/20 16:45 88 26 128/63 (84) 93 Intake and Output 04/01/20 04/02/20 19:00 07:00 Intake Total 2243.342 ml 1884.714 ml Output Total 360 ml 340 ml Balance 1883.342 ml 1544.714 ml Free Water 30 ml IV Total 1863.342 ml 1844.714 ml Tube Feeding 350 ml 40 ml Output Urine Total 360 ml 340 ml # Bowel Movements 3 Laboratory Tests 04/02/20 06:30: White Blood Count 23.5*H, Red Blood Count 2.18L, Hemoglobin 8.1L, Hematocrit 23.3L, Mean Corpuscular Volume 107H, Mean Corpuscular Hemoglobin 37.0H, Mean Corpuscular Hemoglobin Concent 34.6, Red Cell Distribution Width 23.8H, Platelet Count 108L, Mean Platelet Volume 9.3, Neutrophils (%) (Auto) , Lymphocytes (%) (Auto) , Monocytes (%) (Auto) , Eosinophils (%) (Auto) , Basophils (%) (Auto) , Differential Total Cells Counted 100, Neutrophils % ( Manual) 75, Lymphocytes % (Manual) 10L, Monocytes % (Manual) 10, Eosinophils % ( Manual) 3, Basophils % (Manual) 0, Band Neutrophils 2, Nucleated Red Blood Cells 5, Platelet Estimate DecreasedL, Platelet Morphology Normal, Polychromasia 1+, Hypochromasia 1+, Anisocytosis 3+, Macrocytosis 2+, Sodium Level 129L, Potassium Level 5.2H, Chloride Level 91L, Carbon Dioxide Level 35H, Anion Gap 3L, Blood Urea Nitrogen 69H, Creatinine 0.8, Estimat Glomerular Filtration Rate > 60, Glucose Level 123H, Calcium Level 8.8, Phosphorus Level 5.3H, Magnesium Level 2.7H, Total Bilirubin 2.0H, Direct Bilirubin 1.0H, Aspartate Amino Transf (AST/SGOT) 726H, Alanine Aminotransferase (ALT/SGPT) 275H , Alkaline Phosphatase 378H, Ammonia 80H, Total Creatine Kinase 126, C-Reactive Protein, Quantitative 1.5H, Pro-B-Type Natriuretic Peptide 2840H, Total Protein 6.0L, Albumin 2.4L, Globulin 3.6, Albumin/Globulin Ratio 0.7L Height (Feet): 5 Height (Inches): 1.00 Weight (Pounds): 224 Celso Moreno MD April 02, 2020 16:44
--- NOTE | 2020-04-02 17:44 | Pulmonolgy Critical Care Note ---
Critical Care - Asmt/Plan Assessment/Plan: Pulmonary CCM Progress Note HPI Patient is a 59 year old woman with significant obesity, admitted with bilateral lower extremity cellulitis, had complained of increased swelling and redness to both of her feet and legs Had elevated BNP on admission, persistent edema since admission, worsening hypoxia. Patient had previous hospitalizations for cellulitis, PMH Hypothyroidism, Obesity, Cirrhosis, Anemia, Anxiety, Cellulitis Remains unresponsive off sedation > 48 hours, pupils dilated, minimally reactive to pain, non purposeful, not triggering ventilator, CT Head/Neuro consult pending. EEG severe encephalopathy COVID 19 positive, Pneumonia, Respiratory failure VQ no significant perfusion abnormality, prev LE dupplex negative on one leg Did not tolerating Proning previously Worsening PaO2/FIO2, VC settings adjusted, P 16, FIO2 now 100%%, has elevated PaCO2 Renal following Hypothyroidism, elevated glucose, Endocrine following [facility] previously - Remdesavir requested for when available, [facility] - not available as yet Previously received IL6 inhibitor inititial dose (4mg/Kg - all that was available), subsequent dose pending, on steroids - being weaned 10 mg daily to off Allergies: No Known Allergies Past Medical History: Obesity, Cirrhosis, Anemia, Anxiety, Cellulitis, Hypothyroidism All Other Systems: negative except mentioned in HPI Physical Exam Vital Signs Noted General Appearance: Obese, no reaction to pain despite no sedation, intubated Head: normocephalic, atraumatic Eyes: pupils dilated and non responsive to light bilaterally ENT: moist MM, no LN Respiratory: Bilateral crackles, bilateral rhonchi, not overbreathing the ventilator Cardiovascular: regular rate, rhythm, HS1, HS2 RRR Gastrointestinal: Obese, soft non tender, ND Musculoskeletal: Mild edema and erythema bilateral lower extremity, patient has crusting on both feet, Neurologic: non responsive, no focal signs noted, no seizures, no response to pain Impression: Covid Pneumonia, s/p IL6 inhibitor, sp Hydroxychloroquine, Ivermectin Worsening hypoxia, worsening PCO2 Bilateral dilated non reactive pupils, patient unresponsive despite no sedation Not triggering ventilator Minimal response to pain Increased WCC - ID following ID following Bilateral Lower Extremity Cellulitis Elevated NPA, severe bilateral edema - improving Cirrhosis, elevated transaminases/ammonia Splenomegaly Anemia Anxiety Hyponatremia Hypothyroidism Very poor prognosis Plan Neurology Consultation/CT head pending IV Antibiotics per ID On trial of steroids - currently 10 mg daily, being weaned to off, s/p IL6 inhibitor previously Surgery following for wounds Hematology following for anemia, observing for Neutropenia/thrombocytopenia Renal following for hypernatremia/volume status Endocrine following for Hypothyroidism, on ISS Monitor labs Bronchodilators PPX - SCD AC VC Proning PRN Supplement electrolytes PRN Albuterol PRN MDI [employer] Medications Previously d/w Patients daughter Tri - discussed grave prognosis, possibility of patient having had possible stroke/IC event, suggested DNAR - wants full code Case d/w RN Previously [facility] - Remdesavir ordered, awaiting supply Labs Noted Chest X-Ray: Cardiomegaly, left lower lobe atelectasis versus effusion, worsening infiltrates/congestion Subjective ROS Limited/Unobtainable: No Constitutional: Reports: no symptoms Gastrointestinal/Abdominal: Reports: no symptoms Musculoskeletal: Reports: other - SOB Allergies: Coded Allergies: No Known Allergies (Unverified , 02/29/20) ICU time 50 minutes Critical Care - Objective Last 24 Hour Vital Signs Date Time Temp Pulse Resp B/P (MAP) Pulse Ox O2 Delivery O2 Flow Rate FiO2 04/02/20 17:00 86 24 100/42 (61) 97 04/02/20 16:30 87 24 100/38 (58) 97 04/02/20 16:00 99.1 86 26 97/39 (58) 97 04/02/20 16:00 80 04/02/20 16:00 86 04/02/20 16:00 Mechanical Ventilator Mechanical Ventilator 04/02/20 15:30 87 24 107/50 (69) 96 04/02/20 15:04 88 24 80 04/02/20 15:00 88 25 108/48 (68) 97 04/02/20 15:00 108/48 04/02/20 15:00 108/48 04/02/20 14:30 87 24 107/48 (67) 95 04/02/20 14:00 88 25 111/53 (72) 95 04/02/20 14:00 88 24 111/53 (72) 95 04/02/20 14:00 109/50 04/02/20 14:00 109/50 04/02/20 13:30 88 24 111/52 (71) 95 04/02/20 13:30 88 25 112/53 (72) 95 04/02/20 13:00 88 25 109/50 (69) 95 04/02/20 13:00 88 26 109/51 (70) 95 04/02/20 13:00 109/50 04/02/20 13:00 109/50 04/02/20 12:30 88 25 112/51 (71) 95 04/02/20 12:30 89 26 108/50 (69) 95 04/02/20 12:00 89 25 106/50 (68) 95 04/02/20 12:00 80 04/02/20 12:00 99.1 89 26 107/52 (70) 96 04/02/20 12:00 106/50 04/02/20 12:00 106/50 04/02/20 12:00 88 04/02/20 12:00 80 04/02/20 12:00 Mechanical Ventilator Mechanical Ventilator 04/02/20 11:30 89 25 108/51 (70) 96 04/02/20 11:30 89 26 110/51 (70) 95 04/02/20 11:11 89 24 80 04/02/20 11:00 90 25 112/54 (73) 96 04/02/20 11:00 114/50 04/02/20 11:00 114/50 04/02/20 10:50 112/56 04/02/20 10:49 112/56 04/02/20 10:30 90 27 111/51 (71) 96 04/02/20 10:00 110/52 04/02/20 10:00 110/52 04/02/20 10:00 90 24 110/52 (71) 95 04/02/20 09:30 90 25 112/51 (71) 96 04/02/20 09:09 90 24 80 04/02/20 09:00 116/50 04/02/20 09:00 116/50 04/02/20 09:00 99.3 90 25 116/50 (72) 96 04/02/20 08:30 90 26 113/51 (71) 95 04/02/20 08:00 Mechanical Ventilator Mechanical Ventilator 04/02/20 08:00 80 04/02/20 08:00 90 24 114/53 (73) 95 04/02/20 08:00 114/53 04/02/20 08:00 114/53 04/02/20 08:00 82 04/02/20 07:30 91 27 117/55 (75) 95 04/02/20 07:00 91 24 118/56 (76) 96 04/02/20 07:00 118/56 04/02/20 07:00 118/56 04/02/20 06:56 92 24 80 04/02/20 06:00 125/56 04/02/20 06:00 125/56 04/02/20 06:00 93 25 125/56 (79) 97 04/02/20 05:45 125/56 04/02/20 05:45 125/56 04/02/20 05:30 83/35 04/02/20 05:30 83/35 04/02/20 05:00 86 26 114/50 (71) 96 04/02/20 05:00 114/50 04/02/20 05:00 114/50 04/02/20 04:00 Mechanical Ventilator Mechanical Ventilator 04/02/20 04:00 116/48 04/02/20 04:00 116/48 04/02/20 04:00 80 04/02/20 04:00 87 04/02/20 04:00 99.4 87 24 116/48 (70) 96 04/02/20 03:55 125/52 04/02/20 03:00 88 33 120/55 (76) 97 04/02/20 03:00 120/55 04/02/20 03:00 120/55 04/02/20 02:59 89 24 80 04/02/20 02:30 90 31 127/58 (81) 96 04/02/20 02:30 121/60 04/02/20 02:00 121/60 04/02/20 02:00 121/60 04/02/20 02:00 90 32 121/60 (80) 96 04/02/20 01:00 90 26 126/58 (80) 95 04/02/20 01:00 126/58 04/02/20 01:00 126/58 04/02/20 00:00 Mechanical Ventilator Mechanical Ventilator 04/02/20 00:00 100.5 91 25 124/60 (81) 96 04/02/20 00:00 91 04/02/20 00:00 124/60 04/02/20 00:00 124/60 04/02/20 00:00 80 04/01/20 23:00 89 33 123/50 (74) 97 04/01/20 23:00 123/50 04/01/20 23:00 123/50 04/01/20 22:59 89 24 80 04/01/20 22:00 89 31 114/50 (71) 96 04/01/20 22:00 114/50 04/01/20 22:00 114/50 04/01/20 21:56 100.7 04/01/20 21:00 89 29 119/53 (75) 96 04/01/20 21:00 119/53 04/01/20 21:00 119/53 04/01/20 20:30 88 30 119/48 (71) 95 04/01/20 20:04 88 24 100 04/01/20 20:00 100 04/01/20 20:00 Mechanical Ventilator Mechanical Ventilator 04/01/20 20:00 112/46 04/01/20 20:00 112/46 04/01/20 20:00 100.0 88 28 112/46 (68) 96 04/01/20 20:00 88 04/01/20 19:00 86 27 98/41 (60) 92 04/01/20 19:00 101/40 04/01/20 19:00 101/40 04/01/20 18:56 86 33 93/38 (56) 92 04/01/20 18:45 83 29 89/36 (53) 90 04/01/20 18:43 122/56 04/01/20 18:40 93/38 04/01/20 18:30 87 30 122/56 (78) 93 04/01/20 18:15 86 27 111/51 (71) 94 04/01/20 18:00 86 31 105/47 (66) 93 04/01/20 18:00 111/51 04/01/20 18:00 111/51 04/01/20 17:45 86 25 99/48 (65) 92 Accucheck: 150 Critical Care - Subjective ROS Limited/Unobtainable: No Condition: critical IV Access: PICC FI02: 80 Vent Support Breath Rate: 24 Vent Support Mode: AC Vent Tidal Volume: 400 Sputum Amount: Scant PEEP: 16.0 PIP: 34 Tube Feeding Amount: 5 I&O: Intake and Output 04/01/20 04/02/20 19:00 07:00 Intake Total 2243.342 ml 1884.714 ml Output Total 360 ml 340 ml Balance 1883.342 ml 1544.714 ml Free Water 30 ml IV Total 1863.342 ml 1844.714 ml Tube Feeding 350 ml 40 ml Output Urine Total 360 ml 340 ml # Bowel Movements 3 ET-Tube: 7.5 ET Position: 21 Doron Carrillo MD April 02, 2020 17:44
[2020-04-02] MEDS: Vancomycin 500 MG in NS 110 ML IVPB SCH (18:00)
[2020-04-02] MEDS: Dyna-Hex 2% Top Sol 2oz TOPIC SCH (19:58)
[2020-04-02] MEDS: fentaNYL Citrate 1000 MCG in NS 100ml IV SCH (22:30)
--- NOTE | 2020-04-02 23:15 | Cardiology Progress Note ---
Assessment/Plan Assessment/Plan 1. Acute hypoxic hypercapnic respiratory failure, due to bilateral PNA caused by COVID-19 infection, on steroids. 2. Septic shock with bradycardia, on dopamine gtt and midodrine, keep MAP at 65 mmHg. Normal LV function with LVEF at 60%. 3. Hyponatremia, resolved. 4. Bilateral lower extremity cellulitis with Pseudomonas aeruginosa. 5. Hypernatremia, resolved. 6. HCV infection with liver cirrhosis. Subjective Subjective Sinus rhythm at rate of 87. Objective Last 24 Hour Vital Signs Date Time Temp Pulse Resp B/P (MAP) Pulse Ox O2 Delivery O2 Flow Rate FiO2 04/02/20 22:00 87 25 115/39 (64) 98 04/02/20 22:00 115/39 04/02/20 22:00 115/39 04/02/20 21:30 87 24 117/45 (69) 98 04/02/20 21:00 112/51 04/02/20 21:00 112/51 04/02/20 21:00 87 30 112/51 (71) 97 04/02/20 20:00 Mechanical Ventilator Mechanical Ventilator 04/02/20 20:00 80 04/02/20 20:00 85 04/02/20 20:00 99.0 86 24 110/46 (67) 98 04/02/20 19:30 87 24 80 04/02/20 19:30 118/51 04/02/20 19:00 85 24 99/47 (64) 97 04/02/20 19:00 99/47 04/02/20 19:00 99/47 04/02/20 18:12 68/22 04/02/20 18:00 85 24 102/41 (61) 95 04/02/20 18:00 102/41 04/02/20 18:00 102/41 04/02/20 17:30 85 28 96/44 (61) 97 04/02/20 17:00 96/44 04/02/20 17:00 96/44 04/02/20 17:00 86 24 100/42 (61) 97 04/02/20 16:30 87 24 100/38 (58) 97 04/02/20 16:00 99.1 86 26 97/39 (58) 97 04/02/20 16:00 80 04/02/20 16:00 100/38 04/02/20 16:00 100/38 04/02/20 16:00 86 04/02/20 16:00 Mechanical Ventilator Mechanical Ventilator 04/02/20 15:30 87 24 107/50 (69) 96 04/02/20 15:04 88 24 80 04/02/20 15:00 88 25 108/48 (68) 97 04/02/20 15:00 108/48 04/02/20 15:00 108/48 04/02/20 14:30 87 24 107/48 (67) 95 04/02/20 14:00 88 25 111/53 (72) 95 04/02/20 14:00 88 24 111/53 (72) 95 04/02/20 14:00 109/50 04/02/20 14:00 109/50 04/02/20 13:30 88 24 111/52 (71) 95 04/02/20 13:30 88 25 112/53 (72) 95 04/02/20 13:00 88 25 109/50 (69) 95 04/02/20 13:00 88 26 109/51 (70) 95 04/02/20 13:00 109/50 04/02/20 13:00 109/50 04/02/20 12:30 88 25 112/51 (71) 95 04/02/20 12:30 89 26 108/50 (69) 95 04/02/20 12:00 89 25 106/50 (68) 95 04/02/20 12:00 80 04/02/20 12:00 99.1 89 26 107/52 (70) 96 04/02/20 12:00 106/50 04/02/20 12:00 106/50 04/02/20 12:00 88 04/02/20 12:00 80 04/02/20 12:00 Mechanical Ventilator Mechanical Ventilator 04/02/20 11:30 89 25 108/51 (70) 96 04/02/20 11:30 89 26 110/51 (70) 95 04/02/20 11:11 89 24 80 04/02/20 11:00 90 25 112/54 (73) 96 04/02/20 11:00 114/50 04/02/20 11:00 114/50 04/02/20 10:50 112/56 04/02/20 10:49 112/56 04/02/20 10:30 90 27 111/51 (71) 96 04/02/20 10:00 110/52 04/02/20 10:00 110/52 04/02/20 10:00 90 24 110/52 (71) 95 04/02/20 09:30 90 25 112/51 (71) 96 04/02/20 09:09 90 24 80 04/02/20 09:00 116/50 04/02/20 09:00 116/50 04/02/20 09:00 99.3 90 25 116/50 (72) 96 04/02/20 08:30 90 26 113/51 (71) 95 04/02/20 08:00 Mechanical Ventilator Mechanical Ventilator 04/02/20 08:00 80 04/02/20 08:00 90 24 114/53 (73) 95 04/02/20 08:00 114/53 04/02/20 08:00 114/53 04/02/20 08:00 82 04/02/20 07:30 91 27 117/55 (75) 95 04/02/20 07:00 91 24 118/56 (76) 96 04/02/20 07:00 118/56 04/02/20 07:00 118/56 04/02/20 06:56 92 24 80 04/02/20 06:00 125/56 04/02/20 06:00 125/56 04/02/20 06:00 93 25 125/56 (79) 97 04/02/20 05:45 125/56 04/02/20 05:45 125/56 04/02/20 05:30 83/35 04/02/20 05:30 83/35 04/02/20 05:00 86 26 114/50 (71) 96 04/02/20 05:00 114/50 04/02/20 05:00 114/50 04/02/20 04:00 Mechanical Ventilator Mechanical Ventilator 04/02/20 04:00 116/48 04/02/20 04:00 116/48 04/02/20 04:00 80 04/02/20 04:00 87 04/02/20 04:00 99.4 87 24 116/48 (70) 96 04/02/20 03:55 125/52 04/02/20 03:00 88 33 120/55 (76) 97 04/02/20 03:00 120/55 04/02/20 03:00 120/55 04/02/20 02:59 89 24 80 04/02/20 02:30 90 31 127/58 (81) 96 04/02/20 02:30 121/60 04/02/20 02:00 121/60 04/02/20 02:00 121/60 04/02/20 02:00 90 32 121/60 (80) 96 04/02/20 01:00 90 26 126/58 (80) 95 04/02/20 01:00 126/58 04/02/20 01:00 126/58 04/02/20 00:00 Mechanical Ventilator Mechanical Ventilator 04/02/20 00:00 100.5 91 25 124/60 (81) 96 04/02/20 00:00 91 04/02/20 00:00 124/60 04/02/20 00:00 124/60 04/02/20 00:00 80 Intake and Output 04/01/20 04/02/20 19:00 07:00 Intake Total 2243.342 ml 1884.714 ml Output Total 360 ml 340 ml Balance 1883.342 ml 1544.714 ml Free Water 30 ml IV Total 1863.342 ml 1844.714 ml Tube Feeding 350 ml 40 ml Output Urine Total 360 ml 340 ml # Bowel Movements 3 2D Echo: EF 60%, Mild LVH, Mild MR. RVSP 44 mmHg, Normal LVD Fxn Laboratory Tests Test 04/02/20 06:30 White Blood Count 23.5 K/UL (4.8-10.8) *H Red Blood Count 2.18 M/UL (4.20-5.40) L Hemoglobin 8.1 G/DL (12.0-16.0) L Hematocrit 23.3 % (37.0-47.0) L Mean Corpuscular Volume 107 FL (80-99) H Mean Corpuscular Hemoglobin 37.0 PG (27.0-31.0) H Mean Corpuscular Hemoglobin Concent 34.6 G/DL (32.0-36.0) Red Cell Distribution Width 23.8 % (11.6-14.8) H Platelet Count 108 K/UL (150-450) L Mean Platelet Volume 9.3 FL (6.5-10.1) Neutrophils (%) (Auto) % (45.0-75.0) Lymphocytes (%) (Auto) % (20.0-45.0) Monocytes (%) (Auto) % (1.0-10.0) Eosinophils (%) (Auto) % (0.0-3.0) Basophils (%) (Auto) % (0.0-2.0) Differential Total Cells Counted 100 Neutrophils % (Manual) 75 % (45-75) Lymphocytes % (Manual) 10 % (20-45) L Monocytes % (Manual) 10 % (1-10) Eosinophils % (Manual) 3 % (0-3) Basophils % (Manual) 0 % (0-2) Band Neutrophils 2 % (0-8) Nucleated Red Blood Cells 5 /100 WBC Platelet Estimate Decreased L Platelet Morphology Normal Polychromasia 1+ Hypochromasia 1+ Anisocytosis 3+ Macrocytosis 2+ Sodium Level 129 MMOL/L (136-145) L Potassium Level 5.2 MMOL/L (3.5-5.1) H Chloride Level 91 MMOL/L (98-107) L Carbon Dioxide Level 35 MMOL/L (21-32) H Anion Gap 3 mmol/L (5-15) L Blood Urea Nitrogen 69 mg/dL (7-18) H Creatinine 0.8 MG/DL (0.55-1.30) Estimat Glomerular Filtration Rate > 60 mL/min (>60) Glucose Level 123 MG/DL (74-106) H Calcium Level 8.8 MG/DL (8.5-10.1) Phosphorus Level 5.3 MG/DL (2.5-4.9) H Magnesium Level 2.7 MG/DL (1.8-2.4) H Total Bilirubin 2.0 MG/DL (0.2-1.0) H Direct Bilirubin 1.0 MG/DL (0.0-0.3) H Aspartate Amino Transf (AST/SGOT) 726 U/L (15-37) H Alanine Aminotransferase (ALT/SGPT) 275 U/L (12-78) H Alkaline Phosphatase 378 U/L (46-116) H Ammonia 80 umol/L (11-32) H Total Creatine Kinase 126 U/L (26-308) C-Reactive Protein, Quantitative 1.5 mg/dL (0.00-0.90) H Pro-B-Type Natriuretic Peptide 2840 pg/mL (0-125) H Total Protein 6.0 G/DL (6.4-8.2) L Albumin 2.4 G/DL (3.4-5.0) L Globulin 3.6 g/dL Albumin/Globulin Ratio 0.7 (1.0-2.7) L Objective HEENT: Atraumatic and normocephalic. Anicteric. Intubated. NECK: JVP cannot be assessed. No carotid bruit. + ETT. CARDIOVASCULAR: Normal S1, S2. Regular rate and rhythm. No murmurs, gallops, or rubs. PMI is at fourth intercostal space at left midclavicular line. LUNGS: Bibasilar crackles. ABDOMEN: Soft, nontender, and nondistended. No hepatosplenomegaly. Positive bowel sounds. EXTREMITIES: A 2+ edema bilaterally associated with erythema with blistering and crust formation of both feet. Berto Gonzalez MD April 02, 2020 23:15
[2020-04-03] VITALS (41 sets, daily range): BP systolic 66–168; BP diastolic 28–73
--- NOTE | 2020-04-03 02:59 | Geriatric Medicine Prog Note ---
DATE: 04/02/2020 SUBJECTIVE: improving respiratory failure. OBJECTIVE: VITAL SIGNS: Blood pressure 108/52, pulse 57, respiratory rate 18, temperature 98. HEAD AND NECK: Unremarkable. LUNGS: . HEART: Heart sounds are distant. LABORATORY DATA: Glucose 97 mg%. IMPRESSION: 1. Diabetes mellitus, type 2, controlled. 2. Hyponatremia, sodium 129. The patient was started on 500 mL of 2% 30 mL/hour, 500 mL x1 dose and then NS at 75 mL/hour. 33 mL per NG tube. blood sugar of 90 mg%. No need for Levemir unless the glucose goes about 200 mg%. Ashish Tolbert M.D. DR: WENCESLAO JOB#: [id number] CC:
[2020-04-03] MEDS: DOPamine 400mg/250ml 250 ML IV SCH ×5 (03:01→23:46)
[2020-04-03] MEDS: Meropenem 1 GM in NS 55 ML IVPB SCH ×3 (05:03→23:15)
[2020-04-03] MEDS: Lactulose 20gm/30ml UDC ORAL SCH ×3 (05:03→23:15)
[2020-04-03 05:30] LABS: HEMATOCRIT 25.4 % (37.0-47.0); HEMOGLOBIN 8.7 G/DL (12.0-16.0); MEAN CORPUSCULAR VOLUME 108 FL (80-99); PLATELET COUNT 97 K/UL (150-450); RED BLOOD COUNT 2.35 M/UL (4.20-5.40); RED CELL DISTRIBUTION WIDTH 24.6 % (11.6-14.8)
[2020-04-03 05:57] LABS: PHOSPHORUS 4.6 MG/DL (2.5-4.9)
[2020-04-03] MEDS: NovoLOG Insulin Flexpen SUBQ SCH ×4 (06:00→18:00)
[2020-04-03] MEDS: Vancomycin 500 MG in NS 110 ML IVPB SCH ×2 (06:00→18:36)
[2020-04-03 06:01] LABS: ALANINE AMINOTRANSFERASE 267 U/L (12-78); ALBUMIN 2.4 G/DL (3.4-5.0); ALBUMIN/GLOBULIN RATIO 0.6 (1.0-2.7); ALKALINE PHOSPHATASE 411 U/L (46-116); ANION GAP 4 mmol/L (5-15); ASPARTATE AMINO TRANSFERASE 750 U/L (15-37); BILIRUBIN,TOTAL 2.3 MG/DL (0.2-1.0); BLOOD UREA NITROGEN 62 mg/dL (7-18); CALCIUM 8.3 MG/DL (8.5-10.1); CARBON DIOXIDE 36 MMOL/L (21-32); CHLORIDE 93 MMOL/L (98-107); CREATININE 0.7 MG/DL (0.55-1.30); POTASSIUM 3.9 MMOL/L (3.5-5.1); SODIUM 133 MMOL/L (136-145)
[2020-04-03 06:05] LABS: BILIRUBIN,DIRECT 1.2 MG/DL (0.0-0.3)
--- NOTE | 2020-04-03 08:01 | General Progress Note ---
Assessment/Plan Problem List: (1) Hypothyroid ICD Codes: E03.9 - Hypothyroidism, unspecified SNOMED: 13577537 (2) COVID-19 ICD Codes: U07.1 - COVID-19 SNOMED: 087478769 (3) Respiratory failure with hypoxia ICD Codes: J96.91 - Respiratory failure, unspecified with hypoxia SNOMED: [id number] Qualifiers: Qualified Codes: J96.01 - Acute respiratory failure with hypoxia (4) Cellulitis ICD Codes: L03.90 - Cellulitis, unspecified SNOMED: 249090076 Qualifiers: Qualified Codes: L03.119 - Cellulitis of unspecified part of limb (5) Hyperglycemia ICD Codes: R73.9 - Hyperglycemia, unspecified SNOMED: 49578960 Status: progressing, unchanged Assessment/Plan: no need for Levemir continue Novolog sliding scale every 6 hours TSH is normal now continue Levothyroxine 50 mcg IV daily Subjective ROS Limited/Unobtainable: Yes Allergies: Coded Allergies: No Known Allergies (Unverified , 02/29/20) Subjective events noted - interval notes reviewed intubated in ICU glucose values are stable insulin requirement significantly diminished Item Value Date Time Bedside Blood Glucose 122 mg/dl H 04/03/20 0600 Bedside Blood Glucose 98 mg/dl 04/03/20 0100 Bedside Blood Glucose 97 mg/dl 04/02/20 2100 Bedside Blood Glucose 109 mg/dl 04/02/20 1700 Bedside Blood Glucose 150 mg/dl H 04/02/20 1322 Bedside Blood Glucose 130 mg/dl H 04/02/20 0900 Bedside Blood Glucose 142 mg/dl H 04/02/20 0500 Objective Last 24 Hour Vital Signs Date Time Temp Pulse Resp B/P (MAP) Pulse Ox O2 Delivery O2 Flow Rate FiO2 04/03/20 07:37 71/30 04/03/20 07:15 86 24 80 04/03/20 07:00 86 25 118/48 (71) 98 04/03/20 06:00 117/54 04/03/20 06:00 117/54 04/03/20 06:00 86 25 117/54 (75) 98 04/03/20 05:00 87 26 117/46 (69) 98 04/03/20 05:00 117/46 04/03/20 05:00 117/46 04/03/20 04:02 Mechanical Ventilator Mechanical Ventilator 04/03/20 04:00 99.0 87 25 119/50 (73) 98 04/03/20 04:00 87 04/03/20 04:00 119/50 04/03/20 04:00 119/50 04/03/20 04:00 80 04/03/20 03:30 87 24 80 04/03/20 03:01 121/44 04/03/20 03:00 86 25 128/52 (77) 98 04/03/20 03:00 128/52 04/03/20 03:00 128/52 04/03/20 02:00 86 25 122/46 (71) 99 04/03/20 02:00 122/46 04/03/20 02:00 122/46 04/03/20 01:51 97/47 04/03/20 01:30 89 26 98/31 (53) 93 04/03/20 01:00 114/37 04/03/20 01:00 114/37 04/03/20 01:00 86 25 114/37 (62) 98 04/03/20 00:00 80 04/03/20 00:00 Mechanical Ventilator Mechanical Ventilator 04/03/20 00:00 87 04/03/20 00:00 99.3 87 25 107/42 (63) 97 04/03/20 00:00 108/44 04/03/20 00:00 108/44 04/02/20 23:30 87 24 80 04/02/20 23:30 87 24 109/45 (66) 96 04/02/20 23:00 87 26 115/46 (69) 98 04/02/20 23:00 111/49 04/02/20 23:00 111/49 04/02/20 22:00 87 25 115/39 (64) 98 04/02/20 22:00 115/39 04/02/20 22:00 115/39 04/02/20 21:30 87 24 117/45 (69) 98 04/02/20 21:00 112/51 04/02/20 21:00 112/51 04/02/20 21:00 87 30 112/51 (71) 97 04/02/20 20:00 Mechanical Ventilator Mechanical Ventilator 04/02/20 20:00 80 5/17/20 20:00 85 04/02/20 20:00 99.0 86 24 110/46 (67) 98 04/02/20 19:30 87 24 80 04/02/20 19:30 118/51 04/02/20 19:00 85 24 99/47 (64) 97 04/02/20 19:00 99/47 04/02/20 19:00 99/47 04/02/20 18:12 68/22 04/02/20 18:00 85 24 102/41 (61) 95 04/02/20 18:00 102/41 04/02/20 18:00 102/41 04/02/20 17:30 85 28 96/44 (61) 97 04/02/20 17:00 96/44 04/02/20 17:00 96/44 04/02/20 17:00 86 24 100/42 (61) 97 04/02/20 16:30 87 24 100/38 (58) 97 04/02/20 16:00 99.1 86 26 97/39 (58) 97 04/02/20 16:00 80 04/02/20 16:00 100/38 04/02/20 16:00 100/38 04/02/20 16:00 86 04/02/20 16:00 Mechanical Ventilator Mechanical Ventilator 04/02/20 15:30 87 24 107/50 (69) 96 04/02/20 15:04 88 24 80 04/02/20 15:00 88 25 108/48 (68) 97 04/02/20 15:00 108/48 04/02/20 15:00 108/48 04/02/20 14:30 87 24 107/48 (67) 95 04/02/20 14:00 88 25 111/53 (72) 95 04/02/20 14:00 88 24 111/53 (72) 95 04/02/20 14:00 109/50 04/02/20 14:00 109/50 04/02/20 13:30 88 24 111/52 (71) 95 04/02/20 13:30 88 25 112/53 (72) 95 04/02/20 13:00 88 25 109/50 (69) 95 04/02/20 13:00 88 26 109/51 (70) 95 04/02/20 13:00 109/50 04/02/20 13:00 109/50 04/02/20 12:30 88 25 112/51 (71) 95 04/02/20 12:30 89 26 108/50 (69) 95 04/02/20 12:00 89 25 106/50 (68) 95 04/02/20 12:00 80 04/02/20 12:00 99.1 89 26 107/52 (70) 96 04/02/20 12:00 106/50 04/02/20 12:00 106/50 04/02/20 12:00 88 04/02/20 12:00 80 04/02/20 12:00 Mechanical Ventilator Mechanical Ventilator 04/02/20 11:30 89 25 108/51 (70) 96 04/02/20 11:30 89 26 110/51 (70) 95 04/02/20 11:11 89 24 80 04/02/20 11:00 90 25 112/54 (73) 96 04/02/20 11:00 114/50 04/02/20 11:00 114/50 04/02/20 10:50 112/56 04/02/20 10:49 112/56 04/02/20 10:30 90 27 111/51 (71) 96 04/02/20 10:00 110/52 04/02/20 10:00 110/52 04/02/20 10:00 90 24 110/52 (71) 95 04/02/20 09:30 90 25 112/51 (71) 96 04/02/20 09:09 90 24 80 04/02/20 09:00 116/50 04/02/20 09:00 116/50 04/02/20 09:00 99.3 90 25 116/50 (72) 96 04/02/20 08:30 90 26 113/51 (71) 95 04/02/20 08:00 Mechanical Ventilator Mechanical Ventilator 04/02/20 08:00 80 04/02/20 08:00 90 24 114/53 (73) 95 04/02/20 08:00 114/53 04/02/20 08:00 114/53 04/02/20 08:00 82 Intake and Output 04/02/20 04/03/20 19:00 07:00 Intake Total 1111.372 ml 1178.7081 ml Output Total 810 ml 630 ml Balance 301.372 ml 548.7081 ml IV Total 1056.372 ml 1173.7081 ml Tube Feeding 55 ml 5 ml Output Urine Total 810 ml 630 ml # Bowel Movements 2 4 Laboratory Tests 04/03/20 03:30: White Blood Count 19.0H, Red Blood Count 2.35L, Hemoglobin 8.7L, Hematocrit 25.4L, Mean Corpuscular Volume 108H, Mean Corpuscular Hemoglobin 36.9H, Mean Corpuscular Hemoglobin Concent 34.3, Red Cell Distribution Width 24.6H, Platelet Count 97L, Mean Platelet Volume 8.9, Neutrophils (%) (Auto) , Lymphocytes (%) (Auto) , Monocytes (%) (Auto) , Eosinophils (%) (Auto) , Basophils (%) (Auto) , Neutrophils % (Manual) [Pending], Lymphocytes % (Manual) [Pending], Platelet Estimate [Pending], Platelet Morphology [Pending], Sodium Level 133L, Potassium Level 3.9, Chloride Level 93L, Carbon Dioxide Level 36H, Anion Gap 4L, Blood Urea Nitrogen 62H, Creatinine 0.7, Estimat Glomerular Filtration Rate > 60, Glucose Level 90, Hemoglobin A1c 5.5, Uric Acid 8.9H, Calcium Level 8.3L, Phosphorus Level 4.6, Magnesium Level 2.7H, Total Bilirubin 2.3H, Direct Bilirubin 1.2H, Aspartate Amino Transf (AST/SGOT) 750H, Alanine Aminotransferase (ALT/SGPT) 267H, Alkaline Phosphatase 411H, C-Reactive Protein , Quantitative 1.8H, Pro-B-Type Natriuretic Peptide 2229H, Total Protein 6.2L, Albumin 2.4L, Globulin 3.8, Albumin/Globulin Ratio 0.6L, Thyroid Stimulating Hormone (TSH) 0.450 Height (Feet): 5 Height (Inches): 1.00 Weight (Pounds): 222 General Appearance: severe distress, other - intubated EENT: other - ETT Neck: normal alignment Cardiovascular: tachycardia Respiratory/Chest: decreased breath sounds Objective Current Medications Medications (Trade) Dose Ordered Sig/Dolores Route PRN Reason Start Time Stop Time Status Last Admin Dose Admin Acetaminophen (Tylenol) 650 mg Q4H PRN NG Temp >100.5 04/01/20 22:00 05/01/20 21:59 Acetaminophen (Tylenol) 650 mg Q4H PRN ORAL Mild Pain (Pain Scale 1-3) 03/13/20 14:53 04/12/20 14:52 04/01/20 21:26 Chlorhexidine Gluconate (Lucretia-Hex 2%) 1 applic DAILY@2000 TOPIC 03/13/20 20:00 06/11/20 19:59 04/02/20 19:58 Dextrose (Dextrose 50%) 25 ml Q30M PRN IV Hypoglycemia 04/03/20 00:00 07/02/20 00:00 Dextrose (Dextrose 50%) 50 ml Q30M PRN IV Hypoglycemia 04/03/20 00:00 07/02/20 00:00 Dopamine HCl/ Dextrose 250 ml @ 0 mls/hr Q24H IV 03/16/20 19:30 06/14/20 19:29 04/03/20 03:01 Fentanyl Citrate 1000 mcg/Sodium Chloride 100 ml @ 0 mls/hr Q24H IV 03/27/20 22:30 04/03/20 22:29 03/27/20 22:56 Fluconazole (Diflucan) 200 mg DAILY NG 03/31/20 11:00 04/07/20 10:59 04/02/20 09:32 Hydralazine HCl (Apresoline) 10 mg Q6H PRN IV For High Blood Pressure 03/24/20 16:45 06/22/20 16:44 Insulin Aspart (NovoLOG) Q6HR SUBQ 04/03/20 00:00 07/02/20 00:00 Lactulose (Cephulac) 40 gm Q8HR ORAL 04/01/20 14:00 04/30/20 17:59 04/03/20 05:03 Levothyroxine Sodium (Synthroid) 50 mcg DAILY IV 03/21/20 09:00 04/17/20 11:59 04/02/20 09:32 Meropenem 1 gm/ Sodium Chloride 55 ml @ 110 mls/hr Q8HR IVPB 03/29/20 14:00 04/07/20 13:59 04/03/20 05:03 Midodrine (Pro-Amatine) 10 mg THREE TIMES A DAY NG 03/27/20 09:00 06/20/20 12:29 04/02/20 18:00 Norepinephrine Bitartrate 4 mg/ Dextrose 250 ml @ 0 mls/hr Q24H PRN IV For hypotension 03/25/20 16:30 04/24/20 16:29 04/03/20 07:37 Vancomycin HCl (Vanco rx to dose) 1 ea DAILY PRN MISC Per rx protocol 04/02/20 11:00 05/02/20 10:59 Vancomycin HCl 500 mg/Sodium Chloride 110 ml @ 110 mls/hr Q12HR@0600,1800 IVPB 04/02/20 18:00 04/07/20 17:59 04/03/20 06:00 Vasopressin 100 units/Sodium Chloride 100 ml @ 0 mls/hr Q24H PRN IV For hypotension 03/16/20 11:00 04/15/20 10:59 03/19/20 18:03 Johan Christopher MD April 03, 2020 08:01
[2020-04-03] MEDS: Fluconazole 100mg tab NG SCH (09:21)
--- NOTE | 2020-04-03 09:29 | Diagnostic Imaging Report ---
Procedure: XRAY Chest 1v Reason for study: Shortness of breath. Comparison films: 03/29/2020. FINDINGS: Endotracheal tube, NG tube and left PICC line remain in place. No significant change bilateral alveolar disease. Cardiac and mediastinal silhouette are within normal limits. Small effusions unchanged. The bony thorax appear unremarkable. IMPRESSION: NO SIGNIFICANT CHANGE COMPARED TO PREVIOUS EXAM.
--- NOTE | 2020-04-03 09:29 | Nephrology Progress Note ---
Assessment/Plan Problem List: (1) Respiratory failure with hypoxia (2) Electrolyte imbalance Assessment: Hyponatremia resolved -hyperkalemia resolved (3) COVID-19 (4) Cellulitis (5) Hypothyroid Assessment Hyponatremia. Serum sodium started drifting down from March 16. Hyperkalemia. Septic shock. Acute respiratory failure. Respiratory failure and COVID pneumonia. History of cirrhosis/splenomegaly Anemia Bilateral lower extremity cellulitis Plan EEG: This is a severely abnormal EEG characterized by very low amplitude, slow activity with no reactivity to external stimulation. COMMENT: The study is consistent with severe encephalopathy. Clinical correlation is recommended. April 03: Hypotensive, on pressors as needed Unresponsive Serum sodium improved Will administer another bolus of 3% saline Continue per consultants Not much to add from renal standpoint to view Prognosis poor, remain full code April 02: Blood pressure is maintained on pressors Remains unresponsive Today's lab reviewed 3% saline ordered EEG is severely abnormal Remains full code however prognosis is poor Discussed with DAO Huber ED April 01: Patient became hypoglycemic so long-acting insulin is held Potassium is 5.7 so albumin and Lasix in addition to Kayexalate is ordered Increase D5W to 100 cc an hour Blood sugar management per Endo Discussed with DAO Gabriel EEG ordered results pending Overall prognosis poor March 15: Increase lactulose dose 1 dose of Kayexalate Continue to monitor liver enzymes Patient unresponsive despite discontinuation of all mind altering medications Neuro eval? March 30 Electrolytes and bicarb improved We will cut down D5W IV fluid Blood sugar better controlled Liver enzymes still remains elevated Discussed with DAO March 13: Worsening leukocytosis Serum sodium lowering Blood sugar still elevated need insulin adjustment Continue to monitor electrolytes and renal parameters Continue per pulmonary Discussed with DAO Sarkar March 28: Serum sodium down to 160 Continue with D5W Continue per pulmonary March 27: Serum sodium vahe Patient retaining CO2 Will start D5W IV fluid Hold Diamox for now until further comments from sourcing assistant Continue to monitor electrolytes Midodrine dose increased March 26: Remains unstable. Lasix and potassium chloride discontinued. IV Diamox initiated. ABG noted. Midodrine initiated. Continue per pulmonary and ID. Statins discontinued due to elevated liver enzymes. Continue to monitor electrolytes and renal parameters and ABG. Patient remains full code. 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 per plan examiner Taper steroids's deferred to sourcing assistant Urine sodium is below 20 Serum ammonia is elevated will start lactulose Patient on Solu-Medrol and Solu-Cortef will discontinue Solu-Cortef Will try to gently diurese for severe edema meanwhile administering albumin 25% as needed Monitor electrolytes and renal parameters We will add midodrine 10 mg 3 times a day via NG tube Decrease dosage of IV Synthroid Discussed with DAO Starr Subjective ROS Limited/Unobtainable: Yes Objective Objective Last 24 Hour Vital Signs Date Time Temp Pulse Resp B/P (MAP) Pulse Ox O2 Delivery O2 Flow Rate FiO2 04/03/20 09:21 67/28 04/03/20 07:37 71/30 04/03/20 07:15 86 24 80 04/03/20 07:00 86 25 118/48 (71) 98 04/03/20 06:00 117/54 04/03/20 06:00 117/54 04/03/20 06:00 86 25 117/54 (75) 98 04/03/20 05:00 87 26 117/46 (69) 98 04/03/20 05:00 117/46 04/03/20 05:00 117/46 04/03/20 04:02 Mechanical Ventilator Mechanical Ventilator 04/03/20 04:00 99.0 87 25 119/50 (73) 98 04/03/20 04:00 87 04/03/20 04:00 119/50 04/03/20 04:00 119/50 04/03/20 04:00 80 04/03/20 03:30 87 24 80 04/03/20 03:01 121/44 04/03/20 03:00 86 25 128/52 (77) 98 04/03/20 03:00 128/52 04/03/20 03:00 128/52 04/03/20 02:00 86 25 122/46 (71) 99 04/03/20 02:00 122/46 04/03/20 02:00 122/46 04/03/20 01:51 97/47 04/03/20 01:30 89 26 98/31 (53) 93 04/03/20 01:00 114/37 04/03/20 01:00 114/37 04/03/20 01:00 86 25 114/37 (62) 98 04/03/20 00:00 80 04/03/20 00:00 Mechanical Ventilator Mechanical Ventilator 04/03/20 00:00 87 04/03/20 00:00 99.3 87 25 107/42 (63) 97 04/03/20 00:00 108/44 04/03/20 00:00 108/44 04/02/20 23:30 87 24 80 04/02/20 23:30 87 24 109/45 (66) 96 04/02/20 23:00 87 26 115/46 (69) 98 04/02/20 23:00 111/49 04/02/20 23:00 111/49 04/02/20 22:00 87 25 115/39 (64) 98 04/02/20 22:00 115/39 04/02/20 22:00 115/39 04/02/20 21:30 87 24 117/45 (69) 98 04/02/20 21:00 112/51 04/02/20 21:00 112/51 04/02/20 21:00 87 30 112/51 (71) 97 04/02/20 20:00 Mechanical Ventilator Mechanical Ventilator 04/02/20 20:00 80 04/02/20 20:00 85 04/02/20 20:00 99.0 86 24 110/46 (67) 98 04/02/20 19:30 87 24 80 04/02/20 19:30 118/51 04/02/20 19:00 85 24 99/47 (64) 97 04/02/20 19:00 99/47 04/02/20 19:00 99/47 04/02/20 18:12 68/22 04/02/20 18:00 85 24 102/41 (61) 95 04/02/20 18:00 102/41 04/02/20 18:00 102/41 04/02/20 17:30 85 28 96/44 (61) 97 04/02/20 17:00 96/44 04/02/20 17:00 96/44 04/02/20 17:00 86 24 100/42 (61) 97 04/02/20 16:30 87 24 100/38 (58) 97 04/02/20 16:00 99.1 86 26 97/39 (58) 97 04/02/20 16:00 80 04/02/20 16:00 100/38 04/02/20 16:00 100/38 04/02/20 16:00 86 04/02/20 16:00 Mechanical Ventilator Mechanical Ventilator 04/02/20 15:30 87 24 107/50 (69) 96 04/02/20 15:04 88 24 80 04/02/20 15:00 88 25 108/48 (68) 97 04/02/20 15:00 108/48 04/02/20 15:00 108/48 04/02/20 14:30 87 24 107/48 (67) 95 04/02/20 14:00 88 25 111/53 (72) 95 04/02/20 14:00 88 24 111/53 (72) 95 04/02/20 14:00 109/50 04/02/20 14:00 109/50 04/02/20 13:30 88 24 111/52 (71) 95 04/02/20 13:30 88 25 112/53 (72) 95 04/02/20 13:00 88 25 109/50 (69) 95 04/02/20 13:00 88 26 109/51 (70) 95 04/02/20 13:00 109/50 04/02/20 13:00 109/50 04/02/20 12:30 88 25 112/51 (71) 95 04/02/20 12:30 89 26 108/50 (69) 95 04/02/20 12:00 89 25 106/50 (68) 95 04/02/20 12:00 80 04/02/20 12:00 99.1 89 26 107/52 (70) 96 04/02/20 12:00 106/50 04/02/20 12:00 106/50 04/02/20 12:00 88 04/02/20 12:00 80 04/02/20 12:00 Mechanical Ventilator Mechanical Ventilator 04/02/20 11:30 89 25 108/51 (70) 96 04/02/20 11:30 89 26 110/51 (70) 95 04/02/20 11:11 89 24 80 04/02/20 11:00 90 25 112/54 (73) 96 04/02/20 11:00 114/50 04/02/20 11:00 114/50 04/02/20 10:50 112/56 04/02/20 10:49 112/56 04/02/20 10:30 90 27 111/51 (71) 96 04/02/20 10:00 110/52 04/02/20 10:00 110/52 04/02/20 10:00 90 24 110/52 (71) 95 04/02/20 09:30 90 25 112/51 (71) 96 Intake and Output 04/02/20 04/03/20 19:00 07:00 Intake Total 1111.372 ml 1178.7081 ml Output Total 810 ml 630 ml Balance 301.372 ml 548.7081 ml IV Total 1056.372 ml 1173.7081 ml Tube Feeding 55 ml 5 ml Output Urine Total 810 ml 630 ml # Bowel Movements 2 4 Laboratory Tests 04/03/20 03:30: White Blood Count 19.0H, Red Blood Count 2.35L, Hemoglobin 8.7L, Hematocrit 25.4L, Mean Corpuscular Volume 108H, Mean Corpuscular Hemoglobin 36.9H, Mean Corpuscular Hemoglobin Concent 34.3, Red Cell Distribution Width 24.6H, Platelet Count 97L, Mean Platelet Volume 8.9, Neutrophils (%) (Auto) , Lymphocytes (%) (Auto) , Monocytes (%) (Auto) , Eosinophils (%) (Auto) , Basophils (%) (Auto) , Differential Total Cells Counted 100, Neutrophils % ( Manual) 81H, Lymphocytes % (Manual) 11L, Monocytes % (Manual) 6, Eosinophils % ( Manual) 2, Basophils % (Manual) 0, Band Neutrophils 0, Platelet Estimate DecreasedL, Platelet Morphology Normal, Polychromasia 1+, Hypochromasia 1+, Anisocytosis 2+, Macrocytosis 1+, Sodium Level 133L, Potassium Level 3.9, Chloride Level 93L, Carbon Dioxide Level 36H, Anion Gap 4L, Blood Urea Nitrogen 62H, Creatinine 0.7, Estimat Glomerular Filtration Rate > 60, Glucose Level 90, Hemoglobin A1c 5.5, Uric Acid 8.9H, Calcium Level 8.3L, Phosphorus Level 4.6, Magnesium Level 2.7H, Total Bilirubin 2.3H, Direct Bilirubin 1.2H, Aspartate Amino Transf (AST/SGOT) 750H, Alanine Aminotransferase (ALT/SGPT) 267H, Alkaline Phosphatase 411H, C-Reactive Protein, Quantitative 1.8H, Pro-B-Type Natriuretic Peptide 2229H, Total Protein 6.2L, Albumin 2.4L, Globulin 3.8, Albumin/Globulin Ratio 0.6L, Thyroid Stimulating Hormone (TSH) 0.450 Height (Feet): 5 Height (Inches): 1.00 Weight (Pounds): 222 General Appearance: no apparent distress Cardiovascular: tachycardia Respiratory/Chest: decreased breath sounds Abdomen: soft Objective No change Cristhian Granados MD April 03, 2020 09:29
--- NOTE | 2020-04-03 09:45 | Infectious Diseases Prog Note ---
Assessment/Plan Assessment/Plan IMPRESSION: 1. Bilateral leg cellulitis,Pseudomonas in culture 2. Anemia. 3. Hypoxemic respiratory failure 4. Thrombocytopenia. 5. Homeless 6. Morbid obesity. 7. Cirrhosis 8. COVID19 pneumonia Positive03/07-03/12, 03/24, 03/27 9. Hepatitis C 10.septic shock 11. Pneumonia with Pseudomonas 12. DM & hyperglycemia 13. Diarrhea, C. difficile negative 14. Leukocytosis 15. Severe encephalopathy RECOMMENDATION: Will f/u COVID19 test Finished Plaquenil ,Actemra & Ivermectin continue Meropenem & Fluconazole Taper steroids Poor prognosis Repeat COVID19 test Case was D/W RN Subjective ROS Limited/Unobtainable: Yes Constitutional: Denies: fever Cardiovascular: Reports: other - on Levophed & Dopamine Allergies: Coded Allergies: No Known Allergies (Unverified , 02/29/20) Objective Vital Signs Last 24 Hour Vital Signs Date Time Temp Pulse Resp B/P (MAP) Pulse Ox O2 Delivery O2 Flow Rate FiO2 04/03/20 09:21 67/28 04/03/20 07:37 71/30 04/03/20 07:15 86 24 80 04/03/20 07:00 86 25 118/48 (71) 98 04/03/20 06:00 117/54 04/03/20 06:00 117/54 04/03/20 06:00 86 25 117/54 (75) 98 04/03/20 05:00 87 26 117/46 (69) 98 04/03/20 05:00 117/46 04/03/20 05:00 117/46 04/03/20 04:02 Mechanical Ventilator Mechanical Ventilator 04/03/20 04:00 99.0 87 25 119/50 (73) 98 04/03/20 04:00 87 04/03/20 04:00 119/50 04/03/20 04:00 119/50 04/03/20 04:00 80 04/03/20 03:30 87 24 80 04/03/20 03:01 121/44 04/03/20 03:00 86 25 128/52 (77) 98 04/03/20 03:00 128/52 04/03/20 03:00 128/52 04/03/20 02:00 86 25 122/46 (71) 99 5/18/20 02:00 122/46 04/03/20 02:00 122/46 04/03/20 01:51 97/47 04/03/20 01:30 89 26 98/31 (53) 93 04/03/20 01:00 114/37 04/03/20 01:00 114/37 04/03/20 01:00 86 25 114/37 (62) 98 04/03/20 00:00 80 04/03/20 00:00 Mechanical Ventilator Mechanical Ventilator 04/03/20 00:00 87 04/03/20 00:00 99.3 87 25 107/42 (63) 97 04/03/20 00:00 108/44 04/03/20 00:00 108/44 04/02/20 23:30 87 24 80 04/02/20 23:30 87 24 109/45 (66) 96 04/02/20 23:00 87 26 115/46 (69) 98 04/02/20 23:00 111/49 04/02/20 23:00 111/49 04/02/20 22:00 87 25 115/39 (64) 98 04/02/20 22:00 115/39 04/02/20 22:00 115/39 04/02/20 21:30 87 24 117/45 (69) 98 04/02/20 21:00 112/51 04/02/20 21:00 112/51 04/02/20 21:00 87 30 112/51 (71) 97 04/02/20 20:00 Mechanical Ventilator Mechanical Ventilator 04/02/20 20:00 80 04/02/20 20:00 85 04/02/20 20:00 99.0 86 24 110/46 (67) 98 04/02/20 19:30 87 24 80 04/02/20 19:30 118/51 04/02/20 19:00 85 24 99/47 (64) 97 04/02/20 19:00 99/47 04/02/20 19:00 99/47 04/02/20 18:12 68/22 04/02/20 18:00 85 24 102/41 (61) 95 04/02/20 18:00 102/41 04/02/20 18:00 102/41 04/02/20 17:30 85 28 96/44 (61) 97 04/02/20 17:00 96/44 5/17/20 17:00 96/44 04/02/20 17:00 86 24 100/42 (61) 97 04/02/20 16:30 87 24 100/38 (58) 97 04/02/20 16:00 99.1 86 26 97/39 (58) 97 04/02/20 16:00 80 04/02/20 16:00 100/38 04/02/20 16:00 100/38 04/02/20 16:00 86 04/02/20 16:00 Mechanical Ventilator Mechanical Ventilator 04/02/20 15:30 87 24 107/50 (69) 96 04/02/20 15:04 88 24 80 04/02/20 15:00 88 25 108/48 (68) 97 04/02/20 15:00 108/48 04/02/20 15:00 108/48 04/02/20 14:30 87 24 107/48 (67) 95 04/02/20 14:00 88 25 111/53 (72) 95 04/02/20 14:00 88 24 111/53 (72) 95 04/02/20 14:00 109/50 04/02/20 14:00 109/50 04/02/20 13:30 88 24 111/52 (71) 95 04/02/20 13:30 88 25 112/53 (72) 95 04/02/20 13:00 88 25 109/50 (69) 95 04/02/20 13:00 88 26 109/51 (70) 95 04/02/20 13:00 109/50 04/02/20 13:00 109/50 04/02/20 12:30 88 25 112/51 (71) 95 04/02/20 12:30 89 26 108/50 (69) 95 04/02/20 12:00 89 25 106/50 (68) 95 04/02/20 12:00 80 04/02/20 12:00 99.1 89 26 107/52 (70) 96 04/02/20 12:00 106/50 04/02/20 12:00 106/50 04/02/20 12:00 88 04/02/20 12:00 80 04/02/20 12:00 Mechanical Ventilator Mechanical Ventilator 04/02/20 11:30 89 25 108/51 (70) 96 04/02/20 11:30 89 26 110/51 (70) 95 04/02/20 11:11 89 24 80 04/02/20 11:00 90 25 112/54 (73) 96 04/02/20 11:00 114/50 04/02/20 11:00 114/50 04/02/20 10:50 112/56 04/02/20 10:49 112/56 04/02/20 10:30 90 27 111/51 (71) 96 04/02/20 10:00 110/52 04/02/20 10:00 110/52 04/02/20 10:00 90 24 110/52 (71) 95 Height (Feet): 5 Height (Inches): 1.00 Weight (Pounds): 222 HEENT: mucous membranes moist, other - orally intubated Respiratory/Chest: other - on Ventilator, FIO2=80% Cardiovascular: normal rate, other - PICC line Abdomen: soft, non tender, other - NG tube feeding Extremities: other - generalized edema Neurologic/Psychiatric: unresponsiveness Microbiology Date/Time Source Procedure Growth Status 04/02/20 13:40 Indwelling Cath Urine Culture - Preliminary NO GROWTH Resulted Laboratory Tests Test 04/03/20 03:30 White Blood Count 19.0 K/UL (4.8-10.8) H Red Blood Count 2.35 M/UL (4.20-5.40) L Hemoglobin 8.7 G/DL (12.0-16.0) L Hematocrit 25.4 % (37.0-47.0) L Mean Corpuscular Volume 108 FL (80-99) H Mean Corpuscular Hemoglobin 36.9 PG (27.0-31.0) H Mean Corpuscular Hemoglobin Concent 34.3 G/DL (32.0-36.0) Red Cell Distribution Width 24.6 % (11.6-14.8) H Platelet Count 97 K/UL (150-450) L Mean Platelet Volume 8.9 FL (6.5-10.1) Neutrophils (%) (Auto) % (45.0-75.0) Lymphocytes (%) (Auto) % (20.0-45.0) Monocytes (%) (Auto) % (1.0-10.0) Eosinophils (%) (Auto) % (0.0-3.0) Basophils (%) (Auto) % (0.0-2.0) Differential Total Cells Counted 100 Neutrophils % (Manual) 81 % (45-75) H Lymphocytes % (Manual) 11 % (20-45) L Monocytes % (Manual) 6 % (1-10) Eosinophils % (Manual) 2 % (0-3) Basophils % (Manual) 0 % (0-2) Band Neutrophils 0 % (0-8) Platelet Estimate Decreased L Platelet Morphology Normal Polychromasia 1+ Hypochromasia 1+ Anisocytosis 2+ Macrocytosis 1+ Sodium Level 133 MMOL/L (136-145) L Potassium Level 3.9 MMOL/L (3.5-5.1) Chloride Level 93 MMOL/L (98-107) L Carbon Dioxide Level 36 MMOL/L (21-32) H Anion Gap 4 mmol/L (5-15) L Blood Urea Nitrogen 62 mg/dL (7-18) H Creatinine 0.7 MG/DL (0.55-1.30) Estimat Glomerular Filtration Rate > 60 mL/min (>60) Glucose Level 90 MG/DL (74-106) Hemoglobin A1c 5.5 % (4.3-6.0) Uric Acid 8.9 MG/DL (2.6-7.2) H Calcium Level 8.3 MG/DL (8.5-10.1) L Phosphorus Level 4.6 MG/DL (2.5-4.9) Magnesium Level 2.7 MG/DL (1.8-2.4) H Total Bilirubin 2.3 MG/DL (0.2-1.0) H Direct Bilirubin 1.2 MG/DL (0.0-0.3) H Aspartate Amino Transf (AST/SGOT) 750 U/L (15-37) H Alanine Aminotransferase (ALT/SGPT) 267 U/L (12-78) H Alkaline Phosphatase 411 U/L (46-116) H C-Reactive Protein, Quantitative 1.8 mg/dL (0.00-0.90) H Pro-B-Type Natriuretic Peptide 2229 pg/mL (0-125) H Total Protein 6.2 G/DL (6.4-8.2) L Albumin 2.4 G/DL (3.4-5.0) L Globulin 3.8 g/dL Albumin/Globulin Ratio 0.6 (1.0-2.7) L Thyroid Stimulating Hormone (TSH) 0.450 uiU/mL (0.358-3.740) Current Medications Medications (Trade) Dose Ordered Sig/Dolores Route PRN Reason Start Time Stop Time Status Last Admin Dose Admin Acetaminophen (Tylenol) 650 mg Q4H PRN NG Temp >100.5 04/01/20 22:00 05/01/20 21:59 Acetaminophen (Tylenol) 650 mg Q4H PRN ORAL Mild Pain (Pain Scale 1-3) 03/13/20 14:53 04/12/20 14:52 04/01/20 21:26 Chlorhexidine Gluconate (Lucretia-Hex 2%) 1 applic DAILY@2000 TOPIC 03/13/20 20:00 06/11/20 19:59 04/02/20 19:58 Dextrose (Dextrose 50%) 25 ml Q30M PRN IV Hypoglycemia 04/03/20 00:00 07/02/20 00:00 Dextrose (Dextrose 50%) 50 ml Q30M PRN IV Hypoglycemia 04/03/20 00:00 07/02/20 00:00 Dopamine HCl/ Dextrose 250 ml @ 0 mls/hr Q24H IV 03/16/20 19:30 06/14/20 19:29 04/03/20 09:21 Fentanyl Citrate 1000 mcg/Sodium Chloride 100 ml @ 0 mls/hr Q24H IV 03/27/20 22:30 04/03/20 22:29 03/27/20 22:56 Fluconazole (Diflucan) 200 mg DAILY NG 03/31/20 11:00 04/07/20 10:59 04/03/20 09:21 Hydralazine HCl (Apresoline) 10 mg Q6H PRN IV For High Blood Pressure 03/24/20 16:45 06/22/20 16:44 Insulin Aspart (NovoLOG) Q6HR SUBQ 04/03/20 00:00 07/02/20 00:00 Lactulose (Cephulac) 40 gm Q8HR ORAL 04/01/20 14:00 04/30/20 17:59 04/03/20 05:03 Levothyroxine Sodium (Synthroid) 50 mcg QOD IV 04/05/20 09:00 04/17/20 11:59 Meropenem 1 gm/ Sodium Chloride 55 ml @ 110 mls/hr Q8HR IVPB 03/29/20 14:00 04/07/20 13:59 04/03/20 05:03 Midodrine (Pro-Amatine) 10 mg THREE TIMES A DAY NG 03/27/20 09:00 06/20/20 12:29 04/02/20 18:00 Norepinephrine Bitartrate 4 mg/ Dextrose 250 ml @ 0 mls/hr Q24H PRN IV For hypotension 03/25/20 16:30 04/24/20 16:29 04/03/20 07:37 Sodium Chloride 250 ml @ 30 mls/hr ONCE ONCE IV 04/03/20 11:00 04/03/20 19:19 Vancomycin HCl (Vanco rx to dose) 1 ea DAILY PRN MISC Per rx protocol 04/02/20 11:00 05/02/20 10:59 Vancomycin HCl 500 mg/Sodium Chloride 110 ml @ 110 mls/hr Q12HR@0600,1800 IVPB 04/02/20 18:00 04/07/20 17:59 04/03/20 06:00 Vasopressin 100 units/Sodium Chloride 100 ml @ 0 mls/hr Q24H PRN IV For hypotension 03/16/20 11:00 04/15/20 10:59 03/19/20 18:03 Jonathno Shah MD April 03, 2020 09:45
[2020-04-03] MEDS: Midodrine 10mg tab NG SCH ×3 (10:00→18:35)
--- NOTE | 2020-04-03 10:30 | Consultation ---
DATE OF CONSULTATION: 04/01/2020 NEUROLOGIC CONSULTATION Telehealth Coronavirus neurologic evaluation HISTORY OF PRESENT ILLNESS: The patient is a 59-year-old woman, here admitted on February 29, 2020 with bilateral leg cellulitis, anemia and leg pain. The patient was subsequently found to have cellulitis on March 01, 2020 with Pseudomonas aeruginosa bacteria. She also was found to have COVID virus 19 PCR test 4 times. She developed COVID virus pneumonia with headache, sufficiently elevated, pneumonia . Initially, she had no shortness of breath. The patient, during her hospital stay, had white counts over 20,000, today at 23,100. 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 Her renal function is near normal. I was asked to see the patient because of the change in her mental status. The patient is admitted at essentially normal mental status as far as I can tell. The patient's initial chest x-ray revealed a left basilar infiltrate versus edema and cardiomegaly. The patient's chest x-ray on March 25, 2020 revealed diffuse bilateral interstitial airspace opacities mildly improved compared to the prior examination. The patient has had a lung VQ scan on March 09, 2020, revealing no evidence of pulmonary emboli. could not be done. The patient developed severe hypernatremia with sodium of 171 on March 27, 2020. Initially, her sodiums were basically within normal range. Calcium is initially well. She had a low iron-binding capacity on March 02, 2020. The liver function tests initially were slightly elevated, but over time increased to the point where her GGT was 746, alkaline phosphatase was 408, AST was 744. Albumin were low. The C-reactive protein on March 14, 2020 was 16.2. ProTime was slightly elevated. D-dimers were high, initially around . There is no history of seizures during this admission, there is previous history of seizures. The patient also developed hypotension and severe hypoxia. She has not had a CT scan of the brain. The patient was intubated, had to be placed on Levophed and fentanyl, however, nurses told me her fentanyl was on March 27, 2020, supposed to be stopped on April 03, 2020, though according to the nurse, she was not on fentanyl at this time. The patient is also on vasopressin, fluconazole, furosemide, Lasix 1 dose given, hydralazine, insulin for diabetes type 2, lactulose, Levemir, levothyroxine, methylprednisolone, midodrine 10 mg, meropenem and dopamine 400 mg IV q.24 hours. There is no other history available. PAST MEDICAL HISTORY/PAST MEDICAL ILLNESSES: Hypothyroidism. PAST SURGICAL HISTORY: Unavailable. ALLERGIES: There are no known allergies. MEDICATIONS: She is on levothyroxine sodium prior to her admission. REVIEW OF SYSTEMS: CONSTITUTIONAL: She has lower extremity myalgias and arthralgias on admission. No previous TIA or stroke symptoms. PHYSICAL EXAMINATION: GENERAL: Telehealth nurse taking care of the patient. VITAL SIGNS: Blood pressure is 120/58 with pulse oximetry of 91, pulse is 86, temperature is 98.6 degrees. The patient's FiO2 is 100% on the ventilator and she is not overriding the ventilator at a respiratory rate of 44. The pulse oximetries have been below 90, low is at least 83, fluctuated. MENTAL STATUS EXAMINATION: The patient is comatose. The patient did move her head spontaneously. She opening the eye to pain. There is no response to voice command. CRANIAL NERVE EXAMINATION: CRANIAL NERVES III AND : The eyes are in the midline. The pupils are about 5 mm either minimally or not reactive to light. CRANIAL NERVE V: No reaction. There is no corneal reaction to fine touch. CRANIAL NERVE VII: There is no obvious facial asymmetry. CRANIAL NERVES IX AND X: The patient gags. MUSCLE EXAMINATION: Tone is probably decreased. There is movement of her legs to pain, either withdrawal tolerance of corticoid or decerebrate rigidity. There is no arm movement to pain. REFLEXES: No Babinski signs noted. Sensory exam is intact to pain. IMPRESSION: 1. This patient has diffuse or multifocal most likely metabolic encephalopathy. The problems to be excluded are: 1.1. Basilar artery thrombosis. 1.2. Nonconvulsive status epilepticus. 2. The patient did have an EEG yesterday, results of which are not on the chart yet. 3. Assuming that the pupils are not reactive, basilar thrombosis has to be in the differential diagnosis although dopamine can cause mydriasis. Pupils may not be reactive too much because of autonomic diabetic neuropathy. 4. THE PATIENT'S METABOLIC ENCEPHALOPATHY IS CAUSED BY: 4.1. Septic encephalopathy from COVID pneumonia as well as the residual cellulitis. 4.2. Hypoxic encephalopathy, tremor, pneumonia, or decrease of vascular flow from pulmonary artery, and possibly decreased vascular flow with multiple small emboli. D-dimer could suggest thrombophlebitis. However, there is no evidence initially of embolic pulmonary infarctions. She could have disseminated intravascular coagulation and a fibrinogen will be ordered as well as another D-dimer. 5. An EEG can exclude nonconvulsive status epilepticus though we will not rule out basilar artery thrombosis. Only a CT scan of the brain or MRI of the brain can, but will not be done because of the COVID infection. 6. As far as treatment is concerned, she may want to consider anticoagulation. Unfortunately, we cannot receive any antivirals in this patient. If this is just a metabolic problem, then reversing her metabolic encephalopathy including more aggressive treatments with lactulose for liver disease should be done as well as reversing her prior pneumonia. PLAN: 1. Fibrinogen and D-dimer levels. 2. Anticardiolipin antibodies. 3. Fibrin split products. 4. about this case. Thank you for this interesting case. Leonardo Acosta MD DR: Marisela JOB#: [id number] CC:
--- NOTE | 2020-04-03 10:39 | General Progress Note ---
Assessment/Plan Status: progressing, unchanged Assessment/Plan: macrocytic anemia elevated LFTS cirrhosis cellulitis elevated Ammonia levels respiratory distress>>> now failure COVID positive pna NGTF add reglan 5 mg iv Q6 for elevate residuals abd us>> reordered>>>>pending!!!! Xifaxan and lactulose monitor ammonia level fu stool ob>>>neg GI procedures if needed abx per id hepatitis panel>>>>>positive for hep C>>> needs out patient fu poor prognosis will fu Subjective ROS Limited/Unobtainable: No Allergies: Coded Allergies: No Known Allergies (Unverified , 02/29/20) Objective Last 24 Hour Vital Signs Date Time Temp Pulse Resp B/P (MAP) Pulse Ox O2 Delivery O2 Flow Rate FiO2 04/03/20 10:00 89 24 129/70 (89) 98 04/03/20 09:30 81 24 97/47 (64) 98 04/03/20 09:21 67/28 04/03/20 09:00 76 25 66/28 (41) 98 04/03/20 08:30 87 24 121/61 (81) 98 04/03/20 08:00 98.8 87 24 127/49 (75) 98 04/03/20 08:00 80 04/03/20 07:37 71/30 04/03/20 07:30 82 24 71/30 (44) 98 04/03/20 07:15 86 24 80 04/03/20 07:00 86 25 118/48 (71) 98 04/03/20 06:00 117/54 04/03/20 06:00 117/54 04/03/20 06:00 86 25 117/54 (75) 98 04/03/20 05:00 87 26 117/46 (69) 98 04/03/20 05:00 117/46 04/03/20 05:00 117/46 04/03/20 04:02 Mechanical Ventilator Mechanical Ventilator 04/03/20 04:00 99.0 87 25 119/50 (73) 98 04/03/20 04:00 87 04/03/20 04:00 119/50 04/03/20 04:00 119/50 04/03/20 04:00 80 04/03/20 03:30 87 24 80 04/03/20 03:01 121/44 04/03/20 03:00 86 25 128/52 (77) 98 04/03/20 03:00 128/52 04/03/20 03:00 128/52 04/03/20 02:00 86 25 122/46 (71) 99 04/03/20 02:00 122/46 04/03/20 02:00 122/46 04/03/20 01:51 97/47 04/03/20 01:30 89 26 98/31 (53) 93 04/03/20 01:00 114/37 04/03/20 01:00 114/37 04/03/20 01:00 86 25 114/37 (62) 98 04/03/20 00:00 80 04/03/20 00:00 Mechanical Ventilator Mechanical Ventilator 04/03/20 00:00 87 04/03/20 00:00 99.3 87 25 107/42 (63) 97 04/03/20 00:00 108/44 04/03/20 00:00 108/44 04/02/20 23:30 87 24 80 04/02/20 23:30 87 24 109/45 (66) 96 04/02/20 23:00 87 26 115/46 (69) 98 04/02/20 23:00 111/49 04/02/20 23:00 111/49 04/02/20 22:00 87 25 115/39 (64) 98 04/02/20 22:00 115/39 04/02/20 22:00 115/39 04/02/20 21:30 87 24 117/45 (69) 98 04/02/20 21:00 112/51 04/02/20 21:00 112/51 04/02/20 21:00 87 30 112/51 (71) 97 04/02/20 20:00 Mechanical Ventilator Mechanical Ventilator 04/02/20 20:00 80 04/02/20 20:00 85 04/02/20 20:00 99.0 86 24 110/46 (67) 98 04/02/20 19:30 87 24 80 04/02/20 19:30 118/51 04/02/20 19:00 85 24 99/47 (64) 97 04/02/20 19:00 99/47 04/02/20 19:00 99/47 04/02/20 18:12 68/22 04/02/20 18:00 85 24 102/41 (61) 95 04/02/20 18:00 102/41 04/02/20 18:00 102/41 04/02/20 17:30 85 28 96/44 (61) 97 04/02/20 17:00 96/44 04/02/20 17:00 96/44 04/02/20 17:00 86 24 100/42 (61) 97 04/02/20 16:30 87 24 100/38 (58) 97 04/02/20 16:00 99.1 86 26 97/39 (58) 97 04/02/20 16:00 80 04/02/20 16:00 100/38 04/02/20 16:00 100/38 04/02/20 16:00 86 04/02/20 16:00 Mechanical Ventilator Mechanical Ventilator 04/02/20 15:30 87 24 107/50 (69) 96 04/02/20 15:04 88 24 80 04/02/20 15:00 88 25 108/48 (68) 97 04/02/20 15:00 108/48 04/02/20 15:00 108/48 04/02/20 14:30 87 24 107/48 (67) 95 04/02/20 14:00 88 25 111/53 (72) 95 04/02/20 14:00 88 24 111/53 (72) 95 04/02/20 14:00 109/50 04/02/20 14:00 109/50 04/02/20 13:30 88 24 111/52 (71) 95 04/02/20 13:30 88 25 112/53 (72) 95 04/02/20 13:00 88 25 109/50 (69) 95 04/02/20 13:00 88 26 109/51 (70) 95 04/02/20 13:00 109/50 04/02/20 13:00 109/50 04/02/20 12:30 88 25 112/51 (71) 95 04/02/20 12:30 89 26 108/50 (69) 95 04/02/20 12:00 89 25 106/50 (68) 95 04/02/20 12:00 80 04/02/20 12:00 99.1 89 26 107/52 (70) 96 04/02/20 12:00 106/50 5/17/20 12:00 106/50 04/02/20 12:00 88 04/02/20 12:00 80 04/02/20 12:00 Mechanical Ventilator Mechanical Ventilator 04/02/20 11:30 89 25 108/51 (70) 96 04/02/20 11:30 89 26 110/51 (70) 95 04/02/20 11:11 89 24 80 04/02/20 11:00 90 25 112/54 (73) 96 04/02/20 11:00 114/50 04/02/20 11:00 114/50 04/02/20 10:50 112/56 04/02/20 10:49 112/56 Intake and Output 04/02/20 04/03/20 19:00 07:00 Intake Total 1111.372 ml 1178.7081 ml Output Total 810 ml 630 ml Balance 301.372 ml 548.7081 ml IV Total 1056.372 ml 1173.7081 ml Tube Feeding 55 ml 5 ml Output Urine Total 810 ml 630 ml # Bowel Movements 2 4 Laboratory Tests 04/03/20 03:30: White Blood Count 19.0H, Red Blood Count 2.35L, Hemoglobin 8.7L, Hematocrit 25.4L, Mean Corpuscular Volume 108H, Mean Corpuscular Hemoglobin 36.9H, Mean Corpuscular Hemoglobin Concent 34.3, Red Cell Distribution Width 24.6H, Platelet Count 97L, Mean Platelet Volume 8.9, Neutrophils (%) (Auto) , Lymphocytes (%) (Auto) , Monocytes (%) (Auto) , Eosinophils (%) (Auto) , Basophils (%) (Auto) , Differential Total Cells Counted 100, Neutrophils % ( Manual) 81H, Lymphocytes % (Manual) 11L, Monocytes % (Manual) 6, Eosinophils % ( Manual) 2, Basophils % (Manual) 0, Band Neutrophils 0, Platelet Estimate DecreasedL, Platelet Morphology Normal, Polychromasia 1+, Hypochromasia 1+, Anisocytosis 2+, Macrocytosis 1+, Sodium Level 133L, Potassium Level 3.9, Chloride Level 93L, Carbon Dioxide Level 36H, Anion Gap 4L, Blood Urea Nitrogen 62H, Creatinine 0.7, Estimat Glomerular Filtration Rate > 60, Glucose Level 90, Hemoglobin A1c 5.5, Uric Acid 8.9H, Calcium Level 8.3L, Phosphorus Level 4.6, Magnesium Level 2.7H, Total Bilirubin 2.3H, Direct Bilirubin 1.2H, Aspartate Amino Transf (AST/SGOT) 750H, Alanine Aminotransferase (ALT/SGPT) 267H, Alkaline Phosphatase 411H, C-Reactive Protein, Quantitative 1.8H, Pro-B-Type Natriuretic Peptide 2229H, Total Protein 6.2L, Albumin 2.4L, Globulin 3.8, Albumin/Globulin Ratio 0.6L, Thyroid Stimulating Hormone (TSH) 0.450 Height (Feet): 5 Height (Inches): 1.00 Weight (Pounds): 222 General Appearance: lethargic EENT: normal ENT inspection Neck: supple Cardiovascular: tachycardia Respiratory/Chest: decreased breath sounds Abdomen: soft, hypoactive bowel sounds Extremities: non-tender Tam Spicer MD April 03, 2020 10:39
--- NOTE | 2020-04-03 10:54 | Hematology/Onc Progress Note ---
Assessment/Plan Assessment/Plan Assessment and Recs # Pancytopenia -- multiple etiologies could be related to underlying liver disease, medication-induced, infection versus viral syndrome versus underlying bone marrow cause, in this case, has severe liver disease and cirrhosis, HEP C++ , also cellulitis, COVID19++ --> peripheral smear has been ordered and does not show significant abnormalities and none noted --> Medications have been reviewed --> Continue to monitor for improvement, trend cbc --> Hep panel and HIV are both negative --> US abd ordered to r/o cirrhosis and hepatosplenomegaly ->CIRRHOSIS IS NOTED , LARGE SPLEEN --> reverse isolation if ANC is <2000 --> Give neupogen if ANC <1000 --> Transfuse if hgb <7, with 1 unit prbc --> anemia panel ordered as well-->CW acd --> hgb trend 7-->7.1-->8.4-->8.2 -->8.7-->9.9-->9.2-->9.5-->9.1-->10.1 -->9 --> plt 145k-->152-->162k-->149k-->121k-->171k-->149-->163-->135 --> wbc 3.4-->3.5->3.9->4.4-->11-->10.8 -->15->23-->26-->27-->26.7 --> abx: sameer/rifaximin-->levaquin /vanc-->sameer # Leukocytosis with Cellulitis of the lower extremities --> continue abx as needed as per id --> Started on IV antibiotics-->azithro/cefepime-->levaquin-->sameer --> as per surg recs, wound care --> on steriods at this time, likely contributor # Ftt --> remains on mirtazapine --> daily weights # Elevated LFTS --> as per gi --> due to cirrhosis # Respiratory failure --> s/p intubation 03/16 --> prone positioning as needed by pulm # Dvt ppx lovenox sq # Prognosis is poor The timing of this note does not necessarily reflect the time of the patient was seen. Greatly appreciate consultation. Subjective Allergies: Coded Allergies: No Known Allergies (Unverified , 02/29/20) All Systems: reviewed and negative except above Subjective 03/02 no events, no bleeding, hgb 7.1, no hemolysis 03/03 s/p blood, hgb improved to 8.4, stool ob negtive, on abx 03/05 asleep, no acute distress, hgb 8.2 03/06 remains comfortable, on abx, plt remains low 03/07 is on nonrebreather, no night sweats, labs are noted 03/08 labs reviewed, being diuresed, seen by cards, psych, labs noted 03/09 lasix adjusted, wbc remains low at 3.9, reviewed meds, smear 03/10 no night sweats, no bleeding, labs noted, smear noted 03/12 labs noted, none completed, have reordered, cellulitis better 03/13 is continuing with chest pain, cards aware, no further studies until covid neg 03/14 labs noted, no bleeding, diuresis as needed, hgb stable 03/15 alseep is cooperative, no bleeding, meds noted 03/16 no bleeding or chills, hgb 10.8, no night sweats, no major events 03/17 now intubated, no bleeding, labs noted, dw rn 03/19 remains intubated, no bleeding, labs noted, on pressors 03/20 prone posiition, seen by gi and renal, nob leeding, hgb 10.1 03/21 sedated, remains agitated, pulling on 2p restraints, no bleeding 03/22 icu, h/h stable, finished plaq/zithro, no acute distress 03/23 in icu, remains restless no bleeding, labs noted, no bleeding 03/24 in icu, poor prognosis, no night sweats, no fc 03/26 on vent, unresponsive, no bleeding, wbc high is on abx and steriods 03/27 remains on vent, ngt, no bleeding, already on abx on steriods 03/28 labs noted, no bleeding, wbc 23k, hgb 9, still with ongoing leukocytosis, ngt feeds 03/29 icu, started on sameer, steroids being tapered, wbc 26.4, no sob 03/30 no major changes, in icu, resp distress, on vent, wbc remains elevated 03/31 picc intact, wbc 26, amonia 104, no sob, continues on steroids 04/02 icu, nonverbal, vent, no distress 04/03 remains comotose is on vent, and pressors, no bleeding, dw rn in icu Objective Objective Current Medications Medications (Trade) Dose Ordered Sig/Dolores Route PRN Reason Start Time Stop Time Status Last Admin Dose Admin Acetaminophen (Tylenol) 650 mg Q4H PRN NG Temp >100.5 04/01/20 22:00 05/01/20 21:59 Acetaminophen (Tylenol) 650 mg Q4H PRN ORAL Mild Pain (Pain Scale 1-3) 03/13/20 14:53 04/12/20 14:52 04/01/20 21:26 Chlorhexidine Gluconate (Lucretia-Hex 2%) 1 applic DAILY@2000 TOPIC 03/13/20 20:00 06/11/20 19:59 04/02/20 19:58 Dextrose (Dextrose 50%) 25 ml Q30M PRN IV Hypoglycemia 04/03/20 00:00 07/02/20 00:00 Dextrose (Dextrose 50%) 50 ml Q30M PRN IV Hypoglycemia 04/03/20 00:00 07/02/20 00:00 Dopamine HCl/ Dextrose 250 ml @ 0 mls/hr Q24H IV 03/16/20 19:30 06/14/20 19:29 04/03/20 09:21 Fentanyl Citrate 1000 mcg/Sodium Chloride 100 ml @ 0 mls/hr Q24H IV 03/27/20 22:30 04/03/20 22:29 03/27/20 22:56 Fluconazole (Diflucan) 200 mg DAILY NG 03/31/20 11:00 04/07/20 10:59 04/03/20 09:21 Hydralazine HCl (Apresoline) 10 mg Q6H PRN IV For High Blood Pressure 03/24/20 16:45 06/22/20 16:44 Insulin Aspart (NovoLOG) Q6HR SUBQ 04/03/20 00:00 07/02/20 00:00 Lactulose (Cephulac) 40 gm Q8HR ORAL 04/01/20 14:00 04/30/20 17:59 04/03/20 05:03 Levothyroxine Sodium (Synthroid) 50 mcg QOD IV 04/05/20 09:00 04/17/20 11:59 Meropenem 1 gm/ Sodium Chloride 55 ml @ 110 mls/hr Q8HR IVPB 03/29/20 14:00 04/07/20 13:59 04/03/20 05:03 Metoclopramide HCl (Reglan) 5 mg EVERY 6 HOURS IVP 04/03/20 12:00 05/03/20 11:59 Midodrine (Pro-Amatine) 10 mg THREE TIMES A DAY NG 03/27/20 09:00 06/20/20 12:29 04/02/20 18:00 Norepinephrine Bitartrate 4 mg/ Dextrose 250 ml @ 0 mls/hr Q24H PRN IV For hypotension 03/25/20 16:30 04/24/20 16:29 04/03/20 07:37 Sodium Chloride 250 ml @ 30 mls/hr ONCE ONCE IV 04/03/20 11:00 04/03/20 19:19 Vancomycin HCl (Vanco rx to dose) 1 ea DAILY PRN MISC Per rx protocol 04/02/20 11:00 05/02/20 10:59 Vancomycin HCl 500 mg/Sodium Chloride 110 ml @ 110 mls/hr Q12HR@0600,1800 IVPB 04/02/20 18:00 04/07/20 17:59 04/03/20 06:00 Vasopressin 100 units/Sodium Chloride 100 ml @ 0 mls/hr Q24H PRN IV For hypotension 03/16/20 11:00 04/15/20 10:59 03/19/20 18:03 Last 24 Hour Vital Signs Date Time Temp Pulse Resp B/P (MAP) Pulse Ox O2 Delivery O2 Flow Rate FiO2 04/03/20 10:30 89 24 107/55 (72) 99 04/03/20 10:00 89 24 129/70 (89) 98 04/03/20 09:30 81 24 97/47 (64) 98 04/03/20 09:21 67/28 04/03/20 09:00 76 25 66/28 (41) 98 04/03/20 08:30 87 24 121/61 (81) 98 04/03/20 08:00 98.8 87 24 127/49 (75) 98 04/03/20 08:00 80 04/03/20 08:00 Mechanical Ventilator Mechanical Ventilator 04/03/20 08:00 80 20 07:37 71/30 5 07:30 82 24 71/30 (44) 98 20 07:15 86 24 80 20 07:00 86 25 118/48 (71) 98 04/03/20 06:00 117/54 04/03/20 06:00 117/54 04/03/20 06:00 86 25 117/54 (75) 98 04/03/20 05:00 87 26 117/46 (69) 98 04/03/20 05:00 117/46 04/03/20 05:00 117/46 04/03/20 04:02 Mechanical Ventilator Mechanical Ventilator 04/03/20 04:00 99.0 87 25 119/50 (73) 98 04/03/20 04:00 87 04/03/20 04:00 119/50 04/03/20 04:00 119/50 04/03/20 04:00 80 04/03/20 03:30 87 24 80 04/03/20 03:01 121/44 04/03/20 03:00 86 25 128/52 (77) 98 04/03/20 03:00 128/52 04/03/20 03:00 128/52 04/03/20 02:00 86 25 122/46 (71) 99 04/03/20 02:00 122/46 04/03/20 02:00 122/46 04/03/20 01:51 97/47 04/03/20 01:30 89 26 98/31 (53) 93 20 01:00 114/37 04/03/20 01:00 114/37 04/03/20 01:00 86 25 114/37 (62) 98 20 00:00 80 04/03/20 00:00 Mechanical Ventilator Mechanical Ventilator 04/03/20 00:00 87 04/03/20 00:00 99.3 87 25 107/42 (63) 97 20 00:00 108/44 04/03/20 00:00 108/44 04/02/20 23:30 87 24 80 04/02/20 23:30 87 24 109/45 (66) 96 04/02/20 23:00 87 26 115/46 (69) 98 04/02/20 23:00 111/49 04/02/20 23:00 111/49 04/02/20 22:00 87 25 115/39 (64) 98 04/02/20 22:00 115/39 04/02/20 22:00 115/39 04/02/20 21:30 87 24 117/45 (69) 98 04/02/20 21:00 112/51 04/02/20 21:00 112/51 04/02/20 21:00 87 30 112/51 (71) 97 04/02/20 20:00 Mechanical Ventilator Mechanical Ventilator 04/02/20 20:00 80 04/02/20 20:00 85 04/02/20 20:00 99.0 86 24 110/46 (67) 98 04/02/20 19:30 87 24 80 04/02/20 19:30 118/51 04/02/20 19:00 85 24 99/47 (64) 97 04/02/20 19:00 99/47 04/02/20 19:00 99/47 04/02/20 18:12 68/22 04/02/20 18:00 85 24 102/41 (61) 95 04/02/20 18:00 102/41 04/02/20 18:00 102/41 04/02/20 17:30 85 28 96/44 (61) 97 04/02/20 17:00 96/44 04/02/20 17:00 96/44 04/02/20 17:00 86 24 100/42 (61) 97 04/02/20 16:30 87 24 100/38 (58) 97 04/02/20 16:00 99.1 86 26 97/39 (58) 97 04/02/20 16:00 80 04/02/20 16:00 100/38 04/02/20 16:00 100/38 04/02/20 16:00 86 04/02/20 16:00 Mechanical Ventilator Mechanical Ventilator 04/02/20 15:30 87 24 107/50 (69) 96 04/02/20 15:04 88 24 80 04/02/20 15:00 88 25 108/48 (68) 97 04/02/20 15:00 108/48 04/02/20 15:00 108/48 04/02/20 14:30 87 24 107/48 (67) 95 04/02/20 14:00 88 25 111/53 (72) 95 04/02/20 14:00 88 24 111/53 (72) 95 04/02/20 14:00 109/50 04/02/20 14:00 109/50 04/02/20 13:30 88 24 111/52 (71) 95 04/02/20 13:30 88 25 112/53 (72) 95 04/02/20 13:00 88 25 109/50 (69) 95 04/02/20 13:00 88 26 109/51 (70) 95 04/02/20 13:00 109/50 04/02/20 13:00 109/50 04/02/20 12:30 88 25 112/51 (71) 95 04/02/20 12:30 89 26 108/50 (69) 95 04/02/20 12:00 89 25 106/50 (68) 95 04/02/20 12:00 80 04/02/20 12:00 99.1 89 26 107/52 (70) 96 04/02/20 12:00 106/50 04/02/20 12:00 106/50 04/02/20 12:00 88 04/02/20 12:00 80 04/02/20 12:00 Mechanical Ventilator Mechanical Ventilator 04/02/20 11:30 89 25 108/51 (70) 96 04/02/20 11:30 89 26 110/51 (70) 95 04/02/20 11:11 89 24 80 04/02/20 11:00 90 25 112/54 (73) 96 04/02/20 11:00 114/50 04/02/20 11:00 114/50 04/02/20 10:50 112/56 04/02/20 10:49 112/56 04/02/20 10:30 90 27 111/51 (71) 96 04/02/20 10:00 110/52 04/02/20 10:00 110/52 04/02/20 10:00 90 24 110/52 (71) 95 04/02/20 09:30 90 25 112/51 (71) 96 04/02/20 09:09 90 24 80 5/17/20 09:00 116/50 04/02/20 09:00 116/50 04/02/20 09:00 99.3 90 25 116/50 (72) 96 04/02/20 08:30 90 26 113/51 (71) 95 04/02/20 08:00 Mechanical Ventilator Mechanical Ventilator 04/02/20 08:00 80 04/02/20 08:00 90 24 114/53 (73) 95 04/02/20 08:00 114/53 04/02/20 08:00 114/53 04/02/20 08:00 82 04/02/20 07:30 91 27 117/55 (75) 95 04/02/20 07:00 91 24 118/56 (76) 96 04/02/20 07:00 118/56 04/02/20 07:00 118/56 04/02/20 06:56 92 24 80 04/02/20 06:00 125/56 04/02/20 06:00 125/56 04/02/20 06:00 93 25 125/56 (79) 97 04/02/20 05:45 125/56 04/02/20 05:45 125/56 04/02/20 05:30 83/35 04/02/20 05:30 83/35 04/02/20 05:00 86 26 114/50 (71) 96 04/02/20 05:00 114/50 04/02/20 05:00 114/50 04/02/20 04:00 Mechanical Ventilator Mechanical Ventilator 04/02/20 04:00 116/48 04/02/20 04:00 116/48 04/02/20 04:00 80 04/02/20 04:00 87 04/02/20 04:00 99.4 87 24 116/48 (70) 96 04/02/20 03:55 125/52 04/02/20 03:00 88 33 120/55 (76) 97 04/02/20 03:00 120/55 04/02/20 03:00 120/55 04/02/20 02:59 89 24 80 04/02/20 02:30 90 31 127/58 (81) 96 04/02/20 02:30 121/60 04/02/20 02:00 121/60 04/02/20 02:00 121/60 5/17/20 02:00 90 32 121/60 (80) 96 04/02/20 01:00 90 26 126/58 (80) 95 04/02/20 01:00 126/58 04/02/20 01:00 126/58 04/02/20 00:00 Mechanical Ventilator Mechanical Ventilator 04/02/20 00:00 100.5 91 25 124/60 (81) 96 04/02/20 00:00 91 04/02/20 00:00 124/60 04/02/20 00:00 124/60 04/02/20 00:00 80 04/01/20 23:00 89 33 123/50 (74) 97 04/01/20 23:00 123/50 04/01/20 23:00 123/50 04/01/20 22:59 89 24 80 04/01/20 22:00 89 31 114/50 (71) 96 04/01/20 22:00 114/50 04/01/20 22:00 114/50 04/01/20 21:56 100.7 04/01/20 21:00 89 29 119/53 (75) 96 04/01/20 21:00 119/53 04/01/20 21:00 119/53 04/01/20 20:30 88 30 119/48 (71) 95 04/01/20 20:04 88 24 100 04/01/20 20:00 100 04/01/20 20:00 Mechanical Ventilator Mechanical Ventilator 04/01/20 20:00 112/46 04/01/20 20:00 112/46 04/01/20 20:00 100.0 88 28 112/46 (68) 96 04/01/20 20:00 88 04/01/20 19:00 86 27 98/41 (60) 92 04/01/20 19:00 101/40 04/01/20 19:00 101/40 04/01/20 18:56 86 33 93/38 (56) 92 04/01/20 18:45 83 29 89/36 (53) 90 04/01/20 18:43 122/56 04/01/20 18:40 93/38 04/01/20 18:30 87 30 122/56 (78) 93 04/01/20 18:15 86 27 111/51 (71) 94 04/01/20 18:00 86 31 105/47 (66) 93 04/01/20 18:00 111/51 04/01/20 18:00 111/51 04/01/20 17:45 86 25 99/48 (65) 92 04/01/20 17:30 87 28 113/53 (73) 93 04/01/20 17:15 88 26 132/59 (83) 94 04/01/20 17:00 132/59 04/01/20 17:00 132/59 04/01/20 17:00 88 26 132/66 (88) 93 04/01/20 16:45 88 26 128/63 (84) 93 04/01/20 16:30 88 26 134/62 (86) 93 04/01/20 16:15 88 26 133/64 (87) 93 04/01/20 16:00 99.3 88 28 131/65 (87) 93 04/01/20 16:00 Mechanical Ventilator Mechanical Ventilator 04/01/20 16:00 85 04/01/20 16:00 133/64 04/01/20 16:00 133/64 04/01/20 16:00 100 04/01/20 15:45 88 27 129/68 (88) 93 04/01/20 15:30 88 26 127/58 (81) 94 04/01/20 15:15 88 26 134/64 (87) 95 04/01/20 15:02 86 24 100 04/01/20 15:00 86 26 131/68 (89) 94 04/01/20 15:00 134/64 04/01/20 15:00 134/64 04/01/20 14:45 88 26 129/64 (85) 93 04/01/20 14:30 87 27 129/66 (87) 92 04/01/20 14:15 87 27 125/66 (85) 91 04/01/20 14:06 117/60 04/01/20 14:00 99.3 87 26 117/60 (79) 90 04/01/20 14:00 125/66 04/01/20 14:00 125/66 04/01/20 13:45 87 29 117/60 (79) 93 04/01/20 13:30 88 26 116/57 (76) 93 5/16/20 13:00 87 44 127/60 (82) 92 04/01/20 13:00 129/52 04/01/20 13:00 129/52 04/01/20 12:30 86 44 120/58 (78) 91 04/01/20 12:15 87 48 128/63 (84) 93 04/01/20 12:00 98.6 87 48 128/63 (84) 93 04/01/20 12:00 86 04/01/20 12:00 100 04/01/20 12:00 128/63 04/01/20 12:00 128/63 04/01/20 12:00 Mechanical Ventilator Mechanical Ventilator 04/01/20 11:45 86 40 117/61 (79) 90 04/01/20 11:20 127/49 04/01/20 11:15 86 37 127/49 (75) 92 04/01/20 11:15 127/49 04/01/20 11:00 86 37 119/60 (79) 92 04/01/20 11:00 119/60 04/01/20 11:00 119/60 Intake and Output 04/02/20 04/03/20 19:00 07:00 Intake Total 1111.372 ml 1178.7081 ml Output Total 810 ml 630 ml Balance 301.372 ml 548.7081 ml IV Total 1056.372 ml 1173.7081 ml Tube Feeding 55 ml 5 ml Output Urine Total 810 ml 630 ml # Bowel Movements 2 4 Labs Test 03/31/20 18:30 04/01/20 07:00 04/01/20 15:35 04/02/20 06:30 Arterial Blood pH 7.496 (7.350-7.450) Arterial Blood Partial Pressure CO2 44.9 mmHg (35.0-45.0) Arterial Blood Partial Pressure O2 97.1 mmHg (75.0-100.0) Arterial Blood HCO3 33.9 mmol/L (22.0-26.0) Arterial Blood Oxygen Saturation 97.6 % (95-100) Arterial Blood Base Excess 9.7 (-2-2) Joaquin Test Positive White Blood Count 23.1 K/UL (4.8-10.8) 23.5 K/UL (4.8-10.8) Red Blood Count 2.58 M/UL (4.20-5.40) 2.18 M/UL (4.20-5.40) Hemoglobin 9.2 G/DL (12.0-16.0) 8.1 G/DL (12.0-16.0) Hematocrit 27.2 % (37.0-47.0) 23.3 % (37.0-47.0) Mean Corpuscular Volume 106 FL (80-99) 107 FL (80-99) Mean Corpuscular Hemoglobin 35.9 PG (27.0-31.0) 37.0 PG (27.0-31.0) Mean Corpuscular Hemoglobin Concent 34.0 G/DL (32.0-36.0) 34.6 G/DL (32.0-36.0) Red Cell Distribution Width 23.1 % (11.6-14.8) 23.8 % (11.6-14.8) Platelet Count 116 K/UL (150-450) 108 K/UL (150-450) Mean Platelet Volume 9.5 FL (6.5-10.1) 9.3 FL (6.5-10.1) Neutrophils (%) (Auto) % (45.0-75.0) % (45.0-75.0) Lymphocytes (%) (Auto) % (20.0-45.0) % (20.0-45.0) Monocytes (%) (Auto) % (1.0-10.0) % (1.0-10.0) Eosinophils (%) (Auto) % (0.0-3.0) % (0.0-3.0) Basophils (%) (Auto) % (0.0-2.0) % (0.0-2.0) Differential Total Cells Counted 100 100 Neutrophils % (Manual) 88 % (45-75) 75 % (45-75) Lymphocytes % (Manual) 6 % (20-45) 10 % (20-45) Monocytes % (Manual) 5 % (1-10) 10 % (1-10) Eosinophils % (Manual) 1 % (0-3) 3 % (0-3) Basophils % (Manual) 0 % (0-2) 0 % (0-2) Band Neutrophils 0 % (0-8) 2 % (0-8) Nucleated Red Blood Cells 2 /100 WBC 5 /100 WBC Platelet Estimate Decreased Decreased Platelet Morphology Normal Normal Polychromasia 1+ 1+ Hypochromasia 1+ 1+ Anisocytosis 2+ 3+ Macrocytosis 1+ 2+ Sodium Level 132 MMOL/L (136-145) 129 MMOL/L (136-145) Potassium Level 5.7 MMOL/L (3.5-5.1) 5.2 MMOL/L (3.5-5.1) Chloride Level 94 MMOL/L (98-107) 91 MMOL/L (98-107) Carbon Dioxide Level 39 MMOL/L (21-32) 35 MMOL/L (21-32) Anion Gap -1 mmol/L (5-15) 3 mmol/L (5-15) Blood Urea Nitrogen 65 mg/dL (7-18) 69 mg/dL (7-18) Creatinine 0.8 MG/DL (0.55-1.30) 0.8 MG/DL (0.55-1.30) Estimat Glomerular Filtration Rate > 60 mL/min (>60) > 60 mL/min (>60) Glucose Level 72 MG/DL (74-106) 123 MG/DL (74-106) Uric Acid 7.6 MG/DL (2.6-7.2) Calcium Level 9.0 MG/DL (8.5-10.1) 8.8 MG/DL (8.5-10.1) Phosphorus Level 5.2 MG/DL (2.5-4.9) 5.3 MG/DL (2.5-4.9) Magnesium Level 2.7 MG/DL (1.8-2.4) 2.7 MG/DL (1.8-2.4) Total Bilirubin 1.6 MG/DL (0.2-1.0) 2.0 MG/DL (0.2-1.0) Direct Bilirubin 0.8 MG/DL (0.0-0.3) 1.0 MG/DL (0.0-0.3) Gamma Glutamyl Transpeptidase 746 U/L (5-85) Aspartate Amino Transf (AST/SGOT) 744 U/L (15-37) 726 U/L (15-37) Alanine Aminotransferase (ALT/SGPT) 314 U/L (12-78) 275 U/L (12-78) Alkaline Phosphatase 408 U/L (46-116) 378 U/L (46-116) Ammonia 104 umol/L (11-32) 80 umol/L (11-32) Total Creatine Kinase 127 U/L (26-308) 126 U/L (26-308) Total Protein 6.1 G/DL (6.4-8.2) 6.0 G/DL (6.4-8.2) Albumin 2.1 G/DL (3.4-5.0) 2.4 G/DL (3.4-5.0) Globulin 4.0 g/dL 3.6 g/dL Albumin/Globulin Ratio 0.5 (1.0-2.7) 0.7 (1.0-2.7) Fibrinogen 195 mg/dL (200-400) D-Dimer 5.44 mg/L FEU (0.00-0.49) C-Reactive Protein, Quantitative 1.5 mg/dL (0.00-0.90) Pro-B-Type Natriuretic Peptide 2840 pg/mL (0-125) Test 04/03/20 03:30 White Blood Count 19.0 K/UL (4.8-10.8) Red Blood Count 2.35 M/UL (4.20-5.40) Hemoglobin 8.7 G/DL (12.0-16.0) Hematocrit 25.4 % (37.0-47.0) Mean Corpuscular Volume 108 FL (80-99) Mean Corpuscular Hemoglobin 36.9 PG (27.0-31.0) Mean Corpuscular Hemoglobin Concent 34.3 G/DL (32.0-36.0) Red Cell Distribution Width 24.6 % (11.6-14.8) Platelet Count 97 K/UL (150-450) Mean Platelet Volume 8.9 FL (6.5-10.1) Neutrophils (%) (Auto) % (45.0-75.0) Lymphocytes (%) (Auto) % (20.0-45.0) Monocytes (%) (Auto) % (1.0-10.0) Eosinophils (%) (Auto) % (0.0-3.0) Basophils (%) (Auto) % (0.0-2.0) Differential Total Cells Counted 100 Neutrophils % (Manual) 81 % (45-75) Lymphocytes % (Manual) 11 % (20-45) Monocytes % (Manual) 6 % (1-10) Eosinophils % (Manual) 2 % (0-3) Basophils % (Manual) 0 % (0-2) Band Neutrophils 0 % (0-8) Platelet Estimate Decreased Platelet Morphology Normal Polychromasia 1+ Hypochromasia 1+ Anisocytosis 2+ Macrocytosis 1+ Sodium Level 133 MMOL/L (136-145) Potassium Level 3.9 MMOL/L (3.5-5.1) Chloride Level 93 MMOL/L (98-107) Carbon Dioxide Level 36 MMOL/L (21-32) Anion Gap 4 mmol/L (5-15) Blood Urea Nitrogen 62 mg/dL (7-18) Creatinine 0.7 MG/DL (0.55-1.30) Estimat Glomerular Filtration Rate > 60 mL/min (>60) Glucose Level 90 MG/DL (74-106) Hemoglobin A1c 5.5 % (4.3-6.0) Uric Acid 8.9 MG/DL (2.6-7.2) Calcium Level 8.3 MG/DL (8.5-10.1) Phosphorus Level 4.6 MG/DL (2.5-4.9) Magnesium Level 2.7 MG/DL (1.8-2.4) Total Bilirubin 2.3 MG/DL (0.2-1.0) Direct Bilirubin 1.2 MG/DL (0.0-0.3) Aspartate Amino Transf (AST/SGOT) 750 U/L (15-37) Alanine Aminotransferase (ALT/SGPT) 267 U/L (12-78) Alkaline Phosphatase 411 U/L (46-116) C-Reactive Protein, Quantitative 1.8 mg/dL (0.00-0.90) Pro-B-Type Natriuretic Peptide 2229 pg/mL (0-125) Total Protein 6.2 G/DL (6.4-8.2) Albumin 2.4 G/DL (3.4-5.0) Globulin 3.8 g/dL Albumin/Globulin Ratio 0.6 (1.0-2.7) Thyroid Stimulating Hormone (TSH) 0.450 uiU/mL (0.358-3.740) Micro Microbiology Date/Time Source Procedure Growth Status 04/02/20 13:40 Indwelling Cath Urine Culture - Preliminary NO GROWTH Resulted Height (Feet): 5 Height (Inches): 1.00 Weight (Pounds): 222 Objective Physical Exam: Vitals: reviewed General: NAD HEENT: nc, at++ngt Neck: supple Chest: crackles b/l, mech breath sounds ++intubated Cardiovascular: RRR, no s3, s4 EXT ++ Significant edema and erythema bilateral lower extremity, patient also has blistering on both feet Neurologic: sedated Skin: other - As above Brett Mcclain MD April 03, 2020 10:54
[2020-04-03] MEDS: Metoclopramide 10mg/2ml Inj IVP SCH ×3 (13:19→23:15)
--- NOTE | 2020-04-03 13:35 | Cardiology Progress Note ---
Assessment/Plan Assessment/Plan 1. Acute hypoxic hypercapnic respiratory failure, due to bilateral PNA caused by COVID-19 infection, on steroids. 2. Septic shock with bradycardia, on dopamine and Raffi gtt and midodrine, keep MAP at 65 mmHg. Normal LV function with LVEF at 60%. 3. Hyponatremia, resolved. 4. Bilateral lower extremity cellulitis with Pseudomonas aeruginosa. 5. Hypernatremia, resolved. 6. HCV infection with liver cirrhosis. 7. Encephalopathy. Subjective Subjective Sinus rhythm at rate of 88. Objective Last 24 Hour Vital Signs Date Time Temp Pulse Resp B/P (MAP) Pulse Ox O2 Delivery O2 Flow Rate FiO2 04/03/20 13:17 108/54 04/03/20 11:31 88 24 50 04/03/20 11:30 88 24 116/56 (76) 98 04/03/20 11:00 89 25 111/56 (74) 98 04/03/20 10:30 89 24 107/55 (72) 99 04/03/20 10:00 89 24 129/70 (89) 98 04/03/20 09:30 81 24 97/47 (64) 98 04/03/20 09:21 67/28 04/03/20 09:00 76 25 66/28 (41) 98 04/03/20 08:30 87 24 121/61 (81) 98 04/03/20 08:00 98.8 87 24 127/49 (75) 98 04/03/20 08:00 80 04/03/20 08:00 Mechanical Ventilator Mechanical Ventilator 04/03/20 08:00 80 04/03/20 07:37 71/30 04/03/20 07:30 82 24 71/30 (44) 98 04/03/20 07:15 86 24 80 04/03/20 07:00 86 25 118/48 (71) 98 04/03/20 06:00 117/54 04/03/20 06:00 117/54 04/03/20 06:00 86 25 117/54 (75) 98 04/03/20 05:00 87 26 117/46 (69) 98 04/03/20 05:00 117/46 04/03/20 05:00 117/46 04/03/20 04:02 Mechanical Ventilator Mechanical Ventilator 04/03/20 04:00 99.0 87 25 119/50 (73) 98 04/03/20 04:00 87 04/03/20 04:00 119/50 04/03/20 04:00 119/50 04/03/20 04:00 80 04/03/20 03:30 87 24 80 04/03/20 03:01 121/44 04/03/20 03:00 86 25 128/52 (77) 98 04/03/20 03:00 128/52 04/03/20 03:00 128/52 04/03/20 02:00 86 25 122/46 (71) 99 04/03/20 02:00 122/46 04/03/20 02:00 122/46 04/03/20 01:51 97/47 04/03/20 01:30 89 26 98/31 (53) 93 04/03/20 01:00 114/37 04/03/20 01:00 114/37 04/03/20 01:00 86 25 114/37 (62) 98 04/03/20 00:00 80 04/03/20 00:00 Mechanical Ventilator Mechanical Ventilator 04/03/20 00:00 87 04/03/20 00:00 99.3 87 25 107/42 (63) 97 04/03/20 00:00 108/44 04/03/20 00:00 108/44 04/02/20 23:30 87 24 80 04/02/20 23:30 87 24 109/45 (66) 96 04/02/20 23:00 87 26 115/46 (69) 98 04/02/20 23:00 111/49 04/02/20 23:00 111/49 04/02/20 22:00 87 25 115/39 (64) 98 04/02/20 22:00 115/39 04/02/20 22:00 115/39 04/02/20 21:30 87 24 117/45 (69) 98 04/02/20 21:00 112/51 04/02/20 21:00 112/51 04/02/20 21:00 87 30 112/51 (71) 97 04/02/20 20:00 Mechanical Ventilator Mechanical Ventilator 04/02/20 20:00 80 04/02/20 20:00 85 04/02/20 20:00 99.0 86 24 110/46 (67) 98 04/02/20 19:30 87 24 80 04/02/20 19:30 118/51 04/02/20 19:00 85 24 99/47 (64) 97 04/02/20 19:00 99/47 04/02/20 19:00 99/47 04/02/20 18:12 68/22 04/02/20 18:00 85 24 102/41 (61) 95 04/02/20 18:00 102/41 04/02/20 18:00 102/41 04/02/20 17:30 85 28 96/44 (61) 97 04/02/20 17:00 96/44 04/02/20 17:00 96/44 04/02/20 17:00 86 24 100/42 (61) 97 04/02/20 16:30 87 24 100/38 (58) 97 04/02/20 16:00 99.1 86 26 97/39 (58) 97 04/02/20 16:00 80 04/02/20 16:00 100/38 04/02/20 16:00 100/38 04/02/20 16:00 86 04/02/20 16:00 Mechanical Ventilator Mechanical Ventilator 04/02/20 15:30 87 24 107/50 (69) 96 04/02/20 15:04 88 24 80 04/02/20 15:00 88 25 108/48 (68) 97 04/02/20 15:00 108/48 04/02/20 15:00 108/48 04/02/20 14:30 87 24 107/48 (67) 95 04/02/20 14:00 88 25 111/53 (72) 95 04/02/20 14:00 88 24 111/53 (72) 95 04/02/20 14:00 109/50 04/02/20 14:00 109/50 Intake and Output 04/02/20 04/03/20 19:00 07:00 Intake Total 1111.372 ml 1178.7081 ml Output Total 810 ml 630 ml Balance 301.372 ml 548.7081 ml IV Total 1056.372 ml 1173.7081 ml Tube Feeding 55 ml 5 ml Output Urine Total 810 ml 630 ml # Bowel Movements 2 4 2D Echo: EF 60%, Mild LVH, Mild MR. RVSP 44 mmHg, Normal LVD Fxn Laboratory Tests Test 04/03/20 03:30 White Blood Count 19.0 K/UL (4.8-10.8) H Red Blood Count 2.35 M/UL (4.20-5.40) L Hemoglobin 8.7 G/DL (12.0-16.0) L Hematocrit 25.4 % (37.0-47.0) L Mean Corpuscular Volume 108 FL (80-99) H Mean Corpuscular Hemoglobin 36.9 PG (27.0-31.0) H Mean Corpuscular Hemoglobin Concent 34.3 G/DL (32.0-36.0) Red Cell Distribution Width 24.6 % (11.6-14.8) H Platelet Count 97 K/UL (150-450) L Mean Platelet Volume 8.9 FL (6.5-10.1) Neutrophils (%) (Auto) % (45.0-75.0) Lymphocytes (%) (Auto) % (20.0-45.0) Monocytes (%) (Auto) % (1.0-10.0) Eosinophils (%) (Auto) % (0.0-3.0) Basophils (%) (Auto) % (0.0-2.0) Differential Total Cells Counted 100 Neutrophils % (Manual) 81 % (45-75) H Lymphocytes % (Manual) 11 % (20-45) L Monocytes % (Manual) 6 % (1-10) Eosinophils % (Manual) 2 % (0-3) Basophils % (Manual) 0 % (0-2) Band Neutrophils 0 % (0-8) Platelet Estimate Decreased L Platelet Morphology Normal Polychromasia 1+ Hypochromasia 1+ Anisocytosis 2+ Macrocytosis 1+ Sodium Level 133 MMOL/L (136-145) L Potassium Level 3.9 MMOL/L (3.5-5.1) Chloride Level 93 MMOL/L (98-107) L Carbon Dioxide Level 36 MMOL/L (21-32) H Anion Gap 4 mmol/L (5-15) L Blood Urea Nitrogen 62 mg/dL (7-18) H Creatinine 0.7 MG/DL (0.55-1.30) Estimat Glomerular Filtration Rate > 60 mL/min (>60) Glucose Level 90 MG/DL (74-106) Hemoglobin A1c 5.5 % (4.3-6.0) Uric Acid 8.9 MG/DL (2.6-7.2) H Calcium Level 8.3 MG/DL (8.5-10.1) L Phosphorus Level 4.6 MG/DL (2.5-4.9) Magnesium Level 2.7 MG/DL (1.8-2.4) H Total Bilirubin 2.3 MG/DL (0.2-1.0) H Direct Bilirubin 1.2 MG/DL (0.0-0.3) H Aspartate Amino Transf (AST/SGOT) 750 U/L (15-37) H Alanine Aminotransferase (ALT/SGPT) 267 U/L (12-78) H Alkaline Phosphatase 411 U/L (46-116) H C-Reactive Protein, Quantitative 1.8 mg/dL (0.00-0.90) H Pro-B-Type Natriuretic Peptide 2229 pg/mL (0-125) H Total Protein 6.2 G/DL (6.4-8.2) L Albumin 2.4 G/DL (3.4-5.0) L Globulin 3.8 g/dL Albumin/Globulin Ratio 0.6 (1.0-2.7) L Thyroid Stimulating Hormone (TSH) 0.450 uiU/mL (0.358-3.740) Microbiology Date/Time Source Procedure Growth Status 04/02/20 13:40 Indwelling Cath Urine Culture - Preliminary NO GROWTH Resulted Objective HEENT: Atraumatic and normocephalic. Anicteric. Intubated. NECK: JVP cannot be assessed. No carotid bruit. + ETT. CARDIOVASCULAR: Normal S1, S2. Regular rate and rhythm. No murmurs, gallops, or rubs. PMI is at fourth intercostal space at left midclavicular line. LUNGS: Bibasilar crackles. ABDOMEN: Soft, nontender, and nondistended. No hepatosplenomegaly. Positive bowel sounds. EXTREMITIES: A 2+ edema bilaterally associated with erythema with blistering and crust formation of both feet. Berto Gonzalez MD April 03, 2020 13:35
--- NOTE | 2020-04-03 18:52 | Surgery Progress Note ---
Surgery Progress Note Subjective Symptoms: worse Objective Last 24 Hour Vital Signs Date Time Temp Pulse Resp B/P (MAP) Pulse Ox O2 Delivery O2 Flow Rate FiO2 04/03/20 18:35 96/53 04/03/20 16:00 86 04/03/20 16:00 Mechanical Ventilator Mechanical Ventilator 04/03/20 16:00 50 04/03/20 15:30 86 24 97/53 (68) 92 04/03/20 15:03 88 24 50 04/03/20 15:00 86 24 95/53 (67) 93 04/03/20 14:30 87 24 94/49 (64) 94 04/03/20 14:08 100/54 04/03/20 14:00 89 25 100/51 (67) 90 04/03/20 13:30 88 24 168/73 (104) 94 04/03/20 13:17 108/54 04/03/20 13:00 88 24 108/54 (72) 93 04/03/20 12:30 88 24 111/56 (74) 93 04/03/20 12:00 50 04/03/20 12:00 98.8 88 24 108/49 (68) 92 04/03/20 12:00 88 04/03/20 12:00 Mechanical Ventilator Mechanical Ventilator 04/03/20 11:31 88 24 50 04/03/20 11:30 88 24 116/56 (76) 98 04/03/20 11:00 89 25 111/56 (74) 98 04/03/20 10:30 89 24 107/55 (72) 99 04/03/20 10:00 89 24 129/70 (89) 98 04/03/20 09:30 81 24 97/47 (64) 98 04/03/20 09:21 67/28 04/03/20 09:00 76 25 66/28 (41) 98 04/03/20 08:30 87 24 121/61 (81) 98 04/03/20 08:00 98.8 87 24 127/49 (75) 98 04/03/20 08:00 80 04/03/20 08:00 Mechanical Ventilator Mechanical Ventilator 04/03/20 08:00 80 04/03/20 07:37 71/30 04/03/20 07:30 82 24 71/30 (44) 98 04/03/20 07:15 86 24 80 04/03/20 07:00 86 25 118/48 (71) 98 04/03/20 06:00 117/54 04/03/20 06:00 117/54 04/03/20 06:00 86 25 117/54 (75) 98 04/03/20 05:00 87 26 117/46 (69) 98 04/03/20 05:00 117/46 04/03/20 05:00 117/46 04/03/20 04:02 Mechanical Ventilator Mechanical Ventilator 04/03/20 04:00 99.0 87 25 119/50 (73) 98 04/03/20 04:00 87 04/03/20 04:00 119/50 04/03/20 04:00 119/50 04/03/20 04:00 80 04/03/20 03:30 87 24 80 04/03/20 03:01 121/44 04/03/20 03:00 86 25 128/52 (77) 98 04/03/20 03:00 128/52 04/03/20 03:00 128/52 04/03/20 02:00 86 25 122/46 (71) 99 04/03/20 02:00 122/46 04/03/20 02:00 122/46 04/03/20 01:51 97/47 04/03/20 01:30 89 26 98/31 (53) 93 04/03/20 01:00 114/37 04/03/20 01:00 114/37 04/03/20 01:00 86 25 114/37 (62) 98 04/03/20 00:00 80 04/03/20 00:00 Mechanical Ventilator Mechanical Ventilator 04/03/20 00:00 87 04/03/20 00:00 99.3 87 25 107/42 (63) 97 04/03/20 00:00 108/44 04/03/20 00:00 108/44 04/02/20 23:30 87 24 80 04/02/20 23:30 87 24 109/45 (66) 96 04/02/20 23:00 87 26 115/46 (69) 98 04/02/20 23:00 111/49 04/02/20 23:00 111/49 04/02/20 22:00 87 25 115/39 (64) 98 5/17/20 22:00 115/39 04/02/20 22:00 115/39 04/02/20 21:30 87 24 117/45 (69) 98 04/02/20 21:00 112/51 04/02/20 21:00 112/51 04/02/20 21:00 87 30 112/51 (71) 97 04/02/20 20:00 Mechanical Ventilator Mechanical Ventilator 04/02/20 20:00 80 04/02/20 20:00 85 04/02/20 20:00 99.0 86 24 110/46 (67) 98 04/02/20 19:30 87 24 80 04/02/20 19:30 118/51 04/02/20 19:00 85 24 99/47 (64) 97 04/02/20 19:00 99/47 04/02/20 19:00 99/47 I&O Intake and Output 04/02/20 04/03/20 19:00 07:00 Intake Total 1111.372 ml 1178.7081 ml Output Total 810 ml 630 ml Balance 301.372 ml 548.7081 ml IV Total 1056.372 ml 1173.7081 ml Tube Feeding 55 ml 5 ml Output Urine Total 810 ml 630 ml # Bowel Movements 2 4 Dressing: other Wound: other Cardiovascular: RSR Respiratory: decreased breath sounds Abdomen: soft, non-distended, decreased bowel sounds Extremities: edema, no cyanosis Laboratory Tests Test 04/03/20 03:30 White Blood Count 19.0 K/UL (4.8-10.8) H Red Blood Count 2.35 M/UL (4.20-5.40) L Hemoglobin 8.7 G/DL (12.0-16.0) L Hematocrit 25.4 % (37.0-47.0) L Mean Corpuscular Volume 108 FL (80-99) H Mean Corpuscular Hemoglobin 36.9 PG (27.0-31.0) H Mean Corpuscular Hemoglobin Concent 34.3 G/DL (32.0-36.0) Red Cell Distribution Width 24.6 % (11.6-14.8) H Platelet Count 97 K/UL (150-450) L Mean Platelet Volume 8.9 FL (6.5-10.1) Neutrophils (%) (Auto) % (45.0-75.0) Lymphocytes (%) (Auto) % (20.0-45.0) Monocytes (%) (Auto) % (1.0-10.0) Eosinophils (%) (Auto) % (0.0-3.0) Basophils (%) (Auto) % (0.0-2.0) Differential Total Cells Counted 100 Neutrophils % (Manual) 81 % (45-75) H Lymphocytes % (Manual) 11 % (20-45) L Monocytes % (Manual) 6 % (1-10) Eosinophils % (Manual) 2 % (0-3) Basophils % (Manual) 0 % (0-2) Band Neutrophils 0 % (0-8) Platelet Estimate Decreased L Platelet Morphology Normal Polychromasia 1+ Hypochromasia 1+ Anisocytosis 2+ Macrocytosis 1+ Sodium Level 133 MMOL/L (136-145) L Potassium Level 3.9 MMOL/L (3.5-5.1) Chloride Level 93 MMOL/L (98-107) L Carbon Dioxide Level 36 MMOL/L (21-32) H Anion Gap 4 mmol/L (5-15) L Blood Urea Nitrogen 62 mg/dL (7-18) H Creatinine 0.7 MG/DL (0.55-1.30) Estimat Glomerular Filtration Rate > 60 mL/min (>60) Glucose Level 90 MG/DL (74-106) Hemoglobin A1c 5.5 % (4.3-6.0) Uric Acid 8.9 MG/DL (2.6-7.2) H Calcium Level 8.3 MG/DL (8.5-10.1) L Phosphorus Level 4.6 MG/DL (2.5-4.9) Magnesium Level 2.7 MG/DL (1.8-2.4) H Total Bilirubin 2.3 MG/DL (0.2-1.0) H Direct Bilirubin 1.2 MG/DL (0.0-0.3) H Aspartate Amino Transf (AST/SGOT) 750 U/L (15-37) H Alanine Aminotransferase (ALT/SGPT) 267 U/L (12-78) H Alkaline Phosphatase 411 U/L (46-116) H C-Reactive Protein, Quantitative 1.8 mg/dL (0.00-0.90) H Pro-B-Type Natriuretic Peptide 2229 pg/mL (0-125) H Total Protein 6.2 G/DL (6.4-8.2) L Albumin 2.4 G/DL (3.4-5.0) L Globulin 3.8 g/dL Albumin/Globulin Ratio 0.6 (1.0-2.7) L Thyroid Stimulating Hormone (TSH) 0.450 uiU/mL (0.358-3.740) Plan Problems: (1) Cellulitis Assessment & Plan: bilateral lower extremity cellulitis / edema chronic venous status changes dermatitis no abscess no purulent drainage ulcerations forming. keep lower extremity elevated while in bed apply skin protectant / moisturizing cream daily okay to shower okay to wrap soft after cream abx as per ID for cellulitis okay for diet duplex ordered trend labs will follow with recs thank you No evidence of deep venous thrombosis involving the visualized veins of the RIGHT lower extremity. refused eval of left COVID ++ cxr noted cont current supportive care improving labs stable improving slowly wean pressors as tolerated Patient is acutely worsened intubated on vent support 2 pressors now worsening labs worsening Prognosis is guarded we will continue with maximal support efforts weaning vent weaning pressors leukocytosis trend lft's Diffuse bilateral interstitial and airspace opacities worsening again vent settings high on pressors (2) COVID-19 Assessment & Plan: see above Theron Sotomayor April 03, 2020 18:52
[2020-04-03] MEDS: Dyna-Hex 2% Top Sol 2oz TOPIC SCH (20:26)
--- NOTE | 2020-04-03 21:24 | General Progress Note ---
Assessment/Plan Problem List: (1) Cellulitis ICD Codes: L03.90 - Cellulitis, unspecified SNOMED: [id number] Qualifiers: Qualified Codes: L03.119 - Cellulitis of unspecified part of limb Status: progressing, unchanged Assessment/Plan: respiratory failure eeg shows severe encephalopathy i spoke w satya at [facility] and said the best thing to do is dnr and comfort care due to futile care. hcv critical condition comatose brain encephalopathy sw consult ARF persistent leukocytosis sepsis anemia. h/h is stable cirrhosis poor prognosis Subjective ROS Limited/Unobtainable: Yes Allergies: Coded Allergies: No Known Allergies (Unverified , 02/29/20) Objective Last 24 Hour Vital Signs Date Time Temp Pulse Resp B/P (MAP) Pulse Ox O2 Delivery O2 Flow Rate FiO2 04/03/20 21:00 103/55 04/03/20 21:00 103/55 04/03/20 21:00 85 24 103/55 (71) 91 04/03/20 20:00 100 04/03/20 20:00 98.7 84 24 102/57 (72) 92 04/03/20 20:00 Mechanical Ventilator Mechanical Ventilator 04/03/20 20:00 102/57 04/03/20 20:00 102/57 04/03/20 20:00 84 04/03/20 19:30 85 24 101/55 (70) 92 04/03/20 19:00 86 24 104/62 (76) 92 04/03/20 18:45 96/53 04/03/20 18:35 96/53 04/03/20 18:30 85 24 101/52 (68) 91 04/03/20 18:00 85 24 99/51 (67) 92 04/03/20 17:30 85 24 95/52 (66) 91 04/03/20 17:00 85 24 98/48 (65) 91 04/03/20 16:30 85 24 100/53 (69) 91 04/03/20 16:00 86 04/03/20 16:00 Mechanical Ventilator Mechanical Ventilator 04/03/20 16:00 50 04/03/20 16:00 98.8 85 24 99/53 (68) 92 04/03/20 15:30 86 24 97/53 (68) 92 04/03/20 15:03 88 24 50 04/03/20 15:00 86 24 95/53 (67) 93 04/03/20 14:30 87 24 94/49 (64) 94 20 14:08 100/54 04/03/20 14:00 89 25 100/51 (67) 90 04/03/20 13:30 88 24 168/73 (104) 94 04/03/20 13:17 108/54 04/03/20 13:00 88 24 108/54 (72) 93 04/03/20 12:30 88 24 111/56 (74) 93 04/03/20 12:00 50 04/03/20 12:00 98.8 88 24 108/49 (68) 92 04/03/20 12:00 88 04/03/20 12:00 Mechanical Ventilator Mechanical Ventilator 04/03/20 11:31 88 24 50 04/03/20 11:30 88 24 116/56 (76) 98 04/03/20 11:00 89 25 111/56 (74) 98 04/03/20 10:30 89 24 107/55 (72) 99 04/03/20 10:00 89 24 129/70 (89) 98 04/03/20 09:30 81 24 97/47 (64) 98 04/03/20 09:21 67/28 04/03/20 09:00 76 25 66/28 (41) 98 04/03/20 08:30 87 24 121/61 (81) 98 04/03/20 08:00 98.8 87 24 127/49 (75) 98 04/03/20 08:00 80 04/03/20 08:00 Mechanical Ventilator Mechanical Ventilator 04/03/20 08:00 80 04/03/20 07:37 71/30 04/03/20 07:30 82 24 71/30 (44) 98 04/03/20 07:15 86 24 80 04/03/20 07:00 86 25 118/48 (71) 98 04/03/20 06:00 117/54 04/03/20 06:00 117/54 04/03/20 06:00 86 25 117/54 (75) 98 04/03/20 05:00 87 26 117/46 (69) 98 04/03/20 05:00 117/46 04/03/20 05:00 117/46 04/03/20 04:02 Mechanical Ventilator Mechanical Ventilator 04/03/20 04:00 99.0 87 25 119/50 (73) 98 04/03/20 04:00 87 04/03/20 04:00 119/50 04/03/20 04:00 119/50 04/03/20 04:00 80 04/03/20 03:30 87 24 80 04/03/20 03:01 121/44 04/03/20 03:00 86 25 128/52 (77) 98 04/03/20 03:00 128/52 04/03/20 03:00 128/52 04/03/20 02:00 86 25 122/46 (71) 99 04/03/20 02:00 122/46 04/03/20 02:00 122/46 04/03/20 01:51 97/47 04/03/20 01:30 89 26 98/31 (53) 93 04/03/20 01:00 114/37 04/03/20 01:00 114/37 04/03/20 01:00 86 25 114/37 (62) 98 04/03/20 00:00 80 04/03/20 00:00 Mechanical Ventilator Mechanical Ventilator 04/03/20 00:00 87 04/03/20 00:00 99.3 87 25 107/42 (63) 97 04/03/20 00:00 108/44 04/03/20 00:00 108/44 04/02/20 23:30 87 24 80 04/02/20 23:30 87 24 109/45 (66) 96 04/02/20 23:00 87 26 115/46 (69) 98 04/02/20 23:00 111/49 04/02/20 23:00 111/49 04/02/20 22:00 87 25 115/39 (64) 98 04/02/20 22:00 115/39 04/02/20 22:00 115/39 04/02/20 21:30 87 24 117/45 (69) 98 Intake and Output 04/02/20 04/03/20 19:00 07:00 Intake Total 1111.372 ml 1178.7081 ml Output Total 810 ml 630 ml Balance 301.372 ml 548.7081 ml IV Total 1056.372 ml 1173.7081 ml Tube Feeding 55 ml 5 ml Output Urine Total 810 ml 630 ml # Bowel Movements 2 4 Laboratory Tests 04/03/20 03:30: White Blood Count 19.0H, Red Blood Count 2.35L, Hemoglobin 8.7L, Hematocrit 25.4L, Mean Corpuscular Volume 108H, Mean Corpuscular Hemoglobin 36.9H, Mean Corpuscular Hemoglobin Concent 34.3, Red Cell Distribution Width 24.6H, Platelet Count 97L, Mean Platelet Volume 8.9, Neutrophils (%) (Auto) , Lymphocytes (%) (Auto) , Monocytes (%) (Auto) , Eosinophils (%) (Auto) , Basophils (%) (Auto) , Differential Total Cells Counted 100, Neutrophils % ( Manual) 81H, Lymphocytes % (Manual) 11L, Monocytes % (Manual) 6, Eosinophils % ( Manual) 2, Basophils % (Manual) 0, Band Neutrophils 0, Platelet Estimate DecreasedL, Platelet Morphology Normal, Polychromasia 1+, Hypochromasia 1+, Anisocytosis 2+, Macrocytosis 1+, Sodium Level 133L, Potassium Level 3.9, Chloride Level 93L, Carbon Dioxide Level 36H, Anion Gap 4L, Blood Urea Nitrogen 62H, Creatinine 0.7, Estimat Glomerular Filtration Rate > 60, Glucose Level 90, Hemoglobin A1c 5.5, Uric Acid 8.9H, Calcium Level 8.3L, Phosphorus Level 4.6, Magnesium Level 2.7H, Total Bilirubin 2.3H, Direct Bilirubin 1.2H, Aspartate Amino Transf (AST/SGOT) 750H, Alanine Aminotransferase (ALT/SGPT) 267H, Alkaline Phosphatase 411H, C-Reactive Protein, Quantitative 1.8H, Pro-B-Type Natriuretic Peptide 2229H, Total Protein 6.2L, Albumin 2.4L, Globulin 3.8, Albumin/Globulin Ratio 0.6L, Thyroid Stimulating Hormone (TSH) 0.450 Height (Feet): 5 Height (Inches): 1.00 Weight (Pounds): 222 Celso Moreno MD April 03, 2020 21:24
[2020-04-03 21:59] LABS: APPEARANCE,URINE CLEAR; BILIRUBIN, URINE NEGATIVE (NEGATIVE); GLUCOSE, URINE (UA) NEGATIVE (NEGATIVE); KETONES,URINE 1+ (NEGATIVE); LEUKOCYTE ESTERASE ,URINE 1+ (NEGATIVE); NITRITE,URINE NEGATIVE (NEGATIVE); PH,URINE 5 (4.5-8.0); PROTEIN,URINE NEGATIVE (NEGATIVE); UROBILINOGEN,URINE NORMAL MG/DL (0.0-1.0)
[2020-04-03 22:07] LABS: COLOR,URINE YELLOW
[2020-04-03] MEDS: Norepinephrine Bitartrate 8 MG in D5W 500ml 500 ML IV SCH (23:47)
[2020-04-04] VITALS (51 sets, daily range): BP systolic 55–132; BP diastolic 27–60
[2020-04-04] MEDS: NovoLOG Insulin Flexpen SUBQ SCH ×4 (00:29→17:30)
--- NOTE | 2020-04-04 00:36 | Pulmonolgy Critical Care Note ---
Critical Care - Asmt/Plan Assessment/Plan: Pulmonary CCM Progress Note HPI Patient is a 59 year old woman with severe COVID 19 Pneumonia, past history of significant obesity, cirrhosis, bilateral lower extremity swelling, cellulitis Persistent severe respiratory failure. Patient had previous hospitalizations for cellulitis. PMH Hypothyroidism, Obesity, Cirrhosis, Anemia, Anxiety, Cellulitis Remains unresponsive off sedation > 48 hours, pupils dilated, minimally reactive to pain, non purposeful, not triggering ventilator, CT Head pending, not performed as COVID-19 positive. Neurology consulted. EEG severe encephalopathy Previous VQ no significant perfusion abnormality, prev LE dupplex negative, has high DDimer Did not tolerating Proning Worsening PaO2/FIO2, P 16, FIO2 50%%, has elevated PaCO2 Renal following Hypothyroidism, elevated glucose, Endocrine following, low 9:00 AM Cortisol [facility] previously - Remdesavir requested for when available, [facility] - not available as yet Previously received IL6 inhibitor inititial dose (4mg/Kg - all that was available), subsequent dose pending, previously on steroids See earlier on 04/03/2020 Allergies: No Known Allergies Past Medical History: Obesity, Cirrhosis, Anemia, Anxiety, Cellulitis, Hypothyroidism All Other Systems: negative except mentioned in HPI Physical Exam Vital Signs Noted General Appearance: Obese, no reaction to pain despite no sedation, intubated Head: normocephalic, atraumatic Eyes: pupils dilated and non responsive to light bilaterally ENT: moist MM, no LN Respiratory: Bilateral crackles, bilateral rhonchi, not overbreathing the ventilator Cardiovascular: regular rate, rhythm, HS1, HS2 RRR Gastrointestinal: Obese, soft non tender, ND Musculoskeletal: Mild edema and erythema bilateral lower extremity, patient has crusting on both feet, Neurologic: non responsive, no focal signs noted, no seizures, no response to pain Impression: Covid Pneumonia, s/p IL6 inhibitor, sp Hydroxychloroquine, Ivermectin Severe Respiratory Failure, high PEEP Persistent hypoxia, worsening PCO2 Bilateral dilated non reactive pupils, patient minimally responsive despite no sedation Not triggering ventilator currently Minimal response to pain Increased WCC - ID following ID following Bilateral Lower Extremity Cellulitis on admission Elevated NPA, severe bilateral edema - improving Cirrhosis, elevated transaminases/ammonia Splenomegaly Anemia Hypothyroidism Extremely poor prognosis Plan Neurology Consultated/CT head pending IV Antibiotics per ID S/p trial of steroids - currently 10 mg daily, being weaned to off, s/p IL6 inhibitor previously Surgery following for wounds Hematology following for anemia, observing for Neutropenia/thrombocytopenia Renal following for hypernatremia/volume status Endocrine following for Hypothyroidism, on ISS Monitor labs Bronchodilators PPX - SCD AC VC Proning PRN Supplement electrolytes PRN Albuterol PRN 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 Previously d/w Patients daughter Tri - discussed grave prognosis, possibility of patient having had possible stroke/IC event, suggested DNAR - wants full code Case d/w RN Previously [facility] - Remdesavir ordered, awaiting supply Labs Noted Chest X-Ray: Cardiomegaly, left lower lobe atelectasis versus effusion, worsening infiltrates/congestion Subjective ROS Limited/Unobtainable: No Constitutional: Reports: no symptoms Gastrointestinal/Abdominal: Reports: no symptoms Musculoskeletal: Reports: other - SOB Allergies: Coded Allergies: No Known Allergies (Unverified , 02/29/20) ICU time 50 minutes Critical Care - Objective Last 24 Hour Vital Signs Date Time Temp Pulse Resp B/P (MAP) Pulse Ox O2 Delivery O2 Flow Rate FiO2 04/04/20 00:00 50 04/04/20 00:00 98.8 85 24 102/55 (71) 90 04/04/20 00:00 86 04/04/20 00:00 Mechanical Ventilator Mechanical Ventilator 04/03/20 23:47 109/56 04/03/20 23:46 109/56 04/03/20 23:15 86 24 105/57 (73) 91 04/03/20 23:00 86 24 107/60 (76) 92 04/03/20 22:30 86 24 106/57 (73) 92 04/03/20 22:15 86 24 114/56 (75) 92 04/03/20 22:00 85 24 88/48 (61) 91 04/03/20 21:00 103/55 04/03/20 21:00 103/55 04/03/20 21:00 85 24 103/55 (71) 91 04/03/20 20:00 100 04/03/20 20:00 98.7 84 24 102/57 (72) 92 04/03/20 20:00 Mechanical Ventilator Mechanical Ventilator 04/03/20 20:00 102/57 04/03/20 20:00 102/57 04/03/20 20:00 84 04/03/20 19:30 85 24 101/55 (70) 92 04/03/20 19:00 85 24 50 04/03/20 19:00 86 24 104/62 (76) 92 20 18:45 96/53 04/03/20 18:35 96/53 04/03/20 18:30 85 24 101/52 (68) 91 20 18:00 85 24 99/51 (67) 92 04/03/20 17:30 85 24 95/52 (66) 91 04/03/20 17:00 85 24 98/48 (65) 91 04/03/20 16:30 85 24 100/53 (69) 91 04/03/20 16:00 86 04/03/20 16:00 Mechanical Ventilator Mechanical Ventilator 04/03/20 16:00 50 04/03/20 16:00 98.8 85 24 99/53 (68) 92 04/03/20 15:30 86 24 97/53 (68) 92 04/03/20 15:03 88 24 50 04/03/20 15:00 86 24 95/53 (67) 93 04/03/20 14:30 87 24 94/49 (64) 94 04/03/20 14:08 100/54 04/03/20 14:00 89 25 100/51 (67) 90 04/03/20 13:30 88 24 168/73 (104) 94 04/03/20 13:17 108/54 04/03/20 13:00 88 24 108/54 (72) 93 04/03/20 12:30 88 24 111/56 (74) 93 04/03/20 12:00 50 04/03/20 12:00 98.8 88 24 108/49 (68) 92 04/03/20 12:00 88 04/03/20 12:00 Mechanical Ventilator Mechanical Ventilator 04/03/20 11:31 88 24 50 04/03/20 11:30 88 24 116/56 (76) 98 04/03/20 11:00 89 25 111/56 (74) 98 20 10:30 89 24 107/55 (72) 99 04/03/20 10:00 89 24 129/70 (89) 98 04/03/20 09:30 81 24 97/47 (64) 98 04/03/20 09:21 67/28 520 09:00 76 25 66/28 (41) 98 20 08:30 87 24 121/61 (81) 98 04/03/20 08:00 98.8 87 24 127/49 (75) 98 04/03/20 08:00 80 04/03/20 08:00 Mechanical Ventilator Mechanical Ventilator 04/03/20 08:00 80 04/03/20 07:37 71/30 04/03/20 07:30 82 24 71/30 (44) 98 04/03/20 07:15 86 24 80 04/03/20 07:00 86 25 118/48 (71) 98 04/03/20 06:00 117/54 04/03/20 06:00 117/54 04/03/20 06:00 86 25 117/54 (75) 98 04/03/20 05:00 87 26 117/46 (69) 98 04/03/20 05:00 117/46 04/03/20 05:00 117/46 04/03/20 04:02 Mechanical Ventilator Mechanical Ventilator 04/03/20 04:00 99.0 87 25 119/50 (73) 98 04/03/20 04:00 87 04/03/20 04:00 119/50 04/03/20 04:00 119/50 04/03/20 04:00 80 04/03/20 03:30 87 24 80 04/03/20 03:01 121/44 04/03/20 03:00 86 25 128/52 (77) 98 20 03:00 128/52 04/03/20 03:00 128/52 04/03/20 02:00 86 25 122/46 (71) 99 20 02:00 122/46 04/03/20 02:00 122/46 04/03/20 01:51 97/47 04/03/20 01:30 89 26 98/31 (53) 93 04/03/20 01:00 114/37 04/03/20 01:00 114/37 20 01:00 86 25 114/37 (62) 98 Micro: Microbiology Date/Time Source Procedure Growth Status 04/02/20 13:40 Indwelling Cath Urine Culture - Preliminary NO GROWTH Resulted Accucheck: 136 Critical Care - Subjective ROS Limited/Unobtainable: No Condition: critical IV Access: PICC FI02: 50 Vent Support Breath Rate: 24 Vent Support Mode: AC Vent Tidal Volume: 400 Sputum Amount: Moderate PEEP: 16.0 PIP: 34 Tube Feeding Amount: 0 I&O: Intake and Output 04/03/20 04/04/20 19:00 07:00 Intake Total 1569.12172 ml 187.568 ml Output Total 730 ml 240 ml Balance 839.44930 ml -52.432 ml Free Water 120 ml IV Total 1374.83942 ml 187.568 ml Tube Feeding 75 ml 0 ml Output Urine Total 730 ml 240 ml # Bowel Movements 2 ET-Tube: 7.5 ET Position: 21 Doron Carrillo MD April 04, 2020 00:36
[2020-04-04] MEDS: DOPamine 400mg/250ml 250 ML IV SCH ×5 (05:03→20:26)
[2020-04-04] MEDS: Meropenem 1 GM in NS 55 ML IVPB SCH ×3 (05:05→20:13)
[2020-04-04 05:24] LABS: BASOPHILS % (AUTO) 0.2 % (0.0-2.0); EOSINOPHILS % (AUTO) 4.5 % (0.0-3.0); HEMATOCRIT 25.8 % (37.0-47.0); HEMOGLOBIN 8.9 G/DL (12.0-16.0); MEAN CORPUSCULAR VOLUME 106 FL (80-99); MONOCYTES % (AUTO) 3.1 % (1.0-10.0); NEUTROPHILS % (AUTO) 84.2 % (45.0-75.0); PLATELET COUNT 100 K/UL (150-450); RED BLOOD COUNT 2.43 M/UL (4.20-5.40); RED CELL DISTRIBUTION WIDTH 22.9 % (11.6-14.8); WHITE BLOOD COUNT 14.3 K/UL (4.8-10.8)
[2020-04-04 05:34] LABS: AMMONIA 51 umol/L (11-32)
[2020-04-04 05:45] LABS: PHOSPHORUS 4.5 MG/DL (2.5-4.9)
[2020-04-04 05:48] LABS: GAMMA GLUTAMYL TRANSPEPTIDASE 702 U/L (5-85)
[2020-04-04 05:50] LABS: ALANINE AMINOTRANSFERASE 227 U/L (12-78); ALBUMIN 2.2 G/DL (3.4-5.0); ALBUMIN/GLOBULIN RATIO 0.6 (1.0-2.7); ALKALINE PHOSPHATASE 463 U/L (46-116); ANION GAP 2 mmol/L (5-15); ASPARTATE AMINO TRANSFERASE 662 U/L (15-37); BILIRUBIN,TOTAL 2.1 MG/DL (0.2-1.0); BLOOD UREA NITROGEN 56 mg/dL (7-18); CALCIUM 8.5 MG/DL (8.5-10.1); CARBON DIOXIDE 37 MMOL/L (21-32); CHLORIDE 94 MMOL/L (98-107); CREATININE 0.6 MG/DL (0.55-1.30); POTASSIUM 3.6 MMOL/L (3.5-5.1); SODIUM 132 MMOL/L (136-145)
[2020-04-04 06:04] LABS: BILIRUBIN,DIRECT 0.9 MG/DL (0.0-0.3)
[2020-04-04] MEDS: Metoclopramide 10mg/2ml Inj IVP SCH ×5 (06:15→23:59)
[2020-04-04] MEDS: Lactulose 20gm/30ml UDC ORAL SCH ×3 (06:15→20:13)
[2020-04-04] MEDS: Vancomycin 500 MG in NS 110 ML IVPB SCH ×2 (06:34→17:22)
--- NOTE | 2020-04-04 07:28 | General Progress Note ---
Assessment/Plan Problem List: (1) Hypothyroid ICD Codes: E03.9 - Hypothyroidism, unspecified SNOMED: 90694090 (2) COVID-19 ICD Codes: U07.1 - COVID-19 SNOMED: 110898051 (3) Respiratory failure with hypoxia ICD Codes: J96.91 - Respiratory failure, unspecified with hypoxia SNOMED: 55786165216603091 Qualifiers: Qualified Codes: J96.01 - Acute respiratory failure with hypoxia (4) Cellulitis ICD Codes: L03.90 - Cellulitis, unspecified SNOMED: 398700320 Qualifiers: Qualified Codes: L03.119 - Cellulitis of unspecified part of limb (5) Hyperglycemia ICD Codes: R73.9 - Hyperglycemia, unspecified SNOMED: 78771539 Status: progressing, unchanged Assessment/Plan: no need for basal insulin continue Novolog sliding scale every 6 hours TSH normalized continue Levothyroxine 50 mcg IV every other day Subjective ROS Limited/Unobtainable: Yes Allergies: Coded Allergies: No Known Allergies (Unverified , 02/29/20) Subjective events noted - interval notes reviewed intubated in ICU glucose values are stable Item Value Date Time Bedside Blood Glucose 158 mg/dl H 04/04/20 0504 Bedside Blood Glucose 141 mg/dl H 04/04/20 0029 Bedside Blood Glucose 136 mg/dl H 04/03/20 1859 Bedside Blood Glucose 136 mg/dl H 04/03/20 1800 Bedside Blood Glucose 141 mg/dl H 04/03/20 1344 Bedside Blood Glucose 122 mg/dl H 04/03/20 0600 Objective Last 24 Hour Vital Signs Date Time Temp Pulse Resp B/P (MAP) Pulse Ox O2 Delivery O2 Flow Rate FiO2 04/04/20 07:00 93 25 107/39 (61) 92 04/04/20 06:45 93 24 107/40 (62) 92 04/04/20 06:45 107/40 04/04/20 06:45 107/40 04/04/20 06:30 92 25 110/36 (60) 91 04/04/20 06:15 91 26 111/32 (58) 92 04/04/20 06:00 111/32 04/04/20 06:00 111/32 04/04/20 06:00 90 25 114/45 (68) 92 5/19/20 05:30 111/45 5/19/20 05:15 89 25 112/40 (64) 94 04/04/20 05:15 114/41 04/04/20 05:03 114/40 04/04/20 05:00 112/40 04/04/20 05:00 112/40 04/04/20 05:00 89 24 114/40 (64) 94 04/04/20 04:45 114/40 04/04/20 04:45 114/40 04/04/20 04:45 88 24 132/47 (75) 95 04/04/20 04:30 95/38 04/04/20 04:30 95/38 04/04/20 04:30 87 24 95/38 (57) 94 04/04/20 04:15 109/40 04/04/20 04:15 109/40 04/04/20 04:15 87 24 109/40 (63) 94 04/04/20 04:00 50 04/04/20 04:00 103/59 04/04/20 04:00 103/59 04/04/20 04:00 98.7 88 25 103/59 (74) 92 04/04/20 04:00 Mechanical Ventilator Mechanical Ventilator 04/04/20 04:00 87 04/04/20 03:45 81/62 04/04/20 03:45 81/62 04/04/20 03:30 88 24 50 04/04/20 03:00 106/56 04/04/20 03:00 106/56 04/04/20 03:00 86 24 106/56 (73) 92 04/04/20 02:00 105/59 04/04/20 02:00 105/59 04/04/20 02:00 86 24 105/59 (74) 91 04/04/20 01:00 86 24 108/58 (75) 91 04/04/20 01:00 107/58 04/04/20 01:00 107/58 04/04/20 00:00 117/68 04/04/20 00:00 117/68 04/04/20 00:00 50 04/04/20 00:00 98.8 85 24 102/55 (71) 90 04/04/20 00:00 86 04/04/20 00:00 Mechanical Ventilator Mechanical Ventilator 5/18/20 23:47 109/56 520 23:46 109/56 520 23:15 86 24 105/57 (73) 91 20 23:15 109/56 520 23:05 86 24 50 51820 23:00 86 24 107/60 (76) 92 20 23:00 105/57 51820 23:00 105/57 1820 22:45 102/55 1820 22:45 102/55 1820 22:30 86 24 106/57 (73) 92 20 22:30 108/58 520 22:30 108/58 520 22:15 86 24 114/56 (75) 92 20 22:15 106/57 20 22:15 106/57 04/03/20 22:00 124/59 20 22:00 124/59 20 22:00 85 24 88/48 (61) 91 20 21:45 88/48 20 21:45 88/48 20 21:00 103/55 20 21:00 103/55 20 21:00 85 24 103/55 (71) 91 20 20:00 100 20 20:00 98.7 84 24 102/57 (72) 92 20 20:00 Mechanical Ventilator Mechanical Ventilator 04/03/20 20:00 102/57 20 20:00 102/57 20 20:00 84 20 19:30 85 24 101/55 (70) 92 20 19:00 85 24 50 5/20 19:00 86 24 104/62 (76) 92 20 18:45 96/53 5/20 18:35 96/53 5/20 18:30 85 24 101/52 (68) 91 20 18:00 85 24 99/51 (67) 92 20 17:30 85 24 95/52 (66) 91 20 17:00 85 24 98/48 (65) 91 04/03/20 16:30 85 24 100/53 (69) 91 04/03/20 16:00 86 04/03/20 16:00 Mechanical Ventilator Mechanical Ventilator 04/03/20 16:00 50 04/03/20 16:00 98.8 85 24 99/53 (68) 92 04/03/20 15:30 86 24 97/53 (68) 92 04/03/20 15:03 88 24 50 04/03/20 15:00 86 24 95/53 (67) 93 04/03/20 14:30 87 24 94/49 (64) 94 04/03/20 14:08 100/54 04/03/20 14:00 89 25 100/51 (67) 90 04/03/20 13:30 88 24 168/73 (104) 94 04/03/20 13:17 108/54 04/03/20 13:00 88 24 108/54 (72) 93 04/03/20 12:30 88 24 111/56 (74) 93 04/03/20 12:00 50 04/03/20 12:00 98.8 88 24 108/49 (68) 92 04/03/20 12:00 88 04/03/20 12:00 Mechanical Ventilator Mechanical Ventilator 04/03/20 11:31 88 24 50 04/03/20 11:30 88 24 116/56 (76) 98 04/03/20 11:00 89 25 111/56 (74) 98 04/03/20 10:30 89 24 107/55 (72) 99 04/03/20 10:00 89 24 129/70 (89) 98 04/03/20 09:30 81 24 97/47 (64) 98 04/03/20 09:21 67/28 04/03/20 09:00 76 25 66/28 (41) 98 04/03/20 08:30 87 24 121/61 (81) 98 04/03/20 08:00 98.8 87 24 127/49 (75) 98 04/03/20 08:00 80 04/03/20 08:00 Mechanical Ventilator Mechanical Ventilator 04/03/20 08:00 80 04/03/20 07:37 71/30 04/03/20 07:30 82 24 71/30 (44) 98 Intake and Output 04/03/20 04/04/20 19:00 07:00 Intake Total 1569.03717 ml 1393.72602 ml Output Total 780 ml 850 ml Balance 789.35896 ml 543.94327 ml Free Water 120 ml IV Total 1374.76210 ml 1393.95970 ml Tube Feeding 75 ml 0 ml Output Urine Total 780 ml 850 ml # Bowel Movements 2 Laboratory Tests 04/03/20 21:00: Urine Color Yellow, Urine Appearance Clear, Urine pH 5, Urine Specific Benedict 1.015, Urine Protein Negative, Urine Glucose (UA) Negative, Urine Ketones 1+H, Urine Blood 1+H, Urine Nitrite Negative, Urine Bilirubin Negative, Urine Urobilinogen Normal, Urine Leukocyte Esterase 1+H, Urine RBC 0-2, Urine WBC 0-2 , Urine Squamous Epithelial Cells Occasional, Urine Bacteria Few, Urine Yeast ManyH 04/04/20 03:35: White Blood Count 14.3H, Red Blood Count 2.43L, Hemoglobin 8.9L, Hematocrit 25.8L, Mean Corpuscular Volume 106H, Mean Corpuscular Hemoglobin 36.5H, Mean Corpuscular Hemoglobin Concent 34.4, Red Cell Distribution Width 22.9H, Platelet Count 100L, Mean Platelet Volume 8.2, Neutrophils (%) (Auto) 84.2H, Lymphocytes (%) (Auto) 8.0L, Monocytes (%) (Auto) 3.1, Eosinophils (%) (Auto) 4.5H, Basophils (%) (Auto) 0.2, Sodium Level 132L, Potassium Level 3.6, Chloride Level 94L, Carbon Dioxide Level 37H, Anion Gap 2L, Blood Urea Nitrogen 56H, Creatinine 0.6, Estimat Glomerular Filtration Rate > 60, Glucose Level 140H , Uric Acid 10.3H, Calcium Level 8.5, Phosphorus Level 4.5, Magnesium Level 2.5H , Total Bilirubin 2.1H, Direct Bilirubin 0.9H, Gamma Glutamyl Transpeptidase 702H, Aspartate Amino Transf (AST/SGOT) 662H, Alanine Aminotransferase (ALT/SGPT ) 227H, Alkaline Phosphatase 463H, Ammonia 51H, C-Reactive Protein, Quantitative 2.9H, Pro-B-Type Natriuretic Peptide 1948H, Total Protein 5.9L, Albumin 2.2L, Globulin 3.7, Albumin/Globulin Ratio 0.6L, Cortisol AM Sample [ Pending], Vancomycin Level Trough 16.2H Height (Feet): 5 Height (Inches): 1.00 Weight (Pounds): 226 General Appearance: other - on ventilator EENT: other Neck: normal alignment Cardiovascular: tachycardia Respiratory/Chest: decreased breath sounds Abdomen: normal bowel sounds Objective Current Medications Medications (Trade) Dose Ordered Sig/Dolores Route PRN Reason Start Time Stop Time Status Last Admin Dose Admin Acetaminophen (Tylenol) 650 mg Q4H PRN NG Temp >100.5 04/01/20 22:00 05/01/20 21:59 Acetaminophen (Tylenol) 650 mg Q4H PRN ORAL Mild Pain (Pain Scale 1-3) 03/13/20 14:53 04/12/20 14:52 04/01/20 21:26 Chlorhexidine Gluconate (Lucretia-Hex 2%) 1 applic DAILY@2000 TOPIC 03/13/20 20:00 06/11/20 19:59 04/03/20 20:26 Dextrose (Dextrose 50%) 25 ml Q30M PRN IV Hypoglycemia 04/03/20 00:00 07/02/20 00:00 Dextrose (Dextrose 50%) 50 ml Q30M PRN IV Hypoglycemia 04/03/20 00:00 07/02/20 00:00 Dopamine HCl/ Dextrose 250 ml @ 0 mls/hr Q24H IV 03/16/20 19:30 06/14/20 19:29 04/04/20 05:03 Fluconazole (Diflucan) 200 mg DAILY NG 03/31/20 11:00 04/07/20 10:59 04/03/20 09:21 Hydralazine HCl (Apresoline) 10 mg Q6H PRN IV For High Blood Pressure 03/24/20 16:45 06/22/20 16:44 Insulin Aspart (NovoLOG) Q6HR SUBQ 04/03/20 00:00 07/02/20 00:00 04/04/20 05:04 Lactulose (Cephulac) 40 gm Q8HR ORAL 04/01/20 14:00 04/30/20 17:59 04/04/20 06:15 Levothyroxine Sodium (Synthroid) 50 mcg QOD IV 04/05/20 09:00 04/17/20 11:59 Meropenem 1 gm/ Sodium Chloride 55 ml @ 110 mls/hr Q8HR IVPB 03/29/20 14:00 04/07/20 13:59 04/04/20 05:05 Metoclopramide HCl (Reglan) 5 mg EVERY 6 HOURS IVP 04/03/20 12:00 05/03/20 11:59 04/04/20 06:15 Midodrine (Pro-Amatine) 10 mg THREE TIMES A DAY NG 03/27/20 09:00 06/20/20 12:29 04/03/20 18:35 Norepinephrine Bitartrate 8 mg/ Dextrose 508 ml @ 0 mls/hr Q24H IV 04/03/20 23:00 05/03/20 22:59 04/03/20 23:47 Vancomycin HCl (Vanco rx to dose) 1 ea DAILY PRN MISC Per rx protocol 04/02/20 11:00 05/02/20 10:59 Vancomycin HCl 500 mg/Sodium Chloride 110 ml @ 110 mls/hr Q12HR@0600,1800 IVPB 04/02/20 18:00 04/07/20 17:59 04/04/20 06:34 Vasopressin 100 units/Sodium Chloride 100 ml @ 0 mls/hr Q24H PRN IV For hypotension 03/16/20 11:00 04/15/20 10:59 03/19/20 18:03 Johan Christopher MD April 04, 2020 07:28
--- NOTE | 2020-04-04 08:25 | Hematology/Onc Progress Note ---
Assessment/Plan Assessment/Plan Assessment and Recs # Pancytopenia -- multiple etiologies could be related to underlying liver disease, medication-induced, infection versus viral syndrome versus underlying bone marrow cause, in this case, has severe liver disease and cirrhosis, HEP C++ , also cellulitis, COVID19++ --> peripheral smear has been ordered and does not show significant abnormalities and none noted --> Medications have been reviewed --> Continue to monitor for improvement, trend cbc --> Hep panel and HIV are both negative --> US abd ordered to r/o cirrhosis and hepatosplenomegaly ->CIRRHOSIS IS NOTED , LARGE SPLEEN --> reverse isolation if ANC is <2000 --> Give neupogen if ANC <1000 --> Transfuse if hgb <7, with 1 unit prbc --> anemia panel ordered as well-->CW acd --> hgb trend 7-->7.1-->8.4-->8.2 -->8.7-->9.9-->9.2-->9.5-->9.1-->10.1 -->9--> 8.9 --> plt 145k-->152-->162k-->149k-->121k-->171k-->149-->163-->135-->100 --> wbc 3.4-->3.5->3.9->4.4-->11-->10.8 -->15->23-->26-->27-->26.7 -->14.3 --> abx: sameer/rifaximin-->levaquin /vanc-->sameer/vanc # Leukocytosis with Cellulitis of the lower extremities --> continue abx as needed as per id --> Started on IV antibiotics-->azithro/cefepime-->levaquin-->sameer --> as per surg recs, wound care --> on steriods at this time, likely contributor # Ftt --> remains on mirtazapine --> daily weights # Elevated LFTS --> as per gi --> due to cirrhosis # Respiratory failure --> s/p intubation 03/16 --> prone positioning as needed by pulm # Dvt ppx lovenox sq # Prognosis is poor The timing of this note does not necessarily reflect the time of the patient was seen. Greatly appreciate consultation. Subjective Allergies: Coded Allergies: No Known Allergies (Unverified , 02/29/20) Subjective 03/02 no events, no bleeding, hgb 7.1, no hemolysis 03/03 s/p blood, hgb improved to 8.4, stool ob negtive, on abx 03/05 asleep, no acute distress, hgb 8.2 03/06 remains comfortable, on abx, plt remains low 03/07 is on nonrebreather, no night sweats, labs are noted 03/08 labs reviewed, being diuresed, seen by cards, psych, labs noted 03/09 lasix adjusted, wbc remains low at 3.9, reviewed meds, smear 03/10 no night sweats, no bleeding, labs noted, smear noted 03/12 labs noted, none completed, have reordered, cellulitis better 03/13 is continuing with chest pain, cards aware, no further studies until covid neg 03/14 labs noted, no bleeding, diuresis as needed, hgb stable 03/15 alseep is cooperative, no bleeding, meds noted 03/16 no bleeding or chills, hgb 10.8, no night sweats, no major events 03/17 now intubated, no bleeding, labs noted, dw rn 03/19 remains intubated, no bleeding, labs noted, on pressors 03/20 prone posiition, seen by gi and renal, nob leeding, hgb 10.1 03/21 sedated, remains agitated, pulling on 2p restraints, no bleeding 03/22 icu, h/h stable, finished plaq/zithro, no acute distress 03/23 in icu, remains restless no bleeding, labs noted, no bleeding 03/24 in icu, poor prognosis, no night sweats, no fc 03/26 on vent, unresponsive, no bleeding, wbc high is on abx and steriods 03/27 remains on vent, ngt, no bleeding, already on abx on steriods 03/28 labs noted, no bleeding, wbc 23k, hgb 9, still with ongoing leukocytosis, ngt feeds 03/29 icu, started on sameer, steroids being tapered, wbc 26.4, no sob 03/30 no major changes, in icu, resp distress, on vent, wbc remains elevated 03/31 picc intact, wbc 26, amonia 104, no sob, continues on steroids 04/02 icu, nonverbal, vent, no distress 04/03 remains comotose is on vent, and pressors, no bleeding, dw rn in icu 04/04 no new changes, no acute distress Objective Objective Current Medications Medications (Trade) Dose Ordered Sig/Dolores Route PRN Reason Start Time Stop Time Status Last Admin Dose Admin Acetaminophen (Tylenol) 650 mg Q4H PRN NG Temp >100.5 04/01/20 22:00 05/01/20 21:59 Acetaminophen (Tylenol) 650 mg Q4H PRN ORAL Mild Pain (Pain Scale 1-3) 03/13/20 14:53 04/12/20 14:52 04/01/20 21:26 Chlorhexidine Gluconate (Lucretia-Hex 2%) 1 applic DAILY@2000 TOPIC 03/13/20 20:00 06/11/20 19:59 04/03/20 20:26 Dextrose (Dextrose 50%) 25 ml Q30M PRN IV Hypoglycemia 04/03/20 00:00 07/02/20 00:00 Dextrose (Dextrose 50%) 50 ml Q30M PRN IV Hypoglycemia 04/03/20 00:00 07/02/20 00:00 Dopamine HCl/ Dextrose 250 ml @ 0 mls/hr Q24H IV 03/16/20 19:30 06/14/20 19:29 04/04/20 05:03 Fluconazole (Diflucan) 200 mg DAILY NG 03/31/20 11:00 04/07/20 10:59 04/03/20 09:21 Hydralazine HCl (Apresoline) 10 mg Q6H PRN IV For High Blood Pressure 03/24/20 16:45 06/22/20 16:44 Insulin Aspart (NovoLOG) Q6HR SUBQ 04/03/20 00:00 07/02/20 00:00 04/04/20 05:04 Lactulose (Cephulac) 40 gm Q8HR ORAL 04/01/20 14:00 04/30/20 17:59 04/04/20 06:15 Levothyroxine Sodium (Synthroid) 50 mcg QOD IV 04/05/20 09:00 04/17/20 11:59 Meropenem 1 gm/ Sodium Chloride 55 ml @ 110 mls/hr Q8HR IVPB 03/29/20 14:00 04/07/20 13:59 04/04/20 05:05 Metoclopramide HCl (Reglan) 5 mg EVERY 6 HOURS IVP 04/03/20 12:00 05/03/20 11:59 04/04/20 06:15 Midodrine (Pro-Amatine) 10 mg THREE TIMES A DAY NG 03/27/20 09:00 06/20/20 12:29 04/03/20 18:35 Norepinephrine Bitartrate 8 mg/ Dextrose 508 ml @ 0 mls/hr Q24H IV 04/03/20 23:00 05/03/20 22:59 04/03/20 23:47 Vancomycin HCl (Vanco rx to dose) 1 ea DAILY PRN MISC Per rx protocol 04/02/20 11:00 05/02/20 10:59 Vancomycin HCl 500 mg/Sodium Chloride 110 ml @ 110 mls/hr Q12HR@0600,1800 IVPB 04/02/20 18:00 04/07/20 17:59 04/04/20 06:34 Vasopressin 100 units/Sodium Chloride 100 ml @ 0 mls/hr Q24H PRN IV For hypotension 03/16/20 11:00 04/15/20 10:59 03/19/20 18:03 Last 24 Hour Vital Signs Date Time Temp Pulse Resp B/P (MAP) Pulse Ox O2 Delivery O2 Flow Rate FiO2 04/04/20 07:00 107/39 04/04/20 07:00 107/39 04/04/20 07:00 93 25 107/39 (61) 92 04/04/20 06:58 93 24 50 04/04/20 06:45 93 24 107/40 (62) 92 04/04/20 06:45 107/40 04/04/20 06:45 107/40 04/04/20 06:30 92 25 110/36 (60) 91 04/04/20 06:15 91 26 111/32 (58) 92 04/04/20 06:00 111/32 04/04/20 06:00 111/32 04/04/20 06:00 90 25 114/45 (68) 92 04/04/20 05:30 111/45 04/04/20 05:15 89 25 112/40 (64) 94 04/04/20 05:15 114/41 04/04/20 05:03 114/40 04/04/20 05:00 112/40 04/04/20 05:00 112/40 04/04/20 05:00 89 24 114/40 (64) 94 04/04/20 04:45 114/40 04/04/20 04:45 114/40 04/04/20 04:45 88 24 132/47 (75) 95 04/04/20 04:30 95/38 04/04/20 04:30 95/38 04/04/20 04:30 87 24 95/38 (57) 94 04/04/20 04:15 109/40 04/04/20 04:15 109/40 04/04/20 04:15 87 24 109/40 (63) 94 04/04/20 04:00 50 04/04/20 04:00 103/59 04/04/20 04:00 103/59 04/04/20 04:00 98.7 88 25 103/59 (74) 92 04/04/20 04:00 Mechanical Ventilator Mechanical Ventilator 04/04/20 04:00 87 04/04/20 03:45 81/62 04/04/20 03:45 81/62 04/04/20 03:30 88 24 50 04/04/20 03:00 106/56 04/04/20 03:00 106/56 04/04/20 03:00 86 24 106/56 (73) 92 04/04/20 02:00 105/59 04/04/20 02:00 105/59 04/04/20 02:00 86 24 105/59 (74) 91 04/04/20 01:00 86 24 108/58 (75) 91 04/04/20 01:00 107/58 04/04/20 01:00 107/58 04/04/20 00:00 117/68 04/04/20 00:00 117/68 04/04/20 00:00 50 04/04/20 00:00 98.8 85 24 102/55 (71) 90 5/19/20 00:00 86 520 00:00 Mechanical Ventilator Mechanical Ventilator 04/03/20 23:47 109/56 51820 23:46 109/56 20 23:15 86 24 105/57 (73) 91 518/20 23:15 109/56 520 23:05 86 24 50 518/20 23:00 86 24 107/60 (76) 92 20 23:00 105/57 51820 23:00 105/57 51820 22:45 102/55 51820 22:45 102/55 520 22:30 86 24 106/57 (73) 92 20 22:30 108/58 520 22:30 108/58 20 22:15 86 24 114/56 (75) 92 20 22:15 106/57 20 22:15 106/57 20 22:00 124/59 20 22:00 124/59 20 22:00 85 24 88/48 (61) 91 20 21:45 88/48 20 21:45 88/48 20 21:00 103/55 51820 21:00 103/55 20 21:00 85 24 103/55 (71) 91 20 20:00 100 520 20:00 98.7 84 24 102/57 (72) 92 20 20:00 Mechanical Ventilator Mechanical Ventilator 20 20:00 102/57 518/20 20:00 102/57 518/20 20:00 84 518/20 19:30 85 24 101/55 (70) 92 5/20 19:00 85 24 50 518/20 19:00 86 24 104/62 (76) 92 518/20 18:45 96/53 518/20 18:35 96/53 518/20 18:30 85 24 101/52 (68) 91 5/20 18:00 85 24 99/51 (67) 92 518/20 17:30 85 24 95/52 (66) 91 04/03/20 17:00 85 24 98/48 (65) 91 04/03/20 16:30 85 24 100/53 (69) 91 20 16:00 86 04/03/20 16:00 Mechanical Ventilator Mechanical Ventilator 04/03/20 16:00 50 04/03/20 16:00 98.8 85 24 99/53 (68) 92 04/03/20 15:30 86 24 97/53 (68) 92 04/03/20 15:03 88 24 50 20 15:00 86 24 95/53 (67) 93 04/03/20 14:30 87 24 94/49 (64) 94 04/03/20 14:08 100/54 04/03/20 14:00 89 25 100/51 (67) 90 04/03/20 13:30 88 24 168/73 (104) 94 04/03/20 13:17 108/54 04/03/20 13:00 88 24 108/54 (72) 93 04/03/20 12:30 88 24 111/56 (74) 93 04/03/20 12:00 50 04/03/20 12:00 98.8 88 24 108/49 (68) 92 04/03/20 12:00 88 04/03/20 12:00 Mechanical Ventilator Mechanical Ventilator 04/03/20 11:31 88 24 50 04/03/20 11:30 88 24 116/56 (76) 98 04/03/20 11:00 89 25 111/56 (74) 98 04/03/20 10:30 89 24 107/55 (72) 99 04/03/20 10:00 89 24 129/70 (89) 98 04/03/20 09:30 81 24 97/47 (64) 98 04/03/20 09:21 67/28 04/03/20 09:00 76 25 66/28 (41) 98 04/03/20 08:30 87 24 121/61 (81) 98 04/03/20 08:00 98.8 87 24 127/49 (75) 98 04/03/20 08:00 80 04/03/20 08:00 Mechanical Ventilator Mechanical Ventilator 04/03/20 08:00 80 04/03/20 07:37 71/30 04/03/20 07:30 82 24 71/30 (44) 98 04/03/20 07:15 86 24 80 04/03/20 07:00 86 25 118/48 (71) 98 04/03/20 06:00 117/54 04/03/20 06:00 117/54 04/03/20 06:00 86 25 117/54 (75) 98 04/03/20 05:00 87 26 117/46 (69) 98 04/03/20 05:00 117/46 04/03/20 05:00 117/46 04/03/20 04:02 Mechanical Ventilator Mechanical Ventilator 04/03/20 04:00 99.0 87 25 119/50 (73) 98 04/03/20 04:00 87 04/03/20 04:00 119/50 04/03/20 04:00 119/50 04/03/20 04:00 80 04/03/20 03:30 87 24 80 04/03/20 03:01 121/44 04/03/20 03:00 86 25 128/52 (77) 98 04/03/20 03:00 128/52 04/03/20 03:00 128/52 04/03/20 02:00 86 25 122/46 (71) 99 04/03/20 02:00 122/46 04/03/20 02:00 122/46 04/03/20 01:51 97/47 04/03/20 01:30 89 26 98/31 (53) 93 04/03/20 01:00 114/37 04/03/20 01:00 114/37 04/03/20 01:00 86 25 114/37 (62) 98 04/03/20 00:00 80 04/03/20 00:00 Mechanical Ventilator Mechanical Ventilator 04/03/20 00:00 87 04/03/20 00:00 99.3 87 25 107/42 (63) 97 04/03/20 00:00 108/44 04/03/20 00:00 108/44 04/02/20 23:30 87 24 80 04/02/20 23:30 87 24 109/45 (66) 96 04/02/20 23:00 87 26 115/46 (69) 98 04/02/20 23:00 111/49 04/02/20 23:00 111/49 04/02/20 22:00 87 25 115/39 (64) 98 04/02/20 22:00 115/39 04/02/20 22:00 115/39 04/02/20 21:30 87 24 117/45 (69) 98 04/02/20 21:00 112/51 04/02/20 21:00 112/51 04/02/20 21:00 87 30 112/51 (71) 97 04/02/20 20:00 Mechanical Ventilator Mechanical Ventilator 04/02/20 20:00 80 04/02/20 20:00 85 04/02/20 20:00 99.0 86 24 110/46 (67) 98 04/02/20 19:30 87 24 80 04/02/20 19:30 118/51 04/02/20 19:00 85 24 99/47 (64) 97 04/02/20 19:00 99/47 04/02/20 19:00 99/47 04/02/20 18:12 68/22 04/02/20 18:00 85 24 102/41 (61) 95 04/02/20 18:00 102/41 04/02/20 18:00 102/41 04/02/20 17:30 85 28 96/44 (61) 97 04/02/20 17:00 96/44 04/02/20 17:00 96/44 04/02/20 17:00 86 24 100/42 (61) 97 04/02/20 16:30 87 24 100/38 (58) 97 04/02/20 16:00 99.1 86 26 97/39 (58) 97 04/02/20 16:00 80 04/02/20 16:00 100/38 04/02/20 16:00 100/38 04/02/20 16:00 86 04/02/20 16:00 Mechanical Ventilator Mechanical Ventilator 04/02/20 15:30 87 24 107/50 (69) 96 04/02/20 15:04 88 24 80 04/02/20 15:00 88 25 108/48 (68) 97 04/02/20 15:00 108/48 04/02/20 15:00 108/48 04/02/20 14:30 87 24 107/48 (67) 95 04/02/20 14:00 88 25 111/53 (72) 95 04/02/20 14:00 88 24 111/53 (72) 95 04/02/20 14:00 109/50 04/02/20 14:00 109/50 04/02/20 13:30 88 24 111/52 (71) 95 04/02/20 13:30 88 25 112/53 (72) 95 04/02/20 13:00 88 25 109/50 (69) 95 04/02/20 13:00 88 26 109/51 (70) 95 04/02/20 13:00 109/50 04/02/20 13:00 109/50 04/02/20 12:30 88 25 112/51 (71) 95 04/02/20 12:30 89 26 108/50 (69) 95 04/02/20 12:00 89 25 106/50 (68) 95 04/02/20 12:00 80 04/02/20 12:00 99.1 89 26 107/52 (70) 96 04/02/20 12:00 106/50 04/02/20 12:00 106/50 04/02/20 12:00 88 04/02/20 12:00 80 04/02/20 12:00 Mechanical Ventilator Mechanical Ventilator 04/02/20 11:30 89 25 108/51 (70) 96 04/02/20 11:30 89 26 110/51 (70) 95 04/02/20 11:11 89 24 80 04/02/20 11:00 90 25 112/54 (73) 96 04/02/20 11:00 114/50 04/02/20 11:00 114/50 04/02/20 10:50 112/56 04/02/20 10:49 112/56 04/02/20 10:30 90 27 111/51 (71) 96 04/02/20 10:00 110/52 04/02/20 10:00 110/52 04/02/20 10:00 90 24 110/52 (71) 95 04/02/20 09:30 90 25 112/51 (71) 96 04/02/20 09:09 90 24 80 04/02/20 09:00 116/50 04/02/20 09:00 116/50 04/02/20 09:00 99.3 90 25 116/50 (72) 96 04/02/20 08:30 90 26 113/51 (71) 95 Intake and Output 04/03/20 04/04/20 19:00 07:00 Intake Total 1569.62069 ml 1520.15363 ml Output Total 780 ml 850 ml Balance 789.94814 ml 670.23182 ml Free Water 120 ml IV Total 1374.43494 ml 1520.41047 ml Tube Feeding 75 ml 0 ml Output Urine Total 780 ml 850 ml # Bowel Movements 2 Labs Test 04/01/20 15:35 04/02/20 06:30 04/03/20 03:30 04/03/20 21:00 Fibrinogen 195 mg/dL (200-400) D-Dimer 5.44 mg/L FEU (0.00-0.49) White Blood Count 23.5 K/UL (4.8-10.8) 19.0 K/UL (4.8-10.8) Red Blood Count 2.18 M/UL (4.20-5.40) 2.35 M/UL (4.20-5.40) Hemoglobin 8.1 G/DL (12.0-16.0) 8.7 G/DL (12.0-16.0) Hematocrit 23.3 % (37.0-47.0) 25.4 % (37.0-47.0) Mean Corpuscular Volume 107 FL (80-99) 108 FL (80-99) Mean Corpuscular Hemoglobin 37.0 PG (27.0-31.0) 36.9 PG (27.0-31.0) Mean Corpuscular Hemoglobin Concent 34.6 G/DL (32.0-36.0) 34.3 G/DL (32.0-36.0) Red Cell Distribution Width 23.8 % (11.6-14.8) 24.6 % (11.6-14.8) Platelet Count 108 K/UL (150-450) 97 K/UL (150-450) Mean Platelet Volume 9.3 FL (6.5-10.1) 8.9 FL (6.5-10.1) Neutrophils (%) (Auto) % (45.0-75.0) % (45.0-75.0) Lymphocytes (%) (Auto) % (20.0-45.0) % (20.0-45.0) Monocytes (%) (Auto) % (1.0-10.0) % (1.0-10.0) Eosinophils (%) (Auto) % (0.0-3.0) % (0.0-3.0) Basophils (%) (Auto) % (0.0-2.0) % (0.0-2.0) Differential Total Cells Counted 100 100 Neutrophils % (Manual) 75 % (45-75) 81 % (45-75) Lymphocytes % (Manual) 10 % (20-45) 11 % (20-45) Monocytes % (Manual) 10 % (1-10) 6 % (1-10) Eosinophils % (Manual) 3 % (0-3) 2 % (0-3) Basophils % (Manual) 0 % (0-2) 0 % (0-2) Band Neutrophils 2 % (0-8) 0 % (0-8) Nucleated Red Blood Cells 5 /100 WBC Platelet Estimate Decreased Decreased Platelet Morphology Normal Normal Polychromasia 1+ 1+ Hypochromasia 1+ 1+ Anisocytosis 3+ 2+ Macrocytosis 2+ 1+ Sodium Level 129 MMOL/L (136-145) 133 MMOL/L (136-145) Potassium Level 5.2 MMOL/L (3.5-5.1) 3.9 MMOL/L (3.5-5.1) Chloride Level 91 MMOL/L (98-107) 93 MMOL/L (98-107) Carbon Dioxide Level 35 MMOL/L (21-32) 36 MMOL/L (21-32) Anion Gap 3 mmol/L (5-15) 4 mmol/L (5-15) Blood Urea Nitrogen 69 mg/dL (7-18) 62 mg/dL (7-18) Creatinine 0.8 MG/DL (0.55-1.30) 0.7 MG/DL (0.55-1.30) Estimat Glomerular Filtration Rate > 60 mL/min (>60) > 60 mL/min (>60) Glucose Level 123 MG/DL (74-106) 90 MG/DL (74-106) Calcium Level 8.8 MG/DL (8.5-10.1) 8.3 MG/DL (8.5-10.1) Phosphorus Level 5.3 MG/DL (2.5-4.9) 4.6 MG/DL (2.5-4.9) Magnesium Level 2.7 MG/DL (1.8-2.4) 2.7 MG/DL (1.8-2.4) Total Bilirubin 2.0 MG/DL (0.2-1.0) 2.3 MG/DL (0.2-1.0) Direct Bilirubin 1.0 MG/DL (0.0-0.3) 1.2 MG/DL (0.0-0.3) Aspartate Amino Transf (AST/SGOT) 726 U/L (15-37) 750 U/L (15-37) Alanine Aminotransferase (ALT/SGPT) 275 U/L (12-78) 267 U/L (12-78) Alkaline Phosphatase 378 U/L (46-116) 411 U/L (46-116) Ammonia 80 umol/L (11-32) Total Creatine Kinase 126 U/L (26-308) C-Reactive Protein, Quantitative 1.5 mg/dL (0.00-0.90) 1.8 mg/dL (0.00-0.90) Pro-B-Type Natriuretic Peptide 2840 pg/mL (0-125) 2229 pg/mL (0-125) Total Protein 6.0 G/DL (6.4-8.2) 6.2 G/DL (6.4-8.2) Albumin 2.4 G/DL (3.4-5.0) 2.4 G/DL (3.4-5.0) Globulin 3.6 g/dL 3.8 g/dL Albumin/Globulin Ratio 0.7 (1.0-2.7) 0.6 (1.0-2.7) Hemoglobin A1c 5.5 % (4.3-6.0) Uric Acid 8.9 MG/DL (2.6-7.2) Thyroid Stimulating Hormone (TSH) 0.450 uiU/mL (0.358-3.740) Urine Color Yellow Urine Appearance Clear Urine pH 5 (4.5-8.0) Urine Specific [place] 1.015 (1.005-1.035) Urine Protein Negative (NEGATIVE) Urine Glucose (UA) Negative (NEGATIVE) Urine Ketones 1+ (NEGATIVE) Urine Blood 1+ (NEGATIVE) Urine Nitrite Negative (NEGATIVE) Urine Bilirubin Negative (NEGATIVE) Urine Urobilinogen Normal MG/DL (0.0-1.0) Urine Leukocyte Esterase 1+ (NEGATIVE) Urine RBC 0-2 /HPF (0 - 2) Urine WBC 0-2 /HPF (0 - 2) Urine Squamous Epithelial Cells Occasional /LPF Urine Bacteria Few /HPF (NONE) Urine Yeast Many /HPF (NONE) Test 04/04/20 03:35 White Blood Count 14.3 K/UL (4.8-10.8) Red Blood Count 2.43 M/UL (4.20-5.40) Hemoglobin 8.9 G/DL (12.0-16.0) Hematocrit 25.8 % (37.0-47.0) Mean Corpuscular Volume 106 FL (80-99) Mean Corpuscular Hemoglobin 36.5 PG (27.0-31.0) Mean Corpuscular Hemoglobin Concent 34.4 G/DL (32.0-36.0) Red Cell Distribution Width 22.9 % (11.6-14.8) Platelet Count 100 K/UL (150-450) Mean Platelet Volume 8.2 FL (6.5-10.1) Neutrophils (%) (Auto) 84.2 % (45.0-75.0) Lymphocytes (%) (Auto) 8.0 % (20.0-45.0) Monocytes (%) (Auto) 3.1 % (1.0-10.0) Eosinophils (%) (Auto) 4.5 % (0.0-3.0) Basophils (%) (Auto) 0.2 % (0.0-2.0) Sodium Level 132 MMOL/L (136-145) Potassium Level 3.6 MMOL/L (3.5-5.1) Chloride Level 94 MMOL/L (98-107) Carbon Dioxide Level 37 MMOL/L (21-32) Anion Gap 2 mmol/L (5-15) Blood Urea Nitrogen 56 mg/dL (7-18) Creatinine 0.6 MG/DL (0.55-1.30) Estimat Glomerular Filtration Rate > 60 mL/min (>60) Glucose Level 140 MG/DL (74-106) Uric Acid 10.3 MG/DL (2.6-7.2) Calcium Level 8.5 MG/DL (8.5-10.1) Phosphorus Level 4.5 MG/DL (2.5-4.9) Magnesium Level 2.5 MG/DL (1.8-2.4) Total Bilirubin 2.1 MG/DL (0.2-1.0) Direct Bilirubin 0.9 MG/DL (0.0-0.3) Gamma Glutamyl Transpeptidase 702 U/L (5-85) Aspartate Amino Transf (AST/SGOT) 662 U/L (15-37) Alanine Aminotransferase (ALT/SGPT) 227 U/L (12-78) Alkaline Phosphatase 463 U/L (46-116) Ammonia 51 umol/L (11-32) C-Reactive Protein, Quantitative 2.9 mg/dL (0.00-0.90) Pro-B-Type Natriuretic Peptide 1948 pg/mL (0-125) Total Protein 5.9 G/DL (6.4-8.2) Albumin 2.2 G/DL (3.4-5.0) Globulin 3.7 g/dL Albumin/Globulin Ratio 0.6 (1.0-2.7) Vancomycin Level Trough 16.2 ug/mL (5.0-12.0) Height (Feet): 5 Height (Inches): 1.00 Weight (Pounds): 226 Objective Physical Exam: Vitals: reviewed General: NAD HEENT: nc, at++ngt Neck: supple Chest: crackles b/l, mech breath sounds ++intubated Cardiovascular: RRR, no s3, s4 EXT ++ Significant edema and erythema bilateral lower extremity, patient also has blistering on both feet, picc+ Neurologic: sedated Skin: other - As above Brett Mcclain MD April 04, 2020 08:25
[2020-04-04] MEDS: Midodrine 10mg tab NG SCH ×3 (09:06→17:22)
[2020-04-04] MEDS: Fluconazole 100mg tab NG SCH (09:06)
[2020-04-04] MEDS: Norepinephrine Bitartrate 8 MG in D5W 500ml 500 ML IV SCH ×3 (09:08→20:26)
--- NOTE | 2020-04-04 09:39 | Infectious Diseases Prog Note ---
Assessment/Plan Assessment/Plan IMPRESSION: 1. Bilateral leg cellulitis,Pseudomonas in culture 2. Anemia. 3. Hypoxemic respiratory failure 4. Thrombocytopenia. 5. Homeless 6. Morbid obesity. 7. Cirrhosis 8. COVID19 pneumonia Positive03/07-03/12, 03/24, 03/27 9. Hepatitis C 10.septic shock 11. Pneumonia with Pseudomonas 12. DM & hyperglycemia 13. Diarrhea, C. difficile negative 14. Leukocytosis improving 15. Severe encephalopathy RECOMMENDATION: Will f/u COVID19 test Finished Plaquenil ,Actemra, steroids & Ivermectin continue Meropenem, Vancomycin & Fluconazole Poor prognosis Case was D/W RN Subjective ROS Limited/Unobtainable: Yes Constitutional: Denies: fever Cardiovascular: Reports: other - on pressor Gastrointestinal/Abdominal: Reports: other - high residual Allergies: Coded Allergies: No Known Allergies (Unverified , 02/29/20) Objective Vital Signs Last 24 Hour Vital Signs Date Time Temp Pulse Resp B/P (MAP) Pulse Ox O2 Delivery O2 Flow Rate FiO2 04/04/20 09:08 107/39 04/04/20 09:07 107/39 04/04/20 07:00 107/39 04/04/20 07:00 107/39 04/04/20 07:00 93 25 107/39 (61) 92 04/04/20 06:58 93 24 50 04/04/20 06:45 93 24 107/40 (62) 92 04/04/20 06:45 107/40 04/04/20 06:45 107/40 04/04/20 06:30 92 25 110/36 (60) 91 04/04/20 06:15 91 26 111/32 (58) 92 04/04/20 06:00 111/32 04/04/20 06:00 111/32 04/04/20 06:00 90 25 114/45 (68) 92 04/04/20 05:30 111/45 04/04/20 05:15 89 25 112/40 (64) 94 04/04/20 05:15 114/41 04/04/20 05:03 114/40 04/04/20 05:00 112/40 04/04/20 05:00 112/40 04/04/20 05:00 89 24 114/40 (64) 94 5/19/20 04:45 114/40 04/04/20 04:45 114/40 04/04/20 04:45 88 24 132/47 (75) 95 04/04/20 04:30 95/38 04/04/20 04:30 95/38 04/04/20 04:30 87 24 95/38 (57) 94 04/04/20 04:15 109/40 04/04/20 04:15 109/40 04/04/20 04:15 87 24 109/40 (63) 94 04/04/20 04:00 50 04/04/20 04:00 103/59 04/04/20 04:00 103/59 04/04/20 04:00 98.7 88 25 103/59 (74) 92 04/04/20 04:00 Mechanical Ventilator Mechanical Ventilator 04/04/20 04:00 87 04/04/20 03:45 81/62 04/04/20 03:45 81/62 04/04/20 03:30 88 24 50 04/04/20 03:00 106/56 04/04/20 03:00 106/56 04/04/20 03:00 86 24 106/56 (73) 92 04/04/20 02:00 105/59 04/04/20 02:00 105/59 04/04/20 02:00 86 24 105/59 (74) 91 04/04/20 01:00 86 24 108/58 (75) 91 04/04/20 01:00 107/58 04/04/20 01:00 107/58 04/04/20 00:00 117/68 04/04/20 00:00 117/68 04/04/20 00:00 50 04/04/20 00:00 98.8 85 24 102/55 (71) 90 04/04/20 00:00 86 04/04/20 00:00 Mechanical Ventilator Mechanical Ventilator 04/03/20 23:47 109/56 04/03/20 23:46 109/56 04/03/20 23:15 86 24 105/57 (73) 91 04/03/20 23:15 109/56 04/03/20 23:05 86 24 50 04/03/20 23:00 86 24 107/60 (76) 92 04/03/20 23:00 105/57 5/18/20 23:00 105/57 518/20 22:45 102/55 518/20 22:45 102/55 518/20 22:30 86 24 106/57 (73) 92 518/20 22:30 108/58 5/18/20 22:30 108/58 518/20 22:15 86 24 114/56 (75) 92 51820 22:15 106/57 520 22:15 106/57 51820 22:00 124/59 51820 22:00 124/59 51820 22:00 85 24 88/48 (61) 91 20 21:45 88/48 520 21:45 88/48 20 21:00 103/55 520 21:00 103/55 520 21:00 85 24 103/55 (71) 91 20 20:00 100 20 20:00 98.7 84 24 102/57 (72) 92 20 20:00 Mechanical Ventilator Mechanical Ventilator 20 20:00 102/57 520 20:00 102/57 20 20:00 84 1820 19:30 85 24 101/55 (70) 92 20 19:00 85 24 50 518/20 19:00 86 24 104/62 (76) 92 20 18:45 96/53 20 18:35 96/53 20 18:30 85 24 101/52 (68) 91 20 18:00 85 24 99/51 (67) 92 20 17:30 85 24 95/52 (66) 91 18/20 17:00 85 24 98/48 (65) 91 20 16:30 85 24 100/53 (69) 91 20 16:00 86 520 16:00 Mechanical Ventilator Mechanical Ventilator 04/03/20 16:00 50 20 16:00 98.8 85 24 99/53 (68) 92 20 15:30 86 24 97/53 (68) 92 5/18/20 15:03 88 24 50 5/18/20 15:00 86 24 95/53 (67) 93 04/03/20 14:30 87 24 94/49 (64) 94 04/03/20 14:08 100/54 04/03/20 14:00 89 25 100/51 (67) 90 04/03/20 13:30 88 24 168/73 (104) 94 04/03/20 13:17 108/54 04/03/20 13:00 88 24 108/54 (72) 93 04/03/20 12:30 88 24 111/56 (74) 93 04/03/20 12:00 50 04/03/20 12:00 98.8 88 24 108/49 (68) 92 04/03/20 12:00 88 04/03/20 12:00 Mechanical Ventilator Mechanical Ventilator 04/03/20 11:31 88 24 50 04/03/20 11:30 88 24 116/56 (76) 98 04/03/20 11:00 89 25 111/56 (74) 98 04/03/20 10:30 89 24 107/55 (72) 99 04/03/20 10:00 89 24 129/70 (89) 98 Height (Feet): 5 Height (Inches): 1.00 Weight (Pounds): 226 HEENT: mucous membranes moist, other - orally intubated Respiratory/Chest: other - on ventilator, FIo2=50% Cardiovascular: normal rate, other - PICC line Abdomen: soft, non tender, other - NG tube Extremities: other - edema Neurologic/Psychiatric: unresponsiveness Microbiology Date/Time Source Procedure Growth Status 04/02/20 13:40 Indwelling Cath Urine Culture - Preliminary NO GROWTH Resulted Laboratory Tests Test 04/03/20 21:00 04/04/20 03:35 Urine Color Yellow Urine Appearance Clear Urine pH 5 (4.5-8.0) Urine Specific [place] 1.015 (1.005-1.035) Urine Protein Negative (NEGATIVE) Urine Glucose (UA) Negative (NEGATIVE) Urine Ketones 1+ (NEGATIVE) H Urine Blood 1+ (NEGATIVE) H Urine Nitrite Negative (NEGATIVE) Urine Bilirubin Negative (NEGATIVE) Urine Urobilinogen Normal MG/DL (0.0-1.0) Urine Leukocyte Esterase 1+ (NEGATIVE) H Urine RBC 0-2 /HPF (0 - 2) Urine WBC 0-2 /HPF (0 - 2) Urine Squamous Epithelial Cells Occasional /LPF Urine Bacteria Few /HPF (NONE) Urine Yeast Many /HPF (NONE) H White Blood Count 14.3 K/UL (4.8-10.8) H Red Blood Count 2.43 M/UL (4.20-5.40) L Hemoglobin 8.9 G/DL (12.0-16.0) L Hematocrit 25.8 % (37.0-47.0) L Mean Corpuscular Volume 106 FL (80-99) H Mean Corpuscular Hemoglobin 36.5 PG (27.0-31.0) H Mean Corpuscular Hemoglobin Concent 34.4 G/DL (32.0-36.0) Red Cell Distribution Width 22.9 % (11.6-14.8) H Platelet Count 100 K/UL (150-450) L Mean Platelet Volume 8.2 FL (6.5-10.1) Neutrophils (%) (Auto) 84.2 % (45.0-75.0) H Lymphocytes (%) (Auto) 8.0 % (20.0-45.0) L Monocytes (%) (Auto) 3.1 % (1.0-10.0) Eosinophils (%) (Auto) 4.5 % (0.0-3.0) H Basophils (%) (Auto) 0.2 % (0.0-2.0) Sodium Level 132 MMOL/L (136-145) L Potassium Level 3.6 MMOL/L (3.5-5.1) Chloride Level 94 MMOL/L (98-107) L Carbon Dioxide Level 37 MMOL/L (21-32) H Anion Gap 2 mmol/L (5-15) L Blood Urea Nitrogen 56 mg/dL (7-18) H Creatinine 0.6 MG/DL (0.55-1.30) Estimat Glomerular Filtration Rate > 60 mL/min (>60) Glucose Level 140 MG/DL (74-106) H Uric Acid 10.3 MG/DL (2.6-7.2) H Calcium Level 8.5 MG/DL (8.5-10.1) Phosphorus Level 4.5 MG/DL (2.5-4.9) Magnesium Level 2.5 MG/DL (1.8-2.4) H Total Bilirubin 2.1 MG/DL (0.2-1.0) H Direct Bilirubin 0.9 MG/DL (0.0-0.3) H Gamma Glutamyl Transpeptidase 702 U/L (5-85) H Aspartate Amino Transf (AST/SGOT) 662 U/L (15-37) H Alanine Aminotransferase (ALT/SGPT) 227 U/L (12-78) H Alkaline Phosphatase 463 U/L (46-116) H Ammonia 51 umol/L (11-32) H C-Reactive Protein, Quantitative 2.9 mg/dL (0.00-0.90) H Pro-B-Type Natriuretic Peptide 1948 pg/mL (0-125) H Total Protein 5.9 G/DL (6.4-8.2) L Albumin 2.2 G/DL (3.4-5.0) L Globulin 3.7 g/dL Albumin/Globulin Ratio 0.6 (1.0-2.7) L Cortisol AM Sample Pending Vancomycin Level Trough 16.2 ug/mL (5.0-12.0) H Current Medications Medications (Trade) Dose Ordered Sig/Dolores Route PRN Reason Start Time Stop Time Status Last Admin Dose Admin Acetaminophen (Tylenol) 650 mg Q4H PRN NG Temp >100.5 04/01/20 22:00 05/01/20 21:59 Acetaminophen (Tylenol) 650 mg Q4H PRN ORAL Mild Pain (Pain Scale 1-3) 03/13/20 14:53 04/12/20 14:52 04/01/20 21:26 Chlorhexidine Gluconate (Lucretia-Hex 2%) 1 applic DAILY@2000 TOPIC 03/13/20 20:00 06/11/20 19:59 04/03/20 20:26 Dextrose (Dextrose 50%) 25 ml Q30M PRN IV Hypoglycemia 04/03/20 00:00 07/02/20 00:00 Dextrose (Dextrose 50%) 50 ml Q30M PRN IV Hypoglycemia 04/03/20 00:00 07/02/20 00:00 Dopamine HCl/ Dextrose 250 ml @ 0 mls/hr Q24H IV 03/16/20 19:30 06/14/20 19:29 04/04/20 09:07 Fluconazole (Diflucan) 200 mg DAILY NG 03/31/20 11:00 04/07/20 10:59 04/04/20 09:06 Hydralazine HCl (Apresoline) 10 mg Q6H PRN IV For High Blood Pressure 03/24/20 16:45 06/22/20 16:44 Insulin Aspart (NovoLOG) Q6HR SUBQ 04/03/20 00:00 07/02/20 00:00 04/04/20 05:04 Lactulose (Cephulac) 40 gm Q8HR ORAL 04/01/20 14:00 04/30/20 17:59 04/04/20 06:15 Levothyroxine Sodium (Synthroid) 50 mcg QOD IV 04/05/20 09:00 04/17/20 11:59 Meropenem 1 gm/ Sodium Chloride 55 ml @ 110 mls/hr Q8HR IVPB 03/29/20 14:00 04/07/20 13:59 04/04/20 05:05 Metoclopramide HCl (Reglan) 5 mg EVERY 6 HOURS IVP 04/03/20 12:00 05/03/20 11:59 04/04/20 06:15 Midodrine (Pro-Amatine) 10 mg THREE TIMES A DAY NG 03/27/20 09:00 06/20/20 12:29 04/04/20 09:06 Norepinephrine Bitartrate 8 mg/ Dextrose 508 ml @ 0 mls/hr Q24H IV 04/03/20 23:00 05/03/20 22:59 04/04/20 09:08 Vancomycin HCl (Vanco rx to dose) 1 ea DAILY PRN MISC Per rx protocol 04/02/20 11:00 05/02/20 10:59 Vancomycin HCl 500 mg/Sodium Chloride 110 ml @ 110 mls/hr Q12HR@0600,1800 IVPB 04/02/20 18:00 04/07/20 17:59 04/04/20 06:34 Vasopressin 100 units/Sodium Chloride 100 ml @ 0 mls/hr Q24H PRN IV For hypotension 03/16/20 11:00 04/15/20 10:59 03/19/20 18:03 Jonathon Shah MD April 04, 2020 09:39
--- NOTE | 2020-04-04 09:48 | General Progress Note ---
Assessment/Plan Status: progressing, unchanged Assessment/Plan: macrocytic anemia elevated LFTS cirrhosis cellulitis elevated Ammonia levels respiratory distress>>> now failure COVID positive pna NGTF on hold for elevated residuals reglan 5 mg iv Q6 for elevate residuals abd us>> reordered>>>>pending!!!! Xifaxan and lactulose monitor ammonia level fu stool ob>>>neg GI procedures if needed abx per id hepatitis panel>>>>>positive for hep C>>> needs out patient fu poor prognosis will fu Subjective ROS Limited/Unobtainable: No Allergies: Coded Allergies: No Known Allergies (Unverified , 02/29/20) Objective Last 24 Hour Vital Signs Date Time Temp Pulse Resp B/P (MAP) Pulse Ox O2 Delivery O2 Flow Rate FiO2 04/04/20 09:08 107/39 04/04/20 09:07 107/39 04/04/20 07:00 107/39 04/04/20 07:00 107/39 04/04/20 07:00 93 25 107/39 (61) 92 04/04/20 06:58 93 24 50 04/04/20 06:45 93 24 107/40 (62) 92 04/04/20 06:45 107/40 04/04/20 06:45 107/40 04/04/20 06:30 92 25 110/36 (60) 91 04/04/20 06:15 91 26 111/32 (58) 92 04/04/20 06:00 111/32 04/04/20 06:00 111/32 04/04/20 06:00 90 25 114/45 (68) 92 04/04/20 05:30 111/45 04/04/20 05:15 89 25 112/40 (64) 94 04/04/20 05:15 114/41 04/04/20 05:03 114/40 04/04/20 05:00 112/40 04/04/20 05:00 112/40 04/04/20 05:00 89 24 114/40 (64) 94 04/04/20 04:45 114/40 04/04/20 04:45 114/40 04/04/20 04:45 88 24 132/47 (75) 95 04/04/20 04:30 95/38 04/04/20 04:30 95/38 04/04/20 04:30 87 24 95/38 (57) 94 04/04/20 04:15 109/40 04/04/20 04:15 109/40 04/04/20 04:15 87 24 109/40 (63) 94 04/04/20 04:00 50 04/04/20 04:00 103/59 04/04/20 04:00 103/59 04/04/20 04:00 98.7 88 25 103/59 (74) 92 04/04/20 04:00 Mechanical Ventilator Mechanical Ventilator 04/04/20 04:00 87 04/04/20 03:45 81/62 04/04/20 03:45 81/62 04/04/20 03:30 88 24 50 04/04/20 03:00 106/56 04/04/20 03:00 106/56 04/04/20 03:00 86 24 106/56 (73) 92 04/04/20 02:00 105/59 04/04/20 02:00 105/59 04/04/20 02:00 86 24 105/59 (74) 91 04/04/20 01:00 86 24 108/58 (75) 91 04/04/20 01:00 107/58 04/04/20 01:00 107/58 04/04/20 00:00 117/68 04/04/20 00:00 117/68 04/04/20 00:00 50 04/04/20 00:00 98.8 85 24 102/55 (71) 90 04/04/20 00:00 86 04/04/20 00:00 Mechanical Ventilator Mechanical Ventilator 04/03/20 23:47 109/56 04/03/20 23:46 109/56 04/03/20 23:15 86 24 105/57 (73) 91 04/03/20 23:15 109/56 04/03/20 23:05 86 24 50 04/03/20 23:00 86 24 107/60 (76) 92 04/03/20 23:00 105/57 04/03/20 23:00 105/57 04/03/20 22:45 102/55 04/03/20 22:45 102/55 04/03/20 22:30 86 24 106/57 (73) 92 04/03/20 22:30 108/58 5/18/20 22:30 108/58 518/20 22:15 86 24 114/56 (75) 92 518/20 22:15 106/57 518/20 22:15 106/57 5/20 22:00 124/59 518/20 22:00 124/59 20 22:00 85 24 88/48 (61) 91 20 21:45 88/48 20 21:45 88/48 20 21:00 103/55 51820 21:00 103/55 520 21:00 85 24 103/55 (71) 91 20 20:00 100 04/03/20 20:00 98.7 84 24 102/57 (72) 92 20 20:00 Mechanical Ventilator Mechanical Ventilator 04/03/20 20:00 102/57 20 20:00 102/57 04/03/20 20:00 84 04/03/20 19:30 85 24 101/55 (70) 92 20 19:00 85 24 50 20 19:00 86 24 104/62 (76) 92 20 18:45 96/53 20 18:35 96/53 04/03/20 18:30 85 24 101/52 (68) 91 20 18:00 85 24 99/51 (67) 92 20 17:30 85 24 95/52 (66) 91 20 17:00 85 24 98/48 (65) 91 20 16:30 85 24 100/53 (69) 91 20 16:00 86 20 16:00 Mechanical Ventilator Mechanical Ventilator 04/03/20 16:00 50 04/03/20 16:00 98.8 85 24 99/53 (68) 92 20 15:30 86 24 97/53 (68) 92 20 15:03 88 24 50 20 15:00 86 24 95/53 (67) 93 04/03/20 14:30 87 24 94/49 (64) 94 04/03/20 14:08 100/54 04/03/20 14:00 89 25 100/51 (67) 90 04/03/20 13:30 88 24 168/73 (104) 94 04/03/20 13:17 108/54 04/03/20 13:00 88 24 108/54 (72) 93 04/03/20 12:30 88 24 111/56 (74) 93 04/03/20 12:00 50 04/03/20 12:00 98.8 88 24 108/49 (68) 92 04/03/20 12:00 88 04/03/20 12:00 Mechanical Ventilator Mechanical Ventilator 04/03/20 11:31 88 24 50 04/03/20 11:30 88 24 116/56 (76) 98 04/03/20 11:00 89 25 111/56 (74) 98 04/03/20 10:30 89 24 107/55 (72) 99 04/03/20 10:00 89 24 129/70 (89) 98 Intake and Output 04/03/20 04/04/20 19:00 07:00 Intake Total 1569.97867 ml 1520.53149 ml Output Total 780 ml 850 ml Balance 789.12680 ml 670.20357 ml Free Water 120 ml IV Total 1374.27877 ml 1520.30582 ml Tube Feeding 75 ml 0 ml Output Urine Total 780 ml 850 ml # Bowel Movements 2 Laboratory Tests 04/03/20 21:00: Urine Color Yellow, Urine Appearance Clear, Urine pH 5, Urine Specific [place] 1.015, Urine Protein Negative, Urine Glucose (UA) Negative, Urine Ketones 1+H, Urine Blood 1+H, Urine Nitrite Negative, Urine Bilirubin Negative, Urine Urobilinogen Normal, Urine Leukocyte Esterase 1+H, Urine RBC 0-2, Urine WBC 0-2 , Urine Squamous Epithelial Cells Occasional, Urine Bacteria Few, Urine Yeast ManyH 04/04/20 03:35: White Blood Count 14.3H, Red Blood Count 2.43L, Hemoglobin 8.9L, Hematocrit 25.8L, Mean Corpuscular Volume 106H, Mean Corpuscular Hemoglobin 36.5H, Mean Corpuscular Hemoglobin Concent 34.4, Red Cell Distribution Width 22.9H, Platelet Count 100L, Mean Platelet Volume 8.2, Neutrophils (%) (Auto) 84.2H, Lymphocytes (%) (Auto) 8.0L, Monocytes (%) (Auto) 3.1, Eosinophils (%) (Auto) 4.5H, Basophils (%) (Auto) 0.2, Sodium Level 132L, Potassium Level 3.6, Chloride Level 94L, Carbon Dioxide Level 37H, Anion Gap 2L, Blood Urea Nitrogen 56H, Creatinine 0.6, Estimat Glomerular Filtration Rate > 60, Glucose Level 140H , Uric Acid 10.3H, Calcium Level 8.5, Phosphorus Level 4.5, Magnesium Level 2.5H , Total Bilirubin 2.1H, Direct Bilirubin 0.9H, Gamma Glutamyl Transpeptidase 702H, Aspartate Amino Transf (AST/SGOT) 662H, Alanine Aminotransferase (ALT/SGPT ) 227H, Alkaline Phosphatase 463H, Ammonia 51H, C-Reactive Protein, Quantitative 2.9H, Pro-B-Type Natriuretic Peptide 1948H, Total Protein 5.9L, Albumin 2.2L, Globulin 3.7, Albumin/Globulin Ratio 0.6L, Cortisol AM Sample [ Pending], Vancomycin Level Trough 16.2H Height (Feet): 5 Height (Inches): 1.00 Weight (Pounds): 226 General Appearance: no apparent distress EENT: normal ENT inspection Neck: supple Cardiovascular: normal rate Respiratory/Chest: decreased breath sounds Abdomen: normal bowel sounds, non tender, soft Extremities: non-tender Tam Spicer MD April 04, 2020 09:48
--- NOTE | 2020-04-04 10:33 | Nephrology Progress Note ---
Assessment/Plan Problem List: (1) Respiratory failure with hypoxia (2) Electrolyte imbalance Assessment: Hyponatremia resolved -hyperkalemia resolved (3) COVID-19 (4) Cellulitis (5) Hypothyroid Assessment Hyponatremia. Serum sodium started drifting down from March 16. Hyperkalemia. Septic shock. Acute respiratory failure. Respiratory failure and COVID pneumonia. History of cirrhosis/splenomegaly Anemia Bilateral lower extremity cellulitis Plan EEG: This is a severely abnormal EEG characterized by very low amplitude, slow activity with no reactivity to external stimulation. COMMENT: The study is consistent with severe encephalopathy. Clinical correlation is recommended. April 04: Patient stable from renal standpoint to view We will continue to watch BUN/creatinine and electrolytes Will add allopurinol for high uric acid Continue per consultants Remains full code Per orders April 03: Hypotensive, on pressors as needed Unresponsive Serum sodium improved Will administer another bolus of 3% saline Continue per consultants Not much to add from renal standpoint to view Prognosis poor, remain full code April 02: Blood pressure is maintained on pressors Remains unresponsive Today's lab reviewed 3% saline ordered EEG is severely abnormal Remains full code however prognosis is poor Discussed with DAO Huber ED March 16: Patient became hypoglycemic so long-acting insulin is held Potassium is 5.7 so albumin and Lasix in addition to Kayexalate is ordered Increase D5W to 100 cc an hour Blood sugar management per Endo Discussed with DAO Gabriel EEG ordered results pending Overall prognosis poor March 15: Increase lactulose dose 1 dose of Kayexalate Continue to monitor liver enzymes Patient unresponsive despite discontinuation of all mind altering medications Neuro eval? March 30 Electrolytes and bicarb improved We will cut down D5W IV fluid Blood sugar better controlled Liver enzymes still remains elevated Discussed with DAO March 13: Worsening leukocytosis Serum sodium lowering Blood sugar still elevated need insulin adjustment Continue to monitor electrolytes and renal parameters Continue per pulmonary Discussed with DAO Sarkar March 28: Serum sodium down to 160 Continue with D5W Continue per pulmonary March 27: Serum sodium vahe Patient retaining CO2 Will start D5W IV fluid Hold Diamox for now until further comments from keno manager Continue to monitor electrolytes Midodrine dose increased March 26: Remains unstable. Lasix and potassium chloride discontinued. IV Diamox initiated. ABG noted. Midodrine initiated. Continue per pulmonary and ID. Statins discontinued due to elevated liver enzymes. Continue to monitor electrolytes and renal parameters and ABG. Patient remains full code. 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 per spinning frame cleaner Taper steroids's deferred to keno manager Urine sodium is below 20 Serum ammonia is elevated will start lactulose Patient on Solu-Medrol and Solu-Cortef will discontinue Solu-Cortef Will try to gently diurese for severe edema meanwhile administering albumin 25% as needed Monitor electrolytes and renal parameters We will add midodrine 10 mg 3 times a day via NG tube Decrease dosage of IV Synthroid Discussed with DAO Starr Subjective ROS Limited/Unobtainable: Yes Objective Objective Last 24 Hour Vital Signs Date Time Temp Pulse Resp B/P (MAP) Pulse Ox O2 Delivery O2 Flow Rate FiO2 04/04/20 09:08 107/39 04/04/20 09:07 107/39 04/04/20 08:00 50 04/04/20 07:00 107/39 04/04/20 07:00 107/39 04/04/20 07:00 93 25 107/39 (61) 92 04/04/20 06:58 93 24 50 04/04/20 06:45 93 24 107/40 (62) 92 04/04/20 06:45 107/40 04/04/20 06:45 107/40 04/04/20 06:30 92 25 110/36 (60) 91 04/04/20 06:15 91 26 111/32 (58) 92 04/04/20 06:00 111/32 04/04/20 06:00 111/32 04/04/20 06:00 90 25 114/45 (68) 92 04/04/20 05:30 111/45 04/04/20 05:15 89 25 112/40 (64) 94 04/04/20 05:15 114/41 04/04/20 05:03 114/40 04/04/20 05:00 112/40 04/04/20 05:00 112/40 04/04/20 05:00 89 24 114/40 (64) 94 04/04/20 04:45 114/40 04/04/20 04:45 114/40 04/04/20 04:45 88 24 132/47 (75) 95 04/04/20 04:30 95/38 04/04/20 04:30 95/38 04/04/20 04:30 87 24 95/38 (57) 94 04/04/20 04:15 109/40 04/04/20 04:15 109/40 04/04/20 04:15 87 24 109/40 (63) 94 04/04/20 04:00 50 04/04/20 04:00 103/59 04/04/20 04:00 103/59 04/04/20 04:00 98.7 88 25 103/59 (74) 92 04/04/20 04:00 Mechanical Ventilator Mechanical Ventilator 04/04/20 04:00 87 04/04/20 03:45 81/62 04/04/20 03:45 81/62 04/04/20 03:30 88 24 50 04/04/20 03:00 106/56 04/04/20 03:00 106/56 04/04/20 03:00 86 24 106/56 (73) 92 04/04/20 02:00 105/59 04/04/20 02:00 105/59 04/04/20 02:00 86 24 105/59 (74) 91 04/04/20 01:00 86 24 108/58 (75) 91 04/04/20 01:00 107/58 04/04/20 01:00 107/58 04/04/20 00:00 117/68 04/04/20 00:00 117/68 04/04/20 00:00 50 04/04/20 00:00 98.8 85 24 102/55 (71) 90 04/04/20 00:00 86 04/04/20 00:00 Mechanical Ventilator Mechanical Ventilator 04/03/20 23:47 109/56 04/03/20 23:46 109/56 04/03/20 23:15 86 24 105/57 (73) 91 04/03/20 23:15 109/56 04/03/20 23:05 86 24 50 04/03/20 23:00 86 24 107/60 (76) 92 04/03/20 23:00 105/57 04/03/20 23:00 105/57 04/03/20 22:45 102/55 5/18/20 22:45 102/55 518/20 22:30 86 24 106/57 (73) 92 51820 22:30 108/58 518/20 22:30 108/58 51820 22:15 86 24 114/56 (75) 92 20 22:15 106/57 51820 22:15 106/57 51820 22:00 124/59 51820 22:00 124/59 20 22:00 85 24 88/48 (61) 91 20 21:45 88/48 520 21:45 88/48 20 21:00 103/55 520 21:00 103/55 20 21:00 85 24 103/55 (71) 91 20 20:00 100 20 20:00 98.7 84 24 102/57 (72) 92 20 20:00 Mechanical Ventilator Mechanical Ventilator 04/03/20 20:00 102/57 520 20:00 102/57 20 20:00 84 51820 19:30 85 24 101/55 (70) 92 20 19:00 85 24 50 20 19:00 86 24 104/62 (76) 92 20 18:45 96/53 20 18:35 96/53 1820 18:30 85 24 101/52 (68) 91 20 18:00 85 24 99/51 (67) 92 20 17:30 85 24 95/52 (66) 91 20 17:00 85 24 98/48 (65) 91 20 16:30 85 24 100/53 (69) 91 20 16:00 86 20 16:00 Mechanical Ventilator Mechanical Ventilator 04/03/20 16:00 50 20 16:00 98.8 85 24 99/53 (68) 92 20 15:30 86 24 97/53 (68) 92 20 15:03 88 24 50 520 15:00 86 24 95/53 (67) 93 5/18/20 14:30 87 24 94/49 (64) 94 04/03/20 14:08 100/54 04/03/20 14:00 89 25 100/51 (67) 90 04/03/20 13:30 88 24 168/73 (104) 94 04/03/20 13:17 108/54 04/03/20 13:00 88 24 108/54 (72) 93 04/03/20 12:30 88 24 111/56 (74) 93 04/03/20 12:00 50 04/03/20 12:00 98.8 88 24 108/49 (68) 92 04/03/20 12:00 88 04/03/20 12:00 Mechanical Ventilator Mechanical Ventilator 04/03/20 11:31 88 24 50 04/03/20 11:30 88 24 116/56 (76) 98 04/03/20 11:00 89 25 111/56 (74) 98 Intake and Output 04/03/20 04/04/20 19:00 07:00 Intake Total 1569.95171 ml 1520.04611 ml Output Total 780 ml 850 ml Balance 789.15473 ml 670.71330 ml Free Water 120 ml IV Total 1374.87429 ml 1520.79246 ml Tube Feeding 75 ml 0 ml Output Urine Total 780 ml 850 ml # Bowel Movements 2 Laboratory Tests 04/03/20 21:00: Urine Color Yellow, Urine Appearance Clear, Urine pH 5, Urine Specific [place] 1.015, Urine Protein Negative, Urine Glucose (UA) Negative, Urine Ketones 1+H, Urine Blood 1+H, Urine Nitrite Negative, Urine Bilirubin Negative, Urine Urobilinogen Normal, Urine Leukocyte Esterase 1+H, Urine RBC 0-2, Urine WBC 0-2 , Urine Squamous Epithelial Cells Occasional, Urine Bacteria Few, Urine Yeast ManyH 04/04/20 03:35: White Blood Count 14.3H, Red Blood Count 2.43L, Hemoglobin 8.9L, Hematocrit 25.8L, Mean Corpuscular Volume 106H, Mean Corpuscular Hemoglobin 36.5H, Mean Corpuscular Hemoglobin Concent 34.4, Red Cell Distribution Width 22.9H, Platelet Count 100L, Mean Platelet Volume 8.2, Neutrophils (%) (Auto) 84.2H, Lymphocytes (%) (Auto) 8.0L, Monocytes (%) (Auto) 3.1, Eosinophils (%) (Auto) 4.5H, Basophils (%) (Auto) 0.2, Sodium Level 132L, Potassium Level 3.6, Chloride Level 94L, Carbon Dioxide Level 37H, Anion Gap 2L, Blood Urea Nitrogen 56H, Creatinine 0.6, Estimat Glomerular Filtration Rate > 60, Glucose Level 140H , Uric Acid 10.3H, Calcium Level 8.5, Phosphorus Level 4.5, Magnesium Level 2.5H , Total Bilirubin 2.1H, Direct Bilirubin 0.9H, Gamma Glutamyl Transpeptidase 702H, Aspartate Amino Transf (AST/SGOT) 662H, Alanine Aminotransferase (ALT/SGPT ) 227H, Alkaline Phosphatase 463H, Ammonia 51H, C-Reactive Protein, Quantitative 2.9H, Pro-B-Type Natriuretic Peptide 1948H, Total Protein 5.9L, Albumin 2.2L, Globulin 3.7, Albumin/Globulin Ratio 0.6L, Cortisol AM Sample [ Pending], Vancomycin Level Trough 16.2H Height (Feet): 5 Height (Inches): 1.00 Weight (Pounds): 226 General Appearance: no apparent distress EENT: other - Intubated and vented Cardiovascular: tachycardia Respiratory/Chest: decreased breath sounds Abdomen: distended Objective No change Cristhian Granados MD April 04, 2020 10:33
[2020-04-04] MEDS ORDERED: Metoclopramide 10mg/2ml Inj IVP SCH (12:00)
--- NOTE | 2020-04-04 13:31 | Surgery Progress Note ---
Surgery Progress Note Subjective Additional Comments ill appearing no n/v on vent labs noted Objective Last 24 Hour Vital Signs Date Time Temp Pulse Resp B/P (MAP) Pulse Ox O2 Delivery O2 Flow Rate FiO2 04/04/20 12:00 Mechanical Ventilator Mechanical Ventilator 04/04/20 12:00 98.6 94 25 108/43 (64) 93 04/04/20 12:00 94 04/04/20 12:00 50 04/04/20 11:30 94 24 107/49 (68) 92 04/04/20 11:02 94 24 50 04/04/20 11:00 94 24 99/46 (63) 91 04/04/20 10:00 95 24 105/40 (61) 91 04/04/20 09:30 95 24 105/34 (57) 91 04/04/20 09:08 107/39 04/04/20 09:07 107/39 04/04/20 09:00 95 26 111/38 (62) 91 04/04/20 08:30 96 24 115/51 (72) 92 04/04/20 08:00 93 04/04/20 08:00 50 04/04/20 08:00 Mechanical Ventilator Mechanical Ventilator 04/04/20 08:00 98.7 90 24 129/55 (79) 88 04/04/20 07:00 107/39 04/04/20 07:00 107/39 04/04/20 07:00 93 25 107/39 (61) 92 04/04/20 06:58 93 24 50 04/04/20 06:45 93 24 107/40 (62) 92 04/04/20 06:45 107/40 04/04/20 06:45 107/40 04/04/20 06:30 92 25 110/36 (60) 91 04/04/20 06:15 91 26 111/32 (58) 92 04/04/20 06:00 111/32 04/04/20 06:00 111/32 04/04/20 06:00 90 25 114/45 (68) 92 04/04/20 05:30 111/45 04/04/20 05:15 89 25 112/40 (64) 94 04/04/20 05:15 114/41 04/04/20 05:03 114/40 04/04/20 05:00 112/40 04/04/20 05:00 112/40 04/04/20 05:00 89 24 114/40 (64) 94 04/04/20 04:45 114/40 04/04/20 04:45 114/40 04/04/20 04:45 88 24 132/47 (75) 95 04/04/20 04:30 95/38 04/04/20 04:30 95/38 04/04/20 04:30 87 24 95/38 (57) 94 04/04/20 04:15 109/40 04/04/20 04:15 109/40 04/04/20 04:15 87 24 109/40 (63) 94 04/04/20 04:00 50 04/04/20 04:00 103/59 04/04/20 04:00 103/59 04/04/20 04:00 98.7 88 25 103/59 (74) 92 04/04/20 04:00 Mechanical Ventilator Mechanical Ventilator 04/04/20 04:00 87 04/04/20 03:45 81/62 04/04/20 03:45 81/62 04/04/20 03:30 88 24 50 04/04/20 03:00 106/56 04/04/20 03:00 106/56 04/04/20 03:00 86 24 106/56 (73) 92 04/04/20 02:00 105/59 04/04/20 02:00 105/59 04/04/20 02:00 86 24 105/59 (74) 91 04/04/20 01:00 86 24 108/58 (75) 91 04/04/20 01:00 107/58 04/04/20 01:00 107/58 04/04/20 00:00 117/68 04/04/20 00:00 117/68 04/04/20 00:00 50 04/04/20 00:00 98.8 85 24 102/55 (71) 90 04/04/20 00:00 86 04/04/20 00:00 Mechanical Ventilator Mechanical Ventilator 04/03/20 23:47 109/56 04/03/20 23:46 109/56 04/03/20 23:15 86 24 105/57 (73) 91 04/03/20 23:15 109/56 04/03/20 23:05 86 24 50 5/18/20 23:00 86 24 107/60 (76) 92 5/18/20 23:00 105/57 518/20 23:00 105/57 518/20 22:45 102/55 518/20 22:45 102/55 518/20 22:30 86 24 106/57 (73) 92 518/20 22:30 108/58 518/20 22:30 108/58 518/20 22:15 86 24 114/56 (75) 92 518/20 22:15 106/57 518/20 22:15 106/57 518/20 22:00 124/59 518/20 22:00 124/59 51820 22:00 85 24 88/48 (61) 91 20 21:45 88/48 20 21:45 88/48 20 21:00 103/55 520 21:00 103/55 520 21:00 85 24 103/55 (71) 91 20 20:00 100 20 20:00 98.7 84 24 102/57 (72) 92 1820 20:00 Mechanical Ventilator Mechanical Ventilator 04/03/20 20:00 102/57 520 20:00 102/57 20 20:00 84 1820 19:30 85 24 101/55 (70) 92 20 19:00 85 24 50 5/20 19:00 86 24 104/62 (76) 92 20 18:45 96/53 518/20 18:35 96/53 518/20 18:30 85 24 101/52 (68) 91 518/20 18:00 85 24 99/51 (67) 92 518/20 17:30 85 24 95/52 (66) 91 518/20 17:00 85 24 98/48 (65) 91 20 16:30 85 24 100/53 (69) 91 20 16:00 86 20 16:00 Mechanical Ventilator Mechanical Ventilator 04/03/20 16:00 50 20 16:00 98.8 85 24 99/53 (68) 92 04/03/20 15:30 86 24 97/53 (68) 92 04/03/20 15:03 88 24 50 04/03/20 15:00 86 24 95/53 (67) 93 04/03/20 14:30 87 24 94/49 (64) 94 04/03/20 14:08 100/54 04/03/20 14:00 89 25 100/51 (67) 90 I&O Intake and Output 04/03/20 04/04/20 19:00 07:00 Intake Total 1569.32867 ml 1520.18641 ml Output Total 780 ml 850 ml Balance 789.69318 ml 670.01504 ml Free Water 120 ml IV Total 1374.02829 ml 1520.81373 ml Tube Feeding 75 ml 0 ml Output Urine Total 780 ml 850 ml # Bowel Movements 2 Dressing: other Wound: other Drains: other Cardiovascular: RSR Respiratory: decreased breath sounds Abdomen: soft, non-tender, present bowel sounds Extremities: edema, no cyanosis Laboratory Tests Test 04/03/20 21:00 04/04/20 03:35 Urine Color Yellow Urine Appearance Clear Urine pH 5 (4.5-8.0) Urine Specific [place] 1.015 (1.005-1.035) Urine Protein Negative (NEGATIVE) Urine Glucose (UA) Negative (NEGATIVE) Urine Ketones 1+ (NEGATIVE) H Urine Blood 1+ (NEGATIVE) H Urine Nitrite Negative (NEGATIVE) Urine Bilirubin Negative (NEGATIVE) Urine Urobilinogen Normal MG/DL (0.0-1.0) Urine Leukocyte Esterase 1+ (NEGATIVE) H Urine RBC 0-2 /HPF (0 - 2) Urine WBC 0-2 /HPF (0 - 2) Urine Squamous Epithelial Cells Occasional /LPF Urine Bacteria Few /HPF (NONE) Urine Yeast Many /HPF (NONE) H White Blood Count 14.3 K/UL (4.8-10.8) H Red Blood Count 2.43 M/UL (4.20-5.40) L Hemoglobin 8.9 G/DL (12.0-16.0) L Hematocrit 25.8 % (37.0-47.0) L Mean Corpuscular Volume 106 FL (80-99) H Mean Corpuscular Hemoglobin 36.5 PG (27.0-31.0) H Mean Corpuscular Hemoglobin Concent 34.4 G/DL (32.0-36.0) Red Cell Distribution Width 22.9 % (11.6-14.8) H Platelet Count 100 K/UL (150-450) L Mean Platelet Volume 8.2 FL (6.5-10.1) Neutrophils (%) (Auto) 84.2 % (45.0-75.0) H Lymphocytes (%) (Auto) 8.0 % (20.0-45.0) L Monocytes (%) (Auto) 3.1 % (1.0-10.0) Eosinophils (%) (Auto) 4.5 % (0.0-3.0) H Basophils (%) (Auto) 0.2 % (0.0-2.0) Sodium Level 132 MMOL/L (136-145) L Potassium Level 3.6 MMOL/L (3.5-5.1) Chloride Level 94 MMOL/L (98-107) L Carbon Dioxide Level 37 MMOL/L (21-32) H Anion Gap 2 mmol/L (5-15) L Blood Urea Nitrogen 56 mg/dL (7-18) H Creatinine 0.6 MG/DL (0.55-1.30) Estimat Glomerular Filtration Rate > 60 mL/min (>60) Glucose Level 140 MG/DL (74-106) H Uric Acid 10.3 MG/DL (2.6-7.2) H Calcium Level 8.5 MG/DL (8.5-10.1) Phosphorus Level 4.5 MG/DL (2.5-4.9) Magnesium Level 2.5 MG/DL (1.8-2.4) H Total Bilirubin 2.1 MG/DL (0.2-1.0) H Direct Bilirubin 0.9 MG/DL (0.0-0.3) H Gamma Glutamyl Transpeptidase 702 U/L (5-85) H Aspartate Amino Transf (AST/SGOT) 662 U/L (15-37) H Alanine Aminotransferase (ALT/SGPT) 227 U/L (12-78) H Alkaline Phosphatase 463 U/L (46-116) H Ammonia 51 umol/L (11-32) H C-Reactive Protein, Quantitative 2.9 mg/dL (0.00-0.90) H Pro-B-Type Natriuretic Peptide 1948 pg/mL (0-125) H Total Protein 5.9 G/DL (6.4-8.2) L Albumin 2.2 G/DL (3.4-5.0) L Globulin 3.7 g/dL Albumin/Globulin Ratio 0.6 (1.0-2.7) L Cortisol AM Sample Pending Vancomycin Level Trough 16.2 ug/mL (5.0-12.0) H Plan Problems: (1) Cellulitis Assessment & Plan: bilateral lower extremity cellulitis / edema chronic venous status changes dermatitis no abscess no purulent drainage ulcerations forming. keep lower extremity elevated while in bed apply skin protectant / moisturizing cream daily okay to shower okay to wrap soft after cream abx as per ID for cellulitis okay for diet duplex ordered trend labs will follow with recs thank you No evidence of deep venous thrombosis involving the visualized veins of the RIGHT lower extremity. refused eval of left COVID ++ cxr noted cont current supportive care improving labs stable improving slowly wean pressors as tolerated Patient is acutely worsened intubated on vent support 2 pressors now worsening labs worsening Prognosis is guarded we will continue with maximal support efforts weaning vent weaning pressors leukocytosis trend lft's Diffuse bilateral interstitial and airspace opacities worsening again vent settings high on pressors DAILY ESTIMATED NEEDS: Needs based on obesity, cirrhosis, critical care/ 61kg abw 11-14 (actual body wt 102kg) kcals/kg 8382-1994 total kcals 1.5-2.5kg IBW (48kg IBW) g protein/kg 71-120 g total protein 25-30 mL/kg 2941-6462 total fluid mLs NUTRITION DIAGNOSIS: *Swallowing difficulty R/T respiratory failure as evidenced by pt now orally intubated, on pressor support, Covid-19 positive. *Decreased sodium and fat intake needs R/T cirrhosis dx, morbid obesity as evidenced by elev AST, elev NH3, BMI >50 (INACTIVE) CURRENT TF:NEPRO @33ml/hr-> HELD FOR RESIDUALS ENTERAL NUTRITION RECOMMENDATIONS: Nepro @ 33ml/hr x 24 hrs to provide 792ml, 1425kcal, 64g prot, 575ml free water As medically able rec to resume Nepro w/ goal of 33ml/hr x24 hrs -> flush per MD, HOB over 30 degrees. -------- -> WITHOUT HEMODYNAMIC STABILITY, rec trophic feeding of Nepro @ 5-10ml/hr ADDITIONAL RECOMMENDATIONS: * Calibrated bedscale wt for accurate CBW Current EMR wt 220#'s vs initial bedscale wt 283lbs * Monitor HEMODYNAMIC stability- on pressors x2 * Monitor lytes- K trend up, phos elev, rec TF change to Nepro at this time * Monitor BGs closely- on magdalena only now * Monitor LFTs: trending up (new TF order will provide 14g less fat) . (2) COVID-19 Assessment & Plan: see above Theron Sotomayor April 04, 2020 13:31
--- NOTE | 2020-04-04 18:44 | General Progress Note ---
Assessment/Plan Problem List: (1) Cellulitis ICD Codes: L03.90 - Cellulitis, unspecified SNOMED: 640353616 Qualifiers: Qualified Codes: L03.119 - Cellulitis of unspecified part of limb Status: progressing, unchanged Assessment/Plan: respiratory failure eeg shows severe encephalopathy have told dpoa re futile care and she is aware hcv critical condition comatose brain encephalopathy ARF cirrhosis poor prognosis Subjective ROS Limited/Unobtainable: Yes Allergies: Coded Allergies: No Known Allergies (Unverified , 02/29/20) Objective Last 24 Hour Vital Signs Date Time Temp Pulse Resp B/P (MAP) Pulse Ox O2 Delivery O2 Flow Rate FiO2 04/04/20 18:30 94 24 95/55 (68) 96 04/04/20 18:00 94 26 96/57 (70) 96 04/04/20 17:30 94 29 98/53 (68) 95 04/04/20 17:22 90/41 04/04/20 17:11 94 24 91 Mechanical Ventilator 50 04/04/20 17:00 94 25 93/53 (66) 95 04/04/20 16:30 96 24 102/48 (66) 93 04/04/20 16:00 99.0 96 24 106/42 (63) 93 04/04/20 16:00 Mechanical Ventilator Mechanical Ventilator 04/04/20 16:00 96 04/04/20 16:00 50 04/04/20 15:30 95 24 73/27 (42) 92 04/04/20 15:02 89 24 50 04/04/20 15:00 96 24 107/41 (63) 95 04/04/20 15:00 107/41 04/04/20 15:00 90/41 04/04/20 15:00 107/41 04/04/20 14:30 86 24 55/33 (40) 84 04/04/20 14:00 94 24 90/32 (51) 90 04/04/20 14:00 97/34 04/04/20 14:00 97/34 04/04/20 13:30 94 24 105/31 (55) 91 04/04/20 13:00 105/41 04/04/20 13:00 105/41 04/04/20 13:00 90/32 04/04/20 13:00 95 24 99/43 (61) 91 04/04/20 12:00 Mechanical Ventilator Mechanical Ventilator 04/04/20 12:00 98.6 94 25 108/43 (64) 93 04/04/20 12:00 94 04/04/20 12:00 109/31 04/04/20 12:00 109/31 04/04/20 12:00 50 04/04/20 11:30 94 24 107/49 (68) 92 04/04/20 11:02 94 24 50 04/04/20 11:00 104/43 04/04/20 11:00 104/43 04/04/20 11:00 94 24 99/46 (63) 91 04/04/20 10:00 95 24 105/40 (61) 91 04/04/20 10:00 107/35 04/04/20 10:00 107/35 04/04/20 09:30 95 24 105/34 (57) 91 04/04/20 09:08 107/39 04/04/20 09:07 107/39 04/04/20 09:00 100/45 04/04/20 09:00 95 26 111/38 (62) 91 04/04/20 08:30 96 24 115/51 (72) 92 04/04/20 08:00 93 04/04/20 08:00 50 04/04/20 08:00 Mechanical Ventilator Mechanical Ventilator 04/04/20 08:00 126/39 04/04/20 08:00 126/39 04/04/20 08:00 98.7 90 24 129/55 (79) 88 04/04/20 07:00 107/39 04/04/20 07:00 107/39 04/04/20 07:00 93 25 107/39 (61) 92 04/04/20 06:58 93 24 50 04/04/20 06:45 93 24 107/40 (62) 92 04/04/20 06:45 107/40 04/04/20 06:45 107/40 04/04/20 06:30 92 25 110/36 (60) 91 04/04/20 06:15 91 26 111/32 (58) 92 04/04/20 06:00 111/32 04/04/20 06:00 111/32 04/04/20 06:00 90 25 114/45 (68) 92 04/04/20 05:30 111/45 04/04/20 05:15 89 25 112/40 (64) 94 04/04/20 05:15 114/41 04/04/20 05:03 114/40 04/04/20 05:00 112/40 04/04/20 05:00 112/40 04/04/20 05:00 89 24 114/40 (64) 94 04/04/20 04:45 114/40 04/04/20 04:45 114/40 04/04/20 04:45 88 24 132/47 (75) 95 04/04/20 04:30 95/38 04/04/20 04:30 95/38 04/04/20 04:30 87 24 95/38 (57) 94 04/04/20 04:15 109/40 04/04/20 04:15 109/40 04/04/20 04:15 87 24 109/40 (63) 94 04/04/20 04:00 50 04/04/20 04:00 103/59 04/04/20 04:00 103/59 04/04/20 04:00 98.7 88 25 103/59 (74) 92 04/04/20 04:00 Mechanical Ventilator Mechanical Ventilator 04/04/20 04:00 87 04/04/20 03:45 81/62 04/04/20 03:45 81/62 04/04/20 03:30 88 24 50 04/04/20 03:00 106/56 04/04/20 03:00 106/56 04/04/20 03:00 86 24 106/56 (73) 92 04/04/20 02:00 105/59 04/04/20 02:00 105/59 04/04/20 02:00 86 24 105/59 (74) 91 04/04/20 01:00 86 24 108/58 (75) 91 04/04/20 01:00 107/58 04/04/20 01:00 107/58 04/04/20 00:00 117/68 04/04/20 00:00 117/68 04/04/20 00:00 50 04/04/20 00:00 98.8 85 24 102/55 (71) 90 04/04/20 00:00 86 04/04/20 00:00 Mechanical Ventilator Mechanical Ventilator 5/18/20 23:47 109/56 520 23:46 109/56 520 23:15 86 24 105/57 (73) 91 20 23:15 109/56 04/03/20 23:05 86 24 50 520 23:00 86 24 107/60 (76) 92 20 23:00 105/57 1820 23:00 105/57 20 22:45 102/55 20 22:45 102/55 20 22:30 86 24 106/57 (73) 92 04/03/20 22:30 108/58 20 22:30 108/58 04/03/20 22:15 86 24 114/56 (75) 92 04/03/20 22:15 106/57 04/03/20 22:15 106/57 04/03/20 22:00 124/59 20 22:00 124/59 04/03/20 22:00 85 24 88/48 (61) 91 04/03/20 21:45 88/48 04/03/20 21:45 88/48 20 21:00 103/55 20 21:00 103/55 20 21:00 85 24 103/55 (71) 91 20 20:00 100 20 20:00 98.7 84 24 102/57 (72) 92 20 20:00 Mechanical Ventilator Mechanical Ventilator 04/03/20 20:00 102/57 20 20:00 102/57 20 20:00 84 20 19:30 85 24 101/55 (70) 92 20 19:00 85 24 50 20 19:00 86 24 104/62 (76) 92 20 18:45 96/53 Intake and Output 04/03/20 04/04/20 19:00 07:00 Intake Total 1569.54656 ml 1520.00244 ml Output Total 780 ml 850 ml Balance 789.21575 ml 670.42725 ml Free Water 120 ml IV Total 1374.90573 ml 1520.54160 ml Tube Feeding 75 ml 0 ml Output Urine Total 780 ml 850 ml # Bowel Movements 2 Laboratory Tests 04/03/20 21:00: Urine Color Yellow, Urine Appearance Clear, Urine pH 5, Urine Specific [place] 1.015, Urine Protein Negative, Urine Glucose (UA) Negative, Urine Ketones 1+H, Urine Blood 1+H, Urine Nitrite Negative, Urine Bilirubin Negative, Urine Urobilinogen Normal, Urine Leukocyte Esterase 1+H, Urine RBC 0-2, Urine WBC 0-2 , Urine Squamous Epithelial Cells Occasional, Urine Bacteria Few, Urine Yeast ManyH 04/04/20 03:35: White Blood Count 14.3H, Red Blood Count 2.43L, Hemoglobin 8.9L, Hematocrit 25.8L, Mean Corpuscular Volume 106H, Mean Corpuscular Hemoglobin 36.5H, Mean Corpuscular Hemoglobin Concent 34.4, Red Cell Distribution Width 22.9H, Platelet Count 100L, Mean Platelet Volume 8.2, Neutrophils (%) (Auto) 84.2H, Lymphocytes (%) (Auto) 8.0L, Monocytes (%) (Auto) 3.1, Eosinophils (%) (Auto) 4.5H, Basophils (%) (Auto) 0.2, Sodium Level 132L, Potassium Level 3.6, Chloride Level 94L, Carbon Dioxide Level 37H, Anion Gap 2L, Blood Urea Nitrogen 56H, Creatinine 0.6, Estimat Glomerular Filtration Rate > 60, Glucose Level 140H , Uric Acid 10.3H, Calcium Level 8.5, Phosphorus Level 4.5, Magnesium Level 2.5H , Total Bilirubin 2.1H, Direct Bilirubin 0.9H, Gamma Glutamyl Transpeptidase 702H, Aspartate Amino Transf (AST/SGOT) 662H, Alanine Aminotransferase (ALT/SGPT ) 227H, Alkaline Phosphatase 463H, Ammonia 51H, C-Reactive Protein, Quantitative 2.9H, Pro-B-Type Natriuretic Peptide 1948H, Total Protein 5.9L, Albumin 2.2L, Globulin 3.7, Albumin/Globulin Ratio 0.6L, Cortisol AM Sample 1.0 , Vancomycin Level Trough 16.2H Height (Feet): 5 Height (Inches): 1.00 Weight (Pounds): 226 General Appearance: lethargic Celso Moreno MD April 04, 2020 18:44
--- NOTE | 2020-04-04 19:09 | Cardiology Progress Note ---
Assessment/Plan Assessment/Plan 1. Acute hypoxic hypercapnic respiratory failure, due to bilateral airspace disease in additional to bilateral pleural effusion caused by COVID-19 infection , grim prognosis, low saturation had resulted in anoxic encephalopathy. 2. Septic shock on 3 vasopressors, keep MAP at 65 mmHg. Normal LV function with LVEF at 60%. 3. Consumptive coagulopathy with thrombocytopenia, off lovenox after 6 days of treatment. 4. Bilateral lower extremity cellulitis with Pseudomonas aeruginosa. 5. HCV infection with liver cirrhosis. 6. Anoxic encephalopathy. Subjective Subjective Sinus rhythm at rate of 94. On 3 vasopressors. Intubated. Objective Last 24 Hour Vital Signs Date Time Temp Pulse Resp B/P (MAP) Pulse Ox O2 Delivery O2 Flow Rate FiO2 04/04/20 18:30 94 24 95/55 (68) 96 04/04/20 18:00 94 26 96/57 (70) 96 04/04/20 17:30 94 29 98/53 (68) 95 04/04/20 17:22 90/41 04/04/20 17:11 94 24 91 Mechanical Ventilator 50 04/04/20 17:00 94 25 93/53 (66) 95 04/04/20 16:30 96 24 102/48 (66) 93 04/04/20 16:00 99.0 96 24 106/42 (63) 93 04/04/20 16:00 Mechanical Ventilator Mechanical Ventilator 04/04/20 16:00 96 04/04/20 16:00 50 04/04/20 15:30 95 24 73/27 (42) 92 04/04/20 15:02 89 24 50 04/04/20 15:00 96 24 107/41 (63) 95 04/04/20 15:00 107/41 04/04/20 15:00 90/41 04/04/20 15:00 107/41 04/04/20 14:30 86 24 55/33 (40) 84 04/04/20 14:00 94 24 90/32 (51) 90 04/04/20 14:00 97/34 04/04/20 14:00 97/34 04/04/20 13:30 94 24 105/31 (55) 91 04/04/20 13:00 105/41 04/04/20 13:00 105/41 04/04/20 13:00 90/32 04/04/20 13:00 95 24 99/43 (61) 91 04/04/20 12:00 Mechanical Ventilator Mechanical Ventilator 04/04/20 12:00 98.6 94 25 108/43 (64) 93 04/04/20 12:00 94 04/04/20 12:00 109/31 04/04/20 12:00 109/31 04/04/20 12:00 50 04/04/20 11:30 94 24 107/49 (68) 92 04/04/20 11:02 94 24 50 04/04/20 11:00 104/43 04/04/20 11:00 104/43 04/04/20 11:00 94 24 99/46 (63) 91 04/04/20 10:00 95 24 105/40 (61) 91 04/04/20 10:00 107/35 04/04/20 10:00 107/35 04/04/20 09:30 95 24 105/34 (57) 91 04/04/20 09:08 107/39 04/04/20 09:07 107/39 04/04/20 09:00 100/45 04/04/20 09:00 95 26 111/38 (62) 91 04/04/20 08:30 96 24 115/51 (72) 92 04/04/20 08:00 93 04/04/20 08:00 50 04/04/20 08:00 Mechanical Ventilator Mechanical Ventilator 04/04/20 08:00 126/39 04/04/20 08:00 126/39 04/04/20 08:00 98.7 90 24 129/55 (79) 88 04/04/20 07:00 107/39 04/04/20 07:00 107/39 04/04/20 07:00 93 25 107/39 (61) 92 04/04/20 06:58 93 24 50 04/04/20 06:45 93 24 107/40 (62) 92 04/04/20 06:45 107/40 04/04/20 06:45 107/40 04/04/20 06:30 92 25 110/36 (60) 91 04/04/20 06:15 91 26 111/32 (58) 92 04/04/20 06:00 111/32 04/04/20 06:00 111/32 04/04/20 06:00 90 25 114/45 (68) 92 04/04/20 05:30 111/45 04/04/20 05:15 89 25 112/40 (64) 94 04/04/20 05:15 114/41 04/04/20 05:03 114/40 04/04/20 05:00 112/40 04/04/20 05:00 112/40 04/04/20 05:00 89 24 114/40 (64) 94 04/04/20 04:45 114/40 04/04/20 04:45 114/40 04/04/20 04:45 88 24 132/47 (75) 95 04/04/20 04:30 95/38 04/04/20 04:30 95/38 04/04/20 04:30 87 24 95/38 (57) 94 04/04/20 04:15 109/40 04/04/20 04:15 109/40 04/04/20 04:15 87 24 109/40 (63) 94 04/04/20 04:00 50 04/04/20 04:00 103/59 04/04/20 04:00 103/59 04/04/20 04:00 98.7 88 25 103/59 (74) 92 04/04/20 04:00 Mechanical Ventilator Mechanical Ventilator 04/04/20 04:00 87 04/04/20 03:45 81/62 04/04/20 03:45 81/62 04/04/20 03:30 88 24 50 04/04/20 03:00 106/56 04/04/20 03:00 106/56 04/04/20 03:00 86 24 106/56 (73) 92 04/04/20 02:00 105/59 04/04/20 02:00 105/59 04/04/20 02:00 86 24 105/59 (74) 91 04/04/20 01:00 86 24 108/58 (75) 91 04/04/20 01:00 107/58 04/04/20 01:00 107/58 04/04/20 00:00 117/68 04/04/20 00:00 117/68 04/04/20 00:00 50 04/04/20 00:00 98.8 85 24 102/55 (71) 90 04/04/20 00:00 86 04/04/20 00:00 Mechanical Ventilator Mechanical Ventilator 04/03/20 23:47 109/56 04/03/20 23:46 109/56 04/03/20 23:15 86 24 105/57 (73) 91 20 23:15 109/56 20 23:05 86 24 50 04/03/20 23:00 86 24 107/60 (76) 92 04/03/20 23:00 105/57 04/03/20 23:00 105/57 04/03/20 22:45 102/55 04/03/20 22:45 102/55 04/03/20 22:30 86 24 106/57 (73) 92 04/03/20 22:30 108/58 04/03/20 22:30 108/58 04/03/20 22:15 86 24 114/56 (75) 92 04/03/20 22:15 106/57 04/03/20 22:15 106/57 04/03/20 22:00 124/59 04/03/20 22:00 124/59 04/03/20 22:00 85 24 88/48 (61) 91 04/03/20 21:45 88/48 04/03/20 21:45 88/48 04/03/20 21:00 103/55 04/03/20 21:00 103/55 04/03/20 21:00 85 24 103/55 (71) 91 04/03/20 20:00 100 04/03/20 20:00 98.7 84 24 102/57 (72) 92 04/03/20 20:00 Mechanical Ventilator Mechanical Ventilator 04/03/20 20:00 102/57 04/03/20 20:00 102/57 04/03/20 20:00 84 04/03/20 19:30 85 24 101/55 (70) 92 04/03/20 19:00 85 24 50 04/03/20 19:00 86 24 104/62 (76) 92 Intake and Output 04/03/20 04/04/20 19:00 07:00 Intake Total 1569.07937 ml 1520.44439 ml Output Total 780 ml 850 ml Balance 789.08137 ml 670.49618 ml Free Water 120 ml IV Total 1374.42317 ml 1520.23185 ml Tube Feeding 75 ml 0 ml Output Urine Total 780 ml 850 ml # Bowel Movements 2 2D Echo: EF 60%, Mild LVH, Mild MR. RVSP 44 mmHg, Normal LVD Fxn Laboratory Tests Test 04/03/20 21:00 04/04/20 03:35 Urine Color Yellow Urine Appearance Clear Urine pH 5 (4.5-8.0) Urine Specific [place] 1.015 (1.005-1.035) Urine Protein Negative (NEGATIVE) Urine Glucose (UA) Negative (NEGATIVE) Urine Ketones 1+ (NEGATIVE) H Urine Blood 1+ (NEGATIVE) H Urine Nitrite Negative (NEGATIVE) Urine Bilirubin Negative (NEGATIVE) Urine Urobilinogen Normal MG/DL (0.0-1.0) Urine Leukocyte Esterase 1+ (NEGATIVE) H Urine RBC 0-2 /HPF (0 - 2) Urine WBC 0-2 /HPF (0 - 2) Urine Squamous Epithelial Cells Occasional /LPF Urine Bacteria Few /HPF (NONE) Urine Yeast Many /HPF (NONE) H White Blood Count 14.3 K/UL (4.8-10.8) H Red Blood Count 2.43 M/UL (4.20-5.40) L Hemoglobin 8.9 G/DL (12.0-16.0) L Hematocrit 25.8 % (37.0-47.0) L Mean Corpuscular Volume 106 FL (80-99) H Mean Corpuscular Hemoglobin 36.5 PG (27.0-31.0) H Mean Corpuscular Hemoglobin Concent 34.4 G/DL (32.0-36.0) Red Cell Distribution Width 22.9 % (11.6-14.8) H Platelet Count 100 K/UL (150-450) L Mean Platelet Volume 8.2 FL (6.5-10.1) Neutrophils (%) (Auto) 84.2 % (45.0-75.0) H Lymphocytes (%) (Auto) 8.0 % (20.0-45.0) L Monocytes (%) (Auto) 3.1 % (1.0-10.0) Eosinophils (%) (Auto) 4.5 % (0.0-3.0) H Basophils (%) (Auto) 0.2 % (0.0-2.0) Sodium Level 132 MMOL/L (136-145) L Potassium Level 3.6 MMOL/L (3.5-5.1) Chloride Level 94 MMOL/L (98-107) L Carbon Dioxide Level 37 MMOL/L (21-32) H Anion Gap 2 mmol/L (5-15) L Blood Urea Nitrogen 56 mg/dL (7-18) H Creatinine 0.6 MG/DL (0.55-1.30) Estimat Glomerular Filtration Rate > 60 mL/min (>60) Glucose Level 140 MG/DL (74-106) H Uric Acid 10.3 MG/DL (2.6-7.2) H Calcium Level 8.5 MG/DL (8.5-10.1) Phosphorus Level 4.5 MG/DL (2.5-4.9) Magnesium Level 2.5 MG/DL (1.8-2.4) H Total Bilirubin 2.1 MG/DL (0.2-1.0) H Direct Bilirubin 0.9 MG/DL (0.0-0.3) H Gamma Glutamyl Transpeptidase 702 U/L (5-85) H Aspartate Amino Transf (AST/SGOT) 662 U/L (15-37) H Alanine Aminotransferase (ALT/SGPT) 227 U/L (12-78) H Alkaline Phosphatase 463 U/L (46-116) H Ammonia 51 umol/L (11-32) H C-Reactive Protein, Quantitative 2.9 mg/dL (0.00-0.90) H Pro-B-Type Natriuretic Peptide 1948 pg/mL (0-125) H Total Protein 5.9 G/DL (6.4-8.2) L Albumin 2.2 G/DL (3.4-5.0) L Globulin 3.7 g/dL Albumin/Globulin Ratio 0.6 (1.0-2.7) L Cortisol AM Sample 1.0 UG/DL Vancomycin Level Trough 16.2 ug/mL (5.0-12.0) H Microbiology Date/Time Source Procedure Growth Status 04/02/20 13:40 Indwelling Cath Urine Culture - Final Nidhi Albicans Complete Objective HEENT: Atraumatic and normocephalic. Anicteric. Intubated. NECK: JVP cannot be assessed. No carotid bruit. + ETT. CARDIOVASCULAR: Normal S1, S2. Regular rate and rhythm. No murmurs, gallops, or rubs. PMI is at fourth intercostal space at left midclavicular line. LUNGS: Bibasilar crackles. ABDOMEN: Soft, nontender, and nondistended. No hepatosplenomegaly. Positive bowel sounds. EXTREMITIES: A 3+ edema bilaterally associated with erythema with blistering and crust formation of both feet. Berto Gonzalez MD April 04, 2020 19:09
[2020-04-04] MEDS: Dyna-Hex 2% Top Sol 2oz TOPIC SCH (20:13)
[2020-04-04] MEDS: Vasopressin 100 UNITS in NS 95 ML IV PRN (21:31)
[2020-04-04] MEDS: Norepinephrine Bitartrate 16 MG in D5W 500ml 550 ML IV SCH (23:00)
[2020-04-05] VITALS (50 sets, daily range): BP systolic 56–120; BP diastolic 25–57
[2020-04-05] MEDS: NovoLOG Insulin Flexpen SUBQ SCH ×5 (00:02→23:53)
--- NOTE | 2020-04-05 00:06 | Pulmonolgy Critical Care Note ---
Critical Care - Asmt/Plan Assessment/Plan: Pulmonary CCM Progress Note HPI Patient is a 59 year old woman with severe COVID 19 Pneumonia, past history of significant obesity, cirrhosis, bilateral lower extremity swelling, cellulitis Persistent severe respiratory failure. Patient had previous hospitalizations for cellulitis. PMH Hypothyroidism, Obesity, Cirrhosis, Anemia, Anxiety, Cellulitis Remains unresponsive off sedation > 48 hours, pupils dilated, minimally reactive to pain, non purposeful, not triggering ventilator, CT Head pending, not performed as COVID-19 positive. Neurology consulted. EEG severe encephalopathy Previous VQ no significant perfusion abnormality, prev LE dupplex negative, has high DDimer On three pressors Did not tolerating Proning Worsening PaO2/FIO2, P 16, FIO2 100%%, has elevated PaCO2 Renal following Hypothyroidism, elevated glucose, Endocrine following, low 9:00 AM Cort[facility] previously - Remdesavir requested for when available, [facility] - not available as yet Previously received IL6 inhibitor inititial dose (4mg/Kg - all that was available), subsequent dose pending, previously on steroids See earlier on 04/04/2020 Allergies: No Known Allergies Past Medical History: Obesity, Cirrhosis, Anemia, Anxiety, Cellulitis, Hypothyroidism All Other Systems: negative except mentioned in HPI Physical Exam Vital Signs Noted General Appearance: Obese, no reaction to pain despite no sedation, intubated Head: normocephalic, atraumatic Eyes: pupils dilated and non responsive to light bilaterally ENT: moist MM, no LN Respiratory: Bilateral crackles, bilateral rhonchi, not overbreathing the ventilator Cardiovascular: regular rate, rhythm, HS1, HS2 RRR Gastrointestinal: Obese, soft non tender, ND Musculoskeletal: Mild edema and erythema bilateral lower extremity, patient has crusting on both feet, Neurologic: non responsive, no focal signs noted, no seizures, no response to pain Impression: Covid Pneumonia, s/p IL6 inhibitor, sp Hydroxychloroquine, Ivermectin Severe Respiratory Failure, high PEEP Persistent hypoxia, worsening PCO2 Bilateral dilated non reactive pupils, patient minimally responsive despite no sedation Not triggering ventilator currently Minimal response to pain Increased WCC - ID following ID following Bilateral Lower Extremity Cellulitis on admission Elevated NPA, severe bilateral edema - improving Cirrhosis, elevated transaminases/ammonia Splenomegaly Anemia Hypothyroidism Extremely poor prognosis Plan Neurology Consultated/CT head pending IV Antibiotics per ID S/p trial of steroids - currently 10 mg daily, being weaned to off, s/p IL6 inhibitor previously Surgery following for wounds Hematology following for anemia, observing for Neutropenia/thrombocytopenia Renal following for hypernatremia/volume status Endocrine following for Hypothyroidism, on ISS Monitor labs Bronchodilators PPX - SCD AC VC Proning PRN Supplement electrolytes PRN Albuterol PRN 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 Previously d/w Patients daughter Tri - discussed grave prognosis, possibility of patient having had possible stroke/IC event, suggested DNAR - wants full code Case d/w RN Previously [facility] - Remdesavir ordered, awaiting supply Labs Noted Chest X-Ray: Cardiomegaly, left lower lobe atelectasis versus effusion, worsening infiltrates/congestion Subjective ROS Limited/Unobtainable: No Constitutional: Reports: no symptoms Gastrointestinal/Abdominal: Reports: no symptoms Musculoskeletal: Reports: other - SOB Allergies: Coded Allergies: No Known Allergies (Unverified , 02/29/20) ICU time 50 minutes Critical Care - Objective Last 24 Hour Vital Signs Date Time Temp Pulse Resp B/P (MAP) Pulse Ox O2 Delivery O2 Flow Rate FiO2 04/05/20 00:00 104/46 04/04/20 23:00 90 29 109/44 (65) 91 04/04/20 23:00 104/46 04/04/20 22:56 91 24 50 04/04/20 22:30 90 33 104/46 (65) 92 04/04/20 22:15 90 30 102/60 (74) 91 04/04/20 22:00 91 34 99/55 (70) 88 04/04/20 22:00 90/59 04/04/20 22:00 90/59 04/04/20 21:30 91 27 79/45 (56) 90 04/04/20 21:15 92 26 82/49 (60) 94 04/04/20 21:00 92 30 85/30 (48) 96 04/04/20 21:00 82/53 04/04/20 21:00 82/49 04/04/20 20:45 93 32 87/49 (62) 93 04/04/20 20:30 92 27 90/50 (63) 94 04/04/20 20:26 83/47 04/04/20 20:26 83/47 04/04/20 20:19 93 24 83/47 (59) 86 5/19/20 20:15 93 18 72/30 (44) 88 519/20 20:00 Mechanical Ventilator Mechanical Ventilator 20 20:00 93 519/20 20:00 80 519/20 20:00 85/56 5/20 20:00 85/56 5/20 20:00 101.0 93 26 85/56 (66) 95 20 19:15 93 24 98/42 (60) 95 20 19:10 97 24 50 5/20 19:00 93 24 88/51 (63) 96 20 19:00 93/50 5/20 19:00 93/50 520 18:30 94 24 95/55 (68) 96 20 18:00 89/56 520 18:00 89/56 04/04/20 18:00 94 26 96/57 (70) 96 04/04/20 17:30 94 29 98/53 (68) 95 20 17:22 90/41 04/04/20 17:11 94 24 91 Mechanical Ventilator 50 04/04/20 17:00 94 25 93/53 (66) 95 20 17:00 97/44 20 17:00 97/44 20 16:30 96 24 102/48 (66) 93 20 16:00 99.0 96 24 106/42 (63) 93 20 16:00 104/51 20 16:00 104/51 20 16:00 Mechanical Ventilator Mechanical Ventilator 04/04/20 16:00 96 20 16:00 50 20 15:30 95 24 73/27 (42) 92 20 15:02 89 24 50 20 15:00 96 24 107/41 (63) 95 20 15:00 107/41 5/20 15:00 90/41 520 15:00 107/41 5/20 14:30 86 24 55/33 (40) 84 20 14:00 94 24 90/32 (51) 90 20 14:00 97/34 520 14:00 97/34 04/04/20 13:30 94 24 105/31 (55) 91 04/04/20 13:00 105/41 04/04/20 13:00 105/41 04/04/20 13:00 90/32 04/04/20 13:00 95 24 99/43 (61) 91 04/04/20 12:00 Mechanical Ventilator Mechanical Ventilator 04/04/20 12:00 98.6 94 25 108/43 (64) 93 04/04/20 12:00 94 04/04/20 12:00 109/31 04/04/20 12:00 109/31 04/04/20 12:00 50 04/04/20 11:30 94 24 107/49 (68) 92 04/04/20 11:02 94 24 50 04/04/20 11:00 104/43 04/04/20 11:00 104/43 04/04/20 11:00 94 24 99/46 (63) 91 04/04/20 10:00 95 24 105/40 (61) 91 04/04/20 10:00 107/35 04/04/20 10:00 107/35 04/04/20 09:30 95 24 105/34 (57) 91 04/04/20 09:08 107/39 04/04/20 09:07 107/39 04/04/20 09:00 100/45 04/04/20 09:00 95 26 111/38 (62) 91 04/04/20 08:30 96 24 115/51 (72) 92 04/04/20 08:00 93 04/04/20 08:00 50 04/04/20 08:00 Mechanical Ventilator Mechanical Ventilator 04/04/20 08:00 126/39 04/04/20 08:00 126/39 04/04/20 08:00 98.7 90 24 129/55 (79) 88 04/04/20 07:00 107/39 04/04/20 07:00 107/39 04/04/20 07:00 93 25 107/39 (61) 92 04/04/20 06:58 93 24 50 04/04/20 06:45 93 24 107/40 (62) 92 04/04/20 06:45 107/40 04/04/20 06:45 107/40 04/04/20 06:30 92 25 110/36 (60) 91 04/04/20 06:15 91 26 111/32 (58) 92 04/04/20 06:00 111/32 04/04/20 06:00 111/32 04/04/20 06:00 90 25 114/45 (68) 92 04/04/20 05:30 111/45 04/04/20 05:15 89 25 112/40 (64) 94 04/04/20 05:15 114/41 04/04/20 05:03 114/40 04/04/20 05:00 112/40 04/04/20 05:00 112/40 04/04/20 05:00 89 24 114/40 (64) 94 04/04/20 04:45 114/40 04/04/20 04:45 114/40 04/04/20 04:45 88 24 132/47 (75) 95 04/04/20 04:30 95/38 04/04/20 04:30 95/38 04/04/20 04:30 87 24 95/38 (57) 94 04/04/20 04:15 109/40 04/04/20 04:15 109/40 04/04/20 04:15 87 24 109/40 (63) 94 04/04/20 04:00 50 04/04/20 04:00 103/59 04/04/20 04:00 103/59 04/04/20 04:00 98.7 88 25 103/59 (74) 92 04/04/20 04:00 Mechanical Ventilator Mechanical Ventilator 04/04/20 04:00 87 04/04/20 03:45 81/62 04/04/20 03:45 81/62 04/04/20 03:30 88 24 50 04/04/20 03:00 106/56 04/04/20 03:00 106/56 04/04/20 03:00 86 24 106/56 (73) 92 04/04/20 02:00 105/59 04/04/20 02:00 105/59 04/04/20 02:00 86 24 105/59 (74) 91 04/04/20 01:00 86 24 108/58 (75) 91 04/04/20 01:00 107/58 04/04/20 01:00 107/58 Micro: Microbiology Date/Time Source Procedure Growth Status 04/02/20 13:40 Indwelling Cath Urine Culture - Final Nidhi Albicans Complete Accucheck: 168 Critical Care - Subjective ROS Limited/Unobtainable: Yes Condition: critical EKG Rhythm: Sinus Rhythm FI02: 50 Vent Support Breath Rate: 24 Vent Support Mode: AC Vent Tidal Volume: 400 Sputum Amount: Small PEEP: 16.0 PIP: 34 Tube Feeding Amount: 0 I&O: Intake and Output 04/04/20 04/05/20 19:00 07:00 Intake Total 2208.075 ml 643.021 ml Output Total 390 ml 90 ml Balance 1818.075 ml 553.021 ml IV Total 2208.075 ml 643.021 ml Tube Feeding 0 ml 0 ml Output Urine Total 390 ml 90 ml ET-Tube: 7.5 ET Position: 21 Doron Carrillo MD April 05, 2020 00:06
[2020-04-05] MEDS: Norepinephrine Bitartrate 16 MG in D5W 500ml 550 ML IV SCH ×3 (00:43→19:02)
[2020-04-05] MEDS: DOPamine 400mg/250ml 250 ML IV SCH ×8 (02:59→23:00)
[2020-04-05] MEDS: Vancomycin 500 MG in NS 110 ML IVPB SCH ×2 (05:17→18:00)
[2020-04-05] MEDS: Meropenem 1 GM in NS 55 ML IVPB SCH ×3 (05:17→22:00)
[2020-04-05] MEDS: Lactulose 20gm/30ml UDC ORAL SCH ×3 (05:17→22:00)
[2020-04-05] MEDS: Metoclopramide 10mg/2ml Inj IVP SCH ×4 (05:17→23:17)
[2020-04-05 05:30] LABS: HEMATOCRIT 26.3 % (37.0-47.0); HEMOGLOBIN 9.1 G/DL (12.0-16.0); MEAN CORPUSCULAR VOLUME 106 FL (80-99); PLATELET COUNT 109 K/UL (150-450); RED BLOOD COUNT 2.48 M/UL (4.20-5.40); RED CELL DISTRIBUTION WIDTH 21.7 % (11.6-14.8); WHITE BLOOD COUNT 12.3 K/UL (4.8-10.8)
[2020-04-05 05:54] LABS: AMMONIA 117 umol/L (11-32)
[2020-04-05 05:59] LABS: ALANINE AMINOTRANSFERASE 212 U/L (12-78); ALBUMIN/GLOBULIN RATIO 0.5 (1.0-2.7); ALKALINE PHOSPHATASE 510 U/L (46-116); ANION GAP 4 mmol/L (5-15); ASPARTATE AMINO TRANSFERASE 598 U/L (15-37); BILIRUBIN,TOTAL 1.8 MG/DL (0.2-1.0); BLOOD UREA NITROGEN 54 mg/dL (7-18); CALCIUM 7.7 MG/DL (8.5-10.1); CARBON DIOXIDE 33 MMOL/L (21-32); CHLORIDE 91 MMOL/L (98-107); CREATININE 0.8 MG/DL (0.55-1.30); POTASSIUM 3.8 MMOL/L (3.5-5.1); SODIUM 128 MMOL/L (136-145)
[2020-04-05 06:18] LABS: BILIRUBIN,DIRECT 0.9 MG/DL (0.0-0.3)
--- NOTE | 2020-04-05 08:15 | General Progress Note ---
Assessment/Plan Problem List: (1) Hypothyroid ICD Codes: E03.9 - Hypothyroidism, unspecified SNOMED: 37753824 (2) COVID-19 ICD Codes: U07.1 - COVID-19 SNOMED: 385213873 (3) Respiratory failure with hypoxia ICD Codes: J96.91 - Respiratory failure, unspecified with hypoxia SNOMED: 43938123383273755 Qualifiers: Qualified Codes: J96.01 - Acute respiratory failure with hypoxia (4) Cellulitis ICD Codes: L03.90 - Cellulitis, unspecified SNOMED: 907599763 Qualifiers: Qualified Codes: L03.119 - Cellulitis of unspecified part of limb (5) Hyperglycemia ICD Codes: R73.9 - Hyperglycemia, unspecified SNOMED: 99486890 Status: progressing, unchanged Assessment/Plan: no need for basal insulin continue Novolog sliding scale every 6 hours TSH normalized continue Levothyroxine 50 mcg IV every other day Subjective ROS Limited/Unobtainable: Yes Allergies: Coded Allergies: No Known Allergies (Unverified , 02/29/20) Subjective events noted - interval notes reviewed intubated in ICU glucose values are stable Item Value Date Time Bedside Blood Glucose 142 mg/dl H 04/05/20 0533 Bedside Blood Glucose 168 mg/dl H 04/05/20 0002 Bedside Blood Glucose 164 mg/dl H 04/04/20 1730 Bedside Blood Glucose 162 mg/dl H 04/04/20 1158 Bedside Blood Glucose 158 mg/dl H 04/04/20 0504 Objective Last 24 Hour Vital Signs Date Time Temp Pulse Resp B/P (MAP) Pulse Ox O2 Delivery O2 Flow Rate FiO2 04/05/20 07:10 86 24 100 04/05/20 07:00 101/42 04/05/20 07:00 101/42 04/05/20 07:00 86 24 100/45 (63) 90 04/05/20 06:45 86 24 93/51 (65) 91 04/05/20 06:30 85 24 78/38 (51) 87 04/05/20 06:15 85 24 99/44 (62) 89 04/05/20 06:00 84 24 102/51 (68) 89 04/05/20 06:00 102/48 04/05/20 06:00 102/48 04/05/20 05:33 56/29 04/05/20 05:30 85 24 113/51 (71) 93 04/05/20 05:00 85 24 100/35 (56) 91 04/05/20 05:00 98/39 04/05/20 05:00 98/39 04/05/20 04:30 86 24 94/48 (63) 92 04/05/20 04:00 Mechanical Ventilator Mechanical Ventilator 04/05/20 04:00 98.3 86 24 89/41 (57) 90 04/05/20 04:00 87 04/05/20 04:00 96/49 04/05/20 04:00 96/49 04/05/20 04:00 100 04/05/20 03:30 86 24 96/44 (61) 90 04/05/20 03:00 85 24 89/48 (62) 80 04/05/20 02:59 56/29 04/05/20 02:31 98 24 100 04/05/20 02:30 85 24 102/50 (67) 89 04/05/20 02:00 84 24 56/29 (38) 88 04/05/20 02:00 101/56 04/05/20 01:15 87 32 101/48 (65) 89 04/05/20 01:00 87 32 101/35 (57) 88 04/05/20 01:00 109/52 04/05/20 01:00 109/52 04/05/20 00:45 88 29 114/54 (74) 85 04/05/20 00:43 107/41 04/05/20 00:30 88 32 109/48 (68) 89 04/05/20 00:15 89 30 107/41 (63) 90 04/05/20 00:00 102 04/05/20 00:00 Mechanical Ventilator Mechanical Ventilator 04/05/20 00:00 104/46 04/05/20 00:00 99.2 89 34 105/44 (64) 89 04/04/20 23:45 89 31 108/29 (55) 92 04/04/20 23:30 88 30 76/38 (51) 91 04/04/20 23:00 90 29 109/44 (65) 91 04/04/20 23:00 104/46 04/04/20 23:00 85/43 04/04/20 22:56 91 24 50 5/19/20 22:30 90 33 104/46 (65) 92 5/19/20 22:15 90 30 102/60 (74) 91 5/19/20 22:00 91 34 99/55 (70) 88 5/19/20 22:00 90/59 5/19/20 22:00 90/59 5/19/20 21:30 91 27 79/45 (56) 90 5/19/20 21:15 92 26 82/49 (60) 94 5/19/20 21:00 92 30 85/30 (48) 96 5/19/20 21:00 82/53 5/19/20 21:00 82/49 5/19/20 20:45 93 32 87/49 (62) 93 5/19/20 20:30 92 27 90/50 (63) 94 5/19/20 20:26 83/47 5/19/20 20:26 83/47 519/20 20:19 93 24 83/47 (59) 86 5/19/20 20:15 93 18 72/30 (44) 88 519/20 20:00 Mechanical Ventilator Mechanical Ventilator 20 20:00 93 5/19/20 20:00 80 5/19/20 20:00 85/56 519/20 20:00 85/56 519/20 20:00 101.0 93 26 85/56 (66) 95 5/19/20 19:15 93 24 98/42 (60) 95 5/19/20 19:10 97 24 50 519/20 19:00 93 24 88/51 (63) 96 519/20 19:00 93/50 5/19/20 19:00 93/50 5/19/20 18:30 94 24 95/55 (68) 96 5/19/20 18:00 89/56 519/20 18:00 89/56 519/20 18:00 94 26 96/57 (70) 96 519/20 17:30 94 29 98/53 (68) 95 5/19/20 17:22 90/41 5/19/20 17:11 94 24 91 Mechanical Ventilator 50 5/20 17:00 94 25 93/53 (66) 95 519/20 17:00 97/44 5/19/20 17:00 97/44 04/04/20 16:30 96 24 102/48 (66) 93 04/04/20 16:00 99.0 96 24 106/42 (63) 93 04/04/20 16:00 104/51 04/04/20 16:00 104/51 04/04/20 16:00 Mechanical Ventilator Mechanical Ventilator 04/04/20 16:00 96 04/04/20 16:00 50 04/04/20 15:30 95 24 73/27 (42) 92 04/04/20 15:02 89 24 50 04/04/20 15:00 96 24 107/41 (63) 95 04/04/20 15:00 107/41 04/04/20 15:00 90/41 04/04/20 15:00 107/41 04/04/20 14:30 86 24 55/33 (40) 84 04/04/20 14:00 94 24 90/32 (51) 90 04/04/20 14:00 97/34 04/04/20 14:00 97/34 04/04/20 13:30 94 24 105/31 (55) 91 04/04/20 13:00 105/41 04/04/20 13:00 105/41 04/04/20 13:00 90/32 04/04/20 13:00 95 24 99/43 (61) 91 04/04/20 12:00 Mechanical Ventilator Mechanical Ventilator 04/04/20 12:00 98.6 94 25 108/43 (64) 93 04/04/20 12:00 94 04/04/20 12:00 109/31 04/04/20 12:00 109/31 04/04/20 12:00 50 04/04/20 11:30 94 24 107/49 (68) 92 04/04/20 11:02 94 24 50 04/04/20 11:00 104/43 04/04/20 11:00 104/43 04/04/20 11:00 94 24 99/46 (63) 91 04/04/20 10:00 95 24 105/40 (61) 91 04/04/20 10:00 107/35 04/04/20 10:00 107/35 04/04/20 09:30 95 24 105/34 (57) 91 04/04/20 09:08 107/39 04/04/20 09:07 107/39 04/04/20 09:00 100/45 04/04/20 09:00 95 26 111/38 (62) 91 04/04/20 08:30 96 24 115/51 (72) 92 Intake and Output 04/04/20 04/05/20 19:00 07:00 Intake Total 2208.075 ml 1731.183 ml Output Total 390 ml 180 ml Balance 1818.075 ml 1551.183 ml IV Total 2208.075 ml 1731.183 ml Tube Feeding 0 ml 0 ml Output Urine Total 390 ml 180 ml # Bowel Movements 1 Laboratory Tests 04/05/20 03:15: White Blood Count 12.3H, Red Blood Count 2.48L, Hemoglobin 9.1L, Hematocrit 26.3L, Mean Corpuscular Volume 106H, Mean Corpuscular Hemoglobin 36.5H, Mean Corpuscular Hemoglobin Concent 34.5, Red Cell Distribution Width 21.7H, Platelet Count 109L, Mean Platelet Volume 8.6, Neutrophils (%) (Auto) , Lymphocytes (%) (Auto) , Monocytes (%) (Auto) , Eosinophils (%) (Auto) , Basophils (%) (Auto) , Sodium Level 128L, Potassium Level 3.8, Chloride Level 91L, Carbon Dioxide Level 33H, Anion Gap 4L, Blood Urea Nitrogen 54H, Creatinine 0.8, Estimat Glomerular Filtration Rate > 60, Glucose Level 146H, Calcium Level 7.7L, Total Bilirubin 1.8H, Direct Bilirubin 0.9H, Aspartate Amino Transf (AST/SGOT) 598H, Alanine Aminotransferase (ALT/SGPT) 212H, Alkaline Phosphatase 510H, Ammonia 117H, Total Protein 5.9L, Albumin 2.0L, Globulin 3.9, Albumin/Globulin Ratio 0.5L Height (Feet): 5 Height (Inches): 1.00 Weight (Pounds): 228 General Appearance: other - on vent Neck: normal alignment Cardiovascular: tachycardia Respiratory/Chest: decreased breath sounds Abdomen: normal bowel sounds Objective Current Medications Medications (Trade) Dose Ordered Sig/Dolores Route PRN Reason Start Time Stop Time Status Last Admin Dose Admin Acetaminophen (Tylenol) 650 mg Q4H PRN NG Temp >100.5 04/01/20 22:00 05/01/20 21:59 Acetaminophen (Tylenol) 650 mg Q4H PRN ORAL Mild Pain (Pain Scale 1-3) 03/13/20 14:53 04/12/20 14:52 04/01/20 21:26 Allopurinol (allopurinoL) 300 mg DAILY NG 04/04/20 10:32 05/04/20 10:31 04/04/20 11:39 Chlorhexidine Gluconate (Lucretia-Hex 2%) 1 applic DAILY@2000 TOPIC 03/13/20 20:00 06/11/20 19:59 04/04/20 20:13 Dextrose (Dextrose 50%) 25 ml Q30M PRN IV Hypoglycemia 04/03/20 00:00 07/02/20 00:00 Dextrose (Dextrose 50%) 50 ml Q30M PRN IV Hypoglycemia 04/03/20 00:00 07/02/20 00:00 Dopamine HCl/ Dextrose 250 ml @ 0 mls/hr Q24H IV 03/16/20 19:30 06/14/20 19:29 04/05/20 05:33 Fluconazole (Diflucan) 200 mg DAILY NG 03/31/20 11:00 04/07/20 10:59 04/04/20 09:06 Hydralazine HCl (Apresoline) 10 mg Q6H PRN IV For High Blood Pressure 03/24/20 16:45 06/22/20 16:44 Insulin Aspart (NovoLOG) Q6HR SUBQ 04/03/20 00:00 07/02/20 00:00 04/05/20 05:33 Lactulose (Cephulac) 40 gm Q8HR ORAL 04/01/20 14:00 04/30/20 17:59 04/05/20 05:17 Levothyroxine Sodium (Synthroid) 50 mcg QOD IV 04/05/20 09:00 04/17/20 11:59 Meropenem 1 gm/ Sodium Chloride 55 ml @ 110 mls/hr Q8HR IVPB 03/29/20 14:00 04/07/20 13:59 04/05/20 05:17 Metoclopramide HCl (Reglan) 10 mg EVERY 6 HOURS IVP 04/04/20 12:00 05/04/20 11:59 04/05/20 05:17 Midodrine (Pro-Amatine) 10 mg THREE TIMES A DAY NG 03/27/20 09:00 06/20/20 12:29 04/04/20 17:22 Norepinephrine Bitartrate 16 mg/ Dextrose 566 ml @ 0 mls/hr Q24H IV 04/04/20 23:00 05/04/20 22:59 04/05/20 00:43 Sodium Chloride 500 ml @ 30 mls/hr ONCE ONCE IV 04/05/20 08:30 04/06/20 01:09 Vancomycin HCl (Vanco rx to dose) 1 ea DAILY PRN MISC Per rx protocol 04/02/20 11:00 05/02/20 10:59 Vancomycin HCl 500 mg/Sodium Chloride 110 ml @ 110 mls/hr Q12HR@0600,1800 IVPB 04/02/20 18:00 04/07/20 17:59 04/05/20 05:17 Vasopressin 100 units/Sodium Chloride 100 ml @ 0 mls/hr Q24H PRN IV For hypotension 03/16/20 11:00 04/15/20 10:59 04/04/20 21:31 Johan Christopher MD April 05, 2020 08:15
[2020-04-05] MEDS: Midodrine 10mg tab NG SCH ×3 (08:21→18:00)
[2020-04-05] MEDS: Fluconazole 100mg tab NG SCH (08:21)
[2020-04-05] MEDS ORDERED: NaCl 3% 500ml 500 ML IV ONE (08:30)
--- NOTE | 2020-04-05 09:21 | Diagnostic Imaging Report ---
EXAM: XRAY Abdomen 1v HISTORY: Abdominal distention. COMPARISON: None. TECHNIQUE: Frontal view of the abdomen obtained. FINDINGS: There is an NG tube in place. There is paucity of bowel gas throughout the abdomen. Surgical clips noted in the right upper quadrant. There is no sign of free air. Degenerative changes lower lumbar spine. IMPRESSION: NONSPECIFIC PATTERN WITH ESSENTIALLY GASLESS ABDOMEN.
--- NOTE | 2020-04-05 09:24 | Hematology/Onc Progress Note ---
Assessment/Plan Assessment/Plan Assessment and Recs # Pancytopenia -- multiple etiologies could be related to underlying liver disease, medication-induced, infection versus viral syndrome versus underlying bone marrow cause, in this case, has severe liver disease and cirrhosis, HEP C++ , also cellulitis, COVID19++ --> peripheral smear has been ordered and does not show significant abnormalities and none noted --> Medications have been reviewed --> Continue to monitor for improvement, trend cbc --> Hep panel and HIV are both negative --> US abd ordered to r/o cirrhosis and hepatosplenomegaly ->CIRRHOSIS IS NOTED , LARGE SPLEEN --> reverse isolation if ANC is <2000 --> Give neupogen if ANC <1000 --> Transfuse if hgb <7, with 1 unit prbc --> anemia panel ordered as well-->CW acd --> hgb trend 7-->7.1-->8.4-->8.2 -->8.7-->9.9-->9.2-->9.5-->9.1-->10.1 -->9--> 8.9 --> plt 145k-->152-->162k-->149k-->121k-->171k-->149-->163-->135-->100 --> wbc 3.4-->3.5->3.9->4.4-->11-->10.8 -->15->23-->26-->27-->26.7 -->14.3 --> abx: sameer/rifaximin-->levaquin /vanc-->sameer/vanc # Leukocytosis with Cellulitis of the lower extremities --> continue abx as needed as per id --> Started on IV antibiotics-->azithro/cefepime-->levaquin-->sameer --> as per surg recs, wound care --> on steriods at this time, likely contributor # Ftt --> remains on mirtazapine --> daily weights # Elevated LFTS --> as per gi --> due to cirrhosis # Respiratory failure --> s/p intubation 03/16 --> prone positioning as needed by pulm # Dvt ppx lovenox sq # Prognosis is poor The timing of this note does not necessarily reflect the time of the patient was seen. Greatly appreciate consultation. Subjective Allergies: Coded Allergies: No Known Allergies (Unverified , 02/29/20) Subjective 03/02 no events, no bleeding, hgb 7.1, no hemolysis 03/03 s/p blood, hgb improved to 8.4, stool ob negtive, on abx 03/05 asleep, no acute distress, hgb 8.2 03/06 remains comfortable, on abx, plt remains low 03/07 is on nonrebreather, no night sweats, labs are noted 03/08 labs reviewed, being diuresed, seen by cards, psych, labs noted 03/09 lasix adjusted, wbc remains low at 3.9, reviewed meds, smear 03/10 no night sweats, no bleeding, labs noted, smear noted 03/12 labs noted, none completed, have reordered, cellulitis better 03/13 is continuing with chest pain, cards aware, no further studies until covid neg 03/14 labs noted, no bleeding, diuresis as needed, hgb stable 03/15 alseep is cooperative, no bleeding, meds noted 03/16 no bleeding or chills, hgb 10.8, no night sweats, no major events 03/17 now intubated, no bleeding, labs noted, dw rn 03/19 remains intubated, no bleeding, labs noted, on pressors 03/20 prone posiition, seen by gi and renal, nob leeding, hgb 10.1 03/21 sedated, remains agitated, pulling on 2p restraints, no bleeding 03/22 icu, h/h stable, finished plaq/zithro, no acute distress 03/23 in icu, remains restless no bleeding, labs noted, no bleeding 03/24 in icu, poor prognosis, no night sweats, no fc 03/26 on vent, unresponsive, no bleeding, wbc high is on abx and steriods 03/27 remains on vent, ngt, no bleeding, already on abx on steriods 03/28 labs noted, no bleeding, wbc 23k, hgb 9, still with ongoing leukocytosis, ngt feeds 03/29 icu, started on sameer, steroids being tapered, wbc 26.4, no sob 03/30 no major changes, in icu, resp distress, on vent, wbc remains elevated 03/31 picc intact, wbc 26, amonia 104, no sob, continues on steroids 04/02 icu, nonverbal, vent, no distress 04/03 remains comotose is on vent, and pressors, no bleeding, dw rn in icu 04/04 no new changes, no acute distress 04/05 no overnight events, nonverbal, labs reviewed Objective Objective Current Medications Medications (Trade) Dose Ordered Sig/Dolores Route PRN Reason Start Time Stop Time Status Last Admin Dose Admin Acetaminophen (Tylenol) 650 mg Q4H PRN NG Temp >100.5 04/01/20 22:00 05/01/20 21:59 Acetaminophen (Tylenol) 650 mg Q4H PRN ORAL Mild Pain (Pain Scale 1-3) 03/13/20 14:53 04/12/20 14:52 04/01/20 21:26 Allopurinol (allopurinoL) 300 mg DAILY NG 04/04/20 10:32 05/04/20 10:31 04/05/20 08:21 Chlorhexidine Gluconate (Lucretia-Hex 2%) 1 applic DAILY@2000 TOPIC 03/13/20 20:00 06/11/20 19:59 04/04/20 20:13 Dextrose (Dextrose 50%) 25 ml Q30M PRN IV Hypoglycemia 04/03/20 00:00 07/02/20 00:00 Dextrose (Dextrose 50%) 50 ml Q30M PRN IV Hypoglycemia 04/03/20 00:00 07/02/20 00:00 Dopamine HCl/ Dextrose 250 ml @ 0 mls/hr Q24H IV 03/16/20 19:30 06/14/20 19:29 04/05/20 08:22 Fluconazole (Diflucan) 200 mg DAILY NG 03/31/20 11:00 04/07/20 10:59 04/05/20 08:21 Hydralazine HCl (Apresoline) 10 mg Q6H PRN IV For High Blood Pressure 03/24/20 16:45 06/22/20 16:44 Insulin Aspart (NovoLOG) Q6HR SUBQ 04/03/20 00:00 07/02/20 00:00 04/05/20 05:33 Lactulose (Cephulac) 40 gm Q8HR ORAL 04/01/20 14:00 04/30/20 17:59 04/05/20 05:17 Levothyroxine Sodium (Synthroid) 50 mcg QOD IV 04/05/20 09:00 04/17/20 11:59 Meropenem 1 gm/ Sodium Chloride 55 ml @ 110 mls/hr Q8HR IVPB 03/29/20 14:00 04/07/20 13:59 04/05/20 05:17 Metoclopramide HCl (Reglan) 10 mg EVERY 6 HOURS IVP 04/04/20 12:00 05/04/20 11:59 04/05/20 05:17 Midodrine (Pro-Amatine) 10 mg THREE TIMES A DAY NG 03/27/20 09:00 06/20/20 12:29 04/05/20 08:21 Norepinephrine Bitartrate 16 mg/ Dextrose 566 ml @ 0 mls/hr Q24H IV 04/04/20 23:00 05/04/20 22:59 04/05/20 00:43 Sodium Chloride 500 ml @ 30 mls/hr ONCE ONCE IV 04/05/20 08:30 04/06/20 01:09 Vancomycin HCl (Vanco rx to dose) 1 ea DAILY PRN MISC Per rx protocol 04/02/20 11:00 05/02/20 10:59 Vancomycin HCl 500 mg/Sodium Chloride 110 ml @ 110 mls/hr Q12HR@0600,1800 IVPB 04/02/20 18:00 04/07/20 17:59 04/05/20 05:17 Vasopressin 100 units/Sodium Chloride 100 ml @ 0 mls/hr Q24H PRN IV For hypotension 03/16/20 11:00 04/15/20 10:59 04/04/20 21:31 Last 24 Hour Vital Signs Date Time Temp Pulse Resp B/P (MAP) Pulse Ox O2 Delivery O2 Flow Rate FiO2 04/05/20 08:22 101/42 04/05/20 07:10 86 24 100 04/05/20 07:00 101/42 04/05/20 07:00 101/42 04/05/20 07:00 86 24 100/45 (63) 90 5/20/20 06:45 86 24 93/51 (65) 91 04/05/20 06:30 85 24 78/38 (51) 87 04/05/20 06:15 85 24 99/44 (62) 89 04/05/20 06:00 84 24 102/51 (68) 89 20 06:00 102/48 520 06:00 102/48 04/05/20 05:33 56/29 5 05:30 85 24 113/51 (71) 93 04/05/20 05:00 85 24 100/35 (56) 91 04/05/20 05:00 98/39 5 05:00 98/39 04/05/20 04:30 86 24 94/48 (63) 92 04/05/20 04:00 Mechanical Ventilator Mechanical Ventilator 04/05/20 04:00 98.3 86 24 89/41 (57) 90 04/05/20 04:00 87 04/05/20 04:00 96/49 04/05/20 04:00 96/49 04/05/20 04:00 100 04/05/20 03:30 86 24 96/44 (61) 90 04/05/20 03:00 85 24 89/48 (62) 80 04/05/20 02:59 56/29 04/05/20 02:31 98 24 100 04/05/20 02:30 85 24 102/50 (67) 89 04/05/20 02:00 84 24 56/29 (38) 88 04/05/20 02:00 101/56 04/05/20 01:15 87 32 101/48 (65) 89 04/05/20 01:00 87 32 101/35 (57) 88 20 01:00 109/52 20 01:00 109/52 20 00:45 88 29 114/54 (74) 85 20 00:43 107/41 5 00:30 88 32 109/48 (68) 89 20 00:15 89 30 107/41 (63) 90 04/05/20 00:00 102 04/05/20 00:00 Mechanical Ventilator Mechanical Ventilator 04/05/20 00:00 104/46 04/05/20 00:00 99.2 89 34 105/44 (64) 89 5/19/20 23:45 89 31 108/29 (55) 92 5/19/20 23:30 88 30 76/38 (51) 91 5/19/20 23:00 90 29 109/44 (65) 91 5/19/20 23:00 104/46 5/19/20 23:00 85/43 5/19/20 22:56 91 24 50 5/19/20 22:30 90 33 104/46 (65) 92 5/19/20 22:15 90 30 102/60 (74) 91 5/19/20 22:00 91 34 99/55 (70) 88 5/19/20 22:00 90/59 5/19/20 22:00 90/59 5/19/20 21:30 91 27 79/45 (56) 90 5/19/20 21:15 92 26 82/49 (60) 94 5/19/20 21:00 92 30 85/30 (48) 96 5/19/20 21:00 82/53 5/19/20 21:00 82/49 5/19/20 20:45 93 32 87/49 (62) 93 5/19/20 20:30 92 27 90/50 (63) 94 5/19/20 20:26 83/47 5/19/20 20:26 83/47 5/19/20 20:19 93 24 83/47 (59) 86 5/19/20 20:15 93 18 72/30 (44) 88 5/19/20 20:00 Mechanical Ventilator Mechanical Ventilator 519/20 20:00 93 5/19/20 20:00 80 5/19/20 20:00 85/56 5/19/20 20:00 85/56 5/19/20 20:00 101.0 93 26 85/56 (66) 95 5/19/20 19:15 93 24 98/42 (60) 95 5/19/20 19:10 97 24 50 5/19/20 19:00 93 24 88/51 (63) 96 5/19/20 19:00 93/50 5/19/20 19:00 93/50 5/19/20 18:30 94 24 95/55 (68) 96 5/19/20 18:00 89/56 5/19/20 18:00 89/56 04/04/20 18:00 94 26 96/57 (70) 96 04/04/20 17:30 94 29 98/53 (68) 95 04/04/20 17:22 90/41 04/04/20 17:11 94 24 91 Mechanical Ventilator 50 04/04/20 17:00 94 25 93/53 (66) 95 04/04/20 17:00 97/44 04/04/20 17:00 97/44 04/04/20 16:30 96 24 102/48 (66) 93 04/04/20 16:00 99.0 96 24 106/42 (63) 93 04/04/20 16:00 104/51 04/04/20 16:00 104/51 04/04/20 16:00 Mechanical Ventilator Mechanical Ventilator 04/04/20 16:00 96 04/04/20 16:00 50 04/04/20 15:30 95 24 73/27 (42) 92 04/04/20 15:02 89 24 50 04/04/20 15:00 96 24 107/41 (63) 95 04/04/20 15:00 107/41 04/04/20 15:00 90/41 04/04/20 15:00 107/41 04/04/20 14:30 86 24 55/33 (40) 84 04/04/20 14:00 94 24 90/32 (51) 90 04/04/20 14:00 97/34 04/04/20 14:00 97/34 04/04/20 13:30 94 24 105/31 (55) 91 04/04/20 13:00 105/41 04/04/20 13:00 105/41 04/04/20 13:00 90/32 04/04/20 13:00 95 24 99/43 (61) 91 04/04/20 12:00 Mechanical Ventilator Mechanical Ventilator 04/04/20 12:00 98.6 94 25 108/43 (64) 93 04/04/20 12:00 94 04/04/20 12:00 109/31 04/04/20 12:00 109/31 04/04/20 12:00 50 04/04/20 11:30 94 24 107/49 (68) 92 04/04/20 11:02 94 24 50 04/04/20 11:00 104/43 04/04/20 11:00 104/43 04/04/20 11:00 94 24 99/46 (63) 91 04/04/20 10:00 95 24 105/40 (61) 91 04/04/20 10:00 107/35 04/04/20 10:00 107/35 04/04/20 09:30 95 24 105/34 (57) 91 04/04/20 09:08 107/39 04/04/20 09:07 107/39 04/04/20 09:00 100/45 04/04/20 09:00 95 26 111/38 (62) 91 04/04/20 08:30 96 24 115/51 (72) 92 04/04/20 08:00 93 04/04/20 08:00 50 04/04/20 08:00 Mechanical Ventilator Mechanical Ventilator 04/04/20 08:00 126/39 04/04/20 08:00 126/39 04/04/20 08:00 98.7 90 24 129/55 (79) 88 04/04/20 07:00 107/39 04/04/20 07:00 107/39 04/04/20 07:00 93 25 107/39 (61) 92 04/04/20 06:58 93 24 50 04/04/20 06:45 93 24 107/40 (62) 92 04/04/20 06:45 107/40 04/04/20 06:45 107/40 04/04/20 06:30 92 25 110/36 (60) 91 04/04/20 06:15 91 26 111/32 (58) 92 04/04/20 06:00 111/32 04/04/20 06:00 111/32 04/04/20 06:00 90 25 114/45 (68) 92 04/04/20 05:30 111/45 04/04/20 05:15 89 25 112/40 (64) 94 04/04/20 05:15 114/41 04/04/20 05:03 114/40 04/04/20 05:00 112/40 04/04/20 05:00 112/40 04/04/20 05:00 89 24 114/40 (64) 94 04/04/20 04:45 114/40 5/19/20 04:45 114/40 04/04/20 04:45 88 24 132/47 (75) 95 04/04/20 04:30 95/38 04/04/20 04:30 95/38 04/04/20 04:30 87 24 95/38 (57) 94 04/04/20 04:15 109/40 04/04/20 04:15 109/40 04/04/20 04:15 87 24 109/40 (63) 94 04/04/20 04:00 50 04/04/20 04:00 103/59 04/04/20 04:00 103/59 04/04/20 04:00 98.7 88 25 103/59 (74) 92 04/04/20 04:00 Mechanical Ventilator Mechanical Ventilator 04/04/20 04:00 87 04/04/20 03:45 81/62 04/04/20 03:45 81/62 04/04/20 03:30 88 24 50 04/04/20 03:00 106/56 04/04/20 03:00 106/56 04/04/20 03:00 86 24 106/56 (73) 92 04/04/20 02:00 105/59 04/04/20 02:00 105/59 04/04/20 02:00 86 24 105/59 (74) 91 04/04/20 01:00 86 24 108/58 (75) 91 04/04/20 01:00 107/58 04/04/20 01:00 107/58 04/04/20 00:00 117/68 04/04/20 00:00 117/68 04/04/20 00:00 50 04/04/20 00:00 98.8 85 24 102/55 (71) 90 04/04/20 00:00 86 04/04/20 00:00 Mechanical Ventilator Mechanical Ventilator 04/03/20 23:47 109/56 04/03/20 23:46 109/56 04/03/20 23:15 86 24 105/57 (73) 91 04/03/20 23:15 109/56 04/03/20 23:05 86 24 50 04/03/20 23:00 86 24 107/60 (76) 92 04/03/20 23:00 105/57 04/03/20 23:00 105/57 5/18/20 22:45 102/55 5/18/20 22:45 102/55 5/18/20 22:30 86 24 106/57 (73) 92 518/20 22:30 108/58 5/18/20 22:30 108/58 518/20 22:15 86 24 114/56 (75) 92 20 22:15 106/57 518/20 22:15 106/57 51820 22:00 124/59 518/20 22:00 124/59 51820 22:00 85 24 88/48 (61) 91 20 21:45 88/48 51820 21:45 88/48 520 21:00 103/55 520 21:00 103/55 520 21:00 85 24 103/55 (71) 91 20 20:00 100 520 20:00 98.7 84 24 102/57 (72) 92 20 20:00 Mechanical Ventilator Mechanical Ventilator 04/03/20 20:00 102/57 51820 20:00 102/57 520 20:00 84 1820 19:30 85 24 101/55 (70) 92 20 19:00 85 24 50 520 19:00 86 24 104/62 (76) 92 20 18:45 96/53 518/20 18:35 96/53 520 18:30 85 24 101/52 (68) 91 20 18:00 85 24 99/51 (67) 92 18/20 17:30 85 24 95/52 (66) 91 20 17:00 85 24 98/48 (65) 91 20 16:30 85 24 100/53 (69) 91 20 16:00 86 20 16:00 Mechanical Ventilator Mechanical Ventilator 04/03/20 16:00 50 20 16:00 98.8 85 24 99/53 (68) 92 20 15:30 86 24 97/53 (68) 92 20 15:03 88 24 50 5/18/20 15:00 86 24 95/53 (67) 93 04/03/20 14:30 87 24 94/49 (64) 94 04/03/20 14:08 100/54 04/03/20 14:00 89 25 100/51 (67) 90 04/03/20 13:30 88 24 168/73 (104) 94 04/03/20 13:17 108/54 04/03/20 13:00 88 24 108/54 (72) 93 04/03/20 12:30 88 24 111/56 (74) 93 04/03/20 12:00 50 04/03/20 12:00 98.8 88 24 108/49 (68) 92 04/03/20 12:00 88 04/03/20 12:00 Mechanical Ventilator Mechanical Ventilator 04/03/20 11:31 88 24 50 04/03/20 11:30 88 24 116/56 (76) 98 04/03/20 11:00 89 25 111/56 (74) 98 04/03/20 10:30 89 24 107/55 (72) 99 04/03/20 10:00 89 24 129/70 (89) 98 04/03/20 09:30 81 24 97/47 (64) 98 Intake and Output 04/04/20 04/05/20 19:00 07:00 Intake Total 2208.075 ml 1731.183 ml Output Total 390 ml 180 ml Balance 1818.075 ml 1551.183 ml IV Total 2208.075 ml 1731.183 ml Tube Feeding 0 ml 0 ml Output Urine Total 390 ml 180 ml # Bowel Movements 1 Labs Test 04/03/20 03:30 04/03/20 21:00 04/04/20 03:35 04/05/20 03:15 White Blood Count 19.0 K/UL (4.8-10.8) 14.3 K/UL (4.8-10.8) 12.3 K/UL (4.8-10.8) Red Blood Count 2.35 M/UL (4.20-5.40) 2.43 M/UL (4.20-5.40) 2.48 M/UL (4.20-5.40) Hemoglobin 8.7 G/DL (12.0-16.0) 8.9 G/DL (12.0-16.0) 9.1 G/DL (12.0-16.0) Hematocrit 25.4 % (37.0-47.0) 25.8 % (37.0-47.0) 26.3 % (37.0-47.0) Mean Corpuscular Volume 108 FL (80-99) 106 FL (80-99) 106 FL (80-99) Mean Corpuscular Hemoglobin 36.9 PG (27.0-31.0) 36.5 PG (27.0-31.0) 36.5 PG (27.0-31.0) Mean Corpuscular Hemoglobin Concent 34.3 G/DL (32.0-36.0) 34.4 G/DL (32.0-36.0) 34.5 G/DL (32.0-36.0) Red Cell Distribution Width 24.6 % (11.6-14.8) 22.9 % (11.6-14.8) 21.7 % (11.6-14.8) Platelet Count 97 K/UL (150-450) 100 K/UL (150-450) 109 K/UL (150-450) Mean Platelet Volume 8.9 FL (6.5-10.1) 8.2 FL (6.5-10.1) 8.6 FL (6.5-10.1) Neutrophils (%) (Auto) % (45.0-75.0) 84.2 % (45.0-75.0) % (45.0-75.0) Lymphocytes (%) (Auto) % (20.0-45.0) 8.0 % (20.0-45.0) % (20.0-45.0) Monocytes (%) (Auto) % (1.0-10.0) 3.1 % (1.0-10.0) % (1.0-10.0) Eosinophils (%) (Auto) % (0.0-3.0) 4.5 % (0.0-3.0) % (0.0-3.0) Basophils (%) (Auto) % (0.0-2.0) 0.2 % (0.0-2.0) % (0.0-2.0) Differential Total Cells Counted 100 Neutrophils % (Manual) 81 % (45-75) Lymphocytes % (Manual) 11 % (20-45) Monocytes % (Manual) 6 % (1-10) Eosinophils % (Manual) 2 % (0-3) Basophils % (Manual) 0 % (0-2) Band Neutrophils 0 % (0-8) Platelet Estimate Decreased Platelet Morphology Normal Polychromasia 1+ Hypochromasia 1+ Anisocytosis 2+ Macrocytosis 1+ Sodium Level 133 MMOL/L (136-145) 132 MMOL/L (136-145) 128 MMOL/L (136-145) Potassium Level 3.9 MMOL/L (3.5-5.1) 3.6 MMOL/L (3.5-5.1) 3.8 MMOL/L (3.5-5.1) Chloride Level 93 MMOL/L (98-107) 94 MMOL/L (98-107) 91 MMOL/L (98-107) Carbon Dioxide Level 36 MMOL/L (21-32) 37 MMOL/L (21-32) 33 MMOL/L (21-32) Anion Gap 4 mmol/L (5-15) 2 mmol/L (5-15) 4 mmol/L (5-15) Blood Urea Nitrogen 62 mg/dL (7-18) 56 mg/dL (7-18) 54 mg/dL (7-18) Creatinine 0.7 MG/DL (0.55-1.30) 0.6 MG/DL (0.55-1.30) 0.8 MG/DL (0.55-1.30) Estimat Glomerular Filtration Rate > 60 mL/min (>60) > 60 mL/min (>60) > 60 mL/min (>60) Glucose Level 90 MG/DL (74-106) 140 MG/DL (74-106) 146 MG/DL (74-106) Hemoglobin A1c 5.5 % (4.3-6.0) Uric Acid 8.9 MG/DL (2.6-7.2) 10.3 MG/DL (2.6-7.2) Calcium Level 8.3 MG/DL (8.5-10.1) 8.5 MG/DL (8.5-10.1) 7.7 MG/DL (8.5-10.1) Phosphorus Level 4.6 MG/DL (2.5-4.9) 4.5 MG/DL (2.5-4.9) Magnesium Level 2.7 MG/DL (1.8-2.4) 2.5 MG/DL (1.8-2.4) Total Bilirubin 2.3 MG/DL (0.2-1.0) 2.1 MG/DL (0.2-1.0) 1.8 MG/DL (0.2-1.0) Direct Bilirubin 1.2 MG/DL (0.0-0.3) 0.9 MG/DL (0.0-0.3) 0.9 MG/DL (0.0-0.3) Aspartate Amino Transf (AST/SGOT) 750 U/L (15-37) 662 U/L (15-37) 598 U/L (15-37) Alanine Aminotransferase (ALT/SGPT) 267 U/L (12-78) 227 U/L (12-78) 212 U/L (12-78) Alkaline Phosphatase 411 U/L (46-116) 463 U/L (46-116) 510 U/L (46-116) C-Reactive Protein, Quantitative 1.8 mg/dL (0.00-0.90) 2.9 mg/dL (0.00-0.90) Pro-B-Type Natriuretic Peptide 2229 pg/mL (0-125) 1948 pg/mL (0-125) Total Protein 6.2 G/DL (6.4-8.2) 5.9 G/DL (6.4-8.2) 5.9 G/DL (6.4-8.2) Albumin 2.4 G/DL (3.4-5.0) 2.2 G/DL (3.4-5.0) 2.0 G/DL (3.4-5.0) Globulin 3.8 g/dL 3.7 g/dL 3.9 g/dL Albumin/Globulin Ratio 0.6 (1.0-2.7) 0.6 (1.0-2.7) 0.5 (1.0-2.7) Thyroid Stimulating Hormone (TSH) 0.450 uiU/mL (0.358-3.740) Urine Color Yellow Urine Appearance Clear Urine pH 5 (4.5-8.0) Urine Specific [place] 1.015 (1.005-1.035) Urine Protein Negative (NEGATIVE) Urine Glucose (UA) Negative (NEGATIVE) Urine Ketones 1+ (NEGATIVE) Urine Blood 1+ (NEGATIVE) Urine Nitrite Negative (NEGATIVE) Urine Bilirubin Negative (NEGATIVE) Urine Urobilinogen Normal MG/DL (0.0-1.0) Urine Leukocyte Esterase 1+ (NEGATIVE) Urine RBC 0-2 /HPF (0 - 2) Urine WBC 0-2 /HPF (0 - 2) Urine Squamous Epithelial Cells Occasional /LPF Urine Bacteria Few /HPF (NONE) Urine Yeast Many /HPF (NONE) Gamma Glutamyl Transpeptidase 702 U/L (5-85) Ammonia 51 umol/L (11-32) 117 umol/L (11-32) Cortisol AM Sample 1.0 UG/DL Vancomycin Level Trough 16.2 ug/mL (5.0-12.0) Height (Feet): 5 Height (Inches): 1.00 Weight (Pounds): 228 Objective Physical Exam: Vitals: reviewed General: NAD HEENT: nc, at++ngt Neck: supple Chest: crackles b/l, mech breath sounds ++intubated Cardiovascular: RRR, no s3, s4 EXT ++ Significant edema and erythema bilateral lower extremity, patient also has blistering on both feet, picc+ Neurologic: sedated Skin: other - As above Brett Mcclain MD April 05, 2020 09:24
--- NOTE | 2020-04-05 10:31 | Infectious Diseases Prog Note ---
Assessment/Plan Assessment/Plan IMPRESSION: 1. Bilateral leg cellulitis,Pseudomonas in culture 2. Anemia. 3. Hypoxemic respiratory failure 4. Thrombocytopenia. 5. Homeless 6. Morbid obesity. 7. Cirrhosis 8. COVID19 pneumonia Positive03/07-03/12, 03/24, 03/27. 04/02 9. Hepatitis C 10.septic shock 11. Pneumonia with Pseudomonas 12. DM & hyperglycemia 13. Diarrhea, C. difficile negative 14. Leukocytosis improving 15. Severe encephalopathy RECOMMENDATION: Will f/u COVID19 test Finished Plaquenil ,Actemra, steroids & Ivermectin continue Meropenem, Vancomycin & Fluconazole Poor prognosis Case was D/W RN Subjective ROS Limited/Unobtainable: Yes Constitutional: Reports: fever, other - last night Cardiovascular: Reports: other - on pressor Allergies: Coded Allergies: No Known Allergies (Unverified , 02/29/20) Objective Vital Signs Last 24 Hour Vital Signs Date Time Temp Pulse Resp B/P (MAP) Pulse Ox O2 Delivery O2 Flow Rate FiO2 04/05/20 09:52 86 24 100 04/05/20 09:40 101/42 04/05/20 09:30 88 42 98/54 (69) 93 04/05/20 09:00 89 37 97/54 (68) 93 04/05/20 08:30 87 29 84/25 (44) 92 04/05/20 08:22 101/42 04/05/20 08:00 100 04/05/20 08:00 99.0 83 22 106/40 (62) 92 04/05/20 08:00 Mechanical Ventilator Mechanical Ventilator 04/05/20 07:30 91 36 120/57 (78) 95 04/05/20 07:10 86 24 100 04/05/20 07:00 101/42 04/05/20 07:00 101/42 04/05/20 07:00 86 24 100/45 (63) 90 04/05/20 06:45 86 24 93/51 (65) 91 04/05/20 06:30 85 24 78/38 (51) 87 04/05/20 06:15 85 24 99/44 (62) 89 04/05/20 06:00 84 24 102/51 (68) 89 04/05/20 06:00 102/48 04/05/20 06:00 102/48 04/05/20 05:33 56/29 04/05/20 05:30 85 24 113/51 (71) 93 04/05/20 05:00 85 24 100/35 (56) 91 04/05/20 05:00 98/39 04/05/20 05:00 98/39 04/05/20 04:30 86 24 94/48 (63) 92 04/05/20 04:00 Mechanical Ventilator Mechanical Ventilator 04/05/20 04:00 98.3 86 24 89/41 (57) 90 04/05/20 04:00 87 04/05/20 04:00 96/49 04/05/20 04:00 96/49 04/05/20 04:00 100 04/05/20 03:30 86 24 96/44 (61) 90 04/05/20 03:00 85 24 89/48 (62) 80 04/05/20 02:59 56/29 04/05/20 02:31 98 24 100 04/05/20 02:30 85 24 102/50 (67) 89 04/05/20 02:00 84 24 56/29 (38) 88 04/05/20 02:00 101/56 04/05/20 01:15 87 32 101/48 (65) 89 04/05/20 01:00 87 32 101/35 (57) 88 04/05/20 01:00 109/52 04/05/20 01:00 109/52 04/05/20 00:45 88 29 114/54 (74) 85 04/05/20 00:43 107/41 04/05/20 00:30 88 32 109/48 (68) 89 04/05/20 00:15 89 30 107/41 (63) 90 04/05/20 00:00 102 04/05/20 00:00 Mechanical Ventilator Mechanical Ventilator 04/05/20 00:00 104/46 04/05/20 00:00 99.2 89 34 105/44 (64) 89 04/04/20 23:45 89 31 108/29 (55) 92 04/04/20 23:30 88 30 76/38 (51) 91 04/04/20 23:00 90 29 109/44 (65) 91 04/04/20 23:00 104/46 04/04/20 23:00 85/43 5/19/20 22:56 91 24 50 5/19/20 22:30 90 33 104/46 (65) 92 5/19/20 22:15 90 30 102/60 (74) 91 5/19/20 22:00 91 34 99/55 (70) 88 5/19/20 22:00 90/59 5/19/20 22:00 90/59 5/19/20 21:30 91 27 79/45 (56) 90 5/19/20 21:15 92 26 82/49 (60) 94 5/19/20 21:00 92 30 85/30 (48) 96 5/19/20 21:00 82/53 5/19/20 21:00 82/49 5/19/20 20:45 93 32 87/49 (62) 93 5/19/20 20:30 92 27 90/50 (63) 94 519/20 20:26 83/47 519/20 20:26 83/47 519/20 20:19 93 24 83/47 (59) 86 519/20 20:15 93 18 72/30 (44) 88 519/20 20:00 Mechanical Ventilator Mechanical Ventilator 19/20 20:00 93 519/20 20:00 80 519/20 20:00 85/56 519/20 20:00 85/56 519/20 20:00 101.0 93 26 85/56 (66) 95 5/19/20 19:15 93 24 98/42 (60) 95 519/20 19:10 97 24 50 5/19/20 19:00 93 24 88/51 (63) 96 5/19/20 19:00 93/50 5/19/20 19:00 93/50 5/19/20 18:30 94 24 95/55 (68) 96 5/19/20 18:00 89/56 5/19/20 18:00 89/56 5/19/20 18:00 94 26 96/57 (70) 96 5/19/20 17:30 94 29 98/53 (68) 95 5/19/20 17:22 90/41 5/19/20 17:11 94 24 91 Mechanical Ventilator 50 5/19/20 17:00 94 25 93/53 (66) 95 5/19/20 17:00 97/44 04/04/20 17:00 97/44 04/04/20 16:30 96 24 102/48 (66) 93 04/04/20 16:00 99.0 96 24 106/42 (63) 93 04/04/20 16:00 104/51 04/04/20 16:00 104/51 04/04/20 16:00 Mechanical Ventilator Mechanical Ventilator 04/04/20 16:00 96 04/04/20 16:00 50 04/04/20 15:30 95 24 73/27 (42) 92 04/04/20 15:02 89 24 50 04/04/20 15:00 96 24 107/41 (63) 95 04/04/20 15:00 107/41 04/04/20 15:00 90/41 04/04/20 15:00 107/41 04/04/20 14:30 86 24 55/33 (40) 84 04/04/20 14:00 94 24 90/32 (51) 90 04/04/20 14:00 97/34 04/04/20 14:00 97/34 04/04/20 13:30 94 24 105/31 (55) 91 04/04/20 13:00 105/41 04/04/20 13:00 105/41 04/04/20 13:00 90/32 04/04/20 13:00 95 24 99/43 (61) 91 04/04/20 12:00 Mechanical Ventilator Mechanical Ventilator 04/04/20 12:00 98.6 94 25 108/43 (64) 93 04/04/20 12:00 94 04/04/20 12:00 109/31 04/04/20 12:00 109/31 04/04/20 12:00 50 04/04/20 11:30 94 24 107/49 (68) 92 04/04/20 11:02 94 24 50 04/04/20 11:00 104/43 04/04/20 11:00 104/43 04/04/20 11:00 94 24 99/46 (63) 91 Height (Feet): 5 Height (Inches): 1.00 Weight (Pounds): 228 HEENT: other - orally intubated Respiratory/Chest: other - on ventilator Cardiovascular: normal rate Abdomen: soft, non tender Extremities: other - edema Neurologic/Psychiatric: unresponsiveness Microbiology Date/Time Source Procedure Growth Status 04/02/20 23:25 Blood Blood Culture - Preliminary NO GROWTH AFTER 48 HOURS Resulted 04/02/20 13:40 Nasopharynx Coronavirus COVID-19 PCR (DANIELLA) - Final Complete 04/02/20 13:40 Indwelling Cath Urine Culture - Final Nidhi Albicans Complete Laboratory Tests Test 04/05/20 03:15 White Blood Count 12.3 K/UL (4.8-10.8) H Red Blood Count 2.48 M/UL (4.20-5.40) L Hemoglobin 9.1 G/DL (12.0-16.0) L Hematocrit 26.3 % (37.0-47.0) L Mean Corpuscular Volume 106 FL (80-99) H Mean Corpuscular Hemoglobin 36.5 PG (27.0-31.0) H Mean Corpuscular Hemoglobin Concent 34.5 G/DL (32.0-36.0) Red Cell Distribution Width 21.7 % (11.6-14.8) H Platelet Count 109 K/UL (150-450) L Mean Platelet Volume 8.6 FL (6.5-10.1) Neutrophils (%) (Auto) % (45.0-75.0) Lymphocytes (%) (Auto) % (20.0-45.0) Monocytes (%) (Auto) % (1.0-10.0) Eosinophils (%) (Auto) % (0.0-3.0) Basophils (%) (Auto) % (0.0-2.0) Sodium Level 128 MMOL/L (136-145) L Potassium Level 3.8 MMOL/L (3.5-5.1) Chloride Level 91 MMOL/L (98-107) L Carbon Dioxide Level 33 MMOL/L (21-32) H Anion Gap 4 mmol/L (5-15) L Blood Urea Nitrogen 54 mg/dL (7-18) H Creatinine 0.8 MG/DL (0.55-1.30) Estimat Glomerular Filtration Rate > 60 mL/min (>60) Glucose Level 146 MG/DL (74-106) H Calcium Level 7.7 MG/DL (8.5-10.1) L Total Bilirubin 1.8 MG/DL (0.2-1.0) H Direct Bilirubin 0.9 MG/DL (0.0-0.3) H Aspartate Amino Transf (AST/SGOT) 598 U/L (15-37) H Alanine Aminotransferase (ALT/SGPT) 212 U/L (12-78) H Alkaline Phosphatase 510 U/L (46-116) H Ammonia 117 umol/L (11-32) H Total Protein 5.9 G/DL (6.4-8.2) L Albumin 2.0 G/DL (3.4-5.0) L Globulin 3.9 g/dL Albumin/Globulin Ratio 0.5 (1.0-2.7) L Current Medications Medications (Trade) Dose Ordered Sig/Dolores Route PRN Reason Start Time Stop Time Status Last Admin Dose Admin Acetaminophen (Tylenol) 650 mg Q4H PRN NG Temp >100.5 04/01/20 22:00 05/01/20 21:59 Acetaminophen (Tylenol) 650 mg Q4H PRN ORAL Mild Pain (Pain Scale 1-3) 03/13/20 14:53 04/12/20 14:52 04/01/20 21:26 Allopurinol (allopurinoL) 300 mg DAILY NG 04/04/20 10:32 05/04/20 10:31 04/05/20 08:21 Chlorhexidine Gluconate (Lucretia-Hex 2%) 1 applic DAILY@2000 TOPIC 03/13/20 20:00 06/11/20 19:59 04/04/20 20:13 Dextrose (Dextrose 50%) 25 ml Q30M PRN IV Hypoglycemia 04/03/20 00:00 07/02/20 00:00 Dextrose (Dextrose 50%) 50 ml Q30M PRN IV Hypoglycemia 04/03/20 00:00 07/02/20 00:00 Dopamine HCl/ Dextrose 250 ml @ 0 mls/hr Q24H IV 03/16/20 19:30 06/14/20 19:29 04/05/20 08:22 Fluconazole (Diflucan) 200 mg DAILY NG 03/31/20 11:00 04/07/20 10:59 04/05/20 08:21 Hydralazine HCl (Apresoline) 10 mg Q6H PRN IV For High Blood Pressure 03/24/20 16:45 06/22/20 16:44 Insulin Aspart (NovoLOG) Q6HR SUBQ 04/03/20 00:00 07/02/20 00:00 04/05/20 05:33 Lactulose (Cephulac) 40 gm Q8HR ORAL 04/01/20 14:00 04/30/20 17:59 04/05/20 05:17 Levothyroxine Sodium (Synthroid) 50 mcg QOD IV 04/05/20 09:00 04/17/20 11:59 04/05/20 09:40 Meropenem 1 gm/ Sodium Chloride 55 ml @ 110 mls/hr Q8HR IVPB 03/29/20 14:00 04/07/20 13:59 04/05/20 05:17 Metoclopramide HCl (Reglan) 10 mg EVERY 6 HOURS IVP 04/04/20 12:00 05/04/20 11:59 04/05/20 05:17 Midodrine (Pro-Amatine) 10 mg THREE TIMES A DAY NG 03/27/20 09:00 06/20/20 12:29 04/05/20 08:21 Norepinephrine Bitartrate 16 mg/ Dextrose 566 ml @ 0 mls/hr Q24H IV 04/04/20 23:00 05/04/20 22:59 04/05/20 09:40 Sodium Chloride 500 ml @ 30 mls/hr ONCE ONCE IV 04/05/20 08:30 04/06/20 01:09 04/05/20 09:40 Vancomycin HCl (Vanco rx to dose) 1 ea DAILY PRN MISC Per rx protocol 04/02/20 11:00 05/02/20 10:59 Vancomycin HCl 500 mg/Sodium Chloride 110 ml @ 110 mls/hr Q12HR@0600,1800 IVPB 04/02/20 18:00 04/07/20 17:59 04/05/20 05:17 Vasopressin 100 units/Sodium Chloride 100 ml @ 0 mls/hr Q24H PRN IV For hypotension 03/16/20 11:00 04/15/20 10:59 04/04/20 21:31 Jonathon Shah MD April 05, 2020 10:31
--- NOTE | 2020-04-05 11:35 | Nephrology Progress Note ---
Assessment/Plan Problem List: (1) Respiratory failure with hypoxia (2) Electrolyte imbalance Assessment: Hyponatremia resolved -hyperkalemia resolved (3) COVID-19 (4) Cellulitis (5) Hypothyroid Assessment Hyponatremia. Serum sodium started drifting down from March 16. Hyperkalemia. Septic shock. Acute respiratory failure. Respiratory failure and COVID pneumonia. History of cirrhosis/splenomegaly Anemia Bilateral lower extremity cellulitis Plan EEG: This is a severely abnormal EEG characterized by very low amplitude, slow activity with no reactivity to external stimulation. COMMENT: The study is consistent with severe encephalopathy. Clinical correlation is recommended. April 05: Patient is doing poorly on 3 pressors and remains unresponsive Remains full code Not much to add from renal standpoint of view Discussed with DAO Little Will give a trial of 3% saline for hyponatremia April 04: Patient stable from renal standpoint to view We will continue to watch BUN/creatinine and electrolytes Will add allopurinol for high uric acid Continue per consultants Remains full code Per orders April 03: Hypotensive, on pressors as needed Unresponsive Serum sodium improved Will administer another bolus of 3% saline Continue per consultants Not much to add from renal standpoint to view Prognosis poor, remain full code March 17: Blood pressure is maintained on pressors Remains unresponsive Today's lab reviewed 3% saline ordered EEG is severely abnormal Remains full code however prognosis is poor Discussed with DAO Huber ED April 01: Patient became hypoglycemic so long-acting insulin is held Potassium is 5.7 so albumin and Lasix in addition to Kayexalate is ordered Increase D5W to 100 cc an hour Blood sugar management per Endo Discussed with DAO Gabriel EEG ordered results pending Overall prognosis poor March 15: Increase lactulose dose 1 dose of Kayexalate Continue to monitor liver enzymes Patient unresponsive despite discontinuation of all mind altering medications Neuro eval? March 30 Electrolytes and bicarb improved We will cut down D5W IV fluid Blood sugar better controlled Liver enzymes still remains elevated Discussed with DAO March 29: Worsening leukocytosis Serum sodium lowering Blood sugar still elevated need insulin adjustment Continue to monitor electrolytes and renal parameters Continue per pulmonary Discussed with DAO Sarkar March 28: Serum sodium down to 160 Continue with D5W Continue per pulmonary March 27: Serum sodium vahe Patient retaining CO2 Will start D5W IV fluid Hold Diamox for now until further comments from service station operator Continue to monitor electrolytes Midodrine dose increased March 26: Remains unstable. Lasix and potassium chloride discontinued. IV Diamox initiated. ABG noted. Midodrine initiated. Continue per pulmonary and ID. Statins discontinued due to elevated liver enzymes. Continue to monitor electrolytes and renal parameters and ABG. Patient remains full code. 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 per pattern changer and repairer Taper steroids's deferred to service station operator Urine sodium is below 20 Serum ammonia is elevated will start lactulose Patient on Solu-Medrol and Solu-Cortef will discontinue Solu-Cortef Will try to gently diurese for severe edema meanwhile administering albumin 25% as needed Monitor electrolytes and renal parameters We will add midodrine 10 mg 3 times a day via NG tube Decrease dosage of IV Synthroid Discussed with DAO Starr Subjective ROS Limited/Unobtainable: Yes Objective Objective Last 24 Hour Vital Signs Date Time Temp Pulse Resp B/P (MAP) Pulse Ox O2 Delivery O2 Flow Rate FiO2 04/05/20 11:23 103/54 04/05/20 10:00 103/54 04/05/20 10:00 103/54 04/05/20 09:52 86 24 100 04/05/20 09:40 101/42 04/05/20 09:39 101/44 04/05/20 09:30 88 42 98/54 (69) 93 04/05/20 09:00 89 37 97/54 (68) 93 04/05/20 09:00 99/48 04/05/20 09:00 99/48 04/05/20 08:30 87 29 84/25 (44) 92 04/05/20 08:22 101/42 04/05/20 08:21 66/25 04/05/20 08:00 100 04/05/20 08:00 99.0 83 22 106/40 (62) 92 04/05/20 08:00 106/40 04/05/20 08:00 106/40 04/05/20 08:00 Mechanical Ventilator Mechanical Ventilator 04/05/20 08:00 88 04/05/20 07:30 91 36 120/57 (78) 95 04/05/20 07:10 86 24 100 04/05/20 07:00 101/42 04/05/20 07:00 101/42 04/05/20 07:00 86 24 100/45 (63) 90 04/05/20 06:45 86 24 93/51 (65) 91 04/05/20 06:30 85 24 78/38 (51) 87 04/05/20 06:15 85 24 99/44 (62) 89 04/05/20 06:00 84 24 102/51 (68) 89 04/05/20 06:00 102/48 04/05/20 06:00 102/48 04/05/20 05:33 56/29 04/05/20 05:30 85 24 113/51 (71) 93 04/05/20 05:00 85 24 100/35 (56) 91 04/05/20 05:00 98/39 04/05/20 05:00 98/39 04/05/20 04:30 86 24 94/48 (63) 92 04/05/20 04:00 Mechanical Ventilator Mechanical Ventilator 04/05/20 04:00 98.3 86 24 89/41 (57) 90 04/05/20 04:00 87 04/05/20 04:00 96/49 04/05/20 04:00 96/49 04/05/20 04:00 100 04/05/20 03:30 86 24 96/44 (61) 90 04/05/20 03:00 85 24 89/48 (62) 80 04/05/20 02:59 56/29 04/05/20 02:31 98 24 100 04/05/20 02:30 85 24 102/50 (67) 89 04/05/20 02:00 84 24 56/29 (38) 88 20 02:00 101/56 04/05/20 01:15 87 32 101/48 (65) 89 04/05/20 01:00 87 32 101/35 (57) 88 04/05/20 01:00 109/52 04/05/20 01:00 109/52 04/05/20 00:45 88 29 114/54 (74) 85 04/05/20 00:43 107/41 04/05/20 00:30 88 32 109/48 (68) 89 20 00:15 89 30 107/41 (63) 90 5/20/20 00:00 102 5/20/20 00:00 Mechanical Ventilator Mechanical Ventilator 20 00:00 104/46 5/20/20 00:00 99.2 89 34 105/44 (64) 89 5/19/20 23:45 89 31 108/29 (55) 92 5/19/20 23:30 88 30 76/38 (51) 91 [id number] 23:00 90 29 109/44 (65) 91 519/20 23:00 104/46 519/20 23:00 85/43 519/20 22:56 91 24 50 5/19/20 22:30 90 33 104/46 (65) 92 519/20 22:15 90 30 102/60 (74) 91 520 22:00 91 34 99/55 (70) 88 [id number] 22:00 90/59 519/20 22:00 90/59 5/20 21:30 91 27 79/45 (56) 90 520 21:15 92 26 82/49 (60) 94 519/20 21:00 92 30 85/30 (48) 96 519/20 21:00 82/53 519/20 21:00 82/49 5/20 20:45 93 32 87/49 (62) 93 5/19/20 20:30 92 27 90/50 (63) 94 1920 20:26 83/47 519/20 20:26 83/47 519/20 20:19 93 24 83/47 (59) 86 519/20 20:15 93 18 72/30 (44) 88 519/20 20:00 Mechanical Ventilator Mechanical Ventilator 20 20:00 93 519/20 20:00 80 519/20 20:00 85/56 519/20 20:00 85/56 519/20 20:00 101.0 93 26 85/56 (66) 95 5/19/20 19:15 93 24 98/42 (60) 95 519/20 19:10 97 24 50 519/20 19:00 93 24 88/51 (63) 96 519/20 19:00 93/50 5/19/20 19:00 93/50 04/04/20 18:30 94 24 95/55 (68) 96 04/04/20 18:00 89/56 5 18:00 89/56 04/04/20 18:00 94 26 96/57 (70) 96 04/04/20 17:30 94 29 98/53 (68) 95 04/04/20 17:22 90/41 04/04/20 17:11 94 24 91 Mechanical Ventilator 50 04/04/20 17:00 94 25 93/53 (66) 95 04/04/20 17:00 97/44 04/04/20 17:00 97/44 04/04/20 16:30 96 24 102/48 (66) 93 04/04/20 16:00 99.0 96 24 106/42 (63) 93 04/04/20 16:00 104/51 04/04/20 16:00 104/51 04/04/20 16:00 Mechanical Ventilator Mechanical Ventilator 04/04/20 16:00 96 04/04/20 16:00 50 04/04/20 15:30 95 24 73/27 (42) 92 04/04/20 15:02 89 24 50 04/04/20 15:00 96 24 107/41 (63) 95 04/04/20 15:00 107/41 04/04/20 15:00 90/41 04/04/20 15:00 107/41 04/04/20 14:30 86 24 55/33 (40) 84 04/04/20 14:00 94 24 90/32 (51) 90 04/04/20 14:00 97/34 04/04/20 14:00 97/34 04/04/20 13:30 94 24 105/31 (55) 91 04/04/20 13:00 105/41 04/04/20 13:00 105/41 04/04/20 13:00 90/32 04/04/20 13:00 95 24 99/43 (61) 91 04/04/20 12:00 Mechanical Ventilator Mechanical Ventilator 04/04/20 12:00 98.6 94 25 108/43 (64) 93 04/04/20 12:00 94 04/04/20 12:00 109/31 04/04/20 12:00 109/31 04/04/20 12:00 50 Intake and Output 04/04/20 04/05/20 19:00 07:00 Intake Total 2208.075 ml 1731.183 ml Output Total 390 ml 180 ml Balance 1818.075 ml 1551.183 ml IV Total 2208.075 ml 1731.183 ml Tube Feeding 0 ml 0 ml Output Urine Total 390 ml 180 ml # Bowel Movements 1 Laboratory Tests 04/05/20 03:15: White Blood Count 12.3H, Red Blood Count 2.48L, Hemoglobin 9.1L, Hematocrit 26.3L, Mean Corpuscular Volume 106H, Mean Corpuscular Hemoglobin 36.5H, Mean Corpuscular Hemoglobin Concent 34.5, Red Cell Distribution Width 21.7H, Platelet Count 109L, Mean Platelet Volume 8.6, Neutrophils (%) (Auto) , Lymphocytes (%) (Auto) , Monocytes (%) (Auto) , Eosinophils (%) (Auto) , Basophils (%) (Auto) , Sodium Level 128L, Potassium Level 3.8, Chloride Level 91L, Carbon Dioxide Level 33H, Anion Gap 4L, Blood Urea Nitrogen 54H, Creatinine 0.8, Estimat Glomerular Filtration Rate > 60, Glucose Level 146H, Calcium Level 7.7L, Total Bilirubin 1.8H, Direct Bilirubin 0.9H, Aspartate Amino Transf (AST/SGOT) 598H, Alanine Aminotransferase (ALT/SGPT) 212H, Alkaline Phosphatase 510H, Ammonia 117H, Total Protein 5.9L, Albumin 2.0L, Globulin 3.9, Albumin/Globulin Ratio 0.5L Height (Feet): 5 Height (Inches): 1.00 Weight (Pounds): 228 General Appearance: no apparent distress, other - Unresponsive Cardiovascular: tachycardia Respiratory/Chest: decreased breath sounds Abdomen: distended Objective No change Cristhian Granados MD April 05, 2020 11:35
--- NOTE | 2020-04-05 11:44 | General Progress Note ---
Assessment/Plan Status: progressing, unchanged Assessment/Plan: macrocytic anemia elevated LFTS cirrhosis cellulitis elevated Ammonia levels respiratory distress>>> now failure COVID positive pna NGTF on hold for elevated residuals reglan 5 mg iv Q6 for elevate residuals abd us>> reordered>>>>pending!!!! Xifaxan and lactulose monitor ammonia level fu stool ob>>>neg GI procedures if needed abx per id hepatitis panel>>>>>positive for hep C>>> needs out patient fu poor prognosis doing worse will fu Subjective ROS Limited/Unobtainable: No Allergies: Coded Allergies: No Known Allergies (Unverified , 02/29/20) Objective Last 24 Hour Vital Signs Date Time Temp Pulse Resp B/P (MAP) Pulse Ox O2 Delivery O2 Flow Rate FiO2 04/05/20 11:35 88 24 100 04/05/20 11:23 103/54 04/05/20 10:00 103/54 04/05/20 10:00 103/54 04/05/20 09:52 86 24 100 04/05/20 09:40 101/42 04/05/20 09:39 101/44 04/05/20 09:30 88 42 98/54 (69) 93 04/05/20 09:00 89 37 97/54 (68) 93 04/05/20 09:00 99/48 04/05/20 09:00 99/48 04/05/20 08:30 87 29 84/25 (44) 92 04/05/20 08:22 101/42 04/05/20 08:21 66/25 04/05/20 08:00 100 04/05/20 08:00 99.0 83 22 106/40 (62) 92 04/05/20 08:00 106/40 04/05/20 08:00 106/40 04/05/20 08:00 Mechanical Ventilator Mechanical Ventilator 04/05/20 08:00 88 04/05/20 07:30 91 36 120/57 (78) 95 04/05/20 07:10 86 24 100 04/05/20 07:00 101/42 04/05/20 07:00 101/42 04/05/20 07:00 86 24 100/45 (63) 90 04/05/20 06:45 86 24 93/51 (65) 91 04/05/20 06:30 85 24 78/38 (51) 87 04/05/20 06:15 85 24 99/44 (62) 89 04/05/20 06:00 84 24 102/51 (68) 89 04/05/20 06:00 102/48 520 06:00 102/48 04/05/20 05:33 56/29 5 05:30 85 24 113/51 (71) 93 04/05/20 05:00 85 24 100/35 (56) 91 04/05/20 05:00 98/39 5 05:00 98/39 04/05/20 04:30 86 24 94/48 (63) 92 04/05/20 04:00 Mechanical Ventilator Mechanical Ventilator 04/05/20 04:00 98.3 86 24 89/41 (57) 90 04/05/20 04:00 87 04/05/20 04:00 96/49 04/05/20 04:00 96/49 04/05/20 04:00 100 04/05/20 03:30 86 24 96/44 (61) 90 04/05/20 03:00 85 24 89/48 (62) 80 04/05/20 02:59 56/29 04/05/20 02:31 98 24 100 04/05/20 02:30 85 24 102/50 (67) 89 04/05/20 02:00 84 24 56/29 (38) 88 04/05/20 02:00 101/56 04/05/20 01:15 87 32 101/48 (65) 89 04/05/20 01:00 87 32 101/35 (57) 88 04/05/20 01:00 109/52 04/05/20 01:00 109/52 04/05/20 00:45 88 29 114/54 (74) 85 04/05/20 00:43 107/41 04/05/20 00:30 88 32 109/48 (68) 89 04/05/20 00:15 89 30 107/41 (63) 90 04/05/20 00:00 102 04/05/20 00:00 Mechanical Ventilator Mechanical Ventilator 04/05/20 00:00 104/46 5 00:00 99.2 89 34 105/44 (64) 89 5/19/20 23:45 89 31 108/29 (55) 92 5/19/20 23:30 88 30 76/38 (51) 91 5/19/20 23:00 90 29 109/44 (65) 91 5/19/20 23:00 104/46 5/19/20 23:00 85/43 5/19/20 22:56 91 24 50 5/19/20 22:30 90 33 104/46 (65) 92 5/19/20 22:15 90 30 102/60 (74) 91 5/19/20 22:00 91 34 99/55 (70) 88 5/19/20 22:00 90/59 5/19/20 22:00 90/59 5/19/20 21:30 91 27 79/45 (56) 90 5/19/20 21:15 92 26 82/49 (60) 94 5/19/20 21:00 92 30 85/30 (48) 96 5/19/20 21:00 82/53 5/19/20 21:00 82/49 5/19/20 20:45 93 32 87/49 (62) 93 5/19/20 20:30 92 27 90/50 (63) 94 5/19/20 20:26 83/47 5/19/20 20:26 83/47 5/19/20 20:19 93 24 83/47 (59) 86 5/19/20 20:15 93 18 72/30 (44) 88 5/19/20 20:00 Mechanical Ventilator Mechanical Ventilator 19/20 20:00 93 5/19/20 20:00 80 5/19/20 20:00 85/56 5/19/20 20:00 85/56 5/19/20 20:00 101.0 93 26 85/56 (66) 95 5/19/20 19:15 93 24 98/42 (60) 95 5/19/20 19:10 97 24 50 5/19/20 19:00 93 24 88/51 (63) 96 5/19/20 19:00 93/50 5/19/20 19:00 93/50 5/19/20 18:30 94 24 95/55 (68) 96 5/19/20 18:00 89/56 5/19/20 18:00 89/56 5/19/20 18:00 94 26 96/57 (70) 96 04/04/20 17:30 94 29 98/53 (68) 95 04/04/20 17:22 90/41 04/04/20 17:11 94 24 91 Mechanical Ventilator 50 04/04/20 17:00 94 25 93/53 (66) 95 04/04/20 17:00 97/44 04/04/20 17:00 97/44 04/04/20 16:30 96 24 102/48 (66) 93 04/04/20 16:00 99.0 96 24 106/42 (63) 93 04/04/20 16:00 104/51 04/04/20 16:00 104/51 04/04/20 16:00 Mechanical Ventilator Mechanical Ventilator 04/04/20 16:00 96 04/04/20 16:00 50 04/04/20 15:30 95 24 73/27 (42) 92 04/04/20 15:02 89 24 50 04/04/20 15:00 96 24 107/41 (63) 95 04/04/20 15:00 107/41 04/04/20 15:00 90/41 04/04/20 15:00 107/41 04/04/20 14:30 86 24 55/33 (40) 84 04/04/20 14:00 94 24 90/32 (51) 90 04/04/20 14:00 97/34 04/04/20 14:00 97/34 04/04/20 13:30 94 24 105/31 (55) 91 04/04/20 13:00 105/41 04/04/20 13:00 105/41 04/04/20 13:00 90/32 04/04/20 13:00 95 24 99/43 (61) 91 04/04/20 12:00 Mechanical Ventilator Mechanical Ventilator 04/04/20 12:00 98.6 94 25 108/43 (64) 93 04/04/20 12:00 94 04/04/20 12:00 109/31 04/04/20 12:00 109/31 04/04/20 12:00 50 Intake and Output 04/04/20 04/05/20 19:00 07:00 Intake Total 2208.075 ml 1731.183 ml Output Total 390 ml 180 ml Balance 1818.075 ml 1551.183 ml IV Total 2208.075 ml 1731.183 ml Tube Feeding 0 ml 0 ml Output Urine Total 390 ml 180 ml # Bowel Movements 1 Laboratory Tests 04/05/20 03:15: White Blood Count 12.3H, Red Blood Count 2.48L, Hemoglobin 9.1L, Hematocrit 26.3L, Mean Corpuscular Volume 106H, Mean Corpuscular Hemoglobin 36.5H, Mean Corpuscular Hemoglobin Concent 34.5, Red Cell Distribution Width 21.7H, Platelet Count 109L, Mean Platelet Volume 8.6, Neutrophils (%) (Auto) , Lymphocytes (%) (Auto) , Monocytes (%) (Auto) , Eosinophils (%) (Auto) , Basophils (%) (Auto) , Sodium Level 128L, Potassium Level 3.8, Chloride Level 91L, Carbon Dioxide Level 33H, Anion Gap 4L, Blood Urea Nitrogen 54H, Creatinine 0.8, Estimat Glomerular Filtration Rate > 60, Glucose Level 146H, Calcium Level 7.7L, Total Bilirubin 1.8H, Direct Bilirubin 0.9H, Aspartate Amino Transf (AST/SGOT) 598H, Alanine Aminotransferase (ALT/SGPT) 212H, Alkaline Phosphatase 510H, Ammonia 117H, Total Protein 5.9L, Albumin 2.0L, Globulin 3.9, Albumin/Globulin Ratio 0.5L Height (Feet): 5 Height (Inches): 1.00 Weight (Pounds): 228 General Appearance: no apparent distress EENT: PERRL/EOMI Neck: supple Cardiovascular: normal rate Respiratory/Chest: decreased breath sounds Abdomen: soft, hypoactive bowel sounds Extremities: non-tender Tam Spicer MD April 05, 2020 11:44
--- NOTE | 2020-04-05 14:27 | Surgery Progress Note ---
Surgery Progress Note Subjective Additional Comments ill appearing prognosis guarded labs noted Objective Last 24 Hour Vital Signs Date Time Temp Pulse Resp B/P (MAP) Pulse Ox O2 Delivery O2 Flow Rate FiO2 04/05/20 13:28 47 40 100/48 (65) 88 04/05/20 13:00 89 40 95/44 (61) 88 04/05/20 12:30 88 33 94/48 (63) 91 04/05/20 12:00 80 04/05/20 12:00 89 41 100/48 (65) 91 04/05/20 11:35 88 24 100 04/05/20 11:30 86 40 102/42 (62) 91 04/05/20 11:23 103/54 04/05/20 11:00 88 41 107/42 (63) 91 04/05/20 10:30 87 42 109/54 (72) 91 04/05/20 10:00 86 40 103/54 (70) 91 04/05/20 10:00 103/54 04/05/20 10:00 103/54 04/05/20 09:52 86 24 100 04/05/20 09:40 101/42 04/05/20 09:39 101/44 04/05/20 09:30 88 42 98/54 (69) 93 04/05/20 09:00 89 37 97/54 (68) 93 04/05/20 09:00 99/48 04/05/20 09:00 99/48 04/05/20 08:30 87 29 84/25 (44) 92 04/05/20 08:22 101/42 04/05/20 08:21 66/25 04/05/20 08:00 100 04/05/20 08:00 99.0 83 22 106/40 (62) 92 04/05/20 08:00 106/40 04/05/20 08:00 106/40 04/05/20 08:00 Mechanical Ventilator Mechanical Ventilator 04/05/20 08:00 88 04/05/20 07:30 91 36 120/57 (78) 95 04/05/20 07:10 86 24 100 04/05/20 07:00 101/42 04/05/20 07:00 101/42 04/05/20 07:00 86 24 100/45 (63) 90 04/05/20 06:45 86 24 93/51 (65) 91 04/05/20 06:30 85 24 78/38 (51) 87 04/05/20 06:15 85 24 99/44 (62) 89 20 06:00 84 24 102/51 (68) 89 20 06:00 102/48 520 06:00 102/48 04/05/20 05:33 56/29 5 05:30 85 24 113/51 (71) 93 04/05/20 05:00 85 24 100/35 (56) 91 04/05/20 05:00 98/39 5 05:00 98/39 04/05/20 04:30 86 24 94/48 (63) 92 04/05/20 04:00 Mechanical Ventilator Mechanical Ventilator 04/05/20 04:00 98.3 86 24 89/41 (57) 90 04/05/20 04:00 87 04/05/20 04:00 96/49 04/05/20 04:00 96/49 04/05/20 04:00 100 04/05/20 03:30 86 24 96/44 (61) 90 04/05/20 03:00 85 24 89/48 (62) 80 04/05/20 02:59 56/29 04/05/20 02:31 98 24 100 04/05/20 02:30 85 24 102/50 (67) 89 04/05/20 02:00 84 24 56/29 (38) 88 04/05/20 02:00 101/56 04/05/20 01:15 87 32 101/48 (65) 89 04/05/20 01:00 87 32 101/35 (57) 88 20 01:00 109/52 04/05/20 01:00 109/52 04/05/20 00:45 88 29 114/54 (74) 85 04/05/20 00:43 107/41 04/05/20 00:30 88 32 109/48 (68) 89 20 00:15 89 30 107/41 (63) 90 04/05/20 00:00 102 04/05/20 00:00 Mechanical Ventilator Mechanical Ventilator 04/05/20 00:00 104/46 04/05/20 00:00 99.2 89 34 105/44 (64) 89 5/19/20 23:45 89 31 108/29 (55) 92 5/19/20 23:30 88 30 76/38 (51) 91 5/19/20 23:00 90 29 109/44 (65) 91 5/19/20 23:00 104/46 5/19/20 23:00 85/43 5/19/20 22:56 91 24 50 5/19/20 22:30 90 33 104/46 (65) 92 5/19/20 22:15 90 30 102/60 (74) 91 5/19/20 22:00 91 34 99/55 (70) 88 5/19/20 22:00 90/59 5/19/20 22:00 90/59 5/19/20 21:30 91 27 79/45 (56) 90 5/19/20 21:15 92 26 82/49 (60) 94 5/19/20 21:00 92 30 85/30 (48) 96 5/19/20 21:00 82/53 5/19/20 21:00 82/49 5/19/20 20:45 93 32 87/49 (62) 93 5/19/20 20:30 92 27 90/50 (63) 94 5/19/20 20:26 83/47 5/19/20 20:26 83/47 5/19/20 20:19 93 24 83/47 (59) 86 5/19/20 20:15 93 18 72/30 (44) 88 5/19/20 20:00 Mechanical Ventilator Mechanical Ventilator 519/20 20:00 93 5/19/20 20:00 80 5/19/20 20:00 85/56 5/19/20 20:00 85/56 5/19/20 20:00 101.0 93 26 85/56 (66) 95 5/19/20 19:15 93 24 98/42 (60) 95 5/19/20 19:10 97 24 50 5/19/20 19:00 93 24 88/51 (63) 96 5/19/20 19:00 93/50 5/19/20 19:00 93/50 5/19/20 18:30 94 24 95/55 (68) 96 5/19/20 18:00 89/56 5/19/20 18:00 89/56 04/04/20 18:00 94 26 96/57 (70) 96 04/04/20 17:30 94 29 98/53 (68) 95 04/04/20 17:22 90/41 04/04/20 17:11 94 24 91 Mechanical Ventilator 50 04/04/20 17:00 94 25 93/53 (66) 95 04/04/20 17:00 97/44 04/04/20 17:00 97/44 04/04/20 16:30 96 24 102/48 (66) 93 04/04/20 16:00 99.0 96 24 106/42 (63) 93 04/04/20 16:00 104/51 04/04/20 16:00 104/51 04/04/20 16:00 Mechanical Ventilator Mechanical Ventilator 04/04/20 16:00 96 04/04/20 16:00 50 04/04/20 15:30 95 24 73/27 (42) 92 04/04/20 15:02 89 24 50 04/04/20 15:00 96 24 107/41 (63) 95 04/04/20 15:00 107/41 04/04/20 15:00 90/41 04/04/20 15:00 107/41 04/04/20 14:30 86 24 55/33 (40) 84 I&O Intake and Output 04/04/20 04/05/20 19:00 07:00 Intake Total 2208.075 ml 1731.183 ml Output Total 390 ml 180 ml Balance 1818.075 ml 1551.183 ml IV Total 2208.075 ml 1731.183 ml Tube Feeding 0 ml 0 ml Output Urine Total 390 ml 180 ml # Bowel Movements 1 Dressing: other Wound: other Drains: other Cardiovascular: RSR Respiratory: decreased breath sounds Abdomen: soft, non-tender, present bowel sounds Extremities: no tenderness, no cyanosis Laboratory Tests Test 04/05/20 03:15 White Blood Count 12.3 K/UL (4.8-10.8) H Red Blood Count 2.48 M/UL (4.20-5.40) L Hemoglobin 9.1 G/DL (12.0-16.0) L Hematocrit 26.3 % (37.0-47.0) L Mean Corpuscular Volume 106 FL (80-99) H Mean Corpuscular Hemoglobin 36.5 PG (27.0-31.0) H Mean Corpuscular Hemoglobin Concent 34.5 G/DL (32.0-36.0) Red Cell Distribution Width 21.7 % (11.6-14.8) H Platelet Count 109 K/UL (150-450) L Mean Platelet Volume 8.6 FL (6.5-10.1) Neutrophils (%) (Auto) % (45.0-75.0) Lymphocytes (%) (Auto) % (20.0-45.0) Monocytes (%) (Auto) % (1.0-10.0) Eosinophils (%) (Auto) % (0.0-3.0) Basophils (%) (Auto) % (0.0-2.0) Sodium Level 128 MMOL/L (136-145) L Potassium Level 3.8 MMOL/L (3.5-5.1) Chloride Level 91 MMOL/L (98-107) L Carbon Dioxide Level 33 MMOL/L (21-32) H Anion Gap 4 mmol/L (5-15) L Blood Urea Nitrogen 54 mg/dL (7-18) H Creatinine 0.8 MG/DL (0.55-1.30) Estimat Glomerular Filtration Rate > 60 mL/min (>60) Glucose Level 146 MG/DL (74-106) H Calcium Level 7.7 MG/DL (8.5-10.1) L Total Bilirubin 1.8 MG/DL (0.2-1.0) H Direct Bilirubin 0.9 MG/DL (0.0-0.3) H Aspartate Amino Transf (AST/SGOT) 598 U/L (15-37) H Alanine Aminotransferase (ALT/SGPT) 212 U/L (12-78) H Alkaline Phosphatase 510 U/L (46-116) H Ammonia 117 umol/L (11-32) H Total Protein 5.9 G/DL (6.4-8.2) L Albumin 2.0 G/DL (3.4-5.0) L Globulin 3.9 g/dL Albumin/Globulin Ratio 0.5 (1.0-2.7) L Plan Problems: (1) Cellulitis Assessment & Plan: bilateral lower extremity cellulitis / edema chronic venous status changes dermatitis no abscess no purulent drainage ulcerations forming. keep lower extremity elevated while in bed apply skin protectant / moisturizing cream daily okay to shower okay to wrap soft after cream abx as per ID for cellulitis okay for diet duplex ordered trend labs will follow with recs thank you No evidence of deep venous thrombosis involving the visualized veins of the RIGHT lower extremity. refused eval of left COVID ++ cxr noted cont current supportive care improving labs stable improving slowly wean pressors as tolerated Patient is acutely worsened intubated on vent support 2 pressors now worsening labs worsening Prognosis is guarded we will continue with maximal support efforts weaning vent weaning pressors leukocytosis trend lft's Diffuse bilateral interstitial and airspace opacities worsening again vent settings high on pressors DAILY ESTIMATED NEEDS: Needs based on obesity, cirrhosis, critical care/ 61kg abw 11-14 (actual body wt 102kg) kcals/kg 4182-7440 total kcals 1.5-2.5kg IBW (48kg IBW) g protein/kg 71-120 g total protein 25-30 mL/kg 2006-5220 total fluid mLs NUTRITION DIAGNOSIS: *Swallowing difficulty R/T respiratory failure as evidenced by pt now orally intubated, on pressor support, Covid-19 positive. *Decreased sodium and fat intake needs R/T cirrhosis dx, morbid obesity as evidenced by elev AST, elev NH3, BMI >50 (INACTIVE) CURRENT TF:NEPRO @33ml/hr-> HELD FOR RESIDUALS ENTERAL NUTRITION RECOMMENDATIONS: Nepro @ 33ml/hr x 24 hrs to provide 792ml, 1425kcal, 64g prot, 575ml free water As medically able rec to resume Nepro w/ goal of 33ml/hr x24 hrs -> flush per , HOB over 30 degrees. -------- -> WITHOUT HEMODYNAMIC STABILITY, rec trophic feeding of Nepro @ 5-10ml/hr ADDITIONAL RECOMMENDATIONS: * Calibrated bedscale wt for accurate CBW Current EMR wt 220#'s vs initial bedscale wt 283lbs * Monitor HEMODYNAMIC stability- on pressors x2 * Monitor lytes- K trend up, phos elev, rec TF change to Nepro at this time * Monitor BGs closely- on magdalena only now * Monitor LFTs: trending up (new TF order will provide 14g less fat) . (2) COVID-19 Assessment & Plan: see above Theron Sotomayor April 05, 2020 14:27
--- NOTE | 2020-04-05 17:02 | Cardiology Progress Note ---
Assessment/Plan Assessment/Plan 1. Acute hypoxic hypercapnic respiratory failure, due to bilateral airspace disease in additional to bilateral pleural effusion caused by COVID-19 infection , grim prognosis, low saturation despite high FiO2. 2. Septic shock on 3 vasopressors, LVEF at 60%. 3. Consumptive coagulopathy with thrombocytopenia, off lovenox after 6 days of treatment. 4. Bilateral lower extremity cellulitis with Pseudomonas aeruginosa. 5. HCV infection with liver cirrhosis. 6. Anoxic/hepatic encephalopathy, ammonia elevated. Subjective Subjective Sinus rhythm at rate of 90. On 3 vasopressors. Intubated. Fixed and dilated pupils. Objective Last 24 Hour Vital Signs Date Time Temp Pulse Resp B/P (MAP) Pulse Ox O2 Delivery O2 Flow Rate FiO2 04/05/20 16:00 100 04/05/20 16:00 Mechanical Ventilator Mechanical Ventilator 04/05/20 15:46 90 04/05/20 15:30 90 41 105/54 (71) 83 04/05/20 15:07 104/49 04/05/20 15:01 88 24 100 04/05/20 15:00 126/41 04/05/20 15:00 126/41 04/05/20 15:00 88 41 98/43 (61) 88 04/05/20 14:30 89 43 104/49 (67) 86 04/05/20 14:00 99/47 04/05/20 14:00 99/47 04/05/20 14:00 90 38 97/48 (64) 86 04/05/20 13:28 47 40 100/48 (65) 88 04/05/20 13:00 100/48 04/05/20 13:00 100/48 04/05/20 13:00 89 40 95/44 (61) 88 04/05/20 12:30 88 33 94/48 (63) 91 04/05/20 12:00 80 04/05/20 12:00 89 41 100/48 (65) 91 04/05/20 12:00 Mechanical Ventilator Mechanical Ventilator 04/05/20 12:00 99.4 89 41 100/48 (65) 91 04/05/20 12:00 55/26 04/05/20 12:00 55/26 04/05/20 12:00 100 04/05/20 11:35 88 24 100 04/05/20 11:30 86 40 102/42 (62) 91 20 11:23 103/54 520/20 11:22 102/46 520/20 11:00 107/42 52020 11:00 107/42 520 11:00 88 41 107/42 (63) 91 20 10:30 87 42 109/54 (72) 91 20 10:00 86 40 103/54 (70) 91 20 10:00 103/54 520 10:00 103/54 520 09:52 86 24 100 52020 09:40 101/42 52020 09:39 101/44 520 09:30 88 42 98/54 (69) 93 20 09:00 89 37 97/54 (68) 93 04/05/20 09:00 99/48 52020 09:00 99/48 20 08:30 87 29 84/25 (44) 92 20 08:22 101/42 520 08:21 66/25 520 08:00 100 520 08:00 99.0 83 22 106/40 (62) 92 04/05/20 08:00 106/40 520 08:00 106/40 520 08:00 Mechanical Ventilator Mechanical Ventilator 04/05/20 08:00 88 04/05/20 07:30 91 36 120/57 (78) 95 04/05/20 07:10 86 24 100 20 07:00 101/42 520 07:00 101/42 520 07:00 86 24 100/45 (63) 90 20 06:45 86 24 93/51 (65) 91 20 06:30 85 24 78/38 (51) 87 20 06:15 85 24 99/44 (62) 89 20 06:00 84 24 102/51 (68) 89 20 06:00 102/48 520/20 06:00 102/48 20 05:33 56/29 520 05:30 85 24 113/51 (71) 93 04/05/20 05:00 85 24 100/35 (56) 91 04/05/20 05:00 98/39 04/05/20 05:00 98/39 04/05/20 04:30 86 24 94/48 (63) 92 04/05/20 04:00 Mechanical Ventilator Mechanical Ventilator 04/05/20 04:00 98.3 86 24 89/41 (57) 90 04/05/20 04:00 87 04/05/20 04:00 96/49 04/05/20 04:00 96/49 04/05/20 04:00 100 04/05/20 03:30 86 24 96/44 (61) 90 04/05/20 03:00 85 24 89/48 (62) 80 04/05/20 02:59 56/29 04/05/20 02:31 98 24 100 04/05/20 02:30 85 24 102/50 (67) 89 04/05/20 02:00 84 24 56/29 (38) 88 04/05/20 02:00 101/56 04/05/20 01:15 87 32 101/48 (65) 89 04/05/20 01:00 87 32 101/35 (57) 88 04/05/20 01:00 109/52 04/05/20 01:00 109/52 04/05/20 00:45 88 29 114/54 (74) 85 04/05/20 00:43 107/41 04/05/20 00:30 88 32 109/48 (68) 89 04/05/20 00:15 89 30 107/41 (63) 90 04/05/20 00:00 102 04/05/20 00:00 Mechanical Ventilator Mechanical Ventilator 04/05/20 00:00 104/46 04/05/20 00:00 99.2 89 34 105/44 (64) 89 04/04/20 23:45 89 31 108/29 (55) 92 04/04/20 23:30 88 30 76/38 (51) 91 04/04/20 23:00 90 29 109/44 (65) 91 04/04/20 23:00 104/46 04/04/20 23:00 85/43 04/04/20 22:56 91 24 50 04/04/20 22:30 90 33 104/46 (65) 92 5/19/20 22:15 90 30 102/60 (74) 91 5/19/20 22:00 91 34 99/55 (70) 88 5/19/20 22:00 90/59 5/19/20 22:00 90/59 519/20 21:30 91 27 79/45 (56) 90 5/20 21:15 92 26 82/49 (60) 94 5/20 21:00 92 30 85/30 (48) 96 519/20 21:00 82/53 519/20 21:00 82/49 5/20 20:45 93 32 87/49 (62) 93 5/20 20:30 92 27 90/50 (63) 94 04/04/20 20:26 83/47 5/20 20:26 83/47 5/20 20:19 93 24 83/47 (59) 86 20 20:15 93 18 72/30 (44) 88 20 20:00 Mechanical Ventilator Mechanical Ventilator 20 20:00 93 20 20:00 80 519/20 20:00 85/56 519/20 20:00 85/56 5/20 20:00 101.0 93 26 85/56 (66) 95 04/04/20 19:15 93 24 98/42 (60) 95 04/04/20 19:10 97 24 50 5/20 19:00 93 24 88/51 (63) 96 04/04/20 19:00 93/50 5/20 19:00 93/50 5/20 18:30 94 24 95/55 (68) 96 519/20 18:00 89/56 519/20 18:00 89/56 519/20 18:00 94 26 96/57 (70) 96 04/04/20 17:30 94 29 98/53 (68) 95 519/20 17:22 90/41 5/20 17:11 94 24 91 Mechanical Ventilator 50 20 17:00 94 25 93/53 (66) 95 19/20 17:00 97/44 5/20 17:00 97/44 Intake and Output 04/04/20 04/05/20 19:00 07:00 Intake Total 2208.075 ml 1731.183 ml Output Total 390 ml 180 ml Balance 1818.075 ml 1551.183 ml IV Total 2208.075 ml 1731.183 ml Tube Feeding 0 ml 0 ml Output Urine Total 390 ml 180 ml # Bowel Movements 1 2D Echo: EF 60%, Mild LVH, Mild MR. RVSP 44 mmHg, Normal LVD Fxn Laboratory Tests Test 04/05/20 03:15 White Blood Count 12.3 K/UL (4.8-10.8) H Red Blood Count 2.48 M/UL (4.20-5.40) L Hemoglobin 9.1 G/DL (12.0-16.0) L Hematocrit 26.3 % (37.0-47.0) L Mean Corpuscular Volume 106 FL (80-99) H Mean Corpuscular Hemoglobin 36.5 PG (27.0-31.0) H Mean Corpuscular Hemoglobin Concent 34.5 G/DL (32.0-36.0) Red Cell Distribution Width 21.7 % (11.6-14.8) H Platelet Count 109 K/UL (150-450) L Mean Platelet Volume 8.6 FL (6.5-10.1) Neutrophils (%) (Auto) % (45.0-75.0) Lymphocytes (%) (Auto) % (20.0-45.0) Monocytes (%) (Auto) % (1.0-10.0) Eosinophils (%) (Auto) % (0.0-3.0) Basophils (%) (Auto) % (0.0-2.0) Sodium Level 128 MMOL/L (136-145) L Potassium Level 3.8 MMOL/L (3.5-5.1) Chloride Level 91 MMOL/L (98-107) L Carbon Dioxide Level 33 MMOL/L (21-32) H Anion Gap 4 mmol/L (5-15) L Blood Urea Nitrogen 54 mg/dL (7-18) H Creatinine 0.8 MG/DL (0.55-1.30) Estimat Glomerular Filtration Rate > 60 mL/min (>60) Glucose Level 146 MG/DL (74-106) H Calcium Level 7.7 MG/DL (8.5-10.1) L Total Bilirubin 1.8 MG/DL (0.2-1.0) H Direct Bilirubin 0.9 MG/DL (0.0-0.3) H Aspartate Amino Transf (AST/SGOT) 598 U/L (15-37) H Alanine Aminotransferase (ALT/SGPT) 212 U/L (12-78) H Alkaline Phosphatase 510 U/L (46-116) H Ammonia 117 umol/L (11-32) H Total Protein 5.9 G/DL (6.4-8.2) L Albumin 2.0 G/DL (3.4-5.0) L Globulin 3.9 g/dL Albumin/Globulin Ratio 0.5 (1.0-2.7) L Microbiology Date/Time Source Procedure Growth Status 04/02/20 23:25 Blood Blood Culture - Preliminary NO GROWTH AFTER 48 HOURS Resulted Objective HEENT: Atraumatic and normocephalic. Anicteric. Intubated. NECK: JVP cannot be assessed. No carotid bruit. + ETT. CARDIOVASCULAR: Normal S1, S2. Regular rate and rhythm. No murmurs, gallops, or rubs. PMI is at fourth intercostal space at left midclavicular line. LUNGS: Bibasilar crackles. ABDOMEN: Soft, nontender, and nondistended. No hepatosplenomegaly. Positive bowel sounds. EXTREMITIES: A 3+ edema bilaterally associated with erythema with blistering and crust formation of both feet. Berto Gonzalez MD April 05, 2020 17:02
[2020-04-05] MEDS: Dyna-Hex 2% Top Sol 2oz TOPIC SCH (19:57)
--- NOTE | 2020-04-05 21:24 | General Progress Note ---
Assessment/Plan Problem List: (1) Cellulitis ICD Codes: L03.90 - Cellulitis, unspecified SNOMED: [id number] Qualifiers: Qualified Codes: L03.119 - Cellulitis of unspecified part of limb Status: progressing, unchanged Assessment/Plan: respiratory failure eeg shows severe encephalopathy not much change have told family re futile care and to do comfort care and dnr instead hcv critical condition comatose brain encephalopathy ARF cirrhosis poor prognosis Subjective ROS Limited/Unobtainable: Yes Allergies: Coded Allergies: No Known Allergies (Unverified , 02/29/20) Objective Last 24 Hour Vital Signs Date Time Temp Pulse Resp B/P (MAP) Pulse Ox O2 Delivery O2 Flow Rate FiO2 04/05/20 20:00 100 04/05/20 20:00 Mechanical Ventilator Mechanical Ventilator 04/05/20 20:00 90 41 102/46 (64) 83 04/05/20 20:00 90 04/05/20 19:30 90 36 98/43 (61) 83 04/05/20 19:07 90 24 100 04/05/20 19:02 95/32 04/05/20 19:00 90 39 100/45 (63) 84 04/05/20 18:30 89 32 80/30 (47) 84 04/05/20 18:21 105/54 04/05/20 18:20 80/30 04/05/20 18:00 90 54 95/46 (62) 91 04/05/20 18:00 82/29 04/05/20 18:00 82/29 04/05/20 17:37 90 24 100 04/05/20 17:30 90 47 100/53 (69) 83 04/05/20 17:00 91 50 107/51 (69) 86 04/05/20 17:00 103/51 04/05/20 17:00 103/51 04/05/20 16:30 90 55 104/52 (69) 84 04/05/20 16:00 99.5 90 50 100/48 (65) 83 04/05/20 16:00 100 04/05/20 16:00 103/49 04/05/20 16:00 103/49 04/05/20 16:00 Mechanical Ventilator Mechanical Ventilator 04/05/20 15:46 90 04/05/20 15:30 90 41 105/54 (71) 83 04/05/20 15:07 104/49 5 15:01 88 24 100 04/05/20 15:00 126/41 5 15:00 126/41 04/05/20 15:00 88 41 98/43 (61) 88 04/05/20 14:30 89 43 104/49 (67) 86 04/05/20 14:00 99/47 04/05/20 14:00 99/47 04/05/20 14:00 90 38 97/48 (64) 86 04/05/20 13:28 47 40 100/48 (65) 88 04/05/20 13:00 100/48 04/05/20 13:00 100/48 04/05/20 13:00 89 40 95/44 (61) 88 04/05/20 12:30 88 33 94/48 (63) 91 04/05/20 12:00 80 04/05/20 12:00 89 41 100/48 (65) 91 04/05/20 12:00 Mechanical Ventilator Mechanical Ventilator 04/05/20 12:00 99.4 89 41 100/48 (65) 91 04/05/20 12:00 55/26 5 12:00 55/26 04/05/20 12:00 100 04/05/20 11:35 88 24 100 04/05/20 11:30 86 40 102/42 (62) 91 04/05/20 11:23 103/54 04/05/20 11:22 102/46 04/05/20 11:00 107/42 04/05/20 11:00 107/42 04/05/20 11:00 88 41 107/42 (63) 91 04/05/20 10:30 87 42 109/54 (72) 91 04/05/20 10:00 86 40 103/54 (70) 91 04/05/20 10:00 103/54 04/05/20 10:00 103/54 04/05/20 09:52 86 24 100 04/05/20 09:40 101/42 04/05/20 09:39 101/44 04/05/20 09:30 88 42 98/54 (69) 93 04/05/20 09:00 89 37 97/54 (68) 93 5/20/20 09:00 99/48 520 09:00 99/48 520/20 08:30 87 29 84/25 (44) 92 52020 08:22 101/42 52020 08:21 66/25 52020 08:00 100 52020 08:00 99.0 83 22 106/40 (62) 92 20 08:00 106/40 520 08:00 106/40 520 08:00 Mechanical Ventilator Mechanical Ventilator 04/05/20 08:00 88 52020 07:30 91 36 120/57 (78) 95 52020 07:10 86 24 100 5 07:00 101/42 520 07:00 101/42 5 07:00 86 24 100/45 (63) 90 04/05/20 06:45 86 24 93/51 (65) 91 20 06:30 85 24 78/38 (51) 87 20 06:15 85 24 99/44 (62) 89 2020 06:00 84 24 102/51 (68) 89 2020 06:00 102/48 520 06:00 102/48 04/05/20 05:33 56/29 520 05:30 85 24 113/51 (71) 93 20 05:00 85 24 100/35 (56) 91 20 05:00 98/39 52020 05:00 98/39 52020 04:30 86 24 94/48 (63) 92 20 04:00 Mechanical Ventilator Mechanical Ventilator 04/05/20 04:00 98.3 86 24 89/41 (57) 90 2020 04:00 87 52020 04:00 96/49 52020 04:00 96/49 52020 04:00 100 52020 03:30 86 24 96/44 (61) 90 20 03:00 85 24 89/48 (62) 80 52020 02:59 56/29 52020 02:31 98 24 100 520/20 02:30 85 24 102/50 (67) 89 04/05/20 02:00 84 24 56/29 (38) 88 04/05/20 02:00 101/56 04/05/20 01:15 87 32 101/48 (65) 89 04/05/20 01:00 87 32 101/35 (57) 88 04/05/20 01:00 109/52 04/05/20 01:00 109/52 04/05/20 00:45 88 29 114/54 (74) 85 04/05/20 00:43 107/41 04/05/20 00:30 88 32 109/48 (68) 89 04/05/20 00:15 89 30 107/41 (63) 90 04/05/20 00:00 102 04/05/20 00:00 Mechanical Ventilator Mechanical Ventilator 04/05/20 00:00 104/46 04/05/20 00:00 99.2 89 34 105/44 (64) 89 04/04/20 23:45 89 31 108/29 (55) 92 04/04/20 23:30 88 30 76/38 (51) 91 04/04/20 23:00 90 29 109/44 (65) 91 04/04/20 23:00 104/46 04/04/20 23:00 85/43 04/04/20 22:56 91 24 50 04/04/20 22:30 90 33 104/46 (65) 92 04/04/20 22:15 90 30 102/60 (74) 91 04/04/20 22:00 91 34 99/55 (70) 88 04/04/20 22:00 90/59 04/04/20 22:00 90/59 04/04/20 21:30 91 27 79/45 (56) 90 Intake and Output 04/04/20 04/05/20 19:00 07:00 Intake Total 2208.075 ml 1731.183 ml Output Total 390 ml 180 ml Balance 1818.075 ml 1551.183 ml IV Total 2208.075 ml 1731.183 ml Tube Feeding 0 ml 0 ml Output Urine Total 390 ml 180 ml # Bowel Movements 1 Laboratory Tests 04/05/20 03:15: White Blood Count 12.3H, Red Blood Count 2.48L, Hemoglobin 9.1L, Hematocrit 26.3L, Mean Corpuscular Volume 106H, Mean Corpuscular Hemoglobin 36.5H, Mean Corpuscular Hemoglobin Concent 34.5, Red Cell Distribution Width 21.7H, Platelet Count 109L, Mean Platelet Volume 8.6, Neutrophils (%) (Auto) , Lymphocytes (%) (Auto) , Monocytes (%) (Auto) , Eosinophils (%) (Auto) , Basophils (%) (Auto) , Sodium Level 128L, Potassium Level 3.8, Chloride Level 91L, Carbon Dioxide Level 33H, Anion Gap 4L, Blood Urea Nitrogen 54H, Creatinine 0.8, Estimat Glomerular Filtration Rate > 60, Glucose Level 146H, Calcium Level 7.7L, Total Bilirubin 1.8H, Direct Bilirubin 0.9H, Aspartate Amino Transf (AST/SGOT) 598H, Alanine Aminotransferase (ALT/SGPT) 212H, Alkaline Phosphatase 510H, Ammonia 117H, Total Protein 5.9L, Albumin 2.0L, Globulin 3.9, Albumin/Globulin Ratio 0.5L Height (Feet): 5 Height (Inches): 1.00 Weight (Pounds): 228 Celso Moreno MD April 05, 2020 21:24
[2020-04-06] VITALS (56 sets, daily range): BP systolic 62–112; BP diastolic 31–62
--- NOTE | 2020-04-06 | Pulmonolgy Critical Care Note ---
Critical Care - Asmt/Plan Assessment/Plan: Pulmonary CCM Progress Note HPI Patient is a 59 year old woman with severe COVID 19 Pneumonia, past history of significant obesity, cirrhosis, bilateral lower extremity swelling, cellulitis Persistent severe respiratory failure. Patient had previous hospitalizations for cellulitis. PMH Hypothyroidism, Obesity, Cirrhosis, Anemia, Anxiety, Cellulitis Remains unresponsive off sedation > 48 hours, pupils dilated, minimally reactive to pain, non purposeful, not triggering ventilator, CT Head pending, not performed as COVID-19 positive. Neurology consulted. EEG severe encephalopathy Previous VQ no significant perfusion abnormality, prev LE dupplex negative, had high DDimer On three pressors Did not tolerating Proning Worsening PaO2/FIO2, P 16, FIO2 100%%, has elevated PaCO2 Renal following Hypothyroidism, elevated glucose, Endocrine following, low 9:00 AM Cort[facility] previously - Remdesavir requested for when available, [facility] - not available as yet Previously received IL6 inhibitor inititial dose (4mg/Kg - all that was available), subsequent dose pending, previously on steroids See earlier on 04/05/2020 Allergies: No Known Allergies Past Medical History: Obesity, Cirrhosis, Anemia, Anxiety, Cellulitis, Hypothyroidism All Other Systems: negative except mentioned in HPI Physical Exam Vital Signs Noted General Appearance: Obese, no reaction to pain despite no sedation, intubated Head: normocephalic, atraumatic Eyes: pupils dilated and non responsive to light bilaterally ENT: moist MM, no LN Respiratory: Bilateral crackles, bilateral rhonchi, not overbreathing the ventilator Cardiovascular: regular rate, rhythm, HS1, HS2 RRR Gastrointestinal: Obese, soft non tender, ND Musculoskeletal: Mild edema and erythema bilateral lower extremity, patient has crusting on both feet, Neurologic: non responsive, no focal signs noted, no seizures, no response to pain Impression: Covid Pneumonia, s/p IL6 inhibitor, sp Hydroxychloroquine, Ivermectin Severe Respiratory Failure, high PEEP Persistent hypoxia, worsening PCO2 Bilateral dilated non reactive pupils, patient minimally responsive despite no sedation Not triggering ventilator currently Minimal response to pain Increased WCC - ID following ID following Bilateral Lower Extremity Cellulitis on admission Elevated NPA, severe bilateral edema - improving Cirrhosis, elevated transaminases/ammonia Splenomegaly Anemia Hypothyroidism Extremely poor prognosis Plan Neurology Consultated/CT head pending IV Antibiotics per ID S/p trial of steroids - currently 10 mg daily, being weaned to off, s/p IL6 inhibitor previously Surgery following for wounds Hematology following for anemia, observing for Neutropenia/thrombocytopenia Renal following for hypernatremia/volume status Endocrine following for Hypothyroidism, on ISS Monitor labs Bronchodilators PPX - SCD AC VC Proning PRN Supplement electrolytes PRN Albuterol PRN 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 Previously d/w Patients daughter Tri - discussed grave prognosis, possibility of patient having had possible stroke/IC event, suggested DNAR - wants full code Case d/w RN Previously [facility] - Remdesavir ordered, awaiting supply Labs Noted Chest X-Ray: Cardiomegaly, left lower lobe atelectasis versus effusion, worsening infiltrates/congestion Subjective ROS Limited/Unobtainable: No Constitutional: Reports: no symptoms Gastrointestinal/Abdominal: Reports: no symptoms Musculoskeletal: Reports: other - SOB Allergies: Coded Allergies: No Known Allergies (Unverified , 02/29/20) ICU time 50 minutes Critical Care - Objective Last 24 Hour Vital Signs Date Time Temp Pulse Resp B/P (MAP) Pulse Ox O2 Delivery O2 Flow Rate FiO2 04/05/20 23:00 103/43 04/05/20 23:00 103/43 04/05/20 23:00 103/43 04/05/20 23:00 91 31 103/43 (63) 73 04/05/20 22:46 92 24 100 04/05/20 22:00 92 33 100/49 (66) 79 04/05/20 22:00 109/50 04/05/20 22:00 109/50 04/05/20 21:30 90 35 106/48 (67) 79 04/05/20 21:00 90 30 100/46 (64) 80 04/05/20 21:00 97/42 04/05/20 21:00 97/42 04/05/20 20:30 90 39 99/45 (63) 81 04/05/20 20:00 100 04/05/20 20:00 Mechanical Ventilator Mechanical Ventilator 04/05/20 20:00 90 41 102/46 (64) 83 04/05/20 20:00 93/46 04/05/20 20:00 93/46 04/05/20 20:00 90 04/05/20 19:30 90 36 98/43 (61) 83 04/05/20 19:07 90 24 100 5/20/20 19:02 95/32 52020 19:00 90 39 100/45 (63) 84 52020 18:30 89 32 80/30 (47) 84 52020 18:21 105/54 5/2020 18:20 80/30 52020 18:00 90 54 95/46 (62) 91 2020 18:00 82/29 520 18:00 82/29 20 17:37 90 24 100 520 17:30 90 47 100/53 (69) 83 20 17:00 91 50 107/51 (69) 86 20 17:00 103/51 04/05/20 17:00 103/51 04/05/20 16:30 90 55 104/52 (69) 84 04/05/20 16:00 99.5 90 50 100/48 (65) 83 04/05/20 16:00 100 04/05/20 16:00 103/49 04/05/20 16:00 103/49 04/05/20 16:00 Mechanical Ventilator Mechanical Ventilator 04/05/20 15:46 90 04/05/20 15:30 90 41 105/54 (71) 83 04/05/20 15:07 104/49 04/05/20 15:01 88 24 100 04/05/20 15:00 126/41 04/05/20 15:00 126/41 04/05/20 15:00 88 41 98/43 (61) 88 04/05/20 14:30 89 43 104/49 (67) 86 04/05/20 14:00 99/47 520 14:00 99/47 04/05/20 14:00 90 38 97/48 (64) 86 20 13:28 47 40 100/48 (65) 88 04/05/20 13:00 100/48 04/05/20 13:00 100/48 04/05/20 13:00 89 40 95/44 (61) 88 04/05/20 12:30 88 33 94/48 (63) 91 04/05/20 12:00 80 04/05/20 12:00 89 41 100/48 (65) 91 5/20/20 12:00 Mechanical Ventilator Mechanical Ventilator 04/05/20 12:00 99.4 89 41 100/48 (65) 91 04/05/20 12:00 55/26 520 12:00 55/26 5 12:00 100 520 11:35 88 24 100 520 11:30 86 40 102/42 (62) 91 04/05/20 11:23 103/54 52020 11:22 102/46 5 11:00 107/42 5 11:00 107/42 5 11:00 88 41 107/42 (63) 91 04/05/20 10:30 87 42 109/54 (72) 91 04/05/20 10:00 86 40 103/54 (70) 91 04/05/20 10:00 103/54 5 10:00 103/54 04/05/20 09:52 86 24 100 04/05/20 09:40 101/42 04/05/20 09:39 101/44 5 09:30 88 42 98/54 (69) 93 04/05/20 09:00 89 37 97/54 (68) 93 04/05/20 09:00 99/48 5 09:00 99/48 5 08:30 87 29 84/25 (44) 92 04/05/20 08:22 101/42 520 08:21 66/25 520 08:00 100 04/05/20 08:00 99.0 83 22 106/40 (62) 92 04/05/20 08:00 106/40 520 08:00 106/40 520 08:00 Mechanical Ventilator Mechanical Ventilator 04/05/20 08:00 88 04/05/20 07:30 91 36 120/57 (78) 95 04/05/20 07:10 86 24 100 5 07:00 101/42 52020 07:00 101/42 520 07:00 86 24 100/45 (63) 90 04/05/20 06:45 86 24 93/51 (65) 91 04/05/20 06:30 85 24 78/38 (51) 87 520 06:15 85 24 99/44 (62) 89 04/05/20 06:00 84 24 102/51 (68) 89 04/05/20 06:00 102/48 04/05/20 06:00 102/48 04/05/20 05:33 56/29 5 05:30 85 24 113/51 (71) 93 04/05/20 05:00 85 24 100/35 (56) 91 04/05/20 05:00 98/39 04/05/20 05:00 98/39 04/05/20 04:30 86 24 94/48 (63) 92 04/05/20 04:00 Mechanical Ventilator Mechanical Ventilator 04/05/20 04:00 98.3 86 24 89/41 (57) 90 04/05/20 04:00 87 04/05/20 04:00 96/49 04/05/20 04:00 96/49 04/05/20 04:00 100 04/05/20 03:30 86 24 96/44 (61) 90 04/05/20 03:00 85 24 89/48 (62) 80 04/05/20 02:59 56/29 04/05/20 02:31 98 24 100 04/05/20 02:30 85 24 102/50 (67) 89 04/05/20 02:00 84 24 56/29 (38) 88 04/05/20 02:00 101/56 04/05/20 01:15 87 32 101/48 (65) 89 04/05/20 01:00 87 32 101/35 (57) 88 04/05/20 01:00 109/52 04/05/20 01:00 109/52 04/05/20 00:45 88 29 114/54 (74) 85 04/05/20 00:43 107/41 04/05/20 00:30 88 32 109/48 (68) 89 04/05/20 00:15 89 30 107/41 (63) 90 Accucheck: 144 Critical Care - Subjective ROS Limited/Unobtainable: No Condition: critical IV Access: PICC FI02: 100 Vent Support Breath Rate: 24 Vent Support Mode: AC Vent Tidal Volume: 400 Sputum Amount: Moderate PEEP: 16.0 PIP: 40 Tube Feeding Amount: 0 I&O: Intake and Output 04/05/20 04/06/20 19:00 07:00 Intake Total 1996.421 ml 764.508 ml Output Total 350 ml 180 ml Balance 1646.421 ml 584.508 ml Free Water 90 ml IV Total 1906.421 ml 764.508 ml Tube Feeding 0 ml 0 ml Output Urine Total 350 ml 180 ml # Bowel Movements 1 ET-Tube: 7.5 ET Position: 21 Doron Carrillo MD April 06, 2020 00:00
[2020-04-06] MEDS: DOPamine 400mg/250ml 250 ML IV SCH ×8 (00:37→22:16)
[2020-04-06] MEDS: Phenylephrine 50 MG in D5W 245 ML IV SCH ×4 (01:27→13:56)
--- NOTE | 2020-04-06 02:21 | Diagnostic Imaging Report ---
EXAM: XR Chest, 1 View CLINICAL HISTORY: SOB TECHNIQUE: Frontal view of the chest. COMPARISON: 04/03/2020 IMPRESSION: Cardiomegaly. Right-sided pleural effusion. Unchanged vascular congestion. ET tube terminates 1.7 cm from the mike. NG tube terminates in the distal stomach.
[2020-04-06] MEDS: Norepinephrine Bitartrate 16 MG in D5W 500ml 550 ML IV SCH ×3 (03:00→20:23)
[2020-04-06] MEDS: Acetaminophen 650mg/20.3ml NG PRN ×2 (03:09→08:46)
[2020-04-06 04:57] LABS: BASOPHILS % (AUTO) 0.4 % (0.0-2.0); EOSINOPHILS % (AUTO) 5.7 % (0.0-3.0); HEMOGLOBIN 8.7 G/DL (12.0-16.0); LYMPHOCYTES % (AUTO) 8.8 % (20.0-45.0); MEAN CORPUSCULAR VOLUME 105 FL (80-99); MONOCYTES % (AUTO) 2.4 % (1.0-10.0); NEUTROPHILS % (AUTO) 82.7 % (45.0-75.0); PLATELET COUNT 106 K/UL (150-450); RED BLOOD COUNT 2.39 M/UL (4.20-5.40); RED CELL DISTRIBUTION WIDTH 21.2 % (11.6-14.8); WHITE BLOOD COUNT 13.8 K/UL (4.8-10.8)
[2020-04-06] MEDS: Lactulose 20gm/30ml UDC ORAL SCH ×3 (05:04→20:23)
[2020-04-06] MEDS: Metoclopramide 10mg/2ml Inj IVP SCH ×4 (05:04→20:23)
[2020-04-06] MEDS: Meropenem 1 GM in NS 55 ML IVPB SCH ×3 (05:07→20:23)
[2020-04-06 05:29] LABS: ALANINE AMINOTRANSFERASE 158 U/L (12-78); ALBUMIN 1.9 G/DL (3.4-5.0); ALBUMIN/GLOBULIN RATIO 0.5 (1.0-2.7); ALKALINE PHOSPHATASE 471 U/L (46-116); ANION GAP 3 mmol/L (5-15); ASPARTATE AMINO TRANSFERASE 460 U/L (15-37); BILIRUBIN,TOTAL 1.7 MG/DL (0.2-1.0); BLOOD UREA NITROGEN 56 mg/dL (7-18); CALCIUM 7.3 MG/DL (8.5-10.1); CARBON DIOXIDE 32 MMOL/L (21-32); CHLORIDE 91 MMOL/L (98-107); CREATININE 0.7 MG/DL (0.55-1.30); PHOSPHORUS 5.3 MG/DL (2.5-4.9); POTASSIUM 3.8 MMOL/L (3.5-5.1); SODIUM 126 MMOL/L (136-145)
[2020-04-06] MEDS: Vancomycin 500 MG in NS 110 ML IVPB SCH ×2 (05:50→17:04)
[2020-04-06] MEDS: NovoLOG Insulin Flexpen SUBQ SCH ×3 (05:59→17:47)
[2020-04-06 06:18] LABS: BILIRUBIN,DIRECT 0.9 MG/DL (0.0-0.3)
--- NOTE | 2020-04-06 07:25 | General Progress Note ---
Assessment/Plan Problem List: (1) Hypothyroid ICD Codes: E03.9 - Hypothyroidism, unspecified SNOMED: 88555749 (2) COVID-19 ICD Codes: U07.1 - COVID-19 SNOMED: 222319522 (3) Respiratory failure with hypoxia ICD Codes: J96.91 - Respiratory failure, unspecified with hypoxia SNOMED: 38730924487766568 Qualifiers: Qualified Codes: J96.01 - Acute respiratory failure with hypoxia (4) Cellulitis ICD Codes: L03.90 - Cellulitis, unspecified SNOMED: 089938495 Qualifiers: Qualified Codes: L03.119 - Cellulitis of unspecified part of limb (5) Hyperglycemia ICD Codes: R73.9 - Hyperglycemia, unspecified SNOMED: 16640562 Status: progressing, unchanged Assessment/Plan: no need for basal insulin continue Novolog sliding scale every 6 hours TSH normalized continue Levothyroxine 50 mcg IV every other day Subjective ROS Limited/Unobtainable: Yes Allergies: Coded Allergies: No Known Allergies (Unverified , 02/29/20) Subjective events noted - interval notes reviewed comatose glucose values are stable Item Value Date Time Bedside Blood Glucose 123 mg/dl H 04/06/20 0559 Bedside Blood Glucose 144 mg/dl H 04/05/20 2353 Bedside Blood Glucose 132 mg/dl H 04/05/20 1800 Bedside Blood Glucose 154 mg/dl H 04/05/20 1153 Bedside Blood Glucose 142 mg/dl H 04/05/20 0533 Objective Last 24 Hour Vital Signs Date Time Temp Pulse Resp B/P (MAP) Pulse Ox O2 Delivery O2 Flow Rate FiO2 04/06/20 07:18 91 24 100 04/06/20 06:00 101/47 04/06/20 06:00 101/47 04/06/20 06:00 90 37 101/47 (65) 90 04/06/20 05:58 94/48 04/06/20 05:30 91 39 106/50 (68) 89 04/06/20 05:06 91 100/46 04/06/20 05:00 91 44 100/46 (64) 91 04/06/20 05:00 105/48 04/06/20 05:00 105/48 04/06/20 04:30 91 37 104/44 (64) 91 04/06/20 04:00 100 04/06/20 04:00 91 04/06/20 04:00 Mechanical Ventilator Mechanical Ventilator 04/06/20 04:00 102/48 04/06/20 04:00 102/48 04/06/20 04:00 100.5 91 35 102/48 (66) 92 04/06/20 03:39 100.5 04/06/20 03:30 91 38 103/48 (66) 91 04/06/20 03:15 91 41 103/43 (63) 92 04/06/20 03:14 97/40 04/06/20 03:02 91 25 100 04/06/20 03:00 90 33 97/40 (59) 91 04/06/20 03:00 97/40 04/06/20 03:00 97/40 04/06/20 03:00 97/40 04/06/20 02:30 91 38 102/41 (61) 93 04/06/20 02:00 91 34 112/40 (64) 93 04/06/20 02:00 112/40 04/06/20 02:00 112/40 04/06/20 01:45 90 32 93/44 (60) 92 04/06/20 01:30 90 31 96/45 (62) 92 04/06/20 01:27 90 82/42 04/06/20 01:00 90 32 91/44 (60) 92 04/06/20 01:00 82/42 04/06/20 01:00 91/44 04/06/20 01:00 91/44 04/06/20 01:00 82/42 04/06/20 00:37 65/33 04/06/20 00:30 90 27 99/49 (66) 90 04/06/20 00:00 100 04/06/20 00:00 96/47 04/06/20 00:00 96/47 04/06/20 00:00 91 04/06/20 00:00 Mechanical Ventilator Mechanical Ventilator 04/06/20 00:00 100.1 91 36 96/47 (63) 74 04/05/20 23:00 103/43 04/05/20 23:00 103/43 04/05/20 23:00 103/43 04/05/20 23:00 91 31 103/43 (63) 73 5/20/20 22:46 92 24 100 5/20/20 22:00 92 33 100/49 (66) 79 5/20/20 22:00 109/50 5/20/20 22:00 109/50 5/20/20 21:30 90 35 106/48 (67) 79 5/20/20 21:00 90 30 100/46 (64) 80 5/20/20 21:00 97/42 5/20/20 21:00 97/42 5/20/20 20:30 90 39 99/45 (63) 81 5/20/20 20:00 100 5/20/20 20:00 Mechanical Ventilator Mechanical Ventilator 520/20 20:00 99.9 90 41 102/46 (64) 83 5/20/20 20:00 93/46 5/20/20 20:00 93/46 5/20/20 20:00 90 5/20/20 19:30 90 36 98/43 (61) 83 5/20/20 19:07 90 24 100 5/20/20 19:02 95/32 5/20/20 19:00 90 39 100/45 (63) 84 5/20/20 18:30 89 32 80/30 (47) 84 5/20/20 18:21 105/54 5/20/20 18:20 80/30 5/20/20 18:00 90 54 95/46 (62) 91 5/20/20 18:00 82/29 5/20/20 18:00 82/29 5/20/20 17:37 90 24 100 5/20/20 17:30 90 47 100/53 (69) 83 5/20/20 17:00 91 50 107/51 (69) 86 5/20/20 17:00 103/51 5/20/20 17:00 103/51 5/20/20 16:30 90 55 104/52 (69) 84 5/20/20 16:00 99.5 90 50 100/48 (65) 83 5/20/20 16:00 100 5/20/20 16:00 103/49 5/20/20 16:00 103/49 5/20/20 16:00 Mechanical Ventilator Mechanical Ventilator 2020 15:46 90 5/20/20 15:30 90 41 105/54 (71) 83 5/20/20 15:07 104/49 5 15:01 88 24 100 04/05/20 15:00 126/41 5 15:00 126/41 04/05/20 15:00 88 41 98/43 (61) 88 04/05/20 14:30 89 43 104/49 (67) 86 04/05/20 14:00 99/47 04/05/20 14:00 99/47 04/05/20 14:00 90 38 97/48 (64) 86 04/05/20 13:28 47 40 100/48 (65) 88 04/05/20 13:00 100/48 04/05/20 13:00 100/48 04/05/20 13:00 89 40 95/44 (61) 88 04/05/20 12:30 88 33 94/48 (63) 91 04/05/20 12:00 80 04/05/20 12:00 89 41 100/48 (65) 91 04/05/20 12:00 Mechanical Ventilator Mechanical Ventilator 04/05/20 12:00 99.4 89 41 100/48 (65) 91 04/05/20 12:00 55/26 5 12:00 55/26 04/05/20 12:00 100 04/05/20 11:35 88 24 100 04/05/20 11:30 86 40 102/42 (62) 91 04/05/20 11:23 103/54 04/05/20 11:22 102/46 04/05/20 11:00 107/42 04/05/20 11:00 107/42 04/05/20 11:00 88 41 107/42 (63) 91 04/05/20 10:30 87 42 109/54 (72) 91 04/05/20 10:00 86 40 103/54 (70) 91 04/05/20 10:00 103/54 04/05/20 10:00 103/54 04/05/20 09:52 86 24 100 04/05/20 09:40 101/42 04/05/20 09:39 101/44 04/05/20 09:30 88 42 98/54 (69) 93 04/05/20 09:00 89 37 97/54 (68) 93 04/05/20 09:00 99/48 04/05/20 09:00 99/48 04/05/20 08:30 87 29 84/25 (44) 92 04/05/20 08:22 101/42 04/05/20 08:21 66/25 04/05/20 08:00 100 04/05/20 08:00 99.0 83 22 106/40 (62) 92 04/05/20 08:00 106/40 04/05/20 08:00 106/40 04/05/20 08:00 Mechanical Ventilator Mechanical Ventilator 04/05/20 08:00 88 04/05/20 07:30 91 36 120/57 (78) 95 Intake and Output 04/05/20 04/06/20 19:00 07:00 Intake Total 1996.421 ml 2526.204 ml Output Total 370 ml 415 ml Balance 1626.421 ml 2111.204 ml Free Water 90 ml 90 ml IV Total 1906.421 ml 2436.204 ml Tube Feeding 0 ml 0 ml Output Urine Total 370 ml 415 ml # Bowel Movements 1 Laboratory Tests 04/06/20 03:20: White Blood Count 13.8H, Red Blood Count 2.39L, Hemoglobin 8.7L, Hematocrit 25.0L, Mean Corpuscular Volume 105H, Mean Corpuscular Hemoglobin 36.5H, Mean Corpuscular Hemoglobin Concent 34.9, Red Cell Distribution Width 21.2H, Platelet Count 106L, Mean Platelet Volume 9.3, Neutrophils (%) (Auto) 82.7H, Lymphocytes (%) (Auto) 8.8L, Monocytes (%) (Auto) 2.4, Eosinophils (%) (Auto) 5.7H, Basophils (%) (Auto) 0.4, Sodium Level 126L, Potassium Level 3.8, Chloride Level 91L, Carbon Dioxide Level 32, Anion Gap 3L, Blood Urea Nitrogen 56H, Creatinine 0.7, Estimat Glomerular Filtration Rate > 60, Glucose Level 143H , Uric Acid 11.5H, Calcium Level 7.3L, Phosphorus Level 5.3H, Magnesium Level 2.3, Total Bilirubin 1.7H, Direct Bilirubin 0.9H, Aspartate Amino Transf (AST/ SGOT) 460H, Alanine Aminotransferase (ALT/SGPT) 158H, Alkaline Phosphatase 471H , C-Reactive Protein, Quantitative 5.4H, Pro-B-Type Natriuretic Peptide 2187H, Total Protein 5.5L, Albumin 1.9L, Globulin 3.6, Albumin/Globulin Ratio 0.5L Height (Feet): 5 Height (Inches): 1.00 Weight (Pounds): 230 General Appearance: other - comatose Neck: normal alignment Cardiovascular: normal rate Respiratory/Chest: decreased breath sounds Abdomen: normal bowel sounds Objective Current Medications Medications (Trade) Dose Ordered Sig/Dolores Route PRN Reason Start Time Stop Time Status Last Admin Dose Admin Acetaminophen (Tylenol) 650 mg Q4H PRN NG Temp >100.5 04/01/20 22:00 05/01/20 21:59 04/06/20 03:09 Acetaminophen (Tylenol) 650 mg Q4H PRN ORAL Mild Pain (Pain Scale 1-3) 03/13/20 14:53 04/12/20 14:52 04/01/20 21:26 Allopurinol (allopurinoL) 300 mg DAILY NG 04/04/20 10:32 05/04/20 10:31 04/05/20 08:21 Chlorhexidine Gluconate (Lucretia-Hex 2%) 1 applic DAILY@2000 TOPIC 03/13/20 20:00 06/11/20 19:59 04/05/20 19:57 Dextrose (Dextrose 50%) 25 ml Q30M PRN IV Hypoglycemia 04/03/20 00:00 07/02/20 00:00 Dextrose (Dextrose 50%) 50 ml Q30M PRN IV Hypoglycemia 04/03/20 00:00 07/02/20 00:00 Dopamine HCl/ Dextrose 250 ml @ 0 mls/hr Q24H IV 03/16/20 19:30 06/14/20 19:29 04/06/20 05:58 Fluconazole (Diflucan) 200 mg DAILY NG 03/31/20 11:00 04/07/20 10:59 04/05/20 08:21 Hydralazine HCl (Apresoline) 10 mg Q6H PRN IV For High Blood Pressure 03/24/20 16:45 06/22/20 16:44 Insulin Aspart (NovoLOG) Q6HR SUBQ 04/03/20 00:00 07/02/20 00:00 04/05/20 23:53 Lactulose (Cephulac) 40 gm Q8HR ORAL 04/01/20 14:00 04/30/20 17:59 04/06/20 05:04 Levothyroxine Sodium (Synthroid) 50 mcg QOD IV 04/05/20 09:00 04/17/20 11:59 04/05/20 09:40 Meropenem 1 gm/ Sodium Chloride 55 ml @ 110 mls/hr Q8HR IVPB 03/29/20 14:00 04/07/20 13:59 04/06/20 05:07 Metoclopramide HCl (Reglan) 10 mg EVERY 6 HOURS IVP 04/04/20 12:00 05/04/20 11:59 04/06/20 05:04 Midodrine (Pro-Amatine) 10 mg THREE TIMES A DAY NG 03/27/20 09:00 06/20/20 12:29 04/05/20 18:00 Norepinephrine Bitartrate 16 mg/ Dextrose 566 ml @ 0 mls/hr Q24H IV 04/04/20 23:00 05/04/20 22:59 04/06/20 03:00 Phenylephrine HCl 50 mg/Dextrose 250 ml @ 0 mls/hr Q24H IV 04/06/20 01:30 05/06/20 01:29 04/06/20 05:06 Vancomycin HCl (Vanco rx to dose) 1 ea DAILY PRN MISC Per rx protocol 04/02/20 11:00 05/02/20 10:59 Vancomycin HCl 500 mg/Sodium Chloride 110 ml @ 110 mls/hr Q12HR@0600,1800 IVPB 04/02/20 18:00 04/07/20 17:59 04/06/20 05:50 Vasopressin 100 units/Sodium Chloride 100 ml @ 0 mls/hr Q24H PRN IV For hypotension 03/16/20 11:00 04/15/20 10:59 04/04/20 21:31 Johan Christopher MD April 06, 2020 07:25
--- NOTE | 2020-04-06 08:24 | Hematology/Onc Progress Note ---
Assessment/Plan Assessment/Plan Assessment and Recs # Pancytopenia -- multiple etiologies could be related to underlying liver disease, medication-induced, infection versus viral syndrome versus underlying bone marrow cause, in this case, has severe liver disease and cirrhosis, HEP C++ , also cellulitis, COVID19++ --> peripheral smear has been ordered and does not show significant abnormalities and none noted --> Medications have been reviewed --> Continue to monitor for improvement, trend cbc --> Hep panel and HIV are both negative --> US abd ordered to r/o cirrhosis and hepatosplenomegaly ->CIRRHOSIS IS NOTED , LARGE SPLEEN --> reverse isolation if ANC is <2000 --> Give neupogen if ANC <1000 --> Transfuse if hgb <7, with 1 unit prbc --> anemia panel ordered as well-->CW acd --> hgb trend 7-->7.1-->8.4-->8.2 -->8.7-->9.9-->9.2-->9.5-->9.1-->10.1 -->9--> 8.9 --> plt 145k-->152-->162k-->149k-->121k-->171k-->149-->163-->135-->100 --> wbc 3.4-->3.5->3.9->4.4-->11-->10.8 -->15->23-->26-->27-->26.7 -->14.3 --> abx: sameer/rifaximin-->levaquin /vanc-->sameer/vanc # Leukocytosis with Cellulitis of the lower extremities --> continue abx as needed as per id --> Started on IV antibiotics-->azithro/cefepime-->levaquin-->sameer/vanc --> as per surg recs, wound care --> on steriods at this time, likely contributor # Ftt --> remains on mirtazapine --> daily weights # Elevated LFTS --> as per gi --> due to cirrhosis # Respiratory failure --> s/p intubation 03/16 --> prone positioning as needed by pulm # Dvt ppx lovenox sq # Prognosis is poor The timing of this note does not necessarily reflect the time of the patient was seen. Greatly appreciate consultation. Subjective Allergies: Coded Allergies: No Known Allergies (Unverified , 02/29/20) Subjective 03/02 no events, no bleeding, hgb 7.1, no hemolysis 03/03 s/p blood, hgb improved to 8.4, stool ob negtive, on abx 03/05 asleep, no acute distress, hgb 8.2 03/06 remains comfortable, on abx, plt remains low 03/07 is on nonrebreather, no night sweats, labs are noted 03/08 labs reviewed, being diuresed, seen by cards, psych, labs noted 03/09 lasix adjusted, wbc remains low at 3.9, reviewed meds, smear 03/10 no night sweats, no bleeding, labs noted, smear noted 03/12 labs noted, none completed, have reordered, cellulitis better 03/13 is continuing with chest pain, cards aware, no further studies until covid neg 03/14 labs noted, no bleeding, diuresis as needed, hgb stable 03/15 alseep is cooperative, no bleeding, meds noted 03/16 no bleeding or chills, hgb 10.8, no night sweats, no major events 03/17 now intubated, no bleeding, labs noted, dw rn 03/19 remains intubated, no bleeding, labs noted, on pressors 03/20 prone posiition, seen by gi and renal, nob leeding, hgb 10.1 03/21 sedated, remains agitated, pulling on 2p restraints, no bleeding 03/22 icu, h/h stable, finished plaq/zithro, no acute distress 03/23 in icu, remains restless no bleeding, labs noted, no bleeding 03/24 in icu, poor prognosis, no night sweats, no fc 03/26 on vent, unresponsive, no bleeding, wbc high is on abx and steriods 03/27 remains on vent, ngt, no bleeding, already on abx on steriods 03/28 labs noted, no bleeding, wbc 23k, hgb 9, still with ongoing leukocytosis, ngt feeds 03/29 icu, started on sameer, steroids being tapered, wbc 26.4, no sob 03/30 no major changes, in icu, resp distress, on vent, wbc remains elevated 03/31 picc intact, wbc 26, amonia 104, no sob, continues on steroids 04/02 icu, nonverbal, vent, no distress 04/03 remains comotose is on vent, and pressors, no bleeding, dw rn in icu 04/04 no new changes, no acute distress 04/05 no overnight events, nonverbal, labs reviewed 04/06 no overnight events, icu, vent, no distress Objective Objective Current Medications Medications (Trade) Dose Ordered Sig/Dolores Route PRN Reason Start Time Stop Time Status Last Admin Dose Admin Acetaminophen (Tylenol) 650 mg Q4H PRN NG Temp >100.5 04/01/20 22:00 05/01/20 21:59 04/06/20 03:09 Acetaminophen (Tylenol) 650 mg Q4H PRN ORAL Mild Pain (Pain Scale 1-3) 03/13/20 14:53 04/12/20 14:52 04/01/20 21:26 Allopurinol (allopurinoL) 300 mg DAILY NG 04/04/20 10:32 05/04/20 10:31 04/05/20 08:21 Chlorhexidine Gluconate (Lucretia-Hex 2%) 1 applic DAILY@2000 TOPIC 03/13/20 20:00 06/11/20 19:59 04/05/20 19:57 Dextrose (Dextrose 50%) 25 ml Q30M PRN IV Hypoglycemia 04/03/20 00:00 07/02/20 00:00 Dextrose (Dextrose 50%) 50 ml Q30M PRN IV Hypoglycemia 04/03/20 00:00 07/02/20 00:00 Dopamine HCl/ Dextrose 250 ml @ 0 mls/hr Q24H IV 03/16/20 19:30 06/14/20 19:29 04/06/20 05:58 Fluconazole (Diflucan) 200 mg DAILY NG 03/31/20 11:00 04/11/20 10:59 04/05/20 08:21 Hydralazine HCl (Apresoline) 10 mg Q6H PRN IV For High Blood Pressure 03/24/20 16:45 06/22/20 16:44 Insulin Aspart (NovoLOG) Q6HR SUBQ 04/03/20 00:00 07/02/20 00:00 04/05/20 23:53 Lactulose (Cephulac) 40 gm Q8HR ORAL 04/01/20 14:00 04/30/20 17:59 04/06/20 05:04 Levothyroxine Sodium (Synthroid) 50 mcg QOD IV 04/05/20 09:00 04/17/20 11:59 04/05/20 09:40 Meropenem 1 gm/ Sodium Chloride 55 ml @ 110 mls/hr Q8HR IVPB 03/29/20 14:00 04/11/20 13:59 04/06/20 05:07 Metoclopramide HCl (Reglan) 10 mg EVERY 6 HOURS IVP 04/04/20 12:00 05/04/20 11:59 04/06/20 05:04 Midodrine (Pro-Amatine) 10 mg THREE TIMES A DAY NG 03/27/20 09:00 06/20/20 12:29 04/05/20 18:00 Norepinephrine Bitartrate 16 mg/ Dextrose 566 ml @ 0 mls/hr Q24H IV 04/04/20 23:00 05/04/20 22:59 04/06/20 03:00 Phenylephrine HCl 50 mg/Dextrose 250 ml @ 0 mls/hr Q24H IV 04/06/20 01:30 05/06/20 01:29 04/06/20 05:06 Vancomycin HCl (Vanco rx to dose) 1 ea DAILY PRN MISC Per rx protocol 04/02/20 11:00 05/02/20 10:59 Vancomycin HCl 500 mg/Sodium Chloride 110 ml @ 110 mls/hr Q12HR@0600,1800 IVPB 04/02/20 18:00 04/11/20 17:59 04/06/20 05:50 Vasopressin 100 units/Sodium Chloride 100 ml @ 0 mls/hr Q24H PRN IV For hypotension 03/16/20 11:00 04/15/20 10:59 04/04/20 21:31 Last 24 Hour Vital Signs Date Time Temp Pulse Resp B/P (MAP) Pulse Ox O2 Delivery O2 Flow Rate FiO2 04/06/20 08:00 100 04/06/20 08:00 Mechanical Ventilator Mechanical Ventilator 04/06/20 07:18 91 24 100 04/06/20 07:00 90 42 103/51 (68) 88 04/06/20 07:00 103/51 04/06/20 07:00 103/51 04/06/20 06:00 101/47 04/06/20 06:00 101/47 04/06/20 06:00 90 37 101/47 (65) 90 04/06/20 05:58 94/48 04/06/20 05:30 91 39 106/50 (68) 89 04/06/20 05:06 91 100/46 04/06/20 05:00 91 44 100/46 (64) 91 04/06/20 05:00 105/48 04/06/20 05:00 105/48 04/06/20 04:30 91 37 104/44 (64) 91 04/06/20 04:00 100 04/06/20 04:00 91 04/06/20 04:00 Mechanical Ventilator Mechanical Ventilator 04/06/20 04:00 102/48 04/06/20 04:00 102/48 04/06/20 04:00 100.5 91 35 102/48 (66) 92 04/06/20 03:39 100.5 04/06/20 03:30 91 38 103/48 (66) 91 04/06/20 03:15 91 41 103/43 (63) 92 04/06/20 03:14 97/40 04/06/20 03:02 91 25 100 04/06/20 03:00 90 33 97/40 (59) 91 04/06/20 03:00 97/40 04/06/20 03:00 97/40 04/06/20 03:00 97/40 04/06/20 02:30 91 38 102/41 (61) 93 04/06/20 02:00 91 34 112/40 (64) 93 04/06/20 02:00 112/40 04/06/20 02:00 112/40 04/06/20 01:45 90 32 93/44 (60) 92 04/06/20 01:30 90 31 96/45 (62) 92 04/06/20 01:27 90 82/42 04/06/20 01:00 90 32 91/44 (60) 92 04/06/20 01:00 82/42 5/21/20 01:00 91/44 5/20 01:00 91/44 520 01:00 82/42 520 00:37 65/33 520 00:30 90 27 99/49 (66) 90 2120 00:00 100 520 00:00 96/47 520 00:00 96/47 20 00:00 91 04/06/20 00:00 Mechanical Ventilator Mechanical Ventilator 04/06/20 00:00 100.1 91 36 96/47 (63) 74 5/20/20 23:00 103/43 5/20/20 23:00 103/43 520/20 23:00 103/43 520/20 23:00 91 31 103/43 (63) 73 5/20/20 22:46 92 24 100 520/20 22:00 92 33 100/49 (66) 79 52020 22:00 109/50 520/20 22:00 109/50 520/20 21:30 90 35 106/48 (67) 79 5/20/20 21:00 90 30 100/46 (64) 80 5/20/20 21:00 97/42 5/20/20 21:00 97/42 5/20/20 20:30 90 39 99/45 (63) 81 5/20/20 20:00 100 5/20/20 20:00 Mechanical Ventilator Mechanical Ventilator 04/05/20 20:00 99.9 90 41 102/46 (64) 83 5/20/20 20:00 93/46 5/20/20 20:00 93/46 5/20/20 20:00 90 5/20/20 19:30 90 36 98/43 (61) 83 5/20/20 19:07 90 24 100 5/20/20 19:02 95/32 5/20/20 19:00 90 39 100/45 (63) 84 5/20/20 18:30 89 32 80/30 (47) 84 5/20/20 18:21 105/54 5/20/20 18:20 80/30 5/20/20 18:00 90 54 95/46 (62) 91 5/20/20 18:00 82/29 5/20/20 18:00 82/29 20 17:37 90 24 100 5 17:30 90 47 100/53 (69) 83 20 17:00 91 50 107/51 (69) 86 2020 17:00 103/51 520 17:00 103/51 520 16:30 90 55 104/52 (69) 84 04/05/20 16:00 99.5 90 50 100/48 (65) 83 20 16:00 100 04/05/20 16:00 103/49 04/05/20 16:00 103/49 04/05/20 16:00 Mechanical Ventilator Mechanical Ventilator 04/05/20 15:46 90 04/05/20 15:30 90 41 105/54 (71) 83 04/05/20 15:07 104/49 04/05/20 15:01 88 24 100 04/05/20 15:00 126/41 04/05/20 15:00 126/41 04/05/20 15:00 88 41 98/43 (61) 88 04/05/20 14:30 89 43 104/49 (67) 86 04/05/20 14:00 99/47 04/05/20 14:00 99/47 04/05/20 14:00 90 38 97/48 (64) 86 04/05/20 13:28 47 40 100/48 (65) 88 04/05/20 13:00 100/48 04/05/20 13:00 100/48 04/05/20 13:00 89 40 95/44 (61) 88 04/05/20 12:30 88 33 94/48 (63) 91 04/05/20 12:00 80 20 12:00 89 41 100/48 (65) 91 04/05/20 12:00 Mechanical Ventilator Mechanical Ventilator 04/05/20 12:00 99.4 89 41 100/48 (65) 91 20 12:00 55/26 520 12:00 55/26 520 12:00 100 04/05/20 11:35 88 24 100 04/05/20 11:30 86 40 102/42 (62) 91 5/20/20 11:23 103/54 520 11:22 102/46 520 11:00 107/42 520 11:00 107/42 520 11:00 88 41 107/42 (63) 91 20 10:30 87 42 109/54 (72) 91 20 10:00 86 40 103/54 (70) 91 20 10:00 103/54 520 10:00 103/54 04/05/20 09:52 86 24 100 520 09:40 101/42 20 09:39 101/44 20 09:30 88 42 98/54 (69) 93 04/05/20 09:00 89 37 97/54 (68) 93 04/05/20 09:00 99/48 520 09:00 99/48 04/05/20 08:30 87 29 84/25 (44) 92 04/05/20 08:22 101/42 04/05/20 08:21 66/25 04/05/20 08:00 100 04/05/20 08:00 99.0 83 22 106/40 (62) 92 04/05/20 08:00 106/40 04/05/20 08:00 106/40 04/05/20 08:00 Mechanical Ventilator Mechanical Ventilator 04/05/20 08:00 88 04/05/20 07:30 91 36 120/57 (78) 95 04/05/20 07:10 86 24 100 04/05/20 07:00 101/42 04/05/20 07:00 101/42 04/05/20 07:00 86 24 100/45 (63) 90 04/05/20 06:45 86 24 93/51 (65) 91 04/05/20 06:30 85 24 78/38 (51) 87 04/05/20 06:15 85 24 99/44 (62) 89 04/05/20 06:00 84 24 102/51 (68) 89 20 06:00 102/48 20 06:00 102/48 04/05/20 05:33 56/29 20 05:30 85 24 113/51 (71) 93 04/05/20 05:00 85 24 100/35 (56) 91 04/05/20 05:00 98/39 04/05/20 05:00 98/39 04/05/20 04:30 86 24 94/48 (63) 92 04/05/20 04:00 Mechanical Ventilator Mechanical Ventilator 04/05/20 04:00 98.3 86 24 89/41 (57) 90 04/05/20 04:00 87 04/05/20 04:00 96/49 04/05/20 04:00 96/49 04/05/20 04:00 100 04/05/20 03:30 86 24 96/44 (61) 90 04/05/20 03:00 85 24 89/48 (62) 80 04/05/20 02:59 56/29 04/05/20 02:31 98 24 100 04/05/20 02:30 85 24 102/50 (67) 89 04/05/20 02:00 84 24 56/29 (38) 88 04/05/20 02:00 101/56 04/05/20 01:15 87 32 101/48 (65) 89 04/05/20 01:00 87 32 101/35 (57) 88 04/05/20 01:00 109/52 04/05/20 01:00 109/52 04/05/20 00:45 88 29 114/54 (74) 85 04/05/20 00:43 107/41 04/05/20 00:30 88 32 109/48 (68) 89 04/05/20 00:15 89 30 107/41 (63) 90 04/05/20 00:00 102 04/05/20 00:00 Mechanical Ventilator Mechanical Ventilator 04/05/20 00:00 104/46 04/05/20 00:00 99.2 89 34 105/44 (64) 89 04/04/20 23:45 89 31 108/29 (55) 92 04/04/20 23:30 88 30 76/38 (51) 91 04/04/20 23:00 90 29 109/44 (65) 91 04/04/20 23:00 104/46 04/04/20 23:00 85/43 04/04/20 22:56 91 24 50 04/04/20 22:30 90 33 104/46 (65) 92 5/19/20 22:15 90 30 102/60 (74) 91 5/19/20 22:00 91 34 99/55 (70) 88 5/19/20 22:00 90/59 5/19/20 22:00 90/59 5/19/20 21:30 91 27 79/45 (56) 90 5/19/20 21:15 92 26 82/49 (60) 94 5/19/20 21:00 92 30 85/30 (48) 96 5/19/20 21:00 82/53 5/19/20 21:00 82/49 5/19/20 20:45 93 32 87/49 (62) 93 5/19/20 20:30 92 27 90/50 (63) 94 5/19/20 20:26 83/47 5/19/20 20:26 83/47 5/19/20 20:19 93 24 83/47 (59) 86 5/19/20 20:15 93 18 72/30 (44) 88 5/19/20 20:00 Mechanical Ventilator Mechanical Ventilator 20 20:00 93 5/19/20 20:00 80 5/19/20 20:00 85/56 5/19/20 20:00 85/56 5/19/20 20:00 101.0 93 26 85/56 (66) 95 5/19/20 19:15 93 24 98/42 (60) 95 5/19/20 19:10 97 24 50 5/19/20 19:00 93 24 88/51 (63) 96 5/19/20 19:00 93/50 5/19/20 19:00 93/50 5/19/20 18:30 94 24 95/55 (68) 96 5/19/20 18:00 89/56 5/19/20 18:00 89/56 5/19/20 18:00 94 26 96/57 (70) 96 5/19/20 17:30 94 29 98/53 (68) 95 5/19/20 17:22 90/41 5/19/20 17:11 94 24 91 Mechanical Ventilator 50 5//20 17:00 94 25 93/53 (66) 95 5/19/20 17:00 97/44 5/19/20 17:00 97/44 5/19/20 16:30 96 24 102/48 (66) 93 04/04/20 16:00 99.0 96 24 106/42 (63) 93 04/04/20 16:00 104/51 04/04/20 16:00 104/51 04/04/20 16:00 Mechanical Ventilator Mechanical Ventilator 04/04/20 16:00 96 04/04/20 16:00 50 20 15:30 95 24 73/27 (42) 92 04/04/20 15:02 89 24 50 04/04/20 15:00 96 24 107/41 (63) 95 04/04/20 15:00 107/41 04/04/20 15:00 90/41 04/04/20 15:00 107/41 04/04/20 14:30 86 24 55/33 (40) 84 04/04/20 14:00 94 24 90/32 (51) 90 04/04/20 14:00 97/34 04/04/20 14:00 97/34 04/04/20 13:30 94 24 105/31 (55) 91 04/04/20 13:00 105/41 04/04/20 13:00 105/41 04/04/20 13:00 90/32 04/04/20 13:00 95 24 99/43 (61) 91 04/04/20 12:00 Mechanical Ventilator Mechanical Ventilator 04/04/20 12:00 98.6 94 25 108/43 (64) 93 04/04/20 12:00 94 04/04/20 12:00 109/31 04/04/20 12:00 109/31 04/04/20 12:00 50 04/04/20 11:30 94 24 107/49 (68) 92 04/04/20 11:02 94 24 50 04/04/20 11:00 104/43 04/04/20 11:00 104/43 04/04/20 11:00 94 24 99/46 (63) 91 04/04/20 10:00 95 24 105/40 (61) 91 04/04/20 10:00 107/35 04/04/20 10:00 107/35 04/04/20 09:30 95 24 105/34 (57) 91 04/04/20 09:08 107/39 04/04/20 09:07 107/39 04/04/20 09:00 100/45 04/04/20 09:00 95 26 111/38 (62) 91 04/04/20 08:30 96 24 115/51 (72) 92 Intake and Output 04/05/20 04/06/20 19:00 07:00 Intake Total 1996.421 ml 2855.581 ml Output Total 370 ml 435 ml Balance 1626.421 ml 2420.581 ml Free Water 90 ml 90 ml IV Total 1906.421 ml 2765.581 ml Tube Feeding 0 ml 0 ml Output Urine Total 370 ml 435 ml # Bowel Movements 1 Labs Test 04/03/20 21:00 04/04/20 03:35 04/05/20 03:15 04/06/20 03:20 Urine Color Yellow Urine Appearance Clear Urine pH 5 (4.5-8.0) Urine Specific [place] 1.015 (1.005-1.035) Urine Protein Negative (NEGATIVE) Urine Glucose (UA) Negative (NEGATIVE) Urine Ketones 1+ (NEGATIVE) Urine Blood 1+ (NEGATIVE) Urine Nitrite Negative (NEGATIVE) Urine Bilirubin Negative (NEGATIVE) Urine Urobilinogen Normal MG/DL (0.0-1.0) Urine Leukocyte Esterase 1+ (NEGATIVE) Urine RBC 0-2 /HPF (0 - 2) Urine WBC 0-2 /HPF (0 - 2) Urine Squamous Epithelial Cells Occasional /LPF Urine Bacteria Few /HPF (NONE) Urine Yeast Many /HPF (NONE) White Blood Count 14.3 K/UL (4.8-10.8) 12.3 K/UL (4.8-10.8) 13.8 K/UL (4.8-10.8) Red Blood Count 2.43 M/UL (4.20-5.40) 2.48 M/UL (4.20-5.40) 2.39 M/UL (4.20-5.40) Hemoglobin 8.9 G/DL (12.0-16.0) 9.1 G/DL (12.0-16.0) 8.7 G/DL (12.0-16.0) Hematocrit 25.8 % (37.0-47.0) 26.3 % (37.0-47.0) 25.0 % (37.0-47.0) Mean Corpuscular Volume 106 FL (80-99) 106 FL (80-99) 105 FL (80-99) Mean Corpuscular Hemoglobin 36.5 PG (27.0-31.0) 36.5 PG (27.0-31.0) 36.5 PG (27.0-31.0) Mean Corpuscular Hemoglobin Concent 34.4 G/DL (32.0-36.0) 34.5 G/DL (32.0-36.0) 34.9 G/DL (32.0-36.0) Red Cell Distribution Width 22.9 % (11.6-14.8) 21.7 % (11.6-14.8) 21.2 % (11.6-14.8) Platelet Count 100 K/UL (150-450) 109 K/UL (150-450) 106 K/UL (150-450) Mean Platelet Volume 8.2 FL (6.5-10.1) 8.6 FL (6.5-10.1) 9.3 FL (6.5-10.1) Neutrophils (%) (Auto) 84.2 % (45.0-75.0) % (45.0-75.0) 82.7 % (45.0-75.0) Lymphocytes (%) (Auto) 8.0 % (20.0-45.0) % (20.0-45.0) 8.8 % (20.0-45.0) Monocytes (%) (Auto) 3.1 % (1.0-10.0) % (1.0-10.0) 2.4 % (1.0-10.0) Eosinophils (%) (Auto) 4.5 % (0.0-3.0) % (0.0-3.0) 5.7 % (0.0-3.0) Basophils (%) (Auto) 0.2 % (0.0-2.0) % (0.0-2.0) 0.4 % (0.0-2.0) Sodium Level 132 MMOL/L (136-145) 128 MMOL/L (136-145) 126 MMOL/L (136-145) Potassium Level 3.6 MMOL/L (3.5-5.1) 3.8 MMOL/L (3.5-5.1) 3.8 MMOL/L (3.5-5.1) Chloride Level 94 MMOL/L (98-107) 91 MMOL/L (98-107) 91 MMOL/L (98-107) Carbon Dioxide Level 37 MMOL/L (21-32) 33 MMOL/L (21-32) 32 MMOL/L (21-32) Anion Gap 2 mmol/L (5-15) 4 mmol/L (5-15) 3 mmol/L (5-15) Blood Urea Nitrogen 56 mg/dL (7-18) 54 mg/dL (7-18) 56 mg/dL (7-18) Creatinine 0.6 MG/DL (0.55-1.30) 0.8 MG/DL (0.55-1.30) 0.7 MG/DL (0.55-1.30) Estimat Glomerular Filtration Rate > 60 mL/min (>60) > 60 mL/min (>60) > 60 mL/min (>60) Glucose Level 140 MG/DL (74-106) 146 MG/DL (74-106) 143 MG/DL (74-106) Uric Acid 10.3 MG/DL (2.6-7.2) 11.5 MG/DL (2.6-7.2) Calcium Level 8.5 MG/DL (8.5-10.1) 7.7 MG/DL (8.5-10.1) 7.3 MG/DL (8.5-10.1) Phosphorus Level 4.5 MG/DL (2.5-4.9) 5.3 MG/DL (2.5-4.9) Magnesium Level 2.5 MG/DL (1.8-2.4) 2.3 MG/DL (1.8-2.4) Total Bilirubin 2.1 MG/DL (0.2-1.0) 1.8 MG/DL (0.2-1.0) 1.7 MG/DL (0.2-1.0) Direct Bilirubin 0.9 MG/DL (0.0-0.3) 0.9 MG/DL (0.0-0.3) 0.9 MG/DL (0.0-0.3) Gamma Glutamyl Transpeptidase 702 U/L (5-85) Aspartate Amino Transf (AST/SGOT) 662 U/L (15-37) 598 U/L (15-37) 460 U/L (15-37) Alanine Aminotransferase (ALT/SGPT) 227 U/L (12-78) 212 U/L (12-78) 158 U/L (12-78) Alkaline Phosphatase 463 U/L (46-116) 510 U/L (46-116) 471 U/L (46-116) Ammonia 51 umol/L (11-32) 117 umol/L (11-32) C-Reactive Protein, Quantitative 2.9 mg/dL (0.00-0.90) 5.4 mg/dL (0.00-0.90) Pro-B-Type Natriuretic Peptide 1948 pg/mL (0-125) 2187 pg/mL (0-125) Total Protein 5.9 G/DL (6.4-8.2) 5.9 G/DL (6.4-8.2) 5.5 G/DL (6.4-8.2) Albumin 2.2 G/DL (3.4-5.0) 2.0 G/DL (3.4-5.0) 1.9 G/DL (3.4-5.0) Globulin 3.7 g/dL 3.9 g/dL 3.6 g/dL Albumin/Globulin Ratio 0.6 (1.0-2.7) 0.5 (1.0-2.7) 0.5 (1.0-2.7) Cortisol AM Sample 1.0 UG/DL Vancomycin Level Trough 16.2 ug/mL (5.0-12.0) Height (Feet): 5 Height (Inches): 1.00 Weight (Pounds): 230 Objective Physical Exam: Vitals: reviewed General: NAD HEENT: nc, at++ngt Neck: supple Chest: crackles b/l, mech breath sounds ++intubated Cardiovascular: RRR, no s3, s4 EXT ++ Significant edema and erythema bilateral lower extremity, patient also has blistering on both feet, picc+ Neurologic: sedated Skin: other - As above Brett Mcclain MD April 06, 2020 08:24
--- NOTE | 2020-04-06 08:42 | General Progress Note ---
Assessment/Plan Status: progressing, unchanged Assessment/Plan: macrocytic anemia elevated LFTS cirrhosis cellulitis elevated Ammonia levels respiratory distress>>> now failure COVID positive pna NGTF on hold for elevated residuals reglan 5 mg iv Q6 for elevate residuals Xifaxan and lactulose monitor ammonia level fu stool ob>>>neg GI procedures if needed abx per id hepatitis panel>>>>>positive for hep C>>> needs out patient fu poor prognosis doing worse, on 4 pressors will fu Subjective ROS Limited/Unobtainable: No Allergies: Coded Allergies: No Known Allergies (Unverified , 02/29/20) Objective Last 24 Hour Vital Signs Date Time Temp Pulse Resp B/P (MAP) Pulse Ox O2 Delivery O2 Flow Rate FiO2 04/06/20 08:00 100 04/06/20 08:00 Mechanical Ventilator Mechanical Ventilator 04/06/20 07:18 91 24 100 04/06/20 07:00 90 42 103/51 (68) 88 04/06/20 07:00 103/51 04/06/20 07:00 103/51 04/06/20 06:00 101/47 04/06/20 06:00 101/47 04/06/20 06:00 90 37 101/47 (65) 90 04/06/20 05:58 94/48 04/06/20 05:30 91 39 106/50 (68) 89 04/06/20 05:06 91 100/46 04/06/20 05:00 91 44 100/46 (64) 91 04/06/20 05:00 105/48 04/06/20 05:00 105/48 04/06/20 04:30 91 37 104/44 (64) 91 04/06/20 04:00 100 04/06/20 04:00 91 04/06/20 04:00 Mechanical Ventilator Mechanical Ventilator 04/06/20 04:00 102/48 04/06/20 04:00 102/48 04/06/20 04:00 100.5 91 35 102/48 (66) 92 04/06/20 03:39 100.5 04/06/20 03:30 91 38 103/48 (66) 91 04/06/20 03:15 91 41 103/43 (63) 92 04/06/20 03:14 97/40 04/06/20 03:02 91 25 100 04/06/20 03:00 90 33 97/40 (59) 91 04/06/20 03:00 97/40 04/06/20 03:00 97/40 04/06/20 03:00 97/40 04/06/20 02:30 91 38 102/41 (61) 93 04/06/20 02:00 91 34 112/40 (64) 93 04/06/20 02:00 112/40 04/06/20 02:00 112/40 04/06/20 01:45 90 32 93/44 (60) 92 04/06/20 01:30 90 31 96/45 (62) 92 04/06/20 01:27 90 82/42 04/06/20 01:00 90 32 91/44 (60) 92 04/06/20 01:00 82/42 04/06/20 01:00 91/44 04/06/20 01:00 91/44 04/06/20 01:00 82/42 04/06/20 00:37 65/33 04/06/20 00:30 90 27 99/49 (66) 90 04/06/20 00:00 100 04/06/20 00:00 96/47 04/06/20 00:00 96/47 04/06/20 00:00 91 04/06/20 00:00 Mechanical Ventilator Mechanical Ventilator 04/06/20 00:00 100.1 91 36 96/47 (63) 74 04/05/20 23:00 103/43 20 23:00 103/43 04/05/20 23:00 103/43 04/05/20 23:00 91 31 103/43 (63) 73 20 22:46 92 24 100 04/05/20 22:00 92 33 100/49 (66) 79 2020 22:00 109/50 52020 22:00 109/50 20 21:30 90 35 106/48 (67) 79 20 21:00 90 30 100/46 (64) 80 20 21:00 97/42 520 21:00 97/42 20 20:30 90 39 99/45 (63) 81 04/05/20 20:00 100 5/20/20 20:00 Mechanical Ventilator Mechanical Ventilator 520/20 20:00 99.9 90 41 102/46 (64) 83 5/20/20 20:00 93/46 5/20/20 20:00 93/46 5/20/20 20:00 90 5/20/20 19:30 90 36 98/43 (61) 83 5/20/20 19:07 90 24 100 5/20/20 19:02 95/32 5/20/20 19:00 90 39 100/45 (63) 84 5/20/20 18:30 89 32 80/30 (47) 84 5/20/20 18:21 105/54 5/20/20 18:20 80/30 5/20/20 18:00 90 54 95/46 (62) 91 520/20 18:00 82/29 5/20/20 18:00 82/29 5/20/20 17:37 90 24 100 5/20/20 17:30 90 47 100/53 (69) 83 520/20 17:00 91 50 107/51 (69) 86 520/20 17:00 103/51 520/20 17:00 103/51 5/20/20 16:30 90 55 104/52 (69) 84 520/20 16:00 99.5 90 50 100/48 (65) 83 520/20 16:00 100 520/20 16:00 103/49 5/20/20 16:00 103/49 5/20/20 16:00 Mechanical Ventilator Mechanical Ventilator 20 15:46 90 520/20 15:30 90 41 105/54 (71) 83 5/20/20 15:07 104/49 5/20/20 15:01 88 24 100 5/20/20 15:00 126/41 5/20/20 15:00 126/41 5/20/20 15:00 88 41 98/43 (61) 88 5/20/20 14:30 89 43 104/49 (67) 86 5/20/20 14:00 99/47 5/20/20 14:00 99/47 5/20/20 14:00 90 38 97/48 (64) 86 5/20/20 13:28 47 40 100/48 (65) 88 5/20/20 13:00 100/48 04/05/20 13:00 100/48 04/05/20 13:00 89 40 95/44 (61) 88 04/05/20 12:30 88 33 94/48 (63) 91 04/05/20 12:00 80 04/05/20 12:00 89 41 100/48 (65) 91 04/05/20 12:00 Mechanical Ventilator Mechanical Ventilator 04/05/20 12:00 99.4 89 41 100/48 (65) 91 04/05/20 12:00 55/26 04/05/20 12:00 55/26 04/05/20 12:00 100 04/05/20 11:35 88 24 100 04/05/20 11:30 86 40 102/42 (62) 91 04/05/20 11:23 103/54 04/05/20 11:22 102/46 04/05/20 11:00 107/42 04/05/20 11:00 107/42 04/05/20 11:00 88 41 107/42 (63) 91 04/05/20 10:30 87 42 109/54 (72) 91 04/05/20 10:00 86 40 103/54 (70) 91 04/05/20 10:00 103/54 04/05/20 10:00 103/54 04/05/20 09:52 86 24 100 04/05/20 09:40 101/42 04/05/20 09:39 101/44 04/05/20 09:30 88 42 98/54 (69) 93 04/05/20 09:00 89 37 97/54 (68) 93 04/05/20 09:00 99/48 04/05/20 09:00 99/48 Intake and Output 04/05/20 04/06/20 19:00 07:00 Intake Total 1996.421 ml 2855.581 ml Output Total 370 ml 435 ml Balance 1626.421 ml 2420.581 ml Free Water 90 ml 90 ml IV Total 1906.421 ml 2765.581 ml Tube Feeding 0 ml 0 ml Output Urine Total 370 ml 435 ml # Bowel Movements 1 Laboratory Tests 04/06/20 03:20: White Blood Count 13.8H, Red Blood Count 2.39L, Hemoglobin 8.7L, Hematocrit 25.0L, Mean Corpuscular Volume 105H, Mean Corpuscular Hemoglobin 36.5H, Mean Corpuscular Hemoglobin Concent 34.9, Red Cell Distribution Width 21.2H, Platelet Count 106L, Mean Platelet Volume 9.3, Neutrophils (%) (Auto) 82.7H, Lymphocytes (%) (Auto) 8.8L, Monocytes (%) (Auto) 2.4, Eosinophils (%) (Auto) 5.7H, Basophils (%) (Auto) 0.4, Sodium Level 126L, Potassium Level 3.8, Chloride Level 91L, Carbon Dioxide Level 32, Anion Gap 3L, Blood Urea Nitrogen 56H, Creatinine 0.7, Estimat Glomerular Filtration Rate > 60, Glucose Level 143H , Uric Acid 11.5H, Calcium Level 7.3L, Phosphorus Level 5.3H, Magnesium Level 2.3, Total Bilirubin 1.7H, Direct Bilirubin 0.9H, Aspartate Amino Transf (AST/ SGOT) 460H, Alanine Aminotransferase (ALT/SGPT) 158H, Alkaline Phosphatase 471H , C-Reactive Protein, Quantitative 5.4H, Pro-B-Type Natriuretic Peptide 2187H, Total Protein 5.5L, Albumin 1.9L, Globulin 3.6, Albumin/Globulin Ratio 0.5L Height (Feet): 5 Height (Inches): 1.00 Weight (Pounds): 230 General Appearance: lethargic Neck: supple Cardiovascular: tachycardia Respiratory/Chest: decreased breath sounds Abdomen: soft, hypoactive bowel sounds Extremities: non-tender Tam Spicer MD April 06, 2020 08:42
[2020-04-06] MEDS: Fluconazole 100mg tab NG SCH (08:45)
[2020-04-06] MEDS: Midodrine 10mg tab NG SCH ×3 (08:45→17:04)
[2020-04-06] MEDS: Vasopressin 100 UNITS in NS 95 ML IV PRN (08:45)
--- NOTE | 2020-04-06 10:04 | Nephrology Progress Note ---
Assessment/Plan Problem List: (1) Respiratory failure with hypoxia (2) Electrolyte imbalance Assessment: Hyponatremia resolved -hyperkalemia resolved (3) COVID-19 (4) Cellulitis (5) Hypothyroid Assessment Hyponatremia. Serum sodium started drifting down from March 16. Hyperkalemia. Septic shock. Acute respiratory failure. Respiratory failure and COVID pneumonia. History of cirrhosis/splenomegaly Anemia Bilateral lower extremity cellulitis Plan EEG: This is a severely abnormal EEG characterized by very low amplitude, slow activity with no reactivity to external stimulation. COMMENT: The study is consistent with severe encephalopathy. Clinical correlation is recommended. April 06: Patient remains unresponsive on 3 pressors Edematous On ventilator Today's labs reviewed Hyponatremia and anemia worsened Overall poor prognosis yet remains full code Not much to add from renal standpoint of view at this stage since she is hemodynamically very unstable April 05: Patient is doing poorly on 3 pressors and remains unresponsive Remains full code Not much to add from renal standpoint of view Discussed with DAO Little Will give a trial of 3% saline for hyponatremia April 04: Patient stable from renal standpoint to view We will continue to watch BUN/creatinine and electrolytes Will add allopurinol for high uric acid Continue per consultants Remains full code Per orders March 18: Hypotensive, on pressors as needed Unresponsive Serum sodium improved Will administer another bolus of 3% saline Continue per consultants Not much to add from renal standpoint to view Prognosis poor, remain full code April 02: Blood pressure is maintained on pressors Remains unresponsive Today's lab reviewed 3% saline ordered EEG is severely abnormal Remains full code however prognosis is poor Discussed with DAO Huber ED April 01: Patient became hypoglycemic so long-acting insulin is held Potassium is 5.7 so albumin and Lasix in addition to Kayexalate is ordered Increase D5W to 100 cc an hour Blood sugar management per Endo Discussed with DAO Gabriel EEG ordered results pending Overall prognosis poor March 31: Increase lactulose dose 1 dose of Kayexalate Continue to monitor liver enzymes Patient unresponsive despite discontinuation of all mind altering medications Neuro eval? March 30 Electrolytes and bicarb improved We will cut down D5W IV fluid Blood sugar better controlled Liver enzymes still remains elevated Discussed with DAO March 13: Worsening leukocytosis Serum sodium lowering Blood sugar still elevated need insulin adjustment Continue to monitor electrolytes and renal parameters Continue per pulmonary Discussed with DAO Sarkar March 28: Serum sodium down to 160 Continue with D5W Continue per pulmonary May 11: Serum sodium vahe Patient retaining CO2 Will start D5W IV fluid Hold Diamox for now until further comments from [place] [employer] Continue to monitor electrolytes Midodrine dose increased March 26: Remains unstable. Lasix and potassium chloride discontinued. IV Diamox initiated. ABG noted. Midodrine initiated. Continue per pulmonary and ID. Statins discontinued due to elevated liver enzymes. Continue to monitor electrolytes and renal parameters and ABG. Patient remains full code. 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 to [place] [employer] Urine sodium is below 20 Serum ammonia is elevated will start lactulose Patient on Solu-Medrol and Solu-Cortef will discontinue Solu-Cortef Will try to gently diurese for severe edema meanwhile administering albumin 25% as needed Monitor electrolytes and renal parameters We will add midodrine 10 mg 3 times a day via NG tube Decrease dosage of IV Synthroid Discussed with DAO Starr Subjective ROS Limited/Unobtainable: Yes Objective Objective Last 24 Hour Vital Signs Date Time Temp Pulse Resp B/P (MAP) Pulse Ox O2 Delivery O2 Flow Rate FiO2 04/06/20 09:51 87 96/45 04/06/20 09:30 89 40 102/45 (64) 94 04/06/20 09:16 100.6 04/06/20 09:09 103/51 04/06/20 09:00 90 29 99/62 (74) 88 04/06/20 08:30 90 40 89/46 (60) 86 04/06/20 08:00 100.8 90 50 102/49 (66) 89 04/06/20 08:00 100 04/06/20 08:00 Mechanical Ventilator Mechanical Ventilator 04/06/20 07:18 91 24 100 04/06/20 07:00 90 42 103/51 (68) 88 04/06/20 07:00 103/51 04/06/20 07:00 103/51 04/06/20 06:00 101/47 04/06/20 06:00 101/47 04/06/20 06:00 90 37 101/47 (65) 90 04/06/20 05:58 94/48 04/06/20 05:30 91 39 106/50 (68) 89 04/06/20 05:06 91 100/46 04/06/20 05:00 91 44 100/46 (64) 91 04/06/20 05:00 105/48 04/06/20 05:00 105/48 04/06/20 04:30 91 37 104/44 (64) 91 04/06/20 04:00 100 04/06/20 04:00 91 04/06/20 04:00 Mechanical Ventilator Mechanical Ventilator 04/06/20 04:00 102/48 04/06/20 04:00 102/48 04/06/20 04:00 100.5 91 35 102/48 (66) 92 04/06/20 03:30 91 38 103/48 (66) 91 04/06/20 03:15 91 41 103/43 (63) 92 04/06/20 03:14 97/40 04/06/20 03:02 91 25 100 04/06/20 03:00 90 33 97/40 (59) 91 04/06/20 03:00 97/40 04/06/20 03:00 97/40 04/06/20 03:00 97/40 04/06/20 02:30 91 38 102/41 (61) 93 04/06/20 02:00 91 34 112/40 (64) 93 04/06/20 02:00 112/40 04/06/20 02:00 112/40 04/06/20 01:45 90 32 93/44 (60) 92 04/06/20 01:30 90 31 96/45 (62) 92 04/06/20 01:27 90 82/42 04/06/20 01:00 90 32 91/44 (60) 92 04/06/20 01:00 82/42 04/06/20 01:00 91/44 04/06/20 01:00 91/44 04/06/20 01:00 82/42 04/06/20 00:37 65/33 04/06/20 00:30 90 27 99/49 (66) 90 04/06/20 00:00 100 04/06/20 00:00 96/47 04/06/20 00:00 96/47 5/21/20 00:00 91 5/21/20 00:00 Mechanical Ventilator Mechanical Ventilator 521/20 00:00 100.1 91 36 96/47 (63) 74 5/20/20 23:00 103/43 5/20/20 23:00 103/43 5/20/20 23:00 103/43 5/20/20 23:00 91 31 103/43 (63) 73 5/20/20 22:46 92 24 100 5/20/20 22:00 92 33 100/49 (66) 79 5/20/20 22:00 109/50 5/20/20 22:00 109/50 5/20/20 21:30 90 35 106/48 (67) 79 5/20/20 21:00 90 30 100/46 (64) 80 5/20/20 21:00 97/42 5/20/20 21:00 97/42 5/20/20 20:30 90 39 99/45 (63) 81 5/20/20 20:00 100 5/20/20 20:00 Mechanical Ventilator Mechanical Ventilator 20 20:00 99.9 90 41 102/46 (64) 83 5/20/20 20:00 93/46 5/20/20 20:00 93/46 5/20/20 20:00 90 5/20/20 19:30 90 36 98/43 (61) 83 5/20/20 19:07 90 24 100 5/20/20 19:02 95/32 5/20/20 19:00 90 39 100/45 (63) 84 5/20/20 18:30 89 32 80/30 (47) 84 5/20/20 18:21 105/54 5/20/20 18:20 80/30 5/20/20 18:00 90 54 95/46 (62) 91 5/20/20 18:00 82/29 5/20/20 18:00 82/29 5/20/20 17:37 90 24 100 5/20/20 17:30 90 47 100/53 (69) 83 5/20/20 17:00 91 50 107/51 (69) 86 5/20/20 17:00 103/51 5/20/20 17:00 103/51 5/20/20 16:30 90 55 104/52 (69) 84 5/20/20 16:00 99.5 90 50 100/48 (65) 83 04/05/20 16:00 100 04/05/20 16:00 103/49 04/05/20 16:00 103/49 04/05/20 16:00 Mechanical Ventilator Mechanical Ventilator 04/05/20 15:46 90 04/05/20 15:30 90 41 105/54 (71) 83 04/05/20 15:07 104/49 04/05/20 15:01 88 24 100 04/05/20 15:00 126/41 04/05/20 15:00 126/41 04/05/20 15:00 88 41 98/43 (61) 88 04/05/20 14:30 89 43 104/49 (67) 86 04/05/20 14:00 99/47 04/05/20 14:00 99/47 04/05/20 14:00 90 38 97/48 (64) 86 04/05/20 13:28 47 40 100/48 (65) 88 04/05/20 13:00 100/48 04/05/20 13:00 100/48 04/05/20 13:00 89 40 95/44 (61) 88 04/05/20 12:30 88 33 94/48 (63) 91 04/05/20 12:00 80 04/05/20 12:00 89 41 100/48 (65) 91 04/05/20 12:00 Mechanical Ventilator Mechanical Ventilator 04/05/20 12:00 99.4 89 41 100/48 (65) 91 04/05/20 12:00 55/26 04/05/20 12:00 55/26 04/05/20 12:00 100 04/05/20 11:35 88 24 100 04/05/20 11:30 86 40 102/42 (62) 91 04/05/20 11:23 103/54 04/05/20 11:22 102/46 04/05/20 11:00 107/42 04/05/20 11:00 107/42 04/05/20 11:00 88 41 107/42 (63) 91 04/05/20 10:30 87 42 109/54 (72) 91 Intake and Output 04/05/20 04/06/20 19:00 07:00 Intake Total 1996.421 ml 2855.581 ml Output Total 370 ml 435 ml Balance 1626.421 ml 2420.581 ml Free Water 90 ml 90 ml IV Total 1906.421 ml 2765.581 ml Tube Feeding 0 ml 0 ml Output Urine Total 370 ml 435 ml # Bowel Movements 1 Laboratory Tests 04/06/20 03:20: White Blood Count 13.8H, Red Blood Count 2.39L, Hemoglobin 8.7L, Hematocrit 25.0L, Mean Corpuscular Volume 105H, Mean Corpuscular Hemoglobin 36.5H, Mean Corpuscular Hemoglobin Concent 34.9, Red Cell Distribution Width 21.2H, Platelet Count 106L, Mean Platelet Volume 9.3, Neutrophils (%) (Auto) 82.7H, Lymphocytes (%) (Auto) 8.8L, Monocytes (%) (Auto) 2.4, Eosinophils (%) (Auto) 5.7H, Basophils (%) (Auto) 0.4, Sodium Level 126L, Potassium Level 3.8, Chloride Level 91L, Carbon Dioxide Level 32, Anion Gap 3L, Blood Urea Nitrogen 56H, Creatinine 0.7, Estimat Glomerular Filtration Rate > 60, Glucose Level 143H , Uric Acid 11.5H, Calcium Level 7.3L, Phosphorus Level 5.3H, Magnesium Level 2.3, Total Bilirubin 1.7H, Direct Bilirubin 0.9H, Aspartate Amino Transf (AST/ SGOT) 460H, Alanine Aminotransferase (ALT/SGPT) 158H, Alkaline Phosphatase 471H , C-Reactive Protein, Quantitative 5.4H, Pro-B-Type Natriuretic Peptide 2187H, Total Protein 5.5L, Albumin 1.9L, Globulin 3.6, Albumin/Globulin Ratio 0.5L Height (Feet): 5 Height (Inches): 1.00 Weight (Pounds): 230 General Appearance: no apparent distress, other - On 3 pressors EENT: other - Intubated on ventilator Respiratory/Chest: decreased breath sounds Abdomen: distended Extremities: severe edema Objective No change Cristhian Granados MD April 06, 2020 10:04
--- NOTE | 2020-04-06 10:44 | Diagnostic Imaging Report ---
Procedure: XRAY Chest 1v Reason for study: Shortness of breath Comparison films: 04/06/2020. FINDINGS: Endotracheal tube has been pulled back. The tip which was into the right mainstem bronchus on previous exam is now 2 cm above the mike. NG tube and PICC line remain in place. Radiograph is underpenetrated. Bilateral basilar densities unchanged. Cardiac and mediastinal silhouette are within normal limits. Effusions unchanged. The bony thorax appear unremarkable. IMPRESSION: Endotracheal tube has been pulled back and is now 2 cm above the mike. Otherwise no significant change.
--- NOTE | 2020-04-06 10:52 | Infectious Diseases Prog Note ---
Assessment/Plan Assessment/Plan IMPRESSION: 1. Bilateral leg cellulitis treated 2. Anemia. 3. Hypoxemic respiratory failure 4. Thrombocytopenia. 5. Homeless 6. Morbid obesity. 7. Cirrhosis 8. COVID19 pneumonia Positive03/07-03/12, 03/24, 03/27. 04/02 9. Hepatitis C 10.septic shock 11. Pneumonia with Pseudomonas 12. DM & hyperglycemia 13. Diarrhea, C. difficile negative 14. Leukocytosis improving 15. Severe encephalopathy RECOMMENDATION: Will f/u COVID19 test Finished Plaquenil ,Actemra, steroids & Ivermectin continue Meropenem, Vancomycin & Fluconazole Poor prognosis Case was D/W RN Subjective ROS Limited/Unobtainable: Yes Constitutional: Reports: fever, other - Ki=182.8 Cardiovascular: Reports: other - on maximal dose of pressors Allergies: Coded Allergies: No Known Allergies (Unverified , 02/29/20) Objective Vital Signs Last 24 Hour Vital Signs Date Time Temp Pulse Resp B/P (MAP) Pulse Ox O2 Delivery O2 Flow Rate FiO2 04/06/20 09:51 87 96/45 04/06/20 09:30 89 40 102/45 (64) 94 04/06/20 09:16 100.6 04/06/20 09:09 103/51 04/06/20 09:00 90 29 99/62 (74) 88 04/06/20 08:30 90 40 89/46 (60) 86 04/06/20 08:00 100.8 90 50 102/49 (66) 89 04/06/20 08:00 100 04/06/20 08:00 90 04/06/20 08:00 Mechanical Ventilator Mechanical Ventilator 04/06/20 07:18 91 24 100 04/06/20 07:00 90 42 103/51 (68) 88 04/06/20 07:00 103/51 04/06/20 07:00 103/51 04/06/20 06:00 101/47 04/06/20 06:00 101/47 04/06/20 06:00 90 37 101/47 (65) 90 04/06/20 05:58 94/48 04/06/20 05:30 91 39 106/50 (68) 89 04/06/20 05:06 91 100/46 04/06/20 05:00 91 44 100/46 (64) 91 04/06/20 05:00 105/48 04/06/20 05:00 105/48 04/06/20 04:30 91 37 104/44 (64) 91 04/06/20 04:00 100 04/06/20 04:00 91 04/06/20 04:00 Mechanical Ventilator Mechanical Ventilator 04/06/20 04:00 102/48 04/06/20 04:00 102/48 04/06/20 04:00 100.5 91 35 102/48 (66) 92 04/06/20 03:30 91 38 103/48 (66) 91 04/06/20 03:15 91 41 103/43 (63) 92 04/06/20 03:14 97/40 04/06/20 03:02 91 25 100 04/06/20 03:00 90 33 97/40 (59) 91 04/06/20 03:00 97/40 04/06/20 03:00 97/40 04/06/20 03:00 97/40 04/06/20 02:30 91 38 102/41 (61) 93 04/06/20 02:00 91 34 112/40 (64) 93 04/06/20 02:00 112/40 04/06/20 02:00 112/40 04/06/20 01:45 90 32 93/44 (60) 92 04/06/20 01:30 90 31 96/45 (62) 92 04/06/20 01:27 90 82/42 04/06/20 01:00 90 32 91/44 (60) 92 04/06/20 01:00 82/42 04/06/20 01:00 91/44 04/06/20 01:00 91/44 04/06/20 01:00 82/42 04/06/20 00:37 65/33 04/06/20 00:30 90 27 99/49 (66) 90 04/06/20 00:00 100 04/06/20 00:00 96/47 04/06/20 00:00 96/47 04/06/20 00:00 91 04/06/20 00:00 Mechanical Ventilator Mechanical Ventilator 04/06/20 00:00 100.1 91 36 96/47 (63) 74 04/05/20 23:00 103/43 5/20/20 23:00 103/43 5/20/20 23:00 103/43 5/20/20 23:00 91 31 103/43 (63) 73 5/20/20 22:46 92 24 100 5/20/20 22:00 92 33 100/49 (66) 79 5/20/20 22:00 109/50 5/20/20 22:00 109/50 5/20/20 21:30 90 35 106/48 (67) 79 5/20/20 21:00 90 30 100/46 (64) 80 5/20/20 21:00 97/42 5/20/20 21:00 97/42 5/20/20 20:30 90 39 99/45 (63) 81 5/20/20 20:00 100 5/20/20 20:00 Mechanical Ventilator Mechanical Ventilator 520/20 20:00 99.9 90 41 102/46 (64) 83 5/20/20 20:00 93/46 5/20/20 20:00 93/46 5/20/20 20:00 90 5/20/20 19:30 90 36 98/43 (61) 83 5/20/20 19:07 90 24 100 5/20/20 19:02 95/32 5/20/20 19:00 90 39 100/45 (63) 84 5/20/20 18:30 89 32 80/30 (47) 84 5/20/20 18:21 105/54 5/20/20 18:20 80/30 5/20/20 18:00 90 54 95/46 (62) 91 5/20/20 18:00 82/29 5/20/20 18:00 82/29 5/20/20 17:37 90 24 100 5/20/20 17:30 90 47 100/53 (69) 83 5/20/20 17:00 91 50 107/51 (69) 86 5/20/20 17:00 103/51 5/20/20 17:00 103/51 5/20/20 16:30 90 55 104/52 (69) 84 5/20/20 16:00 99.5 90 50 100/48 (65) 83 5/20/20 16:00 100 5/20/20 16:00 103/49 5/20/20 16:00 103/49 5/20/20 16:00 Mechanical Ventilator Mechanical Ventilator 04/05/20 15:46 90 04/05/20 15:30 90 41 105/54 (71) 83 04/05/20 15:07 104/49 04/05/20 15:01 88 24 100 04/05/20 15:00 126/41 04/05/20 15:00 126/41 04/05/20 15:00 88 41 98/43 (61) 88 04/05/20 14:30 89 43 104/49 (67) 86 04/05/20 14:00 99/47 04/05/20 14:00 99/47 04/05/20 14:00 90 38 97/48 (64) 86 04/05/20 13:28 47 40 100/48 (65) 88 04/05/20 13:00 100/48 04/05/20 13:00 100/48 04/05/20 13:00 89 40 95/44 (61) 88 04/05/20 12:30 88 33 94/48 (63) 91 04/05/20 12:00 80 04/05/20 12:00 89 41 100/48 (65) 91 04/05/20 12:00 Mechanical Ventilator Mechanical Ventilator 04/05/20 12:00 99.4 89 41 100/48 (65) 91 04/05/20 12:00 55/26 04/05/20 12:00 55/26 04/05/20 12:00 100 04/05/20 11:35 88 24 100 04/05/20 11:30 86 40 102/42 (62) 91 04/05/20 11:23 103/54 04/05/20 11:22 102/46 04/05/20 11:00 107/42 04/05/20 11:00 107/42 04/05/20 11:00 88 41 107/42 (63) 91 Height (Feet): 5 Height (Inches): 1.00 Weight (Pounds): 230 HEENT: other - orally intubated Respiratory/Chest: other - on ventilator Cardiovascular: normal rate, other - PICC line Abdomen: other - NG tube Extremities: other - edema Neurologic/Psychiatric: other - no gag reflex, only some feet movements Laboratory Tests Test 04/06/20 03:20 White Blood Count 13.8 K/UL (4.8-10.8) H Red Blood Count 2.39 M/UL (4.20-5.40) L Hemoglobin 8.7 G/DL (12.0-16.0) L Hematocrit 25.0 % (37.0-47.0) L Mean Corpuscular Volume 105 FL (80-99) H Mean Corpuscular Hemoglobin 36.5 PG (27.0-31.0) H Mean Corpuscular Hemoglobin Concent 34.9 G/DL (32.0-36.0) Red Cell Distribution Width 21.2 % (11.6-14.8) H Platelet Count 106 K/UL (150-450) L Mean Platelet Volume 9.3 FL (6.5-10.1) Neutrophils (%) (Auto) 82.7 % (45.0-75.0) H Lymphocytes (%) (Auto) 8.8 % (20.0-45.0) L Monocytes (%) (Auto) 2.4 % (1.0-10.0) Eosinophils (%) (Auto) 5.7 % (0.0-3.0) H Basophils (%) (Auto) 0.4 % (0.0-2.0) Sodium Level 126 MMOL/L (136-145) L Potassium Level 3.8 MMOL/L (3.5-5.1) Chloride Level 91 MMOL/L (98-107) L Carbon Dioxide Level 32 MMOL/L (21-32) Anion Gap 3 mmol/L (5-15) L Blood Urea Nitrogen 56 mg/dL (7-18) H Creatinine 0.7 MG/DL (0.55-1.30) Estimat Glomerular Filtration Rate > 60 mL/min (>60) Glucose Level 143 MG/DL (74-106) H Uric Acid 11.5 MG/DL (2.6-7.2) H Calcium Level 7.3 MG/DL (8.5-10.1) L Phosphorus Level 5.3 MG/DL (2.5-4.9) H Magnesium Level 2.3 MG/DL (1.8-2.4) Total Bilirubin 1.7 MG/DL (0.2-1.0) H Direct Bilirubin 0.9 MG/DL (0.0-0.3) H Aspartate Amino Transf (AST/SGOT) 460 U/L (15-37) H Alanine Aminotransferase (ALT/SGPT) 158 U/L (12-78) H Alkaline Phosphatase 471 U/L (46-116) H C-Reactive Protein, Quantitative 5.4 mg/dL (0.00-0.90) H Pro-B-Type Natriuretic Peptide 2187 pg/mL (0-125) H Total Protein 5.5 G/DL (6.4-8.2) L Albumin 1.9 G/DL (3.4-5.0) L Globulin 3.6 g/dL Albumin/Globulin Ratio 0.5 (1.0-2.7) L Current Medications Medications (Trade) Dose Ordered Sig/Dolores Route PRN Reason Start Time Stop Time Status Last Admin Dose Admin Acetaminophen (Tylenol) 650 mg Q4H PRN NG Temp >100.5 04/01/20 22:00 05/01/20 21:59 04/06/20 08:46 Acetaminophen (Tylenol) 650 mg Q4H PRN ORAL Mild Pain (Pain Scale 1-3) 03/13/20 14:53 04/12/20 14:52 04/01/20 21:26 Allopurinol (allopurinoL) 300 mg DAILY NG 04/04/20 10:32 05/04/20 10:31 04/06/20 08:45 Chlorhexidine Gluconate (Lucretia-Hex 2%) 1 applic DAILY@2000 TOPIC 03/13/20 20:00 06/11/20 19:59 04/05/20 19:57 Dextrose (Dextrose 50%) 25 ml Q30M PRN IV Hypoglycemia 04/03/20 00:00 07/02/20 00:00 Dextrose (Dextrose 50%) 50 ml Q30M PRN IV Hypoglycemia 04/03/20 00:00 07/02/20 00:00 Dopamine HCl/ Dextrose 250 ml @ 0 mls/hr Q24H IV 03/16/20 19:30 06/14/20 19:29 04/06/20 09:09 Fluconazole (Diflucan) 200 mg DAILY NG 03/31/20 11:00 04/11/20 10:59 04/06/20 08:45 Hydralazine HCl (Apresoline) 10 mg Q6H PRN IV For High Blood Pressure 03/24/20 16:45 06/22/20 16:44 Insulin Aspart (NovoLOG) Q6HR SUBQ 04/03/20 00:00 07/02/20 00:00 04/05/20 23:53 Lactulose (Cephulac) 40 gm Q8HR ORAL 04/01/20 14:00 04/30/20 17:59 04/06/20 05:04 Levothyroxine Sodium (Synthroid) 50 mcg QOD IV 04/05/20 09:00 04/17/20 11:59 04/05/20 09:40 Meropenem 1 gm/ Sodium Chloride 55 ml @ 110 mls/hr Q8HR IVPB 03/29/20 14:00 04/11/20 13:59 04/06/20 05:07 Metoclopramide HCl (Reglan) 10 mg EVERY 6 HOURS IVP 04/04/20 12:00 05/04/20 11:59 04/06/20 05:04 Midodrine (Pro-Amatine) 10 mg THREE TIMES A DAY NG 03/27/20 09:00 06/20/20 12:29 04/06/20 08:45 Norepinephrine Bitartrate 16 mg/ Dextrose 566 ml @ 0 mls/hr Q24H IV 04/04/20 23:00 05/04/20 22:59 04/06/20 03:00 Phenylephrine HCl 50 mg/Dextrose 250 ml @ 0 mls/hr Q24H IV 04/06/20 01:30 05/06/20 01:29 04/06/20 09:51 Vancomycin HCl (Vanco rx to dose) 1 ea DAILY PRN MISC Per rx protocol 04/02/20 11:00 05/02/20 10:59 Vancomycin HCl 500 mg/Sodium Chloride 110 ml @ 110 mls/hr Q12HR@0600,1800 IVPB 04/02/20 18:00 04/11/20 17:59 04/06/20 05:50 Vasopressin 100 units/Sodium Chloride 100 ml @ 0 mls/hr Q24H PRN IV For hypotension 03/16/20 11:00 04/15/20 10:59 04/06/20 08:45 Jonathon Shah MD April 06, 2020 10:52
[2020-04-06] MEDS ORDERED: Phenylephrine 100 MG in D5W 240 ML IV SCH (16:00)
--- NOTE | 2020-04-06 16:13 | Surgery Progress Note ---
Surgery Progress Note Subjective Symptoms: worse Objective Last 24 Hour Vital Signs Date Time Temp Pulse Resp B/P (MAP) Pulse Ox O2 Delivery O2 Flow Rate FiO2 04/06/20 15:39 83 24 100 04/06/20 15:00 90/48 04/06/20 15:00 90/48 04/06/20 14:00 91/45 04/06/20 14:00 91/45 04/06/20 14:00 85 52 91/45 (60) 100 04/06/20 13:56 84 70/35 04/06/20 13:55 70/35 04/06/20 13:50 71/35 04/06/20 13:30 84 46 92/39 (56) 99 04/06/20 13:00 85 45 95/35 (55) 99 04/06/20 13:00 99/51 04/06/20 13:00 99/51 04/06/20 12:30 85 50 92/44 (60) 99 04/06/20 12:04 54/30 04/06/20 12:00 100 04/06/20 12:00 Mechanical Ventilator Mechanical Ventilator 04/06/20 12:00 89/38 04/06/20 12:00 89/38 04/06/20 12:00 100.0 84 39 91/42 (58) 97 04/06/20 11:30 86 40 93/34 (53) 99 04/06/20 11:16 85 24 100 04/06/20 11:00 91/48 04/06/20 11:00 91/48 04/06/20 11:00 85 33 96/48 (64) 99 04/06/20 10:30 86 37 93/46 (62) 99 04/06/20 10:00 87 48 96/50 (65) 99 04/06/20 10:00 96/50 04/06/20 10:00 96/50 04/06/20 09:51 87 96/45 04/06/20 09:30 89 40 102/45 (64) 94 04/06/20 09:16 100.6 04/06/20 09:09 103/51 04/06/20 09:00 99/62 04/06/20 09:00 99/62 04/06/20 09:00 90 29 99/62 (74) 88 04/06/20 08:30 90 40 89/46 (60) 86 04/06/20 08:00 100.8 90 50 102/49 (66) 89 04/06/20 08:00 100 04/06/20 08:00 90 04/06/20 08:00 102/49 04/06/20 08:00 102/49 04/06/20 08:00 Mechanical Ventilator Mechanical Ventilator 04/06/20 07:18 91 24 100 04/06/20 07:00 90 42 103/51 (68) 88 04/06/20 07:00 103/51 04/06/20 07:00 103/51 04/06/20 06:00 101/47 04/06/20 06:00 101/47 04/06/20 06:00 90 37 101/47 (65) 90 04/06/20 05:58 94/48 04/06/20 05:30 91 39 106/50 (68) 89 04/06/20 05:06 91 100/46 04/06/20 05:00 91 44 100/46 (64) 91 04/06/20 05:00 105/48 04/06/20 05:00 105/48 04/06/20 04:30 91 37 104/44 (64) 91 04/06/20 04:00 100 04/06/20 04:00 91 04/06/20 04:00 Mechanical Ventilator Mechanical Ventilator 04/06/20 04:00 102/48 04/06/20 04:00 102/48 04/06/20 04:00 100.5 91 35 102/48 (66) 92 04/06/20 03:30 91 38 103/48 (66) 91 04/06/20 03:15 91 41 103/43 (63) 92 04/06/20 03:14 97/40 04/06/20 03:02 91 25 100 04/06/20 03:00 90 33 97/40 (59) 91 04/06/20 03:00 97/40 04/06/20 03:00 97/40 04/06/20 03:00 97/40 04/06/20 02:30 91 38 102/41 (61) 93 04/06/20 02:00 91 34 112/40 (64) 93 04/06/20 02:00 112/40 5/21/20 02:00 112/40 5 01:45 90 32 93/44 (60) 92 20 01:30 90 31 96/45 (62) 92 04/06/20 01:27 90 82/42 5 01:00 90 32 91/44 (60) 92 04/06/20 01:00 82/42 520 01:00 91/44 20 01:00 91/44 04/06/20 01:00 82/42 04/06/20 00:37 65/33 5 00:30 90 27 99/49 (66) 90 04/06/20 00:00 100 04/06/20 00:00 96/47 04/06/20 00:00 96/47 04/06/20 00:00 91 04/06/20 00:00 Mechanical Ventilator Mechanical Ventilator 04/06/20 00:00 100.1 91 36 96/47 (63) 74 2020 23:00 103/43 520/20 23:00 103/43 52020 23:00 103/43 520/20 23:00 91 31 103/43 (63) 73 5/20/20 22:46 92 24 100 520/20 22:00 92 33 100/49 (66) 79 52020 22:00 109/50 520/20 22:00 109/50 520/20 21:30 90 35 106/48 (67) 79 5/20/20 21:00 90 30 100/46 (64) 80 5/20/20 21:00 97/42 520/20 21:00 97/42 5/20/20 20:30 90 39 99/45 (63) 81 5/20/20 20:00 100 5/20/20 20:00 Mechanical Ventilator Mechanical Ventilator 04/05/20 20:00 99.9 90 41 102/46 (64) 83 5/20/20 20:00 93/46 5/20/20 20:00 93/46 5/20/20 20:00 90 5/20/20 19:30 90 36 98/43 (61) 83 520/20 19:07 90 24 100 520/20 19:02 95/32 520/20 19:00 90 39 100/45 (63) 84 04/05/20 18:30 89 32 80/30 (47) 84 04/05/20 18:21 105/54 04/05/20 18:20 80/30 04/05/20 18:00 90 54 95/46 (62) 91 04/05/20 18:00 82/29 04/05/20 18:00 82/29 04/05/20 17:37 90 24 100 04/05/20 17:30 90 47 100/53 (69) 83 04/05/20 17:00 91 50 107/51 (69) 86 04/05/20 17:00 103/51 04/05/20 17:00 103/51 04/05/20 16:30 90 55 104/52 (69) 84 I&O Intake and Output 04/05/20 04/06/20 19:00 07:00 Intake Total 1996.421 ml 2855.581 ml Output Total 370 ml 435 ml Balance 1626.421 ml 2420.581 ml Free Water 90 ml 90 ml IV Total 1906.421 ml 2765.581 ml Tube Feeding 0 ml 0 ml Output Urine Total 370 ml 435 ml # Bowel Movements 1 Dressing: other Wound: other Drains: other Cardiovascular: RSR Respiratory: decreased breath sounds Abdomen: soft, non-tender, present bowel sounds, decreased bowel sounds Extremities: edema, no tenderness, no cyanosis, other Laboratory Tests Test 04/06/20 03:20 White Blood Count 13.8 K/UL (4.8-10.8) H Red Blood Count 2.39 M/UL (4.20-5.40) L Hemoglobin 8.7 G/DL (12.0-16.0) L Hematocrit 25.0 % (37.0-47.0) L Mean Corpuscular Volume 105 FL (80-99) H Mean Corpuscular Hemoglobin 36.5 PG (27.0-31.0) H Mean Corpuscular Hemoglobin Concent 34.9 G/DL (32.0-36.0) Red Cell Distribution Width 21.2 % (11.6-14.8) H Platelet Count 106 K/UL (150-450) L Mean Platelet Volume 9.3 FL (6.5-10.1) Neutrophils (%) (Auto) 82.7 % (45.0-75.0) H Lymphocytes (%) (Auto) 8.8 % (20.0-45.0) L Monocytes (%) (Auto) 2.4 % (1.0-10.0) Eosinophils (%) (Auto) 5.7 % (0.0-3.0) H Basophils (%) (Auto) 0.4 % (0.0-2.0) Sodium Level 126 MMOL/L (136-145) L Potassium Level 3.8 MMOL/L (3.5-5.1) Chloride Level 91 MMOL/L (98-107) L Carbon Dioxide Level 32 MMOL/L (21-32) Anion Gap 3 mmol/L (5-15) L Blood Urea Nitrogen 56 mg/dL (7-18) H Creatinine 0.7 MG/DL (0.55-1.30) Estimat Glomerular Filtration Rate > 60 mL/min (>60) Glucose Level 143 MG/DL (74-106) H Uric Acid 11.5 MG/DL (2.6-7.2) H Calcium Level 7.3 MG/DL (8.5-10.1) L Phosphorus Level 5.3 MG/DL (2.5-4.9) H Magnesium Level 2.3 MG/DL (1.8-2.4) Total Bilirubin 1.7 MG/DL (0.2-1.0) H Direct Bilirubin 0.9 MG/DL (0.0-0.3) H Aspartate Amino Transf (AST/SGOT) 460 U/L (15-37) H Alanine Aminotransferase (ALT/SGPT) 158 U/L (12-78) H Alkaline Phosphatase 471 U/L (46-116) H C-Reactive Protein, Quantitative 5.4 mg/dL (0.00-0.90) H Pro-B-Type Natriuretic Peptide 2187 pg/mL (0-125) H Total Protein 5.5 G/DL (6.4-8.2) L Albumin 1.9 G/DL (3.4-5.0) L Globulin 3.6 g/dL Albumin/Globulin Ratio 0.5 (1.0-2.7) L Plan Problems: (1) Cellulitis Assessment & Plan: bilateral lower extremity cellulitis / edema chronic venous status changes dermatitis no abscess no purulent drainage ulcerations forming. keep lower extremity elevated while in bed apply skin protectant / moisturizing cream daily okay to shower okay to wrap soft after cream abx as per ID for cellulitis okay for diet duplex ordered trend labs will follow with recs thank you No evidence of deep venous thrombosis involving the visualized veins of the RIGHT lower extremity. refused eval of left COVID ++ cxr noted cont current supportive care improving labs stable improving slowly wean pressors as tolerated Patient is acutely worsened intubated on vent support 2 pressors now worsening labs worsening Prognosis is guarded we will continue with maximal support efforts weaning vent weaning pressors leukocytosis trend lft's Diffuse bilateral interstitial and airspace opacities worsening again vent settings high on pressors worsening vent settings prognosis guarded DAILY ESTIMATED NEEDS: Needs based on obesity, cirrhosis, critical care/ 61kg abw 11-14 (actual body wt 102kg) kcals/kg 4152-9830 total kcals 1.5-2.5kg IBW (48kg IBW) g protein/kg 71-120 g total protein 25-30 mL/kg 8518-6799 total fluid mLs NUTRITION DIAGNOSIS: *Swallowing difficulty R/T respiratory failure as evidenced by pt now orally intubated, on pressor support, Covid-19 positive. *Decreased sodium and fat intake needs R/T cirrhosis dx, morbid obesity as evidenced by elev AST, elev NH3, BMI >50 (INACTIVE) CURRENT TF:NEPRO @33ml/hr-> HELD FOR RESIDUALS ENTERAL NUTRITION RECOMMENDATIONS: Nepro @ 33ml/hr x 24 hrs to provide 792ml, 1425kcal, 64g prot, 575ml free water As medically able rec to resume Nepro w/ goal of 33ml/hr x24 hrs -> flush per , HOB over 30 degrees. -------- -> WITHOUT HEMODYNAMIC STABILITY, rec trophic feeding of Nepro @ 5-10ml/hr ADDITIONAL RECOMMENDATIONS: * Calibrated bedscale wt for accurate CBW Current EMR wt 220#'s vs initial bedscale wt 283lbs * Monitor HEMODYNAMIC stability- on pressors x2 * Monitor lytes- K trend up, phos elev, rec TF change to Nepro at this time * Monitor BGs closely- on magdalena only now * Monitor LFTs: trending up (new TF order will provide 14g less fat) . (2) COVID-19 Assessment & Plan: see above Theron Sotomayor April 06, 2020 16:13
[2020-04-06] MEDS: PHENYLEPHRINE IV SCH ×2 (16:33→22:16)
[2020-04-06] MEDS: DEXTROSE IV SCH ×2 (16:33→22:16)
--- NOTE | 2020-04-06 18:04 | General Progress Note ---
Assessment/Plan Problem List: (1) Cellulitis ICD Codes: L03.90 - Cellulitis, unspecified SNOMED: [id number] Qualifiers: Qualified Codes: L03.119 - Cellulitis of unspecified part of limb Status: progressing, unchanged Assessment/Plan: respiratory failure eeg shows severe encephalopathy irreversible condition are going to talk to daughter again re withdrawal of care on mutiple pressors on full like support hcv critical condition comatose brain encephalopathy Subjective ROS Limited/Unobtainable: Yes Allergies: Coded Allergies: No Known Allergies (Unverified , 02/29/20) Objective Last 24 Hour Vital Signs Date Time Temp Pulse Resp B/P (MAP) Pulse Ox O2 Delivery O2 Flow Rate FiO2 04/06/20 17:30 83 35 95/43 (60) 100 04/06/20 17:00 84 58 89/46 (60) 99 04/06/20 16:33 84 84/41 04/06/20 16:32 84/41 04/06/20 16:30 84 53 91/46 (61) 99 04/06/20 16:00 100 04/06/20 16:00 Mechanical Ventilator Mechanical Ventilator 04/06/20 16:00 99.8 82 57 62/31 (41) 98 04/06/20 16:00 82 04/06/20 15:39 83 24 100 04/06/20 15:30 83 39 93/32 (52) 99 04/06/20 15:00 83 46 90/48 (62) 99 04/06/20 15:00 90/48 04/06/20 15:00 90/48 04/06/20 14:30 85 54 91/48 (62) 99 04/06/20 14:00 91/45 04/06/20 14:00 91/45 04/06/20 14:00 85 52 91/45 (60) 100 04/06/20 13:56 84 70/35 04/06/20 13:55 70/35 04/06/20 13:50 71/35 04/06/20 13:30 84 46 92/39 (56) 99 04/06/20 13:00 85 45 95/35 (55) 99 04/06/20 13:00 99/51 04/06/20 13:00 99/51 04/06/20 12:30 85 50 92/44 (60) 99 04/06/20 12:04 54/30 04/06/20 12:00 100 04/06/20 12:00 Mechanical Ventilator Mechanical Ventilator 04/06/20 12:00 89/38 04/06/20 12:00 89/38 04/06/20 12:00 100.0 84 39 91/42 (58) 97 04/06/20 12:00 83 04/06/20 11:30 86 40 93/34 (53) 99 04/06/20 11:16 85 24 100 04/06/20 11:00 91/48 04/06/20 11:00 91/48 04/06/20 11:00 85 33 96/48 (64) 99 04/06/20 10:30 86 37 93/46 (62) 99 04/06/20 10:00 87 48 96/50 (65) 99 04/06/20 10:00 96/50 04/06/20 10:00 96/50 04/06/20 09:51 87 96/45 04/06/20 09:30 89 40 102/45 (64) 94 04/06/20 09:16 100.6 04/06/20 09:09 103/51 04/06/20 09:00 99/62 04/06/20 09:00 99/62 04/06/20 09:00 90 29 99/62 (74) 88 04/06/20 08:30 90 40 89/46 (60) 86 04/06/20 08:00 100.8 90 50 102/49 (66) 89 04/06/20 08:00 100 04/06/20 08:00 90 04/06/20 08:00 102/49 04/06/20 08:00 102/49 04/06/20 08:00 Mechanical Ventilator Mechanical Ventilator 04/06/20 07:18 91 24 100 04/06/20 07:00 90 42 103/51 (68) 88 04/06/20 07:00 103/51 04/06/20 07:00 103/51 04/06/20 06:00 101/47 04/06/20 06:00 101/47 04/06/20 06:00 90 37 101/47 (65) 90 04/06/20 05:58 94/48 04/06/20 05:30 91 39 106/50 (68) 89 04/06/20 05:06 91 100/46 04/06/20 05:00 91 44 100/46 (64) 91 04/06/20 05:00 105/48 04/06/20 05:00 105/48 04/06/20 04:30 91 37 104/44 (64) 91 04/06/20 04:00 100 04/06/20 04:00 91 04/06/20 04:00 Mechanical Ventilator Mechanical Ventilator 04/06/20 04:00 102/48 04/06/20 04:00 102/48 04/06/20 04:00 100.5 91 35 102/48 (66) 92 04/06/20 03:30 91 38 103/48 (66) 91 04/06/20 03:15 91 41 103/43 (63) 92 04/06/20 03:14 97/40 04/06/20 03:02 91 25 100 04/06/20 03:00 90 33 97/40 (59) 91 04/06/20 03:00 97/40 04/06/20 03:00 97/40 04/06/20 03:00 97/40 04/06/20 02:30 91 38 102/41 (61) 93 04/06/20 02:00 91 34 112/40 (64) 93 04/06/20 02:00 112/40 04/06/20 02:00 112/40 04/06/20 01:45 90 32 93/44 (60) 92 04/06/20 01:30 90 31 96/45 (62) 92 04/06/20 01:27 90 82/42 04/06/20 01:00 90 32 91/44 (60) 92 04/06/20 01:00 82/42 04/06/20 01:00 91/44 04/06/20 01:00 91/44 04/06/20 01:00 82/42 04/06/20 00:37 65/33 04/06/20 00:30 90 27 99/49 (66) 90 04/06/20 00:00 100 04/06/20 00:00 96/47 04/06/20 00:00 96/47 04/06/20 00:00 91 04/06/20 00:00 Mechanical Ventilator Mechanical Ventilator 5/21/20 00:00 100.1 91 36 96/47 (63) 74 04/05/20 23:00 103/43 04/05/20 23:00 103/43 04/05/20 23:00 103/43 04/05/20 23:00 91 31 103/43 (63) 73 04/05/20 22:46 92 24 100 04/05/20 22:00 92 33 100/49 (66) 79 04/05/20 22:00 109/50 04/05/20 22:00 109/50 04/05/20 21:30 90 35 106/48 (67) 79 04/05/20 21:00 90 30 100/46 (64) 80 04/05/20 21:00 97/42 04/05/20 21:00 97/42 04/05/20 20:30 90 39 99/45 (63) 81 04/05/20 20:00 100 04/05/20 20:00 Mechanical Ventilator Mechanical Ventilator 04/05/20 20:00 99.9 90 41 102/46 (64) 83 04/05/20 20:00 93/46 04/05/20 20:00 93/46 04/05/20 20:00 90 04/05/20 19:30 90 36 98/43 (61) 83 04/05/20 19:07 90 24 100 04/05/20 19:02 95/32 04/05/20 19:00 90 39 100/45 (63) 84 04/05/20 18:30 89 32 80/30 (47) 84 04/05/20 18:21 105/54 04/05/20 18:20 80/30 Intake and Output 04/05/20 04/06/20 19:00 07:00 Intake Total 1996.421 ml 2855.581 ml Output Total 370 ml 435 ml Balance 1626.421 ml 2420.581 ml Free Water 90 ml 90 ml IV Total 1906.421 ml 2765.581 ml Tube Feeding 0 ml 0 ml Output Urine Total 370 ml 435 ml # Bowel Movements 1 Laboratory Tests 04/06/20 03:20: White Blood Count 13.8H, Red Blood Count 2.39L, Hemoglobin 8.7L, Hematocrit 25.0L, Mean Corpuscular Volume 105H, Mean Corpuscular Hemoglobin 36.5H, Mean Corpuscular Hemoglobin Concent 34.9, Red Cell Distribution Width 21.2H, Platelet Count 106L, Mean Platelet Volume 9.3, Neutrophils (%) (Auto) 82.7H, Lymphocytes (%) (Auto) 8.8L, Monocytes (%) (Auto) 2.4, Eosinophils (%) (Auto) 5.7H, Basophils (%) (Auto) 0.4, Sodium Level 126L, Potassium Level 3.8, Chloride Level 91L, Carbon Dioxide Level 32, Anion Gap 3L, Blood Urea Nitrogen 56H, Creatinine 0.7, Estimat Glomerular Filtration Rate > 60, Glucose Level 143H , Uric Acid 11.5H, Calcium Level 7.3L, Phosphorus Level 5.3H, Magnesium Level 2.3, Total Bilirubin 1.7H, Direct Bilirubin 0.9H, Aspartate Amino Transf (AST/ SGOT) 460H, Alanine Aminotransferase (ALT/SGPT) 158H, Alkaline Phosphatase 471H , C-Reactive Protein, Quantitative 5.4H, Pro-B-Type Natriuretic Peptide 2187H, Total Protein 5.5L, Albumin 1.9L, Globulin 3.6, Albumin/Globulin Ratio 0.5L Height (Feet): 5 Height (Inches): 1.00 Weight (Pounds): 230 General Appearance: lethargic Celso Moreno MD April 06, 2020 18:04
[2020-04-06] MEDS: Dyna-Hex 2% Top Sol 2oz TOPIC SCH (19:36)
--- NOTE | 2020-04-06 22:00 | Progress Note ---
DATE: 04/06/2020 SUBJECTIVE: The patient is doing poorly. She is on 3 vasopressors. She has hypercapnic respiratory failure. Her pCO2 is lower recently. She also has consumptive coagulopathy with thrombocytopenia, but off of Lovenox after 6 days of treatment. Her last serum ammonia was 80. She had a septic encephalopathy and COVID-19 pneumonia. PHYSICAL EXAMINATION: VITAL SIGNS: Blood pressure is 54/30, is 100, pulse is 85, respiratory rate is 24 on the ventilator, it has been as high as 48 today. MENTAL STATUS: The patient is comatose. Cranial nerves, pupils are 5 to 6 mm and fixed. Muscle exam, it sounds like she has decerebrate or decorticate movement in lower extremities, moving them inwards. ASSESSMENT: Patient's fixed dilated pupils could be partly due to the dopamine. We had obtained another EEG inpatient. PLAN: EEG. If no activity, then . Leonardo Acosta MD DR: Marisela JOB#: [id number] CC:
[2020-04-07] VITALS (64 sets, daily range): BP systolic 71–132; BP diastolic 28–50
--- NOTE | 2020-04-07 00:03 | Pulmonolgy Critical Care Note ---
Critical Care - Asmt/Plan Assessment/Plan: Pulmonary CCM Progress Note HPI Patient is a 59 year old woman with severe COVID 19 Pneumonia, past history of significant obesity, cirrhosis, bilateral lower extremity swelling, cellulitis Persistent severe respiratory failure. Patient had previous hospitalizations for cellulitis. PMH Hypothyroidism, Obesity, Cirrhosis, Anemia, Anxiety, Cellulitis Remains unresponsive off sedation > 48 hours, pupils dilated, minimally reactive to pain, non purposeful, not triggering ventilator, CT Head pending, not performed as COVID-19 positive. Neurology consulted. EEG severe encephalopathy Previous VQ no significant perfusion abnormality, prev LE dupplex negative, had high DDimer On three pressors Did not tolerating Proning Worsening PaO2/FIO2, P 16, FIO2 100%%, has elevated PaCO2 Renal following Hypothyroidism, elevated glucose, Endocrine following, low 9:00 AM Cortisol [facility] previously - Remdesavir requested for when available, [facility] - not available as yet Previously received IL6 inhibitor inititial dose (4mg/Kg - all that was available), subsequent dose pending, previously on steroids See earlier on 04/06/2020 Ethics/family meeting pending Allergies: No Known Allergies Past Medical History: Obesity, Cirrhosis, Anemia, Anxiety, Cellulitis, Hypothyroidism All Other Systems: negative except mentioned in HPI Physical Exam Vital Signs Noted General Appearance: Obese, no reaction to pain despite no sedation, intubated Head: normocephalic, atraumatic Eyes: pupils dilated and non responsive to light bilaterally ENT: moist MM, no LN Respiratory: Bilateral crackles, bilateral rhonchi, not overbreathing the ventilator Cardiovascular: regular rate, rhythm, HS1, HS2 RRR Gastrointestinal: Obese, soft non tender, ND Musculoskeletal: Mild edema and erythema bilateral lower extremity, patient has crusting on both feet, Neurologic: non responsive, no focal signs noted, no seizures, no response to pain Impression: Covid Pneumonia, s/p IL6 inhibitor, sp Hydroxychloroquine, Ivermectin Severe Respiratory Failure, high PEEP Persistent hypoxia, worsening PCO2 Bilateral dilated non reactive pupils, patient minimally responsive despite no sedation Not triggering ventilator currently Minimal response to pain Increased WCC - ID following ID following Bilateral Lower Extremity Cellulitis on admission Elevated NPA, severe bilateral edema - improving Cirrhosis, elevated transaminases/ammonia Splenomegaly Anemia Hypothyroidism Extremely poor prognosis Plan Neurology Consultated/CT head pending IV Antibiotics per ID S/p trial of steroids - currently 10 mg daily, being weaned to off, s/p IL6 inhibitor previously Surgery following for wounds Hematology following for anemia, observing for Neutropenia/thrombocytopenia Renal following for hypernatremia/volume status Endocrine following for Hypothyroidism, on ISS Monitor labs Bronchodilators PPX - SCD AC VC Proning PRN Supplement electrolytes PRN Albuterol PRN MDI [employer] Medications Previously d/w Patients daughter Tri - discussed grave prognosis, possibility of patient having had possible stroke/IC event, suggested DNAR - wants full code Case d/w RN Previously [facility] - Remdesavir ordered, awaiting supply Labs Noted Chest X-Ray: Cardiomegaly, left lower lobe atelectasis versus effusion, worsening infiltrates/congestion Subjective ROS Limited/Unobtainable: No Constitutional: Reports: no symptoms Gastrointestinal/Abdominal: Reports: no symptoms Musculoskeletal: Reports: other - SOB Allergies: Coded Allergies: No Known Allergies (Unverified , 02/29/20) ICU time 50 minutes Critical Care - Objective Last 24 Hour Vital Signs Date Time Temp Pulse Resp B/P (MAP) Pulse Ox O2 Delivery O2 Flow Rate FiO2 04/06/20 23:24 82 24 100 04/06/20 23:15 81 24 96/48 (64) 99 04/06/20 23:00 81 24 93/47 (62) 100 04/06/20 23:00 93/47 04/06/20 23:00 93/47 04/06/20 22:45 81 24 98/49 (65) 100 04/06/20 22:30 81 24 96/47 (63) 100 04/06/20 22:16 83 94/49 04/06/20 22:16 94/49 04/06/20 22:00 94/49 04/06/20 22:00 94/49 04/06/20 22:00 83 24 94/49 (64) 100 04/06/20 21:45 83 24 99/47 (64) 100 04/06/20 21:30 83 24 101/44 (63) 100 04/06/20 21:00 95/48 04/06/20 21:00 95/48 04/06/20 21:00 82 24 93/43 (60) 100 04/06/20 20:45 82 24 100/36 (57) 100 04/06/20 20:30 82 24 102/50 (67) 100 04/06/20 20:23 95/47 04/06/20 20:15 82 24 96/41 (59) 99 04/06/20 20:00 Mechanical Ventilator Mechanical Ventilator 04/06/20 20:00 100.2 83 24 95/47 (63) 99 20 20:00 100 20 20:00 95/47 20 20:00 95/47 20 20:00 87 04/06/20 19:45 83 24 92/42 (59) 100 04/06/20 19:44 83 24 100 04/06/20 19:36 88/40 04/06/20 19:33 82 24 78/36 (50) 99 04/06/20 19:30 83 24 88/40 (56) 100 04/06/20 19:00 99/47 20 19:00 99/47 04/06/20 19:00 83 46 99/47 (64) 100 04/06/20 18:30 83 39 94/46 (62) 99 04/06/20 18:00 95/46 20 18:00 95/46 04/06/20 18:00 82 24 95/46 (62) 100 04/06/20 17:30 83 35 95/43 (60) 100 04/06/20 17:04 89/46 04/06/20 17:04 89/46 04/06/20 17:00 84 58 89/46 (60) 99 04/06/20 16:33 84 84/41 04/06/20 16:32 84/41 04/06/20 16:30 84 53 91/46 (61) 99 20 16:30 84/41 20 16:00 100 04/06/20 16:00 Mechanical Ventilator Mechanical Ventilator 04/06/20 16:00 99.8 82 57 62/31 (41) 98 04/06/20 16:00 82 04/06/20 16:00 62/31 20 16:00 62/31 04/06/20 15:39 83 24 100 04/06/20 15:30 83 39 93/32 (52) 99 04/06/20 15:00 83 46 90/48 (62) 99 04/06/20 15:00 90/48 04/06/20 15:00 90/48 04/06/20 14:30 85 54 91/48 (62) 99 04/06/20 14:00 91/45 04/06/20 14:00 91/45 04/06/20 14:00 85 52 91/45 (60) 100 04/06/20 13:56 84 70/35 04/06/20 13:55 70/35 04/06/20 13:50 71/35 04/06/20 13:30 84 46 92/39 (56) 99 04/06/20 13:00 85 45 95/35 (55) 99 04/06/20 13:00 99/51 04/06/20 13:00 99/51 04/06/20 12:30 85 50 92/44 (60) 99 04/06/20 12:04 54/30 04/06/20 12:00 100 04/06/20 12:00 Mechanical Ventilator Mechanical Ventilator 04/06/20 12:00 89/38 04/06/20 12:00 89/38 04/06/20 12:00 100.0 84 39 91/42 (58) 97 04/06/20 12:00 83 04/06/20 11:30 86 40 93/34 (53) 99 04/06/20 11:16 85 24 100 04/06/20 11:00 91/48 04/06/20 11:00 91/48 04/06/20 11:00 85 33 96/48 (64) 99 04/06/20 10:30 86 37 93/46 (62) 99 04/06/20 10:00 87 48 96/50 (65) 99 04/06/20 10:00 96/50 04/06/20 10:00 96/50 04/06/20 09:51 87 96/45 04/06/20 09:30 89 40 102/45 (64) 94 04/06/20 09:16 100.6 04/06/20 09:09 103/51 04/06/20 09:00 99/62 04/06/20 09:00 99/62 04/06/20 09:00 90 29 99/62 (74) 88 04/06/20 08:30 90 40 89/46 (60) 86 04/06/20 08:00 100.8 90 50 102/49 (66) 89 04/06/20 08:00 100 04/06/20 08:00 90 04/06/20 08:00 102/49 04/06/20 08:00 102/49 04/06/20 08:00 Mechanical Ventilator Mechanical Ventilator 04/06/20 07:18 91 24 100 04/06/20 07:00 90 42 103/51 (68) 88 04/06/20 07:00 103/51 04/06/20 07:00 103/51 04/06/20 06:00 101/47 04/06/20 06:00 101/47 04/06/20 06:00 90 37 101/47 (65) 90 04/06/20 05:58 94/48 04/06/20 05:30 91 39 106/50 (68) 89 04/06/20 05:06 91 100/46 04/06/20 05:00 91 44 100/46 (64) 91 04/06/20 05:00 105/48 04/06/20 05:00 105/48 04/06/20 04:30 91 37 104/44 (64) 91 04/06/20 04:00 100 04/06/20 04:00 91 04/06/20 04:00 Mechanical Ventilator Mechanical Ventilator 04/06/20 04:00 102/48 04/06/20 04:00 102/48 04/06/20 04:00 100.5 91 35 102/48 (66) 92 04/06/20 03:30 91 38 103/48 (66) 91 04/06/20 03:15 91 41 103/43 (63) 92 04/06/20 03:14 97/40 04/06/20 03:02 91 25 100 04/06/20 03:00 90 33 97/40 (59) 91 04/06/20 03:00 97/40 04/06/20 03:00 97/40 04/06/20 03:00 97/40 04/06/20 02:30 91 38 102/41 (61) 93 04/06/20 02:00 91 34 112/40 (64) 93 04/06/20 02:00 112/40 04/06/20 02:00 112/40 04/06/20 01:45 90 32 93/44 (60) 92 04/06/20 01:30 90 31 96/45 (62) 92 04/06/20 01:27 90 82/42 04/06/20 01:00 90 32 91/44 (60) 92 04/06/20 01:00 82/42 04/06/20 01:00 91/44 04/06/20 01:00 91/44 04/06/20 01:00 82/42 04/06/20 00:37 65/33 04/06/20 00:30 90 27 99/49 (66) 90 Accucheck: 125 Critical Care - Subjective ROS Limited/Unobtainable: No Condition: critical IV Access: PICC FI02: 100 Vent Support Breath Rate: 24 Vent Support Mode: AC Vent Tidal Volume: 400 Sputum Amount: Scant PEEP: 18.0 PIP: 36 Tube Feeding Amount: 0 I&O: Intake and Output 04/06/20 04/07/20 19:00 07:00 Intake Total 2782.859 ml 692.808 ml Output Total 120 ml 20 ml Balance 2662.859 ml 672.808 ml Free Water 60 ml IV Total 2722.859 ml 692.808 ml Tube Feeding 0 ml 0 ml Output Urine Total 120 ml 20 ml ET-Tube: 7.5 ET Position: 21 Doron Carrillo MD April 07, 2020 00:03
[2020-04-07] MEDS: DOPamine 400mg/250ml 250 ML IV SCH ×8 (01:11→19:31)
[2020-04-07] MEDS: Norepinephrine Bitartrate 16 MG in D5W 500ml 550 ML IV SCH ×3 (05:13→22:23)
[2020-04-07] MEDS: PHENYLEPHRINE IV SCH ×3 (05:30→20:47)
[2020-04-07] MEDS: Lactulose 20gm/30ml UDC ORAL SCH ×3 (05:30→22:00)
[2020-04-07] MEDS: Meropenem 1 GM in NS 55 ML IVPB SCH ×3 (05:30→21:59)
[2020-04-07] MEDS: DEXTROSE IV SCH ×3 (05:30→20:47)
[2020-04-07] MEDS: Vancomycin 500 MG in NS 110 ML IVPB SCH ×2 (05:30→17:13)
[2020-04-07] MEDS: Metoclopramide 10mg/2ml Inj IVP SCH ×3 (05:30→17:13)
[2020-04-07 05:33] LABS: HEMOGLOBIN 8.7 G/DL (12.0-16.0); MEAN CORPUSCULAR VOLUME 104 FL (80-99); PLATELET COUNT 99 K/UL (150-450); RED CELL DISTRIBUTION WIDTH 19.7 % (11.6-14.8); WHITE BLOOD COUNT 10.9 K/UL (4.8-10.8)
[2020-04-07] MEDS: NovoLOG Insulin Flexpen SUBQ SCH ×4 (05:55→18:00)
[2020-04-07 06:16] LABS: ALANINE AMINOTRANSFERASE 126 U/L (12-78); ALBUMIN 1.8 G/DL (3.4-5.0); ALBUMIN/GLOBULIN RATIO 0.5 (1.0-2.7); ALKALINE PHOSPHATASE 435 U/L (46-116); ANION GAP 4 mmol/L (5-15); ASPARTATE AMINO TRANSFERASE 379 U/L (15-37); BILIRUBIN,TOTAL 1.6 MG/DL (0.2-1.0); BLOOD UREA NITROGEN 60 mg/dL (7-18); CALCIUM 7.5 MG/DL (8.5-10.1); CARBON DIOXIDE 28 MMOL/L (21-32); CHLORIDE 87 MMOL/L (98-107); CREATININE 0.9 MG/DL (0.55-1.30); PHOSPHORUS 5.8 MG/DL (2.5-4.9); POTASSIUM 4.2 MMOL/L (3.5-5.1)
[2020-04-07 06:23] LABS: SODIUM 119 MMOL/L (136-145)
[2020-04-07 06:41] LABS: BILIRUBIN,DIRECT 0.8 MG/DL (0.0-0.3)
--- NOTE | 2020-04-07 07:01 | General Progress Note ---
Assessment/Plan Problem List: (1) Hypothyroid ICD Codes: E03.9 - Hypothyroidism, unspecified SNOMED: 80883862 (2) COVID-19 ICD Codes: U07.1 - COVID-19 SNOMED: 184826909 (3) Respiratory failure with hypoxia ICD Codes: J96.91 - Respiratory failure, unspecified with hypoxia SNOMED: [id number] Qualifiers: Qualified Codes: J96.01 - Acute respiratory failure with hypoxia (4) Cellulitis ICD Codes: L03.90 - Cellulitis, unspecified SNOMED: 469254317 Qualifiers: Qualified Codes: L03.119 - Cellulitis of unspecified part of limb (5) Hyperglycemia ICD Codes: R73.9 - Hyperglycemia, unspecified SNOMED: 41469572 Status: not improved Assessment/Plan: grim prognosis no need for basal insulin continue Novolog sliding scale every 6 hours TSH normalized continue Levothyroxine 50 mcg IV every other day Subjective ROS Limited/Unobtainable: Yes Allergies: Coded Allergies: No Known Allergies (Unverified , 02/29/20) Subjective events noted - interval notes reviewed comatose glucose values are stable Item Value Date Time Bedside Blood Glucose 140 mg/dl H 04/07/20 0555 Bedside Blood Glucose 128 mg/dl H 04/07/20 0000 Bedside Blood Glucose 125 mg/dl H 04/06/20 1750 Bedside Blood Glucose 130 mg/dl H 04/06/20 1200 Bedside Blood Glucose 123 mg/dl H 04/06/20 0559 Bedside Blood Glucose 144 mg/dl H 04/05/20 2353 Objective Last 24 Hour Vital Signs Date Time Temp Pulse Resp B/P (MAP) Pulse Ox O2 Delivery O2 Flow Rate FiO2 04/07/20 06:29 94/41 04/07/20 06:28 94/41 04/07/20 06:00 94/47 04/07/20 06:00 94/47 04/07/20 06:00 77 24 91/46 (61) 100 04/07/20 05:30 77 24 94/46 (62) 100 04/07/20 05:30 77 91/44 04/07/20 05:15 77 24 91/41 (58) 100 04/07/20 05:13 91/44 04/07/20 05:00 77 24 93/48 (63) 100 04/07/20 05:00 91/44 04/07/20 05:00 91/44 04/07/20 04:45 77 24 91/44 (60) 100 04/07/20 04:30 77 24 94/45 (61) 100 04/07/20 04:15 77 24 94/36 (55) 100 04/07/20 04:11 90/44 04/07/20 04:00 99.4 78 24 90/44 (59) 98 04/07/20 04:00 100 04/07/20 04:00 77 04/07/20 04:00 96/42 04/07/20 04:00 96/42 04/07/20 04:00 Mechanical Ventilator Mechanical Ventilator 04/07/20 03:45 78 24 96/50 (65) 98 04/07/20 03:30 79 24 95/46 (62) 98 04/07/20 03:15 80 24 92/46 (61) 95 04/07/20 03:12 81 24 100 04/07/20 03:00 80 24 97/50 (66) 95 04/07/20 03:00 93/45 04/07/20 03:00 93/45 04/07/20 02:45 80 50 97/47 (64) 94 04/07/20 02:36 82 57 132/38 (69) 92 04/07/20 02:30 79 18 76/39 (51) 97 04/07/20 02:15 81 15 98/46 (63) 99 04/07/20 02:00 111/36 04/07/20 02:00 111/36 04/07/20 02:00 81 20 95/47 (63) 99 04/07/20 01:45 81 16 93/50 (64) 100 04/07/20 01:30 80 16 94/46 (62) 100 04/07/20 01:15 80 18 93/43 (60) 99 04/07/20 01:11 96/47 04/07/20 01:00 93/43 04/07/20 01:00 93/43 04/07/20 01:00 81 17 96/47 (63) 100 04/07/20 00:45 82 16 94/47 (63) 100 04/07/20 00:30 82 21 93/48 (63) 99 04/07/20 00:15 82 24 97/43 (61) 100 04/07/20 00:00 Mechanical Ventilator Mechanical Ventilator 04/07/20 00:00 100 04/07/20 00:00 99/47 04/07/20 00:00 99/46 04/07/20 00:00 82 24 99/46 (63) 100 04/07/20 00:00 83 21 23:45 82 24 95/48 (64) 99 04/06/20 23:30 82 24 91/43 (59) 100 04/06/20 23:24 82 24 100 04/06/20 23:15 81 24 96/48 (64) 99 04/06/20 23:00 81 24 93/47 (62) 100 04/06/20 23:00 93/47 04/06/20 23:00 93/47 04/06/20 22:45 81 24 98/49 (65) 100 04/06/20 22:30 81 24 96/47 (63) 100 04/06/20 22:16 83 94/49 04/06/20 22:16 94/49 04/06/20 22:00 94/49 04/06/20 22:00 94/49 04/06/20 22:00 83 24 94/49 (64) 100 04/06/20 21:45 83 24 99/47 (64) 100 04/06/20 21:30 83 24 101/44 (63) 100 04/06/20 21:00 95/48 04/06/20 21:00 95/48 04/06/20 21:00 82 24 93/43 (60) 100 04/06/20 20:45 82 24 100/36 (57) 100 04/06/20 20:30 82 24 102/50 (67) 100 04/06/20 20:23 95/47 04/06/20 20:15 82 24 96/41 (59) 99 04/06/20 20:00 Mechanical Ventilator Mechanical Ventilator 04/06/20 20:00 100.2 83 24 95/47 (63) 99 04/06/20 20:00 100 20 20:00 95/47 2120 20:00 95/47 20 20:00 87 04/06/20 19:45 83 24 92/42 (59) 100 5/21/20 19:44 83 24 100 04/06/20 19:36 88/40 04/06/20 19:33 82 24 78/36 (50) 99 20 19:30 83 24 88/40 (56) 100 20 19:00 99/47 04/06/20 19:00 99/47 04/06/20 19:00 83 46 99/47 (64) 100 04/06/20 18:30 83 39 94/46 (62) 99 04/06/20 18:00 95/46 04/06/20 18:00 95/46 04/06/20 18:00 82 24 95/46 (62) 100 04/06/20 17:30 83 35 95/43 (60) 100 04/06/20 17:04 89/46 04/06/20 17:04 89/46 04/06/20 17:00 84 58 89/46 (60) 99 04/06/20 16:33 84 84/41 04/06/20 16:32 84/41 04/06/20 16:30 84 53 91/46 (61) 99 04/06/20 16:30 84/41 04/06/20 16:00 100 04/06/20 16:00 Mechanical Ventilator Mechanical Ventilator 04/06/20 16:00 99.8 82 57 62/31 (41) 98 04/06/20 16:00 82 04/06/20 16:00 62/31 04/06/20 16:00 62/31 04/06/20 15:39 83 24 100 04/06/20 15:30 83 39 93/32 (52) 99 04/06/20 15:00 83 46 90/48 (62) 99 04/06/20 15:00 90/48 04/06/20 15:00 90/48 04/06/20 14:30 85 54 91/48 (62) 99 20 14:00 91/45 04/06/20 14:00 91/45 04/06/20 14:00 85 52 91/45 (60) 100 04/06/20 13:56 84 70/35 04/06/20 13:55 70/35 04/06/20 13:50 71/35 04/06/20 13:30 84 46 92/39 (56) 99 04/06/20 13:00 85 45 95/35 (55) 99 04/06/20 13:00 99/51 04/06/20 13:00 99/51 04/06/20 12:30 85 50 92/44 (60) 99 04/06/20 12:04 54/30 04/06/20 12:00 100 04/06/20 12:00 Mechanical Ventilator Mechanical Ventilator 04/06/20 12:00 89/38 04/06/20 12:00 89/38 04/06/20 12:00 100.0 84 39 91/42 (58) 97 04/06/20 12:00 83 04/06/20 11:30 86 40 93/34 (53) 99 04/06/20 11:16 85 24 100 04/06/20 11:00 91/48 04/06/20 11:00 91/48 04/06/20 11:00 85 33 96/48 (64) 99 04/06/20 10:30 86 37 93/46 (62) 99 04/06/20 10:00 87 48 96/50 (65) 99 04/06/20 10:00 96/50 04/06/20 10:00 96/50 04/06/20 09:51 87 96/45 04/06/20 09:30 89 40 102/45 (64) 94 04/06/20 09:16 100.6 04/06/20 09:09 103/51 04/06/20 09:00 99/62 04/06/20 09:00 99/62 04/06/20 09:00 90 29 99/62 (74) 88 04/06/20 08:30 90 40 89/46 (60) 86 04/06/20 08:00 100.8 90 50 102/49 (66) 89 04/06/20 08:00 100 04/06/20 08:00 90 04/06/20 08:00 102/49 04/06/20 08:00 102/49 04/06/20 08:00 Mechanical Ventilator Mechanical Ventilator 04/06/20 07:18 91 24 100 04/06/20 07:00 90 42 103/51 (68) 88 04/06/20 07:00 103/51 04/06/20 07:00 103/51 Intake and Output 04/06/20 04/07/20 19:00 07:00 Intake Total 2782.859 ml 2039.337 ml Output Total 120 ml 55 ml Balance 2662.859 ml 1984.337 ml Free Water 60 ml IV Total 2722.859 ml 2039.337 ml Tube Feeding 0 ml 0 ml Output Urine Total 120 ml 55 ml Laboratory Tests 04/07/20 03:11: White Blood Count 10.9H, Red Blood Count 2.40L, Hemoglobin 8.7L, Hematocrit 25.0L, Mean Corpuscular Volume 104H, Mean Corpuscular Hemoglobin 36.1H, Mean Corpuscular Hemoglobin Concent 34.7, Red Cell Distribution Width 19.7H, Platelet Count 99L, Mean Platelet Volume 9.0, Neutrophils (%) (Auto) , Lymphocytes (%) (Auto) , Monocytes (%) (Auto) , Eosinophils (%) (Auto) , Basophils (%) (Auto) , Sodium Level 119*L, Potassium Level 4.2, Chloride Level 87L, Carbon Dioxide Level 28, Anion Gap 4L, Blood Urea Nitrogen 60H, Creatinine 0.9, Estimat Glomerular Filtration Rate > 60, Glucose Level 146H, Uric Acid 11.5H, Calcium Level 7.5L, Phosphorus Level 5.8H, Magnesium Level 2.4, Total Bilirubin 1.6H, Direct Bilirubin 0.8H, Aspartate Amino Transf (AST/SGOT) 379H, Alanine Aminotransferase (ALT/SGPT) 126H, Alkaline Phosphatase 435H, Troponin I 0.060H, C-Reactive Protein, Quantitative 7.1H, Pro-B-Type Natriuretic Peptide 2105H, Total Protein 5.5L, Albumin 1.8L, Globulin 3.7, Albumin/Globulin Ratio 0.5L Height (Feet): 5 Height (Inches): 1.00 Weight (Pounds): 235 General Appearance: other - comatose Neck: normal alignment Cardiovascular: normal rate Respiratory/Chest: decreased breath sounds Abdomen: normal bowel sounds Objective Current Medications Medications (Trade) Dose Ordered Sig/Dolores Route PRN Reason Start Time Stop Time Status Last Admin Dose Admin Acetaminophen (Tylenol) 650 mg Q4H PRN NG Temp >100.5 04/01/20 22:00 05/01/20 21:59 04/06/20 08:46 Acetaminophen (Tylenol) 650 mg Q4H PRN ORAL Mild Pain (Pain Scale 1-3) 03/13/20 14:53 04/12/20 14:52 04/01/20 21:26 Allopurinol (allopurinoL) 300 mg DAILY NG 04/04/20 10:32 05/04/20 10:31 04/06/20 08:45 Chlorhexidine Gluconate (Lucretia-Hex 2%) 1 applic DAILY@2000 TOPIC 03/13/20 20:00 06/11/20 19:59 04/06/20 19:36 Dextrose (Dextrose 50%) 25 ml Q30M PRN IV Hypoglycemia 04/03/20 00:00 07/02/20 00:00 Dextrose (Dextrose 50%) 50 ml Q30M PRN IV Hypoglycemia 04/03/20 00:00 07/02/20 00:00 Dopamine HCl/ Dextrose 250 ml @ 0 mls/hr Q24H IV 03/16/20 19:30 06/14/20 19:29 04/07/20 06:29 Fluconazole (Diflucan) 200 mg DAILY NG 03/31/20 11:00 04/11/20 10:59 04/06/20 08:45 Hydralazine HCl (Apresoline) 10 mg Q6H PRN IV For High Blood Pressure 03/24/20 16:45 06/22/20 16:44 Insulin Aspart (NovoLOG) Q6HR SUBQ 04/03/20 00:00 07/02/20 00:00 04/05/20 23:53 Lactulose (Cephulac) 40 gm Q8HR ORAL 04/01/20 14:00 04/30/20 17:59 04/07/20 05:30 Levothyroxine Sodium (Synthroid) 50 mcg QOD IV 04/05/20 09:00 04/17/20 11:59 04/05/20 09:40 Meropenem 1 gm/ Sodium Chloride 55 ml @ 110 mls/hr Q8HR IVPB 03/29/20 14:00 04/11/20 13:59 04/07/20 05:30 Metoclopramide HCl (Reglan) 10 mg EVERY 6 HOURS IVP 04/04/20 12:00 05/04/20 11:59 04/07/20 05:30 Midodrine (Pro-Amatine) 10 mg THREE TIMES A DAY NG 03/27/20 09:00 06/20/20 12:29 04/06/20 17:04 Norepinephrine Bitartrate 16 mg/ Dextrose 566 ml @ 0 mls/hr Q24H IV 04/04/20 23:00 05/04/20 22:59 04/07/20 05:13 Phenylephrine HCl 100 mg/Dextrose 250 ml @ 0 mls/hr Q24H IV 04/06/20 16:00 05/06/20 15:59 04/07/20 05:30 Vancomycin HCl (Vanco rx to dose) 1 ea DAILY PRN MISC Per rx protocol 04/02/20 11:00 05/02/20 10:59 Vancomycin HCl 500 mg/Sodium Chloride 110 ml @ 110 mls/hr Q12HR@0600,1800 IVPB 04/02/20 18:00 04/11/20 17:59 04/07/20 05:30 Vasopressin 100 units/Sodium Chloride 100 ml @ 0 mls/hr Q24H PRN IV For hypotension 03/16/20 11:00 04/15/20 10:59 04/06/20 08:45 Johan Christopher MD April 07, 2020 07:01
[2020-04-07] MEDS: Fluconazole 100mg tab NG SCH (08:41)
[2020-04-07] MEDS: Midodrine 10mg tab NG SCH ×3 (08:41→17:13)
--- NOTE | 2020-04-07 09:52 | General Progress Note ---
Assessment/Plan Status: not improved Assessment/Plan: macrocytic anemia elevated LFTS cirrhosis cellulitis elevated Ammonia levels respiratory distress>>> now failure COVID positive pna NGTF on hold for elevated residuals reglan 5 mg iv Q6 for elevate residuals Xifaxan and lactulose monitor ammonia level fu stool ob>>>neg abx per id hepatitis panel>>>>>positive for hep C>>> needs out patient fu poor prognosis doing worse, on 4 pressors will fu Subjective ROS Limited/Unobtainable: No Allergies: Coded Allergies: No Known Allergies (Unverified , 02/29/20) Objective Last 24 Hour Vital Signs Date Time Temp Pulse Resp B/P (MAP) Pulse Ox O2 Delivery O2 Flow Rate FiO2 04/07/20 07:10 78 24 100 04/07/20 07:00 78 24 89/48 (62) 99 04/07/20 07:00 89/48 04/07/20 07:00 89/48 04/07/20 06:29 94/41 04/07/20 06:28 94/41 04/07/20 06:00 94/47 04/07/20 06:00 94/47 04/07/20 06:00 77 24 91/46 (61) 100 04/07/20 05:30 77 24 94/46 (62) 100 04/07/20 05:30 77 91/44 04/07/20 05:15 77 24 91/41 (58) 100 04/07/20 05:13 91/44 04/07/20 05:00 77 24 93/48 (63) 100 04/07/20 05:00 91/44 04/07/20 05:00 91/44 04/07/20 04:45 77 24 91/44 (60) 100 04/07/20 04:30 77 24 94/45 (61) 100 04/07/20 04:15 77 24 94/36 (55) 100 04/07/20 04:11 90/44 04/07/20 04:00 99.4 78 24 90/44 (59) 98 04/07/20 04:00 100 04/07/20 04:00 77 04/07/20 04:00 96/42 04/07/20 04:00 96/42 04/07/20 04:00 Mechanical Ventilator Mechanical Ventilator 04/07/20 03:45 78 24 96/50 (65) 98 04/07/20 03:30 79 24 95/46 (62) 98 04/07/20 03:15 80 24 92/46 (61) 95 04/07/20 03:12 81 24 100 04/07/20 03:00 80 24 97/50 (66) 95 04/07/20 03:00 93/45 04/07/20 03:00 93/45 04/07/20 02:45 80 50 97/47 (64) 94 04/07/20 02:36 82 57 132/38 (69) 92 04/07/20 02:30 79 18 76/39 (51) 97 04/07/20 02:15 81 15 98/46 (63) 99 04/07/20 02:00 111/36 04/07/20 02:00 111/36 04/07/20 02:00 81 20 95/47 (63) 99 04/07/20 01:45 81 16 93/50 (64) 100 04/07/20 01:30 80 16 94/46 (62) 100 04/07/20 01:15 80 18 93/43 (60) 99 04/07/20 01:11 96/47 04/07/20 01:00 93/43 04/07/20 01:00 93/43 04/07/20 01:00 81 17 96/47 (63) 100 04/07/20 00:45 82 16 94/47 (63) 100 04/07/20 00:30 82 21 93/48 (63) 99 04/07/20 00:15 82 24 97/43 (61) 100 04/07/20 00:00 Mechanical Ventilator Mechanical Ventilator 04/07/20 00:00 100 04/07/20 00:00 99/47 04/07/20 00:00 99/46 04/07/20 00:00 82 24 99/46 (63) 100 04/07/20 00:00 83 04/06/20 23:45 82 24 95/48 (64) 99 04/06/20 23:30 82 24 91/43 (59) 100 04/06/20 23:24 82 24 100 04/06/20 23:15 81 24 96/48 (64) 99 04/06/20 23:00 81 24 93/47 (62) 100 5/21/20 23:00 93/47 520 23:00 93/47 20 22:45 81 24 98/49 (65) 100 20 22:30 81 24 96/47 (63) 100 521/20 22:16 83 94/49 520 22:16 94/49 521/20 22:00 94/49 52120 22:00 94/49 2120 22:00 83 24 94/49 (64) 100 2120 21:45 83 24 99/47 (64) 100 20 21:30 83 24 101/44 (63) 100 20 21:00 95/48 20 21:00 95/48 04/06/20 21:00 82 24 93/43 (60) 100 20 20:45 82 24 100/36 (57) 100 04/06/20 20:30 82 24 102/50 (67) 100 20 20:23 95/47 04/06/20 20:15 82 24 96/41 (59) 99 20 20:00 Mechanical Ventilator Mechanical Ventilator 04/06/20 20:00 100.2 83 24 95/47 (63) 99 20 20:00 100 20 20:00 95/47 20 20:00 95/47 20 20:00 87 20 19:45 83 24 92/42 (59) 100 20 19:44 83 24 100 20 19:36 88/40 521/20 19:33 82 24 78/36 (50) 99 20 19:30 83 24 88/40 (56) 100 21/20 19:00 99/47 52120 19:00 99/47 20 19:00 83 46 99/47 (64) 100 04/06/20 18:30 83 39 94/46 (62) 99 21/20 18:00 95/46 521/20 18:00 95/46 2120 18:00 82 24 95/46 (62) 100 5/21/20 17:30 83 35 95/43 (60) 100 04/06/20 17:04 89/46 04/06/20 17:04 89/46 04/06/20 17:00 84 58 89/46 (60) 99 04/06/20 16:33 84 84/41 04/06/20 16:32 84/41 04/06/20 16:30 84 53 91/46 (61) 99 04/06/20 16:30 84/41 04/06/20 16:00 100 04/06/20 16:00 Mechanical Ventilator Mechanical Ventilator 04/06/20 16:00 99.8 82 57 62/31 (41) 98 04/06/20 16:00 82 04/06/20 16:00 62/31 04/06/20 16:00 62/31 04/06/20 15:39 83 24 100 04/06/20 15:30 83 39 93/32 (52) 99 04/06/20 15:00 83 46 90/48 (62) 99 04/06/20 15:00 90/48 04/06/20 15:00 90/48 04/06/20 14:30 85 54 91/48 (62) 99 04/06/20 14:00 91/45 04/06/20 14:00 91/45 04/06/20 14:00 85 52 91/45 (60) 100 04/06/20 13:56 84 70/35 04/06/20 13:55 70/35 04/06/20 13:50 71/35 04/06/20 13:30 84 46 92/39 (56) 99 04/06/20 13:00 85 45 95/35 (55) 99 04/06/20 13:00 99/51 04/06/20 13:00 99/51 04/06/20 12:30 85 50 92/44 (60) 99 04/06/20 12:04 54/30 04/06/20 12:00 100 04/06/20 12:00 Mechanical Ventilator Mechanical Ventilator 04/06/20 12:00 89/38 04/06/20 12:00 89/38 04/06/20 12:00 100.0 84 39 91/42 (58) 97 04/06/20 12:00 83 04/06/20 11:30 86 40 93/34 (53) 99 04/06/20 11:16 85 24 100 04/06/20 11:00 91/48 04/06/20 11:00 91/48 04/06/20 11:00 85 33 96/48 (64) 99 04/06/20 10:30 86 37 93/46 (62) 99 04/06/20 10:00 87 48 96/50 (65) 99 04/06/20 10:00 96/50 04/06/20 10:00 96/50 04/06/20 09:51 87 96/45 Intake and Output 04/06/20 04/07/20 19:00 07:00 Intake Total 2782.859 ml 2292.007 ml Output Total 120 ml 60 ml Balance 2662.859 ml 2232.007 ml Free Water 60 ml IV Total 2722.859 ml 2292.007 ml Tube Feeding 0 ml 0 ml Output Urine Total 120 ml 60 ml Laboratory Tests 04/07/20 03:11: White Blood Count 10.9H, Red Blood Count 2.40L, Hemoglobin 8.7L, Hematocrit 25.0L, Mean Corpuscular Volume 104H, Mean Corpuscular Hemoglobin 36.1H, Mean Corpuscular Hemoglobin Concent 34.7, Red Cell Distribution Width 19.7H, Platelet Count 99L, Mean Platelet Volume 9.0, Neutrophils (%) (Auto) , Lymphocytes (%) (Auto) , Monocytes (%) (Auto) , Eosinophils (%) (Auto) , Basophils (%) (Auto) , Sodium Level 119*L, Potassium Level 4.2, Chloride Level 87L, Carbon Dioxide Level 28, Anion Gap 4L, Blood Urea Nitrogen 60H, Creatinine 0.9, Estimat Glomerular Filtration Rate > 60, Glucose Level 146H, Uric Acid 11.5H, Calcium Level 7.5L, Phosphorus Level 5.8H, Magnesium Level 2.4, Total Bilirubin 1.6H, Direct Bilirubin 0.8H, Aspartate Amino Transf (AST/SGOT) 379H, Alanine Aminotransferase (ALT/SGPT) 126H, Alkaline Phosphatase 435H, Troponin I 0.060H, C-Reactive Protein, Quantitative 7.1H, Pro-B-Type Natriuretic Peptide 2105H, Total Protein 5.5L, Albumin 1.8L, Globulin 3.7, Albumin/Globulin Ratio 0.5L 04/07/20 07:25: Arterial Blood pH 7.328L, Arterial Blood Partial Pressure CO2 55.2*H, Arterial Blood Partial Pressure O2 96.4, Arterial Blood HCO3 28.3H, Arterial Blood Oxygen Saturation 95.8, Arterial Blood Base Excess 1.8, Joaquin Test Positive Height (Feet): 5 Height (Inches): 1.00 Weight (Pounds): 235 General Appearance: lethargic EENT: normal ENT inspection Neck: supple Cardiovascular: normal rate Respiratory/Chest: decreased breath sounds Extremities: non-tender Tam Spicer MD April 07, 2020 09:52
--- NOTE | 2020-04-07 10:27 | Nephrology Progress Note ---
Assessment/Plan Problem List: (1) Respiratory failure with hypoxia (2) Electrolyte imbalance Assessment: Hyponatremia resolved -hyperkalemia resolved (3) COVID-19 (4) Cellulitis (5) Hypothyroid Assessment Hyponatremia. Serum sodium started drifting down from March 16. Hyperkalemia. Septic shock. Acute respiratory failure. Respiratory failure and COVID pneumonia. History of cirrhosis/splenomegaly Anemia Bilateral lower extremity cellulitis Plan EEG: This is a severely abnormal EEG characterized by very low amplitude, slow activity with no reactivity to external stimulation. COMMENT: The study is consistent with severe encephalopathy. Clinical correlation is recommended. April 07: Patient on 4 pressors Unresponsive Blood pressure 90 systolic on 4 pressors As severe electrolyte imbalances including hypo-natremia Not a dialysis candidate Remains full code Family meeting is planned Prognosis is dismal April 06: Patient remains unresponsive on 3 pressors Edematous On ventilator Today's labs reviewed Hyponatremia and anemia worsened Overall poor prognosis yet remains full code Not much to add from renal standpoint of view at this stage since she is hemodynamically very unstable April 05: Patient is doing poorly on 3 pressors and remains unresponsive Remains full code Not much to add from renal standpoint of view Discussed with DAO Little Will give a trial of 3% saline for hyponatremia April 04: Patient stable from renal standpoint to view We will continue to watch BUN/creatinine and electrolytes Will add allopurinol for high uric acid Continue per consultants Remains full code Per orders March 18: Hypotensive, on pressors as needed Unresponsive Serum sodium improved Will administer another bolus of 3% saline Continue per consultants Not much to add from renal standpoint to view Prognosis poor, remain full code April 02: Blood pressure is maintained on pressors Remains unresponsive Today's lab reviewed 3% saline ordered EEG is severely abnormal Remains full code however prognosis is poor Discussed with DAO Huber ED April 01: Patient became hypoglycemic so long-acting insulin is held Potassium is 5.7 so albumin and Lasix in addition to Kayexalate is ordered Increase D5W to 100 cc an hour Blood sugar management per Endo Discussed with DAO Gabriel EEG ordered results pending Overall prognosis poor March 15: Increase lactulose dose 1 dose of Kayexalate Continue to monitor liver enzymes Patient unresponsive despite discontinuation of all mind altering medications Neuro eval? March 30 Electrolytes and bicarb improved We will cut down D5W IV fluid Blood sugar better controlled Liver enzymes still remains elevated Discussed with RN May 13: Worsening leukocytosis Serum sodium lowering Blood sugar still elevated need insulin adjustment Continue to monitor electrolytes and renal parameters Continue per pulmonary Discussed with DAO Sarkar March 28: Serum sodium down to 160 Continue with D5W Continue per pulmonary March 27: Serum sodium vahe Patient retaining CO2 Will start D5W IV fluid Hold Diamox for now until further comments from chip loft worker Continue to monitor electrolytes Midodrine dose increased March 26: Remains unstable. Lasix and potassium chloride discontinued. IV Diamox initiated. ABG noted. Midodrine initiated. Continue per pulmonary and ID. Statins discontinued due to elevated liver enzymes. Continue to monitor electrolytes and renal parameters and ABG. Patient remains full code. 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 per shovel engineer Taper steroids's deferred to chip loft worker Urine sodium is below 20 Serum ammonia is elevated will start lactulose Patient on Solu-Medrol and Solu-Cortef will discontinue Solu-Cortef Will try to gently diurese for severe edema meanwhile administering albumin 25% as needed Monitor electrolytes and renal parameters We will add midodrine 10 mg 3 times a day via NG tube Decrease dosage of IV Synthroid Discussed with DAO Starr Subjective ROS Limited/Unobtainable: Yes Objective Objective Last 24 Hour Vital Signs Date Time Temp Pulse Resp B/P (MAP) Pulse Ox O2 Delivery O2 Flow Rate FiO2 04/07/20 10:00 77 43 91/38 (55) 97 04/07/20 09:30 76 51 89/38 (55) 97 04/07/20 09:00 77 51 90/46 (61) 100 04/07/20 08:30 76 41 90/48 (62) 100 04/07/20 08:00 Mechanical Ventilator Mechanical Ventilator 04/07/20 08:00 76 42 91/44 (60) 99 04/07/20 08:00 100 04/07/20 07:10 78 24 100 04/07/20 07:00 78 24 89/48 (62) 99 04/07/20 07:00 89/48 04/07/20 07:00 89/48 04/07/20 06:29 94/41 04/07/20 06:28 94/41 04/07/20 06:00 94/47 04/07/20 06:00 94/47 04/07/20 06:00 77 24 91/46 (61) 100 04/07/20 05:30 77 24 94/46 (62) 100 04/07/20 05:30 77 91/44 04/07/20 05:15 77 24 91/41 (58) 100 04/07/20 05:13 91/44 04/07/20 05:00 77 24 93/48 (63) 100 04/07/20 05:00 91/44 04/07/20 05:00 91/44 04/07/20 04:45 77 24 91/44 (60) 100 04/07/20 04:30 77 24 94/45 (61) 100 04/07/20 04:15 77 24 94/36 (55) 100 04/07/20 04:11 90/44 04/07/20 04:00 99.4 78 24 90/44 (59) 98 04/07/20 04:00 100 04/07/20 04:00 77 04/07/20 04:00 96/42 04/07/20 04:00 96/42 04/07/20 04:00 Mechanical Ventilator Mechanical Ventilator 04/07/20 03:45 78 24 96/50 (65) 98 04/07/20 03:30 79 24 95/46 (62) 98 04/07/20 03:15 80 24 92/46 (61) 95 04/07/20 03:12 81 24 100 04/07/20 03:00 80 24 97/50 (66) 95 04/07/20 03:00 93/45 04/07/20 03:00 93/45 04/07/20 02:45 80 50 97/47 (64) 94 04/07/20 02:36 82 57 132/38 (69) 92 04/07/20 02:30 79 18 76/39 (51) 97 04/07/20 02:15 81 15 98/46 (63) 99 04/07/20 02:00 111/36 04/07/20 02:00 111/36 04/07/20 02:00 81 20 95/47 (63) 99 04/07/20 01:45 81 16 93/50 (64) 100 04/07/20 01:30 80 16 94/46 (62) 100 04/07/20 01:15 80 18 93/43 (60) 99 04/07/20 01:11 96/47 04/07/20 01:00 93/43 04/07/20 01:00 93/43 04/07/20 01:00 81 17 96/47 (63) 100 04/07/20 00:45 82 16 94/47 (63) 100 04/07/20 00:30 82 21 93/48 (63) 99 04/07/20 00:15 82 24 97/43 (61) 100 04/07/20 00:00 Mechanical Ventilator Mechanical Ventilator 04/07/20 00:00 100 04/07/20 00:00 99/47 04/07/20 00:00 99/46 04/07/20 00:00 82 24 99/46 (63) 100 04/07/20 00:00 83 04/06/20 23:45 82 24 95/48 (64) 99 04/06/20 23:30 82 24 91/43 (59) 100 04/06/20 23:24 82 24 100 04/06/20 23:15 81 24 96/48 (64) 99 04/06/20 23:00 81 24 93/47 (62) 100 04/06/20 23:00 93/47 04/06/20 23:00 93/47 04/06/20 22:45 81 24 98/49 (65) 100 04/06/20 22:30 81 24 96/47 (63) 100 04/06/20 22:16 83 94/49 04/06/20 22:16 94/49 04/06/20 22:00 94/49 04/06/20 22:00 94/49 04/06/20 22:00 83 24 94/49 (64) 100 04/06/20 21:45 83 24 99/47 (64) 100 04/06/20 21:30 83 24 101/44 (63) 100 04/06/20 21:00 95/48 04/06/20 21:00 95/48 04/06/20 21:00 82 24 93/43 (60) 100 04/06/20 20:45 82 24 100/36 (57) 100 5/21/20 20:30 82 24 102/50 (67) 100 04/06/20 20:23 95/47 04/06/20 20:15 82 24 96/41 (59) 99 04/06/20 20:00 Mechanical Ventilator Mechanical Ventilator 04/06/20 20:00 100.2 83 24 95/47 (63) 99 04/06/20 20:00 100 20 20:00 95/47 20 20:00 95/47 04/06/20 20:00 87 04/06/20 19:45 83 24 92/42 (59) 100 04/06/20 19:44 83 24 100 04/06/20 19:36 88/40 04/06/20 19:33 82 24 78/36 (50) 99 04/06/20 19:30 83 24 88/40 (56) 100 04/06/20 19:00 99/47 04/06/20 19:00 99/47 04/06/20 19:00 83 46 99/47 (64) 100 04/06/20 18:30 83 39 94/46 (62) 99 04/06/20 18:00 95/46 04/06/20 18:00 95/46 04/06/20 18:00 82 24 95/46 (62) 100 04/06/20 17:30 83 35 95/43 (60) 100 04/06/20 17:04 89/46 04/06/20 17:04 89/46 04/06/20 17:00 84 58 89/46 (60) 99 04/06/20 16:33 84 84/41 04/06/20 16:32 84/41 04/06/20 16:30 84 53 91/46 (61) 99 04/06/20 16:30 84/41 20 16:00 100 04/06/20 16:00 Mechanical Ventilator Mechanical Ventilator 04/06/20 16:00 99.8 82 57 62/31 (41) 98 04/06/20 16:00 82 20 16:00 62/31 04/06/20 16:00 62/31 04/06/20 15:39 83 24 100 04/06/20 15:30 83 39 93/32 (52) 99 04/06/20 15:00 83 46 90/48 (62) 99 04/06/20 15:00 90/48 04/06/20 15:00 90/48 04/06/20 14:30 85 54 91/48 (62) 99 04/06/20 14:00 91/45 04/06/20 14:00 91/45 04/06/20 14:00 85 52 91/45 (60) 100 04/06/20 13:56 84 70/35 04/06/20 13:55 70/35 04/06/20 13:50 71/35 04/06/20 13:30 84 46 92/39 (56) 99 04/06/20 13:00 85 45 95/35 (55) 99 04/06/20 13:00 99/51 04/06/20 13:00 99/51 04/06/20 12:30 85 50 92/44 (60) 99 04/06/20 12:04 54/30 04/06/20 12:00 100 04/06/20 12:00 Mechanical Ventilator Mechanical Ventilator 04/06/20 12:00 89/38 04/06/20 12:00 89/38 04/06/20 12:00 100.0 84 39 91/42 (58) 97 04/06/20 12:00 83 04/06/20 11:30 86 40 93/34 (53) 99 04/06/20 11:16 85 24 100 04/06/20 11:00 91/48 04/06/20 11:00 91/48 04/06/20 11:00 85 33 96/48 (64) 99 04/06/20 10:30 86 37 93/46 (62) 99 Intake and Output 04/06/20 04/07/20 19:00 07:00 Intake Total 2782.859 ml 2292.007 ml Output Total 120 ml 60 ml Balance 2662.859 ml 2232.007 ml Free Water 60 ml IV Total 2722.859 ml 2292.007 ml Tube Feeding 0 ml 0 ml Output Urine Total 120 ml 60 ml Laboratory Tests 04/07/20 03:11: White Blood Count 10.9H, Red Blood Count 2.40L, Hemoglobin 8.7L, Hematocrit 25.0L, Mean Corpuscular Volume 104H, Mean Corpuscular Hemoglobin 36.1H, Mean Corpuscular Hemoglobin Concent 34.7, Red Cell Distribution Width 19.7H, Platelet Count 99L, Mean Platelet Volume 9.0, Neutrophils (%) (Auto) , Lymphocytes (%) (Auto) , Monocytes (%) (Auto) , Eosinophils (%) (Auto) , Basophils (%) (Auto) , Sodium Level 119*L, Potassium Level 4.2, Chloride Level 87L, Carbon Dioxide Level 28, Anion Gap 4L, Blood Urea Nitrogen 60H, Creatinine 0.9, Estimat Glomerular Filtration Rate > 60, Glucose Level 146H, Uric Acid 11.5H, Calcium Level 7.5L, Phosphorus Level 5.8H, Magnesium Level 2.4, Total Bilirubin 1.6H, Direct Bilirubin 0.8H, Aspartate Amino Transf (AST/SGOT) 379H, Alanine Aminotransferase (ALT/SGPT) 126H, Alkaline Phosphatase 435H, Troponin I 0.060H, C-Reactive Protein, Quantitative 7.1H, Pro-B-Type Natriuretic Peptide 2105H, Total Protein 5.5L, Albumin 1.8L, Globulin 3.7, Albumin/Globulin Ratio 0.5L 04/07/20 07:25: Arterial Blood pH 7.328L, Arterial Blood Partial Pressure CO2 55.2*H, Arterial Blood Partial Pressure O2 96.4, Arterial Blood HCO3 28.3H, Arterial Blood Oxygen Saturation 95.8, Arterial Blood Base Excess 1.8, Joaquin Test Positive Height (Feet): 5 Height (Inches): 1.00 Weight (Pounds): 235 General Appearance: no apparent distress, other - Unresponsive Cardiovascular: tachycardia Respiratory/Chest: decreased breath sounds Abdomen: distended Objective No change Cristhian Granados MD April 07, 2020 10:26
--- NOTE | 2020-04-07 11:02 | Hematology/Onc Progress Note ---
Assessment/Plan Assessment/Plan Assessment and Recs # Pancytopenia -- multiple etiologies could be related to underlying liver disease, medication-induced, infection versus viral syndrome versus underlying bone marrow cause, in this case, has severe liver disease and cirrhosis, HEP C++ , also cellulitis, COVID19++ --> peripheral smear has been ordered and does not show significant abnormalities and none noted --> Medications have been reviewed --> Continue to monitor for improvement, trend cbc --> Hep panel and HIV are both negative --> US abd ordered to r/o cirrhosis and hepatosplenomegaly ->CIRRHOSIS IS NOTED , LARGE SPLEEN --> reverse isolation if ANC is <2000 --> Give neupogen if ANC <1000 --> Transfuse if hgb <7, with 1 unit prbc --> anemia panel ordered as well-->CW acd --> hgb trend 7-->7.1-->8.4-->8.2 -->8.7-->9.9-->9.2-->9.5-->9.1-->10.1 -->9--> 8.9 --> plt 145k-->152-->162k-->149k-->121k-->171k-->149-->163-->135-->100 --> wbc 3.4-->3.5->3.9->4.4-->11-->10.8 -->15->23-->26-->27-->26.7 -->14.3 --> abx: sameer/rifaximin-->levaquin /vanc-->sameer/vanc # Leukocytosis with Cellulitis of the lower extremities, SEPSIS --> continue abx as needed as per id --> Started on IV antibiotics-->azithro/cefepime-->levaquin-->sameer/vanc --> as per surg recs, wound care --> on steriods at this time, likely contributor --> ON MULTIPLE PRESSORS # Ftt --> remains on mirtazapine --> daily weights # Elevated LFTS --> as per gi --> due to cirrhosis # Respiratory failure --> s/p intubation 03/16 --> prone positioning as needed by pulm # Dvt ppx lovenox sq # Prognosis is VERY POOR The timing of this note does not necessarily reflect the time of the patient was seen. Greatly appreciate consultation. Subjective Endocrine: Denies: no symptoms, excessive sweating, flushing, intolerance to cold, intolerance to heat, increased hunger, increased thirst, increased urine, unexplained weight gain, unexplained weight loss, other Allergies: Coded Allergies: No Known Allergies (Unverified , 02/29/20) All Systems: reviewed and negative except above Subjective 03/02 no events, no bleeding, hgb 7.1, no hemolysis 03/03 s/p blood, hgb improved to 8.4, stool ob negtive, on abx 03/05 asleep, no acute distress, hgb 8.2 03/06 remains comfortable, on abx, plt remains low 03/07 is on nonrebreather, no night sweats, labs are noted 03/08 labs reviewed, being diuresed, seen by cards, psych, labs noted 03/09 lasix adjusted, wbc remains low at 3.9, reviewed meds, smear 03/10 no night sweats, no bleeding, labs noted, smear noted 03/12 labs noted, none completed, have reordered, cellulitis better 03/13 is continuing with chest pain, cards aware, no further studies until covid neg 03/14 labs noted, no bleeding, diuresis as needed, hgb stable 03/15 alseep is cooperative, no bleeding, meds noted 03/16 no bleeding or chills, hgb 10.8, no night sweats, no major events 03/17 now intubated, no bleeding, labs noted, dw rn 03/19 remains intubated, no bleeding, labs noted, on pressors 03/20 prone posiition, seen by gi and renal, nob leeding, hgb 10.1 03/21 sedated, remains agitated, pulling on 2p restraints, no bleeding 03/22 icu, h/h stable, finished plaq/zithro, no acute distress 03/23 in icu, remains restless no bleeding, labs noted, no bleeding 03/24 in icu, poor prognosis, no night sweats, no fc 03/26 on vent, unresponsive, no bleeding, wbc high is on abx and steriods 03/27 remains on vent, ngt, no bleeding, already on abx on steriods 03/28 labs noted, no bleeding, wbc 23k, hgb 9, still with ongoing leukocytosis, ngt feeds 03/29 icu, started on sameer, steroids being tapered, wbc 26.4, no sob 03/30 no major changes, in icu, resp distress, on vent, wbc remains elevated 03/31 picc intact, wbc 26, amonia 104, no sob, continues on steroids 04/02 icu, nonverbal, vent, no distress 04/03 remains comotose is on vent, and pressors, no bleeding, dw rn in icu 04/04 no new changes, no acute distress 04/05 no overnight events, nonverbal, labs reviewed 04/06 no overnight events, icu, vent, no distress 04/07 at this time is on 4 pressors, remains in icu, no bleeding, hgb 8.7, worse Objective Objective Current Medications Medications (Trade) Dose Ordered Sig/Dolores Route PRN Reason Start Time Stop Time Status Last Admin Dose Admin Acetaminophen (Tylenol) 650 mg Q4H PRN NG Temp >100.5 04/01/20 22:00 05/01/20 21:59 04/06/20 08:46 Acetaminophen (Tylenol) 650 mg Q4H PRN ORAL Mild Pain (Pain Scale 1-3) 03/13/20 14:53 04/12/20 14:52 04/01/20 21:26 Allopurinol (allopurinoL) 300 mg DAILY NG 04/04/20 10:32 05/04/20 10:31 04/07/20 08:41 Chlorhexidine Gluconate (Lucretia-Hex 2%) 1 applic DAILY@2000 TOPIC 03/13/20 20:00 06/11/20 19:59 04/06/20 19:36 Dextrose (Dextrose 50%) 25 ml Q30M PRN IV Hypoglycemia 04/03/20 00:00 07/02/20 00:00 Dextrose (Dextrose 50%) 50 ml Q30M PRN IV Hypoglycemia 04/03/20 00:00 07/02/20 00:00 Dopamine HCl/ Dextrose 250 ml @ 0 mls/hr Q24H IV 03/16/20 19:30 06/14/20 19:29 04/07/20 06:29 Fluconazole (Diflucan) 200 mg DAILY NG 03/31/20 11:00 04/11/20 10:59 04/07/20 08:41 Hydralazine HCl (Apresoline) 10 mg Q6H PRN IV For High Blood Pressure 03/24/20 16:45 06/22/20 16:44 Insulin Aspart (NovoLOG) Q6HR SUBQ 04/03/20 00:00 07/02/20 00:00 04/05/20 23:53 Lactulose (Cephulac) 40 gm Q8HR ORAL 04/01/20 14:00 04/30/20 17:59 04/07/20 05:30 Levothyroxine Sodium (Synthroid) 50 mcg QOD IV 04/05/20 09:00 04/17/20 11:59 04/07/20 08:41 Meropenem 1 gm/ Sodium Chloride 55 ml @ 110 mls/hr Q8HR IVPB 03/29/20 14:00 04/11/20 13:59 04/07/20 05:30 Metoclopramide HCl (Reglan) 10 mg EVERY 6 HOURS IVP 04/04/20 12:00 05/04/20 11:59 04/07/20 05:30 Midodrine (Pro-Amatine) 10 mg THREE TIMES A DAY NG 03/27/20 09:00 06/20/20 12:29 04/07/20 08:41 Norepinephrine Bitartrate 16 mg/ Dextrose 566 ml @ 0 mls/hr Q24H IV 04/04/20 23:00 05/04/20 22:59 04/07/20 05:13 Phenylephrine HCl 100 mg/Dextrose 250 ml @ 0 mls/hr Q24H IV 04/06/20 16:00 05/06/20 15:59 04/07/20 05:30 Vancomycin HCl (Vanco rx to dose) 1 ea DAILY PRN MISC Per rx protocol 04/02/20 11:00 05/02/20 10:59 Vancomycin HCl 500 mg/Sodium Chloride 110 ml @ 110 mls/hr Q12HR@0600,1800 IVPB 04/02/20 18:00 04/11/20 17:59 04/07/20 05:30 Vasopressin 100 units/Sodium Chloride 100 ml @ 0 mls/hr Q24H PRN IV For hypotension 03/16/20 11:00 04/15/20 10:59 04/06/20 08:45 Last 24 Hour Vital Signs Date Time Temp Pulse Resp B/P (MAP) Pulse Ox O2 Delivery O2 Flow Rate FiO2 04/07/20 10:00 77 43 91/38 (55) 97 04/07/20 09:30 76 51 89/38 (55) 97 04/07/20 09:00 77 51 90/46 (61) 100 04/07/20 08:30 76 41 90/48 (62) 100 04/07/20 08:00 Mechanical Ventilator Mechanical Ventilator 04/07/20 08:00 76 42 91/44 (60) 99 04/07/20 08:00 100 04/07/20 07:10 78 24 100 04/07/20 07:00 78 24 89/48 (62) 99 04/07/20 07:00 89/48 04/07/20 07:00 89/48 04/07/20 06:29 94/41 04/07/20 06:28 94/41 04/07/20 06:00 94/47 04/07/20 06:00 94/47 04/07/20 06:00 77 24 91/46 (61) 100 04/07/20 05:30 77 24 94/46 (62) 100 04/07/20 05:30 77 91/44 04/07/20 05:15 77 24 91/41 (58) 100 04/07/20 05:13 91/44 04/07/20 05:00 77 24 93/48 (63) 100 04/07/20 05:00 91/44 04/07/20 05:00 91/44 04/07/20 04:45 77 24 91/44 (60) 100 04/07/20 04:30 77 24 94/45 (61) 100 04/07/20 04:15 77 24 94/36 (55) 100 04/07/20 04:11 90/44 04/07/20 04:00 99.4 78 24 90/44 (59) 98 04/07/20 04:00 100 04/07/20 04:00 77 04/07/20 04:00 96/42 04/07/20 04:00 96/42 04/07/20 04:00 Mechanical Ventilator Mechanical Ventilator 04/07/20 03:45 78 24 96/50 (65) 98 04/07/20 03:30 79 24 95/46 (62) 98 04/07/20 03:15 80 24 92/46 (61) 95 04/07/20 03:12 81 24 100 04/07/20 03:00 80 24 97/50 (66) 95 04/07/20 03:00 93/45 04/07/20 03:00 93/45 04/07/20 02:45 80 50 97/47 (64) 94 04/07/20 02:36 82 57 132/38 (69) 92 04/07/20 02:30 79 18 76/39 (51) 97 04/07/20 02:15 81 15 98/46 (63) 99 04/07/20 02:00 111/36 04/07/20 02:00 111/36 04/07/20 02:00 81 20 95/47 (63) 99 04/07/20 01:45 81 16 93/50 (64) 100 04/07/20 01:30 80 16 94/46 (62) 100 04/07/20 01:15 80 18 93/43 (60) 99 04/07/20 01:11 96/47 04/07/20 01:00 93/43 04/07/20 01:00 93/43 04/07/20 01:00 81 17 96/47 (63) 100 04/07/20 00:45 82 16 94/47 (63) 100 04/07/20 00:30 82 21 93/48 (63) 99 04/07/20 00:15 82 24 97/43 (61) 100 04/07/20 00:00 Mechanical Ventilator Mechanical Ventilator 04/07/20 00:00 100 04/07/20 00:00 99/47 04/07/20 00:00 99/46 04/07/20 00:00 82 24 99/46 (63) 100 04/07/20 00:00 83 04/06/20 23:45 82 24 95/48 (64) 99 04/06/20 23:30 82 24 91/43 (59) 100 04/06/20 23:24 82 24 100 04/06/20 23:15 81 24 96/48 (64) 99 5/21/20 23:00 81 24 93/47 (62) 100 20 23:00 93/47 20 23:00 93/47 20 22:45 81 24 98/49 (65) 100 20 22:30 81 24 96/47 (63) 100 20 22:16 83 94/49 2120 22:16 94/49 20 22:00 94/49 20 22:00 94/49 20 22:00 83 24 94/49 (64) 100 04/06/20 21:45 83 24 99/47 (64) 100 04/06/20 21:30 83 24 101/44 (63) 100 04/06/20 21:00 95/48 04/06/20 21:00 95/48 04/06/20 21:00 82 24 93/43 (60) 100 04/06/20 20:45 82 24 100/36 (57) 100 04/06/20 20:30 82 24 102/50 (67) 100 20 20:23 95/47 04/06/20 20:15 82 24 96/41 (59) 99 04/06/20 20:00 Mechanical Ventilator Mechanical Ventilator 04/06/20 20:00 100.2 83 24 95/47 (63) 99 20 20:00 100 04/06/20 20:00 95/47 2120 20:00 95/47 20 20:00 87 04/06/20 19:45 83 24 92/42 (59) 100 04/06/20 19:44 83 24 100 20 19:36 88/40 20 19:33 82 24 78/36 (50) 99 20 19:30 83 24 88/40 (56) 100 20 19:00 99/47 2120 19:00 99/47 20 19:00 83 46 99/47 (64) 100 20 18:30 83 39 94/46 (62) 99 20 18:00 95/46 2120 18:00 95/46 5/21/20 18:00 82 24 95/46 (62) 100 04/06/20 17:30 83 35 95/43 (60) 100 04/06/20 17:04 89/46 04/06/20 17:04 89/46 04/06/20 17:00 84 58 89/46 (60) 99 04/06/20 16:33 84 84/41 04/06/20 16:32 84/41 04/06/20 16:30 84 53 91/46 (61) 99 04/06/20 16:30 84/41 04/06/20 16:00 100 04/06/20 16:00 Mechanical Ventilator Mechanical Ventilator 04/06/20 16:00 99.8 82 57 62/31 (41) 98 04/06/20 16:00 82 04/06/20 16:00 62/31 04/06/20 16:00 62/31 04/06/20 15:39 83 24 100 04/06/20 15:30 83 39 93/32 (52) 99 04/06/20 15:00 83 46 90/48 (62) 99 04/06/20 15:00 90/48 04/06/20 15:00 90/48 04/06/20 14:30 85 54 91/48 (62) 99 04/06/20 14:00 91/45 04/06/20 14:00 91/45 04/06/20 14:00 85 52 91/45 (60) 100 04/06/20 13:56 84 70/35 04/06/20 13:55 70/35 04/06/20 13:50 71/35 04/06/20 13:30 84 46 92/39 (56) 99 04/06/20 13:00 85 45 95/35 (55) 99 04/06/20 13:00 99/51 04/06/20 13:00 99/51 04/06/20 12:30 85 50 92/44 (60) 99 04/06/20 12:04 54/30 04/06/20 12:00 100 04/06/20 12:00 Mechanical Ventilator Mechanical Ventilator 04/06/20 12:00 89/38 04/06/20 12:00 89/38 04/06/20 12:00 100.0 84 39 91/42 (58) 97 04/06/20 12:00 83 04/06/20 11:30 86 40 93/34 (53) 99 04/06/20 11:16 85 24 100 04/06/20 11:00 91/48 04/06/20 11:00 91/48 04/06/20 11:00 85 33 96/48 (64) 99 04/06/20 10:30 86 37 93/46 (62) 99 04/06/20 10:00 87 48 96/50 (65) 99 04/06/20 10:00 96/50 04/06/20 10:00 96/50 04/06/20 09:51 87 96/45 04/06/20 09:30 89 40 102/45 (64) 94 04/06/20 09:16 100.6 04/06/20 09:09 103/51 04/06/20 09:00 99/62 04/06/20 09:00 99/62 04/06/20 09:00 90 29 99/62 (74) 88 04/06/20 08:30 90 40 89/46 (60) 86 04/06/20 08:00 100.8 90 50 102/49 (66) 89 04/06/20 08:00 100 04/06/20 08:00 90 04/06/20 08:00 102/49 04/06/20 08:00 102/49 04/06/20 08:00 Mechanical Ventilator Mechanical Ventilator 04/06/20 07:18 91 24 100 04/06/20 07:00 90 42 103/51 (68) 88 04/06/20 07:00 103/51 04/06/20 07:00 103/51 04/06/20 06:00 101/47 04/06/20 06:00 101/47 04/06/20 06:00 90 37 101/47 (65) 90 04/06/20 05:58 94/48 04/06/20 05:30 91 39 106/50 (68) 89 04/06/20 05:06 91 100/46 04/06/20 05:00 91 44 100/46 (64) 91 04/06/20 05:00 105/48 04/06/20 05:00 105/48 04/06/20 04:30 91 37 104/44 (64) 91 04/06/20 04:00 100 04/06/20 04:00 91 04/06/20 04:00 Mechanical Ventilator Mechanical Ventilator 04/06/20 04:00 102/48 04/06/20 04:00 102/48 04/06/20 04:00 100.5 91 35 102/48 (66) 92 04/06/20 03:30 91 38 103/48 (66) 91 04/06/20 03:15 91 41 103/43 (63) 92 04/06/20 03:14 97/40 04/06/20 03:02 91 25 100 04/06/20 03:00 90 33 97/40 (59) 91 04/06/20 03:00 97/40 04/06/20 03:00 97/40 04/06/20 03:00 97/40 04/06/20 02:30 91 38 102/41 (61) 93 04/06/20 02:00 91 34 112/40 (64) 93 04/06/20 02:00 112/40 04/06/20 02:00 112/40 04/06/20 01:45 90 32 93/44 (60) 92 04/06/20 01:30 90 31 96/45 (62) 92 04/06/20 01:27 90 82/42 04/06/20 01:00 90 32 91/44 (60) 92 04/06/20 01:00 82/42 04/06/20 01:00 91/44 04/06/20 01:00 91/44 04/06/20 01:00 82/42 04/06/20 00:37 65/33 04/06/20 00:30 90 27 99/49 (66) 90 04/06/20 00:00 100 04/06/20 00:00 96/47 04/06/20 00:00 96/47 04/06/20 00:00 91 04/06/20 00:00 Mechanical Ventilator Mechanical Ventilator 04/06/20 00:00 100.1 91 36 96/47 (63) 74 20 23:00 103/43 04/05/20 23:00 103/43 04/05/20 23:00 103/43 04/05/20 23:00 91 31 103/43 (63) 73 04/05/20 22:46 92 24 100 5/20/20 22:00 92 33 100/49 (66) 79 5/20/20 22:00 109/50 5/20/20 22:00 109/50 5/20/20 21:30 90 35 106/48 (67) 79 5/20/20 21:00 90 30 100/46 (64) 80 5/20/20 21:00 97/42 5/20/20 21:00 97/42 5/20/20 20:30 90 39 99/45 (63) 81 5/20/20 20:00 100 5/20/20 20:00 Mechanical Ventilator Mechanical Ventilator 520/20 20:00 99.9 90 41 102/46 (64) 83 5/20/20 20:00 93/46 5/20/20 20:00 93/46 5/20/20 20:00 90 5/20/20 19:30 90 36 98/43 (61) 83 5/20/20 19:07 90 24 100 5/20/20 19:02 95/32 5/20/20 19:00 90 39 100/45 (63) 84 5/20/20 18:30 89 32 80/30 (47) 84 5/20/20 18:21 105/54 5/20/20 18:20 80/30 5/20/20 18:00 90 54 95/46 (62) 91 5/20/20 18:00 82/29 5/20/20 18:00 82/29 5/20/20 17:37 90 24 100 5/20/20 17:30 90 47 100/53 (69) 83 5/20/20 17:00 91 50 107/51 (69) 86 5/20/20 17:00 103/51 5/20/20 17:00 103/51 5/20/20 16:30 90 55 104/52 (69) 84 5/20/20 16:00 99.5 90 50 100/48 (65) 83 5/20/20 16:00 100 5/20/20 16:00 103/49 5/20/20 16:00 103/49 5/20/20 16:00 Mechanical Ventilator Mechanical Ventilator 20/20 15:46 90 5/20/20 15:30 90 41 105/54 (71) 83 5/20/20 15:07 104/49 5/20/20 15:01 88 24 100 5/20/20 15:00 126/41 04/05/20 15:00 126/41 04/05/20 15:00 88 41 98/43 (61) 88 04/05/20 14:30 89 43 104/49 (67) 86 04/05/20 14:00 99/47 04/05/20 14:00 99/47 04/05/20 14:00 90 38 97/48 (64) 86 04/05/20 13:28 47 40 100/48 (65) 88 04/05/20 13:00 100/48 04/05/20 13:00 100/48 04/05/20 13:00 89 40 95/44 (61) 88 04/05/20 12:30 88 33 94/48 (63) 91 04/05/20 12:00 80 04/05/20 12:00 89 41 100/48 (65) 91 04/05/20 12:00 Mechanical Ventilator Mechanical Ventilator 04/05/20 12:00 99.4 89 41 100/48 (65) 91 04/05/20 12:00 55/26 04/05/20 12:00 55/26 04/05/20 12:00 100 04/05/20 11:35 88 24 100 04/05/20 11:30 86 40 102/42 (62) 91 04/05/20 11:23 103/54 04/05/20 11:22 102/46 Intake and Output 04/06/20 04/07/20 19:00 07:00 Intake Total 2782.859 ml 2292.007 ml Output Total 120 ml 60 ml Balance 2662.859 ml 2232.007 ml Free Water 60 ml IV Total 2722.859 ml 2292.007 ml Tube Feeding 0 ml 0 ml Output Urine Total 120 ml 60 ml Labs Test 04/05/20 03:15 04/06/20 03:20 04/07/20 03:11 04/07/20 07:25 White Blood Count 12.3 K/UL (4.8-10.8) 13.8 K/UL (4.8-10.8) 10.9 K/UL (4.8-10.8) Red Blood Count 2.48 M/UL (4.20-5.40) 2.39 M/UL (4.20-5.40) 2.40 M/UL (4.20-5.40) Hemoglobin 9.1 G/DL (12.0-16.0) 8.7 G/DL (12.0-16.0) 8.7 G/DL (12.0-16.0) Hematocrit 26.3 % (37.0-47.0) 25.0 % (37.0-47.0) 25.0 % (37.0-47.0) Mean Corpuscular Volume 106 FL (80-99) 105 FL (80-99) 104 FL (80-99) Mean Corpuscular Hemoglobin 36.5 PG (27.0-31.0) 36.5 PG (27.0-31.0) 36.1 PG (27.0-31.0) Mean Corpuscular Hemoglobin Concent 34.5 G/DL (32.0-36.0) 34.9 G/DL (32.0-36.0) 34.7 G/DL (32.0-36.0) Red Cell Distribution Width 21.7 % (11.6-14.8) 21.2 % (11.6-14.8) 19.7 % (11.6-14.8) Platelet Count 109 K/UL (150-450) 106 K/UL (150-450) 99 K/UL (150-450) Mean Platelet Volume 8.6 FL (6.5-10.1) 9.3 FL (6.5-10.1) 9.0 FL (6.5-10.1) Neutrophils (%) (Auto) % (45.0-75.0) 82.7 % (45.0-75.0) % (45.0-75.0) Lymphocytes (%) (Auto) % (20.0-45.0) 8.8 % (20.0-45.0) % (20.0-45.0) Monocytes (%) (Auto) % (1.0-10.0) 2.4 % (1.0-10.0) % (1.0-10.0) Eosinophils (%) (Auto) % (0.0-3.0) 5.7 % (0.0-3.0) % (0.0-3.0) Basophils (%) (Auto) % (0.0-2.0) 0.4 % (0.0-2.0) % (0.0-2.0) Sodium Level 128 MMOL/L (136-145) 126 MMOL/L (136-145) 119 MMOL/L (136-145) Potassium Level 3.8 MMOL/L (3.5-5.1) 3.8 MMOL/L (3.5-5.1) 4.2 MMOL/L (3.5-5.1) Chloride Level 91 MMOL/L (98-107) 91 MMOL/L (98-107) 87 MMOL/L (98-107) Carbon Dioxide Level 33 MMOL/L (21-32) 32 MMOL/L (21-32) 28 MMOL/L (21-32) Anion Gap 4 mmol/L (5-15) 3 mmol/L (5-15) 4 mmol/L (5-15) Blood Urea Nitrogen 54 mg/dL (7-18) 56 mg/dL (7-18) 60 mg/dL (7-18) Creatinine 0.8 MG/DL (0.55-1.30) 0.7 MG/DL (0.55-1.30) 0.9 MG/DL (0.55-1.30) Estimat Glomerular Filtration Rate > 60 mL/min (>60) > 60 mL/min (>60) > 60 mL/min (>60) Glucose Level 146 MG/DL (74-106) 143 MG/DL (74-106) 146 MG/DL (74-106) Calcium Level 7.7 MG/DL (8.5-10.1) 7.3 MG/DL (8.5-10.1) 7.5 MG/DL (8.5-10.1) Total Bilirubin 1.8 MG/DL (0.2-1.0) 1.7 MG/DL (0.2-1.0) 1.6 MG/DL (0.2-1.0) Direct Bilirubin 0.9 MG/DL (0.0-0.3) 0.9 MG/DL (0.0-0.3) 0.8 MG/DL (0.0-0.3) Aspartate Amino Transf (AST/SGOT) 598 U/L (15-37) 460 U/L (15-37) 379 U/L (15-37) Alanine Aminotransferase (ALT/SGPT) 212 U/L (12-78) 158 U/L (12-78) 126 U/L (12-78) Alkaline Phosphatase 510 U/L (46-116) 471 U/L (46-116) 435 U/L (46-116) Ammonia 117 umol/L (11-32) Total Protein 5.9 G/DL (6.4-8.2) 5.5 G/DL (6.4-8.2) 5.5 G/DL (6.4-8.2) Albumin 2.0 G/DL (3.4-5.0) 1.9 G/DL (3.4-5.0) 1.8 G/DL (3.4-5.0) Globulin 3.9 g/dL 3.6 g/dL 3.7 g/dL Albumin/Globulin Ratio 0.5 (1.0-2.7) 0.5 (1.0-2.7) 0.5 (1.0-2.7) Uric Acid 11.5 MG/DL (2.6-7.2) 11.5 MG/DL (2.6-7.2) Phosphorus Level 5.3 MG/DL (2.5-4.9) 5.8 MG/DL (2.5-4.9) Magnesium Level 2.3 MG/DL (1.8-2.4) 2.4 MG/DL (1.8-2.4) C-Reactive Protein, Quantitative 5.4 mg/dL (0.00-0.90) 7.1 mg/dL (0.00-0.90) Pro-B-Type Natriuretic Peptide 2187 pg/mL (0-125) 2105 pg/mL (0-125) Troponin I 0.060 ng/mL (0.000-0.056) Arterial Blood pH 7.328 (7.350-7.450) Arterial Blood Partial Pressure CO2 55.2 mmHg (35.0-45.0) Arterial Blood Partial Pressure O2 96.4 mmHg (75.0-100.0) Arterial Blood HCO3 28.3 mmol/L (22.0-26.0) Arterial Blood Oxygen Saturation 95.8 % (95-100) Arterial Blood Base Excess 1.8 (-2-2) Joaquin Test Positive Height (Feet): 5 Height (Inches): 1.00 Weight (Pounds): 235 Objective Physical Exam: Vitals: reviewed General: NAD HEENT: nc, at++ngt Neck: supple Chest: crackles b/l, mech breath sounds ++intubated Cardiovascular: RRR, no s3, s4 EXT ++ Significant edema and erythema bilateral lower extremity, patient also has blistering on both feet, picc+ Neurologic: sedated Skin: other - As above Brett Mcclain MD April 07, 2020 11:02
--- NOTE | 2020-04-07 11:44 | Infectious Diseases Prog Note ---
Assessment/Plan Assessment/Plan IMPRESSION: 1. Bilateral leg cellulitis treated 2. Anemia. 3. Hypoxemic respiratory failure 4. Thrombocytopenia. 5. Homeless 6. Morbid obesity. 7. Cirrhosis 8. COVID19 pneumonia Positive03/07-03/12, 03/24, 03/27. 04/02 9. Hepatitis C 10.septic shock 11. Pneumonia with Pseudomonas 12. DM & hyperglycemia 13. Diarrhea, C. difficile negative 14. Leukocytosis improving 15. Severe encephalopathy RECOMMENDATION: Will f/u COVID19 test Finished Plaquenil ,Actemra, steroids & Ivermectin continue Meropenem, Vancomycin & Fluconazole Poor prognosis Ethic committee - family meeting pending Case was D/W RN Subjective ROS Limited/Unobtainable: Yes Constitutional: Reports: fever, other - low grade Cardiovascular: Reports: other - on maximal dose of pressors Allergies: Coded Allergies: No Known Allergies (Unverified , 02/29/20) Objective Vital Signs Last 24 Hour Vital Signs Date Time Temp Pulse Resp B/P (MAP) Pulse Ox O2 Delivery O2 Flow Rate FiO2 04/07/20 11:31 91/46 04/07/20 11:30 76 45 87/38 (54) 98 04/07/20 11:00 75 49 89/44 (59) 100 04/07/20 10:34 75 24 100 04/07/20 10:30 76 46 90/46 (61) 99 04/07/20 10:00 77 43 91/38 (55) 97 04/07/20 09:30 76 51 89/38 (55) 97 04/07/20 09:00 77 51 90/46 (61) 100 04/07/20 08:30 76 41 90/48 (62) 100 04/07/20 08:00 98.3 04/07/20 08:00 Mechanical Ventilator Mechanical Ventilator 04/07/20 08:00 76 42 91/44 (60) 99 04/07/20 08:00 100 04/07/20 07:10 78 24 100 04/07/20 07:00 78 24 89/48 (62) 99 04/07/20 07:00 89/48 04/07/20 07:00 89/48 04/07/20 06:29 94/41 04/07/20 06:28 94/41 04/07/20 06:00 94/47 04/07/20 06:00 94/47 04/07/20 06:00 77 24 91/46 (61) 100 04/07/20 05:30 77 24 94/46 (62) 100 04/07/20 05:30 77 91/44 04/07/20 05:15 77 24 91/41 (58) 100 04/07/20 05:13 91/44 04/07/20 05:00 77 24 93/48 (63) 100 04/07/20 05:00 91/44 04/07/20 05:00 91/44 04/07/20 04:45 77 24 91/44 (60) 100 04/07/20 04:30 77 24 94/45 (61) 100 04/07/20 04:15 77 24 94/36 (55) 100 04/07/20 04:11 90/44 04/07/20 04:00 99.4 78 24 90/44 (59) 98 04/07/20 04:00 100 04/07/20 04:00 77 04/07/20 04:00 96/42 04/07/20 04:00 96/42 04/07/20 04:00 Mechanical Ventilator Mechanical Ventilator 04/07/20 03:45 78 24 96/50 (65) 98 04/07/20 03:30 79 24 95/46 (62) 98 04/07/20 03:15 80 24 92/46 (61) 95 04/07/20 03:12 81 24 100 04/07/20 03:00 80 24 97/50 (66) 95 04/07/20 03:00 93/45 04/07/20 03:00 93/45 04/07/20 02:45 80 50 97/47 (64) 94 04/07/20 02:36 82 57 132/38 (69) 92 04/07/20 02:30 79 18 76/39 (51) 97 04/07/20 02:15 81 15 98/46 (63) 99 04/07/20 02:00 111/36 04/07/20 02:00 111/36 04/07/20 02:00 81 20 95/47 (63) 99 04/07/20 01:45 81 16 93/50 (64) 100 04/07/20 01:30 80 16 94/46 (62) 100 04/07/20 01:15 80 18 93/43 (60) 99 04/07/20 01:11 96/47 04/07/20 01:00 93/43 04/07/20 01:00 93/43 04/07/20 01:00 81 17 96/47 (63) 100 04/07/20 00:45 82 16 94/47 (63) 100 04/07/20 00:30 82 21 93/48 (63) 99 04/07/20 00:15 82 24 97/43 (61) 100 04/07/20 00:00 Mechanical Ventilator Mechanical Ventilator 04/07/20 00:00 100 04/07/20 00:00 99/47 04/07/20 00:00 99/46 04/07/20 00:00 82 24 99/46 (63) 100 04/07/20 00:00 83 04/06/20 23:45 82 24 95/48 (64) 99 04/06/20 23:30 82 24 91/43 (59) 100 04/06/20 23:24 82 24 100 04/06/20 23:15 81 24 96/48 (64) 99 04/06/20 23:00 81 24 93/47 (62) 100 04/06/20 23:00 93/47 04/06/20 23:00 93/47 04/06/20 22:45 81 24 98/49 (65) 100 04/06/20 22:30 81 24 96/47 (63) 100 04/06/20 22:16 83 94/49 04/06/20 22:16 94/49 04/06/20 22:00 94/49 04/06/20 22:00 94/49 04/06/20 22:00 83 24 94/49 (64) 100 04/06/20 21:45 83 24 99/47 (64) 100 04/06/20 21:30 83 24 101/44 (63) 100 04/06/20 21:00 95/48 04/06/20 21:00 95/48 04/06/20 21:00 82 24 93/43 (60) 100 04/06/20 20:45 82 24 100/36 (57) 100 04/06/20 20:30 82 24 102/50 (67) 100 04/06/20 20:23 95/47 04/06/20 20:15 82 24 96/41 (59) 99 20 20:00 Mechanical Ventilator Mechanical Ventilator 04/06/20 20:00 100.2 83 24 95/47 (63) 99 04/06/20 20:00 100 20 20:00 95/47 20 20:00 95/47 04/06/20 20:00 87 04/06/20 19:45 83 24 92/42 (59) 100 04/06/20 19:44 83 24 100 04/06/20 19:36 88/40 04/06/20 19:33 82 24 78/36 (50) 99 04/06/20 19:30 83 24 88/40 (56) 100 04/06/20 19:00 99/47 04/06/20 19:00 99/47 04/06/20 19:00 83 46 99/47 (64) 100 04/06/20 18:30 83 39 94/46 (62) 99 04/06/20 18:00 95/46 04/06/20 18:00 95/46 04/06/20 18:00 82 24 95/46 (62) 100 04/06/20 17:30 83 35 95/43 (60) 100 04/06/20 17:04 89/46 04/06/20 17:04 89/46 04/06/20 17:00 84 58 89/46 (60) 99 04/06/20 16:33 84 84/41 04/06/20 16:32 84/41 04/06/20 16:30 84 53 91/46 (61) 99 04/06/20 16:30 84/41 20 16:00 100 04/06/20 16:00 Mechanical Ventilator Mechanical Ventilator 04/06/20 16:00 99.8 82 57 62/31 (41) 98 04/06/20 16:00 82 20 16:00 62/31 04/06/20 16:00 62/31 04/06/20 15:39 83 24 100 04/06/20 15:30 83 39 93/32 (52) 99 04/06/20 15:00 83 46 90/48 (62) 99 04/06/20 15:00 90/48 5/21/20 15:00 90/48 04/06/20 14:30 85 54 91/48 (62) 99 04/06/20 14:00 91/45 04/06/20 14:00 91/45 04/06/20 14:00 85 52 91/45 (60) 100 04/06/20 13:56 84 70/35 04/06/20 13:55 70/35 04/06/20 13:50 71/35 04/06/20 13:30 84 46 92/39 (56) 99 04/06/20 13:00 85 45 95/35 (55) 99 04/06/20 13:00 99/51 04/06/20 13:00 99/51 04/06/20 12:30 85 50 92/44 (60) 99 04/06/20 12:04 54/30 04/06/20 12:00 100 04/06/20 12:00 Mechanical Ventilator Mechanical Ventilator 04/06/20 12:00 89/38 04/06/20 12:00 89/38 04/06/20 12:00 100.0 84 39 91/42 (58) 97 04/06/20 12:00 83 Height (Feet): 5 Height (Inches): 1.00 Weight (Pounds): 235 HEENT: other - orally intubated Respiratory/Chest: other - on ventilator Cardiovascular: normal rate, other - PICC line Abdomen: other - NG tube Extremities: other - edema Neurologic/Psychiatric: other - no movement today Laboratory Tests Test 04/07/20 03:11 04/07/20 07:25 White Blood Count 10.9 K/UL (4.8-10.8) H Red Blood Count 2.40 M/UL (4.20-5.40) L Hemoglobin 8.7 G/DL (12.0-16.0) L Hematocrit 25.0 % (37.0-47.0) L Mean Corpuscular Volume 104 FL (80-99) H Mean Corpuscular Hemoglobin 36.1 PG (27.0-31.0) H Mean Corpuscular Hemoglobin Concent 34.7 G/DL (32.0-36.0) Red Cell Distribution Width 19.7 % (11.6-14.8) H Platelet Count 99 K/UL (150-450) L Mean Platelet Volume 9.0 FL (6.5-10.1) Neutrophils (%) (Auto) % (45.0-75.0) Lymphocytes (%) (Auto) % (20.0-45.0) Monocytes (%) (Auto) % (1.0-10.0) Eosinophils (%) (Auto) % (0.0-3.0) Basophils (%) (Auto) % (0.0-2.0) Sodium Level 119 MMOL/L (136-145) *L Potassium Level 4.2 MMOL/L (3.5-5.1) Chloride Level 87 MMOL/L (98-107) L Carbon Dioxide Level 28 MMOL/L (21-32) Anion Gap 4 mmol/L (5-15) L Blood Urea Nitrogen 60 mg/dL (7-18) H Creatinine 0.9 MG/DL (0.55-1.30) Estimat Glomerular Filtration Rate > 60 mL/min (>60) Glucose Level 146 MG/DL (74-106) H Uric Acid 11.5 MG/DL (2.6-7.2) H Calcium Level 7.5 MG/DL (8.5-10.1) L Phosphorus Level 5.8 MG/DL (2.5-4.9) H Magnesium Level 2.4 MG/DL (1.8-2.4) Total Bilirubin 1.6 MG/DL (0.2-1.0) H Direct Bilirubin 0.8 MG/DL (0.0-0.3) H Aspartate Amino Transf (AST/SGOT) 379 U/L (15-37) H Alanine Aminotransferase (ALT/SGPT) 126 U/L (12-78) H Alkaline Phosphatase 435 U/L (46-116) H Troponin I 0.060 ng/mL (0.000-0.056) C-Reactive Protein, Quantitative 7.1 mg/dL (0.00-0.90) H Pro-B-Type Natriuretic Peptide 2105 pg/mL (0-125) H Total Protein 5.5 G/DL (6.4-8.2) L Albumin 1.8 G/DL (3.4-5.0) L Globulin 3.7 g/dL Albumin/Globulin Ratio 0.5 (1.0-2.7) L Arterial Blood pH 7.328 (7.350-7.450) Arterial Blood Partial Pressure CO2 55.2 mmHg (35.0-45.0) *H Arterial Blood Partial Pressure O2 96.4 mmHg (75.0-100.0) Arterial Blood HCO3 28.3 mmol/L (22.0-26.0) H Arterial Blood Oxygen Saturation 95.8 % (95-100) Arterial Blood Base Excess 1.8 (-2-2) Joaquin Test Positive Current Medications Medications (Trade) Dose Ordered Sig/Dolores Route PRN Reason Start Time Stop Time Status Last Admin Dose Admin Acetaminophen (Tylenol) 650 mg Q4H PRN NG Temp >100.5 04/01/20 22:00 05/01/20 21:59 04/06/20 08:46 Acetaminophen (Tylenol) 650 mg Q4H PRN ORAL Mild Pain (Pain Scale 1-3) 03/13/20 14:53 04/12/20 14:52 04/01/20 21:26 Allopurinol (allopurinoL) 300 mg DAILY NG 04/04/20 10:32 05/04/20 10:31 04/07/20 08:41 Chlorhexidine Gluconate (Lucretia-Hex 2%) 1 applic DAILY@2000 TOPIC 03/13/20 20:00 06/11/20 19:59 04/06/20 19:36 Dextrose (Dextrose 50%) 25 ml Q30M PRN IV Hypoglycemia 04/03/20 00:00 07/02/20 00:00 Dextrose (Dextrose 50%) 50 ml Q30M PRN IV Hypoglycemia 04/03/20 00:00 07/02/20 00:00 Dopamine HCl/ Dextrose 250 ml @ 0 mls/hr Q24H IV 03/16/20 19:30 06/14/20 19:29 04/07/20 11:31 Fluconazole (Diflucan) 200 mg DAILY NG 03/31/20 11:00 04/11/20 10:59 04/07/20 08:41 Hydralazine HCl (Apresoline) 10 mg Q6H PRN IV For High Blood Pressure 03/24/20 16:45 06/22/20 16:44 Insulin Aspart (NovoLOG) Q6HR SUBQ 04/03/20 00:00 07/02/20 00:00 04/05/20 23:53 Lactulose (Cephulac) 40 gm Q8HR ORAL 04/01/20 14:00 04/30/20 17:59 04/07/20 05:30 Levothyroxine Sodium (Synthroid) 50 mcg QOD IV 04/05/20 09:00 04/17/20 11:59 04/07/20 08:41 Meropenem 1 gm/ Sodium Chloride 55 ml @ 110 mls/hr Q8HR IVPB 03/29/20 14:00 04/11/20 13:59 04/07/20 05:30 Metoclopramide HCl (Reglan) 10 mg EVERY 6 HOURS IVP 04/04/20 12:00 05/04/20 11:59 04/07/20 05:30 Midodrine (Pro-Amatine) 10 mg THREE TIMES A DAY NG 03/27/20 09:00 06/20/20 12:29 04/07/20 08:41 Norepinephrine Bitartrate 16 mg/ Dextrose 566 ml @ 0 mls/hr Q24H IV 04/04/20 23:00 05/04/20 22:59 04/07/20 05:13 Phenylephrine HCl 100 mg/Dextrose 250 ml @ 0 mls/hr Q24H IV 04/06/20 16:00 05/06/20 15:59 04/07/20 05:30 Vancomycin HCl (Vanco rx to dose) 1 ea DAILY PRN MISC Per rx protocol 04/02/20 11:00 05/02/20 10:59 Vancomycin HCl 500 mg/Sodium Chloride 110 ml @ 110 mls/hr Q12HR@0600,1800 IVPB 04/02/20 18:00 04/11/20 17:59 04/07/20 05:30 Vasopressin 100 units/Sodium Chloride 100 ml @ 0 mls/hr Q24H PRN IV For hypotension 03/16/20 11:00 04/15/20 10:59 04/06/20 08:45 Jonathon Shah MD April 07, 2020 11:44
--- NOTE | 2020-04-07 13:25 | Surgery Progress Note ---
Surgery Progress Note Subjective Symptoms: worse Additional Comments on multiple pressors high vent settings prognosis guarded Objective Last 24 Hour Vital Signs Date Time Temp Pulse Resp B/P (MAP) Pulse Ox O2 Delivery O2 Flow Rate FiO2 04/07/20 13:20 77 95/41 04/07/20 13:20 95/41 04/07/20 12:00 86/43 04/07/20 12:00 86/43 04/07/20 12:00 Mechanical Ventilator Mechanical Ventilator 04/07/20 12:00 100 04/07/20 11:31 91/46 04/07/20 11:30 76 45 87/38 (54) 98 04/07/20 11:00 75 49 89/44 (59) 100 04/07/20 11:00 103/75 04/07/20 11:00 103/75 04/07/20 10:34 75 24 100 04/07/20 10:30 76 46 90/46 (61) 99 04/07/20 10:00 91/50 04/07/20 10:00 91/50 04/07/20 10:00 77 43 91/38 (55) 97 04/07/20 09:30 76 51 89/38 (55) 97 04/07/20 09:00 95/60 04/07/20 09:00 95/60 04/07/20 09:00 77 51 90/46 (61) 100 04/07/20 08:30 76 41 90/48 (62) 100 04/07/20 08:00 98.3 04/07/20 08:00 Mechanical Ventilator Mechanical Ventilator 04/07/20 08:00 76 42 91/44 (60) 99 04/07/20 08:00 96/51 04/07/20 08:00 96/51 04/07/20 08:00 100 04/07/20 07:10 78 24 100 04/07/20 07:00 78 24 89/48 (62) 99 04/07/20 07:00 89/48 04/07/20 07:00 89/48 04/07/20 06:29 94/41 04/07/20 06:28 94/41 04/07/20 06:00 94/47 04/07/20 06:00 94/47 04/07/20 06:00 77 24 91/46 (61) 100 04/07/20 05:30 77 24 94/46 (62) 100 04/07/20 05:30 77 91/44 04/07/20 05:15 77 24 91/41 (58) 100 04/07/20 05:13 91/44 04/07/20 05:00 77 24 93/48 (63) 100 04/07/20 05:00 91/44 04/07/20 05:00 91/44 04/07/20 04:45 77 24 91/44 (60) 100 04/07/20 04:30 77 24 94/45 (61) 100 04/07/20 04:15 77 24 94/36 (55) 100 04/07/20 04:11 90/44 04/07/20 04:00 99.4 78 24 90/44 (59) 98 04/07/20 04:00 100 04/07/20 04:00 77 04/07/20 04:00 96/42 04/07/20 04:00 96/42 04/07/20 04:00 Mechanical Ventilator Mechanical Ventilator 04/07/20 03:45 78 24 96/50 (65) 98 04/07/20 03:30 79 24 95/46 (62) 98 04/07/20 03:15 80 24 92/46 (61) 95 04/07/20 03:12 81 24 100 04/07/20 03:00 80 24 97/50 (66) 95 04/07/20 03:00 93/45 04/07/20 03:00 93/45 04/07/20 02:45 80 50 97/47 (64) 94 04/07/20 02:36 82 57 132/38 (69) 92 04/07/20 02:30 79 18 76/39 (51) 97 04/07/20 02:15 81 15 98/46 (63) 99 04/07/20 02:00 111/36 04/07/20 02:00 111/36 04/07/20 02:00 81 20 95/47 (63) 99 04/07/20 01:45 81 16 93/50 (64) 100 04/07/20 01:30 80 16 94/46 (62) 100 04/07/20 01:15 80 18 93/43 (60) 99 04/07/20 01:11 96/47 04/07/20 01:00 93/43 04/07/20 01:00 93/43 04/07/20 01:00 81 17 96/47 (63) 100 04/07/20 00:45 82 16 94/47 (63) 100 04/07/20 00:30 82 21 93/48 (63) 99 04/07/20 00:15 82 24 97/43 (61) 100 04/07/20 00:00 Mechanical Ventilator Mechanical Ventilator 04/07/20 00:00 100 04/07/20 00:00 99/47 04/07/20 00:00 99/46 04/07/20 00:00 82 24 99/46 (63) 100 04/07/20 00:00 83 04/06/20 23:45 82 24 95/48 (64) 99 04/06/20 23:30 82 24 91/43 (59) 100 04/06/20 23:24 82 24 100 04/06/20 23:15 81 24 96/48 (64) 99 04/06/20 23:00 81 24 93/47 (62) 100 04/06/20 23:00 93/47 04/06/20 23:00 93/47 04/06/20 22:45 81 24 98/49 (65) 100 04/06/20 22:30 81 24 96/47 (63) 100 04/06/20 22:16 83 94/49 04/06/20 22:16 94/49 04/06/20 22:00 94/49 04/06/20 22:00 94/49 04/06/20 22:00 83 24 94/49 (64) 100 04/06/20 21:45 83 24 99/47 (64) 100 04/06/20 21:30 83 24 101/44 (63) 100 04/06/20 21:00 95/48 04/06/20 21:00 95/48 04/06/20 21:00 82 24 93/43 (60) 100 04/06/20 20:45 82 24 100/36 (57) 100 04/06/20 20:30 82 24 102/50 (67) 100 04/06/20 20:23 95/47 04/06/20 20:15 82 24 96/41 (59) 99 04/06/20 20:00 Mechanical Ventilator Mechanical Ventilator 04/06/20 20:00 100.2 83 24 95/47 (63) 99 20 20:00 100 20 20:00 95/47 20 20:00 95/47 04/06/20 20:00 87 04/06/20 19:45 83 24 92/42 (59) 100 04/06/20 19:44 83 24 100 04/06/20 19:36 88/40 04/06/20 19:33 82 24 78/36 (50) 99 04/06/20 19:30 83 24 88/40 (56) 100 04/06/20 19:00 99/47 20 19:00 99/47 04/06/20 19:00 83 46 99/47 (64) 100 04/06/20 18:30 83 39 94/46 (62) 99 04/06/20 18:00 95/46 04/06/20 18:00 95/46 04/06/20 18:00 82 24 95/46 (62) 100 04/06/20 17:30 83 35 95/43 (60) 100 04/06/20 17:04 89/46 04/06/20 17:04 89/46 04/06/20 17:00 84 58 89/46 (60) 99 04/06/20 16:33 84 84/41 04/06/20 16:32 84/41 04/06/20 16:30 84 53 91/46 (61) 99 04/06/20 16:30 84/41 04/06/20 16:00 100 04/06/20 16:00 Mechanical Ventilator Mechanical Ventilator 04/06/20 16:00 99.8 82 57 62/31 (41) 98 04/06/20 16:00 82 20 16:00 62/31 04/06/20 16:00 62/31 04/06/20 15:39 83 24 100 04/06/20 15:30 83 39 93/32 (52) 99 04/06/20 15:00 83 46 90/48 (62) 99 04/06/20 15:00 90/48 20 15:00 90/48 04/06/20 14:30 85 54 91/48 (62) 99 20 14:00 91/45 04/06/20 14:00 91/45 04/06/20 14:00 85 52 91/45 (60) 100 04/06/20 13:56 84 70/35 04/06/20 13:55 70/35 04/06/20 13:50 71/35 04/06/20 13:30 84 46 92/39 (56) 99 I&O Intake and Output 04/06/20 04/07/20 19:00 07:00 Intake Total 2782.859 ml 2292.007 ml Output Total 120 ml 60 ml Balance 2662.859 ml 2232.007 ml Free Water 60 ml IV Total 2722.859 ml 2292.007 ml Tube Feeding 0 ml 0 ml Output Urine Total 120 ml 60 ml Dressing: other Wound: other Drains: other Cardiovascular: RSR Respiratory: decreased breath sounds Abdomen: soft, non-tender, present bowel sounds Extremities: no cyanosis Laboratory Tests Test 04/07/20 03:11 04/07/20 07:25 White Blood Count 10.9 K/UL (4.8-10.8) H Red Blood Count 2.40 M/UL (4.20-5.40) L Hemoglobin 8.7 G/DL (12.0-16.0) L Hematocrit 25.0 % (37.0-47.0) L Mean Corpuscular Volume 104 FL (80-99) H Mean Corpuscular Hemoglobin 36.1 PG (27.0-31.0) H Mean Corpuscular Hemoglobin Concent 34.7 G/DL (32.0-36.0) Red Cell Distribution Width 19.7 % (11.6-14.8) H Platelet Count 99 K/UL (150-450) L Mean Platelet Volume 9.0 FL (6.5-10.1) Neutrophils (%) (Auto) % (45.0-75.0) Lymphocytes (%) (Auto) % (20.0-45.0) Monocytes (%) (Auto) % (1.0-10.0) Eosinophils (%) (Auto) % (0.0-3.0) Basophils (%) (Auto) % (0.0-2.0) Sodium Level 119 MMOL/L (136-145) *L Potassium Level 4.2 MMOL/L (3.5-5.1) Chloride Level 87 MMOL/L (98-107) L Carbon Dioxide Level 28 MMOL/L (21-32) Anion Gap 4 mmol/L (5-15) L Blood Urea Nitrogen 60 mg/dL (7-18) H Creatinine 0.9 MG/DL (0.55-1.30) Estimat Glomerular Filtration Rate > 60 mL/min (>60) Glucose Level 146 MG/DL (74-106) H Uric Acid 11.5 MG/DL (2.6-7.2) H Calcium Level 7.5 MG/DL (8.5-10.1) L Phosphorus Level 5.8 MG/DL (2.5-4.9) H Magnesium Level 2.4 MG/DL (1.8-2.4) Total Bilirubin 1.6 MG/DL (0.2-1.0) H Direct Bilirubin 0.8 MG/DL (0.0-0.3) H Aspartate Amino Transf (AST/SGOT) 379 U/L (15-37) H Alanine Aminotransferase (ALT/SGPT) 126 U/L (12-78) H Alkaline Phosphatase 435 U/L (46-116) H Troponin I 0.060 ng/mL (0.000-0.056) C-Reactive Protein, Quantitative 7.1 mg/dL (0.00-0.90) H Pro-B-Type Natriuretic Peptide 2105 pg/mL (0-125) H Total Protein 5.5 G/DL (6.4-8.2) L Albumin 1.8 G/DL (3.4-5.0) L Globulin 3.7 g/dL Albumin/Globulin Ratio 0.5 (1.0-2.7) L Arterial Blood pH 7.328 (7.350-7.450) Arterial Blood Partial Pressure CO2 55.2 mmHg (35.0-45.0) *H Arterial Blood Partial Pressure O2 96.4 mmHg (75.0-100.0) Arterial Blood HCO3 28.3 mmol/L (22.0-26.0) H Arterial Blood Oxygen Saturation 95.8 % (95-100) Arterial Blood Base Excess 1.8 (-2-2) Joaquin Test Positive Plan Problems: (1) Cellulitis Assessment & Plan: bilateral lower extremity cellulitis / edema chronic venous status changes dermatitis no abscess no purulent drainage ulcerations forming. keep lower extremity elevated while in bed apply skin protectant / moisturizing cream daily okay to shower okay to wrap soft after cream abx as per ID for cellulitis okay for diet duplex ordered trend labs will follow with recs thank you No evidence of deep venous thrombosis involving the visualized veins of the RIGHT lower extremity. refused eval of left COVID ++ cxr noted cont current supportive care improving labs stable improving slowly wean pressors as tolerated Patient is acutely worsened intubated on vent support 2 pressors now worsening labs worsening Prognosis is guarded we will continue with maximal support efforts weaning vent weaning pressors leukocytosis trend lft's Diffuse bilateral interstitial and airspace opacities worsening again vent settings high on pressors worsening vent settings prognosis guarded DAILY ESTIMATED NEEDS: Needs based on obesity, cirrhosis, critical care/ 61kg abw 11-14 (actual body wt 102kg) kcals/kg 2089-4923 total kcals 1.5-2.5kg IBW (48kg IBW) g protein/kg 71-120 g total protein 25-30 mL/kg 4344-9589 total fluid mLs NUTRITION DIAGNOSIS: *Swallowing difficulty R/T respiratory failure as evidenced by pt now orally intubated, on pressor support, Covid-19 positive. *Decreased sodium and fat intake needs R/T cirrhosis dx, morbid obesity as evidenced by elev AST, elev NH3, BMI >50 (INACTIVE) CURRENT TF:NEPRO @33ml/hr-> HELD FOR RESIDUALS ENTERAL NUTRITION RECOMMENDATIONS: Nepro @ 33ml/hr x 24 hrs to provide 792ml, 1425kcal, 64g prot, 575ml free water As medically able rec to resume Nepro w/ goal of 33ml/hr x24 hrs -> flush per , HOB over 30 degrees. -------- -> WITHOUT HEMODYNAMIC STABILITY, rec trophic feeding of Nepro @ 5-10ml/hr ADDITIONAL RECOMMENDATIONS: * Calibrated bedscale wt for accurate CBW Current EMR wt 220#'s vs initial bedscale wt 283lbs * Monitor HEMODYNAMIC stability- on pressors x2 * Monitor lytes- K trend up, phos elev, rec TF change to Nepro at this time * Monitor BGs closely- on magdalena only now * Monitor LFTs: trending up (new TF order will provide 14g less fat) . (2) COVID-19 Assessment & Plan: see above Theron Sotomayor April 07, 2020 13:25
[2020-04-07] MEDS: Vasopressin 100 UNITS in NS 95 ML IV PRN (13:54)
--- NOTE | 2020-04-07 17:18 | General Progress Note ---
Assessment/Plan Problem List: (1) Cellulitis ICD Codes: L03.90 - Cellulitis, unspecified SNOMED: 651008521 Qualifiers: Qualified Codes: L03.119 - Cellulitis of unspecified part of limb Status: not improved Assessment/Plan: respiratory failure eeg shows severe encephalopathy irreversible condition covid pna following duaghter recommendation for end of life hcv critical condition comatose brain encephalopathy Subjective ROS Limited/Unobtainable: Yes Allergies: Coded Allergies: No Known Allergies (Unverified , 02/29/20) Objective Last 24 Hour Vital Signs Date Time Temp Pulse Resp B/P (MAP) Pulse Ox O2 Delivery O2 Flow Rate FiO2 04/07/20 17:03 75 37 84/39 (54) 96 04/07/20 16:30 76 45 83/39 (54) 95 04/07/20 16:24 85/42 04/07/20 16:00 100 04/07/20 16:00 Mechanical Ventilator Mechanical Ventilator 04/07/20 16:00 98.2 76 42 86/41 (56) 95 04/07/20 16:00 75 04/07/20 15:30 76 40 83/41 (55) 96 04/07/20 15:00 76 45 84/38 (53) 96 04/07/20 14:32 76 24 100 04/07/20 14:30 76 42 83/34 (50) 95 04/07/20 14:18 95/41 04/07/20 14:00 76 42 83/34 (50) 95 04/07/20 14:00 95/41 04/07/20 13:30 76 43 85/40 (55) 97 04/07/20 13:20 77 95/41 04/07/20 13:20 95/41 04/07/20 13:00 95/41 04/07/20 13:00 95/41 04/07/20 13:00 75 39 92/37 (55) 98 04/07/20 12:26 76 37 95/42 (59) 97 04/07/20 12:00 98.1 76 47 86/43 (57) 98 04/07/20 12:00 86/43 04/07/20 12:00 86/43 04/07/20 12:00 Mechanical Ventilator Mechanical Ventilator 04/07/20 12:00 75 04/07/20 12:00 100 04/07/20 11:31 91/46 04/07/20 11:30 76 45 87/38 (54) 98 04/07/20 11:00 75 49 89/44 (59) 100 04/07/20 11:00 103/75 04/07/20 11:00 103/75 04/07/20 10:34 75 24 100 04/07/20 10:30 76 46 90/46 (61) 99 04/07/20 10:00 91/50 04/07/20 10:00 91/50 04/07/20 10:00 77 43 91/38 (55) 97 04/07/20 09:30 76 51 89/38 (55) 97 04/07/20 09:00 95/60 04/07/20 09:00 95/60 04/07/20 09:00 77 51 90/46 (61) 100 04/07/20 08:30 76 41 90/48 (62) 100 04/07/20 08:00 98.3 04/07/20 08:00 Mechanical Ventilator Mechanical Ventilator 04/07/20 08:00 76 42 91/44 (60) 99 04/07/20 08:00 96/51 04/07/20 08:00 96/51 04/07/20 08:00 100 04/07/20 08:00 76 04/07/20 07:10 78 24 100 04/07/20 07:00 78 24 89/48 (62) 99 04/07/20 07:00 89/48 04/07/20 07:00 89/48 04/07/20 06:29 94/41 04/07/20 06:28 94/41 04/07/20 06:00 94/47 04/07/20 06:00 94/47 04/07/20 06:00 77 24 91/46 (61) 100 04/07/20 05:30 77 24 94/46 (62) 100 04/07/20 05:30 77 91/44 04/07/20 05:15 77 24 91/41 (58) 100 04/07/20 05:13 91/44 04/07/20 05:00 77 24 93/48 (63) 100 04/07/20 05:00 91/44 04/07/20 05:00 91/44 04/07/20 04:45 77 24 91/44 (60) 100 04/07/20 04:30 77 24 94/45 (61) 100 04/07/20 04:15 77 24 94/36 (55) 100 04/07/20 04:11 90/44 04/07/20 04:00 99.4 78 24 90/44 (59) 98 04/07/20 04:00 100 04/07/20 04:00 77 04/07/20 04:00 96/42 04/07/20 04:00 96/42 04/07/20 04:00 Mechanical Ventilator Mechanical Ventilator 04/07/20 03:45 78 24 96/50 (65) 98 04/07/20 03:30 79 24 95/46 (62) 98 04/07/20 03:15 80 24 92/46 (61) 95 04/07/20 03:12 81 24 100 04/07/20 03:00 80 24 97/50 (66) 95 04/07/20 03:00 93/45 04/07/20 03:00 93/45 04/07/20 02:45 80 50 97/47 (64) 94 04/07/20 02:36 82 57 132/38 (69) 92 04/07/20 02:30 79 18 76/39 (51) 97 04/07/20 02:15 81 15 98/46 (63) 99 04/07/20 02:00 111/36 04/07/20 02:00 111/36 04/07/20 02:00 81 20 95/47 (63) 99 04/07/20 01:45 81 16 93/50 (64) 100 04/07/20 01:30 80 16 94/46 (62) 100 04/07/20 01:15 80 18 93/43 (60) 99 04/07/20 01:11 96/47 04/07/20 01:00 93/43 04/07/20 01:00 93/43 04/07/20 01:00 81 17 96/47 (63) 100 04/07/20 00:45 82 16 94/47 (63) 100 04/07/20 00:30 82 21 93/48 (63) 99 04/07/20 00:15 82 24 97/43 (61) 100 04/07/20 00:00 Mechanical Ventilator Mechanical Ventilator 04/07/20 00:00 100 04/07/20 00:00 99/47 04/07/20 00:00 99/46 04/07/20 00:00 82 24 99/46 (63) 100 04/07/20 00:00 83 2120 23:45 82 24 95/48 (64) 99 04/06/20 23:30 82 24 91/43 (59) 100 04/06/20 23:24 82 24 100 04/06/20 23:15 81 24 96/48 (64) 99 20 23:00 81 24 93/47 (62) 100 04/06/20 23:00 93/47 20 23:00 93/47 04/06/20 22:45 81 24 98/49 (65) 100 04/06/20 22:30 81 24 96/47 (63) 100 04/06/20 22:16 83 94/49 04/06/20 22:16 94/49 04/06/20 22:00 94/49 04/06/20 22:00 94/49 04/06/20 22:00 83 24 94/49 (64) 100 04/06/20 21:45 83 24 99/47 (64) 100 04/06/20 21:30 83 24 101/44 (63) 100 04/06/20 21:00 95/48 20 21:00 95/48 04/06/20 21:00 82 24 93/43 (60) 100 04/06/20 20:45 82 24 100/36 (57) 100 04/06/20 20:30 82 24 102/50 (67) 100 20 20:23 95/47 20 20:15 82 24 96/41 (59) 99 2120 20:00 Mechanical Ventilator Mechanical Ventilator 04/06/20 20:00 100.2 83 24 95/47 (63) 99 20 20:00 100 20 20:00 95/47 20 20:00 95/47 20 20:00 87 20 19:45 83 24 92/42 (59) 100 20 19:44 83 24 100 04/06/20 19:36 88/40 520 19:33 82 24 78/36 (50) 99 04/06/20 19:30 83 24 88/40 (56) 100 04/06/20 19:00 99/47 04/06/20 19:00 99/47 04/06/20 19:00 83 46 99/47 (64) 100 04/06/20 18:30 83 39 94/46 (62) 99 04/06/20 18:00 95/46 04/06/20 18:00 95/46 04/06/20 18:00 82 24 95/46 (62) 100 04/06/20 17:30 83 35 95/43 (60) 100 Intake and Output 04/06/20 04/07/20 19:00 07:00 Intake Total 2782.859 ml 2292.007 ml Output Total 120 ml 60 ml Balance 2662.859 ml 2232.007 ml Free Water 60 ml IV Total 2722.859 ml 2292.007 ml Tube Feeding 0 ml 0 ml Output Urine Total 120 ml 60 ml Laboratory Tests 04/07/20 03:11: White Blood Count 10.9H, Red Blood Count 2.40L, Hemoglobin 8.7L, Hematocrit 25.0L, Mean Corpuscular Volume 104H, Mean Corpuscular Hemoglobin 36.1H, Mean Corpuscular Hemoglobin Concent 34.7, Red Cell Distribution Width 19.7H, Platelet Count 99L, Mean Platelet Volume 9.0, Neutrophils (%) (Auto) , Lymphocytes (%) (Auto) , Monocytes (%) (Auto) , Eosinophils (%) (Auto) , Basophils (%) (Auto) , Sodium Level 119*L, Potassium Level 4.2, Chloride Level 87L, Carbon Dioxide Level 28, Anion Gap 4L, Blood Urea Nitrogen 60H, Creatinine 0.9, Estimat Glomerular Filtration Rate > 60, Glucose Level 146H, Uric Acid 11.5H, Calcium Level 7.5L, Phosphorus Level 5.8H, Magnesium Level 2.4, Total Bilirubin 1.6H, Direct Bilirubin 0.8H, Aspartate Amino Transf (AST/SGOT) 379H, Alanine Aminotransferase (ALT/SGPT) 126H, Alkaline Phosphatase 435H, Troponin I 0.060H, C-Reactive Protein, Quantitative 7.1H, Pro-B-Type Natriuretic Peptide 2105H, Total Protein 5.5L, Albumin 1.8L, Globulin 3.7, Albumin/Globulin Ratio 0.5L 04/07/20 07:25: Arterial Blood pH 7.328L, Arterial Blood Partial Pressure CO2 55.2*H, Arterial Blood Partial Pressure O2 96.4, Arterial Blood HCO3 28.3H, Arterial Blood Oxygen Saturation 95.8, Arterial Blood Base Excess 1.8, Joaquin Test Positive Height (Feet): 5 Height (Inches): 1.00 Weight (Pounds): 235 Celso Moreno MD April 07, 2020 17:18
[2020-04-07] MEDS: Dyna-Hex 2% Top Sol 2oz TOPIC SCH (20:46)
[2020-04-07] MEDS: DOPAMINE 800mg/250ml 250 ML IV SCH (22:01)
--- NOTE | 2020-04-07 22:53 | Cardiology Progress Note ---
Assessment/Plan Assessment/Plan 1. Acute hypoxic hypercapnic respiratory failure, due to bilateral airspace disease in additional to bilateral pleural effusion caused by COVID-19 infection , multiorgan failure, grim prognosis, low saturation despite high FiO2. 2. Septic shock on 4 vasopressors, LVEF at 60%. 3. Consumptive coagulopathy with thrombocytopenia. 4. Bilateral lower extremity cellulitis. 5. HCV infection with liver cirrhosis. 6. Anoxic/hepatic encephalopathy, ammonia elevated. 7. Severe hyponatremia. 8. Shock liver Subjective Subjective Sinus rhythm at rate of 73. On 4 vasopressors. Intubated. Hypotensive. Objective Last 24 Hour Vital Signs Date Time Temp Pulse Resp B/P (MAP) Pulse Ox O2 Delivery O2 Flow Rate FiO2 04/07/20 22:23 68/25 04/07/20 22:01 77/31 04/07/20 21:45 73 44 71/33 (46) 97 04/07/20 21:30 73 48 80/33 (49) 96 04/07/20 21:15 74 46 81/29 (46) 96 04/07/20 21:00 81/29 04/07/20 21:00 81/29 04/07/20 21:00 74 45 81/35 (50) 96 04/07/20 20:47 75 85/31 04/07/20 20:45 74 51 85/37 (53) 96 04/07/20 20:30 73 41 75/28 (44) 96 04/07/20 20:15 74 30 80/30 (47) 96 04/07/20 20:00 Mechanical Ventilator Mechanical Ventilator 04/07/20 20:00 100 04/07/20 20:00 74 40 81/31 (48) 96 04/07/20 20:00 82/36 04/07/20 20:00 82/36 04/07/20 20:00 74 04/07/20 19:51 75 24 100 04/07/20 19:45 74 36 79/31 (47) 97 04/07/20 19:31 79/32 04/07/20 19:30 75 42 79/36 (50) 96 04/07/20 19:15 75 40 79/32 (48) 96 04/07/20 19:00 75 39 78/29 (45) 96 04/07/20 19:00 84/29 04/07/20 19:00 84/29 04/07/20 18:30 75 45 78/31 (47) 97 04/07/20 18:00 75 42 81/28 (45) 97 04/07/20 18:00 82/34 04/07/20 18:00 82/34 04/07/20 17:36 75 37 84/37 (53) 95 04/07/20 17:03 75 37 84/39 (54) 96 04/07/20 17:00 79/30 04/07/20 17:00 79/30 04/07/20 16:30 76 45 83/39 (54) 95 04/07/20 16:24 85/42 04/07/20 16:23 84/38 04/07/20 16:00 100 04/07/20 16:00 Mechanical Ventilator Mechanical Ventilator 04/07/20 16:00 85/42 04/07/20 16:00 85/42 04/07/20 16:00 98.2 76 42 86/41 (56) 95 04/07/20 16:00 75 04/07/20 15:30 76 40 83/41 (55) 96 04/07/20 15:00 82/42 04/07/20 15:00 82/42 04/07/20 15:00 76 45 84/38 (53) 96 04/07/20 14:32 76 24 100 04/07/20 14:30 76 42 83/34 (50) 95 04/07/20 14:18 95/41 04/07/20 14:00 76 42 83/34 (50) 95 04/07/20 14:00 95/41 04/07/20 14:00 95/41 04/07/20 13:30 76 43 85/40 (55) 97 04/07/20 13:20 77 95/41 04/07/20 13:20 95/41 04/07/20 13:00 95/41 04/07/20 13:00 95/41 04/07/20 13:00 75 39 92/37 (55) 98 04/07/20 12:26 76 37 95/42 (59) 97 04/07/20 12:00 98.1 76 47 86/43 (57) 98 04/07/20 12:00 86/43 04/07/20 12:00 86/43 04/07/20 12:00 Mechanical Ventilator Mechanical Ventilator 04/07/20 12:00 75 04/07/20 12:00 100 04/07/20 11:31 91/46 04/07/20 11:30 76 45 87/38 (54) 98 04/07/20 11:00 75 49 89/44 (59) 100 04/07/20 11:00 103/75 04/07/20 11:00 103/75 04/07/20 10:34 75 24 100 04/07/20 10:30 76 46 90/46 (61) 99 04/07/20 10:00 91/50 04/07/20 10:00 91/50 04/07/20 10:00 77 43 91/38 (55) 97 04/07/20 09:30 76 51 89/38 (55) 97 04/07/20 09:00 95/60 04/07/20 09:00 95/60 04/07/20 09:00 77 51 90/46 (61) 100 04/07/20 08:30 76 41 90/48 (62) 100 04/07/20 08:00 98.3 04/07/20 08:00 Mechanical Ventilator Mechanical Ventilator 04/07/20 08:00 76 42 91/44 (60) 99 04/07/20 08:00 96/51 04/07/20 08:00 96/51 04/07/20 08:00 100 04/07/20 08:00 76 04/07/20 07:10 78 24 100 04/07/20 07:00 78 24 89/48 (62) 99 04/07/20 07:00 89/48 04/07/20 07:00 89/48 04/07/20 06:29 94/41 04/07/20 06:28 94/41 04/07/20 06:00 94/47 04/07/20 06:00 94/47 04/07/20 06:00 77 24 91/46 (61) 100 04/07/20 05:30 77 24 94/46 (62) 100 04/07/20 05:30 77 91/44 04/07/20 05:15 77 24 91/41 (58) 100 04/07/20 05:13 91/44 04/07/20 05:00 77 24 93/48 (63) 100 04/07/20 05:00 91/44 04/07/20 05:00 91/44 04/07/20 04:45 77 24 91/44 (60) 100 04/07/20 04:30 77 24 94/45 (61) 100 04/07/20 04:15 77 24 94/36 (55) 100 04/07/20 04:11 90/44 04/07/20 04:00 99.4 78 24 90/44 (59) 98 04/07/20 04:00 100 04/07/20 04:00 77 04/07/20 04:00 96/42 04/07/20 04:00 96/42 04/07/20 04:00 Mechanical Ventilator Mechanical Ventilator 04/07/20 03:45 78 24 96/50 (65) 98 04/07/20 03:30 79 24 95/46 (62) 98 04/07/20 03:15 80 24 92/46 (61) 95 04/07/20 03:12 81 24 100 04/07/20 03:00 80 24 97/50 (66) 95 04/07/20 03:00 93/45 04/07/20 03:00 93/45 04/07/20 02:45 80 50 97/47 (64) 94 04/07/20 02:36 82 57 132/38 (69) 92 04/07/20 02:30 79 18 76/39 (51) 97 04/07/20 02:15 81 15 98/46 (63) 99 04/07/20 02:00 111/36 04/07/20 02:00 111/36 04/07/20 02:00 81 20 95/47 (63) 99 04/07/20 01:45 81 16 93/50 (64) 100 04/07/20 01:30 80 16 94/46 (62) 100 04/07/20 01:15 80 18 93/43 (60) 99 04/07/20 01:11 96/47 04/07/20 01:00 93/43 04/07/20 01:00 93/43 04/07/20 01:00 81 17 96/47 (63) 100 04/07/20 00:45 82 16 94/47 (63) 100 04/07/20 00:30 82 21 93/48 (63) 99 04/07/20 00:15 82 24 97/43 (61) 100 04/07/20 00:00 Mechanical Ventilator Mechanical Ventilator 04/07/20 00:00 100 04/07/20 00:00 99/47 04/07/20 00:00 99/46 04/07/20 00:00 82 24 99/46 (63) 100 04/07/20 00:00 83 04/06/20 23:45 82 24 95/48 (64) 99 04/06/20 23:30 82 24 91/43 (59) 100 04/06/20 23:24 82 24 100 04/06/20 23:15 81 24 96/48 (64) 99 04/06/20 23:00 81 24 93/47 (62) 100 04/06/20 23:00 93/47 04/06/20 23:00 93/47 Intake and Output 04/06/20 04/07/20 19:00 07:00 Intake Total 2782.859 ml 2292.007 ml Output Total 120 ml 60 ml Balance 2662.859 ml 2232.007 ml Free Water 60 ml IV Total 2722.859 ml 2292.007 ml Tube Feeding 0 ml 0 ml Output Urine Total 120 ml 60 ml 2D Echo: EF 60%, Mild LVH, Mild MR. RVSP 44 mmHg, Normal LVD Fxn Laboratory Tests Test 04/07/20 03:11 04/07/20 07:25 White Blood Count 10.9 K/UL (4.8-10.8) H Red Blood Count 2.40 M/UL (4.20-5.40) L Hemoglobin 8.7 G/DL (12.0-16.0) L Hematocrit 25.0 % (37.0-47.0) L Mean Corpuscular Volume 104 FL (80-99) H Mean Corpuscular Hemoglobin 36.1 PG (27.0-31.0) H Mean Corpuscular Hemoglobin Concent 34.7 G/DL (32.0-36.0) Red Cell Distribution Width 19.7 % (11.6-14.8) H Platelet Count 99 K/UL (150-450) L Mean Platelet Volume 9.0 FL (6.5-10.1) Neutrophils (%) (Auto) % (45.0-75.0) Lymphocytes (%) (Auto) % (20.0-45.0) Monocytes (%) (Auto) % (1.0-10.0) Eosinophils (%) (Auto) % (0.0-3.0) Basophils (%) (Auto) % (0.0-2.0) Sodium Level 119 MMOL/L (136-145) *L Potassium Level 4.2 MMOL/L (3.5-5.1) Chloride Level 87 MMOL/L (98-107) L Carbon Dioxide Level 28 MMOL/L (21-32) Anion Gap 4 mmol/L (5-15) L Blood Urea Nitrogen 60 mg/dL (7-18) H Creatinine 0.9 MG/DL (0.55-1.30) Estimat Glomerular Filtration Rate > 60 mL/min (>60) Glucose Level 146 MG/DL (74-106) H Uric Acid 11.5 MG/DL (2.6-7.2) H Calcium Level 7.5 MG/DL (8.5-10.1) L Phosphorus Level 5.8 MG/DL (2.5-4.9) H Magnesium Level 2.4 MG/DL (1.8-2.4) Total Bilirubin 1.6 MG/DL (0.2-1.0) H Direct Bilirubin 0.8 MG/DL (0.0-0.3) H Aspartate Amino Transf (AST/SGOT) 379 U/L (15-37) H Alanine Aminotransferase (ALT/SGPT) 126 U/L (12-78) H Alkaline Phosphatase 435 U/L (46-116) H Troponin I 0.060 ng/mL (0.000-0.056) C-Reactive Protein, Quantitative 7.1 mg/dL (0.00-0.90) H Pro-B-Type Natriuretic Peptide 2105 pg/mL (0-125) H Total Protein 5.5 G/DL (6.4-8.2) L Albumin 1.8 G/DL (3.4-5.0) L Globulin 3.7 g/dL Albumin/Globulin Ratio 0.5 (1.0-2.7) L Arterial Blood pH 7.328 (7.350-7.450) Arterial Blood Partial Pressure CO2 55.2 mmHg (35.0-45.0) *H Arterial Blood Partial Pressure O2 96.4 mmHg (75.0-100.0) Arterial Blood HCO3 28.3 mmol/L (22.0-26.0) H Arterial Blood Oxygen Saturation 95.8 % (95-100) Arterial Blood Base Excess 1.8 (-2-2) Joaquin Test Positive Objective HEENT: Atraumatic and normocephalic. Anicteric. Intubated. NECK: JVP cannot be assessed. No carotid bruit. + ETT. CARDIOVASCULAR: Normal S1, S2. Regular rate and rhythm. No murmurs, gallops, or rubs. PMI is at fourth intercostal space at left midclavicular line. LUNGS: Bibasilar crackles. ABDOMEN: Soft, nontender, and nondistended. No hepatosplenomegaly. Positive bowel sounds. EXTREMITIES: A 3+ edema bilaterally associated with erythema with blistering and crust formation of both feet. Berto Gonzalez MD April 07, 2020 22:53
[2020-04-08] VITALS (57 sets, daily range): BP systolic 53–76; BP diastolic 14–37
--- NOTE | 2020-04-08 00:33 | Pulmonolgy Critical Care Note ---
Critical Care - Asmt/Plan Assessment/Plan: Pulmonary CCM Progress Note HPI Patient is a 59 year old woman with severe COVID 19 Pneumonia, past history of significant obesity, cirrhosis, bilateral lower extremity swelling, cellulitis Persistent severe respiratory failure. Patient had previous hospitalizations for cellulitis. PMH Hypothyroidism, Obesity, Cirrhosis, Anemia, Anxiety, Cellulitis Remains unresponsive off sedation > 48 hours, pupils dilated, minimally reactive to pain, non purposeful, not triggering ventilator, CT Head pending, not performed as COVID-19 positive. Neurology consulted. EEG severe encephalopathy Previous VQ no significant perfusion abnormality, prev LE dupplex negative, had high DDimer On four pressors, double concentrated Did not tolerating Proning previously Worsening PaO2/FIO2, P 18, FIO2 100%%, has elevated PaCO2 Renal following, hyponatremic Hypothyroidism, elevated glucose, Endocrine following, low 9:00 AM Cort[facility] previously - Remdesavir requested for when available, [facility] - not available as yet Previously received IL6 inhibitor inititial dose (4mg/Kg - all that was available), subsequent dose pending, previously on steroids See earlier on 04/07/2020 Ethics/family meeting pending Allergies: No Known Allergies Past Medical History: Obesity, Cirrhosis, Anemia, Anxiety, Cellulitis, Hypothyroidism All Other Systems: negative except mentioned in HPI Physical Exam Vital Signs Noted General Appearance: Obese, no reaction to pain despite no sedation, intubated Head: normocephalic, atraumatic Eyes: pupils dilated and non responsive to light bilaterally ENT: moist MM, no LN Respiratory: Bilateral crackles, bilateral rhonchi, not overbreathing the ventilator Cardiovascular: regular rate, rhythm, HS1, HS2 RRR Gastrointestinal: Obese, soft non tender, ND Musculoskeletal: Mild edema and erythema bilateral lower extremity, patient has crusting on both feet, Neurologic: non responsive, no focal signs noted, no seizures, no response to pain Impression: Covid Pneumonia, s/p IL6 inhibitor, sp Hydroxychloroquine, Ivermectin Severe Respiratory Failure, high PEEP Persistent hypoxia, worsening PCO2 Bilateral dilated non reactive pupils, patient minimally responsive despite no sedation Not triggering ventilator currently Minimal response to pain Increased WCC - ID following ID following Bilateral Lower Extremity Cellulitis on admission Elevated NPA, severe bilateral edema - improving Cirrhosis, elevated transaminases/ammonia Splenomegaly Anemia Hypothyroidism Extremely poor prognosis Plan Neurology Consultated/CT head pending IV Antibiotics per ID S/p trial of steroids - currently 10 mg daily, being weaned to off, s/p IL6 inhibitor previously Surgery following for wounds Hematology following for anemia, observing for Neutropenia/thrombocytopenia Renal following for hypernatremia/volume status Endocrine following for Hypothyroidism, on ISS Monitor labs Bronchodilators PPX - SCD AC VC Proning PRN Supplement electrolytes PRN Albuterol PRN MDI MEDICATION TECH Medications Previously d/w Patients daughter Tri - discussed grave prognosis, possibility of patient having had possible stroke/IC event, suggested DNAR - wants full code Case d/w RN Previously [facility] - Remdesavir ordered, awaiting supply Labs Noted Chest X-Ray: Cardiomegaly, left lower lobe atelectasis versus effusion, worsening infiltrates/congestion Subjective ROS Limited/Unobtainable: No Constitutional: Reports: no symptoms Gastrointestinal/Abdominal: Reports: no symptoms Musculoskeletal: Reports: other - SOB Allergies: Coded Allergies: No Known Allergies (Unverified , 02/29/20) ICU time 50 minutes Critical Care - Objective Last 24 Hour Vital Signs Date Time Temp Pulse Resp B/P (MAP) Pulse Ox O2 Delivery O2 Flow Rate FiO2 04/07/20 22:57 73 23 100 04/07/20 22:23 68/25 04/07/20 22:01 77/31 04/07/20 22:01 77/31 04/07/20 22:00 73 40 76/30 (45) 96 73 04/07/20 21:45 73 44 71/33 (46) 97 04/07/20 21:30 73 48 80/33 (49) 96 04/07/20 21:15 74 46 81/29 (46) 96 04/07/20 21:00 81/29 04/07/20 21:00 81/29 04/07/20 21:00 74 45 81/35 (50) 96 04/07/20 20:47 75 85/31 04/07/20 20:45 74 51 85/37 (53) 96 04/07/20 20:30 73 41 75/28 (44) 96 04/07/20 20:15 74 30 80/30 (47) 96 04/07/20 20:00 Mechanical Ventilator Mechanical Ventilator 04/07/20 20:00 100 04/07/20 20:00 74 40 81/31 (48) 96 04/07/20 20:00 82/36 5/22/20 20:00 82/36 04/07/20 20:00 74 04/07/20 19:51 75 24 100 04/07/20 19:45 74 36 79/31 (47) 97 04/07/20 19:31 79/32 04/07/20 19:30 75 42 79/36 (50) 96 04/07/20 19:15 75 40 79/32 (48) 96 04/07/20 19:00 75 39 78/29 (45) 96 04/07/20 19:00 84/29 04/07/20 19:00 84/29 04/07/20 18:30 75 45 78/31 (47) 97 04/07/20 18:00 75 42 81/28 (45) 97 04/07/20 18:00 82/34 04/07/20 18:00 82/34 04/07/20 17:36 75 37 84/37 (53) 95 04/07/20 17:03 75 37 84/39 (54) 96 04/07/20 17:00 79/30 04/07/20 17:00 79/30 04/07/20 16:30 76 45 83/39 (54) 95 04/07/20 16:24 85/42 04/07/20 16:23 84/38 04/07/20 16:00 100 04/07/20 16:00 Mechanical Ventilator Mechanical Ventilator 04/07/20 16:00 85/42 04/07/20 16:00 85/42 04/07/20 16:00 98.2 76 42 86/41 (56) 95 04/07/20 16:00 75 04/07/20 15:30 76 40 83/41 (55) 96 04/07/20 15:00 82/42 04/07/20 15:00 82/42 04/07/20 15:00 76 45 84/38 (53) 96 04/07/20 14:32 76 24 100 04/07/20 14:30 76 42 83/34 (50) 95 04/07/20 14:18 95/41 04/07/20 14:00 76 42 83/34 (50) 95 04/07/20 14:00 95/41 04/07/20 14:00 95/41 04/07/20 13:30 76 43 85/40 (55) 97 04/07/20 13:20 77 95/41 04/07/20 13:20 95/41 04/07/20 13:00 95/41 04/07/20 13:00 95/41 04/07/20 13:00 75 39 92/37 (55) 98 04/07/20 12:26 76 37 95/42 (59) 97 04/07/20 12:00 98.1 76 47 86/43 (57) 98 04/07/20 12:00 86/43 04/07/20 12:00 86/43 04/07/20 12:00 Mechanical Ventilator Mechanical Ventilator 04/07/20 12:00 75 04/07/20 12:00 100 04/07/20 11:31 91/46 04/07/20 11:30 76 45 87/38 (54) 98 04/07/20 11:00 75 49 89/44 (59) 100 04/07/20 11:00 103/75 04/07/20 11:00 103/75 04/07/20 10:34 75 24 100 04/07/20 10:30 76 46 90/46 (61) 99 04/07/20 10:00 91/50 04/07/20 10:00 91/50 04/07/20 10:00 77 43 91/38 (55) 97 04/07/20 09:30 76 51 89/38 (55) 97 04/07/20 09:00 95/60 04/07/20 09:00 95/60 04/07/20 09:00 77 51 90/46 (61) 100 04/07/20 08:30 76 41 90/48 (62) 100 04/07/20 08:00 98.3 04/07/20 08:00 Mechanical Ventilator Mechanical Ventilator 04/07/20 08:00 76 42 91/44 (60) 99 04/07/20 08:00 96/51 04/07/20 08:00 96/51 04/07/20 08:00 100 04/07/20 08:00 76 04/07/20 07:10 78 24 100 04/07/20 07:00 78 24 89/48 (62) 99 04/07/20 07:00 89/48 04/07/20 07:00 89/48 04/07/20 06:29 94/41 04/07/20 06:28 94/41 04/07/20 06:00 94/47 04/07/20 06:00 94/47 04/07/20 06:00 77 24 91/46 (61) 100 04/07/20 05:30 77 24 94/46 (62) 100 04/07/20 05:30 77 91/44 04/07/20 05:15 77 24 91/41 (58) 100 04/07/20 05:13 91/44 04/07/20 05:00 77 24 93/48 (63) 100 04/07/20 05:00 91/44 04/07/20 05:00 91/44 04/07/20 04:45 77 24 91/44 (60) 100 04/07/20 04:30 77 24 94/45 (61) 100 04/07/20 04:15 77 24 94/36 (55) 100 04/07/20 04:11 90/44 04/07/20 04:00 99.4 78 24 90/44 (59) 98 04/07/20 04:00 100 04/07/20 04:00 77 04/07/20 04:00 96/42 04/07/20 04:00 96/42 04/07/20 04:00 Mechanical Ventilator Mechanical Ventilator 04/07/20 03:45 78 24 96/50 (65) 98 04/07/20 03:30 79 24 95/46 (62) 98 04/07/20 03:15 80 24 92/46 (61) 95 04/07/20 03:12 81 24 100 04/07/20 03:00 80 24 97/50 (66) 95 04/07/20 03:00 93/45 04/07/20 03:00 93/45 04/07/20 02:45 80 50 97/47 (64) 94 04/07/20 02:36 82 57 132/38 (69) 92 04/07/20 02:30 79 18 76/39 (51) 97 04/07/20 02:15 81 15 98/46 (63) 99 04/07/20 02:00 111/36 04/07/20 02:00 111/36 04/07/20 02:00 81 20 95/47 (63) 99 04/07/20 01:45 81 16 93/50 (64) 100 04/07/20 01:30 80 16 94/46 (62) 100 04/07/20 01:15 80 18 93/43 (60) 99 04/07/20 01:11 96/47 04/07/20 01:00 93/43 04/07/20 01:00 93/43 04/07/20 01:00 81 17 96/47 (63) 100 04/07/20 00:45 82 16 94/47 (63) 100 Accucheck: 145 Critical Care - Subjective ROS Limited/Unobtainable: Yes Condition: critical IV Access: PICC FI02: 100 Vent Support Breath Rate: 24 Vent Support Mode: AC Vent Tidal Volume: 400 Sputum Amount: Small PEEP: 18.0 PIP: 32 Tube Feeding Amount: 0 I&O: Intake and Output 04/07/20 04/08/20 19:00 07:00 Intake Total 2448.452 ml 468.824 ml Output Total 295 ml 50 ml Balance 2153.452 ml 418.824 ml Free Water 70 ml IV Total 2378.452 ml 468.824 ml Tube Feeding 0 ml 0 ml Output Urine Total 295 ml 50 ml ET-Tube: 7.5 ET Position: 21 Doron Carrillo MD April 08, 2020 00:33
[2020-04-08] MEDS: Metoclopramide 10mg/2ml Inj IVP SCH ×5 (00:42→23:28)
[2020-04-08] MEDS: DOPAMINE 800mg/250ml 250 ML IV SCH ×4 (03:33→19:55)
[2020-04-08] MEDS: DEXTROSE IV SCH ×3 (03:35→17:18)
[2020-04-08] MEDS: PHENYLEPHRINE IV SCH ×3 (03:35→17:18)
[2020-04-08] MEDS: Meropenem 1 GM in NS 55 ML IVPB SCH ×3 (05:52→21:25)
[2020-04-08] MEDS: Lactulose 20gm/30ml UDC ORAL SCH ×3 (05:52→21:41)
[2020-04-08] MEDS: Vancomycin 500 MG in NS 110 ML IVPB SCH ×2 (05:52→17:23)
[2020-04-08] MEDS: NovoLOG Insulin Flexpen SUBQ SCH ×5 (06:00→23:37)
[2020-04-08] MEDS: Norepinephrine Bitartrate 16 MG in D5W 500ml 550 ML IV SCH ×2 (07:33→17:19)
[2020-04-08] MEDS: Midodrine 10mg tab NG SCH ×3 (08:12→17:23)
[2020-04-08] MEDS: EPINEPHrine 1mg/1ml Amp 1 MG in D5W 249 ML IV SCH ×11 (08:12→22:27)
[2020-04-08] MEDS: Fluconazole 100mg tab NG SCH (08:13)
--- NOTE | 2020-04-08 09:58 | General Progress Note ---
Assessment/Plan Problem List: (1) Cellulitis ICD Codes: L03.90 - Cellulitis, unspecified SNOMED: 625682496 Qualifiers: Qualified Codes: L03.119 - Cellulitis of unspecified part of limb Status: progressing, not improved Assessment/Plan: severe worsenig hyponatremia .treatment per dr bernstein respiratory failure eeg shows severe encephalopathy getting full support covid brain encephalopathy critical condition need comfort care and told duaghter mutiple times that need to do dnr and withdrawal of care and comfort measures Subjective ROS Limited/Unobtainable: Yes Allergies: Coded Allergies: No Known Allergies (Unverified , 02/29/20) Objective Last 24 Hour Vital Signs Date Time Temp Pulse Resp B/P (MAP) Pulse Ox O2 Delivery O2 Flow Rate FiO2 04/08/20 09:30 69 24 76/34 (48) 76 04/08/20 09:27 71 69/28 04/08/20 09:26 65/28 04/08/20 09:00 69 24 72/30 (44) 79 04/08/20 08:30 70 24 70/29 (43) 76 04/08/20 08:00 97.6 68 24 69/29 (42) 76 04/08/20 08:00 70 04/08/20 08:00 100 04/08/20 08:00 Mechanical Ventilator Mechanical Ventilator 04/08/20 07:33 67/33 04/08/20 07:30 67 24 54/27 (36) 80 04/08/20 07:01 68 24 100 04/08/20 07:00 67/33 04/08/20 07:00 67/33 04/08/20 07:00 68 24 67/37 (47) 76 04/08/20 06:30 69 24 68/34 (45) 77 04/08/20 06:00 69 24 72/32 (45) 77 04/08/20 06:00 68/32 04/08/20 06:00 68/32 04/08/20 05:30 69 24 70/33 (45) 76 04/08/20 05:00 68/30 04/08/20 05:00 68/30 04/08/20 05:00 69 24 67/29 (42) 85 04/08/20 04:30 69 22 64/24 (37) 83 04/08/20 04:15 67 24 100 04/08/20 04:00 72 04/08/20 04:00 100 04/08/20 04:00 Mechanical Ventilator Mechanical Ventilator 04/08/20 04:00 71/27 04/08/20 04:00 71/27 04/08/20 04:00 97.3 70 24 71/27 (42) 94 04/08/20 03:35 69 60/30 04/08/20 03:33 70/22 04/08/20 03:30 69 24 60/30 (40) 94 04/08/20 03:00 74/28 04/08/20 03:00 74/28 04/08/20 03:00 70 24 74/28 (43) 94 04/08/20 02:30 71 24 74/27 (43) 94 04/08/20 02:00 71 24 76/33 (47) 95 04/08/20 02:00 75/33 04/08/20 02:00 75/33 04/08/20 01:30 72 24 75/32 (46) 95 04/08/20 01:00 73 20 76/28 (44) 94 04/08/20 01:00 76/28 04/08/20 01:00 76/28 04/08/20 00:30 72 19 74/32 (46) 95 04/08/20 00:00 Mechanical Ventilator Mechanical Ventilator 04/08/20 00:00 100 04/08/20 00:00 75/32 04/08/20 00:00 75/32 04/08/20 00:00 76 04/08/20 00:00 97.4 72 19 75/32 (46) 95 04/07/20 23:30 73 21 79/33 (48) 95 04/07/20 23:00 72/35 04/07/20 23:00 72/35 04/07/20 23:00 73 21 72/35 (47) 96 04/07/20 22:57 73 23 100 04/07/20 22:30 73 17 77/30 (46) 95 04/07/20 22:23 68/25 04/07/20 22:01 77/31 04/07/20 22:01 77/31 04/07/20 22:00 73 40 76/30 (45) 96 73 04/07/20 21:45 73 44 71/33 (46) 97 04/07/20 21:30 73 48 80/33 (49) 96 04/07/20 21:15 74 46 81/29 (46) 96 04/07/20 21:00 81/29 04/07/20 21:00 81/29 04/07/20 21:00 74 45 81/35 (50) 96 04/07/20 20:47 75 85/31 04/07/20 20:45 74 51 85/37 (53) 96 04/07/20 20:30 73 41 75/28 (44) 96 04/07/20 20:15 74 30 80/30 (47) 96 04/07/20 20:00 Mechanical Ventilator Mechanical Ventilator 04/07/20 20:00 100 04/07/20 20:00 74 40 81/31 (48) 96 04/07/20 20:00 82/36 04/07/20 20:00 82/36 04/07/20 20:00 74 04/07/20 19:51 75 24 100 04/07/20 19:45 74 36 79/31 (47) 97 04/07/20 19:31 79/32 04/07/20 19:30 75 42 79/36 (50) 96 04/07/20 19:15 75 40 79/32 (48) 96 04/07/20 19:00 75 39 78/29 (45) 96 04/07/20 19:00 84/29 04/07/20 19:00 84/29 04/07/20 18:30 75 45 78/31 (47) 97 04/07/20 18:00 75 42 81/28 (45) 97 04/07/20 18:00 82/34 04/07/20 18:00 82/34 04/07/20 17:36 75 37 84/37 (53) 95 04/07/20 17:03 75 37 84/39 (54) 96 04/07/20 17:00 79/30 04/07/20 17:00 79/30 04/07/20 16:30 76 45 83/39 (54) 95 04/07/20 16:24 85/42 04/07/20 16:23 84/38 04/07/20 16:00 100 04/07/20 16:00 Mechanical Ventilator Mechanical Ventilator 04/07/20 16:00 85/42 04/07/20 16:00 85/42 04/07/20 16:00 98.2 76 42 86/41 (56) 95 04/07/20 16:00 75 04/07/20 15:30 76 40 83/41 (55) 96 04/07/20 15:00 82/42 04/07/20 15:00 82/42 04/07/20 15:00 76 45 84/38 (53) 96 04/07/20 14:32 76 24 100 04/07/20 14:30 76 42 83/34 (50) 95 04/07/20 14:18 95/41 04/07/20 14:00 76 42 83/34 (50) 95 04/07/20 14:00 95/41 04/07/20 14:00 95/41 04/07/20 13:30 76 43 85/40 (55) 97 04/07/20 13:20 77 95/41 04/07/20 13:20 95/41 04/07/20 13:00 95/41 04/07/20 13:00 95/41 04/07/20 13:00 75 39 92/37 (55) 98 04/07/20 12:26 76 37 95/42 (59) 97 04/07/20 12:00 98.1 76 47 86/43 (57) 98 04/07/20 12:00 86/43 04/07/20 12:00 86/43 04/07/20 12:00 Mechanical Ventilator Mechanical Ventilator 04/07/20 12:00 75 04/07/20 12:00 100 04/07/20 11:31 91/46 04/07/20 11:30 76 45 87/38 (54) 98 04/07/20 11:00 75 49 89/44 (59) 100 04/07/20 11:00 103/75 04/07/20 11:00 103/75 04/07/20 10:34 75 24 100 04/07/20 10:30 76 46 90/46 (61) 99 04/07/20 10:00 91/50 04/07/20 10:00 91/50 04/07/20 10:00 77 43 91/38 (55) 97 Intake and Output 04/07/20 04/08/20 19:00 07:00 Intake Total 2448.452 ml 2027.499 ml Output Total 295 ml 105 ml Balance 2153.452 ml 1922.499 ml Free Water 70 ml IV Total 2378.452 ml 1967.499 ml Tube Feeding 0 ml 0 ml Other 60 ml Output Urine Total 295 ml 105 ml # Bowel Movements 1 Height (Feet): 5 Height (Inches): 1.00 Weight (Pounds): 286 Celso Moreno MD April 08, 2020 09:58
--- NOTE | 2020-04-08 10:54 | Surgery Progress Note ---
Surgery Progress Note Subjective Symptoms: worse Objective Last 24 Hour Vital Signs Date Time Temp Pulse Resp B/P (MAP) Pulse Ox O2 Delivery O2 Flow Rate FiO2 04/08/20 10:30 70 24 76/25 (42) 82 04/08/20 10:00 71 24 76/21 (39) 84 04/08/20 10:00 76/21 04/08/20 10:00 76/21 04/08/20 09:30 69 24 76/34 (48) 76 04/08/20 09:27 71 69/28 04/08/20 09:26 65/28 04/08/20 09:25 65/28 04/08/20 09:00 69 24 72/30 (44) 79 04/08/20 09:00 72/30 04/08/20 09:00 72/30 04/08/20 08:30 70 24 70/29 (43) 76 04/08/20 08:00 97.6 68 24 69/29 (42) 76 04/08/20 08:00 70 04/08/20 08:00 69/29 04/08/20 08:00 69/29 04/08/20 08:00 100 04/08/20 08:00 Mechanical Ventilator Mechanical Ventilator 04/08/20 07:33 67/33 04/08/20 07:30 67 24 54/27 (36) 80 04/08/20 07:01 68 24 100 04/08/20 07:00 67/33 04/08/20 07:00 67/33 04/08/20 07:00 68 24 67/37 (47) 76 04/08/20 06:30 69 24 68/34 (45) 77 04/08/20 06:00 69 24 72/32 (45) 77 04/08/20 06:00 68/32 04/08/20 06:00 68/32 04/08/20 05:30 69 24 70/33 (45) 76 04/08/20 05:00 68/30 04/08/20 05:00 68/30 04/08/20 05:00 69 24 67/29 (42) 85 04/08/20 04:30 69 22 64/24 (37) 83 04/08/20 04:15 67 24 100 04/08/20 04:00 72 04/08/20 04:00 100 04/08/20 04:00 Mechanical Ventilator Mechanical Ventilator 04/08/20 04:00 71/27 04/08/20 04:00 71/27 04/08/20 04:00 97.3 70 24 71/27 (42) 94 04/08/20 03:35 69 60/30 04/08/20 03:33 70/22 04/08/20 03:30 69 24 60/30 (40) 94 04/08/20 03:00 74/28 04/08/20 03:00 74/28 04/08/20 03:00 70 24 74/28 (43) 94 04/08/20 02:30 71 24 74/27 (43) 94 04/08/20 02:00 71 24 76/33 (47) 95 04/08/20 02:00 75/33 04/08/20 02:00 75/33 04/08/20 01:30 72 24 75/32 (46) 95 04/08/20 01:00 73 20 76/28 (44) 94 04/08/20 01:00 76/28 04/08/20 01:00 76/28 04/08/20 00:30 72 19 74/32 (46) 95 04/08/20 00:00 Mechanical Ventilator Mechanical Ventilator 04/08/20 00:00 100 04/08/20 00:00 75/32 04/08/20 00:00 75/32 04/08/20 00:00 76 04/08/20 00:00 97.4 72 19 75/32 (46) 95 04/07/20 23:30 73 21 79/33 (48) 95 04/07/20 23:00 72/35 04/07/20 23:00 72/35 04/07/20 23:00 73 21 72/35 (47) 96 04/07/20 22:57 73 23 100 04/07/20 22:30 73 17 77/30 (46) 95 04/07/20 22:23 68/25 04/07/20 22:01 77/31 04/07/20 22:01 77/31 04/07/20 22:00 73 40 76/30 (45) 96 73 04/07/20 21:45 73 44 71/33 (46) 97 04/07/20 21:30 73 48 80/33 (49) 96 04/07/20 21:15 74 46 81/29 (46) 96 04/07/20 21:00 81/29 04/07/20 21:00 81/29 04/07/20 21:00 74 45 81/35 (50) 96 04/07/20 20:47 75 85/31 04/07/20 20:45 74 51 85/37 (53) 96 04/07/20 20:30 73 41 75/28 (44) 96 04/07/20 20:15 74 30 80/30 (47) 96 04/07/20 20:00 Mechanical Ventilator Mechanical Ventilator 04/07/20 20:00 100 04/07/20 20:00 74 40 81/31 (48) 96 04/07/20 20:00 82/36 04/07/20 20:00 82/36 04/07/20 20:00 74 04/07/20 19:51 75 24 100 04/07/20 19:45 74 36 79/31 (47) 97 04/07/20 19:31 79/32 04/07/20 19:30 75 42 79/36 (50) 96 04/07/20 19:15 75 40 79/32 (48) 96 04/07/20 19:00 75 39 78/29 (45) 96 04/07/20 19:00 84/29 04/07/20 19:00 84/29 04/07/20 18:30 75 45 78/31 (47) 97 04/07/20 18:00 75 42 81/28 (45) 97 04/07/20 18:00 82/34 04/07/20 18:00 82/34 04/07/20 17:36 75 37 84/37 (53) 95 04/07/20 17:03 75 37 84/39 (54) 96 04/07/20 17:00 79/30 04/07/20 17:00 79/30 04/07/20 16:30 76 45 83/39 (54) 95 04/07/20 16:24 85/42 04/07/20 16:23 84/38 04/07/20 16:00 100 04/07/20 16:00 Mechanical Ventilator Mechanical Ventilator 04/07/20 16:00 85/42 04/07/20 16:00 85/42 04/07/20 16:00 98.2 76 42 86/41 (56) 95 04/07/20 16:00 75 04/07/20 15:30 76 40 83/41 (55) 96 04/07/20 15:00 82/42 04/07/20 15:00 82/42 04/07/20 15:00 76 45 84/38 (53) 96 04/07/20 14:32 76 24 100 04/07/20 14:30 76 42 83/34 (50) 95 04/07/20 14:18 95/41 04/07/20 14:00 76 42 83/34 (50) 95 04/07/20 14:00 95/41 04/07/20 14:00 95/41 04/07/20 13:30 76 43 85/40 (55) 97 04/07/20 13:20 77 95/41 04/07/20 13:20 95/41 04/07/20 13:00 95/41 04/07/20 13:00 95/41 04/07/20 13:00 75 39 92/37 (55) 98 04/07/20 12:26 76 37 95/42 (59) 97 04/07/20 12:00 98.1 76 47 86/43 (57) 98 04/07/20 12:00 86/43 04/07/20 12:00 86/43 04/07/20 12:00 Mechanical Ventilator Mechanical Ventilator 04/07/20 12:00 75 04/07/20 12:00 100 04/07/20 11:31 91/46 04/07/20 11:30 76 45 87/38 (54) 98 04/07/20 11:00 75 49 89/44 (59) 100 04/07/20 11:00 103/75 04/07/20 11:00 103/75 I&O Intake and Output 04/07/20 04/08/20 19:00 07:00 Intake Total 2448.452 ml 2027.499 ml Output Total 295 ml 105 ml Balance 2153.452 ml 1922.499 ml Free Water 70 ml IV Total 2378.452 ml 1967.499 ml Tube Feeding 0 ml 0 ml Other 60 ml Output Urine Total 295 ml 105 ml # Bowel Movements 1 Dressing: other Wound: other Cardiovascular: RSR Respiratory: decreased breath sounds Abdomen: soft, decreased bowel sounds Extremities: edema, no cyanosis Plan Problems: (1) Cellulitis Assessment & Plan: bilateral lower extremity cellulitis / edema chronic venous status changes dermatitis no abscess no purulent drainage ulcerations forming. keep lower extremity elevated while in bed apply skin protectant / moisturizing cream daily okay to shower okay to wrap soft after cream abx as per ID for cellulitis okay for diet duplex ordered trend labs will follow with recs thank you No evidence of deep venous thrombosis involving the visualized veins of the RIGHT lower extremity. refused eval of left COVID ++ cxr noted cont current supportive care improving labs stable improving slowly wean pressors as tolerated Patient is acutely worsened intubated on vent support 2 pressors now worsening labs worsening Prognosis is guarded we will continue with maximal support efforts weaning vent weaning pressors leukocytosis trend lft's Diffuse bilateral interstitial and airspace opacities worsening again vent settings high on pressors worsening vent settings prognosis guarded DAILY ESTIMATED NEEDS: Needs based on obesity, cirrhosis, critical care/ 61kg abw 11-14 (actual body wt 102kg) kcals/kg 1631-8539 total kcals 1.5-2.5kg IBW (48kg IBW) g protein/kg 71-120 g total protein 25-30 mL/kg 8975-2421 total fluid mLs NUTRITION DIAGNOSIS: *Swallowing difficulty R/T respiratory failure as evidenced by pt now orally intubated, on pressor support, Covid-19 positive. *Decreased sodium and fat intake needs R/T cirrhosis dx, morbid obesity as evidenced by elev AST, elev NH3, BMI >50 (INACTIVE) CURRENT TF:NEPRO @33ml/hr-> HELD FOR RESIDUALS ENTERAL NUTRITION RECOMMENDATIONS: Nepro @ 33ml/hr x 24 hrs to provide 792ml, 1425kcal, 64g prot, 575ml free water As medically able rec to resume Nepro w/ goal of 33ml/hr x24 hrs -> flush per MD HOB over 30 degrees. -------- -> WITHOUT HEMODYNAMIC STABILITY, rec trophic feeding of Nepro @ 5-10ml/hr ADDITIONAL RECOMMENDATIONS: * Calibrated bedscale wt for accurate CBW Current EMR wt 220#'s vs initial bedscale wt 283lbs * Monitor HEMODYNAMIC stability- on pressors x2 * Monitor lytes- K trend up, phos elev, rec TF change to Nepro at this time * Monitor BGs closely- on magdalena only now * Monitor LFTs: trending up (new TF order will provide 14g less fat) . (2) COVID-19 Assessment & Plan: see above Theron Sotomayor April 08, 2020 10:54
--- NOTE | 2020-04-08 11:16 | Hematology/Onc Progress Note ---
Assessment/Plan Assessment/Plan Assessment and Recs # Pancytopenia -- multiple etiologies could be related to underlying liver disease, medication-induced, infection versus viral syndrome versus underlying bone marrow cause, in this case, has severe liver disease and cirrhosis, HEP C++ , also cellulitis, COVID19++ --> peripheral smear has been ordered and does not show significant abnormalities and none noted --> Medications have been reviewed --> Continue to monitor for improvement, trend cbc --> Hep panel and HIV are both negative --> US abd ordered to r/o cirrhosis and hepatosplenomegaly ->CIRRHOSIS IS NOTED , LARGE SPLEEN --> reverse isolation if ANC is <2000 --> Give neupogen if ANC <1000 --> Transfuse if hgb <7, with 1 unit prbc --> anemia panel ordered as well-->CW acd --> hgb trend 7-->7.1-->8.4-->8.2 -->8.7-->9.9-->9.2-->9.5-->9.1-->10.1 -->9--> 8.9 --> plt 145k-->152-->162k-->149k-->121k-->171k-->149-->163-->135-->100 --> wbc 3.4-->3.5->3.9->4.4-->11-->10.8 -->15->23-->26-->27-->26.7 -->14.3 --> abx: sameer/rifaximin-->levaquin /vanc-->sameer/vanc # Leukocytosis with Cellulitis of the lower extremities, SEPSIS --> continue abx as needed as per id --> Started on IV antibiotics-->azithro/cefepime-->levaquin-->sameer/vanc --> as per surg recs, wound care --> on steriods at this time, likely contributor --> ON MULTIPLE PRESSORS # Ftt --> remains on mirtazapine --> daily weights # Elevated LFTS --> as per gi --> due to cirrhosis # Respiratory failure --> s/p intubation 03/16 --> prone positioning as needed by pulm # Dvt ppx lovenox sq # Prognosis is VERY POOR The timing of this note does not necessarily reflect the time of the patient was seen. Greatly appreciate consultation. Subjective Allergies: Coded Allergies: No Known Allergies (Unverified , 02/29/20) Subjective 03/02 no events, no bleeding, hgb 7.1, no hemolysis 03/03 s/p blood, hgb improved to 8.4, stool ob negtive, on abx 03/05 asleep, no acute distress, hgb 8.2 03/06 remains comfortable, on abx, plt remains low 03/07 is on nonrebreather, no night sweats, labs are noted 03/08 labs reviewed, being diuresed, seen by cards, psych, labs noted 03/09 lasix adjusted, wbc remains low at 3.9, reviewed meds, smear 03/10 no night sweats, no bleeding, labs noted, smear noted 03/12 labs noted, none completed, have reordered, cellulitis better 03/13 is continuing with chest pain, cards aware, no further studies until covid neg 03/14 labs noted, no bleeding, diuresis as needed, hgb stable 03/15 alseep is cooperative, no bleeding, meds noted 03/16 no bleeding or chills, hgb 10.8, no night sweats, no major events 03/17 now intubated, no bleeding, labs noted, dw rn 03/19 remains intubated, no bleeding, labs noted, on pressors 03/20 prone posiition, seen by gi and renal, nob leeding, hgb 10.1 03/21 sedated, remains agitated, pulling on 2p restraints, no bleeding 03/22 icu, h/h stable, finished plaq/zithro, no acute distress 03/23 in icu, remains restless no bleeding, labs noted, no bleeding 03/24 in icu, poor prognosis, no night sweats, no fc 03/26 on vent, unresponsive, no bleeding, wbc high is on abx and steriods 03/27 remains on vent, ngt, no bleeding, already on abx on steriods 03/28 labs noted, no bleeding, wbc 23k, hgb 9, still with ongoing leukocytosis, ngt feeds 03/29 icu, started on sameer, steroids being tapered, wbc 26.4, no sob 03/30 no major changes, in icu, resp distress, on vent, wbc remains elevated 03/31 picc intact, wbc 26, amonia 104, no sob, continues on steroids 04/02 icu, nonverbal, vent, no distress 04/03 remains comotose is on vent, and pressors, no bleeding, dw rn in icu 04/04 no new changes, no acute distress 04/05 no overnight events, nonverbal, labs reviewed 04/06 no overnight events, icu, vent, no distress 04/07 at this time is on 4 pressors, remains in icu, no bleeding, hgb 8.7, worse 04/08 worsening, poor prognosis Objective Objective Current Medications Medications (Trade) Dose Ordered Sig/Dolores Route PRN Reason Start Time Stop Time Status Last Admin Dose Admin Acetaminophen (Tylenol) 650 mg Q4H PRN NG Temp >100.5 04/01/20 22:00 05/01/20 21:59 04/06/20 08:46 Acetaminophen (Tylenol) 650 mg Q4H PRN ORAL Mild Pain (Pain Scale 1-3) 03/13/20 14:53 04/12/20 14:52 04/01/20 21:26 Allopurinol (allopurinoL) 300 mg DAILY NG 04/04/20 10:32 05/04/20 10:31 04/08/20 08:13 Chlorhexidine Gluconate (Lucretia-Hex 2%) 1 applic DAILY@2000 TOPIC 03/13/20 20:00 06/11/20 19:59 04/07/20 20:46 Dextrose (Dextrose 50%) 25 ml Q30M PRN IV Hypoglycemia 04/03/20 00:00 07/02/20 00:00 Dextrose (Dextrose 50%) 50 ml Q30M PRN IV Hypoglycemia 04/03/20 00:00 07/02/20 00:00 Dopamine HCl/ Dextrose 250 ml @ 0 mls/hr Q24H IV 03/16/20 19:30 06/14/20 19:29 04/07/20 19:31 Dopamine HCl/ Dextrose 250 ml @ 0 mls/hr Q24H IV 04/07/20 20:30 04/12/20 20:29 04/08/20 09:26 Epinephrine 1 mg/ Dextrose 250 ml @ 0 mls/hr Q24H IV 04/08/20 08:30 05/08/20 08:29 04/08/20 09:26 Fluconazole (Diflucan) 200 mg DAILY NG 03/31/20 11:00 04/11/20 10:59 04/08/20 08:13 Hydralazine HCl (Apresoline) 10 mg Q6H PRN IV For High Blood Pressure 03/24/20 16:45 06/22/20 16:44 Insulin Aspart (NovoLOG) Q6HR SUBQ 04/03/20 00:00 07/02/20 00:00 04/05/20 23:53 Lactulose (Cephulac) 40 gm Q8HR ORAL 04/01/20 14:00 04/30/20 17:59 04/08/20 05:52 Levothyroxine Sodium (Synthroid) 50 mcg QOD IV 04/05/20 09:00 04/17/20 11:59 04/07/20 08:41 Meropenem 1 gm/ Sodium Chloride 55 ml @ 110 mls/hr Q8HR IVPB 03/29/20 14:00 04/11/20 13:59 04/08/20 05:52 Metoclopramide HCl (Reglan) 10 mg EVERY 6 HOURS IVP 04/04/20 12:00 05/04/20 11:59 04/08/20 05:51 Midodrine (Pro-Amatine) 10 mg THREE TIMES A DAY NG 03/27/20 09:00 06/20/20 12:29 04/08/20 08:12 Norepinephrine Bitartrate 16 mg/ Dextrose 566 ml @ 0 mls/hr Q24H IV 04/04/20 23:00 05/04/20 22:59 04/08/20 07:33 Phenylephrine HCl 100 mg/Dextrose 250 ml @ 0 mls/hr Q24H IV 04/06/20 16:00 05/06/20 15:59 04/08/20 09:27 Vancomycin HCl (Vanco rx to dose) 1 ea DAILY PRN MISC Per rx protocol 04/02/20 11:00 05/02/20 10:59 Vancomycin HCl 500 mg/Sodium Chloride 110 ml @ 110 mls/hr Q12HR@0600,1800 IVPB 04/02/20 18:00 04/11/20 17:59 04/08/20 05:52 Vasopressin 100 units/Sodium Chloride 100 ml @ 0 mls/hr Q24H PRN IV For hypotension 03/16/20 11:00 04/15/20 10:59 04/07/20 13:54 Last 24 Hour Vital Signs Date Time Temp Pulse Resp B/P (MAP) Pulse Ox O2 Delivery O2 Flow Rate FiO2 04/08/20 10:47 69 24 100 04/08/20 10:30 70 24 76/25 (42) 82 04/08/20 10:00 71 24 76/21 (39) 84 04/08/20 10:00 76/21 04/08/20 10:00 76/21 04/08/20 09:30 69 24 76/34 (48) 76 04/08/20 09:27 71 69/28 04/08/20 09:26 65/28 04/08/20 09:25 65/28 04/08/20 09:00 69 24 72/30 (44) 79 04/08/20 09:00 72/30 04/08/20 09:00 72/30 04/08/20 08:30 70 24 70/29 (43) 76 04/08/20 08:00 97.6 68 24 69/29 (42) 76 04/08/20 08:00 70 04/08/20 08:00 69/29 04/08/20 08:00 69/29 04/08/20 08:00 100 04/08/20 08:00 Mechanical Ventilator Mechanical Ventilator 04/08/20 07:33 67/33 04/08/20 07:30 67 24 54/27 (36) 80 04/08/20 07:01 68 24 100 04/08/20 07:00 67/33 04/08/20 07:00 67/33 04/08/20 07:00 68 24 67/37 (47) 76 04/08/20 06:30 69 24 68/34 (45) 77 04/08/20 06:00 69 24 72/32 (45) 77 04/08/20 06:00 68/32 04/08/20 06:00 68/32 04/08/20 05:30 69 24 70/33 (45) 76 04/08/20 05:00 68/30 04/08/20 05:00 68/30 04/08/20 05:00 69 24 67/29 (42) 85 04/08/20 04:30 69 22 64/24 (37) 83 04/08/20 04:15 67 24 100 04/08/20 04:00 72 04/08/20 04:00 100 04/08/20 04:00 Mechanical Ventilator Mechanical Ventilator 04/08/20 04:00 71/27 04/08/20 04:00 71/27 04/08/20 04:00 97.3 70 24 71/27 (42) 94 04/08/20 03:35 69 60/30 04/08/20 03:33 70/22 04/08/20 03:30 69 24 60/30 (40) 94 04/08/20 03:00 74/28 04/08/20 03:00 74/28 04/08/20 03:00 70 24 74/28 (43) 94 04/08/20 02:30 71 24 74/27 (43) 94 04/08/20 02:00 71 24 76/33 (47) 95 04/08/20 02:00 75/33 04/08/20 02:00 75/33 04/08/20 01:30 72 24 75/32 (46) 95 04/08/20 01:00 73 20 76/28 (44) 94 04/08/20 01:00 76/28 04/08/20 01:00 76/28 04/08/20 00:30 72 19 74/32 (46) 95 04/08/20 00:00 Mechanical Ventilator Mechanical Ventilator 04/08/20 00:00 100 04/08/20 00:00 75/32 04/08/20 00:00 75/32 04/08/20 00:00 76 04/08/20 00:00 97.4 72 19 75/32 (46) 95 04/07/20 23:30 73 21 79/33 (48) 95 04/07/20 23:00 72/35 04/07/20 23:00 72/35 04/07/20 23:00 73 21 72/35 (47) 96 04/07/20 22:57 73 23 100 04/07/20 22:30 73 17 77/30 (46) 95 04/07/20 22:23 68/25 20 22:01 77/31 04/07/20 22:01 77/31 04/07/20 22:00 73 40 76/30 (45) 96 73 04/07/20 21:45 73 44 71/33 (46) 97 04/07/20 21:30 73 48 80/33 (49) 96 04/07/20 21:15 74 46 81/29 (46) 96 04/07/20 21:00 81/29 04/07/20 21:00 81/29 04/07/20 21:00 74 45 81/35 (50) 96 04/07/20 20:47 75 85/31 04/07/20 20:45 74 51 85/37 (53) 96 04/07/20 20:30 73 41 75/28 (44) 96 04/07/20 20:15 74 30 80/30 (47) 96 04/07/20 20:00 Mechanical Ventilator Mechanical Ventilator 04/07/20 20:00 100 04/07/20 20:00 74 40 81/31 (48) 96 04/07/20 20:00 82/36 04/07/20 20:00 82/36 04/07/20 20:00 74 04/07/20 19:51 75 24 100 04/07/20 19:45 74 36 79/31 (47) 97 04/07/20 19:31 79/32 04/07/20 19:30 75 42 79/36 (50) 96 04/07/20 19:15 75 40 79/32 (48) 96 04/07/20 19:00 75 39 78/29 (45) 96 04/07/20 19:00 84/29 04/07/20 19:00 84/29 04/07/20 18:30 75 45 78/31 (47) 97 04/07/20 18:00 75 42 81/28 (45) 97 04/07/20 18:00 82/34 04/07/20 18:00 82/34 04/07/20 17:36 75 37 84/37 (53) 95 04/07/20 17:03 75 37 84/39 (54) 96 04/07/20 17:00 79/30 04/07/20 17:00 79/30 04/07/20 16:30 76 45 83/39 (54) 95 04/07/20 16:24 85/42 04/07/20 16:23 84/38 04/07/20 16:00 100 04/07/20 16:00 Mechanical Ventilator Mechanical Ventilator 04/07/20 16:00 85/42 04/07/20 16:00 85/42 04/07/20 16:00 98.2 76 42 86/41 (56) 95 04/07/20 16:00 75 04/07/20 15:30 76 40 83/41 (55) 96 04/07/20 15:00 82/42 04/07/20 15:00 82/42 04/07/20 15:00 76 45 84/38 (53) 96 04/07/20 14:32 76 24 100 04/07/20 14:30 76 42 83/34 (50) 95 04/07/20 14:18 95/41 04/07/20 14:00 76 42 83/34 (50) 95 04/07/20 14:00 95/41 04/07/20 14:00 95/41 04/07/20 13:30 76 43 85/40 (55) 97 04/07/20 13:20 77 95/41 04/07/20 13:20 95/41 04/07/20 13:00 95/41 04/07/20 13:00 95/41 04/07/20 13:00 75 39 92/37 (55) 98 04/07/20 12:26 76 37 95/42 (59) 97 04/07/20 12:00 98.1 76 47 86/43 (57) 98 04/07/20 12:00 86/43 04/07/20 12:00 86/43 04/07/20 12:00 Mechanical Ventilator Mechanical Ventilator 04/07/20 12:00 75 04/07/20 12:00 100 04/07/20 11:31 91/46 04/07/20 11:30 76 45 87/38 (54) 98 04/07/20 11:00 75 49 89/44 (59) 100 04/07/20 11:00 103/75 04/07/20 11:00 103/75 04/07/20 10:34 75 24 100 04/07/20 10:30 76 46 90/46 (61) 99 5/22/20 10:00 91/50 04/07/20 10:00 91/50 04/07/20 10:00 77 43 91/38 (55) 97 04/07/20 09:30 76 51 89/38 (55) 97 04/07/20 09:00 95/60 04/07/20 09:00 95/60 04/07/20 09:00 77 51 90/46 (61) 100 04/07/20 08:30 76 41 90/48 (62) 100 04/07/20 08:00 98.3 04/07/20 08:00 Mechanical Ventilator Mechanical Ventilator 04/07/20 08:00 76 42 91/44 (60) 99 04/07/20 08:00 96/51 04/07/20 08:00 96/51 04/07/20 08:00 100 04/07/20 08:00 76 04/07/20 07:10 78 24 100 04/07/20 07:00 78 24 89/48 (62) 99 04/07/20 07:00 89/48 04/07/20 07:00 89/48 04/07/20 06:29 94/41 04/07/20 06:28 94/41 04/07/20 06:00 94/47 04/07/20 06:00 94/47 04/07/20 06:00 77 24 91/46 (61) 100 04/07/20 05:30 77 24 94/46 (62) 100 04/07/20 05:30 77 91/44 04/07/20 05:15 77 24 91/41 (58) 100 04/07/20 05:13 91/44 04/07/20 05:00 77 24 93/48 (63) 100 04/07/20 05:00 91/44 04/07/20 05:00 91/44 04/07/20 04:45 77 24 91/44 (60) 100 04/07/20 04:30 77 24 94/45 (61) 100 04/07/20 04:15 77 24 94/36 (55) 100 04/07/20 04:11 90/44 04/07/20 04:00 99.4 78 24 90/44 (59) 98 04/07/20 04:00 100 04/07/20 04:00 77 5/22/20 04:00 96/42 04/07/20 04:00 96/42 04/07/20 04:00 Mechanical Ventilator Mechanical Ventilator 04/07/20 03:45 78 24 96/50 (65) 98 04/07/20 03:30 79 24 95/46 (62) 98 04/07/20 03:15 80 24 92/46 (61) 95 04/07/20 03:12 81 24 100 04/07/20 03:00 80 24 97/50 (66) 95 04/07/20 03:00 93/45 04/07/20 03:00 93/45 04/07/20 02:45 80 50 97/47 (64) 94 04/07/20 02:36 82 57 132/38 (69) 92 04/07/20 02:30 79 18 76/39 (51) 97 04/07/20 02:15 81 15 98/46 (63) 99 04/07/20 02:00 111/36 04/07/20 02:00 111/36 04/07/20 02:00 81 20 95/47 (63) 99 04/07/20 01:45 81 16 93/50 (64) 100 04/07/20 01:30 80 16 94/46 (62) 100 04/07/20 01:15 80 18 93/43 (60) 99 04/07/20 01:11 96/47 04/07/20 01:00 93/43 04/07/20 01:00 93/43 04/07/20 01:00 81 17 96/47 (63) 100 04/07/20 00:45 82 16 94/47 (63) 100 04/07/20 00:30 82 21 93/48 (63) 99 04/07/20 00:15 82 24 97/43 (61) 100 04/07/20 00:00 Mechanical Ventilator Mechanical Ventilator 04/07/20 00:00 100 04/07/20 00:00 99/47 04/07/20 00:00 99/46 04/07/20 00:00 82 24 99/46 (63) 100 04/07/20 00:00 83 04/06/20 23:45 82 24 95/48 (64) 99 04/06/20 23:30 82 24 91/43 (59) 100 04/06/20 23:24 82 24 100 04/06/20 23:15 81 24 96/48 (64) 99 04/06/20 23:00 81 24 93/47 (62) 100 20 23:00 93/47 20 23:00 93/47 04/06/20 22:45 81 24 98/49 (65) 100 20 22:30 81 24 96/47 (63) 100 20 22:16 83 94/49 20 22:16 94/49 20 22:00 94/49 20 22:00 94/49 20 22:00 83 24 94/49 (64) 100 04/06/20 21:45 83 24 99/47 (64) 100 04/06/20 21:30 83 24 101/44 (63) 100 04/06/20 21:00 95/48 04/06/20 21:00 95/48 04/06/20 21:00 82 24 93/43 (60) 100 04/06/20 20:45 82 24 100/36 (57) 100 04/06/20 20:30 82 24 102/50 (67) 100 04/06/20 20:23 95/47 04/06/20 20:15 82 24 96/41 (59) 99 20 20:00 Mechanical Ventilator Mechanical Ventilator 04/06/20 20:00 100.2 83 24 95/47 (63) 99 20 20:00 100 2120 20:00 95/47 20 20:00 95/47 20 20:00 87 04/06/20 19:45 83 24 92/42 (59) 100 04/06/20 19:44 83 24 100 04/06/20 19:36 88/40 04/06/20 19:33 82 24 78/36 (50) 99 20 19:30 83 24 88/40 (56) 100 20 19:00 99/47 20 19:00 99/47 20 19:00 83 46 99/47 (64) 100 20 18:30 83 39 94/46 (62) 99 04/06/20 18:00 95/46 04/06/20 18:00 95/46 04/06/20 18:00 82 24 95/46 (62) 100 04/06/20 17:30 83 35 95/43 (60) 100 04/06/20 17:04 89/46 04/06/20 17:04 89/46 04/06/20 17:00 84 58 89/46 (60) 99 04/06/20 16:33 84 84/41 04/06/20 16:32 84/41 04/06/20 16:30 84 53 91/46 (61) 99 04/06/20 16:30 84/41 04/06/20 16:00 100 04/06/20 16:00 Mechanical Ventilator Mechanical Ventilator 04/06/20 16:00 99.8 82 57 62/31 (41) 98 04/06/20 16:00 82 04/06/20 16:00 62/31 04/06/20 16:00 62/31 04/06/20 15:39 83 24 100 04/06/20 15:30 83 39 93/32 (52) 99 04/06/20 15:00 83 46 90/48 (62) 99 04/06/20 15:00 90/48 04/06/20 15:00 90/48 04/06/20 14:30 85 54 91/48 (62) 99 04/06/20 14:00 91/45 04/06/20 14:00 91/45 04/06/20 14:00 85 52 91/45 (60) 100 04/06/20 13:56 84 70/35 04/06/20 13:55 70/35 04/06/20 13:50 71/35 04/06/20 13:30 84 46 92/39 (56) 99 04/06/20 13:00 85 45 95/35 (55) 99 04/06/20 13:00 99/51 04/06/20 13:00 99/51 04/06/20 12:30 85 50 92/44 (60) 99 04/06/20 12:04 54/30 04/06/20 12:00 100 04/06/20 12:00 Mechanical Ventilator Mechanical Ventilator 04/06/20 12:00 89/38 04/06/20 12:00 89/38 04/06/20 12:00 100.0 84 39 91/42 (58) 97 04/06/20 12:00 83 04/06/20 11:30 86 40 93/34 (53) 99 04/06/20 11:16 85 24 100 Intake and Output 04/07/20 04/08/20 19:00 07:00 Intake Total 2448.452 ml 2027.499 ml Output Total 295 ml 105 ml Balance 2153.452 ml 1922.499 ml Free Water 70 ml IV Total 2378.452 ml 1967.499 ml Tube Feeding 0 ml 0 ml Other 60 ml Output Urine Total 295 ml 105 ml # Bowel Movements 1 Labs Test 04/06/20 03:20 04/07/20 03:11 04/07/20 07:25 White Blood Count 13.8 K/UL (4.8-10.8) 10.9 K/UL (4.8-10.8) Red Blood Count 2.39 M/UL (4.20-5.40) 2.40 M/UL (4.20-5.40) Hemoglobin 8.7 G/DL (12.0-16.0) 8.7 G/DL (12.0-16.0) Hematocrit 25.0 % (37.0-47.0) 25.0 % (37.0-47.0) Mean Corpuscular Volume 105 FL (80-99) 104 FL (80-99) Mean Corpuscular Hemoglobin 36.5 PG (27.0-31.0) 36.1 PG (27.0-31.0) Mean Corpuscular Hemoglobin Concent 34.9 G/DL (32.0-36.0) 34.7 G/DL (32.0-36.0) Red Cell Distribution Width 21.2 % (11.6-14.8) 19.7 % (11.6-14.8) Platelet Count 106 K/UL (150-450) 99 K/UL (150-450) Mean Platelet Volume 9.3 FL (6.5-10.1) 9.0 FL (6.5-10.1) Neutrophils (%) (Auto) 82.7 % (45.0-75.0) % (45.0-75.0) Lymphocytes (%) (Auto) 8.8 % (20.0-45.0) % (20.0-45.0) Monocytes (%) (Auto) 2.4 % (1.0-10.0) % (1.0-10.0) Eosinophils (%) (Auto) 5.7 % (0.0-3.0) % (0.0-3.0) Basophils (%) (Auto) 0.4 % (0.0-2.0) % (0.0-2.0) Sodium Level 126 MMOL/L (136-145) 119 MMOL/L (136-145) Potassium Level 3.8 MMOL/L (3.5-5.1) 4.2 MMOL/L (3.5-5.1) Chloride Level 91 MMOL/L (98-107) 87 MMOL/L (98-107) Carbon Dioxide Level 32 MMOL/L (21-32) 28 MMOL/L (21-32) Anion Gap 3 mmol/L (5-15) 4 mmol/L (5-15) Blood Urea Nitrogen 56 mg/dL (7-18) 60 mg/dL (7-18) Creatinine 0.7 MG/DL (0.55-1.30) 0.9 MG/DL (0.55-1.30) Estimat Glomerular Filtration Rate > 60 mL/min (>60) > 60 mL/min (>60) Glucose Level 143 MG/DL (74-106) 146 MG/DL (74-106) Uric Acid 11.5 MG/DL (2.6-7.2) 11.5 MG/DL (2.6-7.2) Calcium Level 7.3 MG/DL (8.5-10.1) 7.5 MG/DL (8.5-10.1) Phosphorus Level 5.3 MG/DL (2.5-4.9) 5.8 MG/DL (2.5-4.9) Magnesium Level 2.3 MG/DL (1.8-2.4) 2.4 MG/DL (1.8-2.4) Total Bilirubin 1.7 MG/DL (0.2-1.0) 1.6 MG/DL (0.2-1.0) Direct Bilirubin 0.9 MG/DL (0.0-0.3) 0.8 MG/DL (0.0-0.3) Aspartate Amino Transf (AST/SGOT) 460 U/L (15-37) 379 U/L (15-37) Alanine Aminotransferase (ALT/SGPT) 158 U/L (12-78) 126 U/L (12-78) Alkaline Phosphatase 471 U/L (46-116) 435 U/L (46-116) C-Reactive Protein, Quantitative 5.4 mg/dL (0.00-0.90) 7.1 mg/dL (0.00-0.90) Pro-B-Type Natriuretic Peptide 2187 pg/mL (0-125) 2105 pg/mL (0-125) Total Protein 5.5 G/DL (6.4-8.2) 5.5 G/DL (6.4-8.2) Albumin 1.9 G/DL (3.4-5.0) 1.8 G/DL (3.4-5.0) Globulin 3.6 g/dL 3.7 g/dL Albumin/Globulin Ratio 0.5 (1.0-2.7) 0.5 (1.0-2.7) Troponin I 0.060 ng/mL (0.000-0.056) Arterial Blood pH 7.328 (7.350-7.450) Arterial Blood Partial Pressure CO2 55.2 mmHg (35.0-45.0) Arterial Blood Partial Pressure O2 96.4 mmHg (75.0-100.0) Arterial Blood HCO3 28.3 mmol/L (22.0-26.0) Arterial Blood Oxygen Saturation 95.8 % (95-100) Arterial Blood Base Excess 1.8 (-2-2) Joaquin Test Positive Height (Feet): 5 Height (Inches): 1.00 Weight (Pounds): 286 Objective Physical Exam: Vitals: reviewed General: NAD HEENT: nc, at++ngt Neck: supple Chest: crackles b/l, mech breath sounds ++intubated Cardiovascular: RRR, no s3, s4 EXT ++ Significant edema and erythema bilateral lower extremity, patient also has blistering on both feet, picc+ Neurologic: sedated Skin: other - As above Brett Mcclain MD April 08, 2020 11:16
--- NOTE | 2020-04-08 11:33 | General Progress Note ---
Assessment/Plan Problem List: (1) Hypothyroid ICD Codes: E03.9 - Hypothyroidism, unspecified SNOMED: 21301654 (2) COVID-19 ICD Codes: U07.1 - COVID-19 SNOMED: 364086045 (3) Respiratory failure with hypoxia ICD Codes: J96.91 - Respiratory failure, unspecified with hypoxia SNOMED: 73038871807664174 Qualifiers: Qualified Codes: J96.01 - Acute respiratory failure with hypoxia (4) Cellulitis ICD Codes: L03.90 - Cellulitis, unspecified SNOMED: 594428942 Qualifiers: Qualified Codes: L03.119 - Cellulitis of unspecified part of limb (5) Hyperglycemia ICD Codes: R73.9 - Hyperglycemia, unspecified SNOMED: 67533460 Status: progressing, not improved Assessment/Plan: grim prognosis no need for basal insulin continue Novolog sliding scale every 6 hours TSH normalized continue Levothyroxine 50 mcg IV every other day Subjective ROS Limited/Unobtainable: Yes Allergies: Coded Allergies: No Known Allergies (Unverified , 02/29/20) Subjective events noted - interval notes reviewed comatose glucose values are stable Item Value Date Time Bedside Blood Glucose 109 mg/dl 04/08/20 0600 Bedside Blood Glucose 122 mg/dl H 04/08/20 0000 Bedside Blood Glucose 145 mg/dl H 04/07/20 1800 Bedside Blood Glucose 140 mg/dl H 04/07/20 1200 Objective Last 24 Hour Vital Signs Date Time Temp Pulse Resp B/P (MAP) Pulse Ox O2 Delivery O2 Flow Rate FiO2 04/08/20 10:47 69 24 100 04/08/20 10:30 70 24 76/25 (42) 82 04/08/20 10:00 71 24 76/21 (39) 84 04/08/20 10:00 76/21 04/08/20 10:00 76/21 04/08/20 09:30 69 24 76/34 (48) 76 04/08/20 09:27 71 69/28 04/08/20 09:26 65/28 04/08/20 09:25 65/28 04/08/20 09:00 69 24 72/30 (44) 79 04/08/20 09:00 72/30 04/08/20 09:00 72/30 04/08/20 08:30 70 24 70/29 (43) 76 04/08/20 08:00 97.6 68 24 69/29 (42) 76 04/08/20 08:00 70 04/08/20 08:00 69/29 04/08/20 08:00 69/29 04/08/20 08:00 100 04/08/20 08:00 Mechanical Ventilator Mechanical Ventilator 04/08/20 07:33 67/33 04/08/20 07:30 67 24 54/27 (36) 80 04/08/20 07:01 68 24 100 04/08/20 07:00 67/33 04/08/20 07:00 67/33 04/08/20 07:00 68 24 67/37 (47) 76 04/08/20 06:30 69 24 68/34 (45) 77 04/08/20 06:00 69 24 72/32 (45) 77 04/08/20 06:00 68/32 04/08/20 06:00 68/32 04/08/20 05:30 69 24 70/33 (45) 76 04/08/20 05:00 68/30 04/08/20 05:00 68/30 04/08/20 05:00 69 24 67/29 (42) 85 04/08/20 04:30 69 22 64/24 (37) 83 04/08/20 04:15 67 24 100 04/08/20 04:00 72 04/08/20 04:00 100 04/08/20 04:00 Mechanical Ventilator Mechanical Ventilator 04/08/20 04:00 71/27 04/08/20 04:00 71/27 04/08/20 04:00 97.3 70 24 71/27 (42) 94 20 03:35 69 60/30 04/08/20 03:33 70/22 04/08/20 03:30 69 24 60/30 (40) 94 04/08/20 03:00 74/28 04/08/20 03:00 74/28 04/08/20 03:00 70 24 74/28 (43) 94 20 02:30 71 24 74/27 (43) 94 20 02:00 71 24 76/33 (47) 95 04/08/20 02:00 75/33 04/08/20 02:00 75/33 5/23/20 01:30 72 24 75/32 (46) 95 04/08/20 01:00 73 20 76/28 (44) 94 04/08/20 01:00 76/28 04/08/20 01:00 76/28 04/08/20 00:30 72 19 74/32 (46) 95 04/08/20 00:00 Mechanical Ventilator Mechanical Ventilator 04/08/20 00:00 100 04/08/20 00:00 75/32 04/08/20 00:00 75/32 04/08/20 00:00 76 04/08/20 00:00 97.4 72 19 75/32 (46) 95 04/07/20 23:30 73 21 79/33 (48) 95 04/07/20 23:00 72/35 04/07/20 23:00 72/35 04/07/20 23:00 73 21 72/35 (47) 96 04/07/20 22:57 73 23 100 04/07/20 22:30 73 17 77/30 (46) 95 04/07/20 22:23 68/25 04/07/20 22:01 77/31 04/07/20 22:01 77/31 04/07/20 22:00 73 40 76/30 (45) 96 73 04/07/20 21:45 73 44 71/33 (46) 97 04/07/20 21:30 73 48 80/33 (49) 96 04/07/20 21:15 74 46 81/29 (46) 96 04/07/20 21:00 81/29 04/07/20 21:00 81/29 04/07/20 21:00 74 45 81/35 (50) 96 04/07/20 20:47 75 85/31 04/07/20 20:45 74 51 85/37 (53) 96 04/07/20 20:30 73 41 75/28 (44) 96 04/07/20 20:15 74 30 80/30 (47) 96 04/07/20 20:00 Mechanical Ventilator Mechanical Ventilator 04/07/20 20:00 100 04/07/20 20:00 74 40 81/31 (48) 96 04/07/20 20:00 82/36 04/07/20 20:00 82/36 04/07/20 20:00 74 04/07/20 19:51 75 24 100 04/07/20 19:45 74 36 79/31 (47) 97 04/07/20 19:31 79/32 04/07/20 19:30 75 42 79/36 (50) 96 04/07/20 19:15 75 40 79/32 (48) 96 04/07/20 19:00 75 39 78/29 (45) 96 04/07/20 19:00 84/29 04/07/20 19:00 84/29 04/07/20 18:30 75 45 78/31 (47) 97 04/07/20 18:00 75 42 81/28 (45) 97 04/07/20 18:00 82/34 04/07/20 18:00 82/34 04/07/20 17:36 75 37 84/37 (53) 95 04/07/20 17:03 75 37 84/39 (54) 96 04/07/20 17:00 79/30 04/07/20 17:00 79/30 04/07/20 16:30 76 45 83/39 (54) 95 04/07/20 16:24 85/42 04/07/20 16:23 84/38 04/07/20 16:00 100 04/07/20 16:00 Mechanical Ventilator Mechanical Ventilator 04/07/20 16:00 85/42 04/07/20 16:00 85/42 04/07/20 16:00 98.2 76 42 86/41 (56) 95 04/07/20 16:00 75 04/07/20 15:30 76 40 83/41 (55) 96 04/07/20 15:00 82/42 04/07/20 15:00 82/42 04/07/20 15:00 76 45 84/38 (53) 96 04/07/20 14:32 76 24 100 04/07/20 14:30 76 42 83/34 (50) 95 04/07/20 14:18 95/41 04/07/20 14:00 76 42 83/34 (50) 95 04/07/20 14:00 95/41 04/07/20 14:00 95/41 04/07/20 13:30 76 43 85/40 (55) 97 5/22/20 13:20 77 95/41 5/22/20 13:20 95/41 04/07/20 13:00 95/41 04/07/20 13:00 95/41 04/07/20 13:00 75 39 92/37 (55) 98 04/07/20 12:26 76 37 95/42 (59) 97 04/07/20 12:00 98.1 76 47 86/43 (57) 98 04/07/20 12:00 86/43 04/07/20 12:00 86/43 04/07/20 12:00 Mechanical Ventilator Mechanical Ventilator 04/07/20 12:00 75 04/07/20 12:00 100 Intake and Output 04/07/20 04/08/20 19:00 07:00 Intake Total 2448.452 ml 2027.499 ml Output Total 295 ml 105 ml Balance 2153.452 ml 1922.499 ml Free Water 70 ml IV Total 2378.452 ml 1967.499 ml Tube Feeding 0 ml 0 ml Other 60 ml Output Urine Total 295 ml 105 ml # Bowel Movements 1 Height (Feet): 5 Height (Inches): 1.00 Weight (Pounds): 286 General Appearance: other - comatose Neck: normal alignment Respiratory/Chest: lungs clear Abdomen: normal bowel sounds Objective Current Medications Medications (Trade) Dose Ordered Sig/Dolores Route PRN Reason Start Time Stop Time Status Last Admin Dose Admin Acetaminophen (Tylenol) 650 mg Q4H PRN NG Temp >100.5 04/01/20 22:00 05/01/20 21:59 04/06/20 08:46 Acetaminophen (Tylenol) 650 mg Q4H PRN ORAL Mild Pain (Pain Scale 1-3) 03/13/20 14:53 04/12/20 14:52 04/01/20 21:26 Allopurinol (allopurinoL) 300 mg DAILY NG 04/04/20 10:32 05/04/20 10:31 04/08/20 08:13 Chlorhexidine Gluconate (Lucretia-Hex 2%) 1 applic DAILY@1999 TOPIC 03/13/20 20:00 06/11/20 19:59 04/07/20 20:46 Dextrose (Dextrose 50%) 25 ml Q30M PRN IV Hypoglycemia 04/03/20 00:00 07/02/20 00:00 Dextrose (Dextrose 50%) 50 ml Q30M PRN IV Hypoglycemia 04/03/20 00:00 07/02/20 00:00 Dopamine HCl/ Dextrose 250 ml @ 0 mls/hr Q24H IV 03/16/20 19:30 06/14/20 19:29 04/07/20 19:31 Dopamine HCl/ Dextrose 250 ml @ 0 mls/hr Q24H IV 04/07/20 20:30 04/12/20 20:29 04/08/20 09:26 Epinephrine 1 mg/ Dextrose 250 ml @ 0 mls/hr Q24H IV 04/08/20 08:30 05/08/20 08:29 04/08/20 11:25 Fluconazole (Diflucan) 200 mg DAILY NG 03/31/20 11:00 04/11/20 10:59 04/08/20 08:13 Hydralazine HCl (Apresoline) 10 mg Q6H PRN IV For High Blood Pressure 03/24/20 16:45 06/22/20 16:44 Insulin Aspart (NovoLOG) Q6HR SUBQ 04/03/20 00:00 07/02/20 00:00 04/05/20 23:53 Lactulose (Cephulac) 40 gm Q8HR ORAL 04/01/20 14:00 04/30/20 17:59 04/08/20 05:52 Levothyroxine Sodium (Synthroid) 50 mcg QOD IV 04/05/20 09:00 04/17/20 11:59 04/07/20 08:41 Meropenem 1 gm/ Sodium Chloride 55 ml @ 110 mls/hr Q8HR IVPB 03/29/20 14:00 04/11/20 13:59 04/08/20 05:52 Metoclopramide HCl (Reglan) 10 mg EVERY 6 HOURS IVP 04/04/20 12:00 05/04/20 11:59 04/08/20 11:20 Midodrine (Pro-Amatine) 10 mg THREE TIMES A DAY NG 03/27/20 09:00 06/20/20 12:29 04/08/20 08:12 Norepinephrine Bitartrate 16 mg/ Dextrose 566 ml @ 0 mls/hr Q24H IV 04/04/20 23:00 05/04/20 22:59 04/08/20 07:33 Phenylephrine HCl 100 mg/Dextrose 250 ml @ 0 mls/hr Q24H IV 04/06/20 16:00 05/06/20 15:59 04/08/20 09:27 Vancomycin HCl (Vanco rx to dose) 1 ea DAILY PRN MISC Per rx protocol 04/02/20 11:00 05/02/20 10:59 Vancomycin HCl 500 mg/Sodium Chloride 110 ml @ 110 mls/hr Q12HR@0600,1800 IVPB 04/02/20 18:00 04/11/20 17:59 04/08/20 05:52 Vasopressin 100 units/Sodium Chloride 100 ml @ 0 mls/hr Q24H PRN IV For hypotension 03/16/20 11:00 04/15/20 10:59 04/07/20 13:54 Johan Christopher MD April 08, 2020 11:33
--- NOTE | 2020-04-08 11:54 | Nephrology Progress Note ---
Assessment/Plan Problem List: (1) Respiratory failure with hypoxia (2) Electrolyte imbalance Assessment: Hyponatremia resolved -hyperkalemia resolved (3) COVID-19 (4) Cellulitis (5) Hypothyroid Assessment Hyponatremia. Serum sodium started drifting down from March 16. Hyperkalemia. Septic shock. Acute respiratory failure. Respiratory failure and COVID pneumonia. History of cirrhosis/splenomegaly Anemia Bilateral lower extremity cellulitis Plan EEG: This is a severely abnormal EEG characterized by very low amplitude, slow activity with no reactivity to external stimulation. COMMENT: The study is consistent with severe encephalopathy. Clinical correlation is recommended. April 08: Discussed with DAO Gabriel Patient remains full code, apparently the daughters who were visiting yesterday did not make a decision for change of CODE STATUS Patient remains on 5 pressors, due to septic shock Blood pressure barely holding up In my opinion treatment at this point is futile and patient is preterminal I have not much to add from renal standpoint of view April 07: Patient on 4 pressors Unresponsive Blood pressure 90 systolic on 4 pressors As severe electrolyte imbalances including hypo-natremia Not a dialysis candidate Remains full code Family meeting is planned Prognosis is dismal April 06: Patient remains unresponsive on 3 pressors Edematous On ventilator Today's labs reviewed Hyponatremia and anemia worsened Overall poor prognosis yet remains full code Not much to add from renal standpoint of view at this stage since she is hemodynamically very unstable April 05: Patient is doing poorly on 3 pressors and remains unresponsive Remains full code Not much to add from renal standpoint of view Discussed with DAO Little Will give a trial of 3% saline for hyponatremia April 04: Patient stable from renal standpoint to view We will continue to watch BUN/creatinine and electrolytes Will add allopurinol for high uric acid Continue per consultants Remains full code Per orders April 03: Hypotensive, on pressors as needed Unresponsive Serum sodium improved Will administer another bolus of 3% saline Continue per consultants Not much to add from renal standpoint to view Prognosis poor, remain full code April 02: Blood pressure is maintained on pressors Remains unresponsive Today's lab reviewed 3% saline ordered EEG is severely abnormal Remains full code however prognosis is poor Discussed with DAO Huber ED April 01: Patient became hypoglycemic so long-acting insulin is held Potassium is 5.7 so albumin and Lasix in addition to Kayexalate is ordered Increase D5W to 100 cc an hour Blood sugar management per Endo Discussed with DAO Gabriel EEG ordered results pending Overall prognosis poor March 15: Increase lactulose dose 1 dose of Kayexalate Continue to monitor liver enzymes Patient unresponsive despite discontinuation of all mind altering medications Neuro eval? March 30 Electrolytes and bicarb improved We will cut down D5W IV fluid Blood sugar better controlled Liver enzymes still remains elevated Discussed with DAO March 13: Worsening leukocytosis Serum sodium lowering Blood sugar still elevated need insulin adjustment Continue to monitor electrolytes and renal parameters Continue per pulmonary Discussed with DAO Sarkar March 28: Serum sodium down to 160 Continue with D5W Continue per pulmonary March 27: Serum sodium vahe Patient retaining CO2 Will start D5W IV fluid Hold Diamox for now until further comments from station baggage porter Continue to monitor electrolytes Midodrine dose increased March 26: Remains unstable. Lasix and potassium chloride discontinued. IV Diamox initiated. ABG noted. Midodrine initiated. Continue per pulmonary and ID. Statins discontinued due to elevated liver enzymes. Continue to monitor electrolytes and renal parameters and ABG. Patient remains full code. 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 per curtain mender Taper steroids's deferred to station baggage porter Urine sodium is below 20 Serum ammonia is elevated will start lactulose Patient on Solu-Medrol and Solu-Cortef will discontinue Solu-Cortef Will try to gently diurese for severe edema meanwhile administering albumin 25% as needed Monitor electrolytes and renal parameters We will add midodrine 10 mg 3 times a day via NG tube Decrease dosage of IV Synthroid Discussed with DAO Starr Subjective ROS Limited/Unobtainable: Yes Objective Objective Last 24 Hour Vital Signs Date Time Temp Pulse Resp B/P (MAP) Pulse Ox O2 Delivery O2 Flow Rate FiO2 04/08/20 10:47 69 24 100 04/08/20 10:30 70 24 76/25 (42) 82 04/08/20 10:00 71 24 76/21 (39) 84 04/08/20 10:00 76/21 04/08/20 10:00 76/21 04/08/20 09:30 69 24 76/34 (48) 76 04/08/20 09:27 71 69/28 04/08/20 09:26 65/28 04/08/20 09:25 65/28 04/08/20 09:00 69 24 72/30 (44) 79 04/08/20 09:00 72/30 04/08/20 09:00 72/30 04/08/20 08:30 70 24 70/29 (43) 76 04/08/20 08:00 97.6 68 24 69/29 (42) 76 04/08/20 08:00 70 04/08/20 08:00 69/29 04/08/20 08:00 69/29 04/08/20 08:00 100 04/08/20 08:00 Mechanical Ventilator Mechanical Ventilator 04/08/20 07:33 67/33 04/08/20 07:30 67 24 54/27 (36) 80 04/08/20 07:01 68 24 100 04/08/20 07:00 67/33 04/08/20 07:00 67/33 04/08/20 07:00 68 24 67/37 (47) 76 04/08/20 06:30 69 24 68/34 (45) 77 04/08/20 06:00 69 24 72/32 (45) 77 04/08/20 06:00 68/32 04/08/20 06:00 68/32 04/08/20 05:30 69 24 70/33 (45) 76 04/08/20 05:00 68/30 04/08/20 05:00 68/30 04/08/20 05:00 69 24 67/29 (42) 85 04/08/20 04:30 69 22 64/24 (37) 83 04/08/20 04:15 67 24 100 04/08/20 04:00 72 04/08/20 04:00 100 04/08/20 04:00 Mechanical Ventilator Mechanical Ventilator 04/08/20 04:00 71/27 04/08/20 04:00 71/27 04/08/20 04:00 97.3 70 24 71/27 (42) 94 04/08/20 03:35 69 60/30 04/08/20 03:33 70/22 04/08/20 03:30 69 24 60/30 (40) 94 04/08/20 03:00 74/28 5/23/20 03:00 74/28 04/08/20 03:00 70 24 74/28 (43) 94 04/08/20 02:30 71 24 74/27 (43) 94 04/08/20 02:00 71 24 76/33 (47) 95 04/08/20 02:00 75/33 04/08/20 02:00 75/33 04/08/20 01:30 72 24 75/32 (46) 95 04/08/20 01:00 73 20 76/28 (44) 94 04/08/20 01:00 76/28 04/08/20 01:00 76/28 04/08/20 00:30 72 19 74/32 (46) 95 04/08/20 00:00 Mechanical Ventilator Mechanical Ventilator 04/08/20 00:00 100 04/08/20 00:00 75/32 04/08/20 00:00 75/32 04/08/20 00:00 76 04/08/20 00:00 97.4 72 19 75/32 (46) 95 04/07/20 23:30 73 21 79/33 (48) 95 04/07/20 23:00 72/35 04/07/20 23:00 72/35 04/07/20 23:00 73 21 72/35 (47) 96 04/07/20 22:57 73 23 100 04/07/20 22:30 73 17 77/30 (46) 95 04/07/20 22:23 68/25 04/07/20 22:01 77/31 04/07/20 22:01 77/31 04/07/20 22:00 73 40 76/30 (45) 96 73 04/07/20 21:45 73 44 71/33 (46) 97 04/07/20 21:30 73 48 80/33 (49) 96 04/07/20 21:15 74 46 81/29 (46) 96 04/07/20 21:00 81/29 04/07/20 21:00 81/29 04/07/20 21:00 74 45 81/35 (50) 96 04/07/20 20:47 75 85/31 04/07/20 20:45 74 51 85/37 (53) 96 04/07/20 20:30 73 41 75/28 (44) 96 5/22/20 20:15 74 30 80/30 (47) 96 04/07/20 20:00 Mechanical Ventilator Mechanical Ventilator 04/07/20 20:00 100 04/07/20 20:00 74 40 81/31 (48) 96 04/07/20 20:00 82/36 04/07/20 20:00 82/36 04/07/20 20:00 74 04/07/20 19:51 75 24 100 04/07/20 19:45 74 36 79/31 (47) 97 04/07/20 19:31 79/32 04/07/20 19:30 75 42 79/36 (50) 96 04/07/20 19:15 75 40 79/32 (48) 96 04/07/20 19:00 75 39 78/29 (45) 96 04/07/20 19:00 84/29 04/07/20 19:00 84/29 04/07/20 18:30 75 45 78/31 (47) 97 04/07/20 18:00 75 42 81/28 (45) 97 04/07/20 18:00 82/34 04/07/20 18:00 82/34 04/07/20 17:36 75 37 84/37 (53) 95 04/07/20 17:03 75 37 84/39 (54) 96 04/07/20 17:00 79/30 04/07/20 17:00 79/30 04/07/20 16:30 76 45 83/39 (54) 95 04/07/20 16:24 85/42 04/07/20 16:23 84/38 04/07/20 16:00 100 04/07/20 16:00 Mechanical Ventilator Mechanical Ventilator 04/07/20 16:00 85/42 04/07/20 16:00 85/42 04/07/20 16:00 98.2 76 42 86/41 (56) 95 04/07/20 16:00 75 04/07/20 15:30 76 40 83/41 (55) 96 04/07/20 15:00 82/42 04/07/20 15:00 82/42 04/07/20 15:00 76 45 84/38 (53) 96 04/07/20 14:32 76 24 100 04/07/20 14:30 76 42 83/34 (50) 95 04/07/20 14:18 95/41 04/07/20 14:00 76 42 83/34 (50) 95 04/07/20 14:00 95/41 04/07/20 14:00 95/41 04/07/20 13:30 76 43 85/40 (55) 97 04/07/20 13:20 77 95/41 04/07/20 13:20 95/41 04/07/20 13:00 95/41 04/07/20 13:00 95/41 04/07/20 13:00 75 39 92/37 (55) 98 04/07/20 12:26 76 37 95/42 (59) 97 04/07/20 12:00 98.1 76 47 86/43 (57) 98 04/07/20 12:00 86/43 04/07/20 12:00 86/43 04/07/20 12:00 Mechanical Ventilator Mechanical Ventilator 04/07/20 12:00 75 04/07/20 12:00 100 Intake and Output 04/07/20 04/08/20 19:00 07:00 Intake Total 2448.452 ml 2027.499 ml Output Total 295 ml 105 ml Balance 2153.452 ml 1922.499 ml Free Water 70 ml IV Total 2378.452 ml 1967.499 ml Tube Feeding 0 ml 0 ml Other 60 ml Output Urine Total 295 ml 105 ml # Bowel Movements 1 No labs drawn today Height (Feet): 5 Height (Inches): 1.00 Weight (Pounds): 286 EENT: other - Intubated on ventilator Cardiovascular: tachycardia Neurologic: unresponsive Objective No change Cristhian Granados MD April 08, 2020 11:54
[2020-04-08] MEDS ORDERED: Tubing IV Secondary IV ONE ×2 (13:26→14:07)
[2020-04-08] MEDS ORDERED: D5W 550ml IV ONE (13:26)
[2020-04-08] MEDS ORDERED: NS 275ml ONE ×4 (13:26→14:12)
[2020-04-08] MEDS ORDERED: Sterile Water Irrig 1000ml IRRIG ONE (14:08)
[2020-04-08] MEDS ORDERED: D5 1/2NS 1000ml IV ONE (14:08)
[2020-04-08] MEDS: Dyna-Hex 2% Top Sol 2oz TOPIC SCH (19:54)
[2020-04-08] MEDS: Vasopressin 100 UNITS in NS 95 ML IV PRN (21:46)
--- NOTE | 2020-04-08 21:57 | Cardiology Progress Note ---
Assessment/Plan Assessment/Plan 1. Acute hypoxic hypercapnic respiratory failure, due to bilateral airspace disease in additional to bilateral pleural effusion caused by COVID-19 infection , multiorgan failure, grim prognosis, low saturation despite high FiO2. 2. Septic shock on 4 vasopressors, LVEF at 60%. 3. Consumptive coagulopathy with thrombocytopenia. 4. Bilateral lower extremity cellulitis. 5. HCV infection with liver cirrhosis. 6. Anoxic/hepatic encephalopathy, ammonia elevated. 7. Severe hyponatremia. 8. Shock liver Subjective Subjective Sinus rhythm at rate of 66. On 4 vasopressors. Intubated. Hypotensive. Objective Last 24 Hour Vital Signs Date Time Temp Pulse Resp B/P (MAP) Pulse Ox O2 Delivery O2 Flow Rate FiO2 04/08/20 21:45 66 24 59/23 (35) 89 04/08/20 21:30 64 24 62/22 (35) 88 04/08/20 21:15 65 24 61/21 (34) 88 04/08/20 21:00 65 24 60/20 (33) 89 04/08/20 20:45 65 24 62/15 (31) 89 04/08/20 20:30 65 24 62/21 (35) 87 04/08/20 20:15 70 24 67/22 (37) 88 04/08/20 20:00 100 04/08/20 20:00 67 04/08/20 20:00 Mechanical Ventilator Mechanical Ventilator 04/08/20 20:00 67 24 70/23 (39) 83 04/08/20 19:55 61/21 04/08/20 19:45 66 24 61/21 (34) 87 04/08/20 19:30 66 23 63/23 (36) 85 04/08/20 19:15 64 22 59/19 (32) 88 04/08/20 19:11 68 24 100 04/08/20 19:00 58/22 04/08/20 19:00 58/22 04/08/20 19:00 65 24 61/23 (36) 89 04/08/20 18:30 66 24 58/22 (34) 88 04/08/20 18:00 57/24 04/08/20 18:00 57/24 04/08/20 18:00 65 24 57/24 (35) 89 04/08/20 17:30 66 24 57/25 (36) 84 04/08/20 17:19 57/25 04/08/20 17:18 63 59/25 04/08/20 17:00 60/25 04/08/20 17:00 60/25 04/08/20 17:00 64 24 60/25 (37) 85 04/08/20 16:30 97.2 64 24 57/25 (36) 82 04/08/20 16:00 100 04/08/20 16:00 Mechanical Ventilator Mechanical Ventilator 04/08/20 16:00 57/25 04/08/20 16:00 57/24 04/08/20 16:00 66 24 58/25 (36) 86 04/08/20 16:00 66 04/08/20 15:30 67 24 63/25 (38) 96 04/08/20 15:08 67 24 100 04/08/20 15:00 65/25 04/08/20 15:00 67 29 65/25 (38) 85 04/08/20 14:54 65/25 04/08/20 14:50 65/25 04/08/20 14:30 67 24 63/26 (38) 83 04/08/20 14:00 67 24 55/26 (36) 82 04/08/20 14:00 55/26 04/08/20 14:00 55/26 04/08/20 13:30 67 24 61/26 (38) 84 04/08/20 13:00 66/25 04/08/20 13:00 66/25 04/08/20 13:00 68 24 66/25 (39) 82 04/08/20 12:00 Mechanical Ventilator Mechanical Ventilator 04/08/20 12:00 69 04/08/20 12:00 100 04/08/20 12:00 64/25 04/08/20 12:00 64/25 04/08/20 12:00 97.2 69 24 64/25 (38) 82 04/08/20 11:30 68 24 60/36 (44) 82 04/08/20 11:00 70 24 70/25 (40) 85 04/08/20 11:00 70/25 04/08/20 11:00 70/25 04/08/20 10:47 69 24 100 04/08/20 10:30 70 24 76/25 (42) 82 04/08/20 10:00 71 24 76/21 (39) 84 04/08/20 10:00 76/21 04/08/20 10:00 76/21 04/08/20 09:30 69 24 76/34 (48) 76 04/08/20 09:27 71 69/28 04/08/20 09:26 65/28 04/08/20 09:25 65/28 04/08/20 09:00 69 24 72/30 (44) 79 04/08/20 09:00 72/30 04/08/20 09:00 72/30 04/08/20 08:30 70 24 70/29 (43) 76 04/08/20 08:00 97.6 68 24 69/29 (42) 76 04/08/20 08:00 70 04/08/20 08:00 69/29 04/08/20 08:00 69/29 04/08/20 08:00 100 04/08/20 08:00 Mechanical Ventilator Mechanical Ventilator 04/08/20 07:33 67/33 04/08/20 07:30 67 24 54/27 (36) 80 04/08/20 07:01 68 24 100 04/08/20 07:00 67/33 04/08/20 07:00 67/33 04/08/20 07:00 68 24 67/37 (47) 76 04/08/20 06:30 69 24 68/34 (45) 77 04/08/20 06:00 69 24 72/32 (45) 77 04/08/20 06:00 68/32 04/08/20 06:00 68/32 04/08/20 05:30 69 24 70/33 (45) 76 04/08/20 05:00 68/30 04/08/20 05:00 68/30 04/08/20 05:00 69 24 67/29 (42) 85 04/08/20 04:30 69 22 64/24 (37) 83 04/08/20 04:15 67 24 100 04/08/20 04:00 72 04/08/20 04:00 100 04/08/20 04:00 Mechanical Ventilator Mechanical Ventilator 04/08/20 04:00 71/27 04/08/20 04:00 71/27 04/08/20 04:00 97.3 70 24 71/27 (42) 94 04/08/20 03:35 69 60/30 04/08/20 03:33 70/22 04/08/20 03:30 69 24 60/30 (40) 94 04/08/20 03:00 74/28 04/08/20 03:00 74/28 04/08/20 03:00 70 24 74/28 (43) 94 04/08/20 02:30 71 24 74/27 (43) 94 04/08/20 02:00 71 24 76/33 (47) 95 04/08/20 02:00 75/33 04/08/20 02:00 75/33 04/08/20 01:30 72 24 75/32 (46) 95 04/08/20 01:00 73 20 76/28 (44) 94 04/08/20 01:00 76/28 04/08/20 01:00 76/28 04/08/20 00:30 72 19 74/32 (46) 95 04/08/20 00:00 Mechanical Ventilator Mechanical Ventilator 04/08/20 00:00 100 04/08/20 00:00 75/32 04/08/20 00:00 75/32 04/08/20 00:00 76 04/08/20 00:00 97.4 72 19 75/32 (46) 95 04/07/20 23:30 73 21 79/33 (48) 95 04/07/20 23:00 72/35 04/07/20 23:00 72/35 04/07/20 23:00 73 21 72/35 (47) 96 04/07/20 22:57 73 23 100 04/07/20 22:30 73 17 77/30 (46) 95 04/07/20 22:23 68/25 04/07/20 22:01 77/31 04/07/20 22:01 77/31 04/07/20 22:00 73 40 76/30 (45) 96 73 Intake and Output 04/07/20 04/08/20 19:00 07:00 Intake Total 2448.452 ml 2027.499 ml Output Total 295 ml 105 ml Balance 2153.452 ml 1922.499 ml Free Water 70 ml IV Total 2378.452 ml 1967.499 ml Tube Feeding 0 ml 0 ml Other 60 ml Output Urine Total 295 ml 105 ml # Bowel Movements 1 2D Echo: EF 60%, Mild LVH, Mild MR. RVSP 44 mmHg, Normal LVD Fxn Objective HEENT: Atraumatic and normocephalic. Anicteric. Intubated. NECK: JVP cannot be assessed. No carotid bruit. + ETT. CARDIOVASCULAR: Normal S1, S2. Regular rate and rhythm. No murmurs, gallops, or rubs. PMI is at fourth intercostal space at left midclavicular line. LUNGS: Bibasilar crackles. ABDOMEN: Soft, nontender, and nondistended. No hepatosplenomegaly. Positive bowel sounds. EXTREMITIES: A 3+ edema bilaterally associated with erythema with blistering and crust formation of both feet. Berto Gonzalez MD April 08, 2020 21:57
[2020-04-08] MEDS: D5W IV SCH (23:28)
[2020-04-08] MEDS: EPINEPHRINE IV SCH (23:28)
--- NOTE | 2020-04-08 23:45 | Pulmonolgy Critical Care Note ---
Critical Care - Asmt/Plan Assessment/Plan: Pulmonary CCM Progress Note HPI Patient is a 59 year old woman with severe COVID 19 Pneumonia, past history of significant obesity, cirrhosis, bilateral lower extremity swelling, cellulitis Persistent severe respiratory failure. Patient had previous hospitalizations for cellulitis. PMH Hypothyroidism, Obesity, Cirrhosis, Anemia, Anxiety, Cellulitis Remains unresponsive off sedation, pupils dilated, minimally reactive to pain, non purposeful, minimal triggering of ventilator, CT Head pending, not performed as COVID-19 positive. Neurology consulted. EEG severe encephalopathy Previous VQ no significant perfusion abnormality, prev LE dupplex negative, had high DDimer On four pressors, double concentrated, persistent hypotension Did not tolerating Proning previously Worsening PaO2/FIO2, P 18, FIO2 100%%, has elevated PaCO2, O2 sats 89% Renal following, hyponatremic Hypothyroidism, elevated glucose, Endocrine following, low 9:00 AM Cort[facility] previously - Remdesavir requested for when available, [facility] - not available as yet Previously received IL6 inhibitor inititial dose (4mg/Kg - all that was available), subsequent dose pending, previously on steroids See earlier Ethics/family meeting pending Allergies: No Known Allergies Past Medical History: Obesity, Cirrhosis, Anemia, Anxiety, Cellulitis, Hypothyroidism All Other Systems: negative except mentioned in HPI Physical Exam Vital Signs Noted General Appearance: Obese, no reaction to pain despite no sedation, intubated Head: normocephalic, atraumatic Eyes: pupils dilated and non responsive to light bilaterally ENT: moist MM, no LN Respiratory: Bilateral crackles, bilateral rhonchi, not overbreathing the ventilator Cardiovascular: regular rate, rhythm, HS1, HS2 RRR Gastrointestinal: Obese, soft non tender, ND Musculoskeletal: Mild edema and erythema bilateral lower extremity, patient has crusting on both feet, Neurologic: non responsive, no focal signs noted, no seizures, no response to pain Impression: Covid Pneumonia, s/p IL6 inhibitor, sp Hydroxychloroquine, Ivermectin Severe Respiratory Failure, high PEEP Persistent hypoxia, worsening PCO2 Bilateral dilated non reactive pupils, patient minimally responsive despite no sedation Not triggering ventilator currently Minimal response to pain Increased WCC - ID following ID following Bilateral Lower Extremity Cellulitis on admission Elevated NPA, severe bilateral edema - improving Cirrhosis, elevated transaminases/ammonia Splenomegaly Anemia Hypothyroidism Extremely poor prognosis Plan Neurology Consultated/CT head pending IV Antibiotics per ID S/p trial of steroids - currently 10 mg daily, being weaned to off, s/p IL6 inhibitor previously Surgery following for wounds Hematology following for anemia, observing for Neutropenia/thrombocytopenia Renal following for hypernatremia/volume status Endocrine following for Hypothyroidism, on ISS Monitor labs Bronchodilators PPX - SCD AC VC Proning PRN Supplement electrolytes PRN Albuterol PRN 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 Previously d/w Patients daughter Tri - discussed grave prognosis, possibility of patient having had possible stroke/IC event, suggested DNAR - wants full code Case d/w RN Previously [facility] - Remdesavir ordered, awaiting supply Labs Noted Chest X-Ray: Cardiomegaly, left lower lobe atelectasis versus effusion, worsening infiltrates/congestion Subjective ROS Limited/Unobtainable: No Constitutional: Reports: no symptoms Gastrointestinal/Abdominal: Reports: no symptoms Musculoskeletal: Reports: other - SOB Allergies: Coded Allergies: No Known Allergies (Unverified , 02/29/20) ICU time 50 minutes Critical Care - Objective Last 24 Hour Vital Signs Date Time Temp Pulse Resp B/P (MAP) Pulse Ox O2 Delivery O2 Flow Rate FiO2 04/08/20 23:00 59/19 04/08/20 23:00 59/19 04/08/20 22:00 62/14 04/08/20 22:00 62/14 04/08/20 21:45 66 24 59/23 (35) 89 04/08/20 21:30 64 24 62/22 (35) 88 04/08/20 21:15 65 24 61/21 (34) 88 04/08/20 21:00 65 24 60/20 (33) 89 04/08/20 21:00 60/20 04/08/20 21:00 60/20 04/08/20 20:45 65 24 62/15 (31) 89 04/08/20 20:30 65 24 62/21 (35) 87 04/08/20 20:15 70 24 67/22 (37) 88 04/08/20 20:00 100 04/08/20 20:00 67 04/08/20 20:00 Mechanical Ventilator Mechanical Ventilator 04/08/20 20:00 67 24 70/23 (39) 83 04/08/20 19:55 61/21 04/08/20 19:45 66 24 61/21 (34) 87 04/08/20 19:30 66 23 63/23 (36) 85 20 19:15 64 22 59/19 (32) 88 04/08/20 19:11 68 24 100 04/08/20 19:00 58/22 20 19:00 58/22 04/08/20 19:00 65 24 61/23 (36) 89 04/08/20 18:30 66 24 58/22 (34) 88 04/08/20 18:00 57/24 04/08/20 18:00 57/24 04/08/20 18:00 65 24 57/24 (35) 89 04/08/20 17:30 66 24 57/25 (36) 84 04/08/20 17:19 57/25 04/08/20 17:18 63 59/25 04/08/20 17:00 60/25 04/08/20 17:00 60/25 04/08/20 17:00 64 24 60/25 (37) 85 04/08/20 16:30 97.2 64 24 57/25 (36) 82 04/08/20 16:00 100 04/08/20 16:00 Mechanical Ventilator Mechanical Ventilator 04/08/20 16:00 57/25 04/08/20 16:00 57/24 04/08/20 16:00 66 24 58/25 (36) 86 04/08/20 16:00 66 04/08/20 15:30 67 24 63/25 (38) 96 04/08/20 15:08 67 24 100 04/08/20 15:00 65/25 04/08/20 15:00 67 29 65/25 (38) 85 04/08/20 14:54 65/25 04/08/20 14:50 65/25 04/08/20 14:30 67 24 63/26 (38) 83 04/08/20 14:00 67 24 55/26 (36) 82 04/08/20 14:00 55/26 04/08/20 14:00 55/26 04/08/20 13:30 67 24 61/26 (38) 84 04/08/20 13:00 66/25 04/08/20 13:00 66/25 04/08/20 13:00 68 24 66/25 (39) 82 04/08/20 12:00 Mechanical Ventilator Mechanical Ventilator 04/08/20 12:00 69 04/08/20 12:00 100 04/08/20 12:00 64/25 04/08/20 12:00 64/25 04/08/20 12:00 97.2 69 24 64/25 (38) 82 04/08/20 11:30 68 24 60/36 (44) 82 04/08/20 11:00 70 24 70/25 (40) 85 04/08/20 11:00 70/25 04/08/20 11:00 70/25 04/08/20 10:47 69 24 100 04/08/20 10:30 70 24 76/25 (42) 82 04/08/20 10:00 71 24 76/21 (39) 84 04/08/20 10:00 76/21 04/08/20 10:00 76/21 04/08/20 09:30 69 24 76/34 (48) 76 04/08/20 09:27 71 69/28 04/08/20 09:26 65/28 04/08/20 09:25 65/28 04/08/20 09:00 69 24 72/30 (44) 79 04/08/20 09:00 72/30 04/08/20 09:00 72/30 04/08/20 08:30 70 24 70/29 (43) 76 04/08/20 08:00 97.6 68 24 69/29 (42) 76 04/08/20 08:00 70 04/08/20 08:00 69/29 04/08/20 08:00 69/29 04/08/20 08:00 100 04/08/20 08:00 Mechanical Ventilator Mechanical Ventilator 04/08/20 07:33 67/33 04/08/20 07:30 67 24 54/27 (36) 80 04/08/20 07:01 68 24 100 04/08/20 07:00 67/33 04/08/20 07:00 67/33 04/08/20 07:00 68 24 67/37 (47) 76 04/08/20 06:30 69 24 68/34 (45) 77 04/08/20 06:00 69 24 72/32 (45) 77 04/08/20 06:00 68/32 04/08/20 06:00 68/32 04/08/20 05:30 69 24 70/33 (45) 76 04/08/20 05:00 68/30 04/08/20 05:00 68/30 04/08/20 05:00 69 24 67/29 (42) 85 04/08/20 04:30 69 22 64/24 (37) 83 04/08/20 04:15 67 24 100 04/08/20 04:00 72 04/08/20 04:00 100 04/08/20 04:00 Mechanical Ventilator Mechanical Ventilator 04/08/20 04:00 [id number] 04/08/20 04:00 04/08/20 04:00 97.3 70 24 (42) 94 04/08/20 03:35 69 60/30 04/08/20 03:33 70/22 04/08/20 03:30 69 24 60/30 (40) 94 04/08/20 03:00 74/28 04/08/20 03:00 74/28 04/08/20 03:00 70 24 74/28 (43) 94 04/08/20 02:30 71 24 74/ (43) 94 04/08/20 02:00 71 24 76/33 (47) 95 04/08/20 02:00 75/33 04/08/20 02:00 75/33 04/08/20 01:30 72 24 75/32 (46) 95 04/08/20 01:00 73 20 76/28 (44) 94 04/08/20 01:00 76/28 04/08/20 01:00 76/28 04/08/20 00:30 72 19 74/32 (46) 95 04/08/20 00:00 Mechanical Ventilator Mechanical Ventilator 04/08/20 00:00 100 04/08/20 00:00 75/32 04/08/20 00:00 75/32 04/08/20 00:00 76 04/08/20 00:00 97.4 72 19 75/32 (46) 95 Accucheck: 140 Critical Care - Subjective ROS Limited/Unobtainable: No Condition: critical FI02: 100 Vent Support Breath Rate: 24 Vent Support Mode: AC Vent Tidal Volume: 400 Sputum Amount: Small PEEP: 18.0 PIP: 34 Tube Feeding Amount: 0 I&O: Intake and Output 04/07/20 04/08/20 19:00 07:00 Intake Total 2448.452 ml 2027.499 ml Output Total 295 ml 105 ml Balance 2153.452 ml 1922.499 ml Free Water 70 ml IV Total 2378.452 ml 1967.499 ml Tube Feeding 0 ml 0 ml Other 60 ml Output Urine Total 295 ml 105 ml # Bowel Movements 1 ET-Tube: 7.5 ET Position: 21 Doron Carrillo MD April 08, 2020 23:45
[2020-04-09] VITALS (13 sets, daily range): BP systolic 0–61; BP diastolic 0–23
[2020-04-09] MEDS: PHENYLEPHRINE IV SCH (00:02)
[2020-04-09] MEDS: DEXTROSE IV SCH (00:02)
[2020-04-09] MEDS: DOPAMINE 800mg/250ml 250 ML IV SCH (01:10)
[2020-04-09] MEDS: D5W IV SCH (01:15)
[2020-04-09] MEDS: EPINEPHRINE IV SCH (01:15)
[2020-04-09] MEDS: Norepinephrine Bitartrate 16 MG in D5W 500ml 550 ML IV SCH (02:05)
[2020-04-09] MEDS ORDERED: Tubing IV Secondary IV ONE (02:49)
[2020-04-09] MEDS ORDERED: D5W 550ml IV ONE (02:49)
--- NOTE | 2020-04-09 02:57 | Emergency Room Report ---
History of Present Illness General Chief Complaint: Skin Rash/Abscess Source: Medical Record, PMD Present Illness HPI This is a 59-year-old female who was admitted here to the ICU for respiratory failure requiring intubation. She is positive for COVID and has ARDS. She is also in septic shock and is on 5 pressors that been maxed out. She coded tonight. I responded to the code. According to nursing staff, she went asystole and remained in asystole. No response to epinephrine. Please see the code sheet for full information. Because she remained in asystole I called the code at 2:50 AM. Allergies: Coded Allergies: No Known Allergies (Unverified , 02/29/20) COVID-19 Screening Contact w/high risk pt: No Recent Travel to affected area: No Experienced COVID-19 symptoms?: No COVID-19 Screening: Positive COVID-19 Patient History Now: No Nursing Documentation-[facility] Past Medical History: No History, Except For Physical Exam Vital Signs Date Time Temp Pulse Resp B/P (MAP) Pulse Ox O2 Delivery O2 Flow Rate FiO2 04/05/20 07:00 86 24 100/45 (63) 90 04/05/20 07:10 100 04/05/20 08:00 Mechanical Ventilator Mechanical Ventilator 04/05/20 08:00 99.0 Procedures CPR/Code Blue CPR/Code Blue Narrative Please see code sheet for medication and time given. Patient at 2:50 AM. Medical Decision Making Diagnostic Impression: Primary Impression: Cardiac arrest Additional Impressions: Acute respiratory distress syndrome (ARDS) due to COVID-19 virus Morbid obesity with BMI of 50.0-59.9, adult Last Vital Signs Date Time Temp Pulse Resp B/P (MAP) Pulse Ox O2 Delivery O2 Flow Rate FiO2 04/09/20 02:30 55 24 48/16 (27) 80 04/09/20 00:00 Mechanical Ventilator Mechanical Ventilator 04/09/20 00:00 100 04/09/20 00:00 98.4 Status: worsened Disposition: ADMITTED INPATIENT Condition: Referrals: NON PHYSICIAN (PCP) Branden Snow MD April 09, 2020 02:57
--- NOTE | 2020-04-11 14:31 | Discharge Summary ---
Discharge Summary Discharge Summary _ SUMMARY DATE OF ADMISSION: 02/29/2020 DATE OF EXPIRATION: 04/09/2020 REASON FOR ADMISSION: 59 years old female with past medical history of ypothyroidism, arthritis, presented to emergency department with increased swelling and redness of bilateral feet and legs. She reported that over the several days she experienced increased weakness and was unable to stand up. She denied any fever. No nausea , vomiting or diarrhea. Upon evaluation vital signs were stable. Laboratory work-up revealed no leukocytosis , hemoglobin 7.9 , hematocrit 24.1, platelet count 155. Urinalysis revealed +2 protein, pyuria and few bacteria. Chemistry showed stable electrolytes and renal parameters. Lactic acid 1.8. Total bili 1.1 , direct bili 0.5. AST 48 ,ALT 21 , total CK 244 . Albumin 2.0 . Troponin 0.015, pro BNP 968 . EKG revealed sinus rhythm, no acute ischemic changes. Chest x-ray demonstrated cardiomegaly , possible left basilar infiltrate versus edema. Patient started on broad-spectrum antibiotics and admitted for further management. CONSULTANTS: peer specialist Dr. Gonzalez neurologist Dr. Acosta pulmonary Dr. Carrillo ID specialist Dr. Jonathon Shah casing worker Dr. Granados broaching machine repairer/oncologist Dr. Mcclain surgery Dr. Sotomayor pruner Dr. Christopher Psychiatrist [facility] COURSE: Patient admitted and started on empiric antibiotics as per ID specialist recommendation for cellulitis. Wound care for cellulitis provided as per surgeon recommendation. Patient started on the IV fluids with close monitoring of volumes and cardiorenal parameters. Supplemental oxygen provided and titrated to keep pulse oximetry above 92%. Pulmonary toilet provided. Venous duplex bilateral lower extremity revealed no evidence of acute DVT.. VQ scan revealed limited exam , however no perfusion abnormalities to suggest acute pulmonary embolism were demonstrated. Echocardiogram revealed preserved ejection fraction of 60% with mild left ventricular hypertrophy. No evidence of wall motion abnormality. No evidence of pericardial effusion. Right ventricular systolic pressure of 44, consistent with a mild pulmonary hypertension. Troponin x2 were negative. EKG revealed no acute ischemic changes. Per peer specialist, chest pain was noncardiac. Blood cultures were negative. Wound culture of the right foot revealed Pseudomonas. Antibiotic optimized as per ID specialist recommendation. Patient was swabbed for COVID-19 and kept in isolation , given high risk / homeless. SARS CoV2 2 by PCR on 03/07 and was detected. Patient was treated with Plaquenil and antibiotic for superimposed pneumonia Patient received dose of ivermectin. Patient received dose of Actemra. Sputum culture revealed Stenotrophomonas , Achromobacter and Nidhi. Repeated sputum culture showed Pseudomonas. Antibiotic provided as per ID recommendation ; patient was kept in isolation. Repeated SARS COV 2 by PCR 03/24, 03/27 and 04/02 still detected. Interleukin-6 522. Blood cultures were negative. Stool for C. difficile was negative. Patient was becoming progressively more hypoxic. On 03/15 patient had worsening respiratory distress with hypoxia. ABG on 100% nonrebreathing mask revealed O2 sat of 85%. Intubation was discussed with patient who agreed to it. Patient subsequently was intubated by emergency room physician and moved to ICU. Ventilator support and pulmonary toilet provided. Patient was followed-up with chest x-ray and ABGs. Patient required subsequently higher PEEP. Last PEEP 18, FiO2 100%. Patient also noted to be hypotensive and started on Levophed with close monitoring of hemodynamic status. Patient started on Midodrine. However, she later required additional pressors to keep mean arterial blood pressure above 65. Patient was hemodynamically unstable and required multiple pressors , titrated to keep mean arterial blood pressure above 65. Significant leukocytosis noted on 03/28 likely due to steroids , which started earlier. Steroids tapered and stopped. Leukocytosis trended down. Patient showed progressive pancytopenia. Abdominal ultrasound revealed coarsened left echotexture and nodular contour, suggesting cirrhosis. Sequela of portal hypertension, including mild splenomegaly and trace perihepatic ascites. Gallbladder was not visualized , likely surgically absent. No biliary ductal dilatation. Hepatitis panel revealed evidence of hepatitis C infection. HIV test was nonreactive. Counts were closely monitored . Per broaching machine repairer, pancytopenia was most likely related to underlying severe liver disease with cirrhosis along with hepatitis C and COVID-19 infection. Peripheral smear did not show any significant abnormalities. Hemoglobin and hematocrit were closely monitored with goal to keep hemoglobin above 7. Patient undergone transfusion of 1 unit of packed red blood cells while in the hospital for hemoglobin 7.0. Stool for occult blood was negative Blood sugar was managed as per pruner recommendation. Patient had episodes of hyperglycemia . No need for basal insulin as per endocrinology. Sliding scale of insulin provided as needed. TSH initially elevated, but later normalized . Levothyroxine was continued via IV route. Renal parameters and electrolytes were closely monitored. Electrolytes corrected as needed, and nephrotoxins were avoided. LFT trended up, significantly elevated; likely due to shock liver. Patient also with hepatitis C and cirrhosis. Ammonia level on admission 68 , then trended up. Patient was on lactulose and Rifaximin. Nutrition provided via NG tube with strict aspiration precaution . NG tube feeding was on hold , given elevated residuals. Patient had bilateral dilated nonreactive pupils, was minimally responsive despite no sedation , and was not triggering ventilator , with minimal response to pain. Neurologist seen and evaluated patient . EEG on 04/01 revealed evidence of severe encephalopathy. No reactivity to external stimulation. Patient continued to be full code . Neurologist recommended to have another EEG as inpatient . Overall prognosis was extremely poor. Patient remained full code . Patient's daughters did not make any decision at that time yet. SHONDA KHAN was called on 04/09 Patient was on 5 different pressors, including dopamine, epinephrine, Levophed , phenylephrine, vasopressin. Unfortunately all resuscitative efforts proved to be futile . patient was pronounced at 2:50 a.m. on 04/09. Cause of : cardiopulmonary arrest secondary to COVID-19 infection FINAL DIAGNOSES: Status post cardiopulmonary arrest Acute hypoxemic hypercapnic respiratory failure due to bilateral airspace disease, requiring intubation Septic shock / on multiple pressors Confirmed COVID-19 pneumonia Consumptive coagulopathy with thrombocytopenia HCV infection with liver cirrhosis Anoxic/hepatic encephalopathy Severe hyponatremia Transaminitis, likely shock liver Bilateral leg cellulitis Pseudomonas pneumonia Morbid obesity Pancytopenia Diabetes mellitus with hyperglycemia Hypothyroidism with elevated TSH Failure to thrive Diarrhea/ stool C. difficile negative Electrolyte imbalance Morbid obesity I have been assigned to dictate discharge summary for this account. I was not involved in the patient's management. Tish Recinos NP April 11, 2020 14:31
== END 2020-04-09 02:50 | disposition expired | DRG 383 ==
LOC: EDBD 15:39 → EMR 16:05 → 4E 16:50 → EDBEDREQ 17:25 → 3E 03-05 15:44 → 2E 03-07 16:52 → ICU 03-13 09:37
PROC: 02HV33Z Insertion of Infusion Device into Superior Vena Cava, Percutaneous Approach (ICD-10-PCS; 2020-03-13)
PROC: B548ZZA Ultrasonography of Superior Vena Cava, Guidance (ICD-10-PCS; 2020-03-13)
PROC: 5A1955Z Respiratory Ventilation, Greater than 96 Consecutive Hours (ICD-10-PCS; principal; 2020-03-15)
PROC: 0BH17EZ Insertion of Endotracheal Airway into Trachea, Via Natural or Artificial Opening (ICD-10-PCS; principal; 2020-03-15)
DX: L03.115 Cellulitis of right lower limb (principal); L03.116 Cellulitis of left lower limb; D64.9 Anemia, unspecified; K74.60 Unspecified cirrhosis of liver; D69.6 Thrombocytopenia, unspecified; D61.818 Other pancytopenia; U07.1 COVID-19; J12.89 Other viral pneumonia; Z68.43 Body mass index [BMI] 50.0-59.9, adult; E66.01 Morbid (severe) obesity due to excess calories; I83.12 Varicose veins of left lower extremity with inflammation; I83.11 Varicose veins of right lower extremity with inflammation; Z59.0 Homelessness; F41.9 Anxiety disorder, unspecified; N39.0 Urinary tract infection, site not specified; B18.2 Chronic viral hepatitis C; E87.5 Hyperkalemia; E87.1 Hypo-osmolality and hyponatremia; J96.01 Acute respiratory failure with hypoxia; A41.89 Other specified sepsis; R65.21 Severe sepsis with septic shock; E03.9 Hypothyroidism, unspecified; E11.65 Type 2 diabetes mellitus with hyperglycemia; E11.43 Type 2 diabetes mellitus with diabetic autonomic (poly)neuropathy; G93.41 Metabolic encephalopathy; G93.1 Anoxic brain damage, not elsewhere classified; I65.1 Occlusion and stenosis of basilar artery; E87.0 Hyperosmolality and hypernatremia; E83.42 Hypomagnesemia; R62.7 Adult failure to thrive; R19.7 Diarrhea, unspecified; J15.1 Pneumonia due to Pseudomonas; K72.00 Acute and subacute hepatic failure without coma; K76.6 Portal hypertension
CPT/HCPCS: 36415; 36569; 36600; 71045; 74018; 76700; 76937; 78580; 80048; 80053; 80061; 80076; 80202; 80307; 81003; 82140; 82248; 82270; 82533; 82550; 82553; 82607; 82728; 82746; 82803; 82962; 82977; 83036; 83520; 83540; 83550; 83605; 83615; 83690; 83735; 83880; 83930; 83935; 84100; 84300; 84443; 84478; 84484; 84550; 85007; 85025; 85044; 85362; 85379; 85384; 85610; 86140; 86146; 86147; 86703; 86705; 86709; 86803; 86850; 86900; 86901; 86920; 87040; 87070; 87081; 87086; 87181; 87205; 87324; 87340; 87522; 87635; 93005; 93306; 93971; 94002; 94003; 94664; 95819; 96365; 96368; 99285; J1815; J2370; J2765; J3430; J7030; J8499; S5561